=== PATIENT | female | born 1990 | race Hispanic/Latino ===

== ENCOUNTER 2019-03-29 19:03 | Inpatient (IN) | payer MEDICAID ==
[~2019-03-29 19:03] MED LIST: ADRENALIN ONE; CALCIUM CHLORIDE IV ONE; D50W (25GM) Syringe IV ONE; NALOXONE ONE
[2019-03-29] MEDS ORDERED: NACL 0.9% 1000 ML 1,000 ML IV ONE ×4 (19:15→20:34)
--- NOTE | 2019-03-29 19:19 | Emergency Department Report ---
ED CPR HPI - General Stated Complaint: CARDIAC ARREST Time Seen by Provider: 03/29/19 19:03 Source: EMS Mode of arrival: Stretcher Limitations: Altered Mental Status, Physical Limitation - History of Present Illness Initial Comments: Patient is a 28-year-old female that presents emergency room in cardiac arrest. Patient found unresponsive by EMS. Report received from EMS. EMS states the patient was traveling from [place] to [place] and at 10:30 this morning got Robaxin to take a nap and it was her last known well time. Patient's friend was in the car did not realize until he got to a gas station close to the hospital the patient was monologue. The friend then called EMS. EMS started chest compressions and intubated the patient. Patient received multiple rounds of epi. Complaint: found unresponsive, unknown -: unknown Place: other Bystander CPR Performed: No AED Applied by Bystander/Javascript Engineer: No Shock Advised: No (N Wu) Initial Findings in the Field: unresponsive, no respirations, no pulse ROSC in the Field: No Associated Injuries: No Treatments Prior to Arrival: intubation, BMV, chest compressions, epinephrine mgs # - Related Data Allergies Allergy/AdvReac Type Severity Reaction Status Date / Time Unable to Assess Allergy Unverified 03/29/19 19:21 ED Review of Systems ROS: Stated complaint: CARDIAC ARREST Other details as noted in HPI Comment: Unobtainable due to pts medical conditions ED Physical Exam - General Limitations: Altered Mental Status, Physical Limitation, Other General appearance: obtunded - Head Head exam: Present: atraumatic, normocephalic - Eye Eye exam: Present: other (pupils fixed and dilated) - ENT ENT exam: Present: mucous membranes dry - Neck Neck exam: Present: normal inspection - Respiratory Respiratory exam: Present: other (patient intubated. T tube placement verified with bilateral breath sounds). Absent: respiratory distress - Cardiovascular Cardiovascular Exam: Present: other (patient pulseless on arrival) - GI/Abdominal GI/Abdominal exam: Present: soft - Rectal Rectal exam: Present: deferred - Extremities Exam Extremities exam: Present: normal inspection (except for track beebe on left AC) - Back Exam Back exam: Present: normal inspection - Neurological Exam Neurological exam: Present: altered - Skin Skin exam: Present: warm, dry, normal color, other (track beebe noted on left AC). Absent: rash ED Course Vital Signs 03/29/19 03/29/19 03/29/19 19:35 20:52 23:50 Pulse Rate 80 84 131 H Blood Pressure 77/34 83/39 90/32 O2 Sat by Pulse 97 100 100 Oximetry - Reevaluation(s) Reevaluation #1: CPR and chest compressions being done by EMS. Patient received. Report received from EMS. Cardiac arrest and code continued. Patient given multiple medications. See code note. 03/29/19 18:57 Reevaluation #2: Code Ran in accordance with ACLS guidelines. Patient had spontaneous return of circulation after going into V. fib and patient was shocked. See code note. She received bicarbonate, atropine, calcium during code. 03/29/19 19:10 Reevaluation #3: Patient started on Epi drip. pt hypotense. 03/29/19 19:20 Reevaluation #4: Maxed on epi drip and will be placed on Levophed 03/29/19 20:06 Labs came back patient is in DKA. Patient was DK protocol and insulin drip. Patient will be given more fluids. Patient is are received 3 L of normal saline. Patient's significant acidotic given some more bicarbonate. 03/29/19 20:36 Patient is currently on 2 drips. Patient will have a central line placed 03/29/19 20:41 Central line placed. See procedure note. Patient is still hypotensive. 03/29/19 21:29 Patient still hypotensive. Dobutamine drip has been added. Patient was started on a bicarbonate drip 03/29/19 22:20 Reevaluation #5: Is currently on dobutamine, appendectomy and norepinephrine and patient is still hypotensive. 03/29/19 23:13 - Consultations Consultation #1: Hospitalist consult for admission. Hospitalist admit patient. 03/29/19 23:13 - Central Line Placement Right Femoral Consent Obtained: emergent situation Time Out Performed: Yes Patient Placed on Monitor/Pulse Ox: Yes MD Prep: mask, gown, gloves Central Line Prep: Chlorhexidine scrub, sterile drapes applied Ultrasound Used for Placement: Yes Central Line Lumen Inserted: triple Bloods Obtained for Lab: Yes Central Line Position: good blood return, all ports aspirated, flus, sutured in place with 2-0 Dressing Applied: Tegaderm Patient Tolerated Procedure: well, no complications Complications: none ED Medical Decision Making - Lab Data Result diagrams: 03/29/19 19:20 03/30/19 00:11 - EKG Data -: EKG Interpreted by Me EKG shows normal: sinus rhythm, axis, intervals, QRS complexes, ST-T waves Rate: normal - EKG Data Interpretation: [facility] - Radiology Data Radiology results: report reviewed, image reviewed interpreted by me: ET tube in good placement. Negative chest x-ray CT HEAD WITHOUT CONTRAST INDICATION / CLINICAL INFORMATION: ams. cardiac arrest. TECHNIQUE: All CT scans at this location are performed using CT dose reduction for ALARA by means of automated exposure control. COMPARISON: None available. FINDINGS: Exam islimited secondary to moderate motion artifact. HEMORRHAGE: None. EXTRA-AXIAL SPACES: Normal in size and morphology for the patient's age. VENTRICULAR SYSTEM: Normal in size and morphology for the patient's age. CEREBRAL PARENCHYMA: No significant abnormality. No acute territorial infarct. MIDLINE SHIFT OR HERNIATION: None. CEREBELLUM / BRAINSTEM: No significant abnormality. ORBITS: Normal as visualized. SOFT TISSUES of HEAD: No significant abnormality. CALVARIUM: No significant abnormality. PARANASAL SINUSES / MASTOID AIR CELLS: Normal as visualized. ADDITIONAL FINDINGS: None. IMPRESSION: 1. No acute intracranial abnormality. - Medical Decision Making Patient is a 28-year-old female that presents emergency room for cardiac arrest. code ran in accordance with ACLS guidelines. During code, patient had spontaneous return of circulation. Patient placed on pressors for hypotension. Patient had a central line placed. Patient's head CT negative. Patient's chest x-ray is negative except for ET tube in good place. Patient has multiple lab abnormalities and found to be in DKA and acidosis. Patient placed on insulin drip. Patient was given calcium during the code. Patient given multiple amps of bicarbonate and eventually placed on bicarbonate drip. She given empiric antibiotics in the ER. Patient given multiple normal saline boluses - Differential Diagnosis cardiac arrest. Critical Care Time: Yes Critical care attestation.: If time is entered above; I have spent that time in minutes in the direct care of this critically ill patient, excluding procedure time. Critical Care Time: 85 minutes ED Disposition Clinical Impression: Cardiac arrest, Hyperglycemia, Hyperkalemia, Hyperphosphatemia, Hypermagnesemia DKA, type 1 Qualifiers: Diabetes mellitus complication detail: with coma Qualified Code(s): E10.11 - Type 1 diabetes mellitus with ketoacidosis with coma Hypotension Qualifiers: Hypotension type: unspecified hypotension type Qualified Code(s): I95.9 - Hypotension, unspecified Renal failure Qualifiers: Renal failure chronicity: acute Acute renal failure type: unspecified Qualified Code(s): N17.9 - Acute kidney failure, unspecified Anemia Qualifiers: Anemia type: unspecified type Qualified Code(s): D64.9 - Anemia, unspecified Disposition: DC-09 OP ADMIT IP TO THIS HOSP Is pt being admited?: Yes Does the pt Need Aspirin: No Condition: Critical Time of Disposition: 23:22
[2019-03-29 19:28] LABS: Mean Corpuscular HGB Conc 22 % (30-34); Platelet Count 377 K/mm3 (140-440); Red Blood Count 2.52 M/mm3 (3.65-5.03); Red Cell Distribution Width 18.5 % (13.2-15.2)
[2019-03-29] MEDS ORDERED: ADRENALIN 8 MG in NACL 0.9% 250ML 242 ML IV ONE (19:30)
[2019-03-29 19:34] LABS: Hematocrit 37.3 % (30.3-42.9); Hemoglobin 8.1 gm/dl (10.1-14.3); Mean Corpuscular Volume 148 fl (79-97)
[2019-03-29 19:38] LABS: INR 1.95 (0.87-1.13)
[2019-03-29 19:46] LABS: Albumin 2.8 g/dL (3.9-5); BUN/Creatinine Ratio 25; Blood Urea Nitrogen 53 mg/dL (7-17); Hemolysis Index 15
[2019-03-29 19:47] LABS: Partial Thromboplastin Time 74.5 Sec. (24.2-36.6)
--- NOTE | 2019-03-29 20:02 | XRay Report ---
CHEST 1 VIEW INDICATION / CLINICAL INFORMATION: cardia arrest. s/p et. COMPARISON: None available. FINDINGS: SUPPORT DEVICES: Endotracheal tube is seen in good position above the melina. HEART / MEDIASTINUM: No significant abnormality. LUNGS / PLEURA: The right lung is clear. There is patchy density in the left lower lobe. No effusions are seen. No pneumothorax. ADDITIONAL FINDINGS: No significant additional findings. IMPRESSION: 1 Endotracheal tube in good position. Signer Name: Toni Ragsdale MD Signed: 03/29/2019 7:58 PM Workstation Name: [id number]
[2019-03-29] MEDS ORDERED: CEFEPIME/NS 2 GM/100 ML 2 GM/100 ML BAG IV ONE (20:08)
[2019-03-29] MEDS ORDERED: LEVOPHED DRIP 4 MG/NS 250 ML 4 MG/250 ML BAG IV ONE (20:09)
[2019-03-29 20:13] LABS: Alanine Aminotransferase 1034 units/L (7-56)
[2019-03-29] MEDS: LEVOPHED DRIP 4 MG/NS 250 ML 4 MG/250 ML BAG IV SCH (20:15)
[2019-03-29 20:17] LABS: Calcium 12.4 mg/dL (8.4-10.2)
[2019-03-29 20:25] LABS: Basophils % (Manual) 0 % (0.0-1.8); Eosinophils % (Manual) 0 % (0.0-4.3); Macrocytosis 2+; Myelocytes # (Manual) 0.3 K/mm3; Total Cells Counted 100
[2019-03-29 20:26] LABS: Large Platelets 1+; Platelet Clumps Few; Platelet Estimate Consistent w Auto; Poikilocytosis 1+
[2019-03-29] MEDS ORDERED: DOBUTREX DRIP 500MG/D5W 250ML 500 MG/250 ML BAG IV ONE (21:29)
[2019-03-29 21:42] LABS: Calcium 9.4 mg/dL (8.4-10.2)
[2019-03-29] MEDS: HumuLIN R 100 UNITS in NACL 0.9% 99 ML IV SCH (22:00)
[2019-03-29] MEDS ORDERED: KIONEX PO ONE (22:18)
[2019-03-29] MEDS ORDERED: SODIUM BICARBONATE 150 MEQ in D5W 1,000 ML IV ONE (22:20)
[2019-03-29] MEDS ORDERED: KIONEX ONE (23:28)
[2019-03-29 23:29] LABS: Calcium 8.4 mg/dL (8.4-10.2)
[2019-03-29] MEDS ORDERED: ZOFRAN IV PRN (23:34)
--- NOTE | 2019-03-29 23:43 | History and Physical Report ---
History of Present Illness Date of examination: 03/29/19 History of present illness: 28 year old woman with a history of diabetes was brought to the emergency room [facility]. Her last well-known time was 10:30 this morning, she was traveling with a friend, she was unresponsive in the back seat. EMS was called, CPR was s tarted and continued here in the emergency room. Patient was intubated in the ER, hypotensive started on dobutamine, epinephrine and Levophed drip, given IV fluids, found to be in DKA with several metabolic derangements. Review of system is unobtainable PAST MEDICAL HISTORY:diabetes PAST SURGICAL HISTORY:Unknown FAMILY HISTORY:Unknown SOCIAL HISTORY:Unknown Medications and Allergies Allergies Allergy/AdvReac Type Severity Reaction Status Date / Time quetiapine [From Seroquel] Allergy Rash Verified 03/30/19 11:28 Home Medications Medication Instructions Recorded Confirmed Last Taken Type ALPRAZolam [Xanax TAB] 0.25 mg PO QID 04/02/19 04/02/19 Unknown History HYDROcodone/APAP 7.5-325 7.5 - 325 mg PO Q6H PRN 04/02/19 04/02/19 Unknown History Insulin Aspart [NovoLOG 100 5 units SQ QAC 04/02/19 04/02/19 Unknown History UNITS/ML VIAL] Insulin Detemir [Levemir VIAL] 5 unit SQ BID 04/02/19 04/02/19 Unknown History Lurasidone HCl [Latuda] 80 mg PO QHS 04/02/19 04/02/19 Unknown History Ondansetron [Zofran TAB] 4 mg PO BID PRN 04/02/19 04/02/19 Unknown History Active Meds: Active Medications Acetaminophen (Tylenol) 650 mg PO Q4H PRN PRN Reason: Pain MILD(1-3)/Fever >100.5/WARE Dextrose (D50w (25gm) Syringe) 0 ml IV PRN PRN PRN Reason: Hypoglycemia Epinephrine 8 mg/ Sodium (Chloride) 250 mls @ 3.75 mls/hr IV TITR ONE; Protocol Stop: 04/01/19 14:09 Norepinephrine (Levophed Drip 4 Mg/Ns 250 Ml) 4 mg in 250 mls @ 7.5 mls/hr IV TITR ZAMZAM; Protocol Insulin Human Regular 100 (units/ Sodium Chloride) 100 mls @ 1 mls/hr IV TITR ZAMZAM; Protocol Sodium Bicarbonate 150 meq/ (Dextrose) 1,150 mls @ 75 mls/hr IV DIRECT ONE Stop: 03/30/19 13:39 Vasopressin 20 unit/ Sodium (Chloride) 101 mls @ 9.09 mls/hr IV TITR ZAMZAM; Protocol Vancomycin HCl (Vancomycin/Ns 1 Gm/250 Ml) 1 gm in 250 mls @ 167.007 mls/hr IV ONCE ONE; Protocol Stop: 03/30/19 01:02 Sodium Chloride (Nacl 0.9% 1000 Ml) 1,000 mls @ 150 mls/hr IV DIRECT ZAMZAM Dextrose/Sodium Chloride (D5/0.45ns) 1,000 mls @ 150 mls/hr IV DIRECT ZAMZAM Piperacillin Sod/Tazobactam Sod (Zosyn/Ns 2.25 Gm/50ml) 2.25 gm in 50 mls @ 100 mls/hr IV Q8HR ZAMZAM; Protocol Ondansetron HCl (Zofran) 4 mg IV Q8H PRN PRN Reason: Nausea And Vomiting Sodium Chloride (Sodium Chloride Flush Syringe 10 Ml) 10 ml IV BID ZAMZAM Sodium Chloride (Sodium Chloride Flush Syringe 10 Ml) 10 ml IV PRN PRN PRN Reason: LINE FLUSH Exam - Physical Exam Narrative exam: General Apperance: The patient lying in bed no acute distress, intubated HEENT: Normocephalic, atraumatic. Pupils equally round, pinpoint and reactive to light, unable to do extraocular movement intact, and no sclericterus or JVD or thyromegaly or nodule. Neck supple, no carotid bruit, mucous membranes dry, ET tube in place Heart: S1-S2, regular is rhythm Lungs: Clear to auscultation bilaterally, breathing comfortable Abdomen: Positive bowel sounds, soft, nondistended, no organomegaly Extremities: No edema cyanosis clubbing Skin: no rash, nodule, warm and dry Neuro: sedated - Constitutional Vitals: Temp Pulse Resp BP Pulse Ox 84 83/39 100 03/29/19 20:52 03/29/19 20:52 03/29/19 20:52 Results - Labs CBC & Chem 7: 04/09/19 05:35 04/09/19 05:35 Labs: Abnormal lab results 03/29/19 03/29/19 03/29/19 Range/Units 19:20 19:20 19:20 WBC 26.7 H (4.5-11.0) K/mm3 RBC 2.52 L (3.65-5.03) M/mm3 Hgb 8.1 L (10.1-14.3) gm/dl MCV 148 H (79-97) fl MCHC 22 L (30-34) % RDW 18.5 H (13.2-15.2) % Seg Neuts % (Manual) 82.0 H (40.0-70.0) % Lymphocytes % (Manual) 7.0 L (13.4-35.0) % Seg Neutrophils # Man 21.9 H (1.8-7.7) K/mm3 Monocytes # (Manual) 1.9 H (0.0-0.8) K/mm3 PT 21.8 H (12.2-14.9) Sec. INR 1.95 H (0.87-1.13) APTT 74.5 H* (24.2-36.6) Sec. POC ABG pH (7.35-7.45) POC ABG pO2 (80-105) VBG pH (7.320-7.420) Sodium 118 L* (137-145) mmol/L Potassium 9.0 H* (3.6-5.0) mmol/L Chloride 64.5 L (98-107) mmol/L Carbon Dioxide 7 L* (22-30) mmol/L BUN 53 H (7-17) mg/dL Creatinine 2.1 H (0.7-1.2) mg/dL Glucose 2196 H* (65-100) mg/dL Calcium 12.4 H* (8.4-10.2) mg/dL Phosphorus (2.5-4.5) mg/dL Magnesium (1.7-2.3) mg/dL AST 3900 H (5-40) units/L ALT 1034 H (7-56) units/L Alkaline Phosphatase 316 H (35-129) units/L Total Protein 5.1 L (6.3-8.2) g/dL Albumin 2.8 L (3.9-5) g/dL 03/29/19 03/29/19 03/29/19 Range/Units 19:47 20:59 22:45 WBC (4.5-11.0) K/mm3 RBC (3.65-5.03) M/mm3 Hgb (10.1-14.3) gm/dl MCV (79-97) fl MCHC (30-34) % RDW (13.2-15.2) % Seg Neuts % (Manual) (40.0-70.0) % Lymphocytes % (Manual) (13.4-35.0) % Seg Neutrophils # Man (1.8-7.7) K/mm3 Monocytes # (Manual) (0.0-0.8) K/mm3 PT (12.2-14.9) Sec. INR (0.87-1.13) APTT (24.2-36.6) Sec. POC ABG pH 6.892 L (7.35-7.45) POC ABG pO2 236 H (80-105) VBG pH 6.800 L* (7.320-7.420) Sodium (137-145) mmol/L Potassium (3.6-5.0) mmol/L Chloride 84.3 L (98-107) mmol/L Carbon Dioxide (22-30) mmol/L BUN 48 H (7-17) mg/dL Creatinine 1.8 H (0.7-1.2) mg/dL Glucose (65-100) mg/dL Calcium (8.4-10.2) mg/dL Phosphorus (2.5-4.5) mg/dL Magnesium (1.7-2.3) mg/dL AST (5-40) units/L ALT (7-56) units/L Alkaline Phosphatase (35-129) units/L Total Protein (6.3-8.2) g/dL Albumin (3.9-5) g/dL 03/29/19 03/29/19 Range/Units Unknown Unknown WBC (4.5-11.0) K/mm3 RBC (3.65-5.03) M/mm3 Hgb (10.1-14.3) gm/dl MCV (79-97) fl MCHC (30-34) % RDW (13.2-15.2) % Seg Neuts % (Manual) (40.0-70.0) % Lymphocytes % (Manual) (13.4-35.0) % Seg Neutrophils # Man (1.8-7.7) K/mm3 Monocytes # (Manual) (0.0-0.8) K/mm3 PT (12.2-14.9) Sec. INR (0.87-1.13) APTT (24.2-36.6) Sec. POC ABG pH (7.35-7.45) POC ABG pO2 (80-105) VBG pH (7.320-7.420) Sodium 122 L (137-145) mmol/L Potassium 7.9 H* (3.6-5.0) mmol/L Chloride 75.3 L (98-107) mmol/L Carbon Dioxide 3 L* (22-30) mmol/L BUN 52 H (7-17) mg/dL Creatinine 2.0 H (0.7-1.2) mg/dL Glucose 2043 H* (65-100) mg/dL Calcium (8.4-10.2) mg/dL Phosphorus 19.30 H (2.5-4.5) mg/dL Magnesium 3.90 H (1.7-2.3) mg/dL AST (5-40) units/L ALT (7-56) units/L Alkaline Phosphatase (35-129) units/L Total Protein (6.3-8.2) g/dL Albumin (3.9-5) g/dL - Imaging and Cardiology EKG: image reviewed Chest x-ray: report reviewed Assessment and Plan Assessment Acute respiratory failure Cardiac arrest DKA, severe Hypotension, rule out sepsis Acute renal failure Hyperkalemia Shock liver Coagulopathy Hypermagnesemia Hyperphosphatemia Metabolic acidosis Plan Admit to medicine Discontinue dobutamine, epinephrine drip, patient with severe tachycardia Start vasopressin, continue Levophed drip, start IV fluid Initiate DKA protocol with insulin drip, fluids, status post cocktail for hyperkalemia Check cardiac enzymes, echo, monitor serial electrolytes Consult critical care, cardiology Start Vancomycin, Zosyn, follow cultures CT head pending Addendum Patient still tachycardic 140s, lopressor 2.5 given with good results Charge nurse spoke with mother, states patient is non-compliant, history of drug use she was just discharged from the hospital on Tuesday for DKA Addendum Patient had few episodes of seizure, aborted with IV Ativan Start Versed drip Addendum DC bicarbonate drip, repeat potassium Monitor sodium
[2019-03-29] MEDS ORDERED: D5/0.45NS 1,000 ML IV SCH (23:45)
[2019-03-29] MEDS ORDERED: NACL 0.9% 1000 ML 1,000 ML IV SCH (23:45)
[2019-03-29 23:55] LABS: Bilirubin,Urine NEG (Negative); Blood,Urine LG (Negative); Color,Urine Yellow (Yellow); Mucus,Urine FEW /HPF; Urobilinogen,Urine < 2.0 mg/dL (<2.0)
[2019-03-29 23:58] LABS: Amphetamine Screen,Urine PRESUMPTIVE NEGATIVE; Benzodiazepines Screen,Urine PRESUMPTIVE NEGATIVE; Cannabinoid Screen,Urine PRESUMPTIVE NEGATIVE; Cocaine Screen,Urine PRESUMPTIVE NEGATIVE; Methadone Screen,Urine PRESUMPTIVE NEGATIVE; Opiate Screen,Urine PRESUMPTIVE NEGATIVE
[2019-03-30 00:04] LABS: Creatine Kinase MB 3.1 ng/mL (0.0-4.0)
[2019-03-30 00:33] LABS: Calcium 7.8 mg/dL (8.4-10.2)
[2019-03-30] MEDS ORDERED: VANCOMYCIN/NS 1 GM/250 ML 1 GM/250 ML BAG IV ONE (01:00)
[2019-03-30] MEDS ORDERED: LEVOPHED DRIP 4 MG/NS 250 ML 4 MG/250 ML BAG IV ONE ×4 (01:21→08:55)
--- NOTE | 2019-03-30 02:08 | Cat Scan Report ---
CT HEAD WITHOUT CONTRAST INDICATION / CLINICAL INFORMATION: ams. cardiac arrest. TECHNIQUE: All CT scans at this location are performed using CT dose reduction for ALARA by means of automated e xposure control. COMPARISON: None available. FINDINGS: Exam islimited secondary to moderate motion artifact. HEMORRHAGE: None. EXTRA-AXIAL SPACES: Normal in size and morphology for the patient's age. VENTRICULAR SYSTEM: Normal in size and morphology for the patient's age. CEREBRAL PARENCHYMA: No significant abnormality. No acute territorial infarct. MIDLINE SHIFT OR HERNIATION: None. CEREBELLUM / BRAINSTEM: No significant abnormality. ORBITS: Normal as visualized. SOFT TISSUES of HEAD: No significant abnormality. CALVARIUM: No significant abnormality. PARANASAL SINUSES / MASTOID AIR CELLS: Normal as visualized. ADDITIONAL FINDINGS: None. IMPRESSION: 1. No acute intracranial abnormality. Signer Name: Unruly Hurtado MD Signed: 03/30/2019 2:04 AM Workstation Name: [id number]
[2019-03-30] MEDS ORDERED: METOPROLOL IV ONE ×2 (02:36→02:45)
[2019-03-30] MEDS: Vasostrict 20 UNIT in NACL 0.9% 100 ML IV SCH ×2 (02:40→17:18)
[2019-03-30 02:49] LABS: Calcium 7.9 mg/dL (8.4-10.2)
[2019-03-30] MEDS ORDERED: TYLENOL PR ONE ×2 (04:14→04:15)
[2019-03-30] MEDS ORDERED: NACL 0.9% 1000 ML 2,000 ML IV ONE (04:20)
[2019-03-30] MEDS: PHENYLEPHRINE IV SCH ×2 (04:20→11:00)
[2019-03-30] MEDS: NACL 0.9% IV SCH ×2 (04:20→11:00)
[2019-03-30] MEDS ORDERED: NACL 0.9% 1000 ML 1,000 ML IV ONE (04:21)
[2019-03-30] MEDS ORDERED: NACL 0.9% 1000 ML 2,000 ML ONE (04:22)
[2019-03-30] MEDS ORDERED: ATIVAN IV ONE ×2 (04:35→13:00)
[2019-03-30] MEDS ORDERED: ATIVAN ONE ×2 (04:38→11:24)
[2019-03-30] MEDS ORDERED: MIDAZOLAM 100 MG in NACL 0.9% 80 ML IV SCH ×2 (05:00→14:00)
[2019-03-30] MEDS ORDERED: NACL 0.9% 1000 ML 1,000 ML IV SCH (05:00)
[2019-03-30 05:21] LABS: Hematocrit 23.8 % (30.3-42.9); Hemoglobin 7.3 gm/dl (10.1-14.3); Mean Corpuscular HGB Conc 31 % (30-34); Mean Corpuscular Volume 103 fl (79-97); Platelet Count 375 K/mm3 (140-440); Red Blood Count 2.31 M/mm3 (3.65-5.03); Red Cell Distribution Width 17.1 % (13.2-15.2)
[2019-03-30 05:58] LABS: Creatine Kinase MB 52.7 ng/mL (0.0-4.0)
[2019-03-30] MEDS ORDERED: ZOSYN/NS 2.25 GM/50ML 2.25 GM/50 ML BAG IV SCH ×2 (06:00→12:00)
[2019-03-30 06:13] LABS: Anisocytosis 1+; Band Neutrophils # (Manual) 0.7 K/mm3; Basophils % (Manual) 0 % (0.0-1.8); Eosinophils % (Manual) 0 % (0.0-4.3); Macrocytosis 1+; Total Cells Counted 100
[2019-03-30 06:14] LABS: Platelet Estimate Consistent w Auto
[2019-03-30 06:15] LABS: Albumin 2.4 g/dL (3.9-5); Calcium 7.3 mg/dL (8.4-10.2)
[2019-03-30] MEDS ORDERED: KCL 20MEQ/100ML 20 MEQ/100 ML BAG IV ONE (06:34)
[2019-03-30] MEDS ORDERED: KCL 10MEQ/100ML 20 MEQ/200 ML BAG IV ONE (06:39)
[2019-03-30] MEDS: KCL 10MEQ/100ML 10 MEQ/100 ML BAG IV SCH ×2 (06:40→11:36)
[2019-03-30] MEDS ORDERED: NACL 0.45% 1000 ML 1,000 ML IV SCH (08:00)
[2019-03-30] MEDS ORDERED: NACL 0.45% 1000 ML 1,000 ML IV ONE (08:54)
--- NOTE | 2019-03-30 11:18 | Consultation ---
History of Present Illness Consult date: 03/30/19 Requesting physician: PEGGY XIONG Reason for consult: other (DKA; Pneumonia; Acute Hyopoxemic Resp Failure) History of present illness: PULMONARY/CCM CONSULT NOTE (Full dictation # [id number]) Please see dictated notes for full details Medications and Allergies Allergies Allergy/AdvReac Type Severity Reaction Status Date / Time quetiapine [From Seroquel] Allergy Rash Verified 03/30/19 11:28 Active Meds: Active Medications Acetaminophen (Tylenol) 650 mg PO Q4H PRN PRN Reason: Pain MILD(1-3)/Fever >100.5/WARE Dextrose (D50w (25gm) Syringe) 0 ml IV PRN PRN PRN Reason: Hypoglycemia Famotidine (Pepcid) 20 mg IV BID ZAMZAM Norepinephrine (Levophed Drip 4 Mg/Ns 250 Ml) 4 mg in 250 mls @ 7.5 mls/hr IV TITR ZAMZAM; Protocol Last Titration: 03/30/19 10:45 Dose: Infused Documented by: Insulin Human Regular 100 (units/ Sodium Chloride) 100 mls @ 1 mls/hr IV TITR ZAMZAM; Protocol Last Titration: 03/30/19 11:05 Dose: Infused Documented by: Vasopressin 20 unit/ Sodium (Chloride) 101 mls @ 9.09 mls/hr IV TITR ZAMZAM; Protocol Last Titration: 03/30/19 04:53 Dose: 0.1 units/min, 30.3 mls/hr Documented by: Phenylephrine HCl 100 mg/ (Sodium Chloride) 100 mls @ 3 mls/hr IV TITR ZAMZAM; Protocol Last Titration: 03/30/19 04:50 Dose: 200 mcg/min, 12 mls/hr Documented by: Midazolam HCl 100 mg/ Sodium (Chloride) 100 mls @ 2 mls/hr IV TITR ZAMZAM; Protocol Sodium Chloride (Nacl 0.45% 1000 Ml) 1,000 mls @ 125 mls/hr IV DIRECT ZAMZAM Piperacillin Sod/Tazobactam Sod (Zosyn/Ns 2.25 Gm/50ml) 2.25 gm in 50 mls @ 100 mls/hr IV Q6HR ZAMZAM; Protocol Ondansetron HCl (Zofran) 4 mg IV Q8H PRN PRN Reason: Nausea And Vomiting Sodium Chloride (Sodium Chloride Flush Syringe 10 Ml) 10 ml IV BID ZAMZAM Sodium Chloride (Sodium Chloride Flush Syringe 10 Ml) 10 ml IV PRN PRN PRN Reason: LINE FLUSH Physical Examination Vital signs: Vital Signs Pulse Resp BP 96 H 16 69/33 03/29/19 19:15 03/29/19 19:15 03/29/19 19:15 Results - Laboratory Findings CBC and BMP: 03/30/19 04:23 03/30/19 05:26 ABG POC ABG pH 7.251 (7.35-7.45) L 03/30/19 03:15 POC ABG pO2 156 (80-105) H 03/30/19 03:15 POC ABG HCO3 9.4 (22-26 mml/L) 03/30/19 03:15 POC ABG Total CO2 10 (23-27mmol/L) 03/30/19 03:15 POC ABG O2 Sat 99 03/30/19 03:15 PT/INR, D-dimer PT 21.8 Sec. (12.2-14.9) H 03/29/19 19:20 INR 1.95 (0.87-1.13) H 03/29/19 19:20 Abnormal lab findings: Abnormal Labs 03/29/19 03/29/19 03/29/19 19:20 19:20 19:20 WBC 26.7 H RBC 2.52 L Hgb 8.1 L Hct MCV 148 H MCHC 22 L RDW 18.5 H Seg Neuts % (Manual) 82.0 H Lymphocytes % (Manual) 7.0 L Seg Neutrophils # Man 21.9 H Monocytes # (Manual) 1.9 H PT 21.8 H INR 1.95 H APTT 74.5 H* POC ABG pH POC ABG pO2 VBG pH Sodium 118 L* Potassium 9.0 H* Chloride 64.5 L Carbon Dioxide 7 L* BUN 53 H Creatinine 2.1 H Glucose 2196 H* Calcium 12.4 H* Phosphorus Magnesium AST 3900 H ALT 1034 H Alkaline Phosphatase 316 H Total Creatine Kinase CK-MB (CK-2) Total Protein 5.1 L Albumin 2.8 L 03/29/19 03/29/19 03/29/19 19:47 20:59 22:45 WBC RBC Hgb Hct MCV MCHC RDW Seg Neuts % (Manual) Lymphocytes % (Manual) Seg Neutrophils # Man Monocytes # (Manual) PT INR APTT POC ABG pH 6.892 L POC ABG pO2 236 H VBG pH 6.800 L* Sodium 132 L D Potassium 7.0 H* Chloride 84.3 L Carbon Dioxide 3 L* BUN 48 H Creatinine 1.8 H Glucose 1779 H* Calcium Phosphorus Magnesium AST ALT Alkaline Phosphatase Total Creatine Kinase CK-MB (CK-2) Total Protein Albumin 03/29/19 03/29/19 03/29/19 22:45 22:45 Unknown WBC RBC Hgb Hct MCV MCHC RDW Seg Neuts % (Manual) Lymphocytes % (Manual) Seg Neutrophils # Man Monocytes # (Manual) PT INR APTT POC ABG pH POC ABG pO2 VBG pH Sodium Potassium Chloride Carbon Dioxide BUN Creatinine Glucose Calcium Phosphorus 21.70 H 19.30 H Magnesium 4.70 H 3.90 H AST ALT Alkaline Phosphatase Total Creatine Kinase 363 H CK-MB (CK-2) Total Protein Albumin 03/29/19 03/30/19 03/30/19 Unknown 00:11 00:11 WBC RBC Hgb Hct MCV MCHC RDW Seg Neuts % (Manual) Lymphocytes % (Manual) Seg Neutrophils # Man Monocytes # (Manual) PT INR APTT POC ABG pH POC ABG pO2 VBG pH Sodium 122 L Potassium 7.9 H* 6.4 H* Chloride 75.3 L 89.7 L Carbon Dioxide 3 L* 12 L D BUN 52 H 46 H Creatinine 2.0 H 1.7 H Glucose 2043 H* 1591 H* Calcium 7.8 L Phosphorus 10.90 H D Magnesium 3.10 H AST ALT Alkaline Phosphatase Total Creatine Kinase CK-MB (CK-2) Total Protein Albumin 03/30/19 03/30/19 03/30/19 02:14 02:14 03:15 WBC RBC Hgb Hct MCV MCHC RDW Seg Neuts % (Manual) Lymphocytes % (Manual) Seg Neutrophils # Man Monocytes # (Manual) PT INR APTT POC ABG pH 7.251 L POC ABG pO2 156 H VBG pH Sodium Potassium Chloride Carbon Dioxide 9 L* BUN 45 H Creatinine 1.7 H Glucose 1155 H* Calcium 7.9 L Phosphorus 5.30 H D Magnesium 2.90 H AST ALT Alkaline Phosphatase Total Creatine Kinase CK-MB (CK-2) Total Protein Albumin 03/30/19 03/30/19 03/30/19 04:23 05:26 05:26 WBC 18.0 H RBC 2.31 L Hgb 7.3 L Hct 23.8 L D MCV 103 H MCHC RDW 17.1 H Seg Neuts % (Manual) 79.0 H Lymphocytes % (Manual) Seg Neutrophils # Man 14.2 H Monocytes # (Manual) PT INR APTT POC ABG pH POC ABG pO2 VBG pH Sodium 158 H D Potassium 3.5 L Chloride 109.3 H Carbon Dioxide 19 L D BUN 40 H Creatinine 1.5 H Glucose 760 H* Calcium 7.3 L Phosphorus Magnesium 2.60 H AST 02468 H ALT 2156 H Alkaline Phosphatase 271 H Total Creatine Kinase 2465 H CK-MB (CK-2) 52.7 H Total Protein 4.5 L Albumin 2.4 L
[2019-03-30] MEDS ORDERED: SUBLIMAZE IV PRN (11:24)
[2019-03-30] MEDS: LEVOPHED DRIP 4 MG/NS 250 ML 4 MG/250 ML BAG IV SCH ×2 (11:28→17:22)
[2019-03-30] MEDS: PEPCID IV SCH ×2 (11:29→22:00)
[2019-03-30] MEDS: HumuLIN R 100 UNITS in NACL 0.9% 99 ML IV SCH (12:00)
[2019-03-30] MEDS ORDERED: KCL 10MEQ/100ML 10 MEQ/100 ML BAG IV SCH (12:00)
[2019-03-30 13:11] LABS: ABG Base Excess -5.4 mmol/L (-2.0-3.0); ABG HCO3 18.8 mmol/L (20.0-26.0); ABG Methemoglobin 0.7 % (0.0-1.5); ABG Oxygen Saturation 83.8 % (95.0-99.0); ABG PCO2 30.8 mm Hg; ABG PH 7.402 pH Units (7.350-7.450); ABG PO2 47.8 mm Hg (80.0-90.0)
[2019-03-30] MEDS ORDERED: VERSED IV PRN (13:14)
[2019-03-30 13:45] LABS: INR 1.86 (0.87-1.13)
[2019-03-30 13:49] LABS: Calcium 7.2 mg/dL (8.4-10.2)
[2019-03-30] MEDS ORDERED: ZITHROMAX 500 MG in NACL 0.9% 250ML 250 ML IV SCH (14:00)
[2019-03-30] MEDS: D5W/0.45% NACL/KCL 20 MEQ 20 MEQ/1,000 ML BAG IV SCH (14:02)
[2019-03-30] MEDS: KEPPRA 500 MG in D5W 100 ML IV SCH ×2 (14:06→23:00)
[2019-03-30] MEDS: FLAGYL 500 MG/100 ML 500 MG/100 ML BAG IV SCH ×2 (14:11→23:00)
--- NOTE | 2019-03-30 14:12 | Event Note ---
Date: 03/30/19 Patient seen and examined Intubated on Vent, on pressor support, insulin drip, iv fluid Presented with cardiac arrest, respiratory failure, BG of 1779, K 7.0, Cr 2.1 cont current Mx and plan, monitor BMP, cont insulin drip, wean off vent and pressure support as tolerated
[2019-03-30 14:24] LABS: Calcium 7.2 mg/dL (8.4-10.2)
--- NOTE | 2019-03-30 14:33 | Consultation ---
History of Present Illness - Reason for Consult Consult date: 03/30/19 - History of Present Illness 28 yo F PMHx T1DM admitted to the hospital after being found unresponsive in DKA. She was travelling from [place] to [place] with a friend and was sleeping in the backseat of the car. It was wasn't noticed that she was unresponsive until they were at a gas station near here and EMS was called who performed chest compressions and intubated the patient. She was last known to be well at 10:30 this morning. On admission she was found to be in DKA with numerous metabolic derangements and acute liver injury. Febrile on admission to 101.2 with an improving leukocytosis to 18 from 26. She is currently receiving azithromycin, cefepime, metronidazole. 03/29 blood and sputum cultures are pending. Images personally reviewed: 03/[address] - without abnormality 03/29 CXR: LL patchy density. Past History Past Medical History: diabetes Past Surgical History: Other (Unable to obtain) Social history: other (Unable to obtain) Family history: other (Unable to obtain) Medications and Allergies Allergies Allergy/AdvReac Type Severity Reaction Status Date / Time quetiapine [From Seroquel] Allergy Rash Verified 03/30/19 11:28 Active Meds: Active Medications Acetaminophen (Tylenol) 650 mg PO Q4H PRN PRN Reason: Pain MILD(1-3)/Fever >100.5/WARE Dextrose (D50w (25gm) Syringe) 0 ml IV PRN PRN PRN Reason: Hypoglycemia Famotidine (Pepcid) 20 mg IV BID ZAMZAM Last Admin: 03/30/19 11:29 Dose: 20 mg Documented by: Fentanyl (Sublimaze) 50 mcg IV Q10MIN PRN PRN Reason: ANALGESIA Heparin Sodium (Porcine) (Heparin) 5,000 unit SUB-Q Q12HR ZAMZAM Hydrophilic Ointment (Vaseline Lip Therapy) 1 applic TP Q2HR PRN PRN Reason: Dry Lips Norepinephrine (Levophed Drip 4 Mg/Ns 250 Ml) 4 mg in 250 mls @ 7.5 mls/hr IV TITR ZAMZAM; Protocol Last Admin: 03/30/19 11:28 Dose: 18 mcg/min, 67.5 mls/hr Documented by: Insulin Human Regular 100 (units/ Sodium Chloride) 100 mls @ 1 mls/hr IV TITR ZAMZAM; Protocol Last Titration: 03/30/19 13:05 Dose: 2.5 units/hr, 2.5 mls/hr Documented by: Vasopressin 20 unit/ Sodium (Chloride) 101 mls @ 9.09 mls/hr IV TITR ZAMZAM; Protocol Last Titration: 03/30/19 04:53 Dose: 0.1 units/min, 30.3 mls/hr Documented by: Phenylephrine HCl 100 mg/ (Sodium Chloride) 100 mls @ 3 mls/hr IV TITR ZAMZAM; Protocol Last Admin: 03/30/19 11:00 Dose: 200 mcg/min, 12 mls/hr Documented by: Sodium Chloride (Nacl 0.45% 1000 Ml) 1,000 mls @ 125 mls/hr IV DIRECT ZAMZAM Fentanyl Citrate (Fentanyl Drip Premix) 2,000 mcg in 100 mls @ 2.2 mls/hr IV TITR ZAMZAM; Protocol Potassium Chloride/Dextrose/Sod Cl (D5w/0.45% Nacl/Kcl 20 Meq) 20 meq in 1,000 mls @ 125 mls/hr IV DIRECT ZAMZAM Last Admin: 03/30/19 14:02 Dose: 125 mls/hr Documented by: Levetiracetam 500 mg/ Dextrose 105 mls @ 400 mls/hr IV Q12HR ZAMZAM Last Admin: 03/30/19 14:06 Dose: 400 mls/hr Documented by: Metronidazole (Flagyl 500 Mg/100 Ml) 500 mg in 100 mls @ 100 mls/hr IV Q8HR ZAMZAM Last Admin: 03/30/19 14:11 Dose: 100 mls/hr Documented by: Cefepime HCl (Maxipime/Ns 2 Gm/100 Ml) 2 gm in 100 mls @ 200 mls/hr IV Q12HR ZAMZAM Azithromycin 500 mg/ Sodium (Chloride) 250 mls @ 250 mls/hr IV Q24HR ZAMZAM Last Admin: 03/30/19 13:53 Dose: 250 mls/hr Documented by: Midazolam HCl 100 mg/ Sodium (Chloride) 100 mls @ 2 mls/hr IV TITR ZAMZAM; Protocol Midazolam HCl (Versed) 2 mg IV Q10MIN PRN PRN Reason: Sedation Multi-Ingred Cream/Lotion/Oil/Oint (Artificial Tears Ophth Oint) 1 applic OU Q4HR PRN PRN Reason: Dry Eye(s) Ondansetron HCl (Zofran) 4 mg IV Q8H PRN PRN Reason: Nausea And Vomiting Sodium Chloride (Sodium Chloride Flush Syringe 10 Ml) 10 ml IV BID ZAMZAM Sodium Chloride (Sodium Chloride Flush Syringe 10 Ml) 10 ml IV PRN PRN PRN Reason: LINE FLUSH Review of Systems ROS unobtainable: due to endotracheal tube, due to mental status Physical Examination - Physical Exam Narrative exam: Physical Exam: Constitutional: Intubated, sedated Head, Ears, Nose: Normocephalic, atraumatic. External ears, nose normal Eyes: Conjunctivae/corneas clear. No icterus. No ptosis. Neck: Supple, no meningeal signs. Intubated Oral: dentition fair, no thrush Cardiovascular: S1, S2 normal. Respiratory: Good air entry, clear to auscultation bilaterally GI: Soft, non-tender; bowel sounds normal. No peritoneal signs. Musculoskeletal: No pedal edema, no cyanosis. Skin: No rash or abscess Hem/Lymphatic: No palpable cervical or supraclavicular nodes. No lymphangitis Neurological: Intubated, sedated - Constitutional Vitals: Vital Signs Temp Pulse Resp BP Pulse Ox 101.2 F H 120 H 32 H 125/73 95 03/30/19 04:00 03/30/19 11:08 03/30/19 07:45 03/30/19 07:45 03/30/19 11:08 Temperature -Last 24 Hours Temperature 101.2 F Temperature 97.9 F Temperature 90.2 F Results - Labs CBC & Chem 7: 03/30/19 04:23 03/30/19 Unknown Labs: Abnormal lab results 03/29/19 03/29/19 03/29/19 Range/Units 19:20 19:20 19:20 WBC 26.7 H (4.5-11.0) K/mm3 RBC 2.52 L (3.65-5.03) M/mm3 Hgb 8.1 L (10.1-14.3) gm/dl Hct (30.3-42.9) % MCV 148 H (79-97) fl MCHC 22 L (30-34) % RDW 18.5 H (13.2-15.2) % Seg Neuts % (Manual) 82.0 H (40.0-70.0) % Lymphocytes % (Manual) 7.0 L (13.4-35.0) % Seg Neutrophils # Man 21.9 H (1.8-7.7) K/mm3 Monocytes # (Manual) 1.9 H (0.0-0.8) K/mm3 PT 21.8 H (12.2-14.9) Sec. INR 1.95 H (0.87-1.13) APTT 74.5 H* (24.2-36.6) Sec. POC ABG pH (7.35-7.45) POC ABG pO2 (80-105) ABG pO2 (80.0-90.0) mm Hg ABG HCO3 (20.0-26.0) mmol/L ABG O2 Saturation (95.0-99.0) % ABG Base Excess (-2.0-3.0) mmol/L ABG Hemoglobin (12.0-16.0) gm/dl VBG pH (7.320-7.420) Oxyhemoglobin (95.0-99.0) % Sodium 118 L* (137-145) mmol/L Potassium 9.0 H* (3.6-5.0) mmol/L Chloride 64.5 L (98-107) mmol/L Carbon Dioxide 7 L* (22-30) mmol/L BUN 53 H (7-17) mg/dL Creatinine 2.1 H (0.7-1.2) mg/dL Glucose 2196 H* (65-100) mg/dL Lactic Acid (0.7-2.0) mmol/L Calcium 12.4 H* (8.4-10.2) mg/dL Phosphorus (2.5-4.5) mg/dL Magnesium (1.7-2.3) mg/dL AST 3900 H (5-40) units/L ALT 1034 H (7-56) units/L Alkaline Phosphatase 316 H (35-129) units/L Total Creatine Kinase (30-135) units/L CK-MB (CK-2) (0.0-4.0) ng/mL C-Reactive Protein (0.00-1.30) mg/dL Total Protein 5.1 L (6.3-8.2) g/dL Albumin 2.8 L (3.9-5) g/dL 09/05/19 09/05/19 09/05/19 Range/Units 19:47 20:59 22:45 WBC (4.5-11.0) K/mm3 RBC (3.65-5.03) M/mm3 Hgb (10.1-14.3) gm/dl Hct (30.3-42.9) % MCV (79-97) fl MCHC (30-34) % RDW (13.2-15.2) % Seg Neuts % (Manual) (40.0-70.0) % Lymphocytes % (Manual) (13.4-35.0) % Seg Neutrophils # Man (1.8-7.7) K/mm3 Monocytes # (Manual) (0.0-0.8) K/mm3 PT (12.2-14.9) Sec. INR (0.87-1.13) APTT (24.2-36.6) Sec. POC ABG pH 6.892 L (7.35-7.45) POC ABG pO2 236 H (80-105) ABG pO2 (80.0-90.0) mm Hg ABG HCO3 (20.0-26.0) mmol/L ABG O2 Saturation (95.0-99.0) % ABG Base Excess (-2.0-3.0) mmol/L ABG Hemoglobin (12.0-16.0) gm/dl VBG pH 6.800 L* (7.320-7.420) Oxyhemoglobin (95.0-99.0) % Sodium 132 L D (137-145) mmol/L Potassium 7.0 H* (3.6-5.0) mmol/L Chloride 84.3 L (98-107) mmol/L Carbon Dioxide 3 L* (22-30) mmol/L BUN 48 H (7-17) mg/dL Creatinine 1.8 H (0.7-1.2) mg/dL Glucose 1779 H* (65-100) mg/dL Lactic Acid (0.7-2.0) mmol/L Calcium (8.4-10.2) mg/dL Phosphorus (2.5-4.5) mg/dL Magnesium (1.7-2.3) mg/dL AST (5-40) units/L ALT (7-56) units/L Alkaline Phosphatase (35-129) units/L Total Creatine Kinase (30-135) units/L CK-MB (CK-2) (0.0-4.0) ng/mL C-Reactive Protein (0.00-1.30) mg/dL Total Protein (6.3-8.2) g/dL Albumin (3.9-5) g/dL 03/29/19 03/29/19 03/29/19 Range/Units 22:45 22:45 Unknown WBC (4.5-11.0) K/mm3 RBC (3.65-5.03) M/mm3 Hgb (10.1-14.3) gm/dl Hct (30.3-42.9) % MCV (79-97) fl MCHC (30-34) % RDW (13.2-15.2) % Seg Neuts % (Manual) (40.0-70.0) % Lymphocytes % (Manual) (13.4-35.0) % Seg Neutrophils # Man (1.8-7.7) K/mm3 Monocytes # (Manual) (0.0-0.8) K/mm3 PT (12.2-14.9) Sec. INR (0.87-1.13) APTT (24.2-36.6) Sec. POC ABG pH (7.35-7.45) POC ABG pO2 (80-105) ABG pO2 (80.0-90.0) mm Hg ABG HCO3 (20.0-26.0) mmol/L ABG O2 Saturation (95.0-99.0) % ABG Base Excess (-2.0-3.0) mmol/L ABG Hemoglobin (12.0-16.0) gm/dl VBG pH (7.320-7.420) Oxyhemoglobin (95.0-99.0) % Sodium (137-145) mmol/L Potassium (3.6-5.0) mmol/L Chloride (98-107) mmol/L Carbon Dioxide (22-30) mmol/L BUN (7-17) mg/dL Creatinine (0.7-1.2) mg/dL Glucose (65-100) mg/dL Lactic Acid (0.7-2.0) mmol/L Calcium (8.4-10.2) mg/dL Phosphorus 21.70 H 19.30 H (2.5-4.5) mg/dL Magnesium 4.70 H 3.90 H (1.7-2.3) mg/dL AST (5-40) units/L ALT (7-56) units/L Alkaline Phosphatase (35-129) units/L Total Creatine Kinase 363 H (30-135) units/L CK-MB (CK-2) (0.0-4.0) ng/mL C-Reactive Protein (0.00-1.30) mg/dL Total Protein (6.3-8.2) g/dL Albumin (3.9-5) g/dL 03/29/19 03/30/19 03/30/19 Range/Units Unknown 00:11 00:11 WBC (4.5-11.0) K/mm3 RBC (3.65-5.03) M/mm3 Hgb (10.1-14.3) gm/dl Hct (30.3-42.9) % MCV (79-97) fl MCHC (30-34) % RDW (13.2-15.2) % Seg Neuts % (Manual) (40.0-70.0) % Lymphocytes % (Manual) (13.4-35.0) % Seg Neutrophils # Man (1.8-7.7) K/mm3 Monocytes # (Manual) (0.0-0.8) K/mm3 PT (12.2-14.9) Sec. INR (0.87-1.13) APTT (24.2-36.6) Sec. POC ABG pH (7.35-7.45) POC ABG pO2 (80-105) ABG pO2 (80.0-90.0) mm Hg ABG HCO3 (20.0-26.0) mmol/L ABG O2 Saturation (95.0-99.0) % ABG Base Excess (-2.0-3.0) mmol/L ABG Hemoglobin (12.0-16.0) gm/dl VBG pH (7.320-7.420) Oxyhemoglobin (95.0-99.0) % Sodium 122 L (137-145) mmol/L Potassium 7.9 H* 6.4 H* (3.6-5.0) mmol/L Chloride 75.3 L 89.7 L (98-107) mmol/L Carbon Dioxide 3 L* 12 L D (22-30) mmol/L BUN 52 H 46 H (7-17) mg/dL Creatinine 2.0 H 1.7 H (0.7-1.2) mg/dL Glucose 2043 H* 1591 H* (65-100) mg/dL Lactic Acid (0.7-2.0) mmol/L Calcium 7.8 L (8.4-10.2) mg/dL Phosphorus 10.90 H D (2.5-4.5) mg/dL Magnesium 3.10 H (1.7-2.3) mg/dL AST (5-40) units/L ALT (7-56) units/L Alkaline Phosphatase (35-129) units/L Total Creatine Kinase (30-135) units/L CK-MB (CK-2) (0.0-4.0) ng/mL C-Reactive Protein (0.00-1.30) mg/dL Total Protein (6.3-8.2) g/dL Albumin (3.9-5) g/dL 03/30/19 03/30/19 03/30/19 Range/Units 02:14 02:14 03:15 WBC (4.5-11.0) K/mm3 RBC (3.65-5.03) M/mm3 Hgb (10.1-14.3) gm/dl Hct (30.3-42.9) % MCV (79-97) fl MCHC (30-34) % RDW (13.2-15.2) % Seg Neuts % (Manual) (40.0-70.0) % Lymphocytes % (Manual) (13.4-35.0) % Seg Neutrophils # Man (1.8-7.7) K/mm3 Monocytes # (Manual) (0.0-0.8) K/mm3 PT (12.2-14.9) Sec. INR (0.87-1.13) APTT (24.2-36.6) Sec. POC ABG pH 7.251 L (7.35-7.45) POC ABG pO2 156 H (80-105) ABG pO2 (80.0-90.0) mm Hg ABG HCO3 (20.0-26.0) mmol/L ABG O2 Saturation (95.0-99.0) % ABG Base Excess (-2.0-3.0) mmol/L ABG Hemoglobin (12.0-16.0) gm/dl VBG pH (7.320-7.420) Oxyhemoglobin (95.0-99.0) % Sodium (137-145) mmol/L Potassium (3.6-5.0) mmol/L Chloride (98-107) mmol/L Carbon Dioxide 9 L* (22-30) mmol/L BUN 45 H (7-17) mg/dL Creatinine 1.7 H (0.7-1.2) mg/dL Glucose 1155 H* (65-100) mg/dL Lactic Acid (0.7-2.0) mmol/L Calcium 7.9 L (8.4-10.2) mg/dL Phosphorus 5.30 H D (2.5-4.5) mg/dL Magnesium 2.90 H (1.7-2.3) mg/dL AST (5-40) units/L ALT (7-56) units/L Alkaline Phosphatase (35-129) units/L Total Creatine Kinase (30-135) units/L CK-MB (CK-2) (0.0-4.0) ng/mL C-Reactive Protein (0.00-1.30) mg/dL Total Protein (6.3-8.2) g/dL Albumin (3.9-5) g/dL 03/30/19 03/30/19 03/30/19 Range/Units 04:23 05:26 05:26 WBC 18.0 H (4.5-11.0) K/mm3 RBC 2.31 L (3.65-5.03) M/mm3 Hgb 7.3 L (10.1-14.3) gm/dl Hct 23.8 L D (30.3-42.9) % MCV 103 H (79-97) fl MCHC (30-34) % RDW 17.1 H (13.2-15.2) % Seg Neuts % (Manual) 79.0 H (40.0-70.0) % Lymphocytes % (Manual) (13.4-35.0) % Seg Neutrophils # Man 14.2 H (1.8-7.7) K/mm3 Monocytes # (Manual) (0.0-0.8) K/mm3 PT (12.2-14.9) Sec. INR (0.87-1.13) APTT (24.2-36.6) Sec. POC ABG pH (7.35-7.45) POC ABG pO2 (80-105) ABG pO2 (80.0-90.0) mm Hg ABG HCO3 (20.0-26.0) mmol/L ABG O2 Saturation (95.0-99.0) % ABG Base Excess (-2.0-3.0) mmol/L ABG Hemoglobin (12.0-16.0) gm/dl VBG pH (7.320-7.420) Oxyhemoglobin (95.0-99.0) % Sodium 158 H D (137-145) mmol/L Potassium 3.5 L (3.6-5.0) mmol/L Chloride 109.3 H (98-107) mmol/L Carbon Dioxide 19 L D (22-30) mmol/L BUN 40 H (7-17) mg/dL Creatinine 1.5 H (0.7-1.2) mg/dL Glucose 760 H* (65-100) mg/dL Lactic Acid (0.7-2.0) mmol/L Calcium 7.3 L (8.4-10.2) mg/dL Phosphorus (2.5-4.5) mg/dL Magnesium 2.60 H (1.7-2.3) mg/dL AST 27978 H (5-40) units/L ALT 2156 H (7-56) units/L Alkaline Phosphatase 271 H (35-129) units/L Total Creatine Kinase 2465 H (30-135) units/L CK-MB (CK-2) 52.7 H (0.0-4.0) ng/mL C-Reactive Protein (0.00-1.30) mg/dL Total Protein 4.5 L (6.3-8.2) g/dL Albumin 2.4 L (3.9-5) g/dL 03/30/19 03/30/1919 Range/Units 12:57 12:57 12:57 WBC (4.5-11.0) K/mm3 RBC (3.65-5.03) M/mm3 Hgb (10.1-14.3) gm/dl Hct (30.3-42.9) % MCV (79-97) fl MCHC (30-34) % RDW (13.2-15.2) % Seg Neuts % (Manual) (40.0-70.0) % Lymphocytes % (Manual) (13.4-35.0) % Seg Neutrophils # Man (1.8-7.7) K/mm3 Monocytes # (Manual) (0.0-0.8) K/mm3 PT 21.0 H (12.2-14.9) Sec. INR 1.86 H (0.87-1.13) APTT (24.2-36.6) Sec. POC ABG pH (7.35-7.45) POC ABG pO2 (80-105) ABG pO2 (80.0-90.0) mm Hg ABG HCO3 (20.0-26.0) mmol/L ABG O2 Saturation (95.0-99.0) % ABG Base Excess (-2.0-3.0) mmol/L ABG Hemoglobin (12.0-16.0) gm/dl VBG pH (7.320-7.420) Oxyhemoglobin (95.0-99.0) % Sodium 156 H (137-145) mmol/L Potassium 3.2 L (3.6-5.0) mmol/L Chloride 116.4 H (98-107) mmol/L Carbon Dioxide 21 L (22-30) mmol/L BUN 37 H (7-17) mg/dL Creatinine (0.7-1.2) mg/dL Glucose 162 H (65-100) mg/dL Lactic Acid (0.7-2.0) mmol/L Calcium 7.2 L (8.4-10.2) mg/dL Phosphorus (2.5-4.5) mg/dL Magnesium (1.7-2.3) mg/dL AST (5-40) units/L ALT (7-56) units/L Alkaline Phosphatase (35-129) units/L Total Creatine Kinase (30-135) units/L CK-MB (CK-2) (0.0-4.0) ng/mL C-Reactive Protein 2.40 H (0.00-1.30) mg/dL Total Protein (6.3-8.2) g/dL Albumin (3.9-5) g/dL 03/30/19 03/30/19 03/30/19 Range/Units 12:57 Unknown Unknown WBC (4.5-11.0) K/mm3 RBC (3.65-5.03) M/mm3 Hgb (10.1-14.3) gm/dl Hct (30.3-42.9) % MCV (79-97) fl MCHC (30-34) % RDW (13.2-15.2) % Seg Neuts % (Manual) (40.0-70.0) % Lymphocytes % (Manual) (13.4-35.0) % Seg Neutrophils # Man (1.8-7.7) K/mm3 Monocytes # (Manual) (0.0-0.8) K/mm3 PT (12.2-14.9) Sec. INR (0.87-1.13) APTT (24.2-36.6) Sec. POC ABG pH (7.35-7.45) POC ABG pO2 (80-105) ABG pO2 47.8 L (80.0-90.0) mm Hg ABG HCO3 18.8 L (20.0-26.0) mmol/L ABG O2 Saturation 83.8 L (95.0-99.0) % ABG Base Excess -5.4 L (-2.0-3.0) mmol/L ABG Hemoglobin 6.8 L (12.0-16.0) gm/dl VBG pH (7.320-7.420) Oxyhemoglobin 81.8 L (95.0-99.0) % Sodium 157 H (137-145) mmol/L Potassium 3.3 L (3.6-5.0) mmol/L Chloride 117.9 H (98-107) mmol/L Carbon Dioxide 20 L (22-30) mmol/L BUN 36 H (7-17) mg/dL Creatinine (0.7-1.2) mg/dL Glucose 150 H (65-100) mg/dL Lactic Acid 9.00 H* (0.7-2.0) mmol/L Calcium 7.2 L (8.4-10.2) mg/dL Phosphorus (2.5-4.5) mg/dL Magnesium (1.7-2.3) mg/dL AST (5-40) units/L ALT (7-56) units/L Alkaline Phosphatase (35-129) units/L Total Creatine Kinase (30-135) units/L CK-MB (CK-2) (0.0-4.0) ng/mL C-Reactive Protein (0.00-1.30) mg/dL Total Protein (6.3-8.2) g/dL Albumin (3.9-5) g/dL - Imaging and Cardiology Chest x-ray: image reviewed CT Scan - head: image reviewed Assessment and Plan Cultures: 03/29 BCx: pend 03/29 sputum Cx: pend A/P: 28 yo F PMHx T1DM admitted after receiving intubation and compressions due to non-responsiveness likely secondary to DKA 1. SIRS - likely secondary to DKA/resuscitation, possible infective component of aspiration PNA vs penumonitis. Leukocytosis improving. Pressor requirements imp roving 2. Aspiration pneumonia vs pneumonitis - unclear etiology so far. Recommend stopping azithromycin for now, continue cefepime and metronidazole. If continued improvement would recommend short course of 5 days. 3. Acute liver failure - Possibly secondary to DKA, but liver enzymes vastly and quickly increased. Will check acute hepatitis panel to rule out infectious etiology. 4. DKA - numerous metabolic derangements, per primary/ICU team 5. T1DM Recs: - stop azithromycin - continue cefepime renally dosed at 2g q12h, but kidney function improving so may need to increase to q8h shortly. - continue metronidazole 500mg q8h - check acute hepatitis panel (ordered by me) - follow liver function Thank you for the consult, we will continue to follow. MD Zofia Banuelos [facility] M: [phone] O: [phone] F: [phone]
[2019-03-30] MEDS: HEPARIN SUB-Q SCH ×2 (14:47→22:00)
[2019-03-30 15:23] LABS: Hepatitis B Surface Antigen Non-Reactive (Negative); Hepatitis C Virus Antibody Non-Reactive (NonReactive)
[2019-03-30] MEDS: SODIUM CHLORIDE FLUSH SYRINGE 10 ML IV SCH ×2 (17:56→22:00)
[2019-03-30] MEDS ORDERED: CEFEPIME/NS 2 GM/100 ML 2 GM/100 ML BAG IV SCH (22:00)
[2019-03-31] MEDS: LEVOPHED DRIP 4 MG/NS 250 ML 4 MG/250 ML BAG IV SCH ×2 (00:08→06:04)
[2019-03-31] MEDS: D50W (25GM) Syringe IV PRN (02:15)
--- NOTE | 2019-03-31 03:03 | Consultation ---
PULMONARY CRITICAL CARE CONSULTATION CONSULTING PHYSICIAN: Dr. Sandra Swanson. REASON FOR CONSULTATION: Acute hypoxemic respiratory failure, status post cardiac arrest. CHIEF COMPLAINT AND HISTORY OF PRESENT ILLNESS: As follows: The patient is a 28-year-old female with past medical history significant amongst other things for a diagnosis of brittle diabetes as well as some mild developmental delay, who was apparently traveling in a car with a friend through the [facility], I believe they say from [place]. The friend stopped at a gas station to buy gas and she was found unresponsive in the back seat. EMS was called. CPR was started. She was intubated en route. In the Emergency Room, she was intubated, hypotensive. She required vasopressor support. She was given IV fluids. She was found to be in severe diabetic ketoacidosis with multiple electrolyte derangements. Post-stabilization, she was brought up to the Intensive Care Unit where I stopped by to see her. When I stopped by to see her, she was resting in the bed. She was having some upper body jerks/movements. Her mother said that she does have a history of seizures and those sometimes manifested as the current movements. As far as I know, there was no vomiting or overt aspiration, although that is quite likely considering the history. Mother describes a history of polysubstance abuse. With regards to tobacco use/abuse, she has a 5+ pack year tobacco smoking history and about half a pack to one pack per day according to the mother. This really is as much of the history of presentation as I have. PAST MEDICAL HISTORY: Diabetes, chronic back pain, polysubstance abuse, seizure disorder, and medication noncompliance. PAST SURGICAL HISTORY: Unknown. MEDICATIONS: She was on at the time I stopped by to see her were reviewed. Pertinent medications included the following: Tylenol 650 mg p.o. q. 4 hours p.r.n. mild pain, Pepcid 20 mg IV b.i.d. Insulin drip was going at about 5 units per hour, Levophed drip was going at about 25 mcg per minute and I believe Mathew-Synephrine drip was going about 200 mcg per minute. She had also been on vasopressin at 0.03 units per minute. ALLERGIES: She has an allergy to SEROQUEL. Nature of this allergy is unknown. DIET: Well-built lady, acute weight loss or gain history is unknown. FAMILY AND SOCIAL HISTORY: Lives in the community. She does have a 5+ pack year tobacco smoking history as well as a history of polysubstance abuse. Family history is otherwise unknown. I do know she is twin. REVIEW OF SYSTEMS: Unobtainable secondary to the patient's medical and mental condition since she has been here, no gross hematochezia or melena, no gross hematuria, no bloody tracheal secretions. She is having an apparent seizure type activity. REVIEW OF SYSTEMS: Otherwise unobtainable or as in the body of history above. PHYSICAL EXAMINATION: VITAL SIGNS: On examination at presentation here, temperature rectally was 90.2 degrees Fahrenheit with a pulse of 85, respiratory rate of 21, blood pressure was as low as 77/34, O2 sats were 97%, inspired oxygen concentration at that time was not recorded. When I stopped by to see her, her sats were 98%. She was on the assist control mode of ventilation, tidal volume 350, rate of 30, 6 of PEEP and 40%. GENERAL: She is a somewhat chronically ill looking petite female, normocephalic. Appeared atraumatic with increased respiratory effort on the mechanical ventilator. HEAD, EYES, EARS, NOSE AND THROAT: She is anicteric. No conjunctival erythema. Endotracheal tube is taped at the lips around 20-23 cm. No thyromegaly, no gross jugular venous distention. Oropharynx is moist. NECK: Grossly, there were no palpable lymph nodes in the supraclavicular or submandibular lymph node chains. LUNGS: Auscultation of both lung ahumada, scant rhonchi in particularly on the left lung. No wheezing. HEART: Heart sounds 1 and 2 are heard. They were regular in rate and rhythm at the time of my evaluation without overt rubs or murmurs. ABDOMEN: Soft, full, bowel sounds are positive, nontender. There was no palpable hepatosplenomegaly. EXTREMITIES: Without overt digital clubbing or cyanosis. There was no pedal edema. She had spontaneous movements to all 4 extremities and withdrew to tactile stimuli. She had mild mental retardation features/fascies. NEUROLOGIC: Pupils were equal, round, about 3 mm, sluggishly reactive to light. Extraocular muscle movements could not be assessed. Again, she has spontaneous movements to all 4 extremities. She had contacted to the left upper extremity that was present on arrival. SKIN: Normal turgor without overt cellulitis or rash. LABORATORY DATA: From my review are as follows: White cell count at presentation 26,700 with a hemoglobin of 8.1, hematocrit of 37.3 and platelet count of 377. No band forms on the manual differential. INR 1.95. Initial ABG showed a pH of 6.89 with a pO2 of 236, pCO2 was not reported. This was on 100% FiO2. Most recent gas showed a pH of 7.25, pCO2 was not reported with a pO2 of 156 on 50% FiO2 and the above-mentioned ventilator settings. Serum sodium at presentation was 118, potassium 9.0, chloride 65, bicarbonate 7, BUN 53, creatinine 2.1, glucose was 2196, calcium 12.5. AST 3900. ALT 1034. Albumin 2.8. Urinalysis showed large blood, negative for leukocyte esterase and nitrites. Urine drug screen was presumptive negative. Drugs of abuse panel otherwise was negative. Blood cultures 2 sets, tracheal aspirate, no growth to date. A CT scan of the head was done. I have reviewed the radiologist's interpretation. It shows no acute intracranial abnormality. A chest x-ray has been reviewed. Endotracheal tube tip is at the lower level of the clavicular heads. There is an infiltrate in the left lung that may be consistent with an aspiration pneumonia/pneumonitis. Otherwise, no overt cardiomegaly or pneumothorax. ASSESSMENT: 1. Acute toxic metabolic encephalopathy. 2. Diabetic ketoacidosis. 3. Severe sepsis with shock. 4. Possible aspiration pneumonia. 5. History of polysubstance abuse. 6. Leukocytosis. 7. Elevated serum transaminases, possible shock liver. 8. Hyponatremia related to her severe hyperglycemia. 9. Anemia that is macrocytic. 10. History of seizure disorder. 11. Severe metabolic acidosis. 12. Acute kidney injury, possibly on chronic. PLAN: We will continue to hyperventilate her at the current ventilator settings. We will get another arterial blood gas. I will be sending her down to the lab to see if we can get a pCO2 on this particular gas. Ventilator adjustments will be done as necessary. We will continue to wean vasopressors keeping the mean arterial pressure greater than or equal to about 65 mmHg. She will continue on the DKA protocol. Continue on IV insulin therapy at this point in time until her anion gap closes, it is down for 56 to about 33 at this point. I have given her a dose of Ativan and it seems to have stopped the movements we were noticing, could well be seizures. We will car changer to a Versed drip. I will also do a fentanyl drip with baseline history of chronic back pain in the short term. We will get a PICC line and pull the right femoral line that is currently in place. I will schedule bronchodilator treatments. I will begin her on Keppra 500 mg IV b.i.d. and correct it as necessary for her renal function, which is beginning to improve. Free water flushes will be done via the feeding tube for hyponatremia that is 158 at this point. I will do 300 mL q. 4 hours. She is currently on, I believe, Zosyn. We will broaden the antibiotics empirically. I will put her on Flagyl. I will give her Zithromax and also cefepime, but we will also get an ID consult. I will get a CRP and procalcitonin level and along with lactic acid levels use to aid clinical decision making/antibiotic de-escalation. She is appropriately on GI prophylaxis. She will be placed on DVT prophylaxis. Nephrology evaluation will be at the behest of the attending physician. We will continue to trend the cardiac enzymes and in particular we will order a stat Tylenol level as well as aspirin levels just to make sure that we are not dealing with a drug overdose here. Flu and pneumonia vaccination will be addressed per protocol. I have taken the time to explain the care plan to her mom. We will follow along. Thank you very much for the consult, Dr. Swanson. We will follow along and make further recommendations as the picture progresses/becomes clearer. She is critically ill on life-sustaining interventions including the ventilator as well as vasopressors at very high risk of . At this time, I spent about 40-45 minutes of critical care time without overlap and excluding any procedural time that may be necessary. We will follow her serially during the day and make adjustments in her care as necessary. JOB# [id number] [facility]
[2019-03-31 04:10] LABS: Hemoglobin 6.1 gm/dl (10.1-14.3); Red Blood Count 1.89 M/mm3 (3.65-5.03)
[2019-03-31 04:12] LABS: Hematocrit 18.2 % (30.3-42.9); Mean Corpuscular Volume 96 fl (79-97)
[2019-03-31 04:13] LABS: Mean Corpuscular HGB Conc 34 % (30-34); Platelet Count 89 K/mm3 (140-440); Red Cell Distribution Width 17.7 % (13.2-15.2)
[2019-03-31] MEDS: Vasostrict 20 UNIT in NACL 0.9% 100 ML IV SCH ×2 (04:24→17:10)
[2019-03-31 04:27] LABS: ABG Base Excess -3.1 mmol/L (-2.0-3.0); ABG HCO3 19.5 mmol/L (20.0-26.0); ABG Methemoglobin 0.6 % (0.0-1.5); ABG Oxygen Saturation 99.2 % (95.0-99.0); ABG PCO2 24.1 mm Hg; ABG PH 7.525 pH Units (7.350-7.450)
[2019-03-31] MEDS: ARTIFICIAL TEARS OPHTH OINT OU PRN (04:28)
[2019-03-31 04:34] LABS: BUN/Creatinine Ratio 50; Blood Urea Nitrogen 35 mg/dL (7-17); Calcium 7.1 mg/dL (8.4-10.2); Hemolysis Index 6
--- NOTE | 2019-03-31 04:48 | XRay Report ---
CHEST 1 VIEW 0207 INDICATION / CLINICAL INFORMATION: follow up respiratory failure. COMPARISON: 03/29/2019 FINDINGS: SUPPORT DEVICES: Endotracheal tube appears unchanged. Nasogastric tube now extends well into the stom ach. HEART / MEDIASTINUM: Stable LUNGS / PLEURA: Infiltrate and atelectasis in the left base have noticeably improved. No pneumothorax . ADDITIONAL FINDINGS: No significant additional findings. IMPRESSION: Improvement on the left Signer Name: Jair Woo MD Signed: 03/31/2019 4:44 AM Workstation Name: [id number]
[2019-03-31 04:56] LABS: Band Neutrophils # (Manual) 0.1 K/mm3; Monocytes % (Manual) 0 % (0.0-7.3); Total Cells Counted 100
[2019-03-31 04:57] LABS: Anisocytosis 1+; Platelet Estimate Consistent w Auto
[2019-03-31] MEDS ORDERED: NACL 0.9% 500 ML 500 ML IV ONE (05:12)
[2019-03-31] MEDS ORDERED: LASIX IV ONE ×2 (05:13→14:00)
[2019-03-31] MEDS: FLAGYL 500 MG/100 ML 500 MG/100 ML BAG IV SCH ×3 (06:03→21:13)
[2019-03-31 09:04] LABS: Iron 26 ug/dL (37-170); Total Iron Binding Capacity 193 mcg/dL (250-450)
[2019-03-31] MEDS: HEPARIN SUB-Q SCH (10:47)
[2019-03-31] MEDS: PEPCID IV SCH ×2 (10:47→21:13)
[2019-03-31] MEDS: SODIUM CHLORIDE FLUSH SYRINGE 10 ML IV SCH ×2 (10:48→21:13)
[2019-03-31] MEDS: KEPPRA 500 MG in D5W 100 ML IV SCH ×2 (11:07→21:26)
[2019-03-31 11:37] LABS: BUN/Creatinine Ratio 53; Blood Urea Nitrogen 37 mg/dL (7-17); Calcium 7.1 mg/dL (8.4-10.2); Hemolysis Index 17
[2019-03-31] MEDS: TYLENOL PO PRN (11:50)
[2019-03-31] MEDS ORDERED: NACL 0.9% 500 ML 500 ML ONE (12:40)
--- NOTE | 2019-03-31 13:25 | Progress Note ---
Assessment and Plan Acute respiratory failure - on vent, cont nebs, CC consulted Cardiac arrest s/p resuscitation - likely 2/2 severe hyperglycemia - order 2d echo DKA, severe - BG was >2200 on admission - cont insulin drip. cont iv fluid - monitor BG q1H Shock hypotensive vs sepsis - cont iv fluid, pressor support - follow Cx result, cont Vancomycin, Zosyn, - wean off pressor as tolerated Acute renal failure, likely vasomotor nephropathy - cont iv fluid, monitor BMP Hyperkalemia, resolved with fluid and insulin hypokalemia, replete as needed, monitor BMP Shock liver with elevated LFT and Coagulopathy - due to cardiac arrest and hypotension - cont to monitor Hypermagnesemia Hyperphosphatemia - cont to monitor, improved DVT Px, heparin The high probability of a clinically significant, sudden or life threatening deterioration of the [multiple] system(s) required my full and direct attention, intervention and personal management. The aggregate critical care time was [35] minutes. This time is in addition to time spent performing reported procedures but includes the following: [x] Data Review and interpretation [x] Patient assessment and monitoring of vital signs [x] Documentation [x] Medication orders and management Subjective Date of service: 03/31/19 Interval history: Patient seen and examined Patient remained intubated, on pressor no family members around discussed with RN at bedside with plan of care Objective - Constitutional Vitals: Vital Signs - 12hr 03/31/19 03/31/19 03/31/19 03:10 03:20 03:30 Temperature Pulse Rate 123 H 122 H 121 H Respiratory 30 H 30 H 30 H Rate Blood Pressure 120/74 124/76 124/79 O2 Sat by Pulse 100 100 100 Oximetry 03/31/19 03/31/19 03/31/19 03:40 03:45 03:50 Temperature 98.6 F Pulse Rate 121 H 122 H Respiratory 30 H 30 H Rate Blood Pressure 124/79 129/81 O2 Sat by Pulse 100 100 Oximetry 03/31/19 03/31/19 03/31/19 04:00 04:10 04:20 Temperature Pulse Rate 123 H 125 H 124 H Respiratory 30 H 30 H 30 H Rate Blood Pressure 129/79 129/79 129/79 O2 Sat by Pulse 100 100 100 Oximetry 03/31/19 03/31/19 03/31/19 04:23 04:30 04:40 Temperature Pulse Rate 124 H 123 H 122 H Respiratory 30 H 30 H Rate Blood Pressure 129/79 135/88 135/88 O2 Sat by Pulse 100 100 100 Oximetry 03/31/19 03/31/19 03/31/19 04:50 05:00 05:10 Temperature Pulse Rate 119 H 120 H 121 H Respiratory 30 H 30 H 30 H Rate Blood Pressure 124/78 136/84 136/84 O2 Sat by Pulse 100 100 100 Oximetry 03/31/19 03/31/19 03/31/19 05:20 05:30 05:40 Temperature Pulse Rate 121 H 122 H 130 H Respiratory 30 H 30 H 30 H Rate Blood Pressure 127/82 131/83 121/79 O2 Sat by Pulse 100 100 100 Oximetry 03/31/19 03/31/19 03/31/19 05:50 06:00 06:10 Temperature Pulse Rate 125 H 128 H 126 H Respiratory 30 H 30 H 30 H Rate Blood Pressure 120/79 119/83 119/83 O2 Sat by Pulse 100 100 100 Oximetry 03/31/19 03/31/19 03/31/19 06:20 06:30 06:40 Temperature Pulse Rate 127 H 127 H 130 H Respiratory 30 H 30 H 24 Rate Blood Pressure 118/74 123/80 123/80 O2 Sat by Pulse 100 100 100 Oximetry 03/31/19 03/31/19 03/31/19 06:50 07:00 07:10 Temperature Pulse Rate 130 H 132 H 135 H Respiratory 24 25 H 24 Rate Blood Pressure 115/70 121/77 121/77 O2 Sat by Pulse 100 100 100 Oximetry 03/31/19 03/31/19 03/31/19 07:20 07:30 07:40 Temperature Pulse Rate 135 H 142 H 137 H Respiratory 24 24 24 Rate Blood Pressure 123/77 130/80 130/80 O2 Sat by Pulse 100 100 100 Oximetry 03/31/19 03/31/19 03/31/19 07:46 07:50 08:00 Temperature 101.6 F H Pulse Rate 135 H 137 H 139 H Respiratory 24 24 Rate Blood Pressure 137/81 137/81 119/75 O2 Sat by Pulse 100 100 100 Oximetry 03/31/19 03/31/19 03/31/19 08:10 08:20 08:30 Temperature Pulse Rate 133 H 134 H 131 H Respiratory 25 H 23 24 Rate Blood Pressure 119/75 117/74 113/66 O2 Sat by Pulse 100 100 100 Oximetry 03/31/19 03/31/19 03/31/19 08:40 08:50 09:00 Temperature Pulse Rate 134 H 136 H 132 H Respiratory 22 24 24 Rate Blood Pressure 113/66 121/79 116/74 O2 Sat by Pulse 100 100 100 Oximetry 03/31/19 03/31/19 03/31/19 09:10 09:20 09:30 Temperature Pulse Rate 131 H 136 H 135 H Respiratory 16 24 25 H Rate Blood Pressure 116/74 118/72 120/73 O2 Sat by Pulse 100 100 100 Oximetry 03/31/19 03/31/19 03/31/19 09:40 09:50 10:00 Temperature Pulse Rate 133 H 133 H 134 H Respiratory 24 24 24 Rate Blood Pressure 120/73 115/68 121/78 O2 Sat by Pulse 100 100 100 Oximetry 03/31/19 03/31/19 03/31/19 10:10 10:20 10:30 Temperature Pulse Rate 131 H 135 H 133 H Respiratory 24 24 24 Rate Blood Pressure 121/78 119/71 120/76 O2 Sat by Pulse 100 100 100 Oximetry 03/31/19 03/31/19 03/31/19 10:40 10:50 11:00 Temperature Pulse Rate 134 H 138 H 140 H Respiratory 24 23 18 Rate Blood Pressure 119/71 127/79 128/83 O2 Sat by Pulse 100 100 100 Oximetry 03/31/19 03/31/19 03/31/19 11:10 11:20 11:30 Temperature Pulse Rate 147 H 139 H 133 H Respiratory 24 24 24 Rate Blood Pressure 120/76 125/78 118/74 O2 Sat by Pulse 100 100 100 Oximetry 03/31/19 03/31/19 03/31/19 11:40 11:50 12:00 Temperature Pulse Rate 140 H 132 H 131 H Respiratory 17 24 24 Rate Blood Pressure 128/83 120/76 114/69 O2 Sat by Pulse 100 100 100 Oximetry 03/31/19 03/31/19 03/31/19 12:10 12:20 12:30 Temperature Pulse Rate 145 H 136 H 140 H Respiratory 24 23 24 Rate Blood Pressure 114/69 123/76 132/81 O2 Sat by Pulse 100 100 100 Oximetry 03/31/19 03/31/19 03/31/19 12:40 12:55 13:00 Temperature 100.2 F H 100.7 F H Pulse Rate 130 H 128 H 127 H Respiratory 24 24 24 Rate Blood Pressure 132/81 113/72 115/71 O2 Sat by Pulse 100 100 100 Oximetry General appearance: Present: disheveled, other (intubated, sedated) - EENT Eyes: PERRL, EOM intact ENT: hearing intact, clear oral mucosa Ears: bilateral: normal - Neck Neck: no masses or JVD, no carotid bruits - Respiratory Respiratory effort: other (on mechanical ventilation) Respiratory: bilateral: CTA - Cardiovascular Rhythm: other (tachycardic) Heart Sounds: Present: S1 & S2. Absent: gallop, rub Extremities: pulses intact, No edema, normal color - Gastrointestinal General gastrointestinal: Present: soft, non-distended, normal bowel sounds - Integumentary Integumentary: clear, warm, dry - Musculoskeletal Musculoskeletal: other (no joint swelling) - Neurologic Neurologic: other (unable to assess) - Psychiatric Psychiatric: other (unable to assess) - Labs CBC & Chem 7: 04/01/19 09:50 04/01/19 10:10 Labs: Abnormal lab results 03/30/19 03/30/19 03/30/19 Range/Units 03:30 10:38 11:08 RBC (3.65-5.03) M/mm3 Hgb (10.1-14.3) gm/dl Hct (30.3-42.9) % RDW (13.2-15.2) % Plt Count (140-440) K/mm3 Seg Neuts % (Manual) (40.0-70.0) % Lymphocytes % (Manual) (13.4-35.0) % Nucleated RBC % (0.0-0.9) % Lymphocytes # (Manual) (1.2-5.4) K/mm3 PT (12.2-14.9) Sec. INR (0.87-1.13) ABG pH (7.350-7.450) pH Units ABG pO2 (80.0-90.0) mm Hg ABG HCO3 (20.0-26.0) mmol/L ABG O2 Saturation (95.0-99.0) % ABG Base Excess (-2.0-3.0) mmol/L ABG Hemoglobin (12.0-16.0) gm/dl Sodium (137-145) mmol/L Potassium (3.6-5.0) mmol/L Chloride (98-107) mmol/L Carbon Dioxide (22-30) mmol/L BUN (7-17) mg/dL Glucose (65-100) mg/dL POC Glucose 380 H 263 H (70-105) Lactic Acid (0.7-2.0) mmol/L Calcium (8.4-10.2) mg/dL Iron (37-170) ug/dL TIBC (250-450) mcg/dL C-Reactive Protein (0.00-1.30) mg/dL Vitamin B12 (211-911) pg/mL Salicylates (2.8-20.0) mg/dL Acetaminophen (10.0-30.0) ug/mL Crossmatch See Detail 03/30/19 03/30/19 03/30/19 Range/Units 12:25 12:57 12:57 RBC (3.65-5.03) M/mm3 Hgb (10.1-14.3) gm/dl Hct (30.3-42.9) % RDW (13.2-15.2) % Plt Count (140-440) K/mm3 Seg Neuts % (Manual) (40.0-70.0) % Lymphocytes % (Manual) (13.4-35.0) % Nucleated RBC % (0.0-0.9) % Lymphocytes # (Manual) (1.2-5.4) K/mm3 PT 21.0 H (12.2-14.9) Sec. INR 1.86 H (0.87-1.13) ABG pH (7.350-7.450) pH Units ABG pO2 (80.0-90.0) mm Hg ABG HCO3 (20.0-26.0) mmol/L ABG O2 Saturation (95.0-99.0) % ABG Base Excess (-2.0-3.0) mmol/L ABG Hemoglobin (12.0-16.0) gm/dl Sodium 156 H (137-145) mmol/L Potassium 3.2 L (3.6-5.0) mmol/L Chloride 116.4 H (98-107) mmol/L Carbon Dioxide 21 L (22-30) mmol/L BUN 37 H (7-17) mg/dL Glucose 162 H (65-100) mg/dL POC Glucose 196 H (70-105) Lactic Acid (0.7-2.0) mmol/L Calcium 7.2 L (8.4-10.2) mg/dL Iron (37-170) ug/dL TIBC (250-450) mcg/dL C-Reactive Protein (0.00-1.30) mg/dL Vitamin B12 (211-911) pg/mL Salicylates (2.8-20.0) mg/dL Acetaminophen (10.0-30.0) ug/mL Crossmatch 03/30/19 03/30/19 03/30/19 Range/Units 12:57 12:57 13:23 RBC (3.65-5.03) M/mm3 Hgb (10.1-14.3) gm/dl Hct (30.3-42.9) % RDW (13.2-15.2) % Plt Count (140-440) K/mm3 Seg Neuts % (Manual) (40.0-70.0) % Lymphocytes % (Manual) (13.4-35.0) % Nucleated RBC % (0.0-0.9) % Lymphocytes # (Manual) (1.2-5.4) K/mm3 PT (12.2-14.9) Sec. INR (0.87-1.13) ABG pH (7.350-7.450) pH Units ABG pO2 (80.0-90.0) mm Hg ABG HCO3 (20.0-26.0) mmol/L ABG O2 Saturation (95.0-99.0) % ABG Base Excess (-2.0-3.0) mmol/L ABG Hemoglobin (12.0-16.0) gm/dl Sodium (137-145) mmol/L Potassium (3.6-5.0) mmol/L Chloride (98-107) mmol/L Carbon Dioxide (22-30) mmol/L BUN (7-17) mg/dL Glucose (65-100) mg/dL POC Glucose 176 H (70-105) Lactic Acid 9.00 H* (0.7-2.0) mmol/L Calcium (8.4-10.2) mg/dL Iron (37-170) ug/dL TIBC (250-450) mcg/dL C-Reactive Protein 2.40 H (0.00-1.30) mg/dL Vitamin B12 (211-911) pg/mL Salicylates (2.8-20.0) mg/dL Acetaminophen (10.0-30.0) ug/mL Crossmatch 03/30/19 03/30/19 03/30/19 Range/Units 14:47 16:11 17:11 RBC (3.65-5.03) M/mm3 Hgb (10.1-14.3) gm/dl Hct (30.3-42.9) % RDW (13.2-15.2) % Plt Count (140-440) K/mm3 Seg Neuts % (Manual) (40.0-70.0) % Lymphocytes % (Manual) (13.4-35.0) % Nucleated RBC % (0.0-0.9) % Lymphocytes # (Manual) (1.2-5.4) K/mm3 PT (12.2-14.9) Sec. INR (0.87-1.13) ABG pH (7.350-7.450) pH Units ABG pO2 (80.0-90.0) mm Hg ABG HCO3 (20.0-26.0) mmol/L ABG O2 Saturation (95.0-99.0) % ABG Base Excess (-2.0-3.0) mmol/L ABG Hemoglobin (12.0-16.0) gm/dl Sodium (137-145) mmol/L Potassium (3.6-5.0) mmol/L Chloride (98-107) mmol/L Carbon Dioxide (22-30) mmol/L BUN (7-17) mg/dL Glucose (65-100) mg/dL POC Glucose 245 H 181 H 167 H (70-105) Lactic Acid (0.7-2.0) mmol/L Calcium (8.4-10.2) mg/dL Iron (37-170) ug/dL TIBC (250-450) mcg/dL C-Reactive Protein (0.00-1.30) mg/dL Vitamin B12 (211-911) pg/mL Salicylates (2.8-20.0) mg/dL Acetaminophen (10.0-30.0) ug/mL Crossmatch 03/30/19 03/30/19 03/30/19 Range/Units 17:46 18:59 21:31 RBC (3.65-5.03) M/mm3 Hgb (10.1-14.3) gm/dl Hct (30.3-42.9) % RDW (13.2-15.2) % Plt Count (140-440) K/mm3 Seg Neuts % (Manual) (40.0-70.0) % Lymphocytes % (Manual) (13.4-35.0) % Nucleated RBC % (0.0-0.9) % Lymphocytes # (Manual) (1.2-5.4) K/mm3 PT (12.2-14.9) Sec. INR (0.87-1.13) ABG pH (7.350-7.450) pH Units ABG pO2 (80.0-90.0) mm Hg ABG HCO3 (20.0-26.0) mmol/L ABG O2 Saturation (95.0-99.0) % ABG Base Excess (-2.0-3.0) mmol/L ABG Hemoglobin (12.0-16.0) gm/dl Sodium (137-145) mmol/L Potassium (3.6-5.0) mmol/L Chloride (98-107) mmol/L Carbon Dioxide (22-30) mmol/L BUN (7-17) mg/dL Glucose (65-100) mg/dL POC Glucose 125 H 140 H 166 H (70-105) Lactic Acid (0.7-2.0) mmol/L Calcium (8.4-10.2) mg/dL Iron (37-170) ug/dL TIBC (250-450) mcg/dL C-Reactive Protein (0.00-1.30) mg/dL Vitamin B12 (211-911) pg/mL Salicylates (2.8-20.0) mg/dL Acetaminophen (10.0-30.0) ug/mL Crossmatch 03/30/19 03/30/19 03/30/19 Range/Units 22:19 23:13 Unknown RBC (3.65-5.03) M/mm3 Hgb (10.1-14.3) gm/dl Hct (30.3-42.9) % RDW (13.2-15.2) % Plt Count (140-440) K/mm3 Seg Neuts % (Manual) (40.0-70.0) % Lymphocytes % (Manual) (13.4-35.0) % Nucleated RBC % (0.0-0.9) % Lymphocytes # (Manual) (1.2-5.4) K/mm3 PT (12.2-14.9) Sec. INR (0.87-1.13) ABG pH (7.350-7.450) pH Units ABG pO2 (80.0-90.0) mm Hg ABG HCO3 (20.0-26.0) mmol/L ABG O2 Saturation (95.0-99.0) % ABG Base Excess (-2.0-3.0) mmol/L ABG Hemoglobin (12.0-16.0) gm/dl Sodium 157 H (137-145) mmol/L Potassium 3.3 L (3.6-5.0) mmol/L Chloride 117.9 H (98-107) mmol/L Carbon Dioxide 20 L (22-30) mmol/L BUN 36 H (7-17) mg/dL Glucose 150 H (65-100) mg/dL POC Glucose 115 H 112 H (70-105) Lactic Acid (0.7-2.0) mmol/L Calcium 7.2 L (8.4-10.2) mg/dL Iron (37-170) ug/dL TIBC (250-450) mcg/dL C-Reactive Protein (0.00-1.30) mg/dL Vitamin B12 (211-911) pg/mL Salicylates (2.8-20.0) mg/dL Acetaminophen (10.0-30.0) ug/mL Crossmatch 03/30/19 03/30/19 03/31/19 Range/Units Unknown Unknown 00:03 RBC (3.65-5.03) M/mm3 Hgb (10.1-14.3) gm/dl Hct (30.3-42.9) % RDW (13.2-15.2) % Plt Count (140-440) K/mm3 Seg Neuts % (Manual) (40.0-70.0) % Lymphocytes % (Manual) (13.4-35.0) % Nucleated RBC % (0.0-0.9) % Lymphocytes # (Manual) (1.2-5.4) K/mm3 PT (12.2-14.9) Sec. INR (0.87-1.13) ABG pH (7.350-7.450) pH Units ABG pO2 (80.0-90.0) mm Hg ABG HCO3 (20.0-26.0) mmol/L ABG O2 Saturation (95.0-99.0) % ABG Base Excess (-2.0-3.0) mmol/L ABG Hemoglobin (12.0-16.0) gm/dl Sodium (137-145) mmol/L Potassium (3.6-5.0) mmol/L Chloride (98-107) mmol/L Carbon Dioxide (22-30) mmol/L BUN (7-17) mg/dL Glucose (65-100) mg/dL POC Glucose 188 H (70-105) Lactic Acid (0.7-2.0) mmol/L Calcium (8.4-10.2) mg/dL Iron (37-170) ug/dL TIBC (250-450) mcg/dL C-Reactive Protein (0.00-1.30) mg/dL Vitamin B12 (211-911) pg/mL Salicylates 0.8 L (2.8-20.0) mg/dL Acetaminophen < 5.0 L (10.0-30.0) ug/mL Crossmatch 03/31/19 03/31/19 03/31/19 Range/Units 01:18 03:07 03:50 RBC (3.65-5.03) M/mm3 Hgb (10.1-14.3) gm/dl Hct (30.3-42.9) % RDW (13.2-15.2) % Plt Count (140-440) K/mm3 Seg Neuts % (Manual) (40.0-70.0) % Lymphocytes % (Manual) (13.4-35.0) % Nucleated RBC % (0.0-0.9) % Lymphocytes # (Manual) (1.2-5.4) K/mm3 PT (12.2-14.9) Sec. INR (0.87-1.13) ABG pH 7.525 H (7.350-7.450) pH Units ABG pO2 178.0 H (80.0-90.0) mm Hg ABG HCO3 19.5 L (20.0-26.0) mmol/L ABG O2 Saturation 99.2 H (95.0-99.0) % ABG Base Excess -3.1 L (-2.0-3.0) mmol/L ABG Hemoglobin 5.8 L (12.0-16.0) gm/dl Sodium (137-145) mmol/L Potassium (3.6-5.0) mmol/L Chloride (98-107) mmol/L Carbon Dioxide (22-30) mmol/L BUN (7-17) mg/dL Glucose (65-100) mg/dL POC Glucose 114 H 107 H (70-105) Lactic Acid (0.7-2.0) mmol/L Calcium (8.4-10.2) mg/dL Iron (37-170) ug/dL TIBC (250-450) mcg/dL C-Reactive Protein (0.00-1.30) mg/dL Vitamin B12 (211-911) pg/mL Salicylates (2.8-20.0) mg/dL Acetaminophen (10.0-30.0) ug/mL Crossmatch 03/31/19 03/31/19 03/31/19 Range/Units 03:51 03:51 04:05 RBC 1.89 L (3.65-5.03) M/mm3 Hgb 6.1 L (10.1-14.3) gm/dl Hct 18.2 L* (30.3-42.9) % RDW 17.7 H (13.2-15.2) % Plt Count 89 L (140-440) K/mm3 Seg Neuts % (Manual) 86.0 H (40.0-70.0) % Lymphocytes % (Manual) 10.0 L (13.4-35.0) % Nucleated RBC % 1.0 H (0.0-0.9) % Lymphocytes # (Manual) 0.7 L (1.2-5.4) K/mm3 PT (12.2-14.9) Sec. INR (0.87-1.13) ABG pH (7.350-7.450) pH Units ABG pO2 (80.0-90.0) mm Hg ABG HCO3 (20.0-26.0) mmol/L ABG O2 Saturation (95.0-99.0) % ABG Base Excess (-2.0-3.0) mmol/L ABG Hemoglobin (12.0-16.0) gm/dl Sodium 151 H (137-145) mmol/L Potassium 3.2 L (3.6-5.0) mmol/L Chloride 119.4 H (98-107) mmol/L Carbon Dioxide 17 L (22-30) mmol/L BUN 35 H (7-17) mg/dL Glucose 139 H (65-100) mg/dL POC Glucose 153 H (70-105) Lactic Acid (0.7-2.0) mmol/L Calcium 7.1 L (8.4-10.2) mg/dL Iron (37-170) ug/dL TIBC (250-450) mcg/dL C-Reactive Protein (0.00-1.30) mg/dL Vitamin B12 (211-911) pg/mL Salicylates (2.8-20.0) mg/dL Acetaminophen (10.0-30.0) ug/mL Crossmatch 03/31/19 03/31/19 03/31/19 Range/Units 05:05 05:35 06:23 RBC (3.65-5.03) M/mm3 Hgb (10.1-14.3) gm/dl Hct (30.3-42.9) % RDW (13.2-15.2) % Plt Count (140-440) K/mm3 Seg Neuts % (Manual) (40.0-70.0) % Lymphocytes % (Manual) (13.4-35.0) % Nucleated RBC % (0.0-0.9) % Lymphocytes # (Manual) (1.2-5.4) K/mm3 PT (12.2-14.9) Sec. INR (0.87-1.13) ABG pH (7.350-7.450) pH Units ABG pO2 (80.0-90.0) mm Hg ABG HCO3 (20.0-26.0) mmol/L ABG O2 Saturation (95.0-99.0) % ABG Base Excess (-2.0-3.0) mmol/L ABG Hemoglobin (12.0-16.0) gm/dl Sodium (137-145) mmol/L Potassium (3.6-5.0) mmol/L Chloride (98-107) mmol/L Carbon Dioxide (22-30) mmol/L BUN (7-17) mg/dL Glucose (65-100) mg/dL POC Glucose 176 H 133 H (70-105) Lactic Acid 3.20 H* (0.7-2.0) mmol/L Calcium (8.4-10.2) mg/dL Iron (37-170) ug/dL TIBC (250-450) mcg/dL C-Reactive Protein (0.00-1.30) mg/dL Vitamin B12 (211-911) pg/mL Salicylates (2.8-20.0) mg/dL Acetaminophen (10.0-30.0) ug/mL Crossmatch 03/31/19 03/31/19 03/31/19 Range/Units 07:50 07:51 08:20 RBC (3.65-5.03) M/mm3 Hgb (10.1-14.3) gm/dl Hct (30.3-42.9) % RDW (13.2-15.2) % Plt Count (140-440) K/mm3 Seg Neuts % (Manual) (40.0-70.0) % Lymphocytes % (Manual) (13.4-35.0) % Nucleated RBC % (0.0-0.9) % Lymphocytes # (Manual) (1.2-5.4) K/mm3 PT (12.2-14.9) Sec. INR (0.87-1.13) ABG pH (7.350-7.450) pH Units ABG pO2 (80.0-90.0) mm Hg ABG HCO3 (20.0-26.0) mmol/L ABG O2 Saturation (95.0-99.0) % ABG Base Excess (-2.0-3.0) mmol/L ABG Hemoglobin (12.0-16.0) gm/dl Sodium (137-145) mmol/L Potassium (3.6-5.0) mmol/L Chloride (98-107) mmol/L Carbon Dioxide (22-30) mmol/L BUN (7-17) mg/dL Glucose (65-100) mg/dL POC Glucose 135 H (70-105) Lactic Acid 3.30 H* (0.7-2.0) mmol/L Calcium (8.4-10.2) mg/dL Iron 26 L (37-170) ug/dL TIBC 193 L (250-450) mcg/dL C-Reactive Protein (0.00-1.30) mg/dL Vitamin B12 (211-911) pg/mL Salicylates (2.8-20.0) mg/dL Acetaminophen (10.0-30.0) ug/mL Crossmatch 03/31/19 03/31/19 03/31/19 Range/Units 08:20 08:20 09:06 RBC (3.65-5.03) M/mm3 Hgb (10.1-14.3) gm/dl Hct (30.3-42.9) % RDW (13.2-15.2) % Plt Count (140-440) K/mm3 Seg Neuts % (Manual) (40.0-70.0) % Lymphocytes % (Manual) (13.4-35.0) % Nucleated RBC % (0.0-0.9) % Lymphocytes # (Manual) (1.2-5.4) K/mm3 PT (12.2-14.9) Sec. INR (0.87-1.13) ABG pH (7.350-7.450) pH Units ABG pO2 (80.0-90.0) mm Hg ABG HCO3 (20.0-26.0) mmol/L ABG O2 Saturation (95.0-99.0) % ABG Base Excess (-2.0-3.0) mmol/L ABG Hemoglobin (12.0-16.0) gm/dl Sodium 153 H (137-145) mmol/L Potassium 3.0 L (3.6-5.0) mmol/L Chloride 118.9 H (98-107) mmol/L Carbon Dioxide 18 L (22-30) mmol/L BUN 37 H (7-17) mg/dL Glucose 132 H (65-100) mg/dL POC Glucose 145 H (70-105) Lactic Acid (0.7-2.0) mmol/L Calcium 7.1 L (8.4-10.2) mg/dL Iron (37-170) ug/dL TIBC (250-450) mcg/dL C-Reactive Protein (0.00-1.30) mg/dL Vitamin B12 > 2000 H (211-911) pg/mL Salicylates (2.8-20.0) mg/dL Acetaminophen (10.0-30.0) ug/mL Crossmatch 03/31/19 03/31/19 03/31/19 Range/Units 10:47 11:49 13:04 RBC (3.65-5.03) M/mm3 Hgb (10.1-14.3) gm/dl Hct (30.3-42.9) % RDW (13.2-15.2) % Plt Count (140-440) K/mm3 Seg Neuts % (Manual) (40.0-70.0) % Lymphocytes % (Manual) (13.4-35.0) % Nucleated RBC % (0.0-0.9) % Lymphocytes # (Manual) (1.2-5.4) K/mm3 PT (12.2-14.9) Sec. INR (0.87-1.13) ABG pH (7.350-7.450) pH Units ABG pO2 (80.0-90.0) mm Hg ABG HCO3 (20.0-26.0) mmol/L ABG O2 Saturation (95.0-99.0) % ABG Base Excess (-2.0-3.0) mmol/L ABG Hemoglobin (12.0-16.0) gm/dl Sodium (137-145) mmol/L Potassium (3.6-5.0) mmol/L Chloride (98-107) mmol/L Carbon Dioxide (22-30) mmol/L BUN (7-17) mg/dL Glucose (65-100) mg/dL POC Glucose 153 H 174 H 214 H (70-105) Lactic Acid (0.7-2.0) mmol/L Calcium (8.4-10.2) mg/dL Iron (37-170) ug/dL TIBC (250-450) mcg/dL C-Reactive Protein (0.00-1.30) mg/dL Vitamin B12 (211-911) pg/mL Salicylates (2.8-20.0) mg/dL Acetaminophen (10.0-30.0) ug/mL Crossmatch - Imaging and cardiology Chest x-ray: report reviewed CT Scan - head: report reviewed
[2019-03-31] MEDS: CEFEPIME/NS 2 GM/100 ML 2 GM/100 ML BAG IV SCH ×2 (13:47→21:13)
--- NOTE | 2019-03-31 14:35 | Progress Note ---
Assessment and Plan Acute toxic metabolic encephalopathy. Diabetic ketoacidosis. Severe sepsis with shock. Possible aspiration pneumonia. History of polysubstance abuse. Leukocytosis. Elevated serum transaminases, possible shock liver. Hyponatremia related to her severe hyperglycemia. Anemia that is macrocytic. History of seizure disorder. Severe metabolic acidosis. Acute kidney injury, possibly on chronic - transfuse 1 unit PRBC (consent obtained from mother) - stop heparin re: thrombocytopenia - send HIT assay - follow mental status closely and repeat CT brain tomorrow if no improvement / if clinical exam deteriorates - continue and de-escalate antiinfective's per ID recommendations - follow prn CRP & lactate levels to aid clinical decision making - continue daily SAT and SBT assessments as tolerated - continue IV insulin therapy per DKA protocol - begin enteral nutrition once off IV insulin - discontinue lew catheter - continue bronchodilators with pulmonary hygiene per RT - VAP bundle addressed - continue to wean supplemental O2 to keep O2 sats > 90% - VTE prophylaxis - Stress ulcer prophylaxis - continue accuchecks with glycemic control per SSI for target blood glucose 140-180 mg/dL - continue empiric antibiotics; de-escalate per ID rec's and based on clinical and microbiologic data - sedation target of RASS 0 to -1 - continue Keppra for seizures - continue mobility protocols / off loading for pressure ulcer prevention - Critical care bundles addressed - continue Seizure precautions - fall precautions - neuro-checks per RN - continue other care per attending / other consultants CONDITION: CRITICAL PROGNOSIS: GUARDED TO GRAVE CODE STATUS: FULL CODE The high probability of a clinically significant, sudden or life threatening deterioration of the [Neurology Respiratory, Cardiovascular] system(s) required my full and direct attention, intervention and personal management. The aggregate critical care time was [35] minutes. This time is in addition to time spent performing reported procedures but includes the following: [x] Data Review and interpretation [x] Patient assessment and monitoring of vital signs [x] Documentation [x] Medication orders and management Subjective Date of service: 03/31/19 Principal diagnosis: Ac Hypoxemic Resp Failure; DKA; Severe sepsis with shock; ANGELICA Interval history: Patient is seen today for: Acute Hypoxemic Resp Failure; Ac toxic metabolic encephalopathy; DKA; Severe sepsis with shock; Possible aspiration pneumonia; History of polysubstance abuse; History of seizure disorder; Acute kidney injury, possibly on chronic Seen and examined at bedside; 24hour events reviewed; nursing and respiratory care staff consulted; no adverse overnight events reported to me; resting peacefully in bed; sedated; remains on Vasopressors but weaning; remains on IV insulin therapy; serum Hb down to 6.1 but no gross bleeding; no new issues otherwise Objective Vital Signs - 12hr 03/31/19 03/31/19 03/31/19 03:10 03:20 03:30 Temperature Pulse Rate 123 H 122 H 121 H Respiratory 30 H 30 H 30 H Rate Blood Pressure 120/74 124/76 124/79 O2 Sat by Pulse 100 100 100 Oximetry 03/31/19 03/31/19 03/31/19 03:40 03:45 03:50 Temperature 98.6 F Pulse Rate 121 H 122 H Respiratory 30 H 30 H Rate Blood Pressure 124/79 129/81 O2 Sat by Pulse 100 100 Oximetry 03/31/19 03/31/19 03/31/19 04:00 04:10 04:20 Temperature Pulse Rate 123 H 125 H 124 H Respiratory 30 H 30 H 30 H Rate Blood Pressure 129/79 129/79 129/79 O2 Sat by Pulse 100 100 100 Oximetry 03/31/19 03/31/19 03/31/19 04:23 04:30 04:40 Temperature Pulse Rate 124 H 123 H 122 H Respiratory 30 H 30 H Rate Blood Pressure 129/79 135/88 135/88 O2 Sat by Pulse 100 100 100 Oximetry 03/31/19 03/31/19 03/31/19 04:50 05:00 05:10 Temperature Pulse Rate 119 H 120 H 121 H Respiratory 30 H 30 H 30 H Rate Blood Pressure 124/78 136/84 136/84 O2 Sat by Pulse 100 100 100 Oximetry 03/31/19 03/31/19 03/31/19 05:20 05:30 05:40 Temperature Pulse Rate 121 H 122 H 130 H Respiratory 30 H 30 H 30 H Rate Blood Pressure 127/82 131/83 121/79 O2 Sat by Pulse 100 100 100 Oximetry 03/31/19 03/31/19 03/31/19 05:50 06:00 06:10 Temperature Pulse Rate 125 H 128 H 126 H Respiratory 30 H 30 H 30 H Rate Blood Pressure 120/79 119/83 119/83 O2 Sat by Pulse 100 100 100 Oximetry 03/31/19 03/31/19 03/31/19 06:20 06:30 06:40 Temperature Pulse Rate 127 H 127 H 130 H Respiratory 30 H 30 H 24 Rate Blood Pressure 118/74 123/80 123/80 O2 Sat by Pulse 100 100 100 Oximetry 03/31/19 03/31/19 03/31/19 06:50 07:00 07:10 Temperature Pulse Rate 130 H 132 H 135 H Respiratory 24 25 H 24 Rate Blood Pressure 115/70 121/77 121/77 O2 Sat by Pulse 100 100 100 Oximetry 03/31/19 03/31/19 03/31/19 07:20 07:30 07:40 Temperature Pulse Rate 135 H 142 H 137 H Respiratory 24 24 24 Rate Blood Pressure 123/77 130/80 130/80 O2 Sat by Pulse 100 100 100 Oximetry 03/31/19 03/31/19 03/31/19 07:46 07:50 08:00 Temperature 101.6 F H Pulse Rate 135 H 137 H 139 H Respiratory 24 24 Rate Blood Pressure 137/81 137/81 119/75 O2 Sat by Pulse 100 100 100 Oximetry 03/31/19 03/31/19 03/31/19 08:10 08:20 08:30 Temperature Pulse Rate 133 H 134 H 131 H Respiratory 25 H 23 24 Rate Blood Pressure 119/75 117/74 113/66 O2 Sat by Pulse 100 100 100 Oximetry 03/31/19 03/31/19 03/31/19 08:40 08:50 09:00 Temperature Pulse Rate 134 H 136 H 132 H Respiratory 22 24 24 Rate Blood Pressure 113/66 121/79 116/74 O2 Sat by Pulse 100 100 100 Oximetry 03/31/19 03/31/19 03/31/19 09:10 09:20 09:30 Temperature Pulse Rate 131 H 136 H 135 H Respiratory 16 24 25 H Rate Blood Pressure 116/74 118/72 120/73 O2 Sat by Pulse 100 100 100 Oximetry 03/31/19 03/31/19 03/31/19 09:40 09:50 10:00 Temperature Pulse Rate 133 H 133 H 134 H Respiratory 24 24 24 Rate Blood Pressure 120/73 115/68 121/78 O2 Sat by Pulse 100 100 100 Oximetry 03/31/19 03/31/19 03/31/19 10:10 10:20 10:30 Temperature Pulse Rate 131 H 135 H 133 H Respiratory 24 24 24 Rate Blood Pressure 121/78 119/71 120/76 O2 Sat by Pulse 100 100 100 Oximetry 03/31/19 03/31/19 03/31/19 10:40 10:50 11:00 Temperature Pulse Rate 134 H 138 H 140 H Respiratory 24 23 18 Rate Blood Pressure 119/71 127/79 128/83 O2 Sat by Pulse 100 100 100 Oximetry 03/31/19 03/31/19 03/31/19 11:10 11:20 11:30 Temperature Pulse Rate 147 H 139 H 133 H Respiratory 24 24 24 Rate Blood Pressure 120/76 125/78 118/74 O2 Sat by Pulse 100 100 100 Oximetry 03/31/19 03/31/19 03/31/19 11:40 11:50 12:00 Temperature Pulse Rate 140 H 132 H 131 H Respiratory 17 24 24 Rate Blood Pressure 128/83 120/76 114/69 O2 Sat by Pulse 100 100 100 Oximetry 03/31/19 03/31/19 03/31/19 12:10 12:20 12:30 Temperature Pulse Rate 145 H 136 H 140 H Respiratory 24 23 24 Rate Blood Pressure 114/69 123/76 132/81 O2 Sat by Pulse 100 100 100 Oximetry 03/31/19 03/31/19 03/31/19 12:40 12:55 13:00 Temperature 100.2 F H 100.7 F H Pulse Rate 130 H 128 H 127 H Respiratory 24 24 24 Rate Blood Pressure 132/81 113/72 115/71 O2 Sat by Pulse 100 100 100 Oximetry 03/31/19 13:39 Temperature 101.5 F H Pulse Rate 125 H Respiratory 24 Rate Blood Pressure 111/75 O2 Sat by Pulse 100 Oximetry Constitutional: appears uncomfortable, other (young CF normocephalic and atraumatic on MVS) Eyes: non-icteric ENT: oropharynx moist, other (ETT 22-23 cm Jessi) Neck: supple, no lymphadenopathy, no JVD Effort: mildly labored Ascultation: Bilateral: rhonchi Percussion: Bilateral: not dull Cardiovascular: regular rate and rhythm, other (sinus tachycardia) Gastrointestinal: normoactive bowel sounds, soft, non-tender, non-distended Integumentary: normal Extremities: no cyanosis, pink and warm, pulses normal, no ischemia or petechiae, edema (trace to 1+) Neurologic: non-focal exam (grossly), other (Sedated) Psychiatric: other (unable to assess) CBC and BMP: 04/01/19 09:50 04/01/19 10:10 ABG, PT/INR, D-dimer: ABG POC ABG pH 7.251 (7.35-7.45) L 03/30/19 03:15 ABG pH 7.525 pH Units (7.350-7.450) H 03/31/19 03:50 ABG pCO2 24.1 mm Hg 03/31/19 03:50 POC ABG pO2 156 (80-105) H 03/30/19 03:15 ABG pO2 178.0 mm Hg (80.0-90.0) H 03/31/19 03:50 POC ABG HCO3 9.4 (22-26 mml/L) 03/30/19 03:15 POC ABG Total CO2 10 (23-27mmol/L) 03/30/19 03:15 POC ABG O2 Sat 99 03/30/19 03:15 ABG O2 Saturation 99.2 % (95.0-99.0) H 03/31/19 03:50 PT/INR, D-dimer PT 21.0 Sec. (12.2-14.9) H 03/30/19 12:57 INR 1.86 (0.87-1.13) H 03/30/19 12:57 Abnormal lab findings: Abnormal Labs 03/29/19 03/29/19 03/29/19 19:20 19:20 19:20 WBC 26.7 H RBC 2.52 L Hgb 8.1 L Hct MCV 148 H MCHC 22 L RDW 18.5 H Plt Count Seg Neuts % (Manual) 82.0 H Lymphocytes % (Manual) 7.0 L Nucleated RBC % Seg Neutrophils # Man 21.9 H Lymphocytes # (Manual) Monocytes # (Manual) 1.9 H PT 21.8 H INR 1.95 H APTT 74.5 H* POC ABG pH ABG pH POC ABG pO2 ABG pO2 ABG HCO3 ABG O2 Saturation ABG Base Excess ABG Hemoglobin VBG pH Oxyhemoglobin Sodium 118 L* Potassium 9.0 H* Chloride 64.5 L Carbon Dioxide 7 L* BUN 53 H Creatinine 2.1 H Glucose 2196 H* POC Glucose Lactic Acid Calcium 12.4 H* Phosphorus Magnesium Iron TIBC AST 3900 H ALT 1034 H Alkaline Phosphatase 316 H Total Creatine Kinase CK-MB (CK-2) C-Reactive Protein Total Protein 5.1 L Albumin 2.8 L Vitamin B12 Salicylates Acetaminophen Crossmatch 03/29/19 03/29/19 03/29/19 19:47 20:59 22:45 WBC RBC Hgb Hct MCV MCHC RDW Plt Count Seg Neuts % (Manual) Lymphocytes % (Manual) Nucleated RBC % Seg Neutrophils # Man Lymphocytes # (Manual) Monocytes # (Manual) PT INR APTT POC ABG pH 6.892 L ABG pH POC ABG pO2 236 H ABG pO2 ABG HCO3 ABG O2 Saturation ABG Base Excess ABG Hemoglobin VBG pH 6.800 L* Oxyhemoglobin Sodium 132 L D Potassium 7.0 H* Chloride 84.3 L Carbon Dioxide 3 L* BUN 48 H Creatinine 1.8 H Glucose 1779 H* POC Glucose Lactic Acid Calcium Phosphorus Magnesium Iron TIBC AST ALT Alkaline Phosphatase Total Creatine Kinase CK-MB (CK-2) C-Reactive Protein Total Protein Albumin Vitamin B12 Salicylates Acetaminophen Crossmatch 03/29/19 03/29/19 03/29/19 22:45 22:45 Unknown WBC RBC Hgb Hct MCV MCHC RDW Plt Count Seg Neuts % (Manual) Lymphocytes % (Manual) Nucleated RBC % Seg Neutrophils # Man Lymphocytes # (Manual) Monocytes # (Manual) PT INR APTT POC ABG pH ABG pH POC ABG pO2 ABG pO2 ABG HCO3 ABG O2 Saturation ABG Base Excess ABG Hemoglobin VBG pH Oxyhemoglobin Sodium Potassium Chloride Carbon Dioxide BUN Creatinine Glucose POC Glucose Lactic Acid Calcium Phosphorus 21.70 H 19.30 H Magnesium 4.70 H 3.90 H Iron TIBC AST ALT Alkaline Phosphatase Total Creatine Kinase 363 H CK-MB (CK-2) C-Reactive Protein Total Protein Albumin Vitamin B12 Salicylates Acetaminophen Crossmatch 03/29/19 03/30/19 03/30/19 Unknown 00:11 00:11 WBC RBC Hgb Hct MCV MCHC RDW Plt Count Seg Neuts % (Manual) Lymphocytes % (Manual) Nucleated RBC % Seg Neutrophils # Man Lymphocytes # (Manual) Monocytes # (Manual) PT INR APTT POC ABG pH ABG pH POC ABG pO2 ABG pO2 ABG HCO3 ABG O2 Saturation ABG Base Excess ABG Hemoglobin VBG pH Oxyhemoglobin Sodium 122 L Potassium 7.9 H* 6.4 H* Chloride 75.3 L 89.7 L Carbon Dioxide 3 L* 12 L D BUN 52 H 46 H Creatinine 2.0 H 1.7 H Glucose 2043 H* 1591 H* POC Glucose Lactic Acid Calcium 7.8 L Phosphorus 10.90 H D Magnesium 3.10 H Iron TIBC AST ALT Alkaline Phosphatase Total Creatine Kinase CK-MB (CK-2) C-Reactive Protein Total Protein Albumin Vitamin B12 Salicylates Acetaminophen Crossmatch 03/30/19 03/30/19 03/30/19 02:14 02:14 03:15 WBC RBC Hgb Hct MCV MCHC RDW Plt Count Seg Neuts % (Manual) Lymphocytes % (Manual) Nucleated RBC % Seg Neutrophils # Man Lymphocytes # (Manual) Monocytes # (Manual) PT INR APTT POC ABG pH 7.251 L ABG pH POC ABG pO2 156 H ABG pO2 ABG HCO3 ABG O2 Saturation ABG Base Excess ABG Hemoglobin VBG pH Oxyhemoglobin Sodium Potassium Chloride Carbon Dioxide 9 L* BUN 45 H Creatinine 1.7 H Glucose 1155 H* POC Glucose Lactic Acid Calcium 7.9 L Phosphorus 5.30 H D Magnesium 2.90 H Iron TIBC AST ALT Alkaline Phosphatase Total Creatine Kinase CK-MB (CK-2) C-Reactive Protein Total Protein Albumin Vitamin B12 Salicylates Acetaminophen Crossmatch 03/30/19 03/30/19 03/30/19 03:30 04:23 05:26 WBC 18.0 H RBC 2.31 L Hgb 7.3 L Hct 23.8 L D MCV 103 H MCHC RDW 17.1 H Plt Count Seg Neuts % (Manual) 79.0 H Lymphocytes % (Manual) Nucleated RBC % Seg Neutrophils # Man 14.2 H Lymphocytes # (Manual) Monocytes # (Manual) PT INR APTT POC ABG pH ABG pH POC ABG pO2 ABG pO2 ABG HCO3 ABG O2 Saturation ABG Base Excess ABG Hemoglobin VBG pH Oxyhemoglobin Sodium Potassium Chloride Carbon Dioxide BUN Creatinine Glucose POC Glucose Lactic Acid Calcium Phosphorus Magnesium 2.60 H Iron TIBC AST ALT Alkaline Phosphatase Total Creatine Kinase 2465 H CK-MB (CK-2) 52.7 H C-Reactive Protein Total Protein Albumin Vitamin B12 Salicylates Acetaminophen Crossmatch See Detail 03/30/19 03/30/19 03/30/19 05:26 10:38 11:08 WBC RBC Hgb Hct MCV MCHC RDW Plt Count Seg Neuts % (Manual) Lymphocytes % (Manual) Nucleated RBC % Seg Neutrophils # Man Lymphocytes # (Manual) Monocytes # (Manual) PT INR APTT POC ABG pH ABG pH POC ABG pO2 ABG pO2 ABG HCO3 ABG O2 Saturation ABG Base Excess ABG Hemoglobin VBG pH Oxyhemoglobin Sodium 158 H D Potassium 3.5 L Chloride 109.3 H Carbon Dioxide 19 L D BUN 40 H Creatinine 1.5 H Glucose 760 H* POC Glucose 380 H 263 H Lactic Acid Calcium 7.3 L Phosphorus Magnesium Iron TIBC AST 17347 H ALT 2156 H Alkaline Phosphatase 271 H Total Creatine Kinase CK-MB (CK-2) C-Reactive Protein Total Protein 4.5 L Albumin 2.4 L Vitamin B12 Salicylates Acetaminophen Crossmatch 03/30/19 03/30/19 03/30/19 12:25 12:57 12:57 WBC RBC Hgb Hct MCV MCHC RDW Plt Count Seg Neuts % (Manual) Lymphocytes % (Manual) Nucleated RBC % Seg Neutrophils # Man Lymphocytes # (Manual) Monocytes # (Manual) PT 21.0 H INR 1.86 H APTT POC ABG pH ABG pH POC ABG pO2 ABG pO2 ABG HCO3 ABG O2 Saturation ABG Base Excess ABG Hemoglobin VBG pH Oxyhemoglobin Sodium 156 H Potassium 3.2 L Chloride 116.4 H Carbon Dioxide 21 L BUN 37 H Creatinine Glucose 162 H POC Glucose 196 H Lactic Acid Calcium 7.2 L Phosphorus Magnesium Iron TIBC AST ALT Alkaline Phosphatase Total Creatine Kinase CK-MB (CK-2) C-Reactive Protein Total Protein Albumin Vitamin B12 Salicylates Acetaminophen Crossmatch 03/30/19 03/30/19 03/30/19 12:57 12:57 13:23 WBC RBC Hgb Hct MCV MCHC RDW Plt Count Seg Neuts % (Manual) Lymphocytes % (Manual) Nucleated RBC % Seg Neutrophils # Man Lymphocytes # (Manual) Monocytes # (Manual) PT INR APTT POC ABG pH ABG pH POC ABG pO2 ABG pO2 ABG HCO3 ABG O2 Saturation ABG Base Excess ABG Hemoglobin VBG pH Oxyhemoglobin Sodium Potassium Chloride Carbon Dioxide BUN Creatinine Glucose POC Glucose 176 H Lactic Acid 9.00 H* Calcium Phosphorus Magnesium Iron TIBC AST ALT Alkaline Phosphatase Total Creatine Kinase CK-MB (CK-2) C-Reactive Protein 2.40 H Total Protein Albumin Vitamin B12 Salicylates Acetaminophen Crossmatch 03/30/19 03/30/19 03/30/19 14:47 16:11 17:11 WBC RBC Hgb Hct MCV MCHC RDW Plt Count Seg Neuts % (Manual) Lymphocytes % (Manual) Nucleated RBC % Seg Neutrophils # Man Lymphocytes # (Manual) Monocytes # (Manual) PT INR APTT POC ABG pH ABG pH POC ABG pO2 ABG pO2 ABG HCO3 ABG O2 Saturation ABG Base Excess ABG Hemoglobin VBG pH Oxyhemoglobin Sodium Potassium Chloride Carbon Dioxide BUN Creatinine Glucose POC Glucose 245 H 181 H 167 H Lactic Acid Calcium Phosphorus Magnesium Iron TIBC AST ALT Alkaline Phosphatase Total Creatine Kinase CK-MB (CK-2) C-Reactive Protein Total Protein Albumin Vitamin B12 Salicylates Acetaminophen Crossmatch 03/30/19 03/30/19 03/30/19 17:46 18:59 21:31 WBC RBC Hgb Hct MCV MCHC RDW Plt Count Seg Neuts % (Manual) Lymphocytes % (Manual) Nucleated RBC % Seg Neutrophils # Man Lymphocytes # (Manual) Monocytes # (Manual) PT INR APTT POC ABG pH ABG pH POC ABG pO2 ABG pO2 ABG HCO3 ABG O2 Saturation ABG Base Excess ABG Hemoglobin VBG pH Oxyhemoglobin Sodium Potassium Chloride Carbon Dioxide BUN Creatinine Glucose POC Glucose 125 H 140 H 166 H Lactic Acid Calcium Phosphorus Magnesium Iron TIBC AST ALT Alkaline Phosphatase Total Creatine Kinase CK-MB (CK-2) C-Reactive Protein Total Protein Albumin Vitamin B12 Salicylates Acetaminophen Crossmatch 03/30/19 03/30/19 03/30/19 22:19 23:13 Unknown WBC RBC Hgb Hct MCV MCHC RDW Plt Count Seg Neuts % (Manual) Lymphocytes % (Manual) Nucleated RBC % Seg Neutrophils # Man Lymphocytes # (Manual) Monocytes # (Manual) PT INR APTT POC ABG pH ABG pH POC ABG pO2 ABG pO2 ABG HCO3 ABG O2 Saturation ABG Base Excess ABG Hemoglobin VBG pH Oxyhemoglobin Sodium 157 H Potassium 3.3 L Chloride 117.9 H Carbon Dioxide 20 L BUN 36 H Creatinine Glucose 150 H POC Glucose 115 H 112 H Lactic Acid Calcium 7.2 L Phosphorus Magnesium Iron TIBC AST ALT Alkaline Phosphatase Total Creatine Kinase CK-MB (CK-2) C-Reactive Protein Total Protein Albumin Vitamin B12 Salicylates Acetaminophen Crossmatch 03/30/19 03/30/19 03/30/19 Unknown Unknown Unknown WBC RBC Hgb Hct MCV MCHC RDW Plt Count Seg Neuts % (Manual) Lymphocytes % (Manual) Nucleated RBC % Seg Neutrophils # Man Lymphocytes # (Manual) Monocytes # (Manual) PT INR APTT POC ABG pH ABG pH POC ABG pO2 ABG pO2 47.8 L ABG HCO3 18.8 L ABG O2 Saturation 83.8 L ABG Base Excess -5.4 L ABG Hemoglobin 6.8 L VBG pH Oxyhemoglobin 81.8 L Sodium Potassium Chloride Carbon Dioxide BUN Creatinine Glucose POC Glucose Lactic Acid Calcium Phosphorus Magnesium Iron TIBC AST ALT Alkaline Phosphatase Total Creatine Kinase CK-MB (CK-2) C-Reactive Protein Total Protein Albumin Vitamin B12 Salicylates 0.8 L Acetaminophen < 5.0 L Crossmatch 03/31/19 03/31/19 03/31/19 00:03 01:18 03:07 WBC RBC Hgb Hct MCV MCHC RDW Plt Count Seg Neuts % (Manual) Lymphocytes % (Manual) Nucleated RBC % Seg Neutrophils # Man Lymphocytes # (Manual) Monocytes # (Manual) PT INR APTT POC ABG pH ABG pH POC ABG pO2 ABG pO2 ABG HCO3 ABG O2 Saturation ABG Base Excess ABG Hemoglobin VBG pH Oxyhemoglobin Sodium Potassium Chloride Carbon Dioxide BUN Creatinine Glucose POC Glucose 188 H 114 H 107 H Lactic Acid Calcium Phosphorus Magnesium Iron TIBC AST ALT Alkaline Phosphatase Total Creatine Kinase CK-MB (CK-2) C-Reactive Protein Total Protein Albumin Vitamin B12 Salicylates Acetaminophen Crossmatch 03/31/19 03/31/19 03/31/19 03:50 03:51 03:51 WBC RBC 1.89 L Hgb 6.1 L Hct 18.2 L* MCV MCHC RDW 17.7 H Plt Count 89 L Seg Neuts % (Manual) 86.0 H Lymphocytes % (Manual) 10.0 L Nucleated RBC % 1.0 H Seg Neutrophils # Man Lymphocytes # (Manual) 0.7 L Monocytes # (Manual) PT INR APTT POC ABG pH ABG pH 7.525 H POC ABG pO2 ABG pO2 178.0 H ABG HCO3 19.5 L ABG O2 Saturation 99.2 H ABG Base Excess -3.1 L ABG Hemoglobin 5.8 L VBG pH Oxyhemoglobin Sodium 151 H Potassium 3.2 L Chloride 119.4 H Carbon Dioxide 17 L BUN 35 H Creatinine Glucose 139 H POC Glucose Lactic Acid Calcium 7.1 L Phosphorus Magnesium Iron TIBC AST ALT Alkaline Phosphatase Total Creatine Kinase CK-MB (CK-2) C-Reactive Protein Total Protein Albumin Vitamin B12 Salicylates Acetaminophen Crossmatch 03/31/19 03/31/19 03/31/19 04:05 05:05 05:35 WBC RBC Hgb Hct MCV MCHC RDW Plt Count Seg Neuts % (Manual) Lymphocytes % (Manual) Nucleated RBC % Seg Neutrophils # Man Lymphocytes # (Manual) Monocytes # (Manual) PT INR APTT POC ABG pH ABG pH POC ABG pO2 ABG pO2 ABG HCO3 ABG O2 Saturation ABG Base Excess ABG Hemoglobin VBG pH Oxyhemoglobin Sodium Potassium Chloride Carbon Dioxide BUN Creatinine Glucose POC Glucose 153 H 176 H Lactic Acid 3.20 H* Calcium Phosphorus Magnesium Iron TIBC AST ALT Alkaline Phosphatase Total Creatine Kinase CK-MB (CK-2) C-Reactive Protein Total Protein Albumin Vitamin B12 Salicylates Acetaminophen Crossmatch 03/31/19 03/31/19 03/31/19 06:23 07:50 07:51 WBC RBC Hgb Hct MCV MCHC RDW Plt Count Seg Neuts % (Manual) Lymphocytes % (Manual) Nucleated RBC % Seg Neutrophils # Man Lymphocytes # (Manual) Monocytes # (Manual) PT INR APTT POC ABG pH ABG pH POC ABG pO2 ABG pO2 ABG HCO3 ABG O2 Saturation ABG Base Excess ABG Hemoglobin VBG pH Oxyhemoglobin Sodium Potassium Chloride Carbon Dioxide BUN Creatinine Glucose POC Glucose 133 H 135 H Lactic Acid 3.30 H* Calcium Phosphorus Magnesium Iron TIBC AST ALT Alkaline Phosphatase Total Creatine Kinase CK-MB (CK-2) C-Reactive Protein Total Protein Albumin Vitamin B12 Salicylates Acetaminophen Crossmatch 03/31/19 03/31/19 03/31/19 08:20 08:20 08:20 WBC RBC Hgb Hct MCV MCHC RDW Plt Count Seg Neuts % (Manual) Lymphocytes % (Manual) Nucleated RBC % Seg Neutrophils # Man Lymphocytes # (Manual) Monocytes # (Manual) PT INR APTT POC ABG pH ABG pH POC ABG pO2 ABG pO2 ABG HCO3 ABG O2 Saturation ABG Base Excess ABG Hemoglobin VBG pH Oxyhemoglobin Sodium 153 H Potassium 3.0 L Chloride 118.9 H Carbon Dioxide 18 L BUN 37 H Creatinine Glucose 132 H POC Glucose Lactic Acid Calcium 7.1 L Phosphorus Magnesium Iron 26 L TIBC 193 L AST ALT Alkaline Phosphatase Total Creatine Kinase CK-MB (CK-2) C-Reactive Protein Total Protein Albumin Vitamin B12 > 2000 H Salicylates Acetaminophen Crossmatch 03/31/19 03/31/19 03/31/19 09:06 10:47 11:49 WBC RBC Hgb Hct MCV MCHC RDW Plt Count Seg Neuts % (Manual) Lymphocytes % (Manual) Nucleated RBC % Seg Neutrophils # Man Lymphocytes # (Manual) Monocytes # (Manual) PT INR APTT POC ABG pH ABG pH POC ABG pO2 ABG pO2 ABG HCO3 ABG O2 Saturation ABG Base Excess ABG Hemoglobin VBG pH Oxyhemoglobin Sodium Potassium Chloride Carbon Dioxide BUN Creatinine Glucose POC Glucose 145 H 153 H 174 H Lactic Acid Calcium Phosphorus Magnesium Iron TIBC AST ALT Alkaline Phosphatase Total Creatine Kinase CK-MB (CK-2) C-Reactive Protein Total Protein Albumin Vitamin B12 Salicylates Acetaminophen Crossmatch 03/31/19 03/31/19 13:04 13:42 WBC RBC Hgb Hct MCV MCHC RDW Plt Count Seg Neuts % (Manual) Lymphocytes % (Manual) Nucleated RBC % Seg Neutrophils # Man Lymphocytes # (Manual) Monocytes # (Manual) PT INR APTT POC ABG pH ABG pH POC ABG pO2 ABG pO2 ABG HCO3 ABG O2 Saturation ABG Base Excess ABG Hemoglobin VBG pH Oxyhemoglobin Sodium Potassium Chloride Carbon Dioxide BUN Creatinine Glucose POC Glucose 214 H 186 H Lactic Acid Calcium Phosphorus Magnesium Iron TIBC AST ALT Alkaline Phosphatase Total Creatine Kinase CK-MB (CK-2) C-Reactive Protein Total Protein Albumin Vitamin B12 Salicylates Acetaminophen Crossmatch
[2019-03-31] MEDS: fentaNYL DRIP Premix 2,000 MCG/100 ML BAG IV SCH (15:33)
[2019-03-31] MEDS: HumuLIN R 100 UNITS in NACL 0.9% 99 ML IV SCH (15:58)
--- NOTE | 2019-03-31 16:30 | Progress Note ---
Assessment and Plan Cultures: 03/29 BCx: pend 03/29 sputum Cx: pend A/P: 28 yo F PMHx T1DM admitted after receiving intubation and compressions due to non-responsiveness likely secondary to DKA 1. SIRS - likely secondary to DKA/resuscitation, possible infective component of aspiration PNA vs penumonitis. Leukocytosis improving. Pressor requirements improving 2. Aspiration pneumonia vs pneumonitis - unclear etiology so far. Recommend stopping azithromycin for now, continue cefepime and metronidazole. If continued improvement would recommend short course of 5 days. 3. Acute liver failure - Possibly secondary to DKA, but liver enzymes vastly and quickly increased. Viral etiologies negative 4. DKA - numerous metabolic derangements, per primary/ICU team 5. T1DM Recs: - continue cefepime renally dosed at 2g q8h - continue metronidazole 500mg q8h - follow liver function Thank you for the consult, we will continue to follow. Vlad Carson MD [facility] ([facility] ([facility]) M: [phone] O: [phone] F: [phone] Subjective Date of service: 03/31/19 Interval history: No change Objective - Exam Narrative Exam: Physical Exam: Constitutional: Intubated, sedated Head, Ears, Nose: Normocephalic, atraumatic. External ears, nose normal Eyes: Conjunctivae/corneas clear. No icterus. No ptosis. Neck: Supple, no meningeal signs. Intubated Oral: dentition fair, no thrush Cardiovascular: S1, S2 normal. Respiratory: Good air entry, clear to auscultation bilaterally GI: Soft, non-tender; bowel sounds normal. No peritoneal signs. Musculoskeletal: No pedal edema, no cyanosis. Skin: No rash or abscess Hem/Lymphatic: No palpable cervical or supraclavicular nodes. No lymphangitis Neurological: Intubated, sedated - Constitutional Vitals: Vital Signs Temp Pulse Resp BP Pulse Ox 101.5 F H 125 H 24 111/75 100 03/31/19 13:39 03/31/19 13:39 03/31/19 13:39 03/31/19 13:39 03/31/19 13:39 Temperature -Last 24 Hours Temperature 101.5 F Temperature 100.7 F Temperature 100.2 F Temperature 101.6 F Temperature 98.6 F Temperature 98.5 F Temperature 98.2 F - Labs CBC & Chem 7: 03/31/19 03:51 03/31/19 08:20 Labs: Abnormal lab results 03/30/19 03/30/19 03/30/19 Range/Units 03:30 10:38 11:08 RBC (3.65-5.03) M/mm3 Hgb (10.1-14.3) gm/dl Hct (30.3-42.9) % RDW (13.2-15.2) % Plt Count (140-440) K/mm3 Seg Neuts % (Manual) (40.0-70.0) % Lymphocytes % (Manual) (13.4-35.0) % Nucleated RBC % (0.0-0.9) % Lymphocytes # (Manual) (1.2-5.4) K/mm3 ABG pH (7.350-7.450) pH Units ABG pO2 (80.0-90.0) mm Hg ABG HCO3 (20.0-26.0) mmol/L ABG O2 Saturation (95.0-99.0) % ABG Base Excess (-2.0-3.0) mmol/L ABG Hemoglobin (12.0-16.0) gm/dl Sodium (137-145) mmol/L Potassium (3.6-5.0) mmol/L Chloride (98-107) mmol/L Carbon Dioxide (22-30) mmol/L BUN (7-17) mg/dL Glucose (65-100) mg/dL POC Glucose 380 H 263 H (70-105) Lactic Acid (0.7-2.0) mmol/L Calcium (8.4-10.2) mg/dL Iron (37-170) ug/dL TIBC (250-450) mcg/dL Vitamin B12 (211-911) pg/mL Crossmatch See Detail 03/30/19 03/30/19 03/30/19 Range/Units 12:25 13:23 14:47 RBC (3.65-5.03) M/mm3 Hgb (10.1-14.3) gm/dl Hct (30.3-42.9) % RDW (13.2-15.2) % Plt Count (140-440) K/mm3 Seg Neuts % (Manual) (40.0-70.0) % Lymphocytes % (Manual) (13.4-35.0) % Nucleated RBC % (0.0-0.9) % Lymphocytes # (Manual) (1.2-5.4) K/mm3 ABG pH (7.350-7.450) pH Units ABG pO2 (80.0-90.0) mm Hg ABG HCO3 (20.0-26.0) mmol/L ABG O2 Saturation (95.0-99.0) % ABG Base Excess (-2.0-3.0) mmol/L ABG Hemoglobin (12.0-16.0) gm/dl Sodium (137-145) mmol/L Potassium (3.6-5.0) mmol/L Chloride (98-107) mmol/L Carbon Dioxide (22-30) mmol/L BUN (7-17) mg/dL Glucose (65-100) mg/dL POC Glucose 196 H 176 H 245 H (70-105) Lactic Acid (0.7-2.0) mmol/L Calcium (8.4-10.2) mg/dL Iron (37-170) ug/dL TIBC (250-450) mcg/dL Vitamin B12 (211-911) pg/mL Crossmatch 03/30/19 03/30/19 03/30/19 Range/Units 16:11 17:11 17:46 RBC (3.65-5.03) M/mm3 Hgb (10.1-14.3) gm/dl Hct (30.3-42.9) % RDW (13.2-15.2) % Plt Count (140-440) K/mm3 Seg Neuts % (Manual) (40.0-70.0) % Lymphocytes % (Manual) (13.4-35.0) % Nucleated RBC % (0.0-0.9) % Lymphocytes # (Manual) (1.2-5.4) K/mm3 ABG pH (7.350-7.450) pH Units ABG pO2 (80.0-90.0) mm Hg ABG HCO3 (20.0-26.0) mmol/L ABG O2 Saturation (95.0-99.0) % ABG Base Excess (-2.0-3.0) mmol/L ABG Hemoglobin (12.0-16.0) gm/dl Sodium (137-145) mmol/L Potassium (3.6-5.0) mmol/L Chloride (98-107) mmol/L Carbon Dioxide (22-30) mmol/L BUN (7-17) mg/dL Glucose (65-100) mg/dL POC Glucose 181 H 167 H 125 H (70-105) Lactic Acid (0.7-2.0) mmol/L Calcium (8.4-10.2) mg/dL Iron (37-170) ug/dL TIBC (250-450) mcg/dL Vitamin B12 (211-911) pg/mL Crossmatch 03/30/19 03/30/19 03/30/19 Range/Units 18:59 21:31 22:19 RBC (3.65-5.03) M/mm3 Hgb (10.1-14.3) gm/dl Hct (30.3-42.9) % RDW (13.2-15.2) % Plt Count (140-440) K/mm3 Seg Neuts % (Manual) (40.0-70.0) % Lymphocytes % (Manual) (13.4-35.0) % Nucleated RBC % (0.0-0.9) % Lymphocytes # (Manual) (1.2-5.4) K/mm3 ABG pH (7.350-7.450) pH Units ABG pO2 (80.0-90.0) mm Hg ABG HCO3 (20.0-26.0) mmol/L ABG O2 Saturation (95.0-99.0) % ABG Base Excess (-2.0-3.0) mmol/L ABG Hemoglobin (12.0-16.0) gm/dl Sodium (137-145) mmol/L Potassium (3.6-5.0) mmol/L Chloride (98-107) mmol/L Carbon Dioxide (22-30) mmol/L BUN (7-17) mg/dL Glucose (65-100) mg/dL POC Glucose 140 H 166 H 115 H (70-105) Lactic Acid (0.7-2.0) mmol/L Calcium (8.4-10.2) mg/dL Iron (37-170) ug/dL TIBC (250-450) mcg/dL Vitamin B12 (211-911) pg/mL Crossmatch 03/30/19 03/31/19 03/31/19 Range/Units 23:13 00:03 01:18 RBC (3.65-5.03) M/mm3 Hgb (10.1-14.3) gm/dl Hct (30.3-42.9) % RDW (13.2-15.2) % Plt Count (140-440) K/mm3 Seg Neuts % (Manual) (40.0-70.0) % Lymphocytes % (Manual) (13.4-35.0) % Nucleated RBC % (0.0-0.9) % Lymphocytes # (Manual) (1.2-5.4) K/mm3 ABG pH (7.350-7.450) pH Units ABG pO2 (80.0-90.0) mm Hg ABG HCO3 (20.0-26.0) mmol/L ABG O2 Saturation (95.0-99.0) % ABG Base Excess (-2.0-3.0) mmol/L ABG Hemoglobin (12.0-16.0) gm/dl Sodium (137-145) mmol/L Potassium (3.6-5.0) mmol/L Chloride (98-107) mmol/L Carbon Dioxide (22-30) mmol/L BUN (7-17) mg/dL Glucose (65-100) mg/dL POC Glucose 112 H 188 H 114 H (70-105) Lactic Acid (0.7-2.0) mmol/L Calcium (8.4-10.2) mg/dL Iron (37-170) ug/dL TIBC (250-450) mcg/dL Vitamin B12 (211-911) pg/mL Crossmatch 03/31/19 03/31/19 03/31/19 Range/Units 03:07 03:50 03:51 RBC 1.89 L (3.65-5.03) M/mm3 Hgb 6.1 L (10.1-14.3) gm/dl Hct 18.2 L* (30.3-42.9) % RDW 17.7 H (13.2-15.2) % Plt Count 89 L (140-440) K/mm3 Seg Neuts % (Manual) 86.0 H (40.0-70.0) % Lymphocytes % (Manual) 10.0 L (13.4-35.0) % Nucleated RBC % 1.0 H (0.0-0.9) % Lymphocytes # (Manual) 0.7 L (1.2-5.4) K/mm3 ABG pH 7.525 H (7.350-7.450) pH Units ABG pO2 178.0 H (80.0-90.0) mm Hg ABG HCO3 19.5 L (20.0-26.0) mmol/L ABG O2 Saturation 99.2 H (95.0-99.0) % ABG Base Excess -3.1 L (-2.0-3.0) mmol/L ABG Hemoglobin 5.8 L (12.0-16.0) gm/dl Sodium (137-145) mmol/L Potassium (3.6-5.0) mmol/L Chloride (98-107) mmol/L Carbon Dioxide (22-30) mmol/L BUN (7-17) mg/dL Glucose (65-100) mg/dL POC Glucose 107 H (70-105) Lactic Acid (0.7-2.0) mmol/L Calcium (8.4-10.2) mg/dL Iron (37-170) ug/dL TIBC (250-450) mcg/dL Vitamin B12 (211-911) pg/mL Crossmatch 03/31/19 03/31/19 03/31/19 Range/Units 03:51 04:05 05:05 RBC (3.65-5.03) M/mm3 Hgb (10.1-14.3) gm/dl Hct (30.3-42.9) % RDW (13.2-15.2) % Plt Count (140-440) K/mm3 Seg Neuts % (Manual) (40.0-70.0) % Lymphocytes % (Manual) (13.4-35.0) % Nucleated RBC % (0.0-0.9) % Lymphocytes # (Manual) (1.2-5.4) K/mm3 ABG pH (7.350-7.450) pH Units ABG pO2 (80.0-90.0) mm Hg ABG HCO3 (20.0-26.0) mmol/L ABG O2 Saturation (95.0-99.0) % ABG Base Excess (-2.0-3.0) mmol/L ABG Hemoglobin (12.0-16.0) gm/dl Sodium 151 H (137-145) mmol/L Potassium 3.2 L (3.6-5.0) mmol/L Chloride 119.4 H (98-107) mmol/L Carbon Dioxide 17 L (22-30) mmol/L BUN 35 H (7-17) mg/dL Glucose 139 H (65-100) mg/dL POC Glucose 153 H 176 H (70-105) Lactic Acid (0.7-2.0) mmol/L Calcium 7.1 L (8.4-10.2) mg/dL Iron (37-170) ug/dL TIBC (250-450) mcg/dL Vitamin B12 (211-911) pg/mL Crossmatch 03/31/19 03/31/19 03/31/19 Range/Units 05:35 06:23 07:50 RBC (3.65-5.03) M/mm3 Hgb (10.1-14.3) gm/dl Hct (30.3-42.9) % RDW (13.2-15.2) % Plt Count (140-440) K/mm3 Seg Neuts % (Manual) (40.0-70.0) % Lymphocytes % (Manual) (13.4-35.0) % Nucleated RBC % (0.0-0.9) % Lymphocytes # (Manual) (1.2-5.4) K/mm3 ABG pH (7.350-7.450) pH Units ABG pO2 (80.0-90.0) mm Hg ABG HCO3 (20.0-26.0) mmol/L ABG O2 Saturation (95.0-99.0) % ABG Base Excess (-2.0-3.0) mmol/L ABG Hemoglobin (12.0-16.0) gm/dl Sodium (137-145) mmol/L Potassium (3.6-5.0) mmol/L Chloride (98-107) mmol/L Carbon Dioxide (22-30) mmol/L BUN (7-17) mg/dL Glucose (65-100) mg/dL POC Glucose 133 H (70-105) Lactic Acid 3.20 H* 3.30 H* (0.7-2.0) mmol/L Calcium (8.4-10.2) mg/dL Iron (37-170) ug/dL TIBC (250-450) mcg/dL Vitamin B12 (211-911) pg/mL Crossmatch 03/31/19 03/31/19 03/31/19 Range/Units 07:51 08:20 08:20 RBC (3.65-5.03) M/mm3 Hgb (10.1-14.3) gm/dl Hct (30.3-42.9) % RDW (13.2-15.2) % Plt Count (140-440) K/mm3 Seg Neuts % (Manual) (40.0-70.0) % Lymphocytes % (Manual) (13.4-35.0) % Nucleated RBC % (0.0-0.9) % Lymphocytes # (Manual) (1.2-5.4) K/mm3 ABG pH (7.350-7.450) pH Units ABG pO2 (80.0-90.0) mm Hg ABG HCO3 (20.0-26.0) mmol/L ABG O2 Saturation (95.0-99.0) % ABG Base Excess (-2.0-3.0) mmol/L ABG Hemoglobin (12.0-16.0) gm/dl Sodium (137-145) mmol/L Potassium (3.6-5.0) mmol/L Chloride (98-107) mmol/L Carbon Dioxide (22-30) mmol/L BUN (7-17) mg/dL Glucose (65-100) mg/dL POC Glucose 135 H (70-105) Lactic Acid (0.7-2.0) mmol/L Calcium (8.4-10.2) mg/dL Iron 26 L (37-170) ug/dL TIBC 193 L (250-450) mcg/dL Vitamin B12 > 2000 H (211-911) pg/mL Crossmatch 03/31/19 03/31/19 03/31/19 Range/Units 08:20 09:06 10:47 RBC (3.65-5.03) M/mm3 Hgb (10.1-14.3) gm/dl Hct (30.3-42.9) % RDW (13.2-15.2) % Plt Count (140-440) K/mm3 Seg Neuts % (Manual) (40.0-70.0) % Lymphocytes % (Manual) (13.4-35.0) % Nucleated RBC % (0.0-0.9) % Lymphocytes # (Manual) (1.2-5.4) K/mm3 ABG pH (7.350-7.450) pH Units ABG pO2 (80.0-90.0) mm Hg ABG HCO3 (20.0-26.0) mmol/L ABG O2 Saturation (95.0-99.0) % ABG Base Excess (-2.0-3.0) mmol/L ABG Hemoglobin (12.0-16.0) gm/dl Sodium 153 H (137-145) mmol/L Potassium 3.0 L (3.6-5.0) mmol/L Chloride 118.9 H (98-107) mmol/L Carbon Dioxide 18 L (22-30) mmol/L BUN 37 H (7-17) mg/dL Glucose 132 H (65-100) mg/dL POC Glucose 145 H 153 H (70-105) Lactic Acid (0.7-2.0) mmol/L Calcium 7.1 L (8.4-10.2) mg/dL Iron (37-170) ug/dL TIBC (250-450) mcg/dL Vitamin B12 (211-911) pg/mL Crossmatch 03/31/19 03/31/19 03/31/19 Range/Units 11:49 13:04 13:42 RBC (3.65-5.03) M/mm3 Hgb (10.1-14.3) gm/dl Hct (30.3-42.9) % RDW (13.2-15.2) % Plt Count (140-440) K/mm3 Seg Neuts % (Manual) (40.0-70.0) % Lymphocytes % (Manual) (13.4-35.0) % Nucleated RBC % (0.0-0.9) % Lymphocytes # (Manual) (1.2-5.4) K/mm3 ABG pH (7.350-7.450) pH Units ABG pO2 (80.0-90.0) mm Hg ABG HCO3 (20.0-26.0) mmol/L ABG O2 Saturation (95.0-99.0) % ABG Base Excess (-2.0-3.0) mmol/L ABG Hemoglobin (12.0-16.0) gm/dl Sodium (137-145) mmol/L Potassium (3.6-5.0) mmol/L Chloride (98-107) mmol/L Carbon Dioxide (22-30) mmol/L BUN (7-17) mg/dL Glucose (65-100) mg/dL POC Glucose 174 H 214 H 186 H (70-105) Lactic Acid (0.7-2.0) mmol/L Calcium (8.4-10.2) mg/dL Iron (37-170) ug/dL TIBC (250-450) mcg/dL Vitamin B12 (211-911) pg/mL Crossmatch 03/31/19 Range/Units 15:08 RBC (3.65-5.03) M/mm3 Hgb (10.1-14.3) gm/dl Hct (30.3-42.9) % RDW (13.2-15.2) % Plt Count (140-440) K/mm3 Seg Neuts % (Manual) (40.0-70.0) % Lymphocytes % (Manual) (13.4-35.0) % Nucleated RBC % (0.0-0.9) % Lymphocytes # (Manual) (1.2-5.4) K/mm3 ABG pH (7.350-7.450) pH Units ABG pO2 (80.0-90.0) mm Hg ABG HCO3 (20.0-26.0) mmol/L ABG O2 Saturation (95.0-99.0) % ABG Base Excess (-2.0-3.0) mmol/L ABG Hemoglobin (12.0-16.0) gm/dl Sodium (137-145) mmol/L Potassium (3.6-5.0) mmol/L Chloride (98-107) mmol/L Carbon Dioxide (22-30) mmol/L BUN (7-17) mg/dL Glucose (65-100) mg/dL POC Glucose 136 H (70-105) Lactic Acid (0.7-2.0) mmol/L Calcium (8.4-10.2) mg/dL Iron (37-170) ug/dL TIBC (250-450) mcg/dL Vitamin B12 (211-911) pg/mL Crossmatch
[2019-03-31 17:40] LABS: Hemoglobin 7.7 gm/dl (10.1-14.3)
[2019-03-31] MEDS: D5W/0.45% NACL/KCL 20 MEQ 20 MEQ/1,000 ML BAG IV SCH (17:50)
[2019-03-31 17:58] LABS: BUN/Creatinine Ratio 43; Blood Urea Nitrogen 34 mg/dL (7-17); Calcium 7.6 mg/dL (8.4-10.2); Hemolysis Index 21
[2019-04-01] MEDS: D5W/0.45% NACL/KCL 20 MEQ 20 MEQ/1,000 ML BAG IV SCH ×2 (02:43→11:03)
[2019-04-01] MEDS: Vasostrict 20 UNIT in NACL 0.9% 100 ML IV SCH ×2 (03:08→14:21)
--- NOTE | 2019-04-01 03:56 | XRay Report ---
CHEST 1 VIEW [id number] INDICATION / CLINICAL INFORMATION: follow up respiratory failure. COMPARISON: 03/31/2019 FINDINGS: SUPPORT DEVICES: Stable HEART / MEDIASTINUM: Stable LUNGS / PLEURA: Right lung field remains clear. Increasing pneumonic type infiltrate is seen in the l eft mid to lower lung field. No pneumothorax. ADDITIONAL FINDINGS: No significant additional findings. IMPRESSION: Worsening infiltrate in the left Signer Name: Jair Woo MD Signed: 04/01/2019 3:52 AM Workstation Name: [facility] [place]
[2019-04-01] MEDS: CEFEPIME/NS 2 GM/100 ML 2 GM/100 ML BAG IV SCH ×3 (05:23→21:13)
[2019-04-01] MEDS: FLAGYL 500 MG/100 ML 500 MG/100 ML BAG IV SCH ×3 (05:23→21:58)
[2019-04-01 05:27] LABS: Hematocrit 20.5 % (30.3-42.9); Hemoglobin 6.8 gm/dl (10.1-14.3); Mean Corpuscular HGB Conc 33 % (30-34); Mean Corpuscular Volume 100 fl (79-97); Red Blood Count 2.05 M/mm3 (3.65-5.03); Red Cell Distribution Width 17.7 % (13.2-15.2)
[2019-04-01 05:34] LABS: Platelet Count 53 K/mm3 (140-440)
[2019-04-01 05:36] LABS: ABG Base Excess -3.5 mmol/L (-2.0-3.0); ABG HCO3 20.6 mmol/L (20.0-26.0); ABG Methemoglobin 0.5 % (0.0-1.5); ABG PCO2 32.4 mm Hg; ABG PH 7.421 pH Units (7.350-7.450); ABG PO2 78.3 mm Hg (80.0-90.0)
[2019-04-01 06:00] LABS: Albumin 1.6 g/dL (3.9-5); Bilirubin,Direct 0.3 mg/dL (0-0.2)
[2019-04-01 06:43] LABS: Basophils % (Manual) 0 % (0.0-1.8); RBC Morphology Normal; Total Cells Counted 100
[2019-04-01] MEDS: PEPCID IV SCH ×2 (09:22→21:12)
[2019-04-01] MEDS: SODIUM CHLORIDE FLUSH SYRINGE 10 ML IV SCH ×2 (09:25→21:12)
[2019-04-01] MEDS: KEPPRA 500 MG in D5W 100 ML IV SCH ×2 (10:15→21:58)
[2019-04-01 10:18] LABS: Hemoglobin 6.5 gm/dl (10.1-14.3)
[2019-04-01 10:23] LABS: Hematocrit 19.2 % (30.3-42.9)
[2019-04-01 10:48] LABS: Albumin 1.8 g/dL (3.9-5); BUN/Creatinine Ratio 66; Blood Urea Nitrogen 33 mg/dL (7-17); Calcium 7.3 mg/dL (8.4-10.2); Hemolysis Index 3
[2019-04-01 11:15] LABS: Alanine Aminotransferase 1440 units/L (7-56)
[2019-04-01] MEDS ORDERED: NACL 0.9% 500 ML 500 ML IV ONE (12:00)
--- NOTE | 2019-04-01 12:53 | Progress Note ---
Assessment and Plan Acute respiratory failure - on vent, cont nebs, CC consulted Acute encephalopathy, POA Cardiac arrest s/p resuscitation - likely 2/2 severe hyperglycemia - preserved EF onb2d echo DKA, severe - BG was >2200 on admission - on insulin drip since admission. 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 - no sign of blood loss - dropped to 6.1 transfused 1 unit yesterday, Hb 6.5 this am - will order DIc panel and transfuse another unit of PRBC Hyperkalemia, resolved with fluid and insulin hypokalemia, replete as needed, monitor BMP Shock liver with elevated LFT and Coagulopathy - due to cardiac arrest and hypotension - cont to monitor Hypermagnesemia Hyperphosphatemia - cont to monitor, improved DVT Px, heparin The high probability of a clinically significant, sudden or life threatening deterioration of the [multiple] system(s) required my full and direct attention, intervention and personal management. The aggregate critical care time was [35] minutes. This time is in addition to time spent performing reported procedures but includes the following: [x] Data Review and interpretation [x] Patient assessment and monitoring of vital signs [x] Documentation [x] Medication orders and management Subjective Date of service: 04/01/19 Interval history: Patient seen and examined Patient remained intubated, on pressor with vesopressin no family members around, off sedation discussed with RN at bedside with plan of care Objective - Exam Narrative Exam: General appearance: Present: disheveled, other (intubated, sedated) - EENT Eyes: PERRL, EOM intact ENT: hearing intact, clear oral mucosa Ears: bilateral: normal - Neck Neck: no masses or JVD, no carotid bruits - Respiratory Respiratory effort: other (on mechanical ventilation) Respiratory: bilateral: CTA - Cardiovascular Rhythm: other (tachycardic) Heart Sounds: Present: S1 & S2. Absent: gallop, rub Extremities: pulses intact, No edema, normal color - Gastrointestinal General gastrointestinal: Present: soft, non-distended, normal bowel sounds - Integumentary Integumentary: clear, warm, dry - Musculoskeletal Musculoskeletal: other (no joint swelling) - Neurologic Neurologic: other (unable to assess) - Psychiatric Psychiatric: other (unable to assess) - Constitutional Vitals: Vital Signs - 12hr 04/01/19 04/01/19 04/01/19 01:00 01:10 01:20 Temperature Pulse Rate 105 H 107 H 107 H Respiratory 20 20 19 Rate Blood Pressure 90/59 90/59 92/60 O2 Sat by Pulse 100 100 100 Oximetry 04/01/19 04/01/19 04/01/19 01:30 01:40 01:50 Temperature Pulse Rate 106 H 105 H 103 H Respiratory 19 20 20 Rate Blood Pressure 90/59 90/59 90/58 O2 Sat by Pulse 100 99 100 Oximetry 04/01/19 04/01/19 04/01/19 02:00 02:10 02:20 Temperature Pulse Rate 103 H 110 H 107 H Respiratory 19 20 20 Rate Blood Pressure 88/58 108/68 99/68 O2 Sat by Pulse 100 100 100 Oximetry 04/01/19 04/01/19 04/01/19 02:30 02:40 02:50 Temperature Pulse Rate 105 H 107 H 105 H Respiratory 19 20 20 Rate Blood Pressure 98/66 98/66 96/64 O2 Sat by Pulse 100 100 100 Oximetry 04/01/19 04/01/19 04/01/19 03:00 03:10 03:20 Temperature Pulse Rate 105 H 105 H 105 H Respiratory 19 20 19 Rate Blood Pressure 95/62 95/62 97/66 O2 Sat by Pulse 100 100 99 Oximetry 04/01/19 04/01/19 04/01/19 03:30 03:40 03:50 Temperature Pulse Rate 105 H 105 H 109 H Respiratory 20 20 20 Rate Blood Pressure 94/60 94/60 O2 Sat by Pulse 100 100 100 Oximetry 04/01/19 04/01/19 04/01/19 04:00 04:10 04:20 Temperature 98.9 F Pulse Rate 104 H 104 H 104 H Respiratory 20 20 20 Rate Blood Pressure 94/62 94/62 96/65 O2 Sat by Pulse 99 99 99 Oximetry 04/01/19 04/01/19 04/01/19 04:30 04:40 04:50 Temperature Pulse Rate 104 H 104 H 104 H Respiratory 21 20 20 Rate Blood Pressure 96/63 96/63 95/64 O2 Sat by Pulse 99 99 100 Oximetry 04/01/19 04/01/19 04/01/19 05:00 05:07 05:10 Temperature Pulse Rate 108 H 104 H 104 H Respiratory 13 20 Rate Blood Pressure 104/68 104/68 104/68 O2 Sat by Pulse 100 100 99 Oximetry 04/01/19 04/01/19 04/01/19 05:20 05:30 05:40 Temperature Pulse Rate 105 H 106 H Respiratory 20 20 Rate Blood Pressure 95/60 95/66 95/60 O2 Sat by Pulse 100 100 100 Oximetry 04/01/19 04/01/19 04/01/19 05:50 06:00 06:10 Temperature Pulse Rate 105 H 107 H 105 H Respiratory 20 20 20 Rate Blood Pressure 95/63 95/60 95/66 O2 Sat by Pulse 100 100 100 Oximetry 04/01/19 04/01/19 04/01/19 06:20 06:30 06:40 Temperature Pulse Rate 106 H 104 H 105 H Respiratory 20 20 20 Rate Blood Pressure 92/59 89/55 95/63 O2 Sat by Pulse 99 100 100 Oximetry 04/01/19 04/01/19 04/01/19 06:50 07:00 07:10 Temperature Pulse Rate 104 H 102 H 107 H Respiratory 21 20 20 Rate Blood Pressure 87/54 86/58 86/58 O2 Sat by Pulse 100 99 100 Oximetry 04/01/19 04/01/19 04/01/19 07:20 07:24 07:30 Temperature Pulse Rate 104 H 104 H 106 H Respiratory 20 20 Rate Blood Pressure 94/58 94/58 90/58 O2 Sat by Pulse 100 100 100 Oximetry 04/01/19 04/01/19 04/01/19 07:40 07:50 08:00 Temperature 99.0 F Pulse Rate 104 H 106 H 107 H Respiratory 19 21 19 Rate Blood Pressure 90/58 91/59 94/60 O2 Sat by Pulse 100 100 100 Oximetry 04/01/19 04/01/19 04/01/19 08:10 08:20 08:30 Temperature Pulse Rate 108 H 107 H 104 H Respiratory 20 20 20 Rate Blood Pressure 94/60 91/57 89/57 O2 Sat by Pulse 100 100 99 Oximetry 04/01/19 04/01/19 04/01/19 08:40 08:50 09:00 Temperature Pulse Rate 104 H 103 H 104 H Respiratory 20 19 20 Rate Blood Pressure 94/60 88/57 88/58 O2 Sat by Pulse 99 99 100 Oximetry 04/01/19 04/01/19 04/01/19 09:02 09:10 09:20 Temperature Pulse Rate 108 H 102 H 103 H Respiratory 20 21 Rate Blood Pressure 88/58 89/60 O2 Sat by Pulse 99 99 Oximetry 04/01/19 04/01/19 04/01/19 09:30 09:40 09:50 Temperature Pulse Rate 104 H 105 H 105 H Respiratory 20 20 19 Rate Blood Pressure 92/58 88/57 94/64 O2 Sat by Pulse 99 99 100 Oximetry 04/01/19 04/01/19 04/01/19 10:00 10:10 10:20 Temperature Pulse Rate 105 H 104 H 105 H Respiratory 20 20 20 Rate Blood Pressure 94/64 94/64 95/65 O2 Sat by Pulse 99 99 Oximetry 04/01/19 04/01/19 04/01/19 10:30 10:40 10:50 Temperature Pulse Rate 102 H 105 H 104 H Respiratory 21 20 20 Rate Blood Pressure 93/62 93/62 93/62 O2 Sat by Pulse 99 98 Oximetry 04/01/19 04/01/19 04/01/19 11:00 11:10 11:20 Temperature Pulse Rate 102 H 103 H 106 H Respiratory 21 21 19 Rate Blood Pressure 93/62 97/65 96/62 O2 Sat by Pulse 99 99 98 Oximetry 04/01/19 04/01/19 04/01/19 11:30 11:40 11:50 Temperature Pulse Rate 115 H 105 H 108 H Respiratory 13 20 19 Rate Blood Pressure 105/77 105/77 97/61 O2 Sat by Pulse 95 99 100 Oximetry 04/01/19 04/01/19 11:57 12:00 Temperature 98.5 F Pulse Rate 107 H 106 H Respiratory 19 Rate Blood Pressure 97/61 101/67 O2 Sat by Pulse 100 100 Oximetry - Labs CBC & Chem 7: 04/02/19 07:48 04/02/19 07:48 Labs: Abnormal lab results 03/30/19 03/31/19 03/31/19 Range/Units 03:30 13:04 13:42 RBC (3.65-5.03) M/mm3 Hgb (10.1-14.3) gm/dl Hct (30.3-42.9) % MCV (79-97) fl MCH (28-32) pg RDW (13.2-15.2) % Plt Count (140-440) K/mm3 Seg Neuts % (Manual) (40.0-70.0) % ABG pO2 (80.0-90.0) mm Hg ABG Base Excess (-2.0-3.0) mmol/L ABG Hemoglobin (12.0-16.0) gm/dl Oxyhemoglobin (95.0-99.0) % Sodium (137-145) mmol/L Potassium (3.6-5.0) mmol/L Chloride (98-107) mmol/L Carbon Dioxide (22-30) mmol/L BUN (7-17) mg/dL Creatinine (0.7-1.2) mg/dL Glucose (65-100) mg/dL POC Glucose 214 H 186 H (70-105) Calcium (8.4-10.2) mg/dL Direct Bilirubin (0-0.2) mg/dL AST (5-40) units/L ALT (7-56) units/L Alkaline Phosphatase (35-129) units/L Total Protein (6.3-8.2) g/dL Albumin (3.9-5) g/dL Crossmatch See Detail 03/31/19 03/31/19 03/31/19 Range/Units 15:08 16:08 17:11 RBC (3.65-5.03) M/mm3 Hgb (10.1-14.3) gm/dl Hct (30.3-42.9) % MCV (79-97) fl MCH (28-32) pg RDW (13.2-15.2) % Plt Count (140-440) K/mm3 Seg Neuts % (Manual) (40.0-70.0) % ABG pO2 (80.0-90.0) mm Hg ABG Base Excess (-2.0-3.0) mmol/L ABG Hemoglobin (12.0-16.0) gm/dl Oxyhemoglobin (95.0-99.0) % Sodium (137-145) mmol/L Potassium (3.6-5.0) mmol/L Chloride (98-107) mmol/L Carbon Dioxide (22-30) mmol/L BUN (7-17) mg/dL Creatinine (0.7-1.2) mg/dL Glucose (65-100) mg/dL POC Glucose 136 H 150 H 140 H (70-105) Calcium (8.4-10.2) mg/dL Direct Bilirubin (0-0.2) mg/dL AST (5-40) units/L ALT (7-56) units/L Alkaline Phosphatase (35-129) units/L Total Protein (6.3-8.2) g/dL Albumin (3.9-5) g/dL Crossmatch 03/31/19 03/31/19 03/31/19 Range/Units 17:30 17:30 17:59 RBC (3.65-5.03) M/mm3 Hgb 7.7 L (10.1-14.3) gm/dl Hct 23.0 L (30.3-42.9) % MCV (79-97) fl MCH (28-32) pg RDW (13.2-15.2) % Plt Count (140-440) K/mm3 Seg Neuts % (Manual) (40.0-70.0) % ABG pO2 (80.0-90.0) mm Hg ABG Base Excess (-2.0-3.0) mmol/L ABG Hemoglobin (12.0-16.0) gm/dl Oxyhemoglobin (95.0-99.0) % Sodium 153 H (137-145) mmol/L Potassium 3.5 L (3.6-5.0) mmol/L Chloride 119.3 H (98-107) mmol/L Carbon Dioxide 20 L (22-30) mmol/L BUN 34 H (7-17) mg/dL Creatinine (0.7-1.2) mg/dL Glucose 162 H (65-100) mg/dL POC Glucose 156 H (70-105) Calcium 7.6 L (8.4-10.2) mg/dL Direct Bilirubin (0-0.2) mg/dL AST (5-40) units/L ALT (7-56) units/L Alkaline Phosphatase (35-129) units/L Total Protein (6.3-8.2) g/dL Albumin (3.9-5) g/dL Crossmatch 03/31/19 03/31/19 03/31/19 Range/Units 18:58 20:28 21:09 RBC (3.65-5.03) M/mm3 Hgb (10.1-14.3) gm/dl Hct (30.3-42.9) % MCV (79-97) fl MCH (28-32) pg RDW (13.2-15.2) % Plt Count (140-440) K/mm3 Seg Neuts % (Manual) (40.0-70.0) % ABG pO2 (80.0-90.0) mm Hg ABG Base Excess (-2.0-3.0) mmol/L ABG Hemoglobin (12.0-16.0) gm/dl Oxyhemoglobin (95.0-99.0) % Sodium (137-145) mmol/L Potassium (3.6-5.0) mmol/L Chloride (98-107) mmol/L Carbon Dioxide (22-30) mmol/L BUN (7-17) mg/dL Creatinine (0.7-1.2) mg/dL Glucose (65-100) mg/dL POC Glucose 152 H 138 H 136 H (70-105) Calcium (8.4-10.2) mg/dL Direct Bilirubin (0-0.2) mg/dL AST (5-40) units/L ALT (7-56) units/L Alkaline Phosphatase (35-129) units/L Total Protein (6.3-8.2) g/dL Albumin (3.9-5) g/dL Crossmatch 03/31/19 03/31/19 04/01/19 Range/Units 22:15 23:10 00:05 RBC (3.65-5.03) M/mm3 Hgb (10.1-14.3) gm/dl Hct (30.3-42.9) % MCV (79-97) fl MCH (28-32) pg RDW (13.2-15.2) % Plt Count (140-440) K/mm3 Seg Neuts % (Manual) (40.0-70.0) % ABG pO2 (80.0-90.0) mm Hg ABG Base Excess (-2.0-3.0) mmol/L ABG Hemoglobin (12.0-16.0) gm/dl Oxyhemoglobin (95.0-99.0) % Sodium (137-145) mmol/L Potassium (3.6-5.0) mmol/L Chloride (98-107) mmol/L Carbon Dioxide (22-30) mmol/L BUN (7-17) mg/dL Creatinine (0.7-1.2) mg/dL Glucose (65-100) mg/dL POC Glucose 137 H 148 H 143 H (70-105) Calcium (8.4-10.2) mg/dL Direct Bilirubin (0-0.2) mg/dL AST (5-40) units/L ALT (7-56) units/L Alkaline Phosphatase (35-129) units/L Total Protein (6.3-8.2) g/dL Albumin (3.9-5) g/dL Crossmatch 04/01/19 04/01/19 04/01/19 Range/Units 01:17 02:11 03:12 RBC (3.65-5.03) M/mm3 Hgb (10.1-14.3) gm/dl Hct (30.3-42.9) % MCV (79-97) fl MCH (28-32) pg RDW (13.2-15.2) % Plt Count (140-440) K/mm3 Seg Neuts % (Manual) (40.0-70.0) % ABG pO2 (80.0-90.0) mm Hg ABG Base Excess (-2.0-3.0) mmol/L ABG Hemoglobin (12.0-16.0) gm/dl Oxyhemoglobin (95.0-99.0) % Sodium (137-145) mmol/L Potassium (3.6-5.0) mmol/L Chloride (98-107) mmol/L Carbon Dioxide (22-30) mmol/L BUN (7-17) mg/dL Creatinine (0.7-1.2) mg/dL Glucose (65-100) mg/dL POC Glucose 151 H 155 H 140 H (70-105) Calcium (8.4-10.2) mg/dL Direct Bilirubin (0-0.2) mg/dL AST (5-40) units/L ALT (7-56) units/L Alkaline Phosphatase (35-129) units/L Total Protein (6.3-8.2) g/dL Albumin (3.9-5) g/dL Crossmatch 04/01/19 04/01/19 04/01/19 Range/Units 04:03 04:16 05:01 RBC 2.05 L (3.65-5.03) M/mm3 Hgb 6.8 L (10.1-14.3) gm/dl Hct 20.5 L (30.3-42.9) % MCV 100 H (79-97) fl MCH 33 H (28-32) pg RDW 17.7 H (13.2-15.2) % Plt Count 53 L (140-440) K/mm3 Seg Neuts % (Manual) 71.0 H (40.0-70.0) % ABG pO2 (80.0-90.0) mm Hg ABG Base Excess (-2.0-3.0) mmol/L ABG Hemoglobin (12.0-16.0) gm/dl Oxyhemoglobin (95.0-99.0) % Sodium (137-145) mmol/L Potassium (3.6-5.0) mmol/L Chloride (98-107) mmol/L Carbon Dioxide (22-30) mmol/L BUN (7-17) mg/dL Creatinine (0.7-1.2) mg/dL Glucose (65-100) mg/dL POC Glucose 143 H 142 H (70-105) Calcium (8.4-10.2) mg/dL Direct Bilirubin (0-0.2) mg/dL AST (5-40) units/L ALT (7-56) units/L Alkaline Phosphatase (35-129) units/L Total Protein (6.3-8.2) g/dL Albumin (3.9-5) g/dL Crossmatch 04/01/19 04/01/19 04/01/19 Range/Units 05:01 05:08 05:23 RBC (3.65-5.03) M/mm3 Hgb (10.1-14.3) gm/dl Hct (30.3-42.9) % MCV (79-97) fl MCH (28-32) pg RDW (13.2-15.2) % Plt Count (140-440) K/mm3 Seg Neuts % (Manual) (40.0-70.0) % ABG pO2 (80.0-90.0) mm Hg ABG Base Excess (-2.0-3.0) mmol/L ABG Hemoglobin (12.0-16.0) gm/dl Oxyhemoglobin (95.0-99.0) % Sodium (137-145) mmol/L Potassium (3.6-5.0) mmol/L Chloride (98-107) mmol/L Carbon Dioxide (22-30) mmol/L BUN (7-17) mg/dL Creatinine (0.7-1.2) mg/dL Glucose (65-100) mg/dL POC Glucose 119 H 115 H (70-105) Calcium (8.4-10.2) mg/dL Direct Bilirubin 0.3 H (0-0.2) mg/dL AST 4601 H (5-40) units/L ALT 1542 H (7-56) units/L Alkaline Phosphatase 185 H (35-129) units/L Total Protein 3.8 L (6.3-8.2) g/dL Albumin 1.6 L (3.9-5) g/dL Crossmatch 04/01/19 04/01/19 04/01/19 Range/Units 06:37 08:15 09:50 RBC (3.65-5.03) M/mm3 Hgb 6.5 L (10.1-14.3) gm/dl Hct 19.2 L* (30.3-42.9) % MCV (79-97) fl MCH (28-32) pg RDW (13.2-15.2) % Plt Count (140-440) K/mm3 Seg Neuts % (Manual) (40.0-70.0) % ABG pO2 (80.0-90.0) mm Hg ABG Base Excess (-2.0-3.0) mmol/L ABG Hemoglobin (12.0-16.0) gm/dl Oxyhemoglobin (95.0-99.0) % Sodium (137-145) mmol/L Potassium (3.6-5.0) mmol/L Chloride (98-107) mmol/L Carbon Dioxide (22-30) mmol/L BUN (7-17) mg/dL Creatinine (0.7-1.2) mg/dL Glucose (65-100) mg/dL POC Glucose 124 H 138 H (70-105) Calcium (8.4-10.2) mg/dL Direct Bilirubin (0-0.2) mg/dL AST (5-40) units/L ALT (7-56) units/L Alkaline Phosphatase (35-129) units/L Total Protein (6.3-8.2) g/dL Albumin (3.9-5) g/dL Crossmatch 04/01/19 04/01/19 04/01/19 Range/Units 10:10 10:31 11:35 RBC (3.65-5.03) M/mm3 Hgb (10.1-14.3) gm/dl Hct (30.3-42.9) % MCV (79-97) fl MCH (28-32) pg RDW (13.2-15.2) % Plt Count (140-440) K/mm3 Seg Neuts % (Manual) (40.0-70.0) % ABG pO2 (80.0-90.0) mm Hg ABG Base Excess (-2.0-3.0) mmol/L ABG Hemoglobin (12.0-16.0) gm/dl Oxyhemoglobin (95.0-99.0) % Sodium 149 H (137-145) mmol/L Potassium 3.5 L (3.6-5.0) mmol/L Chloride 119.9 H (98-107) mmol/L Carbon Dioxide 21 L (22-30) mmol/L BUN 33 H (7-17) mg/dL Creatinine 0.5 L (0.7-1.2) mg/dL Glucose 142 H (65-100) mg/dL POC Glucose 185 H 201 H (70-105) Calcium 7.3 L (8.4-10.2) mg/dL Direct Bilirubin (0-0.2) mg/dL AST 3686 H (5-40) units/L ALT 1440 H (7-56) units/L Alkaline Phosphatase 185 H (35-129) units/L Total Protein 3.7 L (6.3-8.2) g/dL Albumin 1.8 L (3.9-5) g/dL Crossmatch 04/01/19 Range/Units Unknown RBC (3.65-5.03) M/mm3 Hgb (10.1-14.3) gm/dl Hct (30.3-42.9) % MCV (79-97) fl MCH (28-32) pg RDW (13.2-15.2) % Plt Count (140-440) K/mm3 Seg Neuts % (Manual) (40.0-70.0) % ABG pO2 78.3 L (80.0-90.0) mm Hg ABG Base Excess -3.5 L (-2.0-3.0) mmol/L ABG Hemoglobin 6.8 L (12.0-16.0) gm/dl Oxyhemoglobin 94.3 L (95.0-99.0) % Sodium (137-145) mmol/L Potassium (3.6-5.0) mmol/L Chloride (98-107) mmol/L Carbon Dioxide (22-30) mmol/L BUN (7-17) mg/dL Creatinine (0.7-1.2) mg/dL Glucose (65-100) mg/dL POC Glucose (70-105) Calcium (8.4-10.2) mg/dL Direct Bilirubin (0-0.2) mg/dL AST (5-40) units/L ALT (7-56) units/L Alkaline Phosphatase (35-129) units/L Total Protein (6.3-8.2) g/dL Albumin (3.9-5) g/dL Crossmatch
--- NOTE | 2019-04-01 13:16 | Progress Note ---
Assessment and Plan Acute toxic metabolic encephalopathy. Diabetic ketoacidosis. Severe sepsis with shock. Possible aspiration pneumonia. History of polysubstance abuse. Leukocytosis. Elevated serum transaminases, possible shock liver. Hyponatremia related to her severe hyperglycemia. Anemia that is macrocytic. History of seizure disorder. Severe metabolic acidosis. Acute kidney injury, possibly on chronic - transfuse PRBC's to keep Hb >/= 7.- g/dl - contact isolation instituted and RN asked to inform ID physycian - follow HIT assay (No heparinoids) - continue to follow mental status closely - continue and de-escalate antiinfective's per ID recommendations - follow prn CRP & lactate levels to aid clinical decision making - continue daily SAT and SBT assessments as tolerated - stop IV insulin (Gap closed) - begin enteral nutrition with glucerna and adjust rate per recycling specialist - discontinued lew catheter - continue bronchodilators with pulmonary hygiene per RT - VAP bundle addressed - continue to wean supplemental O2 to keep O2 sats > 90% - VTE prophylaxis - Stress ulcer prophylaxis - continue accuchecks with glycemic control per SSI for target blood glucose 140-180 mg/dL - continue empiric antibiotics; de-escalate per ID rec's and based on clinical and microbiologic data - sedation target of RASS 0 to -1 - continue Keppra for seizures - continue mobility protocols / off loading for pressure ulcer prevention - Critical care bundles addressed - continue Seizure precautions - fall precautions - neuro-checks per RN - continue other care per attending / other consultants CONDITION: CRITICAL PROGNOSIS: GUARDED TO GRAVE CODE STATUS: FULL CODE The high probability of a clinically significant, sudden or life threatening deterioration of the [Neurology Respiratory, Cardiovascular] system(s) required my full and direct attention, intervention and personal management. The aggregate critical care time was [34] minutes. This time is in addition to time spent performing reported procedures but includes the following: [x] Data Review and interpretation [x] Patient assessment and monitoring of vital signs [x] Documentation [x] Medication orders and management Subjective Date of service: 04/01/19 Principal diagnosis: Ac Hypoxemic Resp Failure; DKA; Severe sepsis with shock; ANGELICA Interval history: Patient is seen today for: Acute Hypoxemic Resp Failure; Ac toxic metabolic encephalopathy; DKA; Severe sepsis with shock; Possible aspiration pneumonia; History of polysubstance abuse; History of seizure disorder; Acute kidney injury, possibly on chronic Seen and examined at bedside; 24hour events reviewed; nursing and respiratory care staff consulted; no adverse overnight events reported to me; resting peacefully in bed; a little more responsive and moving all extremities; H&H still dropping but no gross bleeding; attending to order DIC panel; no seizures; lice reported in patients hair and contact isolation instituted Objective Vital Signs - 12hr 04/01/19 04/01/19 04/01/19 01:20 01:30 01:40 Temperature Pulse Rate 107 H 106 H 105 H Respiratory 19 19 20 Rate Blood Pressure 92/60 90/59 90/59 O2 Sat by Pulse 100 100 99 Oximetry 04/01/19 04/01/19 04/01/19 01:50 02:00 02:10 Temperature Pulse Rate 103 H 103 H 110 H Respiratory 20 19 20 Rate Blood Pressure 90/58 88/58 108/68 O2 Sat by Pulse 100 100 100 Oximetry 04/01/19 04/01/19 04/01/19 02:20 02:30 02:40 Temperature Pulse Rate 107 H 105 H 107 H Respiratory 20 19 20 Rate Blood Pressure 99/68 98/66 98/66 O2 Sat by Pulse 100 100 100 Oximetry 04/01/19 04/01/19 04/01/19 02:50 03:00 03:10 Temperature Pulse Rate 105 H 105 H 105 H Respiratory 20 19 20 Rate Blood Pressure 96/64 95/62 95/62 O2 Sat by Pulse 100 100 100 Oximetry 04/01/19 04/01/19 04/01/19 03:20 03:30 03:40 Temperature Pulse Rate 105 H 105 H 105 H Respiratory 19 20 20 Rate Blood Pressure 97/66 94/60 O2 Sat by Pulse 99 100 100 Oximetry 04/01/19 04/01/19 04/01/19 03:50 04:00 04:10 Temperature 98.9 F Pulse Rate 109 H 104 H 104 H Respiratory 20 20 20 Rate Blood Pressure 94/60 94/62 94/62 O2 Sat by Pulse 100 99 99 Oximetry 04/01/19 04/01/19 04/01/19 04:20 04:30 04:40 Temperature Pulse Rate 104 H 104 H 104 H Respiratory 20 21 20 Rate Blood Pressure 96/65 96/63 96/63 O2 Sat by Pulse 99 99 99 Oximetry 04/01/19 04/01/19 04/01/19 04:50 05:00 05:07 Temperature Pulse Rate 104 H 108 H 104 H Respiratory 20 13 Rate Blood Pressure 95/64 104/68 104/68 O2 Sat by Pulse 100 100 100 Oximetry 04/01/19 04/01/19 04/01/19 05:10 05:20 05:30 Temperature Pulse Rate 104 H 105 H Respiratory 20 20 Rate Blood Pressure 104/68 95/60 95/66 O2 Sat by Pulse 99 100 100 Oximetry 04/01/19 04/01/19 04/01/19 05:40 05:50 06:00 Temperature Pulse Rate 106 H 105 H 107 H Respiratory 20 20 20 Rate Blood Pressure 95/60 95/63 95/60 O2 Sat by Pulse 100 100 100 Oximetry 04/01/19 04/01/19 04/01/19 06:10 06:20 06:30 Temperature Pulse Rate 105 H 106 H 104 H Respiratory 20 20 20 Rate Blood Pressure 95/66 92/59 89/55 O2 Sat by Pulse 100 99 100 Oximetry 04/01/19 04/01/19 04/01/19 06:40 06:50 07:00 Temperature Pulse Rate 105 H 104 H 102 H Respiratory 20 21 20 Rate Blood Pressure 95/63 87/54 86/58 O2 Sat by Pulse 100 100 99 Oximetry 04/01/19 04/01/19 04/01/19 07:10 07:20 07:24 Temperature Pulse Rate 107 H 104 H 104 H Respiratory 20 20 Rate Blood Pressure 86/58 94/58 94/58 O2 Sat by Pulse 100 100 100 Oximetry 04/01/19 04/01/19 04/01/19 07:30 07:40 07:50 Temperature Pulse Rate 106 H 104 H 106 H Respiratory 20 19 21 Rate Blood Pressure 90/58 90/58 91/59 O2 Sat by Pulse 100 100 100 Oximetry 04/01/19 04/01/19 04/01/19 08:00 08:10 08:20 Temperature 99.0 F Pulse Rate 107 H 108 H 107 H Respiratory 19 20 20 Rate Blood Pressure 94/60 94/60 91/57 O2 Sat by Pulse 100 100 100 Oximetry 04/01/19 04/01/19 04/01/19 08:30 08:40 08:50 Temperature Pulse Rate 104 H 104 H 103 H Respiratory 20 20 19 Rate Blood Pressure 89/57 94/60 88/57 O2 Sat by Pulse 99 99 99 Oximetry 04/01/19 04/01/19 04/01/19 09:00 09:02 09:10 Temperature Pulse Rate 104 H 108 H 102 H Respiratory 20 20 Rate Blood Pressure 88/58 88/58 O2 Sat by Pulse 100 99 Oximetry 04/01/19 04/01/19 04/01/19 09:20 09:30 09:40 Temperature Pulse Rate 103 H 104 H 105 H Respiratory 21 20 20 Rate Blood Pressure 89/60 92/58 88/57 O2 Sat by Pulse 99 99 99 Oximetry 04/01/19 04/01/19 04/01/19 09:50 10:00 10:10 Temperature Pulse Rate 105 H 105 H 104 H Respiratory 19 20 20 Rate Blood Pressure 94/64 94/64 94/64 O2 Sat by Pulse 100 99 Oximetry 04/01/19 04/01/19 04/01/19 10:20 10:30 10:40 Temperature Pulse Rate 105 H 102 H 105 H Respiratory 20 21 20 Rate Blood Pressure 95/65 93/62 93/62 O2 Sat by Pulse 99 99 Oximetry 04/01/19 04/01/19 04/01/19 10:50 11:00 11:10 Temperature Pulse Rate 104 H 102 H 103 H Respiratory 20 21 21 Rate Blood Pressure 93/62 93/62 97/65 O2 Sat by Pulse 98 99 99 Oximetry 04/01/19 04/01/19 04/01/19 11:20 11:30 11:40 Temperature Pulse Rate 106 H 115 H 105 H Respiratory 19 13 20 Rate Blood Pressure 96/62 105/77 105/77 O2 Sat by Pulse 98 95 99 Oximetry 04/01/19 04/01/19 04/01/19 11:50 11:57 12:00 Temperature 98.5 F Pulse Rate 108 H 107 H 106 H Respiratory 19 19 Rate Blood Pressure 97/61 97/61 101/67 O2 Sat by Pulse 100 100 100 Oximetry 04/01/19 04/01/19 04/01/19 12:10 12:20 12:30 Temperature Pulse Rate 107 H 107 H 106 H Respiratory 20 20 20 Rate Blood Pressure 101/67 99/65 102/66 O2 Sat by Pulse 100 100 99 Oximetry 04/01/19 04/01/19 04/01/19 12:40 12:50 13:00 Temperature Pulse Rate 108 H 107 H 113 H Respiratory 20 20 21 Rate Blood Pressure 102/66 99/66 101/67 O2 Sat by Pulse 99 100 Oximetry 04/01/19 13:10 Temperature Pulse Rate 109 H Respiratory 20 Rate Blood Pressure 101/67 O2 Sat by Pulse 100 Oximetry Constitutional: appears uncomfortable, other (young CF normocephalic and atr aumatic on MVS) Eyes: non-icteric ENT: oropharynx moist, other (ETT 22-23 cm Jessi) Neck: supple, no lymphadenopathy, no JVD Effort: mildly labored Ascultation: Bilateral: rhonchi Percussion: Bilateral: not dull Cardiovascular: regular rate and rhythm, other (sinus tachycardia) Gastrointestinal: normoactive bowel sounds, soft, non-tender, non-distended Integumentary: normal Extremities: no cyanosis, pink and warm, pulses normal, no ischemia or ruddy chiae, edema (trace to 1+) Neurologic: non-focal exam (grossly), other (Sedated) Psychiatric: other (unable to assess) CBC and BMP: 04/02/19 07:48 04/02/19 07:48 ABG, PT/INR, D-dimer: ABG POC ABG pH 7.251 (7.35-7.45) L 03/30/19 03:15 ABG pH 7.421 pH Units (7.350-7.450) 04/01/19 Unknown ABG pCO2 32.4 mm Hg 04/01/19 Unknown POC ABG pO2 156 (80-105) H 03/30/19 03:15 ABG pO2 78.3 mm Hg (80.0-90.0) L 04/01/19 Unknown POC ABG HCO3 9.4 (22-26 mml/L) 03/30/19 03:15 POC ABG Total CO2 10 (23-27mmol/L) 03/30/19 03:15 POC ABG O2 Sat 99 03/30/19 03:15 ABG O2 Saturation 97.0 % (95.0-99.0) 04/01/19 Unknown PT/INR, D-dimer PT 21.0 Sec. (12.2-14.9) H 03/30/19 12:57 INR 1.86 (0.87-1.13) H 03/30/19 12:57 Abnormal lab findings: Abnormal Labs 03/29/19 03/29/19 03/29/19 19:20 19:20 19:20 WBC 26.7 H RBC 2.52 L Hgb 8.1 L Hct MCV 148 H MCH MCHC 22 L RDW 18.5 H Plt Count Seg Neuts % (Manual) 82.0 H Lymphocytes % (Manual) 7.0 L Nucleated RBC % Seg Neutrophils # Man 21.9 H Lymphocytes # (Manual) Monocytes # (Manual) 1.9 H PT 21.8 H INR 1.95 H APTT 74.5 H* POC ABG pH ABG pH POC ABG pO2 ABG pO2 ABG HCO3 ABG O2 Saturation ABG Base Excess ABG Hemoglobin VBG pH Oxyhemoglobin Sodium 118 L* Potassium 9.0 H* Chloride 64.5 L Carbon Dioxide 7 L* BUN 53 H Creatinine 2.1 H Glucose 2196 H* POC Glucose Lactic Acid Calcium 12.4 H* Phosphorus Magnesium Iron TIBC Direct Bilirubin AST 3900 H ALT 1034 H Alkaline Phosphatase 316 H Total Creatine Kinase CK-MB (CK-2) C-Reactive Protein Total Protein 5.1 L Albumin 2.8 L Vitamin B12 Salicylates Acetaminophen Crossmatch 03/29/19 03/29/19 03/29/19 19:47 20:59 22:45 WBC RBC Hgb Hct MCV MCH MCHC RDW Plt Count Seg Neuts % (Manual) Lymphocytes % (Manual) Nucleated RBC % Seg Neutrophils # Man Lymphocytes # (Manual) Monocytes # (Manual) PT INR APTT POC ABG pH 6.892 L ABG pH POC ABG pO2 236 H ABG pO2 ABG HCO3 ABG O2 Saturation ABG Base Excess ABG Hemoglobin VBG pH 6.800 L* Oxyhemoglobin Sodium 132 L D Potassium 7.0 H* Chloride 84.3 L Carbon Dioxide 3 L* BUN 48 H Creatinine 1.8 H Glucose 1779 H* POC Glucose Lactic Acid Calcium Phosphorus Magnesium Iron TIBC Direct Bilirubin AST ALT Alkaline Phosphatase Total Creatine Kinase CK-MB (CK-2) C-Reactive Protein Total Protein Albumin Vitamin B12 Salicylates Acetaminophen Crossmatch 03/29/19 03/29/19 03/29/19 22:45 22:45 Unknown WBC RBC Hgb Hct MCV MCH MCHC RDW Plt Count Seg Neuts % (Manual) Lymphocytes % (Manual) Nucleated RBC % Seg Neutrophils # Man Lymphocytes # (Manual) Monocytes # (Manual) PT INR APTT POC ABG pH ABG pH POC ABG pO2 ABG pO2 ABG HCO3 ABG O2 Saturation ABG Base Excess ABG Hemoglobin VBG pH Oxyhemoglobin Sodium Potassium Chloride Carbon Dioxide BUN Creatinine Glucose POC Glucose Lactic Acid Calcium Phosphorus 21.70 H 19.30 H Magnesium 4.70 H 3.90 H Iron TIBC Direct Bilirubin AST ALT Alkaline Phosphatase Total Creatine Kinase 363 H CK-MB (CK-2) C-Reactive Protein Total Protein Albumin Vitamin B12 Salicylates Acetaminophen Crossmatch 03/29/19 03/30/19 03/30/19 Unknown 00:11 00:11 WBC RBC Hgb Hct MCV MCH MCHC RDW Plt Count Seg Neuts % (Manual) Lymphocytes % (Manual) Nucleated RBC % Seg Neutrophils # Man Lymphocytes # (Manual) Monocytes # (Manual) PT INR APTT POC ABG pH ABG pH POC ABG pO2 ABG pO2 ABG HCO3 ABG O2 Saturation ABG Base Excess ABG Hemoglobin VBG pH Oxyhemoglobin Sodium 122 L Potassium 7.9 H* 6.4 H* Chloride 75.3 L 89.7 L Carbon Dioxide 3 L* 12 L D BUN 52 H 46 H Creatinine 2.0 H 1.7 H Glucose 2043 H* 1591 H* POC Glucose Lactic Acid Calcium 7.8 L Phosphorus 10.90 H D Magnesium 3.10 H Iron TIBC Direct Bilirubin AST ALT Alkaline Phosphatase Total Creatine Kinase CK-MB (CK-2) C-Reactive Protein Total Protein Albumin Vitamin B12 Salicylates Acetaminophen Crossmatch 03/30/19 03/30/19 03/30/19 02:14 02:14 03:15 WBC RBC Hgb Hct MCV MCH MCHC RDW Plt Count Seg Neuts % (Manual) Lymphocytes % (Manual) Nucleated RBC % Seg Neutrophils # Man Lymphocytes # (Manual) Monocytes # (Manual) PT INR APTT POC ABG pH 7.251 L ABG pH POC ABG pO2 156 H ABG pO2 ABG HCO3 ABG O2 Saturation ABG Base Excess ABG Hemoglobin VBG pH Oxyhemoglobin Sodium Potassium Chloride Carbon Dioxide 9 L* BUN 45 H Creatinine 1.7 H Glucose 1155 H* POC Glucose Lactic Acid Calcium 7.9 L Phosphorus 5.30 H D Magnesium 2.90 H Iron TIBC Direct Bilirubin AST ALT Alkaline Phosphatase Total Creatine Kinase CK-MB (CK-2) C-Reactive Protein Total Protein Albumin Vitamin B12 Salicylates Acetaminophen Crossmatch 03/30/19 03/30/19 03/30/19 03:30 04:23 05:26 WBC 18.0 H RBC 2.31 L Hgb 7.3 L Hct 23.8 L D MCV 103 H MCH MCHC RDW 17.1 H Plt Count Seg Neuts % (Manual) 79.0 H Lymphocytes % (Manual) Nucleated RBC % Seg Neutrophils # Man 14.2 H Lymphocytes # (Manual) Monocytes # (Manual) PT INR APTT POC ABG pH ABG pH POC ABG pO2 ABG pO2 ABG HCO3 ABG O2 Saturation ABG Base Excess ABG Hemoglobin VBG pH Oxyhemoglobin Sodium Potassium Chloride Carbon Dioxide BUN Creatinine Glucose POC Glucose Lactic Acid Calcium Phosphorus Magnesium 2.60 H Iron TIBC Direct Bilirubin AST ALT Alkaline Phosphatase Total Creatine Kinase 2465 H CK-MB (CK-2) 52.7 H C-Reactive Protein Total Protein Albumin Vitamin B12 Salicylates Acetaminophen Crossmatch See Detail 03/30/19 03/30/19 03/30/19 05:26 10:38 11:08 WBC RBC Hgb Hct MCV MCH MCHC RDW Plt Count Seg Neuts % (Manual) Lymphocytes % (Manual) Nucleated RBC % Seg Neutrophils # Man Lymphocytes # (Manual) Monocytes # (Manual) PT INR APTT POC ABG pH ABG pH POC ABG pO2 ABG pO2 ABG HCO3 ABG O2 Saturation ABG Base Excess ABG Hemoglobin VBG pH Oxyhemoglobin Sodium 158 H D Potassium 3.5 L Chloride 109.3 H Carbon Dioxide 19 L D BUN 40 H Creatinine 1.5 H Glucose 760 H* POC Glucose 380 H 263 H Lactic Acid Calcium 7.3 L Phosphorus Magnesium Iron TIBC Direct Bilirubin AST 01533 H ALT 2156 H Alkaline Phosphatase 271 H Total Creatine Kinase CK-MB (CK-2) C-Reactive Protein Total Protein 4.5 L Albumin 2.4 L Vitamin B12 Salicylates Acetaminophen Crossmatch 03/30/19 03/30/19 03/30/19 12:25 12:57 12:57 WBC RBC Hgb Hct MCV MCH MCHC RDW Plt Count Seg Neuts % (Manual) Lymphocytes % (Manual) Nucleated RBC % Seg Neutrophils # Man Lymphocytes # (Manual) Monocytes # (Manual) PT 21.0 H INR 1.86 H APTT POC ABG pH ABG pH POC ABG pO2 ABG pO2 ABG HCO3 ABG O2 Saturation ABG Base Excess ABG Hemoglobin VBG pH Oxyhemoglobin Sodium 156 H Potassium 3.2 L Chloride 116.4 H Carbon Dioxide 21 L BUN 37 H Creatinine Glucose 162 H POC Glucose 196 H Lactic Acid Calcium 7.2 L Phosphorus Magnesium Iron TIBC Direct Bilirubin AST ALT Alkaline Phosphatase Total Creatine Kinase CK-MB (CK-2) C-Reactive Protein Total Protein Albumin Vitamin B12 Salicylates Acetaminophen Crossmatch 03/30/19 03/30/19 03/30/19 12:57 12:57 13:23 WBC RBC Hgb Hct MCV MCH MCHC RDW Plt Count Seg Neuts % (Manual) Lymphocytes % (Manual) Nucleated RBC % Seg Neutrophils # Man Lymphocytes # (Manual) Monocytes # (Manual) PT INR APTT POC ABG pH ABG pH POC ABG pO2 ABG pO2 ABG HCO3 ABG O2 Saturation ABG Base Excess ABG Hemoglobin VBG pH Oxyhemoglobin Sodium Potassium Chloride Carbon Dioxide BUN Creatinine Glucose POC Glucose 176 H Lactic Acid 9.00 H* Calcium Phosphorus Magnesium Iron TIBC Direct Bilirubin AST ALT Alkaline Phosphatase Total Creatine Kinase CK-MB (CK-2) C-Reactive Protein 2.40 H Total Protein Albumin Vitamin B12 Salicylates Acetaminophen Crossmatch 03/30/19 03/30/19 03/30/19 14:47 16:11 17:11 WBC RBC Hgb Hct MCV MCH MCHC RDW Plt Count Seg Neuts % (Manual) Lymphocytes % (Manual) Nucleated RBC % Seg Neutrophils # Man Lymphocytes # (Manual) Monocytes # (Manual) PT INR APTT POC ABG pH ABG pH POC ABG pO2 ABG pO2 ABG HCO3 ABG O2 Saturation ABG Base Excess ABG Hemoglobin VBG pH Oxyhemoglobin Sodium Potassium Chloride Carbon Dioxide BUN Creatinine Glucose POC Glucose 245 H 181 H 167 H Lactic Acid Calcium Phosphorus Magnesium Iron TIBC Direct Bilirubin AST ALT Alkaline Phosphatase Total Creatine Kinase CK-MB (CK-2) C-Reactive Protein Total Protein Albumin Vitamin B12 Salicylates Acetaminophen Crossmatch 03/30/19 03/30/19 03/30/19 17:46 18:59 21:31 WBC RBC Hgb Hct MCV MCH MCHC RDW Plt Count Seg Neuts % (Manual) Lymphocytes % (Manual) Nucleated RBC % Seg Neutrophils # Man Lymphocytes # (Manual) Monocytes # (Manual) PT INR APTT POC ABG pH ABG pH POC ABG pO2 ABG pO2 ABG HCO3 ABG O2 Saturation ABG Base Excess ABG Hemoglobin VBG pH Oxyhemoglobin Sodium Potassium Chloride Carbon Dioxide BUN Creatinine Glucose POC Glucose 125 H 140 H 166 H Lactic Acid Calcium Phosphorus Magnesium Iron TIBC Direct Bilirubin AST ALT Alkaline Phosphatase Total Creatine Kinase CK-MB (CK-2) C-Reactive Protein Total Protein Albumin Vitamin B12 Salicylates Acetaminophen Crossmatch 03/30/19 03/30/19 03/30/19 22:19 23:13 Unknown WBC RBC Hgb Hct MCV MCH MCHC RDW Plt Count Seg Neuts % (Manual) Lymphocytes % (Manual) Nucleated RBC % Seg Neutrophils # Man Lymphocytes # (Manual) Monocytes # (Manual) PT INR APTT POC ABG pH ABG pH POC ABG pO2 ABG pO2 ABG HCO3 ABG O2 Saturation ABG Base Excess ABG Hemoglobin VBG pH Oxyhemoglobin Sodium 157 H Potassium 3.3 L Chloride 117.9 H Carbon Dioxide 20 L BUN 36 H Creatinine Glucose 150 H POC Glucose 115 H 112 H Lactic Acid Calcium 7.2 L Phosphorus Magnesium Iron TIBC Direct Bilirubin AST ALT Alkaline Phosphatase Total Creatine Kinase CK-MB (CK-2) C-Reactive Protein Total Protein Albumin Vitamin B12 Salicylates Acetaminophen Crossmatch 03/30/19 03/30/19 03/30/19 Unknown Unknown Unknown WBC RBC Hgb Hct MCV MCH MCHC RDW Plt Count Seg Neuts % (Manual) Lymphocytes % (Manual) Nucleated RBC % Seg Neutrophils # Man Lymphocytes # (Manual) Monocytes # (Manual) PT INR APTT POC ABG pH ABG pH POC ABG pO2 ABG pO2 47.8 L ABG HCO3 18.8 L ABG O2 Saturation 83.8 L ABG Base Excess -5.4 L ABG Hemoglobin 6.8 L VBG pH Oxyhemoglobin 81.8 L Sodium Potassium Chloride Carbon Dioxide BUN Creatinine Glucose POC Glucose Lactic Acid Calcium Phosphorus Magnesium Iron TIBC Direct Bilirubin AST ALT Alkaline Phosphatase Total Creatine Kinase CK-MB (CK-2) C-Reactive Protein Total Protein Albumin Vitamin B12 Salicylates 0.8 L Acetaminophen < 5.0 L Crossmatch 03/31/19 03/31/19 03/31/19 00:03 01:18 03:07 WBC RBC Hgb Hct MCV MCH MCHC RDW Plt Count Seg Neuts % (Manual) Lymphocytes % (Manual) Nucleated RBC % Seg Neutrophils # Man Lymphocytes # (Manual) Monocytes # (Manual) PT INR APTT POC ABG pH ABG pH POC ABG pO2 ABG pO2 ABG HCO3 ABG O2 Saturation ABG Base Excess ABG Hemoglobin VBG pH Oxyhemoglobin Sodium Potassium Chloride Carbon Dioxide BUN Creatinine Glucose POC Glucose 188 H 114 H 107 H Lactic Acid Calcium Phosphorus Magnesium Iron TIBC Direct Bilirubin AST ALT Alkaline Phosphatase Total Creatine Kinase CK-MB (CK-2) C-Reactive Protein Total Protein Albumin Vitamin B12 Salicylates Acetaminophen Crossmatch 03/31/19 03/31/19 03/31/19 03:50 03:51 03:51 WBC RBC 1.89 L Hgb 6.1 L Hct 18.2 L* MCV MCH MCHC RDW 17.7 H Plt Count 89 L Seg Neuts % (Manual) 86.0 H Lymphocytes % (Manual) 10.0 L Nucleated RBC % 1.0 H Seg Neutrophils # Man Lymphocytes # (Manual) 0.7 L Monocytes # (Manual) PT INR APTT POC ABG pH ABG pH 7.525 H POC ABG pO2 ABG pO2 178.0 H ABG HCO3 19.5 L ABG O2 Saturation 99.2 H ABG Base Excess -3.1 L ABG Hemoglobin 5.8 L VBG pH Oxyhemoglobin Sodium 151 H Potassium 3.2 L Chloride 119.4 H Carbon Dioxide 17 L BUN 35 H Creatinine Glucose 139 H POC Glucose Lactic Acid Calcium 7.1 L Phosphorus Magnesium Iron TIBC Direct Bilirubin AST ALT Alkaline Phosphatase Total Creatine Kinase CK-MB (CK-2) C-Reactive Protein Total Protein Albumin Vitamin B12 Salicylates Acetaminophen Crossmatch 03/31/19 03/31/19 03/31/19 04:05 05:05 05:35 WBC RBC Hgb Hct MCV MCH MCHC RDW Plt Count Seg Neuts % (Manual) Lymphocytes % (Manual) Nucleated RBC % Seg Neutrophils # Man Lymphocytes # (Manual) Monocytes # (Manual) PT INR APTT POC ABG pH ABG pH POC ABG pO2 ABG pO2 ABG HCO3 ABG O2 Saturation ABG Base Excess ABG Hemoglobin VBG pH Oxyhemoglobin Sodium Potassium Chloride Carbon Dioxide BUN Creatinine Glucose POC Glucose 153 H 176 H Lactic Acid 3.20 H* Calcium Phosphorus Magnesium Iron TIBC Direct Bilirubin AST ALT Alkaline Phosphatase Total Creatine Kinase CK-MB (CK-2) C-Reactive Protein Total Protein Albumin Vitamin B12 Salicylates Acetaminophen Crossmatch 03/31/19 03/31/19 03/31/19 06:23 07:50 07:51 WBC RBC Hgb Hct MCV MCH MCHC RDW Plt Count Seg Neuts % (Manual) Lymphocytes % (Manual) Nucleated RBC % Seg Neutrophils # Man Lymphocytes # (Manual) Monocytes # (Manual) PT INR APTT POC ABG pH ABG pH POC ABG pO2 ABG pO2 ABG HCO3 ABG O2 Saturation ABG Base Excess ABG Hemoglobin VBG pH Oxyhemoglobin Sodium Potassium Chloride Carbon Dioxide BUN Creatinine Glucose POC Glucose 133 H 135 H Lactic Acid 3.30 H* Calcium Phosphorus Magnesium Iron TIBC Direct Bilirubin AST ALT Alkaline Phosphatase Total Creatine Kinase CK-MB (CK-2) C-Reactive Protein Total Protein Albumin Vitamin B12 Salicylates Acetaminophen Crossmatch 03/31/19 03/31/19 03/31/19 08:20 08:20 08:20 WBC RBC Hgb Hct MCV MCH MCHC RDW Plt Count Seg Neuts % (Manual) Lymphocytes % (Manual) Nucleated RBC % Seg Neutrophils # Man Lymphocytes # (Manual) Monocytes # (Manual) PT INR APTT POC ABG pH ABG pH POC ABG pO2 ABG pO2 ABG HCO3 ABG O2 Saturation ABG Base Excess ABG Hemoglobin VBG pH Oxyhemoglobin Sodium 153 H Potassium 3.0 L Chloride 118.9 H Carbon Dioxide 18 L BUN 37 H Creatinine Glucose 132 H POC Glucose Lactic Acid Calcium 7.1 L Phosphorus Magnesium Iron 26 L TIBC 193 L Direct Bilirubin AST ALT Alkaline Phosphatase Total Creatine Kinase CK-MB (CK-2) C-Reactive Protein Total Protein Albumin Vitamin B12 > 2000 H Salicylates Acetaminophen Crossmatch 03/31/19 03/31/19 03/31/19 09:06 10:47 11:49 WBC RBC Hgb Hct MCV MCH MCHC RDW Plt Count Seg Neuts % (Manual) Lymphocytes % (Manual) Nucleated RBC % Seg Neutrophils # Man Lymphocytes # (Manual) Monocytes # (Manual) PT INR APTT POC ABG pH ABG pH POC ABG pO2 ABG pO2 ABG HCO3 ABG O2 Saturation ABG Base Excess ABG Hemoglobin VBG pH Oxyhemoglobin Sodium Potassium Chloride Carbon Dioxide BUN Creatinine Glucose POC Glucose 145 H 153 H 174 H Lactic Acid Calcium Phosphorus Magnesium Iron TIBC Direct Bilirubin AST ALT Alkaline Phosphatase Total Creatine Kinase CK-MB (CK-2) C-Reactive Protein Total Protein Albumin Vitamin B12 Salicylates Acetaminophen Crossmatch 03/31/19 03/31/19 03/31/19 13:04 13:42 15:08 WBC RBC Hgb Hct MCV MCH MCHC RDW Plt Count Seg Neuts % (Manual) Lymphocytes % (Manual) Nucleated RBC % Seg Neutrophils # Man Lymphocytes # (Manual) Monocytes # (Manual) PT INR APTT POC ABG pH ABG pH POC ABG pO2 ABG pO2 ABG HCO3 ABG O2 Saturation ABG Base Excess ABG Hemoglobin VBG pH Oxyhemoglobin Sodium Potassium Chloride Carbon Dioxide BUN Creatinine Glucose POC Glucose 214 H 186 H 136 H Lactic Acid Calcium Phosphorus Magnesium Iron TIBC Direct Bilirubin AST ALT Alkaline Phosphatase Total Creatine Kinase CK-MB (CK-2) C-Reactive Protein Total Protein Albumin Vitamin B12 Salicylates Acetaminophen Crossmatch 03/31/19 03/31/19 03/31/19 16:08 17:11 17:30 WBC RBC Hgb Hct MCV MCH MCHC RDW Plt Count Seg Neuts % (Manual) Lymphocytes % (Manual) Nucleated RBC % Seg Neutrophils # Man Lymphocytes # (Manual) Monocytes # (Manual) PT INR APTT POC ABG pH ABG pH POC ABG pO2 ABG pO2 ABG HCO3 ABG O2 Saturation ABG Base Excess ABG Hemoglobin VBG pH Oxyhemoglobin Sodium 153 H Potassium 3.5 L Chloride 119.3 H Carbon Dioxide 20 L BUN 34 H Creatinine Glucose 162 H POC Glucose 150 H 140 H Lactic Acid Calcium 7.6 L Phosphorus Magnesium Iron TIBC Direct Bilirubin AST ALT Alkaline Phosphatase Total Creatine Kinase CK-MB (CK-2) C-Reactive Protein Total Protein Albumin Vitamin B12 Salicylates Acetaminophen Crossmatch 03/31/19 03/31/19 03/31/19 17:30 17:59 18:58 WBC RBC Hgb 7.7 L Hct 23.0 L MCV MCH MCHC RDW Plt Count Seg Neuts % (Manual) Lymphocytes % (Manual) Nucleated RBC % Seg Neutrophils # Man Lymphocytes # (Manual) Monocytes # (Manual) PT INR APTT POC ABG pH ABG pH POC ABG pO2 ABG pO2 ABG HCO3 ABG O2 Saturation ABG Base Excess ABG Hemoglobin VBG pH Oxyhemoglobin Sodium Potassium Chloride Carbon Dioxide BUN Creatinine Glucose POC Glucose 156 H 152 H Lactic Acid Calcium Phosphorus Magnesium Iron TIBC Direct Bilirubin AST ALT Alkaline Phosphatase Total Creatine Kinase CK-MB (CK-2) C-Reactive Protein Total Protein Albumin Vitamin B12 Salicylates Acetaminophen Crossmatch 03/31/19 03/31/19 03/31/19 20:28 21:09 22:15 WBC RBC Hgb Hct MCV MCH MCHC RDW Plt Count Seg Neuts % (Manual) Lymphocytes % (Manual) Nucleated RBC % Seg Neutrophils # Man Lymphocytes # (Manual) Monocytes # (Manual) PT INR APTT POC ABG pH ABG pH POC ABG pO2 ABG pO2 ABG HCO3 ABG O2 Saturation ABG Base Excess ABG Hemoglobin VBG pH Oxyhemoglobin Sodium Potassium Chloride Carbon Dioxide BUN Creatinine Glucose POC Glucose 138 H 136 H 137 H Lactic Acid Calcium Phosphorus Magnesium Iron TIBC Direct Bilirubin AST ALT Alkaline Phosphatase Total Creatine Kinase CK-MB (CK-2) C-Reactive Protein Total Protein Albumin Vitamin B12 Salicylates Acetaminophen Crossmatch 03/31/19 04/01/19 04/01/19 23:10 00:05 01:17 WBC RBC Hgb Hct MCV MCH MCHC RDW Plt Count Seg Neuts % (Manual) Lymphocytes % (Manual) Nucleated RBC % Seg Neutrophils # Man Lymphocytes # (Manual) Monocytes # (Manual) PT INR APTT POC ABG pH ABG pH POC ABG pO2 ABG pO2 ABG HCO3 ABG O2 Saturation ABG Base Excess ABG Hemoglobin VBG pH Oxyhemoglobin Sodium Potassium Chloride Carbon Dioxide BUN Creatinine Glucose POC Glucose 148 H 143 H 151 H Lactic Acid Calcium Phosphorus Magnesium Iron TIBC Direct Bilirubin AST ALT Alkaline Phosphatase Total Creatine Kinase CK-MB (CK-2) C-Reactive Protein Total Protein Albumin Vitamin B12 Salicylates Acetaminophen Crossmatch 04/01/19 04/01/19 04/01/19 02:11 03:12 04:03 WBC RBC Hgb Hct MCV MCH MCHC RDW Plt Count Seg Neuts % (Manual) Lymphocytes % (Manual) Nucleated RBC % Seg Neutrophils # Man Lymphocytes # (Manual) Monocytes # (Manual) PT INR APTT POC ABG pH ABG pH POC ABG pO2 ABG pO2 ABG HCO3 ABG O2 Saturation ABG Base Excess ABG Hemoglobin VBG pH Oxyhemoglobin Sodium Potassium Chloride Carbon Dioxide BUN Creatinine Glucose POC Glucose 155 H 140 H 143 H Lactic Acid Calcium Phosphorus Magnesium Iron TIBC Direct Bilirubin AST ALT Alkaline Phosphatase Total Creatine Kinase CK-MB (CK-2) C-Reactive Protein Total Protein Albumin Vitamin B12 Salicylates Acetaminophen Crossmatch 04/01/19 04/01/19 04/01/19 04:16 05:01 05:01 WBC RBC 2.05 L Hgb 6.8 L Hct 20.5 L MCV 100 H MCH 33 H MCHC RDW 17.7 H Plt Count 53 L Seg Neuts % (Manual) 71.0 H Lymphocytes % (Manual) Nucleated RBC % Seg Neutrophils # Man Lymphocytes # (Manual) Monocytes # (Manual) PT INR APTT POC ABG pH ABG pH POC ABG pO2 ABG pO2 ABG HCO3 ABG O2 Saturation ABG Base Excess ABG Hemoglobin VBG pH Oxyhemoglobin Sodium Potassium Chloride Carbon Dioxide BUN Creatinine Glucose POC Glucose 142 H Lactic Acid Calcium Phosphorus Magnesium Iron TIBC Direct Bilirubin 0.3 H AST 4601 H ALT 1542 H Alkaline Phosphatase 185 H Total Creatine Kinase CK-MB (CK-2) C-Reactive Protein Total Protein 3.8 L Albumin 1.6 L Vitamin B12 Salicylates Acetaminophen Crossmatch 04/01/19 04/01/19 04/01/19 05:08 05:23 06:37 WBC RBC Hgb Hct MCV MCH MCHC RDW Plt Count Seg Neuts % (Manual) Lymphocytes % (Manual) Nucleated RBC % Seg Neutrophils # Man Lymphocytes # (Manual) Monocytes # (Manual) PT INR APTT POC ABG pH ABG pH POC ABG pO2 ABG pO2 ABG HCO3 ABG O2 Saturation ABG Base Excess ABG Hemoglobin VBG pH Oxyhemoglobin Sodium Potassium Chloride Carbon Dioxide BUN Creatinine Glucose POC Glucose 119 H 115 H 124 H Lactic Acid Calcium Phosphorus Magnesium Iron TIBC Direct Bilirubin AST ALT Alkaline Phosphatase Total Creatine Kinase CK-MB (CK-2) C-Reactive Protein Total Protein Albumin Vitamin B12 Salicylates Acetaminophen Crossmatch 04/01/19 04/01/19 04/01/19 08:15 09:50 10:10 WBC RBC Hgb 6.5 L Hct 19.2 L* MCV MCH MCHC RDW Plt Count Seg Neuts % (Manual) Lymphocytes % (Manual) Nucleated RBC % Seg Neutrophils # Man Lymphocytes # (Manual) Monocytes # (Manual) PT INR APTT POC ABG pH ABG pH POC ABG pO2 ABG pO2 ABG HCO3 ABG O2 Saturation ABG Base Excess ABG Hemoglobin VBG pH Oxyhemoglobin Sodium 149 H Potassium 3.5 L Chloride 119.9 H Carbon Dioxide 21 L BUN 33 H Creatinine 0.5 L Glucose 142 H POC Glucose 138 H Lactic Acid Calcium 7.3 L Phosphorus Magnesium Iron TIBC Direct Bilirubin AST 3686 H ALT 1440 H Alkaline Phosphatase 185 H Total Creatine Kinase CK-MB (CK-2) C-Reactive Protein Total Protein 3.7 L Albumin 1.8 L Vitamin B12 Salicylates Acetaminophen Crossmatch 04/01/19 04/01/19 04/01/19 10:31 11:35 13:05 WBC RBC Hgb Hct MCV MCH MCHC RDW Plt Count Seg Neuts % (Manual) Lymphocytes % (Manual) Nucleated RBC % Seg Neutrophils # Man Lymphocytes # (Manual) Monocytes # (Manual) PT INR APTT POC ABG pH ABG pH POC ABG pO2 ABG pO2 ABG HCO3 ABG O2 Saturation ABG Base Excess ABG Hemoglobin VBG pH Oxyhemoglobin Sodium Potassium Chloride Carbon Dioxide BUN Creatinine Glucose POC Glucose 185 H 201 H 169 H Lactic Acid Calcium Phosphorus Magnesium Iron TIBC Direct Bilirubin AST ALT Alkaline Phosphatase Total Creatine Kinase CK-MB (CK-2) C-Reactive Protein Total Protein Albumin Vitamin B12 Salicylates Acetaminophen Crossmatch 04/01/19 Unknown WBC RBC Hgb Hct MCV MCH MCHC RDW Plt Count Seg Neuts % (Manual) Lymphocytes % (Manual) Nucleated RBC % Seg Neutrophils # Man Lymphocytes # (Manual) Monocytes # (Manual) PT INR APTT POC ABG pH ABG pH POC ABG pO2 ABG pO2 78.3 L ABG HCO3 ABG O2 Saturation ABG Base Excess -3.5 L ABG Hemoglobin 6.8 L VBG pH Oxyhemoglobin 94.3 L Sodium Potassium Chloride Carbon Dioxide BUN Creatinine Glucose POC Glucose Lactic Acid Calcium Phosphorus Magnesium Iron TIBC Direct Bilirubin AST ALT Alkaline Phosphatase Total Creatine Kinase CK-MB (CK-2) C-Reactive Protein Total Protein Albumin Vitamin B12 Salicylates Acetaminophen Crossmatch Chest x-ray: image reviewed (left mid-lung infiltrate) Allied health notes reviewed: nursing
[2019-04-01] MEDS ORDERED: PERMETHRIN 5% TP ONE (13:53)
[2019-04-01 17:32] LABS: INR 1.1 (0.87-1.13)
[2019-04-01] MEDS ORDERED: SIMPLE SYRUP FEEDTUBE PRN ×2 (18:09)
[2019-04-01] MEDS ORDERED: SODIUM BICARBONATE FEEDTUBE PRN (18:09)
[2019-04-01] MEDS ORDERED: PANCREAZE DR 10,500 UNIT FEEDTUBE PRN (18:09)
[2019-04-01] MEDS: NACL 0.45% 1000 ML 1,000 ML IV SCH (19:30)
[2019-04-01] MEDS: HumuLIN R SUB-Q SCH ×2 (19:41→23:19)
[2019-04-01] MEDS: TYLENOL PO PRN (23:38)
[2019-04-02] MEDS: HumuLIN R SUB-Q SCH ×6 (03:48→23:19)
--- NOTE | 2019-04-02 04:02 | XRay Report ---
CHEST 1 VIEW [id number] INDICATION / CLINICAL INFORMATION: follow up respiratory failure. COMPARISON: 04/01/2019 FINDINGS: SUPPORT DEVICES: Stable HEART / MEDIASTINUM: Stable LUNGS / PLEURA: Patchy infiltrate in the left lung is again seen with mild improvement. No pneumothor ax. ADDITIONAL FINDINGS: No significant additional findings. IMPRESSION: Mild improvement Signer Name: Jair Woo MD Signed: 04/02/2019 3:58 AM Workstation Name: [id number]
[2019-04-02] MEDS: Vasostrict 20 UNIT in NACL 0.9% 100 ML IV SCH (04:32)
[2019-04-02] MEDS: NACL 0.45% 1000 ML 1,000 ML IV SCH (04:33)
[2019-04-02 04:45] LABS: ABG Base Excess -8.2 mmol/L (-2.0-3.0); ABG HCO3 15.5 mmol/L (20.0-26.0); ABG Methemoglobin 0.6 % (0.0-1.5); ABG Oxygen Saturation 98.8 % (95.0-99.0); ABG PCO2 25.1 mm Hg; ABG PH 7.407 pH Units (7.350-7.450); ABG PO2 142.8 mm Hg (80.0-90.0)
[2019-04-02] MEDS: FLAGYL 500 MG/100 ML 500 MG/100 ML BAG IV SCH ×3 (05:39→21:36)
[2019-04-02] MEDS: CEFEPIME/NS 2 GM/100 ML 2 GM/100 ML BAG IV SCH ×3 (05:39→21:27)
[2019-04-02 08:20] LABS: Hematocrit 25.1 % (30.3-42.9); Hemoglobin 8.6 gm/dl (10.1-14.3); Mean Corpuscular HGB Conc 34 % (30-34); Mean Corpuscular Volume 95 fl (79-97); Red Blood Count 2.65 M/mm3 (3.65-5.03); Red Cell Distribution Width 17.6 % (13.2-15.2)
[2019-04-02 08:24] LABS: Platelet Count 48 K/mm3 (140-440)
[2019-04-02 08:42] LABS: BUN/Creatinine Ratio 58; Blood Urea Nitrogen 29 mg/dL (7-17); Calcium 7.5 mg/dL (8.4-10.2); Hemolysis Index 8
[2019-04-02 08:54] LABS: Albumin 2.1 g/dL (3.9-5); Bilirubin,Direct 0.2 mg/dL (0-0.2)
[2019-04-02] MEDS ORDERED: POTASSIUM CHLORIDE FEEDTUBE ONE (09:00)
[2019-04-02 09:21] LABS: Alanine Aminotransferase 1134 units/L (7-56)
[2019-04-02] MEDS: KEPPRA 500 MG in D5W 100 ML IV SCH ×2 (10:06→22:30)
[2019-04-02] MEDS: PEPCID PO SCH ×2 (10:06→21:27)
--- NOTE | 2019-04-02 11:43 | Progress Note ---
Assessment and Plan Acute respiratory failure - on vent, cont nebs, CC consulted Acute encephalopathy, POA - CT head negative - likely from cardiac arrest - consulted neurology Cardiac arrest s/p resuscitation - likely 2/2 severe hyperglycemia - preserved EF onb2d echo DKA, severe - BG was >2200 on admission - s/p insulin drip. cont iv fluid - monitor BG q4h, on TF and on subqu insulin - adjust dose as needed Shock hypotensive vs sepsis - cont iv fluid, s/p pressor support - follow Cx result, cont abx - weaned off pressor as tolerated Sepsis with possible aspiration PNA - evident on CXR on admission with left sided infiltrates - cont abx per ID Acute renal failure, likely vasomotor nephropathy - resolved - cont iv fluid, monitor BMP Anemia, acute on chronic - no sign of blood loss - dropped upto 6.1 transfused total 2 units Hyperkalemia, resolved with fluid and insulin hypokalemia, replete as needed, monitor BMP Shock liver with elevated LFT and Coagulopathy - due to cardiac arrest and hypotension - cont to monitor Hypermagnesemia Hyperphosphatemia - cont to monitor, improved DVT Px, heparin The high probability of a clinically significant, sudden or life threatening deterioration of the [multiple] system(s) required my full and direct attention, intervention and personal management. The aggregate critical care time was [35] minutes. This time is in addition to time spent performing reported procedures but includes the following: [x] Data Review and interpretation [x] Patient assessment and monitoring of vital signs [x] Documentation [x] Medication orders and management Brief History: 28 year old woman with a history of diabetes was brought to the emergency room following a cardiac arrest on spot. Her last well-known time was 10:30 in the morning, she was traveling with a friend, she was unresponsive in the back seat. EMS was called, CPR was started and continued here in the emergency room. Patient was intubated in the ER, noted hypotensive started on dobutamine, epinephrine and Levophed drip, given IV fluids, found to be in DKA with BG ~2200, several metabolic derangements - placed on insulin drip and admitted to ICU. Subjective Date of service: 04/02/19 Principal diagnosis: Ac Hypoxemic Resp Failure; DKA; Severe sepsis with shock; ANGELICA Interval history: Patient seen and examined Patient remained intubated, off pressors no family members around, off sedation discussed with RN at bedside with plan of care Objective - Exam Narrative Exam: General appearance: Present: disheveled, other (intubated, sedated) - EENT Eyes: no congestion ENT: hearing intact, clear oral mucosa Ears: bilateral: normal - Neck Neck: no masses or JVD, no carotid bruits - Respiratory Respiratory effort: other (on mechanical ventilation) Respiratory: bilateral: CTA - Cardiovascular Rhythm: other (tachycardic) Heart Sounds: Present: S1 & S2. Absent: gallop, rub Extremities: pulses intact, No edema, normal color - Gastrointestinal General gastrointestinal: Present: soft, non-distended, normal bowel sounds - Integumentary Integumentary: clear, warm, dry - Musculoskeletal Musculoskeletal: other (no joint swelling) - Neurologic Neurologic: other (unable to assess), does not follow commend - Psychiatric Psychiatric: other (unable to assess) - Constitutional Vitals: Vital Signs - 12hr 04/01/19 04/02/19 04/02/19 23:45 00:00 00:15 Temperature Pulse Rate 108 H 102 H 102 H Pulse Rate [ 104 H From Monitor] Respiratory 26 H 25 H 24 Rate Blood Pressure 119/80 109/74 112/73 O2 Sat by Pulse 98 98 98 Oximetry 04/02/19 04/02/19 04/02/19 00:30 00:45 00:47 Temperature Pulse Rate 103 H 102 H 100 H Pulse Rate [ From Monitor] Respiratory 24 25 H Rate Blood Pressure 107/72 112/74 112/74 O2 Sat by Pulse 97 98 99 Oximetry 04/02/19 04/02/19 04/02/19 01:00 01:15 01:30 Temperature Pulse Rate 102 H 109 H 95 H Pulse Rate [ From Monitor] Respiratory 30 H 32 H 24 Rate Blood Pressure 118/77 117/81 112/76 O2 Sat by Pulse 98 99 98 Oximetry 04/02/19 04/02/19 04/02/19 01:45 02:01 02:15 Temperature Pulse Rate 98 H 109 H 114 H Pulse Rate [ From Monitor] Respiratory 25 H 37 H 25 H Rate Blood Pressure 114/74 136/88 110/81 O2 Sat by Pulse 97 96 98 Oximetry 04/02/19 04/02/19 04/02/19 02:30 02:45 03:00 Temperature Pulse Rate 90 89 88 Pulse Rate [ From Monitor] Respiratory 20 14 23 Rate Blood Pressure 104/63 99/62 97/68 O2 Sat by Pulse 97 98 98 Oximetry 04/02/19 04/02/19 04/02/19 03:15 03:30 03:45 Temperature Pulse Rate 87 86 85 Pulse Rate [ From Monitor] Respiratory 22 21 21 Rate Blood Pressure 101/66 97/70 101/69 O2 Sat by Pulse Oximetry 04/02/19 04/02/19 04/02/19 03:51 04:00 04:15 Temperature 99.1 F Pulse Rate 85 86 93 H Pulse Rate [ 85 From Monitor] Respiratory 20 20 Rate Blood Pressure 101/69 98/68 96/66 O2 Sat by Pulse 100 100 Oximetry 04/02/19 04/02/19 04/02/19 04:30 04:45 05:00 Temperature Pulse Rate 93 H 90 90 Pulse Rate [ From Monitor] Respiratory 22 17 23 Rate Blood Pressure 96/64 98/67 101/69 O2 Sat by Pulse Oximetry 04/02/19 04/02/19 04/02/19 05:15 05:30 05:45 Temperature Pulse Rate 94 H 90 100 H Pulse Rate [ From Monitor] Respiratory 25 H 21 30 H Rate Blood Pressure 100/73 101/70 107/78 O2 Sat by Pulse 99 99 Oximetry 04/02/19 04/02/19 04/02/19 06:00 06:15 06:30 Temperature Pulse Rate 88 86 88 Pulse Rate [ From Monitor] Respiratory 20 19 20 Rate Blood Pressure 99/70 99/66 99/70 O2 Sat by Pulse 98 Oximetry 04/02/19 04/02/19 04/02/19 06:45 07:00 07:15 Temperature Pulse Rate 85 95 H 84 Pulse Rate [ From Monitor] Respiratory 20 25 H 21 Rate Blood Pressure 97/68 103/76 99/67 O2 Sat by Pulse 100 Oximetry 04/02/19 04/02/19 04/02/19 07:30 07:36 07:45 Temperature Pulse Rate 91 H 107 H 84 Pulse Rate [ From Monitor] Respiratory 25 H 21 Rate Blood Pressure 105/74 105/74 103/74 O2 Sat by Pulse 100 Oximetry 04/02/19 04/02/19 04/02/19 08:00 08:15 08:30 Temperature Pulse Rate 95 H 102 H 99 H Pulse Rate [ From Monitor] Respiratory 22 25 H 22 Rate Blood Pressure 103/68 105/66 99/57 O2 Sat by Pulse 100 Oximetry 04/02/19 04/02/19 04/02/19 08:45 09:00 09:15 Temperature Pulse Rate 99 H 99 H 106 H Pulse Rate [ From Monitor] Respiratory 16 23 28 H Rate Blood Pressure 98/59 99/59 103/63 O2 Sat by Pulse Oximetry 04/02/19 04/02/19 04/02/19 09:30 09:45 10:00 Temperature Pulse Rate 99 H 100 H 102 H Pulse Rate [ From Monitor] Respiratory 21 22 25 H Rate Blood Pressure 99/56 102/61 108/64 O2 Sat by Pulse 100 Oximetry 04/02/19 04/02/19 04/02/19 10:15 10:30 10:45 Temperature Pulse Rate 122 H 102 H 110 H Pulse Rate [ From Monitor] Respiratory 38 H 22 28 H Rate Blood Pressure 118/78 112/54 119/68 O2 Sat by Pulse 100 Oximetry 04/02/19 11:01 Temperature Pulse Rate 130 H Pulse Rate [ From Monitor] Respiratory 39 H Rate Blood Pressure 134/89 O2 Sat by Pulse 100 Oximetry - Labs CBC & Chem 7: 04/02/19 07:48 04/02/19 07:48 Labs: Abnormal lab results 03/30/19 03/30/19 04/01/19 Range/Units 03:30 14:00 11:35 RBC (3.65-5.03) M/mm3 Hgb (10.1-14.3) gm/dl Hct (30.3-42.9) % RDW (13.2-15.2) % Plt Count (140-440) K/mm3 D-Dimer (0-234) ng/mlDDU ABG pO2 (80.0-90.0) mm Hg ABG HCO3 (20.0-26.0) mmol/L ABG Base Excess (-2.0-3.0) mmol/L ABG Hemoglobin (12.0-16.0) gm/dl Potassium (3.6-5.0) mmol/L Chloride (98-107) mmol/L Carbon Dioxide (22-30) mmol/L BUN (7-17) mg/dL Creatinine (0.7-1.2) mg/dL Glucose (65-100) mg/dL POC Glucose 201 H (70-105) Calcium (8.4-10.2) mg/dL AST (5-40) units/L ALT (7-56) units/L Alkaline Phosphatase (35-129) units/L Total Protein (6.3-8.2) g/dL Albumin (3.9-5) g/dL Miscellaneous Test Flexitest 1 H Crossmatch See Detail 04/01/19 04/01/19 04/01/19 Range/Units 13:05 14:35 17:13 RBC (3.65-5.03) M/mm3 Hgb (10.1-14.3) gm/dl Hct (30.3-42.9) % RDW (13.2-15.2) % Plt Count (140-440) K/mm3 D-Dimer (0-234) ng/mlDDU ABG pO2 (80.0-90.0) mm Hg ABG HCO3 (20.0-26.0) mmol/L ABG Base Excess (-2.0-3.0) mmol/L ABG Hemoglobin (12.0-16.0) gm/dl Potassium (3.6-5.0) mmol/L Chloride (98-107) mmol/L Carbon Dioxide (22-30) mmol/L BUN (7-17) mg/dL Creatinine (0.7-1.2) mg/dL Glucose (65-100) mg/dL POC Glucose 169 H 134 H 69 L (70-105) Calcium (8.4-10.2) mg/dL AST (5-40) units/L ALT (7-56) units/L Alkaline Phosphatase (35-129) units/L Total Protein (6.3-8.2) g/dL Albumin (3.9-5) g/dL Miscellaneous Test Crossmatch 04/01/19 04/01/19 04/01/19 Range/Units 17:14 18:30 22:50 RBC (3.65-5.03) M/mm3 Hgb (10.1-14.3) gm/dl Hct (30.3-42.9) % RDW (13.2-15.2) % Plt Count (140-440) K/mm3 D-Dimer 5203.68 H (0-234) ng/mlDDU ABG pO2 (80.0-90.0) mm Hg ABG HCO3 (20.0-26.0) mmol/L ABG Base Excess (-2.0-3.0) mmol/L ABG Hemoglobin (12.0-16.0) gm/dl Potassium (3.6-5.0) mmol/L Chloride (98-107) mmol/L Carbon Dioxide (22-30) mmol/L BUN (7-17) mg/dL Creatinine (0.7-1.2) mg/dL Glucose (65-100) mg/dL POC Glucose 128 H 342 H (70-105) Calcium (8.4-10.2) mg/dL AST (5-40) units/L ALT (7-56) units/L Alkaline Phosphatase (35-129) units/L Total Protein (6.3-8.2) g/dL Albumin (3.9-5) g/dL Miscellaneous Test Crossmatch 04/02/19 04/02/19 04/02/19 Range/Units 03:40 03:49 06:50 RBC (3.65-5.03) M/mm3 Hgb (10.1-14.3) gm/dl Hct (30.3-42.9) % RDW (13.2-15.2) % Plt Count (140-440) K/mm3 D-Dimer (0-234) ng/mlDDU ABG pO2 142.8 H (80.0-90.0) mm Hg ABG HCO3 15.5 L (20.0-26.0) mmol/L ABG Base Excess -8.2 L (-2.0-3.0) mmol/L ABG Hemoglobin 8.2 L (12.0-16.0) gm/dl Potassium (3.6-5.0) mmol/L Chloride (98-107) mmol/L Carbon Dioxide (22-30) mmol/L BUN (7-17) mg/dL Creatinine (0.7-1.2) mg/dL Glucose (65-100) mg/dL POC Glucose 247 H 200 H (70-105) Calcium (8.4-10.2) mg/dL AST (5-40) units/L ALT (7-56) units/L Alkaline Phosphatase (35-129) units/L Total Protein (6.3-8.2) g/dL Albumin (3.9-5) g/dL Miscellaneous Test Crossmatch 04/02/19 04/02/19 Range/Units 07:48 07:48 RBC 2.65 L (3.65-5.03) M/mm3 Hgb 8.6 L (10.1-14.3) gm/dl Hct 25.1 L (30.3-42.9) % RDW 17.6 H (13.2-15.2) % Plt Count 48 L (140-440) K/mm3 D-Dimer (0-234) ng/mlDDU ABG pO2 (80.0-90.0) mm Hg ABG HCO3 (20.0-26.0) mmol/L ABG Base Excess (-2.0-3.0) mmol/L ABG Hemoglobin (12.0-16.0) gm/dl Potassium 3.5 L (3.6-5.0) mmol/L Chloride 115.7 H (98-107) mmol/L Carbon Dioxide 19 L (22-30) mmol/L BUN 29 H (7-17) mg/dL Creatinine 0.5 L (0.7-1.2) mg/dL Glucose 159 H (65-100) mg/dL POC Glucose (70-105) Calcium 7.5 L (8.4-10.2) mg/dL AST 1418 H (5-40) units/L ALT 1134 H (7-56) units/L Alkaline Phosphatase 242 H (35-129) units/L Total Protein 4.2 L (6.3-8.2) g/dL Albumin 2.1 L (3.9-5) g/dL Miscellaneous Test Crossmatch
[2019-04-02] MEDS ORDERED: SODIUM BICARBONATE FEEDTUBE PRN (11:44)
[2019-04-02] MEDS ORDERED: SIMPLE SYRUP FEEDTUBE PRN (11:44)
[2019-04-02] MEDS ORDERED: PANCREAZE DR 10,500 UNIT FEEDTUBE PRN (11:44)
--- NOTE | 2019-04-02 12:16 | Progress Note ---
Assessment and Plan Acute toxic metabolic encephalopathy. Diabetic ketoacidosis. Severe sepsis with shock. Possible aspiration pneumonia. History of polysubstance abuse. Leukocytosis. Elevated serum transaminases, possible shock liver. Hyponatremia related to her severe hyperglycemia. Anemia that is macrocytic. History of seizure disorder. Severe metabolic acidosis. Acute kidney injury, possibly on chronic - inform infection control of lice - get neurology evaluation - EEG ordered - discontinue femoral CVL - reduce set rate to 12/min - stop IVF after current bag is done - transfuse PRBC's prn to keep Hb >/= 7.0 g/dl - continue contact isolation - follow HIT assay (No heparinoids) - continue to follow mental status closely - continue and de-escalate antiinfective's per ID recommendations - follow prn CRP & lactate levels to aid clinical decision making - continue daily SAT and SBT assessments as tolerated - off IV insulin - continue enteral nutrition with glucerna and adjust rate per front end manager - discontinued lew catheter - continue bronchodilators with pulmonary hygiene per RT - VAP bundle addressed - continue to wean supplemental O2 to keep O2 sats > 90% - VTE prophylaxis - Stress ulcer prophylaxis - continue accuchecks with glycemic control per SSI for target blood glucose 140-180 mg/dL - continue empiric antibiotics; de-escalate per ID rec's and based on clinical and microbiologic data - sedation target of RASS 0 to -1 - continue Keppra for seizures - continue mobility protocols / off loading for pressure ulcer prevention - Critical care bundles addressed - continue Seizure precautions - fall precautions - neuro-checks per RN - continue other care per attending / other consultants CONDITION: CRITICAL PROGNOSIS: GUARDED TO GRAVE CODE STATUS: FULL CODE The high probability of a clinically significant, sudden or life threatening deterioration of the [Neurology Respiratory, Cardiovascular] system(s) required my full and direct attention, intervention and personal management. The aggregate critical care time was [32] minutes. This time is in addition to time spent performing reported procedures but includes the following: [x] Data Review and interpretation [x] Patient assessment and monitoring of vital signs [x] Documentation [x] Medication orders and management Subjective Date of service: 04/02/19 Principal diagnosis: Ac Hypoxemic Resp Failure; DKA; Severe sepsis with shock; ANGELICA Interval history: Patient is seen today for: Acute Hypoxemic Resp Failure; Ac toxic metabolic encephalopathy; DKA; Severe sepsis with shock; Possible aspiration pneumonia; History of polysubstance abuse; History of seizure disorder; Acute kidney injury, possibly on chronic Seen and examined at bedside; 24hour events reviewed; nursing and respiratory care staff consulted; no adverse overnight events reported to me; resting peacefully in bed; AMS is persistent; tenuously tolerating SBT; no emesis or overt aspiration Objective Vital Signs - 12hr 04/02/19 04/02/19 04/02/19 00:30 00:45 00:47 Temperature Pulse Rate 103 H 102 H 100 H Pulse Rate [ From Monitor] Respiratory 24 25 H Rate Blood Pressure 107/72 112/74 112/74 O2 Sat by Pulse 97 98 99 Oximetry 04/02/19 04/02/19 04/02/19 01:00 01:15 01:30 Temperature Pulse Rate 102 H 109 H 95 H Pulse Rate [ From Monitor] Respiratory 30 H 32 H 24 Rate Blood Pressure 118/77 117/81 112/76 O2 Sat by Pulse 98 99 98 Oximetry 04/02/19 04/02/19 04/02/19 01:45 02:01 02:15 Temperature Pulse Rate 98 H 109 H 114 H Pulse Rate [ From Monitor] Respiratory 25 H 37 H 25 H Rate Blood Pressure 114/74 136/88 110/81 O2 Sat by Pulse 97 96 98 Oximetry 04/02/19 04/02/19 04/02/19 02:30 02:45 03:00 Temperature Pulse Rate 90 89 88 Pulse Rate [ From Monitor] Respiratory 20 14 23 Rate Blood Pressure 104/63 99/62 97/68 O2 Sat by Pulse 97 98 98 Oximetry 04/02/19 04/02/19 04/02/19 03:15 03:30 03:45 Temperature Pulse Rate 87 86 85 Pulse Rate [ From Monitor] Respiratory 22 21 21 Rate Blood Pressure 101/66 97/70 101/69 O2 Sat by Pulse Oximetry 04/02/19 04/02/19 04/02/19 03:51 04:00 04:15 Temperature 99.1 F Pulse Rate 85 86 93 H Pulse Rate [ 85 From Monitor] Respiratory 20 20 Rate Blood Pressure 101/69 98/68 96/66 O2 Sat by Pulse 100 100 Oximetry 04/02/19 04/02/19 04/02/19 04:30 04:45 05:00 Temperature Pulse Rate 93 H 90 90 Pulse Rate [ From Monitor] Respiratory 22 17 23 Rate Blood Pressure 96/64 98/67 101/69 O2 Sat by Pulse Oximetry 04/02/19 04/02/19 04/02/19 05:15 05:30 05:45 Temperature Pulse Rate 94 H 90 100 H Pulse Rate [ From Monitor] Respiratory 25 H 21 30 H Rate Blood Pressure 100/73 101/70 107/78 O2 Sat by Pulse 99 99 Oximetry 04/02/19 04/02/19 04/02/19 06:00 06:15 06:30 Temperature Pulse Rate 88 86 88 Pulse Rate [ From Monitor] Respiratory 20 19 20 Rate Blood Pressure 99/70 99/66 99/70 O2 Sat by Pulse 98 Oximetry 04/02/19 04/02/19 04/02/19 06:45 07:00 07:15 Temperature Pulse Rate 85 95 H 84 Pulse Rate [ From Monitor] Respiratory 20 25 H 21 Rate Blood Pressure 97/68 103/76 99/67 O2 Sat by Pulse 100 Oximetry 04/02/19 04/02/19 04/02/19 07:30 07:36 07:45 Temperature Pulse Rate 91 H 107 H 84 Pulse Rate [ From Monitor] Respiratory 25 H 21 Rate Blood Pressure 105/74 105/74 103/74 O2 Sat by Pulse 100 Oximetry 04/02/19 04/02/19 04/02/19 08:00 08:15 08:30 Temperature Pulse Rate 95 H 102 H 99 H Pulse Rate [ From Monitor] Respiratory 22 25 H 22 Rate Blood Pressure 103/68 105/66 99/57 O2 Sat by Pulse 100 Oximetry 04/02/19 04/02/19 04/02/19 08:45 09:00 09:15 Temperature Pulse Rate 99 H 99 H 106 H Pulse Rate [ From Monitor] Respiratory 16 23 28 H Rate Blood Pressure 98/59 99/59 103/63 O2 Sat by Pulse Oximetry 04/02/19 04/02/19 04/02/19 09:30 09:45 10:00 Temperature Pulse Rate 99 H 100 H 102 H Pulse Rate [ From Monitor] Respiratory 21 22 25 H Rate Blood Pressure 99/56 102/61 108/64 O2 Sat by Pulse 100 Oximetry 04/02/19 04/02/19 04/02/19 10:15 10:30 10:45 Temperature Pulse Rate 122 H 102 H 110 H Pulse Rate [ From Monitor] Respiratory 38 H 22 28 H Rate Blood Pressure 118/78 112/54 119/68 O2 Sat by Pulse 100 Oximetry 04/02/19 04/02/19 11:01 11:56 Temperature Pulse Rate 130 H 131 H Pulse Rate [ From Monitor] Respiratory 39 H Rate Blood Pressure 134/89 108/43 O2 Sat by Pulse 100 100 Oximetry Constitutional: appears uncomfortable, other (young CF normocephalic and atraumatic on MVS) Eyes: non-icteric ENT: oropharynx moist, other (ETT 22-23 cm Jessi) Neck: supple, no lymphadenopathy, no JVD Effort: mildly labored Ascultation: Bilateral: rhonchi Percussion: Bilateral: not dull Cardiovascular: regular rate and rhythm, other (sinus tachycardia) Gastrointestinal: normoactive bowel sounds, soft, non-tender, non-distended Integumentary: normal Extremities: no cyanosis, pink and warm, pulses normal, no ischemia or petechiae, edema (trace to 1+) Neurologic: non-focal exam (grossly), other (Sedated) Psychiatric: other (unable to assess) CBC and BMP: 04/03/19 03:40 04/03/19 03:40 ABG, PT/INR, D-dimer: ABG POC ABG pH 7.251 (7.35-7.45) L 03/30/19 03:15 ABG pH 7.407 pH Units (7.350-7.450) 04/02/19 03:40 ABG pCO2 25.1 mm Hg 04/02/19 03:40 POC ABG pO2 156 (80-105) H 03/30/19 03:15 ABG pO2 142.8 mm Hg (80.0-90.0) H 04/02/19 03:40 POC ABG HCO3 9.4 (22-26 mml/L) 03/30/19 03:15 POC ABG Total CO2 10 (23-27mmol/L) 03/30/19 03:15 POC ABG O2 Sat 99 03/30/19 03:15 ABG O2 Saturation 98.8 % (95.0-99.0) 04/02/19 03:40 PT/INR, D-dimer PT 13.9 Sec. (12.2-14.9) 04/01/19 17:14 INR 1.10 (0.87-1.13) 04/01/19 17:14 5203.68 ng/mlDDU (0-234) H 04/01/19 17:14 Abnormal lab findings: Abnormal Labs 03/29/19 03/29/19 03/29/19 19:20 19:20 19:20 WBC 26.7 H RBC 2.52 L Hgb 8.1 L Hct MCV 148 H MCH MCHC 22 L RDW 18.5 H Plt Count Seg Neuts % (Manual) 82.0 H Lymphocytes % (Manual) 7.0 L Nucleated RBC % Seg Neutrophils # Man 21.9 H Lymphocytes # (Manual) Monocytes # (Manual) 1.9 H PT 21.8 H INR 1.95 H APTT 74.5 H* D-Dimer POC ABG pH ABG pH POC ABG pO2 ABG pO2 ABG HCO3 ABG O2 Saturation ABG Base Excess ABG Hemoglobin VBG pH Oxyhemoglobin Sodium 118 L* Potassium 9.0 H* Chloride 64.5 L Carbon Dioxide 7 L* BUN 53 H Creatinine 2.1 H Glucose 2196 H* POC Glucose Lactic Acid Calcium 12.4 H* Phosphorus Magnesium Iron TIBC Direct Bilirubin AST 3900 H ALT 1034 H Alkaline Phosphatase 316 H Total Creatine Kinase CK-MB (CK-2) C-Reactive Protein Total Protein 5.1 L Albumin 2.8 L Vitamin B12 Salicylates Acetaminophen Miscellaneous Test Crossmatch 03/29/19 03/29/19 03/29/19 19:47 20:59 22:45 WBC RBC Hgb Hct MCV MCH MCHC RDW Plt Count Seg Neuts % (Manual) Lymphocytes % (Manual) Nucleated RBC % Seg Neutrophils # Man Lymphocytes # (Manual) Monocytes # (Manual) PT INR APTT D-Dimer POC ABG pH 6.892 L ABG pH POC ABG pO2 236 H ABG pO2 ABG HCO3 ABG O2 Saturation ABG Base Excess ABG Hemoglobin VBG pH 6.800 L* Oxyhemoglobin Sodium 132 L D Potassium 7.0 H* Chloride 84.3 L Carbon Dioxide 3 L* BUN 48 H Creatinine 1.8 H Glucose 1779 H* POC Glucose Lactic Acid Calcium Phosphorus Magnesium Iron TIBC Direct Bilirubin AST ALT Alkaline Phosphatase Total Creatine Kinase CK-MB (CK-2) C-Reactive Protein Total Protein Albumin Vitamin B12 Salicylates Acetaminophen Miscellaneous Test Crossmatch 03/29/19 03/29/19 03/29/19 22:45 22:45 Unknown WBC RBC Hgb Hct MCV MCH MCHC RDW Plt Count Seg Neuts % (Manual) Lymphocytes % (Manual) Nucleated RBC % Seg Neutrophils # Man Lymphocytes # (Manual) Monocytes # (Manual) PT INR APTT D-Dimer POC ABG pH ABG pH POC ABG pO2 ABG pO2 ABG HCO3 ABG O2 Saturation ABG Base Excess ABG Hemoglobin VBG pH Oxyhemoglobin Sodium Potassium Chloride Carbon Dioxide BUN Creatinine Glucose POC Glucose Lactic Acid Calcium Phosphorus 21.70 H 19.30 H Magnesium 4.70 H 3.90 H Iron TIBC Direct Bilirubin AST ALT Alkaline Phosphatase Total Creatine Kinase 363 H CK-MB (CK-2) C-Reactive Protein Total Protein Albumin Vitamin B12 Salicylates Acetaminophen Miscellaneous Test Crossmatch 03/29/19 03/30/19 03/30/19 Unknown 00:11 00:11 WBC RBC Hgb Hct MCV MCH MCHC RDW Plt Count Seg Neuts % (Manual) Lymphocytes % (Manual) Nucleated RBC % Seg Neutrophils # Man Lymphocytes # (Manual) Monocytes # (Manual) PT INR APTT D-Dimer POC ABG pH ABG pH POC ABG pO2 ABG pO2 ABG HCO3 ABG O2 Saturation ABG Base Excess ABG Hemoglobin VBG pH Oxyhemoglobin Sodium 122 L Potassium 7.9 H* 6.4 H* Chloride 75.3 L 89.7 L Carbon Dioxide 3 L* 12 L D BUN 52 H 46 H Creatinine 2.0 H 1.7 H Glucose 2043 H* 1591 H* POC Glucose Lactic Acid Calcium 7.8 L Phosphorus 10.90 H D Magnesium 3.10 H Iron TIBC Direct Bilirubin AST ALT Alkaline Phosphatase Total Creatine Kinase CK-MB (CK-2) C-Reactive Protein Total Protein Albumin Vitamin B12 Salicylates Acetaminophen Miscellaneous Test Crossmatch 03/30/19 03/30/19 03/30/19 02:14 02:14 03:15 WBC RBC Hgb Hct MCV MCH MCHC RDW Plt Count Seg Neuts % (Manual) Lymphocytes % (Manual) Nucleated RBC % Seg Neutrophils # Man Lymphocytes # (Manual) Monocytes # (Manual) PT INR APTT D-Dimer POC ABG pH 7.251 L ABG pH POC ABG pO2 156 H ABG pO2 ABG HCO3 ABG O2 Saturation ABG Base Excess ABG Hemoglobin VBG pH Oxyhemoglobin Sodium Potassium Chloride Carbon Dioxide 9 L* BUN 45 H Creatinine 1.7 H Glucose 1155 H* POC Glucose Lactic Acid Calcium 7.9 L Phosphorus 5.30 H D Magnesium 2.90 H Iron TIBC Direct Bilirubin AST ALT Alkaline Phosphatase Total Creatine Kinase CK-MB (CK-2) C-Reactive Protein Total Protein Albumin Vitamin B12 Salicylates Acetaminophen Miscellaneous Test Crossmatch 03/30/19 03/30/19 03/30/19 03:30 04:23 05:26 WBC 18.0 H RBC 2.31 L Hgb 7.3 L Hct 23.8 L D MCV 103 H MCH MCHC RDW 17.1 H Plt Count Seg Neuts % (Manual) 79.0 H Lymphocytes % (Manual) Nucleated RBC % Seg Neutrophils # Man 14.2 H Lymphocytes # (Manual) Monocytes # (Manual) PT INR APTT D-Dimer POC ABG pH ABG pH POC ABG pO2 ABG pO2 ABG HCO3 ABG O2 Saturation ABG Base Excess ABG Hemoglobin VBG pH Oxyhemoglobin Sodium Potassium Chloride Carbon Dioxide BUN Creatinine Glucose POC Glucose Lactic Acid Calcium Phosphorus Magnesium 2.60 H Iron TIBC Direct Bilirubin AST ALT Alkaline Phosphatase Total Creatine Kinase 2465 H CK-MB (CK-2) 52.7 H C-Reactive Protein Total Protein Albumin Vitamin B12 Salicylates Acetaminophen Miscellaneous Test Crossmatch See Detail 03/30/19 03/30/19 03/30/19 05:26 10:38 11:08 WBC RBC Hgb Hct MCV MCH MCHC RDW Plt Count Seg Neuts % (Manual) Lymphocytes % (Manual) Nucleated RBC % Seg Neutrophils # Man Lymphocytes # (Manual) Monocytes # (Manual) PT INR APTT D-Dimer POC ABG pH ABG pH POC ABG pO2 ABG pO2 ABG HCO3 ABG O2 Saturation ABG Base Excess ABG Hemoglobin VBG pH Oxyhemoglobin Sodium 158 H D Potassium 3.5 L Chloride 109.3 H Carbon Dioxide 19 L D BUN 40 H Creatinine 1.5 H Glucose 760 H* POC Glucose 380 H 263 H Lactic Acid Calcium 7.3 L Phosphorus Magnesium Iron TIBC Direct Bilirubin AST 16912 H ALT 2156 H Alkaline Phosphatase 271 H Total Creatine Kinase CK-MB (CK-2) C-Reactive Protein Total Protein 4.5 L Albumin 2.4 L Vitamin B12 Salicylates Acetaminophen Miscellaneous Test Crossmatch 03/30/19 03/30/19 03/30/19 12:25 12:57 12:57 WBC RBC Hgb Hct MCV MCH MCHC RDW Plt Count Seg Neuts % (Manual) Lymphocytes % (Manual) Nucleated RBC % Seg Neutrophils # Man Lymphocytes # (Manual) Monocytes # (Manual) PT 21.0 H INR 1.86 H APTT D-Dimer POC ABG pH ABG pH POC ABG pO2 ABG pO2 ABG HCO3 ABG O2 Saturation ABG Base Excess ABG Hemoglobin VBG pH Oxyhemoglobin Sodium 156 H Potassium 3.2 L Chloride 116.4 H Carbon Dioxide 21 L BUN 37 H Creatinine Glucose 162 H POC Glucose 196 H Lactic Acid Calcium 7.2 L Phosphorus Magnesium Iron TIBC Direct Bilirubin AST ALT Alkaline Phosphatase Total Creatine Kinase CK-MB (CK-2) C-Reactive Protein Total Protein Albumin Vitamin B12 Salicylates Acetaminophen Miscellaneous Test Crossmatch 03/30/19 03/30/19 03/30/19 12:57 12:57 13:23 WBC RBC Hgb Hct MCV MCH MCHC RDW Plt Count Seg Neuts % (Manual) Lymphocytes % (Manual) Nucleated RBC % Seg Neutrophils # Man Lymphocytes # (Manual) Monocytes # (Manual) PT INR APTT D-Dimer POC ABG pH ABG pH POC ABG pO2 ABG pO2 ABG HCO3 ABG O2 Saturation ABG Base Excess ABG Hemoglobin VBG pH Oxyhemoglobin Sodium Potassium Chloride Carbon Dioxide BUN Creatinine Glucose POC Glucose 176 H Lactic Acid 9.00 H* Calcium Phosphorus Magnesium Iron TIBC Direct Bilirubin AST ALT Alkaline Phosphatase Total Creatine Kinase CK-MB (CK-2) C-Reactive Protein 2.40 H Total Protein Albumin Vitamin B12 Salicylates Acetaminophen Miscellaneous Test Crossmatch 03/30/19 03/30/19 03/30/19 14:00 14:47 16:11 WBC RBC Hgb Hct MCV MCH MCHC RDW Plt Count Seg Neuts % (Manual) Lymphocytes % (Manual) Nucleated RBC % Seg Neutrophils # Man Lymphocytes # (Manual) Monocytes # (Manual) PT INR APTT D-Dimer POC ABG pH ABG pH POC ABG pO2 ABG pO2 ABG HCO3 ABG O2 Saturation ABG Base Excess ABG Hemoglobin VBG pH Oxyhemoglobin Sodium Potassium Chloride Carbon Dioxide BUN Creatinine Glucose POC Glucose 245 H 181 H Lactic Acid Calcium Phosphorus Magnesium Iron TIBC Direct Bilirubin AST ALT Alkaline Phosphatase Total Creatine Kinase CK-MB (CK-2) C-Reactive Protein Total Protein Albumin Vitamin B12 Salicylates Acetaminophen Miscellaneous Test Flexitest 1 H Crossmatch 03/30/19 03/30/19 03/30/19 17:11 17:46 18:59 WBC RBC Hgb Hct MCV MCH MCHC RDW Plt Count Seg Neuts % (Manual) Lymphocytes % (Manual) Nucleated RBC % Seg Neutrophils # Man Lymphocytes # (Manual) Monocytes # (Manual) PT INR APTT D-Dimer POC ABG pH ABG pH POC ABG pO2 ABG pO2 ABG HCO3 ABG O2 Saturation ABG Base Excess ABG Hemoglobin VBG pH Oxyhemoglobin Sodium Potassium Chloride Carbon Dioxide BUN Creatinine Glucose POC Glucose 167 H 125 H 140 H Lactic Acid Calcium Phosphorus Magnesium Iron TIBC Direct Bilirubin AST ALT Alkaline Phosphatase Total Creatine Kinase CK-MB (CK-2) C-Reactive Protein Total Protein Albumin Vitamin B12 Salicylates Acetaminophen Miscellaneous Test Crossmatch 03/30/19 03/30/19 03/30/19 21:31 22:19 23:13 WBC RBC Hgb Hct MCV MCH MCHC RDW Plt Count Seg Neuts % (Manual) Lymphocytes % (Manual) Nucleated RBC % Seg Neutrophils # Man Lymphocytes # (Manual) Monocytes # (Manual) PT INR APTT D-Dimer POC ABG pH ABG pH POC ABG pO2 ABG pO2 ABG HCO3 ABG O2 Saturation ABG Base Excess ABG Hemoglobin VBG pH Oxyhemoglobin Sodium Potassium Chloride Carbon Dioxide BUN Creatinine Glucose POC Glucose 166 H 115 H 112 H Lactic Acid Calcium Phosphorus Magnesium Iron TIBC Direct Bilirubin AST ALT Alkaline Phosphatase Total Creatine Kinase CK-MB (CK-2) C-Reactive Protein Total Protein Albumin Vitamin B12 Salicylates Acetaminophen Miscellaneous Test Crossmatch 03/30/19 03/30/19 03/30/19 Unknown Unknown Unknown WBC RBC Hgb Hct MCV MCH MCHC RDW Plt Count Seg Neuts % (Manual) Lymphocytes % (Manual) Nucleated RBC % Seg Neutrophils # Man Lymphocytes # (Manual) Monocytes # (Manual) PT INR APTT D-Dimer POC ABG pH ABG pH POC ABG pO2 ABG pO2 47.8 L ABG HCO3 18.8 L ABG O2 Saturation 83.8 L ABG Base Excess -5.4 L ABG Hemoglobin 6.8 L VBG pH Oxyhemoglobin 81.8 L Sodium 157 H Potassium 3.3 L Chloride 117.9 H Carbon Dioxide 20 L BUN 36 H Creatinine Glucose 150 H POC Glucose Lactic Acid Calcium 7.2 L Phosphorus Magnesium Iron TIBC Direct Bilirubin AST ALT Alkaline Phosphatase Total Creatine Kinase CK-MB (CK-2) C-Reactive Protein Total Protein Albumin Vitamin B12 Salicylates 0.8 L Acetaminophen Miscellaneous Test Crossmatch 03/30/19 03/31/19 03/31/19 Unknown 00:03 01:18 WBC RBC Hgb Hct MCV MCH MCHC RDW Plt Count Seg Neuts % (Manual) Lymphocytes % (Manual) Nucleated RBC % Seg Neutrophils # Man Lymphocytes # (Manual) Monocytes # (Manual) PT INR APTT D-Dimer POC ABG pH ABG pH POC ABG pO2 ABG pO2 ABG HCO3 ABG O2 Saturation ABG Base Excess ABG Hemoglobin VBG pH Oxyhemoglobin Sodium Potassium Chloride Carbon Dioxide BUN Creatinine Glucose POC Glucose 188 H 114 H Lactic Acid Calcium Phosphorus Magnesium Iron TIBC Direct Bilirubin AST ALT Alkaline Phosphatase Total Creatine Kinase CK-MB (CK-2) C-Reactive Protein Total Protein Albumin Vitamin B12 Salicylates Acetaminophen < 5.0 L Miscellaneous Test Crossmatch 03/31/19 03/31/19 03/31/19 03:07 03:50 03:51 WBC RBC 1.89 L Hgb 6.1 L Hct 18.2 L* MCV MCH MCHC RDW 17.7 H Plt Count 89 L Seg Neuts % (Manual) 86.0 H Lymphocytes % (Manual) 10.0 L Nucleated RBC % 1.0 H Seg Neutrophils # Man Lymphocytes # (Manual) 0.7 L Monocytes # (Manual) PT INR APTT D-Dimer POC ABG pH ABG pH 7.525 H POC ABG pO2 ABG pO2 178.0 H ABG HCO3 19.5 L ABG O2 Saturation 99.2 H ABG Base Excess -3.1 L ABG Hemoglobin 5.8 L VBG pH Oxyhemoglobin Sodium Potassium Chloride Carbon Dioxide BUN Creatinine Glucose POC Glucose 107 H Lactic Acid Calcium Phosphorus Magnesium Iron TIBC Direct Bilirubin AST ALT Alkaline Phosphatase Total Creatine Kinase CK-MB (CK-2) C-Reactive Protein Total Protein Albumin Vitamin B12 Salicylates Acetaminophen Miscellaneous Test Crossmatch 03/31/19 03/31/19 03/31/19 03:51 04:05 05:05 WBC RBC Hgb Hct MCV MCH MCHC RDW Plt Count Seg Neuts % (Manual) Lymphocytes % (Manual) Nucleated RBC % Seg Neutrophils # Man Lymphocytes # (Manual) Monocytes # (Manual) PT INR APTT D-Dimer POC ABG pH ABG pH POC ABG pO2 ABG pO2 ABG HCO3 ABG O2 Saturation ABG Base Excess ABG Hemoglobin VBG pH Oxyhemoglobin Sodium 151 H Potassium 3.2 L Chloride 119.4 H Carbon Dioxide 17 L BUN 35 H Creatinine Glucose 139 H POC Glucose 153 H 176 H Lactic Acid Calcium 7.1 L Phosphorus Magnesium Iron TIBC Direct Bilirubin AST ALT Alkaline Phosphatase Total Creatine Kinase CK-MB (CK-2) C-Reactive Protein Total Protein Albumin Vitamin B12 Salicylates Acetaminophen Miscellaneous Test Crossmatch 03/31/19 03/31/19 03/31/19 05:35 06:23 07:50 WBC RBC Hgb Hct MCV MCH MCHC RDW Plt Count Seg Neuts % (Manual) Lymphocytes % (Manual) Nucleated RBC % Seg Neutrophils # Man Lymphocytes # (Manual) Monocytes # (Manual) PT INR APTT D-Dimer POC ABG pH ABG pH POC ABG pO2 ABG pO2 ABG HCO3 ABG O2 Saturation ABG Base Excess ABG Hemoglobin VBG pH Oxyhemoglobin Sodium Potassium Chloride Carbon Dioxide BUN Creatinine Glucose POC Glucose 133 H Lactic Acid 3.20 H* 3.30 H* Calcium Phosphorus Magnesium Iron TIBC Direct Bilirubin AST ALT Alkaline Phosphatase Total Creatine Kinase CK-MB (CK-2) C-Reactive Protein Total Protein Albumin Vitamin B12 Salicylates Acetaminophen Miscellaneous Test Crossmatch 03/31/19 03/31/19 03/31/19 07:51 08:20 08:20 WBC RBC Hgb Hct MCV MCH MCHC RDW Plt Count Seg Neuts % (Manual) Lymphocytes % (Manual) Nucleated RBC % Seg Neutrophils # Man Lymphocytes # (Manual) Monocytes # (Manual) PT INR APTT D-Dimer POC ABG pH ABG pH POC ABG pO2 ABG pO2 ABG HCO3 ABG O2 Saturation ABG Base Excess ABG Hemoglobin VBG pH Oxyhemoglobin Sodium Potassium Chloride Carbon Dioxide BUN Creatinine Glucose POC Glucose 135 H Lactic Acid Calcium Phosphorus Magnesium Iron 26 L TIBC 193 L Direct Bilirubin AST ALT Alkaline Phosphatase Total Creatine Kinase CK-MB (CK-2) C-Reactive Protein Total Protein Albumin Vitamin B12 > 2000 H Salicylates Acetaminophen Miscellaneous Test Crossmatch 03/31/19 03/31/19 03/31/19 08:20 09:06 10:47 WBC RBC Hgb Hct MCV MCH MCHC RDW Plt Count Seg Neuts % (Manual) Lymphocytes % (Manual) Nucleated RBC % Seg Neutrophils # Man Lymphocytes # (Manual) Monocytes # (Manual) PT INR APTT D-Dimer POC ABG pH ABG pH POC ABG pO2 ABG pO2 ABG HCO3 ABG O2 Saturation ABG Base Excess ABG Hemoglobin VBG pH Oxyhemoglobin Sodium 153 H Potassium 3.0 L Chloride 118.9 H Carbon Dioxide 18 L BUN 37 H Creatinine Glucose 132 H POC Glucose 145 H 153 H Lactic Acid Calcium 7.1 L Phosphorus Magnesium Iron TIBC Direct Bilirubin AST ALT Alkaline Phosphatase Total Creatine Kinase CK-MB (CK-2) C-Reactive Protein Total Protein Albumin Vitamin B12 Salicylates Acetaminophen Miscellaneous Test Crossmatch 03/31/19 03/31/19 03/31/19 11:49 13:04 13:42 WBC RBC Hgb Hct MCV MCH MCHC RDW Plt Count Seg Neuts % (Manual) Lymphocytes % (Manual) Nucleated RBC % Seg Neutrophils # Man Lymphocytes # (Manual) Monocytes # (Manual) PT INR APTT D-Dimer POC ABG pH ABG pH POC ABG pO2 ABG pO2 ABG HCO3 ABG O2 Saturation ABG Base Excess ABG Hemoglobin VBG pH Oxyhemoglobin Sodium Potassium Chloride Carbon Dioxide BUN Creatinine Glucose POC Glucose 174 H 214 H 186 H Lactic Acid Calcium Phosphorus Magnesium Iron TIBC Direct Bilirubin AST ALT Alkaline Phosphatase Total Creatine Kinase CK-MB (CK-2) C-Reactive Protein Total Protein Albumin Vitamin B12 Salicylates Acetaminophen Miscellaneous Test Crossmatch 03/31/19 03/31/19 03/31/19 15:08 16:08 17:11 WBC RBC Hgb Hct MCV MCH MCHC RDW Plt Count Seg Neuts % (Manual) Lymphocytes % (Manual) Nucleated RBC % Seg Neutrophils # Man Lymphocytes # (Manual) Monocytes # (Manual) PT INR APTT D-Dimer POC ABG pH ABG pH POC ABG pO2 ABG pO2 ABG HCO3 ABG O2 Saturation ABG Base Excess ABG Hemoglobin VBG pH Oxyhemoglobin Sodium Potassium Chloride Carbon Dioxide BUN Creatinine Glucose POC Glucose 136 H 150 H 140 H Lactic Acid Calcium Phosphorus Magnesium Iron TIBC Direct Bilirubin AST ALT Alkaline Phosphatase Total Creatine Kinase CK-MB (CK-2) C-Reactive Protein Total Protein Albumin Vitamin B12 Salicylates Acetaminophen Miscellaneous Test Crossmatch 03/31/19 03/31/19 03/31/19 17:30 17:30 17:59 WBC RBC Hgb 7.7 L Hct 23.0 L MCV MCH MCHC RDW Plt Count Seg Neuts % (Manual) Lymphocytes % (Manual) Nucleated RBC % Seg Neutrophils # Man Lymphocytes # (Manual) Monocytes # (Manual) PT INR APTT D-Dimer POC ABG pH ABG pH POC ABG pO2 ABG pO2 ABG HCO3 ABG O2 Saturation ABG Base Excess ABG Hemoglobin VBG pH Oxyhemoglobin Sodium 153 H Potassium 3.5 L Chloride 119.3 H Carbon Dioxide 20 L BUN 34 H Creatinine Glucose 162 H POC Glucose 156 H Lactic Acid Calcium 7.6 L Phosphorus Magnesium Iron TIBC Direct Bilirubin AST ALT Alkaline Phosphatase Total Creatine Kinase CK-MB (CK-2) C-Reactive Protein Total Protein Albumin Vitamin B12 Salicylates Acetaminophen Miscellaneous Test Crossmatch 03/31/19 03/31/19 03/31/19 18:58 20:28 21:09 WBC RBC Hgb Hct MCV MCH MCHC RDW Plt Count Seg Neuts % (Manual) Lymphocytes % (Manual) Nucleated RBC % Seg Neutrophils # Man Lymphocytes # (Manual) Monocytes # (Manual) PT INR APTT D-Dimer POC ABG pH ABG pH POC ABG pO2 ABG pO2 ABG HCO3 ABG O2 Saturation ABG Base Excess ABG Hemoglobin VBG pH Oxyhemoglobin Sodium Potassium Chloride Carbon Dioxide BUN Creatinine Glucose POC Glucose 152 H 138 H 136 H Lactic Acid Calcium Phosphorus Magnesium Iron TIBC Direct Bilirubin AST ALT Alkaline Phosphatase Total Creatine Kinase CK-MB (CK-2) C-Reactive Protein Total Protein Albumin Vitamin B12 Salicylates Acetaminophen Miscellaneous Test Crossmatch 03/31/19 03/31/19 04/01/19 22:15 23:10 00:05 WBC RBC Hgb Hct MCV MCH MCHC RDW Plt Count Seg Neuts % (Manual) Lymphocytes % (Manual) Nucleated RBC % Seg Neutrophils # Man Lymphocytes # (Manual) Monocytes # (Manual) PT INR APTT D-Dimer POC ABG pH ABG pH POC ABG pO2 ABG pO2 ABG HCO3 ABG O2 Saturation ABG Base Excess ABG Hemoglobin VBG pH Oxyhemoglobin Sodium Potassium Chloride Carbon Dioxide BUN Creatinine Glucose POC Glucose 137 H 148 H 143 H Lactic Acid Calcium Phosphorus Magnesium Iron TIBC Direct Bilirubin AST ALT Alkaline Phosphatase Total Creatine Kinase CK-MB (CK-2) C-Reactive Protein Total Protein Albumin Vitamin B12 Salicylates Acetaminophen Miscellaneous Test Crossmatch 04/01/19 04/01/19 04/01/19 01:17 02:11 03:12 WBC RBC Hgb Hct MCV MCH MCHC RDW Plt Count Seg Neuts % (Manual) Lymphocytes % (Manual) Nucleated RBC % Seg Neutrophils # Man Lymphocytes # (Manual) Monocytes # (Manual) PT INR APTT D-Dimer POC ABG pH ABG pH POC ABG pO2 ABG pO2 ABG HCO3 ABG O2 Saturation ABG Base Excess ABG Hemoglobin VBG pH Oxyhemoglobin Sodium Potassium Chloride Carbon Dioxide BUN Creatinine Glucose POC Glucose 151 H 155 H 140 H Lactic Acid Calcium Phosphorus Magnesium Iron TIBC Direct Bilirubin AST ALT Alkaline Phosphatase Total Creatine Kinase CK-MB (CK-2) C-Reactive Protein Total Protein Albumin Vitamin B12 Salicylates Acetaminophen Miscellaneous Test Crossmatch 04/01/19 04/01/19 04/01/19 04:03 04:16 05:01 WBC RBC 2.05 L Hgb 6.8 L Hct 20.5 L MCV 100 H MCH 33 H MCHC RDW 17.7 H Plt Count 53 L Seg Neuts % (Manual) 71.0 H Lymphocytes % (Manual) Nucleated RBC % Seg Neutrophils # Man Lymphocytes # (Manual) Monocytes # (Manual) PT INR APTT D-Dimer POC ABG pH ABG pH POC ABG pO2 ABG pO2 ABG HCO3 ABG O2 Saturation ABG Base Excess ABG Hemoglobin VBG pH Oxyhemoglobin Sodium Potassium Chloride Carbon Dioxide BUN Creatinine Glucose POC Glucose 143 H 142 H Lactic Acid Calcium Phosphorus Magnesium Iron TIBC Direct Bilirubin AST ALT Alkaline Phosphatase Total Creatine Kinase CK-MB (CK-2) C-Reactive Protein Total Protein Albumin Vitamin B12 Salicylates Acetaminophen Miscellaneous Test Crossmatch 04/01/19 04/01/19 04/01/19 05:01 05:08 05:23 WBC RBC Hgb Hct MCV MCH MCHC RDW Plt Count Seg Neuts % (Manual) Lymphocytes % (Manual) Nucleated RBC % Seg Neutrophils # Man Lymphocytes # (Manual) Monocytes # (Manual) PT INR APTT D-Dimer POC ABG pH ABG pH POC ABG pO2 ABG pO2 ABG HCO3 ABG O2 Saturation ABG Base Excess ABG Hemoglobin VBG pH Oxyhemoglobin Sodium Potassium Chloride Carbon Dioxide BUN Creatinine Glucose POC Glucose 119 H 115 H Lactic Acid Calcium Phosphorus Magnesium Iron TIBC Direct Bilirubin 0.3 H AST 4601 H ALT 1542 H Alkaline Phosphatase 185 H Total Creatine Kinase CK-MB (CK-2) C-Reactive Protein Total Protein 3.8 L Albumin 1.6 L Vitamin B12 Salicylates Acetaminophen Miscellaneous Test Crossmatch 04/01/19 04/01/19 04/01/19 06:37 08:15 09:50 WBC RBC Hgb 6.5 L Hct 19.2 L* MCV MCH MCHC RDW Plt Count Seg Neuts % (Manual) Lymphocytes % (Manual) Nucleated RBC % Seg Neutrophils # Man Lymphocytes # (Manual) Monocytes # (Manual) PT INR APTT D-Dimer POC ABG pH ABG pH POC ABG pO2 ABG pO2 ABG HCO3 ABG O2 Saturation ABG Base Excess ABG Hemoglobin VBG pH Oxyhemoglobin Sodium Potassium Chloride Carbon Dioxide BUN Creatinine Glucose POC Glucose 124 H 138 H Lactic Acid Calcium Phosphorus Magnesium Iron TIBC Direct Bilirubin AST ALT Alkaline Phosphatase Total Creatine Kinase CK-MB (CK-2) C-Reactive Protein Total Protein Albumin Vitamin B12 Salicylates Acetaminophen Miscellaneous Test Crossmatch 04/01/19 04/01/19 04/01/19 10:10 10:31 11:35 WBC RBC Hgb Hct MCV MCH MCHC RDW Plt Count Seg Neuts % (Manual) Lymphocytes % (Manual) Nucleated RBC % Seg Neutrophils # Man Lymphocytes # (Manual) Monocytes # (Manual) PT INR APTT D-Dimer POC ABG pH ABG pH POC ABG pO2 ABG pO2 ABG HCO3 ABG O2 Saturation ABG Base Excess ABG Hemoglobin VBG pH Oxyhemoglobin Sodium 149 H Potassium 3.5 L Chloride 119.9 H Carbon Dioxide 21 L BUN 33 H Creatinine 0.5 L Glucose 142 H POC Glucose 185 H 201 H Lactic Acid Calcium 7.3 L Phosphorus Magnesium Iron TIBC Direct Bilirubin AST 3686 H ALT 1440 H Alkaline Phosphatase 185 H Total Creatine Kinase CK-MB (CK-2) C-Reactive Protein Total Protein 3.7 L Albumin 1.8 L Vitamin B12 Salicylates Acetaminophen Miscellaneous Test Crossmatch 04/01/19 04/01/19 04/01/19 13:05 14:35 17:13 WBC RBC Hgb Hct MCV MCH MCHC RDW Plt Count Seg Neuts % (Manual) Lymphocytes % (Manual) Nucleated RBC % Seg Neutrophils # Man Lymphocytes # (Manual) Monocytes # (Manual) PT INR APTT D-Dimer POC ABG pH ABG pH POC ABG pO2 ABG pO2 ABG HCO3 ABG O2 Saturation ABG Base Excess ABG Hemoglobin VBG pH Oxyhemoglobin Sodium Potassium Chloride Carbon Dioxide BUN Creatinine Glucose POC Glucose 169 H 134 H 69 L Lactic Acid Calcium Phosphorus Magnesium Iron TIBC Direct Bilirubin AST ALT Alkaline Phosphatase Total Creatine Kinase CK-MB (CK-2) C-Reactive Protein Total Protein Albumin Vitamin B12 Salicylates Acetaminophen Miscellaneous Test Crossmatch 04/01/19 04/01/19 04/01/19 17:14 18:30 22:50 WBC RBC Hgb Hct MCV MCH MCHC RDW Plt Count Seg Neuts % (Manual) Lymphocytes % (Manual) Nucleated RBC % Seg Neutrophils # Man Lymphocytes # (Manual) Monocytes # (Manual) PT INR APTT D-Dimer 5203.68 H POC ABG pH ABG pH POC ABG pO2 ABG pO2 ABG HCO3 ABG O2 Saturation ABG Base Excess ABG Hemoglobin VBG pH Oxyhemoglobin Sodium Potassium Chloride Carbon Dioxide BUN Creatinine Glucose POC Glucose 128 H 342 H Lactic Acid Calcium Phosphorus Magnesium Iron TIBC Direct Bilirubin AST ALT Alkaline Phosphatase Total Creatine Kinase CK-MB (CK-2) C-Reactive Protein Total Protein Albumin Vitamin B12 Salicylates Acetaminophen Miscellaneous Test Crossmatch 04/01/19 04/02/19 04/02/19 Unknown 03:40 03:49 WBC RBC Hgb Hct MCV MCH MCHC RDW Plt Count Seg Neuts % (Manual) Lymphocytes % (Manual) Nucleated RBC % Seg Neutrophils # Man Lymphocytes # (Manual) Monocytes # (Manual) PT INR APTT D-Dimer POC ABG pH ABG pH POC ABG pO2 ABG pO2 78.3 L 142.8 H ABG HCO3 15.5 L ABG O2 Saturation ABG Base Excess -3.5 L -8.2 L ABG Hemoglobin 6.8 L 8.2 L VBG pH Oxyhemoglobin 94.3 L Sodium Potassium Chloride Carbon Dioxide BUN Creatinine Glucose POC Glucose 247 H Lactic Acid Calcium Phosphorus Magnesium Iron TIBC Direct Bilirubin AST ALT Alkaline Phosphatase Total Creatine Kinase CK-MB (CK-2) C-Reactive Protein Total Protein Albumin Vitamin B12 Salicylates Acetaminophen Miscellaneous Test Crossmatch 04/02/19 04/02/19 04/02/19 06:50 07:48 07:48 WBC RBC 2.65 L Hgb 8.6 L Hct 25.1 L MCV MCH MCHC RDW 17.6 H Plt Count 48 L Seg Neuts % (Manual) Lymphocytes % (Manual) Nucleated RBC % Seg Neutrophils # Man Lymphocytes # (Manual) Monocytes # (Manual) PT INR APTT D-Dimer POC ABG pH ABG pH POC ABG pO2 ABG pO2 ABG HCO3 ABG O2 Saturation ABG Base Excess ABG Hemoglobin VBG pH Oxyhemoglobin Sodium Potassium 3.5 L Chloride 115.7 H Carbon Dioxide 19 L BUN 29 H Creatinine 0.5 L Glucose 159 H POC Glucose 200 H Lactic Acid Calcium 7.5 L Phosphorus Magnesium Iron TIBC Direct Bilirubin AST 1418 H ALT 1134 H Alkaline Phosphatase 242 H Total Creatine Kinase CK-MB (CK-2) C-Reactive Protein Total Protein 4.2 L Albumin 2.1 L Vitamin B12 Salicylates Acetaminophen Miscellaneous Test Crossmatch Chest x-ray: image reviewed (improving but persistent left lung infiltrate) Allied health notes reviewed: nursing
[2019-04-02] MEDS: fentaNYL DRIP Premix 2,000 MCG/100 ML BAG IV SCH (13:25)
--- NOTE | 2019-04-02 14:34 | Progress Note ---
Assessment and Plan Cultures: 03/29 BCx: pend 03/29 sputum Cx: C albicans A/P: 28 yo F PMHx T1DM admitted after receiving intubation and compressions due to non-responsiveness likely secondary to DKA 1. SIRS - likely secondary to DKA/resuscitation, possible infective component of aspiration PNA vs penumonitis. Leukocytosis improving. Pressor requirements impr oving. CXR improving. 2. Aspiration pneumonia vs pneumonitis - Procal greatly elevated. Continue antibiotics. Can treat for 7 days. Jenn in sputum culture not a pathogen of the respiratory tract. 3. Acute liver failure - Possibly secondary to DKA, but liver enzymes vastly and quickly increased. Viral etiologies negative 4. DKA - numerous metabolic derangements, per primary/ICU team 5. T1DM Recs: - continue cefepime renally dosed at 2g q8h - continue metronidazole 500mg q8h - follow liver function - stop date: 04/06 Thank you for the consult, we will continue to follow. Vlad Carson MD [facility] M: [phone] O: [phone] F: [phone] Subjective Date of service: 04/02/19 Principal diagnosis: Ac Hypoxemic Resp Failure; DKA; Severe sepsis with shock; ANGELICA Interval history: No change. Mother at bedside today, notes she is bipolar and often non-compliant with her psych meds and her insulin. She was just discharged from the hospital on the Tuesday prior to admission. She has aspirated numerous times. Objective - Exam Narrative Exam: Physical Exam: Constitutional: Intubated, sedated Head, Ears, Nose: Normocephalic, atraumatic. External ears, nose normal Eyes: Conjunctivae/corneas clear. No icterus. No ptosis. Neck: Supple, no meningeal signs. Intubated Oral: dentition fair, no thrush Cardiovascular: S1, S2 normal. Respiratory: Good air entry, clear to auscultation bilaterally GI: Soft, non-tender; bowel sounds normal. No peritoneal signs. Musculoskeletal: No pedal edema, no cyanosis. Skin: No rash or abscess Hem/Lymphatic: No palpable cervical or supraclavicular nodes. No lymphangitis Neurological: Intubated, sedated - Constitutional Vitals: Vital Signs Temp Pulse Resp BP Pulse Ox 98.3 F 131 H 39 H 108/43 100 04/02/19 12:00 04/02/19 11:56 04/02/19 11:01 04/02/19 11:56 04/02/19 11:56 Temperature -Last 24 Hours Temperature 98.3 F Temperature 98.2 F Temperature 99.1 F Temperature 100.6 F Temperature 99.5 F Temperature 97.7 F - Labs CBC & Chem 7: 04/02/19 07:48 04/02/19 07:48 Labs: Abnormal lab results 03/30/19 03/30/19 04/01/19 Range/Units 03:30 14:00 14:35 RBC (3.65-5.03) M/mm3 Hgb (10.1-14.3) gm/dl Hct (30.3-42.9) % RDW (13.2-15.2) % Plt Count (140-440) K/mm3 D-Dimer (0-234) ng/mlDDU ABG pO2 (80.0-90.0) mm Hg ABG HCO3 (20.0-26.0) mmol/L ABG Base Excess (-2.0-3.0) mmol/L ABG Hemoglobin (12.0-16.0) gm/dl Potassium (3.6-5.0) mmol/L Chloride (98-107) mmol/L Carbon Dioxide (22-30) mmol/L BUN (7-17) mg/dL Creatinine (0.7-1.2) mg/dL Glucose (65-100) mg/dL POC Glucose 134 H (70-105) Calcium (8.4-10.2) mg/dL AST (5-40) units/L ALT (7-56) units/L Alkaline Phosphatase (35-129) units/L Total Protein (6.3-8.2) g/dL Albumin (3.9-5) g/dL Miscellaneous Test Flexitest 1 H Crossmatch See Detail 04/01/19 04/01/19 04/01/19 Range/Units 17:13 17:14 18:30 RBC (3.65-5.03) M/mm3 Hgb (10.1-14.3) gm/dl Hct (30.3-42.9) % RDW (13.2-15.2) % Plt Count (140-440) K/mm3 D-Dimer 5203.68 H (0-234) ng/mlDDU ABG pO2 (80.0-90.0) mm Hg ABG HCO3 (20.0-26.0) mmol/L ABG Base Excess (-2.0-3.0) mmol/L ABG Hemoglobin (12.0-16.0) gm/dl Potassium (3.6-5.0) mmol/L Chloride (98-107) mmol/L Carbon Dioxide (22-30) mmol/L BUN (7-17) mg/dL Creatinine (0.7-1.2) mg/dL Glucose (65-100) mg/dL POC Glucose 69 L 128 H (70-105) Calcium (8.4-10.2) mg/dL AST (5-40) units/L ALT (7-56) units/L Alkaline Phosphatase (35-129) units/L Total Protein (6.3-8.2) g/dL Albumin (3.9-5) g/dL Miscellaneous Test Crossmatch 04/01/19 04/02/19 04/02/19 Range/Units 22:50 03:40 03:49 RBC (3.65-5.03) M/mm3 Hgb (10.1-14.3) gm/dl Hct (30.3-42.9) % RDW (13.2-15.2) % Plt Count (140-440) K/mm3 D-Dimer (0-234) ng/mlDDU ABG pO2 142.8 H (80.0-90.0) mm Hg ABG HCO3 15.5 L (20.0-26.0) mmol/L ABG Base Excess -8.2 L (-2.0-3.0) mmol/L ABG Hemoglobin 8.2 L (12.0-16.0) gm/dl Potassium (3.6-5.0) mmol/L Chloride (98-107) mmol/L Carbon Dioxide (22-30) mmol/L BUN (7-17) mg/dL Creatinine (0.7-1.2) mg/dL Glucose (65-100) mg/dL POC Glucose 342 H 247 H (70-105) Calcium (8.4-10.2) mg/dL AST (5-40) units/L ALT (7-56) units/L Alkaline Phosphatase (35-129) units/L Total Protein (6.3-8.2) g/dL Albumin (3.9-5) g/dL Miscellaneous Test Crossmatch 04/02/19 04/02/19 04/02/19 Range/Units 06:50 07:48 07:48 RBC 2.65 L (3.65-5.03) M/mm3 Hgb 8.6 L (10.1-14.3) gm/dl Hct 25.1 L (30.3-42.9) % RDW 17.6 H (13.2-15.2) % Plt Count 48 L (140-440) K/mm3 D-Dimer (0-234) ng/mlDDU ABG pO2 (80.0-90.0) mm Hg ABG HCO3 (20.0-26.0) mmol/L ABG Base Excess (-2.0-3.0) mmol/L ABG Hemoglobin (12.0-16.0) gm/dl Potassium 3.5 L (3.6-5.0) mmol/L Chloride 115.7 H (98-107) mmol/L Carbon Dioxide 19 L (22-30) mmol/L BUN 29 H (7-17) mg/dL Creatinine 0.5 L (0.7-1.2) mg/dL Glucose 159 H (65-100) mg/dL POC Glucose 200 H (70-105) Calcium 7.5 L (8.4-10.2) mg/dL AST 1418 H (5-40) units/L ALT 1134 H (7-56) units/L Alkaline Phosphatase 242 H (35-129) units/L Total Protein 4.2 L (6.3-8.2) g/dL Albumin 2.1 L (3.9-5) g/dL Miscellaneous Test Crossmatch 04/02/19 Range/Units 11:18 RBC (3.65-5.03) M/mm3 Hgb (10.1-14.3) gm/dl Hct (30.3-42.9) % RDW (13.2-15.2) % Plt Count (140-440) K/mm3 D-Dimer (0-234) ng/mlDDU ABG pO2 (80.0-90.0) mm Hg ABG HCO3 (20.0-26.0) mmol/L ABG Base Excess (-2.0-3.0) mmol/L ABG Hemoglobin (12.0-16.0) gm/dl Potassium (3.6-5.0) mmol/L Chloride (98-107) mmol/L Carbon Dioxide (22-30) mmol/L BUN (7-17) mg/dL Creatinine (0.7-1.2) mg/dL Glucose (65-100) mg/dL POC Glucose 154 H (70-105) Calcium (8.4-10.2) mg/dL AST (5-40) units/L ALT (7-56) units/L Alkaline Phosphatase (35-129) units/L Total Protein (6.3-8.2) g/dL Albumin (3.9-5) g/dL Miscellaneous Test Crossmatch
--- NOTE | 2019-04-02 15:27 | Progress Note ---
Assessment and Plan Acute respiratory failure - on vent, cont nebs, CC consulted Cardiac arrest s/p resuscitation - likely 2/2 severe hyperglycemia - order 2d echo DKA, severe - BG was >2200 on admission - cont insulin drip. cont iv fluid - monitor BG q1H Shock hypotensive vs sepsis - cont iv fluid, pressor support - follow Cx result, cont Vancomycin, Zosyn, - wean off pressor as tolerated Possible anoxic brain injury - downtime is unknown from cardiac arrest - need to reevl when off sedation - CT head unremarkable Acute renal failure, likely vasomotor nephropathy - cont iv fluid, monitor BMP Hyperkalemia, resolved with fluid and insulin hypokalemia, replete as needed, monitor BMP Shock liver with elevated LFT and Coagulopathy - due to cardiac arrest and hypotension - cont to monitor Hypermagnesemia Hyperphosphatemia - cont to monitor, improved DVT Px, heparin The high probability of a clinically significant, sudden or life threatening deterioration of the [multiple] system(s) required my full and direct attention, intervention and personal management. The aggregate critical care time was [35] minutes. This time is in addition to time spent performing reported procedures but includes the following: [x] Data Review and interpretation [x] Patient assessment and monitoring of vital signs [x] Documentation [x] Medication orders and management Brief History: 28 year old woman with a history of diabetes was brought to the emergency room following a cardiac arrest on spot. Her last well-known time was 10:30 in the morning, she was traveling with a friend, she was unresponsive in the back seat. EMS was called, CPR was started and continued here in the emergency room. Patient was intubated in the ER, noted hypotensive started on dobutamine, epinephrine and Levophed drip, given IV fluids, found to be in DKA with BG ~2200, several metabolic derangements - placed on insulin drip and admitted to ICU. Subjective Date of service: 03/30/19 Principal diagnosis: Ac Hypoxemic Resp Failure; DKA; Severe sepsis with shock; ANGELICA Interval history: Patient seen and examined Patient remained intubated, on multiple pressors no family members around, on sedation discussed with RN at bedside with plan of care Objective - Exam Narrative Exam: General appearance: Present: disheveled, other (intubated, sedated) - EENT Eyes: no congestion ENT: hearing intact, clear oral mucosa Ears: bilateral: normal - Neck Neck: no masses or JVD, no carotid bruits - Respiratory Respiratory effort: other (on mechanical ventilation) Respiratory: bilateral: CTA - Cardiovascular Rhythm: other (tachycardic) Heart Sounds: Present: S1 & S2. Absent: gallop, rub Extremities: pulses intact, No edema, normal color - Gastrointestinal General gastrointestinal: Present: soft, non-distended, normal bowel sounds - Integumentary Integumentary: clear, warm, dry - Musculoskeletal Musculoskeletal: other (no joint swelling) - Neurologic Neurologic: other (unable to assess), does not follow commend - Psychiatric Psychiatric: other (unable to assess) - Constitutional Vitals: Vital Signs - 12hr 04/02/19 04/02/19 04/02/19 03:30 03:45 03:51 Temperature Pulse Rate 86 85 85 Pulse Rate [ From Monitor] Respiratory 21 21 Rate Blood Pressure 97/70 101/69 101/69 O2 Sat by Pulse 100 Oximetry 04/02/19 04/02/19 04/02/19 04:00 04:15 04:30 Temperature 99.1 F Pulse Rate 86 93 H 93 H Pulse Rate [ 85 From Monitor] Respiratory 20 20 22 Rate Blood Pressure 98/68 96/66 96/64 O2 Sat by Pulse 100 Oximetry 04/02/19 04/02/19 04/02/19 04:45 05:00 05:15 Temperature Pulse Rate 90 90 94 H Pulse Rate [ From Monitor] Respiratory 17 23 25 H Rate Blood Pressure 98/67 101/69 100/73 O2 Sat by Pulse 99 Oximetry 04/02/19 04/02/19 04/02/19 05:30 05:45 06:00 Temperature Pulse Rate 90 100 H 88 Pulse Rate [ From Monitor] Respiratory 21 30 H 20 Rate Blood Pressure 101/70 107/78 99/70 O2 Sat by Pulse 99 Oximetry 04/02/19 04/02/19 04/02/19 06:15 06:30 06:45 Temperature Pulse Rate 86 88 85 Pulse Rate [ From Monitor] Respiratory 19 20 20 Rate Blood Pressure 99/66 99/70 97/68 O2 Sat by Pulse 98 Oximetry 04/02/19 04/02/19 04/02/19 07:00 07:15 07:30 Temperature Pulse Rate 95 H 84 91 H Pulse Rate [ From Monitor] Respiratory 25 H 21 25 H Rate Blood Pressure 103/76 99/67 105/74 O2 Sat by Pulse 100 Oximetry 04/02/19 04/02/19 04/02/19 07:36 07:45 08:00 Temperature 98.2 F Pulse Rate 107 H 84 95 H Pulse Rate [ From Monitor] Respiratory 21 22 Rate Blood Pressure 105/74 103/74 103/68 O2 Sat by Pulse 100 Oximetry 04/02/19 04/02/19 04/02/19 08:15 08:30 08:45 Temperature Pulse Rate 102 H 99 H 99 H Pulse Rate [ From Monitor] Respiratory 25 H 22 16 Rate Blood Pressure 105/66 99/57 98/59 O2 Sat by Pulse 100 Oximetry 04/02/19 04/02/19 04/02/19 09:00 09:15 09:30 Temperature Pulse Rate 99 H 106 H 99 H Pulse Rate [ From Monitor] Respiratory 23 28 H 21 Rate Blood Pressure 99/59 103/63 99/56 O2 Sat by Pulse Oximetry 04/02/19 04/02/19 04/02/19 09:45 10:00 10:15 Temperature Pulse Rate 100 H 102 H 122 H Pulse Rate [ From Monitor] Respiratory 22 25 H 38 H Rate Blood Pressure 102/61 108/64 118/78 O2 Sat by Pulse 100 100 Oximetry 04/02/19 04/02/19 04/02/19 10:30 10:45 11:01 Temperature Pulse Rate 102 H 110 H 130 H Pulse Rate [ From Monitor] Respiratory 22 28 H 39 H Rate Blood Pressure 112/54 119/68 134/89 O2 Sat by Pulse 100 Oximetry 04/02/19 04/02/19 11:56 12:00 Temperature 98.3 F Pulse Rate 131 H Pulse Rate [ From Monitor] Respiratory Rate Blood Pressure 108/43 O2 Sat by Pulse 100 Oximetry - Labs CBC & Chem 7: 04/03/19 03:40 04/03/19 03:40 Labs: Abnormal lab results 03/30/19 03/30/19 04/01/19 Range/Units 03:30 14:00 17:13 RBC (3.65-5.03) M/mm3 Hgb (10.1-14.3) gm/dl Hct (30.3-42.9) % RDW (13.2-15.2) % Plt Count (140-440) K/mm3 D-Dimer (0-234) ng/mlDDU ABG pO2 (80.0-90.0) mm Hg ABG HCO3 (20.0-26.0) mmol/L ABG Base Excess (-2.0-3.0) mmol/L ABG Hemoglobin (12.0-16.0) gm/dl Potassium (3.6-5.0) mmol/L Chloride (98-107) mmol/L Carbon Dioxide (22-30) mmol/L BUN (7-17) mg/dL Creatinine (0.7-1.2) mg/dL Glucose (65-100) mg/dL POC Glucose 69 L (70-105) Calcium (8.4-10.2) mg/dL AST (5-40) units/L ALT (7-56) units/L Alkaline Phosphatase (35-129) units/L Total Protein (6.3-8.2) g/dL Albumin (3.9-5) g/dL Miscellaneous Test Flexitest 1 H Crossmatch See Detail 04/01/19 04/01/19 04/01/19 Range/Units 17:14 18:30 22:50 RBC (3.65-5.03) M/mm3 Hgb (10.1-14.3) gm/dl Hct (30.3-42.9) % RDW (13.2-15.2) % Plt Count (140-440) K/mm3 D-Dimer 5203.68 H (0-234) ng/mlDDU ABG pO2 (80.0-90.0) mm Hg ABG HCO3 (20.0-26.0) mmol/L ABG Base Excess (-2.0-3.0) mmol/L ABG Hemoglobin (12.0-16.0) gm/dl Potassium (3.6-5.0) mmol/L Chloride (98-107) mmol/L Carbon Dioxide (22-30) mmol/L BUN (7-17) mg/dL Creatinine (0.7-1.2) mg/dL Glucose (65-100) mg/dL POC Glucose 128 H 342 H (70-105) Calcium (8.4-10.2) mg/dL AST (5-40) units/L ALT (7-56) units/L Alkaline Phosphatase (35-129) units/L Total Protein (6.3-8.2) g/dL Albumin (3.9-5) g/dL Miscellaneous Test Crossmatch 04/02/19 04/02/19 04/02/19 Range/Units 03:40 03:49 06:50 RBC (3.65-5.03) M/mm3 Hgb (10.1-14.3) gm/dl Hct (30.3-42.9) % RDW (13.2-15.2) % Plt Count (140-440) K/mm3 D-Dimer (0-234) ng/mlDDU ABG pO2 142.8 H (80.0-90.0) mm Hg ABG HCO3 15.5 L (20.0-26.0) mmol/L ABG Base Excess -8.2 L (-2.0-3.0) mmol/L ABG Hemoglobin 8.2 L (12.0-16.0) gm/dl Potassium (3.6-5.0) mmol/L Chloride (98-107) mmol/L Carbon Dioxide (22-30) mmol/L BUN (7-17) mg/dL Creatinine (0.7-1.2) mg/dL Glucose (65-100) mg/dL POC Glucose 247 H 200 H (70-105) Calcium (8.4-10.2) mg/dL AST (5-40) units/L ALT (7-56) units/L Alkaline Phosphatase (35-129) units/L Total Protein (6.3-8.2) g/dL Albumin (3.9-5) g/dL Miscellaneous Test Crossmatch 04/02/19 04/02/19 04/02/19 Range/Units 07:48 07:48 11:18 RBC 2.65 L (3.65-5.03) M/mm3 Hgb 8.6 L (10.1-14.3) gm/dl Hct 25.1 L (30.3-42.9) % RDW 17.6 H (13.2-15.2) % Plt Count 48 L (140-440) K/mm3 D-Dimer (0-234) ng/mlDDU ABG pO2 (80.0-90.0) mm Hg ABG HCO3 (20.0-26.0) mmol/L ABG Base Excess (-2.0-3.0) mmol/L ABG Hemoglobin (12.0-16.0) gm/dl Potassium 3.5 L (3.6-5.0) mmol/L Chloride 115.7 H (98-107) mmol/L Carbon Dioxide 19 L (22-30) mmol/L BUN 29 H (7-17) mg/dL Creatinine 0.5 L (0.7-1.2) mg/dL Glucose 159 H (65-100) mg/dL POC Glucose 154 H (70-105) Calcium 7.5 L (8.4-10.2) mg/dL AST 1418 H (5-40) units/L ALT 1134 H (7-56) units/L Alkaline Phosphatase 242 H (35-129) units/L Total Protein 4.2 L (6.3-8.2) g/dL Albumin 2.1 L (3.9-5) g/dL Miscellaneous Test Crossmatch 04/02/19 Range/Units 14:07 RBC (3.65-5.03) M/mm3 Hgb (10.1-14.3) gm/dl Hct (30.3-42.9) % RDW (13.2-15.2) % Plt Count (140-440) K/mm3 D-Dimer (0-234) ng/mlDDU ABG pO2 (80.0-90.0) mm Hg ABG HCO3 (20.0-26.0) mmol/L ABG Base Excess (-2.0-3.0) mmol/L ABG Hemoglobin (12.0-16.0) gm/dl Potassium (3.6-5.0) mmol/L Chloride (98-107) mmol/L Carbon Dioxide (22-30) mmol/L BUN (7-17) mg/dL Creatinine (0.7-1.2) mg/dL Glucose (65-100) mg/dL POC Glucose 149 H (70-105) Calcium (8.4-10.2) mg/dL AST (5-40) units/L ALT (7-56) units/L Alkaline Phosphatase (35-129) units/L Total Protein (6.3-8.2) g/dL Albumin (3.9-5) g/dL Miscellaneous Test Crossmatch
--- NOTE | 2019-04-02 18:28 | Consultation ---
History of Present Illness Consult date: 04/02/19 Reason for Consult: Altered mental status Chief complaint: Altered mental status History of present illness: Patient is a 28-year-old woman with history of diabetes, polysubstance abuse, history of seizures. She presented on 03/29/2019 after having a cardiac arrest. The patient was given CPR and return to spontaneous circulation. The patient reportedly was driving with a friend from [place] through the [facility], and the friend that was writing with the patient noticed that she was unresponsive in the backseat and stopped at a gas station. EMS was called, and the patient was given CPR. In discussion with the patient's mother, it was noted that the patient has had a previous episode of polysubstance abuse, after which she was reported to have several seizures. Her mother states that after that episode, her baseline of mental status had regressed, and she was having notable cognitive dysfunction at baseline. She is also had several episodes of DKA in the past, and was found to be in DKA on this admission. Patient is reportedly noncompliant with her medications, which causes for her multiple admissions for DKA. Patient was also found to have aspiration pneumonia, sepsis, shock, and acute liver failure during this admission. The patient reportedly was previously on Keppra for seizures, however she was noncompliant with this medication. Patient was noted to have a seizure-like event. This admission as well, for which she was given Ativan and was started on Keppra. Past History Past Medical History: diabetes, other (polysubstance abuse, history of seizures) Past Surgical History: Other (Unable to obtain) Social history: lives with family, IV drug use Family history: other (Unable to obtain) Medications and Allergies Allergies Allergy/AdvReac Type Severity Reaction Status Date / Time quetiapine [From Seroquel] Allergy Rash Verified 03/30/19 11:28 Home Medications Medication Instructions Recorded Confirmed Last Taken Type ALPRAZolam [Xanax TAB] 0.25 mg PO QID 04/02/19 04/02/19 Unknown History HYDROcodone/APAP 7.5-325 7.5 - 325 mg PO Q6H PRN 04/02/19 04/02/19 Unknown Hi story Insulin Aspart [NovoLOG 100 5 units SQ QAC 04/02/19 04/02/19 Unknown History UNITS/ML VIAL] Insulin Detemir [Levemir VIAL] 5 unit SQ BID 04/02/19 04/02/19 Unknown History Lurasidone HCl [Latuda] 80 mg PO QHS 04/02/19 04/02/19 Unknown History Ondansetron [Zofran TAB] 4 mg PO BID PRN 04/02/19 04/02/19 Unknown History Active Meds: Active Medications Acetaminophen (Tylenol) 650 mg PO Q4H PRN PRN Reason: Pain MILD(1-3)/Fever >100.5/WARE Last Admin: 04/01/19 23:38 Dose: 650 mg Documented by: Lipase/Protease/Amylase (Pancrerfanco Dr 10,500 Unit) 1 each FEEDTUBE PRN PRN PRN Reason: For Clogged Feeding Tube Dextrose (D50w (25gm) Syringe) 0 ml IV PRN PRN PRN Reason: Hypoglycemia Last Admin: 03/31/19 02:15 Dose: 10 ml Documented by: Famotidine (Pepcid) 20 mg PO BID ZAMZAM Last Admin: 04/02/19 10:06 Dose: 20 mg Documented by: Fentanyl (Sublimaze) 50 mcg IV Q10MIN PRN PRN Reason: ANALGESIA Hydrophilic Ointment (Vaseline Lip Therapy) 1 applic TP Q2HR PRN PRN Reason: Dry Lips Norepinephrine (Levophed Drip 4 Mg/Ns 250 Ml) 4 mg in 250 mls @ 7.5 mls/hr IV TITR ZAMZAM; Protocol Last Titration: 04/01/19 19:00 Dose: 0 mcg/min, 0 mls/hr Documented by: Vasopressin 20 unit/ Sodium (Chloride) 101 mls @ 9.09 mls/hr IV TITR ZAMZAM; Protocol Last Titration: 04/02/19 07:45 Dose: 0 units/min, 0 mls/hr Documented by: Phenylephrine HCl 100 mg/ (Sodium Chloride) 100 mls @ 3 mls/hr IV TITR ZAMZAM; Protocol Last Titration: 03/30/19 15:15 Dose: 0 mcg/min, 0 mls/hr Documented by: Fentanyl Citrate (Fentanyl Drip Premix) 2,000 mcg in 100 mls @ 2.2 mls/hr IV TITR ZAMZAM; Protocol Last Admin: 04/02/19 13:25 Dose: 1 mcg/kg/hr, 2.2 mls/hr Documented by: Levetiracetam 500 mg/ Dextrose 105 mls @ 400 mls/hr IV Q12HR [facility] Stop: 04/02/19 23:59 Last Admin: 04/02/19 10:06 Dose: 400 mls/hr Documented by: Metronidazole (Flagyl 500 Mg/100 Ml) 500 mg in 100 mls @ 100 mls/hr IV Q8HR ZAMZAM Last Admin: 04/02/19 13:35 Dose: 100 mls/hr Documented by: Midazolam HCl 100 mg/ Sodium (Chloride) 100 mls @ 2 mls/hr IV TITR ZAMZAM; Protocol Cefepime HCl (Maxipime/Ns 2 Gm/100 Ml) 2 gm in 100 mls @ 200 mls/hr IV Q8HR ZAMZAM Last Admin: 04/02/19 13:35 Dose: 200 mls/hr Documented by: Insulin Glargine (Lantus) 5 units SUB-Q QHS ZAMZAM Insulin Human Regular (Humulin R) 0 units SUB-Q Q4H ZAMZAM; Protocol Last Admin: 04/02/19 18:17 Dose: 2 units Documented by: Levetiracetam (Keppra) 500 mg PO BID [facility] Midazolam HCl (Versed) 2 mg IV Q10MIN PRN PRN Reason: Sedation Multi-Ingred Cream/Lotion/Oil/Oint (Artificial Tears Ophth Oint) 1 applic OU Q4HR PRN PRN Reason: Dry Eye(s) Last Admin: 03/31/19 04:28 Dose: 1 applic Documented by: Ondansetron HCl (Zofran) 4 mg IV Q8H PRN PRN Reason: Nausea And Vomiting Simple Syrup (Simple Syrup) 15 ml FEEDTUBE PRN PRN PRN Reason: Hypoglycemia Simple Syrup (Simple Syrup) 30 ml FEEDTUBE PRN PRN PRN Reason: Hypoglycemia Sodium Bicarbonate (Sodium Bicarbonate) 325 mg FEEDTUBE PRN PRN PRN Reason: For Clogged Feeding Tube Sodium Chloride (Sodium Chloride Flush Syringe 10 Ml) 10 ml IV BID [facility] Last Admin: 04/01/19 21:12 Dose: 10 ml Documented by: Sodium Chloride (Sodium Chloride Flush Syringe 10 Ml) 10 ml IV PRN PRN PRN Reason: LINE FLUSH Review of Systems ROS unobtainable: due to mental status Physical Examination - Vital Signs Vital Signs: Vital Signs Pulse Resp BP 96 H 16 69/33 03/29/19 19:15 03/29/19 19:15 03/29/19 19:15 - Physical Exam Narrative exam: Patient is intubated, comatose. Pupils are equal, round, sluggishly reactive to light. Corneal reflexes are intact. Cough reflex is intact. Patient withdraws to pain in all extremities. - Constitutional General appearance: acutely ill - EENT EENT: Present: ATNC, PERRL, mucous membranes moist - Respiratory Respiratory: Present: decreased breath sounds - Cardiovascular Cardiovascular: Present: regular rate, normal S1, normal S2 Extremities: Present: no clubbing, cyanosis - Gastrointestinal Gastrointestinal: Present: normoactive bowel sounds, soft, non-tender - Integumentary Integumentary: Present: normal - Neurologic Cranial nerve examination: PERRL Reflexes: 3+: ankle, bicep, knee, tricep Results - Laboratory Findings CBC and BMP: 04/02/19 07:48 04/02/19 07:48 Abnormal Lab Findings: Abnormal Labs 03/29/19 03/29/19 03/29/19 19:20 19:20 19:20 WBC 26.7 H RBC 2.52 L Hgb 8.1 L Hct MCV 148 H MCH MCHC 22 L RDW 18.5 H Plt Count Seg Neuts % (Manual) 82.0 H Lymphocytes % (Manual) 7.0 L Nucleated RBC % Seg Neutrophils # Man 21.9 H Lymphocytes # (Manual) Monocytes # (Manual) 1.9 H PT 21.8 H INR 1.95 H APTT 74.5 H* D-Dimer POC ABG pH ABG pH POC ABG pO2 ABG pO2 ABG HCO3 ABG O2 Saturation ABG Base Excess ABG Hemoglobin VBG pH Oxyhemoglobin Sodium 118 L* Potassium 9.0 H* Chloride 64.5 L Carbon Dioxide 7 L* BUN 53 H Creatinine 2.1 H Glucose 2196 H* POC Glucose Lactic Acid Calcium 12.4 H* Phosphorus Magnesium Iron TIBC Direct Bilirubin AST 3900 H ALT 1034 H Alkaline Phosphatase 316 H Total Creatine Kinase CK-MB (CK-2) C-Reactive Protein Total Protein 5.1 L Albumin 2.8 L Vitamin B12 Salicylates Acetaminophen Miscellaneous Test Crossmatch 03/29/19 03/29/19 03/29/19 19:47 20:59 22:45 WBC RBC Hgb Hct MCV MCH MCHC RDW Plt Count Seg Neuts % (Manual) Lymphocytes % (Manual) Nucleated RBC % Seg Neutrophils # Man Lymphocytes # (Manual) Monocytes # (Manual) PT INR APTT D-Dimer POC ABG pH 6.892 L ABG pH POC ABG pO2 236 H ABG pO2 ABG HCO3 ABG O2 Saturation ABG Base Excess ABG Hemoglobin VBG pH 6.800 L* Oxyhemoglobin Sodium 132 L D Potassium 7.0 H* Chloride 84.3 L Carbon Dioxide 3 L* BUN 48 H Creatinine 1.8 H Glucose 1779 H* POC Glucose Lactic Acid Calcium Phosphorus Magnesium Iron TIBC Direct Bilirubin AST ALT Alkaline Phosphatase Total Creatine Kinase CK-MB (CK-2) C-Reactive Protein Total Protein Albumin Vitamin B12 Salicylates Acetaminophen Miscellaneous Test Crossmatch 03/29/19 03/29/19 03/29/19 22:45 22:45 Unknown WBC RBC Hgb Hct MCV MCH MCHC RDW Plt Count Seg Neuts % (Manual) Lymphocytes % (Manual) Nucleated RBC % Seg Neutrophils # Man Lymphocytes # (Manual) Monocytes # (Manual) PT INR APTT D-Dimer POC ABG pH ABG pH POC ABG pO2 ABG pO2 ABG HCO3 ABG O2 Saturation ABG Base Excess ABG Hemoglobin VBG pH Oxyhemoglobin Sodium Potassium Chloride Carbon Dioxide BUN Creatinine Glucose POC Glucose Lactic Acid Calcium Phosphorus 21.70 H 19.30 H Magnesium 4.70 H 3.90 H Iron TIBC Direct Bilirubin AST ALT Alkaline Phosphatase Total Creatine Kinase 363 H CK-MB (CK-2) C-Reactive Protein Total Protein Albumin Vitamin B12 Salicylates Acetaminophen Miscellaneous Test Crossmatch 03/29/19 03/30/19 03/30/19 Unknown 00:11 00:11 WBC RBC Hgb Hct MCV MCH MCHC RDW Plt Count Seg Neuts % (Manual) Lymphocytes % (Manual) Nucleated RBC % Seg Neutrophils # Man Lymphocytes # (Manual) Monocytes # (Manual) PT INR APTT D-Dimer POC ABG pH ABG pH POC ABG pO2 ABG pO2 ABG HCO3 ABG O2 Saturation ABG Base Excess ABG Hemoglobin VBG pH Oxyhemoglobin Sodium 122 L Potassium 7.9 H* 6.4 H* Chloride 75.3 L 89.7 L Carbon Dioxide 3 L* 12 L D BUN 52 H 46 H Creatinine 2.0 H 1.7 H Glucose 2043 H* 1591 H* POC Glucose Lactic Acid Calcium 7.8 L Phosphorus 10.90 H D Magnesium 3.10 H Iron TIBC Direct Bilirubin AST ALT Alkaline Phosphatase Total Creatine Kinase CK-MB (CK-2) C-Reactive Protein Total Protein Albumin Vitamin B12 Salicylates Acetaminophen Miscellaneous Test Crossmatch 03/30/19 03/30/19 03/30/19 02:14 02:14 03:15 WBC RBC Hgb Hct MCV MCH MCHC RDW Plt Count Seg Neuts % (Manual) Lymphocytes % (Manual) Nucleated RBC % Seg Neutrophils # Man Lymphocytes # (Manual) Monocytes # (Manual) PT INR APTT D-Dimer POC ABG pH 7.251 L ABG pH POC ABG pO2 156 H ABG pO2 ABG HCO3 ABG O2 Saturation ABG Base Excess ABG Hemoglobin VBG pH Oxyhemoglobin Sodium Potassium Chloride Carbon Dioxide 9 L* BUN 45 H Creatinine 1.7 H Glucose 1155 H* POC Glucose Lactic Acid Calcium 7.9 L Phosphorus 5.30 H D Magnesium 2.90 H Iron TIBC Direct Bilirubin AST ALT Alkaline Phosphatase Total Creatine Kinase CK-MB (CK-2) C-Reactive Protein Total Protein Albumin Vitamin B12 Salicylates Acetaminophen Miscellaneous Test Crossmatch 03/30/19 03/30/19 03/30/19 03:30 04:23 05:26 WBC 18.0 H RBC 2.31 L Hgb 7.3 L Hct 23.8 L D MCV 103 H MCH MCHC RDW 17.1 H Plt Count Seg Neuts % (Manual) 79.0 H Lymphocytes % (Manual) Nucleated RBC % Seg Neutrophils # Man 14.2 H Lymphocytes # (Manual) Monocytes # (Manual) PT INR APTT D-Dimer POC ABG pH ABG pH POC ABG pO2 ABG pO2 ABG HCO3 ABG O2 Saturation ABG Base Excess ABG Hemoglobin VBG pH Oxyhemoglobin Sodium Potassium Chloride Carbon Dioxide BUN Creatinine Glucose POC Glucose Lactic Acid Calcium Phosphorus Magnesium 2.60 H Iron TIBC Direct Bilirubin AST ALT Alkaline Phosphatase Total Creatine Kinase 2465 H CK-MB (CK-2) 52.7 H C-Reactive Protein Total Protein Albumin Vitamin B12 Salicylates Acetaminophen Miscellaneous Test Crossmatch See Detail 03/30/19 03/30/19 03/30/19 05:26 10:38 11:08 WBC RBC Hgb Hct MCV MCH MCHC RDW Plt Count Seg Neuts % (Manual) Lymphocytes % (Manual) Nucleated RBC % Seg Neutrophils # Man Lymphocytes # (Manual) Monocytes # (Manual) PT INR APTT D-Dimer POC ABG pH ABG pH POC ABG pO2 ABG pO2 ABG HCO3 ABG O2 Saturation ABG Base Excess ABG Hemoglobin VBG pH Oxyhemoglobin Sodium 158 H D Potassium 3.5 L Chloride 109.3 H Carbon Dioxide 19 L D BUN 40 H Creatinine 1.5 H Glucose 760 H* POC Glucose 380 H 263 H Lactic Acid Calcium 7.3 L Phosphorus Magnesium Iron TIBC Direct Bilirubin AST 63574 H ALT 2156 H Alkaline Phosphatase 271 H Total Creatine Kinase CK-MB (CK-2) C-Reactive Protein Total Protein 4.5 L Albumin 2.4 L Vitamin B12 Salicylates Acetaminophen Miscellaneous Test Crossmatch 03/30/19 03/30/19 03/30/19 12:25 12:57 12:57 WBC RBC Hgb Hct MCV MCH MCHC RDW Plt Count Seg Neuts % (Manual) Lymphocytes % (Manual) Nucleated RBC % Seg Neutrophils # Man Lymphocytes # (Manual) Monocytes # (Manual) PT 21.0 H INR 1.86 H APTT D-Dimer POC ABG pH ABG pH POC ABG pO2 ABG pO2 ABG HCO3 ABG O2 Saturation ABG Base Excess ABG Hemoglobin VBG pH Oxyhemoglobin Sodium 156 H Potassium 3.2 L Chloride 116.4 H Carbon Dioxide 21 L BUN 37 H Creatinine Glucose 162 H POC Glucose 196 H Lactic Acid Calcium 7.2 L Phosphorus Magnesium Iron TIBC Direct Bilirubin AST ALT Alkaline Phosphatase Total Creatine Kinase CK-MB (CK-2) C-Reactive Protein Total Protein Albumin Vitamin B12 Salicylates Acetaminophen Miscellaneous Test Crossmatch 03/30/19 03/30/19 03/30/19 12:57 12:57 13:23 WBC RBC Hgb Hct MCV MCH MCHC RDW Plt Count Seg Neuts % (Manual) Lymphocytes % (Manual) Nucleated RBC % Seg Neutrophils # Man Lymphocytes # (Manual) Monocytes # (Manual) PT INR APTT D-Dimer POC ABG pH ABG pH POC ABG pO2 ABG pO2 ABG HCO3 ABG O2 Saturation ABG Base Excess ABG Hemoglobin VBG pH Oxyhemoglobin Sodium Potassium Chloride Carbon Dioxide BUN Creatinine Glucose POC Glucose 176 H Lactic Acid 9.00 H* Calcium Phosphorus Magnesium Iron TIBC Direct Bilirubin AST ALT Alkaline Phosphatase Total Creatine Kinase CK-MB (CK-2) C-Reactive Protein 2.40 H Total Protein Albumin Vitamin B12 Salicylates Acetaminophen Miscellaneous Test Crossmatch 03/30/19 03/30/19 03/30/19 14:00 14:47 16:11 WBC RBC Hgb Hct MCV MCH MCHC RDW Plt Count Seg Neuts % (Manual) Lymphocytes % (Manual) Nucleated RBC % Seg Neutrophils # Man Lymphocytes # (Manual) Monocytes # (Manual) PT INR APTT D-Dimer POC ABG pH ABG pH POC ABG pO2 ABG pO2 ABG HCO3 ABG O2 Saturation ABG Base Excess ABG Hemoglobin VBG pH Oxyhemoglobin Sodium Potassium Chloride Carbon Dioxide BUN Creatinine Glucose POC Glucose 245 H 181 H Lactic Acid Calcium Phosphorus Magnesium Iron TIBC Direct Bilirubin AST ALT Alkaline Phosphatase Total Creatine Kinase CK-MB (CK-2) C-Reactive Protein Total Protein Albumin Vitamin B12 Salicylates Acetaminophen Miscellaneous Test Flexitest 1 H Crossmatch 03/30/19 03/30/19 03/30/19 17:11 17:46 18:59 WBC RBC Hgb Hct MCV MCH MCHC RDW Plt Count Seg Neuts % (Manual) Lymphocytes % (Manual) Nucleated RBC % Seg Neutrophils # Man Lymphocytes # (Manual) Monocytes # (Manual) PT INR APTT D-Dimer POC ABG pH ABG pH POC ABG pO2 ABG pO2 ABG HCO3 ABG O2 Saturation ABG Base Excess ABG Hemoglobin VBG pH Oxyhemoglobin Sodium Potassium Chloride Carbon Dioxide BUN Creatinine Glucose POC Glucose 167 H 125 H 140 H Lactic Acid Calcium Phosphorus Magnesium Iron TIBC Direct Bilirubin AST ALT Alkaline Phosphatase Total Creatine Kinase CK-MB (CK-2) C-Reactive Protein Total Protein Albumin Vitamin B12 Salicylates Acetaminophen Miscellaneous Test Crossmatch 03/30/19 03/30/19 03/30/19 21:31 22:19 23:13 WBC RBC Hgb Hct MCV MCH MCHC RDW Plt Count Seg Neuts % (Manual) Lymphocytes % (Manual) Nucleated RBC % Seg Neutrophils # Man Lymphocytes # (Manual) Monocytes # (Manual) PT INR APTT D-Dimer POC ABG pH ABG pH POC ABG pO2 ABG pO2 ABG HCO3 ABG O2 Saturation ABG Base Excess ABG Hemoglobin VBG pH Oxyhemoglobin Sodium Potassium Chloride Carbon Dioxide BUN Creatinine Glucose POC Glucose 166 H 115 H 112 H Lactic Acid Calcium Phosphorus Magnesium Iron TIBC Direct Bilirubin AST ALT Alkaline Phosphatase Total Creatine Kinase CK-MB (CK-2) C-Reactive Protein Total Protein Albumin Vitamin B12 Salicylates Acetaminophen Miscellaneous Test Crossmatch 03/30/19 03/30/19 03/30/19 Unknown Unknown Unknown WBC RBC Hgb Hct MCV MCH MCHC RDW Plt Count Seg Neuts % (Manual) Lymphocytes % (Manual) Nucleated RBC % Seg Neutrophils # Man Lymphocytes # (Manual) Monocytes # (Manual) PT INR APTT D-Dimer POC ABG pH ABG pH POC ABG pO2 ABG pO2 47.8 L ABG HCO3 18.8 L ABG O2 Saturation 83.8 L ABG Base Excess -5.4 L ABG Hemoglobin 6.8 L VBG pH Oxyhemoglobin 81.8 L Sodium 157 H Potassium 3.3 L Chloride 117.9 H Carbon Dioxide 20 L BUN 36 H Creatinine Glucose 150 H POC Glucose Lactic Acid Calcium 7.2 L Phosphorus Magnesium Iron TIBC Direct Bilirubin AST ALT Alkaline Phosphatase Total Creatine Kinase CK-MB (CK-2) C-Reactive Protein Total Protein Albumin Vitamin B12 Salicylates 0.8 L Acetaminophen Miscellaneous Test Crossmatch 03/30/19 03/31/19 03/31/19 Unknown 00:03 01:18 WBC RBC Hgb Hct MCV MCH MCHC RDW Plt Count Seg Neuts % (Manual) Lymphocytes % (Manual) Nucleated RBC % Seg Neutrophils # Man Lymphocytes # (Manual) Monocytes # (Manual) PT INR APTT D-Dimer POC ABG pH ABG pH POC ABG pO2 ABG pO2 ABG HCO3 ABG O2 Saturation ABG Base Excess ABG Hemoglobin VBG pH Oxyhemoglobin Sodium Potassium Chloride Carbon Dioxide BUN Creatinine Glucose POC Glucose 188 H 114 H Lactic Acid Calcium Phosphorus Magnesium Iron TIBC Direct Bilirubin AST ALT Alkaline Phosphatase Total Creatine Kinase CK-MB (CK-2) C-Reactive Protein Total Protein Albumin Vitamin B12 Salicylates Acetaminophen < 5.0 L Miscellaneous Test Crossmatch 03/31/19 03/31/19 03/31/19 03:07 03:50 03:51 WBC RBC 1.89 L Hgb 6.1 L Hct 18.2 L* MCV MCH MCHC RDW 17.7 H Plt Count 89 L Seg Neuts % (Manual) 86.0 H Lymphocytes % (Manual) 10.0 L Nucleated RBC % 1.0 H Seg Neutrophils # Man Lymphocytes # (Manual) 0.7 L Monocytes # (Manual) PT INR APTT D-Dimer POC ABG pH ABG pH 7.525 H POC ABG pO2 ABG pO2 178.0 H ABG HCO3 19.5 L ABG O2 Saturation 99.2 H ABG Base Excess -3.1 L ABG Hemoglobin 5.8 L VBG pH Oxyhemoglobin Sodium Potassium Chloride Carbon Dioxide BUN Creatinine Glucose POC Glucose 107 H Lactic Acid Calcium Phosphorus Magnesium Iron TIBC Direct Bilirubin AST ALT Alkaline Phosphatase Total Creatine Kinase CK-MB (CK-2) C-Reactive Protein Total Protein Albumin Vitamin B12 Salicylates Acetaminophen Miscellaneous Test Crossmatch 03/31/19 03/31/19 03/31/19 03:51 04:05 05:05 WBC RBC Hgb Hct MCV MCH MCHC RDW Plt Count Seg Neuts % (Manual) Lymphocytes % (Manual) Nucleated RBC % Seg Neutrophils # Man Lymphocytes # (Manual) Monocytes # (Manual) PT INR APTT D-Dimer POC ABG pH ABG pH POC ABG pO2 ABG pO2 ABG HCO3 ABG O2 Saturation ABG Base Excess ABG Hemoglobin VBG pH Oxyhemoglobin Sodium 151 H Potassium 3.2 L Chloride 119.4 H Carbon Dioxide 17 L BUN 35 H Creatinine Glucose 139 H POC Glucose 153 H 176 H Lactic Acid Calcium 7.1 L Phosphorus Magnesium Iron TIBC Direct Bilirubin AST ALT Alkaline Phosphatase Total Creatine Kinase CK-MB (CK-2) C-Reactive Protein Total Protein Albumin Vitamin B12 Salicylates Acetaminophen Miscellaneous Test Crossmatch 03/31/19 03/31/19 03/31/19 05:35 06:23 07:50 WBC RBC Hgb Hct MCV MCH MCHC RDW Plt Count Seg Neuts % (Manual) Lymphocytes % (Manual) Nucleated RBC % Seg Neutrophils # Man Lymphocytes # (Manual) Monocytes # (Manual) PT INR APTT D-Dimer POC ABG pH ABG pH POC ABG pO2 ABG pO2 ABG HCO3 ABG O2 Saturation ABG Base Excess ABG Hemoglobin VBG pH Oxyhemoglobin Sodium Potassium Chloride Carbon Dioxide BUN Creatinine Glucose POC Glucose 133 H Lactic Acid 3.20 H* 3.30 H* Calcium Phosphorus Magnesium Iron TIBC Direct Bilirubin AST ALT Alkaline Phosphatase Total Creatine Kinase CK-MB (CK-2) C-Reactive Protein Total Protein Albumin Vitamin B12 Salicylates Acetaminophen Miscellaneous Test Crossmatch 03/31/19 03/31/19 03/31/19 07:51 08:20 08:20 WBC RBC Hgb Hct MCV MCH MCHC RDW Plt Count Seg Neuts % (Manual) Lymphocytes % (Manual) Nucleated RBC % Seg Neutrophils # Man Lymphocytes # (Manual) Monocytes # (Manual) PT INR APTT D-Dimer POC ABG pH ABG pH POC ABG pO2 ABG pO2 ABG HCO3 ABG O2 Saturation ABG Base Excess ABG Hemoglobin VBG pH Oxyhemoglobin Sodium Potassium Chloride Carbon Dioxide BUN Creatinine Glucose POC Glucose 135 H Lactic Acid Calcium Phosphorus Magnesium Iron 26 L TIBC 193 L Direct Bilirubin AST ALT Alkaline Phosphatase Total Creatine Kinase CK-MB (CK-2) C-Reactive Protein Total Protein Albumin Vitamin B12 > 2000 H Salicylates Acetaminophen Miscellaneous Test Crossmatch 03/31/19 03/31/19 03/31/19 08:20 09:06 10:47 WBC RBC Hgb Hct MCV MCH MCHC RDW Plt Count Seg Neuts % (Manual) Lymphocytes % (Manual) Nucleated RBC % Seg Neutrophils # Man Lymphocytes # (Manual) Monocytes # (Manual) PT INR APTT D-Dimer POC ABG pH ABG pH POC ABG pO2 ABG pO2 ABG HCO3 ABG O2 Saturation ABG Base Excess ABG Hemoglobin VBG pH Oxyhemoglobin Sodium 153 H Potassium 3.0 L Chloride 118.9 H Carbon Dioxide 18 L BUN 37 H Creatinine Glucose 132 H POC Glucose 145 H 153 H Lactic Acid Calcium 7.1 L Phosphorus Magnesium Iron TIBC Direct Bilirubin AST ALT Alkaline Phosphatase Total Creatine Kinase CK-MB (CK-2) C-Reactive Protein Total Protein Albumin Vitamin B12 Salicylates Acetaminophen Miscellaneous Test Crossmatch 03/31/19 03/31/19 03/31/19 11:49 13:04 13:42 WBC RBC Hgb Hct MCV MCH MCHC RDW Plt Count Seg Neuts % (Manual) Lymphocytes % (Manual) Nucleated RBC % Seg Neutrophils # Man Lymphocytes # (Manual) Monocytes # (Manual) PT INR APTT D-Dimer POC ABG pH ABG pH POC ABG pO2 ABG pO2 ABG HCO3 ABG O2 Saturation ABG Base Excess ABG Hemoglobin VBG pH Oxyhemoglobin Sodium Potassium Chloride Carbon Dioxide BUN Creatinine Glucose POC Glucose 174 H 214 H 186 H Lactic Acid Calcium Phosphorus Magnesium Iron TIBC Direct Bilirubin AST ALT Alkaline Phosphatase Total Creatine Kinase CK-MB (CK-2) C-Reactive Protein Total Protein Albumin Vitamin B12 Salicylates Acetaminophen Miscellaneous Test Crossmatch 03/31/19 03/31/19 03/31/19 15:08 16:08 17:11 WBC RBC Hgb Hct MCV MCH MCHC RDW Plt Count Seg Neuts % (Manual) Lymphocytes % (Manual) Nucleated RBC % Seg Neutrophils # Man Lymphocytes # (Manual) Monocytes # (Manual) PT INR APTT D-Dimer POC ABG pH ABG pH POC ABG pO2 ABG pO2 ABG HCO3 ABG O2 Saturation ABG Base Excess ABG Hemoglobin VBG pH Oxyhemoglobin Sodium Potassium Chloride Carbon Dioxide BUN Creatinine Glucose POC Glucose 136 H 150 H 140 H Lactic Acid Calcium Phosphorus Magnesium Iron TIBC Direct Bilirubin AST ALT Alkaline Phosphatase Total Creatine Kinase CK-MB (CK-2) C-Reactive Protein Total Protein Albumin Vitamin B12 Salicylates Acetaminophen Miscellaneous Test Crossmatch 03/31/19 03/31/19 03/31/19 17:30 17:30 17:59 WBC RBC Hgb 7.7 L Hct 23.0 L MCV MCH MCHC RDW Plt Count Seg Neuts % (Manual) Lymphocytes % (Manual) Nucleated RBC % Seg Neutrophils # Man Lymphocytes # (Manual) Monocytes # (Manual) PT INR APTT D-Dimer POC ABG pH ABG pH POC ABG pO2 ABG pO2 ABG HCO3 ABG O2 Saturation ABG Base Excess ABG Hemoglobin VBG pH Oxyhemoglobin Sodium 153 H Potassium 3.5 L Chloride 119.3 H Carbon Dioxide 20 L BUN 34 H Creatinine Glucose 162 H POC Glucose 156 H Lactic Acid Calcium 7.6 L Phosphorus Magnesium Iron TIBC Direct Bilirubin AST ALT Alkaline Phosphatase Total Creatine Kinase CK-MB (CK-2) C-Reactive Protein Total Protein Albumin Vitamin B12 Salicylates Acetaminophen Miscellaneous Test Crossmatch 03/31/19 03/31/19 03/31/19 18:58 20:28 21:09 WBC RBC Hgb Hct MCV MCH MCHC RDW Plt Count Seg Neuts % (Manual) Lymphocytes % (Manual) Nucleated RBC % Seg Neutrophils # Man Lymphocytes # (Manual) Monocytes # (Manual) PT INR APTT D-Dimer POC ABG pH ABG pH POC ABG pO2 ABG pO2 ABG HCO3 ABG O2 Saturation ABG Base Excess ABG Hemoglobin VBG pH Oxyhemoglobin Sodium Potassium Chloride Carbon Dioxide BUN Creatinine Glucose POC Glucose 152 H 138 H 136 H Lactic Acid Calcium Phosphorus Magnesium Iron TIBC Direct Bilirubin AST ALT Alkaline Phosphatase Total Creatine Kinase CK-MB (CK-2) C-Reactive Protein Total Protein Albumin Vitamin B12 Salicylates Acetaminophen Miscellaneous Test Crossmatch 03/31/19 03/31/19 04/01/19 22:15 23:10 00:05 WBC RBC Hgb Hct MCV MCH MCHC RDW Plt Count Seg Neuts % (Manual) Lymphocytes % (Manual) Nucleated RBC % Seg Neutrophils # Man Lymphocytes # (Manual) Monocytes # (Manual) PT INR APTT D-Dimer POC ABG pH ABG pH POC ABG pO2 ABG pO2 ABG HCO3 ABG O2 Saturation ABG Base Excess ABG Hemoglobin VBG pH Oxyhemoglobin Sodium Potassium Chloride Carbon Dioxide BUN Creatinine Glucose POC Glucose 137 H 148 H 143 H Lactic Acid Calcium Phosphorus Magnesium Iron TIBC Direct Bilirubin AST ALT Alkaline Phosphatase Total Creatine Kinase CK-MB (CK-2) C-Reactive Protein Total Protein Albumin Vitamin B12 Salicylates Acetaminophen Miscellaneous Test Crossmatch 04/01/19 04/01/19 04/01/19 01:17 02:11 03:12 WBC RBC Hgb Hct MCV MCH MCHC RDW Plt Count Seg Neuts % (Manual) Lymphocytes % (Manual) Nucleated RBC % Seg Neutrophils # Man Lymphocytes # (Manual) Monocytes # (Manual) PT INR APTT D-Dimer POC ABG pH ABG pH POC ABG pO2 ABG pO2 ABG HCO3 ABG O2 Saturation ABG Base Excess ABG Hemoglobin VBG pH Oxyhemoglobin Sodium Potassium Chloride Carbon Dioxide BUN Creatinine Glucose POC Glucose 151 H 155 H 140 H Lactic Acid Calcium Phosphorus Magnesium Iron TIBC Direct Bilirubin AST ALT Alkaline Phosphatase Total Creatine Kinase CK-MB (CK-2) C-Reactive Protein Total Protein Albumin Vitamin B12 Salicylates Acetaminophen Miscellaneous Test Crossmatch 04/01/19 04/01/19 04/01/19 04:03 04:16 05:01 WBC RBC 2.05 L Hgb 6.8 L Hct 20.5 L MCV 100 H MCH 33 H MCHC RDW 17.7 H Plt Count 53 L Seg Neuts % (Manual) 71.0 H Lymphocytes % (Manual) Nucleated RBC % Seg Neutrophils # Man Lymphocytes # (Manual) Monocytes # (Manual) PT INR APTT D-Dimer POC ABG pH ABG pH POC ABG pO2 ABG pO2 ABG HCO3 ABG O2 Saturation ABG Base Excess ABG Hemoglobin VBG pH Oxyhemoglobin Sodium Potassium Chloride Carbon Dioxide BUN Creatinine Glucose POC Glucose 143 H 142 H Lactic Acid Calcium Phosphorus Magnesium Iron TIBC Direct Bilirubin AST ALT Alkaline Phosphatase Total Creatine Kinase CK-MB (CK-2) C-Reactive Protein Total Protein Albumin Vitamin B12 Salicylates Acetaminophen Miscellaneous Test Crossmatch 04/01/19 04/01/19 04/01/19 05:01 05:08 05:23 WBC RBC Hgb Hct MCV MCH MCHC RDW Plt Count Seg Neuts % (Manual) Lymphocytes % (Manual) Nucleated RBC % Seg Neutrophils # Man Lymphocytes # (Manual) Monocytes # (Manual) PT INR APTT D-Dimer POC ABG pH ABG pH POC ABG pO2 ABG pO2 ABG HCO3 ABG O2 Saturation ABG Base Excess ABG Hemoglobin VBG pH Oxyhemoglobin Sodium Potassium Chloride Carbon Dioxide BUN Creatinine Glucose POC Glucose 119 H 115 H Lactic Acid Calcium Phosphorus Magnesium Iron TIBC Direct Bilirubin 0.3 H AST 4601 H ALT 1542 H Alkaline Phosphatase 185 H Total Creatine Kinase CK-MB (CK-2) C-Reactive Protein Total Protein 3.8 L Albumin 1.6 L Vitamin B12 Salicylates Acetaminophen Miscellaneous Test Crossmatch 04/01/19 04/01/19 04/01/19 06:37 08:15 09:50 WBC RBC Hgb 6.5 L Hct 19.2 L* MCV MCH MCHC RDW Plt Count Seg Neuts % (Manual) Lymphocytes % (Manual) Nucleated RBC % Seg Neutrophils # Man Lymphocytes # (Manual) Monocytes # (Manual) PT INR APTT D-Dimer POC ABG pH ABG pH POC ABG pO2 ABG pO2 ABG HCO3 ABG O2 Saturation ABG Base Excess ABG Hemoglobin VBG pH Oxyhemoglobin Sodium Potassium Chloride Carbon Dioxide BUN Creatinine Glucose POC Glucose 124 H 138 H Lactic Acid Calcium Phosphorus Magnesium Iron TIBC Direct Bilirubin AST ALT Alkaline Phosphatase Total Creatine Kinase CK-MB (CK-2) C-Reactive Protein Total Protein Albumin Vitamin B12 Salicylates Acetaminophen Miscellaneous Test Crossmatch 04/01/19 04/01/19 04/01/19 10:10 10:31 11:35 WBC RBC Hgb Hct MCV MCH MCHC RDW Plt Count Seg Neuts % (Manual) Lymphocytes % (Manual) Nucleated RBC % Seg Neutrophils # Man Lymphocytes # (Manual) Monocytes # (Manual) PT INR APTT D-Dimer POC ABG pH ABG pH POC ABG pO2 ABG pO2 ABG HCO3 ABG O2 Saturation ABG Base Excess ABG Hemoglobin VBG pH Oxyhemoglobin Sodium 149 H Potassium 3.5 L Chloride 119.9 H Carbon Dioxide 21 L BUN 33 H Creatinine 0.5 L Glucose 142 H POC Glucose 185 H 201 H Lactic Acid Calcium 7.3 L Phosphorus Magnesium Iron TIBC Direct Bilirubin AST 3686 H ALT 1440 H Alkaline Phosphatase 185 H Total Creatine Kinase CK-MB (CK-2) C-Reactive Protein Total Protein 3.7 L Albumin 1.8 L Vitamin B12 Salicylates Acetaminophen Miscellaneous Test Crossmatch 04/01/19 04/01/19 04/01/19 13:05 14:35 17:13 WBC RBC Hgb Hct MCV MCH MCHC RDW Plt Count Seg Neuts % (Manual) Lymphocytes % (Manual) Nucleated RBC % Seg Neutrophils # Man Lymphocytes # (Manual) Monocytes # (Manual) PT INR APTT D-Dimer POC ABG pH ABG pH POC ABG pO2 ABG pO2 ABG HCO3 ABG O2 Saturation ABG Base Excess ABG Hemoglobin VBG pH Oxyhemoglobin Sodium Potassium Chloride Carbon Dioxide BUN Creatinine Glucose POC Glucose 169 H 134 H 69 L Lactic Acid Calcium Phosphorus Magnesium Iron TIBC Direct Bilirubin AST ALT Alkaline Phosphatase Total Creatine Kinase CK-MB (CK-2) C-Reactive Protein Total Protein Albumin Vitamin B12 Salicylates Acetaminophen Miscellaneous Test Crossmatch 04/01/19 04/01/19 04/01/19 17:14 18:30 22:50 WBC RBC Hgb Hct MCV MCH MCHC RDW Plt Count Seg Neuts % (Manual) Lymphocytes % (Manual) Nucleated RBC % Seg Neutrophils # Man Lymphocytes # (Manual) Monocytes # (Manual) PT INR APTT D-Dimer 5203.68 H POC ABG pH ABG pH POC ABG pO2 ABG pO2 ABG HCO3 ABG O2 Saturation ABG Base Excess ABG Hemoglobin VBG pH Oxyhemoglobin Sodium Potassium Chloride Carbon Dioxide BUN Creatinine Glucose POC Glucose 128 H 342 H Lactic Acid Calcium Phosphorus Magnesium Iron TIBC Direct Bilirubin AST ALT Alkaline Phosphatase Total Creatine Kinase CK-MB (CK-2) C-Reactive Protein Total Protein Albumin Vitamin B12 Salicylates Acetaminophen Miscellaneous Test Crossmatch 04/01/19 04/02/19 04/02/19 Unknown 03:40 03:49 WBC RBC Hgb Hct MCV MCH MCHC RDW Plt Count Seg Neuts % (Manual) Lymphocytes % (Manual) Nucleated RBC % Seg Neutrophils # Man Lymphocytes # (Manual) Monocytes # (Manual) PT INR APTT D-Dimer POC ABG pH ABG pH POC ABG pO2 ABG pO2 78.3 L 142.8 H ABG HCO3 15.5 L ABG O2 Saturation ABG Base Excess -3.5 L -8.2 L ABG Hemoglobin 6.8 L 8.2 L VBG pH Oxyhemoglobin 94.3 L Sodium Potassium Chloride Carbon Dioxide BUN Creatinine Glucose POC Glucose 247 H Lactic Acid Calcium Phosphorus Magnesium Iron TIBC Direct Bilirubin AST ALT Alkaline Phosphatase Total Creatine Kinase CK-MB (CK-2) C-Reactive Protein Total Protein Albumin Vitamin B12 Salicylates Acetaminophen Miscellaneous Test Crossmatch 04/02/19 04/02/19 04/02/19 06:50 07:48 07:48 WBC RBC 2.65 L Hgb 8.6 L Hct 25.1 L MCV MCH MCHC RDW 17.6 H Plt Count 48 L Seg Neuts % (Manual) Lymphocytes % (Manual) Nucleated RBC % Seg Neutrophils # Man Lymphocytes # (Manual) Monocytes # (Manual) PT INR APTT D-Dimer POC ABG pH ABG pH POC ABG pO2 ABG pO2 ABG HCO3 ABG O2 Saturation ABG Base Excess ABG Hemoglobin VBG pH Oxyhemoglobin Sodium Potassium 3.5 L Chloride 115.7 H Carbon Dioxide 19 L BUN 29 H Creatinine 0.5 L Glucose 159 H POC Glucose 200 H Lactic Acid Calcium 7.5 L Phosphorus Magnesium Iron TIBC Direct Bilirubin AST 1418 H ALT 1134 H Alkaline Phosphatase 242 H Total Creatine Kinase CK-MB (CK-2) C-Reactive Protein Total Protein 4.2 L Albumin 2.1 L Vitamin B12 Salicylates Acetaminophen Miscellaneous Test Crossmatch 04/02/19 04/02/19 11:18 14:07 WBC RBC Hgb Hct MCV MCH MCHC RDW Plt Count Seg Neuts % (Manual) Lymphocytes % (Manual) Nucleated RBC % Seg Neutrophils # Man Lymphocytes # (Manual) Monocytes # (Manual) PT INR APTT D-Dimer POC ABG pH ABG pH POC ABG pO2 ABG pO2 ABG HCO3 ABG O2 Saturation ABG Base Excess ABG Hemoglobin VBG pH Oxyhemoglobin Sodium Potassium Chloride Carbon Dioxide BUN Creatinine Glucose POC Glucose 154 H 149 H Lactic Acid Calcium Phosphorus Magnesium Iron TIBC Direct Bilirubin AST ALT Alkaline Phosphatase Total Creatine Kinase CK-MB (CK-2) C-Reactive Protein Total Protein Albumin Vitamin B12 Salicylates Acetaminophen Miscellaneous Test Crossmatch Assessment and Plan Patient is a 28-year-old woman with history of diabetes, polysubstance abuse, h istory of seizures. She presented on 03/29/2019 after having a cardiac arrest. The patient was given CPR and return to spontaneous circulation. According the patient's clinical findings, it is likely that she's had anoxic brain injury. Additionally, the patient has a history of seizures, and was noted to have a seizure-like event during this admission. Plan: 1. Anoxic brain injury: - CT head unremarkable - Check MRI brain for evidence of anoxic injury - Continue supportive care per ICU and primary teams - I discussed at length the patient's mother regarding her prognosis and plan of care. The patient's mother stated that the patient had made clear in the past that she did not want to have a tracheostomy or a PEG tube placed in the future if her chance of recovery was minimal, she has had this in the past with previous illnesses. I discussed with the mother regarding prognosis, and that at this time it is uncertain as to the extent of neurologic recovery she will have, and the timeline that that recovery will occur within. I further discussed that the patient currently displays evidence of brainstem reflexes which are intact, and that the patient is therefore not brain . 2. History of seizures: - Check EEG - Continue keppra 3. Aspiration PNA/Acute liver failure/Sepsis/Shock: - Continue supportive care per ICU/ID/primary teams - Will continue to follow patient. - Thank you for allowing me to take part in the care of this patient. Lorenzo Farley MD Neurology
[2019-04-02] MEDS: SODIUM CHLORIDE FLUSH SYRINGE 10 ML IV SCH ×2 (19:20→21:35)
[2019-04-02] MEDS: LANTUS SUB-Q SCH (21:28)
[2019-04-03] MEDS: HumuLIN R SUB-Q SCH ×6 (03:01→23:03)
[2019-04-03] MEDS: CEFEPIME/NS 2 GM/100 ML 2 GM/100 ML BAG IV SCH ×3 (05:01→21:25)
[2019-04-03] MEDS: FLAGYL 500 MG/100 ML 500 MG/100 ML BAG IV SCH ×3 (05:06→21:25)
[2019-04-03 05:07] LABS: Basophils % (Auto) 0.4 % (0.0-1.8); Eosinophils # (Auto) 0.2 K/mm3 (0.0-0.4); Eosinophils % (Auto) 3.2 % (0.0-4.3); Hemoglobin 9.3 gm/dl (10.1-14.3); Lymphocytes # (Auto) 1.1 K/mm3 (1.2-5.4); Lymphocytes % (Auto) 16.9 % (13.4-35.0); Mean Corpuscular HGB Conc 34 % (30-34); Mean Corpuscular Volume 94 fl (79-97); Monocytes # (Auto) 0.6 K/mm3 (0.0-0.8); Monocytes % (Auto) 9.8 % (0.0-7.3); Red Blood Count 2.87 M/mm3 (3.65-5.03); Red Cell Distribution Width 17.2 % (13.2-15.2)
--- NOTE | 2019-04-03 05:28 | XRay Report ---
CHEST 1 VIEW [id number] INDICATION / CLINICAL INFORMATION: follow up respiratory failure. COMPARISON: 04/02/2019 FINDINGS: SUPPORT DEVICES: Stable HEART / MEDIASTINUM: Stable LUNGS / PLEURA: Left sided infiltrate continues in appears slightly more prominent. Mild atelectasis is seen in the right base. No pneumothorax. ADDITIONAL FINDINGS: No significant additional findings. IMPRESSION: Slight worsening Signer Name: Jair Woo MD Signed: 04/03/2019 5:24 AM Workstation Name: [email or web address]
[2019-04-03 05:45] LABS: Albumin 2.1 g/dL (3.9-5); BUN/Creatinine Ratio 38; Blood Urea Nitrogen 15 mg/dL (7-17); Calcium 8.1 mg/dL (8.4-10.2); Hemolysis Index 11
[2019-04-03 05:57] LABS: ABG HCO3 19.3 mmol/L (20.0-26.0); ABG Methemoglobin 0.5 % (0.0-1.5); ABG Oxygen Saturation 97.6 % (95.0-99.0); ABG PCO2 32.2 mm Hg; ABG PH 7.396 pH Units (7.350-7.450); ABG PO2 97.7 mm Hg (80.0-90.0)
[2019-04-03 06:16] LABS: Alanine Aminotransferase 861 units/L (7-56); Platelet Count 65 K/mm3 (140-440)
--- NOTE | 2019-04-03 08:36 | Progress Note ---
Assessment and Plan Assessment and plan: 28 year old woman with a history of diabetes was brought to the emergency room following a cardiac arrest. Her last well-known time was 10:30 in the morning, she was traveling with a friend, she was unresponsive in the back seat. EMS was called, CPR was started and continued here in the emergency room. Patient was intubated in the ER, noted hypotensive started on dobutamine, epinephrine and Levophed drip, given IV fluids, found to be in DKA with BG ~2200, several metabolic derangements - placed on insulin drip and admitted to ICU. Still intubated on vent, minimal response. Acute respiratory failure - on vent, cont nebs, CC consulted Acute encephalopathy, POA - CT head negative - likely from cardiac arrest - consulted neurology Cardiac arrest s/p resuscitation - likely 2/2 severe hyperglycemia - preserved EF onb2d echo DKA, severe - BG was >2200 on admission - s/p insulin drip. cont iv fluid - monitor BG q4h, on TF and on subqu insulin - adjust dose as needed Shock hypotensive vs sepsis - cont iv fluid, s/p pressor support - follow Cx result, cont abx - weaned off pressor as tolerated Sepsis with possible aspiration PNA - evident on CXR on admission with left sided infiltrates - cont abx per ID Acute renal failure, likely vasomotor nephropathy - resolved - cont iv fluid, monitor BMP Anemia, acute on chronic - no sign of blood loss s/p 2 Units PRBC transfused Hyperkalemia, resolved with fluid and insulin Hypernatremia Repeat in am hypokalemia, replete as needed, monitor BMP Shock liver with elevated LFT and Coagulopathy - due to cardiac arrest and hypotension - cont to monitor Hypermagnesemia Hyperphosphatemia - cont to monitor, improved DVT Px, heparin Poor prognosis discussed with mother at bedside. Mother waiting The high probability of a clinically significant, sudden or life threatening deterioration of the [multiple] system(s) required my full and direct attention, intervention and personal management. The aggregate critical care time was [32] minutes. This time is in addition to time spent performing reported procedures but includes the following: [x] Data Review and interpretation [x] Patient assessment and monitoring of vital signs [x] Documentation [x] Medication orders and management History Interval history: Mother at bedside Minimal responsive still intubated Hospitalist Physical - Physical exam Narrative exam: Gen: Not in acute distress, intubated, on vent HEENT: Normocephalic, atraumatic Neck: supple, no JVD Heart: S1 and S2 reg, no murmurs, rubs or gallop Lungs: Clear to auscultation, no rhonchi, no wheeze Abd: soft, non tender, non distended, normal BS, Ext: No edema, no clubbing, no cyanosis Neuro: Minimal responsive, does not follow commands, - Constitutional Vitals: Temp Pulse Resp BP Pulse Ox 99 F 106 H 12 111/80 99 04/03/19 03:02 04/03/19 08:00 04/03/19 08:00 04/03/19 08:00 04/03/19 08:00 General appearance: Present: disheveled, other (intubated, sedated) Results - Labs CBC & Chem 7: 04/03/19 03:40 04/03/19 03:40 Labs: Laboratory Last Values WBC 6.3 K/mm3 (4.5-11.0) 04/03/19 03:40 RBC 2.87 M/mm3 (3.65-5.03) L 04/03/19 03:40 Hgb 9.3 gm/dl (10.1-14.3) L 04/03/19 03:40 Hct 27.0 % (30.3-42.9) L 04/03/19 03:40 MCV 94 fl (79-97) 04/03/19 03:40 MCH 32 pg (28-32) 04/03/19 03:40 MCHC 34 % (30-34) 04/03/19 03:40 RDW 17.2 % (13.2-15.2) H 04/03/19 03:40 Plt Count 65 K/mm3 (140-440) L 04/03/19 03:40 Lymph % (Auto) 16.9 % (13.4-35.0) 04/03/19 03:40 [place] % (Auto) 9.8 % (0.0-7.3) H 04/03/19 03:40 Eos % (Auto) 3.2 % (0.0-4.3) 04/03/19 03:40 Baso % (Auto) 0.4 % (0.0-1.8) 04/03/19 03:40 Lymph # 1.1 K/mm3 (1.2-5.4) L 04/03/19 03:40 [place] # 0.6 K/mm3 (0.0-0.8) 04/03/19 03:40 Eos # 0.2 K/mm3 (0.0-0.4) 04/03/19 03:40 Baso # 0.0 K/mm3 (0.0-0.1) 04/03/19 03:40 Add Manual Diff Complete 04/01/19 05:01 Total Counted 100 04/01/19 05:01 Seg Neutrophils % 69.7 % (40.0-70.0) 04/03/19 03:40 Seg Neuts % (Manual) 71.0 % (40.0-70.0) H 04/01/19 05:01 0 % 04/01/19 05:01 20.0 % (13.4-35.0) 04/01/19 05:01 Reactive Lymphs % (Man) 0 % 04/01/19 05:01 7.0 % (0.0-7.3) 04/01/19 05:01 2.0 % (0.0-4.3) 04/01/19 05:01 0 % (0.0-1.8) 04/01/19 05:01 0 % 04/01/19 05:01 0 % 04/01/19 05:01 0 % 04/01/19 05:01 0 % 04/01/19 05:01 Nucleated RBC % Not Reportable 04/01/19 05:01 Seg Neutrophils # 4.4 K/mm3 (1.8-7.7) 04/03/19 03:40 Seg Neutrophils # Man 4.8 K/mm3 (1.8-7.7) 04/01/19 05:01 Band Neutrophils # 0.0 K/mm3 04/01/19 05:01 1.4 K/mm3 (1.2-5.4) 04/01/19 05:01 Abs React Lymphs (Man) 0.0 K/mm3 04/01/19 05:01 0.5 K/mm3 (0.0-0.8) 04/01/19 05:01 0.1 K/mm3 (0.0-0.4) 04/01/19 05:01 0.0 K/mm3 (0.0-0.1) 04/01/19 05:01 0.0 K/mm3 04/01/19 05:01 0.0 K/mm3 04/01/19 05:01 0.0 K/mm3 04/01/19 05:01 Blast Cells # 0.0 K/mm3 04/01/19 05:01 WBC Morphology Not Reportable 04/01/19 05:01 Hypersegmented Neuts Not Reportable 04/01/19 05:01 Hyposegmented Neuts Not Reportable 04/01/19 05:01 Hypogranular Neuts Not Reportable 04/01/19 05:01 Not Reportable 04/01/19 05:01 Not Reportable 04/01/19 05:01 Not Reportable 04/01/19 05:01 Not Reportable 04/01/19 05:01 Not Reportable 04/01/19 05:01 Not Reportable 04/01/19 05:01 Not Reportable 04/01/19 05:01 Not Reportable 04/01/19 05:01 Plt Clumps, EDTA Not Reportable 04/01/19 05:01 Not Reportable 04/01/19 05:01 Not Reportable 04/01/19 05:01 Not Reportable 04/01/19 05:01 Plt Morphology Comment Not Reportable 04/01/19 05:01 RBC Morphology Normal 04/01/19 05:01 Dimorphic RBCs Not Reportable 04/01/19 05:01 Not Reportable 04/01/19 05:01 Not Reportable 04/01/19 05:01 Not Reportable 04/01/19 05:01 Not Reportable 04/01/19 05:01 Not Reportable 04/01/19 05:01 Not Reportable 04/01/19 05:01 Not Reportable 04/01/19 05:01 Not Reportable 04/01/19 05:01 Not Reportable 04/01/19 05:01 Not Reportable 04/01/19 05:01 Not Reportable 04/01/19 05:01 Not Reportable 04/01/19 05:01 Not Reportable 04/01/19 05:01 Not Reportable 04/01/19 05:01 Not Reportable 04/01/19 05:01 Not Reportable 04/01/19 05:01 Not Reportable 04/01/19 05:01 Not Reportable 04/01/19 05:01 Not Reportable 04/01/19 05:01 Acanthocytes (Spur) Not Reportable 04/01/19 05:01 Rouleaux Not Reportable 04/01/19 05:01 Not Reportable 04/01/19 05:01 Not Reportable 04/01/19 05:01 Not Reportable 04/01/19 05:01 Not Reportable 04/01/19 05:01 Hem Pathologist Commnt No 04/01/19 05:01 PT 13.9 Sec. (12.2-14.9) 04/01/19 17:14 INR 1.10 (0.87-1.13) 04/01/19 17:14 APTT 74.5 Sec. (24.2-36.6) H* 03/29/19 19:20 313 mg/dl (211-480) 04/01/19 17:14 5203.68 ng/mlDDU (0-234) H 04/01/19 17:14 POC ABG pH 7.251 (7.35-7.45) L 03/30/19 03:15 ABG pH 7.396 pH Units (7.350-7.450) 04/03/19 05:35 ABG pCO2 32.2 mm Hg 04/03/19 05:35 POC ABG pO2 156 (80-105) H 03/30/19 03:15 ABG pO2 97.7 mm Hg (80.0-90.0) H 04/03/19 05:35 POC ABG HCO3 9.4 (22-26 mml/L) 03/30/19 03:15 ABG HCO3 19.3 mmol/L (20.0-26.0) L 04/03/19 05:35 POC ABG Total CO2 10 (23-27mmol/L) 03/30/19 03:15 POC ABG O2 Sat 99 03/30/19 03:15 ABG O2 Saturation 97.6 % (95.0-99.0) 04/03/19 05:35 ABG O2 Content 10.9 (0.0-44) 04/03/19 05:35 POC ABG Base Excess -18 ((-2) - (+3)mmol/L) 03/30/19 03:15 ABG Base Excess -5.0 mmol/L (-2.0-3.0) L 04/03/19 05:35 ABG Hemoglobin 8.0 gm/dl (12.0-16.0) L 04/03/19 05:35 ABG Carboxyhemoglobin 2.1 % (0.0-5.0) 04/03/19 05:35 ABG Methemoglobin 0.5 % (0.0-1.5) 04/03/19 05:35 VBG pH 6.800 (7.320-7.420) L* 03/29/19 19:47 95.1 % (95.0-99.0) 04/03/19 05:35 25 % 04/03/19 05:35 Sodium 147 mmol/L (137-145) H 04/03/19 03:40 Potassium 3.5 mmol/L (3.6-5.0) L 04/03/19 03:40 Chloride 116.7 mmol/L (98-107) H 04/03/19 03:40 Carbon Dioxide 18 mmol/L (22-30) L 04/03/19 03:40 16 mmol/L 04/03/19 03:40 BUN 15 mg/dL (7-17) 04/03/19 03:40 0.4 mg/dL (0.7-1.2) L 04/03/19 03:40 Estimated GFR > 60 ml/min 04/03/19 03:40 38 % 04/03/19 03:40 Glucose 150 mg/dL (65-100) H 04/03/19 03:40 POC Glucose 135 (70-105) H 04/03/19 07:02 Lactic Acid 3.30 mmol/L (0.7-2.0) H* 03/31/19 07:50 Calcium 8.1 mg/dL (8.4-10.2) L 04/03/19 03:40 Phosphorus 2.20 mg/dL (2.5-4.5) L 04/03/19 03:40 Magnesium 2.60 mg/dL (1.7-2.3) H 03/30/19 05:26 Iron 26 ug/dL (37-170) L 03/31/19 08:20 TIBC 193 mcg/dL (250-450) L 03/31/19 08:20 0.60 mg/dL (0.1-1.2) 04/03/19 03:40 0.2 mg/dL (0-0.2) 04/02/19 07:48 0.5 mg/dL 04/02/19 07:48 AST 594 units/L (5-40) H 04/03/19 03:40 ALT 861 units/L (7-56) H 04/03/19 03:40 299 units/L (35-129) H 04/03/19 03:40 2465 units/L (30-135) H 03/30/19 05:26 CK-MB (CK-2) 52.7 ng/mL (0.0-4.0) H 03/30/19 05:26 CK-MB (CK-2) Rel Index 2.1 (0-4) 03/30/19 05:26 0.014 ng/mL (0.00-0.029) 03/30/19 05:26 2.40 mg/dL (0.00-1.30) H 03/30/19 12:57 4.4 g/dL (6.3-8.2) L 04/03/19 03:40 2.1 g/dL (3.9-5) L 04/03/19 03:40 0.9 % 04/03/19 03:40 Vitamin B12 > 2000 pg/mL (211-911) H 03/31/19 08:20 > 20 ng/mL (7.3-26.0) 03/31/19 08:20 HCG, Qual Negative (Negative) 03/29/19 19:20 Yellow (Yellow) 03/29/19 23:10 Slightly-cloudy (Clear) 03/29/19 23:10 6.0 (5.0-7.0) 03/29/19 23:10 Ur Specific [place] 1.021 (1.003-1.030) 03/29/19 23:10 100 mg/dl mg/dL (Negative) 03/29/19 23:10 >=500 mg/dL (Negative) 03/29/19 23:10 20 mg/dL (Negative) 03/29/19 23:10 Lg (Negative) 03/29/19 23:10 Neg (Negative) 03/29/19 23:10 Neg (Negative) 03/29/19 23:10 < 2.0 mg/dL (<2.0) 03/29/19 23:10 Ur Leukocyte Esterase Neg (Negative) 03/29/19 23:10 1.0 /HPF (0.0-6.0) 03/29/19 23:10 1.0 /HPF (0.0-6.0) 03/29/19 23:10 Few /HPF 03/29/19 23:10 Salicylates 0.8 mg/dL (2.8-20.0) L 03/30/19 Unknown Presumptive negative 03/29/19 23:10 Presumptive negative 03/29/19 23:10 Acetaminophen < 5.0 ug/mL (10.0-30.0) L 03/30/19 Unknown Ur Barbiturates Screen Presumptive negative 03/29/19 23:10 Ur Phencyclidine Scrn Presumptive negative 03/29/19 23:10 Ur Amphetamines Screen Presumptive negative 03/29/19 23:10 U Benzodiazepines Scrn Presumptive negative 03/29/19 23:10 Presumptive negative 03/29/19 23:10 U Marijuana (THC) Screen Presumptive negative 03/29/19 23:10 Disclamer 03/29/19 23:10 Hepatitis A IgM Ab Non-reactive (NonReactive) 03/30/19 Unknown Hep Bs Antigen Non-reactive (Negative) 03/30/19 Unknown Hep B Core IgM Ab Non-reactive (NonReactive) 03/30/19 Unknown Non-reactive (NonReactive) 03/30/19 Unknown Flexitest 1 H 03/30/19 14:00 Blood Type O POSITIVE 03/30/19 03:30 Antibody Screen Negative 03/30/19 03:30 Crossmatch See Detail 03/30/19 03:30 Active Medications - Current Medications Current Medications: Generic Name Dose Route Start Last Admin Trade Name Freq PRN Reason Stop Dose Admin Acetaminophen 650 mg 03/29/19 23:34 04/01/19 23:38 Tylenol PO 650 mg Q4H PRN Administration Pain MILD(1-3)/Fever >100.5/WARE Lipase/Protease/Amylase 1 each 04/02/19 11:[address] 10,500 Unit FEEDTUBE PRN PRN For Clogged Feeding Tube Dextrose 0 ml 03/29/19 20:33 03/31/19 02:15 D50w (25gm) Syringe IV 10 ml PRN PRN Administration Hypoglycemia Famotidine 20 mg 04/02/19 10:00 04/02/19 21:27 Pepcid PO 20 mg BID ZAMZAM Administration Fentanyl 50 mcg 03/30/19 11:24 Sublimaze IV Q10MIN PRN ANALGESIA Hydrophilic Ointment 1 applic 03/30/19 11:24 Vaseline Lip Therapy TP Q2HR PRN Dry Lips Norepinephrine 4 mg in 250 mls @ 7.5 mls/hr 03/29/19 21:00 04/01/19 19:00 Levophed Drip 4 Mg/Ns 250 Ml IV 0 mcg/min TITR ZAMZAM 0 mls/hr Titration Protocol 2 MCG/MIN Vasopressin 20 unit/ Sodium 101 mls @ 9.09 mls/hr 03/29/19 23:45 04/02/19 07:45 Chloride IV 0 units/min TITR ZAMZAM 0 mls/hr Titration Protocol 0.03 UNITS/MIN Phenylephrine HCl 100 mg/ 100 mls @ 3 mls/hr 03/30/19 01:15 03/30/19 15:15 Sodium Chloride IV 0 mcg/min TITR ZAMZAM 0 mls/hr Titration Protocol 50 MCG/MIN Fentanyl Citrate 2,000 mcg in 100 mls @ 2.2 mls/hr 03/30/19 12:00 04/02/19 13:25 Fentanyl Drip Premix IV 1 mcg/kg/hr TITR ZAMZAM 2.2 mls/hr Administration Protocol 1 MCG/KG/HR Metronidazole 500 mg in 100 mls @ 100 mls/hr 03/30/19 14:00 04/03/19 05:06 Flagyl 500 Mg/100 Ml IV 100 mls/hr Q8HR ZAMZAM Administration Midazolam HCl 100 mg/ Sodium 100 mls @ 2 mls/hr 03/30/19 14:00 Chloride IV TITR ZAMZAM Protocol 2 MG/HR Cefepime HCl 2 gm in 100 mls @ 200 mls/hr 03/31/19 14:00 04/03/19 05:01 Maxipime/Ns 2 Gm/100 Ml IV 200 mls/hr Q8HR ZAMZAM Administration Insulin Glargine 5 units 04/02/19 22:00 04/02/19 21:28 Lantus SUB-Q 5 units QHS ZAMZAM Administration Insulin Human Regular 0 units 04/01/19 19:00 04/03/19 06:55 Humulin R SUB-Q Not Given Q4H [facility] Protocol Levetiracetam 500 mg 04/03/19 10:00 Keppra PO BID ZAMZAM Midazolam HCl 2 mg 03/30/19 13:14 Versed IV Q10MIN PRN Sedation Multi-Ingred Cream/Lotion/Oil/Oint 1 applic 03/30/19 11:24 03/31/19 04:28 Artificial Tears Ophth Oint OU 1 applic Q4HR PRN Administration Dry Eye(s) Ondansetron HCl 4 mg 03/29/19 23:34 Zofran IV Q8H PRN Nausea And Vomiting Simple Syrup 15 ml 04/02/19 11:44 Simple Syrup FEEDTUBE PRN PRN Hypoglycemia Simple Syrup 30 ml 04/02/19 11:44 Simple Syrup FEEDTUBE PRN PRN Hypoglycemia Sodium Bicarbonate 325 mg 04/02/19 11:44 Sodium Bicarbonate FEEDTUBE PRN PRN For Clogged Feeding Tube Sodium Chloride 10 ml 03/30/19 10:00 04/02/19 21:35 Sodium Chloride Flush Syringe 10 Ml IV 10 ml BID ZAMZAM Administration Sodium Chloride 10 ml 03/29/19 23:34 Sodium Chloride Flush Syringe 10 Ml IV PRN PRN LINE FLUSH Nutrition/Malnutrition Assess - Dietary Evaluation Nutrition/Malnutrition Findings: Nutrition Notes Start: 03/30/19 13:14 Freq: Status: Active Protocol: Document 04/02/19 11:37 FERNANDA (Rec: 04/02/19 11:44 FERNANDA [email or web address]) Nutrition Notes Need for Assessment generated from: MD Order Initial or Follow up Reassessment Current Diagnosis Diabetes,Sepsis,Respiratory Failure Other Pertinent Diagnosis s/p cardiac arrest, DKA, ARF, Shock liver Current Diet NPO Labs/Tests K 3.5 BUN 29 BG 159 Elevated LFTs Pertinent Medications Reviewed Height 5 ft Weight 52.2 kg [place] Body Weight (kg) 45.45 BMI 22.4 Subjective/Other Information RD consulted for TF. Pt remains on vent support. Burn Absent Trauma Absent #1 Nutrition Diagnosis Inadequate oral intake Diagnosis Progress(for reassessment Continues documentation) Is patient on ventilator? Yes Is Patient Ambulatory and/or Out of Bed No REE-([place]-confined to bed) 1398.456 Calculation Used for Recommendations [facility] Additional Notes Pro needs 1.2-2g/k-104g/ day Fluid needs 1ml/kcal Nutrition Intervention Nutrition Support: Glucerna 1.2 at 50ml/hr with 80ml water flush q4h. Kcal 1,440 Protein (gm) 72 Fluid (mL) 966 Goal #1 TF tolerance Goal #2 TF to meet at least 75% energy and pro needs Follow-Up By: 04/04/19 Additional Comments F/U: new TF, vent status
[2019-04-03] MEDS: PEPCID PO SCH ×2 (09:38→21:24)
[2019-04-03] MEDS: KEPPRA PO SCH ×2 (09:38→21:24)
[2019-04-03] MEDS: SODIUM CHLORIDE FLUSH SYRINGE 10 ML IV SCH ×2 (09:38→21:24)
[2019-04-03] MEDS ORDERED: KPHOS 30 MMOL in NACL 0.9% 500 ML 500 ML IV ONE (13:00)
--- NOTE | 2019-04-03 14:45 | Progress Note ---
Assessment and Plan Acute toxic metabolic encephalopathy. Diabetic ketoacidosis. Severe sepsis with shock. Possible aspiration pneumonia. History of polysubstance abuse. Leukocytosis. Elevated serum transaminases, possible shock liver. Hyponatremia related to her severe hyperglycemia. Anemia that is macrocytic. History of seizure disorder. Severe metabolic acidosis. Acute kidney injury, possibly on chronic - MRI consistent with diffuse anoxic injury - AMS may end up rate limiting factor to safe extubation - neurology evaluation ongoing - follow EEG report - discontinued femoral CVL - continue set rate at 12/min while resting - transfuse PRBC's prn to keep Hb >/= 7.0 g/dl - continue contact isolation - follow HIT assay (No heparinoids) - continue to follow mental status closely - continue and de-escalate antiinfective's per ID recommendations - follow prn CRP & lactate levels to aid clinical decision making - continue daily SAT and SBT assessments as tolerated - off IV insulin - continue enteral nutrition with glucerna and adjust rate per cultural centre manager - discontinued lew catheter - continue bronchodilators with pulmonary hygiene per RT - VAP bundle addressed - continue to wean supplemental O2 to keep O2 sats > 90% - VTE prophylaxis - Stress ulcer prophylaxis - continue accuchecks with glycemic control per SSI for target blood glucose 140-180 mg/dL - continue empiric antibiotics; de-escalate per ID rec's and based on clinical and microbiologic data - sedation target of RASS 0 to -1 - continue Keppra for seizures - continue mobility protocols / off loading for pressure ulcer prevention - Critical care bundles addressed - continue Seizure precautions - fall precautions - neuro-checks per RN - continue other care per attending / other consultants CONDITION: CRITICAL PROGNOSIS: GUARDED TO GRAVE CODE STATUS: FULL CODE The high probability of a clinically significant, sudden or life threatening deterioration of the [Neurology Respiratory, Cardiovascular] system(s) required my full and direct attention, intervention and personal management. The aggregate critical care time was [35] minutes. This time is in addition to time spent performing reported procedures but includes the following: [x] Data Review and interpretation [x] Patient assessment and monitoring of vital signs [x] Documentation [x] Medication orders and management Subjective Date of service: 04/03/19 Principal diagnosis: Ac Hypoxemic Resp Failure; DKA; Severe sepsis with shock; ANGELICA Interval history: Patient is seen today for: Acute Hypoxemic Resp Failure; Ac toxic metabolic encephalopathy; DKA; Severe sepsis with shock; Possible aspiration pneumonia; History of polysubstance abuse; History of seizure disorder; Acute kidney injury, possibly on chronic Seen and examined at bedside; 24hour events reviewed; nursing and respiratory care staff consulted; no adverse overnight events reported to me; resting peacefully in bed; AMS is persistent; mother is visiting; serum phosphorus still low; tenuously tolerating PSV at Psupp of 16 cm H2O Objective Vital Signs - 12hr 04/03/19 04/03/19 04/03/19 02:45 03:00 03:02 Temperature 99 F Pulse Rate 122 H 106 H Pulse Rate [ From Monitor] Respiratory 26 H 15 Rate Blood Pressure 119/74 108/68 O2 Sat by Pulse 100 98 Oximetry 04/03/19 04/03/19 04/03/19 03:15 03:31 03:45 Temperature Pulse Rate 112 H 114 H 109 H Pulse Rate [ From Monitor] Respiratory 15 18 16 Rate Blood Pressure 108/68 108/68 108/68 O2 Sat by Pulse 98 99 98 Oximetry 04/03/19 04/03/19 04/03/19 04:00 04:15 04:31 Temperature Pulse Rate 109 H 108 H 108 H Pulse Rate [ 108 H From Monitor] Respiratory 15 14 13 Rate Blood Pressure 114/71 114/71 114/71 O2 Sat by Pulse 97 98 98 Oximetry 04/03/19 04/03/19 04/03/19 04:45 05:00 05:15 Temperature Pulse Rate 109 H 107 H 109 H Pulse Rate [ From Monitor] Respiratory 14 14 14 Rate Blood Pressure 114/71 109/70 109/70 O2 Sat by Pulse 98 97 98 Oximetry 04/03/19 04/03/19 04/03/19 05:31 05:45 06:00 Temperature Pulse Rate 109 H 110 H 107 H Pulse Rate [ From Monitor] Respiratory 13 14 13 Rate Blood Pressure 109/70 109/70 109/67 O2 Sat by Pulse 98 98 98 Oximetry 04/03/19 04/03/19 04/03/19 07:00 07:05 08:00 Temperature 98.0 F Pulse Rate 108 H 107 H Pulse Rate [ 106 H From Monitor] Respiratory 14 12 Rate Blood Pressure 113/75 111/80 O2 Sat by Pulse 99 98 Oximetry 04/03/19 04/03/19 04/03/19 09:00 10:00 11:05 Temperature 98.7 F Pulse Rate 105 H 105 H Pulse Rate [ From Monitor] Respiratory 14 13 Rate Blood Pressure 113/74 111/76 O2 Sat by Pulse 98 Oximetry 04/03/19 04/03/19 04/03/19 11:37 11:40 11:46 Temperature Pulse Rate 112 H 110 H 117 H Pulse Rate [ From Monitor] Respiratory Rate Blood Pressure 111/76 132/84 132/54 O2 Sat by Pulse 100 100 100 Oximetry 04/03/19 04/03/19 04/03/19 12:00 13:00 14:00 Temperature Pulse Rate 108 H 103 H 106 H Pulse Rate [ From Monitor] Respiratory 12 13 12 Rate Blood Pressure 115/79 115/82 119/83 O2 Sat by Pulse 98 97 Oximetry Constitutional: no acute distress, other (young CF normocephalic and atraumatic on MVS) Eyes: non-icteric ENT: oropharynx moist, other (ETT 22-23 cm Jessi) Neck: supple, no lymphadenopathy, no JVD Effort: mildly labored Ascultation: Bilateral: rhonchi Percussion: Bilateral: not dull Cardiovascular: regular rate and rhythm, other (sinus tachycardia) Gastrointestinal: normoactive bowel sounds, soft, non-tender, non-distended Integumentary: normal Extremities: no cyanosis, pink and warm, pulses normal, no ischemia or petechiae, edema (trace to 1+) Neurologic: non-focal exam (grossly), other (Sedated) Psychiatric: other (unable to assess) CBC and BMP: 04/03/19 03:40 04/03/19 03:40 ABG, PT/INR, D-dimer: ABG POC ABG pH 7.251 (7.35-7.45) L 03/30/19 03:15 ABG pH 7.396 pH Units (7.350-7.450) 04/03/19 05:35 ABG pCO2 32.2 mm Hg 04/03/19 05:35 POC ABG pO2 156 (80-105) H 03/30/19 03:15 ABG pO2 97.7 mm Hg (80.0-90.0) H 04/03/19 05:35 POC ABG HCO3 9.4 (22-26 mml/L) 03/30/19 03:15 POC ABG Total CO2 10 (23-27mmol/L) 03/30/19 03:15 POC ABG O2 Sat 99 03/30/19 03:15 ABG O2 Saturation 97.6 % (95.0-99.0) 04/03/19 05:35 PT/INR, D-dimer PT 13.9 Sec. (12.2-14.9) 04/01/19 17:14 INR 1.10 (0.87-1.13) 04/01/19 17:14 5203.68 ng/mlDDU (0-234) H 04/01/19 17:14 Abnormal lab findings: Abnormal Labs 03/29/19 03/29/19 03/29/19 19:20 19:20 19:20 WBC 26.7 H RBC 2.52 L Hgb 8.1 L Hct MCV 148 H MCH MCHC 22 L RDW 18.5 H Plt Count [place] % (Auto) Lymph # Seg Neuts % (Manual) 82.0 H Lymphocytes % (Manual) 7.0 L Nucleated RBC % Seg Neutrophils # Man 21.9 H Lymphocytes # (Manual) Monocytes # (Manual) 1.9 H PT 21.8 H INR 1.95 H APTT 74.5 H* D-Dimer POC ABG pH ABG pH POC ABG pO2 ABG pO2 ABG HCO3 ABG O2 Saturation ABG Base Excess ABG Hemoglobin VBG pH Oxyhemoglobin Sodium 118 L* Potassium 9.0 H* Chloride 64.5 L Carbon Dioxide 7 L* BUN 53 H Creatinine 2.1 H Glucose 2196 H* POC Glucose Lactic Acid Calcium 12.4 H* Phosphorus Magnesium Iron TIBC Direct Bilirubin AST 3900 H ALT 1034 H Alkaline Phosphatase 316 H Total Creatine Kinase CK-MB (CK-2) C-Reactive Protein Total Protein 5.1 L Albumin 2.8 L Vitamin B12 Salicylates Acetaminophen Miscellaneous Test Crossmatch 03/29/19 03/29/19 03/29/19 19:47 20:59 22:45 WBC RBC Hgb Hct MCV MCH MCHC RDW Plt Count [place] % (Auto) Lymph # Seg Neuts % (Manual) Lymphocytes % (Manual) Nucleated RBC % Seg Neutrophils # Man Lymphocytes # (Manual) Monocytes # (Manual) PT INR APTT D-Dimer POC ABG pH 6.892 L ABG pH POC ABG pO2 236 H ABG pO2 ABG HCO3 ABG O2 Saturation ABG Base Excess ABG Hemoglobin VBG pH 6.800 L* Oxyhemoglobin Sodium 132 L D Potassium 7.0 H* Chloride 84.3 L Carbon Dioxide 3 L* BUN 48 H Creatinine 1.8 H Glucose 1779 H* POC Glucose Lactic Acid Calcium Phosphorus Magnesium Iron TIBC Direct Bilirubin AST ALT Alkaline Phosphatase Total Creatine Kinase CK-MB (CK-2) C-Reactive Protein Total Protein Albumin Vitamin B12 Salicylates Acetaminophen Miscellaneous Test Crossmatch 03/29/19 03/29/19 03/29/19 22:45 22:45 Unknown WBC RBC Hgb Hct MCV MCH MCHC RDW Plt Count [place] % (Auto) Lymph # Seg Neuts % (Manual) Lymphocytes % (Manual) Nucleated RBC % Seg Neutrophils # Man Lymphocytes # (Manual) Monocytes # (Manual) PT INR APTT D-Dimer POC ABG pH ABG pH POC ABG pO2 ABG pO2 ABG HCO3 ABG O2 Saturation ABG Base Excess ABG Hemoglobin VBG pH Oxyhemoglobin Sodium Potassium Chloride Carbon Dioxide BUN Creatinine Glucose POC Glucose Lactic Acid Calcium Phosphorus 21.70 H 19.30 H Magnesium 4.70 H 3.90 H Iron TIBC Direct Bilirubin AST ALT Alkaline Phosphatase Total Creatine Kinase 363 H CK-MB (CK-2) C-Reactive Protein Total Protein Albumin Vitamin B12 Salicylates Acetaminophen Miscellaneous Test Crossmatch 03/29/19 03/30/19 03/30/19 Unknown 00:11 00:11 WBC RBC Hgb Hct MCV MCH MCHC RDW Plt Count [place] % (Auto) Lymph # Seg Neuts % (Manual) Lymphocytes % (Manual) Nucleated RBC % Seg Neutrophils # Man Lymphocytes # (Manual) Monocytes # (Manual) PT INR APTT D-Dimer POC ABG pH ABG pH POC ABG pO2 ABG pO2 ABG HCO3 ABG O2 Saturation ABG Base Excess ABG Hemoglobin VBG pH Oxyhemoglobin Sodium 122 L Potassium 7.9 H* 6.4 H* Chloride 75.3 L 89.7 L Carbon Dioxide 3 L* 12 L D BUN 52 H 46 H Creatinine 2.0 H 1.7 H Glucose 2043 H* 1591 H* POC Glucose Lactic Acid Calcium 7.8 L Phosphorus 10.90 H D Magnesium 3.10 H Iron TIBC Direct Bilirubin AST ALT Alkaline Phosphatase Total Creatine Kinase CK-MB (CK-2) C-Reactive Protein Total Protein Albumin Vitamin B12 Salicylates Acetaminophen Miscellaneous Test Crossmatch 03/30/19 03/30/19 03/30/19 02:14 02:14 03:15 WBC RBC Hgb Hct MCV MCH MCHC RDW Plt Count [place] % (Auto) Lymph # Seg Neuts % (Manual) Lymphocytes % (Manual) Nucleated RBC % Seg Neutrophils # Man Lymphocytes # (Manual) Monocytes # (Manual) PT INR APTT D-Dimer POC ABG pH 7.251 L ABG pH POC ABG pO2 156 H ABG pO2 ABG HCO3 ABG O2 Saturation ABG Base Excess ABG Hemoglobin VBG pH Oxyhemoglobin Sodium Potassium Chloride Carbon Dioxide 9 L* BUN 45 H Creatinine 1.7 H Glucose 1155 H* POC Glucose Lactic Acid Calcium 7.9 L Phosphorus 5.30 H D Magnesium 2.90 H Iron TIBC Direct Bilirubin AST ALT Alkaline Phosphatase Total Creatine Kinase CK-MB (CK-2) C-Reactive Protein Total Protein Albumin Vitamin B12 Salicylates Acetaminophen Miscellaneous Test Crossmatch 03/30/19 03/30/19 03/30/19 03:30 04:23 05:26 WBC 18.0 H RBC 2.31 L Hgb 7.3 L Hct 23.8 L D MCV 103 H MCH MCHC RDW 17.1 H Plt Count [place] % (Auto) Lymph # Seg Neuts % (Manual) 79.0 H Lymphocytes % (Manual) Nucleated RBC % Seg Neutrophils # Man 14.2 H Lymphocytes # (Manual) Monocytes # (Manual) PT INR APTT D-Dimer POC ABG pH ABG pH POC ABG pO2 ABG pO2 ABG HCO3 ABG O2 Saturation ABG Base Excess ABG Hemoglobin VBG pH Oxyhemoglobin Sodium Potassium Chloride Carbon Dioxide BUN Creatinine Glucose POC Glucose Lactic Acid Calcium Phosphorus Magnesium 2.60 H Iron TIBC Direct Bilirubin AST ALT Alkaline Phosphatase Total Creatine Kinase 2465 H CK-MB (CK-2) 52.7 H C-Reactive Protein Total Protein Albumin Vitamin B12 Salicylates Acetaminophen Miscellaneous Test Crossmatch See Detail 03/30/19 03/30/19 03/30/19 05:26 10:38 11:08 WBC RBC Hgb Hct MCV MCH MCHC RDW Plt Count [place] % (Auto) Lymph # Seg Neuts % (Manual) Lymphocytes % (Manual) Nucleated RBC % Seg Neutrophils # Man Lymphocytes # (Manual) Monocytes # (Manual) PT INR APTT D-Dimer POC ABG pH ABG pH POC ABG pO2 ABG pO2 ABG HCO3 ABG O2 Saturation ABG Base Excess ABG Hemoglobin VBG pH Oxyhemoglobin Sodium 158 H D Potassium 3.5 L Chloride 109.3 H Carbon Dioxide 19 L D BUN 40 H Creatinine 1.5 H Glucose 760 H* POC Glucose 380 H 263 H Lactic Acid Calcium 7.3 L Phosphorus Magnesium Iron TIBC Direct Bilirubin AST 32208 H ALT 2156 H Alkaline Phosphatase 271 H Total Creatine Kinase CK-MB (CK-2) C-Reactive Protein Total Protein 4.5 L Albumin 2.4 L Vitamin B12 Salicylates Acetaminophen Miscellaneous Test Crossmatch 03/30/19 03/30/19 03/30/19 12:25 12:57 12:57 WBC RBC Hgb Hct MCV MCH MCHC RDW Plt Count [place] % (Auto) Lymph # Seg Neuts % (Manual) Lymphocytes % (Manual) Nucleated RBC % Seg Neutrophils # Man Lymphocytes # (Manual) Monocytes # (Manual) PT 21.0 H INR 1.86 H APTT D-Dimer POC ABG pH ABG pH POC ABG pO2 ABG pO2 ABG HCO3 ABG O2 Saturation ABG Base Excess ABG Hemoglobin VBG pH Oxyhemoglobin Sodium 156 H Potassium 3.2 L Chloride 116.4 H Carbon Dioxide 21 L BUN 37 H Creatinine Glucose 162 H POC Glucose 196 H Lactic Acid Calcium 7.2 L Phosphorus Magnesium Iron TIBC Direct Bilirubin AST ALT Alkaline Phosphatase Total Creatine Kinase CK-MB (CK-2) C-Reactive Protein Total Protein Albumin Vitamin B12 Salicylates Acetaminophen Miscellaneous Test Crossmatch 03/30/19 03/30/19 03/30/19 12:57 12:57 13:23 WBC RBC Hgb Hct MCV MCH MCHC RDW Plt Count [place] % (Auto) Lymph # Seg Neuts % (Manual) Lymphocytes % (Manual) Nucleated RBC % Seg Neutrophils # Man Lymphocytes # (Manual) Monocytes # (Manual) PT INR APTT D-Dimer POC ABG pH ABG pH POC ABG pO2 ABG pO2 ABG HCO3 ABG O2 Saturation ABG Base Excess ABG Hemoglobin VBG pH Oxyhemoglobin Sodium Potassium Chloride Carbon Dioxide BUN Creatinine Glucose POC Glucose 176 H Lactic Acid 9.00 H* Calcium Phosphorus Magnesium Iron TIBC Direct Bilirubin AST ALT Alkaline Phosphatase Total Creatine Kinase CK-MB (CK-2) C-Reactive Protein 2.40 H Total Protein Albumin Vitamin B12 Salicylates Acetaminophen Miscellaneous Test Crossmatch 03/30/19 03/30/19 03/30/19 14:00 14:47 16:11 WBC RBC Hgb Hct MCV MCH MCHC RDW Plt Count [place] % (Auto) Lymph # Seg Neuts % (Manual) Lymphocytes % (Manual) Nucleated RBC % Seg Neutrophils # Man Lymphocytes # (Manual) Monocytes # (Manual) PT INR APTT D-Dimer POC ABG pH ABG pH POC ABG pO2 ABG pO2 ABG HCO3 ABG O2 Saturation ABG Base Excess ABG Hemoglobin VBG pH Oxyhemoglobin Sodium Potassium Chloride Carbon Dioxide BUN Creatinine Glucose POC Glucose 245 H 181 H Lactic Acid Calcium Phosphorus Magnesium Iron TIBC Direct Bilirubin AST ALT Alkaline Phosphatase Total Creatine Kinase CK-MB (CK-2) C-Reactive Protein Total Protein Albumin Vitamin B12 Salicylates Acetaminophen Miscellaneous Test Flexitest 1 H Crossmatch 03/30/19 03/30/19 03/30/19 17:11 17:46 18:59 WBC RBC Hgb Hct MCV MCH MCHC RDW Plt Count [place] % (Auto) Lymph # Seg Neuts % (Manual) Lymphocytes % (Manual) Nucleated RBC % Seg Neutrophils # Man Lymphocytes # (Manual) Monocytes # (Manual) PT INR APTT D-Dimer POC ABG pH ABG pH POC ABG pO2 ABG pO2 ABG HCO3 ABG O2 Saturation ABG Base Excess ABG Hemoglobin VBG pH Oxyhemoglobin Sodium Potassium Chloride Carbon Dioxide BUN Creatinine Glucose POC Glucose 167 H 125 H 140 H Lactic Acid Calcium Phosphorus Magnesium Iron TIBC Direct Bilirubin AST ALT Alkaline Phosphatase Total Creatine Kinase CK-MB (CK-2) C-Reactive Protein Total Protein Albumin Vitamin B12 Salicylates Acetaminophen Miscellaneous Test Crossmatch 03/30/19 03/30/19 03/30/19 21:31 22:19 23:13 WBC RBC Hgb Hct MCV MCH MCHC RDW Plt Count [place] % (Auto) Lymph # Seg Neuts % (Manual) Lymphocytes % (Manual) Nucleated RBC % Seg Neutrophils # Man Lymphocytes # (Manual) Monocytes # (Manual) PT INR APTT D-Dimer POC ABG pH ABG pH POC ABG pO2 ABG pO2 ABG HCO3 ABG O2 Saturation ABG Base Excess ABG Hemoglobin VBG pH Oxyhemoglobin Sodium Potassium Chloride Carbon Dioxide BUN Creatinine Glucose POC Glucose 166 H 115 H 112 H Lactic Acid Calcium Phosphorus Magnesium Iron TIBC Direct Bilirubin AST ALT Alkaline Phosphatase Total Creatine Kinase CK-MB (CK-2) C-Reactive Protein Total Protein Albumin Vitamin B12 Salicylates Acetaminophen Miscellaneous Test Crossmatch 03/30/19 03/30/19 03/30/19 Unknown Unknown Unknown WBC RBC Hgb Hct MCV MCH MCHC RDW Plt Count [place] % (Auto) Lymph # Seg Neuts % (Manual) Lymphocytes % (Manual) Nucleated RBC % Seg Neutrophils # Man Lymphocytes # (Manual) Monocytes # (Manual) PT INR APTT D-Dimer POC ABG pH ABG pH POC ABG pO2 ABG pO2 47.8 L ABG HCO3 18.8 L ABG O2 Saturation 83.8 L ABG Base Excess -5.4 L ABG Hemoglobin 6.8 L VBG pH Oxyhemoglobin 81.8 L Sodium 157 H Potassium 3.3 L Chloride 117.9 H Carbon Dioxide 20 L BUN 36 H Creatinine Glucose 150 H POC Glucose Lactic Acid Calcium 7.2 L Phosphorus Magnesium Iron TIBC Direct Bilirubin AST ALT Alkaline Phosphatase Total Creatine Kinase CK-MB (CK-2) C-Reactive Protein Total Protein Albumin Vitamin B12 Salicylates 0.8 L Acetaminophen Miscellaneous Test Crossmatch 03/30/19 03/31/19 03/31/19 Unknown 00:03 01:18 WBC RBC Hgb Hct MCV MCH MCHC RDW Plt Count [place] % (Auto) Lymph # Seg Neuts % (Manual) Lymphocytes % (Manual) Nucleated RBC % Seg Neutrophils # Man Lymphocytes # (Manual) Monocytes # (Manual) PT INR APTT D-Dimer POC ABG pH ABG pH POC ABG pO2 ABG pO2 ABG HCO3 ABG O2 Saturation ABG Base Excess ABG Hemoglobin VBG pH Oxyhemoglobin Sodium Potassium Chloride Carbon Dioxide BUN Creatinine Glucose POC Glucose 188 H 114 H Lactic Acid Calcium Phosphorus Magnesium Iron TIBC Direct Bilirubin AST ALT Alkaline Phosphatase Total Creatine Kinase CK-MB (CK-2) C-Reactive Protein Total Protein Albumin Vitamin B12 Salicylates Acetaminophen < 5.0 L Miscellaneous Test Crossmatch 03/31/19 03/31/19 03/31/19 03:07 03:50 03:51 WBC RBC 1.89 L Hgb 6.1 L Hct 18.2 L* MCV MCH MCHC RDW 17.7 H Plt Count 89 L [place] % (Auto) Lymph # Seg Neuts % (Manual) 86.0 H Lymphocytes % (Manual) 10.0 L Nucleated RBC % 1.0 H Seg Neutrophils # Man Lymphocytes # (Manual) 0.7 L Monocytes # (Manual) PT INR APTT D-Dimer POC ABG pH ABG pH 7.525 H POC ABG pO2 ABG pO2 178.0 H ABG HCO3 19.5 L ABG O2 Saturation 99.2 H ABG Base Excess -3.1 L ABG Hemoglobin 5.8 L VBG pH Oxyhemoglobin Sodium Potassium Chloride Carbon Dioxide BUN Creatinine Glucose POC Glucose 107 H Lactic Acid Calcium Phosphorus Magnesium Iron TIBC Direct Bilirubin AST ALT Alkaline Phosphatase Total Creatine Kinase CK-MB (CK-2) C-Reactive Protein Total Protein Albumin Vitamin B12 Salicylates Acetaminophen Miscellaneous Test Crossmatch 03/31/19 03/31/19 03/31/19 03:51 04:05 05:05 WBC RBC Hgb Hct MCV MCH MCHC RDW Plt Count [place] % (Auto) Lymph # Seg Neuts % (Manual) Lymphocytes % (Manual) Nucleated RBC % Seg Neutrophils # Man Lymphocytes # (Manual) Monocytes # (Manual) PT INR APTT D-Dimer POC ABG pH ABG pH POC ABG pO2 ABG pO2 ABG HCO3 ABG O2 Saturation ABG Base Excess ABG Hemoglobin VBG pH Oxyhemoglobin Sodium 151 H Potassium 3.2 L Chloride 119.4 H Carbon Dioxide 17 L BUN 35 H Creatinine Glucose 139 H POC Glucose 153 H 176 H Lactic Acid Calcium 7.1 L Phosphorus Magnesium Iron TIBC Direct Bilirubin AST ALT Alkaline Phosphatase Total Creatine Kinase CK-MB (CK-2) C-Reactive Protein Total Protein Albumin Vitamin B12 Salicylates Acetaminophen Miscellaneous Test Crossmatch 03/31/19 03/31/19 03/31/19 05:35 06:23 07:50 WBC RBC Hgb Hct MCV MCH MCHC RDW Plt Count [place] % (Auto) Lymph # Seg Neuts % (Manual) Lymphocytes % (Manual) Nucleated RBC % Seg Neutrophils # Man Lymphocytes # (Manual) Monocytes # (Manual) PT INR APTT D-Dimer POC ABG pH ABG pH POC ABG pO2 ABG pO2 ABG HCO3 ABG O2 Saturation ABG Base Excess ABG Hemoglobin VBG pH Oxyhemoglobin Sodium Potassium Chloride Carbon Dioxide BUN Creatinine Glucose POC Glucose 133 H Lactic Acid 3.20 H* 3.30 H* Calcium Phosphorus Magnesium Iron TIBC Direct Bilirubin AST ALT Alkaline Phosphatase Total Creatine Kinase CK-MB (CK-2) C-Reactive Protein Total Protein Albumin Vitamin B12 Salicylates Acetaminophen Miscellaneous Test Crossmatch 03/31/19 03/31/19 03/31/19 07:51 08:20 08:20 WBC RBC Hgb Hct MCV MCH MCHC RDW Plt Count [place] % (Auto) Lymph # Seg Neuts % (Manual) Lymphocytes % (Manual) Nucleated RBC % Seg Neutrophils # Man Lymphocytes # (Manual) Monocytes # (Manual) PT INR APTT D-Dimer POC ABG pH ABG pH POC ABG pO2 ABG pO2 ABG HCO3 ABG O2 Saturation ABG Base Excess ABG Hemoglobin VBG pH Oxyhemoglobin Sodium Potassium Chloride Carbon Dioxide BUN Creatinine Glucose POC Glucose 135 H Lactic Acid Calcium Phosphorus Magnesium Iron 26 L TIBC 193 L Direct Bilirubin AST ALT Alkaline Phosphatase Total Creatine Kinase CK-MB (CK-2) C-Reactive Protein Total Protein Albumin Vitamin B12 > 2000 H Salicylates Acetaminophen Miscellaneous Test Crossmatch 03/31/19 03/31/19 03/31/19 08:20 09:06 10:47 WBC RBC Hgb Hct MCV MCH MCHC RDW Plt Count [place] % (Auto) Lymph # Seg Neuts % (Manual) Lymphocytes % (Manual) Nucleated RBC % Seg Neutrophils # Man Lymphocytes # (Manual) Monocytes # (Manual) PT INR APTT D-Dimer POC ABG pH ABG pH POC ABG pO2 ABG pO2 ABG HCO3 ABG O2 Saturation ABG Base Excess ABG Hemoglobin VBG pH Oxyhemoglobin Sodium 153 H Potassium 3.0 L Chloride 118.9 H Carbon Dioxide 18 L BUN 37 H Creatinine Glucose 132 H POC Glucose 145 H 153 H Lactic Acid Calcium 7.1 L Phosphorus Magnesium Iron TIBC Direct Bilirubin AST ALT Alkaline Phosphatase Total Creatine Kinase CK-MB (CK-2) C-Reactive Protein Total Protein Albumin Vitamin B12 Salicylates Acetaminophen Miscellaneous Test Crossmatch 03/31/19 03/31/19 03/31/19 11:49 13:04 13:42 WBC RBC Hgb Hct MCV MCH MCHC RDW Plt Count [place] % (Auto) Lymph # Seg Neuts % (Manual) Lymphocytes % (Manual) Nucleated RBC % Seg Neutrophils # Man Lymphocytes # (Manual) Monocytes # (Manual) PT INR APTT D-Dimer POC ABG pH ABG pH POC ABG pO2 ABG pO2 ABG HCO3 ABG O2 Saturation ABG Base Excess ABG Hemoglobin VBG pH Oxyhemoglobin Sodium Potassium Chloride Carbon Dioxide BUN Creatinine Glucose POC Glucose 174 H 214 H 186 H Lactic Acid Calcium Phosphorus Magnesium Iron TIBC Direct Bilirubin AST ALT Alkaline Phosphatase Total Creatine Kinase CK-MB (CK-2) C-Reactive Protein Total Protein Albumin Vitamin B12 Salicylates Acetaminophen Miscellaneous Test Crossmatch 03/31/19 03/31/19 03/31/19 15:08 16:08 17:11 WBC RBC Hgb Hct MCV MCH MCHC RDW Plt Count [place] % (Auto) Lymph # Seg Neuts % (Manual) Lymphocytes % (Manual) Nucleated RBC % Seg Neutrophils # Man Lymphocytes # (Manual) Monocytes # (Manual) PT INR APTT D-Dimer POC ABG pH ABG pH POC ABG pO2 ABG pO2 ABG HCO3 ABG O2 Saturation ABG Base Excess ABG Hemoglobin VBG pH Oxyhemoglobin Sodium Potassium Chloride Carbon Dioxide BUN Creatinine Glucose POC Glucose 136 H 150 H 140 H Lactic Acid Calcium Phosphorus Magnesium Iron TIBC Direct Bilirubin AST ALT Alkaline Phosphatase Total Creatine Kinase CK-MB (CK-2) C-Reactive Protein Total Protein Albumin Vitamin B12 Salicylates Acetaminophen Miscellaneous Test Crossmatch 03/31/19 03/31/19 03/31/19 17:30 17:30 17:59 WBC RBC Hgb 7.7 L Hct 23.0 L MCV MCH MCHC RDW Plt Count [place] % (Auto) Lymph # Seg Neuts % (Manual) Lymphocytes % (Manual) Nucleated RBC % Seg Neutrophils # Man Lymphocytes # (Manual) Monocytes # (Manual) PT INR APTT D-Dimer POC ABG pH ABG pH POC ABG pO2 ABG pO2 ABG HCO3 ABG O2 Saturation ABG Base Excess ABG Hemoglobin VBG pH Oxyhemoglobin Sodium 153 H Potassium 3.5 L Chloride 119.3 H Carbon Dioxide 20 L BUN 34 H Creatinine Glucose 162 H POC Glucose 156 H Lactic Acid Calcium 7.6 L Phosphorus Magnesium Iron TIBC Direct Bilirubin AST ALT Alkaline Phosphatase Total Creatine Kinase CK-MB (CK-2) C-Reactive Protein Total Protein Albumin Vitamin B12 Salicylates Acetaminophen Miscellaneous Test Crossmatch 03/31/19 03/31/19 03/31/19 18:58 20:28 21:09 WBC RBC Hgb Hct MCV MCH MCHC RDW Plt Count [place] % (Auto) Lymph # Seg Neuts % (Manual) Lymphocytes % (Manual) Nucleated RBC % Seg Neutrophils # Man Lymphocytes # (Manual) Monocytes # (Manual) PT INR APTT D-Dimer POC ABG pH ABG pH POC ABG pO2 ABG pO2 ABG HCO3 ABG O2 Saturation ABG Base Excess ABG Hemoglobin VBG pH Oxyhemoglobin Sodium Potassium Chloride Carbon Dioxide BUN Creatinine Glucose POC Glucose 152 H 138 H 136 H Lactic Acid Calcium Phosphorus Magnesium Iron TIBC Direct Bilirubin AST ALT Alkaline Phosphatase Total Creatine Kinase CK-MB (CK-2) C-Reactive Protein Total Protein Albumin Vitamin B12 Salicylates Acetaminophen Miscellaneous Test Crossmatch 03/31/19 03/31/19 04/01/19 22:15 23:10 00:05 WBC RBC Hgb Hct MCV MCH MCHC RDW Plt Count [place] % (Auto) Lymph # Seg Neuts % (Manual) Lymphocytes % (Manual) Nucleated RBC % Seg Neutrophils # Man Lymphocytes # (Manual) Monocytes # (Manual) PT INR APTT D-Dimer POC ABG pH ABG pH POC ABG pO2 ABG pO2 ABG HCO3 ABG O2 Saturation ABG Base Excess ABG Hemoglobin VBG pH Oxyhemoglobin Sodium Potassium Chloride Carbon Dioxide BUN Creatinine Glucose POC Glucose 137 H 148 H 143 H Lactic Acid Calcium Phosphorus Magnesium Iron TIBC Direct Bilirubin AST ALT Alkaline Phosphatase Total Creatine Kinase CK-MB (CK-2) C-Reactive Protein Total Protein Albumin Vitamin B12 Salicylates Acetaminophen Miscellaneous Test Crossmatch 04/01/19 04/01/19 04/01/19 01:17 02:11 03:12 WBC RBC Hgb Hct MCV MCH MCHC RDW Plt Count [place] % (Auto) Lymph # Seg Neuts % (Manual) Lymphocytes % (Manual) Nucleated RBC % Seg Neutrophils # Man Lymphocytes # (Manual) Monocytes # (Manual) PT INR APTT D-Dimer POC ABG pH ABG pH POC ABG pO2 ABG pO2 ABG HCO3 ABG O2 Saturation ABG Base Excess ABG Hemoglobin VBG pH Oxyhemoglobin Sodium Potassium Chloride Carbon Dioxide BUN Creatinine Glucose POC Glucose 151 H 155 H 140 H Lactic Acid Calcium Phosphorus Magnesium Iron TIBC Direct Bilirubin AST ALT Alkaline Phosphatase Total Creatine Kinase CK-MB (CK-2) C-Reactive Protein Total Protein Albumin Vitamin B12 Salicylates Acetaminophen Miscellaneous Test Crossmatch 09/03/1204/01/19 04/01/19 04:03 04:16 05:01 WBC RBC 2.05 L Hgb 6.8 L Hct 20.5 L MCV 100 H MCH 33 H MCHC RDW 17.7 H Plt Count 53 L [place] % (Auto) Lymph # Seg Neuts % (Manual) 71.0 H Lymphocytes % (Manual) Nucleated RBC % Seg Neutrophils # Man Lymphocytes # (Manual) Monocytes # (Manual) PT INR APTT D-Dimer POC ABG pH ABG pH POC ABG pO2 ABG pO2 ABG HCO3 ABG O2 Saturation ABG Base Excess ABG Hemoglobin VBG pH Oxyhemoglobin Sodium Potassium Chloride Carbon Dioxide BUN Creatinine Glucose POC Glucose 143 H 142 H Lactic Acid Calcium Phosphorus Magnesium Iron TIBC Direct Bilirubin AST ALT Alkaline Phosphatase Total Creatine Kinase CK-MB (CK-2) C-Reactive Protein Total Protein Albumin Vitamin B12 Salicylates Acetaminophen Miscellaneous Test Crossmatch 04/01/19 04/01/19 04/01/19 05:01 05:08 05:23 WBC RBC Hgb Hct MCV MCH MCHC RDW Plt Count [place] % (Auto) Lymph # Seg Neuts % (Manual) Lymphocytes % (Manual) Nucleated RBC % Seg Neutrophils # Man Lymphocytes # (Manual) Monocytes # (Manual) PT INR APTT D-Dimer POC ABG pH ABG pH POC ABG pO2 ABG pO2 ABG HCO3 ABG O2 Saturation ABG Base Excess ABG Hemoglobin VBG pH Oxyhemoglobin Sodium Potassium Chloride Carbon Dioxide BUN Creatinine Glucose POC Glucose 119 H 115 H Lactic Acid Calcium Phosphorus Magnesium Iron TIBC Direct Bilirubin 0.3 H AST 4601 H ALT 1542 H Alkaline Phosphatase 185 H Total Creatine Kinase CK-MB (CK-2) C-Reactive Protein Total Protein 3.8 L Albumin 1.6 L Vitamin B12 Salicylates Acetaminophen Miscellaneous Test Crossmatch 04/01/19 04/01/19 04/01/19 06:37 08:15 09:50 WBC RBC Hgb 6.5 L Hct 19.2 L* MCV MCH MCHC RDW Plt Count [place] % (Auto) Lymph # Seg Neuts % (Manual) Lymphocytes % (Manual) Nucleated RBC % Seg Neutrophils # Man Lymphocytes # (Manual) Monocytes # (Manual) PT INR APTT D-Dimer POC ABG pH ABG pH POC ABG pO2 ABG pO2 ABG HCO3 ABG O2 Saturation ABG Base Excess ABG Hemoglobin VBG pH Oxyhemoglobin Sodium Potassium Chloride Carbon Dioxide BUN Creatinine Glucose POC Glucose 124 H 138 H Lactic Acid Calcium Phosphorus Magnesium Iron TIBC Direct Bilirubin AST ALT Alkaline Phosphatase Total Creatine Kinase CK-MB (CK-2) C-Reactive Protein Total Protein Albumin Vitamin B12 Salicylates Acetaminophen Miscellaneous Test Crossmatch 04/01/19 04/01/19 04/01/19 10:10 10:31 11:35 WBC RBC Hgb Hct MCV MCH MCHC RDW Plt Count [place] % (Auto) Lymph # Seg Neuts % (Manual) Lymphocytes % (Manual) Nucleated RBC % Seg Neutrophils # Man Lymphocytes # (Manual) Monocytes # (Manual) PT INR APTT D-Dimer POC ABG pH ABG pH POC ABG pO2 ABG pO2 ABG HCO3 ABG O2 Saturation ABG Base Excess ABG Hemoglobin VBG pH Oxyhemoglobin Sodium 149 H Potassium 3.5 L Chloride 119.9 H Carbon Dioxide 21 L BUN 33 H Creatinine 0.5 L Glucose 142 H POC Glucose 185 H 201 H Lactic Acid Calcium 7.3 L Phosphorus Magnesium Iron TIBC Direct Bilirubin AST 3686 H ALT 1440 H Alkaline Phosphatase 185 H Total Creatine Kinase CK-MB (CK-2) C-Reactive Protein Total Protein 3.7 L Albumin 1.8 L Vitamin B12 Salicylates Acetaminophen Miscellaneous Test Crossmatch 04/01/19 04/01/19 04/01/19 13:05 14:35 17:13 WBC RBC Hgb Hct MCV MCH MCHC RDW Plt Count [place] % (Auto) Lymph # Seg Neuts % (Manual) Lymphocytes % (Manual) Nucleated RBC % Seg Neutrophils # Man Lymphocytes # (Manual) Monocytes # (Manual) PT INR APTT D-Dimer POC ABG pH ABG pH POC ABG pO2 ABG pO2 ABG HCO3 ABG O2 Saturation ABG Base Excess ABG Hemoglobin VBG pH Oxyhemoglobin Sodium Potassium Chloride Carbon Dioxide BUN Creatinine Glucose POC Glucose 169 H 134 H 69 L Lactic Acid Calcium Phosphorus Magnesium Iron TIBC Direct Bilirubin AST ALT Alkaline Phosphatase Total Creatine Kinase CK-MB (CK-2) C-Reactive Protein Total Protein Albumin Vitamin B12 Salicylates Acetaminophen Miscellaneous Test Crossmatch 04/01/19 04/01/19 04/01/19 17:14 18:30 22:50 WBC RBC Hgb Hct MCV MCH MCHC RDW Plt Count [place] % (Auto) Lymph # Seg Neuts % (Manual) Lymphocytes % (Manual) Nucleated RBC % Seg Neutrophils # Man Lymphocytes # (Manual) Monocytes # (Manual) PT INR APTT D-Dimer 5203.68 H POC ABG pH ABG pH POC ABG pO2 ABG pO2 ABG HCO3 ABG O2 Saturation ABG Base Excess ABG Hemoglobin VBG pH Oxyhemoglobin Sodium Potassium Chloride Carbon Dioxide BUN Creatinine Glucose POC Glucose 128 H 342 H Lactic Acid Calcium Phosphorus Magnesium Iron TIBC Direct Bilirubin AST ALT Alkaline Phosphatase Total Creatine Kinase CK-MB (CK-2) C-Reactive Protein Total Protein Albumin Vitamin B12 Salicylates Acetaminophen Miscellaneous Test Crossmatch 04/01/19 04/02/19 04/02/19 Unknown 03:40 03:49 WBC RBC Hgb Hct MCV MCH MCHC RDW Plt Count [place] % (Auto) Lymph # Seg Neuts % (Manual) Lymphocytes % (Manual) Nucleated RBC % Seg Neutrophils # Man Lymphocytes # (Manual) Monocytes # (Manual) PT INR APTT D-Dimer POC ABG pH ABG pH POC ABG pO2 ABG pO2 78.3 L 142.8 H ABG HCO3 15.5 L ABG O2 Saturation ABG Base Excess -3.5 L -8.2 L ABG Hemoglobin 6.8 L 8.2 L VBG pH Oxyhemoglobin 94.3 L Sodium Potassium Chloride Carbon Dioxide BUN Creatinine Glucose POC Glucose 247 H Lactic Acid Calcium Phosphorus Magnesium Iron TIBC Direct Bilirubin AST ALT Alkaline Phosphatase Total Creatine Kinase CK-MB (CK-2) C-Reactive Protein Total Protein Albumin Vitamin B12 Salicylates Acetaminophen Miscellaneous Test Crossmatch 04/02/19 04/02/19 04/02/19 06:50 07:48 07:48 WBC RBC 2.65 L Hgb 8.6 L Hct 25.1 L MCV MCH MCHC RDW 17.6 H Plt Count 48 L [place] % (Auto) Lymph # Seg Neuts % (Manual) Lymphocytes % (Manual) Nucleated RBC % Seg Neutrophils # Man Lymphocytes # (Manual) Monocytes # (Manual) PT INR APTT D-Dimer POC ABG pH ABG pH POC ABG pO2 ABG pO2 ABG HCO3 ABG O2 Saturation ABG Base Excess ABG Hemoglobin VBG pH Oxyhemoglobin Sodium Potassium 3.5 L Chloride 115.7 H Carbon Dioxide 19 L BUN 29 H Creatinine 0.5 L Glucose 159 H POC Glucose 200 H Lactic Acid Calcium 7.5 L Phosphorus Magnesium Iron TIBC Direct Bilirubin AST 1418 H ALT 1134 H Alkaline Phosphatase 242 H Total Creatine Kinase CK-MB (CK-2) C-Reactive Protein Total Protein 4.2 L Albumin 2.1 L Vitamin B12 Salicylates Acetaminophen Miscellaneous Test Crossmatch 04/02/19 04/02/19 04/02/19 11:18 14:07 18:09 WBC RBC Hgb Hct MCV MCH MCHC RDW Plt Count [place] % (Auto) Lymph # Seg Neuts % (Manual) Lymphocytes % (Manual) Nucleated RBC % Seg Neutrophils # Man Lymphocytes # (Manual) Monocytes # (Manual) PT INR APTT D-Dimer POC ABG pH ABG pH POC ABG pO2 ABG pO2 ABG HCO3 ABG O2 Saturation ABG Base Excess ABG Hemoglobin VBG pH Oxyhemoglobin Sodium Potassium Chloride Carbon Dioxide BUN Creatinine Glucose POC Glucose 154 H 149 H 188 H Lactic Acid Calcium Phosphorus Magnesium Iron TIBC Direct Bilirubin AST ALT Alkaline Phosphatase Total Creatine Kinase CK-MB (CK-2) C-Reactive Protein Total Protein Albumin Vitamin B12 Salicylates Acetaminophen Miscellaneous Test Crossmatch 04/02/19 04/02/19 04/03/19 19:46 23:05 02:58 WBC RBC Hgb Hct MCV MCH MCHC RDW Plt Count [place] % (Auto) Lymph # Seg Neuts % (Manual) Lymphocytes % (Manual) Nucleated RBC % Seg Neutrophils # Man Lymphocytes # (Manual) Monocytes # (Manual) PT INR APTT D-Dimer POC ABG pH ABG pH POC ABG pO2 ABG pO2 ABG HCO3 ABG O2 Saturation ABG Base Excess ABG Hemoglobin VBG pH Oxyhemoglobin Sodium Potassium Chloride Carbon Dioxide BUN Creatinine Glucose POC Glucose 209 H 247 H 166 H Lactic Acid Calcium Phosphorus Magnesium Iron TIBC Direct Bilirubin AST ALT Alkaline Phosphatase Total Creatine Kinase CK-MB (CK-2) C-Reactive Protein Total Protein Albumin Vitamin B12 Salicylates Acetaminophen Miscellaneous Test Crossmatch 04/03/19 04/03/19 04/03/19 03:40 03:40 05:35 WBC RBC 2.87 L Hgb 9.3 L Hct 27.0 L MCV MCH MCHC RDW 17.2 H Plt Count 65 L [place] % (Auto) 9.8 H Lymph # 1.1 L Seg Neuts % (Manual) Lymphocytes % (Manual) Nucleated RBC % Seg Neutrophils # Man Lymphocytes # (Manual) Monocytes # (Manual) PT INR APTT D-Dimer POC ABG pH ABG pH POC ABG pO2 ABG pO2 97.7 H ABG HCO3 19.3 L ABG O2 Saturation ABG Base Excess -5.0 L ABG Hemoglobin 8.0 L VBG pH Oxyhemoglobin Sodium 147 H Potassium 3.5 L Chloride 116.7 H Carbon Dioxide 18 L BUN Creatinine 0.4 L Glucose 150 H POC Glucose Lactic Acid Calcium 8.1 L Phosphorus 2.20 L Magnesium Iron TIBC Direct Bilirubin AST 594 H ALT 861 H Alkaline Phosphatase 299 H Total Creatine Kinase CK-MB (CK-2) C-Reactive Protein Total Protein 4.4 L Albumin 2.1 L Vitamin B12 Salicylates Acetaminophen Miscellaneous Test Crossmatch 04/03/19 04/03/19 04/03/19 07:02 08:23 11:58 WBC RBC Hgb Hct MCV MCH MCHC RDW Plt Count [place] % (Auto) Lymph # Seg Neuts % (Manual) Lymphocytes % (Manual) Nucleated RBC % Seg Neutrophils # Man Lymphocytes # (Manual) Monocytes # (Manual) PT INR APTT D-Dimer POC ABG pH ABG pH POC ABG pO2 ABG pO2 ABG HCO3 ABG O2 Saturation ABG Base Excess ABG Hemoglobin VBG pH Oxyhemoglobin Sodium Potassium Chloride Carbon Dioxide BUN Creatinine Glucose POC Glucose 135 H 132 H 179 H Lactic Acid Calcium Phosphorus Magnesium Iron TIBC Direct Bilirubin AST ALT Alkaline Phosphatase Total Creatine Kinase CK-MB (CK-2) C-Reactive Protein Total Protein Albumin Vitamin B12 Salicylates Acetaminophen Miscellaneous Test Crossmatch Chest x-ray: image reviewed (left perihilar / midzone infiltrates) Allied health notes reviewed: nursing
--- NOTE | 2019-04-03 14:47 | Progress Note ---
Assessment and Plan Cultures: 03/29 BCx: pend 03/29 sputum Cx: C albicans A/P: 28 yo F PMHx T1DM admitted after receiving intubation and compressions due to non-responsiveness likely secondary to DKA 1. SIRS - likely secondary to DKA/resuscitation, possible infective component of aspiration PNA vs penumonitis. Leukocytosis improving. Pressor requirements impr oving. CXR improving. 2. Aspiration pneumonia vs pneumonitis - Procal greatly elevated. Continue antibiotics. Can treat for 7 days. Jenn in sputum culture not a pathogen of the respiratory tract. 3. Acute liver failure - Possibly secondary to DKA, but liver enzymes vastly and quickly increased. Viral etiologies negative 4. DKA - numerous metabolic derangements, per primary/ICU team 5. T1DM Recs: - continue cefepime renally dosed at 2g q8h - continue metronidazole 500mg q8h - follow liver function - stop date: 04/06 Thank you for the consult, we will continue to follow. Vlad Carson MD [facility] ([facility]) M: [phone] O: [phone] F: [phone] Subjective Date of service: 04/03/19 Principal diagnosis: Ac Hypoxemic Resp Failure; DKA; Severe sepsis with shock; ANGELICA Interval history: No change today. CXR with slight worsening. Objective - Exam Narrative Exam: Physical Exam: Constitutional: Intubated, sedated Head, Ears, Nose: Normocephalic, atraumatic. External ears, nose normal Eyes: Conjunctivae/corneas clear. No icterus. No ptosis. Neck: Supple, no meningeal signs. Intubated Oral: dentition fair, no thrush Cardiovascular: S1, S2 normal. Respiratory: Good air entry, clear to auscultation bilaterally GI: Soft, non-tender; bowel sounds normal. No peritoneal signs. Musculoskeletal: No pedal edema, no cyanosis. Skin: No rash or abscess Hem/Lymphatic: No palpable cervical or supraclavicular nodes. No lymphangitis Neurological: Intubated, sedated - Constitutional Vitals: Vital Signs Temp Pulse Resp BP Pulse Ox 98.7 F 106 H 12 119/83 97 04/03/19 11:05 04/03/19 14:00 04/03/19 14:00 04/03/19 14:00 04/03/19 13:00 Temperature -Last 24 Hours Temperature 98.7 F Temperature 98.0 F Temperature 99 F Temperature 99.7 F Temperature 98.5 F Temperature 99.1 F - Labs CBC & Chem 7: 04/03/19 03:40 04/03/19 03:40 Labs: Abnormal lab results 04/02/19 04/02/19 04/02/19 Range/Units 18:09 19:46 23:05 RBC (3.65-5.03) M/mm3 Hgb (10.1-14.3) gm/dl Hct (30.3-42.9) % RDW (13.2-15.2) % Plt Count (140-440) K/mm3 [place] % (Auto) (0.0-7.3) % Lymph # (1.2-5.4) K/mm3 ABG pO2 (80.0-90.0) mm Hg ABG HCO3 (20.0-26.0) mmol/L ABG Base Excess (-2.0-3.0) mmol/L ABG Hemoglobin (12.0-16.0) gm/dl Sodium (137-145) mmol/L Potassium (3.6-5.0) mmol/L Chloride (98-107) mmol/L Carbon Dioxide (22-30) mmol/L Creatinine (0.7-1.2) mg/dL Glucose (65-100) mg/dL POC Glucose 188 H 209 H 247 H (70-105) Calcium (8.4-10.2) mg/dL Phosphorus (2.5-4.5) mg/dL AST (5-40) units/L ALT (7-56) units/L Alkaline Phosphatase (35-129) units/L Total Protein (6.3-8.2) g/dL Albumin (3.9-5) g/dL 04/03/19 04/03/19 04/03/19 Range/Units 02:58 03:40 03:40 RBC 2.87 L (3.65-5.03) M/mm3 Hgb 9.3 L (10.1-14.3) gm/dl Hct 27.0 L (30.3-42.9) % RDW 17.2 H (13.2-15.2) % Plt Count 65 L (140-440) K/mm3 [place] % (Auto) 9.8 H (0.0-7.3) % Lymph # 1.1 L (1.2-5.4) K/mm3 ABG pO2 (80.0-90.0) mm Hg ABG HCO3 (20.0-26.0) mmol/L ABG Base Excess (-2.0-3.0) mmol/L ABG Hemoglobin (12.0-16.0) gm/dl Sodium 147 H (137-145) mmol/L Potassium 3.5 L (3.6-5.0) mmol/L Chloride 116.7 H (98-107) mmol/L Carbon Dioxide 18 L (22-30) mmol/L Creatinine 0.4 L (0.7-1.2) mg/dL Glucose 150 H (65-100) mg/dL POC Glucose 166 H (70-105) Calcium 8.1 L (8.4-10.2) mg/dL Phosphorus 2.20 L (2.5-4.5) mg/dL AST 594 H (5-40) units/L ALT 861 H (7-56) units/L Alkaline Phosphatase 299 H (35-129) units/L Total Protein 4.4 L (6.3-8.2) g/dL Albumin 2.1 L (3.9-5) g/dL 04/03/19 04/03/19 04/03/19 Range/Units 05:35 07:02 08:23 RBC (3.65-5.03) M/mm3 Hgb (10.1-14.3) gm/dl Hct (30.3-42.9) % RDW (13.2-15.2) % Plt Count (140-440) K/mm3 [place] % (Auto) (0.0-7.3) % Lymph # (1.2-5.4) K/mm3 ABG pO2 97.7 H (80.0-90.0) mm Hg ABG HCO3 19.3 L (20.0-26.0) mmol/L ABG Base Excess -5.0 L (-2.0-3.0) mmol/L ABG Hemoglobin 8.0 L (12.0-16.0) gm/dl Sodium (137-145) mmol/L Potassium (3.6-5.0) mmol/L Chloride (98-107) mmol/L Carbon Dioxide (22-30) mmol/L Creatinine (0.7-1.2) mg/dL Glucose (65-100) mg/dL POC Glucose 135 H 132 H (70-105) Calcium (8.4-10.2) mg/dL Phosphorus (2.5-4.5) mg/dL AST (5-40) units/L ALT (7-56) units/L Alkaline Phosphatase (35-129) units/L Total Protein (6.3-8.2) g/dL Albumin (3.9-5) g/dL 04/03/19 Range/Units 11:58 RBC (3.65-5.03) M/mm3 Hgb (10.1-14.3) gm/dl Hct (30.3-42.9) % RDW (13.2-15.2) % Plt Count (140-440) K/mm3 [place] % (Auto) (0.0-7.3) % Lymph # (1.2-5.4) K/mm3 ABG pO2 (80.0-90.0) mm Hg ABG HCO3 (20.0-26.0) mmol/L ABG Base Excess (-2.0-3.0) mmol/L ABG Hemoglobin (12.0-16.0) gm/dl Sodium (137-145) mmol/L Potassium (3.6-5.0) mmol/L Chloride (98-107) mmol/L Carbon Dioxide (22-30) mmol/L Creatinine (0.7-1.2) mg/dL Glucose (65-100) mg/dL POC Glucose 179 H (70-105) Calcium (8.4-10.2) mg/dL Phosphorus (2.5-4.5) mg/dL AST (5-40) units/L ALT (7-56) units/L Alkaline Phosphatase (35-129) units/L Total Protein (6.3-8.2) g/dL Albumin (3.9-5) g/dL
--- NOTE | 2019-04-03 16:14 | Progress Note ---
Assessment and Plan Patient is a 28-year-old woman with history of diabetes, polysubstance abuse, history of seizures. She presented on 03/29/2019 after having a cardiac arrest. The patient was given CPR and return to spontaneous circulation. According the patient's clinical findings, it is likely that she's had anoxic brain injury. Additionally, the patient has a history of seizures, and was noted to have a seizure-like event during this admission. Plan: 1. Anoxic brain injury: - CT head unremarkable - Check MRI brain for evidence of anoxic injury- pending - Continue supportive care per ICU and primary teams - I discussed at length the patient's mother regarding her prognosis and plan of care. The patient's mother stated that the patient had made clear in the past that she did not want to have a tracheostomy or a PEG tube placed in the future if her chance of recovery was minimal, she has had this in the past with previous illnesses. I discussed with the mother regarding prognosis, and that at this time it is uncertain as to the extent of neurologic recovery she will have, and the timeline that that recovery will occur within. I further discussed that the patient currently displays evidence of brainstem reflexes which are intact, and that the patient is therefore not brain . - Recommend risk management/ethics team consult for review of plans of care with family, given patient's previous stated directives. 2. History of seizures: - Check EEG- final report pending, however initial review did not reveal any seizures. - Continue keppra 3. Aspiration PNA/Acute liver failure/Sepsis/Shock: - Continue supportive care per ICU/ID/primary teams - Will continue to follow patient. - Thank you for allowing me to take part in the care of this patient. Lorenzo Farley MD Neurology Subjective Date of service: 04/03/19 Principal diagnosis: Ac Hypoxemic Resp Failure; DKA; Severe sepsis with shock; ANGELICA Interval history: No acute events overnight. Objective - Exam Narrative Exam: Patient is intubated, comatose. Pupils are equal, round, sluggishly reactive to light. Corneal reflexes are intact. Cough reflex is intact. Patient withdraws to pain in all extremities. Reflexes 3+ throughout. - Vital Sign Vital Signs - 12hr 04/03/19 04/03/19 04/03/19 04:15 04:31 04:45 Temperature Pulse Rate 108 H 108 H 109 H Pulse Rate [ From Monitor] Respiratory 14 13 14 Rate Blood Pressure 114/71 114/71 114/71 O2 Sat by Pulse 98 98 98 Oximetry 04/03/19 04/03/19 04/03/19 05:00 05:15 05:31 Temperature Pulse Rate 107 H 109 H 109 H Pulse Rate [ From Monitor] Respiratory 14 14 13 Rate Blood Pressure 109/70 109/70 109/70 O2 Sat by Pulse 97 98 98 Oximetry 04/03/19 04/03/19 04/03/19 05:45 06:00 07:00 Temperature Pulse Rate 110 H 107 H 108 H Pulse Rate [ From Monitor] Respiratory 14 13 14 Rate Blood Pressure 109/70 109/67 113/75 O2 Sat by Pulse 98 98 99 Oximetry 04/03/19 04/03/19 04/03/19 07:05 08:00 09:00 Temperature 98.0 F Pulse Rate 107 H 105 H Pulse Rate [ 106 H From Monitor] Respiratory 12 14 Rate Blood Pressure 111/80 113/74 O2 Sat by Pulse 98 98 Oximetry 04/03/19 04/03/19 04/03/19 10:00 11:05 11:37 Temperature 98.7 F Pulse Rate 105 H 112 H Pulse Rate [ From Monitor] Respiratory 13 Rate Blood Pressure 111/76 111/76 O2 Sat by Pulse 100 Oximetry 04/03/19 04/03/19 04/03/19 11:40 11:46 12:00 Temperature Pulse Rate 110 H 117 H 108 H Pulse Rate [ From Monitor] Respiratory 12 Rate Blood Pressure 132/84 132/54 115/79 O2 Sat by Pulse 100 100 98 Oximetry 04/03/19 04/03/19 13:00 14:00 Temperature Pulse Rate 103 H 106 H Pulse Rate [ From Monitor] Respiratory 13 12 Rate Blood Pressure 115/82 119/83 O2 Sat by Pulse 97 Oximetry - General Apperance Constitutional: acutely ill - EENT EENT: ATNC, PERRL, mucous membranes moist - Respiratory Respiratory: decreased breath sounds - Cardiovascular Cardiovascular: regular rate, normal S1, normal S2 Extremities: no peripheral edema bilat, no clubbing, cyanosis - Gastrointestinal Gastrointestinal: normoactive bowel sounds, soft, non-tender - Integumentary Integumentary: normal - Laboratory Findings CBC and BMP: 04/03/19 03:40 04/03/19 03:40 Abnormal Lab Findings: Abnormal Labs 03/29/19 03/29/19 03/29/19 19:20 19:20 19:20 WBC 26.7 H RBC 2.52 L Hgb 8.1 L Hct MCV 148 H MCH MCHC 22 L RDW 18.5 H Plt Count [place] % (Auto) Lymph # Seg Neuts % (Manual) 82.0 H Lymphocytes % (Manual) 7.0 L Nucleated RBC % Seg Neutrophils # Man 21.9 H Lymphocytes # (Manual) Monocytes # (Manual) 1.9 H PT 21.8 H INR 1.95 H APTT 74.5 H* D-Dimer POC ABG pH ABG pH POC ABG pO2 ABG pO2 ABG HCO3 ABG O2 Saturation ABG Base Excess ABG Hemoglobin VBG pH Oxyhemoglobin Sodium 118 L* Potassium 9.0 H* Chloride 64.5 L Carbon Dioxide 7 L* BUN 53 H Creatinine 2.1 H Glucose 2196 H* POC Glucose Lactic Acid Calcium 12.4 H* Phosphorus Magnesium Iron TIBC Direct Bilirubin AST 3900 H ALT 1034 H Alkaline Phosphatase 316 H Total Creatine Kinase CK-MB (CK-2) C-Reactive Protein Total Protein 5.1 L Albumin 2.8 L Vitamin B12 Salicylates Acetaminophen Miscellaneous Test Crossmatch 03/29/19 03/29/19 03/29/19 19:47 20:59 22:45 WBC RBC Hgb Hct MCV MCH MCHC RDW Plt Count [place] % (Auto) Lymph # Seg Neuts % (Manual) Lymphocytes % (Manual) Nucleated RBC % Seg Neutrophils # Man Lymphocytes # (Manual) Monocytes # (Manual) PT INR APTT D-Dimer POC ABG pH 6.892 L ABG pH POC ABG pO2 236 H ABG pO2 ABG HCO3 ABG O2 Saturation ABG Base Excess ABG Hemoglobin VBG pH 6.800 L* Oxyhemoglobin Sodium 132 L D Potassium 7.0 H* Chloride 84.3 L Carbon Dioxide 3 L* BUN 48 H Creatinine 1.8 H Glucose 1779 H* POC Glucose Lactic Acid Calcium Phosphorus Magnesium Iron TIBC Direct Bilirubin AST ALT Alkaline Phosphatase Total Creatine Kinase CK-MB (CK-2) C-Reactive Protein Total Protein Albumin Vitamin B12 Salicylates Acetaminophen Miscellaneous Test Crossmatch 03/29/19 03/29/19 03/29/19 22:45 22:45 Unknown WBC RBC Hgb Hct MCV MCH MCHC RDW Plt Count [place] % (Auto) Lymph # Seg Neuts % (Manual) Lymphocytes % (Manual) Nucleated RBC % Seg Neutrophils # Man Lymphocytes # (Manual) Monocytes # (Manual) PT INR APTT D-Dimer POC ABG pH ABG pH POC ABG pO2 ABG pO2 ABG HCO3 ABG O2 Saturation ABG Base Excess ABG Hemoglobin VBG pH Oxyhemoglobin Sodium Potassium Chloride Carbon Dioxide BUN Creatinine Glucose POC Glucose Lactic Acid Calcium Phosphorus 21.70 H 19.30 H Magnesium 4.70 H 3.90 H Iron TIBC Direct Bilirubin AST ALT Alkaline Phosphatase Total Creatine Kinase 363 H CK-MB (CK-2) C-Reactive Protein Total Protein Albumin Vitamin B12 Salicylates Acetaminophen Miscellaneous Test Crossmatch 03/29/19 03/30/19 03/30/19 Unknown 00:11 00:11 WBC RBC Hgb Hct MCV MCH MCHC RDW Plt Count [place] % (Auto) Lymph # Seg Neuts % (Manual) Lymphocytes % (Manual) Nucleated RBC % Seg Neutrophils # Man Lymphocytes # (Manual) Monocytes # (Manual) PT INR APTT D-Dimer POC ABG pH ABG pH POC ABG pO2 ABG pO2 ABG HCO3 ABG O2 Saturation ABG Base Excess ABG Hemoglobin VBG pH Oxyhemoglobin Sodium 122 L Potassium 7.9 H* 6.4 H* Chloride 75.3 L 89.7 L Carbon Dioxide 3 L* 12 L D BUN 52 H 46 H Creatinine 2.0 H 1.7 H Glucose 2043 H* 1591 H* POC Glucose Lactic Acid Calcium 7.8 L Phosphorus 10.90 H D Magnesium 3.10 H Iron TIBC Direct Bilirubin AST ALT Alkaline Phosphatase Total Creatine Kinase CK-MB (CK-2) C-Reactive Protein Total Protein Albumin Vitamin B12 Salicylates Acetaminophen Miscellaneous Test Crossmatch 03/30/19 03/30/19 03/30/19 02:14 02:14 03:15 WBC RBC Hgb Hct MCV MCH MCHC RDW Plt Count [place] % (Auto) Lymph # Seg Neuts % (Manual) Lymphocytes % (Manual) Nucleated RBC % Seg Neutrophils # Man Lymphocytes # (Manual) Monocytes # (Manual) PT INR APTT D-Dimer POC ABG pH 7.251 L ABG pH POC ABG pO2 156 H ABG pO2 ABG HCO3 ABG O2 Saturation ABG Base Excess ABG Hemoglobin VBG pH Oxyhemoglobin Sodium Potassium Chloride Carbon Dioxide 9 L* BUN 45 H Creatinine 1.7 H Glucose 1155 H* POC Glucose Lactic Acid Calcium 7.9 L Phosphorus 5.30 H D Magnesium 2.90 H Iron TIBC Direct Bilirubin AST ALT Alkaline Phosphatase Total Creatine Kinase CK-MB (CK-2) C-Reactive Protein Total Protein Albumin Vitamin B12 Salicylates Acetaminophen Miscellaneous Test Crossmatch 03/30/19 03/30/19 03/30/19 03:30 04:23 05:26 WBC 18.0 H RBC 2.31 L Hgb 7.3 L Hct 23.8 L D MCV 103 H MCH MCHC RDW 17.1 H Plt Count [place] % (Auto) Lymph # Seg Neuts % (Manual) 79.0 H Lymphocytes % (Manual) Nucleated RBC % Seg Neutrophils # Man 14.2 H Lymphocytes # (Manual) Monocytes # (Manual) PT INR APTT D-Dimer POC ABG pH ABG pH POC ABG pO2 ABG pO2 ABG HCO3 ABG O2 Saturation ABG Base Excess ABG Hemoglobin VBG pH Oxyhemoglobin Sodium Potassium Chloride Carbon Dioxide BUN Creatinine Glucose POC Glucose Lactic Acid Calcium Phosphorus Magnesium 2.60 H Iron TIBC Direct Bilirubin AST ALT Alkaline Phosphatase Total Creatine Kinase 2465 H CK-MB (CK-2) 52.7 H C-Reactive Protein Total Protein Albumin Vitamin B12 Salicylates Acetaminophen Miscellaneous Test Crossmatch See Detail 03/30/19 03/30/19 03/30/19 05:26 10:38 11:08 WBC RBC Hgb Hct MCV MCH MCHC RDW Plt Count [place] % (Auto) Lymph # Seg Neuts % (Manual) Lymphocytes % (Manual) Nucleated RBC % Seg Neutrophils # Man Lymphocytes # (Manual) Monocytes # (Manual) PT INR APTT D-Dimer POC ABG pH ABG pH POC ABG pO2 ABG pO2 ABG HCO3 ABG O2 Saturation ABG Base Excess ABG Hemoglobin VBG pH Oxyhemoglobin Sodium 158 H D Potassium 3.5 L Chloride 109.3 H Carbon Dioxide 19 L D BUN 40 H Creatinine 1.5 H Glucose 760 H* POC Glucose 380 H 263 H Lactic Acid Calcium 7.3 L Phosphorus Magnesium Iron TIBC Direct Bilirubin AST 14731 H ALT 2156 H Alkaline Phosphatase 271 H Total Creatine Kinase CK-MB (CK-2) C-Reactive Protein Total Protein 4.5 L Albumin 2.4 L Vitamin B12 Salicylates Acetaminophen Miscellaneous Test Crossmatch 03/30/19 03/30/19 03/30/19 12:25 12:57 12:57 WBC RBC Hgb Hct MCV MCH MCHC RDW Plt Count [place] % (Auto) Lymph # Seg Neuts % (Manual) Lymphocytes % (Manual) Nucleated RBC % Seg Neutrophils # Man Lymphocytes # (Manual) Monocytes # (Manual) PT 21.0 H INR 1.86 H APTT D-Dimer POC ABG pH ABG pH POC ABG pO2 ABG pO2 ABG HCO3 ABG O2 Saturation ABG Base Excess ABG Hemoglobin VBG pH Oxyhemoglobin Sodium 156 H Potassium 3.2 L Chloride 116.4 H Carbon Dioxide 21 L BUN 37 H Creatinine Glucose 162 H POC Glucose 196 H Lactic Acid Calcium 7.2 L Phosphorus Magnesium Iron TIBC Direct Bilirubin AST ALT Alkaline Phosphatase Total Creatine Kinase CK-MB (CK-2) C-Reactive Protein Total Protein Albumin Vitamin B12 Salicylates Acetaminophen Miscellaneous Test Crossmatch 03/30/19 03/30/19 03/30/19 12:57 12:57 13:23 WBC RBC Hgb Hct MCV MCH MCHC RDW Plt Count [place] % (Auto) Lymph # Seg Neuts % (Manual) Lymphocytes % (Manual) Nucleated RBC % Seg Neutrophils # Man Lymphocytes # (Manual) Monocytes # (Manual) PT INR APTT D-Dimer POC ABG pH ABG pH POC ABG pO2 ABG pO2 ABG HCO3 ABG O2 Saturation ABG Base Excess ABG Hemoglobin VBG pH Oxyhemoglobin Sodium Potassium Chloride Carbon Dioxide BUN Creatinine Glucose POC Glucose 176 H Lactic Acid 9.00 H* Calcium Phosphorus Magnesium Iron TIBC Direct Bilirubin AST ALT Alkaline Phosphatase Total Creatine Kinase CK-MB (CK-2) C-Reactive Protein 2.40 H Total Protein Albumin Vitamin B12 Salicylates Acetaminophen Miscellaneous Test Crossmatch 03/30/19 03/30/19 03/30/19 14:00 14:47 16:11 WBC RBC Hgb Hct MCV MCH MCHC RDW Plt Count [place] % (Auto) Lymph # Seg Neuts % (Manual) Lymphocytes % (Manual) Nucleated RBC % Seg Neutrophils # Man Lymphocytes # (Manual) Monocytes # (Manual) PT INR APTT D-Dimer POC ABG pH ABG pH POC ABG pO2 ABG pO2 ABG HCO3 ABG O2 Saturation ABG Base Excess ABG Hemoglobin VBG pH Oxyhemoglobin Sodium Potassium Chloride Carbon Dioxide BUN Creatinine Glucose POC Glucose 245 H 181 H Lactic Acid Calcium Phosphorus Magnesium Iron TIBC Direct Bilirubin AST ALT Alkaline Phosphatase Total Creatine Kinase CK-MB (CK-2) C-Reactive Protein Total Protein Albumin Vitamin B12 Salicylates Acetaminophen Miscellaneous Test Flexitest 1 H Crossmatch 03/30/19 03/30/19 03/30/19 17:11 17:46 18:59 WBC RBC Hgb Hct MCV MCH MCHC RDW Plt Count [place] % (Auto) Lymph # Seg Neuts % (Manual) Lymphocytes % (Manual) Nucleated RBC % Seg Neutrophils # Man Lymphocytes # (Manual) Monocytes # (Manual) PT INR APTT D-Dimer POC ABG pH ABG pH POC ABG pO2 ABG pO2 ABG HCO3 ABG O2 Saturation ABG Base Excess ABG Hemoglobin VBG pH Oxyhemoglobin Sodium Potassium Chloride Carbon Dioxide BUN Creatinine Glucose POC Glucose 167 H 125 H 140 H Lactic Acid Calcium Phosphorus Magnesium Iron TIBC Direct Bilirubin AST ALT Alkaline Phosphatase Total Creatine Kinase CK-MB (CK-2) C-Reactive Protein Total Protein Albumin Vitamin B12 Salicylates Acetaminophen Miscellaneous Test Crossmatch 03/30/19 03/30/19 03/30/19 21:31 22:19 23:13 WBC RBC Hgb Hct MCV MCH MCHC RDW Plt Count [place] % (Auto) Lymph # Seg Neuts % (Manual) Lymphocytes % (Manual) Nucleated RBC % Seg Neutrophils # Man Lymphocytes # (Manual) Monocytes # (Manual) PT INR APTT D-Dimer POC ABG pH ABG pH POC ABG pO2 ABG pO2 ABG HCO3 ABG O2 Saturation ABG Base Excess ABG Hemoglobin VBG pH Oxyhemoglobin Sodium Potassium Chloride Carbon Dioxide BUN Creatinine Glucose POC Glucose 166 H 115 H 112 H Lactic Acid Calcium Phosphorus Magnesium Iron TIBC Direct Bilirubin AST ALT Alkaline Phosphatase Total Creatine Kinase CK-MB (CK-2) C-Reactive Protein Total Protein Albumin Vitamin B12 Salicylates Acetaminophen Miscellaneous Test Crossmatch 03/30/19 03/30/19 03/30/19 Unknown Unknown Unknown WBC RBC Hgb Hct MCV MCH MCHC RDW Plt Count [place] % (Auto) Lymph # Seg Neuts % (Manual) Lymphocytes % (Manual) Nucleated RBC % Seg Neutrophils # Man Lymphocytes # (Manual) Monocytes # (Manual) PT INR APTT D-Dimer POC ABG pH ABG pH POC ABG pO2 ABG pO2 47.8 L ABG HCO3 18.8 L ABG O2 Saturation 83.8 L ABG Base Excess -5.4 L ABG Hemoglobin 6.8 L VBG pH Oxyhemoglobin 81.8 L Sodium 157 H Potassium 3.3 L Chloride 117.9 H Carbon Dioxide 20 L BUN 36 H Creatinine Glucose 150 H POC Glucose Lactic Acid Calcium 7.2 L Phosphorus Magnesium Iron TIBC Direct Bilirubin AST ALT Alkaline Phosphatase Total Creatine Kinase CK-MB (CK-2) C-Reactive Protein Total Protein Albumin Vitamin B12 Salicylates 0.8 L Acetaminophen Miscellaneous Test Crossmatch 03/30/19 03/31/19 03/31/19 Unknown 00:03 01:18 WBC RBC Hgb Hct MCV MCH MCHC RDW Plt Count [place] % (Auto) Lymph # Seg Neuts % (Manual) Lymphocytes % (Manual) Nucleated RBC % Seg Neutrophils # Man Lymphocytes # (Manual) Monocytes # (Manual) PT INR APTT D-Dimer POC ABG pH ABG pH POC ABG pO2 ABG pO2 ABG HCO3 ABG O2 Saturation ABG Base Excess ABG Hemoglobin VBG pH Oxyhemoglobin Sodium Potassium Chloride Carbon Dioxide BUN Creatinine Glucose POC Glucose 188 H 114 H Lactic Acid Calcium Phosphorus Magnesium Iron TIBC Direct Bilirubin AST ALT Alkaline Phosphatase Total Creatine Kinase CK-MB (CK-2) C-Reactive Protein Total Protein Albumin Vitamin B12 Salicylates Acetaminophen < 5.0 L Miscellaneous Test Crossmatch 03/31/19 03/31/19 03/31/19 03:07 03:50 03:51 WBC RBC 1.89 L Hgb 6.1 L Hct 18.2 L* MCV MCH MCHC RDW 17.7 H Plt Count 89 L [place] % (Auto) Lymph # Seg Neuts % (Manual) 86.0 H Lymphocytes % (Manual) 10.0 L Nucleated RBC % 1.0 H Seg Neutrophils # Man Lymphocytes # (Manual) 0.7 L Monocytes # (Manual) PT INR APTT D-Dimer POC ABG pH ABG pH 7.525 H POC ABG pO2 ABG pO2 178.0 H ABG HCO3 19.5 L ABG O2 Saturation 99.2 H ABG Base Excess -3.1 L ABG Hemoglobin 5.8 L VBG pH Oxyhemoglobin Sodium Potassium Chloride Carbon Dioxide BUN Creatinine Glucose POC Glucose 107 H Lactic Acid Calcium Phosphorus Magnesium Iron TIBC Direct Bilirubin AST ALT Alkaline Phosphatase Total Creatine Kinase CK-MB (CK-2) C-Reactive Protein Total Protein Albumin Vitamin B12 Salicylates Acetaminophen Miscellaneous Test Crossmatch 03/31/19 03/31/19 03/31/19 03:51 04:05 05:05 WBC RBC Hgb Hct MCV MCH MCHC RDW Plt Count [place] % (Auto) Lymph # Seg Neuts % (Manual) Lymphocytes % (Manual) Nucleated RBC % Seg Neutrophils # Man Lymphocytes # (Manual) Monocytes # (Manual) PT INR APTT D-Dimer POC ABG pH ABG pH POC ABG pO2 ABG pO2 ABG HCO3 ABG O2 Saturation ABG Base Excess ABG Hemoglobin VBG pH Oxyhemoglobin Sodium 151 H Potassium 3.2 L Chloride 119.4 H Carbon Dioxide 17 L BUN 35 H Creatinine Glucose 139 H POC Glucose 153 H 176 H Lactic Acid Calcium 7.1 L Phosphorus Magnesium Iron TIBC Direct Bilirubin AST ALT Alkaline Phosphatase Total Creatine Kinase CK-MB (CK-2) C-Reactive Protein Total Protein Albumin Vitamin B12 Salicylates Acetaminophen Miscellaneous Test Crossmatch 03/31/19 03/31/19 03/31/19 05:35 06:23 07:50 WBC RBC Hgb Hct MCV MCH MCHC RDW Plt Count [place] % (Auto) Lymph # Seg Neuts % (Manual) Lymphocytes % (Manual) Nucleated RBC % Seg Neutrophils # Man Lymphocytes # (Manual) Monocytes # (Manual) PT INR APTT D-Dimer POC ABG pH ABG pH POC ABG pO2 ABG pO2 ABG HCO3 ABG O2 Saturation ABG Base Excess ABG Hemoglobin VBG pH Oxyhemoglobin Sodium Potassium Chloride Carbon Dioxide BUN Creatinine Glucose POC Glucose 133 H Lactic Acid 3.20 H* 3.30 H* Calcium Phosphorus Magnesium Iron TIBC Direct Bilirubin AST ALT Alkaline Phosphatase Total Creatine Kinase CK-MB (CK-2) C-Reactive Protein Total Protein Albumin Vitamin B12 Salicylates Acetaminophen Miscellaneous Test Crossmatch 03/31/19 03/31/19 03/31/19 07:51 08:20 08:20 WBC RBC Hgb Hct MCV MCH MCHC RDW Plt Count [place] % (Auto) Lymph # Seg Neuts % (Manual) Lymphocytes % (Manual) Nucleated RBC % Seg Neutrophils # Man Lymphocytes # (Manual) Monocytes # (Manual) PT INR APTT D-Dimer POC ABG pH ABG pH POC ABG pO2 ABG pO2 ABG HCO3 ABG O2 Saturation ABG Base Excess ABG Hemoglobin VBG pH Oxyhemoglobin Sodium Potassium Chloride Carbon Dioxide BUN Creatinine Glucose POC Glucose 135 H Lactic Acid Calcium Phosphorus Magnesium Iron 26 L TIBC 193 L Direct Bilirubin AST ALT Alkaline Phosphatase Total Creatine Kinase CK-MB (CK-2) C-Reactive Protein Total Protein Albumin Vitamin B12 > 2000 H Salicylates Acetaminophen Miscellaneous Test Crossmatch 03/31/19 03/31/19 03/31/19 08:20 09:06 10:47 WBC RBC Hgb Hct MCV MCH MCHC RDW Plt Count [place] % (Auto) Lymph # Seg Neuts % (Manual) Lymphocytes % (Manual) Nucleated RBC % Seg Neutrophils # Man Lymphocytes # (Manual) Monocytes # (Manual) PT INR APTT D-Dimer POC ABG pH ABG pH POC ABG pO2 ABG pO2 ABG HCO3 ABG O2 Saturation ABG Base Excess ABG Hemoglobin VBG pH Oxyhemoglobin Sodium 153 H Potassium 3.0 L Chloride 118.9 H Carbon Dioxide 18 L BUN 37 H Creatinine Glucose 132 H POC Glucose 145 H 153 H Lactic Acid Calcium 7.1 L Phosphorus Magnesium Iron TIBC Direct Bilirubin AST ALT Alkaline Phosphatase Total Creatine Kinase CK-MB (CK-2) C-Reactive Protein Total Protein Albumin Vitamin B12 Salicylates Acetaminophen Miscellaneous Test Crossmatch 03/31/19 03/31/19 03/31/19 11:49 13:04 13:42 WBC RBC Hgb Hct MCV MCH MCHC RDW Plt Count [place] % (Auto) Lymph # Seg Neuts % (Manual) Lymphocytes % (Manual) Nucleated RBC % Seg Neutrophils # Man Lymphocytes # (Manual) Monocytes # (Manual) PT INR APTT D-Dimer POC ABG pH ABG pH POC ABG pO2 ABG pO2 ABG HCO3 ABG O2 Saturation ABG Base Excess ABG Hemoglobin VBG pH Oxyhemoglobin Sodium Potassium Chloride Carbon Dioxide BUN Creatinine Glucose POC Glucose 174 H 214 H 186 H Lactic Acid Calcium Phosphorus Magnesium Iron TIBC Direct Bilirubin AST ALT Alkaline Phosphatase Total Creatine Kinase CK-MB (CK-2) C-Reactive Protein Total Protein Albumin Vitamin B12 Salicylates Acetaminophen Miscellaneous Test Crossmatch 03/31/19 03/31/19 03/31/19 15:08 16:08 17:11 WBC RBC Hgb Hct MCV MCH MCHC RDW Plt Count [place] % (Auto) Lymph # Seg Neuts % (Manual) Lymphocytes % (Manual) Nucleated RBC % Seg Neutrophils # Man Lymphocytes # (Manual) Monocytes # (Manual) PT INR APTT D-Dimer POC ABG pH ABG pH POC ABG pO2 ABG pO2 ABG HCO3 ABG O2 Saturation ABG Base Excess ABG Hemoglobin VBG pH Oxyhemoglobin Sodium Potassium Chloride Carbon Dioxide BUN Creatinine Glucose POC Glucose 136 H 150 H 140 H Lactic Acid Calcium Phosphorus Magnesium Iron TIBC Direct Bilirubin AST ALT Alkaline Phosphatase Total Creatine Kinase CK-MB (CK-2) C-Reactive Protein Total Protein Albumin Vitamin B12 Salicylates Acetaminophen Miscellaneous Test Crossmatch 03/31/19 03/31/19 03/31/19 17:30 17:30 17:59 WBC RBC Hgb 7.7 L Hct 23.0 L MCV MCH MCHC RDW Plt Count [place] % (Auto) Lymph # Seg Neuts % (Manual) Lymphocytes % (Manual) Nucleated RBC % Seg Neutrophils # Man Lymphocytes # (Manual) Monocytes # (Manual) PT INR APTT D-Dimer POC ABG pH ABG pH POC ABG pO2 ABG pO2 ABG HCO3 ABG O2 Saturation ABG Base Excess ABG Hemoglobin VBG pH Oxyhemoglobin Sodium 153 H Potassium 3.5 L Chloride 119.3 H Carbon Dioxide 20 L BUN 34 H Creatinine Glucose 162 H POC Glucose 156 H Lactic Acid Calcium 7.6 L Phosphorus Magnesium Iron TIBC Direct Bilirubin AST ALT Alkaline Phosphatase Total Creatine Kinase CK-MB (CK-2) C-Reactive Protein Total Protein Albumin Vitamin B12 Salicylates Acetaminophen Miscellaneous Test Crossmatch 03/31/19 03/31/19 03/31/19 18:58 20:28 21:09 WBC RBC Hgb Hct MCV MCH MCHC RDW Plt Count [place] % (Auto) Lymph # Seg Neuts % (Manual) Lymphocytes % (Manual) Nucleated RBC % Seg Neutrophils # Man Lymphocytes # (Manual) Monocytes # (Manual) PT INR APTT D-Dimer POC ABG pH ABG pH POC ABG pO2 ABG pO2 ABG HCO3 ABG O2 Saturation ABG Base Excess ABG Hemoglobin VBG pH Oxyhemoglobin Sodium Potassium Chloride Carbon Dioxide BUN Creatinine Glucose POC Glucose 152 H 138 H 136 H Lactic Acid Calcium Phosphorus Magnesium Iron TIBC Direct Bilirubin AST ALT Alkaline Phosphatase Total Creatine Kinase CK-MB (CK-2) C-Reactive Protein Total Protein Albumin Vitamin B12 Salicylates Acetaminophen Miscellaneous Test Crossmatch 03/31/19 03/31/19 04/01/19 22:15 23:10 00:05 WBC RBC Hgb Hct MCV MCH MCHC RDW Plt Count [place] % (Auto) Lymph # Seg Neuts % (Manual) Lymphocytes % (Manual) Nucleated RBC % Seg Neutrophils # Man Lymphocytes # (Manual) Monocytes # (Manual) PT INR APTT D-Dimer POC ABG pH ABG pH POC ABG pO2 ABG pO2 ABG HCO3 ABG O2 Saturation ABG Base Excess ABG Hemoglobin VBG pH Oxyhemoglobin Sodium Potassium Chloride Carbon Dioxide BUN Creatinine Glucose POC Glucose 137 H 148 H 143 H Lactic Acid Calcium Phosphorus Magnesium Iron TIBC Direct Bilirubin AST ALT Alkaline Phosphatase Total Creatine Kinase CK-MB (CK-2) C-Reactive Protein Total Protein Albumin Vitamin B12 Salicylates Acetaminophen Miscellaneous Test Crossmatch 04/01/19 04/01/19 04/01/19 01:17 02:11 03:12 WBC RBC Hgb Hct MCV MCH MCHC RDW Plt Count [place] % (Auto) Lymph # Seg Neuts % (Manual) Lymphocytes % (Manual) Nucleated RBC % Seg Neutrophils # Man Lymphocytes # (Manual) Monocytes # (Manual) PT INR APTT D-Dimer POC ABG pH ABG pH POC ABG pO2 ABG pO2 ABG HCO3 ABG O2 Saturation ABG Base Excess ABG Hemoglobin VBG pH Oxyhemoglobin Sodium Potassium Chloride Carbon Dioxide BUN Creatinine Glucose POC Glucose 151 H 155 H 140 H Lactic Acid Calcium Phosphorus Magnesium Iron TIBC Direct Bilirubin AST ALT Alkaline Phosphatase Total Creatine Kinase CK-MB (CK-2) C-Reactive Protein Total Protein Albumin Vitamin B12 Salicylates Acetaminophen Miscellaneous Test Crossmatch 04/01/19 04/01/19 04/01/19 04:03 04:16 05:01 WBC RBC 2.05 L Hgb 6.8 L Hct 20.5 L MCV 100 H MCH 33 H MCHC RDW 17.7 H Plt Count 53 L [place] % (Auto) Lymph # Seg Neuts % (Manual) 71.0 H Lymphocytes % (Manual) Nucleated RBC % Seg Neutrophils # Man Lymphocytes # (Manual) Monocytes # (Manual) PT INR APTT D-Dimer POC ABG pH ABG pH POC ABG pO2 ABG pO2 ABG HCO3 ABG O2 Saturation ABG Base Excess ABG Hemoglobin VBG pH Oxyhemoglobin Sodium Potassium Chloride Carbon Dioxide BUN Creatinine Glucose POC Glucose 143 H 142 H Lactic Acid Calcium Phosphorus Magnesium Iron TIBC Direct Bilirubin AST ALT Alkaline Phosphatase Total Creatine Kinase CK-MB (CK-2) C-Reactive Protein Total Protein Albumin Vitamin B12 Salicylates Acetaminophen Miscellaneous Test Crossmatch 04/01/19 04/01/19 04/01/19 05:01 05:08 05:23 WBC RBC Hgb Hct MCV MCH MCHC RDW Plt Count [place] % (Auto) Lymph # Seg Neuts % (Manual) Lymphocytes % (Manual) Nucleated RBC % Seg Neutrophils # Man Lymphocytes # (Manual) Monocytes # (Manual) PT INR APTT D-Dimer POC ABG pH ABG pH POC ABG pO2 ABG pO2 ABG HCO3 ABG O2 Saturation ABG Base Excess ABG Hemoglobin VBG pH Oxyhemoglobin Sodium Potassium Chloride Carbon Dioxide BUN Creatinine Glucose POC Glucose 119 H 115 H Lactic Acid Calcium Phosphorus Magnesium Iron TIBC Direct Bilirubin 0.3 H AST 4601 H ALT 1542 H Alkaline Phosphatase 185 H Total Creatine Kinase CK-MB (CK-2) C-Reactive Protein Total Protein 3.8 L Albumin 1.6 L Vitamin B12 Salicylates Acetaminophen Miscellaneous Test Crossmatch 04/01/19 04/01/19 04/01/19 06:37 08:15 09:50 WBC RBC Hgb 6.5 L Hct 19.2 L* MCV MCH MCHC RDW Plt Count [place] % (Auto) Lymph # Seg Neuts % (Manual) Lymphocytes % (Manual) Nucleated RBC % Seg Neutrophils # Man Lymphocytes # (Manual) Monocytes # (Manual) PT INR APTT D-Dimer POC ABG pH ABG pH POC ABG pO2 ABG pO2 ABG HCO3 ABG O2 Saturation ABG Base Excess ABG Hemoglobin VBG pH Oxyhemoglobin Sodium Potassium Chloride Carbon Dioxide BUN Creatinine Glucose POC Glucose 124 H 138 H Lactic Acid Calcium Phosphorus Magnesium Iron TIBC Direct Bilirubin AST ALT Alkaline Phosphatase Total Creatine Kinase CK-MB (CK-2) C-Reactive Protein Total Protein Albumin Vitamin B12 Salicylates Acetaminophen Miscellaneous Test Crossmatch 04/01/19 04/01/19 04/01/19 10:10 10:31 11:35 WBC RBC Hgb Hct MCV MCH MCHC RDW Plt Count [place] % (Auto) Lymph # Seg Neuts % (Manual) Lymphocytes % (Manual) Nucleated RBC % Seg Neutrophils # Man Lymphocytes # (Manual) Monocytes # (Manual) PT INR APTT D-Dimer POC ABG pH ABG pH POC ABG pO2 ABG pO2 ABG HCO3 ABG O2 Saturation ABG Base Excess ABG Hemoglobin VBG pH Oxyhemoglobin Sodium 149 H Potassium 3.5 L Chloride 119.9 H Carbon Dioxide 21 L BUN 33 H Creatinine 0.5 L Glucose 142 H POC Glucose 185 H 201 H Lactic Acid Calcium 7.3 L Phosphorus Magnesium Iron TIBC Direct Bilirubin AST 3686 H ALT 1440 H Alkaline Phosphatase 185 H Total Creatine Kinase CK-MB (CK-2) C-Reactive Protein Total Protein 3.7 L Albumin 1.8 L Vitamin B12 Salicylates Acetaminophen Miscellaneous Test Crossmatch 04/01/19 04/01/19 04/01/19 13:05 14:35 17:13 WBC RBC Hgb Hct MCV MCH MCHC RDW Plt Count [place] % (Auto) Lymph # Seg Neuts % (Manual) Lymphocytes % (Manual) Nucleated RBC % Seg Neutrophils # Man Lymphocytes # (Manual) Monocytes # (Manual) PT INR APTT D-Dimer POC ABG pH ABG pH POC ABG pO2 ABG pO2 ABG HCO3 ABG O2 Saturation ABG Base Excess ABG Hemoglobin VBG pH Oxyhemoglobin Sodium Potassium Chloride Carbon Dioxide BUN Creatinine Glucose POC Glucose 169 H 134 H 69 L Lactic Acid Calcium Phosphorus Magnesium Iron TIBC Direct Bilirubin AST ALT Alkaline Phosphatase Total Creatine Kinase CK-MB (CK-2) C-Reactive Protein Total Protein Albumin Vitamin B12 Salicylates Acetaminophen Miscellaneous Test Crossmatch 04/01/19 04/01/19 04/01/19 17:14 18:30 22:50 WBC RBC Hgb Hct MCV MCH MCHC RDW Plt Count [place] % (Auto) Lymph # Seg Neuts % (Manual) Lymphocytes % (Manual) Nucleated RBC % Seg Neutrophils # Man Lymphocytes # (Manual) Monocytes # (Manual) PT INR APTT D-Dimer 5203.68 H POC ABG pH ABG pH POC ABG pO2 ABG pO2 ABG HCO3 ABG O2 Saturation ABG Base Excess ABG Hemoglobin VBG pH Oxyhemoglobin Sodium Potassium Chloride Carbon Dioxide BUN Creatinine Glucose POC Glucose 128 H 342 H Lactic Acid Calcium Phosphorus Magnesium Iron TIBC Direct Bilirubin AST ALT Alkaline Phosphatase Total Creatine Kinase CK-MB (CK-2) C-Reactive Protein Total Protein Albumin Vitamin B12 Salicylates Acetaminophen Miscellaneous Test Crossmatch 04/01/19 04/02/19 04/02/19 Unknown 03:40 03:49 WBC RBC Hgb Hct MCV MCH MCHC RDW Plt Count [place] % (Auto) Lymph # Seg Neuts % (Manual) Lymphocytes % (Manual) Nucleated RBC % Seg Neutrophils # Man Lymphocytes # (Manual) Monocytes # (Manual) PT INR APTT D-Dimer POC ABG pH ABG pH POC ABG pO2 ABG pO2 78.3 L 142.8 H ABG HCO3 15.5 L ABG O2 Saturation ABG Base Excess -3.5 L -8.2 L ABG Hemoglobin 6.8 L 8.2 L VBG pH Oxyhemoglobin 94.3 L Sodium Potassium Chloride Carbon Dioxide BUN Creatinine Glucose POC Glucose 247 H Lactic Acid Calcium Phosphorus Magnesium Iron TIBC Direct Bilirubin AST ALT Alkaline Phosphatase Total Creatine Kinase CK-MB (CK-2) C-Reactive Protein Total Protein Albumin Vitamin B12 Salicylates Acetaminophen Miscellaneous Test Crossmatch 04/02/19 04/02/19 04/02/19 06:50 07:48 07:48 WBC RBC 2.65 L Hgb 8.6 L Hct 25.1 L MCV MCH MCHC RDW 17.6 H Plt Count 48 L [place] % (Auto) Lymph # Seg Neuts % (Manual) Lymphocytes % (Manual) Nucleated RBC % Seg Neutrophils # Man Lymphocytes # (Manual) Monocytes # (Manual) PT INR APTT D-Dimer POC ABG pH ABG pH POC ABG pO2 ABG pO2 ABG HCO3 ABG O2 Saturation ABG Base Excess ABG Hemoglobin VBG pH Oxyhemoglobin Sodium Potassium 3.5 L Chloride 115.7 H Carbon Dioxide 19 L BUN 29 H Creatinine 0.5 L Glucose 159 H POC Glucose 200 H Lactic Acid Calcium 7.5 L Phosphorus Magnesium Iron TIBC Direct Bilirubin AST 1418 H ALT 1134 H Alkaline Phosphatase 242 H Total Creatine Kinase CK-MB (CK-2) C-Reactive Protein Total Protein 4.2 L Albumin 2.1 L Vitamin B12 Salicylates Acetaminophen Miscellaneous Test Crossmatch 04/02/19 04/02/19 04/02/19 11:18 14:07 18:09 WBC RBC Hgb Hct MCV MCH MCHC RDW Plt Count [place] % (Auto) Lymph # Seg Neuts % (Manual) Lymphocytes % (Manual) Nucleated RBC % Seg Neutrophils # Man Lymphocytes # (Manual) Monocytes # (Manual) PT INR APTT D-Dimer POC ABG pH ABG pH POC ABG pO2 ABG pO2 ABG HCO3 ABG O2 Saturation ABG Base Excess ABG Hemoglobin VBG pH Oxyhemoglobin Sodium Potassium Chloride Carbon Dioxide BUN Creatinine Glucose POC Glucose 154 H 149 H 188 H Lactic Acid Calcium Phosphorus Magnesium Iron TIBC Direct Bilirubin AST ALT Alkaline Phosphatase Total Creatine Kinase CK-MB (CK-2) C-Reactive Protein Total Protein Albumin Vitamin B12 Salicylates Acetaminophen Miscellaneous Test Crossmatch 04/02/19 04/02/19 04/03/19 19:46 23:05 02:58 WBC RBC Hgb Hct MCV MCH MCHC RDW Plt Count [place] % (Auto) Lymph # Seg Neuts % (Manual) Lymphocytes % (Manual) Nucleated RBC % Seg Neutrophils # Man Lymphocytes # (Manual) Monocytes # (Manual) PT INR APTT D-Dimer POC ABG pH ABG pH POC ABG pO2 ABG pO2 ABG HCO3 ABG O2 Saturation ABG Base Excess ABG Hemoglobin VBG pH Oxyhemoglobin Sodium Potassium Chloride Carbon Dioxide BUN Creatinine Glucose POC Glucose 209 H 247 H 166 H Lactic Acid Calcium Phosphorus Magnesium Iron TIBC Direct Bilirubin AST ALT Alkaline Phosphatase Total Creatine Kinase CK-MB (CK-2) C-Reactive Protein Total Protein Albumin Vitamin B12 Salicylates Acetaminophen Miscellaneous Test Crossmatch 04/03/19 04/03/19 04/03/19 03:40 03:40 05:35 WBC RBC 2.87 L Hgb 9.3 L Hct 27.0 L MCV MCH MCHC RDW 17.2 H Plt Count 65 L [place] % (Auto) 9.8 H Lymph # 1.1 L Seg Neuts % (Manual) Lymphocytes % (Manual) Nucleated RBC % Seg Neutrophils # Man Lymphocytes # (Manual) Monocytes # (Manual) PT INR APTT D-Dimer POC ABG pH ABG pH POC ABG pO2 ABG pO2 97.7 H ABG HCO3 19.3 L ABG O2 Saturation ABG Base Excess -5.0 L ABG Hemoglobin 8.0 L VBG pH Oxyhemoglobin Sodium 147 H Potassium 3.5 L Chloride 116.7 H Carbon Dioxide 18 L BUN Creatinine 0.4 L Glucose 150 H POC Glucose Lactic Acid Calcium 8.1 L Phosphorus 2.20 L Magnesium Iron TIBC Direct Bilirubin AST 594 H ALT 861 H Alkaline Phosphatase 299 H Total Creatine Kinase CK-MB (CK-2) C-Reactive Protein Total Protein 4.4 L Albumin 2.1 L Vitamin B12 Salicylates Acetaminophen Miscellaneous Test Crossmatch 04/03/19 04/03/19 04/03/19 07:02 08:23 11:58 WBC RBC Hgb Hct MCV MCH MCHC RDW Plt Count [place] % (Auto) Lymph # Seg Neuts % (Manual) Lymphocytes % (Manual) Nucleated RBC % Seg Neutrophils # Man Lymphocytes # (Manual) Monocytes # (Manual) PT INR APTT D-Dimer POC ABG pH ABG pH POC ABG pO2 ABG pO2 ABG HCO3 ABG O2 Saturation ABG Base Excess ABG Hemoglobin VBG pH Oxyhemoglobin Sodium Potassium Chloride Carbon Dioxide BUN Creatinine Glucose POC Glucose 135 H 132 H 179 H Lactic Acid Calcium Phosphorus Magnesium Iron TIBC Direct Bilirubin AST ALT Alkaline Phosphatase Total Creatine Kinase CK-MB (CK-2) C-Reactive Protein Total Protein Albumin Vitamin B12 Salicylates Acetaminophen Miscellaneous Test Crossmatch 04/03/19 15:11 WBC RBC Hgb Hct MCV MCH MCHC RDW Plt Count [place] % (Auto) Lymph # Seg Neuts % (Manual) Lymphocytes % (Manual) Nucleated RBC % Seg Neutrophils # Man Lymphocytes # (Manual) Monocytes # (Manual) PT INR APTT D-Dimer POC ABG pH ABG pH POC ABG pO2 ABG pO2 ABG HCO3 ABG O2 Saturation ABG Base Excess ABG Hemoglobin VBG pH Oxyhemoglobin Sodium Potassium Chloride Carbon Dioxide BUN Creatinine Glucose POC Glucose 213 H Lactic Acid Calcium Phosphorus Magnesium Iron TIBC Direct Bilirubin AST ALT Alkaline Phosphatase Total Creatine Kinase CK-MB (CK-2) C-Reactive Protein Total Protein Albumin Vitamin B12 Salicylates Acetaminophen Miscellaneous Test Crossmatch
[2019-04-03] MEDS: LANTUS SUB-Q SCH (21:25)
--- NOTE | 2019-04-03 21:46 | Electroencephalogram Report ---
Electroencephalogram EEG Date of exam: 04/03/19 History: Patient is a 28-year-old woman with history of diabetes, polysubstance abuse, history of seizures. She presented on 03/29/2019 after having a cardiac arrest. The patient was given CPR and returned to spontaneous circulation. Description: DESCRIPTION OF THE PROCEDURE: Electrodes were applied using Paste technique in positions dictated by International 10-20 system of placement. In addition to EEG data EKG and eye movements were recorded. DESCRIPTION OF ACTIVITY: At the onset of this recording, the patient is lying supine. In the background we note a 2-4 Hz delta activity that has notably low amplitude. There are no asymmetries in amplitude or frequency between hemispheres. Absent posterior dominant rhythm noted, with background rhythm consisting of generalized slowing in delta range with admixed faster activity in beta range. No obvious reactivity noted. Significant muscle artifact noted during recording. There was also a period of tachycardia and tachypnea noted during recording of EEG. Intermittent photic stimulation was not performed. Hyperventilation was not performed. EEG Impression: 1) Generalized slowing. 2) No seizures or epileptiform discharges CLINICAL INTERPRETATION: This routine video EEG, performed is abnormal secondary to above findings and is consistent with bi-hemispheric dysfunction and encephalopathy. The above described finding of diffuse slowing is etiologically non-specific and similar findings have been reported in cases of toxic, metabolic, hypoxic ischemic, infectious, medication, sleep deprivation, dementia,post-ictal state, and other causes of diffuse and multifocal encephalopathy.
[2019-04-04] MEDS: fentaNYL DRIP Premix 2,000 MCG/100 ML BAG IV SCH (01:10)
[2019-04-04] MEDS: HumuLIN R SUB-Q SCH ×5 (03:20→18:19)
[2019-04-04] MEDS: CEFEPIME/NS 2 GM/100 ML 2 GM/100 ML BAG IV SCH ×3 (05:36→21:14)
[2019-04-04] MEDS: FLAGYL 500 MG/100 ML 500 MG/100 ML BAG IV SCH ×3 (05:36→21:08)
--- NOTE | 2019-04-04 07:22 | XRay Report ---
CHEST 1 VIEW 0224 INDICATION / CLINICAL INFORMATION: follow up respiratory failure. COMPARISON: 04/03/2019 FINDINGS: SUPPORT DEVICES: Stable HEART / MEDIASTINUM: Stable LUNGS / PLEURA: Infiltrate in the left lung appears mildly improved. Right lung field is clear. No pn eumothorax. ADDITIONAL FINDINGS: No significant additional findings. IMPRESSION: Improvement Signer Name: Jair Woo MD Signed: 04/04/2019 7:17 AM Workstation Name: [id number]
--- NOTE | 2019-04-04 09:10 | Progress Note ---
Assessment and Plan Assessment and plan: 28 year old woman with a history of diabetes was brought to the emergency room following a cardiac arrest. Her last well-known time was 10:30 in the morning, she was traveling with a friend, she was unresponsive in the back seat. EMS was called, CPR was started and continued here in the emergency room. Patient was intubated in the ER, noted hypotensive started on dobutamine, epinephrine and Levophed drip, given IV fluids, found to be in DKA with BG ~2200, several metabolic derangements - placed on insulin drip and admitted to ICU. Still intubated on vent, minimal response. Acute respiratory failure - on vent, cont nebs, CC consulted Acute encephalopathy, POA - CT head negative - likely from cardiac arrest - consulted neurology Cardiac arrest s/p resuscitation - likely 2/2 severe hyperglycemia - preserved EF onb2d echo DKA, severe - BG was >2200 on admission - s/p insulin drip. cont iv fluid - monitor BG q4h, on TF and on subqu insulin - adjust dose as needed Shock hypotensive vs sepsis - cont iv fluid, s/p pressor support - follow Cx result, cont abx - weaned off pressor as tolerated Sepsis with possible aspiration PNA - evident on CXR on admission with left sided infiltrates - cont abx per ID Head lice Permethin given Acute renal failure, likely vasomotor nephropathy - resolved - cont iv fluid, monitor BMP Anemia, acute on chronic - no sign of blood loss s/p 2 Units PRBC transfused Hyperkalemia, resolved with fluid and insulin Hypernatremia Repeat in am hypokalemia, replete as needed, monitor BMP Shock liver with elevated LFT and Coagulopathy - due to cardiac arrest and hypotension - cont to monitor Hypermagnesemia Hyperphosphatemia - cont to monitor, improved DVT Px, heparin Poor prognosis discussed with mother at bedside on 04/03/19 Mother was waiting on EEG and MRI report to decide level of care. The high probability of a clinically significant, sudden or life threatening deterioration of the [multiple] system(s) required my full and direct attention, intervention and personal management. The aggregate critical care time was [34] minutes. This time is in addition to time spent performing reported procedures but includes the following: [x] Data Review and interpretation [x] Patient assessment and monitoring of vital signs [x] Documentation [x] Medication orders and management History Interval history: Minimal responsive still intubated Hospitalist Physical - Physical exam Narrative exam: Gen: Not in acute distress, intubated, on vent HEENT: Normocephalic, atraumatic Neck: supple, no JVD Heart: S1 and S2 reg, no murmurs, rubs or gallop Lungs: Clear to auscultation, no rhonchi, no wheeze Abd: soft, non tender, non distended, normal BS, Ext: No edema, no clubbing, no cyanosis Neuro: Minimal responsive, does not follow commands, - Constitutional Vitals: Temp Pulse Resp BP Pulse Ox 97 F L 104 H 14 118/75 100 04/04/19 04:00 04/04/19 09:00 04/04/19 09:00 04/04/19 09:00 04/04/19 08:15 General appearance: Present: disheveled, other (intubated, sedated) Results - Labs CBC & Chem 7: 04/03/19 03:40 04/03/19 03:40 Labs: Laboratory Last Values WBC 6.3 K/mm3 (4.5-11.0) 04/03/19 03:40 RBC 2.87 M/mm3 (3.65-5.03) L 04/03/19 03:40 Hgb 9.3 gm/dl (10.1-14.3) L 04/03/19 03:40 Hct 27.0 % (30.3-42.9) L 04/03/19 03:40 MCV 94 fl (79-97) 04/03/19 03:40 MCH 32 pg (28-32) 04/03/19 03:40 MCHC 34 % (30-34) 04/03/19 03:40 RDW 17.2 % (13.2-15.2) H 04/03/19 03:40 Plt Count 65 K/mm3 (140-440) L 04/03/19 03:40 Lymph % (Auto) 16.9 % (13.4-35.0) 04/03/19 03:40 [place] % (Auto) 9.8 % (0.0-7.3) H 04/03/19 03:40 Eos % (Auto) 3.2 % (0.0-4.3) 04/03/19 03:40 Baso % (Auto) 0.4 % (0.0-1.8) 04/03/19 03:40 Lymph # 1.1 K/mm3 (1.2-5.4) L 04/03/19 03:40 [place] # 0.6 K/mm3 (0.0-0.8) 04/03/19 03:40 Eos # 0.2 K/mm3 (0.0-0.4) 04/03/19 03:40 Baso # 0.0 K/mm3 (0.0-0.1) 04/03/19 03:40 Add Manual Diff Complete 04/01/19 05:01 Total Counted 100 04/01/19 05:01 Seg Neutrophils % 69.7 % (40.0-70.0) 04/03/19 03:40 Seg Neuts % (Manual) 71.0 % (40.0-70.0) H 04/01/19 05:01 0 % 04/01/19 05:01 20.0 % (13.4-35.0) 04/01/19 05:01 Reactive Lymphs % (Man) 0 % 04/01/19 05:01 7.0 % (0.0-7.3) 04/01/19 05:01 2.0 % (0.0-4.3) 04/01/19 05:01 0 % (0.0-1.8) 04/01/19 05:01 0 % 04/01/19 05:01 0 % 04/01/19 05:01 0 % 04/01/19 05:01 0 % 04/01/19 05:01 Nucleated RBC % Not Reportable 04/01/19 05:01 Seg Neutrophils # 4.4 K/mm3 (1.8-7.7) 04/03/19 03:40 Seg Neutrophils # Man 4.8 K/mm3 (1.8-7.7) 04/01/19 05:01 Band Neutrophils # 0.0 K/mm3 04/01/19 05:01 1.4 K/mm3 (1.2-5.4) 04/01/19 05:01 Abs React Lymphs (Man) 0.0 K/mm3 04/01/19 05:01 0.5 K/mm3 (0.0-0.8) 04/01/19 05:01 0.1 K/mm3 (0.0-0.4) 04/01/19 05:01 0.0 K/mm3 (0.0-0.1) 04/01/19 05:01 0.0 K/mm3 04/01/19 05:01 0.0 K/mm3 04/01/19 05:01 0.0 K/mm3 04/01/19 05:01 Blast Cells # 0.0 K/mm3 04/01/19 05:01 WBC Morphology Not Reportable 04/01/19 05:01 Hypersegmented Neuts Not Reportable 04/01/19 05:01 Hyposegmented Neuts Not Reportable 04/01/19 05:01 Hypogranular Neuts Not Reportable 04/01/19 05:01 Not Reportable 04/01/19 05:01 Not Reportable 04/01/19 05:01 Not Reportable 04/01/19 05:01 Not Reportable 04/01/19 05:01 Not Reportable 04/01/19 05:01 Not Reportable 04/01/19 05:01 Not Reportable 04/01/19 05:01 Not Reportable 04/01/19 05:01 Plt Clumps, EDTA Not Reportable 04/01/19 05:01 Not Reportable 04/01/19 05:01 Not Reportable 04/01/19 05:01 Not Reportable 04/01/19 05:01 Plt Morphology Comment Not Reportable 04/01/19 05:01 RBC Morphology Normal 04/01/19 05:01 Dimorphic RBCs Not Reportable 04/01/19 05:01 Not Reportable 04/01/19 05:01 Not Reportable 04/01/19 05:01 Not Reportable 04/01/19 05:01 Not Reportable 04/01/19 05:01 Not Reportable 04/01/19 05:01 Not Reportable 04/01/19 05:01 Not Reportable 04/01/19 05:01 Not Reportable 04/01/19 05:01 Not Reportable 04/01/19 05:01 Not Reportable 04/01/19 05:01 Not Reportable 04/01/19 05:01 Not Reportable 04/01/19 05:01 Not Reportable 04/01/19 05:01 Not Reportable 04/01/19 05:01 Not Reportable 04/01/19 05:01 Not Reportable 04/01/19 05:01 Not Reportable 04/01/19 05:01 Not Reportable 04/01/19 05:01 Not Reportable 04/01/19 05:01 Acanthocytes (Spur) Not Reportable 04/01/19 05:01 Rouleaux Not Reportable 04/01/19 05:01 Not Reportable 04/01/19 05:01 Not Reportable 04/01/19 05:01 Not Reportable 04/01/19 05:01 Not Reportable 04/01/19 05:01 Hem Pathologist Commnt No 04/01/19 05:01 PT 13.9 Sec. (12.2-14.9) 04/01/19 17:14 INR 1.10 (0.87-1.13) 04/01/19 17:14 APTT 74.5 Sec. (24.2-36.6) H* 03/29/19 19:20 313 mg/dl (211-480) 04/01/19 17:14 5203.68 ng/mlDDU (0-234) H 04/01/19 17:14 POC ABG pH 7.374 (7.35-7.45) 04/04/19 03:46 ABG pH 7.396 pH Units (7.350-7.450) 04/03/19 05:35 POC ABG pCO2 36.2 (35-45) 04/04/19 03:46 ABG pCO2 32.2 mm Hg 04/03/19 05:35 POC ABG pO2 96 (80-105) 04/04/19 03:46 ABG pO2 97.7 mm Hg (80.0-90.0) H 04/03/19 05:35 POC ABG HCO3 21.2 (22-26 mml/L) 04/04/19 03:46 ABG HCO3 19.3 mmol/L (20.0-26.0) L 04/03/19 05:35 POC ABG Total CO2 22 (23-27mmol/L) 04/04/19 03:46 POC ABG O2 Sat 97 04/04/19 03:46 ABG O2 Saturation 97.6 % (95.0-99.0) 04/03/19 05:35 ABG O2 Content 10.9 (0.0-44) 04/03/19 05:35 POC ABG Base Excess -4 ((-2) - (+3)mmol/L) 04/04/19 03:46 ABG Base Excess -5.0 mmol/L (-2.0-3.0) L 04/03/19 05:35 ABG Hemoglobin 8.0 gm/dl (12.0-16.0) L 04/03/19 05:35 ABG Carboxyhemoglobin 2.1 % (0.0-5.0) 04/03/19 05:35 ABG Methemoglobin 0.5 % (0.0-1.5) 04/03/19 05:35 VBG pH 6.800 (7.320-7.420) L* 03/29/19 19:47 95.1 % (95.0-99.0) 04/03/19 05:35 25 % 04/04/19 03:46 Sodium 147 mmol/L (137-145) H 04/03/19 03:40 Potassium 3.5 mmol/L (3.6-5.0) L 04/03/19 03:40 Chloride 116.7 mmol/L (98-107) H 04/03/19 03:40 Carbon Dioxide 18 mmol/L (22-30) L 04/03/19 03:40 16 mmol/L 04/03/19 03:40 BUN 15 mg/dL (7-17) 04/03/19 03:40 0.4 mg/dL (0.7-1.2) L 04/03/19 03:40 Estimated GFR > 60 ml/min 04/03/19 03:40 38 % 04/03/19 03:40 Glucose 150 mg/dL (65-100) H 04/03/19 03:40 POC Glucose 131 (70-105) H 04/04/19 06:41 Lactic Acid 3.30 mmol/L (0.7-2.0) H* 03/31/19 07:50 Calcium 8.1 mg/dL (8.4-10.2) L 04/03/19 03:40 Phosphorus 2.20 mg/dL (2.5-4.5) L 04/03/19 03:40 Magnesium 2.60 mg/dL (1.7-2.3) H 03/30/19 05:26 Iron 26 ug/dL (37-170) L 03/31/19 08:20 TIBC 193 mcg/dL (250-450) L 03/31/19 08:20 0.60 mg/dL (0.1-1.2) 04/03/19 03:40 0.2 mg/dL (0-0.2) 04/02/19 07:48 0.5 mg/dL 04/02/19 07:48 AST 594 units/L (5-40) H 04/03/19 03:40 ALT 861 units/L (7-56) H 04/03/19 03:40 299 units/L (35-129) H 04/03/19 03:40 2465 units/L (30-135) H 03/30/19 05:26 CK-MB (CK-2) 52.7 ng/mL (0.0-4.0) H 03/30/19 05:26 CK-MB (CK-2) Rel Index 2.1 (0-4) 03/30/19 05:26 0.014 ng/mL (0.00-0.029) 03/30/19 05:26 2.40 mg/dL (0.00-1.30) H 03/30/19 12:57 4.4 g/dL (6.3-8.2) L 04/03/19 03:40 2.1 g/dL (3.9-5) L 04/03/19 03:40 0.9 % 04/03/19 03:40 Vitamin B12 > 2000 pg/mL (211-911) H 03/31/19 08:20 > 20 ng/mL (7.3-26.0) 03/31/19 08:20 HCG, Qual Negative (Negative) 03/29/19 19:20 Yellow (Yellow) 03/29/19 23:10 Slightly-cloudy (Clear) 03/29/19 23:10 6.0 (5.0-7.0) 03/29/19 23:10 Ur Specific [place] 1.021 (1.003-1.030) 03/29/19 23:10 100 mg/dl mg/dL (Negative) 03/29/19 23:10 >=500 mg/dL (Negative) 03/29/19 23:10 20 mg/dL (Negative) 03/29/19 23:10 Lg (Negative) 03/29/19 23:10 Neg (Negative) 03/29/19 23:10 Neg (Negative) 03/29/19 23:10 < 2.0 mg/dL (<2.0) 03/29/19 23:10 Ur Leukocyte Esterase Neg (Negative) 03/29/19 23:10 1.0 /HPF (0.0-6.0) 03/29/19 23:10 1.0 /HPF (0.0-6.0) 03/29/19 23:10 Few /HPF 03/29/19 23:10 Salicylates 0.8 mg/dL (2.8-20.0) L 03/30/19 Unknown Presumptive negative 03/29/19 23:10 Presumptive negative 03/29/19 23:10 Acetaminophen < 5.0 ug/mL (10.0-30.0) L 03/30/19 Unknown Ur Barbiturates Screen Presumptive negative 03/29/19 23:10 Ur Phencyclidine Scrn Presumptive negative 03/29/19 23:10 Ur Amphetamines Screen Presumptive negative 03/29/19 23:10 U Benzodiazepines Scrn Presumptive negative 03/29/19 23:10 Presumptive negative 03/29/19 23:10 U Marijuana (THC) Screen Presumptive negative 03/29/19 23:10 Disclamer 03/29/19 23:10 Hepatitis A IgM Ab Non-reactive (NonReactive) 03/30/19 Unknown Hep Bs Antigen Non-reactive (Negative) 03/30/19 Unknown Hep B Core IgM Ab Non-reactive (NonReactive) 03/30/19 Unknown Non-reactive (NonReactive) 03/30/19 Unknown Flexitest 1 H 03/30/19 14:00 Blood Type O POSITIVE 03/30/19 03:30 Antibody Screen Negative 03/30/19 03:30 Crossmatch See Detail 03/30/19 03:30 Active Medications - Current Medications Current Medications: Generic Name Dose Route Start Last Admin Trade Name Freq PRN Reason Stop Dose Admin Acetaminophen 650 mg 03/29/19 23:34 04/01/19 23:38 Tylenol PO 650 mg Q4H PRN Administration Pain MILD(1-3)/Fever >100.5/WARE Lipase/Protease/Amylase 1 each 04/02/19 11:[address] 10,500 Unit FEEDTUBE PRN PRN For Clogged Feeding Tube Dextrose 0 ml 03/29/19 20:33 03/31/19 02:15 D50w (25gm) Syringe IV 10 ml PRN PRN Administration Hypoglycemia Famotidine 20 mg 04/02/19 10:00 04/03/19 21:24 Pepcid PO 20 mg BID ZAMZAM Administration Fentanyl 50 mcg 03/30/19 11:24 Sublimaze IV Q10MIN PRN ANALGESIA Hydrophilic Ointment 1 applic 03/30/19 11:24 Vaseline Lip Therapy TP Q2HR PRN Dry Lips Norepinephrine 4 mg in 250 mls @ 7.5 mls/hr 03/29/19 21:00 04/01/19 19:00 Levophed Drip 4 Mg/Ns 250 Ml IV 0 mcg/min TITR ZAMZAM 0 mls/hr Titration Protocol 2 MCG/MIN Vasopressin 20 unit/ Sodium 101 mls @ 9.09 mls/hr 03/29/19 23:45 04/02/19 07:45 Chloride IV 0 units/min TITR ZAMZAM 0 mls/hr Titration Protocol 0.03 UNITS/MIN Phenylephrine HCl 100 mg/ 100 mls @ 3 mls/hr 03/30/19 01:15 03/30/19 15:15 Sodium Chloride IV 0 mcg/min TITR ZAMZAM 0 mls/hr Titration Protocol 50 MCG/MIN Fentanyl Citrate 2,000 mcg in 100 mls @ 2.2 mls/hr 03/30/19 12:00 04/04/19 08:59 Fentanyl Drip Premix IV 0 mcg/kg/hr TITR ZAMZAM 0 mls/hr Titration Protocol 1 MCG/KG/HR Metronidazole 500 mg in 100 mls @ 100 mls/hr 03/30/19 14:00 04/04/19 05:36 Flagyl 500 Mg/100 Ml IV 04/06/19 23:59 100 mls/hr Q8HR ZAMZAM Administration Midazolam HCl 100 mg/ Sodium 100 mls @ 2 mls/hr 03/30/19 14:00 Chloride IV TITR ZAMZAM Protocol 2 MG/HR Cefepime HCl 2 gm in 100 mls @ 200 mls/hr 03/31/19 14:00 04/04/19 05:36 Maxipime/Ns 2 Gm/100 Ml IV 04/06/19 23:59 200 mls/hr Q8HR ZAMZAM Administration Insulin Glargine 5 units 04/02/19 22:00 04/03/19 21:25 Lantus SUB-Q 5 units QHS ZAMZAM Administration Insulin Human Regular 0 units 04/01/19 19:00 04/04/19 06:36 Humulin R SUB-Q Not Given Q4H [facility] Protocol Levetiracetam 500 mg 04/03/19 10:00 04/03/19 21:24 Keppra PO 500 mg BID ZAMZAM Administration Midazolam HCl 2 mg 03/30/19 13:14 Versed IV Q10MIN PRN Sedation Multi-Ingred Cream/Lotion/Oil/Oint 1 applic 03/30/19 11:24 03/31/19 04:28 Artificial Tears Ophth Oint OU 1 applic Q4HR PRN Administration Dry Eye(s) Ondansetron HCl 4 mg 03/29/19 23:34 Zofran IV Q8H PRN Nausea And Vomiting Simple Syrup 15 ml 04/02/19 11:44 Simple Syrup FEEDTUBE PRN PRN Hypoglycemia Simple Syrup 30 ml 04/02/19 11:44 Simple Syrup FEEDTUBE PRN PRN Hypoglycemia Sodium Bicarbonate 325 mg 04/02/19 11:44 Sodium Bicarbonate FEEDTUBE PRN PRN For Clogged Feeding Tube Sodium Chloride 10 ml 03/30/19 10:00 04/03/19 21:24 Sodium Chloride Flush Syringe 10 Ml IV 10 ml BID ZAMZAM Administration Sodium Chloride 10 ml 03/29/19 23:34 Sodium Chloride Flush Syringe 10 Ml IV PRN PRN LINE FLUSH Nutrition/Malnutrition Assess - Dietary Evaluation Nutrition/Malnutrition Findings: Nutrition Notes Start: 03/30/19 13:14 Freq: Status: Active Protocol: Document 04/02/19 11:37 FERNANDA (Rec: 04/02/19 11:44 FERNANDA [email or web address]) Nutrition Notes Need for Assessment generated from: MD Order Initial or Follow up Reassessment Current Diagnosis Diabetes,Sepsis,Respiratory Failure Other Pertinent Diagnosis s/p cardiac arrest, DKA, ARF, Shock liver Current Diet NPO Labs/Tests K 3.5 BUN 29 BG 159 Elevated LFTs Pertinent Medications Reviewed Height 5 ft Weight 52.2 kg [place] Body Weight (kg) 45.45 BMI 22.4 Subjective/Other Information RD consulted for TF. Pt remains on vent support. Burn Absent Trauma Absent #1 Nutrition Diagnosis Inadequate oral intake Diagnosis Progress(for reassessment Continues documentation) Is patient on ventilator? Yes Is Patient Ambulatory and/or Out of Bed No REE-([facility]-confined to bed) 1398.456 Calculation Used for Recommendations [facility] Additional Notes Pro needs 1.2-2g/k-104g/ day Fluid needs 1ml/kcal Nutrition Intervention Nutrition Support: Glucerna 1.2 at 50ml/hr with 80ml water flush q4h. Kcal 1,440 Protein (gm) 72 Fluid (mL) 966 Goal #1 TF tolerance Goal #2 TF to meet at least 75% energy and pro needs Follow-Up By: 04/04/19 Additional Comments F/U: new TF, vent status
--- NOTE | 2019-04-04 10:31 | Magnetic Resonance Report ---
MRI BRAIN WITHOUT CONTRAST INDICATION / CLINICAL INFORMATION: Anoxic brain injury. TECHNIQUE: Multisequence, multiplanar images were obtained. COMPARISON: CT head dated 03/29/2019 FINDINGS: CEREBRAL and CEREBELLAR HEMISPHERES: There is moderate diffuse cortical diffusion restriction through out both cerebral hemispheres and peripheral cerebellum. These areas are decreased signal on the ADC map. These findings are highly consistent with diffuse anoxic injury. No midline shift. No acute he morrhage. No chronic infarct. No extra-axial fluid collection. VENTRICLES: Normal in size and configuration for age. VISUALIZED ORBITS: No significant abnormality. VISUALIZED PARANASAL SINUSES: Moderate to severe diffuse mucosal thickening throughout the paranasal sinuses. The mastoid air cells are partially opacified with fluid. ADDITIONAL FINDINGS: None. IMPRESSION: Findings consistent with diffuse anoxic injury. No hemorrhage or significant mass effect. Signer Name: Checo Bravo Jr, MD Signed: 04/04/2019 10:26 AM Workstation Name: [id number]
[2019-04-04] MEDS: PEPCID PO SCH ×2 (10:45→21:34)
[2019-04-04] MEDS: SODIUM CHLORIDE FLUSH SYRINGE 10 ML IV SCH (10:45)
[2019-04-04] MEDS: KEPPRA PO SCH ×2 (10:45→21:34)
--- NOTE | 2019-04-04 10:54 | Progress Note ---
Assessment and Plan Acute toxic metabolic encephalopathy. Diabetic ketoacidosis. Severe sepsis with shock. Possible aspiration pneumonia. History of polysubstance abuse. Leukocytosis. Elevated serum transaminases, possible shock liver. Hyponatremia related to her severe hyperglycemia. Anemia that is macrocytic. History of seizure disorder. Severe metabolic acidosis. Acute kidney injury, possibly on chronic - weaning tenuously but Psupp down to 14 cm H2O - AMS may end up rate limiting factor to safe extubation - neurology evaluation ongoing - MRI consistent with diffuse anoxic injury - follow EEG report - continue set rate at 12/min while resting - H&H holding - continue contact isolation - follow HIT assay (No heparinoids) - continue to follow mental status closely - continue and de-escalate antiinfective's per ID recommendations - follow prn CRP & lactate levels to aid clinical decision making - continue daily SAT and SBT assessments as tolerated - off IV insulin - continue enteral nutrition with glucerna and adjust rate per scheduler conveyor - discontinued lew catheter - continue bronchodilators with pulmonary hygiene per RT - VAP bundle addressed - continue to wean supplemental O2 to keep O2 sats > 90% - VTE prophylaxis - Stress ulcer prophylaxis - continue accuchecks with glycemic control per SSI for target blood glucose 140-180 mg/dL - continue empiric antibiotics; de-escalate per ID rec's and based on clinical and microbiologic data - sedation target of RASS 0 to -1 - continue Keppra for seizures - continue mobility protocols / off loading for pressure ulcer prevention - Critical care bundles addressed - continue Seizure precautions - fall precautions - neuro-checks per RN - continue other care per attending / other consultants CONDITION: CRITICAL PROGNOSIS: GUARDED TO GRAVE CODE STATUS: FULL CODE The high probability of a clinically significant, sudden or life threatening deterioration of the [Neurology Respiratory, Cardiovascular] system(s) required my full and direct attention, intervention and personal management. The aggregate critical care time was [32] minutes. This time is in addition to time spent performing reported procedures but includes the following: [x] Data Review and interpretation [x] Patient assessment and monitoring of vital signs [x] Documentation [x] Medication orders and management Subjective Date of service: 04/04/19 Principal diagnosis: Ac Hypoxemic Resp Failure; DKA; Severe sepsis with shock; ANGELICA Interval history: Patient is seen today for: Acute Hypoxemic Resp Failure; Ac toxic metabolic encephalopathy; DKA; Severe sepsis with shock; Possible aspiration pneumonia; History of polysubstance abuse; History of seizure disorder; Acute kidney injury, possibly on chronic Seen and examined at bedside; 24hour events reviewed; nursing and respiratory care staff consulted; no adverse overnight events reported to me; resting peacefully in bed; AMS is persistent; remains off vasopressors but on MVS; no emesis or overt aspiration and no high grade fevers Objective Vital Signs - 12hr 04/03/19 04/03/19 04/03/19 23:00 23:15 23:36 Temperature 98.0 F Pulse Rate 102 H 101 H Pulse Rate [ From Monitor] Respiratory 12 Rate Blood Pressure 109/70 109/70 O2 Sat by Pulse 99 99 Oximetry 04/04/19 04/04/19 04/04/19 00:00 01:00 02:00 Temperature 98 F Pulse Rate 100 H 101 H 96 H Pulse Rate [ 100 H From Monitor] Respiratory 12 12 11 L Rate Blood Pressure 101/66 103/74 104/71 O2 Sat by Pulse 84 95 97 Oximetry 04/04/19 04/04/19 04/04/19 03:00 03:36 03:52 Temperature 97.0 F L Pulse Rate 96 H 102 H Pulse Rate [ From Monitor] Respiratory 12 Rate Blood Pressure 104/71 104/71 O2 Sat by Pulse 99 100 Oximetry 04/04/19 04/04/19 04/04/19 04:00 05:00 06:00 Temperature 97 F L Pulse Rate 97 H 99 H 103 H Pulse Rate [ 94 H From Monitor] Respiratory 11 L 13 11 L Rate Blood Pressure 109/74 108/74 122/77 O2 Sat by Pulse 99 99 100 Oximetry 04/04/19 04/04/19 04/04/19 07:00 08:00 08:15 Temperature 97.1 F L Pulse Rate 106 H 104 H 107 H Pulse Rate [ From Monitor] Respiratory 11 L 12 Rate Blood Pressure 113/73 120/75 120/75 O2 Sat by Pulse 100 100 Oximetry 04/04/19 09:00 Temperature Pulse Rate 104 H Pulse Rate [ From Monitor] Respiratory 14 Rate Blood Pressure 118/75 O2 Sat by Pulse Oximetry Constitutional: no acute distress, other (young CF normocephalic and atraumatic on MVS) Eyes: non-icteric ENT: oropharynx moist, other (ETT 22-23 cm Jessi) Neck: supple, no lymphadenopathy, no JVD Effort: mildly labored Ascultation: Bilateral: rhonchi Percussion: Bilateral: not dull Cardiovascular: regular rate and rhythm, other (sinus tachycardia) Gastrointestinal: normoactive bowel sounds, soft, non-tender, non-distended Integumentary: normal Extremities: no cyanosis, pink and warm, pulses normal, no ischemia or petechiae, edema (trace to 1+) Neurologic: non-focal exam (grossly), other (Sedated) Psychiatric: other (unable to assess) CBC and BMP: 04/07/19 04:30 04/07/19 04:30 ABG, PT/INR, D-dimer: ABG POC ABG pH 7.374 (7.35-7.45) 04/04/19 03:46 ABG pH 7.396 pH Units (7.350-7.450) 04/03/19 05:35 POC ABG pCO2 36.2 (35-45) 04/04/19 03:46 ABG pCO2 32.2 mm Hg 04/03/19 05:35 POC ABG pO2 96 (80-105) 04/04/19 03:46 ABG pO2 97.7 mm Hg (80.0-90.0) H 04/03/19 05:35 POC ABG HCO3 21.2 (22-26 mml/L) 04/04/19 03:46 POC ABG Total CO2 22 (23-27mmol/L) 04/04/19 03:46 POC ABG O2 Sat 97 04/04/19 03:46 ABG O2 Saturation 97.6 % (95.0-99.0) 04/03/19 05:35 PT/INR, D-dimer PT 13.9 Sec. (12.2-14.9) 04/01/19 17:14 INR 1.10 (0.87-1.13) 04/01/19 17:14 5203.68 ng/mlDDU (0-234) H 04/01/19 17:14 Abnormal lab findings: Abnormal Labs 03/29/19 03/29/19 03/29/19 19:11 19:20 19:20 WBC 26.7 H RBC 2.52 L Hgb 8.1 L Hct MCV 148 H MCH MCHC 22 L RDW 18.5 H Plt Count [place] % (Auto) Lymph # Seg Neuts % (Manual) 82.0 H Lymphocytes % (Manual) 7.0 L Nucleated RBC % Seg Neutrophils # Man 21.9 H Lymphocytes # (Manual) Monocytes # (Manual) 1.9 H PT 21.8 H INR 1.95 H APTT 74.5 H* D-Dimer POC ABG pH ABG pH POC ABG pO2 ABG pO2 ABG HCO3 ABG O2 Saturation ABG Base Excess ABG Hemoglobin VBG pH Oxyhemoglobin Sodium Potassium Chloride Carbon Dioxide BUN Creatinine Glucose POC Glucose > 500 H Lactic Acid Calcium Phosphorus Magnesium Iron TIBC Direct Bilirubin AST ALT Alkaline Phosphatase Total Creatine Kinase CK-MB (CK-2) C-Reactive Protein Total Protein Albumin Vitamin B12 Salicylates Acetaminophen Miscellaneous Test Crossmatch 03/29/19 03/29/19 03/29/19 19:20 19:47 20:59 WBC RBC Hgb Hct MCV MCH MCHC RDW Plt Count [place] % (Auto) Lymph # Seg Neuts % (Manual) Lymphocytes % (Manual) Nucleated RBC % Seg Neutrophils # Man Lymphocytes # (Manual) Monocytes # (Manual) PT INR APTT D-Dimer POC ABG pH 6.892 L ABG pH POC ABG pO2 236 H ABG pO2 ABG HCO3 ABG O2 Saturation ABG Base Excess ABG Hemoglobin VBG pH 6.800 L* Oxyhemoglobin Sodium 118 L* Potassium 9.0 H* Chloride 64.5 L Carbon Dioxide 7 L* BUN 53 H Creatinine 2.1 H Glucose 2196 H* POC Glucose Lactic Acid Calcium 12.4 H* Phosphorus Magnesium Iron TIBC Direct Bilirubin AST 3900 H ALT 1034 H Alkaline Phosphatase 316 H Total Creatine Kinase CK-MB (CK-2) C-Reactive Protein Total Protein 5.1 L Albumin 2.8 L Vitamin B12 Salicylates Acetaminophen Miscellaneous Test Crossmatch 03/29/19 03/29/19 03/29/19 22:45 22:45 22:45 WBC RBC Hgb Hct MCV MCH MCHC RDW Plt Count [place] % (Auto) Lymph # Seg Neuts % (Manual) Lymphocytes % (Manual) Nucleated RBC % Seg Neutrophils # Man Lymphocytes # (Manual) Monocytes # (Manual) PT INR APTT D-Dimer POC ABG pH ABG pH POC ABG pO2 ABG pO2 ABG HCO3 ABG O2 Saturation ABG Base Excess ABG Hemoglobin VBG pH Oxyhemoglobin Sodium 132 L D Potassium 7.0 H* Chloride 84.3 L Carbon Dioxide 3 L* BUN 48 H Creatinine 1.8 H Glucose 1779 H* POC Glucose Lactic Acid Calcium Phosphorus 21.70 H Magnesium 4.70 H Iron TIBC Direct Bilirubin AST ALT Alkaline Phosphatase Total Creatine Kinase 363 H CK-MB (CK-2) C-Reactive Protein Total Protein Albumin Vitamin B12 Salicylates Acetaminophen Miscellaneous Test Crossmatch 03/29/19 03/29/19 03/30/19 Unknown Unknown 00:11 WBC RBC Hgb Hct MCV MCH MCHC RDW Plt Count [place] % (Auto) Lymph # Seg Neuts % (Manual) Lymphocytes % (Manual) Nucleated RBC % Seg Neutrophils # Man Lymphocytes # (Manual) Monocytes # (Manual) PT INR APTT D-Dimer POC ABG pH ABG pH POC ABG pO2 ABG pO2 ABG HCO3 ABG O2 Saturation ABG Base Excess ABG Hemoglobin VBG pH Oxyhemoglobin Sodium 122 L Potassium 7.9 H* 6.4 H* Chloride 75.3 L 89.7 L Carbon Dioxide 3 L* 12 L D BUN 52 H 46 H Creatinine 2.0 H 1.7 H Glucose 2043 H* 1591 H* POC Glucose Lactic Acid Calcium 7.8 L Phosphorus 19.30 H Magnesium 3.90 H Iron TIBC Direct Bilirubin AST ALT Alkaline Phosphatase Total Creatine Kinase CK-MB (CK-2) C-Reactive Protein Total Protein Albumin Vitamin B12 Salicylates Acetaminophen Miscellaneous Test Crossmatch 03/30/19 03/30/19 03/30/19 00:11 02:14 02:14 WBC RBC Hgb Hct MCV MCH MCHC RDW Plt Count [place] % (Auto) Lymph # Seg Neuts % (Manual) Lymphocytes % (Manual) Nucleated RBC % Seg Neutrophils # Man Lymphocytes # (Manual) Monocytes # (Manual) PT INR APTT D-Dimer POC ABG pH ABG pH POC ABG pO2 ABG pO2 ABG HCO3 ABG O2 Saturation ABG Base Excess ABG Hemoglobin VBG pH Oxyhemoglobin Sodium Potassium Chloride Carbon Dioxide 9 L* BUN 45 H Creatinine 1.7 H Glucose 1155 H* POC Glucose Lactic Acid Calcium 7.9 L Phosphorus 10.90 H D 5.30 H D Magnesium 3.10 H 2.90 H Iron TIBC Direct Bilirubin AST ALT Alkaline Phosphatase Total Creatine Kinase CK-MB (CK-2) C-Reactive Protein Total Protein Albumin Vitamin B12 Salicylates Acetaminophen Miscellaneous Test Crossmatch 03/30/19 03/30/19 03/30/19 03:15 03:30 04:23 WBC 18.0 H RBC 2.31 L Hgb 7.3 L Hct 23.8 L D MCV 103 H MCH MCHC RDW 17.1 H Plt Count [place] % (Auto) Lymph # Seg Neuts % (Manual) 79.0 H Lymphocytes % (Manual) Nucleated RBC % Seg Neutrophils # Man 14.2 H Lymphocytes # (Manual) Monocytes # (Manual) PT INR APTT D-Dimer POC ABG pH 7.251 L ABG pH POC ABG pO2 156 H ABG pO2 ABG HCO3 ABG O2 Saturation ABG Base Excess ABG Hemoglobin VBG pH Oxyhemoglobin Sodium Potassium Chloride Carbon Dioxide BUN Creatinine Glucose POC Glucose Lactic Acid Calcium Phosphorus Magnesium Iron TIBC Direct Bilirubin AST ALT Alkaline Phosphatase Total Creatine Kinase CK-MB (CK-2) C-Reactive Protein Total Protein Albumin Vitamin B12 Salicylates Acetaminophen Miscellaneous Test Crossmatch See Detail 03/30/19 03/30/19 03/30/19 05:26 05:26 10:38 WBC RBC Hgb Hct MCV MCH MCHC RDW Plt Count [place] % (Auto) Lymph # Seg Neuts % (Manual) Lymphocytes % (Manual) Nucleated RBC % Seg Neutrophils # Man Lymphocytes # (Manual) Monocytes # (Manual) PT INR APTT D-Dimer POC ABG pH ABG pH POC ABG pO2 ABG pO2 ABG HCO3 ABG O2 Saturation ABG Base Excess ABG Hemoglobin VBG pH Oxyhemoglobin Sodium 158 H D Potassium 3.5 L Chloride 109.3 H Carbon Dioxide 19 L D BUN 40 H Creatinine 1.5 H Glucose 760 H* POC Glucose 380 H Lactic Acid Calcium 7.3 L Phosphorus Magnesium 2.60 H Iron TIBC Direct Bilirubin AST 12341 H ALT 2156 H Alkaline Phosphatase 271 H Total Creatine Kinase 2465 H CK-MB (CK-2) 52.7 H C-Reactive Protein Total Protein 4.5 L Albumin 2.4 L Vitamin B12 Salicylates Acetaminophen Miscellaneous Test Crossmatch 03/30/19 03/30/19 03/30/19 11:08 12:25 12:57 WBC RBC Hgb Hct MCV MCH MCHC RDW Plt Count [place] % (Auto) Lymph # Seg Neuts % (Manual) Lymphocytes % (Manual) Nucleated RBC % Seg Neutrophils # Man Lymphocytes # (Manual) Monocytes # (Manual) PT INR APTT D-Dimer POC ABG pH ABG pH POC ABG pO2 ABG pO2 ABG HCO3 ABG O2 Saturation ABG Base Excess ABG Hemoglobin VBG pH Oxyhemoglobin Sodium 156 H Potassium 3.2 L Chloride 116.4 H Carbon Dioxide 21 L BUN 37 H Creatinine Glucose 162 H POC Glucose 263 H 196 H Lactic Acid Calcium 7.2 L Phosphorus Magnesium Iron TIBC Direct Bilirubin AST ALT Alkaline Phosphatase Total Creatine Kinase CK-MB (CK-2) C-Reactive Protein Total Protein Albumin Vitamin B12 Salicylates Acetaminophen Miscellaneous Test Crossmatch 03/30/19 03/30/19 03/30/19 12:57 12:57 12:57 WBC RBC Hgb Hct MCV MCH MCHC RDW Plt Count [place] % (Auto) Lymph # Seg Neuts % (Manual) Lymphocytes % (Manual) Nucleated RBC % Seg Neutrophils # Man Lymphocytes # (Manual) Monocytes # (Manual) PT 21.0 H INR 1.86 H APTT D-Dimer POC ABG pH ABG pH POC ABG pO2 ABG pO2 ABG HCO3 ABG O2 Saturation ABG Base Excess ABG Hemoglobin VBG pH Oxyhemoglobin Sodium Potassium Chloride Carbon Dioxide BUN Creatinine Glucose POC Glucose Lactic Acid 9.00 H* Calcium Phosphorus Magnesium Iron TIBC Direct Bilirubin AST ALT Alkaline Phosphatase Total Creatine Kinase CK-MB (CK-2) C-Reactive Protein 2.40 H Total Protein Albumin Vitamin B12 Salicylates Acetaminophen Miscellaneous Test Crossmatch 03/30/19 03/30/19 03/30/19 13:23 14:00 14:47 WBC RBC Hgb Hct MCV MCH MCHC RDW Plt Count [place] % (Auto) Lymph # Seg Neuts % (Manual) Lymphocytes % (Manual) Nucleated RBC % Seg Neutrophils # Man Lymphocytes # (Manual) Monocytes # (Manual) PT INR APTT D-Dimer POC ABG pH ABG pH POC ABG pO2 ABG pO2 ABG HCO3 ABG O2 Saturation ABG Base Excess ABG Hemoglobin VBG pH Oxyhemoglobin Sodium Potassium Chloride Carbon Dioxide BUN Creatinine Glucose POC Glucose 176 H 245 H Lactic Acid Calcium Phosphorus Magnesium Iron TIBC Direct Bilirubin AST ALT Alkaline Phosphatase Total Creatine Kinase CK-MB (CK-2) C-Reactive Protein Total Protein Albumin Vitamin B12 Salicylates Acetaminophen Miscellaneous Test Flexitest 1 H Crossmatch 03/30/19 03/30/19 03/30/19 16:11 17:11 17:46 WBC RBC Hgb Hct MCV MCH MCHC RDW Plt Count [place] % (Auto) Lymph # Seg Neuts % (Manual) Lymphocytes % (Manual) Nucleated RBC % Seg Neutrophils # Man Lymphocytes # (Manual) Monocytes # (Manual) PT INR APTT D-Dimer POC ABG pH ABG pH POC ABG pO2 ABG pO2 ABG HCO3 ABG O2 Saturation ABG Base Excess ABG Hemoglobin VBG pH Oxyhemoglobin Sodium Potassium Chloride Carbon Dioxide BUN Creatinine Glucose POC Glucose 181 H 167 H 125 H Lactic Acid Calcium Phosphorus Magnesium Iron TIBC Direct Bilirubin AST ALT Alkaline Phosphatase Total Creatine Kinase CK-MB (CK-2) C-Reactive Protein Total Protein Albumin Vitamin B12 Salicylates Acetaminophen Miscellaneous Test Crossmatch 03/30/19 03/30/19 03/30/19 18:59 21:31 22:19 WBC RBC Hgb Hct MCV MCH MCHC RDW Plt Count [place] % (Auto) Lymph # Seg Neuts % (Manual) Lymphocytes % (Manual) Nucleated RBC % Seg Neutrophils # Man Lymphocytes # (Manual) Monocytes # (Manual) PT INR APTT D-Dimer POC ABG pH ABG pH POC ABG pO2 ABG pO2 ABG HCO3 ABG O2 Saturation ABG Base Excess ABG Hemoglobin VBG pH Oxyhemoglobin Sodium Potassium Chloride Carbon Dioxide BUN Creatinine Glucose POC Glucose 140 H 166 H 115 H Lactic Acid Calcium Phosphorus Magnesium Iron TIBC Direct Bilirubin AST ALT Alkaline Phosphatase Total Creatine Kinase CK-MB (CK-2) C-Reactive Protein Total Protein Albumin Vitamin B12 Salicylates Acetaminophen Miscellaneous Test Crossmatch 03/30/19 03/30/19 03/30/19 23:13 Unknown Unknown WBC RBC Hgb Hct MCV MCH MCHC RDW Plt Count [place] % (Auto) Lymph # Seg Neuts % (Manual) Lymphocytes % (Manual) Nucleated RBC % Seg Neutrophils # Man Lymphocytes # (Manual) Monocytes # (Manual) PT INR APTT D-Dimer POC ABG pH ABG pH POC ABG pO2 ABG pO2 47.8 L ABG HCO3 18.8 L ABG O2 Saturation 83.8 L ABG Base Excess -5.4 L ABG Hemoglobin 6.8 L VBG pH Oxyhemoglobin 81.8 L Sodium 157 H Potassium 3.3 L Chloride 117.9 H Carbon Dioxide 20 L BUN 36 H Creatinine Glucose 150 H POC Glucose 112 H Lactic Acid Calcium 7.2 L Phosphorus Magnesium Iron TIBC Direct Bilirubin AST ALT Alkaline Phosphatase Total Creatine Kinase CK-MB (CK-2) C-Reactive Protein Total Protein Albumin Vitamin B12 Salicylates Acetaminophen Miscellaneous Test Crossmatch 03/30/19 03/30/19 03/31/19 Unknown Unknown 00:03 WBC RBC Hgb Hct MCV MCH MCHC RDW Plt Count [place] % (Auto) Lymph # Seg Neuts % (Manual) Lymphocytes % (Manual) Nucleated RBC % Seg Neutrophils # Man Lymphocytes # (Manual) Monocytes # (Manual) PT INR APTT D-Dimer POC ABG pH ABG pH POC ABG pO2 ABG pO2 ABG HCO3 ABG O2 Saturation ABG Base Excess ABG Hemoglobin VBG pH Oxyhemoglobin Sodium Potassium Chloride Carbon Dioxide BUN Creatinine Glucose POC Glucose 188 H Lactic Acid Calcium Phosphorus Magnesium Iron TIBC Direct Bilirubin AST ALT Alkaline Phosphatase Total Creatine Kinase CK-MB (CK-2) C-Reactive Protein Total Protein Albumin Vitamin B12 Salicylates 0.8 L Acetaminophen < 5.0 L Miscellaneous Test Crossmatch 03/31/19 03/31/19 03/31/19 01:18 03:07 03:50 WBC RBC Hgb Hct MCV MCH MCHC RDW Plt Count [place] % (Auto) Lymph # Seg Neuts % (Manual) Lymphocytes % (Manual) Nucleated RBC % Seg Neutrophils # Man Lymphocytes # (Manual) Monocytes # (Manual) PT INR APTT D-Dimer POC ABG pH ABG pH 7.525 H POC ABG pO2 ABG pO2 178.0 H ABG HCO3 19.5 L ABG O2 Saturation 99.2 H ABG Base Excess -3.1 L ABG Hemoglobin 5.8 L VBG pH Oxyhemoglobin Sodium Potassium Chloride Carbon Dioxide BUN Creatinine Glucose POC Glucose 114 H 107 H Lactic Acid Calcium Phosphorus Magnesium Iron TIBC Direct Bilirubin AST ALT Alkaline Phosphatase Total Creatine Kinase CK-MB (CK-2) C-Reactive Protein Total Protein Albumin Vitamin B12 Salicylates Acetaminophen Miscellaneous Test Crossmatch 03/31/19 03/31/19 03/31/19 03:51 03:51 04:05 WBC RBC 1.89 L Hgb 6.1 L Hct 18.2 L* MCV MCH MCHC RDW 17.7 H Plt Count 89 L [place] % (Auto) Lymph # Seg Neuts % (Manual) 86.0 H Lymphocytes % (Manual) 10.0 L Nucleated RBC % 1.0 H Seg Neutrophils # Man Lymphocytes # (Manual) 0.7 L Monocytes # (Manual) PT INR APTT D-Dimer POC ABG pH ABG pH POC ABG pO2 ABG pO2 ABG HCO3 ABG O2 Saturation ABG Base Excess ABG Hemoglobin VBG pH Oxyhemoglobin Sodium 151 H Potassium 3.2 L Chloride 119.4 H Carbon Dioxide 17 L BUN 35 H Creatinine Glucose 139 H POC Glucose 153 H Lactic Acid Calcium 7.1 L Phosphorus Magnesium Iron TIBC Direct Bilirubin AST ALT Alkaline Phosphatase Total Creatine Kinase CK-MB (CK-2) C-Reactive Protein Total Protein Albumin Vitamin B12 Salicylates Acetaminophen Miscellaneous Test Crossmatch 03/31/19 03/31/19 03/31/19 05:05 05:35 06:23 WBC RBC Hgb Hct MCV MCH MCHC RDW Plt Count [place] % (Auto) Lymph # Seg Neuts % (Manual) Lymphocytes % (Manual) Nucleated RBC % Seg Neutrophils # Man Lymphocytes # (Manual) Monocytes # (Manual) PT INR APTT D-Dimer POC ABG pH ABG pH POC ABG pO2 ABG pO2 ABG HCO3 ABG O2 Saturation ABG Base Excess ABG Hemoglobin VBG pH Oxyhemoglobin Sodium Potassium Chloride Carbon Dioxide BUN Creatinine Glucose POC Glucose 176 H 133 H Lactic Acid 3.20 H* Calcium Phosphorus Magnesium Iron TIBC Direct Bilirubin AST ALT Alkaline Phosphatase Total Creatine Kinase CK-MB (CK-2) C-Reactive Protein Total Protein Albumin Vitamin B12 Salicylates Acetaminophen Miscellaneous Test Crossmatch 03/31/19 03/31/19 03/31/19 07:50 07:51 08:20 WBC RBC Hgb Hct MCV MCH MCHC RDW Plt Count [place] % (Auto) Lymph # Seg Neuts % (Manual) Lymphocytes % (Manual) Nucleated RBC % Seg Neutrophils # Man Lymphocytes # (Manual) Monocytes # (Manual) PT INR APTT D-Dimer POC ABG pH ABG pH POC ABG pO2 ABG pO2 ABG HCO3 ABG O2 Saturation ABG Base Excess ABG Hemoglobin VBG pH Oxyhemoglobin Sodium Potassium Chloride Carbon Dioxide BUN Creatinine Glucose POC Glucose 135 H Lactic Acid 3.30 H* Calcium Phosphorus Magnesium Iron 26 L TIBC 193 L Direct Bilirubin AST ALT Alkaline Phosphatase Total Creatine Kinase CK-MB (CK-2) C-Reactive Protein Total Protein Albumin Vitamin B12 Salicylates Acetaminophen Miscellaneous Test Crossmatch 03/31/19 03/31/19 03/31/19 08:20 08:20 09:06 WBC RBC Hgb Hct MCV MCH MCHC RDW Plt Count [place] % (Auto) Lymph # Seg Neuts % (Manual) Lymphocytes % (Manual) Nucleated RBC % Seg Neutrophils # Man Lymphocytes # (Manual) Monocytes # (Manual) PT INR APTT D-Dimer POC ABG pH ABG pH POC ABG pO2 ABG pO2 ABG HCO3 ABG O2 Saturation ABG Base Excess ABG Hemoglobin VBG pH Oxyhemoglobin Sodium 153 H Potassium 3.0 L Chloride 118.9 H Carbon Dioxide 18 L BUN 37 H Creatinine Glucose 132 H POC Glucose 145 H Lactic Acid Calcium 7.1 L Phosphorus Magnesium Iron TIBC Direct Bilirubin AST ALT Alkaline Phosphatase Total Creatine Kinase CK-MB (CK-2) C-Reactive Protein Total Protein Albumin Vitamin B12 > 2000 H Salicylates Acetaminophen Miscellaneous Test Crossmatch 03/31/19 03/31/19 03/31/19 10:47 11:49 13:04 WBC RBC Hgb Hct MCV MCH MCHC RDW Plt Count [place] % (Auto) Lymph # Seg Neuts % (Manual) Lymphocytes % (Manual) Nucleated RBC % Seg Neutrophils # Man Lymphocytes # (Manual) Monocytes # (Manual) PT INR APTT D-Dimer POC ABG pH ABG pH POC ABG pO2 ABG pO2 ABG HCO3 ABG O2 Saturation ABG Base Excess ABG Hemoglobin VBG pH Oxyhemoglobin Sodium Potassium Chloride Carbon Dioxide BUN Creatinine Glucose POC Glucose 153 H 174 H 214 H Lactic Acid Calcium Phosphorus Magnesium Iron TIBC Direct Bilirubin AST ALT Alkaline Phosphatase Total Creatine Kinase CK-MB (CK-2) C-Reactive Protein Total Protein Albumin Vitamin B12 Salicylates Acetaminophen Miscellaneous Test Crossmatch 03/31/19 03/31/19 03/31/19 13:42 15:08 16:08 WBC RBC Hgb Hct MCV MCH MCHC RDW Plt Count [place] % (Auto) Lymph # Seg Neuts % (Manual) Lymphocytes % (Manual) Nucleated RBC % Seg Neutrophils # Man Lymphocytes # (Manual) Monocytes # (Manual) PT INR APTT D-Dimer POC ABG pH ABG pH POC ABG pO2 ABG pO2 ABG HCO3 ABG O2 Saturation ABG Base Excess ABG Hemoglobin VBG pH Oxyhemoglobin Sodium Potassium Chloride Carbon Dioxide BUN Creatinine Glucose POC Glucose 186 H 136 H 150 H Lactic Acid Calcium Phosphorus Magnesium Iron TIBC Direct Bilirubin AST ALT Alkaline Phosphatase Total Creatine Kinase CK-MB (CK-2) C-Reactive Protein Total Protein Albumin Vitamin B12 Salicylates Acetaminophen Miscellaneous Test Crossmatch 03/31/19 03/31/19 03/31/19 17:11 17:30 17:30 WBC RBC Hgb 7.7 L Hct 23.0 L MCV MCH MCHC RDW Plt Count [place] % (Auto) Lymph # Seg Neuts % (Manual) Lymphocytes % (Manual) Nucleated RBC % Seg Neutrophils # Man Lymphocytes # (Manual) Monocytes # (Manual) PT INR APTT D-Dimer POC ABG pH ABG pH POC ABG pO2 ABG pO2 ABG HCO3 ABG O2 Saturation ABG Base Excess ABG Hemoglobin VBG pH Oxyhemoglobin Sodium 153 H Potassium 3.5 L Chloride 119.3 H Carbon Dioxide 20 L BUN 34 H Creatinine Glucose 162 H POC Glucose 140 H Lactic Acid Calcium 7.6 L Phosphorus Magnesium Iron TIBC Direct Bilirubin AST ALT Alkaline Phosphatase Total Creatine Kinase CK-MB (CK-2) C-Reactive Protein Total Protein Albumin Vitamin B12 Salicylates Acetaminophen Miscellaneous Test Crossmatch 03/31/19 03/31/19 03/31/19 17:59 18:58 20:28 WBC RBC Hgb Hct MCV MCH MCHC RDW Plt Count [place] % (Auto) Lymph # Seg Neuts % (Manual) Lymphocytes % (Manual) Nucleated RBC % Seg Neutrophils # Man Lymphocytes # (Manual) Monocytes # (Manual) PT INR APTT D-Dimer POC ABG pH ABG pH POC ABG pO2 ABG pO2 ABG HCO3 ABG O2 Saturation ABG Base Excess ABG Hemoglobin VBG pH Oxyhemoglobin Sodium Potassium Chloride Carbon Dioxide BUN Creatinine Glucose POC Glucose 156 H 152 H 138 H Lactic Acid Calcium Phosphorus Magnesium Iron TIBC Direct Bilirubin AST ALT Alkaline Phosphatase Total Creatine Kinase CK-MB (CK-2) C-Reactive Protein Total Protein Albumin Vitamin B12 Salicylates Acetaminophen Miscellaneous Test Crossmatch 03/31/19 03/31/19 03/31/19 21:09 22:15 23:10 WBC RBC Hgb Hct MCV MCH MCHC RDW Plt Count [place] % (Auto) Lymph # Seg Neuts % (Manual) Lymphocytes % (Manual) Nucleated RBC % Seg Neutrophils # Man Lymphocytes # (Manual) Monocytes # (Manual) PT INR APTT D-Dimer POC ABG pH ABG pH POC ABG pO2 ABG pO2 ABG HCO3 ABG O2 Saturation ABG Base Excess ABG Hemoglobin VBG pH Oxyhemoglobin Sodium Potassium Chloride Carbon Dioxide BUN Creatinine Glucose POC Glucose 136 H 137 H 148 H Lactic Acid Calcium Phosphorus Magnesium Iron TIBC Direct Bilirubin AST ALT Alkaline Phosphatase Total Creatine Kinase CK-MB (CK-2) C-Reactive Protein Total Protein Albumin Vitamin B12 Salicylates Acetaminophen Miscellaneous Test Crossmatch 04/01/19 04/01/19 04/01/19 00:05 01:17 02:11 WBC RBC Hgb Hct MCV MCH MCHC RDW Plt Count [place] % (Auto) Lymph # Seg Neuts % (Manual) Lymphocytes % (Manual) Nucleated RBC % Seg Neutrophils # Man Lymphocytes # (Manual) Monocytes # (Manual) PT INR APTT D-Dimer POC ABG pH ABG pH POC ABG pO2 ABG pO2 ABG HCO3 ABG O2 Saturation ABG Base Excess ABG Hemoglobin VBG pH Oxyhemoglobin Sodium Potassium Chloride Carbon Dioxide BUN Creatinine Glucose POC Glucose 143 H 151 H 155 H Lactic Acid Calcium Phosphorus Magnesium Iron TIBC Direct Bilirubin AST ALT Alkaline Phosphatase Total Creatine Kinase CK-MB (CK-2) C-Reactive Protein Total Protein Albumin Vitamin B12 Salicylates Acetaminophen Miscellaneous Test Crossmatch 04/01/19 04/01/19 04/01/19 03:12 04:03 04:16 WBC RBC Hgb Hct MCV MCH MCHC RDW Plt Count [place] % (Auto) Lymph # Seg Neuts % (Manual) Lymphocytes % (Manual) Nucleated RBC % Seg Neutrophils # Man Lymphocytes # (Manual) Monocytes # (Manual) PT INR APTT D-Dimer POC ABG pH ABG pH POC ABG pO2 ABG pO2 ABG HCO3 ABG O2 Saturation ABG Base Excess ABG Hemoglobin VBG pH Oxyhemoglobin Sodium Potassium Chloride Carbon Dioxide BUN Creatinine Glucose POC Glucose 140 H 143 H 142 H Lactic Acid Calcium Phosphorus Magnesium Iron TIBC Direct Bilirubin AST ALT Alkaline Phosphatase Total Creatine Kinase CK-MB (CK-2) C-Reactive Protein Total Protein Albumin Vitamin B12 Salicylates Acetaminophen Miscellaneous Test Crossmatch 04/01/19 04/01/19 04/01/19 05:01 05:01 05:08 WBC RBC 2.05 L Hgb 6.8 L Hct 20.5 L MCV 100 H MCH 33 H MCHC RDW 17.7 H Plt Count 53 L [place] % (Auto) Lymph # Seg Neuts % (Manual) 71.0 H Lymphocytes % (Manual) Nucleated RBC % Seg Neutrophils # Man Lymphocytes # (Manual) Monocytes # (Manual) PT INR APTT D-Dimer POC ABG pH ABG pH POC ABG pO2 ABG pO2 ABG HCO3 ABG O2 Saturation ABG Base Excess ABG Hemoglobin VBG pH Oxyhemoglobin Sodium Potassium Chloride Carbon Dioxide BUN Creatinine Glucose POC Glucose 119 H Lactic Acid Calcium Phosphorus Magnesium Iron TIBC Direct Bilirubin 0.3 H AST 4601 H ALT 1542 H Alkaline Phosphatase 185 H Total Creatine Kinase CK-MB (CK-2) C-Reactive Protein Total Protein 3.8 L Albumin 1.6 L Vitamin B12 Salicylates Acetaminophen Miscellaneous Test Crossmatch 04/01/19 04/01/19 04/01/19 05:23 06:37 08:15 WBC RBC Hgb Hct MCV MCH MCHC RDW Plt Count [place] % (Auto) Lymph # Seg Neuts % (Manual) Lymphocytes % (Manual) Nucleated RBC % Seg Neutrophils # Man Lymphocytes # (Manual) Monocytes # (Manual) PT INR APTT D-Dimer POC ABG pH ABG pH POC ABG pO2 ABG pO2 ABG HCO3 ABG O2 Saturation ABG Base Excess ABG Hemoglobin VBG pH Oxyhemoglobin Sodium Potassium Chloride Carbon Dioxide BUN Creatinine Glucose POC Glucose 115 H 124 H 138 H Lactic Acid Calcium Phosphorus Magnesium Iron TIBC Direct Bilirubin AST ALT Alkaline Phosphatase Total Creatine Kinase CK-MB (CK-2) C-Reactive Protein Total Protein Albumin Vitamin B12 Salicylates Acetaminophen Miscellaneous Test Crossmatch 04/01/19 04/01/19 04/01/19 09:50 10:10 10:31 WBC RBC Hgb 6.5 L Hct 19.2 L* MCV MCH MCHC RDW Plt Count [place] % (Auto) Lymph # Seg Neuts % (Manual) Lymphocytes % (Manual) Nucleated RBC % Seg Neutrophils # Man Lymphocytes # (Manual) Monocytes # (Manual) PT INR APTT D-Dimer POC ABG pH ABG pH POC ABG pO2 ABG pO2 ABG HCO3 ABG O2 Saturation ABG Base Excess ABG Hemoglobin VBG pH Oxyhemoglobin Sodium 149 H Potassium 3.5 L Chloride 119.9 H Carbon Dioxide 21 L BUN 33 H Creatinine 0.5 L Glucose 142 H POC Glucose 185 H Lactic Acid Calcium 7.3 L Phosphorus Magnesium Iron TIBC Direct Bilirubin AST 3686 H ALT 1440 H Alkaline Phosphatase 185 H Total Creatine Kinase CK-MB (CK-2) C-Reactive Protein Total Protein 3.7 L Albumin 1.8 L Vitamin B12 Salicylates Acetaminophen Miscellaneous Test Crossmatch 04/01/19 04/01/19 04/01/19 11:35 13:05 14:35 WBC RBC Hgb Hct MCV MCH MCHC RDW Plt Count [place] % (Auto) Lymph # Seg Neuts % (Manual) Lymphocytes % (Manual) Nucleated RBC % Seg Neutrophils # Man Lymphocytes # (Manual) Monocytes # (Manual) PT INR APTT D-Dimer POC ABG pH ABG pH POC ABG pO2 ABG pO2 ABG HCO3 ABG O2 Saturation ABG Base Excess ABG Hemoglobin VBG pH Oxyhemoglobin Sodium Potassium Chloride Carbon Dioxide BUN Creatinine Glucose POC Glucose 201 H 169 H 134 H Lactic Acid Calcium Phosphorus Magnesium Iron TIBC Direct Bilirubin AST ALT Alkaline Phosphatase Total Creatine Kinase CK-MB (CK-2) C-Reactive Protein Total Protein Albumin Vitamin B12 Salicylates Acetaminophen Miscellaneous Test Crossmatch 04/01/19 04/01/19 04/01/19 17:13 17:14 18:30 WBC RBC Hgb Hct MCV MCH MCHC RDW Plt Count [place] % (Auto) Lymph # Seg Neuts % (Manual) Lymphocytes % (Manual) Nucleated RBC % Seg Neutrophils # Man Lymphocytes # (Manual) Monocytes # (Manual) PT INR APTT D-Dimer 5203.68 H POC ABG pH ABG pH POC ABG pO2 ABG pO2 ABG HCO3 ABG O2 Saturation ABG Base Excess ABG Hemoglobin VBG pH Oxyhemoglobin Sodium Potassium Chloride Carbon Dioxide BUN Creatinine Glucose POC Glucose 69 L 128 H Lactic Acid Calcium Phosphorus Magnesium Iron TIBC Direct Bilirubin AST ALT Alkaline Phosphatase Total Creatine Kinase CK-MB (CK-2) C-Reactive Protein Total Protein Albumin Vitamin B12 Salicylates Acetaminophen Miscellaneous Test Crossmatch 04/01/19 04/01/19 04/02/19 22:50 Unknown 03:40 WBC RBC Hgb Hct MCV MCH MCHC RDW Plt Count [place] % (Auto) Lymph # Seg Neuts % (Manual) Lymphocytes % (Manual) Nucleated RBC % Seg Neutrophils # Man Lymphocytes # (Manual) Monocytes # (Manual) PT INR APTT D-Dimer POC ABG pH ABG pH POC ABG pO2 ABG pO2 78.3 L 142.8 H ABG HCO3 15.5 L ABG O2 Saturation ABG Base Excess -3.5 L -8.2 L ABG Hemoglobin 6.8 L 8.2 L VBG pH Oxyhemoglobin 94.3 L Sodium Potassium Chloride Carbon Dioxide BUN Creatinine Glucose POC Glucose 342 H Lactic Acid Calcium Phosphorus Magnesium Iron TIBC Direct Bilirubin AST ALT Alkaline Phosphatase Total Creatine Kinase CK-MB (CK-2) C-Reactive Protein Total Protein Albumin Vitamin B12 Salicylates Acetaminophen Miscellaneous Test Crossmatch 04/02/19 04/02/19 04/02/19 03:49 06:50 07:48 WBC RBC 2.65 L Hgb 8.6 L Hct 25.1 L MCV MCH MCHC RDW 17.6 H Plt Count 48 L [place] % (Auto) Lymph # Seg Neuts % (Manual) Lymphocytes % (Manual) Nucleated RBC % Seg Neutrophils # Man Lymphocytes # (Manual) Monocytes # (Manual) PT INR APTT D-Dimer POC ABG pH ABG pH POC ABG pO2 ABG pO2 ABG HCO3 ABG O2 Saturation ABG Base Excess ABG Hemoglobin VBG pH Oxyhemoglobin Sodium Potassium Chloride Carbon Dioxide BUN Creatinine Glucose POC Glucose 247 H 200 H Lactic Acid Calcium Phosphorus Magnesium Iron TIBC Direct Bilirubin AST ALT Alkaline Phosphatase Total Creatine Kinase CK-MB (CK-2) C-Reactive Protein Total Protein Albumin Vitamin B12 Salicylates Acetaminophen Miscellaneous Test Crossmatch 04/02/19 04/02/19 04/02/19 07:48 11:18 14:07 WBC RBC Hgb Hct MCV MCH MCHC RDW Plt Count [place] % (Auto) Lymph # Seg Neuts % (Manual) Lymphocytes % (Manual) Nucleated RBC % Seg Neutrophils # Man Lymphocytes # (Manual) Monocytes # (Manual) PT INR APTT D-Dimer POC ABG pH ABG pH POC ABG pO2 ABG pO2 ABG HCO3 ABG O2 Saturation ABG Base Excess ABG Hemoglobin VBG pH Oxyhemoglobin Sodium Potassium 3.5 L Chloride 115.7 H Carbon Dioxide 19 L BUN 29 H Creatinine 0.5 L Glucose 159 H POC Glucose 154 H 149 H Lactic Acid Calcium 7.5 L Phosphorus Magnesium Iron TIBC Direct Bilirubin AST 1418 H ALT 1134 H Alkaline Phosphatase 242 H Total Creatine Kinase CK-MB (CK-2) C-Reactive Protein Total Protein 4.2 L Albumin 2.1 L Vitamin B12 Salicylates Acetaminophen Miscellaneous Test Crossmatch 04/02/19 04/02/19 04/02/19 18:09 19:46 23:05 WBC RBC Hgb Hct MCV MCH MCHC RDW Plt Count [place] % (Auto) Lymph # Seg Neuts % (Manual) Lymphocytes % (Manual) Nucleated RBC % Seg Neutrophils # Man Lymphocytes # (Manual) Monocytes # (Manual) PT INR APTT D-Dimer POC ABG pH ABG pH POC ABG pO2 ABG pO2 ABG HCO3 ABG O2 Saturation ABG Base Excess ABG Hemoglobin VBG pH Oxyhemoglobin Sodium Potassium Chloride Carbon Dioxide BUN Creatinine Glucose POC Glucose 188 H 209 H 247 H Lactic Acid Calcium Phosphorus Magnesium Iron TIBC Direct Bilirubin AST ALT Alkaline Phosphatase Total Creatine Kinase CK-MB (CK-2) C-Reactive Protein Total Protein Albumin Vitamin B12 Salicylates Acetaminophen Miscellaneous Test Crossmatch 04/03/19 04/03/19 04/03/19 02:58 03:40 03:40 WBC RBC 2.87 L Hgb 9.3 L Hct 27.0 L MCV MCH MCHC RDW 17.2 H Plt Count 65 L [place] % (Auto) 9.8 H Lymph # 1.1 L Seg Neuts % (Manual) Lymphocytes % (Manual) Nucleated RBC % Seg Neutrophils # Man Lymphocytes # (Manual) Monocytes # (Manual) PT INR APTT D-Dimer POC ABG pH ABG pH POC ABG pO2 ABG pO2 ABG HCO3 ABG O2 Saturation ABG Base Excess ABG Hemoglobin VBG pH Oxyhemoglobin Sodium 147 H Potassium 3.5 L Chloride 116.7 H Carbon Dioxide 18 L BUN Creatinine 0.4 L Glucose 150 H POC Glucose 166 H Lactic Acid Calcium 8.1 L Phosphorus 2.20 L Magnesium Iron TIBC Direct Bilirubin AST 594 H ALT 861 H Alkaline Phosphatase 299 H Total Creatine Kinase CK-MB (CK-2) C-Reactive Protein Total Protein 4.4 L Albumin 2.1 L Vitamin B12 Salicylates Acetaminophen Miscellaneous Test Crossmatch 04/03/19 04/03/19 04/03/19 05:35 07:02 08:23 WBC RBC Hgb Hct MCV MCH MCHC RDW Plt Count [place] % (Auto) Lymph # Seg Neuts % (Manual) Lymphocytes % (Manual) Nucleated RBC % Seg Neutrophils # Man Lymphocytes # (Manual) Monocytes # (Manual) PT INR APTT D-Dimer POC ABG pH ABG pH POC ABG pO2 ABG pO2 97.7 H ABG HCO3 19.3 L ABG O2 Saturation ABG Base Excess -5.0 L ABG Hemoglobin 8.0 L VBG pH Oxyhemoglobin Sodium Potassium Chloride Carbon Dioxide BUN Creatinine Glucose POC Glucose 135 H 132 H Lactic Acid Calcium Phosphorus Magnesium Iron TIBC Direct Bilirubin AST ALT Alkaline Phosphatase Total Creatine Kinase CK-MB (CK-2) C-Reactive Protein Total Protein Albumin Vitamin B12 Salicylates Acetaminophen Miscellaneous Test Crossmatch 04/03/19 04/03/19 04/03/19 11:58 15:11 17:53 WBC RBC Hgb Hct MCV MCH MCHC RDW Plt Count [place] % (Auto) Lymph # Seg Neuts % (Manual) Lymphocytes % (Manual) Nucleated RBC % Seg Neutrophils # Man Lymphocytes # (Manual) Monocytes # (Manual) PT INR APTT D-Dimer POC ABG pH ABG pH POC ABG pO2 ABG pO2 ABG HCO3 ABG O2 Saturation ABG Base Excess ABG Hemoglobin VBG pH Oxyhemoglobin Sodium Potassium Chloride Carbon Dioxide BUN Creatinine Glucose POC Glucose 179 H 213 H 223 H Lactic Acid Calcium Phosphorus Magnesium Iron TIBC Direct Bilirubin AST ALT Alkaline Phosphatase Total Creatine Kinase CK-MB (CK-2) C-Reactive Protein Total Protein Albumin Vitamin B12 Salicylates Acetaminophen Miscellaneous Test Crossmatch 04/03/19 04/04/19 04/04/19 23:06 02:36 06:41 WBC RBC Hgb Hct MCV MCH MCHC RDW Plt Count [place] % (Auto) Lymph # Seg Neuts % (Manual) Lymphocytes % (Manual) Nucleated RBC % Seg Neutrophils # Man Lymphocytes # (Manual) Monocytes # (Manual) PT INR APTT D-Dimer POC ABG pH ABG pH POC ABG pO2 ABG pO2 ABG HCO3 ABG O2 Saturation ABG Base Excess ABG Hemoglobin VBG pH Oxyhemoglobin Sodium Potassium Chloride Carbon Dioxide BUN Creatinine Glucose POC Glucose 189 H 157 H 131 H Lactic Acid Calcium Phosphorus Magnesium Iron TIBC Direct Bilirubin AST ALT Alkaline Phosphatase Total Creatine Kinase CK-MB (CK-2) C-Reactive Protein Total Protein Albumin Vitamin B12 Salicylates Acetaminophen Miscellaneous Test Crossmatch Chest x-ray: image reviewed Allied health notes reviewed: nursing
[2019-04-04] MEDS ORDERED: PERMETHRIN 5% TP ONE (15:00)
--- NOTE | 2019-04-04 15:30 | Progress Note ---
Assessment and Plan Cultures: 03/29 BCx: pend 03/29 sputum Cx: C albicans A/P: 28 yo F PMHx T1DM admitted after receiving intubation and compressions due to non-responsiveness likely secondary to DKA 1. SIRS - likely secondary to DKA/resuscitation, possible infective component of aspiration PNA vs penumonitis. Leukocytosis improving. Pressor requirements impr oving. CXR improving. 2. Aspiration pneumonia vs pneumonitis - Procal greatly elevated. Continue antibiotics. Can treat for 7 days. Jenn in sputum culture not a pathogen of the respiratory tract. 3. Acute liver failure - Possibly secondary to DKA, but liver enzymes vastly and quickly increased. Viral etiologies negative 4. DKA - numerous metabolic derangements, per primary/ICU team 5. T1DM Recs: - continue cefepime renally dosed at 2g q8h - continue metronidazole 500mg q8h - follow liver function - stop date: 04/06 Thank you for the consult, we will continue to follow. Vlad Carson MD [facility] ([facility]) M: [phone] O: [phone] F: [phone] Subjective Date of service: 04/04/19 Principal diagnosis: Ac Hypoxemic Resp Failure; DKA; Severe sepsis with shock; ANGELICA Interval history: No change today. CXR with improvement Objective - Exam Narrative Exam: Physical Exam: Constitutional: Intubated, sedated Head, Ears, Nose: Normocephalic, atraumatic. External ears, nose normal Eyes: Conjunctivae/corneas clear. No icterus. No ptosis. Neck: Supple, no meningeal signs. Intubated Oral: dentition fair, no thrush Cardiovascular: S1, S2 normal. Respiratory: Good air entry, clear to auscultation bilaterally GI: Soft, non-tender; bowel sounds normal. No peritoneal signs. Musculoskeletal: No pedal edema, no cyanosis. Skin: No rash or abscess Hem/Lymphatic: No palpable cervical or supraclavicular nodes. No lymphangitis Neurological: Intubated, sedated - Constitutional Vitals: Vital Signs Temp Pulse Resp BP Pulse Ox 98.0 F 131 H 15 131/91 98 04/04/19 12:00 04/04/19 14:00 04/04/19 14:00 04/04/19 14:00 04/04/19 13:00 Temperature -Last 24 Hours Temperature 98.0 F Temperature 97.1 F Temperature 97 F Temperature 97.0 F Temperature 98 F Temperature 98.0 F Temperature 98.9 F Temperature 97.9 F - Labs CBC & Chem 7: 04/03/19 03:40 04/03/19 03:40 Labs: Abnormal lab results 03/29/19 04/03/19 04/03/19 Range/Units 19:11 17:53 23:06 POC Glucose > 500 H 223 H 189 H (70-105) 04/04/19 04/04/19 04/04/19 Range/Units 02:36 06:41 11:42 POC Glucose 157 H 131 H 233 H (70-105)
[2019-04-04 15:59] LABS: Heparin-Induced Platelet Antib Negative (Negative); Unfractionated Heparin Negative (Negative)
--- NOTE | 2019-04-04 16:23 | Progress Note ---
Assessment and Plan Patient is a 28-year-old woman with history of diabetes, polysubstance abuse, history of seizures. She presented on 03/29/2019 after having a cardiac arrest. The patient was given CPR and return to spontaneous circulation. According the patient's clinical findings, it is likely that she's had anoxic brain injury. Additionally, the patient has a history of seizures, and was noted to have a seizure-like event during this admission. Plan: 1. Anoxic brain injury: - CT head unremarkable - MRI brain showed cortical ribboning, and evidence of diffuse anoxic brain injury. - Continue supportive care per ICU and primary teams - I discussed at length the patient's mother regarding her prognosis and plan of care. The patient's mother stated that the patient had made clear in the past that she did not want to have a tracheostomy or a PEG tube placed in the future if her chance of recovery was minimal, she has had a PEG tube in the past with previous illnesses. I discussed with the mother regarding prognosis, and that at this time it is uncertain as to the extent of neurologic recovery she will have, and the timeline that that recovery will occur within. I further discussed that the patient currently displays evidence of brainstem reflexes which are intact, and that the patient is therefore not brain . Mother is currently out of state, as she lives in [place], and stated that she would like to explore options of transferring patient back to [facility] to be closer to family. - Recommend risk management/ethics team consult for review of plans of care with family, given patient's previous stated directives. 2. History of seizures: - EEG: generalized slowing with low amplitude. No seizures or epileptiform activity. - Continue keppra 3. Aspiration PNA/Acute liver failure/Sepsis/Shock: - Continue supportive care per ICU/ID/primary teams - Will continue to follow patient. - Thank you for allowing me to take part in the care of this patient. Lorenzo Farley MD Neurology Subjective Date of service: 04/04/19 Principal diagnosis: Ac Hypoxemic Resp Failure; DKA; Severe sepsis with shock; ANGELICA Interval history: No acute events overnight. Objective - Exam Narrative Exam: Patient is intubated, comatose. Pupils are equal, round, sluggishly reactive to light. Corneal reflexes are intact. Cough reflex is intact. Patient withdraws to pain in all extremities. Reflexes 3+ throughout. - Vital Sign Vital Signs - 12hr 04/04/19 04/04/19 04/04/19 05:00 06:00 07:00 Temperature Pulse Rate 99 H 103 H 106 H Respiratory 13 11 L 11 L Rate Blood Pressure 108/74 122/77 113/73 O2 Sat by Pulse 99 100 100 Oximetry 04/04/19 04/04/19 04/04/19 08:00 08:15 09:00 Temperature 97.1 F L Pulse Rate 104 H 107 H 104 H Respiratory 12 14 Rate Blood Pressure 120/75 120/75 118/75 O2 Sat by Pulse 100 Oximetry 04/04/19 04/04/19 04/04/19 10:00 11:00 11:57 Temperature Pulse Rate 121 H 120 H 117 H Respiratory 16 17 13 Rate Blood Pressure 132/91 138/91 138/91 O2 Sat by Pulse 100 99 100 Oximetry 04/04/19 04/04/19 04/04/19 12:00 13:00 14:00 Temperature 98.0 F Pulse Rate 126 H 132 H 131 H Respiratory 14 18 15 Rate Blood Pressure 143/96 140/94 131/91 O2 Sat by Pulse 99 98 Oximetry 04/04/19 04/04/19 04/04/19 15:00 15:27 16:00 Temperature 98.2 F Pulse Rate 137 H 128 H Respiratory 18 15 Rate Blood Pressure 146/82 142/86 O2 Sat by Pulse 98 99 Oximetry - General Apperance Constitutional: uncomfortable - EENT EENT: ATNC, PERRL, mucous membranes moist - Respiratory Respiratory: decreased breath sounds - Cardiovascular Cardiovascular: regular rate, normal S1, normal S2 Extremities: no peripheral edema bilat, no clubbing, cyanosis - Gastrointestinal Gastrointestinal: normoactive bowel sounds, soft, non-tender - Integumentary Integumentary: erythema (noted on upper extremity) - Laboratory Findings CBC and BMP: 04/03/19 03:40 04/03/19 03:40 Abnormal Lab Findings: Abnormal Labs 03/29/19 03/29/19 03/29/19 19:11 19:20 19:20 WBC 26.7 H RBC 2.52 L Hgb 8.1 L Hct MCV 148 H MCH MCHC 22 L RDW 18.5 H Plt Count [place] % (Auto) Lymph # Seg Neuts % (Manual) 82.0 H Lymphocytes % (Manual) 7.0 L Nucleated RBC % Seg Neutrophils # Man 21.9 H Lymphocytes # (Manual) Monocytes # (Manual) 1.9 H PT 21.8 H INR 1.95 H APTT 74.5 H* D-Dimer POC ABG pH ABG pH POC ABG pO2 ABG pO2 ABG HCO3 ABG O2 Saturation ABG Base Excess ABG Hemoglobin VBG pH Oxyhemoglobin Sodium Potassium Chloride Carbon Dioxide BUN Creatinine Glucose POC Glucose > 500 H Lactic Acid Calcium Phosphorus Magnesium Iron TIBC Direct Bilirubin AST ALT Alkaline Phosphatase Total Creatine Kinase CK-MB (CK-2) C-Reactive Protein Total Protein Albumin Vitamin B12 Salicylates Acetaminophen Miscellaneous Test Crossmatch 03/29/19 03/29/19 03/29/19 19:20 19:47 20:59 WBC RBC Hgb Hct MCV MCH MCHC RDW Plt Count [place] % (Auto) Lymph # Seg Neuts % (Manual) Lymphocytes % (Manual) Nucleated RBC % Seg Neutrophils # Man Lymphocytes # (Manual) Monocytes # (Manual) PT INR APTT D-Dimer POC ABG pH 6.892 L ABG pH POC ABG pO2 236 H ABG pO2 ABG HCO3 ABG O2 Saturation ABG Base Excess ABG Hemoglobin VBG pH 6.800 L* Oxyhemoglobin Sodium 118 L* Potassium 9.0 H* Chloride 64.5 L Carbon Dioxide 7 L* BUN 53 H Creatinine 2.1 H Glucose 2196 H* POC Glucose Lactic Acid Calcium 12.4 H* Phosphorus Magnesium Iron TIBC Direct Bilirubin AST 3900 H ALT 1034 H Alkaline Phosphatase 316 H Total Creatine Kinase CK-MB (CK-2) C-Reactive Protein Total Protein 5.1 L Albumin 2.8 L Vitamin B12 Salicylates Acetaminophen Miscellaneous Test Crossmatch 03/29/19 03/29/19 03/29/19 22:45 22:45 22:45 WBC RBC Hgb Hct MCV MCH MCHC RDW Plt Count [place] % (Auto) Lymph # Seg Neuts % (Manual) Lymphocytes % (Manual) Nucleated RBC % Seg Neutrophils # Man Lymphocytes # (Manual) Monocytes # (Manual) PT INR APTT D-Dimer POC ABG pH ABG pH POC ABG pO2 ABG pO2 ABG HCO3 ABG O2 Saturation ABG Base Excess ABG Hemoglobin VBG pH Oxyhemoglobin Sodium 132 L D Potassium 7.0 H* Chloride 84.3 L Carbon Dioxide 3 L* BUN 48 H Creatinine 1.8 H Glucose 1779 H* POC Glucose Lactic Acid Calcium Phosphorus 21.70 H Magnesium 4.70 H Iron TIBC Direct Bilirubin AST ALT Alkaline Phosphatase Total Creatine Kinase 363 H CK-MB (CK-2) C-Reactive Protein Total Protein Albumin Vitamin B12 Salicylates Acetaminophen Miscellaneous Test Crossmatch 03/29/19 03/29/19 03/30/19 Unknown Unknown 00:11 WBC RBC Hgb Hct MCV MCH MCHC RDW Plt Count [place] % (Auto) Lymph # Seg Neuts % (Manual) Lymphocytes % (Manual) Nucleated RBC % Seg Neutrophils # Man Lymphocytes # (Manual) Monocytes # (Manual) PT INR APTT D-Dimer POC ABG pH ABG pH POC ABG pO2 ABG pO2 ABG HCO3 ABG O2 Saturation ABG Base Excess ABG Hemoglobin VBG pH Oxyhemoglobin Sodium 122 L Potassium 7.9 H* 6.4 H* Chloride 75.3 L 89.7 L Carbon Dioxide 3 L* 12 L D BUN 52 H 46 H Creatinine 2.0 H 1.7 H Glucose 2043 H* 1591 H* POC Glucose Lactic Acid Calcium 7.8 L Phosphorus 19.30 H Magnesium 3.90 H Iron TIBC Direct Bilirubin AST ALT Alkaline Phosphatase Total Creatine Kinase CK-MB (CK-2) C-Reactive Protein Total Protein Albumin Vitamin B12 Salicylates Acetaminophen Miscellaneous Test Crossmatch 03/30/19 03/30/19 03/30/19 00:11 02:14 02:14 WBC RBC Hgb Hct MCV MCH MCHC RDW Plt Count [place] % (Auto) Lymph # Seg Neuts % (Manual) Lymphocytes % (Manual) Nucleated RBC % Seg Neutrophils # Man Lymphocytes # (Manual) Monocytes # (Manual) PT INR APTT D-Dimer POC ABG pH ABG pH POC ABG pO2 ABG pO2 ABG HCO3 ABG O2 Saturation ABG Base Excess ABG Hemoglobin VBG pH Oxyhemoglobin Sodium Potassium Chloride Carbon Dioxide 9 L* BUN 45 H Creatinine 1.7 H Glucose 1155 H* POC Glucose Lactic Acid Calcium 7.9 L Phosphorus 10.90 H D 5.30 H D Magnesium 3.10 H 2.90 H Iron TIBC Direct Bilirubin AST ALT Alkaline Phosphatase Total Creatine Kinase CK-MB (CK-2) C-Reactive Protein Total Protein Albumin Vitamin B12 Salicylates Acetaminophen Miscellaneous Test Crossmatch 03/30/19 03/30/19 03/30/19 03:15 03:30 04:23 WBC 18.0 H RBC 2.31 L Hgb 7.3 L Hct 23.8 L D MCV 103 H MCH MCHC RDW 17.1 H Plt Count [place] % (Auto) Lymph # Seg Neuts % (Manual) 79.0 H Lymphocytes % (Manual) Nucleated RBC % Seg Neutrophils # Man 14.2 H Lymphocytes # (Manual) Monocytes # (Manual) PT INR APTT D-Dimer POC ABG pH 7.251 L ABG pH POC ABG pO2 156 H ABG pO2 ABG HCO3 ABG O2 Saturation ABG Base Excess ABG Hemoglobin VBG pH Oxyhemoglobin Sodium Potassium Chloride Carbon Dioxide BUN Creatinine Glucose POC Glucose Lactic Acid Calcium Phosphorus Magnesium Iron TIBC Direct Bilirubin AST ALT Alkaline Phosphatase Total Creatine Kinase CK-MB (CK-2) C-Reactive Protein Total Protein Albumin Vitamin B12 Salicylates Acetaminophen Miscellaneous Test Crossmatch See Detail 03/30/19 03/30/19 03/30/19 05:26 05:26 10:38 WBC RBC Hgb Hct MCV MCH MCHC RDW Plt Count [place] % (Auto) Lymph # Seg Neuts % (Manual) Lymphocytes % (Manual) Nucleated RBC % Seg Neutrophils # Man Lymphocytes # (Manual) Monocytes # (Manual) PT INR APTT D-Dimer POC ABG pH ABG pH POC ABG pO2 ABG pO2 ABG HCO3 ABG O2 Saturation ABG Base Excess ABG Hemoglobin VBG pH Oxyhemoglobin Sodium 158 H D Potassium 3.5 L Chloride 109.3 H Carbon Dioxide 19 L D BUN 40 H Creatinine 1.5 H Glucose 760 H* POC Glucose 380 H Lactic Acid Calcium 7.3 L Phosphorus Magnesium 2.60 H Iron TIBC Direct [place] 29407 H ALT 2156 H Alkaline Phosphatase 271 H Total Creatine Kinase 2465 H CK-MB (CK-2) 52.7 H C-Reactive Protein Total Protein 4.5 L Albumin 2.4 L Vitamin B12 Salicylates Acetaminophen Miscellaneous Test Crossmatch 03/30/19 03/30/19 03/30/19 11:08 12:25 12:57 WBC RBC Hgb Hct MCV MCH MCHC RDW Plt Count [place] % (Auto) Lymph # Seg Neuts % (Manual) Lymphocytes % (Manual) Nucleated RBC % Seg Neutrophils # Man Lymphocytes # (Manual) Monocytes # (Manual) PT INR APTT D-Dimer POC ABG pH ABG pH POC ABG pO2 ABG pO2 ABG HCO3 ABG O2 Saturation ABG Base Excess ABG Hemoglobin VBG pH Oxyhemoglobin Sodium 156 H Potassium 3.2 L Chloride 116.4 H Carbon Dioxide 21 L BUN 37 H Creatinine Glucose 162 H POC Glucose 263 H 196 H Lactic Acid Calcium 7.2 L Phosphorus Magnesium Iron TIBC Direct Bilirubin AST ALT Alkaline Phosphatase Total Creatine Kinase CK-MB (CK-2) C-Reactive Protein Total Protein Albumin Vitamin B12 Salicylates Acetaminophen Miscellaneous Test Crossmatch 03/30/19 03/30/19 03/30/19 12:57 12:57 12:57 WBC RBC Hgb Hct MCV MCH MCHC RDW Plt Count [place] % (Auto) Lymph # Seg Neuts % (Manual) Lymphocytes % (Manual) Nucleated RBC % Seg Neutrophils # Man Lymphocytes # (Manual) Monocytes # (Manual) PT 21.0 H INR 1.86 H APTT D-Dimer POC ABG pH ABG pH POC ABG pO2 ABG pO2 ABG HCO3 ABG O2 Saturation ABG Base Excess ABG Hemoglobin VBG pH Oxyhemoglobin Sodium Potassium Chloride Carbon Dioxide BUN Creatinine Glucose POC Glucose Lactic Acid 9.00 H* Calcium Phosphorus Magnesium Iron TIBC Direct Bilirubin AST ALT Alkaline Phosphatase Total Creatine Kinase CK-MB (CK-2) C-Reactive Protein 2.40 H Total Protein Albumin Vitamin B12 Salicylates Acetaminophen Miscellaneous Test Crossmatch 03/30/19 03/30/19 03/30/19 13:23 14:00 14:47 WBC RBC Hgb Hct MCV MCH MCHC RDW Plt Count [place] % (Auto) Lymph # Seg Neuts % (Manual) Lymphocytes % (Manual) Nucleated RBC % Seg Neutrophils # Man Lymphocytes # (Manual) Monocytes # (Manual) PT INR APTT D-Dimer POC ABG pH ABG pH POC ABG pO2 ABG pO2 ABG HCO3 ABG O2 Saturation ABG Base Excess ABG Hemoglobin VBG pH Oxyhemoglobin Sodium Potassium Chloride Carbon Dioxide BUN Creatinine Glucose POC Glucose 176 H 245 H Lactic Acid Calcium Phosphorus Magnesium Iron TIBC Direct Bilirubin AST ALT Alkaline Phosphatase Total Creatine Kinase CK-MB (CK-2) C-Reactive Protein Total Protein Albumin Vitamin B12 Salicylates Acetaminophen Miscellaneous Test Flexitest 1 H Crossmatch 09/01/1003/30/19 03/30/19 16:11 17:11 17:46 WBC RBC Hgb Hct MCV MCH MCHC RDW Plt Count [place] % (Auto) Lymph # Seg Neuts % (Manual) Lymphocytes % (Manual) Nucleated RBC % Seg Neutrophils # Man Lymphocytes # (Manual) Monocytes # (Manual) PT INR APTT D-Dimer POC ABG pH ABG pH POC ABG pO2 ABG pO2 ABG HCO3 ABG O2 Saturation ABG Base Excess ABG Hemoglobin VBG pH Oxyhemoglobin Sodium Potassium Chloride Carbon Dioxide BUN Creatinine Glucose POC Glucose 181 H 167 H 125 H Lactic Acid Calcium Phosphorus Magnesium Iron TIBC Direct Bilirubin AST ALT Alkaline Phosphatase Total Creatine Kinase CK-MB (CK-2) C-Reactive Protein Total Protein Albumin Vitamin B12 Salicylates Acetaminophen Miscellaneous Test Crossmatch 03/30/19 03/30/19 03/30/19 18:59 21:31 22:19 WBC RBC Hgb Hct MCV MCH MCHC RDW Plt Count [place] % (Auto) Lymph # Seg Neuts % (Manual) Lymphocytes % (Manual) Nucleated RBC % Seg Neutrophils # Man Lymphocytes # (Manual) Monocytes # (Manual) PT INR APTT D-Dimer POC ABG pH ABG pH POC ABG pO2 ABG pO2 ABG HCO3 ABG O2 Saturation ABG Base Excess ABG Hemoglobin VBG pH Oxyhemoglobin Sodium Potassium Chloride Carbon Dioxide BUN Creatinine Glucose POC Glucose 140 H 166 H 115 H Lactic Acid Calcium Phosphorus Magnesium Iron TIBC Direct Bilirubin AST ALT Alkaline Phosphatase Total Creatine Kinase CK-MB (CK-2) C-Reactive Protein Total Protein Albumin Vitamin B12 Salicylates Acetaminophen Miscellaneous Test Crossmatch 03/30/19 03/30/19 03/30/19 23:13 Unknown Unknown WBC RBC Hgb Hct MCV MCH MCHC RDW Plt Count [place] % (Auto) Lymph # Seg Neuts % (Manual) Lymphocytes % (Manual) Nucleated RBC % Seg Neutrophils # Man Lymphocytes # (Manual) Monocytes # (Manual) PT INR APTT D-Dimer POC ABG pH ABG pH POC ABG pO2 ABG pO2 47.8 L ABG HCO3 18.8 L ABG O2 Saturation 83.8 L ABG Base Excess -5.4 L ABG Hemoglobin 6.8 L VBG pH Oxyhemoglobin 81.8 L Sodium 157 H Potassium 3.3 L Chloride 117.9 H Carbon Dioxide 20 L BUN 36 H Creatinine Glucose 150 H POC Glucose 112 H Lactic Acid Calcium 7.2 L Phosphorus Magnesium Iron TIBC Direct Bilirubin AST ALT Alkaline Phosphatase Total Creatine Kinase CK-MB (CK-2) C-Reactive Protein Total Protein Albumin Vitamin B12 Salicylates Acetaminophen Miscellaneous Test Crossmatch 03/30/19 03/30/19 03/31/19 Unknown Unknown 00:03 WBC RBC Hgb Hct MCV MCH MCHC RDW Plt Count [place] % (Auto) Lymph # Seg Neuts % (Manual) Lymphocytes % (Manual) Nucleated RBC % Seg Neutrophils # Man Lymphocytes # (Manual) Monocytes # (Manual) PT INR APTT D-Dimer POC ABG pH ABG pH POC ABG pO2 ABG pO2 ABG HCO3 ABG O2 Saturation ABG Base Excess ABG Hemoglobin VBG pH Oxyhemoglobin Sodium Potassium Chloride Carbon Dioxide BUN Creatinine Glucose POC Glucose 188 H Lactic Acid Calcium Phosphorus Magnesium Iron TIBC Direct Bilirubin AST ALT Alkaline Phosphatase Total Creatine Kinase CK-MB (CK-2) C-Reactive Protein Total Protein Albumin Vitamin B12 Salicylates 0.8 L Acetaminophen < 5.0 L Miscellaneous Test Crossmatch 03/31/19 03/31/19 03/31/19 01:18 03:07 03:50 WBC RBC Hgb Hct MCV MCH MCHC RDW Plt Count [place] % (Auto) Lymph # Seg Neuts % (Manual) Lymphocytes % (Manual) Nucleated RBC % Seg Neutrophils # Man Lymphocytes # (Manual) Monocytes # (Manual) PT INR APTT D-Dimer POC ABG pH ABG pH 7.525 H POC ABG pO2 ABG pO2 178.0 H ABG HCO3 19.5 L ABG O2 Saturation 99.2 H ABG Base Excess -3.1 L ABG Hemoglobin 5.8 L VBG pH Oxyhemoglobin Sodium Potassium Chloride Carbon Dioxide BUN Creatinine Glucose POC Glucose 114 H 107 H Lactic Acid Calcium Phosphorus Magnesium Iron TIBC Direct Bilirubin AST ALT Alkaline Phosphatase Total Creatine Kinase CK-MB (CK-2) C-Reactive Protein Total Protein Albumin Vitamin B12 Salicylates Acetaminophen Miscellaneous Test Crossmatch 03/31/19 03/31/19 03/31/19 03:51 03:51 04:05 WBC RBC 1.89 L Hgb 6.1 L Hct 18.2 L* MCV MCH MCHC RDW 17.7 H Plt Count 89 L [place] % (Auto) Lymph # Seg Neuts % (Manual) 86.0 H Lymphocytes % (Manual) 10.0 L Nucleated RBC % 1.0 H Seg Neutrophils # Man Lymphocytes # (Manual) 0.7 L Monocytes # (Manual) PT INR APTT D-Dimer POC ABG pH ABG pH POC ABG pO2 ABG pO2 ABG HCO3 ABG O2 Saturation ABG Base Excess ABG Hemoglobin VBG pH Oxyhemoglobin Sodium 151 H Potassium 3.2 L Chloride 119.4 H Carbon Dioxide 17 L BUN 35 H Creatinine Glucose 139 H POC Glucose 153 H Lactic Acid Calcium 7.1 L Phosphorus Magnesium Iron TIBC Direct Bilirubin AST ALT Alkaline Phosphatase Total Creatine Kinase CK-MB (CK-2) C-Reactive Protein Total Protein Albumin Vitamin B12 Salicylates Acetaminophen Miscellaneous Test Crossmatch 03/31/19 03/31/19 03/31/19 05:05 05:35 06:23 WBC RBC Hgb Hct MCV MCH MCHC RDW Plt Count [place] % (Auto) Lymph # Seg Neuts % (Manual) Lymphocytes % (Manual) Nucleated RBC % Seg Neutrophils # Man Lymphocytes # (Manual) Monocytes # (Manual) PT INR APTT D-Dimer POC ABG pH ABG pH POC ABG pO2 ABG pO2 ABG HCO3 ABG O2 Saturation ABG Base Excess ABG Hemoglobin VBG pH Oxyhemoglobin Sodium Potassium Chloride Carbon Dioxide BUN Creatinine Glucose POC Glucose 176 H 133 H Lactic Acid 3.20 H* Calcium Phosphorus Magnesium Iron TIBC Direct Bilirubin AST ALT Alkaline Phosphatase Total Creatine Kinase CK-MB (CK-2) C-Reactive Protein Total Protein Albumin Vitamin B12 Salicylates Acetaminophen Miscellaneous Test Crossmatch 03/31/19 03/31/19 03/31/19 07:50 07:51 08:20 WBC RBC Hgb Hct MCV MCH MCHC RDW Plt Count [place] % (Auto) Lymph # Seg Neuts % (Manual) Lymphocytes % (Manual) Nucleated RBC % Seg Neutrophils # Man Lymphocytes # (Manual) Monocytes # (Manual) PT INR APTT D-Dimer POC ABG pH ABG pH POC ABG pO2 ABG pO2 ABG HCO3 ABG O2 Saturation ABG Base Excess ABG Hemoglobin VBG pH Oxyhemoglobin Sodium Potassium Chloride Carbon Dioxide BUN Creatinine Glucose POC Glucose 135 H Lactic Acid 3.30 H* Calcium Phosphorus Magnesium Iron 26 L TIBC 193 L Direct Bilirubin AST ALT Alkaline Phosphatase Total Creatine Kinase CK-MB (CK-2) C-Reactive Protein Total Protein Albumin Vitamin B12 Salicylates Acetaminophen Miscellaneous Test Crossmatch 03/31/19 03/31/19 03/31/19 08:20 08:20 09:06 WBC RBC Hgb Hct MCV MCH MCHC RDW Plt Count [place] % (Auto) Lymph # Seg Neuts % (Manual) Lymphocytes % (Manual) Nucleated RBC % Seg Neutrophils # Man Lymphocytes # (Manual) Monocytes # (Manual) PT INR APTT D-Dimer POC ABG pH ABG pH POC ABG pO2 ABG pO2 ABG HCO3 ABG O2 Saturation ABG Base Excess ABG Hemoglobin VBG pH Oxyhemoglobin Sodium 153 H Potassium 3.0 L Chloride 118.9 H Carbon Dioxide 18 L BUN 37 H Creatinine Glucose 132 H POC Glucose 145 H Lactic Acid Calcium 7.1 L Phosphorus Magnesium Iron TIBC Direct Bilirubin AST ALT Alkaline Phosphatase Total Creatine Kinase CK-MB (CK-2) C-Reactive Protein Total Protein Albumin Vitamin B12 > 2000 H Salicylates Acetaminophen Miscellaneous Test Crossmatch 03/31/19 03/31/19 03/31/19 10:47 11:49 13:04 WBC RBC Hgb Hct MCV MCH MCHC RDW Plt Count [place] % (Auto) Lymph # Seg Neuts % (Manual) Lymphocytes % (Manual) Nucleated RBC % Seg Neutrophils # Man Lymphocytes # (Manual) Monocytes # (Manual) PT INR APTT D-Dimer POC ABG pH ABG pH POC ABG pO2 ABG pO2 ABG HCO3 ABG O2 Saturation ABG Base Excess ABG Hemoglobin VBG pH Oxyhemoglobin Sodium Potassium Chloride Carbon Dioxide BUN Creatinine Glucose POC Glucose 153 H 174 H 214 H Lactic Acid Calcium Phosphorus Magnesium Iron TIBC Direct Bilirubin AST ALT Alkaline Phosphatase Total Creatine Kinase CK-MB (CK-2) C-Reactive Protein Total Protein Albumin Vitamin B12 Salicylates Acetaminophen Miscellaneous Test Crossmatch 03/31/19 03/31/19 03/31/19 13:42 15:08 16:08 WBC RBC Hgb Hct MCV MCH MCHC RDW Plt Count [place] % (Auto) Lymph # Seg Neuts % (Manual) Lymphocytes % (Manual) Nucleated RBC % Seg Neutrophils # Man Lymphocytes # (Manual) Monocytes # (Manual) PT INR APTT D-Dimer POC ABG pH ABG pH POC ABG pO2 ABG pO2 ABG HCO3 ABG O2 Saturation ABG Base Excess ABG Hemoglobin VBG pH Oxyhemoglobin Sodium Potassium Chloride Carbon Dioxide BUN Creatinine Glucose POC Glucose 186 H 136 H 150 H Lactic Acid Calcium Phosphorus Magnesium Iron TIBC Direct Bilirubin AST ALT Alkaline Phosphatase Total Creatine Kinase CK-MB (CK-2) C-Reactive Protein Total Protein Albumin Vitamin B12 Salicylates Acetaminophen Miscellaneous Test Crossmatch 03/31/19 03/31/19 03/31/19 17:11 17:30 17:30 WBC RBC Hgb 7.7 L Hct 23.0 L MCV MCH MCHC RDW Plt Count [place] % (Auto) Lymph # Seg Neuts % (Manual) Lymphocytes % (Manual) Nucleated RBC % Seg Neutrophils # Man Lymphocytes # (Manual) Monocytes # (Manual) PT INR APTT D-Dimer POC ABG pH ABG pH POC ABG pO2 ABG pO2 ABG HCO3 ABG O2 Saturation ABG Base Excess ABG Hemoglobin VBG pH Oxyhemoglobin Sodium 153 H Potassium 3.5 L Chloride 119.3 H Carbon Dioxide 20 L BUN 34 H Creatinine Glucose 162 H POC Glucose 140 H Lactic Acid Calcium 7.6 L Phosphorus Magnesium Iron TIBC Direct Bilirubin AST ALT Alkaline Phosphatase Total Creatine Kinase CK-MB (CK-2) C-Reactive Protein Total Protein Albumin Vitamin B12 Salicylates Acetaminophen Miscellaneous Test Crossmatch 03/31/19 03/31/19 03/31/19 17:59 18:58 20:28 WBC RBC Hgb Hct MCV MCH MCHC RDW Plt Count [place] % (Auto) Lymph # Seg Neuts % (Manual) Lymphocytes % (Manual) Nucleated RBC % Seg Neutrophils # Man Lymphocytes # (Manual) Monocytes # (Manual) PT INR APTT D-Dimer POC ABG pH ABG pH POC ABG pO2 ABG pO2 ABG HCO3 ABG O2 Saturation ABG Base Excess ABG Hemoglobin VBG pH Oxyhemoglobin Sodium Potassium Chloride Carbon Dioxide BUN Creatinine Glucose POC Glucose 156 H 152 H 138 H Lactic Acid Calcium Phosphorus Magnesium Iron TIBC Direct Bilirubin AST ALT Alkaline Phosphatase Total Creatine Kinase CK-MB (CK-2) C-Reactive Protein Total Protein Albumin Vitamin B12 Salicylates Acetaminophen Miscellaneous Test Crossmatch 03/31/19 03/31/19 03/31/19 21:09 22:15 23:10 WBC RBC Hgb Hct MCV MCH MCHC RDW Plt Count [place] % (Auto) Lymph # Seg Neuts % (Manual) Lymphocytes % (Manual) Nucleated RBC % Seg Neutrophils # Man Lymphocytes # (Manual) Monocytes # (Manual) PT INR APTT D-Dimer POC ABG pH ABG pH POC ABG pO2 ABG pO2 ABG HCO3 ABG O2 Saturation ABG Base Excess ABG Hemoglobin VBG pH Oxyhemoglobin Sodium Potassium Chloride Carbon Dioxide BUN Creatinine Glucose POC Glucose 136 H 137 H 148 H Lactic Acid Calcium Phosphorus Magnesium Iron TIBC Direct Bilirubin AST ALT Alkaline Phosphatase Total Creatine Kinase CK-MB (CK-2) C-Reactive Protein Total Protein Albumin Vitamin B12 Salicylates Acetaminophen Miscellaneous Test Crossmatch 04/01/19 04/01/19 04/01/19 00:05 01:17 02:11 WBC RBC Hgb Hct MCV MCH MCHC RDW Plt Count [place] % (Auto) Lymph # Seg Neuts % (Manual) Lymphocytes % (Manual) Nucleated RBC % Seg Neutrophils # Man Lymphocytes # (Manual) Monocytes # (Manual) PT INR APTT D-Dimer POC ABG pH ABG pH POC ABG pO2 ABG pO2 ABG HCO3 ABG O2 Saturation ABG Base Excess ABG Hemoglobin VBG pH Oxyhemoglobin Sodium Potassium Chloride Carbon Dioxide BUN Creatinine Glucose POC Glucose 143 H 151 H 155 H Lactic Acid Calcium Phosphorus Magnesium Iron TIBC Direct Bilirubin AST ALT Alkaline Phosphatase Total Creatine Kinase CK-MB (CK-2) C-Reactive Protein Total Protein Albumin Vitamin B12 Salicylates Acetaminophen Miscellaneous Test Crossmatch 04/01/19 04/01/19 04/01/19 03:12 04:03 04:16 WBC RBC Hgb Hct MCV MCH MCHC RDW Plt Count [place] % (Auto) Lymph # Seg Neuts % (Manual) Lymphocytes % (Manual) Nucleated RBC % Seg Neutrophils # Man Lymphocytes # (Manual) Monocytes # (Manual) PT INR APTT D-Dimer POC ABG pH ABG pH POC ABG pO2 ABG pO2 ABG HCO3 ABG O2 Saturation ABG Base Excess ABG Hemoglobin VBG pH Oxyhemoglobin Sodium Potassium Chloride Carbon Dioxide BUN Creatinine Glucose POC Glucose 140 H 143 H 142 H Lactic Acid Calcium Phosphorus Magnesium Iron TIBC Direct Bilirubin AST ALT Alkaline Phosphatase Total Creatine Kinase CK-MB (CK-2) C-Reactive Protein Total Protein Albumin Vitamin B12 Salicylates Acetaminophen Miscellaneous Test Crossmatch 04/01/19 04/01/19 04/01/19 05:01 05:01 05:08 WBC RBC 2.05 L Hgb 6.8 L Hct 20.5 L MCV 100 H MCH 33 H MCHC RDW 17.7 H Plt Count 53 L [place] % (Auto) Lymph # Seg Neuts % (Manual) 71.0 H Lymphocytes % (Manual) Nucleated RBC % Seg Neutrophils # Man Lymphocytes # (Manual) Monocytes # (Manual) PT INR APTT D-Dimer POC ABG pH ABG pH POC ABG pO2 ABG pO2 ABG HCO3 ABG O2 Saturation ABG Base Excess ABG Hemoglobin VBG pH Oxyhemoglobin Sodium Potassium Chloride Carbon Dioxide BUN Creatinine Glucose POC Glucose 119 H Lactic Acid Calcium Phosphorus Magnesium Iron TIBC Direct Bilirubin 0.3 H AST 4601 H ALT 1542 H Alkaline Phosphatase 185 H Total Creatine Kinase CK-MB (CK-2) C-Reactive Protein Total Protein 3.8 L Albumin 1.6 L Vitamin B12 Salicylates Acetaminophen Miscellaneous Test Crossmatch 04/01/19 04/01/19 04/01/19 05:23 06:37 08:15 WBC RBC Hgb Hct MCV MCH MCHC RDW Plt Count [place] % (Auto) Lymph # Seg Neuts % (Manual) Lymphocytes % (Manual) Nucleated RBC % Seg Neutrophils # Man Lymphocytes # (Manual) Monocytes # (Manual) PT INR APTT D-Dimer POC ABG pH ABG pH POC ABG pO2 ABG pO2 ABG HCO3 ABG O2 Saturation ABG Base Excess ABG Hemoglobin VBG pH Oxyhemoglobin Sodium Potassium Chloride Carbon Dioxide BUN Creatinine Glucose POC Glucose 115 H 124 H 138 H Lactic Acid Calcium Phosphorus Magnesium Iron TIBC Direct Bilirubin AST ALT Alkaline Phosphatase Total Creatine Kinase CK-MB (CK-2) C-Reactive Protein Total Protein Albumin Vitamin B12 Salicylates Acetaminophen Miscellaneous Test Crossmatch 04/01/19 04/01/19 04/01/19 09:50 10:10 10:31 WBC RBC Hgb 6.5 L Hct 19.2 L* MCV MCH MCHC RDW Plt Count [place] % (Auto) Lymph # Seg Neuts % (Manual) Lymphocytes % (Manual) Nucleated RBC % Seg Neutrophils # Man Lymphocytes # (Manual) Monocytes # (Manual) PT INR APTT D-Dimer POC ABG pH ABG pH POC ABG pO2 ABG pO2 ABG HCO3 ABG O2 Saturation ABG Base Excess ABG Hemoglobin VBG pH Oxyhemoglobin Sodium 149 H Potassium 3.5 L Chloride 119.9 H Carbon Dioxide 21 L BUN 33 H Creatinine 0.5 L Glucose 142 H POC Glucose 185 H Lactic Acid Calcium 7.3 L Phosphorus Magnesium Iron TIBC Direct Bilirubin AST 3686 H ALT 1440 H Alkaline Phosphatase 185 H Total Creatine Kinase CK-MB (CK-2) C-Reactive Protein Total Protein 3.7 L Albumin 1.8 L Vitamin B12 Salicylates Acetaminophen Miscellaneous Test Crossmatch 04/01/19 04/01/19 04/01/19 11:35 13:05 14:35 WBC RBC Hgb Hct MCV MCH MCHC RDW Plt Count [place] % (Auto) Lymph # Seg Neuts % (Manual) Lymphocytes % (Manual) Nucleated RBC % Seg Neutrophils # Man Lymphocytes # (Manual) Monocytes # (Manual) PT INR APTT D-Dimer POC ABG pH ABG pH POC ABG pO2 ABG pO2 ABG HCO3 ABG O2 Saturation ABG Base Excess ABG Hemoglobin VBG pH Oxyhemoglobin Sodium Potassium Chloride Carbon Dioxide BUN Creatinine Glucose POC Glucose 201 H 169 H 134 H Lactic Acid Calcium Phosphorus Magnesium Iron TIBC Direct Bilirubin AST ALT Alkaline Phosphatase Total Creatine Kinase CK-MB (CK-2) C-Reactive Protein Total Protein Albumin Vitamin B12 Salicylates Acetaminophen Miscellaneous Test Crossmatch 04/01/19 04/01/19 04/01/19 17:13 17:14 18:30 WBC RBC Hgb Hct MCV MCH MCHC RDW Plt Count [place] % (Auto) Lymph # Seg Neuts % (Manual) Lymphocytes % (Manual) Nucleated RBC % Seg Neutrophils # Man Lymphocytes # (Manual) Monocytes # (Manual) PT INR APTT D-Dimer 5203.68 H POC ABG pH ABG pH POC ABG pO2 ABG pO2 ABG HCO3 ABG O2 Saturation ABG Base Excess ABG Hemoglobin VBG pH Oxyhemoglobin Sodium Potassium Chloride Carbon Dioxide BUN Creatinine Glucose POC Glucose 69 L 128 H Lactic Acid Calcium Phosphorus Magnesium Iron TIBC Direct Bilirubin AST ALT Alkaline Phosphatase Total Creatine Kinase CK-MB (CK-2) C-Reactive Protein Total Protein Albumin Vitamin B12 Salicylates Acetaminophen Miscellaneous Test Crossmatch 04/01/19 04/01/19 04/02/19 22:50 Unknown 03:40 WBC RBC Hgb Hct MCV MCH MCHC RDW Plt Count [place] % (Auto) Lymph # Seg Neuts % (Manual) Lymphocytes % (Manual) Nucleated RBC % Seg Neutrophils # Man Lymphocytes # (Manual) Monocytes # (Manual) PT INR APTT D-Dimer POC ABG pH ABG pH POC ABG pO2 ABG pO2 78.3 L 142.8 H ABG HCO3 15.5 L ABG O2 Saturation ABG Base Excess -3.5 L -8.2 L ABG Hemoglobin 6.8 L 8.2 L VBG pH Oxyhemoglobin 94.3 L Sodium Potassium Chloride Carbon Dioxide BUN Creatinine Glucose POC Glucose 342 H Lactic Acid Calcium Phosphorus Magnesium Iron TIBC Direct Bilirubin AST ALT Alkaline Phosphatase Total Creatine Kinase CK-MB (CK-2) C-Reactive Protein Total Protein Albumin Vitamin B12 Salicylates Acetaminophen Miscellaneous Test Crossmatch 04/02/19 04/02/19 04/02/19 03:49 06:50 07:48 WBC RBC 2.65 L Hgb 8.6 L Hct 25.1 L MCV MCH MCHC RDW 17.6 H Plt Count 48 L [place] % (Auto) Lymph # Seg Neuts % (Manual) Lymphocytes % (Manual) Nucleated RBC % Seg Neutrophils # Man Lymphocytes # (Manual) Monocytes # (Manual) PT INR APTT D-Dimer POC ABG pH ABG pH POC ABG pO2 ABG pO2 ABG HCO3 ABG O2 Saturation ABG Base Excess ABG Hemoglobin VBG pH Oxyhemoglobin Sodium Potassium Chloride Carbon Dioxide BUN Creatinine Glucose POC Glucose 247 H 200 H Lactic Acid Calcium Phosphorus Magnesium Iron TIBC Direct Bilirubin AST ALT Alkaline Phosphatase Total Creatine Kinase CK-MB (CK-2) C-Reactive Protein Total Protein Albumin Vitamin B12 Salicylates Acetaminophen Miscellaneous Test Crossmatch 04/02/19 04/02/19 04/02/19 07:48 11:18 14:07 WBC RBC Hgb Hct MCV MCH MCHC RDW Plt Count [place] % (Auto) Lymph # Seg Neuts % (Manual) Lymphocytes % (Manual) Nucleated RBC % Seg Neutrophils # Man Lymphocytes # (Manual) Monocytes # (Manual) PT INR APTT D-Dimer POC ABG pH ABG pH POC ABG pO2 ABG pO2 ABG HCO3 ABG O2 Saturation ABG Base Excess ABG Hemoglobin VBG pH Oxyhemoglobin Sodium Potassium 3.5 L Chloride 115.7 H Carbon Dioxide 19 L BUN 29 H Creatinine 0.5 L Glucose 159 H POC Glucose 154 H 149 H Lactic Acid Calcium 7.5 L Phosphorus Magnesium Iron TIBC Direct Bilirubin AST 1418 H ALT 1134 H Alkaline Phosphatase 242 H Total Creatine Kinase CK-MB (CK-2) C-Reactive Protein Total Protein 4.2 L Albumin 2.1 L Vitamin B12 Salicylates Acetaminophen Miscellaneous Test Crossmatch 04/02/19 04/02/19 04/02/19 18:09 19:46 23:05 WBC RBC Hgb Hct MCV MCH MCHC RDW Plt Count [place] % (Auto) Lymph # Seg Neuts % (Manual) Lymphocytes % (Manual) Nucleated RBC % Seg Neutrophils # Man Lymphocytes # (Manual) Monocytes # (Manual) PT INR APTT D-Dimer POC ABG pH ABG pH POC ABG pO2 ABG pO2 ABG HCO3 ABG O2 Saturation ABG Base Excess ABG Hemoglobin VBG pH Oxyhemoglobin Sodium Potassium Chloride Carbon Dioxide BUN Creatinine Glucose POC Glucose 188 H 209 H 247 H Lactic Acid Calcium Phosphorus Magnesium Iron TIBC Direct Bilirubin AST ALT Alkaline Phosphatase Total Creatine Kinase CK-MB (CK-2) C-Reactive Protein Total Protein Albumin Vitamin B12 Salicylates Acetaminophen Miscellaneous Test Crossmatch 04/03/19 04/03/19 04/03/19 02:58 03:40 03:40 WBC RBC 2.87 L Hgb 9.3 L Hct 27.0 L MCV MCH MCHC RDW 17.2 H Plt Count 65 L [place] % (Auto) 9.8 H Lymph # 1.1 L Seg Neuts % (Manual) Lymphocytes % (Manual) Nucleated RBC % Seg Neutrophils # Man Lymphocytes # (Manual) Monocytes # (Manual) PT INR APTT D-Dimer POC ABG pH ABG pH POC ABG pO2 ABG pO2 ABG HCO3 ABG O2 Saturation ABG Base Excess ABG Hemoglobin VBG pH Oxyhemoglobin Sodium 147 H Potassium 3.5 L Chloride 116.7 H Carbon Dioxide 18 L BUN Creatinine 0.4 L Glucose 150 H POC Glucose 166 H Lactic Acid Calcium 8.1 L Phosphorus 2.20 L Magnesium Iron TIBC Direct Bilirubin AST 594 H ALT 861 H Alkaline Phosphatase 299 H Total Creatine Kinase CK-MB (CK-2) C-Reactive Protein Total Protein 4.4 L Albumin 2.1 L Vitamin B12 Salicylates Acetaminophen Miscellaneous Test Crossmatch 04/03/19 04/03/19 04/03/19 05:35 07:02 08:23 WBC RBC Hgb Hct MCV MCH MCHC RDW Plt Count [place] % (Auto) Lymph # Seg Neuts % (Manual) Lymphocytes % (Manual) Nucleated RBC % Seg Neutrophils # Man Lymphocytes # (Manual) Monocytes # (Manual) PT INR APTT D-Dimer POC ABG pH ABG pH POC ABG pO2 ABG pO2 97.7 H ABG HCO3 19.3 L ABG O2 Saturation ABG Base Excess -5.0 L ABG Hemoglobin 8.0 L VBG pH Oxyhemoglobin Sodium Potassium Chloride Carbon Dioxide BUN Creatinine Glucose POC Glucose 135 H 132 H Lactic Acid Calcium Phosphorus Magnesium Iron TIBC Direct Bilirubin AST ALT Alkaline Phosphatase Total Creatine Kinase CK-MB (CK-2) C-Reactive Protein Total Protein Albumin Vitamin B12 Salicylates Acetaminophen Miscellaneous Test Crossmatch 04/03/19 04/03/19 04/03/19 11:58 15:11 17:53 WBC RBC Hgb Hct MCV MCH MCHC RDW Plt Count [place] % (Auto) Lymph # Seg Neuts % (Manual) Lymphocytes % (Manual) Nucleated RBC % Seg Neutrophils # Man Lymphocytes # (Manual) Monocytes # (Manual) PT INR APTT D-Dimer POC ABG pH ABG pH POC ABG pO2 ABG pO2 ABG HCO3 ABG O2 Saturation ABG Base Excess ABG Hemoglobin VBG pH Oxyhemoglobin Sodium Potassium Chloride Carbon Dioxide BUN Creatinine Glucose POC Glucose 179 H 213 H 223 H Lactic Acid Calcium Phosphorus Magnesium Iron TIBC Direct Bilirubin AST ALT Alkaline Phosphatase Total Creatine Kinase CK-MB (CK-2) C-Reactive Protein Total Protein Albumin Vitamin B12 Salicylates Acetaminophen Miscellaneous Test Crossmatch 04/03/19 04/04/19 04/04/19 23:06 02:36 06:41 WBC RBC Hgb Hct MCV MCH MCHC RDW Plt Count [place] % (Auto) Lymph # Seg Neuts % (Manual) Lymphocytes % (Manual) Nucleated RBC % Seg Neutrophils # Man Lymphocytes # (Manual) Monocytes # (Manual) PT INR APTT D-Dimer POC ABG pH ABG pH POC ABG pO2 ABG pO2 ABG HCO3 ABG O2 Saturation ABG Base Excess ABG Hemoglobin VBG pH Oxyhemoglobin Sodium Potassium Chloride Carbon Dioxide BUN Creatinine Glucose POC Glucose 189 H 157 H 131 H Lactic Acid Calcium Phosphorus Magnesium Iron TIBC Direct Bilirubin AST ALT Alkaline Phosphatase Total Creatine Kinase CK-MB (CK-2) C-Reactive Protein Total Protein Albumin Vitamin B12 Salicylates Acetaminophen Miscellaneous Test Crossmatch 04/04/19 11:42 WBC RBC Hgb Hct MCV MCH MCHC RDW Plt Count [place] % (Auto) Lymph # Seg Neuts % (Manual) Lymphocytes % (Manual) Nucleated RBC % Seg Neutrophils # Man Lymphocytes # (Manual) Monocytes # (Manual) PT INR APTT D-Dimer POC ABG pH ABG pH POC ABG pO2 ABG pO2 ABG HCO3 ABG O2 Saturation ABG Base Excess ABG Hemoglobin VBG pH Oxyhemoglobin Sodium Potassium Chloride Carbon Dioxide BUN Creatinine Glucose POC Glucose 233 H Lactic Acid Calcium Phosphorus Magnesium Iron TIBC Direct Bilirubin AST ALT Alkaline Phosphatase Total Creatine Kinase CK-MB (CK-2) C-Reactive Protein Total Protein Albumin Vitamin B12 Salicylates Acetaminophen Miscellaneous Test Crossmatch
[2019-04-04] MEDS: LANTUS SUB-Q SCH (21:34)
--- NOTE | 2019-04-05 04:16 | XRay Report ---
CHEST 1 VIEW [id number] INDICATION / CLINICAL INFORMATION: follow up respiratory failure. COMPARISON: 04/04/2019 FINDINGS: SUPPORT DEVICES: Stable HEART / MEDIASTINUM: Stable LUNGS / PLEURA: Bilateral areas of atelectasis and mild patchy infiltrate appears slightly more promi nent than on the left base is stable. No pneumothorax. ADDITIONAL FINDINGS: No significant additional findings. IMPRESSION: Slight worsening of infiltrates and atelectasis Signer Name: Jair Woo MD Signed: 04/05/2019 4:12 AM Workstation Name: [id number]
[2019-04-05] MEDS: CEFEPIME/NS 2 GM/100 ML 2 GM/100 ML BAG IV SCH ×3 (05:32→23:18)
[2019-04-05] MEDS: FLAGYL 500 MG/100 ML 500 MG/100 ML BAG IV SCH ×3 (05:32→23:18)
[2019-04-05] MEDS: HumuLIN R SUB-Q SCH ×6 (05:33→18:17)
[2019-04-05] MEDS: fentaNYL DRIP Premix 2,000 MCG/100 ML BAG IV SCH (06:01)
[2019-04-05 06:10] LABS: Hematocrit 26.3 % (30.3-42.9); Hemoglobin 8.5 gm/dl (10.1-14.3); Mean Corpuscular HGB Conc 32 % (30-34); Mean Corpuscular Volume 98 fl (79-97); Platelet Count 142 K/mm3 (140-440); Red Blood Count 2.68 M/mm3 (3.65-5.03); Red Cell Distribution Width 17.4 % (13.2-15.2)
[2019-04-05 06:31] LABS: BUN/Creatinine Ratio 60; Blood Urea Nitrogen 12 mg/dL (7-17); Calcium 7.9 mg/dL (8.4-10.2); Hemolysis Index 136
[2019-04-05] MEDS: SODIUM CHLORIDE FLUSH SYRINGE 10 ML IV SCH ×3 (07:56→23:30)
--- NOTE | 2019-04-05 08:54 | Progress Note ---
Assessment and Plan Assessment and plan: 28 year old woman with a history of diabetes was brought to the emergency room following a cardiac arrest. Her last well-known time was 10:30 in the morning, she was traveling with a friend, she was unresponsive in the back seat. EMS was called, CPR was started and continued here in the emergency room. Patient was intubated in the ER, noted hypotensive started on dobutamine, epinephrine and Levophed drip, given IV fluids, found to be in DKA with BG ~2200, several metabolic derangements - placed on insulin drip and admitted to ICU. Still intubated on vent, minimal response. Acute respiratory failure - on vent, cont nebs, CC consulted Acute encephalopathy, POA - CT head negative - likely from cardiac arrest - consulted neurology Cardiac arrest s/p resuscitation - likely 2/2 severe hyperglycemia - preserved EF onb2d echo DKA, severe - BG was >2200 on admission - s/p insulin drip. cont iv fluid - monitor BG q4h, on TF and on subqu insulin - adjust dose as needed Shock hypotensive vs sepsis - cont iv fluid, s/p pressor support - follow Cx result, cont abx - weaned off pressor as tolerated Sepsis with possible aspiration PNA - evident on CXR on admission with left sided infiltrates - cont abx per ID Head lice Permethin given Acute renal failure, likely vasomotor nephropathy - resolved - cont iv fluid, monitor BMP Anemia, acute on chronic - no sign of blood loss s/p 2 Units PRBC transfused Hyperkalemia, resolved with fluid and insulin Hypernatremia Repeat in am hypokalemia, replete as needed, monitor BMP Shock liver with elevated LFT and Coagulopathy - due to cardiac arrest and hypotension - cont to monitor Hypermagnesemia Hyperphosphatemia - cont to monitor, improved DVT Px, heparin Poor prognosis discussed with mother at bedside on 04/03/19 The high probability of a clinically significant, sudden or life threatening deterioration of the [multiple] system(s) required my full and direct attention, intervention and personal management. The aggregate critical care time was [33] minutes. This time is in addition to time spent performing reported procedures but includes the following: [x] Data Review and interpretation [x] Patient assessment and monitoring of vital signs [x] Documentation [x] Medication orders and management History Interval history: Minimal responsive still intubated Hospitalist Physical - Physical exam Narrative exam: Gen: Not in acute distress, intubated, on vent HEENT: Normocephalic, atraumatic Neck: supple, no JVD Heart: S1 and S2 reg, no murmurs, rubs or gallop Lungs: Clear to auscultation, no rhonchi, no wheeze Abd: soft, non tender, non distended, normal BS, Ext: No edema, no clubbing, no cyanosis Neuro: Minimal responsive, does not follow commands, - Constitutional Vitals: Temp Pulse Resp BP Pulse Ox 99.1 F 104 H 11 L 99/63 100 04/05/19 08:00 04/05/19 08:00 04/05/19 08:00 04/05/19 08:00 04/05/19 08:00 General appearance: Present: disheveled, other (intubated, sedated) Results - Labs CBC & Chem 7: 04/05/19 06:05 04/05/19 06:05 Labs: Laboratory Last Values WBC 8.6 K/mm3 (4.5-11.0) 04/05/19 06:05 RBC 2.68 M/mm3 (3.65-5.03) L 04/05/19 06:05 Hgb 8.5 gm/dl (10.1-14.3) L 04/05/19 06:05 Hct 26.3 % (30.3-42.9) L 04/05/19 06:05 MCV 98 fl (79-97) H 04/05/19 06:05 MCH 32 pg (28-32) 04/05/19 06:05 MCHC 32 % (30-34) 04/05/19 06:05 RDW 17.4 % (13.2-15.2) H 04/05/19 06:05 Plt Count 142 K/mm3 (140-440) D 04/05/19 06:05 Lymph % (Auto) 16.9 % (13.4-35.0) 04/03/19 03:40 [place] % (Auto) 9.8 % (0.0-7.3) H 04/03/19 03:40 Eos % (Auto) 3.2 % (0.0-4.3) 04/03/19 03:40 Baso % (Auto) 0.4 % (0.0-1.8) 04/03/19 03:40 Lymph # 1.1 K/mm3 (1.2-5.4) L 04/03/19 03:40 [place] # 0.6 K/mm3 (0.0-0.8) 04/03/19 03:40 Eos # 0.2 K/mm3 (0.0-0.4) 04/03/19 03:40 Baso # 0.0 K/mm3 (0.0-0.1) 04/03/19 03:40 Add Manual Diff Complete 04/01/19 05:01 Total Counted 100 04/01/19 05:01 Seg Neutrophils % 69.7 % (40.0-70.0) 04/03/19 03:40 Seg Neuts % (Manual) 71.0 % (40.0-70.0) H 04/01/19 05:01 0 % 04/01/19 05:01 20.0 % (13.4-35.0) 04/01/19 05:01 Reactive Lymphs % (Man) 0 % 04/01/19 05:01 7.0 % (0.0-7.3) 04/01/19 05:01 2.0 % (0.0-4.3) 04/01/19 05:01 0 % (0.0-1.8) 04/01/19 05:01 0 % 04/01/19 05:01 0 % 04/01/19 05:01 0 % 04/01/19 05:01 0 % 04/01/19 05:01 Nucleated RBC % Not Reportable 04/01/19 05:01 Seg Neutrophils # 4.4 K/mm3 (1.8-7.7) 04/03/19 03:40 Seg Neutrophils # Man 4.8 K/mm3 (1.8-7.7) 04/01/19 05:01 Band Neutrophils # 0.0 K/mm3 04/01/19 05:01 1.4 K/mm3 (1.2-5.4) 04/01/19 05:01 Abs React Lymphs (Man) 0.0 K/mm3 04/01/19 05:01 0.5 K/mm3 (0.0-0.8) 04/01/19 05:01 0.1 K/mm3 (0.0-0.4) 04/01/19 05:01 0.0 K/mm3 (0.0-0.1) 04/01/19 05:01 0.0 K/mm3 04/01/19 05:01 0.0 K/mm3 04/01/19 05:01 0.0 K/mm3 04/01/19 05:01 Blast Cells # 0.0 K/mm3 04/01/19 05:01 WBC Morphology Not Reportable 04/01/19 05:01 Hypersegmented Neuts Not Reportable 04/01/19 05:01 Hyposegmented Neuts Not Reportable 04/01/19 05:01 Hypogranular Neuts Not Reportable 04/01/19 05:01 Not Reportable 04/01/19 05:01 Not Reportable 04/01/19 05:01 Not Reportable 04/01/19 05:01 Not Reportable 04/01/19 05:01 Not Reportable 04/01/19 05:01 Not Reportable 04/01/19 05:01 Not Reportable 04/01/19 05:01 Not Reportable 04/01/19 05:01 Plt Clumps, EDTA Not Reportable 04/01/19 05:01 Not Reportable 04/01/19 05:01 Not Reportable 04/01/19 05:01 Not Reportable 04/01/19 05:01 Plt Morphology Comment Not Reportable 04/01/19 05:01 RBC Morphology Normal 04/01/19 05:01 Dimorphic RBCs Not Reportable 04/01/19 05:01 Not Reportable 04/01/19 05:01 Not Reportable 04/01/19 05:01 Not Reportable 04/01/19 05:01 Not Reportable 04/01/19 05:01 Not Reportable 04/01/19 05:01 Not Reportable 04/01/19 05:01 Not Reportable 04/01/19 05:01 Not Reportable 04/01/19 05:01 Not Reportable 04/01/19 05:01 Not Reportable 04/01/19 05:01 Not Reportable 04/01/19 05:01 Not Reportable 04/01/19 05:01 Not Reportable 04/01/19 05:01 Not Reportable 04/01/19 05:01 Not Reportable 04/01/19 05:01 Not Reportable 04/01/19 05:01 Not Reportable 04/01/19 05:01 Not Reportable 04/01/19 05:01 Not Reportable 04/01/19 05:01 Acanthocytes (Spur) Not Reportable 04/01/19 05:01 Rouleaux Not Reportable 04/01/19 05:01 Not Reportable 04/01/19 05:01 Not Reportable 04/01/19 05:01 Not Reportable 04/01/19 05:01 Not Reportable 04/01/19 05:01 Hem Pathologist Commnt No 04/01/19 05:01 PT 13.9 Sec. (12.2-14.9) 04/01/19 17:14 INR 1.10 (0.87-1.13) 04/01/19 17:14 APTT 74.5 Sec. (24.2-36.6) H* 03/29/19 19:20 313 mg/dl (211-480) 04/01/19 17:14 5203.68 ng/mlDDU (0-234) H 04/01/19 17:14 Heparin Anti-Xa, Unfract Negative (Negative) 03/31/19 15:00 POC ABG pH 7.374 (7.35-7.45) 04/04/19 03:46 ABG pH 7.396 pH Units (7.350-7.450) 04/03/19 05:35 POC ABG pCO2 36.2 (35-45) 04/04/19 03:46 ABG pCO2 32.2 mm Hg 04/03/19 05:35 POC ABG pO2 96 (80-105) 04/04/19 03:46 ABG pO2 97.7 mm Hg (80.0-90.0) H 04/03/19 05:35 POC ABG HCO3 21.2 (22-26 mml/L) 04/04/19 03:46 ABG HCO3 19.3 mmol/L (20.0-26.0) L 04/03/19 05:35 POC ABG Total CO2 22 (23-27mmol/L) 04/04/19 03:46 POC ABG O2 Sat 97 04/04/19 03:46 ABG O2 Saturation 97.6 % (95.0-99.0) 04/03/19 05:35 ABG O2 Content 10.9 (0.0-44) 04/03/19 05:35 POC ABG Base Excess -4 ((-2) - (+3)mmol/L) 04/04/19 03:46 ABG Base Excess -5.0 mmol/L (-2.0-3.0) L 04/03/19 05:35 ABG Hemoglobin 8.0 gm/dl (12.0-16.0) L 04/03/19 05:35 ABG Carboxyhemoglobin 2.1 % (0.0-5.0) 04/03/19 05:35 ABG Methemoglobin 0.5 % (0.0-1.5) 04/03/19 05:35 VBG pH 6.800 (7.320-7.420) L* 03/29/19 19:47 95.1 % (95.0-99.0) 04/03/19 05:35 25 % 04/04/19 03:46 Sodium 144 mmol/L (137-145) 04/05/19 06:05 Potassium 4.6 mmol/L (3.6-5.0) D 04/05/19 06:05 Chloride 112.5 mmol/L (98-107) H 04/05/19 06:05 Carbon Dioxide 23 mmol/L (22-30) 04/05/19 06:05 13 mmol/L 04/05/19 06:05 BUN 12 mg/dL (7-17) 04/05/19 06:05 0.2 mg/dL (0.7-1.2) L 04/05/19 06:05 Estimated GFR > 60 ml/min 04/05/19 06:05 60 % 04/05/19 06:05 Glucose 237 mg/dL (65-100) H 04/05/19 06:05 POC Glucose 283 (70-105) H 04/05/19 06:49 Lactic Acid 3.30 mmol/L (0.7-2.0) H* 03/31/19 07:50 Calcium 7.9 mg/dL (8.4-10.2) L 04/05/19 06:05 Phosphorus 2.20 mg/dL (2.5-4.5) L 04/03/19 03:40 Magnesium 2.60 mg/dL (1.7-2.3) H 03/30/19 05:26 Iron 26 ug/dL (37-170) L 03/31/19 08:20 TIBC 193 mcg/dL (250-450) L 03/31/19 08:20 0.60 mg/dL (0.1-1.2) 04/03/19 03:40 0.2 mg/dL (0-0.2) 04/02/19 07:48 0.5 mg/dL 04/02/19 07:48 AST 594 units/L (5-40) H 04/03/19 03:40 ALT 861 units/L (7-56) H 04/03/19 03:40 299 units/L (35-129) H 04/03/19 03:40 2465 units/L (30-135) H 03/30/19 05:26 CK-MB (CK-2) 52.7 ng/mL (0.0-4.0) H 03/30/19 05:26 CK-MB (CK-2) Rel Index 2.1 (0-4) 03/30/19 05:26 0.014 ng/mL (0.00-0.029) 03/30/19 05:26 2.40 mg/dL (0.00-1.30) H 03/30/19 12:57 4.4 g/dL (6.3-8.2) L 04/03/19 03:40 2.1 g/dL (3.9-5) L 04/03/19 03:40 0.9 % 04/03/19 03:40 See scanned result 03/31/19 15:00 Vitamin B12 > 2000 pg/mL (211-911) H 03/31/19 08:20 > 20 ng/mL (7.3-26.0) 03/31/19 08:20 HCG, Qual Negative (Negative) 03/29/19 19:20 Yellow (Yellow) 03/29/19 23:10 Slightly-cloudy (Clear) 03/29/19 23:10 6.0 (5.0-7.0) 03/29/19 23:10 Ur Specific [place] 1.021 (1.003-1.030) 03/29/19 23:10 100 mg/dl mg/dL (Negative) 03/29/19 23:10 >=500 mg/dL (Negative) 03/29/19 23:10 20 mg/dL (Negative) 03/29/19 23:10 Lg (Negative) 03/29/19 23:10 Neg (Negative) 03/29/19 23:10 Neg (Negative) 03/29/19 23:10 < 2.0 mg/dL (<2.0) 03/29/19 23:10 Ur Leukocyte Esterase Neg (Negative) 03/29/19 23:10 1.0 /HPF (0.0-6.0) 03/29/19 23:10 1.0 /HPF (0.0-6.0) 03/29/19 23:10 Few /HPF 03/29/19 23:10 Salicylates 0.8 mg/dL (2.8-20.0) L 03/30/19 Unknown Presumptive negative 03/29/19 23:10 Presumptive negative 03/29/19 23:10 Acetaminophen < 5.0 ug/mL (10.0-30.0) L 03/30/19 Unknown Ur Barbiturates Screen Presumptive negative 03/29/19 23:10 Ur Phencyclidine Scrn Presumptive negative 03/29/19 23:10 Ur Amphetamines Screen Presumptive negative 03/29/19 23:10 U Benzodiazepines Scrn Presumptive negative 03/29/19 23:10 Presumptive negative 03/29/19 23:10 U Marijuana (THC) Screen Presumptive negative 03/29/19 23:10 Disclamer 03/29/19 23:10 Heparin-induced Plt Ab Negative (Negative) 03/31/19 15:00 UF Heparin High Dose 0 % Release 03/31/19 15:00 FABIAN UFH Low Dose 0.1 0 % Release 03/31/19 15:00 FABIAN UFH Low Dose 0.5 0 % Release 03/31/19 15:00 Hepatitis A IgM Ab Non-reactive (NonReactive) 03/30/19 Unknown Hep Bs Antigen Non-reactive (Negative) 03/30/19 Unknown Hep B Core IgM Ab Non-reactive (NonReactive) 03/30/19 Unknown Non-reactive (NonReactive) 03/30/19 Unknown Flexitest 1 H 03/30/19 14:00 Blood Type O POSITIVE 03/30/19 03:30 Antibody Screen Negative 03/30/19 03:30 Crossmatch See Detail 03/30/19 03:30 Active Medications - Current Medications Current Medications: Generic Name Dose Route Start Last Admin Trade Name Goyo PRN Reason Stop Dose Admin Acetaminophen 650 mg 03/29/19 23:34 04/01/19 23:38 Tylenol PO 650 mg Q4H PRN Administration Pain MILD(1-3)/Fever >100.5/WARE Lipase/Protease/Amylase 1 each 04/02/19 11:[address] 10,500 Unit FEEDTUBE PRN PRN For Clogged Feeding Tube Dextrose 0 ml 03/29/19 20:33 03/31/19 02:15 D50w (25gm) Syringe IV 10 ml PRN PRN Administration Hypoglycemia Famotidine 20 mg 04/02/19 10:00 04/04/19 21:34 Pepcid PO 20 mg BID ZAMZAM Administration Fentanyl 50 mcg 03/30/19 11:24 Sublimaze IV Q10MIN PRN ANALGESIA Hydrophilic Ointment 1 applic 03/30/19 11:24 Vaseline Lip Therapy TP Q2HR PRN Dry Lips Norepinephrine 4 mg in 250 mls @ 7.5 mls/hr 03/29/19 21:00 04/01/19 19:00 Levophed Drip 4 Mg/Ns 250 Ml IV 0 mcg/min TITR ZAMZAM 0 mls/hr Titration Protocol 2 MCG/MIN Vasopressin 20 unit/ Sodium 101 mls @ 9.09 mls/hr 03/29/19 23:45 04/02/19 07:45 Chloride IV 0 units/min TITR ZAMZAM 0 mls/hr Titration Protocol 0.03 UNITS/MIN Phenylephrine HCl 100 mg/ 100 mls @ 3 mls/hr 03/30/19 01:15 03/30/19 15:15 Sodium Chloride IV 0 mcg/min TITR ZAMZAM 0 mls/hr Titration Protocol 50 MCG/MIN Fentanyl Citrate 2,000 mcg in 100 mls @ 2.2 mls/hr 03/30/19 12:00 04/05/19 06:01 Fentanyl Drip Premix IV 2 mcg/kg/hr TITR ZAMZAM 4.4 mls/hr Administration Protocol 1 MCG/KG/HR Metronidazole 500 mg in 100 mls @ 100 mls/hr 03/30/19 14:00 04/05/19 05:32 Flagyl 500 Mg/100 Ml IV 04/06/19 23:59 100 mls/hr Q8HR ZAMZAM Administration Midazolam HCl 100 mg/ Sodium 100 mls @ 2 mls/hr 03/30/19 14:00 Chloride IV TITR ZAMZAM Protocol 2 MG/HR Cefepime HCl 2 gm in 100 mls @ 200 mls/hr 03/31/19 14:00 04/05/19 05:32 Maxipime/Ns 2 Gm/100 Ml IV 04/06/19 23:59 200 mls/hr Q8HR ZAMZAM Administration Insulin Glargine 5 units 04/02/19 22:00 04/04/19 21:34 Lantus SUB-Q 5 units QHS ZAMZAM Administration Insulin Human Regular 0 units 04/01/19 19:00 04/05/19 06:52 Humulin R SUB-Q 4 units Q4H ZAMZAM Administration Protocol Levetiracetam 500 mg 04/03/19 10:00 04/04/19 21:34 Keppra PO 500 mg BID ZAMZAM Administration Midazolam HCl 2 mg 03/30/19 13:14 Versed IV Q10MIN PRN Sedation Multi-Ingred Cream/Lotion/Oil/Oint 1 applic 03/30/19 11:24 03/31/19 04:28 Artificial Tears Ophth Oint OU 1 applic Q4HR PRN Administration Dry Eye(s) Ondansetron HCl 4 mg 03/29/19 23:34 Zofran IV Q8H PRN Nausea And Vomiting Simple Syrup 15 ml 04/02/19 11:44 Simple Syrup FEEDTUBE PRN PRN Hypoglycemia Simple Syrup 30 ml 04/02/19 11:44 Simple Syrup FEEDTUBE PRN PRN Hypoglycemia Sodium Bicarbonate 325 mg 04/02/19 11:44 Sodium Bicarbonate FEEDTUBE PRN PRN For Clogged Feeding Tube Sodium Chloride 10 ml 03/30/19 10:00 04/05/19 07:56 Sodium Chloride Flush Syringe 10 Ml IV Not Given BID ZAMZAM Sodium Chloride 10 ml 03/29/19 23:34 Sodium Chloride Flush Syringe 10 Ml IV PRN PRN LINE FLUSH Nutrition/Malnutrition Assess - Dietary Evaluation Nutrition/Malnutrition Findings: Nutrition Notes Start: 03/30/19 13:14 Freq: Status: Active Protocol: Document 04/04/19 10:13 LM (Rec: 04/04/19 10:17 [facility]-[id number]) Nutrition Notes Initial or Follow up Reassessment Current Diagnosis Diabetes,Sepsis,Respiratory Failure Other Pertinent Diagnosis s/p cardiac arrest, DKA, ARF, Shock liver Current Diet NPO Labs/Tests POC glu 131 Pertinent Medications Reviewed Height 5 ft Weight 52.2 kg Notus Body Weight (kg) 45.45 BMI 22.4 Weight change and time frame Wt change possibly due to edema in both arms. Subjective/Other Information Glucerna running at 50 ml/hr. Pt on vent and tolerating TF. Burn Absent Trauma Absent #1 Nutrition Diagnosis Inadequate oral intake Diagnosis Progress(for reassessment Continues documentation) Is patient on ventilator? Yes Is Patient Ambulatory and/or Out of Bed No REE-([facility]-confined to bed) 1392.552 Calculation Used for Recommendations [facility] Additional Notes Pro needs 1.2-2g/k-104g/ day Fluid needs 1ml/kcal Nutrition Intervention Change Diet Order: Continue TF Nutrition Support: Glucerna 1.2 at 50ml/hr with 80ml water flush q4h. Kcal 1,440 Protein (gm) 72 Fluid (mL) 966 Goal #1 Meet at least 75% of energy and protein needs Follow-Up By: 04/11/19 Additional Comments F/U for TF tolerance/rate
[2019-04-05] MEDS: KEPPRA PO SCH ×2 (10:17→23:19)
[2019-04-05] MEDS: PEPCID PO SCH ×2 (10:17→23:30)
--- NOTE | 2019-04-05 10:54 | Progress Note ---
Assessment and Plan Acute hypoxemic respiratory failure, on MVS Acute toxic metabolic encephalopathy; MRI consistent with diffuse anoxic injury Diabetic ketoacidosis. Severe sepsis with shock. Possible aspiration pneumonia. History of polysubstance abuse. Leukocytosis. Elevated serum transaminases, possible shock liver. Hyponatremia related to her severe hyperglycemia. Anemia that is macrocytic. History of seizure disorder. Severe metabolic acidosis. Acute kidney injury, possibly on chronic - transfuse PRBC's prn to keep Hb >/= 7.0 g/dl - continue daily SBT assessments as tolerated - continue enteral nutrition with glucerna and adjust rate per local driver - continue bronchodilators with pulmonary hygiene per RT - VAP bundle addressed - continue to wean supplemental O2 to keep O2 sats > 90% - VTE prophylaxis-SCDs - Stress ulcer prophylaxis - continue accuchecks with glycemic control per SSI for target blood glucose 140-180 mg/dL - continue empiric antibiotics; de-escalate per ID rec's and based on clinical and microbiologic data - continue Keppra for seizures - continue mobility protocols / off loading for pressure ulcer prevention - Critical care bundles addressed - continue other care per attending / other consultants CONDITION: CRITICAL PROGNOSIS: GUARDED TO GRAVE CODE STATUS: FULL CODE The high probability of a clinically significant, sudden or life threatening deterioration of the [Neurology Respiratory, Cardiovascular] system(s) required my full and direct attention, intervention and personal management. The aggregate critical care time was [31] minutes. This time is in addition to time spent performing reported procedures but includes the following: [x] Data Review and interpretation [x] Patient assessment and monitoring of vital signs [x] Documentation [x] Medication orders and management Subjective Date of service: 04/05/19 Principal diagnosis: Ac Hypoxemic Resp Failure; DKA; Severe sepsis with shock; ANGELICA Interval history: Patient is seen today for: Acute Hypoxemic Resp Failure; Ac toxic metabolic encephalopathy; DKA; Severe sepsis with shock; Possible aspiration pneumonia; History of polysubstance abuse; History of seizure disorder; Acute kidney injury, possibly on chronic Seen and examined at bedside; 24hour events reviewed; nursing and respiratory care staff consulted; no adverse overnight events reported to me; resting peacefully in bed; AMS is persistent; remains off vasopressor but on MVS; no em esis or overt aspiration and no high grade fevers Vitals, labs,medications, chart reviewed. Discussed in ICU-IDT Objective Vital Signs - 12hr 04/04/19 04/04/19 04/04/19 23:00 23:08 23:45 Temperature Pulse Rate 109 H 109 H 112 H Pulse Rate [ From Monitor] Respiratory 20 11 L Rate Blood Pressure 104/61 104/61 104/61 O2 Sat by Pulse 98 98 Oximetry 04/05/19 04/05/19 04/05/19 00:00 01:00 02:00 Temperature 97.7 F Pulse Rate 114 H 111 H 116 H Pulse Rate [ 113 H From Monitor] Respiratory 11 L 11 L 14 Rate Blood Pressure 102/59 108/62 104/55 O2 Sat by Pulse 96 97 95 Oximetry 04/05/19 04/05/19 04/05/19 03:00 03:30 04:00 Temperature 98.0 F Pulse Rate 109 H 107 H 105 H Pulse Rate [ 105 H From Monitor] Respiratory 15 13 Rate Blood Pressure 98/55 98/55 105/63 O2 Sat by Pulse 99 99 Oximetry 04/05/19 04/05/19 04/05/19 05:00 06:00 07:00 Temperature Pulse Rate 106 H 107 H 105 H Pulse Rate [ From Monitor] Respiratory 14 13 13 Rate Blood Pressure 104/62 101/59 94/59 O2 Sat by Pulse 97 Oximetry 04/05/19 04/05/19 08:00 10:15 Temperature 99.1 F Pulse Rate 104 H 108 H Pulse Rate [ 104 H From Monitor] Respiratory 11 L Rate Blood Pressure 99/63 95/62 O2 Sat by Pulse 100 98 Oximetry Constitutional: no acute distress, other (young CF normocephalic and atraumatic on MVS) Eyes: non-icteric ENT: oropharynx moist, other (ETT 22-23 cm Jessi) Neck: supple, no lymphadenopathy, no JVD Effort: mildly labored Ascultation: Bilateral: rhonchi Percussion: Bilateral: not dull Cardiovascular: regular rate and rhythm, other (sinus tachycardia) Gastrointestinal: normoactive bowel sounds, soft, non-tender Integumentary: erythema (noted on upper extremity) Extremities: no cyanosis, pink and warm, pulses normal, no ischemia or petechiae, edema (trace to 1+) Neurologic: unable to assess (remains unresponsive, opens eyes on suctioning, not obeying commands) Psychiatric: other (unable to assess) CBC and BMP: 04/09/19 05:35 04/09/19 05:35 ABG, PT/INR, D-dimer: ABG POC ABG pH 7.374 (7.35-7.45) 04/04/19 03:46 ABG pH 7.396 pH Units (7.350-7.450) 04/03/19 05:35 POC ABG pCO2 36.2 (35-45) 04/04/19 03:46 ABG pCO2 32.2 mm Hg 04/03/19 05:35 POC ABG pO2 96 (80-105) 04/04/19 03:46 ABG pO2 97.7 mm Hg (80.0-90.0) H 04/03/19 05:35 POC ABG HCO3 21.2 (22-26 mml/L) 04/04/19 03:46 POC ABG Total CO2 22 (23-27mmol/L) 04/04/19 03:46 POC ABG O2 Sat 97 04/04/19 03:46 ABG O2 Saturation 97.6 % (95.0-99.0) 04/03/19 05:35 PT/INR, D-dimer PT 13.9 Sec. (12.2-14.9) 04/01/19 17:14 INR 1.10 (0.87-1.13) 04/01/19 17:14 5203.68 ng/mlDDU (0-234) H 04/01/19 17:14 Abnormal lab findings: Abnormal Labs 03/29/19 03/29/19 03/29/19 19:11 19:20 19:20 WBC 26.7 H RBC 2.52 L Hgb 8.1 L Hct MCV 148 H MCH MCHC 22 L RDW 18.5 H Plt Count Smith % (Auto) Lymph # Seg Neuts % (Manual) 82.0 H Lymphocytes % (Manual) 7.0 L Nucleated RBC % Seg Neutrophils # Man 21.9 H Lymphocytes # (Manual) Monocytes # (Manual) 1.9 H PT 21.8 H INR 1.95 H APTT 74.5 H* D-Dimer POC ABG pH ABG pH POC ABG pO2 ABG pO2 ABG HCO3 ABG O2 Saturation ABG Base Excess ABG Hemoglobin VBG pH Oxyhemoglobin Sodium Potassium Chloride Carbon Dioxide BUN Creatinine Glucose POC Glucose > 500 H Lactic Acid Calcium Phosphorus Magnesium Iron TIBC Direct Bilirubin AST ALT Alkaline Phosphatase Total Creatine Kinase CK-MB (CK-2) C-Reactive Protein Total Protein Albumin Vitamin B12 Salicylates Acetaminophen Miscellaneous Test Crossmatch 03/29/19 03/29/19 03/29/19 19:20 19:47 20:59 WBC RBC Hgb Hct MCV MCH MCHC RDW Plt Count Smith % (Auto) Lymph # Seg Neuts % (Manual) Lymphocytes % (Manual) Nucleated RBC % Seg Neutrophils # Man Lymphocytes # (Manual) Monocytes # (Manual) PT INR APTT D-Dimer POC ABG pH 6.892 L ABG pH POC ABG pO2 236 H ABG pO2 ABG HCO3 ABG O2 Saturation ABG Base Excess ABG Hemoglobin VBG pH 6.800 L* Oxyhemoglobin Sodium 118 L* Potassium 9.0 H* Chloride 64.5 L Carbon Dioxide 7 L* BUN 53 H Creatinine 2.1 H Glucose 2196 H* POC Glucose Lactic Acid Calcium 12.4 H* Phosphorus Magnesium Iron TIBC Direct Bilirubin AST 3900 H ALT 1034 H Alkaline Phosphatase 316 H Total Creatine Kinase CK-MB (CK-2) C-Reactive Protein Total Protein 5.1 L Albumin 2.8 L Vitamin B12 Salicylates Acetaminophen Miscellaneous Test Crossmatch 03/29/19 03/29/19 03/29/19 22:45 22:45 22:45 WBC RBC Hgb Hct MCV MCH MCHC RDW Plt Count Smith % (Auto) Lymph # Seg Neuts % (Manual) Lymphocytes % (Manual) Nucleated RBC % Seg Neutrophils # Man Lymphocytes # (Manual) Monocytes # (Manual) PT INR APTT D-Dimer POC ABG pH ABG pH POC ABG pO2 ABG pO2 ABG HCO3 ABG O2 Saturation ABG Base Excess ABG Hemoglobin VBG pH Oxyhemoglobin Sodium 132 L D Potassium 7.0 H* Chloride 84.3 L Carbon Dioxide 3 L* BUN 48 H Creatinine 1.8 H Glucose 1779 H* POC Glucose Lactic Acid Calcium Phosphorus 21.70 H Magnesium 4.70 H Iron TIBC Direct Bilirubin AST ALT Alkaline Phosphatase Total Creatine Kinase 363 H CK-MB (CK-2) C-Reactive Protein Total Protein Albumin Vitamin B12 Salicylates Acetaminophen Miscellaneous Test Crossmatch 03/29/19 03/29/19 03/30/19 Unknown Unknown 00:11 WBC RBC Hgb Hct MCV MCH MCHC RDW Plt Count [place] % (Auto) Lymph # Seg Neuts % (Manual) Lymphocytes % (Manual) Nucleated RBC % Seg Neutrophils # Man Lymphocytes # (Manual) Monocytes # (Manual) PT INR APTT D-Dimer POC ABG pH ABG pH POC ABG pO2 ABG pO2 ABG HCO3 ABG O2 Saturation ABG Base Excess ABG Hemoglobin VBG pH Oxyhemoglobin Sodium 122 L Potassium 7.9 H* 6.4 H* Chloride 75.3 L 89.7 L Carbon Dioxide 3 L* 12 L D BUN 52 H 46 H Creatinine 2.0 H 1.7 H Glucose 2043 H* 1591 H* POC Glucose Lactic Acid Calcium 7.8 L Phosphorus 19.30 H Magnesium 3.90 H Iron TIBC Direct Bilirubin AST ALT Alkaline Phosphatase Total Creatine Kinase CK-MB (CK-2) C-Reactive Protein Total Protein Albumin Vitamin B12 Salicylates Acetaminophen Miscellaneous Test Crossmatch 03/30/19 03/30/19 03/30/19 00:11 02:14 02:14 WBC RBC Hgb Hct MCV MCH MCHC RDW Plt Count [place] % (Auto) Lymph # Seg Neuts % (Manual) Lymphocytes % (Manual) Nucleated RBC % Seg Neutrophils # Man Lymphocytes # (Manual) Monocytes # (Manual) PT INR APTT D-Dimer POC ABG pH ABG pH POC ABG pO2 ABG pO2 ABG HCO3 ABG O2 Saturation ABG Base Excess ABG Hemoglobin VBG pH Oxyhemoglobin Sodium Potassium Chloride Carbon Dioxide 9 L* BUN 45 H Creatinine 1.7 H Glucose 1155 H* POC Glucose Lactic Acid Calcium 7.9 L Phosphorus 10.90 H D 5.30 H D Magnesium 3.10 H 2.90 H Iron TIBC Direct Bilirubin AST ALT Alkaline Phosphatase Total Creatine Kinase CK-MB (CK-2) C-Reactive Protein Total Protein Albumin Vitamin B12 Salicylates Acetaminophen Miscellaneous Test Crossmatch 03/30/19 03/30/19 03/30/19 03:15 03:30 04:23 WBC 18.0 H RBC 2.31 L Hgb 7.3 L Hct 23.8 L D MCV 103 H MCH MCHC RDW 17.1 H Plt Count Smith % (Auto) Lymph # Seg Neuts % (Manual) 79.0 H Lymphocytes % (Manual) Nucleated RBC % Seg Neutrophils # Man 14.2 H Lymphocytes # (Manual) Monocytes # (Manual) PT INR APTT D-Dimer POC ABG pH 7.251 L ABG pH POC ABG pO2 156 H ABG pO2 ABG HCO3 ABG O2 Saturation ABG Base Excess ABG Hemoglobin VBG pH Oxyhemoglobin Sodium Potassium Chloride Carbon Dioxide BUN Creatinine Glucose POC Glucose Lactic Acid Calcium Phosphorus Magnesium Iron TIBC Direct Bilirubin AST ALT Alkaline Phosphatase Total Creatine Kinase CK-MB (CK-2) C-Reactive Protein Total Protein Albumin Vitamin B12 Salicylates Acetaminophen Miscellaneous Test Crossmatch See Detail 03/30/19 03/30/19 03/30/19 05:26 05:26 10:38 WBC RBC Hgb Hct MCV MCH MCHC RDW Plt Count [place] % (Auto) Lymph # Seg Neuts % (Manual) Lymphocytes % (Manual) Nucleated RBC % Seg Neutrophils # Man Lymphocytes # (Manual) Monocytes # (Manual) PT INR APTT D-Dimer POC ABG pH ABG pH POC ABG pO2 ABG pO2 ABG HCO3 ABG O2 Saturation ABG Base Excess ABG Hemoglobin VBG pH Oxyhemoglobin Sodium 158 H D Potassium 3.5 L Chloride 109.3 H Carbon Dioxide 19 L D BUN 40 H Creatinine 1.5 H Glucose 760 H* POC Glucose 380 H Lactic Acid Calcium 7.3 L Phosphorus Magnesium 2.60 H Iron TIBC Direct [place] 40588 H ALT 2156 H Alkaline Phosphatase 271 H Total Creatine Kinase 2465 H CK-MB (CK-2) 52.7 H C-Reactive Protein Total Protein 4.5 L Albumin 2.4 L Vitamin B12 Salicylates Acetaminophen Miscellaneous Test Crossmatch 03/30/19 03/30/19 03/30/19 11:08 12:25 12:57 WBC RBC Hgb Hct MCV MCH MCHC RDW Plt Count [place] % (Auto) Lymph # Seg Neuts % (Manual) Lymphocytes % (Manual) Nucleated RBC % Seg Neutrophils # Man Lymphocytes # (Manual) Monocytes # (Manual) PT INR APTT D-Dimer POC ABG pH ABG pH POC ABG pO2 ABG pO2 ABG HCO3 ABG O2 Saturation ABG Base Excess ABG Hemoglobin VBG pH Oxyhemoglobin Sodium 156 H Potassium 3.2 L Chloride 116.4 H Carbon Dioxide 21 L BUN 37 H Creatinine Glucose 162 H POC Glucose 263 H 196 H Lactic Acid Calcium 7.2 L Phosphorus Magnesium Iron TIBC Direct Bilirubin AST ALT Alkaline Phosphatase Total Creatine Kinase CK-MB (CK-2) C-Reactive Protein Total Protein Albumin Vitamin B12 Salicylates Acetaminophen Miscellaneous Test Crossmatch 03/30/19 03/30/19 03/30/19 12:57 12:57 12:57 WBC RBC Hgb Hct MCV MCH MCHC RDW Plt Count [place] % (Auto) Lymph # Seg Neuts % (Manual) Lymphocytes % (Manual) Nucleated RBC % Seg Neutrophils # Man Lymphocytes # (Manual) Monocytes # (Manual) PT 21.0 H INR 1.86 H APTT D-Dimer POC ABG pH ABG pH POC ABG pO2 ABG pO2 ABG HCO3 ABG O2 Saturation ABG Base Excess ABG Hemoglobin VBG pH Oxyhemoglobin Sodium Potassium Chloride Carbon Dioxide BUN Creatinine Glucose POC Glucose Lactic Acid 9.00 H* Calcium Phosphorus Magnesium Iron TIBC Direct Bilirubin AST ALT Alkaline Phosphatase Total Creatine Kinase CK-MB (CK-2) C-Reactive Protein 2.40 H Total Protein Albumin Vitamin B12 Salicylates Acetaminophen Miscellaneous Test Crossmatch 03/30/19 03/30/19 03/30/19 13:23 14:00 14:47 WBC RBC Hgb Hct MCV MCH MCHC RDW Plt Count [place] % (Auto) Lymph # Seg Neuts % (Manual) Lymphocytes % (Manual) Nucleated RBC % Seg Neutrophils # Man Lymphocytes # (Manual) Monocytes # (Manual) PT INR APTT D-Dimer POC ABG pH ABG pH POC ABG pO2 ABG pO2 ABG HCO3 ABG O2 Saturation ABG Base Excess ABG Hemoglobin VBG pH Oxyhemoglobin Sodium Potassium Chloride Carbon Dioxide BUN Creatinine Glucose POC Glucose 176 H 245 H Lactic Acid Calcium Phosphorus Magnesium Iron TIBC Direct Bilirubin AST ALT Alkaline Phosphatase Total Creatine Kinase CK-MB (CK-2) C-Reactive Protein Total Protein Albumin Vitamin B12 Salicylates Acetaminophen Miscellaneous Test Flexitest 1 H Crossmatch 03/30/19 03/30/19 03/30/19 16:11 17:11 17:46 WBC RBC Hgb Hct MCV MCH MCHC RDW Plt Count [place] % (Auto) Lymph # Seg Neuts % (Manual) Lymphocytes % (Manual) Nucleated RBC % Seg Neutrophils # Man Lymphocytes # (Manual) Monocytes # (Manual) PT INR APTT D-Dimer POC ABG pH ABG pH POC ABG pO2 ABG pO2 ABG HCO3 ABG O2 Saturation ABG Base Excess ABG Hemoglobin VBG pH Oxyhemoglobin Sodium Potassium Chloride Carbon Dioxide BUN Creatinine Glucose POC Glucose 181 H 167 H 125 H Lactic Acid Calcium Phosphorus Magnesium Iron TIBC Direct Bilirubin AST ALT Alkaline Phosphatase Total Creatine Kinase CK-MB (CK-2) C-Reactive Protein Total Protein Albumin Vitamin B12 Salicylates Acetaminophen Miscellaneous Test Crossmatch 03/30/19 03/30/19 03/30/19 18:59 21:31 22:19 WBC RBC Hgb Hct MCV MCH MCHC RDW Plt Count [place] % (Auto) Lymph # Seg Neuts % (Manual) Lymphocytes % (Manual) Nucleated RBC % Seg Neutrophils # Man Lymphocytes # (Manual) Monocytes # (Manual) PT INR APTT D-Dimer POC ABG pH ABG pH POC ABG pO2 ABG pO2 ABG HCO3 ABG O2 Saturation ABG Base Excess ABG Hemoglobin VBG pH Oxyhemoglobin Sodium Potassium Chloride Carbon Dioxide BUN Creatinine Glucose POC Glucose 140 H 166 H 115 H Lactic Acid Calcium Phosphorus Magnesium Iron TIBC Direct Bilirubin AST ALT Alkaline Phosphatase Total Creatine Kinase CK-MB (CK-2) C-Reactive Protein Total Protein Albumin Vitamin B12 Salicylates Acetaminophen Miscellaneous Test Crossmatch 03/30/19 03/30/19 03/30/19 23:13 Unknown Unknown WBC RBC Hgb Hct MCV MCH MCHC RDW Plt Count [place] % (Auto) Lymph # Seg Neuts % (Manual) Lymphocytes % (Manual) Nucleated RBC % Seg Neutrophils # Man Lymphocytes # (Manual) Monocytes # (Manual) PT INR APTT D-Dimer POC ABG pH ABG pH POC ABG pO2 ABG pO2 47.8 L ABG HCO3 18.8 L ABG O2 Saturation 83.8 L ABG Base Excess -5.4 L ABG Hemoglobin 6.8 L VBG pH Oxyhemoglobin 81.8 L Sodium 157 H Potassium 3.3 L Chloride 117.9 H Carbon Dioxide 20 L BUN 36 H Creatinine Glucose 150 H POC Glucose 112 H Lactic Acid Calcium 7.2 L Phosphorus Magnesium Iron TIBC Direct Bilirubin AST ALT Alkaline Phosphatase Total Creatine Kinase CK-MB (CK-2) C-Reactive Protein Total Protein Albumin Vitamin B12 Salicylates Acetaminophen Miscellaneous Test Crossmatch 03/30/19 03/30/19 03/31/19 Unknown Unknown 00:03 WBC RBC Hgb Hct MCV MCH MCHC RDW Plt Count [place] % (Auto) Lymph # Seg Neuts % (Manual) Lymphocytes % (Manual) Nucleated RBC % Seg Neutrophils # Man Lymphocytes # (Manual) Monocytes # (Manual) PT INR APTT D-Dimer POC ABG pH ABG pH POC ABG pO2 ABG pO2 ABG HCO3 ABG O2 Saturation ABG Base Excess ABG Hemoglobin VBG pH Oxyhemoglobin Sodium Potassium Chloride Carbon Dioxide BUN Creatinine Glucose POC Glucose 188 H Lactic Acid Calcium Phosphorus Magnesium Iron TIBC Direct Bilirubin AST ALT Alkaline Phosphatase Total Creatine Kinase CK-MB (CK-2) C-Reactive Protein Total Protein Albumin Vitamin B12 Salicylates 0.8 L Acetaminophen < 5.0 L Miscellaneous Test Crossmatch 03/31/19 03/31/19 03/31/19 01:18 03:07 03:50 WBC RBC Hgb Hct MCV MCH MCHC RDW Plt Count Smith % (Auto) Lymph # Seg Neuts % (Manual) Lymphocytes % (Manual) Nucleated RBC % Seg Neutrophils # Man Lymphocytes # (Manual) Monocytes # (Manual) PT INR APTT D-Dimer POC ABG pH ABG pH 7.525 H POC ABG pO2 ABG pO2 178.0 H ABG HCO3 19.5 L ABG O2 Saturation 99.2 H ABG Base Excess -3.1 L ABG Hemoglobin 5.8 L VBG pH Oxyhemoglobin Sodium Potassium Chloride Carbon Dioxide BUN Creatinine Glucose POC Glucose 114 H 107 H Lactic Acid Calcium Phosphorus Magnesium Iron TIBC Direct Bilirubin AST ALT Alkaline Phosphatase Total Creatine Kinase CK-MB (CK-2) C-Reactive Protein Total Protein Albumin Vitamin B12 Salicylates Acetaminophen Miscellaneous Test Crossmatch 03/31/19 03/31/19 03/31/19 03:51 03:51 04:05 WBC RBC 1.89 L Hgb 6.1 L Hct 18.2 L* MCV MCH MCHC RDW 17.7 H Plt Count 89 L Smith % (Auto) Lymph # Seg Neuts % (Manual) 86.0 H Lymphocytes % (Manual) 10.0 L Nucleated RBC % 1.0 H Seg Neutrophils # Man Lymphocytes # (Manual) 0.7 L Monocytes # (Manual) PT INR APTT D-Dimer POC ABG pH ABG pH POC ABG pO2 ABG pO2 ABG HCO3 ABG O2 Saturation ABG Base Excess ABG Hemoglobin VBG pH Oxyhemoglobin Sodium 151 H Potassium 3.2 L Chloride 119.4 H Carbon Dioxide 17 L BUN 35 H Creatinine Glucose 139 H POC Glucose 153 H Lactic Acid Calcium 7.1 L Phosphorus Magnesium Iron TIBC Direct Bilirubin AST ALT Alkaline Phosphatase Total Creatine Kinase CK-MB (CK-2) C-Reactive Protein Total Protein Albumin Vitamin B12 Salicylates Acetaminophen Miscellaneous Test Crossmatch 03/31/19 03/31/19 03/31/19 05:05 05:35 06:23 WBC RBC Hgb Hct MCV MCH MCHC RDW Plt Count [place] % (Auto) Lymph # Seg Neuts % (Manual) Lymphocytes % (Manual) Nucleated RBC % Seg Neutrophils # Man Lymphocytes # (Manual) Monocytes # (Manual) PT INR APTT D-Dimer POC ABG pH ABG pH POC ABG pO2 ABG pO2 ABG HCO3 ABG O2 Saturation ABG Base Excess ABG Hemoglobin VBG pH Oxyhemoglobin Sodium Potassium Chloride Carbon Dioxide BUN Creatinine Glucose POC Glucose 176 H 133 H Lactic Acid 3.20 H* Calcium Phosphorus Magnesium Iron TIBC Direct Bilirubin AST ALT Alkaline Phosphatase Total Creatine Kinase CK-MB (CK-2) C-Reactive Protein Total Protein Albumin Vitamin B12 Salicylates Acetaminophen Miscellaneous Test Crossmatch 03/31/19 03/31/19 03/31/19 07:50 07:51 08:20 WBC RBC Hgb Hct MCV MCH MCHC RDW Plt Count [place] % (Auto) Lymph # Seg Neuts % (Manual) Lymphocytes % (Manual) Nucleated RBC % Seg Neutrophils # Man Lymphocytes # (Manual) Monocytes # (Manual) PT INR APTT D-Dimer POC ABG pH ABG pH POC ABG pO2 ABG pO2 ABG HCO3 ABG O2 Saturation ABG Base Excess ABG Hemoglobin VBG pH Oxyhemoglobin Sodium Potassium Chloride Carbon Dioxide BUN Creatinine Glucose POC Glucose 135 H Lactic Acid 3.30 H* Calcium Phosphorus Magnesium Iron 26 L TIBC 193 L Direct Bilirubin AST ALT Alkaline Phosphatase Total Creatine Kinase CK-MB (CK-2) C-Reactive Protein Total Protein Albumin Vitamin B12 Salicylates Acetaminophen Miscellaneous Test Crossmatch 03/31/19 03/31/19 03/31/19 08:20 08:20 09:06 WBC RBC Hgb Hct MCV MCH MCHC RDW Plt Count [place] % (Auto) Lymph # Seg Neuts % (Manual) Lymphocytes % (Manual) Nucleated RBC % Seg Neutrophils # Man Lymphocytes # (Manual) Monocytes # (Manual) PT INR APTT D-Dimer POC ABG pH ABG pH POC ABG pO2 ABG pO2 ABG HCO3 ABG O2 Saturation ABG Base Excess ABG Hemoglobin VBG pH Oxyhemoglobin Sodium 153 H Potassium 3.0 L Chloride 118.9 H Carbon Dioxide 18 L BUN 37 H Creatinine Glucose 132 H POC Glucose 145 H Lactic Acid Calcium 7.1 L Phosphorus Magnesium Iron TIBC Direct Bilirubin AST ALT Alkaline Phosphatase Total Creatine Kinase CK-MB (CK-2) C-Reactive Protein Total Protein Albumin Vitamin B12 > 2000 H Salicylates Acetaminophen Miscellaneous Test Crossmatch 03/31/19 03/31/19 03/31/19 10:47 11:49 13:04 WBC RBC Hgb Hct MCV MCH MCHC RDW Plt Count [place] % (Auto) Lymph # Seg Neuts % (Manual) Lymphocytes % (Manual) Nucleated RBC % Seg Neutrophils # Man Lymphocytes # (Manual) Monocytes # (Manual) PT INR APTT D-Dimer POC ABG pH ABG pH POC ABG pO2 ABG pO2 ABG HCO3 ABG O2 Saturation ABG Base Excess ABG Hemoglobin VBG pH Oxyhemoglobin Sodium Potassium Chloride Carbon Dioxide BUN Creatinine Glucose POC Glucose 153 H 174 H 214 H Lactic Acid Calcium Phosphorus Magnesium Iron TIBC Direct Bilirubin AST ALT Alkaline Phosphatase Total Creatine Kinase CK-MB (CK-2) C-Reactive Protein Total Protein Albumin Vitamin B12 Salicylates Acetaminophen Miscellaneous Test Crossmatch 03/31/19 03/31/19 03/31/19 13:42 15:08 16:08 WBC RBC Hgb Hct MCV MCH MCHC RDW Plt Count [place] % (Auto) Lymph # Seg Neuts % (Manual) Lymphocytes % (Manual) Nucleated RBC % Seg Neutrophils # Man Lymphocytes # (Manual) Monocytes # (Manual) PT INR APTT D-Dimer POC ABG pH ABG pH POC ABG pO2 ABG pO2 ABG HCO3 ABG O2 Saturation ABG Base Excess ABG Hemoglobin VBG pH Oxyhemoglobin Sodium Potassium Chloride Carbon Dioxide BUN Creatinine Glucose POC Glucose 186 H 136 H 150 H Lactic Acid Calcium Phosphorus Magnesium Iron TIBC Direct Bilirubin AST ALT Alkaline Phosphatase Total Creatine Kinase CK-MB (CK-2) C-Reactive Protein Total Protein Albumin Vitamin B12 Salicylates Acetaminophen Miscellaneous Test Crossmatch 03/31/19 03/31/19 03/31/19 17:11 17:30 17:30 WBC RBC Hgb 7.7 L Hct 23.0 L MCV MCH MCHC RDW Plt Count [place] % (Auto) Lymph # Seg Neuts % (Manual) Lymphocytes % (Manual) Nucleated RBC % Seg Neutrophils # Man Lymphocytes # (Manual) Monocytes # (Manual) PT INR APTT D-Dimer POC ABG pH ABG pH POC ABG pO2 ABG pO2 ABG HCO3 ABG O2 Saturation ABG Base Excess ABG Hemoglobin VBG pH Oxyhemoglobin Sodium 153 H Potassium 3.5 L Chloride 119.3 H Carbon Dioxide 20 L BUN 34 H Creatinine Glucose 162 H POC Glucose 140 H Lactic Acid Calcium 7.6 L Phosphorus Magnesium Iron TIBC Direct Bilirubin AST ALT Alkaline Phosphatase Total Creatine Kinase CK-MB (CK-2) C-Reactive Protein Total Protein Albumin Vitamin B12 Salicylates Acetaminophen Miscellaneous Test Crossmatch 03/31/19 03/31/19 03/31/19 17:59 18:58 20:28 WBC RBC Hgb Hct MCV MCH MCHC RDW Plt Count [place] % (Auto) Lymph # Seg Neuts % (Manual) Lymphocytes % (Manual) Nucleated RBC % Seg Neutrophils # Man Lymphocytes # (Manual) Monocytes # (Manual) PT INR APTT D-Dimer POC ABG pH ABG pH POC ABG pO2 ABG pO2 ABG HCO3 ABG O2 Saturation ABG Base Excess ABG Hemoglobin VBG pH Oxyhemoglobin Sodium Potassium Chloride Carbon Dioxide BUN Creatinine Glucose POC Glucose 156 H 152 H 138 H Lactic Acid Calcium Phosphorus Magnesium Iron TIBC Direct Bilirubin AST ALT Alkaline Phosphatase Total Creatine Kinase CK-MB (CK-2) C-Reactive Protein Total Protein Albumin Vitamin B12 Salicylates Acetaminophen Miscellaneous Test Crossmatch 03/31/19 03/31/19 03/31/19 21:09 22:15 23:10 WBC RBC Hgb Hct MCV MCH MCHC RDW Plt Count [place] % (Auto) Lymph # Seg Neuts % (Manual) Lymphocytes % (Manual) Nucleated RBC % Seg Neutrophils # Man Lymphocytes # (Manual) Monocytes # (Manual) PT INR APTT D-Dimer POC ABG pH ABG pH POC ABG pO2 ABG pO2 ABG HCO3 ABG O2 Saturation ABG Base Excess ABG Hemoglobin VBG pH Oxyhemoglobin Sodium Potassium Chloride Carbon Dioxide BUN Creatinine Glucose POC Glucose 136 H 137 H 148 H Lactic Acid Calcium Phosphorus Magnesium Iron TIBC Direct Bilirubin AST ALT Alkaline Phosphatase Total Creatine Kinase CK-MB (CK-2) C-Reactive Protein Total Protein Albumin Vitamin B12 Salicylates Acetaminophen Miscellaneous Test Crossmatch 04/01/19 04/01/19 04/01/19 00:05 01:17 02:11 WBC RBC Hgb Hct MCV MCH MCHC RDW Plt Count [place] % (Auto) Lymph # Seg Neuts % (Manual) Lymphocytes % (Manual) Nucleated RBC % Seg Neutrophils # Man Lymphocytes # (Manual) Monocytes # (Manual) PT INR APTT D-Dimer POC ABG pH ABG pH POC ABG pO2 ABG pO2 ABG HCO3 ABG O2 Saturation ABG Base Excess ABG Hemoglobin VBG pH Oxyhemoglobin Sodium Potassium Chloride Carbon Dioxide BUN Creatinine Glucose POC Glucose 143 H 151 H 155 H Lactic Acid Calcium Phosphorus Magnesium Iron TIBC Direct Bilirubin AST ALT Alkaline Phosphatase Total Creatine Kinase CK-MB (CK-2) C-Reactive Protein Total Protein Albumin Vitamin B12 Salicylates Acetaminophen Miscellaneous Test Crossmatch 04/01/19 04/01/19 04/01/19 03:12 04:03 04:16 WBC RBC Hgb Hct MCV MCH MCHC RDW Plt Count [place] % (Auto) Lymph # Seg Neuts % (Manual) Lymphocytes % (Manual) Nucleated RBC % Seg Neutrophils # Man Lymphocytes # (Manual) Monocytes # (Manual) PT INR APTT D-Dimer POC ABG pH ABG pH POC ABG pO2 ABG pO2 ABG HCO3 ABG O2 Saturation ABG Base Excess ABG Hemoglobin VBG pH Oxyhemoglobin Sodium Potassium Chloride Carbon Dioxide BUN Creatinine Glucose POC Glucose 140 H 143 H 142 H Lactic Acid Calcium Phosphorus Magnesium Iron TIBC Direct Bilirubin AST ALT Alkaline Phosphatase Total Creatine Kinase CK-MB (CK-2) C-Reactive Protein Total Protein Albumin Vitamin B12 Salicylates Acetaminophen Miscellaneous Test Crossmatch 04/01/19 04/01/19 04/01/19 05:01 05:01 05:08 WBC RBC 2.05 L Hgb 6.8 L Hct 20.5 L MCV 100 H MCH 33 H MCHC RDW 17.7 H Plt Count 53 L [place] % (Auto) Lymph # Seg Neuts % (Manual) 71.0 H Lymphocytes % (Manual) Nucleated RBC % Seg Neutrophils # Man Lymphocytes # (Manual) Monocytes # (Manual) PT INR APTT D-Dimer POC ABG pH ABG pH POC ABG pO2 ABG pO2 ABG HCO3 ABG O2 Saturation ABG Base Excess ABG Hemoglobin VBG pH Oxyhemoglobin Sodium Potassium Chloride Carbon Dioxide BUN Creatinine Glucose POC Glucose 119 H Lactic Acid Calcium Phosphorus Magnesium Iron TIBC Direct Bilirubin 0.3 H AST 4601 H ALT 1542 H Alkaline Phosphatase 185 H Total Creatine Kinase CK-MB (CK-2) C-Reactive Protein Total Protein 3.8 L Albumin 1.6 L Vitamin B12 Salicylates Acetaminophen Miscellaneous Test Crossmatch 04/01/19 04/01/19 04/01/19 05:23 06:37 08:15 WBC RBC Hgb Hct MCV MCH MCHC RDW Plt Count [place] % (Auto) Lymph # Seg Neuts % (Manual) Lymphocytes % (Manual) Nucleated RBC % Seg Neutrophils # Man Lymphocytes # (Manual) Monocytes # (Manual) PT INR APTT D-Dimer POC ABG pH ABG pH POC ABG pO2 ABG pO2 ABG HCO3 ABG O2 Saturation ABG Base Excess ABG Hemoglobin VBG pH Oxyhemoglobin Sodium Potassium Chloride Carbon Dioxide BUN Creatinine Glucose POC Glucose 115 H 124 H 138 H Lactic Acid Calcium Phosphorus Magnesium Iron TIBC Direct Bilirubin AST ALT Alkaline Phosphatase Total Creatine Kinase CK-MB (CK-2) C-Reactive Protein Total Protein Albumin Vitamin B12 Salicylates Acetaminophen Miscellaneous Test Crossmatch 04/01/19 04/01/19 04/01/19 09:50 10:10 10:31 WBC RBC Hgb 6.5 L Hct 19.2 L* MCV MCH MCHC RDW Plt Count [place] % (Auto) Lymph # Seg Neuts % (Manual) Lymphocytes % (Manual) Nucleated RBC % Seg Neutrophils # Man Lymphocytes # (Manual) Monocytes # (Manual) PT INR APTT D-Dimer POC ABG pH ABG pH POC ABG pO2 ABG pO2 ABG HCO3 ABG O2 Saturation ABG Base Excess ABG Hemoglobin VBG pH Oxyhemoglobin Sodium 149 H Potassium 3.5 L Chloride 119.9 H Carbon Dioxide 21 L BUN 33 H Creatinine 0.5 L Glucose 142 H POC Glucose 185 H Lactic Acid Calcium 7.3 L Phosphorus Magnesium Iron TIBC Direct Bilirubin AST 3686 H ALT 1440 H Alkaline Phosphatase 185 H Total Creatine Kinase CK-MB (CK-2) C-Reactive Protein Total Protein 3.7 L Albumin 1.8 L Vitamin B12 Salicylates Acetaminophen Miscellaneous Test Crossmatch 04/01/19 04/01/19 04/01/19 11:35 13:05 14:35 WBC RBC Hgb Hct MCV MCH MCHC RDW Plt Count [place] % (Auto) Lymph # Seg Neuts % (Manual) Lymphocytes % (Manual) Nucleated RBC % Seg Neutrophils # Man Lymphocytes # (Manual) Monocytes # (Manual) PT INR APTT D-Dimer POC ABG pH ABG pH POC ABG pO2 ABG pO2 ABG HCO3 ABG O2 Saturation ABG Base Excess ABG Hemoglobin VBG pH Oxyhemoglobin Sodium Potassium Chloride Carbon Dioxide BUN Creatinine Glucose POC Glucose 201 H 169 H 134 H Lactic Acid Calcium Phosphorus Magnesium Iron TIBC Direct Bilirubin AST ALT Alkaline Phosphatase Total Creatine Kinase CK-MB (CK-2) C-Reactive Protein Total Protein Albumin Vitamin B12 Salicylates Acetaminophen Miscellaneous Test Crossmatch 04/01/19 04/01/19 04/01/19 17:13 17:14 18:30 WBC RBC Hgb Hct MCV MCH MCHC RDW Plt Count [place] % (Auto) Lymph # Seg Neuts % (Manual) Lymphocytes % (Manual) Nucleated RBC % Seg Neutrophils # Man Lymphocytes # (Manual) Monocytes # (Manual) PT INR APTT D-Dimer 5203.68 H POC ABG pH ABG pH POC ABG pO2 ABG pO2 ABG HCO3 ABG O2 Saturation ABG Base Excess ABG Hemoglobin VBG pH Oxyhemoglobin Sodium Potassium Chloride Carbon Dioxide BUN Creatinine Glucose POC Glucose 69 L 128 H Lactic Acid Calcium Phosphorus Magnesium Iron TIBC Direct Bilirubin AST ALT Alkaline Phosphatase Total Creatine Kinase CK-MB (CK-2) C-Reactive Protein Total Protein Albumin Vitamin B12 Salicylates Acetaminophen Miscellaneous Test Crossmatch 04/01/19 04/01/19 04/02/19 22:50 Unknown 03:40 WBC RBC Hgb Hct MCV MCH MCHC RDW Plt Count [place] % (Auto) Lymph # Seg Neuts % (Manual) Lymphocytes % (Manual) Nucleated RBC % Seg Neutrophils # Man Lymphocytes # (Manual) Monocytes # (Manual) PT INR APTT D-Dimer POC ABG pH ABG pH POC ABG pO2 ABG pO2 78.3 L 142.8 H ABG HCO3 15.5 L ABG O2 Saturation ABG Base Excess -3.5 L -8.2 L ABG Hemoglobin 6.8 L 8.2 L VBG pH Oxyhemoglobin 94.3 L Sodium Potassium Chloride Carbon Dioxide BUN Creatinine Glucose POC Glucose 342 H Lactic Acid Calcium Phosphorus Magnesium Iron TIBC Direct Bilirubin AST ALT Alkaline Phosphatase Total Creatine Kinase CK-MB (CK-2) C-Reactive Protein Total Protein Albumin Vitamin B12 Salicylates Acetaminophen Miscellaneous Test Crossmatch 04/02/19 04/02/19 04/02/19 03:49 06:50 07:48 WBC RBC 2.65 L Hgb 8.6 L Hct 25.1 L MCV MCH MCHC RDW 17.6 H Plt Count 48 L [place] % (Auto) Lymph # Seg Neuts % (Manual) Lymphocytes % (Manual) Nucleated RBC % Seg Neutrophils # Man Lymphocytes # (Manual) Monocytes # (Manual) PT INR APTT D-Dimer POC ABG pH ABG pH POC ABG pO2 ABG pO2 ABG HCO3 ABG O2 Saturation ABG Base Excess ABG Hemoglobin VBG pH Oxyhemoglobin Sodium Potassium Chloride Carbon Dioxide BUN Creatinine Glucose POC Glucose 247 H 200 H Lactic Acid Calcium Phosphorus Magnesium Iron TIBC Direct Bilirubin AST ALT Alkaline Phosphatase Total Creatine Kinase CK-MB (CK-2) C-Reactive Protein Total Protein Albumin Vitamin B12 Salicylates Acetaminophen Miscellaneous Test Crossmatch 04/02/19 04/02/19 04/02/19 07:48 11:18 14:07 WBC RBC Hgb Hct MCV MCH MCHC RDW Plt Count [place] % (Auto) Lymph # Seg Neuts % (Manual) Lymphocytes % (Manual) Nucleated RBC % Seg Neutrophils # Man Lymphocytes # (Manual) Monocytes # (Manual) PT INR APTT D-Dimer POC ABG pH ABG pH POC ABG pO2 ABG pO2 ABG HCO3 ABG O2 Saturation ABG Base Excess ABG Hemoglobin VBG pH Oxyhemoglobin Sodium Potassium 3.5 L Chloride 115.7 H Carbon Dioxide 19 L BUN 29 H Creatinine 0.5 L Glucose 159 H POC Glucose 154 H 149 H Lactic Acid Calcium 7.5 L Phosphorus Magnesium Iron TIBC Direct Bilirubin AST 1418 H ALT 1134 H Alkaline Phosphatase 242 H Total Creatine Kinase CK-MB (CK-2) C-Reactive Protein Total Protein 4.2 L Albumin 2.1 L Vitamin B12 Salicylates Acetaminophen Miscellaneous Test Crossmatch 04/02/19 04/02/19 04/02/19 18:09 19:46 23:05 WBC RBC Hgb Hct MCV MCH MCHC RDW Plt Count [place] % (Auto) Lymph # Seg Neuts % (Manual) Lymphocytes % (Manual) Nucleated RBC % Seg Neutrophils # Man Lymphocytes # (Manual) Monocytes # (Manual) PT INR APTT D-Dimer POC ABG pH ABG pH POC ABG pO2 ABG pO2 ABG HCO3 ABG O2 Saturation ABG Base Excess ABG Hemoglobin VBG pH Oxyhemoglobin Sodium Potassium Chloride Carbon Dioxide BUN Creatinine Glucose POC Glucose 188 H 209 H 247 H Lactic Acid Calcium Phosphorus Magnesium Iron TIBC Direct Bilirubin AST ALT Alkaline Phosphatase Total Creatine Kinase CK-MB (CK-2) C-Reactive Protein Total Protein Albumin Vitamin B12 Salicylates Acetaminophen Miscellaneous Test Crossmatch 04/03/19 04/03/19 04/03/19 02:58 03:40 03:40 WBC RBC 2.87 L Hgb 9.3 L Hct 27.0 L MCV MCH MCHC RDW 17.2 H Plt Count 65 L [place] % (Auto) 9.8 H Lymph # 1.1 L Seg Neuts % (Manual) Lymphocytes % (Manual) Nucleated RBC % Seg Neutrophils # Man Lymphocytes # (Manual) Monocytes # (Manual) PT INR APTT D-Dimer POC ABG pH ABG pH POC ABG pO2 ABG pO2 ABG HCO3 ABG O2 Saturation ABG Base Excess ABG Hemoglobin VBG pH Oxyhemoglobin Sodium 147 H Potassium 3.5 L Chloride 116.7 H Carbon Dioxide 18 L BUN Creatinine 0.4 L Glucose 150 H POC Glucose 166 H Lactic Acid Calcium 8.1 L Phosphorus 2.20 L Magnesium Iron TIBC Direct Bilirubin AST 594 H ALT 861 H Alkaline Phosphatase 299 H Total Creatine Kinase CK-MB (CK-2) C-Reactive Protein Total Protein 4.4 L Albumin 2.1 L Vitamin B12 Salicylates Acetaminophen Miscellaneous Test Crossmatch 04/03/19 04/03/19 04/03/19 05:35 07:02 08:23 WBC RBC Hgb Hct MCV MCH MCHC RDW Plt Count [place] % (Auto) Lymph # Seg Neuts % (Manual) Lymphocytes % (Manual) Nucleated RBC % Seg Neutrophils # Man Lymphocytes # (Manual) Monocytes # (Manual) PT INR APTT D-Dimer POC ABG pH ABG pH POC ABG pO2 ABG pO2 97.7 H ABG HCO3 19.3 L ABG O2 Saturation ABG Base Excess -5.0 L ABG Hemoglobin 8.0 L VBG pH Oxyhemoglobin Sodium Potassium Chloride Carbon Dioxide BUN Creatinine Glucose POC Glucose 135 H 132 H Lactic Acid Calcium Phosphorus Magnesium Iron TIBC Direct Bilirubin AST ALT Alkaline Phosphatase Total Creatine Kinase CK-MB (CK-2) C-Reactive Protein Total Protein Albumin Vitamin B12 Salicylates Acetaminophen Miscellaneous Test Crossmatch 04/03/19 04/03/19 04/03/19 11:58 15:11 17:53 WBC RBC Hgb Hct MCV MCH MCHC RDW Plt Count [place] % (Auto) Lymph # Seg Neuts % (Manual) Lymphocytes % (Manual) Nucleated RBC % Seg Neutrophils # Man Lymphocytes # (Manual) Monocytes # (Manual) PT INR APTT D-Dimer POC ABG pH ABG pH POC ABG pO2 ABG pO2 ABG HCO3 ABG O2 Saturation ABG Base Excess ABG Hemoglobin VBG pH Oxyhemoglobin Sodium Potassium Chloride Carbon Dioxide BUN Creatinine Glucose POC Glucose 179 H 213 H 223 H Lactic Acid Calcium Phosphorus Magnesium Iron TIBC Direct Bilirubin AST ALT Alkaline Phosphatase Total Creatine Kinase CK-MB (CK-2) C-Reactive Protein Total Protein Albumin Vitamin B12 Salicylates Acetaminophen Miscellaneous Test Crossmatch 04/03/19 04/04/19 04/04/19 23:06 02:36 06:41 WBC RBC Hgb Hct MCV MCH MCHC RDW Plt Count [place] % (Auto) Lymph # Seg Neuts % (Manual) Lymphocytes % (Manual) Nucleated RBC % Seg Neutrophils # Man Lymphocytes # (Manual) Monocytes # (Manual) PT INR APTT D-Dimer POC ABG pH ABG pH POC ABG pO2 ABG pO2 ABG HCO3 ABG O2 Saturation ABG Base Excess ABG Hemoglobin VBG pH Oxyhemoglobin Sodium Potassium Chloride Carbon Dioxide BUN Creatinine Glucose POC Glucose 189 H 157 H 131 H Lactic Acid Calcium Phosphorus Magnesium Iron TIBC Direct Bilirubin AST ALT Alkaline Phosphatase Total Creatine Kinase CK-MB (CK-2) C-Reactive Protein Total Protein Albumin Vitamin B12 Salicylates Acetaminophen Miscellaneous Test Crossmatch 04/04/19 04/04/19 04/04/19 11:42 15:45 18:21 WBC RBC Hgb Hct MCV MCH MCHC RDW Plt Count [place] % (Auto) Lymph # Seg Neuts % (Manual) Lymphocytes % (Manual) Nucleated RBC % Seg Neutrophils # Man Lymphocytes # (Manual) Monocytes # (Manual) PT INR APTT D-Dimer POC ABG pH ABG pH POC ABG pO2 ABG pO2 ABG HCO3 ABG O2 Saturation ABG Base Excess ABG Hemoglobin VBG pH Oxyhemoglobin Sodium Potassium Chloride Carbon Dioxide BUN Creatinine Glucose POC Glucose 233 H 236 H 255 H Lactic Acid Calcium Phosphorus Magnesium Iron TIBC Direct Bilirubin AST ALT Alkaline Phosphatase Total Creatine Kinase CK-MB (CK-2) C-Reactive Protein Total Protein Albumin Vitamin B12 Salicylates Acetaminophen Miscellaneous Test Crossmatch 04/04/19 04/05/19 04/05/19 21:21 03:06 06:05 WBC RBC 2.68 L Hgb 8.5 L Hct 26.3 L MCV 98 H MCH MCHC RDW 17.4 H Plt Count [place] % (Auto) Lymph # Seg Neuts % (Manual) Lymphocytes % (Manual) Nucleated RBC % Seg Neutrophils # Man Lymphocytes # (Manual) Monocytes # (Manual) PT INR APTT D-Dimer POC ABG pH ABG pH POC ABG pO2 ABG pO2 ABG HCO3 ABG O2 Saturation ABG Base Excess ABG Hemoglobin VBG pH Oxyhemoglobin Sodium Potassium Chloride Carbon Dioxide BUN Creatinine Glucose POC Glucose 132 H 161 H Lactic Acid Calcium Phosphorus Magnesium Iron TIBC Direct Bilirubin AST ALT Alkaline Phosphatase Total Creatine Kinase CK-MB (CK-2) C-Reactive Protein Total Protein Albumin Vitamin B12 Salicylates Acetaminophen Miscellaneous Test Crossmatch 04/05/19 04/05/19 04/05/19 06:05 06:49 10:23 WBC RBC Hgb Hct MCV MCH MCHC RDW Plt Count [place] % (Auto) Lymph # Seg Neuts % (Manual) Lymphocytes % (Manual) Nucleated RBC % Seg Neutrophils # Man Lymphocytes # (Manual) Monocytes # (Manual) PT INR APTT D-Dimer POC ABG pH ABG pH POC ABG pO2 ABG pO2 ABG HCO3 ABG O2 Saturation ABG Base Excess ABG Hemoglobin VBG pH Oxyhemoglobin Sodium Potassium Chloride 112.5 H Carbon Dioxide BUN Creatinine 0.2 L Glucose 237 H POC Glucose 283 H 296 H Lactic Acid Calcium 7.9 L Phosphorus Magnesium Iron TIBC Direct Bilirubin AST ALT Alkaline Phosphatase Total Creatine Kinase CK-MB (CK-2) C-Reactive Protein Total Protein Albumin Vitamin B12 Salicylates Acetaminophen Miscellaneous Test Crossmatch Allied health notes reviewed: RT
--- NOTE | 2019-04-05 11:38 | Progress Note ---
Assessment and Plan Patient is a 28-year-old woman with history of diabetes, polysubstance abuse, history of seizures. She presented on 03/29/2019 after having a cardiac arrest. The patient was given CPR and return to spontaneous circulation. According the patient's clinical findings, it is likely that she's had anoxic brain injury. Additionally, the patient has a history of seizures, and was noted to have a seizure-like event during this admission. Plan: 1. Anoxic brain injury: - CT head unremarkable - MRI brain showed cortical ribboning, and evidence of diffuse anoxic brain injury. - Continue supportive care per ICU and primary teams - I discussed at length the patient's mother regarding her prognosis and plan of care. The patient's mother stated that the patient had made clear in the past that she did not want to have a tracheostomy or a PEG tube placed in the future if her chance of recovery was minimal, she has had a PEG tube in the past with previous illnesses. I discussed with the mother regarding prognosis, and that at this time it is uncertain as to the extent of neurologic recovery she will have, and the timeline that that recovery will occur within. I further discussed that the patient currently displays evidence of brainstem reflexes which are intact, and that the patient is therefore not brain . Mother is currently out of state, as she lives in [place], and stated that she would like to explore options of transferring patient back to [facility] to be closer to family. - Recommend risk management/ethics team consult for review of plans of care with family, given patient's previous stated directives. 2. History of seizures: - EEG: generalized slowing with low amplitude. No seizures or epileptiform activity. - Continue keppra 3. Aspiration PNA/Acute liver failure/Sepsis/Shock: - Continue supportive care per ICU/ID/primary teams - Will continue to follow patient. - Thank you for allowing me to take part in the care of this patient. Lorenzo Farley MD Neurology Subjective Date of service: 04/05/19 Principal diagnosis: Ac Hypoxemic Resp Failure; DKA; Severe sepsis with shock; ANGELICA Interval history: No acute events overnight. Objective - Exam Narrative Exam: Patient is intubated, comatose. Pupils are equal, round, sluggishly reactive to light. Corneal reflexes are intact. Cough/gag reflexes intact. Patient withdraws to pain in all extremities. Reflexes 3+ throughout. - Vital Sign Vital Signs - 12hr 04/04/19 04/05/19 04/05/19 23:45 00:00 01:00 Temperature 97.7 F Pulse Rate 112 H 114 H 111 H Pulse Rate [ 113 H From Monitor] Respiratory 11 L 11 L 11 L Rate Blood Pressure 104/61 102/59 108/62 O2 Sat by Pulse 98 96 97 Oximetry 04/05/19 04/05/19 04/05/19 02:00 03:00 03:30 Temperature Pulse Rate 116 H 109 H 107 H Pulse Rate [ From Monitor] Respiratory 14 15 Rate Blood Pressure 104/55 98/55 98/55 O2 Sat by Pulse 95 99 Oximetry 04/05/19 04/05/19 04/05/19 04:00 05:00 06:00 Temperature 98.0 F Pulse Rate 105 H 106 H 107 H Pulse Rate [ 105 H From Monitor] Respiratory 13 14 13 Rate Blood Pressure 105/63 104/62 101/59 O2 Sat by Pulse 99 Oximetry 04/05/19 04/05/19 04/05/19 07:00 08:00 09:00 Temperature 99.1 F Pulse Rate 105 H 104 H 108 H Pulse Rate [ 104 H From Monitor] Respiratory 13 11 L 19 Rate Blood Pressure 94/59 99/63 107/66 O2 Sat by Pulse 97 100 Oximetry 04/05/19 04/05/19 04/05/19 10:00 10:15 11:00 Temperature Pulse Rate 108 H 108 H 112 H Pulse Rate [ From Monitor] Respiratory 11 L 14 Rate Blood Pressure 95/62 95/62 103/66 O2 Sat by Pulse 98 Oximetry 04/05/19 11:21 Temperature Pulse Rate 112 H Pulse Rate [ From Monitor] Respiratory Rate Blood Pressure 103/66 O2 Sat by Pulse 97 Oximetry - General Apperance Constitutional: uncomfortable - EENT EENT: ATNC, PERRL, mucous membranes moist - Respiratory Respiratory: decreased breath sounds - Cardiovascular Cardiovascular: regular rate, normal S1, normal S2 Extremities: no clubbing, cyanosis, no inflammation - Gastrointestinal Gastrointestinal: normoactive bowel sounds, soft, non-tender - Integumentary Integumentary: other (wound noted on Upper extremity) - Laboratory Findings CBC and BMP: 04/05/19 06:05 04/05/19 06:05 Abnormal Lab Findings: Abnormal Labs 03/29/19 03/29/19 03/29/19 19:11 19:20 19:20 WBC 26.7 H RBC 2.52 L Hgb 8.1 L Hct MCV 148 H MCH MCHC 22 L RDW 18.5 H Plt Count [place] % (Auto) Lymph # Seg Neuts % (Manual) 82.0 H Lymphocytes % (Manual) 7.0 L Nucleated RBC % Seg Neutrophils # Man 21.9 H Lymphocytes # (Manual) Monocytes # (Manual) 1.9 H PT 21.8 H INR 1.95 H APTT 74.5 H* D-Dimer POC ABG pH ABG pH POC ABG pO2 ABG pO2 ABG HCO3 ABG O2 Saturation ABG Base Excess ABG Hemoglobin VBG pH Oxyhemoglobin Sodium Potassium Chloride Carbon Dioxide BUN Creatinine Glucose POC Glucose > 500 H Lactic Acid Calcium Phosphorus Magnesium Iron TIBC Direct Bilirubin AST ALT Alkaline Phosphatase Total Creatine Kinase CK-MB (CK-2) C-Reactive Protein Total Protein Albumin Vitamin B12 Salicylates Acetaminophen Miscellaneous Test Crossmatch 03/29/19 03/29/19 03/29/19 19:20 19:47 20:59 WBC RBC Hgb Hct MCV MCH MCHC RDW Plt Count [place] % (Auto) Lymph # Seg Neuts % (Manual) Lymphocytes % (Manual) Nucleated RBC % Seg Neutrophils # Man Lymphocytes # (Manual) Monocytes # (Manual) PT INR APTT D-Dimer POC ABG pH 6.892 L ABG pH POC ABG pO2 236 H ABG pO2 ABG HCO3 ABG O2 Saturation ABG Base Excess ABG Hemoglobin VBG pH 6.800 L* Oxyhemoglobin Sodium 118 L* Potassium 9.0 H* Chloride 64.5 L Carbon Dioxide 7 L* BUN 53 H Creatinine 2.1 H Glucose 2196 H* POC Glucose Lactic Acid Calcium 12.4 H* Phosphorus Magnesium Iron TIBC Direct Bilirubin AST 3900 H ALT 1034 H Alkaline Phosphatase 316 H Total Creatine Kinase CK-MB (CK-2) C-Reactive Protein Total Protein 5.1 L Albumin 2.8 L Vitamin B12 Salicylates Acetaminophen Miscellaneous Test Crossmatch 03/29/19 03/29/19 03/29/19 22:45 22:45 22:45 WBC RBC Hgb Hct MCV MCH MCHC RDW Plt Count [place] % (Auto) Lymph # Seg Neuts % (Manual) Lymphocytes % (Manual) Nucleated RBC % Seg Neutrophils # Man Lymphocytes # (Manual) Monocytes # (Manual) PT INR APTT D-Dimer POC ABG pH ABG pH POC ABG pO2 ABG pO2 ABG HCO3 ABG O2 Saturation ABG Base Excess ABG Hemoglobin VBG pH Oxyhemoglobin Sodium 132 L D Potassium 7.0 H* Chloride 84.3 L Carbon Dioxide 3 L* BUN 48 H Creatinine 1.8 H Glucose 1779 H* POC Glucose Lactic Acid Calcium Phosphorus 21.70 H Magnesium 4.70 H Iron TIBC Direct Bilirubin AST ALT Alkaline Phosphatase Total Creatine Kinase 363 H CK-MB (CK-2) C-Reactive Protein Total Protein Albumin Vitamin B12 Salicylates Acetaminophen Miscellaneous Test Crossmatch 03/29/19 03/29/19 03/30/19 Unknown Unknown 00:11 WBC RBC Hgb Hct MCV MCH MCHC RDW Plt Count [place] % (Auto) Lymph # Seg Neuts % (Manual) Lymphocytes % (Manual) Nucleated RBC % Seg Neutrophils # Man Lymphocytes # (Manual) Monocytes # (Manual) PT INR APTT D-Dimer POC ABG pH ABG pH POC ABG pO2 ABG pO2 ABG HCO3 ABG O2 Saturation ABG Base Excess ABG Hemoglobin VBG pH Oxyhemoglobin Sodium 122 L Potassium 7.9 H* 6.4 H* Chloride 75.3 L 89.7 L Carbon Dioxide 3 L* 12 L D BUN 52 H 46 H Creatinine 2.0 H 1.7 H Glucose 2043 H* 1591 H* POC Glucose Lactic Acid Calcium 7.8 L Phosphorus 19.30 H Magnesium 3.90 H Iron TIBC Direct Bilirubin AST ALT Alkaline Phosphatase Total Creatine Kinase CK-MB (CK-2) C-Reactive Protein Total Protein Albumin Vitamin B12 Salicylates Acetaminophen Miscellaneous Test Crossmatch 03/30/19 03/30/19 03/30/19 00:11 02:14 02:14 WBC RBC Hgb Hct MCV MCH MCHC RDW Plt Count [place] % (Auto) Lymph # Seg Neuts % (Manual) Lymphocytes % (Manual) Nucleated RBC % Seg Neutrophils # Man Lymphocytes # (Manual) Monocytes # (Manual) PT INR APTT D-Dimer POC ABG pH ABG pH POC ABG pO2 ABG pO2 ABG HCO3 ABG O2 Saturation ABG Base Excess ABG Hemoglobin VBG pH Oxyhemoglobin Sodium Potassium Chloride Carbon Dioxide 9 L* BUN 45 H Creatinine 1.7 H Glucose 1155 H* POC Glucose Lactic Acid Calcium 7.9 L Phosphorus 10.90 H D 5.30 H D Magnesium 3.10 H 2.90 H Iron TIBC Direct Bilirubin AST ALT Alkaline Phosphatase Total Creatine Kinase CK-MB (CK-2) C-Reactive Protein Total Protein Albumin Vitamin B12 Salicylates Acetaminophen Miscellaneous Test Crossmatch 03/30/19 03/30/19 03/30/19 03:15 03:30 04:23 WBC 18.0 H RBC 2.31 L Hgb 7.3 L Hct 23.8 L D MCV 103 H MCH MCHC RDW 17.1 H Plt Count [place] % (Auto) Lymph # Seg Neuts % (Manual) 79.0 H Lymphocytes % (Manual) Nucleated RBC % Seg Neutrophils # Man 14.2 H Lymphocytes # (Manual) Monocytes # (Manual) PT INR APTT D-Dimer POC ABG pH 7.251 L ABG pH POC ABG pO2 156 H ABG pO2 ABG HCO3 ABG O2 Saturation ABG Base Excess ABG Hemoglobin VBG pH Oxyhemoglobin Sodium Potassium Chloride Carbon Dioxide BUN Creatinine Glucose POC Glucose Lactic Acid Calcium Phosphorus Magnesium Iron TIBC Direct Bilirubin AST ALT Alkaline Phosphatase Total Creatine Kinase CK-MB (CK-2) C-Reactive Protein Total Protein Albumin Vitamin B12 Salicylates Acetaminophen Miscellaneous Test Crossmatch See Detail 03/30/19 03/30/19 03/30/19 05:26 05:26 10:38 WBC RBC Hgb Hct MCV MCH MCHC RDW Plt Count [place] % (Auto) Lymph # Seg Neuts % (Manual) Lymphocytes % (Manual) Nucleated RBC % Seg Neutrophils # Man Lymphocytes # (Manual) Monocytes # (Manual) PT INR APTT D-Dimer POC ABG pH ABG pH POC ABG pO2 ABG pO2 ABG HCO3 ABG O2 Saturation ABG Base Excess ABG Hemoglobin VBG pH Oxyhemoglobin Sodium 158 H D Potassium 3.5 L Chloride 109.3 H Carbon Dioxide 19 L D BUN 40 H Creatinine 1.5 H Glucose 760 H* POC Glucose 380 H Lactic Acid Calcium 7.3 L Phosphorus Magnesium 2.60 H Iron TIBC Direct Bilirubin AST 99585 H ALT 2156 H Alkaline Phosphatase 271 H Total Creatine Kinase 2465 H CK-MB (CK-2) 52.7 H C-Reactive Protein Total Protein 4.5 L Albumin 2.4 L Vitamin B12 Salicylates Acetaminophen Miscellaneous Test Crossmatch 03/30/19 03/30/19 03/30/19 11:08 12:25 12:57 WBC RBC Hgb Hct MCV MCH MCHC RDW Plt Count [place] % (Auto) Lymph # Seg Neuts % (Manual) Lymphocytes % (Manual) Nucleated RBC % Seg Neutrophils # Man Lymphocytes # (Manual) Monocytes # (Manual) PT INR APTT D-Dimer POC ABG pH ABG pH POC ABG pO2 ABG pO2 ABG HCO3 ABG O2 Saturation ABG Base Excess ABG Hemoglobin VBG pH Oxyhemoglobin Sodium 156 H Potassium 3.2 L Chloride 116.4 H Carbon Dioxide 21 L BUN 37 H Creatinine Glucose 162 H POC Glucose 263 H 196 H Lactic Acid Calcium 7.2 L Phosphorus Magnesium Iron TIBC Direct Bilirubin AST ALT Alkaline Phosphatase Total Creatine Kinase CK-MB (CK-2) C-Reactive Protein Total Protein Albumin Vitamin B12 Salicylates Acetaminophen Miscellaneous Test Crossmatch 03/30/19 03/30/19 03/30/19 12:57 12:57 12:57 WBC RBC Hgb Hct MCV MCH MCHC RDW Plt Count [place] % (Auto) Lymph # Seg Neuts % (Manual) Lymphocytes % (Manual) Nucleated RBC % Seg Neutrophils # Man Lymphocytes # (Manual) Monocytes # (Manual) PT 21.0 H INR 1.86 H APTT D-Dimer POC ABG pH ABG pH POC ABG pO2 ABG pO2 ABG HCO3 ABG O2 Saturation ABG Base Excess ABG Hemoglobin VBG pH Oxyhemoglobin Sodium Potassium Chloride Carbon Dioxide BUN Creatinine Glucose POC Glucose Lactic Acid 9.00 H* Calcium Phosphorus Magnesium Iron TIBC Direct Bilirubin AST ALT Alkaline Phosphatase Total Creatine Kinase CK-MB (CK-2) C-Reactive Protein 2.40 H Total Protein Albumin Vitamin B12 Salicylates Acetaminophen Miscellaneous Test Crossmatch 03/30/19 03/30/19 03/30/19 13:23 14:00 14:47 WBC RBC Hgb Hct MCV MCH MCHC RDW Plt Count [place] % (Auto) Lymph # Seg Neuts % (Manual) Lymphocytes % (Manual) Nucleated RBC % Seg Neutrophils # Man Lymphocytes # (Manual) Monocytes # (Manual) PT INR APTT D-Dimer POC ABG pH ABG pH POC ABG pO2 ABG pO2 ABG HCO3 ABG O2 Saturation ABG Base Excess ABG Hemoglobin VBG pH Oxyhemoglobin Sodium Potassium Chloride Carbon Dioxide BUN Creatinine Glucose POC Glucose 176 H 245 H Lactic Acid Calcium Phosphorus Magnesium Iron TIBC Direct Bilirubin AST ALT Alkaline Phosphatase Total Creatine Kinase CK-MB (CK-2) C-Reactive Protein Total Protein Albumin Vitamin B12 Salicylates Acetaminophen Miscellaneous Test Flexitest 1 H Crossmatch 03/30/19 03/30/19 03/30/19 16:11 17:11 17:46 WBC RBC Hgb Hct MCV MCH MCHC RDW Plt Count [place] % (Auto) Lymph # Seg Neuts % (Manual) Lymphocytes % (Manual) Nucleated RBC % Seg Neutrophils # Man Lymphocytes # (Manual) Monocytes # (Manual) PT INR APTT D-Dimer POC ABG pH ABG pH POC ABG pO2 ABG pO2 ABG HCO3 ABG O2 Saturation ABG Base Excess ABG Hemoglobin VBG pH Oxyhemoglobin Sodium Potassium Chloride Carbon Dioxide BUN Creatinine Glucose POC Glucose 181 H 167 H 125 H Lactic Acid Calcium Phosphorus Magnesium Iron TIBC Direct Bilirubin AST ALT Alkaline Phosphatase Total Creatine Kinase CK-MB (CK-2) C-Reactive Protein Total Protein Albumin Vitamin B12 Salicylates Acetaminophen Miscellaneous Test Crossmatch 03/30/19 03/30/19 03/30/19 18:59 21:31 22:19 WBC RBC Hgb Hct MCV MCH MCHC RDW Plt Count [place] % (Auto) Lymph # Seg Neuts % (Manual) Lymphocytes % (Manual) Nucleated RBC % Seg Neutrophils # Man Lymphocytes # (Manual) Monocytes # (Manual) PT INR APTT D-Dimer POC ABG pH ABG pH POC ABG pO2 ABG pO2 ABG HCO3 ABG O2 Saturation ABG Base Excess ABG Hemoglobin VBG pH Oxyhemoglobin Sodium Potassium Chloride Carbon Dioxide BUN Creatinine Glucose POC Glucose 140 H 166 H 115 H Lactic Acid Calcium Phosphorus Magnesium Iron TIBC Direct Bilirubin AST ALT Alkaline Phosphatase Total Creatine Kinase CK-MB (CK-2) C-Reactive Protein Total Protein Albumin Vitamin B12 Salicylates Acetaminophen Miscellaneous Test Crossmatch 03/30/19 03/30/19 03/30/19 23:13 Unknown Unknown WBC RBC Hgb Hct MCV MCH MCHC RDW Plt Count [place] % (Auto) Lymph # Seg Neuts % (Manual) Lymphocytes % (Manual) Nucleated RBC % Seg Neutrophils # Man Lymphocytes # (Manual) Monocytes # (Manual) PT INR APTT D-Dimer POC ABG pH ABG pH POC ABG pO2 ABG pO2 47.8 L ABG HCO3 18.8 L ABG O2 Saturation 83.8 L ABG Base Excess -5.4 L ABG Hemoglobin 6.8 L VBG pH Oxyhemoglobin 81.8 L Sodium 157 H Potassium 3.3 L Chloride 117.9 H Carbon Dioxide 20 L BUN 36 H Creatinine Glucose 150 H POC Glucose 112 H Lactic Acid Calcium 7.2 L Phosphorus Magnesium Iron TIBC Direct Bilirubin AST ALT Alkaline Phosphatase Total Creatine Kinase CK-MB (CK-2) C-Reactive Protein Total Protein Albumin Vitamin B12 Salicylates Acetaminophen Miscellaneous Test Crossmatch 03/30/19 03/30/19 03/31/19 Unknown Unknown 00:03 WBC RBC Hgb Hct MCV MCH MCHC RDW Plt Count [place] % (Auto) Lymph # Seg Neuts % (Manual) Lymphocytes % (Manual) Nucleated RBC % Seg Neutrophils # Man Lymphocytes # (Manual) Monocytes # (Manual) PT INR APTT D-Dimer POC ABG pH ABG pH POC ABG pO2 ABG pO2 ABG HCO3 ABG O2 Saturation ABG Base Excess ABG Hemoglobin VBG pH Oxyhemoglobin Sodium Potassium Chloride Carbon Dioxide BUN Creatinine Glucose POC Glucose 188 H Lactic Acid Calcium Phosphorus Magnesium Iron TIBC Direct Bilirubin AST ALT Alkaline Phosphatase Total Creatine Kinase CK-MB (CK-2) C-Reactive Protein Total Protein Albumin Vitamin B12 Salicylates 0.8 L Acetaminophen < 5.0 L Miscellaneous Test Crossmatch 03/31/19 03/31/19 03/31/19 01:18 03:07 03:50 WBC RBC Hgb Hct MCV MCH MCHC RDW Plt Count [place] % (Auto) Lymph # Seg Neuts % (Manual) Lymphocytes % (Manual) Nucleated RBC % Seg Neutrophils # Man Lymphocytes # (Manual) Monocytes # (Manual) PT INR APTT D-Dimer POC ABG pH ABG pH 7.525 H POC ABG pO2 ABG pO2 178.0 H ABG HCO3 19.5 L ABG O2 Saturation 99.2 H ABG Base Excess -3.1 L ABG Hemoglobin 5.8 L VBG pH Oxyhemoglobin Sodium Potassium Chloride Carbon Dioxide BUN Creatinine Glucose POC Glucose 114 H 107 H Lactic Acid Calcium Phosphorus Magnesium Iron TIBC Direct Bilirubin AST ALT Alkaline Phosphatase Total Creatine Kinase CK-MB (CK-2) C-Reactive Protein Total Protein Albumin Vitamin B12 Salicylates Acetaminophen Miscellaneous Test Crossmatch 03/31/19 03/31/19 03/31/19 03:51 03:51 04:05 WBC RBC 1.89 L Hgb 6.1 L Hct 18.2 L* MCV MCH MCHC RDW 17.7 H Plt Count 89 L [place] % (Auto) Lymph # Seg Neuts % (Manual) 86.0 H Lymphocytes % (Manual) 10.0 L Nucleated RBC % 1.0 H Seg Neutrophils # Man Lymphocytes # (Manual) 0.7 L Monocytes # (Manual) PT INR APTT D-Dimer POC ABG pH ABG pH POC ABG pO2 ABG pO2 ABG HCO3 ABG O2 Saturation ABG Base Excess ABG Hemoglobin VBG pH Oxyhemoglobin Sodium 151 H Potassium 3.2 L Chloride 119.4 H Carbon Dioxide 17 L BUN 35 H Creatinine Glucose 139 H POC Glucose 153 H Lactic Acid Calcium 7.1 L Phosphorus Magnesium Iron TIBC Direct Bilirubin AST ALT Alkaline Phosphatase Total Creatine Kinase CK-MB (CK-2) C-Reactive Protein Total Protein Albumin Vitamin B12 Salicylates Acetaminophen Miscellaneous Test Crossmatch 03/31/19 03/31/19 03/31/19 05:05 05:35 06:23 WBC RBC Hgb Hct MCV MCH MCHC RDW Plt Count [place] % (Auto) Lymph # Seg Neuts % (Manual) Lymphocytes % (Manual) Nucleated RBC % Seg Neutrophils # Man Lymphocytes # (Manual) Monocytes # (Manual) PT INR APTT D-Dimer POC ABG pH ABG pH POC ABG pO2 ABG pO2 ABG HCO3 ABG O2 Saturation ABG Base Excess ABG Hemoglobin VBG pH Oxyhemoglobin Sodium Potassium Chloride Carbon Dioxide BUN Creatinine Glucose POC Glucose 176 H 133 H Lactic Acid 3.20 H* Calcium Phosphorus Magnesium Iron TIBC Direct Bilirubin AST ALT Alkaline Phosphatase Total Creatine Kinase CK-MB (CK-2) C-Reactive Protein Total Protein Albumin Vitamin B12 Salicylates Acetaminophen Miscellaneous Test Crossmatch 03/31/19 03/31/19 03/31/19 07:50 07:51 08:20 WBC RBC Hgb Hct MCV MCH MCHC RDW Plt Count [place] % (Auto) Lymph # Seg Neuts % (Manual) Lymphocytes % (Manual) Nucleated RBC % Seg Neutrophils # Man Lymphocytes # (Manual) Monocytes # (Manual) PT INR APTT D-Dimer POC ABG pH ABG pH POC ABG pO2 ABG pO2 ABG HCO3 ABG O2 Saturation ABG Base Excess ABG Hemoglobin VBG pH Oxyhemoglobin Sodium Potassium Chloride Carbon Dioxide BUN Creatinine Glucose POC Glucose 135 H Lactic Acid 3.30 H* Calcium Phosphorus Magnesium Iron 26 L TIBC 193 L Direct Bilirubin AST ALT Alkaline Phosphatase Total Creatine Kinase CK-MB (CK-2) C-Reactive Protein Total Protein Albumin Vitamin B12 Salicylates Acetaminophen Miscellaneous Test Crossmatch 03/31/19 03/31/19 03/31/19 08:20 08:20 09:06 WBC RBC Hgb Hct MCV MCH MCHC RDW Plt Count [place] % (Auto) Lymph # Seg Neuts % (Manual) Lymphocytes % (Manual) Nucleated RBC % Seg Neutrophils # Man Lymphocytes # (Manual) Monocytes # (Manual) PT INR APTT D-Dimer POC ABG pH ABG pH POC ABG pO2 ABG pO2 ABG HCO3 ABG O2 Saturation ABG Base Excess ABG Hemoglobin VBG pH Oxyhemoglobin Sodium 153 H Potassium 3.0 L Chloride 118.9 H Carbon Dioxide 18 L BUN 37 H Creatinine Glucose 132 H POC Glucose 145 H Lactic Acid Calcium 7.1 L Phosphorus Magnesium Iron TIBC Direct Bilirubin AST ALT Alkaline Phosphatase Total Creatine Kinase CK-MB (CK-2) C-Reactive Protein Total Protein Albumin Vitamin B12 > 2000 H Salicylates Acetaminophen Miscellaneous Test Crossmatch 03/31/19 03/31/19 03/31/19 10:47 11:49 13:04 WBC RBC Hgb Hct MCV MCH MCHC RDW Plt Count [place] % (Auto) Lymph # Seg Neuts % (Manual) Lymphocytes % (Manual) Nucleated RBC % Seg Neutrophils # Man Lymphocytes # (Manual) Monocytes # (Manual) PT INR APTT D-Dimer POC ABG pH ABG pH POC ABG pO2 ABG pO2 ABG HCO3 ABG O2 Saturation ABG Base Excess ABG Hemoglobin VBG pH Oxyhemoglobin Sodium Potassium Chloride Carbon Dioxide BUN Creatinine Glucose POC Glucose 153 H 174 H 214 H Lactic Acid Calcium Phosphorus Magnesium Iron TIBC Direct Bilirubin AST ALT Alkaline Phosphatase Total Creatine Kinase CK-MB (CK-2) C-Reactive Protein Total Protein Albumin Vitamin B12 Salicylates Acetaminophen Miscellaneous Test Crossmatch 03/31/19 03/31/19 03/31/19 13:42 15:08 16:08 WBC RBC Hgb Hct MCV MCH MCHC RDW Plt Count [place] % (Auto) Lymph # Seg Neuts % (Manual) Lymphocytes % (Manual) Nucleated RBC % Seg Neutrophils # Man Lymphocytes # (Manual) Monocytes # (Manual) PT INR APTT D-Dimer POC ABG pH ABG pH POC ABG pO2 ABG pO2 ABG HCO3 ABG O2 Saturation ABG Base Excess ABG Hemoglobin VBG pH Oxyhemoglobin Sodium Potassium Chloride Carbon Dioxide BUN Creatinine Glucose POC Glucose 186 H 136 H 150 H Lactic Acid Calcium Phosphorus Magnesium Iron TIBC Direct Bilirubin AST ALT Alkaline Phosphatase Total Creatine Kinase CK-MB (CK-2) C-Reactive Protein Total Protein Albumin Vitamin B12 Salicylates Acetaminophen Miscellaneous Test Crossmatch 03/31/19 03/31/19 03/31/19 17:11 17:30 17:30 WBC RBC Hgb 7.7 L Hct 23.0 L MCV MCH MCHC RDW Plt Count [place] % (Auto) Lymph # Seg Neuts % (Manual) Lymphocytes % (Manual) Nucleated RBC % Seg Neutrophils # Man Lymphocytes # (Manual) Monocytes # (Manual) PT INR APTT D-Dimer POC ABG pH ABG pH POC ABG pO2 ABG pO2 ABG HCO3 ABG O2 Saturation ABG Base Excess ABG Hemoglobin VBG pH Oxyhemoglobin Sodium 153 H Potassium 3.5 L Chloride 119.3 H Carbon Dioxide 20 L BUN 34 H Creatinine Glucose 162 H POC Glucose 140 H Lactic Acid Calcium 7.6 L Phosphorus Magnesium Iron TIBC Direct Bilirubin AST ALT Alkaline Phosphatase Total Creatine Kinase CK-MB (CK-2) C-Reactive Protein Total Protein Albumin Vitamin B12 Salicylates Acetaminophen Miscellaneous Test Crossmatch 03/31/19 03/31/19 03/31/19 17:59 18:58 20:28 WBC RBC Hgb Hct MCV MCH MCHC RDW Plt Count [place] % (Auto) Lymph # Seg Neuts % (Manual) Lymphocytes % (Manual) Nucleated RBC % Seg Neutrophils # Man Lymphocytes # (Manual) Monocytes # (Manual) PT INR APTT D-Dimer POC ABG pH ABG pH POC ABG pO2 ABG pO2 ABG HCO3 ABG O2 Saturation ABG Base Excess ABG Hemoglobin VBG pH Oxyhemoglobin Sodium Potassium Chloride Carbon Dioxide BUN Creatinine Glucose POC Glucose 156 H 152 H 138 H Lactic Acid Calcium Phosphorus Magnesium Iron TIBC Direct Bilirubin AST ALT Alkaline Phosphatase Total Creatine Kinase CK-MB (CK-2) C-Reactive Protein Total Protein Albumin Vitamin B12 Salicylates Acetaminophen Miscellaneous Test Crossmatch 03/31/19 03/31/19 03/31/19 21:09 22:15 23:10 WBC RBC Hgb Hct MCV MCH MCHC RDW Plt Count [place] % (Auto) Lymph # Seg Neuts % (Manual) Lymphocytes % (Manual) Nucleated RBC % Seg Neutrophils # Man Lymphocytes # (Manual) Monocytes # (Manual) PT INR APTT D-Dimer POC ABG pH ABG pH POC ABG pO2 ABG pO2 ABG HCO3 ABG O2 Saturation ABG Base Excess ABG Hemoglobin VBG pH Oxyhemoglobin Sodium Potassium Chloride Carbon Dioxide BUN Creatinine Glucose POC Glucose 136 H 137 H 148 H Lactic Acid Calcium Phosphorus Magnesium Iron TIBC Direct Bilirubin AST ALT Alkaline Phosphatase Total Creatine Kinase CK-MB (CK-2) C-Reactive Protein Total Protein Albumin Vitamin B12 Salicylates Acetaminophen Miscellaneous Test Crossmatch 04/01/19 04/01/19 04/01/19 00:05 01:17 02:11 WBC RBC Hgb Hct MCV MCH MCHC RDW Plt Count [place] % (Auto) Lymph # Seg Neuts % (Manual) Lymphocytes % (Manual) Nucleated RBC % Seg Neutrophils # Man Lymphocytes # (Manual) Monocytes # (Manual) PT INR APTT D-Dimer POC ABG pH ABG pH POC ABG pO2 ABG pO2 ABG HCO3 ABG O2 Saturation ABG Base Excess ABG Hemoglobin VBG pH Oxyhemoglobin Sodium Potassium Chloride Carbon Dioxide BUN Creatinine Glucose POC Glucose 143 H 151 H 155 H Lactic Acid Calcium Phosphorus Magnesium Iron TIBC Direct Bilirubin AST ALT Alkaline Phosphatase Total Creatine Kinase CK-MB (CK-2) C-Reactive Protein Total Protein Albumin Vitamin B12 Salicylates Acetaminophen Miscellaneous Test Crossmatch 04/01/19 04/01/19 04/01/19 03:12 04:03 04:16 WBC RBC Hgb Hct MCV MCH MCHC RDW Plt Count [place] % (Auto) Lymph # Seg Neuts % (Manual) Lymphocytes % (Manual) Nucleated RBC % Seg Neutrophils # Man Lymphocytes # (Manual) Monocytes # (Manual) PT INR APTT D-Dimer POC ABG pH ABG pH POC ABG pO2 ABG pO2 ABG HCO3 ABG O2 Saturation ABG Base Excess ABG Hemoglobin VBG pH Oxyhemoglobin Sodium Potassium Chloride Carbon Dioxide BUN Creatinine Glucose POC Glucose 140 H 143 H 142 H Lactic Acid Calcium Phosphorus Magnesium Iron TIBC Direct Bilirubin AST ALT Alkaline Phosphatase Total Creatine Kinase CK-MB (CK-2) C-Reactive Protein Total Protein Albumin Vitamin B12 Salicylates Acetaminophen Miscellaneous Test Crossmatch 04/01/19 04/01/19 04/01/19 05:01 05:01 05:08 WBC RBC 2.05 L Hgb 6.8 L Hct 20.5 L MCV 100 H MCH 33 H MCHC RDW 17.7 H Plt Count 53 L [place] % (Auto) Lymph # Seg Neuts % (Manual) 71.0 H Lymphocytes % (Manual) Nucleated RBC % Seg Neutrophils # Man Lymphocytes # (Manual) Monocytes # (Manual) PT INR APTT D-Dimer POC ABG pH ABG pH POC ABG pO2 ABG pO2 ABG HCO3 ABG O2 Saturation ABG Base Excess ABG Hemoglobin VBG pH Oxyhemoglobin Sodium Potassium Chloride Carbon Dioxide BUN Creatinine Glucose POC Glucose 119 H Lactic Acid Calcium Phosphorus Magnesium Iron TIBC Direct Bilirubin 0.3 H AST 4601 H ALT 1542 H Alkaline Phosphatase 185 H Total Creatine Kinase CK-MB (CK-2) C-Reactive Protein Total Protein 3.8 L Albumin 1.6 L Vitamin B12 Salicylates Acetaminophen Miscellaneous Test Crossmatch 04/01/19 04/01/19 04/01/19 05:23 06:37 08:15 WBC RBC Hgb Hct MCV MCH MCHC RDW Plt Count [place] % (Auto) Lymph # Seg Neuts % (Manual) Lymphocytes % (Manual) Nucleated RBC % Seg Neutrophils # Man Lymphocytes # (Manual) Monocytes # (Manual) PT INR APTT D-Dimer POC ABG pH ABG pH POC ABG pO2 ABG pO2 ABG HCO3 ABG O2 Saturation ABG Base Excess ABG Hemoglobin VBG pH Oxyhemoglobin Sodium Potassium Chloride Carbon Dioxide BUN Creatinine Glucose POC Glucose 115 H 124 H 138 H Lactic Acid Calcium Phosphorus Magnesium Iron TIBC Direct Bilirubin AST ALT Alkaline Phosphatase Total Creatine Kinase CK-MB (CK-2) C-Reactive Protein Total Protein Albumin Vitamin B12 Salicylates Acetaminophen Miscellaneous Test Crossmatch 04/01/19 04/01/19 04/01/19 09:50 10:10 10:31 WBC RBC Hgb 6.5 L Hct 19.2 L* MCV MCH MCHC RDW Plt Count Whit[place] % (Auto) Lymph # Seg Neuts % (Manual) Lymphocytes % (Manual) Nucleated RBC % Seg Neutrophils # Man Lymphocytes # (Manual) Monocytes # (Manual) PT INR APTT D-Dimer POC ABG pH ABG pH POC ABG pO2 ABG pO2 ABG HCO3 ABG O2 Saturation ABG Base Excess ABG Hemoglobin VBG pH Oxyhemoglobin Sodium 149 H Potassium 3.5 L Chloride 119.9 H Carbon Dioxide 21 L BUN 33 H Creatinine 0.5 L Glucose 142 H POC Glucose 185 H Lactic Acid Calcium 7.3 L Phosphorus Magnesium Iron TIBC Direct Bilirubin AST 3686 H ALT 1440 H Alkaline Phosphatase 185 H Total Creatine Kinase CK-MB (CK-2) C-Reactive Protein Total Protein 3.7 L Albumin 1.8 L Vitamin B12 Salicylates Acetaminophen Miscellaneous Test Crossmatch 04/01/19 04/01/19 04/01/19 11:35 13:05 14:35 WBC RBC Hgb Hct MCV MCH MCHC RDW Plt Count [place] % (Auto) Lymph # Seg Neuts % (Manual) Lymphocytes % (Manual) Nucleated RBC % Seg Neutrophils # Man Lymphocytes # (Manual) Monocytes # (Manual) PT INR APTT D-Dimer POC ABG pH ABG pH POC ABG pO2 ABG pO2 ABG HCO3 ABG O2 Saturation ABG Base Excess ABG Hemoglobin VBG pH Oxyhemoglobin Sodium Potassium Chloride Carbon Dioxide BUN Creatinine Glucose POC Glucose 201 H 169 H 134 H Lactic Acid Calcium Phosphorus Magnesium Iron TIBC Direct Bilirubin AST ALT Alkaline Phosphatase Total Creatine Kinase CK-MB (CK-2) C-Reactive Protein Total Protein Albumin Vitamin B12 Salicylates Acetaminophen Miscellaneous Test Crossmatch 04/01/19 04/01/19 04/01/19 17:13 17:14 18:30 WBC RBC Hgb Hct MCV MCH MCHC RDW Plt Count [place] % (Auto) Lymph # Seg Neuts % (Manual) Lymphocytes % (Manual) Nucleated RBC % Seg Neutrophils # Man Lymphocytes # (Manual) Monocytes # (Manual) PT INR APTT D-Dimer 5203.68 H POC ABG pH ABG pH POC ABG pO2 ABG pO2 ABG HCO3 ABG O2 Saturation ABG Base Excess ABG Hemoglobin VBG pH Oxyhemoglobin Sodium Potassium Chloride Carbon Dioxide BUN Creatinine Glucose POC Glucose 69 L 128 H Lactic Acid Calcium Phosphorus Magnesium Iron TIBC Direct Bilirubin AST ALT Alkaline Phosphatase Total Creatine Kinase CK-MB (CK-2) C-Reactive Protein Total Protein Albumin Vitamin B12 Salicylates Acetaminophen Miscellaneous Test Crossmatch 0904/01/19 04/02/19 22:50 Unknown 03:40 WBC RBC Hgb Hct MCV MCH MCHC RDW Plt Count Whit[place] % (Auto) Lymph # Seg Neuts % (Manual) Lymphocytes % (Manual) Nucleated RBC % Seg Neutrophils # Man Lymphocytes # (Manual) Monocytes # (Manual) PT INR APTT D-Dimer POC ABG pH ABG pH POC ABG pO2 ABG pO2 78.3 L 142.8 H ABG HCO3 15.5 L ABG O2 Saturation ABG Base Excess -3.5 L -8.2 L ABG Hemoglobin 6.8 L 8.2 L VBG pH Oxyhemoglobin 94.3 L Sodium Potassium Chloride Carbon Dioxide BUN Creatinine Glucose POC Glucose 342 H Lactic Acid Calcium Phosphorus Magnesium Iron TIBC Direct Bilirubin AST ALT Alkaline Phosphatase Total Creatine Kinase CK-MB (CK-2) C-Reactive Protein Total Protein Albumin Vitamin B12 Salicylates Acetaminophen Miscellaneous Test Crossmatch 04/02/19 04/02/19 04/02/19 03:49 06:50 07:48 WBC RBC 2.65 L Hgb 8.6 L Hct 25.1 L MCV MCH MCHC RDW 17.6 H Plt Count 48 L Whitley % (Auto) Lymph # Seg Neuts % (Manual) Lymphocytes % (Manual) Nucleated RBC % Seg Neutrophils # Man Lymphocytes # (Manual) Monocytes # (Manual) PT INR APTT D-Dimer POC ABG pH ABG pH POC ABG pO2 ABG pO2 ABG HCO3 ABG O2 Saturation ABG Base Excess ABG Hemoglobin VBG pH Oxyhemoglobin Sodium Potassium Chloride Carbon Dioxide BUN Creatinine Glucose POC Glucose 247 H 200 H Lactic Acid Calcium Phosphorus Magnesium Iron TIBC Direct Bilirubin AST ALT Alkaline Phosphatase Total Creatine Kinase CK-MB (CK-2) C-Reactive Protein Total Protein Albumin Vitamin B12 Salicylates Acetaminophen Miscellaneous Test Crossmatch 04/02/19 04/02/19 04/02/19 07:48 11:18 14:07 WBC RBC Hgb Hct MCV MCH MCHC RDW Plt Count [place] % (Auto) Lymph # Seg Neuts % (Manual) Lymphocytes % (Manual) Nucleated RBC % Seg Neutrophils # Man Lymphocytes # (Manual) Monocytes # (Manual) PT INR APTT D-Dimer POC ABG pH ABG pH POC ABG pO2 ABG pO2 ABG HCO3 ABG O2 Saturation ABG Base Excess ABG Hemoglobin VBG pH Oxyhemoglobin Sodium Potassium 3.5 L Chloride 115.7 H Carbon Dioxide 19 L BUN 29 H Creatinine 0.5 L Glucose 159 H POC Glucose 154 H 149 H Lactic Acid Calcium 7.5 L Phosphorus Magnesium Iron TIBC Direct Bilirubin AST 1418 H ALT 1134 H Alkaline Phosphatase 242 H Total Creatine Kinase CK-MB (CK-2) C-Reactive Protein Total Protein 4.2 L Albumin 2.1 L Vitamin B12 Salicylates Acetaminophen Miscellaneous Test Crossmatch 04/02/19 04/02/19 04/02/19 18:09 19:46 23:05 WBC RBC Hgb Hct MCV MCH MCHC RDW Plt Count [place] % (Auto) Lymph # Seg Neuts % (Manual) Lymphocytes % (Manual) Nucleated RBC % Seg Neutrophils # Man Lymphocytes # (Manual) Monocytes # (Manual) PT INR APTT D-Dimer POC ABG pH ABG pH POC ABG pO2 ABG pO2 ABG HCO3 ABG O2 Saturation ABG Base Excess ABG Hemoglobin VBG pH Oxyhemoglobin Sodium Potassium Chloride Carbon Dioxide BUN Creatinine Glucose POC Glucose 188 H 209 H 247 H Lactic Acid Calcium Phosphorus Magnesium Iron TIBC Direct Bilirubin AST ALT Alkaline Phosphatase Total Creatine Kinase CK-MB (CK-2) C-Reactive Protein Total Protein Albumin Vitamin B12 Salicylates Acetaminophen Miscellaneous Test Crossmatch 04/03/19 04/03/19 04/03/19 02:58 03:40 03:40 WBC RBC 2.87 L Hgb 9.3 L Hct 27.0 L MCV MCH MCHC RDW 17.2 H Plt Count 65 L Whitley % (Auto) 9.8 H Lymph # 1.1 L Seg Neuts % (Manual) Lymphocytes % (Manual) Nucleated RBC % Seg Neutrophils # Man Lymphocytes # (Manual) Monocytes # (Manual) PT INR APTT D-Dimer POC ABG pH ABG pH POC ABG pO2 ABG pO2 ABG HCO3 ABG O2 Saturation ABG Base Excess ABG Hemoglobin VBG pH Oxyhemoglobin Sodium 147 H Potassium 3.5 L Chloride 116.7 H Carbon Dioxide 18 L BUN Creatinine 0.4 L Glucose 150 H POC Glucose 166 H Lactic Acid Calcium 8.1 L Phosphorus 2.20 L Magnesium Iron TIBC Direct Bilirubin AST 594 H ALT 861 H Alkaline Phosphatase 299 H Total Creatine Kinase CK-MB (CK-2) C-Reactive Protein Total Protein 4.4 L Albumin 2.1 L Vitamin B12 Salicylates Acetaminophen Miscellaneous Test Crossmatch 04/03/19 04/03/19 04/03/19 05:35 07:02 08:23 WBC RBC Hgb Hct MCV MCH MCHC RDW Plt Count [place] % (Auto) Lymph # Seg Neuts % (Manual) Lymphocytes % (Manual) Nucleated RBC % Seg Neutrophils # Man Lymphocytes # (Manual) Monocytes # (Manual) PT INR APTT D-Dimer POC ABG pH ABG pH POC ABG pO2 ABG pO2 97.7 H ABG HCO3 19.3 L ABG O2 Saturation ABG Base Excess -5.0 L ABG Hemoglobin 8.0 L VBG pH Oxyhemoglobin Sodium Potassium Chloride Carbon Dioxide BUN Creatinine Glucose POC Glucose 135 H 132 H Lactic Acid Calcium Phosphorus Magnesium Iron TIBC Direct Bilirubin AST ALT Alkaline Phosphatase Total Creatine Kinase CK-MB (CK-2) C-Reactive Protein Total Protein Albumin Vitamin B12 Salicylates Acetaminophen Miscellaneous Test Crossmatch 04/03/19 04/03/19 04/03/19 11:58 15:11 17:53 WBC RBC Hgb Hct MCV MCH MCHC RDW Plt Count [place] % (Auto) Lymph # Seg Neuts % (Manual) Lymphocytes % (Manual) Nucleated RBC % Seg Neutrophils # Man Lymphocytes # (Manual) Monocytes # (Manual) PT INR APTT D-Dimer POC ABG pH ABG pH POC ABG pO2 ABG pO2 ABG HCO3 ABG O2 Saturation ABG Base Excess ABG Hemoglobin VBG pH Oxyhemoglobin Sodium Potassium Chloride Carbon Dioxide BUN Creatinine Glucose POC Glucose 179 H 213 H 223 H Lactic Acid Calcium Phosphorus Magnesium Iron TIBC Direct Bilirubin AST ALT Alkaline Phosphatase Total Creatine Kinase CK-MB (CK-2) C-Reactive Protein Total Protein Albumin Vitamin B12 Salicylates Acetaminophen Miscellaneous Test Crossmatch 04/03/19 04/04/19 04/04/19 23:06 02:36 06:41 WBC RBC Hgb Hct MCV MCH MCHC RDW Plt Count [place] % (Auto) Lymph # Seg Neuts % (Manual) Lymphocytes % (Manual) Nucleated RBC % Seg Neutrophils # Man Lymphocytes # (Manual) Monocytes # (Manual) PT INR APTT D-Dimer POC ABG pH ABG pH POC ABG pO2 ABG pO2 ABG HCO3 ABG O2 Saturation ABG Base Excess ABG Hemoglobin VBG pH Oxyhemoglobin Sodium Potassium Chloride Carbon Dioxide BUN Creatinine Glucose POC Glucose 189 H 157 H 131 H Lactic Acid Calcium Phosphorus Magnesium Iron TIBC Direct Bilirubin AST ALT Alkaline Phosphatase Total Creatine Kinase CK-MB (CK-2) C-Reactive Protein Total Protein Albumin Vitamin B12 Salicylates Acetaminophen Miscellaneous Test Crossmatch 04/04/19 04/04/19 04/04/19 11:42 15:45 18:21 WBC RBC Hgb Hct MCV MCH MCHC RDW Plt Count [place] % (Auto) Lymph # Seg Neuts % (Manual) Lymphocytes % (Manual) Nucleated RBC % Seg Neutrophils # Man Lymphocytes # (Manual) Monocytes # (Manual) PT INR APTT D-Dimer POC ABG pH ABG pH POC ABG pO2 ABG pO2 ABG HCO3 ABG O2 Saturation ABG Base Excess ABG Hemoglobin VBG pH Oxyhemoglobin Sodium Potassium Chloride Carbon Dioxide BUN Creatinine Glucose POC Glucose 233 H 236 H 255 H Lactic Acid Calcium Phosphorus Magnesium Iron TIBC Direct Bilirubin AST ALT Alkaline Phosphatase Total Creatine Kinase CK-MB (CK-2) C-Reactive Protein Total Protein Albumin Vitamin B12 Salicylates Acetaminophen Miscellaneous Test Crossmatch 04/04/19 04/05/19 04/05/19 21:21 03:06 06:05 WBC RBC 2.68 L Hgb 8.5 L Hct 26.3 L MCV 98 H MCH MCHC RDW 17.4 H Plt Count [place] % (Auto) Lymph # Seg Neuts % (Manual) Lymphocytes % (Manual) Nucleated RBC % Seg Neutrophils # Man Lymphocytes # (Manual) Monocytes # (Manual) PT INR APTT D-Dimer POC ABG pH ABG pH POC ABG pO2 ABG pO2 ABG HCO3 ABG O2 Saturation ABG Base Excess ABG Hemoglobin VBG pH Oxyhemoglobin Sodium Potassium Chloride Carbon Dioxide BUN Creatinine Glucose POC Glucose 132 H 161 H Lactic Acid Calcium Phosphorus Magnesium Iron TIBC Direct Bilirubin AST ALT Alkaline Phosphatase Total Creatine Kinase CK-MB (CK-2) C-Reactive Protein Total Protein Albumin Vitamin B12 Salicylates Acetaminophen Miscellaneous Test Crossmatch 04/05/19 04/05/19 04/05/19 06:05 06:49 10:23 WBC RBC Hgb Hct MCV MCH MCHC RDW Plt Count [place] % (Auto) Lymph # Seg Neuts % (Manual) Lymphocytes % (Manual) Nucleated RBC % Seg Neutrophils # Man Lymphocytes # (Manual) Monocytes # (Manual) PT INR APTT D-Dimer POC ABG pH ABG pH POC ABG pO2 ABG pO2 ABG HCO3 ABG O2 Saturation ABG Base Excess ABG Hemoglobin VBG pH Oxyhemoglobin Sodium Potassium Chloride 112.5 H Carbon Dioxide BUN Creatinine 0.2 L Glucose 237 H POC Glucose 283 H 296 H Lactic Acid Calcium 7.9 L Phosphorus Magnesium Iron TIBC Direct Bilirubin AST ALT Alkaline Phosphatase Total Creatine Kinase CK-MB (CK-2) C-Reactive Protein Total Protein Albumin Vitamin B12 Salicylates Acetaminophen Miscellaneous Test Crossmatch
--- NOTE | 2019-04-05 16:20 | Progress Note ---
Assessment and Plan Cultures: 03/29 BCx: pend 03/29 sputum Cx: C albicans A/P: 28 yo F PMHx T1DM admitted after receiving intubation and compressions due to non-responsiveness likely secondary to DKA 1. SIRS - likely secondary to DKA/resuscitation, possible infective component of aspiration PNA vs penumonitis. Leukocytosis improving. Pressor requirements impr oving. CXR improving. 2. Aspiration pneumonia - Procal greatly elevated. Continue antibiotics. Can treat for 7 days. Jenn in sputum culture not a pathogen of the respiratory tract. 3. Acute liver failure - Possibly secondary to DKA, but liver enzymes vastly and quickly increased. Viral etiologies negative. improved 4. DKA - numerous metabolic derangements, per primary/ICU team 5. T1DM 6. Head lice - s/p treatment. Recs: - continue cefepime renally dosed at 2g q8h - continue metronidazole 500mg q8h - follow liver function - stop date: 04/06 Thank you for the consult, we will continue to follow. Vlad Carson MD [facility] M: [phone] O: [phone] F: [phone] Subjective Date of service: 04/05/19 Principal diagnosis: Ac Hypoxemic Resp Failure; DKA; Severe sepsis with shock; ANGELICA Interval history: No change today. Afebrile, normal white count. Objective - Exam Narrative Exam: Physical Exam: Constitutional: Intubated, sedated Head, Ears, Nose: Normocephalic, atraumatic. External ears, nose normal Eyes: Conjunctivae/corneas clear. No icterus. No ptosis. Neck: Supple, no meningeal signs. Intubated Oral: dentition fair, no thrush Cardiovascular: S1, S2 normal. Respiratory: Good air entry, clear to auscultation bilaterally GI: Soft, non-tender; bowel sounds normal. No peritoneal signs. Musculoskeletal: No pedal edema, no cyanosis. Skin: No rash or abscess Hem/Lymphatic: No palpable cervical or supraclavicular nodes. No lymphangitis Neurological: Intubated, sedated - Constitutional Vitals: Vital Signs Temp Pulse Resp BP Pulse Ox 99 F 126 H 15 116/81 96 04/05/19 12:00 04/05/19 16:00 04/05/19 15:00 04/05/19 16:00 04/05/19 16:00 Temperature -Last 24 Hours Temperature 99 F Temperature 99.1 F Temperature 98.0 F Temperature 97.7 F Temperature 97.9 F - Labs CBC & Chem 7: 04/05/19 06:05 04/05/19 06:05 Labs: Abnormal lab results 04/04/19 04/04/19 04/04/19 Range/Units 15:45 18:21 21:21 RBC (3.65-5.03) M/mm3 Hgb (10.1-14.3) gm/dl Hct (30.3-42.9) % MCV (79-97) fl RDW (13.2-15.2) % Chloride (98-107) mmol/L Creatinine (0.7-1.2) mg/dL Glucose (65-100) mg/dL POC Glucose 236 H 255 H 132 H (70-105) Calcium (8.4-10.2) mg/dL 04/05/19 04/05/19 04/05/19 Range/Units 03:06 06:05 06:05 RBC 2.68 L (3.65-5.03) M/mm3 Hgb 8.5 L (10.1-14.3) gm/dl Hct 26.3 L (30.3-42.9) % MCV 98 H (79-97) fl RDW 17.4 H (13.2-15.2) % Chloride 112.5 H (98-107) mmol/L Creatinine 0.2 L (0.7-1.2) mg/dL Glucose 237 H (65-100) mg/dL POC Glucose 161 H (70-105) Calcium 7.9 L (8.4-10.2) mg/dL 04/05/19 04/05/19 Range/Units 06:49 10:23 RBC (3.65-5.03) M/mm3 Hgb (10.1-14.3) gm/dl Hct (30.3-42.9) % MCV (79-97) fl RDW (13.2-15.2) % Chloride (98-107) mmol/L Creatinine (0.7-1.2) mg/dL Glucose (65-100) mg/dL POC Glucose 283 H 296 H (70-105) Calcium (8.4-10.2) mg/dL
[2019-04-05] MEDS: SUBLIMAZE IV PRN ×2 (16:29→20:16)
[2019-04-05] MEDS: LANTUS SUB-Q SCH (23:18)
[2019-04-05] MEDS: ENOXAPARIN SUB-Q SCH (23:27)
[2019-04-05] MEDS ORDERED: METOPROLOL IV ONE (23:39)
[2019-04-06] MEDS: HumuLIN R SUB-Q SCH ×7 (01:56→23:09)
[2019-04-06] MEDS: SUBLIMAZE IV PRN ×7 (02:02→22:10)
--- NOTE | 2019-04-06 03:12 | Event Note ---
Date: 04/06/19 Kwame had elevated heart rate in the 150s unrelieved by pain meds and BP. EKG unrevealing for acute ischemic abnormalities showing sinus tachycardia at 152 bpm. troponin negative 1, we'll repeat at 6 AM. D-dimer elevated at 4526. CT angiogram chest pending. Follow results of CT angiogram chest
--- NOTE | 2019-04-06 04:53 | Cat Scan Report ---
CTA CHEST WITH IV CONTRAST INDICATION: Ventilator patient, tachycardia, elevated d-dimer CONTRAST: 100 cc Omnipaque 350 IV COMPARISON: Chest x-ray tonight Three-plane MIP reconstructions were produced. All CT scans at this location are performed using CT d ose reduction for ALARA by means of automated exposure control. FINDINGS: Diffuse subcutaneous edema is prominent. No focal axillary lesions are seen. Endotracheal t ube appears to be in satisfactory position. Nasogastric tube extends well into the stomach. No medias tinal or hilar masses are seen. Small bilateral pleural effusions are seen with associated atelectati c changes. Mild diffuse increase in interstitial markings could represent interstitial edema. This is mildly more prominent on the left than right. No discrete pulmonary nodules or masses are seen. No p neumothorax or pneumomediastinum are noted. Views of the upper abdomen show a prominently abnormal appearance of the liver. A large hypodensity i s seen in the extreme upper portion of the right lobe adjacent to the right hemidiaphragm. This has a mixed internal density measuring 31 Hounsfield units, above the water range. Dimensions of this hypo density are 11.8 x 8.4 x 5.1 cm. The appearance most suggests a large subcapsular collection rather t burden a parenchymal mass. More inferiorly along the right lateral aspect of the right lobe percent tic fluid type density is seen which may also be subcapsular though appears to penetrate somewhat into th e parenchyma. No gas is seen within these hypodensities. In the medial segment of the left lobe of th e junction with the right lobe a large area of hypodensity is seen in a band extending anteriorly to posteriorly measuring 8 cm in length and 4 cm in width. This also appears to involve the caudate lobe . No ascites is obvious. No other upper abdominal abnormalities are seen. Aorta shows no aneurysmal dilatation or evidence of dissection. Moderate opacification of the pulmonary arterial system was achieved. Artifact on this study makes ev aluation of some areas difficult. No large central PTE is identified. Some smaller arteries in both l ower lobes in the right upper lobe show a question of small filling defects but I believe at least mo st of this is artifactual. I would have difficulty excluding very small PTE but I do not see evidence of large PTE. IMPRESSION: 1. No definite evidence of pulmonary thromboembolism is seen. Artifact in the study makes evaluation of smaller arteries difficult as discussed however. 2. Probable mild interstitial pulmonary edema. 3. Evidence of anasarca with diffuse subcutaneous edema and small bilateral pleural effusions. 4. Very unusual appearance to the liver as discussed. A large hypodensity under the dome of the diaph ragm in the upper portion of the right lobe probably is a subcapsular collection which I believe is m ore likely than a study subdiaphragmatic abscess. Small amount of more crescentic fluid density is se en along the right lateral margin of the liver which may also represent subcapsular fluid. These coul d represent subcapsular abscesses extending into the parenchyma. There is also a large more vague hyp odensity within the parenchyma of the liver in the medial segment of the left lobe as discussed which could represent developing abscess though a neoplastic mass is not excluded. Signer Name: Jair Woo MD Signed: 04/06/2019 4:49 AM Workstation Name: [id number]
[2019-04-06] MEDS: FLAGYL 500 MG/100 ML 500 MG/100 ML BAG IV SCH ×3 (06:03→22:11)
[2019-04-06] MEDS: CEFEPIME/NS 2 GM/100 ML 2 GM/100 ML BAG IV SCH ×3 (06:03→22:11)
[2019-04-06 06:21] LABS: Hemoglobin 9.1 gm/dl (10.1-14.3); Mean Corpuscular HGB Conc 33 % (30-34); Mean Corpuscular Volume 97 fl (79-97); Platelet Count 245 K/mm3 (140-440); Red Cell Distribution Width 17.3 % (13.2-15.2)
--- NOTE | 2019-04-06 06:30 | XRay Report ---
CHEST 1 VIEW 0157 INDICATION / CLINICAL INFORMATION: follow up respiratory failure. COMPARISON: 04/05/2019 FINDINGS: SUPPORT DEVICES: Stable HEART / MEDIASTINUM: Stable LUNGS / PLEURA: Infiltrate and atelectasis in the left lung appear mildly improved. No pneumothorax. ADDITIONAL FINDINGS: No significant additional findings. IMPRESSION: Mild improvement Signer Name: Jair Woo MD Signed: 04/06/2019 6:26 AM Workstation Name: [id number]
[2019-04-06 06:47] LABS: BUN/Creatinine Ratio 40; Blood Urea Nitrogen 8 mg/dL (7-17); Hemolysis Index 23
--- NOTE | 2019-04-06 08:58 | Progress Note ---
Assessment and Plan Assessment and plan: 28 year old woman with a history of diabetes was brought to the emergency room following a cardiac arrest. Her last well-known time was 10:30 in the morning, she was traveling with a friend, she was unresponsive in the back seat. EMS was called, CPR was started and continued here in the emergency room. Patient was intubated in the ER, noted hypotensive started on dobutamine, epinephrine and Levophed drip, given IV fluids, found to be in DKA with BG ~2200, several metabolic derangements - placed on insulin drip and admitted to ICU. Still intubated on vent, minimal response. Acute respiratory failure - on vent, cont nebs, CC consulted Acute encephalopathy, POA - CT head negative - likely from cardiac arrest - consulted neurology Cardiac arrest s/p resuscitation - likely 2/2 severe hyperglycemia - preserved EF onb2d echo DKA, severe - BG was >2200 on admission - s/p insulin drip. cont iv fluid - monitor BG q4h, on TF and on subqu insulin - adjust dose as needed Shock hypotensive vs sepsis - cont iv fluid, s/p pressor support - follow Cx result, cont abx - weaned off pressor as tolerated Sepsis with possible aspiration PNA - evident on CXR on admission with left sided infiltrates - cont abx per ID Head lice Permethin given Acute renal failure, likely vasomotor nephropathy - resolved - cont iv fluid, monitor BMP Anemia, acute on chronic - no sign of blood loss s/p 2 Units PRBC transfused Hyperkalemia, resolved with fluid and insulin Hypernatremia Resolved hypokalemia, resolved Shock liver with elevated LFT and Coagulopathy - due to cardiac arrest and hypotension - cont to monitor Hypermagnesemia Hyperphosphatemia - cont to monitor, improved DVT Px, heparin Poor prognosis discussed with mother at bedside on 04/03/19 The high probability of a clinically significant, sudden or life threatening deterioration of the [multiple] system(s) required my full and direct attention, intervention and personal management. The aggregate critical care time was [36] minutes. This time is in addition to time spent performing reported procedures but includes the following: [x] Data Review and interpretation [x] Patient assessment and monitoring of vital signs [x] Documentation [x] Medication orders and management History Interval history: Minimal responsive still intubated Fever of 100.1 Hospitalist Physical - Physical exam Narrative exam: Gen: Not in acute distress, intubated, on vent HEENT: Normocephalic, atraumatic Neck: supple, no JVD Heart: S1 and S2 reg, no murmurs, rubs or gallop Lungs: Clear to auscultation, no rhonchi, no wheeze Abd: soft, non tender, non distended, normal BS, Ext: No edema, no clubbing, no cyanosis Neuro: Minimal responsive, does not follow commands, - Constitutional Vitals: Temp Pulse Resp BP Pulse Ox 100.0 F H 148 H 23 144/78 95 04/06/19 08:00 04/06/19 06:00 04/06/19 06:00 04/06/19 06:00 04/06/19 06:00 General appearance: Present: other (intubated) Results - Labs CBC & Chem 7: 04/06/19 05:20 04/06/19 05:20 Labs: Laboratory Last Values WBC 15.1 K/mm3 (4.5-11.0) H 04/06/19 05:20 RBC 2.90 M/mm3 (3.65-5.03) L 04/06/19 05:20 Hgb 9.1 gm/dl (10.1-14.3) L 04/06/19 05:20 Hct 28.0 % (30.3-42.9) L 04/06/19 05:20 MCV 97 fl (79-97) 04/06/19 05:20 MCH 31 pg (28-32) 04/06/19 05:20 MCHC 33 % (30-34) 04/06/19 05:20 RDW 17.3 % (13.2-15.2) H 04/06/19 05:20 Plt Count 245 K/mm3 (140-440) 04/06/19 05:20 Lymph % (Auto) 16.9 % (13.4-35.0) 04/03/19 03:40 [place] % (Auto) 9.8 % (0.0-7.3) H 04/03/19 03:40 Eos % (Auto) 3.2 % (0.0-4.3) 04/03/19 03:40 Baso % (Auto) 0.4 % (0.0-1.8) 04/03/19 03:40 Lymph # 1.1 K/mm3 (1.2-5.4) L 04/03/19 03:40 [place] # 0.6 K/mm3 (0.0-0.8) 04/03/19 03:40 Eos # 0.2 K/mm3 (0.0-0.4) 04/03/19 03:40 Baso # 0.0 K/mm3 (0.0-0.1) 04/03/19 03:40 Add Manual Diff Complete 04/01/19 05:01 Total Counted 100 04/01/19 05:01 Seg Neutrophils % 69.7 % (40.0-70.0) 04/03/19 03:40 Seg Neuts % (Manual) 71.0 % (40.0-70.0) H 04/01/19 05:01 0 % 04/01/19 05:01 20.0 % (13.4-35.0) 04/01/19 05:01 Reactive Lymphs % (Man) 0 % 04/01/19 05:01 7.0 % (0.0-7.3) 04/01/19 05:01 2.0 % (0.0-4.3) 04/01/19 05:01 0 % (0.0-1.8) 04/01/19 05:01 0 % 04/01/19 05:01 0 % 04/01/19 05:01 0 % 04/01/19 05:01 0 % 04/01/19 05:01 Nucleated RBC % Not Reportable 04/01/19 05:01 Seg Neutrophils # 4.4 K/mm3 (1.8-7.7) 04/03/19 03:40 Seg Neutrophils # Man 4.8 K/mm3 (1.8-7.7) 04/01/19 05:01 Band Neutrophils # 0.0 K/mm3 04/01/19 05:01 1.4 K/mm3 (1.2-5.4) 04/01/19 05:01 Abs React Lymphs (Man) 0.0 K/mm3 04/01/19 05:01 0.5 K/mm3 (0.0-0.8) 04/01/19 05:01 0.1 K/mm3 (0.0-0.4) 04/01/19 05:01 0.0 K/mm3 (0.0-0.1) 04/01/19 05:01 0.0 K/mm3 04/01/19 05:01 0.0 K/mm3 04/01/19 05:01 0.0 K/mm3 04/01/19 05:01 Blast Cells # 0.0 K/mm3 04/01/19 05:01 WBC Morphology Not Reportable 04/01/19 05:01 Hypersegmented Neuts Not Reportable 04/01/19 05:01 Hyposegmented Neuts Not Reportable 04/01/19 05:01 Hypogranular Neuts Not Reportable 04/01/19 05:01 Not Reportable 04/01/19 05:01 Not Reportable 04/01/19 05:01 Not Reportable 04/01/19 05:01 Not Reportable 04/01/19 05:01 Not Reportable 04/01/19 05:01 Not Reportable 04/01/19 05:01 Not Reportable 04/01/19 05:01 Not Reportable 04/01/19 05:01 Plt Clumps, EDTA Not Reportable 04/01/19 05:01 Not Reportable 04/01/19 05:01 Not Reportable 04/01/19 05:01 Not Reportable 04/01/19 05:01 Plt Morphology Comment Not Reportable 04/01/19 05:01 RBC Morphology Normal 04/01/19 05:01 Dimorphic RBCs Not Reportable 04/01/19 05:01 Not Reportable 04/01/19 05:01 Not Reportable 04/01/19 05:01 Not Reportable 04/01/19 05:01 Not Reportable 04/01/19 05:01 Not Reportable 04/01/19 05:01 Not Reportable 04/01/19 05:01 Not Reportable 04/01/19 05:01 Not Reportable 04/01/19 05:01 Not Reportable 04/01/19 05:01 Not Reportable 04/01/19 05:01 Not Reportable 04/01/19 05:01 Not Reportable 04/01/19 05:01 Not Reportable 04/01/19 05:01 Not Reportable 04/01/19 05:01 Not Reportable 04/01/19 05:01 Not Reportable 04/01/19 05:01 Not Reportable 04/01/19 05:01 Not Reportable 04/01/19 05:01 Not Reportable 04/01/19 05:01 Acanthocytes (Spur) Not Reportable 04/01/19 05:01 Rouleaux Not Reportable 04/01/19 05:01 Not Reportable 04/01/19 05:01 Not Reportable 04/01/19 05:01 Not Reportable 04/01/19 05:01 Not Reportable 04/01/19 05:01 Hem Pathologist Commnt No 04/01/19 05:01 PT 13.9 Sec. (12.2-14.9) 04/01/19 17:14 INR 1.10 (0.87-1.13) 04/01/19 17:14 APTT 74.5 Sec. (24.2-36.6) H* 03/29/19 19:20 313 mg/dl (211-480) 04/01/19 17:14 4526.86 ng/mlDDU (0-234) H 04/06/19 00:06 Heparin Anti-Xa, Unfract Negative (Negative) 03/31/19 15:00 POC ABG pH 7.374 (7.35-7.45) 04/04/19 03:46 ABG pH 7.396 pH Units (7.350-7.450) 04/03/19 05:35 POC ABG pCO2 36.2 (35-45) 04/04/19 03:46 ABG pCO2 32.2 mm Hg 04/03/19 05:35 POC ABG pO2 96 (80-105) 04/04/19 03:46 ABG pO2 97.7 mm Hg (80.0-90.0) H 04/03/19 05:35 POC ABG HCO3 21.2 (22-26 mml/L) 04/04/19 03:46 ABG HCO3 19.3 mmol/L (20.0-26.0) L 04/03/19 05:35 POC ABG Total CO2 22 (23-27mmol/L) 04/04/19 03:46 POC ABG O2 Sat 97 04/04/19 03:46 ABG O2 Saturation 97.6 % (95.0-99.0) 04/03/19 05:35 ABG O2 Content 10.9 (0.0-44) 04/03/19 05:35 POC ABG Base Excess -4 ((-2) - (+3)mmol/L) 04/04/19 03:46 ABG Base Excess -5.0 mmol/L (-2.0-3.0) L 04/03/19 05:35 ABG Hemoglobin 8.0 gm/dl (12.0-16.0) L 04/03/19 05:35 ABG Carboxyhemoglobin 2.1 % (0.0-5.0) 04/03/19 05:35 ABG Methemoglobin 0.5 % (0.0-1.5) 04/03/19 05:35 VBG pH 6.800 (7.320-7.420) L* 03/29/19 19:47 95.1 % (95.0-99.0) 04/03/19 05:35 25 % 04/04/19 03:46 Sodium 145 mmol/L (137-145) 04/06/19 05:20 Potassium 3.6 mmol/L (3.6-5.0) D 04/06/19 05:20 Chloride 106.5 mmol/L (98-107) 04/06/19 05:20 Carbon Dioxide 25 mmol/L (22-30) 04/06/19 05:20 17 mmol/L 04/06/19 05:20 BUN 8 mg/dL (7-17) 04/06/19 05:20 0.2 mg/dL (0.7-1.2) L 04/06/19 05:20 Estimated GFR > 60 ml/min 04/06/19 05:20 40 % 04/06/19 05:20 Glucose 161 mg/dL (65-100) H 04/06/19 05:20 POC Glucose 191 (70-105) H 04/06/19 07:57 Lactic Acid 3.30 mmol/L (0.7-2.0) H* 03/31/19 07:50 Calcium 8.0 mg/dL (8.4-10.2) L 04/06/19 05:20 Phosphorus 2.20 mg/dL (2.5-4.5) L 04/03/19 03:40 Magnesium 2.60 mg/dL (1.7-2.3) H 03/30/19 05:26 Iron 26 ug/dL (37-170) L 03/31/19 08:20 TIBC 193 mcg/dL (250-450) L 03/31/19 08:20 0.60 mg/dL (0.1-1.2) 04/03/19 03:40 0.2 mg/dL (0-0.2) 04/02/19 07:48 0.5 mg/dL 04/02/19 07:48 AST 594 units/L (5-40) H 04/03/19 03:40 ALT 861 units/L (7-56) H 04/03/19 03:40 299 units/L (35-129) H 04/03/19 03:40 2465 units/L (30-135) H 03/30/19 05:26 CK-MB (CK-2) 52.7 ng/mL (0.0-4.0) H 03/30/19 05:26 CK-MB (CK-2) Rel Index 2.1 (0-4) 03/30/19 05:26 < 0.010 ng/mL (0.00-0.029) 04/06/19 05:20 2.40 mg/dL (0.00-1.30) H 03/30/19 12:57 4.4 g/dL (6.3-8.2) L 04/03/19 03:40 2.1 g/dL (3.9-5) L 04/03/19 03:40 0.9 % 04/03/19 03:40 See scanned result 03/31/19 15:00 Vitamin B12 > 2000 pg/mL (211-911) H 03/31/19 08:20 > 20 ng/mL (7.3-26.0) 03/31/19 08:20 HCG, Qual Negative (Negative) 03/29/19 19:20 Yellow (Yellow) 03/29/19 23:10 Slightly-cloudy (Clear) 03/29/19 23:10 6.0 (5.0-7.0) 03/29/19 23:10 Ur Specific [place] 1.021 (1.003-1.030) 03/29/19 23:10 100 mg/dl mg/dL (Negative) 03/29/19 23:10 >=500 mg/dL (Negative) 03/29/19 23:10 20 mg/dL (Negative) 03/29/19 23:10 Lg (Negative) 03/29/19 23:10 Neg (Negative) 03/29/19 23:10 Neg (Negative) 03/29/19 23:10 < 2.0 mg/dL (<2.0) 03/29/19 23:10 Ur Leukocyte Esterase Neg (Negative) 03/29/19 23:10 1.0 /HPF (0.0-6.0) 03/29/19 23:10 1.0 /HPF (0.0-6.0) 03/29/19 23:10 Few /HPF 03/29/19 23:10 Salicylates 0.8 mg/dL (2.8-20.0) L 03/30/19 Unknown Presumptive negative 03/29/19 23:10 Presumptive negative 03/29/19 23:10 Acetaminophen < 5.0 ug/mL (10.0-30.0) L 03/30/19 Unknown Ur Barbiturates Screen Presumptive negative 03/29/19 23:10 Ur Phencyclidine Scrn Presumptive negative 03/29/19 23:10 Ur Amphetamines Screen Presumptive negative 03/29/19 23:10 U Benzodiazepines Scrn Presumptive negative 03/29/19 23:10 Presumptive negative 03/29/19 23:10 U Marijuana (THC) Screen Presumptive negative 03/29/19 23:10 Disclamer 03/29/19 23:10 Heparin-induced Plt Ab Negative (Negative) 03/31/19 15:00 UF Heparin High Dose 0 % Release 03/31/19 15:00 FABIAN UFH Low Dose 0.1 0 % Release 03/31/19 15:00 FABIAN UFH Low Dose 0.5 0 % Release 03/31/19 15:00 Hepatitis A IgM Ab Non-reactive (NonReactive) 03/30/19 Unknown Hep Bs Antigen Non-reactive (Negative) 03/30/19 Unknown Hep B Core IgM Ab Non-reactive (NonReactive) 03/30/19 Unknown Non-reactive (NonReactive) 03/30/19 Unknown Flexitest 1 H 03/30/19 14:00 Blood Type O POSITIVE 03/30/19 03:30 Antibody Screen Negative 03/30/19 03:30 Crossmatch See Detail 03/30/19 03:30 Active Medications - Current Medications Current Medications: Generic Name Dose Route Start Last Admin Trade Name Freq PRN Reason Stop Dose Admin Acetaminophen 650 mg 03/29/19 23:34 04/01/19 23:38 Tylenol PO 650 mg Q4H PRN Administration Pain MILD(1-3)/Fever >100.5/WARE Lipase/Protease/Amylase 1 each 04/02/19 11:[address] 10,500 Unit FEEDTUBE PRN PRN For Clogged Feeding Tube Dextrose 0 ml 03/29/19 20:33 03/31/19 02:15 D50w (25gm) Syringe IV 10 ml PRN PRN Administration Hypoglycemia Enoxaparin Sodium 40 mg 04/05/19 22:00 04/05/19 23:27 Lovenox SUB-Q 40 mg QDAY@2200 ZAMZAM Administration Famotidine 20 mg 04/02/19 10:00 04/05/19 23:30 Pepcid PO 20 mg BID ZAMZAM Administration Fentanyl 50 mcg 04/05/19 11:00 04/06/19 08:33 Sublimaze IV 50 mcg Q2H PRN Administration Pain , Severe (7-10)/AGITATION Hydrophilic Ointment 1 applic 03/30/19 11:24 Vaseline Lip Therapy TP Q2HR PRN Dry Lips Norepinephrine 4 mg in 250 mls @ 7.5 mls/hr 03/29/19 21:00 04/01/19 19:00 Levophed Drip 4 Mg/Ns 250 Ml IV 0 mcg/min TITR ZAMZAM 0 mls/hr Titration Protocol 2 MCG/MIN Vasopressin 20 unit/ Sodium 101 mls @ 9.09 mls/hr 03/29/19 23:45 04/02/19 07:45 Chloride IV 0 units/min TITR ZAMZAM 0 mls/hr Titration Protocol 0.03 UNITS/MIN Phenylephrine HCl 100 mg/ 100 mls @ 3 mls/hr 03/30/19 01:15 03/30/19 15:15 Sodium Chloride IV 0 mcg/min TITR ZAMZAM 0 mls/hr Titration Protocol 50 MCG/MIN Metronidazole 500 mg in 100 mls @ 100 mls/hr 03/30/19 14:00 04/06/19 06:03 Flagyl 500 Mg/100 Ml IV 04/06/19 23:59 100 mls/hr Q8HR ZAMZAM Administration Cefepime HCl 2 gm in 100 mls @ 200 mls/hr 03/31/19 14:00 04/06/19 06:03 Maxipime/Ns 2 Gm/100 Ml IV 04/06/19 23:59 200 mls/hr Q8HR ZAMZAM Administration Insulin Glargine 10 units 04/05/19 22:00 04/05/19 23:18 Lantus SUB-Q 10 units QHS ZAMZAM Administration Insulin Human Regular 0 units 04/01/19 19:00 04/06/19 08:34 Humulin R SUB-Q 2 units Q4H ZAMZAM Administration Protocol Levetiracetam 500 mg 04/03/19 10:00 04/05/19 23:19 Keppra PO 500 mg BID ZAMZAM Administration Multi-Ingred Cream/Lotion/Oil/Oint 1 applic 03/30/19 11:24 03/31/19 04:28 Artificial Tears Ophth Oint OU 1 applic Q4HR PRN Administration Dry Eye(s) Ondansetron HCl 4 mg 03/29/19 23:34 Zofran IV Q8H PRN Nausea And Vomiting Simple Syrup 15 ml 04/02/19 11:44 Simple Syrup FEEDTUBE PRN PRN Hypoglycemia Simple Syrup 30 ml 04/02/19 11:44 Simple Syrup FEEDTUBE PRN PRN Hypoglycemia Sodium Bicarbonate 325 mg 04/02/19 11:44 Sodium Bicarbonate FEEDTUBE PRN PRN For Clogged Feeding Tube Sodium Chloride 10 ml 03/30/19 10:00 04/05/19 23:30 Sodium Chloride Flush Syringe 10 Ml IV 10 ml BID ZAMZAM Administration Sodium Chloride 10 ml 03/29/19 23:34 Sodium Chloride Flush Syringe 10 Ml IV PRN PRN LINE FLUSH Nutrition/Malnutrition Assess - Dietary Evaluation Nutrition/Malnutrition Findings: Nutrition Notes Start: 03/30/19 13:14 Freq: Status: Active Protocol: Document 04/04/19 10:13 LM (Rec: 04/04/19 10:17 LM [facility][id number]) Nutrition Notes Initial or Follow up Reassessment Current Diagnosis Diabetes,Sepsis,Respiratory Failure Other Pertinent Diagnosis s/p cardiac arrest, DKA, ARF, Shock liver Current Diet NPO Labs/Tests POC glu 131 Pertinent Medications Reviewed Height 5 ft Weight 52.2 kg [place] Body Weight (kg) 45.45 BMI 22.4 Weight change and time frame Wt change possibly due to edema in both arms. Subjective/Other Information Glucerna running at 50 ml/hr. Pt on vent and tolerating TF. Burn Absent Trauma Absent #1 Nutrition Diagnosis Inadequate oral intake Diagnosis Progress(for reassessment Continues documentation) Is patient on ventilator? Yes Is Patient Ambulatory and/or Out of Bed No REE-([facility]-confined to bed) 1392.552 Calculation Used for Recommendations [facility] Additional Notes Pro needs 1.2-2g/k-104g/ day Fluid needs 1ml/kcal Nutrition Intervention Change Diet Order: Continue TF Nutrition Support: Glucerna 1.2 at 50ml/hr with 80ml water flush q4h. Kcal 1,440 Protein (gm) 72 Fluid (mL) 966 Goal #1 Meet at least 75% of energy and protein needs Follow-Up By: 04/11/19 Additional Comments F/U for TF tolerance/rate
[2019-04-06] MEDS: PEPCID PO SCH ×2 (11:39→22:08)
[2019-04-06] MEDS: ARTIFICIAL TEARS OPHTH OINT OU PRN (11:39)
[2019-04-06] MEDS: KEPPRA PO SCH ×2 (11:39→22:08)
[2019-04-06] MEDS: SODIUM CHLORIDE FLUSH SYRINGE 10 ML IV SCH ×2 (11:40→22:35)
--- NOTE | 2019-04-06 13:14 | XRay Report ---
ABDOMEN 1 VIEW HISTORY: OG placement. COMPARISON: None. IMPRESSION: A nasogastric tube tip is in good position in the distal stomach. Lung bases are clear. Nonobstructive bowel gas pattern. Surgical clips in the midline mid abdomen. No radiopaque urinary st one disease. Signer Name: Antwon Haley MD Signed: 04/06/2019 1:09 PM Workstation Name: [id number]
--- NOTE | 2019-04-06 15:05 | Consultation ---
History of Present Illness Consult date: 04/06/19 Reason for consult: other Requesting physician: SEAN HARRELL Chief complaint: Abnormal liver on CT - History of present illness History of present illness: Patient is a 28-year-old female that presents emergency room in cardiac arrest. Patient found unresponsive by EMS. Report received from EMS. EMS states the patient was traveling from [place] to [place] and at 10:30 this morning got Robaxin to take a nap and it was her last known well time. EMS started chest compressions and intubated the patient. Chest CT scan was recently done due to concerns about a possible pulmonary embolism. On that CT, it was noted that she had an abnormal appearance of the liver. Radiology reported concern for an abscess. Gen. surgery was asked to consult for this issue. Patient is intubated and unable to give any history. There is no family in the room. Past History Past Medical History: diabetes, other (polysubstance abuse, history of seizures) Past Surgical History: Other (Unable to obtain) Social history: lives with family, IV drug use Family history: other (Unable to obtain) Medications and Allergies Allergies Allergy/AdvReac Type Severity Reaction Status Date / Time quetiapine [From Seroquel] Allergy Rash Verified 03/30/19 11:28 Home Medications Medication Instructions Recorded Confirmed Last Taken Type ALPRAZolam [Xanax TAB] 0.25 mg PO QID 04/02/19 04/02/19 Unknown History HYDROcodone/APAP 7.5-325 7.5 - 325 mg PO Q6H PRN 04/02/19 04/02/19 Unknown His tory Insulin Aspart [NovoLOG 100 5 units SQ QAC 04/02/19 04/02/19 Unknown History UNITS/ML VIAL] Insulin Detemir [Levemir VIAL] 5 unit SQ BID 04/02/19 04/02/19 Unknown History Lurasidone HCl [Latuda] 80 mg PO QHS 04/02/19 04/02/19 Unknown History Ondansetron [Zofran TAB] 4 mg PO BID PRN 04/02/19 04/02/19 Unknown History Active Meds: Active Medications Acetaminophen (Tylenol) 650 mg PO Q4H PRN PRN Reason: Pain MILD(1-3)/Fever >100.5/WARE Last Admin: 04/01/19 23:38 Dose: 650 mg Documented by: Lipase/Protease/Amylase (Pancreaze Dr 10,500 Unit) 1 each FEEDTUBE PRN PRN PRN Reason: For Clogged Feeding Tube Dextrose (D50w (25gm) Syringe) 0 ml IV PRN PRN PRN Reason: Hypoglycemia Last Admin: 03/31/19 02:15 Dose: 10 ml Documented by: Enoxaparin Sodium (Lovenox) 40 mg SUB-Q QDAY@2200 ZAMZAM Last Admin: 04/05/19 23:27 Dose: 40 mg Documented by: Famotidine (Pepcid) 20 mg PO BID ZAMZAM Last Admin: 04/06/19 11:39 Dose: 20 mg Documented by: Fentanyl (Sublimaze) 50 mcg IV Q2H PRN PRN Reason: Pain , Severe (7-10)/AGITATION Last Admin: 04/06/19 14:44 Dose: 50 mcg Documented by: Hydrophilic Ointment (Vaseline Lip Therapy) 1 applic TP Q2HR PRN PRN Reason: Dry Lips Norepinephrine (Levophed Drip 4 Mg/Ns 250 Ml) 4 mg in 250 mls @ 7.5 mls/hr IV TITR ZAMZAM; Protocol Last Titration: 04/01/19 19:00 Dose: 0 mcg/min, 0 mls/hr Documented by: Vasopressin 20 unit/ Sodium (Chloride) 101 mls @ 9.09 mls/hr IV TITR ZAMZAM; Protocol Last Titration: 04/02/19 07:45 Dose: 0 units/min, 0 mls/hr Documented by: Phenylephrine HCl 100 mg/ (Sodium Chloride) 100 mls @ 3 mls/hr IV TITR ZAMZAM; Protocol Last Titration: 03/30/19 15:15 Dose: 0 mcg/min, 0 mls/hr Documented by: Metronidazole (Flagyl 500 Mg/100 Ml) 500 mg in 100 mls @ 100 mls/hr IV Q8HR ZAMZAM Stop: 04/06/19 23:59 Last Admin: 04/06/19 14:45 Dose: 100 mls/hr Documented by: Cefepime HCl (Maxipime/Ns 2 Gm/100 Ml) 2 gm in 100 mls @ 200 mls/hr IV Q8HR ZAMZAM Stop: 04/06/19 23:59 Last Admin: 04/06/19 14:45 Dose: 200 mls/hr Documented by: Insulin Glargine (Lantus) 10 units SUB-Q QHS [facility] Last Admin: 04/05/19 23:18 Dose: 10 units Documented by: Insulin Human Regular (Humulin R) 0 units SUB-Q Q4H [facility]; Protocol Last Admin: 04/06/19 12:25 Dose: Not Given Documented by: Levetiracetam (Keppra) 500 mg PO BID [facility] Last Admin: 04/06/19 11:39 Dose: 500 mg Documented by: Multi-Ingred Cream/Lotion/Oil/Oint (Artificial Tears Ophth Oint) 1 applic OU Q4HR PRN PRN Reason: Dry Eye(s) Last Admin: 04/06/19 11:39 Dose: 1 applic Documented by: Ondansetron HCl (Zofran) 4 mg IV Q8H PRN PRN Reason: Nausea And Vomiting Simple Syrup (Simple Syrup) 15 ml FEEDTUBE PRN PRN PRN Reason: Hypoglycemia Simple Syrup (Simple Syrup) 30 ml FEEDTUBE PRN PRN PRN Reason: Hypoglycemia Sodium Bicarbonate (Sodium Bicarbonate) 325 mg FEEDTUBE PRN PRN PRN Reason: For Clogged Feeding Tube Sodium Chloride (Sodium Chloride Flush Syringe 10 Ml) 10 ml IV BID [facility] Last Admin: 04/06/19 11:40 Dose: 10 ml Documented by: Sodium Chloride (Sodium Chloride Flush Syringe 10 Ml) 10 ml IV PRN PRN PRN Reason: LINE FLUSH Review of Systems ROS unobtainable: due to endotracheal tube Exam Vital Signs Pulse Resp BP 96 H 16 69/33 03/29/19 19:15 03/29/19 19:15 03/29/19 19:15 - General physical appearance Positive: no distress, no pain, other (unresponsive) - ENT Positive: other (ETT in place) - Respiratory Positive: normal expansion, normal respiratory effort - Cardiovascular Rhythm: regular (tachycardia) - Breasts Breasts: skin changes (bruising noted on lateral aspect of right breast) - Abdomen Abdomen: Present: soft. Absent: masses, guarding, rigid - Integumentary other (bruising noted on right breast and a minimal amount in the right flank) Results - Labs 04/06/19 05:20 04/06/19 05:20 Abnormal lab results 04/05/19 04/05/19 04/05/19 Range/Units 14:46 18:19 20:35 WBC (4.5-11.0) K/mm3 RBC (3.65-5.03) M/mm3 Hgb (10.1-14.3) gm/dl Hct (30.3-42.9) % RDW (13.2-15.2) % D-Dimer (0-234) ng/mlDDU Creatinine (0.7-1.2) mg/dL Glucose (65-100) mg/dL POC Glucose 225 H 259 H 236 H (70-105) Calcium (8.4-10.2) mg/dL 04/05/19 04/06/19 04/06/19 Range/Units 23:11 00:06 03:14 WBC (4.5-11.0) K/mm3 RBC (3.65-5.03) M/mm3 Hgb (10.1-14.3) gm/dl Hct (30.3-42.9) % RDW (13.2-15.2) % D-Dimer 4526.86 H (0-234) ng/mlDDU Creatinine (0.7-1.2) mg/dL Glucose (65-100) mg/dL POC Glucose 205 H 228 H (70-105) Calcium (8.4-10.2) mg/dL 04/06/19 04/06/19 04/06/19 Range/Units 05:20 05:20 07:57 WBC 15.1 H (4.5-11.0) K/mm3 RBC 2.90 L (3.65-5.03) M/mm3 Hgb 9.1 L (10.1-14.3) gm/dl Hct 28.0 L (30.3-42.9) % RDW 17.3 H (13.2-15.2) % D-Dimer (0-234) ng/mlDDU Creatinine 0.2 L (0.7-1.2) mg/dL Glucose 161 H (65-100) mg/dL POC Glucose 191 H (70-105) Calcium 8.0 L (8.4-10.2) mg/dL 04/06/19 Range/Units 12:09 WBC (4.5-11.0) K/mm3 RBC (3.65-5.03) M/mm3 Hgb (10.1-14.3) gm/dl Hct (30.3-42.9) % RDW (13.2-15.2) % D-Dimer (0-234) ng/mlDDU Creatinine (0.7-1.2) mg/dL Glucose (65-100) mg/dL POC Glucose 143 H (70-105) Calcium (8.4-10.2) mg/dL Diabetes panel 04/06/19 Range/Units 05:20 Sodium 145 (137-145) mmol/L Potassium 3.6 D (3.6-5.0) mmol/L Chloride 106.5 (98-107) mmol/L Carbon Dioxide 25 (22-30) mmol/L BUN 8 (7-17) mg/dL Creatinine 0.2 L (0.7-1.2) mg/dL Glucose 161 H (65-100) mg/dL Calcium 8.0 L (8.4-10.2) mg/dL Calcium panel 04/06/19 Range/Units 05:20 Calcium 8.0 L (8.4-10.2) mg/dL Pituitary panel 04/06/19 Range/Units 05:20 Sodium 145 (137-145) mmol/L Potassium 3.6 D (3.6-5.0) mmol/L Chloride 106.5 (98-107) mmol/L Carbon Dioxide 25 (22-30) mmol/L BUN 8 (7-17) mg/dL Creatinine 0.2 L (0.7-1.2) mg/dL Glucose 161 H (65-100) mg/dL Calcium 8.0 L (8.4-10.2) mg/dL Adrenal panel 04/06/19 Range/Units 05:20 Sodium 145 (137-145) mmol/L Potassium 3.6 D (3.6-5.0) mmol/L Chloride 106.5 (98-107) mmol/L Carbon Dioxide 25 (22-30) mmol/L BUN 8 (7-17) mg/dL Creatinine 0.2 L (0.7-1.2) mg/dL Glucose 161 H (65-100) mg/dL Calcium 8.0 L (8.4-10.2) mg/dL - Imaging CT scan - chest: report reviewed, image reviewed Assessment and Plan - Patient Problems (1) Abnormal CT of liver Current Visit: Yes Status: Acute Plan to address problem: Patient with a very large fluid collection in the liver on CT scan. Based on her history and exam, I am more concerned that this is secondary to trauma from cardiac compressions. There is clearly evidence of chest wall trauma in the area of the right lobe of the liver where we see a majority of the fluid. I would expect for an abscess that her liver enzymes should be rising as opposed to getting better. Her white count had been going down up until his last check. I favor hematoma over abscess. Having said that, if the team is concerned that she has evidence of a new infection and wants to pursue the liver as the source, I would begin by getting a dedicated CT of the abdomen with contrast using a liver protocol. A triple phase CT scan may be helpful here. It may be useful to consult with radiology beforehand to optimize the CT order. If that study has concerning findings, then would ask interventional radiology to aspirate the fluid collection and possibly leave a drain depending on what comes out. If there is infection and the IR drain is not adequately managing it, then surgical intervention would be appropriate to consider. Please call with questions Time=35min
--- NOTE | 2019-04-06 15:53 | Consultation ---
History of Present Illness Consult date: 04/06/19 Consult reason: tachycardia History of present illness: This is a 29-year-old woman with history of diabetes, polysubstance abuse, history of seizures. She was admitted 03/29/2019 with cardiac arrest and DKA. It's reported the patient traveling with a friend from [place]. In their travels the friend noticed that she was unresponsive in the backseat. EMS was called, and the patient was brought in. Initial labs shows multiple severe metabolic abnormalities including a blood glucose of 2196, hyponatremia at 118, elevated liver transaminase, leukocytosis, acute renal failure and severe hyperkalemia, potassium of 9. Patient is also on contract precaution for head lice. Further evaluation with an MRI brain showed cortical ribboning and ev idence of diffuse anoxic brain injury. A cardiac consultation has been requested for tachycardia. Noted febrile today. Her presenting ECG is sinus rhythm with peaked Twave, secondary to hyperkalemia. An echocardiogram this admission showed a normal left ventricular systolic function, EF 50%. Past History Past Medical History: diabetes, other (polysubstance abuse, history of seizures) Past Surgical History: Other (Unable to obtain) Social history: lives with family, IV drug use Family history: other (Unable to obtain) Medications and Allergies Allergies Allergy/AdvReac Type Severity Reaction Status Date / Time quetiapine [From Seroquel] Allergy Rash Verified 03/30/19 11:28 Home Medications Medication Instructions Recorded Confirmed Last Taken Type ALPRAZolam [Xanax TAB] 0.25 mg PO QID 04/02/19 04/02/19 Unknown History HYDROcodone/APAP 7.5-325 7.5 - 325 mg PO Q6H PRN 04/02/19 04/02/19 Unknown History Insulin Aspart [NovoLOG 100 5 units SQ QAC 04/02/19 04/02/19 Unknown History UNITS/ML VIAL] Insulin Detemir [Levemir VIAL] 5 unit SQ BID 04/02/19 04/02/19 Unknown History Lurasidone HCl [Latuda] 80 mg PO QHS 04/02/19 04/02/19 Unknown History Ondansetron [Zofran TAB] 4 mg PO BID PRN 04/02/19 04/02/19 Unknown History Active Meds: Active Medications Acetaminophen (Tylenol) 650 mg PO Q4H PRN PRN Reason: Pain MILD(1-3)/Fever >100.5/WARE Last Admin: 04/01/19 23:38 Dose: 650 mg Documented by: Lipase/Protease/Amylase (Pancreaze Dr 10,500 Unit) 1 each FEEDTUBE PRN PRN PRN Reason: For Clogged Feeding Tube Dextrose (D50w (25gm) Syringe) 0 ml IV PRN PRN PRN Reason: Hypoglycemia Last Admin: 03/31/19 02:15 Dose: 10 ml Documented by: Enoxaparin Sodium (Lovenox) 40 mg SUB-Q QDAY@2200 [facility] Last Admin: 04/05/19 23:27 Dose: 40 mg Documented by: Famotidine (Pepcid) 20 mg PO BID [facility] Last Admin: 04/06/19 11:39 Dose: 20 mg Documented by: Fentanyl (Sublimaze) 50 mcg IV Q2H PRN PRN Reason: Pain , Severe (7-10)/AGITATION Last Admin: 04/06/19 14:44 Dose: 50 mcg Documented by: Hydrophilic Ointment (Vaseline Lip Therapy) 1 applic TP Q2HR PRN PRN Reason: Dry Lips Norepinephrine (Levophed Drip 4 Mg/Ns 250 Ml) 4 mg in 250 mls @ 7.5 mls/hr IV TITR [facility]; Protocol Last Titration: 04/01/19 19:00 Dose: 0 mcg/min, 0 mls/hr Documented by: Vasopressin 20 unit/ Sodium (Chloride) 101 mls @ 9.09 mls/hr IV TITR [facility]; Protocol Last Titration: 04/02/19 07:45 Dose: 0 units/min, 0 mls/hr Documented by: Phenylephrine HCl 100 mg/ (Sodium Chloride) 100 mls @ 3 mls/hr IV TITR [facility]; Protocol Last Titration: 03/30/19 15:15 Dose: 0 mcg/min, 0 mls/hr Documented by: Metronidazole (Flagyl 500 Mg/100 Ml) 500 mg in 100 mls @ 100 mls/hr IV Q8HR [facility] Stop: 04/06/19 23:59 Last Admin: 04/06/19 14:45 Dose: 100 mls/hr Documented by: Cefepime HCl (Maxipime/Ns 2 Gm/100 Ml) 2 gm in 100 mls @ 200 mls/hr IV Q8HR [facility] Stop: 04/06/19 23:59 Last Admin: 04/06/19 14:45 Dose: 200 mls/hr Documented by: Insulin Glargine (Lantus) 10 units SUB-Q QHS [facility] Last Admin: 04/05/19 23:18 Dose: 10 units Documented by: Insulin Human Regular (Humulin R) 0 units SUB-Q Q4H [facility]; Protocol Last Admin: 04/06/19 12:25 Dose: Not Given Documented by: Levetiracetam (Keppra) 500 mg PO BID [facility] Last Admin: 04/06/19 11:39 Dose: 500 mg Documented by: Multi-Ingred Cream/Lotion/Oil/Oint (Artificial Tears Ophth Oint) 1 applic OU Q4HR PRN PRN Reason: Dry Eye(s) Last Admin: 04/06/19 11:39 Dose: 1 applic Documented by: Ondansetron HCl (Zofran) 4 mg IV Q8H PRN PRN Reason: Nausea And Vomiting Simple Syrup (Simple Syrup) 15 ml FEEDTUBE PRN PRN PRN Reason: Hypoglycemia Simple Syrup (Simple Syrup) 30 ml FEEDTUBE PRN PRN PRN Reason: Hypoglycemia Sodium Bicarbonate (Sodium Bicarbonate) 325 mg FEEDTUBE PRN PRN PRN Reason: For Clogged Feeding Tube Sodium Chloride (Sodium Chloride Flush Syringe 10 Ml) 10 ml IV BID [facility] Last Admin: 04/06/19 11:40 Dose: 10 ml Documented by: Sodium Chloride (Sodium Chloride Flush Syringe 10 Ml) 10 ml IV PRN PRN PRN Reason: LINE FLUSH Physical Examination Vital Signs Pulse Resp BP 96 H 16 69/33 03/29/19 19:15 03/29/19 19:15 03/29/19 19:15 General appearance: other (unresponsive on the vent) Cardiac: Positive: Tachycardia Results 04/06/19 05:20 04/06/19 05:20 CBC 04/06/19 Range/Units 05:20 WBC 15.1 H (4.5-11.0) K/mm3 RBC 2.90 L (3.65-5.03) M/mm3 Hgb 9.1 L (10.1-14.3) gm/dl Hct 28.0 L (30.3-42.9) % Plt Count 245 (140-440) K/mm3 Comprehensive Metabolic Panel 04/06/19 Range/Units 05:20 Sodium 145 (137-145) mmol/L Potassium 3.6 D (3.6-5.0) mmol/L Chloride 106.5 (98-107) mmol/L Carbon Dioxide 25 (22-30) mmol/L BUN 8 (7-17) mg/dL Creatinine 0.2 L (0.7-1.2) mg/dL Glucose 161 H (65-100) mg/dL Calcium 8.0 L (8.4-10.2) mg/dL Assessment and Plan Anoxic brain injury Severe DKA Severe Anemia s/p blood transfusion Head lice Multiple metabolic abnormalities Reflex sinus tachycardia Hx of Seizure An echocardiogram this admission showed a normal left ventricular systolic function, EF 50%.
--- NOTE | 2019-04-06 20:01 | Progress Note ---
Assessment and Plan Patient is a 28-year-old woman with history of diabetes, polysubstance abuse, history of seizures. She presented on 03/29/2019 after having a cardiac arrest. The patient was given CPR and return to spontaneous circulation. According the patient's clinical findings, it is likely that she's had anoxic brain injury. Additionally, the patient has a history of seizures, and was noted to have a seizure-like event during this admission. Plan: 1. Anoxic brain injury: - CT head unremarkable - MRI brain showed cortical ribboning, and evidence of diffuse anoxic brain injury. - Continue supportive care per ICU and primary teams - I discussed at length the patient's mother regarding her prognosis and plan of care. The patient's mother stated that the patient had made clear in the past that she did not want to have a tracheostomy or a PEG tube placed in the future if her chance of recovery was minimal, she has had a PEG tube in the past with previous illnesses. I discussed with the mother regarding prognosis, and that at this time it is uncertain as to the extent of neurologic recovery she will have, and the timeline that that recovery will occur within. I further discussed that the patient currently displays evidence of brainstem reflexes which are intact, and that the patient is therefore not brain . Mother is currently out of state, as she lives in [place], and stated that she would like to explore options of transferring patient back to [facility], [place] to be closer to family. - Recommend risk management/ethics team consult for review of plans of care with family, given patient's previous stated directives. 2. History of seizures: - EEG: generalized slowing with low amplitude. No seizures or epileptiform activity. - Continue keppra 3. Aspiration PNA/Acute liver failure/Sepsis/Shock: - Continue supportive care per ICU/ID/primary teams - Will sign off as I am not covering the neurology service over the weekend. Recommend for neurologist covering weekend to be consulted for further neurologic monitoring and management. - Thank you for allowing me to take part in the care of this patient. Lorenzo Farley MD Neurology Subjective Date of service: 04/06/19 Principal diagnosis: Ac Hypoxemic Resp Failure; DKA; Severe sepsis with shock; ANGELICA Interval history: No acute events overnight. Objective - Exam Narrative Exam: Patient is intubated, comatose. Pupils are equal, round, sluggishly reactive to light. Corneal reflexes are intact. Cough/gag reflexes intact. Patient withdraws to pain in all extremities. Reflexes 3+ throughout. - Vital Sign Vital Signs - 12hr 04/06/19 04/06/19 04/06/19 08:01 08:59 09:00 Temperature Pulse Rate 150 H 128 H 126 H Respiratory 29 H 16 Rate Blood Pressure 166/89 98/51 102/46 O2 Sat by Pulse 97 97 Oximetry 04/06/19 04/06/19 04/06/19 10:00 11:00 12:00 Temperature 99.6 F Pulse Rate 120 H 131 H 112 H Respiratory 15 21 12 Rate Blood Pressure 101/53 110/77 95/49 O2 Sat by Pulse 97 97 Oximetry 04/06/19 04/06/19 04/06/19 12:20 13:01 14:00 Temperature Pulse Rate 112 H 132 H 135 H Respiratory 16 27 H 21 Rate Blood Pressure 95/49 95/49 127/79 O2 Sat by Pulse 98 96 97 Oximetry 04/06/19 04/06/19 04/06/19 15:00 16:00 17:00 Temperature 100.1 F H Pulse Rate 121 H 129 H 132 H Respiratory 16 15 19 Rate Blood Pressure 98/53 116/71 104/61 O2 Sat by Pulse 97 97 96 Oximetry 04/06/19 04/06/19 04/06/19 17:05 18:01 19:00 Temperature Pulse Rate 138 H 144 H 116 H Respiratory 23 27 H 16 Rate Blood Pressure 104/61 119/71 95/48 O2 Sat by Pulse 96 97 97 Oximetry 04/06/19 19:56 Temperature 99.6 F Pulse Rate Respiratory Rate Blood Pressure O2 Sat by Pulse Oximetry - General Apperance Constitutional: acutely ill - EENT EENT: ATNC, PERRL, mucous membranes moist - Respiratory Respiratory: decreased breath sounds - Cardiovascular Cardiovascular: regular rate, normal S1, normal S2 Extremities: no clubbing, cyanosis, no inflammation - Gastrointestinal Gastrointestinal: normoactive bowel sounds, soft, non-tender - Laboratory Findings CBC and BMP: 04/06/19 05:20 04/06/19 05:20 Abnormal Lab Findings: Abnormal Labs 03/29/19 03/29/19 03/29/19 19:11 19:20 19:20 WBC 26.7 H RBC 2.52 L Hgb 8.1 L Hct MCV 148 H MCH MCHC 22 L RDW 18.5 H Plt Count [place] % (Auto) Lymph # Seg Neuts % (Manual) 82.0 H Lymphocytes % (Manual) 7.0 L Nucleated RBC % Seg Neutrophils # Man 21.9 H Lymphocytes # (Manual) Monocytes # (Manual) 1.9 H PT 21.8 H INR 1.95 H APTT 74.5 H* D-Dimer POC ABG pH ABG pH POC ABG pO2 ABG pO2 ABG HCO3 ABG O2 Saturation ABG Base Excess ABG Hemoglobin VBG pH Oxyhemoglobin Sodium Potassium Chloride Carbon Dioxide BUN Creatinine Glucose POC Glucose > 500 H Lactic Acid Calcium Phosphorus Magnesium Iron TIBC Direct Bilirubin AST ALT Alkaline Phosphatase Total Creatine Kinase CK-MB (CK-2) C-Reactive Protein Total Protein Albumin Vitamin B12 Salicylates Acetaminophen Miscellaneous Test Crossmatch 03/29/19 03/29/19 03/29/19 19:20 19:47 20:59 WBC RBC Hgb Hct MCV MCH MCHC RDW Plt Count [place] % (Auto) Lymph # Seg Neuts % (Manual) Lymphocytes % (Manual) Nucleated RBC % Seg Neutrophils # Man Lymphocytes # (Manual) Monocytes # (Manual) PT INR APTT D-Dimer POC ABG pH 6.892 L ABG pH POC ABG pO2 236 H ABG pO2 ABG HCO3 ABG O2 Saturation ABG Base Excess ABG Hemoglobin VBG pH 6.800 L* Oxyhemoglobin Sodium 118 L* Potassium 9.0 H* Chloride 64.5 L Carbon Dioxide 7 L* BUN 53 H Creatinine 2.1 H Glucose 2196 H* POC Glucose Lactic Acid Calcium 12.4 H* Phosphorus Magnesium Iron TIBC Direct Bilirubin AST 3900 H ALT 1034 H Alkaline Phosphatase 316 H Total Creatine Kinase CK-MB (CK-2) C-Reactive Protein Total Protein 5.1 L Albumin 2.8 L Vitamin B12 Salicylates Acetaminophen Miscellaneous Test Crossmatch 03/29/19 03/29/19 03/29/19 22:45 22:45 22:45 WBC RBC Hgb Hct MCV MCH MCHC RDW Plt Count [place] % (Auto) Lymph # Seg Neuts % (Manual) Lymphocytes % (Manual) Nucleated RBC % Seg Neutrophils # Man Lymphocytes # (Manual) Monocytes # (Manual) PT INR APTT D-Dimer POC ABG pH ABG pH POC ABG pO2 ABG pO2 ABG HCO3 ABG O2 Saturation ABG Base Excess ABG Hemoglobin VBG pH Oxyhemoglobin Sodium 132 L D Potassium 7.0 H* Chloride 84.3 L Carbon Dioxide 3 L* BUN 48 H Creatinine 1.8 H Glucose 1779 H* POC Glucose Lactic Acid Calcium Phosphorus 21.70 H Magnesium 4.70 H Iron TIBC Direct Bilirubin AST ALT Alkaline Phosphatase Total Creatine Kinase 363 H CK-MB (CK-2) C-Reactive Protein Total Protein Albumin Vitamin B12 Salicylates Acetaminophen Miscellaneous Test Crossmatch 03/29/19 03/29/19 03/30/19 Unknown Unknown 00:11 WBC RBC Hgb Hct MCV MCH MCHC RDW Plt Count [place] % (Auto) Lymph # Seg Neuts % (Manual) Lymphocytes % (Manual) Nucleated RBC % Seg Neutrophils # Man Lymphocytes # (Manual) Monocytes # (Manual) PT INR APTT D-Dimer POC ABG pH ABG pH POC ABG pO2 ABG pO2 ABG HCO3 ABG O2 Saturation ABG Base Excess ABG Hemoglobin VBG pH Oxyhemoglobin Sodium 122 L Potassium 7.9 H* 6.4 H* Chloride 75.3 L 89.7 L Carbon Dioxide 3 L* 12 L D BUN 52 H 46 H Creatinine 2.0 H 1.7 H Glucose 2043 H* 1591 H* POC Glucose Lactic Acid Calcium 7.8 L Phosphorus 19.30 H Magnesium 3.90 H Iron TIBC Direct Bilirubin AST ALT Alkaline Phosphatase Total Creatine Kinase CK-MB (CK-2) C-Reactive Protein Total Protein Albumin Vitamin B12 Salicylates Acetaminophen Miscellaneous Test Crossmatch 03/30/19 03/30/19 03/30/19 00:11 02:14 02:14 WBC RBC Hgb Hct MCV MCH MCHC RDW Plt Count [place] % (Auto) Lymph # Seg Neuts % (Manual) Lymphocytes % (Manual) Nucleated RBC % Seg Neutrophils # Man Lymphocytes # (Manual) Monocytes # (Manual) PT INR APTT D-Dimer POC ABG pH ABG pH POC ABG pO2 ABG pO2 ABG HCO3 ABG O2 Saturation ABG Base Excess ABG Hemoglobin VBG pH Oxyhemoglobin Sodium Potassium Chloride Carbon Dioxide 9 L* BUN 45 H Creatinine 1.7 H Glucose 1155 H* POC Glucose Lactic Acid Calcium 7.9 L Phosphorus 10.90 H D 5.30 H D Magnesium 3.10 H 2.90 H Iron TIBC Direct Bilirubin AST ALT Alkaline Phosphatase Total Creatine Kinase CK-MB (CK-2) C-Reactive Protein Total Protein Albumin Vitamin B12 Salicylates Acetaminophen Miscellaneous Test Crossmatch 03/30/19 03/30/19 03/30/19 03:15 03:30 04:23 WBC 18.0 H RBC 2.31 L Hgb 7.3 L Hct 23.8 L D MCV 103 H MCH MCHC RDW 17.1 H Plt Count [place] % (Auto) Lymph # Seg Neuts % (Manual) 79.0 H Lymphocytes % (Manual) Nucleated RBC % Seg Neutrophils # Man 14.2 H Lymphocytes # (Manual) Monocytes # (Manual) PT INR APTT D-Dimer POC ABG pH 7.251 L ABG pH POC ABG pO2 156 H ABG pO2 ABG HCO3 ABG O2 Saturation ABG Base Excess ABG Hemoglobin VBG pH Oxyhemoglobin Sodium Potassium Chloride Carbon Dioxide BUN Creatinine Glucose POC Glucose Lactic Acid Calcium Phosphorus Magnesium Iron TIBC Direct Bilirubin AST ALT Alkaline Phosphatase Total Creatine Kinase CK-MB (CK-2) C-Reactive Protein Total Protein Albumin Vitamin B12 Salicylates Acetaminophen Miscellaneous Test Crossmatch See Detail 03/30/19 03/30/19 03/30/19 05:26 05:26 10:38 WBC RBC Hgb Hct MCV MCH MCHC RDW Plt Count [place] % (Auto) Lymph # Seg Neuts % (Manual) Lymphocytes % (Manual) Nucleated RBC % Seg Neutrophils # Man Lymphocytes # (Manual) Monocytes # (Manual) PT INR APTT D-Dimer POC ABG pH ABG pH POC ABG pO2 ABG pO2 ABG HCO3 ABG O2 Saturation ABG Base Excess ABG Hemoglobin VBG pH Oxyhemoglobin Sodium 158 H D Potassium 3.5 L Chloride 109.3 H Carbon Dioxide 19 L D BUN 40 H Creatinine 1.5 H Glucose 760 H* POC Glucose 380 H Lactic Acid Calcium 7.3 L Phosphorus Magnesium 2.60 H Iron TIBC Direct Bilirubin AST 59209 H ALT 2156 H Alkaline Phosphatase 271 H Total Creatine Kinase 2465 H CK-MB (CK-2) 52.7 H C-Reactive Protein Total Protein 4.5 L Albumin 2.4 L Vitamin B12 Salicylates Acetaminophen Miscellaneous Test Crossmatch 03/30/19 03/30/19 03/30/19 11:08 12:25 12:57 WBC RBC Hgb Hct MCV MCH MCHC RDW Plt Count [place] % (Auto) Lymph # Seg Neuts % (Manual) Lymphocytes % (Manual) Nucleated RBC % Seg Neutrophils # Man Lymphocytes # (Manual) Monocytes # (Manual) PT INR APTT D-Dimer POC ABG pH ABG pH POC ABG pO2 ABG pO2 ABG HCO3 ABG O2 Saturation ABG Base Excess ABG Hemoglobin VBG pH Oxyhemoglobin Sodium 156 H Potassium 3.2 L Chloride 116.4 H Carbon Dioxide 21 L BUN 37 H Creatinine Glucose 162 H POC Glucose 263 H 196 H Lactic Acid Calcium 7.2 L Phosphorus Magnesium Iron TIBC Direct Bilirubin AST ALT Alkaline Phosphatase Total Creatine Kinase CK-MB (CK-2) C-Reactive Protein Total Protein Albumin Vitamin B12 Salicylates Acetaminophen Miscellaneous Test Crossmatch 03/30/19 03/30/19 03/30/19 12:57 12:57 12:57 WBC RBC Hgb Hct MCV MCH MCHC RDW Plt Count [place] % (Auto) Lymph # Seg Neuts % (Manual) Lymphocytes % (Manual) Nucleated RBC % Seg Neutrophils # Man Lymphocytes # (Manual) Monocytes # (Manual) PT 21.0 H INR 1.86 H APTT D-Dimer POC ABG pH ABG pH POC ABG pO2 ABG pO2 ABG HCO3 ABG O2 Saturation ABG Base Excess ABG Hemoglobin VBG pH Oxyhemoglobin Sodium Potassium Chloride Carbon Dioxide BUN Creatinine Glucose POC Glucose Lactic Acid 9.00 H* Calcium Phosphorus Magnesium Iron TIBC Direct Bilirubin AST ALT Alkaline Phosphatase Total Creatine Kinase CK-MB (CK-2) C-Reactive Protein 2.40 H Total Protein Albumin Vitamin B12 Salicylates Acetaminophen Miscellaneous Test Crossmatch 03/30/19 03/30/19 03/30/19 13:23 14:00 14:47 WBC RBC Hgb Hct MCV MCH MCHC RDW Plt Count [place] % (Auto) Lymph # Seg Neuts % (Manual) Lymphocytes % (Manual) Nucleated RBC % Seg Neutrophils # Man Lymphocytes # (Manual) Monocytes # (Manual) PT INR APTT D-Dimer POC ABG pH ABG pH POC ABG pO2 ABG pO2 ABG HCO3 ABG O2 Saturation ABG Base Excess ABG Hemoglobin VBG pH Oxyhemoglobin Sodium Potassium Chloride Carbon Dioxide BUN Creatinine Glucose POC Glucose 176 H 245 H Lactic Acid Calcium Phosphorus Magnesium Iron TIBC Direct Bilirubin AST ALT Alkaline Phosphatase Total Creatine Kinase CK-MB (CK-2) C-Reactive Protein Total Protein Albumin Vitamin B12 Salicylates Acetaminophen Miscellaneous Test Flexitest 1 H Crossmatch 03/30/19 03/30/19 03/30/19 16:11 17:11 17:46 WBC RBC Hgb Hct MCV MCH MCHC RDW Plt Count [place] % (Auto) Lymph # Seg Neuts % (Manual) Lymphocytes % (Manual) Nucleated RBC % Seg Neutrophils # Man Lymphocytes # (Manual) Monocytes # (Manual) PT INR APTT D-Dimer POC ABG pH ABG pH POC ABG pO2 ABG pO2 ABG HCO3 ABG O2 Saturation ABG Base Excess ABG Hemoglobin VBG pH Oxyhemoglobin Sodium Potassium Chloride Carbon Dioxide BUN Creatinine Glucose POC Glucose 181 H 167 H 125 H Lactic Acid Calcium Phosphorus Magnesium Iron TIBC Direct Bilirubin AST ALT Alkaline Phosphatase Total Creatine Kinase CK-MB (CK-2) C-Reactive Protein Total Protein Albumin Vitamin B12 Salicylates Acetaminophen Miscellaneous Test Crossmatch 03/30/19 03/30/19 03/30/19 18:59 21:31 22:19 WBC RBC Hgb Hct MCV MCH MCHC RDW Plt Count [place] % (Auto) Lymph # Seg Neuts % (Manual) Lymphocytes % (Manual) Nucleated RBC % Seg Neutrophils # Man Lymphocytes # (Manual) Monocytes # (Manual) PT INR APTT D-Dimer POC ABG pH ABG pH POC ABG pO2 ABG pO2 ABG HCO3 ABG O2 Saturation ABG Base Excess ABG Hemoglobin VBG pH Oxyhemoglobin Sodium Potassium Chloride Carbon Dioxide BUN Creatinine Glucose POC Glucose 140 H 166 H 115 H Lactic Acid Calcium Phosphorus Magnesium Iron TIBC Direct Bilirubin AST ALT Alkaline Phosphatase Total Creatine Kinase CK-MB (CK-2) C-Reactive Protein Total Protein Albumin Vitamin B12 Salicylates Acetaminophen Miscellaneous Test Crossmatch 03/30/19 03/30/19 03/30/19 23:13 Unknown Unknown WBC RBC Hgb Hct MCV MCH MCHC RDW Plt Count [place] % (Auto) Lymph # Seg Neuts % (Manual) Lymphocytes % (Manual) Nucleated RBC % Seg Neutrophils # Man Lymphocytes # (Manual) Monocytes # (Manual) PT INR APTT D-Dimer POC ABG pH ABG pH POC ABG pO2 ABG pO2 47.8 L ABG HCO3 18.8 L ABG O2 Saturation 83.8 L ABG Base Excess -5.4 L ABG Hemoglobin 6.8 L VBG pH Oxyhemoglobin 81.8 L Sodium 157 H Potassium 3.3 L Chloride 117.9 H Carbon Dioxide 20 L BUN 36 H Creatinine Glucose 150 H POC Glucose 112 H Lactic Acid Calcium 7.2 L Phosphorus Magnesium Iron TIBC Direct Bilirubin AST ALT Alkaline Phosphatase Total Creatine Kinase CK-MB (CK-2) C-Reactive Protein Total Protein Albumin Vitamin B12 Salicylates Acetaminophen Miscellaneous Test Crossmatch 03/30/19 03/30/19 03/31/19 Unknown Unknown 00:03 WBC RBC Hgb Hct MCV MCH MCHC RDW Plt Count [place] % (Auto) Lymph # Seg Neuts % (Manual) Lymphocytes % (Manual) Nucleated RBC % Seg Neutrophils # Man Lymphocytes # (Manual) Monocytes # (Manual) PT INR APTT D-Dimer POC ABG pH ABG pH POC ABG pO2 ABG pO2 ABG HCO3 ABG O2 Saturation ABG Base Excess ABG Hemoglobin VBG pH Oxyhemoglobin Sodium Potassium Chloride Carbon Dioxide BUN Creatinine Glucose POC Glucose 188 H Lactic Acid Calcium Phosphorus Magnesium Iron TIBC Direct Bilirubin AST ALT Alkaline Phosphatase Total Creatine Kinase CK-MB (CK-2) C-Reactive Protein Total Protein Albumin Vitamin B12 Salicylates 0.8 L Acetaminophen < 5.0 L Miscellaneous Test Crossmatch 03/31/19 03/31/19 03/31/19 01:18 03:07 03:50 WBC RBC Hgb Hct MCV MCH MCHC RDW Plt Count [place] % (Auto) Lymph # Seg Neuts % (Manual) Lymphocytes % (Manual) Nucleated RBC % Seg Neutrophils # Man Lymphocytes # (Manual) Monocytes # (Manual) PT INR APTT D-Dimer POC ABG pH ABG pH 7.525 H POC ABG pO2 ABG pO2 178.0 H ABG HCO3 19.5 L ABG O2 Saturation 99.2 H ABG Base Excess -3.1 L ABG Hemoglobin 5.8 L VBG pH Oxyhemoglobin Sodium Potassium Chloride Carbon Dioxide BUN Creatinine Glucose POC Glucose 114 H 107 H Lactic Acid Calcium Phosphorus Magnesium Iron TIBC Direct Bilirubin AST ALT Alkaline Phosphatase Total Creatine Kinase CK-MB (CK-2) C-Reactive Protein Total Protein Albumin Vitamin B12 Salicylates Acetaminophen Miscellaneous Test Crossmatch 03/31/19 03/31/19 03/31/19 03:51 03:51 04:05 WBC RBC 1.89 L Hgb 6.1 L Hct 18.2 L* MCV MCH MCHC RDW 17.7 H Plt Count 89 L [place] % (Auto) Lymph # Seg Neuts % (Manual) 86.0 H Lymphocytes % (Manual) 10.0 L Nucleated RBC % 1.0 H Seg Neutrophils # Man Lymphocytes # (Manual) 0.7 L Monocytes # (Manual) PT INR APTT D-Dimer POC ABG pH ABG pH POC ABG pO2 ABG pO2 ABG HCO3 ABG O2 Saturation ABG Base Excess ABG Hemoglobin VBG pH Oxyhemoglobin Sodium 151 H Potassium 3.2 L Chloride 119.4 H Carbon Dioxide 17 L BUN 35 H Creatinine Glucose 139 H POC Glucose 153 H Lactic Acid Calcium 7.1 L Phosphorus Magnesium Iron TIBC Direct Bilirubin AST ALT Alkaline Phosphatase Total Creatine Kinase CK-MB (CK-2) C-Reactive Protein Total Protein Albumin Vitamin B12 Salicylates Acetaminophen Miscellaneous Test Crossmatch 03/31/19 03/31/19 03/31/19 05:05 05:35 06:23 WBC RBC Hgb Hct MCV MCH MCHC RDW Plt Count [place] % (Auto) Lymph # Seg Neuts % (Manual) Lymphocytes % (Manual) Nucleated RBC % Seg Neutrophils # Man Lymphocytes # (Manual) Monocytes # (Manual) PT INR APTT D-Dimer POC ABG pH ABG pH POC ABG pO2 ABG pO2 ABG HCO3 ABG O2 Saturation ABG Base Excess ABG Hemoglobin VBG pH Oxyhemoglobin Sodium Potassium Chloride Carbon Dioxide BUN Creatinine Glucose POC Glucose 176 H 133 H Lactic Acid 3.20 H* Calcium Phosphorus Magnesium Iron TIBC Direct Bilirubin AST ALT Alkaline Phosphatase Total Creatine Kinase CK-MB (CK-2) C-Reactive Protein Total Protein Albumin Vitamin B12 Salicylates Acetaminophen Miscellaneous Test Crossmatch 03/31/19 03/31/19 03/31/19 07:50 07:51 08:20 WBC RBC Hgb Hct MCV MCH MCHC RDW Plt Count [place] % (Auto) Lymph # Seg Neuts % (Manual) Lymphocytes % (Manual) Nucleated RBC % Seg Neutrophils # Man Lymphocytes # (Manual) Monocytes # (Manual) PT INR APTT D-Dimer POC ABG pH ABG pH POC ABG pO2 ABG pO2 ABG HCO3 ABG O2 Saturation ABG Base Excess ABG Hemoglobin VBG pH Oxyhemoglobin Sodium Potassium Chloride Carbon Dioxide BUN Creatinine Glucose POC Glucose 135 H Lactic Acid 3.30 H* Calcium Phosphorus Magnesium Iron 26 L TIBC 193 L Direct Bilirubin AST ALT Alkaline Phosphatase Total Creatine Kinase CK-MB (CK-2) C-Reactive Protein Total Protein Albumin Vitamin B12 Salicylates Acetaminophen Miscellaneous Test Crossmatch 03/31/19 03/31/19 03/31/19 08:20 08:20 09:06 WBC RBC Hgb Hct MCV MCH MCHC RDW Plt Count [place] % (Auto) Lymph # Seg Neuts % (Manual) Lymphocytes % (Manual) Nucleated RBC % Seg Neutrophils # Man Lymphocytes # (Manual) Monocytes # (Manual) PT INR APTT D-Dimer POC ABG pH ABG pH POC ABG pO2 ABG pO2 ABG HCO3 ABG O2 Saturation ABG Base Excess ABG Hemoglobin VBG pH Oxyhemoglobin Sodium 153 H Potassium 3.0 L Chloride 118.9 H Carbon Dioxide 18 L BUN 37 H Creatinine Glucose 132 H POC Glucose 145 H Lactic Acid Calcium 7.1 L Phosphorus Magnesium Iron TIBC Direct Bilirubin AST ALT Alkaline Phosphatase Total Creatine Kinase CK-MB (CK-2) C-Reactive Protein Total Protein Albumin Vitamin B12 > 2000 H Salicylates Acetaminophen Miscellaneous Test Crossmatch 03/31/19 03/31/19 03/31/19 10:47 11:49 13:04 WBC RBC Hgb Hct MCV MCH MCHC RDW Plt Count [place] % (Auto) Lymph # Seg Neuts % (Manual) Lymphocytes % (Manual) Nucleated RBC % Seg Neutrophils # Man Lymphocytes # (Manual) Monocytes # (Manual) PT INR APTT D-Dimer POC ABG pH ABG pH POC ABG pO2 ABG pO2 ABG HCO3 ABG O2 Saturation ABG Base Excess ABG Hemoglobin VBG pH Oxyhemoglobin Sodium Potassium Chloride Carbon Dioxide BUN Creatinine Glucose POC Glucose 153 H 174 H 214 H Lactic Acid Calcium Phosphorus Magnesium Iron TIBC Direct Bilirubin AST ALT Alkaline Phosphatase Total Creatine Kinase CK-MB (CK-2) C-Reactive Protein Total Protein Albumin Vitamin B12 Salicylates Acetaminophen Miscellaneous Test Crossmatch 03/31/19 03/31/19 03/31/19 13:42 15:08 16:08 WBC RBC Hgb Hct MCV MCH MCHC RDW Plt Count [place] % (Auto) Lymph # Seg Neuts % (Manual) Lymphocytes % (Manual) Nucleated RBC % Seg Neutrophils # Man Lymphocytes # (Manual) Monocytes # (Manual) PT INR APTT D-Dimer POC ABG pH ABG pH POC ABG pO2 ABG pO2 ABG HCO3 ABG O2 Saturation ABG Base Excess ABG Hemoglobin VBG pH Oxyhemoglobin Sodium Potassium Chloride Carbon Dioxide BUN Creatinine Glucose POC Glucose 186 H 136 H 150 H Lactic Acid Calcium Phosphorus Magnesium Iron TIBC Direct Bilirubin AST ALT Alkaline Phosphatase Total Creatine Kinase CK-MB (CK-2) C-Reactive Protein Total Protein Albumin Vitamin B12 Salicylates Acetaminophen Miscellaneous Test Crossmatch 03/31/19 03/31/19 03/31/19 17:11 17:30 17:30 WBC RBC Hgb 7.7 L Hct 23.0 L MCV MCH MCHC RDW Plt Count [place] % (Auto) Lymph # Seg Neuts % (Manual) Lymphocytes % (Manual) Nucleated RBC % Seg Neutrophils # Man Lymphocytes # (Manual) Monocytes # (Manual) PT INR APTT D-Dimer POC ABG pH ABG pH POC ABG pO2 ABG pO2 ABG HCO3 ABG O2 Saturation ABG Base Excess ABG Hemoglobin VBG pH Oxyhemoglobin Sodium 153 H Potassium 3.5 L Chloride 119.3 H Carbon Dioxide 20 L BUN 34 H Creatinine Glucose 162 H POC Glucose 140 H Lactic Acid Calcium 7.6 L Phosphorus Magnesium Iron TIBC Direct Bilirubin AST ALT Alkaline Phosphatase Total Creatine Kinase CK-MB (CK-2) C-Reactive Protein Total Protein Albumin Vitamin B12 Salicylates Acetaminophen Miscellaneous Test Crossmatch 03/31/19 03/31/19 03/31/19 17:59 18:58 20:28 WBC RBC Hgb Hct MCV MCH MCHC RDW Plt Count [place] % (Auto) Lymph # Seg Neuts % (Manual) Lymphocytes % (Manual) Nucleated RBC % Seg Neutrophils # Man Lymphocytes # (Manual) Monocytes # (Manual) PT INR APTT D-Dimer POC ABG pH ABG pH POC ABG pO2 ABG pO2 ABG HCO3 ABG O2 Saturation ABG Base Excess ABG Hemoglobin VBG pH Oxyhemoglobin Sodium Potassium Chloride Carbon Dioxide BUN Creatinine Glucose POC Glucose 156 H 152 H 138 H Lactic Acid Calcium Phosphorus Magnesium Iron TIBC Direct Bilirubin AST ALT Alkaline Phosphatase Total Creatine Kinase CK-MB (CK-2) C-Reactive Protein Total Protein Albumin Vitamin B12 Salicylates Acetaminophen Miscellaneous Test Crossmatch 03/31/19 03/31/19 03/31/19 21:09 22:15 23:10 WBC RBC Hgb Hct MCV MCH MCHC RDW Plt Count [place] % (Auto) Lymph # Seg Neuts % (Manual) Lymphocytes % (Manual) Nucleated RBC % Seg Neutrophils # Man Lymphocytes # (Manual) Monocytes # (Manual) PT INR APTT D-Dimer POC ABG pH ABG pH POC ABG pO2 ABG pO2 ABG HCO3 ABG O2 Saturation ABG Base Excess ABG Hemoglobin VBG pH Oxyhemoglobin Sodium Potassium Chloride Carbon Dioxide BUN Creatinine Glucose POC Glucose 136 H 137 H 148 H Lactic Acid Calcium Phosphorus Magnesium Iron TIBC Direct Bilirubin AST ALT Alkaline Phosphatase Total Creatine Kinase CK-MB (CK-2) C-Reactive Protein Total Protein Albumin Vitamin B12 Salicylates Acetaminophen Miscellaneous Test Crossmatch 04/01/19 04/01/19 04/01/19 00:05 01:17 02:11 WBC RBC Hgb Hct MCV MCH MCHC RDW Plt Count [place] % (Auto) Lymph # Seg Neuts % (Manual) Lymphocytes % (Manual) Nucleated RBC % Seg Neutrophils # Man Lymphocytes # (Manual) Monocytes # (Manual) PT INR APTT D-Dimer POC ABG pH ABG pH POC ABG pO2 ABG pO2 ABG HCO3 ABG O2 Saturation ABG Base Excess ABG Hemoglobin VBG pH Oxyhemoglobin Sodium Potassium Chloride Carbon Dioxide BUN Creatinine Glucose POC Glucose 143 H 151 H 155 H Lactic Acid Calcium Phosphorus Magnesium Iron TIBC Direct Bilirubin AST ALT Alkaline Phosphatase Total Creatine Kinase CK-MB (CK-2) C-Reactive Protein Total Protein Albumin Vitamin B12 Salicylates Acetaminophen Miscellaneous Test Crossmatch 04/01/19 04/01/19 04/01/19 03:12 04:03 04:16 WBC RBC Hgb Hct MCV MCH MCHC RDW Plt Count [place] % (Auto) Lymph # Seg Neuts % (Manual) Lymphocytes % (Manual) Nucleated RBC % Seg Neutrophils # Man Lymphocytes # (Manual) Monocytes # (Manual) PT INR APTT D-Dimer POC ABG pH ABG pH POC ABG pO2 ABG pO2 ABG HCO3 ABG O2 Saturation ABG Base Excess ABG Hemoglobin VBG pH Oxyhemoglobin Sodium Potassium Chloride Carbon Dioxide BUN Creatinine Glucose POC Glucose 140 H 143 H 142 H Lactic Acid Calcium Phosphorus Magnesium Iron TIBC Direct Bilirubin AST ALT Alkaline Phosphatase Total Creatine Kinase CK-MB (CK-2) C-Reactive Protein Total Protein Albumin Vitamin B12 Salicylates Acetaminophen Miscellaneous Test Crossmatch 04/01/19 04/01/1919 05:01 05:01 05:08 WBC RBC 2.05 L Hgb 6.8 L Hct 20.5 L MCV 100 H MCH 33 H MCHC RDW 17.7 H Plt Count 53 L [place] % (Auto) Lymph # Seg Neuts % (Manual) 71.0 H Lymphocytes % (Manual) Nucleated RBC % Seg Neutrophils # Man Lymphocytes # (Manual) Monocytes # (Manual) PT INR APTT D-Dimer POC ABG pH ABG pH POC ABG pO2 ABG pO2 ABG HCO3 ABG O2 Saturation ABG Base Excess ABG Hemoglobin VBG pH Oxyhemoglobin Sodium Potassium Chloride Carbon Dioxide BUN Creatinine Glucose POC Glucose 119 H Lactic Acid Calcium Phosphorus Magnesium Iron TIBC Direct Bilirubin 0.3 H AST 4601 H ALT 1542 H Alkaline Phosphatase 185 H Total Creatine Kinase CK-MB (CK-2) C-Reactive Protein Total Protein 3.8 L Albumin 1.6 L Vitamin B12 Salicylates Acetaminophen Miscellaneous Test Crossmatch 04/01/19 04/01/19 04/01/19 05:23 06:37 08:15 WBC RBC Hgb Hct MCV MCH MCHC RDW Plt Count [place] % (Auto) Lymph # Seg Neuts % (Manual) Lymphocytes % (Manual) Nucleated RBC % Seg Neutrophils # Man Lymphocytes # (Manual) Monocytes # (Manual) PT INR APTT D-Dimer POC ABG pH ABG pH POC ABG pO2 ABG pO2 ABG HCO3 ABG O2 Saturation ABG Base Excess ABG Hemoglobin VBG pH Oxyhemoglobin Sodium Potassium Chloride Carbon Dioxide BUN Creatinine Glucose POC Glucose 115 H 124 H 138 H Lactic Acid Calcium Phosphorus Magnesium Iron TIBC Direct Bilirubin AST ALT Alkaline Phosphatase Total Creatine Kinase CK-MB (CK-2) C-Reactive Protein Total Protein Albumin Vitamin B12 Salicylates Acetaminophen Miscellaneous Test Crossmatch 04/01/19 04/01/19 04/01/19 09:50 10:10 10:31 WBC RBC Hgb 6.5 L Hct 19.2 L* MCV MCH MCHC RDW Plt Count [place] % (Auto) Lymph # Seg Neuts % (Manual) Lymphocytes % (Manual) Nucleated RBC % Seg Neutrophils # Man Lymphocytes # (Manual) Monocytes # (Manual) PT INR APTT D-Dimer POC ABG pH ABG pH POC ABG pO2 ABG pO2 ABG HCO3 ABG O2 Saturation ABG Base Excess ABG Hemoglobin VBG pH Oxyhemoglobin Sodium 149 H Potassium 3.5 L Chloride 119.9 H Carbon Dioxide 21 L BUN 33 H Creatinine 0.5 L Glucose 142 H POC Glucose 185 H Lactic Acid Calcium 7.3 L Phosphorus Magnesium Iron TIBC Direct Bilirubin AST 3686 H ALT 1440 H Alkaline Phosphatase 185 H Total Creatine Kinase CK-MB (CK-2) C-Reactive Protein Total Protein 3.7 L Albumin 1.8 L Vitamin B12 Salicylates Acetaminophen Miscellaneous Test Crossmatch 04/01/19 04/01/19 04/01/19 11:35 13:05 14:35 WBC RBC Hgb Hct MCV MCH MCHC RDW Plt Count [place] % (Auto) Lymph # Seg Neuts % (Manual) Lymphocytes % (Manual) Nucleated RBC % Seg Neutrophils # Man Lymphocytes # (Manual) Monocytes # (Manual) PT INR APTT D-Dimer POC ABG pH ABG pH POC ABG pO2 ABG pO2 ABG HCO3 ABG O2 Saturation ABG Base Excess ABG Hemoglobin VBG pH Oxyhemoglobin Sodium Potassium Chloride Carbon Dioxide BUN Creatinine Glucose POC Glucose 201 H 169 H 134 H Lactic Acid Calcium Phosphorus Magnesium Iron TIBC Direct Bilirubin AST ALT Alkaline Phosphatase Total Creatine Kinase CK-MB (CK-2) C-Reactive Protein Total Protein Albumin Vitamin B12 Salicylates Acetaminophen Miscellaneous Test Crossmatch 04/01/19 04/01/19 04/01/19 17:13 17:14 18:30 WBC RBC Hgb Hct MCV MCH MCHC RDW Plt Count [place] % (Auto) Lymph # Seg Neuts % (Manual) Lymphocytes % (Manual) Nucleated RBC % Seg Neutrophils # Man Lymphocytes # (Manual) Monocytes # (Manual) PT INR APTT D-Dimer 5203.68 H POC ABG pH ABG pH POC ABG pO2 ABG pO2 ABG HCO3 ABG O2 Saturation ABG Base Excess ABG Hemoglobin VBG pH Oxyhemoglobin Sodium Potassium Chloride Carbon Dioxide BUN Creatinine Glucose POC Glucose 69 L 128 H Lactic Acid Calcium Phosphorus Magnesium Iron TIBC Direct Bilirubin AST ALT Alkaline Phosphatase Total Creatine Kinase CK-MB (CK-2) C-Reactive Protein Total Protein Albumin Vitamin B12 Salicylates Acetaminophen Miscellaneous Test Crossmatch 04/01/19 04/01/19 04/02/19 22:50 Unknown 03:40 WBC RBC Hgb Hct MCV MCH MCHC RDW Plt Count [place] % (Auto) Lymph # Seg Neuts % (Manual) Lymphocytes % (Manual) Nucleated RBC % Seg Neutrophils # Man Lymphocytes # (Manual) Monocytes # (Manual) PT INR APTT D-Dimer POC ABG pH ABG pH POC ABG pO2 ABG pO2 78.3 L 142.8 H ABG HCO3 15.5 L ABG O2 Saturation ABG Base Excess -3.5 L -8.2 L ABG Hemoglobin 6.8 L 8.2 L VBG pH Oxyhemoglobin 94.3 L Sodium Potassium Chloride Carbon Dioxide BUN Creatinine Glucose POC Glucose 342 H Lactic Acid Calcium Phosphorus Magnesium Iron TIBC Direct Bilirubin AST ALT Alkaline Phosphatase Total Creatine Kinase CK-MB (CK-2) C-Reactive Protein Total Protein Albumin Vitamin B12 Salicylates Acetaminophen Miscellaneous Test Crossmatch 04/02/19 04/02/19 04/02/19 03:49 06:50 07:48 WBC RBC 2.65 L Hgb 8.6 L Hct 25.1 L MCV MCH MCHC RDW 17.6 H Plt Count 48 L [place] % (Auto) Lymph # Seg Neuts % (Manual) Lymphocytes % (Manual) Nucleated RBC % Seg Neutrophils # Man Lymphocytes # (Manual) Monocytes # (Manual) PT INR APTT D-Dimer POC ABG pH ABG pH POC ABG pO2 ABG pO2 ABG HCO3 ABG O2 Saturation ABG Base Excess ABG Hemoglobin VBG pH Oxyhemoglobin Sodium Potassium Chloride Carbon Dioxide BUN Creatinine Glucose POC Glucose 247 H 200 H Lactic Acid Calcium Phosphorus Magnesium Iron TIBC Direct Bilirubin AST ALT Alkaline Phosphatase Total Creatine Kinase CK-MB (CK-2) C-Reactive Protein Total Protein Albumin Vitamin B12 Salicylates Acetaminophen Miscellaneous Test Crossmatch 04/02/19 04/02/19 04/02/19 07:48 11:18 14:07 WBC RBC Hgb Hct MCV MCH MCHC RDW Plt Count [place] % (Auto) Lymph # Seg Neuts % (Manual) Lymphocytes % (Manual) Nucleated RBC % Seg Neutrophils # Man Lymphocytes # (Manual) Monocytes # (Manual) PT INR APTT D-Dimer POC ABG pH ABG pH POC ABG pO2 ABG pO2 ABG HCO3 ABG O2 Saturation ABG Base Excess ABG Hemoglobin VBG pH Oxyhemoglobin Sodium Potassium 3.5 L Chloride 115.7 H Carbon Dioxide 19 L BUN 29 H Creatinine 0.5 L Glucose 159 H POC Glucose 154 H 149 H Lactic Acid Calcium 7.5 L Phosphorus Magnesium Iron TIBC Direct Bilirubin AST 1418 H ALT 1134 H Alkaline Phosphatase 242 H Total Creatine Kinase CK-MB (CK-2) C-Reactive Protein Total Protein 4.2 L Albumin 2.1 L Vitamin B12 Salicylates Acetaminophen Miscellaneous Test Crossmatch 04/02/19 04/02/19 04/02/19 18:09 19:46 23:05 WBC RBC Hgb Hct MCV MCH MCHC RDW Plt Count [place] % (Auto) Lymph # Seg Neuts % (Manual) Lymphocytes % (Manual) Nucleated RBC % Seg Neutrophils # Man Lymphocytes # (Manual) Monocytes # (Manual) PT INR APTT D-Dimer POC ABG pH ABG pH POC ABG pO2 ABG pO2 ABG HCO3 ABG O2 Saturation ABG Base Excess ABG Hemoglobin VBG pH Oxyhemoglobin Sodium Potassium Chloride Carbon Dioxide BUN Creatinine Glucose POC Glucose 188 H 209 H 247 H Lactic Acid Calcium Phosphorus Magnesium Iron TIBC Direct Bilirubin AST ALT Alkaline Phosphatase Total Creatine Kinase CK-MB (CK-2) C-Reactive Protein Total Protein Albumin Vitamin B12 Salicylates Acetaminophen Miscellaneous Test Crossmatch 04/03/19 04/03/19 04/03/19 02:58 03:40 03:40 WBC RBC 2.87 L Hgb 9.3 L Hct 27.0 L MCV MCH MCHC RDW 17.2 H Plt Count 65 L [place] % (Auto) 9.8 H Lymph # 1.1 L Seg Neuts % (Manual) Lymphocytes % (Manual) Nucleated RBC % Seg Neutrophils # Man Lymphocytes # (Manual) Monocytes # (Manual) PT INR APTT D-Dimer POC ABG pH ABG pH POC ABG pO2 ABG pO2 ABG HCO3 ABG O2 Saturation ABG Base Excess ABG Hemoglobin VBG pH Oxyhemoglobin Sodium 147 H Potassium 3.5 L Chloride 116.7 H Carbon Dioxide 18 L BUN Creatinine 0.4 L Glucose 150 H POC Glucose 166 H Lactic Acid Calcium 8.1 L Phosphorus 2.20 L Magnesium Iron TIBC Direct Bilirubin AST 594 H ALT 861 H Alkaline Phosphatase 299 H Total Creatine Kinase CK-MB (CK-2) C-Reactive Protein Total Protein 4.4 L Albumin 2.1 L Vitamin B12 Salicylates Acetaminophen Miscellaneous Test Crossmatch 04/03/19 04/03/19 04/03/19 05:35 07:02 08:23 WBC RBC Hgb Hct MCV MCH MCHC RDW Plt Count [place] % (Auto) Lymph # Seg Neuts % (Manual) Lymphocytes % (Manual) Nucleated RBC % Seg Neutrophils # Man Lymphocytes # (Manual) Monocytes # (Manual) PT INR APTT D-Dimer POC ABG pH ABG pH POC ABG pO2 ABG pO2 97.7 H ABG HCO3 19.3 L ABG O2 Saturation ABG Base Excess -5.0 L ABG Hemoglobin 8.0 L VBG pH Oxyhemoglobin Sodium Potassium Chloride Carbon Dioxide BUN Creatinine Glucose POC Glucose 135 H 132 H Lactic Acid Calcium Phosphorus Magnesium Iron TIBC Direct Bilirubin AST ALT Alkaline Phosphatase Total Creatine Kinase CK-MB (CK-2) C-Reactive Protein Total Protein Albumin Vitamin B12 Salicylates Acetaminophen Miscellaneous Test Crossmatch 04/03/19 04/03/19 04/03/19 11:58 15:11 17:53 WBC RBC Hgb Hct MCV MCH MCHC RDW Plt Count [place] % (Auto) Lymph # Seg Neuts % (Manual) Lymphocytes % (Manual) Nucleated RBC % Seg Neutrophils # Man Lymphocytes # (Manual) Monocytes # (Manual) PT INR APTT D-Dimer POC ABG pH ABG pH POC ABG pO2 ABG pO2 ABG HCO3 ABG O2 Saturation ABG Base Excess ABG Hemoglobin VBG pH Oxyhemoglobin Sodium Potassium Chloride Carbon Dioxide BUN Creatinine Glucose POC Glucose 179 H 213 H 223 H Lactic Acid Calcium Phosphorus Magnesium Iron TIBC Direct Bilirubin AST ALT Alkaline Phosphatase Total Creatine Kinase CK-MB (CK-2) C-Reactive Protein Total Protein Albumin Vitamin B12 Salicylates Acetaminophen Miscellaneous Test Crossmatch 04/03/19 04/04/19 04/04/19 23:06 02:36 06:41 WBC RBC Hgb Hct MCV MCH MCHC RDW Plt Count [place] % (Auto) Lymph # Seg Neuts % (Manual) Lymphocytes % (Manual) Nucleated RBC % Seg Neutrophils # Man Lymphocytes # (Manual) Monocytes # (Manual) PT INR APTT D-Dimer POC ABG pH ABG pH POC ABG pO2 ABG pO2 ABG HCO3 ABG O2 Saturation ABG Base Excess ABG Hemoglobin VBG pH Oxyhemoglobin Sodium Potassium Chloride Carbon Dioxide BUN Creatinine Glucose POC Glucose 189 H 157 H 131 H Lactic Acid Calcium Phosphorus Magnesium Iron TIBC Direct Bilirubin AST ALT Alkaline Phosphatase Total Creatine Kinase CK-MB (CK-2) C-Reactive Protein Total Protein Albumin Vitamin B12 Salicylates Acetaminophen Miscellaneous Test Crossmatch 04/04/19 04/04/19 04/04/19 11:42 15:45 18:21 WBC RBC Hgb Hct MCV MCH MCHC RDW Plt Count [place] % (Auto) Lymph # Seg Neuts % (Manual) Lymphocytes % (Manual) Nucleated RBC % Seg Neutrophils # Man Lymphocytes # (Manual) Monocytes # (Manual) PT INR APTT D-Dimer POC ABG pH ABG pH POC ABG pO2 ABG pO2 ABG HCO3 ABG O2 Saturation ABG Base Excess ABG Hemoglobin VBG pH Oxyhemoglobin Sodium Potassium Chloride Carbon Dioxide BUN Creatinine Glucose POC Glucose 233 H 236 H 255 H Lactic Acid Calcium Phosphorus Magnesium Iron TIBC Direct Bilirubin AST ALT Alkaline Phosphatase Total Creatine Kinase CK-MB (CK-2) C-Reactive Protein Total Protein Albumin Vitamin B12 Salicylates Acetaminophen Miscellaneous Test Crossmatch 04/04/19 04/05/19 04/05/19 21:21 03:06 06:05 WBC RBC 2.68 L Hgb 8.5 L Hct 26.3 L MCV 98 H MCH MCHC RDW 17.4 H Plt Count [place] % (Auto) Lymph # Seg Neuts % (Manual) Lymphocytes % (Manual) Nucleated RBC % Seg Neutrophils # Man Lymphocytes # (Manual) Monocytes # (Manual) PT INR APTT D-Dimer POC ABG pH ABG pH POC ABG pO2 ABG pO2 ABG HCO3 ABG O2 Saturation ABG Base Excess ABG Hemoglobin VBG pH Oxyhemoglobin Sodium Potassium Chloride Carbon Dioxide BUN Creatinine Glucose POC Glucose 132 H 161 H Lactic Acid Calcium Phosphorus Magnesium Iron TIBC Direct Bilirubin AST ALT Alkaline Phosphatase Total Creatine Kinase CK-MB (CK-2) C-Reactive Protein Total Protein Albumin Vitamin B12 Salicylates Acetaminophen Miscellaneous Test Crossmatch 04/05/19 04/05/19 04/05/19 06:05 06:49 10:23 WBC RBC Hgb Hct MCV MCH MCHC RDW Plt Count [place] % (Auto) Lymph # Seg Neuts % (Manual) Lymphocytes % (Manual) Nucleated RBC % Seg Neutrophils # Man Lymphocytes # (Manual) Monocytes # (Manual) PT INR APTT D-Dimer POC ABG pH ABG pH POC ABG pO2 ABG pO2 ABG HCO3 ABG O2 Saturation ABG Base Excess ABG Hemoglobin VBG pH Oxyhemoglobin Sodium Potassium Chloride 112.5 H Carbon Dioxide BUN Creatinine 0.2 L Glucose 237 H POC Glucose 283 H 296 H Lactic Acid Calcium 7.9 L Phosphorus Magnesium Iron TIBC Direct Bilirubin AST ALT Alkaline Phosphatase Total Creatine Kinase CK-MB (CK-2) C-Reactive Protein Total Protein Albumin Vitamin B12 Salicylates Acetaminophen Miscellaneous Test Crossmatch 04/05/19 04/05/19 04/05/19 14:46 18:19 20:35 WBC RBC Hgb Hct MCV MCH MCHC RDW Plt Count [place] % (Auto) Lymph # Seg Neuts % (Manual) Lymphocytes % (Manual) Nucleated RBC % Seg Neutrophils # Man Lymphocytes # (Manual) Monocytes # (Manual) PT INR APTT D-Dimer POC ABG pH ABG pH POC ABG pO2 ABG pO2 ABG HCO3 ABG O2 Saturation ABG Base Excess ABG Hemoglobin VBG pH Oxyhemoglobin Sodium Potassium Chloride Carbon Dioxide BUN Creatinine Glucose POC Glucose 225 H 259 H 236 H Lactic Acid Calcium Phosphorus Magnesium Iron TIBC Direct Bilirubin AST ALT Alkaline Phosphatase Total Creatine Kinase CK-MB (CK-2) C-Reactive Protein Total Protein Albumin Vitamin B12 Salicylates Acetaminophen Miscellaneous Test Crossmatch 04/05/19 04/06/19 04/06/19 23:11 00:06 03:14 WBC RBC Hgb Hct MCV MCH MCHC RDW Plt Count [place] % (Auto) Lymph # Seg Neuts % (Manual) Lymphocytes % (Manual) Nucleated RBC % Seg Neutrophils # Man Lymphocytes # (Manual) Monocytes # (Manual) PT INR APTT D-Dimer 4526.86 H POC ABG pH ABG pH POC ABG pO2 ABG pO2 ABG HCO3 ABG O2 Saturation ABG Base Excess ABG Hemoglobin VBG pH Oxyhemoglobin Sodium Potassium Chloride Carbon Dioxide BUN Creatinine Glucose POC Glucose 205 H 228 H Lactic Acid Calcium Phosphorus Magnesium Iron TIBC Direct Bilirubin AST ALT Alkaline Phosphatase Total Creatine Kinase CK-MB (CK-2) C-Reactive Protein Total Protein Albumin Vitamin B12 Salicylates Acetaminophen Miscellaneous Test Crossmatch 04/06/19 04/06/19 04/06/19 05:20 05:20 07:57 WBC 15.1 H RBC 2.90 L Hgb 9.1 L Hct 28.0 L MCV MCH MCHC RDW 17.3 H Plt Count [place] % (Auto) Lymph # Seg Neuts % (Manual) Lymphocytes % (Manual) Nucleated RBC % Seg Neutrophils # Man Lymphocytes # (Manual) Monocytes # (Manual) PT INR APTT D-Dimer POC ABG pH ABG pH POC ABG pO2 ABG pO2 ABG HCO3 ABG O2 Saturation ABG Base Excess ABG Hemoglobin VBG pH Oxyhemoglobin Sodium Potassium Chloride Carbon Dioxide BUN Creatinine 0.2 L Glucose 161 H POC Glucose 191 H Lactic Acid Calcium 8.0 L Phosphorus Magnesium Iron TIBC Direct Bilirubin AST ALT Alkaline Phosphatase Total Creatine Kinase CK-MB (CK-2) C-Reactive Protein Total Protein Albumin Vitamin B12 Salicylates Acetaminophen Miscellaneous Test Crossmatch 04/06/19 12:09 WBC RBC Hgb Hct MCV MCH MCHC RDW Plt Count [place] % (Auto) Lymph # Seg Neuts % (Manual) Lymphocytes % (Manual) Nucleated RBC % Seg Neutrophils # Man Lymphocytes # (Manual) Monocytes # (Manual) PT INR APTT D-Dimer POC ABG pH ABG pH POC ABG pO2 ABG pO2 ABG HCO3 ABG O2 Saturation ABG Base Excess ABG Hemoglobin VBG pH Oxyhemoglobin Sodium Potassium Chloride Carbon Dioxide BUN Creatinine Glucose POC Glucose 143 H Lactic Acid Calcium Phosphorus Magnesium Iron TIBC Direct Bilirubin AST ALT Alkaline Phosphatase Total Creatine Kinase CK-MB (CK-2) C-Reactive Protein Total Protein Albumin Vitamin B12 Salicylates Acetaminophen Miscellaneous Test Crossmatch
--- NOTE | 2019-04-06 20:01 | Progress Note ---
Assessment and Plan Cultures: 03/29 BCx: pend 03/29 sputum Cx: C albicans A/P: 28 yo F PMHx T1DM admitted after receiving intubation and compressions due to non-responsiveness likely secondary to DKA 1. Sepsis - liNow with potential liver abscess.Leukocytosis, tachycardia. 2. Aspiration pneumonia - Procal greatly elevated. Continue antibiotics. Can treat for 7 days. Jenn in sputum culture not a pathogen of the respiratory tract. 3. Liver abscess - For dedicated CT of the liver per gen surg. Whatever the modality of drainage be it IR or surgery, please send for cultures when drained. Her MRSA swab is negative, as such I do not see a need for vancomycin at this time and would continue to treat with Cefepime as her problem is most likely source control. 4. DKA - numerous metabolic derangements, per primary/ICU team 5. T1DM 6. Head lice - s/p treatment. Recs: - continue cefepime renally dosed at 2g q8h - continue metronidazole 500mg q8h - Continue antibiotics indefintiely pending drainage of liver abscesses - PLease send liver abscess for aerobic and anaerobic cultures. Thank you for the consult, we will continue to follow. Vlad Carson MD [facility] ([facility]) M: [phone] O: [phone] F: [phone] Subjective Date of service: 04/06/19 Principal diagnosis: Ac Hypoxemic Resp Failure; DKA; Severe sepsis with shock; ANGELICA Interval history: No acute change. Noted findings of CT with possible liver abscess. Objective - Exam Narrative Exam: Physical Exam: Constitutional: Intubated, sedated Head, Ears, Nose: Normocephalic, atraumatic. External ears, nose normal Eyes: Conjunctivae/corneas clear. No icterus. No ptosis. Neck: Supple, no meningeal signs. Intubated Oral: dentition fair, no thrush Cardiovascular: S1, S2 normal. Respiratory: Good air entry, clear to auscultation bilaterally GI: Soft, non-tender; bowel sounds normal. No peritoneal signs. Musculoskeletal: No pedal edema, no cyanosis. Skin: No rash or abscess Hem/Lymphatic: No palpable cervical or supraclavicular nodes. No lymphangitis Neurological: Intubated, sedated - Constitutional Vitals: Vital Signs Temp Pulse Resp BP Pulse Ox 99.6 F 116 H 16 95/48 97 04/06/19 19:56 04/06/19 19:00 04/06/19 19:00 04/06/19 19:00 04/06/19 19:00 Temperature -Last 24 Hours Temperature 99.6 F Temperature 100.1 F Temperature 99.6 F Temperature 100.0 F Temperature 98.8 F Temperature 99.7 F Temperature 98.9 F Temperature 98.9 F - Labs CBC & Chem 7: 04/06/19 05:20 04/06/19 05:20 Labs: Abnormal lab results 04/05/19 04/05/19 04/05/19 Range/Units 18:19 20:35 23:11 WBC (4.5-11.0) K/mm3 RBC (3.65-5.03) M/mm3 Hgb (10.1-14.3) gm/dl Hct (30.3-42.9) % RDW (13.2-15.2) % D-Dimer (0-234) ng/mlDDU Creatinine (0.7-1.2) mg/dL Glucose (65-100) mg/dL POC Glucose 259 H 236 H 205 H (70-105) Calcium (8.4-10.2) mg/dL 04/06/19 04/06/19 04/06/19 Range/Units 00:06 03:14 05:20 WBC 15.1 H (4.5-11.0) K/mm3 RBC 2.90 L (3.65-5.03) M/mm3 Hgb 9.1 L (10.1-14.3) gm/dl Hct 28.0 L (30.3-42.9) % RDW 17.3 H (13.2-15.2) % D-Dimer 4526.86 H (0-234) ng/mlDDU Creatinine (0.7-1.2) mg/dL Glucose (65-100) mg/dL POC Glucose 228 H (70-105) Calcium (8.4-10.2) mg/dL 04/06/19 04/06/19 04/06/19 Range/Units 05:20 07:57 12:09 WBC (4.5-11.0) K/mm3 RBC (3.65-5.03) M/mm3 Hgb (10.1-14.3) gm/dl Hct (30.3-42.9) % RDW (13.2-15.2) % D-Dimer (0-234) ng/mlDDU Creatinine 0.2 L (0.7-1.2) mg/dL Glucose 161 H (65-100) mg/dL POC Glucose 191 H 143 H (70-105) Calcium 8.0 L (8.4-10.2) mg/dL
[2019-04-06] MEDS: ENOXAPARIN SUB-Q SCH (22:08)
[2019-04-06] MEDS: LANTUS SUB-Q SCH (22:08)
[2019-04-07] MEDS: HumuLIN R SUB-Q SCH ×6 (02:59→22:58)
[2019-04-07] MEDS: SUBLIMAZE IV PRN ×2 (03:34→14:19)
[2019-04-07 05:37] LABS: Hematocrit 25.5 % (30.3-42.9); Hemoglobin 8.3 gm/dl (10.1-14.3); Mean Corpuscular HGB Conc 32 % (30-34); Mean Corpuscular Volume 96 fl (79-97); Platelet Count 286 K/mm3 (140-440); Red Blood Count 2.65 M/mm3 (3.65-5.03)
[2019-04-07 05:50] LABS: BUN/Creatinine Ratio 50; Blood Urea Nitrogen 10 mg/dL (7-17); Calcium 7.7 mg/dL (8.4-10.2); Hemolysis Index 9
--- NOTE | 2019-04-07 08:31 | Progress Note ---
Assessment and Plan Acute toxic metabolic encephalopathy. Diabetic ketoacidosis. Severe sepsis with shock. Possible aspiration pneumonia. History of polysubstance abuse. Leukocytosis. Elevated serum transaminases, possible shock liver. Hyponatremia related to her severe hyperglycemia. Anemia that is macrocytic. History of seizure disorder. Severe metabolic acidosis. Acute kidney injury, possibly on chronic - MRI consistent with diffuse anoxic injury - AMS may end up rate limiting factor to safe extubation - neurology evaluation ongoing - continue to follow mental status closely - continue and de-escalate antiinfective's per ID recommendations - continue daily SAT and SBT assessments as tolerated - continue enteral nutrition with glucerna , aspiration precautions, HOB >40 - continue bronchodilators with pulmonary hygiene per RT - VAP bundle addressed - continue to wean supplemental O2 to keep O2 sats > 90% - VTE prophylaxis- SCDs - Stress ulcer prophylaxis - continue accuchecks with glycemic control per SSI for target blood glucose 140-180 mg/dL - continue Keppra for seizures - continue mobility protocols / off loading for pressure ulcer prevention - Critical care bundles addressed - continue Seizure precautions - continue other care per attending / other consultants CONDITION: CRITICAL PROGNOSIS: GUARDED TO GRAVE CODE STATUS: DNAR The high probability of a clinically significant, sudden or life threatening deterioration of the [Neurology Respiratory, Cardiovascular] system(s) required my full and direct attention, intervention and personal management. The aggregate critical care time was [30] minutes. This time is in addition to time spent performing reported procedures but includes the following: [x] Data Review and interpretation [x] Patient assessment and monitoring of vital signs [x] Documentation [x] Medication orders and management Subjective Date of service: 04/07/19 Principal diagnosis: Ac Hypoxemic Resp Failure; DKA; Severe sepsis with shock; ANGELICA Interval history: Patient is seen today for: Acute Hypoxemic Resp Failure; Ac toxic metabolic encephalopathy; DKA; Severe sepsis with shock; Possible aspiration pneumonia; History of polysubstance abuse; History of seizure disorder; Acute kidney injury, possibly on chronic Seen and examined at bedside; 24hour events reviewed; nursing and respiratory care staff consulted; no adverse overnight events reported to me; resting peacefully in bed; AMS is persistent; remains off vasopressors but on MVS; no emesis or overt aspiration and no high grade fevers Vitals, labs,medications, chart reviewed. Objective Vital Signs - 12hr 04/06/19 04/06/1919 21:00 22:00 22:52 Temperature Pulse Rate 137 H 133 H 129 H Respiratory 23 21 21 Rate Blood Pressure 120/69 115/61 115/61 O2 Sat by Pulse 96 96 98 Oximetry 04/06/19 04/06/19 04/06/19 23:00 23:07 23:23 Temperature 99.4 F Pulse Rate 131 H 130 H Respiratory 22 23 Rate Blood Pressure 117/61 117/61 O2 Sat by Pulse 97 99 Oximetry 04/07/19 04/07/19 04/07/19 00:00 00:36 01:00 Temperature Pulse Rate 136 H 127 H 140 H Respiratory 24 25 H Rate Blood Pressure 118/69 118/69 126/77 O2 Sat by Pulse 96 97 96 Oximetry 04/07/19 04/07/19 04/07/19 02:00 03:00 03:28 Temperature 100 F H Pulse Rate 119 H 132 H Respiratory 18 23 Rate Blood Pressure 107/57 129/84 O2 Sat by Pulse 97 96 Oximetry 04/07/19 04/07/19 04/07/19 04:00 05:00 05:05 Temperature Pulse Rate 118 H 128 H 126 H Respiratory 14 23 Rate Blood Pressure 105/60 122/79 122/79 O2 Sat by Pulse 97 99 Oximetry 04/07/19 04/07/19 06:00 07:37 Temperature Pulse Rate 128 H 140 H Respiratory 18 20 Rate Blood Pressure 120/83 104/64 O2 Sat by Pulse 97 99 Oximetry Constitutional: no acute distress, other (young CF normocephalic and atraumatic on MVS) Eyes: non-icteric ENT: oropharynx moist, other (ETT 22-23 cm Jessi) Neck: supple, no lymphadenopathy, no JVD Effort: mildly labored Ascultation: Bilateral: rhonchi Percussion: Bilateral: not dull Cardiovascular: regular rate and rhythm, other (sinus tachycardia) Gastrointestinal: normoactive bowel sounds, soft, non-tender Integumentary: erythema (noted on upper extremity) Extremities: no cyanosis, pink and warm, pulses normal, no ischemia or petechiae, edema (trace to 1+) Neurologic: other (encephalaopthy, not obeying commands, spontanesous eye opening) Psychiatric: other (unable to assess) CBC and BMP: 04/07/19 04:30 04/07/19 04:30 ABG, PT/INR, D-dimer: ABG POC ABG pH 7.374 (7.35-7.45) 04/04/19 03:46 ABG pH 7.396 pH Units (7.350-7.450) 04/03/19 05:35 POC ABG pCO2 36.2 (35-45) 04/04/19 03:46 ABG pCO2 32.2 mm Hg 04/03/19 05:35 POC ABG pO2 96 (80-105) 04/04/19 03:46 ABG pO2 97.7 mm Hg (80.0-90.0) H 04/03/19 05:35 POC ABG HCO3 21.2 (22-26 mml/L) 04/04/19 03:46 POC ABG Total CO2 22 (23-27mmol/L) 04/04/19 03:46 POC ABG O2 Sat 97 04/04/19 03:46 ABG O2 Saturation 97.6 % (95.0-99.0) 04/03/19 05:35 PT/INR, D-dimer PT 13.9 Sec. (12.2-14.9) 04/01/19 17:14 INR 1.10 (0.87-1.13) 04/01/19 17:14 4526.86 ng/mlDDU (0-234) H 04/06/19 00:06 Abnormal lab findings: Abnormal Labs 03/29/19 03/29/19 03/29/19 19:11 19:20 19:20 WBC 26.7 H RBC 2.52 L Hgb 8.1 L Hct MCV 148 H MCH MCHC 22 L RDW 18.5 H Plt Count [place] % (Auto) Lymph # Seg Neuts % (Manual) 82.0 H Lymphocytes % (Manual) 7.0 L Nucleated RBC % Seg Neutrophils # Man 21.9 H Lymphocytes # (Manual) Monocytes # (Manual) 1.9 H PT 21.8 H INR 1.95 H APTT 74.5 H* D-Dimer POC ABG pH ABG pH POC ABG pO2 ABG pO2 ABG HCO3 ABG O2 Saturation ABG Base Excess ABG Hemoglobin VBG pH Oxyhemoglobin Sodium Potassium Chloride Carbon Dioxide BUN Creatinine Glucose POC Glucose > 500 H Lactic Acid Calcium Phosphorus Magnesium Iron TIBC Direct Bilirubin AST ALT Alkaline Phosphatase Total Creatine Kinase CK-MB (CK-2) C-Reactive Protein Total Protein Albumin Vitamin B12 Salicylates Acetaminophen Miscellaneous Test Crossmatch 03/29/19 03/29/19 03/29/19 19:20 19:47 20:59 WBC RBC Hgb Hct MCV MCH MCHC RDW Plt Count [place] % (Auto) Lymph # Seg Neuts % (Manual) Lymphocytes % (Manual) Nucleated RBC % Seg Neutrophils # Man Lymphocytes # (Manual) Monocytes # (Manual) PT INR APTT D-Dimer POC ABG pH 6.892 L ABG pH POC ABG pO2 236 H ABG pO2 ABG HCO3 ABG O2 Saturation ABG Base Excess ABG Hemoglobin VBG pH 6.800 L* Oxyhemoglobin Sodium 118 L* Potassium 9.0 H* Chloride 64.5 L Carbon Dioxide 7 L* BUN 53 H Creatinine 2.1 H Glucose 2196 H* POC Glucose Lactic Acid Calcium 12.4 H* Phosphorus Magnesium Iron TIBC Direct Bilirubin AST 3900 H ALT 1034 H Alkaline Phosphatase 316 H Total Creatine Kinase CK-MB (CK-2) C-Reactive Protein Total Protein 5.1 L Albumin 2.8 L Vitamin B12 Salicylates Acetaminophen Miscellaneous Test Crossmatch 03/29/19 03/29/19 03/29/19 22:45 22:45 22:45 WBC RBC Hgb Hct MCV MCH MCHC RDW Plt Count [place] % (Auto) Lymph # Seg Neuts % (Manual) Lymphocytes % (Manual) Nucleated RBC % Seg Neutrophils # Man Lymphocytes # (Manual) Monocytes # (Manual) PT INR APTT D-Dimer POC ABG pH ABG pH POC ABG pO2 ABG pO2 ABG HCO3 ABG O2 Saturation ABG Base Excess ABG Hemoglobin VBG pH Oxyhemoglobin Sodium 132 L D Potassium 7.0 H* Chloride 84.3 L Carbon Dioxide 3 L* BUN 48 H Creatinine 1.8 H Glucose 1779 H* POC Glucose Lactic Acid Calcium Phosphorus 21.70 H Magnesium 4.70 H Iron TIBC Direct Bilirubin AST ALT Alkaline Phosphatase Total Creatine Kinase 363 H CK-MB (CK-2) C-Reactive Protein Total Protein Albumin Vitamin B12 Salicylates Acetaminophen Miscellaneous Test Crossmatch 03/29/19 03/29/19 03/30/19 Unknown Unknown 00:11 WBC RBC Hgb Hct MCV MCH MCHC RDW Plt Count [place] % (Auto) Lymph # Seg Neuts % (Manual) Lymphocytes % (Manual) Nucleated RBC % Seg Neutrophils # Man Lymphocytes # (Manual) Monocytes # (Manual) PT INR APTT D-Dimer POC ABG pH ABG pH POC ABG pO2 ABG pO2 ABG HCO3 ABG O2 Saturation ABG Base Excess ABG Hemoglobin VBG pH Oxyhemoglobin Sodium 122 L Potassium 7.9 H* 6.4 H* Chloride 75.3 L 89.7 L Carbon Dioxide 3 L* 12 L D BUN 52 H 46 H Creatinine 2.0 H 1.7 H Glucose 2043 H* 1591 H* POC Glucose Lactic Acid Calcium 7.8 L Phosphorus 19.30 H Magnesium 3.90 H Iron TIBC Direct Bilirubin AST ALT Alkaline Phosphatase Total Creatine Kinase CK-MB (CK-2) C-Reactive Protein Total Protein Albumin Vitamin B12 Salicylates Acetaminophen Miscellaneous Test Crossmatch 03/30/19 03/30/19 03/30/19 00:11 02:14 02:14 WBC RBC Hgb Hct MCV MCH MCHC RDW Plt Count [place] % (Auto) Lymph # Seg Neuts % (Manual) Lymphocytes % (Manual) Nucleated RBC % Seg Neutrophils # Man Lymphocytes # (Manual) Monocytes # (Manual) PT INR APTT D-Dimer POC ABG pH ABG pH POC ABG pO2 ABG pO2 ABG HCO3 ABG O2 Saturation ABG Base Excess ABG Hemoglobin VBG pH Oxyhemoglobin Sodium Potassium Chloride Carbon Dioxide 9 L* BUN 45 H Creatinine 1.7 H Glucose 1155 H* POC Glucose Lactic Acid Calcium 7.9 L Phosphorus 10.90 H D 5.30 H D Magnesium 3.10 H 2.90 H Iron TIBC Direct Bilirubin AST ALT Alkaline Phosphatase Total Creatine Kinase CK-MB (CK-2) C-Reactive Protein Total Protein Albumin Vitamin B12 Salicylates Acetaminophen Miscellaneous Test Crossmatch 03/30/19 03/30/19 03/30/19 03:15 03:30 04:23 WBC 18.0 H RBC 2.31 L Hgb 7.3 L Hct 23.8 L D MCV 103 H MCH MCHC RDW 17.1 H Plt Count [place] % (Auto) Lymph # Seg Neuts % (Manual) 79.0 H Lymphocytes % (Manual) Nucleated RBC % Seg Neutrophils # Man 14.2 H Lymphocytes # (Manual) Monocytes # (Manual) PT INR APTT D-Dimer POC ABG pH 7.251 L ABG pH POC ABG pO2 156 H ABG pO2 ABG HCO3 ABG O2 Saturation ABG Base Excess ABG Hemoglobin VBG pH Oxyhemoglobin Sodium Potassium Chloride Carbon Dioxide BUN Creatinine Glucose POC Glucose Lactic Acid Calcium Phosphorus Magnesium Iron TIBC Direct Bilirubin AST ALT Alkaline Phosphatase Total Creatine Kinase CK-MB (CK-2) C-Reactive Protein Total Protein Albumin Vitamin B12 Salicylates Acetaminophen Miscellaneous Test Crossmatch See Detail 03/30/19 03/30/19 03/30/19 05:26 05:26 10:38 WBC RBC Hgb Hct MCV MCH MCHC RDW Plt Count [place] % (Auto) Lymph # Seg Neuts % (Manual) Lymphocytes % (Manual) Nucleated RBC % Seg Neutrophils # Man Lymphocytes # (Manual) Monocytes # (Manual) PT INR APTT D-Dimer POC ABG pH ABG pH POC ABG pO2 ABG pO2 ABG HCO3 ABG O2 Saturation ABG Base Excess ABG Hemoglobin VBG pH Oxyhemoglobin Sodium 158 H D Potassium 3.5 L Chloride 109.3 H Carbon Dioxide 19 L D BUN 40 H Creatinine 1.5 H Glucose 760 H* POC Glucose 380 H Lactic Acid Calcium 7.3 L Phosphorus Magnesium 2.60 H Iron TIBC Direct Bilirubin AST 31321 H ALT 2156 H Alkaline Phosphatase 271 H Total Creatine Kinase 2465 H CK-MB (CK-2) 52.7 H C-Reactive Protein Total Protein 4.5 L Albumin 2.4 L Vitamin B12 Salicylates Acetaminophen Miscellaneous Test Crossmatch 03/30/19 03/30/19 03/30/19 11:08 12:25 12:57 WBC RBC Hgb Hct MCV MCH MCHC RDW Plt Count [place] % (Auto) Lymph # Seg Neuts % (Manual) Lymphocytes % (Manual) Nucleated RBC % Seg Neutrophils # Man Lymphocytes # (Manual) Monocytes # (Manual) PT INR APTT D-Dimer POC ABG pH ABG pH POC ABG pO2 ABG pO2 ABG HCO3 ABG O2 Saturation ABG Base Excess ABG Hemoglobin VBG pH Oxyhemoglobin Sodium 156 H Potassium 3.2 L Chloride 116.4 H Carbon Dioxide 21 L BUN 37 H Creatinine Glucose 162 H POC Glucose 263 H 196 H Lactic Acid Calcium 7.2 L Phosphorus Magnesium Iron TIBC Direct Bilirubin AST ALT Alkaline Phosphatase Total Creatine Kinase CK-MB (CK-2) C-Reactive Protein Total Protein Albumin Vitamin B12 Salicylates Acetaminophen Miscellaneous Test Crossmatch 03/30/19 03/30/19 03/30/19 12:57 12:57 12:57 WBC RBC Hgb Hct MCV MCH MCHC RDW Plt Count [place] % (Auto) Lymph # Seg Neuts % (Manual) Lymphocytes % (Manual) Nucleated RBC % Seg Neutrophils # Man Lymphocytes # (Manual) Monocytes # (Manual) PT 21.0 H INR 1.86 H APTT D-Dimer POC ABG pH ABG pH POC ABG pO2 ABG pO2 ABG HCO3 ABG O2 Saturation ABG Base Excess ABG Hemoglobin VBG pH Oxyhemoglobin Sodium Potassium Chloride Carbon Dioxide BUN Creatinine Glucose POC Glucose Lactic Acid 9.00 H* Calcium Phosphorus Magnesium Iron TIBC Direct Bilirubin AST ALT Alkaline Phosphatase Total Creatine Kinase CK-MB (CK-2) C-Reactive Protein 2.40 H Total Protein Albumin Vitamin B12 Salicylates Acetaminophen Miscellaneous Test Crossmatch 03/30/19 03/30/19 03/30/19 13:23 14:00 14:47 WBC RBC Hgb Hct MCV MCH MCHC RDW Plt Count [place] % (Auto) Lymph # Seg Neuts % (Manual) Lymphocytes % (Manual) Nucleated RBC % Seg Neutrophils # Man Lymphocytes # (Manual) Monocytes # (Manual) PT INR APTT D-Dimer POC ABG pH ABG pH POC ABG pO2 ABG pO2 ABG HCO3 ABG O2 Saturation ABG Base Excess ABG Hemoglobin VBG pH Oxyhemoglobin Sodium Potassium Chloride Carbon Dioxide BUN Creatinine Glucose POC Glucose 176 H 245 H Lactic Acid Calcium Phosphorus Magnesium Iron TIBC Direct Bilirubin AST ALT Alkaline Phosphatase Total Creatine Kinase CK-MB (CK-2) C-Reactive Protein Total Protein Albumin Vitamin B12 Salicylates Acetaminophen Miscellaneous Test Flexitest 1 H Crossmatch 03/30/19 03/30/19 03/30/19 16:11 17:11 17:46 WBC RBC Hgb Hct MCV MCH MCHC RDW Plt Count [place] % (Auto) Lymph # Seg Neuts % (Manual) Lymphocytes % (Manual) Nucleated RBC % Seg Neutrophils # Man Lymphocytes # (Manual) Monocytes # (Manual) PT INR APTT D-Dimer POC ABG pH ABG pH POC ABG pO2 ABG pO2 ABG HCO3 ABG O2 Saturation ABG Base Excess ABG Hemoglobin VBG pH Oxyhemoglobin Sodium Potassium Chloride Carbon Dioxide BUN Creatinine Glucose POC Glucose 181 H 167 H 125 H Lactic Acid Calcium Phosphorus Magnesium Iron TIBC Direct Bilirubin AST ALT Alkaline Phosphatase Total Creatine Kinase CK-MB (CK-2) C-Reactive Protein Total Protein Albumin Vitamin B12 Salicylates Acetaminophen Miscellaneous Test Crossmatch 03/30/19 03/30/19 03/30/19 18:59 21:31 22:19 WBC RBC Hgb Hct MCV MCH MCHC RDW Plt Count [place] % (Auto) Lymph # Seg Neuts % (Manual) Lymphocytes % (Manual) Nucleated RBC % Seg Neutrophils # Man Lymphocytes # (Manual) Monocytes # (Manual) PT INR APTT D-Dimer POC ABG pH ABG pH POC ABG pO2 ABG pO2 ABG HCO3 ABG O2 Saturation ABG Base Excess ABG Hemoglobin VBG pH Oxyhemoglobin Sodium Potassium Chloride Carbon Dioxide BUN Creatinine Glucose POC Glucose 140 H 166 H 115 H Lactic Acid Calcium Phosphorus Magnesium Iron TIBC Direct Bilirubin AST ALT Alkaline Phosphatase Total Creatine Kinase CK-MB (CK-2) C-Reactive Protein Total Protein Albumin Vitamin B12 Salicylates Acetaminophen Miscellaneous Test Crossmatch 03/30/19 03/30/19 03/30/19 23:13 Unknown Unknown WBC RBC Hgb Hct MCV MCH MCHC RDW Plt Count [place] % (Auto) Lymph # Seg Neuts % (Manual) Lymphocytes % (Manual) Nucleated RBC % Seg Neutrophils # Man Lymphocytes # (Manual) Monocytes # (Manual) PT INR APTT D-Dimer POC ABG pH ABG pH POC ABG pO2 ABG pO2 47.8 L ABG HCO3 18.8 L ABG O2 Saturation 83.8 L ABG Base Excess -5.4 L ABG Hemoglobin 6.8 L VBG pH Oxyhemoglobin 81.8 L Sodium 157 H Potassium 3.3 L Chloride 117.9 H Carbon Dioxide 20 L BUN 36 H Creatinine Glucose 150 H POC Glucose 112 H Lactic Acid Calcium 7.2 L Phosphorus Magnesium Iron TIBC Direct Bilirubin AST ALT Alkaline Phosphatase Total Creatine Kinase CK-MB (CK-2) C-Reactive Protein Total Protein Albumin Vitamin B12 Salicylates Acetaminophen Miscellaneous Test Crossmatch 03/30/19 03/30/19 03/31/19 Unknown Unknown 00:03 WBC RBC Hgb Hct MCV MCH MCHC RDW Plt Count [place] % (Auto) Lymph # Seg Neuts % (Manual) Lymphocytes % (Manual) Nucleated RBC % Seg Neutrophils # Man Lymphocytes # (Manual) Monocytes # (Manual) PT INR APTT D-Dimer POC ABG pH ABG pH POC ABG pO2 ABG pO2 ABG HCO3 ABG O2 Saturation ABG Base Excess ABG Hemoglobin VBG pH Oxyhemoglobin Sodium Potassium Chloride Carbon Dioxide BUN Creatinine Glucose POC Glucose 188 H Lactic Acid Calcium Phosphorus Magnesium Iron TIBC Direct Bilirubin AST ALT Alkaline Phosphatase Total Creatine Kinase CK-MB (CK-2) C-Reactive Protein Total Protein Albumin Vitamin B12 Salicylates 0.8 L Acetaminophen < 5.0 L Miscellaneous Test Crossmatch 03/31/19 03/31/19 03/31/19 01:18 03:07 03:50 WBC RBC Hgb Hct MCV MCH MCHC RDW Plt Count [place] % (Auto) Lymph # Seg Neuts % (Manual) Lymphocytes % (Manual) Nucleated RBC % Seg Neutrophils # Man Lymphocytes # (Manual) Monocytes # (Manual) PT INR APTT D-Dimer POC ABG pH ABG pH 7.525 H POC ABG pO2 ABG pO2 178.0 H ABG HCO3 19.5 L ABG O2 Saturation 99.2 H ABG Base Excess -3.1 L ABG Hemoglobin 5.8 L VBG pH Oxyhemoglobin Sodium Potassium Chloride Carbon Dioxide BUN Creatinine Glucose POC Glucose 114 H 107 H Lactic Acid Calcium Phosphorus Magnesium Iron TIBC Direct Bilirubin AST ALT Alkaline Phosphatase Total Creatine Kinase CK-MB (CK-2) C-Reactive Protein Total Protein Albumin Vitamin B12 Salicylates Acetaminophen Miscellaneous Test Crossmatch 03/31/19 03/31/19 03/31/19 03:51 03:51 04:05 WBC RBC 1.89 L Hgb 6.1 L Hct 18.2 L* MCV MCH MCHC RDW 17.7 H Plt Count 89 L [place] % (Auto) Lymph # Seg Neuts % (Manual) 86.0 H Lymphocytes % (Manual) 10.0 L Nucleated RBC % 1.0 H Seg Neutrophils # Man Lymphocytes # (Manual) 0.7 L Monocytes # (Manual) PT INR APTT D-Dimer POC ABG pH ABG pH POC ABG pO2 ABG pO2 ABG HCO3 ABG O2 Saturation ABG Base Excess ABG Hemoglobin VBG pH Oxyhemoglobin Sodium 151 H Potassium 3.2 L Chloride 119.4 H Carbon Dioxide 17 L BUN 35 H Creatinine Glucose 139 H POC Glucose 153 H Lactic Acid Calcium 7.1 L Phosphorus Magnesium Iron TIBC Direct Bilirubin AST ALT Alkaline Phosphatase Total Creatine Kinase CK-MB (CK-2) C-Reactive Protein Total Protein Albumin Vitamin B12 Salicylates Acetaminophen Miscellaneous Test Crossmatch 03/31/19 03/31/19 03/31/19 05:05 05:35 06:23 WBC RBC Hgb Hct MCV MCH MCHC RDW Plt Count [place] % (Auto) Lymph # Seg Neuts % (Manual) Lymphocytes % (Manual) Nucleated RBC % Seg Neutrophils # Man Lymphocytes # (Manual) Monocytes # (Manual) PT INR APTT D-Dimer POC ABG pH ABG pH POC ABG pO2 ABG pO2 ABG HCO3 ABG O2 Saturation ABG Base Excess ABG Hemoglobin VBG pH Oxyhemoglobin Sodium Potassium Chloride Carbon Dioxide BUN Creatinine Glucose POC Glucose 176 H 133 H Lactic Acid 3.20 H* Calcium Phosphorus Magnesium Iron TIBC Direct Bilirubin AST ALT Alkaline Phosphatase Total Creatine Kinase CK-MB (CK-2) C-Reactive Protein Total Protein Albumin Vitamin B12 Salicylates Acetaminophen Miscellaneous Test Crossmatch 03/31/19 03/31/19 03/31/19 07:50 07:51 08:20 WBC RBC Hgb Hct MCV MCH MCHC RDW Plt Count [place] % (Auto) Lymph # Seg Neuts % (Manual) Lymphocytes % (Manual) Nucleated RBC % Seg Neutrophils # Man Lymphocytes # (Manual) Monocytes # (Manual) PT INR APTT D-Dimer POC ABG pH ABG pH POC ABG pO2 ABG pO2 ABG HCO3 ABG O2 Saturation ABG Base Excess ABG Hemoglobin VBG pH Oxyhemoglobin Sodium Potassium Chloride Carbon Dioxide BUN Creatinine Glucose POC Glucose 135 H Lactic Acid 3.30 H* Calcium Phosphorus Magnesium Iron 26 L TIBC 193 L Direct Bilirubin AST ALT Alkaline Phosphatase Total Creatine Kinase CK-MB (CK-2) C-Reactive Protein Total Protein Albumin Vitamin B12 Salicylates Acetaminophen Miscellaneous Test Crossmatch 03/31/19 03/31/19 03/31/19 08:20 08:20 09:06 WBC RBC Hgb Hct MCV MCH MCHC RDW Plt Count [place] % (Auto) Lymph # Seg Neuts % (Manual) Lymphocytes % (Manual) Nucleated RBC % Seg Neutrophils # Man Lymphocytes # (Manual) Monocytes # (Manual) PT INR APTT D-Dimer POC ABG pH ABG pH POC ABG pO2 ABG pO2 ABG HCO3 ABG O2 Saturation ABG Base Excess ABG Hemoglobin VBG pH Oxyhemoglobin Sodium 153 H Potassium 3.0 L Chloride 118.9 H Carbon Dioxide 18 L BUN 37 H Creatinine Glucose 132 H POC Glucose 145 H Lactic Acid Calcium 7.1 L Phosphorus Magnesium Iron TIBC Direct Bilirubin AST ALT Alkaline Phosphatase Total Creatine Kinase CK-MB (CK-2) C-Reactive Protein Total Protein Albumin Vitamin B12 > 2000 H Salicylates Acetaminophen Miscellaneous Test Crossmatch 03/31/19 03/31/19 03/31/19 10:47 11:49 13:04 WBC RBC Hgb Hct MCV MCH MCHC RDW Plt Count [place] % (Auto) Lymph # Seg Neuts % (Manual) Lymphocytes % (Manual) Nucleated RBC % Seg Neutrophils # Man Lymphocytes # (Manual) Monocytes # (Manual) PT INR APTT D-Dimer POC ABG pH ABG pH POC ABG pO2 ABG pO2 ABG HCO3 ABG O2 Saturation ABG Base Excess ABG Hemoglobin VBG pH Oxyhemoglobin Sodium Potassium Chloride Carbon Dioxide BUN Creatinine Glucose POC Glucose 153 H 174 H 214 H Lactic Acid Calcium Phosphorus Magnesium Iron TIBC Direct Bilirubin AST ALT Alkaline Phosphatase Total Creatine Kinase CK-MB (CK-2) C-Reactive Protein Total Protein Albumin Vitamin B12 Salicylates Acetaminophen Miscellaneous Test Crossmatch 03/31/19 03/31/19 03/31/19 13:42 15:08 16:08 WBC RBC Hgb Hct MCV MCH MCHC RDW Plt Count [place] % (Auto) Lymph # Seg Neuts % (Manual) Lymphocytes % (Manual) Nucleated RBC % Seg Neutrophils # Man Lymphocytes # (Manual) Monocytes # (Manual) PT INR APTT D-Dimer POC ABG pH ABG pH POC ABG pO2 ABG pO2 ABG HCO3 ABG O2 Saturation ABG Base Excess ABG Hemoglobin VBG pH Oxyhemoglobin Sodium Potassium Chloride Carbon Dioxide BUN Creatinine Glucose POC Glucose 186 H 136 H 150 H Lactic Acid Calcium Phosphorus Magnesium Iron TIBC Direct Bilirubin AST ALT Alkaline Phosphatase Total Creatine Kinase CK-MB (CK-2) C-Reactive Protein Total Protein Albumin Vitamin B12 Salicylates Acetaminophen Miscellaneous Test Crossmatch 03/31/19 03/31/19 03/31/19 17:11 17:30 17:30 WBC RBC Hgb 7.7 L Hct 23.0 L MCV MCH MCHC RDW Plt Count [place] % (Auto) Lymph # Seg Neuts % (Manual) Lymphocytes % (Manual) Nucleated RBC % Seg Neutrophils # Man Lymphocytes # (Manual) Monocytes # (Manual) PT INR APTT D-Dimer POC ABG pH ABG pH POC ABG pO2 ABG pO2 ABG HCO3 ABG O2 Saturation ABG Base Excess ABG Hemoglobin VBG pH Oxyhemoglobin Sodium 153 H Potassium 3.5 L Chloride 119.3 H Carbon Dioxide 20 L BUN 34 H Creatinine Glucose 162 H POC Glucose 140 H Lactic Acid Calcium 7.6 L Phosphorus Magnesium Iron TIBC Direct Bilirubin AST ALT Alkaline Phosphatase Total Creatine Kinase CK-MB (CK-2) C-Reactive Protein Total Protein Albumin Vitamin B12 Salicylates Acetaminophen Miscellaneous Test Crossmatch 03/31/19 03/31/19 03/31/19 17:59 18:58 20:28 WBC RBC Hgb Hct MCV MCH MCHC RDW Plt Count [place] % (Auto) Lymph # Seg Neuts % (Manual) Lymphocytes % (Manual) Nucleated RBC % Seg Neutrophils # Man Lymphocytes # (Manual) Monocytes # (Manual) PT INR APTT D-Dimer POC ABG pH ABG pH POC ABG pO2 ABG pO2 ABG HCO3 ABG O2 Saturation ABG Base Excess ABG Hemoglobin VBG pH Oxyhemoglobin Sodium Potassium Chloride Carbon Dioxide BUN Creatinine Glucose POC Glucose 156 H 152 H 138 H Lactic Acid Calcium Phosphorus Magnesium Iron TIBC Direct Bilirubin AST ALT Alkaline Phosphatase Total Creatine Kinase CK-MB (CK-2) C-Reactive Protein Total Protein Albumin Vitamin B12 Salicylates Acetaminophen Miscellaneous Test Crossmatch 03/31/19 03/31/19 03/31/19 21:09 22:15 23:10 WBC RBC Hgb Hct MCV MCH MCHC RDW Plt Count [place] % (Auto) Lymph # Seg Neuts % (Manual) Lymphocytes % (Manual) Nucleated RBC % Seg Neutrophils # Man Lymphocytes # (Manual) Monocytes # (Manual) PT INR APTT D-Dimer POC ABG pH ABG pH POC ABG pO2 ABG pO2 ABG HCO3 ABG O2 Saturation ABG Base Excess ABG Hemoglobin VBG pH Oxyhemoglobin Sodium Potassium Chloride Carbon Dioxide BUN Creatinine Glucose POC Glucose 136 H 137 H 148 H Lactic Acid Calcium Phosphorus Magnesium Iron TIBC Direct Bilirubin AST ALT Alkaline Phosphatase Total Creatine Kinase CK-MB (CK-2) C-Reactive Protein Total Protein Albumin Vitamin B12 Salicylates Acetaminophen Miscellaneous Test Crossmatch 04/01/19 04/01/19 04/01/19 00:05 01:17 02:11 WBC RBC Hgb Hct MCV MCH MCHC RDW Plt Count [place] % (Auto) Lymph # Seg Neuts % (Manual) Lymphocytes % (Manual) Nucleated RBC % Seg Neutrophils # Man Lymphocytes # (Manual) Monocytes # (Manual) PT INR APTT D-Dimer POC ABG pH ABG pH POC ABG pO2 ABG pO2 ABG HCO3 ABG O2 Saturation ABG Base Excess ABG Hemoglobin VBG pH Oxyhemoglobin Sodium Potassium Chloride Carbon Dioxide BUN Creatinine Glucose POC Glucose 143 H 151 H 155 H Lactic Acid Calcium Phosphorus Magnesium Iron TIBC Direct Bilirubin AST ALT Alkaline Phosphatase Total Creatine Kinase CK-MB (CK-2) C-Reactive Protein Total Protein Albumin Vitamin B12 Salicylates Acetaminophen Miscellaneous Test Crossmatch 04/01/19 04/01/19 04/01/19 03:12 04:03 04:16 WBC RBC Hgb Hct MCV MCH MCHC RDW Plt Count [place] % (Auto) Lymph # Seg Neuts % (Manual) Lymphocytes % (Manual) Nucleated RBC % Seg Neutrophils # Man Lymphocytes # (Manual) Monocytes # (Manual) PT INR APTT D-Dimer POC ABG pH ABG pH POC ABG pO2 ABG pO2 ABG HCO3 ABG O2 Saturation ABG Base Excess ABG Hemoglobin VBG pH Oxyhemoglobin Sodium Potassium Chloride Carbon Dioxide BUN Creatinine Glucose POC Glucose 140 H 143 H 142 H Lactic Acid Calcium Phosphorus Magnesium Iron TIBC Direct Bilirubin AST ALT Alkaline Phosphatase Total Creatine Kinase CK-MB (CK-2) C-Reactive Protein Total Protein Albumin Vitamin B12 Salicylates Acetaminophen Miscellaneous Test Crossmatch 04/01/19 04/01/19 04/01/19 05:01 05:01 05:08 WBC RBC 2.05 L Hgb 6.8 L Hct 20.5 L MCV 100 H MCH 33 H MCHC RDW 17.7 H Plt Count 53 L [place] % (Auto) Lymph # Seg Neuts % (Manual) 71.0 H Lymphocytes % (Manual) Nucleated RBC % Seg Neutrophils # Man Lymphocytes # (Manual) Monocytes # (Manual) PT INR APTT D-Dimer POC ABG pH ABG pH POC ABG pO2 ABG pO2 ABG HCO3 ABG O2 Saturation ABG Base Excess ABG Hemoglobin VBG pH Oxyhemoglobin Sodium Potassium Chloride Carbon Dioxide BUN Creatinine Glucose POC Glucose 119 H Lactic Acid Calcium Phosphorus Magnesium Iron TIBC Direct Bilirubin 0.3 H AST 4601 H ALT 1542 H Alkaline Phosphatase 185 H Total Creatine Kinase CK-MB (CK-2) C-Reactive Protein Total Protein 3.8 L Albumin 1.6 L Vitamin B12 Salicylates Acetaminophen Miscellaneous Test Crossmatch 04/01/19 04/01/19 04/01/19 05:23 06:37 08:15 WBC RBC Hgb Hct MCV MCH MCHC RDW Plt Count [place] % (Auto) Lymph # Seg Neuts % (Manual) Lymphocytes % (Manual) Nucleated RBC % Seg Neutrophils # Man Lymphocytes # (Manual) Monocytes # (Manual) PT INR APTT D-Dimer POC ABG pH ABG pH POC ABG pO2 ABG pO2 ABG HCO3 ABG O2 Saturation ABG Base Excess ABG Hemoglobin VBG pH Oxyhemoglobin Sodium Potassium Chloride Carbon Dioxide BUN Creatinine Glucose POC Glucose 115 H 124 H 138 H Lactic Acid Calcium Phosphorus Magnesium Iron TIBC Direct Bilirubin AST ALT Alkaline Phosphatase Total Creatine Kinase CK-MB (CK-2) C-Reactive Protein Total Protein Albumin Vitamin B12 Salicylates Acetaminophen Miscellaneous Test Crossmatch 04/01/19 04/01/19 04/01/19 09:50 10:10 10:31 WBC RBC Hgb 6.5 L Hct 19.2 L* MCV MCH MCHC RDW Plt Count [place] % (Auto) Lymph # Seg Neuts % (Manual) Lymphocytes % (Manual) Nucleated RBC % Seg Neutrophils # Man Lymphocytes # (Manual) Monocytes # (Manual) PT INR APTT D-Dimer POC ABG pH ABG pH POC ABG pO2 ABG pO2 ABG HCO3 ABG O2 Saturation ABG Base Excess ABG Hemoglobin VBG pH Oxyhemoglobin Sodium 149 H Potassium 3.5 L Chloride 119.9 H Carbon Dioxide 21 L BUN 33 H Creatinine 0.5 L Glucose 142 H POC Glucose 185 H Lactic Acid Calcium 7.3 L Phosphorus Magnesium Iron TIBC Direct Bilirubin AST 3686 H ALT 1440 H Alkaline Phosphatase 185 H Total Creatine Kinase CK-MB (CK-2) C-Reactive Protein Total Protein 3.7 L Albumin 1.8 L Vitamin B12 Salicylates Acetaminophen Miscellaneous Test Crossmatch 04/01/19 04/01/19 04/01/19 11:35 13:05 14:35 WBC RBC Hgb Hct MCV MCH MCHC RDW Plt Count [place] % (Auto) Lymph # Seg Neuts % (Manual) Lymphocytes % (Manual) Nucleated RBC % Seg Neutrophils # Man Lymphocytes # (Manual) Monocytes # (Manual) PT INR APTT D-Dimer POC ABG pH ABG pH POC ABG pO2 ABG pO2 ABG HCO3 ABG O2 Saturation ABG Base Excess ABG Hemoglobin VBG pH Oxyhemoglobin Sodium Potassium Chloride Carbon Dioxide BUN Creatinine Glucose POC Glucose 201 H 169 H 134 H Lactic Acid Calcium Phosphorus Magnesium Iron TIBC Direct Bilirubin AST ALT Alkaline Phosphatase Total Creatine Kinase CK-MB (CK-2) C-Reactive Protein Total Protein Albumin Vitamin B12 Salicylates Acetaminophen Miscellaneous Test Crossmatch 04/01/19 04/01/19 04/01/19 17:13 17:14 18:30 WBC RBC Hgb Hct MCV MCH MCHC RDW Plt Count [place] % (Auto) Lymph # Seg Neuts % (Manual) Lymphocytes % (Manual) Nucleated RBC % Seg Neutrophils # Man Lymphocytes # (Manual) Monocytes # (Manual) PT INR APTT D-Dimer 5203.68 H POC ABG pH ABG pH POC ABG pO2 ABG pO2 ABG HCO3 ABG O2 Saturation ABG Base Excess ABG Hemoglobin VBG pH Oxyhemoglobin Sodium Potassium Chloride Carbon Dioxide BUN Creatinine Glucose POC Glucose 69 L 128 H Lactic Acid Calcium Phosphorus Magnesium Iron TIBC Direct Bilirubin AST ALT Alkaline Phosphatase Total Creatine Kinase CK-MB (CK-2) C-Reactive Protein Total Protein Albumin Vitamin B12 Salicylates Acetaminophen Miscellaneous Test Crossmatch 04/01/19 04/01/19 04/02/19 22:50 Unknown 03:40 WBC RBC Hgb Hct MCV MCH MCHC RDW Plt Count [place] % (Auto) Lymph # Seg Neuts % (Manual) Lymphocytes % (Manual) Nucleated RBC % Seg Neutrophils # Man Lymphocytes # (Manual) Monocytes # (Manual) PT INR APTT D-Dimer POC ABG pH ABG pH POC ABG pO2 ABG pO2 78.3 L 142.8 H ABG HCO3 15.5 L ABG O2 Saturation ABG Base Excess -3.5 L -8.2 L ABG Hemoglobin 6.8 L 8.2 L VBG pH Oxyhemoglobin 94.3 L Sodium Potassium Chloride Carbon Dioxide BUN Creatinine Glucose POC Glucose 342 H Lactic Acid Calcium Phosphorus Magnesium Iron TIBC Direct Bilirubin AST ALT Alkaline Phosphatase Total Creatine Kinase CK-MB (CK-2) C-Reactive Protein Total Protein Albumin Vitamin B12 Salicylates Acetaminophen Miscellaneous Test Crossmatch 04/02/19 04/02/19 04/02/19 03:49 06:50 07:48 WBC RBC 2.65 L Hgb 8.6 L Hct 25.1 L MCV MCH MCHC RDW 17.6 H Plt Count 48 L [place] % (Auto) Lymph # Seg Neuts % (Manual) Lymphocytes % (Manual) Nucleated RBC % Seg Neutrophils # Man Lymphocytes # (Manual) Monocytes # (Manual) PT INR APTT D-Dimer POC ABG pH ABG pH POC ABG pO2 ABG pO2 ABG HCO3 ABG O2 Saturation ABG Base Excess ABG Hemoglobin VBG pH Oxyhemoglobin Sodium Potassium Chloride Carbon Dioxide BUN Creatinine Glucose POC Glucose 247 H 200 H Lactic Acid Calcium Phosphorus Magnesium Iron TIBC Direct Bilirubin AST ALT Alkaline Phosphatase Total Creatine Kinase CK-MB (CK-2) C-Reactive Protein Total Protein Albumin Vitamin B12 Salicylates Acetaminophen Miscellaneous Test Crossmatch 04/02/19 04/02/19 04/02/19 07:48 11:18 14:07 WBC RBC Hgb Hct MCV MCH MCHC RDW Plt Count [place] % (Auto) Lymph # Seg Neuts % (Manual) Lymphocytes % (Manual) Nucleated RBC % Seg Neutrophils # Man Lymphocytes # (Manual) Monocytes # (Manual) PT INR APTT D-Dimer POC ABG pH ABG pH POC ABG pO2 ABG pO2 ABG HCO3 ABG O2 Saturation ABG Base Excess ABG Hemoglobin VBG pH Oxyhemoglobin Sodium Potassium 3.5 L Chloride 115.7 H Carbon Dioxide 19 L BUN 29 H Creatinine 0.5 L Glucose 159 H POC Glucose 154 H 149 H Lactic Acid Calcium 7.5 L Phosphorus Magnesium Iron TIBC Direct Bilirubin AST 1418 H ALT 1134 H Alkaline Phosphatase 242 H Total Creatine Kinase CK-MB (CK-2) C-Reactive Protein Total Protein 4.2 L Albumin 2.1 L Vitamin B12 Salicylates Acetaminophen Miscellaneous Test Crossmatch 04/02/19 04/02/19 04/02/19 18:09 19:46 23:05 WBC RBC Hgb Hct MCV MCH MCHC RDW Plt Count [place] % (Auto) Lymph # Seg Neuts % (Manual) Lymphocytes % (Manual) Nucleated RBC % Seg Neutrophils # Man Lymphocytes # (Manual) Monocytes # (Manual) PT INR APTT D-Dimer POC ABG pH ABG pH POC ABG pO2 ABG pO2 ABG HCO3 ABG O2 Saturation ABG Base Excess ABG Hemoglobin VBG pH Oxyhemoglobin Sodium Potassium Chloride Carbon Dioxide BUN Creatinine Glucose POC Glucose 188 H 209 H 247 H Lactic Acid Calcium Phosphorus Magnesium Iron TIBC Direct Bilirubin AST ALT Alkaline Phosphatase Total Creatine Kinase CK-MB (CK-2) C-Reactive Protein Total Protein Albumin Vitamin B12 Salicylates Acetaminophen Miscellaneous Test Crossmatch 04/03/19 04/03/19 04/03/19 02:58 03:40 03:40 WBC RBC 2.87 L Hgb 9.3 L Hct 27.0 L MCV MCH MCHC RDW 17.2 H Plt Count 65 L [place] % (Auto) 9.8 H Lymph # 1.1 L Seg Neuts % (Manual) Lymphocytes % (Manual) Nucleated RBC % Seg Neutrophils # Man Lymphocytes # (Manual) Monocytes # (Manual) PT INR APTT D-Dimer POC ABG pH ABG pH POC ABG pO2 ABG pO2 ABG HCO3 ABG O2 Saturation ABG Base Excess ABG Hemoglobin VBG pH Oxyhemoglobin Sodium 147 H Potassium 3.5 L Chloride 116.7 H Carbon Dioxide 18 L BUN Creatinine 0.4 L Glucose 150 H POC Glucose 166 H Lactic Acid Calcium 8.1 L Phosphorus 2.20 L Magnesium Iron TIBC Direct Bilirubin AST 594 H ALT 861 H Alkaline Phosphatase 299 H Total Creatine Kinase CK-MB (CK-2) C-Reactive Protein Total Protein 4.4 L Albumin 2.1 L Vitamin B12 Salicylates Acetaminophen Miscellaneous Test Crossmatch 04/03/19 04/03/19 04/03/19 05:35 07:02 08:23 WBC RBC Hgb Hct MCV MCH MCHC RDW Plt Count [place] % (Auto) Lymph # Seg Neuts % (Manual) Lymphocytes % (Manual) Nucleated RBC % Seg Neutrophils # Man Lymphocytes # (Manual) Monocytes # (Manual) PT INR APTT D-Dimer POC ABG pH ABG pH POC ABG pO2 ABG pO2 97.7 H ABG HCO3 19.3 L ABG O2 Saturation ABG Base Excess -5.0 L ABG Hemoglobin 8.0 L VBG pH Oxyhemoglobin Sodium Potassium Chloride Carbon Dioxide BUN Creatinine Glucose POC Glucose 135 H 132 H Lactic Acid Calcium Phosphorus Magnesium Iron TIBC Direct Bilirubin AST ALT Alkaline Phosphatase Total Creatine Kinase CK-MB (CK-2) C-Reactive Protein Total Protein Albumin Vitamin B12 Salicylates Acetaminophen Miscellaneous Test Crossmatch 04/03/19 04/03/19 04/03/19 11:58 15:11 17:53 WBC RBC Hgb Hct MCV MCH MCHC RDW Plt Count [place] % (Auto) Lymph # Seg Neuts % (Manual) Lymphocytes % (Manual) Nucleated RBC % Seg Neutrophils # Man Lymphocytes # (Manual) Monocytes # (Manual) PT INR APTT D-Dimer POC ABG pH ABG pH POC ABG pO2 ABG pO2 ABG HCO3 ABG O2 Saturation ABG Base Excess ABG Hemoglobin VBG pH Oxyhemoglobin Sodium Potassium Chloride Carbon Dioxide BUN Creatinine Glucose POC Glucose 179 H 213 H 223 H Lactic Acid Calcium Phosphorus Magnesium Iron TIBC Direct Bilirubin AST ALT Alkaline Phosphatase Total Creatine Kinase CK-MB (CK-2) C-Reactive Protein Total Protein Albumin Vitamin B12 Salicylates Acetaminophen Miscellaneous Test Crossmatch 04/03/19 04/04/19 04/04/19 23:06 02:36 06:41 WBC RBC Hgb Hct MCV MCH MCHC RDW Plt Count [place] % (Auto) Lymph # Seg Neuts % (Manual) Lymphocytes % (Manual) Nucleated RBC % Seg Neutrophils # Man Lymphocytes # (Manual) Monocytes # (Manual) PT INR APTT D-Dimer POC ABG pH ABG pH POC ABG pO2 ABG pO2 ABG HCO3 ABG O2 Saturation ABG Base Excess ABG Hemoglobin VBG pH Oxyhemoglobin Sodium Potassium Chloride Carbon Dioxide BUN Creatinine Glucose POC Glucose 189 H 157 H 131 H Lactic Acid Calcium Phosphorus Magnesium Iron TIBC Direct Bilirubin AST ALT Alkaline Phosphatase Total Creatine Kinase CK-MB (CK-2) C-Reactive Protein Total Protein Albumin Vitamin B12 Salicylates Acetaminophen Miscellaneous Test Crossmatch 04/04/19 04/04/19 04/04/19 11:42 15:45 18:21 WBC RBC Hgb Hct MCV MCH MCHC RDW Plt Count [place] % (Auto) Lymph # Seg Neuts % (Manual) Lymphocytes % (Manual) Nucleated RBC % Seg Neutrophils # Man Lymphocytes # (Manual) Monocytes # (Manual) PT INR APTT D-Dimer POC ABG pH ABG pH POC ABG pO2 ABG pO2 ABG HCO3 ABG O2 Saturation ABG Base Excess ABG Hemoglobin VBG pH Oxyhemoglobin Sodium Potassium Chloride Carbon Dioxide BUN Creatinine Glucose POC Glucose 233 H 236 H 255 H Lactic Acid Calcium Phosphorus Magnesium Iron TIBC Direct Bilirubin AST ALT Alkaline Phosphatase Total Creatine Kinase CK-MB (CK-2) C-Reactive Protein Total Protein Albumin Vitamin B12 Salicylates Acetaminophen Miscellaneous Test Crossmatch 04/04/19 04/05/19 04/05/19 21:21 03:06 06:05 WBC RBC 2.68 L Hgb 8.5 L Hct 26.3 L MCV 98 H MCH MCHC RDW 17.4 H Plt Count [place] % (Auto) Lymph # Seg Neuts % (Manual) Lymphocytes % (Manual) Nucleated RBC % Seg Neutrophils # Man Lymphocytes # (Manual) Monocytes # (Manual) PT INR APTT D-Dimer POC ABG pH ABG pH POC ABG pO2 ABG pO2 ABG HCO3 ABG O2 Saturation ABG Base Excess ABG Hemoglobin VBG pH Oxyhemoglobin Sodium Potassium Chloride Carbon Dioxide BUN Creatinine Glucose POC Glucose 132 H 161 H Lactic Acid Calcium Phosphorus Magnesium Iron TIBC Direct Bilirubin AST ALT Alkaline Phosphatase Total Creatine Kinase CK-MB (CK-2) C-Reactive Protein Total Protein Albumin Vitamin B12 Salicylates Acetaminophen Miscellaneous Test Crossmatch 04/05/19 04/05/19 04/05/19 06:05 06:49 10:23 WBC RBC Hgb Hct MCV MCH MCHC RDW Plt Count [place] % (Auto) Lymph # Seg Neuts % (Manual) Lymphocytes % (Manual) Nucleated RBC % Seg Neutrophils # Man Lymphocytes # (Manual) Monocytes # (Manual) PT INR APTT D-Dimer POC ABG pH ABG pH POC ABG pO2 ABG pO2 ABG HCO3 ABG O2 Saturation ABG Base Excess ABG Hemoglobin VBG pH Oxyhemoglobin Sodium Potassium Chloride 112.5 H Carbon Dioxide BUN Creatinine 0.2 L Glucose 237 H POC Glucose 283 H 296 H Lactic Acid Calcium 7.9 L Phosphorus Magnesium Iron TIBC Direct Bilirubin AST ALT Alkaline Phosphatase Total Creatine Kinase CK-MB (CK-2) C-Reactive Protein Total Protein Albumin Vitamin B12 Salicylates Acetaminophen Miscellaneous Test Crossmatch 04/05/19 04/05/19 04/05/19 14:46 18:19 20:35 WBC RBC Hgb Hct MCV MCH MCHC RDW Plt Count [place] % (Auto) Lymph # Seg Neuts % (Manual) Lymphocytes % (Manual) Nucleated RBC % Seg Neutrophils # Man Lymphocytes # (Manual) Monocytes # (Manual) PT INR APTT D-Dimer POC ABG pH ABG pH POC ABG pO2 ABG pO2 ABG HCO3 ABG O2 Saturation ABG Base Excess ABG Hemoglobin VBG pH Oxyhemoglobin Sodium Potassium Chloride Carbon Dioxide BUN Creatinine Glucose POC Glucose 225 H 259 H 236 H Lactic Acid Calcium Phosphorus Magnesium Iron TIBC Direct Bilirubin AST ALT Alkaline Phosphatase Total Creatine Kinase CK-MB (CK-2) C-Reactive Protein Total Protein Albumin Vitamin B12 Salicylates Acetaminophen Miscellaneous Test Crossmatch 04/05/19 04/06/19 04/06/19 23:11 00:06 03:14 WBC RBC Hgb Hct MCV MCH MCHC RDW Plt Count [place] % (Auto) Lymph # Seg Neuts % (Manual) Lymphocytes % (Manual) Nucleated RBC % Seg Neutrophils # Man Lymphocytes # (Manual) Monocytes # (Manual) PT INR APTT D-Dimer 4526.86 H POC ABG pH ABG pH POC ABG pO2 ABG pO2 ABG HCO3 ABG O2 Saturation ABG Base Excess ABG Hemoglobin VBG pH Oxyhemoglobin Sodium Potassium Chloride Carbon Dioxide BUN Creatinine Glucose POC Glucose 205 H 228 H Lactic Acid Calcium Phosphorus Magnesium Iron TIBC Direct Bilirubin AST ALT Alkaline Phosphatase Total Creatine Kinase CK-MB (CK-2) C-Reactive Protein Total Protein Albumin Vitamin B12 Salicylates Acetaminophen Miscellaneous Test Crossmatch 04/06/19 04/06/19 04/06/19 05:20 05:20 07:57 WBC 15.1 H RBC 2.90 L Hgb 9.1 L Hct 28.0 L MCV MCH MCHC RDW 17.3 H Plt Count [place] % (Auto) Lymph # Seg Neuts % (Manual) Lymphocytes % (Manual) Nucleated RBC % Seg Neutrophils # Man Lymphocytes # (Manual) Monocytes # (Manual) PT INR APTT D-Dimer POC ABG pH ABG pH POC ABG pO2 ABG pO2 ABG HCO3 ABG O2 Saturation ABG Base Excess ABG Hemoglobin VBG pH Oxyhemoglobin Sodium Potassium Chloride Carbon Dioxide BUN Creatinine 0.2 L Glucose 161 H POC Glucose 191 H Lactic Acid Calcium 8.0 L Phosphorus Magnesium Iron TIBC Direct Bilirubin AST ALT Alkaline Phosphatase Total Creatine Kinase CK-MB (CK-2) C-Reactive Protein Total Protein Albumin Vitamin B12 Salicylates Acetaminophen Miscellaneous Test Crossmatch 04/06/19 04/06/19 04/06/19 12:09 18:24 22:07 WBC RBC Hgb Hct MCV MCH MCHC RDW Plt Count [place] % (Auto) Lymph # Seg Neuts % (Manual) Lymphocytes % (Manual) Nucleated RBC % Seg Neutrophils # Man Lymphocytes # (Manual) Monocytes # (Manual) PT INR APTT D-Dimer POC ABG pH ABG pH POC ABG pO2 ABG pO2 ABG HCO3 ABG O2 Saturation ABG Base Excess ABG Hemoglobin VBG pH Oxyhemoglobin Sodium Potassium Chloride Carbon Dioxide BUN Creatinine Glucose POC Glucose 143 H 161 H 140 H Lactic Acid Calcium Phosphorus Magnesium Iron TIBC Direct Bilirubin AST ALT Alkaline Phosphatase Total Creatine Kinase CK-MB (CK-2) C-Reactive Protein Total Protein Albumin Vitamin B12 Salicylates Acetaminophen Miscellaneous Test Crossmatch 04/07/19 04/07/19 04/07/19 03:00 04:30 04:30 WBC 13.0 H RBC 2.65 L Hgb 8.3 L Hct 25.5 L MCV MCH MCHC RDW 17.0 H Plt Count [place] % (Auto) Lymph # Seg Neuts % (Manual) Lymphocytes % (Manual) Nucleated RBC % Seg Neutrophils # Man Lymphocytes # (Manual) Monocytes # (Manual) PT INR APTT D-Dimer POC ABG pH ABG pH POC ABG pO2 ABG pO2 ABG HCO3 ABG O2 Saturation ABG Base Excess ABG Hemoglobin VBG pH Oxyhemoglobin Sodium Potassium Chloride Carbon Dioxide BUN Creatinine 0.2 L Glucose 208 H POC Glucose 224 H Lactic Acid Calcium 7.7 L Phosphorus Magnesium Iron TIBC Direct Bilirubin AST ALT Alkaline Phosphatase Total Creatine Kinase CK-MB (CK-2) C-Reactive Protein Total Protein Albumin Vitamin B12 Salicylates Acetaminophen Miscellaneous Test Crossmatch 04/07/19 05:47 WBC RBC Hgb Hct MCV MCH MCHC RDW Plt Count [place] % (Auto) Lymph # Seg Neuts % (Manual) Lymphocytes % (Manual) Nucleated RBC % Seg Neutrophils # Man Lymphocytes # (Manual) Monocytes # (Manual) PT INR APTT D-Dimer POC ABG pH ABG pH POC ABG pO2 ABG pO2 ABG HCO3 ABG O2 Saturation ABG Base Excess ABG Hemoglobin VBG pH Oxyhemoglobin Sodium Potassium Chloride Carbon Dioxide BUN Creatinine Glucose POC Glucose 225 H Lactic Acid Calcium Phosphorus Magnesium Iron TIBC Direct Bilirubin AST ALT Alkaline Phosphatase Total Creatine Kinase CK-MB (CK-2) C-Reactive Protein Total Protein Albumin Vitamin B12 Salicylates Acetaminophen Miscellaneous Test Crossmatch Chest x-ray: image reviewed Allied health notes reviewed: nursing
--- NOTE | 2019-04-07 09:27 | Progress Note ---
Assessment and Plan Assessment and plan: 28 year old woman with a history of diabetes was brought to the emergency room following a cardiac arrest. Her last well-known time was 10:30 in the morning, she was traveling with a friend, she was unresponsive in the back seat. EMS was called, CPR was started and continued here in the emergency room. Patient was intubated in the ER, noted hypotensive started on dobutamine, epinephrine and Levophed drip, given IV fluids, found to be in DKA with BG ~2200, several metabolic derangements - placed on insulin drip and admitted to ICU. Still intubated on vent, minimal response. Acute respiratory failure - on vent, cont nebs, CC consulted Acute encephalopathy, POA - CT head negative - likely from cardiac arrest - consulted neurology Cardiac arrest s/p resuscitation - likely 2/2 severe hyperglycemia - preserved EF onb2d echo DKA, severe - BG was >2200 on admission - s/p insulin drip. cont iv fluid - monitor BG q4h, on TF and on subqu insulin - adjust dose as needed Shock hypotensive vs sepsis - cont iv fluid, s/p pressor support - follow Cx result, cont abx - weaned off pressor as tolerated Sepsis with possible aspiration PNA - evident on CXR on admission with left sided infiltrates - cont abx per ID Fever due to Sepsis Head lice Permethin given Acute renal failure, likely vasomotor nephropathy - resolved - cont iv fluid, monitor BMP Anemia, acute on chronic - no sign of blood loss s/p 2 Units PRBC transfused Hyperkalemia, resolved with fluid and insulin Hypernatremia Resolved hypokalemia, resolved Shock liver with elevated LFT and Coagulopathy - due to cardiac arrest and hypotension - cont to monitor Hypermagnesemia Hyperphosphatemia - cont to monitor, improved DVT Px, heparin Poor prognosis discussed with mother at bedside on 04/03/19 The high probability of a clinically significant, sudden or life threatening deterioration of the [multiple] system(s) required my full and direct attention, intervention and personal management. The aggregate critical care time was [37] minutes. This time is in addition to time spent performing reported procedures but includes the following: [x] Data Review and interpretation [x] Patient assessment and monitoring of vital signs [x] Documentation [x] Medication orders and management History Interval history: Minimal responsive still intubated Fever Hospitalist Physical - Physical exam Narrative exam: Gen: Not in acute distress, intubated, on vent HEENT: Normocephalic, atraumatic Neck: supple, no JVD Heart: S1 and S2 reg, no murmurs, rubs or gallop Lungs: Clear to auscultation, no rhonchi, no wheeze Abd: soft, non tender, non distended, normal BS, Ext: No edema, no clubbing, no cyanosis Neuro: Minimal responsive, does not follow commands, - Constitutional Vitals: Temp Pulse Resp BP Pulse Ox 100 F H 140 H 20 104/64 99 04/07/19 03:28 04/07/19 07:37 04/07/19 07:37 04/07/19 07:37 04/07/19 07:37 General appearance: Present: other (intubated) Results - Labs CBC & Chem 7: 04/07/19 04:30 04/07/19 04:30 Labs: Laboratory Last Values WBC 13.0 K/mm3 (4.5-11.0) H 04/07/19 04:30 RBC 2.65 M/mm3 (3.65-5.03) L 04/07/19 04:30 Hgb 8.3 gm/dl (10.1-14.3) L 04/07/19 04:30 Hct 25.5 % (30.3-42.9) L 04/07/19 04:30 MCV 96 fl (79-97) 04/07/19 04:30 MCH 31 pg (28-32) 04/07/19 04:30 MCHC 32 % (30-34) 04/07/19 04:30 RDW 17.0 % (13.2-15.2) H 04/07/19 04:30 Plt Count 286 K/mm3 (140-440) 04/07/19 04:30 Lymph % (Auto) 16.9 % (13.4-35.0) 04/03/19 03:40 [place] % (Auto) 9.8 % (0.0-7.3) H 04/03/19 03:40 Eos % (Auto) 3.2 % (0.0-4.3) 04/03/19 03:40 Baso % (Auto) 0.4 % (0.0-1.8) 04/03/19 03:40 Lymph # 1.1 K/mm3 (1.2-5.4) L 04/03/19 03:40 [place] # 0.6 K/mm3 (0.0-0.8) 04/03/19 03:40 Eos # 0.2 K/mm3 (0.0-0.4) 04/03/19 03:40 Baso # 0.0 K/mm3 (0.0-0.1) 04/03/19 03:40 Add Manual Diff Complete 04/01/19 05:01 Total Counted 100 04/01/19 05:01 Seg Neutrophils % 69.7 % (40.0-70.0) 04/03/19 03:40 Seg Neuts % (Manual) 71.0 % (40.0-70.0) H 04/01/19 05:01 0 % 04/01/19 05:01 20.0 % (13.4-35.0) 04/01/19 05:01 Reactive Lymphs % (Man) 0 % 04/01/19 05:01 7.0 % (0.0-7.3) 04/01/19 05:01 2.0 % (0.0-4.3) 04/01/19 05:01 0 % (0.0-1.8) 04/01/19 05:01 0 % 04/01/19 05:01 0 % 04/01/19 05:01 0 % 04/01/19 05:01 0 % 04/01/19 05:01 Nucleated RBC % Not Reportable 04/01/19 05:01 Seg Neutrophils # 4.4 K/mm3 (1.8-7.7) 04/03/19 03:40 Seg Neutrophils # Man 4.8 K/mm3 (1.8-7.7) 04/01/19 05:01 Band Neutrophils # 0.0 K/mm3 04/01/19 05:01 1.4 K/mm3 (1.2-5.4) 04/01/19 05:01 Abs React Lymphs (Man) 0.0 K/mm3 04/01/19 05:01 0.5 K/mm3 (0.0-0.8) 04/01/19 05:01 0.1 K/mm3 (0.0-0.4) 04/01/19 05:01 0.0 K/mm3 (0.0-0.1) 04/01/19 05:01 0.0 K/mm3 04/01/19 05:01 0.0 K/mm3 04/01/19 05:01 0.0 K/mm3 04/01/19 05:01 Blast Cells # 0.0 K/mm3 04/01/19 05:01 WBC Morphology Not Reportable 04/01/19 05:01 Hypersegmented Neuts Not Reportable 04/01/19 05:01 Hyposegmented Neuts Not Reportable 04/01/19 05:01 Hypogranular Neuts Not Reportable 04/01/19 05:01 Not Reportable 04/01/19 05:01 Not Reportable 04/01/19 05:01 Not Reportable 04/01/19 05:01 Not Reportable 04/01/19 05:01 Not Reportable 04/01/19 05:01 Not Reportable 04/01/19 05:01 Not Reportable 04/01/19 05:01 Not Reportable 04/01/19 05:01 Plt Clumps, EDTA Not Reportable 04/01/19 05:01 Not Reportable 04/01/19 05:01 Not Reportable 04/01/19 05:01 Not Reportable 04/01/19 05:01 Plt Morphology Comment Not Reportable 04/01/19 05:01 RBC Morphology Normal 04/01/19 05:01 Dimorphic RBCs Not Reportable 04/01/19 05:01 Not Reportable 04/01/19 05:01 Not Reportable 04/01/19 05:01 Not Reportable 04/01/19 05:01 Not Reportable 04/01/19 05:01 Not Reportable 04/01/19 05:01 Not Reportable 04/01/19 05:01 Not Reportable 04/01/19 05:01 Not Reportable 04/01/19 05:01 Not Reportable 04/01/19 05:01 Not Reportable 04/01/19 05:01 Not Reportable 04/01/19 05:01 Not Reportable 04/01/19 05:01 Not Reportable 04/01/19 05:01 Not Reportable 04/01/19 05:01 Not Reportable 04/01/19 05:01 Not Reportable 04/01/19 05:01 Not Reportable 04/01/19 05:01 Not Reportable 04/01/19 05:01 Not Reportable 04/01/19 05:01 Acanthocytes (Spur) Not Reportable 04/01/19 05:01 Rouleaux Not Reportable 04/01/19 05:01 Not Reportable 04/01/19 05:01 Not Reportable 04/01/19 05:01 Not Reportable 04/01/19 05:01 Not Reportable 04/01/19 05:01 Hem Pathologist Commnt No 04/01/19 05:01 PT 13.9 Sec. (12.2-14.9) 04/01/19 17:14 INR 1.10 (0.87-1.13) 04/01/19 17:14 APTT 74.5 Sec. (24.2-36.6) H* 03/29/19 19:20 313 mg/dl (211-480) 04/01/19 17:14 4526.86 ng/mlDDU (0-234) H 04/06/19 00:06 Heparin Anti-Xa, Unfract Negative (Negative) 03/31/19 15:00 POC ABG pH 7.374 (7.35-7.45) 04/04/19 03:46 ABG pH 7.396 pH Units (7.350-7.450) 04/03/19 05:35 POC ABG pCO2 36.2 (35-45) 04/04/19 03:46 ABG pCO2 32.2 mm Hg 04/03/19 05:35 POC ABG pO2 96 (80-105) 04/04/19 03:46 ABG pO2 97.7 mm Hg (80.0-90.0) H 04/03/19 05:35 POC ABG HCO3 21.2 (22-26 mml/L) 04/04/19 03:46 ABG HCO3 19.3 mmol/L (20.0-26.0) L 04/03/19 05:35 POC ABG Total CO2 22 (23-27mmol/L) 04/04/19 03:46 POC ABG O2 Sat 97 04/04/19 03:46 ABG O2 Saturation 97.6 % (95.0-99.0) 04/03/19 05:35 ABG O2 Content 10.9 (0.0-44) 04/03/19 05:35 POC ABG Base Excess -4 ((-2) - (+3)mmol/L) 04/04/19 03:46 ABG Base Excess -5.0 mmol/L (-2.0-3.0) L 04/03/19 05:35 ABG Hemoglobin 8.0 gm/dl (12.0-16.0) L 04/03/19 05:35 ABG Carboxyhemoglobin 2.1 % (0.0-5.0) 04/03/19 05:35 ABG Methemoglobin 0.5 % (0.0-1.5) 04/03/19 05:35 VBG pH 6.800 (7.320-7.420) L* 03/29/19 19:47 95.1 % (95.0-99.0) 04/03/19 05:35 25 % 04/04/19 03:46 Sodium 143 mmol/L (137-145) 04/07/19 04:30 Potassium 4.3 mmol/L (3.6-5.0) 04/07/19 04:30 Chloride 106.0 mmol/L (98-107) 04/07/19 04:30 Carbon Dioxide 27 mmol/L (22-30) 04/07/19 04:30 14 mmol/L 04/07/19 04:30 BUN 10 mg/dL (7-17) 04/07/19 04:30 0.2 mg/dL (0.7-1.2) L 04/07/19 04:30 Estimated GFR > 60 ml/min 04/07/19 04:30 50 % 04/07/19 04:30 Glucose 208 mg/dL (65-100) H 04/07/19 04:30 POC Glucose 176 (70-105) H 04/07/19 08:27 Lactic Acid 3.30 mmol/L (0.7-2.0) H* 03/31/19 07:50 Calcium 7.7 mg/dL (8.4-10.2) L 04/07/19 04:30 Phosphorus 2.20 mg/dL (2.5-4.5) L 04/03/19 03:40 Magnesium 2.60 mg/dL (1.7-2.3) H 03/30/19 05:26 Iron 26 ug/dL (37-170) L 03/31/19 08:20 TIBC 193 mcg/dL (250-450) L 03/31/19 08:20 0.60 mg/dL (0.1-1.2) 04/03/19 03:40 0.2 mg/dL (0-0.2) 04/02/19 07:48 0.5 mg/dL 04/02/19 07:48 AST 594 units/L (5-40) H 04/03/19 03:40 ALT 861 units/L (7-56) H 04/03/19 03:40 299 units/L (35-129) H 04/03/19 03:40 2465 units/L (30-135) H 03/30/19 05:26 CK-MB (CK-2) 52.7 ng/mL (0.0-4.0) H 03/30/19 05:26 CK-MB (CK-2) Rel Index 2.1 (0-4) 03/30/19 05:26 < 0.010 ng/mL (0.00-0.029) 04/06/19 05:20 2.40 mg/dL (0.00-1.30) H 03/30/19 12:57 4.4 g/dL (6.3-8.2) L 04/03/19 03:40 2.1 g/dL (3.9-5) L 04/03/19 03:40 0.9 % 04/03/19 03:40 See scanned result 03/31/19 15:00 Vitamin B12 > 2000 pg/mL (211-911) H 03/31/19 08:20 > 20 ng/mL (7.3-26.0) 03/31/19 08:20 HCG, Qual Negative (Negative) 03/29/19 19:20 Yellow (Yellow) 03/29/19 23:10 Slightly-cloudy (Clear) 03/29/19 23:10 6.0 (5.0-7.0) 03/29/19 23:10 Ur Specific [place] 1.021 (1.003-1.030) 03/29/19 23:10 100 mg/dl mg/dL (Negative) 03/29/19 23:10 >=500 mg/dL (Negative) 03/29/19 23:10 20 mg/dL (Negative) 03/29/19 23:10 Lg (Negative) 03/29/19 23:10 Neg (Negative) 03/29/19 23:10 Neg (Negative) 03/29/19 23:10 < 2.0 mg/dL (<2.0) 03/29/19 23:10 Ur Leukocyte Esterase Neg (Negative) 03/29/19 23:10 1.0 /HPF (0.0-6.0) 03/29/19 23:10 1.0 /HPF (0.0-6.0) 03/29/19 23:10 Few /HPF 03/29/19 23:10 Salicylates 0.8 mg/dL (2.8-20.0) L 03/30/19 Unknown Presumptive negative 03/29/19 23:10 Presumptive negative 03/29/19 23:10 Acetaminophen < 5.0 ug/mL (10.0-30.0) L 03/30/19 Unknown Ur Barbiturates Screen Presumptive negative 03/29/19 23:10 Ur Phencyclidine Scrn Presumptive negative 03/29/19 23:10 Ur Amphetamines Screen Presumptive negative 03/29/19 23:10 U Benzodiazepines Scrn Presumptive negative 03/29/19 23:10 Presumptive negative 03/29/19 23:10 U Marijuana (THC) Screen Presumptive negative 03/29/19 23:10 Disclamer 03/29/19 23:10 Heparin-induced Plt Ab Negative (Negative) 03/31/19 15:00 UF Heparin High Dose 0 % Release 03/31/19 15:00 FABIAN UFH Low Dose 0.1 0 % Release 03/31/19 15:00 FABIAN UFH Low Dose 0.5 0 % Release 03/31/19 15:00 Hepatitis A IgM Ab Non-reactive (NonReactive) 03/30/19 Unknown Hep Bs Antigen Non-reactive (Negative) 03/30/19 Unknown Hep B Core IgM Ab Non-reactive (NonReactive) 03/30/19 Unknown Non-reactive (NonReactive) 03/30/19 Unknown Flexitest 1 H 03/30/19 14:00 Blood Type O POSITIVE 03/30/19 03:30 Antibody Screen Negative 03/30/19 03:30 Crossmatch See Detail 03/30/19 03:30 Active Medications - Current Medications Current Medications: Generic Name Dose Route Start Last Admin Trade Name Freq PRN Reason Stop Dose Admin Acetaminophen 650 mg 03/29/19 23:34 04/01/19 23:38 Tylenol PO 650 mg Q4H PRN Administration Pain MILD(1-3)/Fever >100.5/WARE Lipase/Protease/Amylase 1 each 04/02/19 11:[address] 10,500 Unit FEEDTUBE PRN PRN For Clogged Feeding Tube Dextrose 0 ml 03/29/19 20:33 03/31/19 02:15 D50w (25gm) Syringe IV 10 ml PRN PRN Administration Hypoglycemia Enoxaparin Sodium 40 mg 04/05/19 22:00 04/06/19 22:08 Lovenox SUB-Q 40 mg QDAY@2200 ZAMZAM Administration Famotidine 20 mg 04/02/19 10:00 04/06/19 22:08 Pepcid PO 20 mg BID ZAMZAM Administration Fentanyl 50 mcg 04/05/19 11:00 04/07/19 03:34 Sublimaze IV 50 mcg Q2H PRN Administration Pain , Severe (7-10)/AGITATION Hydrophilic Ointment 1 applic 03/30/19 11:24 Vaseline Lip Therapy TP Q2HR PRN Dry Lips Norepinephrine 4 mg in 250 mls @ 7.5 mls/hr 03/29/19 21:00 04/01/19 19:00 Levophed Drip 4 Mg/Ns 250 Ml IV 0 mcg/min TITR ZAMZAM 0 mls/hr Titration Protocol 2 MCG/MIN Vasopressin 20 unit/ Sodium 101 mls @ 9.09 mls/hr 03/29/19 23:45 04/02/19 07:45 Chloride IV 0 units/min TITR ZAMZAM 0 mls/hr Titration Protocol 0.03 UNITS/MIN Phenylephrine HCl 100 mg/ 100 mls @ 3 mls/hr 03/30/19 01:15 03/30/19 15:15 Sodium Chloride IV 0 mcg/min TITR ZAMZAM 0 mls/hr Titration Protocol 50 MCG/MIN Cefepime HCl 2 gm in 100 mls @ 200 mls/hr 04/07/19 10:00 Maxipime/Ns 2 Gm/100 Ml IV Q8H ZAMZAM Metronidazole 500 mg in 100 mls @ 100 mls/hr 04/07/19 14:00 Flagyl 500 Mg/100 Ml IV Q8HR [facility] Insulin Glargine 10 units 04/05/19 22:00 04/06/19 22:08 Lantus SUB-Q 10 units QHS ZAMZAM Administration Insulin Human Regular 0 units 04/01/19 19:00 04/07/19 06:23 Humulin R SUB-Q 3 units Q4H ZAMZAM Administration Protocol Levetiracetam 500 mg 04/03/19 10:00 04/06/19 22:08 Keppra PO 500 mg BID ZAMZAM Administration Multi-Ingred Cream/Lotion/Oil/Oint 1 applic 03/30/19 11:24 04/06/19 11:39 Artificial Tears Ophth Oint OU 1 applic Q4HR PRN Administration Dry Eye(s) Ondansetron HCl 4 mg 03/29/19 23:34 Zofran IV Q8H PRN Nausea And Vomiting Simple Syrup 15 ml 04/02/19 11:44 Simple Syrup FEEDTUBE PRN PRN Hypoglycemia Simple Syrup 30 ml 04/02/19 11:44 Simple Syrup FEEDTUBE PRN PRN Hypoglycemia Sodium Bicarbonate 325 mg 04/02/19 11:44 Sodium Bicarbonate FEEDTUBE PRN PRN For Clogged Feeding Tube Sodium Chloride 10 ml 03/30/19 10:00 04/06/19 22:35 Sodium Chloride Flush Syringe 10 Ml IV 10 ml BID ZAMZAM Administration Sodium Chloride 10 ml 03/29/19 23:34 Sodium Chloride Flush Syringe 10 Ml IV PRN PRN LINE FLUSH Nutrition/Malnutrition Assess - Dietary Evaluation Nutrition/Malnutrition Findings: Nutrition Notes Start: 03/30/19 13:14 Freq: Status: Active Protocol: Document 04/04/19 10:13 LM (Rec: 04/04/19 10:17 LM [id number]) Nutrition Notes Initial or Follow up Reassessment Current Diagnosis Diabetes,Sepsis,Respiratory Failure Other Pertinent Diagnosis s/p cardiac arrest, DKA, ARF, Shock liver Current Diet NPO Labs/Tests POC glu 131 Pertinent Medications Reviewed Height 5 ft Weight 52.2 kg [place] Body Weight (kg) 45.45 BMI 22.4 Weight change and time frame Wt change possibly due to edema in both arms. Subjective/Other Information Glucerna running at 50 ml/hr. Pt on vent and tolerating TF. Burn Absent Trauma Absent #1 Nutrition Diagnosis Inadequate oral intake Diagnosis Progress(for reassessment Continues documentation) Is patient on ventilator? Yes Is Patient Ambulatory and/or Out of Bed No REE-([facility]-confined to bed) 1392.552 Calculation Used for Recommendations [facility] Additional Notes Pro needs 1.2-2g/k-104g/ day Fluid needs 1ml/kcal Nutrition Intervention Change Diet Order: Continue TF Nutrition Support: Glucerna 1.2 at 50ml/hr with 80ml water flush q4h. Kcal 1,440 Protein (gm) 72 Fluid (mL) 966 Goal #1 Meet at least 75% of energy and protein needs Follow-Up By: 04/11/19 Additional Comments F/U for TF tolerance/rate - Attestation Statement I have reviewed and agreed w/ Malnutrition eval & tx plan: Yes
[2019-04-07] MEDS: KEPPRA PO SCH ×2 (10:22→22:07)
[2019-04-07] MEDS: PEPCID PO SCH ×2 (10:22→22:08)
[2019-04-07] MEDS: CEFEPIME/NS 2 GM/100 ML 2 GM/100 ML BAG IV SCH ×2 (10:22→18:36)
--- NOTE | 2019-04-07 10:22 | Event Note ---
Date: 04/07/19 Please see cardiology consult from yesterday - we have signed off. Please call with questions.
[2019-04-07] MEDS: SODIUM CHLORIDE FLUSH SYRINGE 10 ML IV SCH ×2 (10:29→22:09)
--- NOTE | 2019-04-07 13:15 | Progress Note ---
Subjective Date of service: 04/07/19 Principal diagnosis: Ac Hypoxemic Resp Failure; DKA; Severe sepsis with shock; ANGELICA Interval history: see the notes on thios patient concur with mother to get DNR based on prior will of patient and confirmed also do not want trach long hx of diabetic ketoacid odsis and seizures Objective - Vital Sign Vital Signs - 12hr 04/07/19 04/07/19 04/07/19 02:00 03:00 03:28 Temperature 100 F H Pulse Rate 119 H 132 H Respiratory 18 23 Rate Blood Pressure 107/57 129/84 O2 Sat by Pulse 97 96 Oximetry 04/07/19 04/07/19 04/07/19 04:00 05:00 05:05 Temperature Pulse Rate 118 H 128 H 126 H Respiratory 14 23 Rate Blood Pressure 105/60 122/79 122/79 O2 Sat by Pulse 97 99 Oximetry 04/07/19 04/07/19 04/07/19 06:00 07:00 07:37 Temperature Pulse Rate 128 H 114 H 140 H Respiratory 18 14 20 Rate Blood Pressure 120/83 104/64 104/64 O2 Sat by Pulse 97 97 99 Oximetry 04/07/19 04/07/19 04/07/19 08:00 09:00 10:00 Temperature 98.2 F Pulse Rate 109 H 131 H 134 H Respiratory 18 24 27 H Rate Blood Pressure 108/63 123/74 124/78 O2 Sat by Pulse 97 95 96 Oximetry 04/07/19 04/07/19 11:00 12:00 Temperature 97.9 F Pulse Rate 133 H 128 H Respiratory 29 H 32 H Rate Blood Pressure 124/79 112/80 O2 Sat by Pulse 95 98 Oximetry - Laboratory Findings CBC and BMP: 04/07/19 04:30 04/07/19 04:30 Abnormal Lab Findings: Abnormal Labs 03/29/19 03/29/19 03/29/19 19:11 19:20 19:20 WBC 26.7 H RBC 2.52 L Hgb 8.1 L Hct MCV 148 H MCH MCHC 22 L RDW 18.5 H Plt Count [place] % (Auto) Lymph # Seg Neuts % (Manual) 82.0 H Lymphocytes % (Manual) 7.0 L Nucleated RBC % Seg Neutrophils # Man 21.9 H Lymphocytes # (Manual) Monocytes # (Manual) 1.9 H PT 21.8 H INR 1.95 H APTT 74.5 H* D-Dimer POC ABG pH ABG pH POC ABG pO2 ABG pO2 ABG HCO3 ABG O2 Saturation ABG Base Excess ABG Hemoglobin VBG pH Oxyhemoglobin Sodium Potassium Chloride Carbon Dioxide BUN Creatinine Glucose POC Glucose > 500 H Lactic Acid Calcium Phosphorus Magnesium Iron TIBC Direct Bilirubin AST ALT Alkaline Phosphatase Total Creatine Kinase CK-MB (CK-2) C-Reactive Protein Total Protein Albumin Vitamin B12 Salicylates Acetaminophen Miscellaneous Test Crossmatch 03/29/19 03/29/19 03/29/19 19:20 19:47 20:59 WBC RBC Hgb Hct MCV MCH MCHC RDW Plt Count [place] % (Auto) Lymph # Seg Neuts % (Manual) Lymphocytes % (Manual) Nucleated RBC % Seg Neutrophils # Man Lymphocytes # (Manual) Monocytes # (Manual) PT INR APTT D-Dimer POC ABG pH 6.892 L ABG pH POC ABG pO2 236 H ABG pO2 ABG HCO3 ABG O2 Saturation ABG Base Excess ABG Hemoglobin VBG pH 6.800 L* Oxyhemoglobin Sodium 118 L* Potassium 9.0 H* Chloride 64.5 L Carbon Dioxide 7 L* BUN 53 H Creatinine 2.1 H Glucose 2196 H* POC Glucose Lactic Acid Calcium 12.4 H* Phosphorus Magnesium Iron TIBC Direct Bilirubin AST 3900 H ALT 1034 H Alkaline Phosphatase 316 H Total Creatine Kinase CK-MB (CK-2) C-Reactive Protein Total Protein 5.1 L Albumin 2.8 L Vitamin B12 Salicylates Acetaminophen Miscellaneous Test Crossmatch 03/29/19 03/29/19 03/29/19 22:45 22:45 22:45 WBC RBC Hgb Hct MCV MCH MCHC RDW Plt Count [place] % (Auto) Lymph # Seg Neuts % (Manual) Lymphocytes % (Manual) Nucleated RBC % Seg Neutrophils # Man Lymphocytes # (Manual) Monocytes # (Manual) PT INR APTT D-Dimer POC ABG pH ABG pH POC ABG pO2 ABG pO2 ABG HCO3 ABG O2 Saturation ABG Base Excess ABG Hemoglobin VBG pH Oxyhemoglobin Sodium 132 L D Potassium 7.0 H* Chloride 84.3 L Carbon Dioxide 3 L* BUN 48 H Creatinine 1.8 H Glucose 1779 H* POC Glucose Lactic Acid Calcium Phosphorus 21.70 H Magnesium 4.70 H Iron TIBC Direct Bilirubin AST ALT Alkaline Phosphatase Total Creatine Kinase 363 H CK-MB (CK-2) C-Reactive Protein Total Protein Albumin Vitamin B12 Salicylates Acetaminophen Miscellaneous Test Crossmatch 03/29/19 03/29/19 03/30/19 Unknown Unknown 00:11 WBC RBC Hgb Hct MCV MCH MCHC RDW Plt Count [place] % (Auto) Lymph # Seg Neuts % (Manual) Lymphocytes % (Manual) Nucleated RBC % Seg Neutrophils # Man Lymphocytes # (Manual) Monocytes # (Manual) PT INR APTT D-Dimer POC ABG pH ABG pH POC ABG pO2 ABG pO2 ABG HCO3 ABG O2 Saturation ABG Base Excess ABG Hemoglobin VBG pH Oxyhemoglobin Sodium 122 L Potassium 7.9 H* 6.4 H* Chloride 75.3 L 89.7 L Carbon Dioxide 3 L* 12 L D BUN 52 H 46 H Creatinine 2.0 H 1.7 H Glucose 2043 H* 1591 H* POC Glucose Lactic Acid Calcium 7.8 L Phosphorus 19.30 H Magnesium 3.90 H Iron TIBC Direct Bilirubin AST ALT Alkaline Phosphatase Total Creatine Kinase CK-MB (CK-2) C-Reactive Protein Total Protein Albumin Vitamin B12 Salicylates Acetaminophen Miscellaneous Test Crossmatch 03/30/19 03/30/19 03/30/19 00:11 02:14 02:14 WBC RBC Hgb Hct MCV MCH MCHC RDW Plt Count [place] % (Auto) Lymph # Seg Neuts % (Manual) Lymphocytes % (Manual) Nucleated RBC % Seg Neutrophils # Man Lymphocytes # (Manual) Monocytes # (Manual) PT INR APTT D-Dimer POC ABG pH ABG pH POC ABG pO2 ABG pO2 ABG HCO3 ABG O2 Saturation ABG Base Excess ABG Hemoglobin VBG pH Oxyhemoglobin Sodium Potassium Chloride Carbon Dioxide 9 L* BUN 45 H Creatinine 1.7 H Glucose 1155 H* POC Glucose Lactic Acid Calcium 7.9 L Phosphorus 10.90 H D 5.30 H D Magnesium 3.10 H 2.90 H Iron TIBC Direct Bilirubin AST ALT Alkaline Phosphatase Total Creatine Kinase CK-MB (CK-2) C-Reactive Protein Total Protein Albumin Vitamin B12 Salicylates Acetaminophen Miscellaneous Test Crossmatch 03/30/19 03/30/19 03/30/19 03:15 03:30 04:23 WBC 18.0 H RBC 2.31 L Hgb 7.3 L Hct 23.8 L D MCV 103 H MCH MCHC RDW 17.1 H Plt Count [place] % (Auto) Lymph # Seg Neuts % (Manual) 79.0 H Lymphocytes % (Manual) Nucleated RBC % Seg Neutrophils # Man 14.2 H Lymphocytes # (Manual) Monocytes # (Manual) PT INR APTT D-Dimer POC ABG pH 7.251 L ABG pH POC ABG pO2 156 H ABG pO2 ABG HCO3 ABG O2 Saturation ABG Base Excess ABG Hemoglobin VBG pH Oxyhemoglobin Sodium Potassium Chloride Carbon Dioxide BUN Creatinine Glucose POC Glucose Lactic Acid Calcium Phosphorus Magnesium Iron TIBC Direct Bilirubin AST ALT Alkaline Phosphatase Total Creatine Kinase CK-MB (CK-2) C-Reactive Protein Total Protein Albumin Vitamin B12 Salicylates Acetaminophen Miscellaneous Test Crossmatch See Detail 03/30/19 03/30/19 03/30/19 05:26 05:26 10:38 WBC RBC Hgb Hct MCV MCH MCHC RDW Plt Count [place] % (Auto) Lymph # Seg Neuts % (Manual) Lymphocytes % (Manual) Nucleated RBC % Seg Neutrophils # Man Lymphocytes # (Manual) Monocytes # (Manual) PT INR APTT D-Dimer POC ABG pH ABG pH POC ABG pO2 ABG pO2 ABG HCO3 ABG O2 Saturation ABG Base Excess ABG Hemoglobin VBG pH Oxyhemoglobin Sodium 158 H D Potassium 3.5 L Chloride 109.3 H Carbon Dioxide 19 L D BUN 40 H Creatinine 1.5 H Glucose 760 H* POC Glucose 380 H Lactic Acid Calcium 7.3 L Phosphorus Magnesium 2.60 H Iron TIBC Direct Bilirubin AST 98438 H ALT 2156 H Alkaline Phosphatase 271 H Total Creatine Kinase 2465 H CK-MB (CK-2) 52.7 H C-Reactive Protein Total Protein 4.5 L Albumin 2.4 L Vitamin B12 Salicylates Acetaminophen Miscellaneous Test Crossmatch 03/30/19 03/30/19 03/30/19 11:08 12:25 12:57 WBC RBC Hgb Hct MCV MCH MCHC RDW Plt Count [place] % (Auto) Lymph # Seg Neuts % (Manual) Lymphocytes % (Manual) Nucleated RBC % Seg Neutrophils # Man Lymphocytes # (Manual) Monocytes # (Manual) PT INR APTT D-Dimer POC ABG pH ABG pH POC ABG pO2 ABG pO2 ABG HCO3 ABG O2 Saturation ABG Base Excess ABG Hemoglobin VBG pH Oxyhemoglobin Sodium 156 H Potassium 3.2 L Chloride 116.4 H Carbon Dioxide 21 L BUN 37 H Creatinine Glucose 162 H POC Glucose 263 H 196 H Lactic Acid Calcium 7.2 L Phosphorus Magnesium Iron TIBC Direct Bilirubin AST ALT Alkaline Phosphatase Total Creatine Kinase CK-MB (CK-2) C-Reactive Protein Total Protein Albumin Vitamin B12 Salicylates Acetaminophen Miscellaneous Test Crossmatch 03/30/19 03/30/19 03/30/19 12:57 12:57 12:57 WBC RBC Hgb Hct MCV MCH MCHC RDW Plt Count [place] % (Auto) Lymph # Seg Neuts % (Manual) Lymphocytes % (Manual) Nucleated RBC % Seg Neutrophils # Man Lymphocytes # (Manual) Monocytes # (Manual) PT 21.0 H INR 1.86 H APTT D-Dimer POC ABG pH ABG pH POC ABG pO2 ABG pO2 ABG HCO3 ABG O2 Saturation ABG Base Excess ABG Hemoglobin VBG pH Oxyhemoglobin Sodium Potassium Chloride Carbon Dioxide BUN Creatinine Glucose POC Glucose Lactic Acid 9.00 H* Calcium Phosphorus Magnesium Iron TIBC Direct Bilirubin AST ALT Alkaline Phosphatase Total Creatine Kinase CK-MB (CK-2) C-Reactive Protein 2.40 H Total Protein Albumin Vitamin B12 Salicylates Acetaminophen Miscellaneous Test Crossmatch 03/30/19 03/30/19 03/30/19 13:23 14:00 14:47 WBC RBC Hgb Hct MCV MCH MCHC RDW Plt Count [place] % (Auto) Lymph # Seg Neuts % (Manual) Lymphocytes % (Manual) Nucleated RBC % Seg Neutrophils # Man Lymphocytes # (Manual) Monocytes # (Manual) PT INR APTT D-Dimer POC ABG pH ABG pH POC ABG pO2 ABG pO2 ABG HCO3 ABG O2 Saturation ABG Base Excess ABG Hemoglobin VBG pH Oxyhemoglobin Sodium Potassium Chloride Carbon Dioxide BUN Creatinine Glucose POC Glucose 176 H 245 H Lactic Acid Calcium Phosphorus Magnesium Iron TIBC Direct Bilirubin AST ALT Alkaline Phosphatase Total Creatine Kinase CK-MB (CK-2) C-Reactive Protein Total Protein Albumin Vitamin B12 Salicylates Acetaminophen Miscellaneous Test Flexitest 1 H Crossmatch 03/30/19 03/30/19 03/30/19 16:11 17:11 17:46 WBC RBC Hgb Hct MCV MCH MCHC RDW Plt Count [place] % (Auto) Lymph # Seg Neuts % (Manual) Lymphocytes % (Manual) Nucleated RBC % Seg Neutrophils # Man Lymphocytes # (Manual) Monocytes # (Manual) PT INR APTT D-Dimer POC ABG pH ABG pH POC ABG pO2 ABG pO2 ABG HCO3 ABG O2 Saturation ABG Base Excess ABG Hemoglobin VBG pH Oxyhemoglobin Sodium Potassium Chloride Carbon Dioxide BUN Creatinine Glucose POC Glucose 181 H 167 H 125 H Lactic Acid Calcium Phosphorus Magnesium Iron TIBC Direct Bilirubin AST ALT Alkaline Phosphatase Total Creatine Kinase CK-MB (CK-2) C-Reactive Protein Total Protein Albumin Vitamin B12 Salicylates Acetaminophen Miscellaneous Test Crossmatch 03/30/19 03/30/19 03/30/19 18:59 21:31 22:19 WBC RBC Hgb Hct MCV MCH MCHC RDW Plt Count [place] % (Auto) Lymph # Seg Neuts % (Manual) Lymphocytes % (Manual) Nucleated RBC % Seg Neutrophils # Man Lymphocytes # (Manual) Monocytes # (Manual) PT INR APTT D-Dimer POC ABG pH ABG pH POC ABG pO2 ABG pO2 ABG HCO3 ABG O2 Saturation ABG Base Excess ABG Hemoglobin VBG pH Oxyhemoglobin Sodium Potassium Chloride Carbon Dioxide BUN Creatinine Glucose POC Glucose 140 H 166 H 115 H Lactic Acid Calcium Phosphorus Magnesium Iron TIBC Direct Bilirubin AST ALT Alkaline Phosphatase Total Creatine Kinase CK-MB (CK-2) C-Reactive Protein Total Protein Albumin Vitamin B12 Salicylates Acetaminophen Miscellaneous Test Crossmatch 03/30/19 03/30/19 03/30/19 23:13 Unknown Unknown WBC RBC Hgb Hct MCV MCH MCHC RDW Plt Count [place] % (Auto) Lymph # Seg Neuts % (Manual) Lymphocytes % (Manual) Nucleated RBC % Seg Neutrophils # Man Lymphocytes # (Manual) Monocytes # (Manual) PT INR APTT D-Dimer POC ABG pH ABG pH POC ABG pO2 ABG pO2 47.8 L ABG HCO3 18.8 L ABG O2 Saturation 83.8 L ABG Base Excess -5.4 L ABG Hemoglobin 6.8 L VBG pH Oxyhemoglobin 81.8 L Sodium 157 H Potassium 3.3 L Chloride 117.9 H Carbon Dioxide 20 L BUN 36 H Creatinine Glucose 150 H POC Glucose 112 H Lactic Acid Calcium 7.2 L Phosphorus Magnesium Iron TIBC Direct Bilirubin AST ALT Alkaline Phosphatase Total Creatine Kinase CK-MB (CK-2) C-Reactive Protein Total Protein Albumin Vitamin B12 Salicylates Acetaminophen Miscellaneous Test Crossmatch 03/30/19 03/30/19 03/31/19 Unknown Unknown 00:03 WBC RBC Hgb Hct MCV MCH MCHC RDW Plt Count [place] % (Auto) Lymph # Seg Neuts % (Manual) Lymphocytes % (Manual) Nucleated RBC % Seg Neutrophils # Man Lymphocytes # (Manual) Monocytes # (Manual) PT INR APTT D-Dimer POC ABG pH ABG pH POC ABG pO2 ABG pO2 ABG HCO3 ABG O2 Saturation ABG Base Excess ABG Hemoglobin VBG pH Oxyhemoglobin Sodium Potassium Chloride Carbon Dioxide BUN Creatinine Glucose POC Glucose 188 H Lactic Acid Calcium Phosphorus Magnesium Iron TIBC Direct Bilirubin AST ALT Alkaline Phosphatase Total Creatine Kinase CK-MB (CK-2) C-Reactive Protein Total Protein Albumin Vitamin B12 Salicylates 0.8 L Acetaminophen < 5.0 L Miscellaneous Test Crossmatch 03/31/19 03/31/19 03/31/19 01:18 03:07 03:50 WBC RBC Hgb Hct MCV MCH MCHC RDW Plt Count [place] % (Auto) Lymph # Seg Neuts % (Manual) Lymphocytes % (Manual) Nucleated RBC % Seg Neutrophils # Man Lymphocytes # (Manual) Monocytes # (Manual) PT INR APTT D-Dimer POC ABG pH ABG pH 7.525 H POC ABG pO2 ABG pO2 178.0 H ABG HCO3 19.5 L ABG O2 Saturation 99.2 H ABG Base Excess -3.1 L ABG Hemoglobin 5.8 L VBG pH Oxyhemoglobin Sodium Potassium Chloride Carbon Dioxide BUN Creatinine Glucose POC Glucose 114 H 107 H Lactic Acid Calcium Phosphorus Magnesium Iron TIBC Direct Bilirubin AST ALT Alkaline Phosphatase Total Creatine Kinase CK-MB (CK-2) C-Reactive Protein Total Protein Albumin Vitamin B12 Salicylates Acetaminophen Miscellaneous Test Crossmatch 03/31/19 03/31/19 03/31/19 03:51 03:51 04:05 WBC RBC 1.89 L Hgb 6.1 L Hct 18.2 L* MCV MCH MCHC RDW 17.7 H Plt Count 89 L [place] % (Auto) Lymph # Seg Neuts % (Manual) 86.0 H Lymphocytes % (Manual) 10.0 L Nucleated RBC % 1.0 H Seg Neutrophils # Man Lymphocytes # (Manual) 0.7 L Monocytes # (Manual) PT INR APTT D-Dimer POC ABG pH ABG pH POC ABG pO2 ABG pO2 ABG HCO3 ABG O2 Saturation ABG Base Excess ABG Hemoglobin VBG pH Oxyhemoglobin Sodium 151 H Potassium 3.2 L Chloride 119.4 H Carbon Dioxide 17 L BUN 35 H Creatinine Glucose 139 H POC Glucose 153 H Lactic Acid Calcium 7.1 L Phosphorus Magnesium Iron TIBC Direct Bilirubin AST ALT Alkaline Phosphatase Total Creatine Kinase CK-MB (CK-2) C-Reactive Protein Total Protein Albumin Vitamin B12 Salicylates Acetaminophen Miscellaneous Test Crossmatch 03/31/19 03/31/19 03/31/19 05:05 05:35 06:23 WBC RBC Hgb Hct MCV MCH MCHC RDW Plt Count [place] % (Auto) Lymph # Seg Neuts % (Manual) Lymphocytes % (Manual) Nucleated RBC % Seg Neutrophils # Man Lymphocytes # (Manual) Monocytes # (Manual) PT INR APTT D-Dimer POC ABG pH ABG pH POC ABG pO2 ABG pO2 ABG HCO3 ABG O2 Saturation ABG Base Excess ABG Hemoglobin VBG pH Oxyhemoglobin Sodium Potassium Chloride Carbon Dioxide BUN Creatinine Glucose POC Glucose 176 H 133 H Lactic Acid 3.20 H* Calcium Phosphorus Magnesium Iron TIBC Direct Bilirubin AST ALT Alkaline Phosphatase Total Creatine Kinase CK-MB (CK-2) C-Reactive Protein Total Protein Albumin Vitamin B12 Salicylates Acetaminophen Miscellaneous Test Crossmatch 03/31/19 03/31/19 03/31/19 07:50 07:51 08:20 WBC RBC Hgb Hct MCV MCH MCHC RDW Plt Count [place] % (Auto) Lymph # Seg Neuts % (Manual) Lymphocytes % (Manual) Nucleated RBC % Seg Neutrophils # Man Lymphocytes # (Manual) Monocytes # (Manual) PT INR APTT D-Dimer POC ABG pH ABG pH POC ABG pO2 ABG pO2 ABG HCO3 ABG O2 Saturation ABG Base Excess ABG Hemoglobin VBG pH Oxyhemoglobin Sodium Potassium Chloride Carbon Dioxide BUN Creatinine Glucose POC Glucose 135 H Lactic Acid 3.30 H* Calcium Phosphorus Magnesium Iron 26 L TIBC 193 L Direct Bilirubin AST ALT Alkaline Phosphatase Total Creatine Kinase CK-MB (CK-2) C-Reactive Protein Total Protein Albumin Vitamin B12 Salicylates Acetaminophen Miscellaneous Test Crossmatch 03/31/19 03/31/19 03/31/19 08:20 08:20 09:06 WBC RBC Hgb Hct MCV MCH MCHC RDW Plt Count [place] % (Auto) Lymph # Seg Neuts % (Manual) Lymphocytes % (Manual) Nucleated RBC % Seg Neutrophils # Man Lymphocytes # (Manual) Monocytes # (Manual) PT INR APTT D-Dimer POC ABG pH ABG pH POC ABG pO2 ABG pO2 ABG HCO3 ABG O2 Saturation ABG Base Excess ABG Hemoglobin VBG pH Oxyhemoglobin Sodium 153 H Potassium 3.0 L Chloride 118.9 H Carbon Dioxide 18 L BUN 37 H Creatinine Glucose 132 H POC Glucose 145 H Lactic Acid Calcium 7.1 L Phosphorus Magnesium Iron TIBC Direct Bilirubin AST ALT Alkaline Phosphatase Total Creatine Kinase CK-MB (CK-2) C-Reactive Protein Total Protein Albumin Vitamin B12 > 2000 H Salicylates Acetaminophen Miscellaneous Test Crossmatch 03/31/19 03/31/19 03/31/19 10:47 11:49 13:04 WBC RBC Hgb Hct MCV MCH MCHC RDW Plt Count [place] % (Auto) Lymph # Seg Neuts % (Manual) Lymphocytes % (Manual) Nucleated RBC % Seg Neutrophils # Man Lymphocytes # (Manual) Monocytes # (Manual) PT INR APTT D-Dimer POC ABG pH ABG pH POC ABG pO2 ABG pO2 ABG HCO3 ABG O2 Saturation ABG Base Excess ABG Hemoglobin VBG pH Oxyhemoglobin Sodium Potassium Chloride Carbon Dioxide BUN Creatinine Glucose POC Glucose 153 H 174 H 214 H Lactic Acid Calcium Phosphorus Magnesium Iron TIBC Direct Bilirubin AST ALT Alkaline Phosphatase Total Creatine Kinase CK-MB (CK-2) C-Reactive Protein Total Protein Albumin Vitamin B12 Salicylates Acetaminophen Miscellaneous Test Crossmatch 03/31/19 03/31/19 03/31/19 13:42 15:08 16:08 WBC RBC Hgb Hct MCV MCH MCHC RDW Plt Count [place] % (Auto) Lymph # Seg Neuts % (Manual) Lymphocytes % (Manual) Nucleated RBC % Seg Neutrophils # Man Lymphocytes # (Manual) Monocytes # (Manual) PT INR APTT D-Dimer POC ABG pH ABG pH POC ABG pO2 ABG pO2 ABG HCO3 ABG O2 Saturation ABG Base Excess ABG Hemoglobin VBG pH Oxyhemoglobin Sodium Potassium Chloride Carbon Dioxide BUN Creatinine Glucose POC Glucose 186 H 136 H 150 H Lactic Acid Calcium Phosphorus Magnesium Iron TIBC Direct Bilirubin AST ALT Alkaline Phosphatase Total Creatine Kinase CK-MB (CK-2) C-Reactive Protein Total Protein Albumin Vitamin B12 Salicylates Acetaminophen Miscellaneous Test Crossmatch 03/31/19 03/31/19 03/31/19 17:11 17:30 17:30 WBC RBC Hgb 7.7 L Hct 23.0 L MCV MCH MCHC RDW Plt Count [place] % (Auto) Lymph # Seg Neuts % (Manual) Lymphocytes % (Manual) Nucleated RBC % Seg Neutrophils # Man Lymphocytes # (Manual) Monocytes # (Manual) PT INR APTT D-Dimer POC ABG pH ABG pH POC ABG pO2 ABG pO2 ABG HCO3 ABG O2 Saturation ABG Base Excess ABG Hemoglobin VBG pH Oxyhemoglobin Sodium 153 H Potassium 3.5 L Chloride 119.3 H Carbon Dioxide 20 L BUN 34 H Creatinine Glucose 162 H POC Glucose 140 H Lactic Acid Calcium 7.6 L Phosphorus Magnesium Iron TIBC Direct Bilirubin AST ALT Alkaline Phosphatase Total Creatine Kinase CK-MB (CK-2) C-Reactive Protein Total Protein Albumin Vitamin B12 Salicylates Acetaminophen Miscellaneous Test Crossmatch 03/31/19 03/31/19 03/31/19 17:59 18:58 20:28 WBC RBC Hgb Hct MCV MCH MCHC RDW Plt Count [place] % (Auto) Lymph # Seg Neuts % (Manual) Lymphocytes % (Manual) Nucleated RBC % Seg Neutrophils # Man Lymphocytes # (Manual) Monocytes # (Manual) PT INR APTT D-Dimer POC ABG pH ABG pH POC ABG pO2 ABG pO2 ABG HCO3 ABG O2 Saturation ABG Base Excess ABG Hemoglobin VBG pH Oxyhemoglobin Sodium Potassium Chloride Carbon Dioxide BUN Creatinine Glucose POC Glucose 156 H 152 H 138 H Lactic Acid Calcium Phosphorus Magnesium Iron TIBC Direct Bilirubin AST ALT Alkaline Phosphatase Total Creatine Kinase CK-MB (CK-2) C-Reactive Protein Total Protein Albumin Vitamin B12 Salicylates Acetaminophen Miscellaneous Test Crossmatch 03/31/19 03/31/19 03/31/19 21:09 22:15 23:10 WBC RBC Hgb Hct MCV MCH MCHC RDW Plt Count [place] % (Auto) Lymph # Seg Neuts % (Manual) Lymphocytes % (Manual) Nucleated RBC % Seg Neutrophils # Man Lymphocytes # (Manual) Monocytes # (Manual) PT INR APTT D-Dimer POC ABG pH ABG pH POC ABG pO2 ABG pO2 ABG HCO3 ABG O2 Saturation ABG Base Excess ABG Hemoglobin VBG pH Oxyhemoglobin Sodium Potassium Chloride Carbon Dioxide BUN Creatinine Glucose POC Glucose 136 H 137 H 148 H Lactic Acid Calcium Phosphorus Magnesium Iron TIBC Direct Bilirubin AST ALT Alkaline Phosphatase Total Creatine Kinase CK-MB (CK-2) C-Reactive Protein Total Protein Albumin Vitamin B12 Salicylates Acetaminophen Miscellaneous Test Crossmatch 04/01/19 04/01/19 04/01/19 00:05 01:17 02:11 WBC RBC Hgb Hct MCV MCH MCHC RDW Plt Count [place] % (Auto) Lymph # Seg Neuts % (Manual) Lymphocytes % (Manual) Nucleated RBC % Seg Neutrophils # Man Lymphocytes # (Manual) Monocytes # (Manual) PT INR APTT D-Dimer POC ABG pH ABG pH POC ABG pO2 ABG pO2 ABG HCO3 ABG O2 Saturation ABG Base Excess ABG Hemoglobin VBG pH Oxyhemoglobin Sodium Potassium Chloride Carbon Dioxide BUN Creatinine Glucose POC Glucose 143 H 151 H 155 H Lactic Acid Calcium Phosphorus Magnesium Iron TIBC Direct Bilirubin AST ALT Alkaline Phosphatase Total Creatine Kinase CK-MB (CK-2) C-Reactive Protein Total Protein Albumin Vitamin B12 Salicylates Acetaminophen Miscellaneous Test Crossmatch 04/01/19 04/01/19 04/01/19 03:12 04:03 04:16 WBC RBC Hgb Hct MCV MCH MCHC RDW Plt Count [place] % (Auto) Lymph # Seg Neuts % (Manual) Lymphocytes % (Manual) Nucleated RBC % Seg Neutrophils # Man Lymphocytes # (Manual) Monocytes # (Manual) PT INR APTT D-Dimer POC ABG pH ABG pH POC ABG pO2 ABG pO2 ABG HCO3 ABG O2 Saturation ABG Base Excess ABG Hemoglobin VBG pH Oxyhemoglobin Sodium Potassium Chloride Carbon Dioxide BUN Creatinine Glucose POC Glucose 140 H 143 H 142 H Lactic Acid Calcium Phosphorus Magnesium Iron TIBC Direct Bilirubin AST ALT Alkaline Phosphatase Total Creatine Kinase CK-MB (CK-2) C-Reactive Protein Total Protein Albumin Vitamin B12 Salicylates Acetaminophen Miscellaneous Test Crossmatch 04/01/19 04/01/19 04/01/19 05:01 05:01 05:08 WBC RBC 2.05 L Hgb 6.8 L Hct 20.5 L MCV 100 H MCH 33 H MCHC RDW 17.7 H Plt Count 53 L [place] % (Auto) Lymph # Seg Neuts % (Manual) 71.0 H Lymphocytes % (Manual) Nucleated RBC % Seg Neutrophils # Man Lymphocytes # (Manual) Monocytes # (Manual) PT INR APTT D-Dimer POC ABG pH ABG pH POC ABG pO2 ABG pO2 ABG HCO3 ABG O2 Saturation ABG Base Excess ABG Hemoglobin VBG pH Oxyhemoglobin Sodium Potassium Chloride Carbon Dioxide BUN Creatinine Glucose POC Glucose 119 H Lactic Acid Calcium Phosphorus Magnesium Iron TIBC Direct Bilirubin 0.3 H AST 4601 H ALT 1542 H Alkaline Phosphatase 185 H Total Creatine Kinase CK-MB (CK-2) C-Reactive Protein Total Protein 3.8 L Albumin 1.6 L Vitamin B12 Salicylates Acetaminophen Miscellaneous Test Crossmatch 04/01/19 04/01/19 04/01/19 05:23 06:37 08:15 WBC RBC Hgb Hct MCV MCH MCHC RDW Plt Count [place] % (Auto) Lymph # Seg Neuts % (Manual) Lymphocytes % (Manual) Nucleated RBC % Seg Neutrophils # Man Lymphocytes # (Manual) Monocytes # (Manual) PT INR APTT D-Dimer POC ABG pH ABG pH POC ABG pO2 ABG pO2 ABG HCO3 ABG O2 Saturation ABG Base Excess ABG Hemoglobin VBG pH Oxyhemoglobin Sodium Potassium Chloride Carbon Dioxide BUN Creatinine Glucose POC Glucose 115 H 124 H 138 H Lactic Acid Calcium Phosphorus Magnesium Iron TIBC Direct Bilirubin AST ALT Alkaline Phosphatase Total Creatine Kinase CK-MB (CK-2) C-Reactive Protein Total Protein Albumin Vitamin B12 Salicylates Acetaminophen Miscellaneous Test Crossmatch 04/01/19 04/01/19 04/01/19 09:50 10:10 10:31 WBC RBC Hgb 6.5 L Hct 19.2 L* MCV MCH MCHC RDW Plt Count [place] % (Auto) Lymph # Seg Neuts % (Manual) Lymphocytes % (Manual) Nucleated RBC % Seg Neutrophils # Man Lymphocytes # (Manual) Monocytes # (Manual) PT INR APTT D-Dimer POC ABG pH ABG pH POC ABG pO2 ABG pO2 ABG HCO3 ABG O2 Saturation ABG Base Excess ABG Hemoglobin VBG pH Oxyhemoglobin Sodium 149 H Potassium 3.5 L Chloride 119.9 H Carbon Dioxide 21 L BUN 33 H Creatinine 0.5 L Glucose 142 H POC Glucose 185 H Lactic Acid Calcium 7.3 L Phosphorus Magnesium Iron TIBC Direct Bilirubin AST 3686 H ALT 1440 H Alkaline Phosphatase 185 H Total Creatine Kinase CK-MB (CK-2) C-Reactive Protein Total Protein 3.7 L Albumin 1.8 L Vitamin B12 Salicylates Acetaminophen Miscellaneous Test Crossmatch 04/01/19 04/01/19 04/01/19 11:35 13:05 14:35 WBC RBC Hgb Hct MCV MCH MCHC RDW Plt Count [place] % (Auto) Lymph # Seg Neuts % (Manual) Lymphocytes % (Manual) Nucleated RBC % Seg Neutrophils # Man Lymphocytes # (Manual) Monocytes # (Manual) PT INR APTT D-Dimer POC ABG pH ABG pH POC ABG pO2 ABG pO2 ABG HCO3 ABG O2 Saturation ABG Base Excess ABG Hemoglobin VBG pH Oxyhemoglobin Sodium Potassium Chloride Carbon Dioxide BUN Creatinine Glucose POC Glucose 201 H 169 H 134 H Lactic Acid Calcium Phosphorus Magnesium Iron TIBC Direct Bilirubin AST ALT Alkaline Phosphatase Total Creatine Kinase CK-MB (CK-2) C-Reactive Protein Total Protein Albumin Vitamin B12 Salicylates Acetaminophen Miscellaneous Test Crossmatch 04/01/19 04/01/19 04/01/19 17:13 17:14 18:30 WBC RBC Hgb Hct MCV MCH MCHC RDW Plt Count [place] % (Auto) Lymph # Seg Neuts % (Manual) Lymphocytes % (Manual) Nucleated RBC % Seg Neutrophils # Man Lymphocytes # (Manual) Monocytes # (Manual) PT INR APTT D-Dimer 5203.68 H POC ABG pH ABG pH POC ABG pO2 ABG pO2 ABG HCO3 ABG O2 Saturation ABG Base Excess ABG Hemoglobin VBG pH Oxyhemoglobin Sodium Potassium Chloride Carbon Dioxide BUN Creatinine Glucose POC Glucose 69 L 128 H Lactic Acid Calcium Phosphorus Magnesium Iron TIBC Direct Bilirubin AST ALT Alkaline Phosphatase Total Creatine Kinase CK-MB (CK-2) C-Reactive Protein Total Protein Albumin Vitamin B12 Salicylates Acetaminophen Miscellaneous Test Crossmatch 04/01/19 04/01/19 04/02/19 22:50 Unknown 03:40 WBC RBC Hgb Hct MCV MCH MCHC RDW Plt Count [place] % (Auto) Lymph # Seg Neuts % (Manual) Lymphocytes % (Manual) Nucleated RBC % Seg Neutrophils # Man Lymphocytes # (Manual) Monocytes # (Manual) PT INR APTT D-Dimer POC ABG pH ABG pH POC ABG pO2 ABG pO2 78.3 L 142.8 H ABG HCO3 15.5 L ABG O2 Saturation ABG Base Excess -3.5 L -8.2 L ABG Hemoglobin 6.8 L 8.2 L VBG pH Oxyhemoglobin 94.3 L Sodium Potassium Chloride Carbon Dioxide BUN Creatinine Glucose POC Glucose 342 H Lactic Acid Calcium Phosphorus Magnesium Iron TIBC Direct Bilirubin AST ALT Alkaline Phosphatase Total Creatine Kinase CK-MB (CK-2) C-Reactive Protein Total Protein Albumin Vitamin B12 Salicylates Acetaminophen Miscellaneous Test Crossmatch 04/02/19 04/02/19 04/02/19 03:49 06:50 07:48 WBC RBC 2.65 L Hgb 8.6 L Hct 25.1 L MCV MCH MCHC RDW 17.6 H Plt Count 48 L [place] % (Auto) Lymph # Seg Neuts % (Manual) Lymphocytes % (Manual) Nucleated RBC % Seg Neutrophils # Man Lymphocytes # (Manual) Monocytes # (Manual) PT INR APTT D-Dimer POC ABG pH ABG pH POC ABG pO2 ABG pO2 ABG HCO3 ABG O2 Saturation ABG Base Excess ABG Hemoglobin VBG pH Oxyhemoglobin Sodium Potassium Chloride Carbon Dioxide BUN Creatinine Glucose POC Glucose 247 H 200 H Lactic Acid Calcium Phosphorus Magnesium Iron TIBC Direct Bilirubin AST ALT Alkaline Phosphatase Total Creatine Kinase CK-MB (CK-2) C-Reactive Protein Total Protein Albumin Vitamin B12 Salicylates Acetaminophen Miscellaneous Test Crossmatch 04/02/19 04/02/19 04/02/19 07:48 11:18 14:07 WBC RBC Hgb Hct MCV MCH MCHC RDW Plt Count [place] % (Auto) Lymph # Seg Neuts % (Manual) Lymphocytes % (Manual) Nucleated RBC % Seg Neutrophils # Man Lymphocytes # (Manual) Monocytes # (Manual) PT INR APTT D-Dimer POC ABG pH ABG pH POC ABG pO2 ABG pO2 ABG HCO3 ABG O2 Saturation ABG Base Excess ABG Hemoglobin VBG pH Oxyhemoglobin Sodium Potassium 3.5 L Chloride 115.7 H Carbon Dioxide 19 L BUN 29 H Creatinine 0.5 L Glucose 159 H POC Glucose 154 H 149 H Lactic Acid Calcium 7.5 L Phosphorus Magnesium Iron TIBC Direct Bilirubin AST 1418 H ALT 1134 H Alkaline Phosphatase 242 H Total Creatine Kinase CK-MB (CK-2) C-Reactive Protein Total Protein 4.2 L Albumin 2.1 L Vitamin B12 Salicylates Acetaminophen Miscellaneous Test Crossmatch 04/02/19 04/02/19 04/02/19 18:09 19:46 23:05 WBC RBC Hgb Hct MCV MCH MCHC RDW Plt Count [place] % (Auto) Lymph # Seg Neuts % (Manual) Lymphocytes % (Manual) Nucleated RBC % Seg Neutrophils # Man Lymphocytes # (Manual) Monocytes # (Manual) PT INR APTT D-Dimer POC ABG pH ABG pH POC ABG pO2 ABG pO2 ABG HCO3 ABG O2 Saturation ABG Base Excess ABG Hemoglobin VBG pH Oxyhemoglobin Sodium Potassium Chloride Carbon Dioxide BUN Creatinine Glucose POC Glucose 188 H 209 H 247 H Lactic Acid Calcium Phosphorus Magnesium Iron TIBC Direct Bilirubin AST ALT Alkaline Phosphatase Total Creatine Kinase CK-MB (CK-2) C-Reactive Protein Total Protein Albumin Vitamin B12 Salicylates Acetaminophen Miscellaneous Test Crossmatch 04/03/19 04/03/19 04/03/19 02:58 03:40 03:40 WBC RBC 2.87 L Hgb 9.3 L Hct 27.0 L MCV MCH MCHC RDW 17.2 H Plt Count 65 L [place] % (Auto) 9.8 H Lymph # 1.1 L Seg Neuts % (Manual) Lymphocytes % (Manual) Nucleated RBC % Seg Neutrophils # Man Lymphocytes # (Manual) Monocytes # (Manual) PT INR APTT D-Dimer POC ABG pH ABG pH POC ABG pO2 ABG pO2 ABG HCO3 ABG O2 Saturation ABG Base Excess ABG Hemoglobin VBG pH Oxyhemoglobin Sodium 147 H Potassium 3.5 L Chloride 116.7 H Carbon Dioxide 18 L BUN Creatinine 0.4 L Glucose 150 H POC Glucose 166 H Lactic Acid Calcium 8.1 L Phosphorus 2.20 L Magnesium Iron TIBC Direct Bilirubin AST 594 H ALT 861 H Alkaline Phosphatase 299 H Total Creatine Kinase CK-MB (CK-2) C-Reactive Protein Total Protein 4.4 L Albumin 2.1 L Vitamin B12 Salicylates Acetaminophen Miscellaneous Test Crossmatch 04/03/19 04/03/19 04/03/19 05:35 07:02 08:23 WBC RBC Hgb Hct MCV MCH MCHC RDW Plt Count [place] % (Auto) Lymph # Seg Neuts % (Manual) Lymphocytes % (Manual) Nucleated RBC % Seg Neutrophils # Man Lymphocytes # (Manual) Monocytes # (Manual) PT INR APTT D-Dimer POC ABG pH ABG pH POC ABG pO2 ABG pO2 97.7 H ABG HCO3 19.3 L ABG O2 Saturation ABG Base Excess -5.0 L ABG Hemoglobin 8.0 L VBG pH Oxyhemoglobin Sodium Potassium Chloride Carbon Dioxide BUN Creatinine Glucose POC Glucose 135 H 132 H Lactic Acid Calcium Phosphorus Magnesium Iron TIBC Direct Bilirubin AST ALT Alkaline Phosphatase Total Creatine Kinase CK-MB (CK-2) C-Reactive Protein Total Protein Albumin Vitamin B12 Salicylates Acetaminophen Miscellaneous Test Crossmatch 04/03/19 04/03/19 04/03/19 11:58 15:11 17:53 WBC RBC Hgb Hct MCV MCH MCHC RDW Plt Count [place] % (Auto) Lymph # Seg Neuts % (Manual) Lymphocytes % (Manual) Nucleated RBC % Seg Neutrophils # Man Lymphocytes # (Manual) Monocytes # (Manual) PT INR APTT D-Dimer POC ABG pH ABG pH POC ABG pO2 ABG pO2 ABG HCO3 ABG O2 Saturation ABG Base Excess ABG Hemoglobin VBG pH Oxyhemoglobin Sodium Potassium Chloride Carbon Dioxide BUN Creatinine Glucose POC Glucose 179 H 213 H 223 H Lactic Acid Calcium Phosphorus Magnesium Iron TIBC Direct Bilirubin AST ALT Alkaline Phosphatase Total Creatine Kinase CK-MB (CK-2) C-Reactive Protein Total Protein Albumin Vitamin B12 Salicylates Acetaminophen Miscellaneous Test Crossmatch 04/03/19 04/04/19 04/04/19 23:06 02:36 06:41 WBC RBC Hgb Hct MCV MCH MCHC RDW Plt Count [place] % (Auto) Lymph # Seg Neuts % (Manual) Lymphocytes % (Manual) Nucleated RBC % Seg Neutrophils # Man Lymphocytes # (Manual) Monocytes # (Manual) PT INR APTT D-Dimer POC ABG pH ABG pH POC ABG pO2 ABG pO2 ABG HCO3 ABG O2 Saturation ABG Base Excess ABG Hemoglobin VBG pH Oxyhemoglobin Sodium Potassium Chloride Carbon Dioxide BUN Creatinine Glucose POC Glucose 189 H 157 H 131 H Lactic Acid Calcium Phosphorus Magnesium Iron TIBC Direct Bilirubin AST ALT Alkaline Phosphatase Total Creatine Kinase CK-MB (CK-2) C-Reactive Protein Total Protein Albumin Vitamin B12 Salicylates Acetaminophen Miscellaneous Test Crossmatch 04/04/19 04/04/19 04/04/19 11:42 15:45 18:21 WBC RBC Hgb Hct MCV MCH MCHC RDW Plt Count [place] % (Auto) Lymph # Seg Neuts % (Manual) Lymphocytes % (Manual) Nucleated RBC % Seg Neutrophils # Man Lymphocytes # (Manual) Monocytes # (Manual) PT INR APTT D-Dimer POC ABG pH ABG pH POC ABG pO2 ABG pO2 ABG HCO3 ABG O2 Saturation ABG Base Excess ABG Hemoglobin VBG pH Oxyhemoglobin Sodium Potassium Chloride Carbon Dioxide BUN Creatinine Glucose POC Glucose 233 H 236 H 255 H Lactic Acid Calcium Phosphorus Magnesium Iron TIBC Direct Bilirubin AST ALT Alkaline Phosphatase Total Creatine Kinase CK-MB (CK-2) C-Reactive Protein Total Protein Albumin Vitamin B12 Salicylates Acetaminophen Miscellaneous Test Crossmatch 04/04/19 04/05/19 04/05/19 21:21 03:06 06:05 WBC RBC 2.68 L Hgb 8.5 L Hct 26.3 L MCV 98 H MCH MCHC RDW 17.4 H Plt Count [place] % (Auto) Lymph # Seg Neuts % (Manual) Lymphocytes % (Manual) Nucleated RBC % Seg Neutrophils # Man Lymphocytes # (Manual) Monocytes # (Manual) PT INR APTT D-Dimer POC ABG pH ABG pH POC ABG pO2 ABG pO2 ABG HCO3 ABG O2 Saturation ABG Base Excess ABG Hemoglobin VBG pH Oxyhemoglobin Sodium Potassium Chloride Carbon Dioxide BUN Creatinine Glucose POC Glucose 132 H 161 H Lactic Acid Calcium Phosphorus Magnesium Iron TIBC Direct Bilirubin AST ALT Alkaline Phosphatase Total Creatine Kinase CK-MB (CK-2) C-Reactive Protein Total Protein Albumin Vitamin B12 Salicylates Acetaminophen Miscellaneous Test Crossmatch 04/05/19 04/05/19 04/05/19 06:05 06:49 10:23 WBC RBC Hgb Hct MCV MCH MCHC RDW Plt Count [place] % (Auto) Lymph # Seg Neuts % (Manual) Lymphocytes % (Manual) Nucleated RBC % Seg Neutrophils # Man Lymphocytes # (Manual) Monocytes # (Manual) PT INR APTT D-Dimer POC ABG pH ABG pH POC ABG pO2 ABG pO2 ABG HCO3 ABG O2 Saturation ABG Base Excess ABG Hemoglobin VBG pH Oxyhemoglobin Sodium Potassium Chloride 112.5 H Carbon Dioxide BUN Creatinine 0.2 L Glucose 237 H POC Glucose 283 H 296 H Lactic Acid Calcium 7.9 L Phosphorus Magnesium Iron TIBC Direct Bilirubin AST ALT Alkaline Phosphatase Total Creatine Kinase CK-MB (CK-2) C-Reactive Protein Total Protein Albumin Vitamin B12 Salicylates Acetaminophen Miscellaneous Test Crossmatch 04/05/19 04/05/19 04/05/19 14:46 18:19 20:35 WBC RBC Hgb Hct MCV MCH MCHC RDW Plt Count [place] % (Auto) Lymph # Seg Neuts % (Manual) Lymphocytes % (Manual) Nucleated RBC % Seg Neutrophils # Man Lymphocytes # (Manual) Monocytes # (Manual) PT INR APTT D-Dimer POC ABG pH ABG pH POC ABG pO2 ABG pO2 ABG HCO3 ABG O2 Saturation ABG Base Excess ABG Hemoglobin VBG pH Oxyhemoglobin Sodium Potassium Chloride Carbon Dioxide BUN Creatinine Glucose POC Glucose 225 H 259 H 236 H Lactic Acid Calcium Phosphorus Magnesium Iron TIBC Direct Bilirubin AST ALT Alkaline Phosphatase Total Creatine Kinase CK-MB (CK-2) C-Reactive Protein Total Protein Albumin Vitamin B12 Salicylates Acetaminophen Miscellaneous Test Crossmatch 04/05/19 04/06/19 04/06/19 23:11 00:06 03:14 WBC RBC Hgb Hct MCV MCH MCHC RDW Plt Count [place] % (Auto) Lymph # Seg Neuts % (Manual) Lymphocytes % (Manual) Nucleated RBC % Seg Neutrophils # Man Lymphocytes # (Manual) Monocytes # (Manual) PT INR APTT D-Dimer 4526.86 H POC ABG pH ABG pH POC ABG pO2 ABG pO2 ABG HCO3 ABG O2 Saturation ABG Base Excess ABG Hemoglobin VBG pH Oxyhemoglobin Sodium Potassium Chloride Carbon Dioxide BUN Creatinine Glucose POC Glucose 205 H 228 H Lactic Acid Calcium Phosphorus Magnesium Iron TIBC Direct Bilirubin AST ALT Alkaline Phosphatase Total Creatine Kinase CK-MB (CK-2) C-Reactive Protein Total Protein Albumin Vitamin B12 Salicylates Acetaminophen Miscellaneous Test Crossmatch 04/06/19 04/06/19 04/06/19 05:20 05:20 07:57 WBC 15.1 H RBC 2.90 L Hgb 9.1 L Hct 28.0 L MCV MCH MCHC RDW 17.3 H Plt Count [place] % (Auto) Lymph # Seg Neuts % (Manual) Lymphocytes % (Manual) Nucleated RBC % Seg Neutrophils # Man Lymphocytes # (Manual) Monocytes # (Manual) PT INR APTT D-Dimer POC ABG pH ABG pH POC ABG pO2 ABG pO2 ABG HCO3 ABG O2 Saturation ABG Base Excess ABG Hemoglobin VBG pH Oxyhemoglobin Sodium Potassium Chloride Carbon Dioxide BUN Creatinine 0.2 L Glucose 161 H POC Glucose 191 H Lactic Acid Calcium 8.0 L Phosphorus Magnesium Iron TIBC Direct Bilirubin AST ALT Alkaline Phosphatase Total Creatine Kinase CK-MB (CK-2) C-Reactive Protein Total Protein Albumin Vitamin B12 Salicylates Acetaminophen Miscellaneous Test Crossmatch 04/06/19 04/06/19 04/06/19 12:09 18:24 22:07 WBC RBC Hgb Hct MCV MCH MCHC RDW Plt Count [place] % (Auto) Lymph # Seg Neuts % (Manual) Lymphocytes % (Manual) Nucleated RBC % Seg Neutrophils # Man Lymphocytes # (Manual) Monocytes # (Manual) PT INR APTT D-Dimer POC ABG pH ABG pH POC ABG pO2 ABG pO2 ABG HCO3 ABG O2 Saturation ABG Base Excess ABG Hemoglobin VBG pH Oxyhemoglobin Sodium Potassium Chloride Carbon Dioxide BUN Creatinine Glucose POC Glucose 143 H 161 H 140 H Lactic Acid Calcium Phosphorus Magnesium Iron TIBC Direct Bilirubin AST ALT Alkaline Phosphatase Total Creatine Kinase CK-MB (CK-2) C-Reactive Protein Total Protein Albumin Vitamin B12 Salicylates Acetaminophen Miscellaneous Test Crossmatch 04/07/19 04/07/19 04/07/19 03:00 04:30 04:30 WBC 13.0 H RBC 2.65 L Hgb 8.3 L Hct 25.5 L MCV MCH MCHC RDW 17.0 H Plt Count [place] % (Auto) Lymph # Seg Neuts % (Manual) Lymphocytes % (Manual) Nucleated RBC % Seg Neutrophils # Man Lymphocytes # (Manual) Monocytes # (Manual) PT INR APTT D-Dimer POC ABG pH ABG pH POC ABG pO2 ABG pO2 ABG HCO3 ABG O2 Saturation ABG Base Excess ABG Hemoglobin VBG pH Oxyhemoglobin Sodium Potassium Chloride Carbon Dioxide BUN Creatinine 0.2 L Glucose 208 H POC Glucose 224 H Lactic Acid Calcium 7.7 L Phosphorus Magnesium Iron TIBC Direct Bilirubin AST ALT Alkaline Phosphatase Total Creatine Kinase CK-MB (CK-2) C-Reactive Protein Total Protein Albumin Vitamin B12 Salicylates Acetaminophen Miscellaneous Test Crossmatch 04/07/19 04/07/19 04/07/19 05:47 08:27 10:33 WBC RBC Hgb Hct MCV MCH MCHC RDW Plt Count [place] % (Auto) Lymph # Seg Neuts % (Manual) Lymphocytes % (Manual) Nucleated RBC % Seg Neutrophils # Man Lymphocytes # (Manual) Monocytes # (Manual) PT INR APTT D-Dimer POC ABG pH ABG pH POC ABG pO2 ABG pO2 ABG HCO3 ABG O2 Saturation ABG Base Excess ABG Hemoglobin VBG pH Oxyhemoglobin Sodium Potassium Chloride Carbon Dioxide BUN Creatinine Glucose POC Glucose 225 H 176 H 207 H Lactic Acid Calcium Phosphorus Magnesium Iron TIBC Direct Bilirubin AST ALT Alkaline Phosphatase Total Creatine Kinase CK-MB (CK-2) C-Reactive Protein Total Protein Albumin Vitamin B12 Salicylates Acetaminophen Miscellaneous Test Crossmatch
[2019-04-07] MEDS: FLAGYL 500 MG/100 ML 500 MG/100 ML BAG IV SCH ×2 (14:18→22:08)
[2019-04-07] MEDS: LANTUS SUB-Q SCH (22:07)
[2019-04-07] MEDS: ENOXAPARIN SUB-Q SCH (22:08)
[2019-04-08] MEDS: CEFEPIME/NS 2 GM/100 ML 2 GM/100 ML BAG IV SCH ×3 (01:40→18:14)
[2019-04-08] MEDS: HumuLIN R SUB-Q SCH ×5 (03:20→18:13)
[2019-04-08] MEDS: FLAGYL 500 MG/100 ML 500 MG/100 ML BAG IV SCH ×3 (06:06→21:59)
--- NOTE | 2019-04-08 08:43 | Progress Note ---
Assessment and Plan Assessment and plan: 28 year old woman with a history of diabetes was brought to the emergency room following a cardiac arrest. Her last well-known time was 10:30 in the morning, she was traveling with a friend, she was unresponsive in the back seat. EMS was called, CPR was started and continued here in the emergency room. Patient was intubated in the ER, noted hypotensive started on dobutamine, epinephrine and Levophed drip, given IV fluids, found to be in DKA with BG ~2200, several metabolic derangements - placed on insulin drip and admitted to ICU. Still intubated on vent, minimal response. Acute respiratory failure - on vent, cont nebs, CC consulted Acute encephalopathy, POA - CT head negative - likely from cardiac arrest - Neurology following Cardiac arrest s/p resuscitation - likely 2/2 severe hyperglycemia - preserved EF onb2d echo DKA, severe - BG was >2200 on admission - s/p insulin drip. cont iv fluid - monitor BG q4h, on TF and on subqu insulin - adjust dose as needed Shock hypotensive vs sepsis - cont iv fluid, s/p pressor support - follow Cx result, cont abx - weaned off pressor as tolerated Sepsis with possible aspiration PNA - evident on CXR on admission with left sided infiltrates - cont abx per ID Fever due to Sepsis Head lice Permethin given Acute renal failure, likely vasomotor nephropathy - resolved - cont iv fluid, monitor BMP Anemia, acute on chronic - no sign of blood loss s/p 2 Units PRBC transfused Hyperkalemia, resolved with fluid and insulin Hypernatremia Resolved hypokalemia, resolved Shock liver with elevated LFT and Coagulopathy - due to cardiac arrest and hypotension - cont to monitor Hypermagnesemia Hyperphosphatemia - cont to monitor, improved DVT Px, heparin Poor prognosis discussed with mother at bedside on 04/03/19 DNR status Mother has decided on DNR status The high probability of a clinically significant, sudden or life threatening d eterioration of the [multiple] system(s) required my full and direct attention, intervention and personal management. The aggregate critical care time was [32] minutes. This time is in addition to time spent performing reported procedures but includes the following: [x] Data Review and interpretation [x] Patient assessment and monitoring of vital signs [x] Documentation [x] Medication orders and management History Interval history: Minimal responsive still intubated Fever Hospitalist Physical - Physical exam Narrative exam: Gen: Not in acute distress, intubated, on vent HEENT: Normocephalic, atraumatic Neck: supple, no JVD Heart: S1 and S2 reg, no murmurs, rubs or gallop Lungs: Clear to auscultation, no rhonchi, no wheeze Abd: soft, non tender, non distended, normal BS, Ext: No edema, no clubbing, no cyanosis Neuro: Minimal responsive, does not follow commands, - Constitutional Vitals: Temp Pulse Resp BP Pulse Ox 98.3 F 127 H 17 135/75 97 04/08/19 03:29 04/08/19 06:00 04/08/19 06:00 04/08/19 06:00 04/08/19 06:00 General appearance: Present: other (intubated) Results - Labs CBC & Chem 7: 04/07/19 04:30 04/07/19 04:30 Labs: Laboratory Last Values WBC 13.0 K/mm3 (4.5-11.0) H 04/07/19 04:30 RBC 2.65 M/mm3 (3.65-5.03) L 04/07/19 04:30 Hgb 8.3 gm/dl (10.1-14.3) L 04/07/19 04:30 Hct 25.5 % (30.3-42.9) L 04/07/19 04:30 MCV 96 fl (79-97) 04/07/19 04:30 MCH 31 pg (28-32) 04/07/19 04:30 MCHC 32 % (30-34) 04/07/19 04:30 RDW 17.0 % (13.2-15.2) H 04/07/19 04:30 Plt Count 286 K/mm3 (140-440) 04/07/19 04:30 Lymph % (Auto) 16.9 % (13.4-35.0) 04/03/19 03:40 [place] % (Auto) 9.8 % (0.0-7.3) H 04/03/19 03:40 Eos % (Auto) 3.2 % (0.0-4.3) 04/03/19 03:40 Baso % (Auto) 0.4 % (0.0-1.8) 04/03/19 03:40 Lymph # 1.1 K/mm3 (1.2-5.4) L 04/03/19 03:40 [place] # 0.6 K/mm3 (0.0-0.8) 04/03/19 03:40 Eos # 0.2 K/mm3 (0.0-0.4) 04/03/19 03:40 Baso # 0.0 K/mm3 (0.0-0.1) 04/03/19 03:40 Add Manual Diff Complete 04/01/19 05:01 Total Counted 100 04/01/19 05:01 Seg Neutrophils % 69.7 % (40.0-70.0) 04/03/19 03:40 Seg Neuts % (Manual) 71.0 % (40.0-70.0) H 04/01/19 05:01 0 % 04/01/19 05:01 20.0 % (13.4-35.0) 04/01/19 05:01 Reactive Lymphs % (Man) 0 % 04/01/19 05:01 7.0 % (0.0-7.3) 04/01/19 05:01 2.0 % (0.0-4.3) 04/01/19 05:01 0 % (0.0-1.8) 04/01/19 05:01 0 % 04/01/19 05:01 0 % 04/01/19 05:01 0 % 04/01/19 05:01 0 % 04/01/19 05:01 Nucleated RBC % Not Reportable 04/01/19 05:01 Seg Neutrophils # 4.4 K/mm3 (1.8-7.7) 04/03/19 03:40 Seg Neutrophils # Man 4.8 K/mm3 (1.8-7.7) 04/01/19 05:01 Band Neutrophils # 0.0 K/mm3 04/01/19 05:01 1.4 K/mm3 (1.2-5.4) 04/01/19 05:01 Abs React Lymphs (Man) 0.0 K/mm3 04/01/19 05:01 0.5 K/mm3 (0.0-0.8) 04/01/19 05:01 0.1 K/mm3 (0.0-0.4) 04/01/19 05:01 0.0 K/mm3 (0.0-0.1) 04/01/19 05:01 0.0 K/mm3 04/01/19 05:01 0.0 K/mm3 04/01/19 05:01 0.0 K/mm3 04/01/19 05:01 Blast Cells # 0.0 K/mm3 04/01/19 05:01 WBC Morphology Not Reportable 04/01/19 05:01 Hypersegmented Neuts Not Reportable 04/01/19 05:01 Hyposegmented Neuts Not Reportable 04/01/19 05:01 Hypogranular Neuts Not Reportable 04/01/19 05:01 Not Reportable 04/01/19 05:01 Not Reportable 04/01/19 05:01 Not Reportable 04/01/19 05:01 Not Reportable 04/01/19 05:01 Not Reportable 04/01/19 05:01 Not Reportable 04/01/19 05:01 Not Reportable 04/01/19 05:01 Not Reportable 04/01/19 05:01 Plt Clumps, EDTA Not Reportable 04/01/19 05:01 Not Reportable 04/01/19 05:01 Not Reportable 04/01/19 05:01 Not Reportable 04/01/19 05:01 Plt Morphology Comment Not Reportable 04/01/19 05:01 RBC Morphology Normal 04/01/19 05:01 Dimorphic RBCs Not Reportable 04/01/19 05:01 Not Reportable 04/01/19 05:01 Not Reportable 04/01/19 05:01 Not Reportable 04/01/19 05:01 Not Reportable 04/01/19 05:01 Not Reportable 04/01/19 05:01 Not Reportable 04/01/19 05:01 Not Reportable 04/01/19 05:01 Not Reportable 04/01/19 05:01 Not Reportable 04/01/19 05:01 Not Reportable 04/01/19 05:01 Not Reportable 04/01/19 05:01 Not Reportable 04/01/19 05:01 Not Reportable 04/01/19 05:01 Not Reportable 04/01/19 05:01 Not Reportable 04/01/19 05:01 Not Reportable 04/01/19 05:01 Not Reportable 04/01/19 05:01 Not Reportable 04/01/19 05:01 Not Reportable 04/01/19 05:01 Acanthocytes (Spur) Not Reportable 04/01/19 05:01 Rouleaux Not Reportable 04/01/19 05:01 Not Reportable 04/01/19 05:01 Not Reportable 04/01/19 05:01 Not Reportable 04/01/19 05:01 Not Reportable 04/01/19 05:01 Hem Pathologist Commnt No 04/01/19 05:01 PT 13.9 Sec. (12.2-14.9) 04/01/19 17:14 INR 1.10 (0.87-1.13) 04/01/19 17:14 APTT 74.5 Sec. (24.2-36.6) H* 03/29/19 19:20 313 mg/dl (211-480) 04/01/19 17:14 4526.86 ng/mlDDU (0-234) H 04/06/19 00:06 Heparin Anti-Xa, Unfract Negative (Negative) 03/31/19 15:00 POC ABG pH 7.374 (7.35-7.45) 04/04/19 03:46 ABG pH 7.396 pH Units (7.350-7.450) 04/03/19 05:35 POC ABG pCO2 36.2 (35-45) 04/04/19 03:46 ABG pCO2 32.2 mm Hg 04/03/19 05:35 POC ABG pO2 96 (80-105) 04/04/19 03:46 ABG pO2 97.7 mm Hg (80.0-90.0) H 04/03/19 05:35 POC ABG HCO3 21.2 (22-26 mml/L) 04/04/19 03:46 ABG HCO3 19.3 mmol/L (20.0-26.0) L 04/03/19 05:35 POC ABG Total CO2 22 (23-27mmol/L) 04/04/19 03:46 POC ABG O2 Sat 97 04/04/19 03:46 ABG O2 Saturation 97.6 % (95.0-99.0) 04/03/19 05:35 ABG O2 Content 10.9 (0.0-44) 04/03/19 05:35 POC ABG Base Excess -4 ((-2) - (+3)mmol/L) 04/04/19 03:46 ABG Base Excess -5.0 mmol/L (-2.0-3.0) L 04/03/19 05:35 ABG Hemoglobin 8.0 gm/dl (12.0-16.0) L 04/03/19 05:35 ABG Carboxyhemoglobin 2.1 % (0.0-5.0) 04/03/19 05:35 ABG Methemoglobin 0.5 % (0.0-1.5) 04/03/19 05:35 VBG pH 6.800 (7.320-7.420) L* 03/29/19 19:47 95.1 % (95.0-99.0) 04/03/19 05:35 25 % 04/04/19 03:46 Sodium 143 mmol/L (137-145) 04/07/19 04:30 Potassium 4.3 mmol/L (3.6-5.0) 04/07/19 04:30 Chloride 106.0 mmol/L (98-107) 04/07/19 04:30 Carbon Dioxide 27 mmol/L (22-30) 04/07/19 04:30 14 mmol/L 04/07/19 04:30 BUN 10 mg/dL (7-17) 04/07/19 04:30 0.2 mg/dL (0.7-1.2) L 04/07/19 04:30 Estimated GFR > 60 ml/min 04/07/19 04:30 50 % 04/07/19 04:30 Glucose 208 mg/dL (65-100) H 04/07/19 04:30 POC Glucose 194 (70-105) H 04/08/19 05:37 Lactic Acid 3.30 mmol/L (0.7-2.0) H* 03/31/19 07:50 Calcium 7.7 mg/dL (8.4-10.2) L 04/07/19 04:30 Phosphorus 2.20 mg/dL (2.5-4.5) L 04/03/19 03:40 Magnesium 2.60 mg/dL (1.7-2.3) H 03/30/19 05:26 Iron 26 ug/dL (37-170) L 03/31/19 08:20 TIBC 193 mcg/dL (250-450) L 03/31/19 08:20 0.60 mg/dL (0.1-1.2) 04/03/19 03:40 0.2 mg/dL (0-0.2) 04/02/19 07:48 0.5 mg/dL 04/02/19 07:48 AST 594 units/L (5-40) H 04/03/19 03:40 ALT 861 units/L (7-56) H 04/03/19 03:40 299 units/L (35-129) H 04/03/19 03:40 2465 units/L (30-135) H 03/30/19 05:26 CK-MB (CK-2) 52.7 ng/mL (0.0-4.0) H 03/30/19 05:26 CK-MB (CK-2) Rel Index 2.1 (0-4) 03/30/19 05:26 < 0.010 ng/mL (0.00-0.029) 04/06/19 05:20 2.40 mg/dL (0.00-1.30) H 03/30/19 12:57 4.4 g/dL (6.3-8.2) L 04/03/19 03:40 2.1 g/dL (3.9-5) L 04/03/19 03:40 0.9 % 04/03/19 03:40 See scanned result 03/31/19 15:00 Vitamin B12 > 2000 pg/mL (211-911) H 03/31/19 08:20 > 20 ng/mL (7.3-26.0) 03/31/19 08:20 HCG, Qual Negative (Negative) 03/29/19 19:20 Yellow (Yellow) 03/29/19 23:10 Slightly-cloudy (Clear) 03/29/19 23:10 6.0 (5.0-7.0) 03/29/19 23:10 Ur Specific [place] 1.021 (1.003-1.030) 03/29/19 23:10 100 mg/dl mg/dL (Negative) 03/29/19 23:10 >=500 mg/dL (Negative) 03/29/19 23:10 20 mg/dL (Negative) 03/29/19 23:10 Lg (Negative) 03/29/19 23:10 Neg (Negative) 03/29/19 23:10 Neg (Negative) 03/29/19 23:10 < 2.0 mg/dL (<2.0) 03/29/19 23:10 Ur Leukocyte Esterase Neg (Negative) 03/29/19 23:10 1.0 /HPF (0.0-6.0) 03/29/19 23:10 1.0 /HPF (0.0-6.0) 03/29/19 23:10 Few /HPF 03/29/19 23:10 Salicylates 0.8 mg/dL (2.8-20.0) L 03/30/19 Unknown Presumptive negative 03/29/19 23:10 Presumptive negative 03/29/19 23:10 Acetaminophen < 5.0 ug/mL (10.0-30.0) L 03/30/19 Unknown Ur Barbiturates Screen Presumptive negative 03/29/19 23:10 Ur Phencyclidine Scrn Presumptive negative 03/29/19 23:10 Ur Amphetamines Screen Presumptive negative 03/29/19 23:10 U Benzodiazepines Scrn Presumptive negative 03/29/19 23:10 Presumptive negative 03/29/19 23:10 U Marijuana (THC) Screen Presumptive negative 03/29/19 23:10 Disclamer 03/29/19 23:10 Heparin-induced Plt Ab Negative (Negative) 03/31/19 15:00 UF Heparin High Dose 0 % Release 03/31/19 15:00 FABIAN UFH Low Dose 0.1 0 % Release 03/31/19 15:00 FABIAN UFH Low Dose 0.5 0 % Release 03/31/19 15:00 Hepatitis A IgM Ab Non-reactive (NonReactive) 03/30/19 Unknown Hep Bs Antigen Non-reactive (Negative) 03/30/19 Unknown Hep B Core IgM Ab Non-reactive (NonReactive) 03/30/19 Unknown Non-reactive (NonReactive) 03/30/19 Unknown Flexitest 1 H 03/30/19 14:00 Blood Type O POSITIVE 03/30/19 03:30 Antibody Screen Negative 03/30/19 03:30 Crossmatch See Detail 03/30/19 03:30 Active Medications - Current Medications Current Medications: Generic Name Dose Route Start Last Admin Trade Name Freyaneth PRN Reason Stop Dose Admin Acetaminophen 650 mg 03/29/19 23:34 04/01/19 23:38 Tylenol PO 650 mg Q4H PRN Administration Pain MILD(1-3)/Fever >100.5/WARE Lipase/Protease/Amylase 1 each 04/02/19 11:[address] 10,500 Unit FEEDTUBE PRN PRN For Clogged Feeding Tube Dextrose 0 ml 03/29/19 20:33 03/31/19 02:15 D50w (25gm) Syringe IV 10 ml PRN PRN Administration Hypoglycemia Enoxaparin Sodium 40 mg 04/05/19 22:00 04/07/19 22:08 Lovenox SUB-Q 40 mg QDAY@2200 ZAMZAM Administration Famotidine 20 mg 04/02/19 10:00 04/07/19 22:08 Pepcid PO 20 mg BID ZAMZAM Administration Fentanyl 50 mcg 04/05/19 11:00 04/07/19 14:19 Sublimaze IV 50 mcg Q2H PRN Administration Pain , Severe (7-10)/AGITATION Hydrophilic Ointment 1 applic 03/30/19 11:24 Vaseline Lip Therapy TP Q2HR PRN Dry Lips Norepinephrine 4 mg in 250 mls @ 7.5 mls/hr 03/29/19 21:00 04/01/19 19:00 Levophed Drip 4 Mg/Ns 250 Ml IV 0 mcg/min TITR ZAMZAM 0 mls/hr Titration Protocol 2 MCG/MIN Vasopressin 20 unit/ Sodium 101 mls @ 9.09 mls/hr 03/29/19 23:45 04/02/19 07:45 Chloride IV 0 units/min TITR ZAMZAM 0 mls/hr Titration Protocol 0.03 UNITS/MIN Phenylephrine HCl 100 mg/ 100 mls @ 3 mls/hr 03/30/19 01:15 03/30/19 15:15 Sodium Chloride IV 0 mcg/min TITR ZAMZAM 0 mls/hr Titration Protocol 50 MCG/MIN Cefepime HCl 2 gm in 100 mls @ 200 mls/hr 04/07/19 10:00 04/08/19 01:40 Maxipime/Ns 2 Gm/100 Ml IV 200 mls/hr Q8H ZAMZAM Administration Metronidazole 500 mg in 100 mls @ 100 mls/hr 04/07/19 14:00 04/08/19 06:06 Flagyl 500 Mg/100 Ml IV 100 mls/hr Q8HR ZAMZAM Administration Insulin Glargine 10 units 04/05/19 22:00 04/07/19 22:07 Lantus SUB-Q 10 units QHS ZAMZAM Administration Insulin Human Regular 0 units 04/01/19 19:00 04/08/19 06:07 Humulin R SUB-Q 2 units Q4H ZAMZAM Administration Protocol Levetiracetam 500 mg 04/03/19 10:00 04/07/19 22:07 Keppra PO 500 mg BID ZAMZAM Administration Multi-Ingred Cream/Lotion/Oil/Oint 1 applic 03/30/19 11:24 04/06/19 11:39 Artificial Tears Ophth Oint OU 1 applic Q4HR PRN Administration Dry Eye(s) Ondansetron HCl 4 mg 03/29/19 23:34 Zofran IV Q8H PRN Nausea And Vomiting Simple Syrup 15 ml 04/02/19 11:44 Simple Syrup FEEDTUBE PRN PRN Hypoglycemia Simple Syrup 30 ml 04/02/19 11:44 Simple Syrup FEEDTUBE PRN PRN Hypoglycemia Sodium Bicarbonate 325 mg 04/02/19 11:44 Sodium Bicarbonate FEEDTUBE PRN PRN For Clogged Feeding Tube Sodium Chloride 10 ml 03/30/19 10:00 04/07/19 22:09 Sodium Chloride Flush Syringe 10 Ml IV 10 ml BID ZAMZAM Administration Sodium Chloride 10 ml 03/29/19 23:34 Sodium Chloride Flush Syringe 10 Ml IV PRN PRN LINE FLUSH Nutrition/Malnutrition Assess - Dietary Evaluation Nutrition/Malnutrition Findings: Nutrition Notes Start: 03/30/19 13:14 Freq: Status: Active Protocol: Document 04/04/19 10:13 LM (Rec: 04/04/19 10:17 LM [id number]) Nutrition Notes Initial or Follow up Reassessment Current Diagnosis Diabetes,Sepsis,Respiratory Failure Other Pertinent Diagnosis s/p cardiac arrest, DKA, ARF, Shock liver Current Diet NPO Labs/Tests POC glu 131 Pertinent Medications Reviewed Height 5 ft Weight 52.2 kg [place] Body Weight (kg) 45.45 BMI 22.4 Weight change and time frame Wt change possibly due to edema in both arms. Subjective/Other Information Glucerna running at 50 ml/hr. Pt on vent and tolerating TF. Burn Absent Trauma Absent #1 Nutrition Diagnosis Inadequate oral intake Diagnosis Progress(for reassessment Continues documentation) Is patient on ventilator? Yes Is Patient Ambulatory and/or Out of Bed No REE-([facility]-confined to bed) 1392.552 Calculation Used for Recommendations [facility] Additional Notes Pro needs 1.2-2g/k-104g/ day Fluid needs 1ml/kcal Nutrition Intervention Change Diet Order: Continue TF Nutrition Support: Glucerna 1.2 at 50ml/hr with 80ml water flush q4h. Kcal 1,440 Protein (gm) 72 Fluid (mL) 966 Goal #1 Meet at least 75% of energy and protein needs Follow-Up By: 04/11/19 Additional Comments F/U for TF tolerance/rate
--- NOTE | 2019-04-08 10:22 | Progress Note ---
Subjective Date of service: 04/08/19 Principal diagnosis: Ac Hypoxemic Resp Failure; DKA; Severe sepsis with shock; ANGELICA Interval history: I went over the history with mother who is nurse this patient has incredible hx of encehaolpathy signed DNR Objective - Vital Sign Vital Signs - 12hr 04/07/19 04/07/19 04/08/19 23:00 23:08 00:00 Temperature 98.2 F Pulse Rate 144 H 126 H 131 H Respiratory 15 32 H 31 H Rate Blood Pressure 122/77 132/81 121/82 O2 Sat by Pulse 98 99 94 Oximetry 04/08/19 04/08/19 04/08/19 00:12 01:00 02:00 Temperature Pulse Rate 130 H 132 H 130 H Respiratory 30 H 25 H 31 H Rate Blood Pressure 121/82 125/78 126/77 O2 Sat by Pulse 99 95 94 Oximetry 04/08/19 04/08/19 04/08/19 03:00 03:29 04:00 Temperature 98.3 F Pulse Rate 137 H 126 H Respiratory 26 H 31 H Rate Blood Pressure 126/77 126/85 O2 Sat by Pulse 96 95 Oximetry 04/08/19 04/08/19 04/08/19 04:30 05:00 06:00 Temperature Pulse Rate 124 H 138 H 127 H Respiratory 25 H 17 Rate Blood Pressure 133/86 133/86 135/75 O2 Sat by Pulse 98 96 97 Oximetry 04/08/19 04/08/19 04/08/19 07:00 08:00 09:00 Temperature 99.6 F Pulse Rate 126 H 116 H 128 H Respiratory 21 21 20 Rate Blood Pressure 125/78 131/91 129/87 O2 Sat by Pulse 95 99 99 Oximetry - Laboratory Findings CBC and BMP: 04/07/19 04:30 04/07/19 04:30 Abnormal Lab Findings: Abnormal Labs 03/29/19 03/29/19 03/29/19 19:11 19:20 19:20 WBC 26.7 H RBC 2.52 L Hgb 8.1 L Hct MCV 148 H MCH MCHC 22 L RDW 18.5 H Plt Count [place] % (Auto) Lymph # Seg Neuts % (Manual) 82.0 H Lymphocytes % (Manual) 7.0 L Nucleated RBC % Seg Neutrophils # Man 21.9 H Lymphocytes # (Manual) Monocytes # (Manual) 1.9 H PT 21.8 H INR 1.95 H APTT 74.5 H* D-Dimer POC ABG pH ABG pH POC ABG pO2 ABG pO2 ABG HCO3 ABG O2 Saturation ABG Base Excess ABG Hemoglobin VBG pH Oxyhemoglobin Sodium Potassium Chloride Carbon Dioxide BUN Creatinine Glucose POC Glucose > 500 H Lactic Acid Calcium Phosphorus Magnesium Iron TIBC Direct Bilirubin AST ALT Alkaline Phosphatase Total Creatine Kinase CK-MB (CK-2) C-Reactive Protein Total Protein Albumin Vitamin B12 Salicylates Acetaminophen Miscellaneous Test Crossmatch 03/29/19 03/29/19 03/29/19 19:20 19:47 20:59 WBC RBC Hgb Hct MCV MCH MCHC RDW Plt Count [place] % (Auto) Lymph # Seg Neuts % (Manual) Lymphocytes % (Manual) Nucleated RBC % Seg Neutrophils # Man Lymphocytes # (Manual) Monocytes # (Manual) PT INR APTT D-Dimer POC ABG pH 6.892 L ABG pH POC ABG pO2 236 H ABG pO2 ABG HCO3 ABG O2 Saturation ABG Base Excess ABG Hemoglobin VBG pH 6.800 L* Oxyhemoglobin Sodium 118 L* Potassium 9.0 H* Chloride 64.5 L Carbon Dioxide 7 L* BUN 53 H Creatinine 2.1 H Glucose 2196 H* POC Glucose Lactic Acid Calcium 12.4 H* Phosphorus Magnesium Iron TIBC Direct Bilirubin AST 3900 H ALT 1034 H Alkaline Phosphatase 316 H Total Creatine Kinase CK-MB (CK-2) C-Reactive Protein Total Protein 5.1 L Albumin 2.8 L Vitamin B12 Salicylates Acetaminophen Miscellaneous Test Crossmatch 03/29/19 03/29/19 03/29/19 22:45 22:45 22:45 WBC RBC Hgb Hct MCV MCH MCHC RDW Plt Count [place] % (Auto) Lymph # Seg Neuts % (Manual) Lymphocytes % (Manual) Nucleated RBC % Seg Neutrophils # Man Lymphocytes # (Manual) Monocytes # (Manual) PT INR APTT D-Dimer POC ABG pH ABG pH POC ABG pO2 ABG pO2 ABG HCO3 ABG O2 Saturation ABG Base Excess ABG Hemoglobin VBG pH Oxyhemoglobin Sodium 132 L D Potassium 7.0 H* Chloride 84.3 L Carbon Dioxide 3 L* BUN 48 H Creatinine 1.8 H Glucose 1779 H* POC Glucose Lactic Acid Calcium Phosphorus 21.70 H Magnesium 4.70 H Iron TIBC Direct Bilirubin AST ALT Alkaline Phosphatase Total Creatine Kinase 363 H CK-MB (CK-2) C-Reactive Protein Total Protein Albumin Vitamin B12 Salicylates Acetaminophen Miscellaneous Test Crossmatch 03/29/19 03/29/19 03/30/19 Unknown Unknown 00:11 WBC RBC Hgb Hct MCV MCH MCHC RDW Plt Count [place] % (Auto) Lymph # Seg Neuts % (Manual) Lymphocytes % (Manual) Nucleated RBC % Seg Neutrophils # Man Lymphocytes # (Manual) Monocytes # (Manual) PT INR APTT D-Dimer POC ABG pH ABG pH POC ABG pO2 ABG pO2 ABG HCO3 ABG O2 Saturation ABG Base Excess ABG Hemoglobin VBG pH Oxyhemoglobin Sodium 122 L Potassium 7.9 H* 6.4 H* Chloride 75.3 L 89.7 L Carbon Dioxide 3 L* 12 L D BUN 52 H 46 H Creatinine 2.0 H 1.7 H Glucose 2043 H* 1591 H* POC Glucose Lactic Acid Calcium 7.8 L Phosphorus 19.30 H Magnesium 3.90 H Iron TIBC Direct Bilirubin AST ALT Alkaline Phosphatase Total Creatine Kinase CK-MB (CK-2) C-Reactive Protein Total Protein Albumin Vitamin B12 Salicylates Acetaminophen Miscellaneous Test Crossmatch 03/30/19 03/30/19 03/30/19 00:11 02:14 02:14 WBC RBC Hgb Hct MCV MCH MCHC RDW Plt Count [place] % (Auto) Lymph # Seg Neuts % (Manual) Lymphocytes % (Manual) Nucleated RBC % Seg Neutrophils # Man Lymphocytes # (Manual) Monocytes # (Manual) PT INR APTT D-Dimer POC ABG pH ABG pH POC ABG pO2 ABG pO2 ABG HCO3 ABG O2 Saturation ABG Base Excess ABG Hemoglobin VBG pH Oxyhemoglobin Sodium Potassium Chloride Carbon Dioxide 9 L* BUN 45 H Creatinine 1.7 H Glucose 1155 H* POC Glucose Lactic Acid Calcium 7.9 L Phosphorus 10.90 H D 5.30 H D Magnesium 3.10 H 2.90 H Iron TIBC Direct Bilirubin AST ALT Alkaline Phosphatase Total Creatine Kinase CK-MB (CK-2) C-Reactive Protein Total Protein Albumin Vitamin B12 Salicylates Acetaminophen Miscellaneous Test Crossmatch 03/30/19 03/30/19 03/30/19 03:15 03:30 04:23 WBC 18.0 H RBC 2.31 L Hgb 7.3 L Hct 23.8 L D MCV 103 H MCH MCHC RDW 17.1 H Plt Count [place] % (Auto) Lymph # Seg Neuts % (Manual) 79.0 H Lymphocytes % (Manual) Nucleated RBC % Seg Neutrophils # Man 14.2 H Lymphocytes # (Manual) Monocytes # (Manual) PT INR APTT D-Dimer POC ABG pH 7.251 L ABG pH POC ABG pO2 156 H ABG pO2 ABG HCO3 ABG O2 Saturation ABG Base Excess ABG Hemoglobin VBG pH Oxyhemoglobin Sodium Potassium Chloride Carbon Dioxide BUN Creatinine Glucose POC Glucose Lactic Acid Calcium Phosphorus Magnesium Iron TIBC Direct Bilirubin AST ALT Alkaline Phosphatase Total Creatine Kinase CK-MB (CK-2) C-Reactive Protein Total Protein Albumin Vitamin B12 Salicylates Acetaminophen Miscellaneous Test Crossmatch See Detail 03/30/19 03/30/19 03/30/19 05:26 05:26 10:38 WBC RBC Hgb Hct MCV MCH MCHC RDW Plt Count [place] % (Auto) Lymph # Seg Neuts % (Manual) Lymphocytes % (Manual) Nucleated RBC % Seg Neutrophils # Man Lymphocytes # (Manual) Monocytes # (Manual) PT INR APTT D-Dimer POC ABG pH ABG pH POC ABG pO2 ABG pO2 ABG HCO3 ABG O2 Saturation ABG Base Excess ABG Hemoglobin VBG pH Oxyhemoglobin Sodium 158 H D Potassium 3.5 L Chloride 109.3 H Carbon Dioxide 19 L D BUN 40 H Creatinine 1.5 H Glucose 760 H* POC Glucose 380 H Lactic Acid Calcium 7.3 L Phosphorus Magnesium 2.60 H Iron TIBC Direct Bilirubin AST 23738 H ALT 2156 H Alkaline Phosphatase 271 H Total Creatine Kinase 2465 H CK-MB (CK-2) 52.7 H C-Reactive Protein Total Protein 4.5 L Albumin 2.4 L Vitamin B12 Salicylates Acetaminophen Miscellaneous Test Crossmatch 03/30/19 03/30/19 03/30/19 11:08 12:25 12:57 WBC RBC Hgb Hct MCV MCH MCHC RDW Plt Count [place] % (Auto) Lymph # Seg Neuts % (Manual) Lymphocytes % (Manual) Nucleated RBC % Seg Neutrophils # Man Lymphocytes # (Manual) Monocytes # (Manual) PT INR APTT D-Dimer POC ABG pH ABG pH POC ABG pO2 ABG pO2 ABG HCO3 ABG O2 Saturation ABG Base Excess ABG Hemoglobin VBG pH Oxyhemoglobin Sodium 156 H Potassium 3.2 L Chloride 116.4 H Carbon Dioxide 21 L BUN 37 H Creatinine Glucose 162 H POC Glucose 263 H 196 H Lactic Acid Calcium 7.2 L Phosphorus Magnesium Iron TIBC Direct Bilirubin AST ALT Alkaline Phosphatase Total Creatine Kinase CK-MB (CK-2) C-Reactive Protein Total Protein Albumin Vitamin B12 Salicylates Acetaminophen Miscellaneous Test Crossmatch 03/30/19 03/30/19 03/30/19 12:57 12:57 12:57 WBC RBC Hgb Hct MCV MCH MCHC RDW Plt Count [place] % (Auto) Lymph # Seg Neuts % (Manual) Lymphocytes % (Manual) Nucleated RBC % Seg Neutrophils # Man Lymphocytes # (Manual) Monocytes # (Manual) PT 21.0 H INR 1.86 H APTT D-Dimer POC ABG pH ABG pH POC ABG pO2 ABG pO2 ABG HCO3 ABG O2 Saturation ABG Base Excess ABG Hemoglobin VBG pH Oxyhemoglobin Sodium Potassium Chloride Carbon Dioxide BUN Creatinine Glucose POC Glucose Lactic Acid 9.00 H* Calcium Phosphorus Magnesium Iron TIBC Direct Bilirubin AST ALT Alkaline Phosphatase Total Creatine Kinase CK-MB (CK-2) C-Reactive Protein 2.40 H Total Protein Albumin Vitamin B12 Salicylates Acetaminophen Miscellaneous Test Crossmatch 03/30/19 03/30/19 03/30/19 13:23 14:00 14:47 WBC RBC Hgb Hct MCV MCH MCHC RDW Plt Count [place] % (Auto) Lymph # Seg Neuts % (Manual) Lymphocytes % (Manual) Nucleated RBC % Seg Neutrophils # Man Lymphocytes # (Manual) Monocytes # (Manual) PT INR APTT D-Dimer POC ABG pH ABG pH POC ABG pO2 ABG pO2 ABG HCO3 ABG O2 Saturation ABG Base Excess ABG Hemoglobin VBG pH Oxyhemoglobin Sodium Potassium Chloride Carbon Dioxide BUN Creatinine Glucose POC Glucose 176 H 245 H Lactic Acid Calcium Phosphorus Magnesium Iron TIBC Direct Bilirubin AST ALT Alkaline Phosphatase Total Creatine Kinase CK-MB (CK-2) C-Reactive Protein Total Protein Albumin Vitamin B12 Salicylates Acetaminophen Miscellaneous Test Flexitest 1 H Crossmatch 03/30/19 03/30/19 03/30/19 16:11 17:11 17:46 WBC RBC Hgb Hct MCV MCH MCHC RDW Plt Count [place] % (Auto) Lymph # Seg Neuts % (Manual) Lymphocytes % (Manual) Nucleated RBC % Seg Neutrophils # Man Lymphocytes # (Manual) Monocytes # (Manual) PT INR APTT D-Dimer POC ABG pH ABG pH POC ABG pO2 ABG pO2 ABG HCO3 ABG O2 Saturation ABG Base Excess ABG Hemoglobin VBG pH Oxyhemoglobin Sodium Potassium Chloride Carbon Dioxide BUN Creatinine Glucose POC Glucose 181 H 167 H 125 H Lactic Acid Calcium Phosphorus Magnesium Iron TIBC Direct Bilirubin AST ALT Alkaline Phosphatase Total Creatine Kinase CK-MB (CK-2) C-Reactive Protein Total Protein Albumin Vitamin B12 Salicylates Acetaminophen Miscellaneous Test Crossmatch 03/30/19 03/30/19 03/30/19 18:59 21:31 22:19 WBC RBC Hgb Hct MCV MCH MCHC RDW Plt Count [place] % (Auto) Lymph # Seg Neuts % (Manual) Lymphocytes % (Manual) Nucleated RBC % Seg Neutrophils # Man Lymphocytes # (Manual) Monocytes # (Manual) PT INR APTT D-Dimer POC ABG pH ABG pH POC ABG pO2 ABG pO2 ABG HCO3 ABG O2 Saturation ABG Base Excess ABG Hemoglobin VBG pH Oxyhemoglobin Sodium Potassium Chloride Carbon Dioxide BUN Creatinine Glucose POC Glucose 140 H 166 H 115 H Lactic Acid Calcium Phosphorus Magnesium Iron TIBC Direct Bilirubin AST ALT Alkaline Phosphatase Total Creatine Kinase CK-MB (CK-2) C-Reactive Protein Total Protein Albumin Vitamin B12 Salicylates Acetaminophen Miscellaneous Test Crossmatch 03/30/19 03/30/19 03/30/19 23:13 Unknown Unknown WBC RBC Hgb Hct MCV MCH MCHC RDW Plt Count [place] % (Auto) Lymph # Seg Neuts % (Manual) Lymphocytes % (Manual) Nucleated RBC % Seg Neutrophils # Man Lymphocytes # (Manual) Monocytes # (Manual) PT INR APTT D-Dimer POC ABG pH ABG pH POC ABG pO2 ABG pO2 47.8 L ABG HCO3 18.8 L ABG O2 Saturation 83.8 L ABG Base Excess -5.4 L ABG Hemoglobin 6.8 L VBG pH Oxyhemoglobin 81.8 L Sodium 157 H Potassium 3.3 L Chloride 117.9 H Carbon Dioxide 20 L BUN 36 H Creatinine Glucose 150 H POC Glucose 112 H Lactic Acid Calcium 7.2 L Phosphorus Magnesium Iron TIBC Direct Bilirubin AST ALT Alkaline Phosphatase Total Creatine Kinase CK-MB (CK-2) C-Reactive Protein Total Protein Albumin Vitamin B12 Salicylates Acetaminophen Miscellaneous Test Crossmatch 03/30/19 03/30/19 03/31/19 Unknown Unknown 00:03 WBC RBC Hgb Hct MCV MCH MCHC RDW Plt Count [place] % (Auto) Lymph # Seg Neuts % (Manual) Lymphocytes % (Manual) Nucleated RBC % Seg Neutrophils # Man Lymphocytes # (Manual) Monocytes # (Manual) PT INR APTT D-Dimer POC ABG pH ABG pH POC ABG pO2 ABG pO2 ABG HCO3 ABG O2 Saturation ABG Base Excess ABG Hemoglobin VBG pH Oxyhemoglobin Sodium Potassium Chloride Carbon Dioxide BUN Creatinine Glucose POC Glucose 188 H Lactic Acid Calcium Phosphorus Magnesium Iron TIBC Direct Bilirubin AST ALT Alkaline Phosphatase Total Creatine Kinase CK-MB (CK-2) C-Reactive Protein Total Protein Albumin Vitamin B12 Salicylates 0.8 L Acetaminophen < 5.0 L Miscellaneous Test Crossmatch 03/31/19 03/31/19 03/31/19 01:18 03:07 03:50 WBC RBC Hgb Hct MCV MCH MCHC RDW Plt Count [place] % (Auto) Lymph # Seg Neuts % (Manual) Lymphocytes % (Manual) Nucleated RBC % Seg Neutrophils # Man Lymphocytes # (Manual) Monocytes # (Manual) PT INR APTT D-Dimer POC ABG pH ABG pH 7.525 H POC ABG pO2 ABG pO2 178.0 H ABG HCO3 19.5 L ABG O2 Saturation 99.2 H ABG Base Excess -3.1 L ABG Hemoglobin 5.8 L VBG pH Oxyhemoglobin Sodium Potassium Chloride Carbon Dioxide BUN Creatinine Glucose POC Glucose 114 H 107 H Lactic Acid Calcium Phosphorus Magnesium Iron TIBC Direct Bilirubin AST ALT Alkaline Phosphatase Total Creatine Kinase CK-MB (CK-2) C-Reactive Protein Total Protein Albumin Vitamin B12 Salicylates Acetaminophen Miscellaneous Test Crossmatch 03/31/19 03/31/19 03/31/19 03:51 03:51 04:05 WBC RBC 1.89 L Hgb 6.1 L Hct 18.2 L* MCV MCH MCHC RDW 17.7 H Plt Count 89 L [place] % (Auto) Lymph # Seg Neuts % (Manual) 86.0 H Lymphocytes % (Manual) 10.0 L Nucleated RBC % 1.0 H Seg Neutrophils # Man Lymphocytes # (Manual) 0.7 L Monocytes # (Manual) PT INR APTT D-Dimer POC ABG pH ABG pH POC ABG pO2 ABG pO2 ABG HCO3 ABG O2 Saturation ABG Base Excess ABG Hemoglobin VBG pH Oxyhemoglobin Sodium 151 H Potassium 3.2 L Chloride 119.4 H Carbon Dioxide 17 L BUN 35 H Creatinine Glucose 139 H POC Glucose 153 H Lactic Acid Calcium 7.1 L Phosphorus Magnesium Iron TIBC Direct Bilirubin AST ALT Alkaline Phosphatase Total Creatine Kinase CK-MB (CK-2) C-Reactive Protein Total Protein Albumin Vitamin B12 Salicylates Acetaminophen Miscellaneous Test Crossmatch 03/31/19 03/31/19 03/31/19 05:05 05:35 06:23 WBC RBC Hgb Hct MCV MCH MCHC RDW Plt Count [place] % (Auto) Lymph # Seg Neuts % (Manual) Lymphocytes % (Manual) Nucleated RBC % Seg Neutrophils # Man Lymphocytes # (Manual) Monocytes # (Manual) PT INR APTT D-Dimer POC ABG pH ABG pH POC ABG pO2 ABG pO2 ABG HCO3 ABG O2 Saturation ABG Base Excess ABG Hemoglobin VBG pH Oxyhemoglobin Sodium Potassium Chloride Carbon Dioxide BUN Creatinine Glucose POC Glucose 176 H 133 H Lactic Acid 3.20 H* Calcium Phosphorus Magnesium Iron TIBC Direct Bilirubin AST ALT Alkaline Phosphatase Total Creatine Kinase CK-MB (CK-2) C-Reactive Protein Total Protein Albumin Vitamin B12 Salicylates Acetaminophen Miscellaneous Test Crossmatch 03/31/19 03/31/19 03/31/19 07:50 07:51 08:20 WBC RBC Hgb Hct MCV MCH MCHC RDW Plt Count [place] % (Auto) Lymph # Seg Neuts % (Manual) Lymphocytes % (Manual) Nucleated RBC % Seg Neutrophils # Man Lymphocytes # (Manual) Monocytes # (Manual) PT INR APTT D-Dimer POC ABG pH ABG pH POC ABG pO2 ABG pO2 ABG HCO3 ABG O2 Saturation ABG Base Excess ABG Hemoglobin VBG pH Oxyhemoglobin Sodium Potassium Chloride Carbon Dioxide BUN Creatinine Glucose POC Glucose 135 H Lactic Acid 3.30 H* Calcium Phosphorus Magnesium Iron 26 L TIBC 193 L Direct Bilirubin AST ALT Alkaline Phosphatase Total Creatine Kinase CK-MB (CK-2) C-Reactive Protein Total Protein Albumin Vitamin B12 Salicylates Acetaminophen Miscellaneous Test Crossmatch 09/07/19 09/07/19 09/07/19 08:20 08:20 09:06 WBC RBC Hgb Hct MCV MCH MCHC RDW Plt Count [place] % (Auto) Lymph # Seg Neuts % (Manual) Lymphocytes % (Manual) Nucleated RBC % Seg Neutrophils # Man Lymphocytes # (Manual) Monocytes # (Manual) PT INR APTT D-Dimer POC ABG pH ABG pH POC ABG pO2 ABG pO2 ABG HCO3 ABG O2 Saturation ABG Base Excess ABG Hemoglobin VBG pH Oxyhemoglobin Sodium 153 H Potassium 3.0 L Chloride 118.9 H Carbon Dioxide 18 L BUN 37 H Creatinine Glucose 132 H POC Glucose 145 H Lactic Acid Calcium 7.1 L Phosphorus Magnesium Iron TIBC Direct Bilirubin AST ALT Alkaline Phosphatase Total Creatine Kinase CK-MB (CK-2) C-Reactive Protein Total Protein Albumin Vitamin B12 > 2000 H Salicylates Acetaminophen Miscellaneous Test Crossmatch 03/31/19 03/31/19 03/31/19 10:47 11:49 13:04 WBC RBC Hgb Hct MCV MCH MCHC RDW Plt Count [place] % (Auto) Lymph # Seg Neuts % (Manual) Lymphocytes % (Manual) Nucleated RBC % Seg Neutrophils # Man Lymphocytes # (Manual) Monocytes # (Manual) PT INR APTT D-Dimer POC ABG pH ABG pH POC ABG pO2 ABG pO2 ABG HCO3 ABG O2 Saturation ABG Base Excess ABG Hemoglobin VBG pH Oxyhemoglobin Sodium Potassium Chloride Carbon Dioxide BUN Creatinine Glucose POC Glucose 153 H 174 H 214 H Lactic Acid Calcium Phosphorus Magnesium Iron TIBC Direct Bilirubin AST ALT Alkaline Phosphatase Total Creatine Kinase CK-MB (CK-2) C-Reactive Protein Total Protein Albumin Vitamin B12 Salicylates Acetaminophen Miscellaneous Test Crossmatch 03/31/19 03/31/19 03/31/19 13:42 15:08 16:08 WBC RBC Hgb Hct MCV MCH MCHC RDW Plt Count [place] % (Auto) Lymph # Seg Neuts % (Manual) Lymphocytes % (Manual) Nucleated RBC % Seg Neutrophils # Man Lymphocytes # (Manual) Monocytes # (Manual) PT INR APTT D-Dimer POC ABG pH ABG pH POC ABG pO2 ABG pO2 ABG HCO3 ABG O2 Saturation ABG Base Excess ABG Hemoglobin VBG pH Oxyhemoglobin Sodium Potassium Chloride Carbon Dioxide BUN Creatinine Glucose POC Glucose 186 H 136 H 150 H Lactic Acid Calcium Phosphorus Magnesium Iron TIBC Direct Bilirubin AST ALT Alkaline Phosphatase Total Creatine Kinase CK-MB (CK-2) C-Reactive Protein Total Protein Albumin Vitamin B12 Salicylates Acetaminophen Miscellaneous Test Crossmatch 03/31/19 03/31/19 03/31/19 17:11 17:30 17:30 WBC RBC Hgb 7.7 L Hct 23.0 L MCV MCH MCHC RDW Plt Count [place] % (Auto) Lymph # Seg Neuts % (Manual) Lymphocytes % (Manual) Nucleated RBC % Seg Neutrophils # Man Lymphocytes # (Manual) Monocytes # (Manual) PT INR APTT D-Dimer POC ABG pH ABG pH POC ABG pO2 ABG pO2 ABG HCO3 ABG O2 Saturation ABG Base Excess ABG Hemoglobin VBG pH Oxyhemoglobin Sodium 153 H Potassium 3.5 L Chloride 119.3 H Carbon Dioxide 20 L BUN 34 H Creatinine Glucose 162 H POC Glucose 140 H Lactic Acid Calcium 7.6 L Phosphorus Magnesium Iron TIBC Direct Bilirubin AST ALT Alkaline Phosphatase Total Creatine Kinase CK-MB (CK-2) C-Reactive Protein Total Protein Albumin Vitamin B12 Salicylates Acetaminophen Miscellaneous Test Crossmatch 03/31/19 03/31/19 03/31/19 17:59 18:58 20:28 WBC RBC Hgb Hct MCV MCH MCHC RDW Plt Count [place] % (Auto) Lymph # Seg Neuts % (Manual) Lymphocytes % (Manual) Nucleated RBC % Seg Neutrophils # Man Lymphocytes # (Manual) Monocytes # (Manual) PT INR APTT D-Dimer POC ABG pH ABG pH POC ABG pO2 ABG pO2 ABG HCO3 ABG O2 Saturation ABG Base Excess ABG Hemoglobin VBG pH Oxyhemoglobin Sodium Potassium Chloride Carbon Dioxide BUN Creatinine Glucose POC Glucose 156 H 152 H 138 H Lactic Acid Calcium Phosphorus Magnesium Iron TIBC Direct Bilirubin AST ALT Alkaline Phosphatase Total Creatine Kinase CK-MB (CK-2) C-Reactive Protein Total Protein Albumin Vitamin B12 Salicylates Acetaminophen Miscellaneous Test Crossmatch 03/31/19 03/31/19 03/31/19 21:09 22:15 23:10 WBC RBC Hgb Hct MCV MCH MCHC RDW Plt Count [place] % (Auto) Lymph # Seg Neuts % (Manual) Lymphocytes % (Manual) Nucleated RBC % Seg Neutrophils # Man Lymphocytes # (Manual) Monocytes # (Manual) PT INR APTT D-Dimer POC ABG pH ABG pH POC ABG pO2 ABG pO2 ABG HCO3 ABG O2 Saturation ABG Base Excess ABG Hemoglobin VBG pH Oxyhemoglobin Sodium Potassium Chloride Carbon Dioxide BUN Creatinine Glucose POC Glucose 136 H 137 H 148 H Lactic Acid Calcium Phosphorus Magnesium Iron TIBC Direct Bilirubin AST ALT Alkaline Phosphatase Total Creatine Kinase CK-MB (CK-2) C-Reactive Protein Total Protein Albumin Vitamin B12 Salicylates Acetaminophen Miscellaneous Test Crossmatch 04/01/19 04/01/19 04/01/19 00:05 01:17 02:11 WBC RBC Hgb Hct MCV MCH MCHC RDW Plt Count [place] % (Auto) Lymph # Seg Neuts % (Manual) Lymphocytes % (Manual) Nucleated RBC % Seg Neutrophils # Man Lymphocytes # (Manual) Monocytes # (Manual) PT INR APTT D-Dimer POC ABG pH ABG pH POC ABG pO2 ABG pO2 ABG HCO3 ABG O2 Saturation ABG Base Excess ABG Hemoglobin VBG pH Oxyhemoglobin Sodium Potassium Chloride Carbon Dioxide BUN Creatinine Glucose POC Glucose 143 H 151 H 155 H Lactic Acid Calcium Phosphorus Magnesium Iron TIBC Direct Bilirubin AST ALT Alkaline Phosphatase Total Creatine Kinase CK-MB (CK-2) C-Reactive Protein Total Protein Albumin Vitamin B12 Salicylates Acetaminophen Miscellaneous Test Crossmatch 04/01/19 04/01/19 04/01/19 03:12 04:03 04:16 WBC RBC Hgb Hct MCV MCH MCHC RDW Plt Count [place] % (Auto) Lymph # Seg Neuts % (Manual) Lymphocytes % (Manual) Nucleated RBC % Seg Neutrophils # Man Lymphocytes # (Manual) Monocytes # (Manual) PT INR APTT D-Dimer POC ABG pH ABG pH POC ABG pO2 ABG pO2 ABG HCO3 ABG O2 Saturation ABG Base Excess ABG Hemoglobin VBG pH Oxyhemoglobin Sodium Potassium Chloride Carbon Dioxide BUN Creatinine Glucose POC Glucose 140 H 143 H 142 H Lactic Acid Calcium Phosphorus Magnesium Iron TIBC Direct Bilirubin AST ALT Alkaline Phosphatase Total Creatine Kinase CK-MB (CK-2) C-Reactive Protein Total Protein Albumin Vitamin B12 Salicylates Acetaminophen Miscellaneous Test Crossmatch 04/01/19 04/01/19 04/01/19 05:01 05:01 05:08 WBC RBC 2.05 L Hgb 6.8 L Hct 20.5 L MCV 100 H MCH 33 H MCHC RDW 17.7 H Plt Count 53 L [place] % (Auto) Lymph # Seg Neuts % (Manual) 71.0 H Lymphocytes % (Manual) Nucleated RBC % Seg Neutrophils # Man Lymphocytes # (Manual) Monocytes # (Manual) PT INR APTT D-Dimer POC ABG pH ABG pH POC ABG pO2 ABG pO2 ABG HCO3 ABG O2 Saturation ABG Base Excess ABG Hemoglobin VBG pH Oxyhemoglobin Sodium Potassium Chloride Carbon Dioxide BUN Creatinine Glucose POC Glucose 119 H Lactic Acid Calcium Phosphorus Magnesium Iron TIBC Direct Bilirubin 0.3 H AST 4601 H ALT 1542 H Alkaline Phosphatase 185 H Total Creatine Kinase CK-MB (CK-2) C-Reactive Protein Total Protein 3.8 L Albumin 1.6 L Vitamin B12 Salicylates Acetaminophen Miscellaneous Test Crossmatch 04/01/19 04/01/19 04/01/19 05:23 06:37 08:15 WBC RBC Hgb Hct MCV MCH MCHC RDW Plt Count [place] % (Auto) Lymph # Seg Neuts % (Manual) Lymphocytes % (Manual) Nucleated RBC % Seg Neutrophils # Man Lymphocytes # (Manual) Monocytes # (Manual) PT INR APTT D-Dimer POC ABG pH ABG pH POC ABG pO2 ABG pO2 ABG HCO3 ABG O2 Saturation ABG Base Excess ABG Hemoglobin VBG pH Oxyhemoglobin Sodium Potassium Chloride Carbon Dioxide BUN Creatinine Glucose POC Glucose 115 H 124 H 138 H Lactic Acid Calcium Phosphorus Magnesium Iron TIBC Direct Bilirubin AST ALT Alkaline Phosphatase Total Creatine Kinase CK-MB (CK-2) C-Reactive Protein Total Protein Albumin Vitamin B12 Salicylates Acetaminophen Miscellaneous Test Crossmatch 04/01/19 04/01/19 04/01/19 09:50 10:10 10:31 WBC RBC Hgb 6.5 L Hct 19.2 L* MCV MCH MCHC RDW Plt Count [place] % (Auto) Lymph # Seg Neuts % (Manual) Lymphocytes % (Manual) Nucleated RBC % Seg Neutrophils # Man Lymphocytes # (Manual) Monocytes # (Manual) PT INR APTT D-Dimer POC ABG pH ABG pH POC ABG pO2 ABG pO2 ABG HCO3 ABG O2 Saturation ABG Base Excess ABG Hemoglobin VBG pH Oxyhemoglobin Sodium 149 H Potassium 3.5 L Chloride 119.9 H Carbon Dioxide 21 L BUN 33 H Creatinine 0.5 L Glucose 142 H POC Glucose 185 H Lactic Acid Calcium 7.3 L Phosphorus Magnesium Iron TIBC Direct Bilirubin AST 3686 H ALT 1440 H Alkaline Phosphatase 185 H Total Creatine Kinase CK-MB (CK-2) C-Reactive Protein Total Protein 3.7 L Albumin 1.8 L Vitamin B12 Salicylates Acetaminophen Miscellaneous Test Crossmatch 04/01/19 04/01/19 04/01/19 11:35 13:05 14:35 WBC RBC Hgb Hct MCV MCH MCHC RDW Plt Count [place] % (Auto) Lymph # Seg Neuts % (Manual) Lymphocytes % (Manual) Nucleated RBC % Seg Neutrophils # Man Lymphocytes # (Manual) Monocytes # (Manual) PT INR APTT D-Dimer POC ABG pH ABG pH POC ABG pO2 ABG pO2 ABG HCO3 ABG O2 Saturation ABG Base Excess ABG Hemoglobin VBG pH Oxyhemoglobin Sodium Potassium Chloride Carbon Dioxide BUN Creatinine Glucose POC Glucose 201 H 169 H 134 H Lactic Acid Calcium Phosphorus Magnesium Iron TIBC Direct Bilirubin AST ALT Alkaline Phosphatase Total Creatine Kinase CK-MB (CK-2) C-Reactive Protein Total Protein Albumin Vitamin B12 Salicylates Acetaminophen Miscellaneous Test Crossmatch 04/01/19 04/01/19 04/01/19 17:13 17:14 18:30 WBC RBC Hgb Hct MCV MCH MCHC RDW Plt Count [place] % (Auto) Lymph # Seg Neuts % (Manual) Lymphocytes % (Manual) Nucleated RBC % Seg Neutrophils # Man Lymphocytes # (Manual) Monocytes # (Manual) PT INR APTT D-Dimer 5203.68 H POC ABG pH ABG pH POC ABG pO2 ABG pO2 ABG HCO3 ABG O2 Saturation ABG Base Excess ABG Hemoglobin VBG pH Oxyhemoglobin Sodium Potassium Chloride Carbon Dioxide BUN Creatinine Glucose POC Glucose 69 L 128 H Lactic Acid Calcium Phosphorus Magnesium Iron TIBC Direct Bilirubin AST ALT Alkaline Phosphatase Total Creatine Kinase CK-MB (CK-2) C-Reactive Protein Total Protein Albumin Vitamin B12 Salicylates Acetaminophen Miscellaneous Test Crossmatch 04/01/19 04/01/19 04/02/19 22:50 Unknown 03:40 WBC RBC Hgb Hct MCV MCH MCHC RDW Plt Count [place] % (Auto) Lymph # Seg Neuts % (Manual) Lymphocytes % (Manual) Nucleated RBC % Seg Neutrophils # Man Lymphocytes # (Manual) Monocytes # (Manual) PT INR APTT D-Dimer POC ABG pH ABG pH POC ABG pO2 ABG pO2 78.3 L 142.8 H ABG HCO3 15.5 L ABG O2 Saturation ABG Base Excess -3.5 L -8.2 L ABG Hemoglobin 6.8 L 8.2 L VBG pH Oxyhemoglobin 94.3 L Sodium Potassium Chloride Carbon Dioxide BUN Creatinine Glucose POC Glucose 342 H Lactic Acid Calcium Phosphorus Magnesium Iron TIBC Direct Bilirubin AST ALT Alkaline Phosphatase Total Creatine Kinase CK-MB (CK-2) C-Reactive Protein Total Protein Albumin Vitamin B12 Salicylates Acetaminophen Miscellaneous Test Crossmatch 04/02/19 04/02/19 04/02/19 03:49 06:50 07:48 WBC RBC 2.65 L Hgb 8.6 L Hct 25.1 L MCV MCH MCHC RDW 17.6 H Plt Count 48 L [place] % (Auto) Lymph # Seg Neuts % (Manual) Lymphocytes % (Manual) Nucleated RBC % Seg Neutrophils # Man Lymphocytes # (Manual) Monocytes # (Manual) PT INR APTT D-Dimer POC ABG pH ABG pH POC ABG pO2 ABG pO2 ABG HCO3 ABG O2 Saturation ABG Base Excess ABG Hemoglobin VBG pH Oxyhemoglobin Sodium Potassium Chloride Carbon Dioxide BUN Creatinine Glucose POC Glucose 247 H 200 H Lactic Acid Calcium Phosphorus Magnesium Iron TIBC Direct Bilirubin AST ALT Alkaline Phosphatase Total Creatine Kinase CK-MB (CK-2) C-Reactive Protein Total Protein Albumin Vitamin B12 Salicylates Acetaminophen Miscellaneous Test Crossmatch 04/02/19 04/02/19 04/02/19 07:48 11:18 14:07 WBC RBC Hgb Hct MCV MCH MCHC RDW Plt Count [place] % (Auto) Lymph # Seg Neuts % (Manual) Lymphocytes % (Manual) Nucleated RBC % Seg Neutrophils # Man Lymphocytes # (Manual) Monocytes # (Manual) PT INR APTT D-Dimer POC ABG pH ABG pH POC ABG pO2 ABG pO2 ABG HCO3 ABG O2 Saturation ABG Base Excess ABG Hemoglobin VBG pH Oxyhemoglobin Sodium Potassium 3.5 L Chloride 115.7 H Carbon Dioxide 19 L BUN 29 H Creatinine 0.5 L Glucose 159 H POC Glucose 154 H 149 H Lactic Acid Calcium 7.5 L Phosphorus Magnesium Iron TIBC Direct Bilirubin AST 1418 H ALT 1134 H Alkaline Phosphatase 242 H Total Creatine Kinase CK-MB (CK-2) C-Reactive Protein Total Protein 4.2 L Albumin 2.1 L Vitamin B12 Salicylates Acetaminophen Miscellaneous Test Crossmatch 0904/02/19 04/02/19 18:09 19:46 23:05 WBC RBC Hgb Hct MCV MCH MCHC RDW Plt Count [place] % (Auto) Lymph # Seg Neuts % (Manual) Lymphocytes % (Manual) Nucleated RBC % Seg Neutrophils # Man Lymphocytes # (Manual) Monocytes # (Manual) PT INR APTT D-Dimer POC ABG pH ABG pH POC ABG pO2 ABG pO2 ABG HCO3 ABG O2 Saturation ABG Base Excess ABG Hemoglobin VBG pH Oxyhemoglobin Sodium Potassium Chloride Carbon Dioxide BUN Creatinine Glucose POC Glucose 188 H 209 H 247 H Lactic Acid Calcium Phosphorus Magnesium Iron TIBC Direct Bilirubin AST ALT Alkaline Phosphatase Total Creatine Kinase CK-MB (CK-2) C-Reactive Protein Total Protein Albumin Vitamin B12 Salicylates Acetaminophen Miscellaneous Test Crossmatch 04/03/19 04/03/19 04/03/19 02:58 03:40 03:40 WBC RBC 2.87 L Hgb 9.3 L Hct 27.0 L MCV MCH MCHC RDW 17.2 H Plt Count 65 L [place] % (Auto) 9.8 H Lymph # 1.1 L Seg Neuts % (Manual) Lymphocytes % (Manual) Nucleated RBC % Seg Neutrophils # Man Lymphocytes # (Manual) Monocytes # (Manual) PT INR APTT D-Dimer POC ABG pH ABG pH POC ABG pO2 ABG pO2 ABG HCO3 ABG O2 Saturation ABG Base Excess ABG Hemoglobin VBG pH Oxyhemoglobin Sodium 147 H Potassium 3.5 L Chloride 116.7 H Carbon Dioxide 18 L BUN Creatinine 0.4 L Glucose 150 H POC Glucose 166 H Lactic Acid Calcium 8.1 L Phosphorus 2.20 L Magnesium Iron TIBC Direct Bilirubin AST 594 H ALT 861 H Alkaline Phosphatase 299 H Total Creatine Kinase CK-MB (CK-2) C-Reactive Protein Total Protein 4.4 L Albumin 2.1 L Vitamin B12 Salicylates Acetaminophen Miscellaneous Test Crossmatch 04/03/19 04/03/19 04/03/19 05:35 07:02 08:23 WBC RBC Hgb Hct MCV MCH MCHC RDW Plt Count [place] % (Auto) Lymph # Seg Neuts % (Manual) Lymphocytes % (Manual) Nucleated RBC % Seg Neutrophils # Man Lymphocytes # (Manual) Monocytes # (Manual) PT INR APTT D-Dimer POC ABG pH ABG pH POC ABG pO2 ABG pO2 97.7 H ABG HCO3 19.3 L ABG O2 Saturation ABG Base Excess -5.0 L ABG Hemoglobin 8.0 L VBG pH Oxyhemoglobin Sodium Potassium Chloride Carbon Dioxide BUN Creatinine Glucose POC Glucose 135 H 132 H Lactic Acid Calcium Phosphorus Magnesium Iron TIBC Direct Bilirubin AST ALT Alkaline Phosphatase Total Creatine Kinase CK-MB (CK-2) C-Reactive Protein Total Protein Albumin Vitamin B12 Salicylates Acetaminophen Miscellaneous Test Crossmatch 04/03/19 04/03/19 04/03/19 11:58 15:11 17:53 WBC RBC Hgb Hct MCV MCH MCHC RDW Plt Count [place] % (Auto) Lymph # Seg Neuts % (Manual) Lymphocytes % (Manual) Nucleated RBC % Seg Neutrophils # Man Lymphocytes # (Manual) Monocytes # (Manual) PT INR APTT D-Dimer POC ABG pH ABG pH POC ABG pO2 ABG pO2 ABG HCO3 ABG O2 Saturation ABG Base Excess ABG Hemoglobin VBG pH Oxyhemoglobin Sodium Potassium Chloride Carbon Dioxide BUN Creatinine Glucose POC Glucose 179 H 213 H 223 H Lactic Acid Calcium Phosphorus Magnesium Iron TIBC Direct Bilirubin AST ALT Alkaline Phosphatase Total Creatine Kinase CK-MB (CK-2) C-Reactive Protein Total Protein Albumin Vitamin B12 Salicylates Acetaminophen Miscellaneous Test Crossmatch 04/03/19 04/04/19 04/04/19 23:06 02:36 06:41 WBC RBC Hgb Hct MCV MCH MCHC RDW Plt Count [place] % (Auto) Lymph # Seg Neuts % (Manual) Lymphocytes % (Manual) Nucleated RBC % Seg Neutrophils # Man Lymphocytes # (Manual) Monocytes # (Manual) PT INR APTT D-Dimer POC ABG pH ABG pH POC ABG pO2 ABG pO2 ABG HCO3 ABG O2 Saturation ABG Base Excess ABG Hemoglobin VBG pH Oxyhemoglobin Sodium Potassium Chloride Carbon Dioxide BUN Creatinine Glucose POC Glucose 189 H 157 H 131 H Lactic Acid Calcium Phosphorus Magnesium Iron TIBC Direct Bilirubin AST ALT Alkaline Phosphatase Total Creatine Kinase CK-MB (CK-2) C-Reactive Protein Total Protein Albumin Vitamin B12 Salicylates Acetaminophen Miscellaneous Test Crossmatch 04/04/19 04/04/19 04/04/19 11:42 15:45 18:21 WBC RBC Hgb Hct MCV MCH MCHC RDW Plt Count [place] % (Auto) Lymph # Seg Neuts % (Manual) Lymphocytes % (Manual) Nucleated RBC % Seg Neutrophils # Man Lymphocytes # (Manual) Monocytes # (Manual) PT INR APTT D-Dimer POC ABG pH ABG pH POC ABG pO2 ABG pO2 ABG HCO3 ABG O2 Saturation ABG Base Excess ABG Hemoglobin VBG pH Oxyhemoglobin Sodium Potassium Chloride Carbon Dioxide BUN Creatinine Glucose POC Glucose 233 H 236 H 255 H Lactic Acid Calcium Phosphorus Magnesium Iron TIBC Direct Bilirubin AST ALT Alkaline Phosphatase Total Creatine Kinase CK-MB (CK-2) C-Reactive Protein Total Protein Albumin Vitamin B12 Salicylates Acetaminophen Miscellaneous Test Crossmatch 04/04/19 04/05/19 04/05/19 21:21 03:06 06:05 WBC RBC 2.68 L Hgb 8.5 L Hct 26.3 L MCV 98 H MCH MCHC RDW 17.4 H Plt Count [place] % (Auto) Lymph # Seg Neuts % (Manual) Lymphocytes % (Manual) Nucleated RBC % Seg Neutrophils # Man Lymphocytes # (Manual) Monocytes # (Manual) PT INR APTT D-Dimer POC ABG pH ABG pH POC ABG pO2 ABG pO2 ABG HCO3 ABG O2 Saturation ABG Base Excess ABG Hemoglobin VBG pH Oxyhemoglobin Sodium Potassium Chloride Carbon Dioxide BUN Creatinine Glucose POC Glucose 132 H 161 H Lactic Acid Calcium Phosphorus Magnesium Iron TIBC Direct Bilirubin AST ALT Alkaline Phosphatase Total Creatine Kinase CK-MB (CK-2) C-Reactive Protein Total Protein Albumin Vitamin B12 Salicylates Acetaminophen Miscellaneous Test Crossmatch 04/05/19 04/05/19 04/05/19 06:05 06:49 10:23 WBC RBC Hgb Hct MCV MCH MCHC RDW Plt Count [place] % (Auto) Lymph # Seg Neuts % (Manual) Lymphocytes % (Manual) Nucleated RBC % Seg Neutrophils # Man Lymphocytes # (Manual) Monocytes # (Manual) PT INR APTT D-Dimer POC ABG pH ABG pH POC ABG pO2 ABG pO2 ABG HCO3 ABG O2 Saturation ABG Base Excess ABG Hemoglobin VBG pH Oxyhemoglobin Sodium Potassium Chloride 112.5 H Carbon Dioxide BUN Creatinine 0.2 L Glucose 237 H POC Glucose 283 H 296 H Lactic Acid Calcium 7.9 L Phosphorus Magnesium Iron TIBC Direct Bilirubin AST ALT Alkaline Phosphatase Total Creatine Kinase CK-MB (CK-2) C-Reactive Protein Total Protein Albumin Vitamin B12 Salicylates Acetaminophen Miscellaneous Test Crossmatch 04/05/19 04/05/19 04/05/19 14:46 18:19 20:35 WBC RBC Hgb Hct MCV MCH MCHC RDW Plt Count [place] % (Auto) Lymph # Seg Neuts % (Manual) Lymphocytes % (Manual) Nucleated RBC % Seg Neutrophils # Man Lymphocytes # (Manual) Monocytes # (Manual) PT INR APTT D-Dimer POC ABG pH ABG pH POC ABG pO2 ABG pO2 ABG HCO3 ABG O2 Saturation ABG Base Excess ABG Hemoglobin VBG pH Oxyhemoglobin Sodium Potassium Chloride Carbon Dioxide BUN Creatinine Glucose POC Glucose 225 H 259 H 236 H Lactic Acid Calcium Phosphorus Magnesium Iron TIBC Direct Bilirubin AST ALT Alkaline Phosphatase Total Creatine Kinase CK-MB (CK-2) C-Reactive Protein Total Protein Albumin Vitamin B12 Salicylates Acetaminophen Miscellaneous Test Crossmatch 04/05/19 04/06/19 04/06/19 23:11 00:06 03:14 WBC RBC Hgb Hct MCV MCH MCHC RDW Plt Count [place] % (Auto) Lymph # Seg Neuts % (Manual) Lymphocytes % (Manual) Nucleated RBC % Seg Neutrophils # Man Lymphocytes # (Manual) Monocytes # (Manual) PT INR APTT D-Dimer 4526.86 H POC ABG pH ABG pH POC ABG pO2 ABG pO2 ABG HCO3 ABG O2 Saturation ABG Base Excess ABG Hemoglobin VBG pH Oxyhemoglobin Sodium Potassium Chloride Carbon Dioxide BUN Creatinine Glucose POC Glucose 205 H 228 H Lactic Acid Calcium Phosphorus Magnesium Iron TIBC Direct Bilirubin AST ALT Alkaline Phosphatase Total Creatine Kinase CK-MB (CK-2) C-Reactive Protein Total Protein Albumin Vitamin B12 Salicylates Acetaminophen Miscellaneous Test Crossmatch 04/06/19 04/06/19 04/06/19 05:20 05:20 07:57 WBC 15.1 H RBC 2.90 L Hgb 9.1 L Hct 28.0 L MCV MCH MCHC RDW 17.3 H Plt Count [place] % (Auto) Lymph # Seg Neuts % (Manual) Lymphocytes % (Manual) Nucleated RBC % Seg Neutrophils # Man Lymphocytes # (Manual) Monocytes # (Manual) PT INR APTT D-Dimer POC ABG pH ABG pH POC ABG pO2 ABG pO2 ABG HCO3 ABG O2 Saturation ABG Base Excess ABG Hemoglobin VBG pH Oxyhemoglobin Sodium Potassium Chloride Carbon Dioxide BUN Creatinine 0.2 L Glucose 161 H POC Glucose 191 H Lactic Acid Calcium 8.0 L Phosphorus Magnesium Iron TIBC Direct Bilirubin AST ALT Alkaline Phosphatase Total Creatine Kinase CK-MB (CK-2) C-Reactive Protein Total Protein Albumin Vitamin B12 Salicylates Acetaminophen Miscellaneous Test Crossmatch 04/06/19 04/06/19 04/06/19 12:09 18:24 22:07 WBC RBC Hgb Hct MCV MCH MCHC RDW Plt Count [place] % (Auto) Lymph # Seg Neuts % (Manual) Lymphocytes % (Manual) Nucleated RBC % Seg Neutrophils # Man Lymphocytes # (Manual) Monocytes # (Manual) PT INR APTT D-Dimer POC ABG pH ABG pH POC ABG pO2 ABG pO2 ABG HCO3 ABG O2 Saturation ABG Base Excess ABG Hemoglobin VBG pH Oxyhemoglobin Sodium Potassium Chloride Carbon Dioxide BUN Creatinine Glucose POC Glucose 143 H 161 H 140 H Lactic Acid Calcium Phosphorus Magnesium Iron TIBC Direct Bilirubin AST ALT Alkaline Phosphatase Total Creatine Kinase CK-MB (CK-2) C-Reactive Protein Total Protein Albumin Vitamin B12 Salicylates Acetaminophen Miscellaneous Test Crossmatch 04/07/19 04/07/19 04/07/19 03:00 04:30 04:30 WBC 13.0 H RBC 2.65 L Hgb 8.3 L Hct 25.5 L MCV MCH MCHC RDW 17.0 H Plt Count [place] % (Auto) Lymph # Seg Neuts % (Manual) Lymphocytes % (Manual) Nucleated RBC % Seg Neutrophils # Man Lymphocytes # (Manual) Monocytes # (Manual) PT INR APTT D-Dimer POC ABG pH ABG pH POC ABG pO2 ABG pO2 ABG HCO3 ABG O2 Saturation ABG Base Excess ABG Hemoglobin VBG pH Oxyhemoglobin Sodium Potassium Chloride Carbon Dioxide BUN Creatinine 0.2 L Glucose 208 H POC Glucose 224 H Lactic Acid Calcium 7.7 L Phosphorus Magnesium Iron TIBC Direct Bilirubin AST ALT Alkaline Phosphatase Total Creatine Kinase CK-MB (CK-2) C-Reactive Protein Total Protein Albumin Vitamin B12 Salicylates Acetaminophen Miscellaneous Test Crossmatch 04/07/19 04/07/19 04/07/19 05:47 08:27 10:33 WBC RBC Hgb Hct MCV MCH MCHC RDW Plt Count [place] % (Auto) Lymph # Seg Neuts % (Manual) Lymphocytes % (Manual) Nucleated RBC % Seg Neutrophils # Man Lymphocytes # (Manual) Monocytes # (Manual) PT INR APTT D-Dimer POC ABG pH ABG pH POC ABG pO2 ABG pO2 ABG HCO3 ABG O2 Saturation ABG Base Excess ABG Hemoglobin VBG pH Oxyhemoglobin Sodium Potassium Chloride Carbon Dioxide BUN Creatinine Glucose POC Glucose 225 H 176 H 207 H Lactic Acid Calcium Phosphorus Magnesium Iron TIBC Direct Bilirubin AST ALT Alkaline Phosphatase Total Creatine Kinase CK-MB (CK-2) C-Reactive Protein Total Protein Albumin Vitamin B12 Salicylates Acetaminophen Miscellaneous Test Crossmatch 04/07/19 04/07/19 04/07/19 14:13 18:32 22:42 WBC RBC Hgb Hct MCV MCH MCHC RDW Plt Count [place] % (Auto) Lymph # Seg Neuts % (Manual) Lymphocytes % (Manual) Nucleated RBC % Seg Neutrophils # Man Lymphocytes # (Manual) Monocytes # (Manual) PT INR APTT D-Dimer POC ABG pH ABG pH POC ABG pO2 ABG pO2 ABG HCO3 ABG O2 Saturation ABG Base Excess ABG Hemoglobin VBG pH Oxyhemoglobin Sodium Potassium Chloride Carbon Dioxide BUN Creatinine Glucose POC Glucose 219 H 227 H 238 H Lactic Acid Calcium Phosphorus Magnesium Iron TIBC Direct Bilirubin AST ALT Alkaline Phosphatase Total Creatine Kinase CK-MB (CK-2) C-Reactive Protein Total Protein Albumin Vitamin B12 Salicylates Acetaminophen Miscellaneous Test Crossmatch 04/08/19 04/08/19 02:31 05:37 WBC RBC Hgb Hct MCV MCH MCHC RDW Plt Count [place] % (Auto) Lymph # Seg Neuts % (Manual) Lymphocytes % (Manual) Nucleated RBC % Seg Neutrophils # Man Lymphocytes # (Manual) Monocytes # (Manual) PT INR APTT D-Dimer POC ABG pH ABG pH POC ABG pO2 ABG pO2 ABG HCO3 ABG O2 Saturation ABG Base Excess ABG Hemoglobin VBG pH Oxyhemoglobin Sodium Potassium Chloride Carbon Dioxide BUN Creatinine Glucose POC Glucose 194 H 194 H Lactic Acid Calcium Phosphorus Magnesium Iron TIBC Direct Bilirubin AST ALT Alkaline Phosphatase Total Creatine Kinase CK-MB (CK-2) C-Reactive Protein Total Protein Albumin Vitamin B12 Salicylates Acetaminophen Miscellaneous Test Crossmatch
[2019-04-08] MEDS: PEPCID PO SCH ×2 (10:56→22:00)
[2019-04-08] MEDS: KEPPRA PO SCH ×2 (10:56→22:00)
[2019-04-08] MEDS: SODIUM CHLORIDE FLUSH SYRINGE 10 ML IV SCH ×2 (10:57→22:00)
--- NOTE | 2019-04-08 11:25 | Progress Note ---
Assessment and Plan Cultures: 03/29 BCx: no growth 03/29 sputum Cx: C albicans 03/30/2019 MRSA nasal: negative A/P: 28 yo F PMHx T1DM admitted after receiving intubation and CPR due to non- responsiveness likely secondary to DKA 1. Sepsis - potential liver abscess v/s ischemia v/s trauma. Leukocytosis, tachycardia. 2. Aspiration pneumonia - Procal greatly elevated. Continue antibiotics. Can treat for 7 days. Jenn in sputum culture not a pathogen of the respiratory tract. 3. Liver lesion - ? abscess v/s other etiology. Awaiting additional imaging. 4. DKA - numerous metabolic derangements, per primary/ICU team 5. T1DM 6. Head lice - s/p treatment. 7. Acute encephalopathy: MRI showed anoxic brain injury. Guarded prognosis, now DNR. Recs: - continue cefepime renally dosed at 2g q8h - continue metronidazole 500mg q8h - overall guarded prognosis - ordered CBC, CMP for AM Linda Norman MD FACP [facility] ([facility] Subjective Date of service: 04/08/19 Principal diagnosis: Ac Hypoxemic Resp Failure; DKA; Severe sepsis with shock; ANGELICA Interval history: Remains unresponsive, intubated. No fever. Objective - Exam Narrative Exam: Physical Exam: Constitutional: Intubated, unresponsive Head, Ears, Nose: Normocephalic, atraumatic. External ears, nose normal Eyes: Conjunctivae/corneas clear. No icterus. No ptosis. Neck: Supple, no meningeal signs. Intubated Oral: intubated Cardiovascular: S1, S2 normal. Respiratory: Good air entry, clear to auscultation bilaterally GI: Soft, non-tender; bowel sounds normal. No peritoneal signs. Musculoskeletal: No pedal edema, no cyanosis. Skin: No rash or abscess Hem/Lymphatic: No palpable cervical or supraclavicular nodes. No lymphangitis Psych: no agitation Neurological: Intubated, unresponsive - Constitutional Vitals: Vital Signs Temp Pulse Resp BP Pulse Ox 99.6 F 128 H 20 129/87 99 04/08/19 08:00 04/08/19 09:00 04/08/19 09:00 04/08/19 09:00 04/08/19 09:00 Temperature -Last 24 Hours Temperature 99.6 F Temperature 98.3 F Temperature 98.2 F Temperature 98.4 F Temperature 98.5 F Temperature 97.9 F - Labs CBC & Chem 7: 04/07/19 04:30 04/07/19 04:30 Labs: Abnormal lab results 04/07/19 04/07/19 04/07/19 Range/Units 10:33 14:13 18:32 POC Glucose 207 H 219 H 227 H (70-105) 04/07/19 04/08/19 04/08/19 Range/Units 22:42 02:31 05:37 POC Glucose 238 H 194 H 194 H (70-105)
--- NOTE | 2019-04-08 17:45 | Progress Note ---
Assessment and Plan Acute hypoxemic respiratory failure on MVS Acute toxic metabolic encephalopathy. Diabetic ketoacidosis. Severe sepsis with shock. Possible aspiration pneumonia. History of polysubstance abuse. Leukocytosis. Elevated serum transaminases, possible shock liver. Hyponatremia related to her severe hyperglycemia. Anemia that is macrocytic. History of seizure disorder. Severe metabolic acidosis. Acute kidney injury, possibly on chronic -Continue with MVS, daily PSV trials- which she continues to tolerate. However, her mental status continues to limit safe liberation from MVS -VAP bundle addressed -Critical care bundles addressed - transfuse PRBC's prn to keep Hb >/= 7.0 g/dl - continue contact isolation - continue to follow mental status closely - continue and de-escalate anti infective's per ID recommendations( markedly elevate procalcitonin) -continue to avoid nephrotoxic agents, adjust all medications for renal function -Dose of furosemide today, patient has generalized edema Monitor renal function, hemodynamics and electrolytes with the administration of furosemide - continue daily SAT and SBT assessments as tolerated - continue enteral nutrition with glycemic control,target blood glucose 140-180 mg/dL - continue bronchodilators with pulmonary hygiene per RT - continue to wean supplemental O2 to keep O2 sats > 90% - VTE prophylaxis - Stress ulcer prophylaxis - continue empiric antibiotics; de-escalate per ID rec's and based on clinical and microbiologic data - sedation target of RASS 0 to -1 - continue Keppra for seizures - continue mobility protocols / off loading for pressure ulcer prevention - continue other care per attending / other consultants CONDITION: CRITICAL PROGNOSIS: GUARDED TO GRAVE CODE STATUS: DNAR The high probability of a clinically significant, sudden or life threatening deterioration of the [Neurology Respiratory, Cardiovascular] system(s) required my full and direct attention, intervention and personal management. The aggregate critical care time was [35] minutes. This time is in addition to time spent performing reported procedures but includes the following: [x] Data Review and interpretation [x] Patient assessment and monitoring of vital signs [x] Documentation [x] Medication orders and management Subjective Date of service: 04/08/19 Principal diagnosis: Ac Hypoxemic Resp Failure; DKA; Severe sepsis with shock; ANGELICA Interval history: Patient is seen today for: Acute Hypoxemic Resp Failure; Ac toxic metabolic encephalopathy; DKA; Severe sepsis with shock; Possible aspiration pneumonia; History of polysubstance abuse; History of seizure disorder; Acute kidney injury, possibly on chronic Seen and examined at bedside; 24hour events reviewed; nursing and respiratory care staff consulted; no adverse overnight events reported to me; resting peacefully in bed; AMS is persistent; remains off vasopressors but on MVS; no emesis or overt aspiration and no high grade fevers Objective Vital Signs - 12hr 04/08/19 04/08/19 04/08/19 06:00 07:00 08:00 Temperature 99.6 F Pulse Rate 127 H 126 H 107 H Respiratory 17 21 21 Rate Blood Pressure 135/75 125/78 131/91 O2 Sat by Pulse 97 95 99 Oximetry 04/08/19 04/08/19 04/08/19 09:00 09:20 10:00 Temperature Pulse Rate 128 H 120 H 120 H Respiratory 20 23 27 H Rate Blood Pressure 129/87 128/93 128/93 O2 Sat by Pulse 99 99 97 Oximetry 04/08/19 04/08/19 04/08/19 11:00 12:00 13:00 Temperature 98.6 F Pulse Rate 134 H 107 H 108 H Respiratory 15 25 H 19 Rate Blood Pressure 128/93 136/90 116/97 O2 Sat by Pulse 95 96 96 Oximetry 04/08/19 04/08/19 04/08/19 14:00 15:00 16:00 Temperature 98 F Pulse Rate 129 H 125 H 119 H Respiratory 22 21 27 H Rate Blood Pressure 114/90 136/90 126/84 O2 Sat by Pulse 96 95 98 Oximetry 04/08/19 17:00 Temperature Pulse Rate 119 H Respiratory 28 H Rate Blood Pressure 126/84 O2 Sat by Pulse 95 Oximetry Constitutional: no acute distress, other (young CF normocephalic and atraumatic on MVS) Eyes: non-icteric ENT: oropharynx moist, other (ETT 22-23 cm Jessi) Neck: supple, no lymphadenopathy, no JVD Effort: mildly labored Ascultation: Bilateral: rhonchi Percussion: Bilateral: not dull Cardiovascular: regular rate and rhythm, other (sinus tachycardia) Gastrointestinal: normoactive bowel sounds, soft, non-tender, non-distended Integumentary: normal Extremities: no cyanosis, pink and warm, pulses normal, no ischemia or petechiae, edema (bilateral UExt edema with skin breakdown) Neurologic: other (Obtunded, will open eyes to painful stimuli) Psychiatric: other (unable to assess) CBC and BMP: 04/07/19 04:30 04/07/19 04:30 ABG, PT/INR, D-dimer: ABG POC ABG pH 7.374 (7.35-7.45) 04/04/19 03:46 ABG pH 7.396 pH Units (7.350-7.450) 04/03/19 05:35 POC ABG pCO2 36.2 (35-45) 04/04/19 03:46 ABG pCO2 32.2 mm Hg 04/03/19 05:35 POC ABG pO2 96 (80-105) 04/04/19 03:46 ABG pO2 97.7 mm Hg (80.0-90.0) H 04/03/19 05:35 POC ABG HCO3 21.2 (22-26 mml/L) 04/04/19 03:46 POC ABG Total CO2 22 (23-27mmol/L) 04/04/19 03:46 POC ABG O2 Sat 97 04/04/19 03:46 ABG O2 Saturation 97.6 % (95.0-99.0) 04/03/19 05:35 PT/INR, D-dimer PT 13.9 Sec. (12.2-14.9) 04/01/19 17:14 INR 1.10 (0.87-1.13) 04/01/19 17:14 4526.86 ng/mlDDU (0-234) H 04/06/19 00:06 Abnormal lab findings: Abnormal Labs 03/29/19 03/29/19 03/29/19 19:11 19:20 19:20 WBC 26.7 H RBC 2.52 L Hgb 8.1 L Hct MCV 148 H MCH MCHC 22 L RDW 18.5 H Plt Count [place] % (Auto) Lymph # Seg Neuts % (Manual) 82.0 H Lymphocytes % (Manual) 7.0 L Nucleated RBC % Seg Neutrophils # Man 21.9 H Lymphocytes # (Manual) Monocytes # (Manual) 1.9 H PT 21.8 H INR 1.95 H APTT 74.5 H* D-Dimer POC ABG pH ABG pH POC ABG pO2 ABG pO2 ABG HCO3 ABG O2 Saturation ABG Base Excess ABG Hemoglobin VBG pH Oxyhemoglobin Sodium Potassium Chloride Carbon Dioxide BUN Creatinine Glucose POC Glucose > 500 H Lactic Acid Calcium Phosphorus Magnesium Iron TIBC Direct Bilirubin AST ALT Alkaline Phosphatase Total Creatine Kinase CK-MB (CK-2) C-Reactive Protein Total Protein Albumin Vitamin B12 Salicylates Acetaminophen Miscellaneous Test Crossmatch 03/29/19 03/29/19 03/29/19 19:20 19:47 20:59 WBC RBC Hgb Hct MCV MCH MCHC RDW Plt Count [place] % (Auto) Lymph # Seg Neuts % (Manual) Lymphocytes % (Manual) Nucleated RBC % Seg Neutrophils # Man Lymphocytes # (Manual) Monocytes # (Manual) PT INR APTT D-Dimer POC ABG pH 6.892 L ABG pH POC ABG pO2 236 H ABG pO2 ABG HCO3 ABG O2 Saturation ABG Base Excess ABG Hemoglobin VBG pH 6.800 L* Oxyhemoglobin Sodium 118 L* Potassium 9.0 H* Chloride 64.5 L Carbon Dioxide 7 L* BUN 53 H Creatinine 2.1 H Glucose 2196 H* POC Glucose Lactic Acid Calcium 12.4 H* Phosphorus Magnesium Iron TIBC Direct Bilirubin AST 3900 H ALT 1034 H Alkaline Phosphatase 316 H Total Creatine Kinase CK-MB (CK-2) C-Reactive Protein Total Protein 5.1 L Albumin 2.8 L Vitamin B12 Salicylates Acetaminophen Miscellaneous Test Crossmatch 03/29/19 03/29/19 03/29/19 22:45 22:45 22:45 WBC RBC Hgb Hct MCV MCH MCHC RDW Plt Count [place] % (Auto) Lymph # Seg Neuts % (Manual) Lymphocytes % (Manual) Nucleated RBC % Seg Neutrophils # Man Lymphocytes # (Manual) Monocytes # (Manual) PT INR APTT D-Dimer POC ABG pH ABG pH POC ABG pO2 ABG pO2 ABG HCO3 ABG O2 Saturation ABG Base Excess ABG Hemoglobin VBG pH Oxyhemoglobin Sodium 132 L D Potassium 7.0 H* Chloride 84.3 L Carbon Dioxide 3 L* BUN 48 H Creatinine 1.8 H Glucose 1779 H* POC Glucose Lactic Acid Calcium Phosphorus 21.70 H Magnesium 4.70 H Iron TIBC Direct Bilirubin AST ALT Alkaline Phosphatase Total Creatine Kinase 363 H CK-MB (CK-2) C-Reactive Protein Total Protein Albumin Vitamin B12 Salicylates Acetaminophen Miscellaneous Test Crossmatch 03/29/19 03/29/1903/30/19 Unknown Unknown 00:11 WBC RBC Hgb Hct MCV MCH MCHC RDW Plt Count [place] % (Auto) Lymph # Seg Neuts % (Manual) Lymphocytes % (Manual) Nucleated RBC % Seg Neutrophils # Man Lymphocytes # (Manual) Monocytes # (Manual) PT INR APTT D-Dimer POC ABG pH ABG pH POC ABG pO2 ABG pO2 ABG HCO3 ABG O2 Saturation ABG Base Excess ABG Hemoglobin VBG pH Oxyhemoglobin Sodium 122 L Potassium 7.9 H* 6.4 H* Chloride 75.3 L 89.7 L Carbon Dioxide 3 L* 12 L D BUN 52 H 46 H Creatinine 2.0 H 1.7 H Glucose 2043 H* 1591 H* POC Glucose Lactic Acid Calcium 7.8 L Phosphorus 19.30 H Magnesium 3.90 H Iron TIBC Direct Bilirubin AST ALT Alkaline Phosphatase Total Creatine Kinase CK-MB (CK-2) C-Reactive Protein Total Protein Albumin Vitamin B12 Salicylates Acetaminophen Miscellaneous Test Crossmatch 03/30/19 03/30/19 03/30/19 00:11 02:14 02:14 WBC RBC Hgb Hct MCV MCH MCHC RDW Plt Count [place] % (Auto) Lymph # Seg Neuts % (Manual) Lymphocytes % (Manual) Nucleated RBC % Seg Neutrophils # Man Lymphocytes # (Manual) Monocytes # (Manual) PT INR APTT D-Dimer POC ABG pH ABG pH POC ABG pO2 ABG pO2 ABG HCO3 ABG O2 Saturation ABG Base Excess ABG Hemoglobin VBG pH Oxyhemoglobin Sodium Potassium Chloride Carbon Dioxide 9 L* BUN 45 H Creatinine 1.7 H Glucose 1155 H* POC Glucose Lactic Acid Calcium 7.9 L Phosphorus 10.90 H D 5.30 H D Magnesium 3.10 H 2.90 H Iron TIBC Direct Bilirubin AST ALT Alkaline Phosphatase Total Creatine Kinase CK-MB (CK-2) C-Reactive Protein Total Protein Albumin Vitamin B12 Salicylates Acetaminophen Miscellaneous Test Crossmatch 03/30/19 03/30/19 03/30/19 03:15 03:30 04:23 WBC 18.0 H RBC 2.31 L Hgb 7.3 L Hct 23.8 L D MCV 103 H MCH MCHC RDW 17.1 H Plt Count [place] % (Auto) Lymph # Seg Neuts % (Manual) 79.0 H Lymphocytes % (Manual) Nucleated RBC % Seg Neutrophils # Man 14.2 H Lymphocytes # (Manual) Monocytes # (Manual) PT INR APTT D-Dimer POC ABG pH 7.251 L ABG pH POC ABG pO2 156 H ABG pO2 ABG HCO3 ABG O2 Saturation ABG Base Excess ABG Hemoglobin VBG pH Oxyhemoglobin Sodium Potassium Chloride Carbon Dioxide BUN Creatinine Glucose POC Glucose Lactic Acid Calcium Phosphorus Magnesium Iron TIBC Direct Bilirubin AST ALT Alkaline Phosphatase Total Creatine Kinase CK-MB (CK-2) C-Reactive Protein Total Protein Albumin Vitamin B12 Salicylates Acetaminophen Miscellaneous Test Crossmatch See Detail 03/30/19 03/30/19 03/30/19 05:26 05:26 10:38 WBC RBC Hgb Hct MCV MCH MCHC RDW Plt Count [place] % (Auto) Lymph # Seg Neuts % (Manual) Lymphocytes % (Manual) Nucleated RBC % Seg Neutrophils # Man Lymphocytes # (Manual) Monocytes # (Manual) PT INR APTT D-Dimer POC ABG pH ABG pH POC ABG pO2 ABG pO2 ABG HCO3 ABG O2 Saturation ABG Base Excess ABG Hemoglobin VBG pH Oxyhemoglobin Sodium 158 H D Potassium 3.5 L Chloride 109.3 H Carbon Dioxide 19 L D BUN 40 H Creatinine 1.5 H Glucose 760 H* POC Glucose 380 H Lactic Acid Calcium 7.3 L Phosphorus Magnesium 2.60 H Iron TIBC Direct Bilirubin AST 75520 H ALT 2156 H Alkaline Phosphatase 271 H Total Creatine Kinase 2465 H CK-MB (CK-2) 52.7 H C-Reactive Protein Total Protein 4.5 L Albumin 2.4 L Vitamin B12 Salicylates Acetaminophen Miscellaneous Test Crossmatch 03/30/19 03/30/19 03/30/19 11:08 12:25 12:57 WBC RBC Hgb Hct MCV MCH MCHC RDW Plt Count [place] % (Auto) Lymph # Seg Neuts % (Manual) Lymphocytes % (Manual) Nucleated RBC % Seg Neutrophils # Man Lymphocytes # (Manual) Monocytes # (Manual) PT INR APTT D-Dimer POC ABG pH ABG pH POC ABG pO2 ABG pO2 ABG HCO3 ABG O2 Saturation ABG Base Excess ABG Hemoglobin VBG pH Oxyhemoglobin Sodium 156 H Potassium 3.2 L Chloride 116.4 H Carbon Dioxide 21 L BUN 37 H Creatinine Glucose 162 H POC Glucose 263 H 196 H Lactic Acid Calcium 7.2 L Phosphorus Magnesium Iron TIBC Direct Bilirubin AST ALT Alkaline Phosphatase Total Creatine Kinase CK-MB (CK-2) C-Reactive Protein Total Protein Albumin Vitamin B12 Salicylates Acetaminophen Miscellaneous Test Crossmatch 03/30/19 03/30/19 03/30/19 12:57 12:57 12:57 WBC RBC Hgb Hct MCV MCH MCHC RDW Plt Count [place] % (Auto) Lymph # Seg Neuts % (Manual) Lymphocytes % (Manual) Nucleated RBC % Seg Neutrophils # Man Lymphocytes # (Manual) Monocytes # (Manual) PT 21.0 H INR 1.86 H APTT D-Dimer POC ABG pH ABG pH POC ABG pO2 ABG pO2 ABG HCO3 ABG O2 Saturation ABG Base Excess ABG Hemoglobin VBG pH Oxyhemoglobin Sodium Potassium Chloride Carbon Dioxide BUN Creatinine Glucose POC Glucose Lactic Acid 9.00 H* Calcium Phosphorus Magnesium Iron TIBC Direct Bilirubin AST ALT Alkaline Phosphatase Total Creatine Kinase CK-MB (CK-2) C-Reactive Protein 2.40 H Total Protein Albumin Vitamin B12 Salicylates Acetaminophen Miscellaneous Test Crossmatch 03/30/19 03/30/19 03/30/19 13:23 14:00 14:47 WBC RBC Hgb Hct MCV MCH MCHC RDW Plt Count [place] % (Auto) Lymph # Seg Neuts % (Manual) Lymphocytes % (Manual) Nucleated RBC % Seg Neutrophils # Man Lymphocytes # (Manual) Monocytes # (Manual) PT INR APTT D-Dimer POC ABG pH ABG pH POC ABG pO2 ABG pO2 ABG HCO3 ABG O2 Saturation ABG Base Excess ABG Hemoglobin VBG pH Oxyhemoglobin Sodium Potassium Chloride Carbon Dioxide BUN Creatinine Glucose POC Glucose 176 H 245 H Lactic Acid Calcium Phosphorus Magnesium Iron TIBC Direct Bilirubin AST ALT Alkaline Phosphatase Total Creatine Kinase CK-MB (CK-2) C-Reactive Protein Total Protein Albumin Vitamin B12 Salicylates Acetaminophen Miscellaneous Test Flexitest 1 H Crossmatch 03/30/19 03/30/19 03/30/19 16:11 17:11 17:46 WBC RBC Hgb Hct MCV MCH MCHC RDW Plt Count [place] % (Auto) Lymph # Seg Neuts % (Manual) Lymphocytes % (Manual) Nucleated RBC % Seg Neutrophils # Man Lymphocytes # (Manual) Monocytes # (Manual) PT INR APTT D-Dimer POC ABG pH ABG pH POC ABG pO2 ABG pO2 ABG HCO3 ABG O2 Saturation ABG Base Excess ABG Hemoglobin VBG pH Oxyhemoglobin Sodium Potassium Chloride Carbon Dioxide BUN Creatinine Glucose POC Glucose 181 H 167 H 125 H Lactic Acid Calcium Phosphorus Magnesium Iron TIBC Direct Bilirubin AST ALT Alkaline Phosphatase Total Creatine Kinase CK-MB (CK-2) C-Reactive Protein Total Protein Albumin Vitamin B12 Salicylates Acetaminophen Miscellaneous Test Crossmatch 03/30/19 03/30/19 03/30/19 18:59 21:31 22:19 WBC RBC Hgb Hct MCV MCH MCHC RDW Plt Count [place] % (Auto) Lymph # Seg Neuts % (Manual) Lymphocytes % (Manual) Nucleated RBC % Seg Neutrophils # Man Lymphocytes # (Manual) Monocytes # (Manual) PT INR APTT D-Dimer POC ABG pH ABG pH POC ABG pO2 ABG pO2 ABG HCO3 ABG O2 Saturation ABG Base Excess ABG Hemoglobin VBG pH Oxyhemoglobin Sodium Potassium Chloride Carbon Dioxide BUN Creatinine Glucose POC Glucose 140 H 166 H 115 H Lactic Acid Calcium Phosphorus Magnesium Iron TIBC Direct Bilirubin AST ALT Alkaline Phosphatase Total Creatine Kinase CK-MB (CK-2) C-Reactive Protein Total Protein Albumin Vitamin B12 Salicylates Acetaminophen Miscellaneous Test Crossmatch 03/30/19 03/30/19 03/30/19 23:13 Unknown Unknown WBC RBC Hgb Hct MCV MCH MCHC RDW Plt Count [place] % (Auto) Lymph # Seg Neuts % (Manual) Lymphocytes % (Manual) Nucleated RBC % Seg Neutrophils # Man Lymphocytes # (Manual) Monocytes # (Manual) PT INR APTT D-Dimer POC ABG pH ABG pH POC ABG pO2 ABG pO2 47.8 L ABG HCO3 18.8 L ABG O2 Saturation 83.8 L ABG Base Excess -5.4 L ABG Hemoglobin 6.8 L VBG pH Oxyhemoglobin 81.8 L Sodium 157 H Potassium 3.3 L Chloride 117.9 H Carbon Dioxide 20 L BUN 36 H Creatinine Glucose 150 H POC Glucose 112 H Lactic Acid Calcium 7.2 L Phosphorus Magnesium Iron TIBC Direct Bilirubin AST ALT Alkaline Phosphatase Total Creatine Kinase CK-MB (CK-2) C-Reactive Protein Total Protein Albumin Vitamin B12 Salicylates Acetaminophen Miscellaneous Test Crossmatch 03/30/19 03/30/19 03/31/19 Unknown Unknown 00:03 WBC RBC Hgb Hct MCV MCH MCHC RDW Plt Count [place] % (Auto) Lymph # Seg Neuts % (Manual) Lymphocytes % (Manual) Nucleated RBC % Seg Neutrophils # Man Lymphocytes # (Manual) Monocytes # (Manual) PT INR APTT D-Dimer POC ABG pH ABG pH POC ABG pO2 ABG pO2 ABG HCO3 ABG O2 Saturation ABG Base Excess ABG Hemoglobin VBG pH Oxyhemoglobin Sodium Potassium Chloride Carbon Dioxide BUN Creatinine Glucose POC Glucose 188 H Lactic Acid Calcium Phosphorus Magnesium Iron TIBC Direct Bilirubin AST ALT Alkaline Phosphatase Total Creatine Kinase CK-MB (CK-2) C-Reactive Protein Total Protein Albumin Vitamin B12 Salicylates 0.8 L Acetaminophen < 5.0 L Miscellaneous Test Crossmatch 03/31/19 03/31/19 03/31/19 01:18 03:07 03:50 WBC RBC Hgb Hct MCV MCH MCHC RDW Plt Count [place] % (Auto) Lymph # Seg Neuts % (Manual) Lymphocytes % (Manual) Nucleated RBC % Seg Neutrophils # Man Lymphocytes # (Manual) Monocytes # (Manual) PT INR APTT D-Dimer POC ABG pH ABG pH 7.525 H POC ABG pO2 ABG pO2 178.0 H ABG HCO3 19.5 L ABG O2 Saturation 99.2 H ABG Base Excess -3.1 L ABG Hemoglobin 5.8 L VBG pH Oxyhemoglobin Sodium Potassium Chloride Carbon Dioxide BUN Creatinine Glucose POC Glucose 114 H 107 H Lactic Acid Calcium Phosphorus Magnesium Iron TIBC Direct Bilirubin AST ALT Alkaline Phosphatase Total Creatine Kinase CK-MB (CK-2) C-Reactive Protein Total Protein Albumin Vitamin B12 Salicylates Acetaminophen Miscellaneous Test Crossmatch 03/31/19 03/31/19 03/31/19 03:51 03:51 04:05 WBC RBC 1.89 L Hgb 6.1 L Hct 18.2 L* MCV MCH MCHC RDW 17.7 H Plt Count 89 L [place] % (Auto) Lymph # Seg Neuts % (Manual) 86.0 H Lymphocytes % (Manual) 10.0 L Nucleated RBC % 1.0 H Seg Neutrophils # Man Lymphocytes # (Manual) 0.7 L Monocytes # (Manual) PT INR APTT D-Dimer POC ABG pH ABG pH POC ABG pO2 ABG pO2 ABG HCO3 ABG O2 Saturation ABG Base Excess ABG Hemoglobin VBG pH Oxyhemoglobin Sodium 151 H Potassium 3.2 L Chloride 119.4 H Carbon Dioxide 17 L BUN 35 H Creatinine Glucose 139 H POC Glucose 153 H Lactic Acid Calcium 7.1 L Phosphorus Magnesium Iron TIBC Direct Bilirubin AST ALT Alkaline Phosphatase Total Creatine Kinase CK-MB (CK-2) C-Reactive Protein Total Protein Albumin Vitamin B12 Salicylates Acetaminophen Miscellaneous Test Crossmatch 03/31/19 03/31/19 03/31/19 05:05 05:35 06:23 WBC RBC Hgb Hct MCV MCH MCHC RDW Plt Count [place] % (Auto) Lymph # Seg Neuts % (Manual) Lymphocytes % (Manual) Nucleated RBC % Seg Neutrophils # Man Lymphocytes # (Manual) Monocytes # (Manual) PT INR APTT D-Dimer POC ABG pH ABG pH POC ABG pO2 ABG pO2 ABG HCO3 ABG O2 Saturation ABG Base Excess ABG Hemoglobin VBG pH Oxyhemoglobin Sodium Potassium Chloride Carbon Dioxide BUN Creatinine Glucose POC Glucose 176 H 133 H Lactic Acid 3.20 H* Calcium Phosphorus Magnesium Iron TIBC Direct Bilirubin AST ALT Alkaline Phosphatase Total Creatine Kinase CK-MB (CK-2) C-Reactive Protein Total Protein Albumin Vitamin B12 Salicylates Acetaminophen Miscellaneous Test Crossmatch 03/31/19 03/31/19 03/31/19 07:50 07:51 08:20 WBC RBC Hgb Hct MCV MCH MCHC RDW Plt Count [place] % (Auto) Lymph # Seg Neuts % (Manual) Lymphocytes % (Manual) Nucleated RBC % Seg Neutrophils # Man Lymphocytes # (Manual) Monocytes # (Manual) PT INR APTT D-Dimer POC ABG pH ABG pH POC ABG pO2 ABG pO2 ABG HCO3 ABG O2 Saturation ABG Base Excess ABG Hemoglobin VBG pH Oxyhemoglobin Sodium Potassium Chloride Carbon Dioxide BUN Creatinine Glucose POC Glucose 135 H Lactic Acid 3.30 H* Calcium Phosphorus Magnesium Iron 26 L TIBC 193 L Direct Bilirubin AST ALT Alkaline Phosphatase Total Creatine Kinase CK-MB (CK-2) C-Reactive Protein Total Protein Albumin Vitamin B12 Salicylates Acetaminophen Miscellaneous Test Crossmatch 03/31/19 03/31/19 03/31/19 08:20 08:20 09:06 WBC RBC Hgb Hct MCV MCH MCHC RDW Plt Count [place] % (Auto) Lymph # Seg Neuts % (Manual) Lymphocytes % (Manual) Nucleated RBC % Seg Neutrophils # Man Lymphocytes # (Manual) Monocytes # (Manual) PT INR APTT D-Dimer POC ABG pH ABG pH POC ABG pO2 ABG pO2 ABG HCO3 ABG O2 Saturation ABG Base Excess ABG Hemoglobin VBG pH Oxyhemoglobin Sodium 153 H Potassium 3.0 L Chloride 118.9 H Carbon Dioxide 18 L BUN 37 H Creatinine Glucose 132 H POC Glucose 145 H Lactic Acid Calcium 7.1 L Phosphorus Magnesium Iron TIBC Direct Bilirubin AST ALT Alkaline Phosphatase Total Creatine Kinase CK-MB (CK-2) C-Reactive Protein Total Protein Albumin Vitamin B12 > 2000 H Salicylates Acetaminophen Miscellaneous Test Crossmatch 03/31/19 03/31/19 03/31/19 10:47 11:49 13:04 WBC RBC Hgb Hct MCV MCH MCHC RDW Plt Count [place] % (Auto) Lymph # Seg Neuts % (Manual) Lymphocytes % (Manual) Nucleated RBC % Seg Neutrophils # Man Lymphocytes # (Manual) Monocytes # (Manual) PT INR APTT D-Dimer POC ABG pH ABG pH POC ABG pO2 ABG pO2 ABG HCO3 ABG O2 Saturation ABG Base Excess ABG Hemoglobin VBG pH Oxyhemoglobin Sodium Potassium Chloride Carbon Dioxide BUN Creatinine Glucose POC Glucose 153 H 174 H 214 H Lactic Acid Calcium Phosphorus Magnesium Iron TIBC Direct Bilirubin AST ALT Alkaline Phosphatase Total Creatine Kinase CK-MB (CK-2) C-Reactive Protein Total Protein Albumin Vitamin B12 Salicylates Acetaminophen Miscellaneous Test Crossmatch 03/31/19 03/31/19 03/31/19 13:42 15:08 16:08 WBC RBC Hgb Hct MCV MCH MCHC RDW Plt Count [place] % (Auto) Lymph # Seg Neuts % (Manual) Lymphocytes % (Manual) Nucleated RBC % Seg Neutrophils # Man Lymphocytes # (Manual) Monocytes # (Manual) PT INR APTT D-Dimer POC ABG pH ABG pH POC ABG pO2 ABG pO2 ABG HCO3 ABG O2 Saturation ABG Base Excess ABG Hemoglobin VBG pH Oxyhemoglobin Sodium Potassium Chloride Carbon Dioxide BUN Creatinine Glucose POC Glucose 186 H 136 H 150 H Lactic Acid Calcium Phosphorus Magnesium Iron TIBC Direct Bilirubin AST ALT Alkaline Phosphatase Total Creatine Kinase CK-MB (CK-2) C-Reactive Protein Total Protein Albumin Vitamin B12 Salicylates Acetaminophen Miscellaneous Test Crossmatch 03/31/19 03/31/19 03/31/19 17:11 17:30 17:30 WBC RBC Hgb 7.7 L Hct 23.0 L MCV MCH MCHC RDW Plt Count [place] % (Auto) Lymph # Seg Neuts % (Manual) Lymphocytes % (Manual) Nucleated RBC % Seg Neutrophils # Man Lymphocytes # (Manual) Monocytes # (Manual) PT INR APTT D-Dimer POC ABG pH ABG pH POC ABG pO2 ABG pO2 ABG HCO3 ABG O2 Saturation ABG Base Excess ABG Hemoglobin VBG pH Oxyhemoglobin Sodium 153 H Potassium 3.5 L Chloride 119.3 H Carbon Dioxide 20 L BUN 34 H Creatinine Glucose 162 H POC Glucose 140 H Lactic Acid Calcium 7.6 L Phosphorus Magnesium Iron TIBC Direct Bilirubin AST ALT Alkaline Phosphatase Total Creatine Kinase CK-MB (CK-2) C-Reactive Protein Total Protein Albumin Vitamin B12 Salicylates Acetaminophen Miscellaneous Test Crossmatch 03/31/19 03/31/19 03/31/19 17:59 18:58 20:28 WBC RBC Hgb Hct MCV MCH MCHC RDW Plt Count [place] % (Auto) Lymph # Seg Neuts % (Manual) Lymphocytes % (Manual) Nucleated RBC % Seg Neutrophils # Man Lymphocytes # (Manual) Monocytes # (Manual) PT INR APTT D-Dimer POC ABG pH ABG pH POC ABG pO2 ABG pO2 ABG HCO3 ABG O2 Saturation ABG Base Excess ABG Hemoglobin VBG pH Oxyhemoglobin Sodium Potassium Chloride Carbon Dioxide BUN Creatinine Glucose POC Glucose 156 H 152 H 138 H Lactic Acid Calcium Phosphorus Magnesium Iron TIBC Direct Bilirubin AST ALT Alkaline Phosphatase Total Creatine Kinase CK-MB (CK-2) C-Reactive Protein Total Protein Albumin Vitamin B12 Salicylates Acetaminophen Miscellaneous Test Crossmatch 03/31/19 03/31/19 03/31/19 21:09 22:15 23:10 WBC RBC Hgb Hct MCV MCH MCHC RDW Plt Count [place] % (Auto) Lymph # Seg Neuts % (Manual) Lymphocytes % (Manual) Nucleated RBC % Seg Neutrophils # Man Lymphocytes # (Manual) Monocytes # (Manual) PT INR APTT D-Dimer POC ABG pH ABG pH POC ABG pO2 ABG pO2 ABG HCO3 ABG O2 Saturation ABG Base Excess ABG Hemoglobin VBG pH Oxyhemoglobin Sodium Potassium Chloride Carbon Dioxide BUN Creatinine Glucose POC Glucose 136 H 137 H 148 H Lactic Acid Calcium Phosphorus Magnesium Iron TIBC Direct Bilirubin AST ALT Alkaline Phosphatase Total Creatine Kinase CK-MB (CK-2) C-Reactive Protein Total Protein Albumin Vitamin B12 Salicylates Acetaminophen Miscellaneous Test Crossmatch 04/01/19 04/01/19 04/01/19 00:05 01:17 02:11 WBC RBC Hgb Hct MCV MCH MCHC RDW Plt Count [place] % (Auto) Lymph # Seg Neuts % (Manual) Lymphocytes % (Manual) Nucleated RBC % Seg Neutrophils # Man Lymphocytes # (Manual) Monocytes # (Manual) PT INR APTT D-Dimer POC ABG pH ABG pH POC ABG pO2 ABG pO2 ABG HCO3 ABG O2 Saturation ABG Base Excess ABG Hemoglobin VBG pH Oxyhemoglobin Sodium Potassium Chloride Carbon Dioxide BUN Creatinine Glucose POC Glucose 143 H 151 H 155 H Lactic Acid Calcium Phosphorus Magnesium Iron TIBC Direct Bilirubin AST ALT Alkaline Phosphatase Total Creatine Kinase CK-MB (CK-2) C-Reactive Protein Total Protein Albumin Vitamin B12 Salicylates Acetaminophen Miscellaneous Test Crossmatch 04/01/19 04/01/19 04/01/19 03:12 04:03 04:16 WBC RBC Hgb Hct MCV MCH MCHC RDW Plt Count [place] % (Auto) Lymph # Seg Neuts % (Manual) Lymphocytes % (Manual) Nucleated RBC % Seg Neutrophils # Man Lymphocytes # (Manual) Monocytes # (Manual) PT INR APTT D-Dimer POC ABG pH ABG pH POC ABG pO2 ABG pO2 ABG HCO3 ABG O2 Saturation ABG Base Excess ABG Hemoglobin VBG pH Oxyhemoglobin Sodium Potassium Chloride Carbon Dioxide BUN Creatinine Glucose POC Glucose 140 H 143 H 142 H Lactic Acid Calcium Phosphorus Magnesium Iron TIBC Direct Bilirubin AST ALT Alkaline Phosphatase Total Creatine Kinase CK-MB (CK-2) C-Reactive Protein Total Protein Albumin Vitamin B12 Salicylates Acetaminophen Miscellaneous Test Crossmatch 04/01/19 04/01/19 04/01/19 05:01 05:01 05:08 WBC RBC 2.05 L Hgb 6.8 L Hct 20.5 L MCV 100 H MCH 33 H MCHC RDW 17.7 H Plt Count 53 L [place] % (Auto) Lymph # Seg Neuts % (Manual) 71.0 H Lymphocytes % (Manual) Nucleated RBC % Seg Neutrophils # Man Lymphocytes # (Manual) Monocytes # (Manual) PT INR APTT D-Dimer POC ABG pH ABG pH POC ABG pO2 ABG pO2 ABG HCO3 ABG O2 Saturation ABG Base Excess ABG Hemoglobin VBG pH Oxyhemoglobin Sodium Potassium Chloride Carbon Dioxide BUN Creatinine Glucose POC Glucose 119 H Lactic Acid Calcium Phosphorus Magnesium Iron TIBC Direct Bilirubin 0.3 H AST 4601 H ALT 1542 H Alkaline Phosphatase 185 H Total Creatine Kinase CK-MB (CK-2) C-Reactive Protein Total Protein 3.8 L Albumin 1.6 L Vitamin B12 Salicylates Acetaminophen Miscellaneous Test Crossmatch 04/01/19 04/01/19 04/01/19 05:23 06:37 08:15 WBC RBC Hgb Hct MCV MCH MCHC RDW Plt Count [place] % (Auto) Lymph # Seg Neuts % (Manual) Lymphocytes % (Manual) Nucleated RBC % Seg Neutrophils # Man Lymphocytes # (Manual) Monocytes # (Manual) PT INR APTT D-Dimer POC ABG pH ABG pH POC ABG pO2 ABG pO2 ABG HCO3 ABG O2 Saturation ABG Base Excess ABG Hemoglobin VBG pH Oxyhemoglobin Sodium Potassium Chloride Carbon Dioxide BUN Creatinine Glucose POC Glucose 115 H 124 H 138 H Lactic Acid Calcium Phosphorus Magnesium Iron TIBC Direct Bilirubin AST ALT Alkaline Phosphatase Total Creatine Kinase CK-MB (CK-2) C-Reactive Protein Total Protein Albumin Vitamin B12 Salicylates Acetaminophen Miscellaneous Test Crossmatch 04/01/19 04/01/19 04/01/19 09:50 10:10 10:31 WBC RBC Hgb 6.5 L Hct 19.2 L* MCV MCH MCHC RDW Plt Count [place] % (Auto) Lymph # Seg Neuts % (Manual) Lymphocytes % (Manual) Nucleated RBC % Seg Neutrophils # Man Lymphocytes # (Manual) Monocytes # (Manual) PT INR APTT D-Dimer POC ABG pH ABG pH POC ABG pO2 ABG pO2 ABG HCO3 ABG O2 Saturation ABG Base Excess ABG Hemoglobin VBG pH Oxyhemoglobin Sodium 149 H Potassium 3.5 L Chloride 119.9 H Carbon Dioxide 21 L BUN 33 H Creatinine 0.5 L Glucose 142 H POC Glucose 185 H Lactic Acid Calcium 7.3 L Phosphorus Magnesium Iron TIBC Direct Bilirubin AST 3686 H ALT 1440 H Alkaline Phosphatase 185 H Total Creatine Kinase CK-MB (CK-2) C-Reactive Protein Total Protein 3.7 L Albumin 1.8 L Vitamin B12 Salicylates Acetaminophen Miscellaneous Test Crossmatch 04/01/19 04/01/19 04/01/19 11:35 13:05 14:35 WBC RBC Hgb Hct MCV MCH MCHC RDW Plt Count [place] % (Auto) Lymph # Seg Neuts % (Manual) Lymphocytes % (Manual) Nucleated RBC % Seg Neutrophils # Man Lymphocytes # (Manual) Monocytes # (Manual) PT INR APTT D-Dimer POC ABG pH ABG pH POC ABG pO2 ABG pO2 ABG HCO3 ABG O2 Saturation ABG Base Excess ABG Hemoglobin VBG pH Oxyhemoglobin Sodium Potassium Chloride Carbon Dioxide BUN Creatinine Glucose POC Glucose 201 H 169 H 134 H Lactic Acid Calcium Phosphorus Magnesium Iron TIBC Direct Bilirubin AST ALT Alkaline Phosphatase Total Creatine Kinase CK-MB (CK-2) C-Reactive Protein Total Protein Albumin Vitamin B12 Salicylates Acetaminophen Miscellaneous Test Crossmatch 04/01/19 04/01/19 04/01/19 17:13 17:14 18:30 WBC RBC Hgb Hct MCV MCH MCHC RDW Plt Count [place] % (Auto) Lymph # Seg Neuts % (Manual) Lymphocytes % (Manual) Nucleated RBC % Seg Neutrophils # Man Lymphocytes # (Manual) Monocytes # (Manual) PT INR APTT D-Dimer 5203.68 H POC ABG pH ABG pH POC ABG pO2 ABG pO2 ABG HCO3 ABG O2 Saturation ABG Base Excess ABG Hemoglobin VBG pH Oxyhemoglobin Sodium Potassium Chloride Carbon Dioxide BUN Creatinine Glucose POC Glucose 69 L 128 H Lactic Acid Calcium Phosphorus Magnesium Iron TIBC Direct Bilirubin AST ALT Alkaline Phosphatase Total Creatine Kinase CK-MB (CK-2) C-Reactive Protein Total Protein Albumin Vitamin B12 Salicylates Acetaminophen Miscellaneous Test Crossmatch 04/01/19 04/01/19 04/02/19 22:50 Unknown 03:40 WBC RBC Hgb Hct MCV MCH MCHC RDW Plt Count [place] % (Auto) Lymph # Seg Neuts % (Manual) Lymphocytes % (Manual) Nucleated RBC % Seg Neutrophils # Man Lymphocytes # (Manual) Monocytes # (Manual) PT INR APTT D-Dimer POC ABG pH ABG pH POC ABG pO2 ABG pO2 78.3 L 142.8 H ABG HCO3 15.5 L ABG O2 Saturation ABG Base Excess -3.5 L -8.2 L ABG Hemoglobin 6.8 L 8.2 L VBG pH Oxyhemoglobin 94.3 L Sodium Potassium Chloride Carbon Dioxide BUN Creatinine Glucose POC Glucose 342 H Lactic Acid Calcium Phosphorus Magnesium Iron TIBC Direct Bilirubin AST ALT Alkaline Phosphatase Total Creatine Kinase CK-MB (CK-2) C-Reactive Protein Total Protein Albumin Vitamin B12 Salicylates Acetaminophen Miscellaneous Test Crossmatch 04/02/19 04/02/19 04/02/19 03:49 06:50 07:48 WBC RBC 2.65 L Hgb 8.6 L Hct 25.1 L MCV MCH MCHC RDW 17.6 H Plt Count 48 L [place] % (Auto) Lymph # Seg Neuts % (Manual) Lymphocytes % (Manual) Nucleated RBC % Seg Neutrophils # Man Lymphocytes # (Manual) Monocytes # (Manual) PT INR APTT D-Dimer POC ABG pH ABG pH POC ABG pO2 ABG pO2 ABG HCO3 ABG O2 Saturation ABG Base Excess ABG Hemoglobin VBG pH Oxyhemoglobin Sodium Potassium Chloride Carbon Dioxide BUN Creatinine Glucose POC Glucose 247 H 200 H Lactic Acid Calcium Phosphorus Magnesium Iron TIBC Direct Bilirubin AST ALT Alkaline Phosphatase Total Creatine Kinase CK-MB (CK-2) C-Reactive Protein Total Protein Albumin Vitamin B12 Salicylates Acetaminophen Miscellaneous Test Crossmatch 04/02/19 04/02/19 04/02/19 07:48 11:18 14:07 WBC RBC Hgb Hct MCV MCH MCHC RDW Plt Count [place] % (Auto) Lymph # Seg Neuts % (Manual) Lymphocytes % (Manual) Nucleated RBC % Seg Neutrophils # Man Lymphocytes # (Manual) Monocytes # (Manual) PT INR APTT D-Dimer POC ABG pH ABG pH POC ABG pO2 ABG pO2 ABG HCO3 ABG O2 Saturation ABG Base Excess ABG Hemoglobin VBG pH Oxyhemoglobin Sodium Potassium 3.5 L Chloride 115.7 H Carbon Dioxide 19 L BUN 29 H Creatinine 0.5 L Glucose 159 H POC Glucose 154 H 149 H Lactic Acid Calcium 7.5 L Phosphorus Magnesium Iron TIBC Direct Bilirubin AST 1418 H ALT 1134 H Alkaline Phosphatase 242 H Total Creatine Kinase CK-MB (CK-2) C-Reactive Protein Total Protein 4.2 L Albumin 2.1 L Vitamin B12 Salicylates Acetaminophen Miscellaneous Test Crossmatch 04/02/19 04/02/19 04/02/19 18:09 19:46 23:05 WBC RBC Hgb Hct MCV MCH MCHC RDW Plt Count [place] % (Auto) Lymph # Seg Neuts % (Manual) Lymphocytes % (Manual) Nucleated RBC % Seg Neutrophils # Man Lymphocytes # (Manual) Monocytes # (Manual) PT INR APTT D-Dimer POC ABG pH ABG pH POC ABG pO2 ABG pO2 ABG HCO3 ABG O2 Saturation ABG Base Excess ABG Hemoglobin VBG pH Oxyhemoglobin Sodium Potassium Chloride Carbon Dioxide BUN Creatinine Glucose POC Glucose 188 H 209 H 247 H Lactic Acid Calcium Phosphorus Magnesium Iron TIBC Direct Bilirubin AST ALT Alkaline Phosphatase Total Creatine Kinase CK-MB (CK-2) C-Reactive Protein Total Protein Albumin Vitamin B12 Salicylates Acetaminophen Miscellaneous Test Crossmatch 04/03/19 04/03/19 04/03/19 02:58 03:40 03:40 WBC RBC 2.87 L Hgb 9.3 L Hct 27.0 L MCV MCH MCHC RDW 17.2 H Plt Count 65 L [place] % (Auto) 9.8 H Lymph # 1.1 L Seg Neuts % (Manual) Lymphocytes % (Manual) Nucleated RBC % Seg Neutrophils # Man Lymphocytes # (Manual) Monocytes # (Manual) PT INR APTT D-Dimer POC ABG pH ABG pH POC ABG pO2 ABG pO2 ABG HCO3 ABG O2 Saturation ABG Base Excess ABG Hemoglobin VBG pH Oxyhemoglobin Sodium 147 H Potassium 3.5 L Chloride 116.7 H Carbon Dioxide 18 L BUN Creatinine 0.4 L Glucose 150 H POC Glucose 166 H Lactic Acid Calcium 8.1 L Phosphorus 2.20 L Magnesium Iron TIBC Direct Bilirubin AST 594 H ALT 861 H Alkaline Phosphatase 299 H Total Creatine Kinase CK-MB (CK-2) C-Reactive Protein Total Protein 4.4 L Albumin 2.1 L Vitamin B12 Salicylates Acetaminophen Miscellaneous Test Crossmatch 04/03/19 04/03/19 04/03/19 05:35 07:02 08:23 WBC RBC Hgb Hct MCV MCH MCHC RDW Plt Count [place] % (Auto) Lymph # Seg Neuts % (Manual) Lymphocytes % (Manual) Nucleated RBC % Seg Neutrophils # Man Lymphocytes # (Manual) Monocytes # (Manual) PT INR APTT D-Dimer POC ABG pH ABG pH POC ABG pO2 ABG pO2 97.7 H ABG HCO3 19.3 L ABG O2 Saturation ABG Base Excess -5.0 L ABG Hemoglobin 8.0 L VBG pH Oxyhemoglobin Sodium Potassium Chloride Carbon Dioxide BUN Creatinine Glucose POC Glucose 135 H 132 H Lactic Acid Calcium Phosphorus Magnesium Iron TIBC Direct Bilirubin AST ALT Alkaline Phosphatase Total Creatine Kinase CK-MB (CK-2) C-Reactive Protein Total Protein Albumin Vitamin B12 Salicylates Acetaminophen Miscellaneous Test Crossmatch 04/03/19 04/03/19 04/03/19 11:58 15:11 17:53 WBC RBC Hgb Hct MCV MCH MCHC RDW Plt Count [place] % (Auto) Lymph # Seg Neuts % (Manual) Lymphocytes % (Manual) Nucleated RBC % Seg Neutrophils # Man Lymphocytes # (Manual) Monocytes # (Manual) PT INR APTT D-Dimer POC ABG pH ABG pH POC ABG pO2 ABG pO2 ABG HCO3 ABG O2 Saturation ABG Base Excess ABG Hemoglobin VBG pH Oxyhemoglobin Sodium Potassium Chloride Carbon Dioxide BUN Creatinine Glucose POC Glucose 179 H 213 H 223 H Lactic Acid Calcium Phosphorus Magnesium Iron TIBC Direct Bilirubin AST ALT Alkaline Phosphatase Total Creatine Kinase CK-MB (CK-2) C-Reactive Protein Total Protein Albumin Vitamin B12 Salicylates Acetaminophen Miscellaneous Test Crossmatch 04/03/19 04/04/19 04/04/19 23:06 02:36 06:41 WBC RBC Hgb Hct MCV MCH MCHC RDW Plt Count [place] % (Auto) Lymph # Seg Neuts % (Manual) Lymphocytes % (Manual) Nucleated RBC % Seg Neutrophils # Man Lymphocytes # (Manual) Monocytes # (Manual) PT INR APTT D-Dimer POC ABG pH ABG pH POC ABG pO2 ABG pO2 ABG HCO3 ABG O2 Saturation ABG Base Excess ABG Hemoglobin VBG pH Oxyhemoglobin Sodium Potassium Chloride Carbon Dioxide BUN Creatinine Glucose POC Glucose 189 H 157 H 131 H Lactic Acid Calcium Phosphorus Magnesium Iron TIBC Direct Bilirubin AST ALT Alkaline Phosphatase Total Creatine Kinase CK-MB (CK-2) C-Reactive Protein Total Protein Albumin Vitamin B12 Salicylates Acetaminophen Miscellaneous Test Crossmatch 04/04/19 04/04/19 04/04/19 11:42 15:45 18:21 WBC RBC Hgb Hct MCV MCH MCHC RDW Plt Count [place] % (Auto) Lymph # Seg Neuts % (Manual) Lymphocytes % (Manual) Nucleated RBC % Seg Neutrophils # Man Lymphocytes # (Manual) Monocytes # (Manual) PT INR APTT D-Dimer POC ABG pH ABG pH POC ABG pO2 ABG pO2 ABG HCO3 ABG O2 Saturation ABG Base Excess ABG Hemoglobin VBG pH Oxyhemoglobin Sodium Potassium Chloride Carbon Dioxide BUN Creatinine Glucose POC Glucose 233 H 236 H 255 H Lactic Acid Calcium Phosphorus Magnesium Iron TIBC Direct Bilirubin AST ALT Alkaline Phosphatase Total Creatine Kinase CK-MB (CK-2) C-Reactive Protein Total Protein Albumin Vitamin B12 Salicylates Acetaminophen Miscellaneous Test Crossmatch 04/04/19 04/05/19 04/05/19 21:21 03:06 06:05 WBC RBC 2.68 L Hgb 8.5 L Hct 26.3 L MCV 98 H MCH MCHC RDW 17.4 H Plt Count [place] % (Auto) Lymph # Seg Neuts % (Manual) Lymphocytes % (Manual) Nucleated RBC % Seg Neutrophils # Man Lymphocytes # (Manual) Monocytes # (Manual) PT INR APTT D-Dimer POC ABG pH ABG pH POC ABG pO2 ABG pO2 ABG HCO3 ABG O2 Saturation ABG Base Excess ABG Hemoglobin VBG pH Oxyhemoglobin Sodium Potassium Chloride Carbon Dioxide BUN Creatinine Glucose POC Glucose 132 H 161 H Lactic Acid Calcium Phosphorus Magnesium Iron TIBC Direct Bilirubin AST ALT Alkaline Phosphatase Total Creatine Kinase CK-MB (CK-2) C-Reactive Protein Total Protein Albumin Vitamin B12 Salicylates Acetaminophen Miscellaneous Test Crossmatch 04/05/19 04/05/19 04/05/19 06:05 06:49 10:23 WBC RBC Hgb Hct MCV MCH MCHC RDW Plt Count [place] % (Auto) Lymph # Seg Neuts % (Manual) Lymphocytes % (Manual) Nucleated RBC % Seg Neutrophils # Man Lymphocytes # (Manual) Monocytes # (Manual) PT INR APTT D-Dimer POC ABG pH ABG pH POC ABG pO2 ABG pO2 ABG HCO3 ABG O2 Saturation ABG Base Excess ABG Hemoglobin VBG pH Oxyhemoglobin Sodium Potassium Chloride 112.5 H Carbon Dioxide BUN Creatinine 0.2 L Glucose 237 H POC Glucose 283 H 296 H Lactic Acid Calcium 7.9 L Phosphorus Magnesium Iron TIBC Direct Bilirubin AST ALT Alkaline Phosphatase Total Creatine Kinase CK-MB (CK-2) C-Reactive Protein Total Protein Albumin Vitamin B12 Salicylates Acetaminophen Miscellaneous Test Crossmatch 04/05/19 04/05/19 04/05/19 14:46 18:19 20:35 WBC RBC Hgb Hct MCV MCH MCHC RDW Plt Count [place] % (Auto) Lymph # Seg Neuts % (Manual) Lymphocytes % (Manual) Nucleated RBC % Seg Neutrophils # Man Lymphocytes # (Manual) Monocytes # (Manual) PT INR APTT D-Dimer POC ABG pH ABG pH POC ABG pO2 ABG pO2 ABG HCO3 ABG O2 Saturation ABG Base Excess ABG Hemoglobin VBG pH Oxyhemoglobin Sodium Potassium Chloride Carbon Dioxide BUN Creatinine Glucose POC Glucose 225 H 259 H 236 H Lactic Acid Calcium Phosphorus Magnesium Iron TIBC Direct Bilirubin AST ALT Alkaline Phosphatase Total Creatine Kinase CK-MB (CK-2) C-Reactive Protein Total Protein Albumin Vitamin B12 Salicylates Acetaminophen Miscellaneous Test Crossmatch 04/05/19 04/06/19 04/06/19 23:11 00:06 03:14 WBC RBC Hgb Hct MCV MCH MCHC RDW Plt Count [place] % (Auto) Lymph # Seg Neuts % (Manual) Lymphocytes % (Manual) Nucleated RBC % Seg Neutrophils # Man Lymphocytes # (Manual) Monocytes # (Manual) PT INR APTT D-Dimer 4526.86 H POC ABG pH ABG pH POC ABG pO2 ABG pO2 ABG HCO3 ABG O2 Saturation ABG Base Excess ABG Hemoglobin VBG pH Oxyhemoglobin Sodium Potassium Chloride Carbon Dioxide BUN Creatinine Glucose POC Glucose 205 H 228 H Lactic Acid Calcium Phosphorus Magnesium Iron TIBC Direct Bilirubin AST ALT Alkaline Phosphatase Total Creatine Kinase CK-MB (CK-2) C-Reactive Protein Total Protein Albumin Vitamin B12 Salicylates Acetaminophen Miscellaneous Test Crossmatch 04/06/19 04/06/19 04/06/19 05:20 05:20 07:57 WBC 15.1 H RBC 2.90 L Hgb 9.1 L Hct 28.0 L MCV MCH MCHC RDW 17.3 H Plt Count [place] % (Auto) Lymph # Seg Neuts % (Manual) Lymphocytes % (Manual) Nucleated RBC % Seg Neutrophils # Man Lymphocytes # (Manual) Monocytes # (Manual) PT INR APTT D-Dimer POC ABG pH ABG pH POC ABG pO2 ABG pO2 ABG HCO3 ABG O2 Saturation ABG Base Excess ABG Hemoglobin VBG pH Oxyhemoglobin Sodium Potassium Chloride Carbon Dioxide BUN Creatinine 0.2 L Glucose 161 H POC Glucose 191 H Lactic Acid Calcium 8.0 L Phosphorus Magnesium Iron TIBC Direct Bilirubin AST ALT Alkaline Phosphatase Total Creatine Kinase CK-MB (CK-2) C-Reactive Protein Total Protein Albumin Vitamin B12 Salicylates Acetaminophen Miscellaneous Test Crossmatch 04/06/19 04/06/19 04/06/19 12:09 18:24 22:07 WBC RBC Hgb Hct MCV MCH MCHC RDW Plt Count [place] % (Auto) Lymph # Seg Neuts % (Manual) Lymphocytes % (Manual) Nucleated RBC % Seg Neutrophils # Man Lymphocytes # (Manual) Monocytes # (Manual) PT INR APTT D-Dimer POC ABG pH ABG pH POC ABG pO2 ABG pO2 ABG HCO3 ABG O2 Saturation ABG Base Excess ABG Hemoglobin VBG pH Oxyhemoglobin Sodium Potassium Chloride Carbon Dioxide BUN Creatinine Glucose POC Glucose 143 H 161 H 140 H Lactic Acid Calcium Phosphorus Magnesium Iron TIBC Direct Bilirubin AST ALT Alkaline Phosphatase Total Creatine Kinase CK-MB (CK-2) C-Reactive Protein Total Protein Albumin Vitamin B12 Salicylates Acetaminophen Miscellaneous Test Crossmatch 04/07/19 04/07/19 04/07/19 03:00 04:30 04:30 WBC 13.0 H RBC 2.65 L Hgb 8.3 L Hct 25.5 L MCV MCH MCHC RDW 17.0 H Plt Count [place] % (Auto) Lymph # Seg Neuts % (Manual) Lymphocytes % (Manual) Nucleated RBC % Seg Neutrophils # Man Lymphocytes # (Manual) Monocytes # (Manual) PT INR APTT D-Dimer POC ABG pH ABG pH POC ABG pO2 ABG pO2 ABG HCO3 ABG O2 Saturation ABG Base Excess ABG Hemoglobin VBG pH Oxyhemoglobin Sodium Potassium Chloride Carbon Dioxide BUN Creatinine 0.2 L Glucose 208 H POC Glucose 224 H Lactic Acid Calcium 7.7 L Phosphorus Magnesium Iron TIBC Direct Bilirubin AST ALT Alkaline Phosphatase Total Creatine Kinase CK-MB (CK-2) C-Reactive Protein Total Protein Albumin Vitamin B12 Salicylates Acetaminophen Miscellaneous Test Crossmatch 04/07/19 04/07/19 04/07/19 05:47 08:27 10:33 WBC RBC Hgb Hct MCV MCH MCHC RDW Plt Count [place] % (Auto) Lymph # Seg Neuts % (Manual) Lymphocytes % (Manual) Nucleated RBC % Seg Neutrophils # Man Lymphocytes # (Manual) Monocytes # (Manual) PT INR APTT D-Dimer POC ABG pH ABG pH POC ABG pO2 ABG pO2 ABG HCO3 ABG O2 Saturation ABG Base Excess ABG Hemoglobin VBG pH Oxyhemoglobin Sodium Potassium Chloride Carbon Dioxide BUN Creatinine Glucose POC Glucose 225 H 176 H 207 H Lactic Acid Calcium Phosphorus Magnesium Iron TIBC Direct Bilirubin AST ALT Alkaline Phosphatase Total Creatine Kinase CK-MB (CK-2) C-Reactive Protein Total Protein Albumin Vitamin B12 Salicylates Acetaminophen Miscellaneous Test Crossmatch 04/07/19 04/07/19 04/07/19 14:13 18:32 22:42 WBC RBC Hgb Hct MCV MCH MCHC RDW Plt Count [place] % (Auto) Lymph # Seg Neuts % (Manual) Lymphocytes % (Manual) Nucleated RBC % Seg Neutrophils # Man Lymphocytes # (Manual) Monocytes # (Manual) PT INR APTT D-Dimer POC ABG pH ABG pH POC ABG pO2 ABG pO2 ABG HCO3 ABG O2 Saturation ABG Base Excess ABG Hemoglobin VBG pH Oxyhemoglobin Sodium Potassium Chloride Carbon Dioxide BUN Creatinine Glucose POC Glucose 219 H 227 H 238 H Lactic Acid Calcium Phosphorus Magnesium Iron TIBC Direct Bilirubin AST ALT Alkaline Phosphatase Total Creatine Kinase CK-MB (CK-2) C-Reactive Protein Total Protein Albumin Vitamin B12 Salicylates Acetaminophen Miscellaneous Test Crossmatch 04/08/19 04/08/19 04/08/19 02:31 05:37 14:10 WBC RBC Hgb Hct MCV MCH MCHC RDW Plt Count [place] % (Auto) Lymph # Seg Neuts % (Manual) Lymphocytes % (Manual) Nucleated RBC % Seg Neutrophils # Man Lymphocytes # (Manual) Monocytes # (Manual) PT INR APTT D-Dimer POC ABG pH ABG pH POC ABG pO2 ABG pO2 ABG HCO3 ABG O2 Saturation ABG Base Excess ABG Hemoglobin VBG pH Oxyhemoglobin Sodium Potassium Chloride Carbon Dioxide BUN Creatinine Glucose POC Glucose 194 H 194 H 139 H Lactic Acid Calcium Phosphorus Magnesium Iron TIBC Direct Bilirubin AST ALT Alkaline Phosphatase Total Creatine Kinase CK-MB (CK-2) C-Reactive Protein Total Protein Albumin Vitamin B12 Salicylates Acetaminophen Miscellaneous Test Crossmatch 04/08/19 17:43 WBC RBC Hgb Hct MCV MCH MCHC RDW Plt Count [place] % (Auto) Lymph # Seg Neuts % (Manual) Lymphocytes % (Manual) Nucleated RBC % Seg Neutrophils # Man Lymphocytes # (Manual) Monocytes # (Manual) PT INR APTT D-Dimer POC ABG pH ABG pH POC ABG pO2 ABG pO2 ABG HCO3 ABG O2 Saturation ABG Base Excess ABG Hemoglobin VBG pH Oxyhemoglobin Sodium Potassium Chloride Carbon Dioxide BUN Creatinine Glucose POC Glucose 261 H Lactic Acid Calcium Phosphorus Magnesium Iron TIBC Direct Bilirubin AST ALT Alkaline Phosphatase Total Creatine Kinase CK-MB (CK-2) C-Reactive Protein Total Protein Albumin Vitamin B12 Salicylates Acetaminophen Miscellaneous Test Crossmatch Allied health notes reviewed: nursing
[2019-04-08] MEDS: LASIX IV SCH (18:16)
[2019-04-08] MEDS: ENOXAPARIN SUB-Q SCH (21:59)
[2019-04-08] MEDS: LANTUS SUB-Q SCH (21:59)
[2019-04-09] MEDS: SUBLIMAZE IV PRN ×2 (01:08→14:49)
[2019-04-09] MEDS: CEFEPIME/NS 2 GM/100 ML 2 GM/100 ML BAG IV SCH ×2 (02:07→10:33)
[2019-04-09] MEDS: HumuLIN R SUB-Q SCH ×6 (03:28→23:21)
[2019-04-09 06:17] LABS: Hematocrit 26.7 % (30.3-42.9); Mean Corpuscular HGB Conc 34 % (30-34); Mean Corpuscular Volume 96 fl (79-97); Platelet Count 407 K/mm3 (140-440); Red Blood Count 2.78 M/mm3 (3.65-5.03)
[2019-04-09 06:30] LABS: BUN/Creatinine Ratio 50; Blood Urea Nitrogen 10 mg/dL (7-17); Calcium 8.4 mg/dL (8.4-10.2); Hemolysis Index 4
[2019-04-09] MEDS: FLAGYL 500 MG/100 ML 500 MG/100 ML BAG IV SCH ×3 (06:36→21:18)
[2019-04-09] MEDS ORDERED: LANTUS SUB-Q ONE (10:00)
--- NOTE | 2019-04-09 10:03 | Progress Note ---
Assessment and Plan Assessment and plan: Patient is 28 year old woman with a history of diabetes was brought to the emergency room following a cardiac arrest. Her last well-known time was 10:30 in the morning, she was traveling with a friend, she was unresponsive in the back seat. EMS was called, CPR was started and continued here in the emergency room. Patient was intubated in the ER, noted hypotensive started on dobutamine, epinephrine and Levophed drip, given IV fluids, found to be in DKA with BG ~2200, several metabolic derangements - placed on insulin drip and admitted to ICU. BP improved and she was weaned off pressors. Still intubated on vent, minimal response. patient has been in coma for several days, no improvement. She has a DNR status order. Acute respiratory failure s/p intubated, on vent - on vent, cont nebs, - Pulm following Acute anoxic encephalopathy, POA - from cardiac arrest - Neurology following Cardiac arrest s/p resuscitation - likely 2/2 severe hyperglycemia - preserved EF on 2D echo DKA, severe - BG was >2200 on admission - s/p insulin drip. cont iv fluid - monitor BG q4h, on TF and on subqu insulin - adjust dose as needed Shock hypotensive vs sepsis - Now off pressors. Was on vasopressin, Levophed, Phenylephrine Sepsis with possible aspiration PNA - evident on CXR on admission with left sided infiltrates - cont abx per ID -Now on Ceftriaxone, Flagyl Fever due to Sepsis Head lice Permethin given isolation Acute renal failure, likely vasomotor nephropathy - resolved - cont iv fluid, monitor BMP Anemia, acute on chronic - no sign of blood loss s/p 2 Units PRBC transfused Hyperkalemia, resolved with fluid and insulin Hypernatremia Resolved hypokalemia, resolved Shock liver with elevated LFT and Coagulopathy - due to cardiac arrest and hypotension - cont to monitor Liver lesion ? abscess ID Physician following On Ceftriaxone, Flagyl Hypermagnesemia Hyperphosphatemia - cont to monitor, improved DVT Prophylaxis with Lovenox Poor prognosis discussed with mother at bedside. DNR status Mother has decided on DNR status The high probability of a clinically significant, sudden or life threatening deterioration of the [multiple] system(s) required my full and direct attention, intervention and personal management. The aggregate critical care time was [33] minutes. This time is in addition to time spent performing reported procedures but includes the following: [x] Data Review and interpretation [x] Patient assessment and monitoring of vital signs [x] Documentation [x] Medication orders and management History Interval history: Minimal responsive still intubated No Fever X 2 days Hospitalist Physical - Physical exam Narrative exam: Gen: Not in acute distress, intubated, on vent HEENT: facial edema, atraumatic Neck: supple, no JVD Heart: S1 and S2 reg, no murmurs, rubs or gallop Lungs: Clear to auscultation, no rhonchi, no wheeze Abd: soft, non tender, non distended, normal BS, Ext: anasarca, leg edema, no cyanosis Neuro: Minimal responsive, does not follow commands, - Constitutional Vitals: Temp Pulse Resp BP Pulse Ox 97.8 F 127 H 36 H 119/77 90 04/09/19 08:00 04/09/19 09:00 04/09/19 09:00 04/09/19 09:00 04/09/19 09:00 General appearance: Present: other (intubated) Results - Labs CBC & Chem 7: 04/09/19 05:35 04/09/19 05:35 Labs: Laboratory Last Values WBC 8.1 K/mm3 (4.5-11.0) 04/09/19 05:35 RBC 2.78 M/mm3 (3.65-5.03) L 04/09/19 05:35 Hgb 9.0 gm/dl (10.1-14.3) L 04/09/19 05:35 Hct 26.7 % (30.3-42.9) L 04/09/19 05:35 MCV 96 fl (79-97) 04/09/19 05:35 MCH 32 pg (28-32) 04/09/19 05:35 MCHC 34 % (30-34) 04/09/19 05:35 RDW 17.0 % (13.2-15.2) H 04/09/19 05:35 Plt Count 407 K/mm3 (140-440) 04/09/19 05:35 Lymph % (Auto) 16.9 % (13.4-35.0) 04/03/19 03:40 [place] % (Auto) 9.8 % (0.0-7.3) H 04/03/19 03:40 Eos % (Auto) 3.2 % (0.0-4.3) 04/03/19 03:40 Baso % (Auto) 0.4 % (0.0-1.8) 04/03/19 03:40 Lymph # 1.1 K/mm3 (1.2-5.4) L 04/03/19 03:40 [place] # 0.6 K/mm3 (0.0-0.8) 04/03/19 03:40 Eos # 0.2 K/mm3 (0.0-0.4) 04/03/19 03:40 Baso # 0.0 K/mm3 (0.0-0.1) 04/03/19 03:40 Add Manual Diff Complete 04/01/19 05:01 Total Counted 100 04/01/19 05:01 Seg Neutrophils % 69.7 % (40.0-70.0) 04/03/19 03:40 Seg Neuts % (Manual) 71.0 % (40.0-70.0) H 04/01/19 05:01 0 % 04/01/19 05:01 20.0 % (13.4-35.0) 04/01/19 05:01 Reactive Lymphs % (Man) 0 % 04/01/19 05:01 7.0 % (0.0-7.3) 04/01/19 05:01 2.0 % (0.0-4.3) 04/01/19 05:01 0 % (0.0-1.8) 04/01/19 05:01 0 % 04/01/19 05:01 0 % 04/01/19 05:01 0 % 04/01/19 05:01 0 % 04/01/19 05:01 Nucleated RBC % Not Reportable 04/01/19 05:01 Seg Neutrophils # 4.4 K/mm3 (1.8-7.7) 04/03/19 03:40 Seg Neutrophils # Man 4.8 K/mm3 (1.8-7.7) 04/01/19 05:01 Band Neutrophils # 0.0 K/mm3 04/01/19 05:01 1.4 K/mm3 (1.2-5.4) 04/01/19 05:01 Abs React Lymphs (Man) 0.0 K/mm3 04/01/19 05:01 0.5 K/mm3 (0.0-0.8) 04/01/19 05:01 0.1 K/mm3 (0.0-0.4) 04/01/19 05:01 0.0 K/mm3 (0.0-0.1) 04/01/19 05:01 0.0 K/mm3 04/01/19 05:01 0.0 K/mm3 04/01/19 05:01 0.0 K/mm3 04/01/19 05:01 Blast Cells # 0.0 K/mm3 04/01/19 05:01 WBC Morphology Not Reportable 04/01/19 05:01 Hypersegmented Neuts Not Reportable 04/01/19 05:01 Hyposegmented Neuts Not Reportable 04/01/19 05:01 Hypogranular Neuts Not Reportable 04/01/19 05:01 Not Reportable 04/01/19 05:01 Not Reportable 04/01/19 05:01 Not Reportable 04/01/19 05:01 Not Reportable 04/01/19 05:01 Not Reportable 04/01/19 05:01 Not Reportable 04/01/19 05:01 Not Reportable 04/01/19 05:01 Not Reportable 04/01/19 05:01 Plt Clumps, EDTA Not Reportable 04/01/19 05:01 Not Reportable 04/01/19 05:01 Not Reportable 04/01/19 05:01 Not Reportable 04/01/19 05:01 Plt Morphology Comment Not Reportable 04/01/19 05:01 RBC Morphology Normal 04/01/19 05:01 Dimorphic RBCs Not Reportable 04/01/19 05:01 Not Reportable 04/01/19 05:01 Not Reportable 04/01/19 05:01 Not Reportable 04/01/19 05:01 Not Reportable 04/01/19 05:01 Not Reportable 04/01/19 05:01 Not Reportable 04/01/19 05:01 Not Reportable 04/01/19 05:01 Not Reportable 04/01/19 05:01 Not Reportable 04/01/19 05:01 Not Reportable 04/01/19 05:01 Not Reportable 04/01/19 05:01 Not Reportable 04/01/19 05:01 Not Reportable 04/01/19 05:01 Not Reportable 04/01/19 05:01 Not Reportable 04/01/19 05:01 Not Reportable 04/01/19 05:01 Not Reportable 04/01/19 05:01 Not Reportable 04/01/19 05:01 Not Reportable 04/01/19 05:01 Acanthocytes (Spur) Not Reportable 04/01/19 05:01 [place]leaux Not Reportable 04/01/19 05:01 Not Reportable 04/01/19 05:01 Not Reportable 04/01/19 05:01 Not Reportable 04/01/19 05:01 Not Reportable 04/01/19 05:01 Hem Pathologist Commnt No 04/01/19 05:01 PT 13.9 Sec. (12.2-14.9) 04/01/19 17:14 INR 1.10 (0.87-1.13) 04/01/19 17:14 APTT 74.5 Sec. (24.2-36.6) H* 03/29/19 19:20 313 mg/dl (211-480) 04/01/19 17:14 4526.86 ng/mlDDU (0-234) H 04/06/19 00:06 Heparin Anti-Xa, Unfract Negative (Negative) 03/31/19 15:00 POC ABG pH 7.374 (7.35-7.45) 04/04/19 03:46 ABG pH 7.396 pH Units (7.350-7.450) 04/03/19 05:35 POC ABG pCO2 36.2 (35-45) 04/04/19 03:46 ABG pCO2 32.2 mm Hg 04/03/19 05:35 POC ABG pO2 96 (80-105) 04/04/19 03:46 ABG pO2 97.7 mm Hg (80.0-90.0) H 04/03/19 05:35 POC ABG HCO3 21.2 (22-26 mml/L) 04/04/19 03:46 ABG HCO3 19.3 mmol/L (20.0-26.0) L 04/03/19 05:35 POC ABG Total CO2 22 (23-27mmol/L) 04/04/19 03:46 POC ABG O2 Sat 97 04/04/19 03:46 ABG O2 Saturation 97.6 % (95.0-99.0) 04/03/19 05:35 ABG O2 Content 10.9 (0.0-44) 04/03/19 05:35 POC ABG Base Excess -4 ((-2) - (+3)mmol/L) 04/04/19 03:46 ABG Base Excess -5.0 mmol/L (-2.0-3.0) L 04/03/19 05:35 ABG Hemoglobin 8.0 gm/dl (12.0-16.0) L 04/03/19 05:35 ABG Carboxyhemoglobin 2.1 % (0.0-5.0) 04/03/19 05:35 ABG Methemoglobin 0.5 % (0.0-1.5) 04/03/19 05:35 VBG pH 6.800 (7.320-7.420) L* 03/29/19 19:47 95.1 % (95.0-99.0) 04/03/19 05:35 25 % 04/04/19 03:46 Sodium 143 mmol/L (137-145) 04/09/19 05:35 Potassium 4.0 mmol/L (3.6-5.0) 04/09/19 05:35 Chloride 104.0 mmol/L (98-107) 04/09/19 05:35 Carbon Dioxide 31 mmol/L (22-30) H 04/09/19 05:35 12 mmol/L 04/09/19 05:35 BUN 10 mg/dL (7-17) 04/09/19 05:35 0.2 mg/dL (0.7-1.2) L 04/09/19 05:35 Estimated GFR > 60 ml/min 04/09/19 05:35 50 % 04/09/19 05:35 Glucose 218 mg/dL (65-100) H 04/09/19 05:35 POC Glucose 240 (70-105) H 04/09/19 05:35 Lactic Acid 3.30 mmol/L (0.7-2.0) H* 03/31/19 07:50 Calcium 8.4 mg/dL (8.4-10.2) 04/09/19 05:35 Phosphorus 2.20 mg/dL (2.5-4.5) L 04/03/19 03:40 Magnesium 2.60 mg/dL (1.7-2.3) H 03/30/19 05:26 Iron 26 ug/dL (37-170) L 03/31/19 08:20 TIBC 193 mcg/dL (250-450) L 03/31/19 08:20 0.60 mg/dL (0.1-1.2) 04/03/19 03:40 0.2 mg/dL (0-0.2) 04/02/19 07:48 0.5 mg/dL 04/02/19 07:48 AST 594 units/L (5-40) H 04/03/19 03:40 ALT 861 units/L (7-56) H 04/03/19 03:40 299 units/L (35-129) H 04/03/19 03:40 2465 units/L (30-135) H 03/30/19 05:26 CK-MB (CK-2) 52.7 ng/mL (0.0-4.0) H 03/30/19 05:26 CK-MB (CK-2) Rel Index 2.1 (0-4) 03/30/19 05:26 < 0.010 ng/mL (0.00-0.029) 04/06/19 05:20 2.40 mg/dL (0.00-1.30) H 03/30/19 12:57 4.4 g/dL (6.3-8.2) L 04/03/19 03:40 2.1 g/dL (3.9-5) L 04/03/19 03:40 0.9 % 04/03/19 03:40 See scanned result 03/31/19 15:00 Vitamin B12 > 2000 pg/mL (211-911) H 03/31/19 08:20 > 20 ng/mL (7.3-26.0) 03/31/19 08:20 HCG, Qual Negative (Negative) 03/29/19 19:20 Yellow (Yellow) 03/29/19 23:10 Slightly-cloudy (Clear) 03/29/19 23:10 6.0 (5.0-7.0) 03/29/19 23:10 Ur Specific [place] 1.021 (1.003-1.030) 03/29/19 23:10 100 mg/dl mg/dL (Negative) 03/29/19 23:10 >=500 mg/dL (Negative) 03/29/19 23:10 20 mg/dL (Negative) 03/29/19 23:10 Lg (Negative) 03/29/19 23:10 Neg (Negative) 03/29/19 23:10 Neg (Negative) 03/29/19 23:10 < 2.0 mg/dL (<2.0) 03/29/19 23:10 Ur Leukocyte Esterase Neg (Negative) 03/29/19 23:10 1.0 /HPF (0.0-6.0) 03/29/19 23:10 1.0 /HPF (0.0-6.0) 03/29/19 23:10 Few /HPF 03/29/19 23:10 Salicylates 0.8 mg/dL (2.8-20.0) L 03/30/19 Unknown Presumptive negative 03/29/19 23:10 Presumptive negative 03/29/19 23:10 Acetaminophen < 5.0 ug/mL (10.0-30.0) L 03/30/19 Unknown Ur Barbiturates Screen Presumptive negative 03/29/19 23:10 Ur Phencyclidine Scrn Presumptive negative 03/29/19 23:10 Ur Amphetamines Screen Presumptive negative 03/29/19 23:10 U Benzodiazepines Scrn Presumptive negative 03/29/19 23:10 Presumptive negative 03/29/19 23:10 U Marijuana (THC) Screen Presumptive negative 03/29/19 23:10 Disclamer 03/29/19 23:10 Heparin-induced Plt Ab Negative (Negative) 03/31/19 15:00 UF Heparin High Dose 0 % Release 03/31/19 15:00 FABIAN UFH Low Dose 0.1 0 % Release 03/31/19 15:00 FABIAN UFH Low Dose 0.5 0 % Release 03/31/19 15:00 Hepatitis A IgM Ab Non-reactive (NonReactive) 03/30/19 Unknown Hep Bs Antigen Non-reactive (Negative) 03/30/19 Unknown Hep B Core IgM Ab Non-reactive (NonReactive) 03/30/19 Unknown Non-reactive (NonReactive) 03/30/19 Unknown Flexitest 1 H 03/30/19 14:00 Blood Type O POSITIVE 03/30/19 03:30 Antibody Screen Negative 03/30/19 03:30 Crossmatch See Detail 03/30/19 03:30 Active Medications - Current Medications Current Medications: Generic Name Dose Route Start Last Admin Trade Name Freq PRN Reason Stop Dose Admin Acetaminophen 650 mg 03/29/19 23:34 04/01/19 23:38 Tylenol PO 650 mg Q4H PRN Administration Pain MILD(1-3)/Fever >100.5/WARE Lipase/Protease/Amylase 1 each 04/02/19 11:[address] 10,500 Unit FEEDTUBE PRN PRN For Clogged Feeding Tube Dextrose 0 ml 03/29/19 20:33 03/31/19 02:15 D50w (25gm) Syringe IV 10 ml PRN PRN Administration Hypoglycemia Enoxaparin Sodium 40 mg 04/05/19 22:00 04/08/19 21:59 Lovenox SUB-Q 40 mg QDAY@2200 ZAMZAM Administration Famotidine 20 mg 04/02/19 10:00 04/08/19 22:00 Pepcid PO 20 mg BID ZAMZAM Administration Fentanyl 50 mcg 04/05/19 11:00 04/09/19 01:08 Sublimaze IV 50 mcg Q2H PRN Administration Pain , Severe (7-10)/AGITATION Hydrophilic Ointment 1 applic 03/30/19 11:24 Vaseline Lip Therapy TP Q2HR PRN Dry Lips Norepinephrine 4 mg in 250 mls @ 7.5 mls/hr 03/29/19 21:00 04/01/19 19:00 Levophed Drip 4 Mg/Ns 250 Ml IV 0 mcg/min TITR ZAMZAM 0 mls/hr Titration Protocol 2 MCG/MIN Vasopressin 20 unit/ Sodium 101 mls @ 9.09 mls/hr 03/29/19 23:45 04/02/19 07:45 Chloride IV 0 units/min TITR ZAMZAM 0 mls/hr Titration Protocol 0.03 UNITS/MIN Phenylephrine HCl 100 mg/ 100 mls @ 3 mls/hr 03/30/19 01:15 03/30/19 15:15 Sodium Chloride IV 0 mcg/min TITR ZAMZAM 0 mls/hr Titration Protocol 50 MCG/MIN Cefepime HCl 2 gm in 100 mls @ 200 mls/hr 04/07/19 10:00 04/09/19 02:07 Maxipime/Ns 2 Gm/100 Ml IV 200 mls/hr Q8H ZAMZAM Administration Metronidazole 500 mg in 100 mls @ 100 mls/hr 04/07/19 14:00 04/09/19 06:36 Flagyl 500 Mg/100 Ml IV 100 mls/hr Q8HR ZAMZAM Administration Insulin Glargine 20 units 04/09/19 22:00 Lantus SUB-Q QHS ZAMZAM Insulin Human Regular 0 units 04/09/19 12:00 Humulin R SUB-Q Q6HR ZAMZAM Protocol Levetiracetam 500 mg 04/03/19 10:00 04/08/19 22:00 Keppra PO 500 mg BID ZAMZAM Administration Multi-Ingred Cream/Lotion/Oil/Oint 1 applic 03/30/19 11:24 04/06/19 11:39 Artificial Tears Ophth Oint OU 1 applic Q4HR PRN Administration Dry Eye(s) Ondansetron HCl 4 mg 03/29/19 23:34 Zofran IV Q8H PRN Nausea And Vomiting Simple Syrup 15 ml 04/02/19 11:44 Simple Syrup FEEDTUBE PRN PRN Hypoglycemia Simple Syrup 30 ml 04/02/19 11:44 Simple Syrup FEEDTUBE PRN PRN Hypoglycemia Sodium Bicarbonate 325 mg 04/02/19 11:44 Sodium Bicarbonate FEEDTUBE PRN PRN For Clogged Feeding Tube Sodium Chloride 10 ml 03/30/19 10:00 04/08/19 22:00 Sodium Chloride Flush Syringe 10 Ml IV 10 ml BID ZAMZAM Administration Sodium Chloride 10 ml 03/29/19 23:34 Sodium Chloride Flush Syringe 10 Ml IV PRN PRN LINE FLUSH Nutrition/Malnutrition Assess - Dietary Evaluation Nutrition/Malnutrition Findings: Nutrition Notes Start: 03/30/19 13:14 Freq: Status: Active Protocol: Document 04/04/19 10:13 LM (Rec: 04/04/19 10:17 LM [id number]) Nutrition Notes Initial or Follow up Reassessment Current Diagnosis Diabetes,Sepsis,Respiratory Failure Other Pertinent Diagnosis s/p cardiac arrest, DKA, ARF, Shock liver Current Diet NPO Labs/Tests POC glu 131 Pertinent Medications Reviewed Height 5 ft Weight 52.2 kg [place] Body Weight (kg) 45.45 BMI 22.4 Weight change and time frame Wt change possibly due to edema in both arms. Subjective/Other Information Glucerna running at 50 ml/hr. Pt on vent and tolerating TF. Burn Absent Trauma Absent #1 Nutrition Diagnosis Inadequate oral intake Diagnosis Progress(for reassessment Continues documentation) Is patient on ventilator? Yes Is Patient Ambulatory and/or Out of Bed No REE-([facility]-confined to bed) 1392.552 Calculation Used for Recommendations [facility] Additional Notes Pro needs 1.2-2g/k-104g/ day Fluid needs 1ml/kcal Nutrition Intervention Change Diet Order: Continue TF Nutrition Support: Glucerna 1.2 at 50ml/hr with 80ml water flush q4h. Kcal 1,440 Protein (gm) 72 Fluid (mL) 966 Goal #1 Meet at least 75% of energy and protein needs Follow-Up By: 04/11/19 Additional Comments F/U for TF tolerance/rate
[2019-04-09] MEDS: PEPCID PO SCH ×2 (10:31→21:18)
[2019-04-09] MEDS: LASIX IV SCH (10:32)
[2019-04-09] MEDS: KEPPRA PO SCH ×2 (10:32→21:19)
[2019-04-09] MEDS: SODIUM CHLORIDE FLUSH SYRINGE 10 ML IV SCH ×2 (10:33→21:19)
[2019-04-09] MEDS ORDERED: PERMETHRIN 5% TP ONE (11:00)
--- NOTE | 2019-04-09 11:05 | Progress Note ---
Assessment and Plan Acute hypoxemic respiratory failure, on MVS Acute toxic metabolic encephalopathy; MRI consistent with diffuse anoxic injury Diabetic ketoacidosis. Severe sepsis with shock. Possible aspiration pneumonia. History of polysubstance abuse. Leukocytosis. Elevated serum transaminases, possible shock liver. Hyponatremia related to her severe hyperglycemia. Anemia that is macrocytic. History of seizure disorder. Severe metabolic acidosis. 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 - continue bronchodilators with pulmonary hygiene per RT - VAP bundle addressed - continue to wean supplemental O2 to keep O2 sats > 90% - VTE prophylaxis-SCDs - Stress ulcer prophylaxis - continue accuchecks with glycemic control per SSI for target blood glucose 140-180 mg/dL - continue empiric antibiotics; de-escalate per ID rec's and based on clinical and microbiologic data - continue Keppra for seizures - continue mobility protocols / off loading for pressure ulcer prevention - Critical care bundles addressed - continue other care per attending / other consultants CONDITION: CRITICAL PROGNOSIS: GUARDED TO GRAVE CODE STATUS: FULL CODE The high probability of a clinically significant, sudden or life threatening deterioration of the [Neurology Respiratory, Cardiovascular] system(s) required my full and direct attention, intervention and personal management. The aggregate critical care time was [31] minutes. This time is in addition to time spent performing reported procedures but includes the following: [x] Data Review and interpretation [x] Patient assessment and monitoring of vital signs [x] Documentation [x] Medication orders and management Subjective Date of service: 04/09/19 Principal diagnosis: Ac Hypoxemic Resp Failure; DKA; Severe sepsis with shock; ANGELICA Interval history: Patient is seen today for: Acute Hypoxemic Resp Failure; Ac toxic metabolic encephalopathy; DKA; Severe sepsis with shock; Possible aspiration pneumonia; History of polysubstance abuse; History of seizure disorder; Acute kidney injury, possibly on chronic Seen and examined at bedside; 24hour events reviewed; nursing and respiratory care staff consulted; no adverse overnight events reported to me; resting peacefully in bed; AMS is persistent; remains off vasopressor but on MVS; no em esis or overt aspiration and no high grade fevers Vitals, labs,medications, chart reviewed. Encephalopathy persists. Discussed in ICU-IDT Objective Vital Signs - 12hr 04/08/19 04/09/19 04/09/19 23:31 00:00 00:01 Temperature 99 F Pulse Rate 113 H 126 H Respiratory 17 Rate Blood Pressure 115/74 O2 Sat by Pulse 93 Oximetry 04/09/19 04/09/19 04/09/19 00:10 01:00 02:00 Temperature Pulse Rate 105 H 114 H 112 H Respiratory 15 18 Rate Blood Pressure 108/70 123/84 101/62 O2 Sat by Pulse 97 93 98 Oximetry 04/09/19 04/09/19 04/09/19 03:00 03:41 03:48 Temperature 98.5 F Pulse Rate 112 H 107 H Respiratory 17 Rate Blood Pressure 108/70 108/70 O2 Sat by Pulse 97 Oximetry 04/09/19 04/09/19 04/09/19 04:00 05:00 06:00 Temperature Pulse Rate 106 H 114 H 122 H Respiratory 15 17 16 Rate Blood Pressure 106/69 109/78 119/72 O2 Sat by Pulse 94 96 94 Oximetry 04/09/19 04/09/19 04/09/19 07:00 08:00 08:03 Temperature 97.8 F Pulse Rate 116 H 115 H 110 H Respiratory 14 16 Rate Blood Pressure 125/90 133/86 133/86 O2 Sat by Pulse 96 93 97 Oximetry 04/09/19 04/09/19 04/09/19 08:15 09:00 10:00 Temperature Pulse Rate 126 H 127 H 124 H Respiratory 33 H 36 H 35 H Rate Blood Pressure 133/86 119/77 126/85 O2 Sat by Pulse 93 90 91 Oximetry Constitutional: no acute distress, other (young CF normocephalic and atraumatic on MVS) Eyes: non-icteric ENT: oropharynx moist, other (ETT 22-23 cm Jessi) Neck: supple, no lymphadenopathy, no JVD Effort: mildly labored Ascultation: Bilateral: rhonchi Percussion: Bilateral: not dull Cardiovascular: regular rate and rhythm, other (sinus tachycardia) Gastrointestinal: normoactive bowel sounds, soft, non-tender Integumentary: erythema (noted on upper extremity) Extremities: no cyanosis, pink and warm, pulses normal, no ischemia or petechiae, edema (trace to 1+) Neurologic: unable to assess (remains unresponsive, opens eyes on suctioning, not obeying commands) Psychiatric: other (unable to assess) CBC and BMP: 04/10/19 04:15 04/10/19 04:15 ABG, PT/INR, D-dimer: ABG POC ABG pH 7.374 (7.35-7.45) 04/04/19 03:46 ABG pH 7.396 pH Units (7.350-7.450) 04/03/19 05:35 POC ABG pCO2 36.2 (35-45) 04/04/19 03:46 ABG pCO2 32.2 mm Hg 04/03/19 05:35 POC ABG pO2 96 (80-105) 04/04/19 03:46 ABG pO2 97.7 mm Hg (80.0-90.0) H 04/03/19 05:35 POC ABG HCO3 21.2 (22-26 mml/L) 04/04/19 03:46 POC ABG Total CO2 22 (23-27mmol/L) 04/04/19 03:46 POC ABG O2 Sat 97 04/04/19 03:46 ABG O2 Saturation 97.6 % (95.0-99.0) 04/03/19 05:35 PT/INR, D-dimer PT 13.9 Sec. (12.2-14.9) 04/01/19 17:14 INR 1.10 (0.87-1.13) 04/01/19 17:14 4526.86 ng/mlDDU (0-234) H 04/06/19 00:06 Abnormal lab findings: Abnormal Labs 03/29/19 03/29/19 03/29/19 19:11 19:20 19:20 WBC 26.7 H RBC 2.52 L Hgb 8.1 L Hct MCV 148 H MCH MCHC 22 L RDW 18.5 H Plt Count [place] % (Auto) Lymph # Seg Neuts % (Manual) 82.0 H Lymphocytes % (Manual) 7.0 L Nucleated RBC % Seg Neutrophils # Man 21.9 H Lymphocytes # (Manual) Monocytes # (Manual) 1.9 H PT 21.8 H INR 1.95 H APTT 74.5 H* D-Dimer POC ABG pH ABG pH POC ABG pO2 ABG pO2 ABG HCO3 ABG O2 Saturation ABG Base Excess ABG Hemoglobin VBG pH Oxyhemoglobin Sodium Potassium Chloride Carbon Dioxide BUN Creatinine Glucose POC Glucose > 500 H Lactic Acid Calcium Phosphorus Magnesium Iron TIBC Direct Bilirubin AST ALT Alkaline Phosphatase Total Creatine Kinase CK-MB (CK-2) C-Reactive Protein Total Protein Albumin Vitamin B12 Salicylates Acetaminophen Miscellaneous Test Crossmatch 03/29/19 03/29/19 03/29/19 19:20 19:47 20:59 WBC RBC Hgb Hct MCV MCH MCHC RDW Plt Count [place] % (Auto) Lymph # Seg Neuts % (Manual) Lymphocytes % (Manual) Nucleated RBC % Seg Neutrophils # Man Lymphocytes # (Manual) Monocytes # (Manual) PT INR APTT D-Dimer POC ABG pH 6.892 L ABG pH POC ABG pO2 236 H ABG pO2 ABG HCO3 ABG O2 Saturation ABG Base Excess ABG Hemoglobin VBG pH 6.800 L* Oxyhemoglobin Sodium 118 L* Potassium 9.0 H* Chloride 64.5 L Carbon Dioxide 7 L* BUN 53 H Creatinine 2.1 H Glucose 2196 H* POC Glucose Lactic Acid Calcium 12.4 H* Phosphorus Magnesium Iron TIBC Direct Bilirubin AST 3900 H ALT 1034 H Alkaline Phosphatase 316 H Total Creatine Kinase CK-MB (CK-2) C-Reactive Protein Total Protein 5.1 L Albumin 2.8 L Vitamin B12 Salicylates Acetaminophen Miscellaneous Test Crossmatch 03/29/19 03/29/19 03/29/19 22:45 22:45 22:45 WBC RBC Hgb Hct MCV MCH MCHC RDW Plt Count [place] % (Auto) Lymph # Seg Neuts % (Manual) Lymphocytes % (Manual) Nucleated RBC % Seg Neutrophils # Man Lymphocytes # (Manual) Monocytes # (Manual) PT INR APTT D-Dimer POC ABG pH ABG pH POC ABG pO2 ABG pO2 ABG HCO3 ABG O2 Saturation ABG Base Excess ABG Hemoglobin VBG pH Oxyhemoglobin Sodium 132 L D Potassium 7.0 H* Chloride 84.3 L Carbon Dioxide 3 L* BUN 48 H Creatinine 1.8 H Glucose 1779 H* POC Glucose Lactic Acid Calcium Phosphorus 21.70 H Magnesium 4.70 H Iron TIBC Direct Bilirubin AST ALT Alkaline Phosphatase Total Creatine Kinase 363 H CK-MB (CK-2) C-Reactive Protein Total Protein Albumin Vitamin B12 Salicylates Acetaminophen Miscellaneous Test Crossmatch 03/29/19 03/29/19 03/30/19 Unknown Unknown 00:11 WBC RBC Hgb Hct MCV MCH MCHC RDW Plt Count [place] % (Auto) Lymph # Seg Neuts % (Manual) Lymphocytes % (Manual) Nucleated RBC % Seg Neutrophils # Man Lymphocytes # (Manual) Monocytes # (Manual) PT INR APTT D-Dimer POC ABG pH ABG pH POC ABG pO2 ABG pO2 ABG HCO3 ABG O2 Saturation ABG Base Excess ABG Hemoglobin VBG pH Oxyhemoglobin Sodium 122 L Potassium 7.9 H* 6.4 H* Chloride 75.3 L 89.7 L Carbon Dioxide 3 L* 12 L D BUN 52 H 46 H Creatinine 2.0 H 1.7 H Glucose 2043 H* 1591 H* POC Glucose Lactic Acid Calcium 7.8 L Phosphorus 19.30 H Magnesium 3.90 H Iron TIBC Direct Bilirubin AST ALT Alkaline Phosphatase Total Creatine Kinase CK-MB (CK-2) C-Reactive Protein Total Protein Albumin Vitamin B12 Salicylates Acetaminophen Miscellaneous Test Crossmatch 03/30/19 03/30/19 03/30/19 00:11 02:14 02:14 WBC RBC Hgb Hct MCV MCH MCHC RDW Plt Count [place] % (Auto) Lymph # Seg Neuts % (Manual) Lymphocytes % (Manual) Nucleated RBC % Seg Neutrophils # Man Lymphocytes # (Manual) Monocytes # (Manual) PT INR APTT D-Dimer POC ABG pH ABG pH POC ABG pO2 ABG pO2 ABG HCO3 ABG O2 Saturation ABG Base Excess ABG Hemoglobin VBG pH Oxyhemoglobin Sodium Potassium Chloride Carbon Dioxide 9 L* BUN 45 H Creatinine 1.7 H Glucose 1155 H* POC Glucose Lactic Acid Calcium 7.9 L Phosphorus 10.90 H D 5.30 H D Magnesium 3.10 H 2.90 H Iron TIBC Direct Bilirubin AST ALT Alkaline Phosphatase Total Creatine Kinase CK-MB (CK-2) C-Reactive Protein Total Protein Albumin Vitamin B12 Salicylates Acetaminophen Miscellaneous Test Crossmatch 03/30/19 03/30/19 03/30/19 03:15 03:30 04:23 WBC 18.0 H RBC 2.31 L Hgb 7.3 L Hct 23.8 L D MCV 103 H MCH MCHC RDW 17.1 H Plt Count [place] % (Auto) Lymph # Seg Neuts % (Manual) 79.0 H Lymphocytes % (Manual) Nucleated RBC % Seg Neutrophils # Man 14.2 H Lymphocytes # (Manual) Monocytes # (Manual) PT INR APTT D-Dimer POC ABG pH 7.251 L ABG pH POC ABG pO2 156 H ABG pO2 ABG HCO3 ABG O2 Saturation ABG Base Excess ABG Hemoglobin VBG pH Oxyhemoglobin Sodium Potassium Chloride Carbon Dioxide BUN Creatinine Glucose POC Glucose Lactic Acid Calcium Phosphorus Magnesium Iron TIBC Direct Bilirubin AST ALT Alkaline Phosphatase Total Creatine Kinase CK-MB (CK-2) C-Reactive Protein Total Protein Albumin Vitamin B12 Salicylates Acetaminophen Miscellaneous Test Crossmatch See Detail 03/30/19 03/30/19 03/30/19 05:26 05:26 10:38 WBC RBC Hgb Hct MCV MCH MCHC RDW Plt Count [place] % (Auto) Lymph # Seg Neuts % (Manual) Lymphocytes % (Manual) Nucleated RBC % Seg Neutrophils # Man Lymphocytes # (Manual) Monocytes # (Manual) PT INR APTT D-Dimer POC ABG pH ABG pH POC ABG pO2 ABG pO2 ABG HCO3 ABG O2 Saturation ABG Base Excess ABG Hemoglobin VBG pH Oxyhemoglobin Sodium 158 H D Potassium 3.5 L Chloride 109.3 H Carbon Dioxide 19 L D BUN 40 H Creatinine 1.5 H Glucose 760 H* POC Glucose 380 H Lactic Acid Calcium 7.3 L Phosphorus Magnesium 2.60 H Iron TIBC Direct Bilirubin AST 41653 H ALT 2156 H Alkaline Phosphatase 271 H Total Creatine Kinase 2465 H CK-MB (CK-2) 52.7 H C-Reactive Protein Total Protein 4.5 L Albumin 2.4 L Vitamin B12 Salicylates Acetaminophen Miscellaneous Test Crossmatch 03/30/19 03/30/19 03/30/19 11:08 12:25 12:57 WBC RBC Hgb Hct MCV MCH MCHC RDW Plt Count [place] % (Auto) Lymph # Seg Neuts % (Manual) Lymphocytes % (Manual) Nucleated RBC % Seg Neutrophils # Man Lymphocytes # (Manual) Monocytes # (Manual) PT INR APTT D-Dimer POC ABG pH ABG pH POC ABG pO2 ABG pO2 ABG HCO3 ABG O2 Saturation ABG Base Excess ABG Hemoglobin VBG pH Oxyhemoglobin Sodium 156 H Potassium 3.2 L Chloride 116.4 H Carbon Dioxide 21 L BUN 37 H Creatinine Glucose 162 H POC Glucose 263 H 196 H Lactic Acid Calcium 7.2 L Phosphorus Magnesium Iron TIBC Direct Bilirubin AST ALT Alkaline Phosphatase Total Creatine Kinase CK-MB (CK-2) C-Reactive Protein Total Protein Albumin Vitamin B12 Salicylates Acetaminophen Miscellaneous Test Crossmatch 03/30/19 03/30/19 03/30/19 12:57 12:57 12:57 WBC RBC Hgb Hct MCV MCH MCHC RDW Plt Count [place] % (Auto) Lymph # Seg Neuts % (Manual) Lymphocytes % (Manual) Nucleated RBC % Seg Neutrophils # Man Lymphocytes # (Manual) Monocytes # (Manual) PT 21.0 H INR 1.86 H APTT D-Dimer POC ABG pH ABG pH POC ABG pO2 ABG pO2 ABG HCO3 ABG O2 Saturation ABG Base Excess ABG Hemoglobin VBG pH Oxyhemoglobin Sodium Potassium Chloride Carbon Dioxide BUN Creatinine Glucose POC Glucose Lactic Acid 9.00 H* Calcium Phosphorus Magnesium Iron TIBC Direct Bilirubin AST ALT Alkaline Phosphatase Total Creatine Kinase CK-MB (CK-2) C-Reactive Protein 2.40 H Total Protein Albumin Vitamin B12 Salicylates Acetaminophen Miscellaneous Test Crossmatch 03/30/19 03/30/19 03/30/19 13:23 14:00 14:47 WBC RBC Hgb Hct MCV MCH MCHC RDW Plt Count [place] % (Auto) Lymph # Seg Neuts % (Manual) Lymphocytes % (Manual) Nucleated RBC % Seg Neutrophils # Man Lymphocytes # (Manual) Monocytes # (Manual) PT INR APTT D-Dimer POC ABG pH ABG pH POC ABG pO2 ABG pO2 ABG HCO3 ABG O2 Saturation ABG Base Excess ABG Hemoglobin VBG pH Oxyhemoglobin Sodium Potassium Chloride Carbon Dioxide BUN Creatinine Glucose POC Glucose 176 H 245 H Lactic Acid Calcium Phosphorus Magnesium Iron TIBC Direct Bilirubin AST ALT Alkaline Phosphatase Total Creatine Kinase CK-MB (CK-2) C-Reactive Protein Total Protein Albumin Vitamin B12 Salicylates Acetaminophen Miscellaneous Test Flexitest 1 H Crossmatch 03/30/19 03/30/19 03/30/19 16:11 17:11 17:46 WBC RBC Hgb Hct MCV MCH MCHC RDW Plt Count [place] % (Auto) Lymph # Seg Neuts % (Manual) Lymphocytes % (Manual) Nucleated RBC % Seg Neutrophils # Man Lymphocytes # (Manual) Monocytes # (Manual) PT INR APTT D-Dimer POC ABG pH ABG pH POC ABG pO2 ABG pO2 ABG HCO3 ABG O2 Saturation ABG Base Excess ABG Hemoglobin VBG pH Oxyhemoglobin Sodium Potassium Chloride Carbon Dioxide BUN Creatinine Glucose POC Glucose 181 H 167 H 125 H Lactic Acid Calcium Phosphorus Magnesium Iron TIBC Direct Bilirubin AST ALT Alkaline Phosphatase Total Creatine Kinase CK-MB (CK-2) C-Reactive Protein Total Protein Albumin Vitamin B12 Salicylates Acetaminophen Miscellaneous Test Crossmatch 03/30/19 03/30/19 03/30/19 18:59 21:31 22:19 WBC RBC Hgb Hct MCV MCH MCHC RDW Plt Count [place] % (Auto) Lymph # Seg Neuts % (Manual) Lymphocytes % (Manual) Nucleated RBC % Seg Neutrophils # Man Lymphocytes # (Manual) Monocytes # (Manual) PT INR APTT D-Dimer POC ABG pH ABG pH POC ABG pO2 ABG pO2 ABG HCO3 ABG O2 Saturation ABG Base Excess ABG Hemoglobin VBG pH Oxyhemoglobin Sodium Potassium Chloride Carbon Dioxide BUN Creatinine Glucose POC Glucose 140 H 166 H 115 H Lactic Acid Calcium Phosphorus Magnesium Iron TIBC Direct Bilirubin AST ALT Alkaline Phosphatase Total Creatine Kinase CK-MB (CK-2) C-Reactive Protein Total Protein Albumin Vitamin B12 Salicylates Acetaminophen Miscellaneous Test Crossmatch 03/30/19 03/30/19 03/30/19 23:13 Unknown Unknown WBC RBC Hgb Hct MCV MCH MCHC RDW Plt Count [place] % (Auto) Lymph # Seg Neuts % (Manual) Lymphocytes % (Manual) Nucleated RBC % Seg Neutrophils # Man Lymphocytes # (Manual) Monocytes # (Manual) PT INR APTT D-Dimer POC ABG pH ABG pH POC ABG pO2 ABG pO2 47.8 L ABG HCO3 18.8 L ABG O2 Saturation 83.8 L ABG Base Excess -5.4 L ABG Hemoglobin 6.8 L VBG pH Oxyhemoglobin 81.8 L Sodium 157 H Potassium 3.3 L Chloride 117.9 H Carbon Dioxide 20 L BUN 36 H Creatinine Glucose 150 H POC Glucose 112 H Lactic Acid Calcium 7.2 L Phosphorus Magnesium Iron TIBC Direct Bilirubin AST ALT Alkaline Phosphatase Total Creatine Kinase CK-MB (CK-2) C-Reactive Protein Total Protein Albumin Vitamin B12 Salicylates Acetaminophen Miscellaneous Test Crossmatch 03/30/19 03/30/19 03/31/19 Unknown Unknown 00:03 WBC RBC Hgb Hct MCV MCH MCHC RDW Plt Count [place] % (Auto) Lymph # Seg Neuts % (Manual) Lymphocytes % (Manual) Nucleated RBC % Seg Neutrophils # Man Lymphocytes # (Manual) Monocytes # (Manual) PT INR APTT D-Dimer POC ABG pH ABG pH POC ABG pO2 ABG pO2 ABG HCO3 ABG O2 Saturation ABG Base Excess ABG Hemoglobin VBG pH Oxyhemoglobin Sodium Potassium Chloride Carbon Dioxide BUN Creatinine Glucose POC Glucose 188 H Lactic Acid Calcium Phosphorus Magnesium Iron TIBC Direct Bilirubin AST ALT Alkaline Phosphatase Total Creatine Kinase CK-MB (CK-2) C-Reactive Protein Total Protein Albumin Vitamin B12 Salicylates 0.8 L Acetaminophen < 5.0 L Miscellaneous Test Crossmatch 03/31/19 03/31/19 03/31/19 01:18 03:07 03:50 WBC RBC Hgb Hct MCV MCH MCHC RDW Plt Count [place] % (Auto) Lymph # Seg Neuts % (Manual) Lymphocytes % (Manual) Nucleated RBC % Seg Neutrophils # Man Lymphocytes # (Manual) Monocytes # (Manual) PT INR APTT D-Dimer POC ABG pH ABG pH 7.525 H POC ABG pO2 ABG pO2 178.0 H ABG HCO3 19.5 L ABG O2 Saturation 99.2 H ABG Base Excess -3.1 L ABG Hemoglobin 5.8 L VBG pH Oxyhemoglobin Sodium Potassium Chloride Carbon Dioxide BUN Creatinine Glucose POC Glucose 114 H 107 H Lactic Acid Calcium Phosphorus Magnesium Iron TIBC Direct Bilirubin AST ALT Alkaline Phosphatase Total Creatine Kinase CK-MB (CK-2) C-Reactive Protein Total Protein Albumin Vitamin B12 Salicylates Acetaminophen Miscellaneous Test Crossmatch 03/31/19 03/31/19 03/31/19 03:51 03:51 04:05 WBC RBC 1.89 L Hgb 6.1 L Hct 18.2 L* MCV MCH MCHC RDW 17.7 H Plt Count 89 L [place] % (Auto) Lymph # Seg Neuts % (Manual) 86.0 H Lymphocytes % (Manual) 10.0 L Nucleated RBC % 1.0 H Seg Neutrophils # Man Lymphocytes # (Manual) 0.7 L Monocytes # (Manual) PT INR APTT D-Dimer POC ABG pH ABG pH POC ABG pO2 ABG pO2 ABG HCO3 ABG O2 Saturation ABG Base Excess ABG Hemoglobin VBG pH Oxyhemoglobin Sodium 151 H Potassium 3.2 L Chloride 119.4 H Carbon Dioxide 17 L BUN 35 H Creatinine Glucose 139 H POC Glucose 153 H Lactic Acid Calcium 7.1 L Phosphorus Magnesium Iron TIBC Direct Bilirubin AST ALT Alkaline Phosphatase Total Creatine Kinase CK-MB (CK-2) C-Reactive Protein Total Protein Albumin Vitamin B12 Salicylates Acetaminophen Miscellaneous Test Crossmatch 03/31/19 03/31/19 03/31/19 05:05 05:35 06:23 WBC RBC Hgb Hct MCV MCH MCHC RDW Plt Count [place] % (Auto) Lymph # Seg Neuts % (Manual) Lymphocytes % (Manual) Nucleated RBC % Seg Neutrophils # Man Lymphocytes # (Manual) Monocytes # (Manual) PT INR APTT D-Dimer POC ABG pH ABG pH POC ABG pO2 ABG pO2 ABG HCO3 ABG O2 Saturation ABG Base Excess ABG Hemoglobin VBG pH Oxyhemoglobin Sodium Potassium Chloride Carbon Dioxide BUN Creatinine Glucose POC Glucose 176 H 133 H Lactic Acid 3.20 H* Calcium Phosphorus Magnesium Iron TIBC Direct Bilirubin AST ALT Alkaline Phosphatase Total Creatine Kinase CK-MB (CK-2) C-Reactive Protein Total Protein Albumin Vitamin B12 Salicylates Acetaminophen Miscellaneous Test Crossmatch 03/31/19 03/31/19 03/31/19 07:50 07:51 08:20 WBC RBC Hgb Hct MCV MCH MCHC RDW Plt Count [place] % (Auto) Lymph # Seg Neuts % (Manual) Lymphocytes % (Manual) Nucleated RBC % Seg Neutrophils # Man Lymphocytes # (Manual) Monocytes # (Manual) PT INR APTT D-Dimer POC ABG pH ABG pH POC ABG pO2 ABG pO2 ABG HCO3 ABG O2 Saturation ABG Base Excess ABG Hemoglobin VBG pH Oxyhemoglobin Sodium Potassium Chloride Carbon Dioxide BUN Creatinine Glucose POC Glucose 135 H Lactic Acid 3.30 H* Calcium Phosphorus Magnesium Iron 26 L TIBC 193 L Direct Bilirubin AST ALT Alkaline Phosphatase Total Creatine Kinase CK-MB (CK-2) C-Reactive Protein Total Protein Albumin Vitamin B12 Salicylates Acetaminophen Miscellaneous Test Crossmatch 03/31/19 03/31/19 03/31/19 08:20 08:20 09:06 WBC RBC Hgb Hct MCV MCH MCHC RDW Plt Count [place] % (Auto) Lymph # Seg Neuts % (Manual) Lymphocytes % (Manual) Nucleated RBC % Seg Neutrophils # Man Lymphocytes # (Manual) Monocytes # (Manual) PT INR APTT D-Dimer POC ABG pH ABG pH POC ABG pO2 ABG pO2 ABG HCO3 ABG O2 Saturation ABG Base Excess ABG Hemoglobin VBG pH Oxyhemoglobin Sodium 153 H Potassium 3.0 L Chloride 118.9 H Carbon Dioxide 18 L BUN 37 H Creatinine Glucose 132 H POC Glucose 145 H Lactic Acid Calcium 7.1 L Phosphorus Magnesium Iron TIBC Direct Bilirubin AST ALT Alkaline Phosphatase Total Creatine Kinase CK-MB (CK-2) C-Reactive Protein Total Protein Albumin Vitamin B12 > 2000 H Salicylates Acetaminophen Miscellaneous Test Crossmatch 03/31/19 03/31/19 03/31/19 10:47 11:49 13:04 WBC RBC Hgb Hct MCV MCH MCHC RDW Plt Count [place] % (Auto) Lymph # Seg Neuts % (Manual) Lymphocytes % (Manual) Nucleated RBC % Seg Neutrophils # Man Lymphocytes # (Manual) Monocytes # (Manual) PT INR APTT D-Dimer POC ABG pH ABG pH POC ABG pO2 ABG pO2 ABG HCO3 ABG O2 Saturation ABG Base Excess ABG Hemoglobin VBG pH Oxyhemoglobin Sodium Potassium Chloride Carbon Dioxide BUN Creatinine Glucose POC Glucose 153 H 174 H 214 H Lactic Acid Calcium Phosphorus Magnesium Iron TIBC Direct Bilirubin AST ALT Alkaline Phosphatase Total Creatine Kinase CK-MB (CK-2) C-Reactive Protein Total Protein Albumin Vitamin B12 Salicylates Acetaminophen Miscellaneous Test Crossmatch 03/31/19 03/31/19 03/31/19 13:42 15:08 16:08 WBC RBC Hgb Hct MCV MCH MCHC RDW Plt Count [place] % (Auto) Lymph # Seg Neuts % (Manual) Lymphocytes % (Manual) Nucleated RBC % Seg Neutrophils # Man Lymphocytes # (Manual) Monocytes # (Manual) PT INR APTT D-Dimer POC ABG pH ABG pH POC ABG pO2 ABG pO2 ABG HCO3 ABG O2 Saturation ABG Base Excess ABG Hemoglobin VBG pH Oxyhemoglobin Sodium Potassium Chloride Carbon Dioxide BUN Creatinine Glucose POC Glucose 186 H 136 H 150 H Lactic Acid Calcium Phosphorus Magnesium Iron TIBC Direct Bilirubin AST ALT Alkaline Phosphatase Total Creatine Kinase CK-MB (CK-2) C-Reactive Protein Total Protein Albumin Vitamin B12 Salicylates Acetaminophen Miscellaneous Test Crossmatch 03/31/19 03/31/19 03/31/19 17:11 17:30 17:30 WBC RBC Hgb 7.7 L Hct 23.0 L MCV MCH MCHC RDW Plt Count [place] % (Auto) Lymph # Seg Neuts % (Manual) Lymphocytes % (Manual) Nucleated RBC % Seg Neutrophils # Man Lymphocytes # (Manual) Monocytes # (Manual) PT INR APTT D-Dimer POC ABG pH ABG pH POC ABG pO2 ABG pO2 ABG HCO3 ABG O2 Saturation ABG Base Excess ABG Hemoglobin VBG pH Oxyhemoglobin Sodium 153 H Potassium 3.5 L Chloride 119.3 H Carbon Dioxide 20 L BUN 34 H Creatinine Glucose 162 H POC Glucose 140 H Lactic Acid Calcium 7.6 L Phosphorus Magnesium Iron TIBC Direct Bilirubin AST ALT Alkaline Phosphatase Total Creatine Kinase CK-MB (CK-2) C-Reactive Protein Total Protein Albumin Vitamin B12 Salicylates Acetaminophen Miscellaneous Test Crossmatch 03/31/19 03/31/19 03/31/19 17:59 18:58 20:28 WBC RBC Hgb Hct MCV MCH MCHC RDW Plt Count [place] % (Auto) Lymph # Seg Neuts % (Manual) Lymphocytes % (Manual) Nucleated RBC % Seg Neutrophils # Man Lymphocytes # (Manual) Monocytes # (Manual) PT INR APTT D-Dimer POC ABG pH ABG pH POC ABG pO2 ABG pO2 ABG HCO3 ABG O2 Saturation ABG Base Excess ABG Hemoglobin VBG pH Oxyhemoglobin Sodium Potassium Chloride Carbon Dioxide BUN Creatinine Glucose POC Glucose 156 H 152 H 138 H Lactic Acid Calcium Phosphorus Magnesium Iron TIBC Direct Bilirubin AST ALT Alkaline Phosphatase Total Creatine Kinase CK-MB (CK-2) C-Reactive Protein Total Protein Albumin Vitamin B12 Salicylates Acetaminophen Miscellaneous Test Crossmatch 03/31/19 03/31/19 03/31/19 21:09 22:15 23:10 WBC RBC Hgb Hct MCV MCH MCHC RDW Plt Count [place] % (Auto) Lymph # Seg Neuts % (Manual) Lymphocytes % (Manual) Nucleated RBC % Seg Neutrophils # Man Lymphocytes # (Manual) Monocytes # (Manual) PT INR APTT D-Dimer POC ABG pH ABG pH POC ABG pO2 ABG pO2 ABG HCO3 ABG O2 Saturation ABG Base Excess ABG Hemoglobin VBG pH Oxyhemoglobin Sodium Potassium Chloride Carbon Dioxide BUN Creatinine Glucose POC Glucose 136 H 137 H 148 H Lactic Acid Calcium Phosphorus Magnesium Iron TIBC Direct Bilirubin AST ALT Alkaline Phosphatase Total Creatine Kinase CK-MB (CK-2) C-Reactive Protein Total Protein Albumin Vitamin B12 Salicylates Acetaminophen Miscellaneous Test Crossmatch 04/01/19 04/01/19 04/01/19 00:05 01:17 02:11 WBC RBC Hgb Hct MCV MCH MCHC RDW Plt Count [place] % (Auto) Lymph # Seg Neuts % (Manual) Lymphocytes % (Manual) Nucleated RBC % Seg Neutrophils # Man Lymphocytes # (Manual) Monocytes # (Manual) PT INR APTT D-Dimer POC ABG pH ABG pH POC ABG pO2 ABG pO2 ABG HCO3 ABG O2 Saturation ABG Base Excess ABG Hemoglobin VBG pH Oxyhemoglobin Sodium Potassium Chloride Carbon Dioxide BUN Creatinine Glucose POC Glucose 143 H 151 H 155 H Lactic Acid Calcium Phosphorus Magnesium Iron TIBC Direct Bilirubin AST ALT Alkaline Phosphatase Total Creatine Kinase CK-MB (CK-2) C-Reactive Protein Total Protein Albumin Vitamin B12 Salicylates Acetaminophen Miscellaneous Test Crossmatch 04/01/19 04/01/19 04/01/19 03:12 04:03 04:16 WBC RBC Hgb Hct MCV MCH MCHC RDW Plt Count [place] % (Auto) Lymph # Seg Neuts % (Manual) Lymphocytes % (Manual) Nucleated RBC % Seg Neutrophils # Man Lymphocytes # (Manual) Monocytes # (Manual) PT INR APTT D-Dimer POC ABG pH ABG pH POC ABG pO2 ABG pO2 ABG HCO3 ABG O2 Saturation ABG Base Excess ABG Hemoglobin VBG pH Oxyhemoglobin Sodium Potassium Chloride Carbon Dioxide BUN Creatinine Glucose POC Glucose 140 H 143 H 142 H Lactic Acid Calcium Phosphorus Magnesium Iron TIBC Direct Bilirubin AST ALT Alkaline Phosphatase Total Creatine Kinase CK-MB (CK-2) C-Reactive Protein Total Protein Albumin Vitamin B12 Salicylates Acetaminophen Miscellaneous Test Crossmatch 04/01/19 04/01/19 04/01/19 05:01 05:01 05:08 WBC RBC 2.05 L Hgb 6.8 L Hct 20.5 L MCV 100 H MCH 33 H MCHC RDW 17.7 H Plt Count 53 L [place] % (Auto) Lymph # Seg Neuts % (Manual) 71.0 H Lymphocytes % (Manual) Nucleated RBC % Seg Neutrophils # Man Lymphocytes # (Manual) Monocytes # (Manual) PT INR APTT D-Dimer POC ABG pH ABG pH POC ABG pO2 ABG pO2 ABG HCO3 ABG O2 Saturation ABG Base Excess ABG Hemoglobin VBG pH Oxyhemoglobin Sodium Potassium Chloride Carbon Dioxide BUN Creatinine Glucose POC Glucose 119 H Lactic Acid Calcium Phosphorus Magnesium Iron TIBC Direct Bilirubin 0.3 H AST 4601 H ALT 1542 H Alkaline Phosphatase 185 H Total Creatine Kinase CK-MB (CK-2) C-Reactive Protein Total Protein 3.8 L Albumin 1.6 L Vitamin B12 Salicylates Acetaminophen Miscellaneous Test Crossmatch 04/01/19 04/01/19 04/01/19 05:23 06:37 08:15 WBC RBC Hgb Hct MCV MCH MCHC RDW Plt Count [place] % (Auto) Lymph # Seg Neuts % (Manual) Lymphocytes % (Manual) Nucleated RBC % Seg Neutrophils # Man Lymphocytes # (Manual) Monocytes # (Manual) PT INR APTT D-Dimer POC ABG pH ABG pH POC ABG pO2 ABG pO2 ABG HCO3 ABG O2 Saturation ABG Base Excess ABG Hemoglobin VBG pH Oxyhemoglobin Sodium Potassium Chloride Carbon Dioxide BUN Creatinine Glucose POC Glucose 115 H 124 H 138 H Lactic Acid Calcium Phosphorus Magnesium Iron TIBC Direct Bilirubin AST ALT Alkaline Phosphatase Total Creatine Kinase CK-MB (CK-2) C-Reactive Protein Total Protein Albumin Vitamin B12 Salicylates Acetaminophen Miscellaneous Test Crossmatch 04/01/19 04/01/19 04/01/19 09:50 10:10 10:31 WBC RBC Hgb 6.5 L Hct 19.2 L* MCV MCH MCHC RDW Plt Count [place] % (Auto) Lymph # Seg Neuts % (Manual) Lymphocytes % (Manual) Nucleated RBC % Seg Neutrophils # Man Lymphocytes # (Manual) Monocytes # (Manual) PT INR APTT D-Dimer POC ABG pH ABG pH POC ABG pO2 ABG pO2 ABG HCO3 ABG O2 Saturation ABG Base Excess ABG Hemoglobin VBG pH Oxyhemoglobin Sodium 149 H Potassium 3.5 L Chloride 119.9 H Carbon Dioxide 21 L BUN 33 H Creatinine 0.5 L Glucose 142 H POC Glucose 185 H Lactic Acid Calcium 7.3 L Phosphorus Magnesium Iron TIBC Direct Bilirubin AST 3686 H ALT 1440 H Alkaline Phosphatase 185 H Total Creatine Kinase CK-MB (CK-2) C-Reactive Protein Total Protein 3.7 L Albumin 1.8 L Vitamin B12 Salicylates Acetaminophen Miscellaneous Test Crossmatch 04/01/19 04/01/19 04/01/19 11:35 13:05 14:35 WBC RBC Hgb Hct MCV MCH MCHC RDW Plt Count [place] % (Auto) Lymph # Seg Neuts % (Manual) Lymphocytes % (Manual) Nucleated RBC % Seg Neutrophils # Man Lymphocytes # (Manual) Monocytes # (Manual) PT INR APTT D-Dimer POC ABG pH ABG pH POC ABG pO2 ABG pO2 ABG HCO3 ABG O2 Saturation ABG Base Excess ABG Hemoglobin VBG pH Oxyhemoglobin Sodium Potassium Chloride Carbon Dioxide BUN Creatinine Glucose POC Glucose 201 H 169 H 134 H Lactic Acid Calcium Phosphorus Magnesium Iron TIBC Direct Bilirubin AST ALT Alkaline Phosphatase Total Creatine Kinase CK-MB (CK-2) C-Reactive Protein Total Protein Albumin Vitamin B12 Salicylates Acetaminophen Miscellaneous Test Crossmatch 04/01/19 04/01/19 04/01/19 17:13 17:14 18:30 WBC RBC Hgb Hct MCV MCH MCHC RDW Plt Count [place] % (Auto) Lymph # Seg Neuts % (Manual) Lymphocytes % (Manual) Nucleated RBC % Seg Neutrophils # Man Lymphocytes # (Manual) Monocytes # (Manual) PT INR APTT D-Dimer 5203.68 H POC ABG pH ABG pH POC ABG pO2 ABG pO2 ABG HCO3 ABG O2 Saturation ABG Base Excess ABG Hemoglobin VBG pH Oxyhemoglobin Sodium Potassium Chloride Carbon Dioxide BUN Creatinine Glucose POC Glucose 69 L 128 H Lactic Acid Calcium Phosphorus Magnesium Iron TIBC Direct Bilirubin AST ALT Alkaline Phosphatase Total Creatine Kinase CK-MB (CK-2) C-Reactive Protein Total Protein Albumin Vitamin B12 Salicylates Acetaminophen Miscellaneous Test Crossmatch 04/01/19 04/01/19 04/02/19 22:50 Unknown 03:40 WBC RBC Hgb Hct MCV MCH MCHC RDW Plt Count [place] % (Auto) Lymph # Seg Neuts % (Manual) Lymphocytes % (Manual) Nucleated RBC % Seg Neutrophils # Man Lymphocytes # (Manual) Monocytes # (Manual) PT INR APTT D-Dimer POC ABG pH ABG pH POC ABG pO2 ABG pO2 78.3 L 142.8 H ABG HCO3 15.5 L ABG O2 Saturation ABG Base Excess -3.5 L -8.2 L ABG Hemoglobin 6.8 L 8.2 L VBG pH Oxyhemoglobin 94.3 L Sodium Potassium Chloride Carbon Dioxide BUN Creatinine Glucose POC Glucose 342 H Lactic Acid Calcium Phosphorus Magnesium Iron TIBC Direct Bilirubin AST ALT Alkaline Phosphatase Total Creatine Kinase CK-MB (CK-2) C-Reactive Protein Total Protein Albumin Vitamin B12 Salicylates Acetaminophen Miscellaneous Test Crossmatch 04/02/19 04/02/19 04/02/19 03:49 06:50 07:48 WBC RBC 2.65 L Hgb 8.6 L Hct 25.1 L MCV MCH MCHC RDW 17.6 H Plt Count 48 L [place] % (Auto) Lymph # Seg Neuts % (Manual) Lymphocytes % (Manual) Nucleated RBC % Seg Neutrophils # Man Lymphocytes # (Manual) Monocytes # (Manual) PT INR APTT D-Dimer POC ABG pH ABG pH POC ABG pO2 ABG pO2 ABG HCO3 ABG O2 Saturation ABG Base Excess ABG Hemoglobin VBG pH Oxyhemoglobin Sodium Potassium Chloride Carbon Dioxide BUN Creatinine Glucose POC Glucose 247 H 200 H Lactic Acid Calcium Phosphorus Magnesium Iron TIBC Direct Bilirubin AST ALT Alkaline Phosphatase Total Creatine Kinase CK-MB (CK-2) C-Reactive Protein Total Protein Albumin Vitamin B12 Salicylates Acetaminophen Miscellaneous Test Crossmatch 04/02/19 04/02/19 04/02/19 07:48 11:18 14:07 WBC RBC Hgb Hct MCV MCH MCHC RDW Plt Count [place] % (Auto) Lymph # Seg Neuts % (Manual) Lymphocytes % (Manual) Nucleated RBC % Seg Neutrophils # Man Lymphocytes # (Manual) Monocytes # (Manual) PT INR APTT D-Dimer POC ABG pH ABG pH POC ABG pO2 ABG pO2 ABG HCO3 ABG O2 Saturation ABG Base Excess ABG Hemoglobin VBG pH Oxyhemoglobin Sodium Potassium 3.5 L Chloride 115.7 H Carbon Dioxide 19 L BUN 29 H Creatinine 0.5 L Glucose 159 H POC Glucose 154 H 149 H Lactic Acid Calcium 7.5 L Phosphorus Magnesium Iron TIBC Direct Bilirubin AST 1418 H ALT 1134 H Alkaline Phosphatase 242 H Total Creatine Kinase CK-MB (CK-2) C-Reactive Protein Total Protein 4.2 L Albumin 2.1 L Vitamin B12 Salicylates Acetaminophen Miscellaneous Test Crossmatch 04/02/19 04/02/19 04/02/19 18:09 19:46 23:05 WBC RBC Hgb Hct MCV MCH MCHC RDW Plt Count [place] % (Auto) Lymph # Seg Neuts % (Manual) Lymphocytes % (Manual) Nucleated RBC % Seg Neutrophils # Man Lymphocytes # (Manual) Monocytes # (Manual) PT INR APTT D-Dimer POC ABG pH ABG pH POC ABG pO2 ABG pO2 ABG HCO3 ABG O2 Saturation ABG Base Excess ABG Hemoglobin VBG pH Oxyhemoglobin Sodium Potassium Chloride Carbon Dioxide BUN Creatinine Glucose POC Glucose 188 H 209 H 247 H Lactic Acid Calcium Phosphorus Magnesium Iron TIBC Direct Bilirubin AST ALT Alkaline Phosphatase Total Creatine Kinase CK-MB (CK-2) C-Reactive Protein Total Protein Albumin Vitamin B12 Salicylates Acetaminophen Miscellaneous Test Crossmatch 04/03/19 04/03/19 04/03/19 02:58 03:40 03:40 WBC RBC 2.87 L Hgb 9.3 L Hct 27.0 L MCV MCH MCHC RDW 17.2 H Plt Count 65 L [place] % (Auto) 9.8 H Lymph # 1.1 L Seg Neuts % (Manual) Lymphocytes % (Manual) Nucleated RBC % Seg Neutrophils # Man Lymphocytes # (Manual) Monocytes # (Manual) PT INR APTT D-Dimer POC ABG pH ABG pH POC ABG pO2 ABG pO2 ABG HCO3 ABG O2 Saturation ABG Base Excess ABG Hemoglobin VBG pH Oxyhemoglobin Sodium 147 H Potassium 3.5 L Chloride 116.7 H Carbon Dioxide 18 L BUN Creatinine 0.4 L Glucose 150 H POC Glucose 166 H Lactic Acid Calcium 8.1 L Phosphorus 2.20 L Magnesium Iron TIBC Direct Bilirubin AST 594 H ALT 861 H Alkaline Phosphatase 299 H Total Creatine Kinase CK-MB (CK-2) C-Reactive Protein Total Protein 4.4 L Albumin 2.1 L Vitamin B12 Salicylates Acetaminophen Miscellaneous Test Crossmatch 04/03/19 04/03/19 04/03/19 05:35 07:02 08:23 WBC RBC Hgb Hct MCV MCH MCHC RDW Plt Count [place] % (Auto) Lymph # Seg Neuts % (Manual) Lymphocytes % (Manual) Nucleated RBC % Seg Neutrophils # Man Lymphocytes # (Manual) Monocytes # (Manual) PT INR APTT D-Dimer POC ABG pH ABG pH POC ABG pO2 ABG pO2 97.7 H ABG HCO3 19.3 L ABG O2 Saturation ABG Base Excess -5.0 L ABG Hemoglobin 8.0 L VBG pH Oxyhemoglobin Sodium Potassium Chloride Carbon Dioxide BUN Creatinine Glucose POC Glucose 135 H 132 H Lactic Acid Calcium Phosphorus Magnesium Iron TIBC Direct Bilirubin AST ALT Alkaline Phosphatase Total Creatine Kinase CK-MB (CK-2) C-Reactive Protein Total Protein Albumin Vitamin B12 Salicylates Acetaminophen Miscellaneous Test Crossmatch 04/03/19 04/03/19 04/03/19 11:58 15:11 17:53 WBC RBC Hgb Hct MCV MCH MCHC RDW Plt Count [place] % (Auto) Lymph # Seg Neuts % (Manual) Lymphocytes % (Manual) Nucleated RBC % Seg Neutrophils # Man Lymphocytes # (Manual) Monocytes # (Manual) PT INR APTT D-Dimer POC ABG pH ABG pH POC ABG pO2 ABG pO2 ABG HCO3 ABG O2 Saturation ABG Base Excess ABG Hemoglobin VBG pH Oxyhemoglobin Sodium Potassium Chloride Carbon Dioxide BUN Creatinine Glucose POC Glucose 179 H 213 H 223 H Lactic Acid Calcium Phosphorus Magnesium Iron TIBC Direct Bilirubin AST ALT Alkaline Phosphatase Total Creatine Kinase CK-MB (CK-2) C-Reactive Protein Total Protein Albumin Vitamin B12 Salicylates Acetaminophen Miscellaneous Test Crossmatch 04/03/19 04/04/19 04/04/19 23:06 02:36 06:41 WBC RBC Hgb Hct MCV MCH MCHC RDW Plt Count [place] % (Auto) Lymph # Seg Neuts % (Manual) Lymphocytes % (Manual) Nucleated RBC % Seg Neutrophils # Man Lymphocytes # (Manual) Monocytes # (Manual) PT INR APTT D-Dimer POC ABG pH ABG pH POC ABG pO2 ABG pO2 ABG HCO3 ABG O2 Saturation ABG Base Excess ABG Hemoglobin VBG pH Oxyhemoglobin Sodium Potassium Chloride Carbon Dioxide BUN Creatinine Glucose POC Glucose 189 H 157 H 131 H Lactic Acid Calcium Phosphorus Magnesium Iron TIBC Direct Bilirubin AST ALT Alkaline Phosphatase Total Creatine Kinase CK-MB (CK-2) C-Reactive Protein Total Protein Albumin Vitamin B12 Salicylates Acetaminophen Miscellaneous Test Crossmatch 04/04/19 04/04/19 04/04/19 11:42 15:45 18:21 WBC RBC Hgb Hct MCV MCH MCHC RDW Plt Count [place] % (Auto) Lymph # Seg Neuts % (Manual) Lymphocytes % (Manual) Nucleated RBC % Seg Neutrophils # Man Lymphocytes # (Manual) Monocytes # (Manual) PT INR APTT D-Dimer POC ABG pH ABG pH POC ABG pO2 ABG pO2 ABG HCO3 ABG O2 Saturation ABG Base Excess ABG Hemoglobin VBG pH Oxyhemoglobin Sodium Potassium Chloride Carbon Dioxide BUN Creatinine Glucose POC Glucose 233 H 236 H 255 H Lactic Acid Calcium Phosphorus Magnesium Iron TIBC Direct Bilirubin AST ALT Alkaline Phosphatase Total Creatine Kinase CK-MB (CK-2) C-Reactive Protein Total Protein Albumin Vitamin B12 Salicylates Acetaminophen Miscellaneous Test Crossmatch 04/04/19 04/05/19 04/05/19 21:21 03:06 06:05 WBC RBC 2.68 L Hgb 8.5 L Hct 26.3 L MCV 98 H MCH MCHC RDW 17.4 H Plt Count [place] % (Auto) Lymph # Seg Neuts % (Manual) Lymphocytes % (Manual) Nucleated RBC % Seg Neutrophils # Man Lymphocytes # (Manual) Monocytes # (Manual) PT INR APTT D-Dimer POC ABG pH ABG pH POC ABG pO2 ABG pO2 ABG HCO3 ABG O2 Saturation ABG Base Excess ABG Hemoglobin VBG pH Oxyhemoglobin Sodium Potassium Chloride Carbon Dioxide BUN Creatinine Glucose POC Glucose 132 H 161 H Lactic Acid Calcium Phosphorus Magnesium Iron TIBC Direct Bilirubin AST ALT Alkaline Phosphatase Total Creatine Kinase CK-MB (CK-2) C-Reactive Protein Total Protein Albumin Vitamin B12 Salicylates Acetaminophen Miscellaneous Test Crossmatch 04/05/19 04/05/19 04/05/19 06:05 06:49 10:23 WBC RBC Hgb Hct MCV MCH MCHC RDW Plt Count [place] % (Auto) Lymph # Seg Neuts % (Manual) Lymphocytes % (Manual) Nucleated RBC % Seg Neutrophils # Man Lymphocytes # (Manual) Monocytes # (Manual) PT INR APTT D-Dimer POC ABG pH ABG pH POC ABG pO2 ABG pO2 ABG HCO3 ABG O2 Saturation ABG Base Excess ABG Hemoglobin VBG pH Oxyhemoglobin Sodium Potassium Chloride 112.5 H Carbon Dioxide BUN Creatinine 0.2 L Glucose 237 H POC Glucose 283 H 296 H Lactic Acid Calcium 7.9 L Phosphorus Magnesium Iron TIBC Direct Bilirubin AST ALT Alkaline Phosphatase Total Creatine Kinase CK-MB (CK-2) C-Reactive Protein Total Protein Albumin Vitamin B12 Salicylates Acetaminophen Miscellaneous Test Crossmatch 04/05/19 04/05/19 04/05/19 14:46 18:19 20:35 WBC RBC Hgb Hct MCV MCH MCHC RDW Plt Count [place] % (Auto) Lymph # Seg Neuts % (Manual) Lymphocytes % (Manual) Nucleated RBC % Seg Neutrophils # Man Lymphocytes # (Manual) Monocytes # (Manual) PT INR APTT D-Dimer POC ABG pH ABG pH POC ABG pO2 ABG pO2 ABG HCO3 ABG O2 Saturation ABG Base Excess ABG Hemoglobin VBG pH Oxyhemoglobin Sodium Potassium Chloride Carbon Dioxide BUN Creatinine Glucose POC Glucose 225 H 259 H 236 H Lactic Acid Calcium Phosphorus Magnesium Iron TIBC Direct Bilirubin AST ALT Alkaline Phosphatase Total Creatine Kinase CK-MB (CK-2) C-Reactive Protein Total Protein Albumin Vitamin B12 Salicylates Acetaminophen Miscellaneous Test Crossmatch 04/05/19 04/06/19 04/06/19 23:11 00:06 03:14 WBC RBC Hgb Hct MCV MCH MCHC RDW Plt Count [place] % (Auto) Lymph # Seg Neuts % (Manual) Lymphocytes % (Manual) Nucleated RBC % Seg Neutrophils # Man Lymphocytes # (Manual) Monocytes # (Manual) PT INR APTT D-Dimer 4526.86 H POC ABG pH ABG pH POC ABG pO2 ABG pO2 ABG HCO3 ABG O2 Saturation ABG Base Excess ABG Hemoglobin VBG pH Oxyhemoglobin Sodium Potassium Chloride Carbon Dioxide BUN Creatinine Glucose POC Glucose 205 H 228 H Lactic Acid Calcium Phosphorus Magnesium Iron TIBC Direct Bilirubin AST ALT Alkaline Phosphatase Total Creatine Kinase CK-MB (CK-2) C-Reactive Protein Total Protein Albumin Vitamin B12 Salicylates Acetaminophen Miscellaneous Test Crossmatch 04/06/19 04/06/19 04/06/19 05:20 05:20 07:57 WBC 15.1 H RBC 2.90 L Hgb 9.1 L Hct 28.0 L MCV MCH MCHC RDW 17.3 H Plt Count [place] % (Auto) Lymph # Seg Neuts % (Manual) Lymphocytes % (Manual) Nucleated RBC % Seg Neutrophils # Man Lymphocytes # (Manual) Monocytes # (Manual) PT INR APTT D-Dimer POC ABG pH ABG pH POC ABG pO2 ABG pO2 ABG HCO3 ABG O2 Saturation ABG Base Excess ABG Hemoglobin VBG pH Oxyhemoglobin Sodium Potassium Chloride Carbon Dioxide BUN Creatinine 0.2 L Glucose 161 H POC Glucose 191 H Lactic Acid Calcium 8.0 L Phosphorus Magnesium Iron TIBC Direct Bilirubin AST ALT Alkaline Phosphatase Total Creatine Kinase CK-MB (CK-2) C-Reactive Protein Total Protein Albumin Vitamin B12 Salicylates Acetaminophen Miscellaneous Test Crossmatch 04/06/19 04/06/19 04/06/19 12:09 18:24 22:07 WBC RBC Hgb Hct MCV MCH MCHC RDW Plt Count [place] % (Auto) Lymph # Seg Neuts % (Manual) Lymphocytes % (Manual) Nucleated RBC % Seg Neutrophils # Man Lymphocytes # (Manual) Monocytes # (Manual) PT INR APTT D-Dimer POC ABG pH ABG pH POC ABG pO2 ABG pO2 ABG HCO3 ABG O2 Saturation ABG Base Excess ABG Hemoglobin VBG pH Oxyhemoglobin Sodium Potassium Chloride Carbon Dioxide BUN Creatinine Glucose POC Glucose 143 H 161 H 140 H Lactic Acid Calcium Phosphorus Magnesium Iron TIBC Direct Bilirubin AST ALT Alkaline Phosphatase Total Creatine Kinase CK-MB (CK-2) C-Reactive Protein Total Protein Albumin Vitamin B12 Salicylates Acetaminophen Miscellaneous Test Crossmatch 04/07/19 04/07/19 04/07/19 03:00 04:30 04:30 WBC 13.0 H RBC 2.65 L Hgb 8.3 L Hct 25.5 L MCV MCH MCHC RDW 17.0 H Plt Count [place] % (Auto) Lymph # Seg Neuts % (Manual) Lymphocytes % (Manual) Nucleated RBC % Seg Neutrophils # Man Lymphocytes # (Manual) Monocytes # (Manual) PT INR APTT D-Dimer POC ABG pH ABG pH POC ABG pO2 ABG pO2 ABG HCO3 ABG O2 Saturation ABG Base Excess ABG Hemoglobin VBG pH Oxyhemoglobin Sodium Potassium Chloride Carbon Dioxide BUN Creatinine 0.2 L Glucose 208 H POC Glucose 224 H Lactic Acid Calcium 7.7 L Phosphorus Magnesium Iron TIBC Direct Bilirubin AST ALT Alkaline Phosphatase Total Creatine Kinase CK-MB (CK-2) C-Reactive Protein Total Protein Albumin Vitamin B12 Salicylates Acetaminophen Miscellaneous Test Crossmatch 04/07/19 04/07/19 04/07/19 05:47 08:27 10:33 WBC RBC Hgb Hct MCV MCH MCHC RDW Plt Count [place] % (Auto) Lymph # Seg Neuts % (Manual) Lymphocytes % (Manual) Nucleated RBC % Seg Neutrophils # Man Lymphocytes # (Manual) Monocytes # (Manual) PT INR APTT D-Dimer POC ABG pH ABG pH POC ABG pO2 ABG pO2 ABG HCO3 ABG O2 Saturation ABG Base Excess ABG Hemoglobin VBG pH Oxyhemoglobin Sodium Potassium Chloride Carbon Dioxide BUN Creatinine Glucose POC Glucose 225 H 176 H 207 H Lactic Acid Calcium Phosphorus Magnesium Iron TIBC Direct Bilirubin AST ALT Alkaline Phosphatase Total Creatine Kinase CK-MB (CK-2) C-Reactive Protein Total Protein Albumin Vitamin B12 Salicylates Acetaminophen Miscellaneous Test Crossmatch 04/07/19 04/07/19 04/07/19 14:13 18:32 22:42 WBC RBC Hgb Hct MCV MCH MCHC RDW Plt Count [place] % (Auto) Lymph # Seg Neuts % (Manual) Lymphocytes % (Manual) Nucleated RBC % Seg Neutrophils # Man Lymphocytes # (Manual) Monocytes # (Manual) PT INR APTT D-Dimer POC ABG pH ABG pH POC ABG pO2 ABG pO2 ABG HCO3 ABG O2 Saturation ABG Base Excess ABG Hemoglobin VBG pH Oxyhemoglobin Sodium Potassium Chloride Carbon Dioxide BUN Creatinine Glucose POC Glucose 219 H 227 H 238 H Lactic Acid Calcium Phosphorus Magnesium Iron TIBC Direct Bilirubin AST ALT Alkaline Phosphatase Total Creatine Kinase CK-MB (CK-2) C-Reactive Protein Total Protein Albumin Vitamin B12 Salicylates Acetaminophen Miscellaneous Test Crossmatch 04/08/19 04/08/19 04/08/19 02:31 05:37 14:10 WBC RBC Hgb Hct MCV MCH MCHC RDW Plt Count [place] % (Auto) Lymph # Seg Neuts % (Manual) Lymphocytes % (Manual) Nucleated RBC % Seg Neutrophils # Man Lymphocytes # (Manual) Monocytes # (Manual) PT INR APTT D-Dimer POC ABG pH ABG pH POC ABG pO2 ABG pO2 ABG HCO3 ABG O2 Saturation ABG Base Excess ABG Hemoglobin VBG pH Oxyhemoglobin Sodium Potassium Chloride Carbon Dioxide BUN Creatinine Glucose POC Glucose 194 H 194 H 139 H Lactic Acid Calcium Phosphorus Magnesium Iron TIBC Direct Bilirubin AST ALT Alkaline Phosphatase Total Creatine Kinase CK-MB (CK-2) C-Reactive Protein Total Protein Albumin Vitamin B12 Salicylates Acetaminophen Miscellaneous Test Crossmatch 04/08/19 04/08/19 04/09/19 17:43 23:20 03:28 WBC RBC Hgb Hct MCV MCH MCHC RDW Plt Count [place] % (Auto) Lymph # Seg Neuts % (Manual) Lymphocytes % (Manual) Nucleated RBC % Seg Neutrophils # Man Lymphocytes # (Manual) Monocytes # (Manual) PT INR APTT D-Dimer POC ABG pH ABG pH POC ABG pO2 ABG pO2 ABG HCO3 ABG O2 Saturation ABG Base Excess ABG Hemoglobin VBG pH Oxyhemoglobin Sodium Potassium Chloride Carbon Dioxide BUN Creatinine Glucose POC Glucose 261 H 277 H 301 H Lactic Acid Calcium Phosphorus Magnesium Iron TIBC Direct Bilirubin AST ALT Alkaline Phosphatase Total Creatine Kinase CK-MB (CK-2) C-Reactive Protein Total Protein Albumin Vitamin B12 Salicylates Acetaminophen Miscellaneous Test Crossmatch 04/09/19 04/09/19 04/09/19 05:35 05:35 05:35 WBC RBC 2.78 L Hgb 9.0 L Hct 26.7 L MCV MCH MCHC RDW 17.0 H Plt Count [place] % (Auto) Lymph # Seg Neuts % (Manual) Lymphocytes % (Manual) Nucleated RBC % Seg Neutrophils # Man Lymphocytes # (Manual) Monocytes # (Manual) PT INR APTT D-Dimer POC ABG pH ABG pH POC ABG pO2 ABG pO2 ABG HCO3 ABG O2 Saturation ABG Base Excess ABG Hemoglobin VBG pH Oxyhemoglobin Sodium Potassium Chloride Carbon Dioxide 31 H BUN Creatinine 0.2 L Glucose 218 H POC Glucose 240 H Lactic Acid Calcium Phosphorus Magnesium Iron TIBC Direct Bilirubin AST ALT Alkaline Phosphatase Total Creatine Kinase CK-MB (CK-2) C-Reactive Protein Total Protein Albumin Vitamin B12 Salicylates Acetaminophen Miscellaneous Test Crossmatch 04/09/19 09:01 WBC RBC Hgb Hct MCV MCH MCHC RDW Plt Count [place] % (Auto) Lymph # Seg Neuts % (Manual) Lymphocytes % (Manual) Nucleated RBC % Seg Neutrophils # Man Lymphocytes # (Manual) Monocytes # (Manual) PT INR APTT D-Dimer POC ABG pH ABG pH POC ABG pO2 ABG pO2 ABG HCO3 ABG O2 Saturation ABG Base Excess ABG Hemoglobin VBG pH Oxyhemoglobin Sodium Potassium Chloride Carbon Dioxide BUN Creatinine Glucose POC Glucose 160 H Lactic Acid Calcium Phosphorus Magnesium Iron TIBC Direct Bilirubin AST ALT Alkaline Phosphatase Total Creatine Kinase CK-MB (CK-2) C-Reactive Protein Total Protein Albumin Vitamin B12 Salicylates Acetaminophen Miscellaneous Test Crossmatch Allied health notes reviewed: RT
--- NOTE | 2019-04-09 11:44 | Progress Note ---
Assessment and Plan Cultures: 03/29 BCx: no growth 03/29 sputum Cx: C albicans 03/30/2019 MRSA nasal: negative A/P: 28 yo F PMHx T1DM admitted after receiving intubation and CPR due to non- responsiveness likely secondary to DKA 1. Sepsis - potential liver abscess v/s ischemia v/s trauma. Leukocytosis, tachycardia. 2. Aspiration pneumonia - Procal greatly elevated. Continue antibiotics. Can treat for 7 days. Jenn in sputum culture not a pathogen of the respiratory tract. 3. Liver lesion - ? abscess v/s other etiology. Would need additional imaging. 4. DKA - numerous metabolic derangements, per primary/ICU team 5. T1DM 6. Head lice - s/p treatment. 7. Acute encephalopathy: MRI showed anoxic brain injury. Guarded prognosis, now DNR. Recs: - d/[place] Cefepime and switched to Ceftriaxone - continue metronidazole 500mg q8h - overall guarded prognosis, now DNR and ?palliative care Linda Norman MD FACP [facility] ([facility] Subjective Date of service: 04/09/19 Principal diagnosis: Ac Hypoxemic Resp Failure; DKA; Severe sepsis with shock; ANGELICA Interval history: Remains unresponsive. No fever. Discussed with RN. Patient is now DNR. Objective - Exam Narrative Exam: Physical Exam: Constitutional: Intubated, unresponsive Head, Ears, Nose: Normocephalic, atraumatic. External ears, nose normal Eyes: Conjunctivae/corneas clear. No icterus. No ptosis. Neck: Supple, no meningeal signs. Intubated Oral: intubated Cardiovascular: S1, S2 normal. Respiratory: Good air entry, clear to auscultation bilaterally GI: Soft, non-tender; bowel sounds normal. No peritoneal signs. Musculoskeletal: No pedal edema, no cyanosis. Skin: No rash or abscess Hem/Lymphatic: No palpable cervical or supraclavicular nodes. No lymphangitis Psych: unresponsive Neurological: Intubated, unresponsive - Constitutional Vitals: Vital Signs Temp Pulse Resp BP Pulse Ox 97.8 F 109 H 14 111/74 99 04/09/19 08:00 04/09/19 11:32 04/09/19 11:32 04/09/19 11:32 04/09/19 11:32 Temperature -Last 24 Hours Temperature 97.8 F Temperature 98.5 F Temperature 99 F Temperature 98.8 F Temperature 98 F Temperature 98.6 F - Labs CBC & Chem 7: 04/09/19 05:35 04/09/19 05:35 Labs: Abnormal lab results 04/08/19 04/08/19 04/08/19 Range/Units 14:10 17:43 23:20 RBC (3.65-5.03) M/mm3 Hgb (10.1-14.3) gm/dl Hct (30.3-42.9) % RDW (13.2-15.2) % Carbon Dioxide (22-30) mmol/L Creatinine (0.7-1.2) mg/dL Glucose (65-100) mg/dL POC Glucose 139 H 261 H 277 H (70-105) 04/09/19 04/09/19 04/09/19 Range/Units 03:28 05:35 05:35 RBC 2.78 L (3.65-5.03) M/mm3 Hgb 9.0 L (10.1-14.3) gm/dl Hct 26.7 L (30.3-42.9) % RDW 17.0 H (13.2-15.2) % Carbon Dioxide 31 H (22-30) mmol/L Creatinine 0.2 L (0.7-1.2) mg/dL Glucose 218 H (65-100) mg/dL POC Glucose 301 H (70-105) 04/09/19 04/09/19 Range/Units 05:35 09:01 RBC (3.65-5.03) M/mm3 Hgb (10.1-14.3) gm/dl Hct (30.3-42.9) % RDW (13.2-15.2) % Carbon Dioxide (22-30) mmol/L Creatinine (0.7-1.2) mg/dL Glucose (65-100) mg/dL POC Glucose 240 H 160 H (70-105)
[2019-04-09] MEDS: ROCEPHIN/NS 1 GM/50 ML 1 GM/50 ML BAG IV SCH (14:07)
[2019-04-09] MEDS: ENOXAPARIN SUB-Q SCH (21:19)
[2019-04-09] MEDS: LANTUS SUB-Q SCH (21:24)
[2019-04-10] MEDS: FLAGYL 500 MG/100 ML 500 MG/100 ML BAG IV SCH ×3 (05:06→22:09)
[2019-04-10] MEDS: HumuLIN R SUB-Q SCH ×2 (05:22→13:31)
[2019-04-10 05:52] LABS: Hematocrit 27.9 % (30.3-42.9); Hemoglobin 9.2 gm/dl (10.1-14.3); Mean Corpuscular HGB Conc 33 % (30-34); Mean Corpuscular Volume 97 fl (79-97); Platelet Count 454 K/mm3 (140-440); Red Blood Count 2.88 M/mm3 (3.65-5.03)
[2019-04-10 06:09] LABS: BUN/Creatinine Ratio 45; Blood Urea Nitrogen 9 mg/dL (7-17); Calcium 8.4 mg/dL (8.4-10.2); Hemolysis Index 4
[2019-04-10] MEDS: ROCEPHIN/NS 1 GM/50 ML 1 GM/50 ML BAG IV SCH (09:50)
[2019-04-10] MEDS: SODIUM CHLORIDE FLUSH SYRINGE 10 ML IV SCH ×2 (09:50→22:09)
[2019-04-10] MEDS: KEPPRA PO SCH ×2 (09:50→22:08)
[2019-04-10] MEDS: PEPCID PO SCH ×2 (09:50→22:08)
--- NOTE | 2019-04-10 10:24 | Progress Note ---
Assessment and Plan Acute hypoxemic respiratory failure, on MVS Acute toxic metabolic encephalopathy; MRI consistent with diffuse anoxic injury Diabetic ketoacidosis. Severe sepsis with shock. Possible aspiration pneumonia. History of polysubstance abuse. Leukocytosis. Elevated serum transaminases, possible shock liver. Hyponatremia related to her severe hyperglycemia. Anemia that is macrocytic. History of seizure disorder. Severe metabolic acidosis. Acute kidney injury, possibly on chronic - transfuse PRBC's prn to keep Hb >/= 7.0 g/dl - continue daily SBT assessments as tolerated - continue enteral nutrition with glucerna and adjust rate per agency manager - continue bronchodilators with pulmonary hygiene per RT - VAP bundle addressed - continue to wean supplemental O2 to keep O2 sats > 90% - VTE prophylaxis-SCDs - Stress ulcer prophylaxis - continue accuchecks with glycemic control per SSI for target blood glucose 140-180 mg/dL - continue empiric antibiotics; de-escalate per ID rec's and based on clinical and microbiologic data - continue Keppra for seizures - continue mobility protocols / off loading for pressure ulcer prevention - Critical care bundles addressed - continue other care per attending / other consultants CONDITION: CRITICAL PROGNOSIS: GUARDED TO GRAVE CODE STATUS: FULL CODE The high probability of a clinically significant, sudden or life threatening deterioration of the [Neurology Respiratory, Cardiovascular] system(s) required my full and direct attention, intervention and personal management. The aggregate critical care time was [31] minutes. This time is in addition to time spent performing reported procedures but includes the following: [x] Data Review and interpretation [x] Patient assessment and monitoring of vital signs [x] Documentation [x] Medication orders and management Subjective Date of service: 04/10/19 Principal diagnosis: Ac Hypoxemic Resp Failure; DKA; Severe sepsis with shock; ANGELICA Interval history: Patient is seen today for: Acute Hypoxemic Resp Failure; Ac toxic metabolic encephalopathy; DKA; Severe sepsis with shock; Possible aspiration pneumonia; History of polysubstance abuse; History of seizure disorder; Acute kidney injury, possibly on chronic Seen and examined at bedside; 24hour events reviewed; nursing and respiratory care staff consulted; no adverse overnight events reported to me; resting peacefully in bed; AMS is persistent; remains off vasopressor but on MVS; no em esis or overt aspiration and no high grade fevers Vitals, labs,medications, chart reviewed. Discussed in ICU-IDT Objective Vital Signs - 12hr 04/09/19 04/09/19 04/09/19 23:00 23:07 23:52 Temperature 98.8 F Pulse Rate 114 H 112 H Pulse Rate [ From Monitor] Respiratory 22 21 Rate Blood Pressure 130/82 130/82 O2 Sat by Pulse 97 99 Oximetry 04/10/19 04/10/19 04/10/19 00:00 00:15 00:33 Temperature Pulse Rate 112 H 98 H Pulse Rate [ 111 H 111 H From Monitor] Respiratory 21 17 17 Rate Blood Pressure 122/79 O2 Sat by Pulse 97 99 99 Oximetry 04/10/19 04/10/19 04/10/19 00:35 01:00 02:00 Temperature Pulse Rate 114 H 115 H 116 H Pulse Rate [ From Monitor] Respiratory 24 19 19 Rate Blood Pressure 122/79 122/77 123/78 O2 Sat by Pulse 99 97 97 Oximetry 04/10/19 04/10/19 04/10/19 02:10 03:00 03:08 Temperature Pulse Rate 116 H 116 H Pulse Rate [ 111 H From Monitor] Respiratory 17 Rate Blood Pressure 123/78 O2 Sat by Pulse 99 100 Oximetry 04/10/19 04/10/19 04/10/19 03:23 04:00 04:10 Temperature 98.4 F Pulse Rate 108 H 109 H Pulse Rate [ From Monitor] Respiratory 18 Rate Blood Pressure 131/86 131/86 O2 Sat by Pulse 97 99 Oximetry 04/10/19 04/10/19 04/10/19 05:00 05:05 06:00 Temperature Pulse Rate 113 H 113 H 110 H Pulse Rate [ From Monitor] Respiratory 17 17 16 Rate Blood Pressure 127/84 124/79 O2 Sat by Pulse 94 99 95 Oximetry 04/10/19 04/10/19 04/10/19 07:00 07:42 07:59 Temperature 97.7 F Pulse Rate 117 H 115 H Pulse Rate [ From Monitor] Respiratory 18 13 Rate Blood Pressure 111/88 111/88 O2 Sat by Pulse 95 99 Oximetry 04/10/19 04/10/19 08:00 09:00 Temperature 97.7 F Pulse Rate 126 H 98 H Pulse Rate [ 114 H From Monitor] Respiratory 19 17 Rate Blood Pressure 129/87 118/69 O2 Sat by Pulse 95 97 Oximetry Constitutional: no acute distress, other (young CF normocephalic and atraumatic on MVS) Eyes: non-icteric ENT: oropharynx moist, other (ETT 22-23 cm Jessi) Neck: supple, no lymphadenopathy, no JVD Effort: mildly labored Ascultation: Bilateral: rhonchi Percussion: Bilateral: not dull Cardiovascular: regular rate and rhythm, other (sinus tachycardia) Gastrointestinal: normoactive bowel sounds, soft, non-tender Integumentary: erythema (noted on upper extremity) Extremities: no cyanosis, pink and warm, pulses normal, no ischemia or petechiae, edema (trace to 1+) Neurologic: unable to assess (remains unresponsive, opens eyes on suctioning, not obeying commands) Psychiatric: other (unable to assess) CBC and BMP: 04/10/19 04:15 04/10/19 04:15 ABG, PT/INR, D-dimer: ABG POC ABG pH 7.374 (7.35-7.45) 04/04/19 03:46 ABG pH 7.396 pH Units (7.350-7.450) 04/03/19 05:35 POC ABG pCO2 36.2 (35-45) 04/04/19 03:46 ABG pCO2 32.2 mm Hg 04/03/19 05:35 POC ABG pO2 96 (80-105) 04/04/19 03:46 ABG pO2 97.7 mm Hg (80.0-90.0) H 04/03/19 05:35 POC ABG HCO3 21.2 (22-26 mml/L) 04/04/19 03:46 POC ABG Total CO2 22 (23-27mmol/L) 04/04/19 03:46 POC ABG O2 Sat 97 04/04/19 03:46 ABG O2 Saturation 97.6 % (95.0-99.0) 04/03/19 05:35 PT/INR, D-dimer PT 13.9 Sec. (12.2-14.9) 04/01/19 17:14 INR 1.10 (0.87-1.13) 04/01/19 17:14 4526.86 ng/mlDDU (0-234) H 04/06/19 00:06 Abnormal lab findings: Abnormal Labs 03/29/19 03/29/19 03/29/19 19:11 19:20 19:20 WBC 26.7 H RBC 2.52 L Hgb 8.1 L Hct MCV 148 H MCH MCHC 22 L RDW 18.5 H Plt Count [place] % (Auto) Lymph # Seg Neuts % (Manual) 82.0 H Lymphocytes % (Manual) 7.0 L Nucleated RBC % Seg Neutrophils # Man 21.9 H Lymphocytes # (Manual) Monocytes # (Manual) 1.9 H PT 21.8 H INR 1.95 H APTT 74.5 H* D-Dimer POC ABG pH ABG pH POC ABG pO2 ABG pO2 ABG HCO3 ABG O2 Saturation ABG Base Excess ABG Hemoglobin VBG pH Oxyhemoglobin Sodium Potassium Chloride Carbon Dioxide BUN Creatinine Glucose POC Glucose > 500 H Lactic Acid Calcium Phosphorus Magnesium Iron TIBC Direct Bilirubin AST ALT Alkaline Phosphatase Total Creatine Kinase CK-MB (CK-2) C-Reactive Protein Total Protein Albumin Vitamin B12 Salicylates Acetaminophen Miscellaneous Test Crossmatch 03/29/19 03/29/19 03/29/19 19:20 19:47 20:59 WBC RBC Hgb Hct MCV MCH MCHC RDW Plt Count [place] % (Auto) Lymph # Seg Neuts % (Manual) Lymphocytes % (Manual) Nucleated RBC % Seg Neutrophils # Man Lymphocytes # (Manual) Monocytes # (Manual) PT INR APTT D-Dimer POC ABG pH 6.892 L ABG pH POC ABG pO2 236 H ABG pO2 ABG HCO3 ABG O2 Saturation ABG Base Excess ABG Hemoglobin VBG pH 6.800 L* Oxyhemoglobin Sodium 118 L* Potassium 9.0 H* Chloride 64.5 L Carbon Dioxide 7 L* BUN 53 H Creatinine 2.1 H Glucose 2196 H* POC Glucose Lactic Acid Calcium 12.4 H* Phosphorus Magnesium Iron TIBC Direct Bilirubin AST 3900 H ALT 1034 H Alkaline Phosphatase 316 H Total Creatine Kinase CK-MB (CK-2) C-Reactive Protein Total Protein 5.1 L Albumin 2.8 L Vitamin B12 Salicylates Acetaminophen Miscellaneous Test Crossmatch 03/29/19 03/29/19 03/29/19 22:45 22:45 22:45 WBC RBC Hgb Hct MCV MCH MCHC RDW Plt Count [place] % (Auto) Lymph # Seg Neuts % (Manual) Lymphocytes % (Manual) Nucleated RBC % Seg Neutrophils # Man Lymphocytes # (Manual) Monocytes # (Manual) PT INR APTT D-Dimer POC ABG pH ABG pH POC ABG pO2 ABG pO2 ABG HCO3 ABG O2 Saturation ABG Base Excess ABG Hemoglobin VBG pH Oxyhemoglobin Sodium 132 L D Potassium 7.0 H* Chloride 84.3 L Carbon Dioxide 3 L* BUN 48 H Creatinine 1.8 H Glucose 1779 H* POC Glucose Lactic Acid Calcium Phosphorus 21.70 H Magnesium 4.70 H Iron TIBC Direct Bilirubin AST ALT Alkaline Phosphatase Total Creatine Kinase 363 H CK-MB (CK-2) C-Reactive Protein Total Protein Albumin Vitamin B12 Salicylates Acetaminophen Miscellaneous Test Crossmatch 03/29/19 03/29/19 03/30/19 Unknown Unknown 00:11 WBC RBC Hgb Hct MCV MCH MCHC RDW Plt Count [place] % (Auto) Lymph # Seg Neuts % (Manual) Lymphocytes % (Manual) Nucleated RBC % Seg Neutrophils # Man Lymphocytes # (Manual) Monocytes # (Manual) PT INR APTT D-Dimer POC ABG pH ABG pH POC ABG pO2 ABG pO2 ABG HCO3 ABG O2 Saturation ABG Base Excess ABG Hemoglobin VBG pH Oxyhemoglobin Sodium 122 L Potassium 7.9 H* 6.4 H* Chloride 75.3 L 89.7 L Carbon Dioxide 3 L* 12 L D BUN 52 H 46 H Creatinine 2.0 H 1.7 H Glucose 2043 H* 1591 H* POC Glucose Lactic Acid Calcium 7.8 L Phosphorus 19.30 H Magnesium 3.90 H Iron TIBC Direct Bilirubin AST ALT Alkaline Phosphatase Total Creatine Kinase CK-MB (CK-2) C-Reactive Protein Total Protein Albumin Vitamin B12 Salicylates Acetaminophen Miscellaneous Test Crossmatch 03/30/19 03/30/19 03/30/19 00:11 02:14 02:14 WBC RBC Hgb Hct MCV MCH MCHC RDW Plt Count [place] % (Auto) Lymph # Seg Neuts % (Manual) Lymphocytes % (Manual) Nucleated RBC % Seg Neutrophils # Man Lymphocytes # (Manual) Monocytes # (Manual) PT INR APTT D-Dimer POC ABG pH ABG pH POC ABG pO2 ABG pO2 ABG HCO3 ABG O2 Saturation ABG Base Excess ABG Hemoglobin VBG pH Oxyhemoglobin Sodium Potassium Chloride Carbon Dioxide 9 L* BUN 45 H Creatinine 1.7 H Glucose 1155 H* POC Glucose Lactic Acid Calcium 7.9 L Phosphorus 10.90 H D 5.30 H D Magnesium 3.10 H 2.90 H Iron TIBC Direct Bilirubin AST ALT Alkaline Phosphatase Total Creatine Kinase CK-MB (CK-2) C-Reactive Protein Total Protein Albumin Vitamin B12 Salicylates Acetaminophen Miscellaneous Test Crossmatch 03/30/19 03/30/19 03/30/19 03:15 03:30 04:23 WBC 18.0 H RBC 2.31 L Hgb 7.3 L Hct 23.8 L D MCV 103 H MCH MCHC RDW 17.1 H Plt Count [place] % (Auto) Lymph # Seg Neuts % (Manual) 79.0 H Lymphocytes % (Manual) Nucleated RBC % Seg Neutrophils # Man 14.2 H Lymphocytes # (Manual) Monocytes # (Manual) PT INR APTT D-Dimer POC ABG pH 7.251 L ABG pH POC ABG pO2 156 H ABG pO2 ABG HCO3 ABG O2 Saturation ABG Base Excess ABG Hemoglobin VBG pH Oxyhemoglobin Sodium Potassium Chloride Carbon Dioxide BUN Creatinine Glucose POC Glucose Lactic Acid Calcium Phosphorus Magnesium Iron TIBC Direct Bilirubin AST ALT Alkaline Phosphatase Total Creatine Kinase CK-MB (CK-2) C-Reactive Protein Total Protein Albumin Vitamin B12 Salicylates Acetaminophen Miscellaneous Test Crossmatch See Detail 03/30/19 03/30/19 03/30/19 05:26 05:26 10:38 WBC RBC Hgb Hct MCV MCH MCHC RDW Plt Count [place] % (Auto) Lymph # Seg Neuts % (Manual) Lymphocytes % (Manual) Nucleated RBC % Seg Neutrophils # Man Lymphocytes # (Manual) Monocytes # (Manual) PT INR APTT D-Dimer POC ABG pH ABG pH POC ABG pO2 ABG pO2 ABG HCO3 ABG O2 Saturation ABG Base Excess ABG Hemoglobin VBG pH Oxyhemoglobin Sodium 158 H D Potassium 3.5 L Chloride 109.3 H Carbon Dioxide 19 L D BUN 40 H Creatinine 1.5 H Glucose 760 H* POC Glucose 380 H Lactic Acid Calcium 7.3 L Phosphorus Magnesium 2.60 H Iron TIBC Direct Bilirubin AST 47145 H ALT 2156 H Alkaline Phosphatase 271 H Total Creatine Kinase 2465 H CK-MB (CK-2) 52.7 H C-Reactive Protein Total Protein 4.5 L Albumin 2.4 L Vitamin B12 Salicylates Acetaminophen Miscellaneous Test Crossmatch 0903/30/19 03/30/19 11:08 12:25 12:57 WBC RBC Hgb Hct MCV MCH MCHC RDW Plt Count [place] % (Auto) Lymph # Seg Neuts % (Manual) Lymphocytes % (Manual) Nucleated RBC % Seg Neutrophils # Man Lymphocytes # (Manual) Monocytes # (Manual) PT INR APTT D-Dimer POC ABG pH ABG pH POC ABG pO2 ABG pO2 ABG HCO3 ABG O2 Saturation ABG Base Excess ABG Hemoglobin VBG pH Oxyhemoglobin Sodium 156 H Potassium 3.2 L Chloride 116.4 H Carbon Dioxide 21 L BUN 37 H Creatinine Glucose 162 H POC Glucose 263 H 196 H Lactic Acid Calcium 7.2 L Phosphorus Magnesium Iron TIBC Direct Bilirubin AST ALT Alkaline Phosphatase Total Creatine Kinase CK-MB (CK-2) C-Reactive Protein Total Protein Albumin Vitamin B12 Salicylates Acetaminophen Miscellaneous Test Crossmatch 03/30/19 03/30/19 03/30/19 12:57 12:57 12:57 WBC RBC Hgb Hct MCV MCH MCHC RDW Plt Count [place] % (Auto) Lymph # Seg Neuts % (Manual) Lymphocytes % (Manual) Nucleated RBC % Seg Neutrophils # Man Lymphocytes # (Manual) Monocytes # (Manual) PT 21.0 H INR 1.86 H APTT D-Dimer POC ABG pH ABG pH POC ABG pO2 ABG pO2 ABG HCO3 ABG O2 Saturation ABG Base Excess ABG Hemoglobin VBG pH Oxyhemoglobin Sodium Potassium Chloride Carbon Dioxide BUN Creatinine Glucose POC Glucose Lactic Acid 9.00 H* Calcium Phosphorus Magnesium Iron TIBC Direct Bilirubin AST ALT Alkaline Phosphatase Total Creatine Kinase CK-MB (CK-2) C-Reactive Protein 2.40 H Total Protein Albumin Vitamin B12 Salicylates Acetaminophen Miscellaneous Test Crossmatch 03/30/19 03/30/19 03/30/19 13:23 14:00 14:47 WBC RBC Hgb Hct MCV MCH MCHC RDW Plt Count [place] % (Auto) Lymph # Seg Neuts % (Manual) Lymphocytes % (Manual) Nucleated RBC % Seg Neutrophils # Man Lymphocytes # (Manual) Monocytes # (Manual) PT INR APTT D-Dimer POC ABG pH ABG pH POC ABG pO2 ABG pO2 ABG HCO3 ABG O2 Saturation ABG Base Excess ABG Hemoglobin VBG pH Oxyhemoglobin Sodium Potassium Chloride Carbon Dioxide BUN Creatinine Glucose POC Glucose 176 H 245 H Lactic Acid Calcium Phosphorus Magnesium Iron TIBC Direct Bilirubin AST ALT Alkaline Phosphatase Total Creatine Kinase CK-MB (CK-2) C-Reactive Protein Total Protein Albumin Vitamin B12 Salicylates Acetaminophen Miscellaneous Test Flexitest 1 H Crossmatch 03/30/19 03/30/19 03/30/19 16:11 17:11 17:46 WBC RBC Hgb Hct MCV MCH MCHC RDW Plt Count [place] % (Auto) Lymph # Seg Neuts % (Manual) Lymphocytes % (Manual) Nucleated RBC % Seg Neutrophils # Man Lymphocytes # (Manual) Monocytes # (Manual) PT INR APTT D-Dimer POC ABG pH ABG pH POC ABG pO2 ABG pO2 ABG HCO3 ABG O2 Saturation ABG Base Excess ABG Hemoglobin VBG pH Oxyhemoglobin Sodium Potassium Chloride Carbon Dioxide BUN Creatinine Glucose POC Glucose 181 H 167 H 125 H Lactic Acid Calcium Phosphorus Magnesium Iron TIBC Direct Bilirubin AST ALT Alkaline Phosphatase Total Creatine Kinase CK-MB (CK-2) C-Reactive Protein Total Protein Albumin Vitamin B12 Salicylates Acetaminophen Miscellaneous Test Crossmatch 03/30/19 03/30/19 03/30/19 18:59 21:31 22:19 WBC RBC Hgb Hct MCV MCH MCHC RDW Plt Count [place] % (Auto) Lymph # Seg Neuts % (Manual) Lymphocytes % (Manual) Nucleated RBC % Seg Neutrophils # Man Lymphocytes # (Manual) Monocytes # (Manual) PT INR APTT D-Dimer POC ABG pH ABG pH POC ABG pO2 ABG pO2 ABG HCO3 ABG O2 Saturation ABG Base Excess ABG Hemoglobin VBG pH Oxyhemoglobin Sodium Potassium Chloride Carbon Dioxide BUN Creatinine Glucose POC Glucose 140 H 166 H 115 H Lactic Acid Calcium Phosphorus Magnesium Iron TIBC Direct Bilirubin AST ALT Alkaline Phosphatase Total Creatine Kinase CK-MB (CK-2) C-Reactive Protein Total Protein Albumin Vitamin B12 Salicylates Acetaminophen Miscellaneous Test Crossmatch 03/30/19 03/30/19 03/30/19 23:13 Unknown Unknown WBC RBC Hgb Hct MCV MCH MCHC RDW Plt Count [place] % (Auto) Lymph # Seg Neuts % (Manual) Lymphocytes % (Manual) Nucleated RBC % Seg Neutrophils # Man Lymphocytes # (Manual) Monocytes # (Manual) PT INR APTT D-Dimer POC ABG pH ABG pH POC ABG pO2 ABG pO2 47.8 L ABG HCO3 18.8 L ABG O2 Saturation 83.8 L ABG Base Excess -5.4 L ABG Hemoglobin 6.8 L VBG pH Oxyhemoglobin 81.8 L Sodium 157 H Potassium 3.3 L Chloride 117.9 H Carbon Dioxide 20 L BUN 36 H Creatinine Glucose 150 H POC Glucose 112 H Lactic Acid Calcium 7.2 L Phosphorus Magnesium Iron TIBC Direct Bilirubin AST ALT Alkaline Phosphatase Total Creatine Kinase CK-MB (CK-2) C-Reactive Protein Total Protein Albumin Vitamin B12 Salicylates Acetaminophen Miscellaneous Test Crossmatch 03/30/19 03/30/19 03/31/19 Unknown Unknown 00:03 WBC RBC Hgb Hct MCV MCH MCHC RDW Plt Count [place] % (Auto) Lymph # Seg Neuts % (Manual) Lymphocytes % (Manual) Nucleated RBC % Seg Neutrophils # Man Lymphocytes # (Manual) Monocytes # (Manual) PT INR APTT D-Dimer POC ABG pH ABG pH POC ABG pO2 ABG pO2 ABG HCO3 ABG O2 Saturation ABG Base Excess ABG Hemoglobin VBG pH Oxyhemoglobin Sodium Potassium Chloride Carbon Dioxide BUN Creatinine Glucose POC Glucose 188 H Lactic Acid Calcium Phosphorus Magnesium Iron TIBC Direct Bilirubin AST ALT Alkaline Phosphatase Total Creatine Kinase CK-MB (CK-2) C-Reactive Protein Total Protein Albumin Vitamin B12 Salicylates 0.8 L Acetaminophen < 5.0 L Miscellaneous Test Crossmatch 03/31/19 03/31/19 03/31/19 01:18 03:07 03:50 WBC RBC Hgb Hct MCV MCH MCHC RDW Plt Count [place] % (Auto) Lymph # Seg Neuts % (Manual) Lymphocytes % (Manual) Nucleated RBC % Seg Neutrophils # Man Lymphocytes # (Manual) Monocytes # (Manual) PT INR APTT D-Dimer POC ABG pH ABG pH 7.525 H POC ABG pO2 ABG pO2 178.0 H ABG HCO3 19.5 L ABG O2 Saturation 99.2 H ABG Base Excess -3.1 L ABG Hemoglobin 5.8 L VBG pH Oxyhemoglobin Sodium Potassium Chloride Carbon Dioxide BUN Creatinine Glucose POC Glucose 114 H 107 H Lactic Acid Calcium Phosphorus Magnesium Iron TIBC Direct Bilirubin AST ALT Alkaline Phosphatase Total Creatine Kinase CK-MB (CK-2) C-Reactive Protein Total Protein Albumin Vitamin B12 Salicylates Acetaminophen Miscellaneous Test Crossmatch 03/31/19 03/31/19 03/31/19 03:51 03:51 04:05 WBC RBC 1.89 L Hgb 6.1 L Hct 18.2 L* MCV MCH MCHC RDW 17.7 H Plt Count 89 L [place] % (Auto) Lymph # Seg Neuts % (Manual) 86.0 H Lymphocytes % (Manual) 10.0 L Nucleated RBC % 1.0 H Seg Neutrophils # Man Lymphocytes # (Manual) 0.7 L Monocytes # (Manual) PT INR APTT D-Dimer POC ABG pH ABG pH POC ABG pO2 ABG pO2 ABG HCO3 ABG O2 Saturation ABG Base Excess ABG Hemoglobin VBG pH Oxyhemoglobin Sodium 151 H Potassium 3.2 L Chloride 119.4 H Carbon Dioxide 17 L BUN 35 H Creatinine Glucose 139 H POC Glucose 153 H Lactic Acid Calcium 7.1 L Phosphorus Magnesium Iron TIBC Direct Bilirubin AST ALT Alkaline Phosphatase Total Creatine Kinase CK-MB (CK-2) C-Reactive Protein Total Protein Albumin Vitamin B12 Salicylates Acetaminophen Miscellaneous Test Crossmatch 03/31/19 03/31/19 03/31/19 05:05 05:35 06:23 WBC RBC Hgb Hct MCV MCH MCHC RDW Plt Count [place] % (Auto) Lymph # Seg Neuts % (Manual) Lymphocytes % (Manual) Nucleated RBC % Seg Neutrophils # Man Lymphocytes # (Manual) Monocytes # (Manual) PT INR APTT D-Dimer POC ABG pH ABG pH POC ABG pO2 ABG pO2 ABG HCO3 ABG O2 Saturation ABG Base Excess ABG Hemoglobin VBG pH Oxyhemoglobin Sodium Potassium Chloride Carbon Dioxide BUN Creatinine Glucose POC Glucose 176 H 133 H Lactic Acid 3.20 H* Calcium Phosphorus Magnesium Iron TIBC Direct Bilirubin AST ALT Alkaline Phosphatase Total Creatine Kinase CK-MB (CK-2) C-Reactive Protein Total Protein Albumin Vitamin B12 Salicylates Acetaminophen Miscellaneous Test Crossmatch 03/31/19 03/31/19 03/31/19 07:50 07:51 08:20 WBC RBC Hgb Hct MCV MCH MCHC RDW Plt Count [place] % (Auto) Lymph # Seg Neuts % (Manual) Lymphocytes % (Manual) Nucleated RBC % Seg Neutrophils # Man Lymphocytes # (Manual) Monocytes # (Manual) PT INR APTT D-Dimer POC ABG pH ABG pH POC ABG pO2 ABG pO2 ABG HCO3 ABG O2 Saturation ABG Base Excess ABG Hemoglobin VBG pH Oxyhemoglobin Sodium Potassium Chloride Carbon Dioxide BUN Creatinine Glucose POC Glucose 135 H Lactic Acid 3.30 H* Calcium Phosphorus Magnesium Iron 26 L TIBC 193 L Direct Bilirubin AST ALT Alkaline Phosphatase Total Creatine Kinase CK-MB (CK-2) C-Reactive Protein Total Protein Albumin Vitamin B12 Salicylates Acetaminophen Miscellaneous Test Crossmatch 03/31/19 03/31/19 03/31/19 08:20 08:20 09:06 WBC RBC Hgb Hct MCV MCH MCHC RDW Plt Count [place] % (Auto) Lymph # Seg Neuts % (Manual) Lymphocytes % (Manual) Nucleated RBC % Seg Neutrophils # Man Lymphocytes # (Manual) Monocytes # (Manual) PT INR APTT D-Dimer POC ABG pH ABG pH POC ABG pO2 ABG pO2 ABG HCO3 ABG O2 Saturation ABG Base Excess ABG Hemoglobin VBG pH Oxyhemoglobin Sodium 153 H Potassium 3.0 L Chloride 118.9 H Carbon Dioxide 18 L BUN 37 H Creatinine Glucose 132 H POC Glucose 145 H Lactic Acid Calcium 7.1 L Phosphorus Magnesium Iron TIBC Direct Bilirubin AST ALT Alkaline Phosphatase Total Creatine Kinase CK-MB (CK-2) C-Reactive Protein Total Protein Albumin Vitamin B12 > 2000 H Salicylates Acetaminophen Miscellaneous Test Crossmatch 03/31/19 03/31/19 03/31/19 10:47 11:49 13:04 WBC RBC Hgb Hct MCV MCH MCHC RDW Plt Count [place] % (Auto) Lymph # Seg Neuts % (Manual) Lymphocytes % (Manual) Nucleated RBC % Seg Neutrophils # Man Lymphocytes # (Manual) Monocytes # (Manual) PT INR APTT D-Dimer POC ABG pH ABG pH POC ABG pO2 ABG pO2 ABG HCO3 ABG O2 Saturation ABG Base Excess ABG Hemoglobin VBG pH Oxyhemoglobin Sodium Potassium Chloride Carbon Dioxide BUN Creatinine Glucose POC Glucose 153 H 174 H 214 H Lactic Acid Calcium Phosphorus Magnesium Iron TIBC Direct Bilirubin AST ALT Alkaline Phosphatase Total Creatine Kinase CK-MB (CK-2) C-Reactive Protein Total Protein Albumin Vitamin B12 Salicylates Acetaminophen Miscellaneous Test Crossmatch 03/31/19 03/31/19 03/31/19 13:42 15:08 16:08 WBC RBC Hgb Hct MCV MCH MCHC RDW Plt Count [place] % (Auto) Lymph # Seg Neuts % (Manual) Lymphocytes % (Manual) Nucleated RBC % Seg Neutrophils # Man Lymphocytes # (Manual) Monocytes # (Manual) PT INR APTT D-Dimer POC ABG pH ABG pH POC ABG pO2 ABG pO2 ABG HCO3 ABG O2 Saturation ABG Base Excess ABG Hemoglobin VBG pH Oxyhemoglobin Sodium Potassium Chloride Carbon Dioxide BUN Creatinine Glucose POC Glucose 186 H 136 H 150 H Lactic Acid Calcium Phosphorus Magnesium Iron TIBC Direct Bilirubin AST ALT Alkaline Phosphatase Total Creatine Kinase CK-MB (CK-2) C-Reactive Protein Total Protein Albumin Vitamin B12 Salicylates Acetaminophen Miscellaneous Test Crossmatch 03/31/19 03/31/19 03/31/19 17:11 17:30 17:30 WBC RBC Hgb 7.7 L Hct 23.0 L MCV MCH MCHC RDW Plt Count [place] % (Auto) Lymph # Seg Neuts % (Manual) Lymphocytes % (Manual) Nucleated RBC % Seg Neutrophils # Man Lymphocytes # (Manual) Monocytes # (Manual) PT INR APTT D-Dimer POC ABG pH ABG pH POC ABG pO2 ABG pO2 ABG HCO3 ABG O2 Saturation ABG Base Excess ABG Hemoglobin VBG pH Oxyhemoglobin Sodium 153 H Potassium 3.5 L Chloride 119.3 H Carbon Dioxide 20 L BUN 34 H Creatinine Glucose 162 H POC Glucose 140 H Lactic Acid Calcium 7.6 L Phosphorus Magnesium Iron TIBC Direct Bilirubin AST ALT Alkaline Phosphatase Total Creatine Kinase CK-MB (CK-2) C-Reactive Protein Total Protein Albumin Vitamin B12 Salicylates Acetaminophen Miscellaneous Test Crossmatch 03/31/19 03/31/19 03/31/19 17:59 18:58 20:28 WBC RBC Hgb Hct MCV MCH MCHC RDW Plt Count [place] % (Auto) Lymph # Seg Neuts % (Manual) Lymphocytes % (Manual) Nucleated RBC % Seg Neutrophils # Man Lymphocytes # (Manual) Monocytes # (Manual) PT INR APTT D-Dimer POC ABG pH ABG pH POC ABG pO2 ABG pO2 ABG HCO3 ABG O2 Saturation ABG Base Excess ABG Hemoglobin VBG pH Oxyhemoglobin Sodium Potassium Chloride Carbon Dioxide BUN Creatinine Glucose POC Glucose 156 H 152 H 138 H Lactic Acid Calcium Phosphorus Magnesium Iron TIBC Direct Bilirubin AST ALT Alkaline Phosphatase Total Creatine Kinase CK-MB (CK-2) C-Reactive Protein Total Protein Albumin Vitamin B12 Salicylates Acetaminophen Miscellaneous Test Crossmatch 03/31/19 03/31/19 03/31/19 21:09 22:15 23:10 WBC RBC Hgb Hct MCV MCH MCHC RDW Plt Count [place] % (Auto) Lymph # Seg Neuts % (Manual) Lymphocytes % (Manual) Nucleated RBC % Seg Neutrophils # Man Lymphocytes # (Manual) Monocytes # (Manual) PT INR APTT D-Dimer POC ABG pH ABG pH POC ABG pO2 ABG pO2 ABG HCO3 ABG O2 Saturation ABG Base Excess ABG Hemoglobin VBG pH Oxyhemoglobin Sodium Potassium Chloride Carbon Dioxide BUN Creatinine Glucose POC Glucose 136 H 137 H 148 H Lactic Acid Calcium Phosphorus Magnesium Iron TIBC Direct Bilirubin AST ALT Alkaline Phosphatase Total Creatine Kinase CK-MB (CK-2) C-Reactive Protein Total Protein Albumin Vitamin B12 Salicylates Acetaminophen Miscellaneous Test Crossmatch 04/01/19 04/01/19 04/01/19 00:05 01:17 02:11 WBC RBC Hgb Hct MCV MCH MCHC RDW Plt Count [place] % (Auto) Lymph # Seg Neuts % (Manual) Lymphocytes % (Manual) Nucleated RBC % Seg Neutrophils # Man Lymphocytes # (Manual) Monocytes # (Manual) PT INR APTT D-Dimer POC ABG pH ABG pH POC ABG pO2 ABG pO2 ABG HCO3 ABG O2 Saturation ABG Base Excess ABG Hemoglobin VBG pH Oxyhemoglobin Sodium Potassium Chloride Carbon Dioxide BUN Creatinine Glucose POC Glucose 143 H 151 H 155 H Lactic Acid Calcium Phosphorus Magnesium Iron TIBC Direct Bilirubin AST ALT Alkaline Phosphatase Total Creatine Kinase CK-MB (CK-2) C-Reactive Protein Total Protein Albumin Vitamin B12 Salicylates Acetaminophen Miscellaneous Test Crossmatch 04/01/19 04/01/19 04/01/19 03:12 04:03 04:16 WBC RBC Hgb Hct MCV MCH MCHC RDW Plt Count [place] % (Auto) Lymph # Seg Neuts % (Manual) Lymphocytes % (Manual) Nucleated RBC % Seg Neutrophils # Man Lymphocytes # (Manual) Monocytes # (Manual) PT INR APTT D-Dimer POC ABG pH ABG pH POC ABG pO2 ABG pO2 ABG HCO3 ABG O2 Saturation ABG Base Excess ABG Hemoglobin VBG pH Oxyhemoglobin Sodium Potassium Chloride Carbon Dioxide BUN Creatinine Glucose POC Glucose 140 H 143 H 142 H Lactic Acid Calcium Phosphorus Magnesium Iron TIBC Direct Bilirubin AST ALT Alkaline Phosphatase Total Creatine Kinase CK-MB (CK-2) C-Reactive Protein Total Protein Albumin Vitamin B12 Salicylates Acetaminophen Miscellaneous Test Crossmatch 04/01/19 04/01/19 04/01/19 05:01 05:01 05:08 WBC RBC 2.05 L Hgb 6.8 L Hct 20.5 L MCV 100 H MCH 33 H MCHC RDW 17.7 H Plt Count 53 L [place] % (Auto) Lymph # Seg Neuts % (Manual) 71.0 H Lymphocytes % (Manual) Nucleated RBC % Seg Neutrophils # Man Lymphocytes # (Manual) Monocytes # (Manual) PT INR APTT D-Dimer POC ABG pH ABG pH POC ABG pO2 ABG pO2 ABG HCO3 ABG O2 Saturation ABG Base Excess ABG Hemoglobin VBG pH Oxyhemoglobin Sodium Potassium Chloride Carbon Dioxide BUN Creatinine Glucose POC Glucose 119 H Lactic Acid Calcium Phosphorus Magnesium Iron TIBC Direct Bilirubin 0.3 H AST 4601 H ALT 1542 H Alkaline Phosphatase 185 H Total Creatine Kinase CK-MB (CK-2) C-Reactive Protein Total Protein 3.8 L Albumin 1.6 L Vitamin B12 Salicylates Acetaminophen Miscellaneous Test Crossmatch 04/01/19 04/01/19 04/01/19 05:23 06:37 08:15 WBC RBC Hgb Hct MCV MCH MCHC RDW Plt Count [place] % (Auto) Lymph # Seg Neuts % (Manual) Lymphocytes % (Manual) Nucleated RBC % Seg Neutrophils # Man Lymphocytes # (Manual) Monocytes # (Manual) PT INR APTT D-Dimer POC ABG pH ABG pH POC ABG pO2 ABG pO2 ABG HCO3 ABG O2 Saturation ABG Base Excess ABG Hemoglobin VBG pH Oxyhemoglobin Sodium Potassium Chloride Carbon Dioxide BUN Creatinine Glucose POC Glucose 115 H 124 H 138 H Lactic Acid Calcium Phosphorus Magnesium Iron TIBC Direct Bilirubin AST ALT Alkaline Phosphatase Total Creatine Kinase CK-MB (CK-2) C-Reactive Protein Total Protein Albumin Vitamin B12 Salicylates Acetaminophen Miscellaneous Test Crossmatch 04/01/19 04/01/19 04/01/19 09:50 10:10 10:31 WBC RBC Hgb 6.5 L Hct 19.2 L* MCV MCH MCHC RDW Plt Count [place] % (Auto) Lymph # Seg Neuts % (Manual) Lymphocytes % (Manual) Nucleated RBC % Seg Neutrophils # Man Lymphocytes # (Manual) Monocytes # (Manual) PT INR APTT D-Dimer POC ABG pH ABG pH POC ABG pO2 ABG pO2 ABG HCO3 ABG O2 Saturation ABG Base Excess ABG Hemoglobin VBG pH Oxyhemoglobin Sodium 149 H Potassium 3.5 L Chloride 119.9 H Carbon Dioxide 21 L BUN 33 H Creatinine 0.5 L Glucose 142 H POC Glucose 185 H Lactic Acid Calcium 7.3 L Phosphorus Magnesium Iron TIBC Direct Bilirubin AST 3686 H ALT 1440 H Alkaline Phosphatase 185 H Total Creatine Kinase CK-MB (CK-2) C-Reactive Protein Total Protein 3.7 L Albumin 1.8 L Vitamin B12 Salicylates Acetaminophen Miscellaneous Test Crossmatch 04/01/19 04/01/19 04/01/19 11:35 13:05 14:35 WBC RBC Hgb Hct MCV MCH MCHC RDW Plt Count [place] % (Auto) Lymph # Seg Neuts % (Manual) Lymphocytes % (Manual) Nucleated RBC % Seg Neutrophils # Man Lymphocytes # (Manual) Monocytes # (Manual) PT INR APTT D-Dimer POC ABG pH ABG pH POC ABG pO2 ABG pO2 ABG HCO3 ABG O2 Saturation ABG Base Excess ABG Hemoglobin VBG pH Oxyhemoglobin Sodium Potassium Chloride Carbon Dioxide BUN Creatinine Glucose POC Glucose 201 H 169 H 134 H Lactic Acid Calcium Phosphorus Magnesium Iron TIBC Direct Bilirubin AST ALT Alkaline Phosphatase Total Creatine Kinase CK-MB (CK-2) C-Reactive Protein Total Protein Albumin Vitamin B12 Salicylates Acetaminophen Miscellaneous Test Crossmatch 04/01/19 04/01/19 04/01/19 17:13 17:14 18:30 WBC RBC Hgb Hct MCV MCH MCHC RDW Plt Count [place] % (Auto) Lymph # Seg Neuts % (Manual) Lymphocytes % (Manual) Nucleated RBC % Seg Neutrophils # Man Lymphocytes # (Manual) Monocytes # (Manual) PT INR APTT D-Dimer 5203.68 H POC ABG pH ABG pH POC ABG pO2 ABG pO2 ABG HCO3 ABG O2 Saturation ABG Base Excess ABG Hemoglobin VBG pH Oxyhemoglobin Sodium Potassium Chloride Carbon Dioxide BUN Creatinine Glucose POC Glucose 69 L 128 H Lactic Acid Calcium Phosphorus Magnesium Iron TIBC Direct Bilirubin AST ALT Alkaline Phosphatase Total Creatine Kinase CK-MB (CK-2) C-Reactive Protein Total Protein Albumin Vitamin B12 Salicylates Acetaminophen Miscellaneous Test Crossmatch 04/01/19 04/01/19 04/02/19 22:50 Unknown 03:40 WBC RBC Hgb Hct MCV MCH MCHC RDW Plt Count [place] % (Auto) Lymph # Seg Neuts % (Manual) Lymphocytes % (Manual) Nucleated RBC % Seg Neutrophils # Man Lymphocytes # (Manual) Monocytes # (Manual) PT INR APTT D-Dimer POC ABG pH ABG pH POC ABG pO2 ABG pO2 78.3 L 142.8 H ABG HCO3 15.5 L ABG O2 Saturation ABG Base Excess -3.5 L -8.2 L ABG Hemoglobin 6.8 L 8.2 L VBG pH Oxyhemoglobin 94.3 L Sodium Potassium Chloride Carbon Dioxide BUN Creatinine Glucose POC Glucose 342 H Lactic Acid Calcium Phosphorus Magnesium Iron TIBC Direct Bilirubin AST ALT Alkaline Phosphatase Total Creatine Kinase CK-MB (CK-2) C-Reactive Protein Total Protein Albumin Vitamin B12 Salicylates Acetaminophen Miscellaneous Test Crossmatch 04/02/19 04/02/19 04/02/19 03:49 06:50 07:48 WBC RBC 2.65 L Hgb 8.6 L Hct 25.1 L MCV MCH MCHC RDW 17.6 H Plt Count 48 L [place] % (Auto) Lymph # Seg Neuts % (Manual) Lymphocytes % (Manual) Nucleated RBC % Seg Neutrophils # Man Lymphocytes # (Manual) Monocytes # (Manual) PT INR APTT D-Dimer POC ABG pH ABG pH POC ABG pO2 ABG pO2 ABG HCO3 ABG O2 Saturation ABG Base Excess ABG Hemoglobin VBG pH Oxyhemoglobin Sodium Potassium Chloride Carbon Dioxide BUN Creatinine Glucose POC Glucose 247 H 200 H Lactic Acid Calcium Phosphorus Magnesium Iron TIBC Direct Bilirubin AST ALT Alkaline Phosphatase Total Creatine Kinase CK-MB (CK-2) C-Reactive Protein Total Protein Albumin Vitamin B12 Salicylates Acetaminophen Miscellaneous Test Crossmatch 04/02/19 04/02/19 04/02/19 07:48 11:18 14:07 WBC RBC Hgb Hct MCV MCH MCHC RDW Plt Count [place] % (Auto) Lymph # Seg Neuts % (Manual) Lymphocytes % (Manual) Nucleated RBC % Seg Neutrophils # Man Lymphocytes # (Manual) Monocytes # (Manual) PT INR APTT D-Dimer POC ABG pH ABG pH POC ABG pO2 ABG pO2 ABG HCO3 ABG O2 Saturation ABG Base Excess ABG Hemoglobin VBG pH Oxyhemoglobin Sodium Potassium 3.5 L Chloride 115.7 H Carbon Dioxide 19 L BUN 29 H Creatinine 0.5 L Glucose 159 H POC Glucose 154 H 149 H Lactic Acid Calcium 7.5 L Phosphorus Magnesium Iron TIBC Direct Bilirubin AST 1418 H ALT 1134 H Alkaline Phosphatase 242 H Total Creatine Kinase CK-MB (CK-2) C-Reactive Protein Total Protein 4.2 L Albumin 2.1 L Vitamin B12 Salicylates Acetaminophen Miscellaneous Test Crossmatch 04/02/19 04/02/19 04/02/19 18:09 19:46 23:05 WBC RBC Hgb Hct MCV MCH MCHC RDW Plt Count [place] % (Auto) Lymph # Seg Neuts % (Manual) Lymphocytes % (Manual) Nucleated RBC % Seg Neutrophils # Man Lymphocytes # (Manual) Monocytes # (Manual) PT INR APTT D-Dimer POC ABG pH ABG pH POC ABG pO2 ABG pO2 ABG HCO3 ABG O2 Saturation ABG Base Excess ABG Hemoglobin VBG pH Oxyhemoglobin Sodium Potassium Chloride Carbon Dioxide BUN Creatinine Glucose POC Glucose 188 H 209 H 247 H Lactic Acid Calcium Phosphorus Magnesium Iron TIBC Direct Bilirubin AST ALT Alkaline Phosphatase Total Creatine Kinase CK-MB (CK-2) C-Reactive Protein Total Protein Albumin Vitamin B12 Salicylates Acetaminophen Miscellaneous Test Crossmatch 04/03/19 04/03/19 04/03/19 02:58 03:40 03:40 WBC RBC 2.87 L Hgb 9.3 L Hct 27.0 L MCV MCH MCHC RDW 17.2 H Plt Count 65 L [place] % (Auto) 9.8 H Lymph # 1.1 L Seg Neuts % (Manual) Lymphocytes % (Manual) Nucleated RBC % Seg Neutrophils # Man Lymphocytes # (Manual) Monocytes # (Manual) PT INR APTT D-Dimer POC ABG pH ABG pH POC ABG pO2 ABG pO2 ABG HCO3 ABG O2 Saturation ABG Base Excess ABG Hemoglobin VBG pH Oxyhemoglobin Sodium 147 H Potassium 3.5 L Chloride 116.7 H Carbon Dioxide 18 L BUN Creatinine 0.4 L Glucose 150 H POC Glucose 166 H Lactic Acid Calcium 8.1 L Phosphorus 2.20 L Magnesium Iron TIBC Direct Bilirubin AST 594 H ALT 861 H Alkaline Phosphatase 299 H Total Creatine Kinase CK-MB (CK-2) C-Reactive Protein Total Protein 4.4 L Albumin 2.1 L Vitamin B12 Salicylates Acetaminophen Miscellaneous Test Crossmatch 04/03/19 04/03/19 04/03/19 05:35 07:02 08:23 WBC RBC Hgb Hct MCV MCH MCHC RDW Plt Count [place] % (Auto) Lymph # Seg Neuts % (Manual) Lymphocytes % (Manual) Nucleated RBC % Seg Neutrophils # Man Lymphocytes # (Manual) Monocytes # (Manual) PT INR APTT D-Dimer POC ABG pH ABG pH POC ABG pO2 ABG pO2 97.7 H ABG HCO3 19.3 L ABG O2 Saturation ABG Base Excess -5.0 L ABG Hemoglobin 8.0 L VBG pH Oxyhemoglobin Sodium Potassium Chloride Carbon Dioxide BUN Creatinine Glucose POC Glucose 135 H 132 H Lactic Acid Calcium Phosphorus Magnesium Iron TIBC Direct Bilirubin AST ALT Alkaline Phosphatase Total Creatine Kinase CK-MB (CK-2) C-Reactive Protein Total Protein Albumin Vitamin B12 Salicylates Acetaminophen Miscellaneous Test Crossmatch 04/03/19 04/03/19 04/03/19 11:58 15:11 17:53 WBC RBC Hgb Hct MCV MCH MCHC RDW Plt Count [place] % (Auto) Lymph # Seg Neuts % (Manual) Lymphocytes % (Manual) Nucleated RBC % Seg Neutrophils # Man Lymphocytes # (Manual) Monocytes # (Manual) PT INR APTT D-Dimer POC ABG pH ABG pH POC ABG pO2 ABG pO2 ABG HCO3 ABG O2 Saturation ABG Base Excess ABG Hemoglobin VBG pH Oxyhemoglobin Sodium Potassium Chloride Carbon Dioxide BUN Creatinine Glucose POC Glucose 179 H 213 H 223 H Lactic Acid Calcium Phosphorus Magnesium Iron TIBC Direct Bilirubin AST ALT Alkaline Phosphatase Total Creatine Kinase CK-MB (CK-2) C-Reactive Protein Total Protein Albumin Vitamin B12 Salicylates Acetaminophen Miscellaneous Test Crossmatch 04/03/19 04/04/19 04/04/19 23:06 02:36 06:41 WBC RBC Hgb Hct MCV MCH MCHC RDW Plt Count [place] % (Auto) Lymph # Seg Neuts % (Manual) Lymphocytes % (Manual) Nucleated RBC % Seg Neutrophils # Man Lymphocytes # (Manual) Monocytes # (Manual) PT INR APTT D-Dimer POC ABG pH ABG pH POC ABG pO2 ABG pO2 ABG HCO3 ABG O2 Saturation ABG Base Excess ABG Hemoglobin VBG pH Oxyhemoglobin Sodium Potassium Chloride Carbon Dioxide BUN Creatinine Glucose POC Glucose 189 H 157 H 131 H Lactic Acid Calcium Phosphorus Magnesium Iron TIBC Direct Bilirubin AST ALT Alkaline Phosphatase Total Creatine Kinase CK-MB (CK-2) C-Reactive Protein Total Protein Albumin Vitamin B12 Salicylates Acetaminophen Miscellaneous Test Crossmatch 04/04/19 04/04/19 04/04/19 11:42 15:45 18:21 WBC RBC Hgb Hct MCV MCH MCHC RDW Plt Count [place] % (Auto) Lymph # Seg Neuts % (Manual) Lymphocytes % (Manual) Nucleated RBC % Seg Neutrophils # Man Lymphocytes # (Manual) Monocytes # (Manual) PT INR APTT D-Dimer POC ABG pH ABG pH POC ABG pO2 ABG pO2 ABG HCO3 ABG O2 Saturation ABG Base Excess ABG Hemoglobin VBG pH Oxyhemoglobin Sodium Potassium Chloride Carbon Dioxide BUN Creatinine Glucose POC Glucose 233 H 236 H 255 H Lactic Acid Calcium Phosphorus Magnesium Iron TIBC Direct Bilirubin AST ALT Alkaline Phosphatase Total Creatine Kinase CK-MB (CK-2) C-Reactive Protein Total Protein Albumin Vitamin B12 Salicylates Acetaminophen Miscellaneous Test Crossmatch 04/04/19 04/05/19 04/05/19 21:21 03:06 06:05 WBC RBC 2.68 L Hgb 8.5 L Hct 26.3 L MCV 98 H MCH MCHC RDW 17.4 H Plt Count [place] % (Auto) Lymph # Seg Neuts % (Manual) Lymphocytes % (Manual) Nucleated RBC % Seg Neutrophils # Man Lymphocytes # (Manual) Monocytes # (Manual) PT INR APTT D-Dimer POC ABG pH ABG pH POC ABG pO2 ABG pO2 ABG HCO3 ABG O2 Saturation ABG Base Excess ABG Hemoglobin VBG pH Oxyhemoglobin Sodium Potassium Chloride Carbon Dioxide BUN Creatinine Glucose POC Glucose 132 H 161 H Lactic Acid Calcium Phosphorus Magnesium Iron TIBC Direct Bilirubin AST ALT Alkaline Phosphatase Total Creatine Kinase CK-MB (CK-2) C-Reactive Protein Total Protein Albumin Vitamin B12 Salicylates Acetaminophen Miscellaneous Test Crossmatch 04/05/19 04/05/19 04/05/19 06:05 06:49 10:23 WBC RBC Hgb Hct MCV MCH MCHC RDW Plt Count [place] % (Auto) Lymph # Seg Neuts % (Manual) Lymphocytes % (Manual) Nucleated RBC % Seg Neutrophils # Man Lymphocytes # (Manual) Monocytes # (Manual) PT INR APTT D-Dimer POC ABG pH ABG pH POC ABG pO2 ABG pO2 ABG HCO3 ABG O2 Saturation ABG Base Excess ABG Hemoglobin VBG pH Oxyhemoglobin Sodium Potassium Chloride 112.5 H Carbon Dioxide BUN Creatinine 0.2 L Glucose 237 H POC Glucose 283 H 296 H Lactic Acid Calcium 7.9 L Phosphorus Magnesium Iron TIBC Direct Bilirubin AST ALT Alkaline Phosphatase Total Creatine Kinase CK-MB (CK-2) C-Reactive Protein Total Protein Albumin Vitamin B12 Salicylates Acetaminophen Miscellaneous Test Crossmatch 04/05/19 04/05/19 04/05/19 14:46 18:19 20:35 WBC RBC Hgb Hct MCV MCH MCHC RDW Plt Count [place] % (Auto) Lymph # Seg Neuts % (Manual) Lymphocytes % (Manual) Nucleated RBC % Seg Neutrophils # Man Lymphocytes # (Manual) Monocytes # (Manual) PT INR APTT D-Dimer POC ABG pH ABG pH POC ABG pO2 ABG pO2 ABG HCO3 ABG O2 Saturation ABG Base Excess ABG Hemoglobin VBG pH Oxyhemoglobin Sodium Potassium Chloride Carbon Dioxide BUN Creatinine Glucose POC Glucose 225 H 259 H 236 H Lactic Acid Calcium Phosphorus Magnesium Iron TIBC Direct Bilirubin AST ALT Alkaline Phosphatase Total Creatine Kinase CK-MB (CK-2) C-Reactive Protein Total Protein Albumin Vitamin B12 Salicylates Acetaminophen Miscellaneous Test Crossmatch 04/05/19 04/06/19 04/06/19 23:11 00:06 03:14 WBC RBC Hgb Hct MCV MCH MCHC RDW Plt Count [place] % (Auto) Lymph # Seg Neuts % (Manual) Lymphocytes % (Manual) Nucleated RBC % Seg Neutrophils # Man Lymphocytes # (Manual) Monocytes # (Manual) PT INR APTT D-Dimer 4526.86 H POC ABG pH ABG pH POC ABG pO2 ABG pO2 ABG HCO3 ABG O2 Saturation ABG Base Excess ABG Hemoglobin VBG pH Oxyhemoglobin Sodium Potassium Chloride Carbon Dioxide BUN Creatinine Glucose POC Glucose 205 H 228 H Lactic Acid Calcium Phosphorus Magnesium Iron TIBC Direct Bilirubin AST ALT Alkaline Phosphatase Total Creatine Kinase CK-MB (CK-2) C-Reactive Protein Total Protein Albumin Vitamin B12 Salicylates Acetaminophen Miscellaneous Test Crossmatch 04/06/19 04/06/19 04/06/19 05:20 05:20 07:57 WBC 15.1 H RBC 2.90 L Hgb 9.1 L Hct 28.0 L MCV MCH MCHC RDW 17.3 H Plt Count [place] % (Auto) Lymph # Seg Neuts % (Manual) Lymphocytes % (Manual) Nucleated RBC % Seg Neutrophils # Man Lymphocytes # (Manual) Monocytes # (Manual) PT INR APTT D-Dimer POC ABG pH ABG pH POC ABG pO2 ABG pO2 ABG HCO3 ABG O2 Saturation ABG Base Excess ABG Hemoglobin VBG pH Oxyhemoglobin Sodium Potassium Chloride Carbon Dioxide BUN Creatinine 0.2 L Glucose 161 H POC Glucose 191 H Lactic Acid Calcium 8.0 L Phosphorus Magnesium Iron TIBC Direct Bilirubin AST ALT Alkaline Phosphatase Total Creatine Kinase CK-MB (CK-2) C-Reactive Protein Total Protein Albumin Vitamin B12 Salicylates Acetaminophen Miscellaneous Test Crossmatch 04/06/19 04/06/19 04/06/19 12:09 18:24 22:07 WBC RBC Hgb Hct MCV MCH MCHC RDW Plt Count [place] % (Auto) Lymph # Seg Neuts % (Manual) Lymphocytes % (Manual) Nucleated RBC % Seg Neutrophils # Man Lymphocytes # (Manual) Monocytes # (Manual) PT INR APTT D-Dimer POC ABG pH ABG pH POC ABG pO2 ABG pO2 ABG HCO3 ABG O2 Saturation ABG Base Excess ABG Hemoglobin VBG pH Oxyhemoglobin Sodium Potassium Chloride Carbon Dioxide BUN Creatinine Glucose POC Glucose 143 H 161 H 140 H Lactic Acid Calcium Phosphorus Magnesium Iron TIBC Direct Bilirubin AST ALT Alkaline Phosphatase Total Creatine Kinase CK-MB (CK-2) C-Reactive Protein Total Protein Albumin Vitamin B12 Salicylates Acetaminophen Miscellaneous Test Crossmatch 04/07/19 04/07/19 04/07/19 03:00 04:30 04:30 WBC 13.0 H RBC 2.65 L Hgb 8.3 L Hct 25.5 L MCV MCH MCHC RDW 17.0 H Plt Count [place] % (Auto) Lymph # Seg Neuts % (Manual) Lymphocytes % (Manual) Nucleated RBC % Seg Neutrophils # Man Lymphocytes # (Manual) Monocytes # (Manual) PT INR APTT D-Dimer POC ABG pH ABG pH POC ABG pO2 ABG pO2 ABG HCO3 ABG O2 Saturation ABG Base Excess ABG Hemoglobin VBG pH Oxyhemoglobin Sodium Potassium Chloride Carbon Dioxide BUN Creatinine 0.2 L Glucose 208 H POC Glucose 224 H Lactic Acid Calcium 7.7 L Phosphorus Magnesium Iron TIBC Direct Bilirubin AST ALT Alkaline Phosphatase Total Creatine Kinase CK-MB (CK-2) C-Reactive Protein Total Protein Albumin Vitamin B12 Salicylates Acetaminophen Miscellaneous Test Crossmatch 04/07/19 04/07/19 04/07/19 05:47 08:27 10:33 WBC RBC Hgb Hct MCV MCH MCHC RDW Plt Count [place] % (Auto) Lymph # Seg Neuts % (Manual) Lymphocytes % (Manual) Nucleated RBC % Seg Neutrophils # Man Lymphocytes # (Manual) Monocytes # (Manual) PT INR APTT D-Dimer POC ABG pH ABG pH POC ABG pO2 ABG pO2 ABG HCO3 ABG O2 Saturation ABG Base Excess ABG Hemoglobin VBG pH Oxyhemoglobin Sodium Potassium Chloride Carbon Dioxide BUN Creatinine Glucose POC Glucose 225 H 176 H 207 H Lactic Acid Calcium Phosphorus Magnesium Iron TIBC Direct Bilirubin AST ALT Alkaline Phosphatase Total Creatine Kinase CK-MB (CK-2) C-Reactive Protein Total Protein Albumin Vitamin B12 Salicylates Acetaminophen Miscellaneous Test Crossmatch 04/07/19 04/07/19 04/07/19 14:13 18:32 22:42 WBC RBC Hgb Hct MCV MCH MCHC RDW Plt Count [place] % (Auto) Lymph # Seg Neuts % (Manual) Lymphocytes % (Manual) Nucleated RBC % Seg Neutrophils # Man Lymphocytes # (Manual) Monocytes # (Manual) PT INR APTT D-Dimer POC ABG pH ABG pH POC ABG pO2 ABG pO2 ABG HCO3 ABG O2 Saturation ABG Base Excess ABG Hemoglobin VBG pH Oxyhemoglobin Sodium Potassium Chloride Carbon Dioxide BUN Creatinine Glucose POC Glucose 219 H 227 H 238 H Lactic Acid Calcium Phosphorus Magnesium Iron TIBC Direct Bilirubin AST ALT Alkaline Phosphatase Total Creatine Kinase CK-MB (CK-2) C-Reactive Protein Total Protein Albumin Vitamin B12 Salicylates Acetaminophen Miscellaneous Test Crossmatch 04/08/19 04/08/19 04/08/19 02:31 05:37 14:10 WBC RBC Hgb Hct MCV MCH MCHC RDW Plt Count [place] % (Auto) Lymph # Seg Neuts % (Manual) Lymphocytes % (Manual) Nucleated RBC % Seg Neutrophils # Man Lymphocytes # (Manual) Monocytes # (Manual) PT INR APTT D-Dimer POC ABG pH ABG pH POC ABG pO2 ABG pO2 ABG HCO3 ABG O2 Saturation ABG Base Excess ABG Hemoglobin VBG pH Oxyhemoglobin Sodium Potassium Chloride Carbon Dioxide BUN Creatinine Glucose POC Glucose 194 H 194 H 139 H Lactic Acid Calcium Phosphorus Magnesium Iron TIBC Direct Bilirubin AST ALT Alkaline Phosphatase Total Creatine Kinase CK-MB (CK-2) C-Reactive Protein Total Protein Albumin Vitamin B12 Salicylates Acetaminophen Miscellaneous Test Crossmatch 04/08/19 04/08/19 04/09/19 17:43 23:20 03:28 WBC RBC Hgb Hct MCV MCH MCHC RDW Plt Count [place] % (Auto) Lymph # Seg Neuts % (Manual) Lymphocytes % (Manual) Nucleated RBC % Seg Neutrophils # Man Lymphocytes # (Manual) Monocytes # (Manual) PT INR APTT D-Dimer POC ABG pH ABG pH POC ABG pO2 ABG pO2 ABG HCO3 ABG O2 Saturation ABG Base Excess ABG Hemoglobin VBG pH Oxyhemoglobin Sodium Potassium Chloride Carbon Dioxide BUN Creatinine Glucose POC Glucose 261 H 277 H 301 H Lactic Acid Calcium Phosphorus Magnesium Iron TIBC Direct Bilirubin AST ALT Alkaline Phosphatase Total Creatine Kinase CK-MB (CK-2) C-Reactive Protein Total Protein Albumin Vitamin B12 Salicylates Acetaminophen Miscellaneous Test Crossmatch 04/09/19 04/09/19 04/09/19 05:35 05:35 05:35 WBC RBC 2.78 L Hgb 9.0 L Hct 26.7 L MCV MCH MCHC RDW 17.0 H Plt Count [place] % (Auto) Lymph # Seg Neuts % (Manual) Lymphocytes % (Manual) Nucleated RBC % Seg Neutrophils # Man Lymphocytes # (Manual) Monocytes # (Manual) PT INR APTT D-Dimer POC ABG pH ABG pH POC ABG pO2 ABG pO2 ABG HCO3 ABG O2 Saturation ABG Base Excess ABG Hemoglobin VBG pH Oxyhemoglobin Sodium Potassium Chloride Carbon Dioxide 31 H BUN Creatinine 0.2 L Glucose 218 H POC Glucose 240 H Lactic Acid Calcium Phosphorus Magnesium Iron TIBC Direct Bilirubin AST ALT Alkaline Phosphatase Total Creatine Kinase CK-MB (CK-2) C-Reactive Protein Total Protein Albumin Vitamin B12 Salicylates Acetaminophen Miscellaneous Test Crossmatch 04/09/19 04/09/19 04/09/19 09:01 12:23 17:33 WBC RBC Hgb Hct MCV MCH MCHC RDW Plt Count [place] % (Auto) Lymph # Seg Neuts % (Manual) Lymphocytes % (Manual) Nucleated RBC % Seg Neutrophils # Man Lymphocytes # (Manual) Monocytes # (Manual) PT INR APTT D-Dimer POC ABG pH ABG pH POC ABG pO2 ABG pO2 ABG HCO3 ABG O2 Saturation ABG Base Excess ABG Hemoglobin VBG pH Oxyhemoglobin Sodium Potassium Chloride Carbon Dioxide BUN Creatinine Glucose POC Glucose 160 H 162 H 149 H Lactic Acid Calcium Phosphorus Magnesium Iron TIBC Direct Bilirubin AST ALT Alkaline Phosphatase Total Creatine Kinase CK-MB (CK-2) C-Reactive Protein Total Protein Albumin Vitamin B12 Salicylates Acetaminophen Miscellaneous Test Crossmatch 04/09/19 04/09/19 04/10/19 21:26 22:28 03:16 WBC RBC Hgb Hct MCV MCH MCHC RDW Plt Count [place] % (Auto) Lymph # Seg Neuts % (Manual) Lymphocytes % (Manual) Nucleated RBC % Seg Neutrophils # Man Lymphocytes # (Manual) Monocytes # (Manual) PT INR APTT D-Dimer POC ABG pH ABG pH POC ABG pO2 ABG pO2 ABG HCO3 ABG O2 Saturation ABG Base Excess ABG Hemoglobin VBG pH Oxyhemoglobin Sodium Potassium Chloride Carbon Dioxide BUN Creatinine Glucose POC Glucose 196 H 224 H 163 H Lactic Acid Calcium Phosphorus Magnesium Iron TIBC Direct Bilirubin AST ALT Alkaline Phosphatase Total Creatine Kinase CK-MB (CK-2) C-Reactive Protein Total Protein Albumin Vitamin B12 Salicylates Acetaminophen Miscellaneous Test Crossmatch 04/10/19 04/10/19 04/10/19 04:15 04:15 05:30 WBC RBC 2.88 L Hgb 9.2 L Hct 27.9 L MCV MCH MCHC RDW 17.0 H Plt Count 454 H [place] % (Auto) Lymph # Seg Neuts % (Manual) Lymphocytes % (Manual) Nucleated RBC % Seg Neutrophils # Man Lymphocytes # (Manual) Monocytes # (Manual) PT INR APTT D-Dimer POC ABG pH ABG pH POC ABG pO2 ABG pO2 ABG HCO3 ABG O2 Saturation ABG Base Excess ABG Hemoglobin VBG pH Oxyhemoglobin Sodium Potassium Chloride Carbon Dioxide 32 H BUN Creatinine 0.2 L Glucose 126 H POC Glucose 135 H Lactic Acid Calcium Phosphorus Magnesium Iron TIBC Direct Bilirubin AST ALT Alkaline Phosphatase Total Creatine Kinase CK-MB (CK-2) C-Reactive Protein Total Protein Albumin Vitamin B12 Salicylates Acetaminophen Miscellaneous Test Crossmatch Allied health notes reviewed: RT
--- NOTE | 2019-04-10 12:54 | Progress Note ---
Assessment and Plan Cultures: 03/29 BCx: no growth 03/29 sputum Cx: C albicans 03/30/2019 MRSA nasal: negative A/P: 28 yo F PMHx T1DM admitted after receiving intubation and CPR due to non- responsiveness likely secondary to DKA 1. Sepsis - potential liver abscess v/s ischemia v/s trauma. Leukocytosis, tachycardia. 2. Aspiration pneumonia - Procal greatly elevated. Continue antibiotics. Can treat for 7 days. Jenn in sputum culture not a pathogen of the respiratory tract. 3. Liver lesion - ? abscess v/s other etiology. Would need additional imaging. 4. DKA - numerous metabolic derangements, per primary/ICU team 5. T1DM 6. Head lice - s/p treatment x 3. 7. Acute encephalopathy: MRI showed anoxic brain injury. Guarded prognosis, now DNR. Recs: - Continue IV Ceftriaxone, continue metronidazole 500mg q8h - will need repeat imaging of her liver ([address] v/s MRI to evaluate possibility of liver ischemia v/s trauma v/s abscess) to help decide duration of therapy - overall guarded prognosis, now DNR Linda Norman MD FACP [facility] ([facility]) Subjective Date of service: 04/10/19 Principal diagnosis: Ac Hypoxemic Resp Failure; DKA; Severe sepsis with shock; ANGELICA Interval history: No fever. Remains unresponsive, on the vent. Opens eyes sometimes per RN but does not track or obey any commands. Objective - Exam Narrative Exam: Physical Exam: Constitutional: Intubated, unresponsive Head, Ears, Nose: Normocephalic, atraumatic. External ears, nose normal Eyes: Conjunctivae/corneas clear. No icterus. No ptosis. Neck: Supple, no meningeal signs. Intubated Oral: intubated Cardiovascular: S1, S2 normal. Respiratory: Good air entry, clear to auscultation bilaterally GI: Soft, non-tender; bowel sounds normal. No peritoneal signs. Musculoskeletal: No pedal edema, no cyanosis. Skin: No rash or abscess Hem/Lymphatic: No palpable cervical or supraclavicular nodes. No lymphangitis Psych: unresponsive Neurological: Intubated, unresponsive - Constitutional Vitals: Vital Signs Temp Pulse Resp BP Pulse Ox 97.9 F 115 H 31 H 127/82 92 04/10/19 12:00 04/10/19 11:57 04/10/19 11:57 04/10/19 11:57 04/10/19 11:57 Temperature -Last 24 Hours Temperature 97.9 F Temperature 97.7 F Temperature 97.7 F Temperature 98.4 F Temperature 98.8 F Temperature 97.6 F Temperature 98.3 F Temperature 98.3 F - Labs CBC & Chem 7: 04/10/19 04:15 04/10/19 04:15 Labs: Abnormal lab results 04/09/19 04/09/19 04/09/19 Range/Units 12:23 17:33 21:26 RBC (3.65-5.03) M/mm3 Hgb (10.1-14.3) gm/dl Hct (30.3-42.9) % RDW (13.2-15.2) % Plt Count (140-440) K/mm3 Carbon Dioxide (22-30) mmol/L Creatinine (0.7-1.2) mg/dL Glucose (65-100) mg/dL POC Glucose 162 H 149 H 196 H (70-105) 04/09/19 04/10/19 04/10/19 Range/Units 22:28 03:16 04:15 RBC 2.88 L (3.65-5.03) M/mm3 Hgb 9.2 L (10.1-14.3) gm/dl Hct 27.9 L (30.3-42.9) % RDW 17.0 H (13.2-15.2) % Plt Count 454 H (140-440) K/mm3 Carbon Dioxide (22-30) mmol/L Creatinine (0.7-1.2) mg/dL Glucose (65-100) mg/dL POC Glucose 224 H 163 H (70-105) 04/10/19 04/10/19 04/10/19 Range/Units 04:15 05:30 12:14 RBC (3.65-5.03) M/mm3 Hgb (10.1-14.3) gm/dl Hct (30.3-42.9) % RDW (13.2-15.2) % Plt Count (140-440) K/mm3 Carbon Dioxide 32 H (22-30) mmol/L Creatinine 0.2 L (0.7-1.2) mg/dL Glucose 126 H (65-100) mg/dL POC Glucose 135 H 109 H (70-105)
--- NOTE | 2019-04-10 15:14 | Progress Note ---
Assessment and Plan Assessment and plan: Patient is 28 year old woman with a history of diabetes was brought to the emergency room following a cardiac arrest. Her last well-known time was 10:30 in the morning, she was traveling with a friend, she was unresponsive in the back seat. EMS was called, CPR was started and continued here in the emergency room. Patient was intubated in the ER, noted hypotensive started on dobutamine, epinephrine and Levophed drip, given IV fluids, found to be in DKA with BG ~2200, several metabolic derangements - placed on insulin drip and admitted to ICU. BP improved and she was weaned off pressors. Still intubated on vent, minimal response. patient has been in coma for several days, no improvement. She has a DNR status order. Acute respiratory failure s/p intubated, on vent - on vent, cont nebs, - Pulm following Acute anoxic encephalopathy, POA - from cardiac arrest - Neurology following Cardiac arrest s/p resuscitation - likely 2/2 severe hyperglycemia - preserved EF on 2D echo DKA, severe - BG was >2200 on admission - s/p insulin drip. cont iv fluid - monitor BG q4h, on TF and on subqu insulin - adjust dose as needed Shock hypotensive vs sepsis - Now off pressors. Was on vasopressin, Levophed, Phenylephrine Sepsis with possible aspiration PNA - evident on CXR on admission with left sided infiltrates - cont abx per ID -Now on Ceftriaxone, Flagyl Fever due to Sepsis Head lice Permethin given isolation Acute renal failure, likely vasomotor nephropathy - resolved - cont iv fluid, monitor BMP Anemia, acute on chronic - no sign of blood loss s/p 2 Units PRBC transfused Hyperkalemia, resolved with fluid and insulin Hypernatremia Resolved hypokalemia, resolved Shock liver with elevated LFT and Coagulopathy - due to cardiac arrest and hypotension - cont to monitor Liver lesion ? abscess ID Physician following On Ceftriaxone, Flagyl Hypermagnesemia Hyperphosphatemia - cont to monitor, improved DVT Prophylaxis with Lovenox Poor prognosis discussed with mother at bedside. DNR status Mother has decided on DNR status The high probability of a clinically significant, sudden or life threatening deterioration of the [multiple] system(s) required my full and direct attention, intervention and personal management. The aggregate critical care time was [33] minutes. This time is in addition to time spent performing reported procedures but includes the following: [x] Data Review and interpretation [x] Patient assessment and monitoring of vital signs [x] Documentation [x] Medication orders and management History Interval history: remains unresponsive, on the vent Still intubated No Fever Hospitalist Physical - Physical exam Narrative exam: Gen: Not in acute distress, intubated, on vent HEENT: facial edema, atraumatic Neck: supple, no JVD Heart: S1 and S2 reg, no murmurs, rubs or gallop Lungs: Clear to auscultation, no rhonchi, no wheeze Abd: soft, non tender, non distended, normal BS, Ext: anasarca, leg edema, no cyanosis Neuro: Minimal responsive, does not follow commands, - Constitutional Vitals: Temp Pulse Resp BP Pulse Ox 97.9 F 120 H 28 H 134/97 98 04/10/19 12:00 04/10/19 13:00 04/10/19 13:00 04/10/19 13:00 04/10/19 12:00 General appearance: Present: other (intubated) Results - Labs CBC & Chem 7: 04/10/19 04:15 04/10/19 04:15 Labs: Laboratory Last Values WBC 7.8 K/mm3 (4.5-11.0) 04/10/19 04:15 RBC 2.88 M/mm3 (3.65-5.03) L 04/10/19 04:15 Hgb 9.2 gm/dl (10.1-14.3) L 04/10/19 04:15 Hct 27.9 % (30.3-42.9) L 04/10/19 04:15 MCV 97 fl (79-97) 04/10/19 04:15 MCH 32 pg (28-32) 04/10/19 04:15 MCHC 33 % (30-34) 04/10/19 04:15 RDW 17.0 % (13.2-15.2) H 04/10/19 04:15 Plt Count 454 K/mm3 (140-440) H 04/10/19 04:15 Lymph % (Auto) 16.9 % (13.4-35.0) 04/03/19 03:40 [place] % (Auto) 9.8 % (0.0-7.3) H 04/03/19 03:40 Eos % (Auto) 3.2 % (0.0-4.3) 04/03/19 03:40 Baso % (Auto) 0.4 % (0.0-1.8) 04/03/19 03:40 Lymph # 1.1 K/mm3 (1.2-5.4) L 04/03/19 03:40 [place] # 0.6 K/mm3 (0.0-0.8) 04/03/19 03:40 Eos # 0.2 K/mm3 (0.0-0.4) 04/03/19 03:40 Baso # 0.0 K/mm3 (0.0-0.1) 04/03/19 03:40 Add Manual Diff Complete 04/01/19 05:01 Total Counted 100 04/01/19 05:01 Seg Neutrophils % 69.7 % (40.0-70.0) 04/03/19 03:40 Seg Neuts % (Manual) 71.0 % (40.0-70.0) H 04/01/19 05:01 0 % 04/01/19 05:01 20.0 % (13.4-35.0) 04/01/19 05:01 Reactive Lymphs % (Man) 0 % 04/01/19 05:01 7.0 % (0.0-7.3) 04/01/19 05:01 2.0 % (0.0-4.3) 04/01/19 05:01 0 % (0.0-1.8) 04/01/19 05:01 0 % 04/01/19 05:01 0 % 04/01/19 05:01 0 % 04/01/19 05:01 0 % 04/01/19 05:01 Nucleated RBC % Not Reportable 04/01/19 05:01 Seg Neutrophils # 4.4 K/mm3 (1.8-7.7) 04/03/19 03:40 Seg Neutrophils # Man 4.8 K/mm3 (1.8-7.7) 04/01/19 05:01 Band Neutrophils # 0.0 K/mm3 04/01/19 05:01 1.4 K/mm3 (1.2-5.4) 04/01/19 05:01 Abs React Lymphs (Man) 0.0 K/mm3 04/01/19 05:01 0.5 K/mm3 (0.0-0.8) 04/01/19 05:01 0.1 K/mm3 (0.0-0.4) 04/01/19 05:01 0.0 K/mm3 (0.0-0.1) 04/01/19 05:01 0.0 K/mm3 04/01/19 05:01 0.0 K/mm3 04/01/19 05:01 0.0 K/mm3 04/01/19 05:01 Blast Cells # 0.0 K/mm3 04/01/19 05:01 WBC Morphology Not Reportable 04/01/19 05:01 Hypersegmented Neuts Not Reportable 04/01/19 05:01 Hyposegmented Neuts Not Reportable 04/01/19 05:01 Hypogranular Neuts Not Reportable 04/01/19 05:01 Not Reportable 04/01/19 05:01 Not Reportable 04/01/19 05:01 Not Reportable 04/01/19 05:01 Not Reportable 04/01/19 05:01 Not Reportable 04/01/19 05:01 Not Reportable 04/01/19 05:01 Not Reportable 04/01/19 05:01 Not Reportable 04/01/19 05:01 Plt Clumps, EDTA Not Reportable 04/01/19 05:01 Not Reportable 04/01/19 05:01 Not Reportable 04/01/19 05:01 Not Reportable 04/01/19 05:01 Plt Morphology Comment Not Reportable 04/01/19 05:01 RBC Morphology Normal 04/01/19 05:01 Dimorphic RBCs Not Reportable 04/01/19 05:01 Not Reportable 04/01/19 05:01 Not Reportable 04/01/19 05:01 Not Reportable 04/01/19 05:01 Not Reportable 04/01/19 05:01 Not Reportable 04/01/19 05:01 Not Reportable 04/01/19 05:01 Not Reportable 04/01/19 05:01 Not Reportable 04/01/19 05:01 Not Reportable 04/01/19 05:01 Not Reportable 04/01/19 05:01 Not Reportable 04/01/19 05:01 Not Reportable 04/01/19 05:01 Not Reportable 04/01/19 05:01 Not Reportable 04/01/19 05:01 Not Reportable 04/01/19 05:01 Not Reportable 04/01/19 05:01 Not Reportable 04/01/19 05:01 Not Reportable 04/01/19 05:01 Not Reportable 04/01/19 05:01 Acanthocytes (Spur) Not Reportable 04/01/19 05:01 Rouleaux Not Reportable 04/01/19 05:01 Not Reportable 04/01/19 05:01 Not Reportable 04/01/19 05:01 Not Reportable 04/01/19 05:01 Not Reportable 04/01/19 05:01 Hem Pathologist Commnt No 04/01/19 05:01 PT 13.9 Sec. (12.2-14.9) 04/01/19 17:14 INR 1.10 (0.87-1.13) 04/01/19 17:14 APTT 74.5 Sec. (24.2-36.6) H* 03/29/19 19:20 313 mg/dl (211-480) 04/01/19 17:14 4526.86 ng/mlDDU (0-234) H 04/06/19 00:06 Heparin Anti-Xa, Unfract Negative (Negative) 03/31/19 15:00 POC ABG pH 7.374 (7.35-7.45) 04/04/19 03:46 ABG pH 7.396 pH Units (7.350-7.450) 04/03/19 05:35 POC ABG pCO2 36.2 (35-45) 04/04/19 03:46 ABG pCO2 32.2 mm Hg 04/03/19 05:35 POC ABG pO2 96 (80-105) 04/04/19 03:46 ABG pO2 97.7 mm Hg (80.0-90.0) H 04/03/19 05:35 POC ABG HCO3 21.2 (22-26 mml/L) 04/04/19 03:46 ABG HCO3 19.3 mmol/L (20.0-26.0) L 04/03/19 05:35 POC ABG Total CO2 22 (23-27mmol/L) 04/04/19 03:46 POC ABG O2 Sat 97 04/04/19 03:46 ABG O2 Saturation 97.6 % (95.0-99.0) 04/03/19 05:35 ABG O2 Content 10.9 (0.0-44) 04/03/19 05:35 POC ABG Base Excess -4 ((-2) - (+3)mmol/L) 04/04/19 03:46 ABG Base Excess -5.0 mmol/L (-2.0-3.0) L 04/03/19 05:35 ABG Hemoglobin 8.0 gm/dl (12.0-16.0) L 04/03/19 05:35 ABG Carboxyhemoglobin 2.1 % (0.0-5.0) 04/03/19 05:35 ABG Methemoglobin 0.5 % (0.0-1.5) 04/03/19 05:35 VBG pH 6.800 (7.320-7.420) L* 03/29/19 19:47 95.1 % (95.0-99.0) 04/03/19 05:35 25 % 04/04/19 03:46 Sodium 144 mmol/L (137-145) 04/10/19 04:15 Potassium 3.8 mmol/L (3.6-5.0) 04/10/19 04:15 Chloride 104.0 mmol/L (98-107) 04/10/19 04:15 Carbon Dioxide 32 mmol/L (22-30) H 04/10/19 04:15 12 mmol/L 04/10/19 04:15 BUN 9 mg/dL (7-17) 04/10/19 04:15 0.2 mg/dL (0.7-1.2) L 04/10/19 04:15 Estimated GFR > 60 ml/min 04/10/19 04:15 45 % 04/10/19 04:15 Glucose 126 mg/dL (65-100) H 04/10/19 04:15 POC Glucose 109 (70-105) H 04/10/19 12:14 Lactic Acid 3.30 mmol/L (0.7-2.0) H* 03/31/19 07:50 Calcium 8.4 mg/dL (8.4-10.2) 04/10/19 04:15 Phosphorus 4.10 mg/dL (2.5-4.5) 04/09/19 16:25 Magnesium 1.80 mg/dL (1.7-2.3) 04/09/19 16:25 Iron 26 ug/dL (37-170) L 03/31/19 08:20 TIBC 193 mcg/dL (250-450) L 03/31/19 08:20 0.60 mg/dL (0.1-1.2) 04/03/19 03:40 0.2 mg/dL (0-0.2) 04/02/19 07:48 0.5 mg/dL 04/02/19 07:48 AST 594 units/L (5-40) H 04/03/19 03:40 ALT 861 units/L (7-56) H 04/03/19 03:40 299 units/L (35-129) H 04/03/19 03:40 2465 units/L (30-135) H 03/30/19 05:26 CK-MB (CK-2) 52.7 ng/mL (0.0-4.0) H 03/30/19 05:26 CK-MB (CK-2) Rel Index 2.1 (0-4) 03/30/19 05:26 < 0.010 ng/mL (0.00-0.029) 04/06/19 05:20 2.40 mg/dL (0.00-1.30) H 03/30/19 12:57 4.4 g/dL (6.3-8.2) L 04/03/19 03:40 2.1 g/dL (3.9-5) L 04/03/19 03:40 0.9 % 04/03/19 03:40 See scanned result 03/31/19 15:00 Vitamin B12 > 2000 pg/mL (211-911) H 03/31/19 08:20 > 20 ng/mL (7.3-26.0) 03/31/19 08:20 HCG, Qual Negative (Negative) 03/29/19 19:20 Yellow (Yellow) 03/29/19 23:10 Slightly-cloudy (Clear) 03/29/19 23:10 6.0 (5.0-7.0) 03/29/19 23:10 Ur Specific [place] 1.021 (1.003-1.030) 03/29/19 23:10 100 mg/dl mg/dL (Negative) 03/29/19 23:10 >=500 mg/dL (Negative) 03/29/19 23:10 20 mg/dL (Negative) 03/29/19 23:10 Lg (Negative) 03/29/19 23:10 Neg (Negative) 03/29/19 23:10 Neg (Negative) 03/29/19 23:10 < 2.0 mg/dL (<2.0) 03/29/19 23:10 Ur Leukocyte Esterase Neg (Negative) 03/29/19 23:10 1.0 /HPF (0.0-6.0) 03/29/19 23:10 1.0 /HPF (0.0-6.0) 03/29/19 23:10 Few /HPF 03/29/19 23:10 Salicylates 0.8 mg/dL (2.8-20.0) L 03/30/19 Unknown Presumptive negative 03/29/19 23:10 Presumptive negative 03/29/19 23:10 Acetaminophen < 5.0 ug/mL (10.0-30.0) L 03/30/19 Unknown Ur Barbiturates Screen Presumptive negative 03/29/19 23:10 Ur Phencyclidine Scrn Presumptive negative 03/29/19 23:10 Ur Amphetamines Screen Presumptive negative 03/29/19 23:10 U Benzodiazepines Scrn Presumptive negative 03/29/19 23:10 Presumptive negative 03/29/19 23:10 U Marijuana (THC) Screen Presumptive negative 03/29/19 23:10 Disclamer 03/29/19 23:10 Heparin-induced Plt Ab Negative (Negative) 03/31/19 15:00 UF Heparin High Dose 0 % Release 03/31/19 15:00 FABIAN UFH Low Dose 0.1 0 % Release 03/31/19 15:00 FABIAN UFH Low Dose 0.5 0 % Release 03/31/19 15:00 Hepatitis A IgM Ab Non-reactive (NonReactive) 03/30/19 Unknown Hep Bs Antigen Non-reactive (Negative) 03/30/19 Unknown Hep B Core IgM Ab Non-reactive (NonReactive) 03/30/19 Unknown Non-reactive (NonReactive) 03/30/19 Unknown Flexitest 1 H 03/30/19 14:00 Blood Type O POSITIVE 03/30/19 03:30 Antibody Screen Negative 03/30/19 03:30 Crossmatch See Detail 03/30/19 03:30 Active Medications - Current Medications Current Medications: Generic Name Dose Route Start Last Admin Trade Name Freq PRN Reason Stop Dose Admin Acetaminophen 650 mg 03/29/19 23:34 04/01/19 23:38 Tylenol PO 650 mg Q4H PRN Administration Pain MILD(1-3)/Fever >100.5/WARE Lipase/Protease/Amylase 1 each 04/02/19 11:[address] 10,500 Unit FEEDTUBE PRN PRN For Clogged Feeding Tube Dextrose 0 ml 03/29/19 20:33 03/31/19 02:15 D50w (25gm) Syringe IV 10 ml PRN PRN Administration Hypoglycemia Enoxaparin Sodium 40 mg 04/05/19 22:00 04/09/19 21:19 Lovenox SUB-Q 40 mg QDAY@2200 ZAMZAM Administration Famotidine 20 mg 04/02/19 10:00 04/10/19 09:50 Pepcid PO 20 mg BID ZAMZAM Administration Fentanyl 50 mcg 04/05/19 11:00 04/09/19 14:49 Sublimaze IV 50 mcg Q2H PRN Administration Pain , Severe (7-10)/AGITATION Hydrophilic Ointment 1 applic 03/30/19 11:24 Vaseline Lip Therapy TP Q2HR PRN Dry Lips Norepinephrine 4 mg in 250 mls @ 7.5 mls/hr 03/29/19 21:00 04/01/19 19:00 Levophed Drip 4 Mg/Ns 250 Ml IV 0 mcg/min TITR ZAMZAM 0 mls/hr Titration Protocol 2 MCG/MIN Vasopressin 20 unit/ Sodium 101 mls @ 9.09 mls/hr 03/29/19 23:45 04/02/19 07:45 Chloride IV 0 units/min TITR ZAMZAM 0 mls/hr Titration Protocol 0.03 UNITS/MIN Phenylephrine HCl 100 mg/ 100 mls @ 3 mls/hr 03/30/19 01:15 03/30/19 15:15 Sodium Chloride IV 0 mcg/min TITR ZAMZAM 0 mls/hr Titration Protocol 50 MCG/MIN Metronidazole 500 mg in 100 mls @ 100 mls/hr 04/07/19 14:00 04/10/19 13:41 Flagyl 500 Mg/100 Ml IV 100 mls/hr Q8HR ZAMZAM Administration Ceftriaxone Sodium 1 gm in 50 mls @ 100 mls/hr 04/09/19 13:00 04/10/19 09:50 Rocephin/Ns 1 Gm/50 Ml IV 100 mls/hr Q24HR ZAMZAM Administration Protocol Insulin Glargine 20 units 04/09/19 22:00 04/09/19 21:24 Lantus SUB-Q 20 units QHS ZAMZAM Administration Insulin Human Regular 0 units 04/09/19 12:00 04/10/19 13:31 Humulin R SUB-Q Not Given Q6HR [facility] Protocol Levetiracetam 500 mg 04/03/19 10:00 04/10/19 09:50 Keppra PO 500 mg BID ZAMZAM Administration Multi-Ingred Cream/Lotion/Oil/Oint 1 applic 03/30/19 11:24 04/06/19 11:39 Artificial Tears Ophth Oint OU 1 applic Q4HR PRN Administration Dry Eye(s) Ondansetron HCl 4 mg 03/29/19 23:34 Zofran IV Q8H PRN Nausea And Vomiting Simple Syrup 15 ml 04/02/19 11:44 Simple Syrup FEEDTUBE PRN PRN Hypoglycemia Simple Syrup 30 ml 04/02/19 11:44 Simple Syrup FEEDTUBE PRN PRN Hypoglycemia Sodium Bicarbonate 325 mg 04/02/19 11:44 Sodium Bicarbonate FEEDTUBE PRN PRN For Clogged Feeding Tube Sodium Chloride 10 ml 03/30/19 10:00 04/10/19 09:50 Sodium Chloride Flush Syringe 10 Ml IV 10 ml BID ZAMZAM Administration Sodium Chloride 10 ml 03/29/19 23:34 Sodium Chloride Flush Syringe 10 Ml IV PRN PRN LINE FLUSH Nutrition/Malnutrition Assess - Dietary Evaluation Nutrition/Malnutrition Findings: Nutrition Notes Start: 03/30/19 13:14 Freq: Status: Active Protocol: Document 04/04/19 10:13 LM (Rec: 04/04/19 10:17 LM [id number]) Nutrition Notes Initial or Follow up Reassessment Current Diagnosis Diabetes,Sepsis,Respiratory Failure Other Pertinent Diagnosis s/p cardiac arrest, DKA, ARF, Shock liver Current Diet NPO Labs/Tests POC glu 131 Pertinent Medications Reviewed Height 5 ft Weight 52.2 kg Adams Body Weight (kg) 45.45 BMI 22.4 Weight change and time frame Wt change possibly due to edema in both arms. Subjective/Other Information Glucerna running at 50 ml/hr. Pt on vent and tolerating TF. Burn Absent Trauma Absent #1 Nutrition Diagnosis Inadequate oral intake Diagnosis Progress(for reassessment Continues documentation) Is patient on ventilator? Yes Is Patient Ambulatory and/or Out of Bed No REE-([place]-confined to bed) 1392.552 [facility]culation [facility] Additional Notes Pro needs 1.2-2g/k-104g/ day Fluid needs 1ml/kcal Nutrition Intervention Change Diet Order: Continue TF Nutrition Support: Glucerna 1.2 at 50ml/hr with 80ml water flush q4h. Kcal 1,440 Protein (gm) 72 Fluid (mL) 966 Goal #1 Meet at least 75% of energy and protein needs Follow-Up By: 04/11/19 Additional Comments F/U for TF tolerance/rate
[2019-04-10] MEDS: ENOXAPARIN SUB-Q SCH (22:08)
[2019-04-10] MEDS: LANTUS SUB-Q SCH (22:09)
[2019-04-11] MEDS: HumuLIN R SUB-Q SCH ×5 (00:51→18:16)
[2019-04-11] MEDS: FLAGYL 500 MG/100 ML 500 MG/100 ML BAG IV SCH ×3 (07:02→21:36)
--- NOTE | 2019-04-11 07:47 | Progress Note ---
Assessment and Plan Assessment and plan: Patient is 29 year old woman with a history of diabetes was brought to the emergency room following a cardiac arrest. Her last well-known time was 10:30 in the morning, she was traveling with a friend, she was unresponsive in the back seat. EMS was called, CPR was started and continued here in the emergency room. Patient was intubated in the ER, noted hypotensive started on dobutamine, epinephrine and Levophed drip, given IV fluids, found to be in DKA with BG ~2200, several metabolic derangements - placed on insulin drip and admitted to ICU. BP improved and she was weaned off pressors. Still intubated on vent, minimal response. patient has been in coma for several days, no improvement. She has a DNR status order. Acute respiratory failure s/p intubated, on vent - on vent, cont nebs, - Pulm following surgery consulted for trach and peg Acute anoxic encephalopathy, POA - from cardiac arrest - Neurology following Cardiac arrest s/p resuscitation - likely 2/2 severe hyperglycemia - preserved EF on 2D echo DKA, severe - BG was >2200 on admission - s/p insulin drip. cont iv fluid - monitor BG q4h, on TF and on subqu insulin - adjust dose as needed Shock hypotensive vs sepsis - Now off pressors. Was on vasopressin, Levophed, Phenylephrine Sepsis with possible aspiration PNA - evident on CXR on admission with left sided infiltrates - cont abx per ID -Now on Ceftriaxone, Flagyl Fever due to Sepsis Head lice Permethin given isolation Acute renal failure, likely vasomotor nephropathy - resolved - cont iv fluid, monitor BMP Anemia, acute on chronic - no sign of blood loss s/p 2 Units PRBC transfused Hyperkalemia, resolved with fluid and insulin Hypernatremia Resolved hypokalemia, resolved Shock liver with elevated LFT and Coagulopathy - due to cardiac arrest and hypotension - cont to monitor Liver lesion ? abscess ID Physician following On Ceftriaxone, Flagyl pER ID ;d/w Dr. Bravo regarding this patient's liver imaging findings and optimal imaging choice. Ideally, a multiphase MRI would be helpful, however patient would require a breath hold which would be difficult considering she is on the vent, next best option would be a [address] Overall, the appearance is atypical for an abscess - if CT negative for liver abscess, will d/c abX Hypermagnesemia Hyperphosphatemia - cont to monitor, improved DVT Prophylaxis with Lovenox Poor prognosis discussed with mother at bedside. DNR status Mother has decided on DNR status The high probability of a clinically significant, sudden or life threatening deterioration of the [multiple] system(s) required my full and direct attention, intervention and personal management. The aggregate critical care time was [35] minutes. This time is in addition to time spent performing reported procedures but includes the following: [x] Data Review and interpretation [x] Patient assessment and monitoring of vital signs [x] Documentation [x] Medication orders and management History Interval history: remains unresponsive, on the vent Still intubated No Fever Hospitalist Physical - Physical exam Narrative exam: Gen: Not in acute distress, intubated, on vent HEENT: facial edema, atraumatic Neck: supple, no JVD Heart: S1 and S2 reg, no murmurs, rubs or gallop Lungs: Clear to auscultation, no rhonchi, no wheeze Abd: soft, non tender, non distended, normal BS, Ext: anasarca, leg edema, no cyanosis Neuro: Minimal responsive, does not follow commands, - Constitutional Vitals: Temp Pulse Resp BP Pulse Ox 98.8 F 104 H 18 120/83 99 04/11/19 03:42 04/11/19 07:12 04/11/19 06:00 04/11/19 07:12 04/11/19 07:12 General appearance: Present: other (intubated) Results - Labs CBC & Chem 7: 04/10/19 04:15 04/10/19 04:15 Labs: Laboratory Last Values WBC 7.8 K/mm3 (4.5-11.0) 04/10/19 04:15 RBC 2.88 M/mm3 (3.65-5.03) L 04/10/19 04:15 Hgb 9.2 gm/dl (10.1-14.3) L 04/10/19 04:15 Hct 27.9 % (30.3-42.9) L 04/10/19 04:15 MCV 97 fl (79-97) 04/10/19 04:15 MCH 32 pg (28-32) 04/10/19 04:15 MCHC 33 % (30-34) 04/10/19 04:15 RDW 17.0 % (13.2-15.2) H 04/10/19 04:15 Plt Count 454 K/mm3 (140-440) H 04/10/19 04:15 Lymph % (Auto) 16.9 % (13.4-35.0) 04/03/19 03:40 [place] % (Auto) 9.8 % (0.0-7.3) H 04/03/19 03:40 Eos % (Auto) 3.2 % (0.0-4.3) 04/03/19 03:40 Baso % (Auto) 0.4 % (0.0-1.8) 04/03/19 03:40 Lymph # 1.1 K/mm3 (1.2-5.4) L 04/03/19 03:40 [place] # 0.6 K/mm3 (0.0-0.8) 04/03/19 03:40 Eos # 0.2 K/mm3 (0.0-0.4) 04/03/19 03:40 Baso # 0.0 K/mm3 (0.0-0.1) 04/03/19 03:40 Add Manual Diff Complete 04/01/19 05:01 Total Counted 100 04/01/19 05:01 Seg Neutrophils % 69.7 % (40.0-70.0) 04/03/19 03:40 Seg Neuts % (Manual) 71.0 % (40.0-70.0) H 04/01/19 05:01 0 % 04/01/19 05:01 20.0 % (13.4-35.0) 04/01/19 05:01 Reactive Lymphs % (Man) 0 % 04/01/19 05:01 7.0 % (0.0-7.3) 04/01/19 05:01 2.0 % (0.0-4.3) 04/01/19 05:01 0 % (0.0-1.8) 04/01/19 05:01 0 % 04/01/19 05:01 0 % 04/01/19 05:01 0 % 04/01/19 05:01 0 % 04/01/19 05:01 Nucleated RBC % Not Reportable 04/01/19 05:01 Seg Neutrophils # 4.4 K/mm3 (1.8-7.7) 04/03/19 03:40 Seg Neutrophils # Man 4.8 K/mm3 (1.8-7.7) 04/01/19 05:01 Band Neutrophils # 0.0 K/mm3 04/01/19 05:01 1.4 K/mm3 (1.2-5.4) 04/01/19 05:01 Abs React Lymphs (Man) 0.0 K/mm3 04/01/19 05:01 0.5 K/mm3 (0.0-0.8) 04/01/19 05:01 0.1 K/mm3 (0.0-0.4) 04/01/19 05:01 0.0 K/mm3 (0.0-0.1) 04/01/19 05:01 0.0 K/mm3 04/01/19 05:01 0.0 K/mm3 04/01/19 05:01 0.0 K/mm3 04/01/19 05:01 Blast Cells # 0.0 K/mm3 04/01/19 05:01 WBC Morphology Not Reportable 04/01/19 05:01 Hypersegmented Neuts Not Reportable 04/01/19 05:01 Hyposegmented Neuts Not Reportable 04/01/19 05:01 Hypogranular Neuts Not Reportable 04/01/19 05:01 Not Reportable 04/01/19 05:01 Not Reportable 04/01/19 05:01 Not Reportable 04/01/19 05:01 Not Reportable 04/01/19 05:01 Not Reportable 04/01/19 05:01 Not Reportable 04/01/19 05:01 Not Reportable 04/01/19 05:01 Not Reportable 04/01/19 05:01 Plt Clumps, EDTA Not Reportable 04/01/19 05:01 Not Reportable 04/01/19 05:01 Not Reportable 04/01/19 05:01 Not Reportable 04/01/19 05:01 Plt Morphology Comment Not Reportable 04/01/19 05:01 RBC Morphology Normal 04/01/19 05:01 Dimorphic RBCs Not Reportable 04/01/19 05:01 Not Reportable 04/01/19 05:01 Not Reportable 04/01/19 05:01 Not Reportable 04/01/19 05:01 Not Reportable 04/01/19 05:01 Not Reportable 04/01/19 05:01 Not Reportable 04/01/19 05:01 Not Reportable 04/01/19 05:01 Not Reportable 04/01/19 05:01 Not Reportable 04/01/19 05:01 Not Reportable 04/01/19 05:01 Not Reportable 04/01/19 05:01 Not Reportable 04/01/19 05:01 Not Reportable 04/01/19 05:01 Not Reportable 04/01/19 05:01 Not Reportable 04/01/19 05:01 Not Reportable 04/01/19 05:01 Not Reportable 04/01/19 05:01 Not Reportable 04/01/19 05:01 Not Reportable 04/01/19 05:01 Acanthocytes (Spur) Not Reportable 04/01/19 05:01 Rouleaux Not Reportable 04/01/19 05:01 Not Reportable 04/01/19 05:01 Not Reportable 04/01/19 05:01 Not Reportable 04/01/19 05:01 Not Reportable 04/01/19 05:01 Hem Pathologist Commnt No 04/01/19 05:01 PT 13.9 Sec. (12.2-14.9) 04/01/19 17:14 INR 1.10 (0.87-1.13) 04/01/19 17:14 APTT 74.5 Sec. (24.2-36.6) H* 03/29/19 19:20 313 mg/dl (211-480) 04/01/19 17:14 4526.86 ng/mlDDU (0-234) H 04/06/19 00:06 Heparin Anti-Xa, Unfract Negative (Negative) 03/31/19 15:00 POC ABG pH 7.374 (7.35-7.45) 04/04/19 03:46 ABG pH 7.396 pH Units (7.350-7.450) 04/03/19 05:35 POC ABG pCO2 36.2 (35-45) 04/04/19 03:46 ABG pCO2 32.2 mm Hg 04/03/19 05:35 POC ABG pO2 96 (80-105) 04/04/19 03:46 ABG pO2 97.7 mm Hg (80.0-90.0) H 04/03/19 05:35 POC ABG HCO3 21.2 (22-26 mml/L) 04/04/19 03:46 ABG HCO3 19.3 mmol/L (20.0-26.0) L 04/03/19 05:35 POC ABG Total CO2 22 (23-27mmol/L) 04/04/19 03:46 POC ABG O2 Sat 97 04/04/19 03:46 ABG O2 Saturation 97.6 % (95.0-99.0) 04/03/19 05:35 ABG O2 Content 10.9 (0.0-44) 04/03/19 05:35 POC ABG Base Excess -4 ((-2) - (+3)mmol/L) 04/04/19 03:46 ABG Base Excess -5.0 mmol/L (-2.0-3.0) L 04/03/19 05:35 ABG Hemoglobin 8.0 gm/dl (12.0-16.0) L 04/03/19 05:35 ABG Carboxyhemoglobin 2.1 % (0.0-5.0) 04/03/19 05:35 ABG Methemoglobin 0.5 % (0.0-1.5) 04/03/19 05:35 VBG pH 6.800 (7.320-7.420) L* 03/29/19 19:47 95.1 % (95.0-99.0) 04/03/19 05:35 25 % 04/04/19 03:46 Sodium 144 mmol/L (137-145) 04/10/19 04:15 Potassium 3.8 mmol/L (3.6-5.0) 04/10/19 04:15 Chloride 104.0 mmol/L (98-107) 04/10/19 04:15 Carbon Dioxide 32 mmol/L (22-30) H 04/10/19 04:15 12 mmol/L 04/10/19 04:15 BUN 9 mg/dL (7-17) 04/10/19 04:15 0.2 mg/dL (0.7-1.2) L 04/10/19 04:15 Estimated GFR > 60 ml/min 04/10/19 04:15 45 % 04/10/19 04:15 Glucose 126 mg/dL (65-100) H 04/10/19 04:15 POC Glucose 109 (70-105) H 04/11/19 05:27 Lactic Acid 3.30 mmol/L (0.7-2.0) H* 03/31/19 07:50 Calcium 8.4 mg/dL (8.4-10.2) 04/10/19 04:15 Phosphorus 4.10 mg/dL (2.5-4.5) 04/09/19 16:25 Magnesium 1.80 mg/dL (1.7-2.3) 04/09/19 16:25 Iron 26 ug/dL (37-170) L 03/31/19 08:20 TIBC 193 mcg/dL (250-450) L 03/31/19 08:20 0.60 mg/dL (0.1-1.2) 04/03/19 03:40 0.2 mg/dL (0-0.2) 04/02/19 07:48 0.5 mg/dL 04/02/19 07:48 AST 594 units/L (5-40) H 04/03/19 03:40 ALT 861 units/L (7-56) H 04/03/19 03:40 299 units/L (35-129) H 04/03/19 03:40 2465 units/L (30-135) H 03/30/19 05:26 CK-MB (CK-2) 52.7 ng/mL (0.0-4.0) H 03/30/19 05:26 CK-MB (CK-2) Rel Index 2.1 (0-4) 03/30/19 05:26 < 0.010 ng/mL (0.00-0.029) 04/06/19 05:20 2.40 mg/dL (0.00-1.30) H 03/30/19 12:57 4.4 g/dL (6.3-8.2) L 04/03/19 03:40 2.1 g/dL (3.9-5) L 04/03/19 03:40 0.9 % 04/03/19 03:40 See scanned result 03/31/19 15:00 Vitamin B12 > 2000 pg/mL (211-911) H 03/31/19 08:20 > 20 ng/mL (7.3-26.0) 03/31/19 08:20 HCG, Qual Negative (Negative) 03/29/19 19:20 Yellow (Yellow) 03/29/19 23:10 Slightly-cloudy (Clear) 03/29/19 23:10 6.0 (5.0-7.0) 03/29/19 23:10 Ur Specific [place] 1.021 (1.003-1.030) 03/29/19 23:10 100 mg/dl mg/dL (Negative) 03/29/19 23:10 >=500 mg/dL (Negative) 03/29/19 23:10 20 mg/dL (Negative) 03/29/19 23:10 Lg (Negative) 03/29/19 23:10 Neg (Negative) 03/29/19 23:10 Neg (Negative) 03/29/19 23:10 < 2.0 mg/dL (<2.0) 03/29/19 23:10 Ur Leukocyte Esterase Neg (Negative) 03/29/19 23:10 1.0 /HPF (0.0-6.0) 03/29/19 23:10 1.0 /HPF (0.0-6.0) 03/29/19 23:10 Few /HPF 03/29/19 23:10 Salicylates 0.8 mg/dL (2.8-20.0) L 03/30/19 Unknown Presumptive negative 03/29/19 23:10 Presumptive negative 03/29/19 23:10 Acetaminophen < 5.0 ug/mL (10.0-30.0) L 03/30/19 Unknown Ur Barbiturates Screen Presumptive negative 03/29/19 23:10 Ur Phencyclidine Scrn Presumptive negative 03/29/19 23:10 Ur Amphetamines Screen Presumptive negative 03/29/19 23:10 U Benzodiazepines Scrn Presumptive negative 03/29/19 23:10 Presumptive negative 03/29/19 23:10 U Marijuana (THC) Screen Presumptive negative 03/29/19 23:10 Disclamer 03/29/19 23:10 Heparin-induced Plt Ab Negative (Negative) 03/31/19 15:00 UF Heparin High Dose 0 % Release 03/31/19 15:00 FABIAN UFH Low Dose 0.1 0 % Release 03/31/19 15:00 FABIAN UFH Low Dose 0.5 0 % Release 03/31/19 15:00 Hepatitis A IgM Ab Non-reactive (NonReactive) 03/30/19 Unknown Hep Bs Antigen Non-reactive (Negative) 03/30/19 Unknown Hep B Core IgM Ab Non-reactive (NonReactive) 03/30/19 Unknown Non-reactive (NonReactive) 03/30/19 Unknown Flexitest 1 H 03/30/19 14:00 Blood Type O POSITIVE 03/30/19 03:30 Antibody Screen Negative 03/30/19 03:30 Crossmatch See Detail 03/30/19 03:30 Active Medications - Current Medications Current Medications: Generic Name Dose Route Start Last Admin Trade Name Freq PRN Reason Stop Dose Admin Acetaminophen 650 mg 03/29/19 23:34 04/01/19 23:38 Tylenol PO 650 mg Q4H PRN Administration Pain MILD(1-3)/Fever >100.5/WARE Lipase/Protease/Amylase 1 each 04/02/19 11:[address] 10,500 Unit FEEDTUBE PRN PRN For Clogged Feeding Tube Dextrose 0 ml 03/29/19 20:33 03/31/19 02:15 D50w (25gm) Syringe IV 10 ml PRN PRN Administration Hypoglycemia Enoxaparin Sodium 40 mg 04/05/19 22:00 04/10/19 22:08 Lovenox SUB-Q 40 mg QDAY@2200 ZAMZAM Administration Famotidine 20 mg 04/02/19 10:00 04/10/19 22:08 Pepcid PO 20 mg BID ZAMZAM Administration Fentanyl 50 mcg 04/05/19 11:00 04/09/19 14:49 Sublimaze IV 50 mcg Q2H PRN Administration Pain , Severe (7-10)/AGITATION Hydrophilic Ointment 1 applic 03/30/19 11:24 Vaseline Lip Therapy TP Q2HR PRN Dry Lips Norepinephrine 4 mg in 250 mls @ 7.5 mls/hr 03/29/19 21:00 04/01/19 19:00 Levophed Drip 4 Mg/Ns 250 Ml IV 0 mcg/min TITR ZAMZAM 0 mls/hr Titration Protocol 2 MCG/MIN Vasopressin 20 unit/ Sodium 101 mls @ 9.09 mls/hr 03/29/19 23:45 04/02/19 07:45 Chloride IV 0 units/min TITR ZAMZAM 0 mls/hr Titration Protocol 0.03 UNITS/MIN Phenylephrine HCl 100 mg/ 100 mls @ 3 mls/hr 03/30/19 01:15 03/30/19 15:15 Sodium Chloride IV 0 mcg/min TITR ZAMZAM 0 mls/hr Titration Protocol 50 MCG/MIN Metronidazole 500 mg in 100 mls @ 100 mls/hr 04/07/19 14:00 04/11/19 07:02 Flagyl 500 Mg/100 Ml IV 100 mls/hr Q8HR ZAMZAM Administration Ceftriaxone Sodium 1 gm in 50 mls @ 100 mls/hr 04/09/19 13:00 04/10/19 09:50 Rocephin/Ns 1 Gm/50 Ml IV 100 mls/hr Q24HR ZAMZAM Administration Protocol Insulin Glargine 20 units 04/09/19 22:00 04/10/19 22:09 Lantus SUB-Q 20 units QHS ZAMZAM Administration Insulin Human Regular 0 units 04/09/19 12:00 04/11/19 05:40 Humulin R SUB-Q Not Given Q6HR [facility] Protocol Levetiracetam 500 mg 04/03/19 10:00 04/10/19 22:08 Keppra PO 500 mg BID ZAMZAM Administration Multi-Ingred Cream/Lotion/Oil/Oint 1 applic 03/30/19 11:24 04/06/19 11:39 Artificial Tears Ophth Oint OU 1 applic Q4HR PRN Administration Dry Eye(s) Ondansetron HCl 4 mg 03/29/19 23:34 Zofran IV Q8H PRN Nausea And Vomiting Simple Syrup 15 ml 04/02/19 11:44 Simple Syrup FEEDTUBE PRN PRN Hypoglycemia Simple Syrup 30 ml 04/02/19 11:44 Simple Syrup FEEDTUBE PRN PRN Hypoglycemia Sodium Bicarbonate 325 mg 04/02/19 11:44 Sodium Bicarbonate FEEDTUBE PRN PRN For Clogged Feeding Tube Sodium Chloride 10 ml 03/30/19 10:00 04/10/19 22:09 Sodium Chloride Flush Syringe 10 Ml IV 10 ml BID ZAMZAM Administration Sodium Chloride 10 ml 03/29/19 23:34 Sodium Chloride Flush Syringe 10 Ml IV PRN PRN LINE FLUSH Nutrition/Malnutrition Assess - Dietary Evaluation Nutrition/Malnutrition Findings: Nutrition Notes Start: 03/30/19 13:14 Freq: Status: Active Protocol: Document 04/04/19 10:13 LM (Rec: 04/04/19 10:17 LM [id number]) Nutrition Notes Initial or Follow up Reassessment Current Diagnosis Diabetes,Sepsis,Respiratory Failure Other Pertinent Diagnosis s/p cardiac arrest, DKA, ARF, Shock liver Current Diet NPO Labs/Tests POC glu 131 Pertinent Medications Reviewed Height 5 ft Weight 52.2 kg [place] Body Weight (kg) 45.45 BMI 22.4 Weight change and time frame Wt change possibly due to edema in both arms. Subjective/Other Information Glucerna running at 50 ml/hr. Pt on vent and tolerating TF. Burn Absent Trauma Absent #1 Nutrition Diagnosis Inadequate oral intake Diagnosis Progress(for reassessment Continues documentation) Is patient on ventilator? Yes Is Patient Ambulatory and/or Out of Bed No REE-([facility]-confined to bed) 1392.552 Calculation Used for Recommendations [facility] Additional Notes Pro needs 1.2-2g/k-104g/ day Fluid needs 1ml/kcal Nutrition Intervention Change Diet Order: Continue TF Nutrition Support: Glucerna 1.2 at 50ml/hr with 80ml water flush q4h. Kcal 1,440 Protein (gm) 72 Fluid (mL) 966 Goal #1 Meet at least 75% of energy and protein needs Follow-Up By: 04/11/19 Additional Comments F/U for TF tolerance/rate
[2019-04-11] MEDS: ROCEPHIN/NS 1 GM/50 ML 1 GM/50 ML BAG IV SCH (10:03)
[2019-04-11] MEDS: KEPPRA PO SCH ×2 (10:03→21:37)
[2019-04-11] MEDS: PEPCID PO SCH ×2 (10:04→21:37)
--- NOTE | 2019-04-11 10:43 | Progress Note ---
Assessment and Plan Acute hypoxemic respiratory failure, on MVS Acute toxic metabolic encephalopathy; MRI consistent with diffuse anoxic injury Diabetic ketoacidosis. Severe sepsis with shock. Possible aspiration pneumonia. History of polysubstance abuse. Leukocytosis. Elevated serum transaminases, possible shock liver. Hyponatremia related to her severe hyperglycemia. Anemia that is macrocytic. History of seizure disorder. Severe metabolic acidosis. Acute kidney injury, possibly on chronic - transfuse PRBC's prn to keep Hb >/= 7.0 g/dl - continue daily SBT assessments as tolerated - continue enteral nutrition with glucerna -accuchecks with glycemic control - continue bronchodilators with pulmonary hygiene per RT - VAP bundle addressed - continue to wean supplemental O2 to keep O2 sats > 90% - VTE prophylaxis-SCDs - Stress ulcer prophylaxis - continue accuchecks with glycemic control per SSI for target blood glucose 140-180 mg/dL - continue empiric antibiotics; de-escalate per ID rec's and based on clinical and microbiologic data - continue Keppra for seizures - continue mobility protocols / off loading for pressure ulcer prevention - Critical care bundles addressed - continue other care per attending / other consultants Had discussions with her mother this morning, re goals of care. She states that she is agreeable to a tracheostomy and Pg to give her daughter a little more time, to see if she will recover neurologic function. She has also expressed a desire that she be discharged to a vent facility that closer to her home in [place]. She states that if she does not improve, then at that tme she re-consider goals of care. Discussed with general surgery, consult placed for trach and PEG Discussed with case management CONDITION: FAIR PROGNOSIS: GUARDED TO GRAVE CODE STATUS: DNAR The high probability of a clinically significant, sudden or life threatening d eterioration of the [Neurology Respiratory, Cardiovascular] system(s) required my full and direct attention, intervention and personal management. The aggregate critical care time was [31] minutes. This time is in addition to time spent performing reported procedures but includes the following: [x] Data Review and interpretation [x] Patient assessment and monitoring of vital signs [x] Documentation [x] Medication orders and management Subjective Date of service: 04/11/19 Principal diagnosis: Ac Hypoxemic Resp Failure; DKA; Severe sepsis with shock; ANGELICA Interval history: Patient is seen today for: Acute Hypoxemic Resp Failure; Ac toxic metabolic encephalopathy; DKA; Severe sepsis with shock; Possible aspiration pneumonia; History of polysubstance abuse; History of seizure disorder; Acute kidney injury, possibly on chronic Seen and examined at bedside; 24hour events reviewed; nursing and respiratory care staff consulted; no adverse overnight events reported to me; resting peacefully in bed; AMS is persistent; remains off vasopressor but on MVS; no emesis or overt aspiration and no high grade fevers Vitals, labs,medications, chart reviewed. Discussed in ICU-IDT Objective Vital Signs - 12hr 04/10/19 04/10/19 04/10/19 23:00 23:41 23:43 Temperature 98.4 F 98.4 F Pulse Rate 111 H Pulse Rate [ Right Radial] Respiratory 16 Rate Blood Pressure 118/83 O2 Sat by Pulse 94 Oximetry 04/11/19 04/11/19 04/11/19 00:00 00:28 00:56 Temperature Pulse Rate 112 H 101 H 106 H Pulse Rate [ Right Radial] Respiratory 13 Rate Blood Pressure 116/86 116/86 O2 Sat by Pulse 96 98 Oximetry 04/11/19 04/11/19 04/11/19 01:00 02:00 03:00 Temperature Pulse Rate 111 H 113 H 111 H Pulse Rate [ Right Radial] Respiratory 14 23 15 Rate Blood Pressure 126/83 132/89 121/81 O2 Sat by Pulse 95 97 97 Oximetry 04/11/19 04/11/19 04/11/19 03:42 04:00 04:53 Temperature 98.8 F Pulse Rate 115 H 109 H Pulse Rate [ Right Radial] Respiratory 14 Rate Blood Pressure 120/80 120/80 O2 Sat by Pulse 98 99 Oximetry 04/11/19 04/11/19 04/11/19 05:00 06:00 07:00 Temperature Pulse Rate 117 H 113 H 108 H Pulse Rate [ Right Radial] Respiratory 16 18 15 Rate Blood Pressure 120/80 122/80 120/83 O2 Sat by Pulse 97 94 96 Oximetry 04/11/19 04/11/19 04/11/19 07:12 08:00 09:00 Temperature 98.1 F Pulse Rate 104 H 114 H 114 H Pulse Rate [ 114 H Right Radial] Respiratory 16 16 Rate Blood Pressure 120/83 133/75 126/82 O2 Sat by Pulse 99 95 94 Oximetry 04/11/19 09:06 Temperature Pulse Rate 110 H Pulse Rate [ Right Radial] Respiratory 14 Rate Blood Pressure 126/82 O2 Sat by Pulse 98 Oximetry Constitutional: no acute distress, other (young CF normocephalic and atraumatic on MVS) Eyes: non-icteric ENT: oropharynx moist, other (ETT 22-23 cm Jessi) Neck: supple, no lymphadenopathy, no JVD Effort: normal Ascultation: Bilateral: rhonchi Percussion: Bilateral: not dull Cardiovascular: regular rate and rhythm, other (sinus tachycardia, S1,S2, no murmurs, gallops or rubs) Gastrointestinal: normoactive bowel sounds, soft, non-tender Integumentary: erythema (noted on upper extremity) Extremities: no cyanosis, pink and warm, pulses normal, no ischemia or petechiae, edema (trace to 1+) Neurologic: unable to assess (remains unresponsive, opens eyes on suctioning, not obeying commands) Psychiatric: other (unable to assess) CBC and BMP: 04/10/19 04:15 04/10/19 04:15 ABG, PT/INR, D-dimer: ABG POC ABG pH 7.374 (7.35-7.45) 04/04/19 03:46 ABG pH 7.396 pH Units (7.350-7.450) 04/03/19 05:35 POC ABG pCO2 36.2 (35-45) 04/04/19 03:46 ABG pCO2 32.2 mm Hg 04/03/19 05:35 POC ABG pO2 96 (80-105) 04/04/19 03:46 ABG pO2 97.7 mm Hg (80.0-90.0) H 04/03/19 05:35 POC ABG HCO3 21.2 (22-26 mml/L) 04/04/19 03:46 POC ABG Total CO2 22 (23-27mmol/L) 04/04/19 03:46 POC ABG O2 Sat 97 04/04/19 03:46 ABG O2 Saturation 97.6 % (95.0-99.0) 04/03/19 05:35 PT/INR, D-dimer PT 13.9 Sec. (12.2-14.9) 04/01/19 17:14 INR 1.10 (0.87-1.13) 04/01/19 17:14 4526.86 ng/mlDDU (0-234) H 04/06/19 00:06 Abnormal lab findings: Abnormal Labs 03/29/19 03/29/19 03/29/19 19:11 19:20 19:20 WBC 26.7 H RBC 2.52 L Hgb 8.1 L Hct MCV 148 H MCH MCHC 22 L RDW 18.5 H Plt Count [place] % (Auto) Lymph # Seg Neuts % (Manual) 82.0 H Lymphocytes % (Manual) 7.0 L Nucleated RBC % Seg Neutrophils # Man 21.9 H Lymphocytes # (Manual) Monocytes # (Manual) 1.9 H PT 21.8 H INR 1.95 H APTT 74.5 H* D-Dimer POC ABG pH ABG pH POC ABG pO2 ABG pO2 ABG HCO3 ABG O2 Saturation ABG Base Excess ABG Hemoglobin VBG pH Oxyhemoglobin Sodium Potassium Chloride Carbon Dioxide BUN Creatinine Glucose POC Glucose > 500 H Lactic Acid Calcium Phosphorus Magnesium Iron TIBC Direct Bilirubin AST ALT Alkaline Phosphatase Total Creatine Kinase CK-MB (CK-2) C-Reactive Protein Total Protein Albumin Vitamin B12 Salicylates Acetaminophen Miscellaneous Test Crossmatch 03/29/19 03/29/19 03/29/19 19:20 19:47 20:59 WBC RBC Hgb Hct MCV MCH MCHC RDW Plt Count [place] % (Auto) Lymph # Seg Neuts % (Manual) Lymphocytes % (Manual) Nucleated RBC % Seg Neutrophils # Man Lymphocytes # (Manual) Monocytes # (Manual) PT INR APTT D-Dimer POC ABG pH 6.892 L ABG pH POC ABG pO2 236 H ABG pO2 ABG HCO3 ABG O2 Saturation ABG Base Excess ABG Hemoglobin VBG pH 6.800 L* Oxyhemoglobin Sodium 118 L* Potassium 9.0 H* Chloride 64.5 L Carbon Dioxide 7 L* BUN 53 H Creatinine 2.1 H Glucose 2196 H* POC Glucose Lactic Acid Calcium 12.4 H* Phosphorus Magnesium Iron TIBC Direct Bilirubin AST 3900 H ALT 1034 H Alkaline Phosphatase 316 H Total Creatine Kinase CK-MB (CK-2) C-Reactive Protein Total Protein 5.1 L Albumin 2.8 L Vitamin B12 Salicylates Acetaminophen Miscellaneous Test Crossmatch 03/29/19 03/29/19 03/29/19 22:45 22:45 22:45 WBC RBC Hgb Hct MCV MCH MCHC RDW Plt Count [place] % (Auto) Lymph # Seg Neuts % (Manual) Lymphocytes % (Manual) Nucleated RBC % Seg Neutrophils # Man Lymphocytes # (Manual) Monocytes # (Manual) PT INR APTT D-Dimer POC ABG pH ABG pH POC ABG pO2 ABG pO2 ABG HCO3 ABG O2 Saturation ABG Base Excess ABG Hemoglobin VBG pH Oxyhemoglobin Sodium 132 L D Potassium 7.0 H* Chloride 84.3 L Carbon Dioxide 3 L* BUN 48 H Creatinine 1.8 H Glucose 1779 H* POC Glucose Lactic Acid Calcium Phosphorus 21.70 H Magnesium 4.70 H Iron TIBC Direct Bilirubin AST ALT Alkaline Phosphatase Total Creatine Kinase 363 H CK-MB (CK-2) C-Reactive Protein Total Protein Albumin Vitamin B12 Salicylates Acetaminophen Miscellaneous Test Crossmatch 03/29/19 03/29/19 03/30/19 Unknown Unknown 00:11 WBC RBC Hgb Hct MCV MCH MCHC RDW Plt Count [place] % (Auto) Lymph # Seg Neuts % (Manual) Lymphocytes % (Manual) Nucleated RBC % Seg Neutrophils # Man Lymphocytes # (Manual) Monocytes # (Manual) PT INR APTT D-Dimer POC ABG pH ABG pH POC ABG pO2 ABG pO2 ABG HCO3 ABG O2 Saturation ABG Base Excess ABG Hemoglobin VBG pH Oxyhemoglobin Sodium 122 L Potassium 7.9 H* 6.4 H* Chloride 75.3 L 89.7 L Carbon Dioxide 3 L* 12 L D BUN 52 H 46 H Creatinine 2.0 H 1.7 H Glucose 2043 H* 1591 H* POC Glucose Lactic Acid Calcium 7.8 L Phosphorus 19.30 H Magnesium 3.90 H Iron TIBC Direct Bilirubin AST ALT Alkaline Phosphatase Total Creatine Kinase CK-MB (CK-2) C-Reactive Protein Total Protein Albumin Vitamin B12 Salicylates Acetaminophen Miscellaneous Test Crossmatch 03/30/19 03/30/19 03/30/19 00:11 02:14 02:14 WBC RBC Hgb Hct MCV MCH MCHC RDW Plt Count [place] % (Auto) Lymph # Seg Neuts % (Manual) Lymphocytes % (Manual) Nucleated RBC % Seg Neutrophils # Man Lymphocytes # (Manual) Monocytes # (Manual) PT INR APTT D-Dimer POC ABG pH ABG pH POC ABG pO2 ABG pO2 ABG HCO3 ABG O2 Saturation ABG Base Excess ABG Hemoglobin VBG pH Oxyhemoglobin Sodium Potassium Chloride Carbon Dioxide 9 L* BUN 45 H Creatinine 1.7 H Glucose 1155 H* POC Glucose Lactic Acid Calcium 7.9 L Phosphorus 10.90 H D 5.30 H D Magnesium 3.10 H 2.90 H Iron TIBC Direct Bilirubin AST ALT Alkaline Phosphatase Total Creatine Kinase CK-MB (CK-2) C-Reactive Protein Total Protein Albumin Vitamin B12 Salicylates Acetaminophen Miscellaneous Test Crossmatch 03/30/19 03/30/19 03/30/19 03:15 03:30 04:23 WBC 18.0 H RBC 2.31 L Hgb 7.3 L Hct 23.8 L D MCV 103 H MCH MCHC RDW 17.1 H Plt Count [place] % (Auto) Lymph # Seg Neuts % (Manual) 79.0 H Lymphocytes % (Manual) Nucleated RBC % Seg Neutrophils # Man 14.2 H Lymphocytes # (Manual) Monocytes # (Manual) PT INR APTT D-Dimer POC ABG pH 7.251 L ABG pH POC ABG pO2 156 H ABG pO2 ABG HCO3 ABG O2 Saturation ABG Base Excess ABG Hemoglobin VBG pH Oxyhemoglobin Sodium Potassium Chloride Carbon Dioxide BUN Creatinine Glucose POC Glucose Lactic Acid Calcium Phosphorus Magnesium Iron TIBC Direct Bilirubin AST ALT Alkaline Phosphatase Total Creatine Kinase CK-MB (CK-2) C-Reactive Protein Total Protein Albumin Vitamin B12 Salicylates Acetaminophen Miscellaneous Test Crossmatch See Detail 03/30/19 03/30/19 03/30/19 05:26 05:26 10:38 WBC RBC Hgb Hct MCV MCH MCHC RDW Plt Count [place] % (Auto) Lymph # Seg Neuts % (Manual) Lymphocytes % (Manual) Nucleated RBC % Seg Neutrophils # Man Lymphocytes # (Manual) Monocytes # (Manual) PT INR APTT D-Dimer POC ABG pH ABG pH POC ABG pO2 ABG pO2 ABG HCO3 ABG O2 Saturation ABG Base Excess ABG Hemoglobin VBG pH Oxyhemoglobin Sodium 158 H D Potassium 3.5 L Chloride 109.3 H Carbon Dioxide 19 L D BUN 40 H Creatinine 1.5 H Glucose 760 H* POC Glucose 380 H Lactic Acid Calcium 7.3 L Phosphorus Magnesium 2.60 H Iron TIBC Direct Bilirubin AST 49279 H ALT 2156 H Alkaline Phosphatase 271 H Total Creatine Kinase 2465 H CK-MB (CK-2) 52.7 H C-Reactive Protein Total Protein 4.5 L Albumin 2.4 L Vitamin B12 Salicylates Acetaminophen Miscellaneous Test Crossmatch 03/30/19 03/30/19 03/30/19 11:08 12:25 12:57 WBC RBC Hgb Hct MCV MCH MCHC RDW Plt Count [place] % (Auto) Lymph # Seg Neuts % (Manual) Lymphocytes % (Manual) Nucleated RBC % Seg Neutrophils # Man Lymphocytes # (Manual) Monocytes # (Manual) PT INR APTT D-Dimer POC ABG pH ABG pH POC ABG pO2 ABG pO2 ABG HCO3 ABG O2 Saturation ABG Base Excess ABG Hemoglobin VBG pH Oxyhemoglobin Sodium 156 H Potassium 3.2 L Chloride 116.4 H Carbon Dioxide 21 L BUN 37 H Creatinine Glucose 162 H POC Glucose 263 H 196 H Lactic Acid Calcium 7.2 L Phosphorus Magnesium Iron TIBC Direct Bilirubin AST ALT Alkaline Phosphatase Total Creatine Kinase CK-MB (CK-2) C-Reactive Protein Total Protein Albumin Vitamin B12 Salicylates Acetaminophen Miscellaneous Test Crossmatch 03/30/19 03/30/19 03/30/19 12:57 12:57 12:57 WBC RBC Hgb Hct MCV MCH MCHC RDW Plt Count [place] % (Auto) Lymph # Seg Neuts % (Manual) Lymphocytes % (Manual) Nucleated RBC % Seg Neutrophils # Man Lymphocytes # (Manual) Monocytes # (Manual) PT 21.0 H INR 1.86 H APTT D-Dimer POC ABG pH ABG pH POC ABG pO2 ABG pO2 ABG HCO3 ABG O2 Saturation ABG Base Excess ABG Hemoglobin VBG pH Oxyhemoglobin Sodium Potassium Chloride Carbon Dioxide BUN Creatinine Glucose POC Glucose Lactic Acid 9.00 H* Calcium Phosphorus Magnesium Iron TIBC Direct Bilirubin AST ALT Alkaline Phosphatase Total Creatine Kinase CK-MB (CK-2) C-Reactive Protein 2.40 H Total Protein Albumin Vitamin B12 Salicylates Acetaminophen Miscellaneous Test Crossmatch 03/30/19 03/30/19 03/30/19 13:23 14:00 14:47 WBC RBC Hgb Hct MCV MCH MCHC RDW Plt Count [place] % (Auto) Lymph # Seg Neuts % (Manual) Lymphocytes % (Manual) Nucleated RBC % Seg Neutrophils # Man Lymphocytes # (Manual) Monocytes # (Manual) PT INR APTT D-Dimer POC ABG pH ABG pH POC ABG pO2 ABG pO2 ABG HCO3 ABG O2 Saturation ABG Base Excess ABG Hemoglobin VBG pH Oxyhemoglobin Sodium Potassium Chloride Carbon Dioxide BUN Creatinine Glucose POC Glucose 176 H 245 H Lactic Acid Calcium Phosphorus Magnesium Iron TIBC Direct Bilirubin AST ALT Alkaline Phosphatase Total Creatine Kinase CK-MB (CK-2) C-Reactive Protein Total Protein Albumin Vitamin B12 Salicylates Acetaminophen Miscellaneous Test Flexitest 1 H Crossmatch 03/30/19 03/30/19 03/30/19 16:11 17:11 17:46 WBC RBC Hgb Hct MCV MCH MCHC RDW Plt Count [place] % (Auto) Lymph # Seg Neuts % (Manual) Lymphocytes % (Manual) Nucleated RBC % Seg Neutrophils # Man Lymphocytes # (Manual) Monocytes # (Manual) PT INR APTT D-Dimer POC ABG pH ABG pH POC ABG pO2 ABG pO2 ABG HCO3 ABG O2 Saturation ABG Base Excess ABG Hemoglobin VBG pH Oxyhemoglobin Sodium Potassium Chloride Carbon Dioxide BUN Creatinine Glucose POC Glucose 181 H 167 H 125 H Lactic Acid Calcium Phosphorus Magnesium Iron TIBC Direct Bilirubin AST ALT Alkaline Phosphatase Total Creatine Kinase CK-MB (CK-2) C-Reactive Protein Total Protein Albumin Vitamin B12 Salicylates Acetaminophen Miscellaneous Test Crossmatch 03/30/19 03/30/19 03/30/19 18:59 21:31 22:19 WBC RBC Hgb Hct MCV MCH MCHC RDW Plt Count [place] % (Auto) Lymph # Seg Neuts % (Manual) Lymphocytes % (Manual) Nucleated RBC % Seg Neutrophils # Man Lymphocytes # (Manual) Monocytes # (Manual) PT INR APTT D-Dimer POC ABG pH ABG pH POC ABG pO2 ABG pO2 ABG HCO3 ABG O2 Saturation ABG Base Excess ABG Hemoglobin VBG pH Oxyhemoglobin Sodium Potassium Chloride Carbon Dioxide BUN Creatinine Glucose POC Glucose 140 H 166 H 115 H Lactic Acid Calcium Phosphorus Magnesium Iron TIBC Direct Bilirubin AST ALT Alkaline Phosphatase Total Creatine Kinase CK-MB (CK-2) C-Reactive Protein Total Protein Albumin Vitamin B12 Salicylates Acetaminophen Miscellaneous Test Crossmatch 03/30/19 03/30/19 03/30/19 23:13 Unknown Unknown WBC RBC Hgb Hct MCV MCH MCHC RDW Plt Count [place] % (Auto) Lymph # Seg Neuts % (Manual) Lymphocytes % (Manual) Nucleated RBC % Seg Neutrophils # Man Lymphocytes # (Manual) Monocytes # (Manual) PT INR APTT D-Dimer POC ABG pH ABG pH POC ABG pO2 ABG pO2 47.8 L ABG HCO3 18.8 L ABG O2 Saturation 83.8 L ABG Base Excess -5.4 L ABG Hemoglobin 6.8 L VBG pH Oxyhemoglobin 81.8 L Sodium 157 H Potassium 3.3 L Chloride 117.9 H Carbon Dioxide 20 L BUN 36 H Creatinine Glucose 150 H POC Glucose 112 H Lactic Acid Calcium 7.2 L Phosphorus Magnesium Iron TIBC Direct Bilirubin AST ALT Alkaline Phosphatase Total Creatine Kinase CK-MB (CK-2) C-Reactive Protein Total Protein Albumin Vitamin B12 Salicylates Acetaminophen Miscellaneous Test Crossmatch 03/30/19 03/30/19 03/31/19 Unknown Unknown 00:03 WBC RBC Hgb Hct MCV MCH MCHC RDW Plt Count [place] % (Auto) Lymph # Seg Neuts % (Manual) Lymphocytes % (Manual) Nucleated RBC % Seg Neutrophils # Man Lymphocytes # (Manual) Monocytes # (Manual) PT INR APTT D-Dimer POC ABG pH ABG pH POC ABG pO2 ABG pO2 ABG HCO3 ABG O2 Saturation ABG Base Excess ABG Hemoglobin VBG pH Oxyhemoglobin Sodium Potassium Chloride Carbon Dioxide BUN Creatinine Glucose POC Glucose 188 H Lactic Acid Calcium Phosphorus Magnesium Iron TIBC Direct Bilirubin AST ALT Alkaline Phosphatase Total Creatine Kinase CK-MB (CK-2) C-Reactive Protein Total Protein Albumin Vitamin B12 Salicylates 0.8 L Acetaminophen < 5.0 L Miscellaneous Test Crossmatch 03/31/19 03/31/19 03/31/19 01:18 03:07 03:50 WBC RBC Hgb Hct MCV MCH MCHC RDW Plt Count [place] % (Auto) Lymph # Seg Neuts % (Manual) Lymphocytes % (Manual) Nucleated RBC % Seg Neutrophils # Man Lymphocytes # (Manual) Monocytes # (Manual) PT INR APTT D-Dimer POC ABG pH ABG pH 7.525 H POC ABG pO2 ABG pO2 178.0 H ABG HCO3 19.5 L ABG O2 Saturation 99.2 H ABG Base Excess -3.1 L ABG Hemoglobin 5.8 L VBG pH Oxyhemoglobin Sodium Potassium Chloride Carbon Dioxide BUN Creatinine Glucose POC Glucose 114 H 107 H Lactic Acid Calcium Phosphorus Magnesium Iron TIBC Direct Bilirubin AST ALT Alkaline Phosphatase Total Creatine Kinase CK-MB (CK-2) C-Reactive Protein Total Protein Albumin Vitamin B12 Salicylates Acetaminophen Miscellaneous Test Crossmatch 03/31/19 03/31/19 03/31/19 03:51 03:51 04:05 WBC RBC 1.89 L Hgb 6.1 L Hct 18.2 L* MCV MCH MCHC RDW 17.7 H Plt Count 89 L [place] % (Auto) Lymph # Seg Neuts % (Manual) 86.0 H Lymphocytes % (Manual) 10.0 L Nucleated RBC % 1.0 H Seg Neutrophils # Man Lymphocytes # (Manual) 0.7 L Monocytes # (Manual) PT INR APTT D-Dimer POC ABG pH ABG pH POC ABG pO2 ABG pO2 ABG HCO3 ABG O2 Saturation ABG Base Excess ABG Hemoglobin VBG pH Oxyhemoglobin Sodium 151 H Potassium 3.2 L Chloride 119.4 H Carbon Dioxide 17 L BUN 35 H Creatinine Glucose 139 H POC Glucose 153 H Lactic Acid Calcium 7.1 L Phosphorus Magnesium Iron TIBC Direct Bilirubin AST ALT Alkaline Phosphatase Total Creatine Kinase CK-MB (CK-2) C-Reactive Protein Total Protein Albumin Vitamin B12 Salicylates Acetaminophen Miscellaneous Test Crossmatch 03/31/19 03/31/19 03/31/19 05:05 05:35 06:23 WBC RBC Hgb Hct MCV MCH MCHC RDW Plt Count [place] % (Auto) Lymph # Seg Neuts % (Manual) Lymphocytes % (Manual) Nucleated RBC % Seg Neutrophils # Man Lymphocytes # (Manual) Monocytes # (Manual) PT INR APTT D-Dimer POC ABG pH ABG pH POC ABG pO2 ABG pO2 ABG HCO3 ABG O2 Saturation ABG Base Excess ABG Hemoglobin VBG pH Oxyhemoglobin Sodium Potassium Chloride Carbon Dioxide BUN Creatinine Glucose POC Glucose 176 H 133 H Lactic Acid 3.20 H* Calcium Phosphorus Magnesium Iron TIBC Direct Bilirubin AST ALT Alkaline Phosphatase Total Creatine Kinase CK-MB (CK-2) C-Reactive Protein Total Protein Albumin Vitamin B12 Salicylates Acetaminophen Miscellaneous Test Crossmatch 03/31/19 03/31/19 03/31/19 07:50 07:51 08:20 WBC RBC Hgb Hct MCV MCH MCHC RDW Plt Count [place] % (Auto) Lymph # Seg Neuts % (Manual) Lymphocytes % (Manual) Nucleated RBC % Seg Neutrophils # Man Lymphocytes # (Manual) Monocytes # (Manual) PT INR APTT D-Dimer POC ABG pH ABG pH POC ABG pO2 ABG pO2 ABG HCO3 ABG O2 Saturation ABG Base Excess ABG Hemoglobin VBG pH Oxyhemoglobin Sodium Potassium Chloride Carbon Dioxide BUN Creatinine Glucose POC Glucose 135 H Lactic Acid 3.30 H* Calcium Phosphorus Magnesium Iron 26 L TIBC 193 L Direct Bilirubin AST ALT Alkaline Phosphatase Total Creatine Kinase CK-MB (CK-2) C-Reactive Protein Total Protein Albumin Vitamin B12 Salicylates Acetaminophen Miscellaneous Test Crossmatch 03/31/19 03/31/19 03/31/19 08:20 08:20 09:06 WBC RBC Hgb Hct MCV MCH MCHC RDW Plt Count [place] % (Auto) Lymph # Seg Neuts % (Manual) Lymphocytes % (Manual) Nucleated RBC % Seg Neutrophils # Man Lymphocytes # (Manual) Monocytes # (Manual) PT INR APTT D-Dimer POC ABG pH ABG pH POC ABG pO2 ABG pO2 ABG HCO3 ABG O2 Saturation ABG Base Excess ABG Hemoglobin VBG pH Oxyhemoglobin Sodium 153 H Potassium 3.0 L Chloride 118.9 H Carbon Dioxide 18 L BUN 37 H Creatinine Glucose 132 H POC Glucose 145 H Lactic Acid Calcium 7.1 L Phosphorus Magnesium Iron TIBC Direct Bilirubin AST ALT Alkaline Phosphatase Total Creatine Kinase CK-MB (CK-2) C-Reactive Protein Total Protein Albumin Vitamin B12 > 2000 H Salicylates Acetaminophen Miscellaneous Test Crossmatch 03/31/19 03/31/19 03/31/19 10:47 11:49 13:04 WBC RBC Hgb Hct MCV MCH MCHC RDW Plt Count [place] % (Auto) Lymph # Seg Neuts % (Manual) Lymphocytes % (Manual) Nucleated RBC % Seg Neutrophils # Man Lymphocytes # (Manual) Monocytes # (Manual) PT INR APTT D-Dimer POC ABG pH ABG pH POC ABG pO2 ABG pO2 ABG HCO3 ABG O2 Saturation ABG Base Excess ABG Hemoglobin VBG pH Oxyhemoglobin Sodium Potassium Chloride Carbon Dioxide BUN Creatinine Glucose POC Glucose 153 H 174 H 214 H Lactic Acid Calcium Phosphorus Magnesium Iron TIBC Direct Bilirubin AST ALT Alkaline Phosphatase Total Creatine Kinase CK-MB (CK-2) C-Reactive Protein Total Protein Albumin Vitamin B12 Salicylates Acetaminophen Miscellaneous Test Crossmatch 03/31/19 03/31/19 03/31/19 13:42 15:08 16:08 WBC RBC Hgb Hct MCV MCH MCHC RDW Plt Count [place] % (Auto) Lymph # Seg Neuts % (Manual) Lymphocytes % (Manual) Nucleated RBC % Seg Neutrophils # Man Lymphocytes # (Manual) Monocytes # (Manual) PT INR APTT D-Dimer POC ABG pH ABG pH POC ABG pO2 ABG pO2 ABG HCO3 ABG O2 Saturation ABG Base Excess ABG Hemoglobin VBG pH Oxyhemoglobin Sodium Potassium Chloride Carbon Dioxide BUN Creatinine Glucose POC Glucose 186 H 136 H 150 H Lactic Acid Calcium Phosphorus Magnesium Iron TIBC Direct Bilirubin AST ALT Alkaline Phosphatase Total Creatine Kinase CK-MB (CK-2) C-Reactive Protein Total Protein Albumin Vitamin B12 Salicylates Acetaminophen Miscellaneous Test Crossmatch 03/31/19 03/31/19 03/31/19 17:11 17:30 17:30 WBC RBC Hgb 7.7 L Hct 23.0 L MCV MCH MCHC RDW Plt Count [place] % (Auto) Lymph # Seg Neuts % (Manual) Lymphocytes % (Manual) Nucleated RBC % Seg Neutrophils # Man Lymphocytes # (Manual) Monocytes # (Manual) PT INR APTT D-Dimer POC ABG pH ABG pH POC ABG pO2 ABG pO2 ABG HCO3 ABG O2 Saturation ABG Base Excess ABG Hemoglobin VBG pH Oxyhemoglobin Sodium 153 H Potassium 3.5 L Chloride 119.3 H Carbon Dioxide 20 L BUN 34 H Creatinine Glucose 162 H POC Glucose 140 H Lactic Acid Calcium 7.6 L Phosphorus Magnesium Iron TIBC Direct Bilirubin AST ALT Alkaline Phosphatase Total Creatine Kinase CK-MB (CK-2) C-Reactive Protein Total Protein Albumin Vitamin B12 Salicylates Acetaminophen Miscellaneous Test Crossmatch 03/31/19 03/31/19 03/31/19 17:59 18:58 20:28 WBC RBC Hgb Hct MCV MCH MCHC RDW Plt Count [place] % (Auto) Lymph # Seg Neuts % (Manual) Lymphocytes % (Manual) Nucleated RBC % Seg Neutrophils # Man Lymphocytes # (Manual) Monocytes # (Manual) PT INR APTT D-Dimer POC ABG pH ABG pH POC ABG pO2 ABG pO2 ABG HCO3 ABG O2 Saturation ABG Base Excess ABG Hemoglobin VBG pH Oxyhemoglobin Sodium Potassium Chloride Carbon Dioxide BUN Creatinine Glucose POC Glucose 156 H 152 H 138 H Lactic Acid Calcium Phosphorus Magnesium Iron TIBC Direct Bilirubin AST ALT Alkaline Phosphatase Total Creatine Kinase CK-MB (CK-2) C-Reactive Protein Total Protein Albumin Vitamin B12 Salicylates Acetaminophen Miscellaneous Test Crossmatch 03/31/19 03/31/19 03/31/19 21:09 22:15 23:10 WBC RBC Hgb Hct MCV MCH MCHC RDW Plt Count [place] % (Auto) Lymph # Seg Neuts % (Manual) Lymphocytes % (Manual) Nucleated RBC % Seg Neutrophils # Man Lymphocytes # (Manual) Monocytes # (Manual) PT INR APTT D-Dimer POC ABG pH ABG pH POC ABG pO2 ABG pO2 ABG HCO3 ABG O2 Saturation ABG Base Excess ABG Hemoglobin VBG pH Oxyhemoglobin Sodium Potassium Chloride Carbon Dioxide BUN Creatinine Glucose POC Glucose 136 H 137 H 148 H Lactic Acid Calcium Phosphorus Magnesium Iron TIBC Direct Bilirubin AST ALT Alkaline Phosphatase Total Creatine Kinase CK-MB (CK-2) C-Reactive Protein Total Protein Albumin Vitamin B12 Salicylates Acetaminophen Miscellaneous Test Crossmatch 04/01/19 04/01/19 04/01/19 00:05 01:17 02:11 WBC RBC Hgb Hct MCV MCH MCHC RDW Plt Count [place] % (Auto) Lymph # Seg Neuts % (Manual) Lymphocytes % (Manual) Nucleated RBC % Seg Neutrophils # Man Lymphocytes # (Manual) Monocytes # (Manual) PT INR APTT D-Dimer POC ABG pH ABG pH POC ABG pO2 ABG pO2 ABG HCO3 ABG O2 Saturation ABG Base Excess ABG Hemoglobin VBG pH Oxyhemoglobin Sodium Potassium Chloride Carbon Dioxide BUN Creatinine Glucose POC Glucose 143 H 151 H 155 H Lactic Acid Calcium Phosphorus Magnesium Iron TIBC Direct Bilirubin AST ALT Alkaline Phosphatase Total Creatine Kinase CK-MB (CK-2) C-Reactive Protein Total Protein Albumin Vitamin B12 Salicylates Acetaminophen Miscellaneous Test Crossmatch 04/01/19 04/01/19 04/01/19 03:12 04:03 04:16 WBC RBC Hgb Hct MCV MCH MCHC RDW Plt Count [place] % (Auto) Lymph # Seg Neuts % (Manual) Lymphocytes % (Manual) Nucleated RBC % Seg Neutrophils # Man Lymphocytes # (Manual) Monocytes # (Manual) PT INR APTT D-Dimer POC ABG pH ABG pH POC ABG pO2 ABG pO2 ABG HCO3 ABG O2 Saturation ABG Base Excess ABG Hemoglobin VBG pH Oxyhemoglobin Sodium Potassium Chloride Carbon Dioxide BUN Creatinine Glucose POC Glucose 140 H 143 H 142 H Lactic Acid Calcium Phosphorus Magnesium Iron TIBC Direct Bilirubin AST ALT Alkaline Phosphatase Total Creatine Kinase CK-MB (CK-2) C-Reactive Protein Total Protein Albumin Vitamin B12 Salicylates Acetaminophen Miscellaneous Test Crossmatch 04/01/19 04/01/19 04/01/19 05:01 05:01 05:08 WBC RBC 2.05 L Hgb 6.8 L Hct 20.5 L MCV 100 H MCH 33 H MCHC RDW 17.7 H Plt Count 53 L [place] % (Auto) Lymph # Seg Neuts % (Manual) 71.0 H Lymphocytes % (Manual) Nucleated RBC % Seg Neutrophils # Man Lymphocytes # (Manual) Monocytes # (Manual) PT INR APTT D-Dimer POC ABG pH ABG pH POC ABG pO2 ABG pO2 ABG HCO3 ABG O2 Saturation ABG Base Excess ABG Hemoglobin VBG pH Oxyhemoglobin Sodium Potassium Chloride Carbon Dioxide BUN Creatinine Glucose POC Glucose 119 H Lactic Acid Calcium Phosphorus Magnesium Iron TIBC Direct Bilirubin 0.3 H AST 4601 H ALT 1542 H Alkaline Phosphatase 185 H Total Creatine Kinase CK-MB (CK-2) C-Reactive Protein Total Protein 3.8 L Albumin 1.6 L Vitamin B12 Salicylates Acetaminophen Miscellaneous Test Crossmatch 04/01/19 04/01/19 04/01/19 05:23 06:37 08:15 WBC RBC Hgb Hct MCV MCH MCHC RDW Plt Count [place] % (Auto) Lymph # Seg Neuts % (Manual) Lymphocytes % (Manual) Nucleated RBC % Seg Neutrophils # Man Lymphocytes # (Manual) Monocytes # (Manual) PT INR APTT D-Dimer POC ABG pH ABG pH POC ABG pO2 ABG pO2 ABG HCO3 ABG O2 Saturation ABG Base Excess ABG Hemoglobin VBG pH Oxyhemoglobin Sodium Potassium Chloride Carbon Dioxide BUN Creatinine Glucose POC Glucose 115 H 124 H 138 H Lactic Acid Calcium Phosphorus Magnesium Iron TIBC Direct Bilirubin AST ALT Alkaline Phosphatase Total Creatine Kinase CK-MB (CK-2) C-Reactive Protein Total Protein Albumin Vitamin B12 Salicylates Acetaminophen Miscellaneous Test Crossmatch 04/01/19 04/01/19 04/01/19 09:50 10:10 10:31 WBC RBC Hgb 6.5 L Hct 19.2 L* MCV MCH MCHC RDW Plt Count [place] % (Auto) Lymph # Seg Neuts % (Manual) Lymphocytes % (Manual) Nucleated RBC % Seg Neutrophils # Man Lymphocytes # (Manual) Monocytes # (Manual) PT INR APTT D-Dimer POC ABG pH ABG pH POC ABG pO2 ABG pO2 ABG HCO3 ABG O2 Saturation ABG Base Excess ABG Hemoglobin VBG pH Oxyhemoglobin Sodium 149 H Potassium 3.5 L Chloride 119.9 H Carbon Dioxide 21 L BUN 33 H Creatinine 0.5 L Glucose 142 H POC Glucose 185 H Lactic Acid Calcium 7.3 L Phosphorus Magnesium Iron TIBC Direct Bilirubin AST 3686 H ALT 1440 H Alkaline Phosphatase 185 H Total Creatine Kinase CK-MB (CK-2) C-Reactive Protein Total Protein 3.7 L Albumin 1.8 L Vitamin B12 Salicylates Acetaminophen Miscellaneous Test Crossmatch 04/01/19 04/01/19 04/01/19 11:35 13:05 14:35 WBC RBC Hgb Hct MCV MCH MCHC RDW Plt Count [place] % (Auto) Lymph # Seg Neuts % (Manual) Lymphocytes % (Manual) Nucleated RBC % Seg Neutrophils # Man Lymphocytes # (Manual) Monocytes # (Manual) PT INR APTT D-Dimer POC ABG pH ABG pH POC ABG pO2 ABG pO2 ABG HCO3 ABG O2 Saturation ABG Base Excess ABG Hemoglobin VBG pH Oxyhemoglobin Sodium Potassium Chloride Carbon Dioxide BUN Creatinine Glucose POC Glucose 201 H 169 H 134 H Lactic Acid Calcium Phosphorus Magnesium Iron TIBC Direct Bilirubin AST ALT Alkaline Phosphatase Total Creatine Kinase CK-MB (CK-2) C-Reactive Protein Total Protein Albumin Vitamin B12 Salicylates Acetaminophen Miscellaneous Test Crossmatch 04/01/19 04/01/19 04/01/19 17:13 17:14 18:30 WBC RBC Hgb Hct MCV MCH MCHC RDW Plt Count [place] % (Auto) Lymph # Seg Neuts % (Manual) Lymphocytes % (Manual) Nucleated RBC % Seg Neutrophils # Man Lymphocytes # (Manual) Monocytes # (Manual) PT INR APTT D-Dimer 5203.68 H POC ABG pH ABG pH POC ABG pO2 ABG pO2 ABG HCO3 ABG O2 Saturation ABG Base Excess ABG Hemoglobin VBG pH Oxyhemoglobin Sodium Potassium Chloride Carbon Dioxide BUN Creatinine Glucose POC Glucose 69 L 128 H Lactic Acid Calcium Phosphorus Magnesium Iron TIBC Direct Bilirubin AST ALT Alkaline Phosphatase Total Creatine Kinase CK-MB (CK-2) C-Reactive Protein Total Protein Albumin Vitamin B12 Salicylates Acetaminophen Miscellaneous Test Crossmatch 04/01/19 04/01/19 04/02/19 22:50 Unknown 03:40 WBC RBC Hgb Hct MCV MCH MCHC RDW Plt Count [place] % (Auto) Lymph # Seg Neuts % (Manual) Lymphocytes % (Manual) Nucleated RBC % Seg Neutrophils # Man Lymphocytes # (Manual) Monocytes # (Manual) PT INR APTT D-Dimer POC ABG pH ABG pH POC ABG pO2 ABG pO2 78.3 L 142.8 H ABG HCO3 15.5 L ABG O2 Saturation ABG Base Excess -3.5 L -8.2 L ABG Hemoglobin 6.8 L 8.2 L VBG pH Oxyhemoglobin 94.3 L Sodium Potassium Chloride Carbon Dioxide BUN Creatinine Glucose POC Glucose 342 H Lactic Acid Calcium Phosphorus Magnesium Iron TIBC Direct Bilirubin AST ALT Alkaline Phosphatase Total Creatine Kinase CK-MB (CK-2) C-Reactive Protein Total Protein Albumin Vitamin B12 Salicylates Acetaminophen Miscellaneous Test Crossmatch 04/02/19 04/02/19 04/02/19 03:49 06:50 07:48 WBC RBC 2.65 L Hgb 8.6 L Hct 25.1 L MCV MCH MCHC RDW 17.6 H Plt Count 48 L [place] % (Auto) Lymph # Seg Neuts % (Manual) Lymphocytes % (Manual) Nucleated RBC % Seg Neutrophils # Man Lymphocytes # (Manual) Monocytes # (Manual) PT INR APTT D-Dimer POC ABG pH ABG pH POC ABG pO2 ABG pO2 ABG HCO3 ABG O2 Saturation ABG Base Excess ABG Hemoglobin VBG pH Oxyhemoglobin Sodium Potassium Chloride Carbon Dioxide BUN Creatinine Glucose POC Glucose 247 H 200 H Lactic Acid Calcium Phosphorus Magnesium Iron TIBC Direct Bilirubin AST ALT Alkaline Phosphatase Total Creatine Kinase CK-MB (CK-2) C-Reactive Protein Total Protein Albumin Vitamin B12 Salicylates Acetaminophen Miscellaneous Test Crossmatch 04/02/19 04/02/19 04/02/19 07:48 11:18 14:07 WBC RBC Hgb Hct MCV MCH MCHC RDW Plt Count [place] % (Auto) Lymph # Seg Neuts % (Manual) Lymphocytes % (Manual) Nucleated RBC % Seg Neutrophils # Man Lymphocytes # (Manual) Monocytes # (Manual) PT INR APTT D-Dimer POC ABG pH ABG pH POC ABG pO2 ABG pO2 ABG HCO3 ABG O2 Saturation ABG Base Excess ABG Hemoglobin VBG pH Oxyhemoglobin Sodium Potassium 3.5 L Chloride 115.7 H Carbon Dioxide 19 L BUN 29 H Creatinine 0.5 L Glucose 159 H POC Glucose 154 H 149 H Lactic Acid Calcium 7.5 L Phosphorus Magnesium Iron TIBC Direct Bilirubin AST 1418 H ALT 1134 H Alkaline Phosphatase 242 H Total Creatine Kinase CK-MB (CK-2) C-Reactive Protein Total Protein 4.2 L Albumin 2.1 L Vitamin B12 Salicylates Acetaminophen Miscellaneous Test Crossmatch 04/02/19 04/02/19 04/02/19 18:09 19:46 23:05 WBC RBC Hgb Hct MCV MCH MCHC RDW Plt Count [place] % (Auto) Lymph # Seg Neuts % (Manual) Lymphocytes % (Manual) Nucleated RBC % Seg Neutrophils # Man Lymphocytes # (Manual) Monocytes # (Manual) PT INR APTT D-Dimer POC ABG pH ABG pH POC ABG pO2 ABG pO2 ABG HCO3 ABG O2 Saturation ABG Base Excess ABG Hemoglobin VBG pH Oxyhemoglobin Sodium Potassium Chloride Carbon Dioxide BUN Creatinine Glucose POC Glucose 188 H 209 H 247 H Lactic Acid Calcium Phosphorus Magnesium Iron TIBC Direct Bilirubin AST ALT Alkaline Phosphatase Total Creatine Kinase CK-MB (CK-2) C-Reactive Protein Total Protein Albumin Vitamin B12 Salicylates Acetaminophen Miscellaneous Test Crossmatch 04/03/19 04/03/19 04/03/19 02:58 03:40 03:40 WBC RBC 2.87 L Hgb 9.3 L Hct 27.0 L MCV MCH MCHC RDW 17.2 H Plt Count 65 L [place] % (Auto) 9.8 H Lymph # 1.1 L Seg Neuts % (Manual) Lymphocytes % (Manual) Nucleated RBC % Seg Neutrophils # Man Lymphocytes # (Manual) Monocytes # (Manual) PT INR APTT D-Dimer POC ABG pH ABG pH POC ABG pO2 ABG pO2 ABG HCO3 ABG O2 Saturation ABG Base Excess ABG Hemoglobin VBG pH Oxyhemoglobin Sodium 147 H Potassium 3.5 L Chloride 116.7 H Carbon Dioxide 18 L BUN Creatinine 0.4 L Glucose 150 H POC Glucose 166 H Lactic Acid Calcium 8.1 L Phosphorus 2.20 L Magnesium Iron TIBC Direct Bilirubin AST 594 H ALT 861 H Alkaline Phosphatase 299 H Total Creatine Kinase CK-MB (CK-2) C-Reactive Protein Total Protein 4.4 L Albumin 2.1 L Vitamin B12 Salicylates Acetaminophen Miscellaneous Test Crossmatch 04/03/19 04/03/19 04/03/19 05:35 07:02 08:23 WBC RBC Hgb Hct MCV MCH MCHC RDW Plt Count [place] % (Auto) Lymph # Seg Neuts % (Manual) Lymphocytes % (Manual) Nucleated RBC % Seg Neutrophils # Man Lymphocytes # (Manual) Monocytes # (Manual) PT INR APTT D-Dimer POC ABG pH ABG pH POC ABG pO2 ABG pO2 97.7 H ABG HCO3 19.3 L ABG O2 Saturation ABG Base Excess -5.0 L ABG Hemoglobin 8.0 L VBG pH Oxyhemoglobin Sodium Potassium Chloride Carbon Dioxide BUN Creatinine Glucose POC Glucose 135 H 132 H Lactic Acid Calcium Phosphorus Magnesium Iron TIBC Direct Bilirubin AST ALT Alkaline Phosphatase Total Creatine Kinase CK-MB (CK-2) C-Reactive Protein Total Protein Albumin Vitamin B12 Salicylates Acetaminophen Miscellaneous Test Crossmatch 04/03/19 04/03/19 04/03/19 11:58 15:11 17:53 WBC RBC Hgb Hct MCV MCH MCHC RDW Plt Count [place] % (Auto) Lymph # Seg Neuts % (Manual) Lymphocytes % (Manual) Nucleated RBC % Seg Neutrophils # Man Lymphocytes # (Manual) Monocytes # (Manual) PT INR APTT D-Dimer POC ABG pH ABG pH POC ABG pO2 ABG pO2 ABG HCO3 ABG O2 Saturation ABG Base Excess ABG Hemoglobin VBG pH Oxyhemoglobin Sodium Potassium Chloride Carbon Dioxide BUN Creatinine Glucose POC Glucose 179 H 213 H 223 H Lactic Acid Calcium Phosphorus Magnesium Iron TIBC Direct Bilirubin AST ALT Alkaline Phosphatase Total Creatine Kinase CK-MB (CK-2) C-Reactive Protein Total Protein Albumin Vitamin B12 Salicylates Acetaminophen Miscellaneous Test Crossmatch 04/03/19 04/04/19 04/04/19 23:06 02:36 06:41 WBC RBC Hgb Hct MCV MCH MCHC RDW Plt Count [place] % (Auto) Lymph # Seg Neuts % (Manual) Lymphocytes % (Manual) Nucleated RBC % Seg Neutrophils # Man Lymphocytes # (Manual) Monocytes # (Manual) PT INR APTT D-Dimer POC ABG pH ABG pH POC ABG pO2 ABG pO2 ABG HCO3 ABG O2 Saturation ABG Base Excess ABG Hemoglobin VBG pH Oxyhemoglobin Sodium Potassium Chloride Carbon Dioxide BUN Creatinine Glucose POC Glucose 189 H 157 H 131 H Lactic Acid Calcium Phosphorus Magnesium Iron TIBC Direct Bilirubin AST ALT Alkaline Phosphatase Total Creatine Kinase CK-MB (CK-2) C-Reactive Protein Total Protein Albumin Vitamin B12 Salicylates Acetaminophen Miscellaneous Test Crossmatch 04/04/19 04/04/19 04/04/19 11:42 15:45 18:21 WBC RBC Hgb Hct MCV MCH MCHC RDW Plt Count [place] % (Auto) Lymph # Seg Neuts % (Manual) Lymphocytes % (Manual) Nucleated RBC % Seg Neutrophils # Man Lymphocytes # (Manual) Monocytes # (Manual) PT INR APTT D-Dimer POC ABG pH ABG pH POC ABG pO2 ABG pO2 ABG HCO3 ABG O2 Saturation ABG Base Excess ABG Hemoglobin VBG pH Oxyhemoglobin Sodium Potassium Chloride Carbon Dioxide BUN Creatinine Glucose POC Glucose 233 H 236 H 255 H Lactic Acid Calcium Phosphorus Magnesium Iron TIBC Direct Bilirubin AST ALT Alkaline Phosphatase Total Creatine Kinase CK-MB (CK-2) C-Reactive Protein Total Protein Albumin Vitamin B12 Salicylates Acetaminophen Miscellaneous Test Crossmatch 04/04/19 04/05/19 04/05/19 21:21 03:06 06:05 WBC RBC 2.68 L Hgb 8.5 L Hct 26.3 L MCV 98 H MCH MCHC RDW 17.4 H Plt Count [place] % (Auto) Lymph # Seg Neuts % (Manual) Lymphocytes % (Manual) Nucleated RBC % Seg Neutrophils # Man Lymphocytes # (Manual) Monocytes # (Manual) PT INR APTT D-Dimer POC ABG pH ABG pH POC ABG pO2 ABG pO2 ABG HCO3 ABG O2 Saturation ABG Base Excess ABG Hemoglobin VBG pH Oxyhemoglobin Sodium Potassium Chloride Carbon Dioxide BUN Creatinine Glucose POC Glucose 132 H 161 H Lactic Acid Calcium Phosphorus Magnesium Iron TIBC Direct Bilirubin AST ALT Alkaline Phosphatase Total Creatine Kinase CK-MB (CK-2) C-Reactive Protein Total Protein Albumin Vitamin B12 Salicylates Acetaminophen Miscellaneous Test Crossmatch 04/05/19 04/05/19 04/05/19 06:05 06:49 10:23 WBC RBC Hgb Hct MCV MCH MCHC RDW Plt Count [place] % (Auto) Lymph # Seg Neuts % (Manual) Lymphocytes % (Manual) Nucleated RBC % Seg Neutrophils # Man Lymphocytes # (Manual) Monocytes # (Manual) PT INR APTT D-Dimer POC ABG pH ABG pH POC ABG pO2 ABG pO2 ABG HCO3 ABG O2 Saturation ABG Base Excess ABG Hemoglobin VBG pH Oxyhemoglobin Sodium Potassium Chloride 112.5 H Carbon Dioxide BUN Creatinine 0.2 L Glucose 237 H POC Glucose 283 H 296 H Lactic Acid Calcium 7.9 L Phosphorus Magnesium Iron TIBC Direct Bilirubin AST ALT Alkaline Phosphatase Total Creatine Kinase CK-MB (CK-2) C-Reactive Protein Total Protein Albumin Vitamin B12 Salicylates Acetaminophen Miscellaneous Test Crossmatch 04/05/19 04/05/19 04/05/19 14:46 18:19 20:35 WBC RBC Hgb Hct MCV MCH MCHC RDW Plt Count [place] % (Auto) Lymph # Seg Neuts % (Manual) Lymphocytes % (Manual) Nucleated RBC % Seg Neutrophils # Man Lymphocytes # (Manual) Monocytes # (Manual) PT INR APTT D-Dimer POC ABG pH ABG pH POC ABG pO2 ABG pO2 ABG HCO3 ABG O2 Saturation ABG Base Excess ABG Hemoglobin VBG pH Oxyhemoglobin Sodium Potassium Chloride Carbon Dioxide BUN Creatinine Glucose POC Glucose 225 H 259 H 236 H Lactic Acid Calcium Phosphorus Magnesium Iron TIBC Direct Bilirubin AST ALT Alkaline Phosphatase Total Creatine Kinase CK-MB (CK-2) C-Reactive Protein Total Protein Albumin Vitamin B12 Salicylates Acetaminophen Miscellaneous Test Crossmatch 04/05/19 04/06/19 04/06/19 23:11 00:06 03:14 WBC RBC Hgb Hct MCV MCH MCHC RDW Plt Count [place] % (Auto) Lymph # Seg Neuts % (Manual) Lymphocytes % (Manual) Nucleated RBC % Seg Neutrophils # Man Lymphocytes # (Manual) Monocytes # (Manual) PT INR APTT D-Dimer 4526.86 H POC ABG pH ABG pH POC ABG pO2 ABG pO2 ABG HCO3 ABG O2 Saturation ABG Base Excess ABG Hemoglobin VBG pH Oxyhemoglobin Sodium Potassium Chloride Carbon Dioxide BUN Creatinine Glucose POC Glucose 205 H 228 H Lactic Acid Calcium Phosphorus Magnesium Iron TIBC Direct Bilirubin AST ALT Alkaline Phosphatase Total Creatine Kinase CK-MB (CK-2) C-Reactive Protein Total Protein Albumin Vitamin B12 Salicylates Acetaminophen Miscellaneous Test Crossmatch 04/06/19 04/06/1904/06/19 05:20 05:20 07:57 WBC 15.1 H RBC 2.90 L Hgb 9.1 L Hct 28.0 L MCV MCH MCHC RDW 17.3 H Plt Count [place] % (Auto) Lymph # Seg Neuts % (Manual) Lymphocytes % (Manual) Nucleated RBC % Seg Neutrophils # Man Lymphocytes # (Manual) Monocytes # (Manual) PT INR APTT D-Dimer POC ABG pH ABG pH POC ABG pO2 ABG pO2 ABG HCO3 ABG O2 Saturation ABG Base Excess ABG Hemoglobin VBG pH Oxyhemoglobin Sodium Potassium Chloride Carbon Dioxide BUN Creatinine 0.2 L Glucose 161 H POC Glucose 191 H Lactic Acid Calcium 8.0 L Phosphorus Magnesium Iron TIBC Direct Bilirubin AST ALT Alkaline Phosphatase Total Creatine Kinase CK-MB (CK-2) C-Reactive Protein Total Protein Albumin Vitamin B12 Salicylates Acetaminophen Miscellaneous Test Crossmatch 04/06/19 04/06/19 04/06/19 12:09 18:24 22:07 WBC RBC Hgb Hct MCV MCH MCHC RDW Plt Count [place] % (Auto) Lymph # Seg Neuts % (Manual) Lymphocytes % (Manual) Nucleated RBC % Seg Neutrophils # Man Lymphocytes # (Manual) Monocytes # (Manual) PT INR APTT D-Dimer POC ABG pH ABG pH POC ABG pO2 ABG pO2 ABG HCO3 ABG O2 Saturation ABG Base Excess ABG Hemoglobin VBG pH Oxyhemoglobin Sodium Potassium Chloride Carbon Dioxide BUN Creatinine Glucose POC Glucose 143 H 161 H 140 H Lactic Acid Calcium Phosphorus Magnesium Iron TIBC Direct Bilirubin AST ALT Alkaline Phosphatase Total Creatine Kinase CK-MB (CK-2) C-Reactive Protein Total Protein Albumin Vitamin B12 Salicylates Acetaminophen Miscellaneous Test Crossmatch 04/07/19 04/07/19 04/07/19 03:00 04:30 04:30 WBC 13.0 H RBC 2.65 L Hgb 8.3 L Hct 25.5 L MCV MCH MCHC RDW 17.0 H Plt Count [place] % (Auto) Lymph # Seg Neuts % (Manual) Lymphocytes % (Manual) Nucleated RBC % Seg Neutrophils # Man Lymphocytes # (Manual) Monocytes # (Manual) PT INR APTT D-Dimer POC ABG pH ABG pH POC ABG pO2 ABG pO2 ABG HCO3 ABG O2 Saturation ABG Base Excess ABG Hemoglobin VBG pH Oxyhemoglobin Sodium Potassium Chloride Carbon Dioxide BUN Creatinine 0.2 L Glucose 208 H POC Glucose 224 H Lactic Acid Calcium 7.7 L Phosphorus Magnesium Iron TIBC Direct Bilirubin AST ALT Alkaline Phosphatase Total Creatine Kinase CK-MB (CK-2) C-Reactive Protein Total Protein Albumin Vitamin B12 Salicylates Acetaminophen Miscellaneous Test Crossmatch 04/07/19 04/07/19 04/07/19 05:47 08:27 10:33 WBC RBC Hgb Hct MCV MCH MCHC RDW Plt Count [place] % (Auto) Lymph # Seg Neuts % (Manual) Lymphocytes % (Manual) Nucleated RBC % Seg Neutrophils # Man Lymphocytes # (Manual) Monocytes # (Manual) PT INR APTT D-Dimer POC ABG pH ABG pH POC ABG pO2 ABG pO2 ABG HCO3 ABG O2 Saturation ABG Base Excess ABG Hemoglobin VBG pH Oxyhemoglobin Sodium Potassium Chloride Carbon Dioxide BUN Creatinine Glucose POC Glucose 225 H 176 H 207 H Lactic Acid Calcium Phosphorus Magnesium Iron TIBC Direct Bilirubin AST ALT Alkaline Phosphatase Total Creatine Kinase CK-MB (CK-2) C-Reactive Protein Total Protein Albumin Vitamin B12 Salicylates Acetaminophen Miscellaneous Test Crossmatch 04/07/19 04/07/19 04/07/19 14:13 18:32 22:42 WBC RBC Hgb Hct MCV MCH MCHC RDW Plt Count [place] % (Auto) Lymph # Seg Neuts % (Manual) Lymphocytes % (Manual) Nucleated RBC % Seg Neutrophils # Man Lymphocytes # (Manual) Monocytes # (Manual) PT INR APTT D-Dimer POC ABG pH ABG pH POC ABG pO2 ABG pO2 ABG HCO3 ABG O2 Saturation ABG Base Excess ABG Hemoglobin VBG pH Oxyhemoglobin Sodium Potassium Chloride Carbon Dioxide BUN Creatinine Glucose POC Glucose 219 H 227 H 238 H Lactic Acid Calcium Phosphorus Magnesium Iron TIBC Direct Bilirubin AST ALT Alkaline Phosphatase Total Creatine Kinase CK-MB (CK-2) C-Reactive Protein Total Protein Albumin Vitamin B12 Salicylates Acetaminophen Miscellaneous Test Crossmatch 04/08/19 04/08/19 04/08/19 02:31 05:37 14:10 WBC RBC Hgb Hct MCV MCH MCHC RDW Plt Count [place] % (Auto) Lymph # Seg Neuts % (Manual) Lymphocytes % (Manual) Nucleated RBC % Seg Neutrophils # Man Lymphocytes # (Manual) Monocytes # (Manual) PT INR APTT D-Dimer POC ABG pH ABG pH POC ABG pO2 ABG pO2 ABG HCO3 ABG O2 Saturation ABG Base Excess ABG Hemoglobin VBG pH Oxyhemoglobin Sodium Potassium Chloride Carbon Dioxide BUN Creatinine Glucose POC Glucose 194 H 194 H 139 H Lactic Acid Calcium Phosphorus Magnesium Iron TIBC Direct Bilirubin AST ALT Alkaline Phosphatase Total Creatine Kinase CK-MB (CK-2) C-Reactive Protein Total Protein Albumin Vitamin B12 Salicylates Acetaminophen Miscellaneous Test Crossmatch 04/08/19 04/08/19 04/09/19 17:43 23:20 03:28 WBC RBC Hgb Hct MCV MCH MCHC RDW Plt Count [place] % (Auto) Lymph # Seg Neuts % (Manual) Lymphocytes % (Manual) Nucleated RBC % Seg Neutrophils # Man Lymphocytes # (Manual) Monocytes # (Manual) PT INR APTT D-Dimer POC ABG pH ABG pH POC ABG pO2 ABG pO2 ABG HCO3 ABG O2 Saturation ABG Base Excess ABG Hemoglobin VBG pH Oxyhemoglobin Sodium Potassium Chloride Carbon Dioxide BUN Creatinine Glucose POC Glucose 261 H 277 H 301 H Lactic Acid Calcium Phosphorus Magnesium Iron TIBC Direct Bilirubin AST ALT Alkaline Phosphatase Total Creatine Kinase CK-MB (CK-2) C-Reactive Protein Total Protein Albumin Vitamin B12 Salicylates Acetaminophen Miscellaneous Test Crossmatch 04/09/19 04/09/19 04/09/19 05:35 05:35 05:35 WBC RBC 2.78 L Hgb 9.0 L Hct 26.7 L MCV MCH MCHC RDW 17.0 H Plt Count [place] % (Auto) Lymph # Seg Neuts % (Manual) Lymphocytes % (Manual) Nucleated RBC % Seg Neutrophils # Man Lymphocytes # (Manual) Monocytes # (Manual) PT INR APTT D-Dimer POC ABG pH ABG pH POC ABG pO2 ABG pO2 ABG HCO3 ABG O2 Saturation ABG Base Excess ABG Hemoglobin VBG pH Oxyhemoglobin Sodium Potassium Chloride Carbon Dioxide 31 H BUN Creatinine 0.2 L Glucose 218 H POC Glucose 240 H Lactic Acid Calcium Phosphorus Magnesium Iron TIBC Direct Bilirubin AST ALT Alkaline Phosphatase Total Creatine Kinase CK-MB (CK-2) C-Reactive Protein Total Protein Albumin Vitamin B12 Salicylates Acetaminophen Miscellaneous Test Crossmatch 04/09/19 04/09/19 04/09/19 09:01 12:23 17:33 WBC RBC Hgb Hct MCV MCH MCHC RDW Plt Count [place] % (Auto) Lymph # Seg Neuts % (Manual) Lymphocytes % (Manual) Nucleated RBC % Seg Neutrophils # Man Lymphocytes # (Manual) Monocytes # (Manual) PT INR APTT D-Dimer POC ABG pH ABG pH POC ABG pO2 ABG pO2 ABG HCO3 ABG O2 Saturation ABG Base Excess ABG Hemoglobin VBG pH Oxyhemoglobin Sodium Potassium Chloride Carbon Dioxide BUN Creatinine Glucose POC Glucose 160 H 162 H 149 H Lactic Acid Calcium Phosphorus Magnesium Iron TIBC Direct Bilirubin AST ALT Alkaline Phosphatase Total Creatine Kinase CK-MB (CK-2) C-Reactive Protein Total Protein Albumin Vitamin B12 Salicylates Acetaminophen Miscellaneous Test Crossmatch 04/09/19 04/09/19 04/10/19 21:26 22:28 03:16 WBC RBC Hgb Hct MCV MCH MCHC RDW Plt Count [place] % (Auto) Lymph # Seg Neuts % (Manual) Lymphocytes % (Manual) Nucleated RBC % Seg Neutrophils # Man Lymphocytes # (Manual) Monocytes # (Manual) PT INR APTT D-Dimer POC ABG pH ABG pH POC ABG pO2 ABG pO2 ABG HCO3 ABG O2 Saturation ABG Base Excess ABG Hemoglobin VBG pH Oxyhemoglobin Sodium Potassium Chloride Carbon Dioxide BUN Creatinine Glucose POC Glucose 196 H 224 H 163 H Lactic Acid Calcium Phosphorus Magnesium Iron TIBC Direct Bilirubin AST ALT Alkaline Phosphatase Total Creatine Kinase CK-MB (CK-2) C-Reactive Protein Total Protein Albumin Vitamin B12 Salicylates Acetaminophen Miscellaneous Test Crossmatch 04/10/19 04/10/19 04/10/19 04:15 04:15 05:30 WBC RBC 2.88 L Hgb 9.2 L Hct 27.9 L MCV MCH MCHC RDW 17.0 H Plt Count 454 H [place] % (Auto) Lymph # Seg Neuts % (Manual) Lymphocytes % (Manual) Nucleated RBC % Seg Neutrophils # Man Lymphocytes # (Manual) Monocytes # (Manual) PT INR APTT D-Dimer POC ABG pH ABG pH POC ABG pO2 ABG pO2 ABG HCO3 ABG O2 Saturation ABG Base Excess ABG Hemoglobin VBG pH Oxyhemoglobin Sodium Potassium Chloride Carbon Dioxide 32 H BUN Creatinine 0.2 L Glucose 126 H POC Glucose 135 H Lactic Acid Calcium Phosphorus Magnesium Iron TIBC Direct Bilirubin AST ALT Alkaline Phosphatase Total Creatine Kinase CK-MB (CK-2) C-Reactive Protein Total Protein Albumin Vitamin B12 Salicylates Acetaminophen Miscellaneous Test Crossmatch 04/10/19 04/10/19 04/10/19 12:14 15:29 23:38 WBC RBC Hgb Hct MCV MCH MCHC RDW Plt Count [place] % (Auto) Lymph # Seg Neuts % (Manual) Lymphocytes % (Manual) Nucleated RBC % Seg Neutrophils # Man Lymphocytes # (Manual) Monocytes # (Manual) PT INR APTT D-Dimer POC ABG pH ABG pH POC ABG pO2 ABG pO2 ABG HCO3 ABG O2 Saturation ABG Base Excess ABG Hemoglobin VBG pH Oxyhemoglobin Sodium Potassium Chloride Carbon Dioxide BUN Creatinine Glucose POC Glucose 109 H 149 H 268 H Lactic Acid Calcium Phosphorus Magnesium Iron TIBC Direct Bilirubin AST ALT Alkaline Phosphatase Total Creatine Kinase CK-MB (CK-2) C-Reactive Protein Total Protein Albumin Vitamin B12 Salicylates Acetaminophen Miscellaneous Test Crossmatch 04/11/19 05:27 WBC RBC Hgb Hct MCV MCH MCHC RDW Plt Count [place] % (Auto) Lymph # Seg Neuts % (Manual) Lymphocytes % (Manual) Nucleated RBC % Seg Neutrophils # Man Lymphocytes # (Manual) Monocytes # (Manual) PT INR APTT D-Dimer POC ABG pH ABG pH POC ABG pO2 ABG pO2 ABG HCO3 ABG O2 Saturation ABG Base Excess ABG Hemoglobin VBG pH Oxyhemoglobin Sodium Potassium Chloride Carbon Dioxide BUN Creatinine Glucose POC Glucose 109 H Lactic Acid Calcium Phosphorus Magnesium Iron TIBC Direct Bilirubin AST ALT Alkaline Phosphatase Total Creatine Kinase CK-MB (CK-2) C-Reactive Protein Total Protein Albumin Vitamin B12 Salicylates Acetaminophen Miscellaneous Test Crossmatch Allied health notes reviewed: RT
--- NOTE | 2019-04-11 10:56 | Progress Note ---
Assessment and Plan Cultures: 03/29 BCx: no growth 03/29 sputum Cx: C albicans 03/30/2019 MRSA nasal: negative A/P: 28 yo F PMHx T1DM admitted after receiving intubation and CPR due to non- responsiveness likely secondary to DKA 1. Sepsis - potential liver abscess v/s ischemia v/s trauma. Leukocytosis, tachycardia. 2. Aspiration pneumonia - Procal greatly elevated. Continue antibiotics. Can treat for 7 days. Jenn in sputum culture not a pathogen of the respiratory tract. 3. Liver lesion - ? abscess v/s other etiology. Would need additional imaging. 4. DKA - numerous metabolic derangements, per primary/ICU team 5. T1DM 6. Head lice - s/p treatment x 3. 7. Acute encephalopathy: MRI showed anoxic brain injury. Guarded prognosis, now DNR. Recs: - Continue IV Ceftriaxone, continue metronidazole 500mg q8h - d/w Dr. Bravo regarding this patient's liver imaging findings and optimal imaging choice. Ideally, a multiphase MRI would be helpful, however patient would require a breath hold which would be difficult considering she is on the vent, next best option would be a [address]. Overall, the appearance is atypical for an abscess - if CT negative for liver abscess, will d/c abx - overall guarded prognosis Linda Norman MD [facility] Subjective Date of service: 04/11/19 Principal diagnosis: Ac Hypoxemic Resp Failure; DKA; Severe sepsis with shock; ANGELICA Interval history: Remains afebrile, unresponsive on the vent. Objective - Exam Narrative Exam: Physical Exam: Constitutional: Intubated, unresponsive Head, Ears, Nose: Normocephalic, atraumatic. External ears, nose normal Eyes: Conjunctivae/corneas clear. No icterus. No ptosis. Neck: Supple, no meningeal signs. Intubated Oral: intubated Cardiovascular: S1, S2 normal. Respiratory: Good air entry, clear to auscultation bilaterally GI: Soft, non-tender; bowel sounds normal. Musculoskeletal: No pedal edema, no cyanosis. Skin: No rash or abscess Hem/Lymphatic: No palpable cervical or supraclavicular nodes. No lymphangitis Psych: unresponsive Neurological: Intubated, unresponsive - Constitutional Vitals: Vital Signs Temp Pulse Resp BP Pulse Ox 98.1 F 110 H 14 126/82 98 04/11/19 08:00 04/11/19 09:06 04/11/19 09:06 04/11/19 09:06 04/11/19 09:06 Temperature -Last 24 Hours Temperature 98.1 F Temperature 98.8 F Temperature 98.4 F Temperature 98.4 F Temperature 98.3 F Temperature 97.4 F Temperature 97.9 F - Labs CBC & Chem 7: 04/10/19 04:15 04/10/19 04:15 Labs: Abnormal lab results 04/10/19 04/10/19 04/10/19 Range/Units 12:14 15:29 23:38 POC Glucose 109 H 149 H 268 H (70-105) 04/11/19 Range/Units 05:27 POC Glucose 109 H (70-105)
--- NOTE | 2019-04-11 11:30 | Event Note ---
Date: 04/11/19 Discussed trach/PEG request with Dr. Sanderson. I contacted the mother today and obtained consent. Will work on scheduling.
[2019-04-11] MEDS: SODIUM CHLORIDE FLUSH SYRINGE 10 ML IV SCH ×2 (13:02→21:37)
[2019-04-11] MEDS: SUBLIMAZE IV PRN (20:10)
[2019-04-11] MEDS: ENOXAPARIN SUB-Q SCH (21:37)
[2019-04-11] MEDS: LANTUS SUB-Q SCH (21:38)
--- NOTE | 2019-04-11 23:55 | Cat Scan Report ---
CT abdomen pelvis wo/w con INDICATION: Eval liver lesion - 4 phase liver protocol. TECHNIQUE: All CT scans at this location are performed using the following dose modulation technique: Automated exposure control. Helical slices were obtained through the abdomen and pelvis prior to and following the administration of intravenous contrast. 100 cc of Omnipaque 300 is administered. COMPARISON: CTA of the chest dated 04/06/2019 FINDINGS: Abdomen: There is a large low-density lesion in the dome of the liver. This measures 14 Hounsfield un its on precontrast images and 20 Hounsfield units on postcontrast images. This measures 11.4 x 6.4 x 5 cm. There is some increased density in this abnormality along the periphery superiorly and inferior ly and posteriorly. Is not a simple cyst. Does not show significant peripheral enhancement and does not fill in delayed images. There is a line ar component of decreased density in the left lobe the liver that extends from the medial aspect of t he larger collection into the left lobe to the level of nita hepatis. This is also somewhat complex appearing density. The liver is enlarged. There is a small right pleural effusion with mild dependent atelectasis. Spleen, adrenal glands, and kidneys are unremarkable. There is a large amount of stool noted in the c olon raising possibility of constipation. There is no inflammatory change. Pelvis: There is no inflammation or free air. There are no abnormal fluid collections and pelvis. IMPRESSION: 1. There is a large low-density lesion in the dome of the liver subcapsular and complex some varying density within it. There is a linear component that extends from the large lesion in the dome of the left lobe of the liver to the nita hepatis. I suspect that this represents subacute or chronic liver injury with subcapsular hematoma and laceration in the liver. Correlation with any possible trauma history is suggested. The possibility of infectious etiology or neoplastic etiology is considered in the differential diagn osis but felt to be less likely. There is possible constipation. Signer Name: Isaac Raymond MD Signed: 04/11/2019 11:51 PM Workstation Name: [id number]
[2019-04-12] MEDS: HumuLIN R SUB-Q SCH ×4 (00:40→19:49)
[2019-04-12] MEDS: FLAGYL 500 MG/100 ML 500 MG/100 ML BAG IV SCH (06:00)
[2019-04-12] MEDS: KEPPRA PO SCH ×2 (09:34→21:54)
[2019-04-12] MEDS: PEPCID PO SCH ×2 (09:34→21:54)
[2019-04-12] MEDS: ROCEPHIN/NS 1 GM/50 ML 1 GM/50 ML BAG IV SCH (09:34)
[2019-04-12] MEDS: SODIUM CHLORIDE FLUSH SYRINGE 10 ML IV SCH ×2 (09:35→21:48)
--- NOTE | 2019-04-12 09:39 | Progress Note ---
Assessment and Plan Acute hypoxemic respiratory failure, on MVS Acute toxic metabolic encephalopathy; MRI consistent with diffuse anoxic injury Diabetic ketoacidosis. Severe sepsis with shock. Possible aspiration pneumonia. History of polysubstance abuse. Leukocytosis. Elevated serum transaminases, possible shock liver. Hyponatremia related to her severe hyperglycemia. Anemia that is macrocytic. History of seizure disorder. Severe metabolic acidosis. Acute kidney injury, possibly on chronic - transfuse PRBC's prn to keep Hb >/= 7.0 g/dl - continue daily SBT assessments as tolerated - continue enteral nutrition with glucerna and adjust rate per gis scientist - continue bronchodilators with pulmonary hygiene per RT - VAP bundle addressed - continue to wean supplemental O2 to keep O2 sats > 90% - VTE prophylaxis-SCDs - Stress ulcer prophylaxis - continue accuchecks with glycemic control per SSI for target blood glucose 140-180 mg/dL - continue empiric antibiotics; de-escalate per ID rec's and based on clinical and microbiologic data - continue Keppra for seizures - continue mobility protocols / off loading for pressure ulcer prevention - Critical care bundles addressed - continue other care per attending / other consultants CONDITION: CRITICAL PROGNOSIS: GUARDED TO GRAVE CODE STATUS: FULL CODE The high probability of a clinically significant, sudden or life threatening deterioration of the [Neurology Respiratory, Cardiovascular] system(s) required my full and direct attention, intervention and personal management. The aggregate critical care time was [31] minutes. This time is in addition to time spent performing reported procedures but includes the following: [x] Data Review and interpretation [x] Patient assessment and monitoring of vital signs [x] Documentation [x] Medication orders and management Subjective Date of service: 04/12/19 Principal diagnosis: Ac Hypoxemic Resp Failure; DKA; Severe sepsis with shock; ANGELICA Interval history: Patient is seen today for: Acute Hypoxemic Resp Failure; Ac toxic metabolic encephalopathy; DKA; Severe sepsis with shock; Possible aspiration pneumonia; History of polysubstance abuse; History of seizure disorder; Acute kidney injury, possibly on chronic Seen and examined at bedside; 24hour events reviewed; nursing and respiratory care staff consulted; no adverse overnight events reported to me; resting peacefully in bed; AMS is persistent; remains off vasopressor but on MVS; no em esis or overt aspiration and no high grade fevers Vitals, labs,medications, chart reviewed. Discussed in ICU-IDT Objective Vital Signs - 12hr 04/11/19 04/11/19 04/12/19 22:00 23:00 00:00 Temperature 98.7 F Pulse Rate 97 H 102 H 121 H Pulse Rate [ 121 H From Monitor] Respiratory 12 13 17 Rate Blood Pressure 119/77 122/79 122/79 O2 Sat by Pulse 98 98 98 Oximetry 04/12/19 04/12/19 04/12/19 01:00 01:23 02:00 Temperature Pulse Rate 120 H 123 H 120 H Pulse Rate [ From Monitor] Respiratory 14 14 Rate Blood Pressure 118/72 118/72 113/71 O2 Sat by Pulse 95 94 92 Oximetry 04/12/19 04/12/19 04/12/19 03:00 04:00 04:26 Temperature 98.5 F Pulse Rate 119 H 102 H 105 H Pulse Rate [ 102 H From Monitor] Respiratory 13 14 Rate Blood Pressure 104/64 111/71 111/71 O2 Sat by Pulse 90 95 99 Oximetry 04/12/19 04/12/19 04/12/19 05:00 06:00 07:00 Temperature Pulse Rate 114 H 111 H 115 H Pulse Rate [ From Monitor] Respiratory 18 13 13 Rate Blood Pressure 111/71 128/89 138/95 O2 Sat by Pulse 100 93 98 Oximetry 04/12/19 04/12/19 04/12/19 07:22 07:36 08:00 Temperature 97.8 F Pulse Rate 112 H 119 H 111 H Pulse Rate [ 106 H From Monitor] Respiratory 20 14 Rate Blood Pressure 138/95 108/69 115/82 O2 Sat by Pulse 99 97 99 Oximetry 04/12/19 09:00 Temperature Pulse Rate 102 H Pulse Rate [ From Monitor] Respiratory 18 Rate Blood Pressure 108/69 O2 Sat by Pulse 94 Oximetry Constitutional: no acute distress, other (young CF normocephalic and atraumatic on MVS) Eyes: non-icteric ENT: oropharynx moist, other (ETT 22-23 cm Jessi) Neck: supple, no lymphadenopathy, no JVD Effort: mildly labored Ascultation: Bilateral: rhonchi Percussion: Bilateral: not dull Cardiovascular: regular rate and rhythm, other (sinus tachycardia) Gastrointestinal: normoactive bowel sounds, soft, non-tender Integumentary: erythema (noted on upper extremity) Extremities: no cyanosis, pink and warm, pulses normal, no ischemia or petechiae, edema (trace to 1+) Neurologic: unable to assess (remains unresponsive, opens eyes on suctioning, not obeying commands) Psychiatric: other (unable to assess) CBC and BMP: 04/10/19 04:15 04/10/19 04:15 ABG, PT/INR, D-dimer: ABG POC ABG pH 7.374 (7.35-7.45) 04/04/19 03:46 ABG pH 7.396 pH Units (7.350-7.450) 04/03/19 05:35 POC ABG pCO2 36.2 (35-45) 04/04/19 03:46 ABG pCO2 32.2 mm Hg 04/03/19 05:35 POC ABG pO2 96 (80-105) 04/04/19 03:46 ABG pO2 97.7 mm Hg (80.0-90.0) H 04/03/19 05:35 POC ABG HCO3 21.2 (22-26 mml/L) 04/04/19 03:46 POC ABG Total CO2 22 (23-27mmol/L) 04/04/19 03:46 POC ABG O2 Sat 97 04/04/19 03:46 ABG O2 Saturation 97.6 % (95.0-99.0) 04/03/19 05:35 PT/INR, D-dimer PT 13.9 Sec. (12.2-14.9) 04/01/19 17:14 INR 1.10 (0.87-1.13) 04/01/19 17:14 4526.86 ng/mlDDU (0-234) H 04/06/19 00:06 Abnormal lab findings: Abnormal Labs 03/29/19 03/29/19 03/29/19 19:11 19:20 19:20 WBC 26.7 H RBC 2.52 L Hgb 8.1 L Hct MCV 148 H MCH MCHC 22 L RDW 18.5 H Plt Count [place] % (Auto) Lymph # Seg Neuts % (Manual) 82.0 H Lymphocytes % (Manual) 7.0 L Nucleated RBC % Seg Neutrophils # Man 21.9 H Lymphocytes # (Manual) Monocytes # (Manual) 1.9 H PT 21.8 H INR 1.95 H APTT 74.5 H* D-Dimer POC ABG pH ABG pH POC ABG pO2 ABG pO2 ABG HCO3 ABG O2 Saturation ABG Base Excess ABG Hemoglobin VBG pH Oxyhemoglobin Sodium Potassium Chloride Carbon Dioxide BUN Creatinine Glucose POC Glucose > 500 H Lactic Acid Calcium Phosphorus Magnesium Iron TIBC Direct Bilirubin AST ALT Alkaline Phosphatase Total Creatine Kinase CK-MB (CK-2) C-Reactive Protein Total Protein Albumin Vitamin B12 Salicylates Acetaminophen Miscellaneous Test Crossmatch 03/29/19 03/29/19 03/29/19 19:20 19:47 20:59 WBC RBC Hgb Hct MCV MCH MCHC RDW Plt Count [place] % (Auto) Lymph # Seg Neuts % (Manual) Lymphocytes % (Manual) Nucleated RBC % Seg Neutrophils # Man Lymphocytes # (Manual) Monocytes # (Manual) PT INR APTT D-Dimer POC ABG pH 6.892 L ABG pH POC ABG pO2 236 H ABG pO2 ABG HCO3 ABG O2 Saturation ABG Base Excess ABG Hemoglobin VBG pH 6.800 L* Oxyhemoglobin Sodium 118 L* Potassium 9.0 H* Chloride 64.5 L Carbon Dioxide 7 L* BUN 53 H Creatinine 2.1 H Glucose 2196 H* POC Glucose Lactic Acid Calcium 12.4 H* Phosphorus Magnesium Iron TIBC Direct Bilirubin AST 3900 H ALT 1034 H Alkaline Phosphatase 316 H Total Creatine Kinase CK-MB (CK-2) C-Reactive Protein Total Protein 5.1 L Albumin 2.8 L Vitamin B12 Salicylates Acetaminophen Miscellaneous Test Crossmatch 03/29/19 03/29/19 03/29/19 22:45 22:45 22:45 WBC RBC Hgb Hct MCV MCH MCHC RDW Plt Count [place] % (Auto) Lymph # Seg Neuts % (Manual) Lymphocytes % (Manual) Nucleated RBC % Seg Neutrophils # Man Lymphocytes # (Manual) Monocytes # (Manual) PT INR APTT D-Dimer POC ABG pH ABG pH POC ABG pO2 ABG pO2 ABG HCO3 ABG O2 Saturation ABG Base Excess ABG Hemoglobin VBG pH Oxyhemoglobin Sodium 132 L D Potassium 7.0 H* Chloride 84.3 L Carbon Dioxide 3 L* BUN 48 H Creatinine 1.8 H Glucose 1779 H* POC Glucose Lactic Acid Calcium Phosphorus 21.70 H Magnesium 4.70 H Iron TIBC Direct Bilirubin AST ALT Alkaline Phosphatase Total Creatine Kinase 363 H CK-MB (CK-2) C-Reactive Protein Total Protein Albumin Vitamin B12 Salicylates Acetaminophen Miscellaneous Test Crossmatch 03/29/19 03/29/19 03/30/19 Unknown Unknown 00:11 WBC RBC Hgb Hct MCV MCH MCHC RDW Plt Count [place] % (Auto) Lymph # Seg Neuts % (Manual) Lymphocytes % (Manual) Nucleated RBC % Seg Neutrophils # Man Lymphocytes # (Manual) Monocytes # (Manual) PT INR APTT D-Dimer POC ABG pH ABG pH POC ABG pO2 ABG pO2 ABG HCO3 ABG O2 Saturation ABG Base Excess ABG Hemoglobin VBG pH Oxyhemoglobin Sodium 122 L Potassium 7.9 H* 6.4 H* Chloride 75.3 L 89.7 L Carbon Dioxide 3 L* 12 L D BUN 52 H 46 H Creatinine 2.0 H 1.7 H Glucose 2043 H* 1591 H* POC Glucose Lactic Acid Calcium 7.8 L Phosphorus 19.30 H Magnesium 3.90 H Iron TIBC Direct Bilirubin AST ALT Alkaline Phosphatase Total Creatine Kinase CK-MB (CK-2) C-Reactive Protein Total Protein Albumin Vitamin B12 Salicylates Acetaminophen Miscellaneous Test Crossmatch 03/30/19 03/30/19 03/30/19 00:11 02:14 02:14 WBC RBC Hgb Hct MCV MCH MCHC RDW Plt Count [place] % (Auto) Lymph # Seg Neuts % (Manual) Lymphocytes % (Manual) Nucleated RBC % Seg Neutrophils # Man Lymphocytes # (Manual) Monocytes # (Manual) PT INR APTT D-Dimer POC ABG pH ABG pH POC ABG pO2 ABG pO2 ABG HCO3 ABG O2 Saturation ABG Base Excess ABG Hemoglobin VBG pH Oxyhemoglobin Sodium Potassium Chloride Carbon Dioxide 9 L* BUN 45 H Creatinine 1.7 H Glucose 1155 H* POC Glucose Lactic Acid Calcium 7.9 L Phosphorus 10.90 H D 5.30 H D Magnesium 3.10 H 2.90 H Iron TIBC Direct Bilirubin AST ALT Alkaline Phosphatase Total Creatine Kinase CK-MB (CK-2) C-Reactive Protein Total Protein Albumin Vitamin B12 Salicylates Acetaminophen Miscellaneous Test Crossmatch 03/30/19 03/30/19 03/30/19 03:15 03:30 04:23 WBC 18.0 H RBC 2.31 L Hgb 7.3 L Hct 23.8 L D MCV 103 H MCH MCHC RDW 17.1 H Plt Count [place] % (Auto) Lymph # Seg Neuts % (Manual) 79.0 H Lymphocytes % (Manual) Nucleated RBC % Seg Neutrophils # Man 14.2 H Lymphocytes # (Manual) Monocytes # (Manual) PT INR APTT D-Dimer POC ABG pH 7.251 L ABG pH POC ABG pO2 156 H ABG pO2 ABG HCO3 ABG O2 Saturation ABG Base Excess ABG Hemoglobin VBG pH Oxyhemoglobin Sodium Potassium Chloride Carbon Dioxide BUN Creatinine Glucose POC Glucose Lactic Acid Calcium Phosphorus Magnesium Iron TIBC Direct Bilirubin AST ALT Alkaline Phosphatase Total Creatine Kinase CK-MB (CK-2) C-Reactive Protein Total Protein Albumin Vitamin B12 Salicylates Acetaminophen Miscellaneous Test Crossmatch See Detail 03/30/19 03/30/19 03/30/19 05:26 05:26 10:38 WBC RBC Hgb Hct MCV MCH MCHC RDW Plt Count [place] % (Auto) Lymph # Seg Neuts % (Manual) Lymphocytes % (Manual) Nucleated RBC % Seg Neutrophils # Man Lymphocytes # (Manual) Monocytes # (Manual) PT INR APTT D-Dimer POC ABG pH ABG pH POC ABG pO2 ABG pO2 ABG HCO3 ABG O2 Saturation ABG Base Excess ABG Hemoglobin VBG pH Oxyhemoglobin Sodium 158 H D Potassium 3.5 L Chloride 109.3 H Carbon Dioxide 19 L D BUN 40 H Creatinine 1.5 H Glucose 760 H* POC Glucose 380 H Lactic Acid Calcium 7.3 L Phosphorus Magnesium 2.60 H Iron TIBC Direct Bilirubin AST 92984 H ALT 2156 H Alkaline Phosphatase 271 H Total Creatine Kinase 2465 H CK-MB (CK-2) 52.7 H C-Reactive Protein Total Protein 4.5 L Albumin 2.4 L Vitamin B12 Salicylates Acetaminophen Miscellaneous Test Crossmatch 03/30/19 03/30/19 03/30/19 11:08 12:25 12:57 WBC RBC Hgb Hct MCV MCH MCHC RDW Plt Count [place] % (Auto) Lymph # Seg Neuts % (Manual) Lymphocytes % (Manual) Nucleated RBC % Seg Neutrophils # Man Lymphocytes # (Manual) Monocytes # (Manual) PT INR APTT D-Dimer POC ABG pH ABG pH POC ABG pO2 ABG pO2 ABG HCO3 ABG O2 Saturation ABG Base Excess ABG Hemoglobin VBG pH Oxyhemoglobin Sodium 156 H Potassium 3.2 L Chloride 116.4 H Carbon Dioxide 21 L BUN 37 H Creatinine Glucose 162 H POC Glucose 263 H 196 H Lactic Acid Calcium 7.2 L Phosphorus Magnesium Iron TIBC Direct Bilirubin AST ALT Alkaline Phosphatase Total Creatine Kinase CK-MB (CK-2) C-Reactive Protein Total Protein Albumin Vitamin B12 Salicylates Acetaminophen Miscellaneous Test Crossmatch 03/30/19 03/30/19 03/30/19 12:57 12:57 12:57 WBC RBC Hgb Hct MCV MCH MCHC RDW Plt Count [place] % (Auto) Lymph # Seg Neuts % (Manual) Lymphocytes % (Manual) Nucleated RBC % Seg Neutrophils # Man Lymphocytes # (Manual) Monocytes # (Manual) PT 21.0 H INR 1.86 H APTT D-Dimer POC ABG pH ABG pH POC ABG pO2 ABG pO2 ABG HCO3 ABG O2 Saturation ABG Base Excess ABG Hemoglobin VBG pH Oxyhemoglobin Sodium Potassium Chloride Carbon Dioxide BUN Creatinine Glucose POC Glucose Lactic Acid 9.00 H* Calcium Phosphorus Magnesium Iron TIBC Direct Bilirubin AST ALT Alkaline Phosphatase Total Creatine Kinase CK-MB (CK-2) C-Reactive Protein 2.40 H Total Protein Albumin Vitamin B12 Salicylates Acetaminophen Miscellaneous Test Crossmatch 03/30/19 03/30/19 03/30/19 13:23 14:00 14:47 WBC RBC Hgb Hct MCV MCH MCHC RDW Plt Count [place] % (Auto) Lymph # Seg Neuts % (Manual) Lymphocytes % (Manual) Nucleated RBC % Seg Neutrophils # Man Lymphocytes # (Manual) Monocytes # (Manual) PT INR APTT D-Dimer POC ABG pH ABG pH POC ABG pO2 ABG pO2 ABG HCO3 ABG O2 Saturation ABG Base Excess ABG Hemoglobin VBG pH Oxyhemoglobin Sodium Potassium Chloride Carbon Dioxide BUN Creatinine Glucose POC Glucose 176 H 245 H Lactic Acid Calcium Phosphorus Magnesium Iron TIBC Direct Bilirubin AST ALT Alkaline Phosphatase Total Creatine Kinase CK-MB (CK-2) C-Reactive Protein Total Protein Albumin Vitamin B12 Salicylates Acetaminophen Miscellaneous Test Flexitest 1 H Crossmatch 03/30/19 03/30/19 03/30/19 16:11 17:11 17:46 WBC RBC Hgb Hct MCV MCH MCHC RDW Plt Count [place] % (Auto) Lymph # Seg Neuts % (Manual) Lymphocytes % (Manual) Nucleated RBC % Seg Neutrophils # Man Lymphocytes # (Manual) Monocytes # (Manual) PT INR APTT D-Dimer POC ABG pH ABG pH POC ABG pO2 ABG pO2 ABG HCO3 ABG O2 Saturation ABG Base Excess ABG Hemoglobin VBG pH Oxyhemoglobin Sodium Potassium Chloride Carbon Dioxide BUN Creatinine Glucose POC Glucose 181 H 167 H 125 H Lactic Acid Calcium Phosphorus Magnesium Iron TIBC Direct Bilirubin AST ALT Alkaline Phosphatase Total Creatine Kinase CK-MB (CK-2) C-Reactive Protein Total Protein Albumin Vitamin B12 Salicylates Acetaminophen Miscellaneous Test Crossmatch 03/30/19 03/30/19 03/30/19 18:59 21:31 22:19 WBC RBC Hgb Hct MCV MCH MCHC RDW Plt Count [place] % (Auto) Lymph # Seg Neuts % (Manual) Lymphocytes % (Manual) Nucleated RBC % Seg Neutrophils # Man Lymphocytes # (Manual) Monocytes # (Manual) PT INR APTT D-Dimer POC ABG pH ABG pH POC ABG pO2 ABG pO2 ABG HCO3 ABG O2 Saturation ABG Base Excess ABG Hemoglobin VBG pH Oxyhemoglobin Sodium Potassium Chloride Carbon Dioxide BUN Creatinine Glucose POC Glucose 140 H 166 H 115 H Lactic Acid Calcium Phosphorus Magnesium Iron TIBC Direct Bilirubin AST ALT Alkaline Phosphatase Total Creatine Kinase CK-MB (CK-2) C-Reactive Protein Total Protein Albumin Vitamin B12 Salicylates Acetaminophen Miscellaneous Test Crossmatch 03/30/19 03/30/19 03/30/19 23:13 Unknown Unknown WBC RBC Hgb Hct MCV MCH MCHC RDW Plt Count [place] % (Auto) Lymph # Seg Neuts % (Manual) Lymphocytes % (Manual) Nucleated RBC % Seg Neutrophils # Man Lymphocytes # (Manual) Monocytes # (Manual) PT INR APTT D-Dimer POC ABG pH ABG pH POC ABG pO2 ABG pO2 47.8 L ABG HCO3 18.8 L ABG O2 Saturation 83.8 L ABG Base Excess -5.4 L ABG Hemoglobin 6.8 L VBG pH Oxyhemoglobin 81.8 L Sodium 157 H Potassium 3.3 L Chloride 117.9 H Carbon Dioxide 20 L BUN 36 H Creatinine Glucose 150 H POC Glucose 112 H Lactic Acid Calcium 7.2 L Phosphorus Magnesium Iron TIBC Direct Bilirubin AST ALT Alkaline Phosphatase Total Creatine Kinase CK-MB (CK-2) C-Reactive Protein Total Protein Albumin Vitamin B12 Salicylates Acetaminophen Miscellaneous Test Crossmatch 03/30/19 03/30/19 03/31/19 Unknown Unknown 00:03 WBC RBC Hgb Hct MCV MCH MCHC RDW Plt Count [place] % (Auto) Lymph # Seg Neuts % (Manual) Lymphocytes % (Manual) Nucleated RBC % Seg Neutrophils # Man Lymphocytes # (Manual) Monocytes # (Manual) PT INR APTT D-Dimer POC ABG pH ABG pH POC ABG pO2 ABG pO2 ABG HCO3 ABG O2 Saturation ABG Base Excess ABG Hemoglobin VBG pH Oxyhemoglobin Sodium Potassium Chloride Carbon Dioxide BUN Creatinine Glucose POC Glucose 188 H Lactic Acid Calcium Phosphorus Magnesium Iron TIBC Direct Bilirubin AST ALT Alkaline Phosphatase Total Creatine Kinase CK-MB (CK-2) C-Reactive Protein Total Protein Albumin Vitamin B12 Salicylates 0.8 L Acetaminophen < 5.0 L Miscellaneous Test Crossmatch 03/31/19 03/31/19 03/31/19 01:18 03:07 03:50 WBC RBC Hgb Hct MCV MCH MCHC RDW Plt Count [place] % (Auto) Lymph # Seg Neuts % (Manual) Lymphocytes % (Manual) Nucleated RBC % Seg Neutrophils # Man Lymphocytes # (Manual) Monocytes # (Manual) PT INR APTT D-Dimer POC ABG pH ABG pH 7.525 H POC ABG pO2 ABG pO2 178.0 H ABG HCO3 19.5 L ABG O2 Saturation 99.2 H ABG Base Excess -3.1 L ABG Hemoglobin 5.8 L VBG pH Oxyhemoglobin Sodium Potassium Chloride Carbon Dioxide BUN Creatinine Glucose POC Glucose 114 H 107 H Lactic Acid Calcium Phosphorus Magnesium Iron TIBC Direct Bilirubin AST ALT Alkaline Phosphatase Total Creatine Kinase CK-MB (CK-2) C-Reactive Protein Total Protein Albumin Vitamin B12 Salicylates Acetaminophen Miscellaneous Test Crossmatch 03/31/19 03/31/19 03/31/19 03:51 03:51 04:05 WBC RBC 1.89 L Hgb 6.1 L Hct 18.2 L* MCV MCH MCHC RDW 17.7 H Plt Count 89 L [place] % (Auto) Lymph # Seg Neuts % (Manual) 86.0 H Lymphocytes % (Manual) 10.0 L Nucleated RBC % 1.0 H Seg Neutrophils # Man Lymphocytes # (Manual) 0.7 L Monocytes # (Manual) PT INR APTT D-Dimer POC ABG pH ABG pH POC ABG pO2 ABG pO2 ABG HCO3 ABG O2 Saturation ABG Base Excess ABG Hemoglobin VBG pH Oxyhemoglobin Sodium 151 H Potassium 3.2 L Chloride 119.4 H Carbon Dioxide 17 L BUN 35 H Creatinine Glucose 139 H POC Glucose 153 H Lactic Acid Calcium 7.1 L Phosphorus Magnesium Iron TIBC Direct Bilirubin AST ALT Alkaline Phosphatase Total Creatine Kinase CK-MB (CK-2) C-Reactive Protein Total Protein Albumin Vitamin B12 Salicylates Acetaminophen Miscellaneous Test Crossmatch 03/31/19 03/31/19 03/31/19 05:05 05:35 06:23 WBC RBC Hgb Hct MCV MCH MCHC RDW Plt Count [place] % (Auto) Lymph # Seg Neuts % (Manual) Lymphocytes % (Manual) Nucleated RBC % Seg Neutrophils # Man Lymphocytes # (Manual) Monocytes # (Manual) PT INR APTT D-Dimer POC ABG pH ABG pH POC ABG pO2 ABG pO2 ABG HCO3 ABG O2 Saturation ABG Base Excess ABG Hemoglobin VBG pH Oxyhemoglobin Sodium Potassium Chloride Carbon Dioxide BUN Creatinine Glucose POC Glucose 176 H 133 H Lactic Acid 3.20 H* Calcium Phosphorus Magnesium Iron TIBC Direct Bilirubin AST ALT Alkaline Phosphatase Total Creatine Kinase CK-MB (CK-2) C-Reactive Protein Total Protein Albumin Vitamin B12 Salicylates Acetaminophen Miscellaneous Test Crossmatch 03/31/19 03/31/19 03/31/19 07:50 07:51 08:20 WBC RBC Hgb Hct MCV MCH MCHC RDW Plt Count [place] % (Auto) Lymph # Seg Neuts % (Manual) Lymphocytes % (Manual) Nucleated RBC % Seg Neutrophils # Man Lymphocytes # (Manual) Monocytes # (Manual) PT INR APTT D-Dimer POC ABG pH ABG pH POC ABG pO2 ABG pO2 ABG HCO3 ABG O2 Saturation ABG Base Excess ABG Hemoglobin VBG pH Oxyhemoglobin Sodium Potassium Chloride Carbon Dioxide BUN Creatinine Glucose POC Glucose 135 H Lactic Acid 3.30 H* Calcium Phosphorus Magnesium Iron 26 L TIBC 193 L Direct Bilirubin AST ALT Alkaline Phosphatase Total Creatine Kinase CK-MB (CK-2) C-Reactive Protein Total Protein Albumin Vitamin B12 Salicylates Acetaminophen Miscellaneous Test Crossmatch 03/31/19 03/31/19 03/31/19 08:20 08:20 09:06 WBC RBC Hgb Hct MCV MCH MCHC RDW Plt Count [place] % (Auto) Lymph # Seg Neuts % (Manual) Lymphocytes % (Manual) Nucleated RBC % Seg Neutrophils # Man Lymphocytes # (Manual) Monocytes # (Manual) PT INR APTT D-Dimer POC ABG pH ABG pH POC ABG pO2 ABG pO2 ABG HCO3 ABG O2 Saturation ABG Base Excess ABG Hemoglobin VBG pH Oxyhemoglobin Sodium 153 H Potassium 3.0 L Chloride 118.9 H Carbon Dioxide 18 L BUN 37 H Creatinine Glucose 132 H POC Glucose 145 H Lactic Acid Calcium 7.1 L Phosphorus Magnesium Iron TIBC Direct Bilirubin AST ALT Alkaline Phosphatase Total Creatine Kinase CK-MB (CK-2) C-Reactive Protein Total Protein Albumin Vitamin B12 > 2000 H Salicylates Acetaminophen Miscellaneous Test Crossmatch 03/31/19 03/31/19 03/31/19 10:47 11:49 13:04 WBC RBC Hgb Hct MCV MCH MCHC RDW Plt Count [place] % (Auto) Lymph # Seg Neuts % (Manual) Lymphocytes % (Manual) Nucleated RBC % Seg Neutrophils # Man Lymphocytes # (Manual) Monocytes # (Manual) PT INR APTT D-Dimer POC ABG pH ABG pH POC ABG pO2 ABG pO2 ABG HCO3 ABG O2 Saturation ABG Base Excess ABG Hemoglobin VBG pH Oxyhemoglobin Sodium Potassium Chloride Carbon Dioxide BUN Creatinine Glucose POC Glucose 153 H 174 H 214 H Lactic Acid Calcium Phosphorus Magnesium Iron TIBC Direct Bilirubin AST ALT Alkaline Phosphatase Total Creatine Kinase CK-MB (CK-2) C-Reactive Protein Total Protein Albumin Vitamin B12 Salicylates Acetaminophen Miscellaneous Test Crossmatch 03/31/19 03/31/19 03/31/19 13:42 15:08 16:08 WBC RBC Hgb Hct MCV MCH MCHC RDW Plt Count [place] % (Auto) Lymph # Seg Neuts % (Manual) Lymphocytes % (Manual) Nucleated RBC % Seg Neutrophils # Man Lymphocytes # (Manual) Monocytes # (Manual) PT INR APTT D-Dimer POC ABG pH ABG pH POC ABG pO2 ABG pO2 ABG HCO3 ABG O2 Saturation ABG Base Excess ABG Hemoglobin VBG pH Oxyhemoglobin Sodium Potassium Chloride Carbon Dioxide BUN Creatinine Glucose POC Glucose 186 H 136 H 150 H Lactic Acid Calcium Phosphorus Magnesium Iron TIBC Direct Bilirubin AST ALT Alkaline Phosphatase Total Creatine Kinase CK-MB (CK-2) C-Reactive Protein Total Protein Albumin Vitamin B12 Salicylates Acetaminophen Miscellaneous Test Crossmatch 03/31/19 03/31/19 03/31/19 17:11 17:30 17:30 WBC RBC Hgb 7.7 L Hct 23.0 L MCV MCH MCHC RDW Plt Count [place] % (Auto) Lymph # Seg Neuts % (Manual) Lymphocytes % (Manual) Nucleated RBC % Seg Neutrophils # Man Lymphocytes # (Manual) Monocytes # (Manual) PT INR APTT D-Dimer POC ABG pH ABG pH POC ABG pO2 ABG pO2 ABG HCO3 ABG O2 Saturation ABG Base Excess ABG Hemoglobin VBG pH Oxyhemoglobin Sodium 153 H Potassium 3.5 L Chloride 119.3 H Carbon Dioxide 20 L BUN 34 H Creatinine Glucose 162 H POC Glucose 140 H Lactic Acid Calcium 7.6 L Phosphorus Magnesium Iron TIBC Direct Bilirubin AST ALT Alkaline Phosphatase Total Creatine Kinase CK-MB (CK-2) C-Reactive Protein Total Protein Albumin Vitamin B12 Salicylates Acetaminophen Miscellaneous Test Crossmatch 03/31/19 03/31/19 03/31/19 17:59 18:58 20:28 WBC RBC Hgb Hct MCV MCH MCHC RDW Plt Count [place] % (Auto) Lymph # Seg Neuts % (Manual) Lymphocytes % (Manual) Nucleated RBC % Seg Neutrophils # Man Lymphocytes # (Manual) Monocytes # (Manual) PT INR APTT D-Dimer POC ABG pH ABG pH POC ABG pO2 ABG pO2 ABG HCO3 ABG O2 Saturation ABG Base Excess ABG Hemoglobin VBG pH Oxyhemoglobin Sodium Potassium Chloride Carbon Dioxide BUN Creatinine Glucose POC Glucose 156 H 152 H 138 H Lactic Acid Calcium Phosphorus Magnesium Iron TIBC Direct Bilirubin AST ALT Alkaline Phosphatase Total Creatine Kinase CK-MB (CK-2) C-Reactive Protein Total Protein Albumin Vitamin B12 Salicylates Acetaminophen Miscellaneous Test Crossmatch 03/31/19 03/31/19 03/31/19 21:09 22:15 23:10 WBC RBC Hgb Hct MCV MCH MCHC RDW Plt Count [place] % (Auto) Lymph # Seg Neuts % (Manual) Lymphocytes % (Manual) Nucleated RBC % Seg Neutrophils # Man Lymphocytes # (Manual) Monocytes # (Manual) PT INR APTT D-Dimer POC ABG pH ABG pH POC ABG pO2 ABG pO2 ABG HCO3 ABG O2 Saturation ABG Base Excess ABG Hemoglobin VBG pH Oxyhemoglobin Sodium Potassium Chloride Carbon Dioxide BUN Creatinine Glucose POC Glucose 136 H 137 H 148 H Lactic Acid Calcium Phosphorus Magnesium Iron TIBC Direct Bilirubin AST ALT Alkaline Phosphatase Total Creatine Kinase CK-MB (CK-2) C-Reactive Protein Total Protein Albumin Vitamin B12 Salicylates Acetaminophen Miscellaneous Test Crossmatch 04/01/19 04/01/19 04/01/19 00:05 01:17 02:11 WBC RBC Hgb Hct MCV MCH MCHC RDW Plt Count [place] % (Auto) Lymph # Seg Neuts % (Manual) Lymphocytes % (Manual) Nucleated RBC % Seg Neutrophils # Man Lymphocytes # (Manual) Monocytes # (Manual) PT INR APTT D-Dimer POC ABG pH ABG pH POC ABG pO2 ABG pO2 ABG HCO3 ABG O2 Saturation ABG Base Excess ABG Hemoglobin VBG pH Oxyhemoglobin Sodium Potassium Chloride Carbon Dioxide BUN Creatinine Glucose POC Glucose 143 H 151 H 155 H Lactic Acid Calcium Phosphorus Magnesium Iron TIBC Direct Bilirubin AST ALT Alkaline Phosphatase Total Creatine Kinase CK-MB (CK-2) C-Reactive Protein Total Protein Albumin Vitamin B12 Salicylates Acetaminophen Miscellaneous Test Crossmatch 04/01/19 04/01/19 04/01/19 03:12 04:03 04:16 WBC RBC Hgb Hct MCV MCH MCHC RDW Plt Count [place] % (Auto) Lymph # Seg Neuts % (Manual) Lymphocytes % (Manual) Nucleated RBC % Seg Neutrophils # Man Lymphocytes # (Manual) Monocytes # (Manual) PT INR APTT D-Dimer POC ABG pH ABG pH POC ABG pO2 ABG pO2 ABG HCO3 ABG O2 Saturation ABG Base Excess ABG Hemoglobin VBG pH Oxyhemoglobin Sodium Potassium Chloride Carbon Dioxide BUN Creatinine Glucose POC Glucose 140 H 143 H 142 H Lactic Acid Calcium Phosphorus Magnesium Iron TIBC Direct Bilirubin AST ALT Alkaline Phosphatase Total Creatine Kinase CK-MB (CK-2) C-Reactive Protein Total Protein Albumin Vitamin B12 Salicylates Acetaminophen Miscellaneous Test Crossmatch 04/01/19 04/01/19 04/01/19 05:01 05:01 05:08 WBC RBC 2.05 L Hgb 6.8 L Hct 20.5 L MCV 100 H MCH 33 H MCHC RDW 17.7 H Plt Count 53 L [place] % (Auto) Lymph # Seg Neuts % (Manual) 71.0 H Lymphocytes % (Manual) Nucleated RBC % Seg Neutrophils # Man Lymphocytes # (Manual) Monocytes # (Manual) PT INR APTT D-Dimer POC ABG pH ABG pH POC ABG pO2 ABG pO2 ABG HCO3 ABG O2 Saturation ABG Base Excess ABG Hemoglobin VBG pH Oxyhemoglobin Sodium Potassium Chloride Carbon Dioxide BUN Creatinine Glucose POC Glucose 119 H Lactic Acid Calcium Phosphorus Magnesium Iron TIBC Direct Bilirubin 0.3 H AST 4601 H ALT 1542 H Alkaline Phosphatase 185 H Total Creatine Kinase CK-MB (CK-2) C-Reactive Protein Total Protein 3.8 L Albumin 1.6 L Vitamin B12 Salicylates Acetaminophen Miscellaneous Test Crossmatch 04/01/19 04/01/19 04/01/19 05:23 06:37 08:15 WBC RBC Hgb Hct MCV MCH MCHC RDW Plt Count [place] % (Auto) Lymph # Seg Neuts % (Manual) Lymphocytes % (Manual) Nucleated RBC % Seg Neutrophils # Man Lymphocytes # (Manual) Monocytes # (Manual) PT INR APTT D-Dimer POC ABG pH ABG pH POC ABG pO2 ABG pO2 ABG HCO3 ABG O2 Saturation ABG Base Excess ABG Hemoglobin VBG pH Oxyhemoglobin Sodium Potassium Chloride Carbon Dioxide BUN Creatinine Glucose POC Glucose 115 H 124 H 138 H Lactic Acid Calcium Phosphorus Magnesium Iron TIBC Direct Bilirubin AST ALT Alkaline Phosphatase Total Creatine Kinase CK-MB (CK-2) C-Reactive Protein Total Protein Albumin Vitamin B12 Salicylates Acetaminophen Miscellaneous Test Crossmatch 04/01/19 04/01/19 04/01/19 09:50 10:10 10:31 WBC RBC Hgb 6.5 L Hct 19.2 L* MCV MCH MCHC RDW Plt Count [place] % (Auto) Lymph # Seg Neuts % (Manual) Lymphocytes % (Manual) Nucleated RBC % Seg Neutrophils # Man Lymphocytes # (Manual) Monocytes # (Manual) PT INR APTT D-Dimer POC ABG pH ABG pH POC ABG pO2 ABG pO2 ABG HCO3 ABG O2 Saturation ABG Base Excess ABG Hemoglobin VBG pH Oxyhemoglobin Sodium 149 H Potassium 3.5 L Chloride 119.9 H Carbon Dioxide 21 L BUN 33 H Creatinine 0.5 L Glucose 142 H POC Glucose 185 H Lactic Acid Calcium 7.3 L Phosphorus Magnesium Iron TIBC Direct Bilirubin AST 3686 H ALT 1440 H Alkaline Phosphatase 185 H Total Creatine Kinase CK-MB (CK-2) C-Reactive Protein Total Protein 3.7 L Albumin 1.8 L Vitamin B12 Salicylates Acetaminophen Miscellaneous Test Crossmatch 04/01/19 04/01/19 04/01/19 11:35 13:05 14:35 WBC RBC Hgb Hct MCV MCH MCHC RDW Plt Count [place] % (Auto) Lymph # Seg Neuts % (Manual) Lymphocytes % (Manual) Nucleated RBC % Seg Neutrophils # Man Lymphocytes # (Manual) Monocytes # (Manual) PT INR APTT D-Dimer POC ABG pH ABG pH POC ABG pO2 ABG pO2 ABG HCO3 ABG O2 Saturation ABG Base Excess ABG Hemoglobin VBG pH Oxyhemoglobin Sodium Potassium Chloride Carbon Dioxide BUN Creatinine Glucose POC Glucose 201 H 169 H 134 H Lactic Acid Calcium Phosphorus Magnesium Iron TIBC Direct Bilirubin AST ALT Alkaline Phosphatase Total Creatine Kinase CK-MB (CK-2) C-Reactive Protein Total Protein Albumin Vitamin B12 Salicylates Acetaminophen Miscellaneous Test Crossmatch 04/01/19 04/01/19 04/01/19 17:13 17:14 18:30 WBC RBC Hgb Hct MCV MCH MCHC RDW Plt Count [place] % (Auto) Lymph # Seg Neuts % (Manual) Lymphocytes % (Manual) Nucleated RBC % Seg Neutrophils # Man Lymphocytes # (Manual) Monocytes # (Manual) PT INR APTT D-Dimer 5203.68 H POC ABG pH ABG pH POC ABG pO2 ABG pO2 ABG HCO3 ABG O2 Saturation ABG Base Excess ABG Hemoglobin VBG pH Oxyhemoglobin Sodium Potassium Chloride Carbon Dioxide BUN Creatinine Glucose POC Glucose 69 L 128 H Lactic Acid Calcium Phosphorus Magnesium Iron TIBC Direct Bilirubin AST ALT Alkaline Phosphatase Total Creatine Kinase CK-MB (CK-2) C-Reactive Protein Total Protein Albumin Vitamin B12 Salicylates Acetaminophen Miscellaneous Test Crossmatch 04/01/19 04/01/19 04/02/19 22:50 Unknown 03:40 WBC RBC Hgb Hct MCV MCH MCHC RDW Plt Count [place] % (Auto) Lymph # Seg Neuts % (Manual) Lymphocytes % (Manual) Nucleated RBC % Seg Neutrophils # Man Lymphocytes # (Manual) Monocytes # (Manual) PT INR APTT D-Dimer POC ABG pH ABG pH POC ABG pO2 ABG pO2 78.3 L 142.8 H ABG HCO3 15.5 L ABG O2 Saturation ABG Base Excess -3.5 L -8.2 L ABG Hemoglobin 6.8 L 8.2 L VBG pH Oxyhemoglobin 94.3 L Sodium Potassium Chloride Carbon Dioxide BUN Creatinine Glucose POC Glucose 342 H Lactic Acid Calcium Phosphorus Magnesium Iron TIBC Direct Bilirubin AST ALT Alkaline Phosphatase Total Creatine Kinase CK-MB (CK-2) C-Reactive Protein Total Protein Albumin Vitamin B12 Salicylates Acetaminophen Miscellaneous Test Crossmatch 04/02/19 04/02/19 04/02/19 03:49 06:50 07:48 WBC RBC 2.65 L Hgb 8.6 L Hct 25.1 L MCV MCH MCHC RDW 17.6 H Plt Count 48 L [place] % (Auto) Lymph # Seg Neuts % (Manual) Lymphocytes % (Manual) Nucleated RBC % Seg Neutrophils # Man Lymphocytes # (Manual) Monocytes # (Manual) PT INR APTT D-Dimer POC ABG pH ABG pH POC ABG pO2 ABG pO2 ABG HCO3 ABG O2 Saturation ABG Base Excess ABG Hemoglobin VBG pH Oxyhemoglobin Sodium Potassium Chloride Carbon Dioxide BUN Creatinine Glucose POC Glucose 247 H 200 H Lactic Acid Calcium Phosphorus Magnesium Iron TIBC Direct Bilirubin AST ALT Alkaline Phosphatase Total Creatine Kinase CK-MB (CK-2) C-Reactive Protein Total Protein Albumin Vitamin B12 Salicylates Acetaminophen Miscellaneous Test Crossmatch 04/02/19 04/02/19 04/02/19 07:48 11:18 14:07 WBC RBC Hgb Hct MCV MCH MCHC RDW Plt Count [place] % (Auto) Lymph # Seg Neuts % (Manual) Lymphocytes % (Manual) Nucleated RBC % Seg Neutrophils # Man Lymphocytes # (Manual) Monocytes # (Manual) PT INR APTT D-Dimer POC ABG pH ABG pH POC ABG pO2 ABG pO2 ABG HCO3 ABG O2 Saturation ABG Base Excess ABG Hemoglobin VBG pH Oxyhemoglobin Sodium Potassium 3.5 L Chloride 115.7 H Carbon Dioxide 19 L BUN 29 H Creatinine 0.5 L Glucose 159 H POC Glucose 154 H 149 H Lactic Acid Calcium 7.5 L Phosphorus Magnesium Iron TIBC Direct Bilirubin AST 1418 H ALT 1134 H Alkaline Phosphatase 242 H Total Creatine Kinase CK-MB (CK-2) C-Reactive Protein Total Protein 4.2 L Albumin 2.1 L Vitamin B12 Salicylates Acetaminophen Miscellaneous Test Crossmatch 04/02/19 04/02/19 04/02/19 18:09 19:46 23:05 WBC RBC Hgb Hct MCV MCH MCHC RDW Plt Count [place] % (Auto) Lymph # Seg Neuts % (Manual) Lymphocytes % (Manual) Nucleated RBC % Seg Neutrophils # Man Lymphocytes # (Manual) Monocytes # (Manual) PT INR APTT D-Dimer POC ABG pH ABG pH POC ABG pO2 ABG pO2 ABG HCO3 ABG O2 Saturation ABG Base Excess ABG Hemoglobin VBG pH Oxyhemoglobin Sodium Potassium Chloride Carbon Dioxide BUN Creatinine Glucose POC Glucose 188 H 209 H 247 H Lactic Acid Calcium Phosphorus Magnesium Iron TIBC Direct Bilirubin AST ALT Alkaline Phosphatase Total Creatine Kinase CK-MB (CK-2) C-Reactive Protein Total Protein Albumin Vitamin B12 Salicylates Acetaminophen Miscellaneous Test Crossmatch 04/03/19 04/03/19 04/03/19 02:58 03:40 03:40 WBC RBC 2.87 L Hgb 9.3 L Hct 27.0 L MCV MCH MCHC RDW 17.2 H Plt Count 65 L [place] % (Auto) 9.8 H Lymph # 1.1 L Seg Neuts % (Manual) Lymphocytes % (Manual) Nucleated RBC % Seg Neutrophils # Man Lymphocytes # (Manual) Monocytes # (Manual) PT INR APTT D-Dimer POC ABG pH ABG pH POC ABG pO2 ABG pO2 ABG HCO3 ABG O2 Saturation ABG Base Excess ABG Hemoglobin VBG pH Oxyhemoglobin Sodium 147 H Potassium 3.5 L Chloride 116.7 H Carbon Dioxide 18 L BUN Creatinine 0.4 L Glucose 150 H POC Glucose 166 H Lactic Acid Calcium 8.1 L Phosphorus 2.20 L Magnesium Iron TIBC Direct Bilirubin AST 594 H ALT 861 H Alkaline Phosphatase 299 H Total Creatine Kinase CK-MB (CK-2) C-Reactive Protein Total Protein 4.4 L Albumin 2.1 L Vitamin B12 Salicylates Acetaminophen Miscellaneous Test Crossmatch 04/03/19 04/03/19 04/03/19 05:35 07:02 08:23 WBC RBC Hgb Hct MCV MCH MCHC RDW Plt Count [place] % (Auto) Lymph # Seg Neuts % (Manual) Lymphocytes % (Manual) Nucleated RBC % Seg Neutrophils # Man Lymphocytes # (Manual) Monocytes # (Manual) PT INR APTT D-Dimer POC ABG pH ABG pH POC ABG pO2 ABG pO2 97.7 H ABG HCO3 19.3 L ABG O2 Saturation ABG Base Excess -5.0 L ABG Hemoglobin 8.0 L VBG pH Oxyhemoglobin Sodium Potassium Chloride Carbon Dioxide BUN Creatinine Glucose POC Glucose 135 H 132 H Lactic Acid Calcium Phosphorus Magnesium Iron TIBC Direct Bilirubin AST ALT Alkaline Phosphatase Total Creatine Kinase CK-MB (CK-2) C-Reactive Protein Total Protein Albumin Vitamin B12 Salicylates Acetaminophen Miscellaneous Test Crossmatch 04/03/19 04/03/19 04/03/19 11:58 15:11 17:53 WBC RBC Hgb Hct MCV MCH MCHC RDW Plt Count [place] % (Auto) Lymph # Seg Neuts % (Manual) Lymphocytes % (Manual) Nucleated RBC % Seg Neutrophils # Man Lymphocytes # (Manual) Monocytes # (Manual) PT INR APTT D-Dimer POC ABG pH ABG pH POC ABG pO2 ABG pO2 ABG HCO3 ABG O2 Saturation ABG Base Excess ABG Hemoglobin VBG pH Oxyhemoglobin Sodium Potassium Chloride Carbon Dioxide BUN Creatinine Glucose POC Glucose 179 H 213 H 223 H Lactic Acid Calcium Phosphorus Magnesium Iron TIBC Direct Bilirubin AST ALT Alkaline Phosphatase Total Creatine Kinase CK-MB (CK-2) C-Reactive Protein Total Protein Albumin Vitamin B12 Salicylates Acetaminophen Miscellaneous Test Crossmatch 04/03/19 04/04/19 04/04/19 23:06 02:36 06:41 WBC RBC Hgb Hct MCV MCH MCHC RDW Plt Count [place] % (Auto) Lymph # Seg Neuts % (Manual) Lymphocytes % (Manual) Nucleated RBC % Seg Neutrophils # Man Lymphocytes # (Manual) Monocytes # (Manual) PT INR APTT D-Dimer POC ABG pH ABG pH POC ABG pO2 ABG pO2 ABG HCO3 ABG O2 Saturation ABG Base Excess ABG Hemoglobin VBG pH Oxyhemoglobin Sodium Potassium Chloride Carbon Dioxide BUN Creatinine Glucose POC Glucose 189 H 157 H 131 H Lactic Acid Calcium Phosphorus Magnesium Iron TIBC Direct Bilirubin AST ALT Alkaline Phosphatase Total Creatine Kinase CK-MB (CK-2) C-Reactive Protein Total Protein Albumin Vitamin B12 Salicylates Acetaminophen Miscellaneous Test Crossmatch 04/04/19 04/04/19 04/04/19 11:42 15:45 18:21 WBC RBC Hgb Hct MCV MCH MCHC RDW Plt Count [place] % (Auto) Lymph # Seg Neuts % (Manual) Lymphocytes % (Manual) Nucleated RBC % Seg Neutrophils # Man Lymphocytes # (Manual) Monocytes # (Manual) PT INR APTT D-Dimer POC ABG pH ABG pH POC ABG pO2 ABG pO2 ABG HCO3 ABG O2 Saturation ABG Base Excess ABG Hemoglobin VBG pH Oxyhemoglobin Sodium Potassium Chloride Carbon Dioxide BUN Creatinine Glucose POC Glucose 233 H 236 H 255 H Lactic Acid Calcium Phosphorus Magnesium Iron TIBC Direct Bilirubin AST ALT Alkaline Phosphatase Total Creatine Kinase CK-MB (CK-2) C-Reactive Protein Total Protein Albumin Vitamin B12 Salicylates Acetaminophen Miscellaneous Test Crossmatch 04/04/19 04/05/19 04/05/19 21:21 03:06 06:05 WBC RBC 2.68 L Hgb 8.5 L Hct 26.3 L MCV 98 H MCH MCHC RDW 17.4 H Plt Count [place] % (Auto) Lymph # Seg Neuts % (Manual) Lymphocytes % (Manual) Nucleated RBC % Seg Neutrophils # Man Lymphocytes # (Manual) Monocytes # (Manual) PT INR APTT D-Dimer POC ABG pH ABG pH POC ABG pO2 ABG pO2 ABG HCO3 ABG O2 Saturation ABG Base Excess ABG Hemoglobin VBG pH Oxyhemoglobin Sodium Potassium Chloride Carbon Dioxide BUN Creatinine Glucose POC Glucose 132 H 161 H Lactic Acid Calcium Phosphorus Magnesium Iron TIBC Direct Bilirubin AST ALT Alkaline Phosphatase Total Creatine Kinase CK-MB (CK-2) C-Reactive Protein Total Protein Albumin Vitamin B12 Salicylates Acetaminophen Miscellaneous Test Crossmatch 04/05/19 04/05/19 04/05/19 06:05 06:49 10:23 WBC RBC Hgb Hct MCV MCH MCHC RDW Plt Count [place] % (Auto) Lymph # Seg Neuts % (Manual) Lymphocytes % (Manual) Nucleated RBC % Seg Neutrophils # Man Lymphocytes # (Manual) Monocytes # (Manual) PT INR APTT D-Dimer POC ABG pH ABG pH POC ABG pO2 ABG pO2 ABG HCO3 ABG O2 Saturation ABG Base Excess ABG Hemoglobin VBG pH Oxyhemoglobin Sodium Potassium Chloride 112.5 H Carbon Dioxide BUN Creatinine 0.2 L Glucose 237 H POC Glucose 283 H 296 H Lactic Acid Calcium 7.9 L Phosphorus Magnesium Iron TIBC Direct Bilirubin AST ALT Alkaline Phosphatase Total Creatine Kinase CK-MB (CK-2) C-Reactive Protein Total Protein Albumin Vitamin B12 Salicylates Acetaminophen Miscellaneous Test Crossmatch 04/05/19 04/05/19 04/05/19 14:46 18:19 20:35 WBC RBC Hgb Hct MCV MCH MCHC RDW Plt Count [place] % (Auto) Lymph # Seg Neuts % (Manual) Lymphocytes % (Manual) Nucleated RBC % Seg Neutrophils # Man Lymphocytes # (Manual) Monocytes # (Manual) PT INR APTT D-Dimer POC ABG pH ABG pH POC ABG pO2 ABG pO2 ABG HCO3 ABG O2 Saturation ABG Base Excess ABG Hemoglobin VBG pH Oxyhemoglobin Sodium Potassium Chloride Carbon Dioxide BUN Creatinine Glucose POC Glucose 225 H 259 H 236 H Lactic Acid Calcium Phosphorus Magnesium Iron TIBC Direct Bilirubin AST ALT Alkaline Phosphatase Total Creatine Kinase CK-MB (CK-2) C-Reactive Protein Total Protein Albumin Vitamin B12 Salicylates Acetaminophen Miscellaneous Test Crossmatch 04/05/19 04/06/19 04/06/19 23:11 00:06 03:14 WBC RBC Hgb Hct MCV MCH MCHC RDW Plt Count [place] % (Auto) Lymph # Seg Neuts % (Manual) Lymphocytes % (Manual) Nucleated RBC % Seg Neutrophils # Man Lymphocytes # (Manual) Monocytes # (Manual) PT INR APTT D-Dimer 4526.86 H POC ABG pH ABG pH POC ABG pO2 ABG pO2 ABG HCO3 ABG O2 Saturation ABG Base Excess ABG Hemoglobin VBG pH Oxyhemoglobin Sodium Potassium Chloride Carbon Dioxide BUN Creatinine Glucose POC Glucose 205 H 228 H Lactic Acid Calcium Phosphorus Magnesium Iron TIBC Direct Bilirubin AST ALT Alkaline Phosphatase Total Creatine Kinase CK-MB (CK-2) C-Reactive Protein Total Protein Albumin Vitamin B12 Salicylates Acetaminophen Miscellaneous Test Crossmatch 04/06/19 04/06/19 04/06/19 05:20 05:20 07:57 WBC 15.1 H RBC 2.90 L Hgb 9.1 L Hct 28.0 L MCV MCH MCHC RDW 17.3 H Plt Count [place] % (Auto) Lymph # Seg Neuts % (Manual) Lymphocytes % (Manual) Nucleated RBC % Seg Neutrophils # Man Lymphocytes # (Manual) Monocytes # (Manual) PT INR APTT D-Dimer POC ABG pH ABG pH POC ABG pO2 ABG pO2 ABG HCO3 ABG O2 Saturation ABG Base Excess ABG Hemoglobin VBG pH Oxyhemoglobin Sodium Potassium Chloride Carbon Dioxide BUN Creatinine 0.2 L Glucose 161 H POC Glucose 191 H Lactic Acid Calcium 8.0 L Phosphorus Magnesium Iron TIBC Direct Bilirubin AST ALT Alkaline Phosphatase Total Creatine Kinase CK-MB (CK-2) C-Reactive Protein Total Protein Albumin Vitamin B12 Salicylates Acetaminophen Miscellaneous Test Crossmatch 04/06/19 04/06/19 04/06/19 12:09 18:24 22:07 WBC RBC Hgb Hct MCV MCH MCHC RDW Plt Count [place] % (Auto) Lymph # Seg Neuts % (Manual) Lymphocytes % (Manual) Nucleated RBC % Seg Neutrophils # Man Lymphocytes # (Manual) Monocytes # (Manual) PT INR APTT D-Dimer POC ABG pH ABG pH POC ABG pO2 ABG pO2 ABG HCO3 ABG O2 Saturation ABG Base Excess ABG Hemoglobin VBG pH Oxyhemoglobin Sodium Potassium Chloride Carbon Dioxide BUN Creatinine Glucose POC Glucose 143 H 161 H 140 H Lactic Acid Calcium Phosphorus Magnesium Iron TIBC Direct Bilirubin AST ALT Alkaline Phosphatase Total Creatine Kinase CK-MB (CK-2) C-Reactive Protein Total Protein Albumin Vitamin B12 Salicylates Acetaminophen Miscellaneous Test Crossmatch 04/07/19 04/07/19 04/07/19 03:00 04:30 04:30 WBC 13.0 H RBC 2.65 L Hgb 8.3 L Hct 25.5 L MCV MCH MCHC RDW 17.0 H Plt Count [place] % (Auto) Lymph # Seg Neuts % (Manual) Lymphocytes % (Manual) Nucleated RBC % Seg Neutrophils # Man Lymphocytes # (Manual) Monocytes # (Manual) PT INR APTT D-Dimer POC ABG pH ABG pH POC ABG pO2 ABG pO2 ABG HCO3 ABG O2 Saturation ABG Base Excess ABG Hemoglobin VBG pH Oxyhemoglobin Sodium Potassium Chloride Carbon Dioxide BUN Creatinine 0.2 L Glucose 208 H POC Glucose 224 H Lactic Acid Calcium 7.7 L Phosphorus Magnesium Iron TIBC Direct Bilirubin AST ALT Alkaline Phosphatase Total Creatine Kinase CK-MB (CK-2) C-Reactive Protein Total Protein Albumin Vitamin B12 Salicylates Acetaminophen Miscellaneous Test Crossmatch 04/07/19 04/07/19 04/07/19 05:47 08:27 10:33 WBC RBC Hgb Hct MCV MCH MCHC RDW Plt Count [place] % (Auto) Lymph # Seg Neuts % (Manual) Lymphocytes % (Manual) Nucleated RBC % Seg Neutrophils # Man Lymphocytes # (Manual) Monocytes # (Manual) PT INR APTT D-Dimer POC ABG pH ABG pH POC ABG pO2 ABG pO2 ABG HCO3 ABG O2 Saturation ABG Base Excess ABG Hemoglobin VBG pH Oxyhemoglobin Sodium Potassium Chloride Carbon Dioxide BUN Creatinine Glucose POC Glucose 225 H 176 H 207 H Lactic Acid Calcium Phosphorus Magnesium Iron TIBC Direct Bilirubin AST ALT Alkaline Phosphatase Total Creatine Kinase CK-MB (CK-2) C-Reactive Protein Total Protein Albumin Vitamin B12 Salicylates Acetaminophen Miscellaneous Test Crossmatch 04/07/19 04/07/19 04/07/19 14:13 18:32 22:42 WBC RBC Hgb Hct MCV MCH MCHC RDW Plt Count [place] % (Auto) Lymph # Seg Neuts % (Manual) Lymphocytes % (Manual) Nucleated RBC % Seg Neutrophils # Man Lymphocytes # (Manual) Monocytes # (Manual) PT INR APTT D-Dimer POC ABG pH ABG pH POC ABG pO2 ABG pO2 ABG HCO3 ABG O2 Saturation ABG Base Excess ABG Hemoglobin VBG pH Oxyhemoglobin Sodium Potassium Chloride Carbon Dioxide BUN Creatinine Glucose POC Glucose 219 H 227 H 238 H Lactic Acid Calcium Phosphorus Magnesium Iron TIBC Direct Bilirubin AST ALT Alkaline Phosphatase Total Creatine Kinase CK-MB (CK-2) C-Reactive Protein Total Protein Albumin Vitamin B12 Salicylates Acetaminophen Miscellaneous Test Crossmatch 04/08/19 04/08/19 04/08/19 02:31 05:37 14:10 WBC RBC Hgb Hct MCV MCH MCHC RDW Plt Count [place] % (Auto) Lymph # Seg Neuts % (Manual) Lymphocytes % (Manual) Nucleated RBC % Seg Neutrophils # Man Lymphocytes # (Manual) Monocytes # (Manual) PT INR APTT D-Dimer POC ABG pH ABG pH POC ABG pO2 ABG pO2 ABG HCO3 ABG O2 Saturation ABG Base Excess ABG Hemoglobin VBG pH Oxyhemoglobin Sodium Potassium Chloride Carbon Dioxide BUN Creatinine Glucose POC Glucose 194 H 194 H 139 H Lactic Acid Calcium Phosphorus Magnesium Iron TIBC Direct Bilirubin AST ALT Alkaline Phosphatase Total Creatine Kinase CK-MB (CK-2) C-Reactive Protein Total Protein Albumin Vitamin B12 Salicylates Acetaminophen Miscellaneous Test Crossmatch 04/08/19 04/08/19 04/09/19 17:43 23:20 03:28 WBC RBC Hgb Hct MCV MCH MCHC RDW Plt Count [place] % (Auto) Lymph # Seg Neuts % (Manual) Lymphocytes % (Manual) Nucleated RBC % Seg Neutrophils # Man Lymphocytes # (Manual) Monocytes # (Manual) PT INR APTT D-Dimer POC ABG pH ABG pH POC ABG pO2 ABG pO2 ABG HCO3 ABG O2 Saturation ABG Base Excess ABG Hemoglobin VBG pH Oxyhemoglobin Sodium Potassium Chloride Carbon Dioxide BUN Creatinine Glucose POC Glucose 261 H 277 H 301 H Lactic Acid Calcium Phosphorus Magnesium Iron TIBC Direct Bilirubin AST ALT Alkaline Phosphatase Total Creatine Kinase CK-MB (CK-2) C-Reactive Protein Total Protein Albumin Vitamin B12 Salicylates Acetaminophen Miscellaneous Test Crossmatch 04/09/19 04/09/19 04/09/19 05:35 05:35 05:35 WBC RBC 2.78 L Hgb 9.0 L Hct 26.7 L MCV MCH MCHC RDW 17.0 H Plt Count [place] % (Auto) Lymph # Seg Neuts % (Manual) Lymphocytes % (Manual) Nucleated RBC % Seg Neutrophils # Man Lymphocytes # (Manual) Monocytes # (Manual) PT INR APTT D-Dimer POC ABG pH ABG pH POC ABG pO2 ABG pO2 ABG HCO3 ABG O2 Saturation ABG Base Excess ABG Hemoglobin VBG pH Oxyhemoglobin Sodium Potassium Chloride Carbon Dioxide 31 H BUN Creatinine 0.2 L Glucose 218 H POC Glucose 240 H Lactic Acid Calcium Phosphorus Magnesium Iron TIBC Direct Bilirubin AST ALT Alkaline Phosphatase Total Creatine Kinase CK-MB (CK-2) C-Reactive Protein Total Protein Albumin Vitamin B12 Salicylates Acetaminophen Miscellaneous Test Crossmatch 04/09/19 04/09/19 04/09/19 09:01 12:23 17:33 WBC RBC Hgb Hct MCV MCH MCHC RDW Plt Count [place] % (Auto) Lymph # Seg Neuts % (Manual) Lymphocytes % (Manual) Nucleated RBC % Seg Neutrophils # Man Lymphocytes # (Manual) Monocytes # (Manual) PT INR APTT D-Dimer POC ABG pH ABG pH POC ABG pO2 ABG pO2 ABG HCO3 ABG O2 Saturation ABG Base Excess ABG Hemoglobin VBG pH Oxyhemoglobin Sodium Potassium Chloride Carbon Dioxide BUN Creatinine Glucose POC Glucose 160 H 162 H 149 H Lactic Acid Calcium Phosphorus Magnesium Iron TIBC Direct Bilirubin AST ALT Alkaline Phosphatase Total Creatine Kinase CK-MB (CK-2) C-Reactive Protein Total Protein Albumin Vitamin B12 Salicylates Acetaminophen Miscellaneous Test Crossmatch 04/09/19 04/09/19 04/10/19 21:26 22:28 03:16 WBC RBC Hgb Hct MCV MCH MCHC RDW Plt Count [place] % (Auto) Lymph # Seg Neuts % (Manual) Lymphocytes % (Manual) Nucleated RBC % Seg Neutrophils # Man Lymphocytes # (Manual) Monocytes # (Manual) PT INR APTT D-Dimer POC ABG pH ABG pH POC ABG pO2 ABG pO2 ABG HCO3 ABG O2 Saturation ABG Base Excess ABG Hemoglobin VBG pH Oxyhemoglobin Sodium Potassium Chloride Carbon Dioxide BUN Creatinine Glucose POC Glucose 196 H 224 H 163 H Lactic Acid Calcium Phosphorus Magnesium Iron TIBC Direct Bilirubin AST ALT Alkaline Phosphatase Total Creatine Kinase CK-MB (CK-2) C-Reactive Protein Total Protein Albumin Vitamin B12 Salicylates Acetaminophen Miscellaneous Test Crossmatch 04/10/19 04/10/19 04/10/19 04:15 04:15 05:30 WBC RBC 2.88 L Hgb 9.2 L Hct 27.9 L MCV MCH MCHC RDW 17.0 H Plt Count 454 H [place] % (Auto) Lymph # Seg Neuts % (Manual) Lymphocytes % (Manual) Nucleated RBC % Seg Neutrophils # Man Lymphocytes # (Manual) Monocytes # (Manual) PT INR APTT D-Dimer POC ABG pH ABG pH POC ABG pO2 ABG pO2 ABG HCO3 ABG O2 Saturation ABG Base Excess ABG Hemoglobin VBG pH Oxyhemoglobin Sodium Potassium Chloride Carbon Dioxide 32 H BUN Creatinine 0.2 L Glucose 126 H POC Glucose 135 H Lactic Acid Calcium Phosphorus Magnesium Iron TIBC Direct Bilirubin AST ALT Alkaline Phosphatase Total Creatine Kinase CK-MB (CK-2) C-Reactive Protein Total Protein Albumin Vitamin B12 Salicylates Acetaminophen Miscellaneous Test Crossmatch 04/10/19 04/10/19 04/10/19 12:14 15:29 23:38 WBC RBC Hgb Hct MCV MCH MCHC RDW Plt Count [place] % (Auto) Lymph # Seg Neuts % (Manual) Lymphocytes % (Manual) Nucleated RBC % Seg Neutrophils # Man Lymphocytes # (Manual) Monocytes # (Manual) PT INR APTT D-Dimer POC ABG pH ABG pH POC ABG pO2 ABG pO2 ABG HCO3 ABG O2 Saturation ABG Base Excess ABG Hemoglobin VBG pH Oxyhemoglobin Sodium Potassium Chloride Carbon Dioxide BUN Creatinine Glucose POC Glucose 109 H 149 H 268 H Lactic Acid Calcium Phosphorus Magnesium Iron TIBC Direct Bilirubin AST ALT Alkaline Phosphatase Total Creatine Kinase CK-MB (CK-2) C-Reactive Protein Total Protein Albumin Vitamin B12 Salicylates Acetaminophen Miscellaneous Test Crossmatch 04/11/19 04/11/19 04/11/19 05:27 12:08 18:08 WBC RBC Hgb Hct MCV MCH MCHC RDW Plt Count [place] % (Auto) Lymph # Seg Neuts % (Manual) Lymphocytes % (Manual) Nucleated RBC % Seg Neutrophils # Man Lymphocytes # (Manual) Monocytes # (Manual) PT INR APTT D-Dimer POC ABG pH ABG pH POC ABG pO2 ABG pO2 ABG HCO3 ABG O2 Saturation ABG Base Excess ABG Hemoglobin VBG pH Oxyhemoglobin Sodium Potassium Chloride Carbon Dioxide BUN Creatinine Glucose POC Glucose 109 H 185 H 190 H Lactic Acid Calcium Phosphorus Magnesium Iron TIBC Direct Bilirubin AST ALT Alkaline Phosphatase Total Creatine Kinase CK-MB (CK-2) C-Reactive Protein Total Protein Albumin Vitamin B12 Salicylates Acetaminophen Miscellaneous Test Crossmatch 04/11/19 04/12/19 23:23 06:00 WBC RBC Hgb Hct MCV MCH MCHC RDW Plt Count [place] % (Auto) Lymph # Seg Neuts % (Manual) Lymphocytes % (Manual) Nucleated RBC % Seg Neutrophils # Man Lymphocytes # (Manual) Monocytes # (Manual) PT INR APTT D-Dimer POC ABG pH ABG pH POC ABG pO2 ABG pO2 ABG HCO3 ABG O2 Saturation ABG Base Excess ABG Hemoglobin VBG pH Oxyhemoglobin Sodium Potassium Chloride Carbon Dioxide BUN Creatinine Glucose POC Glucose 127 H 201 H Lactic Acid Calcium Phosphorus Magnesium Iron TIBC Direct Bilirubin AST ALT Alkaline Phosphatase Total Creatine Kinase CK-MB (CK-2) C-Reactive Protein Total Protein Albumin Vitamin B12 Salicylates Acetaminophen Miscellaneous Test Crossmatch Allied health notes reviewed: RT
--- NOTE | 2019-04-12 10:45 | Progress Note ---
Assessment and Plan - Patient Problems (1) Abnormal CT of liver Current Visit: Yes Status: Acute Plan to address problem: Pt stable. Scheduled for trach/PEG tomorrow around noon. Updated mother today. Please call with questions Time=10min Subjective Date of service: 04/12/19 Patient Reports: Positive: no new complaints Objective Vital Signs - 12hr 04/11/19 04/12/19 04/12/19 23:00 00:00 01:00 Temperature 98.7 F Pulse Rate 102 H 121 H 120 H Pulse Rate [ 121 H From Monitor] Respiratory 13 17 14 Rate Blood Pressure 122/79 122/79 118/72 O2 Sat by Pulse 98 98 95 Oximetry 04/12/19 04/12/19 04/12/19 01:23 02:00 03:00 Temperature Pulse Rate 123 H 120 H 119 H Pulse Rate [ From Monitor] Respiratory 14 13 Rate Blood Pressure 118/72 113/71 104/64 O2 Sat by Pulse 94 92 90 Oximetry 04/12/19 04/12/19 04/12/19 04:00 04:26 05:00 Temperature 98.5 F Pulse Rate 102 H 105 H 114 H Pulse Rate [ 102 H From Monitor] Respiratory 14 18 Rate Blood Pressure 111/71 111/71 111/71 O2 Sat by Pulse 95 99 100 Oximetry 04/12/19 04/12/19 04/12/19 06:00 07:00 07:22 Temperature Pulse Rate 111 H 115 H 112 H Pulse Rate [ From Monitor] Respiratory 13 13 Rate Blood Pressure 128/89 138/95 138/95 O2 Sat by Pulse 93 98 99 Oximetry 04/12/19 04/12/19 04/12/19 07:36 08:00 09:00 Temperature 97.8 F Pulse Rate 119 H 111 H 102 H Pulse Rate [ 106 H From Monitor] Respiratory 20 14 18 Rate Blood Pressure 108/69 115/82 108/69 O2 Sat by Pulse 97 99 94 Oximetry 04/12/19 10:00 Temperature Pulse Rate 116 H Pulse Rate [ From Monitor] Respiratory 16 Rate Blood Pressure 122/84 O2 Sat by Pulse Oximetry - General physical appearance no distress, no pain, other (unresponsive) - ENT other (ETT in place) - Neck no masses, no bruits, trachea midline, no lymphadectomy, no venous distension - Respiratory normal expansion, normal respiratory effort - Abdomen soft, not tender, not distended - Integumentary no rash, no growths, no abnormal pigmentation - Labs 04/10/19 04:15 04/10/19 04:15
--- NOTE | 2019-04-12 10:53 | Progress Note ---
Assessment and Plan Cultures: 03/29 BCx: no growth 03/29 sputum Cx: C albicans 03/30/2019 MRSA nasal: negative A/P: 28 yo F PMHx T1DM admitted after receiving intubation and CPR due to non- responsiveness likely secondary to DKA 1. Sepsis - potential liver abscess v/s ischemia v/s trauma. Leukocytosis, tachycardia. 2. Aspiration pneumonia - Procal greatly elevated. Completed abx. Jenn in sputum culture not a pathogen of the respiratory tract. 3. Liver lesion - Unlikely abscess. Likely trauma based on follow up CT imaging and discussion with radiology. Appreciate Gen. Surg eval as well. 4. DKA - numerous metabolic derangements, per primary/ICU team 5. T1DM 6. Head lice - s/p treatment x 3. 7. Acute encephalopathy: MRI showed anoxic brain injury. Guarded prognosis, now DNR. Recs: - discontinued Ceftriaxone and Flagyl. Liver lesion not consistent with infection. - overall guarded prognosis Linda Norman MD FACP [facility] ([facility]) Subjective Date of service: 04/12/19 Principal diagnosis: Ac Hypoxemic Resp Failure; DKA; Severe sepsis with shock; ANGELICA Interval history: Remains intubated. no fever. Mental status unchanged. Had CT done yesterday. Objective - Exam Narrative Exam: Physical Exam: Constitutional: Intubated, unresponsive Head, Ears, Nose: Normocephalic, atraumatic. External ears, nose normal Eyes: Conjunctivae/corneas clear. No icterus. No ptosis. Neck: Supple, no meningeal signs. Intubated Oral: intubated Cardiovascular: S1, S2 normal. Respiratory: Good air entry, clear to auscultation bilaterally GI: Soft, non-tender; bowel sounds normal. Musculoskeletal: No pedal edema, no cyanosis. Skin: No rash or abscess Hem/Lymphatic: No palpable cervical or supraclavicular nodes. No lymphangitis Psych: unresponsive Neurological: Intubated, unresponsive. - Constitutional Vitals: Vital Signs Temp Pulse Resp BP Pulse Ox 97.8 F 116 H 16 122/84 94 04/12/19 08:00 04/12/19 10:00 04/12/19 10:00 04/12/19 10:00 04/12/19 09:00 Temperature -Last 24 Hours Temperature 97.8 F Temperature 98.5 F Temperature 98.7 F Temperature 98.9 F Temperature 98.2 F Temperature 98.3 F - Labs CBC & Chem 7: 04/10/19 04:15 04/10/19 04:15 Labs: Abnormal lab results 04/11/19 04/11/19 04/11/19 Range/Units 12:08 18:08 23:23 POC Glucose 185 H 190 H 127 H (70-105) 04/12/19 Range/Units 06:00 POC Glucose 201 H (70-105) - Imaging and cardiology CT scan - abdomen: report reviewed, image reviewed (liver lesion, likely subcapsular hematoma and trauma related, less likely infection)
--- NOTE | 2019-04-12 18:57 | Progress Note ---
Assessment and Plan Assessment and plan: Patient is 29 year old woman with a history of diabetes was brought to the emergency room following a cardiac arrest. Her last well-known time was 10:30 in the morning, she was traveling with a friend, she was unresponsive in the back seat. EMS was called, CPR was started and continued here in the emergency room. Patient was intubated in the ER, noted hypotensive started on dobutamine, epinephrine and Levophed drip, given IV fluids, found to be in DKA with BG ~2200, several metabolic derangements - placed on insulin drip and admitted to ICU. BP improved and she was weaned off pressors. Still intubated on vent, minimal response. patient has been in coma for several days, no improvement. She has a DNR status order. Acute respiratory failure s/p intubated, on vent - on vent, cont nebs, - Pulm following -surgery consulted for trach and peg -Aspiration precautions -VAP bundle Acute anoxic encephalopathy, POA - from cardiac arrest - Neurology following -MR concerning for anoxic Brain injury Cardiac arrest s/p resuscitation - likely 2/2 severe hyperglycemia - preserved EF on 2D echo DKA, severe - BG was >2200 on admission - s/p insulin drip. cont iv fluid - monitor BG q4h, on TF and on subqu insulin - adjust dose as needed Shock hypotensive vs sepsis - Now off pressors. Was on vasopressin, Levophed, Phenylephrine Sepsis with possible aspiration PNA - evident on CXR on admission with left sided infiltrates - cont abx per ID - Competed abx - Abx discontnued following notatioon that no evidence of liver lesion not consistent with infection per ID Head lice Permethin given isolation Acute renal failure, likely vasomotor nephropathy - resolved - cont iv fluid, monitor BMP Anemia, acute on chronic - no sign of blood loss s/p 2 Units PRBC transfused Hyperkalemia, resolved with fluid and insulin Hypernatremia Resolved hypokalemia, resolved Shock liver with elevated LFT and Coagulopathy - due to cardiac arrest and hypotension - cont to monitor Liver lesion ? abscess ID Physician following Discontinued abx, not consistent with infection as noted above Hypermagnesemia Hyperphosphatemia - cont to monitor, improved DVT Prophylaxis with Lovenox Poor prognosis discussed with mother at bedside. DNR status Mother has decided on DNR status The high probability of a clinically significant, sudden or life threatening deterioration of the [multiple] system(s) required my full and direct attention, intervention and personal management. The aggregate critical care time was [35] minutes. This time is in addition to time spent performing reported procedures but includes the following: [x] Data Review and interpretation [x] Patient assessment and monitoring of vital signs [x] Documentation [x] Medication orders and management History Interval history: Patient seen and examined, opens eyes spontaneously but remains unresponsive, on the vent Still intubated No Fever Hospitalist Physical - Physical exam Narrative exam: Gen: On full MVS and tolerating, intubated, HEENT: facial edema, atraumatic Neck: supple, no JVD Heart: S1 and S2 reg, no murmurs, rubs or gallop Lungs: Clear to auscultation, no rhonchi, no wheeze Abd: soft, non tender, non distended, normal BS, Ext: anasarca, leg edema, no cyanosis Neuro: Minimal responsive, does not follow commands, - Constitutional Vitals: Temp Pulse Resp BP Pulse Ox 98 F 107 H 14 122/86 99 04/12/19 16:00 04/12/19 18:01 04/12/19 18:01 04/12/19 18:01 04/12/19 18:01 General appearance: Present: other (intubated) Results - Labs CBC & Chem 7: 04/10/19 04:15 04/13/19 04:33 Labs: Laboratory Last Values WBC 7.8 K/mm3 (4.5-11.0) 04/10/19 04:15 RBC 2.88 M/mm3 (3.65-5.03) L 04/10/19 04:15 Hgb 9.2 gm/dl (10.1-14.3) L 04/10/19 04:15 Hct 27.9 % (30.3-42.9) L 04/10/19 04:15 MCV 97 fl (79-97) 04/10/19 04:15 MCH 32 pg (28-32) 04/10/19 04:15 MCHC 33 % (30-34) 04/10/19 04:15 RDW 17.0 % (13.2-15.2) H 04/10/19 04:15 Plt Count 454 K/mm3 (140-440) H 04/10/19 04:15 Lymph % (Auto) 16.9 % (13.4-35.0) 04/03/19 03:40 [place]lin % (Auto) 9.8 % (0.0-7.3) H 04/03/19 03:40 Eos % (Auto) 3.2 % (0.0-4.3) 04/03/19 03:40 Baso % (Auto) 0.4 % (0.0-1.8) 04/03/19 03:40 Lymph # 1.1 K/mm3 (1.2-5.4) L 04/03/19 03:40 [place]lin # 0.6 K/mm3 (0.0-0.8) 04/03/19 03:40 Eos # 0.2 K/mm3 (0.0-0.4) 04/03/19 03:40 Baso # 0.0 K/mm3 (0.0-0.1) 04/03/19 03:40 Add Manual Diff Complete 04/01/19 05:01 Total Counted 100 04/01/19 05:01 Seg Neutrophils % 69.7 % (40.0-70.0) 04/03/19 03:40 Seg Neuts % (Manual) 71.0 % (40.0-70.0) H 04/01/19 05:01 0 % 04/01/19 05:01 20.0 % (13.4-35.0) 04/01/19 05:01 Reactive Lymphs % (Man) 0 % 04/01/19 05:01 7.0 % (0.0-7.3) 04/01/19 05:01 2.0 % (0.0-4.3) 04/01/19 05:01 0 % (0.0-1.8) 04/01/19 05:01 0 % 04/01/19 05:01 0 % 04/01/19 05:01 0 % 04/01/19 05:01 0 % 04/01/19 05:01 Nucleated RBC % Not Reportable 04/01/19 05:01 Seg Neutrophils # 4.4 K/mm3 (1.8-7.7) 04/03/19 03:40 Seg Neutrophils # Man 4.8 K/mm3 (1.8-7.7) 04/01/19 05:01 Band Neutrophils # 0.0 K/mm3 04/01/19 05:01 1.4 K/mm3 (1.2-5.4) 04/01/19 05:01 Abs React Lymphs (Man) 0.0 K/mm3 04/01/19 05:01 0.5 K/mm3 (0.0-0.8) 04/01/19 05:01 0.1 K/mm3 (0.0-0.4) 04/01/19 05:01 0.0 K/mm3 (0.0-0.1) 04/01/19 05:01 0.0 K/mm3 04/01/19 05:01 0.0 K/mm3 04/01/19 05:01 0.0 K/mm3 04/01/19 05:01 Blast Cells # 0.0 K/mm3 04/01/19 05:01 WBC Morphology Not Reportable 04/01/19 05:01 Hypersegmented Neuts Not Reportable 04/01/19 05:01 Hyposegmented Neuts Not Reportable 04/01/19 05:01 Hypogranular Neuts Not Reportable 04/01/19 05:01 Not Reportable 04/01/19 05:01 Not Reportable 04/01/19 05:01 Not Reportable 04/01/19 05:01 Not Reportable 04/01/19 05:01 Not Reportable 04/01/19 05:01 Not Reportable 04/01/19 05:01 Not Reportable 04/01/19 05:01 Not Reportable 04/01/19 05:01 Plt Clumps, EDTA Not Reportable 04/01/19 05:01 Not Reportable 04/01/19 05:01 Not Reportable 04/01/19 05:01 Not Reportable 04/01/19 05:01 Plt Morphology Comment Not Reportable 04/01/19 05:01 RBC Morphology Normal 04/01/19 05:01 Dimorphic RBCs Not Reportable 04/01/19 05:01 Not Reportable 04/01/19 05:01 Not Reportable 04/01/19 05:01 Not Reportable 04/01/19 05:01 Not Reportable 04/01/19 05:01 Not Reportable 04/01/19 05:01 Not Reportable 04/01/19 05:01 Not Reportable 04/01/19 05:01 Not Reportable 04/01/19 05:01 Not Reportable 04/01/19 05:01 Not Reportable 04/01/19 05:01 Not Reportable 04/01/19 05:01 Not Reportable 04/01/19 05:01 Not Reportable 04/01/19 05:01 Not Reportable 04/01/19 05:01 Not Reportable 04/01/19 05:01 Not Reportable 04/01/19 05:01 Not Reportable 04/01/19 05:01 Not Reportable 04/01/19 05:01 Not Reportable 04/01/19 05:01 Acanthocytes (Spur) Not Reportable 04/01/19 05:01 Rouleaux Not Reportable 04/01/19 05:01 Not Reportable 04/01/19 05:01 Not Reportable 04/01/19 05:01 Not Reportable 04/01/19 05:01 Not Reportable 04/01/19 05:01 Hem Pathologist Commnt No 04/01/19 05:01 PT 13.9 Sec. (12.2-14.9) 04/01/19 17:14 INR 1.10 (0.87-1.13) 04/01/19 17:14 APTT 74.5 Sec. (24.2-36.6) H* 03/29/19 19:20 313 mg/dl (211-480) 04/01/19 17:14 4526.86 ng/mlDDU (0-234) H 04/06/19 00:06 Heparin Anti-Xa, Unfract Negative (Negative) 03/31/19 15:00 POC ABG pH 7.374 (7.35-7.45) 04/04/19 03:46 ABG pH 7.396 pH Units (7.350-7.450) 04/03/19 05:35 POC ABG pCO2 36.2 (35-45) 04/04/19 03:46 ABG pCO2 32.2 mm Hg 04/03/19 05:35 POC ABG pO2 96 (80-105) 04/04/19 03:46 ABG pO2 97.7 mm Hg (80.0-90.0) H 04/03/19 05:35 POC ABG HCO3 21.2 (22-26 mml/L) 04/04/19 03:46 ABG HCO3 19.3 mmol/L (20.0-26.0) L 04/03/19 05:35 POC ABG Total CO2 22 (23-27mmol/L) 04/04/19 03:46 POC ABG O2 Sat 97 04/04/19 03:46 ABG O2 Saturation 97.6 % (95.0-99.0) 04/03/19 05:35 ABG O2 Content 10.9 (0.0-44) 04/03/19 05:35 POC ABG Base Excess -4 ((-2) - (+3)mmol/L) 04/04/19 03:46 ABG Base Excess -5.0 mmol/L (-2.0-3.0) L 04/03/19 05:35 ABG Hemoglobin 8.0 gm/dl (12.0-16.0) L 04/03/19 05:35 ABG Carboxyhemoglobin 2.1 % (0.0-5.0) 04/03/19 05:35 ABG Methemoglobin 0.5 % (0.0-1.5) 04/03/19 05:35 VBG pH 6.800 (7.320-7.420) L* 03/29/19 19:47 95.1 % (95.0-99.0) 04/03/19 05:35 25 % 04/04/19 03:46 Sodium 144 mmol/L (137-145) 04/10/19 04:15 Potassium 3.8 mmol/L (3.6-5.0) 04/10/19 04:15 Chloride 104.0 mmol/L (98-107) 04/10/19 04:15 Carbon Dioxide 32 mmol/L (22-30) H 04/10/19 04:15 12 mmol/L 04/10/19 04:15 BUN 9 mg/dL (7-17) 04/10/19 04:15 0.2 mg/dL (0.7-1.2) L 04/10/19 04:15 Estimated GFR > 60 ml/min 04/10/19 04:15 45 % 04/10/19 04:15 Glucose 126 mg/dL (65-100) H 04/10/19 04:15 POC Glucose 145 (70-105) H 04/12/19 17:56 Lactic Acid 3.30 mmol/L (0.7-2.0) H* 03/31/19 07:50 Calcium 8.4 mg/dL (8.4-10.2) 04/10/19 04:15 Phosphorus 4.10 mg/dL (2.5-4.5) 04/09/19 16:25 Magnesium 1.80 mg/dL (1.7-2.3) 04/09/19 16:25 Iron 26 ug/dL (37-170) L 03/31/19 08:20 TIBC 193 mcg/dL (250-450) L 03/31/19 08:20 0.60 mg/dL (0.1-1.2) 04/03/19 03:40 0.2 mg/dL (0-0.2) 04/02/19 07:48 0.5 mg/dL 04/02/19 07:48 AST 594 units/L (5-40) H 04/03/19 03:40 ALT 861 units/L (7-56) H 04/03/19 03:40 299 units/L (35-129) H 04/03/19 03:40 2465 units/L (30-135) H 03/30/19 05:26 CK-MB (CK-2) 52.7 ng/mL (0.0-4.0) H 03/30/19 05:26 CK-MB (CK-2) Rel Index 2.1 (0-4) 03/30/19 05:26 < 0.010 ng/mL (0.00-0.029) 04/06/19 05:20 2.40 mg/dL (0.00-1.30) H 03/30/19 12:57 4.4 g/dL (6.3-8.2) L 04/03/19 03:40 2.1 g/dL (3.9-5) L 04/03/19 03:40 0.9 % 04/03/19 03:40 See scanned result 03/31/19 15:00 Vitamin B12 > 2000 pg/mL (211-911) H 03/31/19 08:20 > 20 ng/mL (7.3-26.0) 03/31/19 08:20 HCG, Qual Negative (Negative) 03/29/19 19:20 Yellow (Yellow) 03/29/19 23:10 Slightly-cloudy (Clear) 03/29/19 23:10 6.0 (5.0-7.0) 03/29/19 23:10 Ur Specific [place] 1.021 (1.003-1.030) 03/29/19 23:10 100 mg/dl mg/dL (Negative) 03/29/19 23:10 >=500 mg/dL (Negative) 03/29/19 23:10 20 mg/dL (Negative) 03/29/19 23:10 Lg (Negative) 03/29/19 23:10 Neg (Negative) 03/29/19 23:10 Neg (Negative) 03/29/19 23:10 < 2.0 mg/dL (<2.0) 03/29/19 23:10 Ur Leukocyte Esterase Neg (Negative) 03/29/19 23:10 1.0 /HPF (0.0-6.0) 03/29/19 23:10 1.0 /HPF (0.0-6.0) 03/29/19 23:10 Few /HPF 03/29/19 23:10 Salicylates 0.8 mg/dL (2.8-20.0) L 03/30/19 Unknown Presumptive negative 03/29/19 23:10 Presumptive negative 03/29/19 23:10 Acetaminophen < 5.0 ug/mL (10.0-30.0) L 03/30/19 Unknown Ur Barbiturates Screen Presumptive negative 03/29/19 23:10 Ur Phencyclidine Scrn Presumptive negative 03/29/19 23:10 Ur Amphetamines Screen Presumptive negative 03/29/19 23:10 U Benzodiazepines Scrn Presumptive negative 03/29/19 23:10 Presumptive negative 03/29/19 23:10 U Marijuana (THC) Screen Presumptive negative 03/29/19 23:10 Disclamer 03/29/19 23:10 Heparin-induced Plt Ab Negative (Negative) 03/31/19 15:00 UF Heparin High Dose 0 % Release 03/31/19 15:00 FABIAN UFH Low Dose 0.1 0 % Release 03/31/19 15:00 FABIAN UFH Low Dose 0.5 0 % Release 03/31/19 15:00 Hepatitis A IgM Ab Non-reactive (NonReactive) 03/30/19 Unknown Hep Bs Antigen Non-reactive (Negative) 03/30/19 Unknown Hep B Core IgM Ab Non-reactive (NonReactive) 03/30/19 Unknown Non-reactive (NonReactive) 03/30/19 Unknown Flexitest 1 H 03/30/19 14:00 Blood Type O POSITIVE 03/30/19 03:30 Antibody Screen Negative 03/30/19 03:30 Crossmatch See Detail 03/30/19 03:30 Active Medications - Current Medications Current Medications: Generic Name Dose Route Start Last Admin Trade Name Freq PRN Reason Stop Dose Admin Acetaminophen 650 mg 03/29/19 23:34 04/01/19 23:38 Tylenol PO 650 mg Q4H PRN Administration Pain MILD(1-3)/Fever >100.5/WARE Lipase/Protease/Amylase 1 each 04/02/19 11:[address] 10,500 Unit FEEDTUBE PRN PRN For Clogged Feeding Tube Dextrose 0 ml 03/29/19 20:33 03/31/19 02:15 D50w (25gm) Syringe IV 10 ml PRN PRN Administration Hypoglycemia Famotidine 20 mg 04/02/19 10:00 04/12/19 09:34 Pepcid PO 20 mg BID ZAMZAM Administration Fentanyl 50 mcg 04/05/19 11:00 04/11/19 20:10 Sublimaze IV 50 mcg Q2H PRN Administration Pain , Severe (7-10)/AGITATION Hydrophilic Ointment 1 applic 03/30/19 11:24 Vaseline Lip Therapy TP Q2HR PRN Dry Lips Norepinephrine 4 mg in 250 mls @ 7.5 mls/hr 03/29/19 21:00 04/01/19 19:00 Levophed Drip 4 Mg/Ns 250 Ml IV 0 mcg/min TITR ZAMZAM 0 mls/hr Titration Protocol 2 MCG/MIN Insulin Glargine 20 units 04/09/19 22:00 04/11/19 21:38 Lantus SUB-Q 20 units QHS ZAMZAM Administration Insulin Human Regular 0 units 04/09/19 12:00 04/12/19 12:29 Humulin R SUB-Q Not Given Q6HR [facility] Protocol Levetiracetam 500 mg 04/03/19 10:00 04/12/19 09:34 Keppra PO 500 mg BID ZAMZAM Administration Multi-Ingred Cream/Lotion/Oil/Oint 1 applic 03/30/19 11:24 04/06/19 11:39 Artificial Tears Ophth Oint OU 1 applic Q4HR PRN Administration Dry Eye(s) Ondansetron HCl 4 mg 03/29/19 23:34 Zofran IV Q8H PRN Nausea And Vomiting Simple Syrup 15 ml 04/02/19 11:44 Simple Syrup FEEDTUBE PRN PRN Hypoglycemia Simple Syrup 30 ml 04/02/19 11:44 Simple Syrup FEEDTUBE PRN PRN Hypoglycemia Sodium Bicarbonate 325 mg 04/02/19 11:44 Sodium Bicarbonate FEEDTUBE PRN PRN For Clogged Feeding Tube Sodium Chloride 10 ml 03/30/19 10:00 04/12/19 09:35 Sodium Chloride Flush Syringe 10 Ml IV 10 ml BID ZAMZAM Administration Sodium Chloride 10 ml 03/29/19 23:34 Sodium Chloride Flush Syringe 10 Ml IV PRN PRN LINE FLUSH Nutrition/Malnutrition Assess - Dietary Evaluation Nutrition/Malnutrition Findings: Nutrition Notes Start: 03/30/19 13:14 Freq: Status: Active Protocol: Document 04/11/19 10:44 LM (Rec: 04/11/19 10:54 LM [email or web address]) Nutrition Notes Initial or Follow up Reassessment Current Diagnosis Diabetes,Sepsis,Respiratory Failure Other Pertinent Diagnosis s/p cardiac arrest, DKA, ARF, Shock liver Current Diet Glucerna 1.2 at 50 ml/hr Labs/Tests POC glu 109 Pertinent Medications Reviewed Height 5 ft Weight 42.8 kg [place] Body Weight (kg) 45.45 BMI 18.4 Weight change and time frame Wt change noted Subjective/Other Information Glucerna running at 50 ml/hr. Pt is tolerateing TF. Per MD pt will be getting trach and PEG. Pt remains on vent. Burn Absent Trauma Absent #1 Nutrition Diagnosis Inadequate oral intake Diagnosis Progress(for reassessment Continues documentation) Is patient on ventilator? Yes Is Patient Ambulatory and/or Out of Bed No REE-([place]-confined to bed) 1279.860 Kcal/Kg value to use for calculation 40 Approximate Energy Requirements Using 1712 kcal/Kg Additional Notes Protein: 1.2-2g/k-86g/day Fluids: 1ml/kcal Nutrition Intervention Change Diet Order: Continue TF Nutrition Support: Glucerna 1.2 at 50ml/hr with 80ml water flush q4h. Kcal 1,440 Protein (gm) 72 Fluid (mL) 966 Goal #1 Meet at least 75% of energy and protein needs Follow-Up By: 04/18/19 Additional Comments F/U for TF tolerance/rate
--- NOTE | 2019-04-12 21:41 | Ultrasound Report ---
ULTRASOUND ABDOMEN, COMPLETE INDICATION: R/O liver abscess COMPARISON: CT abdomen 04/11/2019. FINDINGS: Pancreas: Normal. Abdominal Aorta: Normal. IVC: Normal. Liver: There is a complex cystic lesion along the periphery of the right hepatic lobe dome superiorly which measures approximately 12 x 8 x 5 cm. This is very heterogeneous but no flow is seen within it . Gallbladder: Normal. Bile ducts: Normal. Common Bile Duct measures 2-3 mm. Right Kidney: Normal. Left Kidney: Normal. Spleen: Normal. Free fluid: None. Additional Findings: None. IMPRESSION: 1. As seen on the CT from one day prior, there is a large complex fluid collection along the right he patic lobe dome. This appears to be subcapsular. Primary differential considerations include subcapsu lar abscess or hematoma. 2. No other significant findings. Signer Name: Danish Goddard MD Signed: 04/12/2019 9:37 PM Workstation Name: [id number]
[2019-04-12] MEDS: LANTUS SUB-Q SCH (21:53)
[2019-04-13] MEDS: HumuLIN R SUB-Q SCH ×3 (01:00→18:16)
[2019-04-13 06:19] LABS: BUN/Creatinine Ratio TNR; Blood Urea Nitrogen TNR mg/dL (7-17)
[2019-04-13 06:20] LABS: Calcium TNR mg/dL (8.4-10.2); Hemolysis Index TNR
[2019-04-13 09:14] LABS: Hematocrit 30.2 % (30.3-42.9); Hemoglobin 10.1 gm/dl (10.1-14.3); Mean Corpuscular HGB Conc 34 % (30-34); Mean Corpuscular Volume 97 fl (79-97); Platelet Count 678 K/mm3 (140-440); Red Blood Count 3.12 M/mm3 (3.65-5.03)
[2019-04-13 09:25] LABS: BUN/Creatinine Ratio 40; Blood Urea Nitrogen 8 mg/dL (7-17); Calcium 8.9 mg/dL (8.4-10.2); Hemolysis Index 5
[2019-04-13] MEDS: SODIUM CHLORIDE FLUSH SYRINGE 10 ML IV SCH ×2 (10:00→21:44)
[2019-04-13] MEDS: PEPCID PO SCH ×2 (11:06→21:44)
[2019-04-13] MEDS: KEPPRA PO SCH ×2 (11:06→21:44)
--- NOTE | 2019-04-13 11:11 | Progress Note ---
Assessment and Plan Acute toxic metabolic encephalopathy. Diabetic ketoacidosis. Severe sepsis with shock. Possible aspiration pneumonia. History of polysubstance abuse. Leukocytosis. Elevated serum transaminases, possible shock liver. Hyponatremia related to her severe hyperglycemia. Anemia that is macrocytic. History of seizure disorder. Severe metabolic acidosis. Acute kidney injury, possibly on chronic - resume weaning post tracheostomy - continue set rate at 12/min while resting - continue contact isolation - HIT assay negative; will resume lovenox in am - continue to follow mental status closely - follow clinically off AB's at this point - continue daily SAT and SBT assessments as tolerated - continue enteral nutrition with glucerna and adjust rate per surface grinder tender - continue bronchodilators with pulmonary hygiene per RT - VAP bundle addressed - continue to wean supplemental O2 to keep O2 sats > 90% - VTE prophylaxis - Stress ulcer prophylaxis - continue accuchecks with glycemic control per SSI for target blood glucose 140-180 mg/dL - continue empiric antibiotics; de-escalate per ID rec's and based on clinical and microbiologic data - sedation target of RASS 0 to -1 - continue Keppra for seizures - continue mobility protocols / off loading for pressure ulcer prevention - Critical care bundles addressed - continue Seizure precautions - fall precautions - neuro-checks per RN - continue other care per attending / other consultants CONDITION: CRITICAL PROGNOSIS: GUARDED TO GRAVE CODE STATUS: FULL CODE The high probability of a clinically significant, sudden or life threatening deterioration of the [Neurology Respiratory, Cardiovascular] system(s) required my full and direct attention, intervention and personal management. The aggregate critical care time was [33] minutes. This time is in addition to time spent performing reported procedures but includes the following: [x] Data Review and interpretation [x] Patient assessment and monitoring of vital signs [x] Documentation [x] Medication orders and management Subjective Date of service: 04/13/19 Principal diagnosis: Ac Hypoxemic Resp Failure; DKA; Severe sepsis with shock; ANGELICA Interval history: Patient is seen today for: Acute Hypoxemic Resp Failure; Ac toxic metabolic encephalopathy; DKA; Severe sepsis with shock; Possible aspiration pneumonia; History of polysubstance abuse; History of seizure disorder; Acute kidney injury, possibly on chronic Seen and examined at bedside; 24hour events reviewed; nursing and respiratory care staff consulted; no adverse overnight events reported to me; resting peacefully in bed; tentatively for tracheostomy today; No emesis or overt aspiration; AMS is persistent Objective Vital Signs - 12hr 04/12/19 04/13/19 04/13/19 23:33 00:00 00:08 Temperature 97.4 F L Pulse Rate 104 H 119 H Pulse Rate [ 113 H From Monitor] Respiratory 18 Rate Blood Pressure 128/93 127/100 O2 Sat by Pulse 100 100 Oximetry 04/13/19 04/13/19 04/13/19 01:00 02:00 03:00 Temperature Pulse Rate 106 H 108 H 111 H Pulse Rate [ From Monitor] Respiratory 13 17 16 Rate Blood Pressure 125/89 133/89 133/97 O2 Sat by Pulse 100 99 99 Oximetry 04/13/19 04/13/19 04/13/19 04:00 05:00 05:46 Temperature 97.9 F Pulse Rate 105 H 106 H 109 H Pulse Rate [ 110 H From Monitor] Respiratory 13 13 Rate Blood Pressure 125/95 129/95 129/95 O2 Sat by Pulse 100 100 100 Oximetry 04/13/19 04/13/19 04/13/19 06:01 07:01 07:13 Temperature Pulse Rate 117 H 96 H 91 H Pulse Rate [ From Monitor] Respiratory 16 16 Rate Blood Pressure 129/95 129/95 129/95 O2 Sat by Pulse 96 94 94 Oximetry 04/13/19 04/13/19 04/13/19 08:00 08:11 09:01 Temperature 97 F L Pulse Rate 92 H 87 93 H Pulse Rate [ 84 From Monitor] Respiratory 17 18 20 Rate Blood Pressure 108/73 108/73 108/73 O2 Sat by Pulse 95 96 97 Oximetry 04/13/19 04/13/19 10:00 11:00 Temperature Pulse Rate 84 85 Pulse Rate [ From Monitor] Respiratory 19 20 Rate Blood Pressure 117/77 118/79 O2 Sat by Pulse 97 99 Oximetry Constitutional: no acute distress, other (young CF normocephalic and atraumatic on MVS) Eyes: non-icteric ENT: oropharynx moist, other (ETT 22-23 cm Jessi) Neck: supple, no lymphadenopathy, no JVD Effort: mildly labored Ascultation: Bilateral: diminished breath sounds, rhonchi Percussion: Bilateral: not dull Cardiovascular: regular rate and rhythm, other (sinus tachycardia) Gastrointestinal: hypoactive bowel sounds, soft, non-tender, non-distended Integumentary: erythema (noted on upper extremity) Extremities: no cyanosis, pink and warm, pulses normal, no ischemia or petechiae, edema (trace to 1+) Neurologic: unable to assess (remains unresponsive, opens eyes on suctioning, not obeying commands) Psychiatric: other (unable to assess) CBC and BMP: 04/13/19 08:50 04/13/19 08:50 ABG, PT/INR, D-dimer: ABG POC ABG pH 7.374 (7.35-7.45) 04/04/19 03:46 ABG pH 7.396 pH Units (7.350-7.450) 04/03/19 05:35 POC ABG pCO2 36.2 (35-45) 04/04/19 03:46 ABG pCO2 32.2 mm Hg 04/03/19 05:35 POC ABG pO2 96 (80-105) 04/04/19 03:46 ABG pO2 97.7 mm Hg (80.0-90.0) H 04/03/19 05:35 POC ABG HCO3 21.2 (22-26 mml/L) 04/04/19 03:46 POC ABG Total CO2 22 (23-27mmol/L) 04/04/19 03:46 POC ABG O2 Sat 97 04/04/19 03:46 ABG O2 Saturation 97.6 % (95.0-99.0) 04/03/19 05:35 PT/INR, D-dimer PT 13.9 Sec. (12.2-14.9) 04/01/19 17:14 INR 1.10 (0.87-1.13) 04/01/19 17:14 4526.86 ng/mlDDU (0-234) H 04/06/19 00:06 Abnormal lab findings: Abnormal Labs 03/29/19 03/29/19 03/29/19 19:11 19:20 19:20 WBC 26.7 H RBC 2.52 L Hgb 8.1 L Hct MCV 148 H MCH MCHC 22 L RDW 18.5 H Plt Count [place] % (Auto) Lymph # Seg Neuts % (Manual) 82.0 H Lymphocytes % (Manual) 7.0 L Nucleated RBC % Seg Neutrophils # Man 21.9 H Lymphocytes # (Manual) Monocytes # (Manual) 1.9 H PT 21.8 H INR 1.95 H APTT 74.5 H* D-Dimer POC ABG pH ABG pH POC ABG pO2 ABG pO2 ABG HCO3 ABG O2 Saturation ABG Base Excess ABG Hemoglobin VBG pH Oxyhemoglobin Sodium Potassium Chloride Carbon Dioxide BUN Creatinine Glucose POC Glucose > 500 H Lactic Acid Calcium Phosphorus Magnesium Iron TIBC Direct Bilirubin AST ALT Alkaline Phosphatase Total Creatine Kinase CK-MB (CK-2) C-Reactive Protein Total Protein Albumin Vitamin B12 Salicylates Acetaminophen Miscellaneous Test Crossmatch 03/29/19 03/29/19 03/29/19 19:20 19:47 20:59 WBC RBC Hgb Hct MCV MCH MCHC RDW Plt Count [place] % (Auto) Lymph # Seg Neuts % (Manual) Lymphocytes % (Manual) Nucleated RBC % Seg Neutrophils # Man Lymphocytes # (Manual) Monocytes # (Manual) PT INR APTT D-Dimer POC ABG pH 6.892 L ABG pH POC ABG pO2 236 H ABG pO2 ABG HCO3 ABG O2 Saturation ABG Base Excess ABG Hemoglobin VBG pH 6.800 L* Oxyhemoglobin Sodium 118 L* Potassium 9.0 H* Chloride 64.5 L Carbon Dioxide 7 L* BUN 53 H Creatinine 2.1 H Glucose 2196 H* POC Glucose Lactic Acid Calcium 12.4 H* Phosphorus Magnesium Iron TIBC Direct Bilirubin AST 3900 H ALT 1034 H Alkaline Phosphatase 316 H Total Creatine Kinase CK-MB (CK-2) C-Reactive Protein Total Protein 5.1 L Albumin 2.8 L Vitamin B12 Salicylates Acetaminophen Miscellaneous Test Crossmatch 03/29/19 03/29/19 03/29/19 22:45 22:45 22:45 WBC RBC Hgb Hct MCV MCH MCHC RDW Plt Count [place] % (Auto) Lymph # Seg Neuts % (Manual) Lymphocytes % (Manual) Nucleated RBC % Seg Neutrophils # Man Lymphocytes # (Manual) Monocytes # (Manual) PT INR APTT D-Dimer POC ABG pH ABG pH POC ABG pO2 ABG pO2 ABG HCO3 ABG O2 Saturation ABG Base Excess ABG Hemoglobin VBG pH Oxyhemoglobin Sodium 132 L D Potassium 7.0 H* Chloride 84.3 L Carbon Dioxide 3 L* BUN 48 H Creatinine 1.8 H Glucose 1779 H* POC Glucose Lactic Acid Calcium Phosphorus 21.70 H Magnesium 4.70 H Iron TIBC Direct Bilirubin AST ALT Alkaline Phosphatase Total Creatine Kinase 363 H CK-MB (CK-2) C-Reactive Protein Total Protein Albumin Vitamin B12 Salicylates Acetaminophen Miscellaneous Test Crossmatch 03/29/19 03/29/19 03/30/19 Unknown Unknown 00:11 WBC RBC Hgb Hct MCV MCH MCHC RDW Plt Count [place] % (Auto) Lymph # Seg Neuts % (Manual) Lymphocytes % (Manual) Nucleated RBC % Seg Neutrophils # Man Lymphocytes # (Manual) Monocytes # (Manual) PT INR APTT D-Dimer POC ABG pH ABG pH POC ABG pO2 ABG pO2 ABG HCO3 ABG O2 Saturation ABG Base Excess ABG Hemoglobin VBG pH Oxyhemoglobin Sodium 122 L Potassium 7.9 H* 6.4 H* Chloride 75.3 L 89.7 L Carbon Dioxide 3 L* 12 L D BUN 52 H 46 H Creatinine 2.0 H 1.7 H Glucose 2043 H* 1591 H* POC Glucose Lactic Acid Calcium 7.8 L Phosphorus 19.30 H Magnesium 3.90 H Iron TIBC Direct Bilirubin AST ALT Alkaline Phosphatase Total Creatine Kinase CK-MB (CK-2) C-Reactive Protein Total Protein Albumin Vitamin B12 Salicylates Acetaminophen Miscellaneous Test Crossmatch 03/30/19 03/30/19 03/30/19 00:11 02:14 02:14 WBC RBC Hgb Hct MCV MCH MCHC RDW Plt Count [place] % (Auto) Lymph # Seg Neuts % (Manual) Lymphocytes % (Manual) Nucleated RBC % Seg Neutrophils # Man Lymphocytes # (Manual) Monocytes # (Manual) PT INR APTT D-Dimer POC ABG pH ABG pH POC ABG pO2 ABG pO2 ABG HCO3 ABG O2 Saturation ABG Base Excess ABG Hemoglobin VBG pH Oxyhemoglobin Sodium Potassium Chloride Carbon Dioxide 9 L* BUN 45 H Creatinine 1.7 H Glucose 1155 H* POC Glucose Lactic Acid Calcium 7.9 L Phosphorus 10.90 H D 5.30 H D Magnesium 3.10 H 2.90 H Iron TIBC Direct Bilirubin AST ALT Alkaline Phosphatase Total Creatine Kinase CK-MB (CK-2) C-Reactive Protein Total Protein Albumin Vitamin B12 Salicylates Acetaminophen Miscellaneous Test Crossmatch 03/30/19 03/30/19 03/30/19 03:15 03:30 04:23 WBC 18.0 H RBC 2.31 L Hgb 7.3 L Hct 23.8 L D MCV 103 H MCH MCHC RDW 17.1 H Plt Count [place] % (Auto) Lymph # Seg Neuts % (Manual) 79.0 H Lymphocytes % (Manual) Nucleated RBC % Seg Neutrophils # Man 14.2 H Lymphocytes # (Manual) Monocytes # (Manual) PT INR APTT D-Dimer POC ABG pH 7.251 L ABG pH POC ABG pO2 156 H ABG pO2 ABG HCO3 ABG O2 Saturation ABG Base Excess ABG Hemoglobin VBG pH Oxyhemoglobin Sodium Potassium Chloride Carbon Dioxide BUN Creatinine Glucose POC Glucose Lactic Acid Calcium Phosphorus Magnesium Iron TIBC Direct Bilirubin AST ALT Alkaline Phosphatase Total Creatine Kinase CK-MB (CK-2) C-Reactive Protein Total Protein Albumin Vitamin B12 Salicylates Acetaminophen Miscellaneous Test Crossmatch See Detail 03/30/19 03/30/19 03/30/19 05:26 05:26 10:38 WBC RBC Hgb Hct MCV MCH MCHC RDW Plt Count [place] % (Auto) Lymph # Seg Neuts % (Manual) Lymphocytes % (Manual) Nucleated RBC % Seg Neutrophils # Man Lymphocytes # (Manual) Monocytes # (Manual) PT INR APTT D-Dimer POC ABG pH ABG pH POC ABG pO2 ABG pO2 ABG HCO3 ABG O2 Saturation ABG Base Excess ABG Hemoglobin VBG pH Oxyhemoglobin Sodium 158 H D Potassium 3.5 L Chloride 109.3 H Carbon Dioxide 19 L D BUN 40 H Creatinine 1.5 H Glucose 760 H* POC Glucose 380 H Lactic Acid Calcium 7.3 L Phosphorus Magnesium 2.60 H Iron TIBC Direct Bilirubin AST 73991 H ALT 2156 H Alkaline Phosphatase 271 H Total Creatine Kinase 2465 H CK-MB (CK-2) 52.7 H C-Reactive Protein Total Protein 4.5 L Albumin 2.4 L Vitamin B12 Salicylates Acetaminophen Miscellaneous Test Crossmatch 03/30/19 03/30/19 03/30/19 11:08 12:25 12:57 WBC RBC Hgb Hct MCV MCH MCHC RDW Plt Count [place] % (Auto) Lymph # Seg Neuts % (Manual) Lymphocytes % (Manual) Nucleated RBC % Seg Neutrophils # Man Lymphocytes # (Manual) Monocytes # (Manual) PT INR APTT D-Dimer POC ABG pH ABG pH POC ABG pO2 ABG pO2 ABG HCO3 ABG O2 Saturation ABG Base Excess ABG Hemoglobin VBG pH Oxyhemoglobin Sodium 156 H Potassium 3.2 L Chloride 116.4 H Carbon Dioxide 21 L BUN 37 H Creatinine Glucose 162 H POC Glucose 263 H 196 H Lactic Acid Calcium 7.2 L Phosphorus Magnesium Iron TIBC Direct Bilirubin AST ALT Alkaline Phosphatase Total Creatine Kinase CK-MB (CK-2) C-Reactive Protein Total Protein Albumin Vitamin B12 Salicylates Acetaminophen Miscellaneous Test Crossmatch 03/30/19 03/30/19 03/30/19 12:57 12:57 12:57 WBC RBC Hgb Hct MCV MCH MCHC RDW Plt Count [place] % (Auto) Lymph # Seg Neuts % (Manual) Lymphocytes % (Manual) Nucleated RBC % Seg Neutrophils # Man Lymphocytes # (Manual) Monocytes # (Manual) PT 21.0 H INR 1.86 H APTT D-Dimer POC ABG pH ABG pH POC ABG pO2 ABG pO2 ABG HCO3 ABG O2 Saturation ABG Base Excess ABG Hemoglobin VBG pH Oxyhemoglobin Sodium Potassium Chloride Carbon Dioxide BUN Creatinine Glucose POC Glucose Lactic Acid 9.00 H* Calcium Phosphorus Magnesium Iron TIBC Direct Bilirubin AST ALT Alkaline Phosphatase Total Creatine Kinase CK-MB (CK-2) C-Reactive Protein 2.40 H Total Protein Albumin Vitamin B12 Salicylates Acetaminophen Miscellaneous Test Crossmatch 03/30/19 03/30/19 03/30/19 13:23 14:00 14:47 WBC RBC Hgb Hct MCV MCH MCHC RDW Plt Count [place] % (Auto) Lymph # Seg Neuts % (Manual) Lymphocytes % (Manual) Nucleated RBC % Seg Neutrophils # Man Lymphocytes # (Manual) Monocytes # (Manual) PT INR APTT D-Dimer POC ABG pH ABG pH POC ABG pO2 ABG pO2 ABG HCO3 ABG O2 Saturation ABG Base Excess ABG Hemoglobin VBG pH Oxyhemoglobin Sodium Potassium Chloride Carbon Dioxide BUN Creatinine Glucose POC Glucose 176 H 245 H Lactic Acid Calcium Phosphorus Magnesium Iron TIBC Direct Bilirubin AST ALT Alkaline Phosphatase Total Creatine Kinase CK-MB (CK-2) C-Reactive Protein Total Protein Albumin Vitamin B12 Salicylates Acetaminophen Miscellaneous Test Flexitest 1 H Crossmatch 03/30/19 03/30/19 03/30/19 16:11 17:11 17:46 WBC RBC Hgb Hct MCV MCH MCHC RDW Plt Count [place] % (Auto) Lymph # Seg Neuts % (Manual) Lymphocytes % (Manual) Nucleated RBC % Seg Neutrophils # Man Lymphocytes # (Manual) Monocytes # (Manual) PT INR APTT D-Dimer POC ABG pH ABG pH POC ABG pO2 ABG pO2 ABG HCO3 ABG O2 Saturation ABG Base Excess ABG Hemoglobin VBG pH Oxyhemoglobin Sodium Potassium Chloride Carbon Dioxide BUN Creatinine Glucose POC Glucose 181 H 167 H 125 H Lactic Acid Calcium Phosphorus Magnesium Iron TIBC Direct Bilirubin AST ALT Alkaline Phosphatase Total Creatine Kinase CK-MB (CK-2) C-Reactive Protein Total Protein Albumin Vitamin B12 Salicylates Acetaminophen Miscellaneous Test Crossmatch 03/30/19 03/30/19 03/30/19 18:59 21:31 22:19 WBC RBC Hgb Hct MCV MCH MCHC RDW Plt Count [place] % (Auto) Lymph # Seg Neuts % (Manual) Lymphocytes % (Manual) Nucleated RBC % Seg Neutrophils # Man Lymphocytes # (Manual) Monocytes # (Manual) PT INR APTT D-Dimer POC ABG pH ABG pH POC ABG pO2 ABG pO2 ABG HCO3 ABG O2 Saturation ABG Base Excess ABG Hemoglobin VBG pH Oxyhemoglobin Sodium Potassium Chloride Carbon Dioxide BUN Creatinine Glucose POC Glucose 140 H 166 H 115 H Lactic Acid Calcium Phosphorus Magnesium Iron TIBC Direct Bilirubin AST ALT Alkaline Phosphatase Total Creatine Kinase CK-MB (CK-2) C-Reactive Protein Total Protein Albumin Vitamin B12 Salicylates Acetaminophen Miscellaneous Test Crossmatch 03/30/19 03/30/19 03/30/19 23:13 Unknown Unknown WBC RBC Hgb Hct MCV MCH MCHC RDW Plt Count [place] % (Auto) Lymph # Seg Neuts % (Manual) Lymphocytes % (Manual) Nucleated RBC % Seg Neutrophils # Man Lymphocytes # (Manual) Monocytes # (Manual) PT INR APTT D-Dimer POC ABG pH ABG pH POC ABG pO2 ABG pO2 47.8 L ABG HCO3 18.8 L ABG O2 Saturation 83.8 L ABG Base Excess -5.4 L ABG Hemoglobin 6.8 L VBG pH Oxyhemoglobin 81.8 L Sodium 157 H Potassium 3.3 L Chloride 117.9 H Carbon Dioxide 20 L BUN 36 H Creatinine Glucose 150 H POC Glucose 112 H Lactic Acid Calcium 7.2 L Phosphorus Magnesium Iron TIBC Direct Bilirubin AST ALT Alkaline Phosphatase Total Creatine Kinase CK-MB (CK-2) C-Reactive Protein Total Protein Albumin Vitamin B12 Salicylates Acetaminophen Miscellaneous Test Crossmatch 03/30/19 03/30/19 03/31/19 Unknown Unknown 00:03 WBC RBC Hgb Hct MCV MCH MCHC RDW Plt Count [place] % (Auto) Lymph # Seg Neuts % (Manual) Lymphocytes % (Manual) Nucleated RBC % Seg Neutrophils # Man Lymphocytes # (Manual) Monocytes # (Manual) PT INR APTT D-Dimer POC ABG pH ABG pH POC ABG pO2 ABG pO2 ABG HCO3 ABG O2 Saturation ABG Base Excess ABG Hemoglobin VBG pH Oxyhemoglobin Sodium Potassium Chloride Carbon Dioxide BUN Creatinine Glucose POC Glucose 188 H Lactic Acid Calcium Phosphorus Magnesium Iron TIBC Direct Bilirubin AST ALT Alkaline Phosphatase Total Creatine Kinase CK-MB (CK-2) C-Reactive Protein Total Protein Albumin Vitamin B12 Salicylates 0.8 L Acetaminophen < 5.0 L Miscellaneous Test Crossmatch 03/31/19 03/31/19 03/31/19 01:18 03:07 03:50 WBC RBC Hgb Hct MCV MCH MCHC RDW Plt Count [place] % (Auto) Lymph # Seg Neuts % (Manual) Lymphocytes % (Manual) Nucleated RBC % Seg Neutrophils # Man Lymphocytes # (Manual) Monocytes # (Manual) PT INR APTT D-Dimer POC ABG pH ABG pH 7.525 H POC ABG pO2 ABG pO2 178.0 H ABG HCO3 19.5 L ABG O2 Saturation 99.2 H ABG Base Excess -3.1 L ABG Hemoglobin 5.8 L VBG pH Oxyhemoglobin Sodium Potassium Chloride Carbon Dioxide BUN Creatinine Glucose POC Glucose 114 H 107 H Lactic Acid Calcium Phosphorus Magnesium Iron TIBC Direct Bilirubin AST ALT Alkaline Phosphatase Total Creatine Kinase CK-MB (CK-2) C-Reactive Protein Total Protein Albumin Vitamin B12 Salicylates Acetaminophen Miscellaneous Test Crossmatch 03/31/19 03/31/19 03/31/19 03:51 03:51 04:05 WBC RBC 1.89 L Hgb 6.1 L Hct 18.2 L* MCV MCH MCHC RDW 17.7 H Plt Count 89 L [place] % (Auto) Lymph # Seg Neuts % (Manual) 86.0 H Lymphocytes % (Manual) 10.0 L Nucleated RBC % 1.0 H Seg Neutrophils # Man Lymphocytes # (Manual) 0.7 L Monocytes # (Manual) PT INR APTT D-Dimer POC ABG pH ABG pH POC ABG pO2 ABG pO2 ABG HCO3 ABG O2 Saturation ABG Base Excess ABG Hemoglobin VBG pH Oxyhemoglobin Sodium 151 H Potassium 3.2 L Chloride 119.4 H Carbon Dioxide 17 L BUN 35 H Creatinine Glucose 139 H POC Glucose 153 H Lactic Acid Calcium 7.1 L Phosphorus Magnesium Iron TIBC Direct Bilirubin AST ALT Alkaline Phosphatase Total Creatine Kinase CK-MB (CK-2) C-Reactive Protein Total Protein Albumin Vitamin B12 Salicylates Acetaminophen Miscellaneous Test Crossmatch 03/31/19 03/31/19 03/31/19 05:05 05:35 06:23 WBC RBC Hgb Hct MCV MCH MCHC RDW Plt Count [place] % (Auto) Lymph # Seg Neuts % (Manual) Lymphocytes % (Manual) Nucleated RBC % Seg Neutrophils # Man Lymphocytes # (Manual) Monocytes # (Manual) PT INR APTT D-Dimer POC ABG pH ABG pH POC ABG pO2 ABG pO2 ABG HCO3 ABG O2 Saturation ABG Base Excess ABG Hemoglobin VBG pH Oxyhemoglobin Sodium Potassium Chloride Carbon Dioxide BUN Creatinine Glucose POC Glucose 176 H 133 H Lactic Acid 3.20 H* Calcium Phosphorus Magnesium Iron TIBC Direct Bilirubin AST ALT Alkaline Phosphatase Total Creatine Kinase CK-MB (CK-2) C-Reactive Protein Total Protein Albumin Vitamin B12 Salicylates Acetaminophen Miscellaneous Test Crossmatch 03/31/19 03/31/19 03/31/19 07:50 07:51 08:20 WBC RBC Hgb Hct MCV MCH MCHC RDW Plt Count [place] % (Auto) Lymph # Seg Neuts % (Manual) Lymphocytes % (Manual) Nucleated RBC % Seg Neutrophils # Man Lymphocytes # (Manual) Monocytes # (Manual) PT INR APTT D-Dimer POC ABG pH ABG pH POC ABG pO2 ABG pO2 ABG HCO3 ABG O2 Saturation ABG Base Excess ABG Hemoglobin VBG pH Oxyhemoglobin Sodium Potassium Chloride Carbon Dioxide BUN Creatinine Glucose POC Glucose 135 H Lactic Acid 3.30 H* Calcium Phosphorus Magnesium Iron 26 L TIBC 193 L Direct Bilirubin AST ALT Alkaline Phosphatase Total Creatine Kinase CK-MB (CK-2) C-Reactive Protein Total Protein Albumin Vitamin B12 Salicylates Acetaminophen Miscellaneous Test Crossmatch 03/31/19 03/31/19 03/31/19 08:20 08:20 09:06 WBC RBC Hgb Hct MCV MCH MCHC RDW Plt Count [place] % (Auto) Lymph # Seg Neuts % (Manual) Lymphocytes % (Manual) Nucleated RBC % Seg Neutrophils # Man Lymphocytes # (Manual) Monocytes # (Manual) PT INR APTT D-Dimer POC ABG pH ABG pH POC ABG pO2 ABG pO2 ABG HCO3 ABG O2 Saturation ABG Base Excess ABG Hemoglobin VBG pH Oxyhemoglobin Sodium 153 H Potassium 3.0 L Chloride 118.9 H Carbon Dioxide 18 L BUN 37 H Creatinine Glucose 132 H POC Glucose 145 H Lactic Acid Calcium 7.1 L Phosphorus Magnesium Iron TIBC Direct Bilirubin AST ALT Alkaline Phosphatase Total Creatine Kinase CK-MB (CK-2) C-Reactive Protein Total Protein Albumin Vitamin B12 > 2000 H Salicylates Acetaminophen Miscellaneous Test Crossmatch 03/31/19 03/31/19 03/31/19 10:47 11:49 13:04 WBC RBC Hgb Hct MCV MCH MCHC RDW Plt Count [place] % (Auto) Lymph # Seg Neuts % (Manual) Lymphocytes % (Manual) Nucleated RBC % Seg Neutrophils # Man Lymphocytes # (Manual) Monocytes # (Manual) PT INR APTT D-Dimer POC ABG pH ABG pH POC ABG pO2 ABG pO2 ABG HCO3 ABG O2 Saturation ABG Base Excess ABG Hemoglobin VBG pH Oxyhemoglobin Sodium Potassium Chloride Carbon Dioxide BUN Creatinine Glucose POC Glucose 153 H 174 H 214 H Lactic Acid Calcium Phosphorus Magnesium Iron TIBC Direct Bilirubin AST ALT Alkaline Phosphatase Total Creatine Kinase CK-MB (CK-2) C-Reactive Protein Total Protein Albumin Vitamin B12 Salicylates Acetaminophen Miscellaneous Test Crossmatch 03/31/19 03/31/19 03/31/19 13:42 15:08 16:08 WBC RBC Hgb Hct MCV MCH MCHC RDW Plt Count [place] % (Auto) Lymph # Seg Neuts % (Manual) Lymphocytes % (Manual) Nucleated RBC % Seg Neutrophils # Man Lymphocytes # (Manual) Monocytes # (Manual) PT INR APTT D-Dimer POC ABG pH ABG pH POC ABG pO2 ABG pO2 ABG HCO3 ABG O2 Saturation ABG Base Excess ABG Hemoglobin VBG pH Oxyhemoglobin Sodium Potassium Chloride Carbon Dioxide BUN Creatinine Glucose POC Glucose 186 H 136 H 150 H Lactic Acid Calcium Phosphorus Magnesium Iron TIBC Direct Bilirubin AST ALT Alkaline Phosphatase Total Creatine Kinase CK-MB (CK-2) C-Reactive Protein Total Protein Albumin Vitamin B12 Salicylates Acetaminophen Miscellaneous Test Crossmatch 03/31/19 03/31/19 03/31/19 17:11 17:30 17:30 WBC RBC Hgb 7.7 L Hct 23.0 L MCV MCH MCHC RDW Plt Count [place] % (Auto) Lymph # Seg Neuts % (Manual) Lymphocytes % (Manual) Nucleated RBC % Seg Neutrophils # Man Lymphocytes # (Manual) Monocytes # (Manual) PT INR APTT D-Dimer POC ABG pH ABG pH POC ABG pO2 ABG pO2 ABG HCO3 ABG O2 Saturation ABG Base Excess ABG Hemoglobin VBG pH Oxyhemoglobin Sodium 153 H Potassium 3.5 L Chloride 119.3 H Carbon Dioxide 20 L BUN 34 H Creatinine Glucose 162 H POC Glucose 140 H Lactic Acid Calcium 7.6 L Phosphorus Magnesium Iron TIBC Direct Bilirubin AST ALT Alkaline Phosphatase Total Creatine Kinase CK-MB (CK-2) C-Reactive Protein Total Protein Albumin Vitamin B12 Salicylates Acetaminophen Miscellaneous Test Crossmatch 03/31/19 03/31/19 03/31/19 17:59 18:58 20:28 WBC RBC Hgb Hct MCV MCH MCHC RDW Plt Count [place] % (Auto) Lymph # Seg Neuts % (Manual) Lymphocytes % (Manual) Nucleated RBC % Seg Neutrophils # Man Lymphocytes # (Manual) Monocytes # (Manual) PT INR APTT D-Dimer POC ABG pH ABG pH POC ABG pO2 ABG pO2 ABG HCO3 ABG O2 Saturation ABG Base Excess ABG Hemoglobin VBG pH Oxyhemoglobin Sodium Potassium Chloride Carbon Dioxide BUN Creatinine Glucose POC Glucose 156 H 152 H 138 H Lactic Acid Calcium Phosphorus Magnesium Iron TIBC Direct Bilirubin AST ALT Alkaline Phosphatase Total Creatine Kinase CK-MB (CK-2) C-Reactive Protein Total Protein Albumin Vitamin B12 Salicylates Acetaminophen Miscellaneous Test Crossmatch 03/31/19 03/31/19 03/31/19 21:09 22:15 23:10 WBC RBC Hgb Hct MCV MCH MCHC RDW Plt Count [place] % (Auto) Lymph # Seg Neuts % (Manual) Lymphocytes % (Manual) Nucleated RBC % Seg Neutrophils # Man Lymphocytes # (Manual) Monocytes # (Manual) PT INR APTT D-Dimer POC ABG pH ABG pH POC ABG pO2 ABG pO2 ABG HCO3 ABG O2 Saturation ABG Base Excess ABG Hemoglobin VBG pH Oxyhemoglobin Sodium Potassium Chloride Carbon Dioxide BUN Creatinine Glucose POC Glucose 136 H 137 H 148 H Lactic Acid Calcium Phosphorus Magnesium Iron TIBC Direct Bilirubin AST ALT Alkaline Phosphatase Total Creatine Kinase CK-MB (CK-2) C-Reactive Protein Total Protein Albumin Vitamin B12 Salicylates Acetaminophen Miscellaneous Test Crossmatch 04/01/19 04/01/19 04/01/19 00:05 01:17 02:11 WBC RBC Hgb Hct MCV MCH MCHC RDW Plt Count [place] % (Auto) Lymph # Seg Neuts % (Manual) Lymphocytes % (Manual) Nucleated RBC % Seg Neutrophils # Man Lymphocytes # (Manual) Monocytes # (Manual) PT INR APTT D-Dimer POC ABG pH ABG pH POC ABG pO2 ABG pO2 ABG HCO3 ABG O2 Saturation ABG Base Excess ABG Hemoglobin VBG pH Oxyhemoglobin Sodium Potassium Chloride Carbon Dioxide BUN Creatinine Glucose POC Glucose 143 H 151 H 155 H Lactic Acid Calcium Phosphorus Magnesium Iron TIBC Direct Bilirubin AST ALT Alkaline Phosphatase Total Creatine Kinase CK-MB (CK-2) C-Reactive Protein Total Protein Albumin Vitamin B12 Salicylates Acetaminophen Miscellaneous Test Crossmatch 04/01/19 04/01/19 04/01/19 03:12 04:03 04:16 WBC RBC Hgb Hct MCV MCH MCHC RDW Plt Count [place] % (Auto) Lymph # Seg Neuts % (Manual) Lymphocytes % (Manual) Nucleated RBC % Seg Neutrophils # Man Lymphocytes # (Manual) Monocytes # (Manual) PT INR APTT D-Dimer POC ABG pH ABG pH POC ABG pO2 ABG pO2 ABG HCO3 ABG O2 Saturation ABG Base Excess ABG Hemoglobin VBG pH Oxyhemoglobin Sodium Potassium Chloride Carbon Dioxide BUN Creatinine Glucose POC Glucose 140 H 143 H 142 H Lactic Acid Calcium Phosphorus Magnesium Iron TIBC Direct Bilirubin AST ALT Alkaline Phosphatase Total Creatine Kinase CK-MB (CK-2) C-Reactive Protein Total Protein Albumin Vitamin B12 Salicylates Acetaminophen Miscellaneous Test Crossmatch 04/01/19 04/01/19 04/01/19 05:01 05:01 05:08 WBC RBC 2.05 L Hgb 6.8 L Hct 20.5 L MCV 100 H MCH 33 H MCHC RDW 17.7 H Plt Count 53 L [place] % (Auto) Lymph # Seg Neuts % (Manual) 71.0 H Lymphocytes % (Manual) Nucleated RBC % Seg Neutrophils # Man Lymphocytes # (Manual) Monocytes # (Manual) PT INR APTT D-Dimer POC ABG pH ABG pH POC ABG pO2 ABG pO2 ABG HCO3 ABG O2 Saturation ABG Base Excess ABG Hemoglobin VBG pH Oxyhemoglobin Sodium Potassium Chloride Carbon Dioxide BUN Creatinine Glucose POC Glucose 119 H Lactic Acid Calcium Phosphorus Magnesium Iron TIBC Direct Bilirubin 0.3 H AST 4601 H ALT 1542 H Alkaline Phosphatase 185 H Total Creatine Kinase CK-MB (CK-2) C-Reactive Protein Total Protein 3.8 L Albumin 1.6 L Vitamin B12 Salicylates Acetaminophen Miscellaneous Test Crossmatch 04/01/19 04/01/19 04/01/19 05:23 06:37 08:15 WBC RBC Hgb Hct MCV MCH MCHC RDW Plt Count [place] % (Auto) Lymph # Seg Neuts % (Manual) Lymphocytes % (Manual) Nucleated RBC % Seg Neutrophils # Man Lymphocytes # (Manual) Monocytes # (Manual) PT INR APTT D-Dimer POC ABG pH ABG pH POC ABG pO2 ABG pO2 ABG HCO3 ABG O2 Saturation ABG Base Excess ABG Hemoglobin VBG pH Oxyhemoglobin Sodium Potassium Chloride Carbon Dioxide BUN Creatinine Glucose POC Glucose 115 H 124 H 138 H Lactic Acid Calcium Phosphorus Magnesium Iron TIBC Direct Bilirubin AST ALT Alkaline Phosphatase Total Creatine Kinase CK-MB (CK-2) C-Reactive Protein Total Protein Albumin Vitamin B12 Salicylates Acetaminophen Miscellaneous Test Crossmatch 04/01/19 04/01/19 04/01/19 09:50 10:10 10:31 WBC RBC Hgb 6.5 L Hct 19.2 L* MCV MCH MCHC RDW Plt Count [place] % (Auto) Lymph # Seg Neuts % (Manual) Lymphocytes % (Manual) Nucleated RBC % Seg Neutrophils # Man Lymphocytes # (Manual) Monocytes # (Manual) PT INR APTT D-Dimer POC ABG pH ABG pH POC ABG pO2 ABG pO2 ABG HCO3 ABG O2 Saturation ABG Base Excess ABG Hemoglobin VBG pH Oxyhemoglobin Sodium 149 H Potassium 3.5 L Chloride 119.9 H Carbon Dioxide 21 L BUN 33 H Creatinine 0.5 L Glucose 142 H POC Glucose 185 H Lactic Acid Calcium 7.3 L Phosphorus Magnesium Iron TIBC Direct Bilirubin AST 3686 H ALT 1440 H Alkaline Phosphatase 185 H Total Creatine Kinase CK-MB (CK-2) C-Reactive Protein Total Protein 3.7 L Albumin 1.8 L Vitamin B12 Salicylates Acetaminophen Miscellaneous Test Crossmatch 04/01/19 04/01/19 04/01/19 11:35 13:05 14:35 WBC RBC Hgb Hct MCV MCH MCHC RDW Plt Count [place] % (Auto) Lymph # Seg Neuts % (Manual) Lymphocytes % (Manual) Nucleated RBC % Seg Neutrophils # Man Lymphocytes # (Manual) Monocytes # (Manual) PT INR APTT D-Dimer POC ABG pH ABG pH POC ABG pO2 ABG pO2 ABG HCO3 ABG O2 Saturation ABG Base Excess ABG Hemoglobin VBG pH Oxyhemoglobin Sodium Potassium Chloride Carbon Dioxide BUN Creatinine Glucose POC Glucose 201 H 169 H 134 H Lactic Acid Calcium Phosphorus Magnesium Iron TIBC Direct Bilirubin AST ALT Alkaline Phosphatase Total Creatine Kinase CK-MB (CK-2) C-Reactive Protein Total Protein Albumin Vitamin B12 Salicylates Acetaminophen Miscellaneous Test Crossmatch 04/01/19 04/01/19 04/01/19 17:13 17:14 18:30 WBC RBC Hgb Hct MCV MCH MCHC RDW Plt Count [place] % (Auto) Lymph # Seg Neuts % (Manual) Lymphocytes % (Manual) Nucleated RBC % Seg Neutrophils # Man Lymphocytes # (Manual) Monocytes # (Manual) PT INR APTT D-Dimer 5203.68 H POC ABG pH ABG pH POC ABG pO2 ABG pO2 ABG HCO3 ABG O2 Saturation ABG Base Excess ABG Hemoglobin VBG pH Oxyhemoglobin Sodium Potassium Chloride Carbon Dioxide BUN Creatinine Glucose POC Glucose 69 L 128 H Lactic Acid Calcium Phosphorus Magnesium Iron TIBC Direct Bilirubin AST ALT Alkaline Phosphatase Total Creatine Kinase CK-MB (CK-2) C-Reactive Protein Total Protein Albumin Vitamin B12 Salicylates Acetaminophen Miscellaneous Test Crossmatch 04/01/19 04/01/19 04/02/19 22:50 Unknown 03:40 WBC RBC Hgb Hct MCV MCH MCHC RDW Plt Count [place] % (Auto) Lymph # Seg Neuts % (Manual) Lymphocytes % (Manual) Nucleated RBC % Seg Neutrophils # Man Lymphocytes # (Manual) Monocytes # (Manual) PT INR APTT D-Dimer POC ABG pH ABG pH POC ABG pO2 ABG pO2 78.3 L 142.8 H ABG HCO3 15.5 L ABG O2 Saturation ABG Base Excess -3.5 L -8.2 L ABG Hemoglobin 6.8 L 8.2 L VBG pH Oxyhemoglobin 94.3 L Sodium Potassium Chloride Carbon Dioxide BUN Creatinine Glucose POC Glucose 342 H Lactic Acid Calcium Phosphorus Magnesium Iron TIBC Direct Bilirubin AST ALT Alkaline Phosphatase Total Creatine Kinase CK-MB (CK-2) C-Reactive Protein Total Protein Albumin Vitamin B12 Salicylates Acetaminophen Miscellaneous Test Crossmatch 04/02/19 04/02/19 04/02/19 03:49 06:50 07:48 WBC RBC 2.65 L Hgb 8.6 L Hct 25.1 L MCV MCH MCHC RDW 17.6 H Plt Count 48 L [place] % (Auto) Lymph # Seg Neuts % (Manual) Lymphocytes % (Manual) Nucleated RBC % Seg Neutrophils # Man Lymphocytes # (Manual) Monocytes # (Manual) PT INR APTT D-Dimer POC ABG pH ABG pH POC ABG pO2 ABG pO2 ABG HCO3 ABG O2 Saturation ABG Base Excess ABG Hemoglobin VBG pH Oxyhemoglobin Sodium Potassium Chloride Carbon Dioxide BUN Creatinine Glucose POC Glucose 247 H 200 H Lactic Acid Calcium Phosphorus Magnesium Iron TIBC Direct Bilirubin AST ALT Alkaline Phosphatase Total Creatine Kinase CK-MB (CK-2) C-Reactive Protein Total Protein Albumin Vitamin B12 Salicylates Acetaminophen Miscellaneous Test Crossmatch 04/02/19 04/02/19 04/02/19 07:48 11:18 14:07 WBC RBC Hgb Hct MCV MCH MCHC RDW Plt Count [place] % (Auto) Lymph # Seg Neuts % (Manual) Lymphocytes % (Manual) Nucleated RBC % Seg Neutrophils # Man Lymphocytes # (Manual) Monocytes # (Manual) PT INR APTT D-Dimer POC ABG pH ABG pH POC ABG pO2 ABG pO2 ABG HCO3 ABG O2 Saturation ABG Base Excess ABG Hemoglobin VBG pH Oxyhemoglobin Sodium Potassium 3.5 L Chloride 115.7 H Carbon Dioxide 19 L BUN 29 H Creatinine 0.5 L Glucose 159 H POC Glucose 154 H 149 H Lactic Acid Calcium 7.5 L Phosphorus Magnesium Iron TIBC Direct Bilirubin AST 1418 H ALT 1134 H Alkaline Phosphatase 242 H Total Creatine Kinase CK-MB (CK-2) C-Reactive Protein Total Protein 4.2 L Albumin 2.1 L Vitamin B12 Salicylates Acetaminophen Miscellaneous Test Crossmatch 04/02/19 04/02/19 04/02/19 18:09 19:46 23:05 WBC RBC Hgb Hct MCV MCH MCHC RDW Plt Count [place] % (Auto) Lymph # Seg Neuts % (Manual) Lymphocytes % (Manual) Nucleated RBC % Seg Neutrophils # Man Lymphocytes # (Manual) Monocytes # (Manual) PT INR APTT D-Dimer POC ABG pH ABG pH POC ABG pO2 ABG pO2 ABG HCO3 ABG O2 Saturation ABG Base Excess ABG Hemoglobin VBG pH Oxyhemoglobin Sodium Potassium Chloride Carbon Dioxide BUN Creatinine Glucose POC Glucose 188 H 209 H 247 H Lactic Acid Calcium Phosphorus Magnesium Iron TIBC Direct Bilirubin AST ALT Alkaline Phosphatase Total Creatine Kinase CK-MB (CK-2) C-Reactive Protein Total Protein Albumin Vitamin B12 Salicylates Acetaminophen Miscellaneous Test Crossmatch 04/03/19 04/03/19 04/03/19 02:58 03:40 03:40 WBC RBC 2.87 L Hgb 9.3 L Hct 27.0 L MCV MCH MCHC RDW 17.2 H Plt Count 65 L [place] % (Auto) 9.8 H Lymph # 1.1 L Seg Neuts % (Manual) Lymphocytes % (Manual) Nucleated RBC % Seg Neutrophils # Man Lymphocytes # (Manual) Monocytes # (Manual) PT INR APTT D-Dimer POC ABG pH ABG pH POC ABG pO2 ABG pO2 ABG HCO3 ABG O2 Saturation ABG Base Excess ABG Hemoglobin VBG pH Oxyhemoglobin Sodium 147 H Potassium 3.5 L Chloride 116.7 H Carbon Dioxide 18 L BUN Creatinine 0.4 L Glucose 150 H POC Glucose 166 H Lactic Acid Calcium 8.1 L Phosphorus 2.20 L Magnesium Iron TIBC Direct Bilirubin AST 594 H ALT 861 H Alkaline Phosphatase 299 H Total Creatine Kinase CK-MB (CK-2) C-Reactive Protein Total Protein 4.4 L Albumin 2.1 L Vitamin B12 Salicylates Acetaminophen Miscellaneous Test Crossmatch 04/03/19 04/03/19 04/03/19 05:35 07:02 08:23 WBC RBC Hgb Hct MCV MCH MCHC RDW Plt Count [place] % (Auto) Lymph # Seg Neuts % (Manual) Lymphocytes % (Manual) Nucleated RBC % Seg Neutrophils # Man Lymphocytes # (Manual) Monocytes # (Manual) PT INR APTT D-Dimer POC ABG pH ABG pH POC ABG pO2 ABG pO2 97.7 H ABG HCO3 19.3 L ABG O2 Saturation ABG Base Excess -5.0 L ABG Hemoglobin 8.0 L VBG pH Oxyhemoglobin Sodium Potassium Chloride Carbon Dioxide BUN Creatinine Glucose POC Glucose 135 H 132 H Lactic Acid Calcium Phosphorus Magnesium Iron TIBC Direct Bilirubin AST ALT Alkaline Phosphatase Total Creatine Kinase CK-MB (CK-2) C-Reactive Protein Total Protein Albumin Vitamin B12 Salicylates Acetaminophen Miscellaneous Test Crossmatch 04/03/19 04/03/19 04/03/19 11:58 15:11 17:53 WBC RBC Hgb Hct MCV MCH MCHC RDW Plt Count [place] % (Auto) Lymph # Seg Neuts % (Manual) Lymphocytes % (Manual) Nucleated RBC % Seg Neutrophils # Man Lymphocytes # (Manual) Monocytes # (Manual) PT INR APTT D-Dimer POC ABG pH ABG pH POC ABG pO2 ABG pO2 ABG HCO3 ABG O2 Saturation ABG Base Excess ABG Hemoglobin VBG pH Oxyhemoglobin Sodium Potassium Chloride Carbon Dioxide BUN Creatinine Glucose POC Glucose 179 H 213 H 223 H Lactic Acid Calcium Phosphorus Magnesium Iron TIBC Direct Bilirubin AST ALT Alkaline Phosphatase Total Creatine Kinase CK-MB (CK-2) C-Reactive Protein Total Protein Albumin Vitamin B12 Salicylates Acetaminophen Miscellaneous Test Crossmatch 04/03/19 04/04/19 04/04/19 23:06 02:36 06:41 WBC RBC Hgb Hct MCV MCH MCHC RDW Plt Count [place] % (Auto) Lymph # Seg Neuts % (Manual) Lymphocytes % (Manual) Nucleated RBC % Seg Neutrophils # Man Lymphocytes # (Manual) Monocytes # (Manual) PT INR APTT D-Dimer POC ABG pH ABG pH POC ABG pO2 ABG pO2 ABG HCO3 ABG O2 Saturation ABG Base Excess ABG Hemoglobin VBG pH Oxyhemoglobin Sodium Potassium Chloride Carbon Dioxide BUN Creatinine Glucose POC Glucose 189 H 157 H 131 H Lactic Acid Calcium Phosphorus Magnesium Iron TIBC Direct Bilirubin AST ALT Alkaline Phosphatase Total Creatine Kinase CK-MB (CK-2) C-Reactive Protein Total Protein Albumin Vitamin B12 Salicylates Acetaminophen Miscellaneous Test Crossmatch 04/04/19 04/04/19 04/04/19 11:42 15:45 18:21 WBC RBC Hgb Hct MCV MCH MCHC RDW Plt Count [place] % (Auto) Lymph # Seg Neuts % (Manual) Lymphocytes % (Manual) Nucleated RBC % Seg Neutrophils # Man Lymphocytes # (Manual) Monocytes # (Manual) PT INR APTT D-Dimer POC ABG pH ABG pH POC ABG pO2 ABG pO2 ABG HCO3 ABG O2 Saturation ABG Base Excess ABG Hemoglobin VBG pH Oxyhemoglobin Sodium Potassium Chloride Carbon Dioxide BUN Creatinine Glucose POC Glucose 233 H 236 H 255 H Lactic Acid Calcium Phosphorus Magnesium Iron TIBC Direct Bilirubin AST ALT Alkaline Phosphatase Total Creatine Kinase CK-MB (CK-2) C-Reactive Protein Total Protein Albumin Vitamin B12 Salicylates Acetaminophen Miscellaneous Test Crossmatch 04/04/19 04/05/19 04/05/19 21:21 03:06 06:05 WBC RBC 2.68 L Hgb 8.5 L Hct 26.3 L MCV 98 H MCH MCHC RDW 17.4 H Plt Count [place] % (Auto) Lymph # Seg Neuts % (Manual) Lymphocytes % (Manual) Nucleated RBC % Seg Neutrophils # Man Lymphocytes # (Manual) Monocytes # (Manual) PT INR APTT D-Dimer POC ABG pH ABG pH POC ABG pO2 ABG pO2 ABG HCO3 ABG O2 Saturation ABG Base Excess ABG Hemoglobin VBG pH Oxyhemoglobin Sodium Potassium Chloride Carbon Dioxide BUN Creatinine Glucose POC Glucose 132 H 161 H Lactic Acid Calcium Phosphorus Magnesium Iron TIBC Direct Bilirubin AST ALT Alkaline Phosphatase Total Creatine Kinase CK-MB (CK-2) C-Reactive Protein Total Protein Albumin Vitamin B12 Salicylates Acetaminophen Miscellaneous Test Crossmatch 04/05/19 04/05/19 04/05/19 06:05 06:49 10:23 WBC RBC Hgb Hct MCV MCH MCHC RDW Plt Count [place] % (Auto) Lymph # Seg Neuts % (Manual) Lymphocytes % (Manual) Nucleated RBC % Seg Neutrophils # Man Lymphocytes # (Manual) Monocytes # (Manual) PT INR APTT D-Dimer POC ABG pH ABG pH POC ABG pO2 ABG pO2 ABG HCO3 ABG O2 Saturation ABG Base Excess ABG Hemoglobin VBG pH Oxyhemoglobin Sodium Potassium Chloride 112.5 H Carbon Dioxide BUN Creatinine 0.2 L Glucose 237 H POC Glucose 283 H 296 H Lactic Acid Calcium 7.9 L Phosphorus Magnesium Iron TIBC Direct Bilirubin AST ALT Alkaline Phosphatase Total Creatine Kinase CK-MB (CK-2) C-Reactive Protein Total Protein Albumin Vitamin B12 Salicylates Acetaminophen Miscellaneous Test Crossmatch 04/05/19 04/05/19 04/05/19 14:46 18:19 20:35 WBC RBC Hgb Hct MCV MCH MCHC RDW Plt Count [place] % (Auto) Lymph # Seg Neuts % (Manual) Lymphocytes % (Manual) Nucleated RBC % Seg Neutrophils # Man Lymphocytes # (Manual) Monocytes # (Manual) PT INR APTT D-Dimer POC ABG pH ABG pH POC ABG pO2 ABG pO2 ABG HCO3 ABG O2 Saturation ABG Base Excess ABG Hemoglobin VBG pH Oxyhemoglobin Sodium Potassium Chloride Carbon Dioxide BUN Creatinine Glucose POC Glucose 225 H 259 H 236 H Lactic Acid Calcium Phosphorus Magnesium Iron TIBC Direct Bilirubin AST ALT Alkaline Phosphatase Total Creatine Kinase CK-MB (CK-2) C-Reactive Protein Total Protein Albumin Vitamin B12 Salicylates Acetaminophen Miscellaneous Test Crossmatch 04/05/19 04/06/19 04/06/19 23:11 00:06 03:14 WBC RBC Hgb Hct MCV MCH MCHC RDW Plt Count [place] % (Auto) Lymph # Seg Neuts % (Manual) Lymphocytes % (Manual) Nucleated RBC % Seg Neutrophils # Man Lymphocytes # (Manual) Monocytes # (Manual) PT INR APTT D-Dimer 4526.86 H POC ABG pH ABG pH POC ABG pO2 ABG pO2 ABG HCO3 ABG O2 Saturation ABG Base Excess ABG Hemoglobin VBG pH Oxyhemoglobin Sodium Potassium Chloride Carbon Dioxide BUN Creatinine Glucose POC Glucose 205 H 228 H Lactic Acid Calcium Phosphorus Magnesium Iron TIBC Direct Bilirubin AST ALT Alkaline Phosphatase Total Creatine Kinase CK-MB (CK-2) C-Reactive Protein Total Protein Albumin Vitamin B12 Salicylates Acetaminophen Miscellaneous Test Crossmatch 04/06/19 04/06/19 04/06/19 05:20 05:20 07:57 WBC 15.1 H RBC 2.90 L Hgb 9.1 L Hct 28.0 L MCV MCH MCHC RDW 17.3 H Plt Count [place] % (Auto) Lymph # Seg Neuts % (Manual) Lymphocytes % (Manual) Nucleated RBC % Seg Neutrophils # Man Lymphocytes # (Manual) Monocytes # (Manual) PT INR APTT D-Dimer POC ABG pH ABG pH POC ABG pO2 ABG pO2 ABG HCO3 ABG O2 Saturation ABG Base Excess ABG Hemoglobin VBG pH Oxyhemoglobin Sodium Potassium Chloride Carbon Dioxide BUN Creatinine 0.2 L Glucose 161 H POC Glucose 191 H Lactic Acid Calcium 8.0 L Phosphorus Magnesium Iron TIBC Direct Bilirubin AST ALT Alkaline Phosphatase Total Creatine Kinase CK-MB (CK-2) C-Reactive Protein Total Protein Albumin Vitamin B12 Salicylates Acetaminophen Miscellaneous Test Crossmatch 04/06/19 04/06/19 04/06/19 12:09 18:24 22:07 WBC RBC Hgb Hct MCV MCH MCHC RDW Plt Count [place] % (Auto) Lymph # Seg Neuts % (Manual) Lymphocytes % (Manual) Nucleated RBC % Seg Neutrophils # Man Lymphocytes # (Manual) Monocytes # (Manual) PT INR APTT D-Dimer POC ABG pH ABG pH POC ABG pO2 ABG pO2 ABG HCO3 ABG O2 Saturation ABG Base Excess ABG Hemoglobin VBG pH Oxyhemoglobin Sodium Potassium Chloride Carbon Dioxide BUN Creatinine Glucose POC Glucose 143 H 161 H 140 H Lactic Acid Calcium Phosphorus Magnesium Iron TIBC Direct Bilirubin AST ALT Alkaline Phosphatase Total Creatine Kinase CK-MB (CK-2) C-Reactive Protein Total Protein Albumin Vitamin B12 Salicylates Acetaminophen Miscellaneous Test Crossmatch 04/07/19 04/07/19 04/07/19 03:00 04:30 04:30 WBC 13.0 H RBC 2.65 L Hgb 8.3 L Hct 25.5 L MCV MCH MCHC RDW 17.0 H Plt Count [place] % (Auto) Lymph # Seg Neuts % (Manual) Lymphocytes % (Manual) Nucleated RBC % Seg Neutrophils # Man Lymphocytes # (Manual) Monocytes # (Manual) PT INR APTT D-Dimer POC ABG pH ABG pH POC ABG pO2 ABG pO2 ABG HCO3 ABG O2 Saturation ABG Base Excess ABG Hemoglobin VBG pH Oxyhemoglobin Sodium Potassium Chloride Carbon Dioxide BUN Creatinine 0.2 L Glucose 208 H POC Glucose 224 H Lactic Acid Calcium 7.7 L Phosphorus Magnesium Iron TIBC Direct Bilirubin AST ALT Alkaline Phosphatase Total Creatine Kinase CK-MB (CK-2) C-Reactive Protein Total Protein Albumin Vitamin B12 Salicylates Acetaminophen Miscellaneous Test Crossmatch 04/07/19 04/07/19 04/07/19 05:47 08:27 10:33 WBC RBC Hgb Hct MCV MCH MCHC RDW Plt Count [place] % (Auto) Lymph # Seg Neuts % (Manual) Lymphocytes % (Manual) Nucleated RBC % Seg Neutrophils # Man Lymphocytes # (Manual) Monocytes # (Manual) PT INR APTT D-Dimer POC ABG pH ABG pH POC ABG pO2 ABG pO2 ABG HCO3 ABG O2 Saturation ABG Base Excess ABG Hemoglobin VBG pH Oxyhemoglobin Sodium Potassium Chloride Carbon Dioxide BUN Creatinine Glucose POC Glucose 225 H 176 H 207 H Lactic Acid Calcium Phosphorus Magnesium Iron TIBC Direct Bilirubin AST ALT Alkaline Phosphatase Total Creatine Kinase CK-MB (CK-2) C-Reactive Protein Total Protein Albumin Vitamin B12 Salicylates Acetaminophen Miscellaneous Test Crossmatch 04/07/19 04/07/19 04/07/19 14:13 18:32 22:42 WBC RBC Hgb Hct MCV MCH MCHC RDW Plt Count [place] % (Auto) Lymph # Seg Neuts % (Manual) Lymphocytes % (Manual) Nucleated RBC % Seg Neutrophils # Man Lymphocytes # (Manual) Monocytes # (Manual) PT INR APTT D-Dimer POC ABG pH ABG pH POC ABG pO2 ABG pO2 ABG HCO3 ABG O2 Saturation ABG Base Excess ABG Hemoglobin VBG pH Oxyhemoglobin Sodium Potassium Chloride Carbon Dioxide BUN Creatinine Glucose POC Glucose 219 H 227 H 238 H Lactic Acid Calcium Phosphorus Magnesium Iron TIBC Direct Bilirubin AST ALT Alkaline Phosphatase Total Creatine Kinase CK-MB (CK-2) C-Reactive Protein Total Protein Albumin Vitamin B12 Salicylates Acetaminophen Miscellaneous Test Crossmatch 04/08/19 04/08/19 04/08/19 02:31 05:37 14:10 WBC RBC Hgb Hct MCV MCH MCHC RDW Plt Count [place] % (Auto) Lymph # Seg Neuts % (Manual) Lymphocytes % (Manual) Nucleated RBC % Seg Neutrophils # Man Lymphocytes # (Manual) Monocytes # (Manual) PT INR APTT D-Dimer POC ABG pH ABG pH POC ABG pO2 ABG pO2 ABG HCO3 ABG O2 Saturation ABG Base Excess ABG Hemoglobin VBG pH Oxyhemoglobin Sodium Potassium Chloride Carbon Dioxide BUN Creatinine Glucose POC Glucose 194 H 194 H 139 H Lactic Acid Calcium Phosphorus Magnesium Iron TIBC Direct Bilirubin AST ALT Alkaline Phosphatase Total Creatine Kinase CK-MB (CK-2) C-Reactive Protein Total Protein Albumin Vitamin B12 Salicylates Acetaminophen Miscellaneous Test Crossmatch 04/08/19 04/08/19 04/09/19 17:43 23:20 03:28 WBC RBC Hgb Hct MCV MCH MCHC RDW Plt Count [place] % (Auto) Lymph # Seg Neuts % (Manual) Lymphocytes % (Manual) Nucleated RBC % Seg Neutrophils # Man Lymphocytes # (Manual) Monocytes # (Manual) PT INR APTT D-Dimer POC ABG pH ABG pH POC ABG pO2 ABG pO2 ABG HCO3 ABG O2 Saturation ABG Base Excess ABG Hemoglobin VBG pH Oxyhemoglobin Sodium Potassium Chloride Carbon Dioxide BUN Creatinine Glucose POC Glucose 261 H 277 H 301 H Lactic Acid Calcium Phosphorus Magnesium Iron TIBC Direct Bilirubin AST ALT Alkaline Phosphatase Total Creatine Kinase CK-MB (CK-2) C-Reactive Protein Total Protein Albumin Vitamin B12 Salicylates Acetaminophen Miscellaneous Test Crossmatch 04/09/19 04/09/19 04/09/19 05:35 05:35 05:35 WBC RBC 2.78 L Hgb 9.0 L Hct 26.7 L MCV MCH MCHC RDW 17.0 H Plt Count [place] % (Auto) Lymph # Seg Neuts % (Manual) Lymphocytes % (Manual) Nucleated RBC % Seg Neutrophils # Man Lymphocytes # (Manual) Monocytes # (Manual) PT INR APTT D-Dimer POC ABG pH ABG pH POC ABG pO2 ABG pO2 ABG HCO3 ABG O2 Saturation ABG Base Excess ABG Hemoglobin VBG pH Oxyhemoglobin Sodium Potassium Chloride Carbon Dioxide 31 H BUN Creatinine 0.2 L Glucose 218 H POC Glucose 240 H Lactic Acid Calcium Phosphorus Magnesium Iron TIBC Direct Bilirubin AST ALT Alkaline Phosphatase Total Creatine Kinase CK-MB (CK-2) C-Reactive Protein Total Protein Albumin Vitamin B12 Salicylates Acetaminophen Miscellaneous Test Crossmatch 04/09/19 04/09/19 04/09/19 09:01 12:23 17:33 WBC RBC Hgb Hct MCV MCH MCHC RDW Plt Count [place] % (Auto) Lymph # Seg Neuts % (Manual) Lymphocytes % (Manual) Nucleated RBC % Seg Neutrophils # Man Lymphocytes # (Manual) Monocytes # (Manual) PT INR APTT D-Dimer POC ABG pH ABG pH POC ABG pO2 ABG pO2 ABG HCO3 ABG O2 Saturation ABG Base Excess ABG Hemoglobin VBG pH Oxyhemoglobin Sodium Potassium Chloride Carbon Dioxide BUN Creatinine Glucose POC Glucose 160 H 162 H 149 H Lactic Acid Calcium Phosphorus Magnesium Iron TIBC Direct Bilirubin AST ALT Alkaline Phosphatase Total Creatine Kinase CK-MB (CK-2) C-Reactive Protein Total Protein Albumin Vitamin B12 Salicylates Acetaminophen Miscellaneous Test Crossmatch 04/09/19 04/09/19 04/10/19 21:26 22:28 03:16 WBC RBC Hgb Hct MCV MCH MCHC RDW Plt Count [place] % (Auto) Lymph # Seg Neuts % (Manual) Lymphocytes % (Manual) Nucleated RBC % Seg Neutrophils # Man Lymphocytes # (Manual) Monocytes # (Manual) PT INR APTT D-Dimer POC ABG pH ABG pH POC ABG pO2 ABG pO2 ABG HCO3 ABG O2 Saturation ABG Base Excess ABG Hemoglobin VBG pH Oxyhemoglobin Sodium Potassium Chloride Carbon Dioxide BUN Creatinine Glucose POC Glucose 196 H 224 H 163 H Lactic Acid Calcium Phosphorus Magnesium Iron TIBC Direct Bilirubin AST ALT Alkaline Phosphatase Total Creatine Kinase CK-MB (CK-2) C-Reactive Protein Total Protein Albumin Vitamin B12 Salicylates Acetaminophen Miscellaneous Test Crossmatch 04/10/19 04/10/19 04/10/19 04:15 04:15 05:30 WBC RBC 2.88 L Hgb 9.2 L Hct 27.9 L MCV MCH MCHC RDW 17.0 H Plt Count 454 H [place] % (Auto) Lymph # Seg Neuts % (Manual) Lymphocytes % (Manual) Nucleated RBC % Seg Neutrophils # Man Lymphocytes # (Manual) Monocytes # (Manual) PT INR APTT D-Dimer POC ABG pH ABG pH POC ABG pO2 ABG pO2 ABG HCO3 ABG O2 Saturation ABG Base Excess ABG Hemoglobin VBG pH Oxyhemoglobin Sodium Potassium Chloride Carbon Dioxide 32 H BUN Creatinine 0.2 L Glucose 126 H POC Glucose 135 H Lactic Acid Calcium Phosphorus Magnesium Iron TIBC Direct Bilirubin AST ALT Alkaline Phosphatase Total Creatine Kinase CK-MB (CK-2) C-Reactive Protein Total Protein Albumin Vitamin B12 Salicylates Acetaminophen Miscellaneous Test Crossmatch 04/10/19 04/10/19 04/10/19 12:14 15:29 23:38 WBC RBC Hgb Hct MCV MCH MCHC RDW Plt Count [place] % (Auto) Lymph # Seg Neuts % (Manual) Lymphocytes % (Manual) Nucleated RBC % Seg Neutrophils # Man Lymphocytes # (Manual) Monocytes # (Manual) PT INR APTT D-Dimer POC ABG pH ABG pH POC ABG pO2 ABG pO2 ABG HCO3 ABG O2 Saturation ABG Base Excess ABG Hemoglobin VBG pH Oxyhemoglobin Sodium Potassium Chloride Carbon Dioxide BUN Creatinine Glucose POC Glucose 109 H 149 H 268 H Lactic Acid Calcium Phosphorus Magnesium Iron TIBC Direct Bilirubin AST ALT Alkaline Phosphatase Total Creatine Kinase CK-MB (CK-2) C-Reactive Protein Total Protein Albumin Vitamin B12 Salicylates Acetaminophen Miscellaneous Test Crossmatch 04/11/19 04/11/19 04/11/19 05:27 12:08 18:08 WBC RBC Hgb Hct MCV MCH MCHC RDW Plt Count [place] % (Auto) Lymph # Seg Neuts % (Manual) Lymphocytes % (Manual) Nucleated RBC % Seg Neutrophils # Man Lymphocytes # (Manual) Monocytes # (Manual) PT INR APTT D-Dimer POC ABG pH ABG pH POC ABG pO2 ABG pO2 ABG HCO3 ABG O2 Saturation ABG Base Excess ABG Hemoglobin VBG pH Oxyhemoglobin Sodium Potassium Chloride Carbon Dioxide BUN Creatinine Glucose POC Glucose 109 H 185 H 190 H Lactic Acid Calcium Phosphorus Magnesium Iron TIBC Direct Bilirubin AST ALT Alkaline Phosphatase Total Creatine Kinase CK-MB (CK-2) C-Reactive Protein Total Protein Albumin Vitamin B12 Salicylates Acetaminophen Miscellaneous Test Crossmatch 04/11/19 04/12/19 04/12/19 23:23 06:00 11:42 WBC RBC Hgb Hct MCV MCH MCHC RDW Plt Count [place] % (Auto) Lymph # Seg Neuts % (Manual) Lymphocytes % (Manual) Nucleated RBC % Seg Neutrophils # Man Lymphocytes # (Manual) Monocytes # (Manual) PT INR APTT D-Dimer POC ABG pH ABG pH POC ABG pO2 ABG pO2 ABG HCO3 ABG O2 Saturation ABG Base Excess ABG Hemoglobin VBG pH Oxyhemoglobin Sodium Potassium Chloride Carbon Dioxide BUN Creatinine Glucose POC Glucose 127 H 201 H 161 H Lactic Acid Calcium Phosphorus Magnesium Iron TIBC Direct Bilirubin AST ALT Alkaline Phosphatase Total Creatine Kinase CK-MB (CK-2) C-Reactive Protein Total Protein Albumin Vitamin B12 Salicylates Acetaminophen Miscellaneous Test Crossmatch 04/12/19 04/12/19 04/12/19 17:56 20:07 21:59 WBC RBC Hgb Hct MCV MCH MCHC RDW Plt Count [place] % (Auto) Lymph # Seg Neuts % (Manual) Lymphocytes % (Manual) Nucleated RBC % Seg Neutrophils # Man Lymphocytes # (Manual) Monocytes # (Manual) PT INR APTT D-Dimer POC ABG pH ABG pH POC ABG pO2 ABG pO2 ABG HCO3 ABG O2 Saturation ABG Base Excess ABG Hemoglobin VBG pH Oxyhemoglobin Sodium Potassium Chloride Carbon Dioxide BUN Creatinine Glucose POC Glucose 145 H 158 H 203 H Lactic Acid Calcium Phosphorus Magnesium Iron TIBC Direct Bilirubin AST ALT Alkaline Phosphatase Total Creatine Kinase CK-MB (CK-2) C-Reactive Protein Total Protein Albumin Vitamin B12 Salicylates Acetaminophen Miscellaneous Test Crossmatch 04/12/19 04/13/19 04/13/19 23:37 08:50 08:50 WBC 15.7 H RBC 3.12 L Hgb Hct 30.2 L MCV MCH 33 H MCHC RDW 18.0 H Plt Count 678 H [place] % (Auto) Lymph # Seg Neuts % (Manual) Lymphocytes % (Manual) Nucleated RBC % Seg Neutrophils # Man Lymphocytes # (Manual) Monocytes # (Manual) PT INR APTT D-Dimer POC ABG pH ABG pH POC ABG pO2 ABG pO2 ABG HCO3 ABG O2 Saturation ABG Base Excess ABG Hemoglobin VBG pH Oxyhemoglobin Sodium Potassium Chloride Carbon Dioxide BUN Creatinine < 0.2 L Glucose 46 L POC Glucose 238 H Lactic Acid Calcium Phosphorus Magnesium Iron TIBC Direct Bilirubin AST ALT Alkaline Phosphatase Total Creatine Kinase CK-MB (CK-2) C-Reactive Protein Total Protein Albumin Vitamin B12 Salicylates Acetaminophen Miscellaneous Test Crossmatch Chest x-ray: other (none today) Allied health notes reviewed: nursing
--- NOTE | 2019-04-13 11:24 | Progress Note ---
Assessment and Plan Cultures: 03/29 BCx: no growth 03/29 sputum Cx: C albicans 03/30/2019 MRSA nasal: negative A/P: 28 yo F PMHx T1DM admitted after receiving intubation and CPR due to non- responsiveness likely secondary to DKA 1. Sepsis - resolved. 2. Aspiration pneumonia - Procal elevated. Completed abx. Jenn in sputum culture not a pathogen of the respiratory tract. 3. Liver lesion - Unlikely abscess. Likely trauma related subcapsular hematoma on follow up CT imaging and discussion with radiology. Appreciate Gen. Surg eval as well. 4. DM-type 1, admitted with DKA 5. Head lice - s/p treatment x 3. 6. Acute encephalopathy: MRI showed anoxic brain injury. Guarded prognosis, now DNR. Recs: - continue off antibiotics - Leucocytosis and thrombocytosis are likely reactive from hepatic subcapsular hematoma - overall guarded prognosis Linda Norman MD FACP [facility] ([facility]) Subjective Date of service: 04/13/19 Principal diagnosis: Ac Hypoxemic Resp Failure; DKA; Severe sepsis with shock; ANGELICA Interval history: No fever. Remains intubated. Mental status is unchanged. Objective - Exam Narrative Exam: Physical Exam: Constitutional: Intubated, unresponsive Head, Ears, Nose: Normocephalic, atraumatic. External ears, nose normal Eyes: Conjunctivae/corneas clear. No icterus. No ptosis. Neck: Supple, no meningeal signs. Intubated Oral: intubated Cardiovascular: S1, S2 normal. Respiratory: Good air entry, clear to auscultation bilaterally GI: Soft, non-tender; bowel sounds normal. Musculoskeletal: No pedal edema, no cyanosis. Skin: No rash or abscess Hem/Lymphatic: No palpable cervical or supraclavicular nodes. No lymphangitis Psych: unresponsive Neurological: Intubated, unresponsive. - Constitutional Vitals: Vital Signs Temp Pulse Resp BP Pulse Ox 97 F L 85 20 118/79 99 04/13/19 08:00 04/13/19 11:00 04/13/19 11:00 04/13/19 11:00 04/13/19 11:00 Temperature -Last 24 Hours Temperature 97 F Temperature 97.9 F Temperature 97.4 F Temperature 96.9 F Temperature 98 F Temperature 98.1 F Temperature 98.1 F - Labs CBC & Chem 7: 04/13/19 08:50 04/13/19 08:50 Labs: Abnormal lab results 04/12/19 04/12/19 04/12/19 Range/Units 11:42 17:56 20:07 WBC (4.5-11.0) K/mm3 RBC (3.65-5.03) M/mm3 Hct (30.3-42.9) % MCH (28-32) pg RDW (13.2-15.2) % Plt Count (140-440) K/mm3 Creatinine (0.7-1.2) mg/dL Glucose (65-100) mg/dL POC Glucose 161 H 145 H 158 H (70-105) 04/12/19 04/12/19 04/13/19 Range/Units 21:59 23:37 08:50 WBC 15.7 H (4.5-11.0) K/mm3 RBC 3.12 L (3.65-5.03) M/mm3 Hct 30.2 L (30.3-42.9) % MCH 33 H (28-32) pg RDW 18.0 H (13.2-15.2) % Plt Count 678 H (140-440) K/mm3 Creatinine (0.7-1.2) mg/dL Glucose (65-100) mg/dL POC Glucose 203 H 238 H (70-105) 04/13/19 Range/Units 08:50 WBC (4.5-11.0) K/mm3 RBC (3.65-5.03) M/mm3 Hct (30.3-42.9) % MCH (28-32) pg RDW (13.2-15.2) % Plt Count (140-440) K/mm3 Creatinine < 0.2 L (0.7-1.2) mg/dL Glucose 46 L (65-100) mg/dL POC Glucose (70-105)
[2019-04-13] MEDS: D50W (25GM) Syringe IV PRN ×2 (12:00→18:27)
[2019-04-13] MEDS ORDERED: DIPRIVAN 10 MG/ML IV ONE ×5 (12:36→20:28)
[2019-04-13] MEDS ORDERED: NACL 0.9% 1000 ML 1,000 ML ONE (12:43)
[2019-04-13] MEDS ORDERED: DIPRIVAN 10 MG/ML 1,000 MG/100 ML BOTTLE IV SCH (14:00)
--- NOTE | 2019-04-13 14:13 | Procedure Note ---
Date of procedure: 04/13/19 Pre-op diagnosis: respiratory failure Post-op diagnosis: same Procedure: Perc trach - Consent was on the chart. Time out was performed. Sterile prep and drape was done. Anesthesia was managed by anesthesia provider. Lidocaine was used to anesthetize an area about two finger breadths above the sternal notch. Transverse incision was made. Blunt dissection was carried down to trachea. Under bronchoscopic guidance, a finder needle was used to enter the trachea. Thereafter, the introducer needle was inserted. It was approximately at the second tracheal ring. Tract was dilated and tracheostomy tube was easily inserted. Balloon was inflated. Position was rechecked via bronchoscopy through the tracheostomy tube. We thought we were at least 3 cm above the melina. We had good inspiratory and expiratory volumes. CXR shows the tube to be going into the right mainstem. I confirmed this concern with Dr. Bravo (Radiology). We did not have any shorter tubes, but I was able to find a Bivona. I reassembled the team and we changed the Shiley 8 trach to a Bivona 7 XL. We did not have any other sizes. Timeout was called again. Dr. Pérez checked the position of the trach with bronchoscopy. The tip was indeed just into the right mainstem. Pt was positioned properly and meds were given by anesthesia provider. Vent tubing was disconnected and guidewire with white guide was inserted. The balloon was deflated and the trach was removed. The bovina was passed easily over the wire. Position was confirmed with bronchoscopy by Dr. Pérez. Patient now had equal breath sounds. The follow-up CXR showed the tube had advanced again down the right mainstem. I went back up to the bedside and found that her sats were in the low 90s/upper 80s. I called X-ray back and with multiple x-rays, I gradually kept pulling the tube back until we were clearly above the melina and we were beginning to re- insufflate the lung. Position was checked again with bronchoscopy. The sats were now steady at 100 and she had good air movement on exam. The flange was measured at 5cm above the skin level. It was sutured in place at that level. RT and nurse were advised to check this distance in case she desats again. As a courtesy, I phoned the mother at [phone] to update her on the day's events. She was appreciative. There were no apparent complications at the end of the case. Findings: normal anatomy Implants: 8 Shiley trach tube Anesthesia: MAC Surgeon: KAVITA GAFFNEY ([facility]) Estimated blood loss: minimal Pathology: none Condition: stable Disposition: ICU
--- NOTE | 2019-04-13 14:15 | Procedure Note ---
Date of procedure: 04/13/19 Pre-op diagnosis: VDRF Post-op diagnosis: same Procedure: Fiberoptic bronchoscopy Findings: Time out performed. Anesthesia administered. Fiberoptic bronchoscope passed through adaptor and into endotracheal tube and advanced into trachea. Trachea unremarkable. Endotracheal tube pulled back from 19cm to [address] Moore performed tracheostomy procedure. The procedure was performed under bronchoscopic guidance. The tracheostomy tube was seen entering the trachea and balloon inflated. Bronchoscope was withdrawn from ETT and passed into tracheostomy. No bleeding or secretions seen. Tracheostomy tube approx 3 cm from melina. Tracheostomy connected to vent and expiratory and inspiratory tidal volumes were satisfactory. Patient tolerated procedure well. Anesthesia: GETA Surgeon: RODOLFO AGUILERA Estimated blood loss: none Pathology: none Condition: stable Disposition: no change
--- NOTE | 2019-04-13 14:16 | Procedure Note ---
Date of procedure: 04/13/19 Pre-op diagnosis: VDRF Post-op diagnosis: same Procedure: PEG tube Findings: Time out performed at start of procedure. Bite block placed. Endoscope passed through mouth and into the esophagus. It was then advanced into the stomach. The stomach was insufflated and a site chosen for PEG placement. There was transillumination at the site which was several cm below costal margin. Skin was anesthetized and a 1 cm incision made in the skin using 11 blade. Needle was passed through skin and directly into stomach under direct visualization. Wire was passed into stomach and grasped with snare via endoscope. Endoscope was then withdrawn via mouth. The PEG was assembled and pulled through the mouth and into the stomach. The endoscope was once again passed into stomach and inner bumper seen to lay flush against stomach wall. The outer bumper was at 2cm at the skin. The remainder of the stomach was examined and unremarkable. The pylorus could not be entered despite multiple attempts. The stomach was desufflated and the scope withdrawn into esophagus. The esophagus was unremarkable. The scope was withdrawn. The PEG was assembled in the usual fashion and secured. The patient tolerated the procedure well. All sharps were disposed of appropriately. Anesthesia: MICHELINEA Surgeon: RODOLFO AGUILERA Ict Sales Assistant: KAVITA GAFFNEY (cosurgeon) Estimated blood loss: none Pathology: none Condition: stable Disposition: no change
[2019-04-13] MEDS ORDERED: PHENYLEPHRINE/NS Syringe 1,000 MCG/10 ML IV ONE (14:19)
--- NOTE | 2019-04-13 14:35 | Progress Note ---
Assessment and Plan Assessment and plan: Patient is 29 year old woman with a history of diabetes was brought to the emergency room following a cardiac arrest. Her last well-known time was 10:30 in the morning, she was traveling with a friend, she was unresponsive in the back seat. EMS was called, CPR was started and continued here in the emergency room. Patient was intubated in the ER, noted hypotensive started on dobutamine, epinephrine and Levophed drip, given IV fluids, found to be in DKA with BG ~2200, several metabolic derangements - placed on insulin drip and admitted to ICU. BP improved and she was weaned off pressors. Still intubated on vent, minimal response. patient has been in coma for several days, no improvement. She has a DNR status order. Acute respiratory failure s/p intubated, on vent - on vent, cont nebs, - Pulm following -surgery consulted for trach and peg TO BE DONE TODAY -Aspiration precautions -VAP bundle Acute anoxic encephalopathy, POA - from cardiac arrest - Neurology following -MR concerning for anoxic Brain injury Cardiac arrest s/p resuscitation - likely 2/2 severe hyperglycemia - preserved EF on 2D echo DKA, severe - BG was >2200 on admission - s/p insulin drip. cont iv fluid - monitor BG q4h, on TF and on subqu insulin - adjust dose as needed Shock hypotensive vs sepsis - Now off pressors. Was on vasopressin, Levophed, Phenylephrine Sepsis with possible aspiration PNA - evident on CXR on admission with left sided infiltrates - cont abx per ID - Competed abx - Abx discontnued following notatioon that no evidence of liver lesion not consistent with infection per ID -- Leucocytosis and thrombocytosis are likely reactive from hepatic subcapsular hematoma Head lice Permethin given isolation Acute renal failure, likely vasomotor nephropathy - resolved - cont iv fluid, monitor BMP Anemia, acute on chronic - no sign of blood loss s/p 2 Units PRBC transfused Hyperkalemia, resolved with fluid and insulin Hypernatremia Resolved hypokalemia, resolved Shock liver with elevated LFT and Coagulopathy - due to cardiac arrest and hypotension - cont to monitor Liver lesion ? abscess ID Physician following Discontinued abx, not consistent with infection as noted above Hypermagnesemia Hyperphosphatemia - cont to monitor, improved DVT Prophylaxis with Lovenox Poor prognosis discussed with mother at bedside. DNR status Mother has decided on DNR status The high probability of a clinically significant, sudden or life threatening deterioration of the [multiple] system(s) required my full and direct attention, intervention and personal management. The aggregate critical care time was [35] minutes. This time is in addition to time spent performing reported procedures but includes the following: [x] Data Review and interpretation [x] Patient assessment and monitoring of vital signs [x] Documentation [x] Medication orders and management History Interval history: Patient seen and examined, opens eyes spontaneously but remains unresponsive, on the vent Still intubated. No Fever. Patient is for Trach and peg today Hospitalist Physical - Physical exam Narrative exam: Gen: On full MVS and tolerating, intubated, HEENT: facial edema, atraumatic Neck: supple, no JVD Heart: S1 and S2 reg, no murmurs, rubs or gallop Lungs: Clear to auscultation, no rhonchi, no wheeze Abd: soft, non tender, non distended, normal BS, Ext: anasarca, leg edema, no cyanosis Neuro: Minimal responsive, does not follow commands, - Constitutional Vitals: Temp Pulse Resp BP Pulse Ox 97.4 F L 113 H 18 141/100 96 04/13/19 13:34 04/13/19 13:34 04/13/19 13:34 04/13/19 13:34 04/13/19 13:34 General appearance: Present: other (intubated) Results - Labs CBC & Chem 7: 04/13/19 08:50 04/13/19 08:50 Labs: Laboratory Last Values WBC 15.7 K/mm3 (4.5-11.0) H 04/13/19 08:50 RBC 3.12 M/mm3 (3.65-5.03) L 04/13/19 08:50 Hgb 10.1 gm/dl (10.1-14.3) 04/13/19 08:50 Hct 30.2 % (30.3-42.9) L 04/13/19 08:50 MCV 97 fl (79-97) 04/13/19 08:50 MCH 33 pg (28-32) H 04/13/19 08:50 MCHC 34 % (30-34) 04/13/19 08:50 RDW 18.0 % (13.2-15.2) H 04/13/19 08:50 Plt Count 678 K/mm3 (140-440) H 04/13/19 08:50 Lymph % (Auto) 16.9 % (13.4-35.0) 04/03/19 03:40 [place] % (Auto) 9.8 % (0.0-7.3) H 04/03/19 03:40 Eos % (Auto) 3.2 % (0.0-4.3) 04/03/19 03:40 Baso % (Auto) 0.4 % (0.0-1.8) 04/03/19 03:40 Lymph # 1.1 K/mm3 (1.2-5.4) L 04/03/19 03:40 [place] # 0.6 K/mm3 (0.0-0.8) 04/03/19 03:40 Eos # 0.2 K/mm3 (0.0-0.4) 04/03/19 03:40 Baso # 0.0 K/mm3 (0.0-0.1) 04/03/19 03:40 Add Manual Diff Complete 04/01/19 05:01 Total Counted 100 04/01/19 05:01 Seg Neutrophils % 69.7 % (40.0-70.0) 04/03/19 03:40 Seg Neuts % (Manual) 71.0 % (40.0-70.0) H 04/01/19 05:01 0 % 04/01/19 05:01 20.0 % (13.4-35.0) 04/01/19 05:01 Reactive Lymphs % (Man) 0 % 04/01/19 05:01 7.0 % (0.0-7.3) 04/01/19 05:01 2.0 % (0.0-4.3) 04/01/19 05:01 0 % (0.0-1.8) 04/01/19 05:01 0 % 04/01/19 05:01 0 % 04/01/19 05:01 0 % 04/01/19 05:01 0 % 04/01/19 05:01 Nucleated RBC % Not Reportable 04/01/19 05:01 Seg Neutrophils # 4.4 K/mm3 (1.8-7.7) 04/03/19 03:40 Seg Neutrophils # Man 4.8 K/mm3 (1.8-7.7) 04/01/19 05:01 Band Neutrophils # 0.0 K/mm3 04/01/19 05:01 1.4 K/mm3 (1.2-5.4) 04/01/19 05:01 Abs React Lymphs (Man) 0.0 K/mm3 04/01/19 05:01 0.5 K/mm3 (0.0-0.8) 04/01/19 05:01 0.1 K/mm3 (0.0-0.4) 04/01/19 05:01 0.0 K/mm3 (0.0-0.1) 04/01/19 05:01 0.0 K/mm3 04/01/19 05:01 0.0 K/mm3 04/01/19 05:01 0.0 K/mm3 04/01/19 05:01 Blast Cells # 0.0 K/mm3 04/01/19 05:01 WBC Morphology Not Reportable 04/01/19 05:01 Hypersegmented Neuts Not Reportable 04/01/19 05:01 Hyposegmented Neuts Not Reportable 04/01/19 05:01 Hypogranular Neuts Not Reportable 04/01/19 05:01 Not Reportable 04/01/19 05:01 Not Reportable 04/01/19 05:01 Not Reportable 04/01/19 05:01 Not Reportable 04/01/19 05:01 Not Reportable 04/01/19 05:01 Not Reportable 04/01/19 05:01 Not Reportable 04/01/19 05:01 Not Reportable 04/01/19 05:01 Plt Clumps, EDTA Not Reportable 04/01/19 05:01 Not Reportable 04/01/19 05:01 Not Reportable 04/01/19 05:01 Not Reportable 04/01/19 05:01 Plt Morphology Comment Not Reportable 04/01/19 05:01 RBC Morphology Normal 04/01/19 05:01 Dimorphic RBCs Not Reportable 04/01/19 05:01 Not Reportable 04/01/19 05:01 Not Reportable 04/01/19 05:01 Not Reportable 04/01/19 05:01 Not Reportable 04/01/19 05:01 Not Reportable 04/01/19 05:01 Not Reportable 04/01/19 05:01 Not Reportable 04/01/19 05:01 Not Reportable 04/01/19 05:01 Not Reportable 04/01/19 05:01 Not Reportable 04/01/19 05:01 Not Reportable 04/01/19 05:01 Not Reportable 04/01/19 05:01 Not Reportable 04/01/19 05:01 Not Reportable 04/01/19 05:01 Not Reportable 04/01/19 05:01 Not Reportable 04/01/19 05:01 Not Reportable 04/01/19 05:01 Not Reportable 04/01/19 05:01 Not Reportable 04/01/19 05:01 Acanthocytes (Spur) Not Reportable 04/01/19 05:01 Rouleaux Not Reportable 04/01/19 05:01 Not Reportable 04/01/19 05:01 Not Reportable 04/01/19 05:01 Not Reportable 04/01/19 05:01 Not Reportable 04/01/19 05:01 Hem Pathologist Commnt No 04/01/19 05:01 PT 13.9 Sec. (12.2-14.9) 04/01/19 17:14 INR 1.10 (0.87-1.13) 04/01/19 17:14 APTT 74.5 Sec. (24.2-36.6) H* 03/29/19 19:20 313 mg/dl (211-480) 04/01/19 17:14 4526.86 ng/mlDDU (0-234) H 04/06/19 00:06 Heparin Anti-Xa, Unfract Negative (Negative) 03/31/19 15:00 POC ABG pH 7.374 (7.35-7.45) 04/04/19 03:46 ABG pH 7.396 pH Units (7.350-7.450) 04/03/19 05:35 POC ABG pCO2 36.2 (35-45) 04/04/19 03:46 ABG pCO2 32.2 mm Hg 04/03/19 05:35 POC ABG pO2 96 (80-105) 04/04/19 03:46 ABG pO2 97.7 mm Hg (80.0-90.0) H 04/03/19 05:35 POC ABG HCO3 21.2 (22-26 mml/L) 04/04/19 03:46 ABG HCO3 19.3 mmol/L (20.0-26.0) L 04/03/19 05:35 POC ABG Total CO2 22 (23-27mmol/L) 04/04/19 03:46 POC ABG O2 Sat 97 04/04/19 03:46 ABG O2 Saturation 97.6 % (95.0-99.0) 04/03/19 05:35 ABG O2 Content 10.9 (0.0-44) 04/03/19 05:35 POC ABG Base Excess -4 ((-2) - (+3)mmol/L) 04/04/19 03:46 ABG Base Excess -5.0 mmol/L (-2.0-3.0) L 04/03/19 05:35 ABG Hemoglobin 8.0 gm/dl (12.0-16.0) L 04/03/19 05:35 ABG Carboxyhemoglobin 2.1 % (0.0-5.0) 04/03/19 05:35 ABG Methemoglobin 0.5 % (0.0-1.5) 04/03/19 05:35 VBG pH 6.800 (7.320-7.420) L* 03/29/19 19:47 95.1 % (95.0-99.0) 04/03/19 05:35 25 % 04/04/19 03:46 Sodium 141 mmol/L (137-145) 04/13/19 08:50 Potassium 3.8 mmol/L (3.6-5.0) 04/13/19 08:50 Chloride 105.6 mmol/L (98-107) 04/13/19 08:50 Carbon Dioxide 27 mmol/L (22-30) 04/13/19 08:50 12 mmol/L 04/13/19 08:50 BUN 8 mg/dL (7-17) 04/13/19 08:50 < 0.2 mg/dL (0.7-1.2) L 04/13/19 08:50 Estimated GFR > 60 ml/min 04/13/19 08:50 40 % 04/13/19 08:50 Glucose 46 mg/dL (65-100) L 04/13/19 08:50 POC Glucose 102 (70-105) 04/13/19 05:21 Lactic Acid 3.30 mmol/L (0.7-2.0) H* 03/31/19 07:50 Calcium 8.9 mg/dL (8.4-10.2) 04/13/19 08:50 Phosphorus 4.10 mg/dL (2.5-4.5) 04/09/19 16:25 Magnesium 1.80 mg/dL (1.7-2.3) 04/09/19 16:25 Iron 26 ug/dL (37-170) L 03/31/19 08:20 TIBC 193 mcg/dL (250-450) L 03/31/19 08:20 0.60 mg/dL (0.1-1.2) 04/03/19 03:40 0.2 mg/dL (0-0.2) 04/02/19 07:48 0.5 mg/dL 04/02/19 07:48 AST 594 units/L (5-40) H 04/03/19 03:40 ALT 861 units/L (7-56) H 04/03/19 03:40 299 units/L (35-129) H 04/03/19 03:40 2465 units/L (30-135) H 03/30/19 05:26 CK-MB (CK-2) 52.7 ng/mL (0.0-4.0) H 03/30/19 05:26 CK-MB (CK-2) Rel Index 2.1 (0-4) 03/30/19 05:26 < 0.010 ng/mL (0.00-0.029) 04/06/19 05:20 2.40 mg/dL (0.00-1.30) H 03/30/19 12:57 4.4 g/dL (6.3-8.2) L 04/03/19 03:40 2.1 g/dL (3.9-5) L 04/03/19 03:40 0.9 % 04/03/19 03:40 See scanned result 03/31/19 15:00 Vitamin B12 > 2000 pg/mL (211-911) H 03/31/19 08:20 > 20 ng/mL (7.3-26.0) 03/31/19 08:20 HCG, Qual Negative (Negative) 03/29/19 19:20 Yellow (Yellow) 03/29/19 23:10 Slightly-cloudy (Clear) 03/29/19 23:10 6.0 (5.0-7.0) 03/29/19 23:10 Ur Specific [place] 1.021 (1.003-1.030) 03/29/19 23:10 100 mg/dl mg/dL (Negative) 03/29/19 23:10 >=500 mg/dL (Negative) 03/29/19 23:10 20 mg/dL (Negative) 03/29/19 23:10 Lg (Negative) 03/29/19 23:10 Neg (Negative) 03/29/19 23:10 Neg (Negative) 03/29/19 23:10 < 2.0 mg/dL (<2.0) 03/29/19 23:10 Ur Leukocyte Esterase Neg (Negative) 03/29/19 23:10 1.0 /HPF (0.0-6.0) 03/29/19 23:10 1.0 /HPF (0.0-6.0) 03/29/19 23:10 Few /HPF 03/29/19 23:10 Salicylates 0.8 mg/dL (2.8-20.0) L 03/30/19 Unknown Presumptive negative 03/29/19 23:10 Presumptive negative 03/29/19 23:10 Acetaminophen < 5.0 ug/mL (10.0-30.0) L 03/30/19 Unknown Ur Barbiturates Screen Presumptive negative 03/29/19 23:10 Ur Phencyclidine Scrn Presumptive negative 03/29/19 23:10 Ur Amphetamines Screen Presumptive negative 03/29/19 23:10 U Benzodiazepines Scrn Presumptive negative 03/29/19 23:10 Presumptive negative 03/29/19 23:10 U Marijuana (THC) Screen Presumptive negative 03/29/19 23:10 Disclamer 03/29/19 23:10 Heparin-induced Plt Ab Negative (Negative) 03/31/19 15:00 UF Heparin High Dose 0 % Release 03/31/19 15:00 FABIAN UFH Low Dose 0.1 0 % Release 03/31/19 15:00 FABIAN UFH Low Dose 0.5 0 % Release 03/31/19 15:00 Hepatitis A IgM Ab Non-reactive (NonReactive) 03/30/19 Unknown Hep Bs Antigen Non-reactive (Negative) 03/30/19 Unknown Hep B Core IgM Ab Non-reactive (NonReactive) 03/30/19 Unknown Non-reactive (NonReactive) 03/30/19 Unknown Flexitest 1 H 03/30/19 14:00 Blood Type O POSITIVE 03/30/19 03:30 Antibody Screen Negative 03/30/19 03:30 Crossmatch See Detail 03/30/19 03:30 Active Medications - Current Medications Current Medications: Generic Name Dose Route Start Last Admin Trade Name Freq PRN Reason Stop Dose Admin Acetaminophen 650 mg 03/29/19 23:34 04/01/19 23:38 Tylenol PO 650 mg Q4H PRN Administration Pain MILD(1-3)/Fever >100.5/WARE Lipase/Protease/Amylase 1 each 04/02/19 11:[address] 10,500 Unit FEEDTUBE PRN PRN For Clogged Feeding Tube Dextrose 0 ml 03/29/19 20:33 04/13/19 12:00 D50w (25gm) Syringe IV 30 ml PRN PRN Administration Hypoglycemia Enoxaparin Sodium 40 mg 04/14/19 10:00 Lovenox SUB-Q QDAY@1000 ZAMZAM Famotidine 20 mg 04/02/19 10:00 04/13/19 11:06 Pepcid PO Not Given BID ZAMZAM Fentanyl 50 mcg 04/05/19 11:00 04/11/19 20:10 Sublimaze IV 50 mcg Q2H PRN Administration Pain , Severe (7-10)/AGITATION Hydrophilic Ointment 1 applic 03/30/19 11:24 Vaseline Lip Therapy TP Q2HR PRN Dry Lips Norepinephrine 4 mg in 250 mls @ 7.5 mls/hr 03/29/19 21:00 04/01/19 19:00 Levophed Drip 4 Mg/Ns 250 Ml IV 0 mcg/min TITR ZAMZAM 0 mls/hr Titration Protocol 2 MCG/MIN Propofol 1,000 mg in 100 mls @ 1.284 mls/hr 04/13/19 14:00 04/13/19 13:35 Diprivan 10 Mg/Ml IV 04/13/19 23:59 5 mcg/kg/min TITR ZAMZAM 1.284 mls/hr Administration Protocol 5 MCG/KG/MIN Insulin Glargine 20 units 04/09/19 22:00 04/12/19 21:53 Lantus SUB-Q 20 units QHS ZAMZAM Administration Insulin Human Regular 0 units 04/09/19 12:00 04/13/19 01:00 Humulin R SUB-Q 3 units Q6HR ZAMZAM Administration Protocol Levetiracetam 500 mg 04/03/19 10:00 04/13/19 11:06 Keppra PO Not Given BID ZAMZAM Multi-Ingred Cream/Lotion/Oil/Oint 1 applic 03/30/19 11:24 04/06/19 11:39 Artificial Tears Ophth Oint OU 1 applic Q4HR PRN Administration Dry Eye(s) Ondansetron HCl 4 mg 03/29/19 23:34 Zofran IV Q8H PRN Nausea And Vomiting Simple Syrup 15 ml 04/02/19 11:44 Simple Syrup FEEDTUBE PRN PRN Hypoglycemia Simple Syrup 30 ml 04/02/19 11:44 Simple Syrup FEEDTUBE PRN PRN Hypoglycemia Sodium Bicarbonate 325 mg 04/02/19 11:44 Sodium Bicarbonate FEEDTUBE PRN PRN For Clogged Feeding Tube Sodium Chloride 10 ml 03/30/19 10:00 04/12/19 21:48 Sodium Chloride Flush Syringe 10 Ml IV 10 ml BID ZAMZAM Administration Sodium Chloride 10 ml 03/29/19 23:34 Sodium Chloride Flush Syringe 10 Ml IV PRN PRN LINE FLUSH Nutrition/Malnutrition Assess - Dietary Evaluation Nutrition/Malnutrition Findings: Nutrition Notes Start: 03/30/19 13:14 Freq: Status: Active Protocol: Document 04/11/19 10:44 LM (Rec: 04/11/19 10:54 LM -[email or web address]) Nutrition Notes Initial or Follow up Reassessment Current Diagnosis Diabetes,Sepsis,Respiratory Failure Other Pertinent Diagnosis s/p cardiac arrest, DKA, ARF, Shock liver Current Diet Glucerna 1.2 at 50 ml/hr Labs/Tests POC glu 109 Pertinent Medications Reviewed Height 5 ft Weight 42.8 kg [place] Body Weight (kg) 45.45 BMI 18.4 Weight change and time frame Wt change noted Subjective/Other Information Glucerna running at 50 ml/hr. Pt is tolerateing TF. Per MD pt will be getting trach and PEG. Pt remains on vent. Burn Absent Trauma Absent #1 Nutrition Diagnosis Inadequate oral intake Diagnosis Progress(for reassessment Continues documentation) Is patient on ventilator? Yes Is Patient Ambulatory and/or Out of Bed No REE-([place]-confined to bed) 1279.860 Kcal/Kg value to use for calculation 40 Approximate Energy Requirements Using 1712 kcal/Kg Additional Notes Protein: 1.2-2g/k-86g/day Fluids: 1ml/kcal Nutrition Intervention Change Diet Order: Continue TF Nutrition Support: Glucerna 1.2 at 50ml/hr with 80ml water flush q4h. Kcal 1,440 Protein (gm) 72 Fluid (mL) 966 Goal #1 Meet at least 75% of energy and protein needs Follow-Up By: 04/18/19 Additional Comments F/U for TF tolerance/rate
--- NOTE | 2019-04-13 15:11 | XRay Report ---
CHEST 1 VIEW INDICATION: Tracheostomy placement. COMPARISON: 04/06/2019 FINDINGS: Support devices: Tracheostomy appears in good position at the level of the clavicles. Heart: Within normal limits. Lungs/Pleura: No acute air space or interstitial disease. Additional findings: None. IMPRESSION: No acute findings. Signer Name: Checo Bravo Jr, MD Signed: 04/13/2019 3:07 PM Workstation Name: [id number]
[2019-04-13] MEDS ORDERED: NACL 0.9% IR ONE (21:15)
--- NOTE | 2019-04-13 21:34 | XRay Report ---
CHEST 1 VIEW INDICATION / CLINICAL INFORMATION: ET tube verification. COMPARISON: 04/13/2019 at 1426 hours FINDINGS: SUPPORT DEVICES: The tracheostomy tube is directed into the right main bronchus. HEART / MEDIASTINUM: Mediastinal shift to the left LUNGS / PLEURA: Focal atelectasis in the left lung resulting in complete opacification. No pneumothor ax. ADDITIONAL FINDINGS: No significant additional findings. IMPRESSION: 1. Malpositioned tracheostomy tube resulting in obstructive atelectasis in the left lung. Signer Name: Neymar Roque MD Signed: 04/13/2019 9:29 PM Workstation Name: [id number]
[2019-04-13] MEDS: LANTUS SUB-Q SCH (21:55)
--- NOTE | 2019-04-13 23:04 | XRay Report ---
CHEST 1 VIEW INDICATION / CLINICAL INFORMATION: re-eval trach tube. COMPARISON: 01/11/2019 at 2111 hours FINDINGS: SUPPORT DEVICES: The tracheostomy tube has been pulled back. The tip is now located 2 cm above the ca josue. HEART / MEDIASTINUM: No significant abnormality. LUNGS / PLEURA: Resolving obstructive atelectasis in the left lung. No pneumothorax. ADDITIONAL FINDINGS: No significant additional findings. IMPRESSION: 1. Improving obstructive atelectasis of the left lung. Signer Name: Neymar Roque MD Signed: 04/13/2019 11:00 PM Workstation Name: [id number]
[2019-04-14] MEDS: SIMPLE SYRUP FEEDTUBE PRN (01:53)
[2019-04-14] MEDS: HumuLIN R SUB-Q SCH ×4 (06:40→17:55)
[2019-04-14 08:53] LABS: Hemoglobin 10.5 gm/dl (10.1-14.3); Mean Corpuscular HGB Conc 33 % (30-34); Mean Corpuscular Volume 98 fl (79-97); Platelet Count 622 K/mm3 (140-440); Red Blood Count 3.26 M/mm3 (3.65-5.03); Red Cell Distribution Width 18.3 % (13.2-15.2)
[2019-04-14 09:16] LABS: BUN/Creatinine Ratio 30; Blood Urea Nitrogen 6 mg/dL (7-17); Calcium 8.7 mg/dL (8.4-10.2); Hemolysis Index 72
--- NOTE | 2019-04-14 09:17 | Progress Note ---
Assessment and Plan Cultures: 03/29 BCx: no growth 03/29 sputum Cx: C albicans 03/30/2019 MRSA nasal: negative A/P: 28 yo F PMHx T1DM admitted after receiving intubation and CPR due to non- responsiveness likely secondary to DKA 1. Sepsis - resolved. 2. Aspiration pneumonia - Procal elevated. Completed abx. Jenn in sputum culture not a pathogen of the respiratory tract. 3. Liver lesion - Unlikely abscess. Likely trauma related subcapsular hematoma on follow up CT imaging and discussion with radiology. 4. DM-type 1, admitted with DKA 5. Head lice - s/p treatment x 3. 6. Acute encephalopathy: MRI showed anoxic brain injury. Guarded prognosis, now DNR. Recs: - continue off antibiotics Dr Ester evangelista on Tuesday Berenice Salgado MD Infectious Diseases [facility] [employer], [place], [facility] ([facility]) M [phone] O [phone] Subjective Date of service: 04/14/19 Principal diagnosis: Ac Hypoxemic Resp Failure; DKA; Severe sepsis with shock; ANGELICA Interval history: Remains unresponsive on the vent, no fever, no need for pressors. Objective - Exam Narrative Exam: General appearance: unresponsive in NAD Eyes: anicteric sclerae HENT: Atraumatic; oropharynx +ETT Neck: +trach with dressings Lungs: delisa coarse BS CV: RRR Abdomen: Soft, non-tender; +PEG Extremities: no edema Skin: No rash. Psych: no agitated Neuro: unresponsive - Constitutional Vitals: Vital Signs Temp Pulse Resp BP Pulse Ox 98.0 F 136 H 22 124/86 96 04/14/19 07:52 04/14/19 09:00 04/14/19 09:00 04/14/19 09:00 04/14/19 09:00 Temperature -Last 24 Hours Temperature 98.0 F Temperature 98.8 F Temperature 97.4 F Temperature 98.9 F Temperature 97.9 F Temperature 97.9 F Temperature 97.4 F Temperature 97.4 F Temperature 97.4 F - Labs CBC & Chem 7: 04/14/19 08:20 04/14/19 08:20 Labs: Abnormal lab results 04/13/19 04/13/19 04/13/19 Range/Units 08:50 11:56 17:27 WBC (4.5-11.0) K/mm3 RBC (3.65-5.03) M/mm3 MCV (79-97) fl RDW (13.2-15.2) % Plt Count (140-440) K/mm3 BUN (7-17) mg/dL Creatinine < 0.2 L (0.7-1.2) mg/dL Glucose 46 L (65-100) mg/dL POC Glucose 40 L 66 L (70-105) 04/13/19 04/14/19 04/14/19 Range/Units 23:57 05:28 08:20 WBC 17.8 H (4.5-11.0) K/mm3 RBC 3.26 L (3.65-5.03) M/mm3 MCV 98 H (79-97) fl RDW 18.3 H (13.2-15.2) % Plt Count 622 H (140-440) K/mm3 BUN (7-17) mg/dL Creatinine (0.7-1.2) mg/dL Glucose (65-100) mg/dL POC Glucose 65 L 149 H (70-105) 04/14/19 Range/Units 08:20 WBC (4.5-11.0) K/mm3 RBC (3.65-5.03) M/mm3 MCV (79-97) fl RDW (13.2-15.2) % Plt Count (140-440) K/mm3 BUN 6 L (7-17) mg/dL Creatinine < 0.2 L (0.7-1.2) mg/dL Glucose 154 H (65-100) mg/dL POC Glucose (70-105)
--- NOTE | 2019-04-14 09:28 | Progress Note ---
Assessment and Plan Assessment and plan: Patient is 29 year old woman with a history of diabetes was brought to the emergency room following a cardiac arrest. Her last well-known time was 10:30 in the morning, she was traveling with a friend, she was unresponsive in the back seat. EMS was called, CPR was started and continued here in the emergency room. Patient was intubated in the ER, noted hypotensive started on dobutamine, epinephrine and Levophed drip, given IV fluids, found to be in DKA with BG ~2200, several metabolic derangements - placed on insulin drip and admitted to ICU. BP improved and she was weaned off pressors. Still intubated on vent, minimal response. patient has been in coma for several days, no improvement. She has a DNR status order. Acute respiratory failure s/p intubated, on vent - on vent, cont nebs, - Worsening atalectasis, on chest xray, will discuss with pulmonary. Repeat xray in am. Monitor Leukoctosis - s/p Trach POD 1 - Pulm following - Aspiration precautions - VAP bundle Acute anoxic encephalopathy, POA - from cardiac arrest - Neurology following -MR concerning for anoxic Brain injury Cardiac arrest s/p resuscitation - likely 2/2 severe hyperglycemia - preserved EF on 2D echo DKA, severe - BG was >2200 on admission - s/p insulin drip. cont iv fluid - monitor BG q4h, on TF and on subqu insulin - adjust dose as needed Shock hypotensive vs sepsis - Now off pressors. Was on vasopressin, Levophed, Phenylephrine Sepsis with possible aspiration PNA - evident on CXR on admission with left sided infiltrates - cont abx per ID - Competed abx - Abx discontinued following notation that no evidence of liver lesion not consistent with infection per ID -Leucocytosis and thrombocytosis are likely reactive from hepatic subcapsular hematoma Head lice Permethin given isolation Acute renal failure, likely vasomotor nephropathy - resolved - cont iv fluid, monitor BMP Anemia, acute on chronic - no sign of blood loss s/p 2 Units PRBC transfused Hyperkalemia, resolved with fluid and insulin Hypernatremia Resolved hypokalemia, resolved Shock liver with elevated LFT and Coagulopathy - due to cardiac arrest and hypotension - cont to monitor Liver lesion ? abscess ID Physician following Discontinued abx, not consistent with infection as noted above Hypermagnesemia Hyperphosphatemia -cont to monitor, improved DVT Prophylaxis with Lovenox Poor prognosis discussed with mother at bedside. DNR status Mother has decided on DNR status The high probability of a clinically significant, sudden or life threatening deterioration of the [multiple] system(s) required my full and direct attention, intervention and personal management. The aggregate critical care time was [35] minutes. This time is in addition to time spent performing reported procedures but includes the following: [x] Data Review and interpretation [x] Patient assessment and monitoring of vital signs [x] Documentation [x] Medication orders and management History Interval history: Patient seen and examined, opens eyes spontaneously but remains unresponsive, on the vent Still intubated. No Fever. Patient is for Trach and peg today Hospitalist Physical - Physical exam Narrative exam: Gen: On full MVS and tolerating HEENT: facial edema, atraumatic. Trach Neck: supple, no JVD Heart: S1 and S2 reg, Tachycardia, no murmurs, rubs or gallop Lungs: Clear to auscultation, no rhonchi, no wheeze Abd: soft, non tender, non distended, normal BS, Ext: anasarca, leg edema, no cyanosis Neuro: Minimal responsive, does not follow commands, - Constitutional Vitals: Temp Pulse Resp BP Pulse Ox 98.0 F 136 H 22 124/86 96 04/14/19 07:52 04/14/19 09:00 04/14/19 09:00 04/14/19 09:00 04/14/19 09:00 General appearance: Present: other (intubated) Results - Labs CBC & Chem 7: 04/14/19 08:20 04/14/19 08:20 Labs: Laboratory Last Values WBC 17.8 K/mm3 (4.5-11.0) H 04/14/19 08:20 RBC 3.26 M/mm3 (3.65-5.03) L 04/14/19 08:20 Hgb 10.5 gm/dl (10.1-14.3) 04/14/19 08:20 Hct 32.0 % (30.3-42.9) 04/14/19 08:20 MCV 98 fl (79-97) H 04/14/19 08:20 MCH 32 pg (28-32) 04/14/19 08:20 MCHC 33 % (30-34) 04/14/19 08:20 RDW 18.3 % (13.2-15.2) H 04/14/19 08:20 Plt Count 622 K/mm3 (140-440) H 04/14/19 08:20 Lymph % (Auto) 16.9 % (13.4-35.0) 04/03/19 03:40 [place] % (Auto) 9.8 % (0.0-7.3) H 04/03/19 03:40 Eos % (Auto) 3.2 % (0.0-4.3) 04/03/19 03:40 Baso % (Auto) 0.4 % (0.0-1.8) 04/03/19 03:40 Lymph # 1.1 K/mm3 (1.2-5.4) L 04/03/19 03:40 [place] # 0.6 K/mm3 (0.0-0.8) 04/03/19 03:40 Eos # 0.2 K/mm3 (0.0-0.4) 04/03/19 03:40 Baso # 0.0 K/mm3 (0.0-0.1) 04/03/19 03:40 Add Manual Diff Complete 04/01/19 05:01 Total Counted 100 04/01/19 05:01 Seg Neutrophils % 69.7 % (40.0-70.0) 04/03/19 03:40 Seg Neuts % (Manual) 71.0 % (40.0-70.0) H 04/01/19 05:01 0 % 04/01/19 05:01 20.0 % (13.4-35.0) 04/01/19 05:01 Reactive Lymphs % (Man) 0 % 04/01/19 05:01 7.0 % (0.0-7.3) 04/01/19 05:01 2.0 % (0.0-4.3) 04/01/19 05:01 0 % (0.0-1.8) 04/01/19 05:01 0 % 04/01/19 05:01 0 % 04/01/19 05:01 0 % 04/01/19 05:01 0 % 04/01/19 05:01 Nucleated RBC % Not Reportable 04/01/19 05:01 Seg Neutrophils # 4.4 K/mm3 (1.8-7.7) 04/03/19 03:40 Seg Neutrophils # Man 4.8 K/mm3 (1.8-7.7) 04/01/19 05:01 Band Neutrophils # 0.0 K/mm3 04/01/19 05:01 1.4 K/mm3 (1.2-5.4) 04/01/19 05:01 Abs React Lymphs (Man) 0.0 K/mm3 04/01/19 05:01 0.5 K/mm3 (0.0-0.8) 04/01/19 05:01 0.1 K/mm3 (0.0-0.4) 04/01/19 05:01 0.0 K/mm3 (0.0-0.1) 04/01/19 05:01 0.0 K/mm3 04/01/19 05:01 0.0 K/mm3 04/01/19 05:01 0.0 K/mm3 04/01/19 05:01 Blast Cells # 0.0 K/mm3 04/01/19 05:01 WBC Morphology Not Reportable 04/01/19 05:01 Hypersegmented Neuts Not Reportable 04/01/19 05:01 Hyposegmented Neuts Not Reportable 04/01/19 05:01 Hypogranular Neuts Not Reportable 04/01/19 05:01 Not Reportable 04/01/19 05:01 Not Reportable 04/01/19 05:01 Not Reportable 04/01/19 05:01 Not Reportable 04/01/19 05:01 Not Reportable 04/01/19 05:01 Not Reportable 04/01/19 05:01 Not Reportable 04/01/19 05:01 Not Reportable 04/01/19 05:01 Plt Clumps, EDTA Not Reportable 04/01/19 05:01 Not Reportable 04/01/19 05:01 Not Reportable 04/01/19 05:01 Not Reportable 04/01/19 05:01 Plt Morphology Comment Not Reportable 04/01/19 05:01 RBC Morphology Normal 04/01/19 05:01 Dimorphic RBCs Not Reportable 04/01/19 05:01 Not Reportable 04/01/19 05:01 Not Reportable 04/01/19 05:01 Not Reportable 04/01/19 05:01 Not Reportable 04/01/19 05:01 Not Reportable 04/01/19 05:01 Not Reportable 04/01/19 05:01 Not Reportable 04/01/19 05:01 Not Reportable 04/01/19 05:01 Not Reportable 04/01/19 05:01 Not Reportable 04/01/19 05:01 Not Reportable 04/01/19 05:01 Not Reportable 04/01/19 05:01 Not Reportable 04/01/19 05:01 Not Reportable 04/01/19 05:01 Not Reportable 04/01/19 05:01 Not Reportable 04/01/19 05:01 Not Reportable 04/01/19 05:01 Not Reportable 04/01/19 05:01 Not Reportable 04/01/19 05:01 Acanthocytes (Spur) Not Reportable 04/01/19 05:01 Rouleaux Not Reportable 04/01/19 05:01 Not Reportable 04/01/19 05:01 Not Reportable 04/01/19 05:01 Not Reportable 04/01/19 05:01 Not Reportable 04/01/19 05:01 Hem Pathologist Commnt No 04/01/19 05:01 PT 13.9 Sec. (12.2-14.9) 04/01/19 17:14 INR 1.10 (0.87-1.13) 04/01/19 17:14 APTT 74.5 Sec. (24.2-36.6) H* 03/29/19 19:20 313 mg/dl (211-480) 04/01/19 17:14 4526.86 ng/mlDDU (0-234) H 04/06/19 00:06 Heparin Anti-Xa, Unfract Negative (Negative) 03/31/19 15:00 POC ABG pH 7.374 (7.35-7.45) 04/04/19 03:46 ABG pH 7.396 pH Units (7.350-7.450) 04/03/19 05:35 POC ABG pCO2 36.2 (35-45) 04/04/19 03:46 ABG pCO2 32.2 mm Hg 04/03/19 05:35 POC ABG pO2 96 (80-105) 04/04/19 03:46 ABG pO2 97.7 mm Hg (80.0-90.0) H 04/03/19 05:35 POC ABG HCO3 21.2 (22-26 mml/L) 04/04/19 03:46 ABG HCO3 19.3 mmol/L (20.0-26.0) L 04/03/19 05:35 POC ABG Total CO2 22 (23-27mmol/L) 04/04/19 03:46 POC ABG O2 Sat 97 04/04/19 03:46 ABG O2 Saturation 97.6 % (95.0-99.0) 04/03/19 05:35 ABG O2 Content 10.9 (0.0-44) 04/03/19 05:35 POC ABG Base Excess -4 ((-2) - (+3)mmol/L) 04/04/19 03:46 ABG Base Excess -5.0 mmol/L (-2.0-3.0) L 04/03/19 05:35 ABG Hemoglobin 8.0 gm/dl (12.0-16.0) L 04/03/19 05:35 ABG Carboxyhemoglobin 2.1 % (0.0-5.0) 04/03/19 05:35 ABG Methemoglobin 0.5 % (0.0-1.5) 04/03/19 05:35 VBG pH 6.800 (7.320-7.420) L* 03/29/19 19:47 95.1 % (95.0-99.0) 04/03/19 05:35 25 % 04/04/19 03:46 Sodium 138 mmol/L (137-145) 04/14/19 08:20 Potassium 4.3 mmol/L (3.6-5.0) 04/14/19 08:20 Chloride 104.4 mmol/L (98-107) 04/14/19 08:20 Carbon Dioxide 25 mmol/L (22-30) 04/14/19 08:20 13 mmol/L 04/14/19 08:20 BUN 6 mg/dL (7-17) L 04/14/19 08:20 < 0.2 mg/dL (0.7-1.2) L 04/14/19 08:20 Estimated GFR > 60 ml/min 04/14/19 08:20 30 % 04/14/19 08:20 Glucose 154 mg/dL (65-100) H 04/14/19 08:20 POC Glucose 149 (70-105) H 04/14/19 05:28 Lactic Acid 3.30 mmol/L (0.7-2.0) H* 03/31/19 07:50 Calcium 8.7 mg/dL (8.4-10.2) 04/14/19 08:20 Phosphorus 4.10 mg/dL (2.5-4.5) 04/09/19 16:25 Magnesium 1.80 mg/dL (1.7-2.3) 04/09/19 16:25 Iron 26 ug/dL (37-170) L 03/31/19 08:20 TIBC 193 mcg/dL (250-450) L 03/31/19 08:20 0.60 mg/dL (0.1-1.2) 04/03/19 03:40 0.2 mg/dL (0-0.2) 04/02/19 07:48 0.5 mg/dL 04/02/19 07:48 AST 594 units/L (5-40) H 04/03/19 03:40 ALT 861 units/L (7-56) H 04/03/19 03:40 299 units/L (35-129) H 04/03/19 03:40 2465 units/L (30-135) H 03/30/19 05:26 CK-MB (CK-2) 52.7 ng/mL (0.0-4.0) H 03/30/19 05:26 CK-MB (CK-2) Rel Index 2.1 (0-4) 03/30/19 05:26 < 0.010 ng/mL (0.00-0.029) 04/06/19 05:20 2.40 mg/dL (0.00-1.30) H 03/30/19 12:57 4.4 g/dL (6.3-8.2) L 04/03/19 03:40 2.1 g/dL (3.9-5) L 04/03/19 03:40 0.9 % 04/03/19 03:40 See scanned result 03/31/19 15:00 Vitamin B12 > 2000 pg/mL (211-911) H 03/31/19 08:20 > 20 ng/mL (7.3-26.0) 03/31/19 08:20 HCG, Qual Negative (Negative) 03/29/19 19:20 Yellow (Yellow) 03/29/19 23:10 Slightly-cloudy (Clear) 03/29/19 23:10 6.0 (5.0-7.0) 03/29/19 23:10 Ur Specific [place] 1.021 (1.003-1.030) 03/29/19 23:10 100 mg/dl mg/dL (Negative) 03/29/19 23:10 >=500 mg/dL (Negative) 03/29/19 23:10 20 mg/dL (Negative) 03/29/19 23:10 Lg (Negative) 03/29/19 23:10 Neg (Negative) 03/29/19 23:10 Neg (Negative) 03/29/19 23:10 < 2.0 mg/dL (<2.0) 03/29/19 23:10 Ur Leukocyte Esterase Neg (Negative) 03/29/19 23:10 1.0 /HPF (0.0-6.0) 03/29/19 23:10 1.0 /HPF (0.0-6.0) 03/29/19 23:10 Few /HPF 03/29/19 23:10 Salicylates 0.8 mg/dL (2.8-20.0) L 03/30/19 Unknown Presumptive negative 03/29/19 23:10 Presumptive negative 03/29/19 23:10 Acetaminophen < 5.0 ug/mL (10.0-30.0) L 03/30/19 Unknown Ur Barbiturates Screen Presumptive negative 03/29/19 23:10 Ur Phencyclidine Scrn Presumptive negative 03/29/19 23:10 Ur Amphetamines Screen Presumptive negative 03/29/19 23:10 U Benzodiazepines Scrn Presumptive negative 03/29/19 23:10 Presumptive negative 03/29/19 23:10 U Marijuana (THC) Screen Presumptive negative 03/29/19 23:10 Disclamer 03/29/19 23:10 Heparin-induced Plt Ab Negative (Negative) 03/31/19 15:00 UF Heparin High Dose 0 % Release 03/31/19 15:00 FABIAN UFH Low Dose 0.1 0 % Release 03/31/19 15:00 FABIAN UFH Low Dose 0.5 0 % Release 03/31/19 15:00 Hepatitis A IgM Ab Non-reactive (NonReactive) 03/30/19 Unknown Hep Bs Antigen Non-reactive (Negative) 03/30/19 Unknown Hep B Core IgM Ab Non-reactive (NonReactive) 03/30/19 Unknown Non-reactive (NonReactive) 03/30/19 Unknown Flexitest 1 H 03/30/19 14:00 Blood Type O POSITIVE 03/30/19 03:30 Antibody Screen Negative 03/30/19 03:30 Crossmatch See Detail 03/30/19 03:30 Active Medications - Current Medications Current Medications: Generic Name Dose Route Start Last Admin Trade Name Freq PRN Reason Stop Dose Admin Acetaminophen 650 mg 03/29/19 23:34 04/01/19 23:38 Tylenol PO 650 mg Q4H PRN Administration Pain MILD(1-3)/Fever >100.5/WARE Lipase/Protease/Amylase 1 each 04/02/19 11:[address] 10,500 Unit FEEDTUBE PRN PRN For Clogged Feeding Tube Dextrose 0 ml 03/29/19 20:33 04/13/19 18:27 D50w (25gm) Syringe IV 15 ml PRN PRN Administration Hypoglycemia Enoxaparin Sodium 40 mg 04/14/19 10:00 Lovenox SUB-Q QDAY@1000 ZAMZAM Famotidine 20 mg 04/02/19 10:00 04/13/19 21:44 Pepcid PO 20 mg BID ZAMZAM Administration Fentanyl 50 mcg 04/05/19 11:00 04/11/19 20:10 Sublimaze IV 50 mcg Q2H PRN Administration Pain , Severe (7-10)/AGITATION Hydrophilic Ointment 1 applic 03/30/19 11:24 Vaseline Lip Therapy TP Q2HR PRN Dry Lips Norepinephrine 4 mg in 250 mls @ 7.5 mls/hr 03/29/19 21:00 04/01/19 19:00 Levophed Drip 4 Mg/Ns 250 Ml IV 0 mcg/min TITR ZAMZAM 0 mls/hr Titration Protocol 2 MCG/MIN Insulin Glargine 20 units 04/09/19 22:00 04/13/19 21:55 Lantus SUB-Q 20 units QHS ZAMZAM Administration Insulin Human Regular 0 units 04/09/19 12:00 04/13/19 18:16 Humulin R SUB-Q Not Given Q6HR [facility] Protocol Levetiracetam 500 mg 04/03/19 10:00 04/13/19 21:44 Keppra PO 500 mg BID ZAMZAM Administration Multi-Ingred Cream/Lotion/Oil/Oint 1 applic 03/30/19 11:24 04/06/19 11:39 Artificial Tears Ophth Oint OU 1 applic Q4HR PRN Administration Dry Eye(s) Ondansetron HCl 4 mg 03/29/19 23:34 Zofran IV Q8H PRN Nausea And Vomiting Simple Syrup 15 ml 04/02/19 11:44 04/14/19 01:53 Simple Syrup FEEDTUBE 15 ml PRN PRN Administration Hypoglycemia Simple Syrup 30 ml 04/02/19 11:44 Simple Syrup FEEDTUBE PRN PRN Hypoglycemia Sodium Bicarbonate 325 mg 04/02/19 11:44 Sodium Bicarbonate FEEDTUBE PRN PRN For Clogged Feeding Tube Sodium Chloride 10 ml 03/30/19 10:00 04/13/19 21:44 Sodium Chloride Flush Syringe 10 Ml IV 10 ml BID ZAMZAM Administration Sodium Chloride 10 ml 03/29/19 23:34 Sodium Chloride Flush Syringe 10 Ml IV PRN PRN LINE FLUSH Nutrition/Malnutrition Assess - Dietary Evaluation Nutrition/Malnutrition Findings: Nutrition Notes Start: 03/30/19 13:14 Freq: Status: Active Protocol: Document 04/11/19 10:44 LM (Rec: 04/11/19 10:54 LM [email or web address]) Nutrition Notes Initial or Follow up Reassessment Current Diagnosis Diabetes,Sepsis,Respiratory Failure Other Pertinent Diagnosis s/p cardiac arrest, DKA, ARF, Shock liver Current Diet Glucerna 1.2 at 50 ml/hr Labs/Tests POC glu 109 Pertinent Medications Reviewed Height 5 ft Weight 42.8 kg [place] Body Weight (kg) 45.45 BMI 18.4 Weight change and time frame Wt change noted Subjective/Other Information Glucerna running at 50 ml/hr. Pt is tolerateing TF. Per MD pt will be getting trach and PEG. Pt remains on vent. Burn Absent Trauma Absent #1 Nutrition Diagnosis Inadequate oral intake Diagnosis Progress(for reassessment Continues documentation) Is patient on ventilator? Yes Is Patient Ambulatory and/or Out of Bed No REE-([facility]-confined to bed) 1279.860 Kcal/Kg value to use for calculation 40 Approximate Energy Requirements Using 1712 kcal/Kg Additional Notes Protein: 1.2-2g/k-86g/day Fluids: 1ml/kcal Nutrition Intervention Change Diet Order: Continue TF Nutrition Support: Glucerna 1.2 at 50ml/hr with 80ml water flush q4h. Kcal 1,440 Protein (gm) 72 Fluid (mL) 966 Goal #1 Meet at least 75% of energy and protein needs Follow-Up By: 04/18/19 Additional Comments F/U for TF tolerance/rate
[2019-04-14] MEDS ORDERED: NACL 0.9% 1000 ML 1,000 ML IV ONE (09:37)
[2019-04-14] MEDS: KEPPRA PO SCH ×2 (09:40→21:54)
[2019-04-14] MEDS: ENOXAPARIN SUB-Q SCH (09:40)
[2019-04-14] MEDS: PEPCID PO SCH ×2 (09:40→21:54)
--- NOTE | 2019-04-14 10:25 | XRay Report ---
CHEST 1 VIEW INDICATION / CLINICAL INFORMATION: shortness of breath. COMPARISON: 04/13/2019 FINDINGS: SUPPORT DEVICES: Tracheostomy tube HEART / MEDIASTINUM: No significant abnormality. LUNGS / PLEURA: Left lower lobe atelectasis has worsened since yesterday No pneumothorax. ADDITIONAL FINDINGS: No significant additional findings. IMPRESSION: Worsening left lower lobe atelectasis since yesterday Signer Name: Quan Cochran MD FACR Signed: 04/14/2019 10:20 AM Workstation Name: [id number]
--- NOTE | 2019-04-14 11:35 | Progress Note ---
Assessment and Plan Acute toxic metabolic encephalopathy. Diabetic ketoacidosis. Severe sepsis with shock. Possible aspiration pneumonia. History of polysubstance abuse. Leukocytosis. Elevated serum transaminases, possible shock liver. Hyponatremia related to her severe hyperglycemia. Anemia that is macrocytic. History of seizure disorder. Severe metabolic acidosis. 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 - continue bronchodilators with pulmonary hygiene per RT - VAP bundle addressed - continue to wean supplemental O2 to keep O2 sats > 90% - VTE prophylaxis with lovenox - Stress ulcer prophylaxis - continue accuchecks with glycemic control per SSI for target blood glucose 140-180 mg/dL - continue empiric antibiotics; de-escalate per ID rec's and based on clinical and microbiologic data - sedation target of RASS 0 to -1 - continue Keppra for seizures - continue mobility protocols / off loading for pressure ulcer prevention - Critical care bundles addressed - continue Seizure precautions - fall precautions - neuro-checks per RN - continue other care per attending / other consultants CONDITION: CRITICAL PROGNOSIS: GUARDED TO GRAVE CODE STATUS: FULL CODE The high probability of a clinically significant, sudden or life threatening deterioration of the [Neurology Respiratory, Cardiovascular] system(s) required my full and direct attention, intervention and personal management. The aggregate critical care time was [31] minutes. This time is in addition to time spent performing reported procedures but includes the following: [x] Data Review and interpretation [x] Patient assessment and monitoring of vital signs [x] Documentation [x] Medication orders and management Subjective Date of service: 04/14/19 Principal diagnosis: Ac Hypoxemic Resp Failure; DKA; Severe sepsis with shock; ANGELICA Interval history: Patient is seen today for: Acute Hypoxemic Resp Failure; Ac toxic metabolic encephalopathy; DKA; Severe sepsis with shock; Possible aspiration pneumonia; History of polysubstance abuse; History of seizure disorder; Acute kidney injury, possibly on chronic Seen and examined at bedside; 24hour events reviewed; nursing and respiratory care staff consulted; no adverse overnight events reported to me; resting peacefully in bed; s/p tracheostomy; trach changed to bovina and repositioned to avoid right main-stemming; AMS is persistent; currently on SBT Objective Vital Signs - 12hr 04/14/19 04/14/19 04/14/19 00:00 00:05 01:00 Temperature 97.4 F L Pulse Rate 118 H 115 H 109 H Pulse Rate [ 118 H From Monitor] Pulse Rate [ Right Radial] Respiratory 19 19 Rate Blood Pressure 129/90 140/93 132/86 O2 Sat by Pulse 100 100 100 Oximetry 04/14/19 04/14/19 04/14/19 02:00 03:00 03:39 Temperature 98.8 F Pulse Rate 116 H 116 H Pulse Rate [ 116 H From Monitor] Pulse Rate [ Right Radial] Respiratory 23 22 Rate Blood Pressure 124/92 136/95 O2 Sat by Pulse 100 100 Oximetry 04/14/19 04/14/19 04/14/19 04:00 04:15 05:00 Temperature Pulse Rate 117 H 116 H 118 H Pulse Rate [ 116 H From Monitor] Pulse Rate [ Right Radial] Respiratory 20 19 Rate Blood Pressure 140/93 127/97 124/89 O2 Sat by Pulse 100 100 98 Oximetry 04/14/19 04/14/19 04/14/19 06:00 07:00 07:52 Temperature 98.0 F Pulse Rate 122 H 139 H Pulse Rate [ From Monitor] Pulse Rate [ Right Radial] Respiratory 18 17 Rate Blood Pressure 131/93 129/92 O2 Sat by Pulse 100 99 Oximetry 04/14/19 04/14/19 04/14/19 08:00 08:50 09:00 Temperature Pulse Rate 126 H 133 H 136 H Pulse Rate [ From Monitor] Pulse Rate [ 132 H Right Radial] Respiratory 17 19 22 Rate Blood Pressure 126/90 127/79 124/86 O2 Sat by Pulse 100 100 96 Oximetry 04/14/19 04/14/19 10:00 11:00 Temperature Pulse Rate 136 H 126 H Pulse Rate [ From Monitor] Pulse Rate [ Right Radial] Respiratory 18 21 Rate Blood Pressure 135/92 142/90 O2 Sat by Pulse 99 100 Oximetry Constitutional: no acute distress, other (young CF normocephalic and atraumatic on MVS) Eyes: non-icteric ENT: oropharynx moist, other (s/p tracheostomy) Neck: supple, no lymphadenopathy, no JVD Effort: mildly labored Ascultation: Bilateral: diminished breath sounds, rhonchi (scant) Percussion: Bilateral: not dull Cardiovascular: regular rate and rhythm, other (sinus tachycardia) Gastrointestinal: hypoactive bowel sounds, soft, non-tender, non-distended Integumentary: erythema (noted on upper extremity) Extremities: no cyanosis, pink and warm, pulses normal, no ischemia or petechiae, edema (trace to 1+) Neurologic: unable to assess (remains unresponsive, opens eyes on suctioning, not obeying commands) Psychiatric: other (unable to assess) CBC and BMP: 04/14/19 08:20 04/14/19 08:20 ABG, PT/INR, D-dimer: ABG POC ABG pH 7.374 (7.35-7.45) 04/04/19 03:46 ABG pH 7.396 pH Units (7.350-7.450) 04/03/19 05:35 POC ABG pCO2 36.2 (35-45) 04/04/19 03:46 ABG pCO2 32.2 mm Hg 04/03/19 05:35 POC ABG pO2 96 (80-105) 04/04/19 03:46 ABG pO2 97.7 mm Hg (80.0-90.0) H 04/03/19 05:35 POC ABG HCO3 21.2 (22-26 mml/L) 04/04/19 03:46 POC ABG Total CO2 22 (23-27mmol/L) 04/04/19 03:46 POC ABG O2 Sat 97 04/04/19 03:46 ABG O2 Saturation 97.6 % (95.0-99.0) 04/03/19 05:35 PT/INR, D-dimer PT 13.9 Sec. (12.2-14.9) 04/01/19 17:14 INR 1.10 (0.87-1.13) 04/01/19 17:14 4526.86 ng/mlDDU (0-234) H 04/06/19 00:06 Abnormal lab findings: Abnormal Labs 03/29/19 03/29/19 03/29/19 19:11 19:20 19:20 WBC 26.7 H RBC 2.52 L Hgb 8.1 L Hct MCV 148 H MCH MCHC 22 L RDW 18.5 H Plt Count [place] % (Auto) Lymph # Seg Neuts % (Manual) 82.0 H Lymphocytes % (Manual) 7.0 L Nucleated RBC % Seg Neutrophils # Man 21.9 H Lymphocytes # (Manual) Monocytes # (Manual) 1.9 H PT 21.8 H INR 1.95 H APTT 74.5 H* D-Dimer POC ABG pH ABG pH POC ABG pO2 ABG pO2 ABG HCO3 ABG O2 Saturation ABG Base Excess ABG Hemoglobin VBG pH Oxyhemoglobin Sodium Potassium Chloride Carbon Dioxide BUN Creatinine Glucose POC Glucose > 500 H Lactic Acid Calcium Phosphorus Magnesium Iron TIBC Direct Bilirubin AST ALT Alkaline Phosphatase Total Creatine Kinase CK-MB (CK-2) C-Reactive Protein Total Protein Albumin Vitamin B12 Salicylates Acetaminophen Miscellaneous Test Crossmatch 03/29/19 03/29/19 03/29/19 19:20 19:47 20:59 WBC RBC Hgb Hct MCV MCH MCHC RDW Plt Count [place] % (Auto) Lymph # Seg Neuts % (Manual) Lymphocytes % (Manual) Nucleated RBC % Seg Neutrophils # Man Lymphocytes # (Manual) Monocytes # (Manual) PT INR APTT D-Dimer POC ABG pH 6.892 L ABG pH POC ABG pO2 236 H ABG pO2 ABG HCO3 ABG O2 Saturation ABG Base Excess ABG Hemoglobin VBG pH 6.800 L* Oxyhemoglobin Sodium 118 L* Potassium 9.0 H* Chloride 64.5 L Carbon Dioxide 7 L* BUN 53 H Creatinine 2.1 H Glucose 2196 H* POC Glucose Lactic Acid Calcium 12.4 H* Phosphorus Magnesium Iron TIBC Direct Bilirubin AST 3900 H ALT 1034 H Alkaline Phosphatase 316 H Total Creatine Kinase CK-MB (CK-2) C-Reactive Protein Total Protein 5.1 L Albumin 2.8 L Vitamin B12 Salicylates Acetaminophen Miscellaneous Test Crossmatch 03/29/19 03/29/19 03/29/19 22:45 22:45 22:45 WBC RBC Hgb Hct MCV MCH MCHC RDW Plt Count [place] % (Auto) Lymph # Seg Neuts % (Manual) Lymphocytes % (Manual) Nucleated RBC % Seg Neutrophils # Man Lymphocytes # (Manual) Monocytes # (Manual) PT INR APTT D-Dimer POC ABG pH ABG pH POC ABG pO2 ABG pO2 ABG HCO3 ABG O2 Saturation ABG Base Excess ABG Hemoglobin VBG pH Oxyhemoglobin Sodium 132 L D Potassium 7.0 H* Chloride 84.3 L Carbon Dioxide 3 L* BUN 48 H Creatinine 1.8 H Glucose 1779 H* POC Glucose Lactic Acid Calcium Phosphorus 21.70 H Magnesium 4.70 H Iron TIBC Direct Bilirubin AST ALT Alkaline Phosphatase Total Creatine Kinase 363 H CK-MB (CK-2) C-Reactive Protein Total Protein Albumin Vitamin B12 Salicylates Acetaminophen Miscellaneous Test Crossmatch 03/29/19 03/29/19 03/30/19 Unknown Unknown 00:11 WBC RBC Hgb Hct MCV MCH MCHC RDW Plt Count [place] % (Auto) Lymph # Seg Neuts % (Manual) Lymphocytes % (Manual) Nucleated RBC % Seg Neutrophils # Man Lymphocytes # (Manual) Monocytes # (Manual) PT INR APTT D-Dimer POC ABG pH ABG pH POC ABG pO2 ABG pO2 ABG HCO3 ABG O2 Saturation ABG Base Excess ABG Hemoglobin VBG pH Oxyhemoglobin Sodium 122 L Potassium 7.9 H* 6.4 H* Chloride 75.3 L 89.7 L Carbon Dioxide 3 L* 12 L D BUN 52 H 46 H Creatinine 2.0 H 1.7 H Glucose 2043 H* 1591 H* POC Glucose Lactic Acid Calcium 7.8 L Phosphorus 19.30 H Magnesium 3.90 H Iron TIBC Direct Bilirubin AST ALT Alkaline Phosphatase Total Creatine Kinase CK-MB (CK-2) C-Reactive Protein Total Protein Albumin Vitamin B12 Salicylates Acetaminophen Miscellaneous Test Crossmatch 03/30/19 03/30/19 03/30/19 00:11 02:14 02:14 WBC RBC Hgb Hct MCV MCH MCHC RDW Plt Count [place] % (Auto) Lymph # Seg Neuts % (Manual) Lymphocytes % (Manual) Nucleated RBC % Seg Neutrophils # Man Lymphocytes # (Manual) Monocytes # (Manual) PT INR APTT D-Dimer POC ABG pH ABG pH POC ABG pO2 ABG pO2 ABG HCO3 ABG O2 Saturation ABG Base Excess ABG Hemoglobin VBG pH Oxyhemoglobin Sodium Potassium Chloride Carbon Dioxide 9 L* BUN 45 H Creatinine 1.7 H Glucose 1155 H* POC Glucose Lactic Acid Calcium 7.9 L Phosphorus 10.90 H D 5.30 H D Magnesium 3.10 H 2.90 H Iron TIBC Direct Bilirubin AST ALT Alkaline Phosphatase Total Creatine Kinase CK-MB (CK-2) C-Reactive Protein Total Protein Albumin Vitamin B12 Salicylates Acetaminophen Miscellaneous Test Crossmatch 03/30/19 03/30/19 03/30/19 03:15 03:30 04:23 WBC 18.0 H RBC 2.31 L Hgb 7.3 L Hct 23.8 L D MCV 103 H MCH MCHC RDW 17.1 H Plt Count [place] % (Auto) Lymph # Seg Neuts % (Manual) 79.0 H Lymphocytes % (Manual) Nucleated RBC % Seg Neutrophils # Man 14.2 H Lymphocytes # (Manual) Monocytes # (Manual) PT INR APTT D-Dimer POC ABG pH 7.251 L ABG pH POC ABG pO2 156 H ABG pO2 ABG HCO3 ABG O2 Saturation ABG Base Excess ABG Hemoglobin VBG pH Oxyhemoglobin Sodium Potassium Chloride Carbon Dioxide BUN Creatinine Glucose POC Glucose Lactic Acid Calcium Phosphorus Magnesium Iron TIBC Direct Bilirubin AST ALT Alkaline Phosphatase Total Creatine Kinase CK-MB (CK-2) C-Reactive Protein Total Protein Albumin Vitamin B12 Salicylates Acetaminophen Miscellaneous Test Crossmatch See Detail 03/30/19 03/30/19 03/30/19 05:26 05:26 10:38 WBC RBC Hgb Hct MCV MCH MCHC RDW Plt Count [place] % (Auto) Lymph # Seg Neuts % (Manual) Lymphocytes % (Manual) Nucleated RBC % Seg Neutrophils # Man Lymphocytes # (Manual) Monocytes # (Manual) PT INR APTT D-Dimer POC ABG pH ABG pH POC ABG pO2 ABG pO2 ABG HCO3 ABG O2 Saturation ABG Base Excess ABG Hemoglobin VBG pH Oxyhemoglobin Sodium 158 H D Potassium 3.5 L Chloride 109.3 H Carbon Dioxide 19 L D BUN 40 H Creatinine 1.5 H Glucose 760 H* POC Glucose 380 H Lactic Acid Calcium 7.3 L Phosphorus Magnesium 2.60 H Iron TIBC Direct [place] 96252 H ALT 2156 H Alkaline Phosphatase 271 H Total Creatine Kinase 2465 H CK-MB (CK-2) 52.7 H C-Reactive Protein Total Protein 4.5 L Albumin 2.4 L Vitamin B12 Salicylates Acetaminophen Miscellaneous Test Crossmatch 03/30/19 03/30/19 03/30/19 11:08 12:25 12:57 WBC RBC Hgb Hct MCV MCH MCHC RDW Plt Count [place] % (Auto) Lymph # Seg Neuts % (Manual) Lymphocytes % (Manual) Nucleated RBC % Seg Neutrophils # Man Lymphocytes # (Manual) Monocytes # (Manual) PT INR APTT D-Dimer POC ABG pH ABG pH POC ABG pO2 ABG pO2 ABG HCO3 ABG O2 Saturation ABG Base Excess ABG Hemoglobin VBG pH Oxyhemoglobin Sodium 156 H Potassium 3.2 L Chloride 116.4 H Carbon Dioxide 21 L BUN 37 H Creatinine Glucose 162 H POC Glucose 263 H 196 H Lactic Acid Calcium 7.2 L Phosphorus Magnesium Iron TIBC Direct Bilirubin AST ALT Alkaline Phosphatase Total Creatine Kinase CK-MB (CK-2) C-Reactive Protein Total Protein Albumin Vitamin B12 Salicylates Acetaminophen Miscellaneous Test Crossmatch 03/30/19 03/30/19 03/30/19 12:57 12:57 12:57 WBC RBC Hgb Hct MCV MCH MCHC RDW Plt Count [place] % (Auto) Lymph # Seg Neuts % (Manual) Lymphocytes % (Manual) Nucleated RBC % Seg Neutrophils # Man Lymphocytes # (Manual) Monocytes # (Manual) PT 21.0 H INR 1.86 H APTT D-Dimer POC ABG pH ABG pH POC ABG pO2 ABG pO2 ABG HCO3 ABG O2 Saturation ABG Base Excess ABG Hemoglobin VBG pH Oxyhemoglobin Sodium Potassium Chloride Carbon Dioxide BUN Creatinine Glucose POC Glucose Lactic Acid 9.00 H* Calcium Phosphorus Magnesium Iron TIBC Direct Bilirubin AST ALT Alkaline Phosphatase Total Creatine Kinase CK-MB (CK-2) C-Reactive Protein 2.40 H Total Protein Albumin Vitamin B12 Salicylates Acetaminophen Miscellaneous Test Crossmatch 03/30/19 03/30/19 03/30/19 13:23 14:00 14:47 WBC RBC Hgb Hct MCV MCH MCHC RDW Plt Count [place] % (Auto) Lymph # Seg Neuts % (Manual) Lymphocytes % (Manual) Nucleated RBC % Seg Neutrophils # Man Lymphocytes # (Manual) Monocytes # (Manual) PT INR APTT D-Dimer POC ABG pH ABG pH POC ABG pO2 ABG pO2 ABG HCO3 ABG O2 Saturation ABG Base Excess ABG Hemoglobin VBG pH Oxyhemoglobin Sodium Potassium Chloride Carbon Dioxide BUN Creatinine Glucose POC Glucose 176 H 245 H Lactic Acid Calcium Phosphorus Magnesium Iron TIBC Direct Bilirubin AST ALT Alkaline Phosphatase Total Creatine Kinase CK-MB (CK-2) C-Reactive Protein Total Protein Albumin Vitamin B12 Salicylates Acetaminophen Miscellaneous Test Flexitest 1 H Crossmatch 03/30/19 03/30/19 03/30/19 16:11 17:11 17:46 WBC RBC Hgb Hct MCV MCH MCHC RDW Plt Count [place] % (Auto) Lymph # Seg Neuts % (Manual) Lymphocytes % (Manual) Nucleated RBC % Seg Neutrophils # Man Lymphocytes # (Manual) Monocytes # (Manual) PT INR APTT D-Dimer POC ABG pH ABG pH POC ABG pO2 ABG pO2 ABG HCO3 ABG O2 Saturation ABG Base Excess ABG Hemoglobin VBG pH Oxyhemoglobin Sodium Potassium Chloride Carbon Dioxide BUN Creatinine Glucose POC Glucose 181 H 167 H 125 H Lactic Acid Calcium Phosphorus Magnesium Iron TIBC Direct Bilirubin AST ALT Alkaline Phosphatase Total Creatine Kinase CK-MB (CK-2) C-Reactive Protein Total Protein Albumin Vitamin B12 Salicylates Acetaminophen Miscellaneous Test Crossmatch 03/30/19 03/30/19 03/30/19 18:59 21:31 22:19 WBC RBC Hgb Hct MCV MCH MCHC RDW Plt Count [place] % (Auto) Lymph # Seg Neuts % (Manual) Lymphocytes % (Manual) Nucleated RBC % Seg Neutrophils # Man Lymphocytes # (Manual) Monocytes # (Manual) PT INR APTT D-Dimer POC ABG pH ABG pH POC ABG pO2 ABG pO2 ABG HCO3 ABG O2 Saturation ABG Base Excess ABG Hemoglobin VBG pH Oxyhemoglobin Sodium Potassium Chloride Carbon Dioxide BUN Creatinine Glucose POC Glucose 140 H 166 H 115 H Lactic Acid Calcium Phosphorus Magnesium Iron TIBC Direct Bilirubin AST ALT Alkaline Phosphatase Total Creatine Kinase CK-MB (CK-2) C-Reactive Protein Total Protein Albumin Vitamin B12 Salicylates Acetaminophen Miscellaneous Test Crossmatch 03/30/19 03/30/19 03/30/19 23:13 Unknown Unknown WBC RBC Hgb Hct MCV MCH MCHC RDW Plt Count [place] % (Auto) Lymph # Seg Neuts % (Manual) Lymphocytes % (Manual) Nucleated RBC % Seg Neutrophils # Man Lymphocytes # (Manual) Monocytes # (Manual) PT INR APTT D-Dimer POC ABG pH ABG pH POC ABG pO2 ABG pO2 47.8 L ABG HCO3 18.8 L ABG O2 Saturation 83.8 L ABG Base Excess -5.4 L ABG Hemoglobin 6.8 L VBG pH Oxyhemoglobin 81.8 L Sodium 157 H Potassium 3.3 L Chloride 117.9 H Carbon Dioxide 20 L BUN 36 H Creatinine Glucose 150 H POC Glucose 112 H Lactic Acid Calcium 7.2 L Phosphorus Magnesium Iron TIBC Direct Bilirubin AST ALT Alkaline Phosphatase Total Creatine Kinase CK-MB (CK-2) C-Reactive Protein Total Protein Albumin Vitamin B12 Salicylates Acetaminophen Miscellaneous Test Crossmatch 03/30/19 03/30/19 03/31/19 Unknown Unknown 00:03 WBC RBC Hgb Hct MCV MCH MCHC RDW Plt Count [place] % (Auto) Lymph # Seg Neuts % (Manual) Lymphocytes % (Manual) Nucleated RBC % Seg Neutrophils # Man Lymphocytes # (Manual) Monocytes # (Manual) PT INR APTT D-Dimer POC ABG pH ABG pH POC ABG pO2 ABG pO2 ABG HCO3 ABG O2 Saturation ABG Base Excess ABG Hemoglobin VBG pH Oxyhemoglobin Sodium Potassium Chloride Carbon Dioxide BUN Creatinine Glucose POC Glucose 188 H Lactic Acid Calcium Phosphorus Magnesium Iron TIBC Direct Bilirubin AST ALT Alkaline Phosphatase Total Creatine Kinase CK-MB (CK-2) C-Reactive Protein Total Protein Albumin Vitamin B12 Salicylates 0.8 L Acetaminophen < 5.0 L Miscellaneous Test Crossmatch 03/31/19 03/31/19 03/31/19 01:18 03:07 03:50 WBC RBC Hgb Hct MCV MCH MCHC RDW Plt Count [place] % (Auto) Lymph # Seg Neuts % (Manual) Lymphocytes % (Manual) Nucleated RBC % Seg Neutrophils # Man Lymphocytes # (Manual) Monocytes # (Manual) PT INR APTT D-Dimer POC ABG pH ABG pH 7.525 H POC ABG pO2 ABG pO2 178.0 H ABG HCO3 19.5 L ABG O2 Saturation 99.2 H ABG Base Excess -3.1 L ABG Hemoglobin 5.8 L VBG pH Oxyhemoglobin Sodium Potassium Chloride Carbon Dioxide BUN Creatinine Glucose POC Glucose 114 H 107 H Lactic Acid Calcium Phosphorus Magnesium Iron TIBC Direct Bilirubin AST ALT Alkaline Phosphatase Total Creatine Kinase CK-MB (CK-2) C-Reactive Protein Total Protein Albumin Vitamin B12 Salicylates Acetaminophen Miscellaneous Test Crossmatch 03/31/19 03/31/19 03/31/19 03:51 03:51 04:05 WBC RBC 1.89 L Hgb 6.1 L Hct 18.2 L* MCV MCH MCHC RDW 17.7 H Plt Count 89 L [place] % (Auto) Lymph # Seg Neuts % (Manual) 86.0 H Lymphocytes % (Manual) 10.0 L Nucleated RBC % 1.0 H Seg Neutrophils # Man Lymphocytes # (Manual) 0.7 L Monocytes # (Manual) PT INR APTT D-Dimer POC ABG pH ABG pH POC ABG pO2 ABG pO2 ABG HCO3 ABG O2 Saturation ABG Base Excess ABG Hemoglobin VBG pH Oxyhemoglobin Sodium 151 H Potassium 3.2 L Chloride 119.4 H Carbon Dioxide 17 L BUN 35 H Creatinine Glucose 139 H POC Glucose 153 H Lactic Acid Calcium 7.1 L Phosphorus Magnesium Iron TIBC Direct Bilirubin AST ALT Alkaline Phosphatase Total Creatine Kinase CK-MB (CK-2) C-Reactive Protein Total Protein Albumin Vitamin B12 Salicylates Acetaminophen Miscellaneous Test Crossmatch 03/31/19 03/31/19 03/31/19 05:05 05:35 06:23 WBC RBC Hgb Hct MCV MCH MCHC RDW Plt Count [place] % (Auto) Lymph # Seg Neuts % (Manual) Lymphocytes % (Manual) Nucleated RBC % Seg Neutrophils # Man Lymphocytes # (Manual) Monocytes # (Manual) PT INR APTT D-Dimer POC ABG pH ABG pH POC ABG pO2 ABG pO2 ABG HCO3 ABG O2 Saturation ABG Base Excess ABG Hemoglobin VBG pH Oxyhemoglobin Sodium Potassium Chloride Carbon Dioxide BUN Creatinine Glucose POC Glucose 176 H 133 H Lactic Acid 3.20 H* Calcium Phosphorus Magnesium Iron TIBC Direct Bilirubin AST ALT Alkaline Phosphatase Total Creatine Kinase CK-MB (CK-2) C-Reactive Protein Total Protein Albumin Vitamin B12 Salicylates Acetaminophen Miscellaneous Test Crossmatch 03/31/19 03/31/19 03/31/19 07:50 07:51 08:20 WBC RBC Hgb Hct MCV MCH MCHC RDW Plt Count [place] % (Auto) Lymph # Seg Neuts % (Manual) Lymphocytes % (Manual) Nucleated RBC % Seg Neutrophils # Man Lymphocytes # (Manual) Monocytes # (Manual) PT INR APTT D-Dimer POC ABG pH ABG pH POC ABG pO2 ABG pO2 ABG HCO3 ABG O2 Saturation ABG Base Excess ABG Hemoglobin VBG pH Oxyhemoglobin Sodium Potassium Chloride Carbon Dioxide BUN Creatinine Glucose POC Glucose 135 H Lactic Acid 3.30 H* Calcium Phosphorus Magnesium Iron 26 L TIBC 193 L Direct Bilirubin AST ALT Alkaline Phosphatase Total Creatine Kinase CK-MB (CK-2) C-Reactive Protein Total Protein Albumin Vitamin B12 Salicylates Acetaminophen Miscellaneous Test Crossmatch 03/31/19 03/31/19 03/31/19 08:20 08:20 09:06 WBC RBC Hgb Hct MCV MCH MCHC RDW Plt Count [place] % (Auto) Lymph # Seg Neuts % (Manual) Lymphocytes % (Manual) Nucleated RBC % Seg Neutrophils # Man Lymphocytes # (Manual) Monocytes # (Manual) PT INR APTT D-Dimer POC ABG pH ABG pH POC ABG pO2 ABG pO2 ABG HCO3 ABG O2 Saturation ABG Base Excess ABG Hemoglobin VBG pH Oxyhemoglobin Sodium 153 H Potassium 3.0 L Chloride 118.9 H Carbon Dioxide 18 L BUN 37 H Creatinine Glucose 132 H POC Glucose 145 H Lactic Acid Calcium 7.1 L Phosphorus Magnesium Iron TIBC Direct Bilirubin AST ALT Alkaline Phosphatase Total Creatine Kinase CK-MB (CK-2) C-Reactive Protein Total Protein Albumin Vitamin B12 > 2000 H Salicylates Acetaminophen Miscellaneous Test Crossmatch 03/31/19 03/31/19 03/31/19 10:47 11:49 13:04 WBC RBC Hgb Hct MCV MCH MCHC RDW Plt Count [place] % (Auto) Lymph # Seg Neuts % (Manual) Lymphocytes % (Manual) Nucleated RBC % Seg Neutrophils # Man Lymphocytes # (Manual) Monocytes # (Manual) PT INR APTT D-Dimer POC ABG pH ABG pH POC ABG pO2 ABG pO2 ABG HCO3 ABG O2 Saturation ABG Base Excess ABG Hemoglobin VBG pH Oxyhemoglobin Sodium Potassium Chloride Carbon Dioxide BUN Creatinine Glucose POC Glucose 153 H 174 H 214 H Lactic Acid Calcium Phosphorus Magnesium Iron TIBC Direct Bilirubin AST ALT Alkaline Phosphatase Total Creatine Kinase CK-MB (CK-2) C-Reactive Protein Total Protein Albumin Vitamin B12 Salicylates Acetaminophen Miscellaneous Test Crossmatch 03/31/19 03/31/19 03/31/19 13:42 15:08 16:08 WBC RBC Hgb Hct MCV MCH MCHC RDW Plt Count [place] % (Auto) Lymph # Seg Neuts % (Manual) Lymphocytes % (Manual) Nucleated RBC % Seg Neutrophils # Man Lymphocytes # (Manual) Monocytes # (Manual) PT INR APTT D-Dimer POC ABG pH ABG pH POC ABG pO2 ABG pO2 ABG HCO3 ABG O2 Saturation ABG Base Excess ABG Hemoglobin VBG pH Oxyhemoglobin Sodium Potassium Chloride Carbon Dioxide BUN Creatinine Glucose POC Glucose 186 H 136 H 150 H Lactic Acid Calcium Phosphorus Magnesium Iron TIBC Direct Bilirubin AST ALT Alkaline Phosphatase Total Creatine Kinase CK-MB (CK-2) C-Reactive Protein Total Protein Albumin Vitamin B12 Salicylates Acetaminophen Miscellaneous Test Crossmatch 03/31/19 03/31/19 03/31/19 17:11 17:30 17:30 WBC RBC Hgb 7.7 L Hct 23.0 L MCV MCH MCHC RDW Plt Count [place] % (Auto) Lymph # Seg Neuts % (Manual) Lymphocytes % (Manual) Nucleated RBC % Seg Neutrophils # Man Lymphocytes # (Manual) Monocytes # (Manual) PT INR APTT D-Dimer POC ABG pH ABG pH POC ABG pO2 ABG pO2 ABG HCO3 ABG O2 Saturation ABG Base Excess ABG Hemoglobin VBG pH Oxyhemoglobin Sodium 153 H Potassium 3.5 L Chloride 119.3 H Carbon Dioxide 20 L BUN 34 H Creatinine Glucose 162 H POC Glucose 140 H Lactic Acid Calcium 7.6 L Phosphorus Magnesium Iron TIBC Direct Bilirubin AST ALT Alkaline Phosphatase Total Creatine Kinase CK-MB (CK-2) C-Reactive Protein Total Protein Albumin Vitamin B12 Salicylates Acetaminophen Miscellaneous Test Crossmatch 03/31/19 03/31/19 03/31/19 17:59 18:58 20:28 WBC RBC Hgb Hct MCV MCH MCHC RDW Plt Count [place] % (Auto) Lymph # Seg Neuts % (Manual) Lymphocytes % (Manual) Nucleated RBC % Seg Neutrophils # Man Lymphocytes # (Manual) Monocytes # (Manual) PT INR APTT D-Dimer POC ABG pH ABG pH POC ABG pO2 ABG pO2 ABG HCO3 ABG O2 Saturation ABG Base Excess ABG Hemoglobin VBG pH Oxyhemoglobin Sodium Potassium Chloride Carbon Dioxide BUN Creatinine Glucose POC Glucose 156 H 152 H 138 H Lactic Acid Calcium Phosphorus Magnesium Iron TIBC Direct Bilirubin AST ALT Alkaline Phosphatase Total Creatine Kinase CK-MB (CK-2) C-Reactive Protein Total Protein Albumin Vitamin B12 Salicylates Acetaminophen Miscellaneous Test Crossmatch 09/07/19 09/07/19 09/07/19 21:09 22:15 23:10 WBC RBC Hgb Hct MCV MCH MCHC RDW Plt Count [place] % (Auto) Lymph # Seg Neuts % (Manual) Lymphocytes % (Manual) Nucleated RBC % Seg Neutrophils # Man Lymphocytes # (Manual) Monocytes # (Manual) PT INR APTT D-Dimer POC ABG pH ABG pH POC ABG pO2 ABG pO2 ABG HCO3 ABG O2 Saturation ABG Base Excess ABG Hemoglobin VBG pH Oxyhemoglobin Sodium Potassium Chloride Carbon Dioxide BUN Creatinine Glucose POC Glucose 136 H 137 H 148 H Lactic Acid Calcium Phosphorus Magnesium Iron TIBC Direct Bilirubin AST ALT Alkaline Phosphatase Total Creatine Kinase CK-MB (CK-2) C-Reactive Protein Total Protein Albumin Vitamin B12 Salicylates Acetaminophen Miscellaneous Test Crossmatch 04/01/19 04/01/19 04/01/19 00:05 01:17 02:11 WBC RBC Hgb Hct MCV MCH MCHC RDW Plt Count [place] % (Auto) Lymph # Seg Neuts % (Manual) Lymphocytes % (Manual) Nucleated RBC % Seg Neutrophils # Man Lymphocytes # (Manual) Monocytes # (Manual) PT INR APTT D-Dimer POC ABG pH ABG pH POC ABG pO2 ABG pO2 ABG HCO3 ABG O2 Saturation ABG Base Excess ABG Hemoglobin VBG pH Oxyhemoglobin Sodium Potassium Chloride Carbon Dioxide BUN Creatinine Glucose POC Glucose 143 H 151 H 155 H Lactic Acid Calcium Phosphorus Magnesium Iron TIBC Direct Bilirubin AST ALT Alkaline Phosphatase Total Creatine Kinase CK-MB (CK-2) C-Reactive Protein Total Protein Albumin Vitamin B12 Salicylates Acetaminophen Miscellaneous Test Crossmatch 04/01/19 04/01/19 04/01/19 03:12 04:03 04:16 WBC RBC Hgb Hct MCV MCH MCHC RDW Plt Count [place] % (Auto) Lymph # Seg Neuts % (Manual) Lymphocytes % (Manual) Nucleated RBC % Seg Neutrophils # Man Lymphocytes # (Manual) Monocytes # (Manual) PT INR APTT D-Dimer POC ABG pH ABG pH POC ABG pO2 ABG pO2 ABG HCO3 ABG O2 Saturation ABG Base Excess ABG Hemoglobin VBG pH Oxyhemoglobin Sodium Potassium Chloride Carbon Dioxide BUN Creatinine Glucose POC Glucose 140 H 143 H 142 H Lactic Acid Calcium Phosphorus Magnesium Iron TIBC Direct Bilirubin AST ALT Alkaline Phosphatase Total Creatine Kinase CK-MB (CK-2) C-Reactive Protein Total Protein Albumin Vitamin B12 Salicylates Acetaminophen Miscellaneous Test Crossmatch 04/01/19 04/01/19 04/01/19 05:01 05:01 05:08 WBC RBC 2.05 L Hgb 6.8 L Hct 20.5 L MCV 100 H MCH 33 H MCHC RDW 17.7 H Plt Count 53 L [place] % (Auto) Lymph # Seg Neuts % (Manual) 71.0 H Lymphocytes % (Manual) Nucleated RBC % Seg Neutrophils # Man Lymphocytes # (Manual) Monocytes # (Manual) PT INR APTT D-Dimer POC ABG pH ABG pH POC ABG pO2 ABG pO2 ABG HCO3 ABG O2 Saturation ABG Base Excess ABG Hemoglobin VBG pH Oxyhemoglobin Sodium Potassium Chloride Carbon Dioxide BUN Creatinine Glucose POC Glucose 119 H Lactic Acid Calcium Phosphorus Magnesium Iron TIBC Direct Bilirubin 0.3 H AST 4601 H ALT 1542 H Alkaline Phosphatase 185 H Total Creatine Kinase CK-MB (CK-2) C-Reactive Protein Total Protein 3.8 L Albumin 1.6 L Vitamin B12 Salicylates Acetaminophen Miscellaneous Test Crossmatch 04/01/19 04/01/19 04/01/19 05:23 06:37 08:15 WBC RBC Hgb Hct MCV MCH MCHC RDW Plt Count [place] % (Auto) Lymph # Seg Neuts % (Manual) Lymphocytes % (Manual) Nucleated RBC % Seg Neutrophils # Man Lymphocytes # (Manual) Monocytes # (Manual) PT INR APTT D-Dimer POC ABG pH ABG pH POC ABG pO2 ABG pO2 ABG HCO3 ABG O2 Saturation ABG Base Excess ABG Hemoglobin VBG pH Oxyhemoglobin Sodium Potassium Chloride Carbon Dioxide BUN Creatinine Glucose POC Glucose 115 H 124 H 138 H Lactic Acid Calcium Phosphorus Magnesium Iron TIBC Direct Bilirubin AST ALT Alkaline Phosphatase Total Creatine Kinase CK-MB (CK-2) C-Reactive Protein Total Protein Albumin Vitamin B12 Salicylates Acetaminophen Miscellaneous Test Crossmatch 04/01/19 04/01/19 04/01/19 09:50 10:10 10:31 WBC RBC Hgb 6.5 L Hct 19.2 L* MCV MCH MCHC RDW Plt Count [place] % (Auto) Lymph # Seg Neuts % (Manual) Lymphocytes % (Manual) Nucleated RBC % Seg Neutrophils # Man Lymphocytes # (Manual) Monocytes # (Manual) PT INR APTT D-Dimer POC ABG pH ABG pH POC ABG pO2 ABG pO2 ABG HCO3 ABG O2 Saturation ABG Base Excess ABG Hemoglobin VBG pH Oxyhemoglobin Sodium 149 H Potassium 3.5 L Chloride 119.9 H Carbon Dioxide 21 L BUN 33 H Creatinine 0.5 L Glucose 142 H POC Glucose 185 H Lactic Acid Calcium 7.3 L Phosphorus Magnesium Iron TIBC Direct Bilirubin AST 3686 H ALT 1440 H Alkaline Phosphatase 185 H Total Creatine Kinase CK-MB (CK-2) C-Reactive Protein Total Protein 3.7 L Albumin 1.8 L Vitamin B12 Salicylates Acetaminophen Miscellaneous Test Crossmatch 04/01/19 04/01/19 04/01/19 11:35 13:05 14:35 WBC RBC Hgb Hct MCV MCH MCHC RDW Plt Count [place] % (Auto) Lymph # Seg Neuts % (Manual) Lymphocytes % (Manual) Nucleated RBC % Seg Neutrophils # Man Lymphocytes # (Manual) Monocytes # (Manual) PT INR APTT D-Dimer POC ABG pH ABG pH POC ABG pO2 ABG pO2 ABG HCO3 ABG O2 Saturation ABG Base Excess ABG Hemoglobin VBG pH Oxyhemoglobin Sodium Potassium Chloride Carbon Dioxide BUN Creatinine Glucose POC Glucose 201 H 169 H 134 H Lactic Acid Calcium Phosphorus Magnesium Iron TIBC Direct Bilirubin AST ALT Alkaline Phosphatase Total Creatine Kinase CK-MB (CK-2) C-Reactive Protein Total Protein Albumin Vitamin B12 Salicylates Acetaminophen Miscellaneous Test Crossmatch 04/01/19 04/01/19 04/01/19 17:13 17:14 18:30 WBC RBC Hgb Hct MCV MCH MCHC RDW Plt Count [place] % (Auto) Lymph # Seg Neuts % (Manual) Lymphocytes % (Manual) Nucleated RBC % Seg Neutrophils # Man Lymphocytes # (Manual) Monocytes # (Manual) PT INR APTT D-Dimer 5203.68 H POC ABG pH ABG pH POC ABG pO2 ABG pO2 ABG HCO3 ABG O2 Saturation ABG Base Excess ABG Hemoglobin VBG pH Oxyhemoglobin Sodium Potassium Chloride Carbon Dioxide BUN Creatinine Glucose POC Glucose 69 L 128 H Lactic Acid Calcium Phosphorus Magnesium Iron TIBC Direct Bilirubin AST ALT Alkaline Phosphatase Total Creatine Kinase CK-MB (CK-2) C-Reactive Protein Total Protein Albumin Vitamin B12 Salicylates Acetaminophen Miscellaneous Test Crossmatch 04/01/19 04/01/19 04/02/19 22:50 Unknown 03:40 WBC RBC Hgb Hct MCV MCH MCHC RDW Plt Count [place] % (Auto) Lymph # Seg Neuts % (Manual) Lymphocytes % (Manual) Nucleated RBC % Seg Neutrophils # Man Lymphocytes # (Manual) Monocytes # (Manual) PT INR APTT D-Dimer POC ABG pH ABG pH POC ABG pO2 ABG pO2 78.3 L 142.8 H ABG HCO3 15.5 L ABG O2 Saturation ABG Base Excess -3.5 L -8.2 L ABG Hemoglobin 6.8 L 8.2 L VBG pH Oxyhemoglobin 94.3 L Sodium Potassium Chloride Carbon Dioxide BUN Creatinine Glucose POC Glucose 342 H Lactic Acid Calcium Phosphorus Magnesium Iron TIBC Direct Bilirubin AST ALT Alkaline Phosphatase Total Creatine Kinase CK-MB (CK-2) C-Reactive Protein Total Protein Albumin Vitamin B12 Salicylates Acetaminophen Miscellaneous Test Crossmatch 04/02/19 04/02/19 04/02/19 03:49 06:50 07:48 WBC RBC 2.65 L Hgb 8.6 L Hct 25.1 L MCV MCH MCHC RDW 17.6 H Plt Count 48 L [place] % (Auto) Lymph # Seg Neuts % (Manual) Lymphocytes % (Manual) Nucleated RBC % Seg Neutrophils # Man Lymphocytes # (Manual) Monocytes # (Manual) PT INR APTT D-Dimer POC ABG pH ABG pH POC ABG pO2 ABG pO2 ABG HCO3 ABG O2 Saturation ABG Base Excess ABG Hemoglobin VBG pH Oxyhemoglobin Sodium Potassium Chloride Carbon Dioxide BUN Creatinine Glucose POC Glucose 247 H 200 H Lactic Acid Calcium Phosphorus Magnesium Iron TIBC Direct Bilirubin AST ALT Alkaline Phosphatase Total Creatine Kinase CK-MB (CK-2) C-Reactive Protein Total Protein Albumin Vitamin B12 Salicylates Acetaminophen Miscellaneous Test Crossmatch 04/02/19 04/02/19 04/02/19 07:48 11:18 14:07 WBC RBC Hgb Hct MCV MCH MCHC RDW Plt Count [place] % (Auto) Lymph # Seg Neuts % (Manual) Lymphocytes % (Manual) Nucleated RBC % Seg Neutrophils # Man Lymphocytes # (Manual) Monocytes # (Manual) PT INR APTT D-Dimer POC ABG pH ABG pH POC ABG pO2 ABG pO2 ABG HCO3 ABG O2 Saturation ABG Base Excess ABG Hemoglobin VBG pH Oxyhemoglobin Sodium Potassium 3.5 L Chloride 115.7 H Carbon Dioxide 19 L BUN 29 H Creatinine 0.5 L Glucose 159 H POC Glucose 154 H 149 H Lactic Acid Calcium 7.5 L Phosphorus Magnesium Iron TIBC Direct Bilirubin AST 1418 H ALT 1134 H Alkaline Phosphatase 242 H Total Creatine Kinase CK-MB (CK-2) C-Reactive Protein Total Protein 4.2 L Albumin 2.1 L Vitamin B12 Salicylates Acetaminophen Miscellaneous Test Crossmatch 04/02/19 04/02/19 04/02/19 18:09 19:46 23:05 WBC RBC Hgb Hct MCV MCH MCHC RDW Plt Count [place] % (Auto) Lymph # Seg Neuts % (Manual) Lymphocytes % (Manual) Nucleated RBC % Seg Neutrophils # Man Lymphocytes # (Manual) Monocytes # (Manual) PT INR APTT D-Dimer POC ABG pH ABG pH POC ABG pO2 ABG pO2 ABG HCO3 ABG O2 Saturation ABG Base Excess ABG Hemoglobin VBG pH Oxyhemoglobin Sodium Potassium Chloride Carbon Dioxide BUN Creatinine Glucose POC Glucose 188 H 209 H 247 H Lactic Acid Calcium Phosphorus Magnesium Iron TIBC Direct Bilirubin AST ALT Alkaline Phosphatase Total Creatine Kinase CK-MB (CK-2) C-Reactive Protein Total Protein Albumin Vitamin B12 Salicylates Acetaminophen Miscellaneous Test Crossmatch 04/03/19 04/03/19 04/03/19 02:58 03:40 03:40 WBC RBC 2.87 L Hgb 9.3 L Hct 27.0 L MCV MCH MCHC RDW 17.2 H Plt Count 65 L [place] % (Auto) 9.8 H Lymph # 1.1 L Seg Neuts % (Manual) Lymphocytes % (Manual) Nucleated RBC % Seg Neutrophils # Man Lymphocytes # (Manual) Monocytes # (Manual) PT INR APTT D-Dimer POC ABG pH ABG pH POC ABG pO2 ABG pO2 ABG HCO3 ABG O2 Saturation ABG Base Excess ABG Hemoglobin VBG pH Oxyhemoglobin Sodium 147 H Potassium 3.5 L Chloride 116.7 H Carbon Dioxide 18 L BUN Creatinine 0.4 L Glucose 150 H POC Glucose 166 H Lactic Acid Calcium 8.1 L Phosphorus 2.20 L Magnesium Iron TIBC Direct Bilirubin AST 594 H ALT 861 H Alkaline Phosphatase 299 H Total Creatine Kinase CK-MB (CK-2) C-Reactive Protein Total Protein 4.4 L Albumin 2.1 L Vitamin B12 Salicylates Acetaminophen Miscellaneous Test Crossmatch 04/03/19 04/03/19 04/03/19 05:35 07:02 08:23 WBC RBC Hgb Hct MCV MCH MCHC RDW Plt Count [place] % (Auto) Lymph # Seg Neuts % (Manual) Lymphocytes % (Manual) Nucleated RBC % Seg Neutrophils # Man Lymphocytes # (Manual) Monocytes # (Manual) PT INR APTT D-Dimer POC ABG pH ABG pH POC ABG pO2 ABG pO2 97.7 H ABG HCO3 19.3 L ABG O2 Saturation ABG Base Excess -5.0 L ABG Hemoglobin 8.0 L VBG pH Oxyhemoglobin Sodium Potassium Chloride Carbon Dioxide BUN Creatinine Glucose POC Glucose 135 H 132 H Lactic Acid Calcium Phosphorus Magnesium Iron TIBC Direct Bilirubin AST ALT Alkaline Phosphatase Total Creatine Kinase CK-MB (CK-2) C-Reactive Protein Total Protein Albumin Vitamin B12 Salicylates Acetaminophen Miscellaneous Test Crossmatch 04/03/19 04/03/19 04/03/19 11:58 15:11 17:53 WBC RBC Hgb Hct MCV MCH MCHC RDW Plt Count [place] % (Auto) Lymph # Seg Neuts % (Manual) Lymphocytes % (Manual) Nucleated RBC % Seg Neutrophils # Man Lymphocytes # (Manual) Monocytes # (Manual) PT INR APTT D-Dimer POC ABG pH ABG pH POC ABG pO2 ABG pO2 ABG HCO3 ABG O2 Saturation ABG Base Excess ABG Hemoglobin VBG pH Oxyhemoglobin Sodium Potassium Chloride Carbon Dioxide BUN Creatinine Glucose POC Glucose 179 H 213 H 223 H Lactic Acid Calcium Phosphorus Magnesium Iron TIBC Direct Bilirubin AST ALT Alkaline Phosphatase Total Creatine Kinase CK-MB (CK-2) C-Reactive Protein Total Protein Albumin Vitamin B12 Salicylates Acetaminophen Miscellaneous Test Crossmatch 04/03/19 04/04/19 04/04/19 23:06 02:36 06:41 WBC RBC Hgb Hct MCV MCH MCHC RDW Plt Count [place] % (Auto) Lymph # Seg Neuts % (Manual) Lymphocytes % (Manual) Nucleated RBC % Seg Neutrophils # Man Lymphocytes # (Manual) Monocytes # (Manual) PT INR APTT D-Dimer POC ABG pH ABG pH POC ABG pO2 ABG pO2 ABG HCO3 ABG O2 Saturation ABG Base Excess ABG Hemoglobin VBG pH Oxyhemoglobin Sodium Potassium Chloride Carbon Dioxide BUN Creatinine Glucose POC Glucose 189 H 157 H 131 H Lactic Acid Calcium Phosphorus Magnesium Iron TIBC Direct Bilirubin AST ALT Alkaline Phosphatase Total Creatine Kinase CK-MB (CK-2) C-Reactive Protein Total Protein Albumin Vitamin B12 Salicylates Acetaminophen Miscellaneous Test Crossmatch 04/04/19 04/04/19 04/04/19 11:42 15:45 18:21 WBC RBC Hgb Hct MCV MCH MCHC RDW Plt Count [place] % (Auto) Lymph # Seg Neuts % (Manual) Lymphocytes % (Manual) Nucleated RBC % Seg Neutrophils # Man Lymphocytes # (Manual) Monocytes # (Manual) PT INR APTT D-Dimer POC ABG pH ABG pH POC ABG pO2 ABG pO2 ABG HCO3 ABG O2 Saturation ABG Base Excess ABG Hemoglobin VBG pH Oxyhemoglobin Sodium Potassium Chloride Carbon Dioxide BUN Creatinine Glucose POC Glucose 233 H 236 H 255 H Lactic Acid Calcium Phosphorus Magnesium Iron TIBC Direct Bilirubin AST ALT Alkaline Phosphatase Total Creatine Kinase CK-MB (CK-2) C-Reactive Protein Total Protein Albumin Vitamin B12 Salicylates Acetaminophen Miscellaneous Test Crossmatch 04/04/19 04/05/19 04/05/19 21:21 03:06 06:05 WBC RBC 2.68 L Hgb 8.5 L Hct 26.3 L MCV 98 H MCH MCHC RDW 17.4 H Plt Count [place] % (Auto) Lymph # Seg Neuts % (Manual) Lymphocytes % (Manual) Nucleated RBC % Seg Neutrophils # Man Lymphocytes # (Manual) Monocytes # (Manual) PT INR APTT D-Dimer POC ABG pH ABG pH POC ABG pO2 ABG pO2 ABG HCO3 ABG O2 Saturation ABG Base Excess ABG Hemoglobin VBG pH Oxyhemoglobin Sodium Potassium Chloride Carbon Dioxide BUN Creatinine Glucose POC Glucose 132 H 161 H Lactic Acid Calcium Phosphorus Magnesium Iron TIBC Direct Bilirubin AST ALT Alkaline Phosphatase Total Creatine Kinase CK-MB (CK-2) C-Reactive Protein Total Protein Albumin Vitamin B12 Salicylates Acetaminophen Miscellaneous Test Crossmatch 04/05/19 04/05/19 04/05/19 06:05 06:49 10:23 WBC RBC Hgb Hct MCV MCH MCHC RDW Plt Count [place] % (Auto) Lymph # Seg Neuts % (Manual) Lymphocytes % (Manual) Nucleated RBC % Seg Neutrophils # Man Lymphocytes # (Manual) Monocytes # (Manual) PT INR APTT D-Dimer POC ABG pH ABG pH POC ABG pO2 ABG pO2 ABG HCO3 ABG O2 Saturation ABG Base Excess ABG Hemoglobin VBG pH Oxyhemoglobin Sodium Potassium Chloride 112.5 H Carbon Dioxide BUN Creatinine 0.2 L Glucose 237 H POC Glucose 283 H 296 H Lactic Acid Calcium 7.9 L Phosphorus Magnesium Iron TIBC Direct Bilirubin AST ALT Alkaline Phosphatase Total Creatine Kinase CK-MB (CK-2) C-Reactive Protein Total Protein Albumin Vitamin B12 Salicylates Acetaminophen Miscellaneous Test Crossmatch 04/05/19 04/05/19 04/05/19 14:46 18:19 20:35 WBC RBC Hgb Hct MCV MCH MCHC RDW Plt Count [place] % (Auto) Lymph # Seg Neuts % (Manual) Lymphocytes % (Manual) Nucleated RBC % Seg Neutrophils # Man Lymphocytes # (Manual) Monocytes # (Manual) PT INR APTT D-Dimer POC ABG pH ABG pH POC ABG pO2 ABG pO2 ABG HCO3 ABG O2 Saturation ABG Base Excess ABG Hemoglobin VBG pH Oxyhemoglobin Sodium Potassium Chloride Carbon Dioxide BUN Creatinine Glucose POC Glucose 225 H 259 H 236 H Lactic Acid Calcium Phosphorus Magnesium Iron TIBC Direct Bilirubin AST ALT Alkaline Phosphatase Total Creatine Kinase CK-MB (CK-2) C-Reactive Protein Total Protein Albumin Vitamin B12 Salicylates Acetaminophen Miscellaneous Test Crossmatch 04/05/19 04/06/19 04/06/19 23:11 00:06 03:14 WBC RBC Hgb Hct MCV MCH MCHC RDW Plt Count [place] % (Auto) Lymph # Seg Neuts % (Manual) Lymphocytes % (Manual) Nucleated RBC % Seg Neutrophils # Man Lymphocytes # (Manual) Monocytes # (Manual) PT INR APTT D-Dimer 4526.86 H POC ABG pH ABG pH POC ABG pO2 ABG pO2 ABG HCO3 ABG O2 Saturation ABG Base Excess ABG Hemoglobin VBG pH Oxyhemoglobin Sodium Potassium Chloride Carbon Dioxide BUN Creatinine Glucose POC Glucose 205 H 228 H Lactic Acid Calcium Phosphorus Magnesium Iron TIBC Direct Bilirubin AST ALT Alkaline Phosphatase Total Creatine Kinase CK-MB (CK-2) C-Reactive Protein Total Protein Albumin Vitamin B12 Salicylates Acetaminophen Miscellaneous Test Crossmatch 04/06/19 04/06/19 04/06/19 05:20 05:20 07:57 WBC 15.1 H RBC 2.90 L Hgb 9.1 L Hct 28.0 L MCV MCH MCHC RDW 17.3 H Plt Count [place] % (Auto) Lymph # Seg Neuts % (Manual) Lymphocytes % (Manual) Nucleated RBC % Seg Neutrophils # Man Lymphocytes # (Manual) Monocytes # (Manual) PT INR APTT D-Dimer POC ABG pH ABG pH POC ABG pO2 ABG pO2 ABG HCO3 ABG O2 Saturation ABG Base Excess ABG Hemoglobin VBG pH Oxyhemoglobin Sodium Potassium Chloride Carbon Dioxide BUN Creatinine 0.2 L Glucose 161 H POC Glucose 191 H Lactic Acid Calcium 8.0 L Phosphorus Magnesium Iron TIBC Direct Bilirubin AST ALT Alkaline Phosphatase Total Creatine Kinase CK-MB (CK-2) C-Reactive Protein Total Protein Albumin Vitamin B12 Salicylates Acetaminophen Miscellaneous Test Crossmatch 04/06/19 04/06/19 04/06/19 12:09 18:24 22:07 WBC RBC Hgb Hct MCV MCH MCHC RDW Plt Count [place] % (Auto) Lymph # Seg Neuts % (Manual) Lymphocytes % (Manual) Nucleated RBC % Seg Neutrophils # Man Lymphocytes # (Manual) Monocytes # (Manual) PT INR APTT D-Dimer POC ABG pH ABG pH POC ABG pO2 ABG pO2 ABG HCO3 ABG O2 Saturation ABG Base Excess ABG Hemoglobin VBG pH Oxyhemoglobin Sodium Potassium Chloride Carbon Dioxide BUN Creatinine Glucose POC Glucose 143 H 161 H 140 H Lactic Acid Calcium Phosphorus Magnesium Iron TIBC Direct Bilirubin AST ALT Alkaline Phosphatase Total Creatine Kinase CK-MB (CK-2) C-Reactive Protein Total Protein Albumin Vitamin B12 Salicylates Acetaminophen Miscellaneous Test Crossmatch 04/07/19 04/07/19 04/07/19 03:00 04:30 04:30 WBC 13.0 H RBC 2.65 L Hgb 8.3 L Hct 25.5 L MCV MCH MCHC RDW 17.0 H Plt Count [place] % (Auto) Lymph # Seg Neuts % (Manual) Lymphocytes % (Manual) Nucleated RBC % Seg Neutrophils # Man Lymphocytes # (Manual) Monocytes # (Manual) PT INR APTT D-Dimer POC ABG pH ABG pH POC ABG pO2 ABG pO2 ABG HCO3 ABG O2 Saturation ABG Base Excess ABG Hemoglobin VBG pH Oxyhemoglobin Sodium Potassium Chloride Carbon Dioxide BUN Creatinine 0.2 L Glucose 208 H POC Glucose 224 H Lactic Acid Calcium 7.7 L Phosphorus Magnesium Iron TIBC Direct Bilirubin AST ALT Alkaline Phosphatase Total Creatine Kinase CK-MB (CK-2) C-Reactive Protein Total Protein Albumin Vitamin B12 Salicylates Acetaminophen Miscellaneous Test Crossmatch 04/07/19 04/07/19 04/07/19 05:47 08:27 10:33 WBC RBC Hgb Hct MCV MCH MCHC RDW Plt Count [place] % (Auto) Lymph # Seg Neuts % (Manual) Lymphocytes % (Manual) Nucleated RBC % Seg Neutrophils # Man Lymphocytes # (Manual) Monocytes # (Manual) PT INR APTT D-Dimer POC ABG pH ABG pH POC ABG pO2 ABG pO2 ABG HCO3 ABG O2 Saturation ABG Base Excess ABG Hemoglobin VBG pH Oxyhemoglobin Sodium Potassium Chloride Carbon Dioxide BUN Creatinine Glucose POC Glucose 225 H 176 H 207 H Lactic Acid Calcium Phosphorus Magnesium Iron TIBC Direct Bilirubin AST ALT Alkaline Phosphatase Total Creatine Kinase CK-MB (CK-2) C-Reactive Protein Total Protein Albumin Vitamin B12 Salicylates Acetaminophen Miscellaneous Test Crossmatch 04/07/19 04/07/19 04/07/19 14:13 18:32 22:42 WBC RBC Hgb Hct MCV MCH MCHC RDW Plt Count [place] % (Auto) Lymph # Seg Neuts % (Manual) Lymphocytes % (Manual) Nucleated RBC % Seg Neutrophils # Man Lymphocytes # (Manual) Monocytes # (Manual) PT INR APTT D-Dimer POC ABG pH ABG pH POC ABG pO2 ABG pO2 ABG HCO3 ABG O2 Saturation ABG Base Excess ABG Hemoglobin VBG pH Oxyhemoglobin Sodium Potassium Chloride Carbon Dioxide BUN Creatinine Glucose POC Glucose 219 H 227 H 238 H Lactic Acid Calcium Phosphorus Magnesium Iron TIBC Direct Bilirubin AST ALT Alkaline Phosphatase Total Creatine Kinase CK-MB (CK-2) C-Reactive Protein Total Protein Albumin Vitamin B12 Salicylates Acetaminophen Miscellaneous Test Crossmatch 04/08/19 04/08/19 04/08/19 02:31 05:37 14:10 WBC RBC Hgb Hct MCV MCH MCHC RDW Plt Count [place] % (Auto) Lymph # Seg Neuts % (Manual) Lymphocytes % (Manual) Nucleated RBC % Seg Neutrophils # Man Lymphocytes # (Manual) Monocytes # (Manual) PT INR APTT D-Dimer POC ABG pH ABG pH POC ABG pO2 ABG pO2 ABG HCO3 ABG O2 Saturation ABG Base Excess ABG Hemoglobin VBG pH Oxyhemoglobin Sodium Potassium Chloride Carbon Dioxide BUN Creatinine Glucose POC Glucose 194 H 194 H 139 H Lactic Acid Calcium Phosphorus Magnesium Iron TIBC Direct Bilirubin AST ALT Alkaline Phosphatase Total Creatine Kinase CK-MB (CK-2) C-Reactive Protein Total Protein Albumin Vitamin B12 Salicylates Acetaminophen Miscellaneous Test Crossmatch 04/08/19 04/08/19 04/09/19 17:43 23:20 03:28 WBC RBC Hgb Hct MCV MCH MCHC RDW Plt Count [place] % (Auto) Lymph # Seg Neuts % (Manual) Lymphocytes % (Manual) Nucleated RBC % Seg Neutrophils # Man Lymphocytes # (Manual) Monocytes # (Manual) PT INR APTT D-Dimer POC ABG pH ABG pH POC ABG pO2 ABG pO2 ABG HCO3 ABG O2 Saturation ABG Base Excess ABG Hemoglobin VBG pH Oxyhemoglobin Sodium Potassium Chloride Carbon Dioxide BUN Creatinine Glucose POC Glucose 261 H 277 H 301 H Lactic Acid Calcium Phosphorus Magnesium Iron TIBC Direct Bilirubin AST ALT Alkaline Phosphatase Total Creatine Kinase CK-MB (CK-2) C-Reactive Protein Total Protein Albumin Vitamin B12 Salicylates Acetaminophen Miscellaneous Test Crossmatch 04/09/19 04/09/19 04/09/19 05:35 05:35 05:35 WBC RBC 2.78 L Hgb 9.0 L Hct 26.7 L MCV MCH MCHC RDW 17.0 H Plt Count [place] % (Auto) Lymph # Seg Neuts % (Manual) Lymphocytes % (Manual) Nucleated RBC % Seg Neutrophils # Man Lymphocytes # (Manual) Monocytes # (Manual) PT INR APTT D-Dimer POC ABG pH ABG pH POC ABG pO2 ABG pO2 ABG HCO3 ABG O2 Saturation ABG Base Excess ABG Hemoglobin VBG pH Oxyhemoglobin Sodium Potassium Chloride Carbon Dioxide 31 H BUN Creatinine 0.2 L Glucose 218 H POC Glucose 240 H Lactic Acid Calcium Phosphorus Magnesium Iron TIBC Direct Bilirubin AST ALT Alkaline Phosphatase Total Creatine Kinase CK-MB (CK-2) C-Reactive Protein Total Protein Albumin Vitamin B12 Salicylates Acetaminophen Miscellaneous Test Crossmatch 04/09/19 04/09/19 04/09/19 09:01 12:23 17:33 WBC RBC Hgb Hct MCV MCH MCHC RDW Plt Count [place] % (Auto) Lymph # Seg Neuts % (Manual) Lymphocytes % (Manual) Nucleated RBC % Seg Neutrophils # Man Lymphocytes # (Manual) Monocytes # (Manual) PT INR APTT D-Dimer POC ABG pH ABG pH POC ABG pO2 ABG pO2 ABG HCO3 ABG O2 Saturation ABG Base Excess ABG Hemoglobin VBG pH Oxyhemoglobin Sodium Potassium Chloride Carbon Dioxide BUN Creatinine Glucose POC Glucose 160 H 162 H 149 H Lactic Acid Calcium Phosphorus Magnesium Iron TIBC Direct Bilirubin AST ALT Alkaline Phosphatase Total Creatine Kinase CK-MB (CK-2) C-Reactive Protein Total Protein Albumin Vitamin B12 Salicylates Acetaminophen Miscellaneous Test Crossmatch 04/09/19 04/09/19 04/10/19 21:26 22:28 03:16 WBC RBC Hgb Hct MCV MCH MCHC RDW Plt Count [place] % (Auto) Lymph # Seg Neuts % (Manual) Lymphocytes % (Manual) Nucleated RBC % Seg Neutrophils # Man Lymphocytes # (Manual) Monocytes # (Manual) PT INR APTT D-Dimer POC ABG pH ABG pH POC ABG pO2 ABG pO2 ABG HCO3 ABG O2 Saturation ABG Base Excess ABG Hemoglobin VBG pH Oxyhemoglobin Sodium Potassium Chloride Carbon Dioxide BUN Creatinine Glucose POC Glucose 196 H 224 H 163 H Lactic Acid Calcium Phosphorus Magnesium Iron TIBC Direct Bilirubin AST ALT Alkaline Phosphatase Total Creatine Kinase CK-MB (CK-2) C-Reactive Protein Total Protein Albumin Vitamin B12 Salicylates Acetaminophen Miscellaneous Test Crossmatch 04/10/19 04/10/19 04/10/19 04:15 04:15 05:30 WBC RBC 2.88 L Hgb 9.2 L Hct 27.9 L MCV MCH MCHC RDW 17.0 H Plt Count 454 H [place] % (Auto) Lymph # Seg Neuts % (Manual) Lymphocytes % (Manual) Nucleated RBC % Seg Neutrophils # Man Lymphocytes # (Manual) Monocytes # (Manual) PT INR APTT D-Dimer POC ABG pH ABG pH POC ABG pO2 ABG pO2 ABG HCO3 ABG O2 Saturation ABG Base Excess ABG Hemoglobin VBG pH Oxyhemoglobin Sodium Potassium Chloride Carbon Dioxide 32 H BUN Creatinine 0.2 L Glucose 126 H POC Glucose 135 H Lactic Acid Calcium Phosphorus Magnesium Iron TIBC Direct Bilirubin AST ALT Alkaline Phosphatase Total Creatine Kinase CK-MB (CK-2) C-Reactive Protein Total Protein Albumin Vitamin B12 Salicylates Acetaminophen Miscellaneous Test Crossmatch 04/10/19 04/10/19 04/10/19 12:14 15:29 23:38 WBC RBC Hgb Hct MCV MCH MCHC RDW Plt Count [place] % (Auto) Lymph # Seg Neuts % (Manual) Lymphocytes % (Manual) Nucleated RBC % Seg Neutrophils # Man Lymphocytes # (Manual) Monocytes # (Manual) PT INR APTT D-Dimer POC ABG pH ABG pH POC ABG pO2 ABG pO2 ABG HCO3 ABG O2 Saturation ABG Base Excess ABG Hemoglobin VBG pH Oxyhemoglobin Sodium Potassium Chloride Carbon Dioxide BUN Creatinine Glucose POC Glucose 109 H 149 H 268 H Lactic Acid Calcium Phosphorus Magnesium Iron TIBC Direct Bilirubin AST ALT Alkaline Phosphatase Total Creatine Kinase CK-MB (CK-2) C-Reactive Protein Total Protein Albumin Vitamin B12 Salicylates Acetaminophen Miscellaneous Test Crossmatch 04/11/19 04/11/19 04/11/19 05:27 12:08 18:08 WBC RBC Hgb Hct MCV MCH MCHC RDW Plt Count [place] % (Auto) Lymph # Seg Neuts % (Manual) Lymphocytes % (Manual) Nucleated RBC % Seg Neutrophils # Man Lymphocytes # (Manual) Monocytes # (Manual) PT INR APTT D-Dimer POC ABG pH ABG pH POC ABG pO2 ABG pO2 ABG HCO3 ABG O2 Saturation ABG Base Excess ABG Hemoglobin VBG pH Oxyhemoglobin Sodium Potassium Chloride Carbon Dioxide BUN Creatinine Glucose POC Glucose 109 H 185 H 190 H Lactic Acid Calcium Phosphorus Magnesium Iron TIBC Direct Bilirubin AST ALT Alkaline Phosphatase Total Creatine Kinase CK-MB (CK-2) C-Reactive Protein Total Protein Albumin Vitamin B12 Salicylates Acetaminophen Miscellaneous Test Crossmatch 04/11/19 04/12/19 04/12/19 23:23 06:00 11:42 WBC RBC Hgb Hct MCV MCH MCHC RDW Plt Count [place] % (Auto) Lymph # Seg Neuts % (Manual) Lymphocytes % (Manual) Nucleated RBC % Seg Neutrophils # Man Lymphocytes # (Manual) Monocytes # (Manual) PT INR APTT D-Dimer POC ABG pH ABG pH POC ABG pO2 ABG pO2 ABG HCO3 ABG O2 Saturation ABG Base Excess ABG Hemoglobin VBG pH Oxyhemoglobin Sodium Potassium Chloride Carbon Dioxide BUN Creatinine Glucose POC Glucose 127 H 201 H 161 H Lactic Acid Calcium Phosphorus Magnesium Iron TIBC Direct Bilirubin AST ALT Alkaline Phosphatase Total Creatine Kinase CK-MB (CK-2) C-Reactive Protein Total Protein Albumin Vitamin B12 Salicylates Acetaminophen Miscellaneous Test Crossmatch 04/12/19 04/12/19 04/12/19 17:56 20:07 21:59 WBC RBC Hgb Hct MCV MCH MCHC RDW Plt Count [place] % (Auto) Lymph # Seg Neuts % (Manual) Lymphocytes % (Manual) Nucleated RBC % Seg Neutrophils # Man Lymphocytes # (Manual) Monocytes # (Manual) PT INR APTT D-Dimer POC ABG pH ABG pH POC ABG pO2 ABG pO2 ABG HCO3 ABG O2 Saturation ABG Base Excess ABG Hemoglobin VBG pH Oxyhemoglobin Sodium Potassium Chloride Carbon Dioxide BUN Creatinine Glucose POC Glucose 145 H 158 H 203 H Lactic Acid Calcium Phosphorus Magnesium Iron TIBC Direct Bilirubin AST ALT Alkaline Phosphatase Total Creatine Kinase CK-MB (CK-2) C-Reactive Protein Total Protein Albumin Vitamin B12 Salicylates Acetaminophen Miscellaneous Test Crossmatch 04/12/19 04/13/19 04/13/19 23:37 08:50 08:50 WBC 15.7 H RBC 3.12 L Hgb Hct 30.2 L MCV MCH 33 H MCHC RDW 18.0 H Plt Count 678 H [place] % (Auto) Lymph # Seg Neuts % (Manual) Lymphocytes % (Manual) Nucleated RBC % Seg Neutrophils # Man Lymphocytes # (Manual) Monocytes # (Manual) PT INR APTT D-Dimer POC ABG pH ABG pH POC ABG pO2 ABG pO2 ABG HCO3 ABG O2 Saturation ABG Base Excess ABG Hemoglobin VBG pH Oxyhemoglobin Sodium Potassium Chloride Carbon Dioxide BUN Creatinine < 0.2 L Glucose 46 L POC Glucose 238 H Lactic Acid Calcium Phosphorus Magnesium Iron TIBC Direct Bilirubin AST ALT Alkaline Phosphatase Total Creatine Kinase CK-MB (CK-2) C-Reactive Protein Total Protein Albumin Vitamin B12 Salicylates Acetaminophen Miscellaneous Test Crossmatch 04/13/19 04/13/19 04/13/19 11:56 17:27 23:57 WBC RBC Hgb Hct MCV MCH MCHC RDW Plt Count [place] % (Auto) Lymph # Seg Neuts % (Manual) Lymphocytes % (Manual) Nucleated RBC % Seg Neutrophils # Man Lymphocytes # (Manual) Monocytes # (Manual) PT INR APTT D-Dimer POC ABG pH ABG pH POC ABG pO2 ABG pO2 ABG HCO3 ABG O2 Saturation ABG Base Excess ABG Hemoglobin VBG pH Oxyhemoglobin Sodium Potassium Chloride Carbon Dioxide BUN Creatinine Glucose POC Glucose 40 L 66 L 65 L Lactic Acid Calcium Phosphorus Magnesium Iron TIBC Direct Bilirubin AST ALT Alkaline Phosphatase Total Creatine Kinase CK-MB (CK-2) C-Reactive Protein Total Protein Albumin Vitamin B12 Salicylates Acetaminophen Miscellaneous Test Crossmatch 04/14/19 04/14/19 04/14/19 05:28 08:20 08:20 WBC 17.8 H RBC 3.26 L Hgb Hct MCV 98 H MCH MCHC RDW 18.3 H Plt Count 622 H [place] % (Auto) Lymph # Seg Neuts % (Manual) Lymphocytes % (Manual) Nucleated RBC % Seg Neutrophils # Man Lymphocytes # (Manual) Monocytes # (Manual) PT INR APTT D-Dimer POC ABG pH ABG pH POC ABG pO2 ABG pO2 ABG HCO3 ABG O2 Saturation ABG Base Excess ABG Hemoglobin VBG pH Oxyhemoglobin Sodium Potassium Chloride Carbon Dioxide BUN 6 L Creatinine < 0.2 L Glucose 154 H POC Glucose 149 H Lactic Acid Calcium Phosphorus Magnesium Iron TIBC Direct Bilirubin AST ALT Alkaline Phosphatase Total Creatine Kinase CK-MB (CK-2) C-Reactive Protein Total Protein Albumin Vitamin B12 Salicylates Acetaminophen Miscellaneous Test Crossmatch Chest x-ray: image reviewed (trach in good position now) Allied health notes reviewed: nursing
[2019-04-14] MEDS: SUBLIMAZE IV PRN (13:17)
--- NOTE | 2019-04-14 15:58 | Progress Note ---
Assessment and Plan 29 yo F s/p percutaneous tracheostomy, fiberoptic bronchoscopy and PEG tube placement, POD 1 Plan: 1. adv TF as tolerated 2. vent management per ICU 3. will s/o Thank you, please call with questions. Subjective Date of service: 04/14/19 Narrative: Pt seen and examined. No overnight events. On CPAP on vent Objective Vital Signs - 12hr 04/14/19 04/14/19 04/14/19 04:00 04:15 05:00 Temperature Pulse Rate 117 H 116 H 118 H Pulse Rate [ 116 H From Monitor] Pulse Rate [ Right Radial] Respiratory 20 19 Rate Blood Pressure 140/93 127/97 124/89 O2 Sat by Pulse 100 100 98 Oximetry 04/14/19 04/14/19 04/14/19 06:00 07:00 07:52 Temperature 98.0 F Pulse Rate 122 H 139 H Pulse Rate [ From Monitor] Pulse Rate [ Right Radial] Respiratory 18 17 Rate Blood Pressure 131/93 129/92 O2 Sat by Pulse 100 99 Oximetry 04/14/19 04/14/19 04/14/19 08:00 08:50 09:00 Temperature Pulse Rate 126 H 133 H 136 H Pulse Rate [ From Monitor] Pulse Rate [ 132 H Right Radial] Respiratory 17 19 22 Rate Blood Pressure 126/90 127/79 124/86 O2 Sat by Pulse 100 100 96 Oximetry 04/14/19 04/14/19 04/14/19 10:00 11:00 12:00 Temperature 98.8 F Pulse Rate 136 H 126 H Pulse Rate [ From Monitor] Pulse Rate [ Right Radial] Respiratory 18 21 Rate Blood Pressure 135/92 142/90 O2 Sat by Pulse 99 100 Oximetry 04/14/19 12:10 Temperature Pulse Rate 115 H Pulse Rate [ From Monitor] Pulse Rate [ Right Radial] Respiratory 16 Rate Blood Pressure 122/89 O2 Sat by Pulse 100 Oximetry - General physical appearance Narrative Exam: Gen: On vent. NAD ENT: trach in place, no bleeding or swelling CV: s1, S2+ Resp: on vent Abd: soft, NT, ND. PEG tube in place and site is c/d/i Ext: contracted - Labs 04/14/19 08:20 04/14/19 08:20 Diabetes panel 04/14/19 Range/Units 08:20 Sodium 138 (137-145) mmol/L Potassium 4.3 (3.6-5.0) mmol/L Chloride 104.4 (98-107) mmol/L Carbon Dioxide 25 (22-30) mmol/L BUN 6 L (7-17) mg/dL Creatinine < 0.2 L (0.7-1.2) mg/dL Glucose 154 H (65-100) mg/dL Calcium 8.7 (8.4-10.2) mg/dL Calcium panel 04/14/19 Range/Units 08:20 Calcium 8.7 (8.4-10.2) mg/dL Pituitary panel 04/14/19 Range/Units 08:20 Sodium 138 (137-145) mmol/L Potassium 4.3 (3.6-5.0) mmol/L Chloride 104.4 (98-107) mmol/L Carbon Dioxide 25 (22-30) mmol/L BUN 6 L (7-17) mg/dL Creatinine < 0.2 L (0.7-1.2) mg/dL Glucose 154 H (65-100) mg/dL Calcium 8.7 (8.4-10.2) mg/dL Adrenal panel 04/14/19 Range/Units 08:20 Sodium 138 (137-145) mmol/L Potassium 4.3 (3.6-5.0) mmol/L Chloride 104.4 (98-107) mmol/L Carbon Dioxide 25 (22-30) mmol/L BUN 6 L (7-17) mg/dL Creatinine < 0.2 L (0.7-1.2) mg/dL Glucose 154 H (65-100) mg/dL Calcium 8.7 (8.4-10.2) mg/dL
[2019-04-14] MEDS: DURAGESIC TD SCH (17:23)
[2019-04-14] MEDS: SODIUM CHLORIDE FLUSH SYRINGE 10 ML IV SCH ×2 (17:24→21:55)
[2019-04-14] MEDS: METOPROLOL PO SCH (21:54)
[2019-04-14] MEDS: LANTUS SUB-Q SCH (21:55)
[2019-04-15] MEDS: HumuLIN R SUB-Q SCH ×5 (01:00→18:11)
--- NOTE | 2019-04-15 02:52 | XRay Report ---
CHEST 1 VIEW 04/15/2019 2:06 AM INDICATION / CLINICAL INFORMATION: atelectasis. COMPARISON: 04/14/2019 FINDINGS: SUPPORT DEVICES: Stable satisfactory device positioning. HEART / MEDIASTINUM: No significant abnormality. LUNGS / PLEURA: Stable left lower lobe atelectasis. No pneumothorax. ADDITIONAL FINDINGS: No significant additional findings. IMPRESSION: 1. Stable left lower lobe atelectasis. No adverse change from prior. Signer Name: Pantera Hernandez MD Signed: 04/15/2019 2:48 AM Workstation Name: [employer]
[2019-04-15] MEDS ORDERED: BUMEX IV ONE (09:30)
--- NOTE | 2019-04-15 09:36 | Progress Note ---
Assessment and Plan Assessment and plan: Patient is 29 year old woman with a history of diabetes was brought to the emergency room following a cardiac arrest. Her last well-known time was 10:30 in the morning, she was traveling with a friend, she was unresponsive in the back seat. EMS was called, CPR was started and continued here in the emergency room. Patient was intubated in the ER, noted hypotensive started on dobutamine, epinephrine and Levophed drip, given IV fluids, found to be in DKA with BG ~2200, several metabolic derangements - placed on insulin drip and admitted to ICU. BP improved and she was weaned off pressors. Still intubated on vent, minimal response. patient has been in coma for several days, no improvement. She has a DNR status order. Acute respiratory failure s/p intubated, on vent - on vent, cont nebs, - Worsening atalectasis, on chest xray, will discuss with pulmonary. Repeat xray in am. Monitor Leukoctosis - s/p Trach POD 2 - Pulm following - Aspiration precautions - VAP bundle Acute anoxic encephalopathy, POA - from cardiac arrest - Neurology following -MR concerning for anoxic Brain injury Cardiac arrest s/p resuscitation - likely 2/2 severe hyperglycemia - preserved EF on 2D echo Generalized Anasacar -Give a dose of Bumex DKA, severe - BG was >2200 on admission - s/p insulin drip. cont iv fluid - monitor BG q4h, on TF and on subqu insulin - adjust dose as needed Shock hypotensive vs sepsis - Now off pressors. Was on vasopressin, Levophed, Phenylephrine Sepsis with possible aspiration PNA - evident on CXR on admission with left sided infiltrates - cont abx per ID - Competed abx - Abx discontinued following notation that no evidence of liver lesion not consistent with infection per ID -Leucocytosis and thrombocytosis are likely reactive from hepatic subcapsular hematoma Head lice Permethin given isolation Acute renal failure, likely vasomotor nephropathy - resolved - cont iv fluid, monitor BMP Anemia, acute on chronic - no sign of blood loss s/p 2 Units PRBC transfused Hyperkalemia, resolved with fluid and insulin Hypernatremia Resolved hypokalemia, resolved Shock liver with elevated LFT and Coagulopathy - due to cardiac arrest and hypotension - cont to monitor Liver lesion ? abscess ID Physician following Discontinued abx, not consistent with infection as noted above Hypermagnesemia Hyperphosphatemia -cont to monitor, improved Stage 1 sacral ulcer upper ext blisters pressure ulcer prevention strategies VT Prophylaxis with Lovenox Poor prognosis discussed with mother at bedside. DNR status Mother has decided on DNR status The high probability of a clinically significant, sudden or life threatening deterioration of the [multiple] system(s) required my full and direct attention, intervention and personal management. The aggregate critical care time was [33] minutes. This time is in addition to time spent performing reported procedures but includes the following: [x] Data Review and interpretation [x] Patient assessment and monitoring of vital signs [x] Documentation [x] Medication orders and management History Interval history: Patient seen and examined, opens eyes spontaneously but remains unresponsive, on the vent Still intubated, still not following commands, No Fever. Patient is for Trach and peg today Hospitalist Physical - Physical exam Narrative exam: Gen: On full MVS and tolerating HEENT: facial edema, atraumatic. Trach bed clean with no drainage, opens eyes spontanously Neck: supple, no JVD Heart: S1 and S2 reg, Tachycardia, no murmurs, rubs or gallop Lungs: Clear to auscultation, no rhonchi, no wheeze Abd: soft, non tender, non distended, normal BS, Ext: anasarca, leg edema, no cyanosis Neuro: Minimal responsive, does not follow commands, Skin: see full skin assessment. Stage 1 sacral ulcer - Constitutional Vitals: Temp Pulse Resp BP Pulse Ox 98.4 F 110 H 15 124/70 100 04/15/19 07:59 04/15/19 09:18 04/15/19 07:00 04/15/19 07:00 04/15/19 09:18 General appearance: Present: other (intubated) Results - Labs CBC & Chem 7: 04/14/19 08:20 04/14/19 08:20 Labs: Laboratory Last Values WBC 17.8 K/mm3 (4.5-11.0) H 04/14/19 08:20 RBC 3.26 M/mm3 (3.65-5.03) L 04/14/19 08:20 Hgb 10.5 gm/dl (10.1-14.3) 04/14/19 08:20 Hct 32.0 % (30.3-42.9) 04/14/19 08:20 MCV 98 fl (79-97) H 04/14/19 08:20 MCH 32 pg (28-32) 04/14/19 08:20 MCHC 33 % (30-34) 04/14/19 08:20 RDW 18.3 % (13.2-15.2) H 04/14/19 08:20 Plt Count 622 K/mm3 (140-440) H 04/14/19 08:20 Lymph % (Auto) 16.9 % (13.4-35.0) 04/03/19 03:40 [place] % (Auto) 9.8 % (0.0-7.3) H 04/03/19 03:40 Eos % (Auto) 3.2 % (0.0-4.3) 04/03/19 03:40 Baso % (Auto) 0.4 % (0.0-1.8) 04/03/19 03:40 Lymph # 1.1 K/mm3 (1.2-5.4) L 04/03/19 03:40 [place] # 0.6 K/mm3 (0.0-0.8) 04/03/19 03:40 Eos # 0.2 K/mm3 (0.0-0.4) 04/03/19 03:40 Baso # 0.0 K/mm3 (0.0-0.1) 04/03/19 03:40 Add Manual Diff Complete 04/01/19 05:01 Total Counted 100 04/01/19 05:01 Seg Neutrophils % 69.7 % (40.0-70.0) 04/03/19 03:40 Seg Neuts % (Manual) 71.0 % (40.0-70.0) H 04/01/19 05:01 0 % 04/01/19 05:01 20.0 % (13.4-35.0) 04/01/19 05:01 Reactive Lymphs % (Man) 0 % 04/01/19 05:01 7.0 % (0.0-7.3) 04/01/19 05:01 2.0 % (0.0-4.3) 04/01/19 05:01 0 % (0.0-1.8) 04/01/19 05:01 0 % 04/01/19 05:01 0 % 04/01/19 05:01 0 % 04/01/19 05:01 0 % 04/01/19 05:01 Nucleated RBC % Not Reportable 04/01/19 05:01 Seg Neutrophils # 4.4 K/mm3 (1.8-7.7) 04/03/19 03:40 Seg Neutrophils # Man 4.8 K/mm3 (1.8-7.7) 04/01/19 05:01 Band Neutrophils # 0.0 K/mm3 04/01/19 05:01 1.4 K/mm3 (1.2-5.4) 04/01/19 05:01 Abs React Lymphs (Man) 0.0 K/mm3 04/01/19 05:01 0.5 K/mm3 (0.0-0.8) 04/01/19 05:01 0.1 K/mm3 (0.0-0.4) 04/01/19 05:01 0.0 K/mm3 (0.0-0.1) 04/01/19 05:01 0.0 K/mm3 04/01/19 05:01 0.0 K/mm3 04/01/19 05:01 0.0 K/mm3 04/01/19 05:01 Blast Cells # 0.0 K/mm3 04/01/19 05:01 WBC Morphology Not Reportable 04/01/19 05:01 Hypersegmented Neuts Not Reportable 04/01/19 05:01 Hyposegmented Neuts Not Reportable 04/01/19 05:01 Hypogranular Neuts Not Reportable 04/01/19 05:01 Not Reportable 04/01/19 05:01 Not Reportable 04/01/19 05:01 Not Reportable 04/01/19 05:01 Not Reportable 04/01/19 05:01 Not Reportable 04/01/19 05:01 Not Reportable 04/01/19 05:01 Not Reportable 04/01/19 05:01 Not Reportable 04/01/19 05:01 Plt Clumps, EDTA Not Reportable 04/01/19 05:01 Not Reportable 04/01/19 05:01 Not Reportable 04/01/19 05:01 Not Reportable 04/01/19 05:01 Plt Morphology Comment Not Reportable 04/01/19 05:01 RBC Morphology Normal 04/01/19 05:01 Dimorphic RBCs Not Reportable 04/01/19 05:01 Not Reportable 04/01/19 05:01 Not Reportable 04/01/19 05:01 Not Reportable 04/01/19 05:01 Not Reportable 04/01/19 05:01 Not Reportable 04/01/19 05:01 Not Reportable 04/01/19 05:01 Not Reportable 04/01/19 05:01 Not Reportable 04/01/19 05:01 Not Reportable 04/01/19 05:01 Not Reportable 04/01/19 05:01 Not Reportable 04/01/19 05:01 Not Reportable 04/01/19 05:01 Not Reportable 04/01/19 05:01 Not Reportable 04/01/19 05:01 Not Reportable 04/01/19 05:01 Not Reportable 04/01/19 05:01 Not Reportable 04/01/19 05:01 Not Reportable 04/01/19 05:01 Not Reportable 04/01/19 05:01 Acanthocytes (Spur) Not Reportable 04/01/19 05:01 Rouleaux Not Reportable 04/01/19 05:01 Not Reportable 04/01/19 05:01 Not Reportable 04/01/19 05:01 Not Reportable 04/01/19 05:01 Not Reportable 04/01/19 05:01 Hem Pathologist Commnt No 04/01/19 05:01 PT 13.9 Sec. (12.2-14.9) 04/01/19 17:14 INR 1.10 (0.87-1.13) 04/01/19 17:14 APTT 74.5 Sec. (24.2-36.6) H* 03/29/19 19:20 313 mg/dl (211-480) 04/01/19 17:14 4526.86 ng/mlDDU (0-234) H 04/06/19 00:06 Heparin Anti-Xa, Unfract Negative (Negative) 03/31/19 15:00 POC ABG pH 7.374 (7.35-7.45) 04/04/19 03:46 ABG pH 7.396 pH Units (7.350-7.450) 04/03/19 05:35 POC ABG pCO2 36.2 (35-45) 04/04/19 03:46 ABG pCO2 32.2 mm Hg 04/03/19 05:35 POC ABG pO2 96 (80-105) 04/04/19 03:46 ABG pO2 97.7 mm Hg (80.0-90.0) H 04/03/19 05:35 POC ABG HCO3 21.2 (22-26 mml/L) 04/04/19 03:46 ABG HCO3 19.3 mmol/L (20.0-26.0) L 04/03/19 05:35 POC ABG Total CO2 22 (23-27mmol/L) 04/04/19 03:46 POC ABG O2 Sat 97 04/04/19 03:46 ABG O2 Saturation 97.6 % (95.0-99.0) 04/03/19 05:35 ABG O2 Content 10.9 (0.0-44) 04/03/19 05:35 POC ABG Base Excess -4 ((-2) - (+3)mmol/L) 04/04/19 03:46 ABG Base Excess -5.0 mmol/L (-2.0-3.0) L 04/03/19 05:35 ABG Hemoglobin 8.0 gm/dl (12.0-16.0) L 04/03/19 05:35 ABG Carboxyhemoglobin 2.1 % (0.0-5.0) 04/03/19 05:35 ABG Methemoglobin 0.5 % (0.0-1.5) 04/03/19 05:35 VBG pH 6.800 (7.320-7.420) L* 03/29/19 19:47 95.1 % (95.0-99.0) 04/03/19 05:35 25 % 04/04/19 03:46 Sodium 138 mmol/L (137-145) 04/14/19 08:20 Potassium 4.3 mmol/L (3.6-5.0) 04/14/19 08:20 Chloride 104.4 mmol/L (98-107) 04/14/19 08:20 Carbon Dioxide 25 mmol/L (22-30) 04/14/19 08:20 13 mmol/L 04/14/19 08:20 BUN 6 mg/dL (7-17) L 04/14/19 08:20 < 0.2 mg/dL (0.7-1.2) L 04/14/19 08:20 Estimated GFR > 60 ml/min 04/14/19 08:20 30 % 04/14/19 08:20 Glucose 154 mg/dL (65-100) H 04/14/19 08:20 POC Glucose 255 (70-105) H 04/15/19 05:44 Lactic Acid 3.30 mmol/L (0.7-2.0) H* 03/31/19 07:50 Calcium 8.7 mg/dL (8.4-10.2) 04/14/19 08:20 Phosphorus 4.10 mg/dL (2.5-4.5) 04/09/19 16:25 Magnesium 1.80 mg/dL (1.7-2.3) 04/09/19 16:25 Iron 26 ug/dL (37-170) L 03/31/19 08:20 TIBC 193 mcg/dL (250-450) L 03/31/19 08:20 0.60 mg/dL (0.1-1.2) 04/03/19 03:40 0.2 mg/dL (0-0.2) 04/02/19 07:48 0.5 mg/dL 04/02/19 07:48 AST 594 units/L (5-40) H 04/03/19 03:40 ALT 861 units/L (7-56) H 04/03/19 03:40 299 units/L (35-129) H 04/03/19 03:40 2465 units/L (30-135) H 03/30/19 05:26 CK-MB (CK-2) 52.7 ng/mL (0.0-4.0) H 03/30/19 05:26 CK-MB (CK-2) Rel Index 2.1 (0-4) 03/30/19 05:26 < 0.010 ng/mL (0.00-0.029) 04/06/19 05:20 2.40 mg/dL (0.00-1.30) H 03/30/19 12:57 4.4 g/dL (6.3-8.2) L 04/03/19 03:40 2.1 g/dL (3.9-5) L 04/03/19 03:40 0.9 % 04/03/19 03:40 See scanned result 03/31/19 15:00 Vitamin B12 > 2000 pg/mL (211-911) H 03/31/19 08:20 > 20 ng/mL (7.3-26.0) 03/31/19 08:20 HCG, Qual Negative (Negative) 03/29/19 19:20 Yellow (Yellow) 03/29/19 23:10 Slightly-cloudy (Clear) 03/29/19 23:10 6.0 (5.0-7.0) 03/29/19 23:10 Ur Specific [place] 1.021 (1.003-1.030) 03/29/19 23:10 100 mg/dl mg/dL (Negative) 03/29/19 23:10 >=500 mg/dL (Negative) 03/29/19 23:10 20 mg/dL (Negative) 03/29/19 23:10 Lg (Negative) 03/29/19 23:10 Neg (Negative) 03/29/19 23:10 Neg (Negative) 03/29/19 23:10 < 2.0 mg/dL (<2.0) 03/29/19 23:10 Ur Leukocyte Esterase Neg (Negative) 03/29/19 23:10 1.0 /HPF (0.0-6.0) 03/29/19 23:10 1.0 /HPF (0.0-6.0) 03/29/19 23:10 Few /HPF 03/29/19 23:10 Salicylates 0.8 mg/dL (2.8-20.0) L 03/30/19 Unknown Presumptive negative 03/29/19 23:10 Presumptive negative 03/29/19 23:10 Acetaminophen < 5.0 ug/mL (10.0-30.0) L 03/30/19 Unknown Ur Barbiturates Screen Presumptive negative 03/29/19 23:10 Ur Phencyclidine Scrn Presumptive negative 03/29/19 23:10 Ur Amphetamines Screen Presumptive negative 03/29/19 23:10 U Benzodiazepines Scrn Presumptive negative 03/29/19 23:10 Presumptive negative 03/29/19 23:10 U Marijuana (THC) Screen Presumptive negative 03/29/19 23:10 Disclamer 03/29/19 23:10 Heparin-induced Plt Ab Negative (Negative) 03/31/19 15:00 UF Heparin High Dose 0 % Release 03/31/19 15:00 FABIAN UFH Low Dose 0.1 0 % Release 03/31/19 15:00 FABIAN UFH Low Dose 0.5 0 % Release 03/31/19 15:00 Hepatitis A IgM Ab Non-reactive (NonReactive) 03/30/19 Unknown Hep Bs Antigen Non-reactive (Negative) 03/30/19 Unknown Hep B Core IgM Ab Non-reactive (NonReactive) 03/30/19 Unknown Non-reactive (NonReactive) 03/30/19 Unknown Flexitest 1 H 03/30/19 14:00 Blood Type O POSITIVE 03/30/19 03:30 Antibody Screen Negative 03/30/19 03:30 Crossmatch See Detail 03/30/19 03:30 Active Medications - Current Medications Current Medications: Generic Name Dose Route Start Last Admin Trade Name Freq PRN Reason Stop Dose Admin Acetaminophen 650 mg 03/29/19 23:34 04/01/19 23:38 Tylenol PO 650 mg Q4H PRN Administration Pain MILD(1-3)/Fever >100.5/WARE Lipase/Protease/Amylase 1 each 04/02/19 11:[address] 10,500 Unit FEEDTUBE PRN PRN For Clogged Feeding Tube Bumetanide 1 mg 04/15/19 09:30 Bumex IV 04/15/19 09:31 ONCE ONE Dextrose 0 ml 03/29/19 20:33 04/13/19 18:27 D50w (25gm) Syringe IV 15 ml PRN PRN Administration Hypoglycemia Enoxaparin Sodium 40 mg 04/14/19 10:00 04/14/19 09:40 Lovenox SUB-Q 40 mg QDAY@1000 ZAMZAM Administration Famotidine 20 mg 04/02/19 10:00 04/14/19 21:54 Pepcid PO 20 mg BID ZAMZAM Administration Fentanyl 50 mcg 04/05/19 11:00 04/14/19 13:17 Sublimaze IV 50 mcg Q2H PRN Administration Pain , Severe (7-10)/AGITATION Fentanyl 25 mcg 04/14/19 14:00 04/14/19 17:23 Duragesic TD 25 mcg Q3D ZAMZAM Administration Hydrophilic Ointment 1 applic 03/30/19 11:24 Vaseline Lip Therapy TP Q2HR PRN Dry Lips Norepinephrine 4 mg in 250 mls @ 7.5 mls/hr 03/29/19 21:00 04/01/19 19:00 Levophed Drip 4 Mg/Ns 250 Ml IV 0 mcg/min TITR ZAMZAM 0 mls/hr Titration Protocol 2 MCG/MIN Insulin Glargine 20 units 04/09/19 22:00 04/14/19 21:55 Lantus SUB-Q 20 units QHS ZAMZAM Administration Insulin Human Regular 0 units 04/09/19 12:00 04/15/19 05:46 Humulin R SUB-Q 4 units Q6HR ZAMZAM Administration Protocol Levetiracetam 500 mg 04/03/19 10:00 04/14/19 21:54 Keppra PO 500 mg BID ZAMZAM Administration Metoprolol Tartrate 12.5 mg 04/14/19 22:00 04/14/19 21:54 Lopressor PO 12.5 mg BID ZAMZAM Administration Metoprolol Tartrate 5 mg 04/14/19 13:06 Lopressor IV Q6HR PRN Tachyarrhythmias Multi-Ingred Cream/Lotion/Oil/Oint 1 applic 03/30/19 11:24 04/06/19 11:39 Artificial Tears Ophth Oint OU 1 applic Q4HR PRN Administration Dry Eye(s) Ondansetron HCl 4 mg 03/29/19 23:34 Zofran IV Q8H PRN Nausea And Vomiting Simple Syrup 15 ml 04/02/19 11:44 04/14/19 01:53 Simple Syrup FEEDTUBE 15 ml PRN PRN Administration Hypoglycemia Simple Syrup 30 ml 04/02/19 11:44 Simple Syrup FEEDTUBE PRN PRN Hypoglycemia Sodium Bicarbonate 325 mg 04/02/19 11:44 Sodium Bicarbonate FEEDTUBE PRN PRN For Clogged Feeding Tube Sodium Chloride 10 ml 03/30/19 10:00 04/14/19 21:55 Sodium Chloride Flush Syringe 10 Ml IV 10 ml BID ZAMZAM Administration Sodium Chloride 10 ml 03/29/19 23:34 Sodium Chloride Flush Syringe 10 Ml IV PRN PRN LINE FLUSH Nutrition/Malnutrition Assess - Dietary Evaluation Nutrition/Malnutrition Findings: Nutrition Notes Start: 03/30/19 13:14 Freq: Status: Active Protocol: Document 04/11/19 10:44 LM (Rec: 04/11/19 10:54 LM [email or web address]) Nutrition Notes Initial or Follow up Reassessment Current Diagnosis Diabetes,Sepsis,Respiratory Failure Other Pertinent Diagnosis s/p cardiac arrest, DKA, ARF, Shock liver Current Diet Glucerna 1.2 at 50 ml/hr Labs/Tests POC glu 109 Pertinent Medications Reviewed Height 5 ft Weight 42.8 kg [place] Body Weight (kg) 45.45 BMI 18.4 Weight change and time frame Wt change noted Subjective/Other Information Glucerna running at 50 ml/hr. Pt is tolerateing TF. Per MD pt will be getting trach and PEG. Pt remains on vent. Burn Absent Trauma Absent #1 Nutrition Diagnosis Inadequate oral intake Diagnosis Progress(for reassessment Continues documentation) Is patient on ventilator? Yes Is Patient Ambulatory and/or Out of Bed No REE-([facility]-confined to bed) 1279.860 Kcal/Kg value to use for calculation 40 Approximate Energy Requirements Using 1712 kcal/Kg Additional Notes Protein: 1.2-2g/k-86g/day Fluids: 1ml/kcal Nutrition Intervention Change Diet Order: Continue TF Nutrition Support: Glucerna 1.2 at 50ml/hr with 80ml water flush q4h. Kcal 1,440 Protein (gm) 72 Fluid (mL) 966 Goal #1 Meet at least 75% of energy and protein needs Follow-Up By: 04/18/19 Additional Comments F/U for TF tolerance/rate
[2019-04-15] MEDS: KEPPRA PO SCH ×2 (10:12→22:08)
[2019-04-15] MEDS: PEPCID PO SCH ×2 (10:12→22:08)
[2019-04-15] MEDS: ENOXAPARIN SUB-Q SCH (10:13)
[2019-04-15] MEDS: SODIUM CHLORIDE FLUSH SYRINGE 10 ML IV SCH ×2 (10:13→22:11)
[2019-04-15] MEDS: METOPROLOL PO SCH ×2 (10:16→22:08)
--- NOTE | 2019-04-15 12:35 | Progress Note ---
Assessment and Plan Acute toxic metabolic encephalopathy. Diabetic ketoacidosis. Severe sepsis with shock. Possible aspiration pneumonia. History of polysubstance abuse. Leukocytosis. Elevated serum transaminases, possible shock liver. Hyponatremia related to her severe hyperglycemia. Anemia that is macrocytic. History of seizure disorder. Severe metabolic acidosis. Acute kidney injury, possibly on chronic - continue daily SAT and SBT assessments as tolerated (repeat SBT later today) - increase metoprolol to 25 mg po bid scheduled - metoprolol 5mg IV q6h prn pulse > 130/min - continue fentanyl 25 mics/hr patch re: chronic back pain - continue set rate at 12/min while resting - continue contact isolation - continue to follow mental status closely - follow clinically off AB's at this point - continue enteral nutrition with glucerna and adjust rate per client services specialist - continue bronchodilators with pulmonary hygiene per RT - VAP bundle addressed - continue to wean supplemental O2 to keep O2 sats > 90% - VTE prophylaxis with lovenox - Stress ulcer prophylaxis - continue accuchecks with glycemic control per SSI for target blood glucose 140-180 mg/dL - continue empiric antibiotics; de-escalate per ID rec's and based on clinical and microbiologic data - sedation target of RASS 0 to -1 - continue Keppra for seizures - continue mobility protocols / off loading for pressure ulcer prevention - Critical care bundles addressed - continue Seizure precautions - fall precautions - neuro-checks per RN - continue other care per attending / other consultants CONDITION: CRITICAL PROGNOSIS: GUARDED TO GRAVE CODE STATUS: FULL CODE The high probability of a clinically significant, sudden or life threatening det erioration of the [Neurology Respiratory, Cardiovascular] system(s) required my full and direct attention, intervention and personal management. The aggregate critical care time was [34] minutes. This time is in addition to time spent performing reported procedures but includes the following: [x] Data Review and interpretation [x] Patient assessment and monitoring of vital signs [x] Documentation [x] Medication orders and management Subjective Date of service: 04/15/19 Principal diagnosis: Ac Hypoxemic Resp Failure; DKA; Severe sepsis with shock; ANGELICA Interval history: Patient is seen today for: Acute Hypoxemic Resp Failure; Ac toxic metabolic encephalopathy; DKA; Severe sepsis with shock; Possible aspiration pneumonia; History of polysubstance abuse; History of seizure disorder; Acute kidney injury, possibly on chronic Seen and examined at bedside; 24hour events reviewed; nursing and respiratory care staff consulted; no adverse overnight events reported to me; resting peacefully in bed; AMS is persistent; failed SBT today; No N/V/F/C; tolerating tube feeds; trach functioning very well Objective Vital Signs - 12hr 04/15/19 04/15/19 04/15/19 01:00 02:00 03:00 Temperature Pulse Rate 115 H 115 H 114 H Pulse Rate [ 115 H Right Radial] Respiratory 13 21 24 Rate Blood Pressure 118/78 130/84 126/106 O2 Sat by Pulse 100 100 100 Oximetry O2 Sat by Pulse Oximetry [ Assessment] 04/15/19 04/15/19 04/15/19 03:55 04:00 04:27 Temperature 98.3 F Pulse Rate 118 H 116 H Pulse Rate [ 116 H Right Radial] Respiratory 21 Rate Blood Pressure 117/73 120/77 O2 Sat by Pulse 99 99 Oximetry O2 Sat by Pulse Oximetry [ Assessment] 04/15/19 04/15/19 04/15/19 04:41 05:00 06:00 Temperature Pulse Rate 105 H 108 H Pulse Rate [ 136 H Right Radial] Respiratory 15 13 Rate Blood Pressure 121/70 123/73 O2 Sat by Pulse 100 100 Oximetry O2 Sat by Pulse 100 Oximetry [ Assessment] 04/15/19 04/15/19 04/15/19 07:00 07:59 08:00 Temperature 98.4 F Pulse Rate 110 H 110 H Pulse Rate [ Right Radial] Respiratory 15 13 Rate Blood Pressure 124/70 117/71 O2 Sat by Pulse 100 100 Oximetry O2 Sat by Pulse Oximetry [ Assessment] 04/15/19 04/15/19 04/15/19 09:00 09:18 10:00 Temperature Pulse Rate 111 H 110 H 115 H Pulse Rate [ Right Radial] Respiratory 13 14 Rate Blood Pressure 124/78 121/78 O2 Sat by Pulse 100 100 100 Oximetry O2 Sat by Pulse Oximetry [ Assessment] 04/15/19 10:16 Temperature Pulse Rate 114 H Pulse Rate [ Right Radial] Respiratory Rate Blood Pressure 119/78 O2 Sat by Pulse Oximetry O2 Sat by Pulse Oximetry [ Assessment] Constitutional: no acute distress, other (young CF normocephalic and atraumatic on MVS) Eyes: non-icteric ENT: oropharynx moist, other (s/p tracheostomy) Neck: supple, no lymphadenopathy, no JVD Effort: mildly labored Ascultation: Bilateral: rhonchi (scant) Percussion: Bilateral: not dull Cardiovascular: regular rate and rhythm, other (sinus tachycardia) Gastrointestinal: hypoactive bowel sounds, soft, non-tender, non-distended Integumentary: erythema (noted on upper extremity) Extremities: no cyanosis, pink and warm, pulses normal, no ischemia or petechiae, edema (trace to 1+) Neurologic: unable to assess (remains unresponsive, opens eyes on suctioning, not obeying commands) Psychiatric: other (unable to assess) CBC and BMP: 04/14/19 08:20 04/14/19 08:20 ABG, PT/INR, D-dimer: ABG POC ABG pH 7.374 (7.35-7.45) 04/04/19 03:46 ABG pH 7.396 pH Units (7.350-7.450) 04/03/19 05:35 POC ABG pCO2 36.2 (35-45) 04/04/19 03:46 ABG pCO2 32.2 mm Hg 04/03/19 05:35 POC ABG pO2 96 (80-105) 04/04/19 03:46 ABG pO2 97.7 mm Hg (80.0-90.0) H 04/03/19 05:35 POC ABG HCO3 21.2 (22-26 mml/L) 04/04/19 03:46 POC ABG Total CO2 22 (23-27mmol/L) 04/04/19 03:46 POC ABG O2 Sat 97 04/04/19 03:46 ABG O2 Saturation 97.6 % (95.0-99.0) 04/03/19 05:35 PT/INR, D-dimer PT 13.9 Sec. (12.2-14.9) 04/01/19 17:14 INR 1.10 (0.87-1.13) 04/01/19 17:14 4526.86 ng/mlDDU (0-234) H 04/06/19 00:06 Abnormal lab findings: Abnormal Labs 03/29/19 03/29/19 03/29/19 19:11 19:20 19:20 WBC 26.7 H RBC 2.52 L Hgb 8.1 L Hct MCV 148 H MCH MCHC 22 L RDW 18.5 H Plt Count [place] % (Auto) Lymph # Seg Neuts % (Manual) 82.0 H Lymphocytes % (Manual) 7.0 L Nucleated RBC % Seg Neutrophils # Man 21.9 H Lymphocytes # (Manual) Monocytes # (Manual) 1.9 H PT 21.8 H INR 1.95 H APTT 74.5 H* D-Dimer POC ABG pH ABG pH POC ABG pO2 ABG pO2 ABG HCO3 ABG O2 Saturation ABG Base Excess ABG Hemoglobin VBG pH Oxyhemoglobin Sodium Potassium Chloride Carbon Dioxide BUN Creatinine Glucose POC Glucose > 500 H Lactic Acid Calcium Phosphorus Magnesium Iron TIBC Direct Bilirubin AST ALT Alkaline Phosphatase Total Creatine Kinase CK-MB (CK-2) C-Reactive Protein Total Protein Albumin Vitamin B12 Salicylates Acetaminophen Miscellaneous Test Crossmatch 03/29/19 03/29/19 03/29/19 19:20 19:47 20:59 WBC RBC Hgb Hct MCV MCH MCHC RDW Plt Count [place] % (Auto) Lymph # Seg Neuts % (Manual) Lymphocytes % (Manual) Nucleated RBC % Seg Neutrophils # Man Lymphocytes # (Manual) Monocytes # (Manual) PT INR APTT D-Dimer POC ABG pH 6.892 L ABG pH POC ABG pO2 236 H ABG pO2 ABG HCO3 ABG O2 Saturation ABG Base Excess ABG Hemoglobin VBG pH 6.800 L* Oxyhemoglobin Sodium 118 L* Potassium 9.0 H* Chloride 64.5 L Carbon Dioxide 7 L* BUN 53 H Creatinine 2.1 H Glucose 2196 H* POC Glucose Lactic Acid Calcium 12.4 H* Phosphorus Magnesium Iron TIBC Direct Bilirubin AST 3900 H ALT 1034 H Alkaline Phosphatase 316 H Total Creatine Kinase CK-MB (CK-2) C-Reactive Protein Total Protein 5.1 L Albumin 2.8 L Vitamin B12 Salicylates Acetaminophen Miscellaneous Test Crossmatch 03/29/19 03/29/19 03/29/19 22:45 22:45 22:45 WBC RBC Hgb Hct MCV MCH MCHC RDW Plt Count [place] % (Auto) Lymph # Seg Neuts % (Manual) Lymphocytes % (Manual) Nucleated RBC % Seg Neutrophils # Man Lymphocytes # (Manual) Monocytes # (Manual) PT INR APTT D-Dimer POC ABG pH ABG pH POC ABG pO2 ABG pO2 ABG HCO3 ABG O2 Saturation ABG Base Excess ABG Hemoglobin VBG pH Oxyhemoglobin Sodium 132 L D Potassium 7.0 H* Chloride 84.3 L Carbon Dioxide 3 L* BUN 48 H Creatinine 1.8 H Glucose 1779 H* POC Glucose Lactic Acid Calcium Phosphorus 21.70 H Magnesium 4.70 H Iron TIBC Direct Bilirubin AST ALT Alkaline Phosphatase Total Creatine Kinase 363 H CK-MB (CK-2) C-Reactive Protein Total Protein Albumin Vitamin B12 Salicylates Acetaminophen Miscellaneous Test Crossmatch 03/29/19 03/29/19 03/30/19 Unknown Unknown 00:11 WBC RBC Hgb Hct MCV MCH MCHC RDW Plt Count [place] % (Auto) Lymph # Seg Neuts % (Manual) Lymphocytes % (Manual) Nucleated RBC % Seg Neutrophils # Man Lymphocytes # (Manual) Monocytes # (Manual) PT INR APTT D-Dimer POC ABG pH ABG pH POC ABG pO2 ABG pO2 ABG HCO3 ABG O2 Saturation ABG Base Excess ABG Hemoglobin VBG pH Oxyhemoglobin Sodium 122 L Potassium 7.9 H* 6.4 H* Chloride 75.3 L 89.7 L Carbon Dioxide 3 L* 12 L D BUN 52 H 46 H Creatinine 2.0 H 1.7 H Glucose 2043 H* 1591 H* POC Glucose Lactic Acid Calcium 7.8 L Phosphorus 19.30 H Magnesium 3.90 H Iron TIBC Direct Bilirubin AST ALT Alkaline Phosphatase Total Creatine Kinase CK-MB (CK-2) C-Reactive Protein Total Protein Albumin Vitamin B12 Salicylates Acetaminophen Miscellaneous Test Crossmatch 03/30/19 03/30/19 03/30/19 00:11 02:14 02:14 WBC RBC Hgb Hct MCV MCH MCHC RDW Plt Count [place] % (Auto) Lymph # Seg Neuts % (Manual) Lymphocytes % (Manual) Nucleated RBC % Seg Neutrophils # Man Lymphocytes # (Manual) Monocytes # (Manual) PT INR APTT D-Dimer POC ABG pH ABG pH POC ABG pO2 ABG pO2 ABG HCO3 ABG O2 Saturation ABG Base Excess ABG Hemoglobin VBG pH Oxyhemoglobin Sodium Potassium Chloride Carbon Dioxide 9 L* BUN 45 H Creatinine 1.7 H Glucose 1155 H* POC Glucose Lactic Acid Calcium 7.9 L Phosphorus 10.90 H D 5.30 H D Magnesium 3.10 H 2.90 H Iron TIBC Direct Bilirubin AST ALT Alkaline Phosphatase Total Creatine Kinase CK-MB (CK-2) C-Reactive Protein Total Protein Albumin Vitamin B12 Salicylates Acetaminophen Miscellaneous Test Crossmatch 03/30/19 03/30/19 03/30/19 03:15 03:30 04:23 WBC 18.0 H RBC 2.31 L Hgb 7.3 L Hct 23.8 L D MCV 103 H MCH MCHC RDW 17.1 H Plt Count [place] % (Auto) Lymph # Seg Neuts % (Manual) 79.0 H Lymphocytes % (Manual) Nucleated RBC % Seg Neutrophils # Man 14.2 H Lymphocytes # (Manual) Monocytes # (Manual) PT INR APTT D-Dimer POC ABG pH 7.251 L ABG pH POC ABG pO2 156 H ABG pO2 ABG HCO3 ABG O2 Saturation ABG Base Excess ABG Hemoglobin VBG pH Oxyhemoglobin Sodium Potassium Chloride Carbon Dioxide BUN Creatinine Glucose POC Glucose Lactic Acid Calcium Phosphorus Magnesium Iron TIBC Direct Bilirubin AST ALT Alkaline Phosphatase Total Creatine Kinase CK-MB (CK-2) C-Reactive Protein Total Protein Albumin Vitamin B12 Salicylates Acetaminophen Miscellaneous Test Crossmatch See Detail 03/30/19 03/30/19 03/30/19 05:26 05:26 10:38 WBC RBC Hgb Hct MCV MCH MCHC RDW Plt Count [place] % (Auto) Lymph # Seg Neuts % (Manual) Lymphocytes % (Manual) Nucleated RBC % Seg Neutrophils # Man Lymphocytes # (Manual) Monocytes # (Manual) PT INR APTT D-Dimer POC ABG pH ABG pH POC ABG pO2 ABG pO2 ABG HCO3 ABG O2 Saturation ABG Base Excess ABG Hemoglobin VBG pH Oxyhemoglobin Sodium 158 H D Potassium 3.5 L Chloride 109.3 H Carbon Dioxide 19 L D BUN 40 H Creatinine 1.5 H Glucose 760 H* POC Glucose 380 H Lactic Acid Calcium 7.3 L Phosphorus Magnesium 2.60 H Iron TIBC Direct Bilirubin AST 69175 H ALT 2156 H Alkaline Phosphatase 271 H Total Creatine Kinase 2465 H CK-MB (CK-2) 52.7 H C-Reactive Protein Total Protein 4.5 L Albumin 2.4 L Vitamin B12 Salicylates Acetaminophen Miscellaneous Test Crossmatch 03/30/19 03/30/19 03/30/19 11:08 12:25 12:57 WBC RBC Hgb Hct MCV MCH MCHC RDW Plt Count [place] % (Auto) Lymph # Seg Neuts % (Manual) Lymphocytes % (Manual) Nucleated RBC % Seg Neutrophils # Man Lymphocytes # (Manual) Monocytes # (Manual) PT INR APTT D-Dimer POC ABG pH ABG pH POC ABG pO2 ABG pO2 ABG HCO3 ABG O2 Saturation ABG Base Excess ABG Hemoglobin VBG pH Oxyhemoglobin Sodium 156 H Potassium 3.2 L Chloride 116.4 H Carbon Dioxide 21 L BUN 37 H Creatinine Glucose 162 H POC Glucose 263 H 196 H Lactic Acid Calcium 7.2 L Phosphorus Magnesium Iron TIBC Direct Bilirubin AST ALT Alkaline Phosphatase Total Creatine Kinase CK-MB (CK-2) C-Reactive Protein Total Protein Albumin Vitamin B12 Salicylates Acetaminophen Miscellaneous Test Crossmatch 03/30/19 03/30/19 03/30/19 12:57 12:57 12:57 WBC RBC Hgb Hct MCV MCH MCHC RDW Plt Count [place] % (Auto) Lymph # Seg Neuts % (Manual) Lymphocytes % (Manual) Nucleated RBC % Seg Neutrophils # Man Lymphocytes # (Manual) Monocytes # (Manual) PT 21.0 H INR 1.86 H APTT D-Dimer POC ABG pH ABG pH POC ABG pO2 ABG pO2 ABG HCO3 ABG O2 Saturation ABG Base Excess ABG Hemoglobin VBG pH Oxyhemoglobin Sodium Potassium Chloride Carbon Dioxide BUN Creatinine Glucose POC Glucose Lactic Acid 9.00 H* Calcium Phosphorus Magnesium Iron TIBC Direct Bilirubin AST ALT Alkaline Phosphatase Total Creatine Kinase CK-MB (CK-2) C-Reactive Protein 2.40 H Total Protein Albumin Vitamin B12 Salicylates Acetaminophen Miscellaneous Test Crossmatch 03/30/19 03/30/19 03/30/19 13:23 14:00 14:47 WBC RBC Hgb Hct MCV MCH MCHC RDW Plt Count [place] % (Auto) Lymph # Seg Neuts % (Manual) Lymphocytes % (Manual) Nucleated RBC % Seg Neutrophils # Man Lymphocytes # (Manual) Monocytes # (Manual) PT INR APTT D-Dimer POC ABG pH ABG pH POC ABG pO2 ABG pO2 ABG HCO3 ABG O2 Saturation ABG Base Excess ABG Hemoglobin VBG pH Oxyhemoglobin Sodium Potassium Chloride Carbon Dioxide BUN Creatinine Glucose POC Glucose 176 H 245 H Lactic Acid Calcium Phosphorus Magnesium Iron TIBC Direct Bilirubin AST ALT Alkaline Phosphatase Total Creatine Kinase CK-MB (CK-2) C-Reactive Protein Total Protein Albumin Vitamin B12 Salicylates Acetaminophen Miscellaneous Test Flexitest 1 H Crossmatch 03/30/19 03/30/19 03/30/19 16:11 17:11 17:46 WBC RBC Hgb Hct MCV MCH MCHC RDW Plt Count [place] % (Auto) Lymph # Seg Neuts % (Manual) Lymphocytes % (Manual) Nucleated RBC % Seg Neutrophils # Man Lymphocytes # (Manual) Monocytes # (Manual) PT INR APTT D-Dimer POC ABG pH ABG pH POC ABG pO2 ABG pO2 ABG HCO3 ABG O2 Saturation ABG Base Excess ABG Hemoglobin VBG pH Oxyhemoglobin Sodium Potassium Chloride Carbon Dioxide BUN Creatinine Glucose POC Glucose 181 H 167 H 125 H Lactic Acid Calcium Phosphorus Magnesium Iron TIBC Direct Bilirubin AST ALT Alkaline Phosphatase Total Creatine Kinase CK-MB (CK-2) C-Reactive Protein Total Protein Albumin Vitamin B12 Salicylates Acetaminophen Miscellaneous Test Crossmatch 03/30/19 03/30/19 03/30/19 18:59 21:31 22:19 WBC RBC Hgb Hct MCV MCH MCHC RDW Plt Count [place] % (Auto) Lymph # Seg Neuts % (Manual) Lymphocytes % (Manual) Nucleated RBC % Seg Neutrophils # Man Lymphocytes # (Manual) Monocytes # (Manual) PT INR APTT D-Dimer POC ABG pH ABG pH POC ABG pO2 ABG pO2 ABG HCO3 ABG O2 Saturation ABG Base Excess ABG Hemoglobin VBG pH Oxyhemoglobin Sodium Potassium Chloride Carbon Dioxide BUN Creatinine Glucose POC Glucose 140 H 166 H 115 H Lactic Acid Calcium Phosphorus Magnesium Iron TIBC Direct Bilirubin AST ALT Alkaline Phosphatase Total Creatine Kinase CK-MB (CK-2) C-Reactive Protein Total Protein Albumin Vitamin B12 Salicylates Acetaminophen Miscellaneous Test Crossmatch 03/30/19 03/30/19 03/30/19 23:13 Unknown Unknown WBC RBC Hgb Hct MCV MCH MCHC RDW Plt Count [place] % (Auto) Lymph # Seg Neuts % (Manual) Lymphocytes % (Manual) Nucleated RBC % Seg Neutrophils # Man Lymphocytes # (Manual) Monocytes # (Manual) PT INR APTT D-Dimer POC ABG pH ABG pH POC ABG pO2 ABG pO2 47.8 L ABG HCO3 18.8 L ABG O2 Saturation 83.8 L ABG Base Excess -5.4 L ABG Hemoglobin 6.8 L VBG pH Oxyhemoglobin 81.8 L Sodium 157 H Potassium 3.3 L Chloride 117.9 H Carbon Dioxide 20 L BUN 36 H Creatinine Glucose 150 H POC Glucose 112 H Lactic Acid Calcium 7.2 L Phosphorus Magnesium Iron TIBC Direct Bilirubin AST ALT Alkaline Phosphatase Total Creatine Kinase CK-MB (CK-2) C-Reactive Protein Total Protein Albumin Vitamin B12 Salicylates Acetaminophen Miscellaneous Test Crossmatch 03/30/19 03/30/19 03/31/19 Unknown Unknown 00:03 WBC RBC Hgb Hct MCV MCH MCHC RDW Plt Count [place] % (Auto) Lymph # Seg Neuts % (Manual) Lymphocytes % (Manual) Nucleated RBC % Seg Neutrophils # Man Lymphocytes # (Manual) Monocytes # (Manual) PT INR APTT D-Dimer POC ABG pH ABG pH POC ABG pO2 ABG pO2 ABG HCO3 ABG O2 Saturation ABG Base Excess ABG Hemoglobin VBG pH Oxyhemoglobin Sodium Potassium Chloride Carbon Dioxide BUN Creatinine Glucose POC Glucose 188 H Lactic Acid Calcium Phosphorus Magnesium Iron TIBC Direct Bilirubin AST ALT Alkaline Phosphatase Total Creatine Kinase CK-MB (CK-2) C-Reactive Protein Total Protein Albumin Vitamin B12 Salicylates 0.8 L Acetaminophen < 5.0 L Miscellaneous Test Crossmatch 03/31/19 03/31/19 03/31/19 01:18 03:07 03:50 WBC RBC Hgb Hct MCV MCH MCHC RDW Plt Count [place] % (Auto) Lymph # Seg Neuts % (Manual) Lymphocytes % (Manual) Nucleated RBC % Seg Neutrophils # Man Lymphocytes # (Manual) Monocytes # (Manual) PT INR APTT D-Dimer POC ABG pH ABG pH 7.525 H POC ABG pO2 ABG pO2 178.0 H ABG HCO3 19.5 L ABG O2 Saturation 99.2 H ABG Base Excess -3.1 L ABG Hemoglobin 5.8 L VBG pH Oxyhemoglobin Sodium Potassium Chloride Carbon Dioxide BUN Creatinine Glucose POC Glucose 114 H 107 H Lactic Acid Calcium Phosphorus Magnesium Iron TIBC Direct Bilirubin AST ALT Alkaline Phosphatase Total Creatine Kinase CK-MB (CK-2) C-Reactive Protein Total Protein Albumin Vitamin B12 Salicylates Acetaminophen Miscellaneous Test Crossmatch 03/31/19 03/31/19 03/31/19 03:51 03:51 04:05 WBC RBC 1.89 L Hgb 6.1 L Hct 18.2 L* MCV MCH MCHC RDW 17.7 H Plt Count 89 L [place] % (Auto) Lymph # Seg Neuts % (Manual) 86.0 H Lymphocytes % (Manual) 10.0 L Nucleated RBC % 1.0 H Seg Neutrophils # Man Lymphocytes # (Manual) 0.7 L Monocytes # (Manual) PT INR APTT D-Dimer POC ABG pH ABG pH POC ABG pO2 ABG pO2 ABG HCO3 ABG O2 Saturation ABG Base Excess ABG Hemoglobin VBG pH Oxyhemoglobin Sodium 151 H Potassium 3.2 L Chloride 119.4 H Carbon Dioxide 17 L BUN 35 H Creatinine Glucose 139 H POC Glucose 153 H Lactic Acid Calcium 7.1 L Phosphorus Magnesium Iron TIBC Direct Bilirubin AST ALT Alkaline Phosphatase Total Creatine Kinase CK-MB (CK-2) C-Reactive Protein Total Protein Albumin Vitamin B12 Salicylates Acetaminophen Miscellaneous Test Crossmatch 03/31/19 03/31/19 03/31/19 05:05 05:35 06:23 WBC RBC Hgb Hct MCV MCH MCHC RDW Plt Count [place] % (Auto) Lymph # Seg Neuts % (Manual) Lymphocytes % (Manual) Nucleated RBC % Seg Neutrophils # Man Lymphocytes # (Manual) Monocytes # (Manual) PT INR APTT D-Dimer POC ABG pH ABG pH POC ABG pO2 ABG pO2 ABG HCO3 ABG O2 Saturation ABG Base Excess ABG Hemoglobin VBG pH Oxyhemoglobin Sodium Potassium Chloride Carbon Dioxide BUN Creatinine Glucose POC Glucose 176 H 133 H Lactic Acid 3.20 H* Calcium Phosphorus Magnesium Iron TIBC Direct Bilirubin AST ALT Alkaline Phosphatase Total Creatine Kinase CK-MB (CK-2) C-Reactive Protein Total Protein Albumin Vitamin B12 Salicylates Acetaminophen Miscellaneous Test Crossmatch 03/31/19 03/31/19 03/31/19 07:50 07:51 08:20 WBC RBC Hgb Hct MCV MCH MCHC RDW Plt Count [place] % (Auto) Lymph # Seg Neuts % (Manual) Lymphocytes % (Manual) Nucleated RBC % Seg Neutrophils # Man Lymphocytes # (Manual) Monocytes # (Manual) PT INR APTT D-Dimer POC ABG pH ABG pH POC ABG pO2 ABG pO2 ABG HCO3 ABG O2 Saturation ABG Base Excess ABG Hemoglobin VBG pH Oxyhemoglobin Sodium Potassium Chloride Carbon Dioxide BUN Creatinine Glucose POC Glucose 135 H Lactic Acid 3.30 H* Calcium Phosphorus Magnesium Iron 26 L TIBC 193 L Direct Bilirubin AST ALT Alkaline Phosphatase Total Creatine Kinase CK-MB (CK-2) C-Reactive Protein Total Protein Albumin Vitamin B12 Salicylates Acetaminophen Miscellaneous Test Crossmatch 03/31/19 03/31/19 03/31/19 08:20 08:20 09:06 WBC RBC Hgb Hct MCV MCH MCHC RDW Plt Count [place] % (Auto) Lymph # Seg Neuts % (Manual) Lymphocytes % (Manual) Nucleated RBC % Seg Neutrophils # Man Lymphocytes # (Manual) Monocytes # (Manual) PT INR APTT D-Dimer POC ABG pH ABG pH POC ABG pO2 ABG pO2 ABG HCO3 ABG O2 Saturation ABG Base Excess ABG Hemoglobin VBG pH Oxyhemoglobin Sodium 153 H Potassium 3.0 L Chloride 118.9 H Carbon Dioxide 18 L BUN 37 H Creatinine Glucose 132 H POC Glucose 145 H Lactic Acid Calcium 7.1 L Phosphorus Magnesium Iron TIBC Direct Bilirubin AST ALT Alkaline Phosphatase Total Creatine Kinase CK-MB (CK-2) C-Reactive Protein Total Protein Albumin Vitamin B12 > 2000 H Salicylates Acetaminophen Miscellaneous Test Crossmatch 03/31/19 03/31/19 03/31/19 10:47 11:49 13:04 WBC RBC Hgb Hct MCV MCH MCHC RDW Plt Count [place] % (Auto) Lymph # Seg Neuts % (Manual) Lymphocytes % (Manual) Nucleated RBC % Seg Neutrophils # Man Lymphocytes # (Manual) Monocytes # (Manual) PT INR APTT D-Dimer POC ABG pH ABG pH POC ABG pO2 ABG pO2 ABG HCO3 ABG O2 Saturation ABG Base Excess ABG Hemoglobin VBG pH Oxyhemoglobin Sodium Potassium Chloride Carbon Dioxide BUN Creatinine Glucose POC Glucose 153 H 174 H 214 H Lactic Acid Calcium Phosphorus Magnesium Iron TIBC Direct Bilirubin AST ALT Alkaline Phosphatase Total Creatine Kinase CK-MB (CK-2) C-Reactive Protein Total Protein Albumin Vitamin B12 Salicylates Acetaminophen Miscellaneous Test Crossmatch 03/31/19 03/31/19 03/31/19 13:42 15:08 16:08 WBC RBC Hgb Hct MCV MCH MCHC RDW Plt Count [place] % (Auto) Lymph # Seg Neuts % (Manual) Lymphocytes % (Manual) Nucleated RBC % Seg Neutrophils # Man Lymphocytes # (Manual) Monocytes # (Manual) PT INR APTT D-Dimer POC ABG pH ABG pH POC ABG pO2 ABG pO2 ABG HCO3 ABG O2 Saturation ABG Base Excess ABG Hemoglobin VBG pH Oxyhemoglobin Sodium Potassium Chloride Carbon Dioxide BUN Creatinine Glucose POC Glucose 186 H 136 H 150 H Lactic Acid Calcium Phosphorus Magnesium Iron TIBC Direct Bilirubin AST ALT Alkaline Phosphatase Total Creatine Kinase CK-MB (CK-2) C-Reactive Protein Total Protein Albumin Vitamin B12 Salicylates Acetaminophen Miscellaneous Test Crossmatch 03/31/19 03/31/19 03/31/19 17:11 17:30 17:30 WBC RBC Hgb 7.7 L Hct 23.0 L MCV MCH MCHC RDW Plt Count [place] % (Auto) Lymph # Seg Neuts % (Manual) Lymphocytes % (Manual) Nucleated RBC % Seg Neutrophils # Man Lymphocytes # (Manual) Monocytes # (Manual) PT INR APTT D-Dimer POC ABG pH ABG pH POC ABG pO2 ABG pO2 ABG HCO3 ABG O2 Saturation ABG Base Excess ABG Hemoglobin VBG pH Oxyhemoglobin Sodium 153 H Potassium 3.5 L Chloride 119.3 H Carbon Dioxide 20 L BUN 34 H Creatinine Glucose 162 H POC Glucose 140 H Lactic Acid Calcium 7.6 L Phosphorus Magnesium Iron TIBC Direct Bilirubin AST ALT Alkaline Phosphatase Total Creatine Kinase CK-MB (CK-2) C-Reactive Protein Total Protein Albumin Vitamin B12 Salicylates Acetaminophen Miscellaneous Test Crossmatch 03/31/19 03/31/19 03/31/19 17:59 18:58 20:28 WBC RBC Hgb Hct MCV MCH MCHC RDW Plt Count [place] % (Auto) Lymph # Seg Neuts % (Manual) Lymphocytes % (Manual) Nucleated RBC % Seg Neutrophils # Man Lymphocytes # (Manual) Monocytes # (Manual) PT INR APTT D-Dimer POC ABG pH ABG pH POC ABG pO2 ABG pO2 ABG HCO3 ABG O2 Saturation ABG Base Excess ABG Hemoglobin VBG pH Oxyhemoglobin Sodium Potassium Chloride Carbon Dioxide BUN Creatinine Glucose POC Glucose 156 H 152 H 138 H Lactic Acid Calcium Phosphorus Magnesium Iron TIBC Direct Bilirubin AST ALT Alkaline Phosphatase Total Creatine Kinase CK-MB (CK-2) C-Reactive Protein Total Protein Albumin Vitamin B12 Salicylates Acetaminophen Miscellaneous Test Crossmatch 03/31/19 03/31/19 03/31/19 21:09 22:15 23:10 WBC RBC Hgb Hct MCV MCH MCHC RDW Plt Count [place] % (Auto) Lymph # Seg Neuts % (Manual) Lymphocytes % (Manual) Nucleated RBC % Seg Neutrophils # Man Lymphocytes # (Manual) Monocytes # (Manual) PT INR APTT D-Dimer POC ABG pH ABG pH POC ABG pO2 ABG pO2 ABG HCO3 ABG O2 Saturation ABG Base Excess ABG Hemoglobin VBG pH Oxyhemoglobin Sodium Potassium Chloride Carbon Dioxide BUN Creatinine Glucose POC Glucose 136 H 137 H 148 H Lactic Acid Calcium Phosphorus Magnesium Iron TIBC Direct Bilirubin AST ALT Alkaline Phosphatase Total Creatine Kinase CK-MB (CK-2) C-Reactive Protein Total Protein Albumin Vitamin B12 Salicylates Acetaminophen Miscellaneous Test Crossmatch 04/01/19 04/01/19 04/01/19 00:05 01:17 02:11 WBC RBC Hgb Hct MCV MCH MCHC RDW Plt Count [place] % (Auto) Lymph # Seg Neuts % (Manual) Lymphocytes % (Manual) Nucleated RBC % Seg Neutrophils # Man Lymphocytes # (Manual) Monocytes # (Manual) PT INR APTT D-Dimer POC ABG pH ABG pH POC ABG pO2 ABG pO2 ABG HCO3 ABG O2 Saturation ABG Base Excess ABG Hemoglobin VBG pH Oxyhemoglobin Sodium Potassium Chloride Carbon Dioxide BUN Creatinine Glucose POC Glucose 143 H 151 H 155 H Lactic Acid Calcium Phosphorus Magnesium Iron TIBC Direct Bilirubin AST ALT Alkaline Phosphatase Total Creatine Kinase CK-MB (CK-2) C-Reactive Protein Total Protein Albumin Vitamin B12 Salicylates Acetaminophen Miscellaneous Test Crossmatch 04/01/19 04/01/19 04/01/19 03:12 04:03 04:16 WBC RBC Hgb Hct MCV MCH MCHC RDW Plt Count [place] % (Auto) Lymph # Seg Neuts % (Manual) Lymphocytes % (Manual) Nucleated RBC % Seg Neutrophils # Man Lymphocytes # (Manual) Monocytes # (Manual) PT INR APTT D-Dimer POC ABG pH ABG pH POC ABG pO2 ABG pO2 ABG HCO3 ABG O2 Saturation ABG Base Excess ABG Hemoglobin VBG pH Oxyhemoglobin Sodium Potassium Chloride Carbon Dioxide BUN Creatinine Glucose POC Glucose 140 H 143 H 142 H Lactic Acid Calcium Phosphorus Magnesium Iron TIBC Direct Bilirubin AST ALT Alkaline Phosphatase Total Creatine Kinase CK-MB (CK-2) C-Reactive Protein Total Protein Albumin Vitamin B12 Salicylates Acetaminophen Miscellaneous Test Crossmatch 04/01/19 04/01/19 04/01/19 05:01 05:01 05:08 WBC RBC 2.05 L Hgb 6.8 L Hct 20.5 L MCV 100 H MCH 33 H MCHC RDW 17.7 H Plt Count 53 L [place] % (Auto) Lymph # Seg Neuts % (Manual) 71.0 H Lymphocytes % (Manual) Nucleated RBC % Seg Neutrophils # Man Lymphocytes # (Manual) Monocytes # (Manual) PT INR APTT D-Dimer POC ABG pH ABG pH POC ABG pO2 ABG pO2 ABG HCO3 ABG O2 Saturation ABG Base Excess ABG Hemoglobin VBG pH Oxyhemoglobin Sodium Potassium Chloride Carbon Dioxide BUN Creatinine Glucose POC Glucose 119 H Lactic Acid Calcium Phosphorus Magnesium Iron TIBC Direct Bilirubin 0.3 H AST 4601 H ALT 1542 H Alkaline Phosphatase 185 H Total Creatine Kinase CK-MB (CK-2) C-Reactive Protein Total Protein 3.8 L Albumin 1.6 L Vitamin B12 Salicylates Acetaminophen Miscellaneous Test Crossmatch 04/01/19 04/01/19 04/01/19 05:23 06:37 08:15 WBC RBC Hgb Hct MCV MCH MCHC RDW Plt Count [place] % (Auto) Lymph # Seg Neuts % (Manual) Lymphocytes % (Manual) Nucleated RBC % Seg Neutrophils # Man Lymphocytes # (Manual) Monocytes # (Manual) PT INR APTT D-Dimer POC ABG pH ABG pH POC ABG pO2 ABG pO2 ABG HCO3 ABG O2 Saturation ABG Base Excess ABG Hemoglobin VBG pH Oxyhemoglobin Sodium Potassium Chloride Carbon Dioxide BUN Creatinine Glucose POC Glucose 115 H 124 H 138 H Lactic Acid Calcium Phosphorus Magnesium Iron TIBC Direct Bilirubin AST ALT Alkaline Phosphatase Total Creatine Kinase CK-MB (CK-2) C-Reactive Protein Total Protein Albumin Vitamin B12 Salicylates Acetaminophen Miscellaneous Test Crossmatch 04/01/19 04/01/19 04/01/19 09:50 10:10 10:31 WBC RBC Hgb 6.5 L Hct 19.2 L* MCV MCH MCHC RDW Plt Count [place] % (Auto) Lymph # Seg Neuts % (Manual) Lymphocytes % (Manual) Nucleated RBC % Seg Neutrophils # Man Lymphocytes # (Manual) Monocytes # (Manual) PT INR APTT D-Dimer POC ABG pH ABG pH POC ABG pO2 ABG pO2 ABG HCO3 ABG O2 Saturation ABG Base Excess ABG Hemoglobin VBG pH Oxyhemoglobin Sodium 149 H Potassium 3.5 L Chloride 119.9 H Carbon Dioxide 21 L BUN 33 H Creatinine 0.5 L Glucose 142 H POC Glucose 185 H Lactic Acid Calcium 7.3 L Phosphorus Magnesium Iron TIBC Direct Bilirubin AST 3686 H ALT 1440 H Alkaline Phosphatase 185 H Total Creatine Kinase CK-MB (CK-2) C-Reactive Protein Total Protein 3.7 L Albumin 1.8 L Vitamin B12 Salicylates Acetaminophen Miscellaneous Test Crossmatch 04/01/19 04/01/19 04/01/19 11:35 13:05 14:35 WBC RBC Hgb Hct MCV MCH MCHC RDW Plt Count [place] % (Auto) Lymph # Seg Neuts % (Manual) Lymphocytes % (Manual) Nucleated RBC % Seg Neutrophils # Man Lymphocytes # (Manual) Monocytes # (Manual) PT INR APTT D-Dimer POC ABG pH ABG pH POC ABG pO2 ABG pO2 ABG HCO3 ABG O2 Saturation ABG Base Excess ABG Hemoglobin VBG pH Oxyhemoglobin Sodium Potassium Chloride Carbon Dioxide BUN Creatinine Glucose POC Glucose 201 H 169 H 134 H Lactic Acid Calcium Phosphorus Magnesium Iron TIBC Direct Bilirubin AST ALT Alkaline Phosphatase Total Creatine Kinase CK-MB (CK-2) C-Reactive Protein Total Protein Albumin Vitamin B12 Salicylates Acetaminophen Miscellaneous Test Crossmatch 04/01/19 04/01/19 04/01/19 17:13 17:14 18:30 WBC RBC Hgb Hct MCV MCH MCHC RDW Plt Count [place] % (Auto) Lymph # Seg Neuts % (Manual) Lymphocytes % (Manual) Nucleated RBC % Seg Neutrophils # Man Lymphocytes # (Manual) Monocytes # (Manual) PT INR APTT D-Dimer 5203.68 H POC ABG pH ABG pH POC ABG pO2 ABG pO2 ABG HCO3 ABG O2 Saturation ABG Base Excess ABG Hemoglobin VBG pH Oxyhemoglobin Sodium Potassium Chloride Carbon Dioxide BUN Creatinine Glucose POC Glucose 69 L 128 H Lactic Acid Calcium Phosphorus Magnesium Iron TIBC Direct Bilirubin AST ALT Alkaline Phosphatase Total Creatine Kinase CK-MB (CK-2) C-Reactive Protein Total Protein Albumin Vitamin B12 Salicylates Acetaminophen Miscellaneous Test Crossmatch 04/01/19 04/01/19 04/02/19 22:50 Unknown 03:40 WBC RBC Hgb Hct MCV MCH MCHC RDW Plt Count [place] % (Auto) Lymph # Seg Neuts % (Manual) Lymphocytes % (Manual) Nucleated RBC % Seg Neutrophils # Man Lymphocytes # (Manual) Monocytes # (Manual) PT INR APTT D-Dimer POC ABG pH ABG pH POC ABG pO2 ABG pO2 78.3 L 142.8 H ABG HCO3 15.5 L ABG O2 Saturation ABG Base Excess -3.5 L -8.2 L ABG Hemoglobin 6.8 L 8.2 L VBG pH Oxyhemoglobin 94.3 L Sodium Potassium Chloride Carbon Dioxide BUN Creatinine Glucose POC Glucose 342 H Lactic Acid Calcium Phosphorus Magnesium Iron TIBC Direct Bilirubin AST ALT Alkaline Phosphatase Total Creatine Kinase CK-MB (CK-2) C-Reactive Protein Total Protein Albumin Vitamin B12 Salicylates Acetaminophen Miscellaneous Test Crossmatch 04/02/19 04/02/19 04/02/19 03:49 06:50 07:48 WBC RBC 2.65 L Hgb 8.6 L Hct 25.1 L MCV MCH MCHC RDW 17.6 H Plt Count 48 L [place] % (Auto) Lymph # Seg Neuts % (Manual) Lymphocytes % (Manual) Nucleated RBC % Seg Neutrophils # Man Lymphocytes # (Manual) Monocytes # (Manual) PT INR APTT D-Dimer POC ABG pH ABG pH POC ABG pO2 ABG pO2 ABG HCO3 ABG O2 Saturation ABG Base Excess ABG Hemoglobin VBG pH Oxyhemoglobin Sodium Potassium Chloride Carbon Dioxide BUN Creatinine Glucose POC Glucose 247 H 200 H Lactic Acid Calcium Phosphorus Magnesium Iron TIBC Direct Bilirubin AST ALT Alkaline Phosphatase Total Creatine Kinase CK-MB (CK-2) C-Reactive Protein Total Protein Albumin Vitamin B12 Salicylates Acetaminophen Miscellaneous Test Crossmatch 04/02/19 04/02/19 04/02/19 07:48 11:18 14:07 WBC RBC Hgb Hct MCV MCH MCHC RDW Plt Count [place] % (Auto) Lymph # Seg Neuts % (Manual) Lymphocytes % (Manual) Nucleated RBC % Seg Neutrophils # Man Lymphocytes # (Manual) Monocytes # (Manual) PT INR APTT D-Dimer POC ABG pH ABG pH POC ABG pO2 ABG pO2 ABG HCO3 ABG O2 Saturation ABG Base Excess ABG Hemoglobin VBG pH Oxyhemoglobin Sodium Potassium 3.5 L Chloride 115.7 H Carbon Dioxide 19 L BUN 29 H Creatinine 0.5 L Glucose 159 H POC Glucose 154 H 149 H Lactic Acid Calcium 7.5 L Phosphorus Magnesium Iron TIBC Direct Bilirubin AST 1418 H ALT 1134 H Alkaline Phosphatase 242 H Total Creatine Kinase CK-MB (CK-2) C-Reactive Protein Total Protein 4.2 L Albumin 2.1 L Vitamin B12 Salicylates Acetaminophen Miscellaneous Test Crossmatch 04/02/19 04/02/19 04/02/19 18:09 19:46 23:05 WBC RBC Hgb Hct MCV MCH MCHC RDW Plt Count [place] % (Auto) Lymph # Seg Neuts % (Manual) Lymphocytes % (Manual) Nucleated RBC % Seg Neutrophils # Man Lymphocytes # (Manual) Monocytes # (Manual) PT INR APTT D-Dimer POC ABG pH ABG pH POC ABG pO2 ABG pO2 ABG HCO3 ABG O2 Saturation ABG Base Excess ABG Hemoglobin VBG pH Oxyhemoglobin Sodium Potassium Chloride Carbon Dioxide BUN Creatinine Glucose POC Glucose 188 H 209 H 247 H Lactic Acid Calcium Phosphorus Magnesium Iron TIBC Direct Bilirubin AST ALT Alkaline Phosphatase Total Creatine Kinase CK-MB (CK-2) C-Reactive Protein Total Protein Albumin Vitamin B12 Salicylates Acetaminophen Miscellaneous Test Crossmatch 04/03/19 04/03/19 04/03/19 02:58 03:40 03:40 WBC RBC 2.87 L Hgb 9.3 L Hct 27.0 L MCV MCH MCHC RDW 17.2 H Plt Count 65 L [place] % (Auto) 9.8 H Lymph # 1.1 L Seg Neuts % (Manual) Lymphocytes % (Manual) Nucleated RBC % Seg Neutrophils # Man Lymphocytes # (Manual) Monocytes # (Manual) PT INR APTT D-Dimer POC ABG pH ABG pH POC ABG pO2 ABG pO2 ABG HCO3 ABG O2 Saturation ABG Base Excess ABG Hemoglobin VBG pH Oxyhemoglobin Sodium 147 H Potassium 3.5 L Chloride 116.7 H Carbon Dioxide 18 L BUN Creatinine 0.4 L Glucose 150 H POC Glucose 166 H Lactic Acid Calcium 8.1 L Phosphorus 2.20 L Magnesium Iron TIBC Direct Bilirubin AST 594 H ALT 861 H Alkaline Phosphatase 299 H Total Creatine Kinase CK-MB (CK-2) C-Reactive Protein Total Protein 4.4 L Albumin 2.1 L Vitamin B12 Salicylates Acetaminophen Miscellaneous Test Crossmatch 04/03/19 04/03/19 04/03/19 05:35 07:02 08:23 WBC RBC Hgb Hct MCV MCH MCHC RDW Plt Count [place] % (Auto) Lymph # Seg Neuts % (Manual) Lymphocytes % (Manual) Nucleated RBC % Seg Neutrophils # Man Lymphocytes # (Manual) Monocytes # (Manual) PT INR APTT D-Dimer POC ABG pH ABG pH POC ABG pO2 ABG pO2 97.7 H ABG HCO3 19.3 L ABG O2 Saturation ABG Base Excess -5.0 L ABG Hemoglobin 8.0 L VBG pH Oxyhemoglobin Sodium Potassium Chloride Carbon Dioxide BUN Creatinine Glucose POC Glucose 135 H 132 H Lactic Acid Calcium Phosphorus Magnesium Iron TIBC Direct Bilirubin AST ALT Alkaline Phosphatase Total Creatine Kinase CK-MB (CK-2) C-Reactive Protein Total Protein Albumin Vitamin B12 Salicylates Acetaminophen Miscellaneous Test Crossmatch 04/03/19 04/03/19 04/03/19 11:58 15:11 17:53 WBC RBC Hgb Hct MCV MCH MCHC RDW Plt Count [place] % (Auto) Lymph # Seg Neuts % (Manual) Lymphocytes % (Manual) Nucleated RBC % Seg Neutrophils # Man Lymphocytes # (Manual) Monocytes # (Manual) PT INR APTT D-Dimer POC ABG pH ABG pH POC ABG pO2 ABG pO2 ABG HCO3 ABG O2 Saturation ABG Base Excess ABG Hemoglobin VBG pH Oxyhemoglobin Sodium Potassium Chloride Carbon Dioxide BUN Creatinine Glucose POC Glucose 179 H 213 H 223 H Lactic Acid Calcium Phosphorus Magnesium Iron TIBC Direct Bilirubin AST ALT Alkaline Phosphatase Total Creatine Kinase CK-MB (CK-2) C-Reactive Protein Total Protein Albumin Vitamin B12 Salicylates Acetaminophen Miscellaneous Test Crossmatch 04/03/19 04/04/19 04/04/19 23:06 02:36 06:41 WBC RBC Hgb Hct MCV MCH MCHC RDW Plt Count [place] % (Auto) Lymph # Seg Neuts % (Manual) Lymphocytes % (Manual) Nucleated RBC % Seg Neutrophils # Man Lymphocytes # (Manual) Monocytes # (Manual) PT INR APTT D-Dimer POC ABG pH ABG pH POC ABG pO2 ABG pO2 ABG HCO3 ABG O2 Saturation ABG Base Excess ABG Hemoglobin VBG pH Oxyhemoglobin Sodium Potassium Chloride Carbon Dioxide BUN Creatinine Glucose POC Glucose 189 H 157 H 131 H Lactic Acid Calcium Phosphorus Magnesium Iron TIBC Direct Bilirubin AST ALT Alkaline Phosphatase Total Creatine Kinase CK-MB (CK-2) C-Reactive Protein Total Protein Albumin Vitamin B12 Salicylates Acetaminophen Miscellaneous Test Crossmatch 04/04/19 04/04/19 04/04/19 11:42 15:45 18:21 WBC RBC Hgb Hct MCV MCH MCHC RDW Plt Count [place] % (Auto) Lymph # Seg Neuts % (Manual) Lymphocytes % (Manual) Nucleated RBC % Seg Neutrophils # Man Lymphocytes # (Manual) Monocytes # (Manual) PT INR APTT D-Dimer POC ABG pH ABG pH POC ABG pO2 ABG pO2 ABG HCO3 ABG O2 Saturation ABG Base Excess ABG Hemoglobin VBG pH Oxyhemoglobin Sodium Potassium Chloride Carbon Dioxide BUN Creatinine Glucose POC Glucose 233 H 236 H 255 H Lactic Acid Calcium Phosphorus Magnesium Iron TIBC Direct Bilirubin AST ALT Alkaline Phosphatase Total Creatine Kinase CK-MB (CK-2) C-Reactive Protein Total Protein Albumin Vitamin B12 Salicylates Acetaminophen Miscellaneous Test Crossmatch 04/04/19 04/05/19 04/05/19 21:21 03:06 06:05 WBC RBC 2.68 L Hgb 8.5 L Hct 26.3 L MCV 98 H MCH MCHC RDW 17.4 H Plt Count [place] % (Auto) Lymph # Seg Neuts % (Manual) Lymphocytes % (Manual) Nucleated RBC % Seg Neutrophils # Man Lymphocytes # (Manual) Monocytes # (Manual) PT INR APTT D-Dimer POC ABG pH ABG pH POC ABG pO2 ABG pO2 ABG HCO3 ABG O2 Saturation ABG Base Excess ABG Hemoglobin VBG pH Oxyhemoglobin Sodium Potassium Chloride Carbon Dioxide BUN Creatinine Glucose POC Glucose 132 H 161 H Lactic Acid Calcium Phosphorus Magnesium Iron TIBC Direct Bilirubin AST ALT Alkaline Phosphatase Total Creatine Kinase CK-MB (CK-2) C-Reactive Protein Total Protein Albumin Vitamin B12 Salicylates Acetaminophen Miscellaneous Test Crossmatch 04/05/19 04/05/19 04/05/19 06:05 06:49 10:23 WBC RBC Hgb Hct MCV MCH MCHC RDW Plt Count [place] % (Auto) Lymph # Seg Neuts % (Manual) Lymphocytes % (Manual) Nucleated RBC % Seg Neutrophils # Man Lymphocytes # (Manual) Monocytes # (Manual) PT INR APTT D-Dimer POC ABG pH ABG pH POC ABG pO2 ABG pO2 ABG HCO3 ABG O2 Saturation ABG Base Excess ABG Hemoglobin VBG pH Oxyhemoglobin Sodium Potassium Chloride 112.5 H Carbon Dioxide BUN Creatinine 0.2 L Glucose 237 H POC Glucose 283 H 296 H Lactic Acid Calcium 7.9 L Phosphorus Magnesium Iron TIBC Direct Bilirubin AST ALT Alkaline Phosphatase Total Creatine Kinase CK-MB (CK-2) C-Reactive Protein Total Protein Albumin Vitamin B12 Salicylates Acetaminophen Miscellaneous Test Crossmatch 04/05/19 04/05/19 04/05/19 14:46 18:19 20:35 WBC RBC Hgb Hct MCV MCH MCHC RDW Plt Count [place] % (Auto) Lymph # Seg Neuts % (Manual) Lymphocytes % (Manual) Nucleated RBC % Seg Neutrophils # Man Lymphocytes # (Manual) Monocytes # (Manual) PT INR APTT D-Dimer POC ABG pH ABG pH POC ABG pO2 ABG pO2 ABG HCO3 ABG O2 Saturation ABG Base Excess ABG Hemoglobin VBG pH Oxyhemoglobin Sodium Potassium Chloride Carbon Dioxide BUN Creatinine Glucose POC Glucose 225 H 259 H 236 H Lactic Acid Calcium Phosphorus Magnesium Iron TIBC Direct Bilirubin AST ALT Alkaline Phosphatase Total Creatine Kinase CK-MB (CK-2) C-Reactive Protein Total Protein Albumin Vitamin B12 Salicylates Acetaminophen Miscellaneous Test Crossmatch 04/05/19 04/06/19 04/06/19 23:11 00:06 03:14 WBC RBC Hgb Hct MCV MCH MCHC RDW Plt Count [place] % (Auto) Lymph # Seg Neuts % (Manual) Lymphocytes % (Manual) Nucleated RBC % Seg Neutrophils # Man Lymphocytes # (Manual) Monocytes # (Manual) PT INR APTT D-Dimer 4526.86 H POC ABG pH ABG pH POC ABG pO2 ABG pO2 ABG HCO3 ABG O2 Saturation ABG Base Excess ABG Hemoglobin VBG pH Oxyhemoglobin Sodium Potassium Chloride Carbon Dioxide BUN Creatinine Glucose POC Glucose 205 H 228 H Lactic Acid Calcium Phosphorus Magnesium Iron TIBC Direct Bilirubin AST ALT Alkaline Phosphatase Total Creatine Kinase CK-MB (CK-2) C-Reactive Protein Total Protein Albumin Vitamin B12 Salicylates Acetaminophen Miscellaneous Test Crossmatch 04/06/19 04/06/19 04/06/19 05:20 05:20 07:57 WBC 15.1 H RBC 2.90 L Hgb 9.1 L Hct 28.0 L MCV MCH MCHC RDW 17.3 H Plt Count [place] % (Auto) Lymph # Seg Neuts % (Manual) Lymphocytes % (Manual) Nucleated RBC % Seg Neutrophils # Man Lymphocytes # (Manual) Monocytes # (Manual) PT INR APTT D-Dimer POC ABG pH ABG pH POC ABG pO2 ABG pO2 ABG HCO3 ABG O2 Saturation ABG Base Excess ABG Hemoglobin VBG pH Oxyhemoglobin Sodium Potassium Chloride Carbon Dioxide BUN Creatinine 0.2 L Glucose 161 H POC Glucose 191 H Lactic Acid Calcium 8.0 L Phosphorus Magnesium Iron TIBC Direct Bilirubin AST ALT Alkaline Phosphatase Total Creatine Kinase CK-MB (CK-2) C-Reactive Protein Total Protein Albumin Vitamin B12 Salicylates Acetaminophen Miscellaneous Test Crossmatch 04/06/19 04/06/19 04/06/19 12:09 18:24 22:07 WBC RBC Hgb Hct MCV MCH MCHC RDW Plt Count [place] % (Auto) Lymph # Seg Neuts % (Manual) Lymphocytes % (Manual) Nucleated RBC % Seg Neutrophils # Man Lymphocytes # (Manual) Monocytes # (Manual) PT INR APTT D-Dimer POC ABG pH ABG pH POC ABG pO2 ABG pO2 ABG HCO3 ABG O2 Saturation ABG Base Excess ABG Hemoglobin VBG pH Oxyhemoglobin Sodium Potassium Chloride Carbon Dioxide BUN Creatinine Glucose POC Glucose 143 H 161 H 140 H Lactic Acid Calcium Phosphorus Magnesium Iron TIBC Direct Bilirubin AST ALT Alkaline Phosphatase Total Creatine Kinase CK-MB (CK-2) C-Reactive Protein Total Protein Albumin Vitamin B12 Salicylates Acetaminophen Miscellaneous Test Crossmatch 04/07/19 04/07/19 04/07/19 03:00 04:30 04:30 WBC 13.0 H RBC 2.65 L Hgb 8.3 L Hct 25.5 L MCV MCH MCHC RDW 17.0 H Plt Count [place] % (Auto) Lymph # Seg Neuts % (Manual) Lymphocytes % (Manual) Nucleated RBC % Seg Neutrophils # Man Lymphocytes # (Manual) Monocytes # (Manual) PT INR APTT D-Dimer POC ABG pH ABG pH POC ABG pO2 ABG pO2 ABG HCO3 ABG O2 Saturation ABG Base Excess ABG Hemoglobin VBG pH Oxyhemoglobin Sodium Potassium Chloride Carbon Dioxide BUN Creatinine 0.2 L Glucose 208 H POC Glucose 224 H Lactic Acid Calcium 7.7 L Phosphorus Magnesium Iron TIBC Direct Bilirubin AST ALT Alkaline Phosphatase Total Creatine Kinase CK-MB (CK-2) C-Reactive Protein Total Protein Albumin Vitamin B12 Salicylates Acetaminophen Miscellaneous Test Crossmatch 04/07/19 04/07/19 04/07/19 05:47 08:27 10:33 WBC RBC Hgb Hct MCV MCH MCHC RDW Plt Count [place] % (Auto) Lymph # Seg Neuts % (Manual) Lymphocytes % (Manual) Nucleated RBC % Seg Neutrophils # Man Lymphocytes # (Manual) Monocytes # (Manual) PT INR APTT D-Dimer POC ABG pH ABG pH POC ABG pO2 ABG pO2 ABG HCO3 ABG O2 Saturation ABG Base Excess ABG Hemoglobin VBG pH Oxyhemoglobin Sodium Potassium Chloride Carbon Dioxide BUN Creatinine Glucose POC Glucose 225 H 176 H 207 H Lactic Acid Calcium Phosphorus Magnesium Iron TIBC Direct Bilirubin AST ALT Alkaline Phosphatase Total Creatine Kinase CK-MB (CK-2) C-Reactive Protein Total Protein Albumin Vitamin B12 Salicylates Acetaminophen Miscellaneous Test Crossmatch 04/07/19 04/07/19 04/07/19 14:13 18:32 22:42 WBC RBC Hgb Hct MCV MCH MCHC RDW Plt Count [place] % (Auto) Lymph # Seg Neuts % (Manual) Lymphocytes % (Manual) Nucleated RBC % Seg Neutrophils # Man Lymphocytes # (Manual) Monocytes # (Manual) PT INR APTT D-Dimer POC ABG pH ABG pH POC ABG pO2 ABG pO2 ABG HCO3 ABG O2 Saturation ABG Base Excess ABG Hemoglobin VBG pH Oxyhemoglobin Sodium Potassium Chloride Carbon Dioxide BUN Creatinine Glucose POC Glucose 219 H 227 H 238 H Lactic Acid Calcium Phosphorus Magnesium Iron TIBC Direct Bilirubin AST ALT Alkaline Phosphatase Total Creatine Kinase CK-MB (CK-2) C-Reactive Protein Total Protein Albumin Vitamin B12 Salicylates Acetaminophen Miscellaneous Test Crossmatch 04/08/19 04/08/19 04/08/19 02:31 05:37 14:10 WBC RBC Hgb Hct MCV MCH MCHC RDW Plt Count [place] % (Auto) Lymph # Seg Neuts % (Manual) Lymphocytes % (Manual) Nucleated RBC % Seg Neutrophils # Man Lymphocytes # (Manual) Monocytes # (Manual) PT INR APTT D-Dimer POC ABG pH ABG pH POC ABG pO2 ABG pO2 ABG HCO3 ABG O2 Saturation ABG Base Excess ABG Hemoglobin VBG pH Oxyhemoglobin Sodium Potassium Chloride Carbon Dioxide BUN Creatinine Glucose POC Glucose 194 H 194 H 139 H Lactic Acid Calcium Phosphorus Magnesium Iron TIBC Direct Bilirubin AST ALT Alkaline Phosphatase Total Creatine Kinase CK-MB (CK-2) C-Reactive Protein Total Protein Albumin Vitamin B12 Salicylates Acetaminophen Miscellaneous Test Crossmatch 04/08/19 04/08/19 04/09/19 17:43 23:20 03:28 WBC RBC Hgb Hct MCV MCH MCHC RDW Plt Count [place] % (Auto) Lymph # Seg Neuts % (Manual) Lymphocytes % (Manual) Nucleated RBC % Seg Neutrophils # Man Lymphocytes # (Manual) Monocytes # (Manual) PT INR APTT D-Dimer POC ABG pH ABG pH POC ABG pO2 ABG pO2 ABG HCO3 ABG O2 Saturation ABG Base Excess ABG Hemoglobin VBG pH Oxyhemoglobin Sodium Potassium Chloride Carbon Dioxide BUN Creatinine Glucose POC Glucose 261 H 277 H 301 H Lactic Acid Calcium Phosphorus Magnesium Iron TIBC Direct Bilirubin AST ALT Alkaline Phosphatase Total Creatine Kinase CK-MB (CK-2) C-Reactive Protein Total Protein Albumin Vitamin B12 Salicylates Acetaminophen Miscellaneous Test Crossmatch 04/09/19 04/09/19 04/09/19 05:35 05:35 05:35 WBC RBC 2.78 L Hgb 9.0 L Hct 26.7 L MCV MCH MCHC RDW 17.0 H Plt Count [place] % (Auto) Lymph # Seg Neuts % (Manual) Lymphocytes % (Manual) Nucleated RBC % Seg Neutrophils # Man Lymphocytes # (Manual) Monocytes # (Manual) PT INR APTT D-Dimer POC ABG pH ABG pH POC ABG pO2 ABG pO2 ABG HCO3 ABG O2 Saturation ABG Base Excess ABG Hemoglobin VBG pH Oxyhemoglobin Sodium Potassium Chloride Carbon Dioxide 31 H BUN Creatinine 0.2 L Glucose 218 H POC Glucose 240 H Lactic Acid Calcium Phosphorus Magnesium Iron TIBC Direct Bilirubin AST ALT Alkaline Phosphatase Total Creatine Kinase CK-MB (CK-2) C-Reactive Protein Total Protein Albumin Vitamin B12 Salicylates Acetaminophen Miscellaneous Test Crossmatch 04/09/19 04/09/19 04/09/19 09:01 12:23 17:33 WBC RBC Hgb Hct MCV MCH MCHC RDW Plt Count [place] % (Auto) Lymph # Seg Neuts % (Manual) Lymphocytes % (Manual) Nucleated RBC % Seg Neutrophils # Man Lymphocytes # (Manual) Monocytes # (Manual) PT INR APTT D-Dimer POC ABG pH ABG pH POC ABG pO2 ABG pO2 ABG HCO3 ABG O2 Saturation ABG Base Excess ABG Hemoglobin VBG pH Oxyhemoglobin Sodium Potassium Chloride Carbon Dioxide BUN Creatinine Glucose POC Glucose 160 H 162 H 149 H Lactic Acid Calcium Phosphorus Magnesium Iron TIBC Direct Bilirubin AST ALT Alkaline Phosphatase Total Creatine Kinase CK-MB (CK-2) C-Reactive Protein Total Protein Albumin Vitamin B12 Salicylates Acetaminophen Miscellaneous Test Crossmatch 04/09/19 04/09/19 04/10/19 21:26 22:28 03:16 WBC RBC Hgb Hct MCV MCH MCHC RDW Plt Count [place] % (Auto) Lymph # Seg Neuts % (Manual) Lymphocytes % (Manual) Nucleated RBC % Seg Neutrophils # Man Lymphocytes # (Manual) Monocytes # (Manual) PT INR APTT D-Dimer POC ABG pH ABG pH POC ABG pO2 ABG pO2 ABG HCO3 ABG O2 Saturation ABG Base Excess ABG Hemoglobin VBG pH Oxyhemoglobin Sodium Potassium Chloride Carbon Dioxide BUN Creatinine Glucose POC Glucose 196 H 224 H 163 H Lactic Acid Calcium Phosphorus Magnesium Iron TIBC Direct Bilirubin AST ALT Alkaline Phosphatase Total Creatine Kinase CK-MB (CK-2) C-Reactive Protein Total Protein Albumin Vitamin B12 Salicylates Acetaminophen Miscellaneous Test Crossmatch 04/10/19 04/10/19 04/10/19 04:15 04:15 05:30 WBC RBC 2.88 L Hgb 9.2 L Hct 27.9 L MCV MCH MCHC RDW 17.0 H Plt Count 454 H [place] % (Auto) Lymph # Seg Neuts % (Manual) Lymphocytes % (Manual) Nucleated RBC % Seg Neutrophils # Man Lymphocytes # (Manual) Monocytes # (Manual) PT INR APTT D-Dimer POC ABG pH ABG pH POC ABG pO2 ABG pO2 ABG HCO3 ABG O2 Saturation ABG Base Excess ABG Hemoglobin VBG pH Oxyhemoglobin Sodium Potassium Chloride Carbon Dioxide 32 H BUN Creatinine 0.2 L Glucose 126 H POC Glucose 135 H Lactic Acid Calcium Phosphorus Magnesium Iron TIBC Direct Bilirubin AST ALT Alkaline Phosphatase Total Creatine Kinase CK-MB (CK-2) C-Reactive Protein Total Protein Albumin Vitamin B12 Salicylates Acetaminophen Miscellaneous Test Crossmatch 04/10/19 04/10/19 04/10/19 12:14 15:29 23:38 WBC RBC Hgb Hct MCV MCH MCHC RDW Plt Count [place] % (Auto) Lymph # Seg Neuts % (Manual) Lymphocytes % (Manual) Nucleated RBC % Seg Neutrophils # Man Lymphocytes # (Manual) Monocytes # (Manual) PT INR APTT D-Dimer POC ABG pH ABG pH POC ABG pO2 ABG pO2 ABG HCO3 ABG O2 Saturation ABG Base Excess ABG Hemoglobin VBG pH Oxyhemoglobin Sodium Potassium Chloride Carbon Dioxide BUN Creatinine Glucose POC Glucose 109 H 149 H 268 H Lactic Acid Calcium Phosphorus Magnesium Iron TIBC Direct Bilirubin AST ALT Alkaline Phosphatase Total Creatine Kinase CK-MB (CK-2) C-Reactive Protein Total Protein Albumin Vitamin B12 Salicylates Acetaminophen Miscellaneous Test Crossmatch 04/11/19 04/11/19 04/11/19 05:27 12:08 18:08 WBC RBC Hgb Hct MCV MCH MCHC RDW Plt Count [place] % (Auto) Lymph # Seg Neuts % (Manual) Lymphocytes % (Manual) Nucleated RBC % Seg Neutrophils # Man Lymphocytes # (Manual) Monocytes # (Manual) PT INR APTT D-Dimer POC ABG pH ABG pH POC ABG pO2 ABG pO2 ABG HCO3 ABG O2 Saturation ABG Base Excess ABG Hemoglobin VBG pH Oxyhemoglobin Sodium Potassium Chloride Carbon Dioxide BUN Creatinine Glucose POC Glucose 109 H 185 H 190 H Lactic Acid Calcium Phosphorus Magnesium Iron TIBC Direct Bilirubin AST ALT Alkaline Phosphatase Total Creatine Kinase CK-MB (CK-2) C-Reactive Protein Total Protein Albumin Vitamin B12 Salicylates Acetaminophen Miscellaneous Test Crossmatch 04/11/19 04/12/19 04/12/19 23:23 06:00 11:42 WBC RBC Hgb Hct MCV MCH MCHC RDW Plt Count [place] % (Auto) Lymph # Seg Neuts % (Manual) Lymphocytes % (Manual) Nucleated RBC % Seg Neutrophils # Man Lymphocytes # (Manual) Monocytes # (Manual) PT INR APTT D-Dimer POC ABG pH ABG pH POC ABG pO2 ABG pO2 ABG HCO3 ABG O2 Saturation ABG Base Excess ABG Hemoglobin VBG pH Oxyhemoglobin Sodium Potassium Chloride Carbon Dioxide BUN Creatinine Glucose POC Glucose 127 H 201 H 161 H Lactic Acid Calcium Phosphorus Magnesium Iron TIBC Direct Bilirubin AST ALT Alkaline Phosphatase Total Creatine Kinase CK-MB (CK-2) C-Reactive Protein Total Protein Albumin Vitamin B12 Salicylates Acetaminophen Miscellaneous Test Crossmatch 04/12/19 04/12/19 04/12/19 17:56 20:07 21:59 WBC RBC Hgb Hct MCV MCH MCHC RDW Plt Count [place] % (Auto) Lymph # Seg Neuts % (Manual) Lymphocytes % (Manual) Nucleated RBC % Seg Neutrophils # Man Lymphocytes # (Manual) Monocytes # (Manual) PT INR APTT D-Dimer POC ABG pH ABG pH POC ABG pO2 ABG pO2 ABG HCO3 ABG O2 Saturation ABG Base Excess ABG Hemoglobin VBG pH Oxyhemoglobin Sodium Potassium Chloride Carbon Dioxide BUN Creatinine Glucose POC Glucose 145 H 158 H 203 H Lactic Acid Calcium Phosphorus Magnesium Iron TIBC Direct Bilirubin AST ALT Alkaline Phosphatase Total Creatine Kinase CK-MB (CK-2) C-Reactive Protein Total Protein Albumin Vitamin B12 Salicylates Acetaminophen Miscellaneous Test Crossmatch 04/12/19 04/13/19 04/13/19 23:37 08:50 08:50 WBC 15.7 H RBC 3.12 L Hgb Hct 30.2 L MCV MCH 33 H MCHC RDW 18.0 H Plt Count 678 H [place] % (Auto) Lymph # Seg Neuts % (Manual) Lymphocytes % (Manual) Nucleated RBC % Seg Neutrophils # Man Lymphocytes # (Manual) Monocytes # (Manual) PT INR APTT D-Dimer POC ABG pH ABG pH POC ABG pO2 ABG pO2 ABG HCO3 ABG O2 Saturation ABG Base Excess ABG Hemoglobin VBG pH Oxyhemoglobin Sodium Potassium Chloride Carbon Dioxide BUN Creatinine < 0.2 L Glucose 46 L POC Glucose 238 H Lactic Acid Calcium Phosphorus Magnesium Iron TIBC Direct Bilirubin AST ALT Alkaline Phosphatase Total Creatine Kinase CK-MB (CK-2) C-Reactive Protein Total Protein Albumin Vitamin B12 Salicylates Acetaminophen Miscellaneous Test Crossmatch 04/13/19 04/13/19 04/13/19 11:56 17:27 23:57 WBC RBC Hgb Hct MCV MCH MCHC RDW Plt Count [place] % (Auto) Lymph # Seg Neuts % (Manual) Lymphocytes % (Manual) Nucleated RBC % Seg Neutrophils # Man Lymphocytes # (Manual) Monocytes # (Manual) PT INR APTT D-Dimer POC ABG pH ABG pH POC ABG pO2 ABG pO2 ABG HCO3 ABG O2 Saturation ABG Base Excess ABG Hemoglobin VBG pH Oxyhemoglobin Sodium Potassium Chloride Carbon Dioxide BUN Creatinine Glucose POC Glucose 40 L 66 L 65 L Lactic Acid Calcium Phosphorus Magnesium Iron TIBC Direct Bilirubin AST ALT Alkaline Phosphatase Total Creatine Kinase CK-MB (CK-2) C-Reactive Protein Total Protein Albumin Vitamin B12 Salicylates Acetaminophen Miscellaneous Test Crossmatch 04/14/19 04/14/19 04/14/19 05:28 08:20 08:20 WBC 17.8 H RBC 3.26 L Hgb Hct MCV 98 H MCH MCHC RDW 18.3 H Plt Count 622 H [place] % (Auto) Lymph # Seg Neuts % (Manual) Lymphocytes % (Manual) Nucleated RBC % Seg Neutrophils # Man Lymphocytes # (Manual) Monocytes # (Manual) PT INR APTT D-Dimer POC ABG pH ABG pH POC ABG pO2 ABG pO2 ABG HCO3 ABG O2 Saturation ABG Base Excess ABG Hemoglobin VBG pH Oxyhemoglobin Sodium Potassium Chloride Carbon Dioxide BUN 6 L Creatinine < 0.2 L Glucose 154 H POC Glucose 149 H Lactic Acid Calcium Phosphorus Magnesium Iron TIBC Direct Bilirubin AST ALT Alkaline Phosphatase Total Creatine Kinase CK-MB (CK-2) C-Reactive Protein Total Protein Albumin Vitamin B12 Salicylates Acetaminophen Miscellaneous Test Crossmatch 04/14/19 04/14/19 04/14/19 12:16 17:54 23:35 WBC RBC Hgb Hct MCV MCH MCHC RDW Plt Count [place] % (Auto) Lymph # Seg Neuts % (Manual) Lymphocytes % (Manual) Nucleated RBC % Seg Neutrophils # Man Lymphocytes # (Manual) Monocytes # (Manual) PT INR APTT D-Dimer POC ABG pH ABG pH POC ABG pO2 ABG pO2 ABG HCO3 ABG O2 Saturation ABG Base Excess ABG Hemoglobin VBG pH Oxyhemoglobin Sodium Potassium Chloride Carbon Dioxide BUN Creatinine Glucose POC Glucose 176 H 224 H 173 H Lactic Acid Calcium Phosphorus Magnesium Iron TIBC Direct Bilirubin AST ALT Alkaline Phosphatase Total Creatine Kinase CK-MB (CK-2) C-Reactive Protein Total Protein Albumin Vitamin B12 Salicylates Acetaminophen Miscellaneous Test Crossmatch 04/15/19 05:44 WBC RBC Hgb Hct MCV MCH MCHC RDW Plt Count [place] % (Auto) Lymph # Seg Neuts % (Manual) Lymphocytes % (Manual) Nucleated RBC % Seg Neutrophils # Man Lymphocytes # (Manual) Monocytes # (Manual) PT INR APTT D-Dimer POC ABG pH ABG pH POC ABG pO2 ABG pO2 ABG HCO3 ABG O2 Saturation ABG Base Excess ABG Hemoglobin VBG pH Oxyhemoglobin Sodium Potassium Chloride Carbon Dioxide BUN Creatinine Glucose POC Glucose 255 H Lactic Acid Calcium Phosphorus Magnesium Iron TIBC Direct Bilirubin AST ALT Alkaline Phosphatase Total Creatine Kinase CK-MB (CK-2) C-Reactive Protein Total Protein Albumin Vitamin B12 Salicylates Acetaminophen Miscellaneous Test Crossmatch Chest x-ray: image reviewed (possible LLL volume loss vs rotation) Allied health notes reviewed: nursing
[2019-04-15] MEDS: LANTUS SUB-Q SCH (22:09)
[2019-04-15] MEDS: D50W (25GM) Syringe IV PRN (23:36)
[2019-04-16] MEDS: HumuLIN R SUB-Q SCH ×5 (00:20→23:08)
--- NOTE | 2019-04-16 08:31 | Progress Note ---
Assessment and Plan Acute toxic metabolic encephalopathy. Diabetic ketoacidosis. Severe sepsis with shock. Possible aspiration pneumonia. History of polysubstance abuse. Leukocytosis. Elevated serum transaminases, possible shock liver. Hyponatremia related to her severe hyperglycemia. Anemia that is macrocytic. History of seizure disorder. Severe metabolic acidosis. Acute kidney injury, possibly on chronic - place on T-piece as tolerated - get ABG at 9pm tonight and if acceptable keep on RTC - continue daily SAT and SBT assessments as tolerated - continue metoprolol at 25 mg po bid scheduled - continue prn IV metoprolol 5mg q6h for pulse > 130/min - continue fentanyl 25 mics/hr patch re: chronic back pain - continue set rate at 12/min while resting - continue contact isolation - continue to follow mental status closely - follow clinically off AB's at this point - continue enteral nutrition with glucerna and adjust rate per chief librarian circulation department - continue bronchodilators with pulmonary hygiene per RT - VAP bundle addressed - continue to wean supplemental O2 to keep O2 sats > 90% - VTE prophylaxis with lovenox - Stress ulcer prophylaxis - continue accuchecks with glycemic control per SSI for target blood glucose 140-180 mg/dL - continue empiric antibiotics; de-escalate per ID rec's and based on clinical and microbiologic data - sedation target of RASS 0 to -1 - continue Keppra for seizures - continue mobility protocols / off loading for pressure ulcer prevention - Critical care bundles addressed - continue Seizure precautions - fall precautions - neuro-checks per RN - continue other care per attending / other consultants CONDITION: CRITICAL PROGNOSIS: GUARDED TO GRAVE CODE STATUS: FULL CODE The high probability of a clinically significant, sudden or life threatening deterioration of the [Neurology Respiratory, Cardiovascular] system(s) required my full and direct attention, intervention and personal management. The aggregate critical care time was [32] minutes. This time is in addition to time spent performing reported procedures but includes the following: [x] Data Review and interpretation [x] Patient assessment and monitoring of vital signs [x] Documentation [x] Medication orders and management Subjective Date of service: 04/16/19 Principal diagnosis: Ac Hypoxemic Resp Failure; DKA; Severe sepsis with shock; ANGELICA Interval history: Patient is seen today for: Acute Hypoxemic Resp Failure; Ac toxic metabolic encephalopathy; DKA; Severe sepsis with shock; Possible aspiration pneumonia; History of polysubstance abuse; History of seizure disorder; Acute kidney injury, possibly on chronic Seen and examined at bedside; 24hour events reviewed; nursing and respiratory care staff consulted; no adverse overnight events reported to me; resting peacefully in bed; AMS is persistent; remains on MVS; no emesis or overt aspiration; heart rate better controlled Objective Vital Signs - 12hr 04/15/19 04/15/19 04/15/19 21:00 22:00 22:08 Temperature Pulse Rate 138 H 106 H 106 H Pulse Rate [ From Monitor] Respiratory 19 13 Rate Blood Pressure 113/74 107/70 107/70 O2 Sat by Pulse 93 96 Oximetry O2 Sat by Pulse Oximetry [ Assessment] 04/15/19 04/15/19 04/16/19 22:15 23:00 00:00 Temperature 99.0 F Pulse Rate 103 H 109 H 112 H Pulse Rate [ 112 H From Monitor] Respiratory 12 13 14 Rate Blood Pressure 106/68 104/66 108/68 O2 Sat by Pulse 97 97 97 Oximetry O2 Sat by Pulse Oximetry [ Assessment] 04/16/19 04/16/19 04/16/19 01:00 02:00 03:01 Temperature Pulse Rate 107 H 116 H 122 H Pulse Rate [ From Monitor] Respiratory 13 14 22 Rate Blood Pressure 105/69 106/68 108/64 O2 Sat by Pulse 99 94 Oximetry O2 Sat by Pulse Oximetry [ Assessment] 04/16/19 04/16/19 04/16/19 04:00 04:15 05:00 Temperature 98.7 F Pulse Rate 120 H 116 H 111 H Pulse Rate [ 116 H From Monitor] Respiratory 13 13 Rate Blood Pressure 116/80 116/80 117/75 O2 Sat by Pulse 97 95 95 Oximetry O2 Sat by Pulse Oximetry [ Assessment] 04/16/19 04/16/19 04/16/19 06:00 07:00 07:58 Temperature Pulse Rate 111 H 107 H 110 H Pulse Rate [ From Monitor] Respiratory 13 13 12 Rate Blood Pressure 121/83 124/83 121/83 O2 Sat by Pulse 98 99 96 Oximetry O2 Sat by Pulse Oximetry [ Assessment] 04/16/19 08:00 Temperature Pulse Rate Pulse Rate [ From Monitor] Respiratory Rate Blood Pressure O2 Sat by Pulse Oximetry O2 Sat by Pulse 98 Oximetry [ Assessment] Constitutional: no acute distress, other (young CF normocephalic and atraumatic on MVS) Eyes: non-icteric ENT: oropharynx moist, other (s/p tracheostomy) Neck: supple, no lymphadenopathy, no JVD Effort: mildly labored Ascultation: Bilateral: rhonchi (bases) Percussion: Bilateral: not dull Cardiovascular: regular rate and rhythm, other (sinus tachycardia) Gastrointestinal: hypoactive bowel sounds, soft, non-tender, non-distended Integumentary: erythema (noted on upper extremity) Extremities: no cyanosis, pink and warm, pulses normal, no ischemia or petechiae, edema (trace to 1+) Neurologic: unable to assess (remains unresponsive, opens eyes on suctioning, not obeying commands) Psychiatric: other (unable to assess) CBC and BMP: 04/16/19 09:06 04/16/19 09:06 ABG, PT/INR, D-dimer: ABG POC ABG pH 7.461 (7.35-7.45) H 04/15/19 18:06 ABG pH 7.396 pH Units (7.350-7.450) 04/03/19 05:35 POC ABG pCO2 45.5 (35-45) H 04/15/19 18:06 ABG pCO2 32.2 mm Hg 04/03/19 05:35 POC ABG pO2 87 (80-105) 04/15/19 18:06 ABG pO2 97.7 mm Hg (80.0-90.0) H 04/03/19 05:35 POC ABG HCO3 32.5 (22-26 mml/L) 04/15/19 18:06 POC ABG Total CO2 34 (23-27mmol/L) 04/15/19 18:06 POC ABG O2 Sat 97 04/15/19 18:06 ABG O2 Saturation 97.6 % (95.0-99.0) 04/03/19 05:35 PT/INR, D-dimer PT 13.9 Sec. (12.2-14.9) 04/01/19 17:14 INR 1.10 (0.87-1.13) 04/01/19 17:14 4526.86 ng/mlDDU (0-234) H 04/06/19 00:06 Abnormal lab findings: Abnormal Labs 09/05/19 09/05/19 09/05/19 19:11 19:20 19:20 WBC 26.7 H RBC 2.52 L Hgb 8.1 L Hct MCV 148 H MCH MCHC 22 L RDW 18.5 H Plt Count [place] % (Auto) Lymph # Seg Neuts % (Manual) 82.0 H Lymphocytes % (Manual) 7.0 L Nucleated RBC % Seg Neutrophils # Man 21.9 H Lymphocytes # (Manual) Monocytes # (Manual) 1.9 H PT 21.8 H INR 1.95 H APTT 74.5 H* D-Dimer POC ABG pH ABG pH POC ABG pCO2 POC ABG pO2 ABG pO2 ABG HCO3 ABG O2 Saturation ABG Base Excess ABG Hemoglobin VBG pH Oxyhemoglobin Sodium Potassium Chloride Carbon Dioxide BUN Creatinine Glucose POC Glucose > 500 H Lactic Acid Calcium Phosphorus Magnesium Iron TIBC Direct Bilirubin AST ALT Alkaline Phosphatase Total Creatine Kinase CK-MB (CK-2) C-Reactive Protein Total Protein Albumin Vitamin B12 Salicylates Acetaminophen Miscellaneous Test Crossmatch 03/29/19 03/29/19 03/29/19 19:20 19:47 20:59 WBC RBC Hgb Hct MCV MCH MCHC RDW Plt Count [place] % (Auto) Lymph # Seg Neuts % (Manual) Lymphocytes % (Manual) Nucleated RBC % Seg Neutrophils # Man Lymphocytes # (Manual) Monocytes # (Manual) PT INR APTT D-Dimer POC ABG pH 6.892 L ABG pH POC ABG pCO2 POC ABG pO2 236 H ABG pO2 ABG HCO3 ABG O2 Saturation ABG Base Excess ABG Hemoglobin VBG pH 6.800 L* Oxyhemoglobin Sodium 118 L* Potassium 9.0 H* Chloride 64.5 L Carbon Dioxide 7 L* BUN 53 H Creatinine 2.1 H Glucose 2196 H* POC Glucose Lactic Acid Calcium 12.4 H* Phosphorus Magnesium Iron TIBC Direct Bilirubin AST 3900 H ALT 1034 H Alkaline Phosphatase 316 H Total Creatine Kinase CK-MB (CK-2) C-Reactive Protein Total Protein 5.1 L Albumin 2.8 L Vitamin B12 Salicylates Acetaminophen Miscellaneous Test Crossmatch 03/29/19 03/29/19 03/29/19 22:45 22:45 22:45 WBC RBC Hgb Hct MCV MCH MCHC RDW Plt Count [place] % (Auto) Lymph # Seg Neuts % (Manual) Lymphocytes % (Manual) Nucleated RBC % Seg Neutrophils # Man Lymphocytes # (Manual) Monocytes # (Manual) PT INR APTT D-Dimer POC ABG pH ABG pH POC ABG pCO2 POC ABG pO2 ABG pO2 ABG HCO3 ABG O2 Saturation ABG Base Excess ABG Hemoglobin VBG pH Oxyhemoglobin Sodium 132 L D Potassium 7.0 H* Chloride 84.3 L Carbon Dioxide 3 L* BUN 48 H Creatinine 1.8 H Glucose 1779 H* POC Glucose Lactic Acid Calcium Phosphorus 21.70 H Magnesium 4.70 H Iron TIBC Direct Bilirubin AST ALT Alkaline Phosphatase Total Creatine Kinase 363 H CK-MB (CK-2) C-Reactive Protein Total Protein Albumin Vitamin B12 Salicylates Acetaminophen Miscellaneous Test Crossmatch 03/29/19 03/29/19 03/30/19 Unknown Unknown 00:11 WBC RBC Hgb Hct MCV MCH MCHC RDW Plt Count [place] % (Auto) Lymph # Seg Neuts % (Manual) Lymphocytes % (Manual) Nucleated RBC % Seg Neutrophils # Man Lymphocytes # (Manual) Monocytes # (Manual) PT INR APTT D-Dimer POC ABG pH ABG pH POC ABG pCO2 POC ABG pO2 ABG pO2 ABG HCO3 ABG O2 Saturation ABG Base Excess ABG Hemoglobin VBG pH Oxyhemoglobin Sodium 122 L Potassium 7.9 H* 6.4 H* Chloride 75.3 L 89.7 L Carbon Dioxide 3 L* 12 L D BUN 52 H 46 H Creatinine 2.0 H 1.7 H Glucose 2043 H* 1591 H* POC Glucose Lactic Acid Calcium 7.8 L Phosphorus 19.30 H Magnesium 3.90 H Iron TIBC Direct Bilirubin AST ALT Alkaline Phosphatase Total Creatine Kinase CK-MB (CK-2) C-Reactive Protein Total Protein Albumin Vitamin B12 Salicylates Acetaminophen Miscellaneous Test Crossmatch 03/30/19 03/30/19 03/30/19 00:11 02:14 02:14 WBC RBC Hgb Hct MCV MCH MCHC RDW Plt Count [place] % (Auto) Lymph # Seg Neuts % (Manual) Lymphocytes % (Manual) Nucleated RBC % Seg Neutrophils # Man Lymphocytes # (Manual) Monocytes # (Manual) PT INR APTT D-Dimer POC ABG pH ABG pH POC ABG pCO2 POC ABG pO2 ABG pO2 ABG HCO3 ABG O2 Saturation ABG Base Excess ABG Hemoglobin VBG pH Oxyhemoglobin Sodium Potassium Chloride Carbon Dioxide 9 L* BUN 45 H Creatinine 1.7 H Glucose 1155 H* POC Glucose Lactic Acid Calcium 7.9 L Phosphorus 10.90 H D 5.30 H D Magnesium 3.10 H 2.90 H Iron TIBC Direct Bilirubin AST ALT Alkaline Phosphatase Total Creatine Kinase CK-MB (CK-2) C-Reactive Protein Total Protein Albumin Vitamin B12 Salicylates Acetaminophen Miscellaneous Test Crossmatch 03/30/19 03/30/19 03/30/19 03:15 03:30 04:23 WBC 18.0 H RBC 2.31 L Hgb 7.3 L Hct 23.8 L D MCV 103 H MCH MCHC RDW 17.1 H Plt Count [place] % (Auto) Lymph # Seg Neuts % (Manual) 79.0 H Lymphocytes % (Manual) Nucleated RBC % Seg Neutrophils # Man 14.2 H Lymphocytes # (Manual) Monocytes # (Manual) PT INR APTT D-Dimer POC ABG pH 7.251 L ABG pH POC ABG pCO2 POC ABG pO2 156 H ABG pO2 ABG HCO3 ABG O2 Saturation ABG Base Excess ABG Hemoglobin VBG pH Oxyhemoglobin Sodium Potassium Chloride Carbon Dioxide BUN Creatinine Glucose POC Glucose Lactic Acid Calcium Phosphorus Magnesium Iron TIBC Direct Bilirubin AST ALT Alkaline Phosphatase Total Creatine Kinase CK-MB (CK-2) C-Reactive Protein Total Protein Albumin Vitamin B12 Salicylates Acetaminophen Miscellaneous Test Crossmatch See Detail 03/30/19 03/30/19 03/30/19 05:26 05:26 10:38 WBC RBC Hgb Hct MCV MCH MCHC RDW Plt Count [place] % (Auto) Lymph # Seg Neuts % (Manual) Lymphocytes % (Manual) Nucleated RBC % Seg Neutrophils # Man Lymphocytes # (Manual) Monocytes # (Manual) PT INR APTT D-Dimer POC ABG pH ABG pH POC ABG pCO2 POC ABG pO2 ABG pO2 ABG HCO3 ABG O2 Saturation ABG Base Excess ABG Hemoglobin VBG pH Oxyhemoglobin Sodium 158 H D Potassium 3.5 L Chloride 109.3 H Carbon Dioxide 19 L D BUN 40 H Creatinine 1.5 H Glucose 760 H* POC Glucose 380 H Lactic Acid Calcium 7.3 L Phosphorus Magnesium 2.60 H Iron TIBC Direct Bilirubin AST 25253 H ALT 2156 H Alkaline Phosphatase 271 H Total Creatine Kinase 2465 H CK-MB (CK-2) 52.7 H C-Reactive Protein Total Protein 4.5 L Albumin 2.4 L Vitamin B12 Salicylates Acetaminophen Miscellaneous Test Crossmatch 03/30/19 03/30/19 03/30/19 11:08 12:25 12:57 WBC RBC Hgb Hct MCV MCH MCHC RDW Plt Count [place] % (Auto) Lymph # Seg Neuts % (Manual) Lymphocytes % (Manual) Nucleated RBC % Seg Neutrophils # Man Lymphocytes # (Manual) Monocytes # (Manual) PT INR APTT D-Dimer POC ABG pH ABG pH POC ABG pCO2 POC ABG pO2 ABG pO2 ABG HCO3 ABG O2 Saturation ABG Base Excess ABG Hemoglobin VBG pH Oxyhemoglobin Sodium 156 H Potassium 3.2 L Chloride 116.4 H Carbon Dioxide 21 L BUN 37 H Creatinine Glucose 162 H POC Glucose 263 H 196 H Lactic Acid Calcium 7.2 L Phosphorus Magnesium Iron TIBC Direct Bilirubin AST ALT Alkaline Phosphatase Total Creatine Kinase CK-MB (CK-2) C-Reactive Protein Total Protein Albumin Vitamin B12 Salicylates Acetaminophen Miscellaneous Test Crossmatch 03/30/19 03/30/19 03/30/19 12:57 12:57 12:57 WBC RBC Hgb Hct MCV MCH MCHC RDW Plt Count [place] % (Auto) Lymph # Seg Neuts % (Manual) Lymphocytes % (Manual) Nucleated RBC % Seg Neutrophils # Man Lymphocytes # (Manual) Monocytes # (Manual) PT 21.0 H INR 1.86 H APTT D-Dimer POC ABG pH ABG pH POC ABG pCO2 POC ABG pO2 ABG pO2 ABG HCO3 ABG O2 Saturation ABG Base Excess ABG Hemoglobin VBG pH Oxyhemoglobin Sodium Potassium Chloride Carbon Dioxide BUN Creatinine Glucose POC Glucose Lactic Acid 9.00 H* Calcium Phosphorus Magnesium Iron TIBC Direct Bilirubin AST ALT Alkaline Phosphatase Total Creatine Kinase CK-MB (CK-2) C-Reactive Protein 2.40 H Total Protein Albumin Vitamin B12 Salicylates Acetaminophen Miscellaneous Test Crossmatch 03/30/19 03/30/19 03/30/19 13:23 14:00 14:47 WBC RBC Hgb Hct MCV MCH MCHC RDW Plt Count [place] % (Auto) Lymph # Seg Neuts % (Manual) Lymphocytes % (Manual) Nucleated RBC % Seg Neutrophils # Man Lymphocytes # (Manual) Monocytes # (Manual) PT INR APTT D-Dimer POC ABG pH ABG pH POC ABG pCO2 POC ABG pO2 ABG pO2 ABG HCO3 ABG O2 Saturation ABG Base Excess ABG Hemoglobin VBG pH Oxyhemoglobin Sodium Potassium Chloride Carbon Dioxide BUN Creatinine Glucose POC Glucose 176 H 245 H Lactic Acid Calcium Phosphorus Magnesium Iron TIBC Direct Bilirubin AST ALT Alkaline Phosphatase Total Creatine Kinase CK-MB (CK-2) C-Reactive Protein Total Protein Albumin Vitamin B12 Salicylates Acetaminophen Miscellaneous Test Flexitest 1 H Crossmatch 03/30/19 03/30/19 03/30/19 16:11 17:11 17:46 WBC RBC Hgb Hct MCV MCH MCHC RDW Plt Count [place] % (Auto) Lymph # Seg Neuts % (Manual) Lymphocytes % (Manual) Nucleated RBC % Seg Neutrophils # Man Lymphocytes # (Manual) Monocytes # (Manual) PT INR APTT D-Dimer POC ABG pH ABG pH POC ABG pCO2 POC ABG pO2 ABG pO2 ABG HCO3 ABG O2 Saturation ABG Base Excess ABG Hemoglobin VBG pH Oxyhemoglobin Sodium Potassium Chloride Carbon Dioxide BUN Creatinine Glucose POC Glucose 181 H 167 H 125 H Lactic Acid Calcium Phosphorus Magnesium Iron TIBC Direct Bilirubin AST ALT Alkaline Phosphatase Total Creatine Kinase CK-MB (CK-2) C-Reactive Protein Total Protein Albumin Vitamin B12 Salicylates Acetaminophen Miscellaneous Test Crossmatch 03/30/19 03/30/19 03/30/19 18:59 21:31 22:19 WBC RBC Hgb Hct MCV MCH MCHC RDW Plt Count [place] % (Auto) Lymph # Seg Neuts % (Manual) Lymphocytes % (Manual) Nucleated RBC % Seg Neutrophils # Man Lymphocytes # (Manual) Monocytes # (Manual) PT INR APTT D-Dimer POC ABG pH ABG pH POC ABG pCO2 POC ABG pO2 ABG pO2 ABG HCO3 ABG O2 Saturation ABG Base Excess ABG Hemoglobin VBG pH Oxyhemoglobin Sodium Potassium Chloride Carbon Dioxide BUN Creatinine Glucose POC Glucose 140 H 166 H 115 H Lactic Acid Calcium Phosphorus Magnesium Iron TIBC Direct Bilirubin AST ALT Alkaline Phosphatase Total Creatine Kinase CK-MB (CK-2) C-Reactive Protein Total Protein Albumin Vitamin B12 Salicylates Acetaminophen Miscellaneous Test Crossmatch 03/30/19 03/30/19 03/30/19 23:13 Unknown Unknown WBC RBC Hgb Hct MCV MCH MCHC RDW Plt Count [place] % (Auto) Lymph # Seg Neuts % (Manual) Lymphocytes % (Manual) Nucleated RBC % Seg Neutrophils # Man Lymphocytes # (Manual) Monocytes # (Manual) PT INR APTT D-Dimer POC ABG pH ABG pH POC ABG pCO2 POC ABG pO2 ABG pO2 47.8 L ABG HCO3 18.8 L ABG O2 Saturation 83.8 L ABG Base Excess -5.4 L ABG Hemoglobin 6.8 L VBG pH Oxyhemoglobin 81.8 L Sodium 157 H Potassium 3.3 L Chloride 117.9 H Carbon Dioxide 20 L BUN 36 H Creatinine Glucose 150 H POC Glucose 112 H Lactic Acid Calcium 7.2 L Phosphorus Magnesium Iron TIBC Direct Bilirubin AST ALT Alkaline Phosphatase Total Creatine Kinase CK-MB (CK-2) C-Reactive Protein Total Protein Albumin Vitamin B12 Salicylates Acetaminophen Miscellaneous Test Crossmatch 03/30/19 03/30/19 03/31/19 Unknown Unknown 00:03 WBC RBC Hgb Hct MCV MCH MCHC RDW Plt Count [place] % (Auto) Lymph # Seg Neuts % (Manual) Lymphocytes % (Manual) Nucleated RBC % Seg Neutrophils # Man Lymphocytes # (Manual) Monocytes # (Manual) PT INR APTT D-Dimer POC ABG pH ABG pH POC ABG pCO2 POC ABG pO2 ABG pO2 ABG HCO3 ABG O2 Saturation ABG Base Excess ABG Hemoglobin VBG pH Oxyhemoglobin Sodium Potassium Chloride Carbon Dioxide BUN Creatinine Glucose POC Glucose 188 H Lactic Acid Calcium Phosphorus Magnesium Iron TIBC Direct Bilirubin AST ALT Alkaline Phosphatase Total Creatine Kinase CK-MB (CK-2) C-Reactive Protein Total Protein Albumin Vitamin B12 Salicylates 0.8 L Acetaminophen < 5.0 L Miscellaneous Test Crossmatch 03/31/19 03/31/19 03/31/19 01:18 03:07 03:50 WBC RBC Hgb Hct MCV MCH MCHC RDW Plt Count [place] % (Auto) Lymph # Seg Neuts % (Manual) Lymphocytes % (Manual) Nucleated RBC % Seg Neutrophils # Man Lymphocytes # (Manual) Monocytes # (Manual) PT INR APTT D-Dimer POC ABG pH ABG pH 7.525 H POC ABG pCO2 POC ABG pO2 ABG pO2 178.0 H ABG HCO3 19.5 L ABG O2 Saturation 99.2 H ABG Base Excess -3.1 L ABG Hemoglobin 5.8 L VBG pH Oxyhemoglobin Sodium Potassium Chloride Carbon Dioxide BUN Creatinine Glucose POC Glucose 114 H 107 H Lactic Acid Calcium Phosphorus Magnesium Iron TIBC Direct Bilirubin AST ALT Alkaline Phosphatase Total Creatine Kinase CK-MB (CK-2) C-Reactive Protein Total Protein Albumin Vitamin B12 Salicylates Acetaminophen Miscellaneous Test Crossmatch 03/31/19 03/31/19 03/31/19 03:51 03:51 04:05 WBC RBC 1.89 L Hgb 6.1 L Hct 18.2 L* MCV MCH MCHC RDW 17.7 H Plt Count 89 L [place] % (Auto) Lymph # Seg Neuts % (Manual) 86.0 H Lymphocytes % (Manual) 10.0 L Nucleated RBC % 1.0 H Seg Neutrophils # Man Lymphocytes # (Manual) 0.7 L Monocytes # (Manual) PT INR APTT D-Dimer POC ABG pH ABG pH POC ABG pCO2 POC ABG pO2 ABG pO2 ABG HCO3 ABG O2 Saturation ABG Base Excess ABG Hemoglobin VBG pH Oxyhemoglobin Sodium 151 H Potassium 3.2 L Chloride 119.4 H Carbon Dioxide 17 L BUN 35 H Creatinine Glucose 139 H POC Glucose 153 H Lactic Acid Calcium 7.1 L Phosphorus Magnesium Iron TIBC Direct Bilirubin AST ALT Alkaline Phosphatase Total Creatine Kinase CK-MB (CK-2) C-Reactive Protein Total Protein Albumin Vitamin B12 Salicylates Acetaminophen Miscellaneous Test Crossmatch 03/31/19 03/31/19 03/31/19 05:05 05:35 06:23 WBC RBC Hgb Hct MCV MCH MCHC RDW Plt Count [place] % (Auto) Lymph # Seg Neuts % (Manual) Lymphocytes % (Manual) Nucleated RBC % Seg Neutrophils # Man Lymphocytes # (Manual) Monocytes # (Manual) PT INR APTT D-Dimer POC ABG pH ABG pH POC ABG pCO2 POC ABG pO2 ABG pO2 ABG HCO3 ABG O2 Saturation ABG Base Excess ABG Hemoglobin VBG pH Oxyhemoglobin Sodium Potassium Chloride Carbon Dioxide BUN Creatinine Glucose POC Glucose 176 H 133 H Lactic Acid 3.20 H* Calcium Phosphorus Magnesium Iron TIBC Direct Bilirubin AST ALT Alkaline Phosphatase Total Creatine Kinase CK-MB (CK-2) C-Reactive Protein Total Protein Albumin Vitamin B12 Salicylates Acetaminophen Miscellaneous Test Crossmatch 03/31/19 03/31/19 03/31/19 07:50 07:51 08:20 WBC RBC Hgb Hct MCV MCH MCHC RDW Plt Count [place] % (Auto) Lymph # Seg Neuts % (Manual) Lymphocytes % (Manual) Nucleated RBC % Seg Neutrophils # Man Lymphocytes # (Manual) Monocytes # (Manual) PT INR APTT D-Dimer POC ABG pH ABG pH POC ABG pCO2 POC ABG pO2 ABG pO2 ABG HCO3 ABG O2 Saturation ABG Base Excess ABG Hemoglobin VBG pH Oxyhemoglobin Sodium Potassium Chloride Carbon Dioxide BUN Creatinine Glucose POC Glucose 135 H Lactic Acid 3.30 H* Calcium Phosphorus Magnesium Iron 26 L TIBC 193 L Direct Bilirubin AST ALT Alkaline Phosphatase Total Creatine Kinase CK-MB (CK-2) C-Reactive Protein Total Protein Albumin Vitamin B12 Salicylates Acetaminophen Miscellaneous Test Crossmatch 03/31/19 03/31/19 03/31/19 08:20 08:20 09:06 WBC RBC Hgb Hct MCV MCH MCHC RDW Plt Count [place] % (Auto) Lymph # Seg Neuts % (Manual) Lymphocytes % (Manual) Nucleated RBC % Seg Neutrophils # Man Lymphocytes # (Manual) Monocytes # (Manual) PT INR APTT D-Dimer POC ABG pH ABG pH POC ABG pCO2 POC ABG pO2 ABG pO2 ABG HCO3 ABG O2 Saturation ABG Base Excess ABG Hemoglobin VBG pH Oxyhemoglobin Sodium 153 H Potassium 3.0 L Chloride 118.9 H Carbon Dioxide 18 L BUN 37 H Creatinine Glucose 132 H POC Glucose 145 H Lactic Acid Calcium 7.1 L Phosphorus Magnesium Iron TIBC Direct Bilirubin AST ALT Alkaline Phosphatase Total Creatine Kinase CK-MB (CK-2) C-Reactive Protein Total Protein Albumin Vitamin B12 > 2000 H Salicylates Acetaminophen Miscellaneous Test Crossmatch 03/31/19 03/31/19 03/31/19 10:47 11:49 13:04 WBC RBC Hgb Hct MCV MCH MCHC RDW Plt Count [place] % (Auto) Lymph # Seg Neuts % (Manual) Lymphocytes % (Manual) Nucleated RBC % Seg Neutrophils # Man Lymphocytes # (Manual) Monocytes # (Manual) PT INR APTT D-Dimer POC ABG pH ABG pH POC ABG pCO2 POC ABG pO2 ABG pO2 ABG HCO3 ABG O2 Saturation ABG Base Excess ABG Hemoglobin VBG pH Oxyhemoglobin Sodium Potassium Chloride Carbon Dioxide BUN Creatinine Glucose POC Glucose 153 H 174 H 214 H Lactic Acid Calcium Phosphorus Magnesium Iron TIBC Direct Bilirubin AST ALT Alkaline Phosphatase Total Creatine Kinase CK-MB (CK-2) C-Reactive Protein Total Protein Albumin Vitamin B12 Salicylates Acetaminophen Miscellaneous Test Crossmatch 03/31/19 03/31/19 03/31/19 13:42 15:08 16:08 WBC RBC Hgb Hct MCV MCH MCHC RDW Plt Count [place] % (Auto) Lymph # Seg Neuts % (Manual) Lymphocytes % (Manual) Nucleated RBC % Seg Neutrophils # Man Lymphocytes # (Manual) Monocytes # (Manual) PT INR APTT D-Dimer POC ABG pH ABG pH POC ABG pCO2 POC ABG pO2 ABG pO2 ABG HCO3 ABG O2 Saturation ABG Base Excess ABG Hemoglobin VBG pH Oxyhemoglobin Sodium Potassium Chloride Carbon Dioxide BUN Creatinine Glucose POC Glucose 186 H 136 H 150 H Lactic Acid Calcium Phosphorus Magnesium Iron TIBC Direct Bilirubin AST ALT Alkaline Phosphatase Total Creatine Kinase CK-MB (CK-2) C-Reactive Protein Total Protein Albumin Vitamin B12 Salicylates Acetaminophen Miscellaneous Test Crossmatch 03/31/19 03/31/19 03/31/19 17:11 17:30 17:30 WBC RBC Hgb 7.7 L Hct 23.0 L MCV MCH MCHC RDW Plt Count [place] % (Auto) Lymph # Seg Neuts % (Manual) Lymphocytes % (Manual) Nucleated RBC % Seg Neutrophils # Man Lymphocytes # (Manual) Monocytes # (Manual) PT INR APTT D-Dimer POC ABG pH ABG pH POC ABG pCO2 POC ABG pO2 ABG pO2 ABG HCO3 ABG O2 Saturation ABG Base Excess ABG Hemoglobin VBG pH Oxyhemoglobin Sodium 153 H Potassium 3.5 L Chloride 119.3 H Carbon Dioxide 20 L BUN 34 H Creatinine Glucose 162 H POC Glucose 140 H Lactic Acid Calcium 7.6 L Phosphorus Magnesium Iron TIBC Direct Bilirubin AST ALT Alkaline Phosphatase Total Creatine Kinase CK-MB (CK-2) C-Reactive Protein Total Protein Albumin Vitamin B12 Salicylates Acetaminophen Miscellaneous Test Crossmatch 03/31/19 03/31/19 03/31/19 17:59 18:58 20:28 WBC RBC Hgb Hct MCV MCH MCHC RDW Plt Count [place] % (Auto) Lymph # Seg Neuts % (Manual) Lymphocytes % (Manual) Nucleated RBC % Seg Neutrophils # Man Lymphocytes # (Manual) Monocytes # (Manual) PT INR APTT D-Dimer POC ABG pH ABG pH POC ABG pCO2 POC ABG pO2 ABG pO2 ABG HCO3 ABG O2 Saturation ABG Base Excess ABG Hemoglobin VBG pH Oxyhemoglobin Sodium Potassium Chloride Carbon Dioxide BUN Creatinine Glucose POC Glucose 156 H 152 H 138 H Lactic Acid Calcium Phosphorus Magnesium Iron TIBC Direct Bilirubin AST ALT Alkaline Phosphatase Total Creatine Kinase CK-MB (CK-2) C-Reactive Protein Total Protein Albumin Vitamin B12 Salicylates Acetaminophen Miscellaneous Test Crossmatch 03/31/19 03/31/19 03/31/19 21:09 22:15 23:10 WBC RBC Hgb Hct MCV MCH MCHC RDW Plt Count [place] % (Auto) Lymph # Seg Neuts % (Manual) Lymphocytes % (Manual) Nucleated RBC % Seg Neutrophils # Man Lymphocytes # (Manual) Monocytes # (Manual) PT INR APTT D-Dimer POC ABG pH ABG pH POC ABG pCO2 POC ABG pO2 ABG pO2 ABG HCO3 ABG O2 Saturation ABG Base Excess ABG Hemoglobin VBG pH Oxyhemoglobin Sodium Potassium Chloride Carbon Dioxide BUN Creatinine Glucose POC Glucose 136 H 137 H 148 H Lactic Acid Calcium Phosphorus Magnesium Iron TIBC Direct Bilirubin AST ALT Alkaline Phosphatase Total Creatine Kinase CK-MB (CK-2) C-Reactive Protein Total Protein Albumin Vitamin B12 Salicylates Acetaminophen Miscellaneous Test Crossmatch 04/01/19 04/01/19 04/01/19 00:05 01:17 02:11 WBC RBC Hgb Hct MCV MCH MCHC RDW Plt Count [place] % (Auto) Lymph # Seg Neuts % (Manual) Lymphocytes % (Manual) Nucleated RBC % Seg Neutrophils # Man Lymphocytes # (Manual) Monocytes # (Manual) PT INR APTT D-Dimer POC ABG pH ABG pH POC ABG pCO2 POC ABG pO2 ABG pO2 ABG HCO3 ABG O2 Saturation ABG Base Excess ABG Hemoglobin VBG pH Oxyhemoglobin Sodium Potassium Chloride Carbon Dioxide BUN Creatinine Glucose POC Glucose 143 H 151 H 155 H Lactic Acid Calcium Phosphorus Magnesium Iron TIBC Direct Bilirubin AST ALT Alkaline Phosphatase Total Creatine Kinase CK-MB (CK-2) C-Reactive Protein Total Protein Albumin Vitamin B12 Salicylates Acetaminophen Miscellaneous Test Crossmatch 04/01/19 04/01/19 04/01/19 03:12 04:03 04:16 WBC RBC Hgb Hct MCV MCH MCHC RDW Plt Count [place] % (Auto) Lymph # Seg Neuts % (Manual) Lymphocytes % (Manual) Nucleated RBC % Seg Neutrophils # Man Lymphocytes # (Manual) Monocytes # (Manual) PT INR APTT D-Dimer POC ABG pH ABG pH POC ABG pCO2 POC ABG pO2 ABG pO2 ABG HCO3 ABG O2 Saturation ABG Base Excess ABG Hemoglobin VBG pH Oxyhemoglobin Sodium Potassium Chloride Carbon Dioxide BUN Creatinine Glucose POC Glucose 140 H 143 H 142 H Lactic Acid Calcium Phosphorus Magnesium Iron TIBC Direct Bilirubin AST ALT Alkaline Phosphatase Total Creatine Kinase CK-MB (CK-2) C-Reactive Protein Total Protein Albumin Vitamin B12 Salicylates Acetaminophen Miscellaneous Test Crossmatch 04/01/19 04/01/19 04/01/19 05:01 05:01 05:08 WBC RBC 2.05 L Hgb 6.8 L Hct 20.5 L MCV 100 H MCH 33 H MCHC RDW 17.7 H Plt Count 53 L [place] % (Auto) Lymph # Seg Neuts % (Manual) 71.0 H Lymphocytes % (Manual) Nucleated RBC % Seg Neutrophils # Man Lymphocytes # (Manual) Monocytes # (Manual) PT INR APTT D-Dimer POC ABG pH ABG pH POC ABG pCO2 POC ABG pO2 ABG pO2 ABG HCO3 ABG O2 Saturation ABG Base Excess ABG Hemoglobin VBG pH Oxyhemoglobin Sodium Potassium Chloride Carbon Dioxide BUN Creatinine Glucose POC Glucose 119 H Lactic Acid Calcium Phosphorus Magnesium Iron TIBC Direct Bilirubin 0.3 H AST 4601 H ALT 1542 H Alkaline Phosphatase 185 H Total Creatine Kinase CK-MB (CK-2) C-Reactive Protein Total Protein 3.8 L Albumin 1.6 L Vitamin B12 Salicylates Acetaminophen Miscellaneous Test Crossmatch 04/01/19 04/01/19 04/01/19 05:23 06:37 08:15 WBC RBC Hgb Hct MCV MCH MCHC RDW Plt Count [place] % (Auto) Lymph # Seg Neuts % (Manual) Lymphocytes % (Manual) Nucleated RBC % Seg Neutrophils # Man Lymphocytes # (Manual) Monocytes # (Manual) PT INR APTT D-Dimer POC ABG pH ABG pH POC ABG pCO2 POC ABG pO2 ABG pO2 ABG HCO3 ABG O2 Saturation ABG Base Excess ABG Hemoglobin VBG pH Oxyhemoglobin Sodium Potassium Chloride Carbon Dioxide BUN Creatinine Glucose POC Glucose 115 H 124 H 138 H Lactic Acid Calcium Phosphorus Magnesium Iron TIBC Direct Bilirubin AST ALT Alkaline Phosphatase Total Creatine Kinase CK-MB (CK-2) C-Reactive Protein Total Protein Albumin Vitamin B12 Salicylates Acetaminophen Miscellaneous Test Crossmatch 04/01/19 04/01/19 04/01/19 09:50 10:10 10:31 WBC RBC Hgb 6.5 L Hct 19.2 L* MCV MCH MCHC RDW Plt Count [place] % (Auto) Lymph # Seg Neuts % (Manual) Lymphocytes % (Manual) Nucleated RBC % Seg Neutrophils # Man Lymphocytes # (Manual) Monocytes # (Manual) PT INR APTT D-Dimer POC ABG pH ABG pH POC ABG pCO2 POC ABG pO2 ABG pO2 ABG HCO3 ABG O2 Saturation ABG Base Excess ABG Hemoglobin VBG pH Oxyhemoglobin Sodium 149 H Potassium 3.5 L Chloride 119.9 H Carbon Dioxide 21 L BUN 33 H Creatinine 0.5 L Glucose 142 H POC Glucose 185 H Lactic Acid Calcium 7.3 L Phosphorus Magnesium Iron TIBC Direct Bilirubin AST 3686 H ALT 1440 H Alkaline Phosphatase 185 H Total Creatine Kinase CK-MB (CK-2) C-Reactive Protein Total Protein 3.7 L Albumin 1.8 L Vitamin B12 Salicylates Acetaminophen Miscellaneous Test Crossmatch 04/01/19 04/01/19 04/01/19 11:35 13:05 14:35 WBC RBC Hgb Hct MCV MCH MCHC RDW Plt Count [place] % (Auto) Lymph # Seg Neuts % (Manual) Lymphocytes % (Manual) Nucleated RBC % Seg Neutrophils # Man Lymphocytes # (Manual) Monocytes # (Manual) PT INR APTT D-Dimer POC ABG pH ABG pH POC ABG pCO2 POC ABG pO2 ABG pO2 ABG HCO3 ABG O2 Saturation ABG Base Excess ABG Hemoglobin VBG pH Oxyhemoglobin Sodium Potassium Chloride Carbon Dioxide BUN Creatinine Glucose POC Glucose 201 H 169 H 134 H Lactic Acid Calcium Phosphorus Magnesium Iron TIBC Direct Bilirubin AST ALT Alkaline Phosphatase Total Creatine Kinase CK-MB (CK-2) C-Reactive Protein Total Protein Albumin Vitamin B12 Salicylates Acetaminophen Miscellaneous Test Crossmatch 04/01/19 04/01/19 04/01/19 17:13 17:14 18:30 WBC RBC Hgb Hct MCV MCH MCHC RDW Plt Count [place] % (Auto) Lymph # Seg Neuts % (Manual) Lymphocytes % (Manual) Nucleated RBC % Seg Neutrophils # Man Lymphocytes # (Manual) Monocytes # (Manual) PT INR APTT D-Dimer 5203.68 H POC ABG pH ABG pH POC ABG pCO2 POC ABG pO2 ABG pO2 ABG HCO3 ABG O2 Saturation ABG Base Excess ABG Hemoglobin VBG pH Oxyhemoglobin Sodium Potassium Chloride Carbon Dioxide BUN Creatinine Glucose POC Glucose 69 L 128 H Lactic Acid Calcium Phosphorus Magnesium Iron TIBC Direct Bilirubin AST ALT Alkaline Phosphatase Total Creatine Kinase CK-MB (CK-2) C-Reactive Protein Total Protein Albumin Vitamin B12 Salicylates Acetaminophen Miscellaneous Test Crossmatch 04/01/19 04/01/19 04/02/19 22:50 Unknown 03:40 WBC RBC Hgb Hct MCV MCH MCHC RDW Plt Count [place] % (Auto) Lymph # Seg Neuts % (Manual) Lymphocytes % (Manual) Nucleated RBC % Seg Neutrophils # Man Lymphocytes # (Manual) Monocytes # (Manual) PT INR APTT D-Dimer POC ABG pH ABG pH POC ABG pCO2 POC ABG pO2 ABG pO2 78.3 L 142.8 H ABG HCO3 15.5 L ABG O2 Saturation ABG Base Excess -3.5 L -8.2 L ABG Hemoglobin 6.8 L 8.2 L VBG pH Oxyhemoglobin 94.3 L Sodium Potassium Chloride Carbon Dioxide BUN Creatinine Glucose POC Glucose 342 H Lactic Acid Calcium Phosphorus Magnesium Iron TIBC Direct Bilirubin AST ALT Alkaline Phosphatase Total Creatine Kinase CK-MB (CK-2) C-Reactive Protein Total Protein Albumin Vitamin B12 Salicylates Acetaminophen Miscellaneous Test Crossmatch 04/02/19 04/02/19 04/02/19 03:49 06:50 07:48 WBC RBC 2.65 L Hgb 8.6 L Hct 25.1 L MCV MCH MCHC RDW 17.6 H Plt Count 48 L [place] % (Auto) Lymph # Seg Neuts % (Manual) Lymphocytes % (Manual) Nucleated RBC % Seg Neutrophils # Man Lymphocytes # (Manual) Monocytes # (Manual) PT INR APTT D-Dimer POC ABG pH ABG pH POC ABG pCO2 POC ABG pO2 ABG pO2 ABG HCO3 ABG O2 Saturation ABG Base Excess ABG Hemoglobin VBG pH Oxyhemoglobin Sodium Potassium Chloride Carbon Dioxide BUN Creatinine Glucose POC Glucose 247 H 200 H Lactic Acid Calcium Phosphorus Magnesium Iron TIBC Direct Bilirubin AST ALT Alkaline Phosphatase Total Creatine Kinase CK-MB (CK-2) C-Reactive Protein Total Protein Albumin Vitamin B12 Salicylates Acetaminophen Miscellaneous Test Crossmatch 04/02/19 04/02/19 04/02/19 07:48 11:18 14:07 WBC RBC Hgb Hct MCV MCH MCHC RDW Plt Count [place] % (Auto) Lymph # Seg Neuts % (Manual) Lymphocytes % (Manual) Nucleated RBC % Seg Neutrophils # Man Lymphocytes # (Manual) Monocytes # (Manual) PT INR APTT D-Dimer POC ABG pH ABG pH POC ABG pCO2 POC ABG pO2 ABG pO2 ABG HCO3 ABG O2 Saturation ABG Base Excess ABG Hemoglobin VBG pH Oxyhemoglobin Sodium Potassium 3.5 L Chloride 115.7 H Carbon Dioxide 19 L BUN 29 H Creatinine 0.5 L Glucose 159 H POC Glucose 154 H 149 H Lactic Acid Calcium 7.5 L Phosphorus Magnesium Iron TIBC Direct Bilirubin AST 1418 H ALT 1134 H Alkaline Phosphatase 242 H Total Creatine Kinase CK-MB (CK-2) C-Reactive Protein Total Protein 4.2 L Albumin 2.1 L Vitamin B12 Salicylates Acetaminophen Miscellaneous Test Crossmatch 04/02/19 04/02/19 04/02/19 18:09 19:46 23:05 WBC RBC Hgb Hct MCV MCH MCHC RDW Plt Count [place] % (Auto) Lymph # Seg Neuts % (Manual) Lymphocytes % (Manual) Nucleated RBC % Seg Neutrophils # Man Lymphocytes # (Manual) Monocytes # (Manual) PT INR APTT D-Dimer POC ABG pH ABG pH POC ABG pCO2 POC ABG pO2 ABG pO2 ABG HCO3 ABG O2 Saturation ABG Base Excess ABG Hemoglobin VBG pH Oxyhemoglobin Sodium Potassium Chloride Carbon Dioxide BUN Creatinine Glucose POC Glucose 188 H 209 H 247 H Lactic Acid Calcium Phosphorus Magnesium Iron TIBC Direct Bilirubin AST ALT Alkaline Phosphatase Total Creatine Kinase CK-MB (CK-2) C-Reactive Protein Total Protein Albumin Vitamin B12 Salicylates Acetaminophen Miscellaneous Test Crossmatch 04/03/19 04/03/19 04/03/19 02:58 03:40 03:40 WBC RBC 2.87 L Hgb 9.3 L Hct 27.0 L MCV MCH MCHC RDW 17.2 H Plt Count 65 L [place] % (Auto) 9.8 H Lymph # 1.1 L Seg Neuts % (Manual) Lymphocytes % (Manual) Nucleated RBC % Seg Neutrophils # Man Lymphocytes # (Manual) Monocytes # (Manual) PT INR APTT D-Dimer POC ABG pH ABG pH POC ABG pCO2 POC ABG pO2 ABG pO2 ABG HCO3 ABG O2 Saturation ABG Base Excess ABG Hemoglobin VBG pH Oxyhemoglobin Sodium 147 H Potassium 3.5 L Chloride 116.7 H Carbon Dioxide 18 L BUN Creatinine 0.4 L Glucose 150 H POC Glucose 166 H Lactic Acid Calcium 8.1 L Phosphorus 2.20 L Magnesium Iron TIBC Direct Bilirubin AST 594 H ALT 861 H Alkaline Phosphatase 299 H Total Creatine Kinase CK-MB (CK-2) C-Reactive Protein Total Protein 4.4 L Albumin 2.1 L Vitamin B12 Salicylates Acetaminophen Miscellaneous Test Crossmatch 04/03/19 04/03/19 04/03/19 05:35 07:02 08:23 WBC RBC Hgb Hct MCV MCH MCHC RDW Plt Count [place] % (Auto) Lymph # Seg Neuts % (Manual) Lymphocytes % (Manual) Nucleated RBC % Seg Neutrophils # Man Lymphocytes # (Manual) Monocytes # (Manual) PT INR APTT D-Dimer POC ABG pH ABG pH POC ABG pCO2 POC ABG pO2 ABG pO2 97.7 H ABG HCO3 19.3 L ABG O2 Saturation ABG Base Excess -5.0 L ABG Hemoglobin 8.0 L VBG pH Oxyhemoglobin Sodium Potassium Chloride Carbon Dioxide BUN Creatinine Glucose POC Glucose 135 H 132 H Lactic Acid Calcium Phosphorus Magnesium Iron TIBC Direct Bilirubin AST ALT Alkaline Phosphatase Total Creatine Kinase CK-MB (CK-2) C-Reactive Protein Total Protein Albumin Vitamin B12 Salicylates Acetaminophen Miscellaneous Test Crossmatch 04/03/19 04/03/19 04/03/19 11:58 15:11 17:53 WBC RBC Hgb Hct MCV MCH MCHC RDW Plt Count [place] % (Auto) Lymph # Seg Neuts % (Manual) Lymphocytes % (Manual) Nucleated RBC % Seg Neutrophils # Man Lymphocytes # (Manual) Monocytes # (Manual) PT INR APTT D-Dimer POC ABG pH ABG pH POC ABG pCO2 POC ABG pO2 ABG pO2 ABG HCO3 ABG O2 Saturation ABG Base Excess ABG Hemoglobin VBG pH Oxyhemoglobin Sodium Potassium Chloride Carbon Dioxide BUN Creatinine Glucose POC Glucose 179 H 213 H 223 H Lactic Acid Calcium Phosphorus Magnesium Iron TIBC Direct Bilirubin AST ALT Alkaline Phosphatase Total Creatine Kinase CK-MB (CK-2) C-Reactive Protein Total Protein Albumin Vitamin B12 Salicylates Acetaminophen Miscellaneous Test Crossmatch 04/03/19 04/04/19 04/04/19 23:06 02:36 06:41 WBC RBC Hgb Hct MCV MCH MCHC RDW Plt Count [place] % (Auto) Lymph # Seg Neuts % (Manual) Lymphocytes % (Manual) Nucleated RBC % Seg Neutrophils # Man Lymphocytes # (Manual) Monocytes # (Manual) PT INR APTT D-Dimer POC ABG pH ABG pH POC ABG pCO2 POC ABG pO2 ABG pO2 ABG HCO3 ABG O2 Saturation ABG Base Excess ABG Hemoglobin VBG pH Oxyhemoglobin Sodium Potassium Chloride Carbon Dioxide BUN Creatinine Glucose POC Glucose 189 H 157 H 131 H Lactic Acid Calcium Phosphorus Magnesium Iron TIBC Direct Bilirubin AST ALT Alkaline Phosphatase Total Creatine Kinase CK-MB (CK-2) C-Reactive Protein Total Protein Albumin Vitamin B12 Salicylates Acetaminophen Miscellaneous Test Crossmatch 04/04/19 04/04/19 04/04/19 11:42 15:45 18:21 WBC RBC Hgb Hct MCV MCH MCHC RDW Plt Count [place] % (Auto) Lymph # Seg Neuts % (Manual) Lymphocytes % (Manual) Nucleated RBC % Seg Neutrophils # Man Lymphocytes # (Manual) Monocytes # (Manual) PT INR APTT D-Dimer POC ABG pH ABG pH POC ABG pCO2 POC ABG pO2 ABG pO2 ABG HCO3 ABG O2 Saturation ABG Base Excess ABG Hemoglobin VBG pH Oxyhemoglobin Sodium Potassium Chloride Carbon Dioxide BUN Creatinine Glucose POC Glucose 233 H 236 H 255 H Lactic Acid Calcium Phosphorus Magnesium Iron TIBC Direct Bilirubin AST ALT Alkaline Phosphatase Total Creatine Kinase CK-MB (CK-2) C-Reactive Protein Total Protein Albumin Vitamin B12 Salicylates Acetaminophen Miscellaneous Test Crossmatch 04/04/19 04/05/19 04/05/19 21:21 03:06 06:05 WBC RBC 2.68 L Hgb 8.5 L Hct 26.3 L MCV 98 H MCH MCHC RDW 17.4 H Plt Count [place] % (Auto) Lymph # Seg Neuts % (Manual) Lymphocytes % (Manual) Nucleated RBC % Seg Neutrophils # Man Lymphocytes # (Manual) Monocytes # (Manual) PT INR APTT D-Dimer POC ABG pH ABG pH POC ABG pCO2 POC ABG pO2 ABG pO2 ABG HCO3 ABG O2 Saturation ABG Base Excess ABG Hemoglobin VBG pH Oxyhemoglobin Sodium Potassium Chloride Carbon Dioxide BUN Creatinine Glucose POC Glucose 132 H 161 H Lactic Acid Calcium Phosphorus Magnesium Iron TIBC Direct Bilirubin AST ALT Alkaline Phosphatase Total Creatine Kinase CK-MB (CK-2) C-Reactive Protein Total Protein Albumin Vitamin B12 Salicylates Acetaminophen Miscellaneous Test Crossmatch 04/05/19 04/05/19 04/05/19 06:05 06:49 10:23 WBC RBC Hgb Hct MCV MCH MCHC RDW Plt Count [place] % (Auto) Lymph # Seg Neuts % (Manual) Lymphocytes % (Manual) Nucleated RBC % Seg Neutrophils # Man Lymphocytes # (Manual) Monocytes # (Manual) PT INR APTT D-Dimer POC ABG pH ABG pH POC ABG pCO2 POC ABG pO2 ABG pO2 ABG HCO3 ABG O2 Saturation ABG Base Excess ABG Hemoglobin VBG pH Oxyhemoglobin Sodium Potassium Chloride 112.5 H Carbon Dioxide BUN Creatinine 0.2 L Glucose 237 H POC Glucose 283 H 296 H Lactic Acid Calcium 7.9 L Phosphorus Magnesium Iron TIBC Direct Bilirubin AST ALT Alkaline Phosphatase Total Creatine Kinase CK-MB (CK-2) C-Reactive Protein Total Protein Albumin Vitamin B12 Salicylates Acetaminophen Miscellaneous Test Crossmatch 04/05/19 04/05/19 04/05/19 14:46 18:19 20:35 WBC RBC Hgb Hct MCV MCH MCHC RDW Plt Count [place] % (Auto) Lymph # Seg Neuts % (Manual) Lymphocytes % (Manual) Nucleated RBC % Seg Neutrophils # Man Lymphocytes # (Manual) Monocytes # (Manual) PT INR APTT D-Dimer POC ABG pH ABG pH POC ABG pCO2 POC ABG pO2 ABG pO2 ABG HCO3 ABG O2 Saturation ABG Base Excess ABG Hemoglobin VBG pH Oxyhemoglobin Sodium Potassium Chloride Carbon Dioxide BUN Creatinine Glucose POC Glucose 225 H 259 H 236 H Lactic Acid Calcium Phosphorus Magnesium Iron TIBC Direct Bilirubin AST ALT Alkaline Phosphatase Total Creatine Kinase CK-MB (CK-2) C-Reactive Protein Total Protein Albumin Vitamin B12 Salicylates Acetaminophen Miscellaneous Test Crossmatch 04/05/19 04/06/19 04/06/19 23:11 00:06 03:14 WBC RBC Hgb Hct MCV MCH MCHC RDW Plt Count [place] % (Auto) Lymph # Seg Neuts % (Manual) Lymphocytes % (Manual) Nucleated RBC % Seg Neutrophils # Man Lymphocytes # (Manual) Monocytes # (Manual) PT INR APTT D-Dimer 4526.86 H POC ABG pH ABG pH POC ABG pCO2 POC ABG pO2 ABG pO2 ABG HCO3 ABG O2 Saturation ABG Base Excess ABG Hemoglobin VBG pH Oxyhemoglobin Sodium Potassium Chloride Carbon Dioxide BUN Creatinine Glucose POC Glucose 205 H 228 H Lactic Acid Calcium Phosphorus Magnesium Iron TIBC Direct Bilirubin AST ALT Alkaline Phosphatase Total Creatine Kinase CK-MB (CK-2) C-Reactive Protein Total Protein Albumin Vitamin B12 Salicylates Acetaminophen Miscellaneous Test Crossmatch 04/06/19 04/06/19 04/06/19 05:20 05:20 07:57 WBC 15.1 H RBC 2.90 L Hgb 9.1 L Hct 28.0 L MCV MCH MCHC RDW 17.3 H Plt Count [place] % (Auto) Lymph # Seg Neuts % (Manual) Lymphocytes % (Manual) Nucleated RBC % Seg Neutrophils # Man Lymphocytes # (Manual) Monocytes # (Manual) PT INR APTT D-Dimer POC ABG pH ABG pH POC ABG pCO2 POC ABG pO2 ABG pO2 ABG HCO3 ABG O2 Saturation ABG Base Excess ABG Hemoglobin VBG pH Oxyhemoglobin Sodium Potassium Chloride Carbon Dioxide BUN Creatinine 0.2 L Glucose 161 H POC Glucose 191 H Lactic Acid Calcium 8.0 L Phosphorus Magnesium Iron TIBC Direct Bilirubin AST ALT Alkaline Phosphatase Total Creatine Kinase CK-MB (CK-2) C-Reactive Protein Total Protein Albumin Vitamin B12 Salicylates Acetaminophen Miscellaneous Test Crossmatch 04/06/19 04/06/19 04/06/19 12:09 18:24 22:07 WBC RBC Hgb Hct MCV MCH MCHC RDW Plt Count [place] % (Auto) Lymph # Seg Neuts % (Manual) Lymphocytes % (Manual) Nucleated RBC % Seg Neutrophils # Man Lymphocytes # (Manual) Monocytes # (Manual) PT INR APTT D-Dimer POC ABG pH ABG pH POC ABG pCO2 POC ABG pO2 ABG pO2 ABG HCO3 ABG O2 Saturation ABG Base Excess ABG Hemoglobin VBG pH Oxyhemoglobin Sodium Potassium Chloride Carbon Dioxide BUN Creatinine Glucose POC Glucose 143 H 161 H 140 H Lactic Acid Calcium Phosphorus Magnesium Iron TIBC Direct Bilirubin AST ALT Alkaline Phosphatase Total Creatine Kinase CK-MB (CK-2) C-Reactive Protein Total Protein Albumin Vitamin B12 Salicylates Acetaminophen Miscellaneous Test Crossmatch 04/07/19 04/07/19 04/07/19 03:00 04:30 04:30 WBC 13.0 H RBC 2.65 L Hgb 8.3 L Hct 25.5 L MCV MCH MCHC RDW 17.0 H Plt Count [place] % (Auto) Lymph # Seg Neuts % (Manual) Lymphocytes % (Manual) Nucleated RBC % Seg Neutrophils # Man Lymphocytes # (Manual) Monocytes # (Manual) PT INR APTT D-Dimer POC ABG pH ABG pH POC ABG pCO2 POC ABG pO2 ABG pO2 ABG HCO3 ABG O2 Saturation ABG Base Excess ABG Hemoglobin VBG pH Oxyhemoglobin Sodium Potassium Chloride Carbon Dioxide BUN Creatinine 0.2 L Glucose 208 H POC Glucose 224 H Lactic Acid Calcium 7.7 L Phosphorus Magnesium Iron TIBC Direct Bilirubin AST ALT Alkaline Phosphatase Total Creatine Kinase CK-MB (CK-2) C-Reactive Protein Total Protein Albumin Vitamin B12 Salicylates Acetaminophen Miscellaneous Test Crossmatch 04/07/19 04/07/19 04/07/19 05:47 08:27 10:33 WBC RBC Hgb Hct MCV MCH MCHC RDW Plt Count [place] % (Auto) Lymph # Seg Neuts % (Manual) Lymphocytes % (Manual) Nucleated RBC % Seg Neutrophils # Man Lymphocytes # (Manual) Monocytes # (Manual) PT INR APTT D-Dimer POC ABG pH ABG pH POC ABG pCO2 POC ABG pO2 ABG pO2 ABG HCO3 ABG O2 Saturation ABG Base Excess ABG Hemoglobin VBG pH Oxyhemoglobin Sodium Potassium Chloride Carbon Dioxide BUN Creatinine Glucose POC Glucose 225 H 176 H 207 H Lactic Acid Calcium Phosphorus Magnesium Iron TIBC Direct Bilirubin AST ALT Alkaline Phosphatase Total Creatine Kinase CK-MB (CK-2) C-Reactive Protein Total Protein Albumin Vitamin B12 Salicylates Acetaminophen Miscellaneous Test Crossmatch 04/07/19 04/07/19 04/07/19 14:13 18:32 22:42 WBC RBC Hgb Hct MCV MCH MCHC RDW Plt Count [place] % (Auto) Lymph # Seg Neuts % (Manual) Lymphocytes % (Manual) Nucleated RBC % Seg Neutrophils # Man Lymphocytes # (Manual) Monocytes # (Manual) PT INR APTT D-Dimer POC ABG pH ABG pH POC ABG pCO2 POC ABG pO2 ABG pO2 ABG HCO3 ABG O2 Saturation ABG Base Excess ABG Hemoglobin VBG pH Oxyhemoglobin Sodium Potassium Chloride Carbon Dioxide BUN Creatinine Glucose POC Glucose 219 H 227 H 238 H Lactic Acid Calcium Phosphorus Magnesium Iron TIBC Direct Bilirubin AST ALT Alkaline Phosphatase Total Creatine Kinase CK-MB (CK-2) C-Reactive Protein Total Protein Albumin Vitamin B12 Salicylates Acetaminophen Miscellaneous Test Crossmatch 04/08/19 04/08/19 04/08/19 02:31 05:37 14:10 WBC RBC Hgb Hct MCV MCH MCHC RDW Plt Count [place] % (Auto) Lymph # Seg Neuts % (Manual) Lymphocytes % (Manual) Nucleated RBC % Seg Neutrophils # Man Lymphocytes # (Manual) Monocytes # (Manual) PT INR APTT D-Dimer POC ABG pH ABG pH POC ABG pCO2 POC ABG pO2 ABG pO2 ABG HCO3 ABG O2 Saturation ABG Base Excess ABG Hemoglobin VBG pH Oxyhemoglobin Sodium Potassium Chloride Carbon Dioxide BUN Creatinine Glucose POC Glucose 194 H 194 H 139 H Lactic Acid Calcium Phosphorus Magnesium Iron TIBC Direct Bilirubin AST ALT Alkaline Phosphatase Total Creatine Kinase CK-MB (CK-2) C-Reactive Protein Total Protein Albumin Vitamin B12 Salicylates Acetaminophen Miscellaneous Test Crossmatch 04/08/19 04/08/19 04/09/19 17:43 23:20 03:28 WBC RBC Hgb Hct MCV MCH MCHC RDW Plt Count [place] % (Auto) Lymph # Seg Neuts % (Manual) Lymphocytes % (Manual) Nucleated RBC % Seg Neutrophils # Man Lymphocytes # (Manual) Monocytes # (Manual) PT INR APTT D-Dimer POC ABG pH ABG pH POC ABG pCO2 POC ABG pO2 ABG pO2 ABG HCO3 ABG O2 Saturation ABG Base Excess ABG Hemoglobin VBG pH Oxyhemoglobin Sodium Potassium Chloride Carbon Dioxide BUN Creatinine Glucose POC Glucose 261 H 277 H 301 H Lactic Acid Calcium Phosphorus Magnesium Iron TIBC Direct Bilirubin AST ALT Alkaline Phosphatase Total Creatine Kinase CK-MB (CK-2) C-Reactive Protein Total Protein Albumin Vitamin B12 Salicylates Acetaminophen Miscellaneous Test Crossmatch 04/09/19 04/09/19 04/09/19 05:35 05:35 05:35 WBC RBC 2.78 L Hgb 9.0 L Hct 26.7 L MCV MCH MCHC RDW 17.0 H Plt Count [place] % (Auto) Lymph # Seg Neuts % (Manual) Lymphocytes % (Manual) Nucleated RBC % Seg Neutrophils # Man Lymphocytes # (Manual) Monocytes # (Manual) PT INR APTT D-Dimer POC ABG pH ABG pH POC ABG pCO2 POC ABG pO2 ABG pO2 ABG HCO3 ABG O2 Saturation ABG Base Excess ABG Hemoglobin VBG pH Oxyhemoglobin Sodium Potassium Chloride Carbon Dioxide 31 H BUN Creatinine 0.2 L Glucose 218 H POC Glucose 240 H Lactic Acid Calcium Phosphorus Magnesium Iron TIBC Direct Bilirubin AST ALT Alkaline Phosphatase Total Creatine Kinase CK-MB (CK-2) C-Reactive Protein Total Protein Albumin Vitamin B12 Salicylates Acetaminophen Miscellaneous Test Crossmatch 04/09/19 04/09/19 04/09/19 09:01 12:23 17:33 WBC RBC Hgb Hct MCV MCH MCHC RDW Plt Count [place] % (Auto) Lymph # Seg Neuts % (Manual) Lymphocytes % (Manual) Nucleated RBC % Seg Neutrophils # Man Lymphocytes # (Manual) Monocytes # (Manual) PT INR APTT D-Dimer POC ABG pH ABG pH POC ABG pCO2 POC ABG pO2 ABG pO2 ABG HCO3 ABG O2 Saturation ABG Base Excess ABG Hemoglobin VBG pH Oxyhemoglobin Sodium Potassium Chloride Carbon Dioxide BUN Creatinine Glucose POC Glucose 160 H 162 H 149 H Lactic Acid Calcium Phosphorus Magnesium Iron TIBC Direct Bilirubin AST ALT Alkaline Phosphatase Total Creatine Kinase CK-MB (CK-2) C-Reactive Protein Total Protein Albumin Vitamin B12 Salicylates Acetaminophen Miscellaneous Test Crossmatch 04/09/19 04/09/19 04/10/19 21:26 22:28 03:16 WBC RBC Hgb Hct MCV MCH MCHC RDW Plt Count [place] % (Auto) Lymph # Seg Neuts % (Manual) Lymphocytes % (Manual) Nucleated RBC % Seg Neutrophils # Man Lymphocytes # (Manual) Monocytes # (Manual) PT INR APTT D-Dimer POC ABG pH ABG pH POC ABG pCO2 POC ABG pO2 ABG pO2 ABG HCO3 ABG O2 Saturation ABG Base Excess ABG Hemoglobin VBG pH Oxyhemoglobin Sodium Potassium Chloride Carbon Dioxide BUN Creatinine Glucose POC Glucose 196 H 224 H 163 H Lactic Acid Calcium Phosphorus Magnesium Iron TIBC Direct Bilirubin AST ALT Alkaline Phosphatase Total Creatine Kinase CK-MB (CK-2) C-Reactive Protein Total Protein Albumin Vitamin B12 Salicylates Acetaminophen Miscellaneous Test Crossmatch 04/10/19 04/10/19 04/10/19 04:15 04:15 05:30 WBC RBC 2.88 L Hgb 9.2 L Hct 27.9 L MCV MCH MCHC RDW 17.0 H Plt Count 454 H [place] % (Auto) Lymph # Seg Neuts % (Manual) Lymphocytes % (Manual) Nucleated RBC % Seg Neutrophils # Man Lymphocytes # (Manual) Monocytes # (Manual) PT INR APTT D-Dimer POC ABG pH ABG pH POC ABG pCO2 POC ABG pO2 ABG pO2 ABG HCO3 ABG O2 Saturation ABG Base Excess ABG Hemoglobin VBG pH Oxyhemoglobin Sodium Potassium Chloride Carbon Dioxide 32 H BUN Creatinine 0.2 L Glucose 126 H POC Glucose 135 H Lactic Acid Calcium Phosphorus Magnesium Iron TIBC Direct Bilirubin AST ALT Alkaline Phosphatase Total Creatine Kinase CK-MB (CK-2) C-Reactive Protein Total Protein Albumin Vitamin B12 Salicylates Acetaminophen Miscellaneous Test Crossmatch 04/10/19 04/10/19 04/10/19 12:14 15:29 23:38 WBC RBC Hgb Hct MCV MCH MCHC RDW Plt Count [place] % (Auto) Lymph # Seg Neuts % (Manual) Lymphocytes % (Manual) Nucleated RBC % Seg Neutrophils # Man Lymphocytes # (Manual) Monocytes # (Manual) PT INR APTT D-Dimer POC ABG pH ABG pH POC ABG pCO2 POC ABG pO2 ABG pO2 ABG HCO3 ABG O2 Saturation ABG Base Excess ABG Hemoglobin VBG pH Oxyhemoglobin Sodium Potassium Chloride Carbon Dioxide BUN Creatinine Glucose POC Glucose 109 H 149 H 268 H Lactic Acid Calcium Phosphorus Magnesium Iron TIBC Direct Bilirubin AST ALT Alkaline Phosphatase Total Creatine Kinase CK-MB (CK-2) C-Reactive Protein Total Protein Albumin Vitamin B12 Salicylates Acetaminophen Miscellaneous Test Crossmatch 04/11/19 04/11/19 04/11/19 05:27 12:08 18:08 WBC RBC Hgb Hct MCV MCH MCHC RDW Plt Count [place] % (Auto) Lymph # Seg Neuts % (Manual) Lymphocytes % (Manual) Nucleated RBC % Seg Neutrophils # Man Lymphocytes # (Manual) Monocytes # (Manual) PT INR APTT D-Dimer POC ABG pH ABG pH POC ABG pCO2 POC ABG pO2 ABG pO2 ABG HCO3 ABG O2 Saturation ABG Base Excess ABG Hemoglobin VBG pH Oxyhemoglobin Sodium Potassium Chloride Carbon Dioxide BUN Creatinine Glucose POC Glucose 109 H 185 H 190 H Lactic Acid Calcium Phosphorus Magnesium Iron TIBC Direct Bilirubin AST ALT Alkaline Phosphatase Total Creatine Kinase CK-MB (CK-2) C-Reactive Protein Total Protein Albumin Vitamin B12 Salicylates Acetaminophen Miscellaneous Test Crossmatch 04/11/19 04/12/19 04/12/19 23:23 06:00 11:42 WBC RBC Hgb Hct MCV MCH MCHC RDW Plt Count [place] % (Auto) Lymph # Seg Neuts % (Manual) Lymphocytes % (Manual) Nucleated RBC % Seg Neutrophils # Man Lymphocytes # (Manual) Monocytes # (Manual) PT INR APTT D-Dimer POC ABG pH ABG pH POC ABG pCO2 POC ABG pO2 ABG pO2 ABG HCO3 ABG O2 Saturation ABG Base Excess ABG Hemoglobin VBG pH Oxyhemoglobin Sodium Potassium Chloride Carbon Dioxide BUN Creatinine Glucose POC Glucose 127 H 201 H 161 H Lactic Acid Calcium Phosphorus Magnesium Iron TIBC Direct Bilirubin AST ALT Alkaline Phosphatase Total Creatine Kinase CK-MB (CK-2) C-Reactive Protein Total Protein Albumin Vitamin B12 Salicylates Acetaminophen Miscellaneous Test Crossmatch 04/12/19 04/12/19 04/12/19 17:56 20:07 21:59 WBC RBC Hgb Hct MCV MCH MCHC RDW Plt Count [place] % (Auto) Lymph # Seg Neuts % (Manual) Lymphocytes % (Manual) Nucleated RBC % Seg Neutrophils # Man Lymphocytes # (Manual) Monocytes # (Manual) PT INR APTT D-Dimer POC ABG pH ABG pH POC ABG pCO2 POC ABG pO2 ABG pO2 ABG HCO3 ABG O2 Saturation ABG Base Excess ABG Hemoglobin VBG pH Oxyhemoglobin Sodium Potassium Chloride Carbon Dioxide BUN Creatinine Glucose POC Glucose 145 H 158 H 203 H Lactic Acid Calcium Phosphorus Magnesium Iron TIBC Direct Bilirubin AST ALT Alkaline Phosphatase Total Creatine Kinase CK-MB (CK-2) C-Reactive Protein Total Protein Albumin Vitamin B12 Salicylates Acetaminophen Miscellaneous Test Crossmatch 04/12/19 04/13/19 04/13/19 23:37 08:50 08:50 WBC 15.7 H RBC 3.12 L Hgb Hct 30.2 L MCV MCH 33 H MCHC RDW 18.0 H Plt Count 678 H [place] % (Auto) Lymph # Seg Neuts % (Manual) Lymphocytes % (Manual) Nucleated RBC % Seg Neutrophils # Man Lymphocytes # (Manual) Monocytes # (Manual) PT INR APTT D-Dimer POC ABG pH ABG pH POC ABG pCO2 POC ABG pO2 ABG pO2 ABG HCO3 ABG O2 Saturation ABG Base Excess ABG Hemoglobin VBG pH Oxyhemoglobin Sodium Potassium Chloride Carbon Dioxide BUN Creatinine < 0.2 L Glucose 46 L POC Glucose 238 H Lactic Acid Calcium Phosphorus Magnesium Iron TIBC Direct Bilirubin AST ALT Alkaline Phosphatase Total Creatine Kinase CK-MB (CK-2) C-Reactive Protein Total Protein Albumin Vitamin B12 Salicylates Acetaminophen Miscellaneous Test Crossmatch 04/13/19 04/13/19 04/13/19 11:56 17:27 23:57 WBC RBC Hgb Hct MCV MCH MCHC RDW Plt Count [place] % (Auto) Lymph # Seg Neuts % (Manual) Lymphocytes % (Manual) Nucleated RBC % Seg Neutrophils # Man Lymphocytes # (Manual) Monocytes # (Manual) PT INR APTT D-Dimer POC ABG pH ABG pH POC ABG pCO2 POC ABG pO2 ABG pO2 ABG HCO3 ABG O2 Saturation ABG Base Excess ABG Hemoglobin VBG pH Oxyhemoglobin Sodium Potassium Chloride Carbon Dioxide BUN Creatinine Glucose POC Glucose 40 L 66 L 65 L Lactic Acid Calcium Phosphorus Magnesium Iron TIBC Direct Bilirubin AST ALT Alkaline Phosphatase Total Creatine Kinase CK-MB (CK-2) C-Reactive Protein Total Protein Albumin Vitamin B12 Salicylates Acetaminophen Miscellaneous Test Crossmatch 04/14/19 04/14/19 04/14/19 05:28 08:20 08:20 WBC 17.8 H RBC 3.26 L Hgb Hct MCV 98 H MCH MCHC RDW 18.3 H Plt Count 622 H [place] % (Auto) Lymph # Seg Neuts % (Manual) Lymphocytes % (Manual) Nucleated RBC % Seg Neutrophils # Man Lymphocytes # (Manual) Monocytes # (Manual) PT INR APTT D-Dimer POC ABG pH ABG pH POC ABG pCO2 POC ABG pO2 ABG pO2 ABG HCO3 ABG O2 Saturation ABG Base Excess ABG Hemoglobin VBG pH Oxyhemoglobin Sodium Potassium Chloride Carbon Dioxide BUN 6 L Creatinine < 0.2 L Glucose 154 H POC Glucose 149 H Lactic Acid Calcium Phosphorus Magnesium Iron TIBC Direct Bilirubin AST ALT Alkaline Phosphatase Total Creatine Kinase CK-MB (CK-2) C-Reactive Protein Total Protein Albumin Vitamin B12 Salicylates Acetaminophen Miscellaneous Test Crossmatch 04/14/19 04/14/19 04/14/19 12:16 17:54 23:35 WBC RBC Hgb Hct MCV MCH MCHC RDW Plt Count [place] % (Auto) Lymph # Seg Neuts % (Manual) Lymphocytes % (Manual) Nucleated RBC % Seg Neutrophils # Man Lymphocytes # (Manual) Monocytes # (Manual) PT INR APTT D-Dimer POC ABG pH ABG pH POC ABG pCO2 POC ABG pO2 ABG pO2 ABG HCO3 ABG O2 Saturation ABG Base Excess ABG Hemoglobin VBG pH Oxyhemoglobin Sodium Potassium Chloride Carbon Dioxide BUN Creatinine Glucose POC Glucose 176 H 224 H 173 H Lactic Acid Calcium Phosphorus Magnesium Iron TIBC Direct Bilirubin AST ALT Alkaline Phosphatase Total Creatine Kinase CK-MB (CK-2) C-Reactive Protein Total Protein Albumin Vitamin B12 Salicylates Acetaminophen Miscellaneous Test Crossmatch 04/15/19 04/15/19 04/15/19 05:44 12:44 18:06 WBC RBC Hgb Hct MCV MCH MCHC RDW Plt Count [place] % (Auto) Lymph # Seg Neuts % (Manual) Lymphocytes % (Manual) Nucleated RBC % Seg Neutrophils # Man Lymphocytes # (Manual) Monocytes # (Manual) PT INR APTT D-Dimer POC ABG pH 7.461 H ABG pH POC ABG pCO2 45.5 H POC ABG pO2 ABG pO2 ABG HCO3 ABG O2 Saturation ABG Base Excess ABG Hemoglobin VBG pH Oxyhemoglobin Sodium Potassium Chloride Carbon Dioxide BUN Creatinine Glucose POC Glucose 255 H 365 H Lactic Acid Calcium Phosphorus Magnesium Iron TIBC Direct Bilirubin AST ALT Alkaline Phosphatase Total Creatine Kinase CK-MB (CK-2) C-Reactive Protein Total Protein Albumin Vitamin B12 Salicylates Acetaminophen Miscellaneous Test Crossmatch 04/15/19 04/15/19 04/16/19 18:06 23:34 00:40 WBC RBC Hgb Hct MCV MCH MCHC RDW Plt Count [place] % (Auto) Lymph # Seg Neuts % (Manual) Lymphocytes % (Manual) Nucleated RBC % Seg Neutrophils # Man Lymphocytes # (Manual) Monocytes # (Manual) PT INR APTT D-Dimer POC ABG pH ABG pH POC ABG pCO2 POC ABG pO2 ABG pO2 ABG HCO3 ABG O2 Saturation ABG Base Excess ABG Hemoglobin VBG pH Oxyhemoglobin Sodium Potassium Chloride Carbon Dioxide BUN Creatinine Glucose POC Glucose 157 H 56 L 107 H Lactic Acid Calcium Phosphorus Magnesium Iron TIBC Direct Bilirubin AST ALT Alkaline Phosphatase Total Creatine Kinase CK-MB (CK-2) C-Reactive Protein Total Protein Albumin Vitamin B12 Salicylates Acetaminophen Miscellaneous Test Crossmatch Allied health notes reviewed: nursing
[2019-04-16 09:29] LABS: Hematocrit 28.9 % (30.3-42.9); Hemoglobin 9.7 gm/dl (10.1-14.3); Mean Corpuscular HGB Conc 33 % (30-34); Mean Corpuscular Volume 98 fl (79-97); Platelet Count 581 K/mm3 (140-440); Red Blood Count 2.95 M/mm3 (3.65-5.03); Red Cell Distribution Width 17.7 % (13.2-15.2)
[2019-04-16 09:43] LABS: BUN/Creatinine Ratio 50; Blood Urea Nitrogen 10 mg/dL (7-17); Calcium 8.9 mg/dL (8.4-10.2); Hemolysis Index 0
[2019-04-16] MEDS: KEPPRA PO SCH ×2 (09:53→22:09)
[2019-04-16] MEDS: METOPROLOL PO SCH ×2 (09:53→22:10)
[2019-04-16] MEDS: PEPCID PO SCH ×2 (09:53→22:09)
[2019-04-16] MEDS: SODIUM CHLORIDE FLUSH SYRINGE 10 ML IV SCH ×2 (09:54→22:11)
[2019-04-16] MEDS: ENOXAPARIN SUB-Q SCH (09:54)
--- NOTE | 2019-04-16 10:53 | Progress Note ---
Assessment and Plan Cultures: 03/29 BCx: no growth 03/29 sputum Cx: C albicans 03/30/2019 MRSA nasal: negative A/P: 28 yo F PMHx T1DM admitted after receiving intubation and CPR due to non- responsiveness likely secondary to DKA 1. Sepsis - resolved. 2. Aspiration pneumonia - Procal elevated. Completed abx. Jenn in sputum culture not a pathogen of the respiratory tract. 3. Liver lesion - Unlikely abscess. Likely trauma related subcapsular hematoma on follow up CT imaging and discussion with radiology. Appreciate Gen. Surg eval as well. 4. DM-type 1, admitted with DKA 5. Head lice - s/p treatment x 3. 6. Acute encephalopathy: MRI showed anoxic brain injury. Guarded prognosis, now DNR. Recs: - remains off antibiotics - Leucocytosis and thrombocytosis are likely reactive and stable to improving - overall guarded prognosis ID will sign off. Please call back with new issues. Linda Norman MD FACP [facility], [place], [facility] ([facility] Subjective Date of service: 04/16/19 Principal diagnosis: Ac Hypoxemic Resp Failure; DKA; Severe sepsis with shock; ANGELICA Interval history: No fever. Remains on the vent, now s/p trach and PEG. Family at bedside. Objective - Exam Narrative Exam: Physical Exam: Constitutional: opens eyes at times, remains on the vent via trach. Head, Ears, Nose: Normocephalic, atraumatic. External ears, nose normal Eyes: Conjunctivae/corneas clear. No icterus. No ptosis. Neck: trach + Oral: unable to examine Cardiovascular: S1, S2 normal. Respiratory: Good air entry, clear to auscultation bilaterally GI: Soft, non-tender; bowel sounds normal. Musculoskeletal: No pedal edema, no cyanosis. Skin: No rash or abscess Hem/Lymphatic: No palpable cervical or supraclavicular nodes. No lymphangitis Psych: no agitation Neurological: opens eyes at times, remains on the vent via trach - Constitutional Vitals: Vital Signs Temp Pulse Resp BP Pulse Ox 98.5 F 120 H 13 111/78 96 04/16/19 08:00 04/16/19 09:53 04/16/19 09:00 04/16/19 09:53 04/16/19 09:00 Temperature -Last 24 Hours Temperature 98.5 F Temperature 98.7 F Temperature 99.0 F Temperature 98.9 F Temperature 98.2 F Temperature 98.2 F - Labs CBC & Chem 7: 04/16/19 09:06 04/16/19 09:06 Labs: Abnormal lab results 04/15/19 04/15/19 04/15/19 Range/Units 12:44 18:06 18:06 WBC (4.5-11.0) K/mm3 RBC (3.65-5.03) M/mm3 Hgb (10.1-14.3) gm/dl Hct (30.3-42.9) % MCV (79-97) fl MCH (28-32) pg RDW (13.2-15.2) % Plt Count (140-440) K/mm3 POC ABG pH 7.461 H (7.35-7.45) POC ABG pCO2 45.5 H (35-45) Carbon Dioxide (22-30) mmol/L Creatinine (0.7-1.2) mg/dL Glucose (65-100) mg/dL POC Glucose 365 H 157 H (70-105) 04/15/19 04/16/19 04/16/19 Range/Units 23:34 00:40 09:06 WBC 12.9 H (4.5-11.0) K/mm3 RBC 2.95 L (3.65-5.03) M/mm3 Hgb 9.7 L (10.1-14.3) gm/dl Hct 28.9 L (30.3-42.9) % MCV 98 H (79-97) fl MCH 33 H (28-32) pg RDW 17.7 H (13.2-15.2) % Plt Count 581 H (140-440) K/mm3 POC ABG pH (7.35-7.45) POC ABG pCO2 (35-45) Carbon Dioxide (22-30) mmol/L Creatinine (0.7-1.2) mg/dL Glucose (65-100) mg/dL POC Glucose 56 L 107 H (70-105) 04/16/19 Range/Units 09:06 WBC (4.5-11.0) K/mm3 RBC (3.65-5.03) M/mm3 Hgb (10.1-14.3) gm/dl Hct (30.3-42.9) % MCV (79-97) fl MCH (28-32) pg RDW (13.2-15.2) % Plt Count (140-440) K/mm3 POC ABG pH (7.35-7.45) POC ABG pCO2 (35-45) Carbon Dioxide 31 H (22-30) mmol/L Creatinine 0.2 L (0.7-1.2) mg/dL Glucose 155 H (65-100) mg/dL POC Glucose (70-105) - Imaging and cardiology Chest x-ray: report reviewed, image reviewed (likely LLL atelectasis.)
--- NOTE | 2019-04-16 19:04 | Progress Note ---
Assessment and Plan Assessment and plan: Patient is 29 year old woman with a history of diabetes was brought to the emergency room following a cardiac arrest. Her last well-known time was 10:30 in the morning, she was traveling with a friend, she was unresponsive in the back seat. EMS was called, CPR was started and continued here in the emergency room. Patient was intubated in the ER, noted hypotensive started on dobutamine, epinephrine and Levophed drip, given IV fluids, found to be in DKA with BG ~2200, several metabolic derangements - placed on insulin drip and admitted to ICU. BP improved and she was weaned off pressors. Still intubated on vent, minimal response. patient has been in coma for several days, no improvement. She has a DNR status order. Acute respiratory failure s/p intubated, on vent - s/p trach and peg - on vent, cont nebs, - s/p Trach POD 3 - Pulm following - Aspiration precautions - VAP bundle Acute anoxic encephalopathy, POA - from cardiac arrest - Neurology following -MR concerning for anoxic Brain injury Cardiac arrest s/p resuscitation - likely 2/2 severe hyperglycemia - preserved EF on 2D echo Generalized Anasacar -Give a dose of Bumex DKA, severe - BG was >2200 on admission - s/p insulin drip. cont iv fluid - monitor BG q4h, on TF and on subqu insulin - adjust dose as needed Shock hypotensive vs sepsis - Now off pressors. Was on vasopressin, Levophed, Phenylephrine Sepsis with possible aspiration PNA - evident on CXR on admission with left sided infiltrates - cont abx per ID - Competed abx - Abx discontinued following notation that no evidence of liver lesion not consistent with infection per ID -Leucocytosis and thrombocytosis are likely reactive from hepatic subcapsular hematoma Head lice Permethin given isolation Acute renal failure, likely vasomotor nephropathy - resolved - cont iv fluid, monitor BMP Anemia, acute on chronic - no sign of blood loss s/p 2 Units PRBC transfused Hyperkalemia, resolved with fluid and insulin Hypernatremia Resolved hypokalemia, resolved Shock liver with elevated LFT and Coagulopathy - due to cardiac arrest and hypotension - cont to monitor Liver lesion ? abscess ID Physician following Discontinued abx, not consistent with infection as noted above Hypermagnesemia Hyperphosphatemia -cont to monitor, improved Stage 1 sacral ulcer upper ext blisters pressure ulcer prevention strategies VT Prophylaxis with Lovenox Poor prognosis discussed with mother at bedside. DNR status Mother has decided on DNR status The high probability of a clinically significant, sudden or life threatening deterioration of the [multiple] system(s) required my full and direct attention, intervention and personal management. The aggregate critical care time was [35] minutes. This time is in addition to time spent performing reported procedures but includes the following: [x] Data Review and interpretation [x] Patient assessment and monitoring of vital signs [x] Documentation [x] Medication orders and management History Interval history: Patient seen and examined, opens eyes spontaneously but remains unresponsive, on the vent Still intubated, still not following commands, No Fever. Hospitalist Physical - Physical exam Narrative exam: Gen: On full MVS and tolerating HEENT: facial edema, atraumatic. Trach bed clean with no drainage, opens eyes spontanously Neck: supple, no JVD Heart: S1 and S2 reg, Tachycardia, no murmurs, rubs or gallop Lungs: Clear to auscultation, no rhonchi, no wheeze Abd: soft, non tender, non distended, normal BS, Ext: anasarca, leg edema, no cyanosis Neuro: Minimal responsive, does not follow commands, Skin: see full skin assessment. Stage 1 sacral ulcer - Constitutional Vitals: Temp Pulse Resp BP Pulse Ox 98.5 F 117 H 22 111/67 99 04/16/19 16:00 04/16/19 18:00 04/16/19 18:00 04/16/19 18:00 04/16/19 18:00 General appearance: Present: other (intubated) Results - Labs CBC & Chem 7: 04/16/19 09:06 04/16/19 09:06 Labs: Laboratory Last Values WBC 12.9 K/mm3 (4.5-11.0) H 04/16/19 09:06 RBC 2.95 M/mm3 (3.65-5.03) L 04/16/19 09:06 Hgb 9.7 gm/dl (10.1-14.3) L 04/16/19 09:06 Hct 28.9 % (30.3-42.9) L 04/16/19 09:06 MCV 98 fl (79-97) H 04/16/19 09:06 MCH 33 pg (28-32) H 04/16/19 09:06 MCHC 33 % (30-34) 04/16/19 09:06 RDW 17.7 % (13.2-15.2) H 04/16/19 09:06 Plt Count 581 K/mm3 (140-440) H 04/16/19 09:06 Lymph % (Auto) 16.9 % (13.4-35.0) 04/03/19 03:40 [place] % (Auto) 9.8 % (0.0-7.3) H 04/03/19 03:40 Eos % (Auto) 3.2 % (0.0-4.3) 04/03/19 03:40 Baso % (Auto) 0.4 % (0.0-1.8) 04/03/19 03:40 Lymph # 1.1 K/mm3 (1.2-5.4) L 04/03/19 03:40 [place] # 0.6 K/mm3 (0.0-0.8) 04/03/19 03:40 Eos # 0.2 K/mm3 (0.0-0.4) 04/03/19 03:40 Baso # 0.0 K/mm3 (0.0-0.1) 04/03/19 03:40 Add Manual Diff Complete 04/01/19 05:01 Total Counted 100 04/01/19 05:01 Seg Neutrophils % 69.7 % (40.0-70.0) 04/03/19 03:40 Seg Neuts % (Manual) 71.0 % (40.0-70.0) H 04/01/19 05:01 0 % 04/01/19 05:01 20.0 % (13.4-35.0) 04/01/19 05:01 Reactive Lymphs % (Man) 0 % 04/01/19 05:01 7.0 % (0.0-7.3) 04/01/19 05:01 2.0 % (0.0-4.3) 04/01/19 05:01 0 % (0.0-1.8) 04/01/19 05:01 0 % 04/01/19 05:01 0 % 04/01/19 05:01 0 % 04/01/19 05:01 0 % 04/01/19 05:01 Nucleated RBC % Not Reportable 04/01/19 05:01 Seg Neutrophils # 4.4 K/mm3 (1.8-7.7) 04/03/19 03:40 Seg Neutrophils # Man 4.8 K/mm3 (1.8-7.7) 04/01/19 05:01 Band Neutrophils # 0.0 K/mm3 04/01/19 05:01 1.4 K/mm3 (1.2-5.4) 04/01/19 05:01 Abs React Lymphs (Man) 0.0 K/mm3 04/01/19 05:01 0.5 K/mm3 (0.0-0.8) 04/01/19 05:01 0.1 K/mm3 (0.0-0.4) 04/01/19 05:01 0.0 K/mm3 (0.0-0.1) 04/01/19 05:01 0.0 K/mm3 04/01/19 05:01 0.0 K/mm3 04/01/19 05:01 0.0 K/mm3 04/01/19 05:01 Blast Cells # 0.0 K/mm3 04/01/19 05:01 WBC Morphology Not Reportable 04/01/19 05:01 Hypersegmented Neuts Not Reportable 04/01/19 05:01 Hyposegmented Neuts Not Reportable 04/01/19 05:01 Hypogranular Neuts Not Reportable 04/01/19 05:01 Not Reportable 04/01/19 05:01 Not Reportable 04/01/19 05:01 Not Reportable 04/01/19 05:01 Not Reportable 04/01/19 05:01 Not Reportable 04/01/19 05:01 Not Reportable 04/01/19 05:01 Not Reportable 04/01/19 05:01 Not Reportable 04/01/19 05:01 Plt Clumps, EDTA Not Reportable 04/01/19 05:01 Not Reportable 04/01/19 05:01 Not Reportable 04/01/19 05:01 Not Reportable 04/01/19 05:01 Plt Morphology Comment Not Reportable 04/01/19 05:01 RBC Morphology Normal 04/01/19 05:01 Dimorphic RBCs Not Reportable 04/01/19 05:01 Not Reportable 04/01/19 05:01 Not Reportable 04/01/19 05:01 Not Reportable 04/01/19 05:01 Not Reportable 04/01/19 05:01 Not Reportable 04/01/19 05:01 Not Reportable 04/01/19 05:01 Not Reportable 04/01/19 05:01 Not Reportable 04/01/19 05:01 Not Reportable 04/01/19 05:01 Not Reportable 04/01/19 05:01 Not Reportable 04/01/19 05:01 Not Reportable 04/01/19 05:01 Not Reportable 04/01/19 05:01 Not Reportable 04/01/19 05:01 Not Reportable 04/01/19 05:01 Not Reportable 04/01/19 05:01 Not Reportable 04/01/19 05:01 Not Reportable 04/01/19 05:01 Not Reportable 04/01/19 05:01 Acanthocytes (Spur) Not Reportable 04/01/19 05:01 Rouleaux Not Reportable 04/01/19 05:01 Not Reportable 04/01/19 05:01 Not Reportable 04/01/19 05:01 Not Reportable 04/01/19 05:01 Not Reportable 04/01/19 05:01 Hem Pathologist Commnt No 04/01/19 05:01 PT 13.9 Sec. (12.2-14.9) 04/01/19 17:14 INR 1.10 (0.87-1.13) 04/01/19 17:14 APTT 74.5 Sec. (24.2-36.6) H* 03/29/19 19:20 313 mg/dl (211-480) 04/01/19 17:14 4526.86 ng/mlDDU (0-234) H 04/06/19 00:06 Heparin Anti-Xa, Unfract Negative (Negative) 03/31/19 15:00 POC ABG pH 7.461 (7.35-7.45) H 04/15/19 18:06 ABG pH 7.396 pH Units (7.350-7.450) 04/03/19 05:35 POC ABG pCO2 45.5 (35-45) H 04/15/19 18:06 ABG pCO2 32.2 mm Hg 04/03/19 05:35 POC ABG pO2 87 (80-105) 04/15/19 18:06 ABG pO2 97.7 mm Hg (80.0-90.0) H 04/03/19 05:35 POC ABG HCO3 32.5 (22-26 mml/L) 04/15/19 18:06 ABG HCO3 19.3 mmol/L (20.0-26.0) L 04/03/19 05:35 POC ABG Total CO2 34 (23-27mmol/L) 04/15/19 18:06 POC ABG O2 Sat 97 04/15/19 18:06 ABG O2 Saturation 97.6 % (95.0-99.0) 04/03/19 05:35 ABG O2 Content 10.9 (0.0-44) 04/03/19 05:35 POC ABG Base Excess 9 ((-2) - (+3)mmol/L) 04/15/19 18:06 ABG Base Excess -5.0 mmol/L (-2.0-3.0) L 04/03/19 05:35 ABG Hemoglobin 8.0 gm/dl (12.0-16.0) L 04/03/19 05:35 ABG Carboxyhemoglobin 2.1 % (0.0-5.0) 04/03/19 05:35 ABG Methemoglobin 0.5 % (0.0-1.5) 04/03/19 05:35 VBG pH 6.800 (7.320-7.420) L* 03/29/19 19:47 95.1 % (95.0-99.0) 04/03/19 05:35 25 % 04/15/19 18:06 Sodium 137 mmol/L (137-145) 04/16/19 09:06 Potassium 4.7 mmol/L (3.6-5.0) 04/16/19 09:06 Chloride 98.1 mmol/L (98-107) 04/16/19 09:06 Carbon Dioxide 31 mmol/L (22-30) H 04/16/19 09:06 13 mmol/L 04/16/19 09:06 BUN 10 mg/dL (7-17) 04/16/19 09:06 0.2 mg/dL (0.7-1.2) L 04/16/19 09:06 Estimated GFR > 60 ml/min 04/16/19 09:06 50 % 04/16/19 09:06 Glucose 155 mg/dL (65-100) H 04/16/19 09:06 POC Glucose 173 (70-105) H 04/16/19 17:28 Lactic Acid 3.30 mmol/L (0.7-2.0) H* 03/31/19 07:50 Calcium 8.9 mg/dL (8.4-10.2) 04/16/19 09:06 Phosphorus 4.10 mg/dL (2.5-4.5) 04/09/19 16:25 Magnesium 1.80 mg/dL (1.7-2.3) 04/09/19 16:25 Iron 26 ug/dL (37-170) L 03/31/19 08:20 TIBC 193 mcg/dL (250-450) L 03/31/19 08:20 0.60 mg/dL (0.1-1.2) 04/03/19 03:40 0.2 mg/dL (0-0.2) 04/02/19 07:48 0.5 mg/dL 04/02/19 07:48 AST 594 units/L (5-40) H 04/03/19 03:40 ALT 861 units/L (7-56) H 04/03/19 03:40 299 units/L (35-129) H 04/03/19 03:40 2465 units/L (30-135) H 03/30/19 05:26 CK-MB (CK-2) 52.7 ng/mL (0.0-4.0) H 03/30/19 05:26 CK-MB (CK-2) Rel Index 2.1 (0-4) 03/30/19 05:26 < 0.010 ng/mL (0.00-0.029) 04/06/19 05:20 2.40 mg/dL (0.00-1.30) H 03/30/19 12:57 4.4 g/dL (6.3-8.2) L 04/03/19 03:40 2.1 g/dL (3.9-5) L 04/03/19 03:40 0.9 % 04/03/19 03:40 See scanned result 03/31/19 15:00 Vitamin B12 > 2000 pg/mL (211-911) H 03/31/19 08:20 > 20 ng/mL (7.3-26.0) 03/31/19 08:20 HCG, Qual Negative (Negative) 03/29/19 19:20 Yellow (Yellow) 03/29/19 23:10 Slightly-cloudy (Clear) 03/29/19 23:10 6.0 (5.0-7.0) 03/29/19 23:10 Ur Specific [place] 1.021 (1.003-1.030) 03/29/19 23:10 100 mg/dl mg/dL (Negative) 03/29/19 23:10 >=500 mg/dL (Negative) 03/29/19 23:10 20 mg/dL (Negative) 03/29/19 23:10 Lg (Negative) 03/29/19 23:10 Neg (Negative) 03/29/19 23:10 Neg (Negative) 03/29/19 23:10 < 2.0 mg/dL (<2.0) 03/29/19 23:10 Ur Leukocyte Esterase Neg (Negative) 03/29/19 23:10 1.0 /HPF (0.0-6.0) 03/29/19 23:10 1.0 /HPF (0.0-6.0) 03/29/19 23:10 Few /HPF 03/29/19 23:10 Salicylates 0.8 mg/dL (2.8-20.0) L 03/30/19 Unknown Presumptive negative 03/29/19 23:10 Presumptive negative 03/29/19 23:10 Acetaminophen < 5.0 ug/mL (10.0-30.0) L 03/30/19 Unknown Ur Barbiturates Screen Presumptive negative 03/29/19 23:10 Ur Phencyclidine Scrn Presumptive negative 03/29/19 23:10 Ur Amphetamines Screen Presumptive negative 03/29/19 23:10 U Benzodiazepines Scrn Presumptive negative 03/29/19 23:10 Presumptive negative 03/29/19 23:10 U Marijuana (THC) Screen Presumptive negative 03/29/19 23:10 Disclamer 03/29/19 23:10 Heparin-induced Plt Ab Negative (Negative) 03/31/19 15:00 UF Heparin High Dose 0 % Release 03/31/19 15:00 FABIAN UFH Low Dose 0.1 0 % Release 03/31/19 15:00 FABIAN UFH Low Dose 0.5 0 % Release 03/31/19 15:00 Hepatitis A IgM Ab Non-reactive (NonReactive) 03/30/19 Unknown Hep Bs Antigen Non-reactive (Negative) 03/30/19 Unknown Hep B Core IgM Ab Non-reactive (NonReactive) 03/30/19 Unknown Non-reactive (NonReactive) 03/30/19 Unknown Flexitest 1 H 03/30/19 14:00 Blood Type O POSITIVE 03/30/19 03:30 Antibody Screen Negative 03/30/19 03:30 Crossmatch See Detail 03/30/19 03:30 Active Medications - Current Medications Current Medications: Generic Name Dose Route Start Last Admin Trade Name Freq PRN Reason Stop Dose Admin Acetaminophen 650 mg 03/29/19 23:34 04/01/19 23:38 Tylenol PO 650 mg Q4H PRN Administration Pain MILD(1-3)/Fever >100.5/WARE Lipase/Protease/Amylase 1 each 04/02/19 11:44 Pancreazaaliyah Daniels 10,500 Unit FEEDTUBE PRN PRN For Clogged Feeding Tube Dextrose 0 ml 03/29/19 20:33 04/15/19 23:36 D50w (25gm) Syringe IV 20 ml PRN PRN Administration Hypoglycemia Enoxaparin Sodium 40 mg 04/14/19 10:00 04/16/19 09:54 Lovenox SUB-Q 40 mg QDAY@1000 ZAMZAM Administration Famotidine 20 mg 04/02/19 10:00 04/16/19 09:53 Pepcid PO 20 mg BID ZAMZAM Administration Fentanyl 50 mcg 04/05/19 11:00 04/14/19 13:17 Sublimaze IV 50 mcg Q2H PRN Administration Pain , Severe (7-10)/AGITATION Fentanyl 25 mcg 04/14/19 14:00 04/14/19 17:23 Duragesic TD 25 mcg Q3D ZAMZAM Administration Hydrophilic Ointment 1 applic 03/30/19 11:24 Vaseline Lip Therapy TP Q2HR PRN Dry Lips Insulin Glargine 20 units 04/09/19 22:00 04/15/19 22:09 Lantus SUB-Q 20 units QHS ZAMZAM Administration Insulin Human Regular 0 units 04/09/19 12:00 04/16/19 17:46 Humulin R SUB-Q 2 units Q6HR ZAMZAM Administration Protocol Levetiracetam 500 mg 04/03/19 10:00 04/16/19 09:53 Keppra PO 500 mg BID ZAMZAM Administration Metoprolol Tartrate 5 mg 04/14/19 13:06 Lopressor IV Q6HR PRN Tachyarrhythmias Metoprolol Tartrate 25 mg 04/16/19 10:00 04/16/19 09:53 Lopressor PO 25 mg BID ZAMZAM Administration Multi-Ingred Cream/Lotion/Oil/Oint 1 applic 03/30/19 11:24 04/06/19 11:39 Artificial Tears Ophth Oint OU 1 applic Q4HR PRN Administration Dry Eye(s) Ondansetron HCl 4 mg 03/29/19 23:34 Zofran IV Q8H PRN Nausea And Vomiting Simple Syrup 15 ml 04/02/19 11:44 04/14/19 01:53 Simple Syrup FEEDTUBE 15 ml PRN PRN Administration Hypoglycemia Simple Syrup 30 ml 04/02/19 11:44 Simple Syrup FEEDTUBE PRN PRN Hypoglycemia Sodium Bicarbonate 325 mg 04/02/19 11:44 Sodium Bicarbonate FEEDTUBE PRN PRN For Clogged Feeding Tube Sodium Chloride 10 ml 03/30/19 10:00 04/16/19 09:54 Sodium Chloride Flush Syringe 10 Ml IV 10 ml BID ZAMZAM Administration Sodium Chloride 10 ml 03/29/19 23:34 Sodium Chloride Flush Syringe 10 Ml IV PRN PRN LINE FLUSH Nutrition/Malnutrition Assess - Dietary Evaluation Nutrition/Malnutrition Findings: Nutrition Notes Start: 03/30/19 13:14 Freq: Status: Active Protocol: Document 04/11/19 10:44 LM (Rec: 04/11/19 10:54 LM [email or web address]) Nutrition Notes Initial or Follow up Reassessment Current Diagnosis Diabetes,Sepsis,Respiratory Failure Other Pertinent Diagnosis s/p cardiac arrest, DKA, ARF, Shock liver Current Diet Glucerna 1.2 at 50 ml/hr Labs/Tests POC glu 109 Pertinent Medications Reviewed Height 5 ft Weight 42.8 kg [place] Body Weight (kg) 45.45 BMI 18.4 Weight change and time frame Wt change noted Subjective/Other Information Glucerna running at 50 ml/hr. Pt is tolerateing TF. Per MD pt will be getting trach and PEG. Pt remains on vent. Burn Absent Trauma Absent #1 Nutrition Diagnosis Inadequate oral intake Diagnosis Progress(for reassessment Continues documentation) Is patient on ventilator? Yes Is Patient Ambulatory and/or Out of Bed No REE-([facility]-confined to bed) 1279.860 Kcal/Kg value to use for calculation 40 Approximate Energy Requirements Using 1712 kcal/Kg Additional Notes Protein: 1.2-2g/k-86g/day Fluids: 1ml/kcal Nutrition Intervention Change Diet Order: Continue TF Nutrition Support: Glucerna 1.2 at 50ml/hr with 80ml water flush q4h. Kcal 1,440 Protein (gm) 72 Fluid (mL) 966 Goal #1 Meet at least 75% of energy and protein needs Follow-Up By: 04/18/19 Additional Comments F/U for TF tolerance/rate
[2019-04-16] MEDS: SUBLIMAZE IV PRN (20:42)
[2019-04-16] MEDS: LANTUS SUB-Q SCH (22:11)
[2019-04-17] MEDS: SUBLIMAZE IV PRN (05:18)
[2019-04-17] MEDS: HumuLIN R SUB-Q SCH ×3 (05:19→18:09)
[2019-04-17] MEDS: METOPROLOL IV PRN ×2 (08:30→19:44)
[2019-04-17] MEDS: KEPPRA PO SCH ×2 (09:45→21:43)
[2019-04-17] MEDS: PEPCID PO SCH ×2 (09:45→21:43)
[2019-04-17] MEDS: ENOXAPARIN SUB-Q SCH (09:45)
[2019-04-17] MEDS: METOPROLOL PO SCH ×2 (10:05→21:43)
[2019-04-17] MEDS: SODIUM CHLORIDE FLUSH SYRINGE 10 ML IV SCH ×2 (12:48→21:56)
[2019-04-17] MEDS: TRANSDERM-SCOP TD SCH (12:48)
--- NOTE | 2019-04-17 13:02 | XRay Report ---
CHEST 1 VIEW INDICATION: aspiration. COMPARISON: 04/15/2019 FINDINGS: Support devices: The tracheostomy tube has slipped into the right mainstem bronchus since the last ex am. Heart: Normal size and shifted to the left. Lungs/Pleura: Near complete opacification of the left hemithorax has occurred since the last exam. Th e right lung is normally expanded and clear. No pneumothorax. Additional findings: None. IMPRESSION: Tracheostomy tube in the right mainstem bronchus and complete atelectasis of the left lung. Signer Name: Antwon Haley MD Signed: 04/17/2019 12:57 PM Workstation Name: [id number]
--- NOTE | 2019-04-17 14:08 | Progress Note ---
Assessment and Plan Acute toxic metabolic encephalopathy. Diabetic ketoacidosis. Severe sepsis with shock. Possible aspiration pneumonia. History of polysubstance abuse. Leukocytosis. Elevated serum transaminases, possible shock liver. Hyponatremia related to her severe hyperglycemia. Anemia that is macrocytic. History of seizure disorder. Severe metabolic acidosis. Acute kidney injury, possibly on chronic - trach rube repositioned and packed in place - repeat CXR to confirm - resume t-piece trials as tolerated - repeat ABG at 9pm tonight and if acceptable keep on RTC - add scopolamine patch for secretion control - continue daily SAT and SBT assessments as tolerated otherwise - continue metoprolol at 25 mg po bid scheduled - continue prn IV metoprolol 5mg q6h for pulse > 130/min - continue fentanyl 25 mics/hr patch re: chronic back pain - continue set rate at 12/min while resting - continue contact isolation - continue to follow mental status closely - follow clinically off AB's at this point - continue enteral nutrition with glucerna and adjust rate per manager simulation - continue bronchodilators with pulmonary hygiene per RT - VAP bundle addressed - continue to wean supplemental O2 to keep O2 sats > 90% - VTE prophylaxis with lovenox - Stress ulcer prophylaxis - continue accuchecks with glycemic control per SSI for target blood glucose 140-180 mg/dL - continue empiric antibiotics; de-escalate per ID rec's and based on clinical and microbiologic data - sedation target of RASS 0 to -1 - continue Keppra for seizures - continue mobility protocols / off loading for pressure ulcer prevention - Critical care bundles addressed - continue Seizure precautions - fall precautions - neuro-checks per RN - continue other care per attending / other consultants CONDITION: CRITICAL PROGNOSIS: GUARDED TO GRAVE CODE STATUS: FULL CODE The high probability of a clinically significant, sudden or life threatening deterioration of the [Neurology Respiratory, Cardiovascular] system(s) required my full and direct attention, intervention and personal management. The aggregate critical care time was [35] minutes. This time is in addition to time spent performing reported procedures but includes the following: [x] Data Review and interpretation [x] Patient assessment and monitoring of vital signs [x] Documentation [x] Medication orders and management Subjective Date of service: 04/17/19 Principal diagnosis: Ac Hypoxemic Resp Failure; DKA; Severe sepsis with shock; ANGELICA Interval history: Patient is seen today for: Acute Hypoxemic Resp Failure; Ac toxic metabolic encephalopathy; DKA; Severe sepsis with shock; Possible aspiration pneumonia; History of polysubstance abuse; History of seizure disorder; Acute kidney injury, possibly on chronic Seen and examined at bedside; 24hour events reviewed; nursing and respiratory care staff consulted; no adverse overnight events reported to me; resting peacefully in bed; decompensated earlier this morning on t-piece and placed back on MVS; CXR revealed right mainstem intubation with trach tube; AMS is p ersistent Objective Vital Signs - 12hr 04/17/19 04/17/19 04/17/19 03:00 03:05 04:00 Temperature 99.4 F Pulse Rate 127 H 128 H Pulse Rate [ 127 H From Monitor] Respiratory 33 H 34 H Rate Blood Pressure 108/65 115/76 O2 Sat by Pulse 91 96 Oximetry O2 Sat by Pulse Oximetry [ Assessment] 04/17/19 04/17/19 04/17/19 04:55 05:01 06:00 Temperature Pulse Rate 131 H 143 H 125 H Pulse Rate [ From Monitor] Respiratory 28 H 40 H 24 Rate Blood Pressure 115/76 113/77 O2 Sat by Pulse 94 91 95 Oximetry O2 Sat by Pulse 94 Oximetry [ Assessment] 04/17/19 04/17/19 04/17/19 07:00 08:00 08:30 Temperature 99.1 F Pulse Rate 125 H 128 H 140 H Pulse Rate [ 127 H From Monitor] Respiratory 25 H 27 H Rate Blood Pressure 117/83 120/81 120/81 O2 Sat by Pulse 95 94 Oximetry O2 Sat by Pulse Oximetry [ Assessment] 04/17/19 04/17/19 04/17/19 09:00 10:00 10:11 Temperature Pulse Rate 118 H 126 H Pulse Rate [ From Monitor] Respiratory 26 H 35 H Rate Blood Pressure 108/71 119/77 O2 Sat by Pulse 97 83 L 84 Oximetry O2 Sat by Pulse Oximetry [ Assessment] 04/17/19 04/17/19 04/17/19 10:30 11:00 12:00 Temperature 100.0 F H Pulse Rate 135 H 123 H 116 H Pulse Rate [ 127 H From Monitor] Respiratory 13 12 Rate Blood Pressure 119/77 108/75 110/79 O2 Sat by Pulse 70 L 99 100 Oximetry O2 Sat by Pulse Oximetry [ Assessment] 04/17/19 04/17/19 12:50 13:00 Temperature Pulse Rate 119 H 121 H Pulse Rate [ From Monitor] Respiratory 1 L 10 L Rate Blood Pressure 110/79 109/75 O2 Sat by Pulse 100 97 Oximetry O2 Sat by Pulse Oximetry [ Assessment] Constitutional: no acute distress, other (young CF normocephalic and atraumatic on MVS) Eyes: non-icteric ENT: oropharynx moist, other (s/p tracheostomy) Neck: supple, no lymphadenopathy, no JVD Effort: mildly labored Ascultation: Bilateral: diminished breath sounds, rhonchi (bases) Percussion: Bilateral: not dull Cardiovascular: regular rate and rhythm, other (sinus tachycardia) Gastrointestinal: hypoactive bowel sounds, soft, non-tender, non-distended Integumentary: erythema (noted on upper extremity) Extremities: no cyanosis, pink and warm, pulses normal, no ischemia or petechiae, edema (trace to 1+) Neurologic: unable to assess (remains unresponsive, opens eyes on suctioning, not obeying commands) Psychiatric: other (unable to assess) CBC and BMP: 04/16/19 09:06 04/16/19 09:06 ABG, PT/INR, D-dimer: ABG POC ABG pH 7.479 (7.35-7.45) H 04/16/19 20:17 ABG pH 7.396 pH Units (7.350-7.450) 04/03/19 05:35 POC ABG pCO2 42.3 (35-45) 04/16/19 20:17 ABG pCO2 32.2 mm Hg 04/03/19 05:35 POC ABG pO2 71 (80-105) L 04/16/19 20:17 ABG pO2 97.7 mm Hg (80.0-90.0) H 04/03/19 05:35 POC ABG HCO3 31.4 (22-26 mml/L) 04/16/19 20:17 POC ABG Total CO2 33 (23-27mmol/L) 04/16/19 20:17 POC ABG O2 Sat 95 04/16/19 20:17 ABG O2 Saturation 97.6 % (95.0-99.0) 04/03/19 05:35 PT/INR, D-dimer PT 13.9 Sec. (12.2-14.9) 04/01/19 17:14 INR 1.10 (0.87-1.13) 04/01/19 17:14 4526.86 ng/mlDDU (0-234) H 04/06/19 00:06 Abnormal lab findings: Abnormal Labs 03/29/19 03/29/19 03/29/19 19:11 19:20 19:20 WBC 26.7 H RBC 2.52 L Hgb 8.1 L Hct MCV 148 H MCH MCHC 22 L RDW 18.5 H Plt Count [place] % (Auto) Lymph # Seg Neuts % (Manual) 82.0 H Lymphocytes % (Manual) 7.0 L Nucleated RBC % Seg Neutrophils # Man 21.9 H Lymphocytes # (Manual) Monocytes # (Manual) 1.9 H PT 21.8 H INR 1.95 H APTT 74.5 H* D-Dimer POC ABG pH ABG pH POC ABG pCO2 POC ABG pO2 ABG pO2 ABG HCO3 ABG O2 Saturation ABG Base Excess ABG Hemoglobin VBG pH Oxyhemoglobin Sodium Potassium Chloride Carbon Dioxide BUN Creatinine Glucose POC Glucose > 500 H Lactic Acid Calcium Phosphorus Magnesium Iron TIBC Direct Bilirubin AST ALT Alkaline Phosphatase Total Creatine Kinase CK-MB (CK-2) C-Reactive Protein Total Protein Albumin Vitamin B12 Salicylates Acetaminophen Miscellaneous Test Crossmatch 03/29/19 03/29/19 03/29/19 19:20 19:47 20:59 WBC RBC Hgb Hct MCV MCH MCHC RDW Plt Count [place] % (Auto) Lymph # Seg Neuts % (Manual) Lymphocytes % (Manual) Nucleated RBC % Seg Neutrophils # Man Lymphocytes # (Manual) Monocytes # (Manual) PT INR APTT D-Dimer POC ABG pH 6.892 L ABG pH POC ABG pCO2 POC ABG pO2 236 H ABG pO2 ABG HCO3 ABG O2 Saturation ABG Base Excess ABG Hemoglobin VBG pH 6.800 L* Oxyhemoglobin Sodium 118 L* Potassium 9.0 H* Chloride 64.5 L Carbon Dioxide 7 L* BUN 53 H Creatinine 2.1 H Glucose 2196 H* POC Glucose Lactic Acid Calcium 12.4 H* Phosphorus Magnesium Iron TIBC Direct Bilirubin AST 3900 H ALT 1034 H Alkaline Phosphatase 316 H Total Creatine Kinase CK-MB (CK-2) C-Reactive Protein Total Protein 5.1 L Albumin 2.8 L Vitamin B12 Salicylates Acetaminophen Miscellaneous Test Crossmatch 03/29/19 03/29/19 03/29/19 22:45 22:45 22:45 WBC RBC Hgb Hct MCV MCH MCHC RDW Plt Count [place] % (Auto) Lymph # Seg Neuts % (Manual) Lymphocytes % (Manual) Nucleated RBC % Seg Neutrophils # Man Lymphocytes # (Manual) Monocytes # (Manual) PT INR APTT D-Dimer POC ABG pH ABG pH POC ABG pCO2 POC ABG pO2 ABG pO2 ABG HCO3 ABG O2 Saturation ABG Base Excess ABG Hemoglobin VBG pH Oxyhemoglobin Sodium 132 L D Potassium 7.0 H* Chloride 84.3 L Carbon Dioxide 3 L* BUN 48 H Creatinine 1.8 H Glucose 1779 H* POC Glucose Lactic Acid Calcium Phosphorus 21.70 H Magnesium 4.70 H Iron TIBC Direct Bilirubin AST ALT Alkaline Phosphatase Total Creatine Kinase 363 H CK-MB (CK-2) C-Reactive Protein Total Protein Albumin Vitamin B12 Salicylates Acetaminophen Miscellaneous Test Crossmatch 03/29/19 03/29/19 03/30/19 Unknown Unknown 00:11 WBC RBC Hgb Hct MCV MCH MCHC RDW Plt Count [place] % (Auto) Lymph # Seg Neuts % (Manual) Lymphocytes % (Manual) Nucleated RBC % Seg Neutrophils # Man Lymphocytes # (Manual) Monocytes # (Manual) PT INR APTT D-Dimer POC ABG pH ABG pH POC ABG pCO2 POC ABG pO2 ABG pO2 ABG HCO3 ABG O2 Saturation ABG Base Excess ABG Hemoglobin VBG pH Oxyhemoglobin Sodium 122 L Potassium 7.9 H* 6.4 H* Chloride 75.3 L 89.7 L Carbon Dioxide 3 L* 12 L D BUN 52 H 46 H Creatinine 2.0 H 1.7 H Glucose 2043 H* 1591 H* POC Glucose Lactic Acid Calcium 7.8 L Phosphorus 19.30 H Magnesium 3.90 H Iron TIBC Direct Bilirubin AST ALT Alkaline Phosphatase Total Creatine Kinase CK-MB (CK-2) C-Reactive Protein Total Protein Albumin Vitamin B12 Salicylates Acetaminophen Miscellaneous Test Crossmatch 03/30/19 03/30/19 03/30/19 00:11 02:14 02:14 WBC RBC Hgb Hct MCV MCH MCHC RDW Plt Count [place] % (Auto) Lymph # Seg Neuts % (Manual) Lymphocytes % (Manual) Nucleated RBC % Seg Neutrophils # Man Lymphocytes # (Manual) Monocytes # (Manual) PT INR APTT D-Dimer POC ABG pH ABG pH POC ABG pCO2 POC ABG pO2 ABG pO2 ABG HCO3 ABG O2 Saturation ABG Base Excess ABG Hemoglobin VBG pH Oxyhemoglobin Sodium Potassium Chloride Carbon Dioxide 9 L* BUN 45 H Creatinine 1.7 H Glucose 1155 H* POC Glucose Lactic Acid Calcium 7.9 L Phosphorus 10.90 H D 5.30 H D Magnesium 3.10 H 2.90 H Iron TIBC Direct Bilirubin AST ALT Alkaline Phosphatase Total Creatine Kinase CK-MB (CK-2) C-Reactive Protein Total Protein Albumin Vitamin B12 Salicylates Acetaminophen Miscellaneous Test Crossmatch 03/30/19 03/30/19 03/30/19 03:15 03:30 04:23 WBC 18.0 H RBC 2.31 L Hgb 7.3 L Hct 23.8 L D MCV 103 H MCH MCHC RDW 17.1 H Plt Count [place] % (Auto) Lymph # Seg Neuts % (Manual) 79.0 H Lymphocytes % (Manual) Nucleated RBC % Seg Neutrophils # Man 14.2 H Lymphocytes # (Manual) Monocytes # (Manual) PT INR APTT D-Dimer POC ABG pH 7.251 L ABG pH POC ABG pCO2 POC ABG pO2 156 H ABG pO2 ABG HCO3 ABG O2 Saturation ABG Base Excess ABG Hemoglobin VBG pH Oxyhemoglobin Sodium Potassium Chloride Carbon Dioxide BUN Creatinine Glucose POC Glucose Lactic Acid Calcium Phosphorus Magnesium Iron TIBC Direct Bilirubin AST ALT Alkaline Phosphatase Total Creatine Kinase CK-MB (CK-2) C-Reactive Protein Total Protein Albumin Vitamin B12 Salicylates Acetaminophen Miscellaneous Test Crossmatch See Detail 03/30/19 03/30/19 03/30/19 05:26 05:26 10:38 WBC RBC Hgb Hct MCV MCH MCHC RDW Plt Count [place] % (Auto) Lymph # Seg Neuts % (Manual) Lymphocytes % (Manual) Nucleated RBC % Seg Neutrophils # Man Lymphocytes # (Manual) Monocytes # (Manual) PT INR APTT D-Dimer POC ABG pH ABG pH POC ABG pCO2 POC ABG pO2 ABG pO2 ABG HCO3 ABG O2 Saturation ABG Base Excess ABG Hemoglobin VBG pH Oxyhemoglobin Sodium 158 H D Potassium 3.5 L Chloride 109.3 H Carbon Dioxide 19 L D BUN 40 H Creatinine 1.5 H Glucose 760 H* POC Glucose 380 H Lactic Acid Calcium 7.3 L Phosphorus Magnesium 2.60 H Iron TIBC Direct Bilirubin AST 90841 H ALT 2156 H Alkaline Phosphatase 271 H Total Creatine Kinase 2465 H CK-MB (CK-2) 52.7 H C-Reactive Protein Total Protein 4.5 L Albumin 2.4 L Vitamin B12 Salicylates Acetaminophen Miscellaneous Test Crossmatch 03/30/19 03/30/19 03/30/19 11:08 12:25 12:57 WBC RBC Hgb Hct MCV MCH MCHC RDW Plt Count [place] % (Auto) Lymph # Seg Neuts % (Manual) Lymphocytes % (Manual) Nucleated RBC % Seg Neutrophils # Man Lymphocytes # (Manual) Monocytes # (Manual) PT INR APTT D-Dimer POC ABG pH ABG pH POC ABG pCO2 POC ABG pO2 ABG pO2 ABG HCO3 ABG O2 Saturation ABG Base Excess ABG Hemoglobin VBG pH Oxyhemoglobin Sodium 156 H Potassium 3.2 L Chloride 116.4 H Carbon Dioxide 21 L BUN 37 H Creatinine Glucose 162 H POC Glucose 263 H 196 H Lactic Acid Calcium 7.2 L Phosphorus Magnesium Iron TIBC Direct Bilirubin AST ALT Alkaline Phosphatase Total Creatine Kinase CK-MB (CK-2) C-Reactive Protein Total Protein Albumin Vitamin B12 Salicylates Acetaminophen Miscellaneous Test Crossmatch 03/30/19 03/30/19 03/30/19 12:57 12:57 12:57 WBC RBC Hgb Hct MCV MCH MCHC RDW Plt Count [place] % (Auto) Lymph # Seg Neuts % (Manual) Lymphocytes % (Manual) Nucleated RBC % Seg Neutrophils # Man Lymphocytes # (Manual) Monocytes # (Manual) PT 21.0 H INR 1.86 H APTT D-Dimer POC ABG pH ABG pH POC ABG pCO2 POC ABG pO2 ABG pO2 ABG HCO3 ABG O2 Saturation ABG Base Excess ABG Hemoglobin VBG pH Oxyhemoglobin Sodium Potassium Chloride Carbon Dioxide BUN Creatinine Glucose POC Glucose Lactic Acid 9.00 H* Calcium Phosphorus Magnesium Iron TIBC Direct Bilirubin AST ALT Alkaline Phosphatase Total Creatine Kinase CK-MB (CK-2) C-Reactive Protein 2.40 H Total Protein Albumin Vitamin B12 Salicylates Acetaminophen Miscellaneous Test Crossmatch 03/30/19 03/30/19 03/30/19 13:23 14:00 14:47 WBC RBC Hgb Hct MCV MCH MCHC RDW Plt Count [place] % (Auto) Lymph # Seg Neuts % (Manual) Lymphocytes % (Manual) Nucleated RBC % Seg Neutrophils # Man Lymphocytes # (Manual) Monocytes # (Manual) PT INR APTT D-Dimer POC ABG pH ABG pH POC ABG pCO2 POC ABG pO2 ABG pO2 ABG HCO3 ABG O2 Saturation ABG Base Excess ABG Hemoglobin VBG pH Oxyhemoglobin Sodium Potassium Chloride Carbon Dioxide BUN Creatinine Glucose POC Glucose 176 H 245 H Lactic Acid Calcium Phosphorus Magnesium Iron TIBC Direct Bilirubin AST ALT Alkaline Phosphatase Total Creatine Kinase CK-MB (CK-2) C-Reactive Protein Total Protein Albumin Vitamin B12 Salicylates Acetaminophen Miscellaneous Test Flexitest 1 H Crossmatch 03/30/19 03/30/19 03/30/19 16:11 17:11 17:46 WBC RBC Hgb Hct MCV MCH MCHC RDW Plt Count [place] % (Auto) Lymph # Seg Neuts % (Manual) Lymphocytes % (Manual) Nucleated RBC % Seg Neutrophils # Man Lymphocytes # (Manual) Monocytes # (Manual) PT INR APTT D-Dimer POC ABG pH ABG pH POC ABG pCO2 POC ABG pO2 ABG pO2 ABG HCO3 ABG O2 Saturation ABG Base Excess ABG Hemoglobin VBG pH Oxyhemoglobin Sodium Potassium Chloride Carbon Dioxide BUN Creatinine Glucose POC Glucose 181 H 167 H 125 H Lactic Acid Calcium Phosphorus Magnesium Iron TIBC Direct Bilirubin AST ALT Alkaline Phosphatase Total Creatine Kinase CK-MB (CK-2) C-Reactive Protein Total Protein Albumin Vitamin B12 Salicylates Acetaminophen Miscellaneous Test Crossmatch 03/30/19 03/30/19 03/30/19 18:59 21:31 22:19 WBC RBC Hgb Hct MCV MCH MCHC RDW Plt Count [place] % (Auto) Lymph # Seg Neuts % (Manual) Lymphocytes % (Manual) Nucleated RBC % Seg Neutrophils # Man Lymphocytes # (Manual) Monocytes # (Manual) PT INR APTT D-Dimer POC ABG pH ABG pH POC ABG pCO2 POC ABG pO2 ABG pO2 ABG HCO3 ABG O2 Saturation ABG Base Excess ABG Hemoglobin VBG pH Oxyhemoglobin Sodium Potassium Chloride Carbon Dioxide BUN Creatinine Glucose POC Glucose 140 H 166 H 115 H Lactic Acid Calcium Phosphorus Magnesium Iron TIBC Direct Bilirubin AST ALT Alkaline Phosphatase Total Creatine Kinase CK-MB (CK-2) C-Reactive Protein Total Protein Albumin Vitamin B12 Salicylates Acetaminophen Miscellaneous Test Crossmatch 03/30/19 03/30/19 03/30/19 23:13 Unknown Unknown WBC RBC Hgb Hct MCV MCH MCHC RDW Plt Count [place] % (Auto) Lymph # Seg Neuts % (Manual) Lymphocytes % (Manual) Nucleated RBC % Seg Neutrophils # Man Lymphocytes # (Manual) Monocytes # (Manual) PT INR APTT D-Dimer POC ABG pH ABG pH POC ABG pCO2 POC ABG pO2 ABG pO2 47.8 L ABG HCO3 18.8 L ABG O2 Saturation 83.8 L ABG Base Excess -5.4 L ABG Hemoglobin 6.8 L VBG pH Oxyhemoglobin 81.8 L Sodium 157 H Potassium 3.3 L Chloride 117.9 H Carbon Dioxide 20 L BUN 36 H Creatinine Glucose 150 H POC Glucose 112 H Lactic Acid Calcium 7.2 L Phosphorus Magnesium Iron TIBC Direct Bilirubin AST ALT Alkaline Phosphatase Total Creatine Kinase CK-MB (CK-2) C-Reactive Protein Total Protein Albumin Vitamin B12 Salicylates Acetaminophen Miscellaneous Test Crossmatch 03/30/19 03/30/19 03/31/19 Unknown Unknown 00:03 WBC RBC Hgb Hct MCV MCH MCHC RDW Plt Count [place] % (Auto) Lymph # Seg Neuts % (Manual) Lymphocytes % (Manual) Nucleated RBC % Seg Neutrophils # Man Lymphocytes # (Manual) Monocytes # (Manual) PT INR APTT D-Dimer POC ABG pH ABG pH POC ABG pCO2 POC ABG pO2 ABG pO2 ABG HCO3 ABG O2 Saturation ABG Base Excess ABG Hemoglobin VBG pH Oxyhemoglobin Sodium Potassium Chloride Carbon Dioxide BUN Creatinine Glucose POC Glucose 188 H Lactic Acid Calcium Phosphorus Magnesium Iron TIBC Direct Bilirubin AST ALT Alkaline Phosphatase Total Creatine Kinase CK-MB (CK-2) C-Reactive Protein Total Protein Albumin Vitamin B12 Salicylates 0.8 L Acetaminophen < 5.0 L Miscellaneous Test Crossmatch 03/31/19 03/31/19 03/31/19 01:18 03:07 03:50 WBC RBC Hgb Hct MCV MCH MCHC RDW Plt Count [place] % (Auto) Lymph # Seg Neuts % (Manual) Lymphocytes % (Manual) Nucleated RBC % Seg Neutrophils # Man Lymphocytes # (Manual) Monocytes # (Manual) PT INR APTT D-Dimer POC ABG pH ABG pH 7.525 H POC ABG pCO2 POC ABG pO2 ABG pO2 178.0 H ABG HCO3 19.5 L ABG O2 Saturation 99.2 H ABG Base Excess -3.1 L ABG Hemoglobin 5.8 L VBG pH Oxyhemoglobin Sodium Potassium Chloride Carbon Dioxide BUN Creatinine Glucose POC Glucose 114 H 107 H Lactic Acid Calcium Phosphorus Magnesium Iron TIBC Direct Bilirubin AST ALT Alkaline Phosphatase Total Creatine Kinase CK-MB (CK-2) C-Reactive Protein Total Protein Albumin Vitamin B12 Salicylates Acetaminophen Miscellaneous Test Crossmatch 03/31/19 03/31/19 03/31/19 03:51 03:51 04:05 WBC RBC 1.89 L Hgb 6.1 L Hct 18.2 L* MCV MCH MCHC RDW 17.7 H Plt Count 89 L [place] % (Auto) Lymph # Seg Neuts % (Manual) 86.0 H Lymphocytes % (Manual) 10.0 L Nucleated RBC % 1.0 H Seg Neutrophils # Man Lymphocytes # (Manual) 0.7 L Monocytes # (Manual) PT INR APTT D-Dimer POC ABG pH ABG pH POC ABG pCO2 POC ABG pO2 ABG pO2 ABG HCO3 ABG O2 Saturation ABG Base Excess ABG Hemoglobin VBG pH Oxyhemoglobin Sodium 151 H Potassium 3.2 L Chloride 119.4 H Carbon Dioxide 17 L BUN 35 H Creatinine Glucose 139 H POC Glucose 153 H Lactic Acid Calcium 7.1 L Phosphorus Magnesium Iron TIBC Direct Bilirubin AST ALT Alkaline Phosphatase Total Creatine Kinase CK-MB (CK-2) C-Reactive Protein Total Protein Albumin Vitamin B12 Salicylates Acetaminophen Miscellaneous Test Crossmatch 03/31/19 03/31/19 03/31/19 05:05 05:35 06:23 WBC RBC Hgb Hct MCV MCH MCHC RDW Plt Count [place] % (Auto) Lymph # Seg Neuts % (Manual) Lymphocytes % (Manual) Nucleated RBC % Seg Neutrophils # Man Lymphocytes # (Manual) Monocytes # (Manual) PT INR APTT D-Dimer POC ABG pH ABG pH POC ABG pCO2 POC ABG pO2 ABG pO2 ABG HCO3 ABG O2 Saturation ABG Base Excess ABG Hemoglobin VBG pH Oxyhemoglobin Sodium Potassium Chloride Carbon Dioxide BUN Creatinine Glucose POC Glucose 176 H 133 H Lactic Acid 3.20 H* Calcium Phosphorus Magnesium Iron TIBC Direct Bilirubin AST ALT Alkaline Phosphatase Total Creatine Kinase CK-MB (CK-2) C-Reactive Protein Total Protein Albumin Vitamin B12 Salicylates Acetaminophen Miscellaneous Test Crossmatch 03/31/19 03/31/19 03/31/19 07:50 07:51 08:20 WBC RBC Hgb Hct MCV MCH MCHC RDW Plt Count [place] % (Auto) Lymph # Seg Neuts % (Manual) Lymphocytes % (Manual) Nucleated RBC % Seg Neutrophils # Man Lymphocytes # (Manual) Monocytes # (Manual) PT INR APTT D-Dimer POC ABG pH ABG pH POC ABG pCO2 POC ABG pO2 ABG pO2 ABG HCO3 ABG O2 Saturation ABG Base Excess ABG Hemoglobin VBG pH Oxyhemoglobin Sodium Potassium Chloride Carbon Dioxide BUN Creatinine Glucose POC Glucose 135 H Lactic Acid 3.30 H* Calcium Phosphorus Magnesium Iron 26 L TIBC 193 L Direct Bilirubin AST ALT Alkaline Phosphatase Total Creatine Kinase CK-MB (CK-2) C-Reactive Protein Total Protein Albumin Vitamin B12 Salicylates Acetaminophen Miscellaneous Test Crossmatch 03/31/19 03/31/19 03/31/19 08:20 08:20 09:06 WBC RBC Hgb Hct MCV MCH MCHC RDW Plt Count [place] % (Auto) Lymph # Seg Neuts % (Manual) Lymphocytes % (Manual) Nucleated RBC % Seg Neutrophils # Man Lymphocytes # (Manual) Monocytes # (Manual) PT INR APTT D-Dimer POC ABG pH ABG pH POC ABG pCO2 POC ABG pO2 ABG pO2 ABG HCO3 ABG O2 Saturation ABG Base Excess ABG Hemoglobin VBG pH Oxyhemoglobin Sodium 153 H Potassium 3.0 L Chloride 118.9 H Carbon Dioxide 18 L BUN 37 H Creatinine Glucose 132 H POC Glucose 145 H Lactic Acid Calcium 7.1 L Phosphorus Magnesium Iron TIBC Direct Bilirubin AST ALT Alkaline Phosphatase Total Creatine Kinase CK-MB (CK-2) C-Reactive Protein Total Protein Albumin Vitamin B12 > 2000 H Salicylates Acetaminophen Miscellaneous Test Crossmatch 03/31/19 03/31/19 03/31/19 10:47 11:49 13:04 WBC RBC Hgb Hct MCV MCH MCHC RDW Plt Count [place] % (Auto) Lymph # Seg Neuts % (Manual) Lymphocytes % (Manual) Nucleated RBC % Seg Neutrophils # Man Lymphocytes # (Manual) Monocytes # (Manual) PT INR APTT D-Dimer POC ABG pH ABG pH POC ABG pCO2 POC ABG pO2 ABG pO2 ABG HCO3 ABG O2 Saturation ABG Base Excess ABG Hemoglobin VBG pH Oxyhemoglobin Sodium Potassium Chloride Carbon Dioxide BUN Creatinine Glucose POC Glucose 153 H 174 H 214 H Lactic Acid Calcium Phosphorus Magnesium Iron TIBC Direct Bilirubin AST ALT Alkaline Phosphatase Total Creatine Kinase CK-MB (CK-2) C-Reactive Protein Total Protein Albumin Vitamin B12 Salicylates Acetaminophen Miscellaneous Test Crossmatch 03/31/19 03/31/19 03/31/19 13:42 15:08 16:08 WBC RBC Hgb Hct MCV MCH MCHC RDW Plt Count [place] % (Auto) Lymph # Seg Neuts % (Manual) Lymphocytes % (Manual) Nucleated RBC % Seg Neutrophils # Man Lymphocytes # (Manual) Monocytes # (Manual) PT INR APTT D-Dimer POC ABG pH ABG pH POC ABG pCO2 POC ABG pO2 ABG pO2 ABG HCO3 ABG O2 Saturation ABG Base Excess ABG Hemoglobin VBG pH Oxyhemoglobin Sodium Potassium Chloride Carbon Dioxide BUN Creatinine Glucose POC Glucose 186 H 136 H 150 H Lactic Acid Calcium Phosphorus Magnesium Iron TIBC Direct Bilirubin AST ALT Alkaline Phosphatase Total Creatine Kinase CK-MB (CK-2) C-Reactive Protein Total Protein Albumin Vitamin B12 Salicylates Acetaminophen Miscellaneous Test Crossmatch 03/31/19 03/31/19 03/31/19 17:11 17:30 17:30 WBC RBC Hgb 7.7 L Hct 23.0 L MCV MCH MCHC RDW Plt Count [place] % (Auto) Lymph # Seg Neuts % (Manual) Lymphocytes % (Manual) Nucleated RBC % Seg Neutrophils # Man Lymphocytes # (Manual) Monocytes # (Manual) PT INR APTT D-Dimer POC ABG pH ABG pH POC ABG pCO2 POC ABG pO2 ABG pO2 ABG HCO3 ABG O2 Saturation ABG Base Excess ABG Hemoglobin VBG pH Oxyhemoglobin Sodium 153 H Potassium 3.5 L Chloride 119.3 H Carbon Dioxide 20 L BUN 34 H Creatinine Glucose 162 H POC Glucose 140 H Lactic Acid Calcium 7.6 L Phosphorus Magnesium Iron TIBC Direct Bilirubin AST ALT Alkaline Phosphatase Total Creatine Kinase CK-MB (CK-2) C-Reactive Protein Total Protein Albumin Vitamin B12 Salicylates Acetaminophen Miscellaneous Test Crossmatch 03/31/19 03/31/19 03/31/19 17:59 18:58 20:28 WBC RBC Hgb Hct MCV MCH MCHC RDW Plt Count [place] % (Auto) Lymph # Seg Neuts % (Manual) Lymphocytes % (Manual) Nucleated RBC % Seg Neutrophils # Man Lymphocytes # (Manual) Monocytes # (Manual) PT INR APTT D-Dimer POC ABG pH ABG pH POC ABG pCO2 POC ABG pO2 ABG pO2 ABG HCO3 ABG O2 Saturation ABG Base Excess ABG Hemoglobin VBG pH Oxyhemoglobin Sodium Potassium Chloride Carbon Dioxide BUN Creatinine Glucose POC Glucose 156 H 152 H 138 H Lactic Acid Calcium Phosphorus Magnesium Iron TIBC Direct Bilirubin AST ALT Alkaline Phosphatase Total Creatine Kinase CK-MB (CK-2) C-Reactive Protein Total Protein Albumin Vitamin B12 Salicylates Acetaminophen Miscellaneous Test Crossmatch 03/31/19 03/31/19 03/31/19 21:09 22:15 23:10 WBC RBC Hgb Hct MCV MCH MCHC RDW Plt Count [place] % (Auto) Lymph # Seg Neuts % (Manual) Lymphocytes % (Manual) Nucleated RBC % Seg Neutrophils # Man Lymphocytes # (Manual) Monocytes # (Manual) PT INR APTT D-Dimer POC ABG pH ABG pH POC ABG pCO2 POC ABG pO2 ABG pO2 ABG HCO3 ABG O2 Saturation ABG Base Excess ABG Hemoglobin VBG pH Oxyhemoglobin Sodium Potassium Chloride Carbon Dioxide BUN Creatinine Glucose POC Glucose 136 H 137 H 148 H Lactic Acid Calcium Phosphorus Magnesium Iron TIBC Direct Bilirubin AST ALT Alkaline Phosphatase Total Creatine Kinase CK-MB (CK-2) C-Reactive Protein Total Protein Albumin Vitamin B12 Salicylates Acetaminophen Miscellaneous Test Crossmatch 04/01/19 04/01/19 04/01/19 00:05 01:17 02:11 WBC RBC Hgb Hct MCV MCH MCHC RDW Plt Count [place] % (Auto) Lymph # Seg Neuts % (Manual) Lymphocytes % (Manual) Nucleated RBC % Seg Neutrophils # Man Lymphocytes # (Manual) Monocytes # (Manual) PT INR APTT D-Dimer POC ABG pH ABG pH POC ABG pCO2 POC ABG pO2 ABG pO2 ABG HCO3 ABG O2 Saturation ABG Base Excess ABG Hemoglobin VBG pH Oxyhemoglobin Sodium Potassium Chloride Carbon Dioxide BUN Creatinine Glucose POC Glucose 143 H 151 H 155 H Lactic Acid Calcium Phosphorus Magnesium Iron TIBC Direct Bilirubin AST ALT Alkaline Phosphatase Total Creatine Kinase CK-MB (CK-2) C-Reactive Protein Total Protein Albumin Vitamin B12 Salicylates Acetaminophen Miscellaneous Test Crossmatch 04/01/19 04/01/19 04/01/19 03:12 04:03 04:16 WBC RBC Hgb Hct MCV MCH MCHC RDW Plt Count [place] % (Auto) Lymph # Seg Neuts % (Manual) Lymphocytes % (Manual) Nucleated RBC % Seg Neutrophils # Man Lymphocytes # (Manual) Monocytes # (Manual) PT INR APTT D-Dimer POC ABG pH ABG pH POC ABG pCO2 POC ABG pO2 ABG pO2 ABG HCO3 ABG O2 Saturation ABG Base Excess ABG Hemoglobin VBG pH Oxyhemoglobin Sodium Potassium Chloride Carbon Dioxide BUN Creatinine Glucose POC Glucose 140 H 143 H 142 H Lactic Acid Calcium Phosphorus Magnesium Iron TIBC Direct Bilirubin AST ALT Alkaline Phosphatase Total Creatine Kinase CK-MB (CK-2) C-Reactive Protein Total Protein Albumin Vitamin B12 Salicylates Acetaminophen Miscellaneous Test Crossmatch 04/01/19 04/01/19 04/01/19 05:01 05:01 05:08 WBC RBC 2.05 L Hgb 6.8 L Hct 20.5 L MCV 100 H MCH 33 H MCHC RDW 17.7 H Plt Count 53 L [place] % (Auto) Lymph # Seg Neuts % (Manual) 71.0 H Lymphocytes % (Manual) Nucleated RBC % Seg Neutrophils # Man Lymphocytes # (Manual) Monocytes # (Manual) PT INR APTT D-Dimer POC ABG pH ABG pH POC ABG pCO2 POC ABG pO2 ABG pO2 ABG HCO3 ABG O2 Saturation ABG Base Excess ABG Hemoglobin VBG pH Oxyhemoglobin Sodium Potassium Chloride Carbon Dioxide BUN Creatinine Glucose POC Glucose 119 H Lactic Acid Calcium Phosphorus Magnesium Iron TIBC Direct Bilirubin 0.3 H AST 4601 H ALT 1542 H Alkaline Phosphatase 185 H Total Creatine Kinase CK-MB (CK-2) C-Reactive Protein Total Protein 3.8 L Albumin 1.6 L Vitamin B12 Salicylates Acetaminophen Miscellaneous Test Crossmatch 04/01/19 04/01/19 04/01/19 05:23 06:37 08:15 WBC RBC Hgb Hct MCV MCH MCHC RDW Plt Count [place] % (Auto) Lymph # Seg Neuts % (Manual) Lymphocytes % (Manual) Nucleated RBC % Seg Neutrophils # Man Lymphocytes # (Manual) Monocytes # (Manual) PT INR APTT D-Dimer POC ABG pH ABG pH POC ABG pCO2 POC ABG pO2 ABG pO2 ABG HCO3 ABG O2 Saturation ABG Base Excess ABG Hemoglobin VBG pH Oxyhemoglobin Sodium Potassium Chloride Carbon Dioxide BUN Creatinine Glucose POC Glucose 115 H 124 H 138 H Lactic Acid Calcium Phosphorus Magnesium Iron TIBC Direct Bilirubin AST ALT Alkaline Phosphatase Total Creatine Kinase CK-MB (CK-2) C-Reactive Protein Total Protein Albumin Vitamin B12 Salicylates Acetaminophen Miscellaneous Test Crossmatch 04/01/19 04/01/19 04/01/19 09:50 10:10 10:31 WBC RBC Hgb 6.5 L Hct 19.2 L* MCV MCH MCHC RDW Plt Count [place] % (Auto) Lymph # Seg Neuts % (Manual) Lymphocytes % (Manual) Nucleated RBC % Seg Neutrophils # Man Lymphocytes # (Manual) Monocytes # (Manual) PT INR APTT D-Dimer POC ABG pH ABG pH POC ABG pCO2 POC ABG pO2 ABG pO2 ABG HCO3 ABG O2 Saturation ABG Base Excess ABG Hemoglobin VBG pH Oxyhemoglobin Sodium 149 H Potassium 3.5 L Chloride 119.9 H Carbon Dioxide 21 L BUN 33 H Creatinine 0.5 L Glucose 142 H POC Glucose 185 H Lactic Acid Calcium 7.3 L Phosphorus Magnesium Iron TIBC Direct Bilirubin AST 3686 H ALT 1440 H Alkaline Phosphatase 185 H Total Creatine Kinase CK-MB (CK-2) C-Reactive Protein Total Protein 3.7 L Albumin 1.8 L Vitamin B12 Salicylates Acetaminophen Miscellaneous Test Crossmatch 04/01/19 04/01/19 04/01/19 11:35 13:05 14:35 WBC RBC Hgb Hct MCV MCH MCHC RDW Plt Count [place] % (Auto) Lymph # Seg Neuts % (Manual) Lymphocytes % (Manual) Nucleated RBC % Seg Neutrophils # Man Lymphocytes # (Manual) Monocytes # (Manual) PT INR APTT D-Dimer POC ABG pH ABG pH POC ABG pCO2 POC ABG pO2 ABG pO2 ABG HCO3 ABG O2 Saturation ABG Base Excess ABG Hemoglobin VBG pH Oxyhemoglobin Sodium Potassium Chloride Carbon Dioxide BUN Creatinine Glucose POC Glucose 201 H 169 H 134 H Lactic Acid Calcium Phosphorus Magnesium Iron TIBC Direct Bilirubin AST ALT Alkaline Phosphatase Total Creatine Kinase CK-MB (CK-2) C-Reactive Protein Total Protein Albumin Vitamin B12 Salicylates Acetaminophen Miscellaneous Test Crossmatch 04/01/19 04/01/19 04/01/19 17:13 17:14 18:30 WBC RBC Hgb Hct MCV MCH MCHC RDW Plt Count [place] % (Auto) Lymph # Seg Neuts % (Manual) Lymphocytes % (Manual) Nucleated RBC % Seg Neutrophils # Man Lymphocytes # (Manual) Monocytes # (Manual) PT INR APTT D-Dimer 5203.68 H POC ABG pH ABG pH POC ABG pCO2 POC ABG pO2 ABG pO2 ABG HCO3 ABG O2 Saturation ABG Base Excess ABG Hemoglobin VBG pH Oxyhemoglobin Sodium Potassium Chloride Carbon Dioxide BUN Creatinine Glucose POC Glucose 69 L 128 H Lactic Acid Calcium Phosphorus Magnesium Iron TIBC Direct Bilirubin AST ALT Alkaline Phosphatase Total Creatine Kinase CK-MB (CK-2) C-Reactive Protein Total Protein Albumin Vitamin B12 Salicylates Acetaminophen Miscellaneous Test Crossmatch 04/01/19 04/01/19 04/02/19 22:50 Unknown 03:40 WBC RBC Hgb Hct MCV MCH MCHC RDW Plt Count [place] % (Auto) Lymph # Seg Neuts % (Manual) Lymphocytes % (Manual) Nucleated RBC % Seg Neutrophils # Man Lymphocytes # (Manual) Monocytes # (Manual) PT INR APTT D-Dimer POC ABG pH ABG pH POC ABG pCO2 POC ABG pO2 ABG pO2 78.3 L 142.8 H ABG HCO3 15.5 L ABG O2 Saturation ABG Base Excess -3.5 L -8.2 L ABG Hemoglobin 6.8 L 8.2 L VBG pH Oxyhemoglobin 94.3 L Sodium Potassium Chloride Carbon Dioxide BUN Creatinine Glucose POC Glucose 342 H Lactic Acid Calcium Phosphorus Magnesium Iron TIBC Direct Bilirubin AST ALT Alkaline Phosphatase Total Creatine Kinase CK-MB (CK-2) C-Reactive Protein Total Protein Albumin Vitamin B12 Salicylates Acetaminophen Miscellaneous Test Crossmatch 04/02/19 04/02/19 04/02/19 03:49 06:50 07:48 WBC RBC 2.65 L Hgb 8.6 L Hct 25.1 L MCV MCH MCHC RDW 17.6 H Plt Count 48 L [place] % (Auto) Lymph # Seg Neuts % (Manual) Lymphocytes % (Manual) Nucleated RBC % Seg Neutrophils # Man Lymphocytes # (Manual) Monocytes # (Manual) PT INR APTT D-Dimer POC ABG pH ABG pH POC ABG pCO2 POC ABG pO2 ABG pO2 ABG HCO3 ABG O2 Saturation ABG Base Excess ABG Hemoglobin VBG pH Oxyhemoglobin Sodium Potassium Chloride Carbon Dioxide BUN Creatinine Glucose POC Glucose 247 H 200 H Lactic Acid Calcium Phosphorus Magnesium Iron TIBC Direct Bilirubin AST ALT Alkaline Phosphatase Total Creatine Kinase CK-MB (CK-2) C-Reactive Protein Total Protein Albumin Vitamin B12 Salicylates Acetaminophen Miscellaneous Test Crossmatch 04/02/19 04/02/19 04/02/19 07:48 11:18 14:07 WBC RBC Hgb Hct MCV MCH MCHC RDW Plt Count [place] % (Auto) Lymph # Seg Neuts % (Manual) Lymphocytes % (Manual) Nucleated RBC % Seg Neutrophils # Man Lymphocytes # (Manual) Monocytes # (Manual) PT INR APTT D-Dimer POC ABG pH ABG pH POC ABG pCO2 POC ABG pO2 ABG pO2 ABG HCO3 ABG O2 Saturation ABG Base Excess ABG Hemoglobin VBG pH Oxyhemoglobin Sodium Potassium 3.5 L Chloride 115.7 H Carbon Dioxide 19 L BUN 29 H Creatinine 0.5 L Glucose 159 H POC Glucose 154 H 149 H Lactic Acid Calcium 7.5 L Phosphorus Magnesium Iron TIBC Direct Bilirubin AST 1418 H ALT 1134 H Alkaline Phosphatase 242 H Total Creatine Kinase CK-MB (CK-2) C-Reactive Protein Total Protein 4.2 L Albumin 2.1 L Vitamin B12 Salicylates Acetaminophen Miscellaneous Test Crossmatch 04/02/19 04/02/19 04/02/19 18:09 19:46 23:05 WBC RBC Hgb Hct MCV MCH MCHC RDW Plt Count [place] % (Auto) Lymph # Seg Neuts % (Manual) Lymphocytes % (Manual) Nucleated RBC % Seg Neutrophils # Man Lymphocytes # (Manual) Monocytes # (Manual) PT INR APTT D-Dimer POC ABG pH ABG pH POC ABG pCO2 POC ABG pO2 ABG pO2 ABG HCO3 ABG O2 Saturation ABG Base Excess ABG Hemoglobin VBG pH Oxyhemoglobin Sodium Potassium Chloride Carbon Dioxide BUN Creatinine Glucose POC Glucose 188 H 209 H 247 H Lactic Acid Calcium Phosphorus Magnesium Iron TIBC Direct Bilirubin AST ALT Alkaline Phosphatase Total Creatine Kinase CK-MB (CK-2) C-Reactive Protein Total Protein Albumin Vitamin B12 Salicylates Acetaminophen Miscellaneous Test Crossmatch 04/03/19 04/03/19 04/03/19 02:58 03:40 03:40 WBC RBC 2.87 L Hgb 9.3 L Hct 27.0 L MCV MCH MCHC RDW 17.2 H Plt Count 65 L [place] % (Auto) 9.8 H Lymph # 1.1 L Seg Neuts % (Manual) Lymphocytes % (Manual) Nucleated RBC % Seg Neutrophils # Man Lymphocytes # (Manual) Monocytes # (Manual) PT INR APTT D-Dimer POC ABG pH ABG pH POC ABG pCO2 POC ABG pO2 ABG pO2 ABG HCO3 ABG O2 Saturation ABG Base Excess ABG Hemoglobin VBG pH Oxyhemoglobin Sodium 147 H Potassium 3.5 L Chloride 116.7 H Carbon Dioxide 18 L BUN Creatinine 0.4 L Glucose 150 H POC Glucose 166 H Lactic Acid Calcium 8.1 L Phosphorus 2.20 L Magnesium Iron TIBC Direct Bilirubin AST 594 H ALT 861 H Alkaline Phosphatase 299 H Total Creatine Kinase CK-MB (CK-2) C-Reactive Protein Total Protein 4.4 L Albumin 2.1 L Vitamin B12 Salicylates Acetaminophen Miscellaneous Test Crossmatch 04/03/19 04/03/19 04/03/19 05:35 07:02 08:23 WBC RBC Hgb Hct MCV MCH MCHC RDW Plt Count [place] % (Auto) Lymph # Seg Neuts % (Manual) Lymphocytes % (Manual) Nucleated RBC % Seg Neutrophils # Man Lymphocytes # (Manual) Monocytes # (Manual) PT INR APTT D-Dimer POC ABG pH ABG pH POC ABG pCO2 POC ABG pO2 ABG pO2 97.7 H ABG HCO3 19.3 L ABG O2 Saturation ABG Base Excess -5.0 L ABG Hemoglobin 8.0 L VBG pH Oxyhemoglobin Sodium Potassium Chloride Carbon Dioxide BUN Creatinine Glucose POC Glucose 135 H 132 H Lactic Acid Calcium Phosphorus Magnesium Iron TIBC Direct Bilirubin AST ALT Alkaline Phosphatase Total Creatine Kinase CK-MB (CK-2) C-Reactive Protein Total Protein Albumin Vitamin B12 Salicylates Acetaminophen Miscellaneous Test Crossmatch 04/03/19 04/03/19 04/03/19 11:58 15:11 17:53 WBC RBC Hgb Hct MCV MCH MCHC RDW Plt Count [place] % (Auto) Lymph # Seg Neuts % (Manual) Lymphocytes % (Manual) Nucleated RBC % Seg Neutrophils # Man Lymphocytes # (Manual) Monocytes # (Manual) PT INR APTT D-Dimer POC ABG pH ABG pH POC ABG pCO2 POC ABG pO2 ABG pO2 ABG HCO3 ABG O2 Saturation ABG Base Excess ABG Hemoglobin VBG pH Oxyhemoglobin Sodium Potassium Chloride Carbon Dioxide BUN Creatinine Glucose POC Glucose 179 H 213 H 223 H Lactic Acid Calcium Phosphorus Magnesium Iron TIBC Direct Bilirubin AST ALT Alkaline Phosphatase Total Creatine Kinase CK-MB (CK-2) C-Reactive Protein Total Protein Albumin Vitamin B12 Salicylates Acetaminophen Miscellaneous Test Crossmatch 04/03/19 04/04/19 04/04/19 23:06 02:36 06:41 WBC RBC Hgb Hct MCV MCH MCHC RDW Plt Count [place] % (Auto) Lymph # Seg Neuts % (Manual) Lymphocytes % (Manual) Nucleated RBC % Seg Neutrophils # Man Lymphocytes # (Manual) Monocytes # (Manual) PT INR APTT D-Dimer POC ABG pH ABG pH POC ABG pCO2 POC ABG pO2 ABG pO2 ABG HCO3 ABG O2 Saturation ABG Base Excess ABG Hemoglobin VBG pH Oxyhemoglobin Sodium Potassium Chloride Carbon Dioxide BUN Creatinine Glucose POC Glucose 189 H 157 H 131 H Lactic Acid Calcium Phosphorus Magnesium Iron TIBC Direct Bilirubin AST ALT Alkaline Phosphatase Total Creatine Kinase CK-MB (CK-2) C-Reactive Protein Total Protein Albumin Vitamin B12 Salicylates Acetaminophen Miscellaneous Test Crossmatch 04/04/19 04/04/19 04/04/19 11:42 15:45 18:21 WBC RBC Hgb Hct MCV MCH MCHC RDW Plt Count [place] % (Auto) Lymph # Seg Neuts % (Manual) Lymphocytes % (Manual) Nucleated RBC % Seg Neutrophils # Man Lymphocytes # (Manual) Monocytes # (Manual) PT INR APTT D-Dimer POC ABG pH ABG pH POC ABG pCO2 POC ABG pO2 ABG pO2 ABG HCO3 ABG O2 Saturation ABG Base Excess ABG Hemoglobin VBG pH Oxyhemoglobin Sodium Potassium Chloride Carbon Dioxide BUN Creatinine Glucose POC Glucose 233 H 236 H 255 H Lactic Acid Calcium Phosphorus Magnesium Iron TIBC Direct Bilirubin AST ALT Alkaline Phosphatase Total Creatine Kinase CK-MB (CK-2) C-Reactive Protein Total Protein Albumin Vitamin B12 Salicylates Acetaminophen Miscellaneous Test Crossmatch 04/04/19 04/05/19 04/05/19 21:21 03:06 06:05 WBC RBC 2.68 L Hgb 8.5 L Hct 26.3 L MCV 98 H MCH MCHC RDW 17.4 H Plt Count [place] % (Auto) Lymph # Seg Neuts % (Manual) Lymphocytes % (Manual) Nucleated RBC % Seg Neutrophils # Man Lymphocytes # (Manual) Monocytes # (Manual) PT INR APTT D-Dimer POC ABG pH ABG pH POC ABG pCO2 POC ABG pO2 ABG pO2 ABG HCO3 ABG O2 Saturation ABG Base Excess ABG Hemoglobin VBG pH Oxyhemoglobin Sodium Potassium Chloride Carbon Dioxide BUN Creatinine Glucose POC Glucose 132 H 161 H Lactic Acid Calcium Phosphorus Magnesium Iron TIBC Direct Bilirubin AST ALT Alkaline Phosphatase Total Creatine Kinase CK-MB (CK-2) C-Reactive Protein Total Protein Albumin Vitamin B12 Salicylates Acetaminophen Miscellaneous Test Crossmatch 04/05/19 04/05/19 04/05/19 06:05 06:49 10:23 WBC RBC Hgb Hct MCV MCH MCHC RDW Plt Count [place] % (Auto) Lymph # Seg Neuts % (Manual) Lymphocytes % (Manual) Nucleated RBC % Seg Neutrophils # Man Lymphocytes # (Manual) Monocytes # (Manual) PT INR APTT D-Dimer POC ABG pH ABG pH POC ABG pCO2 POC ABG pO2 ABG pO2 ABG HCO3 ABG O2 Saturation ABG Base Excess ABG Hemoglobin VBG pH Oxyhemoglobin Sodium Potassium Chloride 112.5 H Carbon Dioxide BUN Creatinine 0.2 L Glucose 237 H POC Glucose 283 H 296 H Lactic Acid Calcium 7.9 L Phosphorus Magnesium Iron TIBC Direct Bilirubin AST ALT Alkaline Phosphatase Total Creatine Kinase CK-MB (CK-2) C-Reactive Protein Total Protein Albumin Vitamin B12 Salicylates Acetaminophen Miscellaneous Test Crossmatch 04/05/19 04/05/19 04/05/19 14:46 18:19 20:35 WBC RBC Hgb Hct MCV MCH MCHC RDW Plt Count [place] % (Auto) Lymph # Seg Neuts % (Manual) Lymphocytes % (Manual) Nucleated RBC % Seg Neutrophils # Man Lymphocytes # (Manual) Monocytes # (Manual) PT INR APTT D-Dimer POC ABG pH ABG pH POC ABG pCO2 POC ABG pO2 ABG pO2 ABG HCO3 ABG O2 Saturation ABG Base Excess ABG Hemoglobin VBG pH Oxyhemoglobin Sodium Potassium Chloride Carbon Dioxide BUN Creatinine Glucose POC Glucose 225 H 259 H 236 H Lactic Acid Calcium Phosphorus Magnesium Iron TIBC Direct Bilirubin AST ALT Alkaline Phosphatase Total Creatine Kinase CK-MB (CK-2) C-Reactive Protein Total Protein Albumin Vitamin B12 Salicylates Acetaminophen Miscellaneous Test Crossmatch 04/05/19 04/06/19 04/06/19 23:11 00:06 03:14 WBC RBC Hgb Hct MCV MCH MCHC RDW Plt Count [place] % (Auto) Lymph # Seg Neuts % (Manual) Lymphocytes % (Manual) Nucleated RBC % Seg Neutrophils # Man Lymphocytes # (Manual) Monocytes # (Manual) PT INR APTT D-Dimer 4526.86 H POC ABG pH ABG pH POC ABG pCO2 POC ABG pO2 ABG pO2 ABG HCO3 ABG O2 Saturation ABG Base Excess ABG Hemoglobin VBG pH Oxyhemoglobin Sodium Potassium Chloride Carbon Dioxide BUN Creatinine Glucose POC Glucose 205 H 228 H Lactic Acid Calcium Phosphorus Magnesium Iron TIBC Direct Bilirubin AST ALT Alkaline Phosphatase Total Creatine Kinase CK-MB (CK-2) C-Reactive Protein Total Protein Albumin Vitamin B12 Salicylates Acetaminophen Miscellaneous Test Crossmatch 04/06/19 04/06/19 04/06/19 05:20 05:20 07:57 WBC 15.1 H RBC 2.90 L Hgb 9.1 L Hct 28.0 L MCV MCH MCHC RDW 17.3 H Plt Count [place] % (Auto) Lymph # Seg Neuts % (Manual) Lymphocytes % (Manual) Nucleated RBC % Seg Neutrophils # Man Lymphocytes # (Manual) Monocytes # (Manual) PT INR APTT D-Dimer POC ABG pH ABG pH POC ABG pCO2 POC ABG pO2 ABG pO2 ABG HCO3 ABG O2 Saturation ABG Base Excess ABG Hemoglobin VBG pH Oxyhemoglobin Sodium Potassium Chloride Carbon Dioxide BUN Creatinine 0.2 L Glucose 161 H POC Glucose 191 H Lactic Acid Calcium 8.0 L Phosphorus Magnesium Iron TIBC Direct Bilirubin AST ALT Alkaline Phosphatase Total Creatine Kinase CK-MB (CK-2) C-Reactive Protein Total Protein Albumin Vitamin B12 Salicylates Acetaminophen Miscellaneous Test Crossmatch 04/06/19 04/06/19 04/06/19 12:09 18:24 22:07 WBC RBC Hgb Hct MCV MCH MCHC RDW Plt Count [place] % (Auto) Lymph # Seg Neuts % (Manual) Lymphocytes % (Manual) Nucleated RBC % Seg Neutrophils # Man Lymphocytes # (Manual) Monocytes # (Manual) PT INR APTT D-Dimer POC ABG pH ABG pH POC ABG pCO2 POC ABG pO2 ABG pO2 ABG HCO3 ABG O2 Saturation ABG Base Excess ABG Hemoglobin VBG pH Oxyhemoglobin Sodium Potassium Chloride Carbon Dioxide BUN Creatinine Glucose POC Glucose 143 H 161 H 140 H Lactic Acid Calcium Phosphorus Magnesium Iron TIBC Direct Bilirubin AST ALT Alkaline Phosphatase Total Creatine Kinase CK-MB (CK-2) C-Reactive Protein Total Protein Albumin Vitamin B12 Salicylates Acetaminophen Miscellaneous Test Crossmatch 04/07/19 04/07/19 04/07/19 03:00 04:30 04:30 WBC 13.0 H RBC 2.65 L Hgb 8.3 L Hct 25.5 L MCV MCH MCHC RDW 17.0 H Plt Count [place] % (Auto) Lymph # Seg Neuts % (Manual) Lymphocytes % (Manual) Nucleated RBC % Seg Neutrophils # Man Lymphocytes # (Manual) Monocytes # (Manual) PT INR APTT D-Dimer POC ABG pH ABG pH POC ABG pCO2 POC ABG pO2 ABG pO2 ABG HCO3 ABG O2 Saturation ABG Base Excess ABG Hemoglobin VBG pH Oxyhemoglobin Sodium Potassium Chloride Carbon Dioxide BUN Creatinine 0.2 L Glucose 208 H POC Glucose 224 H Lactic Acid Calcium 7.7 L Phosphorus Magnesium Iron TIBC Direct Bilirubin AST ALT Alkaline Phosphatase Total Creatine Kinase CK-MB (CK-2) C-Reactive Protein Total Protein Albumin Vitamin B12 Salicylates Acetaminophen Miscellaneous Test Crossmatch 04/07/19 04/07/19 04/07/19 05:47 08:27 10:33 WBC RBC Hgb Hct MCV MCH MCHC RDW Plt Count [place] % (Auto) Lymph # Seg Neuts % (Manual) Lymphocytes % (Manual) Nucleated RBC % Seg Neutrophils # Man Lymphocytes # (Manual) Monocytes # (Manual) PT INR APTT D-Dimer POC ABG pH ABG pH POC ABG pCO2 POC ABG pO2 ABG pO2 ABG HCO3 ABG O2 Saturation ABG Base Excess ABG Hemoglobin VBG pH Oxyhemoglobin Sodium Potassium Chloride Carbon Dioxide BUN Creatinine Glucose POC Glucose 225 H 176 H 207 H Lactic Acid Calcium Phosphorus Magnesium Iron TIBC Direct Bilirubin AST ALT Alkaline Phosphatase Total Creatine Kinase CK-MB (CK-2) C-Reactive Protein Total Protein Albumin Vitamin B12 Salicylates Acetaminophen Miscellaneous Test Crossmatch 04/07/19 04/07/19 04/07/19 14:13 18:32 22:42 WBC RBC Hgb Hct MCV MCH MCHC RDW Plt Count [place] % (Auto) Lymph # Seg Neuts % (Manual) Lymphocytes % (Manual) Nucleated RBC % Seg Neutrophils # Man Lymphocytes # (Manual) Monocytes # (Manual) PT INR APTT D-Dimer POC ABG pH ABG pH POC ABG pCO2 POC ABG pO2 ABG pO2 ABG HCO3 ABG O2 Saturation ABG Base Excess ABG Hemoglobin VBG pH Oxyhemoglobin Sodium Potassium Chloride Carbon Dioxide BUN Creatinine Glucose POC Glucose 219 H 227 H 238 H Lactic Acid Calcium Phosphorus Magnesium Iron TIBC Direct Bilirubin AST ALT Alkaline Phosphatase Total Creatine Kinase CK-MB (CK-2) C-Reactive Protein Total Protein Albumin Vitamin B12 Salicylates Acetaminophen Miscellaneous Test Crossmatch 04/08/19 04/08/19 04/08/19 02:31 05:37 14:10 WBC RBC Hgb Hct MCV MCH MCHC RDW Plt Count [place] % (Auto) Lymph # Seg Neuts % (Manual) Lymphocytes % (Manual) Nucleated RBC % Seg Neutrophils # Man Lymphocytes # (Manual) Monocytes # (Manual) PT INR APTT D-Dimer POC ABG pH ABG pH POC ABG pCO2 POC ABG pO2 ABG pO2 ABG HCO3 ABG O2 Saturation ABG Base Excess ABG Hemoglobin VBG pH Oxyhemoglobin Sodium Potassium Chloride Carbon Dioxide BUN Creatinine Glucose POC Glucose 194 H 194 H 139 H Lactic Acid Calcium Phosphorus Magnesium Iron TIBC Direct Bilirubin AST ALT Alkaline Phosphatase Total Creatine Kinase CK-MB (CK-2) C-Reactive Protein Total Protein Albumin Vitamin B12 Salicylates Acetaminophen Miscellaneous Test Crossmatch 04/08/19 04/08/19 04/09/19 17:43 23:20 03:28 WBC RBC Hgb Hct MCV MCH MCHC RDW Plt Count [place] % (Auto) Lymph # Seg Neuts % (Manual) Lymphocytes % (Manual) Nucleated RBC % Seg Neutrophils # Man Lymphocytes # (Manual) Monocytes # (Manual) PT INR APTT D-Dimer POC ABG pH ABG pH POC ABG pCO2 POC ABG pO2 ABG pO2 ABG HCO3 ABG O2 Saturation ABG Base Excess ABG Hemoglobin VBG pH Oxyhemoglobin Sodium Potassium Chloride Carbon Dioxide BUN Creatinine Glucose POC Glucose 261 H 277 H 301 H Lactic Acid Calcium Phosphorus Magnesium Iron TIBC Direct Bilirubin AST ALT Alkaline Phosphatase Total Creatine Kinase CK-MB (CK-2) C-Reactive Protein Total Protein Albumin Vitamin B12 Salicylates Acetaminophen Miscellaneous Test Crossmatch 04/09/19 04/09/19 04/09/19 05:35 05:35 05:35 WBC RBC 2.78 L Hgb 9.0 L Hct 26.7 L MCV MCH MCHC RDW 17.0 H Plt Count [place] % (Auto) Lymph # Seg Neuts % (Manual) Lymphocytes % (Manual) Nucleated RBC % Seg Neutrophils # Man Lymphocytes # (Manual) Monocytes # (Manual) PT INR APTT D-Dimer POC ABG pH ABG pH POC ABG pCO2 POC ABG pO2 ABG pO2 ABG HCO3 ABG O2 Saturation ABG Base Excess ABG Hemoglobin VBG pH Oxyhemoglobin Sodium Potassium Chloride Carbon Dioxide 31 H BUN Creatinine 0.2 L Glucose 218 H POC Glucose 240 H Lactic Acid Calcium Phosphorus Magnesium Iron TIBC Direct Bilirubin AST ALT Alkaline Phosphatase Total Creatine Kinase CK-MB (CK-2) C-Reactive Protein Total Protein Albumin Vitamin B12 Salicylates Acetaminophen Miscellaneous Test Crossmatch 04/09/19 04/09/19 04/09/19 09:01 12:23 17:33 WBC RBC Hgb Hct MCV MCH MCHC RDW Plt Count [place] % (Auto) Lymph # Seg Neuts % (Manual) Lymphocytes % (Manual) Nucleated RBC % Seg Neutrophils # Man Lymphocytes # (Manual) Monocytes # (Manual) PT INR APTT D-Dimer POC ABG pH ABG pH POC ABG pCO2 POC ABG pO2 ABG pO2 ABG HCO3 ABG O2 Saturation ABG Base Excess ABG Hemoglobin VBG pH Oxyhemoglobin Sodium Potassium Chloride Carbon Dioxide BUN Creatinine Glucose POC Glucose 160 H 162 H 149 H Lactic Acid Calcium Phosphorus Magnesium Iron TIBC Direct Bilirubin AST ALT Alkaline Phosphatase Total Creatine Kinase CK-MB (CK-2) C-Reactive Protein Total Protein Albumin Vitamin B12 Salicylates Acetaminophen Miscellaneous Test Crossmatch 04/09/19 04/09/19 04/10/19 21:26 22:28 03:16 WBC RBC Hgb Hct MCV MCH MCHC RDW Plt Count [place] % (Auto) Lymph # Seg Neuts % (Manual) Lymphocytes % (Manual) Nucleated RBC % Seg Neutrophils # Man Lymphocytes # (Manual) Monocytes # (Manual) PT INR APTT D-Dimer POC ABG pH ABG pH POC ABG pCO2 POC ABG pO2 ABG pO2 ABG HCO3 ABG O2 Saturation ABG Base Excess ABG Hemoglobin VBG pH Oxyhemoglobin Sodium Potassium Chloride Carbon Dioxide BUN Creatinine Glucose POC Glucose 196 H 224 H 163 H Lactic Acid Calcium Phosphorus Magnesium Iron TIBC Direct Bilirubin AST ALT Alkaline Phosphatase Total Creatine Kinase CK-MB (CK-2) C-Reactive Protein Total Protein Albumin Vitamin B12 Salicylates Acetaminophen Miscellaneous Test Crossmatch 04/10/19 04/10/19 04/10/19 04:15 04:15 05:30 WBC RBC 2.88 L Hgb 9.2 L Hct 27.9 L MCV MCH MCHC RDW 17.0 H Plt Count 454 H [place] % (Auto) Lymph # Seg Neuts % (Manual) Lymphocytes % (Manual) Nucleated RBC % Seg Neutrophils # Man Lymphocytes # (Manual) Monocytes # (Manual) PT INR APTT D-Dimer POC ABG pH ABG pH POC ABG pCO2 POC ABG pO2 ABG pO2 ABG HCO3 ABG O2 Saturation ABG Base Excess ABG Hemoglobin VBG pH Oxyhemoglobin Sodium Potassium Chloride Carbon Dioxide 32 H BUN Creatinine 0.2 L Glucose 126 H POC Glucose 135 H Lactic Acid Calcium Phosphorus Magnesium Iron TIBC Direct Bilirubin AST ALT Alkaline Phosphatase Total Creatine Kinase CK-MB (CK-2) C-Reactive Protein Total Protein Albumin Vitamin B12 Salicylates Acetaminophen Miscellaneous Test Crossmatch 04/10/19 04/10/19 04/10/19 12:14 15:29 23:38 WBC RBC Hgb Hct MCV MCH MCHC RDW Plt Count [place] % (Auto) Lymph # Seg Neuts % (Manual) Lymphocytes % (Manual) Nucleated RBC % Seg Neutrophils # Man Lymphocytes # (Manual) Monocytes # (Manual) PT INR APTT D-Dimer POC ABG pH ABG pH POC ABG pCO2 POC ABG pO2 ABG pO2 ABG HCO3 ABG O2 Saturation ABG Base Excess ABG Hemoglobin VBG pH Oxyhemoglobin Sodium Potassium Chloride Carbon Dioxide BUN Creatinine Glucose POC Glucose 109 H 149 H 268 H Lactic Acid Calcium Phosphorus Magnesium Iron TIBC Direct Bilirubin AST ALT Alkaline Phosphatase Total Creatine Kinase CK-MB (CK-2) C-Reactive Protein Total Protein Albumin Vitamin B12 Salicylates Acetaminophen Miscellaneous Test Crossmatch 04/11/19 04/11/19 04/11/19 05:27 12:08 18:08 WBC RBC Hgb Hct MCV MCH MCHC RDW Plt Count [place] % (Auto) Lymph # Seg Neuts % (Manual) Lymphocytes % (Manual) Nucleated RBC % Seg Neutrophils # Man Lymphocytes # (Manual) Monocytes # (Manual) PT INR APTT D-Dimer POC ABG pH ABG pH POC ABG pCO2 POC ABG pO2 ABG pO2 ABG HCO3 ABG O2 Saturation ABG Base Excess ABG Hemoglobin VBG pH Oxyhemoglobin Sodium Potassium Chloride Carbon Dioxide BUN Creatinine Glucose POC Glucose 109 H 185 H 190 H Lactic Acid Calcium Phosphorus Magnesium Iron TIBC Direct Bilirubin AST ALT Alkaline Phosphatase Total Creatine Kinase CK-MB (CK-2) C-Reactive Protein Total Protein Albumin Vitamin B12 Salicylates Acetaminophen Miscellaneous Test Crossmatch 04/11/19 04/12/19 04/12/19 23:23 06:00 11:42 WBC RBC Hgb Hct MCV MCH MCHC RDW Plt Count [place] % (Auto) Lymph # Seg Neuts % (Manual) Lymphocytes % (Manual) Nucleated RBC % Seg Neutrophils # Man Lymphocytes # (Manual) Monocytes # (Manual) PT INR APTT D-Dimer POC ABG pH ABG pH POC ABG pCO2 POC ABG pO2 ABG pO2 ABG HCO3 ABG O2 Saturation ABG Base Excess ABG Hemoglobin VBG pH Oxyhemoglobin Sodium Potassium Chloride Carbon Dioxide BUN Creatinine Glucose POC Glucose 127 H 201 H 161 H Lactic Acid Calcium Phosphorus Magnesium Iron TIBC Direct Bilirubin AST ALT Alkaline Phosphatase Total Creatine Kinase CK-MB (CK-2) C-Reactive Protein Total Protein Albumin Vitamin B12 Salicylates Acetaminophen Miscellaneous Test Crossmatch 04/12/19 04/12/19 04/12/19 17:56 20:07 21:59 WBC RBC Hgb Hct MCV MCH MCHC RDW Plt Count [place] % (Auto) Lymph # Seg Neuts % (Manual) Lymphocytes % (Manual) Nucleated RBC % Seg Neutrophils # Man Lymphocytes # (Manual) Monocytes # (Manual) PT INR APTT D-Dimer POC ABG pH ABG pH POC ABG pCO2 POC ABG pO2 ABG pO2 ABG HCO3 ABG O2 Saturation ABG Base Excess ABG Hemoglobin VBG pH Oxyhemoglobin Sodium Potassium Chloride Carbon Dioxide BUN Creatinine Glucose POC Glucose 145 H 158 H 203 H Lactic Acid Calcium Phosphorus Magnesium Iron TIBC Direct Bilirubin AST ALT Alkaline Phosphatase Total Creatine Kinase CK-MB (CK-2) C-Reactive Protein Total Protein Albumin Vitamin B12 Salicylates Acetaminophen Miscellaneous Test Crossmatch 04/12/19 04/13/19 04/13/19 23:37 08:50 08:50 WBC 15.7 H RBC 3.12 L Hgb Hct 30.2 L MCV MCH 33 H MCHC RDW 18.0 H Plt Count 678 H [place] % (Auto) Lymph # Seg Neuts % (Manual) Lymphocytes % (Manual) Nucleated RBC % Seg Neutrophils # Man Lymphocytes # (Manual) Monocytes # (Manual) PT INR APTT D-Dimer POC ABG pH ABG pH POC ABG pCO2 POC ABG pO2 ABG pO2 ABG HCO3 ABG O2 Saturation ABG Base Excess ABG Hemoglobin VBG pH Oxyhemoglobin Sodium Potassium Chloride Carbon Dioxide BUN Creatinine < 0.2 L Glucose 46 L POC Glucose 238 H Lactic Acid Calcium Phosphorus Magnesium Iron TIBC Direct Bilirubin AST ALT Alkaline Phosphatase Total Creatine Kinase CK-MB (CK-2) C-Reactive Protein Total Protein Albumin Vitamin B12 Salicylates Acetaminophen Miscellaneous Test Crossmatch 04/13/19 04/13/19 04/13/19 11:56 17:27 23:57 WBC RBC Hgb Hct MCV MCH MCHC RDW Plt Count [place] % (Auto) Lymph # Seg Neuts % (Manual) Lymphocytes % (Manual) Nucleated RBC % Seg Neutrophils # Man Lymphocytes # (Manual) Monocytes # (Manual) PT INR APTT D-Dimer POC ABG pH ABG pH POC ABG pCO2 POC ABG pO2 ABG pO2 ABG HCO3 ABG O2 Saturation ABG Base Excess ABG Hemoglobin VBG pH Oxyhemoglobin Sodium Potassium Chloride Carbon Dioxide BUN Creatinine Glucose POC Glucose 40 L 66 L 65 L Lactic Acid Calcium Phosphorus Magnesium Iron TIBC Direct Bilirubin AST ALT Alkaline Phosphatase Total Creatine Kinase CK-MB (CK-2) C-Reactive Protein Total Protein Albumin Vitamin B12 Salicylates Acetaminophen Miscellaneous Test Crossmatch 04/14/19 04/14/19 04/14/19 05:28 08:20 08:20 WBC 17.8 H RBC 3.26 L Hgb Hct MCV 98 H MCH MCHC RDW 18.3 H Plt Count 622 H [place] % (Auto) Lymph # Seg Neuts % (Manual) Lymphocytes % (Manual) Nucleated RBC % Seg Neutrophils # Man Lymphocytes # (Manual) Monocytes # (Manual) PT INR APTT D-Dimer POC ABG pH ABG pH POC ABG pCO2 POC ABG pO2 ABG pO2 ABG HCO3 ABG O2 Saturation ABG Base Excess ABG Hemoglobin VBG pH Oxyhemoglobin Sodium Potassium Chloride Carbon Dioxide BUN 6 L Creatinine < 0.2 L Glucose 154 H POC Glucose 149 H Lactic Acid Calcium Phosphorus Magnesium Iron TIBC Direct Bilirubin AST ALT Alkaline Phosphatase Total Creatine Kinase CK-MB (CK-2) C-Reactive Protein Total Protein Albumin Vitamin B12 Salicylates Acetaminophen Miscellaneous Test Crossmatch 04/14/19 04/14/19 04/14/19 12:16 17:54 23:35 WBC RBC Hgb Hct MCV MCH MCHC RDW Plt Count [place] % (Auto) Lymph # Seg Neuts % (Manual) Lymphocytes % (Manual) Nucleated RBC % Seg Neutrophils # Man Lymphocytes # (Manual) Monocytes # (Manual) PT INR APTT D-Dimer POC ABG pH ABG pH POC ABG pCO2 POC ABG pO2 ABG pO2 ABG HCO3 ABG O2 Saturation ABG Base Excess ABG Hemoglobin VBG pH Oxyhemoglobin Sodium Potassium Chloride Carbon Dioxide BUN Creatinine Glucose POC Glucose 176 H 224 H 173 H Lactic Acid Calcium Phosphorus Magnesium Iron TIBC Direct Bilirubin AST ALT Alkaline Phosphatase Total Creatine Kinase CK-MB (CK-2) C-Reactive Protein Total Protein Albumin Vitamin B12 Salicylates Acetaminophen Miscellaneous Test Crossmatch 04/15/19 04/15/19 04/15/19 05:44 12:44 18:06 WBC RBC Hgb Hct MCV MCH MCHC RDW Plt Count [place] % (Auto) Lymph # Seg Neuts % (Manual) Lymphocytes % (Manual) Nucleated RBC % Seg Neutrophils # Man Lymphocytes # (Manual) Monocytes # (Manual) PT INR APTT D-Dimer POC ABG pH 7.461 H ABG pH POC ABG pCO2 45.5 H POC ABG pO2 ABG pO2 ABG HCO3 ABG O2 Saturation ABG Base Excess ABG Hemoglobin VBG pH Oxyhemoglobin Sodium Potassium Chloride Carbon Dioxide BUN Creatinine Glucose POC Glucose 255 H 365 H Lactic Acid Calcium Phosphorus Magnesium Iron TIBC Direct Bilirubin AST ALT Alkaline Phosphatase Total Creatine Kinase CK-MB (CK-2) C-Reactive Protein Total Protein Albumin Vitamin B12 Salicylates Acetaminophen Miscellaneous Test Crossmatch 04/15/19 04/15/19 04/16/19 18:06 23:34 00:40 WBC RBC Hgb Hct MCV MCH MCHC RDW Plt Count [place] % (Auto) Lymph # Seg Neuts % (Manual) Lymphocytes % (Manual) Nucleated RBC % Seg Neutrophils # Man Lymphocytes # (Manual) Monocytes # (Manual) PT INR APTT D-Dimer POC ABG pH ABG pH POC ABG pCO2 POC ABG pO2 ABG pO2 ABG HCO3 ABG O2 Saturation ABG Base Excess ABG Hemoglobin VBG pH Oxyhemoglobin Sodium Potassium Chloride Carbon Dioxide BUN Creatinine Glucose POC Glucose 157 H 56 L 107 H Lactic Acid Calcium Phosphorus Magnesium Iron TIBC Direct Bilirubin AST ALT Alkaline Phosphatase Total Creatine Kinase CK-MB (CK-2) C-Reactive Protein Total Protein Albumin Vitamin B12 Salicylates Acetaminophen Miscellaneous Test Crossmatch 04/16/19 04/16/19 04/16/19 09:06 09:06 11:21 WBC 12.9 H RBC 2.95 L Hgb 9.7 L Hct 28.9 L MCV 98 H MCH 33 H MCHC RDW 17.7 H Plt Count 581 H [place] % (Auto) Lymph # Seg Neuts % (Manual) Lymphocytes % (Manual) Nucleated RBC % Seg Neutrophils # Man Lymphocytes # (Manual) Monocytes # (Manual) PT INR APTT D-Dimer POC ABG pH ABG pH POC ABG pCO2 POC ABG pO2 ABG pO2 ABG HCO3 ABG O2 Saturation ABG Base Excess ABG Hemoglobin VBG pH Oxyhemoglobin Sodium Potassium Chloride Carbon Dioxide 31 H BUN Creatinine 0.2 L Glucose 155 H POC Glucose 184 H Lactic Acid Calcium Phosphorus Magnesium Iron TIBC Direct Bilirubin AST ALT Alkaline Phosphatase Total Creatine Kinase CK-MB (CK-2) C-Reactive Protein Total Protein Albumin Vitamin B12 Salicylates Acetaminophen Miscellaneous Test Crossmatch 04/16/19 04/16/19 04/16/19 17:28 20:17 23:09 WBC RBC Hgb Hct MCV MCH MCHC RDW Plt Count [place] % (Auto) Lymph # Seg Neuts % (Manual) Lymphocytes % (Manual) Nucleated RBC % Seg Neutrophils # Man Lymphocytes # (Manual) Monocytes # (Manual) PT INR APTT D-Dimer POC ABG pH 7.479 H ABG pH POC ABG pCO2 POC ABG pO2 71 L ABG pO2 ABG HCO3 ABG O2 Saturation ABG Base Excess ABG Hemoglobin VBG pH Oxyhemoglobin Sodium Potassium Chloride Carbon Dioxide BUN Creatinine Glucose POC Glucose 173 H 178 H Lactic Acid Calcium Phosphorus Magnesium Iron TIBC Direct Bilirubin AST ALT Alkaline Phosphatase Total Creatine Kinase CK-MB (CK-2) C-Reactive Protein Total Protein Albumin Vitamin B12 Salicylates Acetaminophen Miscellaneous Test Crossmatch 04/17/19 04/17/19 05:02 11:39 WBC RBC Hgb Hct MCV MCH MCHC RDW Plt Count [place] % (Auto) Lymph # Seg Neuts % (Manual) Lymphocytes % (Manual) Nucleated RBC % Seg Neutrophils # Man Lymphocytes # (Manual) Monocytes # (Manual) PT INR APTT D-Dimer POC ABG pH ABG pH POC ABG pCO2 POC ABG pO2 ABG pO2 ABG HCO3 ABG O2 Saturation ABG Base Excess ABG Hemoglobin VBG pH Oxyhemoglobin Sodium Potassium Chloride Carbon Dioxide BUN Creatinine Glucose POC Glucose 252 H 124 H Lactic Acid Calcium Phosphorus Magnesium Iron TIBC Direct Bilirubin AST ALT Alkaline Phosphatase Total Creatine Kinase CK-MB (CK-2) C-Reactive Protein Total Protein Albumin Vitamin B12 Salicylates Acetaminophen Miscellaneous Test Crossmatch Chest x-ray: image reviewed (left lung whiteout from right mainstem intubation) Allied health notes reviewed: nursing
[2019-04-17] MEDS: DURAGESIC TD SCH (14:10)
--- NOTE | 2019-04-17 14:42 | Event Note ---
Date: 04/17/[address] Lainez that tracheostomy is in the right mainstem bronchus with atelectasis of left lung. CXR reviewed. Pt examined and bolstering gauze between tracheostomy and skin had been removed and replaced with single drain sponge causing tracheostomy to be advanced into trachea. Tracheostomy retracted to the point of suture around tracheostomy tube and bolstered in place using multiple drain sponges and gauze to prevent advancement of tracheostomy into trachea. Patient remained stable throughout. Education performed with RT in room.
--- NOTE | 2019-04-17 14:53 | Progress Note ---
Assessment and Plan Assessment and plan: Patient is a 29 year old woman with a history of diabetes was brought to the emergency room following a cardiac arrest. Her last well-known time was 10:30 in the morning, she was traveling with a friend, she was unresponsive in the back seat. EMS was called, CPR was started and continued here in the emergency room. Patient was intubated in the ER, noted hypotensive started on dobutamine, epinephrine and Levophed drip, given IV fluids, found to be in DKA with BG ~2200, several metabolic derangements - placed on insulin drip and admitted to ICU. BP improved and she was weaned off pressors. Still intubated on vent, minimal response. patient has been in coma for several days, no improvement. She has a DNR status order. Acute respiratory failure s/p intubated, on vent - s/p trach and peg - Tracheostomy re-adjusted on 04/17/19 - on vent, cont nebs, - s/p Trach POD 3 - Pulm following - Aspiration precautions - VAP bundle Acute anoxic encephalopathy, POA - from cardiac arrest for DM - Neurology following -MR concerning for anoxic Brain injury Cardiac arrest s/p resuscitation - likely 2/2 severe hyperglycemia - preserved EF on 2D echo Generalized Anasacara -Given a dose of Bumex DKA, severe - BG was >2200 on admission - s/p insulin drip. cont iv fluid - monitor BG q4h, on TF and on subqu insulin - adjust dose as needed Shock hypotensive +/- sepsis - resolved Now off pressors. Was on vasopressin, Levophed, Phenylephrine Sepsis with possible aspiration PNA - evident on CXR on admission with left sided infiltrates - cont abx per ID - Competed abx - Abx discontinued following notation that no evidence of liver lesion not consistent with infection per ID - Leucocytosis and thrombocytosis are likely reactive from hepatic subcapsular hematoma Head lice - multiple dosing of Permethin given - continue isolation Acute renal failure, likely vasomotor nephropathy - resolved - cont iv fluid, monitor BMP Anemia, acute on chronic - no sign of blood loss s/p 2 Units PRBC transfused Hyperkalemia, resolved with fluid and insulin Hypernatremia Resolved hypokalemia, resolved Shock liver with elevated LFT and Coagulopathy - due to cardiac arrest and hypotension - cont to monitor Liver lesion ID Physician following Discontinued abx, not consistent with infection as noted above Hypermagnesemia - monitor levels as needed Hyperphosphatemia -cont to monitor, improved Stage 1 sacral ulcer, poa - upper ext blisters - pressure ulcer prevention strategies VT Prophylaxis with Lovenox Poor prognosis DNR status Disposition: continue inpatient care, await placement CCT 32 minutes History Interval history: Patient was seen and examined. Follow-up on current diagnosis respiratory kellie lure. No overnight events reported to me.. Imaging, nursing note, chart, labs and old chart reviewed. Hospitalist Physical - Physical exam Narrative exam: Gen: On full MVS and tolerating HEENT: facial edema, atraumatic. Trach bed clean with no drainage, opens eyes spontanously Neck: supple, no JVD Heart: S1 and S2 reg, Tachycardia, no murmurs, rubs or gallop Lungs: Clear to auscultation, no rhonchi, no wheeze Abd: soft, non tender, non distended, normal BS, Ext: anasarca, leg edema, no cyanosis Neuro: Minimal responsive, does not follow commands, Skin: see full skin assessment. Stage 1 sacral ulcer - Constitutional Vitals: Temp Pulse Resp BP Pulse Ox 100.0 F H 120 H 12 108/69 97 04/17/19 12:00 04/17/19 14:00 04/17/19 14:00 04/17/19 14:00 04/17/19 14:25 General appearance: Present: other (intubated) Results - Labs CBC & Chem 7: 04/16/19 09:06 04/16/19 09:06 Labs: Laboratory Last Values WBC 12.9 K/mm3 (4.5-11.0) H 04/16/19 09:06 RBC 2.95 M/mm3 (3.65-5.03) L 04/16/19 09:06 Hgb 9.7 gm/dl (10.1-14.3) L 04/16/19 09:06 Hct 28.9 % (30.3-42.9) L 04/16/19 09:06 MCV 98 fl (79-97) H 04/16/19 09:06 MCH 33 pg (28-32) H 04/16/19 09:06 MCHC 33 % (30-34) 04/16/19 09:06 RDW 17.7 % (13.2-15.2) H 04/16/19 09:06 Plt Count 581 K/mm3 (140-440) H 04/16/19 09:06 Lymph % (Auto) 16.9 % (13.4-35.0) 04/03/19 03:40 [place] % (Auto) 9.8 % (0.0-7.3) H 04/03/19 03:40 Eos % (Auto) 3.2 % (0.0-4.3) 04/03/19 03:40 Baso % (Auto) 0.4 % (0.0-1.8) 04/03/19 03:40 Lymph # 1.1 K/mm3 (1.2-5.4) L 04/03/19 03:40 [place] # 0.6 K/mm3 (0.0-0.8) 04/03/19 03:40 Eos # 0.2 K/mm3 (0.0-0.4) 04/03/19 03:40 Baso # 0.0 K/mm3 (0.0-0.1) 04/03/19 03:40 Add Manual Diff Complete 04/01/19 05:01 Total Counted 100 04/01/19 05:01 Seg Neutrophils % 69.7 % (40.0-70.0) 04/03/19 03:40 Seg Neuts % (Manual) 71.0 % (40.0-70.0) H 04/01/19 05:01 0 % 04/01/19 05:01 20.0 % (13.4-35.0) 04/01/19 05:01 Reactive Lymphs % (Man) 0 % 04/01/19 05:01 7.0 % (0.0-7.3) 04/01/19 05:01 2.0 % (0.0-4.3) 04/01/19 05:01 0 % (0.0-1.8) 04/01/19 05:01 0 % 04/01/19 05:01 0 % 04/01/19 05:01 0 % 04/01/19 05:01 0 % 04/01/19 05:01 Nucleated RBC % Not Reportable 04/01/19 05:01 Seg Neutrophils # 4.4 K/mm3 (1.8-7.7) 04/03/19 03:40 Seg Neutrophils # Man 4.8 K/mm3 (1.8-7.7) 04/01/19 05:01 Band Neutrophils # 0.0 K/mm3 04/01/19 05:01 1.4 K/mm3 (1.2-5.4) 04/01/19 05:01 Abs React Lymphs (Man) 0.0 K/mm3 04/01/19 05:01 0.5 K/mm3 (0.0-0.8) 04/01/19 05:01 0.1 K/mm3 (0.0-0.4) 04/01/19 05:01 0.0 K/mm3 (0.0-0.1) 04/01/19 05:01 0.0 K/mm3 04/01/19 05:01 0.0 K/mm3 04/01/19 05:01 0.0 K/mm3 04/01/19 05:01 Blast Cells # 0.0 K/mm3 04/01/19 05:01 WBC Morphology Not Reportable 04/01/19 05:01 Hypersegmented Neuts Not Reportable 04/01/19 05:01 Hyposegmented Neuts Not Reportable 04/01/19 05:01 Hypogranular Neuts Not Reportable 04/01/19 05:01 Not Reportable 04/01/19 05:01 Not Reportable 04/01/19 05:01 Not Reportable 04/01/19 05:01 Not Reportable 04/01/19 05:01 Not Reportable 04/01/19 05:01 Not Reportable 04/01/19 05:01 Not Reportable 04/01/19 05:01 Not Reportable 04/01/19 05:01 Plt Clumps, EDTA Not Reportable 04/01/19 05:01 Not Reportable 04/01/19 05:01 Not Reportable 04/01/19 05:01 Not Reportable 04/01/19 05:01 Plt Morphology Comment Not Reportable 04/01/19 05:01 RBC Morphology Normal 04/01/19 05:01 Dimorphic RBCs Not Reportable 04/01/19 05:01 Not Reportable 04/01/19 05:01 Not Reportable 04/01/19 05:01 Not Reportable 04/01/19 05:01 Not Reportable 04/01/19 05:01 Not Reportable 04/01/19 05:01 Not Reportable 04/01/19 05:01 Not Reportable 04/01/19 05:01 Not Reportable 04/01/19 05:01 Not Reportable 04/01/19 05:01 Not Reportable 04/01/19 05:01 Not Reportable 04/01/19 05:01 Not Reportable 04/01/19 05:01 Not Reportable 04/01/19 05:01 Not Reportable 04/01/19 05:01 Not Reportable 04/01/19 05:01 Not Reportable 04/01/19 05:01 Not Reportable 04/01/19 05:01 Not Reportable 04/01/19 05:01 Not Reportable 04/01/19 05:01 Acanthocytes (Spur) Not Reportable 04/01/19 05:01 Rouleaux Not Reportable 04/01/19 05:01 Not Reportable 04/01/19 05:01 Not Reportable 04/01/19 05:01 Not Reportable 04/01/19 05:01 Not Reportable 04/01/19 05:01 Hem Pathologist Commnt No 04/01/19 05:01 PT 13.9 Sec. (12.2-14.9) 04/01/19 17:14 INR 1.10 (0.87-1.13) 04/01/19 17:14 APTT 74.5 Sec. (24.2-36.6) H* 03/29/19 19:20 313 mg/dl (211-480) 04/01/19 17:14 4526.86 ng/mlDDU (0-234) H 04/06/19 00:06 Heparin Anti-Xa, Unfract Negative (Negative) 03/31/19 15:00 POC ABG pH 7.557 (7.35-7.45) H 04/17/19 12:48 ABG pH 7.396 pH Units (7.350-7.450) 04/03/19 05:35 POC ABG pCO2 32.8 (35-45) L 04/17/19 12:48 ABG pCO2 32.2 mm Hg 04/03/19 05:35 POC ABG pO2 149 (80-105) H 04/17/19 12:48 ABG pO2 97.7 mm Hg (80.0-90.0) H 04/03/19 05:35 POC ABG HCO3 29.1 (22-26 mml/L) 04/17/19 12:48 ABG HCO3 19.3 mmol/L (20.0-26.0) L 04/03/19 05:35 POC ABG Total CO2 30 (23-27mmol/L) 04/17/19 12:48 POC ABG O2 Sat 100 04/17/19 12:48 ABG O2 Saturation 97.6 % (95.0-99.0) 04/03/19 05:35 ABG O2 Content 10.9 (0.0-44) 04/03/19 05:35 POC ABG Base Excess 7 ((-2) - (+3)mmol/L) 04/17/19 12:48 ABG Base Excess -5.0 mmol/L (-2.0-3.0) L 04/03/19 05:35 ABG Hemoglobin 8.0 gm/dl (12.0-16.0) L 04/03/19 05:35 ABG Carboxyhemoglobin 2.1 % (0.0-5.0) 04/03/19 05:35 ABG Methemoglobin 0.5 % (0.0-1.5) 04/03/19 05:35 VBG pH 6.800 (7.320-7.420) L* 03/29/19 19:47 95.1 % (95.0-99.0) 04/03/19 05:35 100 % 04/17/19 12:48 Sodium 137 mmol/L (137-145) 04/16/19 09:06 Potassium 4.7 mmol/L (3.6-5.0) 04/16/19 09:06 Chloride 98.1 mmol/L (98-107) 04/16/19 09:06 Carbon Dioxide 31 mmol/L (22-30) H 04/16/19 09:06 13 mmol/L 04/16/19 09:06 BUN 10 mg/dL (7-17) 04/16/19 09:06 0.2 mg/dL (0.7-1.2) L 04/16/19 09:06 Estimated GFR > 60 ml/min 04/16/19 09:06 50 % 04/16/19 09:06 Glucose 155 mg/dL (65-100) H 04/16/19 09:06 POC Glucose 124 (70-105) H 04/17/19 11:39 Lactic Acid 3.30 mmol/L (0.7-2.0) H* 03/31/19 07:50 Calcium 8.9 mg/dL (8.4-10.2) 04/16/19 09:06 Phosphorus 4.10 mg/dL (2.5-4.5) 04/09/19 16:25 Magnesium 1.80 mg/dL (1.7-2.3) 04/09/19 16:25 Iron 26 ug/dL (37-170) L 03/31/19 08:20 TIBC 193 mcg/dL (250-450) L 03/31/19 08:20 0.60 mg/dL (0.1-1.2) 04/03/19 03:40 0.2 mg/dL (0-0.2) 04/02/19 07:48 0.5 mg/dL 04/02/19 07:48 AST 594 units/L (5-40) H 04/03/19 03:40 ALT 861 units/L (7-56) H 04/03/19 03:40 299 units/L (35-129) H 04/03/19 03:40 2465 units/L (30-135) H 03/30/19 05:26 CK-MB (CK-2) 52.7 ng/mL (0.0-4.0) H 03/30/19 05:26 CK-MB (CK-2) Rel Index 2.1 (0-4) 03/30/19 05:26 < 0.010 ng/mL (0.00-0.029) 04/06/19 05:20 2.40 mg/dL (0.00-1.30) H 03/30/19 12:57 4.4 g/dL (6.3-8.2) L 04/03/19 03:40 2.1 g/dL (3.9-5) L 04/03/19 03:40 0.9 % 04/03/19 03:40 See scanned result 03/31/19 15:00 Vitamin B12 > 2000 pg/mL (211-911) H 03/31/19 08:20 > 20 ng/mL (7.3-26.0) 03/31/19 08:20 HCG, Qual Negative (Negative) 03/29/19 19:20 Yellow (Yellow) 03/29/19 23:10 Slightly-cloudy (Clear) 03/29/19 23:10 6.0 (5.0-7.0) 03/29/19 23:10 Ur Specific Central 1.021 (1.003-1.030) 03/29/19 23:10 100 mg/dl mg/dL (Negative) 03/29/19 23:10 >=500 mg/dL (Negative) 03/29/19 23:10 20 mg/dL (Negative) 03/29/19 23:10 Lg (Negative) 03/29/19 23:10 Neg (Negative) 03/29/19 23:10 Neg (Negative) 03/29/19 23:10 < 2.0 mg/dL (<2.0) 03/29/19 23:10 Ur Leukocyte Esterase Neg (Negative) 03/29/19 23:10 1.0 /HPF (0.0-6.0) 03/29/19 23:10 1.0 /HPF (0.0-6.0) 03/29/19 23:10 Few /HPF 03/29/19 23:10 Salicylates 0.8 mg/dL (2.8-20.0) L 03/30/19 Unknown Presumptive negative 03/29/19 23:10 Presumptive negative 03/29/19 23:10 Acetaminophen < 5.0 ug/mL (10.0-30.0) L 03/30/19 Unknown Ur Barbiturates Screen Presumptive negative 03/29/19 23:10 Ur Phencyclidine Scrn Presumptive negative 03/29/19 23:10 Ur Amphetamines Screen Presumptive negative 03/29/19 23:10 U Benzodiazepines Scrn Presumptive negative 03/29/19 23:10 Presumptive negative 03/29/19 23:10 U Marijuana (THC) Screen Presumptive negative 03/29/19 23:10 Disclamer 03/29/19 23:10 Heparin-induced Plt Ab Negative (Negative) 03/31/19 15:00 UF Heparin High Dose 0 % Release 03/31/19 15:00 FABIAN UFH Low Dose 0.1 0 % Release 03/31/19 15:00 FABIAN UFH Low Dose 0.5 0 % Release 03/31/19 15:00 Hepatitis A IgM Ab Non-reactive (NonReactive) 03/30/19 Unknown Hep Bs Antigen Non-reactive (Negative) 03/30/19 Unknown Hep B Core IgM Ab Non-reactive (NonReactive) 03/30/19 Unknown Non-reactive (NonReactive) 03/30/19 Unknown Flexitest 1 H 03/30/19 14:00 Blood Type O POSITIVE 03/30/19 03:30 Antibody Screen Negative 03/30/19 03:30 Crossmatch See Detail 03/30/19 03:30 Active Medications - Current Medications Current Medications: Generic Name Dose Route Start Last Admin Trade Name Freq PRN Reason Stop Dose Admin Acetaminophen 650 mg 03/29/19 23:34 04/01/19 23:38 Tylenol PO 650 mg Q4H PRN Administration Pain MILD(1-3)/Fever >100.5/WARE Lipase/Protease/Amylase 1 each 04/02/19 11:[address] 10,500 Unit FEEDTUBE PRN PRN For Clogged Feeding Tube Dextrose 0 ml 03/29/19 20:33 04/15/19 23:36 D50w (25gm) Syringe IV 20 ml PRN PRN Administration Hypoglycemia Enoxaparin Sodium 40 mg 04/14/19 10:00 04/17/19 09:45 Lovenox SUB-Q 40 mg QDAY@1000 ZAMZAM Administration Famotidine 20 mg 04/02/19 10:00 04/17/19 09:45 Pepcid PO 20 mg BID ZAMZAM Administration Fentanyl 50 mcg 04/05/19 11:00 04/17/19 05:18 Sublimaze IV 50 mcg Q2H PRN Administration Pain , Severe (7-10)/AGITATION Fentanyl 25 mcg 04/14/19 14:00 04/17/19 14:10 Duragesic TD 25 mcg Q3D ZAMZAM Administration Hydrophilic Ointment 1 applic 03/30/19 11:24 Vaseline Lip Therapy TP Q2HR PRN Dry Lips Insulin Glargine 20 units 04/09/19 22:00 04/16/19 22:11 Lantus SUB-Q 20 units QHS ZAMZAM Administration Insulin Human Regular 0 units 04/09/19 12:00 04/17/19 13:11 Humulin R SUB-Q Not Given Q6HR [facility] Protocol Levetiracetam 500 mg 04/03/19 10:00 04/17/19 09:45 Keppra PO 500 mg BID ZAMZAM Administration Metoprolol Tartrate 5 mg 04/14/19 13:06 04/17/19 08:30 Lopressor IV 5 mg Q6HR PRN Administration Tachyarrhythmias Metoprolol Tartrate 25 mg 04/16/19 10:00 04/17/19 10:05 Lopressor PO 25 mg BID ZAMZAM Administration Multi-Ingred Cream/Lotion/Oil/Oint 1 applic 03/30/19 11:24 04/06/19 11:39 Artificial Tears Ophth Oint OU 1 applic Q4HR PRN Administration Dry Eye(s) Ondansetron HCl 4 mg 03/29/19 23:34 Zofran IV Q8H PRN Nausea And Vomiting Scopolamine 1 each 04/17/19 12:00 04/17/19 12:48 Transderm-Scop TD 1 each Q3D ZAMZAM Administration Simple Syrup 15 ml 04/02/19 11:44 04/14/19 01:53 Simple Syrup FEEDTUBE 15 ml PRN PRN Administration Hypoglycemia Simple Syrup 30 ml 04/02/19 11:44 Simple Syrup FEEDTUBE PRN PRN Hypoglycemia Sodium Bicarbonate 325 mg 04/02/19 11:44 Sodium Bicarbonate FEEDTUBE PRN PRN For Clogged Feeding Tube Sodium Chloride 10 ml 03/30/19 10:00 04/17/19 12:48 Sodium Chloride Flush Syringe 10 Ml IV 10 ml BID ZAMZAM Administration Sodium Chloride 10 ml 03/29/19 23:34 Sodium Chloride Flush Syringe 10 Ml IV PRN PRN LINE FLUSH Nutrition/Malnutrition Assess - Dietary Evaluation Nutrition/Malnutrition Findings: Nutrition Notes Start: 03/30/19 13:14 Freq: Status: Active Protocol: Document 04/11/19 10:44 LM (Rec: 04/11/19 10:54 LM [facility][email or web address]) Nutrition Notes Initial or Follow up Reassessment Current Diagnosis Diabetes,Sepsis,Respiratory Failure Other Pertinent Diagnosis s/p cardiac arrest, DKA, ARF, Shock liver Current Diet Glucerna 1.2 at 50 ml/hr Labs/Tests POC glu 109 Pertinent Medications Reviewed Height 5 ft Weight 42.8 kg [place] Body Weight (kg) 45.45 BMI 18.4 Weight change and time frame Wt change noted Subjective/Other Information Glucerna running at 50 ml/hr. Pt is tolerateing TF. Per MD pt will be getting trach and PEG. Pt remains on vent. Burn Absent Trauma Absent #1 Nutrition Diagnosis Inadequate oral intake Diagnosis Progress(for reassessment Continues documentation) Is patient on ventilator? Yes Is Patient Ambulatory and/or Out of Bed No REE-([facility]-confined to bed) 1279.860 Kcal/Kg value to use for calculation 40 Approximate Energy Requirements Using 1712 kcal/Kg Additional Notes Protein: 1.2-2g/k-86g/day Fluids: 1ml/kcal Nutrition Intervention Change Diet Order: Continue TF Nutrition Support: Glucerna 1.2 at 50ml/hr with 80ml water flush q4h. Kcal 1,440 Protein (gm) 72 Fluid (mL) 966 Goal #1 Meet at least 75% of energy and protein needs Follow-Up By: 04/18/19 Additional Comments F/U for TF tolerance/rate
--- NOTE | 2019-04-17 15:48 | XRay Report ---
CHEST 1 VIEW INDICATION / CLINICAL INFORMATION: Right mainstem intubation post repositioning. COMPARISON: 04/17/2019 at 1214 hours FINDINGS: SUPPORT DEVICES: Tracheostomy tube HEART / MEDIASTINUM: No significant abnormality. LUNGS / PLEURA: Left-sided airspace disease No pneumothorax. ADDITIONAL FINDINGS: No significant additional findings. IMPRESSION: Tracheostomy tube has been repositioned and appears to be in good position. There is been improvement in the aeration of the left lung from earlier today. No other interval change. Signer Name: Quan Cochran MD FACR Signed: 04/17/2019 3:44 PM Workstation Name: [id number]
[2019-04-17] MEDS: LANTUS SUB-Q SCH (21:44)
[2019-04-18] MEDS: HumuLIN R SUB-Q SCH ×5 (00:03→23:55)
[2019-04-18] MEDS: ENOXAPARIN SUB-Q SCH (11:27)
[2019-04-18] MEDS: PEPCID PO SCH ×2 (11:27→21:10)
[2019-04-18] MEDS: KEPPRA PO SCH ×2 (11:27→21:10)
[2019-04-18] MEDS: SODIUM CHLORIDE FLUSH SYRINGE 10 ML IV SCH ×2 (11:28→21:12)
[2019-04-18] MEDS: METOPROLOL PO SCH ×2 (11:28→22:02)
--- NOTE | 2019-04-18 11:42 | Progress Note ---
Assessment and Plan Acute toxic metabolic encephalopathy. Diabetic ketoacidosis. Severe sepsis with shock. Possible aspiration pneumonia. History of polysubstance abuse. Leukocytosis. Elevated serum transaminases, possible shock liver. Hyponatremia related to her severe hyperglycemia. Anemia that is macrocytic. History of seizure disorder. Severe metabolic acidosis. Acute kidney injury, possibly on chronic (FiO2 was at 100% overnight but quickly weaned down to 40 % this am) - get CXR to confirm good trach positioning - resume t-piece trials as tolerated - ABG after 2 hours if tolerates - if does not tolerate t-piece will resume PSV trials - continue scopolamine patch for secretion control - continue daily SAT and SBT assessments as tolerated otherwise - continue metoprolol at 25 mg po bid scheduled - continue prn IV metoprolol 5mg q6h for pulse > 130/min - continue fentanyl 25 mics/hr patch re: chronic back pain - continue set rate at 12/min while resting - continue contact isolation - continue to follow mental status closely - follow clinically off AB's at this point - continue enteral nutrition with glucerna and adjust rate per clinical molecular geneticist - continue bronchodilators with pulmonary hygiene per RT - VAP bundle addressed - continue to wean supplemental O2 to keep O2 sats > 90% - VTE prophylaxis with lovenox - Stress ulcer prophylaxis - continue accuchecks with glycemic control per SSI for target blood glucose 140-180 mg/dL - continue empiric antibiotics; de-escalate per ID rec's and based on clinical and microbiologic data - sedation target of RASS 0 to -1 - continue Keppra for seizures - continue mobility protocols / off loading for pressure ulcer prevention - Critical care bundles addressed - continue Seizure precautions - fall precautions - neuro-checks per RN - continue other care per attending / other consultants CONDITION: CRITICAL PROGNOSIS: GUARDED TO GRAVE CODE STATUS: FULL CODE The high probability of a clinically significant, sudden or life threatening deterioration of the [Neurology Respiratory, Cardiovascular] system(s) required my full and direct attention, intervention and personal management. The aggregate critical care time was [32] minutes. This time is in addition to time spent performing reported procedures but includes the following: [x] Data Review and interpretation [x] Patient assessment and monitoring of vital signs [x] Documentation [x] Medication orders and management Subjective Date of service: 04/18/19 Principal diagnosis: Ac Hypoxemic Resp Failure; DKA; Severe sepsis with shock; ANGELICA Interval history: Patient is seen today for: Acute Hypoxemic Resp Failure; Ac toxic metabolic encephalopathy; DKA; Severe sepsis with shock; Possible aspiration pneumonia; History of polysubstance abuse; History of seizure disorder; Acute kidney injury, possibly on chronic Seen and examined at bedside; 24hour events reviewed; nursing and respiratory care staff consulted; no adverse overnight events reported to me; resting peacefully in bed; looks more comfortable; AMS is persistent; NO emesis or overt aspiration and no reported seizures Objective Vital Signs - 12hr 04/17/19 04/18/19 04/18/19 23:45 00:00 00:51 Temperature 99.8 F H Pulse Rate 107 H 108 H Pulse Rate [ 108 H From Monitor] Respiratory 10 L Rate Blood Pressure 108/73 108/73 O2 Sat by Pulse 99 99 Oximetry O2 Sat by Pulse Oximetry [ Assessment] 04/18/19 04/18/19 04/18/19 01:34 02:00 03:00 Temperature Pulse Rate 108 H 105 H 107 H Pulse Rate [ From Monitor] Respiratory 10 L 10 L 10 L Rate Blood Pressure 108/73 105/72 108/69 O2 Sat by Pulse 99 99 99 Oximetry O2 Sat by Pulse Oximetry [ Assessment] 04/18/19 04/18/19 04/18/19 04:00 04:01 04:29 Temperature 98.2 F Pulse Rate 101 H 103 H 104 H Pulse Rate [ 101 H From Monitor] Respiratory 12 10 L Rate Blood Pressure 108/69 109/77 O2 Sat by Pulse 100 100 Oximetry O2 Sat by Pulse Oximetry [ Assessment] 04/18/19 04/18/19 04/18/19 05:00 06:00 07:00 Temperature Pulse Rate 107 H 97 H 106 H Pulse Rate [ From Monitor] Respiratory 12 11 L 10 L Rate Blood Pressure 109/77 112/74 112/82 O2 Sat by Pulse 100 100 100 Oximetry O2 Sat by Pulse Oximetry [ Assessment] 04/18/19 04/18/19 04/18/19 07:56 08:00 08:20 Temperature 97.8 F Pulse Rate 97 H 105 H Pulse Rate [ 102 H From Monitor] Respiratory 11 L Rate Blood Pressure 108/77 108/77 O2 Sat by Pulse 100 90 Oximetry O2 Sat by Pulse 98 Oximetry [ Assessment] 04/18/19 04/18/19 04/18/19 08:48 09:00 11:28 Temperature Pulse Rate 111 H 110 H 112 H Pulse Rate [ From Monitor] Respiratory 12 Rate Blood Pressure 104/71 106/77 O2 Sat by Pulse 99 98 Oximetry O2 Sat by Pulse Oximetry [ Assessment] Constitutional: no acute distress, other (young CF normocephalic and atraumatic on MVS) Eyes: non-icteric ENT: oropharynx moist, other (s/p tracheostomy) Neck: supple, no lymphadenopathy, no JVD Effort: mildly labored Ascultation: Bilateral: clear Percussion: Bilateral: not dull Cardiovascular: regular rate and rhythm, other (sinus tachycardia) Gastrointestinal: hypoactive bowel sounds, soft, non-tender, non-distended Integumentary: erythema (noted on upper extremity) Extremities: no cyanosis, pink and warm, pulses normal, no ischemia or petechiae, edema (trace to 1+) Neurologic: unable to assess (remains unresponsive, opens eyes on suctioning, not obeying commands) Psychiatric: other (unable to assess) CBC and BMP: 04/16/19 09:06 04/16/19 09:06 ABG, PT/INR, D-dimer: ABG POC ABG pH 7.557 (7.35-7.45) H 04/17/19 12:48 ABG pH 7.396 pH Units (7.350-7.450) 04/03/19 05:35 POC ABG pCO2 32.8 (35-45) L 04/17/19 12:48 ABG pCO2 32.2 mm Hg 04/03/19 05:35 POC ABG pO2 149 (80-105) H 04/17/19 12:48 ABG pO2 97.7 mm Hg (80.0-90.0) H 04/03/19 05:35 POC ABG HCO3 29.1 (22-26 mml/L) 04/17/19 12:48 POC ABG Total CO2 30 (23-27mmol/L) 04/17/19 12:48 POC ABG O2 Sat 100 04/17/19 12:48 ABG O2 Saturation 97.6 % (95.0-99.0) 04/03/19 05:35 PT/INR, D-dimer PT 13.9 Sec. (12.2-14.9) 04/01/19 17:14 INR 1.10 (0.87-1.13) 04/01/19 17:14 4526.86 ng/mlDDU (0-234) H 04/06/19 00:06 Abnormal lab findings: Abnormal Labs 03/29/19 03/29/19 03/29/19 19:11 19:20 19:20 WBC 26.7 H RBC 2.52 L Hgb 8.1 L Hct MCV 148 H MCH MCHC 22 L RDW 18.5 H Plt Count [place] % (Auto) Lymph # Seg Neuts % (Manual) 82.0 H Lymphocytes % (Manual) 7.0 L Nucleated RBC % Seg Neutrophils # Man 21.9 H Lymphocytes # (Manual) Monocytes # (Manual) 1.9 H PT 21.8 H INR 1.95 H APTT 74.5 H* D-Dimer POC ABG pH ABG pH POC ABG pCO2 POC ABG pO2 ABG pO2 ABG HCO3 ABG O2 Saturation ABG Base Excess ABG Hemoglobin VBG pH Oxyhemoglobin Sodium Potassium Chloride Carbon Dioxide BUN Creatinine Glucose POC Glucose > 500 H Lactic Acid Calcium Phosphorus Magnesium Iron TIBC Direct Bilirubin AST ALT Alkaline Phosphatase Total Creatine Kinase CK-MB (CK-2) C-Reactive Protein Total Protein Albumin Vitamin B12 Salicylates Acetaminophen Miscellaneous Test Crossmatch 03/29/19 03/29/19 03/29/19 19:20 19:47 20:59 WBC RBC Hgb Hct MCV MCH MCHC RDW Plt Count [place] % (Auto) Lymph # Seg Neuts % (Manual) Lymphocytes % (Manual) Nucleated RBC % Seg Neutrophils # Man Lymphocytes # (Manual) Monocytes # (Manual) PT INR APTT D-Dimer POC ABG pH 6.892 L ABG pH POC ABG pCO2 POC ABG pO2 236 H ABG pO2 ABG HCO3 ABG O2 Saturation ABG Base Excess ABG Hemoglobin VBG pH 6.800 L* Oxyhemoglobin Sodium 118 L* Potassium 9.0 H* Chloride 64.5 L Carbon Dioxide 7 L* BUN 53 H Creatinine 2.1 H Glucose 2196 H* POC Glucose Lactic Acid Calcium 12.4 H* Phosphorus Magnesium Iron TIBC Direct Bilirubin AST 3900 H ALT 1034 H Alkaline Phosphatase 316 H Total Creatine Kinase CK-MB (CK-2) C-Reactive Protein Total Protein 5.1 L Albumin 2.8 L Vitamin B12 Salicylates Acetaminophen Miscellaneous Test Crossmatch 03/29/19 03/29/19 03/29/19 22:45 22:45 22:45 WBC RBC Hgb Hct MCV MCH MCHC RDW Plt Count [place] % (Auto) Lymph # Seg Neuts % (Manual) Lymphocytes % (Manual) Nucleated RBC % Seg Neutrophils # Man Lymphocytes # (Manual) Monocytes # (Manual) PT INR APTT D-Dimer POC ABG pH ABG pH POC ABG pCO2 POC ABG pO2 ABG pO2 ABG HCO3 ABG O2 Saturation ABG Base Excess ABG Hemoglobin VBG pH Oxyhemoglobin Sodium 132 L D Potassium 7.0 H* Chloride 84.3 L Carbon Dioxide 3 L* BUN 48 H Creatinine 1.8 H Glucose 1779 H* POC Glucose Lactic Acid Calcium Phosphorus 21.70 H Magnesium 4.70 H Iron TIBC Direct Bilirubin AST ALT Alkaline Phosphatase Total Creatine Kinase 363 H CK-MB (CK-2) C-Reactive Protein Total Protein Albumin Vitamin B12 Salicylates Acetaminophen Miscellaneous Test Crossmatch 03/29/19 03/29/19 03/30/19 Unknown Unknown 00:11 WBC RBC Hgb Hct MCV MCH MCHC RDW Plt Count [place] % (Auto) Lymph # Seg Neuts % (Manual) Lymphocytes % (Manual) Nucleated RBC % Seg Neutrophils # Man Lymphocytes # (Manual) Monocytes # (Manual) PT INR APTT D-Dimer POC ABG pH ABG pH POC ABG pCO2 POC ABG pO2 ABG pO2 ABG HCO3 ABG O2 Saturation ABG Base Excess ABG Hemoglobin VBG pH Oxyhemoglobin Sodium 122 L Potassium 7.9 H* 6.4 H* Chloride 75.3 L 89.7 L Carbon Dioxide 3 L* 12 L D BUN 52 H 46 H Creatinine 2.0 H 1.7 H Glucose 2043 H* 1591 H* POC Glucose Lactic Acid Calcium 7.8 L Phosphorus 19.30 H Magnesium 3.90 H Iron TIBC Direct Bilirubin AST ALT Alkaline Phosphatase Total Creatine Kinase CK-MB (CK-2) C-Reactive Protein Total Protein Albumin Vitamin B12 Salicylates Acetaminophen Miscellaneous Test Crossmatch 03/30/19 03/30/19 03/30/19 00:11 02:14 02:14 WBC RBC Hgb Hct MCV MCH MCHC RDW Plt Count [place] % (Auto) Lymph # Seg Neuts % (Manual) Lymphocytes % (Manual) Nucleated RBC % Seg Neutrophils # Man Lymphocytes # (Manual) Monocytes # (Manual) PT INR APTT D-Dimer POC ABG pH ABG pH POC ABG pCO2 POC ABG pO2 ABG pO2 ABG HCO3 ABG O2 Saturation ABG Base Excess ABG Hemoglobin VBG pH Oxyhemoglobin Sodium Potassium Chloride Carbon Dioxide 9 L* BUN 45 H Creatinine 1.7 H Glucose 1155 H* POC Glucose Lactic Acid Calcium 7.9 L Phosphorus 10.90 H D 5.30 H D Magnesium 3.10 H 2.90 H Iron TIBC Direct Bilirubin AST ALT Alkaline Phosphatase Total Creatine Kinase CK-MB (CK-2) C-Reactive Protein Total Protein Albumin Vitamin B12 Salicylates Acetaminophen Miscellaneous Test Crossmatch 03/30/19 03/30/19 03/30/19 03:15 03:30 04:23 WBC 18.0 H RBC 2.31 L Hgb 7.3 L Hct 23.8 L D MCV 103 H MCH MCHC RDW 17.1 H Plt Count [place] % (Auto) Lymph # Seg Neuts % (Manual) 79.0 H Lymphocytes % (Manual) Nucleated RBC % Seg Neutrophils # Man 14.2 H Lymphocytes # (Manual) Monocytes # (Manual) PT INR APTT D-Dimer POC ABG pH 7.251 L ABG pH POC ABG pCO2 POC ABG pO2 156 H ABG pO2 ABG HCO3 ABG O2 Saturation ABG Base Excess ABG Hemoglobin VBG pH Oxyhemoglobin Sodium Potassium Chloride Carbon Dioxide BUN Creatinine Glucose POC Glucose Lactic Acid Calcium Phosphorus Magnesium Iron TIBC Direct Bilirubin AST ALT Alkaline Phosphatase Total Creatine Kinase CK-MB (CK-2) C-Reactive Protein Total Protein Albumin Vitamin B12 Salicylates Acetaminophen Miscellaneous Test Crossmatch See Detail 03/30/19 03/30/19 03/30/19 05:26 05:26 10:38 WBC RBC Hgb Hct MCV MCH MCHC RDW Plt Count [place] % (Auto) Lymph # Seg Neuts % (Manual) Lymphocytes % (Manual) Nucleated RBC % Seg Neutrophils # Man Lymphocytes # (Manual) Monocytes # (Manual) PT INR APTT D-Dimer POC ABG pH ABG pH POC ABG pCO2 POC ABG pO2 ABG pO2 ABG HCO3 ABG O2 Saturation ABG Base Excess ABG Hemoglobin VBG pH Oxyhemoglobin Sodium 158 H D Potassium 3.5 L Chloride 109.3 H Carbon Dioxide 19 L D BUN 40 H Creatinine 1.5 H Glucose 760 H* POC Glucose 380 H Lactic Acid Calcium 7.3 L Phosphorus Magnesium 2.60 H Iron TIBC Direct Bilirubin AST 05326 H ALT 2156 H Alkaline Phosphatase 271 H Total Creatine Kinase 2465 H CK-MB (CK-2) 52.7 H C-Reactive Protein Total Protein 4.5 L Albumin 2.4 L Vitamin B12 Salicylates Acetaminophen Miscellaneous Test Crossmatch 03/30/19 03/30/19 03/30/19 11:08 12:25 12:57 WBC RBC Hgb Hct MCV MCH MCHC RDW Plt Count [place] % (Auto) Lymph # Seg Neuts % (Manual) Lymphocytes % (Manual) Nucleated RBC % Seg Neutrophils # Man Lymphocytes # (Manual) Monocytes # (Manual) PT INR APTT D-Dimer POC ABG pH ABG pH POC ABG pCO2 POC ABG pO2 ABG pO2 ABG HCO3 ABG O2 Saturation ABG Base Excess ABG Hemoglobin VBG pH Oxyhemoglobin Sodium 156 H Potassium 3.2 L Chloride 116.4 H Carbon Dioxide 21 L BUN 37 H Creatinine Glucose 162 H POC Glucose 263 H 196 H Lactic Acid Calcium 7.2 L Phosphorus Magnesium Iron TIBC Direct Bilirubin AST ALT Alkaline Phosphatase Total Creatine Kinase CK-MB (CK-2) C-Reactive Protein Total Protein Albumin Vitamin B12 Salicylates Acetaminophen Miscellaneous Test Crossmatch 03/30/19 03/30/19 03/30/19 12:57 12:57 12:57 WBC RBC Hgb Hct MCV MCH MCHC RDW Plt Count [place] % (Auto) Lymph # Seg Neuts % (Manual) Lymphocytes % (Manual) Nucleated RBC % Seg Neutrophils # Man Lymphocytes # (Manual) Monocytes # (Manual) PT 21.0 H INR 1.86 H APTT D-Dimer POC ABG pH ABG pH POC ABG pCO2 POC ABG pO2 ABG pO2 ABG HCO3 ABG O2 Saturation ABG Base Excess ABG Hemoglobin VBG pH Oxyhemoglobin Sodium Potassium Chloride Carbon Dioxide BUN Creatinine Glucose POC Glucose Lactic Acid 9.00 H* Calcium Phosphorus Magnesium Iron TIBC Direct Bilirubin AST ALT Alkaline Phosphatase Total Creatine Kinase CK-MB (CK-2) C-Reactive Protein 2.40 H Total Protein Albumin Vitamin B12 Salicylates Acetaminophen Miscellaneous Test Crossmatch 03/30/19 03/30/19 03/30/19 13:23 14:00 14:47 WBC RBC Hgb Hct MCV MCH MCHC RDW Plt Count [place] % (Auto) Lymph # Seg Neuts % (Manual) Lymphocytes % (Manual) Nucleated RBC % Seg Neutrophils # Man Lymphocytes # (Manual) Monocytes # (Manual) PT INR APTT D-Dimer POC ABG pH ABG pH POC ABG pCO2 POC ABG pO2 ABG pO2 ABG HCO3 ABG O2 Saturation ABG Base Excess ABG Hemoglobin VBG pH Oxyhemoglobin Sodium Potassium Chloride Carbon Dioxide BUN Creatinine Glucose POC Glucose 176 H 245 H Lactic Acid Calcium Phosphorus Magnesium Iron TIBC Direct Bilirubin AST ALT Alkaline Phosphatase Total Creatine Kinase CK-MB (CK-2) C-Reactive Protein Total Protein Albumin Vitamin B12 Salicylates Acetaminophen Miscellaneous Test Flexitest 1 H Crossmatch 03/30/19 03/30/19 03/30/19 16:11 17:11 17:46 WBC RBC Hgb Hct MCV MCH MCHC RDW Plt Count [place] % (Auto) Lymph # Seg Neuts % (Manual) Lymphocytes % (Manual) Nucleated RBC % Seg Neutrophils # Man Lymphocytes # (Manual) Monocytes # (Manual) PT INR APTT D-Dimer POC ABG pH ABG pH POC ABG pCO2 POC ABG pO2 ABG pO2 ABG HCO3 ABG O2 Saturation ABG Base Excess ABG Hemoglobin VBG pH Oxyhemoglobin Sodium Potassium Chloride Carbon Dioxide BUN Creatinine Glucose POC Glucose 181 H 167 H 125 H Lactic Acid Calcium Phosphorus Magnesium Iron TIBC Direct Bilirubin AST ALT Alkaline Phosphatase Total Creatine Kinase CK-MB (CK-2) C-Reactive Protein Total Protein Albumin Vitamin B12 Salicylates Acetaminophen Miscellaneous Test Crossmatch 03/30/19 03/30/19 03/30/19 18:59 21:31 22:19 WBC RBC Hgb Hct MCV MCH MCHC RDW Plt Count [place] % (Auto) Lymph # Seg Neuts % (Manual) Lymphocytes % (Manual) Nucleated RBC % Seg Neutrophils # Man Lymphocytes # (Manual) Monocytes # (Manual) PT INR APTT D-Dimer POC ABG pH ABG pH POC ABG pCO2 POC ABG pO2 ABG pO2 ABG HCO3 ABG O2 Saturation ABG Base Excess ABG Hemoglobin VBG pH Oxyhemoglobin Sodium Potassium Chloride Carbon Dioxide BUN Creatinine Glucose POC Glucose 140 H 166 H 115 H Lactic Acid Calcium Phosphorus Magnesium Iron TIBC Direct Bilirubin AST ALT Alkaline Phosphatase Total Creatine Kinase CK-MB (CK-2) C-Reactive Protein Total Protein Albumin Vitamin B12 Salicylates Acetaminophen Miscellaneous Test Crossmatch 03/30/19 03/30/19 03/30/19 23:13 Unknown Unknown WBC RBC Hgb Hct MCV MCH MCHC RDW Plt Count [place] % (Auto) Lymph # Seg Neuts % (Manual) Lymphocytes % (Manual) Nucleated RBC % Seg Neutrophils # Man Lymphocytes # (Manual) Monocytes # (Manual) PT INR APTT D-Dimer POC ABG pH ABG pH POC ABG pCO2 POC ABG pO2 ABG pO2 47.8 L ABG HCO3 18.8 L ABG O2 Saturation 83.8 L ABG Base Excess -5.4 L ABG Hemoglobin 6.8 L VBG pH Oxyhemoglobin 81.8 L Sodium 157 H Potassium 3.3 L Chloride 117.9 H Carbon Dioxide 20 L BUN 36 H Creatinine Glucose 150 H POC Glucose 112 H Lactic Acid Calcium 7.2 L Phosphorus Magnesium Iron TIBC Direct Bilirubin AST ALT Alkaline Phosphatase Total Creatine Kinase CK-MB (CK-2) C-Reactive Protein Total Protein Albumin Vitamin B12 Salicylates Acetaminophen Miscellaneous Test Crossmatch 03/30/19 03/30/19 03/31/19 Unknown Unknown 00:03 WBC RBC Hgb Hct MCV MCH MCHC RDW Plt Count [place] % (Auto) Lymph # Seg Neuts % (Manual) Lymphocytes % (Manual) Nucleated RBC % Seg Neutrophils # Man Lymphocytes # (Manual) Monocytes # (Manual) PT INR APTT D-Dimer POC ABG pH ABG pH POC ABG pCO2 POC ABG pO2 ABG pO2 ABG HCO3 ABG O2 Saturation ABG Base Excess ABG Hemoglobin VBG pH Oxyhemoglobin Sodium Potassium Chloride Carbon Dioxide BUN Creatinine Glucose POC Glucose 188 H Lactic Acid Calcium Phosphorus Magnesium Iron TIBC Direct Bilirubin AST ALT Alkaline Phosphatase Total Creatine Kinase CK-MB (CK-2) C-Reactive Protein Total Protein Albumin Vitamin B12 Salicylates 0.8 L Acetaminophen < 5.0 L Miscellaneous Test Crossmatch 03/31/19 03/31/19 03/31/19 01:18 03:07 03:50 WBC RBC Hgb Hct MCV MCH MCHC RDW Plt Count [place] % (Auto) Lymph # Seg Neuts % (Manual) Lymphocytes % (Manual) Nucleated RBC % Seg Neutrophils # Man Lymphocytes # (Manual) Monocytes # (Manual) PT INR APTT D-Dimer POC ABG pH ABG pH 7.525 H POC ABG pCO2 POC ABG pO2 ABG pO2 178.0 H ABG HCO3 19.5 L ABG O2 Saturation 99.2 H ABG Base Excess -3.1 L ABG Hemoglobin 5.8 L VBG pH Oxyhemoglobin Sodium Potassium Chloride Carbon Dioxide BUN Creatinine Glucose POC Glucose 114 H 107 H Lactic Acid Calcium Phosphorus Magnesium Iron TIBC Direct Bilirubin AST ALT Alkaline Phosphatase Total Creatine Kinase CK-MB (CK-2) C-Reactive Protein Total Protein Albumin Vitamin B12 Salicylates Acetaminophen Miscellaneous Test Crossmatch 03/31/19 03/31/19 03/31/19 03:51 03:51 04:05 WBC RBC 1.89 L Hgb 6.1 L Hct 18.2 L* MCV MCH MCHC RDW 17.7 H Plt Count 89 L [place] % (Auto) Lymph # Seg Neuts % (Manual) 86.0 H Lymphocytes % (Manual) 10.0 L Nucleated RBC % 1.0 H Seg Neutrophils # Man Lymphocytes # (Manual) 0.7 L Monocytes # (Manual) PT INR APTT D-Dimer POC ABG pH ABG pH POC ABG pCO2 POC ABG pO2 ABG pO2 ABG HCO3 ABG O2 Saturation ABG Base Excess ABG Hemoglobin VBG pH Oxyhemoglobin Sodium 151 H Potassium 3.2 L Chloride 119.4 H Carbon Dioxide 17 L BUN 35 H Creatinine Glucose 139 H POC Glucose 153 H Lactic Acid Calcium 7.1 L Phosphorus Magnesium Iron TIBC Direct Bilirubin AST ALT Alkaline Phosphatase Total Creatine Kinase CK-MB (CK-2) C-Reactive Protein Total Protein Albumin Vitamin B12 Salicylates Acetaminophen Miscellaneous Test Crossmatch 03/31/19 03/31/19 03/31/19 05:05 05:35 06:23 WBC RBC Hgb Hct MCV MCH MCHC RDW Plt Count [place] % (Auto) Lymph # Seg Neuts % (Manual) Lymphocytes % (Manual) Nucleated RBC % Seg Neutrophils # Man Lymphocytes # (Manual) Monocytes # (Manual) PT INR APTT D-Dimer POC ABG pH ABG pH POC ABG pCO2 POC ABG pO2 ABG pO2 ABG HCO3 ABG O2 Saturation ABG Base Excess ABG Hemoglobin VBG pH Oxyhemoglobin Sodium Potassium Chloride Carbon Dioxide BUN Creatinine Glucose POC Glucose 176 H 133 H Lactic Acid 3.20 H* Calcium Phosphorus Magnesium Iron TIBC Direct Bilirubin AST ALT Alkaline Phosphatase Total Creatine Kinase CK-MB (CK-2) C-Reactive Protein Total Protein Albumin Vitamin B12 Salicylates Acetaminophen Miscellaneous Test Crossmatch 03/31/19 03/31/19 03/31/19 07:50 07:51 08:20 WBC RBC Hgb Hct MCV MCH MCHC RDW Plt Count [place] % (Auto) Lymph # Seg Neuts % (Manual) Lymphocytes % (Manual) Nucleated RBC % Seg Neutrophils # Man Lymphocytes # (Manual) Monocytes # (Manual) PT INR APTT D-Dimer POC ABG pH ABG pH POC ABG pCO2 POC ABG pO2 ABG pO2 ABG HCO3 ABG O2 Saturation ABG Base Excess ABG Hemoglobin VBG pH Oxyhemoglobin Sodium Potassium Chloride Carbon Dioxide BUN Creatinine Glucose POC Glucose 135 H Lactic Acid 3.30 H* Calcium Phosphorus Magnesium Iron 26 L TIBC 193 L Direct Bilirubin AST ALT Alkaline Phosphatase Total Creatine Kinase CK-MB (CK-2) C-Reactive Protein Total Protein Albumin Vitamin B12 Salicylates Acetaminophen Miscellaneous Test Crossmatch 03/31/19 03/31/19 03/31/19 08:20 08:20 09:06 WBC RBC Hgb Hct MCV MCH MCHC RDW Plt Count [place] % (Auto) Lymph # Seg Neuts % (Manual) Lymphocytes % (Manual) Nucleated RBC % Seg Neutrophils # Man Lymphocytes # (Manual) Monocytes # (Manual) PT INR APTT D-Dimer POC ABG pH ABG pH POC ABG pCO2 POC ABG pO2 ABG pO2 ABG HCO3 ABG O2 Saturation ABG Base Excess ABG Hemoglobin VBG pH Oxyhemoglobin Sodium 153 H Potassium 3.0 L Chloride 118.9 H Carbon Dioxide 18 L BUN 37 H Creatinine Glucose 132 H POC Glucose 145 H Lactic Acid Calcium 7.1 L Phosphorus Magnesium Iron TIBC Direct Bilirubin AST ALT Alkaline Phosphatase Total Creatine Kinase CK-MB (CK-2) C-Reactive Protein Total Protein Albumin Vitamin B12 > 2000 H Salicylates Acetaminophen Miscellaneous Test Crossmatch 03/31/19 03/31/19 03/31/19 10:47 11:49 13:04 WBC RBC Hgb Hct MCV MCH MCHC RDW Plt Count [place] % (Auto) Lymph # Seg Neuts % (Manual) Lymphocytes % (Manual) Nucleated RBC % Seg Neutrophils # Man Lymphocytes # (Manual) Monocytes # (Manual) PT INR APTT D-Dimer POC ABG pH ABG pH POC ABG pCO2 POC ABG pO2 ABG pO2 ABG HCO3 ABG O2 Saturation ABG Base Excess ABG Hemoglobin VBG pH Oxyhemoglobin Sodium Potassium Chloride Carbon Dioxide BUN Creatinine Glucose POC Glucose 153 H 174 H 214 H Lactic Acid Calcium Phosphorus Magnesium Iron TIBC Direct Bilirubin AST ALT Alkaline Phosphatase Total Creatine Kinase CK-MB (CK-2) C-Reactive Protein Total Protein Albumin Vitamin B12 Salicylates Acetaminophen Miscellaneous Test Crossmatch 03/31/19 03/31/19 03/31/19 13:42 15:08 16:08 WBC RBC Hgb Hct MCV MCH MCHC RDW Plt Count [place] % (Auto) Lymph # Seg Neuts % (Manual) Lymphocytes % (Manual) Nucleated RBC % Seg Neutrophils # Man Lymphocytes # (Manual) Monocytes # (Manual) PT INR APTT D-Dimer POC ABG pH ABG pH POC ABG pCO2 POC ABG pO2 ABG pO2 ABG HCO3 ABG O2 Saturation ABG Base Excess ABG Hemoglobin VBG pH Oxyhemoglobin Sodium Potassium Chloride Carbon Dioxide BUN Creatinine Glucose POC Glucose 186 H 136 H 150 H Lactic Acid Calcium Phosphorus Magnesium Iron TIBC Direct Bilirubin AST ALT Alkaline Phosphatase Total Creatine Kinase CK-MB (CK-2) C-Reactive Protein Total Protein Albumin Vitamin B12 Salicylates Acetaminophen Miscellaneous Test Crossmatch 03/31/19 03/31/19 03/31/19 17:11 17:30 17:30 WBC RBC Hgb 7.7 L Hct 23.0 L MCV MCH MCHC RDW Plt Count [place] % (Auto) Lymph # Seg Neuts % (Manual) Lymphocytes % (Manual) Nucleated RBC % Seg Neutrophils # Man Lymphocytes # (Manual) Monocytes # (Manual) PT INR APTT D-Dimer POC ABG pH ABG pH POC ABG pCO2 POC ABG pO2 ABG pO2 ABG HCO3 ABG O2 Saturation ABG Base Excess ABG Hemoglobin VBG pH Oxyhemoglobin Sodium 153 H Potassium 3.5 L Chloride 119.3 H Carbon Dioxide 20 L BUN 34 H Creatinine Glucose 162 H POC Glucose 140 H Lactic Acid Calcium 7.6 L Phosphorus Magnesium Iron TIBC Direct Bilirubin AST ALT Alkaline Phosphatase Total Creatine Kinase CK-MB (CK-2) C-Reactive Protein Total Protein Albumin Vitamin B12 Salicylates Acetaminophen Miscellaneous Test Crossmatch 03/31/19 03/31/19 03/31/19 17:59 18:58 20:28 WBC RBC Hgb Hct MCV MCH MCHC RDW Plt Count [place] % (Auto) Lymph # Seg Neuts % (Manual) Lymphocytes % (Manual) Nucleated RBC % Seg Neutrophils # Man Lymphocytes # (Manual) Monocytes # (Manual) PT INR APTT D-Dimer POC ABG pH ABG pH POC ABG pCO2 POC ABG pO2 ABG pO2 ABG HCO3 ABG O2 Saturation ABG Base Excess ABG Hemoglobin VBG pH Oxyhemoglobin Sodium Potassium Chloride Carbon Dioxide BUN Creatinine Glucose POC Glucose 156 H 152 H 138 H Lactic Acid Calcium Phosphorus Magnesium Iron TIBC Direct Bilirubin AST ALT Alkaline Phosphatase Total Creatine Kinase CK-MB (CK-2) C-Reactive Protein Total Protein Albumin Vitamin B12 Salicylates Acetaminophen Miscellaneous Test Crossmatch 03/31/19 03/31/19 03/31/19 21:09 22:15 23:10 WBC RBC Hgb Hct MCV MCH MCHC RDW Plt Count [place] % (Auto) Lymph # Seg Neuts % (Manual) Lymphocytes % (Manual) Nucleated RBC % Seg Neutrophils # Man Lymphocytes # (Manual) Monocytes # (Manual) PT INR APTT D-Dimer POC ABG pH ABG pH POC ABG pCO2 POC ABG pO2 ABG pO2 ABG HCO3 ABG O2 Saturation ABG Base Excess ABG Hemoglobin VBG pH Oxyhemoglobin Sodium Potassium Chloride Carbon Dioxide BUN Creatinine Glucose POC Glucose 136 H 137 H 148 H Lactic Acid Calcium Phosphorus Magnesium Iron TIBC Direct Bilirubin AST ALT Alkaline Phosphatase Total Creatine Kinase CK-MB (CK-2) C-Reactive Protein Total Protein Albumin Vitamin B12 Salicylates Acetaminophen Miscellaneous Test Crossmatch 04/01/19 04/01/19 04/01/19 00:05 01:17 02:11 WBC RBC Hgb Hct MCV MCH MCHC RDW Plt Count [place] % (Auto) Lymph # Seg Neuts % (Manual) Lymphocytes % (Manual) Nucleated RBC % Seg Neutrophils # Man Lymphocytes # (Manual) Monocytes # (Manual) PT INR APTT D-Dimer POC ABG pH ABG pH POC ABG pCO2 POC ABG pO2 ABG pO2 ABG HCO3 ABG O2 Saturation ABG Base Excess ABG Hemoglobin VBG pH Oxyhemoglobin Sodium Potassium Chloride Carbon Dioxide BUN Creatinine Glucose POC Glucose 143 H 151 H 155 H Lactic Acid Calcium Phosphorus Magnesium Iron TIBC Direct Bilirubin AST ALT Alkaline Phosphatase Total Creatine Kinase CK-MB (CK-2) C-Reactive Protein Total Protein Albumin Vitamin B12 Salicylates Acetaminophen Miscellaneous Test Crossmatch 04/01/19 04/01/19 04/01/19 03:12 04:03 04:16 WBC RBC Hgb Hct MCV MCH MCHC RDW Plt Count [place] % (Auto) Lymph # Seg Neuts % (Manual) Lymphocytes % (Manual) Nucleated RBC % Seg Neutrophils # Man Lymphocytes # (Manual) Monocytes # (Manual) PT INR APTT D-Dimer POC ABG pH ABG pH POC ABG pCO2 POC ABG pO2 ABG pO2 ABG HCO3 ABG O2 Saturation ABG Base Excess ABG Hemoglobin VBG pH Oxyhemoglobin Sodium Potassium Chloride Carbon Dioxide BUN Creatinine Glucose POC Glucose 140 H 143 H 142 H Lactic Acid Calcium Phosphorus Magnesium Iron TIBC Direct Bilirubin AST ALT Alkaline Phosphatase Total Creatine Kinase CK-MB (CK-2) C-Reactive Protein Total Protein Albumin Vitamin B12 Salicylates Acetaminophen Miscellaneous Test Crossmatch 04/01/19 04/01/19 04/01/19 05:01 05:01 05:08 WBC RBC 2.05 L Hgb 6.8 L Hct 20.5 L MCV 100 H MCH 33 H MCHC RDW 17.7 H Plt Count 53 L [place] % (Auto) Lymph # Seg Neuts % (Manual) 71.0 H Lymphocytes % (Manual) Nucleated RBC % Seg Neutrophils # Man Lymphocytes # (Manual) Monocytes # (Manual) PT INR APTT D-Dimer POC ABG pH ABG pH POC ABG pCO2 POC ABG pO2 ABG pO2 ABG HCO3 ABG O2 Saturation ABG Base Excess ABG Hemoglobin VBG pH Oxyhemoglobin Sodium Potassium Chloride Carbon Dioxide BUN Creatinine Glucose POC Glucose 119 H Lactic Acid Calcium Phosphorus Magnesium Iron TIBC Direct Bilirubin 0.3 H AST 4601 H ALT 1542 H Alkaline Phosphatase 185 H Total Creatine Kinase CK-MB (CK-2) C-Reactive Protein Total Protein 3.8 L Albumin 1.6 L Vitamin B12 Salicylates Acetaminophen Miscellaneous Test Crossmatch 04/01/19 04/01/19 04/01/19 05:23 06:37 08:15 WBC RBC Hgb Hct MCV MCH MCHC RDW Plt Count [place] % (Auto) Lymph # Seg Neuts % (Manual) Lymphocytes % (Manual) Nucleated RBC % Seg Neutrophils # Man Lymphocytes # (Manual) Monocytes # (Manual) PT INR APTT D-Dimer POC ABG pH ABG pH POC ABG pCO2 POC ABG pO2 ABG pO2 ABG HCO3 ABG O2 Saturation ABG Base Excess ABG Hemoglobin VBG pH Oxyhemoglobin Sodium Potassium Chloride Carbon Dioxide BUN Creatinine Glucose POC Glucose 115 H 124 H 138 H Lactic Acid Calcium Phosphorus Magnesium Iron TIBC Direct Bilirubin AST ALT Alkaline Phosphatase Total Creatine Kinase CK-MB (CK-2) C-Reactive Protein Total Protein Albumin Vitamin B12 Salicylates Acetaminophen Miscellaneous Test Crossmatch 04/01/19 04/01/19 04/01/19 09:50 10:10 10:31 WBC RBC Hgb 6.5 L Hct 19.2 L* MCV MCH MCHC RDW Plt Count [place] % (Auto) Lymph # Seg Neuts % (Manual) Lymphocytes % (Manual) Nucleated RBC % Seg Neutrophils # Man Lymphocytes # (Manual) Monocytes # (Manual) PT INR APTT D-Dimer POC ABG pH ABG pH POC ABG pCO2 POC ABG pO2 ABG pO2 ABG HCO3 ABG O2 Saturation ABG Base Excess ABG Hemoglobin VBG pH Oxyhemoglobin Sodium 149 H Potassium 3.5 L Chloride 119.9 H Carbon Dioxide 21 L BUN 33 H Creatinine 0.5 L Glucose 142 H POC Glucose 185 H Lactic Acid Calcium 7.3 L Phosphorus Magnesium Iron TIBC Direct Bilirubin AST 3686 H ALT 1440 H Alkaline Phosphatase 185 H Total Creatine Kinase CK-MB (CK-2) C-Reactive Protein Total Protein 3.7 L Albumin 1.8 L Vitamin B12 Salicylates Acetaminophen Miscellaneous Test Crossmatch 04/01/19 04/01/19 04/01/19 11:35 13:05 14:35 WBC RBC Hgb Hct MCV MCH MCHC RDW Plt Count [place] % (Auto) Lymph # Seg Neuts % (Manual) Lymphocytes % (Manual) Nucleated RBC % Seg Neutrophils # Man Lymphocytes # (Manual) Monocytes # (Manual) PT INR APTT D-Dimer POC ABG pH ABG pH POC ABG pCO2 POC ABG pO2 ABG pO2 ABG HCO3 ABG O2 Saturation ABG Base Excess ABG Hemoglobin VBG pH Oxyhemoglobin Sodium Potassium Chloride Carbon Dioxide BUN Creatinine Glucose POC Glucose 201 H 169 H 134 H Lactic Acid Calcium Phosphorus Magnesium Iron TIBC Direct Bilirubin AST ALT Alkaline Phosphatase Total Creatine Kinase CK-MB (CK-2) C-Reactive Protein Total Protein Albumin Vitamin B12 Salicylates Acetaminophen Miscellaneous Test Crossmatch 04/01/19 04/01/19 04/01/19 17:13 17:14 18:30 WBC RBC Hgb Hct MCV MCH MCHC RDW Plt Count [place] % (Auto) Lymph # Seg Neuts % (Manual) Lymphocytes % (Manual) Nucleated RBC % Seg Neutrophils # Man Lymphocytes # (Manual) Monocytes # (Manual) PT INR APTT D-Dimer 5203.68 H POC ABG pH ABG pH POC ABG pCO2 POC ABG pO2 ABG pO2 ABG HCO3 ABG O2 Saturation ABG Base Excess ABG Hemoglobin VBG pH Oxyhemoglobin Sodium Potassium Chloride Carbon Dioxide BUN Creatinine Glucose POC Glucose 69 L 128 H Lactic Acid Calcium Phosphorus Magnesium Iron TIBC Direct Bilirubin AST ALT Alkaline Phosphatase Total Creatine Kinase CK-MB (CK-2) C-Reactive Protein Total Protein Albumin Vitamin B12 Salicylates Acetaminophen Miscellaneous Test Crossmatch 04/01/19 04/01/19 04/02/19 22:50 Unknown 03:40 WBC RBC Hgb Hct MCV MCH MCHC RDW Plt Count [place] % (Auto) Lymph # Seg Neuts % (Manual) Lymphocytes % (Manual) Nucleated RBC % Seg Neutrophils # Man Lymphocytes # (Manual) Monocytes # (Manual) PT INR APTT D-Dimer POC ABG pH ABG pH POC ABG pCO2 POC ABG pO2 ABG pO2 78.3 L 142.8 H ABG HCO3 15.5 L ABG O2 Saturation ABG Base Excess -3.5 L -8.2 L ABG Hemoglobin 6.8 L 8.2 L VBG pH Oxyhemoglobin 94.3 L Sodium Potassium Chloride Carbon Dioxide BUN Creatinine Glucose POC Glucose 342 H Lactic Acid Calcium Phosphorus Magnesium Iron TIBC Direct Bilirubin AST ALT Alkaline Phosphatase Total Creatine Kinase CK-MB (CK-2) C-Reactive Protein Total Protein Albumin Vitamin B12 Salicylates Acetaminophen Miscellaneous Test Crossmatch 04/02/19 04/02/19 04/02/19 03:49 06:50 07:48 WBC RBC 2.65 L Hgb 8.6 L Hct 25.1 L MCV MCH MCHC RDW 17.6 H Plt Count 48 L [place] % (Auto) Lymph # Seg Neuts % (Manual) Lymphocytes % (Manual) Nucleated RBC % Seg Neutrophils # Man Lymphocytes # (Manual) Monocytes # (Manual) PT INR APTT D-Dimer POC ABG pH ABG pH POC ABG pCO2 POC ABG pO2 ABG pO2 ABG HCO3 ABG O2 Saturation ABG Base Excess ABG Hemoglobin VBG pH Oxyhemoglobin Sodium Potassium Chloride Carbon Dioxide BUN Creatinine Glucose POC Glucose 247 H 200 H Lactic Acid Calcium Phosphorus Magnesium Iron TIBC Direct Bilirubin AST ALT Alkaline Phosphatase Total Creatine Kinase CK-MB (CK-2) C-Reactive Protein Total Protein Albumin Vitamin B12 Salicylates Acetaminophen Miscellaneous Test Crossmatch 04/02/19 04/02/19 04/02/19 07:48 11:18 14:07 WBC RBC Hgb Hct MCV MCH MCHC RDW Plt Count [place] % (Auto) Lymph # Seg Neuts % (Manual) Lymphocytes % (Manual) Nucleated RBC % Seg Neutrophils # Man Lymphocytes # (Manual) Monocytes # (Manual) PT INR APTT D-Dimer POC ABG pH ABG pH POC ABG pCO2 POC ABG pO2 ABG pO2 ABG HCO3 ABG O2 Saturation ABG Base Excess ABG Hemoglobin VBG pH Oxyhemoglobin Sodium Potassium 3.5 L Chloride 115.7 H Carbon Dioxide 19 L BUN 29 H Creatinine 0.5 L Glucose 159 H POC Glucose 154 H 149 H Lactic Acid Calcium 7.5 L Phosphorus Magnesium Iron TIBC Direct Bilirubin AST 1418 H ALT 1134 H Alkaline Phosphatase 242 H Total Creatine Kinase CK-MB (CK-2) C-Reactive Protein Total Protein 4.2 L Albumin 2.1 L Vitamin B12 Salicylates Acetaminophen Miscellaneous Test Crossmatch 04/02/19 04/02/19 04/02/19 18:09 19:46 23:05 WBC RBC Hgb Hct MCV MCH MCHC RDW Plt Count [place] % (Auto) Lymph # Seg Neuts % (Manual) Lymphocytes % (Manual) Nucleated RBC % Seg Neutrophils # Man Lymphocytes # (Manual) Monocytes # (Manual) PT INR APTT D-Dimer POC ABG pH ABG pH POC ABG pCO2 POC ABG pO2 ABG pO2 ABG HCO3 ABG O2 Saturation ABG Base Excess ABG Hemoglobin VBG pH Oxyhemoglobin Sodium Potassium Chloride Carbon Dioxide BUN Creatinine Glucose POC Glucose 188 H 209 H 247 H Lactic Acid Calcium Phosphorus Magnesium Iron TIBC Direct Bilirubin AST ALT Alkaline Phosphatase Total Creatine Kinase CK-MB (CK-2) C-Reactive Protein Total Protein Albumin Vitamin B12 Salicylates Acetaminophen Miscellaneous Test Crossmatch 04/03/19 04/03/19 04/03/19 02:58 03:40 03:40 WBC RBC 2.87 L Hgb 9.3 L Hct 27.0 L MCV MCH MCHC RDW 17.2 H Plt Count 65 L [place] % (Auto) 9.8 H Lymph # 1.1 L Seg Neuts % (Manual) Lymphocytes % (Manual) Nucleated RBC % Seg Neutrophils # Man Lymphocytes # (Manual) Monocytes # (Manual) PT INR APTT D-Dimer POC ABG pH ABG pH POC ABG pCO2 POC ABG pO2 ABG pO2 ABG HCO3 ABG O2 Saturation ABG Base Excess ABG Hemoglobin VBG pH Oxyhemoglobin Sodium 147 H Potassium 3.5 L Chloride 116.7 H Carbon Dioxide 18 L BUN Creatinine 0.4 L Glucose 150 H POC Glucose 166 H Lactic Acid Calcium 8.1 L Phosphorus 2.20 L Magnesium Iron TIBC Direct Bilirubin AST 594 H ALT 861 H Alkaline Phosphatase 299 H Total Creatine Kinase CK-MB (CK-2) C-Reactive Protein Total Protein 4.4 L Albumin 2.1 L Vitamin B12 Salicylates Acetaminophen Miscellaneous Test Crossmatch 04/03/19 04/03/19 04/03/19 05:35 07:02 08:23 WBC RBC Hgb Hct MCV MCH MCHC RDW Plt Count [place] % (Auto) Lymph # Seg Neuts % (Manual) Lymphocytes % (Manual) Nucleated RBC % Seg Neutrophils # Man Lymphocytes # (Manual) Monocytes # (Manual) PT INR APTT D-Dimer POC ABG pH ABG pH POC ABG pCO2 POC ABG pO2 ABG pO2 97.7 H ABG HCO3 19.3 L ABG O2 Saturation ABG Base Excess -5.0 L ABG Hemoglobin 8.0 L VBG pH Oxyhemoglobin Sodium Potassium Chloride Carbon Dioxide BUN Creatinine Glucose POC Glucose 135 H 132 H Lactic Acid Calcium Phosphorus Magnesium Iron TIBC Direct Bilirubin AST ALT Alkaline Phosphatase Total Creatine Kinase CK-MB (CK-2) C-Reactive Protein Total Protein Albumin Vitamin B12 Salicylates Acetaminophen Miscellaneous Test Crossmatch 04/03/19 04/03/19 04/03/19 11:58 15:11 17:53 WBC RBC Hgb Hct MCV MCH MCHC RDW Plt Count [place] % (Auto) Lymph # Seg Neuts % (Manual) Lymphocytes % (Manual) Nucleated RBC % Seg Neutrophils # Man Lymphocytes # (Manual) Monocytes # (Manual) PT INR APTT D-Dimer POC ABG pH ABG pH POC ABG pCO2 POC ABG pO2 ABG pO2 ABG HCO3 ABG O2 Saturation ABG Base Excess ABG Hemoglobin VBG pH Oxyhemoglobin Sodium Potassium Chloride Carbon Dioxide BUN Creatinine Glucose POC Glucose 179 H 213 H 223 H Lactic Acid Calcium Phosphorus Magnesium Iron TIBC Direct Bilirubin AST ALT Alkaline Phosphatase Total Creatine Kinase CK-MB (CK-2) C-Reactive Protein Total Protein Albumin Vitamin B12 Salicylates Acetaminophen Miscellaneous Test Crossmatch 04/03/19 04/04/19 04/04/19 23:06 02:36 06:41 WBC RBC Hgb Hct MCV MCH MCHC RDW Plt Count [place] % (Auto) Lymph # Seg Neuts % (Manual) Lymphocytes % (Manual) Nucleated RBC % Seg Neutrophils # Man Lymphocytes # (Manual) Monocytes # (Manual) PT INR APTT D-Dimer POC ABG pH ABG pH POC ABG pCO2 POC ABG pO2 ABG pO2 ABG HCO3 ABG O2 Saturation ABG Base Excess ABG Hemoglobin VBG pH Oxyhemoglobin Sodium Potassium Chloride Carbon Dioxide BUN Creatinine Glucose POC Glucose 189 H 157 H 131 H Lactic Acid Calcium Phosphorus Magnesium Iron TIBC Direct Bilirubin AST ALT Alkaline Phosphatase Total Creatine Kinase CK-MB (CK-2) C-Reactive Protein Total Protein Albumin Vitamin B12 Salicylates Acetaminophen Miscellaneous Test Crossmatch 04/04/19 04/04/19 04/04/19 11:42 15:45 18:21 WBC RBC Hgb Hct MCV MCH MCHC RDW Plt Count [place] % (Auto) Lymph # Seg Neuts % (Manual) Lymphocytes % (Manual) Nucleated RBC % Seg Neutrophils # Man Lymphocytes # (Manual) Monocytes # (Manual) PT INR APTT D-Dimer POC ABG pH ABG pH POC ABG pCO2 POC ABG pO2 ABG pO2 ABG HCO3 ABG O2 Saturation ABG Base Excess ABG Hemoglobin VBG pH Oxyhemoglobin Sodium Potassium Chloride Carbon Dioxide BUN Creatinine Glucose POC Glucose 233 H 236 H 255 H Lactic Acid Calcium Phosphorus Magnesium Iron TIBC Direct Bilirubin AST ALT Alkaline Phosphatase Total Creatine Kinase CK-MB (CK-2) C-Reactive Protein Total Protein Albumin Vitamin B12 Salicylates Acetaminophen Miscellaneous Test Crossmatch 04/04/19 04/05/19 04/05/19 21:21 03:06 06:05 WBC RBC 2.68 L Hgb 8.5 L Hct 26.3 L MCV 98 H MCH MCHC RDW 17.4 H Plt Count [place] % (Auto) Lymph # Seg Neuts % (Manual) Lymphocytes % (Manual) Nucleated RBC % Seg Neutrophils # Man Lymphocytes # (Manual) Monocytes # (Manual) PT INR APTT D-Dimer POC ABG pH ABG pH POC ABG pCO2 POC ABG pO2 ABG pO2 ABG HCO3 ABG O2 Saturation ABG Base Excess ABG Hemoglobin VBG pH Oxyhemoglobin Sodium Potassium Chloride Carbon Dioxide BUN Creatinine Glucose POC Glucose 132 H 161 H Lactic Acid Calcium Phosphorus Magnesium Iron TIBC Direct Bilirubin AST ALT Alkaline Phosphatase Total Creatine Kinase CK-MB (CK-2) C-Reactive Protein Total Protein Albumin Vitamin B12 Salicylates Acetaminophen Miscellaneous Test Crossmatch 04/05/19 04/05/19 04/05/19 06:05 06:49 10:23 WBC RBC Hgb Hct MCV MCH MCHC RDW Plt Count [place] % (Auto) Lymph # Seg Neuts % (Manual) Lymphocytes % (Manual) Nucleated RBC % Seg Neutrophils # Man Lymphocytes # (Manual) Monocytes # (Manual) PT INR APTT D-Dimer POC ABG pH ABG pH POC ABG pCO2 POC ABG pO2 ABG pO2 ABG HCO3 ABG O2 Saturation ABG Base Excess ABG Hemoglobin VBG pH Oxyhemoglobin Sodium Potassium Chloride 112.5 H Carbon Dioxide BUN Creatinine 0.2 L Glucose 237 H POC Glucose 283 H 296 H Lactic Acid Calcium 7.9 L Phosphorus Magnesium Iron TIBC Direct Bilirubin AST ALT Alkaline Phosphatase Total Creatine Kinase CK-MB (CK-2) C-Reactive Protein Total Protein Albumin Vitamin B12 Salicylates Acetaminophen Miscellaneous Test Crossmatch 04/05/19 04/05/19 04/05/19 14:46 18:19 20:35 WBC RBC Hgb Hct MCV MCH MCHC RDW Plt Count [place] % (Auto) Lymph # Seg Neuts % (Manual) Lymphocytes % (Manual) Nucleated RBC % Seg Neutrophils # Man Lymphocytes # (Manual) Monocytes # (Manual) PT INR APTT D-Dimer POC ABG pH ABG pH POC ABG pCO2 POC ABG pO2 ABG pO2 ABG HCO3 ABG O2 Saturation ABG Base Excess ABG Hemoglobin VBG pH Oxyhemoglobin Sodium Potassium Chloride Carbon Dioxide BUN Creatinine Glucose POC Glucose 225 H 259 H 236 H Lactic Acid Calcium Phosphorus Magnesium Iron TIBC Direct Bilirubin AST ALT Alkaline Phosphatase Total Creatine Kinase CK-MB (CK-2) C-Reactive Protein Total Protein Albumin Vitamin B12 Salicylates Acetaminophen Miscellaneous Test Crossmatch 04/05/19 04/06/19 04/06/19 23:11 00:06 03:14 WBC RBC Hgb Hct MCV MCH MCHC RDW Plt Count [place] % (Auto) Lymph # Seg Neuts % (Manual) Lymphocytes % (Manual) Nucleated RBC % Seg Neutrophils # Man Lymphocytes # (Manual) Monocytes # (Manual) PT INR APTT D-Dimer 4526.86 H POC ABG pH ABG pH POC ABG pCO2 POC ABG pO2 ABG pO2 ABG HCO3 ABG O2 Saturation ABG Base Excess ABG Hemoglobin VBG pH Oxyhemoglobin Sodium Potassium Chloride Carbon Dioxide BUN Creatinine Glucose POC Glucose 205 H 228 H Lactic Acid Calcium Phosphorus Magnesium Iron TIBC Direct Bilirubin AST ALT Alkaline Phosphatase Total Creatine Kinase CK-MB (CK-2) C-Reactive Protein Total Protein Albumin Vitamin B12 Salicylates Acetaminophen Miscellaneous Test Crossmatch 04/06/19 04/06/19 04/06/19 05:20 05:20 07:57 WBC 15.1 H RBC 2.90 L Hgb 9.1 L Hct 28.0 L MCV MCH MCHC RDW 17.3 H Plt Count [place] % (Auto) Lymph # Seg Neuts % (Manual) Lymphocytes % (Manual) Nucleated RBC % Seg Neutrophils # Man Lymphocytes # (Manual) Monocytes # (Manual) PT INR APTT D-Dimer POC ABG pH ABG pH POC ABG pCO2 POC ABG pO2 ABG pO2 ABG HCO3 ABG O2 Saturation ABG Base Excess ABG Hemoglobin VBG pH Oxyhemoglobin Sodium Potassium Chloride Carbon Dioxide BUN Creatinine 0.2 L Glucose 161 H POC Glucose 191 H Lactic Acid Calcium 8.0 L Phosphorus Magnesium Iron TIBC Direct Bilirubin AST ALT Alkaline Phosphatase Total Creatine Kinase CK-MB (CK-2) C-Reactive Protein Total Protein Albumin Vitamin B12 Salicylates Acetaminophen Miscellaneous Test Crossmatch 04/06/19 04/06/19 04/06/19 12:09 18:24 22:07 WBC RBC Hgb Hct MCV MCH MCHC RDW Plt Count [place] % (Auto) Lymph # Seg Neuts % (Manual) Lymphocytes % (Manual) Nucleated RBC % Seg Neutrophils # Man Lymphocytes # (Manual) Monocytes # (Manual) PT INR APTT D-Dimer POC ABG pH ABG pH POC ABG pCO2 POC ABG pO2 ABG pO2 ABG HCO3 ABG O2 Saturation ABG Base Excess ABG Hemoglobin VBG pH Oxyhemoglobin Sodium Potassium Chloride Carbon Dioxide BUN Creatinine Glucose POC Glucose 143 H 161 H 140 H Lactic Acid Calcium Phosphorus Magnesium Iron TIBC Direct Bilirubin AST ALT Alkaline Phosphatase Total Creatine Kinase CK-MB (CK-2) C-Reactive Protein Total Protein Albumin Vitamin B12 Salicylates Acetaminophen Miscellaneous Test Crossmatch 04/07/19 04/07/19 04/07/19 03:00 04:30 04:30 WBC 13.0 H RBC 2.65 L Hgb 8.3 L Hct 25.5 L MCV MCH MCHC RDW 17.0 H Plt Count [place] % (Auto) Lymph # Seg Neuts % (Manual) Lymphocytes % (Manual) Nucleated RBC % Seg Neutrophils # Man Lymphocytes # (Manual) Monocytes # (Manual) PT INR APTT D-Dimer POC ABG pH ABG pH POC ABG pCO2 POC ABG pO2 ABG pO2 ABG HCO3 ABG O2 Saturation ABG Base Excess ABG Hemoglobin VBG pH Oxyhemoglobin Sodium Potassium Chloride Carbon Dioxide BUN Creatinine 0.2 L Glucose 208 H POC Glucose 224 H Lactic Acid Calcium 7.7 L Phosphorus Magnesium Iron TIBC Direct Bilirubin AST ALT Alkaline Phosphatase Total Creatine Kinase CK-MB (CK-2) C-Reactive Protein Total Protein Albumin Vitamin B12 Salicylates Acetaminophen Miscellaneous Test Crossmatch 04/07/19 04/07/19 04/07/19 05:47 08:27 10:33 WBC RBC Hgb Hct MCV MCH MCHC RDW Plt Count [place] % (Auto) Lymph # Seg Neuts % (Manual) Lymphocytes % (Manual) Nucleated RBC % Seg Neutrophils # Man Lymphocytes # (Manual) Monocytes # (Manual) PT INR APTT D-Dimer POC ABG pH ABG pH POC ABG pCO2 POC ABG pO2 ABG pO2 ABG HCO3 ABG O2 Saturation ABG Base Excess ABG Hemoglobin VBG pH Oxyhemoglobin Sodium Potassium Chloride Carbon Dioxide BUN Creatinine Glucose POC Glucose 225 H 176 H 207 H Lactic Acid Calcium Phosphorus Magnesium Iron TIBC Direct Bilirubin AST ALT Alkaline Phosphatase Total Creatine Kinase CK-MB (CK-2) C-Reactive Protein Total Protein Albumin Vitamin B12 Salicylates Acetaminophen Miscellaneous Test Crossmatch 04/07/19 04/07/19 04/07/19 14:13 18:32 22:42 WBC RBC Hgb Hct MCV MCH MCHC RDW Plt Count [place] % (Auto) Lymph # Seg Neuts % (Manual) Lymphocytes % (Manual) Nucleated RBC % Seg Neutrophils # Man Lymphocytes # (Manual) Monocytes # (Manual) PT INR APTT D-Dimer POC ABG pH ABG pH POC ABG pCO2 POC ABG pO2 ABG pO2 ABG HCO3 ABG O2 Saturation ABG Base Excess ABG Hemoglobin VBG pH Oxyhemoglobin Sodium Potassium Chloride Carbon Dioxide BUN Creatinine Glucose POC Glucose 219 H 227 H 238 H Lactic Acid Calcium Phosphorus Magnesium Iron TIBC Direct Bilirubin AST ALT Alkaline Phosphatase Total Creatine Kinase CK-MB (CK-2) C-Reactive Protein Total Protein Albumin Vitamin B12 Salicylates Acetaminophen Miscellaneous Test Crossmatch 04/08/19 04/08/19 04/08/19 02:31 05:37 14:10 WBC RBC Hgb Hct MCV MCH MCHC RDW Plt Count [place] % (Auto) Lymph # Seg Neuts % (Manual) Lymphocytes % (Manual) Nucleated RBC % Seg Neutrophils # Man Lymphocytes # (Manual) Monocytes # (Manual) PT INR APTT D-Dimer POC ABG pH ABG pH POC ABG pCO2 POC ABG pO2 ABG pO2 ABG HCO3 ABG O2 Saturation ABG Base Excess ABG Hemoglobin VBG pH Oxyhemoglobin Sodium Potassium Chloride Carbon Dioxide BUN Creatinine Glucose POC Glucose 194 H 194 H 139 H Lactic Acid Calcium Phosphorus Magnesium Iron TIBC Direct Bilirubin AST ALT Alkaline Phosphatase Total Creatine Kinase CK-MB (CK-2) C-Reactive Protein Total Protein Albumin Vitamin B12 Salicylates Acetaminophen Miscellaneous Test Crossmatch 04/08/19 04/08/19 04/09/19 17:43 23:20 03:28 WBC RBC Hgb Hct MCV MCH MCHC RDW Plt Count [place] % (Auto) Lymph # Seg Neuts % (Manual) Lymphocytes % (Manual) Nucleated RBC % Seg Neutrophils # Man Lymphocytes # (Manual) Monocytes # (Manual) PT INR APTT D-Dimer POC ABG pH ABG pH POC ABG pCO2 POC ABG pO2 ABG pO2 ABG HCO3 ABG O2 Saturation ABG Base Excess ABG Hemoglobin VBG pH Oxyhemoglobin Sodium Potassium Chloride Carbon Dioxide BUN Creatinine Glucose POC Glucose 261 H 277 H 301 H Lactic Acid Calcium Phosphorus Magnesium Iron TIBC Direct Bilirubin AST ALT Alkaline Phosphatase Total Creatine Kinase CK-MB (CK-2) C-Reactive Protein Total Protein Albumin Vitamin B12 Salicylates Acetaminophen Miscellaneous Test Crossmatch 04/09/19 04/09/19 04/09/19 05:35 05:35 05:35 WBC RBC 2.78 L Hgb 9.0 L Hct 26.7 L MCV MCH MCHC RDW 17.0 H Plt Count [place] % (Auto) Lymph # Seg Neuts % (Manual) Lymphocytes % (Manual) Nucleated RBC % Seg Neutrophils # Man Lymphocytes # (Manual) Monocytes # (Manual) PT INR APTT D-Dimer POC ABG pH ABG pH POC ABG pCO2 POC ABG pO2 ABG pO2 ABG HCO3 ABG O2 Saturation ABG Base Excess ABG Hemoglobin VBG pH Oxyhemoglobin Sodium Potassium Chloride Carbon Dioxide 31 H BUN Creatinine 0.2 L Glucose 218 H POC Glucose 240 H Lactic Acid Calcium Phosphorus Magnesium Iron TIBC Direct Bilirubin AST ALT Alkaline Phosphatase Total Creatine Kinase CK-MB (CK-2) C-Reactive Protein Total Protein Albumin Vitamin B12 Salicylates Acetaminophen Miscellaneous Test Crossmatch 04/09/19 04/09/19 04/09/19 09:01 12:23 17:33 WBC RBC Hgb Hct MCV MCH MCHC RDW Plt Count [place] % (Auto) Lymph # Seg Neuts % (Manual) Lymphocytes % (Manual) Nucleated RBC % Seg Neutrophils # Man Lymphocytes # (Manual) Monocytes # (Manual) PT INR APTT D-Dimer POC ABG pH ABG pH POC ABG pCO2 POC ABG pO2 ABG pO2 ABG HCO3 ABG O2 Saturation ABG Base Excess ABG Hemoglobin VBG pH Oxyhemoglobin Sodium Potassium Chloride Carbon Dioxide BUN Creatinine Glucose POC Glucose 160 H 162 H 149 H Lactic Acid Calcium Phosphorus Magnesium Iron TIBC Direct Bilirubin AST ALT Alkaline Phosphatase Total Creatine Kinase CK-MB (CK-2) C-Reactive Protein Total Protein Albumin Vitamin B12 Salicylates Acetaminophen Miscellaneous Test Crossmatch 04/09/19 04/09/19 04/10/19 21:26 22:28 03:16 WBC RBC Hgb Hct MCV MCH MCHC RDW Plt Count [place] % (Auto) Lymph # Seg Neuts % (Manual) Lymphocytes % (Manual) Nucleated RBC % Seg Neutrophils # Man Lymphocytes # (Manual) Monocytes # (Manual) PT INR APTT D-Dimer POC ABG pH ABG pH POC ABG pCO2 POC ABG pO2 ABG pO2 ABG HCO3 ABG O2 Saturation ABG Base Excess ABG Hemoglobin VBG pH Oxyhemoglobin Sodium Potassium Chloride Carbon Dioxide BUN Creatinine Glucose POC Glucose 196 H 224 H 163 H Lactic Acid Calcium Phosphorus Magnesium Iron TIBC Direct Bilirubin AST ALT Alkaline Phosphatase Total Creatine Kinase CK-MB (CK-2) C-Reactive Protein Total Protein Albumin Vitamin B12 Salicylates Acetaminophen Miscellaneous Test Crossmatch 04/10/19 04/10/19 04/10/19 04:15 04:15 05:30 WBC RBC 2.88 L Hgb 9.2 L Hct 27.9 L MCV MCH MCHC RDW 17.0 H Plt Count 454 H [place] % (Auto) Lymph # Seg Neuts % (Manual) Lymphocytes % (Manual) Nucleated RBC % Seg Neutrophils # Man Lymphocytes # (Manual) Monocytes # (Manual) PT INR APTT D-Dimer POC ABG pH ABG pH POC ABG pCO2 POC ABG pO2 ABG pO2 ABG HCO3 ABG O2 Saturation ABG Base Excess ABG Hemoglobin VBG pH Oxyhemoglobin Sodium Potassium Chloride Carbon Dioxide 32 H BUN Creatinine 0.2 L Glucose 126 H POC Glucose 135 H Lactic Acid Calcium Phosphorus Magnesium Iron TIBC Direct Bilirubin AST ALT Alkaline Phosphatase Total Creatine Kinase CK-MB (CK-2) C-Reactive Protein Total Protein Albumin Vitamin B12 Salicylates Acetaminophen Miscellaneous Test Crossmatch 04/10/19 04/10/19 04/10/19 12:14 15:29 23:38 WBC RBC Hgb Hct MCV MCH MCHC RDW Plt Count [place] % (Auto) Lymph # Seg Neuts % (Manual) Lymphocytes % (Manual) Nucleated RBC % Seg Neutrophils # Man Lymphocytes # (Manual) Monocytes # (Manual) PT INR APTT D-Dimer POC ABG pH ABG pH POC ABG pCO2 POC ABG pO2 ABG pO2 ABG HCO3 ABG O2 Saturation ABG Base Excess ABG Hemoglobin VBG pH Oxyhemoglobin Sodium Potassium Chloride Carbon Dioxide BUN Creatinine Glucose POC Glucose 109 H 149 H 268 H Lactic Acid Calcium Phosphorus Magnesium Iron TIBC Direct Bilirubin AST ALT Alkaline Phosphatase Total Creatine Kinase CK-MB (CK-2) C-Reactive Protein Total Protein Albumin Vitamin B12 Salicylates Acetaminophen Miscellaneous Test Crossmatch 04/11/19 04/11/19 04/11/19 05:27 12:08 18:08 WBC RBC Hgb Hct MCV MCH MCHC RDW Plt Count [place] % (Auto) Lymph # Seg Neuts % (Manual) Lymphocytes % (Manual) Nucleated RBC % Seg Neutrophils # Man Lymphocytes # (Manual) Monocytes # (Manual) PT INR APTT D-Dimer POC ABG pH ABG pH POC ABG pCO2 POC ABG pO2 ABG pO2 ABG HCO3 ABG O2 Saturation ABG Base Excess ABG Hemoglobin VBG pH Oxyhemoglobin Sodium Potassium Chloride Carbon Dioxide BUN Creatinine Glucose POC Glucose 109 H 185 H 190 H Lactic Acid Calcium Phosphorus Magnesium Iron TIBC Direct Bilirubin AST ALT Alkaline Phosphatase Total Creatine Kinase CK-MB (CK-2) C-Reactive Protein Total Protein Albumin Vitamin B12 Salicylates Acetaminophen Miscellaneous Test Crossmatch 04/11/19 04/12/19 04/12/19 23:23 06:00 11:42 WBC RBC Hgb Hct MCV MCH MCHC RDW Plt Count [place] % (Auto) Lymph # Seg Neuts % (Manual) Lymphocytes % (Manual) Nucleated RBC % Seg Neutrophils # Man Lymphocytes # (Manual) Monocytes # (Manual) PT INR APTT D-Dimer POC ABG pH ABG pH POC ABG pCO2 POC ABG pO2 ABG pO2 ABG HCO3 ABG O2 Saturation ABG Base Excess ABG Hemoglobin VBG pH Oxyhemoglobin Sodium Potassium Chloride Carbon Dioxide BUN Creatinine Glucose POC Glucose 127 H 201 H 161 H Lactic Acid Calcium Phosphorus Magnesium Iron TIBC Direct Bilirubin AST ALT Alkaline Phosphatase Total Creatine Kinase CK-MB (CK-2) C-Reactive Protein Total Protein Albumin Vitamin B12 Salicylates Acetaminophen Miscellaneous Test Crossmatch 04/12/19 04/12/19 04/12/19 17:56 20:07 21:59 WBC RBC Hgb Hct MCV MCH MCHC RDW Plt Count [place] % (Auto) Lymph # Seg Neuts % (Manual) Lymphocytes % (Manual) Nucleated RBC % Seg Neutrophils # Man Lymphocytes # (Manual) Monocytes # (Manual) PT INR APTT D-Dimer POC ABG pH ABG pH POC ABG pCO2 POC ABG pO2 ABG pO2 ABG HCO3 ABG O2 Saturation ABG Base Excess ABG Hemoglobin VBG pH Oxyhemoglobin Sodium Potassium Chloride Carbon Dioxide BUN Creatinine Glucose POC Glucose 145 H 158 H 203 H Lactic Acid Calcium Phosphorus Magnesium Iron TIBC Direct Bilirubin AST ALT Alkaline Phosphatase Total Creatine Kinase CK-MB (CK-2) C-Reactive Protein Total Protein Albumin Vitamin B12 Salicylates Acetaminophen Miscellaneous Test Crossmatch 04/12/19 04/13/19 04/13/19 23:37 08:50 08:50 WBC 15.7 H RBC 3.12 L Hgb Hct 30.2 L MCV MCH 33 H MCHC RDW 18.0 H Plt Count 678 H [place] % (Auto) Lymph # Seg Neuts % (Manual) Lymphocytes % (Manual) Nucleated RBC % Seg Neutrophils # Man Lymphocytes # (Manual) Monocytes # (Manual) PT INR APTT D-Dimer POC ABG pH ABG pH POC ABG pCO2 POC ABG pO2 ABG pO2 ABG HCO3 ABG O2 Saturation ABG Base Excess ABG Hemoglobin VBG pH Oxyhemoglobin Sodium Potassium Chloride Carbon Dioxide BUN Creatinine < 0.2 L Glucose 46 L POC Glucose 238 H Lactic Acid Calcium Phosphorus Magnesium Iron TIBC Direct Bilirubin AST ALT Alkaline Phosphatase Total Creatine Kinase CK-MB (CK-2) C-Reactive Protein Total Protein Albumin Vitamin B12 Salicylates Acetaminophen Miscellaneous Test Crossmatch 04/13/19 04/13/19 04/13/19 11:56 17:27 23:57 WBC RBC Hgb Hct MCV MCH MCHC RDW Plt Count [place] % (Auto) Lymph # Seg Neuts % (Manual) Lymphocytes % (Manual) Nucleated RBC % Seg Neutrophils # Man Lymphocytes # (Manual) Monocytes # (Manual) PT INR APTT D-Dimer POC ABG pH ABG pH POC ABG pCO2 POC ABG pO2 ABG pO2 ABG HCO3 ABG O2 Saturation ABG Base Excess ABG Hemoglobin VBG pH Oxyhemoglobin Sodium Potassium Chloride Carbon Dioxide BUN Creatinine Glucose POC Glucose 40 L 66 L 65 L Lactic Acid Calcium Phosphorus Magnesium Iron TIBC Direct Bilirubin AST ALT Alkaline Phosphatase Total Creatine Kinase CK-MB (CK-2) C-Reactive Protein Total Protein Albumin Vitamin B12 Salicylates Acetaminophen Miscellaneous Test Crossmatch 04/14/19 04/14/19 04/14/19 05:28 08:20 08:20 WBC 17.8 H RBC 3.26 L Hgb Hct MCV 98 H MCH MCHC RDW 18.3 H Plt Count 622 H [place] % (Auto) Lymph # Seg Neuts % (Manual) Lymphocytes % (Manual) Nucleated RBC % Seg Neutrophils # Man Lymphocytes # (Manual) Monocytes # (Manual) PT INR APTT D-Dimer POC ABG pH ABG pH POC ABG pCO2 POC ABG pO2 ABG pO2 ABG HCO3 ABG O2 Saturation ABG Base Excess ABG Hemoglobin VBG pH Oxyhemoglobin Sodium Potassium Chloride Carbon Dioxide BUN 6 L Creatinine < 0.2 L Glucose 154 H POC Glucose 149 H Lactic Acid Calcium Phosphorus Magnesium Iron TIBC Direct Bilirubin AST ALT Alkaline Phosphatase Total Creatine Kinase CK-MB (CK-2) C-Reactive Protein Total Protein Albumin Vitamin B12 Salicylates Acetaminophen Miscellaneous Test Crossmatch 04/14/19 04/14/19 04/14/19 12:16 17:54 23:35 WBC RBC Hgb Hct MCV MCH MCHC RDW Plt Count [place] % (Auto) Lymph # Seg Neuts % (Manual) Lymphocytes % (Manual) Nucleated RBC % Seg Neutrophils # Man Lymphocytes # (Manual) Monocytes # (Manual) PT INR APTT D-Dimer POC ABG pH ABG pH POC ABG pCO2 POC ABG pO2 ABG pO2 ABG HCO3 ABG O2 Saturation ABG Base Excess ABG Hemoglobin VBG pH Oxyhemoglobin Sodium Potassium Chloride Carbon Dioxide BUN Creatinine Glucose POC Glucose 176 H 224 H 173 H Lactic Acid Calcium Phosphorus Magnesium Iron TIBC Direct Bilirubin AST ALT Alkaline Phosphatase Total Creatine Kinase CK-MB (CK-2) C-Reactive Protein Total Protein Albumin Vitamin B12 Salicylates Acetaminophen Miscellaneous Test Crossmatch 04/15/19 04/15/19 04/15/19 05:44 12:44 18:06 WBC RBC Hgb Hct MCV MCH MCHC RDW Plt Count [place] % (Auto) Lymph # Seg Neuts % (Manual) Lymphocytes % (Manual) Nucleated RBC % Seg Neutrophils # Man Lymphocytes # (Manual) Monocytes # (Manual) PT INR APTT D-Dimer POC ABG pH 7.461 H ABG pH POC ABG pCO2 45.5 H POC ABG pO2 ABG pO2 ABG HCO3 ABG O2 Saturation ABG Base Excess ABG Hemoglobin VBG pH Oxyhemoglobin Sodium Potassium Chloride Carbon Dioxide BUN Creatinine Glucose POC Glucose 255 H 365 H Lactic Acid Calcium Phosphorus Magnesium Iron TIBC Direct Bilirubin AST ALT Alkaline Phosphatase Total Creatine Kinase CK-MB (CK-2) C-Reactive Protein Total Protein Albumin Vitamin B12 Salicylates Acetaminophen Miscellaneous Test Crossmatch 04/15/19 04/15/19 04/16/19 18:06 23:34 00:40 WBC RBC Hgb Hct MCV MCH MCHC RDW Plt Count [place] % (Auto) Lymph # Seg Neuts % (Manual) Lymphocytes % (Manual) Nucleated RBC % Seg Neutrophils # Man Lymphocytes # (Manual) Monocytes # (Manual) PT INR APTT D-Dimer POC ABG pH ABG pH POC ABG pCO2 POC ABG pO2 ABG pO2 ABG HCO3 ABG O2 Saturation ABG Base Excess ABG Hemoglobin VBG pH Oxyhemoglobin Sodium Potassium Chloride Carbon Dioxide BUN Creatinine Glucose POC Glucose 157 H 56 L 107 H Lactic Acid Calcium Phosphorus Magnesium Iron TIBC Direct Bilirubin AST ALT Alkaline Phosphatase Total Creatine Kinase CK-MB (CK-2) C-Reactive Protein Total Protein Albumin Vitamin B12 Salicylates Acetaminophen Miscellaneous Test Crossmatch 04/16/19 04/16/19 04/16/19 09:06 09:06 11:21 WBC 12.9 H RBC 2.95 L Hgb 9.7 L Hct 28.9 L MCV 98 H MCH 33 H MCHC RDW 17.7 H Plt Count 581 H [place] % (Auto) Lymph # Seg Neuts % (Manual) Lymphocytes % (Manual) Nucleated RBC % Seg Neutrophils # Man Lymphocytes # (Manual) Monocytes # (Manual) PT INR APTT D-Dimer POC ABG pH ABG pH POC ABG pCO2 POC ABG pO2 ABG pO2 ABG HCO3 ABG O2 Saturation ABG Base Excess ABG Hemoglobin VBG pH Oxyhemoglobin Sodium Potassium Chloride Carbon Dioxide 31 H BUN Creatinine 0.2 L Glucose 155 H POC Glucose 184 H Lactic Acid Calcium Phosphorus Magnesium Iron TIBC Direct Bilirubin AST ALT Alkaline Phosphatase Total Creatine Kinase CK-MB (CK-2) C-Reactive Protein Total Protein Albumin Vitamin B12 Salicylates Acetaminophen Miscellaneous Test Crossmatch 04/16/19 04/16/19 04/16/19 17:28 20:17 23:09 WBC RBC Hgb Hct MCV MCH MCHC RDW Plt Count [place] % (Auto) Lymph # Seg Neuts % (Manual) Lymphocytes % (Manual) Nucleated RBC % Seg Neutrophils # Man Lymphocytes # (Manual) Monocytes # (Manual) PT INR APTT D-Dimer POC ABG pH 7.479 H ABG pH POC ABG pCO2 POC ABG pO2 71 L ABG pO2 ABG HCO3 ABG O2 Saturation ABG Base Excess ABG Hemoglobin VBG pH Oxyhemoglobin Sodium Potassium Chloride Carbon Dioxide BUN Creatinine Glucose POC Glucose 173 H 178 H Lactic Acid Calcium Phosphorus Magnesium Iron TIBC Direct Bilirubin AST ALT Alkaline Phosphatase Total Creatine Kinase CK-MB (CK-2) C-Reactive Protein Total Protein Albumin Vitamin B12 Salicylates Acetaminophen Miscellaneous Test Crossmatch 0904/17/19 04/17/19 05:02 11:39 12:48 WBC RBC Hgb Hct MCV MCH MCHC RDW Plt Count [place] % (Auto) Lymph # Seg Neuts % (Manual) Lymphocytes % (Manual) Nucleated RBC % Seg Neutrophils # Man Lymphocytes # (Manual) Monocytes # (Manual) PT INR APTT D-Dimer POC ABG pH 7.557 H ABG pH POC ABG pCO2 32.8 L POC ABG pO2 149 H ABG pO2 ABG HCO3 ABG O2 Saturation ABG Base Excess ABG Hemoglobin VBG pH Oxyhemoglobin Sodium Potassium Chloride Carbon Dioxide BUN Creatinine Glucose POC Glucose 252 H 124 H Lactic Acid Calcium Phosphorus Magnesium Iron TIBC Direct Bilirubin AST ALT Alkaline Phosphatase Total Creatine Kinase CK-MB (CK-2) C-Reactive Protein Total Protein Albumin Vitamin B12 Salicylates Acetaminophen Miscellaneous Test Crossmatch 04/17/19 23:31 WBC RBC Hgb Hct MCV MCH MCHC RDW Plt Count [place] % (Auto) Lymph # Seg Neuts % (Manual) Lymphocytes % (Manual) Nucleated RBC % Seg Neutrophils # Man Lymphocytes # (Manual) Monocytes # (Manual) PT INR APTT D-Dimer POC ABG pH ABG pH POC ABG pCO2 POC ABG pO2 ABG pO2 ABG HCO3 ABG O2 Saturation ABG Base Excess ABG Hemoglobin VBG pH Oxyhemoglobin Sodium Potassium Chloride Carbon Dioxide BUN Creatinine Glucose POC Glucose 149 H Lactic Acid Calcium Phosphorus Magnesium Iron TIBC Direct Bilirubin AST ALT Alkaline Phosphatase Total Creatine Kinase CK-MB (CK-2) C-Reactive Protein Total Protein Albumin Vitamin B12 Salicylates Acetaminophen Miscellaneous Test Crossmatch Chest x-ray: pending Allied health notes reviewed: nursing
--- NOTE | 2019-04-18 12:55 | Consultation ---
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 really I am not very optimistic Past History Past Medical History: diabetes, other (polysubstance abuse, history of seizures) Past Surgical History: Other (Unable to obtain) Social history: lives with family, IV drug use Family history: other (Unable to obtain) Medications and Allergies Allergies Allergy/AdvReac Type Severity Reaction Status Date / Time quetiapine [From Seroquel] Allergy Rash Verified 03/30/19 11:28 Home Medications Medication Instructions Recorded Confirmed Last Taken Type ALPRAZolam [Xanax TAB] 0.25 mg PO QID 04/02/19 04/02/19 Unknown History HYDROcodone/APAP 7.5-325 7.5 - 325 mg PO Q6H PRN 04/02/19 04/02/19 Unknown History Insulin Aspart [NovoLOG 100 5 units SQ QAC 04/02/19 04/02/19 Unknown History UNITS/ML VIAL] Insulin Detemir [Levemir VIAL] 5 unit SQ BID 04/02/19 04/02/19 Unknown History Lurasidone HCl [Latuda] 80 mg PO QHS 04/02/19 04/02/19 Unknown History Ondansetron [Zofran TAB] 4 mg PO BID PRN 04/02/19 04/02/19 Unknown History Active Meds: Active Medications Acetaminophen (Tylenol) 650 mg PO Q4H PRN PRN Reason: Pain MILD(1-3)/Fever >100.5/WARE Last Admin: 04/01/19 23:38 Dose: 650 mg Documented by: Lipase/Protease/Amylase (Cindy Daniels 10,500 Unit) 1 each FEEDTUBE PRN PRN PRN Reason: For Clogged Feeding Tube Dextrose (D50w (25gm) Syringe) 0 ml IV PRN PRN PRN Reason: Hypoglycemia Last Admin: 04/15/19 23:36 Dose: 20 ml Documented by: Enoxaparin Sodium (Lovenox) 40 mg SUB-Q QDAY@1000 ZAM[facility]AM Last Admin: 04/18/19 11:27 Dose: 40 mg Documented by: Famotidine (Pepcid) 20 mg PO BID [facility] Last Admin: 04/18/19 11:27 Dose: 20 mg Documented by: Fentanyl (Sublimaze) 50 mcg IV Q2H PRN PRN Reason: Pain , Severe (7-10)/AGITATION Last Admin: 04/17/19 05:18 Dose: 50 mcg Documented by: Fentanyl (Duragesic) 25 mcg TD Q3D [facility] Last Admin: 04/17/19 14:10 Dose: 25 mcg Documented by: Hydrophilic Ointment (Vaseline Lip Therapy) 1 applic TP Q2HR PRN PRN Reason: Dry Lips Insulin Glargine (Lantus) 20 units SUB-Q QHS [facility] Last Admin: 04/17/19 21:44 Dose: 20 units Documented by: Insulin Human Regular (Humulin R) 0 units SUB-Q Q6HR [facility]; Protocol Last Admin: 04/18/19 11:40 Dose: 6 units Documented by: Levetiracetam (Keppra) 500 mg PO BID [facility] Last Admin: 04/18/19 11:27 Dose: 500 mg Documented by: Metoprolol Tartrate (Lopressor) 5 mg IV Q6HR PRN PRN Reason: Tachyarrhythmias Last Admin: 04/17/19 19:44 Dose: 5 mg Documented by: Metoprolol Tartrate (Lopressor) 25 mg PO BID [facility] Last Admin: 04/18/19 11:28 Dose: 25 mg Documented by: Multi-Ingred Cream/Lotion/Oil/Oint (Artificial Tears Ophth Oint) 1 applic OU Q4HR PRN PRN Reason: Dry Eye(s) Last Admin: 04/06/19 11:39 Dose: 1 applic Documented by: Ondansetron HCl (Zofran) 4 mg IV Q8H PRN PRN Reason: Nausea And Vomiting Scopolamine (Transderm-Scop) 1 each TD Q3D [facility] Last Admin: 04/17/19 12:48 Dose: 1 each Documented by: Simple Syrup (Simple Syrup) 15 ml FEEDTUBE PRN PRN PRN Reason: Hypoglycemia Last Admin: 04/14/19 01:53 Dose: 15 ml Documented by: Simple Syrup (Simple Syrup) 30 ml FEEDTUBE PRN PRN PRN Reason: Hypoglycemia Sodium Bicarbonate (Sodium Bicarbonate) 325 mg FEEDTUBE PRN PRN PRN Reason: For Clogged Feeding Tube Sodium Chloride (Sodium Chloride Flush Syringe 10 Ml) 10 ml IV BID [facility] Last Admin: 04/18/19 11:28 Dose: 10 ml Documented by: Sodium Chloride (Sodium Chloride Flush Syringe 10 Ml) 10 ml IV PRN PRN PRN Reason: LINE FLUSH Physical Examination - Vital Signs Vital Signs: Vital Signs Pulse Resp BP 96 H 16 69/33 03/29/19 19:15 03/29/19 19:15 03/29/19 19:15 Results - Laboratory Findings CBC and BMP: 04/16/19 09:06 04/16/19 09:06 Abnormal Lab Findings: Abnormal Labs 03/29/19 03/29/19 03/29/19 19:11 19:20 19:20 WBC 26.7 H RBC 2.52 L Hgb 8.1 L Hct MCV 148 H MCH MCHC 22 L RDW 18.5 H Plt Count Roberts % (Auto) Lymph # Seg Neuts % (Manual) 82.0 H Lymphocytes % (Manual) 7.0 L Nucleated RBC % Seg Neutrophils # Man 21.9 H Lymphocytes # (Manual) Monocytes # (Manual) 1.9 H PT 21.8 H INR 1.95 H APTT 74.5 H* D-Dimer POC ABG pH ABG pH POC ABG pCO2 POC ABG pO2 ABG pO2 ABG HCO3 ABG O2 Saturation ABG Base Excess ABG Hemoglobin VBG pH Oxyhemoglobin Sodium Potassium Chloride Carbon Dioxide BUN Creatinine Glucose POC Glucose > 500 H Lactic Acid Calcium Phosphorus Magnesium Iron TIBC Direct Bilirubin AST ALT Alkaline Phosphatase Total Creatine Kinase CK-MB (CK-2) C-Reactive Protein Total Protein Albumin Vitamin B12 Salicylates Acetaminophen Miscellaneous Test Crossmatch 03/29/19 03/29/19 03/29/19 19:20 19:47 20:59 WBC RBC Hgb Hct MCV MCH MCHC RDW Plt Count Roberts % (Auto) Lymph # Seg Neuts % (Manual) Lymphocytes % (Manual) Nucleated RBC % Seg Neutrophils # Man Lymphocytes # (Manual) Monocytes # (Manual) PT INR APTT D-Dimer POC ABG pH 6.892 L ABG pH POC ABG pCO2 POC ABG pO2 236 H ABG pO2 ABG HCO3 ABG O2 Saturation ABG Base Excess ABG Hemoglobin VBG pH 6.800 L* Oxyhemoglobin Sodium 118 L* Potassium 9.0 H* Chloride 64.5 L Carbon Dioxide 7 L* BUN 53 H Creatinine 2.1 H Glucose 2196 H* POC Glucose Lactic Acid Calcium 12.4 H* Phosphorus Magnesium Iron TIBC Direct Bilirubin AST 3900 H ALT 1034 H Alkaline Phosphatase 316 H Total Creatine Kinase CK-MB (CK-2) C-Reactive Protein Total Protein 5.1 L Albumin 2.8 L Vitamin B12 Salicylates Acetaminophen Miscellaneous Test Crossmatch 03/29/19 03/29/19 03/29/19 22:45 22:45 22:45 WBC RBC Hgb Hct MCV MCH MCHC RDW Plt Count Roberts % (Auto) Lymph # Seg Neuts % (Manual) Lymphocytes % (Manual) Nucleated RBC % Seg Neutrophils # Man Lymphocytes # (Manual) Monocytes # (Manual) PT INR APTT D-Dimer POC ABG pH ABG pH POC ABG pCO2 POC ABG pO2 ABG pO2 ABG HCO3 ABG O2 Saturation ABG Base Excess ABG Hemoglobin VBG pH Oxyhemoglobin Sodium 132 L D Potassium 7.0 H* Chloride 84.3 L Carbon Dioxide 3 L* BUN 48 H Creatinine 1.8 H Glucose 1779 H* POC Glucose Lactic Acid Calcium Phosphorus 21.70 H Magnesium 4.70 H Iron TIBC Direct Bilirubin AST ALT Alkaline Phosphatase Total Creatine Kinase 363 H CK-MB (CK-2) C-Reactive Protein Total Protein Albumin Vitamin B12 Salicylates Acetaminophen Miscellaneous Test Crossmatch 03/29/19 03/29/19 03/30/19 Unknown Unknown 00:11 WBC RBC Hgb Hct MCV MCH MCHC RDW Plt Count Roberts % (Auto) Lymph # Seg Neuts % (Manual) Lymphocytes % (Manual) Nucleated RBC % Seg Neutrophils # Man Lymphocytes # (Manual) Monocytes # (Manual) PT INR APTT D-Dimer POC ABG pH ABG pH POC ABG pCO2 POC ABG pO2 ABG pO2 ABG HCO3 ABG O2 Saturation ABG Base Excess ABG Hemoglobin VBG pH Oxyhemoglobin Sodium 122 L Potassium 7.9 H* 6.4 H* Chloride 75.3 L 89.7 L Carbon Dioxide 3 L* 12 L D BUN 52 H 46 H Creatinine 2.0 H 1.7 H Glucose 2043 H* 1591 H* POC Glucose Lactic Acid Calcium 7.8 L Phosphorus 19.30 H Magnesium 3.90 H Iron TIBC Direct Bilirubin AST ALT Alkaline Phosphatase Total Creatine Kinase CK-MB (CK-2) C-Reactive Protein Total Protein Albumin Vitamin B12 Salicylates Acetaminophen Miscellaneous Test Crossmatch 03/30/19 03/30/19 03/30/19 00:11 02:14 02:14 WBC RBC Hgb Hct MCV MCH MCHC RDW Plt Count Roberts % (Auto) Lymph # Seg Neuts % (Manual) Lymphocytes % (Manual) Nucleated RBC % Seg Neutrophils # Man Lymphocytes # (Manual) Monocytes # (Manual) PT INR APTT D-Dimer POC ABG pH ABG pH POC ABG pCO2 POC ABG pO2 ABG pO2 ABG HCO3 ABG O2 Saturation ABG Base Excess ABG Hemoglobin VBG pH Oxyhemoglobin Sodium Potassium Chloride Carbon Dioxide 9 L* BUN 45 H Creatinine 1.7 H Glucose 1155 H* POC Glucose Lactic Acid Calcium 7.9 L Phosphorus 10.90 H D 5.30 H D Magnesium 3.10 H 2.90 H Iron TIBC Direct Bilirubin AST ALT Alkaline Phosphatase Total Creatine Kinase CK-MB (CK-2) C-Reactive Protein Total Protein Albumin Vitamin B12 Salicylates Acetaminophen Miscellaneous Test Crossmatch 03/30/19 03/30/19 03/30/19 03:15 03:30 04:23 WBC 18.0 H RBC 2.31 L Hgb 7.3 L Hct 23.8 L D MCV 103 H MCH MCHC RDW 17.1 H Plt Count Roberts % (Auto) Lymph # Seg Neuts % (Manual) 79.0 H Lymphocytes % (Manual) Nucleated RBC % Seg Neutrophils # Man 14.2 H Lymphocytes # (Manual) Monocytes # (Manual) PT INR APTT D-Dimer POC ABG pH 7.251 L ABG pH POC ABG pCO2 POC ABG pO2 156 H ABG pO2 ABG HCO3 ABG O2 Saturation ABG Base Excess ABG Hemoglobin VBG pH Oxyhemoglobin Sodium Potassium Chloride Carbon Dioxide BUN Creatinine Glucose POC Glucose Lactic Acid Calcium Phosphorus Magnesium Iron TIBC Direct Bilirubin AST ALT Alkaline Phosphatase Total Creatine Kinase CK-MB (CK-2) C-Reactive Protein Total Protein Albumin Vitamin B12 Salicylates Acetaminophen Miscellaneous Test Crossmatch See Detail 03/30/19 03/30/19 03/30/19 05:26 05:26 10:38 WBC RBC Hgb Hct MCV MCH MCHC RDW Plt Count Roberts % (Auto) Lymph # Seg Neuts % (Manual) Lymphocytes % (Manual) Nucleated RBC % Seg Neutrophils # Man Lymphocytes # (Manual) Monocytes # (Manual) PT INR APTT D-Dimer POC ABG pH ABG pH POC ABG pCO2 POC ABG pO2 ABG pO2 ABG HCO3 ABG O2 Saturation ABG Base Excess ABG Hemoglobin VBG pH Oxyhemoglobin Sodium 158 H D Potassium 3.5 L Chloride 109.3 H Carbon Dioxide 19 L D BUN 40 H Creatinine 1.5 H Glucose 760 H* POC Glucose 380 H Lactic Acid Calcium 7.3 L Phosphorus Magnesium 2.60 H Iron TIBC Direct Bilirubin AST 85801 H ALT 2156 H Alkaline Phosphatase 271 H Total Creatine Kinase 2465 H CK-MB (CK-2) 52.7 H C-Reactive Protein Total Protein 4.5 L Albumin 2.4 L Vitamin B12 Salicylates Acetaminophen Miscellaneous Test Crossmatch 03/30/19 03/30/19 03/30/19 11:08 12:25 12:57 WBC RBC Hgb Hct MCV MCH MCHC RDW Plt Count Roberts % (Auto) Lymph # Seg Neuts % (Manual) Lymphocytes % (Manual) Nucleated RBC % Seg Neutrophils # Man Lymphocytes # (Manual) Monocytes # (Manual) PT INR APTT D-Dimer POC ABG pH ABG pH POC ABG pCO2 POC ABG pO2 ABG pO2 ABG HCO3 ABG O2 Saturation ABG Base Excess ABG Hemoglobin VBG pH Oxyhemoglobin Sodium 156 H Potassium 3.2 L Chloride 116.4 H Carbon Dioxide 21 L BUN 37 H Creatinine Glucose 162 H POC Glucose 263 H 196 H Lactic Acid Calcium 7.2 L Phosphorus Magnesium Iron TIBC Direct Bilirubin AST ALT Alkaline Phosphatase Total Creatine Kinase CK-MB (CK-2) C-Reactive Protein Total Protein Albumin Vitamin B12 Salicylates Acetaminophen Miscellaneous Test Crossmatch 03/30/19 03/30/19 03/30/19 12:57 12:57 12:57 WBC RBC Hgb Hct MCV MCH MCHC RDW Plt Count Roberts % (Auto) Lymph # Seg Neuts % (Manual) Lymphocytes % (Manual) Nucleated RBC % Seg Neutrophils # Man Lymphocytes # (Manual) Monocytes # (Manual) PT 21.0 H INR 1.86 H APTT D-Dimer POC ABG pH ABG pH POC ABG pCO2 POC ABG pO2 ABG pO2 ABG HCO3 ABG O2 Saturation ABG Base Excess ABG Hemoglobin VBG pH Oxyhemoglobin Sodium Potassium Chloride Carbon Dioxide BUN Creatinine Glucose POC Glucose Lactic Acid 9.00 H* Calcium Phosphorus Magnesium Iron TIBC Direct Bilirubin AST ALT Alkaline Phosphatase Total Creatine Kinase CK-MB (CK-2) C-Reactive Protein 2.40 H Total Protein Albumin Vitamin B12 Salicylates Acetaminophen Miscellaneous Test Crossmatch 03/30/19 03/30/19 03/30/19 13:23 14:00 14:47 WBC RBC Hgb Hct MCV MCH MCHC RDW Plt Count Roberts % (Auto) Lymph # Seg Neuts % (Manual) Lymphocytes % (Manual) Nucleated RBC % Seg Neutrophils # Man Lymphocytes # (Manual) Monocytes # (Manual) PT INR APTT D-Dimer POC ABG pH ABG pH POC ABG pCO2 POC ABG pO2 ABG pO2 ABG HCO3 ABG O2 Saturation ABG Base Excess ABG Hemoglobin VBG pH Oxyhemoglobin Sodium Potassium Chloride Carbon Dioxide BUN Creatinine Glucose POC Glucose 176 H 245 H Lactic Acid Calcium Phosphorus Magnesium Iron TIBC Direct Bilirubin AST ALT Alkaline Phosphatase Total Creatine Kinase CK-MB (CK-2) C-Reactive Protein Total Protein Albumin Vitamin B12 Salicylates Acetaminophen Miscellaneous Test Flexitest 1 H Crossmatch 03/30/19 03/30/19 03/30/19 16:11 17:11 17:46 WBC RBC Hgb Hct MCV MCH MCHC RDW Plt Count Roberts % (Auto) Lymph # Seg Neuts % (Manual) Lymphocytes % (Manual) Nucleated RBC % Seg Neutrophils # Man Lymphocytes # (Manual) Monocytes # (Manual) PT INR APTT D-Dimer POC ABG pH ABG pH POC ABG pCO2 POC ABG pO2 ABG pO2 ABG HCO3 ABG O2 Saturation ABG Base Excess ABG Hemoglobin VBG pH Oxyhemoglobin Sodium Potassium Chloride Carbon Dioxide BUN Creatinine Glucose POC Glucose 181 H 167 H 125 H Lactic Acid Calcium Phosphorus Magnesium Iron TIBC Direct Bilirubin AST ALT Alkaline Phosphatase Total Creatine Kinase CK-MB (CK-2) C-Reactive Protein Total Protein Albumin Vitamin B12 Salicylates Acetaminophen Miscellaneous Test Crossmatch 03/30/19 03/30/19 03/30/19 18:59 21:31 22:19 WBC RBC Hgb Hct MCV MCH MCHC RDW Plt Count Roberts % (Auto) Lymph # Seg Neuts % (Manual) Lymphocytes % (Manual) Nucleated RBC % Seg Neutrophils # Man Lymphocytes # (Manual) Monocytes # (Manual) PT INR APTT D-Dimer POC ABG pH ABG pH POC ABG pCO2 POC ABG pO2 ABG pO2 ABG HCO3 ABG O2 Saturation ABG Base Excess ABG Hemoglobin VBG pH Oxyhemoglobin Sodium Potassium Chloride Carbon Dioxide BUN Creatinine Glucose POC Glucose 140 H 166 H 115 H Lactic Acid Calcium Phosphorus Magnesium Iron TIBC Direct Bilirubin AST ALT Alkaline Phosphatase Total Creatine Kinase CK-MB (CK-2) C-Reactive Protein Total Protein Albumin Vitamin B12 Salicylates Acetaminophen Miscellaneous Test Crossmatch 03/30/19 03/30/19 03/30/19 23:13 Unknown Unknown WBC RBC Hgb Hct MCV MCH MCHC RDW Plt Count Roberts % (Auto) Lymph # Seg Neuts % (Manual) Lymphocytes % (Manual) Nucleated RBC % Seg Neutrophils # Man Lymphocytes # (Manual) Monocytes # (Manual) PT INR APTT D-Dimer POC ABG pH ABG pH POC ABG pCO2 POC ABG pO2 ABG pO2 47.8 L ABG HCO3 18.8 L ABG O2 Saturation 83.8 L ABG Base Excess -5.4 L ABG Hemoglobin 6.8 L VBG pH Oxyhemoglobin 81.8 L Sodium 157 H Potassium 3.3 L Chloride 117.9 H Carbon Dioxide 20 L BUN 36 H Creatinine Glucose 150 H POC Glucose 112 H Lactic Acid Calcium 7.2 L Phosphorus Magnesium Iron TIBC Direct Bilirubin AST ALT Alkaline Phosphatase Total Creatine Kinase CK-MB (CK-2) C-Reactive Protein Total Protein Albumin Vitamin B12 Salicylates Acetaminophen Miscellaneous Test Crossmatch 03/30/19 03/30/19 03/31/19 Unknown Unknown 00:03 WBC RBC Hgb Hct MCV MCH MCHC RDW Plt Count Roberts % (Auto) Lymph # Seg Neuts % (Manual) Lymphocytes % (Manual) Nucleated RBC % Seg Neutrophils # Man Lymphocytes # (Manual) Monocytes # (Manual) PT INR APTT D-Dimer POC ABG pH ABG pH POC ABG pCO2 POC ABG pO2 ABG pO2 ABG HCO3 ABG O2 Saturation ABG Base Excess ABG Hemoglobin VBG pH Oxyhemoglobin Sodium Potassium Chloride Carbon Dioxide BUN Creatinine Glucose POC Glucose 188 H Lactic Acid Calcium Phosphorus Magnesium Iron TIBC Direct Bilirubin AST ALT Alkaline Phosphatase Total Creatine Kinase CK-MB (CK-2) C-Reactive Protein Total Protein Albumin Vitamin B12 Salicylates 0.8 L Acetaminophen < 5.0 L Miscellaneous Test Crossmatch 03/31/19 03/31/19 03/31/19 01:18 03:07 03:50 WBC RBC Hgb Hct MCV MCH MCHC RDW Plt Count Roberts % (Auto) Lymph # Seg Neuts % (Manual) Lymphocytes % (Manual) Nucleated RBC % Seg Neutrophils # Man Lymphocytes # (Manual) Monocytes # (Manual) PT INR APTT D-Dimer POC ABG pH ABG pH 7.525 H POC ABG pCO2 POC ABG pO2 ABG pO2 178.0 H ABG HCO3 19.5 L ABG O2 Saturation 99.2 H ABG Base Excess -3.1 L ABG Hemoglobin 5.8 L VBG pH Oxyhemoglobin Sodium Potassium Chloride Carbon Dioxide BUN Creatinine Glucose POC Glucose 114 H 107 H Lactic Acid Calcium Phosphorus Magnesium Iron TIBC Direct Bilirubin AST ALT Alkaline Phosphatase Total Creatine Kinase CK-MB (CK-2) C-Reactive Protein Total Protein Albumin Vitamin B12 Salicylates Acetaminophen Miscellaneous Test Crossmatch 03/31/19 03/31/19 03/31/19 03:51 03:51 04:05 WBC RBC 1.89 L Hgb 6.1 L Hct 18.2 L* MCV MCH MCHC RDW 17.7 H Plt Count 89 L Roberts % (Auto) Lymph # Seg Neuts % (Manual) 86.0 H Lymphocytes % (Manual) 10.0 L Nucleated RBC % 1.0 H Seg Neutrophils # Man Lymphocytes # (Manual) 0.7 L Monocytes # (Manual) PT INR APTT D-Dimer POC ABG pH ABG pH POC ABG pCO2 POC ABG pO2 ABG pO2 ABG HCO3 ABG O2 Saturation ABG Base Excess ABG Hemoglobin VBG pH Oxyhemoglobin Sodium 151 H Potassium 3.2 L Chloride 119.4 H Carbon Dioxide 17 L BUN 35 H Creatinine Glucose 139 H POC Glucose 153 H Lactic Acid Calcium 7.1 L Phosphorus Magnesium Iron TIBC Direct Bilirubin AST ALT Alkaline Phosphatase Total Creatine Kinase CK-MB (CK-2) C-Reactive Protein Total Protein Albumin Vitamin B12 Salicylates Acetaminophen Miscellaneous Test Crossmatch 03/31/19 03/31/19 03/31/19 05:05 05:35 06:23 WBC RBC Hgb Hct MCV MCH MCHC RDW Plt Count Roberts % (Auto) Lymph # Seg Neuts % (Manual) Lymphocytes % (Manual) Nucleated RBC % Seg Neutrophils # Man Lymphocytes # (Manual) Monocytes # (Manual) PT INR APTT D-Dimer POC ABG pH ABG pH POC ABG pCO2 POC ABG pO2 ABG pO2 ABG HCO3 ABG O2 Saturation ABG Base Excess ABG Hemoglobin VBG pH Oxyhemoglobin Sodium Potassium Chloride Carbon Dioxide BUN Creatinine Glucose POC Glucose 176 H 133 H Lactic Acid 3.20 H* Calcium Phosphorus Magnesium Iron TIBC Direct Bilirubin AST ALT Alkaline Phosphatase Total Creatine Kinase CK-MB (CK-2) C-Reactive Protein Total Protein Albumin Vitamin B12 Salicylates Acetaminophen Miscellaneous Test Crossmatch 03/31/19 03/31/19 03/31/19 07:50 07:51 08:20 WBC RBC Hgb Hct MCV MCH MCHC RDW Plt Count Roberts % (Auto) Lymph # Seg Neuts % (Manual) Lymphocytes % (Manual) Nucleated RBC % Seg Neutrophils # Man Lymphocytes # (Manual) Monocytes # (Manual) PT INR APTT D-Dimer POC ABG pH ABG pH POC ABG pCO2 POC ABG pO2 ABG pO2 ABG HCO3 ABG O2 Saturation ABG Base Excess ABG Hemoglobin VBG pH Oxyhemoglobin Sodium Potassium Chloride Carbon Dioxide BUN Creatinine Glucose POC Glucose 135 H Lactic Acid 3.30 H* Calcium Phosphorus Magnesium Iron 26 L TIBC 193 L Direct Bilirubin AST ALT Alkaline Phosphatase Total Creatine Kinase CK-MB (CK-2) C-Reactive Protein Total Protein Albumin Vitamin B12 Salicylates Acetaminophen Miscellaneous Test Crossmatch 03/31/19 03/31/19 03/31/19 08:20 08:20 09:06 WBC RBC Hgb Hct MCV MCH MCHC RDW Plt Count Roberts % (Auto) Lymph # Seg Neuts % (Manual) Lymphocytes % (Manual) Nucleated RBC % Seg Neutrophils # Man Lymphocytes # (Manual) Monocytes # (Manual) PT INR APTT D-Dimer POC ABG pH ABG pH POC ABG pCO2 POC ABG pO2 ABG pO2 ABG HCO3 ABG O2 Saturation ABG Base Excess ABG Hemoglobin VBG pH Oxyhemoglobin Sodium 153 H Potassium 3.0 L Chloride 118.9 H Carbon Dioxide 18 L BUN 37 H Creatinine Glucose 132 H POC Glucose 145 H Lactic Acid Calcium 7.1 L Phosphorus Magnesium Iron TIBC Direct Bilirubin AST ALT Alkaline Phosphatase Total Creatine Kinase CK-MB (CK-2) C-Reactive Protein Total Protein Albumin Vitamin B12 > 2000 H Salicylates Acetaminophen Miscellaneous Test Crossmatch 03/31/19 03/31/19 03/31/19 10:47 11:49 13:04 WBC RBC Hgb Hct MCV MCH MCHC RDW Plt Count Roberts % (Auto) Lymph # Seg Neuts % (Manual) Lymphocytes % (Manual) Nucleated RBC % Seg Neutrophils # Man Lymphocytes # (Manual) Monocytes # (Manual) PT INR APTT D-Dimer POC ABG pH ABG pH POC ABG pCO2 POC ABG pO2 ABG pO2 ABG HCO3 ABG O2 Saturation ABG Base Excess ABG Hemoglobin VBG pH Oxyhemoglobin Sodium Potassium Chloride Carbon Dioxide BUN Creatinine Glucose POC Glucose 153 H 174 H 214 H Lactic Acid Calcium Phosphorus Magnesium Iron TIBC Direct Bilirubin AST ALT Alkaline Phosphatase Total Creatine Kinase CK-MB (CK-2) C-Reactive Protein Total Protein Albumin Vitamin B12 Salicylates Acetaminophen Miscellaneous Test Crossmatch 03/31/19 03/31/19 03/31/19 13:42 15:08 16:08 WBC RBC Hgb Hct MCV MCH MCHC RDW Plt Count Roberts % (Auto) Lymph # Seg Neuts % (Manual) Lymphocytes % (Manual) Nucleated RBC % Seg Neutrophils # Man Lymphocytes # (Manual) Monocytes # (Manual) PT INR APTT D-Dimer POC ABG pH ABG pH POC ABG pCO2 POC ABG pO2 ABG pO2 ABG HCO3 ABG O2 Saturation ABG Base Excess ABG Hemoglobin VBG pH Oxyhemoglobin Sodium Potassium Chloride Carbon Dioxide BUN Creatinine Glucose POC Glucose 186 H 136 H 150 H Lactic Acid Calcium Phosphorus Magnesium Iron TIBC Direct Bilirubin AST ALT Alkaline Phosphatase Total Creatine Kinase CK-MB (CK-2) C-Reactive Protein Total Protein Albumin Vitamin B12 Salicylates Acetaminophen Miscellaneous Test Crossmatch 03/31/19 03/31/19 03/31/19 17:11 17:30 17:30 WBC RBC Hgb 7.7 L Hct 23.0 L MCV MCH MCHC RDW Plt Count Roberts % (Auto) Lymph # Seg Neuts % (Manual) Lymphocytes % (Manual) Nucleated RBC % Seg Neutrophils # Man Lymphocytes # (Manual) Monocytes # (Manual) PT INR APTT D-Dimer POC ABG pH ABG pH POC ABG pCO2 POC ABG pO2 ABG pO2 ABG HCO3 ABG O2 Saturation ABG Base Excess ABG Hemoglobin VBG pH Oxyhemoglobin Sodium 153 H Potassium 3.5 L Chloride 119.3 H Carbon Dioxide 20 L BUN 34 H Creatinine Glucose 162 H POC Glucose 140 H Lactic Acid Calcium 7.6 L Phosphorus Magnesium Iron TIBC Direct Bilirubin AST ALT Alkaline Phosphatase Total Creatine Kinase CK-MB (CK-2) C-Reactive Protein Total Protein Albumin Vitamin B12 Salicylates Acetaminophen Miscellaneous Test Crossmatch 03/31/19 03/31/19 03/31/19 17:59 18:58 20:28 WBC RBC Hgb Hct MCV MCH MCHC RDW Plt Count Roberts % (Auto) Lymph # Seg Neuts % (Manual) Lymphocytes % (Manual) Nucleated RBC % Seg Neutrophils # Man Lymphocytes # (Manual) Monocytes # (Manual) PT INR APTT D-Dimer POC ABG pH ABG pH POC ABG pCO2 POC ABG pO2 ABG pO2 ABG HCO3 ABG O2 Saturation ABG Base Excess ABG Hemoglobin VBG pH Oxyhemoglobin Sodium Potassium Chloride Carbon Dioxide BUN Creatinine Glucose POC Glucose 156 H 152 H 138 H Lactic Acid Calcium Phosphorus Magnesium Iron TIBC Direct Bilirubin AST ALT Alkaline Phosphatase Total Creatine Kinase CK-MB (CK-2) C-Reactive Protein Total Protein Albumin Vitamin B12 Salicylates Acetaminophen Miscellaneous Test Crossmatch 03/31/19 03/31/19 03/31/19 21:09 22:15 23:10 WBC RBC Hgb Hct MCV MCH MCHC RDW Plt Count Roberts % (Auto) Lymph # Seg Neuts % (Manual) Lymphocytes % (Manual) Nucleated RBC % Seg Neutrophils # Man Lymphocytes # (Manual) Monocytes # (Manual) PT INR APTT D-Dimer POC ABG pH ABG pH POC ABG pCO2 POC ABG pO2 ABG pO2 ABG HCO3 ABG O2 Saturation ABG Base Excess ABG Hemoglobin VBG pH Oxyhemoglobin Sodium Potassium Chloride Carbon Dioxide BUN Creatinine Glucose POC Glucose 136 H 137 H 148 H Lactic Acid Calcium Phosphorus Magnesium Iron TIBC Direct Bilirubin AST ALT Alkaline Phosphatase Total Creatine Kinase CK-MB (CK-2) C-Reactive Protein Total Protein Albumin Vitamin B12 Salicylates Acetaminophen Miscellaneous Test Crossmatch 04/01/19 04/01/19 04/01/19 00:05 01:17 02:11 WBC RBC Hgb Hct MCV MCH MCHC RDW Plt Count Roberts % (Auto) Lymph # Seg Neuts % (Manual) Lymphocytes % (Manual) Nucleated RBC % Seg Neutrophils # Man Lymphocytes # (Manual) Monocytes # (Manual) PT INR APTT D-Dimer POC ABG pH ABG pH POC ABG pCO2 POC ABG pO2 ABG pO2 ABG HCO3 ABG O2 Saturation ABG Base Excess ABG Hemoglobin VBG pH Oxyhemoglobin Sodium Potassium Chloride Carbon Dioxide BUN Creatinine Glucose POC Glucose 143 H 151 H 155 H Lactic Acid Calcium Phosphorus Magnesium Iron TIBC Direct Bilirubin AST ALT Alkaline Phosphatase Total Creatine Kinase CK-MB (CK-2) C-Reactive Protein Total Protein Albumin Vitamin B12 Salicylates Acetaminophen Miscellaneous Test Crossmatch 04/01/19 04/01/19 04/01/19 03:12 04:03 04:16 WBC RBC Hgb Hct MCV MCH MCHC RDW Plt Count Roberts % (Auto) Lymph # Seg Neuts % (Manual) Lymphocytes % (Manual) Nucleated RBC % Seg Neutrophils # Man Lymphocytes # (Manual) Monocytes # (Manual) PT INR APTT D-Dimer POC ABG pH ABG pH POC ABG pCO2 POC ABG pO2 ABG pO2 ABG HCO3 ABG O2 Saturation ABG Base Excess ABG Hemoglobin VBG pH Oxyhemoglobin Sodium Potassium Chloride Carbon Dioxide BUN Creatinine Glucose POC Glucose 140 H 143 H 142 H Lactic Acid Calcium Phosphorus Magnesium Iron TIBC Direct Bilirubin AST ALT Alkaline Phosphatase Total Creatine Kinase CK-MB (CK-2) C-Reactive Protein Total Protein Albumin Vitamin B12 Salicylates Acetaminophen Miscellaneous Test Crossmatch 04/01/19 04/01/19 04/01/19 05:01 05:01 05:08 WBC RBC 2.05 L Hgb 6.8 L Hct 20.5 L MCV 100 H MCH 33 H MCHC RDW 17.7 H Plt Count 53 L Roberts % (Auto) Lymph # Seg Neuts % (Manual) 71.0 H Lymphocytes % (Manual) Nucleated RBC % Seg Neutrophils # Man Lymphocytes # (Manual) Monocytes # (Manual) PT INR APTT D-Dimer POC ABG pH ABG pH POC ABG pCO2 POC ABG pO2 ABG pO2 ABG HCO3 ABG O2 Saturation ABG Base Excess ABG Hemoglobin VBG pH Oxyhemoglobin Sodium Potassium Chloride Carbon Dioxide BUN Creatinine Glucose POC Glucose 119 H Lactic Acid Calcium Phosphorus Magnesium Iron TIBC Direct Bilirubin 0.3 H AST 4601 H ALT 1542 H Alkaline Phosphatase 185 H Total Creatine Kinase CK-MB (CK-2) C-Reactive Protein Total Protein 3.8 L Albumin 1.6 L Vitamin B12 Salicylates Acetaminophen Miscellaneous Test Crossmatch 04/01/19 04/01/19 04/01/19 05:23 06:37 08:15 WBC RBC Hgb Hct MCV MCH MCHC RDW Plt Count [place] % (Auto) Lymph # Seg Neuts % (Manual) Lymphocytes % (Manual) Nucleated RBC % Seg Neutrophils # Man Lymphocytes # (Manual) Monocytes # (Manual) PT INR APTT D-Dimer POC ABG pH ABG pH POC ABG pCO2 POC ABG pO2 ABG pO2 ABG HCO3 ABG O2 Saturation ABG Base Excess ABG Hemoglobin VBG pH Oxyhemoglobin Sodium Potassium Chloride Carbon Dioxide BUN Creatinine Glucose POC Glucose 115 H 124 H 138 H Lactic Acid Calcium Phosphorus Magnesium Iron TIBC Direct Bilirubin AST ALT Alkaline Phosphatase Total Creatine Kinase CK-MB (CK-2) C-Reactive Protein Total Protein Albumin Vitamin B12 Salicylates Acetaminophen Miscellaneous Test Crossmatch 04/01/19 04/01/19 04/01/19 09:50 10:10 10:31 WBC RBC Hgb 6.5 L Hct 19.2 L* MCV MCH MCHC RDW Plt Count [place] % (Auto) Lymph # Seg Neuts % (Manual) Lymphocytes % (Manual) Nucleated RBC % Seg Neutrophils # Man Lymphocytes # (Manual) Monocytes # (Manual) PT INR APTT D-Dimer POC ABG pH ABG pH POC ABG pCO2 POC ABG pO2 ABG pO2 ABG HCO3 ABG O2 Saturation ABG Base Excess ABG Hemoglobin VBG pH Oxyhemoglobin Sodium 149 H Potassium 3.5 L Chloride 119.9 H Carbon Dioxide 21 L BUN 33 H Creatinine 0.5 L Glucose 142 H POC Glucose 185 H Lactic Acid Calcium 7.3 L Phosphorus Magnesium Iron TIBC Direct Bilirubin AST 3686 H ALT 1440 H Alkaline Phosphatase 185 H Total Creatine Kinase CK-MB (CK-2) C-Reactive Protein Total Protein 3.7 L Albumin 1.8 L Vitamin B12 Salicylates Acetaminophen Miscellaneous Test Crossmatch 04/01/19 04/01/19 04/01/19 11:35 13:05 14:35 WBC RBC Hgb Hct MCV MCH MCHC RDW Plt Count [place] % (Auto) Lymph # Seg Neuts % (Manual) Lymphocytes % (Manual) Nucleated RBC % Seg Neutrophils # Man Lymphocytes # (Manual) Monocytes # (Manual) PT INR APTT D-Dimer POC ABG pH ABG pH POC ABG pCO2 POC ABG pO2 ABG pO2 ABG HCO3 ABG O2 Saturation ABG Base Excess ABG Hemoglobin VBG pH Oxyhemoglobin Sodium Potassium Chloride Carbon Dioxide BUN Creatinine Glucose POC Glucose 201 H 169 H 134 H Lactic Acid Calcium Phosphorus Magnesium Iron TIBC Direct Bilirubin AST ALT Alkaline Phosphatase Total Creatine Kinase CK-MB (CK-2) C-Reactive Protein Total Protein Albumin Vitamin B12 Salicylates Acetaminophen Miscellaneous Test Crossmatch 04/01/19 04/01/19 04/01/19 17:13 17:14 18:30 WBC RBC Hgb Hct MCV MCH MCHC RDW Plt Count [place] % (Auto) Lymph # Seg Neuts % (Manual) Lymphocytes % (Manual) Nucleated RBC % Seg Neutrophils # Man Lymphocytes # (Manual) Monocytes # (Manual) PT INR APTT D-Dimer 5203.68 H POC ABG pH ABG pH POC ABG pCO2 POC ABG pO2 ABG pO2 ABG HCO3 ABG O2 Saturation ABG Base Excess ABG Hemoglobin VBG pH Oxyhemoglobin Sodium Potassium Chloride Carbon Dioxide BUN Creatinine Glucose POC Glucose 69 L 128 H Lactic Acid Calcium Phosphorus Magnesium Iron TIBC Direct Bilirubin AST ALT Alkaline Phosphatase Total Creatine Kinase CK-MB (CK-2) C-Reactive Protein Total Protein Albumin Vitamin B12 Salicylates Acetaminophen Miscellaneous Test Crossmatch 04/01/19 04/01/19 04/02/19 22:50 Unknown 03:40 WBC RBC Hgb Hct MCV MCH MCHC RDW Plt Count [place] % (Auto) Lymph # Seg Neuts % (Manual) Lymphocytes % (Manual) Nucleated RBC % Seg Neutrophils # Man Lymphocytes # (Manual) Monocytes # (Manual) PT INR APTT D-Dimer POC ABG pH ABG pH POC ABG pCO2 POC ABG pO2 ABG pO2 78.3 L 142.8 H ABG HCO3 15.5 L ABG O2 Saturation ABG Base Excess -3.5 L -8.2 L ABG Hemoglobin 6.8 L 8.2 L VBG pH Oxyhemoglobin 94.3 L Sodium Potassium Chloride Carbon Dioxide BUN Creatinine Glucose POC Glucose 342 H Lactic Acid Calcium Phosphorus Magnesium Iron TIBC Direct Bilirubin AST ALT Alkaline Phosphatase Total Creatine Kinase CK-MB (CK-2) C-Reactive Protein Total Protein Albumin Vitamin B12 Salicylates Acetaminophen Miscellaneous Test Crossmatch 04/02/19 04/02/19 04/02/19 03:49 06:50 07:48 WBC RBC 2.65 L Hgb 8.6 L Hct 25.1 L MCV MCH MCHC RDW 17.6 H Plt Count 48 L Roberts % (Auto) Lymph # Seg Neuts % (Manual) Lymphocytes % (Manual) Nucleated RBC % Seg Neutrophils # Man Lymphocytes # (Manual) Monocytes # (Manual) PT INR APTT D-Dimer POC ABG pH ABG pH POC ABG pCO2 POC ABG pO2 ABG pO2 ABG HCO3 ABG O2 Saturation ABG Base Excess ABG Hemoglobin VBG pH Oxyhemoglobin Sodium Potassium Chloride Carbon Dioxide BUN Creatinine Glucose POC Glucose 247 H 200 H Lactic Acid Calcium Phosphorus Magnesium Iron TIBC Direct Bilirubin AST ALT Alkaline Phosphatase Total Creatine Kinase CK-MB (CK-2) C-Reactive Protein Total Protein Albumin Vitamin B12 Salicylates Acetaminophen Miscellaneous Test Crossmatch 04/02/19 04/02/19 04/02/19 07:48 11:18 14:07 WBC RBC Hgb Hct MCV MCH MCHC RDW Plt Count [place] % (Auto) Lymph # Seg Neuts % (Manual) Lymphocytes % (Manual) Nucleated RBC % Seg Neutrophils # Man Lymphocytes # (Manual) Monocytes # (Manual) PT INR APTT D-Dimer POC ABG pH ABG pH POC ABG pCO2 POC ABG pO2 ABG pO2 ABG HCO3 ABG O2 Saturation ABG Base Excess ABG Hemoglobin VBG pH Oxyhemoglobin Sodium Potassium 3.5 L Chloride 115.7 H Carbon Dioxide 19 L BUN 29 H Creatinine 0.5 L Glucose 159 H POC Glucose 154 H 149 H Lactic Acid Calcium 7.5 L Phosphorus Magnesium Iron TIBC Direct Bilirubin AST 1418 H ALT 1134 H Alkaline Phosphatase 242 H Total Creatine Kinase CK-MB (CK-2) C-Reactive Protein Total Protein 4.2 L Albumin 2.1 L Vitamin B12 Salicylates Acetaminophen Miscellaneous Test Crossmatch 04/02/19 04/02/19 04/02/19 18:09 19:46 23:05 WBC RBC Hgb Hct MCV MCH MCHC RDW Plt Count [place] % (Auto) Lymph # Seg Neuts % (Manual) Lymphocytes % (Manual) Nucleated RBC % Seg Neutrophils # Man Lymphocytes # (Manual) Monocytes # (Manual) PT INR APTT D-Dimer POC ABG pH ABG pH POC ABG pCO2 POC ABG pO2 ABG pO2 ABG HCO3 ABG O2 Saturation ABG Base Excess ABG Hemoglobin VBG pH Oxyhemoglobin Sodium Potassium Chloride Carbon Dioxide BUN Creatinine Glucose POC Glucose 188 H 209 H 247 H Lactic Acid Calcium Phosphorus Magnesium Iron TIBC Direct Bilirubin AST ALT Alkaline Phosphatase Total Creatine Kinase CK-MB (CK-2) C-Reactive Protein Total Protein Albumin Vitamin B12 Salicylates Acetaminophen Miscellaneous Test Crossmatch 04/03/19 04/03/19 04/03/19 02:58 03:40 03:40 WBC RBC 2.87 L Hgb 9.3 L Hct 27.0 L MCV MCH MCHC RDW 17.2 H Plt Count 65 L Roberts % (Auto) 9.8 H Lymph # 1.1 L Seg Neuts % (Manual) Lymphocytes % (Manual) Nucleated RBC % Seg Neutrophils # Man Lymphocytes # (Manual) Monocytes # (Manual) PT INR APTT D-Dimer POC ABG pH ABG pH POC ABG pCO2 POC ABG pO2 ABG pO2 ABG HCO3 ABG O2 Saturation ABG Base Excess ABG Hemoglobin VBG pH Oxyhemoglobin Sodium 147 H Potassium 3.5 L Chloride 116.7 H Carbon Dioxide 18 L BUN Creatinine 0.4 L Glucose 150 H POC Glucose 166 H Lactic Acid Calcium 8.1 L Phosphorus 2.20 L Magnesium Iron TIBC Direct Bilirubin AST 594 H ALT 861 H Alkaline Phosphatase 299 H Total Creatine Kinase CK-MB (CK-2) C-Reactive Protein Total Protein 4.4 L Albumin 2.1 L Vitamin B12 Salicylates Acetaminophen Miscellaneous Test Crossmatch 04/03/19 04/03/19 04/03/19 05:35 07:02 08:23 WBC RBC Hgb Hct MCV MCH MCHC RDW Plt Count [place] % (Auto) Lymph # Seg Neuts % (Manual) Lymphocytes % (Manual) Nucleated RBC % Seg Neutrophils # Man Lymphocytes # (Manual) Monocytes # (Manual) PT INR APTT D-Dimer POC ABG pH ABG pH POC ABG pCO2 POC ABG pO2 ABG pO2 97.7 H ABG HCO3 19.3 L ABG O2 Saturation ABG Base Excess -5.0 L ABG Hemoglobin 8.0 L VBG pH Oxyhemoglobin Sodium Potassium Chloride Carbon Dioxide BUN Creatinine Glucose POC Glucose 135 H 132 H Lactic Acid Calcium Phosphorus Magnesium Iron TIBC Direct Bilirubin AST ALT Alkaline Phosphatase Total Creatine Kinase CK-MB (CK-2) C-Reactive Protein Total Protein Albumin Vitamin B12 Salicylates Acetaminophen Miscellaneous Test Crossmatch 04/03/19 04/03/19 04/03/19 11:58 15:11 17:53 WBC RBC Hgb Hct MCV MCH MCHC RDW Plt Count [place] % (Auto) Lymph # Seg Neuts % (Manual) Lymphocytes % (Manual) Nucleated RBC % Seg Neutrophils # Man Lymphocytes # (Manual) Monocytes # (Manual) PT INR APTT D-Dimer POC ABG pH ABG pH POC ABG pCO2 POC ABG pO2 ABG pO2 ABG HCO3 ABG O2 Saturation ABG Base Excess ABG Hemoglobin VBG pH Oxyhemoglobin Sodium Potassium Chloride Carbon Dioxide BUN Creatinine Glucose POC Glucose 179 H 213 H 223 H Lactic Acid Calcium Phosphorus Magnesium Iron TIBC Direct Bilirubin AST ALT Alkaline Phosphatase Total Creatine Kinase CK-MB (CK-2) C-Reactive Protein Total Protein Albumin Vitamin B12 Salicylates Acetaminophen Miscellaneous Test Crossmatch 04/03/19 04/04/19 04/04/19 23:06 02:36 06:41 WBC RBC Hgb Hct MCV MCH MCHC RDW Plt Count [place] % (Auto) Lymph # Seg Neuts % (Manual) Lymphocytes % (Manual) Nucleated RBC % Seg Neutrophils # Man Lymphocytes # (Manual) Monocytes # (Manual) PT INR APTT D-Dimer POC ABG pH ABG pH POC ABG pCO2 POC ABG pO2 ABG pO2 ABG HCO3 ABG O2 Saturation ABG Base Excess ABG Hemoglobin VBG pH Oxyhemoglobin Sodium Potassium Chloride Carbon Dioxide BUN Creatinine Glucose POC Glucose 189 H 157 H 131 H Lactic Acid Calcium Phosphorus Magnesium Iron TIBC Direct Bilirubin AST ALT Alkaline Phosphatase Total Creatine Kinase CK-MB (CK-2) C-Reactive Protein Total Protein Albumin Vitamin B12 Salicylates Acetaminophen Miscellaneous Test Crossmatch 04/04/19 04/04/19 04/04/19 11:42 15:45 18:21 WBC RBC Hgb Hct MCV MCH MCHC RDW Plt Count [place] % (Auto) Lymph # Seg Neuts % (Manual) Lymphocytes % (Manual) Nucleated RBC % Seg Neutrophils # Man Lymphocytes # (Manual) Monocytes # (Manual) PT INR APTT D-Dimer POC ABG pH ABG pH POC ABG pCO2 POC ABG pO2 ABG pO2 ABG HCO3 ABG O2 Saturation ABG Base Excess ABG Hemoglobin VBG pH Oxyhemoglobin Sodium Potassium Chloride Carbon Dioxide BUN Creatinine Glucose POC Glucose 233 H 236 H 255 H Lactic Acid Calcium Phosphorus Magnesium Iron TIBC Direct Bilirubin AST ALT Alkaline Phosphatase Total Creatine Kinase CK-MB (CK-2) C-Reactive Protein Total Protein Albumin Vitamin B12 Salicylates Acetaminophen Miscellaneous Test Crossmatch 04/04/19 04/05/19 04/05/19 21:21 03:06 06:05 WBC RBC 2.68 L Hgb 8.5 L Hct 26.3 L MCV 98 H MCH MCHC RDW 17.4 H Plt Count [place] % (Auto) Lymph # Seg Neuts % (Manual) Lymphocytes % (Manual) Nucleated RBC % Seg Neutrophils # Man Lymphocytes # (Manual) Monocytes # (Manual) PT INR APTT D-Dimer POC ABG pH ABG pH POC ABG pCO2 POC ABG pO2 ABG pO2 ABG HCO3 ABG O2 Saturation ABG Base Excess ABG Hemoglobin VBG pH Oxyhemoglobin Sodium Potassium Chloride Carbon Dioxide BUN Creatinine Glucose POC Glucose 132 H 161 H Lactic Acid Calcium Phosphorus Magnesium Iron TIBC Direct Bilirubin AST ALT Alkaline Phosphatase Total Creatine Kinase CK-MB (CK-2) C-Reactive Protein Total Protein Albumin Vitamin B12 Salicylates Acetaminophen Miscellaneous Test Crossmatch 04/05/19 04/05/19 04/05/19 06:05 06:49 10:23 WBC RBC Hgb Hct MCV MCH MCHC RDW Plt Count [place] % (Auto) Lymph # Seg Neuts % (Manual) Lymphocytes % (Manual) Nucleated RBC % Seg Neutrophils # Man Lymphocytes # (Manual) Monocytes # (Manual) PT INR APTT D-Dimer POC ABG pH ABG pH POC ABG pCO2 POC ABG pO2 ABG pO2 ABG HCO3 ABG O2 Saturation ABG Base Excess ABG Hemoglobin VBG pH Oxyhemoglobin Sodium Potassium Chloride 112.5 H Carbon Dioxide BUN Creatinine 0.2 L Glucose 237 H POC Glucose 283 H 296 H Lactic Acid Calcium 7.9 L Phosphorus Magnesium Iron TIBC Direct Bilirubin AST ALT Alkaline Phosphatase Total Creatine Kinase CK-MB (CK-2) C-Reactive Protein Total Protein Albumin Vitamin B12 Salicylates Acetaminophen Miscellaneous Test Crossmatch 04/05/19 04/05/19 04/05/19 14:46 18:19 20:35 WBC RBC Hgb Hct MCV MCH MCHC RDW Plt Count [place] % (Auto) Lymph # Seg Neuts % (Manual) Lymphocytes % (Manual) Nucleated RBC % Seg Neutrophils # Man Lymphocytes # (Manual) Monocytes # (Manual) PT INR APTT D-Dimer POC ABG pH ABG pH POC ABG pCO2 POC ABG pO2 ABG pO2 ABG HCO3 ABG O2 Saturation ABG Base Excess ABG Hemoglobin VBG pH Oxyhemoglobin Sodium Potassium Chloride Carbon Dioxide BUN Creatinine Glucose POC Glucose 225 H 259 H 236 H Lactic Acid Calcium Phosphorus Magnesium Iron TIBC Direct Bilirubin AST ALT Alkaline Phosphatase Total Creatine Kinase CK-MB (CK-2) C-Reactive Protein Total Protein Albumin Vitamin B12 Salicylates Acetaminophen Miscellaneous Test Crossmatch 04/05/19 04/06/19 04/06/19 23:11 00:06 03:14 WBC RBC Hgb Hct MCV MCH MCHC RDW Plt Count [place] % (Auto) Lymph # Seg Neuts % (Manual) Lymphocytes % (Manual) Nucleated RBC % Seg Neutrophils # Man Lymphocytes # (Manual) Monocytes # (Manual) PT INR APTT D-Dimer 4526.86 H POC ABG pH ABG pH POC ABG pCO2 POC ABG pO2 ABG pO2 ABG HCO3 ABG O2 Saturation ABG Base Excess ABG Hemoglobin VBG pH Oxyhemoglobin Sodium Potassium Chloride Carbon Dioxide BUN Creatinine Glucose POC Glucose 205 H 228 H Lactic Acid Calcium Phosphorus Magnesium Iron TIBC Direct Bilirubin AST ALT Alkaline Phosphatase Total Creatine Kinase CK-MB (CK-2) C-Reactive Protein Total Protein Albumin Vitamin B12 Salicylates Acetaminophen Miscellaneous Test Crossmatch 04/06/19 04/06/19 04/06/19 05:20 05:20 07:57 WBC 15.1 H RBC 2.90 L Hgb 9.1 L Hct 28.0 L MCV MCH MCHC RDW 17.3 H Plt Count [place] % (Auto) Lymph # Seg Neuts % (Manual) Lymphocytes % (Manual) Nucleated RBC % Seg Neutrophils # Man Lymphocytes # (Manual) Monocytes # (Manual) PT INR APTT D-Dimer POC ABG pH ABG pH POC ABG pCO2 POC ABG pO2 ABG pO2 ABG HCO3 ABG O2 Saturation ABG Base Excess ABG Hemoglobin VBG pH Oxyhemoglobin Sodium Potassium Chloride Carbon Dioxide BUN Creatinine 0.2 L Glucose 161 H POC Glucose 191 H Lactic Acid Calcium 8.0 L Phosphorus Magnesium Iron TIBC Direct Bilirubin AST ALT Alkaline Phosphatase Total Creatine Kinase CK-MB (CK-2) C-Reactive Protein Total Protein Albumin Vitamin B12 Salicylates Acetaminophen Miscellaneous Test Crossmatch 04/06/19 04/06/19 04/06/19 12:09 18:24 22:07 WBC RBC Hgb Hct MCV MCH MCHC RDW Plt Count [place] % (Auto) Lymph # Seg Neuts % (Manual) Lymphocytes % (Manual) Nucleated RBC % Seg Neutrophils # Man Lymphocytes # (Manual) Monocytes # (Manual) PT INR APTT D-Dimer POC ABG pH ABG pH POC ABG pCO2 POC ABG pO2 ABG pO2 ABG HCO3 ABG O2 Saturation ABG Base Excess ABG Hemoglobin VBG pH Oxyhemoglobin Sodium Potassium Chloride Carbon Dioxide BUN Creatinine Glucose POC Glucose 143 H 161 H 140 H Lactic Acid Calcium Phosphorus Magnesium Iron TIBC Direct Bilirubin AST ALT Alkaline Phosphatase Total Creatine Kinase CK-MB (CK-2) C-Reactive Protein Total Protein Albumin Vitamin B12 Salicylates Acetaminophen Miscellaneous Test Crossmatch 04/07/19 04/07/19 04/07/19 03:00 04:30 04:30 WBC 13.0 H RBC 2.65 L Hgb 8.3 L Hct 25.5 L MCV MCH MCHC RDW 17.0 H Plt Count [place] % (Auto) Lymph # Seg Neuts % (Manual) Lymphocytes % (Manual) Nucleated RBC % Seg Neutrophils # Man Lymphocytes # (Manual) Monocytes # (Manual) PT INR APTT D-Dimer POC ABG pH ABG pH POC ABG pCO2 POC ABG pO2 ABG pO2 ABG HCO3 ABG O2 Saturation ABG Base Excess ABG Hemoglobin VBG pH Oxyhemoglobin Sodium Potassium Chloride Carbon Dioxide BUN Creatinine 0.2 L Glucose 208 H POC Glucose 224 H Lactic Acid Calcium 7.7 L Phosphorus Magnesium Iron TIBC Direct Bilirubin AST ALT Alkaline Phosphatase Total Creatine Kinase CK-MB (CK-2) C-Reactive Protein Total Protein Albumin Vitamin B12 Salicylates Acetaminophen Miscellaneous Test Crossmatch 04/07/19 04/07/19 04/07/19 05:47 08:27 10:33 WBC RBC Hgb Hct MCV MCH MCHC RDW Plt Count [place] % (Auto) Lymph # Seg Neuts % (Manual) Lymphocytes % (Manual) Nucleated RBC % Seg Neutrophils # Man Lymphocytes # (Manual) Monocytes # (Manual) PT INR APTT D-Dimer POC ABG pH ABG pH POC ABG pCO2 POC ABG pO2 ABG pO2 ABG HCO3 ABG O2 Saturation ABG Base Excess ABG Hemoglobin VBG pH Oxyhemoglobin Sodium Potassium Chloride Carbon Dioxide BUN Creatinine Glucose POC Glucose 225 H 176 H 207 H Lactic Acid Calcium Phosphorus Magnesium Iron TIBC Direct Bilirubin AST ALT Alkaline Phosphatase Total Creatine Kinase CK-MB (CK-2) C-Reactive Protein Total Protein Albumin Vitamin B12 Salicylates Acetaminophen Miscellaneous Test Crossmatch 04/07/19 04/07/19 04/07/19 14:13 18:32 22:42 WBC RBC Hgb Hct MCV MCH MCHC RDW Plt Count [place] % (Auto) Lymph # Seg Neuts % (Manual) Lymphocytes % (Manual) Nucleated RBC % Seg Neutrophils # Man Lymphocytes # (Manual) Monocytes # (Manual) PT INR APTT D-Dimer POC ABG pH ABG pH POC ABG pCO2 POC ABG pO2 ABG pO2 ABG HCO3 ABG O2 Saturation ABG Base Excess ABG Hemoglobin VBG pH Oxyhemoglobin Sodium Potassium Chloride Carbon Dioxide BUN Creatinine Glucose POC Glucose 219 H 227 H 238 H Lactic Acid Calcium Phosphorus Magnesium Iron TIBC Direct Bilirubin AST ALT Alkaline Phosphatase Total Creatine Kinase CK-MB (CK-2) C-Reactive Protein Total Protein Albumin Vitamin B12 Salicylates Acetaminophen Miscellaneous Test Crossmatch 04/08/19 04/08/19 04/08/19 02:31 05:37 14:10 WBC RBC Hgb Hct MCV MCH MCHC RDW Plt Count [place] % (Auto) Lymph # Seg Neuts % (Manual) Lymphocytes % (Manual) Nucleated RBC % Seg Neutrophils # Man Lymphocytes # (Manual) Monocytes # (Manual) PT INR APTT D-Dimer POC ABG pH ABG pH POC ABG pCO2 POC ABG pO2 ABG pO2 ABG HCO3 ABG O2 Saturation ABG Base Excess ABG Hemoglobin VBG pH Oxyhemoglobin Sodium Potassium Chloride Carbon Dioxide BUN Creatinine Glucose POC Glucose 194 H 194 H 139 H Lactic Acid Calcium Phosphorus Magnesium Iron TIBC Direct Bilirubin AST ALT Alkaline Phosphatase Total Creatine Kinase CK-MB (CK-2) C-Reactive Protein Total Protein Albumin Vitamin B12 Salicylates Acetaminophen Miscellaneous Test Crossmatch 04/08/19 04/08/19 04/09/19 17:43 23:20 03:28 WBC RBC Hgb Hct MCV MCH MCHC RDW Plt Count [place] % (Auto) Lymph # Seg Neuts % (Manual) Lymphocytes % (Manual) Nucleated RBC % Seg Neutrophils # Man Lymphocytes # (Manual) Monocytes # (Manual) PT INR APTT D-Dimer POC ABG pH ABG pH POC ABG pCO2 POC ABG pO2 ABG pO2 ABG HCO3 ABG O2 Saturation ABG Base Excess ABG Hemoglobin VBG pH Oxyhemoglobin Sodium Potassium Chloride Carbon Dioxide BUN Creatinine Glucose POC Glucose 261 H 277 H 301 H Lactic Acid Calcium Phosphorus Magnesium Iron TIBC Direct Bilirubin AST ALT Alkaline Phosphatase Total Creatine Kinase CK-MB (CK-2) C-Reactive Protein Total Protein Albumin Vitamin B12 Salicylates Acetaminophen Miscellaneous Test Crossmatch 04/09/19 04/09/19 04/09/19 05:35 05:35 05:35 WBC RBC 2.78 L Hgb 9.0 L Hct 26.7 L MCV MCH MCHC RDW 17.0 H Plt Count [place] % (Auto) Lymph # Seg Neuts % (Manual) Lymphocytes % (Manual) Nucleated RBC % Seg Neutrophils # Man Lymphocytes # (Manual) Monocytes # (Manual) PT INR APTT D-Dimer POC ABG pH ABG pH POC ABG pCO2 POC ABG pO2 ABG pO2 ABG HCO3 ABG O2 Saturation ABG Base Excess ABG Hemoglobin VBG pH Oxyhemoglobin Sodium Potassium Chloride Carbon Dioxide 31 H BUN Creatinine 0.2 L Glucose 218 H POC Glucose 240 H Lactic Acid Calcium Phosphorus Magnesium Iron TIBC Direct Bilirubin AST ALT Alkaline Phosphatase Total Creatine Kinase CK-MB (CK-2) C-Reactive Protein Total Protein Albumin Vitamin B12 Salicylates Acetaminophen Miscellaneous Test Crossmatch 04/09/19 04/09/19 04/09/19 09:01 12:23 17:33 WBC RBC Hgb Hct MCV MCH MCHC RDW Plt Count [place] % (Auto) Lymph # Seg Neuts % (Manual) Lymphocytes % (Manual) Nucleated RBC % Seg Neutrophils # Man Lymphocytes # (Manual) Monocytes # (Manual) PT INR APTT D-Dimer POC ABG pH ABG pH POC ABG pCO2 POC ABG pO2 ABG pO2 ABG HCO3 ABG O2 Saturation ABG Base Excess ABG Hemoglobin VBG pH Oxyhemoglobin Sodium Potassium Chloride Carbon Dioxide BUN Creatinine Glucose POC Glucose 160 H 162 H 149 H Lactic Acid Calcium Phosphorus Magnesium Iron TIBC Direct Bilirubin AST ALT Alkaline Phosphatase Total Creatine Kinase CK-MB (CK-2) C-Reactive Protein Total Protein Albumin Vitamin B12 Salicylates Acetaminophen Miscellaneous Test Crossmatch 04/09/19 04/09/19 04/10/19 21:26 22:28 03:16 WBC RBC Hgb Hct MCV MCH MCHC RDW Plt Count [place] % (Auto) Lymph # Seg Neuts % (Manual) Lymphocytes % (Manual) Nucleated RBC % Seg Neutrophils # Man Lymphocytes # (Manual) Monocytes # (Manual) PT INR APTT D-Dimer POC ABG pH ABG pH POC ABG pCO2 POC ABG pO2 ABG pO2 ABG HCO3 ABG O2 Saturation ABG Base Excess ABG Hemoglobin VBG pH Oxyhemoglobin Sodium Potassium Chloride Carbon Dioxide BUN Creatinine Glucose POC Glucose 196 H 224 H 163 H Lactic Acid Calcium Phosphorus Magnesium Iron TIBC Direct Bilirubin AST ALT Alkaline Phosphatase Total Creatine Kinase CK-MB (CK-2) C-Reactive Protein Total Protein Albumin Vitamin B12 Salicylates Acetaminophen Miscellaneous Test Crossmatch 04/10/19 04/10/19 04/10/19 04:15 04:15 05:30 WBC RBC 2.88 L Hgb 9.2 L Hct 27.9 L MCV MCH MCHC RDW 17.0 H Plt Count 454 H Roberts % (Auto) Lymph # Seg Neuts % (Manual) Lymphocytes % (Manual) Nucleated RBC % Seg Neutrophils # Man Lymphocytes # (Manual) Monocytes # (Manual) PT INR APTT D-Dimer POC ABG pH ABG pH POC ABG pCO2 POC ABG pO2 ABG pO2 ABG HCO3 ABG O2 Saturation ABG Base Excess ABG Hemoglobin VBG pH Oxyhemoglobin Sodium Potassium Chloride Carbon Dioxide 32 H BUN Creatinine 0.2 L Glucose 126 H POC Glucose 135 H Lactic Acid Calcium Phosphorus Magnesium Iron TIBC Direct Bilirubin AST ALT Alkaline Phosphatase Total Creatine Kinase CK-MB (CK-2) C-Reactive Protein Total Protein Albumin Vitamin B12 Salicylates Acetaminophen Miscellaneous Test Crossmatch 04/10/19 04/10/19 04/10/19 12:14 15:29 23:38 WBC RBC Hgb Hct MCV MCH MCHC RDW Plt Count [place] % (Auto) Lymph # Seg Neuts % (Manual) Lymphocytes % (Manual) Nucleated RBC % Seg Neutrophils # Man Lymphocytes # (Manual) Monocytes # (Manual) PT INR APTT D-Dimer POC ABG pH ABG pH POC ABG pCO2 POC ABG pO2 ABG pO2 ABG HCO3 ABG O2 Saturation ABG Base Excess ABG Hemoglobin VBG pH Oxyhemoglobin Sodium Potassium Chloride Carbon Dioxide BUN Creatinine Glucose POC Glucose 109 H 149 H 268 H Lactic Acid Calcium Phosphorus Magnesium Iron TIBC Direct Bilirubin AST ALT Alkaline Phosphatase Total Creatine Kinase CK-MB (CK-2) C-Reactive Protein Total Protein Albumin Vitamin B12 Salicylates Acetaminophen Miscellaneous Test Crossmatch 04/11/19 04/11/19 04/11/19 05:27 12:08 18:08 WBC RBC Hgb Hct MCV MCH MCHC RDW Plt Count [place] % (Auto) Lymph # Seg Neuts % (Manual) Lymphocytes % (Manual) Nucleated RBC % Seg Neutrophils # Man Lymphocytes # (Manual) Monocytes # (Manual) PT INR APTT D-Dimer POC ABG pH ABG pH POC ABG pCO2 POC ABG pO2 ABG pO2 ABG HCO3 ABG O2 Saturation ABG Base Excess ABG Hemoglobin VBG pH Oxyhemoglobin Sodium Potassium Chloride Carbon Dioxide BUN Creatinine Glucose POC Glucose 109 H 185 H 190 H Lactic Acid Calcium Phosphorus Magnesium Iron TIBC Direct Bilirubin AST ALT Alkaline Phosphatase Total Creatine Kinase CK-MB (CK-2) C-Reactive Protein Total Protein Albumin Vitamin B12 Salicylates Acetaminophen Miscellaneous Test Crossmatch 04/11/19 04/12/19 04/12/19 23:23 06:00 11:42 WBC RBC Hgb Hct MCV MCH MCHC RDW Plt Count [place] % (Auto) Lymph # Seg Neuts % (Manual) Lymphocytes % (Manual) Nucleated RBC % Seg Neutrophils # Man Lymphocytes # (Manual) Monocytes # (Manual) PT INR APTT D-Dimer POC ABG pH ABG pH POC ABG pCO2 POC ABG pO2 ABG pO2 ABG HCO3 ABG O2 Saturation ABG Base Excess ABG Hemoglobin VBG pH Oxyhemoglobin Sodium Potassium Chloride Carbon Dioxide BUN Creatinine Glucose POC Glucose 127 H 201 H 161 H Lactic Acid Calcium Phosphorus Magnesium Iron TIBC Direct Bilirubin AST ALT Alkaline Phosphatase Total Creatine Kinase CK-MB (CK-2) C-Reactive Protein Total Protein Albumin Vitamin B12 Salicylates Acetaminophen Miscellaneous Test Crossmatch 04/12/19 04/12/19 04/12/19 17:56 20:07 21:59 WBC RBC Hgb Hct MCV MCH MCHC RDW Plt Count [place] % (Auto) Lymph # Seg Neuts % (Manual) Lymphocytes % (Manual) Nucleated RBC % Seg Neutrophils # Man Lymphocytes # (Manual) Monocytes # (Manual) PT INR APTT D-Dimer POC ABG pH ABG pH POC ABG pCO2 POC ABG pO2 ABG pO2 ABG HCO3 ABG O2 Saturation ABG Base Excess ABG Hemoglobin VBG pH Oxyhemoglobin Sodium Potassium Chloride Carbon Dioxide BUN Creatinine Glucose POC Glucose 145 H 158 H 203 H Lactic Acid Calcium Phosphorus Magnesium Iron TIBC Direct Bilirubin AST ALT Alkaline Phosphatase Total Creatine Kinase CK-MB (CK-2) C-Reactive Protein Total Protein Albumin Vitamin B12 Salicylates Acetaminophen Miscellaneous Test Crossmatch 04/12/19 04/13/19 04/13/19 23:37 08:50 08:50 WBC 15.7 H RBC 3.12 L Hgb Hct 30.2 L MCV MCH 33 H MCHC RDW 18.0 H Plt Count 678 H Roberts % (Auto) Lymph # Seg Neuts % (Manual) Lymphocytes % (Manual) Nucleated RBC % Seg Neutrophils # Man Lymphocytes # (Manual) Monocytes # (Manual) PT INR APTT D-Dimer POC ABG pH ABG pH POC ABG pCO2 POC ABG pO2 ABG pO2 ABG HCO3 ABG O2 Saturation ABG Base Excess ABG Hemoglobin VBG pH Oxyhemoglobin Sodium Potassium Chloride Carbon Dioxide BUN Creatinine < 0.2 L Glucose 46 L POC Glucose 238 H Lactic Acid Calcium Phosphorus Magnesium Iron TIBC Direct Bilirubin AST ALT Alkaline Phosphatase Total Creatine Kinase CK-MB (CK-2) C-Reactive Protein Total Protein Albumin Vitamin B12 Salicylates Acetaminophen Miscellaneous Test Crossmatch 04/13/19 04/13/19 04/13/19 11:56 17:27 23:57 WBC RBC Hgb Hct MCV MCH MCHC RDW Plt Count Roberts % (Auto) Lymph # Seg Neuts % (Manual) Lymphocytes % (Manual) Nucleated RBC % Seg Neutrophils # Man Lymphocytes # (Manual) Monocytes # (Manual) PT INR APTT D-Dimer POC ABG pH ABG pH POC ABG pCO2 POC ABG pO2 ABG pO2 ABG HCO3 ABG O2 Saturation ABG Base Excess ABG Hemoglobin VBG pH Oxyhemoglobin Sodium Potassium Chloride Carbon Dioxide BUN Creatinine Glucose POC Glucose 40 L 66 L 65 L Lactic Acid Calcium Phosphorus Magnesium Iron TIBC Direct Bilirubin AST ALT Alkaline Phosphatase Total Creatine Kinase CK-MB (CK-2) C-Reactive Protein Total Protein Albumin Vitamin B12 Salicylates Acetaminophen Miscellaneous Test Crossmatch 04/14/19 04/14/19 04/14/19 05:28 08:20 08:20 WBC 17.8 H RBC 3.26 L Hgb Hct MCV 98 H MCH MCHC RDW 18.3 H Plt Count 622 H Roberts % (Auto) Lymph # Seg Neuts % (Manual) Lymphocytes % (Manual) Nucleated RBC % Seg Neutrophils # Man Lymphocytes # (Manual) Monocytes # (Manual) PT INR APTT D-Dimer POC ABG pH ABG pH POC ABG pCO2 POC ABG pO2 ABG pO2 ABG HCO3 ABG O2 Saturation ABG Base Excess ABG Hemoglobin VBG pH Oxyhemoglobin Sodium Potassium Chloride Carbon Dioxide BUN 6 L Creatinine < 0.2 L Glucose 154 H POC Glucose 149 H Lactic Acid Calcium Phosphorus Magnesium Iron TIBC Direct Bilirubin AST ALT Alkaline Phosphatase Total Creatine Kinase CK-MB (CK-2) C-Reactive Protein Total Protein Albumin Vitamin B12 Salicylates Acetaminophen Miscellaneous Test Crossmatch 04/14/19 04/14/19 04/14/19 12:16 17:54 23:35 WBC RBC Hgb Hct MCV MCH MCHC RDW Plt Count Roberts % (Auto) Lymph # Seg Neuts % (Manual) Lymphocytes % (Manual) Nucleated RBC % Seg Neutrophils # Man Lymphocytes # (Manual) Monocytes # (Manual) PT INR APTT D-Dimer POC ABG pH ABG pH POC ABG pCO2 POC ABG pO2 ABG pO2 ABG HCO3 ABG O2 Saturation ABG Base Excess ABG Hemoglobin VBG pH Oxyhemoglobin Sodium Potassium Chloride Carbon Dioxide BUN Creatinine Glucose POC Glucose 176 H 224 H 173 H Lactic Acid Calcium Phosphorus Magnesium Iron TIBC Direct Bilirubin AST ALT Alkaline Phosphatase Total Creatine Kinase CK-MB (CK-2) C-Reactive Protein Total Protein Albumin Vitamin B12 Salicylates Acetaminophen Miscellaneous Test Crossmatch 04/15/19 04/15/19 04/15/19 05:44 12:44 18:06 WBC RBC Hgb Hct MCV MCH MCHC RDW Plt Count [place] % (Auto) Lymph # Seg Neuts % (Manual) Lymphocytes % (Manual) Nucleated RBC % Seg Neutrophils # Man Lymphocytes # (Manual) Monocytes # (Manual) PT INR APTT D-Dimer POC ABG pH 7.461 H ABG pH POC ABG pCO2 45.5 H POC ABG pO2 ABG pO2 ABG HCO3 ABG O2 Saturation ABG Base Excess ABG Hemoglobin VBG pH Oxyhemoglobin Sodium Potassium Chloride Carbon Dioxide BUN Creatinine Glucose POC Glucose 255 H 365 H Lactic Acid Calcium Phosphorus Magnesium Iron TIBC Direct Bilirubin AST ALT Alkaline Phosphatase Total Creatine Kinase CK-MB (CK-2) C-Reactive Protein Total Protein Albumin Vitamin B12 Salicylates Acetaminophen Miscellaneous Test Crossmatch 04/15/19 04/15/19 04/16/19 18:06 23:34 00:40 WBC RBC Hgb Hct MCV MCH MCHC RDW Plt Count Roberts % (Auto) Lymph # Seg Neuts % (Manual) Lymphocytes % (Manual) Nucleated RBC % Seg Neutrophils # Man Lymphocytes # (Manual) Monocytes # (Manual) PT INR APTT D-Dimer POC ABG pH ABG pH POC ABG pCO2 POC ABG pO2 ABG pO2 ABG HCO3 ABG O2 Saturation ABG Base Excess ABG Hemoglobin VBG pH Oxyhemoglobin Sodium Potassium Chloride Carbon Dioxide BUN Creatinine Glucose POC Glucose 157 H 56 L 107 H Lactic Acid Calcium Phosphorus Magnesium Iron TIBC Direct Bilirubin AST ALT Alkaline Phosphatase Total Creatine Kinase CK-MB (CK-2) C-Reactive Protein Total Protein Albumin Vitamin B12 Salicylates Acetaminophen Miscellaneous Test Crossmatch 04/16/19 04/16/19 04/16/19 09:06 09:06 11:21 WBC 12.9 H RBC 2.95 L Hgb 9.7 L Hct 28.9 L MCV 98 H MCH 33 H MCHC RDW 17.7 H Plt Count 581 H Roberts % (Auto) Lymph # Seg Neuts % (Manual) Lymphocytes % (Manual) Nucleated RBC % Seg Neutrophils # Man Lymphocytes # (Manual) Monocytes # (Manual) PT INR APTT D-Dimer POC ABG pH ABG pH POC ABG pCO2 POC ABG pO2 ABG pO2 ABG HCO3 ABG O2 Saturation ABG Base Excess ABG Hemoglobin VBG pH Oxyhemoglobin Sodium Potassium Chloride Carbon Dioxide 31 H BUN Creatinine 0.2 L Glucose 155 H POC Glucose 184 H Lactic Acid Calcium Phosphorus Magnesium Iron TIBC Direct Bilirubin AST ALT Alkaline Phosphatase Total Creatine Kinase CK-MB (CK-2) C-Reactive Protein Total Protein Albumin Vitamin B12 Salicylates Acetaminophen Miscellaneous Test Crossmatch 04/16/19 04/16/19 04/16/19 17:28 20:17 23:09 WBC RBC Hgb Hct MCV MCH MCHC RDW Plt Count Roberts % (Auto) Lymph # Seg Neuts % (Manual) Lymphocytes % (Manual) Nucleated RBC % Seg Neutrophils # Man Lymphocytes # (Manual) Monocytes # (Manual) PT INR APTT D-Dimer POC ABG pH 7.479 H ABG pH POC ABG pCO2 POC ABG pO2 71 L ABG pO2 ABG HCO3 ABG O2 Saturation ABG Base Excess ABG Hemoglobin VBG pH Oxyhemoglobin Sodium Potassium Chloride Carbon Dioxide BUN Creatinine Glucose POC Glucose 173 H 178 H Lactic Acid Calcium Phosphorus Magnesium Iron TIBC Direct Bilirubin AST ALT Alkaline Phosphatase Total Creatine Kinase CK-MB (CK-2) C-Reactive Protein Total Protein Albumin Vitamin B12 Salicylates Acetaminophen Miscellaneous Test Crossmatch 04/17/19 04/17/19 04/17/19 05:02 11:39 12:48 WBC RBC Hgb Hct MCV MCH MCHC RDW Plt Count Roberts % (Auto) Lymph # Seg Neuts % (Manual) Lymphocytes % (Manual) Nucleated RBC % Seg Neutrophils # Man Lymphocytes # (Manual) Monocytes # (Manual) PT INR APTT D-Dimer POC ABG pH 7.557 H ABG pH POC ABG pCO2 32.8 L POC ABG pO2 149 H ABG pO2 ABG HCO3 ABG O2 Saturation ABG Base Excess ABG Hemoglobin VBG pH Oxyhemoglobin Sodium Potassium Chloride Carbon Dioxide BUN Creatinine Glucose POC Glucose 252 H 124 H Lactic Acid Calcium Phosphorus Magnesium Iron TIBC Direct Bilirubin AST ALT Alkaline Phosphatase Total Creatine Kinase CK-MB (CK-2) C-Reactive Protein Total Protein Albumin Vitamin B12 Salicylates Acetaminophen Miscellaneous Test Crossmatch 04/17/19 04/18/19 23:31 11:34 WBC RBC Hgb Hct MCV MCH MCHC RDW Plt Count [place] % (Auto) Lymph # Seg Neuts % (Manual) Lymphocytes % (Manual) Nucleated RBC % Seg Neutrophils # Man Lymphocytes # (Manual) Monocytes # (Manual) PT INR APTT D-Dimer POC ABG pH ABG pH POC ABG pCO2 POC ABG pO2 ABG pO2 ABG HCO3 ABG O2 Saturation ABG Base Excess ABG Hemoglobin VBG pH Oxyhemoglobin Sodium Potassium Chloride Carbon Dioxide BUN Creatinine Glucose POC Glucose 149 H 344 H Lactic Acid Calcium Phosphorus Magnesium Iron TIBC Direct Bilirubin AST ALT Alkaline Phosphatase Total Creatine Kinase CK-MB (CK-2) C-Reactive Protein Total Protein Albumin Vitamin B12 Salicylates Acetaminophen Miscellaneous Test Crossmatch
--- NOTE | 2019-04-18 13:35 | XRay Report ---
CHEST 1 VIEW INDICATION: trach tube position. COMPARISON: 04/17/2019 at 2:38 PM FINDINGS: Support devices: Tracheostomy tube is in satisfactory position. Heart: Within normal limits. The heart is now midline. Pulmonary vasculature: Normal. Lungs/Pleura: The left lung has reexpanded and is clear. The right lung is clear. Additional findings: None. IMPRESSION: 1. Resolution of left lung collapse. 2. No CHF or pneumonia. Signer Name: Antwon Haley MD Signed: 04/18/2019 1:31 PM Workstation Name: [id number]
--- NOTE | 2019-04-18 14:21 | Progress Note ---
Assessment and Plan Assessment and plan: Patient is a 29 year old woman with a history of diabetes was brought to the emergency room following a cardiac arrest. Her last well-known time was 10:30 in the morning, she was traveling with a friend, she was unresponsive in the back seat. EMS was called, CPR was started and continued here in the emergency room. Patient was intubated in the ER, noted hypotensive started on dobutamine, epinephrine and Levophed drip, given IV fluids, found to be in DKA with BG ~2200, several metabolic derangements - placed on insulin drip and admitted to ICU. BP improved and she was weaned off pressors. Still intubated on vent, minimal response. patient has been in coma for several days, no improvement. She has a DNR status order. Acute respiratory failure s/p intubated, on vent - s/p trach and peg - Tracheostomy re-adjusted on 04/17/19 - on vent, cont nebs, - s/p Trach POD 3 - Pulm following - Aspiration precautions - VAP bundle Acute anoxic encephalopathy, POA - from cardiac arrest for DM - Neurology following -MR concerning for anoxic Brain injury Cardiac arrest s/p resuscitation - likely 2/2 severe hyperglycemia - preserved EF on 2D echo Generalized Anasacara -Given a dose of Bumex DKA, severe - BG was >2200 on admission - s/p insulin drip. cont iv fluid - monitor BG q4h, on TF and on subqu insulin - adjust dose as needed Shock hypotensive +/- sepsis - resolved Now off pressors. Was on vasopressin, Levophed, Phenylephrine Sepsis with possible aspiration PNA - evident on CXR on admission with left sided infiltrates - cont abx per ID - Competed abx - Abx discontinued following notation that no evidence of liver lesion not consistent with infection per ID - Leucocytosis and thrombocytosis are likely reactive from hepatic subcapsular hematoma Head lice - multiple dosing of Permethin given - continue isolation Acute renal failure, likely vasomotor nephropathy - resolved - cont iv fluid, monitor BMP Anemia, acute on chronic - no sign of blood loss s/p 2 Units PRBC transfused Hyperkalemia, resolved with fluid and insulin Hypernatremia Resolved hypokalemia, resolved Shock liver with elevated LFT and Coagulopathy - due to cardiac arrest and hypotension - cont to monitor Liver lesion ID Physician following Discontinued abx, not consistent with infection as noted above Hypermagnesemia - monitor levels as needed Hyperphosphatemia -cont to monitor, improved Stage 1 sacral ulcer, poa - upper ext blisters - pressure ulcer prevention strategies VT Prophylaxis with Lovenox Poor prognosis DNR status Disposition: continue inpatient care, await placement CCT 33 minutes: The high probability of a clinically significant, sudden or life threatening deterioration of the [multiple] system(s) required my full and d irect attention, intervention and personal management. The aggregate critical care time was [31] minutes. This time is in addition to time spent performing reported procedures but includes the following: [x] Data Review and interpretation [x] Patient assessment and monitoring of vital signs [x] Docu mentation [x] Medication orders and management History Interval history: Patient was seen and examined. Follow-up on current diagnosis respiratory failure. No overnight events reported to me.. Imaging, nursing note, chart, labs and old chart reviewed. Hospitalist Physical - Physical exam Narrative exam: Gen: On full MVS and tolerating HEENT: facial edema, atraumatic. Trach bed clean with no drainage, opens eyes spontanously Neck: supple, no JVD Heart: S1 and S2 reg, Tachycardia, no murmurs, rubs or gallop Lungs: Clear to auscultation, no rhonchi, no wheeze Abd: soft, non tender, non distended, normal BS, Ext: anasarca, leg edema, no cyanosis Neuro: Minimal responsive, does not follow commands, Skin: see full skin assessment. Stage 1 sacral ulcer - Constitutional Vitals: Temp Pulse Resp BP Pulse Ox 97.7 F 103 H 10 L 103/70 99 04/18/19 12:00 04/18/19 13:00 04/18/19 13:00 04/18/19 13:00 04/18/19 13:00 General appearance: Present: other (intubated) Results - Labs CBC & Chem 7: 04/16/19 09:06 04/16/19 09:06 Labs: Laboratory Last Values WBC 12.9 K/mm3 (4.5-11.0) H 04/16/19 09:06 RBC 2.95 M/mm3 (3.65-5.03) L 04/16/19 09:06 Hgb 9.7 gm/dl (10.1-14.3) L 04/16/19 09:06 Hct 28.9 % (30.3-42.9) L 04/16/19 09:06 MCV 98 fl (79-97) H 04/16/19 09:06 MCH 33 pg (28-32) H 04/16/19 09:06 MCHC 33 % (30-34) 04/16/19 09:06 RDW 17.7 % (13.2-15.2) H 04/16/19 09:06 Plt Count 581 K/mm3 (140-440) H 04/16/19 09:06 Lymph % (Auto) 16.9 % (13.4-35.0) 04/03/19 03:40 Gibson % (Auto) 9.8 % (0.0-7.3) H 04/03/19 03:40 Eos % (Auto) 3.2 % (0.0-4.3) 04/03/19 03:40 Baso % (Auto) 0.4 % (0.0-1.8) 04/03/19 03:40 Lymph # 1.1 K/mm3 (1.2-5.4) L 04/03/19 03:40 Gibson # 0.6 K/mm3 (0.0-0.8) 04/03/19 03:40 Eos # 0.2 K/mm3 (0.0-0.4) 04/03/19 03:40 Baso # 0.0 K/mm3 (0.0-0.1) 04/03/19 03:40 Add Manual Diff Complete 04/01/19 05:01 Total Counted 100 04/01/19 05:01 Seg Neutrophils % 69.7 % (40.0-70.0) 04/03/19 03:40 Seg Neuts % (Manual) 71.0 % (40.0-70.0) H 04/01/19 05:01 0 % 04/01/19 05:01 20.0 % (13.4-35.0) 04/01/19 05:01 Reactive Lymphs % (Man) 0 % 04/01/19 05:01 7.0 % (0.0-7.3) 04/01/19 05:01 2.0 % (0.0-4.3) 04/01/19 05:01 0 % (0.0-1.8) 04/01/19 05:01 0 % 04/01/19 05:01 0 % 04/01/19 05:01 0 % 04/01/19 05:01 0 % 04/01/19 05:01 Nucleated RBC % Not Reportable 04/01/19 05:01 Seg Neutrophils # 4.4 K/mm3 (1.8-7.7) 04/03/19 03:40 Seg Neutrophils # Man 4.8 K/mm3 (1.8-7.7) 04/01/19 05:01 Band Neutrophils # 0.0 K/mm3 04/01/19 05:01 1.4 K/mm3 (1.2-5.4) 04/01/19 05:01 Abs React Lymphs (Man) 0.0 K/mm3 04/01/19 05:01 0.5 K/mm3 (0.0-0.8) 04/01/19 05:01 0.1 K/mm3 (0.0-0.4) 04/01/19 05:01 0.0 K/mm3 (0.0-0.1) 04/01/19 05:01 0.0 K/mm3 04/01/19 05:01 0.0 K/mm3 04/01/19 05:01 0.0 K/mm3 04/01/19 05:01 Blast Cells # 0.0 K/mm3 04/01/19 05:01 WBC Morphology Not Reportable 04/01/19 05:01 Hypersegmented Neuts Not Reportable 04/01/19 05:01 Hyposegmented Neuts Not Reportable 04/01/19 05:01 Hypogranular Neuts Not Reportable 04/01/19 05:01 Not Reportable 04/01/19 05:01 Not Reportable 04/01/19 05:01 Not Reportable 04/01/19 05:01 Not Reportable 04/01/19 05:01 Not Reportable 04/01/19 05:01 Not Reportable 04/01/19 05:01 Not Reportable 04/01/19 05:01 Not Reportable 04/01/19 05:01 Plt Clumps, EDTA Not Reportable 04/01/19 05:01 Not Reportable 04/01/19 05:01 Not Reportable 04/01/19 05:01 Not Reportable 04/01/19 05:01 Plt Morphology Comment Not Reportable 04/01/19 05:01 RBC Morphology Normal 04/01/19 05:01 Dimorphic RBCs Not Reportable 04/01/19 05:01 Not Reportable 04/01/19 05:01 Not Reportable 04/01/19 05:01 Not Reportable 04/01/19 05:01 Not Reportable 04/01/19 05:01 Not Reportable 04/01/19 05:01 Not Reportable 04/01/19 05:01 Not Reportable 04/01/19 05:01 Not Reportable 04/01/19 05:01 Not Reportable 04/01/19 05:01 Not Reportable 04/01/19 05:01 Not Reportable 04/01/19 05:01 Not Reportable 04/01/19 05:01 Not Reportable 04/01/19 05:01 Not Reportable 04/01/19 05:01 Not Reportable 04/01/19 05:01 Not Reportable 04/01/19 05:01 Not Reportable 04/01/19 05:01 Not Reportable 04/01/19 05:01 Not Reportable 04/01/19 05:01 Acanthocytes (Spur) Not Reportable 04/01/19 05:01 Rouleaux Not Reportable 04/01/19 05:01 Not Reportable 04/01/19 05:01 Not Reportable 04/01/19 05:01 Not Reportable 04/01/19 05:01 Not Reportable 04/01/19 05:01 Hem Pathologist Commnt No 04/01/19 05:01 PT 13.9 Sec. (12.2-14.9) 04/01/19 17:14 INR 1.10 (0.87-1.13) 04/01/19 17:14 APTT 74.5 Sec. (24.2-36.6) H* 03/29/19 19:20 313 mg/dl (211-480) 04/01/19 17:14 4526.86 ng/mlDDU (0-234) H 04/06/19 00:06 Heparin Anti-Xa, Unfract Negative (Negative) 03/31/19 15:00 POC ABG pH 7.557 (7.35-7.45) H 04/17/19 12:48 ABG pH 7.396 pH Units (7.350-7.450) 04/03/19 05:35 POC ABG pCO2 32.8 (35-45) L 04/17/19 12:48 ABG pCO2 32.2 mm Hg 04/03/19 05:35 POC ABG pO2 149 (80-105) H 04/17/19 12:48 ABG pO2 97.7 mm Hg (80.0-90.0) H 04/03/19 05:35 POC ABG HCO3 29.1 (22-26 mml/L) 04/17/19 12:48 ABG HCO3 19.3 mmol/L (20.0-26.0) L 04/03/19 05:35 POC ABG Total CO2 30 (23-27mmol/L) 04/17/19 12:48 POC ABG O2 Sat 100 04/17/19 12:48 ABG O2 Saturation 97.6 % (95.0-99.0) 04/03/19 05:35 ABG O2 Content 10.9 (0.0-44) 04/03/19 05:35 POC ABG Base Excess 7 ((-2) - (+3)mmol/L) 04/17/19 12:48 ABG Base Excess -5.0 mmol/L (-2.0-3.0) L 04/03/19 05:35 ABG Hemoglobin 8.0 gm/dl (12.0-16.0) L 04/03/19 05:35 ABG Carboxyhemoglobin 2.1 % (0.0-5.0) 04/03/19 05:35 ABG Methemoglobin 0.5 % (0.0-1.5) 04/03/19 05:35 VBG pH 6.800 (7.320-7.420) L* 03/29/19 19:47 95.1 % (95.0-99.0) 04/03/19 05:35 100 % 04/17/19 12:48 Sodium 137 mmol/L (137-145) 04/16/19 09:06 Potassium 4.7 mmol/L (3.6-5.0) 04/16/19 09:06 Chloride 98.1 mmol/L (98-107) 04/16/19 09:06 Carbon Dioxide 31 mmol/L (22-30) H 04/16/19 09:06 13 mmol/L 04/16/19 09:06 BUN 10 mg/dL (7-17) 04/16/19 09:06 0.2 mg/dL (0.7-1.2) L 04/16/19 09:06 Estimated GFR > 60 ml/min 04/16/19 09:06 50 % 04/16/19 09:06 Glucose 155 mg/dL (65-100) H 04/16/19 09:06 POC Glucose 344 (70-105) H 04/18/19 11:34 Lactic Acid 3.30 mmol/L (0.7-2.0) H* 03/31/19 07:50 Calcium 8.9 mg/dL (8.4-10.2) 04/16/19 09:06 Phosphorus 4.10 mg/dL (2.5-4.5) 04/09/19 16:25 Magnesium 1.80 mg/dL (1.7-2.3) 04/09/19 16:25 Iron 26 ug/dL (37-170) L 03/31/19 08:20 TIBC 193 mcg/dL (250-450) L 03/31/19 08:20 0.60 mg/dL (0.1-1.2) 04/03/19 03:40 0.2 mg/dL (0-0.2) 04/02/19 07:48 0.5 mg/dL 04/02/19 07:48 AST 594 units/L (5-40) H 04/03/19 03:40 ALT 861 units/L (7-56) H 04/03/19 03:40 299 units/L (35-129) H 04/03/19 03:40 2465 units/L (30-135) H 03/30/19 05:26 CK-MB (CK-2) 52.7 ng/mL (0.0-4.0) H 03/30/19 05:26 CK-MB (CK-2) Rel Index 2.1 (0-4) 03/30/19 05:26 < 0.010 ng/mL (0.00-0.029) 04/06/19 05:20 2.40 mg/dL (0.00-1.30) H 03/30/19 12:57 4.4 g/dL (6.3-8.2) L 04/03/19 03:40 2.1 g/dL (3.9-5) L 04/03/19 03:40 0.9 % 04/03/19 03:40 See scanned result 03/31/19 15:00 Vitamin B12 > 2000 pg/mL (211-911) H 03/31/19 08:20 > 20 ng/mL (7.3-26.0) 03/31/19 08:20 HCG, Qual Negative (Negative) 03/29/19 19:20 Yellow (Yellow) 03/29/19 23:10 Slightly-cloudy (Clear) 03/29/19 23:10 6.0 (5.0-7.0) 03/29/19 23:10 Ur Specific [place] 1.021 (1.003-1.030) 03/29/19 23:10 100 mg/dl mg/dL (Negative) 03/29/19 23:10 >=500 mg/dL (Negative) 03/29/19 23:10 20 mg/dL (Negative) 03/29/19 23:10 Lg (Negative) 03/29/19 23:10 Neg (Negative) 03/29/19 23:10 Neg (Negative) 03/29/19 23:10 < 2.0 mg/dL (<2.0) 03/29/19 23:10 Ur Leukocyte Esterase Neg (Negative) 03/29/19 23:10 1.0 /HPF (0.0-6.0) 03/29/19 23:10 1.0 /HPF (0.0-6.0) 03/29/19 23:10 Few /HPF 03/29/19 23:10 Salicylates 0.8 mg/dL (2.8-20.0) L 03/30/19 Unknown Presumptive negative 03/29/19 23:10 Presumptive negative 03/29/19 23:10 Acetaminophen < 5.0 ug/mL (10.0-30.0) L 03/30/19 Unknown Ur Barbiturates Screen Presumptive negative 03/29/19 23:10 Ur Phencyclidine Scrn Presumptive negative 03/29/19 23:10 Ur Amphetamines Screen Presumptive negative 03/29/19 23:10 U Benzodiazepines Scrn Presumptive negative 03/29/19 23:10 Presumptive negative 03/29/19 23:10 U Marijuana (THC) Screen Presumptive negative 03/29/19 23:10 Disclamer 03/29/19 23:10 Heparin-induced Plt Ab Negative (Negative) 03/31/19 15:00 UF Heparin High Dose 0 % Release 03/31/19 15:00 FABIAN UFH Low Dose 0.1 0 % Release 03/31/19 15:00 FABIAN UFH Low Dose 0.5 0 % Release 03/31/19 15:00 Hepatitis A IgM Ab Non-reactive (NonReactive) 03/30/19 Unknown Hep Bs Antigen Non-reactive (Negative) 03/30/19 Unknown Hep B Core IgM Ab Non-reactive (NonReactive) 03/30/19 Unknown Non-reactive (NonReactive) 03/30/19 Unknown Flexitest 1 H 03/30/19 14:00 Blood Type O POSITIVE 03/30/19 03:30 Antibody Screen Negative 03/30/19 03:30 Crossmatch See Detail 03/30/19 03:30 Active Medications - Current Medications Current Medications: Generic Name Dose Route Start Last Admin Trade Name Freq PRN Reason Stop Dose Admin Acetaminophen 650 mg 03/29/19 23:34 04/01/19 23:38 Tylenol PO 650 mg Q4H PRN Administration Pain MILD(1-3)/Fever >100.5/WARE Lipase/Protease/Amylase 1 each 04/02/19 11:44 Pancreaze 10,500 Unit FEEDTUBE PRN PRN For Clogged Feeding Tube Dextrose 0 ml 03/29/19 20:33 04/15/19 23:36 D50w (25gm) Syringe IV 20 ml PRN PRN Administration Hypoglycemia Enoxaparin Sodium 40 mg 04/14/19 10:00 04/18/19 11:27 Lovenox SUB-Q 40 mg QDAY@1000 ZAMZAM Administration Famotidine 20 mg 04/02/19 10:00 04/18/19 11:27 Pepcid PO 20 mg BID ZAMZAM Administration Fentanyl 50 mcg 04/05/19 11:00 04/17/19 05:18 Sublimaze IV 50 mcg Q2H PRN Administration Pain , Severe (7-10)/AGITATION Fentanyl 25 mcg 04/14/19 14:00 04/17/19 14:10 Duragesic TD 25 mcg Q3D ZAMZAM Administration Hydrophilic Ointment 1 applic 03/30/19 11:24 Vaseline Lip Therapy TP Q2HR PRN Dry Lips Insulin Glargine 20 units 04/09/19 22:00 04/17/19 21:44 Lantus SUB-Q 20 units QHS ZAMZAM Administration Insulin Human Regular 0 units 04/09/19 12:00 04/18/19 11:40 Humulin R SUB-Q 6 units Q6HR ZAMZAM Administration Protocol Levetiracetam 500 mg 04/03/19 10:00 04/18/19 11:27 Keppra PO 500 mg BID ZAMZAM Administration Metoprolol Tartrate 5 mg 04/14/19 13:06 04/17/19 19:44 Lopressor IV 5 mg Q6HR PRN Administration Tachyarrhythmias Metoprolol Tartrate 25 mg 04/16/19 10:00 04/18/19 11:28 Lopressor PO 25 mg BID ZAMZAM Administration Multi-Ingred Cream/Lotion/Oil/Oint 1 applic 03/30/19 11:24 04/06/19 11:39 Artificial Tears Ophth Oint OU 1 applic Q4HR PRN Administration Dry Eye(s) Ondansetron HCl 4 mg 03/29/19 23:34 Zofran IV Q8H PRN Nausea And Vomiting Scopolamine 1 each 04/17/19 12:00 04/17/19 12:48 Transderm-Scop TD 1 each Q3D ZAMZAM Administration Simple Syrup 15 ml 04/02/19 11:44 04/14/19 01:53 Simple Syrup FEEDTUBE 15 ml PRN PRN Administration Hypoglycemia Simple Syrup 30 ml 04/02/19 11:44 Simple Syrup FEEDTUBE PRN PRN Hypoglycemia Sodium Bicarbonate 325 mg 04/02/19 11:44 Sodium Bicarbonate FEEDTUBE PRN PRN For Clogged Feeding Tube Sodium Chloride 10 ml 03/30/19 10:00 04/18/19 11:28 Sodium Chloride Flush Syringe 10 Ml IV 10 ml BID ZAMZAM Administration Sodium Chloride 10 ml 03/29/19 23:34 Sodium Chloride Flush Syringe 10 Ml IV PRN PRN LINE FLUSH Nutrition/Malnutrition Assess - Dietary Evaluation Nutrition/Malnutrition Findings: Nutrition Notes Start: 03/30/19 13:14 Freq: Status: Active Protocol: Document 04/18/19 10:55 LM (Rec: 04/18/19 11:07 LM [id number]) Nutrition Notes Initial or Follow up Reassessment Current Diagnosis Acute Kidney Injury,Diabetes, Sepsis,Respiratory Failure Other Pertinent Diagnosis s/p trach & PEG, s/p cardiac arrest, DKA, ARF, Shock liver Current Diet Glucerna 1.2 at 50 ml/hr Labs/Tests POC glu 149 Pertinent Medications Reviewed Height 5 ft Weight 42.5 kg [place] Body Weight (kg) 45.45 BMI 18.3 Subjective/Other Information Glucerna running at 50 ml/hr via PEG. Per RN pt is tolerating TF. Percent of energy/protein needs met: 97%/100% Burn Absent Trauma Absent #1 Nutrition Diagnosis Inadequate oral intake Diagnosis Progress(for reassessment Continues documentation) Is patient on ventilator? Yes Is Patient Ambulatory and/or Out of Bed No [facility] 1276.272 Kcal/Kg value to use for calculation 35 Approximate Energy Requirements Using 1488 kcal/Kg Calculation [facility] Additional Notes Protein: 1.2-2g/k-86g/day Fluids: 1ml/kcal Nutrition Intervention Change Diet Order: Continue TF Nutrition Support: Glucerna 1.2 at 50ml/hr with 80ml water flush q4h. Kcal 1,440 Protein (gm) 72 Fluid (mL) 966 Goal #1 Meet at least 75% of energy and protein needs Follow-Up By: 04/25/19 Additional Comments F/U for TF tolerance/rate
[2019-04-18] MEDS: METOPROLOL IV PRN (18:42)
[2019-04-18] MEDS: LANTUS SUB-Q SCH (21:14)
[2019-04-19] MEDS: SUBLIMAZE IV PRN (02:13)
[2019-04-19] MEDS: HumuLIN R SUB-Q SCH ×3 (06:25→18:11)
[2019-04-19] MEDS: PEPCID PO SCH ×2 (10:05→21:02)
[2019-04-19] MEDS: METOPROLOL PO SCH ×2 (10:05→21:02)
[2019-04-19] MEDS: KEPPRA PO SCH ×2 (10:05→21:02)
[2019-04-19] MEDS: SODIUM CHLORIDE FLUSH SYRINGE 10 ML IV SCH ×2 (10:07→21:03)
[2019-04-19] MEDS: ENOXAPARIN SUB-Q SCH (10:07)
--- NOTE | 2019-04-19 11:33 | Progress Note ---
Assessment and Plan Acute toxic metabolic encephalopathy. Diabetic ketoacidosis. Severe sepsis with shock. Possible aspiration pneumonia. History of polysubstance abuse. Leukocytosis. Elevated serum transaminases, possible shock liver. Hyponatremia related to her severe hyperglycemia. Anemia that is macrocytic. History of seizure disorder. Severe metabolic acidosis. 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 - continue bronchodilators with pulmonary hygiene per RT - VAP bundle addressed - continue to wean supplemental O2 to keep O2 sats > 90% - VTE prophylaxis with lovenox - Stress ulcer prophylaxis - continue accuchecks with glycemic control per SSI for target blood glucose 140-180 mg/dL - continue empiric antibiotics; de-escalate per ID rec's and based on clinical and microbiologic data - sedation target of RASS 0 to -1 - continue Keppra for seizures - continue mobility protocols / off loading for pressure ulcer prevention - Critical care bundles addressed - continue Seizure precautions - fall precautions - neuro-checks per RN - continue other care per attending / other consultants CONDITION: CRITICAL PROGNOSIS: GUARDED TO GRAVE CODE STATUS: FULL CODE The high probability of a clinically significant, sudden or life threatening deterioration of the [Neurology Respiratory, Cardiovascular] system(s) required my full and direct attention, intervention and personal management. The aggregate critical care time was [31] minutes. This time is in addition to time spent performing reported procedures but includes the following: [x] Data Review and interpretation [x] Patient assessment and monitoring of vital signs [x] Documentation [x] Medication orders and management Subjective Date of service: 04/19/19 Principal diagnosis: Ac Hypoxemic Resp Failure; DKA; Severe sepsis with shock; ANGELICA Interval history: Patient is seen today for: Acute Hypoxemic Resp Failure; Ac toxic metabolic encephalopathy; DKA; Severe sepsis with shock; Possible aspiration pneumonia; History of polysubstance abuse; History of seizure disorder; Acute kidney injury, possibly on chronic Seen and examined at bedside; 24hour events reviewed; nursing and respiratory care staff consulted; no adverse overnight events reported to me; resting peacefully in bed; on T-piece and tolerating well so far; rested on MVS overnight; AMS is persistent Objective Vital Signs - 12hr 04/19/19 04/19/19 04/19/19 00:00 01:00 02:00 Temperature 99.6 F Pulse Rate 112 H 115 H 122 H Pulse Rate [ 110 H From Monitor] Respiratory 26 H 10 L 12 Rate Blood Pressure 106/76 111/78 114/80 O2 Sat by Pulse 98 98 95 Oximetry O2 Sat by Pulse Oximetry [ Assessment] 04/19/19 04/19/19 04/19/19 02:13 03:01 04:00 Temperature 98.9 F Pulse Rate 103 H 112 H Pulse Rate [ 112 H From Monitor] Respiratory 16 20 22 Rate Blood Pressure 114/80 114/77 O2 Sat by Pulse 93 95 Oximetry O2 Sat by Pulse Oximetry [ Assessment] 04/19/19 04/19/19 04/19/19 04:18 04:32 05:00 Temperature Pulse Rate 110 H 109 H Pulse Rate [ From Monitor] Respiratory 10 L Rate Blood Pressure 114/77 106/73 O2 Sat by Pulse 96 98 Oximetry O2 Sat by Pulse 97 Oximetry [ Assessment] 04/19/19 04/19/19 04/19/19 06:00 07:00 07:22 Temperature Pulse Rate 109 H 113 H 112 H Pulse Rate [ From Monitor] Respiratory 10 L 10 L Rate Blood Pressure 109/75 112/75 112/75 O2 Sat by Pulse 96 97 94 Oximetry O2 Sat by Pulse Oximetry [ Assessment] 04/19/19 04/19/19 04/19/19 07:33 08:00 10:05 Temperature Pulse Rate 121 H 120 H Pulse Rate [ 121 H From Monitor] Respiratory 26 H Rate Blood Pressure 112/69 107/68 O2 Sat by Pulse 95 93 Oximetry O2 Sat by Pulse 98 Oximetry [ Assessment] Constitutional: no acute distress, other (young CF normocephalic and atraumatic on MVS) Eyes: non-icteric ENT: oropharynx moist, other (s/p tracheostomy) Neck: supple, no lymphadenopathy, no JVD Effort: mildly labored Ascultation: Bilateral: diminished breath sounds, rhonchi Percussion: Bilateral: not dull Cardiovascular: regular rate and rhythm, other (sinus tachycardia) Gastrointestinal: hypoactive bowel sounds, soft, non-tender, non-distended Integumentary: erythema (noted on upper extremity) Extremities: no cyanosis, pink and warm, pulses normal, no ischemia or petechiae, edema (trace to 1+) Neurologic: unable to assess (remains unresponsive, opens eyes on suctioning, not obeying commands) Psychiatric: other (unable to assess) CBC and BMP: 04/16/19 09:06 04/16/19 09:06 ABG, PT/INR, D-dimer: ABG POC ABG pH 7.565 (7.35-7.45) H 04/19/19 04:35 ABG pH 7.396 pH Units (7.350-7.450) 04/03/19 05:35 POC ABG pCO2 36.2 (35-45) 04/19/19 04:35 ABG pCO2 32.2 mm Hg 04/03/19 05:35 POC ABG pO2 88 (80-105) 04/19/19 04:35 ABG pO2 97.7 mm Hg (80.0-90.0) H 04/03/19 05:35 POC ABG HCO3 32.8 (22-26 mml/L) 04/19/19 04:35 POC ABG Total CO2 34 (23-27mmol/L) 04/19/19 04:35 POC ABG O2 Sat 98 04/19/19 04:35 ABG O2 Saturation 97.6 % (95.0-99.0) 04/03/19 05:35 PT/INR, D-dimer PT 13.9 Sec. (12.2-14.9) 04/01/19 17:14 INR 1.10 (0.87-1.13) 04/01/19 17:14 4526.86 ng/mlDDU (0-234) H 04/06/19 00:06 Abnormal lab findings: Abnormal Labs 03/29/19 03/29/19 03/29/19 19:11 19:20 19:20 WBC 26.7 H RBC 2.52 L Hgb 8.1 L Hct MCV 148 H MCH MCHC 22 L RDW 18.5 H Plt Count [place] % (Auto) Lymph # Seg Neuts % (Manual) 82.0 H Lymphocytes % (Manual) 7.0 L Nucleated RBC % Seg Neutrophils # Man 21.9 H Lymphocytes # (Manual) Monocytes # (Manual) 1.9 H PT 21.8 H INR 1.95 H APTT 74.5 H* D-Dimer POC ABG pH ABG pH POC ABG pCO2 POC ABG pO2 ABG pO2 ABG HCO3 ABG O2 Saturation ABG Base Excess ABG Hemoglobin VBG pH Oxyhemoglobin Sodium Potassium Chloride Carbon Dioxide BUN Creatinine Glucose POC Glucose > 500 H Lactic Acid Calcium Phosphorus Magnesium Iron TIBC Direct Bilirubin AST ALT Alkaline Phosphatase Total Creatine Kinase CK-MB (CK-2) C-Reactive Protein Total Protein Albumin Vitamin B12 Salicylates Acetaminophen Miscellaneous Test Crossmatch 03/29/19 03/29/19 03/29/19 19:20 19:47 20:59 WBC RBC Hgb Hct MCV MCH MCHC RDW Plt Count [place] % (Auto) Lymph # Seg Neuts % (Manual) Lymphocytes % (Manual) Nucleated RBC % Seg Neutrophils # Man Lymphocytes # (Manual) Monocytes # (Manual) PT INR APTT D-Dimer POC ABG pH 6.892 L ABG pH POC ABG pCO2 POC ABG pO2 236 H ABG pO2 ABG HCO3 ABG O2 Saturation ABG Base Excess ABG Hemoglobin VBG pH 6.800 L* Oxyhemoglobin Sodium 118 L* Potassium 9.0 H* Chloride 64.5 L Carbon Dioxide 7 L* BUN 53 H Creatinine 2.1 H Glucose 2196 H* POC Glucose Lactic Acid Calcium 12.4 H* Phosphorus Magnesium Iron TIBC Direct Bilirubin AST 3900 H ALT 1034 H Alkaline Phosphatase 316 H Total Creatine Kinase CK-MB (CK-2) C-Reactive Protein Total Protein 5.1 L Albumin 2.8 L Vitamin B12 Salicylates Acetaminophen Miscellaneous Test Crossmatch 03/29/19 03/29/19 03/29/19 22:45 22:45 22:45 WBC RBC Hgb Hct MCV MCH MCHC RDW Plt Count [place] % (Auto) Lymph # Seg Neuts % (Manual) Lymphocytes % (Manual) Nucleated RBC % Seg Neutrophils # Man Lymphocytes # (Manual) Monocytes # (Manual) PT INR APTT D-Dimer POC ABG pH ABG pH POC ABG pCO2 POC ABG pO2 ABG pO2 ABG HCO3 ABG O2 Saturation ABG Base Excess ABG Hemoglobin VBG pH Oxyhemoglobin Sodium 132 L D Potassium 7.0 H* Chloride 84.3 L Carbon Dioxide 3 L* BUN 48 H Creatinine 1.8 H Glucose 1779 H* POC Glucose Lactic Acid Calcium Phosphorus 21.70 H Magnesium 4.70 H Iron TIBC Direct Bilirubin AST ALT Alkaline Phosphatase Total Creatine Kinase 363 H CK-MB (CK-2) C-Reactive Protein Total Protein Albumin Vitamin B12 Salicylates Acetaminophen Miscellaneous Test Crossmatch 03/29/19 03/29/19 03/30/19 Unknown Unknown 00:11 WBC RBC Hgb Hct MCV MCH MCHC RDW Plt Count [place] % (Auto) Lymph # Seg Neuts % (Manual) Lymphocytes % (Manual) Nucleated RBC % Seg Neutrophils # Man Lymphocytes # (Manual) Monocytes # (Manual) PT INR APTT D-Dimer POC ABG pH ABG pH POC ABG pCO2 POC ABG pO2 ABG pO2 ABG HCO3 ABG O2 Saturation ABG Base Excess ABG Hemoglobin VBG pH Oxyhemoglobin Sodium 122 L Potassium 7.9 H* 6.4 H* Chloride 75.3 L 89.7 L Carbon Dioxide 3 L* 12 L D BUN 52 H 46 H Creatinine 2.0 H 1.7 H Glucose 2043 H* 1591 H* POC Glucose Lactic Acid Calcium 7.8 L Phosphorus 19.30 H Magnesium 3.90 H Iron TIBC Direct Bilirubin AST ALT Alkaline Phosphatase Total Creatine Kinase CK-MB (CK-2) C-Reactive Protein Total Protein Albumin Vitamin B12 Salicylates Acetaminophen Miscellaneous Test Crossmatch 03/30/19 03/30/19 03/30/19 00:11 02:14 02:14 WBC RBC Hgb Hct MCV MCH MCHC RDW Plt Count [place] % (Auto) Lymph # Seg Neuts % (Manual) Lymphocytes % (Manual) Nucleated RBC % Seg Neutrophils # Man Lymphocytes # (Manual) Monocytes # (Manual) PT INR APTT D-Dimer POC ABG pH ABG pH POC ABG pCO2 POC ABG pO2 ABG pO2 ABG HCO3 ABG O2 Saturation ABG Base Excess ABG Hemoglobin VBG pH Oxyhemoglobin Sodium Potassium Chloride Carbon Dioxide 9 L* BUN 45 H Creatinine 1.7 H Glucose 1155 H* POC Glucose Lactic Acid Calcium 7.9 L Phosphorus 10.90 H D 5.30 H D Magnesium 3.10 H 2.90 H Iron TIBC Direct Bilirubin AST ALT Alkaline Phosphatase Total Creatine Kinase CK-MB (CK-2) C-Reactive Protein Total Protein Albumin Vitamin B12 Salicylates Acetaminophen Miscellaneous Test Crossmatch 03/30/19 03/30/19 03/30/19 03:15 03:30 04:23 WBC 18.0 H RBC 2.31 L Hgb 7.3 L Hct 23.8 L D MCV 103 H MCH MCHC RDW 17.1 H Plt Count [place] % (Auto) Lymph # Seg Neuts % (Manual) 79.0 H Lymphocytes % (Manual) Nucleated RBC % Seg Neutrophils # Man 14.2 H Lymphocytes # (Manual) Monocytes # (Manual) PT INR APTT D-Dimer POC ABG pH 7.251 L ABG pH POC ABG pCO2 POC ABG pO2 156 H ABG pO2 ABG HCO3 ABG O2 Saturation ABG Base Excess ABG Hemoglobin VBG pH Oxyhemoglobin Sodium Potassium Chloride Carbon Dioxide BUN Creatinine Glucose POC Glucose Lactic Acid Calcium Phosphorus Magnesium Iron TIBC Direct Bilirubin AST ALT Alkaline Phosphatase Total Creatine Kinase CK-MB (CK-2) C-Reactive Protein Total Protein Albumin Vitamin B12 Salicylates Acetaminophen Miscellaneous Test Crossmatch See Detail 03/30/19 03/30/19 03/30/19 05:26 05:26 10:38 WBC RBC Hgb Hct MCV MCH MCHC RDW Plt Count [place] % (Auto) Lymph # Seg Neuts % (Manual) Lymphocytes % (Manual) Nucleated RBC % Seg Neutrophils # Man Lymphocytes # (Manual) Monocytes # (Manual) PT INR APTT D-Dimer POC ABG pH ABG pH POC ABG pCO2 POC ABG pO2 ABG pO2 ABG HCO3 ABG O2 Saturation ABG Base Excess ABG Hemoglobin VBG pH Oxyhemoglobin Sodium 158 H D Potassium 3.5 L Chloride 109.3 H Carbon Dioxide 19 L D BUN 40 H Creatinine 1.5 H Glucose 760 H* POC Glucose 380 H Lactic Acid Calcium 7.3 L Phosphorus Magnesium 2.60 H Iron TIBC Direct Bilirubin AST 90132 H ALT 2156 H Alkaline Phosphatase 271 H Total Creatine Kinase 2465 H CK-MB (CK-2) 52.7 H C-Reactive Protein Total Protein 4.5 L Albumin 2.4 L Vitamin B12 Salicylates Acetaminophen Miscellaneous Test Crossmatch 03/30/19 03/30/19 03/30/19 11:08 12:25 12:57 WBC RBC Hgb Hct MCV MCH MCHC RDW Plt Count [place] % (Auto) Lymph # Seg Neuts % (Manual) Lymphocytes % (Manual) Nucleated RBC % Seg Neutrophils # Man Lymphocytes # (Manual) Monocytes # (Manual) PT INR APTT D-Dimer POC ABG pH ABG pH POC ABG pCO2 POC ABG pO2 ABG pO2 ABG HCO3 ABG O2 Saturation ABG Base Excess ABG Hemoglobin VBG pH Oxyhemoglobin Sodium 156 H Potassium 3.2 L Chloride 116.4 H Carbon Dioxide 21 L BUN 37 H Creatinine Glucose 162 H POC Glucose 263 H 196 H Lactic Acid Calcium 7.2 L Phosphorus Magnesium Iron TIBC Direct Bilirubin AST ALT Alkaline Phosphatase Total Creatine Kinase CK-MB (CK-2) C-Reactive Protein Total Protein Albumin Vitamin B12 Salicylates Acetaminophen Miscellaneous Test Crossmatch 03/30/19 03/30/19 03/30/19 12:57 12:57 12:57 WBC RBC Hgb Hct MCV MCH MCHC RDW Plt Count [place] % (Auto) Lymph # Seg Neuts % (Manual) Lymphocytes % (Manual) Nucleated RBC % Seg Neutrophils # Man Lymphocytes # (Manual) Monocytes # (Manual) PT 21.0 H INR 1.86 H APTT D-Dimer POC ABG pH ABG pH POC ABG pCO2 POC ABG pO2 ABG pO2 ABG HCO3 ABG O2 Saturation ABG Base Excess ABG Hemoglobin VBG pH Oxyhemoglobin Sodium Potassium Chloride Carbon Dioxide BUN Creatinine Glucose POC Glucose Lactic Acid 9.00 H* Calcium Phosphorus Magnesium Iron TIBC Direct Bilirubin AST ALT Alkaline Phosphatase Total Creatine Kinase CK-MB (CK-2) C-Reactive Protein 2.40 H Total Protein Albumin Vitamin B12 Salicylates Acetaminophen Miscellaneous Test Crossmatch 03/30/19 03/30/19 03/30/19 13:23 14:00 14:47 WBC RBC Hgb Hct MCV MCH MCHC RDW Plt Count [place] % (Auto) Lymph # Seg Neuts % (Manual) Lymphocytes % (Manual) Nucleated RBC % Seg Neutrophils # Man Lymphocytes # (Manual) Monocytes # (Manual) PT INR APTT D-Dimer POC ABG pH ABG pH POC ABG pCO2 POC ABG pO2 ABG pO2 ABG HCO3 ABG O2 Saturation ABG Base Excess ABG Hemoglobin VBG pH Oxyhemoglobin Sodium Potassium Chloride Carbon Dioxide BUN Creatinine Glucose POC Glucose 176 H 245 H Lactic Acid Calcium Phosphorus Magnesium Iron TIBC Direct Bilirubin AST ALT Alkaline Phosphatase Total Creatine Kinase CK-MB (CK-2) C-Reactive Protein Total Protein Albumin Vitamin B12 Salicylates Acetaminophen Miscellaneous Test Flexitest 1 H Crossmatch 03/30/19 03/30/19 03/30/19 16:11 17:11 17:46 WBC RBC Hgb Hct MCV MCH MCHC RDW Plt Count [place] % (Auto) Lymph # Seg Neuts % (Manual) Lymphocytes % (Manual) Nucleated RBC % Seg Neutrophils # Man Lymphocytes # (Manual) Monocytes # (Manual) PT INR APTT D-Dimer POC ABG pH ABG pH POC ABG pCO2 POC ABG pO2 ABG pO2 ABG HCO3 ABG O2 Saturation ABG Base Excess ABG Hemoglobin VBG pH Oxyhemoglobin Sodium Potassium Chloride Carbon Dioxide BUN Creatinine Glucose POC Glucose 181 H 167 H 125 H Lactic Acid Calcium Phosphorus Magnesium Iron TIBC Direct Bilirubin AST ALT Alkaline Phosphatase Total Creatine Kinase CK-MB (CK-2) C-Reactive Protein Total Protein Albumin Vitamin B12 Salicylates Acetaminophen Miscellaneous Test Crossmatch 03/30/19 03/30/19 03/30/19 18:59 21:31 22:19 WBC RBC Hgb Hct MCV MCH MCHC RDW Plt Count [place] % (Auto) Lymph # Seg Neuts % (Manual) Lymphocytes % (Manual) Nucleated RBC % Seg Neutrophils # Man Lymphocytes # (Manual) Monocytes # (Manual) PT INR APTT D-Dimer POC ABG pH ABG pH POC ABG pCO2 POC ABG pO2 ABG pO2 ABG HCO3 ABG O2 Saturation ABG Base Excess ABG Hemoglobin VBG pH Oxyhemoglobin Sodium Potassium Chloride Carbon Dioxide BUN Creatinine Glucose POC Glucose 140 H 166 H 115 H Lactic Acid Calcium Phosphorus Magnesium Iron TIBC Direct Bilirubin AST ALT Alkaline Phosphatase Total Creatine Kinase CK-MB (CK-2) C-Reactive Protein Total Protein Albumin Vitamin B12 Salicylates Acetaminophen Miscellaneous Test Crossmatch 03/30/19 03/30/19 03/30/19 23:13 Unknown Unknown WBC RBC Hgb Hct MCV MCH MCHC RDW Plt Count [place] % (Auto) Lymph # Seg Neuts % (Manual) Lymphocytes % (Manual) Nucleated RBC % Seg Neutrophils # Man Lymphocytes # (Manual) Monocytes # (Manual) PT INR APTT D-Dimer POC ABG pH ABG pH POC ABG pCO2 POC ABG pO2 ABG pO2 47.8 L ABG HCO3 18.8 L ABG O2 Saturation 83.8 L ABG Base Excess -5.4 L ABG Hemoglobin 6.8 L VBG pH Oxyhemoglobin 81.8 L Sodium 157 H Potassium 3.3 L Chloride 117.9 H Carbon Dioxide 20 L BUN 36 H Creatinine Glucose 150 H POC Glucose 112 H Lactic Acid Calcium 7.2 L Phosphorus Magnesium Iron TIBC Direct Bilirubin AST ALT Alkaline Phosphatase Total Creatine Kinase CK-MB (CK-2) C-Reactive Protein Total Protein Albumin Vitamin B12 Salicylates Acetaminophen Miscellaneous Test Crossmatch 03/30/19 03/30/19 03/31/19 Unknown Unknown 00:03 WBC RBC Hgb Hct MCV MCH MCHC RDW Plt Count [place] % (Auto) Lymph # Seg Neuts % (Manual) Lymphocytes % (Manual) Nucleated RBC % Seg Neutrophils # Man Lymphocytes # (Manual) Monocytes # (Manual) PT INR APTT D-Dimer POC ABG pH ABG pH POC ABG pCO2 POC ABG pO2 ABG pO2 ABG HCO3 ABG O2 Saturation ABG Base Excess ABG Hemoglobin VBG pH Oxyhemoglobin Sodium Potassium Chloride Carbon Dioxide BUN Creatinine Glucose POC Glucose 188 H Lactic Acid Calcium Phosphorus Magnesium Iron TIBC Direct Bilirubin AST ALT Alkaline Phosphatase Total Creatine Kinase CK-MB (CK-2) C-Reactive Protein Total Protein Albumin Vitamin B12 Salicylates 0.8 L Acetaminophen < 5.0 L Miscellaneous Test Crossmatch 03/31/19 03/31/19 03/31/19 01:18 03:07 03:50 WBC RBC Hgb Hct MCV MCH MCHC RDW Plt Count [place] % (Auto) Lymph # Seg Neuts % (Manual) Lymphocytes % (Manual) Nucleated RBC % Seg Neutrophils # Man Lymphocytes # (Manual) Monocytes # (Manual) PT INR APTT D-Dimer POC ABG pH ABG pH 7.525 H POC ABG pCO2 POC ABG pO2 ABG pO2 178.0 H ABG HCO3 19.5 L ABG O2 Saturation 99.2 H ABG Base Excess -3.1 L ABG Hemoglobin 5.8 L VBG pH Oxyhemoglobin Sodium Potassium Chloride Carbon Dioxide BUN Creatinine Glucose POC Glucose 114 H 107 H Lactic Acid Calcium Phosphorus Magnesium Iron TIBC Direct Bilirubin AST ALT Alkaline Phosphatase Total Creatine Kinase CK-MB (CK-2) C-Reactive Protein Total Protein Albumin Vitamin B12 Salicylates Acetaminophen Miscellaneous Test Crossmatch 03/31/19 03/31/19 03/31/19 03:51 03:51 04:05 WBC RBC 1.89 L Hgb 6.1 L Hct 18.2 L* MCV MCH MCHC RDW 17.7 H Plt Count 89 L [place] % (Auto) Lymph # Seg Neuts % (Manual) 86.0 H Lymphocytes % (Manual) 10.0 L Nucleated RBC % 1.0 H Seg Neutrophils # Man Lymphocytes # (Manual) 0.7 L Monocytes # (Manual) PT INR APTT D-Dimer POC ABG pH ABG pH POC ABG pCO2 POC ABG pO2 ABG pO2 ABG HCO3 ABG O2 Saturation ABG Base Excess ABG Hemoglobin VBG pH Oxyhemoglobin Sodium 151 H Potassium 3.2 L Chloride 119.4 H Carbon Dioxide 17 L BUN 35 H Creatinine Glucose 139 H POC Glucose 153 H Lactic Acid Calcium 7.1 L Phosphorus Magnesium Iron TIBC Direct Bilirubin AST ALT Alkaline Phosphatase Total Creatine Kinase CK-MB (CK-2) C-Reactive Protein Total Protein Albumin Vitamin B12 Salicylates Acetaminophen Miscellaneous Test Crossmatch 03/31/19 03/31/19 03/31/19 05:05 05:35 06:23 WBC RBC Hgb Hct MCV MCH MCHC RDW Plt Count [place] % (Auto) Lymph # Seg Neuts % (Manual) Lymphocytes % (Manual) Nucleated RBC % Seg Neutrophils # Man Lymphocytes # (Manual) Monocytes # (Manual) PT INR APTT D-Dimer POC ABG pH ABG pH POC ABG pCO2 POC ABG pO2 ABG pO2 ABG HCO3 ABG O2 Saturation ABG Base Excess ABG Hemoglobin VBG pH Oxyhemoglobin Sodium Potassium Chloride Carbon Dioxide BUN Creatinine Glucose POC Glucose 176 H 133 H Lactic Acid 3.20 H* Calcium Phosphorus Magnesium Iron TIBC Direct Bilirubin AST ALT Alkaline Phosphatase Total Creatine Kinase CK-MB (CK-2) C-Reactive Protein Total Protein Albumin Vitamin B12 Salicylates Acetaminophen Miscellaneous Test Crossmatch 03/31/19 03/31/19 03/31/19 07:50 07:51 08:20 WBC RBC Hgb Hct MCV MCH MCHC RDW Plt Count [place] % (Auto) Lymph # Seg Neuts % (Manual) Lymphocytes % (Manual) Nucleated RBC % Seg Neutrophils # Man Lymphocytes # (Manual) Monocytes # (Manual) PT INR APTT D-Dimer POC ABG pH ABG pH POC ABG pCO2 POC ABG pO2 ABG pO2 ABG HCO3 ABG O2 Saturation ABG Base Excess ABG Hemoglobin VBG pH Oxyhemoglobin Sodium Potassium Chloride Carbon Dioxide BUN Creatinine Glucose POC Glucose 135 H Lactic Acid 3.30 H* Calcium Phosphorus Magnesium Iron 26 L TIBC 193 L Direct Bilirubin AST ALT Alkaline Phosphatase Total Creatine Kinase CK-MB (CK-2) C-Reactive Protein Total Protein Albumin Vitamin B12 Salicylates Acetaminophen Miscellaneous Test Crossmatch 03/31/19 03/31/19 03/31/19 08:20 08:20 09:06 WBC RBC Hgb Hct MCV MCH MCHC RDW Plt Count [place] % (Auto) Lymph # Seg Neuts % (Manual) Lymphocytes % (Manual) Nucleated RBC % Seg Neutrophils # Man Lymphocytes # (Manual) Monocytes # (Manual) PT INR APTT D-Dimer POC ABG pH ABG pH POC ABG pCO2 POC ABG pO2 ABG pO2 ABG HCO3 ABG O2 Saturation ABG Base Excess ABG Hemoglobin VBG pH Oxyhemoglobin Sodium 153 H Potassium 3.0 L Chloride 118.9 H Carbon Dioxide 18 L BUN 37 H Creatinine Glucose 132 H POC Glucose 145 H Lactic Acid Calcium 7.1 L Phosphorus Magnesium Iron TIBC Direct Bilirubin AST ALT Alkaline Phosphatase Total Creatine Kinase CK-MB (CK-2) C-Reactive Protein Total Protein Albumin Vitamin B12 > 2000 H Salicylates Acetaminophen Miscellaneous Test Crossmatch 03/31/19 03/31/19 03/31/19 10:47 11:49 13:04 WBC RBC Hgb Hct MCV MCH MCHC RDW Plt Count [place] % (Auto) Lymph # Seg Neuts % (Manual) Lymphocytes % (Manual) Nucleated RBC % Seg Neutrophils # Man Lymphocytes # (Manual) Monocytes # (Manual) PT INR APTT D-Dimer POC ABG pH ABG pH POC ABG pCO2 POC ABG pO2 ABG pO2 ABG HCO3 ABG O2 Saturation ABG Base Excess ABG Hemoglobin VBG pH Oxyhemoglobin Sodium Potassium Chloride Carbon Dioxide BUN Creatinine Glucose POC Glucose 153 H 174 H 214 H Lactic Acid Calcium Phosphorus Magnesium Iron TIBC Direct Bilirubin AST ALT Alkaline Phosphatase Total Creatine Kinase CK-MB (CK-2) C-Reactive Protein Total Protein Albumin Vitamin B12 Salicylates Acetaminophen Miscellaneous Test Crossmatch 03/31/19 03/31/19 03/31/19 13:42 15:08 16:08 WBC RBC Hgb Hct MCV MCH MCHC RDW Plt Count [place] % (Auto) Lymph # Seg Neuts % (Manual) Lymphocytes % (Manual) Nucleated RBC % Seg Neutrophils # Man Lymphocytes # (Manual) Monocytes # (Manual) PT INR APTT D-Dimer POC ABG pH ABG pH POC ABG pCO2 POC ABG pO2 ABG pO2 ABG HCO3 ABG O2 Saturation ABG Base Excess ABG Hemoglobin VBG pH Oxyhemoglobin Sodium Potassium Chloride Carbon Dioxide BUN Creatinine Glucose POC Glucose 186 H 136 H 150 H Lactic Acid Calcium Phosphorus Magnesium Iron TIBC Direct Bilirubin AST ALT Alkaline Phosphatase Total Creatine Kinase CK-MB (CK-2) C-Reactive Protein Total Protein Albumin Vitamin B12 Salicylates Acetaminophen Miscellaneous Test Crossmatch 03/31/19 03/31/19 03/31/19 17:11 17:30 17:30 WBC RBC Hgb 7.7 L Hct 23.0 L MCV MCH MCHC RDW Plt Count [place] % (Auto) Lymph # Seg Neuts % (Manual) Lymphocytes % (Manual) Nucleated RBC % Seg Neutrophils # Man Lymphocytes # (Manual) Monocytes # (Manual) PT INR APTT D-Dimer POC ABG pH ABG pH POC ABG pCO2 POC ABG pO2 ABG pO2 ABG HCO3 ABG O2 Saturation ABG Base Excess ABG Hemoglobin VBG pH Oxyhemoglobin Sodium 153 H Potassium 3.5 L Chloride 119.3 H Carbon Dioxide 20 L BUN 34 H Creatinine Glucose 162 H POC Glucose 140 H Lactic Acid Calcium 7.6 L Phosphorus Magnesium Iron TIBC Direct Bilirubin AST ALT Alkaline Phosphatase Total Creatine Kinase CK-MB (CK-2) C-Reactive Protein Total Protein Albumin Vitamin B12 Salicylates Acetaminophen Miscellaneous Test Crossmatch 03/31/19 03/31/19 03/31/19 17:59 18:58 20:28 WBC RBC Hgb Hct MCV MCH MCHC RDW Plt Count [place] % (Auto) Lymph # Seg Neuts % (Manual) Lymphocytes % (Manual) Nucleated RBC % Seg Neutrophils # Man Lymphocytes # (Manual) Monocytes # (Manual) PT INR APTT D-Dimer POC ABG pH ABG pH POC ABG pCO2 POC ABG pO2 ABG pO2 ABG HCO3 ABG O2 Saturation ABG Base Excess ABG Hemoglobin VBG pH Oxyhemoglobin Sodium Potassium Chloride Carbon Dioxide BUN Creatinine Glucose POC Glucose 156 H 152 H 138 H Lactic Acid Calcium Phosphorus Magnesium Iron TIBC Direct Bilirubin AST ALT Alkaline Phosphatase Total Creatine Kinase CK-MB (CK-2) C-Reactive Protein Total Protein Albumin Vitamin B12 Salicylates Acetaminophen Miscellaneous Test Crossmatch 03/31/19 03/31/19 03/31/19 21:09 22:15 23:10 WBC RBC Hgb Hct MCV MCH MCHC RDW Plt Count [place] % (Auto) Lymph # Seg Neuts % (Manual) Lymphocytes % (Manual) Nucleated RBC % Seg Neutrophils # Man Lymphocytes # (Manual) Monocytes # (Manual) PT INR APTT D-Dimer POC ABG pH ABG pH POC ABG pCO2 POC ABG pO2 ABG pO2 ABG HCO3 ABG O2 Saturation ABG Base Excess ABG Hemoglobin VBG pH Oxyhemoglobin Sodium Potassium Chloride Carbon Dioxide BUN Creatinine Glucose POC Glucose 136 H 137 H 148 H Lactic Acid Calcium Phosphorus Magnesium Iron TIBC Direct Bilirubin AST ALT Alkaline Phosphatase Total Creatine Kinase CK-MB (CK-2) C-Reactive Protein Total Protein Albumin Vitamin B12 Salicylates Acetaminophen Miscellaneous Test Crossmatch 04/01/19 04/01/19 04/01/19 00:05 01:17 02:11 WBC RBC Hgb Hct MCV MCH MCHC RDW Plt Count [place] % (Auto) Lymph # Seg Neuts % (Manual) Lymphocytes % (Manual) Nucleated RBC % Seg Neutrophils # Man Lymphocytes # (Manual) Monocytes # (Manual) PT INR APTT D-Dimer POC ABG pH ABG pH POC ABG pCO2 POC ABG pO2 ABG pO2 ABG HCO3 ABG O2 Saturation ABG Base Excess ABG Hemoglobin VBG pH Oxyhemoglobin Sodium Potassium Chloride Carbon Dioxide BUN Creatinine Glucose POC Glucose 143 H 151 H 155 H Lactic Acid Calcium Phosphorus Magnesium Iron TIBC Direct Bilirubin AST ALT Alkaline Phosphatase Total Creatine Kinase CK-MB (CK-2) C-Reactive Protein Total Protein Albumin Vitamin B12 Salicylates Acetaminophen Miscellaneous Test Crossmatch 04/01/19 04/01/19 04/01/19 03:12 04:03 04:16 WBC RBC Hgb Hct MCV MCH MCHC RDW Plt Count [place] % (Auto) Lymph # Seg Neuts % (Manual) Lymphocytes % (Manual) Nucleated RBC % Seg Neutrophils # Man Lymphocytes # (Manual) Monocytes # (Manual) PT INR APTT D-Dimer POC ABG pH ABG pH POC ABG pCO2 POC ABG pO2 ABG pO2 ABG HCO3 ABG O2 Saturation ABG Base Excess ABG Hemoglobin VBG pH Oxyhemoglobin Sodium Potassium Chloride Carbon Dioxide BUN Creatinine Glucose POC Glucose 140 H 143 H 142 H Lactic Acid Calcium Phosphorus Magnesium Iron TIBC Direct Bilirubin AST ALT Alkaline Phosphatase Total Creatine Kinase CK-MB (CK-2) C-Reactive Protein Total Protein Albumin Vitamin B12 Salicylates Acetaminophen Miscellaneous Test Crossmatch 04/01/19 04/01/19 04/01/19 05:01 05:01 05:08 WBC RBC 2.05 L Hgb 6.8 L Hct 20.5 L MCV 100 H MCH 33 H MCHC RDW 17.7 H Plt Count 53 L [place] % (Auto) Lymph # Seg Neuts % (Manual) 71.0 H Lymphocytes % (Manual) Nucleated RBC % Seg Neutrophils # Man Lymphocytes # (Manual) Monocytes # (Manual) PT INR APTT D-Dimer POC ABG pH ABG pH POC ABG pCO2 POC ABG pO2 ABG pO2 ABG HCO3 ABG O2 Saturation ABG Base Excess ABG Hemoglobin VBG pH Oxyhemoglobin Sodium Potassium Chloride Carbon Dioxide BUN Creatinine Glucose POC Glucose 119 H Lactic Acid Calcium Phosphorus Magnesium Iron TIBC Direct Bilirubin 0.3 H AST 4601 H ALT 1542 H Alkaline Phosphatase 185 H Total Creatine Kinase CK-MB (CK-2) C-Reactive Protein Total Protein 3.8 L Albumin 1.6 L Vitamin B12 Salicylates Acetaminophen Miscellaneous Test Crossmatch 04/01/19 04/01/19 04/01/19 05:23 06:37 08:15 WBC RBC Hgb Hct MCV MCH MCHC RDW Plt Count [place] % (Auto) Lymph # Seg Neuts % (Manual) Lymphocytes % (Manual) Nucleated RBC % Seg Neutrophils # Man Lymphocytes # (Manual) Monocytes # (Manual) PT INR APTT D-Dimer POC ABG pH ABG pH POC ABG pCO2 POC ABG pO2 ABG pO2 ABG HCO3 ABG O2 Saturation ABG Base Excess ABG Hemoglobin VBG pH Oxyhemoglobin Sodium Potassium Chloride Carbon Dioxide BUN Creatinine Glucose POC Glucose 115 H 124 H 138 H Lactic Acid Calcium Phosphorus Magnesium Iron TIBC Direct Bilirubin AST ALT Alkaline Phosphatase Total Creatine Kinase CK-MB (CK-2) C-Reactive Protein Total Protein Albumin Vitamin B12 Salicylates Acetaminophen Miscellaneous Test Crossmatch 09/08/19 09/08/19 09/08/19 09:50 10:10 10:31 WBC RBC Hgb 6.5 L Hct 19.2 L* MCV MCH MCHC RDW Plt Count [place] % (Auto) Lymph # Seg Neuts % (Manual) Lymphocytes % (Manual) Nucleated RBC % Seg Neutrophils # Man Lymphocytes # (Manual) Monocytes # (Manual) PT INR APTT D-Dimer POC ABG pH ABG pH POC ABG pCO2 POC ABG pO2 ABG pO2 ABG HCO3 ABG O2 Saturation ABG Base Excess ABG Hemoglobin VBG pH Oxyhemoglobin Sodium 149 H Potassium 3.5 L Chloride 119.9 H Carbon Dioxide 21 L BUN 33 H Creatinine 0.5 L Glucose 142 H POC Glucose 185 H Lactic Acid Calcium 7.3 L Phosphorus Magnesium Iron TIBC Direct Bilirubin AST 3686 H ALT 1440 H Alkaline Phosphatase 185 H Total Creatine Kinase CK-MB (CK-2) C-Reactive Protein Total Protein 3.7 L Albumin 1.8 L Vitamin B12 Salicylates Acetaminophen Miscellaneous Test Crossmatch 04/01/19 04/01/19 04/01/19 11:35 13:05 14:35 WBC RBC Hgb Hct MCV MCH MCHC RDW Plt Count [place] % (Auto) Lymph # Seg Neuts % (Manual) Lymphocytes % (Manual) Nucleated RBC % Seg Neutrophils # Man Lymphocytes # (Manual) Monocytes # (Manual) PT INR APTT D-Dimer POC ABG pH ABG pH POC ABG pCO2 POC ABG pO2 ABG pO2 ABG HCO3 ABG O2 Saturation ABG Base Excess ABG Hemoglobin VBG pH Oxyhemoglobin Sodium Potassium Chloride Carbon Dioxide BUN Creatinine Glucose POC Glucose 201 H 169 H 134 H Lactic Acid Calcium Phosphorus Magnesium Iron TIBC Direct Bilirubin AST ALT Alkaline Phosphatase Total Creatine Kinase CK-MB (CK-2) C-Reactive Protein Total Protein Albumin Vitamin B12 Salicylates Acetaminophen Miscellaneous Test Crossmatch 04/01/19 04/01/19 04/01/19 17:13 17:14 18:30 WBC RBC Hgb Hct MCV MCH MCHC RDW Plt Count [place] % (Auto) Lymph # Seg Neuts % (Manual) Lymphocytes % (Manual) Nucleated RBC % Seg Neutrophils # Man Lymphocytes # (Manual) Monocytes # (Manual) PT INR APTT D-Dimer 5203.68 H POC ABG pH ABG pH POC ABG pCO2 POC ABG pO2 ABG pO2 ABG HCO3 ABG O2 Saturation ABG Base Excess ABG Hemoglobin VBG pH Oxyhemoglobin Sodium Potassium Chloride Carbon Dioxide BUN Creatinine Glucose POC Glucose 69 L 128 H Lactic Acid Calcium Phosphorus Magnesium Iron TIBC Direct Bilirubin AST ALT Alkaline Phosphatase Total Creatine Kinase CK-MB (CK-2) C-Reactive Protein Total Protein Albumin Vitamin B12 Salicylates Acetaminophen Miscellaneous Test Crossmatch 04/01/19 04/01/19 04/02/19 22:50 Unknown 03:40 WBC RBC Hgb Hct MCV MCH MCHC RDW Plt Count [place] % (Auto) Lymph # Seg Neuts % (Manual) Lymphocytes % (Manual) Nucleated RBC % Seg Neutrophils # Man Lymphocytes # (Manual) Monocytes # (Manual) PT INR APTT D-Dimer POC ABG pH ABG pH POC ABG pCO2 POC ABG pO2 ABG pO2 78.3 L 142.8 H ABG HCO3 15.5 L ABG O2 Saturation ABG Base Excess -3.5 L -8.2 L ABG Hemoglobin 6.8 L 8.2 L VBG pH Oxyhemoglobin 94.3 L Sodium Potassium Chloride Carbon Dioxide BUN Creatinine Glucose POC Glucose 342 H Lactic Acid Calcium Phosphorus Magnesium Iron TIBC Direct Bilirubin AST ALT Alkaline Phosphatase Total Creatine Kinase CK-MB (CK-2) C-Reactive Protein Total Protein Albumin Vitamin B12 Salicylates Acetaminophen Miscellaneous Test Crossmatch 04/02/19 04/02/19 04/02/19 03:49 06:50 07:48 WBC RBC 2.65 L Hgb 8.6 L Hct 25.1 L MCV MCH MCHC RDW 17.6 H Plt Count 48 L [place] % (Auto) Lymph # Seg Neuts % (Manual) Lymphocytes % (Manual) Nucleated RBC % Seg Neutrophils # Man Lymphocytes # (Manual) Monocytes # (Manual) PT INR APTT D-Dimer POC ABG pH ABG pH POC ABG pCO2 POC ABG pO2 ABG pO2 ABG HCO3 ABG O2 Saturation ABG Base Excess ABG Hemoglobin VBG pH Oxyhemoglobin Sodium Potassium Chloride Carbon Dioxide BUN Creatinine Glucose POC Glucose 247 H 200 H Lactic Acid Calcium Phosphorus Magnesium Iron TIBC Direct Bilirubin AST ALT Alkaline Phosphatase Total Creatine Kinase CK-MB (CK-2) C-Reactive Protein Total Protein Albumin Vitamin B12 Salicylates Acetaminophen Miscellaneous Test Crossmatch 04/02/19 04/02/19 04/02/19 07:48 11:18 14:07 WBC RBC Hgb Hct MCV MCH MCHC RDW Plt Count [place] % (Auto) Lymph # Seg Neuts % (Manual) Lymphocytes % (Manual) Nucleated RBC % Seg Neutrophils # Man Lymphocytes # (Manual) Monocytes # (Manual) PT INR APTT D-Dimer POC ABG pH ABG pH POC ABG pCO2 POC ABG pO2 ABG pO2 ABG HCO3 ABG O2 Saturation ABG Base Excess ABG Hemoglobin VBG pH Oxyhemoglobin Sodium Potassium 3.5 L Chloride 115.7 H Carbon Dioxide 19 L BUN 29 H Creatinine 0.5 L Glucose 159 H POC Glucose 154 H 149 H Lactic Acid Calcium 7.5 L Phosphorus Magnesium Iron TIBC Direct Bilirubin AST 1418 H ALT 1134 H Alkaline Phosphatase 242 H Total Creatine Kinase CK-MB (CK-2) C-Reactive Protein Total Protein 4.2 L Albumin 2.1 L Vitamin B12 Salicylates Acetaminophen Miscellaneous Test Crossmatch 04/02/19 04/02/19 04/02/19 18:09 19:46 23:05 WBC RBC Hgb Hct MCV MCH MCHC RDW Plt Count [place] % (Auto) Lymph # Seg Neuts % (Manual) Lymphocytes % (Manual) Nucleated RBC % Seg Neutrophils # Man Lymphocytes # (Manual) Monocytes # (Manual) PT INR APTT D-Dimer POC ABG pH ABG pH POC ABG pCO2 POC ABG pO2 ABG pO2 ABG HCO3 ABG O2 Saturation ABG Base Excess ABG Hemoglobin VBG pH Oxyhemoglobin Sodium Potassium Chloride Carbon Dioxide BUN Creatinine Glucose POC Glucose 188 H 209 H 247 H Lactic Acid Calcium Phosphorus Magnesium Iron TIBC Direct Bilirubin AST ALT Alkaline Phosphatase Total Creatine Kinase CK-MB (CK-2) C-Reactive Protein Total Protein Albumin Vitamin B12 Salicylates Acetaminophen Miscellaneous Test Crossmatch 04/03/19 04/03/19 04/03/19 02:58 03:40 03:40 WBC RBC 2.87 L Hgb 9.3 L Hct 27.0 L MCV MCH MCHC RDW 17.2 H Plt Count 65 L [place] % (Auto) 9.8 H Lymph # 1.1 L Seg Neuts % (Manual) Lymphocytes % (Manual) Nucleated RBC % Seg Neutrophils # Man Lymphocytes # (Manual) Monocytes # (Manual) PT INR APTT D-Dimer POC ABG pH ABG pH POC ABG pCO2 POC ABG pO2 ABG pO2 ABG HCO3 ABG O2 Saturation ABG Base Excess ABG Hemoglobin VBG pH Oxyhemoglobin Sodium 147 H Potassium 3.5 L Chloride 116.7 H Carbon Dioxide 18 L BUN Creatinine 0.4 L Glucose 150 H POC Glucose 166 H Lactic Acid Calcium 8.1 L Phosphorus 2.20 L Magnesium Iron TIBC Direct Bilirubin AST 594 H ALT 861 H Alkaline Phosphatase 299 H Total Creatine Kinase CK-MB (CK-2) C-Reactive Protein Total Protein 4.4 L Albumin 2.1 L Vitamin B12 Salicylates Acetaminophen Miscellaneous Test Crossmatch 04/03/19 04/03/19 04/03/19 05:35 07:02 08:23 WBC RBC Hgb Hct MCV MCH MCHC RDW Plt Count [place] % (Auto) Lymph # Seg Neuts % (Manual) Lymphocytes % (Manual) Nucleated RBC % Seg Neutrophils # Man Lymphocytes # (Manual) Monocytes # (Manual) PT INR APTT D-Dimer POC ABG pH ABG pH POC ABG pCO2 POC ABG pO2 ABG pO2 97.7 H ABG HCO3 19.3 L ABG O2 Saturation ABG Base Excess -5.0 L ABG Hemoglobin 8.0 L VBG pH Oxyhemoglobin Sodium Potassium Chloride Carbon Dioxide BUN Creatinine Glucose POC Glucose 135 H 132 H Lactic Acid Calcium Phosphorus Magnesium Iron TIBC Direct Bilirubin AST ALT Alkaline Phosphatase Total Creatine Kinase CK-MB (CK-2) C-Reactive Protein Total Protein Albumin Vitamin B12 Salicylates Acetaminophen Miscellaneous Test Crossmatch 04/03/19 04/03/19 04/03/19 11:58 15:11 17:53 WBC RBC Hgb Hct MCV MCH MCHC RDW Plt Count [place] % (Auto) Lymph # Seg Neuts % (Manual) Lymphocytes % (Manual) Nucleated RBC % Seg Neutrophils # Man Lymphocytes # (Manual) Monocytes # (Manual) PT INR APTT D-Dimer POC ABG pH ABG pH POC ABG pCO2 POC ABG pO2 ABG pO2 ABG HCO3 ABG O2 Saturation ABG Base Excess ABG Hemoglobin VBG pH Oxyhemoglobin Sodium Potassium Chloride Carbon Dioxide BUN Creatinine Glucose POC Glucose 179 H 213 H 223 H Lactic Acid Calcium Phosphorus Magnesium Iron TIBC Direct Bilirubin AST ALT Alkaline Phosphatase Total Creatine Kinase CK-MB (CK-2) C-Reactive Protein Total Protein Albumin Vitamin B12 Salicylates Acetaminophen Miscellaneous Test Crossmatch 04/03/19 04/04/19 04/04/19 23:06 02:36 06:41 WBC RBC Hgb Hct MCV MCH MCHC RDW Plt Count [place] % (Auto) Lymph # Seg Neuts % (Manual) Lymphocytes % (Manual) Nucleated RBC % Seg Neutrophils # Man Lymphocytes # (Manual) Monocytes # (Manual) PT INR APTT D-Dimer POC ABG pH ABG pH POC ABG pCO2 POC ABG pO2 ABG pO2 ABG HCO3 ABG O2 Saturation ABG Base Excess ABG Hemoglobin VBG pH Oxyhemoglobin Sodium Potassium Chloride Carbon Dioxide BUN Creatinine Glucose POC Glucose 189 H 157 H 131 H Lactic Acid Calcium Phosphorus Magnesium Iron TIBC Direct Bilirubin AST ALT Alkaline Phosphatase Total Creatine Kinase CK-MB (CK-2) C-Reactive Protein Total Protein Albumin Vitamin B12 Salicylates Acetaminophen Miscellaneous Test Crossmatch 04/04/19 04/04/19 04/04/19 11:42 15:45 18:21 WBC RBC Hgb Hct MCV MCH MCHC RDW Plt Count [place] % (Auto) Lymph # Seg Neuts % (Manual) Lymphocytes % (Manual) Nucleated RBC % Seg Neutrophils # Man Lymphocytes # (Manual) Monocytes # (Manual) PT INR APTT D-Dimer POC ABG pH ABG pH POC ABG pCO2 POC ABG pO2 ABG pO2 ABG HCO3 ABG O2 Saturation ABG Base Excess ABG Hemoglobin VBG pH Oxyhemoglobin Sodium Potassium Chloride Carbon Dioxide BUN Creatinine Glucose POC Glucose 233 H 236 H 255 H Lactic Acid Calcium Phosphorus Magnesium Iron TIBC Direct Bilirubin AST ALT Alkaline Phosphatase Total Creatine Kinase CK-MB (CK-2) C-Reactive Protein Total Protein Albumin Vitamin B12 Salicylates Acetaminophen Miscellaneous Test Crossmatch 04/04/19 04/05/19 04/05/19 21:21 03:06 06:05 WBC RBC 2.68 L Hgb 8.5 L Hct 26.3 L MCV 98 H MCH MCHC RDW 17.4 H Plt Count [place] % (Auto) Lymph # Seg Neuts % (Manual) Lymphocytes % (Manual) Nucleated RBC % Seg Neutrophils # Man Lymphocytes # (Manual) Monocytes # (Manual) PT INR APTT D-Dimer POC ABG pH ABG pH POC ABG pCO2 POC ABG pO2 ABG pO2 ABG HCO3 ABG O2 Saturation ABG Base Excess ABG Hemoglobin VBG pH Oxyhemoglobin Sodium Potassium Chloride Carbon Dioxide BUN Creatinine Glucose POC Glucose 132 H 161 H Lactic Acid Calcium Phosphorus Magnesium Iron TIBC Direct Bilirubin AST ALT Alkaline Phosphatase Total Creatine Kinase CK-MB (CK-2) C-Reactive Protein Total Protein Albumin Vitamin B12 Salicylates Acetaminophen Miscellaneous Test Crossmatch 04/05/19 04/05/19 04/05/19 06:05 06:49 10:23 WBC RBC Hgb Hct MCV MCH MCHC RDW Plt Count [place] % (Auto) Lymph # Seg Neuts % (Manual) Lymphocytes % (Manual) Nucleated RBC % Seg Neutrophils # Man Lymphocytes # (Manual) Monocytes # (Manual) PT INR APTT D-Dimer POC ABG pH ABG pH POC ABG pCO2 POC ABG pO2 ABG pO2 ABG HCO3 ABG O2 Saturation ABG Base Excess ABG Hemoglobin VBG pH Oxyhemoglobin Sodium Potassium Chloride 112.5 H Carbon Dioxide BUN Creatinine 0.2 L Glucose 237 H POC Glucose 283 H 296 H Lactic Acid Calcium 7.9 L Phosphorus Magnesium Iron TIBC Direct Bilirubin AST ALT Alkaline Phosphatase Total Creatine Kinase CK-MB (CK-2) C-Reactive Protein Total Protein Albumin Vitamin B12 Salicylates Acetaminophen Miscellaneous Test Crossmatch 04/05/19 04/05/19 04/05/19 14:46 18:19 20:35 WBC RBC Hgb Hct MCV MCH MCHC RDW Plt Count [place] % (Auto) Lymph # Seg Neuts % (Manual) Lymphocytes % (Manual) Nucleated RBC % Seg Neutrophils # Man Lymphocytes # (Manual) Monocytes # (Manual) PT INR APTT D-Dimer POC ABG pH ABG pH POC ABG pCO2 POC ABG pO2 ABG pO2 ABG HCO3 ABG O2 Saturation ABG Base Excess ABG Hemoglobin VBG pH Oxyhemoglobin Sodium Potassium Chloride Carbon Dioxide BUN Creatinine Glucose POC Glucose 225 H 259 H 236 H Lactic Acid Calcium Phosphorus Magnesium Iron TIBC Direct Bilirubin AST ALT Alkaline Phosphatase Total Creatine Kinase CK-MB (CK-2) C-Reactive Protein Total Protein Albumin Vitamin B12 Salicylates Acetaminophen Miscellaneous Test Crossmatch 04/05/19 04/06/19 04/06/19 23:11 00:06 03:14 WBC RBC Hgb Hct MCV MCH MCHC RDW Plt Count [place] % (Auto) Lymph # Seg Neuts % (Manual) Lymphocytes % (Manual) Nucleated RBC % Seg Neutrophils # Man Lymphocytes # (Manual) Monocytes # (Manual) PT INR APTT D-Dimer 4526.86 H POC ABG pH ABG pH POC ABG pCO2 POC ABG pO2 ABG pO2 ABG HCO3 ABG O2 Saturation ABG Base Excess ABG Hemoglobin VBG pH Oxyhemoglobin Sodium Potassium Chloride Carbon Dioxide BUN Creatinine Glucose POC Glucose 205 H 228 H Lactic Acid Calcium Phosphorus Magnesium Iron TIBC Direct Bilirubin AST ALT Alkaline Phosphatase Total Creatine Kinase CK-MB (CK-2) C-Reactive Protein Total Protein Albumin Vitamin B12 Salicylates Acetaminophen Miscellaneous Test Crossmatch 04/06/19 04/06/19 04/06/19 05:20 05:20 07:57 WBC 15.1 H RBC 2.90 L Hgb 9.1 L Hct 28.0 L MCV MCH MCHC RDW 17.3 H Plt Count [place] % (Auto) Lymph # Seg Neuts % (Manual) Lymphocytes % (Manual) Nucleated RBC % Seg Neutrophils # Man Lymphocytes # (Manual) Monocytes # (Manual) PT INR APTT D-Dimer POC ABG pH ABG pH POC ABG pCO2 POC ABG pO2 ABG pO2 ABG HCO3 ABG O2 Saturation ABG Base Excess ABG Hemoglobin VBG pH Oxyhemoglobin Sodium Potassium Chloride Carbon Dioxide BUN Creatinine 0.2 L Glucose 161 H POC Glucose 191 H Lactic Acid Calcium 8.0 L Phosphorus Magnesium Iron TIBC Direct Bilirubin AST ALT Alkaline Phosphatase Total Creatine Kinase CK-MB (CK-2) C-Reactive Protein Total Protein Albumin Vitamin B12 Salicylates Acetaminophen Miscellaneous Test Crossmatch 04/06/19 04/06/19 04/06/19 12:09 18:24 22:07 WBC RBC Hgb Hct MCV MCH MCHC RDW Plt Count [place] % (Auto) Lymph # Seg Neuts % (Manual) Lymphocytes % (Manual) Nucleated RBC % Seg Neutrophils # Man Lymphocytes # (Manual) Monocytes # (Manual) PT INR APTT D-Dimer POC ABG pH ABG pH POC ABG pCO2 POC ABG pO2 ABG pO2 ABG HCO3 ABG O2 Saturation ABG Base Excess ABG Hemoglobin VBG pH Oxyhemoglobin Sodium Potassium Chloride Carbon Dioxide BUN Creatinine Glucose POC Glucose 143 H 161 H 140 H Lactic Acid Calcium Phosphorus Magnesium Iron TIBC Direct Bilirubin AST ALT Alkaline Phosphatase Total Creatine Kinase CK-MB (CK-2) C-Reactive Protein Total Protein Albumin Vitamin B12 Salicylates Acetaminophen Miscellaneous Test Crossmatch 04/07/19 04/07/19 04/07/19 03:00 04:30 04:30 WBC 13.0 H RBC 2.65 L Hgb 8.3 L Hct 25.5 L MCV MCH MCHC RDW 17.0 H Plt Count [place] % (Auto) Lymph # Seg Neuts % (Manual) Lymphocytes % (Manual) Nucleated RBC % Seg Neutrophils # Man Lymphocytes # (Manual) Monocytes # (Manual) PT INR APTT D-Dimer POC ABG pH ABG pH POC ABG pCO2 POC ABG pO2 ABG pO2 ABG HCO3 ABG O2 Saturation ABG Base Excess ABG Hemoglobin VBG pH Oxyhemoglobin Sodium Potassium Chloride Carbon Dioxide BUN Creatinine 0.2 L Glucose 208 H POC Glucose 224 H Lactic Acid Calcium 7.7 L Phosphorus Magnesium Iron TIBC Direct Bilirubin AST ALT Alkaline Phosphatase Total Creatine Kinase CK-MB (CK-2) C-Reactive Protein Total Protein Albumin Vitamin B12 Salicylates Acetaminophen Miscellaneous Test Crossmatch 04/07/19 04/07/19 04/07/19 05:47 08:27 10:33 WBC RBC Hgb Hct MCV MCH MCHC RDW Plt Count [place] % (Auto) Lymph # Seg Neuts % (Manual) Lymphocytes % (Manual) Nucleated RBC % Seg Neutrophils # Man Lymphocytes # (Manual) Monocytes # (Manual) PT INR APTT D-Dimer POC ABG pH ABG pH POC ABG pCO2 POC ABG pO2 ABG pO2 ABG HCO3 ABG O2 Saturation ABG Base Excess ABG Hemoglobin VBG pH Oxyhemoglobin Sodium Potassium Chloride Carbon Dioxide BUN Creatinine Glucose POC Glucose 225 H 176 H 207 H Lactic Acid Calcium Phosphorus Magnesium Iron TIBC Direct Bilirubin AST ALT Alkaline Phosphatase Total Creatine Kinase CK-MB (CK-2) C-Reactive Protein Total Protein Albumin Vitamin B12 Salicylates Acetaminophen Miscellaneous Test Crossmatch 04/07/19 04/07/19 04/07/19 14:13 18:32 22:42 WBC RBC Hgb Hct MCV MCH MCHC RDW Plt Count [place] % (Auto) Lymph # Seg Neuts % (Manual) Lymphocytes % (Manual) Nucleated RBC % Seg Neutrophils # Man Lymphocytes # (Manual) Monocytes # (Manual) PT INR APTT D-Dimer POC ABG pH ABG pH POC ABG pCO2 POC ABG pO2 ABG pO2 ABG HCO3 ABG O2 Saturation ABG Base Excess ABG Hemoglobin VBG pH Oxyhemoglobin Sodium Potassium Chloride Carbon Dioxide BUN Creatinine Glucose POC Glucose 219 H 227 H 238 H Lactic Acid Calcium Phosphorus Magnesium Iron TIBC Direct Bilirubin AST ALT Alkaline Phosphatase Total Creatine Kinase CK-MB (CK-2) C-Reactive Protein Total Protein Albumin Vitamin B12 Salicylates Acetaminophen Miscellaneous Test Crossmatch 04/08/19 04/08/19 04/08/19 02:31 05:37 14:10 WBC RBC Hgb Hct MCV MCH MCHC RDW Plt Count [place] % (Auto) Lymph # Seg Neuts % (Manual) Lymphocytes % (Manual) Nucleated RBC % Seg Neutrophils # Man Lymphocytes # (Manual) Monocytes # (Manual) PT INR APTT D-Dimer POC ABG pH ABG pH POC ABG pCO2 POC ABG pO2 ABG pO2 ABG HCO3 ABG O2 Saturation ABG Base Excess ABG Hemoglobin VBG pH Oxyhemoglobin Sodium Potassium Chloride Carbon Dioxide BUN Creatinine Glucose POC Glucose 194 H 194 H 139 H Lactic Acid Calcium Phosphorus Magnesium Iron TIBC Direct Bilirubin AST ALT Alkaline Phosphatase Total Creatine Kinase CK-MB (CK-2) C-Reactive Protein Total Protein Albumin Vitamin B12 Salicylates Acetaminophen Miscellaneous Test Crossmatch 04/08/19 04/08/19 04/09/19 17:43 23:20 03:28 WBC RBC Hgb Hct MCV MCH MCHC RDW Plt Count [place] % (Auto) Lymph # Seg Neuts % (Manual) Lymphocytes % (Manual) Nucleated RBC % Seg Neutrophils # Man Lymphocytes # (Manual) Monocytes # (Manual) PT INR APTT D-Dimer POC ABG pH ABG pH POC ABG pCO2 POC ABG pO2 ABG pO2 ABG HCO3 ABG O2 Saturation ABG Base Excess ABG Hemoglobin VBG pH Oxyhemoglobin Sodium Potassium Chloride Carbon Dioxide BUN Creatinine Glucose POC Glucose 261 H 277 H 301 H Lactic Acid Calcium Phosphorus Magnesium Iron TIBC Direct Bilirubin AST ALT Alkaline Phosphatase Total Creatine Kinase CK-MB (CK-2) C-Reactive Protein Total Protein Albumin Vitamin B12 Salicylates Acetaminophen Miscellaneous Test Crossmatch 04/09/19 04/09/19 04/09/19 05:35 05:35 05:35 WBC RBC 2.78 L Hgb 9.0 L Hct 26.7 L MCV MCH MCHC RDW 17.0 H Plt Count [place] % (Auto) Lymph # Seg Neuts % (Manual) Lymphocytes % (Manual) Nucleated RBC % Seg Neutrophils # Man Lymphocytes # (Manual) Monocytes # (Manual) PT INR APTT D-Dimer POC ABG pH ABG pH POC ABG pCO2 POC ABG pO2 ABG pO2 ABG HCO3 ABG O2 Saturation ABG Base Excess ABG Hemoglobin VBG pH Oxyhemoglobin Sodium Potassium Chloride Carbon Dioxide 31 H BUN Creatinine 0.2 L Glucose 218 H POC Glucose 240 H Lactic Acid Calcium Phosphorus Magnesium Iron TIBC Direct Bilirubin AST ALT Alkaline Phosphatase Total Creatine Kinase CK-MB (CK-2) C-Reactive Protein Total Protein Albumin Vitamin B12 Salicylates Acetaminophen Miscellaneous Test Crossmatch 04/09/19 04/09/19 04/09/19 09:01 12:23 17:33 WBC RBC Hgb Hct MCV MCH MCHC RDW Plt Count [place] % (Auto) Lymph # Seg Neuts % (Manual) Lymphocytes % (Manual) Nucleated RBC % Seg Neutrophils # Man Lymphocytes # (Manual) Monocytes # (Manual) PT INR APTT D-Dimer POC ABG pH ABG pH POC ABG pCO2 POC ABG pO2 ABG pO2 ABG HCO3 ABG O2 Saturation ABG Base Excess ABG Hemoglobin VBG pH Oxyhemoglobin Sodium Potassium Chloride Carbon Dioxide BUN Creatinine Glucose POC Glucose 160 H 162 H 149 H Lactic Acid Calcium Phosphorus Magnesium Iron TIBC Direct Bilirubin AST ALT Alkaline Phosphatase Total Creatine Kinase CK-MB (CK-2) C-Reactive Protein Total Protein Albumin Vitamin B12 Salicylates Acetaminophen Miscellaneous Test Crossmatch 04/09/19 04/09/19 04/10/19 21:26 22:28 03:16 WBC RBC Hgb Hct MCV MCH MCHC RDW Plt Count [place] % (Auto) Lymph # Seg Neuts % (Manual) Lymphocytes % (Manual) Nucleated RBC % Seg Neutrophils # Man Lymphocytes # (Manual) Monocytes # (Manual) PT INR APTT D-Dimer POC ABG pH ABG pH POC ABG pCO2 POC ABG pO2 ABG pO2 ABG HCO3 ABG O2 Saturation ABG Base Excess ABG Hemoglobin VBG pH Oxyhemoglobin Sodium Potassium Chloride Carbon Dioxide BUN Creatinine Glucose POC Glucose 196 H 224 H 163 H Lactic Acid Calcium Phosphorus Magnesium Iron TIBC Direct Bilirubin AST ALT Alkaline Phosphatase Total Creatine Kinase CK-MB (CK-2) C-Reactive Protein Total Protein Albumin Vitamin B12 Salicylates Acetaminophen Miscellaneous Test Crossmatch 04/10/19 04/10/19 04/10/19 04:15 04:15 05:30 WBC RBC 2.88 L Hgb 9.2 L Hct 27.9 L MCV MCH MCHC RDW 17.0 H Plt Count 454 H [place] % (Auto) Lymph # Seg Neuts % (Manual) Lymphocytes % (Manual) Nucleated RBC % Seg Neutrophils # Man Lymphocytes # (Manual) Monocytes # (Manual) PT INR APTT D-Dimer POC ABG pH ABG pH POC ABG pCO2 POC ABG pO2 ABG pO2 ABG HCO3 ABG O2 Saturation ABG Base Excess ABG Hemoglobin VBG pH Oxyhemoglobin Sodium Potassium Chloride Carbon Dioxide 32 H BUN Creatinine 0.2 L Glucose 126 H POC Glucose 135 H Lactic Acid Calcium Phosphorus Magnesium Iron TIBC Direct Bilirubin AST ALT Alkaline Phosphatase Total Creatine Kinase CK-MB (CK-2) C-Reactive Protein Total Protein Albumin Vitamin B12 Salicylates Acetaminophen Miscellaneous Test Crossmatch 04/10/19 04/10/19 04/10/19 12:14 15:29 23:38 WBC RBC Hgb Hct MCV MCH MCHC RDW Plt Count [place] % (Auto) Lymph # Seg Neuts % (Manual) Lymphocytes % (Manual) Nucleated RBC % Seg Neutrophils # Man Lymphocytes # (Manual) Monocytes # (Manual) PT INR APTT D-Dimer POC ABG pH ABG pH POC ABG pCO2 POC ABG pO2 ABG pO2 ABG HCO3 ABG O2 Saturation ABG Base Excess ABG Hemoglobin VBG pH Oxyhemoglobin Sodium Potassium Chloride Carbon Dioxide BUN Creatinine Glucose POC Glucose 109 H 149 H 268 H Lactic Acid Calcium Phosphorus Magnesium Iron TIBC Direct Bilirubin AST ALT Alkaline Phosphatase Total Creatine Kinase CK-MB (CK-2) C-Reactive Protein Total Protein Albumin Vitamin B12 Salicylates Acetaminophen Miscellaneous Test Crossmatch 04/11/19 04/11/19 04/11/19 05:27 12:08 18:08 WBC RBC Hgb Hct MCV MCH MCHC RDW Plt Count [place] % (Auto) Lymph # Seg Neuts % (Manual) Lymphocytes % (Manual) Nucleated RBC % Seg Neutrophils # Man Lymphocytes # (Manual) Monocytes # (Manual) PT INR APTT D-Dimer POC ABG pH ABG pH POC ABG pCO2 POC ABG pO2 ABG pO2 ABG HCO3 ABG O2 Saturation ABG Base Excess ABG Hemoglobin VBG pH Oxyhemoglobin Sodium Potassium Chloride Carbon Dioxide BUN Creatinine Glucose POC Glucose 109 H 185 H 190 H Lactic Acid Calcium Phosphorus Magnesium Iron TIBC Direct Bilirubin AST ALT Alkaline Phosphatase Total Creatine Kinase CK-MB (CK-2) C-Reactive Protein Total Protein Albumin Vitamin B12 Salicylates Acetaminophen Miscellaneous Test Crossmatch 04/11/19 04/12/19 04/12/19 23:23 06:00 11:42 WBC RBC Hgb Hct MCV MCH MCHC RDW Plt Count [place] % (Auto) Lymph # Seg Neuts % (Manual) Lymphocytes % (Manual) Nucleated RBC % Seg Neutrophils # Man Lymphocytes # (Manual) Monocytes # (Manual) PT INR APTT D-Dimer POC ABG pH ABG pH POC ABG pCO2 POC ABG pO2 ABG pO2 ABG HCO3 ABG O2 Saturation ABG Base Excess ABG Hemoglobin VBG pH Oxyhemoglobin Sodium Potassium Chloride Carbon Dioxide BUN Creatinine Glucose POC Glucose 127 H 201 H 161 H Lactic Acid Calcium Phosphorus Magnesium Iron TIBC Direct Bilirubin AST ALT Alkaline Phosphatase Total Creatine Kinase CK-MB (CK-2) C-Reactive Protein Total Protein Albumin Vitamin B12 Salicylates Acetaminophen Miscellaneous Test Crossmatch 04/12/19 04/12/19 04/12/19 17:56 20:07 21:59 WBC RBC Hgb Hct MCV MCH MCHC RDW Plt Count [place] % (Auto) Lymph # Seg Neuts % (Manual) Lymphocytes % (Manual) Nucleated RBC % Seg Neutrophils # Man Lymphocytes # (Manual) Monocytes # (Manual) PT INR APTT D-Dimer POC ABG pH ABG pH POC ABG pCO2 POC ABG pO2 ABG pO2 ABG HCO3 ABG O2 Saturation ABG Base Excess ABG Hemoglobin VBG pH Oxyhemoglobin Sodium Potassium Chloride Carbon Dioxide BUN Creatinine Glucose POC Glucose 145 H 158 H 203 H Lactic Acid Calcium Phosphorus Magnesium Iron TIBC Direct Bilirubin AST ALT Alkaline Phosphatase Total Creatine Kinase CK-MB (CK-2) C-Reactive Protein Total Protein Albumin Vitamin B12 Salicylates Acetaminophen Miscellaneous Test Crossmatch 04/12/19 04/13/19 04/13/19 23:37 08:50 08:50 WBC 15.7 H RBC 3.12 L Hgb Hct 30.2 L MCV MCH 33 H MCHC RDW 18.0 H Plt Count 678 H [place] % (Auto) Lymph # Seg Neuts % (Manual) Lymphocytes % (Manual) Nucleated RBC % Seg Neutrophils # Man Lymphocytes # (Manual) Monocytes # (Manual) PT INR APTT D-Dimer POC ABG pH ABG pH POC ABG pCO2 POC ABG pO2 ABG pO2 ABG HCO3 ABG O2 Saturation ABG Base Excess ABG Hemoglobin VBG pH Oxyhemoglobin Sodium Potassium Chloride Carbon Dioxide BUN Creatinine < 0.2 L Glucose 46 L POC Glucose 238 H Lactic Acid Calcium Phosphorus Magnesium Iron TIBC Direct Bilirubin AST ALT Alkaline Phosphatase Total Creatine Kinase CK-MB (CK-2) C-Reactive Protein Total Protein Albumin Vitamin B12 Salicylates Acetaminophen Miscellaneous Test Crossmatch 04/13/19 04/13/19 04/13/19 11:56 17:27 23:57 WBC RBC Hgb Hct MCV MCH MCHC RDW Plt Count [place] % (Auto) Lymph # Seg Neuts % (Manual) Lymphocytes % (Manual) Nucleated RBC % Seg Neutrophils # Man Lymphocytes # (Manual) Monocytes # (Manual) PT INR APTT D-Dimer POC ABG pH ABG pH POC ABG pCO2 POC ABG pO2 ABG pO2 ABG HCO3 ABG O2 Saturation ABG Base Excess ABG Hemoglobin VBG pH Oxyhemoglobin Sodium Potassium Chloride Carbon Dioxide BUN Creatinine Glucose POC Glucose 40 L 66 L 65 L Lactic Acid Calcium Phosphorus Magnesium Iron TIBC Direct Bilirubin AST ALT Alkaline Phosphatase Total Creatine Kinase CK-MB (CK-2) C-Reactive Protein Total Protein Albumin Vitamin B12 Salicylates Acetaminophen Miscellaneous Test Crossmatch 04/14/19 04/14/19 04/14/19 05:28 08:20 08:20 WBC 17.8 H RBC 3.26 L Hgb Hct MCV 98 H MCH MCHC RDW 18.3 H Plt Count 622 H [place] % (Auto) Lymph # Seg Neuts % (Manual) Lymphocytes % (Manual) Nucleated RBC % Seg Neutrophils # Man Lymphocytes # (Manual) Monocytes # (Manual) PT INR APTT D-Dimer POC ABG pH ABG pH POC ABG pCO2 POC ABG pO2 ABG pO2 ABG HCO3 ABG O2 Saturation ABG Base Excess ABG Hemoglobin VBG pH Oxyhemoglobin Sodium Potassium Chloride Carbon Dioxide BUN 6 L Creatinine < 0.2 L Glucose 154 H POC Glucose 149 H Lactic Acid Calcium Phosphorus Magnesium Iron TIBC Direct Bilirubin AST ALT Alkaline Phosphatase Total Creatine Kinase CK-MB (CK-2) C-Reactive Protein Total Protein Albumin Vitamin B12 Salicylates Acetaminophen Miscellaneous Test Crossmatch 04/14/19 04/14/19 04/14/19 12:16 17:54 23:35 WBC RBC Hgb Hct MCV MCH MCHC RDW Plt Count [place] % (Auto) Lymph # Seg Neuts % (Manual) Lymphocytes % (Manual) Nucleated RBC % Seg Neutrophils # Man Lymphocytes # (Manual) Monocytes # (Manual) PT INR APTT D-Dimer POC ABG pH ABG pH POC ABG pCO2 POC ABG pO2 ABG pO2 ABG HCO3 ABG O2 Saturation ABG Base Excess ABG Hemoglobin VBG pH Oxyhemoglobin Sodium Potassium Chloride Carbon Dioxide BUN Creatinine Glucose POC Glucose 176 H 224 H 173 H Lactic Acid Calcium Phosphorus Magnesium Iron TIBC Direct Bilirubin AST ALT Alkaline Phosphatase Total Creatine Kinase CK-MB (CK-2) C-Reactive Protein Total Protein Albumin Vitamin B12 Salicylates Acetaminophen Miscellaneous Test Crossmatch 04/15/19 04/15/19 04/15/19 05:44 12:44 18:06 WBC RBC Hgb Hct MCV MCH MCHC RDW Plt Count [place] % (Auto) Lymph # Seg Neuts % (Manual) Lymphocytes % (Manual) Nucleated RBC % Seg Neutrophils # Man Lymphocytes # (Manual) Monocytes # (Manual) PT INR APTT D-Dimer POC ABG pH 7.461 H ABG pH POC ABG pCO2 45.5 H POC ABG pO2 ABG pO2 ABG HCO3 ABG O2 Saturation ABG Base Excess ABG Hemoglobin VBG pH Oxyhemoglobin Sodium Potassium Chloride Carbon Dioxide BUN Creatinine Glucose POC Glucose 255 H 365 H Lactic Acid Calcium Phosphorus Magnesium Iron TIBC Direct Bilirubin AST ALT Alkaline Phosphatase Total Creatine Kinase CK-MB (CK-2) C-Reactive Protein Total Protein Albumin Vitamin B12 Salicylates Acetaminophen Miscellaneous Test Crossmatch 04/15/19 04/15/19 04/16/19 18:06 23:34 00:40 WBC RBC Hgb Hct MCV MCH MCHC RDW Plt Count [place] % (Auto) Lymph # Seg Neuts % (Manual) Lymphocytes % (Manual) Nucleated RBC % Seg Neutrophils # Man Lymphocytes # (Manual) Monocytes # (Manual) PT INR APTT D-Dimer POC ABG pH ABG pH POC ABG pCO2 POC ABG pO2 ABG pO2 ABG HCO3 ABG O2 Saturation ABG Base Excess ABG Hemoglobin VBG pH Oxyhemoglobin Sodium Potassium Chloride Carbon Dioxide BUN Creatinine Glucose POC Glucose 157 H 56 L 107 H Lactic Acid Calcium Phosphorus Magnesium Iron TIBC Direct Bilirubin AST ALT Alkaline Phosphatase Total Creatine Kinase CK-MB (CK-2) C-Reactive Protein Total Protein Albumin Vitamin B12 Salicylates Acetaminophen Miscellaneous Test Crossmatch 04/16/19 04/16/19 04/16/19 09:06 09:06 11:21 WBC 12.9 H RBC 2.95 L Hgb 9.7 L Hct 28.9 L MCV 98 H MCH 33 H MCHC RDW 17.7 H Plt Count 581 H [place] % (Auto) Lymph # Seg Neuts % (Manual) Lymphocytes % (Manual) Nucleated RBC % Seg Neutrophils # Man Lymphocytes # (Manual) Monocytes # (Manual) PT INR APTT D-Dimer POC ABG pH ABG pH POC ABG pCO2 POC ABG pO2 ABG pO2 ABG HCO3 ABG O2 Saturation ABG Base Excess ABG Hemoglobin VBG pH Oxyhemoglobin Sodium Potassium Chloride Carbon Dioxide 31 H BUN Creatinine 0.2 L Glucose 155 H POC Glucose 184 H Lactic Acid Calcium Phosphorus Magnesium Iron TIBC Direct Bilirubin AST ALT Alkaline Phosphatase Total Creatine Kinase CK-MB (CK-2) C-Reactive Protein Total Protein Albumin Vitamin B12 Salicylates Acetaminophen Miscellaneous Test Crossmatch 04/16/19 04/16/19 04/16/19 17:28 20:17 23:09 WBC RBC Hgb Hct MCV MCH MCHC RDW Plt Count [place] % (Auto) Lymph # Seg Neuts % (Manual) Lymphocytes % (Manual) Nucleated RBC % Seg Neutrophils # Man Lymphocytes # (Manual) Monocytes # (Manual) PT INR APTT D-Dimer POC ABG pH 7.479 H ABG pH POC ABG pCO2 POC ABG pO2 71 L ABG pO2 ABG HCO3 ABG O2 Saturation ABG Base Excess ABG Hemoglobin VBG pH Oxyhemoglobin Sodium Potassium Chloride Carbon Dioxide BUN Creatinine Glucose POC Glucose 173 H 178 H Lactic Acid Calcium Phosphorus Magnesium Iron TIBC Direct Bilirubin AST ALT Alkaline Phosphatase Total Creatine Kinase CK-MB (CK-2) C-Reactive Protein Total Protein Albumin Vitamin B12 Salicylates Acetaminophen Miscellaneous Test Crossmatch 04/17/19 04/17/19 04/17/19 05:02 11:39 12:48 WBC RBC Hgb Hct MCV MCH MCHC RDW Plt Count [place] % (Auto) Lymph # Seg Neuts % (Manual) Lymphocytes % (Manual) Nucleated RBC % Seg Neutrophils # Man Lymphocytes # (Manual) Monocytes # (Manual) PT INR APTT D-Dimer POC ABG pH 7.557 H ABG pH POC ABG pCO2 32.8 L POC ABG pO2 149 H ABG pO2 ABG HCO3 ABG O2 Saturation ABG Base Excess ABG Hemoglobin VBG pH Oxyhemoglobin Sodium Potassium Chloride Carbon Dioxide BUN Creatinine Glucose POC Glucose 252 H 124 H Lactic Acid Calcium Phosphorus Magnesium Iron TIBC Direct Bilirubin AST ALT Alkaline Phosphatase Total Creatine Kinase CK-MB (CK-2) C-Reactive Protein Total Protein Albumin Vitamin B12 Salicylates Acetaminophen Miscellaneous Test Crossmatch 04/17/19 04/18/19 04/18/19 23:31 05:32 11:34 WBC RBC Hgb Hct MCV MCH MCHC RDW Plt Count [place] % (Auto) Lymph # Seg Neuts % (Manual) Lymphocytes % (Manual) Nucleated RBC % Seg Neutrophils # Man Lymphocytes # (Manual) Monocytes # (Manual) PT INR APTT D-Dimer POC ABG pH ABG pH POC ABG pCO2 POC ABG pO2 ABG pO2 ABG HCO3 ABG O2 Saturation ABG Base Excess ABG Hemoglobin VBG pH Oxyhemoglobin Sodium Potassium Chloride Carbon Dioxide BUN Creatinine Glucose POC Glucose 149 H 334 H 344 H Lactic Acid Calcium Phosphorus Magnesium Iron TIBC Direct Bilirubin AST ALT Alkaline Phosphatase Total Creatine Kinase CK-MB (CK-2) C-Reactive Protein Total Protein Albumin Vitamin B12 Salicylates Acetaminophen Miscellaneous Test Crossmatch 04/18/19 04/18/19 04/18/19 17:43 18:14 23:35 WBC RBC Hgb Hct MCV MCH MCHC RDW Plt Count [place] % (Auto) Lymph # Seg Neuts % (Manual) Lymphocytes % (Manual) Nucleated RBC % Seg Neutrophils # Man Lymphocytes # (Manual) Monocytes # (Manual) PT INR APTT D-Dimer POC ABG pH ABG pH POC ABG pCO2 49.2 H POC ABG pO2 ABG pO2 ABG HCO3 ABG O2 Saturation ABG Base Excess ABG Hemoglobin VBG pH Oxyhemoglobin Sodium Potassium Chloride Carbon Dioxide BUN Creatinine Glucose POC Glucose 289 H 312 H Lactic Acid Calcium Phosphorus Magnesium Iron TIBC Direct Bilirubin AST ALT Alkaline Phosphatase Total Creatine Kinase CK-MB (CK-2) C-Reactive Protein Total Protein Albumin Vitamin B12 Salicylates Acetaminophen Miscellaneous Test Crossmatch 04/19/19 04/19/19 04:35 05:55 WBC RBC Hgb Hct MCV MCH MCHC RDW Plt Count [place] % (Auto) Lymph # Seg Neuts % (Manual) Lymphocytes % (Manual) Nucleated RBC % Seg Neutrophils # Man Lymphocytes # (Manual) Monocytes # (Manual) PT INR APTT D-Dimer POC ABG pH 7.565 H ABG pH POC ABG pCO2 POC ABG pO2 ABG pO2 ABG HCO3 ABG O2 Saturation ABG Base Excess ABG Hemoglobin VBG pH Oxyhemoglobin Sodium Potassium Chloride Carbon Dioxide BUN Creatinine Glucose POC Glucose 172 H Lactic Acid Calcium Phosphorus Magnesium Iron TIBC Direct Bilirubin AST ALT Alkaline Phosphatase Total Creatine Kinase CK-MB (CK-2) C-Reactive Protein Total Protein Albumin Vitamin B12 Salicylates Acetaminophen Miscellaneous Test Crossmatch Chest x-ray: image reviewed (No right mainstem intubation; re-expansion of left lung) Allied health notes reviewed: nursing
--- NOTE | 2019-04-19 14:36 | Progress Note ---
Assessment and Plan Assessment and plan: Patient is a 29 year old woman with a history of diabetes was brought to the emergency room following a cardiac arrest. Her last well-known time was 10:30 in the morning, she was traveling with a friend, she was unresponsive in the back seat. EMS was called, CPR was started and continued here in the emergency room. Patient was intubated in the ER, noted hypotensive started on dobutamine, epinephrine and Levophed drip, given IV fluids, found to be in DKA with BG ~2200, several metabolic derangements - placed on insulin drip and admitted to ICU. BP improved and she was weaned off pressors. Still intubated on vent, minimal response. patient has been in coma for several days, no improvement. She has a DNR status order. Acute respiratory failure s/p intubated, on vent - s/p trach and peg - Tracheostomy re-adjusted on 04/17/19 - on vent, cont nebs, - s/p Trach POD 3 - Pulm following - Aspiration precautions - VAP bundle Acute anoxic encephalopathy, POA - from cardiac arrest for DM - Neurology following -MR concerning for anoxic Brain injury Cardiac arrest s/p resuscitation - likely 2/2 severe hyperglycemia - preserved EF on 2D echo Generalized Anasacara -Given a dose of Bumex DKA, severe - BG was >2200 on admission - s/p insulin drip. cont iv fluid - monitor BG q4h, on TF and on subqu insulin - adjust dose as needed Shock hypotensive +/- sepsis - resolved Now off pressors. Was on vasopressin, Levophed, Phenylephrine Sepsis with possible aspiration PNA - evident on CXR on admission with left sided infiltrates - cont abx per ID - Competed abx - Abx discontinued following notation that no evidence of liver lesion not consistent with infection per ID - Leucocytosis and thrombocytosis are likely reactive from hepatic subcapsular hematoma Head lice - multiple dosing of Permethin given - continue isolation Acute renal failure, likely vasomotor nephropathy - resolved - cont iv fluid, monitor BMP Anemia, acute on chronic - no sign of blood loss s/p 2 Units PRBC transfused Hyperkalemia, resolved with fluid and insulin Hypernatremia Resolved hypokalemia, resolved Shock liver with elevated LFT and Coagulopathy - due to cardiac arrest and hypotension - cont to monitor Liver lesion ID Physician following Discontinued abx, not consistent with infection as noted above Hypermagnesemia - monitor levels as needed Hyperphosphatemia -cont to monitor, improved Stage 1 sacral ulcer, poa - upper ext blisters - pressure ulcer prevention strategies VT Prophylaxis with Lovenox Poor prognosis DNR status Disposition: continue inpatient care, await placement CCT 31 minutes History Interval history: Patient was seen and examined. Follow-up on current diagnosis respiratory kellie lure. No overnight events reported to me.. Imaging, nursing note, chart, labs and old chart reviewed. Hospitalist Physical - Physical exam Narrative exam: Gen: On full MVS and tolerating HEENT: facial edema, atraumatic. Trach bed clean with no drainage, opens eyes spontanously Neck: supple, no JVD Heart: S1 and S2 reg, Tachycardia, no murmurs, rubs or gallop Lungs: Clear to auscultation, no rhonchi, no wheeze Abd: soft, non tender, non distended, normal BS, Ext: anasarca, leg edema, no cyanosis Neuro: Minimal responsive, does not follow commands, Skin: see full skin assessment. Stage 1 sacral ulcer - Constitutional Vitals: Temp Pulse Resp BP Pulse Ox 98.9 F 120 H 26 H 107/68 98 04/19/19 12:00 04/19/19 10:05 04/19/19 08:00 04/19/19 10:05 04/19/19 08:00 General appearance: Present: other (intubated) Results - Labs CBC & Chem 7: 04/16/19 09:06 04/16/19 09:06 Labs: Laboratory Last Values WBC 12.9 K/mm3 (4.5-11.0) H 04/16/19 09:06 RBC 2.95 M/mm3 (3.65-5.03) L 04/16/19 09:06 Hgb 9.7 gm/dl (10.1-14.3) L 04/16/19 09:06 Hct 28.9 % (30.3-42.9) L 04/16/19 09:06 MCV 98 fl (79-97) H 04/16/19 09:06 MCH 33 pg (28-32) H 04/16/19 09:06 MCHC 33 % (30-34) 04/16/19 09:06 RDW 17.7 % (13.2-15.2) H 04/16/19 09:06 Plt Count 581 K/mm3 (140-440) H 04/16/19 09:06 Lymph % (Auto) 16.9 % (13.4-35.0) 04/03/19 03:40 Bates % (Auto) 9.8 % (0.0-7.3) H 04/03/19 03:40 Eos % (Auto) 3.2 % (0.0-4.3) 04/03/19 03:40 Baso % (Auto) 0.4 % (0.0-1.8) 04/03/19 03:40 Lymph # 1.1 K/mm3 (1.2-5.4) L 04/03/19 03:40 Bates # 0.6 K/mm3 (0.0-0.8) 04/03/19 03:40 Eos # 0.2 K/mm3 (0.0-0.4) 04/03/19 03:40 Baso # 0.0 K/mm3 (0.0-0.1) 04/03/19 03:40 Add Manual Diff Complete 04/01/19 05:01 Total Counted 100 04/01/19 05:01 Seg Neutrophils % 69.7 % (40.0-70.0) 04/03/19 03:40 Seg Neuts % (Manual) 71.0 % (40.0-70.0) H 04/01/19 05:01 0 % 04/01/19 05:01 20.0 % (13.4-35.0) 04/01/19 05:01 Reactive Lymphs % (Man) 0 % 04/01/19 05:01 7.0 % (0.0-7.3) 04/01/19 05:01 2.0 % (0.0-4.3) 04/01/19 05:01 0 % (0.0-1.8) 04/01/19 05:01 0 % 04/01/19 05:01 0 % 04/01/19 05:01 0 % 04/01/19 05:01 0 % 04/01/19 05:01 Nucleated RBC % Not Reportable 04/01/19 05:01 Seg Neutrophils # 4.4 K/mm3 (1.8-7.7) 04/03/19 03:40 Seg Neutrophils # Man 4.8 K/mm3 (1.8-7.7) 04/01/19 05:01 Band Neutrophils # 0.0 K/mm3 04/01/19 05:01 1.4 K/mm3 (1.2-5.4) 04/01/19 05:01 Abs React Lymphs (Man) 0.0 K/mm3 04/01/19 05:01 0.5 K/mm3 (0.0-0.8) 04/01/19 05:01 0.1 K/mm3 (0.0-0.4) 04/01/19 05:01 0.0 K/mm3 (0.0-0.1) 04/01/19 05:01 0.0 K/mm3 04/01/19 05:01 0.0 K/mm3 04/01/19 05:01 0.0 K/mm3 04/01/19 05:01 Blast Cells # 0.0 K/mm3 04/01/19 05:01 WBC Morphology Not Reportable 04/01/19 05:01 Hypersegmented Neuts Not Reportable 04/01/19 05:01 Hyposegmented Neuts Not Reportable 04/01/19 05:01 Hypogranular Neuts Not Reportable 04/01/19 05:01 Not Reportable 04/01/19 05:01 Not Reportable 04/01/19 05:01 Not Reportable 04/01/19 05:01 Not Reportable 04/01/19 05:01 Not Reportable 04/01/19 05:01 Not Reportable 04/01/19 05:01 Not Reportable 04/01/19 05:01 Not Reportable 04/01/19 05:01 Plt Clumps, EDTA Not Reportable 04/01/19 05:01 Not Reportable 04/01/19 05:01 Not Reportable 04/01/19 05:01 Not Reportable 04/01/19 05:01 Plt Morphology Comment Not Reportable 04/01/19 05:01 RBC Morphology Normal 04/01/19 05:01 Dimorphic RBCs Not Reportable 04/01/19 05:01 Not Reportable 04/01/19 05:01 Not Reportable 04/01/19 05:01 Not Reportable 04/01/19 05:01 Not Reportable 04/01/19 05:01 Not Reportable 04/01/19 05:01 Not Reportable 04/01/19 05:01 Not Reportable 04/01/19 05:01 Not Reportable 04/01/19 05:01 Not Reportable 04/01/19 05:01 Not Reportable 04/01/19 05:01 Not Reportable 04/01/19 05:01 Not Reportable 04/01/19 05:01 Not Reportable 04/01/19 05:01 Not Reportable 04/01/19 05:01 Not Reportable 04/01/19 05:01 Not Reportable 04/01/19 05:01 Not Reportable 04/01/19 05:01 Not Reportable 04/01/19 05:01 Not Reportable 04/01/19 05:01 Acanthocytes (Spur) Not Reportable 04/01/19 05:01 Rouleaux Not Reportable 04/01/19 05:01 Not Reportable 04/01/19 05:01 Not Reportable 04/01/19 05:01 Not Reportable 04/01/19 05:01 Not Reportable 04/01/19 05:01 Hem Pathologist Commnt No 04/01/19 05:01 PT 13.9 Sec. (12.2-14.9) 04/01/19 17:14 INR 1.10 (0.87-1.13) 04/01/19 17:14 APTT 74.5 Sec. (24.2-36.6) H* 03/29/19 19:20 313 mg/dl (211-480) 04/01/19 17:14 4526.86 ng/mlDDU (0-234) H 04/06/19 00:06 Heparin Anti-Xa, Unfract Negative (Negative) 03/31/19 15:00 POC ABG pH 7.565 (7.35-7.45) H 04/19/19 04:35 ABG pH 7.396 pH Units (7.350-7.450) 04/03/19 05:35 POC ABG pCO2 36.2 (35-45) 04/19/19 04:35 ABG pCO2 32.2 mm Hg 04/03/19 05:35 POC ABG pO2 88 (80-105) 04/19/19 04:35 ABG pO2 97.7 mm Hg (80.0-90.0) H 04/03/19 05:35 POC ABG HCO3 32.8 (22-26 mml/L) 04/19/19 04:35 ABG HCO3 19.3 mmol/L (20.0-26.0) L 04/03/19 05:35 POC ABG Total CO2 34 (23-27mmol/L) 04/19/19 04:35 POC ABG O2 Sat 98 04/19/19 04:35 ABG O2 Saturation 97.6 % (95.0-99.0) 04/03/19 05:35 ABG O2 Content 10.9 (0.0-44) 04/03/19 05:35 POC ABG Base Excess 11 ((-2) - (+3)mmol/L) 04/19/19 04:35 ABG Base Excess -5.0 mmol/L (-2.0-3.0) L 04/03/19 05:35 ABG Hemoglobin 8.0 gm/dl (12.0-16.0) L 04/03/19 05:35 ABG Carboxyhemoglobin 2.1 % (0.0-5.0) 04/03/19 05:35 ABG Methemoglobin 0.5 % (0.0-1.5) 04/03/19 05:35 VBG pH 6.800 (7.320-7.420) L* 03/29/19 19:47 95.1 % (95.0-99.0) 04/03/19 05:35 40 % 04/19/19 04:35 Sodium 137 mmol/L (137-145) 04/16/19 09:06 Potassium 4.7 mmol/L (3.6-5.0) 04/16/19 09:06 Chloride 98.1 mmol/L (98-107) 04/16/19 09:06 Carbon Dioxide 31 mmol/L (22-30) H 04/16/19 09:06 13 mmol/L 04/16/19 09:06 BUN 10 mg/dL (7-17) 04/16/19 09:06 0.2 mg/dL (0.7-1.2) L 04/16/19 09:06 Estimated GFR > 60 ml/min 04/16/19 09:06 50 % 04/16/19 09:06 Glucose 155 mg/dL (65-100) H 04/16/19 09:06 POC Glucose 271 (70-105) H 04/19/19 12:26 Lactic Acid 3.30 mmol/L (0.7-2.0) H* 03/31/19 07:50 Calcium 8.9 mg/dL (8.4-10.2) 04/16/19 09:06 Phosphorus 4.10 mg/dL (2.5-4.5) 04/09/19 16:25 Magnesium 1.80 mg/dL (1.7-2.3) 04/09/19 16:25 Iron 26 ug/dL (37-170) L 03/31/19 08:20 TIBC 193 mcg/dL (250-450) L 03/31/19 08:20 0.60 mg/dL (0.1-1.2) 04/03/19 03:40 0.2 mg/dL (0-0.2) 04/02/19 07:48 0.5 mg/dL 04/02/19 07:48 AST 594 units/L (5-40) H 04/03/19 03:40 ALT 861 units/L (7-56) H 04/03/19 03:40 299 units/L (35-129) H 04/03/19 03:40 2465 units/L (30-135) H 03/30/19 05:26 CK-MB (CK-2) 52.7 ng/mL (0.0-4.0) H 03/30/19 05:26 CK-MB (CK-2) Rel Index 2.1 (0-4) 03/30/19 05:26 < 0.010 ng/mL (0.00-0.029) 04/06/19 05:20 2.40 mg/dL (0.00-1.30) H 03/30/19 12:57 4.4 g/dL (6.3-8.2) L 04/03/19 03:40 2.1 g/dL (3.9-5) L 04/03/19 03:40 0.9 % 04/03/19 03:40 See scanned result 03/31/19 15:00 Vitamin B12 > 2000 pg/mL (211-911) H 03/31/19 08:20 > 20 ng/mL (7.3-26.0) 03/31/19 08:20 HCG, Qual Negative (Negative) 03/29/19 19:20 Yellow (Yellow) 03/29/19 23:10 Slightly-cloudy (Clear) 03/29/19 23:10 6.0 (5.0-7.0) 03/29/19 23:10 Ur Specific [place] 1.021 (1.003-1.030) 03/29/19 23:10 100 mg/dl mg/dL (Negative) 03/29/19 23:10 >=500 mg/dL (Negative) 03/29/19 23:10 20 mg/dL (Negative) 03/29/19 23:10 Lg (Negative) 03/29/19 23:10 Neg (Negative) 03/29/19 23:10 Neg (Negative) 03/29/19 23:10 < 2.0 mg/dL (<2.0) 03/29/19 23:10 Ur Leukocyte Esterase Neg (Negative) 03/29/19 23:10 1.0 /HPF (0.0-6.0) 03/29/19 23:10 1.0 /HPF (0.0-6.0) 03/29/19 23:10 Few /HPF 03/29/19 23:10 Salicylates 0.8 mg/dL (2.8-20.0) L 03/30/19 Unknown Presumptive negative 03/29/19 23:10 Presumptive negative 03/29/19 23:10 Acetaminophen < 5.0 ug/mL (10.0-30.0) L 03/30/19 Unknown Ur Barbiturates Screen Presumptive negative 03/29/19 23:10 Ur Phencyclidine Scrn Presumptive negative 03/29/19 23:10 Ur Amphetamines Screen Presumptive negative 03/29/19 23:10 U Benzodiazepines Scrn Presumptive negative 03/29/19 23:10 Presumptive negative 03/29/19 23:10 U Marijuana (THC) Screen Presumptive negative 03/29/19 23:10 Disclamer 03/29/19 23:10 Heparin-induced Plt Ab Negative (Negative) 03/31/19 15:00 UF Heparin High Dose 0 % Release 03/31/19 15:00 FABIAN UFH Low Dose 0.1 0 % Release 03/31/19 15:00 FABIAN UFH Low Dose 0.5 0 % Release 03/31/19 15:00 Hepatitis A IgM Ab Non-reactive (NonReactive) 03/30/19 Unknown Hep Bs Antigen Non-reactive (Negative) 03/30/19 Unknown Hep B Core IgM Ab Non-reactive (NonReactive) 03/30/19 Unknown Non-reactive (NonReactive) 03/30/19 Unknown Flexitest 1 H 03/30/19 14:00 Blood Type O POSITIVE 03/30/19 03:30 Antibody Screen Negative 03/30/19 03:30 Crossmatch See Detail 03/30/19 03:30 Active Medications - Current Medications Current Medications: Generic Name Dose Route Start Last Admin Trade Name Freq PRN Reason Stop Dose Admin Acetaminophen 650 mg 03/29/19 23:34 04/01/19 23:38 Tylenol PO 650 mg Q4H PRN Administration Pain MILD(1-3)/Fever >100.5/WARE Lipase/Protease/Amylase 1 each 04/02/19 11:[address] 10,500 Unit FEEDTUBE PRN PRN For Clogged Feeding Tube Dextrose 0 ml 03/29/19 20:33 04/15/19 23:36 D50w (25gm) Syringe IV 20 ml PRN PRN Administration Hypoglycemia Enoxaparin Sodium 40 mg 04/14/19 10:00 04/19/19 10:07 Lovenox SUB-Q 40 mg QDAY@1000 ZAMZAM Administration Famotidine 20 mg 04/02/19 10:00 04/19/19 10:05 Pepcid PO 20 mg BID ZAMZAM Administration Fentanyl 50 mcg 04/05/19 11:00 04/19/19 02:13 Sublimaze IV 50 mcg Q2H PRN Administration Pain , Severe (7-10)/AGITATION Fentanyl 25 mcg 04/14/19 14:00 04/17/19 14:10 Duragesic TD 25 mcg Q3D ZAMZAM Administration Hydrophilic Ointment 1 applic 03/30/19 11:24 Vaseline Lip Therapy TP Q2HR PRN Dry Lips Insulin Glargine 20 units 04/09/19 22:00 04/18/19 21:14 Lantus SUB-Q 20 units QHS ZAMZAM Administration Insulin Human Regular 0 units 04/09/19 12:00 04/19/19 12:30 Humulin R SUB-Q 4 units Q6HR ZAMZAM Administration Protocol Levetiracetam 500 mg 04/03/19 10:00 04/19/19 10:05 Keppra PO 500 mg BID ZAMZAM Administration Metoprolol Tartrate 5 mg 04/14/19 13:06 04/18/19 18:42 Lopressor IV 5 mg Q6HR PRN Administration Tachyarrhythmias Metoprolol Tartrate 25 mg 04/16/19 10:00 04/19/19 10:05 Lopressor PO 25 mg BID ZAMZAM Administration Multi-Ingred Cream/Lotion/Oil/Oint 1 applic 03/30/19 11:24 04/06/19 11:39 Artificial Tears Ophth Oint OU 1 applic Q4HR PRN Administration Dry Eye(s) Ondansetron HCl 4 mg 03/29/19 23:34 Zofran IV Q8H PRN Nausea And Vomiting Scopolamine 1 each 04/17/19 12:00 04/17/19 12:48 Transderm-Scop TD 1 each Q3D ZAMZAM Administration Simple Syrup 15 ml 04/02/19 11:44 04/14/19 01:53 Simple Syrup FEEDTUBE 15 ml PRN PRN Administration Hypoglycemia Simple Syrup 30 ml 04/02/19 11:44 Simple Syrup FEEDTUBE PRN PRN Hypoglycemia Sodium Bicarbonate 325 mg 04/02/19 11:44 Sodium Bicarbonate FEEDTUBE PRN PRN For Clogged Feeding Tube Sodium Chloride 10 ml 03/30/19 10:00 04/19/19 10:07 Sodium Chloride Flush Syringe 10 Ml IV 10 ml BID ZAMZAM Administration Sodium Chloride 10 ml 03/29/19 23:34 Sodium Chloride Flush Syringe 10 Ml IV PRN PRN LINE FLUSH Nutrition/Malnutrition Assess - Dietary Evaluation Nutrition/Malnutrition Findings: Nutrition Notes Start: 03/30/19 13:14 Freq: Status: Active Protocol: Document 04/18/19 10:55 LM (Rec: 04/18/19 11:07 LM [id number]) Nutrition Notes Initial or Follow up Reassessment Current Diagnosis Acute Kidney Injury,Diabetes, Sepsis,Respiratory Failure Other Pertinent Diagnosis s/p trach & PEG, s/p cardiac arrest, DKA, ARF, Shock liver Current Diet Glucerna 1.2 at 50 ml/hr Labs/Tests POC glu 149 Pertinent Medications Reviewed Height 5 ft Weight 42.5 kg [place] Body Weight (kg) 45.45 BMI 18.3 Subjective/Other Information Glucerna running at 50 ml/hr via PEG. Per RN pt is tolerating TF. Percent of energy/protein needs met: 97%/100% Burn Absent Trauma Absent #1 Nutrition Diagnosis Inadequate oral intake Diagnosis Progress(for reassessment Continues documentation) Is patient on ventilator? Yes Is Patient Ambulatory and/or Out of Bed No REE-([facility]-confined to bed) 1276.272 Kcal/Kg value to use for calculation 35 Approximate Energy Requirements Using 1488 kcal/Kg Calculation Used for Recommendations [facility] Additional Notes Protein: 1.2-2g/k-86g/day Fluids: 1ml/kcal Nutrition Intervention Change Diet Order: Continue TF Nutrition Support: Glucerna 1.2 at 50ml/hr with 80ml water flush q4h. Kcal 1,440 Protein (gm) 72 Fluid (mL) 966 Goal #1 Meet at least 75% of energy and protein needs Follow-Up By: 04/25/19 Additional Comments F/U for TF tolerance/rate
[2019-04-19] MEDS: LANTUS SUB-Q SCH (21:03)
[2019-04-20] MEDS: HumuLIN R SUB-Q SCH ×4 (00:38→17:44)
--- NOTE | 2019-04-20 08:35 | Progress Note ---
Assessment and Plan Assessment and plan: Patient is a 29 year old woman with a history of diabetes was brought to the emergency room following a cardiac arrest. Her last well-known time was 10:30 in the morning, she was traveling with a friend, she was unresponsive in the back seat. EMS was called, CPR was started and continued here in the emergency room. Patient was intubated in the ER, noted hypotensive started on dobutamine, epinephrine and Levophed drip, given IV fluids, found to be in DKA with BG ~2200, several metabolic derangements - placed on insulin drip and admitted to ICU. BP improved and she was weaned off pressors. Still intubated on vent, minimal response. patient has been in coma for several days, no improvement. She has a DNR status order. Acute respiratory failure s/p intubated, off vent - s/p trach and peg - Tracheostomy re-adjusted on 04/17/19 - on vent, cont nebs, - s/p Trach POD 3 - Pulm following - Aspiration precautions - VAP bundle Acute anoxic encephalopathy, POA - from cardiac arrest for DM - Neurology following -MR concerning for anoxic Brain injury Cardiac arrest s/p resuscitation - likely 2/2 severe hyperglycemia - preserved EF on 2D echo Generalized Anasacara -Given a dose of Bumex DKA, severe - BG was >2200 on admission - s/p insulin drip. cont iv fluid - monitor BG q4h, on TF and on subqu insulin - adjust dose as needed Shock hypotensive +/- sepsis - resolved Now off pressors. Was on vasopressin, Levophed, Phenylephrine Sepsis with possible aspiration PNA - evident on CXR on admission with left sided infiltrates - cont abx per ID - Competed abx - Abx discontinued following notation that no evidence of liver lesion not consistent with infection per ID - Leucocytosis and thrombocytosis are likely reactive from hepatic subcapsular hematoma Head lice - multiple dosing of Permethin given - continue isolation Acute renal failure, likely vasomotor nephropathy - resolved - cont iv fluid, monitor BMP Anemia, acute on chronic - no sign of blood loss s/p 2 Units PRBC transfused Hyperkalemia, resolved with fluid and insulin Hypernatremia Resolved hypokalemia, resolved Shock liver with elevated LFT and Coagulopathy - due to cardiac arrest and hypotension - cont to monitor Liver lesion ID Physician following Discontinued abx, not consistent with infection as noted above Hypermagnesemia - monitor levels as needed Hyperphosphatemia -cont to monitor, improved Stage 1 sacral ulcer, poa - upper ext blisters - pressure ulcer prevention strategies VT Prophylaxis with Lovenox Poor prognosis DNR status Disposition: continue inpatient care, await placement History Interval history: Patient was seen and examined. Follow-up on current diagnosis respiratory failure. No overnight events reported to me.. Imaging, nursing note, chart, labs and old chart reviewed. Hospitalist Physical - Physical exam Narrative exam: Gen: On full MVS and tolerating HEENT: facial edema, atraumatic. Trach bed clean with no drainage, opens eyes spontanously Neck: supple, no JVD Heart: S1 and S2 reg, Tachycardia, no murmurs, rubs or gallop Lungs: Clear to auscultation, no rhonchi, no wheeze Abd: soft, non tender, non distended, normal BS, Ext: anasarca, leg edema, no cyanosis Neuro: Minimal responsive, does not follow commands, Skin: see full skin assessment. Stage 1 sacral ulcer - Constitutional Vitals: Temp Pulse Resp BP Pulse Ox 99.8 F H 118 H 39 H 116/79 96 04/20/19 03:56 04/20/19 07:00 04/20/19 07:00 04/20/19 07:00 04/20/19 07:00 General appearance: Present: other (intubated) Results - Labs CBC & Chem 7: 04/16/19 09:06 04/16/19 09:06 Labs: Laboratory Last Values WBC 12.9 K/mm3 (4.5-11.0) H 04/16/19 09:06 RBC 2.95 M/mm3 (3.65-5.03) L 04/16/19 09:06 Hgb 9.7 gm/dl (10.1-14.3) L 04/16/19 09:06 Hct 28.9 % (30.3-42.9) L 04/16/19 09:06 MCV 98 fl (79-97) H 04/16/19 09:06 MCH 33 pg (28-32) H 04/16/19 09:06 MCHC 33 % (30-34) 04/16/19 09:06 RDW 17.7 % (13.2-15.2) H 04/16/19 09:06 Plt Count 581 K/mm3 (140-440) H 04/16/19 09:06 Lymph % (Auto) 16.9 % (13.4-35.0) 04/03/19 03:40 [place] % (Auto) 9.8 % (0.0-7.3) H 04/03/19 03:40 Eos % (Auto) 3.2 % (0.0-4.3) 04/03/19 03:40 Baso % (Auto) 0.4 % (0.0-1.8) 04/03/19 03:40 Lymph # 1.1 K/mm3 (1.2-5.4) L 04/03/19 03:40 [place] # 0.6 K/mm3 (0.0-0.8) 04/03/19 03:40 Eos # 0.2 K/mm3 (0.0-0.4) 04/03/19 03:40 Baso # 0.0 K/mm3 (0.0-0.1) 04/03/19 03:40 Add Manual Diff Complete 04/01/19 05:01 Total Counted 100 04/01/19 05:01 Seg Neutrophils % 69.7 % (40.0-70.0) 04/03/19 03:40 Seg Neuts % (Manual) 71.0 % (40.0-70.0) H 04/01/19 05:01 0 % 04/01/19 05:01 20.0 % (13.4-35.0) 04/01/19 05:01 Reactive Lymphs % (Man) 0 % 04/01/19 05:01 7.0 % (0.0-7.3) 04/01/19 05:01 2.0 % (0.0-4.3) 04/01/19 05:01 0 % (0.0-1.8) 04/01/19 05:01 0 % 04/01/19 05:01 0 % 04/01/19 05:01 0 % 04/01/19 05:01 0 % 04/01/19 05:01 Nucleated RBC % Not Reportable 04/01/19 05:01 Seg Neutrophils # 4.4 K/mm3 (1.8-7.7) 04/03/19 03:40 Seg Neutrophils # Man 4.8 K/mm3 (1.8-7.7) 04/01/19 05:01 Band Neutrophils # 0.0 K/mm3 04/01/19 05:01 1.4 K/mm3 (1.2-5.4) 04/01/19 05:01 Abs React Lymphs (Man) 0.0 K/mm3 04/01/19 05:01 0.5 K/mm3 (0.0-0.8) 04/01/19 05:01 0.1 K/mm3 (0.0-0.4) 04/01/19 05:01 0.0 K/mm3 (0.0-0.1) 04/01/19 05:01 0.0 K/mm3 04/01/19 05:01 0.0 K/mm3 04/01/19 05:01 0.0 K/mm3 04/01/19 05:01 Blast Cells # 0.0 K/mm3 04/01/19 05:01 WBC Morphology Not Reportable 04/01/19 05:01 Hypersegmented Neuts Not Reportable 04/01/19 05:01 Hyposegmented Neuts Not Reportable 04/01/19 05:01 Hypogranular Neuts Not Reportable 04/01/19 05:01 Not Reportable 04/01/19 05:01 Not Reportable 04/01/19 05:01 Not Reportable 04/01/19 05:01 Not Reportable 04/01/19 05:01 Not Reportable 04/01/19 05:01 Not Reportable 04/01/19 05:01 Not Reportable 04/01/19 05:01 Not Reportable 04/01/19 05:01 Plt Clumps, EDTA Not Reportable 04/01/19 05:01 Not Reportable 04/01/19 05:01 Not Reportable 04/01/19 05:01 Not Reportable 04/01/19 05:01 Plt Morphology Comment Not Reportable 04/01/19 05:01 RBC Morphology Normal 04/01/19 05:01 Dimorphic RBCs Not Reportable 04/01/19 05:01 Not Reportable 04/01/19 05:01 Not Reportable 04/01/19 05:01 Not Reportable 04/01/19 05:01 Not Reportable 04/01/19 05:01 Not Reportable 04/01/19 05:01 Not Reportable 04/01/19 05:01 Not Reportable 04/01/19 05:01 Not Reportable 04/01/19 05:01 Not Reportable 04/01/19 05:01 Not Reportable 04/01/19 05:01 Not Reportable 04/01/19 05:01 Not Reportable 04/01/19 05:01 Not Reportable 04/01/19 05:01 Not Reportable 04/01/19 05:01 Not Reportable 04/01/19 05:01 Not Reportable 04/01/19 05:01 Not Reportable 04/01/19 05:01 Not Reportable 04/01/19 05:01 Not Reportable 04/01/19 05:01 Acanthocytes (Spur) Not Reportable 04/01/19 05:01 Rouleaux Not Reportable 04/01/19 05:01 Not Reportable 04/01/19 05:01 Not Reportable 04/01/19 05:01 Not Reportable 04/01/19 05:01 Not Reportable 04/01/19 05:01 Hem Pathologist Commnt No 04/01/19 05:01 PT 13.9 Sec. (12.2-14.9) 04/01/19 17:14 INR 1.10 (0.87-1.13) 04/01/19 17:14 APTT 74.5 Sec. (24.2-36.6) H* 03/29/19 19:20 313 mg/dl (211-480) 04/01/19 17:14 4526.86 ng/mlDDU (0-234) H 04/06/19 00:06 Heparin Anti-Xa, Unfract Negative (Negative) 03/31/19 15:00 POC ABG pH 7.565 (7.35-7.45) H 04/19/19 04:35 ABG pH 7.396 pH Units (7.350-7.450) 04/03/19 05:35 POC ABG pCO2 36.2 (35-45) 04/19/19 04:35 ABG pCO2 32.2 mm Hg 04/03/19 05:35 POC ABG pO2 88 (80-105) 04/19/19 04:35 ABG pO2 97.7 mm Hg (80.0-90.0) H 04/03/19 05:35 POC ABG HCO3 32.8 (22-26 mml/L) 04/19/19 04:35 ABG HCO3 19.3 mmol/L (20.0-26.0) L 04/03/19 05:35 POC ABG Total CO2 34 (23-27mmol/L) 04/19/19 04:35 POC ABG O2 Sat 98 04/19/19 04:35 ABG O2 Saturation 97.6 % (95.0-99.0) 04/03/19 05:35 ABG O2 Content 10.9 (0.0-44) 04/03/19 05:35 POC ABG Base Excess 11 ((-2) - (+3)mmol/L) 04/19/19 04:35 ABG Base Excess -5.0 mmol/L (-2.0-3.0) L 04/03/19 05:35 ABG Hemoglobin 8.0 gm/dl (12.0-16.0) L 04/03/19 05:35 ABG Carboxyhemoglobin 2.1 % (0.0-5.0) 04/03/19 05:35 ABG Methemoglobin 0.5 % (0.0-1.5) 04/03/19 05:35 VBG pH 6.800 (7.320-7.420) L* 03/29/19 19:47 95.1 % (95.0-99.0) 04/03/19 05:35 40 % 04/19/19 04:35 Sodium 137 mmol/L (137-145) 04/16/19 09:06 Potassium 4.7 mmol/L (3.6-5.0) 04/16/19 09:06 Chloride 98.1 mmol/L (98-107) 04/16/19 09:06 Carbon Dioxide 31 mmol/L (22-30) H 04/16/19 09:06 13 mmol/L 04/16/19 09:06 BUN 10 mg/dL (7-17) 04/16/19 09:06 0.2 mg/dL (0.7-1.2) L 04/16/19 09:06 Estimated GFR > 60 ml/min 04/16/19 09:06 50 % 04/16/19 09:06 Glucose 155 mg/dL (65-100) H 04/16/19 09:06 POC Glucose 289 (70-105) H 04/20/19 05:42 Lactic Acid 3.30 mmol/L (0.7-2.0) H* 03/31/19 07:50 Calcium 8.9 mg/dL (8.4-10.2) 04/16/19 09:06 Phosphorus 4.10 mg/dL (2.5-4.5) 04/09/19 16:25 Magnesium 1.80 mg/dL (1.7-2.3) 04/09/19 16:25 Iron 26 ug/dL (37-170) L 03/31/19 08:20 TIBC 193 mcg/dL (250-450) L 03/31/19 08:20 0.60 mg/dL (0.1-1.2) 04/03/19 03:40 0.2 mg/dL (0-0.2) 04/02/19 07:48 0.5 mg/dL 04/02/19 07:48 AST 594 units/L (5-40) H 04/03/19 03:40 ALT 861 units/L (7-56) H 04/03/19 03:40 299 units/L (35-129) H 04/03/19 03:40 2465 units/L (30-135) H 03/30/19 05:26 CK-MB (CK-2) 52.7 ng/mL (0.0-4.0) H 03/30/19 05:26 CK-MB (CK-2) Rel Index 2.1 (0-4) 03/30/19 05:26 < 0.010 ng/mL (0.00-0.029) 04/06/19 05:20 2.40 mg/dL (0.00-1.30) H 03/30/19 12:57 4.4 g/dL (6.3-8.2) L 04/03/19 03:40 2.1 g/dL (3.9-5) L 04/03/19 03:40 0.9 % 04/03/19 03:40 See scanned result 03/31/19 15:00 Vitamin B12 > 2000 pg/mL (211-911) H 03/31/19 08:20 > 20 ng/mL (7.3-26.0) 03/31/19 08:20 HCG, Qual Negative (Negative) 03/29/19 19:20 Yellow (Yellow) 03/29/19 23:10 Slightly-cloudy (Clear) 03/29/19 23:10 6.0 (5.0-7.0) 03/29/19 23:10 Ur Specific Candor 1.021 (1.003-1.030) 03/29/19 23:10 100 mg/dl mg/dL (Negative) 03/29/19 23:10 >=500 mg/dL (Negative) 03/29/19 23:10 20 mg/dL (Negative) 03/29/19 23:10 Lg (Negative) 03/29/19 23:10 Neg (Negative) 03/29/19 23:10 Neg (Negative) 03/29/19 23:10 < 2.0 mg/dL (<2.0) 03/29/19 23:10 Ur Leukocyte Esterase Neg (Negative) 03/29/19 23:10 1.0 /HPF (0.0-6.0) 03/29/19 23:10 1.0 /HPF (0.0-6.0) 03/29/19 23:10 Few /HPF 03/29/19 23:10 Salicylates 0.8 mg/dL (2.8-20.0) L 03/30/19 Unknown Presumptive negative 03/29/19 23:10 Presumptive negative 03/29/19 23:10 Acetaminophen < 5.0 ug/mL (10.0-30.0) L 03/30/19 Unknown Ur Barbiturates Screen Presumptive negative 03/29/19 23:10 Ur Phencyclidine Scrn Presumptive negative 03/29/19 23:10 Ur Amphetamines Screen Presumptive negative 03/29/19 23:10 U Benzodiazepines Scrn Presumptive negative 03/29/19 23:10 Presumptive negative 03/29/19 23:10 U Marijuana (THC) Screen Presumptive negative 03/29/19 23:10 Disclamer 03/29/19 23:10 Heparin-induced Plt Ab Negative (Negative) 03/31/19 15:00 UF Heparin High Dose 0 % Release 03/31/19 15:00 FABIAN UFH Low Dose 0.1 0 % Release 03/31/19 15:00 FABIAN UFH Low Dose 0.5 0 % Release 03/31/19 15:00 Hepatitis A IgM Ab Non-reactive (NonReactive) 03/30/19 Unknown Hep Bs Antigen Non-reactive (Negative) 03/30/19 Unknown Hep B Core IgM Ab Non-reactive (NonReactive) 03/30/19 Unknown Non-reactive (NonReactive) 03/30/19 Unknown Flexitest 1 H 03/30/19 14:00 Blood Type O POSITIVE 03/30/19 03:30 Antibody Screen Negative 03/30/19 03:30 Crossmatch See Detail 03/30/19 03:30 Active Medications - Current Medications Current Medications: Generic Name Dose Route Start Last Admin Trade Name Freq PRN Reason Stop Dose Admin Acetaminophen 650 mg 03/29/19 23:34 04/01/19 23:38 Tylenol PO 650 mg Q4H PRN Administration Pain MILD(1-3)/Fever >100.5/WARE Lipase/Protease/Amylase 1 each 04/02/19 11:[address] 10,500 Unit FEEDTUBE PRN PRN For Clogged Feeding Tube Dextrose 0 ml 03/29/19 20:33 04/15/19 23:36 D50w (25gm) Syringe IV 20 ml PRN PRN Administration Hypoglycemia Enoxaparin Sodium 40 mg 04/14/19 10:00 04/19/19 10:07 Lovenox SUB-Q 40 mg QDAY@1000 ZAMZAM Administration Famotidine 20 mg 04/02/19 10:00 04/19/19 21:02 Pepcid PO 20 mg BID ZAMZAM Administration Fentanyl 50 mcg 04/05/19 11:00 04/19/19 02:13 Sublimaze IV 50 mcg Q2H PRN Administration Pain , Severe (7-10)/AGITATION Fentanyl 25 mcg 04/14/19 14:00 04/17/19 14:10 Duragesic TD 25 mcg Q3D ZAMZAM Administration Hydrophilic Ointment 1 applic 03/30/19 11:24 Vaseline Lip Therapy TP Q2HR PRN Dry Lips Insulin Glargine 20 units 04/09/19 22:00 04/19/19 21:03 Lantus SUB-Q 20 units QHS ZAMZAM Administration Insulin Human Regular 0 units 04/09/19 12:00 04/20/19 07:09 Humulin R SUB-Q 4 units Q6HR ZAMZAM Administration Protocol Levetiracetam 500 mg 04/03/19 10:00 04/19/19 21:02 Keppra PO 500 mg BID ZAMZAM Administration Metoprolol Tartrate 5 mg 04/14/19 13:06 04/18/19 18:42 Lopressor IV 5 mg Q6HR PRN Administration Tachyarrhythmias Metoprolol Tartrate 25 mg 04/16/19 10:00 04/19/19 21:02 Lopressor PO 25 mg BID ZAMZAM Administration Multi-Ingred Cream/Lotion/Oil/Oint 1 applic 03/30/19 11:24 04/06/19 11:39 Artificial Tears Ophth Oint OU 1 applic Q4HR PRN Administration Dry Eye(s) Ondansetron HCl 4 mg 03/29/19 23:34 Zofran IV Q8H PRN Nausea And Vomiting Scopolamine 1 each 04/17/19 12:00 04/17/19 12:48 Transderm-Scop TD 1 each Q3D ZAMZAM Administration Simple Syrup 15 ml 04/02/19 11:44 04/14/19 01:53 Simple Syrup FEEDTUBE 15 ml PRN PRN Administration Hypoglycemia Simple Syrup 30 ml 04/02/19 11:44 Simple Syrup FEEDTUBE PRN PRN Hypoglycemia Sodium Bicarbonate 325 mg 04/02/19 11:44 Sodium Bicarbonate FEEDTUBE PRN PRN For Clogged Feeding Tube Sodium Chloride 10 ml 03/30/19 10:00 04/19/19 21:03 Sodium Chloride Flush Syringe 10 Ml IV 10 ml BID ZAMZAM Administration Sodium Chloride 10 ml 03/29/19 23:34 Sodium Chloride Flush Syringe 10 Ml IV PRN PRN LINE FLUSH Nutrition/Malnutrition Assess - Dietary Evaluation Nutrition/Malnutrition Findings: Nutrition Notes Start: 03/30/19 13:14 Freq: Status: Active Protocol: Document 04/18/19 10:55 LM (Rec: 04/18/19 11:07 LM [id number]) Nutrition Notes Initial or Follow up Reassessment Current Diagnosis Acute Kidney Injury,Diabetes, Sepsis,Respiratory Failure Other Pertinent Diagnosis s/p trach & PEG, s/p cardiac arrest, DKA, ARF, Shock liver Current Diet Glucerna 1.2 at 50 ml/hr Labs/Tests POC glu 149 Pertinent Medications Reviewed Height 5 ft Weight 42.5 kg [place] Body Weight (kg) 45.45 BMI 18.3 Subjective/Other Information Glucerna running at 50 ml/hr via PEG. Per RN pt is tolerating TF. Percent of energy/protein needs met: 97%/100% Burn Absent Trauma Absent #1 Nutrition Diagnosis Inadequate oral intake Diagnosis Progress(for reassessment Continues documentation) Is patient on ventilator? Yes Is Patient Ambulatory and/or Out of Bed No REE-([place]-confined to bed) 1276.272 Kcal/Kg value to use for calculation 35 Approximate Energy Requirements Using 1488 kcal/Kg Calculation Used for Recommendations [facility] Additional Notes Protein: 1.2-2g/k-86g/day Fluids: 1ml/kcal Nutrition Intervention Change Diet Order: Continue TF Nutrition Support: Glucerna 1.2 at 50ml/hr with 80ml water flush q4h. Kcal 1,440 Protein (gm) 72 Fluid (mL) 966 Goal #1 Meet at least 75% of energy and protein needs Follow-Up By: 04/25/19 Additional Comments F/U for TF tolerance/rate
[2019-04-20] MEDS: PEPCID PO SCH ×2 (09:20→21:59)
[2019-04-20] MEDS: ENOXAPARIN SUB-Q SCH (09:20)
[2019-04-20] MEDS: METOPROLOL PO SCH ×2 (09:20→21:58)
[2019-04-20] MEDS: KEPPRA PO SCH ×2 (09:20→21:56)
[2019-04-20] MEDS: SODIUM CHLORIDE FLUSH SYRINGE 10 ML IV SCH ×2 (09:21→22:01)
--- NOTE | 2019-04-20 09:25 | Progress Note ---
Assessment and Plan Acute hypoxemic respiratory failure, s/p trach to ATP Acute toxic metabolic encephalopathy; MRI consistent with diffuse anoxic injury Diabetic ketoacidosis, resolved. Severe sepsis with shock, resolved Possible aspiration pneumonia. History of polysubstance abuse. Leukocytosis. Elevated serum transaminases, possible shock liver. Hyponatremia related to her severe hyperglycemia. Anemia that is macrocytic. History of seizure disorder. Severe metabolic acidosis-resolved Acute kidney injury, possibly on chronic -trach care, airway clearance techniques- add scopolamine patch -start bronchodilators with pulmonary hygiene per RT - continue to wean supplemental O2 to keep O2 sats > 90% - VTE prophylaxis-enoxaparin - Stress ulcer prophylaxis - continue accuchecks with glycemic control per SSI for target blood glucose 140-180 mg/dL - continue Keppra for seizures - continue mobility protocols / off loading for pressure ulcer prevention - continue other care per attending / other consultants -discharge planning CONDITION: FAIR PROGNOSIS: POOR CODE STATUS:DNAR Subjective Date of service: 04/20/19 Principal diagnosis: Ac Hypoxemic Resp Failure; DKA; Severe sepsis with shock; ANGELICA Interval history: Patient is seen today for: Acute Hypoxemic Resp Failure; Ac toxic metabolic encephalopathy; DKA; Severe sepsis with shock; Possible aspiration pneumonia; History of polysubstance abuse; History of seizure disorder; Acute kidney injury, possibly on chronic Seen and examined at bedside; 24hour events reviewed; nursing and respiratory care staff consulted; no adverse overnight events reported to me; resting peacefully in bed; AMS is persistent; s/p trachesotomy to ATP no emesis or overt aspiration and no high grade fevers. Copious white secretions, strong cough Vitals, labs,medications, chart reviewed. Objective Vital Signs - 12hr 04/19/19 04/19/19 04/19/19 22:00 23:00 23:15 Temperature 99.4 F Pulse Rate 103 H 105 H Pulse Rate [ From Monitor] Respiratory 32 H 31 H Rate Blood Pressure 112/81 105/77 O2 Sat by Pulse 94 94 Oximetry O2 Sat by Pulse Oximetry [ Assessment] 04/19/19 04/20/19 04/20/19 23:46 00:00 00:31 Temperature Pulse Rate 104 H 115 H Pulse Rate [ 108 H From Monitor] Respiratory 27 H 22 Rate Blood Pressure 93/63 107/71 O2 Sat by Pulse 97 96 Oximetry O2 Sat by Pulse 97 Oximetry [ Assessment] 04/20/19 04/20/19 04/20/19 01:00 02:00 03:00 Temperature Pulse Rate 116 H 114 H 117 H Pulse Rate [ From Monitor] Respiratory 35 H 30 H 31 H Rate Blood Pressure 97/61 96/63 99/66 O2 Sat by Pulse 92 92 95 Oximetry O2 Sat by Pulse Oximetry [ Assessment] 04/20/19 04/20/19 04/20/19 03:56 04:00 04:15 Temperature 99.8 F H Pulse Rate 120 H Pulse Rate [ 100 H From Monitor] Respiratory 33 H Rate Blood Pressure 102/64 O2 Sat by Pulse 95 96 Oximetry O2 Sat by Pulse 96 Oximetry [ Assessment] 04/20/19 04/20/19 04/20/19 05:00 06:00 07:00 Temperature Pulse Rate 120 H 116 H 118 H Pulse Rate [ From Monitor] Respiratory 40 H 28 H 39 H Rate Blood Pressure 118/85 108/80 116/79 O2 Sat by Pulse 96 96 Oximetry O2 Sat by Pulse Oximetry [ Assessment] 04/20/19 04/20/19 09:14 09:20 Temperature Pulse Rate 114 H Pulse Rate [ From Monitor] Respiratory Rate Blood Pressure 111/79 O2 Sat by Pulse 96 Oximetry O2 Sat by Pulse 97 Oximetry [ Assessment] Constitutional: no acute distress, other (young CF normocephalic and atraumatic s/p tracheostomy to ATP) Eyes: non-icteric ENT: oropharynx moist, other Neck: supple, no lymphadenopathy, no JVD Effort: mildly labored Ascultation: Bilateral: clear, diminished breath sounds, rhonchi Percussion: Bilateral: not dull Cardiovascular: regular rate and rhythm, other (sinus tachycardia) Gastrointestinal: normoactive bowel sounds, soft, non-tender, non-distended, other (PEG tube) Integumentary: erythema (noted on upper extremity) Extremities: no cyanosis, pink and warm, pulses normal, no ischemia or petechiae, edema (trace to 1+) Neurologic: unable to assess (awake, alert, not obeying commands) Psychiatric: other (unable to assess) CBC and BMP: 04/16/19 09:06 04/16/19 09:06 ABG, PT/INR, D-dimer: ABG POC ABG pH 7.565 (7.35-7.45) H 04/19/19 04:35 ABG pH 7.396 pH Units (7.350-7.450) 04/03/19 05:35 POC ABG pCO2 36.2 (35-45) 04/19/19 04:35 ABG pCO2 32.2 mm Hg 04/03/19 05:35 POC ABG pO2 88 (80-105) 04/19/19 04:35 ABG pO2 97.7 mm Hg (80.0-90.0) H 04/03/19 05:35 POC ABG HCO3 32.8 (22-26 mml/L) 04/19/19 04:35 POC ABG Total CO2 34 (23-27mmol/L) 04/19/19 04:35 POC ABG O2 Sat 98 04/19/19 04:35 ABG O2 Saturation 97.6 % (95.0-99.0) 04/03/19 05:35 PT/INR, D-dimer PT 13.9 Sec. (12.2-14.9) 04/01/19 17:14 INR 1.10 (0.87-1.13) 04/01/19 17:14 4526.86 ng/mlDDU (0-234) H 04/06/19 00:06 Abnormal lab findings: Abnormal Labs 03/29/19 03/29/19 03/29/19 19:11 19:20 19:20 WBC 26.7 H RBC 2.52 L Hgb 8.1 L Hct MCV 148 H MCH MCHC 22 L RDW 18.5 H Plt Count [place] % (Auto) Lymph # Seg Neuts % (Manual) 82.0 H Lymphocytes % (Manual) 7.0 L Nucleated RBC % Seg Neutrophils # Man 21.9 H Lymphocytes # (Manual) Monocytes # (Manual) 1.9 H PT 21.8 H INR 1.95 H APTT 74.5 H* D-Dimer POC ABG pH ABG pH POC ABG pCO2 POC ABG pO2 ABG pO2 ABG HCO3 ABG O2 Saturation ABG Base Excess ABG Hemoglobin VBG pH Oxyhemoglobin Sodium Potassium Chloride Carbon Dioxide BUN Creatinine Glucose POC Glucose > 500 H Lactic Acid Calcium Phosphorus Magnesium Iron TIBC Direct Bilirubin AST ALT Alkaline Phosphatase Total Creatine Kinase CK-MB (CK-2) C-Reactive Protein Total Protein Albumin Vitamin B12 Salicylates Acetaminophen Miscellaneous Test Crossmatch 03/29/19 03/29/19 03/29/19 19:20 19:47 20:59 WBC RBC Hgb Hct MCV MCH MCHC RDW Plt Count [place] % (Auto) Lymph # Seg Neuts % (Manual) Lymphocytes % (Manual) Nucleated RBC % Seg Neutrophils # Man Lymphocytes # (Manual) Monocytes # (Manual) PT INR APTT D-Dimer POC ABG pH 6.892 L ABG pH POC ABG pCO2 POC ABG pO2 236 H ABG pO2 ABG HCO3 ABG O2 Saturation ABG Base Excess ABG Hemoglobin VBG pH 6.800 L* Oxyhemoglobin Sodium 118 L* Potassium 9.0 H* Chloride 64.5 L Carbon Dioxide 7 L* BUN 53 H Creatinine 2.1 H Glucose 2196 H* POC Glucose Lactic Acid Calcium 12.4 H* Phosphorus Magnesium Iron TIBC Direct Bilirubin AST 3900 H ALT 1034 H Alkaline Phosphatase 316 H Total Creatine Kinase CK-MB (CK-2) C-Reactive Protein Total Protein 5.1 L Albumin 2.8 L Vitamin B12 Salicylates Acetaminophen Miscellaneous Test Crossmatch 03/29/19 03/29/19 03/29/19 22:45 22:45 22:45 WBC RBC Hgb Hct MCV MCH MCHC RDW Plt Count [place] % (Auto) Lymph # Seg Neuts % (Manual) Lymphocytes % (Manual) Nucleated RBC % Seg Neutrophils # Man Lymphocytes # (Manual) Monocytes # (Manual) PT INR APTT D-Dimer POC ABG pH ABG pH POC ABG pCO2 POC ABG pO2 ABG pO2 ABG HCO3 ABG O2 Saturation ABG Base Excess ABG Hemoglobin VBG pH Oxyhemoglobin Sodium 132 L D Potassium 7.0 H* Chloride 84.3 L Carbon Dioxide 3 L* BUN 48 H Creatinine 1.8 H Glucose 1779 H* POC Glucose Lactic Acid Calcium Phosphorus 21.70 H Magnesium 4.70 H Iron TIBC Direct Bilirubin AST ALT Alkaline Phosphatase Total Creatine Kinase 363 H CK-MB (CK-2) C-Reactive Protein Total Protein Albumin Vitamin B12 Salicylates Acetaminophen Miscellaneous Test Crossmatch 03/29/19 03/29/19 03/30/19 Unknown Unknown 00:11 WBC RBC Hgb Hct MCV MCH MCHC RDW Plt Count [place] % (Auto) Lymph # Seg Neuts % (Manual) Lymphocytes % (Manual) Nucleated RBC % Seg Neutrophils # Man Lymphocytes # (Manual) Monocytes # (Manual) PT INR APTT D-Dimer POC ABG pH ABG pH POC ABG pCO2 POC ABG pO2 ABG pO2 ABG HCO3 ABG O2 Saturation ABG Base Excess ABG Hemoglobin VBG pH Oxyhemoglobin Sodium 122 L Potassium 7.9 H* 6.4 H* Chloride 75.3 L 89.7 L Carbon Dioxide 3 L* 12 L D BUN 52 H 46 H Creatinine 2.0 H 1.7 H Glucose 2043 H* 1591 H* POC Glucose Lactic Acid Calcium 7.8 L Phosphorus 19.30 H Magnesium 3.90 H Iron TIBC Direct Bilirubin AST ALT Alkaline Phosphatase Total Creatine Kinase CK-MB (CK-2) C-Reactive Protein Total Protein Albumin Vitamin B12 Salicylates Acetaminophen Miscellaneous Test Crossmatch 03/30/19 03/30/19 03/30/19 00:11 02:14 02:14 WBC RBC Hgb Hct MCV MCH MCHC RDW Plt Count [place] % (Auto) Lymph # Seg Neuts % (Manual) Lymphocytes % (Manual) Nucleated RBC % Seg Neutrophils # Man Lymphocytes # (Manual) Monocytes # (Manual) PT INR APTT D-Dimer POC ABG pH ABG pH POC ABG pCO2 POC ABG pO2 ABG pO2 ABG HCO3 ABG O2 Saturation ABG Base Excess ABG Hemoglobin VBG pH Oxyhemoglobin Sodium Potassium Chloride Carbon Dioxide 9 L* BUN 45 H Creatinine 1.7 H Glucose 1155 H* POC Glucose Lactic Acid Calcium 7.9 L Phosphorus 10.90 H D 5.30 H D Magnesium 3.10 H 2.90 H Iron TIBC Direct Bilirubin AST ALT Alkaline Phosphatase Total Creatine Kinase CK-MB (CK-2) C-Reactive Protein Total Protein Albumin Vitamin B12 Salicylates Acetaminophen Miscellaneous Test Crossmatch 03/30/19 03/30/19 03/30/19 03:15 03:30 04:23 WBC 18.0 H RBC 2.31 L Hgb 7.3 L Hct 23.8 L D MCV 103 H MCH MCHC RDW 17.1 H Plt Count [place] % (Auto) Lymph # Seg Neuts % (Manual) 79.0 H Lymphocytes % (Manual) Nucleated RBC % Seg Neutrophils # Man 14.2 H Lymphocytes # (Manual) Monocytes # (Manual) PT INR APTT D-Dimer POC ABG pH 7.251 L ABG pH POC ABG pCO2 POC ABG pO2 156 H ABG pO2 ABG HCO3 ABG O2 Saturation ABG Base Excess ABG Hemoglobin VBG pH Oxyhemoglobin Sodium Potassium Chloride Carbon Dioxide BUN Creatinine Glucose POC Glucose Lactic Acid Calcium Phosphorus Magnesium Iron TIBC Direct Bilirubin AST ALT Alkaline Phosphatase Total Creatine Kinase CK-MB (CK-2) C-Reactive Protein Total Protein Albumin Vitamin B12 Salicylates Acetaminophen Miscellaneous Test Crossmatch See Detail 03/30/19 03/30/19 03/30/19 05:26 05:26 10:38 WBC RBC Hgb Hct MCV MCH MCHC RDW Plt Count [place] % (Auto) Lymph # Seg Neuts % (Manual) Lymphocytes % (Manual) Nucleated RBC % Seg Neutrophils # Man Lymphocytes # (Manual) Monocytes # (Manual) PT INR APTT D-Dimer POC ABG pH ABG pH POC ABG pCO2 POC ABG pO2 ABG pO2 ABG HCO3 ABG O2 Saturation ABG Base Excess ABG Hemoglobin VBG pH Oxyhemoglobin Sodium 158 H D Potassium 3.5 L Chloride 109.3 H Carbon Dioxide 19 L D BUN 40 H Creatinine 1.5 H Glucose 760 H* POC Glucose 380 H Lactic Acid Calcium 7.3 L Phosphorus Magnesium 2.60 H Iron TIBC Direct Bilirubin AST 12403 H ALT 2156 H Alkaline Phosphatase 271 H Total Creatine Kinase 2465 H CK-MB (CK-2) 52.7 H C-Reactive Protein Total Protein 4.5 L Albumin 2.4 L Vitamin B12 Salicylates Acetaminophen Miscellaneous Test Crossmatch 03/30/19 03/30/19 03/30/19 11:08 12:25 12:57 WBC RBC Hgb Hct MCV MCH MCHC RDW Plt Count [place] % (Auto) Lymph # Seg Neuts % (Manual) Lymphocytes % (Manual) Nucleated RBC % Seg Neutrophils # Man Lymphocytes # (Manual) Monocytes # (Manual) PT INR APTT D-Dimer POC ABG pH ABG pH POC ABG pCO2 POC ABG pO2 ABG pO2 ABG HCO3 ABG O2 Saturation ABG Base Excess ABG Hemoglobin VBG pH Oxyhemoglobin Sodium 156 H Potassium 3.2 L Chloride 116.4 H Carbon Dioxide 21 L BUN 37 H Creatinine Glucose 162 H POC Glucose 263 H 196 H Lactic Acid Calcium 7.2 L Phosphorus Magnesium Iron TIBC Direct Bilirubin AST ALT Alkaline Phosphatase Total Creatine Kinase CK-MB (CK-2) C-Reactive Protein Total Protein Albumin Vitamin B12 Salicylates Acetaminophen Miscellaneous Test Crossmatch 03/30/19 03/30/19 03/30/19 12:57 12:57 12:57 WBC RBC Hgb Hct MCV MCH MCHC RDW Plt Count [place] % (Auto) Lymph # Seg Neuts % (Manual) Lymphocytes % (Manual) Nucleated RBC % Seg Neutrophils # Man Lymphocytes # (Manual) Monocytes # (Manual) PT 21.0 H INR 1.86 H APTT D-Dimer POC ABG pH ABG pH POC ABG pCO2 POC ABG pO2 ABG pO2 ABG HCO3 ABG O2 Saturation ABG Base Excess ABG Hemoglobin VBG pH Oxyhemoglobin Sodium Potassium Chloride Carbon Dioxide BUN Creatinine Glucose POC Glucose Lactic Acid 9.00 H* Calcium Phosphorus Magnesium Iron TIBC Direct Bilirubin AST ALT Alkaline Phosphatase Total Creatine Kinase CK-MB (CK-2) C-Reactive Protein 2.40 H Total Protein Albumin Vitamin B12 Salicylates Acetaminophen Miscellaneous Test Crossmatch 03/30/19 03/30/19 03/30/19 13:23 14:00 14:47 WBC RBC Hgb Hct MCV MCH MCHC RDW Plt Count [place] % (Auto) Lymph # Seg Neuts % (Manual) Lymphocytes % (Manual) Nucleated RBC % Seg Neutrophils # Man Lymphocytes # (Manual) Monocytes # (Manual) PT INR APTT D-Dimer POC ABG pH ABG pH POC ABG pCO2 POC ABG pO2 ABG pO2 ABG HCO3 ABG O2 Saturation ABG Base Excess ABG Hemoglobin VBG pH Oxyhemoglobin Sodium Potassium Chloride Carbon Dioxide BUN Creatinine Glucose POC Glucose 176 H 245 H Lactic Acid Calcium Phosphorus Magnesium Iron TIBC Direct Bilirubin AST ALT Alkaline Phosphatase Total Creatine Kinase CK-MB (CK-2) C-Reactive Protein Total Protein Albumin Vitamin B12 Salicylates Acetaminophen Miscellaneous Test Flexitest 1 H Crossmatch 03/30/19 03/30/19 03/30/19 16:11 17:11 17:46 WBC RBC Hgb Hct MCV MCH MCHC RDW Plt Count [place] % (Auto) Lymph # Seg Neuts % (Manual) Lymphocytes % (Manual) Nucleated RBC % Seg Neutrophils # Man Lymphocytes # (Manual) Monocytes # (Manual) PT INR APTT D-Dimer POC ABG pH ABG pH POC ABG pCO2 POC ABG pO2 ABG pO2 ABG HCO3 ABG O2 Saturation ABG Base Excess ABG Hemoglobin VBG pH Oxyhemoglobin Sodium Potassium Chloride Carbon Dioxide BUN Creatinine Glucose POC Glucose 181 H 167 H 125 H Lactic Acid Calcium Phosphorus Magnesium Iron TIBC Direct Bilirubin AST ALT Alkaline Phosphatase Total Creatine Kinase CK-MB (CK-2) C-Reactive Protein Total Protein Albumin Vitamin B12 Salicylates Acetaminophen Miscellaneous Test Crossmatch 03/30/19 03/30/19 03/30/19 18:59 21:31 22:19 WBC RBC Hgb Hct MCV MCH MCHC RDW Plt Count [place] % (Auto) Lymph # Seg Neuts % (Manual) Lymphocytes % (Manual) Nucleated RBC % Seg Neutrophils # Man Lymphocytes # (Manual) Monocytes # (Manual) PT INR APTT D-Dimer POC ABG pH ABG pH POC ABG pCO2 POC ABG pO2 ABG pO2 ABG HCO3 ABG O2 Saturation ABG Base Excess ABG Hemoglobin VBG pH Oxyhemoglobin Sodium Potassium Chloride Carbon Dioxide BUN Creatinine Glucose POC Glucose 140 H 166 H 115 H Lactic Acid Calcium Phosphorus Magnesium Iron TIBC Direct Bilirubin AST ALT Alkaline Phosphatase Total Creatine Kinase CK-MB (CK-2) C-Reactive Protein Total Protein Albumin Vitamin B12 Salicylates Acetaminophen Miscellaneous Test Crossmatch 03/30/19 03/30/19 03/30/19 23:13 Unknown Unknown WBC RBC Hgb Hct MCV MCH MCHC RDW Plt Count [place] % (Auto) Lymph # Seg Neuts % (Manual) Lymphocytes % (Manual) Nucleated RBC % Seg Neutrophils # Man Lymphocytes # (Manual) Monocytes # (Manual) PT INR APTT D-Dimer POC ABG pH ABG pH POC ABG pCO2 POC ABG pO2 ABG pO2 47.8 L ABG HCO3 18.8 L ABG O2 Saturation 83.8 L ABG Base Excess -5.4 L ABG Hemoglobin 6.8 L VBG pH Oxyhemoglobin 81.8 L Sodium 157 H Potassium 3.3 L Chloride 117.9 H Carbon Dioxide 20 L BUN 36 H Creatinine Glucose 150 H POC Glucose 112 H Lactic Acid Calcium 7.2 L Phosphorus Magnesium Iron TIBC Direct Bilirubin AST ALT Alkaline Phosphatase Total Creatine Kinase CK-MB (CK-2) C-Reactive Protein Total Protein Albumin Vitamin B12 Salicylates Acetaminophen Miscellaneous Test Crossmatch 03/30/19 03/30/19 03/31/19 Unknown Unknown 00:03 WBC RBC Hgb Hct MCV MCH MCHC RDW Plt Count [place] % (Auto) Lymph # Seg Neuts % (Manual) Lymphocytes % (Manual) Nucleated RBC % Seg Neutrophils # Man Lymphocytes # (Manual) Monocytes # (Manual) PT INR APTT D-Dimer POC ABG pH ABG pH POC ABG pCO2 POC ABG pO2 ABG pO2 ABG HCO3 ABG O2 Saturation ABG Base Excess ABG Hemoglobin VBG pH Oxyhemoglobin Sodium Potassium Chloride Carbon Dioxide BUN Creatinine Glucose POC Glucose 188 H Lactic Acid Calcium Phosphorus Magnesium Iron TIBC Direct Bilirubin AST ALT Alkaline Phosphatase Total Creatine Kinase CK-MB (CK-2) C-Reactive Protein Total Protein Albumin Vitamin B12 Salicylates 0.8 L Acetaminophen < 5.0 L Miscellaneous Test Crossmatch 03/31/19 03/31/19 03/31/19 01:18 03:07 03:50 WBC RBC Hgb Hct MCV MCH MCHC RDW Plt Count [place] % (Auto) Lymph # Seg Neuts % (Manual) Lymphocytes % (Manual) Nucleated RBC % Seg Neutrophils # Man Lymphocytes # (Manual) Monocytes # (Manual) PT INR APTT D-Dimer POC ABG pH ABG pH 7.525 H POC ABG pCO2 POC ABG pO2 ABG pO2 178.0 H ABG HCO3 19.5 L ABG O2 Saturation 99.2 H ABG Base Excess -3.1 L ABG Hemoglobin 5.8 L VBG pH Oxyhemoglobin Sodium Potassium Chloride Carbon Dioxide BUN Creatinine Glucose POC Glucose 114 H 107 H Lactic Acid Calcium Phosphorus Magnesium Iron TIBC Direct Bilirubin AST ALT Alkaline Phosphatase Total Creatine Kinase CK-MB (CK-2) C-Reactive Protein Total Protein Albumin Vitamin B12 Salicylates Acetaminophen Miscellaneous Test Crossmatch 03/31/19 03/31/19 03/31/19 03:51 03:51 04:05 WBC RBC 1.89 L Hgb 6.1 L Hct 18.2 L* MCV MCH MCHC RDW 17.7 H Plt Count 89 L [place] % (Auto) Lymph # Seg Neuts % (Manual) 86.0 H Lymphocytes % (Manual) 10.0 L Nucleated RBC % 1.0 H Seg Neutrophils # Man Lymphocytes # (Manual) 0.7 L Monocytes # (Manual) PT INR APTT D-Dimer POC ABG pH ABG pH POC ABG pCO2 POC ABG pO2 ABG pO2 ABG HCO3 ABG O2 Saturation ABG Base Excess ABG Hemoglobin VBG pH Oxyhemoglobin Sodium 151 H Potassium 3.2 L Chloride 119.4 H Carbon Dioxide 17 L BUN 35 H Creatinine Glucose 139 H POC Glucose 153 H Lactic Acid Calcium 7.1 L Phosphorus Magnesium Iron TIBC Direct Bilirubin AST ALT Alkaline Phosphatase Total Creatine Kinase CK-MB (CK-2) C-Reactive Protein Total Protein Albumin Vitamin B12 Salicylates Acetaminophen Miscellaneous Test Crossmatch 03/31/19 03/31/19 03/31/19 05:05 05:35 06:23 WBC RBC Hgb Hct MCV MCH MCHC RDW Plt Count [place] % (Auto) Lymph # Seg Neuts % (Manual) Lymphocytes % (Manual) Nucleated RBC % Seg Neutrophils # Man Lymphocytes # (Manual) Monocytes # (Manual) PT INR APTT D-Dimer POC ABG pH ABG pH POC ABG pCO2 POC ABG pO2 ABG pO2 ABG HCO3 ABG O2 Saturation ABG Base Excess ABG Hemoglobin VBG pH Oxyhemoglobin Sodium Potassium Chloride Carbon Dioxide BUN Creatinine Glucose POC Glucose 176 H 133 H Lactic Acid 3.20 H* Calcium Phosphorus Magnesium Iron TIBC Direct Bilirubin AST ALT Alkaline Phosphatase Total Creatine Kinase CK-MB (CK-2) C-Reactive Protein Total Protein Albumin Vitamin B12 Salicylates Acetaminophen Miscellaneous Test Crossmatch 03/31/19 03/31/19 03/31/19 07:50 07:51 08:20 WBC RBC Hgb Hct MCV MCH MCHC RDW Plt Count [place] % (Auto) Lymph # Seg Neuts % (Manual) Lymphocytes % (Manual) Nucleated RBC % Seg Neutrophils # Man Lymphocytes # (Manual) Monocytes # (Manual) PT INR APTT D-Dimer POC ABG pH ABG pH POC ABG pCO2 POC ABG pO2 ABG pO2 ABG HCO3 ABG O2 Saturation ABG Base Excess ABG Hemoglobin VBG pH Oxyhemoglobin Sodium Potassium Chloride Carbon Dioxide BUN Creatinine Glucose POC Glucose 135 H Lactic Acid 3.30 H* Calcium Phosphorus Magnesium Iron 26 L TIBC 193 L Direct Bilirubin AST ALT Alkaline Phosphatase Total Creatine Kinase CK-MB (CK-2) C-Reactive Protein Total Protein Albumin Vitamin B12 Salicylates Acetaminophen Miscellaneous Test Crossmatch 03/31/19 03/31/19 03/31/19 08:20 08:20 09:06 WBC RBC Hgb Hct MCV MCH MCHC RDW Plt Count [place] % (Auto) Lymph # Seg Neuts % (Manual) Lymphocytes % (Manual) Nucleated RBC % Seg Neutrophils # Man Lymphocytes # (Manual) Monocytes # (Manual) PT INR APTT D-Dimer POC ABG pH ABG pH POC ABG pCO2 POC ABG pO2 ABG pO2 ABG HCO3 ABG O2 Saturation ABG Base Excess ABG Hemoglobin VBG pH Oxyhemoglobin Sodium 153 H Potassium 3.0 L Chloride 118.9 H Carbon Dioxide 18 L BUN 37 H Creatinine Glucose 132 H POC Glucose 145 H Lactic Acid Calcium 7.1 L Phosphorus Magnesium Iron TIBC Direct Bilirubin AST ALT Alkaline Phosphatase Total Creatine Kinase CK-MB (CK-2) C-Reactive Protein Total Protein Albumin Vitamin B12 > 2000 H Salicylates Acetaminophen Miscellaneous Test Crossmatch 03/31/19 03/31/19 03/31/19 10:47 11:49 13:04 WBC RBC Hgb Hct MCV MCH MCHC RDW Plt Count [place] % (Auto) Lymph # Seg Neuts % (Manual) Lymphocytes % (Manual) Nucleated RBC % Seg Neutrophils # Man Lymphocytes # (Manual) Monocytes # (Manual) PT INR APTT D-Dimer POC ABG pH ABG pH POC ABG pCO2 POC ABG pO2 ABG pO2 ABG HCO3 ABG O2 Saturation ABG Base Excess ABG Hemoglobin VBG pH Oxyhemoglobin Sodium Potassium Chloride Carbon Dioxide BUN Creatinine Glucose POC Glucose 153 H 174 H 214 H Lactic Acid Calcium Phosphorus Magnesium Iron TIBC Direct Bilirubin AST ALT Alkaline Phosphatase Total Creatine Kinase CK-MB (CK-2) C-Reactive Protein Total Protein Albumin Vitamin B12 Salicylates Acetaminophen Miscellaneous Test Crossmatch 03/31/19 03/31/19 03/31/19 13:42 15:08 16:08 WBC RBC Hgb Hct MCV MCH MCHC RDW Plt Count [place] % (Auto) Lymph # Seg Neuts % (Manual) Lymphocytes % (Manual) Nucleated RBC % Seg Neutrophils # Man Lymphocytes # (Manual) Monocytes # (Manual) PT INR APTT D-Dimer POC ABG pH ABG pH POC ABG pCO2 POC ABG pO2 ABG pO2 ABG HCO3 ABG O2 Saturation ABG Base Excess ABG Hemoglobin VBG pH Oxyhemoglobin Sodium Potassium Chloride Carbon Dioxide BUN Creatinine Glucose POC Glucose 186 H 136 H 150 H Lactic Acid Calcium Phosphorus Magnesium Iron TIBC Direct Bilirubin AST ALT Alkaline Phosphatase Total Creatine Kinase CK-MB (CK-2) C-Reactive Protein Total Protein Albumin Vitamin B12 Salicylates Acetaminophen Miscellaneous Test Crossmatch 03/31/19 03/31/19 03/31/19 17:11 17:30 17:30 WBC RBC Hgb 7.7 L Hct 23.0 L MCV MCH MCHC RDW Plt Count [place] % (Auto) Lymph # Seg Neuts % (Manual) Lymphocytes % (Manual) Nucleated RBC % Seg Neutrophils # Man Lymphocytes # (Manual) Monocytes # (Manual) PT INR APTT D-Dimer POC ABG pH ABG pH POC ABG pCO2 POC ABG pO2 ABG pO2 ABG HCO3 ABG O2 Saturation ABG Base Excess ABG Hemoglobin VBG pH Oxyhemoglobin Sodium 153 H Potassium 3.5 L Chloride 119.3 H Carbon Dioxide 20 L BUN 34 H Creatinine Glucose 162 H POC Glucose 140 H Lactic Acid Calcium 7.6 L Phosphorus Magnesium Iron TIBC Direct Bilirubin AST ALT Alkaline Phosphatase Total Creatine Kinase CK-MB (CK-2) C-Reactive Protein Total Protein Albumin Vitamin B12 Salicylates Acetaminophen Miscellaneous Test Crossmatch 03/31/19 03/31/19 03/31/19 17:59 18:58 20:28 WBC RBC Hgb Hct MCV MCH MCHC RDW Plt Count [place] % (Auto) Lymph # Seg Neuts % (Manual) Lymphocytes % (Manual) Nucleated RBC % Seg Neutrophils # Man Lymphocytes # (Manual) Monocytes # (Manual) PT INR APTT D-Dimer POC ABG pH ABG pH POC ABG pCO2 POC ABG pO2 ABG pO2 ABG HCO3 ABG O2 Saturation ABG Base Excess ABG Hemoglobin VBG pH Oxyhemoglobin Sodium Potassium Chloride Carbon Dioxide BUN Creatinine Glucose POC Glucose 156 H 152 H 138 H Lactic Acid Calcium Phosphorus Magnesium Iron TIBC Direct Bilirubin AST ALT Alkaline Phosphatase Total Creatine Kinase CK-MB (CK-2) C-Reactive Protein Total Protein Albumin Vitamin B12 Salicylates Acetaminophen Miscellaneous Test Crossmatch 03/31/19 03/31/19 03/31/19 21:09 22:15 23:10 WBC RBC Hgb Hct MCV MCH MCHC RDW Plt Count [place] % (Auto) Lymph # Seg Neuts % (Manual) Lymphocytes % (Manual) Nucleated RBC % Seg Neutrophils # Man Lymphocytes # (Manual) Monocytes # (Manual) PT INR APTT D-Dimer POC ABG pH ABG pH POC ABG pCO2 POC ABG pO2 ABG pO2 ABG HCO3 ABG O2 Saturation ABG Base Excess ABG Hemoglobin VBG pH Oxyhemoglobin Sodium Potassium Chloride Carbon Dioxide BUN Creatinine Glucose POC Glucose 136 H 137 H 148 H Lactic Acid Calcium Phosphorus Magnesium Iron TIBC Direct Bilirubin AST ALT Alkaline Phosphatase Total Creatine Kinase CK-MB (CK-2) C-Reactive Protein Total Protein Albumin Vitamin B12 Salicylates Acetaminophen Miscellaneous Test Crossmatch 04/01/19 04/01/19 04/01/19 00:05 01:17 02:11 WBC RBC Hgb Hct MCV MCH MCHC RDW Plt Count [place] % (Auto) Lymph # Seg Neuts % (Manual) Lymphocytes % (Manual) Nucleated RBC % Seg Neutrophils # Man Lymphocytes # (Manual) Monocytes # (Manual) PT INR APTT D-Dimer POC ABG pH ABG pH POC ABG pCO2 POC ABG pO2 ABG pO2 ABG HCO3 ABG O2 Saturation ABG Base Excess ABG Hemoglobin VBG pH Oxyhemoglobin Sodium Potassium Chloride Carbon Dioxide BUN Creatinine Glucose POC Glucose 143 H 151 H 155 H Lactic Acid Calcium Phosphorus Magnesium Iron TIBC Direct Bilirubin AST ALT Alkaline Phosphatase Total Creatine Kinase CK-MB (CK-2) C-Reactive Protein Total Protein Albumin Vitamin B12 Salicylates Acetaminophen Miscellaneous Test Crossmatch 04/01/19 04/01/19 04/01/19 03:12 04:03 04:16 WBC RBC Hgb Hct MCV MCH MCHC RDW Plt Count [place] % (Auto) Lymph # Seg Neuts % (Manual) Lymphocytes % (Manual) Nucleated RBC % Seg Neutrophils # Man Lymphocytes # (Manual) Monocytes # (Manual) PT INR APTT D-Dimer POC ABG pH ABG pH POC ABG pCO2 POC ABG pO2 ABG pO2 ABG HCO3 ABG O2 Saturation ABG Base Excess ABG Hemoglobin VBG pH Oxyhemoglobin Sodium Potassium Chloride Carbon Dioxide BUN Creatinine Glucose POC Glucose 140 H 143 H 142 H Lactic Acid Calcium Phosphorus Magnesium Iron TIBC Direct Bilirubin AST ALT Alkaline Phosphatase Total Creatine Kinase CK-MB (CK-2) C-Reactive Protein Total Protein Albumin Vitamin B12 Salicylates Acetaminophen Miscellaneous Test Crossmatch 04/01/19 04/01/19 04/01/19 05:01 05:01 05:08 WBC RBC 2.05 L Hgb 6.8 L Hct 20.5 L MCV 100 H MCH 33 H MCHC RDW 17.7 H Plt Count 53 L [place] % (Auto) Lymph # Seg Neuts % (Manual) 71.0 H Lymphocytes % (Manual) Nucleated RBC % Seg Neutrophils # Man Lymphocytes # (Manual) Monocytes # (Manual) PT INR APTT D-Dimer POC ABG pH ABG pH POC ABG pCO2 POC ABG pO2 ABG pO2 ABG HCO3 ABG O2 Saturation ABG Base Excess ABG Hemoglobin VBG pH Oxyhemoglobin Sodium Potassium Chloride Carbon Dioxide BUN Creatinine Glucose POC Glucose 119 H Lactic Acid Calcium Phosphorus Magnesium Iron TIBC Direct Bilirubin 0.3 H AST 4601 H ALT 1542 H Alkaline Phosphatase 185 H Total Creatine Kinase CK-MB (CK-2) C-Reactive Protein Total Protein 3.8 L Albumin 1.6 L Vitamin B12 Salicylates Acetaminophen Miscellaneous Test Crossmatch 04/01/19 04/01/19 04/01/19 05:23 06:37 08:15 WBC RBC Hgb Hct MCV MCH MCHC RDW Plt Count [place] % (Auto) Lymph # Seg Neuts % (Manual) Lymphocytes % (Manual) Nucleated RBC % Seg Neutrophils # Man Lymphocytes # (Manual) Monocytes # (Manual) PT INR APTT D-Dimer POC ABG pH ABG pH POC ABG pCO2 POC ABG pO2 ABG pO2 ABG HCO3 ABG O2 Saturation ABG Base Excess ABG Hemoglobin VBG pH Oxyhemoglobin Sodium Potassium Chloride Carbon Dioxide BUN Creatinine Glucose POC Glucose 115 H 124 H 138 H Lactic Acid Calcium Phosphorus Magnesium Iron TIBC Direct Bilirubin AST ALT Alkaline Phosphatase Total Creatine Kinase CK-MB (CK-2) C-Reactive Protein Total Protein Albumin Vitamin B12 Salicylates Acetaminophen Miscellaneous Test Crossmatch 04/01/19 04/01/19 04/01/19 09:50 10:10 10:31 WBC RBC Hgb 6.5 L Hct 19.2 L* MCV MCH MCHC RDW Plt Count [place] % (Auto) Lymph # Seg Neuts % (Manual) Lymphocytes % (Manual) Nucleated RBC % Seg Neutrophils # Man Lymphocytes # (Manual) Monocytes # (Manual) PT INR APTT D-Dimer POC ABG pH ABG pH POC ABG pCO2 POC ABG pO2 ABG pO2 ABG HCO3 ABG O2 Saturation ABG Base Excess ABG Hemoglobin VBG pH Oxyhemoglobin Sodium 149 H Potassium 3.5 L Chloride 119.9 H Carbon Dioxide 21 L BUN 33 H Creatinine 0.5 L Glucose 142 H POC Glucose 185 H Lactic Acid Calcium 7.3 L Phosphorus Magnesium Iron TIBC Direct Bilirubin AST 3686 H ALT 1440 H Alkaline Phosphatase 185 H Total Creatine Kinase CK-MB (CK-2) C-Reactive Protein Total Protein 3.7 L Albumin 1.8 L Vitamin B12 Salicylates Acetaminophen Miscellaneous Test Crossmatch 04/01/19 04/01/19 04/01/19 11:35 13:05 14:35 WBC RBC Hgb Hct MCV MCH MCHC RDW Plt Count [place] % (Auto) Lymph # Seg Neuts % (Manual) Lymphocytes % (Manual) Nucleated RBC % Seg Neutrophils # Man Lymphocytes # (Manual) Monocytes # (Manual) PT INR APTT D-Dimer POC ABG pH ABG pH POC ABG pCO2 POC ABG pO2 ABG pO2 ABG HCO3 ABG O2 Saturation ABG Base Excess ABG Hemoglobin VBG pH Oxyhemoglobin Sodium Potassium Chloride Carbon Dioxide BUN Creatinine Glucose POC Glucose 201 H 169 H 134 H Lactic Acid Calcium Phosphorus Magnesium Iron TIBC Direct Bilirubin AST ALT Alkaline Phosphatase Total Creatine Kinase CK-MB (CK-2) C-Reactive Protein Total Protein Albumin Vitamin B12 Salicylates Acetaminophen Miscellaneous Test Crossmatch 04/01/19 04/01/19 04/01/19 17:13 17:14 18:30 WBC RBC Hgb Hct MCV MCH MCHC RDW Plt Count [place] % (Auto) Lymph # Seg Neuts % (Manual) Lymphocytes % (Manual) Nucleated RBC % Seg Neutrophils # Man Lymphocytes # (Manual) Monocytes # (Manual) PT INR APTT D-Dimer 5203.68 H POC ABG pH ABG pH POC ABG pCO2 POC ABG pO2 ABG pO2 ABG HCO3 ABG O2 Saturation ABG Base Excess ABG Hemoglobin VBG pH Oxyhemoglobin Sodium Potassium Chloride Carbon Dioxide BUN Creatinine Glucose POC Glucose 69 L 128 H Lactic Acid Calcium Phosphorus Magnesium Iron TIBC Direct Bilirubin AST ALT Alkaline Phosphatase Total Creatine Kinase CK-MB (CK-2) C-Reactive Protein Total Protein Albumin Vitamin B12 Salicylates Acetaminophen Miscellaneous Test Crossmatch 04/01/19 04/01/19 04/02/19 22:50 Unknown 03:40 WBC RBC Hgb Hct MCV MCH MCHC RDW Plt Count [place] % (Auto) Lymph # Seg Neuts % (Manual) Lymphocytes % (Manual) Nucleated RBC % Seg Neutrophils # Man Lymphocytes # (Manual) Monocytes # (Manual) PT INR APTT D-Dimer POC ABG pH ABG pH POC ABG pCO2 POC ABG pO2 ABG pO2 78.3 L 142.8 H ABG HCO3 15.5 L ABG O2 Saturation ABG Base Excess -3.5 L -8.2 L ABG Hemoglobin 6.8 L 8.2 L VBG pH Oxyhemoglobin 94.3 L Sodium Potassium Chloride Carbon Dioxide BUN Creatinine Glucose POC Glucose 342 H Lactic Acid Calcium Phosphorus Magnesium Iron TIBC Direct Bilirubin AST ALT Alkaline Phosphatase Total Creatine Kinase CK-MB (CK-2) C-Reactive Protein Total Protein Albumin Vitamin B12 Salicylates Acetaminophen Miscellaneous Test Crossmatch 04/02/19 04/02/19 04/02/19 03:49 06:50 07:48 WBC RBC 2.65 L Hgb 8.6 L Hct 25.1 L MCV MCH MCHC RDW 17.6 H Plt Count 48 L [place] % (Auto) Lymph # Seg Neuts % (Manual) Lymphocytes % (Manual) Nucleated RBC % Seg Neutrophils # Man Lymphocytes # (Manual) Monocytes # (Manual) PT INR APTT D-Dimer POC ABG pH ABG pH POC ABG pCO2 POC ABG pO2 ABG pO2 ABG HCO3 ABG O2 Saturation ABG Base Excess ABG Hemoglobin VBG pH Oxyhemoglobin Sodium Potassium Chloride Carbon Dioxide BUN Creatinine Glucose POC Glucose 247 H 200 H Lactic Acid Calcium Phosphorus Magnesium Iron TIBC Direct Bilirubin AST ALT Alkaline Phosphatase Total Creatine Kinase CK-MB (CK-2) C-Reactive Protein Total Protein Albumin Vitamin B12 Salicylates Acetaminophen Miscellaneous Test Crossmatch 04/02/19 04/02/19 04/02/19 07:48 11:18 14:07 WBC RBC Hgb Hct MCV MCH MCHC RDW Plt Count [place] % (Auto) Lymph # Seg Neuts % (Manual) Lymphocytes % (Manual) Nucleated RBC % Seg Neutrophils # Man Lymphocytes # (Manual) Monocytes # (Manual) PT INR APTT D-Dimer POC ABG pH ABG pH POC ABG pCO2 POC ABG pO2 ABG pO2 ABG HCO3 ABG O2 Saturation ABG Base Excess ABG Hemoglobin VBG pH Oxyhemoglobin Sodium Potassium 3.5 L Chloride 115.7 H Carbon Dioxide 19 L BUN 29 H Creatinine 0.5 L Glucose 159 H POC Glucose 154 H 149 H Lactic Acid Calcium 7.5 L Phosphorus Magnesium Iron TIBC Direct Bilirubin AST 1418 H ALT 1134 H Alkaline Phosphatase 242 H Total Creatine Kinase CK-MB (CK-2) C-Reactive Protein Total Protein 4.2 L Albumin 2.1 L Vitamin B12 Salicylates Acetaminophen Miscellaneous Test Crossmatch 04/02/19 04/02/19 04/02/19 18:09 19:46 23:05 WBC RBC Hgb Hct MCV MCH MCHC RDW Plt Count [place] % (Auto) Lymph # Seg Neuts % (Manual) Lymphocytes % (Manual) Nucleated RBC % Seg Neutrophils # Man Lymphocytes # (Manual) Monocytes # (Manual) PT INR APTT D-Dimer POC ABG pH ABG pH POC ABG pCO2 POC ABG pO2 ABG pO2 ABG HCO3 ABG O2 Saturation ABG Base Excess ABG Hemoglobin VBG pH Oxyhemoglobin Sodium Potassium Chloride Carbon Dioxide BUN Creatinine Glucose POC Glucose 188 H 209 H 247 H Lactic Acid Calcium Phosphorus Magnesium Iron TIBC Direct Bilirubin AST ALT Alkaline Phosphatase Total Creatine Kinase CK-MB (CK-2) C-Reactive Protein Total Protein Albumin Vitamin B12 Salicylates Acetaminophen Miscellaneous Test Crossmatch 04/03/19 04/03/19 04/03/19 02:58 03:40 03:40 WBC RBC 2.87 L Hgb 9.3 L Hct 27.0 L MCV MCH MCHC RDW 17.2 H Plt Count 65 L [place] % (Auto) 9.8 H Lymph # 1.1 L Seg Neuts % (Manual) Lymphocytes % (Manual) Nucleated RBC % Seg Neutrophils # Man Lymphocytes # (Manual) Monocytes # (Manual) PT INR APTT D-Dimer POC ABG pH ABG pH POC ABG pCO2 POC ABG pO2 ABG pO2 ABG HCO3 ABG O2 Saturation ABG Base Excess ABG Hemoglobin VBG pH Oxyhemoglobin Sodium 147 H Potassium 3.5 L Chloride 116.7 H Carbon Dioxide 18 L BUN Creatinine 0.4 L Glucose 150 H POC Glucose 166 H Lactic Acid Calcium 8.1 L Phosphorus 2.20 L Magnesium Iron TIBC Direct Bilirubin AST 594 H ALT 861 H Alkaline Phosphatase 299 H Total Creatine Kinase CK-MB (CK-2) C-Reactive Protein Total Protein 4.4 L Albumin 2.1 L Vitamin B12 Salicylates Acetaminophen Miscellaneous Test Crossmatch 04/03/19 04/03/19 04/03/19 05:35 07:02 08:23 WBC RBC Hgb Hct MCV MCH MCHC RDW Plt Count [place] % (Auto) Lymph # Seg Neuts % (Manual) Lymphocytes % (Manual) Nucleated RBC % Seg Neutrophils # Man Lymphocytes # (Manual) Monocytes # (Manual) PT INR APTT D-Dimer POC ABG pH ABG pH POC ABG pCO2 POC ABG pO2 ABG pO2 97.7 H ABG HCO3 19.3 L ABG O2 Saturation ABG Base Excess -5.0 L ABG Hemoglobin 8.0 L VBG pH Oxyhemoglobin Sodium Potassium Chloride Carbon Dioxide BUN Creatinine Glucose POC Glucose 135 H 132 H Lactic Acid Calcium Phosphorus Magnesium Iron TIBC Direct Bilirubin AST ALT Alkaline Phosphatase Total Creatine Kinase CK-MB (CK-2) C-Reactive Protein Total Protein Albumin Vitamin B12 Salicylates Acetaminophen Miscellaneous Test Crossmatch 04/03/19 04/03/19 04/03/19 11:58 15:11 17:53 WBC RBC Hgb Hct MCV MCH MCHC RDW Plt Count [place] % (Auto) Lymph # Seg Neuts % (Manual) Lymphocytes % (Manual) Nucleated RBC % Seg Neutrophils # Man Lymphocytes # (Manual) Monocytes # (Manual) PT INR APTT D-Dimer POC ABG pH ABG pH POC ABG pCO2 POC ABG pO2 ABG pO2 ABG HCO3 ABG O2 Saturation ABG Base Excess ABG Hemoglobin VBG pH Oxyhemoglobin Sodium Potassium Chloride Carbon Dioxide BUN Creatinine Glucose POC Glucose 179 H 213 H 223 H Lactic Acid Calcium Phosphorus Magnesium Iron TIBC Direct Bilirubin AST ALT Alkaline Phosphatase Total Creatine Kinase CK-MB (CK-2) C-Reactive Protein Total Protein Albumin Vitamin B12 Salicylates Acetaminophen Miscellaneous Test Crossmatch 04/03/19 04/04/19 04/04/19 23:06 02:36 06:41 WBC RBC Hgb Hct MCV MCH MCHC RDW Plt Count [place] % (Auto) Lymph # Seg Neuts % (Manual) Lymphocytes % (Manual) Nucleated RBC % Seg Neutrophils # Man Lymphocytes # (Manual) Monocytes # (Manual) PT INR APTT D-Dimer POC ABG pH ABG pH POC ABG pCO2 POC ABG pO2 ABG pO2 ABG HCO3 ABG O2 Saturation ABG Base Excess ABG Hemoglobin VBG pH Oxyhemoglobin Sodium Potassium Chloride Carbon Dioxide BUN Creatinine Glucose POC Glucose 189 H 157 H 131 H Lactic Acid Calcium Phosphorus Magnesium Iron TIBC Direct Bilirubin AST ALT Alkaline Phosphatase Total Creatine Kinase CK-MB (CK-2) C-Reactive Protein Total Protein Albumin Vitamin B12 Salicylates Acetaminophen Miscellaneous Test Crossmatch 04/04/19 04/04/19 04/04/19 11:42 15:45 18:21 WBC RBC Hgb Hct MCV MCH MCHC RDW Plt Count [place] % (Auto) Lymph # Seg Neuts % (Manual) Lymphocytes % (Manual) Nucleated RBC % Seg Neutrophils # Man Lymphocytes # (Manual) Monocytes # (Manual) PT INR APTT D-Dimer POC ABG pH ABG pH POC ABG pCO2 POC ABG pO2 ABG pO2 ABG HCO3 ABG O2 Saturation ABG Base Excess ABG Hemoglobin VBG pH Oxyhemoglobin Sodium Potassium Chloride Carbon Dioxide BUN Creatinine Glucose POC Glucose 233 H 236 H 255 H Lactic Acid Calcium Phosphorus Magnesium Iron TIBC Direct Bilirubin AST ALT Alkaline Phosphatase Total Creatine Kinase CK-MB (CK-2) C-Reactive Protein Total Protein Albumin Vitamin B12 Salicylates Acetaminophen Miscellaneous Test Crossmatch 04/04/19 04/05/19 04/05/19 21:21 03:06 06:05 WBC RBC 2.68 L Hgb 8.5 L Hct 26.3 L MCV 98 H MCH MCHC RDW 17.4 H Plt Count [place] % (Auto) Lymph # Seg Neuts % (Manual) Lymphocytes % (Manual) Nucleated RBC % Seg Neutrophils # Man Lymphocytes # (Manual) Monocytes # (Manual) PT INR APTT D-Dimer POC ABG pH ABG pH POC ABG pCO2 POC ABG pO2 ABG pO2 ABG HCO3 ABG O2 Saturation ABG Base Excess ABG Hemoglobin VBG pH Oxyhemoglobin Sodium Potassium Chloride Carbon Dioxide BUN Creatinine Glucose POC Glucose 132 H 161 H Lactic Acid Calcium Phosphorus Magnesium Iron TIBC Direct Bilirubin AST ALT Alkaline Phosphatase Total Creatine Kinase CK-MB (CK-2) C-Reactive Protein Total Protein Albumin Vitamin B12 Salicylates Acetaminophen Miscellaneous Test Crossmatch 04/05/19 04/05/19 04/05/19 06:05 06:49 10:23 WBC RBC Hgb Hct MCV MCH MCHC RDW Plt Count [place] % (Auto) Lymph # Seg Neuts % (Manual) Lymphocytes % (Manual) Nucleated RBC % Seg Neutrophils # Man Lymphocytes # (Manual) Monocytes # (Manual) PT INR APTT D-Dimer POC ABG pH ABG pH POC ABG pCO2 POC ABG pO2 ABG pO2 ABG HCO3 ABG O2 Saturation ABG Base Excess ABG Hemoglobin VBG pH Oxyhemoglobin Sodium Potassium Chloride 112.5 H Carbon Dioxide BUN Creatinine 0.2 L Glucose 237 H POC Glucose 283 H 296 H Lactic Acid Calcium 7.9 L Phosphorus Magnesium Iron TIBC Direct Bilirubin AST ALT Alkaline Phosphatase Total Creatine Kinase CK-MB (CK-2) C-Reactive Protein Total Protein Albumin Vitamin B12 Salicylates Acetaminophen Miscellaneous Test Crossmatch 04/05/19 04/05/19 04/05/19 14:46 18:19 20:35 WBC RBC Hgb Hct MCV MCH MCHC RDW Plt Count [place] % (Auto) Lymph # Seg Neuts % (Manual) Lymphocytes % (Manual) Nucleated RBC % Seg Neutrophils # Man Lymphocytes # (Manual) Monocytes # (Manual) PT INR APTT D-Dimer POC ABG pH ABG pH POC ABG pCO2 POC ABG pO2 ABG pO2 ABG HCO3 ABG O2 Saturation ABG Base Excess ABG Hemoglobin VBG pH Oxyhemoglobin Sodium Potassium Chloride Carbon Dioxide BUN Creatinine Glucose POC Glucose 225 H 259 H 236 H Lactic Acid Calcium Phosphorus Magnesium Iron TIBC Direct Bilirubin AST ALT Alkaline Phosphatase Total Creatine Kinase CK-MB (CK-2) C-Reactive Protein Total Protein Albumin Vitamin B12 Salicylates Acetaminophen Miscellaneous Test Crossmatch 04/05/19 04/06/19 04/06/19 23:11 00:06 03:14 WBC RBC Hgb Hct MCV MCH MCHC RDW Plt Count [place] % (Auto) Lymph # Seg Neuts % (Manual) Lymphocytes % (Manual) Nucleated RBC % Seg Neutrophils # Man Lymphocytes # (Manual) Monocytes # (Manual) PT INR APTT D-Dimer 4526.86 H POC ABG pH ABG pH POC ABG pCO2 POC ABG pO2 ABG pO2 ABG HCO3 ABG O2 Saturation ABG Base Excess ABG Hemoglobin VBG pH Oxyhemoglobin Sodium Potassium Chloride Carbon Dioxide BUN Creatinine Glucose POC Glucose 205 H 228 H Lactic Acid Calcium Phosphorus Magnesium Iron TIBC Direct Bilirubin AST ALT Alkaline Phosphatase Total Creatine Kinase CK-MB (CK-2) C-Reactive Protein Total Protein Albumin Vitamin B12 Salicylates Acetaminophen Miscellaneous Test Crossmatch 04/06/19 04/06/19 04/06/19 05:20 05:20 07:57 WBC 15.1 H RBC 2.90 L Hgb 9.1 L Hct 28.0 L MCV MCH MCHC RDW 17.3 H Plt Count [place] % (Auto) Lymph # Seg Neuts % (Manual) Lymphocytes % (Manual) Nucleated RBC % Seg Neutrophils # Man Lymphocytes # (Manual) Monocytes # (Manual) PT INR APTT D-Dimer POC ABG pH ABG pH POC ABG pCO2 POC ABG pO2 ABG pO2 ABG HCO3 ABG O2 Saturation ABG Base Excess ABG Hemoglobin VBG pH Oxyhemoglobin Sodium Potassium Chloride Carbon Dioxide BUN Creatinine 0.2 L Glucose 161 H POC Glucose 191 H Lactic Acid Calcium 8.0 L Phosphorus Magnesium Iron TIBC Direct Bilirubin AST ALT Alkaline Phosphatase Total Creatine Kinase CK-MB (CK-2) C-Reactive Protein Total Protein Albumin Vitamin B12 Salicylates Acetaminophen Miscellaneous Test Crossmatch 04/06/19 04/06/19 04/06/19 12:09 18:24 22:07 WBC RBC Hgb Hct MCV MCH MCHC RDW Plt Count [place] % (Auto) Lymph # Seg Neuts % (Manual) Lymphocytes % (Manual) Nucleated RBC % Seg Neutrophils # Man Lymphocytes # (Manual) Monocytes # (Manual) PT INR APTT D-Dimer POC ABG pH ABG pH POC ABG pCO2 POC ABG pO2 ABG pO2 ABG HCO3 ABG O2 Saturation ABG Base Excess ABG Hemoglobin VBG pH Oxyhemoglobin Sodium Potassium Chloride Carbon Dioxide BUN Creatinine Glucose POC Glucose 143 H 161 H 140 H Lactic Acid Calcium Phosphorus Magnesium Iron TIBC Direct Bilirubin AST ALT Alkaline Phosphatase Total Creatine Kinase CK-MB (CK-2) C-Reactive Protein Total Protein Albumin Vitamin B12 Salicylates Acetaminophen Miscellaneous Test Crossmatch 04/07/19 04/07/19 04/07/19 03:00 04:30 04:30 WBC 13.0 H RBC 2.65 L Hgb 8.3 L Hct 25.5 L MCV MCH MCHC RDW 17.0 H Plt Count [place] % (Auto) Lymph # Seg Neuts % (Manual) Lymphocytes % (Manual) Nucleated RBC % Seg Neutrophils # Man Lymphocytes # (Manual) Monocytes # (Manual) PT INR APTT D-Dimer POC ABG pH ABG pH POC ABG pCO2 POC ABG pO2 ABG pO2 ABG HCO3 ABG O2 Saturation ABG Base Excess ABG Hemoglobin VBG pH Oxyhemoglobin Sodium Potassium Chloride Carbon Dioxide BUN Creatinine 0.2 L Glucose 208 H POC Glucose 224 H Lactic Acid Calcium 7.7 L Phosphorus Magnesium Iron TIBC Direct Bilirubin AST ALT Alkaline Phosphatase Total Creatine Kinase CK-MB (CK-2) C-Reactive Protein Total Protein Albumin Vitamin B12 Salicylates Acetaminophen Miscellaneous Test Crossmatch 04/07/19 04/07/19 04/07/19 05:47 08:27 10:33 WBC RBC Hgb Hct MCV MCH MCHC RDW Plt Count [place] % (Auto) Lymph # Seg Neuts % (Manual) Lymphocytes % (Manual) Nucleated RBC % Seg Neutrophils # Man Lymphocytes # (Manual) Monocytes # (Manual) PT INR APTT D-Dimer POC ABG pH ABG pH POC ABG pCO2 POC ABG pO2 ABG pO2 ABG HCO3 ABG O2 Saturation ABG Base Excess ABG Hemoglobin VBG pH Oxyhemoglobin Sodium Potassium Chloride Carbon Dioxide BUN Creatinine Glucose POC Glucose 225 H 176 H 207 H Lactic Acid Calcium Phosphorus Magnesium Iron TIBC Direct Bilirubin AST ALT Alkaline Phosphatase Total Creatine Kinase CK-MB (CK-2) C-Reactive Protein Total Protein Albumin Vitamin B12 Salicylates Acetaminophen Miscellaneous Test Crossmatch 04/07/19 04/07/19 04/07/19 14:13 18:32 22:42 WBC RBC Hgb Hct MCV MCH MCHC RDW Plt Count [place] % (Auto) Lymph # Seg Neuts % (Manual) Lymphocytes % (Manual) Nucleated RBC % Seg Neutrophils # Man Lymphocytes # (Manual) Monocytes # (Manual) PT INR APTT D-Dimer POC ABG pH ABG pH POC ABG pCO2 POC ABG pO2 ABG pO2 ABG HCO3 ABG O2 Saturation ABG Base Excess ABG Hemoglobin VBG pH Oxyhemoglobin Sodium Potassium Chloride Carbon Dioxide BUN Creatinine Glucose POC Glucose 219 H 227 H 238 H Lactic Acid Calcium Phosphorus Magnesium Iron TIBC Direct Bilirubin AST ALT Alkaline Phosphatase Total Creatine Kinase CK-MB (CK-2) C-Reactive Protein Total Protein Albumin Vitamin B12 Salicylates Acetaminophen Miscellaneous Test Crossmatch 04/08/19 04/08/19 04/08/19 02:31 05:37 14:10 WBC RBC Hgb Hct MCV MCH MCHC RDW Plt Count [place] % (Auto) Lymph # Seg Neuts % (Manual) Lymphocytes % (Manual) Nucleated RBC % Seg Neutrophils # Man Lymphocytes # (Manual) Monocytes # (Manual) PT INR APTT D-Dimer POC ABG pH ABG pH POC ABG pCO2 POC ABG pO2 ABG pO2 ABG HCO3 ABG O2 Saturation ABG Base Excess ABG Hemoglobin VBG pH Oxyhemoglobin Sodium Potassium Chloride Carbon Dioxide BUN Creatinine Glucose POC Glucose 194 H 194 H 139 H Lactic Acid Calcium Phosphorus Magnesium Iron TIBC Direct Bilirubin AST ALT Alkaline Phosphatase Total Creatine Kinase CK-MB (CK-2) C-Reactive Protein Total Protein Albumin Vitamin B12 Salicylates Acetaminophen Miscellaneous Test Crossmatch 04/08/19 04/08/19 04/09/19 17:43 23:20 03:28 WBC RBC Hgb Hct MCV MCH MCHC RDW Plt Count [place] % (Auto) Lymph # Seg Neuts % (Manual) Lymphocytes % (Manual) Nucleated RBC % Seg Neutrophils # Man Lymphocytes # (Manual) Monocytes # (Manual) PT INR APTT D-Dimer POC ABG pH ABG pH POC ABG pCO2 POC ABG pO2 ABG pO2 ABG HCO3 ABG O2 Saturation ABG Base Excess ABG Hemoglobin VBG pH Oxyhemoglobin Sodium Potassium Chloride Carbon Dioxide BUN Creatinine Glucose POC Glucose 261 H 277 H 301 H Lactic Acid Calcium Phosphorus Magnesium Iron TIBC Direct Bilirubin AST ALT Alkaline Phosphatase Total Creatine Kinase CK-MB (CK-2) C-Reactive Protein Total Protein Albumin Vitamin B12 Salicylates Acetaminophen Miscellaneous Test Crossmatch 04/09/19 04/09/19 04/09/19 05:35 05:35 05:35 WBC RBC 2.78 L Hgb 9.0 L Hct 26.7 L MCV MCH MCHC RDW 17.0 H Plt Count [place] % (Auto) Lymph # Seg Neuts % (Manual) Lymphocytes % (Manual) Nucleated RBC % Seg Neutrophils # Man Lymphocytes # (Manual) Monocytes # (Manual) PT INR APTT D-Dimer POC ABG pH ABG pH POC ABG pCO2 POC ABG pO2 ABG pO2 ABG HCO3 ABG O2 Saturation ABG Base Excess ABG Hemoglobin VBG pH Oxyhemoglobin Sodium Potassium Chloride Carbon Dioxide 31 H BUN Creatinine 0.2 L Glucose 218 H POC Glucose 240 H Lactic Acid Calcium Phosphorus Magnesium Iron TIBC Direct Bilirubin AST ALT Alkaline Phosphatase Total Creatine Kinase CK-MB (CK-2) C-Reactive Protein Total Protein Albumin Vitamin B12 Salicylates Acetaminophen Miscellaneous Test Crossmatch 04/09/19 04/09/19 04/09/19 09:01 12:23 17:33 WBC RBC Hgb Hct MCV MCH MCHC RDW Plt Count [place] % (Auto) Lymph # Seg Neuts % (Manual) Lymphocytes % (Manual) Nucleated RBC % Seg Neutrophils # Man Lymphocytes # (Manual) Monocytes # (Manual) PT INR APTT D-Dimer POC ABG pH ABG pH POC ABG pCO2 POC ABG pO2 ABG pO2 ABG HCO3 ABG O2 Saturation ABG Base Excess ABG Hemoglobin VBG pH Oxyhemoglobin Sodium Potassium Chloride Carbon Dioxide BUN Creatinine Glucose POC Glucose 160 H 162 H 149 H Lactic Acid Calcium Phosphorus Magnesium Iron TIBC Direct Bilirubin AST ALT Alkaline Phosphatase Total Creatine Kinase CK-MB (CK-2) C-Reactive Protein Total Protein Albumin Vitamin B12 Salicylates Acetaminophen Miscellaneous Test Crossmatch 04/09/19 04/09/19 04/10/19 21:26 22:28 03:16 WBC RBC Hgb Hct MCV MCH MCHC RDW Plt Count [place] % (Auto) Lymph # Seg Neuts % (Manual) Lymphocytes % (Manual) Nucleated RBC % Seg Neutrophils # Man Lymphocytes # (Manual) Monocytes # (Manual) PT INR APTT D-Dimer POC ABG pH ABG pH POC ABG pCO2 POC ABG pO2 ABG pO2 ABG HCO3 ABG O2 Saturation ABG Base Excess ABG Hemoglobin VBG pH Oxyhemoglobin Sodium Potassium Chloride Carbon Dioxide BUN Creatinine Glucose POC Glucose 196 H 224 H 163 H Lactic Acid Calcium Phosphorus Magnesium Iron TIBC Direct Bilirubin AST ALT Alkaline Phosphatase Total Creatine Kinase CK-MB (CK-2) C-Reactive Protein Total Protein Albumin Vitamin B12 Salicylates Acetaminophen Miscellaneous Test Crossmatch 04/10/19 04/10/19 04/10/19 04:15 04:15 05:30 WBC RBC 2.88 L Hgb 9.2 L Hct 27.9 L MCV MCH MCHC RDW 17.0 H Plt Count 454 H [place] % (Auto) Lymph # Seg Neuts % (Manual) Lymphocytes % (Manual) Nucleated RBC % Seg Neutrophils # Man Lymphocytes # (Manual) Monocytes # (Manual) PT INR APTT D-Dimer POC ABG pH ABG pH POC ABG pCO2 POC ABG pO2 ABG pO2 ABG HCO3 ABG O2 Saturation ABG Base Excess ABG Hemoglobin VBG pH Oxyhemoglobin Sodium Potassium Chloride Carbon Dioxide 32 H BUN Creatinine 0.2 L Glucose 126 H POC Glucose 135 H Lactic Acid Calcium Phosphorus Magnesium Iron TIBC Direct Bilirubin AST ALT Alkaline Phosphatase Total Creatine Kinase CK-MB (CK-2) C-Reactive Protein Total Protein Albumin Vitamin B12 Salicylates Acetaminophen Miscellaneous Test Crossmatch 04/10/19 04/10/19 04/10/19 12:14 15:29 23:38 WBC RBC Hgb Hct MCV MCH MCHC RDW Plt Count [place] % (Auto) Lymph # Seg Neuts % (Manual) Lymphocytes % (Manual) Nucleated RBC % Seg Neutrophils # Man Lymphocytes # (Manual) Monocytes # (Manual) PT INR APTT D-Dimer POC ABG pH ABG pH POC ABG pCO2 POC ABG pO2 ABG pO2 ABG HCO3 ABG O2 Saturation ABG Base Excess ABG Hemoglobin VBG pH Oxyhemoglobin Sodium Potassium Chloride Carbon Dioxide BUN Creatinine Glucose POC Glucose 109 H 149 H 268 H Lactic Acid Calcium Phosphorus Magnesium Iron TIBC Direct Bilirubin AST ALT Alkaline Phosphatase Total Creatine Kinase CK-MB (CK-2) C-Reactive Protein Total Protein Albumin Vitamin B12 Salicylates Acetaminophen Miscellaneous Test Crossmatch 04/11/19 04/11/19 04/11/19 05:27 12:08 18:08 WBC RBC Hgb Hct MCV MCH MCHC RDW Plt Count [place] % (Auto) Lymph # Seg Neuts % (Manual) Lymphocytes % (Manual) Nucleated RBC % Seg Neutrophils # Man Lymphocytes # (Manual) Monocytes # (Manual) PT INR APTT D-Dimer POC ABG pH ABG pH POC ABG pCO2 POC ABG pO2 ABG pO2 ABG HCO3 ABG O2 Saturation ABG Base Excess ABG Hemoglobin VBG pH Oxyhemoglobin Sodium Potassium Chloride Carbon Dioxide BUN Creatinine Glucose POC Glucose 109 H 185 H 190 H Lactic Acid Calcium Phosphorus Magnesium Iron TIBC Direct Bilirubin AST ALT Alkaline Phosphatase Total Creatine Kinase CK-MB (CK-2) C-Reactive Protein Total Protein Albumin Vitamin B12 Salicylates Acetaminophen Miscellaneous Test Crossmatch 04/11/19 04/12/19 04/12/19 23:23 06:00 11:42 WBC RBC Hgb Hct MCV MCH MCHC RDW Plt Count [place] % (Auto) Lymph # Seg Neuts % (Manual) Lymphocytes % (Manual) Nucleated RBC % Seg Neutrophils # Man Lymphocytes # (Manual) Monocytes # (Manual) PT INR APTT D-Dimer POC ABG pH ABG pH POC ABG pCO2 POC ABG pO2 ABG pO2 ABG HCO3 ABG O2 Saturation ABG Base Excess ABG Hemoglobin VBG pH Oxyhemoglobin Sodium Potassium Chloride Carbon Dioxide BUN Creatinine Glucose POC Glucose 127 H 201 H 161 H Lactic Acid Calcium Phosphorus Magnesium Iron TIBC Direct Bilirubin AST ALT Alkaline Phosphatase Total Creatine Kinase CK-MB (CK-2) C-Reactive Protein Total Protein Albumin Vitamin B12 Salicylates Acetaminophen Miscellaneous Test Crossmatch 04/12/19 04/12/19 04/12/19 17:56 20:07 21:59 WBC RBC Hgb Hct MCV MCH MCHC RDW Plt Count [place] % (Auto) Lymph # Seg Neuts % (Manual) Lymphocytes % (Manual) Nucleated RBC % Seg Neutrophils # Man Lymphocytes # (Manual) Monocytes # (Manual) PT INR APTT D-Dimer POC ABG pH ABG pH POC ABG pCO2 POC ABG pO2 ABG pO2 ABG HCO3 ABG O2 Saturation ABG Base Excess ABG Hemoglobin VBG pH Oxyhemoglobin Sodium Potassium Chloride Carbon Dioxide BUN Creatinine Glucose POC Glucose 145 H 158 H 203 H Lactic Acid Calcium Phosphorus Magnesium Iron TIBC Direct Bilirubin AST ALT Alkaline Phosphatase Total Creatine Kinase CK-MB (CK-2) C-Reactive Protein Total Protein Albumin Vitamin B12 Salicylates Acetaminophen Miscellaneous Test Crossmatch 04/12/19 04/13/19 04/13/19 23:37 08:50 08:50 WBC 15.7 H RBC 3.12 L Hgb Hct 30.2 L MCV MCH 33 H MCHC RDW 18.0 H Plt Count 678 H [place] % (Auto) Lymph # Seg Neuts % (Manual) Lymphocytes % (Manual) Nucleated RBC % Seg Neutrophils # Man Lymphocytes # (Manual) Monocytes # (Manual) PT INR APTT D-Dimer POC ABG pH ABG pH POC ABG pCO2 POC ABG pO2 ABG pO2 ABG HCO3 ABG O2 Saturation ABG Base Excess ABG Hemoglobin VBG pH Oxyhemoglobin Sodium Potassium Chloride Carbon Dioxide BUN Creatinine < 0.2 L Glucose 46 L POC Glucose 238 H Lactic Acid Calcium Phosphorus Magnesium Iron TIBC Direct Bilirubin AST ALT Alkaline Phosphatase Total Creatine Kinase CK-MB (CK-2) C-Reactive Protein Total Protein Albumin Vitamin B12 Salicylates Acetaminophen Miscellaneous Test Crossmatch 04/13/19 04/13/19 04/13/19 11:56 17:27 23:57 WBC RBC Hgb Hct MCV MCH MCHC RDW Plt Count [place] % (Auto) Lymph # Seg Neuts % (Manual) Lymphocytes % (Manual) Nucleated RBC % Seg Neutrophils # Man Lymphocytes # (Manual) Monocytes # (Manual) PT INR APTT D-Dimer POC ABG pH ABG pH POC ABG pCO2 POC ABG pO2 ABG pO2 ABG HCO3 ABG O2 Saturation ABG Base Excess ABG Hemoglobin VBG pH Oxyhemoglobin Sodium Potassium Chloride Carbon Dioxide BUN Creatinine Glucose POC Glucose 40 L 66 L 65 L Lactic Acid Calcium Phosphorus Magnesium Iron TIBC Direct Bilirubin AST ALT Alkaline Phosphatase Total Creatine Kinase CK-MB (CK-2) C-Reactive Protein Total Protein Albumin Vitamin B12 Salicylates Acetaminophen Miscellaneous Test Crossmatch 04/14/19 04/14/19 04/14/19 05:28 08:20 08:20 WBC 17.8 H RBC 3.26 L Hgb Hct MCV 98 H MCH MCHC RDW 18.3 H Plt Count 622 H [place] % (Auto) Lymph # Seg Neuts % (Manual) Lymphocytes % (Manual) Nucleated RBC % Seg Neutrophils # Man Lymphocytes # (Manual) Monocytes # (Manual) PT INR APTT D-Dimer POC ABG pH ABG pH POC ABG pCO2 POC ABG pO2 ABG pO2 ABG HCO3 ABG O2 Saturation ABG Base Excess ABG Hemoglobin VBG pH Oxyhemoglobin Sodium Potassium Chloride Carbon Dioxide BUN 6 L Creatinine < 0.2 L Glucose 154 H POC Glucose 149 H Lactic Acid Calcium Phosphorus Magnesium Iron TIBC Direct Bilirubin AST ALT Alkaline Phosphatase Total Creatine Kinase CK-MB (CK-2) C-Reactive Protein Total Protein Albumin Vitamin B12 Salicylates Acetaminophen Miscellaneous Test Crossmatch 04/14/19 04/14/19 04/14/19 12:16 17:54 23:35 WBC RBC Hgb Hct MCV MCH MCHC RDW Plt Count [place] % (Auto) Lymph # Seg Neuts % (Manual) Lymphocytes % (Manual) Nucleated RBC % Seg Neutrophils # Man Lymphocytes # (Manual) Monocytes # (Manual) PT INR APTT D-Dimer POC ABG pH ABG pH POC ABG pCO2 POC ABG pO2 ABG pO2 ABG HCO3 ABG O2 Saturation ABG Base Excess ABG Hemoglobin VBG pH Oxyhemoglobin Sodium Potassium Chloride Carbon Dioxide BUN Creatinine Glucose POC Glucose 176 H 224 H 173 H Lactic Acid Calcium Phosphorus Magnesium Iron TIBC Direct Bilirubin AST ALT Alkaline Phosphatase Total Creatine Kinase CK-MB (CK-2) C-Reactive Protein Total Protein Albumin Vitamin B12 Salicylates Acetaminophen Miscellaneous Test Crossmatch 04/15/19 04/15/19 04/15/19 05:44 12:44 18:06 WBC RBC Hgb Hct MCV MCH MCHC RDW Plt Count [place] % (Auto) Lymph # Seg Neuts % (Manual) Lymphocytes % (Manual) Nucleated RBC % Seg Neutrophils # Man Lymphocytes # (Manual) Monocytes # (Manual) PT INR APTT D-Dimer POC ABG pH 7.461 H ABG pH POC ABG pCO2 45.5 H POC ABG pO2 ABG pO2 ABG HCO3 ABG O2 Saturation ABG Base Excess ABG Hemoglobin VBG pH Oxyhemoglobin Sodium Potassium Chloride Carbon Dioxide BUN Creatinine Glucose POC Glucose 255 H 365 H Lactic Acid Calcium Phosphorus Magnesium Iron TIBC Direct Bilirubin AST ALT Alkaline Phosphatase Total Creatine Kinase CK-MB (CK-2) C-Reactive Protein Total Protein Albumin Vitamin B12 Salicylates Acetaminophen Miscellaneous Test Crossmatch 04/15/19 04/15/19 04/16/19 18:06 23:34 00:40 WBC RBC Hgb Hct MCV MCH MCHC RDW Plt Count [place] % (Auto) Lymph # Seg Neuts % (Manual) Lymphocytes % (Manual) Nucleated RBC % Seg Neutrophils # Man Lymphocytes # (Manual) Monocytes # (Manual) PT INR APTT D-Dimer POC ABG pH ABG pH POC ABG pCO2 POC ABG pO2 ABG pO2 ABG HCO3 ABG O2 Saturation ABG Base Excess ABG Hemoglobin VBG pH Oxyhemoglobin Sodium Potassium Chloride Carbon Dioxide BUN Creatinine Glucose POC Glucose 157 H 56 L 107 H Lactic Acid Calcium Phosphorus Magnesium Iron TIBC Direct Bilirubin AST ALT Alkaline Phosphatase Total Creatine Kinase CK-MB (CK-2) C-Reactive Protein Total Protein Albumin Vitamin B12 Salicylates Acetaminophen Miscellaneous Test Crossmatch 04/16/19 04/16/19 04/16/19 09:06 09:06 11:21 WBC 12.9 H RBC 2.95 L Hgb 9.7 L Hct 28.9 L MCV 98 H MCH 33 H MCHC RDW 17.7 H Plt Count 581 H [place] % (Auto) Lymph # Seg Neuts % (Manual) Lymphocytes % (Manual) Nucleated RBC % Seg Neutrophils # Man Lymphocytes # (Manual) Monocytes # (Manual) PT INR APTT D-Dimer POC ABG pH ABG pH POC ABG pCO2 POC ABG pO2 ABG pO2 ABG HCO3 ABG O2 Saturation ABG Base Excess ABG Hemoglobin VBG pH Oxyhemoglobin Sodium Potassium Chloride Carbon Dioxide 31 H BUN Creatinine 0.2 L Glucose 155 H POC Glucose 184 H Lactic Acid Calcium Phosphorus Magnesium Iron TIBC Direct Bilirubin AST ALT Alkaline Phosphatase Total Creatine Kinase CK-MB (CK-2) C-Reactive Protein Total Protein Albumin Vitamin B12 Salicylates Acetaminophen Miscellaneous Test Crossmatch 04/16/19 04/16/19 04/16/19 17:28 20:17 23:09 WBC RBC Hgb Hct MCV MCH MCHC RDW Plt Count [place] % (Auto) Lymph # Seg Neuts % (Manual) Lymphocytes % (Manual) Nucleated RBC % Seg Neutrophils # Man Lymphocytes # (Manual) Monocytes # (Manual) PT INR APTT D-Dimer POC ABG pH 7.479 H ABG pH POC ABG pCO2 POC ABG pO2 71 L ABG pO2 ABG HCO3 ABG O2 Saturation ABG Base Excess ABG Hemoglobin VBG pH Oxyhemoglobin Sodium Potassium Chloride Carbon Dioxide BUN Creatinine Glucose POC Glucose 173 H 178 H Lactic Acid Calcium Phosphorus Magnesium Iron TIBC Direct Bilirubin AST ALT Alkaline Phosphatase Total Creatine Kinase CK-MB (CK-2) C-Reactive Protein Total Protein Albumin Vitamin B12 Salicylates Acetaminophen Miscellaneous Test Crossmatch 04/17/19 04/17/19 04/17/19 05:02 11:39 12:48 WBC RBC Hgb Hct MCV MCH MCHC RDW Plt Count [place] % (Auto) Lymph # Seg Neuts % (Manual) Lymphocytes % (Manual) Nucleated RBC % Seg Neutrophils # Man Lymphocytes # (Manual) Monocytes # (Manual) PT INR APTT D-Dimer POC ABG pH 7.557 H ABG pH POC ABG pCO2 32.8 L POC ABG pO2 149 H ABG pO2 ABG HCO3 ABG O2 Saturation ABG Base Excess ABG Hemoglobin VBG pH Oxyhemoglobin Sodium Potassium Chloride Carbon Dioxide BUN Creatinine Glucose POC Glucose 252 H 124 H Lactic Acid Calcium Phosphorus Magnesium Iron TIBC Direct Bilirubin AST ALT Alkaline Phosphatase Total Creatine Kinase CK-MB (CK-2) C-Reactive Protein Total Protein Albumin Vitamin B12 Salicylates Acetaminophen Miscellaneous Test Crossmatch 04/17/19 04/18/19 04/18/19 23:31 05:32 11:34 WBC RBC Hgb Hct MCV MCH MCHC RDW Plt Count [place] % (Auto) Lymph # Seg Neuts % (Manual) Lymphocytes % (Manual) Nucleated RBC % Seg Neutrophils # Man Lymphocytes # (Manual) Monocytes # (Manual) PT INR APTT D-Dimer POC ABG pH ABG pH POC ABG pCO2 POC ABG pO2 ABG pO2 ABG HCO3 ABG O2 Saturation ABG Base Excess ABG Hemoglobin VBG pH Oxyhemoglobin Sodium Potassium Chloride Carbon Dioxide BUN Creatinine Glucose POC Glucose 149 H 334 H 344 H Lactic Acid Calcium Phosphorus Magnesium Iron TIBC Direct Bilirubin AST ALT Alkaline Phosphatase Total Creatine Kinase CK-MB (CK-2) C-Reactive Protein Total Protein Albumin Vitamin B12 Salicylates Acetaminophen Miscellaneous Test Crossmatch 04/18/19 04/18/19 04/18/19 17:43 18:14 23:35 WBC RBC Hgb Hct MCV MCH MCHC RDW Plt Count [place] % (Auto) Lymph # Seg Neuts % (Manual) Lymphocytes % (Manual) Nucleated RBC % Seg Neutrophils # Man Lymphocytes # (Manual) Monocytes # (Manual) PT INR APTT D-Dimer POC ABG pH ABG pH POC ABG pCO2 49.2 H POC ABG pO2 ABG pO2 ABG HCO3 ABG O2 Saturation ABG Base Excess ABG Hemoglobin VBG pH Oxyhemoglobin Sodium Potassium Chloride Carbon Dioxide BUN Creatinine Glucose POC Glucose 289 H 312 H Lactic Acid Calcium Phosphorus Magnesium Iron TIBC Direct Bilirubin AST ALT Alkaline Phosphatase Total Creatine Kinase CK-MB (CK-2) C-Reactive Protein Total Protein Albumin Vitamin B12 Salicylates Acetaminophen Miscellaneous Test Crossmatch 04/19/19 04/19/19 04/19/19 04:35 05:55 12:26 WBC RBC Hgb Hct MCV MCH MCHC RDW Plt Count [place] % (Auto) Lymph # Seg Neuts % (Manual) Lymphocytes % (Manual) Nucleated RBC % Seg Neutrophils # Man Lymphocytes # (Manual) Monocytes # (Manual) PT INR APTT D-Dimer POC ABG pH 7.565 H ABG pH POC ABG pCO2 POC ABG pO2 ABG pO2 ABG HCO3 ABG O2 Saturation ABG Base Excess ABG Hemoglobin VBG pH Oxyhemoglobin Sodium Potassium Chloride Carbon Dioxide BUN Creatinine Glucose POC Glucose 172 H 271 H Lactic Acid Calcium Phosphorus Magnesium Iron TIBC Direct Bilirubin AST ALT Alkaline Phosphatase Total Creatine Kinase CK-MB (CK-2) C-Reactive Protein Total Protein Albumin Vitamin B12 Salicylates Acetaminophen Miscellaneous Test Crossmatch 04/19/19 04/19/19 04/19/19 17:54 21:10 23:35 WBC RBC Hgb Hct MCV MCH MCHC RDW Plt Count [place] % (Auto) Lymph # Seg Neuts % (Manual) Lymphocytes % (Manual) Nucleated RBC % Seg Neutrophils # Man Lymphocytes # (Manual) Monocytes # (Manual) PT INR APTT D-Dimer POC ABG pH ABG pH POC ABG pCO2 POC ABG pO2 ABG pO2 ABG HCO3 ABG O2 Saturation ABG Base Excess ABG Hemoglobin VBG pH Oxyhemoglobin Sodium Potassium Chloride Carbon Dioxide BUN Creatinine Glucose POC Glucose 229 H 189 H 131 H Lactic Acid Calcium Phosphorus Magnesium Iron TIBC Direct Bilirubin AST ALT Alkaline Phosphatase Total Creatine Kinase CK-MB (CK-2) C-Reactive Protein Total Protein Albumin Vitamin B12 Salicylates Acetaminophen Miscellaneous Test Crossmatch 04/20/19 05:42 WBC RBC Hgb Hct MCV MCH MCHC RDW Plt Count [place] % (Auto) Lymph # Seg Neuts % (Manual) Lymphocytes % (Manual) Nucleated RBC % Seg Neutrophils # Man Lymphocytes # (Manual) Monocytes # (Manual) PT INR APTT D-Dimer POC ABG pH ABG pH POC ABG pCO2 POC ABG pO2 ABG pO2 ABG HCO3 ABG O2 Saturation ABG Base Excess ABG Hemoglobin VBG pH Oxyhemoglobin Sodium Potassium Chloride Carbon Dioxide BUN Creatinine Glucose POC Glucose 289 H Lactic Acid Calcium Phosphorus Magnesium Iron TIBC Direct Bilirubin AST ALT Alkaline Phosphatase Total Creatine Kinase CK-MB (CK-2) C-Reactive Protein Total Protein Albumin Vitamin B12 Salicylates Acetaminophen Miscellaneous Test Crossmatch Allied health notes reviewed: nursing
[2019-04-20] MEDS: TRANSDERM-SCOP TD SCH (11:57)
[2019-04-20] MEDS: DURAGESIC TD SCH (14:08)
[2019-04-20] MEDS: DUONEB *Not for PRN Use IH SCH (20:52)
[2019-04-20] MEDS: LANTUS SUB-Q SCH (21:57)
[2019-04-20] MEDS: TYLENOL PO PRN (22:05)
[2019-04-21] MEDS: HumuLIN R SUB-Q SCH ×3 (06:03→06:10)
[2019-04-21] MEDS: DUONEB *Not for PRN Use IH SCH ×3 (08:35→20:46)
[2019-04-21] MEDS: ENOXAPARIN SUB-Q SCH (09:35)
[2019-04-21] MEDS: METOPROLOL PO SCH ×2 (09:35→21:02)
[2019-04-21] MEDS: PEPCID PO SCH ×2 (09:36→21:02)
[2019-04-21] MEDS: SODIUM CHLORIDE FLUSH SYRINGE 10 ML IV SCH ×2 (09:36→21:03)
[2019-04-21] MEDS: KEPPRA PO SCH ×2 (09:36→21:02)
[2019-04-21] MEDS: VASELINE LIP THERAPY TP PRN (09:53)
[2019-04-21] MEDS ORDERED: D50W (25GM) Syringe IV PRN (12:03)
--- NOTE | 2019-04-21 12:04 | Progress Note ---
Assessment and Plan Assessment and plan: Patient is a 29 year old woman with a history of diabetes was brought to the emergency room following a cardiac arrest. Her last well-known time was 10:30 in the morning, she was traveling with a friend, she was unresponsive in the back seat. EMS was called, CPR was started and continued here in the emergency room. Patient was intubated in the ER, noted hypotensive started on dobutamine, epinephrine and Levophed drip, given IV fluids, found to be in DKA with BG ~2200, several metabolic derangements - placed on insulin drip and admitted to ICU. BP improved and she was weaned off pressors. Still intubated on vent, minimal response. patient has been in coma for several days, no improvement. She has a DNR status order. Acute respiratory failure s/p intubated, off vent - s/p trach and peg - Tracheostomy re-adjusted on 04/17/19 - on vent, cont nebs, - s/p Trach POD 3 - Pulm following - Aspiration precautions - VAP bundle Acute anoxic encephalopathy, POA - from cardiac arrest for DM - Neurology following -MR concerning for anoxic Brain injury Cardiac arrest s/p resuscitation - likely 2/2 severe hyperglycemia - preserved EF on 2D echo Generalized Anasacara -Given a dose of Bumex DKA, severe - BG was >2200 on admission - s/p insulin drip. cont iv fluid - monitor BG q4h, on TF and on subqu insulin - adjust dose as needed Shock hypotensive +/- sepsis - resolved Now off pressors. Was on vasopressin, Levophed, Phenylephrine Sepsis with possible aspiration PNA - evident on CXR on admission with left sided infiltrates - cont abx per ID - Competed abx - Abx discontinued following notation that no evidence of liver lesion not consistent with infection per ID - Leucocytosis and thrombocytosis are likely reactive from hepatic subcapsular hematoma Head lice - multiple dosing of Permethin given - continue isolation Acute renal failure, likely vasomotor nephropathy - resolved - cont iv fluid, monitor BMP Anemia, acute on chronic - no sign of blood loss s/p 2 Units PRBC transfused Hyperkalemia, resolved with fluid and insulin Hypernatremia Resolved hypokalemia, resolved Shock liver with elevated LFT and Coagulopathy - due to cardiac arrest and hypotension - cont to monitor Liver lesion ID Physician following Discontinued abx, not consistent with infection as noted above Hypermagnesemia - monitor levels as needed Hyperphosphatemia -cont to monitor, improved Stage 1 sacral ulcer, poa - upper ext blisters - pressure ulcer prevention strategies VT Prophylaxis with Lovenox Poor prognosis DNR status Disposition: continue inpatient care, await placement History Interval history: Patient was seen and examined. Follow-up on current diagnosis respiratory failure. No overnight events reported to me.. Imaging, nursing note, chart, labs and old chart reviewed. Hospitalist Physical - Physical exam Narrative exam: Gen: On full MVS and tolerating HEENT: facial edema, atraumatic. Trach bed clean with no drainage, opens eyes spontanously Neck: supple, no JVD Heart: S1 and S2 reg, Tachycardia, no murmurs, rubs or gallop Lungs: Clear to auscultation, no rhonchi, no wheeze Abd: soft, non tender, non distended, normal BS, Ext: anasarca, leg edema, no cyanosis Neuro: Minimal responsive, does not follow commands, Skin: see full skin assessment. Stage 1 sacral ulcer - Constitutional Vitals: Temp Pulse Resp BP Pulse Ox 98.5 F 101 H 31 H 104/74 95 04/21/19 08:00 04/21/19 09:35 04/21/19 08:00 04/21/19 09:35 04/21/19 08:46 General appearance: Present: other (intubated) Results - Labs CBC & Chem 7: 04/16/19 09:06 04/16/19 09:06 Labs: Laboratory Last Values WBC 12.9 K/mm3 (4.5-11.0) H 04/16/19 09:06 RBC 2.95 M/mm3 (3.65-5.03) L 04/16/19 09:06 Hgb 9.7 gm/dl (10.1-14.3) L 04/16/19 09:06 Hct 28.9 % (30.3-42.9) L 04/16/19 09:06 MCV 98 fl (79-97) H 04/16/19 09:06 MCH 33 pg (28-32) H 04/16/19 09:06 MCHC 33 % (30-34) 04/16/19 09:06 RDW 17.7 % (13.2-15.2) H 04/16/19 09:06 Plt Count 581 K/mm3 (140-440) H 04/16/19 09:06 Lymph % (Auto) 16.9 % (13.4-35.0) 04/03/19 03:40 [place] % (Auto) 9.8 % (0.0-7.3) H 04/03/19 03:40 Eos % (Auto) 3.2 % (0.0-4.3) 04/03/19 03:40 Baso % (Auto) 0.4 % (0.0-1.8) 04/03/19 03:40 Lymph # 1.1 K/mm3 (1.2-5.4) L 04/03/19 03:40 [place] # 0.6 K/mm3 (0.0-0.8) 04/03/19 03:40 Eos # 0.2 K/mm3 (0.0-0.4) 04/03/19 03:40 Baso # 0.0 K/mm3 (0.0-0.1) 04/03/19 03:40 Add Manual Diff Complete 04/01/19 05:01 Total Counted 100 04/01/19 05:01 Seg Neutrophils % 69.7 % (40.0-70.0) 04/03/19 03:40 Seg Neuts % (Manual) 71.0 % (40.0-70.0) H 04/01/19 05:01 0 % 04/01/19 05:01 20.0 % (13.4-35.0) 04/01/19 05:01 Reactive Lymphs % (Man) 0 % 04/01/19 05:01 7.0 % (0.0-7.3) 04/01/19 05:01 2.0 % (0.0-4.3) 04/01/19 05:01 0 % (0.0-1.8) 04/01/19 05:01 0 % 04/01/19 05:01 0 % 04/01/19 05:01 0 % 04/01/19 05:01 0 % 04/01/19 05:01 Nucleated RBC % Not Reportable 04/01/19 05:01 Seg Neutrophils # 4.4 K/mm3 (1.8-7.7) 04/03/19 03:40 Seg Neutrophils # Man 4.8 K/mm3 (1.8-7.7) 04/01/19 05:01 Band Neutrophils # 0.0 K/mm3 04/01/19 05:01 1.4 K/mm3 (1.2-5.4) 04/01/19 05:01 Abs React Lymphs (Man) 0.0 K/mm3 04/01/19 05:01 0.5 K/mm3 (0.0-0.8) 04/01/19 05:01 0.1 K/mm3 (0.0-0.4) 04/01/19 05:01 0.0 K/mm3 (0.0-0.1) 04/01/19 05:01 0.0 K/mm3 04/01/19 05:01 0.0 K/mm3 04/01/19 05:01 0.0 K/mm3 04/01/19 05:01 Blast Cells # 0.0 K/mm3 04/01/19 05:01 WBC Morphology Not Reportable 04/01/19 05:01 Hypersegmented Neuts Not Reportable 04/01/19 05:01 Hyposegmented Neuts Not Reportable 04/01/19 05:01 Hypogranular Neuts Not Reportable 04/01/19 05:01 Not Reportable 04/01/19 05:01 Not Reportable 04/01/19 05:01 Not Reportable 04/01/19 05:01 Not Reportable 04/01/19 05:01 Not Reportable 04/01/19 05:01 Not Reportable 04/01/19 05:01 Not Reportable 04/01/19 05:01 Not Reportable 04/01/19 05:01 Plt Clumps, EDTA Not Reportable 04/01/19 05:01 Not Reportable 04/01/19 05:01 Not Reportable 04/01/19 05:01 Not Reportable 04/01/19 05:01 Plt Morphology Comment Not Reportable 04/01/19 05:01 RBC Morphology Normal 04/01/19 05:01 Dimorphic RBCs Not Reportable 04/01/19 05:01 Not Reportable 04/01/19 05:01 Not Reportable 04/01/19 05:01 Not Reportable 04/01/19 05:01 Not Reportable 04/01/19 05:01 Not Reportable 04/01/19 05:01 Not Reportable 04/01/19 05:01 Not Reportable 04/01/19 05:01 Not Reportable 04/01/19 05:01 Not Reportable 04/01/19 05:01 Not Reportable 04/01/19 05:01 Not Reportable 04/01/19 05:01 Not Reportable 04/01/19 05:01 Not Reportable 04/01/19 05:01 Not Reportable 04/01/19 05:01 Not Reportable 04/01/19 05:01 Not Reportable 04/01/19 05:01 Not Reportable 04/01/19 05:01 Not Reportable 04/01/19 05:01 Not Reportable 04/01/19 05:01 Acanthocytes (Spur) Not Reportable 04/01/19 05:01 Rouleaux Not Reportable 04/01/19 05:01 Not Reportable 04/01/19 05:01 Not Reportable 04/01/19 05:01 Not Reportable 04/01/19 05:01 Not Reportable 04/01/19 05:01 Hem Pathologist Commnt No 04/01/19 05:01 PT 13.9 Sec. (12.2-14.9) 04/01/19 17:14 INR 1.10 (0.87-1.13) 04/01/19 17:14 APTT 74.5 Sec. (24.2-36.6) H* 03/29/19 19:20 313 mg/dl (211-480) 04/01/19 17:14 4526.86 ng/mlDDU (0-234) H 04/06/19 00:06 Heparin Anti-Xa, Unfract Negative (Negative) 03/31/19 15:00 POC ABG pH 7.565 (7.35-7.45) H 04/19/19 04:35 ABG pH 7.396 pH Units (7.350-7.450) 04/03/19 05:35 POC ABG pCO2 36.2 (35-45) 04/19/19 04:35 ABG pCO2 32.2 mm Hg 04/03/19 05:35 POC ABG pO2 88 (80-105) 04/19/19 04:35 ABG pO2 97.7 mm Hg (80.0-90.0) H 04/03/19 05:35 POC ABG HCO3 32.8 (22-26 mml/L) 04/19/19 04:35 ABG HCO3 19.3 mmol/L (20.0-26.0) L 04/03/19 05:35 POC ABG Total CO2 34 (23-27mmol/L) 04/19/19 04:35 POC ABG O2 Sat 98 04/19/19 04:35 ABG O2 Saturation 97.6 % (95.0-99.0) 04/03/19 05:35 ABG O2 Content 10.9 (0.0-44) 04/03/19 05:35 POC ABG Base Excess 11 ((-2) - (+3)mmol/L) 04/19/19 04:35 ABG Base Excess -5.0 mmol/L (-2.0-3.0) L 04/03/19 05:35 ABG Hemoglobin 8.0 gm/dl (12.0-16.0) L 04/03/19 05:35 ABG Carboxyhemoglobin 2.1 % (0.0-5.0) 04/03/19 05:35 ABG Methemoglobin 0.5 % (0.0-1.5) 04/03/19 05:35 VBG pH 6.800 (7.320-7.420) L* 03/29/19 19:47 95.1 % (95.0-99.0) 04/03/19 05:35 40 % 04/19/19 04:35 Sodium 137 mmol/L (137-145) 04/16/19 09:06 Potassium 4.7 mmol/L (3.6-5.0) 04/16/19 09:06 Chloride 98.1 mmol/L (98-107) 04/16/19 09:06 Carbon Dioxide 31 mmol/L (22-30) H 04/16/19 09:06 13 mmol/L 04/16/19 09:06 BUN 10 mg/dL (7-17) 04/16/19 09:06 0.2 mg/dL (0.7-1.2) L 04/16/19 09:06 Estimated GFR > 60 ml/min 04/16/19 09:06 50 % 04/16/19 09:06 Glucose 155 mg/dL (65-100) H 04/16/19 09:06 POC Glucose 233 (70-105) H 04/21/19 05:13 Lactic Acid 3.30 mmol/L (0.7-2.0) H* 03/31/19 07:50 Calcium 8.9 mg/dL (8.4-10.2) 04/16/19 09:06 Phosphorus 4.10 mg/dL (2.5-4.5) 04/09/19 16:25 Magnesium 1.80 mg/dL (1.7-2.3) 04/09/19 16:25 Iron 26 ug/dL (37-170) L 03/31/19 08:20 TIBC 193 mcg/dL (250-450) L 03/31/19 08:20 0.60 mg/dL (0.1-1.2) 04/03/19 03:40 0.2 mg/dL (0-0.2) 04/02/19 07:48 0.5 mg/dL 04/02/19 07:48 AST 594 units/L (5-40) H 04/03/19 03:40 ALT 861 units/L (7-56) H 04/03/19 03:40 299 units/L (35-129) H 04/03/19 03:40 2465 units/L (30-135) H 03/30/19 05:26 CK-MB (CK-2) 52.7 ng/mL (0.0-4.0) H 03/30/19 05:26 CK-MB (CK-2) Rel Index 2.1 (0-4) 03/30/19 05:26 < 0.010 ng/mL (0.00-0.029) 04/06/19 05:20 2.40 mg/dL (0.00-1.30) H 03/30/19 12:57 4.4 g/dL (6.3-8.2) L 04/03/19 03:40 2.1 g/dL (3.9-5) L 04/03/19 03:40 0.9 % 04/03/19 03:40 See scanned result 03/31/19 15:00 Vitamin B12 > 2000 pg/mL (211-911) H 03/31/19 08:20 > 20 ng/mL (7.3-26.0) 03/31/19 08:20 HCG, Qual Negative (Negative) 03/29/19 19:20 Yellow (Yellow) 03/29/19 23:10 Slightly-cloudy (Clear) 03/29/19 23:10 6.0 (5.0-7.0) 03/29/19 23:10 Ur Specific [place] 1.021 (1.003-1.030) 03/29/19 23:10 100 mg/dl mg/dL (Negative) 03/29/19 23:10 >=500 mg/dL (Negative) 03/29/19 23:10 20 mg/dL (Negative) 03/29/19 23:10 Lg (Negative) 03/29/19 23:10 Neg (Negative) 03/29/19 23:10 Neg (Negative) 03/29/19 23:10 < 2.0 mg/dL (<2.0) 03/29/19 23:10 Ur Leukocyte Esterase Neg (Negative) 03/29/19 23:10 1.0 /HPF (0.0-6.0) 03/29/19 23:10 1.0 /HPF (0.0-6.0) 03/29/19 23:10 Few /HPF 03/29/19 23:10 Salicylates 0.8 mg/dL (2.8-20.0) L 03/30/19 Unknown Presumptive negative 03/29/19 23:10 Presumptive negative 03/29/19 23:10 Acetaminophen < 5.0 ug/mL (10.0-30.0) L 03/30/19 Unknown Ur Barbiturates Screen Presumptive negative 03/29/19 23:10 Ur Phencyclidine Scrn Presumptive negative 03/29/19 23:10 Ur Amphetamines Screen Presumptive negative 03/29/19 23:10 U Benzodiazepines Scrn Presumptive negative 03/29/19 23:10 Presumptive negative 03/29/19 23:10 U Marijuana (THC) Screen Presumptive negative 03/29/19 23:10 Disclamer 03/29/19 23:10 Heparin-induced Plt Ab Negative (Negative) 03/31/19 15:00 UF Heparin High Dose 0 % Release 03/31/19 15:00 FABIAN UFH Low Dose 0.1 0 % Release 03/31/19 15:00 FABIAN UFH Low Dose 0.5 0 % Release 03/31/19 15:00 Hepatitis A IgM Ab Non-reactive (NonReactive) 03/30/19 Unknown Hep Bs Antigen Non-reactive (Negative) 03/30/19 Unknown Hep B Core IgM Ab Non-reactive (NonReactive) 03/30/19 Unknown Non-reactive (NonReactive) 03/30/19 Unknown Flexitest 1 H 03/30/19 14:00 Blood Type O POSITIVE 03/30/19 03:30 Antibody Screen Negative 03/30/19 03:30 Crossmatch See Detail 03/30/19 03:30 Active Medications - Current Medications Current Medications: Generic Name Dose Route Start Last Admin Trade Name Freq PRN Reason Stop Dose Admin Acetaminophen 650 mg 03/29/19 23:34 04/20/19 22:05 Tylenol PO 650 mg Q4H PRN Administration Pain MILD(1-3)/Fever >100.5/WARE Albuterol/Ipratropium 1 ampul 04/20/19 20:00 04/21/19 08:35 Duoneb *Not For Prn Use* IH 04/23/19 23:59 1 ampul TIDRT ZAMZAM Administration Lipase/Protease/Amylase 1 each 04/02/19 11:44 Pancreazaaliyah Daniels 10,500 Unit FEEDTUBE PRN PRN For Clogged Feeding Tube Enoxaparin Sodium 40 mg 04/14/19 10:00 04/21/19 09:35 Lovenox SUB-Q 40 mg QDAY@1000 ZAMZAM Administration Famotidine 20 mg 04/02/19 10:00 04/21/19 09:36 Pepcid PO 20 mg BID ZAMZAM Administration Fentanyl 50 mcg 04/05/19 11:00 04/19/19 02:13 Sublimaze IV 50 mcg Q2H PRN Administration Pain , Severe (7-10)/AGITATION Fentanyl 25 mcg 04/14/19 14:00 04/20/19 14:08 Duragesic TD 25 mcg Q3D ZAMZAM Administration Hydrophilic Ointment 1 applic 03/30/19 11:24 04/21/19 09:53 Vaseline Lip Therapy TP 1 applic Q2HR PRN Administration Dry Lips Insulin Glargine 20 units 04/09/19 22:00 04/20/19 21:57 Lantus SUB-Q 20 units QHS ZAMZAM Administration Levetiracetam 500 mg 04/03/19 10:00 04/21/19 09:36 Keppra PO 500 mg BID ZAMZAM Administration Metoprolol Tartrate 5 mg 04/14/19 13:06 04/18/19 18:42 Lopressor IV 5 mg Q6HR PRN Administration Tachyarrhythmias Metoprolol Tartrate 25 mg 04/16/19 10:00 04/21/19 09:35 Lopressor PO 25 mg BID ZAMZAM Administration Multi-Ingred Cream/Lotion/Oil/Oint 1 applic 03/30/19 11:24 04/06/19 11:39 Artificial Tears Ophth Oint OU 1 applic Q4HR PRN Administration Dry Eye(s) Ondansetron HCl 4 mg 03/29/19 23:34 Zofran IV Q8H PRN Nausea And Vomiting Scopolamine 1 each 04/17/19 12:00 04/20/19 11:57 Transderm-Scop TD 1 each Q3D ZAMZAM Administration Simple Syrup 15 ml 04/02/19 11:44 04/14/19 01:53 Simple Syrup FEEDTUBE 15 ml PRN PRN Administration Hypoglycemia Simple Syrup 30 ml 04/02/19 11:44 Simple Syrup FEEDTUBE PRN PRN Hypoglycemia Sodium Bicarbonate 325 mg 04/02/19 11:44 Sodium Bicarbonate FEEDTUBE PRN PRN For Clogged Feeding Tube Sodium Chloride 10 ml 03/30/19 10:00 04/21/19 09:36 Sodium Chloride Flush Syringe 10 Ml IV 10 ml BID ZAMZAM Administration Sodium Chloride 10 ml 03/29/19 23:34 Sodium Chloride Flush Syringe 10 Ml IV PRN PRN LINE FLUSH Nutrition/Malnutrition Assess - Dietary Evaluation Nutrition/Malnutrition Findings: Nutrition Notes Start: 03/30/19 13:14 Freq: Status: Active Protocol: Document 04/18/19 10:55 LM (Rec: 04/18/19 11:07 LM [facility]-[id number]) Nutrition Notes Initial or Follow up Reassessment Current Diagnosis Acute Kidney Injury,Diabetes, Sepsis,Respiratory Failure Other Pertinent Diagnosis s/p trach & PEG, s/p cardiac arrest, DKA, ARF, Shock liver Current Diet Glucerna 1.2 at 50 ml/hr Labs/Tests POC glu 149 Pertinent Medications Reviewed Height 5 ft Weight 42.5 kg [place] Body Weight (kg) 45.45 BMI 18.3 Subjective/Other Information Glucerna running at 50 ml/hr via PEG. Per RN pt is tolerating TF. Percent of energy/protein needs met: 97%/100% Burn Absent Trauma Absent #1 Nutrition Diagnosis Inadequate oral intake Diagnosis Progress(for reassessment Continues documentation) Is patient on ventilator? Yes Is Patient Ambulatory and/or Out of Bed No REE-([facility]-confined to bed) 1276.272 Kcal/Kg value to use for calculation 35 Approximate Energy Requirements Using 1488 kcal/Kg Calculation Used for Recommendations [facility] Additional Notes Protein: 1.2-2g/k-86g/day Fluids: 1ml/kcal Nutrition Intervention Change Diet Order: Continue TF Nutrition Support: Glucerna 1.2 at 50ml/hr with 80ml water flush q4h. Kcal 1,440 Protein (gm) 72 Fluid (mL) 966 Goal #1 Meet at least 75% of energy and protein needs Follow-Up By: 04/25/19 Additional Comments F/U for TF tolerance/rate
[2019-04-21] MEDS: HumaLOG SUB-Q SCH ×2 (13:26→18:47)
--- NOTE | 2019-04-21 14:53 | Progress Note ---
Assessment and Plan Acute hypoxemic respiratory failure, s/p trach to ATP Acute toxic metabolic encephalopathy; MRI consistent with diffuse anoxic injury Diabetic ketoacidosis, resolved. Severe sepsis with shock, resolved Possible aspiration pneumonia. History of polysubstance abuse. Leukocytosis. Elevated serum transaminases,resolved Hyponatremia resolved Anemia that is macrocytic. History of seizure disorder. Severe metabolic acidosis-resolved Acute kidney injury, possibly on chronic -trach care, airway clearance techniques- add scopolamine patch -start bronchodilators with pulmonary hygiene per RT - continue to wean supplemental O2 to keep O2 sats > 90% - VTE prophylaxis-enoxaparin - Stress ulcer prophylaxis - continue accuchecks with glycemic control per SSI for target blood glucose 140-180 mg/dL - continue Keppra for seizures - continue mobility protocols / off loading for pressure ulcer prevention - continue other care per attending / other consultants -discharge planning CONDITION: FAIR PROGNOSIS: POOR CODE STATUS:DNAR Subjective Date of service: 04/21/19 Principal diagnosis: Ac Hypoxemic Resp Failure; DKA; Severe sepsis with shock; ANGELICA Interval history: Patient is seen today for: Acute Hypoxemic Resp Failure; Ac toxic metabolic encephalopathy; DKA; Severe sepsis with shock; Possible aspiration pneumonia; History of polysubstance abuse; History of seizure disorder; Acute kidney injury, possibly on chronic Seen and examined at bedside; 24hour events reviewed; nursing and respiratory care staff consulted; no adverse overnight events reported to me; resting peacefully in bed; AMS is persistent; s/p tracheostomy to ATP no emesis or overt aspiration and no high grade fevers. Copious white secretions, strong cough, no acute changes reported per RN and RT Vitals, labs,medications, chart reviewed. Objective Vital Signs - 12hr 04/21/19 04/21/19 04/21/19 03:00 04:00 04:27 Temperature 97.4 F L 98.4 F Pulse Rate 96 H 107 H Pulse Rate [ Anterior Bilateral] Pulse Rate [ 98 H From Monitor] Respiratory 20 18 Rate Respiratory Rate [Anterior Bilateral] Blood Pressure 109/75 114/81 O2 Sat by Pulse 98 97 Oximetry O2 Sat by Pulse Oximetry [ Assessment] 04/21/19 04/21/19 04/21/19 05:00 05:13 06:00 Temperature Pulse Rate 95 H 93 H Pulse Rate [ Anterior Bilateral] Pulse Rate [ From Monitor] Respiratory 30 H 18 Rate Respiratory Rate [Anterior Bilateral] Blood Pressure 99/67 108/75 O2 Sat by Pulse 95 97 Oximetry O2 Sat by Pulse 96 Oximetry [ Assessment] 04/21/19 04/21/19 04/21/19 07:00 08:00 08:36 Temperature 98.5 F Pulse Rate 90 95 H Pulse Rate [ 98 H Anterior Bilateral] Pulse Rate [ 99 H From Monitor] Respiratory 27 H 23 Rate Respiratory 31 H Rate [Anterior Bilateral] Blood Pressure 113/78 105/77 O2 Sat by Pulse 98 93 90 Oximetry O2 Sat by Pulse 92 Oximetry [ Assessment] 04/21/19 04/21/19 04/21/19 08:46 09:00 09:35 Temperature Pulse Rate 101 H 101 H Pulse Rate [ Anterior Bilateral] Pulse Rate [ From Monitor] Respiratory 27 H Rate Respiratory Rate [Anterior Bilateral] Blood Pressure 106/67 104/74 O2 Sat by Pulse 95 92 Oximetry O2 Sat by Pulse Oximetry [ Assessment] 04/21/19 04/21/19 04/21/19 10:00 11:00 12:00 Temperature 98.8 F Pulse Rate 96 H 96 H 97 H Pulse Rate [ Anterior Bilateral] Pulse Rate [ 103 H From Monitor] Respiratory 27 H 28 H 20 Rate Respiratory Rate [Anterior Bilateral] Blood Pressure 110/83 111/79 110/75 O2 Sat by Pulse 98 96 95 Oximetry O2 Sat by Pulse Oximetry [ Assessment] 04/21/19 13:00 Temperature Pulse Rate 97 H Pulse Rate [ Anterior Bilateral] Pulse Rate [ From Monitor] Respiratory 20 Rate Respiratory Rate [Anterior Bilateral] Blood Pressure 116/78 O2 Sat by Pulse 99 Oximetry O2 Sat by Pulse Oximetry [ Assessment] Constitutional: no acute distress, other (young CF normocephalic and atraumatic s/p tracheostomy to ATP) Eyes: non-icteric ENT: oropharynx moist, other Neck: supple, no lymphadenopathy, no JVD Effort: mildly labored Ascultation: Bilateral: clear, diminished breath sounds, rhonchi Percussion: Bilateral: not dull Cardiovascular: regular rate and rhythm, other (sinus tachycardia) Gastrointestinal: normoactive bowel sounds, soft, non-tender, non-distended, other (PEG tube) Integumentary: erythema (noted on upper extremity) Extremities: no cyanosis, pink and warm, pulses normal, no ischemia or pe techiae, edema (trace to 1+) Neurologic: unable to assess (awake, alert, not obeying commands) Psychiatric: other (unable to assess) CBC and BMP: 04/16/19 09:06 04/16/19 09:06 ABG, PT/INR, D-dimer: ABG POC ABG pH 7.565 (7.35-7.45) H 04/19/19 04:35 ABG pH 7.396 pH Units (7.350-7.450) 04/03/19 05:35 POC ABG pCO2 36.2 (35-45) 04/19/19 04:35 ABG pCO2 32.2 mm Hg 04/03/19 05:35 POC ABG pO2 88 (80-105) 04/19/19 04:35 ABG pO2 97.7 mm Hg (80.0-90.0) H 04/03/19 05:35 POC ABG HCO3 32.8 (22-26 mml/L) 04/19/19 04:35 POC ABG Total CO2 34 (23-27mmol/L) 04/19/19 04:35 POC ABG O2 Sat 98 04/19/19 04:35 ABG O2 Saturation 97.6 % (95.0-99.0) 04/03/19 05:35 PT/INR, D-dimer PT 13.9 Sec. (12.2-14.9) 04/01/19 17:14 INR 1.10 (0.87-1.13) 04/01/19 17:14 4526.86 ng/mlDDU (0-234) H 04/06/19 00:06 Abnormal lab findings: Abnormal Labs 03/29/19 03/29/19 03/29/19 19:11 19:20 19:20 WBC 26.7 H RBC 2.52 L Hgb 8.1 L Hct MCV 148 H MCH MCHC 22 L RDW 18.5 H Plt Count [place] % (Auto) Lymph # Seg Neuts % (Manual) 82.0 H Lymphocytes % (Manual) 7.0 L Nucleated RBC % Seg Neutrophils # Man 21.9 H Lymphocytes # (Manual) Monocytes # (Manual) 1.9 H PT 21.8 H INR 1.95 H APTT 74.5 H* D-Dimer POC ABG pH ABG pH POC ABG pCO2 POC ABG pO2 ABG pO2 ABG HCO3 ABG O2 Saturation ABG Base Excess ABG Hemoglobin VBG pH Oxyhemoglobin Sodium Potassium Chloride Carbon Dioxide BUN Creatinine Glucose POC Glucose > 500 H Lactic Acid Calcium Phosphorus Magnesium Iron TIBC Direct Bilirubin AST ALT Alkaline Phosphatase Total Creatine Kinase CK-MB (CK-2) C-Reactive Protein Total Protein Albumin Vitamin B12 Salicylates Acetaminophen Miscellaneous Test Crossmatch 03/29/19 03/29/19 03/29/19 19:20 19:47 20:59 WBC RBC Hgb Hct MCV MCH MCHC RDW Plt Count [place] % (Auto) Lymph # Seg Neuts % (Manual) Lymphocytes % (Manual) Nucleated RBC % Seg Neutrophils # Man Lymphocytes # (Manual) Monocytes # (Manual) PT INR APTT D-Dimer POC ABG pH 6.892 L ABG pH POC ABG pCO2 POC ABG pO2 236 H ABG pO2 ABG HCO3 ABG O2 Saturation ABG Base Excess ABG Hemoglobin VBG pH 6.800 L* Oxyhemoglobin Sodium 118 L* Potassium 9.0 H* Chloride 64.5 L Carbon Dioxide 7 L* BUN 53 H Creatinine 2.1 H Glucose 2196 H* POC Glucose Lactic Acid Calcium 12.4 H* Phosphorus Magnesium Iron TIBC Direct Bilirubin AST 3900 H ALT 1034 H Alkaline Phosphatase 316 H Total Creatine Kinase CK-MB (CK-2) C-Reactive Protein Total Protein 5.1 L Albumin 2.8 L Vitamin B12 Salicylates Acetaminophen Miscellaneous Test Crossmatch 03/29/19 03/29/19 03/29/19 22:45 22:45 22:45 WBC RBC Hgb Hct MCV MCH MCHC RDW Plt Count [place] % (Auto) Lymph # Seg Neuts % (Manual) Lymphocytes % (Manual) Nucleated RBC % Seg Neutrophils # Man Lymphocytes # (Manual) Monocytes # (Manual) PT INR APTT D-Dimer POC ABG pH ABG pH POC ABG pCO2 POC ABG pO2 ABG pO2 ABG HCO3 ABG O2 Saturation ABG Base Excess ABG Hemoglobin VBG pH Oxyhemoglobin Sodium 132 L D Potassium 7.0 H* Chloride 84.3 L Carbon Dioxide 3 L* BUN 48 H Creatinine 1.8 H Glucose 1779 H* POC Glucose Lactic Acid Calcium Phosphorus 21.70 H Magnesium 4.70 H Iron TIBC Direct Bilirubin AST ALT Alkaline Phosphatase Total Creatine Kinase 363 H CK-MB (CK-2) C-Reactive Protein Total Protein Albumin Vitamin B12 Salicylates Acetaminophen Miscellaneous Test Crossmatch 03/29/19 03/29/19 03/30/19 Unknown Unknown 00:11 WBC RBC Hgb Hct MCV MCH MCHC RDW Plt Count [place] % (Auto) Lymph # Seg Neuts % (Manual) Lymphocytes % (Manual) Nucleated RBC % Seg Neutrophils # Man Lymphocytes # (Manual) Monocytes # (Manual) PT INR APTT D-Dimer POC ABG pH ABG pH POC ABG pCO2 POC ABG pO2 ABG pO2 ABG HCO3 ABG O2 Saturation ABG Base Excess ABG Hemoglobin VBG pH Oxyhemoglobin Sodium 122 L Potassium 7.9 H* 6.4 H* Chloride 75.3 L 89.7 L Carbon Dioxide 3 L* 12 L D BUN 52 H 46 H Creatinine 2.0 H 1.7 H Glucose 2043 H* 1591 H* POC Glucose Lactic Acid Calcium 7.8 L Phosphorus 19.30 H Magnesium 3.90 H Iron TIBC Direct Bilirubin AST ALT Alkaline Phosphatase Total Creatine Kinase CK-MB (CK-2) C-Reactive Protein Total Protein Albumin Vitamin B12 Salicylates Acetaminophen Miscellaneous Test Crossmatch 03/30/19 03/30/19 03/30/19 00:11 02:14 02:14 WBC RBC Hgb Hct MCV MCH MCHC RDW Plt Count [place] % (Auto) Lymph # Seg Neuts % (Manual) Lymphocytes % (Manual) Nucleated RBC % Seg Neutrophils # Man Lymphocytes # (Manual) Monocytes # (Manual) PT INR APTT D-Dimer POC ABG pH ABG pH POC ABG pCO2 POC ABG pO2 ABG pO2 ABG HCO3 ABG O2 Saturation ABG Base Excess ABG Hemoglobin VBG pH Oxyhemoglobin Sodium Potassium Chloride Carbon Dioxide 9 L* BUN 45 H Creatinine 1.7 H Glucose 1155 H* POC Glucose Lactic Acid Calcium 7.9 L Phosphorus 10.90 H D 5.30 H D Magnesium 3.10 H 2.90 H Iron TIBC Direct Bilirubin AST ALT Alkaline Phosphatase Total Creatine Kinase CK-MB (CK-2) C-Reactive Protein Total Protein Albumin Vitamin B12 Salicylates Acetaminophen Miscellaneous Test Crossmatch 03/30/19 03/30/19 03/30/19 03:15 03:30 04:23 WBC 18.0 H RBC 2.31 L Hgb 7.3 L Hct 23.8 L D MCV 103 H MCH MCHC RDW 17.1 H Plt Count [place] % (Auto) Lymph # Seg Neuts % (Manual) 79.0 H Lymphocytes % (Manual) Nucleated RBC % Seg Neutrophils # Man 14.2 H Lymphocytes # (Manual) Monocytes # (Manual) PT INR APTT D-Dimer POC ABG pH 7.251 L ABG pH POC ABG pCO2 POC ABG pO2 156 H ABG pO2 ABG HCO3 ABG O2 Saturation ABG Base Excess ABG Hemoglobin VBG pH Oxyhemoglobin Sodium Potassium Chloride Carbon Dioxide BUN Creatinine Glucose POC Glucose Lactic Acid Calcium Phosphorus Magnesium Iron TIBC Direct Bilirubin AST ALT Alkaline Phosphatase Total Creatine Kinase CK-MB (CK-2) C-Reactive Protein Total Protein Albumin Vitamin B12 Salicylates Acetaminophen Miscellaneous Test Crossmatch See Detail 03/30/19 03/30/19 03/30/19 05:26 05:26 10:38 WBC RBC Hgb Hct MCV MCH MCHC RDW Plt Count [place] % (Auto) Lymph # Seg Neuts % (Manual) Lymphocytes % (Manual) Nucleated RBC % Seg Neutrophils # Man Lymphocytes # (Manual) Monocytes # (Manual) PT INR APTT D-Dimer POC ABG pH ABG pH POC ABG pCO2 POC ABG pO2 ABG pO2 ABG HCO3 ABG O2 Saturation ABG Base Excess ABG Hemoglobin VBG pH Oxyhemoglobin Sodium 158 H D Potassium 3.5 L Chloride 109.3 H Carbon Dioxide 19 L D BUN 40 H Creatinine 1.5 H Glucose 760 H* POC Glucose 380 H Lactic Acid Calcium 7.3 L Phosphorus Magnesium 2.60 H Iron TIBC Direct Bilirubin AST 00949 H ALT 2156 H Alkaline Phosphatase 271 H Total Creatine Kinase 2465 H CK-MB (CK-2) 52.7 H C-Reactive Protein Total Protein 4.5 L Albumin 2.4 L Vitamin B12 Salicylates Acetaminophen Miscellaneous Test Crossmatch 03/30/19 03/30/19 03/30/19 11:08 12:25 12:57 WBC RBC Hgb Hct MCV MCH MCHC RDW Plt Count [place] % (Auto) Lymph # Seg Neuts % (Manual) Lymphocytes % (Manual) Nucleated RBC % Seg Neutrophils # Man Lymphocytes # (Manual) Monocytes # (Manual) PT INR APTT D-Dimer POC ABG pH ABG pH POC ABG pCO2 POC ABG pO2 ABG pO2 ABG HCO3 ABG O2 Saturation ABG Base Excess ABG Hemoglobin VBG pH Oxyhemoglobin Sodium 156 H Potassium 3.2 L Chloride 116.4 H Carbon Dioxide 21 L BUN 37 H Creatinine Glucose 162 H POC Glucose 263 H 196 H Lactic Acid Calcium 7.2 L Phosphorus Magnesium Iron TIBC Direct Bilirubin AST ALT Alkaline Phosphatase Total Creatine Kinase CK-MB (CK-2) C-Reactive Protein Total Protein Albumin Vitamin B12 Salicylates Acetaminophen Miscellaneous Test Crossmatch 03/30/19 03/30/19 03/30/19 12:57 12:57 12:57 WBC RBC Hgb Hct MCV MCH MCHC RDW Plt Count [place] % (Auto) Lymph # Seg Neuts % (Manual) Lymphocytes % (Manual) Nucleated RBC % Seg Neutrophils # Man Lymphocytes # (Manual) Monocytes # (Manual) PT 21.0 H INR 1.86 H APTT D-Dimer POC ABG pH ABG pH POC ABG pCO2 POC ABG pO2 ABG pO2 ABG HCO3 ABG O2 Saturation ABG Base Excess ABG Hemoglobin VBG pH Oxyhemoglobin Sodium Potassium Chloride Carbon Dioxide BUN Creatinine Glucose POC Glucose Lactic Acid 9.00 H* Calcium Phosphorus Magnesium Iron TIBC Direct Bilirubin AST ALT Alkaline Phosphatase Total Creatine Kinase CK-MB (CK-2) C-Reactive Protein 2.40 H Total Protein Albumin Vitamin B12 Salicylates Acetaminophen Miscellaneous Test Crossmatch 03/30/19 03/30/19 03/30/19 13:23 14:00 14:47 WBC RBC Hgb Hct MCV MCH MCHC RDW Plt Count [place] % (Auto) Lymph # Seg Neuts % (Manual) Lymphocytes % (Manual) Nucleated RBC % Seg Neutrophils # Man Lymphocytes # (Manual) Monocytes # (Manual) PT INR APTT D-Dimer POC ABG pH ABG pH POC ABG pCO2 POC ABG pO2 ABG pO2 ABG HCO3 ABG O2 Saturation ABG Base Excess ABG Hemoglobin VBG pH Oxyhemoglobin Sodium Potassium Chloride Carbon Dioxide BUN Creatinine Glucose POC Glucose 176 H 245 H Lactic Acid Calcium Phosphorus Magnesium Iron TIBC Direct Bilirubin AST ALT Alkaline Phosphatase Total Creatine Kinase CK-MB (CK-2) C-Reactive Protein Total Protein Albumin Vitamin B12 Salicylates Acetaminophen Miscellaneous Test Flexitest 1 H Crossmatch 03/30/19 03/30/19 03/30/19 16:11 17:11 17:46 WBC RBC Hgb Hct MCV MCH MCHC RDW Plt Count [place] % (Auto) Lymph # Seg Neuts % (Manual) Lymphocytes % (Manual) Nucleated RBC % Seg Neutrophils # Man Lymphocytes # (Manual) Monocytes # (Manual) PT INR APTT D-Dimer POC ABG pH ABG pH POC ABG pCO2 POC ABG pO2 ABG pO2 ABG HCO3 ABG O2 Saturation ABG Base Excess ABG Hemoglobin VBG pH Oxyhemoglobin Sodium Potassium Chloride Carbon Dioxide BUN Creatinine Glucose POC Glucose 181 H 167 H 125 H Lactic Acid Calcium Phosphorus Magnesium Iron TIBC Direct Bilirubin AST ALT Alkaline Phosphatase Total Creatine Kinase CK-MB (CK-2) C-Reactive Protein Total Protein Albumin Vitamin B12 Salicylates Acetaminophen Miscellaneous Test Crossmatch 03/30/19 03/30/19 03/30/19 18:59 21:31 22:19 WBC RBC Hgb Hct MCV MCH MCHC RDW Plt Count [place] % (Auto) Lymph # Seg Neuts % (Manual) Lymphocytes % (Manual) Nucleated RBC % Seg Neutrophils # Man Lymphocytes # (Manual) Monocytes # (Manual) PT INR APTT D-Dimer POC ABG pH ABG pH POC ABG pCO2 POC ABG pO2 ABG pO2 ABG HCO3 ABG O2 Saturation ABG Base Excess ABG Hemoglobin VBG pH Oxyhemoglobin Sodium Potassium Chloride Carbon Dioxide BUN Creatinine Glucose POC Glucose 140 H 166 H 115 H Lactic Acid Calcium Phosphorus Magnesium Iron TIBC Direct Bilirubin AST ALT Alkaline Phosphatase Total Creatine Kinase CK-MB (CK-2) C-Reactive Protein Total Protein Albumin Vitamin B12 Salicylates Acetaminophen Miscellaneous Test Crossmatch 03/30/19 03/30/19 03/30/19 23:13 Unknown Unknown WBC RBC Hgb Hct MCV MCH MCHC RDW Plt Count [place] % (Auto) Lymph # Seg Neuts % (Manual) Lymphocytes % (Manual) Nucleated RBC % Seg Neutrophils # Man Lymphocytes # (Manual) Monocytes # (Manual) PT INR APTT D-Dimer POC ABG pH ABG pH POC ABG pCO2 POC ABG pO2 ABG pO2 47.8 L ABG HCO3 18.8 L ABG O2 Saturation 83.8 L ABG Base Excess -5.4 L ABG Hemoglobin 6.8 L VBG pH Oxyhemoglobin 81.8 L Sodium 157 H Potassium 3.3 L Chloride 117.9 H Carbon Dioxide 20 L BUN 36 H Creatinine Glucose 150 H POC Glucose 112 H Lactic Acid Calcium 7.2 L Phosphorus Magnesium Iron TIBC Direct Bilirubin AST ALT Alkaline Phosphatase Total Creatine Kinase CK-MB (CK-2) C-Reactive Protein Total Protein Albumin Vitamin B12 Salicylates Acetaminophen Miscellaneous Test Crossmatch 03/30/19 03/30/19 03/31/19 Unknown Unknown 00:03 WBC RBC Hgb Hct MCV MCH MCHC RDW Plt Count [place] % (Auto) Lymph # Seg Neuts % (Manual) Lymphocytes % (Manual) Nucleated RBC % Seg Neutrophils # Man Lymphocytes # (Manual) Monocytes # (Manual) PT INR APTT D-Dimer POC ABG pH ABG pH POC ABG pCO2 POC ABG pO2 ABG pO2 ABG HCO3 ABG O2 Saturation ABG Base Excess ABG Hemoglobin VBG pH Oxyhemoglobin Sodium Potassium Chloride Carbon Dioxide BUN Creatinine Glucose POC Glucose 188 H Lactic Acid Calcium Phosphorus Magnesium Iron TIBC Direct Bilirubin AST ALT Alkaline Phosphatase Total Creatine Kinase CK-MB (CK-2) C-Reactive Protein Total Protein Albumin Vitamin B12 Salicylates 0.8 L Acetaminophen < 5.0 L Miscellaneous Test Crossmatch 03/31/19 03/31/19 03/31/19 01:18 03:07 03:50 WBC RBC Hgb Hct MCV MCH MCHC RDW Plt Count [place] % (Auto) Lymph # Seg Neuts % (Manual) Lymphocytes % (Manual) Nucleated RBC % Seg Neutrophils # Man Lymphocytes # (Manual) Monocytes # (Manual) PT INR APTT D-Dimer POC ABG pH ABG pH 7.525 H POC ABG pCO2 POC ABG pO2 ABG pO2 178.0 H ABG HCO3 19.5 L ABG O2 Saturation 99.2 H ABG Base Excess -3.1 L ABG Hemoglobin 5.8 L VBG pH Oxyhemoglobin Sodium Potassium Chloride Carbon Dioxide BUN Creatinine Glucose POC Glucose 114 H 107 H Lactic Acid Calcium Phosphorus Magnesium Iron TIBC Direct Bilirubin AST ALT Alkaline Phosphatase Total Creatine Kinase CK-MB (CK-2) C-Reactive Protein Total Protein Albumin Vitamin B12 Salicylates Acetaminophen Miscellaneous Test Crossmatch 03/31/19 03/31/19 03/31/19 03:51 03:51 04:05 WBC RBC 1.89 L Hgb 6.1 L Hct 18.2 L* MCV MCH MCHC RDW 17.7 H Plt Count 89 L [place] % (Auto) Lymph # Seg Neuts % (Manual) 86.0 H Lymphocytes % (Manual) 10.0 L Nucleated RBC % 1.0 H Seg Neutrophils # Man Lymphocytes # (Manual) 0.7 L Monocytes # (Manual) PT INR APTT D-Dimer POC ABG pH ABG pH POC ABG pCO2 POC ABG pO2 ABG pO2 ABG HCO3 ABG O2 Saturation ABG Base Excess ABG Hemoglobin VBG pH Oxyhemoglobin Sodium 151 H Potassium 3.2 L Chloride 119.4 H Carbon Dioxide 17 L BUN 35 H Creatinine Glucose 139 H POC Glucose 153 H Lactic Acid Calcium 7.1 L Phosphorus Magnesium Iron TIBC Direct Bilirubin AST ALT Alkaline Phosphatase Total Creatine Kinase CK-MB (CK-2) C-Reactive Protein Total Protein Albumin Vitamin B12 Salicylates Acetaminophen Miscellaneous Test Crossmatch 03/31/19 03/31/19 03/31/19 05:05 05:35 06:23 WBC RBC Hgb Hct MCV MCH MCHC RDW Plt Count [place] % (Auto) Lymph # Seg Neuts % (Manual) Lymphocytes % (Manual) Nucleated RBC % Seg Neutrophils # Man Lymphocytes # (Manual) Monocytes # (Manual) PT INR APTT D-Dimer POC ABG pH ABG pH POC ABG pCO2 POC ABG pO2 ABG pO2 ABG HCO3 ABG O2 Saturation ABG Base Excess ABG Hemoglobin VBG pH Oxyhemoglobin Sodium Potassium Chloride Carbon Dioxide BUN Creatinine Glucose POC Glucose 176 H 133 H Lactic Acid 3.20 H* Calcium Phosphorus Magnesium Iron TIBC Direct Bilirubin AST ALT Alkaline Phosphatase Total Creatine Kinase CK-MB (CK-2) C-Reactive Protein Total Protein Albumin Vitamin B12 Salicylates Acetaminophen Miscellaneous Test Crossmatch 03/31/19 03/31/19 03/31/19 07:50 07:51 08:20 WBC RBC Hgb Hct MCV MCH MCHC RDW Plt Count [place] % (Auto) Lymph # Seg Neuts % (Manual) Lymphocytes % (Manual) Nucleated RBC % Seg Neutrophils # Man Lymphocytes # (Manual) Monocytes # (Manual) PT INR APTT D-Dimer POC ABG pH ABG pH POC ABG pCO2 POC ABG pO2 ABG pO2 ABG HCO3 ABG O2 Saturation ABG Base Excess ABG Hemoglobin VBG pH Oxyhemoglobin Sodium Potassium Chloride Carbon Dioxide BUN Creatinine Glucose POC Glucose 135 H Lactic Acid 3.30 H* Calcium Phosphorus Magnesium Iron 26 L TIBC 193 L Direct Bilirubin AST ALT Alkaline Phosphatase Total Creatine Kinase CK-MB (CK-2) C-Reactive Protein Total Protein Albumin Vitamin B12 Salicylates Acetaminophen Miscellaneous Test Crossmatch 03/31/19 03/31/19 03/31/19 08:20 08:20 09:06 WBC RBC Hgb Hct MCV MCH MCHC RDW Plt Count [place] % (Auto) Lymph # Seg Neuts % (Manual) Lymphocytes % (Manual) Nucleated RBC % Seg Neutrophils # Man Lymphocytes # (Manual) Monocytes # (Manual) PT INR APTT D-Dimer POC ABG pH ABG pH POC ABG pCO2 POC ABG pO2 ABG pO2 ABG HCO3 ABG O2 Saturation ABG Base Excess ABG Hemoglobin VBG pH Oxyhemoglobin Sodium 153 H Potassium 3.0 L Chloride 118.9 H Carbon Dioxide 18 L BUN 37 H Creatinine Glucose 132 H POC Glucose 145 H Lactic Acid Calcium 7.1 L Phosphorus Magnesium Iron TIBC Direct Bilirubin AST ALT Alkaline Phosphatase Total Creatine Kinase CK-MB (CK-2) C-Reactive Protein Total Protein Albumin Vitamin B12 > 2000 H Salicylates Acetaminophen Miscellaneous Test Crossmatch 03/31/19 03/31/19 03/31/19 10:47 11:49 13:04 WBC RBC Hgb Hct MCV MCH MCHC RDW Plt Count [place] % (Auto) Lymph # Seg Neuts % (Manual) Lymphocytes % (Manual) Nucleated RBC % Seg Neutrophils # Man Lymphocytes # (Manual) Monocytes # (Manual) PT INR APTT D-Dimer POC ABG pH ABG pH POC ABG pCO2 POC ABG pO2 ABG pO2 ABG HCO3 ABG O2 Saturation ABG Base Excess ABG Hemoglobin VBG pH Oxyhemoglobin Sodium Potassium Chloride Carbon Dioxide BUN Creatinine Glucose POC Glucose 153 H 174 H 214 H Lactic Acid Calcium Phosphorus Magnesium Iron TIBC Direct Bilirubin AST ALT Alkaline Phosphatase Total Creatine Kinase CK-MB (CK-2) C-Reactive Protein Total Protein Albumin Vitamin B12 Salicylates Acetaminophen Miscellaneous Test Crossmatch 03/31/19 03/31/19 03/31/19 13:42 15:08 16:08 WBC RBC Hgb Hct MCV MCH MCHC RDW Plt Count [place] % (Auto) Lymph # Seg Neuts % (Manual) Lymphocytes % (Manual) Nucleated RBC % Seg Neutrophils # Man Lymphocytes # (Manual) Monocytes # (Manual) PT INR APTT D-Dimer POC ABG pH ABG pH POC ABG pCO2 POC ABG pO2 ABG pO2 ABG HCO3 ABG O2 Saturation ABG Base Excess ABG Hemoglobin VBG pH Oxyhemoglobin Sodium Potassium Chloride Carbon Dioxide BUN Creatinine Glucose POC Glucose 186 H 136 H 150 H Lactic Acid Calcium Phosphorus Magnesium Iron TIBC Direct Bilirubin AST ALT Alkaline Phosphatase Total Creatine Kinase CK-MB (CK-2) C-Reactive Protein Total Protein Albumin Vitamin B12 Salicylates Acetaminophen Miscellaneous Test Crossmatch 03/31/19 03/31/19 03/31/19 17:11 17:30 17:30 WBC RBC Hgb 7.7 L Hct 23.0 L MCV MCH MCHC RDW Plt Count [place] % (Auto) Lymph # Seg Neuts % (Manual) Lymphocytes % (Manual) Nucleated RBC % Seg Neutrophils # Man Lymphocytes # (Manual) Monocytes # (Manual) PT INR APTT D-Dimer POC ABG pH ABG pH POC ABG pCO2 POC ABG pO2 ABG pO2 ABG HCO3 ABG O2 Saturation ABG Base Excess ABG Hemoglobin VBG pH Oxyhemoglobin Sodium 153 H Potassium 3.5 L Chloride 119.3 H Carbon Dioxide 20 L BUN 34 H Creatinine Glucose 162 H POC Glucose 140 H Lactic Acid Calcium 7.6 L Phosphorus Magnesium Iron TIBC Direct Bilirubin AST ALT Alkaline Phosphatase Total Creatine Kinase CK-MB (CK-2) C-Reactive Protein Total Protein Albumin Vitamin B12 Salicylates Acetaminophen Miscellaneous Test Crossmatch 03/31/19 03/31/19 03/31/19 17:59 18:58 20:28 WBC RBC Hgb Hct MCV MCH MCHC RDW Plt Count [place] % (Auto) Lymph # Seg Neuts % (Manual) Lymphocytes % (Manual) Nucleated RBC % Seg Neutrophils # Man Lymphocytes # (Manual) Monocytes # (Manual) PT INR APTT D-Dimer POC ABG pH ABG pH POC ABG pCO2 POC ABG pO2 ABG pO2 ABG HCO3 ABG O2 Saturation ABG Base Excess ABG Hemoglobin VBG pH Oxyhemoglobin Sodium Potassium Chloride Carbon Dioxide BUN Creatinine Glucose POC Glucose 156 H 152 H 138 H Lactic Acid Calcium Phosphorus Magnesium Iron TIBC Direct Bilirubin AST ALT Alkaline Phosphatase Total Creatine Kinase CK-MB (CK-2) C-Reactive Protein Total Protein Albumin Vitamin B12 Salicylates Acetaminophen Miscellaneous Test Crossmatch 03/31/19 03/31/19 03/31/19 21:09 22:15 23:10 WBC RBC Hgb Hct MCV MCH MCHC RDW Plt Count [place] % (Auto) Lymph # Seg Neuts % (Manual) Lymphocytes % (Manual) Nucleated RBC % Seg Neutrophils # Man Lymphocytes # (Manual) Monocytes # (Manual) PT INR APTT D-Dimer POC ABG pH ABG pH POC ABG pCO2 POC ABG pO2 ABG pO2 ABG HCO3 ABG O2 Saturation ABG Base Excess ABG Hemoglobin VBG pH Oxyhemoglobin Sodium Potassium Chloride Carbon Dioxide BUN Creatinine Glucose POC Glucose 136 H 137 H 148 H Lactic Acid Calcium Phosphorus Magnesium Iron TIBC Direct Bilirubin AST ALT Alkaline Phosphatase Total Creatine Kinase CK-MB (CK-2) C-Reactive Protein Total Protein Albumin Vitamin B12 Salicylates Acetaminophen Miscellaneous Test Crossmatch 04/01/19 04/01/19 04/01/19 00:05 01:17 02:11 WBC RBC Hgb Hct MCV MCH MCHC RDW Plt Count [place] % (Auto) Lymph # Seg Neuts % (Manual) Lymphocytes % (Manual) Nucleated RBC % Seg Neutrophils # Man Lymphocytes # (Manual) Monocytes # (Manual) PT INR APTT D-Dimer POC ABG pH ABG pH POC ABG pCO2 POC ABG pO2 ABG pO2 ABG HCO3 ABG O2 Saturation ABG Base Excess ABG Hemoglobin VBG pH Oxyhemoglobin Sodium Potassium Chloride Carbon Dioxide BUN Creatinine Glucose POC Glucose 143 H 151 H 155 H Lactic Acid Calcium Phosphorus Magnesium Iron TIBC Direct Bilirubin AST ALT Alkaline Phosphatase Total Creatine Kinase CK-MB (CK-2) C-Reactive Protein Total Protein Albumin Vitamin B12 Salicylates Acetaminophen Miscellaneous Test Crossmatch 04/01/19 04/01/19 04/01/19 03:12 04:03 04:16 WBC RBC Hgb Hct MCV MCH MCHC RDW Plt Count [place] % (Auto) Lymph # Seg Neuts % (Manual) Lymphocytes % (Manual) Nucleated RBC % Seg Neutrophils # Man Lymphocytes # (Manual) Monocytes # (Manual) PT INR APTT D-Dimer POC ABG pH ABG pH POC ABG pCO2 POC ABG pO2 ABG pO2 ABG HCO3 ABG O2 Saturation ABG Base Excess ABG Hemoglobin VBG pH Oxyhemoglobin Sodium Potassium Chloride Carbon Dioxide BUN Creatinine Glucose POC Glucose 140 H 143 H 142 H Lactic Acid Calcium Phosphorus Magnesium Iron TIBC Direct Bilirubin AST ALT Alkaline Phosphatase Total Creatine Kinase CK-MB (CK-2) C-Reactive Protein Total Protein Albumin Vitamin B12 Salicylates Acetaminophen Miscellaneous Test Crossmatch 04/01/19 04/01/1919 05:01 05:01 05:08 WBC RBC 2.05 L Hgb 6.8 L Hct 20.5 L MCV 100 H MCH 33 H MCHC RDW 17.7 H Plt Count 53 L [place] % (Auto) Lymph # Seg Neuts % (Manual) 71.0 H Lymphocytes % (Manual) Nucleated RBC % Seg Neutrophils # Man Lymphocytes # (Manual) Monocytes # (Manual) PT INR APTT D-Dimer POC ABG pH ABG pH POC ABG pCO2 POC ABG pO2 ABG pO2 ABG HCO3 ABG O2 Saturation ABG Base Excess ABG Hemoglobin VBG pH Oxyhemoglobin Sodium Potassium Chloride Carbon Dioxide BUN Creatinine Glucose POC Glucose 119 H Lactic Acid Calcium Phosphorus Magnesium Iron TIBC Direct Bilirubin 0.3 H AST 4601 H ALT 1542 H Alkaline Phosphatase 185 H Total Creatine Kinase CK-MB (CK-2) C-Reactive Protein Total Protein 3.8 L Albumin 1.6 L Vitamin B12 Salicylates Acetaminophen Miscellaneous Test Crossmatch 04/01/19 04/01/19 04/01/19 05:23 06:37 08:15 WBC RBC Hgb Hct MCV MCH MCHC RDW Plt Count [place] % (Auto) Lymph # Seg Neuts % (Manual) Lymphocytes % (Manual) Nucleated RBC % Seg Neutrophils # Man Lymphocytes # (Manual) Monocytes # (Manual) PT INR APTT D-Dimer POC ABG pH ABG pH POC ABG pCO2 POC ABG pO2 ABG pO2 ABG HCO3 ABG O2 Saturation ABG Base Excess ABG Hemoglobin VBG pH Oxyhemoglobin Sodium Potassium Chloride Carbon Dioxide BUN Creatinine Glucose POC Glucose 115 H 124 H 138 H Lactic Acid Calcium Phosphorus Magnesium Iron TIBC Direct Bilirubin AST ALT Alkaline Phosphatase Total Creatine Kinase CK-MB (CK-2) C-Reactive Protein Total Protein Albumin Vitamin B12 Salicylates Acetaminophen Miscellaneous Test Crossmatch 04/01/19 04/01/19 04/01/19 09:50 10:10 10:31 WBC RBC Hgb 6.5 L Hct 19.2 L* MCV MCH MCHC RDW Plt Count [place] % (Auto) Lymph # Seg Neuts % (Manual) Lymphocytes % (Manual) Nucleated RBC % Seg Neutrophils # Man Lymphocytes # (Manual) Monocytes # (Manual) PT INR APTT D-Dimer POC ABG pH ABG pH POC ABG pCO2 POC ABG pO2 ABG pO2 ABG HCO3 ABG O2 Saturation ABG Base Excess ABG Hemoglobin VBG pH Oxyhemoglobin Sodium 149 H Potassium 3.5 L Chloride 119.9 H Carbon Dioxide 21 L BUN 33 H Creatinine 0.5 L Glucose 142 H POC Glucose 185 H Lactic Acid Calcium 7.3 L Phosphorus Magnesium Iron TIBC Direct Bilirubin AST 3686 H ALT 1440 H Alkaline Phosphatase 185 H Total Creatine Kinase CK-MB (CK-2) C-Reactive Protein Total Protein 3.7 L Albumin 1.8 L Vitamin B12 Salicylates Acetaminophen Miscellaneous Test Crossmatch 04/01/19 04/01/19 04/01/19 11:35 13:05 14:35 WBC RBC Hgb Hct MCV MCH MCHC RDW Plt Count [place] % (Auto) Lymph # Seg Neuts % (Manual) Lymphocytes % (Manual) Nucleated RBC % Seg Neutrophils # Man Lymphocytes # (Manual) Monocytes # (Manual) PT INR APTT D-Dimer POC ABG pH ABG pH POC ABG pCO2 POC ABG pO2 ABG pO2 ABG HCO3 ABG O2 Saturation ABG Base Excess ABG Hemoglobin VBG pH Oxyhemoglobin Sodium Potassium Chloride Carbon Dioxide BUN Creatinine Glucose POC Glucose 201 H 169 H 134 H Lactic Acid Calcium Phosphorus Magnesium Iron TIBC Direct Bilirubin AST ALT Alkaline Phosphatase Total Creatine Kinase CK-MB (CK-2) C-Reactive Protein Total Protein Albumin Vitamin B12 Salicylates Acetaminophen Miscellaneous Test Crossmatch 04/01/19 04/01/19 04/01/19 17:13 17:14 18:30 WBC RBC Hgb Hct MCV MCH MCHC RDW Plt Count [place] % (Auto) Lymph # Seg Neuts % (Manual) Lymphocytes % (Manual) Nucleated RBC % Seg Neutrophils # Man Lymphocytes # (Manual) Monocytes # (Manual) PT INR APTT D-Dimer 5203.68 H POC ABG pH ABG pH POC ABG pCO2 POC ABG pO2 ABG pO2 ABG HCO3 ABG O2 Saturation ABG Base Excess ABG Hemoglobin VBG pH Oxyhemoglobin Sodium Potassium Chloride Carbon Dioxide BUN Creatinine Glucose POC Glucose 69 L 128 H Lactic Acid Calcium Phosphorus Magnesium Iron TIBC Direct Bilirubin AST ALT Alkaline Phosphatase Total Creatine Kinase CK-MB (CK-2) C-Reactive Protein Total Protein Albumin Vitamin B12 Salicylates Acetaminophen Miscellaneous Test Crossmatch 04/01/19 04/01/19 04/02/19 22:50 Unknown 03:40 WBC RBC Hgb Hct MCV MCH MCHC RDW Plt Count [place] % (Auto) Lymph # Seg Neuts % (Manual) Lymphocytes % (Manual) Nucleated RBC % Seg Neutrophils # Man Lymphocytes # (Manual) Monocytes # (Manual) PT INR APTT D-Dimer POC ABG pH ABG pH POC ABG pCO2 POC ABG pO2 ABG pO2 78.3 L 142.8 H ABG HCO3 15.5 L ABG O2 Saturation ABG Base Excess -3.5 L -8.2 L ABG Hemoglobin 6.8 L 8.2 L VBG pH Oxyhemoglobin 94.3 L Sodium Potassium Chloride Carbon Dioxide BUN Creatinine Glucose POC Glucose 342 H Lactic Acid Calcium Phosphorus Magnesium Iron TIBC Direct Bilirubin AST ALT Alkaline Phosphatase Total Creatine Kinase CK-MB (CK-2) C-Reactive Protein Total Protein Albumin Vitamin B12 Salicylates Acetaminophen Miscellaneous Test Crossmatch 04/02/19 04/02/19 04/02/19 03:49 06:50 07:48 WBC RBC 2.65 L Hgb 8.6 L Hct 25.1 L MCV MCH MCHC RDW 17.6 H Plt Count 48 L [place] % (Auto) Lymph # Seg Neuts % (Manual) Lymphocytes % (Manual) Nucleated RBC % Seg Neutrophils # Man Lymphocytes # (Manual) Monocytes # (Manual) PT INR APTT D-Dimer POC ABG pH ABG pH POC ABG pCO2 POC ABG pO2 ABG pO2 ABG HCO3 ABG O2 Saturation ABG Base Excess ABG Hemoglobin VBG pH Oxyhemoglobin Sodium Potassium Chloride Carbon Dioxide BUN Creatinine Glucose POC Glucose 247 H 200 H Lactic Acid Calcium Phosphorus Magnesium Iron TIBC Direct Bilirubin AST ALT Alkaline Phosphatase Total Creatine Kinase CK-MB (CK-2) C-Reactive Protein Total Protein Albumin Vitamin B12 Salicylates Acetaminophen Miscellaneous Test Crossmatch 04/02/19 04/02/19 04/02/19 07:48 11:18 14:07 WBC RBC Hgb Hct MCV MCH MCHC RDW Plt Count [place] % (Auto) Lymph # Seg Neuts % (Manual) Lymphocytes % (Manual) Nucleated RBC % Seg Neutrophils # Man Lymphocytes # (Manual) Monocytes # (Manual) PT INR APTT D-Dimer POC ABG pH ABG pH POC ABG pCO2 POC ABG pO2 ABG pO2 ABG HCO3 ABG O2 Saturation ABG Base Excess ABG Hemoglobin VBG pH Oxyhemoglobin Sodium Potassium 3.5 L Chloride 115.7 H Carbon Dioxide 19 L BUN 29 H Creatinine 0.5 L Glucose 159 H POC Glucose 154 H 149 H Lactic Acid Calcium 7.5 L Phosphorus Magnesium Iron TIBC Direct Bilirubin AST 1418 H ALT 1134 H Alkaline Phosphatase 242 H Total Creatine Kinase CK-MB (CK-2) C-Reactive Protein Total Protein 4.2 L Albumin 2.1 L Vitamin B12 Salicylates Acetaminophen Miscellaneous Test Crossmatch 04/02/19 04/02/19 04/02/19 18:09 19:46 23:05 WBC RBC Hgb Hct MCV MCH MCHC RDW Plt Count [place] % (Auto) Lymph # Seg Neuts % (Manual) Lymphocytes % (Manual) Nucleated RBC % Seg Neutrophils # Man Lymphocytes # (Manual) Monocytes # (Manual) PT INR APTT D-Dimer POC ABG pH ABG pH POC ABG pCO2 POC ABG pO2 ABG pO2 ABG HCO3 ABG O2 Saturation ABG Base Excess ABG Hemoglobin VBG pH Oxyhemoglobin Sodium Potassium Chloride Carbon Dioxide BUN Creatinine Glucose POC Glucose 188 H 209 H 247 H Lactic Acid Calcium Phosphorus Magnesium Iron TIBC Direct Bilirubin AST ALT Alkaline Phosphatase Total Creatine Kinase CK-MB (CK-2) C-Reactive Protein Total Protein Albumin Vitamin B12 Salicylates Acetaminophen Miscellaneous Test Crossmatch 04/03/19 04/03/19 04/03/19 02:58 03:40 03:40 WBC RBC 2.87 L Hgb 9.3 L Hct 27.0 L MCV MCH MCHC RDW 17.2 H Plt Count 65 L [place] % (Auto) 9.8 H Lymph # 1.1 L Seg Neuts % (Manual) Lymphocytes % (Manual) Nucleated RBC % Seg Neutrophils # Man Lymphocytes # (Manual) Monocytes # (Manual) PT INR APTT D-Dimer POC ABG pH ABG pH POC ABG pCO2 POC ABG pO2 ABG pO2 ABG HCO3 ABG O2 Saturation ABG Base Excess ABG Hemoglobin VBG pH Oxyhemoglobin Sodium 147 H Potassium 3.5 L Chloride 116.7 H Carbon Dioxide 18 L BUN Creatinine 0.4 L Glucose 150 H POC Glucose 166 H Lactic Acid Calcium 8.1 L Phosphorus 2.20 L Magnesium Iron TIBC Direct Bilirubin AST 594 H ALT 861 H Alkaline Phosphatase 299 H Total Creatine Kinase CK-MB (CK-2) C-Reactive Protein Total Protein 4.4 L Albumin 2.1 L Vitamin B12 Salicylates Acetaminophen Miscellaneous Test Crossmatch 04/03/19 04/03/19 04/03/19 05:35 07:02 08:23 WBC RBC Hgb Hct MCV MCH MCHC RDW Plt Count [place] % (Auto) Lymph # Seg Neuts % (Manual) Lymphocytes % (Manual) Nucleated RBC % Seg Neutrophils # Man Lymphocytes # (Manual) Monocytes # (Manual) PT INR APTT D-Dimer POC ABG pH ABG pH POC ABG pCO2 POC ABG pO2 ABG pO2 97.7 H ABG HCO3 19.3 L ABG O2 Saturation ABG Base Excess -5.0 L ABG Hemoglobin 8.0 L VBG pH Oxyhemoglobin Sodium Potassium Chloride Carbon Dioxide BUN Creatinine Glucose POC Glucose 135 H 132 H Lactic Acid Calcium Phosphorus Magnesium Iron TIBC Direct Bilirubin AST ALT Alkaline Phosphatase Total Creatine Kinase CK-MB (CK-2) C-Reactive Protein Total Protein Albumin Vitamin B12 Salicylates Acetaminophen Miscellaneous Test Crossmatch 04/03/19 04/03/19 04/03/19 11:58 15:11 17:53 WBC RBC Hgb Hct MCV MCH MCHC RDW Plt Count [place] % (Auto) Lymph # Seg Neuts % (Manual) Lymphocytes % (Manual) Nucleated RBC % Seg Neutrophils # Man Lymphocytes # (Manual) Monocytes # (Manual) PT INR APTT D-Dimer POC ABG pH ABG pH POC ABG pCO2 POC ABG pO2 ABG pO2 ABG HCO3 ABG O2 Saturation ABG Base Excess ABG Hemoglobin VBG pH Oxyhemoglobin Sodium Potassium Chloride Carbon Dioxide BUN Creatinine Glucose POC Glucose 179 H 213 H 223 H Lactic Acid Calcium Phosphorus Magnesium Iron TIBC Direct Bilirubin AST ALT Alkaline Phosphatase Total Creatine Kinase CK-MB (CK-2) C-Reactive Protein Total Protein Albumin Vitamin B12 Salicylates Acetaminophen Miscellaneous Test Crossmatch 04/03/19 04/04/19 04/04/19 23:06 02:36 06:41 WBC RBC Hgb Hct MCV MCH MCHC RDW Plt Count [place] % (Auto) Lymph # Seg Neuts % (Manual) Lymphocytes % (Manual) Nucleated RBC % Seg Neutrophils # Man Lymphocytes # (Manual) Monocytes # (Manual) PT INR APTT D-Dimer POC ABG pH ABG pH POC ABG pCO2 POC ABG pO2 ABG pO2 ABG HCO3 ABG O2 Saturation ABG Base Excess ABG Hemoglobin VBG pH Oxyhemoglobin Sodium Potassium Chloride Carbon Dioxide BUN Creatinine Glucose POC Glucose 189 H 157 H 131 H Lactic Acid Calcium Phosphorus Magnesium Iron TIBC Direct Bilirubin AST ALT Alkaline Phosphatase Total Creatine Kinase CK-MB (CK-2) C-Reactive Protein Total Protein Albumin Vitamin B12 Salicylates Acetaminophen Miscellaneous Test Crossmatch 04/04/19 04/04/19 04/04/19 11:42 15:45 18:21 WBC RBC Hgb Hct MCV MCH MCHC RDW Plt Count [place] % (Auto) Lymph # Seg Neuts % (Manual) Lymphocytes % (Manual) Nucleated RBC % Seg Neutrophils # Man Lymphocytes # (Manual) Monocytes # (Manual) PT INR APTT D-Dimer POC ABG pH ABG pH POC ABG pCO2 POC ABG pO2 ABG pO2 ABG HCO3 ABG O2 Saturation ABG Base Excess ABG Hemoglobin VBG pH Oxyhemoglobin Sodium Potassium Chloride Carbon Dioxide BUN Creatinine Glucose POC Glucose 233 H 236 H 255 H Lactic Acid Calcium Phosphorus Magnesium Iron TIBC Direct Bilirubin AST ALT Alkaline Phosphatase Total Creatine Kinase CK-MB (CK-2) C-Reactive Protein Total Protein Albumin Vitamin B12 Salicylates Acetaminophen Miscellaneous Test Crossmatch 04/04/19 04/05/19 04/05/19 21:21 03:06 06:05 WBC RBC 2.68 L Hgb 8.5 L Hct 26.3 L MCV 98 H MCH MCHC RDW 17.4 H Plt Count [place] % (Auto) Lymph # Seg Neuts % (Manual) Lymphocytes % (Manual) Nucleated RBC % Seg Neutrophils # Man Lymphocytes # (Manual) Monocytes # (Manual) PT INR APTT D-Dimer POC ABG pH ABG pH POC ABG pCO2 POC ABG pO2 ABG pO2 ABG HCO3 ABG O2 Saturation ABG Base Excess ABG Hemoglobin VBG pH Oxyhemoglobin Sodium Potassium Chloride Carbon Dioxide BUN Creatinine Glucose POC Glucose 132 H 161 H Lactic Acid Calcium Phosphorus Magnesium Iron TIBC Direct Bilirubin AST ALT Alkaline Phosphatase Total Creatine Kinase CK-MB (CK-2) C-Reactive Protein Total Protein Albumin Vitamin B12 Salicylates Acetaminophen Miscellaneous Test Crossmatch 04/05/19 04/05/19 04/05/19 06:05 06:49 10:23 WBC RBC Hgb Hct MCV MCH MCHC RDW Plt Count [place] % (Auto) Lymph # Seg Neuts % (Manual) Lymphocytes % (Manual) Nucleated RBC % Seg Neutrophils # Man Lymphocytes # (Manual) Monocytes # (Manual) PT INR APTT D-Dimer POC ABG pH ABG pH POC ABG pCO2 POC ABG pO2 ABG pO2 ABG HCO3 ABG O2 Saturation ABG Base Excess ABG Hemoglobin VBG pH Oxyhemoglobin Sodium Potassium Chloride 112.5 H Carbon Dioxide BUN Creatinine 0.2 L Glucose 237 H POC Glucose 283 H 296 H Lactic Acid Calcium 7.9 L Phosphorus Magnesium Iron TIBC Direct Bilirubin AST ALT Alkaline Phosphatase Total Creatine Kinase CK-MB (CK-2) C-Reactive Protein Total Protein Albumin Vitamin B12 Salicylates Acetaminophen Miscellaneous Test Crossmatch 04/05/19 04/05/19 04/05/19 14:46 18:19 20:35 WBC RBC Hgb Hct MCV MCH MCHC RDW Plt Count [place] % (Auto) Lymph # Seg Neuts % (Manual) Lymphocytes % (Manual) Nucleated RBC % Seg Neutrophils # Man Lymphocytes # (Manual) Monocytes # (Manual) PT INR APTT D-Dimer POC ABG pH ABG pH POC ABG pCO2 POC ABG pO2 ABG pO2 ABG HCO3 ABG O2 Saturation ABG Base Excess ABG Hemoglobin VBG pH Oxyhemoglobin Sodium Potassium Chloride Carbon Dioxide BUN Creatinine Glucose POC Glucose 225 H 259 H 236 H Lactic Acid Calcium Phosphorus Magnesium Iron TIBC Direct Bilirubin AST ALT Alkaline Phosphatase Total Creatine Kinase CK-MB (CK-2) C-Reactive Protein Total Protein Albumin Vitamin B12 Salicylates Acetaminophen Miscellaneous Test Crossmatch 04/05/19 04/06/19 04/06/19 23:11 00:06 03:14 WBC RBC Hgb Hct MCV MCH MCHC RDW Plt Count [place] % (Auto) Lymph # Seg Neuts % (Manual) Lymphocytes % (Manual) Nucleated RBC % Seg Neutrophils # Man Lymphocytes # (Manual) Monocytes # (Manual) PT INR APTT D-Dimer 4526.86 H POC ABG pH ABG pH POC ABG pCO2 POC ABG pO2 ABG pO2 ABG HCO3 ABG O2 Saturation ABG Base Excess ABG Hemoglobin VBG pH Oxyhemoglobin Sodium Potassium Chloride Carbon Dioxide BUN Creatinine Glucose POC Glucose 205 H 228 H Lactic Acid Calcium Phosphorus Magnesium Iron TIBC Direct Bilirubin AST ALT Alkaline Phosphatase Total Creatine Kinase CK-MB (CK-2) C-Reactive Protein Total Protein Albumin Vitamin B12 Salicylates Acetaminophen Miscellaneous Test Crossmatch 04/06/19 04/06/1904/06/19 05:20 05:20 07:57 WBC 15.1 H RBC 2.90 L Hgb 9.1 L Hct 28.0 L MCV MCH MCHC RDW 17.3 H Plt Count [place] % (Auto) Lymph # Seg Neuts % (Manual) Lymphocytes % (Manual) Nucleated RBC % Seg Neutrophils # Man Lymphocytes # (Manual) Monocytes # (Manual) PT INR APTT D-Dimer POC ABG pH ABG pH POC ABG pCO2 POC ABG pO2 ABG pO2 ABG HCO3 ABG O2 Saturation ABG Base Excess ABG Hemoglobin VBG pH Oxyhemoglobin Sodium Potassium Chloride Carbon Dioxide BUN Creatinine 0.2 L Glucose 161 H POC Glucose 191 H Lactic Acid Calcium 8.0 L Phosphorus Magnesium Iron TIBC Direct Bilirubin AST ALT Alkaline Phosphatase Total Creatine Kinase CK-MB (CK-2) C-Reactive Protein Total Protein Albumin Vitamin B12 Salicylates Acetaminophen Miscellaneous Test Crossmatch 04/06/19 04/06/19 04/06/19 12:09 18:24 22:07 WBC RBC Hgb Hct MCV MCH MCHC RDW Plt Count [place] % (Auto) Lymph # Seg Neuts % (Manual) Lymphocytes % (Manual) Nucleated RBC % Seg Neutrophils # Man Lymphocytes # (Manual) Monocytes # (Manual) PT INR APTT D-Dimer POC ABG pH ABG pH POC ABG pCO2 POC ABG pO2 ABG pO2 ABG HCO3 ABG O2 Saturation ABG Base Excess ABG Hemoglobin VBG pH Oxyhemoglobin Sodium Potassium Chloride Carbon Dioxide BUN Creatinine Glucose POC Glucose 143 H 161 H 140 H Lactic Acid Calcium Phosphorus Magnesium Iron TIBC Direct Bilirubin AST ALT Alkaline Phosphatase Total Creatine Kinase CK-MB (CK-2) C-Reactive Protein Total Protein Albumin Vitamin B12 Salicylates Acetaminophen Miscellaneous Test Crossmatch 04/07/19 04/07/19 04/07/19 03:00 04:30 04:30 WBC 13.0 H RBC 2.65 L Hgb 8.3 L Hct 25.5 L MCV MCH MCHC RDW 17.0 H Plt Count [place] % (Auto) Lymph # Seg Neuts % (Manual) Lymphocytes % (Manual) Nucleated RBC % Seg Neutrophils # Man Lymphocytes # (Manual) Monocytes # (Manual) PT INR APTT D-Dimer POC ABG pH ABG pH POC ABG pCO2 POC ABG pO2 ABG pO2 ABG HCO3 ABG O2 Saturation ABG Base Excess ABG Hemoglobin VBG pH Oxyhemoglobin Sodium Potassium Chloride Carbon Dioxide BUN Creatinine 0.2 L Glucose 208 H POC Glucose 224 H Lactic Acid Calcium 7.7 L Phosphorus Magnesium Iron TIBC Direct Bilirubin AST ALT Alkaline Phosphatase Total Creatine Kinase CK-MB (CK-2) C-Reactive Protein Total Protein Albumin Vitamin B12 Salicylates Acetaminophen Miscellaneous Test Crossmatch 04/07/19 04/07/19 04/07/19 05:47 08:27 10:33 WBC RBC Hgb Hct MCV MCH MCHC RDW Plt Count [place] % (Auto) Lymph # Seg Neuts % (Manual) Lymphocytes % (Manual) Nucleated RBC % Seg Neutrophils # Man Lymphocytes # (Manual) Monocytes # (Manual) PT INR APTT D-Dimer POC ABG pH ABG pH POC ABG pCO2 POC ABG pO2 ABG pO2 ABG HCO3 ABG O2 Saturation ABG Base Excess ABG Hemoglobin VBG pH Oxyhemoglobin Sodium Potassium Chloride Carbon Dioxide BUN Creatinine Glucose POC Glucose 225 H 176 H 207 H Lactic Acid Calcium Phosphorus Magnesium Iron TIBC Direct Bilirubin AST ALT Alkaline Phosphatase Total Creatine Kinase CK-MB (CK-2) C-Reactive Protein Total Protein Albumin Vitamin B12 Salicylates Acetaminophen Miscellaneous Test Crossmatch 04/07/19 04/07/19 04/07/19 14:13 18:32 22:42 WBC RBC Hgb Hct MCV MCH MCHC RDW Plt Count [place] % (Auto) Lymph # Seg Neuts % (Manual) Lymphocytes % (Manual) Nucleated RBC % Seg Neutrophils # Man Lymphocytes # (Manual) Monocytes # (Manual) PT INR APTT D-Dimer POC ABG pH ABG pH POC ABG pCO2 POC ABG pO2 ABG pO2 ABG HCO3 ABG O2 Saturation ABG Base Excess ABG Hemoglobin VBG pH Oxyhemoglobin Sodium Potassium Chloride Carbon Dioxide BUN Creatinine Glucose POC Glucose 219 H 227 H 238 H Lactic Acid Calcium Phosphorus Magnesium Iron TIBC Direct Bilirubin AST ALT Alkaline Phosphatase Total Creatine Kinase CK-MB (CK-2) C-Reactive Protein Total Protein Albumin Vitamin B12 Salicylates Acetaminophen Miscellaneous Test Crossmatch 04/08/19 04/08/19 04/08/19 02:31 05:37 14:10 WBC RBC Hgb Hct MCV MCH MCHC RDW Plt Count [place] % (Auto) Lymph # Seg Neuts % (Manual) Lymphocytes % (Manual) Nucleated RBC % Seg Neutrophils # Man Lymphocytes # (Manual) Monocytes # (Manual) PT INR APTT D-Dimer POC ABG pH ABG pH POC ABG pCO2 POC ABG pO2 ABG pO2 ABG HCO3 ABG O2 Saturation ABG Base Excess ABG Hemoglobin VBG pH Oxyhemoglobin Sodium Potassium Chloride Carbon Dioxide BUN Creatinine Glucose POC Glucose 194 H 194 H 139 H Lactic Acid Calcium Phosphorus Magnesium Iron TIBC Direct Bilirubin AST ALT Alkaline Phosphatase Total Creatine Kinase CK-MB (CK-2) C-Reactive Protein Total Protein Albumin Vitamin B12 Salicylates Acetaminophen Miscellaneous Test Crossmatch 04/08/19 04/08/19 04/09/19 17:43 23:20 03:28 WBC RBC Hgb Hct MCV MCH MCHC RDW Plt Count [place] % (Auto) Lymph # Seg Neuts % (Manual) Lymphocytes % (Manual) Nucleated RBC % Seg Neutrophils # Man Lymphocytes # (Manual) Monocytes # (Manual) PT INR APTT D-Dimer POC ABG pH ABG pH POC ABG pCO2 POC ABG pO2 ABG pO2 ABG HCO3 ABG O2 Saturation ABG Base Excess ABG Hemoglobin VBG pH Oxyhemoglobin Sodium Potassium Chloride Carbon Dioxide BUN Creatinine Glucose POC Glucose 261 H 277 H 301 H Lactic Acid Calcium Phosphorus Magnesium Iron TIBC Direct Bilirubin AST ALT Alkaline Phosphatase Total Creatine Kinase CK-MB (CK-2) C-Reactive Protein Total Protein Albumin Vitamin B12 Salicylates Acetaminophen Miscellaneous Test Crossmatch 04/09/19 04/09/19 04/09/19 05:35 05:35 05:35 WBC RBC 2.78 L Hgb 9.0 L Hct 26.7 L MCV MCH MCHC RDW 17.0 H Plt Count [place] % (Auto) Lymph # Seg Neuts % (Manual) Lymphocytes % (Manual) Nucleated RBC % Seg Neutrophils # Man Lymphocytes # (Manual) Monocytes # (Manual) PT INR APTT D-Dimer POC ABG pH ABG pH POC ABG pCO2 POC ABG pO2 ABG pO2 ABG HCO3 ABG O2 Saturation ABG Base Excess ABG Hemoglobin VBG pH Oxyhemoglobin Sodium Potassium Chloride Carbon Dioxide 31 H BUN Creatinine 0.2 L Glucose 218 H POC Glucose 240 H Lactic Acid Calcium Phosphorus Magnesium Iron TIBC Direct Bilirubin AST ALT Alkaline Phosphatase Total Creatine Kinase CK-MB (CK-2) C-Reactive Protein Total Protein Albumin Vitamin B12 Salicylates Acetaminophen Miscellaneous Test Crossmatch 04/09/19 04/09/19 04/09/19 09:01 12:23 17:33 WBC RBC Hgb Hct MCV MCH MCHC RDW Plt Count [place] % (Auto) Lymph # Seg Neuts % (Manual) Lymphocytes % (Manual) Nucleated RBC % Seg Neutrophils # Man Lymphocytes # (Manual) Monocytes # (Manual) PT INR APTT D-Dimer POC ABG pH ABG pH POC ABG pCO2 POC ABG pO2 ABG pO2 ABG HCO3 ABG O2 Saturation ABG Base Excess ABG Hemoglobin VBG pH Oxyhemoglobin Sodium Potassium Chloride Carbon Dioxide BUN Creatinine Glucose POC Glucose 160 H 162 H 149 H Lactic Acid Calcium Phosphorus Magnesium Iron TIBC Direct Bilirubin AST ALT Alkaline Phosphatase Total Creatine Kinase CK-MB (CK-2) C-Reactive Protein Total Protein Albumin Vitamin B12 Salicylates Acetaminophen Miscellaneous Test Crossmatch 04/09/19 04/09/19 04/10/19 21:26 22:28 03:16 WBC RBC Hgb Hct MCV MCH MCHC RDW Plt Count [place] % (Auto) Lymph # Seg Neuts % (Manual) Lymphocytes % (Manual) Nucleated RBC % Seg Neutrophils # Man Lymphocytes # (Manual) Monocytes # (Manual) PT INR APTT D-Dimer POC ABG pH ABG pH POC ABG pCO2 POC ABG pO2 ABG pO2 ABG HCO3 ABG O2 Saturation ABG Base Excess ABG Hemoglobin VBG pH Oxyhemoglobin Sodium Potassium Chloride Carbon Dioxide BUN Creatinine Glucose POC Glucose 196 H 224 H 163 H Lactic Acid Calcium Phosphorus Magnesium Iron TIBC Direct Bilirubin AST ALT Alkaline Phosphatase Total Creatine Kinase CK-MB (CK-2) C-Reactive Protein Total Protein Albumin Vitamin B12 Salicylates Acetaminophen Miscellaneous Test Crossmatch 04/10/19 04/10/19 04/10/19 04:15 04:15 05:30 WBC RBC 2.88 L Hgb 9.2 L Hct 27.9 L MCV MCH MCHC RDW 17.0 H Plt Count 454 H [place] % (Auto) Lymph # Seg Neuts % (Manual) Lymphocytes % (Manual) Nucleated RBC % Seg Neutrophils # Man Lymphocytes # (Manual) Monocytes # (Manual) PT INR APTT D-Dimer POC ABG pH ABG pH POC ABG pCO2 POC ABG pO2 ABG pO2 ABG HCO3 ABG O2 Saturation ABG Base Excess ABG Hemoglobin VBG pH Oxyhemoglobin Sodium Potassium Chloride Carbon Dioxide 32 H BUN Creatinine 0.2 L Glucose 126 H POC Glucose 135 H Lactic Acid Calcium Phosphorus Magnesium Iron TIBC Direct Bilirubin AST ALT Alkaline Phosphatase Total Creatine Kinase CK-MB (CK-2) C-Reactive Protein Total Protein Albumin Vitamin B12 Salicylates Acetaminophen Miscellaneous Test Crossmatch 04/10/19 04/10/19 04/10/19 12:14 15:29 23:38 WBC RBC Hgb Hct MCV MCH MCHC RDW Plt Count [place] % (Auto) Lymph # Seg Neuts % (Manual) Lymphocytes % (Manual) Nucleated RBC % Seg Neutrophils # Man Lymphocytes # (Manual) Monocytes # (Manual) PT INR APTT D-Dimer POC ABG pH ABG pH POC ABG pCO2 POC ABG pO2 ABG pO2 ABG HCO3 ABG O2 Saturation ABG Base Excess ABG Hemoglobin VBG pH Oxyhemoglobin Sodium Potassium Chloride Carbon Dioxide BUN Creatinine Glucose POC Glucose 109 H 149 H 268 H Lactic Acid Calcium Phosphorus Magnesium Iron TIBC Direct Bilirubin AST ALT Alkaline Phosphatase Total Creatine Kinase CK-MB (CK-2) C-Reactive Protein Total Protein Albumin Vitamin B12 Salicylates Acetaminophen Miscellaneous Test Crossmatch 04/11/19 04/11/19 04/11/19 05:27 12:08 18:08 WBC RBC Hgb Hct MCV MCH MCHC RDW Plt Count [place] % (Auto) Lymph # Seg Neuts % (Manual) Lymphocytes % (Manual) Nucleated RBC % Seg Neutrophils # Man Lymphocytes # (Manual) Monocytes # (Manual) PT INR APTT D-Dimer POC ABG pH ABG pH POC ABG pCO2 POC ABG pO2 ABG pO2 ABG HCO3 ABG O2 Saturation ABG Base Excess ABG Hemoglobin VBG pH Oxyhemoglobin Sodium Potassium Chloride Carbon Dioxide BUN Creatinine Glucose POC Glucose 109 H 185 H 190 H Lactic Acid Calcium Phosphorus Magnesium Iron TIBC Direct Bilirubin AST ALT Alkaline Phosphatase Total Creatine Kinase CK-MB (CK-2) C-Reactive Protein Total Protein Albumin Vitamin B12 Salicylates Acetaminophen Miscellaneous Test Crossmatch 04/11/19 04/12/19 04/12/19 23:23 06:00 11:42 WBC RBC Hgb Hct MCV MCH MCHC RDW Plt Count [place] % (Auto) Lymph # Seg Neuts % (Manual) Lymphocytes % (Manual) Nucleated RBC % Seg Neutrophils # Man Lymphocytes # (Manual) Monocytes # (Manual) PT INR APTT D-Dimer POC ABG pH ABG pH POC ABG pCO2 POC ABG pO2 ABG pO2 ABG HCO3 ABG O2 Saturation ABG Base Excess ABG Hemoglobin VBG pH Oxyhemoglobin Sodium Potassium Chloride Carbon Dioxide BUN Creatinine Glucose POC Glucose 127 H 201 H 161 H Lactic Acid Calcium Phosphorus Magnesium Iron TIBC Direct Bilirubin AST ALT Alkaline Phosphatase Total Creatine Kinase CK-MB (CK-2) C-Reactive Protein Total Protein Albumin Vitamin B12 Salicylates Acetaminophen Miscellaneous Test Crossmatch 04/12/19 04/12/19 04/12/19 17:56 20:07 21:59 WBC RBC Hgb Hct MCV MCH MCHC RDW Plt Count [place] % (Auto) Lymph # Seg Neuts % (Manual) Lymphocytes % (Manual) Nucleated RBC % Seg Neutrophils # Man Lymphocytes # (Manual) Monocytes # (Manual) PT INR APTT D-Dimer POC ABG pH ABG pH POC ABG pCO2 POC ABG pO2 ABG pO2 ABG HCO3 ABG O2 Saturation ABG Base Excess ABG Hemoglobin VBG pH Oxyhemoglobin Sodium Potassium Chloride Carbon Dioxide BUN Creatinine Glucose POC Glucose 145 H 158 H 203 H Lactic Acid Calcium Phosphorus Magnesium Iron TIBC Direct Bilirubin AST ALT Alkaline Phosphatase Total Creatine Kinase CK-MB (CK-2) C-Reactive Protein Total Protein Albumin Vitamin B12 Salicylates Acetaminophen Miscellaneous Test Crossmatch 04/12/19 04/13/19 04/13/19 23:37 08:50 08:50 WBC 15.7 H RBC 3.12 L Hgb Hct 30.2 L MCV MCH 33 H MCHC RDW 18.0 H Plt Count 678 H [place] % (Auto) Lymph # Seg Neuts % (Manual) Lymphocytes % (Manual) Nucleated RBC % Seg Neutrophils # Man Lymphocytes # (Manual) Monocytes # (Manual) PT INR APTT D-Dimer POC ABG pH ABG pH POC ABG pCO2 POC ABG pO2 ABG pO2 ABG HCO3 ABG O2 Saturation ABG Base Excess ABG Hemoglobin VBG pH Oxyhemoglobin Sodium Potassium Chloride Carbon Dioxide BUN Creatinine < 0.2 L Glucose 46 L POC Glucose 238 H Lactic Acid Calcium Phosphorus Magnesium Iron TIBC Direct Bilirubin AST ALT Alkaline Phosphatase Total Creatine Kinase CK-MB (CK-2) C-Reactive Protein Total Protein Albumin Vitamin B12 Salicylates Acetaminophen Miscellaneous Test Crossmatch 04/13/19 04/13/19 04/13/19 11:56 17:27 23:57 WBC RBC Hgb Hct MCV MCH MCHC RDW Plt Count [place] % (Auto) Lymph # Seg Neuts % (Manual) Lymphocytes % (Manual) Nucleated RBC % Seg Neutrophils # Man Lymphocytes # (Manual) Monocytes # (Manual) PT INR APTT D-Dimer POC ABG pH ABG pH POC ABG pCO2 POC ABG pO2 ABG pO2 ABG HCO3 ABG O2 Saturation ABG Base Excess ABG Hemoglobin VBG pH Oxyhemoglobin Sodium Potassium Chloride Carbon Dioxide BUN Creatinine Glucose POC Glucose 40 L 66 L 65 L Lactic Acid Calcium Phosphorus Magnesium Iron TIBC Direct Bilirubin AST ALT Alkaline Phosphatase Total Creatine Kinase CK-MB (CK-2) C-Reactive Protein Total Protein Albumin Vitamin B12 Salicylates Acetaminophen Miscellaneous Test Crossmatch 04/14/19 04/14/19 04/14/19 05:28 08:20 08:20 WBC 17.8 H RBC 3.26 L Hgb Hct MCV 98 H MCH MCHC RDW 18.3 H Plt Count 622 H [place] % (Auto) Lymph # Seg Neuts % (Manual) Lymphocytes % (Manual) Nucleated RBC % Seg Neutrophils # Man Lymphocytes # (Manual) Monocytes # (Manual) PT INR APTT D-Dimer POC ABG pH ABG pH POC ABG pCO2 POC ABG pO2 ABG pO2 ABG HCO3 ABG O2 Saturation ABG Base Excess ABG Hemoglobin VBG pH Oxyhemoglobin Sodium Potassium Chloride Carbon Dioxide BUN 6 L Creatinine < 0.2 L Glucose 154 H POC Glucose 149 H Lactic Acid Calcium Phosphorus Magnesium Iron TIBC Direct Bilirubin AST ALT Alkaline Phosphatase Total Creatine Kinase CK-MB (CK-2) C-Reactive Protein Total Protein Albumin Vitamin B12 Salicylates Acetaminophen Miscellaneous Test Crossmatch 04/14/19 04/14/19 04/14/19 12:16 17:54 23:35 WBC RBC Hgb Hct MCV MCH MCHC RDW Plt Count [place] % (Auto) Lymph # Seg Neuts % (Manual) Lymphocytes % (Manual) Nucleated RBC % Seg Neutrophils # Man Lymphocytes # (Manual) Monocytes # (Manual) PT INR APTT D-Dimer POC ABG pH ABG pH POC ABG pCO2 POC ABG pO2 ABG pO2 ABG HCO3 ABG O2 Saturation ABG Base Excess ABG Hemoglobin VBG pH Oxyhemoglobin Sodium Potassium Chloride Carbon Dioxide BUN Creatinine Glucose POC Glucose 176 H 224 H 173 H Lactic Acid Calcium Phosphorus Magnesium Iron TIBC Direct Bilirubin AST ALT Alkaline Phosphatase Total Creatine Kinase CK-MB (CK-2) C-Reactive Protein Total Protein Albumin Vitamin B12 Salicylates Acetaminophen Miscellaneous Test Crossmatch 04/15/19 04/15/19 04/15/19 05:44 12:44 18:06 WBC RBC Hgb Hct MCV MCH MCHC RDW Plt Count [place] % (Auto) Lymph # Seg Neuts % (Manual) Lymphocytes % (Manual) Nucleated RBC % Seg Neutrophils # Man Lymphocytes # (Manual) Monocytes # (Manual) PT INR APTT D-Dimer POC ABG pH 7.461 H ABG pH POC ABG pCO2 45.5 H POC ABG pO2 ABG pO2 ABG HCO3 ABG O2 Saturation ABG Base Excess ABG Hemoglobin VBG pH Oxyhemoglobin Sodium Potassium Chloride Carbon Dioxide BUN Creatinine Glucose POC Glucose 255 H 365 H Lactic Acid Calcium Phosphorus Magnesium Iron TIBC Direct Bilirubin AST ALT Alkaline Phosphatase Total Creatine Kinase CK-MB (CK-2) C-Reactive Protein Total Protein Albumin Vitamin B12 Salicylates Acetaminophen Miscellaneous Test Crossmatch 04/15/19 04/15/19 04/16/19 18:06 23:34 00:40 WBC RBC Hgb Hct MCV MCH MCHC RDW Plt Count [place] % (Auto) Lymph # Seg Neuts % (Manual) Lymphocytes % (Manual) Nucleated RBC % Seg Neutrophils # Man Lymphocytes # (Manual) Monocytes # (Manual) PT INR APTT D-Dimer POC ABG pH ABG pH POC ABG pCO2 POC ABG pO2 ABG pO2 ABG HCO3 ABG O2 Saturation ABG Base Excess ABG Hemoglobin VBG pH Oxyhemoglobin Sodium Potassium Chloride Carbon Dioxide BUN Creatinine Glucose POC Glucose 157 H 56 L 107 H Lactic Acid Calcium Phosphorus Magnesium Iron TIBC Direct Bilirubin AST ALT Alkaline Phosphatase Total Creatine Kinase CK-MB (CK-2) C-Reactive Protein Total Protein Albumin Vitamin B12 Salicylates Acetaminophen Miscellaneous Test Crossmatch 04/16/19 04/16/19 04/16/19 09:06 09:06 11:21 WBC 12.9 H RBC 2.95 L Hgb 9.7 L Hct 28.9 L MCV 98 H MCH 33 H MCHC RDW 17.7 H Plt Count 581 H [place] % (Auto) Lymph # Seg Neuts % (Manual) Lymphocytes % (Manual) Nucleated RBC % Seg Neutrophils # Man Lymphocytes # (Manual) Monocytes # (Manual) PT INR APTT D-Dimer POC ABG pH ABG pH POC ABG pCO2 POC ABG pO2 ABG pO2 ABG HCO3 ABG O2 Saturation ABG Base Excess ABG Hemoglobin VBG pH Oxyhemoglobin Sodium Potassium Chloride Carbon Dioxide 31 H BUN Creatinine 0.2 L Glucose 155 H POC Glucose 184 H Lactic Acid Calcium Phosphorus Magnesium Iron TIBC Direct Bilirubin AST ALT Alkaline Phosphatase Total Creatine Kinase CK-MB (CK-2) C-Reactive Protein Total Protein Albumin Vitamin B12 Salicylates Acetaminophen Miscellaneous Test Crossmatch 04/16/19 04/16/19 04/16/19 17:28 20:17 23:09 WBC RBC Hgb Hct MCV MCH MCHC RDW Plt Count [place] % (Auto) Lymph # Seg Neuts % (Manual) Lymphocytes % (Manual) Nucleated RBC % Seg Neutrophils # Man Lymphocytes # (Manual) Monocytes # (Manual) PT INR APTT D-Dimer POC ABG pH 7.479 H ABG pH POC ABG pCO2 POC ABG pO2 71 L ABG pO2 ABG HCO3 ABG O2 Saturation ABG Base Excess ABG Hemoglobin VBG pH Oxyhemoglobin Sodium Potassium Chloride Carbon Dioxide BUN Creatinine Glucose POC Glucose 173 H 178 H Lactic Acid Calcium Phosphorus Magnesium Iron TIBC Direct Bilirubin AST ALT Alkaline Phosphatase Total Creatine Kinase CK-MB (CK-2) C-Reactive Protein Total Protein Albumin Vitamin B12 Salicylates Acetaminophen Miscellaneous Test Crossmatch 04/17/19 04/17/19 04/17/19 05:02 11:39 12:48 WBC RBC Hgb Hct MCV MCH MCHC RDW Plt Count [place] % (Auto) Lymph # Seg Neuts % (Manual) Lymphocytes % (Manual) Nucleated RBC % Seg Neutrophils # Man Lymphocytes # (Manual) Monocytes # (Manual) PT INR APTT D-Dimer POC ABG pH 7.557 H ABG pH POC ABG pCO2 32.8 L POC ABG pO2 149 H ABG pO2 ABG HCO3 ABG O2 Saturation ABG Base Excess ABG Hemoglobin VBG pH Oxyhemoglobin Sodium Potassium Chloride Carbon Dioxide BUN Creatinine Glucose POC Glucose 252 H 124 H Lactic Acid Calcium Phosphorus Magnesium Iron TIBC Direct Bilirubin AST ALT Alkaline Phosphatase Total Creatine Kinase CK-MB (CK-2) C-Reactive Protein Total Protein Albumin Vitamin B12 Salicylates Acetaminophen Miscellaneous Test Crossmatch 04/17/19 04/18/19 04/18/19 23:31 05:32 11:34 WBC RBC Hgb Hct MCV MCH MCHC RDW Plt Count [place] % (Auto) Lymph # Seg Neuts % (Manual) Lymphocytes % (Manual) Nucleated RBC % Seg Neutrophils # Man Lymphocytes # (Manual) Monocytes # (Manual) PT INR APTT D-Dimer POC ABG pH ABG pH POC ABG pCO2 POC ABG pO2 ABG pO2 ABG HCO3 ABG O2 Saturation ABG Base Excess ABG Hemoglobin VBG pH Oxyhemoglobin Sodium Potassium Chloride Carbon Dioxide BUN Creatinine Glucose POC Glucose 149 H 334 H 344 H Lactic Acid Calcium Phosphorus Magnesium Iron TIBC Direct Bilirubin AST ALT Alkaline Phosphatase Total Creatine Kinase CK-MB (CK-2) C-Reactive Protein Total Protein Albumin Vitamin B12 Salicylates Acetaminophen Miscellaneous Test Crossmatch 04/18/19 04/18/19 04/18/19 17:43 18:14 23:35 WBC RBC Hgb Hct MCV MCH MCHC RDW Plt Count [place] % (Auto) Lymph # Seg Neuts % (Manual) Lymphocytes % (Manual) Nucleated RBC % Seg Neutrophils # Man Lymphocytes # (Manual) Monocytes # (Manual) PT INR APTT D-Dimer POC ABG pH ABG pH POC ABG pCO2 49.2 H POC ABG pO2 ABG pO2 ABG HCO3 ABG O2 Saturation ABG Base Excess ABG Hemoglobin VBG pH Oxyhemoglobin Sodium Potassium Chloride Carbon Dioxide BUN Creatinine Glucose POC Glucose 289 H 312 H Lactic Acid Calcium Phosphorus Magnesium Iron TIBC Direct Bilirubin AST ALT Alkaline Phosphatase Total Creatine Kinase CK-MB (CK-2) C-Reactive Protein Total Protein Albumin Vitamin B12 Salicylates Acetaminophen Miscellaneous Test Crossmatch 04/19/19 04/19/19 04/19/19 04:35 05:55 12:26 WBC RBC Hgb Hct MCV MCH MCHC RDW Plt Count [place] % (Auto) Lymph # Seg Neuts % (Manual) Lymphocytes % (Manual) Nucleated RBC % Seg Neutrophils # Man Lymphocytes # (Manual) Monocytes # (Manual) PT INR APTT D-Dimer POC ABG pH 7.565 H ABG pH POC ABG pCO2 POC ABG pO2 ABG pO2 ABG HCO3 ABG O2 Saturation ABG Base Excess ABG Hemoglobin VBG pH Oxyhemoglobin Sodium Potassium Chloride Carbon Dioxide BUN Creatinine Glucose POC Glucose 172 H 271 H Lactic Acid Calcium Phosphorus Magnesium Iron TIBC Direct Bilirubin AST ALT Alkaline Phosphatase Total Creatine Kinase CK-MB (CK-2) C-Reactive Protein Total Protein Albumin Vitamin B12 Salicylates Acetaminophen Miscellaneous Test Crossmatch 04/19/19 04/19/19 04/19/19 17:54 21:10 23:35 WBC RBC Hgb Hct MCV MCH MCHC RDW Plt Count [place] % (Auto) Lymph # Seg Neuts % (Manual) Lymphocytes % (Manual) Nucleated RBC % Seg Neutrophils # Man Lymphocytes # (Manual) Monocytes # (Manual) PT INR APTT D-Dimer POC ABG pH ABG pH POC ABG pCO2 POC ABG pO2 ABG pO2 ABG HCO3 ABG O2 Saturation ABG Base Excess ABG Hemoglobin VBG pH Oxyhemoglobin Sodium Potassium Chloride Carbon Dioxide BUN Creatinine Glucose POC Glucose 229 H 189 H 131 H Lactic Acid Calcium Phosphorus Magnesium Iron TIBC Direct Bilirubin AST ALT Alkaline Phosphatase Total Creatine Kinase CK-MB (CK-2) C-Reactive Protein Total Protein Albumin Vitamin B12 Salicylates Acetaminophen Miscellaneous Test Crossmatch 04/20/19 04/20/19 04/20/19 05:42 11:58 17:32 WBC RBC Hgb Hct MCV MCH MCHC RDW Plt Count [place] % (Auto) Lymph # Seg Neuts % (Manual) Lymphocytes % (Manual) Nucleated RBC % Seg Neutrophils # Man Lymphocytes # (Manual) Monocytes # (Manual) PT INR APTT D-Dimer POC ABG pH ABG pH POC ABG pCO2 POC ABG pO2 ABG pO2 ABG HCO3 ABG O2 Saturation ABG Base Excess ABG Hemoglobin VBG pH Oxyhemoglobin Sodium Potassium Chloride Carbon Dioxide BUN Creatinine Glucose POC Glucose 289 H 265 H 232 H Lactic Acid Calcium Phosphorus Magnesium Iron TIBC Direct Bilirubin AST ALT Alkaline Phosphatase Total Creatine Kinase CK-MB (CK-2) C-Reactive Protein Total Protein Albumin Vitamin B12 Salicylates Acetaminophen Miscellaneous Test Crossmatch 04/21/19 04/21/19 04/21/19 00:02 05:13 12:41 WBC RBC Hgb Hct MCV MCH MCHC RDW Plt Count [place] % (Auto) Lymph # Seg Neuts % (Manual) Lymphocytes % (Manual) Nucleated RBC % Seg Neutrophils # Man Lymphocytes # (Manual) Monocytes # (Manual) PT INR APTT D-Dimer POC ABG pH ABG pH POC ABG pCO2 POC ABG pO2 ABG pO2 ABG HCO3 ABG O2 Saturation ABG Base Excess ABG Hemoglobin VBG pH Oxyhemoglobin Sodium Potassium Chloride Carbon Dioxide BUN Creatinine Glucose POC Glucose 126 H 233 H 205 H Lactic Acid Calcium Phosphorus Magnesium Iron TIBC Direct Bilirubin AST ALT Alkaline Phosphatase Total Creatine Kinase CK-MB (CK-2) C-Reactive Protein Total Protein Albumin Vitamin B12 Salicylates Acetaminophen Miscellaneous Test Crossmatch Allied health notes reviewed: nursing
[2019-04-21] MEDS: TYLENOL PO PRN (21:02)
[2019-04-21] MEDS: LANTUS SUB-Q SCH (23:00)
[2019-04-22] MEDS: HumaLOG SUB-Q SCH ×4 (00:19→18:27)
[2019-04-22 04:18] LABS: Hematocrit 32.9 % (30.3-42.9); Hemoglobin 10.6 gm/dl (10.1-14.3); Mean Corpuscular HGB Conc 32 % (30-34); Mean Corpuscular Volume 96 fl (79-97); Platelet Count 510 K/mm3 (140-440); Red Blood Count 3.44 M/mm3 (3.65-5.03); Red Cell Distribution Width 16.3 % (13.2-15.2)
[2019-04-22 04:44] LABS: Alanine Aminotransferase 31 units/L (7-56); Albumin 3.1 g/dL (3.9-5); BUN/Creatinine Ratio 70; Blood Urea Nitrogen 14 mg/dL (7-17); Calcium 9.6 mg/dL (8.4-10.2); Hemolysis Index 11
[2019-04-22] MEDS ORDERED: LANTUS SUB-Q NR (06:50)
--- NOTE | 2019-04-22 06:52 | Progress Note ---
Assessment and Plan Assessment and plan: Patient is a 29 year old woman with a history of diabetes was brought to the emergency room following a cardiac arrest. Her last well-known time was 10:30 in the morning, she was traveling with a friend, she was unresponsive in the back seat. EMS was called, CPR was started and continued here in the emergency room. Patient was intubated in the ER, noted hypotensive started on dobutamine, epinephrine and Levophed drip, given IV fluids, found to be in DKA with BG ~2200, several metabolic derangements - placed on insulin drip and admitted to ICU. BP improved and she was weaned off pressors. Still intubated on vent, minimal response. patient has been in coma for several days, no improvement. She has a DNR status order. Uncontrolled DM type 1 with hyperglycemia - increase Lantus dose, give extra 10 units - increase SSI Acute respiratory failure s/p intubated, off vent - s/p trach and peg - Tracheostomy re-adjusted on 04/17/19 - on vent, cont nebs, - s/p Trach POD 3 - Pulm following - Aspiration precautions - VAP bundle Acute anoxic encephalopathy, POA - from cardiac arrest for DM - Neurology following -MR concerning for anoxic Brain injury Cardiac arrest s/p resuscitation - likely 2/2 severe hyperglycemia - preserved EF on 2D echo Generalized Anasacara -Given a dose of Bumex DKA, severe - BG was >2200 on admission - s/p insulin drip. cont iv fluid - monitor BG q4h, on TF and on subqu insulin - adjust dose as needed Shock hypotensive +/- sepsis - resolved Now off pressors. Was on vasopressin, Levophed, Phenylephrine Sepsis with possible aspiration PNA - evident on CXR on admission with left sided infiltrates - cont abx per ID - Competed abx - Abx discontinued following notation that no evidence of liver lesion not consistent with infection per ID - Leucocytosis and thrombocytosis are likely reactive from hepatic subcapsular hematoma Head lice - multiple dosing of Permethin given - continue isolation Acute renal failure, likely vasomotor nephropathy - resolved - cont iv fluid, monitor BMP Anemia, acute on chronic - no sign of blood loss s/p 2 Units PRBC transfused Hyperkalemia, resolved with fluid and insulin Hypernatremia Resolved hypokalemia, resolved Shock liver with elevated LFT and Coagulopathy - due to cardiac arrest and hypotension - cont to monitor Liver lesion ID Physician following Discontinued abx, not consistent with infection as noted above Hypermagnesemia - monitor levels as needed Hyperphosphatemia -cont to monitor, improved Stage 1 sacral ulcer, poa - upper ext blisters - pressure ulcer prevention strategies VT Prophylaxis with Lovenox Poor prognosis DNR status Disposition: continue inpatient care, await placement I called mother Amberly [phone], no answer. History Interval history: Patient was seen and examined. Follow-up on current diagnosis respiratory failure. No overnight events reported to me.. Imaging, nursing note, chart, labs and old chart reviewed. Hospitalist Physical - Physical exam Narrative exam: Gen: On full MVS and tolerating HEENT: facial edema, atraumatic. Trach bed clean with no drainage, opens eyes sp ontanously Neck: supple, no JVD Heart: S1 and S2 reg, Tachycardia, no murmurs, rubs or gallop Lungs: Clear to auscultation, no rhonchi, no wheeze Abd: soft, non tender, non distended, normal BS, Ext: anasarca, leg edema, no cyanosis Neuro: Minimal responsive, does not follow commands, Skin: see full skin assessment. Stage 1 sacral ulcer - Constitutional Vitals: Temp Pulse Resp BP Pulse Ox 98.5 F 109 H 30 H 107/75 99 04/22/19 04:00 04/22/19 06:01 04/22/19 06:01 04/22/19 06:01 04/22/19 06:01 General appearance: Present: other (intubated) Results - Labs CBC & Chem 7: 04/22/19 03:57 04/22/19 03:57 Labs: Laboratory Last Values WBC 11.5 K/mm3 (4.5-11.0) H 04/22/19 03:57 RBC 3.44 M/mm3 (3.65-5.03) L 04/22/19 03:57 Hgb 10.6 gm/dl (10.1-14.3) 04/22/19 03:57 Hct 32.9 % (30.3-42.9) 04/22/19 03:57 MCV 96 fl (79-97) 04/22/19 03:57 MCH 31 pg (28-32) 04/22/19 03:57 MCHC 32 % (30-34) 04/22/19 03:57 RDW 16.3 % (13.2-15.2) H 04/22/19 03:57 Plt Count 510 K/mm3 (140-440) H 04/22/19 03:57 Lymph % (Auto) 16.9 % (13.4-35.0) 04/03/19 03:40 [place] % (Auto) 9.8 % (0.0-7.3) H 04/03/19 03:40 Eos % (Auto) 3.2 % (0.0-4.3) 04/03/19 03:40 Baso % (Auto) 0.4 % (0.0-1.8) 04/03/19 03:40 Lymph # 1.1 K/mm3 (1.2-5.4) L 04/03/19 03:40 [place] # 0.6 K/mm3 (0.0-0.8) 04/03/19 03:40 Eos # 0.2 K/mm3 (0.0-0.4) 04/03/19 03:40 Baso # 0.0 K/mm3 (0.0-0.1) 04/03/19 03:40 Add Manual Diff Complete 04/01/19 05:01 Total Counted 100 04/01/19 05:01 Seg Neutrophils % 69.7 % (40.0-70.0) 04/03/19 03:40 Seg Neuts % (Manual) 71.0 % (40.0-70.0) H 04/01/19 05:01 0 % 04/01/19 05:01 20.0 % (13.4-35.0) 04/01/19 05:01 Reactive Lymphs % (Man) 0 % 04/01/19 05:01 7.0 % (0.0-7.3) 04/01/19 05:01 2.0 % (0.0-4.3) 04/01/19 05:01 0 % (0.0-1.8) 04/01/19 05:01 0 % 04/01/19 05:01 0 % 04/01/19 05:01 0 % 04/01/19 05:01 0 % 04/01/19 05:01 Nucleated RBC % Not Reportable 04/01/19 05:01 Seg Neutrophils # 4.4 K/mm3 (1.8-7.7) 04/03/19 03:40 Seg Neutrophils # Man 4.8 K/mm3 (1.8-7.7) 04/01/19 05:01 Band Neutrophils # 0.0 K/mm3 04/01/19 05:01 1.4 K/mm3 (1.2-5.4) 04/01/19 05:01 Abs React Lymphs (Man) 0.0 K/mm3 04/01/19 05:01 0.5 K/mm3 (0.0-0.8) 04/01/19 05:01 0.1 K/mm3 (0.0-0.4) 04/01/19 05:01 0.0 K/mm3 (0.0-0.1) 04/01/19 05:01 0.0 K/mm3 04/01/19 05:01 0.0 K/mm3 04/01/19 05:01 0.0 K/mm3 04/01/19 05:01 Blast Cells # 0.0 K/mm3 04/01/19 05:01 WBC Morphology Not Reportable 04/01/19 05:01 Hypersegmented Neuts Not Reportable 04/01/19 05:01 Hyposegmented Neuts Not Reportable 04/01/19 05:01 Hypogranular Neuts Not Reportable 04/01/19 05:01 Not Reportable 04/01/19 05:01 Not Reportable 04/01/19 05:01 Not Reportable 04/01/19 05:01 Not Reportable 04/01/19 05:01 Not Reportable 04/01/19 05:01 Not Reportable 04/01/19 05:01 Not Reportable 04/01/19 05:01 Not Reportable 04/01/19 05:01 Plt Clumps, EDTA Not Reportable 04/01/19 05:01 Not Reportable 04/01/19 05:01 Not Reportable 04/01/19 05:01 Not Reportable 04/01/19 05:01 Plt Morphology Comment Not Reportable 04/01/19 05:01 RBC Morphology Normal 04/01/19 05:01 Dimorphic RBCs Not Reportable 04/01/19 05:01 Not Reportable 04/01/19 05:01 Not Reportable 04/01/19 05:01 Not Reportable 04/01/19 05:01 Not Reportable 04/01/19 05:01 Not Reportable 04/01/19 05:01 Not Reportable 04/01/19 05:01 Not Reportable 04/01/19 05:01 Not Reportable 04/01/19 05:01 Not Reportable 04/01/19 05:01 Not Reportable 04/01/19 05:01 Not Reportable 04/01/19 05:01 Not Reportable 04/01/19 05:01 Not Reportable 04/01/19 05:01 Not Reportable 04/01/19 05:01 Not Reportable 04/01/19 05:01 Not Reportable 04/01/19 05:01 Not Reportable 04/01/19 05:01 Not Reportable 04/01/19 05:01 Not Reportable 04/01/19 05:01 Acanthocytes (Spur) Not Reportable 04/01/19 05:01 Rouleaux Not Reportable 04/01/19 05:01 Not Reportable 04/01/19 05:01 Not Reportable 04/01/19 05:01 Not Reportable 04/01/19 05:01 Not Reportable 04/01/19 05:01 Hem Pathologist Commnt No 04/01/19 05:01 PT 13.9 Sec. (12.2-14.9) 04/01/19 17:14 INR 1.10 (0.87-1.13) 04/01/19 17:14 APTT 74.5 Sec. (24.2-36.6) H* 03/29/19 19:20 313 mg/dl (211-480) 04/01/19 17:14 4526.86 ng/mlDDU (0-234) H 04/06/19 00:06 Heparin Anti-Xa, Unfract Negative (Negative) 03/31/19 15:00 POC ABG pH 7.565 (7.35-7.45) H 04/19/19 04:35 ABG pH 7.396 pH Units (7.350-7.450) 04/03/19 05:35 POC ABG pCO2 36.2 (35-45) 04/19/19 04:35 ABG pCO2 32.2 mm Hg 04/03/19 05:35 POC ABG pO2 88 (80-105) 04/19/19 04:35 ABG pO2 97.7 mm Hg (80.0-90.0) H 04/03/19 05:35 POC ABG HCO3 32.8 (22-26 mml/L) 04/19/19 04:35 ABG HCO3 19.3 mmol/L (20.0-26.0) L 04/03/19 05:35 POC ABG Total CO2 34 (23-27mmol/L) 04/19/19 04:35 POC ABG O2 Sat 98 04/19/19 04:35 ABG O2 Saturation 97.6 % (95.0-99.0) 04/03/19 05:35 ABG O2 Content 10.9 (0.0-44) 04/03/19 05:35 POC ABG Base Excess 11 ((-2) - (+3)mmol/L) 04/19/19 04:35 ABG Base Excess -5.0 mmol/L (-2.0-3.0) L 04/03/19 05:35 ABG Hemoglobin 8.0 gm/dl (12.0-16.0) L 04/03/19 05:35 ABG Carboxyhemoglobin 2.1 % (0.0-5.0) 04/03/19 05:35 ABG Methemoglobin 0.5 % (0.0-1.5) 04/03/19 05:35 VBG pH 6.800 (7.320-7.420) L* 03/29/19 19:47 95.1 % (95.0-99.0) 04/03/19 05:35 40 % 04/19/19 04:35 Sodium 138 mmol/L (137-145) 04/22/19 03:57 Potassium 4.6 mmol/L (3.6-5.0) 04/22/19 03:57 Chloride 96.3 mmol/L (98-107) L 04/22/19 03:57 Carbon Dioxide 28 mmol/L (22-30) 04/22/19 03:57 18 mmol/L 04/22/19 03:57 BUN 14 mg/dL (7-17) 04/22/19 03:57 0.2 mg/dL (0.7-1.2) L 04/22/19 03:57 Estimated GFR > 60 ml/min 04/22/19 03:57 70 % 04/22/19 03:57 Glucose 333 mg/dL (65-100) H 04/22/19 03:57 POC Glucose 345 (70-105) H 04/22/19 05:18 Lactic Acid 3.30 mmol/L (0.7-2.0) H* 03/31/19 07:50 Calcium 9.6 mg/dL (8.4-10.2) 04/22/19 03:57 Phosphorus 4.10 mg/dL (2.5-4.5) 04/09/19 16:25 Magnesium 1.70 mg/dL (1.7-2.3) 04/22/19 03:57 Iron 26 ug/dL (37-170) L 03/31/19 08:20 TIBC 193 mcg/dL (250-450) L 03/31/19 08:20 0.20 mg/dL (0.1-1.2) 04/22/19 03:57 0.2 mg/dL (0-0.2) 04/02/19 07:48 0.5 mg/dL 04/02/19 07:48 AST 60 units/L (5-40) H 04/22/19 03:57 ALT 31 units/L (7-56) 04/22/19 03:57 204 units/L (35-129) H 04/22/19 03:57 2465 units/L (30-135) H 03/30/19 05:26 CK-MB (CK-2) 52.7 ng/mL (0.0-4.0) H 03/30/19 05:26 CK-MB (CK-2) Rel Index 2.1 (0-4) 03/30/19 05:26 < 0.010 ng/mL (0.00-0.029) 04/06/19 05:20 2.40 mg/dL (0.00-1.30) H 03/30/19 12:57 7.6 g/dL (6.3-8.2) 04/22/19 03:57 3.1 g/dL (3.9-5) L 04/22/19 03:57 0.7 % 04/22/19 03:57 See scanned result 03/31/19 15:00 Vitamin B12 > 2000 pg/mL (211-911) H 03/31/19 08:20 > 20 ng/mL (7.3-26.0) 03/31/19 08:20 HCG, Qual Negative (Negative) 03/29/19 19:20 Yellow (Yellow) 03/29/19 23:10 Slightly-cloudy (Clear) 03/29/19 23:10 6.0 (5.0-7.0) 03/29/19 23:10 Ur Specific [place] 1.021 (1.003-1.030) 03/29/19 23:10 100 mg/dl mg/dL (Negative) 03/29/19 23:10 >=500 mg/dL (Negative) 03/29/19 23:10 20 mg/dL (Negative) 03/29/19 23:10 Lg (Negative) 03/29/19 23:10 Neg (Negative) 03/29/19 23:10 Neg (Negative) 03/29/19 23:10 < 2.0 mg/dL (<2.0) 03/29/19 23:10 Ur Leukocyte Esterase Neg (Negative) 03/29/19 23:10 1.0 /HPF (0.0-6.0) 03/29/19 23:10 1.0 /HPF (0.0-6.0) 03/29/19 23:10 Few /HPF 03/29/19 23:10 Salicylates 0.8 mg/dL (2.8-20.0) L 03/30/19 Unknown Presumptive negative 03/29/19 23:10 Presumptive negative 03/29/19 23:10 Acetaminophen < 5.0 ug/mL (10.0-30.0) L 03/30/19 Unknown Ur Barbiturates Screen Presumptive negative 03/29/19 23:10 Ur Phencyclidine Scrn Presumptive negative 03/29/19 23:10 Ur Amphetamines Screen Presumptive negative 03/29/19 23:10 U Benzodiazepines Scrn Presumptive negative 03/29/19 23:10 Presumptive negative 03/29/19 23:10 U Marijuana (THC) Screen Presumptive negative 03/29/19 23:10 Disclamer 03/29/19 23:10 Heparin-induced Plt Ab Negative (Negative) 03/31/19 15:00 UF Heparin High Dose 0 % Release 03/31/19 15:00 FABIAN UFH Low Dose 0.1 0 % Release 03/31/19 15:00 FABIAN UFH Low Dose 0.5 0 % Release 03/31/19 15:00 Hepatitis A IgM Ab Non-reactive (NonReactive) 03/30/19 Unknown Hep Bs Antigen Non-reactive (Negative) 03/30/19 Unknown Hep B Core IgM Ab Non-reactive (NonReactive) 03/30/19 Unknown Non-reactive (NonReactive) 03/30/19 Unknown Flexitest 1 H 03/30/19 14:00 Blood Type O POSITIVE 03/30/19 03:30 Antibody Screen Negative 03/30/19 03:30 Crossmatch See Detail 03/30/19 03:30 Active Medications - Current Medications Current Medications: Generic Name Dose Route Start Last Admin Trade Name Freq PRN Reason Stop Dose Admin Acetaminophen 650 mg 03/29/19 23:34 04/21/19 21:02 Tylenol PO 650 mg Q4H PRN Administration Pain MILD(1-3)/Fever >100.5/WARE Albuterol/Ipratropium 1 ampul 04/20/19 20:00 04/21/19 20:46 Duoneb *Not For Prn Use* IH 04/23/19 23:59 1 ampul TIDRT ZAMZAM Administration Lipase/Protease/Amylase 1 each 04/02/19 11:44 Pancreaze 10,500 Unit FEEDTUBE PRN PRN For Clogged Feeding Tube Dextrose 50 ml 04/21/19 12:03 D50w (25gm) Syringe IV PRN PRN Hypoglycemia Enoxaparin Sodium 40 mg 04/14/19 10:00 04/21/19 09:35 Lovenox SUB-Q 40 mg QDAY@1000 ZAMZAM Administration Famotidine 20 mg 04/02/19 10:00 04/21/19 21:02 Pepcid PO 20 mg BID ZAMZAM Administration Fentanyl 50 mcg 04/05/19 11:00 04/19/19 02:13 Sublimaze IV 50 mcg Q2H PRN Administration Pain , Severe (7-10)/AGITATION Fentanyl 25 mcg 04/14/19 14:00 04/20/19 14:08 Duragesic TD 25 mcg Q3D ZAMZAM Administration Hydrophilic Ointment 1 applic 03/30/19 11:24 04/21/19 09:53 Vaseline Lip Therapy TP 1 applic Q2HR PRN Administration Dry Lips Insulin Glargine 20 units 04/09/19 22:00 04/21/19 23:00 Lantus SUB-Q 20 units QHS ZAMZAM Administration Insulin Human Lispro 0 unit 04/21/19 13:00 04/22/19 05:23 Humalog SUB-Q 8 unit Q6HR ZAMZAM Administration Protocol Levetiracetam 500 mg 04/03/19 10:00 04/21/19 21:02 Keppra PO 500 mg BID ZAMZAM Administration Metoprolol Tartrate 5 mg 04/14/19 13:06 04/18/19 18:42 Lopressor IV 5 mg Q6HR PRN Administration Tachyarrhythmias Metoprolol Tartrate 25 mg 04/16/19 10:00 04/21/19 21:02 Lopressor PO 25 mg BID ZAMZAM Administration Multi-Ingred Cream/Lotion/Oil/Oint 1 applic 03/30/19 11:24 04/06/19 11:39 Artificial Tears Ophth Oint OU 1 applic Q4HR PRN Administration Dry Eye(s) Ondansetron HCl 4 mg 03/29/19 23:34 Zofran IV Q8H PRN Nausea And Vomiting Scopolamine 1 each 04/17/19 12:00 04/20/19 11:57 Transderm-Scop TD 1 each Q3D ZAMZAM Administration Simple Syrup 15 ml 04/02/19 11:44 04/14/19 01:53 Simple Syrup FEEDTUBE 15 ml PRN PRN Administration Hypoglycemia Simple Syrup 30 ml 04/02/19 11:44 Simple Syrup FEEDTUBE PRN PRN Hypoglycemia Sodium Bicarbonate 325 mg 04/02/19 11:44 Sodium Bicarbonate FEEDTUBE PRN PRN For Clogged Feeding Tube Sodium Chloride 10 ml 03/30/19 10:00 04/21/19 21:03 Sodium Chloride Flush Syringe 10 Ml IV 10 ml BID ZAMZAM Administration Sodium Chloride 10 ml 03/29/19 23:34 Sodium Chloride Flush Syringe 10 Ml IV PRN PRN LINE FLUSH Nutrition/Malnutrition Assess - Dietary Evaluation Nutrition/Malnutrition Findings: Nutrition Notes Start: 03/30/19 13:14 Freq: Status: Active Protocol: Document 09/25/19 10:55 LM (Rec: 04/18/19 11:07 LM [id number]) Nutrition Notes Initial or Follow up Reassessment Current Diagnosis Acute Kidney Injury,Diabetes, Sepsis,Respiratory Failure Other Pertinent Diagnosis s/p trach & PEG, s/p cardiac arrest, DKA, ARF, Shock liver Current Diet Glucerna 1.2 at 50 ml/hr Labs/Tests POC glu 149 Pertinent Medications Reviewed Height 5 ft Weight 42.5 kg [place] Body Weight (kg) 45.45 BMI 18.3 Subjective/Other Information Glucerna running at 50 ml/hr via PEG. Per RN pt is tolerating TF. Percent of energy/protein needs met: 97%/100% Burn Absent Trauma Absent #1 Nutrition Diagnosis Inadequate oral intake Diagnosis Progress(for reassessment Continues documentation) Is patient on ventilator? Yes Is Patient Ambulatory and/or Out of Bed No REE-([facility]-confined to bed) 1276.272 Kcal/Kg value to use for calculation 35 Approximate Energy Requirements Using 1488 kcal/Kg Calculation Used for Recommendations [facility] Additional Notes Protein: 1.2-2g/k-86g/day Fluids: 1ml/kcal Nutrition Intervention Change Diet Order: Continue TF Nutrition Support: Glucerna 1.2 at 50ml/hr with 80ml water flush q4h. Kcal 1,440 Protein (gm) 72 Fluid (mL) 966 Goal #1 Meet at least 75% of energy and protein needs Follow-Up By: 04/25/19 Additional Comments F/U for TF tolerance/rate
[2019-04-22] MEDS: DUONEB *Not for PRN Use IH SCH ×3 (07:44→20:54)
[2019-04-22] MEDS: METOPROLOL IV PRN (08:29)
[2019-04-22] MEDS: SODIUM CHLORIDE FLUSH SYRINGE 10 ML IV PRN (08:29)
[2019-04-22] MEDS: VASELINE LIP THERAPY TP PRN (08:37)
[2019-04-22] MEDS: KEPPRA PO SCH ×2 (09:50→21:11)
[2019-04-22] MEDS: METOPROLOL PO SCH ×2 (09:50→21:11)
[2019-04-22] MEDS: ENOXAPARIN SUB-Q SCH (09:50)
[2019-04-22] MEDS: SODIUM CHLORIDE FLUSH SYRINGE 10 ML IV SCH ×2 (09:50→21:11)
[2019-04-22] MEDS: PEPCID PO SCH ×2 (09:50→21:11)
--- NOTE | 2019-04-22 14:33 | Progress Note ---
Assessment and Plan Acute hypoxemic respiratory failure, s/p trach to ATP Acute toxic metabolic encephalopathy; MRI consistent with diffuse anoxic injury Diabetic ketoacidosis, resolved. Severe sepsis with shock, resolved Possible aspiration pneumonia. History of polysubstance abuse. Leukocytosis. Elevated serum transaminases,resolved Hyponatremia resolved Anemia that is macrocytic. History of seizure disorder. Severe metabolic acidosis-resolved Acute kidney injury, possibly on chronic -trach care, airway clearance techniques, - add robinul to scopolamine patch for secretion management -continue bronchodilators with pulmonary hygiene per RT - continue to wean supplemental O2 to keep O2 sats > 90% - VTE prophylaxis-enoxaparin - Stress ulcer prophylaxis - continue accuchecks with glycemic control per SSI for target blood glucose 140-180 mg/dL - continue Keppra for seizures - continue mobility protocols / off loading for pressure ulcer prevention - continue other care per attending / other consultants -discharge planning CONDITION: FAIR PROGNOSIS: POOR CODE STATUS:DNAR Subjective Date of service: 04/22/19 Principal diagnosis: Ac Hypoxemic Resp Failure; DKA; Severe sepsis with shock; ANGELICA Interval history: Patient is seen today for: Acute Hypoxemic Resp Failure; Ac toxic metabolic encephalopathy; DKA; Severe sepsis with shock; Possible aspiration pneumonia; History of polysubstance abuse; History of seizure disorder; Acute kidney injury, possibly on chronic Seen and examined at bedside; 24hour events reviewed; nursing and respiratory care staff consulted; no adverse overnight events reported to me; resting peacefully in bed; AMS is persistent; s/p tracheostomy to ATP no emesis or overt aspiration and no high grade fevers. Copious white secretions,on going strong cough, no acute changes reported per RN and RT Vitals, labs,medications, chart reviewed. Objective Vital Signs - 12hr 04/22/19 04/22/19 04/22/19 03:00 03:52 04:00 Temperature 98.5 F Pulse Rate 101 H Pulse Rate [ Anterior Bilateral] Pulse Rate [ 99 H From Monitor] Respiratory 30 H 22 Rate Respiratory Rate [Anterior Bilateral] Blood Pressure 113/79 O2 Sat by Pulse 95 98 99 Oximetry O2 Sat by Pulse Oximetry [ Assessment] 04/22/19 04/22/19 04/22/19 04:01 05:00 06:01 Temperature Pulse Rate 106 H 104 H 109 H Pulse Rate [ Anterior Bilateral] Pulse Rate [ From Monitor] Respiratory 36 H 26 H 30 H Rate Respiratory Rate [Anterior Bilateral] Blood Pressure 114/71 128/83 107/75 O2 Sat by Pulse 98 99 99 Oximetry O2 Sat by Pulse Oximetry [ Assessment] 04/22/19 04/22/19 04/22/19 07:00 07:01 07:43 Temperature Pulse Rate 131 H 124 H Pulse Rate [ Anterior Bilateral] Pulse Rate [ From Monitor] Respiratory 29 H Rate Respiratory Rate [Anterior Bilateral] Blood Pressure 107/75 O2 Sat by Pulse 99 97 Oximetry O2 Sat by Pulse Oximetry [ Assessment] 04/22/19 04/22/19 04/22/19 07:45 08:00 08:29 Temperature 98.9 F Pulse Rate 127 H 131 H Pulse Rate [ 119 H Anterior Bilateral] Pulse Rate [ 131 H From Monitor] Respiratory 32 H Rate Respiratory 20 Rate [Anterior Bilateral] Blood Pressure 115/78 115/78 O2 Sat by Pulse 94 Oximetry O2 Sat by Pulse Oximetry [ Assessment] 04/22/19 04/22/19 04/22/19 08:37 09:00 09:50 Temperature Pulse Rate 109 H 112 H Pulse Rate [ Anterior Bilateral] Pulse Rate [ From Monitor] Respiratory 32 H Rate Respiratory Rate [Anterior Bilateral] Blood Pressure 112/73 112/75 O2 Sat by Pulse 96 Oximetry O2 Sat by Pulse 97 Oximetry [ Assessment] 04/22/19 04/22/19 04/22/19 10:00 11:00 12:00 Temperature 97.8 F Pulse Rate 114 H 104 H 103 H Pulse Rate [ Anterior Bilateral] Pulse Rate [ 109 H From Monitor] Respiratory 32 H 21 36 H Rate Respiratory Rate [Anterior Bilateral] Blood Pressure 106/71 94/64 97/67 O2 Sat by Pulse 95 Oximetry O2 Sat by Pulse Oximetry [ Assessment] 04/22/19 13:00 Temperature Pulse Rate 114 H Pulse Rate [ Anterior Bilateral] Pulse Rate [ From Monitor] Respiratory 38 H Rate Respiratory Rate [Anterior Bilateral] Blood Pressure 103/70 O2 Sat by Pulse 92 Oximetry O2 Sat by Pulse Oximetry [ Assessment] Constitutional: no acute distress, other (young CF normocephalic and atraumatic s/p tracheostomy to ATP, copious secretions) Eyes: non-icteric ENT: oropharynx moist, other Neck: supple, no lymphadenopathy, no JVD Effort: mildly labored Ascultation: Bilateral: clear, diminished breath sounds, rhonchi Percussion: Bilateral: not dull Cardiovascular: regular rate and rhythm Gastrointestinal: normoactive bowel sounds, soft, non-tender, non-distended, other (PEG tube) Integumentary: erythema (noted on upper extremity) Extremities: no cyanosis, no edema, pink and warm, pulses normal, no ischemia or petechiae Neurologic: unable to assess (awake, alert, not obeying commands) Psychiatric: other (unable to assess) CBC and BMP: 04/22/19 03:57 04/22/19 03:57 ABG, PT/INR, D-dimer: ABG POC ABG pH 7.565 (7.35-7.45) H 04/19/19 04:35 ABG pH 7.396 pH Units (7.350-7.450) 04/03/19 05:35 POC ABG pCO2 36.2 (35-45) 04/19/19 04:35 ABG pCO2 32.2 mm Hg 04/03/19 05:35 POC ABG pO2 88 (80-105) 04/19/19 04:35 ABG pO2 97.7 mm Hg (80.0-90.0) H 04/03/19 05:35 POC ABG HCO3 32.8 (22-26 mml/L) 04/19/19 04:35 POC ABG Total CO2 34 (23-27mmol/L) 04/19/19 04:35 POC ABG O2 Sat 98 04/19/19 04:35 ABG O2 Saturation 97.6 % (95.0-99.0) 04/03/19 05:35 PT/INR, D-dimer PT 13.9 Sec. (12.2-14.9) 04/01/19 17:14 INR 1.10 (0.87-1.13) 04/01/19 17:14 4526.86 ng/mlDDU (0-234) H 04/06/19 00:06 Abnormal lab findings: Abnormal Labs 03/29/19 03/29/19 03/29/19 19:11 19:20 19:20 WBC 26.7 H RBC 2.52 L Hgb 8.1 L Hct MCV 148 H MCH MCHC 22 L RDW 18.5 H Plt Count [place] % (Auto) Lymph # Seg Neuts % (Manual) 82.0 H Lymphocytes % (Manual) 7.0 L Nucleated RBC % Seg Neutrophils # Man 21.9 H Lymphocytes # (Manual) Monocytes # (Manual) 1.9 H PT 21.8 H INR 1.95 H APTT 74.5 H* D-Dimer POC ABG pH ABG pH POC ABG pCO2 POC ABG pO2 ABG pO2 ABG HCO3 ABG O2 Saturation ABG Base Excess ABG Hemoglobin VBG pH Oxyhemoglobin Sodium Potassium Chloride Carbon Dioxide BUN Creatinine Glucose POC Glucose > 500 H Lactic Acid Calcium Phosphorus Magnesium Iron TIBC Direct Bilirubin AST ALT Alkaline Phosphatase Total Creatine Kinase CK-MB (CK-2) C-Reactive Protein Total Protein Albumin Vitamin B12 Salicylates Acetaminophen Miscellaneous Test Crossmatch 03/29/19 03/29/19 03/29/19 19:20 19:47 20:59 WBC RBC Hgb Hct MCV MCH MCHC RDW Plt Count [place] % (Auto) Lymph # Seg Neuts % (Manual) Lymphocytes % (Manual) Nucleated RBC % Seg Neutrophils # Man Lymphocytes # (Manual) Monocytes # (Manual) PT INR APTT D-Dimer POC ABG pH 6.892 L ABG pH POC ABG pCO2 POC ABG pO2 236 H ABG pO2 ABG HCO3 ABG O2 Saturation ABG Base Excess ABG Hemoglobin VBG pH 6.800 L* Oxyhemoglobin Sodium 118 L* Potassium 9.0 H* Chloride 64.5 L Carbon Dioxide 7 L* BUN 53 H Creatinine 2.1 H Glucose 2196 H* POC Glucose Lactic Acid Calcium 12.4 H* Phosphorus Magnesium Iron TIBC Direct Bilirubin AST 3900 H ALT 1034 H Alkaline Phosphatase 316 H Total Creatine Kinase CK-MB (CK-2) C-Reactive Protein Total Protein 5.1 L Albumin 2.8 L Vitamin B12 Salicylates Acetaminophen Miscellaneous Test Crossmatch 03/29/19 03/29/19 03/29/19 22:45 22:45 22:45 WBC RBC Hgb Hct MCV MCH MCHC RDW Plt Count [place] % (Auto) Lymph # Seg Neuts % (Manual) Lymphocytes % (Manual) Nucleated RBC % Seg Neutrophils # Man Lymphocytes # (Manual) Monocytes # (Manual) PT INR APTT D-Dimer POC ABG pH ABG pH POC ABG pCO2 POC ABG pO2 ABG pO2 ABG HCO3 ABG O2 Saturation ABG Base Excess ABG Hemoglobin VBG pH Oxyhemoglobin Sodium 132 L D Potassium 7.0 H* Chloride 84.3 L Carbon Dioxide 3 L* BUN 48 H Creatinine 1.8 H Glucose 1779 H* POC Glucose Lactic Acid Calcium Phosphorus 21.70 H Magnesium 4.70 H Iron TIBC Direct Bilirubin AST ALT Alkaline Phosphatase Total Creatine Kinase 363 H CK-MB (CK-2) C-Reactive Protein Total Protein Albumin Vitamin B12 Salicylates Acetaminophen Miscellaneous Test Crossmatch 03/29/19 03/29/19 03/30/19 Unknown Unknown 00:11 WBC RBC Hgb Hct MCV MCH MCHC RDW Plt Count [place] % (Auto) Lymph # Seg Neuts % (Manual) Lymphocytes % (Manual) Nucleated RBC % Seg Neutrophils # Man Lymphocytes # (Manual) Monocytes # (Manual) PT INR APTT D-Dimer POC ABG pH ABG pH POC ABG pCO2 POC ABG pO2 ABG pO2 ABG HCO3 ABG O2 Saturation ABG Base Excess ABG Hemoglobin VBG pH Oxyhemoglobin Sodium 122 L Potassium 7.9 H* 6.4 H* Chloride 75.3 L 89.7 L Carbon Dioxide 3 L* 12 L D BUN 52 H 46 H Creatinine 2.0 H 1.7 H Glucose 2043 H* 1591 H* POC Glucose Lactic Acid Calcium 7.8 L Phosphorus 19.30 H Magnesium 3.90 H Iron TIBC Direct Bilirubin AST ALT Alkaline Phosphatase Total Creatine Kinase CK-MB (CK-2) C-Reactive Protein Total Protein Albumin Vitamin B12 Salicylates Acetaminophen Miscellaneous Test Crossmatch 03/30/19 03/30/19 03/30/19 00:11 02:14 02:14 WBC RBC Hgb Hct MCV MCH MCHC RDW Plt Count [place] % (Auto) Lymph # Seg Neuts % (Manual) Lymphocytes % (Manual) Nucleated RBC % Seg Neutrophils # Man Lymphocytes # (Manual) Monocytes # (Manual) PT INR APTT D-Dimer POC ABG pH ABG pH POC ABG pCO2 POC ABG pO2 ABG pO2 ABG HCO3 ABG O2 Saturation ABG Base Excess ABG Hemoglobin VBG pH Oxyhemoglobin Sodium Potassium Chloride Carbon Dioxide 9 L* BUN 45 H Creatinine 1.7 H Glucose 1155 H* POC Glucose Lactic Acid Calcium 7.9 L Phosphorus 10.90 H D 5.30 H D Magnesium 3.10 H 2.90 H Iron TIBC Direct Bilirubin AST ALT Alkaline Phosphatase Total Creatine Kinase CK-MB (CK-2) C-Reactive Protein Total Protein Albumin Vitamin B12 Salicylates Acetaminophen Miscellaneous Test Crossmatch 03/30/19 03/30/19 03/30/19 03:15 03:30 04:23 WBC 18.0 H RBC 2.31 L Hgb 7.3 L Hct 23.8 L D MCV 103 H MCH MCHC RDW 17.1 H Plt Count [place] % (Auto) Lymph # Seg Neuts % (Manual) 79.0 H Lymphocytes % (Manual) Nucleated RBC % Seg Neutrophils # Man 14.2 H Lymphocytes # (Manual) Monocytes # (Manual) PT INR APTT D-Dimer POC ABG pH 7.251 L ABG pH POC ABG pCO2 POC ABG pO2 156 H ABG pO2 ABG HCO3 ABG O2 Saturation ABG Base Excess ABG Hemoglobin VBG pH Oxyhemoglobin Sodium Potassium Chloride Carbon Dioxide BUN Creatinine Glucose POC Glucose Lactic Acid Calcium Phosphorus Magnesium Iron TIBC Direct Bilirubin AST ALT Alkaline Phosphatase Total Creatine Kinase CK-MB (CK-2) C-Reactive Protein Total Protein Albumin Vitamin B12 Salicylates Acetaminophen Miscellaneous Test Crossmatch See Detail 03/30/19 03/30/19 03/30/19 05:26 05:26 10:38 WBC RBC Hgb Hct MCV MCH MCHC RDW Plt Count [place] % (Auto) Lymph # Seg Neuts % (Manual) Lymphocytes % (Manual) Nucleated RBC % Seg Neutrophils # Man Lymphocytes # (Manual) Monocytes # (Manual) PT INR APTT D-Dimer POC ABG pH ABG pH POC ABG pCO2 POC ABG pO2 ABG pO2 ABG HCO3 ABG O2 Saturation ABG Base Excess ABG Hemoglobin VBG pH Oxyhemoglobin Sodium 158 H D Potassium 3.5 L Chloride 109.3 H Carbon Dioxide 19 L D BUN 40 H Creatinine 1.5 H Glucose 760 H* POC Glucose 380 H Lactic Acid Calcium 7.3 L Phosphorus Magnesium 2.60 H Iron TIBC Direct Bilirubin AST 26846 H ALT 2156 H Alkaline Phosphatase 271 H Total Creatine Kinase 2465 H CK-MB (CK-2) 52.7 H C-Reactive Protein Total Protein 4.5 L Albumin 2.4 L Vitamin B12 Salicylates Acetaminophen Miscellaneous Test Crossmatch 03/30/19 03/30/19 03/30/19 11:08 12:25 12:57 WBC RBC Hgb Hct MCV MCH MCHC RDW Plt Count [place] % (Auto) Lymph # Seg Neuts % (Manual) Lymphocytes % (Manual) Nucleated RBC % Seg Neutrophils # Man Lymphocytes # (Manual) Monocytes # (Manual) PT INR APTT D-Dimer POC ABG pH ABG pH POC ABG pCO2 POC ABG pO2 ABG pO2 ABG HCO3 ABG O2 Saturation ABG Base Excess ABG Hemoglobin VBG pH Oxyhemoglobin Sodium 156 H Potassium 3.2 L Chloride 116.4 H Carbon Dioxide 21 L BUN 37 H Creatinine Glucose 162 H POC Glucose 263 H 196 H Lactic Acid Calcium 7.2 L Phosphorus Magnesium Iron TIBC Direct Bilirubin AST ALT Alkaline Phosphatase Total Creatine Kinase CK-MB (CK-2) C-Reactive Protein Total Protein Albumin Vitamin B12 Salicylates Acetaminophen Miscellaneous Test Crossmatch 03/30/19 03/30/19 03/30/19 12:57 12:57 12:57 WBC RBC Hgb Hct MCV MCH MCHC RDW Plt Count [place] % (Auto) Lymph # Seg Neuts % (Manual) Lymphocytes % (Manual) Nucleated RBC % Seg Neutrophils # Man Lymphocytes # (Manual) Monocytes # (Manual) PT 21.0 H INR 1.86 H APTT D-Dimer POC ABG pH ABG pH POC ABG pCO2 POC ABG pO2 ABG pO2 ABG HCO3 ABG O2 Saturation ABG Base Excess ABG Hemoglobin VBG pH Oxyhemoglobin Sodium Potassium Chloride Carbon Dioxide BUN Creatinine Glucose POC Glucose Lactic Acid 9.00 H* Calcium Phosphorus Magnesium Iron TIBC Direct Bilirubin AST ALT Alkaline Phosphatase Total Creatine Kinase CK-MB (CK-2) C-Reactive Protein 2.40 H Total Protein Albumin Vitamin B12 Salicylates Acetaminophen Miscellaneous Test Crossmatch 03/30/19 03/30/19 03/30/19 13:23 14:00 14:47 WBC RBC Hgb Hct MCV MCH MCHC RDW Plt Count [place] % (Auto) Lymph # Seg Neuts % (Manual) Lymphocytes % (Manual) Nucleated RBC % Seg Neutrophils # Man Lymphocytes # (Manual) Monocytes # (Manual) PT INR APTT D-Dimer POC ABG pH ABG pH POC ABG pCO2 POC ABG pO2 ABG pO2 ABG HCO3 ABG O2 Saturation ABG Base Excess ABG Hemoglobin VBG pH Oxyhemoglobin Sodium Potassium Chloride Carbon Dioxide BUN Creatinine Glucose POC Glucose 176 H 245 H Lactic Acid Calcium Phosphorus Magnesium Iron TIBC Direct Bilirubin AST ALT Alkaline Phosphatase Total Creatine Kinase CK-MB (CK-2) C-Reactive Protein Total Protein Albumin Vitamin B12 Salicylates Acetaminophen Miscellaneous Test Flexitest 1 H Crossmatch 03/30/19 03/30/19 03/30/19 16:11 17:11 17:46 WBC RBC Hgb Hct MCV MCH MCHC RDW Plt Count [place] % (Auto) Lymph # Seg Neuts % (Manual) Lymphocytes % (Manual) Nucleated RBC % Seg Neutrophils # Man Lymphocytes # (Manual) Monocytes # (Manual) PT INR APTT D-Dimer POC ABG pH ABG pH POC ABG pCO2 POC ABG pO2 ABG pO2 ABG HCO3 ABG O2 Saturation ABG Base Excess ABG Hemoglobin VBG pH Oxyhemoglobin Sodium Potassium Chloride Carbon Dioxide BUN Creatinine Glucose POC Glucose 181 H 167 H 125 H Lactic Acid Calcium Phosphorus Magnesium Iron TIBC Direct Bilirubin AST ALT Alkaline Phosphatase Total Creatine Kinase CK-MB (CK-2) C-Reactive Protein Total Protein Albumin Vitamin B12 Salicylates Acetaminophen Miscellaneous Test Crossmatch 03/30/19 03/30/19 03/30/19 18:59 21:31 22:19 WBC RBC Hgb Hct MCV MCH MCHC RDW Plt Count [place] % (Auto) Lymph # Seg Neuts % (Manual) Lymphocytes % (Manual) Nucleated RBC % Seg Neutrophils # Man Lymphocytes # (Manual) Monocytes # (Manual) PT INR APTT D-Dimer POC ABG pH ABG pH POC ABG pCO2 POC ABG pO2 ABG pO2 ABG HCO3 ABG O2 Saturation ABG Base Excess ABG Hemoglobin VBG pH Oxyhemoglobin Sodium Potassium Chloride Carbon Dioxide BUN Creatinine Glucose POC Glucose 140 H 166 H 115 H Lactic Acid Calcium Phosphorus Magnesium Iron TIBC Direct Bilirubin AST ALT Alkaline Phosphatase Total Creatine Kinase CK-MB (CK-2) C-Reactive Protein Total Protein Albumin Vitamin B12 Salicylates Acetaminophen Miscellaneous Test Crossmatch 03/30/19 03/30/19 03/30/19 23:13 Unknown Unknown WBC RBC Hgb Hct MCV MCH MCHC RDW Plt Count [place] % (Auto) Lymph # Seg Neuts % (Manual) Lymphocytes % (Manual) Nucleated RBC % Seg Neutrophils # Man Lymphocytes # (Manual) Monocytes # (Manual) PT INR APTT D-Dimer POC ABG pH ABG pH POC ABG pCO2 POC ABG pO2 ABG pO2 47.8 L ABG HCO3 18.8 L ABG O2 Saturation 83.8 L ABG Base Excess -5.4 L ABG Hemoglobin 6.8 L VBG pH Oxyhemoglobin 81.8 L Sodium 157 H Potassium 3.3 L Chloride 117.9 H Carbon Dioxide 20 L BUN 36 H Creatinine Glucose 150 H POC Glucose 112 H Lactic Acid Calcium 7.2 L Phosphorus Magnesium Iron TIBC Direct Bilirubin AST ALT Alkaline Phosphatase Total Creatine Kinase CK-MB (CK-2) C-Reactive Protein Total Protein Albumin Vitamin B12 Salicylates Acetaminophen Miscellaneous Test Crossmatch 03/30/19 03/30/19 03/31/19 Unknown Unknown 00:03 WBC RBC Hgb Hct MCV MCH MCHC RDW Plt Count [place] % (Auto) Lymph # Seg Neuts % (Manual) Lymphocytes % (Manual) Nucleated RBC % Seg Neutrophils # Man Lymphocytes # (Manual) Monocytes # (Manual) PT INR APTT D-Dimer POC ABG pH ABG pH POC ABG pCO2 POC ABG pO2 ABG pO2 ABG HCO3 ABG O2 Saturation ABG Base Excess ABG Hemoglobin VBG pH Oxyhemoglobin Sodium Potassium Chloride Carbon Dioxide BUN Creatinine Glucose POC Glucose 188 H Lactic Acid Calcium Phosphorus Magnesium Iron TIBC Direct Bilirubin AST ALT Alkaline Phosphatase Total Creatine Kinase CK-MB (CK-2) C-Reactive Protein Total Protein Albumin Vitamin B12 Salicylates 0.8 L Acetaminophen < 5.0 L Miscellaneous Test Crossmatch 03/31/19 03/31/19 03/31/19 01:18 03:07 03:50 WBC RBC Hgb Hct MCV MCH MCHC RDW Plt Count [place] % (Auto) Lymph # Seg Neuts % (Manual) Lymphocytes % (Manual) Nucleated RBC % Seg Neutrophils # Man Lymphocytes # (Manual) Monocytes # (Manual) PT INR APTT D-Dimer POC ABG pH ABG pH 7.525 H POC ABG pCO2 POC ABG pO2 ABG pO2 178.0 H ABG HCO3 19.5 L ABG O2 Saturation 99.2 H ABG Base Excess -3.1 L ABG Hemoglobin 5.8 L VBG pH Oxyhemoglobin Sodium Potassium Chloride Carbon Dioxide BUN Creatinine Glucose POC Glucose 114 H 107 H Lactic Acid Calcium Phosphorus Magnesium Iron TIBC Direct Bilirubin AST ALT Alkaline Phosphatase Total Creatine Kinase CK-MB (CK-2) C-Reactive Protein Total Protein Albumin Vitamin B12 Salicylates Acetaminophen Miscellaneous Test Crossmatch 09/02/0903/31/19 03/31/19 03:51 03:51 04:05 WBC RBC 1.89 L Hgb 6.1 L Hct 18.2 L* MCV MCH MCHC RDW 17.7 H Plt Count 89 L [place] % (Auto) Lymph # Seg Neuts % (Manual) 86.0 H Lymphocytes % (Manual) 10.0 L Nucleated RBC % 1.0 H Seg Neutrophils # Man Lymphocytes # (Manual) 0.7 L Monocytes # (Manual) PT INR APTT D-Dimer POC ABG pH ABG pH POC ABG pCO2 POC ABG pO2 ABG pO2 ABG HCO3 ABG O2 Saturation ABG Base Excess ABG Hemoglobin VBG pH Oxyhemoglobin Sodium 151 H Potassium 3.2 L Chloride 119.4 H Carbon Dioxide 17 L BUN 35 H Creatinine Glucose 139 H POC Glucose 153 H Lactic Acid Calcium 7.1 L Phosphorus Magnesium Iron TIBC Direct Bilirubin AST ALT Alkaline Phosphatase Total Creatine Kinase CK-MB (CK-2) C-Reactive Protein Total Protein Albumin Vitamin B12 Salicylates Acetaminophen Miscellaneous Test Crossmatch 03/31/19 03/31/19 03/31/19 05:05 05:35 06:23 WBC RBC Hgb Hct MCV MCH MCHC RDW Plt Count [place] % (Auto) Lymph # Seg Neuts % (Manual) Lymphocytes % (Manual) Nucleated RBC % Seg Neutrophils # Man Lymphocytes # (Manual) Monocytes # (Manual) PT INR APTT D-Dimer POC ABG pH ABG pH POC ABG pCO2 POC ABG pO2 ABG pO2 ABG HCO3 ABG O2 Saturation ABG Base Excess ABG Hemoglobin VBG pH Oxyhemoglobin Sodium Potassium Chloride Carbon Dioxide BUN Creatinine Glucose POC Glucose 176 H 133 H Lactic Acid 3.20 H* Calcium Phosphorus Magnesium Iron TIBC Direct Bilirubin AST ALT Alkaline Phosphatase Total Creatine Kinase CK-MB (CK-2) C-Reactive Protein Total Protein Albumin Vitamin B12 Salicylates Acetaminophen Miscellaneous Test Crossmatch 03/31/19 03/31/19 03/31/19 07:50 07:51 08:20 WBC RBC Hgb Hct MCV MCH MCHC RDW Plt Count [place] % (Auto) Lymph # Seg Neuts % (Manual) Lymphocytes % (Manual) Nucleated RBC % Seg Neutrophils # Man Lymphocytes # (Manual) Monocytes # (Manual) PT INR APTT D-Dimer POC ABG pH ABG pH POC ABG pCO2 POC ABG pO2 ABG pO2 ABG HCO3 ABG O2 Saturation ABG Base Excess ABG Hemoglobin VBG pH Oxyhemoglobin Sodium Potassium Chloride Carbon Dioxide BUN Creatinine Glucose POC Glucose 135 H Lactic Acid 3.30 H* Calcium Phosphorus Magnesium Iron 26 L TIBC 193 L Direct Bilirubin AST ALT Alkaline Phosphatase Total Creatine Kinase CK-MB (CK-2) C-Reactive Protein Total Protein Albumin Vitamin B12 Salicylates Acetaminophen Miscellaneous Test Crossmatch 03/31/19 03/31/19 03/31/19 08:20 08:20 09:06 WBC RBC Hgb Hct MCV MCH MCHC RDW Plt Count [place] % (Auto) Lymph # Seg Neuts % (Manual) Lymphocytes % (Manual) Nucleated RBC % Seg Neutrophils # Man Lymphocytes # (Manual) Monocytes # (Manual) PT INR APTT D-Dimer POC ABG pH ABG pH POC ABG pCO2 POC ABG pO2 ABG pO2 ABG HCO3 ABG O2 Saturation ABG Base Excess ABG Hemoglobin VBG pH Oxyhemoglobin Sodium 153 H Potassium 3.0 L Chloride 118.9 H Carbon Dioxide 18 L BUN 37 H Creatinine Glucose 132 H POC Glucose 145 H Lactic Acid Calcium 7.1 L Phosphorus Magnesium Iron TIBC Direct Bilirubin AST ALT Alkaline Phosphatase Total Creatine Kinase CK-MB (CK-2) C-Reactive Protein Total Protein Albumin Vitamin B12 > 2000 H Salicylates Acetaminophen Miscellaneous Test Crossmatch 03/31/19 03/31/19 03/31/19 10:47 11:49 13:04 WBC RBC Hgb Hct MCV MCH MCHC RDW Plt Count [place] % (Auto) Lymph # Seg Neuts % (Manual) Lymphocytes % (Manual) Nucleated RBC % Seg Neutrophils # Man Lymphocytes # (Manual) Monocytes # (Manual) PT INR APTT D-Dimer POC ABG pH ABG pH POC ABG pCO2 POC ABG pO2 ABG pO2 ABG HCO3 ABG O2 Saturation ABG Base Excess ABG Hemoglobin VBG pH Oxyhemoglobin Sodium Potassium Chloride Carbon Dioxide BUN Creatinine Glucose POC Glucose 153 H 174 H 214 H Lactic Acid Calcium Phosphorus Magnesium Iron TIBC Direct Bilirubin AST ALT Alkaline Phosphatase Total Creatine Kinase CK-MB (CK-2) C-Reactive Protein Total Protein Albumin Vitamin B12 Salicylates Acetaminophen Miscellaneous Test Crossmatch 03/31/19 03/31/19 03/31/19 13:42 15:08 16:08 WBC RBC Hgb Hct MCV MCH MCHC RDW Plt Count [place] % (Auto) Lymph # Seg Neuts % (Manual) Lymphocytes % (Manual) Nucleated RBC % Seg Neutrophils # Man Lymphocytes # (Manual) Monocytes # (Manual) PT INR APTT D-Dimer POC ABG pH ABG pH POC ABG pCO2 POC ABG pO2 ABG pO2 ABG HCO3 ABG O2 Saturation ABG Base Excess ABG Hemoglobin VBG pH Oxyhemoglobin Sodium Potassium Chloride Carbon Dioxide BUN Creatinine Glucose POC Glucose 186 H 136 H 150 H Lactic Acid Calcium Phosphorus Magnesium Iron TIBC Direct Bilirubin AST ALT Alkaline Phosphatase Total Creatine Kinase CK-MB (CK-2) C-Reactive Protein Total Protein Albumin Vitamin B12 Salicylates Acetaminophen Miscellaneous Test Crossmatch 03/31/19 03/31/19 03/31/19 17:11 17:30 17:30 WBC RBC Hgb 7.7 L Hct 23.0 L MCV MCH MCHC RDW Plt Count [place] % (Auto) Lymph # Seg Neuts % (Manual) Lymphocytes % (Manual) Nucleated RBC % Seg Neutrophils # Man Lymphocytes # (Manual) Monocytes # (Manual) PT INR APTT D-Dimer POC ABG pH ABG pH POC ABG pCO2 POC ABG pO2 ABG pO2 ABG HCO3 ABG O2 Saturation ABG Base Excess ABG Hemoglobin VBG pH Oxyhemoglobin Sodium 153 H Potassium 3.5 L Chloride 119.3 H Carbon Dioxide 20 L BUN 34 H Creatinine Glucose 162 H POC Glucose 140 H Lactic Acid Calcium 7.6 L Phosphorus Magnesium Iron TIBC Direct Bilirubin AST ALT Alkaline Phosphatase Total Creatine Kinase CK-MB (CK-2) C-Reactive Protein Total Protein Albumin Vitamin B12 Salicylates Acetaminophen Miscellaneous Test Crossmatch 03/31/19 03/31/19 03/31/19 17:59 18:58 20:28 WBC RBC Hgb Hct MCV MCH MCHC RDW Plt Count [place] % (Auto) Lymph # Seg Neuts % (Manual) Lymphocytes % (Manual) Nucleated RBC % Seg Neutrophils # Man Lymphocytes # (Manual) Monocytes # (Manual) PT INR APTT D-Dimer POC ABG pH ABG pH POC ABG pCO2 POC ABG pO2 ABG pO2 ABG HCO3 ABG O2 Saturation ABG Base Excess ABG Hemoglobin VBG pH Oxyhemoglobin Sodium Potassium Chloride Carbon Dioxide BUN Creatinine Glucose POC Glucose 156 H 152 H 138 H Lactic Acid Calcium Phosphorus Magnesium Iron TIBC Direct Bilirubin AST ALT Alkaline Phosphatase Total Creatine Kinase CK-MB (CK-2) C-Reactive Protein Total Protein Albumin Vitamin B12 Salicylates Acetaminophen Miscellaneous Test Crossmatch 03/31/19 03/31/19 03/31/19 21:09 22:15 23:10 WBC RBC Hgb Hct MCV MCH MCHC RDW Plt Count [place] % (Auto) Lymph # Seg Neuts % (Manual) Lymphocytes % (Manual) Nucleated RBC % Seg Neutrophils # Man Lymphocytes # (Manual) Monocytes # (Manual) PT INR APTT D-Dimer POC ABG pH ABG pH POC ABG pCO2 POC ABG pO2 ABG pO2 ABG HCO3 ABG O2 Saturation ABG Base Excess ABG Hemoglobin VBG pH Oxyhemoglobin Sodium Potassium Chloride Carbon Dioxide BUN Creatinine Glucose POC Glucose 136 H 137 H 148 H Lactic Acid Calcium Phosphorus Magnesium Iron TIBC Direct Bilirubin AST ALT Alkaline Phosphatase Total Creatine Kinase CK-MB (CK-2) C-Reactive Protein Total Protein Albumin Vitamin B12 Salicylates Acetaminophen Miscellaneous Test Crossmatch 04/01/19 04/01/19 04/01/19 00:05 01:17 02:11 WBC RBC Hgb Hct MCV MCH MCHC RDW Plt Count [place] % (Auto) Lymph # Seg Neuts % (Manual) Lymphocytes % (Manual) Nucleated RBC % Seg Neutrophils # Man Lymphocytes # (Manual) Monocytes # (Manual) PT INR APTT D-Dimer POC ABG pH ABG pH POC ABG pCO2 POC ABG pO2 ABG pO2 ABG HCO3 ABG O2 Saturation ABG Base Excess ABG Hemoglobin VBG pH Oxyhemoglobin Sodium Potassium Chloride Carbon Dioxide BUN Creatinine Glucose POC Glucose 143 H 151 H 155 H Lactic Acid Calcium Phosphorus Magnesium Iron TIBC Direct Bilirubin AST ALT Alkaline Phosphatase Total Creatine Kinase CK-MB (CK-2) C-Reactive Protein Total Protein Albumin Vitamin B12 Salicylates Acetaminophen Miscellaneous Test Crossmatch 04/01/19 04/01/19 04/01/19 03:12 04:03 04:16 WBC RBC Hgb Hct MCV MCH MCHC RDW Plt Count [place] % (Auto) Lymph # Seg Neuts % (Manual) Lymphocytes % (Manual) Nucleated RBC % Seg Neutrophils # Man Lymphocytes # (Manual) Monocytes # (Manual) PT INR APTT D-Dimer POC ABG pH ABG pH POC ABG pCO2 POC ABG pO2 ABG pO2 ABG HCO3 ABG O2 Saturation ABG Base Excess ABG Hemoglobin VBG pH Oxyhemoglobin Sodium Potassium Chloride Carbon Dioxide BUN Creatinine Glucose POC Glucose 140 H 143 H 142 H Lactic Acid Calcium Phosphorus Magnesium Iron TIBC Direct Bilirubin AST ALT Alkaline Phosphatase Total Creatine Kinase CK-MB (CK-2) C-Reactive Protein Total Protein Albumin Vitamin B12 Salicylates Acetaminophen Miscellaneous Test Crossmatch 04/01/19 04/01/19 04/01/19 05:01 05:01 05:08 WBC RBC 2.05 L Hgb 6.8 L Hct 20.5 L MCV 100 H MCH 33 H MCHC RDW 17.7 H Plt Count 53 L [place] % (Auto) Lymph # Seg Neuts % (Manual) 71.0 H Lymphocytes % (Manual) Nucleated RBC % Seg Neutrophils # Man Lymphocytes # (Manual) Monocytes # (Manual) PT INR APTT D-Dimer POC ABG pH ABG pH POC ABG pCO2 POC ABG pO2 ABG pO2 ABG HCO3 ABG O2 Saturation ABG Base Excess ABG Hemoglobin VBG pH Oxyhemoglobin Sodium Potassium Chloride Carbon Dioxide BUN Creatinine Glucose POC Glucose 119 H Lactic Acid Calcium Phosphorus Magnesium Iron TIBC Direct Bilirubin 0.3 H AST 4601 H ALT 1542 H Alkaline Phosphatase 185 H Total Creatine Kinase CK-MB (CK-2) C-Reactive Protein Total Protein 3.8 L Albumin 1.6 L Vitamin B12 Salicylates Acetaminophen Miscellaneous Test Crossmatch 04/01/19 04/01/19 04/01/19 05:23 06:37 08:15 WBC RBC Hgb Hct MCV MCH MCHC RDW Plt Count [place] % (Auto) Lymph # Seg Neuts % (Manual) Lymphocytes % (Manual) Nucleated RBC % Seg Neutrophils # Man Lymphocytes # (Manual) Monocytes # (Manual) PT INR APTT D-Dimer POC ABG pH ABG pH POC ABG pCO2 POC ABG pO2 ABG pO2 ABG HCO3 ABG O2 Saturation ABG Base Excess ABG Hemoglobin VBG pH Oxyhemoglobin Sodium Potassium Chloride Carbon Dioxide BUN Creatinine Glucose POC Glucose 115 H 124 H 138 H Lactic Acid Calcium Phosphorus Magnesium Iron TIBC Direct Bilirubin AST ALT Alkaline Phosphatase Total Creatine Kinase CK-MB (CK-2) C-Reactive Protein Total Protein Albumin Vitamin B12 Salicylates Acetaminophen Miscellaneous Test Crossmatch 04/01/19 04/01/19 04/01/19 09:50 10:10 10:31 WBC RBC Hgb 6.5 L Hct 19.2 L* MCV MCH MCHC RDW Plt Count [place] % (Auto) Lymph # Seg Neuts % (Manual) Lymphocytes % (Manual) Nucleated RBC % Seg Neutrophils # Man Lymphocytes # (Manual) Monocytes # (Manual) PT INR APTT D-Dimer POC ABG pH ABG pH POC ABG pCO2 POC ABG pO2 ABG pO2 ABG HCO3 ABG O2 Saturation ABG Base Excess ABG Hemoglobin VBG pH Oxyhemoglobin Sodium 149 H Potassium 3.5 L Chloride 119.9 H Carbon Dioxide 21 L BUN 33 H Creatinine 0.5 L Glucose 142 H POC Glucose 185 H Lactic Acid Calcium 7.3 L Phosphorus Magnesium Iron TIBC Direct Bilirubin AST 3686 H ALT 1440 H Alkaline Phosphatase 185 H Total Creatine Kinase CK-MB (CK-2) C-Reactive Protein Total Protein 3.7 L Albumin 1.8 L Vitamin B12 Salicylates Acetaminophen Miscellaneous Test Crossmatch 04/01/19 04/01/19 04/01/19 11:35 13:05 14:35 WBC RBC Hgb Hct MCV MCH MCHC RDW Plt Count [place] % (Auto) Lymph # Seg Neuts % (Manual) Lymphocytes % (Manual) Nucleated RBC % Seg Neutrophils # Man Lymphocytes # (Manual) Monocytes # (Manual) PT INR APTT D-Dimer POC ABG pH ABG pH POC ABG pCO2 POC ABG pO2 ABG pO2 ABG HCO3 ABG O2 Saturation ABG Base Excess ABG Hemoglobin VBG pH Oxyhemoglobin Sodium Potassium Chloride Carbon Dioxide BUN Creatinine Glucose POC Glucose 201 H 169 H 134 H Lactic Acid Calcium Phosphorus Magnesium Iron TIBC Direct Bilirubin AST ALT Alkaline Phosphatase Total Creatine Kinase CK-MB (CK-2) C-Reactive Protein Total Protein Albumin Vitamin B12 Salicylates Acetaminophen Miscellaneous Test Crossmatch 04/01/19 04/01/19 04/01/19 17:13 17:14 18:30 WBC RBC Hgb Hct MCV MCH MCHC RDW Plt Count [place] % (Auto) Lymph # Seg Neuts % (Manual) Lymphocytes % (Manual) Nucleated RBC % Seg Neutrophils # Man Lymphocytes # (Manual) Monocytes # (Manual) PT INR APTT D-Dimer 5203.68 H POC ABG pH ABG pH POC ABG pCO2 POC ABG pO2 ABG pO2 ABG HCO3 ABG O2 Saturation ABG Base Excess ABG Hemoglobin VBG pH Oxyhemoglobin Sodium Potassium Chloride Carbon Dioxide BUN Creatinine Glucose POC Glucose 69 L 128 H Lactic Acid Calcium Phosphorus Magnesium Iron TIBC Direct Bilirubin AST ALT Alkaline Phosphatase Total Creatine Kinase CK-MB (CK-2) C-Reactive Protein Total Protein Albumin Vitamin B12 Salicylates Acetaminophen Miscellaneous Test Crossmatch 04/01/19 04/01/19 04/02/19 22:50 Unknown 03:40 WBC RBC Hgb Hct MCV MCH MCHC RDW Plt Count [place] % (Auto) Lymph # Seg Neuts % (Manual) Lymphocytes % (Manual) Nucleated RBC % Seg Neutrophils # Man Lymphocytes # (Manual) Monocytes # (Manual) PT INR APTT D-Dimer POC ABG pH ABG pH POC ABG pCO2 POC ABG pO2 ABG pO2 78.3 L 142.8 H ABG HCO3 15.5 L ABG O2 Saturation ABG Base Excess -3.5 L -8.2 L ABG Hemoglobin 6.8 L 8.2 L VBG pH Oxyhemoglobin 94.3 L Sodium Potassium Chloride Carbon Dioxide BUN Creatinine Glucose POC Glucose 342 H Lactic Acid Calcium Phosphorus Magnesium Iron TIBC Direct Bilirubin AST ALT Alkaline Phosphatase Total Creatine Kinase CK-MB (CK-2) C-Reactive Protein Total Protein Albumin Vitamin B12 Salicylates Acetaminophen Miscellaneous Test Crossmatch 04/02/19 04/02/19 04/02/19 03:49 06:50 07:48 WBC RBC 2.65 L Hgb 8.6 L Hct 25.1 L MCV MCH MCHC RDW 17.6 H Plt Count 48 L [place] % (Auto) Lymph # Seg Neuts % (Manual) Lymphocytes % (Manual) Nucleated RBC % Seg Neutrophils # Man Lymphocytes # (Manual) Monocytes # (Manual) PT INR APTT D-Dimer POC ABG pH ABG pH POC ABG pCO2 POC ABG pO2 ABG pO2 ABG HCO3 ABG O2 Saturation ABG Base Excess ABG Hemoglobin VBG pH Oxyhemoglobin Sodium Potassium Chloride Carbon Dioxide BUN Creatinine Glucose POC Glucose 247 H 200 H Lactic Acid Calcium Phosphorus Magnesium Iron TIBC Direct Bilirubin AST ALT Alkaline Phosphatase Total Creatine Kinase CK-MB (CK-2) C-Reactive Protein Total Protein Albumin Vitamin B12 Salicylates Acetaminophen Miscellaneous Test Crossmatch 04/02/19 04/02/19 04/02/19 07:48 11:18 14:07 WBC RBC Hgb Hct MCV MCH MCHC RDW Plt Count [place] % (Auto) Lymph # Seg Neuts % (Manual) Lymphocytes % (Manual) Nucleated RBC % Seg Neutrophils # Man Lymphocytes # (Manual) Monocytes # (Manual) PT INR APTT D-Dimer POC ABG pH ABG pH POC ABG pCO2 POC ABG pO2 ABG pO2 ABG HCO3 ABG O2 Saturation ABG Base Excess ABG Hemoglobin VBG pH Oxyhemoglobin Sodium Potassium 3.5 L Chloride 115.7 H Carbon Dioxide 19 L BUN 29 H Creatinine 0.5 L Glucose 159 H POC Glucose 154 H 149 H Lactic Acid Calcium 7.5 L Phosphorus Magnesium Iron TIBC Direct Bilirubin AST 1418 H ALT 1134 H Alkaline Phosphatase 242 H Total Creatine Kinase CK-MB (CK-2) C-Reactive Protein Total Protein 4.2 L Albumin 2.1 L Vitamin B12 Salicylates Acetaminophen Miscellaneous Test Crossmatch 04/02/19 04/02/19 04/02/19 18:09 19:46 23:05 WBC RBC Hgb Hct MCV MCH MCHC RDW Plt Count [place] % (Auto) Lymph # Seg Neuts % (Manual) Lymphocytes % (Manual) Nucleated RBC % Seg Neutrophils # Man Lymphocytes # (Manual) Monocytes # (Manual) PT INR APTT D-Dimer POC ABG pH ABG pH POC ABG pCO2 POC ABG pO2 ABG pO2 ABG HCO3 ABG O2 Saturation ABG Base Excess ABG Hemoglobin VBG pH Oxyhemoglobin Sodium Potassium Chloride Carbon Dioxide BUN Creatinine Glucose POC Glucose 188 H 209 H 247 H Lactic Acid Calcium Phosphorus Magnesium Iron TIBC Direct Bilirubin AST ALT Alkaline Phosphatase Total Creatine Kinase CK-MB (CK-2) C-Reactive Protein Total Protein Albumin Vitamin B12 Salicylates Acetaminophen Miscellaneous Test Crossmatch 04/03/19 04/03/19 04/03/19 02:58 03:40 03:40 WBC RBC 2.87 L Hgb 9.3 L Hct 27.0 L MCV MCH MCHC RDW 17.2 H Plt Count 65 L [place] % (Auto) 9.8 H Lymph # 1.1 L Seg Neuts % (Manual) Lymphocytes % (Manual) Nucleated RBC % Seg Neutrophils # Man Lymphocytes # (Manual) Monocytes # (Manual) PT INR APTT D-Dimer POC ABG pH ABG pH POC ABG pCO2 POC ABG pO2 ABG pO2 ABG HCO3 ABG O2 Saturation ABG Base Excess ABG Hemoglobin VBG pH Oxyhemoglobin Sodium 147 H Potassium 3.5 L Chloride 116.7 H Carbon Dioxide 18 L BUN Creatinine 0.4 L Glucose 150 H POC Glucose 166 H Lactic Acid Calcium 8.1 L Phosphorus 2.20 L Magnesium Iron TIBC Direct Bilirubin AST 594 H ALT 861 H Alkaline Phosphatase 299 H Total Creatine Kinase CK-MB (CK-2) C-Reactive Protein Total Protein 4.4 L Albumin 2.1 L Vitamin B12 Salicylates Acetaminophen Miscellaneous Test Crossmatch 04/03/19 04/03/19 04/03/19 05:35 07:02 08:23 WBC RBC Hgb Hct MCV MCH MCHC RDW Plt Count [place] % (Auto) Lymph # Seg Neuts % (Manual) Lymphocytes % (Manual) Nucleated RBC % Seg Neutrophils # Man Lymphocytes # (Manual) Monocytes # (Manual) PT INR APTT D-Dimer POC ABG pH ABG pH POC ABG pCO2 POC ABG pO2 ABG pO2 97.7 H ABG HCO3 19.3 L ABG O2 Saturation ABG Base Excess -5.0 L ABG Hemoglobin 8.0 L VBG pH Oxyhemoglobin Sodium Potassium Chloride Carbon Dioxide BUN Creatinine Glucose POC Glucose 135 H 132 H Lactic Acid Calcium Phosphorus Magnesium Iron TIBC Direct Bilirubin AST ALT Alkaline Phosphatase Total Creatine Kinase CK-MB (CK-2) C-Reactive Protein Total Protein Albumin Vitamin B12 Salicylates Acetaminophen Miscellaneous Test Crossmatch 04/03/19 04/03/19 04/03/19 11:58 15:11 17:53 WBC RBC Hgb Hct MCV MCH MCHC RDW Plt Count [place] % (Auto) Lymph # Seg Neuts % (Manual) Lymphocytes % (Manual) Nucleated RBC % Seg Neutrophils # Man Lymphocytes # (Manual) Monocytes # (Manual) PT INR APTT D-Dimer POC ABG pH ABG pH POC ABG pCO2 POC ABG pO2 ABG pO2 ABG HCO3 ABG O2 Saturation ABG Base Excess ABG Hemoglobin VBG pH Oxyhemoglobin Sodium Potassium Chloride Carbon Dioxide BUN Creatinine Glucose POC Glucose 179 H 213 H 223 H Lactic Acid Calcium Phosphorus Magnesium Iron TIBC Direct Bilirubin AST ALT Alkaline Phosphatase Total Creatine Kinase CK-MB (CK-2) C-Reactive Protein Total Protein Albumin Vitamin B12 Salicylates Acetaminophen Miscellaneous Test Crossmatch 04/03/19 04/04/19 04/04/19 23:06 02:36 06:41 WBC RBC Hgb Hct MCV MCH MCHC RDW Plt Count [place] % (Auto) Lymph # Seg Neuts % (Manual) Lymphocytes % (Manual) Nucleated RBC % Seg Neutrophils # Man Lymphocytes # (Manual) Monocytes # (Manual) PT INR APTT D-Dimer POC ABG pH ABG pH POC ABG pCO2 POC ABG pO2 ABG pO2 ABG HCO3 ABG O2 Saturation ABG Base Excess ABG Hemoglobin VBG pH Oxyhemoglobin Sodium Potassium Chloride Carbon Dioxide BUN Creatinine Glucose POC Glucose 189 H 157 H 131 H Lactic Acid Calcium Phosphorus Magnesium Iron TIBC Direct Bilirubin AST ALT Alkaline Phosphatase Total Creatine Kinase CK-MB (CK-2) C-Reactive Protein Total Protein Albumin Vitamin B12 Salicylates Acetaminophen Miscellaneous Test Crossmatch 04/04/19 04/04/19 04/04/19 11:42 15:45 18:21 WBC RBC Hgb Hct MCV MCH MCHC RDW Plt Count [place] % (Auto) Lymph # Seg Neuts % (Manual) Lymphocytes % (Manual) Nucleated RBC % Seg Neutrophils # Man Lymphocytes # (Manual) Monocytes # (Manual) PT INR APTT D-Dimer POC ABG pH ABG pH POC ABG pCO2 POC ABG pO2 ABG pO2 ABG HCO3 ABG O2 Saturation ABG Base Excess ABG Hemoglobin VBG pH Oxyhemoglobin Sodium Potassium Chloride Carbon Dioxide BUN Creatinine Glucose POC Glucose 233 H 236 H 255 H Lactic Acid Calcium Phosphorus Magnesium Iron TIBC Direct Bilirubin AST ALT Alkaline Phosphatase Total Creatine Kinase CK-MB (CK-2) C-Reactive Protein Total Protein Albumin Vitamin B12 Salicylates Acetaminophen Miscellaneous Test Crossmatch 04/04/19 04/05/19 04/05/19 21:21 03:06 06:05 WBC RBC 2.68 L Hgb 8.5 L Hct 26.3 L MCV 98 H MCH MCHC RDW 17.4 H Plt Count [place] % (Auto) Lymph # Seg Neuts % (Manual) Lymphocytes % (Manual) Nucleated RBC % Seg Neutrophils # Man Lymphocytes # (Manual) Monocytes # (Manual) PT INR APTT D-Dimer POC ABG pH ABG pH POC ABG pCO2 POC ABG pO2 ABG pO2 ABG HCO3 ABG O2 Saturation ABG Base Excess ABG Hemoglobin VBG pH Oxyhemoglobin Sodium Potassium Chloride Carbon Dioxide BUN Creatinine Glucose POC Glucose 132 H 161 H Lactic Acid Calcium Phosphorus Magnesium Iron TIBC Direct Bilirubin AST ALT Alkaline Phosphatase Total Creatine Kinase CK-MB (CK-2) C-Reactive Protein Total Protein Albumin Vitamin B12 Salicylates Acetaminophen Miscellaneous Test Crossmatch 04/05/19 04/05/19 04/05/19 06:05 06:49 10:23 WBC RBC Hgb Hct MCV MCH MCHC RDW Plt Count [place] % (Auto) Lymph # Seg Neuts % (Manual) Lymphocytes % (Manual) Nucleated RBC % Seg Neutrophils # Man Lymphocytes # (Manual) Monocytes # (Manual) PT INR APTT D-Dimer POC ABG pH ABG pH POC ABG pCO2 POC ABG pO2 ABG pO2 ABG HCO3 ABG O2 Saturation ABG Base Excess ABG Hemoglobin VBG pH Oxyhemoglobin Sodium Potassium Chloride 112.5 H Carbon Dioxide BUN Creatinine 0.2 L Glucose 237 H POC Glucose 283 H 296 H Lactic Acid Calcium 7.9 L Phosphorus Magnesium Iron TIBC Direct Bilirubin AST ALT Alkaline Phosphatase Total Creatine Kinase CK-MB (CK-2) C-Reactive Protein Total Protein Albumin Vitamin B12 Salicylates Acetaminophen Miscellaneous Test Crossmatch 04/05/19 04/05/19 04/05/19 14:46 18:19 20:35 WBC RBC Hgb Hct MCV MCH MCHC RDW Plt Count [place] % (Auto) Lymph # Seg Neuts % (Manual) Lymphocytes % (Manual) Nucleated RBC % Seg Neutrophils # Man Lymphocytes # (Manual) Monocytes # (Manual) PT INR APTT D-Dimer POC ABG pH ABG pH POC ABG pCO2 POC ABG pO2 ABG pO2 ABG HCO3 ABG O2 Saturation ABG Base Excess ABG Hemoglobin VBG pH Oxyhemoglobin Sodium Potassium Chloride Carbon Dioxide BUN Creatinine Glucose POC Glucose 225 H 259 H 236 H Lactic Acid Calcium Phosphorus Magnesium Iron TIBC Direct Bilirubin AST ALT Alkaline Phosphatase Total Creatine Kinase CK-MB (CK-2) C-Reactive Protein Total Protein Albumin Vitamin B12 Salicylates Acetaminophen Miscellaneous Test Crossmatch 04/05/19 04/06/19 04/06/19 23:11 00:06 03:14 WBC RBC Hgb Hct MCV MCH MCHC RDW Plt Count [place] % (Auto) Lymph # Seg Neuts % (Manual) Lymphocytes % (Manual) Nucleated RBC % Seg Neutrophils # Man Lymphocytes # (Manual) Monocytes # (Manual) PT INR APTT D-Dimer 4526.86 H POC ABG pH ABG pH POC ABG pCO2 POC ABG pO2 ABG pO2 ABG HCO3 ABG O2 Saturation ABG Base Excess ABG Hemoglobin VBG pH Oxyhemoglobin Sodium Potassium Chloride Carbon Dioxide BUN Creatinine Glucose POC Glucose 205 H 228 H Lactic Acid Calcium Phosphorus Magnesium Iron TIBC Direct Bilirubin AST ALT Alkaline Phosphatase Total Creatine Kinase CK-MB (CK-2) C-Reactive Protein Total Protein Albumin Vitamin B12 Salicylates Acetaminophen Miscellaneous Test Crossmatch 04/06/19 04/06/19 04/06/19 05:20 05:20 07:57 WBC 15.1 H RBC 2.90 L Hgb 9.1 L Hct 28.0 L MCV MCH MCHC RDW 17.3 H Plt Count [place] % (Auto) Lymph # Seg Neuts % (Manual) Lymphocytes % (Manual) Nucleated RBC % Seg Neutrophils # Man Lymphocytes # (Manual) Monocytes # (Manual) PT INR APTT D-Dimer POC ABG pH ABG pH POC ABG pCO2 POC ABG pO2 ABG pO2 ABG HCO3 ABG O2 Saturation ABG Base Excess ABG Hemoglobin VBG pH Oxyhemoglobin Sodium Potassium Chloride Carbon Dioxide BUN Creatinine 0.2 L Glucose 161 H POC Glucose 191 H Lactic Acid Calcium 8.0 L Phosphorus Magnesium Iron TIBC Direct Bilirubin AST ALT Alkaline Phosphatase Total Creatine Kinase CK-MB (CK-2) C-Reactive Protein Total Protein Albumin Vitamin B12 Salicylates Acetaminophen Miscellaneous Test Crossmatch 04/06/19 04/06/19 04/06/19 12:09 18:24 22:07 WBC RBC Hgb Hct MCV MCH MCHC RDW Plt Count [place] % (Auto) Lymph # Seg Neuts % (Manual) Lymphocytes % (Manual) Nucleated RBC % Seg Neutrophils # Man Lymphocytes # (Manual) Monocytes # (Manual) PT INR APTT D-Dimer POC ABG pH ABG pH POC ABG pCO2 POC ABG pO2 ABG pO2 ABG HCO3 ABG O2 Saturation ABG Base Excess ABG Hemoglobin VBG pH Oxyhemoglobin Sodium Potassium Chloride Carbon Dioxide BUN Creatinine Glucose POC Glucose 143 H 161 H 140 H Lactic Acid Calcium Phosphorus Magnesium Iron TIBC Direct Bilirubin AST ALT Alkaline Phosphatase Total Creatine Kinase CK-MB (CK-2) C-Reactive Protein Total Protein Albumin Vitamin B12 Salicylates Acetaminophen Miscellaneous Test Crossmatch 04/07/19 04/07/19 04/07/19 03:00 04:30 04:30 WBC 13.0 H RBC 2.65 L Hgb 8.3 L Hct 25.5 L MCV MCH MCHC RDW 17.0 H Plt Count [place] % (Auto) Lymph # Seg Neuts % (Manual) Lymphocytes % (Manual) Nucleated RBC % Seg Neutrophils # Man Lymphocytes # (Manual) Monocytes # (Manual) PT INR APTT D-Dimer POC ABG pH ABG pH POC ABG pCO2 POC ABG pO2 ABG pO2 ABG HCO3 ABG O2 Saturation ABG Base Excess ABG Hemoglobin VBG pH Oxyhemoglobin Sodium Potassium Chloride Carbon Dioxide BUN Creatinine 0.2 L Glucose 208 H POC Glucose 224 H Lactic Acid Calcium 7.7 L Phosphorus Magnesium Iron TIBC Direct Bilirubin AST ALT Alkaline Phosphatase Total Creatine Kinase CK-MB (CK-2) C-Reactive Protein Total Protein Albumin Vitamin B12 Salicylates Acetaminophen Miscellaneous Test Crossmatch 04/07/19 04/07/19 04/07/19 05:47 08:27 10:33 WBC RBC Hgb Hct MCV MCH MCHC RDW Plt Count [place] % (Auto) Lymph # Seg Neuts % (Manual) Lymphocytes % (Manual) Nucleated RBC % Seg Neutrophils # Man Lymphocytes # (Manual) Monocytes # (Manual) PT INR APTT D-Dimer POC ABG pH ABG pH POC ABG pCO2 POC ABG pO2 ABG pO2 ABG HCO3 ABG O2 Saturation ABG Base Excess ABG Hemoglobin VBG pH Oxyhemoglobin Sodium Potassium Chloride Carbon Dioxide BUN Creatinine Glucose POC Glucose 225 H 176 H 207 H Lactic Acid Calcium Phosphorus Magnesium Iron TIBC Direct Bilirubin AST ALT Alkaline Phosphatase Total Creatine Kinase CK-MB (CK-2) C-Reactive Protein Total Protein Albumin Vitamin B12 Salicylates Acetaminophen Miscellaneous Test Crossmatch 04/07/19 04/07/19 04/07/19 14:13 18:32 22:42 WBC RBC Hgb Hct MCV MCH MCHC RDW Plt Count [place] % (Auto) Lymph # Seg Neuts % (Manual) Lymphocytes % (Manual) Nucleated RBC % Seg Neutrophils # Man Lymphocytes # (Manual) Monocytes # (Manual) PT INR APTT D-Dimer POC ABG pH ABG pH POC ABG pCO2 POC ABG pO2 ABG pO2 ABG HCO3 ABG O2 Saturation ABG Base Excess ABG Hemoglobin VBG pH Oxyhemoglobin Sodium Potassium Chloride Carbon Dioxide BUN Creatinine Glucose POC Glucose 219 H 227 H 238 H Lactic Acid Calcium Phosphorus Magnesium Iron TIBC Direct Bilirubin AST ALT Alkaline Phosphatase Total Creatine Kinase CK-MB (CK-2) C-Reactive Protein Total Protein Albumin Vitamin B12 Salicylates Acetaminophen Miscellaneous Test Crossmatch 04/08/19 04/08/19 04/08/19 02:31 05:37 14:10 WBC RBC Hgb Hct MCV MCH MCHC RDW Plt Count [place] % (Auto) Lymph # Seg Neuts % (Manual) Lymphocytes % (Manual) Nucleated RBC % Seg Neutrophils # Man Lymphocytes # (Manual) Monocytes # (Manual) PT INR APTT D-Dimer POC ABG pH ABG pH POC ABG pCO2 POC ABG pO2 ABG pO2 ABG HCO3 ABG O2 Saturation ABG Base Excess ABG Hemoglobin VBG pH Oxyhemoglobin Sodium Potassium Chloride Carbon Dioxide BUN Creatinine Glucose POC Glucose 194 H 194 H 139 H Lactic Acid Calcium Phosphorus Magnesium Iron TIBC Direct Bilirubin AST ALT Alkaline Phosphatase Total Creatine Kinase CK-MB (CK-2) C-Reactive Protein Total Protein Albumin Vitamin B12 Salicylates Acetaminophen Miscellaneous Test Crossmatch 04/08/19 04/08/19 04/09/19 17:43 23:20 03:28 WBC RBC Hgb Hct MCV MCH MCHC RDW Plt Count [place] % (Auto) Lymph # Seg Neuts % (Manual) Lymphocytes % (Manual) Nucleated RBC % Seg Neutrophils # Man Lymphocytes # (Manual) Monocytes # (Manual) PT INR APTT D-Dimer POC ABG pH ABG pH POC ABG pCO2 POC ABG pO2 ABG pO2 ABG HCO3 ABG O2 Saturation ABG Base Excess ABG Hemoglobin VBG pH Oxyhemoglobin Sodium Potassium Chloride Carbon Dioxide BUN Creatinine Glucose POC Glucose 261 H 277 H 301 H Lactic Acid Calcium Phosphorus Magnesium Iron TIBC Direct Bilirubin AST ALT Alkaline Phosphatase Total Creatine Kinase CK-MB (CK-2) C-Reactive Protein Total Protein Albumin Vitamin B12 Salicylates Acetaminophen Miscellaneous Test Crossmatch 04/09/19 04/09/19 04/09/19 05:35 05:35 05:35 WBC RBC 2.78 L Hgb 9.0 L Hct 26.7 L MCV MCH MCHC RDW 17.0 H Plt Count [place] % (Auto) Lymph # Seg Neuts % (Manual) Lymphocytes % (Manual) Nucleated RBC % Seg Neutrophils # Man Lymphocytes # (Manual) Monocytes # (Manual) PT INR APTT D-Dimer POC ABG pH ABG pH POC ABG pCO2 POC ABG pO2 ABG pO2 ABG HCO3 ABG O2 Saturation ABG Base Excess ABG Hemoglobin VBG pH Oxyhemoglobin Sodium Potassium Chloride Carbon Dioxide 31 H BUN Creatinine 0.2 L Glucose 218 H POC Glucose 240 H Lactic Acid Calcium Phosphorus Magnesium Iron TIBC Direct Bilirubin AST ALT Alkaline Phosphatase Total Creatine Kinase CK-MB (CK-2) C-Reactive Protein Total Protein Albumin Vitamin B12 Salicylates Acetaminophen Miscellaneous Test Crossmatch 04/09/19 04/09/19 04/09/19 09:01 12:23 17:33 WBC RBC Hgb Hct MCV MCH MCHC RDW Plt Count [place] % (Auto) Lymph # Seg Neuts % (Manual) Lymphocytes % (Manual) Nucleated RBC % Seg Neutrophils # Man Lymphocytes # (Manual) Monocytes # (Manual) PT INR APTT D-Dimer POC ABG pH ABG pH POC ABG pCO2 POC ABG pO2 ABG pO2 ABG HCO3 ABG O2 Saturation ABG Base Excess ABG Hemoglobin VBG pH Oxyhemoglobin Sodium Potassium Chloride Carbon Dioxide BUN Creatinine Glucose POC Glucose 160 H 162 H 149 H Lactic Acid Calcium Phosphorus Magnesium Iron TIBC Direct Bilirubin AST ALT Alkaline Phosphatase Total Creatine Kinase CK-MB (CK-2) C-Reactive Protein Total Protein Albumin Vitamin B12 Salicylates Acetaminophen Miscellaneous Test Crossmatch 04/09/19 04/09/19 04/10/19 21:26 22:28 03:16 WBC RBC Hgb Hct MCV MCH MCHC RDW Plt Count [place] % (Auto) Lymph # Seg Neuts % (Manual) Lymphocytes % (Manual) Nucleated RBC % Seg Neutrophils # Man Lymphocytes # (Manual) Monocytes # (Manual) PT INR APTT D-Dimer POC ABG pH ABG pH POC ABG pCO2 POC ABG pO2 ABG pO2 ABG HCO3 ABG O2 Saturation ABG Base Excess ABG Hemoglobin VBG pH Oxyhemoglobin Sodium Potassium Chloride Carbon Dioxide BUN Creatinine Glucose POC Glucose 196 H 224 H 163 H Lactic Acid Calcium Phosphorus Magnesium Iron TIBC Direct Bilirubin AST ALT Alkaline Phosphatase Total Creatine Kinase CK-MB (CK-2) C-Reactive Protein Total Protein Albumin Vitamin B12 Salicylates Acetaminophen Miscellaneous Test Crossmatch 04/10/19 04/10/19 04/10/19 04:15 04:15 05:30 WBC RBC 2.88 L Hgb 9.2 L Hct 27.9 L MCV MCH MCHC RDW 17.0 H Plt Count 454 H [place] % (Auto) Lymph # Seg Neuts % (Manual) Lymphocytes % (Manual) Nucleated RBC % Seg Neutrophils # Man Lymphocytes # (Manual) Monocytes # (Manual) PT INR APTT D-Dimer POC ABG pH ABG pH POC ABG pCO2 POC ABG pO2 ABG pO2 ABG HCO3 ABG O2 Saturation ABG Base Excess ABG Hemoglobin VBG pH Oxyhemoglobin Sodium Potassium Chloride Carbon Dioxide 32 H BUN Creatinine 0.2 L Glucose 126 H POC Glucose 135 H Lactic Acid Calcium Phosphorus Magnesium Iron TIBC Direct Bilirubin AST ALT Alkaline Phosphatase Total Creatine Kinase CK-MB (CK-2) C-Reactive Protein Total Protein Albumin Vitamin B12 Salicylates Acetaminophen Miscellaneous Test Crossmatch 04/10/19 04/10/19 04/10/19 12:14 15:29 23:38 WBC RBC Hgb Hct MCV MCH MCHC RDW Plt Count [place] % (Auto) Lymph # Seg Neuts % (Manual) Lymphocytes % (Manual) Nucleated RBC % Seg Neutrophils # Man Lymphocytes # (Manual) Monocytes # (Manual) PT INR APTT D-Dimer POC ABG pH ABG pH POC ABG pCO2 POC ABG pO2 ABG pO2 ABG HCO3 ABG O2 Saturation ABG Base Excess ABG Hemoglobin VBG pH Oxyhemoglobin Sodium Potassium Chloride Carbon Dioxide BUN Creatinine Glucose POC Glucose 109 H 149 H 268 H Lactic Acid Calcium Phosphorus Magnesium Iron TIBC Direct Bilirubin AST ALT Alkaline Phosphatase Total Creatine Kinase CK-MB (CK-2) C-Reactive Protein Total Protein Albumin Vitamin B12 Salicylates Acetaminophen Miscellaneous Test Crossmatch 04/11/19 04/11/19 04/11/19 05:27 12:08 18:08 WBC RBC Hgb Hct MCV MCH MCHC RDW Plt Count [place] % (Auto) Lymph # Seg Neuts % (Manual) Lymphocytes % (Manual) Nucleated RBC % Seg Neutrophils # Man Lymphocytes # (Manual) Monocytes # (Manual) PT INR APTT D-Dimer POC ABG pH ABG pH POC ABG pCO2 POC ABG pO2 ABG pO2 ABG HCO3 ABG O2 Saturation ABG Base Excess ABG Hemoglobin VBG pH Oxyhemoglobin Sodium Potassium Chloride Carbon Dioxide BUN Creatinine Glucose POC Glucose 109 H 185 H 190 H Lactic Acid Calcium Phosphorus Magnesium Iron TIBC Direct Bilirubin AST ALT Alkaline Phosphatase Total Creatine Kinase CK-MB (CK-2) C-Reactive Protein Total Protein Albumin Vitamin B12 Salicylates Acetaminophen Miscellaneous Test Crossmatch 04/11/19 04/12/19 04/12/19 23:23 06:00 11:42 WBC RBC Hgb Hct MCV MCH MCHC RDW Plt Count [place] % (Auto) Lymph # Seg Neuts % (Manual) Lymphocytes % (Manual) Nucleated RBC % Seg Neutrophils # Man Lymphocytes # (Manual) Monocytes # (Manual) PT INR APTT D-Dimer POC ABG pH ABG pH POC ABG pCO2 POC ABG pO2 ABG pO2 ABG HCO3 ABG O2 Saturation ABG Base Excess ABG Hemoglobin VBG pH Oxyhemoglobin Sodium Potassium Chloride Carbon Dioxide BUN Creatinine Glucose POC Glucose 127 H 201 H 161 H Lactic Acid Calcium Phosphorus Magnesium Iron TIBC Direct Bilirubin AST ALT Alkaline Phosphatase Total Creatine Kinase CK-MB (CK-2) C-Reactive Protein Total Protein Albumin Vitamin B12 Salicylates Acetaminophen Miscellaneous Test Crossmatch 04/12/19 04/12/19 04/12/19 17:56 20:07 21:59 WBC RBC Hgb Hct MCV MCH MCHC RDW Plt Count [place] % (Auto) Lymph # Seg Neuts % (Manual) Lymphocytes % (Manual) Nucleated RBC % Seg Neutrophils # Man Lymphocytes # (Manual) Monocytes # (Manual) PT INR APTT D-Dimer POC ABG pH ABG pH POC ABG pCO2 POC ABG pO2 ABG pO2 ABG HCO3 ABG O2 Saturation ABG Base Excess ABG Hemoglobin VBG pH Oxyhemoglobin Sodium Potassium Chloride Carbon Dioxide BUN Creatinine Glucose POC Glucose 145 H 158 H 203 H Lactic Acid Calcium Phosphorus Magnesium Iron TIBC Direct Bilirubin AST ALT Alkaline Phosphatase Total Creatine Kinase CK-MB (CK-2) C-Reactive Protein Total Protein Albumin Vitamin B12 Salicylates Acetaminophen Miscellaneous Test Crossmatch 04/12/19 04/13/19 04/13/19 23:37 08:50 08:50 WBC 15.7 H RBC 3.12 L Hgb Hct 30.2 L MCV MCH 33 H MCHC RDW 18.0 H Plt Count 678 H [place] % (Auto) Lymph # Seg Neuts % (Manual) Lymphocytes % (Manual) Nucleated RBC % Seg Neutrophils # Man Lymphocytes # (Manual) Monocytes # (Manual) PT INR APTT D-Dimer POC ABG pH ABG pH POC ABG pCO2 POC ABG pO2 ABG pO2 ABG HCO3 ABG O2 Saturation ABG Base Excess ABG Hemoglobin VBG pH Oxyhemoglobin Sodium Potassium Chloride Carbon Dioxide BUN Creatinine < 0.2 L Glucose 46 L POC Glucose 238 H Lactic Acid Calcium Phosphorus Magnesium Iron TIBC Direct Bilirubin AST ALT Alkaline Phosphatase Total Creatine Kinase CK-MB (CK-2) C-Reactive Protein Total Protein Albumin Vitamin B12 Salicylates Acetaminophen Miscellaneous Test Crossmatch 04/13/19 04/13/19 04/13/19 11:56 17:27 23:57 WBC RBC Hgb Hct MCV MCH MCHC RDW Plt Count [place] % (Auto) Lymph # Seg Neuts % (Manual) Lymphocytes % (Manual) Nucleated RBC % Seg Neutrophils # Man Lymphocytes # (Manual) Monocytes # (Manual) PT INR APTT D-Dimer POC ABG pH ABG pH POC ABG pCO2 POC ABG pO2 ABG pO2 ABG HCO3 ABG O2 Saturation ABG Base Excess ABG Hemoglobin VBG pH Oxyhemoglobin Sodium Potassium Chloride Carbon Dioxide BUN Creatinine Glucose POC Glucose 40 L 66 L 65 L Lactic Acid Calcium Phosphorus Magnesium Iron TIBC Direct Bilirubin AST ALT Alkaline Phosphatase Total Creatine Kinase CK-MB (CK-2) C-Reactive Protein Total Protein Albumin Vitamin B12 Salicylates Acetaminophen Miscellaneous Test Crossmatch 04/14/19 04/14/19 04/14/19 05:28 08:20 08:20 WBC 17.8 H RBC 3.26 L Hgb Hct MCV 98 H MCH MCHC RDW 18.3 H Plt Count 622 H [place] % (Auto) Lymph # Seg Neuts % (Manual) Lymphocytes % (Manual) Nucleated RBC % Seg Neutrophils # Man Lymphocytes # (Manual) Monocytes # (Manual) PT INR APTT D-Dimer POC ABG pH ABG pH POC ABG pCO2 POC ABG pO2 ABG pO2 ABG HCO3 ABG O2 Saturation ABG Base Excess ABG Hemoglobin VBG pH Oxyhemoglobin Sodium Potassium Chloride Carbon Dioxide BUN 6 L Creatinine < 0.2 L Glucose 154 H POC Glucose 149 H Lactic Acid Calcium Phosphorus Magnesium Iron TIBC Direct Bilirubin AST ALT Alkaline Phosphatase Total Creatine Kinase CK-MB (CK-2) C-Reactive Protein Total Protein Albumin Vitamin B12 Salicylates Acetaminophen Miscellaneous Test Crossmatch 04/14/19 04/14/19 04/14/19 12:16 17:54 23:35 WBC RBC Hgb Hct MCV MCH MCHC RDW Plt Count [place] % (Auto) Lymph # Seg Neuts % (Manual) Lymphocytes % (Manual) Nucleated RBC % Seg Neutrophils # Man Lymphocytes # (Manual) Monocytes # (Manual) PT INR APTT D-Dimer POC ABG pH ABG pH POC ABG pCO2 POC ABG pO2 ABG pO2 ABG HCO3 ABG O2 Saturation ABG Base Excess ABG Hemoglobin VBG pH Oxyhemoglobin Sodium Potassium Chloride Carbon Dioxide BUN Creatinine Glucose POC Glucose 176 H 224 H 173 H Lactic Acid Calcium Phosphorus Magnesium Iron TIBC Direct Bilirubin AST ALT Alkaline Phosphatase Total Creatine Kinase CK-MB (CK-2) C-Reactive Protein Total Protein Albumin Vitamin B12 Salicylates Acetaminophen Miscellaneous Test Crossmatch 04/15/19 04/15/19 04/15/19 05:44 12:44 18:06 WBC RBC Hgb Hct MCV MCH MCHC RDW Plt Count [place] % (Auto) Lymph # Seg Neuts % (Manual) Lymphocytes % (Manual) Nucleated RBC % Seg Neutrophils # Man Lymphocytes # (Manual) Monocytes # (Manual) PT INR APTT D-Dimer POC ABG pH 7.461 H ABG pH POC ABG pCO2 45.5 H POC ABG pO2 ABG pO2 ABG HCO3 ABG O2 Saturation ABG Base Excess ABG Hemoglobin VBG pH Oxyhemoglobin Sodium Potassium Chloride Carbon Dioxide BUN Creatinine Glucose POC Glucose 255 H 365 H Lactic Acid Calcium Phosphorus Magnesium Iron TIBC Direct Bilirubin AST ALT Alkaline Phosphatase Total Creatine Kinase CK-MB (CK-2) C-Reactive Protein Total Protein Albumin Vitamin B12 Salicylates Acetaminophen Miscellaneous Test Crossmatch 04/15/19 04/15/19 04/16/19 18:06 23:34 00:40 WBC RBC Hgb Hct MCV MCH MCHC RDW Plt Count [place] % (Auto) Lymph # Seg Neuts % (Manual) Lymphocytes % (Manual) Nucleated RBC % Seg Neutrophils # Man Lymphocytes # (Manual) Monocytes # (Manual) PT INR APTT D-Dimer POC ABG pH ABG pH POC ABG pCO2 POC ABG pO2 ABG pO2 ABG HCO3 ABG O2 Saturation ABG Base Excess ABG Hemoglobin VBG pH Oxyhemoglobin Sodium Potassium Chloride Carbon Dioxide BUN Creatinine Glucose POC Glucose 157 H 56 L 107 H Lactic Acid Calcium Phosphorus Magnesium Iron TIBC Direct Bilirubin AST ALT Alkaline Phosphatase Total Creatine Kinase CK-MB (CK-2) C-Reactive Protein Total Protein Albumin Vitamin B12 Salicylates Acetaminophen Miscellaneous Test Crossmatch 04/16/19 04/16/19 04/16/19 09:06 09:06 11:21 WBC 12.9 H RBC 2.95 L Hgb 9.7 L Hct 28.9 L MCV 98 H MCH 33 H MCHC RDW 17.7 H Plt Count 581 H [place] % (Auto) Lymph # Seg Neuts % (Manual) Lymphocytes % (Manual) Nucleated RBC % Seg Neutrophils # Man Lymphocytes # (Manual) Monocytes # (Manual) PT INR APTT D-Dimer POC ABG pH ABG pH POC ABG pCO2 POC ABG pO2 ABG pO2 ABG HCO3 ABG O2 Saturation ABG Base Excess ABG Hemoglobin VBG pH Oxyhemoglobin Sodium Potassium Chloride Carbon Dioxide 31 H BUN Creatinine 0.2 L Glucose 155 H POC Glucose 184 H Lactic Acid Calcium Phosphorus Magnesium Iron TIBC Direct Bilirubin AST ALT Alkaline Phosphatase Total Creatine Kinase CK-MB (CK-2) C-Reactive Protein Total Protein Albumin Vitamin B12 Salicylates Acetaminophen Miscellaneous Test Crossmatch 04/16/19 04/16/19 04/16/19 17:28 20:17 23:09 WBC RBC Hgb Hct MCV MCH MCHC RDW Plt Count [place] % (Auto) Lymph # Seg Neuts % (Manual) Lymphocytes % (Manual) Nucleated RBC % Seg Neutrophils # Man Lymphocytes # (Manual) Monocytes # (Manual) PT INR APTT D-Dimer POC ABG pH 7.479 H ABG pH POC ABG pCO2 POC ABG pO2 71 L ABG pO2 ABG HCO3 ABG O2 Saturation ABG Base Excess ABG Hemoglobin VBG pH Oxyhemoglobin Sodium Potassium Chloride Carbon Dioxide BUN Creatinine Glucose POC Glucose 173 H 178 H Lactic Acid Calcium Phosphorus Magnesium Iron TIBC Direct Bilirubin AST ALT Alkaline Phosphatase Total Creatine Kinase CK-MB (CK-2) C-Reactive Protein Total Protein Albumin Vitamin B12 Salicylates Acetaminophen Miscellaneous Test Crossmatch 04/17/19 04/17/19 04/17/19 05:02 11:39 12:48 WBC RBC Hgb Hct MCV MCH MCHC RDW Plt Count [place] % (Auto) Lymph # Seg Neuts % (Manual) Lymphocytes % (Manual) Nucleated RBC % Seg Neutrophils # Man Lymphocytes # (Manual) Monocytes # (Manual) PT INR APTT D-Dimer POC ABG pH 7.557 H ABG pH POC ABG pCO2 32.8 L POC ABG pO2 149 H ABG pO2 ABG HCO3 ABG O2 Saturation ABG Base Excess ABG Hemoglobin VBG pH Oxyhemoglobin Sodium Potassium Chloride Carbon Dioxide BUN Creatinine Glucose POC Glucose 252 H 124 H Lactic Acid Calcium Phosphorus Magnesium Iron TIBC Direct Bilirubin AST ALT Alkaline Phosphatase Total Creatine Kinase CK-MB (CK-2) C-Reactive Protein Total Protein Albumin Vitamin B12 Salicylates Acetaminophen Miscellaneous Test Crossmatch 04/17/19 04/18/19 04/18/19 23:31 05:32 11:34 WBC RBC Hgb Hct MCV MCH MCHC RDW Plt Count [place] % (Auto) Lymph # Seg Neuts % (Manual) Lymphocytes % (Manual) Nucleated RBC % Seg Neutrophils # Man Lymphocytes # (Manual) Monocytes # (Manual) PT INR APTT D-Dimer POC ABG pH ABG pH POC ABG pCO2 POC ABG pO2 ABG pO2 ABG HCO3 ABG O2 Saturation ABG Base Excess ABG Hemoglobin VBG pH Oxyhemoglobin Sodium Potassium Chloride Carbon Dioxide BUN Creatinine Glucose POC Glucose 149 H 334 H 344 H Lactic Acid Calcium Phosphorus Magnesium Iron TIBC Direct Bilirubin AST ALT Alkaline Phosphatase Total Creatine Kinase CK-MB (CK-2) C-Reactive Protein Total Protein Albumin Vitamin B12 Salicylates Acetaminophen Miscellaneous Test Crossmatch 04/18/19 04/18/19 04/18/19 17:43 18:14 23:35 WBC RBC Hgb Hct MCV MCH MCHC RDW Plt Count [place] % (Auto) Lymph # Seg Neuts % (Manual) Lymphocytes % (Manual) Nucleated RBC % Seg Neutrophils # Man Lymphocytes # (Manual) Monocytes # (Manual) PT INR APTT D-Dimer POC ABG pH ABG pH POC ABG pCO2 49.2 H POC ABG pO2 ABG pO2 ABG HCO3 ABG O2 Saturation ABG Base Excess ABG Hemoglobin VBG pH Oxyhemoglobin Sodium Potassium Chloride Carbon Dioxide BUN Creatinine Glucose POC Glucose 289 H 312 H Lactic Acid Calcium Phosphorus Magnesium Iron TIBC Direct Bilirubin AST ALT Alkaline Phosphatase Total Creatine Kinase CK-MB (CK-2) C-Reactive Protein Total Protein Albumin Vitamin B12 Salicylates Acetaminophen Miscellaneous Test Crossmatch 04/19/19 04/19/19 04/19/19 04:35 05:55 12:26 WBC RBC Hgb Hct MCV MCH MCHC RDW Plt Count [place] % (Auto) Lymph # Seg Neuts % (Manual) Lymphocytes % (Manual) Nucleated RBC % Seg Neutrophils # Man Lymphocytes # (Manual) Monocytes # (Manual) PT INR APTT D-Dimer POC ABG pH 7.565 H ABG pH POC ABG pCO2 POC ABG pO2 ABG pO2 ABG HCO3 ABG O2 Saturation ABG Base Excess ABG Hemoglobin VBG pH Oxyhemoglobin Sodium Potassium Chloride Carbon Dioxide BUN Creatinine Glucose POC Glucose 172 H 271 H Lactic Acid Calcium Phosphorus Magnesium Iron TIBC Direct Bilirubin AST ALT Alkaline Phosphatase Total Creatine Kinase CK-MB (CK-2) C-Reactive Protein Total Protein Albumin Vitamin B12 Salicylates Acetaminophen Miscellaneous Test Crossmatch 04/19/19 04/19/19 04/19/19 17:54 21:10 23:35 WBC RBC Hgb Hct MCV MCH MCHC RDW Plt Count [place] % (Auto) Lymph # Seg Neuts % (Manual) Lymphocytes % (Manual) Nucleated RBC % Seg Neutrophils # Man Lymphocytes # (Manual) Monocytes # (Manual) PT INR APTT D-Dimer POC ABG pH ABG pH POC ABG pCO2 POC ABG pO2 ABG pO2 ABG HCO3 ABG O2 Saturation ABG Base Excess ABG Hemoglobin VBG pH Oxyhemoglobin Sodium Potassium Chloride Carbon Dioxide BUN Creatinine Glucose POC Glucose 229 H 189 H 131 H Lactic Acid Calcium Phosphorus Magnesium Iron TIBC Direct Bilirubin AST ALT Alkaline Phosphatase Total Creatine Kinase CK-MB (CK-2) C-Reactive Protein Total Protein Albumin Vitamin B12 Salicylates Acetaminophen Miscellaneous Test Crossmatch 04/20/19 04/20/19 04/20/19 05:42 11:58 17:32 WBC RBC Hgb Hct MCV MCH MCHC RDW Plt Count [place] % (Auto) Lymph # Seg Neuts % (Manual) Lymphocytes % (Manual) Nucleated RBC % Seg Neutrophils # Man Lymphocytes # (Manual) Monocytes # (Manual) PT INR APTT D-Dimer POC ABG pH ABG pH POC ABG pCO2 POC ABG pO2 ABG pO2 ABG HCO3 ABG O2 Saturation ABG Base Excess ABG Hemoglobin VBG pH Oxyhemoglobin Sodium Potassium Chloride Carbon Dioxide BUN Creatinine Glucose POC Glucose 289 H 265 H 232 H Lactic Acid Calcium Phosphorus Magnesium Iron TIBC Direct Bilirubin AST ALT Alkaline Phosphatase Total Creatine Kinase CK-MB (CK-2) C-Reactive Protein Total Protein Albumin Vitamin B12 Salicylates Acetaminophen Miscellaneous Test Crossmatch 04/21/19 04/21/19 04/21/19 00:02 05:13 12:41 WBC RBC Hgb Hct MCV MCH MCHC RDW Plt Count [place] % (Auto) Lymph # Seg Neuts % (Manual) Lymphocytes % (Manual) Nucleated RBC % Seg Neutrophils # Man Lymphocytes # (Manual) Monocytes # (Manual) PT INR APTT D-Dimer POC ABG pH ABG pH POC ABG pCO2 POC ABG pO2 ABG pO2 ABG HCO3 ABG O2 Saturation ABG Base Excess ABG Hemoglobin VBG pH Oxyhemoglobin Sodium Potassium Chloride Carbon Dioxide BUN Creatinine Glucose POC Glucose 126 H 233 H 205 H Lactic Acid Calcium Phosphorus Magnesium Iron TIBC Direct Bilirubin AST ALT Alkaline Phosphatase Total Creatine Kinase CK-MB (CK-2) C-Reactive Protein Total Protein Albumin Vitamin B12 Salicylates Acetaminophen Miscellaneous Test Crossmatch 04/21/19 04/22/19 04/22/19 23:42 03:57 03:57 WBC 11.5 H RBC 3.44 L Hgb Hct MCV MCH MCHC RDW 16.3 H Plt Count 510 H [place] % (Auto) Lymph # Seg Neuts % (Manual) Lymphocytes % (Manual) Nucleated RBC % Seg Neutrophils # Man Lymphocytes # (Manual) Monocytes # (Manual) PT INR APTT D-Dimer POC ABG pH ABG pH POC ABG pCO2 POC ABG pO2 ABG pO2 ABG HCO3 ABG O2 Saturation ABG Base Excess ABG Hemoglobin VBG pH Oxyhemoglobin Sodium Potassium Chloride 96.3 L Carbon Dioxide BUN Creatinine 0.2 L Glucose 333 H POC Glucose 149 H Lactic Acid Calcium Phosphorus Magnesium Iron TIBC Direct Bilirubin AST 60 H ALT Alkaline Phosphatase 204 H Total Creatine Kinase CK-MB (CK-2) C-Reactive Protein Total Protein Albumin 3.1 L Vitamin B12 Salicylates Acetaminophen Miscellaneous Test Crossmatch 04/22/19 04/22/19 05:18 12:03 WBC RBC Hgb Hct MCV MCH MCHC RDW Plt Count [place] % (Auto) Lymph # Seg Neuts % (Manual) Lymphocytes % (Manual) Nucleated RBC % Seg Neutrophils # Man Lymphocytes # (Manual) Monocytes # (Manual) PT INR APTT D-Dimer POC ABG pH ABG pH POC ABG pCO2 POC ABG pO2 ABG pO2 ABG HCO3 ABG O2 Saturation ABG Base Excess ABG Hemoglobin VBG pH Oxyhemoglobin Sodium Potassium Chloride Carbon Dioxide BUN Creatinine Glucose POC Glucose 345 H 308 H Lactic Acid Calcium Phosphorus Magnesium Iron TIBC Direct Bilirubin AST ALT Alkaline Phosphatase Total Creatine Kinase CK-MB (CK-2) C-Reactive Protein Total Protein Albumin Vitamin B12 Salicylates Acetaminophen Miscellaneous Test Crossmatch Allied health notes reviewed: nursing
[2019-04-22] MEDS: ROBINUL FEEDTUBE SCH (19:37)
[2019-04-22] MEDS: LANTUS SUB-Q SCH (21:28)
[2019-04-23] MEDS: HumaLOG SUB-Q SCH ×4 (00:09→21:32)
[2019-04-23] MEDS: ROBINUL FEEDTUBE SCH ×3 (08:20→20:59)
[2019-04-23] MEDS: DUONEB *Not for PRN Use IH SCH ×3 (08:22→20:51)
[2019-04-23] MEDS: METOPROLOL PO SCH ×2 (10:04→21:25)
[2019-04-23] MEDS: PEPCID PO SCH ×2 (10:04→21:21)
[2019-04-23] MEDS: SODIUM CHLORIDE FLUSH SYRINGE 10 ML IV SCH ×2 (10:05→21:27)
[2019-04-23] MEDS: KEPPRA PO SCH ×2 (10:05→21:21)
[2019-04-23] MEDS: ENOXAPARIN SUB-Q SCH (10:05)
--- NOTE | 2019-04-23 11:07 | Progress Note ---
Assessment and Plan Assessment and plan: Patient is a 29 year old woman with a history of diabetes was brought to the emergency room following a cardiac arrest. Her last well-known time was 10:30 in the morning, she was traveling with a friend, she was unresponsive in the back seat. EMS was called, CPR was started and continued here in the emergency room. Patient was intubated in the ER, noted hypotensive started on dobutamine, epinephrine and Levophed drip, given IV fluids, found to be in DKA with BG ~2200, several metabolic derangements - placed on insulin drip and admitted to ICU. BP improved and she was weaned off pressors. Still intubated on vent, minimal response. patient has been in coma for several days, no improvement. She has a DNR status order. Uncontrolled DM type 1 with hyperglycemia - increase Lantus dose, give extra 10 units - increase SSI Acute respiratory failure s/p intubated, off vent - s/p trach and peg - Tracheostomy re-adjusted on 04/17/19 - on vent, cont nebs, - s/p Trach POD 3 - Pulm following - Aspiration precautions - VAP bundle Acute anoxic encephalopathy, POA - from cardiac arrest for DM - Neurology following -MR concerning for anoxic Brain injury Cardiac arrest s/p resuscitation - likely 2/2 severe hyperglycemia - preserved EF on 2D echo Generalized Anasacara -Given a dose of Bumex DKA, severe - BG was >2200 on admission - s/p insulin drip. cont iv fluid - monitor BG q4h, on TF and on subqu insulin - adjust dose as needed Shock hypotensive +/- sepsis - resolved Now off pressors. Was on vasopressin, Levophed, Phenylephrine Sepsis with possible aspiration PNA - evident on CXR on admission with left sided infiltrates - cont abx per ID - Competed abx - Abx discontinued following notation that no evidence of liver lesion not consistent with infection per ID - Leucocytosis and thrombocytosis are likely reactive from hepatic subcapsular hematoma Head lice - multiple dosing of Permethin given - continue isolation Acute renal failure, likely vasomotor nephropathy - resolved - cont iv fluid, monitor BMP Anemia, acute on chronic - no sign of blood loss s/p 2 Units PRBC transfused Hyperkalemia, resolved with fluid and insulin Hypernatremia Resolved hypokalemia, resolved Shock liver with elevated LFT and Coagulopathy - due to cardiac arrest and hypotension - cont to monitor Liver lesion ID Physician following Discontinued abx, not consistent with infection as noted above Hypermagnesemia - monitor levels as needed Hyperphosphatemia -cont to monitor, improved Stage 1 sacral ulcer, poa - upper ext blisters - pressure ulcer prevention strategies - wound care VTE Prophylaxis with Lovenox Poor prognosis DNR status Disposition: continue inpatient care, await placement in [place], [place] I called mother Amberly [phone] and spoke with her at 11:05am, she will be back next Tuesday. History Interval history: Patient was seen and examined. Follow-up on current diagnosis respiratory failure. No overnight events reported to me.. Imaging, nursing note, chart, labs and old chart reviewed. Hospitalist Physical - Physical exam Narrative exam: Gen: On full MVS and tolerating HEENT: facial edema, atraumatic. Trach bed clean with no drainage, opens eyes spontanously Neck: supple, no JVD Heart: S1 and S2 reg, Tachycardia, no murmurs, rubs or gallop Lungs: Clear to auscultation, no rhonchi, no wheeze Abd: soft, non tender, non distended, normal BS, Ext: anasarca, leg edema, no cyanosis Neuro: Minimal responsive, does not follow commands, Skin: see full skin assessment. Stage 1 sacral ulcer - Constitutional Vitals: Temp Pulse Resp BP Pulse Ox 97.1 F L 139 H 25 H 123/87 96 04/23/19 08:00 04/23/19 10:04 04/23/19 08:23 04/23/19 10:04 04/23/19 08:30 General appearance: Present: other (intubated) Results - Labs CBC & Chem 7: 04/22/19 03:57 04/22/19 03:57 Labs: Laboratory Last Values WBC 11.5 K/mm3 (4.5-11.0) H 04/22/19 03:57 RBC 3.44 M/mm3 (3.65-5.03) L 04/22/19 03:57 Hgb 10.6 gm/dl (10.1-14.3) 04/22/19 03:57 Hct 32.9 % (30.3-42.9) 04/22/19 03:57 MCV 96 fl (79-97) 04/22/19 03:57 MCH 31 pg (28-32) 04/22/19 03:57 MCHC 32 % (30-34) 04/22/19 03:57 RDW 16.3 % (13.2-15.2) H 04/22/19 03:57 Plt Count 510 K/mm3 (140-440) H 04/22/19 03:57 Lymph % (Auto) 16.9 % (13.4-35.0) 04/03/19 03:40 [place] % (Auto) 9.8 % (0.0-7.3) H 04/03/19 03:40 Eos % (Auto) 3.2 % (0.0-4.3) 04/03/19 03:40 Baso % (Auto) 0.4 % (0.0-1.8) 04/03/19 03:40 Lymph # 1.1 K/mm3 (1.2-5.4) L 04/03/19 03:40 [place]oard # 0.6 K/mm3 (0.0-0.8) 04/03/19 03:40 Eos # 0.2 K/mm3 (0.0-0.4) 04/03/19 03:40 Baso # 0.0 K/mm3 (0.0-0.1) 04/03/19 03:40 Add Manual Diff Complete 04/01/19 05:01 Total Counted 100 04/01/19 05:01 Seg Neutrophils % 69.7 % (40.0-70.0) 04/03/19 03:40 Seg Neuts % (Manual) 71.0 % (40.0-70.0) H 04/01/19 05:01 Band Neutrophils % 0 % 04/01/19 05:01 Lymphocytes % (Manual) 20.0 % (13.4-35.0) 04/01/19 05:01 Reactive Lymphs % (Man) 0 % 04/01/19 05:01 Monocytes % (Manual) 7.0 % (0.0-7.3) 04/01/19 05:01 Eosinophils % (Manual) 2.0 % (0.0-4.3) 04/01/19 05:01 Basophils % (Manual) 0 % (0.0-1.8) 04/01/19 05:01 Metamyelocytes % 0 % 04/01/19 05:01 Myelocytes % 0 % 04/01/19 05:01 Promyelocytes % 0 % 04/01/19 05:01 Blast Cells % 0 % 04/01/19 05:01 Nucleated RBC % Not Reportable 04/01/19 05:01 Seg Neutrophils # 4.4 K/mm3 (1.8-7.7) 04/03/19 03:40 Seg Neutrophils # Man 4.8 K/mm3 (1.8-7.7) 04/01/19 05:01 Band Neutrophils # 0.0 K/mm3 04/01/19 05:01 Lymphocytes # (Manual) 1.4 K/mm3 (1.2-5.4) 04/01/19 05:01 Abs React Lymphs (Man) 0.0 K/mm3 04/01/19 05:01 Monocytes # (Manual) 0.5 K/mm3 (0.0-0.8) 04/01/19 05:01 Eosinophils # (Manual) 0.1 K/mm3 (0.0-0.4) 04/01/19 05:01 Basophils # (Manual) 0.0 K/mm3 (0.0-0.1) 04/01/19 05:01 Metamyelocytes # 0.0 K/mm3 04/01/19 05:01 Myelocytes # 0.0 K/mm3 04/01/19 05:01 Promyelocytes # 0.0 K/mm3 04/01/19 05:01 Blast Cells # 0.0 K/mm3 04/01/19 05:01 WBC Morphology Not Reportable 04/01/19 05:01 Hypersegmented Neuts Not Reportable 04/01/19 05:01 Hyposegmented Neuts Not Reportable 04/01/19 05:01 Hypogranular Neuts Not Reportable 04/01/19 05:01 Smudge Cells Not Reportable 04/01/19 05:01 Toxic Granulation Not Reportable 04/01/19 05:01 Toxic Vacuolation Not Reportable 04/01/19 05:01 Dohle Bodies Not Reportable 04/01/19 05:01 Pelger-Huet Anomaly Not Reportable 04/01/19 05:01 Wong Rods Not Reportable 04/01/19 05:01 Platelet Estimate Not Reportable 04/01/19 05:01 Clumped Platelets Not Reportable 04/01/19 05:01 Plt Clumps, EDTA Not Reportable 04/01/19 05:01 Large Platelets Not Reportable 04/01/19 05:01 Giant Platelets Not Reportable 04/01/19 05:01 Platelet Satelliting Not Reportable 04/01/19 05:01 Plt Morphology Comment Not Reportable 04/01/19 05:01 RBC Morphology Normal 04/01/19 05:01 Dimorphic RBCs Not Reportable 04/01/19 05:01 Polychromasia Not Reportable 04/01/19 05:01 Hypochromasia Not Reportable 04/01/19 05:01 Poikilocytosis Not Reportable 04/01/19 05:01 Anisocytosis Not Reportable 04/01/19 05:01 Microcytosis Not Reportable 04/01/19 05:01 Macrocytosis Not Reportable 04/01/19 05:01 Spherocytes Not Reportable 04/01/19 05:01 Pappenheimer Bodies Not Reportable 04/01/19 05:01 Sickle Cells Not Reportable 04/01/19 05:01 Target Cells Not Reportable 04/01/19 05:01 Tear Drop Cells Not Reportable 04/01/19 05:01 Ovalocytes Not Reportable 04/01/19 05:01 Helmet Cells Not Reportable 04/01/19 05:01 Muñoz-[place] Bodies Not Reportable 04/01/19 05:01 [place] Rings Not Reportable 04/01/19 05:01 Griffith Cells Not Reportable 04/01/19 05:01 Bite Cells Not Reportable 04/01/19 05:01 Crenated Cell Not Reportable 04/01/19 05:01 Elliptocytes Not Reportable 04/01/19 05:01 Acanthocytes (Spur) Not Reportable 04/01/19 05:01 Rouleaux Not Reportable 04/01/19 05:01 Hemoglobin C Crystals Not Reportable 04/01/19 05:01 Schistocytes Not Reportable 04/01/19 05:01 Malaria parasites Not Reportable 04/01/19 05:01 Benja Bodies Not Reportable 04/01/19 05:01 Hem Pathologist Commnt No 04/01/19 05:01 PT 13.9 Sec. (12.2-14.9) 04/01/19 17:14 INR 1.10 (0.87-1.13) 04/01/19 17:14 APTT 74.5 Sec. (24.2-36.6) H* 03/29/19 19:20 Fibrinogen 313 mg/dl (211-480) 04/01/19 17:14 D-Dimer 4526.86 ng/mlDDU (0-234) H 04/06/19 00:06 Heparin Anti-Xa, Unfract Negative (Negative) 03/31/19 15:00 POC ABG pH 7.565 (7.35-7.45) H 04/19/19 04:35 ABG pH 7.396 pH Units (7.350-7.450) 04/03/19 05:35 POC ABG pCO2 36.2 (35-45) 04/19/19 04:35 ABG pCO2 32.2 mm Hg 04/03/19 05:35 POC ABG pO2 88 (80-105) 04/19/19 04:35 ABG pO2 97.7 mm Hg (80.0-90.0) H 04/03/19 05:35 POC ABG HCO3 32.8 (22-26 mml/L) 04/19/19 04:35 ABG HCO3 19.3 mmol/L (20.0-26.0) L 04/03/19 05:35 POC ABG Total CO2 34 (23-27mmol/L) 04/19/19 04:35 POC ABG O2 Sat 98 04/19/19 04:35 ABG O2 Saturation 97.6 % (95.0-99.0) 04/03/19 05:35 ABG O2 Content 10.9 (0.0-44) 04/03/19 05:35 POC ABG Base Excess 11 ((-2) - (+3)mmol/L) 04/19/19 04:35 ABG Base Excess -5.0 mmol/L (-2.0-3.0) L 04/03/19 05:35 ABG Hemoglobin 8.0 gm/dl (12.0-16.0) L 04/03/19 05:35 ABG Carboxyhemoglobin 2.1 % (0.0-5.0) 04/03/19 05:35 ABG Methemoglobin 0.5 % (0.0-1.5) 04/03/19 05:35 VBG pH 6.800 (7.320-7.420) L* 03/29/19 19:47 Oxyhemoglobin 95.1 % (95.0-99.0) 04/03/19 05:35 FiO2 40 % 04/19/19 04:35 Sodium 138 mmol/L (137-145) 04/22/19 03:57 Potassium 4.6 mmol/L (3.6-5.0) 04/22/19 03:57 Chloride 96.3 mmol/L (98-107) L 04/22/19 03:57 Carbon Dioxide 28 mmol/L (22-30) 04/22/19 03:57 Anion Gap 18 mmol/L 04/22/19 03:57 BUN 14 mg/dL (7-17) 04/22/19 03:57 Creatinine 0.2 mg/dL (0.7-1.2) L 04/22/19 03:57 Estimated GFR > 60 ml/min 04/22/19 03:57 BUN/Creatinine Ratio 70 % 04/22/19 03:57 Glucose 333 mg/dL (65-100) H 04/22/19 03:57 POC Glucose 260 (70-105) H 04/23/19 05:43 Lactic Acid 3.30 mmol/L (0.7-2.0) H* 03/31/19 07:50 Calcium 9.6 mg/dL (8.4-10.2) 04/22/19 03:57 Phosphorus 4.10 mg/dL (2.5-4.5) 04/09/19 16:25 Magnesium 1.70 mg/dL (1.7-2.3) 04/22/19 03:57 Iron 26 ug/dL (37-170) L 03/31/19 08:20 TIBC 193 mcg/dL (250-450) L 03/31/19 08:20 Total Bilirubin 0.20 mg/dL (0.1-1.2) 04/22/19 03:57 Direct Bilirubin 0.2 mg/dL (0-0.2) 04/02/19 07:48 Indirect Bilirubin 0.5 mg/dL 04/02/19 07:48 AST 60 units/L (5-40) H 04/22/19 03:57 ALT 31 units/L (7-56) 04/22/19 03:57 Alkaline Phosphatase 204 units/L (35-129) H 04/22/19 03:57 Total Creatine Kinase 2465 units/L (30-135) H 03/30/19 05:26 CK-MB (CK-2) 52.7 ng/mL (0.0-4.0) H 03/30/19 05:26 CK-MB (CK-2) Rel Index 2.1 (0-4) 03/30/19 05:26 Troponin T < 0.010 ng/mL (0.00-0.029) 04/06/19 05:20 C-Reactive Protein 2.40 mg/dL (0.00-1.30) H 03/30/19 12:57 Total Protein 7.6 g/dL (6.3-8.2) 04/22/19 03:57 Albumin 3.1 g/dL (3.9-5) L 04/22/19 03:57 Albumin/Globulin Ratio 0.7 % 04/22/19 03:57 Serotonin Release Assay See scanned result 03/31/19 15:00 Vitamin B12 > 2000 pg/mL (211-911) H 03/31/19 08:20 Folate > 20 ng/mL (7.3-26.0) 03/31/19 08:20 HCG, Qual Negative (Negative) 03/29/19 19:20 Urine Color Yellow (Yellow) 03/29/19 23:10 Urine Turbidity Slightly-cloudy (Clear) 03/29/19 23:10 Urine pH 6.0 (5.0-7.0) 03/29/19 23:10 Ur Specific [place] 1.021 (1.003-1.030) 03/29/19 23:10 Urine Protein 100 mg/dl mg/dL (Negative) 03/29/19 23:10 Urine Glucose (UA) >=500 mg/dL (Negative) 03/29/19 23:10 Urine Ketones 20 mg/dL (Negative) 03/29/19 23:10 Urine Blood Lg (Negative) 03/29/19 23:10 Urine Nitrite Neg (Negative) 03/29/19 23:10 Urine Bilirubin Neg (Negative) 03/29/19 23:10 Urine Urobilinogen < 2.0 mg/dL (<2.0) 03/29/19 23:10 Ur Leukocyte Esterase Neg (Negative) 03/29/19 23:10 Urine WBC (Auto) 1.0 /HPF (0.0-6.0) 03/29/19 23:10 Urine RBC (Auto) 1.0 /HPF (0.0-6.0) 03/29/19 23:10 Urine Mucus Few /HPF 03/29/19 23:10 Salicylates 0.8 mg/dL (2.8-20.0) L 03/30/19 Unknown Urine Opiates Screen Presumptive negative 03/29/19 23:10 Urine Methadone Screen Presumptive negative 03/29/19 23:10 Acetaminophen < 5.0 ug/mL (10.0-30.0) L 03/30/19 Unknown Ur Barbiturates Screen Presumptive negative 03/29/19 23:10 Ur Phencyclidine Scrn Presumptive negative 03/29/19 23:10 Ur Amphetamines Screen Presumptive negative 03/29/19 23:10 U Benzodiazepines Scrn Presumptive negative 03/29/19 23:10 Urine Cocaine Screen Presumptive negative 03/29/19 23:10 U Marijuana (THC) Screen Presumptive negative 03/29/19 23:10 Drugs of Abuse Note Disclamer 03/29/19 23:10 Heparin-induced Plt Ab Negative (Negative) 03/31/19 15:00 UF Heparin High Dose 0 % Release 03/31/19 15:00 FABIAN UFH Low Dose 0.1 0 % Release 03/31/19 15:00 FABIAN UFH Low Dose 0.5 0 % Release 03/31/19 15:00 Hepatitis A IgM Ab Non-reactive (NonReactive) 03/30/19 Unknown Hep Bs Antigen Non-reactive (Negative) 03/30/19 Unknown Hep B Core IgM Ab Non-reactive (NonReactive) 03/30/19 Unknown Hepatitis C Antibody Non-reactive (NonReactive) 03/30/19 Unknown Miscellaneous Test Flexitest 1 H 03/30/19 14:00 Blood Type O POSITIVE 03/30/19 03:30 Antibody Screen Negative 03/30/19 03:30 Crossmatch See Detail 03/30/19 03:30 Active Medications - Current Medications Current Medications: Generic Name Dose Route Start Last Admin Trade Name Freq PRN Reason Stop Dose Admin Acetaminophen 650 mg 03/29/19 23:34 04/21/19 21:02 Tylenol PO 650 mg Q4H PRN Administration Pain MILD(1-3)/Fever >100.5/WARE Albuterol/Ipratropium 1 ampul 04/20/19 20:00 04/23/19 08:22 Duoneb *Not For Prn Use* IH 04/23/19 23:59 1 ampul TIDRT ZAMZAM Administration Lipase/Protease/Amylase 1 each 04/02/19 11:44 Pancreaze 10,500 Unit FEEDTUBE PRN PRN For Clogged Feeding Tube Dextrose 50 ml 04/21/19 12:03 D50w (25gm) Syringe IV PRN PRN Hypoglycemia Enoxaparin Sodium 40 mg 04/14/19 10:00 04/23/19 10:05 Lovenox SUB-Q 40 mg QDAY@1000 ZAMZAM Administration Famotidine 20 mg 04/02/19 10:00 04/23/19 10:04 Pepcid PO 20 mg BID ZAMZAM Administration Fentanyl 50 mcg 04/05/19 11:00 04/19/19 02:13 Sublimaze IV 50 mcg Q2H PRN Administration Pain , Severe (7-10)/AGITATION Fentanyl 25 mcg 04/14/19 14:00 04/20/19 14:08 Duragesic TD 25 mcg Q3D ZAMZAM Administration Glycopyrrolate 1 mg 04/22/19 20:00 04/23/19 08:20 Robinul FEEDTUBE 1 mg TID ZAMZAM Administration Hydrophilic Ointment 1 applic 03/30/19 11:24 04/22/19 08:37 Vaseline Lip Therapy TP 1 applic Q2HR PRN Administration Dry Lips Insulin Glargine 20 units 04/09/19 22:00 04/22/19 21:28 Lantus SUB-Q 20 units QHS ZAMZAM Administration Insulin Human Lispro 0 unit 04/21/19 13:00 04/23/19 06:54 Humalog SUB-Q 6 unit Q6HR ZAMZAM Administration Protocol Levetiracetam 500 mg 04/03/19 10:00 04/23/19 10:05 Keppra PO 500 mg BID ZAMZAM Administration Metoprolol Tartrate 5 mg 04/14/19 13:06 04/22/19 08:29 Lopressor IV 5 mg Q6HR PRN Administration Tachyarrhythmias Metoprolol Tartrate 25 mg 04/16/19 10:00 04/23/19 10:04 Lopressor PO 25 mg BID ZAMZAM Administration Multi-Ingred Cream/Lotion/Oil/Oint 1 applic 03/30/19 11:24 04/06/19 11:39 Artificial Tears Ophth Oint OU 1 applic Q4HR PRN Administration Dry Eye(s) Ondansetron HCl 4 mg 03/29/19 23:34 Zofran IV Q8H PRN Nausea And Vomiting Scopolamine 1 each 04/17/19 12:00 04/20/19 11:57 Transderm-Scop TD 1 each Q3D ZAMZAM Administration Simple Syrup 15 ml 04/02/19 11:44 04/14/19 01:53 Simple Syrup FEEDTUBE 15 ml PRN PRN Administration Hypoglycemia Simple Syrup 30 ml 04/02/19 11:44 Simple Syrup FEEDTUBE PRN PRN Hypoglycemia Sodium Bicarbonate 325 mg 04/02/19 11:44 Sodium Bicarbonate FEEDTUBE PRN PRN For Clogged Feeding Tube Sodium Chloride 10 ml 03/30/19 10:00 04/23/19 10:05 Sodium Chloride Flush Syringe 10 Ml IV 10 ml BID ZAMZAM Administration Sodium Chloride 10 ml 03/29/19 23:34 04/22/19 08:29 Sodium Chloride Flush Syringe 10 Ml IV 10 ml PRN PRN Administration LINE FLUSH Nutrition/Malnutrition Assess - Dietary Evaluation Nutrition/Malnutrition Findings: Nutrition Notes Start: 03/30/19 13:14 Freq: Status: Active Protocol: Document 04/18/19 10:55 LM (Rec: 04/18/19 11:07 LM [id number]) Nutrition Notes Initial or Follow up Reassessment Current Diagnosis Acute Kidney Injury,Diabetes, Sepsis,Respiratory Failure Other Pertinent Diagnosis s/p trach & PEG, s/p cardiac arrest, DKA, ARF, Shock liver Current Diet Glucerna 1.2 at 50 ml/hr Labs/Tests POC glu 149 Pertinent Medications Reviewed Height 5 ft Weight 42.5 kg [place] Body Weight (kg) 45.45 BMI 18.3 Subjective/Other Information Glucerna running at 50 ml/hr via PEG. Per RN pt is tolerating TF. Percent of energy/protein needs met: 97%/100% Burn Absent Trauma Absent #1 Nutrition Diagnosis Inadequate oral intake Diagnosis Progress(for reassessment Continues documentation) Is patient on ventilator? Yes Is Patient Ambulatory and/or Out of Bed No REE-([facility]-confined to bed) 1276.272 Kcal/Kg value to use for calculation 35 Approximate Energy Requirements Using 1488 kcal/Kg Calculation Used for Recommendations [facility] Additional Notes Protein: 1.2-2g/k-86g/day Fluids: 1ml/kcal Nutrition Intervention Change Diet Order: Continue TF Nutrition Support: Glucerna 1.2 at 50ml/hr with 80ml water flush q4h. Kcal 1,440 Protein (gm) 72 Fluid (mL) 966 Goal #1 Meet at least 75% of energy and protein needs Follow-Up By: 04/25/19 Additional Comments F/U for TF tolerance/rate
[2019-04-23] MEDS: TRANSDERM-SCOP TD SCH (11:49)
--- NOTE | 2019-04-23 13:07 | Progress Note ---
Assessment and Plan atient resting on T tube. Patient awake. Not following any commands. Patient is on T tube, FIO2 35%. O2 saturation 97%.Patient afebrile and has mild leukocytosis - Patient Problems (1) Cardiac arrest Current Visit: Yes Status: Acute Plan to address problem: Patient resucitated. Presently resting on T tube. Patient awake. Not following any commands. (2) Status post tracheostomy Current Visit: Yes Status: Acute Plan to address problem: Respiratory suctioning. Recommend trach care as per respiratory therapy protocol. (3) DKA, type 1 Current Visit: Yes Status: Acute Qualifiers: Diabetes mellitus complication detail: with coma Qualified Code(s): E10.11 - Type 1 diabetes mellitus with ketoacidosis with coma Plan to address problem: Management as per primary care. (4) Hypotension Current Visit: Yes Status: Acute Qualifiers: Hypotension type: unspecified hypotension type Qualified Code(s): I95.9 - Hypotension, unspecified Plan to address problem: Improved. Recent blood pressure 105/75. (5) Renal failure Current Visit: Yes Status: Acute Qualifiers: Renal failure chronicity: acute Acute renal failure type: unspecified Qualified Code(s): N17.9 - Acute kidney failure, unspecified Plan to address problem: Improved. Management as per primary care and nephrology . Subjective Date of service: 04/23/19 Principal diagnosis: Ac Hypoxemic Resp Failure; DKA; Severe sepsis with shock; ANGELICA Interval history: Patient resting on T tube. Patient awake. Not following any commands. Patient is on T tube, FIO2 35%. O2 saturation 97%.Patient afebrile and has mild leukocytosis. Objective Vital Signs - 12hr 04/23/19 04/23/19 04/23/19 02:00 03:00 04:00 Temperature 97.8 F Pulse Rate 113 H 115 H 114 H Pulse Rate [ Anterior Bilateral] Pulse Rate [ 114 H From Monitor] Respiratory 23 24 24 Rate Respiratory Rate [Anterior Bilateral] Blood Pressure 116/79 117/79 119/83 O2 Sat by Pulse 94 95 94 Oximetry O2 Sat by Pulse Oximetry [ Assessment] 04/23/19 04/23/19 04/23/19 05:00 06:00 07:00 Temperature Pulse Rate 119 H 128 H 133 H Pulse Rate [ Anterior Bilateral] Pulse Rate [ From Monitor] Respiratory 20 29 H 30 H Rate Respiratory Rate [Anterior Bilateral] Blood Pressure 129/97 123/88 116/85 O2 Sat by Pulse 96 97 93 Oximetry O2 Sat by Pulse Oximetry [ Assessment] 04/23/19 04/23/19 04/23/19 08:00 08:22 08:23 Temperature 97.1 F L Pulse Rate 129 H Pulse Rate [ 124 H Anterior Bilateral] Pulse Rate [ 129 H From Monitor] Respiratory 38 H Rate Respiratory 25 H Rate [Anterior Bilateral] Blood Pressure 122/93 O2 Sat by Pulse 97 96 Oximetry O2 Sat by Pulse Oximetry [ Assessment] 04/23/19 04/23/19 04/23/19 08:30 09:00 10:00 Temperature Pulse Rate 133 H 139 H Pulse Rate [ Anterior Bilateral] Pulse Rate [ From Monitor] Respiratory 25 H 44 H Rate Respiratory Rate [Anterior Bilateral] Blood Pressure 129/90 125/88 O2 Sat by Pulse 93 96 Oximetry O2 Sat by Pulse 96 Oximetry [ Assessment] 04/23/19 04/23/19 04/23/19 10:04 11:00 12:00 Temperature 97.6 F Pulse Rate 139 H 119 H 106 H Pulse Rate [ Anterior Bilateral] Pulse Rate [ 106 H From Monitor] Respiratory 41 H 28 H Rate Respiratory Rate [Anterior Bilateral] Blood Pressure 123/87 110/78 105/75 O2 Sat by Pulse 92 97 Oximetry O2 Sat by Pulse Oximetry [ Assessment] Constitutional: no acute distress, other (young CF normocephalic and atraumatic s/p tracheostomy to ATP, copious secretions) Eyes: non-icteric ENT: oropharynx moist, other Neck: supple, no lymphadenopathy, no JVD Effort: mildly labored Ascultation: Bilateral: diminished breath sounds, rhonchi Percussion: Bilateral: not dull Cardiovascular: regular rate and rhythm Gastrointestinal: normoactive bowel sounds, soft, non-tender, non-distended, other (PEG tube) Integumentary: erythema (noted on upper extremity) Extremities: no cyanosis, no edema, pink and warm, pulses normal, no ischemia or petechiae Neurologic: unable to assess (awake, alert, not obeying commands) Psychiatric: other (unable to assess) CBC and BMP: 04/22/19 03:57 04/22/19 03:57 ABG, PT/INR, D-dimer: ABG POC ABG pH 7.565 (7.35-7.45) H 04/19/19 04:35 ABG pH 7.396 pH Units (7.350-7.450) 04/03/19 05:35 POC ABG pCO2 36.2 (35-45) 04/19/19 04:35 ABG pCO2 32.2 mm Hg 04/03/19 05:35 POC ABG pO2 88 (80-105) 04/19/19 04:35 ABG pO2 97.7 mm Hg (80.0-90.0) H 04/03/19 05:35 POC ABG HCO3 32.8 (22-26 mml/L) 04/19/19 04:35 POC ABG Total CO2 34 (23-27mmol/L) 04/19/19 04:35 POC ABG O2 Sat 98 04/19/19 04:35 ABG O2 Saturation 97.6 % (95.0-99.0) 04/03/19 05:35 PT/INR, D-dimer PT 13.9 Sec. (12.2-14.9) 04/01/19 17:14 INR 1.10 (0.87-1.13) 04/01/19 17:14 D-Dimer 4526.86 ng/mlDDU (0-234) H 04/06/19 00:06 Abnormal lab findings: Abnormal Labs 03/29/19 03/29/19 03/29/19 19:11 19:20 19:20 WBC 26.7 H RBC 2.52 L Hgb 8.1 L Hct MCV 148 H MCH MCHC 22 L RDW 18.5 H Plt Count Hall % (Auto) Lymph # Seg Neuts % (Manual) 82.0 H Lymphocytes % (Manual) 7.0 L Nucleated RBC % Seg Neutrophils # Man 21.9 H Lymphocytes # (Manual) Monocytes # (Manual) 1.9 H PT 21.8 H INR 1.95 H APTT 74.5 H* D-Dimer POC ABG pH ABG pH POC ABG pCO2 POC ABG pO2 ABG pO2 ABG HCO3 ABG O2 Saturation ABG Base Excess ABG Hemoglobin VBG pH Oxyhemoglobin Sodium Potassium Chloride Carbon Dioxide BUN Creatinine Glucose POC Glucose > 500 H Lactic Acid Calcium Phosphorus Magnesium Iron TIBC Direct Bilirubin AST ALT Alkaline Phosphatase Total Creatine Kinase CK-MB (CK-2) C-Reactive Protein Total Protein Albumin Vitamin B12 Salicylates Acetaminophen Miscellaneous Test Crossmatch 03/29/19 03/29/19 03/29/19 19:20 19:47 20:59 WBC RBC Hgb Hct MCV MCH MCHC RDW Plt Count [place] % (Auto) Lymph # Seg Neuts % (Manual) Lymphocytes % (Manual) Nucleated RBC % Seg Neutrophils # Man Lymphocytes # (Manual) Monocytes # (Manual) PT INR APTT D-Dimer POC ABG pH 6.892 L ABG pH POC ABG pCO2 POC ABG pO2 236 H ABG pO2 ABG HCO3 ABG O2 Saturation ABG Base Excess ABG Hemoglobin VBG pH 6.800 L* Oxyhemoglobin Sodium 118 L* Potassium 9.0 H* Chloride 64.5 L Carbon Dioxide 7 L* BUN 53 H Creatinine 2.1 H Glucose 2196 H* POC Glucose Lactic Acid Calcium 12.4 H* Phosphorus Magnesium Iron TIBC Direct Bilirubin AST 3900 H ALT 1034 H Alkaline Phosphatase 316 H Total Creatine Kinase CK-MB (CK-2) C-Reactive Protein Total Protein 5.1 L Albumin 2.8 L Vitamin B12 Salicylates Acetaminophen Miscellaneous Test Crossmatch 03/29/19 03/29/19 03/29/19 22:45 22:45 22:45 WBC RBC Hgb Hct MCV MCH MCHC RDW Plt Count [place] % (Auto) Lymph # Seg Neuts % (Manual) Lymphocytes % (Manual) Nucleated RBC % Seg Neutrophils # Man Lymphocytes # (Manual) Monocytes # (Manual) PT INR APTT D-Dimer POC ABG pH ABG pH POC ABG pCO2 POC ABG pO2 ABG pO2 ABG HCO3 ABG O2 Saturation ABG Base Excess ABG Hemoglobin VBG pH Oxyhemoglobin Sodium 132 L D Potassium 7.0 H* Chloride 84.3 L Carbon Dioxide 3 L* BUN 48 H Creatinine 1.8 H Glucose 1779 H* POC Glucose Lactic Acid Calcium Phosphorus 21.70 H Magnesium 4.70 H Iron TIBC Direct Bilirubin AST ALT Alkaline Phosphatase Total Creatine Kinase 363 H CK-MB (CK-2) C-Reactive Protein Total Protein Albumin Vitamin B12 Salicylates Acetaminophen Miscellaneous Test Crossmatch 03/29/19 03/29/19 03/30/19 Unknown Unknown 00:11 WBC RBC Hgb Hct MCV MCH MCHC RDW Plt Count [place] % (Auto) Lymph # Seg Neuts % (Manual) Lymphocytes % (Manual) Nucleated RBC % Seg Neutrophils # Man Lymphocytes # (Manual) Monocytes # (Manual) PT INR APTT D-Dimer POC ABG pH ABG pH POC ABG pCO2 POC ABG pO2 ABG pO2 ABG HCO3 ABG O2 Saturation ABG Base Excess ABG Hemoglobin VBG pH Oxyhemoglobin Sodium 122 L Potassium 7.9 H* 6.4 H* Chloride 75.3 L 89.7 L Carbon Dioxide 3 L* 12 L D BUN 52 H 46 H Creatinine 2.0 H 1.7 H Glucose 2043 H* 1591 H* POC Glucose Lactic Acid Calcium 7.8 L Phosphorus 19.30 H Magnesium 3.90 H Iron TIBC Direct Bilirubin AST ALT Alkaline Phosphatase Total Creatine Kinase CK-MB (CK-2) C-Reactive Protein Total Protein Albumin Vitamin B12 Salicylates Acetaminophen Miscellaneous Test Crossmatch 03/30/19 03/30/19 03/30/19 00:11 02:14 02:14 WBC RBC Hgb Hct MCV MCH MCHC RDW Plt Count [place] % (Auto) Lymph # Seg Neuts % (Manual) Lymphocytes % (Manual) Nucleated RBC % Seg Neutrophils # Man Lymphocytes # (Manual) Monocytes # (Manual) PT INR APTT D-Dimer POC ABG pH ABG pH POC ABG pCO2 POC ABG pO2 ABG pO2 ABG HCO3 ABG O2 Saturation ABG Base Excess ABG Hemoglobin VBG pH Oxyhemoglobin Sodium Potassium Chloride Carbon Dioxide 9 L* BUN 45 H Creatinine 1.7 H Glucose 1155 H* POC Glucose Lactic Acid Calcium 7.9 L Phosphorus 10.90 H D 5.30 H D Magnesium 3.10 H 2.90 H Iron TIBC Direct Bilirubin AST ALT Alkaline Phosphatase Total Creatine Kinase CK-MB (CK-2) C-Reactive Protein Total Protein Albumin Vitamin B12 Salicylates Acetaminophen Miscellaneous Test Crossmatch 03/30/19 03/30/19 03/30/19 03:15 03:30 04:23 WBC 18.0 H RBC 2.31 L Hgb 7.3 L Hct 23.8 L D MCV 103 H MCH MCHC RDW 17.1 H Plt Count [place] % (Auto) Lymph # Seg Neuts % (Manual) 79.0 H Lymphocytes % (Manual) Nucleated RBC % Seg Neutrophils # Man 14.2 H Lymphocytes # (Manual) Monocytes # (Manual) PT INR APTT D-Dimer POC ABG pH 7.251 L ABG pH POC ABG pCO2 POC ABG pO2 156 H ABG pO2 ABG HCO3 ABG O2 Saturation ABG Base Excess ABG Hemoglobin VBG pH Oxyhemoglobin Sodium Potassium Chloride Carbon Dioxide BUN Creatinine Glucose POC Glucose Lactic Acid Calcium Phosphorus Magnesium Iron TIBC Direct Bilirubin AST ALT Alkaline Phosphatase Total Creatine Kinase CK-MB (CK-2) C-Reactive Protein Total Protein Albumin Vitamin B12 Salicylates Acetaminophen Miscellaneous Test Crossmatch See Detail 03/30/19 03/30/19 03/30/19 05:26 05:26 10:38 WBC RBC Hgb Hct MCV MCH MCHC RDW Plt Count [place] % (Auto) Lymph # Seg Neuts % (Manual) Lymphocytes % (Manual) Nucleated RBC % Seg Neutrophils # Man Lymphocytes # (Manual) Monocytes # (Manual) PT INR APTT D-Dimer POC ABG pH ABG pH POC ABG pCO2 POC ABG pO2 ABG pO2 ABG HCO3 ABG O2 Saturation ABG Base Excess ABG Hemoglobin VBG pH Oxyhemoglobin Sodium 158 H D Potassium 3.5 L Chloride 109.3 H Carbon Dioxide 19 L D BUN 40 H Creatinine 1.5 H Glucose 760 H* POC Glucose 380 H Lactic Acid Calcium 7.3 L Phosphorus Magnesium 2.60 H Iron TIBC Direct Bilirubin AST 38678 H ALT 2156 H Alkaline Phosphatase 271 H Total Creatine Kinase 2465 H CK-MB (CK-2) 52.7 H C-Reactive Protein Total Protein 4.5 L Albumin 2.4 L Vitamin B12 Salicylates Acetaminophen Miscellaneous Test Crossmatch 03/30/19 03/30/19 03/30/19 11:08 12:25 12:57 WBC RBC Hgb Hct MCV MCH MCHC RDW Plt Count [place] % (Auto) Lymph # Seg Neuts % (Manual) Lymphocytes % (Manual) Nucleated RBC % Seg Neutrophils # Man Lymphocytes # (Manual) Monocytes # (Manual) PT INR APTT D-Dimer POC ABG pH ABG pH POC ABG pCO2 POC ABG pO2 ABG pO2 ABG HCO3 ABG O2 Saturation ABG Base Excess ABG Hemoglobin VBG pH Oxyhemoglobin Sodium 156 H Potassium 3.2 L Chloride 116.4 H Carbon Dioxide 21 L BUN 37 H Creatinine Glucose 162 H POC Glucose 263 H 196 H Lactic Acid Calcium 7.2 L Phosphorus Magnesium Iron TIBC Direct Bilirubin AST ALT Alkaline Phosphatase Total Creatine Kinase CK-MB (CK-2) C-Reactive Protein Total Protein Albumin Vitamin B12 Salicylates Acetaminophen Miscellaneous Test Crossmatch 03/30/19 03/30/19 03/30/19 12:57 12:57 12:57 WBC RBC Hgb Hct MCV MCH MCHC RDW Plt Count [place] % (Auto) Lymph # Seg Neuts % (Manual) Lymphocytes % (Manual) Nucleated RBC % Seg Neutrophils # Man Lymphocytes # (Manual) Monocytes # (Manual) PT 21.0 H INR 1.86 H APTT D-Dimer POC ABG pH ABG pH POC ABG pCO2 POC ABG pO2 ABG pO2 ABG HCO3 ABG O2 Saturation ABG Base Excess ABG Hemoglobin VBG pH Oxyhemoglobin Sodium Potassium Chloride Carbon Dioxide BUN Creatinine Glucose POC Glucose Lactic Acid 9.00 H* Calcium Phosphorus Magnesium Iron TIBC Direct Bilirubin AST ALT Alkaline Phosphatase Total Creatine Kinase CK-MB (CK-2) C-Reactive Protein 2.40 H Total Protein Albumin Vitamin B12 Salicylates Acetaminophen Miscellaneous Test Crossmatch 03/30/19 03/30/19 03/30/19 13:23 14:00 14:47 WBC RBC Hgb Hct MCV MCH MCHC RDW Plt Count [place] % (Auto) Lymph # Seg Neuts % (Manual) Lymphocytes % (Manual) Nucleated RBC % Seg Neutrophils # Man Lymphocytes # (Manual) Monocytes # (Manual) PT INR APTT D-Dimer POC ABG pH ABG pH POC ABG pCO2 POC ABG pO2 ABG pO2 ABG HCO3 ABG O2 Saturation ABG Base Excess ABG Hemoglobin VBG pH Oxyhemoglobin Sodium Potassium Chloride Carbon Dioxide BUN Creatinine Glucose POC Glucose 176 H 245 H Lactic Acid Calcium Phosphorus Magnesium Iron TIBC Direct Bilirubin AST ALT Alkaline Phosphatase Total Creatine Kinase CK-MB (CK-2) C-Reactive Protein Total Protein Albumin Vitamin B12 Salicylates Acetaminophen Miscellaneous Test Flexitest 1 H Crossmatch 03/30/19 03/30/19 03/30/19 16:11 17:11 17:46 WBC RBC Hgb Hct MCV MCH MCHC RDW Plt Count [place] % (Auto) Lymph # Seg Neuts % (Manual) Lymphocytes % (Manual) Nucleated RBC % Seg Neutrophils # Man Lymphocytes # (Manual) Monocytes # (Manual) PT INR APTT D-Dimer POC ABG pH ABG pH POC ABG pCO2 POC ABG pO2 ABG pO2 ABG HCO3 ABG O2 Saturation ABG Base Excess ABG Hemoglobin VBG pH Oxyhemoglobin Sodium Potassium Chloride Carbon Dioxide BUN Creatinine Glucose POC Glucose 181 H 167 H 125 H Lactic Acid Calcium Phosphorus Magnesium Iron TIBC Direct Bilirubin AST ALT Alkaline Phosphatase Total Creatine Kinase CK-MB (CK-2) C-Reactive Protein Total Protein Albumin Vitamin B12 Salicylates Acetaminophen Miscellaneous Test Crossmatch 03/30/19 03/30/19 03/30/19 18:59 21:31 22:19 WBC RBC Hgb Hct MCV MCH MCHC RDW Plt Count [place] % (Auto) Lymph # Seg Neuts % (Manual) Lymphocytes % (Manual) Nucleated RBC % Seg Neutrophils # Man Lymphocytes # (Manual) Monocytes # (Manual) PT INR APTT D-Dimer POC ABG pH ABG pH POC ABG pCO2 POC ABG pO2 ABG pO2 ABG HCO3 ABG O2 Saturation ABG Base Excess ABG Hemoglobin VBG pH Oxyhemoglobin Sodium Potassium Chloride Carbon Dioxide BUN Creatinine Glucose POC Glucose 140 H 166 H 115 H Lactic Acid Calcium Phosphorus Magnesium Iron TIBC Direct Bilirubin AST ALT Alkaline Phosphatase Total Creatine Kinase CK-MB (CK-2) C-Reactive Protein Total Protein Albumin Vitamin B12 Salicylates Acetaminophen Miscellaneous Test Crossmatch 03/30/19 03/30/19 03/30/19 23:13 Unknown Unknown WBC RBC Hgb Hct MCV MCH MCHC RDW Plt Count [place] % (Auto) Lymph # Seg Neuts % (Manual) Lymphocytes % (Manual) Nucleated RBC % Seg Neutrophils # Man Lymphocytes # (Manual) Monocytes # (Manual) PT INR APTT D-Dimer POC ABG pH ABG pH POC ABG pCO2 POC ABG pO2 ABG pO2 47.8 L ABG HCO3 18.8 L ABG O2 Saturation 83.8 L ABG Base Excess -5.4 L ABG Hemoglobin 6.8 L VBG pH Oxyhemoglobin 81.8 L Sodium 157 H Potassium 3.3 L Chloride 117.9 H Carbon Dioxide 20 L BUN 36 H Creatinine Glucose 150 H POC Glucose 112 H Lactic Acid Calcium 7.2 L Phosphorus Magnesium Iron TIBC Direct Bilirubin AST ALT Alkaline Phosphatase Total Creatine Kinase CK-MB (CK-2) C-Reactive Protein Total Protein Albumin Vitamin B12 Salicylates Acetaminophen Miscellaneous Test Crossmatch 03/30/19 03/30/19 03/31/19 Unknown Unknown 00:03 WBC RBC Hgb Hct MCV MCH MCHC RDW Plt Count [place] % (Auto) Lymph # Seg Neuts % (Manual) Lymphocytes % (Manual) Nucleated RBC % Seg Neutrophils # Man Lymphocytes # (Manual) Monocytes # (Manual) PT INR APTT D-Dimer POC ABG pH ABG pH POC ABG pCO2 POC ABG pO2 ABG pO2 ABG HCO3 ABG O2 Saturation ABG Base Excess ABG Hemoglobin VBG pH Oxyhemoglobin Sodium Potassium Chloride Carbon Dioxide BUN Creatinine Glucose POC Glucose 188 H Lactic Acid Calcium Phosphorus Magnesium Iron TIBC Direct Bilirubin AST ALT Alkaline Phosphatase Total Creatine Kinase CK-MB (CK-2) C-Reactive Protein Total Protein Albumin Vitamin B12 Salicylates 0.8 L Acetaminophen < 5.0 L Miscellaneous Test Crossmatch 03/31/19 03/31/19 03/31/19 01:18 03:07 03:50 WBC RBC Hgb Hct MCV MCH MCHC RDW Plt Count [place] % (Auto) Lymph # Seg Neuts % (Manual) Lymphocytes % (Manual) Nucleated RBC % Seg Neutrophils # Man Lymphocytes # (Manual) Monocytes # (Manual) PT INR APTT D-Dimer POC ABG pH ABG pH 7.525 H POC ABG pCO2 POC ABG pO2 ABG pO2 178.0 H ABG HCO3 19.5 L ABG O2 Saturation 99.2 H ABG Base Excess -3.1 L ABG Hemoglobin 5.8 L VBG pH Oxyhemoglobin Sodium Potassium Chloride Carbon Dioxide BUN Creatinine Glucose POC Glucose 114 H 107 H Lactic Acid Calcium Phosphorus Magnesium Iron TIBC Direct Bilirubin AST ALT Alkaline Phosphatase Total Creatine Kinase CK-MB (CK-2) C-Reactive Protein Total Protein Albumin Vitamin B12 Salicylates Acetaminophen Miscellaneous Test Crossmatch 03/31/19 03/31/19 03/31/19 03:51 03:51 04:05 WBC RBC 1.89 L Hgb 6.1 L Hct 18.2 L* MCV MCH MCHC RDW 17.7 H Plt Count 89 L Hall % (Auto) Lymph # Seg Neuts % (Manual) 86.0 H Lymphocytes % (Manual) 10.0 L Nucleated RBC % 1.0 H Seg Neutrophils # Man Lymphocytes # (Manual) 0.7 L Monocytes # (Manual) PT INR APTT D-Dimer POC ABG pH ABG pH POC ABG pCO2 POC ABG pO2 ABG pO2 ABG HCO3 ABG O2 Saturation ABG Base Excess ABG Hemoglobin VBG pH Oxyhemoglobin Sodium 151 H Potassium 3.2 L Chloride 119.4 H Carbon Dioxide 17 L BUN 35 H Creatinine Glucose 139 H POC Glucose 153 H Lactic Acid Calcium 7.1 L Phosphorus Magnesium Iron TIBC Direct Bilirubin AST ALT Alkaline Phosphatase Total Creatine Kinase CK-MB (CK-2) C-Reactive Protein Total Protein Albumin Vitamin B12 Salicylates Acetaminophen Miscellaneous Test Crossmatch 03/31/19 03/31/19 03/31/19 05:05 05:35 06:23 WBC RBC Hgb Hct MCV MCH MCHC RDW Plt Count [place] % (Auto) Lymph # Seg Neuts % (Manual) Lymphocytes % (Manual) Nucleated RBC % Seg Neutrophils # Man Lymphocytes # (Manual) Monocytes # (Manual) PT INR APTT D-Dimer POC ABG pH ABG pH POC ABG pCO2 POC ABG pO2 ABG pO2 ABG HCO3 ABG O2 Saturation ABG Base Excess ABG Hemoglobin VBG pH Oxyhemoglobin Sodium Potassium Chloride Carbon Dioxide BUN Creatinine Glucose POC Glucose 176 H 133 H Lactic Acid 3.20 H* Calcium Phosphorus Magnesium Iron TIBC Direct Bilirubin AST ALT Alkaline Phosphatase Total Creatine Kinase CK-MB (CK-2) C-Reactive Protein Total Protein Albumin Vitamin B12 Salicylates Acetaminophen Miscellaneous Test Crossmatch 03/31/19 03/31/19 03/31/19 07:50 07:51 08:20 WBC RBC Hgb Hct MCV MCH MCHC RDW Plt Count [place] % (Auto) Lymph # Seg Neuts % (Manual) Lymphocytes % (Manual) Nucleated RBC % Seg Neutrophils # Man Lymphocytes # (Manual) Monocytes # (Manual) PT INR APTT D-Dimer POC ABG pH ABG pH POC ABG pCO2 POC ABG pO2 ABG pO2 ABG HCO3 ABG O2 Saturation ABG Base Excess ABG Hemoglobin VBG pH Oxyhemoglobin Sodium Potassium Chloride Carbon Dioxide BUN Creatinine Glucose POC Glucose 135 H Lactic Acid 3.30 H* Calcium Phosphorus Magnesium Iron 26 L TIBC 193 L Direct Bilirubin AST ALT Alkaline Phosphatase Total Creatine Kinase CK-MB (CK-2) C-Reactive Protein Total Protein Albumin Vitamin B12 Salicylates Acetaminophen Miscellaneous Test Crossmatch 03/31/19 03/31/19 03/31/19 08:20 08:20 09:06 WBC RBC Hgb Hct MCV MCH MCHC RDW Plt Count [place] % (Auto) Lymph # Seg Neuts % (Manual) Lymphocytes % (Manual) Nucleated RBC % Seg Neutrophils # Man Lymphocytes # (Manual) Monocytes # (Manual) PT INR APTT D-Dimer POC ABG pH ABG pH POC ABG pCO2 POC ABG pO2 ABG pO2 ABG HCO3 ABG O2 Saturation ABG Base Excess ABG Hemoglobin VBG pH Oxyhemoglobin Sodium 153 H Potassium 3.0 L Chloride 118.9 H Carbon Dioxide 18 L BUN 37 H Creatinine Glucose 132 H POC Glucose 145 H Lactic Acid Calcium 7.1 L Phosphorus Magnesium Iron TIBC Direct Bilirubin AST ALT Alkaline Phosphatase Total Creatine Kinase CK-MB (CK-2) C-Reactive Protein Total Protein Albumin Vitamin B12 > 2000 H Salicylates Acetaminophen Miscellaneous Test Crossmatch 03/31/19 03/31/19 03/31/19 10:47 11:49 13:04 WBC RBC Hgb Hct MCV MCH MCHC RDW Plt Count [place] % (Auto) Lymph # Seg Neuts % (Manual) Lymphocytes % (Manual) Nucleated RBC % Seg Neutrophils # Man Lymphocytes # (Manual) Monocytes # (Manual) PT INR APTT D-Dimer POC ABG pH ABG pH POC ABG pCO2 POC ABG pO2 ABG pO2 ABG HCO3 ABG O2 Saturation ABG Base Excess ABG Hemoglobin VBG pH Oxyhemoglobin Sodium Potassium Chloride Carbon Dioxide BUN Creatinine Glucose POC Glucose 153 H 174 H 214 H Lactic Acid Calcium Phosphorus Magnesium Iron TIBC Direct Bilirubin AST ALT Alkaline Phosphatase Total Creatine Kinase CK-MB (CK-2) C-Reactive Protein Total Protein Albumin Vitamin B12 Salicylates Acetaminophen Miscellaneous Test Crossmatch 03/31/19 03/31/19 03/31/19 13:42 15:08 16:08 WBC RBC Hgb Hct MCV MCH MCHC RDW Plt Count [place] % (Auto) Lymph # Seg Neuts % (Manual) Lymphocytes % (Manual) Nucleated RBC % Seg Neutrophils # Man Lymphocytes # (Manual) Monocytes # (Manual) PT INR APTT D-Dimer POC ABG pH ABG pH POC ABG pCO2 POC ABG pO2 ABG pO2 ABG HCO3 ABG O2 Saturation ABG Base Excess ABG Hemoglobin VBG pH Oxyhemoglobin Sodium Potassium Chloride Carbon Dioxide BUN Creatinine Glucose POC Glucose 186 H 136 H 150 H Lactic Acid Calcium Phosphorus Magnesium Iron TIBC Direct Bilirubin AST ALT Alkaline Phosphatase Total Creatine Kinase CK-MB (CK-2) C-Reactive Protein Total Protein Albumin Vitamin B12 Salicylates Acetaminophen Miscellaneous Test Crossmatch 03/31/19 03/31/19 03/31/19 17:11 17:30 17:30 WBC RBC Hgb 7.7 L Hct 23.0 L MCV MCH MCHC RDW Plt Count [place] % (Auto) Lymph # Seg Neuts % (Manual) Lymphocytes % (Manual) Nucleated RBC % Seg Neutrophils # Man Lymphocytes # (Manual) Monocytes # (Manual) PT INR APTT D-Dimer POC ABG pH ABG pH POC ABG pCO2 POC ABG pO2 ABG pO2 ABG HCO3 ABG O2 Saturation ABG Base Excess ABG Hemoglobin VBG pH Oxyhemoglobin Sodium 153 H Potassium 3.5 L Chloride 119.3 H Carbon Dioxide 20 L BUN 34 H Creatinine Glucose 162 H POC Glucose 140 H Lactic Acid Calcium 7.6 L Phosphorus Magnesium Iron TIBC Direct Bilirubin AST ALT Alkaline Phosphatase Total Creatine Kinase CK-MB (CK-2) C-Reactive Protein Total Protein Albumin Vitamin B12 Salicylates Acetaminophen Miscellaneous Test Crossmatch 03/31/19 03/31/19 03/31/19 17:59 18:58 20:28 WBC RBC Hgb Hct MCV MCH MCHC RDW Plt Count [place] % (Auto) Lymph # Seg Neuts % (Manual) Lymphocytes % (Manual) Nucleated RBC % Seg Neutrophils # Man Lymphocytes # (Manual) Monocytes # (Manual) PT INR APTT D-Dimer POC ABG pH ABG pH POC ABG pCO2 POC ABG pO2 ABG pO2 ABG HCO3 ABG O2 Saturation ABG Base Excess ABG Hemoglobin VBG pH Oxyhemoglobin Sodium Potassium Chloride Carbon Dioxide BUN Creatinine Glucose POC Glucose 156 H 152 H 138 H Lactic Acid Calcium Phosphorus Magnesium Iron TIBC Direct Bilirubin AST ALT Alkaline Phosphatase Total Creatine Kinase CK-MB (CK-2) C-Reactive Protein Total Protein Albumin Vitamin B12 Salicylates Acetaminophen Miscellaneous Test Crossmatch 03/31/19 03/31/19 03/31/19 21:09 22:15 23:10 WBC RBC Hgb Hct MCV MCH MCHC RDW Plt Count [place] % (Auto) Lymph # Seg Neuts % (Manual) Lymphocytes % (Manual) Nucleated RBC % Seg Neutrophils # Man Lymphocytes # (Manual) Monocytes # (Manual) PT INR APTT D-Dimer POC ABG pH ABG pH POC ABG pCO2 POC ABG pO2 ABG pO2 ABG HCO3 ABG O2 Saturation ABG Base Excess ABG Hemoglobin VBG pH Oxyhemoglobin Sodium Potassium Chloride Carbon Dioxide BUN Creatinine Glucose POC Glucose 136 H 137 H 148 H Lactic Acid Calcium Phosphorus Magnesium Iron TIBC Direct Bilirubin AST ALT Alkaline Phosphatase Total Creatine Kinase CK-MB (CK-2) C-Reactive Protein Total Protein Albumin Vitamin B12 Salicylates Acetaminophen Miscellaneous Test Crossmatch 04/01/19 04/01/19 04/01/19 00:05 01:17 02:11 WBC RBC Hgb Hct MCV MCH MCHC RDW Plt Count [place] % (Auto) Lymph # Seg Neuts % (Manual) Lymphocytes % (Manual) Nucleated RBC % Seg Neutrophils # Man Lymphocytes # (Manual) Monocytes # (Manual) PT INR APTT D-Dimer POC ABG pH ABG pH POC ABG pCO2 POC ABG pO2 ABG pO2 ABG HCO3 ABG O2 Saturation ABG Base Excess ABG Hemoglobin VBG pH Oxyhemoglobin Sodium Potassium Chloride Carbon Dioxide BUN Creatinine Glucose POC Glucose 143 H 151 H 155 H Lactic Acid Calcium Phosphorus Magnesium Iron TIBC Direct Bilirubin AST ALT Alkaline Phosphatase Total Creatine Kinase CK-MB (CK-2) C-Reactive Protein Total Protein Albumin Vitamin B12 Salicylates Acetaminophen Miscellaneous Test Crossmatch 04/01/19 04/01/19 04/01/19 03:12 04:03 04:16 WBC RBC Hgb Hct MCV MCH MCHC RDW Plt Count [place] % (Auto) Lymph # Seg Neuts % (Manual) Lymphocytes % (Manual) Nucleated RBC % Seg Neutrophils # Man Lymphocytes # (Manual) Monocytes # (Manual) PT INR APTT D-Dimer POC ABG pH ABG pH POC ABG pCO2 POC ABG pO2 ABG pO2 ABG HCO3 ABG O2 Saturation ABG Base Excess ABG Hemoglobin VBG pH Oxyhemoglobin Sodium Potassium Chloride Carbon Dioxide BUN Creatinine Glucose POC Glucose 140 H 143 H 142 H Lactic Acid Calcium Phosphorus Magnesium Iron TIBC Direct Bilirubin AST ALT Alkaline Phosphatase Total Creatine Kinase CK-MB (CK-2) C-Reactive Protein Total Protein Albumin Vitamin B12 Salicylates Acetaminophen Miscellaneous Test Crossmatch 04/01/19 04/01/19 04/01/19 05:01 05:01 05:08 WBC RBC 2.05 L Hgb 6.8 L Hct 20.5 L MCV 100 H MCH 33 H MCHC RDW 17.7 H Plt Count 53 L [place] % (Auto) Lymph # Seg Neuts % (Manual) 71.0 H Lymphocytes % (Manual) Nucleated RBC % Seg Neutrophils # Man Lymphocytes # (Manual) Monocytes # (Manual) PT INR APTT D-Dimer POC ABG pH ABG pH POC ABG pCO2 POC ABG pO2 ABG pO2 ABG HCO3 ABG O2 Saturation ABG Base Excess ABG Hemoglobin VBG pH Oxyhemoglobin Sodium Potassium Chloride Carbon Dioxide BUN Creatinine Glucose POC Glucose 119 H Lactic Acid Calcium Phosphorus Magnesium Iron TIBC Direct Bilirubin 0.3 H AST 4601 H ALT 1542 H Alkaline Phosphatase 185 H Total Creatine Kinase CK-MB (CK-2) C-Reactive Protein Total Protein 3.8 L Albumin 1.6 L Vitamin B12 Salicylates Acetaminophen Miscellaneous Test Crossmatch 04/01/19 04/01/19 04/01/19 05:23 06:37 08:15 WBC RBC Hgb Hct MCV MCH MCHC RDW Plt Count [place] % (Auto) Lymph # Seg Neuts % (Manual) Lymphocytes % (Manual) Nucleated RBC % Seg Neutrophils # Man Lymphocytes # (Manual) Monocytes # (Manual) PT INR APTT D-Dimer POC ABG pH ABG pH POC ABG pCO2 POC ABG pO2 ABG pO2 ABG HCO3 ABG O2 Saturation ABG Base Excess ABG Hemoglobin VBG pH Oxyhemoglobin Sodium Potassium Chloride Carbon Dioxide BUN Creatinine Glucose POC Glucose 115 H 124 H 138 H Lactic Acid Calcium Phosphorus Magnesium Iron TIBC Direct Bilirubin AST ALT Alkaline Phosphatase Total Creatine Kinase CK-MB (CK-2) C-Reactive Protein Total Protein Albumin Vitamin B12 Salicylates Acetaminophen Miscellaneous Test Crossmatch 04/01/19 04/01/19 04/01/19 09:50 10:10 10:31 WBC RBC Hgb 6.5 L Hct 19.2 L* MCV MCH MCHC RDW Plt Count [place] % (Auto) Lymph # Seg Neuts % (Manual) Lymphocytes % (Manual) Nucleated RBC % Seg Neutrophils # Man Lymphocytes # (Manual) Monocytes # (Manual) PT INR APTT D-Dimer POC ABG pH ABG pH POC ABG pCO2 POC ABG pO2 ABG pO2 ABG HCO3 ABG O2 Saturation ABG Base Excess ABG Hemoglobin VBG pH Oxyhemoglobin Sodium 149 H Potassium 3.5 L Chloride 119.9 H Carbon Dioxide 21 L BUN 33 H Creatinine 0.5 L Glucose 142 H POC Glucose 185 H Lactic Acid Calcium 7.3 L Phosphorus Magnesium Iron TIBC Direct Bilirubin AST 3686 H ALT 1440 H Alkaline Phosphatase 185 H Total Creatine Kinase CK-MB (CK-2) C-Reactive Protein Total Protein 3.7 L Albumin 1.8 L Vitamin B12 Salicylates Acetaminophen Miscellaneous Test Crossmatch 04/01/19 04/01/19 04/01/19 11:35 13:05 14:35 WBC RBC Hgb Hct MCV MCH MCHC RDW Plt Count [place] % (Auto) Lymph # Seg Neuts % (Manual) Lymphocytes % (Manual) Nucleated RBC % Seg Neutrophils # Man Lymphocytes # (Manual) Monocytes # (Manual) PT INR APTT D-Dimer POC ABG pH ABG pH POC ABG pCO2 POC ABG pO2 ABG pO2 ABG HCO3 ABG O2 Saturation ABG Base Excess ABG Hemoglobin VBG pH Oxyhemoglobin Sodium Potassium Chloride Carbon Dioxide BUN Creatinine Glucose POC Glucose 201 H 169 H 134 H Lactic Acid Calcium Phosphorus Magnesium Iron TIBC Direct Bilirubin AST ALT Alkaline Phosphatase Total Creatine Kinase CK-MB (CK-2) C-Reactive Protein Total Protein Albumin Vitamin B12 Salicylates Acetaminophen Miscellaneous Test Crossmatch 04/01/19 04/01/19 04/01/19 17:13 17:14 18:30 WBC RBC Hgb Hct MCV MCH MCHC RDW Plt Count [place] % (Auto) Lymph # Seg Neuts % (Manual) Lymphocytes % (Manual) Nucleated RBC % Seg Neutrophils # Man Lymphocytes # (Manual) Monocytes # (Manual) PT INR APTT D-Dimer 5203.68 H POC ABG pH ABG pH POC ABG pCO2 POC ABG pO2 ABG pO2 ABG HCO3 ABG O2 Saturation ABG Base Excess ABG Hemoglobin VBG pH Oxyhemoglobin Sodium Potassium Chloride Carbon Dioxide BUN Creatinine Glucose POC Glucose 69 L 128 H Lactic Acid Calcium Phosphorus Magnesium Iron TIBC Direct Bilirubin AST ALT Alkaline Phosphatase Total Creatine Kinase CK-MB (CK-2) C-Reactive Protein Total Protein Albumin Vitamin B12 Salicylates Acetaminophen Miscellaneous Test Crossmatch 04/01/19 04/01/19 04/02/19 22:50 Unknown 03:40 WBC RBC Hgb Hct MCV MCH MCHC RDW Plt Count [place] % (Auto) Lymph # Seg Neuts % (Manual) Lymphocytes % (Manual) Nucleated RBC % Seg Neutrophils # Man Lymphocytes # (Manual) Monocytes # (Manual) PT INR APTT D-Dimer POC ABG pH ABG pH POC ABG pCO2 POC ABG pO2 ABG pO2 78.3 L 142.8 H ABG HCO3 15.5 L ABG O2 Saturation ABG Base Excess -3.5 L -8.2 L ABG Hemoglobin 6.8 L 8.2 L VBG pH Oxyhemoglobin 94.3 L Sodium Potassium Chloride Carbon Dioxide BUN Creatinine Glucose POC Glucose 342 H Lactic Acid Calcium Phosphorus Magnesium Iron TIBC Direct Bilirubin AST ALT Alkaline Phosphatase Total Creatine Kinase CK-MB (CK-2) C-Reactive Protein Total Protein Albumin Vitamin B12 Salicylates Acetaminophen Miscellaneous Test Crossmatch 04/02/19 04/02/19 04/02/19 03:49 06:50 07:48 WBC RBC 2.65 L Hgb 8.6 L Hct 25.1 L MCV MCH MCHC RDW 17.6 H Plt Count 48 L [place] % (Auto) Lymph # Seg Neuts % (Manual) Lymphocytes % (Manual) Nucleated RBC % Seg Neutrophils # Man Lymphocytes # (Manual) Monocytes # (Manual) PT INR APTT D-Dimer POC ABG pH ABG pH POC ABG pCO2 POC ABG pO2 ABG pO2 ABG HCO3 ABG O2 Saturation ABG Base Excess ABG Hemoglobin VBG pH Oxyhemoglobin Sodium Potassium Chloride Carbon Dioxide BUN Creatinine Glucose POC Glucose 247 H 200 H Lactic Acid Calcium Phosphorus Magnesium Iron TIBC Direct Bilirubin AST ALT Alkaline Phosphatase Total Creatine Kinase CK-MB (CK-2) C-Reactive Protein Total Protein Albumin Vitamin B12 Salicylates Acetaminophen Miscellaneous Test Crossmatch 04/02/19 04/02/19 04/02/19 07:48 11:18 14:07 WBC RBC Hgb Hct MCV MCH MCHC RDW Plt Count [place] % (Auto) Lymph # Seg Neuts % (Manual) Lymphocytes % (Manual) Nucleated RBC % Seg Neutrophils # Man Lymphocytes # (Manual) Monocytes # (Manual) PT INR APTT D-Dimer POC ABG pH ABG pH POC ABG pCO2 POC ABG pO2 ABG pO2 ABG HCO3 ABG O2 Saturation ABG Base Excess ABG Hemoglobin VBG pH Oxyhemoglobin Sodium Potassium 3.5 L Chloride 115.7 H Carbon Dioxide 19 L BUN 29 H Creatinine 0.5 L Glucose 159 H POC Glucose 154 H 149 H Lactic Acid Calcium 7.5 L Phosphorus Magnesium Iron TIBC Direct Bilirubin AST 1418 H ALT 1134 H Alkaline Phosphatase 242 H Total Creatine Kinase CK-MB (CK-2) C-Reactive Protein Total Protein 4.2 L Albumin 2.1 L Vitamin B12 Salicylates Acetaminophen Miscellaneous Test Crossmatch 04/02/19 04/02/19 04/02/19 18:09 19:46 23:05 WBC RBC Hgb Hct MCV MCH MCHC RDW Plt Count [place] % (Auto) Lymph # Seg Neuts % (Manual) Lymphocytes % (Manual) Nucleated RBC % Seg Neutrophils # Man Lymphocytes # (Manual) Monocytes # (Manual) PT INR APTT D-Dimer POC ABG pH ABG pH POC ABG pCO2 POC ABG pO2 ABG pO2 ABG HCO3 ABG O2 Saturation ABG Base Excess ABG Hemoglobin VBG pH Oxyhemoglobin Sodium Potassium Chloride Carbon Dioxide BUN Creatinine Glucose POC Glucose 188 H 209 H 247 H Lactic Acid Calcium Phosphorus Magnesium Iron TIBC Direct Bilirubin AST ALT Alkaline Phosphatase Total Creatine Kinase CK-MB (CK-2) C-Reactive Protein Total Protein Albumin Vitamin B12 Salicylates Acetaminophen Miscellaneous Test Crossmatch 04/03/19 04/03/19 04/03/19 02:58 03:40 03:40 WBC RBC 2.87 L Hgb 9.3 L Hct 27.0 L MCV MCH MCHC RDW 17.2 H Plt Count 65 L [place] % (Auto) 9.8 H Lymph # 1.1 L Seg Neuts % (Manual) Lymphocytes % (Manual) Nucleated RBC % Seg Neutrophils # Man Lymphocytes # (Manual) Monocytes # (Manual) PT INR APTT D-Dimer POC ABG pH ABG pH POC ABG pCO2 POC ABG pO2 ABG pO2 ABG HCO3 ABG O2 Saturation ABG Base Excess ABG Hemoglobin VBG pH Oxyhemoglobin Sodium 147 H Potassium 3.5 L Chloride 116.7 H Carbon Dioxide 18 L BUN Creatinine 0.4 L Glucose 150 H POC Glucose 166 H Lactic Acid Calcium 8.1 L Phosphorus 2.20 L Magnesium Iron TIBC Direct Bilirubin AST 594 H ALT 861 H Alkaline Phosphatase 299 H Total Creatine Kinase CK-MB (CK-2) C-Reactive Protein Total Protein 4.4 L Albumin 2.1 L Vitamin B12 Salicylates Acetaminophen Miscellaneous Test Crossmatch 04/03/19 04/03/19 04/03/19 05:35 07:02 08:23 WBC RBC Hgb Hct MCV MCH MCHC RDW Plt Count [place] % (Auto) Lymph # Seg Neuts % (Manual) Lymphocytes % (Manual) Nucleated RBC % Seg Neutrophils # Man Lymphocytes # (Manual) Monocytes # (Manual) PT INR APTT D-Dimer POC ABG pH ABG pH POC ABG pCO2 POC ABG pO2 ABG pO2 97.7 H ABG HCO3 19.3 L ABG O2 Saturation ABG Base Excess -5.0 L ABG Hemoglobin 8.0 L VBG pH Oxyhemoglobin Sodium Potassium Chloride Carbon Dioxide BUN Creatinine Glucose POC Glucose 135 H 132 H Lactic Acid Calcium Phosphorus Magnesium Iron TIBC Direct Bilirubin AST ALT Alkaline Phosphatase Total Creatine Kinase CK-MB (CK-2) C-Reactive Protein Total Protein Albumin Vitamin B12 Salicylates Acetaminophen Miscellaneous Test Crossmatch 04/03/19 04/03/19 04/03/19 11:58 15:11 17:53 WBC RBC Hgb Hct MCV MCH MCHC RDW Plt Count [place] % (Auto) Lymph # Seg Neuts % (Manual) Lymphocytes % (Manual) Nucleated RBC % Seg Neutrophils # Man Lymphocytes # (Manual) Monocytes # (Manual) PT INR APTT D-Dimer POC ABG pH ABG pH POC ABG pCO2 POC ABG pO2 ABG pO2 ABG HCO3 ABG O2 Saturation ABG Base Excess ABG Hemoglobin VBG pH Oxyhemoglobin Sodium Potassium Chloride Carbon Dioxide BUN Creatinine Glucose POC Glucose 179 H 213 H 223 H Lactic Acid Calcium Phosphorus Magnesium Iron TIBC Direct Bilirubin AST ALT Alkaline Phosphatase Total Creatine Kinase CK-MB (CK-2) C-Reactive Protein Total Protein Albumin Vitamin B12 Salicylates Acetaminophen Miscellaneous Test Crossmatch 04/03/19 04/04/19 04/04/19 23:06 02:36 06:41 WBC RBC Hgb Hct MCV MCH MCHC RDW Plt Count [place] % (Auto) Lymph # Seg Neuts % (Manual) Lymphocytes % (Manual) Nucleated RBC % Seg Neutrophils # Man Lymphocytes # (Manual) Monocytes # (Manual) PT INR APTT D-Dimer POC ABG pH ABG pH POC ABG pCO2 POC ABG pO2 ABG pO2 ABG HCO3 ABG O2 Saturation ABG Base Excess ABG Hemoglobin VBG pH Oxyhemoglobin Sodium Potassium Chloride Carbon Dioxide BUN Creatinine Glucose POC Glucose 189 H 157 H 131 H Lactic Acid Calcium Phosphorus Magnesium Iron TIBC Direct Bilirubin AST ALT Alkaline Phosphatase Total Creatine Kinase CK-MB (CK-2) C-Reactive Protein Total Protein Albumin Vitamin B12 Salicylates Acetaminophen Miscellaneous Test Crossmatch 04/04/19 04/04/19 04/04/19 11:42 15:45 18:21 WBC RBC Hgb Hct MCV MCH MCHC RDW Plt Count [place] % (Auto) Lymph # Seg Neuts % (Manual) Lymphocytes % (Manual) Nucleated RBC % Seg Neutrophils # Man Lymphocytes # (Manual) Monocytes # (Manual) PT INR APTT D-Dimer POC ABG pH ABG pH POC ABG pCO2 POC ABG pO2 ABG pO2 ABG HCO3 ABG O2 Saturation ABG Base Excess ABG Hemoglobin VBG pH Oxyhemoglobin Sodium Potassium Chloride Carbon Dioxide BUN Creatinine Glucose POC Glucose 233 H 236 H 255 H Lactic Acid Calcium Phosphorus Magnesium Iron TIBC Direct Bilirubin AST ALT Alkaline Phosphatase Total Creatine Kinase CK-MB (CK-2) C-Reactive Protein Total Protein Albumin Vitamin B12 Salicylates Acetaminophen Miscellaneous Test Crossmatch 04/04/19 04/05/19 04/05/19 21:21 03:06 06:05 WBC RBC 2.68 L Hgb 8.5 L Hct 26.3 L MCV 98 H MCH MCHC RDW 17.4 H Plt Count [place] % (Auto) Lymph # Seg Neuts % (Manual) Lymphocytes % (Manual) Nucleated RBC % Seg Neutrophils # Man Lymphocytes # (Manual) Monocytes # (Manual) PT INR APTT D-Dimer POC ABG pH ABG pH POC ABG pCO2 POC ABG pO2 ABG pO2 ABG HCO3 ABG O2 Saturation ABG Base Excess ABG Hemoglobin VBG pH Oxyhemoglobin Sodium Potassium Chloride Carbon Dioxide BUN Creatinine Glucose POC Glucose 132 H 161 H Lactic Acid Calcium Phosphorus Magnesium Iron TIBC Direct Bilirubin AST ALT Alkaline Phosphatase Total Creatine Kinase CK-MB (CK-2) C-Reactive Protein Total Protein Albumin Vitamin B12 Salicylates Acetaminophen Miscellaneous Test Crossmatch 04/05/19 04/05/19 04/05/19 06:05 06:49 10:23 WBC RBC Hgb Hct MCV MCH MCHC RDW Plt Count [place] % (Auto) Lymph # Seg Neuts % (Manual) Lymphocytes % (Manual) Nucleated RBC % Seg Neutrophils # Man Lymphocytes # (Manual) Monocytes # (Manual) PT INR APTT D-Dimer POC ABG pH ABG pH POC ABG pCO2 POC ABG pO2 ABG pO2 ABG HCO3 ABG O2 Saturation ABG Base Excess ABG Hemoglobin VBG pH Oxyhemoglobin Sodium Potassium Chloride 112.5 H Carbon Dioxide BUN Creatinine 0.2 L Glucose 237 H POC Glucose 283 H 296 H Lactic Acid Calcium 7.9 L Phosphorus Magnesium Iron TIBC Direct Bilirubin AST ALT Alkaline Phosphatase Total Creatine Kinase CK-MB (CK-2) C-Reactive Protein Total Protein Albumin Vitamin B12 Salicylates Acetaminophen Miscellaneous Test Crossmatch 04/05/19 04/05/19 04/05/19 14:46 18:19 20:35 WBC RBC Hgb Hct MCV MCH MCHC RDW Plt Count [place] % (Auto) Lymph # Seg Neuts % (Manual) Lymphocytes % (Manual) Nucleated RBC % Seg Neutrophils # Man Lymphocytes # (Manual) Monocytes # (Manual) PT INR APTT D-Dimer POC ABG pH ABG pH POC ABG pCO2 POC ABG pO2 ABG pO2 ABG HCO3 ABG O2 Saturation ABG Base Excess ABG Hemoglobin VBG pH Oxyhemoglobin Sodium Potassium Chloride Carbon Dioxide BUN Creatinine Glucose POC Glucose 225 H 259 H 236 H Lactic Acid Calcium Phosphorus Magnesium Iron TIBC Direct Bilirubin AST ALT Alkaline Phosphatase Total Creatine Kinase CK-MB (CK-2) C-Reactive Protein Total Protein Albumin Vitamin B12 Salicylates Acetaminophen Miscellaneous Test Crossmatch 04/05/19 04/06/19 04/06/19 23:11 00:06 03:14 WBC RBC Hgb Hct MCV MCH MCHC RDW Plt Count [place] % (Auto) Lymph # Seg Neuts % (Manual) Lymphocytes % (Manual) Nucleated RBC % Seg Neutrophils # Man Lymphocytes # (Manual) Monocytes # (Manual) PT INR APTT D-Dimer 4526.86 H POC ABG pH ABG pH POC ABG pCO2 POC ABG pO2 ABG pO2 ABG HCO3 ABG O2 Saturation ABG Base Excess ABG Hemoglobin VBG pH Oxyhemoglobin Sodium Potassium Chloride Carbon Dioxide BUN Creatinine Glucose POC Glucose 205 H 228 H Lactic Acid Calcium Phosphorus Magnesium Iron TIBC Direct Bilirubin AST ALT Alkaline Phosphatase Total Creatine Kinase CK-MB (CK-2) C-Reactive Protein Total Protein Albumin Vitamin B12 Salicylates Acetaminophen Miscellaneous Test Crossmatch 04/06/19 04/06/19 04/06/19 05:20 05:20 07:57 WBC 15.1 H RBC 2.90 L Hgb 9.1 L Hct 28.0 L MCV MCH MCHC RDW 17.3 H Plt Count [place] % (Auto) Lymph # Seg Neuts % (Manual) Lymphocytes % (Manual) Nucleated RBC % Seg Neutrophils # Man Lymphocytes # (Manual) Monocytes # (Manual) PT INR APTT D-Dimer POC ABG pH ABG pH POC ABG pCO2 POC ABG pO2 ABG pO2 ABG HCO3 ABG O2 Saturation ABG Base Excess ABG Hemoglobin VBG pH Oxyhemoglobin Sodium Potassium Chloride Carbon Dioxide BUN Creatinine 0.2 L Glucose 161 H POC Glucose 191 H Lactic Acid Calcium 8.0 L Phosphorus Magnesium Iron TIBC Direct Bilirubin AST ALT Alkaline Phosphatase Total Creatine Kinase CK-MB (CK-2) C-Reactive Protein Total Protein Albumin Vitamin B12 Salicylates Acetaminophen Miscellaneous Test Crossmatch 04/06/19 04/06/19 04/06/19 12:09 18:24 22:07 WBC RBC Hgb Hct MCV MCH MCHC RDW Plt Count [place] % (Auto) Lymph # Seg Neuts % (Manual) Lymphocytes % (Manual) Nucleated RBC % Seg Neutrophils # Man Lymphocytes # (Manual) Monocytes # (Manual) PT INR APTT D-Dimer POC ABG pH ABG pH POC ABG pCO2 POC ABG pO2 ABG pO2 ABG HCO3 ABG O2 Saturation ABG Base Excess ABG Hemoglobin VBG pH Oxyhemoglobin Sodium Potassium Chloride Carbon Dioxide BUN Creatinine Glucose POC Glucose 143 H 161 H 140 H Lactic Acid Calcium Phosphorus Magnesium Iron TIBC Direct Bilirubin AST ALT Alkaline Phosphatase Total Creatine Kinase CK-MB (CK-2) C-Reactive Protein Total Protein Albumin Vitamin B12 Salicylates Acetaminophen Miscellaneous Test Crossmatch 04/07/19 04/07/19 04/07/19 03:00 04:30 04:30 WBC 13.0 H RBC 2.65 L Hgb 8.3 L Hct 25.5 L MCV MCH MCHC RDW 17.0 H Plt Count [place] % (Auto) Lymph # Seg Neuts % (Manual) Lymphocytes % (Manual) Nucleated RBC % Seg Neutrophils # Man Lymphocytes # (Manual) Monocytes # (Manual) PT INR APTT D-Dimer POC ABG pH ABG pH POC ABG pCO2 POC ABG pO2 ABG pO2 ABG HCO3 ABG O2 Saturation ABG Base Excess ABG Hemoglobin VBG pH Oxyhemoglobin Sodium Potassium Chloride Carbon Dioxide BUN Creatinine 0.2 L Glucose 208 H POC Glucose 224 H Lactic Acid Calcium 7.7 L Phosphorus Magnesium Iron TIBC Direct Bilirubin AST ALT Alkaline Phosphatase Total Creatine Kinase CK-MB (CK-2) C-Reactive Protein Total Protein Albumin Vitamin B12 Salicylates Acetaminophen Miscellaneous Test Crossmatch 04/07/19 04/07/19 04/07/19 05:47 08:27 10:33 WBC RBC Hgb Hct MCV MCH MCHC RDW Plt Count [place] % (Auto) Lymph # Seg Neuts % (Manual) Lymphocytes % (Manual) Nucleated RBC % Seg Neutrophils # Man Lymphocytes # (Manual) Monocytes # (Manual) PT INR APTT D-Dimer POC ABG pH ABG pH POC ABG pCO2 POC ABG pO2 ABG pO2 ABG HCO3 ABG O2 Saturation ABG Base Excess ABG Hemoglobin VBG pH Oxyhemoglobin Sodium Potassium Chloride Carbon Dioxide BUN Creatinine Glucose POC Glucose 225 H 176 H 207 H Lactic Acid Calcium Phosphorus Magnesium Iron TIBC Direct Bilirubin AST ALT Alkaline Phosphatase Total Creatine Kinase CK-MB (CK-2) C-Reactive Protein Total Protein Albumin Vitamin B12 Salicylates Acetaminophen Miscellaneous Test Crossmatch 04/07/19 04/07/19 04/07/19 14:13 18:32 22:42 WBC RBC Hgb Hct MCV MCH MCHC RDW Plt Count [place] % (Auto) Lymph # Seg Neuts % (Manual) Lymphocytes % (Manual) Nucleated RBC % Seg Neutrophils # Man Lymphocytes # (Manual) Monocytes # (Manual) PT INR APTT D-Dimer POC ABG pH ABG pH POC ABG pCO2 POC ABG pO2 ABG pO2 ABG HCO3 ABG O2 Saturation ABG Base Excess ABG Hemoglobin VBG pH Oxyhemoglobin Sodium Potassium Chloride Carbon Dioxide BUN Creatinine Glucose POC Glucose 219 H 227 H 238 H Lactic Acid Calcium Phosphorus Magnesium Iron TIBC Direct Bilirubin AST ALT Alkaline Phosphatase Total Creatine Kinase CK-MB (CK-2) C-Reactive Protein Total Protein Albumin Vitamin B12 Salicylates Acetaminophen Miscellaneous Test Crossmatch 04/08/19 04/08/19 04/08/19 02:31 05:37 14:10 WBC RBC Hgb Hct MCV MCH MCHC RDW Plt Count [place] % (Auto) Lymph # Seg Neuts % (Manual) Lymphocytes % (Manual) Nucleated RBC % Seg Neutrophils # Man Lymphocytes # (Manual) Monocytes # (Manual) PT INR APTT D-Dimer POC ABG pH ABG pH POC ABG pCO2 POC ABG pO2 ABG pO2 ABG HCO3 ABG O2 Saturation ABG Base Excess ABG Hemoglobin VBG pH Oxyhemoglobin Sodium Potassium Chloride Carbon Dioxide BUN Creatinine Glucose POC Glucose 194 H 194 H 139 H Lactic Acid Calcium Phosphorus Magnesium Iron TIBC Direct Bilirubin AST ALT Alkaline Phosphatase Total Creatine Kinase CK-MB (CK-2) C-Reactive Protein Total Protein Albumin Vitamin B12 Salicylates Acetaminophen Miscellaneous Test Crossmatch 04/08/19 04/08/19 04/09/19 17:43 23:20 03:28 WBC RBC Hgb Hct MCV MCH MCHC RDW Plt Count [place] % (Auto) Lymph # Seg Neuts % (Manual) Lymphocytes % (Manual) Nucleated RBC % Seg Neutrophils # Man Lymphocytes # (Manual) Monocytes # (Manual) PT INR APTT D-Dimer POC ABG pH ABG pH POC ABG pCO2 POC ABG pO2 ABG pO2 ABG HCO3 ABG O2 Saturation ABG Base Excess ABG Hemoglobin VBG pH Oxyhemoglobin Sodium Potassium Chloride Carbon Dioxide BUN Creatinine Glucose POC Glucose 261 H 277 H 301 H Lactic Acid Calcium Phosphorus Magnesium Iron TIBC Direct Bilirubin AST ALT Alkaline Phosphatase Total Creatine Kinase CK-MB (CK-2) C-Reactive Protein Total Protein Albumin Vitamin B12 Salicylates Acetaminophen Miscellaneous Test Crossmatch 04/09/19 04/09/19 04/09/19 05:35 05:35 05:35 WBC RBC 2.78 L Hgb 9.0 L Hct 26.7 L MCV MCH MCHC RDW 17.0 H Plt Count [place] % (Auto) Lymph # Seg Neuts % (Manual) Lymphocytes % (Manual) Nucleated RBC % Seg Neutrophils # Man Lymphocytes # (Manual) Monocytes # (Manual) PT INR APTT D-Dimer POC ABG pH ABG pH POC ABG pCO2 POC ABG pO2 ABG pO2 ABG HCO3 ABG O2 Saturation ABG Base Excess ABG Hemoglobin VBG pH Oxyhemoglobin Sodium Potassium Chloride Carbon Dioxide 31 H BUN Creatinine 0.2 L Glucose 218 H POC Glucose 240 H Lactic Acid Calcium Phosphorus Magnesium Iron TIBC Direct Bilirubin AST ALT Alkaline Phosphatase Total Creatine Kinase CK-MB (CK-2) C-Reactive Protein Total Protein Albumin Vitamin B12 Salicylates Acetaminophen Miscellaneous Test Crossmatch 04/09/19 04/09/19 04/09/19 09:01 12:23 17:33 WBC RBC Hgb Hct MCV MCH MCHC RDW Plt Count [place] % (Auto) Lymph # Seg Neuts % (Manual) Lymphocytes % (Manual) Nucleated RBC % Seg Neutrophils # Man Lymphocytes # (Manual) Monocytes # (Manual) PT INR APTT D-Dimer POC ABG pH ABG pH POC ABG pCO2 POC ABG pO2 ABG pO2 ABG HCO3 ABG O2 Saturation ABG Base Excess ABG Hemoglobin VBG pH Oxyhemoglobin Sodium Potassium Chloride Carbon Dioxide BUN Creatinine Glucose POC Glucose 160 H 162 H 149 H Lactic Acid Calcium Phosphorus Magnesium Iron TIBC Direct Bilirubin AST ALT Alkaline Phosphatase Total Creatine Kinase CK-MB (CK-2) C-Reactive Protein Total Protein Albumin Vitamin B12 Salicylates Acetaminophen Miscellaneous Test Crossmatch 04/09/19 04/09/19 04/10/19 21:26 22:28 03:16 WBC RBC Hgb Hct MCV MCH MCHC RDW Plt Count [place] % (Auto) Lymph # Seg Neuts % (Manual) Lymphocytes % (Manual) Nucleated RBC % Seg Neutrophils # Man Lymphocytes # (Manual) Monocytes # (Manual) PT INR APTT D-Dimer POC ABG pH ABG pH POC ABG pCO2 POC ABG pO2 ABG pO2 ABG HCO3 ABG O2 Saturation ABG Base Excess ABG Hemoglobin VBG pH Oxyhemoglobin Sodium Potassium Chloride Carbon Dioxide BUN Creatinine Glucose POC Glucose 196 H 224 H 163 H Lactic Acid Calcium Phosphorus Magnesium Iron TIBC Direct Bilirubin AST ALT Alkaline Phosphatase Total Creatine Kinase CK-MB (CK-2) C-Reactive Protein Total Protein Albumin Vitamin B12 Salicylates Acetaminophen Miscellaneous Test Crossmatch 04/10/19 04/10/19 04/10/19 04:15 04:15 05:30 WBC RBC 2.88 L Hgb 9.2 L Hct 27.9 L MCV MCH MCHC RDW 17.0 H Plt Count 454 H [place] % (Auto) Lymph # Seg Neuts % (Manual) Lymphocytes % (Manual) Nucleated RBC % Seg Neutrophils # Man Lymphocytes # (Manual) Monocytes # (Manual) PT INR APTT D-Dimer POC ABG pH ABG pH POC ABG pCO2 POC ABG pO2 ABG pO2 ABG HCO3 ABG O2 Saturation ABG Base Excess ABG Hemoglobin VBG pH Oxyhemoglobin Sodium Potassium Chloride Carbon Dioxide 32 H BUN Creatinine 0.2 L Glucose 126 H POC Glucose 135 H Lactic Acid Calcium Phosphorus Magnesium Iron TIBC Direct Bilirubin AST ALT Alkaline Phosphatase Total Creatine Kinase CK-MB (CK-2) C-Reactive Protein Total Protein Albumin Vitamin B12 Salicylates Acetaminophen Miscellaneous Test Crossmatch 04/10/19 04/10/19 04/10/19 12:14 15:29 23:38 WBC RBC Hgb Hct MCV MCH MCHC RDW Plt Count [place] % (Auto) Lymph # Seg Neuts % (Manual) Lymphocytes % (Manual) Nucleated RBC % Seg Neutrophils # Man Lymphocytes # (Manual) Monocytes # (Manual) PT INR APTT D-Dimer POC ABG pH ABG pH POC ABG pCO2 POC ABG pO2 ABG pO2 ABG HCO3 ABG O2 Saturation ABG Base Excess ABG Hemoglobin VBG pH Oxyhemoglobin Sodium Potassium Chloride Carbon Dioxide BUN Creatinine Glucose POC Glucose 109 H 149 H 268 H Lactic Acid Calcium Phosphorus Magnesium Iron TIBC Direct Bilirubin AST ALT Alkaline Phosphatase Total Creatine Kinase CK-MB (CK-2) C-Reactive Protein Total Protein Albumin Vitamin B12 Salicylates Acetaminophen Miscellaneous Test Crossmatch 04/11/19 04/11/19 04/11/19 05:27 12:08 18:08 WBC RBC Hgb Hct MCV MCH MCHC RDW Plt Count [place] % (Auto) Lymph # Seg Neuts % (Manual) Lymphocytes % (Manual) Nucleated RBC % Seg Neutrophils # Man Lymphocytes # (Manual) Monocytes # (Manual) PT INR APTT D-Dimer POC ABG pH ABG pH POC ABG pCO2 POC ABG pO2 ABG pO2 ABG HCO3 ABG O2 Saturation ABG Base Excess ABG Hemoglobin VBG pH Oxyhemoglobin Sodium Potassium Chloride Carbon Dioxide BUN Creatinine Glucose POC Glucose 109 H 185 H 190 H Lactic Acid Calcium Phosphorus Magnesium Iron TIBC Direct Bilirubin AST ALT Alkaline Phosphatase Total Creatine Kinase CK-MB (CK-2) C-Reactive Protein Total Protein Albumin Vitamin B12 Salicylates Acetaminophen Miscellaneous Test Crossmatch 04/11/19 04/12/19 04/12/19 23:23 06:00 11:42 WBC RBC Hgb Hct MCV MCH MCHC RDW Plt Count [place] % (Auto) Lymph # Seg Neuts % (Manual) Lymphocytes % (Manual) Nucleated RBC % Seg Neutrophils # Man Lymphocytes # (Manual) Monocytes # (Manual) PT INR APTT D-Dimer POC ABG pH ABG pH POC ABG pCO2 POC ABG pO2 ABG pO2 ABG HCO3 ABG O2 Saturation ABG Base Excess ABG Hemoglobin VBG pH Oxyhemoglobin Sodium Potassium Chloride Carbon Dioxide BUN Creatinine Glucose POC Glucose 127 H 201 H 161 H Lactic Acid Calcium Phosphorus Magnesium Iron TIBC Direct Bilirubin AST ALT Alkaline Phosphatase Total Creatine Kinase CK-MB (CK-2) C-Reactive Protein Total Protein Albumin Vitamin B12 Salicylates Acetaminophen Miscellaneous Test Crossmatch 04/12/19 04/12/19 04/12/19 17:56 20:07 21:59 WBC RBC Hgb Hct MCV MCH MCHC RDW Plt Count [place] % (Auto) Lymph # Seg Neuts % (Manual) Lymphocytes % (Manual) Nucleated RBC % Seg Neutrophils # Man Lymphocytes # (Manual) Monocytes # (Manual) PT INR APTT D-Dimer POC ABG pH ABG pH POC ABG pCO2 POC ABG pO2 ABG pO2 ABG HCO3 ABG O2 Saturation ABG Base Excess ABG Hemoglobin VBG pH Oxyhemoglobin Sodium Potassium Chloride Carbon Dioxide BUN Creatinine Glucose POC Glucose 145 H 158 H 203 H Lactic Acid Calcium Phosphorus Magnesium Iron TIBC Direct Bilirubin AST ALT Alkaline Phosphatase Total Creatine Kinase CK-MB (CK-2) C-Reactive Protein Total Protein Albumin Vitamin B12 Salicylates Acetaminophen Miscellaneous Test Crossmatch 04/12/19 04/13/19 04/13/19 23:37 08:50 08:50 WBC 15.7 H RBC 3.12 L Hgb Hct 30.2 L MCV MCH 33 H MCHC RDW 18.0 H Plt Count 678 H [place] % (Auto) Lymph # Seg Neuts % (Manual) Lymphocytes % (Manual) Nucleated RBC % Seg Neutrophils # Man Lymphocytes # (Manual) Monocytes # (Manual) PT INR APTT D-Dimer POC ABG pH ABG pH POC ABG pCO2 POC ABG pO2 ABG pO2 ABG HCO3 ABG O2 Saturation ABG Base Excess ABG Hemoglobin VBG pH Oxyhemoglobin Sodium Potassium Chloride Carbon Dioxide BUN Creatinine < 0.2 L Glucose 46 L POC Glucose 238 H Lactic Acid Calcium Phosphorus Magnesium Iron TIBC Direct Bilirubin AST ALT Alkaline Phosphatase Total Creatine Kinase CK-MB (CK-2) C-Reactive Protein Total Protein Albumin Vitamin B12 Salicylates Acetaminophen Miscellaneous Test Crossmatch 04/13/19 04/13/19 04/13/19 11:56 17:27 23:57 WBC RBC Hgb Hct MCV MCH MCHC RDW Plt Count [place] % (Auto) Lymph # Seg Neuts % (Manual) Lymphocytes % (Manual) Nucleated RBC % Seg Neutrophils # Man Lymphocytes # (Manual) Monocytes # (Manual) PT INR APTT D-Dimer POC ABG pH ABG pH POC ABG pCO2 POC ABG pO2 ABG pO2 ABG HCO3 ABG O2 Saturation ABG Base Excess ABG Hemoglobin VBG pH Oxyhemoglobin Sodium Potassium Chloride Carbon Dioxide BUN Creatinine Glucose POC Glucose 40 L 66 L 65 L Lactic Acid Calcium Phosphorus Magnesium Iron TIBC Direct Bilirubin AST ALT Alkaline Phosphatase Total Creatine Kinase CK-MB (CK-2) C-Reactive Protein Total Protein Albumin Vitamin B12 Salicylates Acetaminophen Miscellaneous Test Crossmatch 04/14/19 04/14/19 04/14/19 05:28 08:20 08:20 WBC 17.8 H RBC 3.26 L Hgb Hct MCV 98 H MCH MCHC RDW 18.3 H Plt Count 622 H [place] % (Auto) Lymph # Seg Neuts % (Manual) Lymphocytes % (Manual) Nucleated RBC % Seg Neutrophils # Man Lymphocytes # (Manual) Monocytes # (Manual) PT INR APTT D-Dimer POC ABG pH ABG pH POC ABG pCO2 POC ABG pO2 ABG pO2 ABG HCO3 ABG O2 Saturation ABG Base Excess ABG Hemoglobin VBG pH Oxyhemoglobin Sodium Potassium Chloride Carbon Dioxide BUN 6 L Creatinine < 0.2 L Glucose 154 H POC Glucose 149 H Lactic Acid Calcium Phosphorus Magnesium Iron TIBC Direct Bilirubin AST ALT Alkaline Phosphatase Total Creatine Kinase CK-MB (CK-2) C-Reactive Protein Total Protein Albumin Vitamin B12 Salicylates Acetaminophen Miscellaneous Test Crossmatch 04/14/19 04/14/19 04/14/19 12:16 17:54 23:35 WBC RBC Hgb Hct MCV MCH MCHC RDW Plt Count [place] % (Auto) Lymph # Seg Neuts % (Manual) Lymphocytes % (Manual) Nucleated RBC % Seg Neutrophils # Man Lymphocytes # (Manual) Monocytes # (Manual) PT INR APTT D-Dimer POC ABG pH ABG pH POC ABG pCO2 POC ABG pO2 ABG pO2 ABG HCO3 ABG O2 Saturation ABG Base Excess ABG Hemoglobin VBG pH Oxyhemoglobin Sodium Potassium Chloride Carbon Dioxide BUN Creatinine Glucose POC Glucose 176 H 224 H 173 H Lactic Acid Calcium Phosphorus Magnesium Iron TIBC Direct Bilirubin AST ALT Alkaline Phosphatase Total Creatine Kinase CK-MB (CK-2) C-Reactive Protein Total Protein Albumin Vitamin B12 Salicylates Acetaminophen Miscellaneous Test Crossmatch 04/15/19 04/15/19 04/15/19 05:44 12:44 18:06 WBC RBC Hgb Hct MCV MCH MCHC RDW Plt Count [place] % (Auto) Lymph # Seg Neuts % (Manual) Lymphocytes % (Manual) Nucleated RBC % Seg Neutrophils # Man Lymphocytes # (Manual) Monocytes # (Manual) PT INR APTT D-Dimer POC ABG pH 7.461 H ABG pH POC ABG pCO2 45.5 H POC ABG pO2 ABG pO2 ABG HCO3 ABG O2 Saturation ABG Base Excess ABG Hemoglobin VBG pH Oxyhemoglobin Sodium Potassium Chloride Carbon Dioxide BUN Creatinine Glucose POC Glucose 255 H 365 H Lactic Acid Calcium Phosphorus Magnesium Iron TIBC Direct Bilirubin AST ALT Alkaline Phosphatase Total Creatine Kinase CK-MB (CK-2) C-Reactive Protein Total Protein Albumin Vitamin B12 Salicylates Acetaminophen Miscellaneous Test Crossmatch 04/15/19 04/15/19 04/16/19 18:06 23:34 00:40 WBC RBC Hgb Hct MCV MCH MCHC RDW Plt Count [place] % (Auto) Lymph # Seg Neuts % (Manual) Lymphocytes % (Manual) Nucleated RBC % Seg Neutrophils # Man Lymphocytes # (Manual) Monocytes # (Manual) PT INR APTT D-Dimer POC ABG pH ABG pH POC ABG pCO2 POC ABG pO2 ABG pO2 ABG HCO3 ABG O2 Saturation ABG Base Excess ABG Hemoglobin VBG pH Oxyhemoglobin Sodium Potassium Chloride Carbon Dioxide BUN Creatinine Glucose POC Glucose 157 H 56 L 107 H Lactic Acid Calcium Phosphorus Magnesium Iron TIBC Direct Bilirubin AST ALT Alkaline Phosphatase Total Creatine Kinase CK-MB (CK-2) C-Reactive Protein Total Protein Albumin Vitamin B12 Salicylates Acetaminophen Miscellaneous Test Crossmatch 04/16/19 04/16/19 04/16/19 09:06 09:06 11:21 WBC 12.9 H RBC 2.95 L Hgb 9.7 L Hct 28.9 L MCV 98 H MCH 33 H MCHC RDW 17.7 H Plt Count 581 H [place] % (Auto) Lymph # Seg Neuts % (Manual) Lymphocytes % (Manual) Nucleated RBC % Seg Neutrophils # Man Lymphocytes # (Manual) Monocytes # (Manual) PT INR APTT D-Dimer POC ABG pH ABG pH POC ABG pCO2 POC ABG pO2 ABG pO2 ABG HCO3 ABG O2 Saturation ABG Base Excess ABG Hemoglobin VBG pH Oxyhemoglobin Sodium Potassium Chloride Carbon Dioxide 31 H BUN Creatinine 0.2 L Glucose 155 H POC Glucose 184 H Lactic Acid Calcium Phosphorus Magnesium Iron TIBC Direct Bilirubin AST ALT Alkaline Phosphatase Total Creatine Kinase CK-MB (CK-2) C-Reactive Protein Total Protein Albumin Vitamin B12 Salicylates Acetaminophen Miscellaneous Test Crossmatch 04/16/19 04/16/19 04/16/19 17:28 20:17 23:09 WBC RBC Hgb Hct MCV MCH MCHC RDW Plt Count [place] % (Auto) Lymph # Seg Neuts % (Manual) Lymphocytes % (Manual) Nucleated RBC % Seg Neutrophils # Man Lymphocytes # (Manual) Monocytes # (Manual) PT INR APTT D-Dimer POC ABG pH 7.479 H ABG pH POC ABG pCO2 POC ABG pO2 71 L ABG pO2 ABG HCO3 ABG O2 Saturation ABG Base Excess ABG Hemoglobin VBG pH Oxyhemoglobin Sodium Potassium Chloride Carbon Dioxide BUN Creatinine Glucose POC Glucose 173 H 178 H Lactic Acid Calcium Phosphorus Magnesium Iron TIBC Direct Bilirubin AST ALT Alkaline Phosphatase Total Creatine Kinase CK-MB (CK-2) C-Reactive Protein Total Protein Albumin Vitamin B12 Salicylates Acetaminophen Miscellaneous Test Crossmatch 04/17/19 04/17/19 04/17/19 05:02 11:39 12:48 WBC RBC Hgb Hct MCV MCH MCHC RDW Plt Count [place] % (Auto) Lymph # Seg Neuts % (Manual) Lymphocytes % (Manual) Nucleated RBC % Seg Neutrophils # Man Lymphocytes # (Manual) Monocytes # (Manual) PT INR APTT D-Dimer POC ABG pH 7.557 H ABG pH POC ABG pCO2 32.8 L POC ABG pO2 149 H ABG pO2 ABG HCO3 ABG O2 Saturation ABG Base Excess ABG Hemoglobin VBG pH Oxyhemoglobin Sodium Potassium Chloride Carbon Dioxide BUN Creatinine Glucose POC Glucose 252 H 124 H Lactic Acid Calcium Phosphorus Magnesium Iron TIBC Direct Bilirubin AST ALT Alkaline Phosphatase Total Creatine Kinase CK-MB (CK-2) C-Reactive Protein Total Protein Albumin Vitamin B12 Salicylates Acetaminophen Miscellaneous Test Crossmatch 04/17/19 04/18/19 04/18/19 23:31 05:32 11:34 WBC RBC Hgb Hct MCV MCH MCHC RDW Plt Count [place] % (Auto) Lymph # Seg Neuts % (Manual) Lymphocytes % (Manual) Nucleated RBC % Seg Neutrophils # Man Lymphocytes # (Manual) Monocytes # (Manual) PT INR APTT D-Dimer POC ABG pH ABG pH POC ABG pCO2 POC ABG pO2 ABG pO2 ABG HCO3 ABG O2 Saturation ABG Base Excess ABG Hemoglobin VBG pH Oxyhemoglobin Sodium Potassium Chloride Carbon Dioxide BUN Creatinine Glucose POC Glucose 149 H 334 H 344 H Lactic Acid Calcium Phosphorus Magnesium Iron TIBC Direct Bilirubin AST ALT Alkaline Phosphatase Total Creatine Kinase CK-MB (CK-2) C-Reactive Protein Total Protein Albumin Vitamin B12 Salicylates Acetaminophen Miscellaneous Test Crossmatch 04/18/19 04/18/19 04/18/19 17:43 18:14 23:35 WBC RBC Hgb Hct MCV MCH MCHC RDW Plt Count [place] % (Auto) Lymph # Seg Neuts % (Manual) Lymphocytes % (Manual) Nucleated RBC % Seg Neutrophils # Man Lymphocytes # (Manual) Monocytes # (Manual) PT INR APTT D-Dimer POC ABG pH ABG pH POC ABG pCO2 49.2 H POC ABG pO2 ABG pO2 ABG HCO3 ABG O2 Saturation ABG Base Excess ABG Hemoglobin VBG pH Oxyhemoglobin Sodium Potassium Chloride Carbon Dioxide BUN Creatinine Glucose POC Glucose 289 H 312 H Lactic Acid Calcium Phosphorus Magnesium Iron TIBC Direct Bilirubin AST ALT Alkaline Phosphatase Total Creatine Kinase CK-MB (CK-2) C-Reactive Protein Total Protein Albumin Vitamin B12 Salicylates Acetaminophen Miscellaneous Test Crossmatch 04/19/19 04/19/19 04/19/19 04:35 05:55 12:26 WBC RBC Hgb Hct MCV MCH MCHC RDW Plt Count [place] % (Auto) Lymph # Seg Neuts % (Manual) Lymphocytes % (Manual) Nucleated RBC % Seg Neutrophils # Man Lymphocytes # (Manual) Monocytes # (Manual) PT INR APTT D-Dimer POC ABG pH 7.565 H ABG pH POC ABG pCO2 POC ABG pO2 ABG pO2 ABG HCO3 ABG O2 Saturation ABG Base Excess ABG Hemoglobin VBG pH Oxyhemoglobin Sodium Potassium Chloride Carbon Dioxide BUN Creatinine Glucose POC Glucose 172 H 271 H Lactic Acid Calcium Phosphorus Magnesium Iron TIBC Direct Bilirubin AST ALT Alkaline Phosphatase Total Creatine Kinase CK-MB (CK-2) C-Reactive Protein Total Protein Albumin Vitamin B12 Salicylates Acetaminophen Miscellaneous Test Crossmatch 04/19/19 04/19/19 04/19/19 17:54 21:10 23:35 WBC RBC Hgb Hct MCV MCH MCHC RDW Plt Count [place] % (Auto) Lymph # Seg Neuts % (Manual) Lymphocytes % (Manual) Nucleated RBC % Seg Neutrophils # Man Lymphocytes # (Manual) Monocytes # (Manual) PT INR APTT D-Dimer POC ABG pH ABG pH POC ABG pCO2 POC ABG pO2 ABG pO2 ABG HCO3 ABG O2 Saturation ABG Base Excess ABG Hemoglobin VBG pH Oxyhemoglobin Sodium Potassium Chloride Carbon Dioxide BUN Creatinine Glucose POC Glucose 229 H 189 H 131 H Lactic Acid Calcium Phosphorus Magnesium Iron TIBC Direct Bilirubin AST ALT Alkaline Phosphatase Total Creatine Kinase CK-MB (CK-2) C-Reactive Protein Total Protein Albumin Vitamin B12 Salicylates Acetaminophen Miscellaneous Test Crossmatch 04/20/19 04/20/19 04/20/19 05:42 11:58 17:32 WBC RBC Hgb Hct MCV MCH MCHC RDW Plt Count [place] % (Auto) Lymph # Seg Neuts % (Manual) Lymphocytes % (Manual) Nucleated RBC % Seg Neutrophils # Man Lymphocytes # (Manual) Monocytes # (Manual) PT INR APTT D-Dimer POC ABG pH ABG pH POC ABG pCO2 POC ABG pO2 ABG pO2 ABG HCO3 ABG O2 Saturation ABG Base Excess ABG Hemoglobin VBG pH Oxyhemoglobin Sodium Potassium Chloride Carbon Dioxide BUN Creatinine Glucose POC Glucose 289 H 265 H 232 H Lactic Acid Calcium Phosphorus Magnesium Iron TIBC Direct Bilirubin AST ALT Alkaline Phosphatase Total Creatine Kinase CK-MB (CK-2) C-Reactive Protein Total Protein Albumin Vitamin B12 Salicylates Acetaminophen Miscellaneous Test Crossmatch 04/21/19 04/21/19 04/21/19 00:02 05:13 12:41 WBC RBC Hgb Hct MCV MCH MCHC RDW Plt Count [place] % (Auto) Lymph # Seg Neuts % (Manual) Lymphocytes % (Manual) Nucleated RBC % Seg Neutrophils # Man Lymphocytes # (Manual) Monocytes # (Manual) PT INR APTT D-Dimer POC ABG pH ABG pH POC ABG pCO2 POC ABG pO2 ABG pO2 ABG HCO3 ABG O2 Saturation ABG Base Excess ABG Hemoglobin VBG pH Oxyhemoglobin Sodium Potassium Chloride Carbon Dioxide BUN Creatinine Glucose POC Glucose 126 H 233 H 205 H Lactic Acid Calcium Phosphorus Magnesium Iron TIBC Direct Bilirubin AST ALT Alkaline Phosphatase Total Creatine Kinase CK-MB (CK-2) C-Reactive Protein Total Protein Albumin Vitamin B12 Salicylates Acetaminophen Miscellaneous Test Crossmatch 0904/22/19 04/22/19 23:42 03:57 03:57 WBC 11.5 H RBC 3.44 L Hgb Hct MCV MCH MCHC RDW 16.3 H Plt Count 510 H [place] % (Auto) Lymph # Seg Neuts % (Manual) Lymphocytes % (Manual) Nucleated RBC % Seg Neutrophils # Man Lymphocytes # (Manual) Monocytes # (Manual) PT INR APTT D-Dimer POC ABG pH ABG pH POC ABG pCO2 POC ABG pO2 ABG pO2 ABG HCO3 ABG O2 Saturation ABG Base Excess ABG Hemoglobin VBG pH Oxyhemoglobin Sodium Potassium Chloride 96.3 L Carbon Dioxide BUN Creatinine 0.2 L Glucose 333 H POC Glucose 149 H Lactic Acid Calcium Phosphorus Magnesium Iron TIBC Direct Bilirubin AST 60 H ALT Alkaline Phosphatase 204 H Total Creatine Kinase CK-MB (CK-2) C-Reactive Protein Total Protein Albumin 3.1 L Vitamin B12 Salicylates Acetaminophen Miscellaneous Test Crossmatch 04/22/19 04/22/19 04/22/19 05:18 12:03 18:17 WBC RBC Hgb Hct MCV MCH MCHC RDW Plt Count [place] % (Auto) Lymph # Seg Neuts % (Manual) Lymphocytes % (Manual) Nucleated RBC % Seg Neutrophils # Man Lymphocytes # (Manual) Monocytes # (Manual) PT INR APTT D-Dimer POC ABG pH ABG pH POC ABG pCO2 POC ABG pO2 ABG pO2 ABG HCO3 ABG O2 Saturation ABG Base Excess ABG Hemoglobin VBG pH Oxyhemoglobin Sodium Potassium Chloride Carbon Dioxide BUN Creatinine Glucose POC Glucose 345 H 308 H 169 H Lactic Acid Calcium Phosphorus Magnesium Iron TIBC Direct Bilirubin AST ALT Alkaline Phosphatase Total Creatine Kinase CK-MB (CK-2) C-Reactive Protein Total Protein Albumin Vitamin B12 Salicylates Acetaminophen Miscellaneous Test Crossmatch 04/23/19 04/23/19 04/23/19 00:14 05:43 11:15 WBC RBC Hgb Hct MCV MCH MCHC RDW Plt Count [place] % (Auto) Lymph # Seg Neuts % (Manual) Lymphocytes % (Manual) Nucleated RBC % Seg Neutrophils # Man Lymphocytes # (Manual) Monocytes # (Manual) PT INR APTT D-Dimer POC ABG pH ABG pH POC ABG pCO2 POC ABG pO2 ABG pO2 ABG HCO3 ABG O2 Saturation ABG Base Excess ABG Hemoglobin VBG pH Oxyhemoglobin Sodium Potassium Chloride Carbon Dioxide BUN Creatinine Glucose POC Glucose 192 H 260 H 186 H Lactic Acid Calcium Phosphorus Magnesium Iron TIBC Direct Bilirubin AST ALT Alkaline Phosphatase Total Creatine Kinase CK-MB (CK-2) C-Reactive Protein Total Protein Albumin Vitamin B12 Salicylates Acetaminophen Miscellaneous Test Crossmatch Chest x-ray: report reviewed (Resolution of left lung collapse. No CHF or pneumonia.), image reviewed Allied health notes reviewed: nursing
[2019-04-23] MEDS: DURAGESIC TD SCH (15:23)
[2019-04-23] MEDS: LANTUS SUB-Q SCH (21:22)
[2019-04-24] MEDS: HumaLOG SUB-Q SCH ×4 (00:45→18:30)
[2019-04-24] MEDS: SIMPLE SYRUP FEEDTUBE PRN (06:02)
--- NOTE | 2019-04-24 08:24 | Progress Note ---
Assessment and Plan Patient resting on T tube. Patient sleeping at this time. No acute respiratory distress.. Patient is on T tube, FIO2 28%. O2 saturation 94%.Patient running low grade temp at times and has mild leukocytosis. - Patient Problems (1) Cardiac arrest Current Visit: Yes Status: Acute Plan to address problem: Patient resucitated. Presently sleeping on T tube. No acute respiratory distress.; (2) Status post tracheostomy Current Visit: Yes Status: Acute Plan to address problem: Respiratory suctioning. Recommend trach care as per respiratory therapy protocol. (3) DKA, type 1 Current Visit: Yes Status: Acute Qualifiers: Diabetes mellitus complication detail: with coma Qualified Code(s): E10.11 - Type 1 diabetes mellitus with ketoacidosis with coma Plan to address problem: Management as per primary care. (4) Hypotension Current Visit: Yes Status: Acute Qualifiers: Hypotension type: unspecified hypotension type Qualified Code(s): I95.9 - Hypotension, unspecified Plan to address problem: Improved. Recent blood pressure 105/75. (5) Renal failure Current Visit: Yes Status: Acute Qualifiers: Renal failure chronicity: acute Acute renal failure type: unspecified Qualified Code(s): N17.9 - Acute kidney failure, unspecified Plan to address problem: Improved. Management as per primary care and nephrology . Subjective Date of service: 04/24/19 Principal diagnosis: Ac Hypoxemic Resp Failure; DKA; Severe sepsis with shock; ANGELICA Interval history: Patient resting on T tube. Patient sleeping at this time. No acute respiratory distress.. Patient is on T tube, FIO2 28%. O2 saturation 94%.Patient running low grade temp at times and has mild leukocytosis. Objective Vital Signs - 12hr 04/23/19 04/23/19 04/23/19 21:07 21:09 21:25 Temperature Pulse Rate 120 H Pulse Rate [ 120 H Anterior Bilateral] Respiratory Rate Respiratory 25 H Rate [Anterior Bilateral] Blood Pressure 107/72 O2 Sat by Pulse 94 Oximetry O2 Sat by Pulse 94 Oximetry [ Assessment] 04/23/19 04/23/19 04/24/19 23:05 23:14 04:54 Temperature 99.1 F 98.3 F Pulse Rate 57 L 116 H 111 H Pulse Rate [ Anterior Bilateral] Respiratory 28 H 24 Rate Respiratory Rate [Anterior Bilateral] Blood Pressure 111/73 129/84 O2 Sat by Pulse 100 94 Oximetry O2 Sat by Pulse Oximetry [ Assessment] Constitutional: no acute distress, other (young CF normocephalic and atraumatic s/p tracheostomy to ATP, copious secretions) Eyes: non-icteric ENT: oropharynx moist, other Neck: supple, no lymphadenopathy, no JVD Effort: mildly labored Ascultation: Bilateral: diminished breath sounds, rhonchi Percussion: Bilateral: not dull Cardiovascular: regular rate and rhythm Gastrointestinal: normoactive bowel sounds, soft, non-tender, non-distended, other (PEG tube) Integumentary: erythema (noted on upper extremity) Extremities: no cyanosis, no edema, pink and warm, pulses normal, no ischemia or petechiae Neurologic: unable to assess (awake, alert, not obeying commands) Psychiatric: other (unable to assess) CBC and BMP: 04/22/19 03:57 04/22/19 03:57 ABG, PT/INR, D-dimer: ABG POC ABG pH 7.565 (7.35-7.45) H 04/19/19 04:35 ABG pH 7.396 pH Units (7.350-7.450) 04/03/19 05:35 POC ABG pCO2 36.2 (35-45) 04/19/19 04:35 ABG pCO2 32.2 mm Hg 04/03/19 05:35 POC ABG pO2 88 (80-105) 04/19/19 04:35 ABG pO2 97.7 mm Hg (80.0-90.0) H 04/03/19 05:35 POC ABG HCO3 32.8 (22-26 mml/L) 04/19/19 04:35 POC ABG Total CO2 34 (23-27mmol/L) 04/19/19 04:35 POC ABG O2 Sat 98 04/19/19 04:35 ABG O2 Saturation 97.6 % (95.0-99.0) 04/03/19 05:35 PT/INR, D-dimer PT 13.9 Sec. (12.2-14.9) 04/01/19 17:14 INR 1.10 (0.87-1.13) 04/01/19 17:14 D-Dimer 4526.86 ng/mlDDU (0-234) H 04/06/19 00:06 Abnormal lab findings: Abnormal Labs 03/29/19 03/29/19 03/29/19 19:11 19:20 19:20 WBC 26.7 H RBC 2.52 L Hgb 8.1 L Hct MCV 148 H MCH MCHC 22 L RDW 18.5 H Plt Count [place] % (Auto) Lymph # Seg Neuts % (Manual) 82.0 H Lymphocytes % (Manual) 7.0 L Nucleated RBC % Seg Neutrophils # Man 21.9 H Lymphocytes # (Manual) Monocytes # (Manual) 1.9 H PT 21.8 H INR 1.95 H APTT 74.5 H* D-Dimer POC ABG pH ABG pH POC ABG pCO2 POC ABG pO2 ABG pO2 ABG HCO3 ABG O2 Saturation ABG Base Excess ABG Hemoglobin VBG pH Oxyhemoglobin Sodium Potassium Chloride Carbon Dioxide BUN Creatinine Glucose POC Glucose > 500 H Lactic Acid Calcium Phosphorus Magnesium Iron TIBC Direct Bilirubin AST ALT Alkaline Phosphatase Total Creatine Kinase CK-MB (CK-2) C-Reactive Protein Total Protein Albumin Vitamin B12 Salicylates Acetaminophen Miscellaneous Test Crossmatch 03/29/19 03/29/19 03/29/19 19:20 19:47 20:59 WBC RBC Hgb Hct MCV MCH MCHC RDW Plt Count [place] % (Auto) Lymph # Seg Neuts % (Manual) Lymphocytes % (Manual) Nucleated RBC % Seg Neutrophils # Man Lymphocytes # (Manual) Monocytes # (Manual) PT INR APTT D-Dimer POC ABG pH 6.892 L ABG pH POC ABG pCO2 POC ABG pO2 236 H ABG pO2 ABG HCO3 ABG O2 Saturation ABG Base Excess ABG Hemoglobin VBG pH 6.800 L* Oxyhemoglobin Sodium 118 L* Potassium 9.0 H* Chloride 64.5 L Carbon Dioxide 7 L* BUN 53 H Creatinine 2.1 H Glucose 2196 H* POC Glucose Lactic Acid Calcium 12.4 H* Phosphorus Magnesium Iron TIBC Direct Bilirubin AST 3900 H ALT 1034 H Alkaline Phosphatase 316 H Total Creatine Kinase CK-MB (CK-2) C-Reactive Protein Total Protein 5.1 L Albumin 2.8 L Vitamin B12 Salicylates Acetaminophen Miscellaneous Test Crossmatch 03/29/19 03/29/19 03/29/19 22:45 22:45 22:45 WBC RBC Hgb Hct MCV MCH MCHC RDW Plt Count [place] % (Auto) Lymph # Seg Neuts % (Manual) Lymphocytes % (Manual) Nucleated RBC % Seg Neutrophils # Man Lymphocytes # (Manual) Monocytes # (Manual) PT INR APTT D-Dimer POC ABG pH ABG pH POC ABG pCO2 POC ABG pO2 ABG pO2 ABG HCO3 ABG O2 Saturation ABG Base Excess ABG Hemoglobin VBG pH Oxyhemoglobin Sodium 132 L D Potassium 7.0 H* Chloride 84.3 L Carbon Dioxide 3 L* BUN 48 H Creatinine 1.8 H Glucose 1779 H* POC Glucose Lactic Acid Calcium Phosphorus 21.70 H Magnesium 4.70 H Iron TIBC Direct Bilirubin AST ALT Alkaline Phosphatase Total Creatine Kinase 363 H CK-MB (CK-2) C-Reactive Protein Total Protein Albumin Vitamin B12 Salicylates Acetaminophen Miscellaneous Test Crossmatch 03/29/19 03/29/19 03/30/19 Unknown Unknown 00:11 WBC RBC Hgb Hct MCV MCH MCHC RDW Plt Count [place] % (Auto) Lymph # Seg Neuts % (Manual) Lymphocytes % (Manual) Nucleated RBC % Seg Neutrophils # Man Lymphocytes # (Manual) Monocytes # (Manual) PT INR APTT D-Dimer POC ABG pH ABG pH POC ABG pCO2 POC ABG pO2 ABG pO2 ABG HCO3 ABG O2 Saturation ABG Base Excess ABG Hemoglobin VBG pH Oxyhemoglobin Sodium 122 L Potassium 7.9 H* 6.4 H* Chloride 75.3 L 89.7 L Carbon Dioxide 3 L* 12 L D BUN 52 H 46 H Creatinine 2.0 H 1.7 H Glucose 2043 H* 1591 H* POC Glucose Lactic Acid Calcium 7.8 L Phosphorus 19.30 H Magnesium 3.90 H Iron TIBC Direct Bilirubin AST ALT Alkaline Phosphatase Total Creatine Kinase CK-MB (CK-2) C-Reactive Protein Total Protein Albumin Vitamin B12 Salicylates Acetaminophen Miscellaneous Test Crossmatch 03/30/19 03/30/19 03/30/19 00:11 02:14 02:14 WBC RBC Hgb Hct MCV MCH MCHC RDW Plt Count [place] % (Auto) Lymph # Seg Neuts % (Manual) Lymphocytes % (Manual) Nucleated RBC % Seg Neutrophils # Man Lymphocytes # (Manual) Monocytes # (Manual) PT INR APTT D-Dimer POC ABG pH ABG pH POC ABG pCO2 POC ABG pO2 ABG pO2 ABG HCO3 ABG O2 Saturation ABG Base Excess ABG Hemoglobin VBG pH Oxyhemoglobin Sodium Potassium Chloride Carbon Dioxide 9 L* BUN 45 H Creatinine 1.7 H Glucose 1155 H* POC Glucose Lactic Acid Calcium 7.9 L Phosphorus 10.90 H D 5.30 H D Magnesium 3.10 H 2.90 H Iron TIBC Direct Bilirubin AST ALT Alkaline Phosphatase Total Creatine Kinase CK-MB (CK-2) C-Reactive Protein Total Protein Albumin Vitamin B12 Salicylates Acetaminophen Miscellaneous Test Crossmatch 03/30/19 03/30/19 03/30/19 03:15 03:30 04:23 WBC 18.0 H RBC 2.31 L Hgb 7.3 L Hct 23.8 L D MCV 103 H MCH MCHC RDW 17.1 H Plt Count [place] % (Auto) Lymph # Seg Neuts % (Manual) 79.0 H Lymphocytes % (Manual) Nucleated RBC % Seg Neutrophils # Man 14.2 H Lymphocytes # (Manual) Monocytes # (Manual) PT INR APTT D-Dimer POC ABG pH 7.251 L ABG pH POC ABG pCO2 POC ABG pO2 156 H ABG pO2 ABG HCO3 ABG O2 Saturation ABG Base Excess ABG Hemoglobin VBG pH Oxyhemoglobin Sodium Potassium Chloride Carbon Dioxide BUN Creatinine Glucose POC Glucose Lactic Acid Calcium Phosphorus Magnesium Iron TIBC Direct Bilirubin AST ALT Alkaline Phosphatase Total Creatine Kinase CK-MB (CK-2) C-Reactive Protein Total Protein Albumin Vitamin B12 Salicylates Acetaminophen Miscellaneous Test Crossmatch See Detail 03/30/19 03/30/19 03/30/19 05:26 05:26 10:38 WBC RBC Hgb Hct MCV MCH MCHC RDW Plt Count [place] % (Auto) Lymph # Seg Neuts % (Manual) Lymphocytes % (Manual) Nucleated RBC % Seg Neutrophils # Man Lymphocytes # (Manual) Monocytes # (Manual) PT INR APTT D-Dimer POC ABG pH ABG pH POC ABG pCO2 POC ABG pO2 ABG pO2 ABG HCO3 ABG O2 Saturation ABG Base Excess ABG Hemoglobin VBG pH Oxyhemoglobin Sodium 158 H D Potassium 3.5 L Chloride 109.3 H Carbon Dioxide 19 L D BUN 40 H Creatinine 1.5 H Glucose 760 H* POC Glucose 380 H Lactic Acid Calcium 7.3 L Phosphorus Magnesium 2.60 H Iron TIBC Direct [place] AST 25739 H ALT 2156 H Alkaline Phosphatase 271 H Total Creatine Kinase 2465 H CK-MB (CK-2) 52.7 H C-Reactive Protein Total Protein 4.5 L Albumin 2.4 L Vitamin B12 Salicylates Acetaminophen Miscellaneous Test Crossmatch 03/30/19 03/30/19 03/30/19 11:08 12:25 12:57 WBC RBC Hgb Hct MCV MCH MCHC RDW Plt Count [place] % (Auto) Lymph # Seg Neuts % (Manual) Lymphocytes % (Manual) Nucleated RBC % Seg Neutrophils # Man Lymphocytes # (Manual) Monocytes # (Manual) PT INR APTT D-Dimer POC ABG pH ABG pH POC ABG pCO2 POC ABG pO2 ABG pO2 ABG HCO3 ABG O2 Saturation ABG Base Excess ABG Hemoglobin VBG pH Oxyhemoglobin Sodium 156 H Potassium 3.2 L Chloride 116.4 H Carbon Dioxide 21 L BUN 37 H Creatinine Glucose 162 H POC Glucose 263 H 196 H Lactic Acid Calcium 7.2 L Phosphorus Magnesium Iron TIBC Direct Bilirubin AST ALT Alkaline Phosphatase Total Creatine Kinase CK-MB (CK-2) C-Reactive Protein Total Protein Albumin Vitamin B12 Salicylates Acetaminophen Miscellaneous Test Crossmatch 03/30/19 03/30/19 03/30/19 12:57 12:57 12:57 WBC RBC Hgb Hct MCV MCH MCHC RDW Plt Count [place] % (Auto) Lymph # Seg Neuts % (Manual) Lymphocytes % (Manual) Nucleated RBC % Seg Neutrophils # Man Lymphocytes # (Manual) Monocytes # (Manual) PT 21.0 H INR 1.86 H APTT D-Dimer POC ABG pH ABG pH POC ABG pCO2 POC ABG pO2 ABG pO2 ABG HCO3 ABG O2 Saturation ABG Base Excess ABG Hemoglobin VBG pH Oxyhemoglobin Sodium Potassium Chloride Carbon Dioxide BUN Creatinine Glucose POC Glucose Lactic Acid 9.00 H* Calcium Phosphorus Magnesium Iron TIBC Direct Bilirubin AST ALT Alkaline Phosphatase Total Creatine Kinase CK-MB (CK-2) C-Reactive Protein 2.40 H Total Protein Albumin Vitamin B12 Salicylates Acetaminophen Miscellaneous Test Crossmatch 03/30/19 03/30/19 03/30/19 13:23 14:00 14:47 WBC RBC Hgb Hct MCV MCH MCHC RDW Plt Count [place] % (Auto) Lymph # Seg Neuts % (Manual) Lymphocytes % (Manual) Nucleated RBC % Seg Neutrophils # Man Lymphocytes # (Manual) Monocytes # (Manual) PT INR APTT D-Dimer POC ABG pH ABG pH POC ABG pCO2 POC ABG pO2 ABG pO2 ABG HCO3 ABG O2 Saturation ABG Base Excess ABG Hemoglobin VBG pH Oxyhemoglobin Sodium Potassium Chloride Carbon Dioxide BUN Creatinine Glucose POC Glucose 176 H 245 H Lactic Acid Calcium Phosphorus Magnesium Iron TIBC Direct Bilirubin AST ALT Alkaline Phosphatase Total Creatine Kinase CK-MB (CK-2) C-Reactive Protein Total Protein Albumin Vitamin B12 Salicylates Acetaminophen Miscellaneous Test Flexitest 1 H Crossmatch 03/30/19 03/30/19 03/30/19 16:11 17:11 17:46 WBC RBC Hgb Hct MCV MCH MCHC RDW Plt Count [place] % (Auto) Lymph # Seg Neuts % (Manual) Lymphocytes % (Manual) Nucleated RBC % Seg Neutrophils # Man Lymphocytes # (Manual) Monocytes # (Manual) PT INR APTT D-Dimer POC ABG pH ABG pH POC ABG pCO2 POC ABG pO2 ABG pO2 ABG HCO3 ABG O2 Saturation ABG Base Excess ABG Hemoglobin VBG pH Oxyhemoglobin Sodium Potassium Chloride Carbon Dioxide BUN Creatinine Glucose POC Glucose 181 H 167 H 125 H Lactic Acid Calcium Phosphorus Magnesium Iron TIBC Direct Bilirubin AST ALT Alkaline Phosphatase Total Creatine Kinase CK-MB (CK-2) C-Reactive Protein Total Protein Albumin Vitamin B12 Salicylates Acetaminophen Miscellaneous Test Crossmatch 03/30/19 03/30/19 03/30/19 18:59 21:31 22:19 WBC RBC Hgb Hct MCV MCH MCHC RDW Plt Count [place] % (Auto) Lymph # Seg Neuts % (Manual) Lymphocytes % (Manual) Nucleated RBC % Seg Neutrophils # Man Lymphocytes # (Manual) Monocytes # (Manual) PT INR APTT D-Dimer POC ABG pH ABG pH POC ABG pCO2 POC ABG pO2 ABG pO2 ABG HCO3 ABG O2 Saturation ABG Base Excess ABG Hemoglobin VBG pH Oxyhemoglobin Sodium Potassium Chloride Carbon Dioxide BUN Creatinine Glucose POC Glucose 140 H 166 H 115 H Lactic Acid Calcium Phosphorus Magnesium Iron TIBC Direct Bilirubin AST ALT Alkaline Phosphatase Total Creatine Kinase CK-MB (CK-2) C-Reactive Protein Total Protein Albumin Vitamin B12 Salicylates Acetaminophen Miscellaneous Test Crossmatch 03/30/19 03/30/19 03/30/19 23:13 Unknown Unknown WBC RBC Hgb Hct MCV MCH MCHC RDW Plt Count [place] % (Auto) Lymph # Seg Neuts % (Manual) Lymphocytes % (Manual) Nucleated RBC % Seg Neutrophils # Man Lymphocytes # (Manual) Monocytes # (Manual) PT INR APTT D-Dimer POC ABG pH ABG pH POC ABG pCO2 POC ABG pO2 ABG pO2 47.8 L ABG HCO3 18.8 L ABG O2 Saturation 83.8 L ABG Base Excess -5.4 L ABG Hemoglobin 6.8 L VBG pH Oxyhemoglobin 81.8 L Sodium 157 H Potassium 3.3 L Chloride 117.9 H Carbon Dioxide 20 L BUN 36 H Creatinine Glucose 150 H POC Glucose 112 H Lactic Acid Calcium 7.2 L Phosphorus Magnesium Iron TIBC Direct Bilirubin AST ALT Alkaline Phosphatase Total Creatine Kinase CK-MB (CK-2) C-Reactive Protein Total Protein Albumin Vitamin B12 Salicylates Acetaminophen Miscellaneous Test Crossmatch 03/30/19 03/30/19 03/31/19 Unknown Unknown 00:03 WBC RBC Hgb Hct MCV MCH MCHC RDW Plt Count [place] % (Auto) Lymph # Seg Neuts % (Manual) Lymphocytes % (Manual) Nucleated RBC % Seg Neutrophils # Man Lymphocytes # (Manual) Monocytes # (Manual) PT INR APTT D-Dimer POC ABG pH ABG pH POC ABG pCO2 POC ABG pO2 ABG pO2 ABG HCO3 ABG O2 Saturation ABG Base Excess ABG Hemoglobin VBG pH Oxyhemoglobin Sodium Potassium Chloride Carbon Dioxide BUN Creatinine Glucose POC Glucose 188 H Lactic Acid Calcium Phosphorus Magnesium Iron TIBC Direct Bilirubin AST ALT Alkaline Phosphatase Total Creatine Kinase CK-MB (CK-2) C-Reactive Protein Total Protein Albumin Vitamin B12 Salicylates 0.8 L Acetaminophen < 5.0 L Miscellaneous Test Crossmatch 03/31/19 03/31/19 03/31/19 01:18 03:07 03:50 WBC RBC Hgb Hct MCV MCH MCHC RDW Plt Count [place] % (Auto) Lymph # Seg Neuts % (Manual) Lymphocytes % (Manual) Nucleated RBC % Seg Neutrophils # Man Lymphocytes # (Manual) Monocytes # (Manual) PT INR APTT D-Dimer POC ABG pH ABG pH 7.525 H POC ABG pCO2 POC ABG pO2 ABG pO2 178.0 H ABG HCO3 19.5 L ABG O2 Saturation 99.2 H ABG Base Excess -3.1 L ABG Hemoglobin 5.8 L VBG pH Oxyhemoglobin Sodium Potassium Chloride Carbon Dioxide BUN Creatinine Glucose POC Glucose 114 H 107 H Lactic Acid Calcium Phosphorus Magnesium Iron TIBC Direct Bilirubin AST ALT Alkaline Phosphatase Total Creatine Kinase CK-MB (CK-2) C-Reactive Protein Total Protein Albumin Vitamin B12 Salicylates Acetaminophen Miscellaneous Test Crossmatch 03/31/19 03/31/19 03/31/19 03:51 03:51 04:05 WBC RBC 1.89 L Hgb 6.1 L Hct 18.2 L* MCV MCH MCHC RDW 17.7 H Plt Count 89 L [place] % (Auto) Lymph # Seg Neuts % (Manual) 86.0 H Lymphocytes % (Manual) 10.0 L Nucleated RBC % 1.0 H Seg Neutrophils # Man Lymphocytes # (Manual) 0.7 L Monocytes # (Manual) PT INR APTT D-Dimer POC ABG pH ABG pH POC ABG pCO2 POC ABG pO2 ABG pO2 ABG HCO3 ABG O2 Saturation ABG Base Excess ABG Hemoglobin VBG pH Oxyhemoglobin Sodium 151 H Potassium 3.2 L Chloride 119.4 H Carbon Dioxide 17 L BUN 35 H Creatinine Glucose 139 H POC Glucose 153 H Lactic Acid Calcium 7.1 L Phosphorus Magnesium Iron TIBC Direct Bilirubin AST ALT Alkaline Phosphatase Total Creatine Kinase CK-MB (CK-2) C-Reactive Protein Total Protein Albumin Vitamin B12 Salicylates Acetaminophen Miscellaneous Test Crossmatch 03/31/19 03/31/19 03/31/19 05:05 05:35 06:23 WBC RBC Hgb Hct MCV MCH MCHC RDW Plt Count [place] % (Auto) Lymph # Seg Neuts % (Manual) Lymphocytes % (Manual) Nucleated RBC % Seg Neutrophils # Man Lymphocytes # (Manual) Monocytes # (Manual) PT INR APTT D-Dimer POC ABG pH ABG pH POC ABG pCO2 POC ABG pO2 ABG pO2 ABG HCO3 ABG O2 Saturation ABG Base Excess ABG Hemoglobin VBG pH Oxyhemoglobin Sodium Potassium Chloride Carbon Dioxide BUN Creatinine Glucose POC Glucose 176 H 133 H Lactic Acid 3.20 H* Calcium Phosphorus Magnesium Iron TIBC Direct Bilirubin AST ALT Alkaline Phosphatase Total Creatine Kinase CK-MB (CK-2) C-Reactive Protein Total Protein Albumin Vitamin B12 Salicylates Acetaminophen Miscellaneous Test Crossmatch 03/31/19 03/31/19 03/31/19 07:50 07:51 08:20 WBC RBC Hgb Hct MCV MCH MCHC RDW Plt Count [place] % (Auto) Lymph # Seg Neuts % (Manual) Lymphocytes % (Manual) Nucleated RBC % Seg Neutrophils # Man Lymphocytes # (Manual) Monocytes # (Manual) PT INR APTT D-Dimer POC ABG pH ABG pH POC ABG pCO2 POC ABG pO2 ABG pO2 ABG HCO3 ABG O2 Saturation ABG Base Excess ABG Hemoglobin VBG pH Oxyhemoglobin Sodium Potassium Chloride Carbon Dioxide BUN Creatinine Glucose POC Glucose 135 H Lactic Acid 3.30 H* Calcium Phosphorus Magnesium Iron 26 L TIBC 193 L Direct Bilirubin AST ALT Alkaline Phosphatase Total Creatine Kinase CK-MB (CK-2) C-Reactive Protein Total Protein Albumin Vitamin B12 Salicylates Acetaminophen Miscellaneous Test Crossmatch 03/31/19 03/31/19 03/31/19 08:20 08:20 09:06 WBC RBC Hgb Hct MCV MCH MCHC RDW Plt Count [place] % (Auto) Lymph # Seg Neuts % (Manual) Lymphocytes % (Manual) Nucleated RBC % Seg Neutrophils # Man Lymphocytes # (Manual) Monocytes # (Manual) PT INR APTT D-Dimer POC ABG pH ABG pH POC ABG pCO2 POC ABG pO2 ABG pO2 ABG HCO3 ABG O2 Saturation ABG Base Excess ABG Hemoglobin VBG pH Oxyhemoglobin Sodium 153 H Potassium 3.0 L Chloride 118.9 H Carbon Dioxide 18 L BUN 37 H Creatinine Glucose 132 H POC Glucose 145 H Lactic Acid Calcium 7.1 L Phosphorus Magnesium Iron TIBC Direct Bilirubin AST ALT Alkaline Phosphatase Total Creatine Kinase CK-MB (CK-2) C-Reactive Protein Total Protein Albumin Vitamin B12 > 2000 H Salicylates Acetaminophen Miscellaneous Test Crossmatch 03/31/19 03/31/19 03/31/19 10:47 11:49 13:04 WBC RBC Hgb Hct MCV MCH MCHC RDW Plt Count [place] % (Auto) Lymph # Seg Neuts % (Manual) Lymphocytes % (Manual) Nucleated RBC % Seg Neutrophils # Man Lymphocytes # (Manual) Monocytes # (Manual) PT INR APTT D-Dimer POC ABG pH ABG pH POC ABG pCO2 POC ABG pO2 ABG pO2 ABG HCO3 ABG O2 Saturation ABG Base Excess ABG Hemoglobin VBG pH Oxyhemoglobin Sodium Potassium Chloride Carbon Dioxide BUN Creatinine Glucose POC Glucose 153 H 174 H 214 H Lactic Acid Calcium Phosphorus Magnesium Iron TIBC Direct Bilirubin AST ALT Alkaline Phosphatase Total Creatine Kinase CK-MB (CK-2) C-Reactive Protein Total Protein Albumin Vitamin B12 Salicylates Acetaminophen Miscellaneous Test Crossmatch 03/31/19 03/31/19 03/31/19 13:42 15:08 16:08 WBC RBC Hgb Hct MCV MCH MCHC RDW Plt Count [place] % (Auto) Lymph # Seg Neuts % (Manual) Lymphocytes % (Manual) Nucleated RBC % Seg Neutrophils # Man Lymphocytes # (Manual) Monocytes # (Manual) PT INR APTT D-Dimer POC ABG pH ABG pH POC ABG pCO2 POC ABG pO2 ABG pO2 ABG HCO3 ABG O2 Saturation ABG Base Excess ABG Hemoglobin VBG pH Oxyhemoglobin Sodium Potassium Chloride Carbon Dioxide BUN Creatinine Glucose POC Glucose 186 H 136 H 150 H Lactic Acid Calcium Phosphorus Magnesium Iron TIBC Direct Bilirubin AST ALT Alkaline Phosphatase Total Creatine Kinase CK-MB (CK-2) C-Reactive Protein Total Protein Albumin Vitamin B12 Salicylates Acetaminophen Miscellaneous Test Crossmatch 03/31/19 03/31/19 03/31/19 17:11 17:30 17:30 WBC RBC Hgb 7.7 L Hct 23.0 L MCV MCH MCHC RDW Plt Count [place] % (Auto) Lymph # Seg Neuts % (Manual) Lymphocytes % (Manual) Nucleated RBC % Seg Neutrophils # Man Lymphocytes # (Manual) Monocytes # (Manual) PT INR APTT D-Dimer POC ABG pH ABG pH POC ABG pCO2 POC ABG pO2 ABG pO2 ABG HCO3 ABG O2 Saturation ABG Base Excess ABG Hemoglobin VBG pH Oxyhemoglobin Sodium 153 H Potassium 3.5 L Chloride 119.3 H Carbon Dioxide 20 L BUN 34 H Creatinine Glucose 162 H POC Glucose 140 H Lactic Acid Calcium 7.6 L Phosphorus Magnesium Iron TIBC Direct Bilirubin AST ALT Alkaline Phosphatase Total Creatine Kinase CK-MB (CK-2) C-Reactive Protein Total Protein Albumin Vitamin B12 Salicylates Acetaminophen Miscellaneous Test Crossmatch 03/31/19 03/31/19 03/31/19 17:59 18:58 20:28 WBC RBC Hgb Hct MCV MCH MCHC RDW Plt Count [place] % (Auto) Lymph # Seg Neuts % (Manual) Lymphocytes % (Manual) Nucleated RBC % Seg Neutrophils # Man Lymphocytes # (Manual) Monocytes # (Manual) PT INR APTT D-Dimer POC ABG pH ABG pH POC ABG pCO2 POC ABG pO2 ABG pO2 ABG HCO3 ABG O2 Saturation ABG Base Excess ABG Hemoglobin VBG pH Oxyhemoglobin Sodium Potassium Chloride Carbon Dioxide BUN Creatinine Glucose POC Glucose 156 H 152 H 138 H Lactic Acid Calcium Phosphorus Magnesium Iron TIBC Direct Bilirubin AST ALT Alkaline Phosphatase Total Creatine Kinase CK-MB (CK-2) C-Reactive Protein Total Protein Albumin Vitamin B12 Salicylates Acetaminophen Miscellaneous Test Crossmatch 03/31/19 03/31/19 03/31/19 21:09 22:15 23:10 WBC RBC Hgb Hct MCV MCH MCHC RDW Plt Count [place] % (Auto) Lymph # Seg Neuts % (Manual) Lymphocytes % (Manual) Nucleated RBC % Seg Neutrophils # Man Lymphocytes # (Manual) Monocytes # (Manual) PT INR APTT D-Dimer POC ABG pH ABG pH POC ABG pCO2 POC ABG pO2 ABG pO2 ABG HCO3 ABG O2 Saturation ABG Base Excess ABG Hemoglobin VBG pH Oxyhemoglobin Sodium Potassium Chloride Carbon Dioxide BUN Creatinine Glucose POC Glucose 136 H 137 H 148 H Lactic Acid Calcium Phosphorus Magnesium Iron TIBC Direct Bilirubin AST ALT Alkaline Phosphatase Total Creatine Kinase CK-MB (CK-2) C-Reactive Protein Total Protein Albumin Vitamin B12 Salicylates Acetaminophen Miscellaneous Test Crossmatch 04/01/19 04/01/19 04/01/19 00:05 01:17 02:11 WBC RBC Hgb Hct MCV MCH MCHC RDW Plt Count [place] % (Auto) Lymph # Seg Neuts % (Manual) Lymphocytes % (Manual) Nucleated RBC % Seg Neutrophils # Man Lymphocytes # (Manual) Monocytes # (Manual) PT INR APTT D-Dimer POC ABG pH ABG pH POC ABG pCO2 POC ABG pO2 ABG pO2 ABG HCO3 ABG O2 Saturation ABG Base Excess ABG Hemoglobin VBG pH Oxyhemoglobin Sodium Potassium Chloride Carbon Dioxide BUN Creatinine Glucose POC Glucose 143 H 151 H 155 H Lactic Acid Calcium Phosphorus Magnesium Iron TIBC Direct Bilirubin AST ALT Alkaline Phosphatase Total Creatine Kinase CK-MB (CK-2) C-Reactive Protein Total Protein Albumin Vitamin B12 Salicylates Acetaminophen Miscellaneous Test Crossmatch 04/01/19 04/01/19 04/01/19 03:12 04:03 04:16 WBC RBC Hgb Hct MCV MCH MCHC RDW Plt Count [place] % (Auto) Lymph # Seg Neuts % (Manual) Lymphocytes % (Manual) Nucleated RBC % Seg Neutrophils # Man Lymphocytes # (Manual) Monocytes # (Manual) PT INR APTT D-Dimer POC ABG pH ABG pH POC ABG pCO2 POC ABG pO2 ABG pO2 ABG HCO3 ABG O2 Saturation ABG Base Excess ABG Hemoglobin VBG pH Oxyhemoglobin Sodium Potassium Chloride Carbon Dioxide BUN Creatinine Glucose POC Glucose 140 H 143 H 142 H Lactic Acid Calcium Phosphorus Magnesium Iron TIBC Direct Bilirubin AST ALT Alkaline Phosphatase Total Creatine Kinase CK-MB (CK-2) C-Reactive Protein Total Protein Albumin Vitamin B12 Salicylates Acetaminophen Miscellaneous Test Crossmatch 04/01/19 04/01/19 04/01/19 05:01 05:01 05:08 WBC RBC 2.05 L Hgb 6.8 L Hct 20.5 L MCV 100 H MCH 33 H MCHC RDW 17.7 H Plt Count 53 L [place] % (Auto) Lymph # Seg Neuts % (Manual) 71.0 H Lymphocytes % (Manual) Nucleated RBC % Seg Neutrophils # Man Lymphocytes # (Manual) Monocytes # (Manual) PT INR APTT D-Dimer POC ABG pH ABG pH POC ABG pCO2 POC ABG pO2 ABG pO2 ABG HCO3 ABG O2 Saturation ABG Base Excess ABG Hemoglobin VBG pH Oxyhemoglobin Sodium Potassium Chloride Carbon Dioxide BUN Creatinine Glucose POC Glucose 119 H Lactic Acid Calcium Phosphorus Magnesium Iron TIBC Direct Bilirubin 0.3 H AST 4601 H ALT 1542 H Alkaline Phosphatase 185 H Total Creatine Kinase CK-MB (CK-2) C-Reactive Protein Total Protein 3.8 L Albumin 1.6 L Vitamin B12 Salicylates Acetaminophen Miscellaneous Test Crossmatch 04/01/19 04/01/19 04/01/19 05:23 06:37 08:15 WBC RBC Hgb Hct MCV MCH MCHC RDW Plt Count [place] % (Auto) Lymph # Seg Neuts % (Manual) Lymphocytes % (Manual) Nucleated RBC % Seg Neutrophils # Man Lymphocytes # (Manual) Monocytes # (Manual) PT INR APTT D-Dimer POC ABG pH ABG pH POC ABG pCO2 POC ABG pO2 ABG pO2 ABG HCO3 ABG O2 Saturation ABG Base Excess ABG Hemoglobin VBG pH Oxyhemoglobin Sodium Potassium Chloride Carbon Dioxide BUN Creatinine Glucose POC Glucose 115 H 124 H 138 H Lactic Acid Calcium Phosphorus Magnesium Iron TIBC Direct Bilirubin AST ALT Alkaline Phosphatase Total Creatine Kinase CK-MB (CK-2) C-Reactive Protein Total Protein Albumin Vitamin B12 Salicylates Acetaminophen Miscellaneous Test Crossmatch 04/01/19 04/01/19 04/01/19 09:50 10:10 10:31 WBC RBC Hgb 6.5 L Hct 19.2 L* MCV MCH MCHC RDW Plt Count [place] % (Auto) Lymph # Seg Neuts % (Manual) Lymphocytes % (Manual) Nucleated RBC % Seg Neutrophils # Man Lymphocytes # (Manual) Monocytes # (Manual) PT INR APTT D-Dimer POC ABG pH ABG pH POC ABG pCO2 POC ABG pO2 ABG pO2 ABG HCO3 ABG O2 Saturation ABG Base Excess ABG Hemoglobin VBG pH Oxyhemoglobin Sodium 149 H Potassium 3.5 L Chloride 119.9 H Carbon Dioxide 21 L BUN 33 H Creatinine 0.5 L Glucose 142 H POC Glucose 185 H Lactic Acid Calcium 7.3 L Phosphorus Magnesium Iron TIBC Direct Bilirubin AST 3686 H ALT 1440 H Alkaline Phosphatase 185 H Total Creatine Kinase CK-MB (CK-2) C-Reactive Protein Total Protein 3.7 L Albumin 1.8 L Vitamin B12 Salicylates Acetaminophen Miscellaneous Test Crossmatch 04/01/19 04/01/19 04/01/19 11:35 13:05 14:35 WBC RBC Hgb Hct MCV MCH MCHC RDW Plt Count [place] % (Auto) Lymph # Seg Neuts % (Manual) Lymphocytes % (Manual) Nucleated RBC % Seg Neutrophils # Man Lymphocytes # (Manual) Monocytes # (Manual) PT INR APTT D-Dimer POC ABG pH ABG pH POC ABG pCO2 POC ABG pO2 ABG pO2 ABG HCO3 ABG O2 Saturation ABG Base Excess ABG Hemoglobin VBG pH Oxyhemoglobin Sodium Potassium Chloride Carbon Dioxide BUN Creatinine Glucose POC Glucose 201 H 169 H 134 H Lactic Acid Calcium Phosphorus Magnesium Iron TIBC Direct Bilirubin AST ALT Alkaline Phosphatase Total Creatine Kinase CK-MB (CK-2) C-Reactive Protein Total Protein Albumin Vitamin B12 Salicylates Acetaminophen Miscellaneous Test Crossmatch 04/01/19 04/01/19 04/01/19 17:13 17:14 18:30 WBC RBC Hgb Hct MCV MCH MCHC RDW Plt Count [place] % (Auto) Lymph # Seg Neuts % (Manual) Lymphocytes % (Manual) Nucleated RBC % Seg Neutrophils # Man Lymphocytes # (Manual) Monocytes # (Manual) PT INR APTT D-Dimer 5203.68 H POC ABG pH ABG pH POC ABG pCO2 POC ABG pO2 ABG pO2 ABG HCO3 ABG O2 Saturation ABG Base Excess ABG Hemoglobin VBG pH Oxyhemoglobin Sodium Potassium Chloride Carbon Dioxide BUN Creatinine Glucose POC Glucose 69 L 128 H Lactic Acid Calcium Phosphorus Magnesium Iron TIBC Direct Bilirubin AST ALT Alkaline Phosphatase Total Creatine Kinase CK-MB (CK-2) C-Reactive Protein Total Protein Albumin Vitamin B12 Salicylates Acetaminophen Miscellaneous Test Crossmatch 04/01/19 04/01/19 04/02/19 22:50 Unknown 03:40 WBC RBC Hgb Hct MCV MCH MCHC RDW Plt Count [place] % (Auto) Lymph # Seg Neuts % (Manual) Lymphocytes % (Manual) Nucleated RBC % Seg Neutrophils # Man Lymphocytes # (Manual) Monocytes # (Manual) PT INR APTT D-Dimer POC ABG pH ABG pH POC ABG pCO2 POC ABG pO2 ABG pO2 78.3 L 142.8 H ABG HCO3 15.5 L ABG O2 Saturation ABG Base Excess -3.5 L -8.2 L ABG Hemoglobin 6.8 L 8.2 L VBG pH Oxyhemoglobin 94.3 L Sodium Potassium Chloride Carbon Dioxide BUN Creatinine Glucose POC Glucose 342 H Lactic Acid Calcium Phosphorus Magnesium Iron TIBC Direct Bilirubin AST ALT Alkaline Phosphatase Total Creatine Kinase CK-MB (CK-2) C-Reactive Protein Total Protein Albumin Vitamin B12 Salicylates Acetaminophen Miscellaneous Test Crossmatch 04/02/19 04/02/19 04/02/19 03:49 06:50 07:48 WBC RBC 2.65 L Hgb 8.6 L Hct 25.1 L MCV MCH MCHC RDW 17.6 H Plt Count 48 L [place] % (Auto) Lymph # Seg Neuts % (Manual) Lymphocytes % (Manual) Nucleated RBC % Seg Neutrophils # Man Lymphocytes # (Manual) Monocytes # (Manual) PT INR APTT D-Dimer POC ABG pH ABG pH POC ABG pCO2 POC ABG pO2 ABG pO2 ABG HCO3 ABG O2 Saturation ABG Base Excess ABG Hemoglobin VBG pH Oxyhemoglobin Sodium Potassium Chloride Carbon Dioxide BUN Creatinine Glucose POC Glucose 247 H 200 H Lactic Acid Calcium Phosphorus Magnesium Iron TIBC Direct Bilirubin AST ALT Alkaline Phosphatase Total Creatine Kinase CK-MB (CK-2) C-Reactive Protein Total Protein Albumin Vitamin B12 Salicylates Acetaminophen Miscellaneous Test Crossmatch 04/02/19 04/02/19 04/02/19 07:48 11:18 14:07 WBC RBC Hgb Hct MCV MCH MCHC RDW Plt Count [place] % (Auto) Lymph # Seg Neuts % (Manual) Lymphocytes % (Manual) Nucleated RBC % Seg Neutrophils # Man Lymphocytes # (Manual) Monocytes # (Manual) PT INR APTT D-Dimer POC ABG pH ABG pH POC ABG pCO2 POC ABG pO2 ABG pO2 ABG HCO3 ABG O2 Saturation ABG Base Excess ABG Hemoglobin VBG pH Oxyhemoglobin Sodium Potassium 3.5 L Chloride 115.7 H Carbon Dioxide 19 L BUN 29 H Creatinine 0.5 L Glucose 159 H POC Glucose 154 H 149 H Lactic Acid Calcium 7.5 L Phosphorus Magnesium Iron TIBC Direct Bilirubin AST 1418 H ALT 1134 H Alkaline Phosphatase 242 H Total Creatine Kinase CK-MB (CK-2) C-Reactive Protein Total Protein 4.2 L Albumin 2.1 L Vitamin B12 Salicylates Acetaminophen Miscellaneous Test Crossmatch 04/02/19 04/02/19 04/02/19 18:09 19:46 23:05 WBC RBC Hgb Hct MCV MCH MCHC RDW Plt Count [place] % (Auto) Lymph # Seg Neuts % (Manual) Lymphocytes % (Manual) Nucleated RBC % Seg Neutrophils # Man Lymphocytes # (Manual) Monocytes # (Manual) PT INR APTT D-Dimer POC ABG pH ABG pH POC ABG pCO2 POC ABG pO2 ABG pO2 ABG HCO3 ABG O2 Saturation ABG Base Excess ABG Hemoglobin VBG pH Oxyhemoglobin Sodium Potassium Chloride Carbon Dioxide BUN Creatinine Glucose POC Glucose 188 H 209 H 247 H Lactic Acid Calcium Phosphorus Magnesium Iron TIBC Direct Bilirubin AST ALT Alkaline Phosphatase Total Creatine Kinase CK-MB (CK-2) C-Reactive Protein Total Protein Albumin Vitamin B12 Salicylates Acetaminophen Miscellaneous Test Crossmatch 04/03/19 04/03/19 04/03/19 02:58 03:40 03:40 WBC RBC 2.87 L Hgb 9.3 L Hct 27.0 L MCV MCH MCHC RDW 17.2 H Plt Count 65 L [place] % (Auto) 9.8 H Lymph # 1.1 L Seg Neuts % (Manual) Lymphocytes % (Manual) Nucleated RBC % Seg Neutrophils # Man Lymphocytes # (Manual) Monocytes # (Manual) PT INR APTT D-Dimer POC ABG pH ABG pH POC ABG pCO2 POC ABG pO2 ABG pO2 ABG HCO3 ABG O2 Saturation ABG Base Excess ABG Hemoglobin VBG pH Oxyhemoglobin Sodium 147 H Potassium 3.5 L Chloride 116.7 H Carbon Dioxide 18 L BUN Creatinine 0.4 L Glucose 150 H POC Glucose 166 H Lactic Acid Calcium 8.1 L Phosphorus 2.20 L Magnesium Iron TIBC Direct Bilirubin AST 594 H ALT 861 H Alkaline Phosphatase 299 H Total Creatine Kinase CK-MB (CK-2) C-Reactive Protein Total Protein 4.4 L Albumin 2.1 L Vitamin B12 Salicylates Acetaminophen Miscellaneous Test Crossmatch 04/03/19 04/03/19 04/03/19 05:35 07:02 08:23 WBC RBC Hgb Hct MCV MCH MCHC RDW Plt Count [place] % (Auto) Lymph # Seg Neuts % (Manual) Lymphocytes % (Manual) Nucleated RBC % Seg Neutrophils # Man Lymphocytes # (Manual) Monocytes # (Manual) PT INR APTT D-Dimer POC ABG pH ABG pH POC ABG pCO2 POC ABG pO2 ABG pO2 97.7 H ABG HCO3 19.3 L ABG O2 Saturation ABG Base Excess -5.0 L ABG Hemoglobin 8.0 L VBG pH Oxyhemoglobin Sodium Potassium Chloride Carbon Dioxide BUN Creatinine Glucose POC Glucose 135 H 132 H Lactic Acid Calcium Phosphorus Magnesium Iron TIBC Direct Bilirubin AST ALT Alkaline Phosphatase Total Creatine Kinase CK-MB (CK-2) C-Reactive Protein Total Protein Albumin Vitamin B12 Salicylates Acetaminophen Miscellaneous Test Crossmatch 04/03/19 04/03/19 04/03/19 11:58 15:11 17:53 WBC RBC Hgb Hct MCV MCH MCHC RDW Plt Count [place] % (Auto) Lymph # Seg Neuts % (Manual) Lymphocytes % (Manual) Nucleated RBC % Seg Neutrophils # Man Lymphocytes # (Manual) Monocytes # (Manual) PT INR APTT D-Dimer POC ABG pH ABG pH POC ABG pCO2 POC ABG pO2 ABG pO2 ABG HCO3 ABG O2 Saturation ABG Base Excess ABG Hemoglobin VBG pH Oxyhemoglobin Sodium Potassium Chloride Carbon Dioxide BUN Creatinine Glucose POC Glucose 179 H 213 H 223 H Lactic Acid Calcium Phosphorus Magnesium Iron TIBC Direct Bilirubin AST ALT Alkaline Phosphatase Total Creatine Kinase CK-MB (CK-2) C-Reactive Protein Total Protein Albumin Vitamin B12 Salicylates Acetaminophen Miscellaneous Test Crossmatch 04/03/19 04/04/19 04/04/19 23:06 02:36 06:41 WBC RBC Hgb Hct MCV MCH MCHC RDW Plt Count [place] % (Auto) Lymph # Seg Neuts % (Manual) Lymphocytes % (Manual) Nucleated RBC % Seg Neutrophils # Man Lymphocytes # (Manual) Monocytes # (Manual) PT INR APTT D-Dimer POC ABG pH ABG pH POC ABG pCO2 POC ABG pO2 ABG pO2 ABG HCO3 ABG O2 Saturation ABG Base Excess ABG Hemoglobin VBG pH Oxyhemoglobin Sodium Potassium Chloride Carbon Dioxide BUN Creatinine Glucose POC Glucose 189 H 157 H 131 H Lactic Acid Calcium Phosphorus Magnesium Iron TIBC Direct Bilirubin AST ALT Alkaline Phosphatase Total Creatine Kinase CK-MB (CK-2) C-Reactive Protein Total Protein Albumin Vitamin B12 Salicylates Acetaminophen Miscellaneous Test Crossmatch 04/04/19 04/04/19 04/04/19 11:42 15:45 18:21 WBC RBC Hgb Hct MCV MCH MCHC RDW Plt Count [place] % (Auto) Lymph # Seg Neuts % (Manual) Lymphocytes % (Manual) Nucleated RBC % Seg Neutrophils # Man Lymphocytes # (Manual) Monocytes # (Manual) PT INR APTT D-Dimer POC ABG pH ABG pH POC ABG pCO2 POC ABG pO2 ABG pO2 ABG HCO3 ABG O2 Saturation ABG Base Excess ABG Hemoglobin VBG pH Oxyhemoglobin Sodium Potassium Chloride Carbon Dioxide BUN Creatinine Glucose POC Glucose 233 H 236 H 255 H Lactic Acid Calcium Phosphorus Magnesium Iron TIBC Direct Bilirubin AST ALT Alkaline Phosphatase Total Creatine Kinase CK-MB (CK-2) C-Reactive Protein Total Protein Albumin Vitamin B12 Salicylates Acetaminophen Miscellaneous Test Crossmatch 04/04/19 04/05/19 04/05/19 21:21 03:06 06:05 WBC RBC 2.68 L Hgb 8.5 L Hct 26.3 L MCV 98 H MCH MCHC RDW 17.4 H Plt Count [place] % (Auto) Lymph # Seg Neuts % (Manual) Lymphocytes % (Manual) Nucleated RBC % Seg Neutrophils # Man Lymphocytes # (Manual) Monocytes # (Manual) PT INR APTT D-Dimer POC ABG pH ABG pH POC ABG pCO2 POC ABG pO2 ABG pO2 ABG HCO3 ABG O2 Saturation ABG Base Excess ABG Hemoglobin VBG pH Oxyhemoglobin Sodium Potassium Chloride Carbon Dioxide BUN Creatinine Glucose POC Glucose 132 H 161 H Lactic Acid Calcium Phosphorus Magnesium Iron TIBC Direct Bilirubin AST ALT Alkaline Phosphatase Total Creatine Kinase CK-MB (CK-2) C-Reactive Protein Total Protein Albumin Vitamin B12 Salicylates Acetaminophen Miscellaneous Test Crossmatch 04/05/19 04/05/19 04/05/19 06:05 06:49 10:23 WBC RBC Hgb Hct MCV MCH MCHC RDW Plt Count [place] % (Auto) Lymph # Seg Neuts % (Manual) Lymphocytes % (Manual) Nucleated RBC % Seg Neutrophils # Man Lymphocytes # (Manual) Monocytes # (Manual) PT INR APTT D-Dimer POC ABG pH ABG pH POC ABG pCO2 POC ABG pO2 ABG pO2 ABG HCO3 ABG O2 Saturation ABG Base Excess ABG Hemoglobin VBG pH Oxyhemoglobin Sodium Potassium Chloride 112.5 H Carbon Dioxide BUN Creatinine 0.2 L Glucose 237 H POC Glucose 283 H 296 H Lactic Acid Calcium 7.9 L Phosphorus Magnesium Iron TIBC Direct Bilirubin AST ALT Alkaline Phosphatase Total Creatine Kinase CK-MB (CK-2) C-Reactive Protein Total Protein Albumin Vitamin B12 Salicylates Acetaminophen Miscellaneous Test Crossmatch 04/05/19 04/05/19 04/05/19 14:46 18:19 20:35 WBC RBC Hgb Hct MCV MCH MCHC RDW Plt Count [place] % (Auto) Lymph # Seg Neuts % (Manual) Lymphocytes % (Manual) Nucleated RBC % Seg Neutrophils # Man Lymphocytes # (Manual) Monocytes # (Manual) PT INR APTT D-Dimer POC ABG pH ABG pH POC ABG pCO2 POC ABG pO2 ABG pO2 ABG HCO3 ABG O2 Saturation ABG Base Excess ABG Hemoglobin VBG pH Oxyhemoglobin Sodium Potassium Chloride Carbon Dioxide BUN Creatinine Glucose POC Glucose 225 H 259 H 236 H Lactic Acid Calcium Phosphorus Magnesium Iron TIBC Direct Bilirubin AST ALT Alkaline Phosphatase Total Creatine Kinase CK-MB (CK-2) C-Reactive Protein Total Protein Albumin Vitamin B12 Salicylates Acetaminophen Miscellaneous Test Crossmatch 04/05/19 04/06/19 04/06/19 23:11 00:06 03:14 WBC RBC Hgb Hct MCV MCH MCHC RDW Plt Count [place] % (Auto) Lymph # Seg Neuts % (Manual) Lymphocytes % (Manual) Nucleated RBC % Seg Neutrophils # Man Lymphocytes # (Manual) Monocytes # (Manual) PT INR APTT D-Dimer 4526.86 H POC ABG pH ABG pH POC ABG pCO2 POC ABG pO2 ABG pO2 ABG HCO3 ABG O2 Saturation ABG Base Excess ABG Hemoglobin VBG pH Oxyhemoglobin Sodium Potassium Chloride Carbon Dioxide BUN Creatinine Glucose POC Glucose 205 H 228 H Lactic Acid Calcium Phosphorus Magnesium Iron TIBC Direct Bilirubin AST ALT Alkaline Phosphatase Total Creatine Kinase CK-MB (CK-2) C-Reactive Protein Total Protein Albumin Vitamin B12 Salicylates Acetaminophen Miscellaneous Test Crossmatch 04/06/19 04/06/19 04/06/19 05:20 05:20 07:57 WBC 15.1 H RBC 2.90 L Hgb 9.1 L Hct 28.0 L MCV MCH MCHC RDW 17.3 H Plt Count [place] % (Auto) Lymph # Seg Neuts % (Manual) Lymphocytes % (Manual) Nucleated RBC % Seg Neutrophils # Man Lymphocytes # (Manual) Monocytes # (Manual) PT INR APTT D-Dimer POC ABG pH ABG pH POC ABG pCO2 POC ABG pO2 ABG pO2 ABG HCO3 ABG O2 Saturation ABG Base Excess ABG Hemoglobin VBG pH Oxyhemoglobin Sodium Potassium Chloride Carbon Dioxide BUN Creatinine 0.2 L Glucose 161 H POC Glucose 191 H Lactic Acid Calcium 8.0 L Phosphorus Magnesium Iron TIBC Direct Bilirubin AST ALT Alkaline Phosphatase Total Creatine Kinase CK-MB (CK-2) C-Reactive Protein Total Protein Albumin Vitamin B12 Salicylates Acetaminophen Miscellaneous Test Crossmatch 04/06/19 04/06/19 04/06/19 12:09 18:24 22:07 WBC RBC Hgb Hct MCV MCH MCHC RDW Plt Count [place] % (Auto) Lymph # Seg Neuts % (Manual) Lymphocytes % (Manual) Nucleated RBC % Seg Neutrophils # Man Lymphocytes # (Manual) Monocytes # (Manual) PT INR APTT D-Dimer POC ABG pH ABG pH POC ABG pCO2 POC ABG pO2 ABG pO2 ABG HCO3 ABG O2 Saturation ABG Base Excess ABG Hemoglobin VBG pH Oxyhemoglobin Sodium Potassium Chloride Carbon Dioxide BUN Creatinine Glucose POC Glucose 143 H 161 H 140 H Lactic Acid Calcium Phosphorus Magnesium Iron TIBC Direct Bilirubin AST ALT Alkaline Phosphatase Total Creatine Kinase CK-MB (CK-2) C-Reactive Protein Total Protein Albumin Vitamin B12 Salicylates Acetaminophen Miscellaneous Test Crossmatch 04/07/19 04/07/19 04/07/19 03:00 04:30 04:30 WBC 13.0 H RBC 2.65 L Hgb 8.3 L Hct 25.5 L MCV MCH MCHC RDW 17.0 H Plt Count [place] % (Auto) Lymph # Seg Neuts % (Manual) Lymphocytes % (Manual) Nucleated RBC % Seg Neutrophils # Man Lymphocytes # (Manual) Monocytes # (Manual) PT INR APTT D-Dimer POC ABG pH ABG pH POC ABG pCO2 POC ABG pO2 ABG pO2 ABG HCO3 ABG O2 Saturation ABG Base Excess ABG Hemoglobin VBG pH Oxyhemoglobin Sodium Potassium Chloride Carbon Dioxide BUN Creatinine 0.2 L Glucose 208 H POC Glucose 224 H Lactic Acid Calcium 7.7 L Phosphorus Magnesium Iron TIBC Direct Bilirubin AST ALT Alkaline Phosphatase Total Creatine Kinase CK-MB (CK-2) C-Reactive Protein Total Protein Albumin Vitamin B12 Salicylates Acetaminophen Miscellaneous Test Crossmatch 04/07/19 04/07/19 04/07/19 05:47 08:27 10:33 WBC RBC Hgb Hct MCV MCH MCHC RDW Plt Count [place] % (Auto) Lymph # Seg Neuts % (Manual) Lymphocytes % (Manual) Nucleated RBC % Seg Neutrophils # Man Lymphocytes # (Manual) Monocytes # (Manual) PT INR APTT D-Dimer POC ABG pH ABG pH POC ABG pCO2 POC ABG pO2 ABG pO2 ABG HCO3 ABG O2 Saturation ABG Base Excess ABG Hemoglobin VBG pH Oxyhemoglobin Sodium Potassium Chloride Carbon Dioxide BUN Creatinine Glucose POC Glucose 225 H 176 H 207 H Lactic Acid Calcium Phosphorus Magnesium Iron TIBC Direct Bilirubin AST ALT Alkaline Phosphatase Total Creatine Kinase CK-MB (CK-2) C-Reactive Protein Total Protein Albumin Vitamin B12 Salicylates Acetaminophen Miscellaneous Test Crossmatch 04/07/19 04/07/19 04/07/19 14:13 18:32 22:42 WBC RBC Hgb Hct MCV MCH MCHC RDW Plt Count [place] % (Auto) Lymph # Seg Neuts % (Manual) Lymphocytes % (Manual) Nucleated RBC % Seg Neutrophils # Man Lymphocytes # (Manual) Monocytes # (Manual) PT INR APTT D-Dimer POC ABG pH ABG pH POC ABG pCO2 POC ABG pO2 ABG pO2 ABG HCO3 ABG O2 Saturation ABG Base Excess ABG Hemoglobin VBG pH Oxyhemoglobin Sodium Potassium Chloride Carbon Dioxide BUN Creatinine Glucose POC Glucose 219 H 227 H 238 H Lactic Acid Calcium Phosphorus Magnesium Iron TIBC Direct Bilirubin AST ALT Alkaline Phosphatase Total Creatine Kinase CK-MB (CK-2) C-Reactive Protein Total Protein Albumin Vitamin B12 Salicylates Acetaminophen Miscellaneous Test Crossmatch 04/08/19 04/08/19 04/08/19 02:31 05:37 14:10 WBC RBC Hgb Hct MCV MCH MCHC RDW Plt Count [place] % (Auto) Lymph # Seg Neuts % (Manual) Lymphocytes % (Manual) Nucleated RBC % Seg Neutrophils # Man Lymphocytes # (Manual) Monocytes # (Manual) PT INR APTT D-Dimer POC ABG pH ABG pH POC ABG pCO2 POC ABG pO2 ABG pO2 ABG HCO3 ABG O2 Saturation ABG Base Excess ABG Hemoglobin VBG pH Oxyhemoglobin Sodium Potassium Chloride Carbon Dioxide BUN Creatinine Glucose POC Glucose 194 H 194 H 139 H Lactic Acid Calcium Phosphorus Magnesium Iron TIBC Direct Bilirubin AST ALT Alkaline Phosphatase Total Creatine Kinase CK-MB (CK-2) C-Reactive Protein Total Protein Albumin Vitamin B12 Salicylates Acetaminophen Miscellaneous Test Crossmatch 04/08/19 04/08/19 04/09/19 17:43 23:20 03:28 WBC RBC Hgb Hct MCV MCH MCHC RDW Plt Count [place] % (Auto) Lymph # Seg Neuts % (Manual) Lymphocytes % (Manual) Nucleated RBC % Seg Neutrophils # Man Lymphocytes # (Manual) Monocytes # (Manual) PT INR APTT D-Dimer POC ABG pH ABG pH POC ABG pCO2 POC ABG pO2 ABG pO2 ABG HCO3 ABG O2 Saturation ABG Base Excess ABG Hemoglobin VBG pH Oxyhemoglobin Sodium Potassium Chloride Carbon Dioxide BUN Creatinine Glucose POC Glucose 261 H 277 H 301 H Lactic Acid Calcium Phosphorus Magnesium Iron TIBC Direct Bilirubin AST ALT Alkaline Phosphatase Total Creatine Kinase CK-MB (CK-2) C-Reactive Protein Total Protein Albumin Vitamin B12 Salicylates Acetaminophen Miscellaneous Test Crossmatch 04/09/19 04/09/19 04/09/19 05:35 05:35 05:35 WBC RBC 2.78 L Hgb 9.0 L Hct 26.7 L MCV MCH MCHC RDW 17.0 H Plt Count [place] % (Auto) Lymph # Seg Neuts % (Manual) Lymphocytes % (Manual) Nucleated RBC % Seg Neutrophils # Man Lymphocytes # (Manual) Monocytes # (Manual) PT INR APTT D-Dimer POC ABG pH ABG pH POC ABG pCO2 POC ABG pO2 ABG pO2 ABG HCO3 ABG O2 Saturation ABG Base Excess ABG Hemoglobin VBG pH Oxyhemoglobin Sodium Potassium Chloride Carbon Dioxide 31 H BUN Creatinine 0.2 L Glucose 218 H POC Glucose 240 H Lactic Acid Calcium Phosphorus Magnesium Iron TIBC Direct Bilirubin AST ALT Alkaline Phosphatase Total Creatine Kinase CK-MB (CK-2) C-Reactive Protein Total Protein Albumin Vitamin B12 Salicylates Acetaminophen Miscellaneous Test Crossmatch 04/09/19 04/09/19 04/09/19 09:01 12:23 17:33 WBC RBC Hgb Hct MCV MCH MCHC RDW Plt Count [place] % (Auto) Lymph # Seg Neuts % (Manual) Lymphocytes % (Manual) Nucleated RBC % Seg Neutrophils # Man Lymphocytes # (Manual) Monocytes # (Manual) PT INR APTT D-Dimer POC ABG pH ABG pH POC ABG pCO2 POC ABG pO2 ABG pO2 ABG HCO3 ABG O2 Saturation ABG Base Excess ABG Hemoglobin VBG pH Oxyhemoglobin Sodium Potassium Chloride Carbon Dioxide BUN Creatinine Glucose POC Glucose 160 H 162 H 149 H Lactic Acid Calcium Phosphorus Magnesium Iron TIBC Direct Bilirubin AST ALT Alkaline Phosphatase Total Creatine Kinase CK-MB (CK-2) C-Reactive Protein Total Protein Albumin Vitamin B12 Salicylates Acetaminophen Miscellaneous Test Crossmatch 04/09/19 04/09/19 04/10/19 21:26 22:28 03:16 WBC RBC Hgb Hct MCV MCH MCHC RDW Plt Count [place] % (Auto) Lymph # Seg Neuts % (Manual) Lymphocytes % (Manual) Nucleated RBC % Seg Neutrophils # Man Lymphocytes # (Manual) Monocytes # (Manual) PT INR APTT D-Dimer POC ABG pH ABG pH POC ABG pCO2 POC ABG pO2 ABG pO2 ABG HCO3 ABG O2 Saturation ABG Base Excess ABG Hemoglobin VBG pH Oxyhemoglobin Sodium Potassium Chloride Carbon Dioxide BUN Creatinine Glucose POC Glucose 196 H 224 H 163 H Lactic Acid Calcium Phosphorus Magnesium Iron TIBC Direct Bilirubin AST ALT Alkaline Phosphatase Total Creatine Kinase CK-MB (CK-2) C-Reactive Protein Total Protein Albumin Vitamin B12 Salicylates Acetaminophen Miscellaneous Test Crossmatch 04/10/19 04/10/19 04/10/19 04:15 04:15 05:30 WBC RBC 2.88 L Hgb 9.2 L Hct 27.9 L MCV MCH MCHC RDW 17.0 H Plt Count 454 H [place] % (Auto) Lymph # Seg Neuts % (Manual) Lymphocytes % (Manual) Nucleated RBC % Seg Neutrophils # Man Lymphocytes # (Manual) Monocytes # (Manual) PT INR APTT D-Dimer POC ABG pH ABG pH POC ABG pCO2 POC ABG pO2 ABG pO2 ABG HCO3 ABG O2 Saturation ABG Base Excess ABG Hemoglobin VBG pH Oxyhemoglobin Sodium Potassium Chloride Carbon Dioxide 32 H BUN Creatinine 0.2 L Glucose 126 H POC Glucose 135 H Lactic Acid Calcium Phosphorus Magnesium Iron TIBC Direct Bilirubin AST ALT Alkaline Phosphatase Total Creatine Kinase CK-MB (CK-2) C-Reactive Protein Total Protein Albumin Vitamin B12 Salicylates Acetaminophen Miscellaneous Test Crossmatch 04/10/19 04/10/19 04/10/19 12:14 15:29 23:38 WBC RBC Hgb Hct MCV MCH MCHC RDW Plt Count [place] % (Auto) Lymph # Seg Neuts % (Manual) Lymphocytes % (Manual) Nucleated RBC % Seg Neutrophils # Man Lymphocytes # (Manual) Monocytes # (Manual) PT INR APTT D-Dimer POC ABG pH ABG pH POC ABG pCO2 POC ABG pO2 ABG pO2 ABG HCO3 ABG O2 Saturation ABG Base Excess ABG Hemoglobin VBG pH Oxyhemoglobin Sodium Potassium Chloride Carbon Dioxide BUN Creatinine Glucose POC Glucose 109 H 149 H 268 H Lactic Acid Calcium Phosphorus Magnesium Iron TIBC Direct Bilirubin AST ALT Alkaline Phosphatase Total Creatine Kinase CK-MB (CK-2) C-Reactive Protein Total Protein Albumin Vitamin B12 Salicylates Acetaminophen Miscellaneous Test Crossmatch 04/11/19 04/11/19 04/11/19 05:27 12:08 18:08 WBC RBC Hgb Hct MCV MCH MCHC RDW Plt Count [place] % (Auto) Lymph # Seg Neuts % (Manual) Lymphocytes % (Manual) Nucleated RBC % Seg Neutrophils # Man Lymphocytes # (Manual) Monocytes # (Manual) PT INR APTT D-Dimer POC ABG pH ABG pH POC ABG pCO2 POC ABG pO2 ABG pO2 ABG HCO3 ABG O2 Saturation ABG Base Excess ABG Hemoglobin VBG pH Oxyhemoglobin Sodium Potassium Chloride Carbon Dioxide BUN Creatinine Glucose POC Glucose 109 H 185 H 190 H Lactic Acid Calcium Phosphorus Magnesium Iron TIBC Direct Bilirubin AST ALT Alkaline Phosphatase Total Creatine Kinase CK-MB (CK-2) C-Reactive Protein Total Protein Albumin Vitamin B12 Salicylates Acetaminophen Miscellaneous Test Crossmatch 04/11/19 04/12/19 04/12/19 23:23 06:00 11:42 WBC RBC Hgb Hct MCV MCH MCHC RDW Plt Count [place] % (Auto) Lymph # Seg Neuts % (Manual) Lymphocytes % (Manual) Nucleated RBC % Seg Neutrophils # Man Lymphocytes # (Manual) Monocytes # (Manual) PT INR APTT D-Dimer POC ABG pH ABG pH POC ABG pCO2 POC ABG pO2 ABG pO2 ABG HCO3 ABG O2 Saturation ABG Base Excess ABG Hemoglobin VBG pH Oxyhemoglobin Sodium Potassium Chloride Carbon Dioxide BUN Creatinine Glucose POC Glucose 127 H 201 H 161 H Lactic Acid Calcium Phosphorus Magnesium Iron TIBC Direct Bilirubin AST ALT Alkaline Phosphatase Total Creatine Kinase CK-MB (CK-2) C-Reactive Protein Total Protein Albumin Vitamin B12 Salicylates Acetaminophen Miscellaneous Test Crossmatch 04/12/19 04/12/19 04/12/19 17:56 20:07 21:59 WBC RBC Hgb Hct MCV MCH MCHC RDW Plt Count [place] % (Auto) Lymph # Seg Neuts % (Manual) Lymphocytes % (Manual) Nucleated RBC % Seg Neutrophils # Man Lymphocytes # (Manual) Monocytes # (Manual) PT INR APTT D-Dimer POC ABG pH ABG pH POC ABG pCO2 POC ABG pO2 ABG pO2 ABG HCO3 ABG O2 Saturation ABG Base Excess ABG Hemoglobin VBG pH Oxyhemoglobin Sodium Potassium Chloride Carbon Dioxide BUN Creatinine Glucose POC Glucose 145 H 158 H 203 H Lactic Acid Calcium Phosphorus Magnesium Iron TIBC Direct Bilirubin AST ALT Alkaline Phosphatase Total Creatine Kinase CK-MB (CK-2) C-Reactive Protein Total Protein Albumin Vitamin B12 Salicylates Acetaminophen Miscellaneous Test Crossmatch 04/12/19 04/13/19 04/13/19 23:37 08:50 08:50 WBC 15.7 H RBC 3.12 L Hgb Hct 30.2 L MCV MCH 33 H MCHC RDW 18.0 H Plt Count 678 H [place] % (Auto) Lymph # Seg Neuts % (Manual) Lymphocytes % (Manual) Nucleated RBC % Seg Neutrophils # Man Lymphocytes # (Manual) Monocytes # (Manual) PT INR APTT D-Dimer POC ABG pH ABG pH POC ABG pCO2 POC ABG pO2 ABG pO2 ABG HCO3 ABG O2 Saturation ABG Base Excess ABG Hemoglobin VBG pH Oxyhemoglobin Sodium Potassium Chloride Carbon Dioxide BUN Creatinine < 0.2 L Glucose 46 L POC Glucose 238 H Lactic Acid Calcium Phosphorus Magnesium Iron TIBC Direct Bilirubin AST ALT Alkaline Phosphatase Total Creatine Kinase CK-MB (CK-2) C-Reactive Protein Total Protein Albumin Vitamin B12 Salicylates Acetaminophen Miscellaneous Test Crossmatch 04/13/19 04/13/19 04/13/19 11:56 17:27 23:57 WBC RBC Hgb Hct MCV MCH MCHC RDW Plt Count [place] % (Auto) Lymph # Seg Neuts % (Manual) Lymphocytes % (Manual) Nucleated RBC % Seg Neutrophils # Man Lymphocytes # (Manual) Monocytes # (Manual) PT INR APTT D-Dimer POC ABG pH ABG pH POC ABG pCO2 POC ABG pO2 ABG pO2 ABG HCO3 ABG O2 Saturation ABG Base Excess ABG Hemoglobin VBG pH Oxyhemoglobin Sodium Potassium Chloride Carbon Dioxide BUN Creatinine Glucose POC Glucose 40 L 66 L 65 L Lactic Acid Calcium Phosphorus Magnesium Iron TIBC Direct Bilirubin AST ALT Alkaline Phosphatase Total Creatine Kinase CK-MB (CK-2) C-Reactive Protein Total Protein Albumin Vitamin B12 Salicylates Acetaminophen Miscellaneous Test Crossmatch 04/14/19 04/14/19 04/14/19 05:28 08:20 08:20 WBC 17.8 H RBC 3.26 L Hgb Hct MCV 98 H MCH MCHC RDW 18.3 H Plt Count 622 H [place] % (Auto) Lymph # Seg Neuts % (Manual) Lymphocytes % (Manual) Nucleated RBC % Seg Neutrophils # Man Lymphocytes # (Manual) Monocytes # (Manual) PT INR APTT D-Dimer POC ABG pH ABG pH POC ABG pCO2 POC ABG pO2 ABG pO2 ABG HCO3 ABG O2 Saturation ABG Base Excess ABG Hemoglobin VBG pH Oxyhemoglobin Sodium Potassium Chloride Carbon Dioxide BUN 6 L Creatinine < 0.2 L Glucose 154 H POC Glucose 149 H Lactic Acid Calcium Phosphorus Magnesium Iron TIBC Direct Bilirubin AST ALT Alkaline Phosphatase Total Creatine Kinase CK-MB (CK-2) C-Reactive Protein Total Protein Albumin Vitamin B12 Salicylates Acetaminophen Miscellaneous Test Crossmatch 04/14/19 04/14/19 04/14/19 12:16 17:54 23:35 WBC RBC Hgb Hct MCV MCH MCHC RDW Plt Count [place] % (Auto) Lymph # Seg Neuts % (Manual) Lymphocytes % (Manual) Nucleated RBC % Seg Neutrophils # Man Lymphocytes # (Manual) Monocytes # (Manual) PT INR APTT D-Dimer POC ABG pH ABG pH POC ABG pCO2 POC ABG pO2 ABG pO2 ABG HCO3 ABG O2 Saturation ABG Base Excess ABG Hemoglobin VBG pH Oxyhemoglobin Sodium Potassium Chloride Carbon Dioxide BUN Creatinine Glucose POC Glucose 176 H 224 H 173 H Lactic Acid Calcium Phosphorus Magnesium Iron TIBC Direct Bilirubin AST ALT Alkaline Phosphatase Total Creatine Kinase CK-MB (CK-2) C-Reactive Protein Total Protein Albumin Vitamin B12 Salicylates Acetaminophen Miscellaneous Test Crossmatch 04/15/19 04/15/19 04/15/19 05:44 12:44 18:06 WBC RBC Hgb Hct MCV MCH MCHC RDW Plt Count [place] % (Auto) Lymph # Seg Neuts % (Manual) Lymphocytes % (Manual) Nucleated RBC % Seg Neutrophils # Man Lymphocytes # (Manual) Monocytes # (Manual) PT INR APTT D-Dimer POC ABG pH 7.461 H ABG pH POC ABG pCO2 45.5 H POC ABG pO2 ABG pO2 ABG HCO3 ABG O2 Saturation ABG Base Excess ABG Hemoglobin VBG pH Oxyhemoglobin Sodium Potassium Chloride Carbon Dioxide BUN Creatinine Glucose POC Glucose 255 H 365 H Lactic Acid Calcium Phosphorus Magnesium Iron TIBC Direct Bilirubin AST ALT Alkaline Phosphatase Total Creatine Kinase CK-MB (CK-2) C-Reactive Protein Total Protein Albumin Vitamin B12 Salicylates Acetaminophen Miscellaneous Test Crossmatch 04/15/19 04/15/19 04/16/19 18:06 23:34 00:40 WBC RBC Hgb Hct MCV MCH MCHC RDW Plt Count [place] % (Auto) Lymph # Seg Neuts % (Manual) Lymphocytes % (Manual) Nucleated RBC % Seg Neutrophils # Man Lymphocytes # (Manual) Monocytes # (Manual) PT INR APTT D-Dimer POC ABG pH ABG pH POC ABG pCO2 POC ABG pO2 ABG pO2 ABG HCO3 ABG O2 Saturation ABG Base Excess ABG Hemoglobin VBG pH Oxyhemoglobin Sodium Potassium Chloride Carbon Dioxide BUN Creatinine Glucose POC Glucose 157 H 56 L 107 H Lactic Acid Calcium Phosphorus Magnesium Iron TIBC Direct Bilirubin AST ALT Alkaline Phosphatase Total Creatine Kinase CK-MB (CK-2) C-Reactive Protein Total Protein Albumin Vitamin B12 Salicylates Acetaminophen Miscellaneous Test Crossmatch 04/16/19 04/16/19 04/16/19 09:06 09:06 11:21 WBC 12.9 H RBC 2.95 L Hgb 9.7 L Hct 28.9 L MCV 98 H MCH 33 H MCHC RDW 17.7 H Plt Count 581 H [place] % (Auto) Lymph # Seg Neuts % (Manual) Lymphocytes % (Manual) Nucleated RBC % Seg Neutrophils # Man Lymphocytes # (Manual) Monocytes # (Manual) PT INR APTT D-Dimer POC ABG pH ABG pH POC ABG pCO2 POC ABG pO2 ABG pO2 ABG HCO3 ABG O2 Saturation ABG Base Excess ABG Hemoglobin VBG pH Oxyhemoglobin Sodium Potassium Chloride Carbon Dioxide 31 H BUN Creatinine 0.2 L Glucose 155 H POC Glucose 184 H Lactic Acid Calcium Phosphorus Magnesium Iron TIBC Direct Bilirubin AST ALT Alkaline Phosphatase Total Creatine Kinase CK-MB (CK-2) C-Reactive Protein Total Protein Albumin Vitamin B12 Salicylates Acetaminophen Miscellaneous Test Crossmatch 04/16/19 04/16/19 04/16/19 17:28 20:17 23:09 WBC RBC Hgb Hct MCV MCH MCHC RDW Plt Count [place] % (Auto) Lymph # Seg Neuts % (Manual) Lymphocytes % (Manual) Nucleated RBC % Seg Neutrophils # Man Lymphocytes # (Manual) Monocytes # (Manual) PT INR APTT D-Dimer POC ABG pH 7.479 H ABG pH POC ABG pCO2 POC ABG pO2 71 L ABG pO2 ABG HCO3 ABG O2 Saturation ABG Base Excess ABG Hemoglobin VBG pH Oxyhemoglobin Sodium Potassium Chloride Carbon Dioxide BUN Creatinine Glucose POC Glucose 173 H 178 H Lactic Acid Calcium Phosphorus Magnesium Iron TIBC Direct Bilirubin AST ALT Alkaline Phosphatase Total Creatine Kinase CK-MB (CK-2) C-Reactive Protein Total Protein Albumin Vitamin B12 Salicylates Acetaminophen Miscellaneous Test Crossmatch 04/17/19 04/17/19 04/17/19 05:02 11:39 12:48 WBC RBC Hgb Hct MCV MCH MCHC RDW Plt Count [place] % (Auto) Lymph # Seg Neuts % (Manual) Lymphocytes % (Manual) Nucleated RBC % Seg Neutrophils # Man Lymphocytes # (Manual) Monocytes # (Manual) PT INR APTT D-Dimer POC ABG pH 7.557 H ABG pH POC ABG pCO2 32.8 L POC ABG pO2 149 H ABG pO2 ABG HCO3 ABG O2 Saturation ABG Base Excess ABG Hemoglobin VBG pH Oxyhemoglobin Sodium Potassium Chloride Carbon Dioxide BUN Creatinine Glucose POC Glucose 252 H 124 H Lactic Acid Calcium Phosphorus Magnesium Iron TIBC Direct Bilirubin AST ALT Alkaline Phosphatase Total Creatine Kinase CK-MB (CK-2) C-Reactive Protein Total Protein Albumin Vitamin B12 Salicylates Acetaminophen Miscellaneous Test Crossmatch 04/17/19 04/18/19 04/18/19 23:31 05:32 11:34 WBC RBC Hgb Hct MCV MCH MCHC RDW Plt Count [place] % (Auto) Lymph # Seg Neuts % (Manual) Lymphocytes % (Manual) Nucleated RBC % Seg Neutrophils # Man Lymphocytes # (Manual) Monocytes # (Manual) PT INR APTT D-Dimer POC ABG pH ABG pH POC ABG pCO2 POC ABG pO2 ABG pO2 ABG HCO3 ABG O2 Saturation ABG Base Excess ABG Hemoglobin VBG pH Oxyhemoglobin Sodium Potassium Chloride Carbon Dioxide BUN Creatinine Glucose POC Glucose 149 H 334 H 344 H Lactic Acid Calcium Phosphorus Magnesium Iron TIBC Direct Bilirubin AST ALT Alkaline Phosphatase Total Creatine Kinase CK-MB (CK-2) C-Reactive Protein Total Protein Albumin Vitamin B12 Salicylates Acetaminophen Miscellaneous Test Crossmatch 04/18/19 04/18/19 04/18/19 17:43 18:14 23:35 WBC RBC Hgb Hct MCV MCH MCHC RDW Plt Count [place] % (Auto) Lymph # Seg Neuts % (Manual) Lymphocytes % (Manual) Nucleated RBC % Seg Neutrophils # Man Lymphocytes # (Manual) Monocytes # (Manual) PT INR APTT D-Dimer POC ABG pH ABG pH POC ABG pCO2 49.2 H POC ABG pO2 ABG pO2 ABG HCO3 ABG O2 Saturation ABG Base Excess ABG Hemoglobin VBG pH Oxyhemoglobin Sodium Potassium Chloride Carbon Dioxide BUN Creatinine Glucose POC Glucose 289 H 312 H Lactic Acid Calcium Phosphorus Magnesium Iron TIBC Direct Bilirubin AST ALT Alkaline Phosphatase Total Creatine Kinase CK-MB (CK-2) C-Reactive Protein Total Protein Albumin Vitamin B12 Salicylates Acetaminophen Miscellaneous Test Crossmatch 04/19/19 04/19/19 04/19/19 04:35 05:55 12:26 WBC RBC Hgb Hct MCV MCH MCHC RDW Plt Count [place] % (Auto) Lymph # Seg Neuts % (Manual) Lymphocytes % (Manual) Nucleated RBC % Seg Neutrophils # Man Lymphocytes # (Manual) Monocytes # (Manual) PT INR APTT D-Dimer POC ABG pH 7.565 H ABG pH POC ABG pCO2 POC ABG pO2 ABG pO2 ABG HCO3 ABG O2 Saturation ABG Base Excess ABG Hemoglobin VBG pH Oxyhemoglobin Sodium Potassium Chloride Carbon Dioxide BUN Creatinine Glucose POC Glucose 172 H 271 H Lactic Acid Calcium Phosphorus Magnesium Iron TIBC Direct Bilirubin AST ALT Alkaline Phosphatase Total Creatine Kinase CK-MB (CK-2) C-Reactive Protein Total Protein Albumin Vitamin B12 Salicylates Acetaminophen Miscellaneous Test Crossmatch 04/19/19 04/19/19 04/19/19 17:54 21:10 23:35 WBC RBC Hgb Hct MCV MCH MCHC RDW Plt Count [place] % (Auto) Lymph # Seg Neuts % (Manual) Lymphocytes % (Manual) Nucleated RBC % Seg Neutrophils # Man Lymphocytes # (Manual) Monocytes # (Manual) PT INR APTT D-Dimer POC ABG pH ABG pH POC ABG pCO2 POC ABG pO2 ABG pO2 ABG HCO3 ABG O2 Saturation ABG Base Excess ABG Hemoglobin VBG pH Oxyhemoglobin Sodium Potassium Chloride Carbon Dioxide BUN Creatinine Glucose POC Glucose 229 H 189 H 131 H Lactic Acid Calcium Phosphorus Magnesium Iron TIBC Direct Bilirubin AST ALT Alkaline Phosphatase Total Creatine Kinase CK-MB (CK-2) C-Reactive Protein Total Protein Albumin Vitamin B12 Salicylates Acetaminophen Miscellaneous Test Crossmatch 04/20/19 04/20/19 04/20/19 05:42 11:58 17:32 WBC RBC Hgb Hct MCV MCH MCHC RDW Plt Count [place] % (Auto) Lymph # Seg Neuts % (Manual) Lymphocytes % (Manual) Nucleated RBC % Seg Neutrophils # Man Lymphocytes # (Manual) Monocytes # (Manual) PT INR APTT D-Dimer POC ABG pH ABG pH POC ABG pCO2 POC ABG pO2 ABG pO2 ABG HCO3 ABG O2 Saturation ABG Base Excess ABG Hemoglobin VBG pH Oxyhemoglobin Sodium Potassium Chloride Carbon Dioxide BUN Creatinine Glucose POC Glucose 289 H 265 H 232 H Lactic Acid Calcium Phosphorus Magnesium Iron TIBC Direct Bilirubin AST ALT Alkaline Phosphatase Total Creatine Kinase CK-MB (CK-2) C-Reactive Protein Total Protein Albumin Vitamin B12 Salicylates Acetaminophen Miscellaneous Test Crossmatch 04/21/19 04/21/19 04/21/19 00:02 05:13 12:41 WBC RBC Hgb Hct MCV MCH MCHC RDW Plt Count [place] % (Auto) Lymph # Seg Neuts % (Manual) Lymphocytes % (Manual) Nucleated RBC % Seg Neutrophils # Man Lymphocytes # (Manual) Monocytes # (Manual) PT INR APTT D-Dimer POC ABG pH ABG pH POC ABG pCO2 POC ABG pO2 ABG pO2 ABG HCO3 ABG O2 Saturation ABG Base Excess ABG Hemoglobin VBG pH Oxyhemoglobin Sodium Potassium Chloride Carbon Dioxide BUN Creatinine Glucose POC Glucose 126 H 233 H 205 H Lactic Acid Calcium Phosphorus Magnesium Iron TIBC Direct Bilirubin AST ALT Alkaline Phosphatase Total Creatine Kinase CK-MB (CK-2) C-Reactive Protein Total Protein Albumin Vitamin B12 Salicylates Acetaminophen Miscellaneous Test Crossmatch 04/21/19 04/22/19 04/22/19 23:42 03:57 03:57 WBC 11.5 H RBC 3.44 L Hgb Hct MCV MCH MCHC RDW 16.3 H Plt Count 510 H [place] % (Auto) Lymph # Seg Neuts % (Manual) Lymphocytes % (Manual) Nucleated RBC % Seg Neutrophils # Man Lymphocytes # (Manual) Monocytes # (Manual) PT INR APTT D-Dimer POC ABG pH ABG pH POC ABG pCO2 POC ABG pO2 ABG pO2 ABG HCO3 ABG O2 Saturation ABG Base Excess ABG Hemoglobin VBG pH Oxyhemoglobin Sodium Potassium Chloride 96.3 L Carbon Dioxide BUN Creatinine 0.2 L Glucose 333 H POC Glucose 149 H Lactic Acid Calcium Phosphorus Magnesium Iron TIBC Direct Bilirubin AST 60 H ALT Alkaline Phosphatase 204 H Total Creatine Kinase CK-MB (CK-2) C-Reactive Protein Total Protein Albumin 3.1 L Vitamin B12 Salicylates Acetaminophen Miscellaneous Test Crossmatch 04/22/19 04/22/19 04/22/19 05:18 12:03 18:17 WBC RBC Hgb Hct MCV MCH MCHC RDW Plt Count [place] % (Auto) Lymph # Seg Neuts % (Manual) Lymphocytes % (Manual) Nucleated RBC % Seg Neutrophils # Man Lymphocytes # (Manual) Monocytes # (Manual) PT INR APTT D-Dimer POC ABG pH ABG pH POC ABG pCO2 POC ABG pO2 ABG pO2 ABG HCO3 ABG O2 Saturation ABG Base Excess ABG Hemoglobin VBG pH Oxyhemoglobin Sodium Potassium Chloride Carbon Dioxide BUN Creatinine Glucose POC Glucose 345 H 308 H 169 H Lactic Acid Calcium Phosphorus Magnesium Iron TIBC Direct Bilirubin AST ALT Alkaline Phosphatase Total Creatine Kinase CK-MB (CK-2) C-Reactive Protein Total Protein Albumin Vitamin B12 Salicylates Acetaminophen Miscellaneous Test Crossmatch 04/23/19 04/23/19 04/23/19 00:14 05:43 11:15 WBC RBC Hgb Hct MCV MCH MCHC RDW Plt Count [place] % (Auto) Lymph # Seg Neuts % (Manual) Lymphocytes % (Manual) Nucleated RBC % Seg Neutrophils # Man Lymphocytes # (Manual) Monocytes # (Manual) PT INR APTT D-Dimer POC ABG pH ABG pH POC ABG pCO2 POC ABG pO2 ABG pO2 ABG HCO3 ABG O2 Saturation ABG Base Excess ABG Hemoglobin VBG pH Oxyhemoglobin Sodium Potassium Chloride Carbon Dioxide BUN Creatinine Glucose POC Glucose 192 H 260 H 186 H Lactic Acid Calcium Phosphorus Magnesium Iron TIBC Direct Bilirubin AST ALT Alkaline Phosphatase Total Creatine Kinase CK-MB (CK-2) C-Reactive Protein Total Protein Albumin Vitamin B12 Salicylates Acetaminophen Miscellaneous Test Crossmatch 04/23/19 04/23/19 04/24/19 15:44 21:30 00:09 WBC RBC Hgb Hct MCV MCH MCHC RDW Plt Count [place] % (Auto) Lymph # Seg Neuts % (Manual) Lymphocytes % (Manual) Nucleated RBC % Seg Neutrophils # Man Lymphocytes # (Manual) Monocytes # (Manual) PT INR APTT D-Dimer POC ABG pH ABG pH POC ABG pCO2 POC ABG pO2 ABG pO2 ABG HCO3 ABG O2 Saturation ABG Base Excess ABG Hemoglobin VBG pH Oxyhemoglobin Sodium Potassium Chloride Carbon Dioxide BUN Creatinine Glucose POC Glucose 164 H 407 H 280 H Lactic Acid Calcium Phosphorus Magnesium Iron TIBC Direct Bilirubin AST ALT Alkaline Phosphatase Total Creatine Kinase CK-MB (CK-2) C-Reactive Protein Total Protein Albumin Vitamin B12 Salicylates Acetaminophen Miscellaneous Test Crossmatch 04/24/19 04/24/19 06:01 06:39 WBC RBC Hgb Hct MCV MCH MCHC RDW Plt Count [place] % (Auto) Lymph # Seg Neuts % (Manual) Lymphocytes % (Manual) Nucleated RBC % Seg Neutrophils # Man Lymphocytes # (Manual) Monocytes # (Manual) PT INR APTT D-Dimer POC ABG pH ABG pH POC ABG pCO2 POC ABG pO2 ABG pO2 ABG HCO3 ABG O2 Saturation ABG Base Excess ABG Hemoglobin VBG pH Oxyhemoglobin Sodium Potassium Chloride Carbon Dioxide BUN Creatinine Glucose POC Glucose 65 L 125 H Lactic Acid Calcium Phosphorus Magnesium Iron TIBC Direct Bilirubin AST ALT Alkaline Phosphatase Total Creatine Kinase CK-MB (CK-2) C-Reactive Protein Total Protein Albumin Vitamin B12 Salicylates Acetaminophen Miscellaneous Test Crossmatch Allied health notes reviewed: nursing
[2019-04-24] MEDS: KEPPRA PO SCH ×2 (10:52→22:51)
[2019-04-24] MEDS: ENOXAPARIN SUB-Q SCH (10:52)
[2019-04-24] MEDS: ROBINUL FEEDTUBE SCH ×3 (10:52→20:44)
[2019-04-24] MEDS: SODIUM CHLORIDE FLUSH SYRINGE 10 ML IV SCH ×2 (10:52→22:51)
[2019-04-24] MEDS: PEPCID PO SCH ×2 (10:52→22:51)
[2019-04-24] MEDS: METOPROLOL PO SCH ×2 (11:05→22:56)
--- NOTE | 2019-04-24 12:57 | Progress Note ---
Subjective Date of service: 04/24/19 Principal diagnosis: Ac Hypoxemic Resp Failure; DKA; Severe sepsis with shock; ANGELICA Interval history: Assessment and plan: Patient is a 29 year old woman with a history of diabetes was brought to the emergency room following a cardiac arrest. Her last well-known time was 10:30 in the morning, she was traveling with a friend, she was unresponsive in the back seat. EMS was called, CPR was started and continued here in the emergency room. Patient was intubated in the ER, noted hypotensive started on dobutamine, epinephrine and Levophed drip, given IV fluids, found to be in DKA with BG ~2200, several metabolic derangements - placed on insulin drip and admitted to ICU. BP improved and she was weaned off pressors. Still intubated on vent, minimal response. patient has been in coma for several days, no improvement. She has a DNR status order. Uncontrolled DM type 1 with hyperglycemia - cont. basal insulin Lantus - increase SSI Acute respiratory failure s/p intubated, off vent - s/p trach and peg - Tracheostomy re-adjusted on 04/17/19 - on vent, cont nebs, - s/p Trach POD 3 - Pulm following - Aspiration precautions - VAP bundle Acute anoxic encephalopathy, POA - from cardiac arrest -MR concerning for anoxic Brain injury Cardiac arrest s/p resuscitation - likely 2/2 severe hyperglycemia - preserved EF on 2D echo Generalized Anasacara -Given a dose of Bumex s/p DKA, severe Shock hypotensive +/- sepsis - resolved Now off pressors. Was on vasopressin, Levophed, Phenylephrine Sepsis with possible aspiration PNA - evident on CXR on admission with left sided infiltrates - Competed abx - Abx discontinued following notation that no evidence of liver lesion not consistent with infection per ID - Leucocytosis and thrombocytosis are likely reactive from hepatic subcapsular hematoma Head lice - multiple dosing of Permethin given Acute renal failure, likely vasomotor nephropathy - resolved Anemia, acute on chronic - no sign of blood loss s/p 2 Units PRBC transfused Hyperkalemia, resolved with fluid and insulin Hypernatremia Resolved hypokalemia, resolved Shock liver with elevated LFT and Coagulopathy - due to cardiac arrest and hypotension - cont to monitor Liver lesion ID Physician following Discontinued abx, not consistent with infection as noted above Hypermagnesemia - monitor levels as needed Hyperphosphatemia -cont to monitor, improved Stage 1 sacral ulcer, poa - upper ext blisters - pressure ulcer prevention strategies - wound care VTE Prophylaxis with Lovenox Poor prognosis DNR status Disposition: continue inpatient care, await placement in [place], [place] 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 Follow-up on current diagnosis respiratory failure. No overnight events reported to me. waiting for senior living facility placement Hospitalist Physical - Physical exam Narrative exam: Gen: On full MVS and tolerating HEENT: facial edema, atraumatic. Trach bed clean with no drainage, opens eyes spontanously Neck: supple, no JVD Heart: S1 and S2 reg, Lungs: Clear to auscultation, no rhonchi Abd: soft, benign Ext: leg edema, no cyanosis Neuro: Eyes open does not follow commands, Skin: see full skin assessment. Stage 1 sacral ulcer Objective - Constitutional Vitals: Vital Signs - 12hr 04/24/19 04/24/19 04/24/19 04:54 08:46 10:56 Temperature 98.3 F Pulse Rate 111 H 119 H Respiratory 24 22 Rate Blood Pressure 129/84 110/80 O2 Sat by Pulse 94 94 94 Oximetry O2 Sat by Pulse 97 Oximetry [ Assessment] 04/24/19 04/24/19 04/24/19 10:58 11:05 11:06 Temperature 97.9 F Pulse Rate 123 H 118 H Respiratory Rate Blood Pressure 110/80 O2 Sat by Pulse 96 Oximetry O2 Sat by Pulse Oximetry [ Assessment] - Labs CBC & Chem 7: 04/22/19 03:57 04/22/19 03:57 Labs: Abnormal lab results 04/23/19 04/23/19 04/24/19 Range/Units 15:44 21:30 00:09 POC Glucose 164 H 407 H 280 H (70-105) 04/24/19 04/24/19 Range/Units 06:01 06:39 POC Glucose 65 L 125 H (70-105)
[2019-04-24] MEDS: LANTUS SUB-Q SCH (22:58)
[2019-04-25] MEDS: HumaLOG SUB-Q SCH ×4 (01:44→18:05)
[2019-04-25] MEDS: ENOXAPARIN SUB-Q SCH (10:03)
[2019-04-25] MEDS: SODIUM CHLORIDE FLUSH SYRINGE 10 ML IV SCH ×2 (10:03→22:57)
[2019-04-25] MEDS: ROBINUL FEEDTUBE SCH ×3 (10:03→22:52)
[2019-04-25] MEDS: KEPPRA PO SCH ×2 (10:03→22:52)
[2019-04-25] MEDS: PEPCID PO SCH ×2 (10:03→22:52)
[2019-04-25] MEDS: METOPROLOL PO SCH ×2 (10:25→22:53)
--- NOTE | 2019-04-25 11:01 | Progress Note ---
Assessment and Plan Assessment and plan: Uncontrolled DM type 1 with hyperglycemia - cont. basal insulin Lantus - increase SSI Acute respiratory failure s/p intubated, off vent - s/p trach and peg - Tracheostomy re-adjusted on 04/17/19 - on vent, cont nebs, - s/p Trach POD 3 - Pulm following - Aspiration precautions - VAP bundle Acute anoxic encephalopathy, POA - from cardiac arrest -MR concerning for anoxic Brain injury Cardiac arrest s/p resuscitation - likely 2/2 severe hyperglycemia - preserved EF on 2D echo Generalized Anasacara -Given a dose of Bumex s/p DKA, severe Shock hypotensive +/- sepsis - resolved Now off pressors. Was on vasopressin, Levophed, Phenylephrine Sepsis with possible aspiration PNA - evident on CXR on admission with left sided infiltrates - Competed abx - Abx discontinued following notation that no evidence of liver lesion not consistent with infection per ID - Leucocytosis and thrombocytosis are likely reactive from hepatic subcapsular hematoma Head lice - multiple dosing of Permethin given Acute renal failure, likely vasomotor nephropathy - resolved Anemia, acute on chronic - no sign of blood loss s/p 2 Units PRBC transfused Hyperkalemia, resolved with fluid and insulin Hypernatremia Resolved hypokalemia, resolved Shock liver with elevated LFT and Coagulopathy - due to cardiac arrest and hypotension - cont to monitor Liver lesion ID Physician following Discontinued abx, not consistent with infection as noted above Hypermagnesemia - monitor levels as needed Hyperphosphatemia -cont to monitor, improved Stage 1 sacral ulcer, poa - upper ext blisters - pressure ulcer prevention strategies - wound care VTE Prophylaxis with Lovenox Poor prognosis DNR status Disposition: continue inpatient care, await placement in [place], [place] manager communication in contact with the family History Interval history: Patient is a 29 year old woman with a history of diabetes was brought to the e mergency room following a cardiac arrest. Her last well-known time was 10:30 in the morning, she was traveling with a friend, she was unresponsive in the back seat. EMS was called, CPR was started and continued here in the emergency room. Patient was intubated in the ER, noted hypotensive started on dobutamine, epinephrine and Levophed drip, given IV fluids, found to be in DKA with BG ~2200, several metabolic derangements - placed on insulin drip and admitted to ICU. BP improved and she was weaned off pressors. Pt off pressors and extubated. Transferred to floor awaiting placement Hospitalist Physical - Constitutional Vitals: Temp Pulse Resp BP Pulse Ox 97.8 F 129 H 17 114/81 95 04/25/19 05:54 04/25/19 10:25 04/25/19 05:54 04/25/19 10:25 04/25/19 09:48 General appearance: Present: other (intubated) Results - Labs CBC & Chem 7: 04/22/19 03:57 04/22/19 03:57 Labs: Laboratory Last Values WBC 11.5 K/mm3 (4.5-11.0) H 04/22/19 03:57 RBC 3.44 M/mm3 (3.65-5.03) L 04/22/19 03:57 Hgb 10.6 gm/dl (10.1-14.3) 04/22/19 03:57 Hct 32.9 % (30.3-42.9) 04/22/19 03:57 MCV 96 fl (79-97) 04/22/19 03:57 MCH 31 pg (28-32) 04/22/19 03:57 MCHC 32 % (30-34) 04/22/19 03:57 RDW 16.3 % (13.2-15.2) H 04/22/19 03:57 Plt Count 510 K/mm3 (140-440) H 04/22/19 03:57 Lymph % (Auto) 16.9 % (13.4-35.0) 04/03/19 03:40 [place] % (Auto) 9.8 % (0.0-7.3) H 04/03/19 03:40 Eos % (Auto) 3.2 % (0.0-4.3) 04/03/19 03:40 Baso % (Auto) 0.4 % (0.0-1.8) 04/03/19 03:40 Lymph # 1.1 K/mm3 (1.2-5.4) L 04/03/19 03:40 [place] # 0.6 K/mm3 (0.0-0.8) 04/03/19 03:40 Eos # 0.2 K/mm3 (0.0-0.4) 04/03/19 03:40 Baso # 0.0 K/mm3 (0.0-0.1) 04/03/19 03:40 Add Manual Diff Complete 04/01/19 05:01 Total Counted 100 04/01/19 05:01 Seg Neutrophils % 69.7 % (40.0-70.0) 04/03/19 03:40 Seg Neuts % (Manual) 71.0 % (40.0-70.0) H 04/01/19 05:01 Band Neutrophils % 0 % 04/01/19 05:01 Lymphocytes % (Manual) 20.0 % (13.4-35.0) 04/01/19 05:01 Reactive Lymphs % (Man) 0 % 04/01/19 05:01 Monocytes % (Manual) 7.0 % (0.0-7.3) 04/01/19 05:01 Eosinophils % (Manual) 2.0 % (0.0-4.3) 04/01/19 05:01 Basophils % (Manual) 0 % (0.0-1.8) 04/01/19 05:01 Metamyelocytes % 0 % 04/01/19 05:01 Myelocytes % 0 % 04/01/19 05:01 Promyelocytes % 0 % 04/01/19 05:01 Blast Cells % 0 % 04/01/19 05:01 Nucleated RBC % Not Reportable 04/01/19 05:01 Seg Neutrophils # 4.4 K/mm3 (1.8-7.7) 04/03/19 03:40 Seg Neutrophils # Man 4.8 K/mm3 (1.8-7.7) 04/01/19 05:01 Band Neutrophils # 0.0 K/mm3 04/01/19 05:01 Lymphocytes # (Manual) 1.4 K/mm3 (1.2-5.4) 04/01/19 05:01 Abs React Lymphs (Man) 0.0 K/mm3 04/01/19 05:01 Monocytes # (Manual) 0.5 K/mm3 (0.0-0.8) 04/01/19 05:01 Eosinophils # (Manual) 0.1 K/mm3 (0.0-0.4) 04/01/19 05:01 Basophils # (Manual) 0.0 K/mm3 (0.0-0.1) 04/01/19 05:01 Metamyelocytes # 0.0 K/mm3 04/01/19 05:01 Myelocytes # 0.0 K/mm3 04/01/19 05:01 Promyelocytes # 0.0 K/mm3 04/01/19 05:01 Blast Cells # 0.0 K/mm3 04/01/19 05:01 WBC Morphology Not Reportable 04/01/19 05:01 Hypersegmented Neuts Not Reportable 04/01/19 05:01 Hyposegmented Neuts Not Reportable 04/01/19 05:01 Hypogranular Neuts Not Reportable 04/01/19 05:01 Smudge Cells Not Reportable 04/01/19 05:01 Toxic Granulation Not Reportable 04/01/19 05:01 Toxic Vacuolation Not Reportable 04/01/19 05:01 Dohle Bodies Not Reportable 04/01/19 05:01 Pelger-Huet Anomaly Not Reportable 04/01/19 05:01 Wong Rods Not Reportable 04/01/19 05:01 Platelet Estimate Not Reportable 04/01/19 05:01 Clumped Platelets Not Reportable 04/01/19 05:01 Plt Clumps, EDTA Not Reportable 04/01/19 05:01 Large Platelets Not Reportable 04/01/19 05:01 Giant Platelets Not Reportable 04/01/19 05:01 Platelet Satelliting Not Reportable 04/01/19 05:01 Plt Morphology Comment Not Reportable 04/01/19 05:01 RBC Morphology Normal 04/01/19 05:01 Dimorphic RBCs Not Reportable 04/01/19 05:01 Polychromasia Not Reportable 04/01/19 05:01 Hypochromasia Not Reportable 04/01/19 05:01 Poikilocytosis Not Reportable 04/01/19 05:01 Anisocytosis Not Reportable 04/01/19 05:01 Microcytosis Not Reportable 04/01/19 05:01 Macrocytosis Not Reportable 04/01/19 05:01 Spherocytes Not Reportable 04/01/19 05:01 Pappenheimer Bodies Not Reportable 04/01/19 05:01 Sickle Cells Not Reportable 04/01/19 05:01 Target Cells Not Reportable 04/01/19 05:01 Tear Drop Cells Not Reportable 04/01/19 05:01 Ovalocytes Not Reportable 04/01/19 05:01 Helmet Cells Not Reportable 04/01/19 05:01 Muñoz-Alfarata Bodies Not Reportable 04/01/19 05:01 [place] Rings Not Reportable 04/01/19 05:01 [place] Cells Not Reportable 04/01/19 05:01 Bite Cells Not Reportable 04/01/19 05:01 Crenated Cell Not Reportable 04/01/19 05:01 Elliptocytes Not Reportable 04/01/19 05:01 Acanthocytes (Spur) Not Reportable 04/01/19 05:01 Rouleaux Not Reportable 04/01/19 05:01 Hemoglobin C Crystals Not Reportable 04/01/19 05:01 Schistocytes Not Reportable 04/01/19 05:01 Malaria parasites Not Reportable 04/01/19 05:01 Benja Bodies Not Reportable 04/01/19 05:01 Hem Pathologist Commnt No 04/01/19 05:01 PT 13.9 Sec. (12.2-14.9) 04/01/19 17:14 INR 1.10 (0.87-1.13) 04/01/19 17:14 APTT 74.5 Sec. (24.2-36.6) H* 03/29/19 19:20 Fibrinogen 313 mg/dl (211-480) 04/01/19 17:14 D-Dimer 4526.86 ng/mlDDU (0-234) H 04/06/19 00:06 Heparin Anti-Xa, Unfract Negative (Negative) 03/31/19 15:00 POC ABG pH 7.565 (7.35-7.45) H 04/19/19 04:35 ABG pH 7.396 pH Units (7.350-7.450) 04/03/19 05:35 POC ABG pCO2 36.2 (35-45) 04/19/19 04:35 ABG pCO2 32.2 mm Hg 04/03/19 05:35 POC ABG pO2 88 (80-105) 04/19/19 04:35 ABG pO2 97.7 mm Hg (80.0-90.0) H 04/03/19 05:35 POC ABG HCO3 32.8 (22-26 mml/L) 04/19/19 04:35 ABG HCO3 19.3 mmol/L (20.0-26.0) L 04/03/19 05:35 POC ABG Total CO2 34 (23-27mmol/L) 04/19/19 04:35 POC ABG O2 Sat 98 04/19/19 04:35 ABG O2 Saturation 97.6 % (95.0-99.0) 04/03/19 05:35 ABG O2 Content 10.9 (0.0-44) 04/03/19 05:35 POC ABG Base Excess 11 ((-2) - (+3)mmol/L) 04/19/19 04:35 ABG Base Excess -5.0 mmol/L (-2.0-3.0) L 04/03/19 05:35 ABG Hemoglobin 8.0 gm/dl (12.0-16.0) L 04/03/19 05:35 ABG Carboxyhemoglobin 2.1 % (0.0-5.0) 04/03/19 05:35 ABG Methemoglobin 0.5 % (0.0-1.5) 04/03/19 05:35 VBG pH 6.800 (7.320-7.420) L* 03/29/19 19:47 Oxyhemoglobin 95.1 % (95.0-99.0) 04/03/19 05:35 FiO2 40 % 04/19/19 04:35 Sodium 138 mmol/L (137-145) 04/22/19 03:57 Potassium 4.6 mmol/L (3.6-5.0) 04/22/19 03:57 Chloride 96.3 mmol/L (98-107) L 04/22/19 03:57 Carbon Dioxide 28 mmol/L (22-30) 04/22/19 03:57 Anion Gap 18 mmol/L 04/22/19 03:57 BUN 14 mg/dL (7-17) 04/22/19 03:57 Creatinine 0.2 mg/dL (0.7-1.2) L 04/22/19 03:57 Estimated GFR > 60 ml/min 04/22/19 03:57 BUN/Creatinine Ratio 70 % 04/22/19 03:57 Glucose 333 mg/dL (65-100) H 04/22/19 03:57 POC Glucose 127 (70-105) H 04/25/19 08:12 Lactic Acid 3.30 mmol/L (0.7-2.0) H* 03/31/19 07:50 Calcium 9.6 mg/dL (8.4-10.2) 04/22/19 03:57 Phosphorus 4.10 mg/dL (2.5-4.5) 04/09/19 16:25 Magnesium 1.70 mg/dL (1.7-2.3) 04/22/19 03:57 Iron 26 ug/dL (37-170) L 03/31/19 08:20 TIBC 193 mcg/dL (250-450) L 03/31/19 08:20 Total Bilirubin 0.20 mg/dL (0.1-1.2) 04/22/19 03:57 Direct Bilirubin 0.2 mg/dL (0-0.2) 04/02/19 07:48 Indirect Bilirubin 0.5 mg/dL 04/02/19 07:48 AST 60 units/L (5-40) H 04/22/19 03:57 ALT 31 units/L (7-56) 04/22/19 03:57 Alkaline Phosphatase 204 units/L (35-129) H 04/22/19 03:57 Total Creatine Kinase 2465 units/L (30-135) H 03/30/19 05:26 CK-MB (CK-2) 52.7 ng/mL (0.0-4.0) H 03/30/19 05:26 CK-MB (CK-2) Rel Index 2.1 (0-4) 03/30/19 05:26 Troponin T < 0.010 ng/mL (0.00-0.029) 04/06/19 05:20 C-Reactive Protein 2.40 mg/dL (0.00-1.30) H 03/30/19 12:57 Total Protein 7.6 g/dL (6.3-8.2) 04/22/19 03:57 Albumin 3.1 g/dL (3.9-5) L 04/22/19 03:57 Albumin/Globulin Ratio 0.7 % 04/22/19 03:57 Serotonin Release Assay See scanned result 03/31/19 15:00 Vitamin B12 > 2000 pg/mL (211-911) H 03/31/19 08:20 Folate > 20 ng/mL (7.3-26.0) 03/31/19 08:20 HCG, Qual Negative (Negative) 03/29/19 19:20 Urine Color Yellow (Yellow) 03/29/19 23:10 Urine Turbidity Slightly-cloudy (Clear) 03/29/19 23:10 Urine pH 6.0 (5.0-7.0) 03/29/19 23:10 Ur Specific [place] 1.021 (1.003-1.030) 03/29/19 23:10 Urine Protein 100 mg/dl mg/dL (Negative) 03/29/19 23:10 Urine Glucose (UA) >=500 mg/dL (Negative) 03/29/19 23:10 Urine Ketones 20 mg/dL (Negative) 03/29/19 23:10 Urine Blood Lg (Negative) 03/29/19 23:10 Urine Nitrite Neg (Negative) 03/29/19 23:10 Urine Bilirubin Neg (Negative) 03/29/19 23:10 Urine Urobilinogen < 2.0 mg/dL (<2.0) 03/29/19 23:10 Ur Leukocyte Esterase Neg (Negative) 03/29/19 23:10 Urine WBC (Auto) 1.0 /HPF (0.0-6.0) 03/29/19 23:10 Urine RBC (Auto) 1.0 /HPF (0.0-6.0) 03/29/19 23:10 Urine Mucus Few /HPF 03/29/19 23:10 Salicylates 0.8 mg/dL (2.8-20.0) L 03/30/19 Unknown Urine Opiates Screen Presumptive negative 03/29/19 23:10 Urine Methadone Screen Presumptive negative 03/29/19 23:10 Acetaminophen < 5.0 ug/mL (10.0-30.0) L 03/30/19 Unknown Ur Barbiturates Screen Presumptive negative 03/29/19 23:10 Ur Phencyclidine Scrn Presumptive negative 03/29/19 23:10 Ur Amphetamines Screen Presumptive negative 03/29/19 23:10 U Benzodiazepines Scrn Presumptive negative 03/29/19 23:10 Urine Cocaine Screen Presumptive negative 03/29/19 23:10 U Marijuana (THC) Screen Presumptive negative 03/29/19 23:10 Drugs of Abuse Note Disclamer 03/29/19 23:10 Heparin-induced Plt Ab Negative (Negative) 03/31/19 15:00 UF Heparin High Dose 0 % Release 03/31/19 15:00 FABIAN UFH Low Dose 0.1 0 % Release 03/31/19 15:00 FABIAN UFH Low Dose 0.5 0 % Release 03/31/19 15:00 Hepatitis A IgM Ab Non-reactive (NonReactive) 03/30/19 Unknown Hep Bs Antigen Non-reactive (Negative) 03/30/19 Unknown Hep B Core IgM Ab Non-reactive (NonReactive) 03/30/19 Unknown Hepatitis C Antibody Non-reactive (NonReactive) 03/30/19 Unknown Miscellaneous Test Flexitest 1 H 03/30/19 14:00 Blood Type O POSITIVE 03/30/19 03:30 Antibody Screen Negative 03/30/19 03:30 Crossmatch See Detail 03/30/19 03:30 Active Medications - Current Medications Current Medications: Generic Name Dose Route Start Last Admin Trade Name Freq PRN Reason Stop Dose Admin Acetaminophen 650 mg 03/29/19 23:34 04/21/19 21:02 Tylenol PO 650 mg Q4H PRN Administration Pain MILD(1-3)/Fever >100.5/WARE Lipase/Protease/Amylase 1 each 04/02/19 11:44 Pancreaze 10,500 Unit FEEDTUBE PRN PRN For Clogged Feeding Tube Dextrose 50 ml 04/21/19 12:03 D50w (25gm) Syringe IV PRN PRN Hypoglycemia Enoxaparin Sodium 40 mg 04/14/19 10:00 04/25/19 10:03 Lovenox SUB-Q 40 mg QDAY@1000 ZAMZAM Administration Famotidine 20 mg 04/02/19 10:00 04/25/19 10:03 Pepcid PO 20 mg BID ZAMZAM Administration Fentanyl 25 mcg 04/14/19 14:00 04/23/19 15:23 Duragesic TD 25 mcg Q3D ZAMZAM Administration Glycopyrrolate 1 mg 04/22/19 20:00 04/25/19 10:03 Robinul FEEDTUBE 1 mg TID ZAMZAM Administration Hydrophilic Ointment 1 applic 03/30/19 11:24 04/22/19 08:37 Vaseline Lip Therapy TP 1 applic Q2HR PRN Administration Dry Lips Insulin Glargine 20 units 04/09/19 22:00 04/24/19 22:58 Lantus SUB-Q 20 units QHS ZAMZAM Administration Insulin Human Lispro 0 unit 04/21/19 13:00 04/25/19 06:01 Humalog SUB-Q 4 unit Q6HR ZAMZAM Administration Protocol Levetiracetam 500 mg 04/03/19 10:00 04/25/19 10:03 Keppra PO 500 mg BID ZAMZAM Administration Metoprolol Tartrate 5 mg 04/14/19 13:06 04/22/19 08:29 Lopressor IV 5 mg Q6HR PRN Administration Tachyarrhythmias Metoprolol Tartrate 25 mg 04/16/19 10:00 04/25/19 10:25 Lopressor PO 25 mg BID ZAMZAM Administration Multi-Ingred Cream/Lotion/Oil/Oint 1 applic 03/30/19 11:24 04/06/19 11:39 Artificial Tears Ophth Oint OU 1 applic Q4HR PRN Administration Dry Eye(s) Ondansetron HCl 4 mg 03/29/19 23:34 Zofran IV Q8H PRN Nausea And Vomiting Scopolamine 1 each 04/17/19 12:00 04/23/19 11:49 Transderm-Scop TD 1 each Q3D ZAMZAM Administration Simple Syrup 15 ml 04/02/19 11:44 04/24/19 06:02 Simple Syrup FEEDTUBE 15 ml PRN PRN Administration Hypoglycemia Simple Syrup 30 ml 04/02/19 11:44 Simple Syrup FEEDTUBE PRN PRN Hypoglycemia Sodium Bicarbonate 325 mg 04/02/19 11:44 Sodium Bicarbonate FEEDTUBE PRN PRN For Clogged Feeding Tube Sodium Chloride 10 ml 03/30/19 10:00 04/25/19 10:03 Sodium Chloride Flush Syringe 10 Ml IV 10 ml BID ZAMZAM Administration Sodium Chloride 10 ml 03/29/19 23:34 04/22/19 08:29 Sodium Chloride Flush Syringe 10 Ml IV 10 ml PRN PRN Administration LINE FLUSH Nutrition/Malnutrition Assess - Dietary Evaluation Nutrition/Malnutrition Findings: Nutrition Notes Start: 03/30/19 13:14 Freq: Status: Active Protocol: Document 04/25/19 09:43 RS (Rec: 04/25/19 10:30 RS [id number]) Co-Sign 04/25/19 09:43 NHALL Nutrition Notes Initial or Follow up Reassessment Current Diagnosis Acute Kidney Injury,Diabetes, Sepsis,Respiratory Failure Other Pertinent Diagnosis s/p trach & PEG, s/p cardiac arrest, DKA, ARF, Shock liver Current Diet Glucerna 1.2 at 50 ml/hr Labs/Tests POC glu 127 Pertinent Medications Reviewed Height 5 ft Weight 40.1 kg [place] Body Weight (kg) 45.45 BMI 17.2 Subjective/Other Information Glucerna running at 50 ml/hr via PEG. Tech reports pt is tolerating TF. Percent of energy/protein needs met: 100%/100% Burn Absent Trauma Absent #1 Nutrition Diagnosis Inadequate oral intake Diagnosis Progress(for reassessment Continues documentation) Is patient on ventilator? Yes Is Patient Ambulatory and/or Out of Bed No REE-([facility]-confined to bed) 1247.496 Kcal/Kg value to use for calculation 35 Approximate Energy Requirements Using 1404 kcal/Kg Calculation Used for Recommendations [facility] Additional Notes Protein: 1.2-1.5g/k-60g/ day Fluids: 1ml/kcal Nutrition Intervention Change Diet Order: Continue TF Nutrition Support: Glucerna 1.2 at 50ml/hr with 80ml water flush q4h. Kcal 1,440 Protein (gm) 72 Fluid (mL) 966 Goal #1 Meet at least 75% of energy and protein needs Follow-Up By: 05/02/19 Additional Comments F/U for stable TF rate and wt
--- NOTE | 2019-04-25 13:44 | Procedure Note ---
Date of procedure: 04/25/19 Pre-op diagnosis: respiratory failure Post-op diagnosis: same Procedure: Trach change Discussed status with Dr. Sanderson. She requested that we change out the trach to a cuffless trach. Patient was in stable condition. She was connected only to a T piece. Breathing was nonlabored. With the assistance of the nurse, patient was positioned for trach change out. Sutures were cut. Ties were released. Balloon was deflated and old trach was easily removed. New, Shiley 6 cuffless trach, was easily inserted. She had good air movement through the trach. She had good breath sounds bilaterally. T piece was reconnected. Trach ties were reconnected. Patient tolerated the procedure well. There were no complications. Patient was left in stable condition on the elizondo. Findings: patent, wide tracheotomy Implants: 6 Shiley cuffless trach Anesthesia: none Surgeon: KAVITA GAFFNEY Estimated blood loss: none Pathology: none Condition: stable Disposition: floor
--- NOTE | 2019-04-25 17:23 | Progress Note ---
Assessment and Plan Patient resting on T tube. Patient sleeping at this time. No acute respiratory distress.. Patient is on T tube, FIO2 35%. O2 saturation 98%.Patient afebrile.; and has mild leukocytosis. - Patient Problems (1) Cardiac arrest Current Visit: Yes Status: Acute Plan to address problem: Patient resucitated. Presently sleeping on T tube. No acute respiratory distress.; (2) Status post tracheostomy Current Visit: Yes Status: Acute Plan to address problem: Respiratory suctioning. Recommend trach care as per respiratory therapy protocol. (3) DKA, type 1 Current Visit: Yes Status: Acute Qualifiers: Diabetes mellitus complication detail: with coma Qualified Code(s): E10.11 - Type 1 diabetes mellitus with ketoacidosis with coma Plan to address problem: Management as per primary care. (4) Hypotension Current Visit: Yes Status: Acute Qualifiers: Hypotension type: unspecified hypotension type Qualified Code(s): I95.9 - Hypotension, unspecified Plan to address problem: Improved. Recent blood pressure 114/81. (5) Renal failure Current Visit: Yes Status: Acute Qualifiers: Renal failure chronicity: acute Acute renal failure type: unspecified Qualified Code(s): N17.9 - Acute kidney failure, unspecified Plan to address problem: Improved. Management as per primary care and nephrology . Subjective Date of service: 04/25/19 Principal diagnosis: Ac Hypoxemic Resp Failure; DKA; Severe sepsis with shock; ANGELICA Interval history: Patient resting on T tube. Patient sleeping at this time. No acute respiratory distress.. Patient is on T tube, FIO2 35%. O2 saturation 98%.Patient afebrile.; and has mild leukocytosis. Objective Vital Signs - 12hr 04/25/19 04/25/19 04/25/19 05:54 09:48 10:25 Temperature 97.8 F Pulse Rate 125 H 129 H Respiratory 17 Rate Blood Pressure 124/87 114/81 O2 Sat by Pulse 97 95 Oximetry O2 Sat by Pulse 95 Oximetry [ Assessment] 04/25/19 04/25/19 04/25/19 10:26 10:40 13:34 Temperature 97.8 F Pulse Rate 128 H 117 H Respiratory 22 Rate Blood Pressure 114/81 O2 Sat by Pulse 91 Oximetry O2 Sat by Pulse 98 Oximetry [ Assessment] Constitutional: no acute distress, asleep, other (young CF normocephalic and atraumatic s/p tracheostomy to ATP, copious secretions) Eyes: non-icteric ENT: oropharynx moist, other Neck: supple, no lymphadenopathy, no JVD Effort: mildly labored Ascultation: Bilateral: diminished breath sounds, rhonchi Percussion: Bilateral: not dull Cardiovascular: regular rate and rhythm Gastrointestinal: normoactive bowel sounds, soft, non-tender, non-distended, other (PEG tube) Integumentary: erythema (noted on upper extremity) Extremities: no cyanosis, no edema, pink and warm, pulses normal, no ischemia or petechiae Neurologic: unable to assess (awake, alert, not obeying commands) Psychiatric: other (unable to assess) CBC and BMP: 04/22/19 03:57 04/22/19 03:57 ABG, PT/INR, D-dimer: ABG POC ABG pH 7.565 (7.35-7.45) H 04/19/19 04:35 ABG pH 7.396 pH Units (7.350-7.450) 04/03/19 05:35 POC ABG pCO2 36.2 (35-45) 04/19/19 04:35 ABG pCO2 32.2 mm Hg 04/03/19 05:35 POC ABG pO2 88 (80-105) 04/19/19 04:35 ABG pO2 97.7 mm Hg (80.0-90.0) H 04/03/19 05:35 POC ABG HCO3 32.8 (22-26 mml/L) 04/19/19 04:35 POC ABG Total CO2 34 (23-27mmol/L) 04/19/19 04:35 POC ABG O2 Sat 98 04/19/19 04:35 ABG O2 Saturation 97.6 % (95.0-99.0) 04/03/19 05:35 PT/INR, D-dimer PT 13.9 Sec. (12.2-14.9) 04/01/19 17:14 INR 1.10 (0.87-1.13) 04/01/19 17:14 D-Dimer 4526.86 ng/mlDDU (0-234) H 04/06/19 00:06 Abnormal lab findings: Abnormal Labs 0903/29/19 03/29/19 19:11 19:20 19:20 WBC 26.7 H RBC 2.52 L Hgb 8.1 L Hct MCV 148 H MCH MCHC 22 L RDW 18.5 H Plt Count [place] % (Auto) Lymph # Seg Neuts % (Manual) 82.0 H Lymphocytes % (Manual) 7.0 L Nucleated RBC % Seg Neutrophils # Man 21.9 H Lymphocytes # (Manual) Monocytes # (Manual) 1.9 H PT 21.8 H INR 1.95 H APTT 74.5 H* D-Dimer POC ABG pH ABG pH POC ABG pCO2 POC ABG pO2 ABG pO2 ABG HCO3 ABG O2 Saturation ABG Base Excess ABG Hemoglobin VBG pH Oxyhemoglobin Sodium Potassium Chloride Carbon Dioxide BUN Creatinine Glucose POC Glucose > 500 H Lactic Acid Calcium Phosphorus Magnesium Iron TIBC Direct Bilirubin AST ALT Alkaline Phosphatase Total Creatine Kinase CK-MB (CK-2) C-Reactive Protein Total Protein Albumin Vitamin B12 Salicylates Acetaminophen Miscellaneous Test Crossmatch 03/29/19 03/29/19 03/29/19 19:20 19:47 20:59 WBC RBC Hgb Hct MCV MCH MCHC RDW Plt Count [place] % (Auto) Lymph # Seg Neuts % (Manual) Lymphocytes % (Manual) Nucleated RBC % Seg Neutrophils # Man Lymphocytes # (Manual) Monocytes # (Manual) PT INR APTT D-Dimer POC ABG pH 6.892 L ABG pH POC ABG pCO2 POC ABG pO2 236 H ABG pO2 ABG HCO3 ABG O2 Saturation ABG Base Excess ABG Hemoglobin VBG pH 6.800 L* Oxyhemoglobin Sodium 118 L* Potassium 9.0 H* Chloride 64.5 L Carbon Dioxide 7 L* BUN 53 H Creatinine 2.1 H Glucose 2196 H* POC Glucose Lactic Acid Calcium 12.4 H* Phosphorus Magnesium Iron TIBC Direct Bilirubin AST 3900 H ALT 1034 H Alkaline Phosphatase 316 H Total Creatine Kinase CK-MB (CK-2) C-Reactive Protein Total Protein 5.1 L Albumin 2.8 L Vitamin B12 Salicylates Acetaminophen Miscellaneous Test Crossmatch 03/29/19 03/29/19 03/29/19 22:45 22:45 22:45 WBC RBC Hgb Hct MCV MCH MCHC RDW Plt Count [place] % (Auto) Lymph # Seg Neuts % (Manual) Lymphocytes % (Manual) Nucleated RBC % Seg Neutrophils # Man Lymphocytes # (Manual) Monocytes # (Manual) PT INR APTT D-Dimer POC ABG pH ABG pH POC ABG pCO2 POC ABG pO2 ABG pO2 ABG HCO3 ABG O2 Saturation ABG Base Excess ABG Hemoglobin VBG pH Oxyhemoglobin Sodium 132 L D Potassium 7.0 H* Chloride 84.3 L Carbon Dioxide 3 L* BUN 48 H Creatinine 1.8 H Glucose 1779 H* POC Glucose Lactic Acid Calcium Phosphorus 21.70 H Magnesium 4.70 H Iron TIBC Direct Bilirubin AST ALT Alkaline Phosphatase Total Creatine Kinase 363 H CK-MB (CK-2) C-Reactive Protein Total Protein Albumin Vitamin B12 Salicylates Acetaminophen Miscellaneous Test Crossmatch 03/29/19 03/29/19 03/30/19 Unknown Unknown 00:11 WBC RBC Hgb Hct MCV MCH MCHC RDW Plt Count [place] % (Auto) Lymph # Seg Neuts % (Manual) Lymphocytes % (Manual) Nucleated RBC % Seg Neutrophils # Man Lymphocytes # (Manual) Monocytes # (Manual) PT INR APTT D-Dimer POC ABG pH ABG pH POC ABG pCO2 POC ABG pO2 ABG pO2 ABG HCO3 ABG O2 Saturation ABG Base Excess ABG Hemoglobin VBG pH Oxyhemoglobin Sodium 122 L Potassium 7.9 H* 6.4 H* Chloride 75.3 L 89.7 L Carbon Dioxide 3 L* 12 L D BUN 52 H 46 H Creatinine 2.0 H 1.7 H Glucose 2043 H* 1591 H* POC Glucose Lactic Acid Calcium 7.8 L Phosphorus 19.30 H Magnesium 3.90 H Iron TIBC Direct Bilirubin AST ALT Alkaline Phosphatase Total Creatine Kinase CK-MB (CK-2) C-Reactive Protein Total Protein Albumin Vitamin B12 Salicylates Acetaminophen Miscellaneous Test Crossmatch 03/30/19 03/30/19 03/30/19 00:11 02:14 02:14 WBC RBC Hgb Hct MCV MCH MCHC RDW Plt Count [place] % (Auto) Lymph # Seg Neuts % (Manual) Lymphocytes % (Manual) Nucleated RBC % Seg Neutrophils # Man Lymphocytes # (Manual) Monocytes # (Manual) PT INR APTT D-Dimer POC ABG pH ABG pH POC ABG pCO2 POC ABG pO2 ABG pO2 ABG HCO3 ABG O2 Saturation ABG Base Excess ABG Hemoglobin VBG pH Oxyhemoglobin Sodium Potassium Chloride Carbon Dioxide 9 L* BUN 45 H Creatinine 1.7 H Glucose 1155 H* POC Glucose Lactic Acid Calcium 7.9 L Phosphorus 10.90 H D 5.30 H D Magnesium 3.10 H 2.90 H Iron TIBC Direct Bilirubin AST ALT Alkaline Phosphatase Total Creatine Kinase CK-MB (CK-2) C-Reactive Protein Total Protein Albumin Vitamin B12 Salicylates Acetaminophen Miscellaneous Test Crossmatch 03/30/19 03/30/19 03/30/19 03:15 03:30 04:23 WBC 18.0 H RBC 2.31 L Hgb 7.3 L Hct 23.8 L D MCV 103 H MCH MCHC RDW 17.1 H Plt Count [place] % (Auto) Lymph # Seg Neuts % (Manual) 79.0 H Lymphocytes % (Manual) Nucleated RBC % Seg Neutrophils # Man 14.2 H Lymphocytes # (Manual) Monocytes # (Manual) PT INR APTT D-Dimer POC ABG pH 7.251 L ABG pH POC ABG pCO2 POC ABG pO2 156 H ABG pO2 ABG HCO3 ABG O2 Saturation ABG Base Excess ABG Hemoglobin VBG pH Oxyhemoglobin Sodium Potassium Chloride Carbon Dioxide BUN Creatinine Glucose POC Glucose Lactic Acid Calcium Phosphorus Magnesium Iron TIBC Direct Bilirubin AST ALT Alkaline Phosphatase Total Creatine Kinase CK-MB (CK-2) C-Reactive Protein Total Protein Albumin Vitamin B12 Salicylates Acetaminophen Miscellaneous Test Crossmatch See Detail 03/30/19 03/30/19 03/30/19 05:26 05:26 10:38 WBC RBC Hgb Hct MCV MCH MCHC RDW Plt Count [place] % (Auto) Lymph # Seg Neuts % (Manual) Lymphocytes % (Manual) Nucleated RBC % Seg Neutrophils # Man Lymphocytes # (Manual) Monocytes # (Manual) PT INR APTT D-Dimer POC ABG pH ABG pH POC ABG pCO2 POC ABG pO2 ABG pO2 ABG HCO3 ABG O2 Saturation ABG Base Excess ABG Hemoglobin VBG pH Oxyhemoglobin Sodium 158 H D Potassium 3.5 L Chloride 109.3 H Carbon Dioxide 19 L D BUN 40 H Creatinine 1.5 H Glucose 760 H* POC Glucose 380 H Lactic Acid Calcium 7.3 L Phosphorus Magnesium 2.60 H Iron TIBC Direct Bilirubin AST 20212 H ALT 2156 H Alkaline Phosphatase 271 H Total Creatine Kinase 2465 H CK-MB (CK-2) 52.7 H C-Reactive Protein Total Protein 4.5 L Albumin 2.4 L Vitamin B12 Salicylates Acetaminophen Miscellaneous Test Crossmatch 03/30/19 03/30/19 03/30/19 11:08 12:25 12:57 WBC RBC Hgb Hct MCV MCH MCHC RDW Plt Count [place] % (Auto) Lymph # Seg Neuts % (Manual) Lymphocytes % (Manual) Nucleated RBC % Seg Neutrophils # Man Lymphocytes # (Manual) Monocytes # (Manual) PT INR APTT D-Dimer POC ABG pH ABG pH POC ABG pCO2 POC ABG pO2 ABG pO2 ABG HCO3 ABG O2 Saturation ABG Base Excess ABG Hemoglobin VBG pH Oxyhemoglobin Sodium 156 H Potassium 3.2 L Chloride 116.4 H Carbon Dioxide 21 L BUN 37 H Creatinine Glucose 162 H POC Glucose 263 H 196 H Lactic Acid Calcium 7.2 L Phosphorus Magnesium Iron TIBC Direct Bilirubin AST ALT Alkaline Phosphatase Total Creatine Kinase CK-MB (CK-2) C-Reactive Protein Total Protein Albumin Vitamin B12 Salicylates Acetaminophen Miscellaneous Test Crossmatch 03/30/19 03/30/19 03/30/19 12:57 12:57 12:57 WBC RBC Hgb Hct MCV MCH MCHC RDW Plt Count [place] % (Auto) Lymph # Seg Neuts % (Manual) Lymphocytes % (Manual) Nucleated RBC % Seg Neutrophils # Man Lymphocytes # (Manual) Monocytes # (Manual) PT 21.0 H INR 1.86 H APTT D-Dimer POC ABG pH ABG pH POC ABG pCO2 POC ABG pO2 ABG pO2 ABG HCO3 ABG O2 Saturation ABG Base Excess ABG Hemoglobin VBG pH Oxyhemoglobin Sodium Potassium Chloride Carbon Dioxide BUN Creatinine Glucose POC Glucose Lactic Acid 9.00 H* Calcium Phosphorus Magnesium Iron TIBC Direct Bilirubin AST ALT Alkaline Phosphatase Total Creatine Kinase CK-MB (CK-2) C-Reactive Protein 2.40 H Total Protein Albumin Vitamin B12 Salicylates Acetaminophen Miscellaneous Test Crossmatch 03/30/19 03/30/19 03/30/19 13:23 14:00 14:47 WBC RBC Hgb Hct MCV MCH MCHC RDW Plt Count [place] % (Auto) Lymph # Seg Neuts % (Manual) Lymphocytes % (Manual) Nucleated RBC % Seg Neutrophils # Man Lymphocytes # (Manual) Monocytes # (Manual) PT INR APTT D-Dimer POC ABG pH ABG pH POC ABG pCO2 POC ABG pO2 ABG pO2 ABG HCO3 ABG O2 Saturation ABG Base Excess ABG Hemoglobin VBG pH Oxyhemoglobin Sodium Potassium Chloride Carbon Dioxide BUN Creatinine Glucose POC Glucose 176 H 245 H Lactic Acid Calcium Phosphorus Magnesium Iron TIBC Direct Bilirubin AST ALT Alkaline Phosphatase Total Creatine Kinase CK-MB (CK-2) C-Reactive Protein Total Protein Albumin Vitamin B12 Salicylates Acetaminophen Miscellaneous Test Flexitest 1 H Crossmatch 03/30/19 03/30/19 03/30/19 16:11 17:11 17:46 WBC RBC Hgb Hct MCV MCH MCHC RDW Plt Count [place] % (Auto) Lymph # Seg Neuts % (Manual) Lymphocytes % (Manual) Nucleated RBC % Seg Neutrophils # Man Lymphocytes # (Manual) Monocytes # (Manual) PT INR APTT D-Dimer POC ABG pH ABG pH POC ABG pCO2 POC ABG pO2 ABG pO2 ABG HCO3 ABG O2 Saturation ABG Base Excess ABG Hemoglobin VBG pH Oxyhemoglobin Sodium Potassium Chloride Carbon Dioxide BUN Creatinine Glucose POC Glucose 181 H 167 H 125 H Lactic Acid Calcium Phosphorus Magnesium Iron TIBC Direct Bilirubin AST ALT Alkaline Phosphatase Total Creatine Kinase CK-MB (CK-2) C-Reactive Protein Total Protein Albumin Vitamin B12 Salicylates Acetaminophen Miscellaneous Test Crossmatch 03/30/19 03/30/19 03/30/19 18:59 21:31 22:19 WBC RBC Hgb Hct MCV MCH MCHC RDW Plt Count [place] % (Auto) Lymph # Seg Neuts % (Manual) Lymphocytes % (Manual) Nucleated RBC % Seg Neutrophils # Man Lymphocytes # (Manual) Monocytes # (Manual) PT INR APTT D-Dimer POC ABG pH ABG pH POC ABG pCO2 POC ABG pO2 ABG pO2 ABG HCO3 ABG O2 Saturation ABG Base Excess ABG Hemoglobin VBG pH Oxyhemoglobin Sodium Potassium Chloride Carbon Dioxide BUN Creatinine Glucose POC Glucose 140 H 166 H 115 H Lactic Acid Calcium Phosphorus Magnesium Iron TIBC Direct Bilirubin AST ALT Alkaline Phosphatase Total Creatine Kinase CK-MB (CK-2) C-Reactive Protein Total Protein Albumin Vitamin B12 Salicylates Acetaminophen Miscellaneous Test Crossmatch 03/30/19 03/30/19 03/30/19 23:13 Unknown Unknown WBC RBC Hgb Hct MCV MCH MCHC RDW Plt Count [place] % (Auto) Lymph # Seg Neuts % (Manual) Lymphocytes % (Manual) Nucleated RBC % Seg Neutrophils # Man Lymphocytes # (Manual) Monocytes # (Manual) PT INR APTT D-Dimer POC ABG pH ABG pH POC ABG pCO2 POC ABG pO2 ABG pO2 47.8 L ABG HCO3 18.8 L ABG O2 Saturation 83.8 L ABG Base Excess -5.4 L ABG Hemoglobin 6.8 L VBG pH Oxyhemoglobin 81.8 L Sodium 157 H Potassium 3.3 L Chloride 117.9 H Carbon Dioxide 20 L BUN 36 H Creatinine Glucose 150 H POC Glucose 112 H Lactic Acid Calcium 7.2 L Phosphorus Magnesium Iron TIBC Direct Bilirubin AST ALT Alkaline Phosphatase Total Creatine Kinase CK-MB (CK-2) C-Reactive Protein Total Protein Albumin Vitamin B12 Salicylates Acetaminophen Miscellaneous Test Crossmatch 03/30/19 03/30/19 03/31/19 Unknown Unknown 00:03 WBC RBC Hgb Hct MCV MCH MCHC RDW Plt Count [place] % (Auto) Lymph # Seg Neuts % (Manual) Lymphocytes % (Manual) Nucleated RBC % Seg Neutrophils # Man Lymphocytes # (Manual) Monocytes # (Manual) PT INR APTT D-Dimer POC ABG pH ABG pH POC ABG pCO2 POC ABG pO2 ABG pO2 ABG HCO3 ABG O2 Saturation ABG Base Excess ABG Hemoglobin VBG pH Oxyhemoglobin Sodium Potassium Chloride Carbon Dioxide BUN Creatinine Glucose POC Glucose 188 H Lactic Acid Calcium Phosphorus Magnesium Iron TIBC Direct Bilirubin AST ALT Alkaline Phosphatase Total Creatine Kinase CK-MB (CK-2) C-Reactive Protein Total Protein Albumin Vitamin B12 Salicylates 0.8 L Acetaminophen < 5.0 L Miscellaneous Test Crossmatch 03/31/19 03/31/19 03/31/19 01:18 03:07 03:50 WBC RBC Hgb Hct MCV MCH MCHC RDW Plt Count [place] % (Auto) Lymph # Seg Neuts % (Manual) Lymphocytes % (Manual) Nucleated RBC % Seg Neutrophils # Man Lymphocytes # (Manual) Monocytes # (Manual) PT INR APTT D-Dimer POC ABG pH ABG pH 7.525 H POC ABG pCO2 POC ABG pO2 ABG pO2 178.0 H ABG HCO3 19.5 L ABG O2 Saturation 99.2 H ABG Base Excess -3.1 L ABG Hemoglobin 5.8 L VBG pH Oxyhemoglobin Sodium Potassium Chloride Carbon Dioxide BUN Creatinine Glucose POC Glucose 114 H 107 H Lactic Acid Calcium Phosphorus Magnesium Iron TIBC Direct Bilirubin AST ALT Alkaline Phosphatase Total Creatine Kinase CK-MB (CK-2) C-Reactive Protein Total Protein Albumin Vitamin B12 Salicylates Acetaminophen Miscellaneous Test Crossmatch 03/31/19 03/31/19 03/31/19 03:51 03:51 04:05 WBC RBC 1.89 L Hgb 6.1 L Hct 18.2 L* MCV MCH MCHC RDW 17.7 H Plt Count 89 L [place] % (Auto) Lymph # Seg Neuts % (Manual) 86.0 H Lymphocytes % (Manual) 10.0 L Nucleated RBC % 1.0 H Seg Neutrophils # Man Lymphocytes # (Manual) 0.7 L Monocytes # (Manual) PT INR APTT D-Dimer POC ABG pH ABG pH POC ABG pCO2 POC ABG pO2 ABG pO2 ABG HCO3 ABG O2 Saturation ABG Base Excess ABG Hemoglobin VBG pH Oxyhemoglobin Sodium 151 H Potassium 3.2 L Chloride 119.4 H Carbon Dioxide 17 L BUN 35 H Creatinine Glucose 139 H POC Glucose 153 H Lactic Acid Calcium 7.1 L Phosphorus Magnesium Iron TIBC Direct Bilirubin AST ALT Alkaline Phosphatase Total Creatine Kinase CK-MB (CK-2) C-Reactive Protein Total Protein Albumin Vitamin B12 Salicylates Acetaminophen Miscellaneous Test Crossmatch 03/31/19 03/31/19 03/31/19 05:05 05:35 06:23 WBC RBC Hgb Hct MCV MCH MCHC RDW Plt Count [place] % (Auto) Lymph # Seg Neuts % (Manual) Lymphocytes % (Manual) Nucleated RBC % Seg Neutrophils # Man Lymphocytes # (Manual) Monocytes # (Manual) PT INR APTT D-Dimer POC ABG pH ABG pH POC ABG pCO2 POC ABG pO2 ABG pO2 ABG HCO3 ABG O2 Saturation ABG Base Excess ABG Hemoglobin VBG pH Oxyhemoglobin Sodium Potassium Chloride Carbon Dioxide BUN Creatinine Glucose POC Glucose 176 H 133 H Lactic Acid 3.20 H* Calcium Phosphorus Magnesium Iron TIBC Direct Bilirubin AST ALT Alkaline Phosphatase Total Creatine Kinase CK-MB (CK-2) C-Reactive Protein Total Protein Albumin Vitamin B12 Salicylates Acetaminophen Miscellaneous Test Crossmatch 03/31/19 03/31/19 03/31/19 07:50 07:51 08:20 WBC RBC Hgb Hct MCV MCH MCHC RDW Plt Count [place] % (Auto) Lymph # Seg Neuts % (Manual) Lymphocytes % (Manual) Nucleated RBC % Seg Neutrophils # Man Lymphocytes # (Manual) Monocytes # (Manual) PT INR APTT D-Dimer POC ABG pH ABG pH POC ABG pCO2 POC ABG pO2 ABG pO2 ABG HCO3 ABG O2 Saturation ABG Base Excess ABG Hemoglobin VBG pH Oxyhemoglobin Sodium Potassium Chloride Carbon Dioxide BUN Creatinine Glucose POC Glucose 135 H Lactic Acid 3.30 H* Calcium Phosphorus Magnesium Iron 26 L TIBC 193 L Direct Bilirubin AST ALT Alkaline Phosphatase Total Creatine Kinase CK-MB (CK-2) C-Reactive Protein Total Protein Albumin Vitamin B12 Salicylates Acetaminophen Miscellaneous Test Crossmatch 03/31/19 03/31/19 03/31/19 08:20 08:20 09:06 WBC RBC Hgb Hct MCV MCH MCHC RDW Plt Count [place] % (Auto) Lymph # Seg Neuts % (Manual) Lymphocytes % (Manual) Nucleated RBC % Seg Neutrophils # Man Lymphocytes # (Manual) Monocytes # (Manual) PT INR APTT D-Dimer POC ABG pH ABG pH POC ABG pCO2 POC ABG pO2 ABG pO2 ABG HCO3 ABG O2 Saturation ABG Base Excess ABG Hemoglobin VBG pH Oxyhemoglobin Sodium 153 H Potassium 3.0 L Chloride 118.9 H Carbon Dioxide 18 L BUN 37 H Creatinine Glucose 132 H POC Glucose 145 H Lactic Acid Calcium 7.1 L Phosphorus Magnesium Iron TIBC Direct Bilirubin AST ALT Alkaline Phosphatase Total Creatine Kinase CK-MB (CK-2) C-Reactive Protein Total Protein Albumin Vitamin B12 > 2000 H Salicylates Acetaminophen Miscellaneous Test Crossmatch 03/31/19 03/31/19 03/31/19 10:47 11:49 13:04 WBC RBC Hgb Hct MCV MCH MCHC RDW Plt Count [place] % (Auto) Lymph # Seg Neuts % (Manual) Lymphocytes % (Manual) Nucleated RBC % Seg Neutrophils # Man Lymphocytes # (Manual) Monocytes # (Manual) PT INR APTT D-Dimer POC ABG pH ABG pH POC ABG pCO2 POC ABG pO2 ABG pO2 ABG HCO3 ABG O2 Saturation ABG Base Excess ABG Hemoglobin VBG pH Oxyhemoglobin Sodium Potassium Chloride Carbon Dioxide BUN Creatinine Glucose POC Glucose 153 H 174 H 214 H Lactic Acid Calcium Phosphorus Magnesium Iron TIBC Direct Bilirubin AST ALT Alkaline Phosphatase Total Creatine Kinase CK-MB (CK-2) C-Reactive Protein Total Protein Albumin Vitamin B12 Salicylates Acetaminophen Miscellaneous Test Crossmatch 03/31/19 03/31/19 03/31/19 13:42 15:08 16:08 WBC RBC Hgb Hct MCV MCH MCHC RDW Plt Count [place] % (Auto) Lymph # Seg Neuts % (Manual) Lymphocytes % (Manual) Nucleated RBC % Seg Neutrophils # Man Lymphocytes # (Manual) Monocytes # (Manual) PT INR APTT D-Dimer POC ABG pH ABG pH POC ABG pCO2 POC ABG pO2 ABG pO2 ABG HCO3 ABG O2 Saturation ABG Base Excess ABG Hemoglobin VBG pH Oxyhemoglobin Sodium Potassium Chloride Carbon Dioxide BUN Creatinine Glucose POC Glucose 186 H 136 H 150 H Lactic Acid Calcium Phosphorus Magnesium Iron TIBC Direct Bilirubin AST ALT Alkaline Phosphatase Total Creatine Kinase CK-MB (CK-2) C-Reactive Protein Total Protein Albumin Vitamin B12 Salicylates Acetaminophen Miscellaneous Test Crossmatch 03/31/19 03/31/19 03/31/19 17:11 17:30 17:30 WBC RBC Hgb 7.7 L Hct 23.0 L MCV MCH MCHC RDW Plt Count [place] % (Auto) Lymph # Seg Neuts % (Manual) Lymphocytes % (Manual) Nucleated RBC % Seg Neutrophils # Man Lymphocytes # (Manual) Monocytes # (Manual) PT INR APTT D-Dimer POC ABG pH ABG pH POC ABG pCO2 POC ABG pO2 ABG pO2 ABG HCO3 ABG O2 Saturation ABG Base Excess ABG Hemoglobin VBG pH Oxyhemoglobin Sodium 153 H Potassium 3.5 L Chloride 119.3 H Carbon Dioxide 20 L BUN 34 H Creatinine Glucose 162 H POC Glucose 140 H Lactic Acid Calcium 7.6 L Phosphorus Magnesium Iron TIBC Direct Bilirubin AST ALT Alkaline Phosphatase Total Creatine Kinase CK-MB (CK-2) C-Reactive Protein Total Protein Albumin Vitamin B12 Salicylates Acetaminophen Miscellaneous Test Crossmatch 03/31/19 03/31/19 03/31/19 17:59 18:58 20:28 WBC RBC Hgb Hct MCV MCH MCHC RDW Plt Count [place] % (Auto) Lymph # Seg Neuts % (Manual) Lymphocytes % (Manual) Nucleated RBC % Seg Neutrophils # Man Lymphocytes # (Manual) Monocytes # (Manual) PT INR APTT D-Dimer POC ABG pH ABG pH POC ABG pCO2 POC ABG pO2 ABG pO2 ABG HCO3 ABG O2 Saturation ABG Base Excess ABG Hemoglobin VBG pH Oxyhemoglobin Sodium Potassium Chloride Carbon Dioxide BUN Creatinine Glucose POC Glucose 156 H 152 H 138 H Lactic Acid Calcium Phosphorus Magnesium Iron TIBC Direct Bilirubin AST ALT Alkaline Phosphatase Total Creatine Kinase CK-MB (CK-2) C-Reactive Protein Total Protein Albumin Vitamin B12 Salicylates Acetaminophen Miscellaneous Test Crossmatch 03/31/19 03/31/19 03/31/19 21:09 22:15 23:10 WBC RBC Hgb Hct MCV MCH MCHC RDW Plt Count [place] % (Auto) Lymph # Seg Neuts % (Manual) Lymphocytes % (Manual) Nucleated RBC % Seg Neutrophils # Man Lymphocytes # (Manual) Monocytes # (Manual) PT INR APTT D-Dimer POC ABG pH ABG pH POC ABG pCO2 POC ABG pO2 ABG pO2 ABG HCO3 ABG O2 Saturation ABG Base Excess ABG Hemoglobin VBG pH Oxyhemoglobin Sodium Potassium Chloride Carbon Dioxide BUN Creatinine Glucose POC Glucose 136 H 137 H 148 H Lactic Acid Calcium Phosphorus Magnesium Iron TIBC Direct Bilirubin AST ALT Alkaline Phosphatase Total Creatine Kinase CK-MB (CK-2) C-Reactive Protein Total Protein Albumin Vitamin B12 Salicylates Acetaminophen Miscellaneous Test Crossmatch 04/01/19 04/01/19 04/01/19 00:05 01:17 02:11 WBC RBC Hgb Hct MCV MCH MCHC RDW Plt Count [place] % (Auto) Lymph # Seg Neuts % (Manual) Lymphocytes % (Manual) Nucleated RBC % Seg Neutrophils # Man Lymphocytes # (Manual) Monocytes # (Manual) PT INR APTT D-Dimer POC ABG pH ABG pH POC ABG pCO2 POC ABG pO2 ABG pO2 ABG HCO3 ABG O2 Saturation ABG Base Excess ABG Hemoglobin VBG pH Oxyhemoglobin Sodium Potassium Chloride Carbon Dioxide BUN Creatinine Glucose POC Glucose 143 H 151 H 155 H Lactic Acid Calcium Phosphorus Magnesium Iron TIBC Direct Bilirubin AST ALT Alkaline Phosphatase Total Creatine Kinase CK-MB (CK-2) C-Reactive Protein Total Protein Albumin Vitamin B12 Salicylates Acetaminophen Miscellaneous Test Crossmatch 04/01/19 04/01/19 04/01/19 03:12 04:03 04:16 WBC RBC Hgb Hct MCV MCH MCHC RDW Plt Count [place] % (Auto) Lymph # Seg Neuts % (Manual) Lymphocytes % (Manual) Nucleated RBC % Seg Neutrophils # Man Lymphocytes # (Manual) Monocytes # (Manual) PT INR APTT D-Dimer POC ABG pH ABG pH POC ABG pCO2 POC ABG pO2 ABG pO2 ABG HCO3 ABG O2 Saturation ABG Base Excess ABG Hemoglobin VBG pH Oxyhemoglobin Sodium Potassium Chloride Carbon Dioxide BUN Creatinine Glucose POC Glucose 140 H 143 H 142 H Lactic Acid Calcium Phosphorus Magnesium Iron TIBC Direct Bilirubin AST ALT Alkaline Phosphatase Total Creatine Kinase CK-MB (CK-2) C-Reactive Protein Total Protein Albumin Vitamin B12 Salicylates Acetaminophen Miscellaneous Test Crossmatch 04/01/19 04/01/19 04/01/19 05:01 05:01 05:08 WBC RBC 2.05 L Hgb 6.8 L Hct 20.5 L MCV 100 H MCH 33 H MCHC RDW 17.7 H Plt Count 53 L [place] % (Auto) Lymph # Seg Neuts % (Manual) 71.0 H Lymphocytes % (Manual) Nucleated RBC % Seg Neutrophils # Man Lymphocytes # (Manual) Monocytes # (Manual) PT INR APTT D-Dimer POC ABG pH ABG pH POC ABG pCO2 POC ABG pO2 ABG pO2 ABG HCO3 ABG O2 Saturation ABG Base Excess ABG Hemoglobin VBG pH Oxyhemoglobin Sodium Potassium Chloride Carbon Dioxide BUN Creatinine Glucose POC Glucose 119 H Lactic Acid Calcium Phosphorus Magnesium Iron TIBC Direct Bilirubin 0.3 H AST 4601 H ALT 1542 H Alkaline Phosphatase 185 H Total Creatine Kinase CK-MB (CK-2) C-Reactive Protein Total Protein 3.8 L Albumin 1.6 L Vitamin B12 Salicylates Acetaminophen Miscellaneous Test Crossmatch 04/01/19 04/01/19 04/01/19 05:23 06:37 08:15 WBC RBC Hgb Hct MCV MCH MCHC RDW Plt Count [place] % (Auto) Lymph # Seg Neuts % (Manual) Lymphocytes % (Manual) Nucleated RBC % Seg Neutrophils # Man Lymphocytes # (Manual) Monocytes # (Manual) PT INR APTT D-Dimer POC ABG pH ABG pH POC ABG pCO2 POC ABG pO2 ABG pO2 ABG HCO3 ABG O2 Saturation ABG Base Excess ABG Hemoglobin VBG pH Oxyhemoglobin Sodium Potassium Chloride Carbon Dioxide BUN Creatinine Glucose POC Glucose 115 H 124 H 138 H Lactic Acid Calcium Phosphorus Magnesium Iron TIBC Direct Bilirubin AST ALT Alkaline Phosphatase Total Creatine Kinase CK-MB (CK-2) C-Reactive Protein Total Protein Albumin Vitamin B12 Salicylates Acetaminophen Miscellaneous Test Crossmatch 04/01/19 04/01/19 04/01/19 09:50 10:10 10:31 WBC RBC Hgb 6.5 L Hct 19.2 L* MCV MCH MCHC RDW Plt Count [place] % (Auto) Lymph # Seg Neuts % (Manual) Lymphocytes % (Manual) Nucleated RBC % Seg Neutrophils # Man Lymphocytes # (Manual) Monocytes # (Manual) PT INR APTT D-Dimer POC ABG pH ABG pH POC ABG pCO2 POC ABG pO2 ABG pO2 ABG HCO3 ABG O2 Saturation ABG Base Excess ABG Hemoglobin VBG pH Oxyhemoglobin Sodium 149 H Potassium 3.5 L Chloride 119.9 H Carbon Dioxide 21 L BUN 33 H Creatinine 0.5 L Glucose 142 H POC Glucose 185 H Lactic Acid Calcium 7.3 L Phosphorus Magnesium Iron TIBC Direct Bilirubin AST 3686 H ALT 1440 H Alkaline Phosphatase 185 H Total Creatine Kinase CK-MB (CK-2) C-Reactive Protein Total Protein 3.7 L Albumin 1.8 L Vitamin B12 Salicylates Acetaminophen Miscellaneous Test Crossmatch 04/01/19 04/01/19 04/01/19 11:35 13:05 14:35 WBC RBC Hgb Hct MCV MCH MCHC RDW Plt Count [place] % (Auto) Lymph # Seg Neuts % (Manual) Lymphocytes % (Manual) Nucleated RBC % Seg Neutrophils # Man Lymphocytes # (Manual) Monocytes # (Manual) PT INR APTT D-Dimer POC ABG pH ABG pH POC ABG pCO2 POC ABG pO2 ABG pO2 ABG HCO3 ABG O2 Saturation ABG Base Excess ABG Hemoglobin VBG pH Oxyhemoglobin Sodium Potassium Chloride Carbon Dioxide BUN Creatinine Glucose POC Glucose 201 H 169 H 134 H Lactic Acid Calcium Phosphorus Magnesium Iron TIBC Direct Bilirubin AST ALT Alkaline Phosphatase Total Creatine Kinase CK-MB (CK-2) C-Reactive Protein Total Protein Albumin Vitamin B12 Salicylates Acetaminophen Miscellaneous Test Crossmatch 04/01/19 04/01/19 04/01/19 17:13 17:14 18:30 WBC RBC Hgb Hct MCV MCH MCHC RDW Plt Count [place] % (Auto) Lymph # Seg Neuts % (Manual) Lymphocytes % (Manual) Nucleated RBC % Seg Neutrophils # Man Lymphocytes # (Manual) Monocytes # (Manual) PT INR APTT D-Dimer 5203.68 H POC ABG pH ABG pH POC ABG pCO2 POC ABG pO2 ABG pO2 ABG HCO3 ABG O2 Saturation ABG Base Excess ABG Hemoglobin VBG pH Oxyhemoglobin Sodium Potassium Chloride Carbon Dioxide BUN Creatinine Glucose POC Glucose 69 L 128 H Lactic Acid Calcium Phosphorus Magnesium Iron TIBC Direct Bilirubin AST ALT Alkaline Phosphatase Total Creatine Kinase CK-MB (CK-2) C-Reactive Protein Total Protein Albumin Vitamin B12 Salicylates Acetaminophen Miscellaneous Test Crossmatch 04/01/19 04/01/19 04/02/19 22:50 Unknown 03:40 WBC RBC Hgb Hct MCV MCH MCHC RDW Plt Count [place] % (Auto) Lymph # Seg Neuts % (Manual) Lymphocytes % (Manual) Nucleated RBC % Seg Neutrophils # Man Lymphocytes # (Manual) Monocytes # (Manual) PT INR APTT D-Dimer POC ABG pH ABG pH POC ABG pCO2 POC ABG pO2 ABG pO2 78.3 L 142.8 H ABG HCO3 15.5 L ABG O2 Saturation ABG Base Excess -3.5 L -8.2 L ABG Hemoglobin 6.8 L 8.2 L VBG pH Oxyhemoglobin 94.3 L Sodium Potassium Chloride Carbon Dioxide BUN Creatinine Glucose POC Glucose 342 H Lactic Acid Calcium Phosphorus Magnesium Iron TIBC Direct Bilirubin AST ALT Alkaline Phosphatase Total Creatine Kinase CK-MB (CK-2) C-Reactive Protein Total Protein Albumin Vitamin B12 Salicylates Acetaminophen Miscellaneous Test Crossmatch 04/02/19 04/02/19 04/02/19 03:49 06:50 07:48 WBC RBC 2.65 L Hgb 8.6 L Hct 25.1 L MCV MCH MCHC RDW 17.6 H Plt Count 48 L [place] % (Auto) Lymph # Seg Neuts % (Manual) Lymphocytes % (Manual) Nucleated RBC % Seg Neutrophils # Man Lymphocytes # (Manual) Monocytes # (Manual) PT INR APTT D-Dimer POC ABG pH ABG pH POC ABG pCO2 POC ABG pO2 ABG pO2 ABG HCO3 ABG O2 Saturation ABG Base Excess ABG Hemoglobin VBG pH Oxyhemoglobin Sodium Potassium Chloride Carbon Dioxide BUN Creatinine Glucose POC Glucose 247 H 200 H Lactic Acid Calcium Phosphorus Magnesium Iron TIBC Direct Bilirubin AST ALT Alkaline Phosphatase Total Creatine Kinase CK-MB (CK-2) C-Reactive Protein Total Protein Albumin Vitamin B12 Salicylates Acetaminophen Miscellaneous Test Crossmatch 04/02/19 04/02/19 04/02/19 07:48 11:18 14:07 WBC RBC Hgb Hct MCV MCH MCHC RDW Plt Count [place] % (Auto) Lymph # Seg Neuts % (Manual) Lymphocytes % (Manual) Nucleated RBC % Seg Neutrophils # Man Lymphocytes # (Manual) Monocytes # (Manual) PT INR APTT D-Dimer POC ABG pH ABG pH POC ABG pCO2 POC ABG pO2 ABG pO2 ABG HCO3 ABG O2 Saturation ABG Base Excess ABG Hemoglobin VBG pH Oxyhemoglobin Sodium Potassium 3.5 L Chloride 115.7 H Carbon Dioxide 19 L BUN 29 H Creatinine 0.5 L Glucose 159 H POC Glucose 154 H 149 H Lactic Acid Calcium 7.5 L Phosphorus Magnesium Iron TIBC Direct Bilirubin AST 1418 H ALT 1134 H Alkaline Phosphatase 242 H Total Creatine Kinase CK-MB (CK-2) C-Reactive Protein Total Protein 4.2 L Albumin 2.1 L Vitamin B12 Salicylates Acetaminophen Miscellaneous Test Crossmatch 04/02/19 04/02/19 04/02/19 18:09 19:46 23:05 WBC RBC Hgb Hct MCV MCH MCHC RDW Plt Count [place] % (Auto) Lymph # Seg Neuts % (Manual) Lymphocytes % (Manual) Nucleated RBC % Seg Neutrophils # Man Lymphocytes # (Manual) Monocytes # (Manual) PT INR APTT D-Dimer POC ABG pH ABG pH POC ABG pCO2 POC ABG pO2 ABG pO2 ABG HCO3 ABG O2 Saturation ABG Base Excess ABG Hemoglobin VBG pH Oxyhemoglobin Sodium Potassium Chloride Carbon Dioxide BUN Creatinine Glucose POC Glucose 188 H 209 H 247 H Lactic Acid Calcium Phosphorus Magnesium Iron TIBC Direct Bilirubin AST ALT Alkaline Phosphatase Total Creatine Kinase CK-MB (CK-2) C-Reactive Protein Total Protein Albumin Vitamin B12 Salicylates Acetaminophen Miscellaneous Test Crossmatch 04/03/19 04/03/19 04/03/19 02:58 03:40 03:40 WBC RBC 2.87 L Hgb 9.3 L Hct 27.0 L MCV MCH MCHC RDW 17.2 H Plt Count 65 L [place] % (Auto) 9.8 H Lymph # 1.1 L Seg Neuts % (Manual) Lymphocytes % (Manual) Nucleated RBC % Seg Neutrophils # Man Lymphocytes # (Manual) Monocytes # (Manual) PT INR APTT D-Dimer POC ABG pH ABG pH POC ABG pCO2 POC ABG pO2 ABG pO2 ABG HCO3 ABG O2 Saturation ABG Base Excess ABG Hemoglobin VBG pH Oxyhemoglobin Sodium 147 H Potassium 3.5 L Chloride 116.7 H Carbon Dioxide 18 L BUN Creatinine 0.4 L Glucose 150 H POC Glucose 166 H Lactic Acid Calcium 8.1 L Phosphorus 2.20 L Magnesium Iron TIBC Direct Bilirubin AST 594 H ALT 861 H Alkaline Phosphatase 299 H Total Creatine Kinase CK-MB (CK-2) C-Reactive Protein Total Protein 4.4 L Albumin 2.1 L Vitamin B12 Salicylates Acetaminophen Miscellaneous Test Crossmatch 04/03/19 04/03/19 04/03/19 05:35 07:02 08:23 WBC RBC Hgb Hct MCV MCH MCHC RDW Plt Count [place] % (Auto) Lymph # Seg Neuts % (Manual) Lymphocytes % (Manual) Nucleated RBC % Seg Neutrophils # Man Lymphocytes # (Manual) Monocytes # (Manual) PT INR APTT D-Dimer POC ABG pH ABG pH POC ABG pCO2 POC ABG pO2 ABG pO2 97.7 H ABG HCO3 19.3 L ABG O2 Saturation ABG Base Excess -5.0 L ABG Hemoglobin 8.0 L VBG pH Oxyhemoglobin Sodium Potassium Chloride Carbon Dioxide BUN Creatinine Glucose POC Glucose 135 H 132 H Lactic Acid Calcium Phosphorus Magnesium Iron TIBC Direct Bilirubin AST ALT Alkaline Phosphatase Total Creatine Kinase CK-MB (CK-2) C-Reactive Protein Total Protein Albumin Vitamin B12 Salicylates Acetaminophen Miscellaneous Test Crossmatch 04/03/19 04/03/19 04/03/19 11:58 15:11 17:53 WBC RBC Hgb Hct MCV MCH MCHC RDW Plt Count [place] % (Auto) Lymph # Seg Neuts % (Manual) Lymphocytes % (Manual) Nucleated RBC % Seg Neutrophils # Man Lymphocytes # (Manual) Monocytes # (Manual) PT INR APTT D-Dimer POC ABG pH ABG pH POC ABG pCO2 POC ABG pO2 ABG pO2 ABG HCO3 ABG O2 Saturation ABG Base Excess ABG Hemoglobin VBG pH Oxyhemoglobin Sodium Potassium Chloride Carbon Dioxide BUN Creatinine Glucose POC Glucose 179 H 213 H 223 H Lactic Acid Calcium Phosphorus Magnesium Iron TIBC Direct Bilirubin AST ALT Alkaline Phosphatase Total Creatine Kinase CK-MB (CK-2) C-Reactive Protein Total Protein Albumin Vitamin B12 Salicylates Acetaminophen Miscellaneous Test Crossmatch 04/03/19 04/04/19 04/04/19 23:06 02:36 06:41 WBC RBC Hgb Hct MCV MCH MCHC RDW Plt Count [place] % (Auto) Lymph # Seg Neuts % (Manual) Lymphocytes % (Manual) Nucleated RBC % Seg Neutrophils # Man Lymphocytes # (Manual) Monocytes # (Manual) PT INR APTT D-Dimer POC ABG pH ABG pH POC ABG pCO2 POC ABG pO2 ABG pO2 ABG HCO3 ABG O2 Saturation ABG Base Excess ABG Hemoglobin VBG pH Oxyhemoglobin Sodium Potassium Chloride Carbon Dioxide BUN Creatinine Glucose POC Glucose 189 H 157 H 131 H Lactic Acid Calcium Phosphorus Magnesium Iron TIBC Direct Bilirubin AST ALT Alkaline Phosphatase Total Creatine Kinase CK-MB (CK-2) C-Reactive Protein Total Protein Albumin Vitamin B12 Salicylates Acetaminophen Miscellaneous Test Crossmatch 04/04/19 04/04/19 04/04/19 11:42 15:45 18:21 WBC RBC Hgb Hct MCV MCH MCHC RDW Plt Count [place] % (Auto) Lymph # Seg Neuts % (Manual) Lymphocytes % (Manual) Nucleated RBC % Seg Neutrophils # Man Lymphocytes # (Manual) Monocytes # (Manual) PT INR APTT D-Dimer POC ABG pH ABG pH POC ABG pCO2 POC ABG pO2 ABG pO2 ABG HCO3 ABG O2 Saturation ABG Base Excess ABG Hemoglobin VBG pH Oxyhemoglobin Sodium Potassium Chloride Carbon Dioxide BUN Creatinine Glucose POC Glucose 233 H 236 H 255 H Lactic Acid Calcium Phosphorus Magnesium Iron TIBC Direct Bilirubin AST ALT Alkaline Phosphatase Total Creatine Kinase CK-MB (CK-2) C-Reactive Protein Total Protein Albumin Vitamin B12 Salicylates Acetaminophen Miscellaneous Test Crossmatch 04/04/19 04/05/19 04/05/19 21:21 03:06 06:05 WBC RBC 2.68 L Hgb 8.5 L Hct 26.3 L MCV 98 H MCH MCHC RDW 17.4 H Plt Count [place] % (Auto) Lymph # Seg Neuts % (Manual) Lymphocytes % (Manual) Nucleated RBC % Seg Neutrophils # Man Lymphocytes # (Manual) Monocytes # (Manual) PT INR APTT D-Dimer POC ABG pH ABG pH POC ABG pCO2 POC ABG pO2 ABG pO2 ABG HCO3 ABG O2 Saturation ABG Base Excess ABG Hemoglobin VBG pH Oxyhemoglobin Sodium Potassium Chloride Carbon Dioxide BUN Creatinine Glucose POC Glucose 132 H 161 H Lactic Acid Calcium Phosphorus Magnesium Iron TIBC Direct Bilirubin AST ALT Alkaline Phosphatase Total Creatine Kinase CK-MB (CK-2) C-Reactive Protein Total Protein Albumin Vitamin B12 Salicylates Acetaminophen Miscellaneous Test Crossmatch 04/05/19 04/05/19 04/05/19 06:05 06:49 10:23 WBC RBC Hgb Hct MCV MCH MCHC RDW Plt Count [place] % (Auto) Lymph # Seg Neuts % (Manual) Lymphocytes % (Manual) Nucleated RBC % Seg Neutrophils # Man Lymphocytes # (Manual) Monocytes # (Manual) PT INR APTT D-Dimer POC ABG pH ABG pH POC ABG pCO2 POC ABG pO2 ABG pO2 ABG HCO3 ABG O2 Saturation ABG Base Excess ABG Hemoglobin VBG pH Oxyhemoglobin Sodium Potassium Chloride 112.5 H Carbon Dioxide BUN Creatinine 0.2 L Glucose 237 H POC Glucose 283 H 296 H Lactic Acid Calcium 7.9 L Phosphorus Magnesium Iron TIBC Direct Bilirubin AST ALT Alkaline Phosphatase Total Creatine Kinase CK-MB (CK-2) C-Reactive Protein Total Protein Albumin Vitamin B12 Salicylates Acetaminophen Miscellaneous Test Crossmatch 04/05/19 04/05/19 04/05/19 14:46 18:19 20:35 WBC RBC Hgb Hct MCV MCH MCHC RDW Plt Count [place] % (Auto) Lymph # Seg Neuts % (Manual) Lymphocytes % (Manual) Nucleated RBC % Seg Neutrophils # Man Lymphocytes # (Manual) Monocytes # (Manual) PT INR APTT D-Dimer POC ABG pH ABG pH POC ABG pCO2 POC ABG pO2 ABG pO2 ABG HCO3 ABG O2 Saturation ABG Base Excess ABG Hemoglobin VBG pH Oxyhemoglobin Sodium Potassium Chloride Carbon Dioxide BUN Creatinine Glucose POC Glucose 225 H 259 H 236 H Lactic Acid Calcium Phosphorus Magnesium Iron TIBC Direct Bilirubin AST ALT Alkaline Phosphatase Total Creatine Kinase CK-MB (CK-2) C-Reactive Protein Total Protein Albumin Vitamin B12 Salicylates Acetaminophen Miscellaneous Test Crossmatch 04/05/19 04/06/19 04/06/19 23:11 00:06 03:14 WBC RBC Hgb Hct MCV MCH MCHC RDW Plt Count [place] % (Auto) Lymph # Seg Neuts % (Manual) Lymphocytes % (Manual) Nucleated RBC % Seg Neutrophils # Man Lymphocytes # (Manual) Monocytes # (Manual) PT INR APTT D-Dimer 4526.86 H POC ABG pH ABG pH POC ABG pCO2 POC ABG pO2 ABG pO2 ABG HCO3 ABG O2 Saturation ABG Base Excess ABG Hemoglobin VBG pH Oxyhemoglobin Sodium Potassium Chloride Carbon Dioxide BUN Creatinine Glucose POC Glucose 205 H 228 H Lactic Acid Calcium Phosphorus Magnesium Iron TIBC Direct Bilirubin AST ALT Alkaline Phosphatase Total Creatine Kinase CK-MB (CK-2) C-Reactive Protein Total Protein Albumin Vitamin B12 Salicylates Acetaminophen Miscellaneous Test Crossmatch 04/06/19 04/06/19 04/06/19 05:20 05:20 07:57 WBC 15.1 H RBC 2.90 L Hgb 9.1 L Hct 28.0 L MCV MCH MCHC RDW 17.3 H Plt Count [place] % (Auto) Lymph # Seg Neuts % (Manual) Lymphocytes % (Manual) Nucleated RBC % Seg Neutrophils # Man Lymphocytes # (Manual) Monocytes # (Manual) PT INR APTT D-Dimer POC ABG pH ABG pH POC ABG pCO2 POC ABG pO2 ABG pO2 ABG HCO3 ABG O2 Saturation ABG Base Excess ABG Hemoglobin VBG pH Oxyhemoglobin Sodium Potassium Chloride Carbon Dioxide BUN Creatinine 0.2 L Glucose 161 H POC Glucose 191 H Lactic Acid Calcium 8.0 L Phosphorus Magnesium Iron TIBC Direct Bilirubin AST ALT Alkaline Phosphatase Total Creatine Kinase CK-MB (CK-2) C-Reactive Protein Total Protein Albumin Vitamin B12 Salicylates Acetaminophen Miscellaneous Test Crossmatch 04/06/19 04/06/19 04/06/19 12:09 18:24 22:07 WBC RBC Hgb Hct MCV MCH MCHC RDW Plt Count [place] % (Auto) Lymph # Seg Neuts % (Manual) Lymphocytes % (Manual) Nucleated RBC % Seg Neutrophils # Man Lymphocytes # (Manual) Monocytes # (Manual) PT INR APTT D-Dimer POC ABG pH ABG pH POC ABG pCO2 POC ABG pO2 ABG pO2 ABG HCO3 ABG O2 Saturation ABG Base Excess ABG Hemoglobin VBG pH Oxyhemoglobin Sodium Potassium Chloride Carbon Dioxide BUN Creatinine Glucose POC Glucose 143 H 161 H 140 H Lactic Acid Calcium Phosphorus Magnesium Iron TIBC Direct Bilirubin AST ALT Alkaline Phosphatase Total Creatine Kinase CK-MB (CK-2) C-Reactive Protein Total Protein Albumin Vitamin B12 Salicylates Acetaminophen Miscellaneous Test Crossmatch 04/07/19 04/07/19 04/07/19 03:00 04:30 04:30 WBC 13.0 H RBC 2.65 L Hgb 8.3 L Hct 25.5 L MCV MCH MCHC RDW 17.0 H Plt Count [place] % (Auto) Lymph # Seg Neuts % (Manual) Lymphocytes % (Manual) Nucleated RBC % Seg Neutrophils # Man Lymphocytes # (Manual) Monocytes # (Manual) PT INR APTT D-Dimer POC ABG pH ABG pH POC ABG pCO2 POC ABG pO2 ABG pO2 ABG HCO3 ABG O2 Saturation ABG Base Excess ABG Hemoglobin VBG pH Oxyhemoglobin Sodium Potassium Chloride Carbon Dioxide BUN Creatinine 0.2 L Glucose 208 H POC Glucose 224 H Lactic Acid Calcium 7.7 L Phosphorus Magnesium Iron TIBC Direct Bilirubin AST ALT Alkaline Phosphatase Total Creatine Kinase CK-MB (CK-2) C-Reactive Protein Total Protein Albumin Vitamin B12 Salicylates Acetaminophen Miscellaneous Test Crossmatch 04/07/19 04/07/19 04/07/19 05:47 08:27 10:33 WBC RBC Hgb Hct MCV MCH MCHC RDW Plt Count [place] % (Auto) Lymph # Seg Neuts % (Manual) Lymphocytes % (Manual) Nucleated RBC % Seg Neutrophils # Man Lymphocytes # (Manual) Monocytes # (Manual) PT INR APTT D-Dimer POC ABG pH ABG pH POC ABG pCO2 POC ABG pO2 ABG pO2 ABG HCO3 ABG O2 Saturation ABG Base Excess ABG Hemoglobin VBG pH Oxyhemoglobin Sodium Potassium Chloride Carbon Dioxide BUN Creatinine Glucose POC Glucose 225 H 176 H 207 H Lactic Acid Calcium Phosphorus Magnesium Iron TIBC Direct Bilirubin AST ALT Alkaline Phosphatase Total Creatine Kinase CK-MB (CK-2) C-Reactive Protein Total Protein Albumin Vitamin B12 Salicylates Acetaminophen Miscellaneous Test Crossmatch 04/07/19 04/07/19 04/07/19 14:13 18:32 22:42 WBC RBC Hgb Hct MCV MCH MCHC RDW Plt Count [place] % (Auto) Lymph # Seg Neuts % (Manual) Lymphocytes % (Manual) Nucleated RBC % Seg Neutrophils # Man Lymphocytes # (Manual) Monocytes # (Manual) PT INR APTT D-Dimer POC ABG pH ABG pH POC ABG pCO2 POC ABG pO2 ABG pO2 ABG HCO3 ABG O2 Saturation ABG Base Excess ABG Hemoglobin VBG pH Oxyhemoglobin Sodium Potassium Chloride Carbon Dioxide BUN Creatinine Glucose POC Glucose 219 H 227 H 238 H Lactic Acid Calcium Phosphorus Magnesium Iron TIBC Direct Bilirubin AST ALT Alkaline Phosphatase Total Creatine Kinase CK-MB (CK-2) C-Reactive Protein Total Protein Albumin Vitamin B12 Salicylates Acetaminophen Miscellaneous Test Crossmatch 04/08/19 04/08/19 04/08/19 02:31 05:37 14:10 WBC RBC Hgb Hct MCV MCH MCHC RDW Plt Count [place] % (Auto) Lymph # Seg Neuts % (Manual) Lymphocytes % (Manual) Nucleated RBC % Seg Neutrophils # Man Lymphocytes # (Manual) Monocytes # (Manual) PT INR APTT D-Dimer POC ABG pH ABG pH POC ABG pCO2 POC ABG pO2 ABG pO2 ABG HCO3 ABG O2 Saturation ABG Base Excess ABG Hemoglobin VBG pH Oxyhemoglobin Sodium Potassium Chloride Carbon Dioxide BUN Creatinine Glucose POC Glucose 194 H 194 H 139 H Lactic Acid Calcium Phosphorus Magnesium Iron TIBC Direct Bilirubin AST ALT Alkaline Phosphatase Total Creatine Kinase CK-MB (CK-2) C-Reactive Protein Total Protein Albumin Vitamin B12 Salicylates Acetaminophen Miscellaneous Test Crossmatch 04/08/19 04/08/19 04/09/19 17:43 23:20 03:28 WBC RBC Hgb Hct MCV MCH MCHC RDW Plt Count [place] % (Auto) Lymph # Seg Neuts % (Manual) Lymphocytes % (Manual) Nucleated RBC % Seg Neutrophils # Man Lymphocytes # (Manual) Monocytes # (Manual) PT INR APTT D-Dimer POC ABG pH ABG pH POC ABG pCO2 POC ABG pO2 ABG pO2 ABG HCO3 ABG O2 Saturation ABG Base Excess ABG Hemoglobin VBG pH Oxyhemoglobin Sodium Potassium Chloride Carbon Dioxide BUN Creatinine Glucose POC Glucose 261 H 277 H 301 H Lactic Acid Calcium Phosphorus Magnesium Iron TIBC Direct Bilirubin AST ALT Alkaline Phosphatase Total Creatine Kinase CK-MB (CK-2) C-Reactive Protein Total Protein Albumin Vitamin B12 Salicylates Acetaminophen Miscellaneous Test Crossmatch 04/09/19 04/09/19 04/09/19 05:35 05:35 05:35 WBC RBC 2.78 L Hgb 9.0 L Hct 26.7 L MCV MCH MCHC RDW 17.0 H Plt Count [place] % (Auto) Lymph # Seg Neuts % (Manual) Lymphocytes % (Manual) Nucleated RBC % Seg Neutrophils # Man Lymphocytes # (Manual) Monocytes # (Manual) PT INR APTT D-Dimer POC ABG pH ABG pH POC ABG pCO2 POC ABG pO2 ABG pO2 ABG HCO3 ABG O2 Saturation ABG Base Excess ABG Hemoglobin VBG pH Oxyhemoglobin Sodium Potassium Chloride Carbon Dioxide 31 H BUN Creatinine 0.2 L Glucose 218 H POC Glucose 240 H Lactic Acid Calcium Phosphorus Magnesium Iron TIBC Direct Bilirubin AST ALT Alkaline Phosphatase Total Creatine Kinase CK-MB (CK-2) C-Reactive Protein Total Protein Albumin Vitamin B12 Salicylates Acetaminophen Miscellaneous Test Crossmatch 04/09/19 04/09/19 04/09/19 09:01 12:23 17:33 WBC RBC Hgb Hct MCV MCH MCHC RDW Plt Count [place] % (Auto) Lymph # Seg Neuts % (Manual) Lymphocytes % (Manual) Nucleated RBC % Seg Neutrophils # Man Lymphocytes # (Manual) Monocytes # (Manual) PT INR APTT D-Dimer POC ABG pH ABG pH POC ABG pCO2 POC ABG pO2 ABG pO2 ABG HCO3 ABG O2 Saturation ABG Base Excess ABG Hemoglobin VBG pH Oxyhemoglobin Sodium Potassium Chloride Carbon Dioxide BUN Creatinine Glucose POC Glucose 160 H 162 H 149 H Lactic Acid Calcium Phosphorus Magnesium Iron TIBC Direct Bilirubin AST ALT Alkaline Phosphatase Total Creatine Kinase CK-MB (CK-2) C-Reactive Protein Total Protein Albumin Vitamin B12 Salicylates Acetaminophen Miscellaneous Test Crossmatch 04/09/19 04/09/19 04/10/19 21:26 22:28 03:16 WBC RBC Hgb Hct MCV MCH MCHC RDW Plt Count [place] % (Auto) Lymph # Seg Neuts % (Manual) Lymphocytes % (Manual) Nucleated RBC % Seg Neutrophils # Man Lymphocytes # (Manual) Monocytes # (Manual) PT INR APTT D-Dimer POC ABG pH ABG pH POC ABG pCO2 POC ABG pO2 ABG pO2 ABG HCO3 ABG O2 Saturation ABG Base Excess ABG Hemoglobin VBG pH Oxyhemoglobin Sodium Potassium Chloride Carbon Dioxide BUN Creatinine Glucose POC Glucose 196 H 224 H 163 H Lactic Acid Calcium Phosphorus Magnesium Iron TIBC Direct Bilirubin AST ALT Alkaline Phosphatase Total Creatine Kinase CK-MB (CK-2) C-Reactive Protein Total Protein Albumin Vitamin B12 Salicylates Acetaminophen Miscellaneous Test Crossmatch 09/04/10/19 04/10/19 04:15 04:15 05:30 WBC RBC 2.88 L Hgb 9.2 L Hct 27.9 L MCV MCH MCHC RDW 17.0 H Plt Count 454 H [place] % (Auto) Lymph # Seg Neuts % (Manual) Lymphocytes % (Manual) Nucleated RBC % Seg Neutrophils # Man Lymphocytes # (Manual) Monocytes # (Manual) PT INR APTT D-Dimer POC ABG pH ABG pH POC ABG pCO2 POC ABG pO2 ABG pO2 ABG HCO3 ABG O2 Saturation ABG Base Excess ABG Hemoglobin VBG pH Oxyhemoglobin Sodium Potassium Chloride Carbon Dioxide 32 H BUN Creatinine 0.2 L Glucose 126 H POC Glucose 135 H Lactic Acid Calcium Phosphorus Magnesium Iron TIBC Direct Bilirubin AST ALT Alkaline Phosphatase Total Creatine Kinase CK-MB (CK-2) C-Reactive Protein Total Protein Albumin Vitamin B12 Salicylates Acetaminophen Miscellaneous Test Crossmatch 04/10/19 04/10/19 04/10/19 12:14 15:29 23:38 WBC RBC Hgb Hct MCV MCH MCHC RDW Plt Count [place] % (Auto) Lymph # Seg Neuts % (Manual) Lymphocytes % (Manual) Nucleated RBC % Seg Neutrophils # Man Lymphocytes # (Manual) Monocytes # (Manual) PT INR APTT D-Dimer POC ABG pH ABG pH POC ABG pCO2 POC ABG pO2 ABG pO2 ABG HCO3 ABG O2 Saturation ABG Base Excess ABG Hemoglobin VBG pH Oxyhemoglobin Sodium Potassium Chloride Carbon Dioxide BUN Creatinine Glucose POC Glucose 109 H 149 H 268 H Lactic Acid Calcium Phosphorus Magnesium Iron TIBC Direct Bilirubin AST ALT Alkaline Phosphatase Total Creatine Kinase CK-MB (CK-2) C-Reactive Protein Total Protein Albumin Vitamin B12 Salicylates Acetaminophen Miscellaneous Test Crossmatch 04/11/19 04/11/19 04/11/19 05:27 12:08 18:08 WBC RBC Hgb Hct MCV MCH MCHC RDW Plt Count [place] % (Auto) Lymph # Seg Neuts % (Manual) Lymphocytes % (Manual) Nucleated RBC % Seg Neutrophils # Man Lymphocytes # (Manual) Monocytes # (Manual) PT INR APTT D-Dimer POC ABG pH ABG pH POC ABG pCO2 POC ABG pO2 ABG pO2 ABG HCO3 ABG O2 Saturation ABG Base Excess ABG Hemoglobin VBG pH Oxyhemoglobin Sodium Potassium Chloride Carbon Dioxide BUN Creatinine Glucose POC Glucose 109 H 185 H 190 H Lactic Acid Calcium Phosphorus Magnesium Iron TIBC Direct Bilirubin AST ALT Alkaline Phosphatase Total Creatine Kinase CK-MB (CK-2) C-Reactive Protein Total Protein Albumin Vitamin B12 Salicylates Acetaminophen Miscellaneous Test Crossmatch 04/11/19 04/12/19 04/12/19 23:23 06:00 11:42 WBC RBC Hgb Hct MCV MCH MCHC RDW Plt Count [place] % (Auto) Lymph # Seg Neuts % (Manual) Lymphocytes % (Manual) Nucleated RBC % Seg Neutrophils # Man Lymphocytes # (Manual) Monocytes # (Manual) PT INR APTT D-Dimer POC ABG pH ABG pH POC ABG pCO2 POC ABG pO2 ABG pO2 ABG HCO3 ABG O2 Saturation ABG Base Excess ABG Hemoglobin VBG pH Oxyhemoglobin Sodium Potassium Chloride Carbon Dioxide BUN Creatinine Glucose POC Glucose 127 H 201 H 161 H Lactic Acid Calcium Phosphorus Magnesium Iron TIBC Direct Bilirubin AST ALT Alkaline Phosphatase Total Creatine Kinase CK-MB (CK-2) C-Reactive Protein Total Protein Albumin Vitamin B12 Salicylates Acetaminophen Miscellaneous Test Crossmatch 04/12/19 04/12/19 04/12/19 17:56 20:07 21:59 WBC RBC Hgb Hct MCV MCH MCHC RDW Plt Count [place] % (Auto) Lymph # Seg Neuts % (Manual) Lymphocytes % (Manual) Nucleated RBC % Seg Neutrophils # Man Lymphocytes # (Manual) Monocytes # (Manual) PT INR APTT D-Dimer POC ABG pH ABG pH POC ABG pCO2 POC ABG pO2 ABG pO2 ABG HCO3 ABG O2 Saturation ABG Base Excess ABG Hemoglobin VBG pH Oxyhemoglobin Sodium Potassium Chloride Carbon Dioxide BUN Creatinine Glucose POC Glucose 145 H 158 H 203 H Lactic Acid Calcium Phosphorus Magnesium Iron TIBC Direct Bilirubin AST ALT Alkaline Phosphatase Total Creatine Kinase CK-MB (CK-2) C-Reactive Protein Total Protein Albumin Vitamin B12 Salicylates Acetaminophen Miscellaneous Test Crossmatch 04/12/19 04/13/19 04/13/19 23:37 08:50 08:50 WBC 15.7 H RBC 3.12 L Hgb Hct 30.2 L MCV MCH 33 H MCHC RDW 18.0 H Plt Count 678 H [place] % (Auto) Lymph # Seg Neuts % (Manual) Lymphocytes % (Manual) Nucleated RBC % Seg Neutrophils # Man Lymphocytes # (Manual) Monocytes # (Manual) PT INR APTT D-Dimer POC ABG pH ABG pH POC ABG pCO2 POC ABG pO2 ABG pO2 ABG HCO3 ABG O2 Saturation ABG Base Excess ABG Hemoglobin VBG pH Oxyhemoglobin Sodium Potassium Chloride Carbon Dioxide BUN Creatinine < 0.2 L Glucose 46 L POC Glucose 238 H Lactic Acid Calcium Phosphorus Magnesium Iron TIBC Direct Bilirubin AST ALT Alkaline Phosphatase Total Creatine Kinase CK-MB (CK-2) C-Reactive Protein Total Protein Albumin Vitamin B12 Salicylates Acetaminophen Miscellaneous Test Crossmatch 04/13/19 04/13/19 04/13/19 11:56 17:27 23:57 WBC RBC Hgb Hct MCV MCH MCHC RDW Plt Count [place] % (Auto) Lymph # Seg Neuts % (Manual) Lymphocytes % (Manual) Nucleated RBC % Seg Neutrophils # Man Lymphocytes # (Manual) Monocytes # (Manual) PT INR APTT D-Dimer POC ABG pH ABG pH POC ABG pCO2 POC ABG pO2 ABG pO2 ABG HCO3 ABG O2 Saturation ABG Base Excess ABG Hemoglobin VBG pH Oxyhemoglobin Sodium Potassium Chloride Carbon Dioxide BUN Creatinine Glucose POC Glucose 40 L 66 L 65 L Lactic Acid Calcium Phosphorus Magnesium Iron TIBC Direct Bilirubin AST ALT Alkaline Phosphatase Total Creatine Kinase CK-MB (CK-2) C-Reactive Protein Total Protein Albumin Vitamin B12 Salicylates Acetaminophen Miscellaneous Test Crossmatch 04/14/19 04/14/19 04/14/19 05:28 08:20 08:20 WBC 17.8 H RBC 3.26 L Hgb Hct MCV 98 H MCH MCHC RDW 18.3 H Plt Count 622 H [place] % (Auto) Lymph # Seg Neuts % (Manual) Lymphocytes % (Manual) Nucleated RBC % Seg Neutrophils # Man Lymphocytes # (Manual) Monocytes # (Manual) PT INR APTT D-Dimer POC ABG pH ABG pH POC ABG pCO2 POC ABG pO2 ABG pO2 ABG HCO3 ABG O2 Saturation ABG Base Excess ABG Hemoglobin VBG pH Oxyhemoglobin Sodium Potassium Chloride Carbon Dioxide BUN 6 L Creatinine < 0.2 L Glucose 154 H POC Glucose 149 H Lactic Acid Calcium Phosphorus Magnesium Iron TIBC Direct Bilirubin AST ALT Alkaline Phosphatase Total Creatine Kinase CK-MB (CK-2) C-Reactive Protein Total Protein Albumin Vitamin B12 Salicylates Acetaminophen Miscellaneous Test Crossmatch 09/04/14/19 04/14/19 12:16 17:54 23:35 WBC RBC Hgb Hct MCV MCH MCHC RDW Plt Count [place] % (Auto) Lymph # Seg Neuts % (Manual) Lymphocytes % (Manual) Nucleated RBC % Seg Neutrophils # Man Lymphocytes # (Manual) Monocytes # (Manual) PT INR APTT D-Dimer POC ABG pH ABG pH POC ABG pCO2 POC ABG pO2 ABG pO2 ABG HCO3 ABG O2 Saturation ABG Base Excess ABG Hemoglobin VBG pH Oxyhemoglobin Sodium Potassium Chloride Carbon Dioxide BUN Creatinine Glucose POC Glucose 176 H 224 H 173 H Lactic Acid Calcium Phosphorus Magnesium Iron TIBC Direct Bilirubin AST ALT Alkaline Phosphatase Total Creatine Kinase CK-MB (CK-2) C-Reactive Protein Total Protein Albumin Vitamin B12 Salicylates Acetaminophen Miscellaneous Test Crossmatch 04/15/19 04/15/19 04/15/19 05:44 12:44 18:06 WBC RBC Hgb Hct MCV MCH MCHC RDW Plt Count [place] % (Auto) Lymph # Seg Neuts % (Manual) Lymphocytes % (Manual) Nucleated RBC % Seg Neutrophils # Man Lymphocytes # (Manual) Monocytes # (Manual) PT INR APTT D-Dimer POC ABG pH 7.461 H ABG pH POC ABG pCO2 45.5 H POC ABG pO2 ABG pO2 ABG HCO3 ABG O2 Saturation ABG Base Excess ABG Hemoglobin VBG pH Oxyhemoglobin Sodium Potassium Chloride Carbon Dioxide BUN Creatinine Glucose POC Glucose 255 H 365 H Lactic Acid Calcium Phosphorus Magnesium Iron TIBC Direct Bilirubin AST ALT Alkaline Phosphatase Total Creatine Kinase CK-MB (CK-2) C-Reactive Protein Total Protein Albumin Vitamin B12 Salicylates Acetaminophen Miscellaneous Test Crossmatch 04/15/19 04/15/19 04/16/19 18:06 23:34 00:40 WBC RBC Hgb Hct MCV MCH MCHC RDW Plt Count [place] % (Auto) Lymph # Seg Neuts % (Manual) Lymphocytes % (Manual) Nucleated RBC % Seg Neutrophils # Man Lymphocytes # (Manual) Monocytes # (Manual) PT INR APTT D-Dimer POC ABG pH ABG pH POC ABG pCO2 POC ABG pO2 ABG pO2 ABG HCO3 ABG O2 Saturation ABG Base Excess ABG Hemoglobin VBG pH Oxyhemoglobin Sodium Potassium Chloride Carbon Dioxide BUN Creatinine Glucose POC Glucose 157 H 56 L 107 H Lactic Acid Calcium Phosphorus Magnesium Iron TIBC Direct Bilirubin AST ALT Alkaline Phosphatase Total Creatine Kinase CK-MB (CK-2) C-Reactive Protein Total Protein Albumin Vitamin B12 Salicylates Acetaminophen Miscellaneous Test Crossmatch 04/16/19 04/16/19 04/16/19 09:06 09:06 11:21 WBC 12.9 H RBC 2.95 L Hgb 9.7 L Hct 28.9 L MCV 98 H MCH 33 H MCHC RDW 17.7 H Plt Count 581 H [place] % (Auto) Lymph # Seg Neuts % (Manual) Lymphocytes % (Manual) Nucleated RBC % Seg Neutrophils # Man Lymphocytes # (Manual) Monocytes # (Manual) PT INR APTT D-Dimer POC ABG pH ABG pH POC ABG pCO2 POC ABG pO2 ABG pO2 ABG HCO3 ABG O2 Saturation ABG Base Excess ABG Hemoglobin VBG pH Oxyhemoglobin Sodium Potassium Chloride Carbon Dioxide 31 H BUN Creatinine 0.2 L Glucose 155 H POC Glucose 184 H Lactic Acid Calcium Phosphorus Magnesium Iron TIBC Direct Bilirubin AST ALT Alkaline Phosphatase Total Creatine Kinase CK-MB (CK-2) C-Reactive Protein Total Protein Albumin Vitamin B12 Salicylates Acetaminophen Miscellaneous Test Crossmatch 04/16/19 04/16/19 04/16/19 17:28 20:17 23:09 WBC RBC Hgb Hct MCV MCH MCHC RDW Plt Count [place] % (Auto) Lymph # Seg Neuts % (Manual) Lymphocytes % (Manual) Nucleated RBC % Seg Neutrophils # Man Lymphocytes # (Manual) Monocytes # (Manual) PT INR APTT D-Dimer POC ABG pH 7.479 H ABG pH POC ABG pCO2 POC ABG pO2 71 L ABG pO2 ABG HCO3 ABG O2 Saturation ABG Base Excess ABG Hemoglobin VBG pH Oxyhemoglobin Sodium Potassium Chloride Carbon Dioxide BUN Creatinine Glucose POC Glucose 173 H 178 H Lactic Acid Calcium Phosphorus Magnesium Iron TIBC Direct Bilirubin AST ALT Alkaline Phosphatase Total Creatine Kinase CK-MB (CK-2) C-Reactive Protein Total Protein Albumin Vitamin B12 Salicylates Acetaminophen Miscellaneous Test Crossmatch 04/17/19 04/17/19 04/17/19 05:02 11:39 12:48 WBC RBC Hgb Hct MCV MCH MCHC RDW Plt Count [place] % (Auto) Lymph # Seg Neuts % (Manual) Lymphocytes % (Manual) Nucleated RBC % Seg Neutrophils # Man Lymphocytes # (Manual) Monocytes # (Manual) PT INR APTT D-Dimer POC ABG pH 7.557 H ABG pH POC ABG pCO2 32.8 L POC ABG pO2 149 H ABG pO2 ABG HCO3 ABG O2 Saturation ABG Base Excess ABG Hemoglobin VBG pH Oxyhemoglobin Sodium Potassium Chloride Carbon Dioxide BUN Creatinine Glucose POC Glucose 252 H 124 H Lactic Acid Calcium Phosphorus Magnesium Iron TIBC Direct Bilirubin AST ALT Alkaline Phosphatase Total Creatine Kinase CK-MB (CK-2) C-Reactive Protein Total Protein Albumin Vitamin B12 Salicylates Acetaminophen Miscellaneous Test Crossmatch 04/17/19 04/18/19 04/18/19 23:31 05:32 11:34 WBC RBC Hgb Hct MCV MCH MCHC RDW Plt Count [place] % (Auto) Lymph # Seg Neuts % (Manual) Lymphocytes % (Manual) Nucleated RBC % Seg Neutrophils # Man Lymphocytes # (Manual) Monocytes # (Manual) PT INR APTT D-Dimer POC ABG pH ABG pH POC ABG pCO2 POC ABG pO2 ABG pO2 ABG HCO3 ABG O2 Saturation ABG Base Excess ABG Hemoglobin VBG pH Oxyhemoglobin Sodium Potassium Chloride Carbon Dioxide BUN Creatinine Glucose POC Glucose 149 H 334 H 344 H Lactic Acid Calcium Phosphorus Magnesium Iron TIBC Direct Bilirubin AST ALT Alkaline Phosphatase Total Creatine Kinase CK-MB (CK-2) C-Reactive Protein Total Protein Albumin Vitamin B12 Salicylates Acetaminophen Miscellaneous Test Crossmatch 04/18/19 04/18/19 04/18/19 17:43 18:14 23:35 WBC RBC Hgb Hct MCV MCH MCHC RDW Plt Count [place] % (Auto) Lymph # Seg Neuts % (Manual) Lymphocytes % (Manual) Nucleated RBC % Seg Neutrophils # Man Lymphocytes # (Manual) Monocytes # (Manual) PT INR APTT D-Dimer POC ABG pH ABG pH POC ABG pCO2 49.2 H POC ABG pO2 ABG pO2 ABG HCO3 ABG O2 Saturation ABG Base Excess ABG Hemoglobin VBG pH Oxyhemoglobin Sodium Potassium Chloride Carbon Dioxide BUN Creatinine Glucose POC Glucose 289 H 312 H Lactic Acid Calcium Phosphorus Magnesium Iron TIBC Direct Bilirubin AST ALT Alkaline Phosphatase Total Creatine Kinase CK-MB (CK-2) C-Reactive Protein Total Protein Albumin Vitamin B12 Salicylates Acetaminophen Miscellaneous Test Crossmatch 04/19/19 04/19/19 04/19/19 04:35 05:55 12:26 WBC RBC Hgb Hct MCV MCH MCHC RDW Plt Count [place] % (Auto) Lymph # Seg Neuts % (Manual) Lymphocytes % (Manual) Nucleated RBC % Seg Neutrophils # Man Lymphocytes # (Manual) Monocytes # (Manual) PT INR APTT D-Dimer POC ABG pH 7.565 H ABG pH POC ABG pCO2 POC ABG pO2 ABG pO2 ABG HCO3 ABG O2 Saturation ABG Base Excess ABG Hemoglobin VBG pH Oxyhemoglobin Sodium Potassium Chloride Carbon Dioxide BUN Creatinine Glucose POC Glucose 172 H 271 H Lactic Acid Calcium Phosphorus Magnesium Iron TIBC Direct Bilirubin AST ALT Alkaline Phosphatase Total Creatine Kinase CK-MB (CK-2) C-Reactive Protein Total Protein Albumin Vitamin B12 Salicylates Acetaminophen Miscellaneous Test Crossmatch 04/19/19 04/19/19 04/19/19 17:54 21:10 23:35 WBC RBC Hgb Hct MCV MCH MCHC RDW Plt Count [place] % (Auto) Lymph # Seg Neuts % (Manual) Lymphocytes % (Manual) Nucleated RBC % Seg Neutrophils # Man Lymphocytes # (Manual) Monocytes # (Manual) PT INR APTT D-Dimer POC ABG pH ABG pH POC ABG pCO2 POC ABG pO2 ABG pO2 ABG HCO3 ABG O2 Saturation ABG Base Excess ABG Hemoglobin VBG pH Oxyhemoglobin Sodium Potassium Chloride Carbon Dioxide BUN Creatinine Glucose POC Glucose 229 H 189 H 131 H Lactic Acid Calcium Phosphorus Magnesium Iron TIBC Direct Bilirubin AST ALT Alkaline Phosphatase Total Creatine Kinase CK-MB (CK-2) C-Reactive Protein Total Protein Albumin Vitamin B12 Salicylates Acetaminophen Miscellaneous Test Crossmatch 04/20/19 04/20/19 04/20/19 05:42 11:58 17:32 WBC RBC Hgb Hct MCV MCH MCHC RDW Plt Count [place] % (Auto) Lymph # Seg Neuts % (Manual) Lymphocytes % (Manual) Nucleated RBC % Seg Neutrophils # Man Lymphocytes # (Manual) Monocytes # (Manual) PT INR APTT D-Dimer POC ABG pH ABG pH POC ABG pCO2 POC ABG pO2 ABG pO2 ABG HCO3 ABG O2 Saturation ABG Base Excess ABG Hemoglobin VBG pH Oxyhemoglobin Sodium Potassium Chloride Carbon Dioxide BUN Creatinine Glucose POC Glucose 289 H 265 H 232 H Lactic Acid Calcium Phosphorus Magnesium Iron TIBC Direct Bilirubin AST ALT Alkaline Phosphatase Total Creatine Kinase CK-MB (CK-2) C-Reactive Protein Total Protein Albumin Vitamin B12 Salicylates Acetaminophen Miscellaneous Test Crossmatch 04/21/19 04/21/19 04/21/19 00:02 05:13 12:41 WBC RBC Hgb Hct MCV MCH MCHC RDW Plt Count [place] % (Auto) Lymph # Seg Neuts % (Manual) Lymphocytes % (Manual) Nucleated RBC % Seg Neutrophils # Man Lymphocytes # (Manual) Monocytes # (Manual) PT INR APTT D-Dimer POC ABG pH ABG pH POC ABG pCO2 POC ABG pO2 ABG pO2 ABG HCO3 ABG O2 Saturation ABG Base Excess ABG Hemoglobin VBG pH Oxyhemoglobin Sodium Potassium Chloride Carbon Dioxide BUN Creatinine Glucose POC Glucose 126 H 233 H 205 H Lactic Acid Calcium Phosphorus Magnesium Iron TIBC Direct Bilirubin AST ALT Alkaline Phosphatase Total Creatine Kinase CK-MB (CK-2) C-Reactive Protein Total Protein Albumin Vitamin B12 Salicylates Acetaminophen Miscellaneous Test Crossmatch 04/21/19 04/22/19 04/22/19 23:42 03:57 03:57 WBC 11.5 H RBC 3.44 L Hgb Hct MCV MCH MCHC RDW 16.3 H Plt Count 510 H [place] % (Auto) Lymph # Seg Neuts % (Manual) Lymphocytes % (Manual) Nucleated RBC % Seg Neutrophils # Man Lymphocytes # (Manual) Monocytes # (Manual) PT INR APTT D-Dimer POC ABG pH ABG pH POC ABG pCO2 POC ABG pO2 ABG pO2 ABG HCO3 ABG O2 Saturation ABG Base Excess ABG Hemoglobin VBG pH Oxyhemoglobin Sodium Potassium Chloride 96.3 L Carbon Dioxide BUN Creatinine 0.2 L Glucose 333 H POC Glucose 149 H Lactic Acid Calcium Phosphorus Magnesium Iron TIBC Direct Bilirubin AST 60 H ALT Alkaline Phosphatase 204 H Total Creatine Kinase CK-MB (CK-2) C-Reactive Protein Total Protein Albumin 3.1 L Vitamin B12 Salicylates Acetaminophen Miscellaneous Test Crossmatch 04/22/19 04/22/19 04/22/19 05:18 12:03 18:17 WBC RBC Hgb Hct MCV MCH MCHC RDW Plt Count [place] % (Auto) Lymph # Seg Neuts % (Manual) Lymphocytes % (Manual) Nucleated RBC % Seg Neutrophils # Man Lymphocytes # (Manual) Monocytes # (Manual) PT INR APTT D-Dimer POC ABG pH ABG pH POC ABG pCO2 POC ABG pO2 ABG pO2 ABG HCO3 ABG O2 Saturation ABG Base Excess ABG Hemoglobin VBG pH Oxyhemoglobin Sodium Potassium Chloride Carbon Dioxide BUN Creatinine Glucose POC Glucose 345 H 308 H 169 H Lactic Acid Calcium Phosphorus Magnesium Iron TIBC Direct Bilirubin AST ALT Alkaline Phosphatase Total Creatine Kinase CK-MB (CK-2) C-Reactive Protein Total Protein Albumin Vitamin B12 Salicylates Acetaminophen Miscellaneous Test Crossmatch 04/23/19 04/23/19 04/23/19 00:14 05:43 11:15 WBC RBC Hgb Hct MCV MCH MCHC RDW Plt Count [place] % (Auto) Lymph # Seg Neuts % (Manual) Lymphocytes % (Manual) Nucleated RBC % Seg Neutrophils # Man Lymphocytes # (Manual) Monocytes # (Manual) PT INR APTT D-Dimer POC ABG pH ABG pH POC ABG pCO2 POC ABG pO2 ABG pO2 ABG HCO3 ABG O2 Saturation ABG Base Excess ABG Hemoglobin VBG pH Oxyhemoglobin Sodium Potassium Chloride Carbon Dioxide BUN Creatinine Glucose POC Glucose 192 H 260 H 186 H Lactic Acid Calcium Phosphorus Magnesium Iron TIBC Direct Bilirubin AST ALT Alkaline Phosphatase Total Creatine Kinase CK-MB (CK-2) C-Reactive Protein Total Protein Albumin Vitamin B12 Salicylates Acetaminophen Miscellaneous Test Crossmatch 04/23/19 04/23/19 04/24/19 15:44 21:30 00:09 WBC RBC Hgb Hct MCV MCH MCHC RDW Plt Count [place] % (Auto) Lymph # Seg Neuts % (Manual) Lymphocytes % (Manual) Nucleated RBC % Seg Neutrophils # Man Lymphocytes # (Manual) Monocytes # (Manual) PT INR APTT D-Dimer POC ABG pH ABG pH POC ABG pCO2 POC ABG pO2 ABG pO2 ABG HCO3 ABG O2 Saturation ABG Base Excess ABG Hemoglobin VBG pH Oxyhemoglobin Sodium Potassium Chloride Carbon Dioxide BUN Creatinine Glucose POC Glucose 164 H 407 H 280 H Lactic Acid Calcium Phosphorus Magnesium Iron TIBC Direct Bilirubin AST ALT Alkaline Phosphatase Total Creatine Kinase CK-MB (CK-2) C-Reactive Protein Total Protein Albumin Vitamin B12 Salicylates Acetaminophen Miscellaneous Test Crossmatch 04/24/19 04/24/19 04/24/19 06:01 06:39 14:51 WBC RBC Hgb Hct MCV MCH MCHC RDW Plt Count [place] % (Auto) Lymph # Seg Neuts % (Manual) Lymphocytes % (Manual) Nucleated RBC % Seg Neutrophils # Man Lymphocytes # (Manual) Monocytes # (Manual) PT INR APTT D-Dimer POC ABG pH ABG pH POC ABG pCO2 POC ABG pO2 ABG pO2 ABG HCO3 ABG O2 Saturation ABG Base Excess ABG Hemoglobin VBG pH Oxyhemoglobin Sodium Potassium Chloride Carbon Dioxide BUN Creatinine Glucose POC Glucose 65 L 125 H 207 H Lactic Acid Calcium Phosphorus Magnesium Iron TIBC Direct Bilirubin AST ALT Alkaline Phosphatase Total Creatine Kinase CK-MB (CK-2) C-Reactive Protein Total Protein Albumin Vitamin B12 Salicylates Acetaminophen Miscellaneous Test Crossmatch 04/24/19 04/25/19 04/25/19 18:03 01:46 05:56 WBC RBC Hgb Hct MCV MCH MCHC RDW Plt Count [place] % (Auto) Lymph # Seg Neuts % (Manual) Lymphocytes % (Manual) Nucleated RBC % Seg Neutrophils # Man Lymphocytes # (Manual) Monocytes # (Manual) PT INR APTT D-Dimer POC ABG pH ABG pH POC ABG pCO2 POC ABG pO2 ABG pO2 ABG HCO3 ABG O2 Saturation ABG Base Excess ABG Hemoglobin VBG pH Oxyhemoglobin Sodium Potassium Chloride Carbon Dioxide BUN Creatinine Glucose POC Glucose 140 H 125 H 208 H Lactic Acid Calcium Phosphorus Magnesium Iron TIBC Direct Bilirubin AST ALT Alkaline Phosphatase Total Creatine Kinase CK-MB (CK-2) C-Reactive Protein Total Protein Albumin Vitamin B12 Salicylates Acetaminophen Miscellaneous Test Crossmatch 04/25/19 04/25/19 08:12 13:06 WBC RBC Hgb Hct MCV MCH MCHC RDW Plt Count [place] % (Auto) Lymph # Seg Neuts % (Manual) Lymphocytes % (Manual) Nucleated RBC % Seg Neutrophils # Man Lymphocytes # (Manual) Monocytes # (Manual) PT INR APTT D-Dimer POC ABG pH ABG pH POC ABG pCO2 POC ABG pO2 ABG pO2 ABG HCO3 ABG O2 Saturation ABG Base Excess ABG Hemoglobin VBG pH Oxyhemoglobin Sodium Potassium Chloride Carbon Dioxide BUN Creatinine Glucose POC Glucose 127 H 147 H Lactic Acid Calcium Phosphorus Magnesium Iron TIBC Direct Bilirubin AST ALT Alkaline Phosphatase Total Creatine Kinase CK-MB (CK-2) C-Reactive Protein Total Protein Albumin Vitamin B12 Salicylates Acetaminophen Miscellaneous Test Crossmatch Allied health notes reviewed: nursing
[2019-04-25] MEDS: LANTUS SUB-Q SCH (22:52)
[2019-04-26] MEDS: HumaLOG SUB-Q SCH ×4 (00:32→18:03)
[2019-04-26] MEDS: KEPPRA PO SCH ×2 (10:03→23:48)
[2019-04-26] MEDS: ROBINUL FEEDTUBE SCH ×3 (10:03→23:49)
[2019-04-26] MEDS: PEPCID PO SCH (10:03)
[2019-04-26] MEDS: METOPROLOL PO SCH (10:03)
[2019-04-26] MEDS: ENOXAPARIN SUB-Q SCH (10:04)
[2019-04-26] MEDS: SODIUM CHLORIDE FLUSH SYRINGE 10 ML IV SCH ×2 (10:04→23:55)
--- NOTE | 2019-04-26 10:21 | Progress Note ---
Assessment and Plan Assessment and plan: Uncontrolled DM type 1 with hyperglycemia - cont. basal insulin Lantus - increase SSI Acute respiratory failure s/p intubated, off vent - s/p trach and peg - Tracheostomy re-adjusted on 04/17/19 - on vent, cont nebs, - s/p Trach POD 3 - Pulm following - Aspiration precautions - VAP bundle Acute anoxic encephalopathy, POA - from cardiac arrest -MR concerning for anoxic Brain injury Cardiac arrest s/p resuscitation - likely 2/2 severe hyperglycemia - preserved EF on 2D echo Generalized Anasacara -Given a dose of Bumex s/p DKA, severe Shock hypotensive +/- sepsis - resolved Now off pressors. Was on vasopressin, Levophed, Phenylephrine Sepsis with possible aspiration PNA - evident on CXR on admission with left sided infiltrates - Competed abx - Abx discontinued following notation that no evidence of liver lesion not consistent with infection per ID - Leucocytosis and thrombocytosis are likely reactive from hepatic subcapsular hematoma Head lice - multiple dosing of Permethin given, resolved Acute renal failure, likely vasomotor nephropathy - resolved Anemia, acute on chronic - no sign of blood loss s/p 2 Units PRBC transfused Hyperkalemia, resolved with fluid and insulin Hypernatremia Resolved hypokalemia, resolved Shock liver with elevated LFT and Coagulopathy - due to cardiac arrest and hypotension - cont to monitor Liver lesion ID Physician following Discontinued abx, not consistent with infection as noted above Hypermagnesemia - monitor levels as needed Hyperphosphatemia -cont to monitor, improved Stage 1 sacral ulcer, poa - upper ext blisters - pressure ulcer prevention strategies - wound care VTE Prophylaxis with Lovenox Poor prognosis DNR status Disposition: continue inpatient care, await placement in [place], [place] natural science 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 Her last well-known time was 10:30 in the morning, she was traveling with a friend, she was unresponsive in the back seat. EMS was called, CPR was started and continued here in the emergency room. Patient was intubated in the ER, noted hypotensive started on dobutamine, epinephrine and Levophed drip, given IV fluids, found to be in DKA with BG ~2200, several metabolic derangements - placed on insulin drip and admitted to ICU. BP improved and she was weaned off pressors. Pt off pressors and extubated. Transferred to floor awaiting placement Hospitalist Physical - Constitutional Vitals: Temp Pulse Resp BP Pulse Ox 97.0 F L 134 H 24 138/100 94 04/26/19 04:53 04/26/19 10:03 04/26/19 04:53 04/26/19 10:03 04/26/19 09:53 General appearance: Present: other (intubated) - EENT Eyes: Present: PERRL, EOM intact ENT: hearing intact, clear oral mucosa, dentition normal - Neck Neck: Present: supple, normal ROM - Respiratory Respiratory effort: normal Respiratory: bilateral: CTA - Cardiovascular Rhythm: regular Heart Sounds: Present: S1 & S2. Absent: gallop, rub - Extremities Extremities: no ischemia, No edema, Full ROM - Abdominal General gastrointestinal: soft, non-tender, non-distended, normal bowel sounds - Integumentary Integumentary: Present: clear, warm, dry - Neurologic Neurologic: CNII-XII intact, moves all extremities Results - Labs CBC & Chem 7: 04/22/19 03:57 04/22/19 03:57 Labs: Laboratory Last Values WBC 11.5 K/mm3 (4.5-11.0) H 04/22/19 03:57 RBC 3.44 M/mm3 (3.65-5.03) L 04/22/19 03:57 Hgb 10.6 gm/dl (10.1-14.3) 04/22/19 03:57 Hct 32.9 % (30.3-42.9) 04/22/19 03:57 MCV 96 fl (79-97) 04/22/19 03:57 MCH 31 pg (28-32) 04/22/19 03:57 MCHC 32 % (30-34) 04/22/19 03:57 RDW 16.3 % (13.2-15.2) H 04/22/19 03:57 Plt Count 510 K/mm3 (140-440) H 04/22/19 03:57 Lymph % (Auto) 16.9 % (13.4-35.0) 04/03/19 03:40 Gage % (Auto) 9.8 % (0.0-7.3) H 04/03/19 03:40 Eos % (Auto) 3.2 % (0.0-4.3) 04/03/19 03:40 Baso % (Auto) 0.4 % (0.0-1.8) 04/03/19 03:40 Lymph # 1.1 K/mm3 (1.2-5.4) L 04/03/19 03:40 Gage # 0.6 K/mm3 (0.0-0.8) 04/03/19 03:40 Eos # 0.2 K/mm3 (0.0-0.4) 04/03/19 03:40 Baso # 0.0 K/mm3 (0.0-0.1) 04/03/19 03:40 Add Manual Diff Complete 04/01/19 05:01 Total Counted 100 04/01/19 05:01 Seg Neutrophils % 69.7 % (40.0-70.0) 04/03/19 03:40 Seg Neuts % (Manual) 71.0 % (40.0-70.0) H 04/01/19 05:01 Band Neutrophils % 0 % 04/01/19 05:01 Lymphocytes % (Manual) 20.0 % (13.4-35.0) 04/01/19 05:01 Reactive Lymphs % (Man) 0 % 04/01/19 05:01 Monocytes % (Manual) 7.0 % (0.0-7.3) 04/01/19 05:01 Eosinophils % (Manual) 2.0 % (0.0-4.3) 04/01/19 05:01 Basophils % (Manual) 0 % (0.0-1.8) 04/01/19 05:01 Metamyelocytes % 0 % 04/01/19 05:01 Myelocytes % 0 % 04/01/19 05:01 Promyelocytes % 0 % 04/01/19 05:01 Blast Cells % 0 % 04/01/19 05:01 Nucleated RBC % Not Reportable 04/01/19 05:01 Seg Neutrophils # 4.4 K/mm3 (1.8-7.7) 04/03/19 03:40 Seg Neutrophils # Man 4.8 K/mm3 (1.8-7.7) 04/01/19 05:01 Band Neutrophils # 0.0 K/mm3 04/01/19 05:01 Lymphocytes # (Manual) 1.4 K/mm3 (1.2-5.4) 04/01/19 05:01 Abs React Lymphs (Man) 0.0 K/mm3 04/01/19 05:01 Monocytes # (Manual) 0.5 K/mm3 (0.0-0.8) 04/01/19 05:01 Eosinophils # (Manual) 0.1 K/mm3 (0.0-0.4) 04/01/19 05:01 Basophils # (Manual) 0.0 K/mm3 (0.0-0.1) 04/01/19 05:01 Metamyelocytes # 0.0 K/mm3 04/01/19 05:01 Myelocytes # 0.0 K/mm3 04/01/19 05:01 Promyelocytes # 0.0 K/mm3 04/01/19 05:01 Blast Cells # 0.0 K/mm3 04/01/19 05:01 WBC Morphology Not Reportable 04/01/19 05:01 Hypersegmented Neuts Not Reportable 04/01/19 05:01 Hyposegmented Neuts Not Reportable 04/01/19 05:01 Hypogranular Neuts Not Reportable 04/01/19 05:01 Smudge Cells Not Reportable 04/01/19 05:01 Toxic Granulation Not Reportable 04/01/19 05:01 Toxic Vacuolation Not Reportable 04/01/19 05:01 Dohle Bodies Not Reportable 04/01/19 05:01 Pelger-Huet Anomaly Not Reportable 04/01/19 05:01 Wong Rods Not Reportable 04/01/19 05:01 Platelet Estimate Not Reportable 04/01/19 05:01 Clumped Platelets Not Reportable 04/01/19 05:01 Plt Clumps, EDTA Not Reportable 04/01/19 05:01 Large Platelets Not Reportable 04/01/19 05:01 Giant Platelets Not Reportable 04/01/19 05:01 Platelet Satelliting Not Reportable 04/01/19 05:01 Plt Morphology Comment Not Reportable 04/01/19 05:01 RBC Morphology Normal 04/01/19 05:01 Dimorphic RBCs Not Reportable 04/01/19 05:01 Polychromasia Not Reportable 04/01/19 05:01 Hypochromasia Not Reportable 04/01/19 05:01 Poikilocytosis Not Reportable 04/01/19 05:01 Anisocytosis Not Reportable 04/01/19 05:01 Microcytosis Not Reportable 04/01/19 05:01 Macrocytosis Not Reportable 04/01/19 05:01 Spherocytes Not Reportable 04/01/19 05:01 Pappenheimer Bodies Not Reportable 04/01/19 05:01 Sickle Cells Not Reportable 04/01/19 05:01 Target Cells Not Reportable 04/01/19 05:01 Tear Drop Cells Not Reportable 04/01/19 05:01 Ovalocytes Not Reportable 04/01/19 05:01 Helmet Cells Not Reportable 04/01/19 05:01 [place] Bodies Not Reportable 04/01/19 05:01 Pavo Rings Not Reportable 04/01/19 05:01 [place] Cells Not Reportable 04/01/19 05:01 Bite Cells Not Reportable 04/01/19 05:01 Crenated Cell Not Reportable 04/01/19 05:01 Elliptocytes Not Reportable 04/01/19 05:01 Acanthocytes (Spur) Not Reportable 04/01/19 05:01 Rouleaux Not Reportable 04/01/19 05:01 Hemoglobin C Crystals Not Reportable 04/01/19 05:01 Schistocytes Not Reportable 04/01/19 05:01 Malaria parasites Not Reportable 04/01/19 05:01 Benja Bodies Not Reportable 04/01/19 05:01 Hem Pathologist Commnt No 04/01/19 05:01 PT 13.9 Sec. (12.2-14.9) 04/01/19 17:14 INR 1.10 (0.87-1.13) 04/01/19 17:14 APTT 74.5 Sec. (24.2-36.6) H* 03/29/19 19:20 Fibrinogen 313 mg/dl (211-480) 04/01/19 17:14 D-Dimer 4526.86 ng/mlDDU (0-234) H 04/06/19 00:06 Heparin Anti-Xa, Unfract Negative (Negative) 03/31/19 15:00 POC ABG pH 7.565 (7.35-7.45) H 04/19/19 04:35 ABG pH 7.396 pH Units (7.350-7.450) 04/03/19 05:35 POC ABG pCO2 36.2 (35-45) 04/19/19 04:35 ABG pCO2 32.2 mm Hg 04/03/19 05:35 POC ABG pO2 88 (80-105) 04/19/19 04:35 ABG pO2 97.7 mm Hg (80.0-90.0) H 04/03/19 05:35 POC ABG HCO3 32.8 (22-26 mml/L) 04/19/19 04:35 ABG HCO3 19.3 mmol/L (20.0-26.0) L 04/03/19 05:35 POC ABG Total CO2 34 (23-27mmol/L) 04/19/19 04:35 POC ABG O2 Sat 98 04/19/19 04:35 ABG O2 Saturation 97.6 % (95.0-99.0) 04/03/19 05:35 ABG O2 Content 10.9 (0.0-44) 04/03/19 05:35 POC ABG Base Excess 11 ((-2) - (+3)mmol/L) 04/19/19 04:35 ABG Base Excess -5.0 mmol/L (-2.0-3.0) L 04/03/19 05:35 ABG Hemoglobin 8.0 gm/dl (12.0-16.0) L 04/03/19 05:35 ABG Carboxyhemoglobin 2.1 % (0.0-5.0) 04/03/19 05:35 ABG Methemoglobin 0.5 % (0.0-1.5) 04/03/19 05:35 VBG pH 6.800 (7.320-7.420) L* 03/29/19 19:47 Oxyhemoglobin 95.1 % (95.0-99.0) 04/03/19 05:35 FiO2 40 % 04/19/19 04:35 Sodium 138 mmol/L (137-145) 04/22/19 03:57 Potassium 4.6 mmol/L (3.6-5.0) 04/22/19 03:57 Chloride 96.3 mmol/L (98-107) L 04/22/19 03:57 Carbon Dioxide 28 mmol/L (22-30) 04/22/19 03:57 Anion Gap 18 mmol/L 04/22/19 03:57 BUN 14 mg/dL (7-17) 04/22/19 03:57 Creatinine 0.2 mg/dL (0.7-1.2) L 04/22/19 03:57 Estimated GFR > 60 ml/min 04/22/19 03:57 BUN/Creatinine Ratio 70 % 04/22/19 03:57 Glucose 333 mg/dL (65-100) H 04/22/19 03:57 POC Glucose 136 (70-105) H 04/26/19 05:15 Lactic Acid 3.30 mmol/L (0.7-2.0) H* 03/31/19 07:50 Calcium 9.6 mg/dL (8.4-10.2) 04/22/19 03:57 Phosphorus 4.10 mg/dL (2.5-4.5) 04/09/19 16:25 Magnesium 1.70 mg/dL (1.7-2.3) 04/22/19 03:57 Iron 26 ug/dL (37-170) L 03/31/19 08:20 TIBC 193 mcg/dL (250-450) L 03/31/19 08:20 Total Bilirubin 0.20 mg/dL (0.1-1.2) 04/22/19 03:57 Direct Bilirubin 0.2 mg/dL (0-0.2) 04/02/19 07:48 Indirect Bilirubin 0.5 mg/dL 04/02/19 07:48 AST 60 units/L (5-40) H 04/22/19 03:57 ALT 31 units/L (7-56) 04/22/19 03:57 Alkaline Phosphatase 204 units/L (35-129) H 04/22/19 03:57 Total Creatine Kinase 2465 units/L (30-135) H 03/30/19 05:26 CK-MB (CK-2) 52.7 ng/mL (0.0-4.0) H 03/30/19 05:26 CK-MB (CK-2) Rel Index 2.1 (0-4) 03/30/19 05:26 Troponin T < 0.010 ng/mL (0.00-0.029) 04/06/19 05:20 C-Reactive Protein 2.40 mg/dL (0.00-1.30) H 03/30/19 12:57 Total Protein 7.6 g/dL (6.3-8.2) 04/22/19 03:57 Albumin 3.1 g/dL (3.9-5) L 04/22/19 03:57 Albumin/Globulin Ratio 0.7 % 04/22/19 03:57 Serotonin Release Assay See scanned result 03/31/19 15:00 Vitamin B12 > 2000 pg/mL (211-911) H 03/31/19 08:20 Folate > 20 ng/mL (7.3-26.0) 03/31/19 08:20 HCG, Qual Negative (Negative) 03/29/19 19:20 Urine Color Yellow (Yellow) 03/29/19 23:10 Urine Turbidity Slightly-cloudy (Clear) 03/29/19 23:10 Urine pH 6.0 (5.0-7.0) 03/29/19 23:10 Ur Specific [place] 1.021 (1.003-1.030) 03/29/19 23:10 Urine Protein 100 mg/dl mg/dL (Negative) 03/29/19 23:10 Urine Glucose (UA) >=500 mg/dL (Negative) 03/29/19 23:10 Urine Ketones 20 mg/dL (Negative) 03/29/19 23:10 Urine Blood Lg (Negative) 03/29/19 23:10 Urine Nitrite Neg (Negative) 03/29/19 23:10 Urine Bilirubin Neg (Negative) 03/29/19 23:10 Urine Urobilinogen < 2.0 mg/dL (<2.0) 03/29/19 23:10 Ur Leukocyte Esterase Neg (Negative) 03/29/19 23:10 Urine WBC (Auto) 1.0 /HPF (0.0-6.0) 03/29/19 23:10 Urine RBC (Auto) 1.0 /HPF (0.0-6.0) 03/29/19 23:10 Urine Mucus Few /HPF 03/29/19 23:10 Salicylates 0.8 mg/dL (2.8-20.0) L 03/30/19 Unknown Urine Opiates Screen Presumptive negative 03/29/19 23:10 Urine Methadone Screen Presumptive negative 03/29/19 23:10 Acetaminophen < 5.0 ug/mL (10.0-30.0) L 03/30/19 Unknown Ur Barbiturates Screen Presumptive negative 03/29/19 23:10 Ur Phencyclidine Scrn Presumptive negative 03/29/19 23:10 Ur Amphetamines Screen Presumptive negative 03/29/19 23:10 U Benzodiazepines Scrn Presumptive negative 03/29/19 23:10 Urine Cocaine Screen Presumptive negative 03/29/19 23:10 U Marijuana (THC) Screen Presumptive negative 03/29/19 23:10 Drugs of Abuse Note Disclamer 03/29/19 23:10 Heparin-induced Plt Ab Negative (Negative) 03/31/19 15:00 UF Heparin High Dose 0 % Release 03/31/19 15:00 FABIAN UFH Low Dose 0.1 0 % Release 03/31/19 15:00 FABIAN UFH Low Dose 0.5 0 % Release 03/31/19 15:00 Hepatitis A IgM Ab Non-reactive (NonReactive) 03/30/19 Unknown Hep Bs Antigen Non-reactive (Negative) 03/30/19 Unknown Hep B Core IgM Ab Non-reactive (NonReactive) 03/30/19 Unknown Hepatitis C Antibody Non-reactive (NonReactive) 03/30/19 Unknown Miscellaneous Test Flexitest 1 H 03/30/19 14:00 Blood Type O POSITIVE 03/30/19 03:30 Antibody Screen Negative 03/30/19 03:30 Crossmatch See Detail 03/30/19 03:30 Active Medications - Current Medications Current Medications: Generic Name Dose Route Start Last Admin Trade Name Freq PRN Reason Stop Dose Admin Acetaminophen 650 mg 03/29/19 23:34 04/21/19 21:02 Tylenol PO 650 mg Q4H PRN Administration Pain MILD(1-3)/Fever >100.5/WARE Lipase/Protease/Amylase 1 each 04/02/19 11:44 Pancreaze 10,500 Unit FEEDTUBE PRN PRN For Clogged Feeding Tube Dextrose 50 ml 04/21/19 12:03 D50w (25gm) Syringe IV PRN PRN Hypoglycemia Enoxaparin Sodium 40 mg 04/14/19 10:00 04/26/19 10:04 Lovenox SUB-Q 40 mg QDAY@1000 ZAMZAM Administration Famotidine 20 mg 04/02/19 10:00 04/26/19 10:03 Pepcid PO 20 mg BID ZAMZAM Administration Fentanyl 25 mcg 04/14/19 14:00 04/23/19 15:23 Duragesic TD 25 mcg Q3D ZAMZAM Administration Glycopyrrolate 1 mg 04/22/19 20:00 04/26/19 10:03 Robinul FEEDTUBE 1 mg TID [facility] Administration Hydrophilic Ointment 1 applic 03/30/19 11:24 04/22/19 08:37 Vaseline Lip Therapy TP 1 applic Q2HR PRN Administration Dry Lips Insulin Glargine 20 units 04/09/19 22:00 04/25/19 22:52 Lantus SUB-Q 20 units QHS [facility] Administration Insulin Human Lispro 0 unit 04/21/19 13:00 04/26/19 05:09 Humalog SUB-Q Not Given Q6HR [facility] Protocol Levetiracetam 500 mg 04/03/19 10:00 04/26/19 10:03 Keppra PO 500 mg BID [facility] Administration Metoprolol Tartrate 5 mg 04/14/19 13:06 04/22/19 08:29 Lopressor IV 5 mg Q6HR PRN Administration Tachyarrhythmias Metoprolol Tartrate 25 mg 04/16/19 10:00 04/26/19 10:03 Lopressor PO 25 mg BID ZAMZAM Administration Multi-Ingred Cream/Lotion/Oil/Oint 1 applic 03/30/19 11:24 04/06/19 11:39 Artificial Tears Ophth Oint OU 1 applic Q4HR PRN Administration Dry Eye(s) Ondansetron HCl 4 mg 03/29/19 23:34 Zofran IV Q8H PRN Nausea And Vomiting Scopolamine 1 each 04/17/19 12:00 04/23/19 11:49 Transderm-Scop TD 1 each Q3D ZAMZAM Administration Simple Syrup 15 ml 04/02/19 11:44 04/24/19 06:02 Simple Syrup FEEDTUBE 15 ml PRN PRN Administration Hypoglycemia Simple Syrup 30 ml 04/02/19 11:44 Simple Syrup FEEDTUBE PRN PRN Hypoglycemia Sodium Bicarbonate 325 mg 04/02/19 11:44 Sodium Bicarbonate FEEDTUBE PRN PRN For Clogged Feeding Tube Sodium Chloride 10 ml 03/30/19 10:00 04/26/19 10:04 Sodium Chloride Flush Syringe 10 Ml IV 10 ml BID ZAMZAM Administration Sodium Chloride 10 ml 03/29/19 23:34 04/22/19 08:29 Sodium Chloride Flush Syringe 10 Ml IV 10 ml PRN PRN Administration LINE FLUSH Nutrition/Malnutrition Assess - Dietary Evaluation Nutrition/Malnutrition Findings: Nutrition Notes Start: 03/30/19 13:14 Freq: Status: Active Protocol: Document 04/25/19 09:43 RS (Rec: 04/25/19 10:30 RS [id number]) Co-Sign 04/25/19 09:43 NHALL Nutrition Notes Initial or Follow up Reassessment Current Diagnosis Acute Kidney Injury,Diabetes, Sepsis,Respiratory Failure Other Pertinent Diagnosis s/p trach & PEG, s/p cardiac arrest, DKA, ARF, Shock liver Current Diet Glucerna 1.2 at 50 ml/hr Labs/Tests POC glu 127 Pertinent Medications Reviewed Height 5 ft Weight 40.1 kg [place] Body Weight (kg) 45.45 BMI 17.2 Subjective/Other Information Glucerna running at 50 ml/hr via PEG. Tech reports pt is tolerating TF. Percent of energy/protein needs met: 100%/100% Burn Absent Trauma Absent #1 Nutrition Diagnosis Inadequate oral intake Diagnosis Progress(for reassessment Continues documentation) Is patient on ventilator? Yes Is Patient Ambulatory and/or Out of Bed No REE-([facility]-confined to bed) 1247.496 Kcal/Kg value to use for calculation 35 Approximate Energy Requirements Using 1404 kcal/Kg Calculation Used for Recommendations [facility] Additional Notes Protein: 1.2-1.5g/k-60g/ day Fluids: 1ml/kcal Nutrition Intervention Change Diet Order: Continue TF Nutrition Support: Glucerna 1.2 at 50ml/hr with 80ml water flush q4h. Kcal 1,440 Protein (gm) 72 Fluid (mL) 966 Goal #1 Meet at least 75% of energy and protein needs Follow-Up By: 05/02/19 Additional Comments F/U for stable TF rate and wt
[2019-04-26] MEDS: TRANSDERM-SCOP TD SCH (12:05)
[2019-04-26] MEDS: DURAGESIC TD SCH (14:07)
[2019-04-26] MEDS: LANTUS SUB-Q SCH (23:48)
[2019-04-27] MEDS: PEPCID PO SCH ×3 (00:14→22:21)
[2019-04-27] MEDS: METOPROLOL PO SCH ×3 (00:15→22:00)
[2019-04-27] MEDS: HumaLOG SUB-Q SCH ×4 (00:19→17:33)
[2019-04-27] MEDS: ROBINUL FEEDTUBE SCH ×3 (08:00→19:47)
--- NOTE | 2019-04-27 10:08 | Progress Note ---
Assessment and Plan Assessment and plan: Uncontrolled DM type 1 with hyperglycemia - cont. basal insulin Lantus - increase SSI Acute respiratory failure s/p intubated, off vent - s/p trach and peg - Tracheostomy re-adjusted on 04/17/19 - on vent, cont nebs, - s/p Trach POD 3 - Pulm following - Aspiration precautions - VAP bundle Acute anoxic encephalopathy, POA - from cardiac arrest -MR concerning for anoxic Brain injury Cardiac arrest s/p resuscitation - likely 2/2 severe hyperglycemia - preserved EF on 2D echo Generalized Anasacara -Given a dose of Bumex s/p DKA, severe Shock hypotensive +/- sepsis - resolved Now off pressors. Was on vasopressin, Levophed, Phenylephrine Sepsis with possible aspiration PNA - evident on CXR on admission with left sided infiltrates - Competed abx - Abx discontinued following notation that no evidence of liver lesion not consistent with infection per ID - Leucocytosis and thrombocytosis are likely reactive from hepatic subcapsular hematoma Head lice - multiple dosing of Permethin given, resolved Acute renal failure, likely vasomotor nephropathy - resolved Anemia, acute on chronic - no sign of blood loss s/p 2 Units PRBC transfused Hyperkalemia, resolved with fluid and insulin Hypernatremia Resolved hypokalemia, resolved Shock liver with elevated LFT and Coagulopathy - due to cardiac arrest and hypotension - cont to monitor Liver lesion ID Physician following Discontinued abx, not consistent with infection as noted above Hypermagnesemia - monitor levels as needed Hyperphosphatemia -cont to monitor, improved Stage 1 sacral ulcer, poa - upper ext blisters - pressure ulcer prevention strategies - wound care VTE Prophylaxis with Lovenox Poor prognosis DNR status Disposition: continue inpatient care, await placement in [place], [place] manager community relations in contact with the family History Interval history: Patient is a 29 year old woman with a history of diabetes was brought to the emergency room following a cardiac arrest. Her last well-known time was 10:30 in the morning, she was traveling with a friend, she was unresponsive in the back seat. EMS was called, CPR was started and continued here in the emergency room. Patient was intubated in the ER, noted hypotensive started on dobutamine, epinephrine and Levophed drip, given IV fluids, found to be in DKA with BG ~2200, several metabolic derangements - placed on insulin drip and admitted to ICU. BP improved and she was weaned off pressors. Pt off pressors and extubated. Transferred to floor awaiting placement Hospitalist Physical - Constitutional Vitals: Temp Pulse Resp BP Pulse Ox 98.0 F 122 H 22 131/95 95 04/27/19 06:08 04/27/19 06:08 04/27/19 06:08 04/27/19 06:08 04/27/19 06:08 General appearance: Present: other (intubated) - EENT Eyes: Present: PERRL, EOM intact ENT: hearing intact, clear oral mucosa, dentition normal - Neck Neck: Present: supple, normal ROM - Respiratory Respiratory effort: normal Respiratory: bilateral: CTA - Cardiovascular Rhythm: regular Heart Sounds: Present: S1 & S2. Absent: gallop, rub - Extremities Extremities: no ischemia, No edema, Full ROM - Abdominal General gastrointestinal: soft, non-tender, non-distended, normal bowel sounds - Integumentary Integumentary: Present: clear, warm, dry - Neurologic Neurologic: CNII-XII intact, moves all extremities Results - Labs CBC & Chem 7: 04/22/19 03:57 04/22/19 03:57 Labs: Laboratory Last Values WBC 11.5 K/mm3 (4.5-11.0) H 04/22/19 03:57 RBC 3.44 M/mm3 (3.65-5.03) L 04/22/19 03:57 Hgb 10.6 gm/dl (10.1-14.3) 04/22/19 03:57 Hct 32.9 % (30.3-42.9) 04/22/19 03:57 MCV 96 fl (79-97) 04/22/19 03:57 MCH 31 pg (28-32) 04/22/19 03:57 MCHC 32 % (30-34) 04/22/19 03:57 RDW 16.3 % (13.2-15.2) H 04/22/19 03:57 Plt Count 510 K/mm3 (140-440) H 04/22/19 03:57 Lymph % (Auto) 16.9 % (13.4-35.0) 04/03/19 03:40 [place] % (Auto) 9.8 % (0.0-7.3) H 04/03/19 03:40 Eos % (Auto) 3.2 % (0.0-4.3) 04/03/19 03:40 Baso % (Auto) 0.4 % (0.0-1.8) 04/03/19 03:40 Lymph # 1.1 K/mm3 (1.2-5.4) L 04/03/19 03:40 [place] # 0.6 K/mm3 (0.0-0.8) 04/03/19 03:40 Eos # 0.2 K/mm3 (0.0-0.4) 04/03/19 03:40 Baso # 0.0 K/mm3 (0.0-0.1) 04/03/19 03:40 Add Manual Diff Complete 04/01/19 05:01 Total Counted 100 04/01/19 05:01 Seg Neutrophils % 69.7 % (40.0-70.0) 04/03/19 03:40 Seg Neuts % (Manual) 71.0 % (40.0-70.0) H 04/01/19 05:01 Band Neutrophils % 0 % 04/01/19 05:01 Lymphocytes % (Manual) 20.0 % (13.4-35.0) 04/01/19 05:01 Reactive Lymphs % (Man) 0 % 04/01/19 05:01 Monocytes % (Manual) 7.0 % (0.0-7.3) 04/01/19 05:01 Eosinophils % (Manual) 2.0 % (0.0-4.3) 04/01/19 05:01 Basophils % (Manual) 0 % (0.0-1.8) 04/01/19 05:01 Metamyelocytes % 0 % 04/01/19 05:01 Myelocytes % 0 % 04/01/19 05:01 Promyelocytes % 0 % 04/01/19 05:01 Blast Cells % 0 % 04/01/19 05:01 Nucleated RBC % Not Reportable 04/01/19 05:01 Seg Neutrophils # 4.4 K/mm3 (1.8-7.7) 04/03/19 03:40 Seg Neutrophils # Man 4.8 K/mm3 (1.8-7.7) 04/01/19 05:01 Band Neutrophils # 0.0 K/mm3 04/01/19 05:01 Lymphocytes # (Manual) 1.4 K/mm3 (1.2-5.4) 04/01/19 05:01 Abs React Lymphs (Man) 0.0 K/mm3 04/01/19 05:01 Monocytes # (Manual) 0.5 K/mm3 (0.0-0.8) 04/01/19 05:01 Eosinophils # (Manual) 0.1 K/mm3 (0.0-0.4) 04/01/19 05:01 Basophils # (Manual) 0.0 K/mm3 (0.0-0.1) 04/01/19 05:01 Metamyelocytes # 0.0 K/mm3 04/01/19 05:01 Myelocytes # 0.0 K/mm3 04/01/19 05:01 Promyelocytes # 0.0 K/mm3 04/01/19 05:01 Blast Cells # 0.0 K/mm3 04/01/19 05:01 WBC Morphology Not Reportable 04/01/19 05:01 Hypersegmented Neuts Not Reportable 04/01/19 05:01 Hyposegmented Neuts Not Reportable 04/01/19 05:01 Hypogranular Neuts Not Reportable 04/01/19 05:01 Smudge Cells Not Reportable 04/01/19 05:01 Toxic Granulation Not Reportable 04/01/19 05:01 Toxic Vacuolation Not Reportable 04/01/19 05:01 Dohle Bodies Not Reportable 04/01/19 05:01 Pelger-Huet Anomaly Not Reportable 04/01/19 05:01 Wong Rods Not Reportable 04/01/19 05:01 Platelet Estimate Not Reportable 04/01/19 05:01 Clumped Platelets Not Reportable 04/01/19 05:01 Plt Clumps, EDTA Not Reportable 04/01/19 05:01 Large Platelets Not Reportable 04/01/19 05:01 Giant Platelets Not Reportable 04/01/19 05:01 Platelet Satelliting Not Reportable 04/01/19 05:01 Plt Morphology Comment Not Reportable 04/01/19 05:01 RBC Morphology Normal 04/01/19 05:01 Dimorphic RBCs Not Reportable 04/01/19 05:01 Polychromasia Not Reportable 04/01/19 05:01 Hypochromasia Not Reportable 04/01/19 05:01 Poikilocytosis Not Reportable 04/01/19 05:01 Anisocytosis Not Reportable 04/01/19 05:01 Microcytosis Not Reportable 04/01/19 05:01 Macrocytosis Not Reportable 04/01/19 05:01 Spherocytes Not Reportable 04/01/19 05:01 Pappenheimer Bodies Not Reportable 04/01/19 05:01 Sickle Cells Not Reportable 04/01/19 05:01 Target Cells Not Reportable 04/01/19 05:01 Tear Drop Cells Not Reportable 04/01/19 05:01 Ovalocytes Not Reportable 04/01/19 05:01 Helmet Cells Not Reportable 04/01/19 05:01 [place] Bodies Not Reportable 04/01/19 05:01 [place] Rings Not Reportable 04/01/19 05:01 [place] Cells Not Reportable 04/01/19 05:01 Bite Cells Not Reportable 04/01/19 05:01 Crenated Cell Not Reportable 04/01/19 05:01 Elliptocytes Not Reportable 04/01/19 05:01 Acanthocytes (Spur) Not Reportable 04/01/19 05:01 Rouleaux Not Reportable 04/01/19 05:01 Hemoglobin C Crystals Not Reportable 04/01/19 05:01 Schistocytes Not Reportable 04/01/19 05:01 Malaria parasites Not Reportable 04/01/19 05:01 [place] Bodies Not Reportable 04/01/19 05:01 Hem Pathologist Commnt No 04/01/19 05:01 PT 13.9 Sec. (12.2-14.9) 04/01/19 17:14 INR 1.10 (0.87-1.13) 04/01/19 17:14 APTT 74.5 Sec. (24.2-36.6) H* 03/29/19 19:20 Fibrinogen 313 mg/dl (211-480) 04/01/19 17:14 D-Dimer 4526.86 ng/mlDDU (0-234) H 04/06/19 00:06 Heparin Anti-Xa, Unfract Negative (Negative) 03/31/19 15:00 POC ABG pH 7.565 (7.35-7.45) H 04/19/19 04:35 ABG pH 7.396 pH Units (7.350-7.450) 04/03/19 05:35 POC ABG pCO2 36.2 (35-45) 04/19/19 04:35 ABG pCO2 32.2 mm Hg 04/03/19 05:35 POC ABG pO2 88 (80-105) 04/19/19 04:35 ABG pO2 97.7 mm Hg (80.0-90.0) H 04/03/19 05:35 POC ABG HCO3 32.8 (22-26 mml/L) 04/19/19 04:35 ABG HCO3 19.3 mmol/L (20.0-26.0) L 04/03/19 05:35 POC ABG Total CO2 34 (23-27mmol/L) 04/19/19 04:35 POC ABG O2 Sat 98 04/19/19 04:35 ABG O2 Saturation 97.6 % (95.0-99.0) 04/03/19 05:35 ABG O2 Content 10.9 (0.0-44) 04/03/19 05:35 POC ABG Base Excess 11 ((-2) - (+3)mmol/L) 04/19/19 04:35 ABG Base Excess -5.0 mmol/L (-2.0-3.0) L 04/03/19 05:35 ABG Hemoglobin 8.0 gm/dl (12.0-16.0) L 04/03/19 05:35 ABG Carboxyhemoglobin 2.1 % (0.0-5.0) 04/03/19 05:35 ABG Methemoglobin 0.5 % (0.0-1.5) 04/03/19 05:35 VBG pH 6.800 (7.320-7.420) L* 03/29/19 19:47 Oxyhemoglobin 95.1 % (95.0-99.0) 04/03/19 05:35 FiO2 40 % 04/19/19 04:35 Sodium 138 mmol/L (137-145) 04/22/19 03:57 Potassium 4.6 mmol/L (3.6-5.0) 04/22/19 03:57 Chloride 96.3 mmol/L (98-107) L 04/22/19 03:57 Carbon Dioxide 28 mmol/L (22-30) 04/22/19 03:57 Anion Gap 18 mmol/L 04/22/19 03:57 BUN 14 mg/dL (7-17) 04/22/19 03:57 Creatinine 0.2 mg/dL (0.7-1.2) L 04/22/19 03:57 Estimated GFR > 60 ml/min 04/22/19 03:57 BUN/Creatinine Ratio 70 % 04/22/19 03:57 Glucose 333 mg/dL (65-100) H 04/22/19 03:57 POC Glucose 199 (70-105) H 04/27/19 06:14 Lactic Acid 3.30 mmol/L (0.7-2.0) H* 03/31/19 07:50 Calcium 9.6 mg/dL (8.4-10.2) 04/22/19 03:57 Phosphorus 4.10 mg/dL (2.5-4.5) 04/09/19 16:25 Magnesium 1.70 mg/dL (1.7-2.3) 04/22/19 03:57 Iron 26 ug/dL (37-170) L 03/31/19 08:20 TIBC 193 mcg/dL (250-450) L 03/31/19 08:20 Total Bilirubin 0.20 mg/dL (0.1-1.2) 04/22/19 03:57 Direct Bilirubin 0.2 mg/dL (0-0.2) 04/02/19 07:48 Indirect Bilirubin 0.5 mg/dL 04/02/19 07:48 AST 60 units/L (5-40) H 04/22/19 03:57 ALT 31 units/L (7-56) 04/22/19 03:57 Alkaline Phosphatase 204 units/L (35-129) H 04/22/19 03:57 Total Creatine Kinase 2465 units/L (30-135) H 03/30/19 05:26 CK-MB (CK-2) 52.7 ng/mL (0.0-4.0) H 03/30/19 05:26 CK-MB (CK-2) Rel Index 2.1 (0-4) 03/30/19 05:26 Troponin T < 0.010 ng/mL (0.00-0.029) 04/06/19 05:20 C-Reactive Protein 2.40 mg/dL (0.00-1.30) H 03/30/19 12:57 Total Protein 7.6 g/dL (6.3-8.2) 04/22/19 03:57 Albumin 3.1 g/dL (3.9-5) L 04/22/19 03:57 Albumin/Globulin Ratio 0.7 % 04/22/19 03:57 Serotonin Release Assay See scanned result 03/31/19 15:00 Vitamin B12 > 2000 pg/mL (211-911) H 03/31/19 08:20 Folate > 20 ng/mL (7.3-26.0) 03/31/19 08:20 HCG, Qual Negative (Negative) 03/29/19 19:20 Urine Color Yellow (Yellow) 03/29/19 23:10 Urine Turbidity Slightly-cloudy (Clear) 03/29/19 23:10 Urine pH 6.0 (5.0-7.0) 03/29/19 23:10 Ur Specific [place] 1.021 (1.003-1.030) 03/29/19 23:10 Urine Protein 100 mg/dl mg/dL (Negative) 03/29/19 23:10 Urine Glucose (UA) >=500 mg/dL (Negative) 03/29/19 23:10 Urine Ketones 20 mg/dL (Negative) 03/29/19 23:10 Urine Blood Lg (Negative) 03/29/19 23:10 Urine Nitrite Neg (Negative) 03/29/19 23:10 Urine Bilirubin Neg (Negative) 03/29/19 23:10 Urine Urobilinogen < 2.0 mg/dL (<2.0) 03/29/19 23:10 Ur Leukocyte Esterase Neg (Negative) 03/29/19 23:10 Urine WBC (Auto) 1.0 /HPF (0.0-6.0) 03/29/19 23:10 Urine RBC (Auto) 1.0 /HPF (0.0-6.0) 03/29/19 23:10 Urine Mucus Few /HPF 03/29/19 23:10 Salicylates 0.8 mg/dL (2.8-20.0) L 03/30/19 Unknown Urine Opiates Screen Presumptive negative 03/29/19 23:10 Urine Methadone Screen Presumptive negative 03/29/19 23:10 Acetaminophen < 5.0 ug/mL (10.0-30.0) L 03/30/19 Unknown Ur Barbiturates Screen Presumptive negative 03/29/19 23:10 Ur Phencyclidine Scrn Presumptive negative 03/29/19 23:10 Ur Amphetamines Screen Presumptive negative 03/29/19 23:10 U Benzodiazepines Scrn Presumptive negative 03/29/19 23:10 Urine Cocaine Screen Presumptive negative 03/29/19 23:10 U Marijuana (THC) Screen Presumptive negative 03/29/19 23:10 Drugs of Abuse Note Disclamer 03/29/19 23:10 Heparin-induced Plt Ab Negative (Negative) 03/31/19 15:00 UF Heparin High Dose 0 % Release 03/31/19 15:00 FABIAN UFH Low Dose 0.1 0 % Release 03/31/19 15:00 FABIAN UFH Low Dose 0.5 0 % Release 03/31/19 15:00 Hepatitis A IgM Ab Non-reactive (NonReactive) 03/30/19 Unknown Hep Bs Antigen Non-reactive (Negative) 03/30/19 Unknown Hep B Core IgM Ab Non-reactive (NonReactive) 03/30/19 Unknown Hepatitis C Antibody Non-reactive (NonReactive) 03/30/19 Unknown Miscellaneous Test Flexitest 1 H 03/30/19 14:00 Blood Type O POSITIVE 03/30/19 03:30 Antibody Screen Negative 03/30/19 03:30 Crossmatch See Detail 03/30/19 03:30 Active Medications - Current Medications Current Medications: Generic Name Dose Route Start Last Admin Trade Name Freq PRN Reason Stop Dose Admin Acetaminophen 650 mg 03/29/19 23:34 04/21/19 21:02 Tylenol PO 650 mg Q4H PRN Administration Pain MILD(1-3)/Fever >100.5/WARE Lipase/Protease/Amylase 1 each 04/02/19 11:44 Pancrefranco Daniels 10,500 Unit FEEDTUBE PRN PRN For Clogged Feeding Tube Dextrose 50 ml 04/21/19 12:03 D50w (25gm) Syringe IV PRN PRN Hypoglycemia Enoxaparin Sodium 40 mg 04/14/19 10:00 04/26/19 10:04 Lovenox SUB-Q 40 mg QDAY@1000 ZAMZAM Administration Famotidine 20 mg 04/02/19 10:00 04/27/19 00:14 Pepcid PO 20 mg BID ZAMZAM Administration Fentanyl 25 mcg 04/14/19 14:00 04/26/19 14:07 Duragesic TD 25 mcg Q3D ZAMZAM Administration Glycopyrrolate 1 mg 04/22/19 20:00 04/26/19 23:49 Robinul FEEDTUBE 1 mg TID ZAMZAM Administration Hydrophilic Ointment 1 applic 03/30/19 11:24 04/22/19 08:37 Vaseline Lip Therapy TP 1 applic Q2HR PRN Administration Dry Lips Insulin Glargine 20 units 04/09/19 22:00 04/26/19 23:48 Lantus SUB-Q 20 units QHS ZAMZAM Administration Insulin Human Lispro 0 unit 04/21/19 13:00 04/27/19 07:12 Humalog SUB-Q 3 unit Q6HR ZAMZAM Administration Protocol Levetiracetam 500 mg 04/03/19 10:00 04/26/19 23:48 Keppra PO 500 mg BID ZAMZAM Administration Metoprolol Tartrate 5 mg 04/14/19 13:06 04/22/19 08:29 Lopressor IV 5 mg Q6HR PRN Administration Tachyarrhythmias Metoprolol Tartrate 25 mg 04/16/19 10:00 04/27/19 00:15 Lopressor PO 25 mg BID ZAMZAM Administration Multi-Ingred Cream/Lotion/Oil/Oint 1 applic 03/30/19 11:24 04/06/19 11:39 Artificial Tears Ophth Oint OU 1 applic Q4HR PRN Administration Dry Eye(s) Ondansetron HCl 4 mg 03/29/19 23:34 Zofran IV Q8H PRN Nausea And Vomiting Scopolamine 1 each 04/17/19 12:00 04/26/19 12:05 Transderm-Scop TD 1 each Q3D ZAMZAM Administration Simple Syrup 15 ml 04/02/19 11:44 04/24/19 06:02 Simple Syrup FEEDTUBE 15 ml PRN PRN Administration Hypoglycemia Simple Syrup 30 ml 04/02/19 11:44 Simple Syrup FEEDTUBE PRN PRN Hypoglycemia Sodium Bicarbonate 325 mg 04/02/19 11:44 Sodium Bicarbonate FEEDTUBE PRN PRN For Clogged Feeding Tube Sodium Chloride 10 ml 03/30/19 10:00 04/26/19 23:55 Sodium Chloride Flush Syringe 10 Ml IV 10 ml BID ZAMZAM Administration Sodium Chloride 10 ml 03/29/19 23:34 04/22/19 08:29 Sodium Chloride Flush Syringe 10 Ml IV 10 ml PRN PRN Administration LINE FLUSH Nutrition/Malnutrition Assess - Dietary Evaluation Nutrition/Malnutrition Findings: Nutrition Notes Start: 03/30/19 13:14 Freq: Status: Active Protocol: Document 04/25/19 09:43 RS (Rec: 04/25/19 10:30 RS [id number]) Co-Sign 04/25/19 09:43 NHALL Nutrition Notes Initial or Follow up Reassessment Current Diagnosis Acute Kidney Injury,Diabetes, Sepsis,Respiratory Failure Other Pertinent Diagnosis s/p trach & PEG, s/p cardiac arrest, DKA, ARF, Shock liver Current Diet Glucerna 1.2 at 50 ml/hr Labs/Tests POC glu 127 Pertinent Medications Reviewed Height 5 ft Weight 40.1 kg [place] Body Weight (kg) 45.45 BMI 17.2 Subjective/Other Information Glucerna running at 50 ml/hr via PEG. Tech reports pt is tolerating TF. Percent of energy/protein needs met: 100%/100% Burn Absent Trauma Absent #1 Nutrition Diagnosis Inadequate oral intake Diagnosis Progress(for reassessment Continues documentation) Is patient on ventilator? Yes Is Patient Ambulatory and/or Out of Bed No REE-([facility]-confined to bed) 1247.496 Kcal/Kg value to use for calculation 35 Approximate Energy Requirements Using 1404 kcal/Kg Calculation Used for Recommendations [facility] Additional Notes Protein: 1.2-1.5g/k-60g/ day Fluids: 1ml/kcal Nutrition Intervention Change Diet Order: Continue TF Nutrition Support: Glucerna 1.2 at 50ml/hr with 80ml water flush q4h. Kcal 1,440 Protein (gm) 72 Fluid (mL) 966 Goal #1 Meet at least 75% of energy and protein needs Follow-Up By: 05/02/19 Additional Comments F/U for stable TF rate and wt
--- NOTE | 2019-04-27 10:56 | Progress Note ---
Assessment and Plan Acute toxic metabolic encephalopathy. Diabetic ketoacidosis. Severe sepsis with shock. Possible aspiration pneumonia. History of polysubstance abuse. Leukocytosis. Elevated serum transaminases, possible shock liver. Hyponatremia related to her severe hyperglycemia. Anemia that is macrocytic. History of seizure disorder. Severe metabolic acidosis. Acute kidney injury, possibly on chronic - continue to wean supplemental O2 to keep O2 sats > 90% - continue bronchodilators with pulmonary hygiene per RT - continue contact isolation - continue to follow mental status closely - follow clinically off AB's - continue enteral nutrition with glucerna and adjust rate per real estate officer - VTE prophylaxis - Stress ulcer prophylaxis - continue accuchecks with glycemic control per SSI for target blood glucose 140-180 mg/dL - continue Keppra for seizures - continue mobility protocols / off loading for pressure ulcer prevention - continue Seizure precautions - fall precautions - neuro-checks per RN - continue other care per attending / other consultants CONDITION: IMPROVED PROGNOSIS: GUARDED CODE STATUS: DNR/DNI Subjective Date of service: 04/27/19 Principal diagnosis: Ac Hypoxemic Resp Failure; DKA; Severe sepsis with shock; ANGELICA Interval history: Patient is seen today for: Acute Hypoxemic Resp Failure; Ac toxic metabolic encephalopathy; DKA; Severe sepsis with shock; Possible aspiration pneumonia; History of polysubstance abuse; History of seizure disorder; Acute kidney i njury, possibly on chronic Seen and examined at bedside; 24hour events reviewed; nursing and respiratory care staff consulted; no adverse overnight events reported to me; resting peacefully in bed; AMS is persistent; remains on supplemental oxygen therapy Objective Vital Signs - 12hr 04/27/19 04/27/19 04/27/19 00:15 00:19 04:44 Temperature 98.0 F Pulse Rate 96 H 116 H Respiratory 20 Rate Blood Pressure 138/86 140/92 O2 Sat by Pulse 98 Oximetry O2 Sat by Pulse 96 Oximetry [ Assessment] 04/27/19 06:08 Temperature 98.0 F Pulse Rate 122 H Respiratory 22 Rate Blood Pressure 131/95 O2 Sat by Pulse 95 Oximetry O2 Sat by Pulse Oximetry [ Assessment] Constitutional: no acute distress, asleep, other (young CF normocephalic and atraumatic s/p tracheostomy to ATP, copious secretions) Eyes: non-icteric ENT: oropharynx moist Neck: supple, no lymphadenopathy, no JVD, other (midline trach tube) Effort: mildly labored Ascultation: Bilateral: rhonchi Percussion: Bilateral: not dull Cardiovascular: regular rate and rhythm Gastrointestinal: normoactive bowel sounds, soft, non-tender, non-distended, other (PEG tube) Integumentary: normal Extremities: no cyanosis, no edema, pink and warm, pulses normal, no ischemia or petechiae Neurologic: unable to assess (awake, alert, not obeying commands) Psychiatric: other (unable to assess) CBC and BMP: 04/22/19 03:57 04/22/19 03:57 ABG, PT/INR, D-dimer: ABG POC ABG pH 7.565 (7.35-7.45) H 04/19/19 04:35 ABG pH 7.396 pH Units (7.350-7.450) 04/03/19 05:35 POC ABG pCO2 36.2 (35-45) 04/19/19 04:35 ABG pCO2 32.2 mm Hg 04/03/19 05:35 POC ABG pO2 88 (80-105) 04/19/19 04:35 ABG pO2 97.7 mm Hg (80.0-90.0) H 04/03/19 05:35 POC ABG HCO3 32.8 (22-26 mml/L) 04/19/19 04:35 POC ABG Total CO2 34 (23-27mmol/L) 04/19/19 04:35 POC ABG O2 Sat 98 04/19/19 04:35 ABG O2 Saturation 97.6 % (95.0-99.0) 04/03/19 05:35 PT/INR, D-dimer PT 13.9 Sec. (12.2-14.9) 04/01/19 17:14 INR 1.10 (0.87-1.13) 04/01/19 17:14 D-Dimer 4526.86 ng/mlDDU (0-234) H 04/06/19 00:06 Abnormal lab findings: Abnormal Labs 03/29/19 03/29/19 03/29/19 19:11 19:20 19:20 WBC 26.7 H RBC 2.52 L Hgb 8.1 L Hct MCV 148 H MCH MCHC 22 L RDW 18.5 H Plt Count [place] % (Auto) Lymph # Seg Neuts % (Manual) 82.0 H Lymphocytes % (Manual) 7.0 L Nucleated RBC % Seg Neutrophils # Man 21.9 H Lymphocytes # (Manual) Monocytes # (Manual) 1.9 H PT 21.8 H INR 1.95 H APTT 74.5 H* D-Dimer POC ABG pH ABG pH POC ABG pCO2 POC ABG pO2 ABG pO2 ABG HCO3 ABG O2 Saturation ABG Base Excess ABG Hemoglobin VBG pH Oxyhemoglobin Sodium Potassium Chloride Carbon Dioxide BUN Creatinine Glucose POC Glucose > 500 H Lactic Acid Calcium Phosphorus Magnesium Iron TIBC Direct Bilirubin AST ALT Alkaline Phosphatase Total Creatine Kinase CK-MB (CK-2) C-Reactive Protein Total Protein Albumin Vitamin B12 Salicylates Acetaminophen Miscellaneous Test Crossmatch 03/29/19 03/29/19 03/29/19 19:20 19:47 20:59 WBC RBC Hgb Hct MCV MCH MCHC RDW Plt Count [place] % (Auto) Lymph # Seg Neuts % (Manual) Lymphocytes % (Manual) Nucleated RBC % Seg Neutrophils # Man Lymphocytes # (Manual) Monocytes # (Manual) PT INR APTT D-Dimer POC ABG pH 6.892 L ABG pH POC ABG pCO2 POC ABG pO2 236 H ABG pO2 ABG HCO3 ABG O2 Saturation ABG Base Excess ABG Hemoglobin VBG pH 6.800 L* Oxyhemoglobin Sodium 118 L* Potassium 9.0 H* Chloride 64.5 L Carbon Dioxide 7 L* BUN 53 H Creatinine 2.1 H Glucose 2196 H* POC Glucose Lactic Acid Calcium 12.4 H* Phosphorus Magnesium Iron TIBC Direct Bilirubin AST 3900 H ALT 1034 H Alkaline Phosphatase 316 H Total Creatine Kinase CK-MB (CK-2) C-Reactive Protein Total Protein 5.1 L Albumin 2.8 L Vitamin B12 Salicylates Acetaminophen Miscellaneous Test Crossmatch 03/29/19 03/29/19 03/29/19 22:45 22:45 22:45 WBC RBC Hgb Hct MCV MCH MCHC RDW Plt Count [place] % (Auto) Lymph # Seg Neuts % (Manual) Lymphocytes % (Manual) Nucleated RBC % Seg Neutrophils # Man Lymphocytes # (Manual) Monocytes # (Manual) PT INR APTT D-Dimer POC ABG pH ABG pH POC ABG pCO2 POC ABG pO2 ABG pO2 ABG HCO3 ABG O2 Saturation ABG Base Excess ABG Hemoglobin VBG pH Oxyhemoglobin Sodium 132 L D Potassium 7.0 H* Chloride 84.3 L Carbon Dioxide 3 L* BUN 48 H Creatinine 1.8 H Glucose 1779 H* POC Glucose Lactic Acid Calcium Phosphorus 21.70 H Magnesium 4.70 H Iron TIBC Direct Bilirubin AST ALT Alkaline Phosphatase Total Creatine Kinase 363 H CK-MB (CK-2) C-Reactive Protein Total Protein Albumin Vitamin B12 Salicylates Acetaminophen Miscellaneous Test Crossmatch 03/29/19 03/29/19 03/30/19 Unknown Unknown 00:11 WBC RBC Hgb Hct MCV MCH MCHC RDW Plt Count [place] % (Auto) Lymph # Seg Neuts % (Manual) Lymphocytes % (Manual) Nucleated RBC % Seg Neutrophils # Man Lymphocytes # (Manual) Monocytes # (Manual) PT INR APTT D-Dimer POC ABG pH ABG pH POC ABG pCO2 POC ABG pO2 ABG pO2 ABG HCO3 ABG O2 Saturation ABG Base Excess ABG Hemoglobin VBG pH Oxyhemoglobin Sodium 122 L Potassium 7.9 H* 6.4 H* Chloride 75.3 L 89.7 L Carbon Dioxide 3 L* 12 L D BUN 52 H 46 H Creatinine 2.0 H 1.7 H Glucose 2043 H* 1591 H* POC Glucose Lactic Acid Calcium 7.8 L Phosphorus 19.30 H Magnesium 3.90 H Iron TIBC Direct Bilirubin AST ALT Alkaline Phosphatase Total Creatine Kinase CK-MB (CK-2) C-Reactive Protein Total Protein Albumin Vitamin B12 Salicylates Acetaminophen Miscellaneous Test Crossmatch 03/30/19 03/30/19 03/30/19 00:11 02:14 02:14 WBC RBC Hgb Hct MCV MCH MCHC RDW Plt Count [place] % (Auto) Lymph # Seg Neuts % (Manual) Lymphocytes % (Manual) Nucleated RBC % Seg Neutrophils # Man Lymphocytes # (Manual) Monocytes # (Manual) PT INR APTT D-Dimer POC ABG pH ABG pH POC ABG pCO2 POC ABG pO2 ABG pO2 ABG HCO3 ABG O2 Saturation ABG Base Excess ABG Hemoglobin VBG pH Oxyhemoglobin Sodium Potassium Chloride Carbon Dioxide 9 L* BUN 45 H Creatinine 1.7 H Glucose 1155 H* POC Glucose Lactic Acid Calcium 7.9 L Phosphorus 10.90 H D 5.30 H D Magnesium 3.10 H 2.90 H Iron TIBC Direct Bilirubin AST ALT Alkaline Phosphatase Total Creatine Kinase CK-MB (CK-2) C-Reactive Protein Total Protein Albumin Vitamin B12 Salicylates Acetaminophen Miscellaneous Test Crossmatch 03/30/19 03/30/19 03/30/19 03:15 03:30 04:23 WBC 18.0 H RBC 2.31 L Hgb 7.3 L Hct 23.8 L D MCV 103 H MCH MCHC RDW 17.1 H Plt Count [place] % (Auto) Lymph # Seg Neuts % (Manual) 79.0 H Lymphocytes % (Manual) Nucleated RBC % Seg Neutrophils # Man 14.2 H Lymphocytes # (Manual) Monocytes # (Manual) PT INR APTT D-Dimer POC ABG pH 7.251 L ABG pH POC ABG pCO2 POC ABG pO2 156 H ABG pO2 ABG HCO3 ABG O2 Saturation ABG Base Excess ABG Hemoglobin VBG pH Oxyhemoglobin Sodium Potassium Chloride Carbon Dioxide BUN Creatinine Glucose POC Glucose Lactic Acid Calcium Phosphorus Magnesium Iron TIBC Direct Bilirubin AST ALT Alkaline Phosphatase Total Creatine Kinase CK-MB (CK-2) C-Reactive Protein Total Protein Albumin Vitamin B12 Salicylates Acetaminophen Miscellaneous Test Crossmatch See Detail 03/30/19 03/30/19 03/30/19 05:26 05:26 10:38 WBC RBC Hgb Hct MCV MCH MCHC RDW Plt Count [place] % (Auto) Lymph # Seg Neuts % (Manual) Lymphocytes % (Manual) Nucleated RBC % Seg Neutrophils # Man Lymphocytes # (Manual) Monocytes # (Manual) PT INR APTT D-Dimer POC ABG pH ABG pH POC ABG pCO2 POC ABG pO2 ABG pO2 ABG HCO3 ABG O2 Saturation ABG Base Excess ABG Hemoglobin VBG pH Oxyhemoglobin Sodium 158 H D Potassium 3.5 L Chloride 109.3 H Carbon Dioxide 19 L D BUN 40 H Creatinine 1.5 H Glucose 760 H* POC Glucose 380 H Lactic Acid Calcium 7.3 L Phosphorus Magnesium 2.60 H Iron TIBC Direct Bilirubin AST 95704 H ALT 2156 H Alkaline Phosphatase 271 H Total Creatine Kinase 2465 H CK-MB (CK-2) 52.7 H C-Reactive Protein Total Protein 4.5 L Albumin 2.4 L Vitamin B12 Salicylates Acetaminophen Miscellaneous Test Crossmatch 03/30/19 03/30/19 03/30/19 11:08 12:25 12:57 WBC RBC Hgb Hct MCV MCH MCHC RDW Plt Count [place] % (Auto) Lymph # Seg Neuts % (Manual) Lymphocytes % (Manual) Nucleated RBC % Seg Neutrophils # Man Lymphocytes # (Manual) Monocytes # (Manual) PT INR APTT D-Dimer POC ABG pH ABG pH POC ABG pCO2 POC ABG pO2 ABG pO2 ABG HCO3 ABG O2 Saturation ABG Base Excess ABG Hemoglobin VBG pH Oxyhemoglobin Sodium 156 H Potassium 3.2 L Chloride 116.4 H Carbon Dioxide 21 L BUN 37 H Creatinine Glucose 162 H POC Glucose 263 H 196 H Lactic Acid Calcium 7.2 L Phosphorus Magnesium Iron TIBC Direct Bilirubin AST ALT Alkaline Phosphatase Total Creatine Kinase CK-MB (CK-2) C-Reactive Protein Total Protein Albumin Vitamin B12 Salicylates Acetaminophen Miscellaneous Test Crossmatch 03/30/19 03/30/19 03/30/19 12:57 12:57 12:57 WBC RBC Hgb Hct MCV MCH MCHC RDW Plt Count [place] % (Auto) Lymph # Seg Neuts % (Manual) Lymphocytes % (Manual) Nucleated RBC % Seg Neutrophils # Man Lymphocytes # (Manual) Monocytes # (Manual) PT 21.0 H INR 1.86 H APTT D-Dimer POC ABG pH ABG pH POC ABG pCO2 POC ABG pO2 ABG pO2 ABG HCO3 ABG O2 Saturation ABG Base Excess ABG Hemoglobin VBG pH Oxyhemoglobin Sodium Potassium Chloride Carbon Dioxide BUN Creatinine Glucose POC Glucose Lactic Acid 9.00 H* Calcium Phosphorus Magnesium Iron TIBC Direct Bilirubin AST ALT Alkaline Phosphatase Total Creatine Kinase CK-MB (CK-2) C-Reactive Protein 2.40 H Total Protein Albumin Vitamin B12 Salicylates Acetaminophen Miscellaneous Test Crossmatch 03/30/19 03/30/19 03/30/19 13:23 14:00 14:47 WBC RBC Hgb Hct MCV MCH MCHC RDW Plt Count [place] % (Auto) Lymph # Seg Neuts % (Manual) Lymphocytes % (Manual) Nucleated RBC % Seg Neutrophils # Man Lymphocytes # (Manual) Monocytes # (Manual) PT INR APTT D-Dimer POC ABG pH ABG pH POC ABG pCO2 POC ABG pO2 ABG pO2 ABG HCO3 ABG O2 Saturation ABG Base Excess ABG Hemoglobin VBG pH Oxyhemoglobin Sodium Potassium Chloride Carbon Dioxide BUN Creatinine Glucose POC Glucose 176 H 245 H Lactic Acid Calcium Phosphorus Magnesium Iron TIBC Direct Bilirubin AST ALT Alkaline Phosphatase Total Creatine Kinase CK-MB (CK-2) C-Reactive Protein Total Protein Albumin Vitamin B12 Salicylates Acetaminophen Miscellaneous Test Flexitest 1 H Crossmatch 03/30/19 03/30/19 03/30/19 16:11 17:11 17:46 WBC RBC Hgb Hct MCV MCH MCHC RDW Plt Count [place] % (Auto) Lymph # Seg Neuts % (Manual) Lymphocytes % (Manual) Nucleated RBC % Seg Neutrophils # Man Lymphocytes # (Manual) Monocytes # (Manual) PT INR APTT D-Dimer POC ABG pH ABG pH POC ABG pCO2 POC ABG pO2 ABG pO2 ABG HCO3 ABG O2 Saturation ABG Base Excess ABG Hemoglobin VBG pH Oxyhemoglobin Sodium Potassium Chloride Carbon Dioxide BUN Creatinine Glucose POC Glucose 181 H 167 H 125 H Lactic Acid Calcium Phosphorus Magnesium Iron TIBC Direct Bilirubin AST ALT Alkaline Phosphatase Total Creatine Kinase CK-MB (CK-2) C-Reactive Protein Total Protein Albumin Vitamin B12 Salicylates Acetaminophen Miscellaneous Test Crossmatch 03/30/19 03/30/19 03/30/19 18:59 21:31 22:19 WBC RBC Hgb Hct MCV MCH MCHC RDW Plt Count [place] % (Auto) Lymph # Seg Neuts % (Manual) Lymphocytes % (Manual) Nucleated RBC % Seg Neutrophils # Man Lymphocytes # (Manual) Monocytes # (Manual) PT INR APTT D-Dimer POC ABG pH ABG pH POC ABG pCO2 POC ABG pO2 ABG pO2 ABG HCO3 ABG O2 Saturation ABG Base Excess ABG Hemoglobin VBG pH Oxyhemoglobin Sodium Potassium Chloride Carbon Dioxide BUN Creatinine Glucose POC Glucose 140 H 166 H 115 H Lactic Acid Calcium Phosphorus Magnesium Iron TIBC Direct Bilirubin AST ALT Alkaline Phosphatase Total Creatine Kinase CK-MB (CK-2) C-Reactive Protein Total Protein Albumin Vitamin B12 Salicylates Acetaminophen Miscellaneous Test Crossmatch 03/30/19 03/30/19 03/30/19 23:13 Unknown Unknown WBC RBC Hgb Hct MCV MCH MCHC RDW Plt Count [place] % (Auto) Lymph # Seg Neuts % (Manual) Lymphocytes % (Manual) Nucleated RBC % Seg Neutrophils # Man Lymphocytes # (Manual) Monocytes # (Manual) PT INR APTT D-Dimer POC ABG pH ABG pH POC ABG pCO2 POC ABG pO2 ABG pO2 47.8 L ABG HCO3 18.8 L ABG O2 Saturation 83.8 L ABG Base Excess -5.4 L ABG Hemoglobin 6.8 L VBG pH Oxyhemoglobin 81.8 L Sodium 157 H Potassium 3.3 L Chloride 117.9 H Carbon Dioxide 20 L BUN 36 H Creatinine Glucose 150 H POC Glucose 112 H Lactic Acid Calcium 7.2 L Phosphorus Magnesium Iron TIBC Direct Bilirubin AST ALT Alkaline Phosphatase Total Creatine Kinase CK-MB (CK-2) C-Reactive Protein Total Protein Albumin Vitamin B12 Salicylates Acetaminophen Miscellaneous Test Crossmatch 03/30/19 03/30/19 03/31/19 Unknown Unknown 00:03 WBC RBC Hgb Hct MCV MCH MCHC RDW Plt Count [place] % (Auto) Lymph # Seg Neuts % (Manual) Lymphocytes % (Manual) Nucleated RBC % Seg Neutrophils # Man Lymphocytes # (Manual) Monocytes # (Manual) PT INR APTT D-Dimer POC ABG pH ABG pH POC ABG pCO2 POC ABG pO2 ABG pO2 ABG HCO3 ABG O2 Saturation ABG Base Excess ABG Hemoglobin VBG pH Oxyhemoglobin Sodium Potassium Chloride Carbon Dioxide BUN Creatinine Glucose POC Glucose 188 H Lactic Acid Calcium Phosphorus Magnesium Iron TIBC Direct Bilirubin AST ALT Alkaline Phosphatase Total Creatine Kinase CK-MB (CK-2) C-Reactive Protein Total Protein Albumin Vitamin B12 Salicylates 0.8 L Acetaminophen < 5.0 L Miscellaneous Test Crossmatch 03/31/19 03/31/19 03/31/19 01:18 03:07 03:50 WBC RBC Hgb Hct MCV MCH MCHC RDW Plt Count [place] % (Auto) Lymph # Seg Neuts % (Manual) Lymphocytes % (Manual) Nucleated RBC % Seg Neutrophils # Man Lymphocytes # (Manual) Monocytes # (Manual) PT INR APTT D-Dimer POC ABG pH ABG pH 7.525 H POC ABG pCO2 POC ABG pO2 ABG pO2 178.0 H ABG HCO3 19.5 L ABG O2 Saturation 99.2 H ABG Base Excess -3.1 L ABG Hemoglobin 5.8 L VBG pH Oxyhemoglobin Sodium Potassium Chloride Carbon Dioxide BUN Creatinine Glucose POC Glucose 114 H 107 H Lactic Acid Calcium Phosphorus Magnesium Iron TIBC Direct Bilirubin AST ALT Alkaline Phosphatase Total Creatine Kinase CK-MB (CK-2) C-Reactive Protein Total Protein Albumin Vitamin B12 Salicylates Acetaminophen Miscellaneous Test Crossmatch 03/31/19 03/31/19 03/31/19 03:51 03:51 04:05 WBC RBC 1.89 L Hgb 6.1 L Hct 18.2 L* MCV MCH MCHC RDW 17.7 H Plt Count 89 L [place] % (Auto) Lymph # Seg Neuts % (Manual) 86.0 H Lymphocytes % (Manual) 10.0 L Nucleated RBC % 1.0 H Seg Neutrophils # Man Lymphocytes # (Manual) 0.7 L Monocytes # (Manual) PT INR APTT D-Dimer POC ABG pH ABG pH POC ABG pCO2 POC ABG pO2 ABG pO2 ABG HCO3 ABG O2 Saturation ABG Base Excess ABG Hemoglobin VBG pH Oxyhemoglobin Sodium 151 H Potassium 3.2 L Chloride 119.4 H Carbon Dioxide 17 L BUN 35 H Creatinine Glucose 139 H POC Glucose 153 H Lactic Acid Calcium 7.1 L Phosphorus Magnesium Iron TIBC Direct Bilirubin AST ALT Alkaline Phosphatase Total Creatine Kinase CK-MB (CK-2) C-Reactive Protein Total Protein Albumin Vitamin B12 Salicylates Acetaminophen Miscellaneous Test Crossmatch 03/31/19 03/31/19 03/31/19 05:05 05:35 06:23 WBC RBC Hgb Hct MCV MCH MCHC RDW Plt Count [place] % (Auto) Lymph # Seg Neuts % (Manual) Lymphocytes % (Manual) Nucleated RBC % Seg Neutrophils # Man Lymphocytes # (Manual) Monocytes # (Manual) PT INR APTT D-Dimer POC ABG pH ABG pH POC ABG pCO2 POC ABG pO2 ABG pO2 ABG HCO3 ABG O2 Saturation ABG Base Excess ABG Hemoglobin VBG pH Oxyhemoglobin Sodium Potassium Chloride Carbon Dioxide BUN Creatinine Glucose POC Glucose 176 H 133 H Lactic Acid 3.20 H* Calcium Phosphorus Magnesium Iron TIBC Direct Bilirubin AST ALT Alkaline Phosphatase Total Creatine Kinase CK-MB (CK-2) C-Reactive Protein Total Protein Albumin Vitamin B12 Salicylates Acetaminophen Miscellaneous Test Crossmatch 03/31/19 03/31/19 03/31/19 07:50 07:51 08:20 WBC RBC Hgb Hct MCV MCH MCHC RDW Plt Count [place] % (Auto) Lymph # Seg Neuts % (Manual) Lymphocytes % (Manual) Nucleated RBC % Seg Neutrophils # Man Lymphocytes # (Manual) Monocytes # (Manual) PT INR APTT D-Dimer POC ABG pH ABG pH POC ABG pCO2 POC ABG pO2 ABG pO2 ABG HCO3 ABG O2 Saturation ABG Base Excess ABG Hemoglobin VBG pH Oxyhemoglobin Sodium Potassium Chloride Carbon Dioxide BUN Creatinine Glucose POC Glucose 135 H Lactic Acid 3.30 H* Calcium Phosphorus Magnesium Iron 26 L TIBC 193 L Direct Bilirubin AST ALT Alkaline Phosphatase Total Creatine Kinase CK-MB (CK-2) C-Reactive Protein Total Protein Albumin Vitamin B12 Salicylates Acetaminophen Miscellaneous Test Crossmatch 03/31/19 03/31/19 03/31/19 08:20 08:20 09:06 WBC RBC Hgb Hct MCV MCH MCHC RDW Plt Count [place] % (Auto) Lymph # Seg Neuts % (Manual) Lymphocytes % (Manual) Nucleated RBC % Seg Neutrophils # Man Lymphocytes # (Manual) Monocytes # (Manual) PT INR APTT D-Dimer POC ABG pH ABG pH POC ABG pCO2 POC ABG pO2 ABG pO2 ABG HCO3 ABG O2 Saturation ABG Base Excess ABG Hemoglobin VBG pH Oxyhemoglobin Sodium 153 H Potassium 3.0 L Chloride 118.9 H Carbon Dioxide 18 L BUN 37 H Creatinine Glucose 132 H POC Glucose 145 H Lactic Acid Calcium 7.1 L Phosphorus Magnesium Iron TIBC Direct Bilirubin AST ALT Alkaline Phosphatase Total Creatine Kinase CK-MB (CK-2) C-Reactive Protein Total Protein Albumin Vitamin B12 > 2000 H Salicylates Acetaminophen Miscellaneous Test Crossmatch 03/31/19 03/31/19 03/31/19 10:47 11:49 13:04 WBC RBC Hgb Hct MCV MCH MCHC RDW Plt Count [place] % (Auto) Lymph # Seg Neuts % (Manual) Lymphocytes % (Manual) Nucleated RBC % Seg Neutrophils # Man Lymphocytes # (Manual) Monocytes # (Manual) PT INR APTT D-Dimer POC ABG pH ABG pH POC ABG pCO2 POC ABG pO2 ABG pO2 ABG HCO3 ABG O2 Saturation ABG Base Excess ABG Hemoglobin VBG pH Oxyhemoglobin Sodium Potassium Chloride Carbon Dioxide BUN Creatinine Glucose POC Glucose 153 H 174 H 214 H Lactic Acid Calcium Phosphorus Magnesium Iron TIBC Direct Bilirubin AST ALT Alkaline Phosphatase Total Creatine Kinase CK-MB (CK-2) C-Reactive Protein Total Protein Albumin Vitamin B12 Salicylates Acetaminophen Miscellaneous Test Crossmatch 03/31/19 03/31/19 03/31/19 13:42 15:08 16:08 WBC RBC Hgb Hct MCV MCH MCHC RDW Plt Count [place] % (Auto) Lymph # Seg Neuts % (Manual) Lymphocytes % (Manual) Nucleated RBC % Seg Neutrophils # Man Lymphocytes # (Manual) Monocytes # (Manual) PT INR APTT D-Dimer POC ABG pH ABG pH POC ABG pCO2 POC ABG pO2 ABG pO2 ABG HCO3 ABG O2 Saturation ABG Base Excess ABG Hemoglobin VBG pH Oxyhemoglobin Sodium Potassium Chloride Carbon Dioxide BUN Creatinine Glucose POC Glucose 186 H 136 H 150 H Lactic Acid Calcium Phosphorus Magnesium Iron TIBC Direct Bilirubin AST ALT Alkaline Phosphatase Total Creatine Kinase CK-MB (CK-2) C-Reactive Protein Total Protein Albumin Vitamin B12 Salicylates Acetaminophen Miscellaneous Test Crossmatch 03/31/19 03/31/19 03/31/19 17:11 17:30 17:30 WBC RBC Hgb 7.7 L Hct 23.0 L MCV MCH MCHC RDW Plt Count [place] % (Auto) Lymph # Seg Neuts % (Manual) Lymphocytes % (Manual) Nucleated RBC % Seg Neutrophils # Man Lymphocytes # (Manual) Monocytes # (Manual) PT INR APTT D-Dimer POC ABG pH ABG pH POC ABG pCO2 POC ABG pO2 ABG pO2 ABG HCO3 ABG O2 Saturation ABG Base Excess ABG Hemoglobin VBG pH Oxyhemoglobin Sodium 153 H Potassium 3.5 L Chloride 119.3 H Carbon Dioxide 20 L BUN 34 H Creatinine Glucose 162 H POC Glucose 140 H Lactic Acid Calcium 7.6 L Phosphorus Magnesium Iron TIBC Direct Bilirubin AST ALT Alkaline Phosphatase Total Creatine Kinase CK-MB (CK-2) C-Reactive Protein Total Protein Albumin Vitamin B12 Salicylates Acetaminophen Miscellaneous Test Crossmatch 03/31/19 03/31/19 03/31/19 17:59 18:58 20:28 WBC RBC Hgb Hct MCV MCH MCHC RDW Plt Count [place] % (Auto) Lymph # Seg Neuts % (Manual) Lymphocytes % (Manual) Nucleated RBC % Seg Neutrophils # Man Lymphocytes # (Manual) Monocytes # (Manual) PT INR APTT D-Dimer POC ABG pH ABG pH POC ABG pCO2 POC ABG pO2 ABG pO2 ABG HCO3 ABG O2 Saturation ABG Base Excess ABG Hemoglobin VBG pH Oxyhemoglobin Sodium Potassium Chloride Carbon Dioxide BUN Creatinine Glucose POC Glucose 156 H 152 H 138 H Lactic Acid Calcium Phosphorus Magnesium Iron TIBC Direct Bilirubin AST ALT Alkaline Phosphatase Total Creatine Kinase CK-MB (CK-2) C-Reactive Protein Total Protein Albumin Vitamin B12 Salicylates Acetaminophen Miscellaneous Test Crossmatch 03/31/19 03/31/19 03/31/19 21:09 22:15 23:10 WBC RBC Hgb Hct MCV MCH MCHC RDW Plt Count [place] % (Auto) Lymph # Seg Neuts % (Manual) Lymphocytes % (Manual) Nucleated RBC % Seg Neutrophils # Man Lymphocytes # (Manual) Monocytes # (Manual) PT INR APTT D-Dimer POC ABG pH ABG pH POC ABG pCO2 POC ABG pO2 ABG pO2 ABG HCO3 ABG O2 Saturation ABG Base Excess ABG Hemoglobin VBG pH Oxyhemoglobin Sodium Potassium Chloride Carbon Dioxide BUN Creatinine Glucose POC Glucose 136 H 137 H 148 H Lactic Acid Calcium Phosphorus Magnesium Iron TIBC Direct Bilirubin AST ALT Alkaline Phosphatase Total Creatine Kinase CK-MB (CK-2) C-Reactive Protein Total Protein Albumin Vitamin B12 Salicylates Acetaminophen Miscellaneous Test Crossmatch 04/01/19 04/01/19 04/01/19 00:05 01:17 02:11 WBC RBC Hgb Hct MCV MCH MCHC RDW Plt Count [place] % (Auto) Lymph # Seg Neuts % (Manual) Lymphocytes % (Manual) Nucleated RBC % Seg Neutrophils # Man Lymphocytes # (Manual) Monocytes # (Manual) PT INR APTT D-Dimer POC ABG pH ABG pH POC ABG pCO2 POC ABG pO2 ABG pO2 ABG HCO3 ABG O2 Saturation ABG Base Excess ABG Hemoglobin VBG pH Oxyhemoglobin Sodium Potassium Chloride Carbon Dioxide BUN Creatinine Glucose POC Glucose 143 H 151 H 155 H Lactic Acid Calcium Phosphorus Magnesium Iron TIBC Direct Bilirubin AST ALT Alkaline Phosphatase Total Creatine Kinase CK-MB (CK-2) C-Reactive Protein Total Protein Albumin Vitamin B12 Salicylates Acetaminophen Miscellaneous Test Crossmatch 04/01/19 04/01/19 04/01/19 03:12 04:03 04:16 WBC RBC Hgb Hct MCV MCH MCHC RDW Plt Count [place] % (Auto) Lymph # Seg Neuts % (Manual) Lymphocytes % (Manual) Nucleated RBC % Seg Neutrophils # Man Lymphocytes # (Manual) Monocytes # (Manual) PT INR APTT D-Dimer POC ABG pH ABG pH POC ABG pCO2 POC ABG pO2 ABG pO2 ABG HCO3 ABG O2 Saturation ABG Base Excess ABG Hemoglobin VBG pH Oxyhemoglobin Sodium Potassium Chloride Carbon Dioxide BUN Creatinine Glucose POC Glucose 140 H 143 H 142 H Lactic Acid Calcium Phosphorus Magnesium Iron TIBC Direct Bilirubin AST ALT Alkaline Phosphatase Total Creatine Kinase CK-MB (CK-2) C-Reactive Protein Total Protein Albumin Vitamin B12 Salicylates Acetaminophen Miscellaneous Test Crossmatch 04/01/19 04/01/19 04/01/19 05:01 05:01 05:08 WBC RBC 2.05 L Hgb 6.8 L Hct 20.5 L MCV 100 H MCH 33 H MCHC RDW 17.7 H Plt Count 53 L [place] % (Auto) Lymph # Seg Neuts % (Manual) 71.0 H Lymphocytes % (Manual) Nucleated RBC % Seg Neutrophils # Man Lymphocytes # (Manual) Monocytes # (Manual) PT INR APTT D-Dimer POC ABG pH ABG pH POC ABG pCO2 POC ABG pO2 ABG pO2 ABG HCO3 ABG O2 Saturation ABG Base Excess ABG Hemoglobin VBG pH Oxyhemoglobin Sodium Potassium Chloride Carbon Dioxide BUN Creatinine Glucose POC Glucose 119 H Lactic Acid Calcium Phosphorus Magnesium Iron TIBC Direct Bilirubin 0.3 H AST 4601 H ALT 1542 H Alkaline Phosphatase 185 H Total Creatine Kinase CK-MB (CK-2) C-Reactive Protein Total Protein 3.8 L Albumin 1.6 L Vitamin B12 Salicylates Acetaminophen Miscellaneous Test Crossmatch 04/01/19 04/01/19 04/01/19 05:23 06:37 08:15 WBC RBC Hgb Hct MCV MCH MCHC RDW Plt Count [place] % (Auto) Lymph # Seg Neuts % (Manual) Lymphocytes % (Manual) Nucleated RBC % Seg Neutrophils # Man Lymphocytes # (Manual) Monocytes # (Manual) PT INR APTT D-Dimer POC ABG pH ABG pH POC ABG pCO2 POC ABG pO2 ABG pO2 ABG HCO3 ABG O2 Saturation ABG Base Excess ABG Hemoglobin VBG pH Oxyhemoglobin Sodium Potassium Chloride Carbon Dioxide BUN Creatinine Glucose POC Glucose 115 H 124 H 138 H Lactic Acid Calcium Phosphorus Magnesium Iron TIBC Direct Bilirubin AST ALT Alkaline Phosphatase Total Creatine Kinase CK-MB (CK-2) C-Reactive Protein Total Protein Albumin Vitamin B12 Salicylates Acetaminophen Miscellaneous Test Crossmatch 04/01/19 04/01/19 04/01/19 09:50 10:10 10:31 WBC RBC Hgb 6.5 L Hct 19.2 L* MCV MCH MCHC RDW Plt Count [place] % (Auto) Lymph # Seg Neuts % (Manual) Lymphocytes % (Manual) Nucleated RBC % Seg Neutrophils # Man Lymphocytes # (Manual) Monocytes # (Manual) PT INR APTT D-Dimer POC ABG pH ABG pH POC ABG pCO2 POC ABG pO2 ABG pO2 ABG HCO3 ABG O2 Saturation ABG Base Excess ABG Hemoglobin VBG pH Oxyhemoglobin Sodium 149 H Potassium 3.5 L Chloride 119.9 H Carbon Dioxide 21 L BUN 33 H Creatinine 0.5 L Glucose 142 H POC Glucose 185 H Lactic Acid Calcium 7.3 L Phosphorus Magnesium Iron TIBC Direct Bilirubin AST 3686 H ALT 1440 H Alkaline Phosphatase 185 H Total Creatine Kinase CK-MB (CK-2) C-Reactive Protein Total Protein 3.7 L Albumin 1.8 L Vitamin B12 Salicylates Acetaminophen Miscellaneous Test Crossmatch 04/01/19 04/01/19 04/01/19 11:35 13:05 14:35 WBC RBC Hgb Hct MCV MCH MCHC RDW Plt Count [place] % (Auto) Lymph # Seg Neuts % (Manual) Lymphocytes % (Manual) Nucleated RBC % Seg Neutrophils # Man Lymphocytes # (Manual) Monocytes # (Manual) PT INR APTT D-Dimer POC ABG pH ABG pH POC ABG pCO2 POC ABG pO2 ABG pO2 ABG HCO3 ABG O2 Saturation ABG Base Excess ABG Hemoglobin VBG pH Oxyhemoglobin Sodium Potassium Chloride Carbon Dioxide BUN Creatinine Glucose POC Glucose 201 H 169 H 134 H Lactic Acid Calcium Phosphorus Magnesium Iron TIBC Direct Bilirubin AST ALT Alkaline Phosphatase Total Creatine Kinase CK-MB (CK-2) C-Reactive Protein Total Protein Albumin Vitamin B12 Salicylates Acetaminophen Miscellaneous Test Crossmatch 04/01/19 04/01/19 04/01/19 17:13 17:14 18:30 WBC RBC Hgb Hct MCV MCH MCHC RDW Plt Count [place] % (Auto) Lymph # Seg Neuts % (Manual) Lymphocytes % (Manual) Nucleated RBC % Seg Neutrophils # Man Lymphocytes # (Manual) Monocytes # (Manual) PT INR APTT D-Dimer 5203.68 H POC ABG pH ABG pH POC ABG pCO2 POC ABG pO2 ABG pO2 ABG HCO3 ABG O2 Saturation ABG Base Excess ABG Hemoglobin VBG pH Oxyhemoglobin Sodium Potassium Chloride Carbon Dioxide BUN Creatinine Glucose POC Glucose 69 L 128 H Lactic Acid Calcium Phosphorus Magnesium Iron TIBC Direct Bilirubin AST ALT Alkaline Phosphatase Total Creatine Kinase CK-MB (CK-2) C-Reactive Protein Total Protein Albumin Vitamin B12 Salicylates Acetaminophen Miscellaneous Test Crossmatch 04/01/19 04/01/19 04/02/19 22:50 Unknown 03:40 WBC RBC Hgb Hct MCV MCH MCHC RDW Plt Count [place] % (Auto) Lymph # Seg Neuts % (Manual) Lymphocytes % (Manual) Nucleated RBC % Seg Neutrophils # Man Lymphocytes # (Manual) Monocytes # (Manual) PT INR APTT D-Dimer POC ABG pH ABG pH POC ABG pCO2 POC ABG pO2 ABG pO2 78.3 L 142.8 H ABG HCO3 15.5 L ABG O2 Saturation ABG Base Excess -3.5 L -8.2 L ABG Hemoglobin 6.8 L 8.2 L VBG pH Oxyhemoglobin 94.3 L Sodium Potassium Chloride Carbon Dioxide BUN Creatinine Glucose POC Glucose 342 H Lactic Acid Calcium Phosphorus Magnesium Iron TIBC Direct Bilirubin AST ALT Alkaline Phosphatase Total Creatine Kinase CK-MB (CK-2) C-Reactive Protein Total Protein Albumin Vitamin B12 Salicylates Acetaminophen Miscellaneous Test Crossmatch 04/02/19 04/02/19 04/02/19 03:49 06:50 07:48 WBC RBC 2.65 L Hgb 8.6 L Hct 25.1 L MCV MCH MCHC RDW 17.6 H Plt Count 48 L [place] % (Auto) Lymph # Seg Neuts % (Manual) Lymphocytes % (Manual) Nucleated RBC % Seg Neutrophils # Man Lymphocytes # (Manual) Monocytes # (Manual) PT INR APTT D-Dimer POC ABG pH ABG pH POC ABG pCO2 POC ABG pO2 ABG pO2 ABG HCO3 ABG O2 Saturation ABG Base Excess ABG Hemoglobin VBG pH Oxyhemoglobin Sodium Potassium Chloride Carbon Dioxide BUN Creatinine Glucose POC Glucose 247 H 200 H Lactic Acid Calcium Phosphorus Magnesium Iron TIBC Direct Bilirubin AST ALT Alkaline Phosphatase Total Creatine Kinase CK-MB (CK-2) C-Reactive Protein Total Protein Albumin Vitamin B12 Salicylates Acetaminophen Miscellaneous Test Crossmatch 04/02/19 04/02/19 04/02/19 07:48 11:18 14:07 WBC RBC Hgb Hct MCV MCH MCHC RDW Plt Count [place] % (Auto) Lymph # Seg Neuts % (Manual) Lymphocytes % (Manual) Nucleated RBC % Seg Neutrophils # Man Lymphocytes # (Manual) Monocytes # (Manual) PT INR APTT D-Dimer POC ABG pH ABG pH POC ABG pCO2 POC ABG pO2 ABG pO2 ABG HCO3 ABG O2 Saturation ABG Base Excess ABG Hemoglobin VBG pH Oxyhemoglobin Sodium Potassium 3.5 L Chloride 115.7 H Carbon Dioxide 19 L BUN 29 H Creatinine 0.5 L Glucose 159 H POC Glucose 154 H 149 H Lactic Acid Calcium 7.5 L Phosphorus Magnesium Iron TIBC Direct Bilirubin AST 1418 H ALT 1134 H Alkaline Phosphatase 242 H Total Creatine Kinase CK-MB (CK-2) C-Reactive Protein Total Protein 4.2 L Albumin 2.1 L Vitamin B12 Salicylates Acetaminophen Miscellaneous Test Crossmatch 04/02/19 04/02/19 04/02/19 18:09 19:46 23:05 WBC RBC Hgb Hct MCV MCH MCHC RDW Plt Count [place] % (Auto) Lymph # Seg Neuts % (Manual) Lymphocytes % (Manual) Nucleated RBC % Seg Neutrophils # Man Lymphocytes # (Manual) Monocytes # (Manual) PT INR APTT D-Dimer POC ABG pH ABG pH POC ABG pCO2 POC ABG pO2 ABG pO2 ABG HCO3 ABG O2 Saturation ABG Base Excess ABG Hemoglobin VBG pH Oxyhemoglobin Sodium Potassium Chloride Carbon Dioxide BUN Creatinine Glucose POC Glucose 188 H 209 H 247 H Lactic Acid Calcium Phosphorus Magnesium Iron TIBC Direct Bilirubin AST ALT Alkaline Phosphatase Total Creatine Kinase CK-MB (CK-2) C-Reactive Protein Total Protein Albumin Vitamin B12 Salicylates Acetaminophen Miscellaneous Test Crossmatch 04/03/19 04/03/19 04/03/19 02:58 03:40 03:40 WBC RBC 2.87 L Hgb 9.3 L Hct 27.0 L MCV MCH MCHC RDW 17.2 H Plt Count 65 L [place] % (Auto) 9.8 H Lymph # 1.1 L Seg Neuts % (Manual) Lymphocytes % (Manual) Nucleated RBC % Seg Neutrophils # Man Lymphocytes # (Manual) Monocytes # (Manual) PT INR APTT D-Dimer POC ABG pH ABG pH POC ABG pCO2 POC ABG pO2 ABG pO2 ABG HCO3 ABG O2 Saturation ABG Base Excess ABG Hemoglobin VBG pH Oxyhemoglobin Sodium 147 H Potassium 3.5 L Chloride 116.7 H Carbon Dioxide 18 L BUN Creatinine 0.4 L Glucose 150 H POC Glucose 166 H Lactic Acid Calcium 8.1 L Phosphorus 2.20 L Magnesium Iron TIBC Direct Bilirubin AST 594 H ALT 861 H Alkaline Phosphatase 299 H Total Creatine Kinase CK-MB (CK-2) C-Reactive Protein Total Protein 4.4 L Albumin 2.1 L Vitamin B12 Salicylates Acetaminophen Miscellaneous Test Crossmatch 04/03/19 04/03/19 04/03/19 05:35 07:02 08:23 WBC RBC Hgb Hct MCV MCH MCHC RDW Plt Count [place] % (Auto) Lymph # Seg Neuts % (Manual) Lymphocytes % (Manual) Nucleated RBC % Seg Neutrophils # Man Lymphocytes # (Manual) Monocytes # (Manual) PT INR APTT D-Dimer POC ABG pH ABG pH POC ABG pCO2 POC ABG pO2 ABG pO2 97.7 H ABG HCO3 19.3 L ABG O2 Saturation ABG Base Excess -5.0 L ABG Hemoglobin 8.0 L VBG pH Oxyhemoglobin Sodium Potassium Chloride Carbon Dioxide BUN Creatinine Glucose POC Glucose 135 H 132 H Lactic Acid Calcium Phosphorus Magnesium Iron TIBC Direct Bilirubin AST ALT Alkaline Phosphatase Total Creatine Kinase CK-MB (CK-2) C-Reactive Protein Total Protein Albumin Vitamin B12 Salicylates Acetaminophen Miscellaneous Test Crossmatch 04/03/19 04/03/19 04/03/19 11:58 15:11 17:53 WBC RBC Hgb Hct MCV MCH MCHC RDW Plt Count [place] % (Auto) Lymph # Seg Neuts % (Manual) Lymphocytes % (Manual) Nucleated RBC % Seg Neutrophils # Man Lymphocytes # (Manual) Monocytes # (Manual) PT INR APTT D-Dimer POC ABG pH ABG pH POC ABG pCO2 POC ABG pO2 ABG pO2 ABG HCO3 ABG O2 Saturation ABG Base Excess ABG Hemoglobin VBG pH Oxyhemoglobin Sodium Potassium Chloride Carbon Dioxide BUN Creatinine Glucose POC Glucose 179 H 213 H 223 H Lactic Acid Calcium Phosphorus Magnesium Iron TIBC Direct Bilirubin AST ALT Alkaline Phosphatase Total Creatine Kinase CK-MB (CK-2) C-Reactive Protein Total Protein Albumin Vitamin B12 Salicylates Acetaminophen Miscellaneous Test Crossmatch 04/03/19 04/04/19 04/04/19 23:06 02:36 06:41 WBC RBC Hgb Hct MCV MCH MCHC RDW Plt Count [place] % (Auto) Lymph # Seg Neuts % (Manual) Lymphocytes % (Manual) Nucleated RBC % Seg Neutrophils # Man Lymphocytes # (Manual) Monocytes # (Manual) PT INR APTT D-Dimer POC ABG pH ABG pH POC ABG pCO2 POC ABG pO2 ABG pO2 ABG HCO3 ABG O2 Saturation ABG Base Excess ABG Hemoglobin VBG pH Oxyhemoglobin Sodium Potassium Chloride Carbon Dioxide BUN Creatinine Glucose POC Glucose 189 H 157 H 131 H Lactic Acid Calcium Phosphorus Magnesium Iron TIBC Direct Bilirubin AST ALT Alkaline Phosphatase Total Creatine Kinase CK-MB (CK-2) C-Reactive Protein Total Protein Albumin Vitamin B12 Salicylates Acetaminophen Miscellaneous Test Crossmatch 04/04/19 04/04/19 04/04/19 11:42 15:45 18:21 WBC RBC Hgb Hct MCV MCH MCHC RDW Plt Count [place] % (Auto) Lymph # Seg Neuts % (Manual) Lymphocytes % (Manual) Nucleated RBC % Seg Neutrophils # Man Lymphocytes # (Manual) Monocytes # (Manual) PT INR APTT D-Dimer POC ABG pH ABG pH POC ABG pCO2 POC ABG pO2 ABG pO2 ABG HCO3 ABG O2 Saturation ABG Base Excess ABG Hemoglobin VBG pH Oxyhemoglobin Sodium Potassium Chloride Carbon Dioxide BUN Creatinine Glucose POC Glucose 233 H 236 H 255 H Lactic Acid Calcium Phosphorus Magnesium Iron TIBC Direct Bilirubin AST ALT Alkaline Phosphatase Total Creatine Kinase CK-MB (CK-2) C-Reactive Protein Total Protein Albumin Vitamin B12 Salicylates Acetaminophen Miscellaneous Test Crossmatch 04/04/19 04/05/19 04/05/19 21:21 03:06 06:05 WBC RBC 2.68 L Hgb 8.5 L Hct 26.3 L MCV 98 H MCH MCHC RDW 17.4 H Plt Count [place] % (Auto) Lymph # Seg Neuts % (Manual) Lymphocytes % (Manual) Nucleated RBC % Seg Neutrophils # Man Lymphocytes # (Manual) Monocytes # (Manual) PT INR APTT D-Dimer POC ABG pH ABG pH POC ABG pCO2 POC ABG pO2 ABG pO2 ABG HCO3 ABG O2 Saturation ABG Base Excess ABG Hemoglobin VBG pH Oxyhemoglobin Sodium Potassium Chloride Carbon Dioxide BUN Creatinine Glucose POC Glucose 132 H 161 H Lactic Acid Calcium Phosphorus Magnesium Iron TIBC Direct Bilirubin AST ALT Alkaline Phosphatase Total Creatine Kinase CK-MB (CK-2) C-Reactive Protein Total Protein Albumin Vitamin B12 Salicylates Acetaminophen Miscellaneous Test Crossmatch 04/05/19 04/05/19 04/05/19 06:05 06:49 10:23 WBC RBC Hgb Hct MCV MCH MCHC RDW Plt Count [place] % (Auto) Lymph # Seg Neuts % (Manual) Lymphocytes % (Manual) Nucleated RBC % Seg Neutrophils # Man Lymphocytes # (Manual) Monocytes # (Manual) PT INR APTT D-Dimer POC ABG pH ABG pH POC ABG pCO2 POC ABG pO2 ABG pO2 ABG HCO3 ABG O2 Saturation ABG Base Excess ABG Hemoglobin VBG pH Oxyhemoglobin Sodium Potassium Chloride 112.5 H Carbon Dioxide BUN Creatinine 0.2 L Glucose 237 H POC Glucose 283 H 296 H Lactic Acid Calcium 7.9 L Phosphorus Magnesium Iron TIBC Direct Bilirubin AST ALT Alkaline Phosphatase Total Creatine Kinase CK-MB (CK-2) C-Reactive Protein Total Protein Albumin Vitamin B12 Salicylates Acetaminophen Miscellaneous Test Crossmatch 04/05/19 04/05/19 04/05/19 14:46 18:19 20:35 WBC RBC Hgb Hct MCV MCH MCHC RDW Plt Count [place] % (Auto) Lymph # Seg Neuts % (Manual) Lymphocytes % (Manual) Nucleated RBC % Seg Neutrophils # Man Lymphocytes # (Manual) Monocytes # (Manual) PT INR APTT D-Dimer POC ABG pH ABG pH POC ABG pCO2 POC ABG pO2 ABG pO2 ABG HCO3 ABG O2 Saturation ABG Base Excess ABG Hemoglobin VBG pH Oxyhemoglobin Sodium Potassium Chloride Carbon Dioxide BUN Creatinine Glucose POC Glucose 225 H 259 H 236 H Lactic Acid Calcium Phosphorus Magnesium Iron TIBC Direct Bilirubin AST ALT Alkaline Phosphatase Total Creatine Kinase CK-MB (CK-2) C-Reactive Protein Total Protein Albumin Vitamin B12 Salicylates Acetaminophen Miscellaneous Test Crossmatch 04/05/19 04/06/19 04/06/19 23:11 00:06 03:14 WBC RBC Hgb Hct MCV MCH MCHC RDW Plt Count [place] % (Auto) Lymph # Seg Neuts % (Manual) Lymphocytes % (Manual) Nucleated RBC % Seg Neutrophils # Man Lymphocytes # (Manual) Monocytes # (Manual) PT INR APTT D-Dimer 4526.86 H POC ABG pH ABG pH POC ABG pCO2 POC ABG pO2 ABG pO2 ABG HCO3 ABG O2 Saturation ABG Base Excess ABG Hemoglobin VBG pH Oxyhemoglobin Sodium Potassium Chloride Carbon Dioxide BUN Creatinine Glucose POC Glucose 205 H 228 H Lactic Acid Calcium Phosphorus Magnesium Iron TIBC Direct Bilirubin AST ALT Alkaline Phosphatase Total Creatine Kinase CK-MB (CK-2) C-Reactive Protein Total Protein Albumin Vitamin B12 Salicylates Acetaminophen Miscellaneous Test Crossmatch 04/06/19 04/06/19 04/06/19 05:20 05:20 07:57 WBC 15.1 H RBC 2.90 L Hgb 9.1 L Hct 28.0 L MCV MCH MCHC RDW 17.3 H Plt Count [place] % (Auto) Lymph # Seg Neuts % (Manual) Lymphocytes % (Manual) Nucleated RBC % Seg Neutrophils # Man Lymphocytes # (Manual) Monocytes # (Manual) PT INR APTT D-Dimer POC ABG pH ABG pH POC ABG pCO2 POC ABG pO2 ABG pO2 ABG HCO3 ABG O2 Saturation ABG Base Excess ABG Hemoglobin VBG pH Oxyhemoglobin Sodium Potassium Chloride Carbon Dioxide BUN Creatinine 0.2 L Glucose 161 H POC Glucose 191 H Lactic Acid Calcium 8.0 L Phosphorus Magnesium Iron TIBC Direct Bilirubin AST ALT Alkaline Phosphatase Total Creatine Kinase CK-MB (CK-2) C-Reactive Protein Total Protein Albumin Vitamin B12 Salicylates Acetaminophen Miscellaneous Test Crossmatch 04/06/19 04/06/19 04/06/19 12:09 18:24 22:07 WBC RBC Hgb Hct MCV MCH MCHC RDW Plt Count [place] % (Auto) Lymph # Seg Neuts % (Manual) Lymphocytes % (Manual) Nucleated RBC % Seg Neutrophils # Man Lymphocytes # (Manual) Monocytes # (Manual) PT INR APTT D-Dimer POC ABG pH ABG pH POC ABG pCO2 POC ABG pO2 ABG pO2 ABG HCO3 ABG O2 Saturation ABG Base Excess ABG Hemoglobin VBG pH Oxyhemoglobin Sodium Potassium Chloride Carbon Dioxide BUN Creatinine Glucose POC Glucose 143 H 161 H 140 H Lactic Acid Calcium Phosphorus Magnesium Iron TIBC Direct Bilirubin AST ALT Alkaline Phosphatase Total Creatine Kinase CK-MB (CK-2) C-Reactive Protein Total Protein Albumin Vitamin B12 Salicylates Acetaminophen Miscellaneous Test Crossmatch 04/07/19 04/07/19 04/07/19 03:00 04:30 04:30 WBC 13.0 H RBC 2.65 L Hgb 8.3 L Hct 25.5 L MCV MCH MCHC RDW 17.0 H Plt Count [place] % (Auto) Lymph # Seg Neuts % (Manual) Lymphocytes % (Manual) Nucleated RBC % Seg Neutrophils # Man Lymphocytes # (Manual) Monocytes # (Manual) PT INR APTT D-Dimer POC ABG pH ABG pH POC ABG pCO2 POC ABG pO2 ABG pO2 ABG HCO3 ABG O2 Saturation ABG Base Excess ABG Hemoglobin VBG pH Oxyhemoglobin Sodium Potassium Chloride Carbon Dioxide BUN Creatinine 0.2 L Glucose 208 H POC Glucose 224 H Lactic Acid Calcium 7.7 L Phosphorus Magnesium Iron TIBC Direct Bilirubin AST ALT Alkaline Phosphatase Total Creatine Kinase CK-MB (CK-2) C-Reactive Protein Total Protein Albumin Vitamin B12 Salicylates Acetaminophen Miscellaneous Test Crossmatch 04/07/19 04/07/19 04/07/19 05:47 08:27 10:33 WBC RBC Hgb Hct MCV MCH MCHC RDW Plt Count [place] % (Auto) Lymph # Seg Neuts % (Manual) Lymphocytes % (Manual) Nucleated RBC % Seg Neutrophils # Man Lymphocytes # (Manual) Monocytes # (Manual) PT INR APTT D-Dimer POC ABG pH ABG pH POC ABG pCO2 POC ABG pO2 ABG pO2 ABG HCO3 ABG O2 Saturation ABG Base Excess ABG Hemoglobin VBG pH Oxyhemoglobin Sodium Potassium Chloride Carbon Dioxide BUN Creatinine Glucose POC Glucose 225 H 176 H 207 H Lactic Acid Calcium Phosphorus Magnesium Iron TIBC Direct Bilirubin AST ALT Alkaline Phosphatase Total Creatine Kinase CK-MB (CK-2) C-Reactive Protein Total Protein Albumin Vitamin B12 Salicylates Acetaminophen Miscellaneous Test Crossmatch 04/07/19 04/07/19 04/07/19 14:13 18:32 22:42 WBC RBC Hgb Hct MCV MCH MCHC RDW Plt Count [place] % (Auto) Lymph # Seg Neuts % (Manual) Lymphocytes % (Manual) Nucleated RBC % Seg Neutrophils # Man Lymphocytes # (Manual) Monocytes # (Manual) PT INR APTT D-Dimer POC ABG pH ABG pH POC ABG pCO2 POC ABG pO2 ABG pO2 ABG HCO3 ABG O2 Saturation ABG Base Excess ABG Hemoglobin VBG pH Oxyhemoglobin Sodium Potassium Chloride Carbon Dioxide BUN Creatinine Glucose POC Glucose 219 H 227 H 238 H Lactic Acid Calcium Phosphorus Magnesium Iron TIBC Direct Bilirubin AST ALT Alkaline Phosphatase Total Creatine Kinase CK-MB (CK-2) C-Reactive Protein Total Protein Albumin Vitamin B12 Salicylates Acetaminophen Miscellaneous Test Crossmatch 04/08/19 04/08/19 04/08/19 02:31 05:37 14:10 WBC RBC Hgb Hct MCV MCH MCHC RDW Plt Count [place] % (Auto) Lymph # Seg Neuts % (Manual) Lymphocytes % (Manual) Nucleated RBC % Seg Neutrophils # Man Lymphocytes # (Manual) Monocytes # (Manual) PT INR APTT D-Dimer POC ABG pH ABG pH POC ABG pCO2 POC ABG pO2 ABG pO2 ABG HCO3 ABG O2 Saturation ABG Base Excess ABG Hemoglobin VBG pH Oxyhemoglobin Sodium Potassium Chloride Carbon Dioxide BUN Creatinine Glucose POC Glucose 194 H 194 H 139 H Lactic Acid Calcium Phosphorus Magnesium Iron TIBC Direct Bilirubin AST ALT Alkaline Phosphatase Total Creatine Kinase CK-MB (CK-2) C-Reactive Protein Total Protein Albumin Vitamin B12 Salicylates Acetaminophen Miscellaneous Test Crossmatch 04/08/19 04/08/19 04/09/19 17:43 23:20 03:28 WBC RBC Hgb Hct MCV MCH MCHC RDW Plt Count [place] % (Auto) Lymph # Seg Neuts % (Manual) Lymphocytes % (Manual) Nucleated RBC % Seg Neutrophils # Man Lymphocytes # (Manual) Monocytes # (Manual) PT INR APTT D-Dimer POC ABG pH ABG pH POC ABG pCO2 POC ABG pO2 ABG pO2 ABG HCO3 ABG O2 Saturation ABG Base Excess ABG Hemoglobin VBG pH Oxyhemoglobin Sodium Potassium Chloride Carbon Dioxide BUN Creatinine Glucose POC Glucose 261 H 277 H 301 H Lactic Acid Calcium Phosphorus Magnesium Iron TIBC Direct Bilirubin AST ALT Alkaline Phosphatase Total Creatine Kinase CK-MB (CK-2) C-Reactive Protein Total Protein Albumin Vitamin B12 Salicylates Acetaminophen Miscellaneous Test Crossmatch 04/09/19 04/09/19 04/09/19 05:35 05:35 05:35 WBC RBC 2.78 L Hgb 9.0 L Hct 26.7 L MCV MCH MCHC RDW 17.0 H Plt Count [place] % (Auto) Lymph # Seg Neuts % (Manual) Lymphocytes % (Manual) Nucleated RBC % Seg Neutrophils # Man Lymphocytes # (Manual) Monocytes # (Manual) PT INR APTT D-Dimer POC ABG pH ABG pH POC ABG pCO2 POC ABG pO2 ABG pO2 ABG HCO3 ABG O2 Saturation ABG Base Excess ABG Hemoglobin VBG pH Oxyhemoglobin Sodium Potassium Chloride Carbon Dioxide 31 H BUN Creatinine 0.2 L Glucose 218 H POC Glucose 240 H Lactic Acid Calcium Phosphorus Magnesium Iron TIBC Direct Bilirubin AST ALT Alkaline Phosphatase Total Creatine Kinase CK-MB (CK-2) C-Reactive Protein Total Protein Albumin Vitamin B12 Salicylates Acetaminophen Miscellaneous Test Crossmatch 04/09/19 04/09/19 04/09/19 09:01 12:23 17:33 WBC RBC Hgb Hct MCV MCH MCHC RDW Plt Count [place] % (Auto) Lymph # Seg Neuts % (Manual) Lymphocytes % (Manual) Nucleated RBC % Seg Neutrophils # Man Lymphocytes # (Manual) Monocytes # (Manual) PT INR APTT D-Dimer POC ABG pH ABG pH POC ABG pCO2 POC ABG pO2 ABG pO2 ABG HCO3 ABG O2 Saturation ABG Base Excess ABG Hemoglobin VBG pH Oxyhemoglobin Sodium Potassium Chloride Carbon Dioxide BUN Creatinine Glucose POC Glucose 160 H 162 H 149 H Lactic Acid Calcium Phosphorus Magnesium Iron TIBC Direct Bilirubin AST ALT Alkaline Phosphatase Total Creatine Kinase CK-MB (CK-2) C-Reactive Protein Total Protein Albumin Vitamin B12 Salicylates Acetaminophen Miscellaneous Test Crossmatch 04/09/19 04/09/19 04/10/19 21:26 22:28 03:16 WBC RBC Hgb Hct MCV MCH MCHC RDW Plt Count [place] % (Auto) Lymph # Seg Neuts % (Manual) Lymphocytes % (Manual) Nucleated RBC % Seg Neutrophils # Man Lymphocytes # (Manual) Monocytes # (Manual) PT INR APTT D-Dimer POC ABG pH ABG pH POC ABG pCO2 POC ABG pO2 ABG pO2 ABG HCO3 ABG O2 Saturation ABG Base Excess ABG Hemoglobin VBG pH Oxyhemoglobin Sodium Potassium Chloride Carbon Dioxide BUN Creatinine Glucose POC Glucose 196 H 224 H 163 H Lactic Acid Calcium Phosphorus Magnesium Iron TIBC Direct Bilirubin AST ALT Alkaline Phosphatase Total Creatine Kinase CK-MB (CK-2) C-Reactive Protein Total Protein Albumin Vitamin B12 Salicylates Acetaminophen Miscellaneous Test Crossmatch 04/10/19 04/10/19 04/10/19 04:15 04:15 05:30 WBC RBC 2.88 L Hgb 9.2 L Hct 27.9 L MCV MCH MCHC RDW 17.0 H Plt Count 454 H [place] % (Auto) Lymph # Seg Neuts % (Manual) Lymphocytes % (Manual) Nucleated RBC % Seg Neutrophils # Man Lymphocytes # (Manual) Monocytes # (Manual) PT INR APTT D-Dimer POC ABG pH ABG pH POC ABG pCO2 POC ABG pO2 ABG pO2 ABG HCO3 ABG O2 Saturation ABG Base Excess ABG Hemoglobin VBG pH Oxyhemoglobin Sodium Potassium Chloride Carbon Dioxide 32 H BUN Creatinine 0.2 L Glucose 126 H POC Glucose 135 H Lactic Acid Calcium Phosphorus Magnesium Iron TIBC Direct Bilirubin AST ALT Alkaline Phosphatase Total Creatine Kinase CK-MB (CK-2) C-Reactive Protein Total Protein Albumin Vitamin B12 Salicylates Acetaminophen Miscellaneous Test Crossmatch 04/10/19 04/10/19 04/10/19 12:14 15:29 23:38 WBC RBC Hgb Hct MCV MCH MCHC RDW Plt Count [place] % (Auto) Lymph # Seg Neuts % (Manual) Lymphocytes % (Manual) Nucleated RBC % Seg Neutrophils # Man Lymphocytes # (Manual) Monocytes # (Manual) PT INR APTT D-Dimer POC ABG pH ABG pH POC ABG pCO2 POC ABG pO2 ABG pO2 ABG HCO3 ABG O2 Saturation ABG Base Excess ABG Hemoglobin VBG pH Oxyhemoglobin Sodium Potassium Chloride Carbon Dioxide BUN Creatinine Glucose POC Glucose 109 H 149 H 268 H Lactic Acid Calcium Phosphorus Magnesium Iron TIBC Direct Bilirubin AST ALT Alkaline Phosphatase Total Creatine Kinase CK-MB (CK-2) C-Reactive Protein Total Protein Albumin Vitamin B12 Salicylates Acetaminophen Miscellaneous Test Crossmatch 04/11/19 04/11/19 04/11/19 05:27 12:08 18:08 WBC RBC Hgb Hct MCV MCH MCHC RDW Plt Count [place] % (Auto) Lymph # Seg Neuts % (Manual) Lymphocytes % (Manual) Nucleated RBC % Seg Neutrophils # Man Lymphocytes # (Manual) Monocytes # (Manual) PT INR APTT D-Dimer POC ABG pH ABG pH POC ABG pCO2 POC ABG pO2 ABG pO2 ABG HCO3 ABG O2 Saturation ABG Base Excess ABG Hemoglobin VBG pH Oxyhemoglobin Sodium Potassium Chloride Carbon Dioxide BUN Creatinine Glucose POC Glucose 109 H 185 H 190 H Lactic Acid Calcium Phosphorus Magnesium Iron TIBC Direct Bilirubin AST ALT Alkaline Phosphatase Total Creatine Kinase CK-MB (CK-2) C-Reactive Protein Total Protein Albumin Vitamin B12 Salicylates Acetaminophen Miscellaneous Test Crossmatch 04/11/19 04/12/19 04/12/19 23:23 06:00 11:42 WBC RBC Hgb Hct MCV MCH MCHC RDW Plt Count [place] % (Auto) Lymph # Seg Neuts % (Manual) Lymphocytes % (Manual) Nucleated RBC % Seg Neutrophils # Man Lymphocytes # (Manual) Monocytes # (Manual) PT INR APTT D-Dimer POC ABG pH ABG pH POC ABG pCO2 POC ABG pO2 ABG pO2 ABG HCO3 ABG O2 Saturation ABG Base Excess ABG Hemoglobin VBG pH Oxyhemoglobin Sodium Potassium Chloride Carbon Dioxide BUN Creatinine Glucose POC Glucose 127 H 201 H 161 H Lactic Acid Calcium Phosphorus Magnesium Iron TIBC Direct Bilirubin AST ALT Alkaline Phosphatase Total Creatine Kinase CK-MB (CK-2) C-Reactive Protein Total Protein Albumin Vitamin B12 Salicylates Acetaminophen Miscellaneous Test Crossmatch 04/12/19 04/12/19 04/12/19 17:56 20:07 21:59 WBC RBC Hgb Hct MCV MCH MCHC RDW Plt Count [place] % (Auto) Lymph # Seg Neuts % (Manual) Lymphocytes % (Manual) Nucleated RBC % Seg Neutrophils # Man Lymphocytes # (Manual) Monocytes # (Manual) PT INR APTT D-Dimer POC ABG pH ABG pH POC ABG pCO2 POC ABG pO2 ABG pO2 ABG HCO3 ABG O2 Saturation ABG Base Excess ABG Hemoglobin VBG pH Oxyhemoglobin Sodium Potassium Chloride Carbon Dioxide BUN Creatinine Glucose POC Glucose 145 H 158 H 203 H Lactic Acid Calcium Phosphorus Magnesium Iron TIBC Direct Bilirubin AST ALT Alkaline Phosphatase Total Creatine Kinase CK-MB (CK-2) C-Reactive Protein Total Protein Albumin Vitamin B12 Salicylates Acetaminophen Miscellaneous Test Crossmatch 04/12/19 04/13/19 04/13/19 23:37 08:50 08:50 WBC 15.7 H RBC 3.12 L Hgb Hct 30.2 L MCV MCH 33 H MCHC RDW 18.0 H Plt Count 678 H [place] % (Auto) Lymph # Seg Neuts % (Manual) Lymphocytes % (Manual) Nucleated RBC % Seg Neutrophils # Man Lymphocytes # (Manual) Monocytes # (Manual) PT INR APTT D-Dimer POC ABG pH ABG pH POC ABG pCO2 POC ABG pO2 ABG pO2 ABG HCO3 ABG O2 Saturation ABG Base Excess ABG Hemoglobin VBG pH Oxyhemoglobin Sodium Potassium Chloride Carbon Dioxide BUN Creatinine < 0.2 L Glucose 46 L POC Glucose 238 H Lactic Acid Calcium Phosphorus Magnesium Iron TIBC Direct Bilirubin AST ALT Alkaline Phosphatase Total Creatine Kinase CK-MB (CK-2) C-Reactive Protein Total Protein Albumin Vitamin B12 Salicylates Acetaminophen Miscellaneous Test Crossmatch 04/13/19 04/13/19 04/13/19 11:56 17:27 23:57 WBC RBC Hgb Hct MCV MCH MCHC RDW Plt Count [place] % (Auto) Lymph # Seg Neuts % (Manual) Lymphocytes % (Manual) Nucleated RBC % Seg Neutrophils # Man Lymphocytes # (Manual) Monocytes # (Manual) PT INR APTT D-Dimer POC ABG pH ABG pH POC ABG pCO2 POC ABG pO2 ABG pO2 ABG HCO3 ABG O2 Saturation ABG Base Excess ABG Hemoglobin VBG pH Oxyhemoglobin Sodium Potassium Chloride Carbon Dioxide BUN Creatinine Glucose POC Glucose 40 L 66 L 65 L Lactic Acid Calcium Phosphorus Magnesium Iron TIBC Direct Bilirubin AST ALT Alkaline Phosphatase Total Creatine Kinase CK-MB (CK-2) C-Reactive Protein Total Protein Albumin Vitamin B12 Salicylates Acetaminophen Miscellaneous Test Crossmatch 04/14/19 04/14/19 04/14/19 05:28 08:20 08:20 WBC 17.8 H RBC 3.26 L Hgb Hct MCV 98 H MCH MCHC RDW 18.3 H Plt Count 622 H [place] % (Auto) Lymph # Seg Neuts % (Manual) Lymphocytes % (Manual) Nucleated RBC % Seg Neutrophils # Man Lymphocytes # (Manual) Monocytes # (Manual) PT INR APTT D-Dimer POC ABG pH ABG pH POC ABG pCO2 POC ABG pO2 ABG pO2 ABG HCO3 ABG O2 Saturation ABG Base Excess ABG Hemoglobin VBG pH Oxyhemoglobin Sodium Potassium Chloride Carbon Dioxide BUN 6 L Creatinine < 0.2 L Glucose 154 H POC Glucose 149 H Lactic Acid Calcium Phosphorus Magnesium Iron TIBC Direct Bilirubin AST ALT Alkaline Phosphatase Total Creatine Kinase CK-MB (CK-2) C-Reactive Protein Total Protein Albumin Vitamin B12 Salicylates Acetaminophen Miscellaneous Test Crossmatch 04/14/19 04/14/19 04/14/19 12:16 17:54 23:35 WBC RBC Hgb Hct MCV MCH MCHC RDW Plt Count [place] % (Auto) Lymph # Seg Neuts % (Manual) Lymphocytes % (Manual) Nucleated RBC % Seg Neutrophils # Man Lymphocytes # (Manual) Monocytes # (Manual) PT INR APTT D-Dimer POC ABG pH ABG pH POC ABG pCO2 POC ABG pO2 ABG pO2 ABG HCO3 ABG O2 Saturation ABG Base Excess ABG Hemoglobin VBG pH Oxyhemoglobin Sodium Potassium Chloride Carbon Dioxide BUN Creatinine Glucose POC Glucose 176 H 224 H 173 H Lactic Acid Calcium Phosphorus Magnesium Iron TIBC Direct Bilirubin AST ALT Alkaline Phosphatase Total Creatine Kinase CK-MB (CK-2) C-Reactive Protein Total Protein Albumin Vitamin B12 Salicylates Acetaminophen Miscellaneous Test Crossmatch 04/15/19 04/15/19 04/15/19 05:44 12:44 18:06 WBC RBC Hgb Hct MCV MCH MCHC RDW Plt Count [place] % (Auto) Lymph # Seg Neuts % (Manual) Lymphocytes % (Manual) Nucleated RBC % Seg Neutrophils # Man Lymphocytes # (Manual) Monocytes # (Manual) PT INR APTT D-Dimer POC ABG pH 7.461 H ABG pH POC ABG pCO2 45.5 H POC ABG pO2 ABG pO2 ABG HCO3 ABG O2 Saturation ABG Base Excess ABG Hemoglobin VBG pH Oxyhemoglobin Sodium Potassium Chloride Carbon Dioxide BUN Creatinine Glucose POC Glucose 255 H 365 H Lactic Acid Calcium Phosphorus Magnesium Iron TIBC Direct Bilirubin AST ALT Alkaline Phosphatase Total Creatine Kinase CK-MB (CK-2) C-Reactive Protein Total Protein Albumin Vitamin B12 Salicylates Acetaminophen Miscellaneous Test Crossmatch 04/15/19 04/15/19 04/16/19 18:06 23:34 00:40 WBC RBC Hgb Hct MCV MCH MCHC RDW Plt Count [place] % (Auto) Lymph # Seg Neuts % (Manual) Lymphocytes % (Manual) Nucleated RBC % Seg Neutrophils # Man Lymphocytes # (Manual) Monocytes # (Manual) PT INR APTT D-Dimer POC ABG pH ABG pH POC ABG pCO2 POC ABG pO2 ABG pO2 ABG HCO3 ABG O2 Saturation ABG Base Excess ABG Hemoglobin VBG pH Oxyhemoglobin Sodium Potassium Chloride Carbon Dioxide BUN Creatinine Glucose POC Glucose 157 H 56 L 107 H Lactic Acid Calcium Phosphorus Magnesium Iron TIBC Direct Bilirubin AST ALT Alkaline Phosphatase Total Creatine Kinase CK-MB (CK-2) C-Reactive Protein Total Protein Albumin Vitamin B12 Salicylates Acetaminophen Miscellaneous Test Crossmatch 04/16/19 04/16/19 04/16/19 09:06 09:06 11:21 WBC 12.9 H RBC 2.95 L Hgb 9.7 L Hct 28.9 L MCV 98 H MCH 33 H MCHC RDW 17.7 H Plt Count 581 H [place] % (Auto) Lymph # Seg Neuts % (Manual) Lymphocytes % (Manual) Nucleated RBC % Seg Neutrophils # Man Lymphocytes # (Manual) Monocytes # (Manual) PT INR APTT D-Dimer POC ABG pH ABG pH POC ABG pCO2 POC ABG pO2 ABG pO2 ABG HCO3 ABG O2 Saturation ABG Base Excess ABG Hemoglobin VBG pH Oxyhemoglobin Sodium Potassium Chloride Carbon Dioxide 31 H BUN Creatinine 0.2 L Glucose 155 H POC Glucose 184 H Lactic Acid Calcium Phosphorus Magnesium Iron TIBC Direct Bilirubin AST ALT Alkaline Phosphatase Total Creatine Kinase CK-MB (CK-2) C-Reactive Protein Total Protein Albumin Vitamin B12 Salicylates Acetaminophen Miscellaneous Test Crossmatch 04/16/19 04/16/19 04/16/19 17:28 20:17 23:09 WBC RBC Hgb Hct MCV MCH MCHC RDW Plt Count [place] % (Auto) Lymph # Seg Neuts % (Manual) Lymphocytes % (Manual) Nucleated RBC % Seg Neutrophils # Man Lymphocytes # (Manual) Monocytes # (Manual) PT INR APTT D-Dimer POC ABG pH 7.479 H ABG pH POC ABG pCO2 POC ABG pO2 71 L ABG pO2 ABG HCO3 ABG O2 Saturation ABG Base Excess ABG Hemoglobin VBG pH Oxyhemoglobin Sodium Potassium Chloride Carbon Dioxide BUN Creatinine Glucose POC Glucose 173 H 178 H Lactic Acid Calcium Phosphorus Magnesium Iron TIBC Direct Bilirubin AST ALT Alkaline Phosphatase Total Creatine Kinase CK-MB (CK-2) C-Reactive Protein Total Protein Albumin Vitamin B12 Salicylates Acetaminophen Miscellaneous Test Crossmatch 04/17/19 04/17/19 04/17/19 05:02 11:39 12:48 WBC RBC Hgb Hct MCV MCH MCHC RDW Plt Count [place] % (Auto) Lymph # Seg Neuts % (Manual) Lymphocytes % (Manual) Nucleated RBC % Seg Neutrophils # Man Lymphocytes # (Manual) Monocytes # (Manual) PT INR APTT D-Dimer POC ABG pH 7.557 H ABG pH POC ABG pCO2 32.8 L POC ABG pO2 149 H ABG pO2 ABG HCO3 ABG O2 Saturation ABG Base Excess ABG Hemoglobin VBG pH Oxyhemoglobin Sodium Potassium Chloride Carbon Dioxide BUN Creatinine Glucose POC Glucose 252 H 124 H Lactic Acid Calcium Phosphorus Magnesium Iron TIBC Direct Bilirubin AST ALT Alkaline Phosphatase Total Creatine Kinase CK-MB (CK-2) C-Reactive Protein Total Protein Albumin Vitamin B12 Salicylates Acetaminophen Miscellaneous Test Crossmatch 04/17/19 04/18/19 04/18/19 23:31 05:32 11:34 WBC RBC Hgb Hct MCV MCH MCHC RDW Plt Count [place] % (Auto) Lymph # Seg Neuts % (Manual) Lymphocytes % (Manual) Nucleated RBC % Seg Neutrophils # Man Lymphocytes # (Manual) Monocytes # (Manual) PT INR APTT D-Dimer POC ABG pH ABG pH POC ABG pCO2 POC ABG pO2 ABG pO2 ABG HCO3 ABG O2 Saturation ABG Base Excess ABG Hemoglobin VBG pH Oxyhemoglobin Sodium Potassium Chloride Carbon Dioxide BUN Creatinine Glucose POC Glucose 149 H 334 H 344 H Lactic Acid Calcium Phosphorus Magnesium Iron TIBC Direct Bilirubin AST ALT Alkaline Phosphatase Total Creatine Kinase CK-MB (CK-2) C-Reactive Protein Total Protein Albumin Vitamin B12 Salicylates Acetaminophen Miscellaneous Test Crossmatch 04/18/19 04/18/19 04/18/19 17:43 18:14 23:35 WBC RBC Hgb Hct MCV MCH MCHC RDW Plt Count [place] % (Auto) Lymph # Seg Neuts % (Manual) Lymphocytes % (Manual) Nucleated RBC % Seg Neutrophils # Man Lymphocytes # (Manual) Monocytes # (Manual) PT INR APTT D-Dimer POC ABG pH ABG pH POC ABG pCO2 49.2 H POC ABG pO2 ABG pO2 ABG HCO3 ABG O2 Saturation ABG Base Excess ABG Hemoglobin VBG pH Oxyhemoglobin Sodium Potassium Chloride Carbon Dioxide BUN Creatinine Glucose POC Glucose 289 H 312 H Lactic Acid Calcium Phosphorus Magnesium Iron TIBC Direct Bilirubin AST ALT Alkaline Phosphatase Total Creatine Kinase CK-MB (CK-2) C-Reactive Protein Total Protein Albumin Vitamin B12 Salicylates Acetaminophen Miscellaneous Test Crossmatch 04/19/19 04/19/19 04/19/19 04:35 05:55 12:26 WBC RBC Hgb Hct MCV MCH MCHC RDW Plt Count [place] % (Auto) Lymph # Seg Neuts % (Manual) Lymphocytes % (Manual) Nucleated RBC % Seg Neutrophils # Man Lymphocytes # (Manual) Monocytes # (Manual) PT INR APTT D-Dimer POC ABG pH 7.565 H ABG pH POC ABG pCO2 POC ABG pO2 ABG pO2 ABG HCO3 ABG O2 Saturation ABG Base Excess ABG Hemoglobin VBG pH Oxyhemoglobin Sodium Potassium Chloride Carbon Dioxide BUN Creatinine Glucose POC Glucose 172 H 271 H Lactic Acid Calcium Phosphorus Magnesium Iron TIBC Direct Bilirubin AST ALT Alkaline Phosphatase Total Creatine Kinase CK-MB (CK-2) C-Reactive Protein Total Protein Albumin Vitamin B12 Salicylates Acetaminophen Miscellaneous Test Crossmatch 04/19/19 04/19/19 04/19/19 17:54 21:10 23:35 WBC RBC Hgb Hct MCV MCH MCHC RDW Plt Count [place] % (Auto) Lymph # Seg Neuts % (Manual) Lymphocytes % (Manual) Nucleated RBC % Seg Neutrophils # Man Lymphocytes # (Manual) Monocytes # (Manual) PT INR APTT D-Dimer POC ABG pH ABG pH POC ABG pCO2 POC ABG pO2 ABG pO2 ABG HCO3 ABG O2 Saturation ABG Base Excess ABG Hemoglobin VBG pH Oxyhemoglobin Sodium Potassium Chloride Carbon Dioxide BUN Creatinine Glucose POC Glucose 229 H 189 H 131 H Lactic Acid Calcium Phosphorus Magnesium Iron TIBC Direct Bilirubin AST ALT Alkaline Phosphatase Total Creatine Kinase CK-MB (CK-2) C-Reactive Protein Total Protein Albumin Vitamin B12 Salicylates Acetaminophen Miscellaneous Test Crossmatch 04/20/19 04/20/19 04/20/19 05:42 11:58 17:32 WBC RBC Hgb Hct MCV MCH MCHC RDW Plt Count [place] % (Auto) Lymph # Seg Neuts % (Manual) Lymphocytes % (Manual) Nucleated RBC % Seg Neutrophils # Man Lymphocytes # (Manual) Monocytes # (Manual) PT INR APTT D-Dimer POC ABG pH ABG pH POC ABG pCO2 POC ABG pO2 ABG pO2 ABG HCO3 ABG O2 Saturation ABG Base Excess ABG Hemoglobin VBG pH Oxyhemoglobin Sodium Potassium Chloride Carbon Dioxide BUN Creatinine Glucose POC Glucose 289 H 265 H 232 H Lactic Acid Calcium Phosphorus Magnesium Iron TIBC Direct Bilirubin AST ALT Alkaline Phosphatase Total Creatine Kinase CK-MB (CK-2) C-Reactive Protein Total Protein Albumin Vitamin B12 Salicylates Acetaminophen Miscellaneous Test Crossmatch 04/21/19 04/21/19 04/21/19 00:02 05:13 12:41 WBC RBC Hgb Hct MCV MCH MCHC RDW Plt Count [place] % (Auto) Lymph # Seg Neuts % (Manual) Lymphocytes % (Manual) Nucleated RBC % Seg Neutrophils # Man Lymphocytes # (Manual) Monocytes # (Manual) PT INR APTT D-Dimer POC ABG pH ABG pH POC ABG pCO2 POC ABG pO2 ABG pO2 ABG HCO3 ABG O2 Saturation ABG Base Excess ABG Hemoglobin VBG pH Oxyhemoglobin Sodium Potassium Chloride Carbon Dioxide BUN Creatinine Glucose POC Glucose 126 H 233 H 205 H Lactic Acid Calcium Phosphorus Magnesium Iron TIBC Direct Bilirubin AST ALT Alkaline Phosphatase Total Creatine Kinase CK-MB (CK-2) C-Reactive Protein Total Protein Albumin Vitamin B12 Salicylates Acetaminophen Miscellaneous Test Crossmatch 04/21/19 04/22/19 04/22/19 23:42 03:57 03:57 WBC 11.5 H RBC 3.44 L Hgb Hct MCV MCH MCHC RDW 16.3 H Plt Count 510 H [place] % (Auto) Lymph # Seg Neuts % (Manual) Lymphocytes % (Manual) Nucleated RBC % Seg Neutrophils # Man Lymphocytes # (Manual) Monocytes # (Manual) PT INR APTT D-Dimer POC ABG pH ABG pH POC ABG pCO2 POC ABG pO2 ABG pO2 ABG HCO3 ABG O2 Saturation ABG Base Excess ABG Hemoglobin VBG pH Oxyhemoglobin Sodium Potassium Chloride 96.3 L Carbon Dioxide BUN Creatinine 0.2 L Glucose 333 H POC Glucose 149 H Lactic Acid Calcium Phosphorus Magnesium Iron TIBC Direct Bilirubin AST 60 H ALT Alkaline Phosphatase 204 H Total Creatine Kinase CK-MB (CK-2) C-Reactive Protein Total Protein Albumin 3.1 L Vitamin B12 Salicylates Acetaminophen Miscellaneous Test Crossmatch 04/22/19 04/22/19 04/22/19 05:18 12:03 18:17 WBC RBC Hgb Hct MCV MCH MCHC RDW Plt Count [place] % (Auto) Lymph # Seg Neuts % (Manual) Lymphocytes % (Manual) Nucleated RBC % Seg Neutrophils # Man Lymphocytes # (Manual) Monocytes # (Manual) PT INR APTT D-Dimer POC ABG pH ABG pH POC ABG pCO2 POC ABG pO2 ABG pO2 ABG HCO3 ABG O2 Saturation ABG Base Excess ABG Hemoglobin VBG pH Oxyhemoglobin Sodium Potassium Chloride Carbon Dioxide BUN Creatinine Glucose POC Glucose 345 H 308 H 169 H Lactic Acid Calcium Phosphorus Magnesium Iron TIBC Direct Bilirubin AST ALT Alkaline Phosphatase Total Creatine Kinase CK-MB (CK-2) C-Reactive Protein Total Protein Albumin Vitamin B12 Salicylates Acetaminophen Miscellaneous Test Crossmatch 04/23/19 04/23/19 04/23/19 00:14 05:43 11:15 WBC RBC Hgb Hct MCV MCH MCHC RDW Plt Count [place] % (Auto) Lymph # Seg Neuts % (Manual) Lymphocytes % (Manual) Nucleated RBC % Seg Neutrophils # Man Lymphocytes # (Manual) Monocytes # (Manual) PT INR APTT D-Dimer POC ABG pH ABG pH POC ABG pCO2 POC ABG pO2 ABG pO2 ABG HCO3 ABG O2 Saturation ABG Base Excess ABG Hemoglobin VBG pH Oxyhemoglobin Sodium Potassium Chloride Carbon Dioxide BUN Creatinine Glucose POC Glucose 192 H 260 H 186 H Lactic Acid Calcium Phosphorus Magnesium Iron TIBC Direct Bilirubin AST ALT Alkaline Phosphatase Total Creatine Kinase CK-MB (CK-2) C-Reactive Protein Total Protein Albumin Vitamin B12 Salicylates Acetaminophen Miscellaneous Test Crossmatch 04/23/19 04/23/19 04/24/19 15:44 21:30 00:09 WBC RBC Hgb Hct MCV MCH MCHC RDW Plt Count [place] % (Auto) Lymph # Seg Neuts % (Manual) Lymphocytes % (Manual) Nucleated RBC % Seg Neutrophils # Man Lymphocytes # (Manual) Monocytes # (Manual) PT INR APTT D-Dimer POC ABG pH ABG pH POC ABG pCO2 POC ABG pO2 ABG pO2 ABG HCO3 ABG O2 Saturation ABG Base Excess ABG Hemoglobin VBG pH Oxyhemoglobin Sodium Potassium Chloride Carbon Dioxide BUN Creatinine Glucose POC Glucose 164 H 407 H 280 H Lactic Acid Calcium Phosphorus Magnesium Iron TIBC Direct Bilirubin AST ALT Alkaline Phosphatase Total Creatine Kinase CK-MB (CK-2) C-Reactive Protein Total Protein Albumin Vitamin B12 Salicylates Acetaminophen Miscellaneous Test Crossmatch 04/24/19 04/24/19 04/24/19 06:01 06:39 14:51 WBC RBC Hgb Hct MCV MCH MCHC RDW Plt Count [place] % (Auto) Lymph # Seg Neuts % (Manual) Lymphocytes % (Manual) Nucleated RBC % Seg Neutrophils # Man Lymphocytes # (Manual) Monocytes # (Manual) PT INR APTT D-Dimer POC ABG pH ABG pH POC ABG pCO2 POC ABG pO2 ABG pO2 ABG HCO3 ABG O2 Saturation ABG Base Excess ABG Hemoglobin VBG pH Oxyhemoglobin Sodium Potassium Chloride Carbon Dioxide BUN Creatinine Glucose POC Glucose 65 L 125 H 207 H Lactic Acid Calcium Phosphorus Magnesium Iron TIBC Direct Bilirubin AST ALT Alkaline Phosphatase Total Creatine Kinase CK-MB (CK-2) C-Reactive Protein Total Protein Albumin Vitamin B12 Salicylates Acetaminophen Miscellaneous Test Crossmatch 04/24/19 04/25/19 04/25/19 18:03 01:46 05:56 WBC RBC Hgb Hct MCV MCH MCHC RDW Plt Count [place] % (Auto) Lymph # Seg Neuts % (Manual) Lymphocytes % (Manual) Nucleated RBC % Seg Neutrophils # Man Lymphocytes # (Manual) Monocytes # (Manual) PT INR APTT D-Dimer POC ABG pH ABG pH POC ABG pCO2 POC ABG pO2 ABG pO2 ABG HCO3 ABG O2 Saturation ABG Base Excess ABG Hemoglobin VBG pH Oxyhemoglobin Sodium Potassium Chloride Carbon Dioxide BUN Creatinine Glucose POC Glucose 140 H 125 H 208 H Lactic Acid Calcium Phosphorus Magnesium Iron TIBC Direct Bilirubin AST ALT Alkaline Phosphatase Total Creatine Kinase CK-MB (CK-2) C-Reactive Protein Total Protein Albumin Vitamin B12 Salicylates Acetaminophen Miscellaneous Test Crossmatch 04/25/19 04/25/19 04/25/19 08:12 13:06 18:04 WBC RBC Hgb Hct MCV MCH MCHC RDW Plt Count [place] % (Auto) Lymph # Seg Neuts % (Manual) Lymphocytes % (Manual) Nucleated RBC % Seg Neutrophils # Man Lymphocytes # (Manual) Monocytes # (Manual) PT INR APTT D-Dimer POC ABG pH ABG pH POC ABG pCO2 POC ABG pO2 ABG pO2 ABG HCO3 ABG O2 Saturation ABG Base Excess ABG Hemoglobin VBG pH Oxyhemoglobin Sodium Potassium Chloride Carbon Dioxide BUN Creatinine Glucose POC Glucose 127 H 147 H 340 H Lactic Acid Calcium Phosphorus Magnesium Iron TIBC Direct Bilirubin AST ALT Alkaline Phosphatase Total Creatine Kinase CK-MB (CK-2) C-Reactive Protein Total Protein Albumin Vitamin B12 Salicylates Acetaminophen Miscellaneous Test Crossmatch 04/26/19 04/26/19 04/26/19 00:16 05:15 11:26 WBC RBC Hgb Hct MCV MCH MCHC RDW Plt Count [place] % (Auto) Lymph # Seg Neuts % (Manual) Lymphocytes % (Manual) Nucleated RBC % Seg Neutrophils # Man Lymphocytes # (Manual) Monocytes # (Manual) PT INR APTT D-Dimer POC ABG pH ABG pH POC ABG pCO2 POC ABG pO2 ABG pO2 ABG HCO3 ABG O2 Saturation ABG Base Excess ABG Hemoglobin VBG pH Oxyhemoglobin Sodium Potassium Chloride Carbon Dioxide BUN Creatinine Glucose POC Glucose 137 H 136 H 365 H Lactic Acid Calcium Phosphorus Magnesium Iron TIBC Direct Bilirubin AST ALT Alkaline Phosphatase Total Creatine Kinase CK-MB (CK-2) C-Reactive Protein Total Protein Albumin Vitamin B12 Salicylates Acetaminophen Miscellaneous Test Crossmatch 04/26/19 04/26/19 04/27/19 18:03 21:30 06:14 WBC RBC Hgb Hct MCV MCH MCHC RDW Plt Count [place] % (Auto) Lymph # Seg Neuts % (Manual) Lymphocytes % (Manual) Nucleated RBC % Seg Neutrophils # Man Lymphocytes # (Manual) Monocytes # (Manual) PT INR APTT D-Dimer POC ABG pH ABG pH POC ABG pCO2 POC ABG pO2 ABG pO2 ABG HCO3 ABG O2 Saturation ABG Base Excess ABG Hemoglobin VBG pH Oxyhemoglobin Sodium Potassium Chloride Carbon Dioxide BUN Creatinine Glucose POC Glucose 124 H 231 H 199 H Lactic Acid Calcium Phosphorus Magnesium Iron TIBC Direct Bilirubin AST ALT Alkaline Phosphatase Total Creatine Kinase CK-MB (CK-2) C-Reactive Protein Total Protein Albumin Vitamin B12 Salicylates Acetaminophen Miscellaneous Test Crossmatch Allied health notes reviewed: nursing
[2019-04-27] MEDS: ENOXAPARIN SUB-Q SCH (10:57)
[2019-04-27] MEDS: SODIUM CHLORIDE FLUSH SYRINGE 10 ML IV SCH ×2 (10:57→22:22)
[2019-04-27] MEDS: KEPPRA PO SCH ×2 (10:57→22:21)
[2019-04-27] MEDS: LANTUS SUB-Q SCH (22:22)
[2019-04-28] MEDS: HumaLOG SUB-Q SCH ×4 (02:09→18:32)
--- NOTE | 2019-04-28 08:38 | Progress Note ---
Assessment and Plan Assessment and plan: Uncontrolled DM type 1 with hyperglycemia - cont. basal insulin Lantus - increase SSI Acute respiratory failure s/p intubated, off vent - s/p trach and peg - Tracheostomy re-adjusted on 04/17/19 - on vent, cont nebs, - s/p Trach POD 3 - Pulm following - Aspiration precautions - VAP bundle Acute anoxic encephalopathy, POA - from cardiac arrest -MR concerning for anoxic Brain injury Cardiac arrest s/p resuscitation - likely 2/2 severe hyperglycemia - preserved EF on 2D echo Generalized Anasacara -Given a dose of Bumex s/p DKA, severe Shock hypotensive +/- sepsis - resolved Now off pressors. Was on vasopressin, Levophed, Phenylephrine Sepsis with possible aspiration PNA - evident on CXR on admission with left sided infiltrates - Competed abx - Abx discontinued following notation that no evidence of liver lesion not consistent with infection per ID - Leucocytosis and thrombocytosis are likely reactive from hepatic subcapsular hematoma Head lice - multiple dosing of Permethin given, resolved Acute renal failure, likely vasomotor nephropathy - resolved Anemia, acute on chronic - no sign of blood loss s/p 2 Units PRBC transfused Hyperkalemia, resolved with fluid and insulin Hypernatremia Resolved hypokalemia, resolved Shock liver with elevated LFT and Coagulopathy - due to cardiac arrest and hypotension - cont to monitor Liver lesion ID Physician following Discontinued abx, not consistent with infection as noted above Hypermagnesemia - monitor levels as needed Hyperphosphatemia -cont to monitor, improved Stage 1 sacral ulcer, poa - upper ext blisters - pressure ulcer prevention strategies - wound care VTE Prophylaxis with Lovenox Poor prognosis DNR status Disposition: continue inpatient care, await placement in [place], [place] 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 Her last well-known time was 10:30 in the morning, she was traveling with a friend, she was unresponsive in the back seat. EMS was called, CPR was started and continued here in the emergency room. Patient was intubated in the ER, noted hypotensive started on dobutamine, epinephrine and Levophed drip, given IV fluids, found to be in DKA with BG ~2200, several metabolic derangements - placed on insulin drip and admitted to ICU. BP improved and she was weaned off pressors. Pt off pressors and extubated. Transferred to floor awaiting placement Hospitalist Physical - Constitutional Vitals: Temp Pulse Resp BP Pulse Ox 98.6 F 122 H 24 122/87 92 04/28/19 05:14 04/28/19 05:14 04/28/19 05:14 04/28/19 05:14 04/28/19 05:14 General appearance: Present: other (intubated) - EENT Eyes: Present: PERRL, EOM intact ENT: hearing intact, clear oral mucosa, dentition normal - Neck Neck: Present: supple, normal ROM - Respiratory Respiratory effort: normal Respiratory: bilateral: CTA - Cardiovascular Rhythm: regular Heart Sounds: Present: S1 & S2. Absent: gallop, rub - Extremities Extremities: no ischemia, No edema, Full ROM - Abdominal General gastrointestinal: soft, non-tender, non-distended, normal bowel sounds - Integumentary Integumentary: Present: clear, warm, dry - Neurologic Neurologic: CNII-XII intact, moves all extremities Results - Labs CBC & Chem 7: 04/22/19 03:57 04/22/19 03:57 Labs: Laboratory Last Values WBC 11.5 K/mm3 (4.5-11.0) H 04/22/19 03:57 RBC 3.44 M/mm3 (3.65-5.03) L 04/22/19 03:57 Hgb 10.6 gm/dl (10.1-14.3) 04/22/19 03:57 Hct 32.9 % (30.3-42.9) 04/22/19 03:57 MCV 96 fl (79-97) 04/22/19 03:57 MCH 31 pg (28-32) 04/22/19 03:57 MCHC 32 % (30-34) 04/22/19 03:57 RDW 16.3 % (13.2-15.2) H 04/22/19 03:57 Plt Count 510 K/mm3 (140-440) H 04/22/19 03:57 Lymph % (Auto) 16.9 % (13.4-35.0) 04/03/19 03:40 [place] % (Auto) 9.8 % (0.0-7.3) H 04/03/19 03:40 Eos % (Auto) 3.2 % (0.0-4.3) 04/03/19 03:40 Baso % (Auto) 0.4 % (0.0-1.8) 04/03/19 03:40 Lymph # 1.1 K/mm3 (1.2-5.4) L 04/03/19 03:40 [place] # 0.6 K/mm3 (0.0-0.8) 04/03/19 03:40 Eos # 0.2 K/mm3 (0.0-0.4) 04/03/19 03:40 Baso # 0.0 K/mm3 (0.0-0.1) 04/03/19 03:40 Add Manual Diff Complete 04/01/19 05:01 Total Counted 100 04/01/19 05:01 Seg Neutrophils % 69.7 % (40.0-70.0) 04/03/19 03:40 Seg Neuts % (Manual) 71.0 % (40.0-70.0) H 04/01/19 05:01 Band Neutrophils % 0 % 04/01/19 05:01 Lymphocytes % (Manual) 20.0 % (13.4-35.0) 04/01/19 05:01 Reactive Lymphs % (Man) 0 % 04/01/19 05:01 Monocytes % (Manual) 7.0 % (0.0-7.3) 04/01/19 05:01 Eosinophils % (Manual) 2.0 % (0.0-4.3) 04/01/19 05:01 Basophils % (Manual) 0 % (0.0-1.8) 04/01/19 05:01 Metamyelocytes % 0 % 04/01/19 05:01 Myelocytes % 0 % 04/01/19 05:01 Promyelocytes % 0 % 04/01/19 05:01 Blast Cells % 0 % 04/01/19 05:01 Nucleated RBC % Not Reportable 04/01/19 05:01 Seg Neutrophils # 4.4 K/mm3 (1.8-7.7) 04/03/19 03:40 Seg Neutrophils # Man 4.8 K/mm3 (1.8-7.7) 04/01/19 05:01 Band Neutrophils # 0.0 K/mm3 04/01/19 05:01 Lymphocytes # (Manual) 1.4 K/mm3 (1.2-5.4) 04/01/19 05:01 Abs React Lymphs (Man) 0.0 K/mm3 04/01/19 05:01 Monocytes # (Manual) 0.5 K/mm3 (0.0-0.8) 04/01/19 05:01 Eosinophils # (Manual) 0.1 K/mm3 (0.0-0.4) 04/01/19 05:01 Basophils # (Manual) 0.0 K/mm3 (0.0-0.1) 04/01/19 05:01 Metamyelocytes # 0.0 K/mm3 04/01/19 05:01 Myelocytes # 0.0 K/mm3 04/01/19 05:01 Promyelocytes # 0.0 K/mm3 04/01/19 05:01 Blast Cells # 0.0 K/mm3 04/01/19 05:01 WBC Morphology Not Reportable 04/01/19 05:01 Hypersegmented Neuts Not Reportable 04/01/19 05:01 Hyposegmented Neuts Not Reportable 04/01/19 05:01 Hypogranular Neuts Not Reportable 04/01/19 05:01 Smudge Cells Not Reportable 04/01/19 05:01 Toxic Granulation Not Reportable 04/01/19 05:01 Toxic Vacuolation Not Reportable 04/01/19 05:01 Dohle Bodies Not Reportable 04/01/19 05:01 Pelger-Huet Anomaly Not Reportable 04/01/19 05:01 Wong Rods Not Reportable 04/01/19 05:01 Platelet Estimate Not Reportable 04/01/19 05:01 Clumped Platelets Not Reportable 04/01/19 05:01 Plt Clumps, EDTA Not Reportable 04/01/19 05:01 Large Platelets Not Reportable 04/01/19 05:01 Giant Platelets Not Reportable 04/01/19 05:01 Platelet Satelliting Not Reportable 04/01/19 05:01 Plt Morphology Comment Not Reportable 04/01/19 05:01 RBC Morphology Normal 04/01/19 05:01 Dimorphic RBCs Not Reportable 04/01/19 05:01 Polychromasia Not Reportable 04/01/19 05:01 Hypochromasia Not Reportable 04/01/19 05:01 Poikilocytosis Not Reportable 04/01/19 05:01 Anisocytosis Not Reportable 04/01/19 05:01 Microcytosis Not Reportable 04/01/19 05:01 Macrocytosis Not Reportable 04/01/19 05:01 Spherocytes Not Reportable 04/01/19 05:01 Pappenheimer Bodies Not Reportable 04/01/19 05:01 Sickle Cells Not Reportable 04/01/19 05:01 Target Cells Not Reportable 04/01/19 05:01 Tear Drop Cells Not Reportable 04/01/19 05:01 Ovalocytes Not Reportable 04/01/19 05:01 Helmet Cells Not Reportable 04/01/19 05:01 [place] Bodies Not Reportable 04/01/19 05:01 [place] Rings Not Reportable 04/01/19 05:01 [place] Cells Not Reportable 04/01/19 05:01 Bite Cells Not Reportable 04/01/19 05:01 Crenated Cell Not Reportable 04/01/19 05:01 Elliptocytes Not Reportable 04/01/19 05:01 Acanthocytes (Spur) Not Reportable 04/01/19 05:01 Rouleaux Not Reportable 04/01/19 05:01 Hemoglobin C Crystals Not Reportable 04/01/19 05:01 Schistocytes Not Reportable 04/01/19 05:01 Malaria parasites Not Reportable 04/01/19 05:01 [place] Bodies Not Reportable 04/01/19 05:01 Hem Pathologist Commnt No 04/01/19 05:01 PT 13.9 Sec. (12.2-14.9) 04/01/19 17:14 INR 1.10 (0.87-1.13) 04/01/19 17:14 APTT 74.5 Sec. (24.2-36.6) H* 03/29/19 19:20 Fibrinogen 313 mg/dl (211-480) 04/01/19 17:14 D-Dimer 4526.86 ng/mlDDU (0-234) H 04/06/19 00:06 Heparin Anti-Xa, Unfract Negative (Negative) 03/31/19 15:00 POC ABG pH 7.565 (7.35-7.45) H 04/19/19 04:35 ABG pH 7.396 pH Units (7.350-7.450) 04/03/19 05:35 POC ABG pCO2 36.2 (35-45) 04/19/19 04:35 ABG pCO2 32.2 mm Hg 04/03/19 05:35 POC ABG pO2 88 (80-105) 04/19/19 04:35 ABG pO2 97.7 mm Hg (80.0-90.0) H 04/03/19 05:35 POC ABG HCO3 32.8 (22-26 mml/L) 04/19/19 04:35 ABG HCO3 19.3 mmol/L (20.0-26.0) L 04/03/19 05:35 POC ABG Total CO2 34 (23-27mmol/L) 04/19/19 04:35 POC ABG O2 Sat 98 04/19/19 04:35 ABG O2 Saturation 97.6 % (95.0-99.0) 04/03/19 05:35 ABG O2 Content 10.9 (0.0-44) 04/03/19 05:35 POC ABG Base Excess 11 ((-2) - (+3)mmol/L) 04/19/19 04:35 ABG Base Excess -5.0 mmol/L (-2.0-3.0) L 04/03/19 05:35 ABG Hemoglobin 8.0 gm/dl (12.0-16.0) L 04/03/19 05:35 ABG Carboxyhemoglobin 2.1 % (0.0-5.0) 04/03/19 05:35 ABG Methemoglobin 0.5 % (0.0-1.5) 04/03/19 05:35 VBG pH 6.800 (7.320-7.420) L* 03/29/19 19:47 Oxyhemoglobin 95.1 % (95.0-99.0) 04/03/19 05:35 FiO2 40 % 04/19/19 04:35 Sodium 138 mmol/L (137-145) 04/22/19 03:57 Potassium 4.6 mmol/L (3.6-5.0) 04/22/19 03:57 Chloride 96.3 mmol/L (98-107) L 04/22/19 03:57 Carbon Dioxide 28 mmol/L (22-30) 04/22/19 03:57 Anion Gap 18 mmol/L 04/22/19 03:57 BUN 14 mg/dL (7-17) 04/22/19 03:57 Creatinine 0.2 mg/dL (0.7-1.2) L 04/22/19 03:57 Estimated GFR > 60 ml/min 04/22/19 03:57 BUN/Creatinine Ratio 70 % 04/22/19 03:57 Glucose 333 mg/dL (65-100) H 04/22/19 03:57 POC Glucose 207 (70-105) H 04/28/19 05:55 Lactic Acid 3.30 mmol/L (0.7-2.0) H* 03/31/19 07:50 Calcium 9.6 mg/dL (8.4-10.2) 04/22/19 03:57 Phosphorus 4.10 mg/dL (2.5-4.5) 04/09/19 16:25 Magnesium 1.70 mg/dL (1.7-2.3) 04/22/19 03:57 Iron 26 ug/dL (37-170) L 03/31/19 08:20 TIBC 193 mcg/dL (250-450) L 03/31/19 08:20 Total Bilirubin 0.20 mg/dL (0.1-1.2) 04/22/19 03:57 Direct Bilirubin 0.2 mg/dL (0-0.2) 04/02/19 07:48 Indirect Bilirubin 0.5 mg/dL 04/02/19 07:48 AST 60 units/L (5-40) H 04/22/19 03:57 ALT 31 units/L (7-56) 04/22/19 03:57 Alkaline Phosphatase 204 units/L (35-129) H 04/22/19 03:57 Total Creatine Kinase 2465 units/L (30-135) H 03/30/19 05:26 CK-MB (CK-2) 52.7 ng/mL (0.0-4.0) H 03/30/19 05:26 CK-MB (CK-2) Rel Index 2.1 (0-4) 03/30/19 05:26 Troponin T < 0.010 ng/mL (0.00-0.029) 04/06/19 05:20 C-Reactive Protein 2.40 mg/dL (0.00-1.30) H 03/30/19 12:57 Total Protein 7.6 g/dL (6.3-8.2) 04/22/19 03:57 Albumin 3.1 g/dL (3.9-5) L 04/22/19 03:57 Albumin/Globulin Ratio 0.7 % 04/22/19 03:57 Serotonin Release Assay See scanned result 03/31/19 15:00 Vitamin B12 > 2000 pg/mL (211-911) H 03/31/19 08:20 Folate > 20 ng/mL (7.3-26.0) 03/31/19 08:20 HCG, Qual Negative (Negative) 03/29/19 19:20 Urine Color Yellow (Yellow) 03/29/19 23:10 Urine Turbidity Slightly-cloudy (Clear) 03/29/19 23:10 Urine pH 6.0 (5.0-7.0) 03/29/19 23:10 Ur Specific [place] 1.021 (1.003-1.030) 03/29/19 23:10 Urine Protein 100 mg/dl mg/dL (Negative) 03/29/19 23:10 Urine Glucose (UA) >=500 mg/dL (Negative) 03/29/19 23:10 Urine Ketones 20 mg/dL (Negative) 03/29/19 23:10 Urine Blood Lg (Negative) 03/29/19 23:10 Urine Nitrite Neg (Negative) 03/29/19 23:10 Urine Bilirubin Neg (Negative) 03/29/19 23:10 Urine Urobilinogen < 2.0 mg/dL (<2.0) 03/29/19 23:10 Ur Leukocyte Esterase Neg (Negative) 03/29/19 23:10 Urine WBC (Auto) 1.0 /HPF (0.0-6.0) 03/29/19 23:10 Urine RBC (Auto) 1.0 /HPF (0.0-6.0) 03/29/19 23:10 Urine Mucus Few /HPF 03/29/19 23:10 Salicylates 0.8 mg/dL (2.8-20.0) L 03/30/19 Unknown Urine Opiates Screen Presumptive negative 03/29/19 23:10 Urine Methadone Screen Presumptive negative 03/29/19 23:10 Acetaminophen < 5.0 ug/mL (10.0-30.0) L 03/30/19 Unknown Ur Barbiturates Screen Presumptive negative 03/29/19 23:10 Ur Phencyclidine Scrn Presumptive negative 03/29/19 23:10 Ur Amphetamines Screen Presumptive negative 03/29/19 23:10 U Benzodiazepines Scrn Presumptive negative 03/29/19 23:10 Urine Cocaine Screen Presumptive negative 03/29/19 23:10 U Marijuana (THC) Screen Presumptive negative 03/29/19 23:10 Drugs of Abuse Note Disclamer 03/29/19 23:10 Heparin-induced Plt Ab Negative (Negative) 03/31/19 15:00 UF Heparin High Dose 0 % Release 03/31/19 15:00 FABIAN UFH Low Dose 0.1 0 % Release 03/31/19 15:00 FABIAN UFH Low Dose 0.5 0 % Release 03/31/19 15:00 Hepatitis A IgM Ab Non-reactive (NonReactive) 03/30/19 Unknown Hep Bs Antigen Non-reactive (Negative) 03/30/19 Unknown Hep B Core IgM Ab Non-reactive (NonReactive) 03/30/19 Unknown Hepatitis C Antibody Non-reactive (NonReactive) 03/30/19 Unknown Miscellaneous Test Flexitest 1 H 03/30/19 14:00 Blood Type O POSITIVE 03/30/19 03:30 Antibody Screen Negative 03/30/19 03:30 Crossmatch See Detail 03/30/19 03:30 Active Medications - Current Medications Current Medications: Generic Name Dose Route Start Last Admin Trade Name Freq PRN Reason Stop Dose Admin Acetaminophen 650 mg 03/29/19 23:34 04/21/19 21:02 Tylenol PO 650 mg Q4H PRN Administration Pain MILD(1-3)/Fever >100.5/WARE Lipase/Protease/Amylase 1 each 04/02/19 11:44 Pancrefranco Daniels 10,500 Unit FEEDTUBE PRN PRN For Clogged Feeding Tube Dextrose 50 ml 04/21/19 12:03 D50w (25gm) Syringe IV PRN PRN Hypoglycemia Enoxaparin Sodium 40 mg 04/14/19 10:00 04/27/19 10:57 Lovenox SUB-Q 40 mg QDAY@1000 ZAMZAM Administration Famotidine 20 mg 04/02/19 10:00 04/27/19 22:21 Pepcid PO 20 mg BID ZAMZAM Administration Fentanyl 25 mcg 04/14/19 14:00 04/26/19 14:07 Duragesic TD 25 mcg Q3D ZAMZAM Administration Glycopyrrolate 1 mg 04/22/19 20:00 04/27/19 19:47 Robinul FEEDTUBE 1 mg TID ZAMZAM Administration Hydrophilic Ointment 1 applic 03/30/19 11:24 04/22/19 08:37 Vaseline Lip Therapy TP 1 applic Q2HR PRN Administration Dry Lips Insulin Glargine 20 units 04/09/19 22:00 04/27/19 22:22 Lantus SUB-Q 20 units QHS ZAMZAM Administration Insulin Human Lispro 0 unit 04/21/19 13:00 04/28/19 06:03 Humalog SUB-Q 4 unit Q6HR ZAMZAM Administration Protocol Levetiracetam 500 mg 04/03/19 10:00 04/27/19 22:21 Keppra PO 500 mg BID ZAMZAM Administration Metoprolol Tartrate 5 mg 04/14/19 13:06 04/22/19 08:29 Lopressor IV 5 mg Q6HR PRN Administration Tachyarrhythmias Metoprolol Tartrate 25 mg 04/16/19 10:00 04/27/19 22:00 Lopressor PO 25 mg BID ZAMZAM Administration Multi-Ingred Cream/Lotion/Oil/Oint 1 applic 03/30/19 11:24 04/06/19 11:39 Artificial Tears Ophth Oint OU 1 applic Q4HR PRN Administration Dry Eye(s) Ondansetron HCl 4 mg 03/29/19 23:34 Zofran IV Q8H PRN Nausea And Vomiting Scopolamine 1 each 04/17/19 12:00 04/26/19 12:05 Transderm-Scop TD 1 each Q3D ZAMZAM Administration Simple Syrup 15 ml 04/02/19 11:44 04/24/19 06:02 Simple Syrup FEEDTUBE 15 ml PRN PRN Administration Hypoglycemia Simple Syrup 30 ml 04/02/19 11:44 Simple Syrup FEEDTUBE PRN PRN Hypoglycemia Sodium Bicarbonate 325 mg 04/02/19 11:44 Sodium Bicarbonate FEEDTUBE PRN PRN For Clogged Feeding Tube Sodium Chloride 10 ml 03/30/19 10:00 04/27/19 22:22 Sodium Chloride Flush Syringe 10 Ml IV 10 ml BID ZAMZAM Administration Sodium Chloride 10 ml 03/29/19 23:34 04/22/19 08:29 Sodium Chloride Flush Syringe 10 Ml IV 10 ml PRN PRN Administration LINE FLUSH Nutrition/Malnutrition Assess - Dietary Evaluation Nutrition/Malnutrition Findings: Nutrition Notes Start: 03/30/19 13:14 Freq: Status: Active Protocol: Document 04/25/19 09:43 RS (Rec: 04/25/19 10:30 RS [id number]) Co-Sign 04/25/19 09:43 NHALL Nutrition Notes Initial or Follow up Reassessment Current Diagnosis Acute Kidney Injury,Diabetes, Sepsis,Respiratory Failure Other Pertinent Diagnosis s/p trach & PEG, s/p cardiac arrest, DKA, ARF, Shock liver Current Diet Glucerna 1.2 at 50 ml/hr Labs/Tests POC glu 127 Pertinent Medications Reviewed Height 5 ft Weight 40.1 kg [place] Body Weight (kg) 45.45 BMI 17.2 Subjective/Other Information Glucerna running at 50 ml/hr via PEG. Tech reports pt is tolerating TF. Percent of energy/protein needs met: 100%/100% Burn Absent Trauma Absent #1 Nutrition Diagnosis Inadequate oral intake Diagnosis Progress(for reassessment Continues documentation) Is patient on ventilator? Yes Is Patient Ambulatory and/or Out of Bed No REE-([facility]-confined to bed) 1247.496 Kcal/Kg value to use for calculation 35 Approximate Energy Requirements Using 1404 kcal/Kg Calculation Used for Recommendations [facility] Additional Notes Protein: 1.2-1.5g/k-60g/ day Fluids: 1ml/kcal Nutrition Intervention Change Diet Order: Continue TF Nutrition Support: Glucerna 1.2 at 50ml/hr with 80ml water flush q4h. Kcal 1,440 Protein (gm) 72 Fluid (mL) 966 Goal #1 Meet at least 75% of energy and protein needs Follow-Up By: 05/02/19 Additional Comments F/U for stable TF rate and wt
[2019-04-28] MEDS: ROBINUL FEEDTUBE SCH ×3 (08:53→21:58)
[2019-04-28] MEDS: KEPPRA PO SCH ×2 (09:02→21:57)
[2019-04-28] MEDS: ENOXAPARIN SUB-Q SCH (09:02)
[2019-04-28] MEDS: METOPROLOL PO SCH ×2 (09:02→21:59)
[2019-04-28] MEDS: PEPCID PO SCH ×2 (09:03→21:58)
[2019-04-28] MEDS: SODIUM CHLORIDE FLUSH SYRINGE 10 ML IV SCH ×2 (09:04→21:59)
--- NOTE | 2019-04-28 11:34 | Progress Note ---
Assessment and Plan Patients condition same.Patient resting on T tube. Patient sleeping at this time. No acute respiratory distress.. Patient is on T tube, FIO2 28%. O2 saturation 96%.Patient afebrile.; and has mild leukocytosis. Patient waiting for placement. - Patient Problems (1) Cardiac arrest Current Visit: Yes Status: Acute Plan to address problem: Patient resucitated. Presently sleeping on T tube. No acute respiratory distress.; (2) Status post tracheostomy Current Visit: Yes Status: Acute Plan to address problem: Respiratory suctioning. Recommend trach care as per respiratory therapy protocol. (3) DKA, type 1 Current Visit: Yes Status: Acute Qualifiers: Diabetes mellitus complication detail: with coma Qualified Code(s): E10.11 - Type 1 diabetes mellitus with ketoacidosis with coma Plan to address problem: Management as per primary care. (4) Hypotension Current Visit: Yes Status: Acute Qualifiers: Hypotension type: unspecified hypotension type Qualified Code(s): I95.9 - Hypotension, unspecified Plan to address problem: Improved. Recent blood pressure 134/91. (5) Renal failure Current Visit: Yes Status: Acute Qualifiers: Renal failure chronicity: acute Acute renal failure type: unspecified Qualified Code(s): N17.9 - Acute kidney failure, unspecified Plan to address problem: Improved. Management as per primary care and nephrology . Subjective Date of service: 04/28/19 Principal diagnosis: Ac Hypoxemic Resp Failure; DKA; Severe sepsis with shock; ANGELICA Interval history: Patients condition same.Patient resting on T tube. Patient sleeping at this time. No acute respiratory distress.. Patient is on T tube, FIO2 28%. O2 saturation 96%.Patient afebrile.; and has mild leukocytosis. Patient waiting for placement. Objective Vital Signs - 12hr 04/27/19 04/28/19 04/28/19 23:42 00:00 05:14 Temperature 98.3 F 98.6 F Pulse Rate 116 H 122 H Respiratory 24 24 Rate Blood Pressure 114/85 122/87 O2 Sat by Pulse 93 92 Oximetry O2 Sat by Pulse 98 Oximetry [ Assessment] 04/28/19 04/28/19 04/28/19 07:00 08:08 09:02 Temperature Pulse Rate 122 H Respiratory Rate Blood Pressure O2 Sat by Pulse 98 96 Oximetry O2 Sat by Pulse 98 Oximetry [ Assessment] Constitutional: no acute distress, asleep, other (young CF normocephalic and atraumatic s/p tracheostomy to ATP, copious secretions) Eyes: non-icteric ENT: oropharynx moist, other Neck: supple, no lymphadenopathy, no JVD Effort: mildly labored Ascultation: Bilateral: diminished breath sounds, rhonchi Percussion: Bilateral: not dull Cardiovascular: regular rate and rhythm Gastrointestinal: normoactive bowel sounds, soft, non-tender, non-distended, other (PEG tube) Integumentary: erythema (noted on upper extremity) Extremities: no cyanosis, no edema, pink and warm, pulses normal, no ischemia or petechiae Neurologic: unable to assess (awake, alert, not obeying commands) Psychiatric: other (unable to assess) CBC and BMP: 04/22/19 03:57 04/22/19 03:57 ABG, PT/INR, D-dimer: ABG POC ABG pH 7.565 (7.35-7.45) H 04/19/19 04:35 ABG pH 7.396 pH Units (7.350-7.450) 04/03/19 05:35 POC ABG pCO2 36.2 (35-45) 04/19/19 04:35 ABG pCO2 32.2 mm Hg 04/03/19 05:35 POC ABG pO2 88 (80-105) 04/19/19 04:35 ABG pO2 97.7 mm Hg (80.0-90.0) H 04/03/19 05:35 POC ABG HCO3 32.8 (22-26 mml/L) 04/19/19 04:35 POC ABG Total CO2 34 (23-27mmol/L) 04/19/19 04:35 POC ABG O2 Sat 98 04/19/19 04:35 ABG O2 Saturation 97.6 % (95.0-99.0) 04/03/19 05:35 PT/INR, D-dimer PT 13.9 Sec. (12.2-14.9) 04/01/19 17:14 INR 1.10 (0.87-1.13) 04/01/19 17:14 D-Dimer 4526.86 ng/mlDDU (0-234) H 04/06/19 00:06 Abnormal lab findings: Abnormal Labs 03/29/19 03/29/19 03/29/19 19:11 19:20 19:20 WBC 26.7 H RBC 2.52 L Hgb 8.1 L Hct MCV 148 H MCH MCHC 22 L RDW 18.5 H Plt Count [place] % (Auto) Lymph # Seg Neuts % (Manual) 82.0 H Lymphocytes % (Manual) 7.0 L Nucleated RBC % Seg Neutrophils # Man 21.9 H Lymphocytes # (Manual) Monocytes # (Manual) 1.9 H PT 21.8 H INR 1.95 H APTT 74.5 H* D-Dimer POC ABG pH ABG pH POC ABG pCO2 POC ABG pO2 ABG pO2 ABG HCO3 ABG O2 Saturation ABG Base Excess ABG Hemoglobin VBG pH Oxyhemoglobin Sodium Potassium Chloride Carbon Dioxide BUN Creatinine Glucose POC Glucose > 500 H Lactic Acid Calcium Phosphorus Magnesium Iron TIBC Direct Bilirubin AST ALT Alkaline Phosphatase Total Creatine Kinase CK-MB (CK-2) C-Reactive Protein Total Protein Albumin Vitamin B12 Salicylates Acetaminophen Miscellaneous Test Crossmatch 03/29/19 03/29/19 03/29/19 19:20 19:47 20:59 WBC RBC Hgb Hct MCV MCH MCHC RDW Plt Count [place] % (Auto) Lymph # Seg Neuts % (Manual) Lymphocytes % (Manual) Nucleated RBC % Seg Neutrophils # Man Lymphocytes # (Manual) Monocytes # (Manual) PT INR APTT D-Dimer POC ABG pH 6.892 L ABG pH POC ABG pCO2 POC ABG pO2 236 H ABG pO2 ABG HCO3 ABG O2 Saturation ABG Base Excess ABG Hemoglobin VBG pH 6.800 L* Oxyhemoglobin Sodium 118 L* Potassium 9.0 H* Chloride 64.5 L Carbon Dioxide 7 L* BUN 53 H Creatinine 2.1 H Glucose 2196 H* POC Glucose Lactic Acid Calcium 12.4 H* Phosphorus Magnesium Iron TIBC Direct Bilirubin AST 3900 H ALT 1034 H Alkaline Phosphatase 316 H Total Creatine Kinase CK-MB (CK-2) C-Reactive Protein Total Protein 5.1 L Albumin 2.8 L Vitamin B12 Salicylates Acetaminophen Miscellaneous Test Crossmatch 03/29/19 03/29/19 03/29/19 22:45 22:45 22:45 WBC RBC Hgb Hct MCV MCH MCHC RDW Plt Count [place] % (Auto) Lymph # Seg Neuts % (Manual) Lymphocytes % (Manual) Nucleated RBC % Seg Neutrophils # Man Lymphocytes # (Manual) Monocytes # (Manual) PT INR APTT D-Dimer POC ABG pH ABG pH POC ABG pCO2 POC ABG pO2 ABG pO2 ABG HCO3 ABG O2 Saturation ABG Base Excess ABG Hemoglobin VBG pH Oxyhemoglobin Sodium 132 L D Potassium 7.0 H* Chloride 84.3 L Carbon Dioxide 3 L* BUN 48 H Creatinine 1.8 H Glucose 1779 H* POC Glucose Lactic Acid Calcium Phosphorus 21.70 H Magnesium 4.70 H Iron TIBC Direct Bilirubin AST ALT Alkaline Phosphatase Total Creatine Kinase 363 H CK-MB (CK-2) C-Reactive Protein Total Protein Albumin Vitamin B12 Salicylates Acetaminophen Miscellaneous Test Crossmatch 03/29/19 03/29/19 03/30/19 Unknown Unknown 00:11 WBC RBC Hgb Hct MCV MCH MCHC RDW Plt Count [place] % (Auto) Lymph # Seg Neuts % (Manual) Lymphocytes % (Manual) Nucleated RBC % Seg Neutrophils # Man Lymphocytes # (Manual) Monocytes # (Manual) PT INR APTT D-Dimer POC ABG pH ABG pH POC ABG pCO2 POC ABG pO2 ABG pO2 ABG HCO3 ABG O2 Saturation ABG Base Excess ABG Hemoglobin VBG pH Oxyhemoglobin Sodium 122 L Potassium 7.9 H* 6.4 H* Chloride 75.3 L 89.7 L Carbon Dioxide 3 L* 12 L D BUN 52 H 46 H Creatinine 2.0 H 1.7 H Glucose 2043 H* 1591 H* POC Glucose Lactic Acid Calcium 7.8 L Phosphorus 19.30 H Magnesium 3.90 H Iron TIBC Direct Bilirubin AST ALT Alkaline Phosphatase Total Creatine Kinase CK-MB (CK-2) C-Reactive Protein Total Protein Albumin Vitamin B12 Salicylates Acetaminophen Miscellaneous Test Crossmatch 03/30/19 03/30/19 03/30/19 00:11 02:14 02:14 WBC RBC Hgb Hct MCV MCH MCHC RDW Plt Count [place] % (Auto) Lymph # Seg Neuts % (Manual) Lymphocytes % (Manual) Nucleated RBC % Seg Neutrophils # Man Lymphocytes # (Manual) Monocytes # (Manual) PT INR APTT D-Dimer POC ABG pH ABG pH POC ABG pCO2 POC ABG pO2 ABG pO2 ABG HCO3 ABG O2 Saturation ABG Base Excess ABG Hemoglobin VBG pH Oxyhemoglobin Sodium Potassium Chloride Carbon Dioxide 9 L* BUN 45 H Creatinine 1.7 H Glucose 1155 H* POC Glucose Lactic Acid Calcium 7.9 L Phosphorus 10.90 H D 5.30 H D Magnesium 3.10 H 2.90 H Iron TIBC Direct Bilirubin AST ALT Alkaline Phosphatase Total Creatine Kinase CK-MB (CK-2) C-Reactive Protein Total Protein Albumin Vitamin B12 Salicylates Acetaminophen Miscellaneous Test Crossmatch 03/30/19 03/30/19 03/30/19 03:15 03:30 04:23 WBC 18.0 H RBC 2.31 L Hgb 7.3 L Hct 23.8 L D MCV 103 H MCH MCHC RDW 17.1 H Plt Count [place] % (Auto) Lymph # Seg Neuts % (Manual) 79.0 H Lymphocytes % (Manual) Nucleated RBC % Seg Neutrophils # Man 14.2 H Lymphocytes # (Manual) Monocytes # (Manual) PT INR APTT D-Dimer POC ABG pH 7.251 L ABG pH POC ABG pCO2 POC ABG pO2 156 H ABG pO2 ABG HCO3 ABG O2 Saturation ABG Base Excess ABG Hemoglobin VBG pH Oxyhemoglobin Sodium Potassium Chloride Carbon Dioxide BUN Creatinine Glucose POC Glucose Lactic Acid Calcium Phosphorus Magnesium Iron TIBC Direct Bilirubin AST ALT Alkaline Phosphatase Total Creatine Kinase CK-MB (CK-2) C-Reactive Protein Total Protein Albumin Vitamin B12 Salicylates Acetaminophen Miscellaneous Test Crossmatch See Detail 03/30/19 03/30/19 03/30/19 05:26 05:26 10:38 WBC RBC Hgb Hct MCV MCH MCHC RDW Plt Count [place] % (Auto) Lymph # Seg Neuts % (Manual) Lymphocytes % (Manual) Nucleated RBC % Seg Neutrophils # Man Lymphocytes # (Manual) Monocytes # (Manual) PT INR APTT D-Dimer POC ABG pH ABG pH POC ABG pCO2 POC ABG pO2 ABG pO2 ABG HCO3 ABG O2 Saturation ABG Base Excess ABG Hemoglobin VBG pH Oxyhemoglobin Sodium 158 H D Potassium 3.5 L Chloride 109.3 H Carbon Dioxide 19 L D BUN 40 H Creatinine 1.5 H Glucose 760 H* POC Glucose 380 H Lactic Acid Calcium 7.3 L Phosphorus Magnesium 2.60 H Iron TIBC Direct [place] 26993 H ALT 2156 H Alkaline Phosphatase 271 H Total Creatine Kinase 2465 H CK-MB (CK-2) 52.7 H C-Reactive Protein Total Protein 4.5 L Albumin 2.4 L Vitamin B12 Salicylates Acetaminophen Miscellaneous Test Crossmatch 03/30/19 03/30/19 03/30/19 11:08 12:25 12:57 WBC RBC Hgb Hct MCV MCH MCHC RDW Plt Count [place] % (Auto) Lymph # Seg Neuts % (Manual) Lymphocytes % (Manual) Nucleated RBC % Seg Neutrophils # Man Lymphocytes # (Manual) Monocytes # (Manual) PT INR APTT D-Dimer POC ABG pH ABG pH POC ABG pCO2 POC ABG pO2 ABG pO2 ABG HCO3 ABG O2 Saturation ABG Base Excess ABG Hemoglobin VBG pH Oxyhemoglobin Sodium 156 H Potassium 3.2 L Chloride 116.4 H Carbon Dioxide 21 L BUN 37 H Creatinine Glucose 162 H POC Glucose 263 H 196 H Lactic Acid Calcium 7.2 L Phosphorus Magnesium Iron TIBC Direct Bilirubin AST ALT Alkaline Phosphatase Total Creatine Kinase CK-MB (CK-2) C-Reactive Protein Total Protein Albumin Vitamin B12 Salicylates Acetaminophen Miscellaneous Test Crossmatch 03/30/19 03/30/19 03/30/19 12:57 12:57 12:57 WBC RBC Hgb Hct MCV MCH MCHC RDW Plt Count [place] % (Auto) Lymph # Seg Neuts % (Manual) Lymphocytes % (Manual) Nucleated RBC % Seg Neutrophils # Man Lymphocytes # (Manual) Monocytes # (Manual) PT 21.0 H INR 1.86 H APTT D-Dimer POC ABG pH ABG pH POC ABG pCO2 POC ABG pO2 ABG pO2 ABG HCO3 ABG O2 Saturation ABG Base Excess ABG Hemoglobin VBG pH Oxyhemoglobin Sodium Potassium Chloride Carbon Dioxide BUN Creatinine Glucose POC Glucose Lactic Acid 9.00 H* Calcium Phosphorus Magnesium Iron TIBC Direct Bilirubin AST ALT Alkaline Phosphatase Total Creatine Kinase CK-MB (CK-2) C-Reactive Protein 2.40 H Total Protein Albumin Vitamin B12 Salicylates Acetaminophen Miscellaneous Test Crossmatch 03/30/19 03/30/19 03/30/19 13:23 14:00 14:47 WBC RBC Hgb Hct MCV MCH MCHC RDW Plt Count [place] % (Auto) Lymph # Seg Neuts % (Manual) Lymphocytes % (Manual) Nucleated RBC % Seg Neutrophils # Man Lymphocytes # (Manual) Monocytes # (Manual) PT INR APTT D-Dimer POC ABG pH ABG pH POC ABG pCO2 POC ABG pO2 ABG pO2 ABG HCO3 ABG O2 Saturation ABG Base Excess ABG Hemoglobin VBG pH Oxyhemoglobin Sodium Potassium Chloride Carbon Dioxide BUN Creatinine Glucose POC Glucose 176 H 245 H Lactic Acid Calcium Phosphorus Magnesium Iron TIBC Direct Bilirubin AST ALT Alkaline Phosphatase Total Creatine Kinase CK-MB (CK-2) C-Reactive Protein Total Protein Albumin Vitamin B12 Salicylates Acetaminophen Miscellaneous Test Flexitest 1 H Crossmatch 03/30/19 03/30/19 03/30/19 16:11 17:11 17:46 WBC RBC Hgb Hct MCV MCH MCHC RDW Plt Count [place] % (Auto) Lymph # Seg Neuts % (Manual) Lymphocytes % (Manual) Nucleated RBC % Seg Neutrophils # Man Lymphocytes # (Manual) Monocytes # (Manual) PT INR APTT D-Dimer POC ABG pH ABG pH POC ABG pCO2 POC ABG pO2 ABG pO2 ABG HCO3 ABG O2 Saturation ABG Base Excess ABG Hemoglobin VBG pH Oxyhemoglobin Sodium Potassium Chloride Carbon Dioxide BUN Creatinine Glucose POC Glucose 181 H 167 H 125 H Lactic Acid Calcium Phosphorus Magnesium Iron TIBC Direct Bilirubin AST ALT Alkaline Phosphatase Total Creatine Kinase CK-MB (CK-2) C-Reactive Protein Total Protein Albumin Vitamin B12 Salicylates Acetaminophen Miscellaneous Test Crossmatch 03/30/19 03/30/19 03/30/19 18:59 21:31 22:19 WBC RBC Hgb Hct MCV MCH MCHC RDW Plt Count [place] % (Auto) Lymph # Seg Neuts % (Manual) Lymphocytes % (Manual) Nucleated RBC % Seg Neutrophils # Man Lymphocytes # (Manual) Monocytes # (Manual) PT INR APTT D-Dimer POC ABG pH ABG pH POC ABG pCO2 POC ABG pO2 ABG pO2 ABG HCO3 ABG O2 Saturation ABG Base Excess ABG Hemoglobin VBG pH Oxyhemoglobin Sodium Potassium Chloride Carbon Dioxide BUN Creatinine Glucose POC Glucose 140 H 166 H 115 H Lactic Acid Calcium Phosphorus Magnesium Iron TIBC Direct Bilirubin AST ALT Alkaline Phosphatase Total Creatine Kinase CK-MB (CK-2) C-Reactive Protein Total Protein Albumin Vitamin B12 Salicylates Acetaminophen Miscellaneous Test Crossmatch 03/30/19 03/30/19 03/30/19 23:13 Unknown Unknown WBC RBC Hgb Hct MCV MCH MCHC RDW Plt Count [place] % (Auto) Lymph # Seg Neuts % (Manual) Lymphocytes % (Manual) Nucleated RBC % Seg Neutrophils # Man Lymphocytes # (Manual) Monocytes # (Manual) PT INR APTT D-Dimer POC ABG pH ABG pH POC ABG pCO2 POC ABG pO2 ABG pO2 47.8 L ABG HCO3 18.8 L ABG O2 Saturation 83.8 L ABG Base Excess -5.4 L ABG Hemoglobin 6.8 L VBG pH Oxyhemoglobin 81.8 L Sodium 157 H Potassium 3.3 L Chloride 117.9 H Carbon Dioxide 20 L BUN 36 H Creatinine Glucose 150 H POC Glucose 112 H Lactic Acid Calcium 7.2 L Phosphorus Magnesium Iron TIBC Direct Bilirubin AST ALT Alkaline Phosphatase Total Creatine Kinase CK-MB (CK-2) C-Reactive Protein Total Protein Albumin Vitamin B12 Salicylates Acetaminophen Miscellaneous Test Crossmatch 03/30/19 03/30/19 03/31/19 Unknown Unknown 00:03 WBC RBC Hgb Hct MCV MCH MCHC RDW Plt Count [place] % (Auto) Lymph # Seg Neuts % (Manual) Lymphocytes % (Manual) Nucleated RBC % Seg Neutrophils # Man Lymphocytes # (Manual) Monocytes # (Manual) PT INR APTT D-Dimer POC ABG pH ABG pH POC ABG pCO2 POC ABG pO2 ABG pO2 ABG HCO3 ABG O2 Saturation ABG Base Excess ABG Hemoglobin VBG pH Oxyhemoglobin Sodium Potassium Chloride Carbon Dioxide BUN Creatinine Glucose POC Glucose 188 H Lactic Acid Calcium Phosphorus Magnesium Iron TIBC Direct Bilirubin AST ALT Alkaline Phosphatase Total Creatine Kinase CK-MB (CK-2) C-Reactive Protein Total Protein Albumin Vitamin B12 Salicylates 0.8 L Acetaminophen < 5.0 L Miscellaneous Test Crossmatch 03/31/19 03/31/19 03/31/19 01:18 03:07 03:50 WBC RBC Hgb Hct MCV MCH MCHC RDW Plt Count [place] % (Auto) Lymph # Seg Neuts % (Manual) Lymphocytes % (Manual) Nucleated RBC % Seg Neutrophils # Man Lymphocytes # (Manual) Monocytes # (Manual) PT INR APTT D-Dimer POC ABG pH ABG pH 7.525 H POC ABG pCO2 POC ABG pO2 ABG pO2 178.0 H ABG HCO3 19.5 L ABG O2 Saturation 99.2 H ABG Base Excess -3.1 L ABG Hemoglobin 5.8 L VBG pH Oxyhemoglobin Sodium Potassium Chloride Carbon Dioxide BUN Creatinine Glucose POC Glucose 114 H 107 H Lactic Acid Calcium Phosphorus Magnesium Iron TIBC Direct Bilirubin AST ALT Alkaline Phosphatase Total Creatine Kinase CK-MB (CK-2) C-Reactive Protein Total Protein Albumin Vitamin B12 Salicylates Acetaminophen Miscellaneous Test Crossmatch 03/31/19 03/31/19 03/31/19 03:51 03:51 04:05 WBC RBC 1.89 L Hgb 6.1 L Hct 18.2 L* MCV MCH MCHC RDW 17.7 H Plt Count 89 L [place] % (Auto) Lymph # Seg Neuts % (Manual) 86.0 H Lymphocytes % (Manual) 10.0 L Nucleated RBC % 1.0 H Seg Neutrophils # Man Lymphocytes # (Manual) 0.7 L Monocytes # (Manual) PT INR APTT D-Dimer POC ABG pH ABG pH POC ABG pCO2 POC ABG pO2 ABG pO2 ABG HCO3 ABG O2 Saturation ABG Base Excess ABG Hemoglobin VBG pH Oxyhemoglobin Sodium 151 H Potassium 3.2 L Chloride 119.4 H Carbon Dioxide 17 L BUN 35 H Creatinine Glucose 139 H POC Glucose 153 H Lactic Acid Calcium 7.1 L Phosphorus Magnesium Iron TIBC Direct Bilirubin AST ALT Alkaline Phosphatase Total Creatine Kinase CK-MB (CK-2) C-Reactive Protein Total Protein Albumin Vitamin B12 Salicylates Acetaminophen Miscellaneous Test Crossmatch 03/31/19 03/31/19 03/31/19 05:05 05:35 06:23 WBC RBC Hgb Hct MCV MCH MCHC RDW Plt Count [place] % (Auto) Lymph # Seg Neuts % (Manual) Lymphocytes % (Manual) Nucleated RBC % Seg Neutrophils # Man Lymphocytes # (Manual) Monocytes # (Manual) PT INR APTT D-Dimer POC ABG pH ABG pH POC ABG pCO2 POC ABG pO2 ABG pO2 ABG HCO3 ABG O2 Saturation ABG Base Excess ABG Hemoglobin VBG pH Oxyhemoglobin Sodium Potassium Chloride Carbon Dioxide BUN Creatinine Glucose POC Glucose 176 H 133 H Lactic Acid 3.20 H* Calcium Phosphorus Magnesium Iron TIBC Direct Bilirubin AST ALT Alkaline Phosphatase Total Creatine Kinase CK-MB (CK-2) C-Reactive Protein Total Protein Albumin Vitamin B12 Salicylates Acetaminophen Miscellaneous Test Crossmatch 03/31/19 03/31/19 03/31/19 07:50 07:51 08:20 WBC RBC Hgb Hct MCV MCH MCHC RDW Plt Count [place] % (Auto) Lymph # Seg Neuts % (Manual) Lymphocytes % (Manual) Nucleated RBC % Seg Neutrophils # Man Lymphocytes # (Manual) Monocytes # (Manual) PT INR APTT D-Dimer POC ABG pH ABG pH POC ABG pCO2 POC ABG pO2 ABG pO2 ABG HCO3 ABG O2 Saturation ABG Base Excess ABG Hemoglobin VBG pH Oxyhemoglobin Sodium Potassium Chloride Carbon Dioxide BUN Creatinine Glucose POC Glucose 135 H Lactic Acid 3.30 H* Calcium Phosphorus Magnesium Iron 26 L TIBC 193 L Direct Bilirubin AST ALT Alkaline Phosphatase Total Creatine Kinase CK-MB (CK-2) C-Reactive Protein Total Protein Albumin Vitamin B12 Salicylates Acetaminophen Miscellaneous Test Crossmatch 03/31/19 03/31/19 03/31/19 08:20 08:20 09:06 WBC RBC Hgb Hct MCV MCH MCHC RDW Plt Count [place] % (Auto) Lymph # Seg Neuts % (Manual) Lymphocytes % (Manual) Nucleated RBC % Seg Neutrophils # Man Lymphocytes # (Manual) Monocytes # (Manual) PT INR APTT D-Dimer POC ABG pH ABG pH POC ABG pCO2 POC ABG pO2 ABG pO2 ABG HCO3 ABG O2 Saturation ABG Base Excess ABG Hemoglobin VBG pH Oxyhemoglobin Sodium 153 H Potassium 3.0 L Chloride 118.9 H Carbon Dioxide 18 L BUN 37 H Creatinine Glucose 132 H POC Glucose 145 H Lactic Acid Calcium 7.1 L Phosphorus Magnesium Iron TIBC Direct Bilirubin AST ALT Alkaline Phosphatase Total Creatine Kinase CK-MB (CK-2) C-Reactive Protein Total Protein Albumin Vitamin B12 > 2000 H Salicylates Acetaminophen Miscellaneous Test Crossmatch 03/31/19 03/31/19 03/31/19 10:47 11:49 13:04 WBC RBC Hgb Hct MCV MCH MCHC RDW Plt Count [place] % (Auto) Lymph # Seg Neuts % (Manual) Lymphocytes % (Manual) Nucleated RBC % Seg Neutrophils # Man Lymphocytes # (Manual) Monocytes # (Manual) PT INR APTT D-Dimer POC ABG pH ABG pH POC ABG pCO2 POC ABG pO2 ABG pO2 ABG HCO3 ABG O2 Saturation ABG Base Excess ABG Hemoglobin VBG pH Oxyhemoglobin Sodium Potassium Chloride Carbon Dioxide BUN Creatinine Glucose POC Glucose 153 H 174 H 214 H Lactic Acid Calcium Phosphorus Magnesium Iron TIBC Direct Bilirubin AST ALT Alkaline Phosphatase Total Creatine Kinase CK-MB (CK-2) C-Reactive Protein Total Protein Albumin Vitamin B12 Salicylates Acetaminophen Miscellaneous Test Crossmatch 03/31/19 03/31/19 03/31/19 13:42 15:08 16:08 WBC RBC Hgb Hct MCV MCH MCHC RDW Plt Count [place] % (Auto) Lymph # Seg Neuts % (Manual) Lymphocytes % (Manual) Nucleated RBC % Seg Neutrophils # Man Lymphocytes # (Manual) Monocytes # (Manual) PT INR APTT D-Dimer POC ABG pH ABG pH POC ABG pCO2 POC ABG pO2 ABG pO2 ABG HCO3 ABG O2 Saturation ABG Base Excess ABG Hemoglobin VBG pH Oxyhemoglobin Sodium Potassium Chloride Carbon Dioxide BUN Creatinine Glucose POC Glucose 186 H 136 H 150 H Lactic Acid Calcium Phosphorus Magnesium Iron TIBC Direct Bilirubin AST ALT Alkaline Phosphatase Total Creatine Kinase CK-MB (CK-2) C-Reactive Protein Total Protein Albumin Vitamin B12 Salicylates Acetaminophen Miscellaneous Test Crossmatch 03/31/19 03/31/19 03/31/19 17:11 17:30 17:30 WBC RBC Hgb 7.7 L Hct 23.0 L MCV MCH MCHC RDW Plt Count [place] % (Auto) Lymph # Seg Neuts % (Manual) Lymphocytes % (Manual) Nucleated RBC % Seg Neutrophils # Man Lymphocytes # (Manual) Monocytes # (Manual) PT INR APTT D-Dimer POC ABG pH ABG pH POC ABG pCO2 POC ABG pO2 ABG pO2 ABG HCO3 ABG O2 Saturation ABG Base Excess ABG Hemoglobin VBG pH Oxyhemoglobin Sodium 153 H Potassium 3.5 L Chloride 119.3 H Carbon Dioxide 20 L BUN 34 H Creatinine Glucose 162 H POC Glucose 140 H Lactic Acid Calcium 7.6 L Phosphorus Magnesium Iron TIBC Direct Bilirubin AST ALT Alkaline Phosphatase Total Creatine Kinase CK-MB (CK-2) C-Reactive Protein Total Protein Albumin Vitamin B12 Salicylates Acetaminophen Miscellaneous Test Crossmatch 03/31/19 03/31/19 03/31/19 17:59 18:58 20:28 WBC RBC Hgb Hct MCV MCH MCHC RDW Plt Count [place] % (Auto) Lymph # Seg Neuts % (Manual) Lymphocytes % (Manual) Nucleated RBC % Seg Neutrophils # Man Lymphocytes # (Manual) Monocytes # (Manual) PT INR APTT D-Dimer POC ABG pH ABG pH POC ABG pCO2 POC ABG pO2 ABG pO2 ABG HCO3 ABG O2 Saturation ABG Base Excess ABG Hemoglobin VBG pH Oxyhemoglobin Sodium Potassium Chloride Carbon Dioxide BUN Creatinine Glucose POC Glucose 156 H 152 H 138 H Lactic Acid Calcium Phosphorus Magnesium Iron TIBC Direct Bilirubin AST ALT Alkaline Phosphatase Total Creatine Kinase CK-MB (CK-2) C-Reactive Protein Total Protein Albumin Vitamin B12 Salicylates Acetaminophen Miscellaneous Test Crossmatch 03/31/19 03/31/19 03/31/19 21:09 22:15 23:10 WBC RBC Hgb Hct MCV MCH MCHC RDW Plt Count [place] % (Auto) Lymph # Seg Neuts % (Manual) Lymphocytes % (Manual) Nucleated RBC % Seg Neutrophils # Man Lymphocytes # (Manual) Monocytes # (Manual) PT INR APTT D-Dimer POC ABG pH ABG pH POC ABG pCO2 POC ABG pO2 ABG pO2 ABG HCO3 ABG O2 Saturation ABG Base Excess ABG Hemoglobin VBG pH Oxyhemoglobin Sodium Potassium Chloride Carbon Dioxide BUN Creatinine Glucose POC Glucose 136 H 137 H 148 H Lactic Acid Calcium Phosphorus Magnesium Iron TIBC Direct Bilirubin AST ALT Alkaline Phosphatase Total Creatine Kinase CK-MB (CK-2) C-Reactive Protein Total Protein Albumin Vitamin B12 Salicylates Acetaminophen Miscellaneous Test Crossmatch 04/01/19 04/01/19 04/01/19 00:05 01:17 02:11 WBC RBC Hgb Hct MCV MCH MCHC RDW Plt Count [place] % (Auto) Lymph # Seg Neuts % (Manual) Lymphocytes % (Manual) Nucleated RBC % Seg Neutrophils # Man Lymphocytes # (Manual) Monocytes # (Manual) PT INR APTT D-Dimer POC ABG pH ABG pH POC ABG pCO2 POC ABG pO2 ABG pO2 ABG HCO3 ABG O2 Saturation ABG Base Excess ABG Hemoglobin VBG pH Oxyhemoglobin Sodium Potassium Chloride Carbon Dioxide BUN Creatinine Glucose POC Glucose 143 H 151 H 155 H Lactic Acid Calcium Phosphorus Magnesium Iron TIBC Direct Bilirubin AST ALT Alkaline Phosphatase Total Creatine Kinase CK-MB (CK-2) C-Reactive Protein Total Protein Albumin Vitamin B12 Salicylates Acetaminophen Miscellaneous Test Crossmatch 04/01/19 04/01/19 04/01/19 03:12 04:03 04:16 WBC RBC Hgb Hct MCV MCH MCHC RDW Plt Count [place] % (Auto) Lymph # Seg Neuts % (Manual) Lymphocytes % (Manual) Nucleated RBC % Seg Neutrophils # Man Lymphocytes # (Manual) Monocytes # (Manual) PT INR APTT D-Dimer POC ABG pH ABG pH POC ABG pCO2 POC ABG pO2 ABG pO2 ABG HCO3 ABG O2 Saturation ABG Base Excess ABG Hemoglobin VBG pH Oxyhemoglobin Sodium Potassium Chloride Carbon Dioxide BUN Creatinine Glucose POC Glucose 140 H 143 H 142 H Lactic Acid Calcium Phosphorus Magnesium Iron TIBC Direct Bilirubin AST ALT Alkaline Phosphatase Total Creatine Kinase CK-MB (CK-2) C-Reactive Protein Total Protein Albumin Vitamin B12 Salicylates Acetaminophen Miscellaneous Test Crossmatch 04/01/19 04/01/19 04/01/19 05:01 05:01 05:08 WBC RBC 2.05 L Hgb 6.8 L Hct 20.5 L MCV 100 H MCH 33 H MCHC RDW 17.7 H Plt Count 53 L [place] % (Auto) Lymph # Seg Neuts % (Manual) 71.0 H Lymphocytes % (Manual) Nucleated RBC % Seg Neutrophils # Man Lymphocytes # (Manual) Monocytes # (Manual) PT INR APTT D-Dimer POC ABG pH ABG pH POC ABG pCO2 POC ABG pO2 ABG pO2 ABG HCO3 ABG O2 Saturation ABG Base Excess ABG Hemoglobin VBG pH Oxyhemoglobin Sodium Potassium Chloride Carbon Dioxide BUN Creatinine Glucose POC Glucose 119 H Lactic Acid Calcium Phosphorus Magnesium Iron TIBC Direct Bilirubin 0.3 H AST 4601 H ALT 1542 H Alkaline Phosphatase 185 H Total Creatine Kinase CK-MB (CK-2) C-Reactive Protein Total Protein 3.8 L Albumin 1.6 L Vitamin B12 Salicylates Acetaminophen Miscellaneous Test Crossmatch 04/01/19 04/01/19 04/01/19 05:23 06:37 08:15 WBC RBC Hgb Hct MCV MCH MCHC RDW Plt Count [place] % (Auto) Lymph # Seg Neuts % (Manual) Lymphocytes % (Manual) Nucleated RBC % Seg Neutrophils # Man Lymphocytes # (Manual) Monocytes # (Manual) PT INR APTT D-Dimer POC ABG pH ABG pH POC ABG pCO2 POC ABG pO2 ABG pO2 ABG HCO3 ABG O2 Saturation ABG Base Excess ABG Hemoglobin VBG pH Oxyhemoglobin Sodium Potassium Chloride Carbon Dioxide BUN Creatinine Glucose POC Glucose 115 H 124 H 138 H Lactic Acid Calcium Phosphorus Magnesium Iron TIBC Direct Bilirubin AST ALT Alkaline Phosphatase Total Creatine Kinase CK-MB (CK-2) C-Reactive Protein Total Protein Albumin Vitamin B12 Salicylates Acetaminophen Miscellaneous Test Crossmatch 04/01/19 04/01/19 04/01/19 09:50 10:10 10:31 WBC RBC Hgb 6.5 L Hct 19.2 L* MCV MCH MCHC RDW Plt Count [place] % (Auto) Lymph # Seg Neuts % (Manual) Lymphocytes % (Manual) Nucleated RBC % Seg Neutrophils # Man Lymphocytes # (Manual) Monocytes # (Manual) PT INR APTT D-Dimer POC ABG pH ABG pH POC ABG pCO2 POC ABG pO2 ABG pO2 ABG HCO3 ABG O2 Saturation ABG Base Excess ABG Hemoglobin VBG pH Oxyhemoglobin Sodium 149 H Potassium 3.5 L Chloride 119.9 H Carbon Dioxide 21 L BUN 33 H Creatinine 0.5 L Glucose 142 H POC Glucose 185 H Lactic Acid Calcium 7.3 L Phosphorus Magnesium Iron TIBC Direct Bilirubin AST 3686 H ALT 1440 H Alkaline Phosphatase 185 H Total Creatine Kinase CK-MB (CK-2) C-Reactive Protein Total Protein 3.7 L Albumin 1.8 L Vitamin B12 Salicylates Acetaminophen Miscellaneous Test Crossmatch 04/01/19 04/01/19 04/01/19 11:35 13:05 14:35 WBC RBC Hgb Hct MCV MCH MCHC RDW Plt Count [place] % (Auto) Lymph # Seg Neuts % (Manual) Lymphocytes % (Manual) Nucleated RBC % Seg Neutrophils # Man Lymphocytes # (Manual) Monocytes # (Manual) PT INR APTT D-Dimer POC ABG pH ABG pH POC ABG pCO2 POC ABG pO2 ABG pO2 ABG HCO3 ABG O2 Saturation ABG Base Excess ABG Hemoglobin VBG pH Oxyhemoglobin Sodium Potassium Chloride Carbon Dioxide BUN Creatinine Glucose POC Glucose 201 H 169 H 134 H Lactic Acid Calcium Phosphorus Magnesium Iron TIBC Direct Bilirubin AST ALT Alkaline Phosphatase Total Creatine Kinase CK-MB (CK-2) C-Reactive Protein Total Protein Albumin Vitamin B12 Salicylates Acetaminophen Miscellaneous Test Crossmatch 04/01/19 04/01/19 04/01/19 17:13 17:14 18:30 WBC RBC Hgb Hct MCV MCH MCHC RDW Plt Count [place] % (Auto) Lymph # Seg Neuts % (Manual) Lymphocytes % (Manual) Nucleated RBC % Seg Neutrophils # Man Lymphocytes # (Manual) Monocytes # (Manual) PT INR APTT D-Dimer 5203.68 H POC ABG pH ABG pH POC ABG pCO2 POC ABG pO2 ABG pO2 ABG HCO3 ABG O2 Saturation ABG Base Excess ABG Hemoglobin VBG pH Oxyhemoglobin Sodium Potassium Chloride Carbon Dioxide BUN Creatinine Glucose POC Glucose 69 L 128 H Lactic Acid Calcium Phosphorus Magnesium Iron TIBC Direct Bilirubin AST ALT Alkaline Phosphatase Total Creatine Kinase CK-MB (CK-2) C-Reactive Protein Total Protein Albumin Vitamin B12 Salicylates Acetaminophen Miscellaneous Test Crossmatch 04/01/19 04/01/19 04/02/19 22:50 Unknown 03:40 WBC RBC Hgb Hct MCV MCH MCHC RDW Plt Count [place] % (Auto) Lymph # Seg Neuts % (Manual) Lymphocytes % (Manual) Nucleated RBC % Seg Neutrophils # Man Lymphocytes # (Manual) Monocytes # (Manual) PT INR APTT D-Dimer POC ABG pH ABG pH POC ABG pCO2 POC ABG pO2 ABG pO2 78.3 L 142.8 H ABG HCO3 15.5 L ABG O2 Saturation ABG Base Excess -3.5 L -8.2 L ABG Hemoglobin 6.8 L 8.2 L VBG pH Oxyhemoglobin 94.3 L Sodium Potassium Chloride Carbon Dioxide BUN Creatinine Glucose POC Glucose 342 H Lactic Acid Calcium Phosphorus Magnesium Iron TIBC Direct Bilirubin AST ALT Alkaline Phosphatase Total Creatine Kinase CK-MB (CK-2) C-Reactive Protein Total Protein Albumin Vitamin B12 Salicylates Acetaminophen Miscellaneous Test Crossmatch 04/02/19 04/02/19 04/02/19 03:49 06:50 07:48 WBC RBC 2.65 L Hgb 8.6 L Hct 25.1 L MCV MCH MCHC RDW 17.6 H Plt Count 48 L [place] % (Auto) Lymph # Seg Neuts % (Manual) Lymphocytes % (Manual) Nucleated RBC % Seg Neutrophils # Man Lymphocytes # (Manual) Monocytes # (Manual) PT INR APTT D-Dimer POC ABG pH ABG pH POC ABG pCO2 POC ABG pO2 ABG pO2 ABG HCO3 ABG O2 Saturation ABG Base Excess ABG Hemoglobin VBG pH Oxyhemoglobin Sodium Potassium Chloride Carbon Dioxide BUN Creatinine Glucose POC Glucose 247 H 200 H Lactic Acid Calcium Phosphorus Magnesium Iron TIBC Direct Bilirubin AST ALT Alkaline Phosphatase Total Creatine Kinase CK-MB (CK-2) C-Reactive Protein Total Protein Albumin Vitamin B12 Salicylates Acetaminophen Miscellaneous Test Crossmatch 04/02/19 04/02/19 04/02/19 07:48 11:18 14:07 WBC RBC Hgb Hct MCV MCH MCHC RDW Plt Count [place] % (Auto) Lymph # Seg Neuts % (Manual) Lymphocytes % (Manual) Nucleated RBC % Seg Neutrophils # Man Lymphocytes # (Manual) Monocytes # (Manual) PT INR APTT D-Dimer POC ABG pH ABG pH POC ABG pCO2 POC ABG pO2 ABG pO2 ABG HCO3 ABG O2 Saturation ABG Base Excess ABG Hemoglobin VBG pH Oxyhemoglobin Sodium Potassium 3.5 L Chloride 115.7 H Carbon Dioxide 19 L BUN 29 H Creatinine 0.5 L Glucose 159 H POC Glucose 154 H 149 H Lactic Acid Calcium 7.5 L Phosphorus Magnesium Iron TIBC Direct Bilirubin AST 1418 H ALT 1134 H Alkaline Phosphatase 242 H Total Creatine Kinase CK-MB (CK-2) C-Reactive Protein Total Protein 4.2 L Albumin 2.1 L Vitamin B12 Salicylates Acetaminophen Miscellaneous Test Crossmatch 04/02/19 04/02/19 04/02/19 18:09 19:46 23:05 WBC RBC Hgb Hct MCV MCH MCHC RDW Plt Count [place] % (Auto) Lymph # Seg Neuts % (Manual) Lymphocytes % (Manual) Nucleated RBC % Seg Neutrophils # Man Lymphocytes # (Manual) Monocytes # (Manual) PT INR APTT D-Dimer POC ABG pH ABG pH POC ABG pCO2 POC ABG pO2 ABG pO2 ABG HCO3 ABG O2 Saturation ABG Base Excess ABG Hemoglobin VBG pH Oxyhemoglobin Sodium Potassium Chloride Carbon Dioxide BUN Creatinine Glucose POC Glucose 188 H 209 H 247 H Lactic Acid Calcium Phosphorus Magnesium Iron TIBC Direct Bilirubin AST ALT Alkaline Phosphatase Total Creatine Kinase CK-MB (CK-2) C-Reactive Protein Total Protein Albumin Vitamin B12 Salicylates Acetaminophen Miscellaneous Test Crossmatch 04/03/19 04/03/19 04/03/19 02:58 03:40 03:40 WBC RBC 2.87 L Hgb 9.3 L Hct 27.0 L MCV MCH MCHC RDW 17.2 H Plt Count 65 L [place] % (Auto) 9.8 H Lymph # 1.1 L Seg Neuts % (Manual) Lymphocytes % (Manual) Nucleated RBC % Seg Neutrophils # Man Lymphocytes # (Manual) Monocytes # (Manual) PT INR APTT D-Dimer POC ABG pH ABG pH POC ABG pCO2 POC ABG pO2 ABG pO2 ABG HCO3 ABG O2 Saturation ABG Base Excess ABG Hemoglobin VBG pH Oxyhemoglobin Sodium 147 H Potassium 3.5 L Chloride 116.7 H Carbon Dioxide 18 L BUN Creatinine 0.4 L Glucose 150 H POC Glucose 166 H Lactic Acid Calcium 8.1 L Phosphorus 2.20 L Magnesium Iron TIBC Direct Bilirubin AST 594 H ALT 861 H Alkaline Phosphatase 299 H Total Creatine Kinase CK-MB (CK-2) C-Reactive Protein Total Protein 4.4 L Albumin 2.1 L Vitamin B12 Salicylates Acetaminophen Miscellaneous Test Crossmatch 04/03/19 04/03/19 04/03/19 05:35 07:02 08:23 WBC RBC Hgb Hct MCV MCH MCHC RDW Plt Count [place] % (Auto) Lymph # Seg Neuts % (Manual) Lymphocytes % (Manual) Nucleated RBC % Seg Neutrophils # Man Lymphocytes # (Manual) Monocytes # (Manual) PT INR APTT D-Dimer POC ABG pH ABG pH POC ABG pCO2 POC ABG pO2 ABG pO2 97.7 H ABG HCO3 19.3 L ABG O2 Saturation ABG Base Excess -5.0 L ABG Hemoglobin 8.0 L VBG pH Oxyhemoglobin Sodium Potassium Chloride Carbon Dioxide BUN Creatinine Glucose POC Glucose 135 H 132 H Lactic Acid Calcium Phosphorus Magnesium Iron TIBC Direct Bilirubin AST ALT Alkaline Phosphatase Total Creatine Kinase CK-MB (CK-2) C-Reactive Protein Total Protein Albumin Vitamin B12 Salicylates Acetaminophen Miscellaneous Test Crossmatch 04/03/19 04/03/19 04/03/19 11:58 15:11 17:53 WBC RBC Hgb Hct MCV MCH MCHC RDW Plt Count [place] % (Auto) Lymph # Seg Neuts % (Manual) Lymphocytes % (Manual) Nucleated RBC % Seg Neutrophils # Man Lymphocytes # (Manual) Monocytes # (Manual) PT INR APTT D-Dimer POC ABG pH ABG pH POC ABG pCO2 POC ABG pO2 ABG pO2 ABG HCO3 ABG O2 Saturation ABG Base Excess ABG Hemoglobin VBG pH Oxyhemoglobin Sodium Potassium Chloride Carbon Dioxide BUN Creatinine Glucose POC Glucose 179 H 213 H 223 H Lactic Acid Calcium Phosphorus Magnesium Iron TIBC Direct Bilirubin AST ALT Alkaline Phosphatase Total Creatine Kinase CK-MB (CK-2) C-Reactive Protein Total Protein Albumin Vitamin B12 Salicylates Acetaminophen Miscellaneous Test Crossmatch 04/03/19 04/04/19 04/04/19 23:06 02:36 06:41 WBC RBC Hgb Hct MCV MCH MCHC RDW Plt Count [place] % (Auto) Lymph # Seg Neuts % (Manual) Lymphocytes % (Manual) Nucleated RBC % Seg Neutrophils # Man Lymphocytes # (Manual) Monocytes # (Manual) PT INR APTT D-Dimer POC ABG pH ABG pH POC ABG pCO2 POC ABG pO2 ABG pO2 ABG HCO3 ABG O2 Saturation ABG Base Excess ABG Hemoglobin VBG pH Oxyhemoglobin Sodium Potassium Chloride Carbon Dioxide BUN Creatinine Glucose POC Glucose 189 H 157 H 131 H Lactic Acid Calcium Phosphorus Magnesium Iron TIBC Direct Bilirubin AST ALT Alkaline Phosphatase Total Creatine Kinase CK-MB (CK-2) C-Reactive Protein Total Protein Albumin Vitamin B12 Salicylates Acetaminophen Miscellaneous Test Crossmatch 04/04/19 04/04/19 04/04/19 11:42 15:45 18:21 WBC RBC Hgb Hct MCV MCH MCHC RDW Plt Count [place] % (Auto) Lymph # Seg Neuts % (Manual) Lymphocytes % (Manual) Nucleated RBC % Seg Neutrophils # Man Lymphocytes # (Manual) Monocytes # (Manual) PT INR APTT D-Dimer POC ABG pH ABG pH POC ABG pCO2 POC ABG pO2 ABG pO2 ABG HCO3 ABG O2 Saturation ABG Base Excess ABG Hemoglobin VBG pH Oxyhemoglobin Sodium Potassium Chloride Carbon Dioxide BUN Creatinine Glucose POC Glucose 233 H 236 H 255 H Lactic Acid Calcium Phosphorus Magnesium Iron TIBC Direct Bilirubin AST ALT Alkaline Phosphatase Total Creatine Kinase CK-MB (CK-2) C-Reactive Protein Total Protein Albumin Vitamin B12 Salicylates Acetaminophen Miscellaneous Test Crossmatch 04/04/19 04/05/19 04/05/19 21:21 03:06 06:05 WBC RBC 2.68 L Hgb 8.5 L Hct 26.3 L MCV 98 H MCH MCHC RDW 17.4 H Plt Count [place] % (Auto) Lymph # Seg Neuts % (Manual) Lymphocytes % (Manual) Nucleated RBC % Seg Neutrophils # Man Lymphocytes # (Manual) Monocytes # (Manual) PT INR APTT D-Dimer POC ABG pH ABG pH POC ABG pCO2 POC ABG pO2 ABG pO2 ABG HCO3 ABG O2 Saturation ABG Base Excess ABG Hemoglobin VBG pH Oxyhemoglobin Sodium Potassium Chloride Carbon Dioxide BUN Creatinine Glucose POC Glucose 132 H 161 H Lactic Acid Calcium Phosphorus Magnesium Iron TIBC Direct Bilirubin AST ALT Alkaline Phosphatase Total Creatine Kinase CK-MB (CK-2) C-Reactive Protein Total Protein Albumin Vitamin B12 Salicylates Acetaminophen Miscellaneous Test Crossmatch 04/05/19 04/05/19 04/05/19 06:05 06:49 10:23 WBC RBC Hgb Hct MCV MCH MCHC RDW Plt Count [place] % (Auto) Lymph # Seg Neuts % (Manual) Lymphocytes % (Manual) Nucleated RBC % Seg Neutrophils # Man Lymphocytes # (Manual) Monocytes # (Manual) PT INR APTT D-Dimer POC ABG pH ABG pH POC ABG pCO2 POC ABG pO2 ABG pO2 ABG HCO3 ABG O2 Saturation ABG Base Excess ABG Hemoglobin VBG pH Oxyhemoglobin Sodium Potassium Chloride 112.5 H Carbon Dioxide BUN Creatinine 0.2 L Glucose 237 H POC Glucose 283 H 296 H Lactic Acid Calcium 7.9 L Phosphorus Magnesium Iron TIBC Direct Bilirubin AST ALT Alkaline Phosphatase Total Creatine Kinase CK-MB (CK-2) C-Reactive Protein Total Protein Albumin Vitamin B12 Salicylates Acetaminophen Miscellaneous Test Crossmatch 04/05/19 04/05/19 04/05/19 14:46 18:19 20:35 WBC RBC Hgb Hct MCV MCH MCHC RDW Plt Count [place] % (Auto) Lymph # Seg Neuts % (Manual) Lymphocytes % (Manual) Nucleated RBC % Seg Neutrophils # Man Lymphocytes # (Manual) Monocytes # (Manual) PT INR APTT D-Dimer POC ABG pH ABG pH POC ABG pCO2 POC ABG pO2 ABG pO2 ABG HCO3 ABG O2 Saturation ABG Base Excess ABG Hemoglobin VBG pH Oxyhemoglobin Sodium Potassium Chloride Carbon Dioxide BUN Creatinine Glucose POC Glucose 225 H 259 H 236 H Lactic Acid Calcium Phosphorus Magnesium Iron TIBC Direct Bilirubin AST ALT Alkaline Phosphatase Total Creatine Kinase CK-MB (CK-2) C-Reactive Protein Total Protein Albumin Vitamin B12 Salicylates Acetaminophen Miscellaneous Test Crossmatch 04/05/19 04/06/19 04/06/19 23:11 00:06 03:14 WBC RBC Hgb Hct MCV MCH MCHC RDW Plt Count [place] % (Auto) Lymph # Seg Neuts % (Manual) Lymphocytes % (Manual) Nucleated RBC % Seg Neutrophils # Man Lymphocytes # (Manual) Monocytes # (Manual) PT INR APTT D-Dimer 4526.86 H POC ABG pH ABG pH POC ABG pCO2 POC ABG pO2 ABG pO2 ABG HCO3 ABG O2 Saturation ABG Base Excess ABG Hemoglobin VBG pH Oxyhemoglobin Sodium Potassium Chloride Carbon Dioxide BUN Creatinine Glucose POC Glucose 205 H 228 H Lactic Acid Calcium Phosphorus Magnesium Iron TIBC Direct Bilirubin AST ALT Alkaline Phosphatase Total Creatine Kinase CK-MB (CK-2) C-Reactive Protein Total Protein Albumin Vitamin B12 Salicylates Acetaminophen Miscellaneous Test Crossmatch 04/06/19 04/06/19 04/06/19 05:20 05:20 07:57 WBC 15.1 H RBC 2.90 L Hgb 9.1 L Hct 28.0 L MCV MCH MCHC RDW 17.3 H Plt Count [place] % (Auto) Lymph # Seg Neuts % (Manual) Lymphocytes % (Manual) Nucleated RBC % Seg Neutrophils # Man Lymphocytes # (Manual) Monocytes # (Manual) PT INR APTT D-Dimer POC ABG pH ABG pH POC ABG pCO2 POC ABG pO2 ABG pO2 ABG HCO3 ABG O2 Saturation ABG Base Excess ABG Hemoglobin VBG pH Oxyhemoglobin Sodium Potassium Chloride Carbon Dioxide BUN Creatinine 0.2 L Glucose 161 H POC Glucose 191 H Lactic Acid Calcium 8.0 L Phosphorus Magnesium Iron TIBC Direct Bilirubin AST ALT Alkaline Phosphatase Total Creatine Kinase CK-MB (CK-2) C-Reactive Protein Total Protein Albumin Vitamin B12 Salicylates Acetaminophen Miscellaneous Test Crossmatch 04/06/19 04/06/19 04/06/19 12:09 18:24 22:07 WBC RBC Hgb Hct MCV MCH MCHC RDW Plt Count [place] % (Auto) Lymph # Seg Neuts % (Manual) Lymphocytes % (Manual) Nucleated RBC % Seg Neutrophils # Man Lymphocytes # (Manual) Monocytes # (Manual) PT INR APTT D-Dimer POC ABG pH ABG pH POC ABG pCO2 POC ABG pO2 ABG pO2 ABG HCO3 ABG O2 Saturation ABG Base Excess ABG Hemoglobin VBG pH Oxyhemoglobin Sodium Potassium Chloride Carbon Dioxide BUN Creatinine Glucose POC Glucose 143 H 161 H 140 H Lactic Acid Calcium Phosphorus Magnesium Iron TIBC Direct Bilirubin AST ALT Alkaline Phosphatase Total Creatine Kinase CK-MB (CK-2) C-Reactive Protein Total Protein Albumin Vitamin B12 Salicylates Acetaminophen Miscellaneous Test Crossmatch 04/07/19 04/07/19 04/07/19 03:00 04:30 04:30 WBC 13.0 H RBC 2.65 L Hgb 8.3 L Hct 25.5 L MCV MCH MCHC RDW 17.0 H Plt Count [place] % (Auto) Lymph # Seg Neuts % (Manual) Lymphocytes % (Manual) Nucleated RBC % Seg Neutrophils # Man Lymphocytes # (Manual) Monocytes # (Manual) PT INR APTT D-Dimer POC ABG pH ABG pH POC ABG pCO2 POC ABG pO2 ABG pO2 ABG HCO3 ABG O2 Saturation ABG Base Excess ABG Hemoglobin VBG pH Oxyhemoglobin Sodium Potassium Chloride Carbon Dioxide BUN Creatinine 0.2 L Glucose 208 H POC Glucose 224 H Lactic Acid Calcium 7.7 L Phosphorus Magnesium Iron TIBC Direct Bilirubin AST ALT Alkaline Phosphatase Total Creatine Kinase CK-MB (CK-2) C-Reactive Protein Total Protein Albumin Vitamin B12 Salicylates Acetaminophen Miscellaneous Test Crossmatch 04/07/19 04/07/19 04/07/19 05:47 08:27 10:33 WBC RBC Hgb Hct MCV MCH MCHC RDW Plt Count [place] % (Auto) Lymph # Seg Neuts % (Manual) Lymphocytes % (Manual) Nucleated RBC % Seg Neutrophils # Man Lymphocytes # (Manual) Monocytes # (Manual) PT INR APTT D-Dimer POC ABG pH ABG pH POC ABG pCO2 POC ABG pO2 ABG pO2 ABG HCO3 ABG O2 Saturation ABG Base Excess ABG Hemoglobin VBG pH Oxyhemoglobin Sodium Potassium Chloride Carbon Dioxide BUN Creatinine Glucose POC Glucose 225 H 176 H 207 H Lactic Acid Calcium Phosphorus Magnesium Iron TIBC Direct Bilirubin AST ALT Alkaline Phosphatase Total Creatine Kinase CK-MB (CK-2) C-Reactive Protein Total Protein Albumin Vitamin B12 Salicylates Acetaminophen Miscellaneous Test Crossmatch 04/07/19 04/07/19 04/07/19 14:13 18:32 22:42 WBC RBC Hgb Hct MCV MCH MCHC RDW Plt Count [place] % (Auto) Lymph # Seg Neuts % (Manual) Lymphocytes % (Manual) Nucleated RBC % Seg Neutrophils # Man Lymphocytes # (Manual) Monocytes # (Manual) PT INR APTT D-Dimer POC ABG pH ABG pH POC ABG pCO2 POC ABG pO2 ABG pO2 ABG HCO3 ABG O2 Saturation ABG Base Excess ABG Hemoglobin VBG pH Oxyhemoglobin Sodium Potassium Chloride Carbon Dioxide BUN Creatinine Glucose POC Glucose 219 H 227 H 238 H Lactic Acid Calcium Phosphorus Magnesium Iron TIBC Direct Bilirubin AST ALT Alkaline Phosphatase Total Creatine Kinase CK-MB (CK-2) C-Reactive Protein Total Protein Albumin Vitamin B12 Salicylates Acetaminophen Miscellaneous Test Crossmatch 04/08/19 04/08/19 04/08/19 02:31 05:37 14:10 WBC RBC Hgb Hct MCV MCH MCHC RDW Plt Count [place] % (Auto) Lymph # Seg Neuts % (Manual) Lymphocytes % (Manual) Nucleated RBC % Seg Neutrophils # Man Lymphocytes # (Manual) Monocytes # (Manual) PT INR APTT D-Dimer POC ABG pH ABG pH POC ABG pCO2 POC ABG pO2 ABG pO2 ABG HCO3 ABG O2 Saturation ABG Base Excess ABG Hemoglobin VBG pH Oxyhemoglobin Sodium Potassium Chloride Carbon Dioxide BUN Creatinine Glucose POC Glucose 194 H 194 H 139 H Lactic Acid Calcium Phosphorus Magnesium Iron TIBC Direct Bilirubin AST ALT Alkaline Phosphatase Total Creatine Kinase CK-MB (CK-2) C-Reactive Protein Total Protein Albumin Vitamin B12 Salicylates Acetaminophen Miscellaneous Test Crossmatch 04/08/19 04/08/19 04/09/19 17:43 23:20 03:28 WBC RBC Hgb Hct MCV MCH MCHC RDW Plt Count [place] % (Auto) Lymph # Seg Neuts % (Manual) Lymphocytes % (Manual) Nucleated RBC % Seg Neutrophils # Man Lymphocytes # (Manual) Monocytes # (Manual) PT INR APTT D-Dimer POC ABG pH ABG pH POC ABG pCO2 POC ABG pO2 ABG pO2 ABG HCO3 ABG O2 Saturation ABG Base Excess ABG Hemoglobin VBG pH Oxyhemoglobin Sodium Potassium Chloride Carbon Dioxide BUN Creatinine Glucose POC Glucose 261 H 277 H 301 H Lactic Acid Calcium Phosphorus Magnesium Iron TIBC Direct Bilirubin AST ALT Alkaline Phosphatase Total Creatine Kinase CK-MB (CK-2) C-Reactive Protein Total Protein Albumin Vitamin B12 Salicylates Acetaminophen Miscellaneous Test Crossmatch 04/09/19 04/09/19 04/09/19 05:35 05:35 05:35 WBC RBC 2.78 L Hgb 9.0 L Hct 26.7 L MCV MCH MCHC RDW 17.0 H Plt Count [place] % (Auto) Lymph # Seg Neuts % (Manual) Lymphocytes % (Manual) Nucleated RBC % Seg Neutrophils # Man Lymphocytes # (Manual) Monocytes # (Manual) PT INR APTT D-Dimer POC ABG pH ABG pH POC ABG pCO2 POC ABG pO2 ABG pO2 ABG HCO3 ABG O2 Saturation ABG Base Excess ABG Hemoglobin VBG pH Oxyhemoglobin Sodium Potassium Chloride Carbon Dioxide 31 H BUN Creatinine 0.2 L Glucose 218 H POC Glucose 240 H Lactic Acid Calcium Phosphorus Magnesium Iron TIBC Direct Bilirubin AST ALT Alkaline Phosphatase Total Creatine Kinase CK-MB (CK-2) C-Reactive Protein Total Protein Albumin Vitamin B12 Salicylates Acetaminophen Miscellaneous Test Crossmatch 04/09/19 04/09/19 04/09/19 09:01 12:23 17:33 WBC RBC Hgb Hct MCV MCH MCHC RDW Plt Count [place] % (Auto) Lymph # Seg Neuts % (Manual) Lymphocytes % (Manual) Nucleated RBC % Seg Neutrophils # Man Lymphocytes # (Manual) Monocytes # (Manual) PT INR APTT D-Dimer POC ABG pH ABG pH POC ABG pCO2 POC ABG pO2 ABG pO2 ABG HCO3 ABG O2 Saturation ABG Base Excess ABG Hemoglobin VBG pH Oxyhemoglobin Sodium Potassium Chloride Carbon Dioxide BUN Creatinine Glucose POC Glucose 160 H 162 H 149 H Lactic Acid Calcium Phosphorus Magnesium Iron TIBC Direct Bilirubin AST ALT Alkaline Phosphatase Total Creatine Kinase CK-MB (CK-2) C-Reactive Protein Total Protein Albumin Vitamin B12 Salicylates Acetaminophen Miscellaneous Test Crossmatch 04/09/19 04/09/19 04/10/19 21:26 22:28 03:16 WBC RBC Hgb Hct MCV MCH MCHC RDW Plt Count [place] % (Auto) Lymph # Seg Neuts % (Manual) Lymphocytes % (Manual) Nucleated RBC % Seg Neutrophils # Man Lymphocytes # (Manual) Monocytes # (Manual) PT INR APTT D-Dimer POC ABG pH ABG pH POC ABG pCO2 POC ABG pO2 ABG pO2 ABG HCO3 ABG O2 Saturation ABG Base Excess ABG Hemoglobin VBG pH Oxyhemoglobin Sodium Potassium Chloride Carbon Dioxide BUN Creatinine Glucose POC Glucose 196 H 224 H 163 H Lactic Acid Calcium Phosphorus Magnesium Iron TIBC Direct Bilirubin AST ALT Alkaline Phosphatase Total Creatine Kinase CK-MB (CK-2) C-Reactive Protein Total Protein Albumin Vitamin B12 Salicylates Acetaminophen Miscellaneous Test Crossmatch 04/10/19 04/10/19 04/10/19 04:15 04:15 05:30 WBC RBC 2.88 L Hgb 9.2 L Hct 27.9 L MCV MCH MCHC RDW 17.0 H Plt Count 454 H [place] % (Auto) Lymph # Seg Neuts % (Manual) Lymphocytes % (Manual) Nucleated RBC % Seg Neutrophils # Man Lymphocytes # (Manual) Monocytes # (Manual) PT INR APTT D-Dimer POC ABG pH ABG pH POC ABG pCO2 POC ABG pO2 ABG pO2 ABG HCO3 ABG O2 Saturation ABG Base Excess ABG Hemoglobin VBG pH Oxyhemoglobin Sodium Potassium Chloride Carbon Dioxide 32 H BUN Creatinine 0.2 L Glucose 126 H POC Glucose 135 H Lactic Acid Calcium Phosphorus Magnesium Iron TIBC Direct Bilirubin AST ALT Alkaline Phosphatase Total Creatine Kinase CK-MB (CK-2) C-Reactive Protein Total Protein Albumin Vitamin B12 Salicylates Acetaminophen Miscellaneous Test Crossmatch 04/10/19 04/10/19 04/10/19 12:14 15:29 23:38 WBC RBC Hgb Hct MCV MCH MCHC RDW Plt Count [place] % (Auto) Lymph # Seg Neuts % (Manual) Lymphocytes % (Manual) Nucleated RBC % Seg Neutrophils # Man Lymphocytes # (Manual) Monocytes # (Manual) PT INR APTT D-Dimer POC ABG pH ABG pH POC ABG pCO2 POC ABG pO2 ABG pO2 ABG HCO3 ABG O2 Saturation ABG Base Excess ABG Hemoglobin VBG pH Oxyhemoglobin Sodium Potassium Chloride Carbon Dioxide BUN Creatinine Glucose POC Glucose 109 H 149 H 268 H Lactic Acid Calcium Phosphorus Magnesium Iron TIBC Direct Bilirubin AST ALT Alkaline Phosphatase Total Creatine Kinase CK-MB (CK-2) C-Reactive Protein Total Protein Albumin Vitamin B12 Salicylates Acetaminophen Miscellaneous Test Crossmatch 04/11/19 04/11/19 04/11/19 05:27 12:08 18:08 WBC RBC Hgb Hct MCV MCH MCHC RDW Plt Count [place] % (Auto) Lymph # Seg Neuts % (Manual) Lymphocytes % (Manual) Nucleated RBC % Seg Neutrophils # Man Lymphocytes # (Manual) Monocytes # (Manual) PT INR APTT D-Dimer POC ABG pH ABG pH POC ABG pCO2 POC ABG pO2 ABG pO2 ABG HCO3 ABG O2 Saturation ABG Base Excess ABG Hemoglobin VBG pH Oxyhemoglobin Sodium Potassium Chloride Carbon Dioxide BUN Creatinine Glucose POC Glucose 109 H 185 H 190 H Lactic Acid Calcium Phosphorus Magnesium Iron TIBC Direct Bilirubin AST ALT Alkaline Phosphatase Total Creatine Kinase CK-MB (CK-2) C-Reactive Protein Total Protein Albumin Vitamin B12 Salicylates Acetaminophen Miscellaneous Test Crossmatch 04/11/19 04/12/19 04/12/19 23:23 06:00 11:42 WBC RBC Hgb Hct MCV MCH MCHC RDW Plt Count [place] % (Auto) Lymph # Seg Neuts % (Manual) Lymphocytes % (Manual) Nucleated RBC % Seg Neutrophils # Man Lymphocytes # (Manual) Monocytes # (Manual) PT INR APTT D-Dimer POC ABG pH ABG pH POC ABG pCO2 POC ABG pO2 ABG pO2 ABG HCO3 ABG O2 Saturation ABG Base Excess ABG Hemoglobin VBG pH Oxyhemoglobin Sodium Potassium Chloride Carbon Dioxide BUN Creatinine Glucose POC Glucose 127 H 201 H 161 H Lactic Acid Calcium Phosphorus Magnesium Iron TIBC Direct Bilirubin AST ALT Alkaline Phosphatase Total Creatine Kinase CK-MB (CK-2) C-Reactive Protein Total Protein Albumin Vitamin B12 Salicylates Acetaminophen Miscellaneous Test Crossmatch 04/12/19 04/12/19 04/12/19 17:56 20:07 21:59 WBC RBC Hgb Hct MCV MCH MCHC RDW Plt Count [place] % (Auto) Lymph # Seg Neuts % (Manual) Lymphocytes % (Manual) Nucleated RBC % Seg Neutrophils # Man Lymphocytes # (Manual) Monocytes # (Manual) PT INR APTT D-Dimer POC ABG pH ABG pH POC ABG pCO2 POC ABG pO2 ABG pO2 ABG HCO3 ABG O2 Saturation ABG Base Excess ABG Hemoglobin VBG pH Oxyhemoglobin Sodium Potassium Chloride Carbon Dioxide BUN Creatinine Glucose POC Glucose 145 H 158 H 203 H Lactic Acid Calcium Phosphorus Magnesium Iron TIBC Direct Bilirubin AST ALT Alkaline Phosphatase Total Creatine Kinase CK-MB (CK-2) C-Reactive Protein Total Protein Albumin Vitamin B12 Salicylates Acetaminophen Miscellaneous Test Crossmatch 04/12/19 04/13/19 04/13/19 23:37 08:50 08:50 WBC 15.7 H RBC 3.12 L Hgb Hct 30.2 L MCV MCH 33 H MCHC RDW 18.0 H Plt Count 678 H [place] % (Auto) Lymph # Seg Neuts % (Manual) Lymphocytes % (Manual) Nucleated RBC % Seg Neutrophils # Man Lymphocytes # (Manual) Monocytes # (Manual) PT INR APTT D-Dimer POC ABG pH ABG pH POC ABG pCO2 POC ABG pO2 ABG pO2 ABG HCO3 ABG O2 Saturation ABG Base Excess ABG Hemoglobin VBG pH Oxyhemoglobin Sodium Potassium Chloride Carbon Dioxide BUN Creatinine < 0.2 L Glucose 46 L POC Glucose 238 H Lactic Acid Calcium Phosphorus Magnesium Iron TIBC Direct Bilirubin AST ALT Alkaline Phosphatase Total Creatine Kinase CK-MB (CK-2) C-Reactive Protein Total Protein Albumin Vitamin B12 Salicylates Acetaminophen Miscellaneous Test Crossmatch 04/13/19 04/13/19 04/13/19 11:56 17:27 23:57 WBC RBC Hgb Hct MCV MCH MCHC RDW Plt Count [place] % (Auto) Lymph # Seg Neuts % (Manual) Lymphocytes % (Manual) Nucleated RBC % Seg Neutrophils # Man Lymphocytes # (Manual) Monocytes # (Manual) PT INR APTT D-Dimer POC ABG pH ABG pH POC ABG pCO2 POC ABG pO2 ABG pO2 ABG HCO3 ABG O2 Saturation ABG Base Excess ABG Hemoglobin VBG pH Oxyhemoglobin Sodium Potassium Chloride Carbon Dioxide BUN Creatinine Glucose POC Glucose 40 L 66 L 65 L Lactic Acid Calcium Phosphorus Magnesium Iron TIBC Direct Bilirubin AST ALT Alkaline Phosphatase Total Creatine Kinase CK-MB (CK-2) C-Reactive Protein Total Protein Albumin Vitamin B12 Salicylates Acetaminophen Miscellaneous Test Crossmatch 04/14/19 04/14/19 04/14/19 05:28 08:20 08:20 WBC 17.8 H RBC 3.26 L Hgb Hct MCV 98 H MCH MCHC RDW 18.3 H Plt Count 622 H [place] % (Auto) Lymph # Seg Neuts % (Manual) Lymphocytes % (Manual) Nucleated RBC % Seg Neutrophils # Man Lymphocytes # (Manual) Monocytes # (Manual) PT INR APTT D-Dimer POC ABG pH ABG pH POC ABG pCO2 POC ABG pO2 ABG pO2 ABG HCO3 ABG O2 Saturation ABG Base Excess ABG Hemoglobin VBG pH Oxyhemoglobin Sodium Potassium Chloride Carbon Dioxide BUN 6 L Creatinine < 0.2 L Glucose 154 H POC Glucose 149 H Lactic Acid Calcium Phosphorus Magnesium Iron TIBC Direct Bilirubin AST ALT Alkaline Phosphatase Total Creatine Kinase CK-MB (CK-2) C-Reactive Protein Total Protein Albumin Vitamin B12 Salicylates Acetaminophen Miscellaneous Test Crossmatch 04/14/19 04/14/19 04/14/19 12:16 17:54 23:35 WBC RBC Hgb Hct MCV MCH MCHC RDW Plt Count [place] % (Auto) Lymph # Seg Neuts % (Manual) Lymphocytes % (Manual) Nucleated RBC % Seg Neutrophils # Man Lymphocytes # (Manual) Monocytes # (Manual) PT INR APTT D-Dimer POC ABG pH ABG pH POC ABG pCO2 POC ABG pO2 ABG pO2 ABG HCO3 ABG O2 Saturation ABG Base Excess ABG Hemoglobin VBG pH Oxyhemoglobin Sodium Potassium Chloride Carbon Dioxide BUN Creatinine Glucose POC Glucose 176 H 224 H 173 H Lactic Acid Calcium Phosphorus Magnesium Iron TIBC Direct Bilirubin AST ALT Alkaline Phosphatase Total Creatine Kinase CK-MB (CK-2) C-Reactive Protein Total Protein Albumin Vitamin B12 Salicylates Acetaminophen Miscellaneous Test Crossmatch 04/15/19 04/15/19 04/15/19 05:44 12:44 18:06 WBC RBC Hgb Hct MCV MCH MCHC RDW Plt Count [place] % (Auto) Lymph # Seg Neuts % (Manual) Lymphocytes % (Manual) Nucleated RBC % Seg Neutrophils # Man Lymphocytes # (Manual) Monocytes # (Manual) PT INR APTT D-Dimer POC ABG pH 7.461 H ABG pH POC ABG pCO2 45.5 H POC ABG pO2 ABG pO2 ABG HCO3 ABG O2 Saturation ABG Base Excess ABG Hemoglobin VBG pH Oxyhemoglobin Sodium Potassium Chloride Carbon Dioxide BUN Creatinine Glucose POC Glucose 255 H 365 H Lactic Acid Calcium Phosphorus Magnesium Iron TIBC Direct Bilirubin AST ALT Alkaline Phosphatase Total Creatine Kinase CK-MB (CK-2) C-Reactive Protein Total Protein Albumin Vitamin B12 Salicylates Acetaminophen Miscellaneous Test Crossmatch 04/15/19 04/15/19 04/16/19 18:06 23:34 00:40 WBC RBC Hgb Hct MCV MCH MCHC RDW Plt Count [place] % (Auto) Lymph # Seg Neuts % (Manual) Lymphocytes % (Manual) Nucleated RBC % Seg Neutrophils # Man Lymphocytes # (Manual) Monocytes # (Manual) PT INR APTT D-Dimer POC ABG pH ABG pH POC ABG pCO2 POC ABG pO2 ABG pO2 ABG HCO3 ABG O2 Saturation ABG Base Excess ABG Hemoglobin VBG pH Oxyhemoglobin Sodium Potassium Chloride Carbon Dioxide BUN Creatinine Glucose POC Glucose 157 H 56 L 107 H Lactic Acid Calcium Phosphorus Magnesium Iron TIBC Direct Bilirubin AST ALT Alkaline Phosphatase Total Creatine Kinase CK-MB (CK-2) C-Reactive Protein Total Protein Albumin Vitamin B12 Salicylates Acetaminophen Miscellaneous Test Crossmatch 04/16/19 04/16/19 04/16/19 09:06 09:06 11:21 WBC 12.9 H RBC 2.95 L Hgb 9.7 L Hct 28.9 L MCV 98 H MCH 33 H MCHC RDW 17.7 H Plt Count 581 H [place] % (Auto) Lymph # Seg Neuts % (Manual) Lymphocytes % (Manual) Nucleated RBC % Seg Neutrophils # Man Lymphocytes # (Manual) Monocytes # (Manual) PT INR APTT D-Dimer POC ABG pH ABG pH POC ABG pCO2 POC ABG pO2 ABG pO2 ABG HCO3 ABG O2 Saturation ABG Base Excess ABG Hemoglobin VBG pH Oxyhemoglobin Sodium Potassium Chloride Carbon Dioxide 31 H BUN Creatinine 0.2 L Glucose 155 H POC Glucose 184 H Lactic Acid Calcium Phosphorus Magnesium Iron TIBC Direct Bilirubin AST ALT Alkaline Phosphatase Total Creatine Kinase CK-MB (CK-2) C-Reactive Protein Total Protein Albumin Vitamin B12 Salicylates Acetaminophen Miscellaneous Test Crossmatch 04/16/19 04/16/19 04/16/19 17:28 20:17 23:09 WBC RBC Hgb Hct MCV MCH MCHC RDW Plt Count [place] % (Auto) Lymph # Seg Neuts % (Manual) Lymphocytes % (Manual) Nucleated RBC % Seg Neutrophils # Man Lymphocytes # (Manual) Monocytes # (Manual) PT INR APTT D-Dimer POC ABG pH 7.479 H ABG pH POC ABG pCO2 POC ABG pO2 71 L ABG pO2 ABG HCO3 ABG O2 Saturation ABG Base Excess ABG Hemoglobin VBG pH Oxyhemoglobin Sodium Potassium Chloride Carbon Dioxide BUN Creatinine Glucose POC Glucose 173 H 178 H Lactic Acid Calcium Phosphorus Magnesium Iron TIBC Direct Bilirubin AST ALT Alkaline Phosphatase Total Creatine Kinase CK-MB (CK-2) C-Reactive Protein Total Protein Albumin Vitamin B12 Salicylates Acetaminophen Miscellaneous Test Crossmatch 04/17/19 04/17/19 04/17/19 05:02 11:39 12:48 WBC RBC Hgb Hct MCV MCH MCHC RDW Plt Count [place] % (Auto) Lymph # Seg Neuts % (Manual) Lymphocytes % (Manual) Nucleated RBC % Seg Neutrophils # Man Lymphocytes # (Manual) Monocytes # (Manual) PT INR APTT D-Dimer POC ABG pH 7.557 H ABG pH POC ABG pCO2 32.8 L POC ABG pO2 149 H ABG pO2 ABG HCO3 ABG O2 Saturation ABG Base Excess ABG Hemoglobin VBG pH Oxyhemoglobin Sodium Potassium Chloride Carbon Dioxide BUN Creatinine Glucose POC Glucose 252 H 124 H Lactic Acid Calcium Phosphorus Magnesium Iron TIBC Direct Bilirubin AST ALT Alkaline Phosphatase Total Creatine Kinase CK-MB (CK-2) C-Reactive Protein Total Protein Albumin Vitamin B12 Salicylates Acetaminophen Miscellaneous Test Crossmatch 04/17/19 04/18/19 04/18/19 23:31 05:32 11:34 WBC RBC Hgb Hct MCV MCH MCHC RDW Plt Count [place] % (Auto) Lymph # Seg Neuts % (Manual) Lymphocytes % (Manual) Nucleated RBC % Seg Neutrophils # Man Lymphocytes # (Manual) Monocytes # (Manual) PT INR APTT D-Dimer POC ABG pH ABG pH POC ABG pCO2 POC ABG pO2 ABG pO2 ABG HCO3 ABG O2 Saturation ABG Base Excess ABG Hemoglobin VBG pH Oxyhemoglobin Sodium Potassium Chloride Carbon Dioxide BUN Creatinine Glucose POC Glucose 149 H 334 H 344 H Lactic Acid Calcium Phosphorus Magnesium Iron TIBC Direct Bilirubin AST ALT Alkaline Phosphatase Total Creatine Kinase CK-MB (CK-2) C-Reactive Protein Total Protein Albumin Vitamin B12 Salicylates Acetaminophen Miscellaneous Test Crossmatch 04/18/19 04/18/19 04/18/19 17:43 18:14 23:35 WBC RBC Hgb Hct MCV MCH MCHC RDW Plt Count [place] % (Auto) Lymph # Seg Neuts % (Manual) Lymphocytes % (Manual) Nucleated RBC % Seg Neutrophils # Man Lymphocytes # (Manual) Monocytes # (Manual) PT INR APTT D-Dimer POC ABG pH ABG pH POC ABG pCO2 49.2 H POC ABG pO2 ABG pO2 ABG HCO3 ABG O2 Saturation ABG Base Excess ABG Hemoglobin VBG pH Oxyhemoglobin Sodium Potassium Chloride Carbon Dioxide BUN Creatinine Glucose POC Glucose 289 H 312 H Lactic Acid Calcium Phosphorus Magnesium Iron TIBC Direct Bilirubin AST ALT Alkaline Phosphatase Total Creatine Kinase CK-MB (CK-2) C-Reactive Protein Total Protein Albumin Vitamin B12 Salicylates Acetaminophen Miscellaneous Test Crossmatch 09/04/19/19 04/19/19 04:35 05:55 12:26 WBC RBC Hgb Hct MCV MCH MCHC RDW Plt Count [place] % (Auto) Lymph # Seg Neuts % (Manual) Lymphocytes % (Manual) Nucleated RBC % Seg Neutrophils # Man Lymphocytes # (Manual) Monocytes # (Manual) PT INR APTT D-Dimer POC ABG pH 7.565 H ABG pH POC ABG pCO2 POC ABG pO2 ABG pO2 ABG HCO3 ABG O2 Saturation ABG Base Excess ABG Hemoglobin VBG pH Oxyhemoglobin Sodium Potassium Chloride Carbon Dioxide BUN Creatinine Glucose POC Glucose 172 H 271 H Lactic Acid Calcium Phosphorus Magnesium Iron TIBC Direct Bilirubin AST ALT Alkaline Phosphatase Total Creatine Kinase CK-MB (CK-2) C-Reactive Protein Total Protein Albumin Vitamin B12 Salicylates Acetaminophen Miscellaneous Test Crossmatch 04/19/19 04/19/19 04/19/19 17:54 21:10 23:35 WBC RBC Hgb Hct MCV MCH MCHC RDW Plt Count [place] % (Auto) Lymph # Seg Neuts % (Manual) Lymphocytes % (Manual) Nucleated RBC % Seg Neutrophils # Man Lymphocytes # (Manual) Monocytes # (Manual) PT INR APTT D-Dimer POC ABG pH ABG pH POC ABG pCO2 POC ABG pO2 ABG pO2 ABG HCO3 ABG O2 Saturation ABG Base Excess ABG Hemoglobin VBG pH Oxyhemoglobin Sodium Potassium Chloride Carbon Dioxide BUN Creatinine Glucose POC Glucose 229 H 189 H 131 H Lactic Acid Calcium Phosphorus Magnesium Iron TIBC Direct Bilirubin AST ALT Alkaline Phosphatase Total Creatine Kinase CK-MB (CK-2) C-Reactive Protein Total Protein Albumin Vitamin B12 Salicylates Acetaminophen Miscellaneous Test Crossmatch 04/20/19 04/20/19 04/20/19 05:42 11:58 17:32 WBC RBC Hgb Hct MCV MCH MCHC RDW Plt Count [place] % (Auto) Lymph # Seg Neuts % (Manual) Lymphocytes % (Manual) Nucleated RBC % Seg Neutrophils # Man Lymphocytes # (Manual) Monocytes # (Manual) PT INR APTT D-Dimer POC ABG pH ABG pH POC ABG pCO2 POC ABG pO2 ABG pO2 ABG HCO3 ABG O2 Saturation ABG Base Excess ABG Hemoglobin VBG pH Oxyhemoglobin Sodium Potassium Chloride Carbon Dioxide BUN Creatinine Glucose POC Glucose 289 H 265 H 232 H Lactic Acid Calcium Phosphorus Magnesium Iron TIBC Direct Bilirubin AST ALT Alkaline Phosphatase Total Creatine Kinase CK-MB (CK-2) C-Reactive Protein Total Protein Albumin Vitamin B12 Salicylates Acetaminophen Miscellaneous Test Crossmatch 04/21/19 04/21/19 04/21/19 00:02 05:13 12:41 WBC RBC Hgb Hct MCV MCH MCHC RDW Plt Count [place] % (Auto) Lymph # Seg Neuts % (Manual) Lymphocytes % (Manual) Nucleated RBC % Seg Neutrophils # Man Lymphocytes # (Manual) Monocytes # (Manual) PT INR APTT D-Dimer POC ABG pH ABG pH POC ABG pCO2 POC ABG pO2 ABG pO2 ABG HCO3 ABG O2 Saturation ABG Base Excess ABG Hemoglobin VBG pH Oxyhemoglobin Sodium Potassium Chloride Carbon Dioxide BUN Creatinine Glucose POC Glucose 126 H 233 H 205 H Lactic Acid Calcium Phosphorus Magnesium Iron TIBC Direct Bilirubin AST ALT Alkaline Phosphatase Total Creatine Kinase CK-MB (CK-2) C-Reactive Protein Total Protein Albumin Vitamin B12 Salicylates Acetaminophen Miscellaneous Test Crossmatch 04/21/19 04/22/19 04/22/19 23:42 03:57 03:57 WBC 11.5 H RBC 3.44 L Hgb Hct MCV MCH MCHC RDW 16.3 H Plt Count 510 H [place] % (Auto) Lymph # Seg Neuts % (Manual) Lymphocytes % (Manual) Nucleated RBC % Seg Neutrophils # Man Lymphocytes # (Manual) Monocytes # (Manual) PT INR APTT D-Dimer POC ABG pH ABG pH POC ABG pCO2 POC ABG pO2 ABG pO2 ABG HCO3 ABG O2 Saturation ABG Base Excess ABG Hemoglobin VBG pH Oxyhemoglobin Sodium Potassium Chloride 96.3 L Carbon Dioxide BUN Creatinine 0.2 L Glucose 333 H POC Glucose 149 H Lactic Acid Calcium Phosphorus Magnesium Iron TIBC Direct Bilirubin AST 60 H ALT Alkaline Phosphatase 204 H Total Creatine Kinase CK-MB (CK-2) C-Reactive Protein Total Protein Albumin 3.1 L Vitamin B12 Salicylates Acetaminophen Miscellaneous Test Crossmatch 04/22/19 04/22/19 04/22/19 05:18 12:03 18:17 WBC RBC Hgb Hct MCV MCH MCHC RDW Plt Count [place] % (Auto) Lymph # Seg Neuts % (Manual) Lymphocytes % (Manual) Nucleated RBC % Seg Neutrophils # Man Lymphocytes # (Manual) Monocytes # (Manual) PT INR APTT D-Dimer POC ABG pH ABG pH POC ABG pCO2 POC ABG pO2 ABG pO2 ABG HCO3 ABG O2 Saturation ABG Base Excess ABG Hemoglobin VBG pH Oxyhemoglobin Sodium Potassium Chloride Carbon Dioxide BUN Creatinine Glucose POC Glucose 345 H 308 H 169 H Lactic Acid Calcium Phosphorus Magnesium Iron TIBC Direct Bilirubin AST ALT Alkaline Phosphatase Total Creatine Kinase CK-MB (CK-2) C-Reactive Protein Total Protein Albumin Vitamin B12 Salicylates Acetaminophen Miscellaneous Test Crossmatch 04/23/19 04/23/19 04/23/19 00:14 05:43 11:15 WBC RBC Hgb Hct MCV MCH MCHC RDW Plt Count [place] % (Auto) Lymph # Seg Neuts % (Manual) Lymphocytes % (Manual) Nucleated RBC % Seg Neutrophils # Man Lymphocytes # (Manual) Monocytes # (Manual) PT INR APTT D-Dimer POC ABG pH ABG pH POC ABG pCO2 POC ABG pO2 ABG pO2 ABG HCO3 ABG O2 Saturation ABG Base Excess ABG Hemoglobin VBG pH Oxyhemoglobin Sodium Potassium Chloride Carbon Dioxide BUN Creatinine Glucose POC Glucose 192 H 260 H 186 H Lactic Acid Calcium Phosphorus Magnesium Iron TIBC Direct Bilirubin AST ALT Alkaline Phosphatase Total Creatine Kinase CK-MB (CK-2) C-Reactive Protein Total Protein Albumin Vitamin B12 Salicylates Acetaminophen Miscellaneous Test Crossmatch 04/23/19 04/23/19 04/24/19 15:44 21:30 00:09 WBC RBC Hgb Hct MCV MCH MCHC RDW Plt Count [place] % (Auto) Lymph # Seg Neuts % (Manual) Lymphocytes % (Manual) Nucleated RBC % Seg Neutrophils # Man Lymphocytes # (Manual) Monocytes # (Manual) PT INR APTT D-Dimer POC ABG pH ABG pH POC ABG pCO2 POC ABG pO2 ABG pO2 ABG HCO3 ABG O2 Saturation ABG Base Excess ABG Hemoglobin VBG pH Oxyhemoglobin Sodium Potassium Chloride Carbon Dioxide BUN Creatinine Glucose POC Glucose 164 H 407 H 280 H Lactic Acid Calcium Phosphorus Magnesium Iron TIBC Direct Bilirubin AST ALT Alkaline Phosphatase Total Creatine Kinase CK-MB (CK-2) C-Reactive Protein Total Protein Albumin Vitamin B12 Salicylates Acetaminophen Miscellaneous Test Crossmatch 04/24/19 04/24/19 04/24/19 06:01 06:39 14:51 WBC RBC Hgb Hct MCV MCH MCHC RDW Plt Count [place] % (Auto) Lymph # Seg Neuts % (Manual) Lymphocytes % (Manual) Nucleated RBC % Seg Neutrophils # Man Lymphocytes # (Manual) Monocytes # (Manual) PT INR APTT D-Dimer POC ABG pH ABG pH POC ABG pCO2 POC ABG pO2 ABG pO2 ABG HCO3 ABG O2 Saturation ABG Base Excess ABG Hemoglobin VBG pH Oxyhemoglobin Sodium Potassium Chloride Carbon Dioxide BUN Creatinine Glucose POC Glucose 65 L 125 H 207 H Lactic Acid Calcium Phosphorus Magnesium Iron TIBC Direct Bilirubin AST ALT Alkaline Phosphatase Total Creatine Kinase CK-MB (CK-2) C-Reactive Protein Total Protein Albumin Vitamin B12 Salicylates Acetaminophen Miscellaneous Test Crossmatch 04/24/19 04/25/19 04/25/19 18:03 01:46 05:56 WBC RBC Hgb Hct MCV MCH MCHC RDW Plt Count [place] % (Auto) Lymph # Seg Neuts % (Manual) Lymphocytes % (Manual) Nucleated RBC % Seg Neutrophils # Man Lymphocytes # (Manual) Monocytes # (Manual) PT INR APTT D-Dimer POC ABG pH ABG pH POC ABG pCO2 POC ABG pO2 ABG pO2 ABG HCO3 ABG O2 Saturation ABG Base Excess ABG Hemoglobin VBG pH Oxyhemoglobin Sodium Potassium Chloride Carbon Dioxide BUN Creatinine Glucose POC Glucose 140 H 125 H 208 H Lactic Acid Calcium Phosphorus Magnesium Iron TIBC Direct Bilirubin AST ALT Alkaline Phosphatase Total Creatine Kinase CK-MB (CK-2) C-Reactive Protein Total Protein Albumin Vitamin B12 Salicylates Acetaminophen Miscellaneous Test Crossmatch 04/25/19 04/25/19 04/25/19 08:12 13:06 18:04 WBC RBC Hgb Hct MCV MCH MCHC RDW Plt Count [place] % (Auto) Lymph # Seg Neuts % (Manual) Lymphocytes % (Manual) Nucleated RBC % Seg Neutrophils # Man Lymphocytes # (Manual) Monocytes # (Manual) PT INR APTT D-Dimer POC ABG pH ABG pH POC ABG pCO2 POC ABG pO2 ABG pO2 ABG HCO3 ABG O2 Saturation ABG Base Excess ABG Hemoglobin VBG pH Oxyhemoglobin Sodium Potassium Chloride Carbon Dioxide BUN Creatinine Glucose POC Glucose 127 H 147 H 340 H Lactic Acid Calcium Phosphorus Magnesium Iron TIBC Direct Bilirubin AST ALT Alkaline Phosphatase Total Creatine Kinase CK-MB (CK-2) C-Reactive Protein Total Protein Albumin Vitamin B12 Salicylates Acetaminophen Miscellaneous Test Crossmatch 10/10/1004/26/19 04/26/19 00:16 05:15 11:26 WBC RBC Hgb Hct MCV MCH MCHC RDW Plt Count [place] % (Auto) Lymph # Seg Neuts % (Manual) Lymphocytes % (Manual) Nucleated RBC % Seg Neutrophils # Man Lymphocytes # (Manual) Monocytes # (Manual) PT INR APTT D-Dimer POC ABG pH ABG pH POC ABG pCO2 POC ABG pO2 ABG pO2 ABG HCO3 ABG O2 Saturation ABG Base Excess ABG Hemoglobin VBG pH Oxyhemoglobin Sodium Potassium Chloride Carbon Dioxide BUN Creatinine Glucose POC Glucose 137 H 136 H 365 H Lactic Acid Calcium Phosphorus Magnesium Iron TIBC Direct Bilirubin AST ALT Alkaline Phosphatase Total Creatine Kinase CK-MB (CK-2) C-Reactive Protein Total Protein Albumin Vitamin B12 Salicylates Acetaminophen Miscellaneous Test Crossmatch 04/26/19 04/26/19 04/27/19 18:03 21:30 06:14 WBC RBC Hgb Hct MCV MCH MCHC RDW Plt Count [place] % (Auto) Lymph # Seg Neuts % (Manual) Lymphocytes % (Manual) Nucleated RBC % Seg Neutrophils # Man Lymphocytes # (Manual) Monocytes # (Manual) PT INR APTT D-Dimer POC ABG pH ABG pH POC ABG pCO2 POC ABG pO2 ABG pO2 ABG HCO3 ABG O2 Saturation ABG Base Excess ABG Hemoglobin VBG pH Oxyhemoglobin Sodium Potassium Chloride Carbon Dioxide BUN Creatinine Glucose POC Glucose 124 H 231 H 199 H Lactic Acid Calcium Phosphorus Magnesium Iron TIBC Direct Bilirubin AST ALT Alkaline Phosphatase Total Creatine Kinase CK-MB (CK-2) C-Reactive Protein Total Protein Albumin Vitamin B12 Salicylates Acetaminophen Miscellaneous Test Crossmatch 04/27/19 04/27/19 04/28/19 16:39 22:22 05:55 WBC RBC Hgb Hct MCV MCH MCHC RDW Plt Count [place] % (Auto) Lymph # Seg Neuts % (Manual) Lymphocytes % (Manual) Nucleated RBC % Seg Neutrophils # Man Lymphocytes # (Manual) Monocytes # (Manual) PT INR APTT D-Dimer POC ABG pH ABG pH POC ABG pCO2 POC ABG pO2 ABG pO2 ABG HCO3 ABG O2 Saturation ABG Base Excess ABG Hemoglobin VBG pH Oxyhemoglobin Sodium Potassium Chloride Carbon Dioxide BUN Creatinine Glucose POC Glucose 171 H 183 H 207 H Lactic Acid Calcium Phosphorus Magnesium Iron TIBC Direct Bilirubin AST ALT Alkaline Phosphatase Total Creatine Kinase CK-MB (CK-2) C-Reactive Protein Total Protein Albumin Vitamin B12 Salicylates Acetaminophen Miscellaneous Test Crossmatch Allied health notes reviewed: nursing
[2019-04-28] MEDS: TYLENOL PO PRN (13:04)
[2019-04-28] MEDS: LANTUS SUB-Q SCH (21:57)
[2019-04-29] MEDS: HumaLOG SUB-Q SCH ×4 (00:47→19:50)
[2019-04-29] MEDS: ROBINUL FEEDTUBE SCH ×3 (08:48→22:13)
[2019-04-29] MEDS: PEPCID PO SCH ×2 (09:14→22:13)
[2019-04-29] MEDS: ENOXAPARIN SUB-Q SCH (09:14)
[2019-04-29] MEDS: KEPPRA PO SCH ×2 (09:14→22:13)
[2019-04-29] MEDS: METOPROLOL PO SCH ×2 (09:14→22:14)
[2019-04-29] MEDS: SODIUM CHLORIDE FLUSH SYRINGE 10 ML IV SCH ×2 (09:15→22:14)
--- NOTE | 2019-04-29 09:31 | Progress Note ---
Assessment and Plan Assessment and plan: Uncontrolled DM type 1 with hyperglycemia - cont. basal insulin Lantus - increase SSI Acute respiratory failure s/p intubated, off vent - s/p trach and peg - Tracheostomy re-adjusted on 04/17/19 - on vent, cont nebs, - s/p Trach POD 3 - Pulm following - Aspiration precautions - VAP bundle Acute anoxic encephalopathy, POA - from cardiac arrest -MR concerning for anoxic Brain injury Cardiac arrest s/p resuscitation - likely 2/2 severe hyperglycemia - preserved EF on 2D echo Generalized Anasacara -Given a dose of Bumex s/p DKA, severe Shock hypotensive +/- sepsis - resolved Now off pressors. Was on vasopressin, Levophed, Phenylephrine Sepsis with possible aspiration PNA - evident on CXR on admission with left sided infiltrates - Competed abx - Abx discontinued following notation that no evidence of liver lesion not consistent with infection per ID - Leucocytosis and thrombocytosis are likely reactive from hepatic subcapsular hematoma Head lice - multiple dosing of Permethin given, resolved Acute renal failure, likely vasomotor nephropathy - resolved Anemia, acute on chronic - no sign of blood loss s/p 2 Units PRBC transfused Hyperkalemia, resolved with fluid and insulin Hypernatremia Resolved hypokalemia, resolved Shock liver with elevated LFT and Coagulopathy - due to cardiac arrest and hypotension - cont to monitor Liver lesion ID Physician following Discontinued abx, not consistent with infection as noted above Hypermagnesemia - monitor levels as needed Hyperphosphatemia -cont to monitor, improved Stage 1 sacral ulcer, poa - upper ext blisters - pressure ulcer prevention strategies - wound care VTE Prophylaxis with Lovenox Poor prognosis DNR status Disposition: continue inpatient care, await placement in [place], [place] automotive center 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 Her last well-known time was 10:30 in the morning, she was traveling with a friend, she was unresponsive in the back seat. EMS was called, CPR was started and continued here in the emergency room. Patient was intubated in the ER, noted hypotensive started on dobutamine, epinephrine and Levophed drip, given IV fluids, found to be in DKA with BG ~2200, several metabolic derangements - placed on insulin drip and admitted to ICU. BP improved and she was weaned off pressors. Pt off pressors and extubated. Transferred to floor awaiting placement Hospitalist Physical - Constitutional Vitals: Temp Pulse Resp BP Pulse Ox 98.3 F 118 H 20 125/90 98 04/29/19 05:41 04/29/19 08:58 04/29/19 05:41 04/29/19 05:41 04/29/19 08:58 General appearance: Present: other (intubated) - EENT Eyes: Present: PERRL, EOM intact ENT: hearing intact, clear oral mucosa, dentition normal - Neck Neck: Present: supple, normal ROM - Respiratory Respiratory effort: normal Respiratory: bilateral: CTA - Cardiovascular Rhythm: regular Heart Sounds: Present: S1 & S2. Absent: gallop, rub - Extremities Extremities: no ischemia, No edema, Full ROM - Abdominal General gastrointestinal: soft, non-tender, non-distended, normal bowel sounds - Integumentary Integumentary: Present: clear, warm, dry - Neurologic Neurologic: CNII-XII intact, moves all extremities Results - Labs CBC & Chem 7: 04/22/19 03:57 04/22/19 03:57 Labs: Laboratory Last Values WBC 11.5 K/mm3 (4.5-11.0) H 04/22/19 03:57 RBC 3.44 M/mm3 (3.65-5.03) L 04/22/19 03:57 Hgb 10.6 gm/dl (10.1-14.3) 04/22/19 03:57 Hct 32.9 % (30.3-42.9) 04/22/19 03:57 MCV 96 fl (79-97) 04/22/19 03:57 MCH 31 pg (28-32) 04/22/19 03:57 MCHC 32 % (30-34) 04/22/19 03:57 RDW 16.3 % (13.2-15.2) H 04/22/19 03:57 Plt Count 510 K/mm3 (140-440) H 04/22/19 03:57 Lymph % (Auto) 16.9 % (13.4-35.0) 04/03/19 03:40 Wharton % (Auto) 9.8 % (0.0-7.3) H 04/03/19 03:40 Eos % (Auto) 3.2 % (0.0-4.3) 04/03/19 03:40 Baso % (Auto) 0.4 % (0.0-1.8) 04/03/19 03:40 Lymph # 1.1 K/mm3 (1.2-5.4) L 04/03/19 03:40 Wharton # 0.6 K/mm3 (0.0-0.8) 04/03/19 03:40 Eos # 0.2 K/mm3 (0.0-0.4) 04/03/19 03:40 Baso # 0.0 K/mm3 (0.0-0.1) 04/03/19 03:40 Add Manual Diff Complete 04/01/19 05:01 Total Counted 100 04/01/19 05:01 Seg Neutrophils % 69.7 % (40.0-70.0) 04/03/19 03:40 Seg Neuts % (Manual) 71.0 % (40.0-70.0) H 04/01/19 05:01 Band Neutrophils % 0 % 04/01/19 05:01 Lymphocytes % (Manual) 20.0 % (13.4-35.0) 04/01/19 05:01 Reactive Lymphs % (Man) 0 % 04/01/19 05:01 Monocytes % (Manual) 7.0 % (0.0-7.3) 04/01/19 05:01 Eosinophils % (Manual) 2.0 % (0.0-4.3) 04/01/19 05:01 Basophils % (Manual) 0 % (0.0-1.8) 04/01/19 05:01 Metamyelocytes % 0 % 04/01/19 05:01 Myelocytes % 0 % 04/01/19 05:01 Promyelocytes % 0 % 04/01/19 05:01 Blast Cells % 0 % 04/01/19 05:01 Nucleated RBC % Not Reportable 04/01/19 05:01 Seg Neutrophils # 4.4 K/mm3 (1.8-7.7) 04/03/19 03:40 Seg Neutrophils # Man 4.8 K/mm3 (1.8-7.7) 04/01/19 05:01 Band Neutrophils # 0.0 K/mm3 04/01/19 05:01 Lymphocytes # (Manual) 1.4 K/mm3 (1.2-5.4) 04/01/19 05:01 Abs React Lymphs (Man) 0.0 K/mm3 04/01/19 05:01 Monocytes # (Manual) 0.5 K/mm3 (0.0-0.8) 04/01/19 05:01 Eosinophils # (Manual) 0.1 K/mm3 (0.0-0.4) 04/01/19 05:01 Basophils # (Manual) 0.0 K/mm3 (0.0-0.1) 04/01/19 05:01 Metamyelocytes # 0.0 K/mm3 04/01/19 05:01 Myelocytes # 0.0 K/mm3 04/01/19 05:01 Promyelocytes # 0.0 K/mm3 04/01/19 05:01 Blast Cells # 0.0 K/mm3 04/01/19 05:01 WBC Morphology Not Reportable 04/01/19 05:01 Hypersegmented Neuts Not Reportable 04/01/19 05:01 Hyposegmented Neuts Not Reportable 04/01/19 05:01 Hypogranular Neuts Not Reportable 04/01/19 05:01 Smudge Cells Not Reportable 04/01/19 05:01 Toxic Granulation Not Reportable 04/01/19 05:01 Toxic Vacuolation Not Reportable 04/01/19 05:01 Dohle Bodies Not Reportable 04/01/19 05:01 Pelger-Huet Anomaly Not Reportable 04/01/19 05:01 Wong Rods Not Reportable 04/01/19 05:01 Platelet Estimate Not Reportable 04/01/19 05:01 Clumped Platelets Not Reportable 04/01/19 05:01 Plt Clumps, EDTA Not Reportable 04/01/19 05:01 Large Platelets Not Reportable 04/01/19 05:01 Giant Platelets Not Reportable 04/01/19 05:01 Platelet Satelliting Not Reportable 04/01/19 05:01 Plt Morphology Comment Not Reportable 04/01/19 05:01 RBC Morphology Normal 04/01/19 05:01 Dimorphic RBCs Not Reportable 04/01/19 05:01 Polychromasia Not Reportable 04/01/19 05:01 Hypochromasia Not Reportable 04/01/19 05:01 Poikilocytosis Not Reportable 04/01/19 05:01 Anisocytosis Not Reportable 04/01/19 05:01 Microcytosis Not Reportable 04/01/19 05:01 Macrocytosis Not Reportable 04/01/19 05:01 Spherocytes Not Reportable 04/01/19 05:01 Pappenheimer Bodies Not Reportable 04/01/19 05:01 Sickle Cells Not Reportable 04/01/19 05:01 Target Cells Not Reportable 04/01/19 05:01 Tear Drop Cells Not Reportable 04/01/19 05:01 Ovalocytes Not Reportable 04/01/19 05:01 Helmet Cells Not Reportable 04/01/19 05:01 Muñoz-Charenton Bodies Not Reportable 04/01/19 05:01 Bandon Rings Not Reportable 04/01/19 05:01 Madison Cells Not Reportable 04/01/19 05:01 Bite Cells Not Reportable 04/01/19 05:01 Crenated Cell Not Reportable 04/01/19 05:01 Elliptocytes Not Reportable 04/01/19 05:01 Acanthocytes (Spur) Not Reportable 04/01/19 05:01 Rouleaux Not Reportable 04/01/19 05:01 Hemoglobin C Crystals Not Reportable 04/01/19 05:01 Schistocytes Not Reportable 04/01/19 05:01 Malaria parasites Not Reportable 04/01/19 05:01 Benja Bodies Not Reportable 04/01/19 05:01 Hem Pathologist Commnt No 04/01/19 05:01 PT 13.9 Sec. (12.2-14.9) 04/01/19 17:14 INR 1.10 (0.87-1.13) 04/01/19 17:14 APTT 74.5 Sec. (24.2-36.6) H* 03/29/19 19:20 Fibrinogen 313 mg/dl (211-480) 04/01/19 17:14 D-Dimer 4526.86 ng/mlDDU (0-234) H 04/06/19 00:06 Heparin Anti-Xa, Unfract Negative (Negative) 03/31/19 15:00 POC ABG pH 7.565 (7.35-7.45) H 04/19/19 04:35 ABG pH 7.396 pH Units (7.350-7.450) 04/03/19 05:35 POC ABG pCO2 36.2 (35-45) 04/19/19 04:35 ABG pCO2 32.2 mm Hg 04/03/19 05:35 POC ABG pO2 88 (80-105) 04/19/19 04:35 ABG pO2 97.7 mm Hg (80.0-90.0) H 04/03/19 05:35 POC ABG HCO3 32.8 (22-26 mml/L) 04/19/19 04:35 ABG HCO3 19.3 mmol/L (20.0-26.0) L 04/03/19 05:35 POC ABG Total CO2 34 (23-27mmol/L) 04/19/19 04:35 POC ABG O2 Sat 98 04/19/19 04:35 ABG O2 Saturation 97.6 % (95.0-99.0) 04/03/19 05:35 ABG O2 Content 10.9 (0.0-44) 04/03/19 05:35 POC ABG Base Excess 11 ((-2) - (+3)mmol/L) 04/19/19 04:35 ABG Base Excess -5.0 mmol/L (-2.0-3.0) L 04/03/19 05:35 ABG Hemoglobin 8.0 gm/dl (12.0-16.0) L 04/03/19 05:35 ABG Carboxyhemoglobin 2.1 % (0.0-5.0) 04/03/19 05:35 ABG Methemoglobin 0.5 % (0.0-1.5) 04/03/19 05:35 VBG pH 6.800 (7.320-7.420) L* 03/29/19 19:47 Oxyhemoglobin 95.1 % (95.0-99.0) 04/03/19 05:35 FiO2 40 % 04/19/19 04:35 Sodium 138 mmol/L (137-145) 04/22/19 03:57 Potassium 4.6 mmol/L (3.6-5.0) 04/22/19 03:57 Chloride 96.3 mmol/L (98-107) L 04/22/19 03:57 Carbon Dioxide 28 mmol/L (22-30) 04/22/19 03:57 Anion Gap 18 mmol/L 04/22/19 03:57 BUN 14 mg/dL (7-17) 04/22/19 03:57 Creatinine 0.2 mg/dL (0.7-1.2) L 04/22/19 03:57 Estimated GFR > 60 ml/min 04/22/19 03:57 BUN/Creatinine Ratio 70 % 04/22/19 03:57 Glucose 333 mg/dL (65-100) H 04/22/19 03:57 POC Glucose 149 (70-105) H 04/29/19 05:51 Lactic Acid 3.30 mmol/L (0.7-2.0) H* 03/31/19 07:50 Calcium 9.6 mg/dL (8.4-10.2) 04/22/19 03:57 Phosphorus 4.10 mg/dL (2.5-4.5) 04/09/19 16:25 Magnesium 1.70 mg/dL (1.7-2.3) 04/22/19 03:57 Iron 26 ug/dL (37-170) L 03/31/19 08:20 TIBC 193 mcg/dL (250-450) L 03/31/19 08:20 Total Bilirubin 0.20 mg/dL (0.1-1.2) 04/22/19 03:57 Direct Bilirubin 0.2 mg/dL (0-0.2) 04/02/19 07:48 Indirect Bilirubin 0.5 mg/dL 04/02/19 07:48 AST 60 units/L (5-40) H 04/22/19 03:57 ALT 31 units/L (7-56) 04/22/19 03:57 Alkaline Phosphatase 204 units/L (35-129) H 04/22/19 03:57 Total Creatine Kinase 2465 units/L (30-135) H 03/30/19 05:26 CK-MB (CK-2) 52.7 ng/mL (0.0-4.0) H 03/30/19 05:26 CK-MB (CK-2) Rel Index 2.1 (0-4) 03/30/19 05:26 Troponin T < 0.010 ng/mL (0.00-0.029) 04/06/19 05:20 C-Reactive Protein 2.40 mg/dL (0.00-1.30) H 03/30/19 12:57 Total Protein 7.6 g/dL (6.3-8.2) 04/22/19 03:57 Albumin 3.1 g/dL (3.9-5) L 04/22/19 03:57 Albumin/Globulin Ratio 0.7 % 04/22/19 03:57 Serotonin Release Assay See scanned result 03/31/19 15:00 Vitamin B12 > 2000 pg/mL (211-911) H 03/31/19 08:20 Folate > 20 ng/mL (7.3-26.0) 03/31/19 08:20 HCG, Qual Negative (Negative) 03/29/19 19:20 Urine Color Yellow (Yellow) 03/29/19 23:10 Urine Turbidity Slightly-cloudy (Clear) 03/29/19 23:10 Urine pH 6.0 (5.0-7.0) 03/29/19 23:10 Ur Specific Schulter 1.021 (1.003-1.030) 03/29/19 23:10 Urine Protein 100 mg/dl mg/dL (Negative) 03/29/19 23:10 Urine Glucose (UA) >=500 mg/dL (Negative) 03/29/19 23:10 Urine Ketones 20 mg/dL (Negative) 03/29/19 23:10 Urine Blood Lg (Negative) 03/29/19 23:10 Urine Nitrite Neg (Negative) 03/29/19 23:10 Urine Bilirubin Neg (Negative) 03/29/19 23:10 Urine Urobilinogen < 2.0 mg/dL (<2.0) 03/29/19 23:10 Ur Leukocyte Esterase Neg (Negative) 03/29/19 23:10 Urine WBC (Auto) 1.0 /HPF (0.0-6.0) 03/29/19 23:10 Urine RBC (Auto) 1.0 /HPF (0.0-6.0) 03/29/19 23:10 Urine Mucus Few /HPF 03/29/19 23:10 Salicylates 0.8 mg/dL (2.8-20.0) L 03/30/19 Unknown Urine Opiates Screen Presumptive negative 03/29/19 23:10 Urine Methadone Screen Presumptive negative 03/29/19 23:10 Acetaminophen < 5.0 ug/mL (10.0-30.0) L 03/30/19 Unknown Ur Barbiturates Screen Presumptive negative 03/29/19 23:10 Ur Phencyclidine Scrn Presumptive negative 03/29/19 23:10 Ur Amphetamines Screen Presumptive negative 03/29/19 23:10 U Benzodiazepines Scrn Presumptive negative 03/29/19 23:10 Urine Cocaine Screen Presumptive negative 03/29/19 23:10 U Marijuana (THC) Screen Presumptive negative 03/29/19 23:10 Drugs of Abuse Note Disclamer 03/29/19 23:10 Heparin-induced Plt Ab Negative (Negative) 03/31/19 15:00 UF Heparin High Dose 0 % Release 03/31/19 15:00 FABIAN UFH Low Dose 0.1 0 % Release 03/31/19 15:00 FABIAN UFH Low Dose 0.5 0 % Release 03/31/19 15:00 Hepatitis A IgM Ab Non-reactive (NonReactive) 03/30/19 Unknown Hep Bs Antigen Non-reactive (Negative) 03/30/19 Unknown Hep B Core IgM Ab Non-reactive (NonReactive) 03/30/19 Unknown Hepatitis C Antibody Non-reactive (NonReactive) 03/30/19 Unknown Miscellaneous Test Flexitest 1 H 03/30/19 14:00 Blood Type O POSITIVE 03/30/19 03:30 Antibody Screen Negative 03/30/19 03:30 Crossmatch See Detail 03/30/19 03:30 Active Medications - Current Medications Current Medications: Generic Name Dose Route Start Last Admin Trade Name Freq PRN Reason Stop Dose Admin Acetaminophen 650 mg 03/29/19 23:34 04/28/19 13:04 Tylenol PO 650 mg Q4H PRN Administration Pain MILD(1-3)/Fever >100.5/WARE Lipase/Protease/Amylase 1 each 04/02/19 11:44 Pancreazaaliyah Daniels 10,500 Unit FEEDTUBE PRN PRN For Clogged Feeding Tube Dextrose 50 ml 04/21/19 12:03 D50w (25gm) Syringe IV PRN PRN Hypoglycemia Enoxaparin Sodium 40 mg 04/14/19 10:00 04/29/19 09:14 Lovenox SUB-Q 40 mg QDAY@1000 ZAMZAM Administration Famotidine 20 mg 04/02/19 10:00 04/29/19 09:14 Pepcid PO 20 mg BID ZAMZAM Administration Fentanyl 25 mcg 04/14/19 14:00 04/26/19 14:07 Duragesic TD 25 mcg Q3D ZAMZAM Administration Glycopyrrolate 1 mg 04/22/19 20:00 04/29/19 08:48 Robinul FEEDTUBE 1 mg TID ZAMZAM Administration Hydrophilic Ointment 1 applic 03/30/19 11:24 04/22/19 08:37 Vaseline Lip Therapy TP 1 applic Q2HR PRN Administration Dry Lips Insulin Glargine 20 units 04/09/19 22:00 04/28/19 21:57 Lantus SUB-Q 20 units QHS ZAMZAM Administration Insulin Human Lispro 0 unit 04/21/19 13:00 04/29/19 06:41 Humalog SUB-Q Not Given Q6HR [facility] Protocol Levetiracetam 500 mg 04/03/19 10:00 04/29/19 09:14 Keppra PO 500 mg BID ZAMZAM Administration Metoprolol Tartrate 5 mg 04/14/19 13:06 04/22/19 08:29 Lopressor IV 5 mg Q6HR PRN Administration Tachyarrhythmias Metoprolol Tartrate 25 mg 04/16/19 10:00 04/29/19 09:14 Lopressor PO 25 mg BID ZAMZAM Administration Multi-Ingred Cream/Lotion/Oil/Oint 1 applic 03/30/19 11:24 04/06/19 11:39 Artificial Tears Ophth Oint OU 1 applic Q4HR PRN Administration Dry Eye(s) Ondansetron HCl 4 mg 03/29/19 23:34 Zofran IV Q8H PRN Nausea And Vomiting Scopolamine 1 each 04/17/19 12:00 04/26/19 12:05 Transderm-Scop TD 1 each Q3D ZAMZAM Administration Simple Syrup 15 ml 04/02/19 11:44 04/24/19 06:02 Simple Syrup FEEDTUBE 15 ml PRN PRN Administration Hypoglycemia Simple Syrup 30 ml 04/02/19 11:44 Simple Syrup FEEDTUBE PRN PRN Hypoglycemia Sodium Bicarbonate 325 mg 04/02/19 11:44 Sodium Bicarbonate FEEDTUBE PRN PRN For Clogged Feeding Tube Sodium Chloride 10 ml 03/30/19 10:00 04/29/19 09:15 Sodium Chloride Flush Syringe 10 Ml IV 10 ml BID ZAMZAM Administration Sodium Chloride 10 ml 03/29/19 23:34 04/22/19 08:29 Sodium Chloride Flush Syringe 10 Ml IV 10 ml PRN PRN Administration LINE FLUSH Nutrition/Malnutrition Assess - Dietary Evaluation Nutrition/Malnutrition Findings: Nutrition Notes Start: 03/30/19 13:14 Freq: Status: Active Protocol: Document 04/25/19 09:43 RS (Rec: 04/25/19 10:30 RS [id number]) Co-Sign 04/25/19 09:43 NHALL Nutrition Notes Initial or Follow up Reassessment Current Diagnosis Acute Kidney Injury,Diabetes, Sepsis,Respiratory Failure Other Pertinent Diagnosis s/p trach & PEG, s/p cardiac arrest, DKA, ARF, Shock liver Current Diet Glucerna 1.2 at 50 ml/hr Labs/Tests POC glu 127 Pertinent Medications Reviewed Height 5 ft Weight 40.1 kg [place] Body Weight (kg) 45.45 BMI 17.2 Subjective/Other Information Glucerna running at 50 ml/hr via PEG. Tech reports pt is tolerating TF. Percent of energy/protein needs met: 100%/100% Burn Absent Trauma Absent #1 Nutrition Diagnosis Inadequate oral intake Diagnosis Progress(for reassessment Continues documentation) Is patient on ventilator? Yes Is Patient Ambulatory and/or Out of Bed No REE-([facility]-confined to bed) 1247.496 Kcal/Kg value to use for calculation 35 Approximate Energy Requirements Using 1404 kcal/Kg Calculation Used for Recommendations [facility] Additional Notes Protein: 1.2-1.5g/k-60g/ day Fluids: 1ml/kcal Nutrition Intervention Change Diet Order: Continue TF Nutrition Support: Glucerna 1.2 at 50ml/hr with 80ml water flush q4h. Kcal 1,440 Protein (gm) 72 Fluid (mL) 966 Goal #1 Meet at least 75% of energy and protein needs Follow-Up By: 05/02/19 Additional Comments F/U for stable TF rate and wt
[2019-04-29 10:16] LABS: Basophils # (Auto) 0.1 K/mm3 (0.0-0.1); Basophils % (Auto) 0.5 % (0.0-1.8); Eosinophils # (Auto) 0.2 K/mm3 (0.0-0.4); Eosinophils % (Auto) 2.1 % (0.0-4.3); Hematocrit 32.3 % (30.3-42.9); Hemoglobin 10.8 gm/dl (10.1-14.3); Lymphocytes # (Auto) 1.2 K/mm3 (1.2-5.4); Lymphocytes % (Auto) 11.1 % (13.4-35.0); Mean Corpuscular HGB Conc 33 % (30-34); Mean Corpuscular Volume 96 fl (79-97); Monocytes # (Auto) 0.5 K/mm3 (0.0-0.8); Monocytes % (Auto) 4.9 % (0.0-7.3); Platelet Count 432 K/mm3 (140-440); Red Blood Count 3.36 M/mm3 (3.65-5.03); Red Cell Distribution Width 16.3 % (13.2-15.2)
[2019-04-29 10:17] LABS: BUN/Creatinine Ratio 70; Blood Urea Nitrogen 21 mg/dL (7-17); Calcium 9.5 mg/dL (8.4-10.2); Hemolysis Index 3
[2019-04-29] MEDS: TRANSDERM-SCOP TD SCH (12:58)
[2019-04-29] MEDS: DURAGESIC TD SCH (13:00)
--- NOTE | 2019-04-29 14:38 | Progress Note ---
Assessment and Plan Patients condition same.Patient resting on T tube. Patient sleeping at this time. No acute respiratory distress.. Patient is on T tube, FIO2 28%. O2 saturation 96%.Patient running low grade temp and has mild leukocytosis. Patient waiting for placement. - Patient Problems (1) Cardiac arrest Current Visit: Yes Status: Acute Plan to address problem: Patient resucitated. Presently sleeping on T tube. No acute respiratory distress.; (2) Status post tracheostomy Current Visit: Yes Status: Acute Plan to address problem: Respiratory suctioning. Recommend trach care as per respiratory therapy protocol. (3) DKA, type 1 Current Visit: Yes Status: Acute Qualifiers: Diabetes mellitus complication detail: with coma Qualified Code(s): E10.11 - Type 1 diabetes mellitus with ketoacidosis with coma Plan to address problem: Management as per primary care. (4) Hypotension Current Visit: Yes Status: Acute Qualifiers: Hypotension type: unspecified hypotension type Qualified Code(s): I95.9 - Hypotension, unspecified Plan to address problem: Improved. Recent blood pressure 112/80. (5) Renal failure Current Visit: Yes Status: Acute Qualifiers: Renal failure chronicity: acute Acute renal failure type: unspecified Qualified Code(s): N17.9 - Acute kidney failure, unspecified Plan to address problem: Improved. Management as per primary care and nephrology . Subjective Date of service: 04/29/19 Principal diagnosis: Ac Hypoxemic Resp Failure; DKA; Severe sepsis with shock; ANGELICA Interval history: Patients condition same.Patient resting on T tube. Patient sleeping at this time. No acute respiratory distress.. Patient is on T tube, FIO2 28%. O2 saturation 96%.Patient running low grade temp and has mild leukocytosis. Patient waiting for placement. Objective Vital Signs - 12hr 04/29/19 04/29/19 04/29/19 05:41 08:58 12:16 Temperature 98.3 F 100.0 F H Pulse Rate 119 H 120 H Pulse Rate [ 118 H From Monitor] Respiratory 20 22 Rate Blood Pressure 125/90 112/80 O2 Sat by Pulse 97 98 96 Oximetry Constitutional: no acute distress, asleep, other (young CF normocephalic and atraumatic s/p tracheostomy to ATP, copious secretions) Eyes: non-icteric ENT: oropharynx moist Neck: supple, no lymphadenopathy, no JVD, other (midline trach tube) Effort: mildly labored Ascultation: Bilateral: diminished breath sounds, rhonchi Percussion: Bilateral: not dull Cardiovascular: regular rate and rhythm Gastrointestinal: normoactive bowel sounds, soft, non-tender, non-distended, other (PEG tube) Integumentary: normal Extremities: no cyanosis, no edema, pink and warm, pulses normal, no ischemia or petechiae Neurologic: unable to assess (awake, alert, not obeying commands) Psychiatric: other (unable to assess) CBC and BMP: 04/29/19 09:43 04/29/19 09:43 ABG, PT/INR, D-dimer: ABG POC ABG pH 7.565 (7.35-7.45) H 04/19/19 04:35 ABG pH 7.396 pH Units (7.350-7.450) 04/03/19 05:35 POC ABG pCO2 36.2 (35-45) 04/19/19 04:35 ABG pCO2 32.2 mm Hg 04/03/19 05:35 POC ABG pO2 88 (80-105) 04/19/19 04:35 ABG pO2 97.7 mm Hg (80.0-90.0) H 04/03/19 05:35 POC ABG HCO3 32.8 (22-26 mml/L) 04/19/19 04:35 POC ABG Total CO2 34 (23-27mmol/L) 04/19/19 04:35 POC ABG O2 Sat 98 04/19/19 04:35 ABG O2 Saturation 97.6 % (95.0-99.0) 04/03/19 05:35 PT/INR, D-dimer PT 13.9 Sec. (12.2-14.9) 04/01/19 17:14 INR 1.10 (0.87-1.13) 04/01/19 17:14 D-Dimer 4526.86 ng/mlDDU (0-234) H 04/06/19 00:06 Abnormal lab findings: Abnormal Labs 03/29/19 03/29/19 03/29/19 19:11 19:20 19:20 WBC 26.7 H RBC 2.52 L Hgb 8.1 L Hct MCV 148 H MCH MCHC 22 L RDW 18.5 H Plt Count Lymph % (Auto) Bland % (Auto) Lymph # Seg Neutrophils % Seg Neuts % (Manual) 82.0 H Lymphocytes % (Manual) 7.0 L Nucleated RBC % Seg Neutrophils # Seg Neutrophils # Man 21.9 H Lymphocytes # (Manual) Monocytes # (Manual) 1.9 H PT 21.8 H INR 1.95 H APTT 74.5 H* D-Dimer POC ABG pH ABG pH POC ABG pCO2 POC ABG pO2 ABG pO2 ABG HCO3 ABG O2 Saturation ABG Base Excess ABG Hemoglobin VBG pH Oxyhemoglobin Sodium Potassium Chloride Carbon Dioxide BUN Creatinine Glucose POC Glucose > 500 H Lactic Acid Calcium Phosphorus Magnesium Iron TIBC Direct Bilirubin AST ALT Alkaline Phosphatase Total Creatine Kinase CK-MB (CK-2) C-Reactive Protein Total Protein Albumin Vitamin B12 Salicylates Acetaminophen Miscellaneous Test Crossmatch 03/29/19 03/29/19 03/29/19 19:20 19:47 20:59 WBC RBC Hgb Hct MCV MCH MCHC RDW Plt Count Lymph % (Auto) Bland % (Auto) Lymph # Seg Neutrophils % Seg Neuts % (Manual) Lymphocytes % (Manual) Nucleated RBC % Seg Neutrophils # Seg Neutrophils # Man Lymphocytes # (Manual) Monocytes # (Manual) PT INR APTT D-Dimer POC ABG pH 6.892 L ABG pH POC ABG pCO2 POC ABG pO2 236 H ABG pO2 ABG HCO3 ABG O2 Saturation ABG Base Excess ABG Hemoglobin VBG pH 6.800 L* Oxyhemoglobin Sodium 118 L* Potassium 9.0 H* Chloride 64.5 L Carbon Dioxide 7 L* BUN 53 H Creatinine 2.1 H Glucose 2196 H* POC Glucose Lactic Acid Calcium 12.4 H* Phosphorus Magnesium Iron TIBC Direct Bilirubin AST 3900 H ALT 1034 H Alkaline Phosphatase 316 H Total Creatine Kinase CK-MB (CK-2) C-Reactive Protein Total Protein 5.1 L Albumin 2.8 L Vitamin B12 Salicylates Acetaminophen Miscellaneous Test Crossmatch 03/29/19 03/29/19 03/29/19 22:45 22:45 22:45 WBC RBC Hgb Hct MCV MCH MCHC RDW Plt Count Lymph % (Auto) Bland % (Auto) Lymph # Seg Neutrophils % Seg Neuts % (Manual) Lymphocytes % (Manual) Nucleated RBC % Seg Neutrophils # Seg Neutrophils # Man Lymphocytes # (Manual) Monocytes # (Manual) PT INR APTT D-Dimer POC ABG pH ABG pH POC ABG pCO2 POC ABG pO2 ABG pO2 ABG HCO3 ABG O2 Saturation ABG Base Excess ABG Hemoglobin VBG pH Oxyhemoglobin Sodium 132 L D Potassium 7.0 H* Chloride 84.3 L Carbon Dioxide 3 L* BUN 48 H Creatinine 1.8 H Glucose 1779 H* POC Glucose Lactic Acid Calcium Phosphorus 21.70 H Magnesium 4.70 H Iron TIBC Direct Bilirubin AST ALT Alkaline Phosphatase Total Creatine Kinase 363 H CK-MB (CK-2) C-Reactive Protein Total Protein Albumin Vitamin B12 Salicylates Acetaminophen Miscellaneous Test Crossmatch 03/29/19 03/29/19 03/30/19 Unknown Unknown 00:11 WBC RBC Hgb Hct MCV MCH MCHC RDW Plt Count Lymph % (Auto) Bland % (Auto) Lymph # Seg Neutrophils % Seg Neuts % (Manual) Lymphocytes % (Manual) Nucleated RBC % Seg Neutrophils # Seg Neutrophils # Man Lymphocytes # (Manual) Monocytes # (Manual) PT INR APTT D-Dimer POC ABG pH ABG pH POC ABG pCO2 POC ABG pO2 ABG pO2 ABG HCO3 ABG O2 Saturation ABG Base Excess ABG Hemoglobin VBG pH Oxyhemoglobin Sodium 122 L Potassium 7.9 H* 6.4 H* Chloride 75.3 L 89.7 L Carbon Dioxide 3 L* 12 L D BUN 52 H 46 H Creatinine 2.0 H 1.7 H Glucose 2043 H* 1591 H* POC Glucose Lactic Acid Calcium 7.8 L Phosphorus 19.30 H Magnesium 3.90 H Iron TIBC Direct Bilirubin AST ALT Alkaline Phosphatase Total Creatine Kinase CK-MB (CK-2) C-Reactive Protein Total Protein Albumin Vitamin B12 Salicylates Acetaminophen Miscellaneous Test Crossmatch 03/30/19 03/30/19 03/30/19 00:11 02:14 02:14 WBC RBC Hgb Hct MCV MCH MCHC RDW Plt Count Lymph % (Auto) Bland % (Auto) Lymph # Seg Neutrophils % Seg Neuts % (Manual) Lymphocytes % (Manual) Nucleated RBC % Seg Neutrophils # Seg Neutrophils # Man Lymphocytes # (Manual) Monocytes # (Manual) PT INR APTT D-Dimer POC ABG pH ABG pH POC ABG pCO2 POC ABG pO2 ABG pO2 ABG HCO3 ABG O2 Saturation ABG Base Excess ABG Hemoglobin VBG pH Oxyhemoglobin Sodium Potassium Chloride Carbon Dioxide 9 L* BUN 45 H Creatinine 1.7 H Glucose 1155 H* POC Glucose Lactic Acid Calcium 7.9 L Phosphorus 10.90 H D 5.30 H D Magnesium 3.10 H 2.90 H Iron TIBC Direct Bilirubin AST ALT Alkaline Phosphatase Total Creatine Kinase CK-MB (CK-2) C-Reactive Protein Total Protein Albumin Vitamin B12 Salicylates Acetaminophen Miscellaneous Test Crossmatch 03/30/19 03/30/19 03/30/19 03:15 03:30 04:23 WBC 18.0 H RBC 2.31 L Hgb 7.3 L Hct 23.8 L D MCV 103 H MCH MCHC RDW 17.1 H Plt Count Lymph % (Auto) Bland % (Auto) Lymph # Seg Neutrophils % Seg Neuts % (Manual) 79.0 H Lymphocytes % (Manual) Nucleated RBC % Seg Neutrophils # Seg Neutrophils # Man 14.2 H Lymphocytes # (Manual) Monocytes # (Manual) PT INR APTT D-Dimer POC ABG pH 7.251 L ABG pH POC ABG pCO2 POC ABG pO2 156 H ABG pO2 ABG HCO3 ABG O2 Saturation ABG Base Excess ABG Hemoglobin VBG pH Oxyhemoglobin Sodium Potassium Chloride Carbon Dioxide BUN Creatinine Glucose POC Glucose Lactic Acid Calcium Phosphorus Magnesium Iron TIBC Direct Bilirubin AST ALT Alkaline Phosphatase Total Creatine Kinase CK-MB (CK-2) C-Reactive Protein Total Protein Albumin Vitamin B12 Salicylates Acetaminophen Miscellaneous Test Crossmatch See Detail 03/30/19 03/30/19 03/30/19 05:26 05:26 10:38 WBC RBC Hgb Hct MCV MCH MCHC RDW Plt Count Lymph % (Auto) Bland % (Auto) Lymph # Seg Neutrophils % Seg Neuts % (Manual) Lymphocytes % (Manual) Nucleated RBC % Seg Neutrophils # Seg Neutrophils # Man Lymphocytes # (Manual) Monocytes # (Manual) PT INR APTT D-Dimer POC ABG pH ABG pH POC ABG pCO2 POC ABG pO2 ABG pO2 ABG HCO3 ABG O2 Saturation ABG Base Excess ABG Hemoglobin VBG pH Oxyhemoglobin Sodium 158 H D Potassium 3.5 L Chloride 109.3 H Carbon Dioxide 19 L D BUN 40 H Creatinine 1.5 H Glucose 760 H* POC Glucose 380 H Lactic Acid Calcium 7.3 L Phosphorus Magnesium 2.60 H Iron TIBC Direct Bilirubin AST 02157 H ALT 2156 H Alkaline Phosphatase 271 H Total Creatine Kinase 2465 H CK-MB (CK-2) 52.7 H C-Reactive Protein Total Protein 4.5 L Albumin 2.4 L Vitamin B12 Salicylates Acetaminophen Miscellaneous Test Crossmatch 03/30/19 03/30/19 03/30/19 11:08 12:25 12:57 WBC RBC Hgb Hct MCV MCH MCHC RDW Plt Count Lymph % (Auto) Bland % (Auto) Lymph # Seg Neutrophils % Seg Neuts % (Manual) Lymphocytes % (Manual) Nucleated RBC % Seg Neutrophils # Seg Neutrophils # Man Lymphocytes # (Manual) Monocytes # (Manual) PT INR APTT D-Dimer POC ABG pH ABG pH POC ABG pCO2 POC ABG pO2 ABG pO2 ABG HCO3 ABG O2 Saturation ABG Base Excess ABG Hemoglobin VBG pH Oxyhemoglobin Sodium 156 H Potassium 3.2 L Chloride 116.4 H Carbon Dioxide 21 L BUN 37 H Creatinine Glucose 162 H POC Glucose 263 H 196 H Lactic Acid Calcium 7.2 L Phosphorus Magnesium Iron TIBC Direct Bilirubin AST ALT Alkaline Phosphatase Total Creatine Kinase CK-MB (CK-2) C-Reactive Protein Total Protein Albumin Vitamin B12 Salicylates Acetaminophen Miscellaneous Test Crossmatch 03/30/19 03/30/19 03/30/19 12:57 12:57 12:57 WBC RBC Hgb Hct MCV MCH MCHC RDW Plt Count Lymph % (Auto) Bland % (Auto) Lymph # Seg Neutrophils % Seg Neuts % (Manual) Lymphocytes % (Manual) Nucleated RBC % Seg Neutrophils # Seg Neutrophils # Man Lymphocytes # (Manual) Monocytes # (Manual) PT 21.0 H INR 1.86 H APTT D-Dimer POC ABG pH ABG pH POC ABG pCO2 POC ABG pO2 ABG pO2 ABG HCO3 ABG O2 Saturation ABG Base Excess ABG Hemoglobin VBG pH Oxyhemoglobin Sodium Potassium Chloride Carbon Dioxide BUN Creatinine Glucose POC Glucose Lactic Acid 9.00 H* Calcium Phosphorus Magnesium Iron TIBC Direct Bilirubin AST ALT Alkaline Phosphatase Total Creatine Kinase CK-MB (CK-2) C-Reactive Protein 2.40 H Total Protein Albumin Vitamin B12 Salicylates Acetaminophen Miscellaneous Test Crossmatch 03/30/19 03/30/19 03/30/19 13:23 14:00 14:47 WBC RBC Hgb Hct MCV MCH MCHC RDW Plt Count Lymph % (Auto) Bland % (Auto) Lymph # Seg Neutrophils % Seg Neuts % (Manual) Lymphocytes % (Manual) Nucleated RBC % Seg Neutrophils # Seg Neutrophils # Man Lymphocytes # (Manual) Monocytes # (Manual) PT INR APTT D-Dimer POC ABG pH ABG pH POC ABG pCO2 POC ABG pO2 ABG pO2 ABG HCO3 ABG O2 Saturation ABG Base Excess ABG Hemoglobin VBG pH Oxyhemoglobin Sodium Potassium Chloride Carbon Dioxide BUN Creatinine Glucose POC Glucose 176 H 245 H Lactic Acid Calcium Phosphorus Magnesium Iron TIBC Direct Bilirubin AST ALT Alkaline Phosphatase Total Creatine Kinase CK-MB (CK-2) C-Reactive Protein Total Protein Albumin Vitamin B12 Salicylates Acetaminophen Miscellaneous Test Flexitest 1 H Crossmatch 03/30/19 03/30/19 03/30/19 16:11 17:11 17:46 WBC RBC Hgb Hct MCV MCH MCHC RDW Plt Count Lymph % (Auto) Bland % (Auto) Lymph # Seg Neutrophils % Seg Neuts % (Manual) Lymphocytes % (Manual) Nucleated RBC % Seg Neutrophils # Seg Neutrophils # Man Lymphocytes # (Manual) Monocytes # (Manual) PT INR APTT D-Dimer POC ABG pH ABG pH POC ABG pCO2 POC ABG pO2 ABG pO2 ABG HCO3 ABG O2 Saturation ABG Base Excess ABG Hemoglobin VBG pH Oxyhemoglobin Sodium Potassium Chloride Carbon Dioxide BUN Creatinine Glucose POC Glucose 181 H 167 H 125 H Lactic Acid Calcium Phosphorus Magnesium Iron TIBC Direct Bilirubin AST ALT Alkaline Phosphatase Total Creatine Kinase CK-MB (CK-2) C-Reactive Protein Total Protein Albumin Vitamin B12 Salicylates Acetaminophen Miscellaneous Test Crossmatch 03/30/19 03/30/19 03/30/19 18:59 21:31 22:19 WBC RBC Hgb Hct MCV MCH MCHC RDW Plt Count Lymph % (Auto) Bland % (Auto) Lymph # Seg Neutrophils % Seg Neuts % (Manual) Lymphocytes % (Manual) Nucleated RBC % Seg Neutrophils # Seg Neutrophils # Man Lymphocytes # (Manual) Monocytes # (Manual) PT INR APTT D-Dimer POC ABG pH ABG pH POC ABG pCO2 POC ABG pO2 ABG pO2 ABG HCO3 ABG O2 Saturation ABG Base Excess ABG Hemoglobin VBG pH Oxyhemoglobin Sodium Potassium Chloride Carbon Dioxide BUN Creatinine Glucose POC Glucose 140 H 166 H 115 H Lactic Acid Calcium Phosphorus Magnesium Iron TIBC Direct Bilirubin AST ALT Alkaline Phosphatase Total Creatine Kinase CK-MB (CK-2) C-Reactive Protein Total Protein Albumin Vitamin B12 Salicylates Acetaminophen Miscellaneous Test Crossmatch 03/30/19 03/30/19 03/30/19 23:13 Unknown Unknown WBC RBC Hgb Hct MCV MCH MCHC RDW Plt Count Lymph % (Auto) Bland % (Auto) Lymph # Seg Neutrophils % Seg Neuts % (Manual) Lymphocytes % (Manual) Nucleated RBC % Seg Neutrophils # Seg Neutrophils # Man Lymphocytes # (Manual) Monocytes # (Manual) PT INR APTT D-Dimer POC ABG pH ABG pH POC ABG pCO2 POC ABG pO2 ABG pO2 47.8 L ABG HCO3 18.8 L ABG O2 Saturation 83.8 L ABG Base Excess -5.4 L ABG Hemoglobin 6.8 L VBG pH Oxyhemoglobin 81.8 L Sodium 157 H Potassium 3.3 L Chloride 117.9 H Carbon Dioxide 20 L BUN 36 H Creatinine Glucose 150 H POC Glucose 112 H Lactic Acid Calcium 7.2 L Phosphorus Magnesium Iron TIBC Direct Bilirubin AST ALT Alkaline Phosphatase Total Creatine Kinase CK-MB (CK-2) C-Reactive Protein Total Protein Albumin Vitamin B12 Salicylates Acetaminophen Miscellaneous Test Crossmatch 03/30/19 03/30/19 03/31/19 Unknown Unknown 00:03 WBC RBC Hgb Hct MCV MCH MCHC RDW Plt Count Lymph % (Auto) Bland % (Auto) Lymph # Seg Neutrophils % Seg Neuts % (Manual) Lymphocytes % (Manual) Nucleated RBC % Seg Neutrophils # Seg Neutrophils # Man Lymphocytes # (Manual) Monocytes # (Manual) PT INR APTT D-Dimer POC ABG pH ABG pH POC ABG pCO2 POC ABG pO2 ABG pO2 ABG HCO3 ABG O2 Saturation ABG Base Excess ABG Hemoglobin VBG pH Oxyhemoglobin Sodium Potassium Chloride Carbon Dioxide BUN Creatinine Glucose POC Glucose 188 H Lactic Acid Calcium Phosphorus Magnesium Iron TIBC Direct Bilirubin AST ALT Alkaline Phosphatase Total Creatine Kinase CK-MB (CK-2) C-Reactive Protein Total Protein Albumin Vitamin B12 Salicylates 0.8 L Acetaminophen < 5.0 L Miscellaneous Test Crossmatch 03/31/19 03/31/19 03/31/19 01:18 03:07 03:50 WBC RBC Hgb Hct MCV MCH MCHC RDW Plt Count Lymph % (Auto) Bland % (Auto) Lymph # Seg Neutrophils % Seg Neuts % (Manual) Lymphocytes % (Manual) Nucleated RBC % Seg Neutrophils # Seg Neutrophils # Man Lymphocytes # (Manual) Monocytes # (Manual) PT INR APTT D-Dimer POC ABG pH ABG pH 7.525 H POC ABG pCO2 POC ABG pO2 ABG pO2 178.0 H ABG HCO3 19.5 L ABG O2 Saturation 99.2 H ABG Base Excess -3.1 L ABG Hemoglobin 5.8 L VBG pH Oxyhemoglobin Sodium Potassium Chloride Carbon Dioxide BUN Creatinine Glucose POC Glucose 114 H 107 H Lactic Acid Calcium Phosphorus Magnesium Iron TIBC Direct Bilirubin AST ALT Alkaline Phosphatase Total Creatine Kinase CK-MB (CK-2) C-Reactive Protein Total Protein Albumin Vitamin B12 Salicylates Acetaminophen Miscellaneous Test Crossmatch 03/31/19 03/31/19 03/31/19 03:51 03:51 04:05 WBC RBC 1.89 L Hgb 6.1 L Hct 18.2 L* MCV MCH MCHC RDW 17.7 H Plt Count 89 L Lymph % (Auto) Bland % (Auto) Lymph # Seg Neutrophils % Seg Neuts % (Manual) 86.0 H Lymphocytes % (Manual) 10.0 L Nucleated RBC % 1.0 H Seg Neutrophils # Seg Neutrophils # Man Lymphocytes # (Manual) 0.7 L Monocytes # (Manual) PT INR APTT D-Dimer POC ABG pH ABG pH POC ABG pCO2 POC ABG pO2 ABG pO2 ABG HCO3 ABG O2 Saturation ABG Base Excess ABG Hemoglobin VBG pH Oxyhemoglobin Sodium 151 H Potassium 3.2 L Chloride 119.4 H Carbon Dioxide 17 L BUN 35 H Creatinine Glucose 139 H POC Glucose 153 H Lactic Acid Calcium 7.1 L Phosphorus Magnesium Iron TIBC Direct Bilirubin AST ALT Alkaline Phosphatase Total Creatine Kinase CK-MB (CK-2) C-Reactive Protein Total Protein Albumin Vitamin B12 Salicylates Acetaminophen Miscellaneous Test Crossmatch 03/31/19 03/31/19 03/31/19 05:05 05:35 06:23 WBC RBC Hgb Hct MCV MCH MCHC RDW Plt Count Lymph % (Auto) Bland % (Auto) Lymph # Seg Neutrophils % Seg Neuts % (Manual) Lymphocytes % (Manual) Nucleated RBC % Seg Neutrophils # Seg Neutrophils # Man Lymphocytes # (Manual) Monocytes # (Manual) PT INR APTT D-Dimer POC ABG pH ABG pH POC ABG pCO2 POC ABG pO2 ABG pO2 ABG HCO3 ABG O2 Saturation ABG Base Excess ABG Hemoglobin VBG pH Oxyhemoglobin Sodium Potassium Chloride Carbon Dioxide BUN Creatinine Glucose POC Glucose 176 H 133 H Lactic Acid 3.20 H* Calcium Phosphorus Magnesium Iron TIBC Direct Bilirubin AST ALT Alkaline Phosphatase Total Creatine Kinase CK-MB (CK-2) C-Reactive Protein Total Protein Albumin Vitamin B12 Salicylates Acetaminophen Miscellaneous Test Crossmatch 03/31/19 03/31/19 03/31/19 07:50 07:51 08:20 WBC RBC Hgb Hct MCV MCH MCHC RDW Plt Count Lymph % (Auto) Bland % (Auto) Lymph # Seg Neutrophils % Seg Neuts % (Manual) Lymphocytes % (Manual) Nucleated RBC % Seg Neutrophils # Seg Neutrophils # Man Lymphocytes # (Manual) Monocytes # (Manual) PT INR APTT D-Dimer POC ABG pH ABG pH POC ABG pCO2 POC ABG pO2 ABG pO2 ABG HCO3 ABG O2 Saturation ABG Base Excess ABG Hemoglobin VBG pH Oxyhemoglobin Sodium Potassium Chloride Carbon Dioxide BUN Creatinine Glucose POC Glucose 135 H Lactic Acid 3.30 H* Calcium Phosphorus Magnesium Iron 26 L TIBC 193 L Direct Bilirubin AST ALT Alkaline Phosphatase Total Creatine Kinase CK-MB (CK-2) C-Reactive Protein Total Protein Albumin Vitamin B12 Salicylates Acetaminophen Miscellaneous Test Crossmatch 03/31/19 03/31/19 03/31/19 08:20 08:20 09:06 WBC RBC Hgb Hct MCV MCH MCHC RDW Plt Count Lymph % (Auto) Bland % (Auto) Lymph # Seg Neutrophils % Seg Neuts % (Manual) Lymphocytes % (Manual) Nucleated RBC % Seg Neutrophils # Seg Neutrophils # Man Lymphocytes # (Manual) Monocytes # (Manual) PT INR APTT D-Dimer POC ABG pH ABG pH POC ABG pCO2 POC ABG pO2 ABG pO2 ABG HCO3 ABG O2 Saturation ABG Base Excess ABG Hemoglobin VBG pH Oxyhemoglobin Sodium 153 H Potassium 3.0 L Chloride 118.9 H Carbon Dioxide 18 L BUN 37 H Creatinine Glucose 132 H POC Glucose 145 H Lactic Acid Calcium 7.1 L Phosphorus Magnesium Iron TIBC Direct Bilirubin AST ALT Alkaline Phosphatase Total Creatine Kinase CK-MB (CK-2) C-Reactive Protein Total Protein Albumin Vitamin B12 > 2000 H Salicylates Acetaminophen Miscellaneous Test Crossmatch 03/31/19 03/31/19 03/31/19 10:47 11:49 13:04 WBC RBC Hgb Hct MCV MCH MCHC RDW Plt Count Lymph % (Auto) Bland % (Auto) Lymph # Seg Neutrophils % Seg Neuts % (Manual) Lymphocytes % (Manual) Nucleated RBC % Seg Neutrophils # Seg Neutrophils # Man Lymphocytes # (Manual) Monocytes # (Manual) PT INR APTT D-Dimer POC ABG pH ABG pH POC ABG pCO2 POC ABG pO2 ABG pO2 ABG HCO3 ABG O2 Saturation ABG Base Excess ABG Hemoglobin VBG pH Oxyhemoglobin Sodium Potassium Chloride Carbon Dioxide BUN Creatinine Glucose POC Glucose 153 H 174 H 214 H Lactic Acid Calcium Phosphorus Magnesium Iron TIBC Direct Bilirubin AST ALT Alkaline Phosphatase Total Creatine Kinase CK-MB (CK-2) C-Reactive Protein Total Protein Albumin Vitamin B12 Salicylates Acetaminophen Miscellaneous Test Crossmatch 03/31/19 03/31/19 03/31/19 13:42 15:08 16:08 WBC RBC Hgb Hct MCV MCH MCHC RDW Plt Count Lymph % (Auto) Bland % (Auto) Lymph # Seg Neutrophils % Seg Neuts % (Manual) Lymphocytes % (Manual) Nucleated RBC % Seg Neutrophils # Seg Neutrophils # Man Lymphocytes # (Manual) Monocytes # (Manual) PT INR APTT D-Dimer POC ABG pH ABG pH POC ABG pCO2 POC ABG pO2 ABG pO2 ABG HCO3 ABG O2 Saturation ABG Base Excess ABG Hemoglobin VBG pH Oxyhemoglobin Sodium Potassium Chloride Carbon Dioxide BUN Creatinine Glucose POC Glucose 186 H 136 H 150 H Lactic Acid Calcium Phosphorus Magnesium Iron TIBC Direct Bilirubin AST ALT Alkaline Phosphatase Total Creatine Kinase CK-MB (CK-2) C-Reactive Protein Total Protein Albumin Vitamin B12 Salicylates Acetaminophen Miscellaneous Test Crossmatch 03/31/19 03/31/19 03/31/19 17:11 17:30 17:30 WBC RBC Hgb 7.7 L Hct 23.0 L MCV MCH MCHC RDW Plt Count Lymph % (Auto) Bland % (Auto) Lymph # Seg Neutrophils % Seg Neuts % (Manual) Lymphocytes % (Manual) Nucleated RBC % Seg Neutrophils # Seg Neutrophils # Man Lymphocytes # (Manual) Monocytes # (Manual) PT INR APTT D-Dimer POC ABG pH ABG pH POC ABG pCO2 POC ABG pO2 ABG pO2 ABG HCO3 ABG O2 Saturation ABG Base Excess ABG Hemoglobin VBG pH Oxyhemoglobin Sodium 153 H Potassium 3.5 L Chloride 119.3 H Carbon Dioxide 20 L BUN 34 H Creatinine Glucose 162 H POC Glucose 140 H Lactic Acid Calcium 7.6 L Phosphorus Magnesium Iron TIBC Direct Bilirubin AST ALT Alkaline Phosphatase Total Creatine Kinase CK-MB (CK-2) C-Reactive Protein Total Protein Albumin Vitamin B12 Salicylates Acetaminophen Miscellaneous Test Crossmatch 03/31/19 03/31/19 03/31/19 17:59 18:58 20:28 WBC RBC Hgb Hct MCV MCH MCHC RDW Plt Count Lymph % (Auto) Bland % (Auto) Lymph # Seg Neutrophils % Seg Neuts % (Manual) Lymphocytes % (Manual) Nucleated RBC % Seg Neutrophils # Seg Neutrophils # Man Lymphocytes # (Manual) Monocytes # (Manual) PT INR APTT D-Dimer POC ABG pH ABG pH POC ABG pCO2 POC ABG pO2 ABG pO2 ABG HCO3 ABG O2 Saturation ABG Base Excess ABG Hemoglobin VBG pH Oxyhemoglobin Sodium Potassium Chloride Carbon Dioxide BUN Creatinine Glucose POC Glucose 156 H 152 H 138 H Lactic Acid Calcium Phosphorus Magnesium Iron TIBC Direct Bilirubin AST ALT Alkaline Phosphatase Total Creatine Kinase CK-MB (CK-2) C-Reactive Protein Total Protein Albumin Vitamin B12 Salicylates Acetaminophen Miscellaneous Test Crossmatch 03/31/19 03/31/19 03/31/19 21:09 22:15 23:10 WBC RBC Hgb Hct MCV MCH MCHC RDW Plt Count Lymph % (Auto) Bland % (Auto) Lymph # Seg Neutrophils % Seg Neuts % (Manual) Lymphocytes % (Manual) Nucleated RBC % Seg Neutrophils # Seg Neutrophils # Man Lymphocytes # (Manual) Monocytes # (Manual) PT INR APTT D-Dimer POC ABG pH ABG pH POC ABG pCO2 POC ABG pO2 ABG pO2 ABG HCO3 ABG O2 Saturation ABG Base Excess ABG Hemoglobin VBG pH Oxyhemoglobin Sodium Potassium Chloride Carbon Dioxide BUN Creatinine Glucose POC Glucose 136 H 137 H 148 H Lactic Acid Calcium Phosphorus Magnesium Iron TIBC Direct Bilirubin AST ALT Alkaline Phosphatase Total Creatine Kinase CK-MB (CK-2) C-Reactive Protein Total Protein Albumin Vitamin B12 Salicylates Acetaminophen Miscellaneous Test Crossmatch 04/01/19 04/01/19 04/01/19 00:05 01:17 02:11 WBC RBC Hgb Hct MCV MCH MCHC RDW Plt Count Lymph % (Auto) Bland % (Auto) Lymph # Seg Neutrophils % Seg Neuts % (Manual) Lymphocytes % (Manual) Nucleated RBC % Seg Neutrophils # Seg Neutrophils # Man Lymphocytes # (Manual) Monocytes # (Manual) PT INR APTT D-Dimer POC ABG pH ABG pH POC ABG pCO2 POC ABG pO2 ABG pO2 ABG HCO3 ABG O2 Saturation ABG Base Excess ABG Hemoglobin VBG pH Oxyhemoglobin Sodium Potassium Chloride Carbon Dioxide BUN Creatinine Glucose POC Glucose 143 H 151 H 155 H Lactic Acid Calcium Phosphorus Magnesium Iron TIBC Direct Bilirubin AST ALT Alkaline Phosphatase Total Creatine Kinase CK-MB (CK-2) C-Reactive Protein Total Protein Albumin Vitamin B12 Salicylates Acetaminophen Miscellaneous Test Crossmatch 04/01/19 04/01/19 04/01/19 03:12 04:03 04:16 WBC RBC Hgb Hct MCV MCH MCHC RDW Plt Count Lymph % (Auto) Bland % (Auto) Lymph # Seg Neutrophils % Seg Neuts % (Manual) Lymphocytes % (Manual) Nucleated RBC % Seg Neutrophils # Seg Neutrophils # Man Lymphocytes # (Manual) Monocytes # (Manual) PT INR APTT D-Dimer POC ABG pH ABG pH POC ABG pCO2 POC ABG pO2 ABG pO2 ABG HCO3 ABG O2 Saturation ABG Base Excess ABG Hemoglobin VBG pH Oxyhemoglobin Sodium Potassium Chloride Carbon Dioxide BUN Creatinine Glucose POC Glucose 140 H 143 H 142 H Lactic Acid Calcium Phosphorus Magnesium Iron TIBC Direct Bilirubin AST ALT Alkaline Phosphatase Total Creatine Kinase CK-MB (CK-2) C-Reactive Protein Total Protein Albumin Vitamin B12 Salicylates Acetaminophen Miscellaneous Test Crossmatch 04/01/19 04/01/19 04/01/19 05:01 05:01 05:08 WBC RBC 2.05 L Hgb 6.8 L Hct 20.5 L MCV 100 H MCH 33 H MCHC RDW 17.7 H Plt Count 53 L Lymph % (Auto) Bland % (Auto) Lymph # Seg Neutrophils % Seg Neuts % (Manual) 71.0 H Lymphocytes % (Manual) Nucleated RBC % Seg Neutrophils # Seg Neutrophils # Man Lymphocytes # (Manual) Monocytes # (Manual) PT INR APTT D-Dimer POC ABG pH ABG pH POC ABG pCO2 POC ABG pO2 ABG pO2 ABG HCO3 ABG O2 Saturation ABG Base Excess ABG Hemoglobin VBG pH Oxyhemoglobin Sodium Potassium Chloride Carbon Dioxide BUN Creatinine Glucose POC Glucose 119 H Lactic Acid Calcium Phosphorus Magnesium Iron TIBC Direct Bilirubin 0.3 H AST 4601 H ALT 1542 H Alkaline Phosphatase 185 H Total Creatine Kinase CK-MB (CK-2) C-Reactive Protein Total Protein 3.8 L Albumin 1.6 L Vitamin B12 Salicylates Acetaminophen Miscellaneous Test Crossmatch 04/01/19 04/01/19 04/01/19 05:23 06:37 08:15 WBC RBC Hgb Hct MCV MCH MCHC RDW Plt Count Lymph % (Auto) Bland % (Auto) Lymph # Seg Neutrophils % Seg Neuts % (Manual) Lymphocytes % (Manual) Nucleated RBC % Seg Neutrophils # Seg Neutrophils # Man Lymphocytes # (Manual) Monocytes # (Manual) PT INR APTT D-Dimer POC ABG pH ABG pH POC ABG pCO2 POC ABG pO2 ABG pO2 ABG HCO3 ABG O2 Saturation ABG Base Excess ABG Hemoglobin VBG pH Oxyhemoglobin Sodium Potassium Chloride Carbon Dioxide BUN Creatinine Glucose POC Glucose 115 H 124 H 138 H Lactic Acid Calcium Phosphorus Magnesium Iron TIBC Direct Bilirubin AST ALT Alkaline Phosphatase Total Creatine Kinase CK-MB (CK-2) C-Reactive Protein Total Protein Albumin Vitamin B12 Salicylates Acetaminophen Miscellaneous Test Crossmatch 04/01/19 04/01/19 04/01/19 09:50 10:10 10:31 WBC RBC Hgb 6.5 L Hct 19.2 L* MCV MCH MCHC RDW Plt Count Lymph % (Auto) Bland % (Auto) Lymph # Seg Neutrophils % Seg Neuts % (Manual) Lymphocytes % (Manual) Nucleated RBC % Seg Neutrophils # Seg Neutrophils # Man Lymphocytes # (Manual) Monocytes # (Manual) PT INR APTT D-Dimer POC ABG pH ABG pH POC ABG pCO2 POC ABG pO2 ABG pO2 ABG HCO3 ABG O2 Saturation ABG Base Excess ABG Hemoglobin VBG pH Oxyhemoglobin Sodium 149 H Potassium 3.5 L Chloride 119.9 H Carbon Dioxide 21 L BUN 33 H Creatinine 0.5 L Glucose 142 H POC Glucose 185 H Lactic Acid Calcium 7.3 L Phosphorus Magnesium Iron TIBC Direct Bilirubin AST 3686 H ALT 1440 H Alkaline Phosphatase 185 H Total Creatine Kinase CK-MB (CK-2) C-Reactive Protein Total Protein 3.7 L Albumin 1.8 L Vitamin B12 Salicylates Acetaminophen Miscellaneous Test Crossmatch 04/01/19 04/01/19 04/01/19 11:35 13:05 14:35 WBC RBC Hgb Hct MCV MCH MCHC RDW Plt Count Lymph % (Auto) Bland % (Auto) Lymph # Seg Neutrophils % Seg Neuts % (Manual) Lymphocytes % (Manual) Nucleated RBC % Seg Neutrophils # Seg Neutrophils # Man Lymphocytes # (Manual) Monocytes # (Manual) PT INR APTT D-Dimer POC ABG pH ABG pH POC ABG pCO2 POC ABG pO2 ABG pO2 ABG HCO3 ABG O2 Saturation ABG Base Excess ABG Hemoglobin VBG pH Oxyhemoglobin Sodium Potassium Chloride Carbon Dioxide BUN Creatinine Glucose POC Glucose 201 H 169 H 134 H Lactic Acid Calcium Phosphorus Magnesium Iron TIBC Direct Bilirubin AST ALT Alkaline Phosphatase Total Creatine Kinase CK-MB (CK-2) C-Reactive Protein Total Protein Albumin Vitamin B12 Salicylates Acetaminophen Miscellaneous Test Crossmatch 04/01/19 04/01/19 04/01/19 17:13 17:14 18:30 WBC RBC Hgb Hct MCV MCH MCHC RDW Plt Count Lymph % (Auto) Bland % (Auto) Lymph # Seg Neutrophils % Seg Neuts % (Manual) Lymphocytes % (Manual) Nucleated RBC % Seg Neutrophils # Seg Neutrophils # Man Lymphocytes # (Manual) Monocytes # (Manual) PT INR APTT D-Dimer 5203.68 H POC ABG pH ABG pH POC ABG pCO2 POC ABG pO2 ABG pO2 ABG HCO3 ABG O2 Saturation ABG Base Excess ABG Hemoglobin VBG pH Oxyhemoglobin Sodium Potassium Chloride Carbon Dioxide BUN Creatinine Glucose POC Glucose 69 L 128 H Lactic Acid Calcium Phosphorus Magnesium Iron TIBC Direct Bilirubin AST ALT Alkaline Phosphatase Total Creatine Kinase CK-MB (CK-2) C-Reactive Protein Total Protein Albumin Vitamin B12 Salicylates Acetaminophen Miscellaneous Test Crossmatch 04/01/19 04/01/19 04/02/19 22:50 Unknown 03:40 WBC RBC Hgb Hct MCV MCH MCHC RDW Plt Count Lymph % (Auto) Bland % (Auto) Lymph # Seg Neutrophils % Seg Neuts % (Manual) Lymphocytes % (Manual) Nucleated RBC % Seg Neutrophils # Seg Neutrophils # Man Lymphocytes # (Manual) Monocytes # (Manual) PT INR APTT D-Dimer POC ABG pH ABG pH POC ABG pCO2 POC ABG pO2 ABG pO2 78.3 L 142.8 H ABG HCO3 15.5 L ABG O2 Saturation ABG Base Excess -3.5 L -8.2 L ABG Hemoglobin 6.8 L 8.2 L VBG pH Oxyhemoglobin 94.3 L Sodium Potassium Chloride Carbon Dioxide BUN Creatinine Glucose POC Glucose 342 H Lactic Acid Calcium Phosphorus Magnesium Iron TIBC Direct Bilirubin AST ALT Alkaline Phosphatase Total Creatine Kinase CK-MB (CK-2) C-Reactive Protein Total Protein Albumin Vitamin B12 Salicylates Acetaminophen Miscellaneous Test Crossmatch 04/02/19 04/02/19 04/02/19 03:49 06:50 07:48 WBC RBC 2.65 L Hgb 8.6 L Hct 25.1 L MCV MCH MCHC RDW 17.6 H Plt Count 48 L Lymph % (Auto) Bland % (Auto) Lymph # Seg Neutrophils % Seg Neuts % (Manual) Lymphocytes % (Manual) Nucleated RBC % Seg Neutrophils # Seg Neutrophils # Man Lymphocytes # (Manual) Monocytes # (Manual) PT INR APTT D-Dimer POC ABG pH ABG pH POC ABG pCO2 POC ABG pO2 ABG pO2 ABG HCO3 ABG O2 Saturation ABG Base Excess ABG Hemoglobin VBG pH Oxyhemoglobin Sodium Potassium Chloride Carbon Dioxide BUN Creatinine Glucose POC Glucose 247 H 200 H Lactic Acid Calcium Phosphorus Magnesium Iron TIBC Direct Bilirubin AST ALT Alkaline Phosphatase Total Creatine Kinase CK-MB (CK-2) C-Reactive Protein Total Protein Albumin Vitamin B12 Salicylates Acetaminophen Miscellaneous Test Crossmatch 04/02/19 04/02/19 04/02/19 07:48 11:18 14:07 WBC RBC Hgb Hct MCV MCH MCHC RDW Plt Count Lymph % (Auto) Bland % (Auto) Lymph # Seg Neutrophils % Seg Neuts % (Manual) Lymphocytes % (Manual) Nucleated RBC % Seg Neutrophils # Seg Neutrophils # Man Lymphocytes # (Manual) Monocytes # (Manual) PT INR APTT D-Dimer POC ABG pH ABG pH POC ABG pCO2 POC ABG pO2 ABG pO2 ABG HCO3 ABG O2 Saturation ABG Base Excess ABG Hemoglobin VBG pH Oxyhemoglobin Sodium Potassium 3.5 L Chloride 115.7 H Carbon Dioxide 19 L BUN 29 H Creatinine 0.5 L Glucose 159 H POC Glucose 154 H 149 H Lactic Acid Calcium 7.5 L Phosphorus Magnesium Iron TIBC Direct Bilirubin AST 1418 H ALT 1134 H Alkaline Phosphatase 242 H Total Creatine Kinase CK-MB (CK-2) C-Reactive Protein Total Protein 4.2 L Albumin 2.1 L Vitamin B12 Salicylates Acetaminophen Miscellaneous Test Crossmatch 04/02/19 04/02/19 04/02/19 18:09 19:46 23:05 WBC RBC Hgb Hct MCV MCH MCHC RDW Plt Count Lymph % (Auto) Bland % (Auto) Lymph # Seg Neutrophils % Seg Neuts % (Manual) Lymphocytes % (Manual) Nucleated RBC % Seg Neutrophils # Seg Neutrophils # Man Lymphocytes # (Manual) Monocytes # (Manual) PT INR APTT D-Dimer POC ABG pH ABG pH POC ABG pCO2 POC ABG pO2 ABG pO2 ABG HCO3 ABG O2 Saturation ABG Base Excess ABG Hemoglobin VBG pH Oxyhemoglobin Sodium Potassium Chloride Carbon Dioxide BUN Creatinine Glucose POC Glucose 188 H 209 H 247 H Lactic Acid Calcium Phosphorus Magnesium Iron TIBC Direct Bilirubin AST ALT Alkaline Phosphatase Total Creatine Kinase CK-MB (CK-2) C-Reactive Protein Total Protein Albumin Vitamin B12 Salicylates Acetaminophen Miscellaneous Test Crossmatch 04/03/19 04/03/19 04/03/19 02:58 03:40 03:40 WBC RBC 2.87 L Hgb 9.3 L Hct 27.0 L MCV MCH MCHC RDW 17.2 H Plt Count 65 L Lymph % (Auto) Bland % (Auto) 9.8 H Lymph # 1.1 L Seg Neutrophils % Seg Neuts % (Manual) Lymphocytes % (Manual) Nucleated RBC % Seg Neutrophils # Seg Neutrophils # Man Lymphocytes # (Manual) Monocytes # (Manual) PT INR APTT D-Dimer POC ABG pH ABG pH POC ABG pCO2 POC ABG pO2 ABG pO2 ABG HCO3 ABG O2 Saturation ABG Base Excess ABG Hemoglobin VBG pH Oxyhemoglobin Sodium 147 H Potassium 3.5 L Chloride 116.7 H Carbon Dioxide 18 L BUN Creatinine 0.4 L Glucose 150 H POC Glucose 166 H Lactic Acid Calcium 8.1 L Phosphorus 2.20 L Magnesium Iron TIBC Direct Bilirubin AST 594 H ALT 861 H Alkaline Phosphatase 299 H Total Creatine Kinase CK-MB (CK-2) C-Reactive Protein Total Protein 4.4 L Albumin 2.1 L Vitamin B12 Salicylates Acetaminophen Miscellaneous Test Crossmatch 04/03/19 04/03/19 04/03/19 05:35 07:02 08:23 WBC RBC Hgb Hct MCV MCH MCHC RDW Plt Count Lymph % (Auto) B[place] % (Auto) Lymph # Seg Neutrophils % Seg Neuts % (Manual) Lymphocytes % (Manual) Nucleated RBC % Seg Neutrophils # Seg Neutrophils # Man Lymphocytes # (Manual) Monocytes # (Manual) PT INR APTT D-Dimer POC ABG pH ABG pH POC ABG pCO2 POC ABG pO2 ABG pO2 97.7 H ABG HCO3 19.3 L ABG O2 Saturation ABG Base Excess -5.0 L ABG Hemoglobin 8.0 L VBG pH Oxyhemoglobin Sodium Potassium Chloride Carbon Dioxide BUN Creatinine Glucose POC Glucose 135 H 132 H Lactic Acid Calcium Phosphorus Magnesium Iron TIBC Direct Bilirubin AST ALT Alkaline Phosphatase Total Creatine Kinase CK-MB (CK-2) C-Reactive Protein Total Protein Albumin Vitamin B12 Salicylates Acetaminophen Miscellaneous Test Crossmatch 04/03/19 04/03/19 04/03/19 11:58 15:11 17:53 WBC RBC Hgb Hct MCV MCH MCHC RDW Plt Count Lymph % (Auto) Bland % (Auto) Lymph # Seg Neutrophils % Seg Neuts % (Manual) Lymphocytes % (Manual) Nucleated RBC % Seg Neutrophils # Seg Neutrophils # Man Lymphocytes # (Manual) Monocytes # (Manual) PT INR APTT D-Dimer POC ABG pH ABG pH POC ABG pCO2 POC ABG pO2 ABG pO2 ABG HCO3 ABG O2 Saturation ABG Base Excess ABG Hemoglobin VBG pH Oxyhemoglobin Sodium Potassium Chloride Carbon Dioxide BUN Creatinine Glucose POC Glucose 179 H 213 H 223 H Lactic Acid Calcium Phosphorus Magnesium Iron TIBC Direct Bilirubin AST ALT Alkaline Phosphatase Total Creatine Kinase CK-MB (CK-2) C-Reactive Protein Total Protein Albumin Vitamin B12 Salicylates Acetaminophen Miscellaneous Test Crossmatch 04/03/19 04/04/19 04/04/19 23:06 02:36 06:41 WBC RBC Hgb Hct MCV MCH MCHC RDW Plt Count Lymph % (Auto) Bland % (Auto) Lymph # Seg Neutrophils % Seg Neuts % (Manual) Lymphocytes % (Manual) Nucleated RBC % Seg Neutrophils # Seg Neutrophils # Man Lymphocytes # (Manual) Monocytes # (Manual) PT INR APTT D-Dimer POC ABG pH ABG pH POC ABG pCO2 POC ABG pO2 ABG pO2 ABG HCO3 ABG O2 Saturation ABG Base Excess ABG Hemoglobin VBG pH Oxyhemoglobin Sodium Potassium Chloride Carbon Dioxide BUN Creatinine Glucose POC Glucose 189 H 157 H 131 H Lactic Acid Calcium Phosphorus Magnesium Iron TIBC Direct Bilirubin AST ALT Alkaline Phosphatase Total Creatine Kinase CK-MB (CK-2) C-Reactive Protein Total Protein Albumin Vitamin B12 Salicylates Acetaminophen Miscellaneous Test Crossmatch 04/04/19 04/04/19 04/04/19 11:42 15:45 18:21 WBC RBC Hgb Hct MCV MCH MCHC RDW Plt Count Lymph % (Auto) [place] % (Auto) Lymph # Seg Neutrophils % Seg Neuts % (Manual) Lymphocytes % (Manual) Nucleated RBC % Seg Neutrophils # Seg Neutrophils # Man Lymphocytes # (Manual) Monocytes # (Manual) PT INR APTT D-Dimer POC ABG pH ABG pH POC ABG pCO2 POC ABG pO2 ABG pO2 ABG HCO3 ABG O2 Saturation ABG Base Excess ABG Hemoglobin VBG pH Oxyhemoglobin Sodium Potassium Chloride Carbon Dioxide BUN Creatinine Glucose POC Glucose 233 H 236 H 255 H Lactic Acid Calcium Phosphorus Magnesium Iron TIBC Direct Bilirubin AST ALT Alkaline Phosphatase Total Creatine Kinase CK-MB (CK-2) C-Reactive Protein Total Protein Albumin Vitamin B12 Salicylates Acetaminophen Miscellaneous Test Crossmatch 04/04/19 04/05/19 04/05/19 21:21 03:06 06:05 WBC RBC 2.68 L Hgb 8.5 L Hct 26.3 L MCV 98 H MCH MCHC RDW 17.4 H Plt Count Lymph % (Auto) Bland % (Auto) Lymph # Seg Neutrophils % Seg Neuts % (Manual) Lymphocytes % (Manual) Nucleated RBC % Seg Neutrophils # Seg Neutrophils # Man Lymphocytes # (Manual) Monocytes # (Manual) PT INR APTT D-Dimer POC ABG pH ABG pH POC ABG pCO2 POC ABG pO2 ABG pO2 ABG HCO3 ABG O2 Saturation ABG Base Excess ABG Hemoglobin VBG pH Oxyhemoglobin Sodium Potassium Chloride Carbon Dioxide BUN Creatinine Glucose POC Glucose 132 H 161 H Lactic Acid Calcium Phosphorus Magnesium Iron TIBC Direct Bilirubin AST ALT Alkaline Phosphatase Total Creatine Kinase CK-MB (CK-2) C-Reactive Protein Total Protein Albumin Vitamin B12 Salicylates Acetaminophen Miscellaneous Test Crossmatch 04/05/19 04/05/19 04/05/19 06:05 06:49 10:23 WBC RBC Hgb Hct MCV MCH MCHC RDW Plt Count Lymph % (Auto) Bland % (Auto) Lymph # Seg Neutrophils % Seg Neuts % (Manual) Lymphocytes % (Manual) Nucleated RBC % Seg Neutrophils # Seg Neutrophils # Man Lymphocytes # (Manual) Monocytes # (Manual) PT INR APTT D-Dimer POC ABG pH ABG pH POC ABG pCO2 POC ABG pO2 ABG pO2 ABG HCO3 ABG O2 Saturation ABG Base Excess ABG Hemoglobin VBG pH Oxyhemoglobin Sodium Potassium Chloride 112.5 H Carbon Dioxide BUN Creatinine 0.2 L Glucose 237 H POC Glucose 283 H 296 H Lactic Acid Calcium 7.9 L Phosphorus Magnesium Iron TIBC Direct Bilirubin AST ALT Alkaline Phosphatase Total Creatine Kinase CK-MB (CK-2) C-Reactive Protein Total Protein Albumin Vitamin B12 Salicylates Acetaminophen Miscellaneous Test Crossmatch 04/05/19 04/05/19 04/05/19 14:46 18:19 20:35 WBC RBC Hgb Hct MCV MCH MCHC RDW Plt Count Lymph % (Auto) Bland % (Auto) Lymph # Seg Neutrophils % Seg Neuts % (Manual) Lymphocytes % (Manual) Nucleated RBC % Seg Neutrophils # Seg Neutrophils # Man Lymphocytes # (Manual) Monocytes # (Manual) PT INR APTT D-Dimer POC ABG pH ABG pH POC ABG pCO2 POC ABG pO2 ABG pO2 ABG HCO3 ABG O2 Saturation ABG Base Excess ABG Hemoglobin VBG pH Oxyhemoglobin Sodium Potassium Chloride Carbon Dioxide BUN Creatinine Glucose POC Glucose 225 H 259 H 236 H Lactic Acid Calcium Phosphorus Magnesium Iron TIBC Direct Bilirubin AST ALT Alkaline Phosphatase Total Creatine Kinase CK-MB (CK-2) C-Reactive Protein Total Protein Albumin Vitamin B12 Salicylates Acetaminophen Miscellaneous Test Crossmatch 04/05/19 04/06/19 04/06/19 23:11 00:06 03:14 WBC RBC Hgb Hct MCV MCH MCHC RDW Plt Count Lymph % (Auto) Bland % (Auto) Lymph # Seg Neutrophils % Seg Neuts % (Manual) Lymphocytes % (Manual) Nucleated RBC % Seg Neutrophils # Seg Neutrophils # Man Lymphocytes # (Manual) Monocytes # (Manual) PT INR APTT D-Dimer 4526.86 H POC ABG pH ABG pH POC ABG pCO2 POC ABG pO2 ABG pO2 ABG HCO3 ABG O2 Saturation ABG Base Excess ABG Hemoglobin VBG pH Oxyhemoglobin Sodium Potassium Chloride Carbon Dioxide BUN Creatinine Glucose POC Glucose 205 H 228 H Lactic Acid Calcium Phosphorus Magnesium Iron TIBC Direct Bilirubin AST ALT Alkaline Phosphatase Total Creatine Kinase CK-MB (CK-2) C-Reactive Protein Total Protein Albumin Vitamin B12 Salicylates Acetaminophen Miscellaneous Test Crossmatch 04/06/19 04/06/19 04/06/19 05:20 05:20 07:57 WBC 15.1 H RBC 2.90 L Hgb 9.1 L Hct 28.0 L MCV MCH MCHC RDW 17.3 H Plt Count Lymph % (Auto) Bland % (Auto) Lymph # Seg Neutrophils % Seg Neuts % (Manual) Lymphocytes % (Manual) Nucleated RBC % Seg Neutrophils # Seg Neutrophils # Man Lymphocytes # (Manual) Monocytes # (Manual) PT INR APTT D-Dimer POC ABG pH ABG pH POC ABG pCO2 POC ABG pO2 ABG pO2 ABG HCO3 ABG O2 Saturation ABG Base Excess ABG Hemoglobin VBG pH Oxyhemoglobin Sodium Potassium Chloride Carbon Dioxide BUN Creatinine 0.2 L Glucose 161 H POC Glucose 191 H Lactic Acid Calcium 8.0 L Phosphorus Magnesium Iron TIBC Direct Bilirubin AST ALT Alkaline Phosphatase Total Creatine Kinase CK-MB (CK-2) C-Reactive Protein Total Protein Albumin Vitamin B12 Salicylates Acetaminophen Miscellaneous Test Crossmatch 04/06/19 04/06/19 04/06/19 12:09 18:24 22:07 WBC RBC Hgb Hct MCV MCH MCHC RDW Plt Count Lymph % (Auto) B[place] % (Auto) Lymph # Seg Neutrophils % Seg Neuts % (Manual) Lymphocytes % (Manual) Nucleated RBC % Seg Neutrophils # Seg Neutrophils # Man Lymphocytes # (Manual) Monocytes # (Manual) PT INR APTT D-Dimer POC ABG pH ABG pH POC ABG pCO2 POC ABG pO2 ABG pO2 ABG HCO3 ABG O2 Saturation ABG Base Excess ABG Hemoglobin VBG pH Oxyhemoglobin Sodium Potassium Chloride Carbon Dioxide BUN Creatinine Glucose POC Glucose 143 H 161 H 140 H Lactic Acid Calcium Phosphorus Magnesium Iron TIBC Direct Bilirubin AST ALT Alkaline Phosphatase Total Creatine Kinase CK-MB (CK-2) C-Reactive Protein Total Protein Albumin Vitamin B12 Salicylates Acetaminophen Miscellaneous Test Crossmatch 09/14/19 09/14/19 09/14/19 03:00 04:30 04:30 WBC 13.0 H RBC 2.65 L Hgb 8.3 L Hct 25.5 L MCV MCH MCHC RDW 17.0 H Plt Count Lymph % (Auto) Bland % (Auto) Lymph # Seg Neutrophils % Seg Neuts % (Manual) Lymphocytes % (Manual) Nucleated RBC % Seg Neutrophils # Seg Neutrophils # Man Lymphocytes # (Manual) Monocytes # (Manual) PT INR APTT D-Dimer POC ABG pH ABG pH POC ABG pCO2 POC ABG pO2 ABG pO2 ABG HCO3 ABG O2 Saturation ABG Base Excess ABG Hemoglobin VBG pH Oxyhemoglobin Sodium Potassium Chloride Carbon Dioxide BUN Creatinine 0.2 L Glucose 208 H POC Glucose 224 H Lactic Acid Calcium 7.7 L Phosphorus Magnesium Iron TIBC Direct Bilirubin AST ALT Alkaline Phosphatase Total Creatine Kinase CK-MB (CK-2) C-Reactive Protein Total Protein Albumin Vitamin B12 Salicylates Acetaminophen Miscellaneous Test Crossmatch 04/07/19 04/07/19 04/07/19 05:47 08:27 10:33 WBC RBC Hgb Hct MCV MCH MCHC RDW Plt Count Lymph % (Auto) Bland % (Auto) Lymph # Seg Neutrophils % Seg Neuts % (Manual) Lymphocytes % (Manual) Nucleated RBC % Seg Neutrophils # Seg Neutrophils # Man Lymphocytes # (Manual) Monocytes # (Manual) PT INR APTT D-Dimer POC ABG pH ABG pH POC ABG pCO2 POC ABG pO2 ABG pO2 ABG HCO3 ABG O2 Saturation ABG Base Excess ABG Hemoglobin VBG pH Oxyhemoglobin Sodium Potassium Chloride Carbon Dioxide BUN Creatinine Glucose POC Glucose 225 H 176 H 207 H Lactic Acid Calcium Phosphorus Magnesium Iron TIBC Direct Bilirubin AST ALT Alkaline Phosphatase Total Creatine Kinase CK-MB (CK-2) C-Reactive Protein Total Protein Albumin Vitamin B12 Salicylates Acetaminophen Miscellaneous Test Crossmatch 04/07/19 04/07/19 04/07/19 14:13 18:32 22:42 WBC RBC Hgb Hct MCV MCH MCHC RDW Plt Count Lymph % (Auto) Bland % (Auto) Lymph # Seg Neutrophils % Seg Neuts % (Manual) Lymphocytes % (Manual) Nucleated RBC % Seg Neutrophils # Seg Neutrophils # Man Lymphocytes # (Manual) Monocytes # (Manual) PT INR APTT D-Dimer POC ABG pH ABG pH POC ABG pCO2 POC ABG pO2 ABG pO2 ABG HCO3 ABG O2 Saturation ABG Base Excess ABG Hemoglobin VBG pH Oxyhemoglobin Sodium Potassium Chloride Carbon Dioxide BUN Creatinine Glucose POC Glucose 219 H 227 H 238 H Lactic Acid Calcium Phosphorus Magnesium Iron TIBC Direct Bilirubin AST ALT Alkaline Phosphatase Total Creatine Kinase CK-MB (CK-2) C-Reactive Protein Total Protein Albumin Vitamin B12 Salicylates Acetaminophen Miscellaneous Test Crossmatch 04/08/19 04/08/19 04/08/19 02:31 05:37 14:10 WBC RBC Hgb Hct MCV MCH MCHC RDW Plt Count Lymph % (Auto) Bland % (Auto) Lymph # Seg Neutrophils % Seg Neuts % (Manual) Lymphocytes % (Manual) Nucleated RBC % Seg Neutrophils # Seg Neutrophils # Man Lymphocytes # (Manual) Monocytes # (Manual) PT INR APTT D-Dimer POC ABG pH ABG pH POC ABG pCO2 POC ABG pO2 ABG pO2 ABG HCO3 ABG O2 Saturation ABG Base Excess ABG Hemoglobin VBG pH Oxyhemoglobin Sodium Potassium Chloride Carbon Dioxide BUN Creatinine Glucose POC Glucose 194 H 194 H 139 H Lactic Acid Calcium Phosphorus Magnesium Iron TIBC Direct Bilirubin AST ALT Alkaline Phosphatase Total Creatine Kinase CK-MB (CK-2) C-Reactive Protein Total Protein Albumin Vitamin B12 Salicylates Acetaminophen Miscellaneous Test Crossmatch 04/08/19 04/08/19 04/09/19 17:43 23:20 03:28 WBC RBC Hgb Hct MCV MCH MCHC RDW Plt Count Lymph % (Auto) Bland % (Auto) Lymph # Seg Neutrophils % Seg Neuts % (Manual) Lymphocytes % (Manual) Nucleated RBC % Seg Neutrophils # Seg Neutrophils # Man Lymphocytes # (Manual) Monocytes # (Manual) PT INR APTT D-Dimer POC ABG pH ABG pH POC ABG pCO2 POC ABG pO2 ABG pO2 ABG HCO3 ABG O2 Saturation ABG Base Excess ABG Hemoglobin VBG pH Oxyhemoglobin Sodium Potassium Chloride Carbon Dioxide BUN Creatinine Glucose POC Glucose 261 H 277 H 301 H Lactic Acid Calcium Phosphorus Magnesium Iron TIBC Direct Bilirubin AST ALT Alkaline Phosphatase Total Creatine Kinase CK-MB (CK-2) C-Reactive Protein Total Protein Albumin Vitamin B12 Salicylates Acetaminophen Miscellaneous Test Crossmatch 04/09/19 04/09/19 04/09/19 05:35 05:35 05:35 WBC RBC 2.78 L Hgb 9.0 L Hct 26.7 L MCV MCH MCHC RDW 17.0 H Plt Count Lymph % (Auto) Bland % (Auto) Lymph # Seg Neutrophils % Seg Neuts % (Manual) Lymphocytes % (Manual) Nucleated RBC % Seg Neutrophils # Seg Neutrophils # Man Lymphocytes # (Manual) Monocytes # (Manual) PT INR APTT D-Dimer POC ABG pH ABG pH POC ABG pCO2 POC ABG pO2 ABG pO2 ABG HCO3 ABG O2 Saturation ABG Base Excess ABG Hemoglobin VBG pH Oxyhemoglobin Sodium Potassium Chloride Carbon Dioxide 31 H BUN Creatinine 0.2 L Glucose 218 H POC Glucose 240 H Lactic Acid Calcium Phosphorus Magnesium Iron TIBC Direct Bilirubin AST ALT Alkaline Phosphatase Total Creatine Kinase CK-MB (CK-2) C-Reactive Protein Total Protein Albumin Vitamin B12 Salicylates Acetaminophen Miscellaneous Test Crossmatch 04/09/19 04/09/19 04/09/19 09:01 12:23 17:33 WBC RBC Hgb Hct MCV MCH MCHC RDW Plt Count Lymph % (Auto) Bland % (Auto) Lymph # Seg Neutrophils % Seg Neuts % (Manual) Lymphocytes % (Manual) Nucleated RBC % Seg Neutrophils # Seg Neutrophils # Man Lymphocytes # (Manual) Monocytes # (Manual) PT INR APTT D-Dimer POC ABG pH ABG pH POC ABG pCO2 POC ABG pO2 ABG pO2 ABG HCO3 ABG O2 Saturation ABG Base Excess ABG Hemoglobin VBG pH Oxyhemoglobin Sodium Potassium Chloride Carbon Dioxide BUN Creatinine Glucose POC Glucose 160 H 162 H 149 H Lactic Acid Calcium Phosphorus Magnesium Iron TIBC Direct Bilirubin AST ALT Alkaline Phosphatase Total Creatine Kinase CK-MB (CK-2) C-Reactive Protein Total Protein Albumin Vitamin B12 Salicylates Acetaminophen Miscellaneous Test Crossmatch 04/09/19 04/09/19 04/10/19 21:26 22:28 03:16 WBC RBC Hgb Hct MCV MCH MCHC RDW Plt Count Lymph % (Auto) Bland % (Auto) Lymph # Seg Neutrophils % Seg Neuts % (Manual) Lymphocytes % (Manual) Nucleated RBC % Seg Neutrophils # Seg Neutrophils # Man Lymphocytes # (Manual) Monocytes # (Manual) PT INR APTT D-Dimer POC ABG pH ABG pH POC ABG pCO2 POC ABG pO2 ABG pO2 ABG HCO3 ABG O2 Saturation ABG Base Excess ABG Hemoglobin VBG pH Oxyhemoglobin Sodium Potassium Chloride Carbon Dioxide BUN Creatinine Glucose POC Glucose 196 H 224 H 163 H Lactic Acid Calcium Phosphorus Magnesium Iron TIBC Direct Bilirubin AST ALT Alkaline Phosphatase Total Creatine Kinase CK-MB (CK-2) C-Reactive Protein Total Protein Albumin Vitamin B12 Salicylates Acetaminophen Miscellaneous Test Crossmatch 04/10/19 04/10/19 04/10/19 04:15 04:15 05:30 WBC RBC 2.88 L Hgb 9.2 L Hct 27.9 L MCV MCH MCHC RDW 17.0 H Plt Count 454 H Lymph % (Auto) Bland % (Auto) Lymph # Seg Neutrophils % Seg Neuts % (Manual) Lymphocytes % (Manual) Nucleated RBC % Seg Neutrophils # Seg Neutrophils # Man Lymphocytes # (Manual) Monocytes # (Manual) PT INR APTT D-Dimer POC ABG pH ABG pH POC ABG pCO2 POC ABG pO2 ABG pO2 ABG HCO3 ABG O2 Saturation ABG Base Excess ABG Hemoglobin VBG pH Oxyhemoglobin Sodium Potassium Chloride Carbon Dioxide 32 H BUN Creatinine 0.2 L Glucose 126 H POC Glucose 135 H Lactic Acid Calcium Phosphorus Magnesium Iron TIBC Direct Bilirubin AST ALT Alkaline Phosphatase Total Creatine Kinase CK-MB (CK-2) C-Reactive Protein Total Protein Albumin Vitamin B12 Salicylates Acetaminophen Miscellaneous Test Crossmatch 04/10/19 04/10/19 04/10/19 12:14 15:29 23:38 WBC RBC Hgb Hct MCV MCH MCHC RDW Plt Count Lymph % (Auto) Bland % (Auto) Lymph # Seg Neutrophils % Seg Neuts % (Manual) Lymphocytes % (Manual) Nucleated RBC % Seg Neutrophils # Seg Neutrophils # Man Lymphocytes # (Manual) Monocytes # (Manual) PT INR APTT D-Dimer POC ABG pH ABG pH POC ABG pCO2 POC ABG pO2 ABG pO2 ABG HCO3 ABG O2 Saturation ABG Base Excess ABG Hemoglobin VBG pH Oxyhemoglobin Sodium Potassium Chloride Carbon Dioxide BUN Creatinine Glucose POC Glucose 109 H 149 H 268 H Lactic Acid Calcium Phosphorus Magnesium Iron TIBC Direct Bilirubin AST ALT Alkaline Phosphatase Total Creatine Kinase CK-MB (CK-2) C-Reactive Protein Total Protein Albumin Vitamin B12 Salicylates Acetaminophen Miscellaneous Test Crossmatch 04/11/19 04/11/19 04/11/19 05:27 12:08 18:08 WBC RBC Hgb Hct MCV MCH MCHC RDW Plt Count Lymph % (Auto) Bland % (Auto) Lymph # Seg Neutrophils % Seg Neuts % (Manual) Lymphocytes % (Manual) Nucleated RBC % Seg Neutrophils # Seg Neutrophils # Man Lymphocytes # (Manual) Monocytes # (Manual) PT INR APTT D-Dimer POC ABG pH ABG pH POC ABG pCO2 POC ABG pO2 ABG pO2 ABG HCO3 ABG O2 Saturation ABG Base Excess ABG Hemoglobin VBG pH Oxyhemoglobin Sodium Potassium Chloride Carbon Dioxide BUN Creatinine Glucose POC Glucose 109 H 185 H 190 H Lactic Acid Calcium Phosphorus Magnesium Iron TIBC Direct Bilirubin AST ALT Alkaline Phosphatase Total Creatine Kinase CK-MB (CK-2) C-Reactive Protein Total Protein Albumin Vitamin B12 Salicylates Acetaminophen Miscellaneous Test Crossmatch 04/11/19 04/12/19 04/12/19 23:23 06:00 11:42 WBC RBC Hgb Hct MCV MCH MCHC RDW Plt Count Lymph % (Auto) Bland % (Auto) Lymph # Seg Neutrophils % Seg Neuts % (Manual) Lymphocytes % (Manual) Nucleated RBC % Seg Neutrophils # Seg Neutrophils # Man Lymphocytes # (Manual) Monocytes # (Manual) PT INR APTT D-Dimer POC ABG pH ABG pH POC ABG pCO2 POC ABG pO2 ABG pO2 ABG HCO3 ABG O2 Saturation ABG Base Excess ABG Hemoglobin VBG pH Oxyhemoglobin Sodium Potassium Chloride Carbon Dioxide BUN Creatinine Glucose POC Glucose 127 H 201 H 161 H Lactic Acid Calcium Phosphorus Magnesium Iron TIBC Direct Bilirubin AST ALT Alkaline Phosphatase Total Creatine Kinase CK-MB (CK-2) C-Reactive Protein Total Protein Albumin Vitamin B12 Salicylates Acetaminophen Miscellaneous Test Crossmatch 04/12/19 04/12/19 04/12/19 17:56 20:07 21:59 WBC RBC Hgb Hct MCV MCH MCHC RDW Plt Count Lymph % (Auto) [place] % (Auto) Lymph # Seg Neutrophils % Seg Neuts % (Manual) Lymphocytes % (Manual) Nucleated RBC % Seg Neutrophils # Seg Neutrophils # Man Lymphocytes # (Manual) Monocytes # (Manual) PT INR APTT D-Dimer POC ABG pH ABG pH POC ABG pCO2 POC ABG pO2 ABG pO2 ABG HCO3 ABG O2 Saturation ABG Base Excess ABG Hemoglobin VBG pH Oxyhemoglobin Sodium Potassium Chloride Carbon Dioxide BUN Creatinine Glucose POC Glucose 145 H 158 H 203 H Lactic Acid Calcium Phosphorus Magnesium Iron TIBC Direct Bilirubin AST ALT Alkaline Phosphatase Total Creatine Kinase CK-MB (CK-2) C-Reactive Protein Total Protein Albumin Vitamin B12 Salicylates Acetaminophen Miscellaneous Test Crossmatch 04/12/19 04/13/19 04/13/19 23:37 08:50 08:50 WBC 15.7 H RBC 3.12 L Hgb Hct 30.2 L MCV MCH 33 H MCHC RDW 18.0 H Plt Count 678 H Lymph % (Auto) Bland % (Auto) Lymph # Seg Neutrophils % Seg Neuts % (Manual) Lymphocytes % (Manual) Nucleated RBC % Seg Neutrophils # Seg Neutrophils # Man Lymphocytes # (Manual) Monocytes # (Manual) PT INR APTT D-Dimer POC ABG pH ABG pH POC ABG pCO2 POC ABG pO2 ABG pO2 ABG HCO3 ABG O2 Saturation ABG Base Excess ABG Hemoglobin VBG pH Oxyhemoglobin Sodium Potassium Chloride Carbon Dioxide BUN Creatinine < 0.2 L Glucose 46 L POC Glucose 238 H Lactic Acid Calcium Phosphorus Magnesium Iron TIBC Direct Bilirubin AST ALT Alkaline Phosphatase Total Creatine Kinase CK-MB (CK-2) C-Reactive Protein Total Protein Albumin Vitamin B12 Salicylates Acetaminophen Miscellaneous Test Crossmatch 04/13/19 04/13/19 04/13/19 11:56 17:27 23:57 WBC RBC Hgb Hct MCV MCH MCHC RDW Plt Count Lymph % (Auto) [place] % (Auto) Lymph # Seg Neutrophils % Seg Neuts % (Manual) Lymphocytes % (Manual) Nucleated RBC % Seg Neutrophils # Seg Neutrophils # Man Lymphocytes # (Manual) Monocytes # (Manual) PT INR APTT D-Dimer POC ABG pH ABG pH POC ABG pCO2 POC ABG pO2 ABG pO2 ABG HCO3 ABG O2 Saturation ABG Base Excess ABG Hemoglobin VBG pH Oxyhemoglobin Sodium Potassium Chloride Carbon Dioxide BUN Creatinine Glucose POC Glucose 40 L 66 L 65 L Lactic Acid Calcium Phosphorus Magnesium Iron TIBC Direct Bilirubin AST ALT Alkaline Phosphatase Total Creatine Kinase CK-MB (CK-2) C-Reactive Protein Total Protein Albumin Vitamin B12 Salicylates Acetaminophen Miscellaneous Test Crossmatch 04/14/19 04/14/19 04/14/19 05:28 08:20 08:20 WBC 17.8 H RBC 3.26 L Hgb Hct MCV 98 H MCH MCHC RDW 18.3 H Plt Count 622 H Lymph % (Auto) [place] % (Auto) Lymph # Seg Neutrophils % Seg Neuts % (Manual) Lymphocytes % (Manual) Nucleated RBC % Seg Neutrophils # Seg Neutrophils # Man Lymphocytes # (Manual) Monocytes # (Manual) PT INR APTT D-Dimer POC ABG pH ABG pH POC ABG pCO2 POC ABG pO2 ABG pO2 ABG HCO3 ABG O2 Saturation ABG Base Excess ABG Hemoglobin VBG pH Oxyhemoglobin Sodium Potassium Chloride Carbon Dioxide BUN 6 L Creatinine < 0.2 L Glucose 154 H POC Glucose 149 H Lactic Acid Calcium Phosphorus Magnesium Iron TIBC Direct Bilirubin AST ALT Alkaline Phosphatase Total Creatine Kinase CK-MB (CK-2) C-Reactive Protein Total Protein Albumin Vitamin B12 Salicylates Acetaminophen Miscellaneous Test Crossmatch 04/14/19 04/14/19 04/14/19 12:16 17:54 23:35 WBC RBC Hgb Hct MCV MCH MCHC RDW Plt Count Lymph % (Auto) [place] % (Auto) Lymph # Seg Neutrophils % Seg Neuts % (Manual) Lymphocytes % (Manual) Nucleated RBC % Seg Neutrophils # Seg Neutrophils # Man Lymphocytes # (Manual) Monocytes # (Manual) PT INR APTT D-Dimer POC ABG pH ABG pH POC ABG pCO2 POC ABG pO2 ABG pO2 ABG HCO3 ABG O2 Saturation ABG Base Excess ABG Hemoglobin VBG pH Oxyhemoglobin Sodium Potassium Chloride Carbon Dioxide BUN Creatinine Glucose POC Glucose 176 H 224 H 173 H Lactic Acid Calcium Phosphorus Magnesium Iron TIBC Direct Bilirubin AST ALT Alkaline Phosphatase Total Creatine Kinase CK-MB (CK-2) C-Reactive Protein Total Protein Albumin Vitamin B12 Salicylates Acetaminophen Miscellaneous Test Crossmatch 04/15/19 04/15/19 04/15/19 05:44 12:44 18:06 WBC RBC Hgb Hct MCV MCH MCHC RDW Plt Count Lymph % (Auto) [place] % (Auto) Lymph # Seg Neutrophils % Seg Neuts % (Manual) Lymphocytes % (Manual) Nucleated RBC % Seg Neutrophils # Seg Neutrophils # Man Lymphocytes # (Manual) Monocytes # (Manual) PT INR APTT D-Dimer POC ABG pH 7.461 H ABG pH POC ABG pCO2 45.5 H POC ABG pO2 ABG pO2 ABG HCO3 ABG O2 Saturation ABG Base Excess ABG Hemoglobin VBG pH Oxyhemoglobin Sodium Potassium Chloride Carbon Dioxide BUN Creatinine Glucose POC Glucose 255 H 365 H Lactic Acid Calcium Phosphorus Magnesium Iron TIBC Direct Bilirubin AST ALT Alkaline Phosphatase Total Creatine Kinase CK-MB (CK-2) C-Reactive Protein Total Protein Albumin Vitamin B12 Salicylates Acetaminophen Miscellaneous Test Crossmatch 04/15/19 04/15/19 04/16/19 18:06 23:34 00:40 WBC RBC Hgb Hct MCV MCH MCHC RDW Plt Count Lymph % (Auto) [place] % (Auto) Lymph # Seg Neutrophils % Seg Neuts % (Manual) Lymphocytes % (Manual) Nucleated RBC % Seg Neutrophils # Seg Neutrophils # Man Lymphocytes # (Manual) Monocytes # (Manual) PT INR APTT D-Dimer POC ABG pH ABG pH POC ABG pCO2 POC ABG pO2 ABG pO2 ABG HCO3 ABG O2 Saturation ABG Base Excess ABG Hemoglobin VBG pH Oxyhemoglobin Sodium Potassium Chloride Carbon Dioxide BUN Creatinine Glucose POC Glucose 157 H 56 L 107 H Lactic Acid Calcium Phosphorus Magnesium Iron TIBC Direct Bilirubin AST ALT Alkaline Phosphatase Total Creatine Kinase CK-MB (CK-2) C-Reactive Protein Total Protein Albumin Vitamin B12 Salicylates Acetaminophen Miscellaneous Test Crossmatch 04/16/19 04/16/19 04/16/19 09:06 09:06 11:21 WBC 12.9 H RBC 2.95 L Hgb 9.7 L Hct 28.9 L MCV 98 H MCH 33 H MCHC RDW 17.7 H Plt Count 581 H Lymph % (Auto) [place] % (Auto) Lymph # Seg Neutrophils % Seg Neuts % (Manual) Lymphocytes % (Manual) Nucleated RBC % Seg Neutrophils # Seg Neutrophils # Man Lymphocytes # (Manual) Monocytes # (Manual) PT INR APTT D-Dimer POC ABG pH ABG pH POC ABG pCO2 POC ABG pO2 ABG pO2 ABG HCO3 ABG O2 Saturation ABG Base Excess ABG Hemoglobin VBG pH Oxyhemoglobin Sodium Potassium Chloride Carbon Dioxide 31 H BUN Creatinine 0.2 L Glucose 155 H POC Glucose 184 H Lactic Acid Calcium Phosphorus Magnesium Iron TIBC Direct Bilirubin AST ALT Alkaline Phosphatase Total Creatine Kinase CK-MB (CK-2) C-Reactive Protein Total Protein Albumin Vitamin B12 Salicylates Acetaminophen Miscellaneous Test Crossmatch 04/16/19 04/16/19 04/16/19 17:28 20:17 23:09 WBC RBC Hgb Hct MCV MCH MCHC RDW Plt Count Lymph % (Auto) [place] % (Auto) Lymph # Seg Neutrophils % Seg Neuts % (Manual) Lymphocytes % (Manual) Nucleated RBC % Seg Neutrophils # Seg Neutrophils # Man Lymphocytes # (Manual) Monocytes # (Manual) PT INR APTT D-Dimer POC ABG pH 7.479 H ABG pH POC ABG pCO2 POC ABG pO2 71 L ABG pO2 ABG HCO3 ABG O2 Saturation ABG Base Excess ABG Hemoglobin VBG pH Oxyhemoglobin Sodium Potassium Chloride Carbon Dioxide BUN Creatinine Glucose POC Glucose 173 H 178 H Lactic Acid Calcium Phosphorus Magnesium Iron TIBC Direct Bilirubin AST ALT Alkaline Phosphatase Total Creatine Kinase CK-MB (CK-2) C-Reactive Protein Total Protein Albumin Vitamin B12 Salicylates Acetaminophen Miscellaneous Test Crossmatch 04/17/19 04/17/19 04/17/19 05:02 11:39 12:48 WBC RBC Hgb Hct MCV MCH MCHC RDW Plt Count Lymph % (Auto) [place] % (Auto) Lymph # Seg Neutrophils % Seg Neuts % (Manual) Lymphocytes % (Manual) Nucleated RBC % Seg Neutrophils # Seg Neutrophils # Man Lymphocytes # (Manual) Monocytes # (Manual) PT INR APTT D-Dimer POC ABG pH 7.557 H ABG pH POC ABG pCO2 32.8 L POC ABG pO2 149 H ABG pO2 ABG HCO3 ABG O2 Saturation ABG Base Excess ABG Hemoglobin VBG pH Oxyhemoglobin Sodium Potassium Chloride Carbon Dioxide BUN Creatinine Glucose POC Glucose 252 H 124 H Lactic Acid Calcium Phosphorus Magnesium Iron TIBC Direct Bilirubin AST ALT Alkaline Phosphatase Total Creatine Kinase CK-MB (CK-2) C-Reactive Protein Total Protein Albumin Vitamin B12 Salicylates Acetaminophen Miscellaneous Test Crossmatch 04/17/19 04/18/19 04/18/19 23:31 05:32 11:34 WBC RBC Hgb Hct MCV MCH MCHC RDW Plt Count Lymph % (Auto) [place] % (Auto) Lymph # Seg Neutrophils % Seg Neuts % (Manual) Lymphocytes % (Manual) Nucleated RBC % Seg Neutrophils # Seg Neutrophils # Man Lymphocytes # (Manual) Monocytes # (Manual) PT INR APTT D-Dimer POC ABG pH ABG pH POC ABG pCO2 POC ABG pO2 ABG pO2 ABG HCO3 ABG O2 Saturation ABG Base Excess ABG Hemoglobin VBG pH Oxyhemoglobin Sodium Potassium Chloride Carbon Dioxide BUN Creatinine Glucose POC Glucose 149 H 334 H 344 H Lactic Acid Calcium Phosphorus Magnesium Iron TIBC Direct Bilirubin AST ALT Alkaline Phosphatase Total Creatine Kinase CK-MB (CK-2) C-Reactive Protein Total Protein Albumin Vitamin B12 Salicylates Acetaminophen Miscellaneous Test Crossmatch 04/18/19 04/18/19 04/18/19 17:43 18:14 23:35 WBC RBC Hgb Hct MCV MCH MCHC RDW Plt Count Lymph % (Auto) [place] % (Auto) Lymph # Seg Neutrophils % Seg Neuts % (Manual) Lymphocytes % (Manual) Nucleated RBC % Seg Neutrophils # Seg Neutrophils # Man Lymphocytes # (Manual) Monocytes # (Manual) PT INR APTT D-Dimer POC ABG pH ABG pH POC ABG pCO2 49.2 H POC ABG pO2 ABG pO2 ABG HCO3 ABG O2 Saturation ABG Base Excess ABG Hemoglobin VBG pH Oxyhemoglobin Sodium Potassium Chloride Carbon Dioxide BUN Creatinine Glucose POC Glucose 289 H 312 H Lactic Acid Calcium Phosphorus Magnesium Iron TIBC Direct Bilirubin AST ALT Alkaline Phosphatase Total Creatine Kinase CK-MB (CK-2) C-Reactive Protein Total Protein Albumin Vitamin B12 Salicylates Acetaminophen Miscellaneous Test Crossmatch 04/19/19 04/19/19 04/19/19 04:35 05:55 12:26 WBC RBC Hgb Hct MCV MCH MCHC RDW Plt Count Lymph % (Auto) [place] % (Auto) Lymph # Seg Neutrophils % Seg Neuts % (Manual) Lymphocytes % (Manual) Nucleated RBC % Seg Neutrophils # Seg Neutrophils # Man Lymphocytes # (Manual) Monocytes # (Manual) PT INR APTT D-Dimer POC ABG pH 7.565 H ABG pH POC ABG pCO2 POC ABG pO2 ABG pO2 ABG HCO3 ABG O2 Saturation ABG Base Excess ABG Hemoglobin VBG pH Oxyhemoglobin Sodium Potassium Chloride Carbon Dioxide BUN Creatinine Glucose POC Glucose 172 H 271 H Lactic Acid Calcium Phosphorus Magnesium Iron TIBC Direct Bilirubin AST ALT Alkaline Phosphatase Total Creatine Kinase CK-MB (CK-2) C-Reactive Protein Total Protein Albumin Vitamin B12 Salicylates Acetaminophen Miscellaneous Test Crossmatch 04/19/19 04/19/19 04/19/19 17:54 21:10 23:35 WBC RBC Hgb Hct MCV MCH MCHC RDW Plt Count Lymph % (Auto) [place] % (Auto) Lymph # Seg Neutrophils % Seg Neuts % (Manual) Lymphocytes % (Manual) Nucleated RBC % Seg Neutrophils # Seg Neutrophils # Man Lymphocytes # (Manual) Monocytes # (Manual) PT INR APTT D-Dimer POC ABG pH ABG pH POC ABG pCO2 POC ABG pO2 ABG pO2 ABG HCO3 ABG O2 Saturation ABG Base Excess ABG Hemoglobin VBG pH Oxyhemoglobin Sodium Potassium Chloride Carbon Dioxide BUN Creatinine Glucose POC Glucose 229 H 189 H 131 H Lactic Acid Calcium Phosphorus Magnesium Iron TIBC Direct Bilirubin AST ALT Alkaline Phosphatase Total Creatine Kinase CK-MB (CK-2) C-Reactive Protein Total Protein Albumin Vitamin B12 Salicylates Acetaminophen Miscellaneous Test Crossmatch 04/20/19 04/20/19 04/20/19 05:42 11:58 17:32 WBC RBC Hgb Hct MCV MCH MCHC RDW Plt Count Lymph % (Auto) [place] % (Auto) Lymph # Seg Neutrophils % Seg Neuts % (Manual) Lymphocytes % (Manual) Nucleated RBC % Seg Neutrophils # Seg Neutrophils # Man Lymphocytes # (Manual) Monocytes # (Manual) PT INR APTT D-Dimer POC ABG pH ABG pH POC ABG pCO2 POC ABG pO2 ABG pO2 ABG HCO3 ABG O2 Saturation ABG Base Excess ABG Hemoglobin VBG pH Oxyhemoglobin Sodium Potassium Chloride Carbon Dioxide BUN Creatinine Glucose POC Glucose 289 H 265 H 232 H Lactic Acid Calcium Phosphorus Magnesium Iron TIBC Direct Bilirubin AST ALT Alkaline Phosphatase Total Creatine Kinase CK-MB (CK-2) C-Reactive Protein Total Protein Albumin Vitamin B12 Salicylates Acetaminophen Miscellaneous Test Crossmatch 04/21/19 04/21/19 04/21/19 00:02 05:13 12:41 WBC RBC Hgb Hct MCV MCH MCHC RDW Plt Count Lymph % (Auto) [place] % (Auto) Lymph # Seg Neutrophils % Seg Neuts % (Manual) Lymphocytes % (Manual) Nucleated RBC % Seg Neutrophils # Seg Neutrophils # Man Lymphocytes # (Manual) Monocytes # (Manual) PT INR APTT D-Dimer POC ABG pH ABG pH POC ABG pCO2 POC ABG pO2 ABG pO2 ABG HCO3 ABG O2 Saturation ABG Base Excess ABG Hemoglobin VBG pH Oxyhemoglobin Sodium Potassium Chloride Carbon Dioxide BUN Creatinine Glucose POC Glucose 126 H 233 H 205 H Lactic Acid Calcium Phosphorus Magnesium Iron TIBC Direct Bilirubin AST ALT Alkaline Phosphatase Total Creatine Kinase CK-MB (CK-2) C-Reactive Protein Total Protein Albumin Vitamin B12 Salicylates Acetaminophen Miscellaneous Test Crossmatch 04/21/19 04/22/19 04/22/19 23:42 03:57 03:57 WBC 11.5 H RBC 3.44 L Hgb Hct MCV MCH MCHC RDW 16.3 H Plt Count 510 H Lymph % (Auto) [place] % (Auto) Lymph # Seg Neutrophils % Seg Neuts % (Manual) Lymphocytes % (Manual) Nucleated RBC % Seg Neutrophils # Seg Neutrophils # Man Lymphocytes # (Manual) Monocytes # (Manual) PT INR APTT D-Dimer POC ABG pH ABG pH POC ABG pCO2 POC ABG pO2 ABG pO2 ABG HCO3 ABG O2 Saturation ABG Base Excess ABG Hemoglobin VBG pH Oxyhemoglobin Sodium Potassium Chloride 96.3 L Carbon Dioxide BUN Creatinine 0.2 L Glucose 333 H POC Glucose 149 H Lactic Acid Calcium Phosphorus Magnesium Iron TIBC Direct Bilirubin AST 60 H ALT Alkaline Phosphatase 204 H Total Creatine Kinase CK-MB (CK-2) C-Reactive Protein Total Protein Albumin 3.1 L Vitamin B12 Salicylates Acetaminophen Miscellaneous Test Crossmatch 04/22/19 04/22/19 04/22/19 05:18 12:03 18:17 WBC RBC Hgb Hct MCV MCH MCHC RDW Plt Count Lymph % (Auto) [place] % (Auto) Lymph # Seg Neutrophils % Seg Neuts % (Manual) Lymphocytes % (Manual) Nucleated RBC % Seg Neutrophils # Seg Neutrophils # Man Lymphocytes # (Manual) Monocytes # (Manual) PT INR APTT D-Dimer POC ABG pH ABG pH POC ABG pCO2 POC ABG pO2 ABG pO2 ABG HCO3 ABG O2 Saturation ABG Base Excess ABG Hemoglobin VBG pH Oxyhemoglobin Sodium Potassium Chloride Carbon Dioxide BUN Creatinine Glucose POC Glucose 345 H 308 H 169 H Lactic Acid Calcium Phosphorus Magnesium Iron TIBC Direct Bilirubin AST ALT Alkaline Phosphatase Total Creatine Kinase CK-MB (CK-2) C-Reactive Protein Total Protein Albumin Vitamin B12 Salicylates Acetaminophen Miscellaneous Test Crossmatch 04/23/19 04/23/19 04/23/19 00:14 05:43 11:15 WBC RBC Hgb Hct MCV MCH MCHC RDW Plt Count Lymph % (Auto) [place] % (Auto) Lymph # Seg Neutrophils % Seg Neuts % (Manual) Lymphocytes % (Manual) Nucleated RBC % Seg Neutrophils # Seg Neutrophils # Man Lymphocytes # (Manual) Monocytes # (Manual) PT INR APTT D-Dimer POC ABG pH ABG pH POC ABG pCO2 POC ABG pO2 ABG pO2 ABG HCO3 ABG O2 Saturation ABG Base Excess ABG Hemoglobin VBG pH Oxyhemoglobin Sodium Potassium Chloride Carbon Dioxide BUN Creatinine Glucose POC Glucose 192 H 260 H 186 H Lactic Acid Calcium Phosphorus Magnesium Iron TIBC Direct Bilirubin AST ALT Alkaline Phosphatase Total Creatine Kinase CK-MB (CK-2) C-Reactive Protein Total Protein Albumin Vitamin B12 Salicylates Acetaminophen Miscellaneous Test Crossmatch 04/23/19 04/23/19 04/24/19 15:44 21:30 00:09 WBC RBC Hgb Hct MCV MCH MCHC RDW Plt Count Lymph % (Auto) [place] % (Auto) Lymph # Seg Neutrophils % Seg Neuts % (Manual) Lymphocytes % (Manual) Nucleated RBC % Seg Neutrophils # Seg Neutrophils # Man Lymphocytes # (Manual) Monocytes # (Manual) PT INR APTT D-Dimer POC ABG pH ABG pH POC ABG pCO2 POC ABG pO2 ABG pO2 ABG HCO3 ABG O2 Saturation ABG Base Excess ABG Hemoglobin VBG pH Oxyhemoglobin Sodium Potassium Chloride Carbon Dioxide BUN Creatinine Glucose POC Glucose 164 H 407 H 280 H Lactic Acid Calcium Phosphorus Magnesium Iron TIBC Direct Bilirubin AST ALT Alkaline Phosphatase Total Creatine Kinase CK-MB (CK-2) C-Reactive Protein Total Protein Albumin Vitamin B12 Salicylates Acetaminophen Miscellaneous Test Crossmatch 04/24/19 04/24/19 04/24/19 06:01 06:39 14:51 WBC RBC Hgb Hct MCV MCH MCHC RDW Plt Count Lymph % (Auto) [place] % (Auto) Lymph # Seg Neutrophils % Seg Neuts % (Manual) Lymphocytes % (Manual) Nucleated RBC % Seg Neutrophils # Seg Neutrophils # Man Lymphocytes # (Manual) Monocytes # (Manual) PT INR APTT D-Dimer POC ABG pH ABG pH POC ABG pCO2 POC ABG pO2 ABG pO2 ABG HCO3 ABG O2 Saturation ABG Base Excess ABG Hemoglobin VBG pH Oxyhemoglobin Sodium Potassium Chloride Carbon Dioxide BUN Creatinine Glucose POC Glucose 65 L 125 H 207 H Lactic Acid Calcium Phosphorus Magnesium Iron TIBC Direct Bilirubin AST ALT Alkaline Phosphatase Total Creatine Kinase CK-MB (CK-2) C-Reactive Protein Total Protein Albumin Vitamin B12 Salicylates Acetaminophen Miscellaneous Test Crossmatch 04/24/19 04/25/19 04/25/19 18:03 01:46 05:56 WBC RBC Hgb Hct MCV MCH MCHC RDW Plt Count Lymph % (Auto) [place] % (Auto) Lymph # Seg Neutrophils % Seg Neuts % (Manual) Lymphocytes % (Manual) Nucleated RBC % Seg Neutrophils # Seg Neutrophils # Man Lymphocytes # (Manual) Monocytes # (Manual) PT INR APTT D-Dimer POC ABG pH ABG pH POC ABG pCO2 POC ABG pO2 ABG pO2 ABG HCO3 ABG O2 Saturation ABG Base Excess ABG Hemoglobin VBG pH Oxyhemoglobin Sodium Potassium Chloride Carbon Dioxide BUN Creatinine Glucose POC Glucose 140 H 125 H 208 H Lactic Acid Calcium Phosphorus Magnesium Iron TIBC Direct Bilirubin AST ALT Alkaline Phosphatase Total Creatine Kinase CK-MB (CK-2) C-Reactive Protein Total Protein Albumin Vitamin B12 Salicylates Acetaminophen Miscellaneous Test Crossmatch 04/25/19 04/25/19 04/25/19 08:12 13:06 18:04 WBC RBC Hgb Hct MCV MCH MCHC RDW Plt Count Lymph % (Auto) [place] % (Auto) Lymph # Seg Neutrophils % Seg Neuts % (Manual) Lymphocytes % (Manual) Nucleated RBC % Seg Neutrophils # Seg Neutrophils # Man Lymphocytes # (Manual) Monocytes # (Manual) PT INR APTT D-Dimer POC ABG pH ABG pH POC ABG pCO2 POC ABG pO2 ABG pO2 ABG HCO3 ABG O2 Saturation ABG Base Excess ABG Hemoglobin VBG pH Oxyhemoglobin Sodium Potassium Chloride Carbon Dioxide BUN Creatinine Glucose POC Glucose 127 H 147 H 340 H Lactic Acid Calcium Phosphorus Magnesium Iron TIBC Direct Bilirubin AST ALT Alkaline Phosphatase Total Creatine Kinase CK-MB (CK-2) C-Reactive Protein Total Protein Albumin Vitamin B12 Salicylates Acetaminophen Miscellaneous Test Crossmatch 04/26/19 04/26/19 04/26/19 00:16 05:15 11:26 WBC RBC Hgb Hct MCV MCH MCHC RDW Plt Count Lymph % (Auto) B[place] % (Auto) Lymph # Seg Neutrophils % Seg Neuts % (Manual) Lymphocytes % (Manual) Nucleated RBC % Seg Neutrophils # Seg Neutrophils # Man Lymphocytes # (Manual) Monocytes # (Manual) PT INR APTT D-Dimer POC ABG pH ABG pH POC ABG pCO2 POC ABG pO2 ABG pO2 ABG HCO3 ABG O2 Saturation ABG Base Excess ABG Hemoglobin VBG pH Oxyhemoglobin Sodium Potassium Chloride Carbon Dioxide BUN Creatinine Glucose POC Glucose 137 H 136 H 365 H Lactic Acid Calcium Phosphorus Magnesium Iron TIBC Direct Bilirubin AST ALT Alkaline Phosphatase Total Creatine Kinase CK-MB (CK-2) C-Reactive Protein Total Protein Albumin Vitamin B12 Salicylates Acetaminophen Miscellaneous Test Crossmatch 04/26/19 04/26/19 04/27/19 18:03 21:30 06:14 WBC RBC Hgb Hct MCV MCH MCHC RDW Plt Count Lymph % (Auto) [place] % (Auto) Lymph # Seg Neutrophils % Seg Neuts % (Manual) Lymphocytes % (Manual) Nucleated RBC % Seg Neutrophils # Seg Neutrophils # Man Lymphocytes # (Manual) Monocytes # (Manual) PT INR APTT D-Dimer POC ABG pH ABG pH POC ABG pCO2 POC ABG pO2 ABG pO2 ABG HCO3 ABG O2 Saturation ABG Base Excess ABG Hemoglobin VBG pH Oxyhemoglobin Sodium Potassium Chloride Carbon Dioxide BUN Creatinine Glucose POC Glucose 124 H 231 H 199 H Lactic Acid Calcium Phosphorus Magnesium Iron TIBC Direct Bilirubin AST ALT Alkaline Phosphatase Total Creatine Kinase CK-MB (CK-2) C-Reactive Protein Total Protein Albumin Vitamin B12 Salicylates Acetaminophen Miscellaneous Test Crossmatch 04/27/19 04/27/19 04/28/19 16:39 22:22 05:55 WBC RBC Hgb Hct MCV MCH MCHC RDW Plt Count Lymph % (Auto) [place] % (Auto) Lymph # Seg Neutrophils % Seg Neuts % (Manual) Lymphocytes % (Manual) Nucleated RBC % Seg Neutrophils # Seg Neutrophils # Man Lymphocytes # (Manual) Monocytes # (Manual) PT INR APTT D-Dimer POC ABG pH ABG pH POC ABG pCO2 POC ABG pO2 ABG pO2 ABG HCO3 ABG O2 Saturation ABG Base Excess ABG Hemoglobin VBG pH Oxyhemoglobin Sodium Potassium Chloride Carbon Dioxide BUN Creatinine Glucose POC Glucose 171 H 183 H 207 H Lactic Acid Calcium Phosphorus Magnesium Iron TIBC Direct Bilirubin AST ALT Alkaline Phosphatase Total Creatine Kinase CK-MB (CK-2) C-Reactive Protein Total Protein Albumin Vitamin B12 Salicylates Acetaminophen Miscellaneous Test Crossmatch 04/28/19 04/28/19 04/29/19 12:30 17:07 00:03 WBC RBC Hgb Hct MCV MCH MCHC RDW Plt Count Lymph % (Auto) [place] % (Auto) Lymph # Seg Neutrophils % Seg Neuts % (Manual) Lymphocytes % (Manual) Nucleated RBC % Seg Neutrophils # Seg Neutrophils # Man Lymphocytes # (Manual) Monocytes # (Manual) PT INR APTT D-Dimer POC ABG pH ABG pH POC ABG pCO2 POC ABG pO2 ABG pO2 ABG HCO3 ABG O2 Saturation ABG Base Excess ABG Hemoglobin VBG pH Oxyhemoglobin Sodium Potassium Chloride Carbon Dioxide BUN Creatinine Glucose POC Glucose 199 H 233 H 217 H Lactic Acid Calcium Phosphorus Magnesium Iron TIBC Direct Bilirubin AST ALT Alkaline Phosphatase Total Creatine Kinase CK-MB (CK-2) C-Reactive Protein Total Protein Albumin Vitamin B12 Salicylates Acetaminophen Miscellaneous Test Crossmatch 04/29/19 04/29/19 04/29/19 05:51 09:43 09:43 WBC RBC 3.36 L Hgb Hct MCV MCH MCHC RDW 16.3 H Plt Count Lymph % (Auto) 11.1 L Bland % (Auto) Lymph # Seg Neutrophils % 81.4 H Seg Neuts % (Manual) Lymphocytes % (Manual) Nucleated RBC % Seg Neutrophils # 9.0 H Seg Neutrophils # Man Lymphocytes # (Manual) Monocytes # (Manual) PT INR APTT D-Dimer POC ABG pH ABG pH POC ABG pCO2 POC ABG pO2 ABG pO2 ABG HCO3 ABG O2 Saturation ABG Base Excess ABG Hemoglobin VBG pH Oxyhemoglobin Sodium Potassium Chloride Carbon Dioxide BUN 21 H Creatinine 0.3 L Glucose 316 H POC Glucose 149 H Lactic Acid Calcium Phosphorus Magnesium Iron TIBC Direct Bilirubin AST ALT Alkaline Phosphatase Total Creatine Kinase CK-MB (CK-2) C-Reactive Protein Total Protein Albumin Vitamin B12 Salicylates Acetaminophen Miscellaneous Test Crossmatch 04/29/19 12:28 WBC RBC Hgb Hct MCV MCH MCHC RDW Plt Count Lymph % (Auto) Bland % (Auto) Lymph # Seg Neutrophils % Seg Neuts % (Manual) Lymphocytes % (Manual) Nucleated RBC % Seg Neutrophils # Seg Neutrophils # Man Lymphocytes # (Manual) Monocytes # (Manual) PT INR APTT D-Dimer POC ABG pH ABG pH POC ABG pCO2 POC ABG pO2 ABG pO2 ABG HCO3 ABG O2 Saturation ABG Base Excess ABG Hemoglobin VBG pH Oxyhemoglobin Sodium Potassium Chloride Carbon Dioxide BUN Creatinine Glucose POC Glucose 368 H Lactic Acid Calcium Phosphorus Magnesium Iron TIBC Direct Bilirubin AST ALT Alkaline Phosphatase Total Creatine Kinase CK-MB (CK-2) C-Reactive Protein Total Protein Albumin Vitamin B12 Salicylates Acetaminophen Miscellaneous Test Crossmatch Allied health notes reviewed: nursing
[2019-04-29] MEDS: LANTUS SUB-Q SCH (22:13)
[2019-04-30] MEDS: HumaLOG SUB-Q SCH ×5 (00:59→23:50)
[2019-04-30] MEDS: TYLENOL PO PRN (06:51)
--- NOTE | 2019-04-30 08:56 | Progress Note ---
Assessment and Plan Assessment and plan: Uncontrolled DM type 1 with hyperglycemia - cont. basal insulin Lantus - cont. SSI Acute respiratory failure s/p intubated, off vent - s/p trach and peg - Tracheostomy re-adjusted on 04/17/19 - on vent, cont nebs, - s/p Trach - Pulm following - Aspiration precautions - VAP bundle Acute anoxic encephalopathy, POA - from cardiac arrest -MR concerning for anoxic Brain injury Cardiac arrest s/p resuscitation - likely 2/2 severe hyperglycemia - preserved EF on 2D echo Generalized Anasacara -Given a dose of Bumex s/p DKA, severe Shock hypotensive +/- sepsis - resolved Now off pressors. Was on vasopressin, Levophed, Phenylephrine Sepsis with possible aspiration PNA - evident on CXR on admission with left sided infiltrates - Competed abx - Abx discontinued following notation that no evidence of liver lesion not consistent with infection per ID - Leucocytosis and thrombocytosis are likely reactive from hepatic subcapsular hematoma Head lice - multiple dosing of Permethin given, resolved Acute renal failure, likely vasomotor nephropathy - resolved Anemia, acute on chronic - no sign of blood loss s/p 2 Units PRBC transfused Hyperkalemia, resolved with fluid and insulin Hypernatremia Resolved hypokalemia, resolved Shock liver with elevated LFT and Coagulopathy - due to cardiac arrest and hypotension - cont to monitor Liver lesion ID Physician following Discontinued abx, not consistent with infection as noted above Hypermagnesemia - monitor levels as needed Hyperphosphatemia -cont to monitor, improved Stage 1 sacral ulcer, poa - upper ext blisters - pressure ulcer prevention strategies - wound care VTE Prophylaxis with Lovenox Poor prognosis DNR status Disposition: continue inpatient care, await placement in [place], [place] clinical trial manager in contact with the family Potential Hospice transfer History Interval history: Patient is a 29 year old woman with a history of diabetes was brought to the emergency room following a cardiac arrest. Her last well-known time was 10:30 in the morning, she was traveling with a friend, she was unresponsive in the back seat. EMS was called, CPR was started and continued here in the emergency room. Patient was intubated in the ER, noted hypotensive started on dobutamine, epinephrine and Levophed drip, given IV fluids, found to be in DKA with BG ~2200, several metabolic derangements - placed on insulin drip and admitted to ICU. BP improved and she was weaned off pressors. Pt off pressors and extubated. Transferred to floor awaiting placement Hospitalist Physical - Constitutional Vitals: Temp Pulse Resp BP Pulse Ox 100.7 F H 111 H 20 108/65 96 04/30/19 05:46 04/30/19 05:46 04/30/19 05:46 04/30/19 05:46 04/30/19 07:30 General appearance: Present: other (intubated) - EENT Eyes: Present: PERRL, EOM intact ENT: hearing intact, clear oral mucosa, dentition normal - Neck Neck: Present: supple, normal ROM - Respiratory Respiratory effort: normal Respiratory: bilateral: CTA - Cardiovascular Rhythm: regular Heart Sounds: Present: S1 & S2. Absent: gallop, rub - Extremities Extremities: no ischemia, No edema, Full ROM - Abdominal General gastrointestinal: soft, non-tender, non-distended, normal bowel sounds - Integumentary Integumentary: Present: clear, warm, dry - Neurologic Neurologic: other (encephalopathic, non verbal) Results - Labs CBC & Chem 7: 04/30/19 09:08 04/29/19 09:43 Labs: Laboratory Last Values WBC 11.0 K/mm3 (4.5-11.0) 04/29/19 09:43 RBC 3.36 M/mm3 (3.65-5.03) L 04/29/19 09:43 Hgb 10.8 gm/dl (10.1-14.3) 04/29/19 09:43 Hct 32.3 % (30.3-42.9) 04/29/19 09:43 MCV 96 fl (79-97) 04/29/19 09:43 MCH 32 pg (28-32) 04/29/19 09:43 MCHC 33 % (30-34) 04/29/19 09:43 RDW 16.3 % (13.2-15.2) H 04/29/19 09:43 Plt Count 432 K/mm3 (140-440) 04/29/19 09:43 Lymph % (Auto) 11.1 % (13.4-35.0) L 04/29/19 09:43 [place] % (Auto) 4.9 % (0.0-7.3) 04/29/19 09:43 Eos % (Auto) 2.1 % (0.0-4.3) 04/29/19 09:43 Baso % (Auto) 0.5 % (0.0-1.8) 04/29/19 09:43 Lymph # 1.2 K/mm3 (1.2-5.4) 04/29/19 09:43 [place] # 0.5 K/mm3 (0.0-0.8) 04/29/19 09:43 Eos # 0.2 K/mm3 (0.0-0.4) 04/29/19 09:43 Baso # 0.1 K/mm3 (0.0-0.1) 04/29/19 09:43 Add Manual Diff Complete 04/01/19 05:01 Total Counted 100 04/01/19 05:01 Seg Neutrophils % 81.4 % (40.0-70.0) H 04/29/19 09:43 Seg Neuts % (Manual) 71.0 % (40.0-70.0) H 04/01/19 05:01 Band Neutrophils % 0 % 04/01/19 05:01 Lymphocytes % (Manual) 20.0 % (13.4-35.0) 04/01/19 05:01 Reactive Lymphs % (Man) 0 % 04/01/19 05:01 Monocytes % (Manual) 7.0 % (0.0-7.3) 04/01/19 05:01 Eosinophils % (Manual) 2.0 % (0.0-4.3) 04/01/19 05:01 Basophils % (Manual) 0 % (0.0-1.8) 04/01/19 05:01 Metamyelocytes % 0 % 04/01/19 05:01 Myelocytes % 0 % 04/01/19 05:01 Promyelocytes % 0 % 04/01/19 05:01 Blast Cells % 0 % 04/01/19 05:01 Nucleated RBC % Not Reportable 04/01/19 05:01 Seg Neutrophils # 9.0 K/mm3 (1.8-7.7) H 04/29/19 09:43 Seg Neutrophils # Man 4.8 K/mm3 (1.8-7.7) 04/01/19 05:01 Band Neutrophils # 0.0 K/mm3 04/01/19 05:01 Lymphocytes # (Manual) 1.4 K/mm3 (1.2-5.4) 04/01/19 05:01 Abs React Lymphs (Man) 0.0 K/mm3 04/01/19 05:01 Monocytes # (Manual) 0.5 K/mm3 (0.0-0.8) 04/01/19 05:01 Eosinophils # (Manual) 0.1 K/mm3 (0.0-0.4) 04/01/19 05:01 Basophils # (Manual) 0.0 K/mm3 (0.0-0.1) 04/01/19 05:01 Metamyelocytes # 0.0 K/mm3 04/01/19 05:01 Myelocytes # 0.0 K/mm3 04/01/19 05:01 Promyelocytes # 0.0 K/mm3 04/01/19 05:01 Blast Cells # 0.0 K/mm3 04/01/19 05:01 WBC Morphology Not Reportable 04/01/19 05:01 Hypersegmented Neuts Not Reportable 04/01/19 05:01 Hyposegmented Neuts Not Reportable 04/01/19 05:01 Hypogranular Neuts Not Reportable 04/01/19 05:01 Smudge Cells Not Reportable 04/01/19 05:01 Toxic Granulation Not Reportable 04/01/19 05:01 Toxic Vacuolation Not Reportable 04/01/19 05:01 Dohle Bodies Not Reportable 04/01/19 05:01 Pelger-Huet Anomaly Not Reportable 04/01/19 05:01 Wong Rods Not Reportable 04/01/19 05:01 Platelet Estimate Not Reportable 04/01/19 05:01 Clumped Platelets Not Reportable 04/01/19 05:01 Plt Clumps, EDTA Not Reportable 04/01/19 05:01 Large Platelets Not Reportable 04/01/19 05:01 Giant Platelets Not Reportable 04/01/19 05:01 Platelet Satelliting Not Reportable 04/01/19 05:01 Plt Morphology Comment Not Reportable 04/01/19 05:01 RBC Morphology Normal 04/01/19 05:01 Dimorphic RBCs Not Reportable 04/01/19 05:01 Polychromasia Not Reportable 04/01/19 05:01 Hypochromasia Not Reportable 04/01/19 05:01 Poikilocytosis Not Reportable 04/01/19 05:01 Anisocytosis Not Reportable 04/01/19 05:01 Microcytosis Not Reportable 04/01/19 05:01 Macrocytosis Not Reportable 04/01/19 05:01 Spherocytes Not Reportable 04/01/19 05:01 Pappenheimer Bodies Not Reportable 04/01/19 05:01 Sickle Cells Not Reportable 04/01/19 05:01 Target Cells Not Reportable 04/01/19 05:01 Tear Drop Cells Not Reportable 04/01/19 05:01 Ovalocytes Not Reportable 04/01/19 05:01 Helmet Cells Not Reportable 04/01/19 05:01 Muñoz-[place] Bodies Not Reportable 04/01/19 05:01 [place] Rings Not Reportable 04/01/19 05:01 Zortman Cells Not Reportable 04/01/19 05:01 Bite Cells Not Reportable 04/01/19 05:01 Crenated Cell Not Reportable 04/01/19 05:01 Elliptocytes Not Reportable 04/01/19 05:01 Acanthocytes (Spur) Not Reportable 04/01/19 05:01 Rouleaux Not Reportable 04/01/19 05:01 Hemoglobin C Crystals Not Reportable 04/01/19 05:01 Schistocytes Not Reportable 04/01/19 05:01 Malaria parasites Not Reportable 04/01/19 05:01 [place]ja Bodies Not Reportable 04/01/19 05:01 Hem Pathologist Commnt No 04/01/19 05:01 PT 13.9 Sec. (12.2-14.9) 04/01/19 17:14 INR 1.10 (0.87-1.13) 04/01/19 17:14 APTT 74.5 Sec. (24.2-36.6) H* 03/29/19 19:20 Fibrinogen 313 mg/dl (211-480) 04/01/19 17:14 D-Dimer 4526.86 ng/mlDDU (0-234) H 04/06/19 00:06 Heparin Anti-Xa, Unfract Negative (Negative) 03/31/19 15:00 POC ABG pH 7.565 (7.35-7.45) H 04/19/19 04:35 ABG pH 7.396 pH Units (7.350-7.450) 04/03/19 05:35 POC ABG pCO2 36.2 (35-45) 04/19/19 04:35 ABG pCO2 32.2 mm Hg 04/03/19 05:35 POC ABG pO2 88 (80-105) 04/19/19 04:35 ABG pO2 97.7 mm Hg (80.0-90.0) H 04/03/19 05:35 POC ABG HCO3 32.8 (22-26 mml/L) 04/19/19 04:35 ABG HCO3 19.3 mmol/L (20.0-26.0) L 04/03/19 05:35 POC ABG Total CO2 34 (23-27mmol/L) 04/19/19 04:35 POC ABG O2 Sat 98 04/19/19 04:35 ABG O2 Saturation 97.6 % (95.0-99.0) 04/03/19 05:35 ABG O2 Content 10.9 (0.0-44) 04/03/19 05:35 POC ABG Base Excess 11 ((-2) - (+3)mmol/L) 04/19/19 04:35 ABG Base Excess -5.0 mmol/L (-2.0-3.0) L 04/03/19 05:35 ABG Hemoglobin 8.0 gm/dl (12.0-16.0) L 04/03/19 05:35 ABG Carboxyhemoglobin 2.1 % (0.0-5.0) 04/03/19 05:35 ABG Methemoglobin 0.5 % (0.0-1.5) 04/03/19 05:35 VBG pH 6.800 (7.320-7.420) L* 03/29/19 19:47 Oxyhemoglobin 95.1 % (95.0-99.0) 04/03/19 05:35 FiO2 40 % 04/19/19 04:35 Sodium 139 mmol/L (137-145) 04/29/19 09:43 Potassium 4.6 mmol/L (3.6-5.0) 04/29/19 09:43 Chloride 99.0 mmol/L (98-107) 04/29/19 09:43 Carbon Dioxide 27 mmol/L (22-30) 04/29/19 09:43 Anion Gap 18 mmol/L 04/29/19 09:43 BUN 21 mg/dL (7-17) H 04/29/19 09:43 Creatinine 0.3 mg/dL (0.7-1.2) L 04/29/19 09:43 Estimated GFR > 60 ml/min 04/29/19 09:43 BUN/Creatinine Ratio 70 % 04/29/19 09:43 Glucose 316 mg/dL (65-100) H 04/29/19 09:43 POC Glucose 318 (70-105) H 04/30/19 05:56 Lactic Acid 3.30 mmol/L (0.7-2.0) H* 03/31/19 07:50 Calcium 9.5 mg/dL (8.4-10.2) 04/29/19 09:43 Phosphorus 4.10 mg/dL (2.5-4.5) 04/09/19 16:25 Magnesium 1.70 mg/dL (1.7-2.3) 04/22/19 03:57 Iron 26 ug/dL (37-170) L 03/31/19 08:20 TIBC 193 mcg/dL (250-450) L 03/31/19 08:20 Total Bilirubin 0.20 mg/dL (0.1-1.2) 04/22/19 03:57 Direct Bilirubin 0.2 mg/dL (0-0.2) 04/02/19 07:48 Indirect Bilirubin 0.5 mg/dL 04/02/19 07:48 AST 60 units/L (5-40) H 04/22/19 03:57 ALT 31 units/L (7-56) 04/22/19 03:57 Alkaline Phosphatase 204 units/L (35-129) H 04/22/19 03:57 Total Creatine Kinase 2465 units/L (30-135) H 03/30/19 05:26 CK-MB (CK-2) 52.7 ng/mL (0.0-4.0) H 03/30/19 05:26 CK-MB (CK-2) Rel Index 2.1 (0-4) 03/30/19 05:26 Troponin T < 0.010 ng/mL (0.00-0.029) 04/06/19 05:20 C-Reactive Protein 2.40 mg/dL (0.00-1.30) H 03/30/19 12:57 Total Protein 7.6 g/dL (6.3-8.2) 04/22/19 03:57 Albumin 3.1 g/dL (3.9-5) L 04/22/19 03:57 Albumin/Globulin Ratio 0.7 % 04/22/19 03:57 Serotonin Release Assay See scanned result 03/31/19 15:00 Vitamin B12 > 2000 pg/mL (211-911) H 03/31/19 08:20 Folate > 20 ng/mL (7.3-26.0) 03/31/19 08:20 HCG, Qual Negative (Negative) 03/29/19 19:20 Urine Color Yellow (Yellow) 03/29/19 23:10 Urine Turbidity Slightly-cloudy (Clear) 03/29/19 23:10 Urine pH 6.0 (5.0-7.0) 03/29/19 23:10 Ur Specific [place] 1.021 (1.003-1.030) 03/29/19 23:10 Urine Protein 100 mg/dl mg/dL (Negative) 03/29/19 23:10 Urine Glucose (UA) >=500 mg/dL (Negative) 03/29/19 23:10 Urine Ketones 20 mg/dL (Negative) 03/29/19 23:10 Urine Blood Lg (Negative) 03/29/19 23:10 Urine Nitrite Neg (Negative) 03/29/19 23:10 Urine Bilirubin Neg (Negative) 03/29/19 23:10 Urine Urobilinogen < 2.0 mg/dL (<2.0) 03/29/19 23:10 Ur Leukocyte Esterase Neg (Negative) 03/29/19 23:10 Urine WBC (Auto) 1.0 /HPF (0.0-6.0) 03/29/19 23:10 Urine RBC (Auto) 1.0 /HPF (0.0-6.0) 03/29/19 23:10 Urine Mucus Few /HPF 03/29/19 23:10 Salicylates 0.8 mg/dL (2.8-20.0) L 03/30/19 Unknown Urine Opiates Screen Presumptive negative 03/29/19 23:10 Urine Methadone Screen Presumptive negative 03/29/19 23:10 Acetaminophen < 5.0 ug/mL (10.0-30.0) L 03/30/19 Unknown Ur Barbiturates Screen Presumptive negative 03/29/19 23:10 Ur Phencyclidine Scrn Presumptive negative 03/29/19 23:10 Ur Amphetamines Screen Presumptive negative 03/29/19 23:10 U Benzodiazepines Scrn Presumptive negative 03/29/19 23:10 Urine Cocaine Screen Presumptive negative 03/29/19 23:10 U Marijuana (THC) Screen Presumptive negative 03/29/19 23:10 Drugs of Abuse Note Disclamer 03/29/19 23:10 Heparin-induced Plt Ab Negative (Negative) 03/31/19 15:00 UF Heparin High Dose 0 % Release 03/31/19 15:00 FABIAN UFH Low Dose 0.1 0 % Release 03/31/19 15:00 FABIAN UFH Low Dose 0.5 0 % Release 03/31/19 15:00 Hepatitis A IgM Ab Non-reactive (NonReactive) 03/30/19 Unknown Hep Bs Antigen Non-reactive (Negative) 03/30/19 Unknown Hep B Core IgM Ab Non-reactive (NonReactive) 03/30/19 Unknown Hepatitis C Antibody Non-reactive (NonReactive) 03/30/19 Unknown Miscellaneous Test Flexitest 1 H 03/30/19 14:00 Blood Type O POSITIVE 03/30/19 03:30 Antibody Screen Negative 03/30/19 03:30 Crossmatch See Detail 03/30/19 03:30 Active Medications - Current Medications Current Medications: Generic Name Dose Route Start Last Admin Trade Name Freq PRN Reason Stop Dose Admin Acetaminophen 650 mg 03/29/19 23:34 04/30/19 06:51 Tylenol PO 650 mg Q4H PRN Administration Pain MILD(1-3)/Fever >100.5/WARE Lipase/Protease/Amylase 1 each 04/02/19 11:44 Pancreazaaliyah Daniels 10,500 Unit FEEDTUBE PRN PRN For Clogged Feeding Tube Dextrose 50 ml 04/21/19 12:03 D50w (25gm) Syringe IV PRN PRN Hypoglycemia Enoxaparin Sodium 40 mg 04/14/19 10:00 04/29/19 09:14 Lovenox SUB-Q 40 mg QDAY@1000 ZAMZAM Administration Famotidine 20 mg 04/02/19 10:00 04/29/19 22:13 Pepcid PO 20 mg BID ZAMZAM Administration Fentanyl 25 mcg 04/14/19 14:00 04/29/19 13:00 Duragesic TD 25 mcg Q3D ZAMZAM Administration Glycopyrrolate 1 mg 04/22/19 20:00 04/29/19 22:13 Robinul FEEDTUBE 1 mg TID ZAMZAM Administration Hydrophilic Ointment 1 applic 03/30/19 11:24 04/22/19 08:37 Vaseline Lip Therapy TP 1 applic Q2HR PRN Administration Dry Lips Insulin Glargine 20 units 04/09/19 22:00 04/29/19 22:13 Lantus SUB-Q 20 units QHS ZAMZAM Administration Insulin Human Lispro 0 unit 04/21/19 13:00 04/30/19 06:53 Humalog SUB-Q 8 unit Q6HR ZAMZAM Administration Protocol Levetiracetam 500 mg 04/03/19 10:00 04/29/19 22:13 Keppra PO 500 mg BID ZAMZAM Administration Metoprolol Tartrate 5 mg 04/14/19 13:06 04/22/19 08:29 Lopressor IV 5 mg Q6HR PRN Administration Tachyarrhythmias Metoprolol Tartrate 25 mg 04/16/19 10:00 04/29/19 22:14 Lopressor PO 25 mg BID ZAMZAM Administration Multi-Ingred Cream/Lotion/Oil/Oint 1 applic 03/30/19 11:24 04/06/19 11:39 Artificial Tears Ophth Oint OU 1 applic Q4HR PRN Administration Dry Eye(s) Ondansetron HCl 4 mg 03/29/19 23:34 Zofran IV Q8H PRN Nausea And Vomiting Scopolamine 1 each 04/17/19 12:00 04/29/19 12:58 Transderm-Scop TD 1 each Q3D ZAMZAM Administration Simple Syrup 15 ml 04/02/19 11:44 04/24/19 06:02 Simple Syrup FEEDTUBE 15 ml PRN PRN Administration Hypoglycemia Simple Syrup 30 ml 04/02/19 11:44 Simple Syrup FEEDTUBE PRN PRN Hypoglycemia Sodium Bicarbonate 325 mg 04/02/19 11:44 Sodium Bicarbonate FEEDTUBE PRN PRN For Clogged Feeding Tube Sodium Chloride 10 ml 03/30/19 10:00 04/29/19 22:14 Sodium Chloride Flush Syringe 10 Ml IV 10 ml BID ZAMZAM Administration Sodium Chloride 10 ml 03/29/19 23:34 04/22/19 08:29 Sodium Chloride Flush Syringe 10 Ml IV 10 ml PRN PRN Administration LINE FLUSH Nutrition/Malnutrition Assess - Dietary Evaluation Nutrition/Malnutrition Findings: Nutrition Notes Start: 03/30/19 13:14 Freq: Status: Active Protocol: Document 04/25/19 09:43 RS (Rec: 04/25/19 10:30 RS [id number]) Co-Sign 04/25/19 09:43 NHALL Nutrition Notes Initial or Follow up Reassessment Current Diagnosis Acute Kidney Injury,Diabetes, Sepsis,Respiratory Failure Other Pertinent Diagnosis s/p trach & PEG, s/p cardiac arrest, DKA, ARF, Shock liver Current Diet Glucerna 1.2 at 50 ml/hr Labs/Tests POC glu 127 Pertinent Medications Reviewed Height 5 ft Weight 40.1 kg [place] Body Weight (kg) 45.45 BMI 17.2 Subjective/Other Information Glucerna running at 50 ml/hr via PEG. Tech reports pt is tolerating TF. Percent of energy/protein needs met: 100%/100% Burn Absent Trauma Absent #1 Nutrition Diagnosis Inadequate oral intake Diagnosis Progress(for reassessment Continues documentation) Is patient on ventilator? Yes Is Patient Ambulatory and/or Out of Bed No REE-([facility]-confined to bed) 1247.496 Kcal/Kg value to use for calculation 35 Approximate Energy Requirements Using 1404 kcal/Kg Calculation Used for Recommendations [facility] Additional Notes Protein: 1.2-1.5g/k-60g/ day Fluids: 1ml/kcal Nutrition Intervention Change Diet Order: Continue TF Nutrition Support: Glucerna 1.2 at 50ml/hr with 80ml water flush q4h. Kcal 1,440 Protein (gm) 72 Fluid (mL) 966 Goal #1 Meet at least 75% of energy and protein needs Follow-Up By: 05/02/19 Additional Comments F/U for stable TF rate and wt
[2019-04-30] MEDS: PEPCID PO SCH ×2 (09:05→22:00)
[2019-04-30] MEDS: ROBINUL FEEDTUBE SCH ×3 (09:06→21:54)
[2019-04-30] MEDS: METOPROLOL PO SCH ×2 (09:07→21:52)
[2019-04-30] MEDS: KEPPRA PO SCH ×2 (09:07→21:15)
[2019-04-30] MEDS: ENOXAPARIN SUB-Q SCH (09:07)
[2019-04-30 09:43] LABS: Basophils % (Auto) 0.6 % (0.0-1.8); Eosinophils # (Auto) 0.1 K/mm3 (0.0-0.4); Hematocrit 33.5 % (30.3-42.9); Hemoglobin 11.2 gm/dl (10.1-14.3); Lymphocytes # (Auto) 1.3 K/mm3 (1.2-5.4); Lymphocytes % (Auto) 18.5 % (13.4-35.0); Mean Corpuscular HGB Conc 34 % (30-34); Mean Corpuscular Volume 96 fl (79-97); Monocytes # (Auto) 0.4 K/mm3 (0.0-0.8); Monocytes % (Auto) 5.2 % (0.0-7.3); Platelet Count 407 K/mm3 (140-440); Red Blood Count 3.48 M/mm3 (3.65-5.03); Red Cell Distribution Width 15.9 % (13.2-15.2)
[2019-04-30 10:17] LABS: BUN/Creatinine Ratio 83; Blood Urea Nitrogen 25 mg/dL (7-17); Calcium 9.8 mg/dL (8.4-10.2); Hemolysis Index 22
[2019-04-30 12:34] LABS: Amorphous Crystals,Urine Few; Bacteria,Urine 1+ /HPF (Negative); Bilirubin,Urine NEG (Negative); Blood,Urine NEG (Negative); Color,Urine Yellow (Yellow); Protein,Urine <15 mg/dL mg/dL (Negative); Urobilinogen,Urine < 2.0 mg/dL (<2.0)
--- NOTE | 2019-04-30 13:38 | Progress Note ---
Assessment and Plan Patients condition same.Patient resting on T tube. Patient sleeping at this time. No acute respiratory distress.. Patient is on T tube, FIO2 28%. O2 saturation 95%.Patient running low grade temp and has no leukocytosis. Patient waiting for placement. - Patient Problems (1) Cardiac arrest Current Visit: Yes Status: Acute Plan to address problem: Patient resucitated. Presently sleeping on T tube. No acute respiratory distress.; (2) Status post tracheostomy Current Visit: Yes Status: Acute Plan to address problem: Respiratory suctioning. Recommend trach care as per respiratory therapy protocol. (3) DKA, type 1 Current Visit: Yes Status: Acute Qualifiers: Diabetes mellitus complication detail: with coma Qualified Code(s): E10.11 - Type 1 diabetes mellitus with ketoacidosis with coma Plan to address problem: Management as per primary care. (4) Hypotension Current Visit: Yes Status: Acute Qualifiers: Hypotension type: unspecified hypotension type Qualified Code(s): I95.9 - Hypotension, unspecified Plan to address problem: Improved. Recent blood pressure 121/83. (5) Renal failure Current Visit: Yes Status: Acute Qualifiers: Renal failure chronicity: acute Acute renal failure type: unspecified Qualified Code(s): N17.9 - Acute kidney failure, unspecified Plan to address problem: Improved. Management as per primary care and nephrology . Subjective Date of service: 04/30/19 Principal diagnosis: Ac Hypoxemic Resp Failure; DKA; Severe sepsis with shock; ANGELICA Interval history: Patients condition same.Patient resting on T tube. Patient sleeping at this time. No acute respiratory distress.. Patient is on T tube, FIO2 28%. O2 saturation 95%.Patient running low grade temp and has no leukocytosis. Patient waiting for placement. Objective Vital Signs - 12hr 04/30/19 04/30/19 04/30/19 05:46 07:29 07:30 Temperature 100.7 F H Pulse Rate 111 H Pulse Rate [ From Monitor] Respiratory 20 Rate Blood Pressure 108/65 O2 Sat by Pulse 95 96 Oximetry O2 Sat by Pulse 96 Oximetry [ Assessment] 04/30/19 04/30/19 04/30/19 09:07 09:25 10:49 Temperature 98.7 F Pulse Rate 111 H 115 H Pulse Rate [ 111 H From Monitor] Respiratory 24 20 Rate Blood Pressure 108/65 129/91 O2 Sat by Pulse 96 97 Oximetry O2 Sat by Pulse Oximetry [ Assessment] Constitutional: no acute distress, asleep, other (young CF normocephalic and atraumatic s/p tracheostomy to ATP, copious secretions) Eyes: non-icteric ENT: oropharynx moist Neck: supple, no lymphadenopathy, no JVD, other (midline trach tube) Effort: mildly labored Ascultation: Bilateral: diminished breath sounds, rhonchi Percussion: Bilateral: not dull Cardiovascular: regular rate and rhythm Gastrointestinal: normoactive bowel sounds, soft, non-tender, non-distended, other (PEG tube) Integumentary: normal Extremities: no cyanosis, no edema, pink and warm, pulses normal, no ischemia or petechiae Neurologic: unable to assess (awake, alert, not obeying commands) Psychiatric: other (unable to assess) CBC and BMP: 04/30/19 09:08 04/30/19 09:08 ABG, PT/INR, D-dimer: ABG POC ABG pH 7.565 (7.35-7.45) H 04/19/19 04:35 ABG pH 7.396 pH Units (7.350-7.450) 04/03/19 05:35 POC ABG pCO2 36.2 (35-45) 04/19/19 04:35 ABG pCO2 32.2 mm Hg 04/03/19 05:35 POC ABG pO2 88 (80-105) 04/19/19 04:35 ABG pO2 97.7 mm Hg (80.0-90.0) H 04/03/19 05:35 POC ABG HCO3 32.8 (22-26 mml/L) 04/19/19 04:35 POC ABG Total CO2 34 (23-27mmol/L) 04/19/19 04:35 POC ABG O2 Sat 98 04/19/19 04:35 ABG O2 Saturation 97.6 % (95.0-99.0) 04/03/19 05:35 PT/INR, D-dimer PT 13.9 Sec. (12.2-14.9) 04/01/19 17:14 INR 1.10 (0.87-1.13) 04/01/19 17:14 D-Dimer 4526.86 ng/mlDDU (0-234) H 04/06/19 00:06 Abnormal lab findings: Abnormal Labs 03/29/19 03/29/19 03/29/19 19:11 19:20 19:20 WBC 26.7 H RBC 2.52 L Hgb 8.1 L Hct MCV 148 H MCH MCHC 22 L RDW 18.5 H Plt Count Lymph % (Auto) [place] % (Auto) Lymph # Seg Neutrophils % Seg Neuts % (Manual) 82.0 H Lymphocytes % (Manual) 7.0 L Nucleated RBC % Seg Neutrophils # Seg Neutrophils # Man 21.9 H Lymphocytes # (Manual) Monocytes # (Manual) 1.9 H PT 21.8 H INR 1.95 H APTT 74.5 H* D-Dimer POC ABG pH ABG pH POC ABG pCO2 POC ABG pO2 ABG pO2 ABG HCO3 ABG O2 Saturation ABG Base Excess ABG Hemoglobin VBG pH Oxyhemoglobin Sodium Potassium Chloride Carbon Dioxide BUN Creatinine Glucose POC Glucose > 500 H Lactic Acid Calcium Phosphorus Magnesium Iron TIBC Direct Bilirubin AST ALT Alkaline Phosphatase Total Creatine Kinase CK-MB (CK-2) C-Reactive Protein Total Protein Albumin Vitamin B12 Urine WBC (Auto) Salicylates Acetaminophen Miscellaneous Test Crossmatch 03/29/19 03/29/19 03/29/19 19:20 19:47 20:59 WBC RBC Hgb Hct MCV MCH MCHC RDW Plt Count Lymph % (Auto) [place] % (Auto) Lymph # Seg Neutrophils % Seg Neuts % (Manual) Lymphocytes % (Manual) Nucleated RBC % Seg Neutrophils # Seg Neutrophils # Man Lymphocytes # (Manual) Monocytes # (Manual) PT INR APTT D-Dimer POC ABG pH 6.892 L ABG pH POC ABG pCO2 POC ABG pO2 236 H ABG pO2 ABG HCO3 ABG O2 Saturation ABG Base Excess ABG Hemoglobin VBG pH 6.800 L* Oxyhemoglobin Sodium 118 L* Potassium 9.0 H* Chloride 64.5 L Carbon Dioxide 7 L* BUN 53 H Creatinine 2.1 H Glucose 2196 H* POC Glucose Lactic Acid Calcium 12.4 H* Phosphorus Magnesium Iron TIBC Direct Bilirubin AST 3900 H ALT 1034 H Alkaline Phosphatase 316 H Total Creatine Kinase CK-MB (CK-2) C-Reactive Protein Total Protein 5.1 L Albumin 2.8 L Vitamin B12 Urine WBC (Auto) Salicylates Acetaminophen Miscellaneous Test Crossmatch 03/29/19 03/29/19 03/29/19 22:45 22:45 22:45 WBC RBC Hgb Hct MCV MCH MCHC RDW Plt Count Lymph % (Auto) [place] % (Auto) Lymph # Seg Neutrophils % Seg Neuts % (Manual) Lymphocytes % (Manual) Nucleated RBC % Seg Neutrophils # Seg Neutrophils # Man Lymphocytes # (Manual) Monocytes # (Manual) PT INR APTT D-Dimer POC ABG pH ABG pH POC ABG pCO2 POC ABG pO2 ABG pO2 ABG HCO3 ABG O2 Saturation ABG Base Excess ABG Hemoglobin VBG pH Oxyhemoglobin Sodium 132 L D Potassium 7.0 H* Chloride 84.3 L Carbon Dioxide 3 L* BUN 48 H Creatinine 1.8 H Glucose 1779 H* POC Glucose Lactic Acid Calcium Phosphorus 21.70 H Magnesium 4.70 H Iron TIBC Direct Bilirubin AST ALT Alkaline Phosphatase Total Creatine Kinase 363 H CK-MB (CK-2) C-Reactive Protein Total Protein Albumin Vitamin B12 Urine WBC (Auto) Salicylates Acetaminophen Miscellaneous Test Crossmatch 03/29/19 03/29/19 03/30/19 Unknown Unknown 00:11 WBC RBC Hgb Hct MCV MCH MCHC RDW Plt Count Lymph % (Auto) [place] % (Auto) Lymph # Seg Neutrophils % Seg Neuts % (Manual) Lymphocytes % (Manual) Nucleated RBC % Seg Neutrophils # Seg Neutrophils # Man Lymphocytes # (Manual) Monocytes # (Manual) PT INR APTT D-Dimer POC ABG pH ABG pH POC ABG pCO2 POC ABG pO2 ABG pO2 ABG HCO3 ABG O2 Saturation ABG Base Excess ABG Hemoglobin VBG pH Oxyhemoglobin Sodium 122 L Potassium 7.9 H* 6.4 H* Chloride 75.3 L 89.7 L Carbon Dioxide 3 L* 12 L D BUN 52 H 46 H Creatinine 2.0 H 1.7 H Glucose 2043 H* 1591 H* POC Glucose Lactic Acid Calcium 7.8 L Phosphorus 19.30 H Magnesium 3.90 H Iron TIBC Direct Bilirubin AST ALT Alkaline Phosphatase Total Creatine Kinase CK-MB (CK-2) C-Reactive Protein Total Protein Albumin Vitamin B12 Urine WBC (Auto) Salicylates Acetaminophen Miscellaneous Test Crossmatch 03/30/19 03/30/19 03/30/19 00:11 02:14 02:14 WBC RBC Hgb Hct MCV MCH MCHC RDW Plt Count Lymph % (Auto) [place] % (Auto) Lymph # Seg Neutrophils % Seg Neuts % (Manual) Lymphocytes % (Manual) Nucleated RBC % Seg Neutrophils # Seg Neutrophils # Man Lymphocytes # (Manual) Monocytes # (Manual) PT INR APTT D-Dimer POC ABG pH ABG pH POC ABG pCO2 POC ABG pO2 ABG pO2 ABG HCO3 ABG O2 Saturation ABG Base Excess ABG Hemoglobin VBG pH Oxyhemoglobin Sodium Potassium Chloride Carbon Dioxide 9 L* BUN 45 H Creatinine 1.7 H Glucose 1155 H* POC Glucose Lactic Acid Calcium 7.9 L Phosphorus 10.90 H D 5.30 H D Magnesium 3.10 H 2.90 H Iron TIBC Direct Bilirubin AST ALT Alkaline Phosphatase Total Creatine Kinase CK-MB (CK-2) C-Reactive Protein Total Protein Albumin Vitamin B12 Urine WBC (Auto) Salicylates Acetaminophen Miscellaneous Test Crossmatch 03/30/19 03/30/19 03/30/19 03:15 03:30 04:23 WBC 18.0 H RBC 2.31 L Hgb 7.3 L Hct 23.8 L D MCV 103 H MCH MCHC RDW 17.1 H Plt Count Lymph % (Auto) [place] % (Auto) Lymph # Seg Neutrophils % Seg Neuts % (Manual) 79.0 H Lymphocytes % (Manual) Nucleated RBC % Seg Neutrophils # Seg Neutrophils # Man 14.2 H Lymphocytes # (Manual) Monocytes # (Manual) PT INR APTT D-Dimer POC ABG pH 7.251 L ABG pH POC ABG pCO2 POC ABG pO2 156 H ABG pO2 ABG HCO3 ABG O2 Saturation ABG Base Excess ABG Hemoglobin VBG pH Oxyhemoglobin Sodium Potassium Chloride Carbon Dioxide BUN Creatinine Glucose POC Glucose Lactic Acid Calcium Phosphorus Magnesium Iron TIBC Direct Bilirubin AST ALT Alkaline Phosphatase Total Creatine Kinase CK-MB (CK-2) C-Reactive Protein Total Protein Albumin Vitamin B12 Urine WBC (Auto) Salicylates Acetaminophen Miscellaneous Test Crossmatch See Detail 03/30/19 03/30/19 03/30/19 05:26 05:26 10:38 WBC RBC Hgb Hct MCV MCH MCHC RDW Plt Count Lymph % (Auto) [place] % (Auto) Lymph # Seg Neutrophils % Seg Neuts % (Manual) Lymphocytes % (Manual) Nucleated RBC % Seg Neutrophils # Seg Neutrophils # Man Lymphocytes # (Manual) Monocytes # (Manual) PT INR APTT D-Dimer POC ABG pH ABG pH POC ABG pCO2 POC ABG pO2 ABG pO2 ABG HCO3 ABG O2 Saturation ABG Base Excess ABG Hemoglobin VBG pH Oxyhemoglobin Sodium 158 H D Potassium 3.5 L Chloride 109.3 H Carbon Dioxide 19 L D BUN 40 H Creatinine 1.5 H Glucose 760 H* POC Glucose 380 H Lactic Acid Calcium 7.3 L Phosphorus Magnesium 2.60 H Iron TIBC Direct Bilirubin AST 19539 H ALT 2156 H Alkaline Phosphatase 271 H Total Creatine Kinase 2465 H CK-MB (CK-2) 52.7 H C-Reactive Protein Total Protein 4.5 L Albumin 2.4 L Vitamin B12 Urine WBC (Auto) Salicylates Acetaminophen Miscellaneous Test Crossmatch 03/30/19 03/30/19 03/30/19 11:08 12:25 12:57 WBC RBC Hgb Hct MCV MCH MCHC RDW Plt Count Lymph % (Auto) [place] % (Auto) Lymph # Seg Neutrophils % Seg Neuts % (Manual) Lymphocytes % (Manual) Nucleated RBC % Seg Neutrophils # Seg Neutrophils # Man Lymphocytes # (Manual) Monocytes # (Manual) PT INR APTT D-Dimer POC ABG pH ABG pH POC ABG pCO2 POC ABG pO2 ABG pO2 ABG HCO3 ABG O2 Saturation ABG Base Excess ABG Hemoglobin VBG pH Oxyhemoglobin Sodium 156 H Potassium 3.2 L Chloride 116.4 H Carbon Dioxide 21 L BUN 37 H Creatinine Glucose 162 H POC Glucose 263 H 196 H Lactic Acid Calcium 7.2 L Phosphorus Magnesium Iron TIBC Direct Bilirubin AST ALT Alkaline Phosphatase Total Creatine Kinase CK-MB (CK-2) C-Reactive Protein Total Protein Albumin Vitamin B12 Urine WBC (Auto) Salicylates Acetaminophen Miscellaneous Test Crossmatch 03/30/19 03/30/19 03/30/19 12:57 12:57 12:57 WBC RBC Hgb Hct MCV MCH MCHC RDW Plt Count Lymph % (Auto) [place] % (Auto) Lymph # Seg Neutrophils % Seg Neuts % (Manual) Lymphocytes % (Manual) Nucleated RBC % Seg Neutrophils # Seg Neutrophils # Man Lymphocytes # (Manual) Monocytes # (Manual) PT 21.0 H INR 1.86 H APTT D-Dimer POC ABG pH ABG pH POC ABG pCO2 POC ABG pO2 ABG pO2 ABG HCO3 ABG O2 Saturation ABG Base Excess ABG Hemoglobin VBG pH Oxyhemoglobin Sodium Potassium Chloride Carbon Dioxide BUN Creatinine Glucose POC Glucose Lactic Acid 9.00 H* Calcium Phosphorus Magnesium Iron TIBC Direct Bilirubin AST ALT Alkaline Phosphatase Total Creatine Kinase CK-MB (CK-2) C-Reactive Protein 2.40 H Total Protein Albumin Vitamin B12 Urine WBC (Auto) Salicylates Acetaminophen Miscellaneous Test Crossmatch 03/30/19 03/30/19 03/30/19 13:23 14:00 14:47 WBC RBC Hgb Hct MCV MCH MCHC RDW Plt Count Lymph % (Auto) [place] % (Auto) Lymph # Seg Neutrophils % Seg Neuts % (Manual) Lymphocytes % (Manual) Nucleated RBC % Seg Neutrophils # Seg Neutrophils # Man Lymphocytes # (Manual) Monocytes # (Manual) PT INR APTT D-Dimer POC ABG pH ABG pH POC ABG pCO2 POC ABG pO2 ABG pO2 ABG HCO3 ABG O2 Saturation ABG Base Excess ABG Hemoglobin VBG pH Oxyhemoglobin Sodium Potassium Chloride Carbon Dioxide BUN Creatinine Glucose POC Glucose 176 H 245 H Lactic Acid Calcium Phosphorus Magnesium Iron TIBC Direct Bilirubin AST ALT Alkaline Phosphatase Total Creatine Kinase CK-MB (CK-2) C-Reactive Protein Total Protein Albumin Vitamin B12 Urine WBC (Auto) Salicylates Acetaminophen Miscellaneous Test Flexitest 1 H Crossmatch 03/30/19 03/30/19 03/30/19 16:11 17:11 17:46 WBC RBC Hgb Hct MCV MCH MCHC RDW Plt Count Lymph % (Auto) [place] % (Auto) Lymph # Seg Neutrophils % Seg Neuts % (Manual) Lymphocytes % (Manual) Nucleated RBC % Seg Neutrophils # Seg Neutrophils # Man Lymphocytes # (Manual) Monocytes # (Manual) PT INR APTT D-Dimer POC ABG pH ABG pH POC ABG pCO2 POC ABG pO2 ABG pO2 ABG HCO3 ABG O2 Saturation ABG Base Excess ABG Hemoglobin VBG pH Oxyhemoglobin Sodium Potassium Chloride Carbon Dioxide BUN Creatinine Glucose POC Glucose 181 H 167 H 125 H Lactic Acid Calcium Phosphorus Magnesium Iron TIBC Direct Bilirubin AST ALT Alkaline Phosphatase Total Creatine Kinase CK-MB (CK-2) C-Reactive Protein Total Protein Albumin Vitamin B12 Urine WBC (Auto) Salicylates Acetaminophen Miscellaneous Test Crossmatch 03/30/19 03/30/19 03/30/19 18:59 21:31 22:19 WBC RBC Hgb Hct MCV MCH MCHC RDW Plt Count Lymph % (Auto) [place] % (Auto) Lymph # Seg Neutrophils % Seg Neuts % (Manual) Lymphocytes % (Manual) Nucleated RBC % Seg Neutrophils # Seg Neutrophils # Man Lymphocytes # (Manual) Monocytes # (Manual) PT INR APTT D-Dimer POC ABG pH ABG pH POC ABG pCO2 POC ABG pO2 ABG pO2 ABG HCO3 ABG O2 Saturation ABG Base Excess ABG Hemoglobin VBG pH Oxyhemoglobin Sodium Potassium Chloride Carbon Dioxide BUN Creatinine Glucose POC Glucose 140 H 166 H 115 H Lactic Acid Calcium Phosphorus Magnesium Iron TIBC Direct Bilirubin AST ALT Alkaline Phosphatase Total Creatine Kinase CK-MB (CK-2) C-Reactive Protein Total Protein Albumin Vitamin B12 Urine WBC (Auto) Salicylates Acetaminophen Miscellaneous Test Crossmatch 03/30/19 03/30/19 03/30/19 23:13 Unknown Unknown WBC RBC Hgb Hct MCV MCH MCHC RDW Plt Count Lymph % (Auto) [place] % (Auto) Lymph # Seg Neutrophils % Seg Neuts % (Manual) Lymphocytes % (Manual) Nucleated RBC % Seg Neutrophils # Seg Neutrophils # Man Lymphocytes # (Manual) Monocytes # (Manual) PT INR APTT D-Dimer POC ABG pH ABG pH POC ABG pCO2 POC ABG pO2 ABG pO2 47.8 L ABG HCO3 18.8 L ABG O2 Saturation 83.8 L ABG Base Excess -5.4 L ABG Hemoglobin 6.8 L VBG pH Oxyhemoglobin 81.8 L Sodium 157 H Potassium 3.3 L Chloride 117.9 H Carbon Dioxide 20 L BUN 36 H Creatinine Glucose 150 H POC Glucose 112 H Lactic Acid Calcium 7.2 L Phosphorus Magnesium Iron TIBC Direct Bilirubin AST ALT Alkaline Phosphatase Total Creatine Kinase CK-MB (CK-2) C-Reactive Protein Total Protein Albumin Vitamin B12 Urine WBC (Auto) Salicylates Acetaminophen Miscellaneous Test Crossmatch 03/30/19 03/30/19 03/31/19 Unknown Unknown 00:03 WBC RBC Hgb Hct MCV MCH MCHC RDW Plt Count Lymph % (Auto) [place] % (Auto) Lymph # Seg Neutrophils % Seg Neuts % (Manual) Lymphocytes % (Manual) Nucleated RBC % Seg Neutrophils # Seg Neutrophils # Man Lymphocytes # (Manual) Monocytes # (Manual) PT INR APTT D-Dimer POC ABG pH ABG pH POC ABG pCO2 POC ABG pO2 ABG pO2 ABG HCO3 ABG O2 Saturation ABG Base Excess ABG Hemoglobin VBG pH Oxyhemoglobin Sodium Potassium Chloride Carbon Dioxide BUN Creatinine Glucose POC Glucose 188 H Lactic Acid Calcium Phosphorus Magnesium Iron TIBC Direct Bilirubin AST ALT Alkaline Phosphatase Total Creatine Kinase CK-MB (CK-2) C-Reactive Protein Total Protein Albumin Vitamin B12 Urine WBC (Auto) Salicylates 0.8 L Acetaminophen < 5.0 L Miscellaneous Test Crossmatch 03/31/19 03/31/19 03/31/19 01:18 03:07 03:50 WBC RBC Hgb Hct MCV MCH MCHC RDW Plt Count Lymph % (Auto) [place] % (Auto) Lymph # Seg Neutrophils % Seg Neuts % (Manual) Lymphocytes % (Manual) Nucleated RBC % Seg Neutrophils # Seg Neutrophils # Man Lymphocytes # (Manual) Monocytes # (Manual) PT INR APTT D-Dimer POC ABG pH ABG pH 7.525 H POC ABG pCO2 POC ABG pO2 ABG pO2 178.0 H ABG HCO3 19.5 L ABG O2 Saturation 99.2 H ABG Base Excess -3.1 L ABG Hemoglobin 5.8 L VBG pH Oxyhemoglobin Sodium Potassium Chloride Carbon Dioxide BUN Creatinine Glucose POC Glucose 114 H 107 H Lactic Acid Calcium Phosphorus Magnesium Iron TIBC Direct Bilirubin AST ALT Alkaline Phosphatase Total Creatine Kinase CK-MB (CK-2) C-Reactive Protein Total Protein Albumin Vitamin B12 Urine WBC (Auto) Salicylates Acetaminophen Miscellaneous Test Crossmatch 03/31/19 03/31/19 03/31/19 03:51 03:51 04:05 WBC RBC 1.89 L Hgb 6.1 L Hct 18.2 L* MCV MCH MCHC RDW 17.7 H Plt Count 89 L Lymph % (Auto) [place] % (Auto) Lymph # Seg Neutrophils % Seg Neuts % (Manual) 86.0 H Lymphocytes % (Manual) 10.0 L Nucleated RBC % 1.0 H Seg Neutrophils # Seg Neutrophils # Man Lymphocytes # (Manual) 0.7 L Monocytes # (Manual) PT INR APTT D-Dimer POC ABG pH ABG pH POC ABG pCO2 POC ABG pO2 ABG pO2 ABG HCO3 ABG O2 Saturation ABG Base Excess ABG Hemoglobin VBG pH Oxyhemoglobin Sodium 151 H Potassium 3.2 L Chloride 119.4 H Carbon Dioxide 17 L BUN 35 H Creatinine Glucose 139 H POC Glucose 153 H Lactic Acid Calcium 7.1 L Phosphorus Magnesium Iron TIBC Direct Bilirubin AST ALT Alkaline Phosphatase Total Creatine Kinase CK-MB (CK-2) C-Reactive Protein Total Protein Albumin Vitamin B12 Urine WBC (Auto) Salicylates Acetaminophen Miscellaneous Test Crossmatch 03/31/19 03/31/19 03/31/19 05:05 05:35 06:23 WBC RBC Hgb Hct MCV MCH MCHC RDW Plt Count Lymph % (Auto) [place] % (Auto) Lymph # Seg Neutrophils % Seg Neuts % (Manual) Lymphocytes % (Manual) Nucleated RBC % Seg Neutrophils # Seg Neutrophils # Man Lymphocytes # (Manual) Monocytes # (Manual) PT INR APTT D-Dimer POC ABG pH ABG pH POC ABG pCO2 POC ABG pO2 ABG pO2 ABG HCO3 ABG O2 Saturation ABG Base Excess ABG Hemoglobin VBG pH Oxyhemoglobin Sodium Potassium Chloride Carbon Dioxide BUN Creatinine Glucose POC Glucose 176 H 133 H Lactic Acid 3.20 H* Calcium Phosphorus Magnesium Iron TIBC Direct Bilirubin AST ALT Alkaline Phosphatase Total Creatine Kinase CK-MB (CK-2) C-Reactive Protein Total Protein Albumin Vitamin B12 Urine WBC (Auto) Salicylates Acetaminophen Miscellaneous Test Crossmatch 03/31/19 03/31/19 03/31/19 07:50 07:51 08:20 WBC RBC Hgb Hct MCV MCH MCHC RDW Plt Count Lymph % (Auto) [place] % (Auto) Lymph # Seg Neutrophils % Seg Neuts % (Manual) Lymphocytes % (Manual) Nucleated RBC % Seg Neutrophils # Seg Neutrophils # Man Lymphocytes # (Manual) Monocytes # (Manual) PT INR APTT D-Dimer POC ABG pH ABG pH POC ABG pCO2 POC ABG pO2 ABG pO2 ABG HCO3 ABG O2 Saturation ABG Base Excess ABG Hemoglobin VBG pH Oxyhemoglobin Sodium Potassium Chloride Carbon Dioxide BUN Creatinine Glucose POC Glucose 135 H Lactic Acid 3.30 H* Calcium Phosphorus Magnesium Iron 26 L TIBC 193 L Direct Bilirubin AST ALT Alkaline Phosphatase Total Creatine Kinase CK-MB (CK-2) C-Reactive Protein Total Protein Albumin Vitamin B12 Urine WBC (Auto) Salicylates Acetaminophen Miscellaneous Test Crossmatch 03/31/19 03/31/19 03/31/19 08:20 08:20 09:06 WBC RBC Hgb Hct MCV MCH MCHC RDW Plt Count Lymph % (Auto) [place] % (Auto) Lymph # Seg Neutrophils % Seg Neuts % (Manual) Lymphocytes % (Manual) Nucleated RBC % Seg Neutrophils # Seg Neutrophils # Man Lymphocytes # (Manual) Monocytes # (Manual) PT INR APTT D-Dimer POC ABG pH ABG pH POC ABG pCO2 POC ABG pO2 ABG pO2 ABG HCO3 ABG O2 Saturation ABG Base Excess ABG Hemoglobin VBG pH Oxyhemoglobin Sodium 153 H Potassium 3.0 L Chloride 118.9 H Carbon Dioxide 18 L BUN 37 H Creatinine Glucose 132 H POC Glucose 145 H Lactic Acid Calcium 7.1 L Phosphorus Magnesium Iron TIBC Direct Bilirubin AST ALT Alkaline Phosphatase Total Creatine Kinase CK-MB (CK-2) C-Reactive Protein Total Protein Albumin Vitamin B12 > 2000 H Urine WBC (Auto) Salicylates Acetaminophen Miscellaneous Test Crossmatch 03/31/19 03/31/19 03/31/19 10:47 11:49 13:04 WBC RBC Hgb Hct MCV MCH MCHC RDW Plt Count Lymph % (Auto) [place] % (Auto) Lymph # Seg Neutrophils % Seg Neuts % (Manual) Lymphocytes % (Manual) Nucleated RBC % Seg Neutrophils # Seg Neutrophils # Man Lymphocytes # (Manual) Monocytes # (Manual) PT INR APTT D-Dimer POC ABG pH ABG pH POC ABG pCO2 POC ABG pO2 ABG pO2 ABG HCO3 ABG O2 Saturation ABG Base Excess ABG Hemoglobin VBG pH Oxyhemoglobin Sodium Potassium Chloride Carbon Dioxide BUN Creatinine Glucose POC Glucose 153 H 174 H 214 H Lactic Acid Calcium Phosphorus Magnesium Iron TIBC Direct Bilirubin AST ALT Alkaline Phosphatase Total Creatine Kinase CK-MB (CK-2) C-Reactive Protein Total Protein Albumin Vitamin B12 Urine WBC (Auto) Salicylates Acetaminophen Miscellaneous Test Crossmatch 03/31/19 03/31/19 03/31/19 13:42 15:08 16:08 WBC RBC Hgb Hct MCV MCH MCHC RDW Plt Count Lymph % (Auto) [place] % (Auto) Lymph # Seg Neutrophils % Seg Neuts % (Manual) Lymphocytes % (Manual) Nucleated RBC % Seg Neutrophils # Seg Neutrophils # Man Lymphocytes # (Manual) Monocytes # (Manual) PT INR APTT D-Dimer POC ABG pH ABG pH POC ABG pCO2 POC ABG pO2 ABG pO2 ABG HCO3 ABG O2 Saturation ABG Base Excess ABG Hemoglobin VBG pH Oxyhemoglobin Sodium Potassium Chloride Carbon Dioxide BUN Creatinine Glucose POC Glucose 186 H 136 H 150 H Lactic Acid Calcium Phosphorus Magnesium Iron TIBC Direct Bilirubin AST ALT Alkaline Phosphatase Total Creatine Kinase CK-MB (CK-2) C-Reactive Protein Total Protein Albumin Vitamin B12 Urine WBC (Auto) Salicylates Acetaminophen Miscellaneous Test Crossmatch 03/31/19 03/31/19 03/31/19 17:11 17:30 17:30 WBC RBC Hgb 7.7 L Hct 23.0 L MCV MCH MCHC RDW Plt Count Lymph % (Auto) [place] % (Auto) Lymph # Seg Neutrophils % Seg Neuts % (Manual) Lymphocytes % (Manual) Nucleated RBC % Seg Neutrophils # Seg Neutrophils # Man Lymphocytes # (Manual) Monocytes # (Manual) PT INR APTT D-Dimer POC ABG pH ABG pH POC ABG pCO2 POC ABG pO2 ABG pO2 ABG HCO3 ABG O2 Saturation ABG Base Excess ABG Hemoglobin VBG pH Oxyhemoglobin Sodium 153 H Potassium 3.5 L Chloride 119.3 H Carbon Dioxide 20 L BUN 34 H Creatinine Glucose 162 H POC Glucose 140 H Lactic Acid Calcium 7.6 L Phosphorus Magnesium Iron TIBC Direct Bilirubin AST ALT Alkaline Phosphatase Total Creatine Kinase CK-MB (CK-2) C-Reactive Protein Total Protein Albumin Vitamin B12 Urine WBC (Auto) Salicylates Acetaminophen Miscellaneous Test Crossmatch 03/31/19 03/31/19 03/31/19 17:59 18:58 20:28 WBC RBC Hgb Hct MCV MCH MCHC RDW Plt Count Lymph % (Auto) [place] % (Auto) Lymph # Seg Neutrophils % Seg Neuts % (Manual) Lymphocytes % (Manual) Nucleated RBC % Seg Neutrophils # Seg Neutrophils # Man Lymphocytes # (Manual) Monocytes # (Manual) PT INR APTT D-Dimer POC ABG pH ABG pH POC ABG pCO2 POC ABG pO2 ABG pO2 ABG HCO3 ABG O2 Saturation ABG Base Excess ABG Hemoglobin VBG pH Oxyhemoglobin Sodium Potassium Chloride Carbon Dioxide BUN Creatinine Glucose POC Glucose 156 H 152 H 138 H Lactic Acid Calcium Phosphorus Magnesium Iron TIBC Direct Bilirubin AST ALT Alkaline Phosphatase Total Creatine Kinase CK-MB (CK-2) C-Reactive Protein Total Protein Albumin Vitamin B12 Urine WBC (Auto) Salicylates Acetaminophen Miscellaneous Test Crossmatch 03/31/19 03/31/19 03/31/19 21:09 22:15 23:10 WBC RBC Hgb Hct MCV MCH MCHC RDW Plt Count Lymph % (Auto) [place] % (Auto) Lymph # Seg Neutrophils % Seg Neuts % (Manual) Lymphocytes % (Manual) Nucleated RBC % Seg Neutrophils # Seg Neutrophils # Man Lymphocytes # (Manual) Monocytes # (Manual) PT INR APTT D-Dimer POC ABG pH ABG pH POC ABG pCO2 POC ABG pO2 ABG pO2 ABG HCO3 ABG O2 Saturation ABG Base Excess ABG Hemoglobin VBG pH Oxyhemoglobin Sodium Potassium Chloride Carbon Dioxide BUN Creatinine Glucose POC Glucose 136 H 137 H 148 H Lactic Acid Calcium Phosphorus Magnesium Iron TIBC Direct Bilirubin AST ALT Alkaline Phosphatase Total Creatine Kinase CK-MB (CK-2) C-Reactive Protein Total Protein Albumin Vitamin B12 Urine WBC (Auto) Salicylates Acetaminophen Miscellaneous Test Crossmatch 04/01/19 04/01/19 04/01/19 00:05 01:17 02:11 WBC RBC Hgb Hct MCV MCH MCHC RDW Plt Count Lymph % (Auto) [place] % (Auto) Lymph # Seg Neutrophils % Seg Neuts % (Manual) Lymphocytes % (Manual) Nucleated RBC % Seg Neutrophils # Seg Neutrophils # Man Lymphocytes # (Manual) Monocytes # (Manual) PT INR APTT D-Dimer POC ABG pH ABG pH POC ABG pCO2 POC ABG pO2 ABG pO2 ABG HCO3 ABG O2 Saturation ABG Base Excess ABG Hemoglobin VBG pH Oxyhemoglobin Sodium Potassium Chloride Carbon Dioxide BUN Creatinine Glucose POC Glucose 143 H 151 H 155 H Lactic Acid Calcium Phosphorus Magnesium Iron TIBC Direct Bilirubin AST ALT Alkaline Phosphatase Total Creatine Kinase CK-MB (CK-2) C-Reactive Protein Total Protein Albumin Vitamin B12 Urine WBC (Auto) Salicylates Acetaminophen Miscellaneous Test Crossmatch 04/01/19 04/01/19 04/01/19 03:12 04:03 04:16 WBC RBC Hgb Hct MCV MCH MCHC RDW Plt Count Lymph % (Auto) [place] % (Auto) Lymph # Seg Neutrophils % Seg Neuts % (Manual) Lymphocytes % (Manual) Nucleated RBC % Seg Neutrophils # Seg Neutrophils # Man Lymphocytes # (Manual) Monocytes # (Manual) PT INR APTT D-Dimer POC ABG pH ABG pH POC ABG pCO2 POC ABG pO2 ABG pO2 ABG HCO3 ABG O2 Saturation ABG Base Excess ABG Hemoglobin VBG pH Oxyhemoglobin Sodium Potassium Chloride Carbon Dioxide BUN Creatinine Glucose POC Glucose 140 H 143 H 142 H Lactic Acid Calcium Phosphorus Magnesium Iron TIBC Direct Bilirubin AST ALT Alkaline Phosphatase Total Creatine Kinase CK-MB (CK-2) C-Reactive Protein Total Protein Albumin Vitamin B12 Urine WBC (Auto) Salicylates Acetaminophen Miscellaneous Test Crossmatch 04/01/19 04/01/19 04/01/19 05:01 05:01 05:08 WBC RBC 2.05 L Hgb 6.8 L Hct 20.5 L MCV 100 H MCH 33 H MCHC RDW 17.7 H Plt Count 53 L Lymph % (Auto) [place] % (Auto) Lymph # Seg Neutrophils % Seg Neuts % (Manual) 71.0 H Lymphocytes % (Manual) Nucleated RBC % Seg Neutrophils # Seg Neutrophils # Man Lymphocytes # (Manual) Monocytes # (Manual) PT INR APTT D-Dimer POC ABG pH ABG pH POC ABG pCO2 POC ABG pO2 ABG pO2 ABG HCO3 ABG O2 Saturation ABG Base Excess ABG Hemoglobin VBG pH Oxyhemoglobin Sodium Potassium Chloride Carbon Dioxide BUN Creatinine Glucose POC Glucose 119 H Lactic Acid Calcium Phosphorus Magnesium Iron TIBC Direct Bilirubin 0.3 H AST 4601 H ALT 1542 H Alkaline Phosphatase 185 H Total Creatine Kinase CK-MB (CK-2) C-Reactive Protein Total Protein 3.8 L Albumin 1.6 L Vitamin B12 Urine WBC (Auto) Salicylates Acetaminophen Miscellaneous Test Crossmatch 04/01/19 04/01/19 04/01/19 05:23 06:37 08:15 WBC RBC Hgb Hct MCV MCH MCHC RDW Plt Count Lymph % (Auto) [place] % (Auto) Lymph # Seg Neutrophils % Seg Neuts % (Manual) Lymphocytes % (Manual) Nucleated RBC % Seg Neutrophils # Seg Neutrophils # Man Lymphocytes # (Manual) Monocytes # (Manual) PT INR APTT D-Dimer POC ABG pH ABG pH POC ABG pCO2 POC ABG pO2 ABG pO2 ABG HCO3 ABG O2 Saturation ABG Base Excess ABG Hemoglobin VBG pH Oxyhemoglobin Sodium Potassium Chloride Carbon Dioxide BUN Creatinine Glucose POC Glucose 115 H 124 H 138 H Lactic Acid Calcium Phosphorus Magnesium Iron TIBC Direct Bilirubin AST ALT Alkaline Phosphatase Total Creatine Kinase CK-MB (CK-2) C-Reactive Protein Total Protein Albumin Vitamin B12 Urine WBC (Auto) Salicylates Acetaminophen Miscellaneous Test Crossmatch 04/01/19 04/01/19 04/01/19 09:50 10:10 10:31 WBC RBC Hgb 6.5 L Hct 19.2 L* MCV MCH MCHC RDW Plt Count Lymph % (Auto) [place] % (Auto) Lymph # Seg Neutrophils % Seg Neuts % (Manual) Lymphocytes % (Manual) Nucleated RBC % Seg Neutrophils # Seg Neutrophils # Man Lymphocytes # (Manual) Monocytes # (Manual) PT INR APTT D-Dimer POC ABG pH ABG pH POC ABG pCO2 POC ABG pO2 ABG pO2 ABG HCO3 ABG O2 Saturation ABG Base Excess ABG Hemoglobin VBG pH Oxyhemoglobin Sodium 149 H Potassium 3.5 L Chloride 119.9 H Carbon Dioxide 21 L BUN 33 H Creatinine 0.5 L Glucose 142 H POC Glucose 185 H Lactic Acid Calcium 7.3 L Phosphorus Magnesium Iron TIBC Direct Bilirubin AST 3686 H ALT 1440 H Alkaline Phosphatase 185 H Total Creatine Kinase CK-MB (CK-2) C-Reactive Protein Total Protein 3.7 L Albumin 1.8 L Vitamin B12 Urine WBC (Auto) Salicylates Acetaminophen Miscellaneous Test Crossmatch 04/01/19 04/01/19 04/01/19 11:35 13:05 14:35 WBC RBC Hgb Hct MCV MCH MCHC RDW Plt Count Lymph % (Auto) [place] % (Auto) Lymph # Seg Neutrophils % Seg Neuts % (Manual) Lymphocytes % (Manual) Nucleated RBC % Seg Neutrophils # Seg Neutrophils # Man Lymphocytes # (Manual) Monocytes # (Manual) PT INR APTT D-Dimer POC ABG pH ABG pH POC ABG pCO2 POC ABG pO2 ABG pO2 ABG HCO3 ABG O2 Saturation ABG Base Excess ABG Hemoglobin VBG pH Oxyhemoglobin Sodium Potassium Chloride Carbon Dioxide BUN Creatinine Glucose POC Glucose 201 H 169 H 134 H Lactic Acid Calcium Phosphorus Magnesium Iron TIBC Direct Bilirubin AST ALT Alkaline Phosphatase Total Creatine Kinase CK-MB (CK-2) C-Reactive Protein Total Protein Albumin Vitamin B12 Urine WBC (Auto) Salicylates Acetaminophen Miscellaneous Test Crossmatch 04/01/19 04/01/19 04/01/19 17:13 17:14 18:30 WBC RBC Hgb Hct MCV MCH MCHC RDW Plt Count Lymph % (Auto) [place] % (Auto) Lymph # Seg Neutrophils % Seg Neuts % (Manual) Lymphocytes % (Manual) Nucleated RBC % Seg Neutrophils # Seg Neutrophils # Man Lymphocytes # (Manual) Monocytes # (Manual) PT INR APTT D-Dimer 5203.68 H POC ABG pH ABG pH POC ABG pCO2 POC ABG pO2 ABG pO2 ABG HCO3 ABG O2 Saturation ABG Base Excess ABG Hemoglobin VBG pH Oxyhemoglobin Sodium Potassium Chloride Carbon Dioxide BUN Creatinine Glucose POC Glucose 69 L 128 H Lactic Acid Calcium Phosphorus Magnesium Iron TIBC Direct Bilirubin AST ALT Alkaline Phosphatase Total Creatine Kinase CK-MB (CK-2) C-Reactive Protein Total Protein Albumin Vitamin B12 Urine WBC (Auto) Salicylates Acetaminophen Miscellaneous Test Crossmatch 04/01/19 04/01/19 04/02/19 22:50 Unknown 03:40 WBC RBC Hgb Hct MCV MCH MCHC RDW Plt Count Lymph % (Auto) [place] % (Auto) Lymph # Seg Neutrophils % Seg Neuts % (Manual) Lymphocytes % (Manual) Nucleated RBC % Seg Neutrophils # Seg Neutrophils # Man Lymphocytes # (Manual) Monocytes # (Manual) PT INR APTT D-Dimer POC ABG pH ABG pH POC ABG pCO2 POC ABG pO2 ABG pO2 78.3 L 142.8 H ABG HCO3 15.5 L ABG O2 Saturation ABG Base Excess -3.5 L -8.2 L ABG Hemoglobin 6.8 L 8.2 L VBG pH Oxyhemoglobin 94.3 L Sodium Potassium Chloride Carbon Dioxide BUN Creatinine Glucose POC Glucose 342 H Lactic Acid Calcium Phosphorus Magnesium Iron TIBC Direct Bilirubin AST ALT Alkaline Phosphatase Total Creatine Kinase CK-MB (CK-2) C-Reactive Protein Total Protein Albumin Vitamin B12 Urine WBC (Auto) Salicylates Acetaminophen Miscellaneous Test Crossmatch 04/02/19 04/02/19 04/02/19 03:49 06:50 07:48 WBC RBC 2.65 L Hgb 8.6 L Hct 25.1 L MCV MCH MCHC RDW 17.6 H Plt Count 48 L Lymph % (Auto) [place] % (Auto) Lymph # Seg Neutrophils % Seg Neuts % (Manual) Lymphocytes % (Manual) Nucleated RBC % Seg Neutrophils # Seg Neutrophils # Man Lymphocytes # (Manual) Monocytes # (Manual) PT INR APTT D-Dimer POC ABG pH ABG pH POC ABG pCO2 POC ABG pO2 ABG pO2 ABG HCO3 ABG O2 Saturation ABG Base Excess ABG Hemoglobin VBG pH Oxyhemoglobin Sodium Potassium Chloride Carbon Dioxide BUN Creatinine Glucose POC Glucose 247 H 200 H Lactic Acid Calcium Phosphorus Magnesium Iron TIBC Direct Bilirubin AST ALT Alkaline Phosphatase Total Creatine Kinase CK-MB (CK-2) C-Reactive Protein Total Protein Albumin Vitamin B12 Urine WBC (Auto) Salicylates Acetaminophen Miscellaneous Test Crossmatch 04/02/19 04/02/19 04/02/19 07:48 11:18 14:07 WBC RBC Hgb Hct MCV MCH MCHC RDW Plt Count Lymph % (Auto) [place] % (Auto) Lymph # Seg Neutrophils % Seg Neuts % (Manual) Lymphocytes % (Manual) Nucleated RBC % Seg Neutrophils # Seg Neutrophils # Man Lymphocytes # (Manual) Monocytes # (Manual) PT INR APTT D-Dimer POC ABG pH ABG pH POC ABG pCO2 POC ABG pO2 ABG pO2 ABG HCO3 ABG O2 Saturation ABG Base Excess ABG Hemoglobin VBG pH Oxyhemoglobin Sodium Potassium 3.5 L Chloride 115.7 H Carbon Dioxide 19 L BUN 29 H Creatinine 0.5 L Glucose 159 H POC Glucose 154 H 149 H Lactic Acid Calcium 7.5 L Phosphorus Magnesium Iron TIBC Direct Bilirubin AST 1418 H ALT 1134 H Alkaline Phosphatase 242 H Total Creatine Kinase CK-MB (CK-2) C-Reactive Protein Total Protein 4.2 L Albumin 2.1 L Vitamin B12 Urine WBC (Auto) Salicylates Acetaminophen Miscellaneous Test Crossmatch 04/02/19 04/02/19 04/02/19 18:09 19:46 23:05 WBC RBC Hgb Hct MCV MCH MCHC RDW Plt Count Lymph % (Auto) [place] % (Auto) Lymph # Seg Neutrophils % Seg Neuts % (Manual) Lymphocytes % (Manual) Nucleated RBC % Seg Neutrophils # Seg Neutrophils # Man Lymphocytes # (Manual) Monocytes # (Manual) PT INR APTT D-Dimer POC ABG pH ABG pH POC ABG pCO2 POC ABG pO2 ABG pO2 ABG HCO3 ABG O2 Saturation ABG Base Excess ABG Hemoglobin VBG pH Oxyhemoglobin Sodium Potassium Chloride Carbon Dioxide BUN Creatinine Glucose POC Glucose 188 H 209 H 247 H Lactic Acid Calcium Phosphorus Magnesium Iron TIBC Direct Bilirubin AST ALT Alkaline Phosphatase Total Creatine Kinase CK-MB (CK-2) C-Reactive Protein Total Protein Albumin Vitamin B12 Urine WBC (Auto) Salicylates Acetaminophen Miscellaneous Test Crossmatch 04/03/19 04/03/19 04/03/19 02:58 03:40 03:40 WBC RBC 2.87 L Hgb 9.3 L Hct 27.0 L MCV MCH MCHC RDW 17.2 H Plt Count 65 L Lymph % (Auto) [place] % (Auto) 9.8 H Lymph # 1.1 L Seg Neutrophils % Seg Neuts % (Manual) Lymphocytes % (Manual) Nucleated RBC % Seg Neutrophils # Seg Neutrophils # Man Lymphocytes # (Manual) Monocytes # (Manual) PT INR APTT D-Dimer POC ABG pH ABG pH POC ABG pCO2 POC ABG pO2 ABG pO2 ABG HCO3 ABG O2 Saturation ABG Base Excess ABG Hemoglobin VBG pH Oxyhemoglobin Sodium 147 H Potassium 3.5 L Chloride 116.7 H Carbon Dioxide 18 L BUN Creatinine 0.4 L Glucose 150 H POC Glucose 166 H Lactic Acid Calcium 8.1 L Phosphorus 2.20 L Magnesium Iron TIBC Direct Bilirubin AST 594 H ALT 861 H Alkaline Phosphatase 299 H Total Creatine Kinase CK-MB (CK-2) C-Reactive Protein Total Protein 4.4 L Albumin 2.1 L Vitamin B12 Urine WBC (Auto) Salicylates Acetaminophen Miscellaneous Test Crossmatch 04/03/19 04/03/19 04/03/19 05:35 07:02 08:23 WBC RBC Hgb Hct MCV MCH MCHC RDW Plt Count Lymph % (Auto) [place] % (Auto) Lymph # Seg Neutrophils % Seg Neuts % (Manual) Lymphocytes % (Manual) Nucleated RBC % Seg Neutrophils # Seg Neutrophils # Man Lymphocytes # (Manual) Monocytes # (Manual) PT INR APTT D-Dimer POC ABG pH ABG pH POC ABG pCO2 POC ABG pO2 ABG pO2 97.7 H ABG HCO3 19.3 L ABG O2 Saturation ABG Base Excess -5.0 L ABG Hemoglobin 8.0 L VBG pH Oxyhemoglobin Sodium Potassium Chloride Carbon Dioxide BUN Creatinine Glucose POC Glucose 135 H 132 H Lactic Acid Calcium Phosphorus Magnesium Iron TIBC Direct Bilirubin AST ALT Alkaline Phosphatase Total Creatine Kinase CK-MB (CK-2) C-Reactive Protein Total Protein Albumin Vitamin B12 Urine WBC (Auto) Salicylates Acetaminophen Miscellaneous Test Crossmatch 04/03/19 04/03/19 04/03/19 11:58 15:11 17:53 WBC RBC Hgb Hct MCV MCH MCHC RDW Plt Count Lymph % (Auto) [place] % (Auto) Lymph # Seg Neutrophils % Seg Neuts % (Manual) Lymphocytes % (Manual) Nucleated RBC % Seg Neutrophils # Seg Neutrophils # Man Lymphocytes # (Manual) Monocytes # (Manual) PT INR APTT D-Dimer POC ABG pH ABG pH POC ABG pCO2 POC ABG pO2 ABG pO2 ABG HCO3 ABG O2 Saturation ABG Base Excess ABG Hemoglobin VBG pH Oxyhemoglobin Sodium Potassium Chloride Carbon Dioxide BUN Creatinine Glucose POC Glucose 179 H 213 H 223 H Lactic Acid Calcium Phosphorus Magnesium Iron TIBC Direct Bilirubin AST ALT Alkaline Phosphatase Total Creatine Kinase CK-MB (CK-2) C-Reactive Protein Total Protein Albumin Vitamin B12 Urine WBC (Auto) Salicylates Acetaminophen Miscellaneous Test Crossmatch 04/03/19 04/04/19 04/04/19 23:06 02:36 06:41 WBC RBC Hgb Hct MCV MCH MCHC RDW Plt Count Lymph % (Auto) [place] % (Auto) Lymph # Seg Neutrophils % Seg Neuts % (Manual) Lymphocytes % (Manual) Nucleated RBC % Seg Neutrophils # Seg Neutrophils # Man Lymphocytes # (Manual) Monocytes # (Manual) PT INR APTT D-Dimer POC ABG pH ABG pH POC ABG pCO2 POC ABG pO2 ABG pO2 ABG HCO3 ABG O2 Saturation ABG Base Excess ABG Hemoglobin VBG pH Oxyhemoglobin Sodium Potassium Chloride Carbon Dioxide BUN Creatinine Glucose POC Glucose 189 H 157 H 131 H Lactic Acid Calcium Phosphorus Magnesium Iron TIBC Direct Bilirubin AST ALT Alkaline Phosphatase Total Creatine Kinase CK-MB (CK-2) C-Reactive Protein Total Protein Albumin Vitamin B12 Urine WBC (Auto) Salicylates Acetaminophen Miscellaneous Test Crossmatch 04/04/19 04/04/19 04/04/19 11:42 15:45 18:21 WBC RBC Hgb Hct MCV MCH MCHC RDW Plt Count Lymph % (Auto) [place] % (Auto) Lymph # Seg Neutrophils % Seg Neuts % (Manual) Lymphocytes % (Manual) Nucleated RBC % Seg Neutrophils # Seg Neutrophils # Man Lymphocytes # (Manual) Monocytes # (Manual) PT INR APTT D-Dimer POC ABG pH ABG pH POC ABG pCO2 POC ABG pO2 ABG pO2 ABG HCO3 ABG O2 Saturation ABG Base Excess ABG Hemoglobin VBG pH Oxyhemoglobin Sodium Potassium Chloride Carbon Dioxide BUN Creatinine Glucose POC Glucose 233 H 236 H 255 H Lactic Acid Calcium Phosphorus Magnesium Iron TIBC Direct Bilirubin AST ALT Alkaline Phosphatase Total Creatine Kinase CK-MB (CK-2) C-Reactive Protein Total Protein Albumin Vitamin B12 Urine WBC (Auto) Salicylates Acetaminophen Miscellaneous Test Crossmatch 04/04/19 04/05/19 04/05/19 21:21 03:06 06:05 WBC RBC 2.68 L Hgb 8.5 L Hct 26.3 L MCV 98 H MCH MCHC RDW 17.4 H Plt Count Lymph % (Auto) [place] % (Auto) Lymph # Seg Neutrophils % Seg Neuts % (Manual) Lymphocytes % (Manual) Nucleated RBC % Seg Neutrophils # Seg Neutrophils # Man Lymphocytes # (Manual) Monocytes # (Manual) PT INR APTT D-Dimer POC ABG pH ABG pH POC ABG pCO2 POC ABG pO2 ABG pO2 ABG HCO3 ABG O2 Saturation ABG Base Excess ABG Hemoglobin VBG pH Oxyhemoglobin Sodium Potassium Chloride Carbon Dioxide BUN Creatinine Glucose POC Glucose 132 H 161 H Lactic Acid Calcium Phosphorus Magnesium Iron TIBC Direct Bilirubin AST ALT Alkaline Phosphatase Total Creatine Kinase CK-MB (CK-2) C-Reactive Protein Total Protein Albumin Vitamin B12 Urine WBC (Auto) Salicylates Acetaminophen Miscellaneous Test Crossmatch 04/05/19 04/05/19 04/05/19 06:05 06:49 10:23 WBC RBC Hgb Hct MCV MCH MCHC RDW Plt Count Lymph % (Auto) [place] % (Auto) Lymph # Seg Neutrophils % Seg Neuts % (Manual) Lymphocytes % (Manual) Nucleated RBC % Seg Neutrophils # Seg Neutrophils # Man Lymphocytes # (Manual) Monocytes # (Manual) PT INR APTT D-Dimer POC ABG pH ABG pH POC ABG pCO2 POC ABG pO2 ABG pO2 ABG HCO3 ABG O2 Saturation ABG Base Excess ABG Hemoglobin VBG pH Oxyhemoglobin Sodium Potassium Chloride 112.5 H Carbon Dioxide BUN Creatinine 0.2 L Glucose 237 H POC Glucose 283 H 296 H Lactic Acid Calcium 7.9 L Phosphorus Magnesium Iron TIBC Direct Bilirubin AST ALT Alkaline Phosphatase Total Creatine Kinase CK-MB (CK-2) C-Reactive Protein Total Protein Albumin Vitamin B12 Urine WBC (Auto) Salicylates Acetaminophen Miscellaneous Test Crossmatch 04/05/19 04/05/19 04/05/19 14:46 18:19 20:35 WBC RBC Hgb Hct MCV MCH MCHC RDW Plt Count Lymph % (Auto) [place] % (Auto) Lymph # Seg Neutrophils % Seg Neuts % (Manual) Lymphocytes % (Manual) Nucleated RBC % Seg Neutrophils # Seg Neutrophils # Man Lymphocytes # (Manual) Monocytes # (Manual) PT INR APTT D-Dimer POC ABG pH ABG pH POC ABG pCO2 POC ABG pO2 ABG pO2 ABG HCO3 ABG O2 Saturation ABG Base Excess ABG Hemoglobin VBG pH Oxyhemoglobin Sodium Potassium Chloride Carbon Dioxide BUN Creatinine Glucose POC Glucose 225 H 259 H 236 H Lactic Acid Calcium Phosphorus Magnesium Iron TIBC Direct Bilirubin AST ALT Alkaline Phosphatase Total Creatine Kinase CK-MB (CK-2) C-Reactive Protein Total Protein Albumin Vitamin B12 Urine WBC (Auto) Salicylates Acetaminophen Miscellaneous Test Crossmatch 04/05/19 04/06/19 04/06/19 23:11 00:06 03:14 WBC RBC Hgb Hct MCV MCH MCHC RDW Plt Count Lymph % (Auto) [place] % (Auto) Lymph # Seg Neutrophils % Seg Neuts % (Manual) Lymphocytes % (Manual) Nucleated RBC % Seg Neutrophils # Seg Neutrophils # Man Lymphocytes # (Manual) Monocytes # (Manual) PT INR APTT D-Dimer 4526.86 H POC ABG pH ABG pH POC ABG pCO2 POC ABG pO2 ABG pO2 ABG HCO3 ABG O2 Saturation ABG Base Excess ABG Hemoglobin VBG pH Oxyhemoglobin Sodium Potassium Chloride Carbon Dioxide BUN Creatinine Glucose POC Glucose 205 H 228 H Lactic Acid Calcium Phosphorus Magnesium Iron TIBC Direct Bilirubin AST ALT Alkaline Phosphatase Total Creatine Kinase CK-MB (CK-2) C-Reactive Protein Total Protein Albumin Vitamin B12 Urine WBC (Auto) Salicylates Acetaminophen Miscellaneous Test Crossmatch 04/06/19 04/06/19 04/06/19 05:20 05:20 07:57 WBC 15.1 H RBC 2.90 L Hgb 9.1 L Hct 28.0 L MCV MCH MCHC RDW 17.3 H Plt Count Lymph % (Auto) [place] % (Auto) Lymph # Seg Neutrophils % Seg Neuts % (Manual) Lymphocytes % (Manual) Nucleated RBC % Seg Neutrophils # Seg Neutrophils # Man Lymphocytes # (Manual) Monocytes # (Manual) PT INR APTT D-Dimer POC ABG pH ABG pH POC ABG pCO2 POC ABG pO2 ABG pO2 ABG HCO3 ABG O2 Saturation ABG Base Excess ABG Hemoglobin VBG pH Oxyhemoglobin Sodium Potassium Chloride Carbon Dioxide BUN Creatinine 0.2 L Glucose 161 H POC Glucose 191 H Lactic Acid Calcium 8.0 L Phosphorus Magnesium Iron TIBC Direct Bilirubin AST ALT Alkaline Phosphatase Total Creatine Kinase CK-MB (CK-2) C-Reactive Protein Total Protein Albumin Vitamin B12 Urine WBC (Auto) Salicylates Acetaminophen Miscellaneous Test Crossmatch 04/06/19 04/06/19 04/06/19 12:09 18:24 22:07 WBC RBC Hgb Hct MCV MCH MCHC RDW Plt Count Lymph % (Auto) [place] % (Auto) Lymph # Seg Neutrophils % Seg Neuts % (Manual) Lymphocytes % (Manual) Nucleated RBC % Seg Neutrophils # Seg Neutrophils # Man Lymphocytes # (Manual) Monocytes # (Manual) PT INR APTT D-Dimer POC ABG pH ABG pH POC ABG pCO2 POC ABG pO2 ABG pO2 ABG HCO3 ABG O2 Saturation ABG Base Excess ABG Hemoglobin VBG pH Oxyhemoglobin Sodium Potassium Chloride Carbon Dioxide BUN Creatinine Glucose POC Glucose 143 H 161 H 140 H Lactic Acid Calcium Phosphorus Magnesium Iron TIBC Direct Bilirubin AST ALT Alkaline Phosphatase Total Creatine Kinase CK-MB (CK-2) C-Reactive Protein Total Protein Albumin Vitamin B12 Urine WBC (Auto) Salicylates Acetaminophen Miscellaneous Test Crossmatch 04/07/19 04/07/19 04/07/19 03:00 04:30 04:30 WBC 13.0 H RBC 2.65 L Hgb 8.3 L Hct 25.5 L MCV MCH MCHC RDW 17.0 H Plt Count Lymph % (Auto) [place] % (Auto) Lymph # Seg Neutrophils % Seg Neuts % (Manual) Lymphocytes % (Manual) Nucleated RBC % Seg Neutrophils # Seg Neutrophils # Man Lymphocytes # (Manual) Monocytes # (Manual) PT INR APTT D-Dimer POC ABG pH ABG pH POC ABG pCO2 POC ABG pO2 ABG pO2 ABG HCO3 ABG O2 Saturation ABG Base Excess ABG Hemoglobin VBG pH Oxyhemoglobin Sodium Potassium Chloride Carbon Dioxide BUN Creatinine 0.2 L Glucose 208 H POC Glucose 224 H Lactic Acid Calcium 7.7 L Phosphorus Magnesium Iron TIBC Direct Bilirubin AST ALT Alkaline Phosphatase Total Creatine Kinase CK-MB (CK-2) C-Reactive Protein Total Protein Albumin Vitamin B12 Urine WBC (Auto) Salicylates Acetaminophen Miscellaneous Test Crossmatch 04/07/19 04/07/19 04/07/19 05:47 08:27 10:33 WBC RBC Hgb Hct MCV MCH MCHC RDW Plt Count Lymph % (Auto) [place] % (Auto) Lymph # Seg Neutrophils % Seg Neuts % (Manual) Lymphocytes % (Manual) Nucleated RBC % Seg Neutrophils # Seg Neutrophils # Man Lymphocytes # (Manual) Monocytes # (Manual) PT INR APTT D-Dimer POC ABG pH ABG pH POC ABG pCO2 POC ABG pO2 ABG pO2 ABG HCO3 ABG O2 Saturation ABG Base Excess ABG Hemoglobin VBG pH Oxyhemoglobin Sodium Potassium Chloride Carbon Dioxide BUN Creatinine Glucose POC Glucose 225 H 176 H 207 H Lactic Acid Calcium Phosphorus Magnesium Iron TIBC Direct Bilirubin AST ALT Alkaline Phosphatase Total Creatine Kinase CK-MB (CK-2) C-Reactive Protein Total Protein Albumin Vitamin B12 Urine WBC (Auto) Salicylates Acetaminophen Miscellaneous Test Crossmatch 04/07/19 04/07/19 04/07/19 14:13 18:32 22:42 WBC RBC Hgb Hct MCV MCH MCHC RDW Plt Count Lymph % (Auto) [place] % (Auto) Lymph # Seg Neutrophils % Seg Neuts % (Manual) Lymphocytes % (Manual) Nucleated RBC % Seg Neutrophils # Seg Neutrophils # Man Lymphocytes # (Manual) Monocytes # (Manual) PT INR APTT D-Dimer POC ABG pH ABG pH POC ABG pCO2 POC ABG pO2 ABG pO2 ABG HCO3 ABG O2 Saturation ABG Base Excess ABG Hemoglobin VBG pH Oxyhemoglobin Sodium Potassium Chloride Carbon Dioxide BUN Creatinine Glucose POC Glucose 219 H 227 H 238 H Lactic Acid Calcium Phosphorus Magnesium Iron TIBC Direct Bilirubin AST ALT Alkaline Phosphatase Total Creatine Kinase CK-MB (CK-2) C-Reactive Protein Total Protein Albumin Vitamin B12 Urine WBC (Auto) Salicylates Acetaminophen Miscellaneous Test Crossmatch 04/08/19 04/08/19 04/08/19 02:31 05:37 14:10 WBC RBC Hgb Hct MCV MCH MCHC RDW Plt Count Lymph % (Auto) [place] % (Auto) Lymph # Seg Neutrophils % Seg Neuts % (Manual) Lymphocytes % (Manual) Nucleated RBC % Seg Neutrophils # Seg Neutrophils # Man Lymphocytes # (Manual) Monocytes # (Manual) PT INR APTT D-Dimer POC ABG pH ABG pH POC ABG pCO2 POC ABG pO2 ABG pO2 ABG HCO3 ABG O2 Saturation ABG Base Excess ABG Hemoglobin VBG pH Oxyhemoglobin Sodium Potassium Chloride Carbon Dioxide BUN Creatinine Glucose POC Glucose 194 H 194 H 139 H Lactic Acid Calcium Phosphorus Magnesium Iron TIBC Direct Bilirubin AST ALT Alkaline Phosphatase Total Creatine Kinase CK-MB (CK-2) C-Reactive Protein Total Protein Albumin Vitamin B12 Urine WBC (Auto) Salicylates Acetaminophen Miscellaneous Test Crossmatch 04/08/19 04/08/19 04/09/19 17:43 23:20 03:28 WBC RBC Hgb Hct MCV MCH MCHC RDW Plt Count Lymph % (Auto) [place] % (Auto) Lymph # Seg Neutrophils % Seg Neuts % (Manual) Lymphocytes % (Manual) Nucleated RBC % Seg Neutrophils # Seg Neutrophils # Man Lymphocytes # (Manual) Monocytes # (Manual) PT INR APTT D-Dimer POC ABG pH ABG pH POC ABG pCO2 POC ABG pO2 ABG pO2 ABG HCO3 ABG O2 Saturation ABG Base Excess ABG Hemoglobin VBG pH Oxyhemoglobin Sodium Potassium Chloride Carbon Dioxide BUN Creatinine Glucose POC Glucose 261 H 277 H 301 H Lactic Acid Calcium Phosphorus Magnesium Iron TIBC Direct Bilirubin AST ALT Alkaline Phosphatase Total Creatine Kinase CK-MB (CK-2) C-Reactive Protein Total Protein Albumin Vitamin B12 Urine WBC (Auto) Salicylates Acetaminophen Miscellaneous Test Crossmatch 04/09/19 04/09/19 04/09/19 05:35 05:35 05:35 WBC RBC 2.78 L Hgb 9.0 L Hct 26.7 L MCV MCH MCHC RDW 17.0 H Plt Count Lymph % (Auto) [place] % (Auto) Lymph # Seg Neutrophils % Seg Neuts % (Manual) Lymphocytes % (Manual) Nucleated RBC % Seg Neutrophils # Seg Neutrophils # Man Lymphocytes # (Manual) Monocytes # (Manual) PT INR APTT D-Dimer POC ABG pH ABG pH POC ABG pCO2 POC ABG pO2 ABG pO2 ABG HCO3 ABG O2 Saturation ABG Base Excess ABG Hemoglobin VBG pH Oxyhemoglobin Sodium Potassium Chloride Carbon Dioxide 31 H BUN Creatinine 0.2 L Glucose 218 H POC Glucose 240 H Lactic Acid Calcium Phosphorus Magnesium Iron TIBC Direct Bilirubin AST ALT Alkaline Phosphatase Total Creatine Kinase CK-MB (CK-2) C-Reactive Protein Total Protein Albumin Vitamin B12 Urine WBC (Auto) Salicylates Acetaminophen Miscellaneous Test Crossmatch 04/09/19 04/09/19 04/09/19 09:01 12:23 17:33 WBC RBC Hgb Hct MCV MCH MCHC RDW Plt Count Lymph % (Auto) [place] % (Auto) Lymph # Seg Neutrophils % Seg Neuts % (Manual) Lymphocytes % (Manual) Nucleated RBC % Seg Neutrophils # Seg Neutrophils # Man Lymphocytes # (Manual) Monocytes # (Manual) PT INR APTT D-Dimer POC ABG pH ABG pH POC ABG pCO2 POC ABG pO2 ABG pO2 ABG HCO3 ABG O2 Saturation ABG Base Excess ABG Hemoglobin VBG pH Oxyhemoglobin Sodium Potassium Chloride Carbon Dioxide BUN Creatinine Glucose POC Glucose 160 H 162 H 149 H Lactic Acid Calcium Phosphorus Magnesium Iron TIBC Direct Bilirubin AST ALT Alkaline Phosphatase Total Creatine Kinase CK-MB (CK-2) C-Reactive Protein Total Protein Albumin Vitamin B12 Urine WBC (Auto) Salicylates Acetaminophen Miscellaneous Test Crossmatch 04/09/19 04/09/19 04/10/19 21:26 22:28 03:16 WBC RBC Hgb Hct MCV MCH MCHC RDW Plt Count Lymph % (Auto) [place] % (Auto) Lymph # Seg Neutrophils % Seg Neuts % (Manual) Lymphocytes % (Manual) Nucleated RBC % Seg Neutrophils # Seg Neutrophils # Man Lymphocytes # (Manual) Monocytes # (Manual) PT INR APTT D-Dimer POC ABG pH ABG pH POC ABG pCO2 POC ABG pO2 ABG pO2 ABG HCO3 ABG O2 Saturation ABG Base Excess ABG Hemoglobin VBG pH Oxyhemoglobin Sodium Potassium Chloride Carbon Dioxide BUN Creatinine Glucose POC Glucose 196 H 224 H 163 H Lactic Acid Calcium Phosphorus Magnesium Iron TIBC Direct Bilirubin AST ALT Alkaline Phosphatase Total Creatine Kinase CK-MB (CK-2) C-Reactive Protein Total Protein Albumin Vitamin B12 Urine WBC (Auto) Salicylates Acetaminophen Miscellaneous Test Crossmatch 04/10/19 04/10/19 04/10/19 04:15 04:15 05:30 WBC RBC 2.88 L Hgb 9.2 L Hct 27.9 L MCV MCH MCHC RDW 17.0 H Plt Count 454 H Lymph % (Auto) [place] % (Auto) Lymph # Seg Neutrophils % Seg Neuts % (Manual) Lymphocytes % (Manual) Nucleated RBC % Seg Neutrophils # Seg Neutrophils # Man Lymphocytes # (Manual) Monocytes # (Manual) PT INR APTT D-Dimer POC ABG pH ABG pH POC ABG pCO2 POC ABG pO2 ABG pO2 ABG HCO3 ABG O2 Saturation ABG Base Excess ABG Hemoglobin VBG pH Oxyhemoglobin Sodium Potassium Chloride Carbon Dioxide 32 H BUN Creatinine 0.2 L Glucose 126 H POC Glucose 135 H Lactic Acid Calcium Phosphorus Magnesium Iron TIBC Direct Bilirubin AST ALT Alkaline Phosphatase Total Creatine Kinase CK-MB (CK-2) C-Reactive Protein Total Protein Albumin Vitamin B12 Urine WBC (Auto) Salicylates Acetaminophen Miscellaneous Test Crossmatch 04/10/19 04/10/19 04/10/19 12:14 15:29 23:38 WBC RBC Hgb Hct MCV MCH MCHC RDW Plt Count Lymph % (Auto) [place] % (Auto) Lymph # Seg Neutrophils % Seg Neuts % (Manual) Lymphocytes % (Manual) Nucleated RBC % Seg Neutrophils # Seg Neutrophils # Man Lymphocytes # (Manual) Monocytes # (Manual) PT INR APTT D-Dimer POC ABG pH ABG pH POC ABG pCO2 POC ABG pO2 ABG pO2 ABG HCO3 ABG O2 Saturation ABG Base Excess ABG Hemoglobin VBG pH Oxyhemoglobin Sodium Potassium Chloride Carbon Dioxide BUN Creatinine Glucose POC Glucose 109 H 149 H 268 H Lactic Acid Calcium Phosphorus Magnesium Iron TIBC Direct Bilirubin AST ALT Alkaline Phosphatase Total Creatine Kinase CK-MB (CK-2) C-Reactive Protein Total Protein Albumin Vitamin B12 Urine WBC (Auto) Salicylates Acetaminophen Miscellaneous Test Crossmatch 04/11/19 04/11/19 04/11/19 05:27 12:08 18:08 WBC RBC Hgb Hct MCV MCH MCHC RDW Plt Count Lymph % (Auto) [place] % (Auto) Lymph # Seg Neutrophils % Seg Neuts % (Manual) Lymphocytes % (Manual) Nucleated RBC % Seg Neutrophils # Seg Neutrophils # Man Lymphocytes # (Manual) Monocytes # (Manual) PT INR APTT D-Dimer POC ABG pH ABG pH POC ABG pCO2 POC ABG pO2 ABG pO2 ABG HCO3 ABG O2 Saturation ABG Base Excess ABG Hemoglobin VBG pH Oxyhemoglobin Sodium Potassium Chloride Carbon Dioxide BUN Creatinine Glucose POC Glucose 109 H 185 H 190 H Lactic Acid Calcium Phosphorus Magnesium Iron TIBC Direct Bilirubin AST ALT Alkaline Phosphatase Total Creatine Kinase CK-MB (CK-2) C-Reactive Protein Total Protein Albumin Vitamin B12 Urine WBC (Auto) Salicylates Acetaminophen Miscellaneous Test Crossmatch 09/04/12/19 04/12/19 23:23 06:00 11:42 WBC RBC Hgb Hct MCV MCH MCHC RDW Plt Count Lymph % (Auto) [place] % (Auto) Lymph # Seg Neutrophils % Seg Neuts % (Manual) Lymphocytes % (Manual) Nucleated RBC % Seg Neutrophils # Seg Neutrophils # Man Lymphocytes # (Manual) Monocytes # (Manual) PT INR APTT D-Dimer POC ABG pH ABG pH POC ABG pCO2 POC ABG pO2 ABG pO2 ABG HCO3 ABG O2 Saturation ABG Base Excess ABG Hemoglobin VBG pH Oxyhemoglobin Sodium Potassium Chloride Carbon Dioxide BUN Creatinine Glucose POC Glucose 127 H 201 H 161 H Lactic Acid Calcium Phosphorus Magnesium Iron TIBC Direct Bilirubin AST ALT Alkaline Phosphatase Total Creatine Kinase CK-MB (CK-2) C-Reactive Protein Total Protein Albumin Vitamin B12 Urine WBC (Auto) Salicylates Acetaminophen Miscellaneous Test Crossmatch 04/12/19 04/12/19 04/12/19 17:56 20:07 21:59 WBC RBC Hgb Hct MCV MCH MCHC RDW Plt Count Lymph % (Auto) [place] % (Auto) Lymph # Seg Neutrophils % Seg Neuts % (Manual) Lymphocytes % (Manual) Nucleated RBC % Seg Neutrophils # Seg Neutrophils # Man Lymphocytes # (Manual) Monocytes # (Manual) PT INR APTT D-Dimer POC ABG pH ABG pH POC ABG pCO2 POC ABG pO2 ABG pO2 ABG HCO3 ABG O2 Saturation ABG Base Excess ABG Hemoglobin VBG pH Oxyhemoglobin Sodium Potassium Chloride Carbon Dioxide BUN Creatinine Glucose POC Glucose 145 H 158 H 203 H Lactic Acid Calcium Phosphorus Magnesium Iron TIBC Direct Bilirubin AST ALT Alkaline Phosphatase Total Creatine Kinase CK-MB (CK-2) C-Reactive Protein Total Protein Albumin Vitamin B12 Urine WBC (Auto) Salicylates Acetaminophen Miscellaneous Test Crossmatch 04/12/19 04/13/19 04/13/19 23:37 08:50 08:50 WBC 15.7 H RBC 3.12 L Hgb Hct 30.2 L MCV MCH 33 H MCHC RDW 18.0 H Plt Count 678 H Lymph % (Auto) [place] % (Auto) Lymph # Seg Neutrophils % Seg Neuts % (Manual) Lymphocytes % (Manual) Nucleated RBC % Seg Neutrophils # Seg Neutrophils # Man Lymphocytes # (Manual) Monocytes # (Manual) PT INR APTT D-Dimer POC ABG pH ABG pH POC ABG pCO2 POC ABG pO2 ABG pO2 ABG HCO3 ABG O2 Saturation ABG Base Excess ABG Hemoglobin VBG pH Oxyhemoglobin Sodium Potassium Chloride Carbon Dioxide BUN Creatinine < 0.2 L Glucose 46 L POC Glucose 238 H Lactic Acid Calcium Phosphorus Magnesium Iron TIBC Direct Bilirubin AST ALT Alkaline Phosphatase Total Creatine Kinase CK-MB (CK-2) C-Reactive Protein Total Protein Albumin Vitamin B12 Urine WBC (Auto) Salicylates Acetaminophen Miscellaneous Test Crossmatch 04/13/19 04/13/19 04/13/19 11:56 17:27 23:57 WBC RBC Hgb Hct MCV MCH MCHC RDW Plt Count Lymph % (Auto) [place] % (Auto) Lymph # Seg Neutrophils % Seg Neuts % (Manual) Lymphocytes % (Manual) Nucleated RBC % Seg Neutrophils # Seg Neutrophils # Man Lymphocytes # (Manual) Monocytes # (Manual) PT INR APTT D-Dimer POC ABG pH ABG pH POC ABG pCO2 POC ABG pO2 ABG pO2 ABG HCO3 ABG O2 Saturation ABG Base Excess ABG Hemoglobin VBG pH Oxyhemoglobin Sodium Potassium Chloride Carbon Dioxide BUN Creatinine Glucose POC Glucose 40 L 66 L 65 L Lactic Acid Calcium Phosphorus Magnesium Iron TIBC Direct Bilirubin AST ALT Alkaline Phosphatase Total Creatine Kinase CK-MB (CK-2) C-Reactive Protein Total Protein Albumin Vitamin B12 Urine WBC (Auto) Salicylates Acetaminophen Miscellaneous Test Crossmatch 04/14/19 04/14/19 04/14/19 05:28 08:20 08:20 WBC 17.8 H RBC 3.26 L Hgb Hct MCV 98 H MCH MCHC RDW 18.3 H Plt Count 622 H Lymph % (Auto) [place] % (Auto) Lymph # Seg Neutrophils % Seg Neuts % (Manual) Lymphocytes % (Manual) Nucleated RBC % Seg Neutrophils # Seg Neutrophils # Man Lymphocytes # (Manual) Monocytes # (Manual) PT INR APTT D-Dimer POC ABG pH ABG pH POC ABG pCO2 POC ABG pO2 ABG pO2 ABG HCO3 ABG O2 Saturation ABG Base Excess ABG Hemoglobin VBG pH Oxyhemoglobin Sodium Potassium Chloride Carbon Dioxide BUN 6 L Creatinine < 0.2 L Glucose 154 H POC Glucose 149 H Lactic Acid Calcium Phosphorus Magnesium Iron TIBC Direct Bilirubin AST ALT Alkaline Phosphatase Total Creatine Kinase CK-MB (CK-2) C-Reactive Protein Total Protein Albumin Vitamin B12 Urine WBC (Auto) Salicylates Acetaminophen Miscellaneous Test Crossmatch 04/14/19 04/14/19 04/14/19 12:16 17:54 23:35 WBC RBC Hgb Hct MCV MCH MCHC RDW Plt Count Lymph % (Auto) [place] % (Auto) Lymph # Seg Neutrophils % Seg Neuts % (Manual) Lymphocytes % (Manual) Nucleated RBC % Seg Neutrophils # Seg Neutrophils # Man Lymphocytes # (Manual) Monocytes # (Manual) PT INR APTT D-Dimer POC ABG pH ABG pH POC ABG pCO2 POC ABG pO2 ABG pO2 ABG HCO3 ABG O2 Saturation ABG Base Excess ABG Hemoglobin VBG pH Oxyhemoglobin Sodium Potassium Chloride Carbon Dioxide BUN Creatinine Glucose POC Glucose 176 H 224 H 173 H Lactic Acid Calcium Phosphorus Magnesium Iron TIBC Direct Bilirubin AST ALT Alkaline Phosphatase Total Creatine Kinase CK-MB (CK-2) C-Reactive Protein Total Protein Albumin Vitamin B12 Urine WBC (Auto) Salicylates Acetaminophen Miscellaneous Test Crossmatch 04/15/19 04/15/19 04/15/19 05:44 12:44 18:06 WBC RBC Hgb Hct MCV MCH MCHC RDW Plt Count Lymph % (Auto) [place] % (Auto) Lymph # Seg Neutrophils % Seg Neuts % (Manual) Lymphocytes % (Manual) Nucleated RBC % Seg Neutrophils # Seg Neutrophils # Man Lymphocytes # (Manual) Monocytes # (Manual) PT INR APTT D-Dimer POC ABG pH 7.461 H ABG pH POC ABG pCO2 45.5 H POC ABG pO2 ABG pO2 ABG HCO3 ABG O2 Saturation ABG Base Excess ABG Hemoglobin VBG pH Oxyhemoglobin Sodium Potassium Chloride Carbon Dioxide BUN Creatinine Glucose POC Glucose 255 H 365 H Lactic Acid Calcium Phosphorus Magnesium Iron TIBC Direct Bilirubin AST ALT Alkaline Phosphatase Total Creatine Kinase CK-MB (CK-2) C-Reactive Protein Total Protein Albumin Vitamin B12 Urine WBC (Auto) Salicylates Acetaminophen Miscellaneous Test Crossmatch 04/15/19 04/15/19 04/16/19 18:06 23:34 00:40 WBC RBC Hgb Hct MCV MCH MCHC RDW Plt Count Lymph % (Auto) [place] % (Auto) Lymph # Seg Neutrophils % Seg Neuts % (Manual) Lymphocytes % (Manual) Nucleated RBC % Seg Neutrophils # Seg Neutrophils # Man Lymphocytes # (Manual) Monocytes # (Manual) PT INR APTT D-Dimer POC ABG pH ABG pH POC ABG pCO2 POC ABG pO2 ABG pO2 ABG HCO3 ABG O2 Saturation ABG Base Excess ABG Hemoglobin VBG pH Oxyhemoglobin Sodium Potassium Chloride Carbon Dioxide BUN Creatinine Glucose POC Glucose 157 H 56 L 107 H Lactic Acid Calcium Phosphorus Magnesium Iron TIBC Direct Bilirubin AST ALT Alkaline Phosphatase Total Creatine Kinase CK-MB (CK-2) C-Reactive Protein Total Protein Albumin Vitamin B12 Urine WBC (Auto) Salicylates Acetaminophen Miscellaneous Test Crossmatch 04/16/19 04/16/19 04/16/19 09:06 09:06 11:21 WBC 12.9 H RBC 2.95 L Hgb 9.7 L Hct 28.9 L MCV 98 H MCH 33 H MCHC RDW 17.7 H Plt Count 581 H Lymph % (Auto) [place] % (Auto) Lymph # Seg Neutrophils % Seg Neuts % (Manual) Lymphocytes % (Manual) Nucleated RBC % Seg Neutrophils # Seg Neutrophils # Man Lymphocytes # (Manual) Monocytes # (Manual) PT INR APTT D-Dimer POC ABG pH ABG pH POC ABG pCO2 POC ABG pO2 ABG pO2 ABG HCO3 ABG O2 Saturation ABG Base Excess ABG Hemoglobin VBG pH Oxyhemoglobin Sodium Potassium Chloride Carbon Dioxide 31 H BUN Creatinine 0.2 L Glucose 155 H POC Glucose 184 H Lactic Acid Calcium Phosphorus Magnesium Iron TIBC Direct Bilirubin AST ALT Alkaline Phosphatase Total Creatine Kinase CK-MB (CK-2) C-Reactive Protein Total Protein Albumin Vitamin B12 Urine WBC (Auto) Salicylates Acetaminophen Miscellaneous Test Crossmatch 04/16/19 04/16/19 04/16/19 17:28 20:17 23:09 WBC RBC Hgb Hct MCV MCH MCHC RDW Plt Count Lymph % (Auto) [place] % (Auto) Lymph # Seg Neutrophils % Seg Neuts % (Manual) Lymphocytes % (Manual) Nucleated RBC % Seg Neutrophils # Seg Neutrophils # Man Lymphocytes # (Manual) Monocytes # (Manual) PT INR APTT D-Dimer POC ABG pH 7.479 H ABG pH POC ABG pCO2 POC ABG pO2 71 L ABG pO2 ABG HCO3 ABG O2 Saturation ABG Base Excess ABG Hemoglobin VBG pH Oxyhemoglobin Sodium Potassium Chloride Carbon Dioxide BUN Creatinine Glucose POC Glucose 173 H 178 H Lactic Acid Calcium Phosphorus Magnesium Iron TIBC Direct Bilirubin AST ALT Alkaline Phosphatase Total Creatine Kinase CK-MB (CK-2) C-Reactive Protein Total Protein Albumin Vitamin B12 Urine WBC (Auto) Salicylates Acetaminophen Miscellaneous Test Crossmatch 04/17/19 04/17/19 04/17/19 05:02 11:39 12:48 WBC RBC Hgb Hct MCV MCH MCHC RDW Plt Count Lymph % (Auto) [place] % (Auto) Lymph # Seg Neutrophils % Seg Neuts % (Manual) Lymphocytes % (Manual) Nucleated RBC % Seg Neutrophils # Seg Neutrophils # Man Lymphocytes # (Manual) Monocytes # (Manual) PT INR APTT D-Dimer POC ABG pH 7.557 H ABG pH POC ABG pCO2 32.8 L POC ABG pO2 149 H ABG pO2 ABG HCO3 ABG O2 Saturation ABG Base Excess ABG Hemoglobin VBG pH Oxyhemoglobin Sodium Potassium Chloride Carbon Dioxide BUN Creatinine Glucose POC Glucose 252 H 124 H Lactic Acid Calcium Phosphorus Magnesium Iron TIBC Direct Bilirubin AST ALT Alkaline Phosphatase Total Creatine Kinase CK-MB (CK-2) C-Reactive Protein Total Protein Albumin Vitamin B12 Urine WBC (Auto) Salicylates Acetaminophen Miscellaneous Test Crossmatch 04/17/19 04/18/19 04/18/19 23:31 05:32 11:34 WBC RBC Hgb Hct MCV MCH MCHC RDW Plt Count Lymph % (Auto) [place] % (Auto) Lymph # Seg Neutrophils % Seg Neuts % (Manual) Lymphocytes % (Manual) Nucleated RBC % Seg Neutrophils # Seg Neutrophils # Man Lymphocytes # (Manual) Monocytes # (Manual) PT INR APTT D-Dimer POC ABG pH ABG pH POC ABG pCO2 POC ABG pO2 ABG pO2 ABG HCO3 ABG O2 Saturation ABG Base Excess ABG Hemoglobin VBG pH Oxyhemoglobin Sodium Potassium Chloride Carbon Dioxide BUN Creatinine Glucose POC Glucose 149 H 334 H 344 H Lactic Acid Calcium Phosphorus Magnesium Iron TIBC Direct Bilirubin AST ALT Alkaline Phosphatase Total Creatine Kinase CK-MB (CK-2) C-Reactive Protein Total Protein Albumin Vitamin B12 Urine WBC (Auto) Salicylates Acetaminophen Miscellaneous Test Crossmatch 04/18/19 04/18/19 04/18/19 17:43 18:14 23:35 WBC RBC Hgb Hct MCV MCH MCHC RDW Plt Count Lymph % (Auto) [place] % (Auto) Lymph # Seg Neutrophils % Seg Neuts % (Manual) Lymphocytes % (Manual) Nucleated RBC % Seg Neutrophils # Seg Neutrophils # Man Lymphocytes # (Manual) Monocytes # (Manual) PT INR APTT D-Dimer POC ABG pH ABG pH POC ABG pCO2 49.2 H POC ABG pO2 ABG pO2 ABG HCO3 ABG O2 Saturation ABG Base Excess ABG Hemoglobin VBG pH Oxyhemoglobin Sodium Potassium Chloride Carbon Dioxide BUN Creatinine Glucose POC Glucose 289 H 312 H Lactic Acid Calcium Phosphorus Magnesium Iron TIBC Direct Bilirubin AST ALT Alkaline Phosphatase Total Creatine Kinase CK-MB (CK-2) C-Reactive Protein Total Protein Albumin Vitamin B12 Urine WBC (Auto) Salicylates Acetaminophen Miscellaneous Test Crossmatch 04/19/19 04/19/19 04/19/19 04:35 05:55 12:26 WBC RBC Hgb Hct MCV MCH MCHC RDW Plt Count Lymph % (Auto) [place] % (Auto) Lymph # Seg Neutrophils % Seg Neuts % (Manual) Lymphocytes % (Manual) Nucleated RBC % Seg Neutrophils # Seg Neutrophils # Man Lymphocytes # (Manual) Monocytes # (Manual) PT INR APTT D-Dimer POC ABG pH 7.565 H ABG pH POC ABG pCO2 POC ABG pO2 ABG pO2 ABG HCO3 ABG O2 Saturation ABG Base Excess ABG Hemoglobin VBG pH Oxyhemoglobin Sodium Potassium Chloride Carbon Dioxide BUN Creatinine Glucose POC Glucose 172 H 271 H Lactic Acid Calcium Phosphorus Magnesium Iron TIBC Direct Bilirubin AST ALT Alkaline Phosphatase Total Creatine Kinase CK-MB (CK-2) C-Reactive Protein Total Protein Albumin Vitamin B12 Urine WBC (Auto) Salicylates Acetaminophen Miscellaneous Test Crossmatch 04/19/19 04/19/19 04/19/19 17:54 21:10 23:35 WBC RBC Hgb Hct MCV MCH MCHC RDW Plt Count Lymph % (Auto) [place] % (Auto) Lymph # Seg Neutrophils % Seg Neuts % (Manual) Lymphocytes % (Manual) Nucleated RBC % Seg Neutrophils # Seg Neutrophils # Man Lymphocytes # (Manual) Monocytes # (Manual) PT INR APTT D-Dimer POC ABG pH ABG pH POC ABG pCO2 POC ABG pO2 ABG pO2 ABG HCO3 ABG O2 Saturation ABG Base Excess ABG Hemoglobin VBG pH Oxyhemoglobin Sodium Potassium Chloride Carbon Dioxide BUN Creatinine Glucose POC Glucose 229 H 189 H 131 H Lactic Acid Calcium Phosphorus Magnesium Iron TIBC Direct Bilirubin AST ALT Alkaline Phosphatase Total Creatine Kinase CK-MB (CK-2) C-Reactive Protein Total Protein Albumin Vitamin B12 Urine WBC (Auto) Salicylates Acetaminophen Miscellaneous Test Crossmatch 04/20/19 04/20/19 04/20/19 05:42 11:58 17:32 WBC RBC Hgb Hct MCV MCH MCHC RDW Plt Count Lymph % (Auto) [place] % (Auto) Lymph # Seg Neutrophils % Seg Neuts % (Manual) Lymphocytes % (Manual) Nucleated RBC % Seg Neutrophils # Seg Neutrophils # Man Lymphocytes # (Manual) Monocytes # (Manual) PT INR APTT D-Dimer POC ABG pH ABG pH POC ABG pCO2 POC ABG pO2 ABG pO2 ABG HCO3 ABG O2 Saturation ABG Base Excess ABG Hemoglobin VBG pH Oxyhemoglobin Sodium Potassium Chloride Carbon Dioxide BUN Creatinine Glucose POC Glucose 289 H 265 H 232 H Lactic Acid Calcium Phosphorus Magnesium Iron TIBC Direct Bilirubin AST ALT Alkaline Phosphatase Total Creatine Kinase CK-MB (CK-2) C-Reactive Protein Total Protein Albumin Vitamin B12 Urine WBC (Auto) Salicylates Acetaminophen Miscellaneous Test Crossmatch 04/21/19 04/21/19 04/21/19 00:02 05:13 12:41 WBC RBC Hgb Hct MCV MCH MCHC RDW Plt Count Lymph % (Auto) [place] % (Auto) Lymph # Seg Neutrophils % Seg Neuts % (Manual) Lymphocytes % (Manual) Nucleated RBC % Seg Neutrophils # Seg Neutrophils # Man Lymphocytes # (Manual) Monocytes # (Manual) PT INR APTT D-Dimer POC ABG pH ABG pH POC ABG pCO2 POC ABG pO2 ABG pO2 ABG HCO3 ABG O2 Saturation ABG Base Excess ABG Hemoglobin VBG pH Oxyhemoglobin Sodium Potassium Chloride Carbon Dioxide BUN Creatinine Glucose POC Glucose 126 H 233 H 205 H Lactic Acid Calcium Phosphorus Magnesium Iron TIBC Direct Bilirubin AST ALT Alkaline Phosphatase Total Creatine Kinase CK-MB (CK-2) C-Reactive Protein Total Protein Albumin Vitamin B12 Urine WBC (Auto) Salicylates Acetaminophen Miscellaneous Test Crossmatch 04/21/19 04/22/19 04/22/19 23:42 03:57 03:57 WBC 11.5 H RBC 3.44 L Hgb Hct MCV MCH MCHC RDW 16.3 H Plt Count 510 H Lymph % (Auto) [place] % (Auto) Lymph # Seg Neutrophils % Seg Neuts % (Manual) Lymphocytes % (Manual) Nucleated RBC % Seg Neutrophils # Seg Neutrophils # Man Lymphocytes # (Manual) Monocytes # (Manual) PT INR APTT D-Dimer POC ABG pH ABG pH POC ABG pCO2 POC ABG pO2 ABG pO2 ABG HCO3 ABG O2 Saturation ABG Base Excess ABG Hemoglobin VBG pH Oxyhemoglobin Sodium Potassium Chloride 96.3 L Carbon Dioxide BUN Creatinine 0.2 L Glucose 333 H POC Glucose 149 H Lactic Acid Calcium Phosphorus Magnesium Iron TIBC Direct Bilirubin AST 60 H ALT Alkaline Phosphatase 204 H Total Creatine Kinase CK-MB (CK-2) C-Reactive Protein Total Protein Albumin 3.1 L Vitamin B12 Urine WBC (Auto) Salicylates Acetaminophen Miscellaneous Test Crossmatch 04/22/19 04/22/19 04/22/19 05:18 12:03 18:17 WBC RBC Hgb Hct MCV MCH MCHC RDW Plt Count Lymph % (Auto) [place] % (Auto) Lymph # Seg Neutrophils % Seg Neuts % (Manual) Lymphocytes % (Manual) Nucleated RBC % Seg Neutrophils # Seg Neutrophils # Man Lymphocytes # (Manual) Monocytes # (Manual) PT INR APTT D-Dimer POC ABG pH ABG pH POC ABG pCO2 POC ABG pO2 ABG pO2 ABG HCO3 ABG O2 Saturation ABG Base Excess ABG Hemoglobin VBG pH Oxyhemoglobin Sodium Potassium Chloride Carbon Dioxide BUN Creatinine Glucose POC Glucose 345 H 308 H 169 H Lactic Acid Calcium Phosphorus Magnesium Iron TIBC Direct Bilirubin AST ALT Alkaline Phosphatase Total Creatine Kinase CK-MB (CK-2) C-Reactive Protein Total Protein Albumin Vitamin B12 Urine WBC (Auto) Salicylates Acetaminophen Miscellaneous Test Crossmatch 04/23/19 04/23/19 04/23/19 00:14 05:43 11:15 WBC RBC Hgb Hct MCV MCH MCHC RDW Plt Count Lymph % (Auto) [place] % (Auto) Lymph # Seg Neutrophils % Seg Neuts % (Manual) Lymphocytes % (Manual) Nucleated RBC % Seg Neutrophils # Seg Neutrophils # Man Lymphocytes # (Manual) Monocytes # (Manual) PT INR APTT D-Dimer POC ABG pH ABG pH POC ABG pCO2 POC ABG pO2 ABG pO2 ABG HCO3 ABG O2 Saturation ABG Base Excess ABG Hemoglobin VBG pH Oxyhemoglobin Sodium Potassium Chloride Carbon Dioxide BUN Creatinine Glucose POC Glucose 192 H 260 H 186 H Lactic Acid Calcium Phosphorus Magnesium Iron TIBC Direct Bilirubin AST ALT Alkaline Phosphatase Total Creatine Kinase CK-MB (CK-2) C-Reactive Protein Total Protein Albumin Vitamin B12 Urine WBC (Auto) Salicylates Acetaminophen Miscellaneous Test Crossmatch 04/23/19 04/23/19 04/24/19 15:44 21:30 00:09 WBC RBC Hgb Hct MCV MCH MCHC RDW Plt Count Lymph % (Auto) [place] % (Auto) Lymph # Seg Neutrophils % Seg Neuts % (Manual) Lymphocytes % (Manual) Nucleated RBC % Seg Neutrophils # Seg Neutrophils # Man Lymphocytes # (Manual) Monocytes # (Manual) PT INR APTT D-Dimer POC ABG pH ABG pH POC ABG pCO2 POC ABG pO2 ABG pO2 ABG HCO3 ABG O2 Saturation ABG Base Excess ABG Hemoglobin VBG pH Oxyhemoglobin Sodium Potassium Chloride Carbon Dioxide BUN Creatinine Glucose POC Glucose 164 H 407 H 280 H Lactic Acid Calcium Phosphorus Magnesium Iron TIBC Direct Bilirubin AST ALT Alkaline Phosphatase Total Creatine Kinase CK-MB (CK-2) C-Reactive Protein Total Protein Albumin Vitamin B12 Urine WBC (Auto) Salicylates Acetaminophen Miscellaneous Test Crossmatch 04/24/19 04/24/19 04/24/19 06:01 06:39 14:51 WBC RBC Hgb Hct MCV MCH MCHC RDW Plt Count Lymph % (Auto) [place] % (Auto) Lymph # Seg Neutrophils % Seg Neuts % (Manual) Lymphocytes % (Manual) Nucleated RBC % Seg Neutrophils # Seg Neutrophils # Man Lymphocytes # (Manual) Monocytes # (Manual) PT INR APTT D-Dimer POC ABG pH ABG pH POC ABG pCO2 POC ABG pO2 ABG pO2 ABG HCO3 ABG O2 Saturation ABG Base Excess ABG Hemoglobin VBG pH Oxyhemoglobin Sodium Potassium Chloride Carbon Dioxide BUN Creatinine Glucose POC Glucose 65 L 125 H 207 H Lactic Acid Calcium Phosphorus Magnesium Iron TIBC Direct Bilirubin AST ALT Alkaline Phosphatase Total Creatine Kinase CK-MB (CK-2) C-Reactive Protein Total Protein Albumin Vitamin B12 Urine WBC (Auto) Salicylates Acetaminophen Miscellaneous Test Crossmatch 04/24/19 04/25/19 04/25/19 18:03 01:46 05:56 WBC RBC Hgb Hct MCV MCH MCHC RDW Plt Count Lymph % (Auto) [place] % (Auto) Lymph # Seg Neutrophils % Seg Neuts % (Manual) Lymphocytes % (Manual) Nucleated RBC % Seg Neutrophils # Seg Neutrophils # Man Lymphocytes # (Manual) Monocytes # (Manual) PT INR APTT D-Dimer POC ABG pH ABG pH POC ABG pCO2 POC ABG pO2 ABG pO2 ABG HCO3 ABG O2 Saturation ABG Base Excess ABG Hemoglobin VBG pH Oxyhemoglobin Sodium Potassium Chloride Carbon Dioxide BUN Creatinine Glucose POC Glucose 140 H 125 H 208 H Lactic Acid Calcium Phosphorus Magnesium Iron TIBC Direct Bilirubin AST ALT Alkaline Phosphatase Total Creatine Kinase CK-MB (CK-2) C-Reactive Protein Total Protein Albumin Vitamin B12 Urine WBC (Auto) Salicylates Acetaminophen Miscellaneous Test Crossmatch 04/25/19 04/25/19 04/25/19 08:12 13:06 18:04 WBC RBC Hgb Hct MCV MCH MCHC RDW Plt Count Lymph % (Auto) [place] % (Auto) Lymph # Seg Neutrophils % Seg Neuts % (Manual) Lymphocytes % (Manual) Nucleated RBC % Seg Neutrophils # Seg Neutrophils # Man Lymphocytes # (Manual) Monocytes # (Manual) PT INR APTT D-Dimer POC ABG pH ABG pH POC ABG pCO2 POC ABG pO2 ABG pO2 ABG HCO3 ABG O2 Saturation ABG Base Excess ABG Hemoglobin VBG pH Oxyhemoglobin Sodium Potassium Chloride Carbon Dioxide BUN Creatinine Glucose POC Glucose 127 H 147 H 340 H Lactic Acid Calcium Phosphorus Magnesium Iron TIBC Direct Bilirubin AST ALT Alkaline Phosphatase Total Creatine Kinase CK-MB (CK-2) C-Reactive Protein Total Protein Albumin Vitamin B12 Urine WBC (Auto) Salicylates Acetaminophen Miscellaneous Test Crossmatch 04/26/19 04/26/19 04/26/19 00:16 05:15 11:26 WBC RBC Hgb Hct MCV MCH MCHC RDW Plt Count Lymph % (Auto) [place] % (Auto) Lymph # Seg Neutrophils % Seg Neuts % (Manual) Lymphocytes % (Manual) Nucleated RBC % Seg Neutrophils # Seg Neutrophils # Man Lymphocytes # (Manual) Monocytes # (Manual) PT INR APTT D-Dimer POC ABG pH ABG pH POC ABG pCO2 POC ABG pO2 ABG pO2 ABG HCO3 ABG O2 Saturation ABG Base Excess ABG Hemoglobin VBG pH Oxyhemoglobin Sodium Potassium Chloride Carbon Dioxide BUN Creatinine Glucose POC Glucose 137 H 136 H 365 H Lactic Acid Calcium Phosphorus Magnesium Iron TIBC Direct Bilirubin AST ALT Alkaline Phosphatase Total Creatine Kinase CK-MB (CK-2) C-Reactive Protein Total Protein Albumin Vitamin B12 Urine WBC (Auto) Salicylates Acetaminophen Miscellaneous Test Crossmatch 04/26/19 04/26/19 04/27/19 18:03 21:30 06:14 WBC RBC Hgb Hct MCV MCH MCHC RDW Plt Count Lymph % (Auto) [place] % (Auto) Lymph # Seg Neutrophils % Seg Neuts % (Manual) Lymphocytes % (Manual) Nucleated RBC % Seg Neutrophils # Seg Neutrophils # Man Lymphocytes # (Manual) Monocytes # (Manual) PT INR APTT D-Dimer POC ABG pH ABG pH POC ABG pCO2 POC ABG pO2 ABG pO2 ABG HCO3 ABG O2 Saturation ABG Base Excess ABG Hemoglobin VBG pH Oxyhemoglobin Sodium Potassium Chloride Carbon Dioxide BUN Creatinine Glucose POC Glucose 124 H 231 H 199 H Lactic Acid Calcium Phosphorus Magnesium Iron TIBC Direct Bilirubin AST ALT Alkaline Phosphatase Total Creatine Kinase CK-MB (CK-2) C-Reactive Protein Total Protein Albumin Vitamin B12 Urine WBC (Auto) Salicylates Acetaminophen Miscellaneous Test Crossmatch 04/27/19 04/27/19 04/28/19 16:39 22:22 05:55 WBC RBC Hgb Hct MCV MCH MCHC RDW Plt Count Lymph % (Auto) [place] % (Auto) Lymph # Seg Neutrophils % Seg Neuts % (Manual) Lymphocytes % (Manual) Nucleated RBC % Seg Neutrophils # Seg Neutrophils # Man Lymphocytes # (Manual) Monocytes # (Manual) PT INR APTT D-Dimer POC ABG pH ABG pH POC ABG pCO2 POC ABG pO2 ABG pO2 ABG HCO3 ABG O2 Saturation ABG Base Excess ABG Hemoglobin VBG pH Oxyhemoglobin Sodium Potassium Chloride Carbon Dioxide BUN Creatinine Glucose POC Glucose 171 H 183 H 207 H Lactic Acid Calcium Phosphorus Magnesium Iron TIBC Direct Bilirubin AST ALT Alkaline Phosphatase Total Creatine Kinase CK-MB (CK-2) C-Reactive Protein Total Protein Albumin Vitamin B12 Urine WBC (Auto) Salicylates Acetaminophen Miscellaneous Test Crossmatch 04/28/19 04/28/19 04/29/19 12:30 17:07 00:03 WBC RBC Hgb Hct MCV MCH MCHC RDW Plt Count Lymph % (Auto) [place] % (Auto) Lymph # Seg Neutrophils % Seg Neuts % (Manual) Lymphocytes % (Manual) Nucleated RBC % Seg Neutrophils # Seg Neutrophils # Man Lymphocytes # (Manual) Monocytes # (Manual) PT INR APTT D-Dimer POC ABG pH ABG pH POC ABG pCO2 POC ABG pO2 ABG pO2 ABG HCO3 ABG O2 Saturation ABG Base Excess ABG Hemoglobin VBG pH Oxyhemoglobin Sodium Potassium Chloride Carbon Dioxide BUN Creatinine Glucose POC Glucose 199 H 233 H 217 H Lactic Acid Calcium Phosphorus Magnesium Iron TIBC Direct Bilirubin AST ALT Alkaline Phosphatase Total Creatine Kinase CK-MB (CK-2) C-Reactive Protein Total Protein Albumin Vitamin B12 Urine WBC (Auto) Salicylates Acetaminophen Miscellaneous Test Crossmatch 04/29/19 04/29/19 04/29/19 05:51 09:43 09:43 WBC RBC 3.36 L Hgb Hct MCV MCH MCHC RDW 16.3 H Plt Count Lymph % (Auto) 11.1 L [place] % (Auto) Lymph # Seg Neutrophils % 81.4 H Seg Neuts % (Manual) Lymphocytes % (Manual) Nucleated RBC % Seg Neutrophils # 9.0 H Seg Neutrophils # Man Lymphocytes # (Manual) Monocytes # (Manual) PT INR APTT D-Dimer POC ABG pH ABG pH POC ABG pCO2 POC ABG pO2 ABG pO2 ABG HCO3 ABG O2 Saturation ABG Base Excess ABG Hemoglobin VBG pH Oxyhemoglobin Sodium Potassium Chloride Carbon Dioxide BUN 21 H Creatinine 0.3 L Glucose 316 H POC Glucose 149 H Lactic Acid Calcium Phosphorus Magnesium Iron TIBC Direct Bilirubin AST ALT Alkaline Phosphatase Total Creatine Kinase CK-MB (CK-2) C-Reactive Protein Total Protein Albumin Vitamin B12 Urine WBC (Auto) Salicylates Acetaminophen Miscellaneous Test Crossmatch 04/29/19 04/29/19 04/29/19 12:28 18:02 23:49 WBC RBC Hgb Hct MCV MCH MCHC RDW Plt Count Lymph % (Auto) [place] % (Auto) Lymph # Seg Neutrophils % Seg Neuts % (Manual) Lymphocytes % (Manual) Nucleated RBC % Seg Neutrophils # Seg Neutrophils # Man Lymphocytes # (Manual) Monocytes # (Manual) PT INR APTT D-Dimer POC ABG pH ABG pH POC ABG pCO2 POC ABG pO2 ABG pO2 ABG HCO3 ABG O2 Saturation ABG Base Excess ABG Hemoglobin VBG pH Oxyhemoglobin Sodium Potassium Chloride Carbon Dioxide BUN Creatinine Glucose POC Glucose 368 H 185 H 137 H Lactic Acid Calcium Phosphorus Magnesium Iron TIBC Direct Bilirubin AST ALT Alkaline Phosphatase Total Creatine Kinase CK-MB (CK-2) C-Reactive Protein Total Protein Albumin Vitamin B12 Urine WBC (Auto) Salicylates Acetaminophen Miscellaneous Test Crossmatch 04/30/19 04/30/19 04/30/19 05:56 09:08 09:08 WBC RBC 3.48 L Hgb Hct MCV MCH MCHC RDW 15.9 H Plt Count Lymph % (Auto) [place] % (Auto) Lymph # Seg Neutrophils % 73.7 H Seg Neuts % (Manual) Lymphocytes % (Manual) Nucleated RBC % Seg Neutrophils # Seg Neutrophils # Man Lymphocytes # (Manual) Monocytes # (Manual) PT INR APTT D-Dimer POC ABG pH ABG pH POC ABG pCO2 POC ABG pO2 ABG pO2 ABG HCO3 ABG O2 Saturation ABG Base Excess ABG Hemoglobin VBG pH Oxyhemoglobin Sodium Potassium Chloride Carbon Dioxide BUN 25 H Creatinine 0.3 L Glucose 290 H POC Glucose 318 H Lactic Acid Calcium Phosphorus Magnesium Iron TIBC Direct Bilirubin AST ALT Alkaline Phosphatase Total Creatine Kinase CK-MB (CK-2) C-Reactive Protein Total Protein Albumin Vitamin B12 Urine WBC (Auto) Salicylates Acetaminophen Miscellaneous Test Crossmatch 04/30/19 04/30/19 11:32 Unknown WBC RBC Hgb Hct MCV MCH MCHC RDW Plt Count Lymph % (Auto) [place] % (Auto) Lymph # Seg Neutrophils % Seg Neuts % (Manual) Lymphocytes % (Manual) Nucleated RBC % Seg Neutrophils # Seg Neutrophils # Man Lymphocytes # (Manual) Monocytes # (Manual) PT INR APTT D-Dimer POC ABG pH ABG pH POC ABG pCO2 POC ABG pO2 ABG pO2 ABG HCO3 ABG O2 Saturation ABG Base Excess ABG Hemoglobin VBG pH Oxyhemoglobin Sodium Potassium Chloride Carbon Dioxide BUN Creatinine Glucose POC Glucose 225 H Lactic Acid Calcium Phosphorus Magnesium Iron TIBC Direct Bilirubin AST ALT Alkaline Phosphatase Total Creatine Kinase CK-MB (CK-2) C-Reactive Protein Total Protein Albumin Vitamin B12 Urine WBC (Auto) 17.0 H Salicylates Acetaminophen Miscellaneous Test Crossmatch Allied health notes reviewed: nursing
[2019-04-30] MEDS: LANTUS SUB-Q SCH (21:50)
[2019-05-01] MEDS: HumaLOG SUB-Q SCH ×5 (05:57→18:10)
[2019-05-01] MEDS: ROBINUL FEEDTUBE SCH ×3 (09:36→21:03)
--- NOTE | 2019-05-01 10:09 | XRay Report ---
CHEST 1 VIEW 05/01/2019 9:45 AM INDICATION / CLINICAL INFORMATION: fever. COMPARISON: 04/18/2019. FINDINGS: SUPPORT DEVICES: Tracheostomy tube appears in appropriate position. HEART / MEDIASTINUM: No significant abnormality. LUNGS / PLEURA: No significant pulmonary or pleural abnormality. No pneumothorax. ADDITIONAL FINDINGS: No significant additional findings. IMPRESSION: 1. No acute findings. Signer Name: Pantera Hernandez MD Signed: 05/01/2019 10:05 AM Workstation Name: [id number]
[2019-05-01] MEDS: METOPROLOL PO SCH ×2 (12:00→21:03)
[2019-05-01] MEDS: ENOXAPARIN SUB-Q SCH (12:01)
[2019-05-01] MEDS: PEPCID PO SCH ×2 (12:01→21:03)
[2019-05-01] MEDS: KEPPRA PO SCH ×2 (12:01→21:03)
--- NOTE | 2019-05-01 13:43 | Progress Note ---
Assessment and Plan Assessment and plan: Patient is a 29 year old woman with a history of diabetes was brought to the emergency room following a cardiac arrest. Her last well-known time was 10:30 in the morning of presentation, she was traveling with a friend, she was unresponsive in the back seat. EMS was called, CPR was started and continued here in the emergency room. Patient was intubated in the ER, noted hypotensive started on dobutamine, epinephrine and Levophed drip, given IV fluids, found to be in DKA with BG ~2200, several metabolic derangements - placed on insulin drip and admitted to ICU. BP improved and she was weaned off pressors. Pt off pressors and extubated. Transferred to floor awaiting placement Uncontrolled DM type 1 with hyperglycemia - cont. basal insulin Lantus - cont. SSI - Blood sugar is uncontrolled and increase Lantus and add 10 units of Humalog before meals Acute respiratory failure s/p intubated, off vent - s/p trach and peg on 5 L of oxygen - Tracheostomy re-adjusted on 04/17/19 - on vent, cont nebs, - s/p Trach - Pulm following - Aspiration precautions - VAP bundle Acute anoxic encephalopathy, POA - from cardiac arrest - MR concerning for anoxic Brain injury Cardiac arrest s/p resuscitation - likely 2/2 severe hyperglycemia - preserved EF on 2D echo Generalized Anasacara -Given a dose of Bumex s/p DKA, severe Shock hypotensive +/- sepsis - resolved Now off pressors. Was on vasopressin, Levophed, Phenylephrine Sepsis with possible aspiration PNA - evident on CXR on admission with left sided infiltrates - Competed abx - Abx discontinued following notation that no evidence of liver lesion not consistent with infection per ID - Leucocytosis and thrombocytosis are likely reactive from hepatic subcapsular hematoma Patient had low-grade temp - I ordered UA, blood culture, chest x-ray and we will follow the results Head lice - multiple dosing of Permethin given, resolved Acute renal failure, likely vasomotor nephropathy - resolved Anemia, acute on chronic - no sign of blood loss s/p 2 Units PRBC transfused Hyperkalemia, resolved with fluid and insulin Hypernatremia Resolved hypokalemia, resolved Shock liver with elevated LFT and Coagulopathy - due to cardiac arrest and hypotension - cont to monitor Liver lesion ID Physician following Discontinued abx, not consistent with infection as noted above Hypermagnesemia - monitor levels as needed Hyperphosphatemia -cont to monitor, improved Stage 1 sacral ulcer, poa - upper ext blisters - pressure ulcer prevention strategies - wound care VTE Prophylaxis with Lovenox Poor prognosis DNR status Disposition: continue inpatient care, await placement in [place], [place] admissions manager rn in contact with the family Hospice transfer History Interval history: Patient was seen and evaluated during morning rounds as a bedside Patient is noncommunicative Patient has low-grade temp Hospitalist Physical - Physical exam Narrative exam: Patient is on 5 L of oxygen through the trach. The patient appeared well nourished and normally developed. Vital signs as documented. Head exam is unremarkable. No scleral icterus . Neck is without jugular venous distension, thyromegaly, or carotid bruits. Lungs are clear to auscultation. Cardiac exam reveals regular rate and Rhythm. Abdominal exam reveals normal bowel sounds. Extremities are nonedematous and both femoral and pedal pulses are normal. DIRECTOR OF OPERATIONS HOME HEALTH: Alert and oriented 3. No focal weakness. - Constitutional Vitals: Temp Pulse Resp BP Pulse Ox 100.4 F H 128 H 16 106/67 95 05/01/19 05:21 05/01/19 12:00 05/01/19 05:21 05/01/19 12:00 05/01/19 11:09 General appearance: Present: other (intubated) Results - Labs CBC & Chem 7: 04/30/19 09:08 04/30/19 09:08 Labs: Laboratory Last Values WBC 7.3 K/mm3 (4.5-11.0) 04/30/19 09:08 RBC 3.48 M/mm3 (3.65-5.03) L 04/30/19 09:08 Hgb 11.2 gm/dl (10.1-14.3) 04/30/19 09:08 Hct 33.5 % (30.3-42.9) 04/30/19 09:08 MCV 96 fl (79-97) 04/30/19 09:08 MCH 32 pg (28-32) 04/30/19 09:08 MCHC 34 % (30-34) 04/30/19 09:08 RDW 15.9 % (13.2-15.2) H 04/30/19 09:08 Plt Count 407 K/mm3 (140-440) 04/30/19 09:08 Lymph % (Auto) 18.5 % (13.4-35.0) 04/30/19 09:08 [place] % (Auto) 5.2 % (0.0-7.3) 04/30/19 09:08 Eos % (Auto) 2.0 % (0.0-4.3) 04/30/19 09:08 Baso % (Auto) 0.6 % (0.0-1.8) 04/30/19 09:08 Lymph # 1.3 K/mm3 (1.2-5.4) 04/30/19 09:08 [place] # 0.4 K/mm3 (0.0-0.8) 04/30/19 09:08 Eos # 0.1 K/mm3 (0.0-0.4) 04/30/19 09:08 Baso # 0.0 K/mm3 (0.0-0.1) 04/30/19 09:08 Add Manual Diff Complete 04/01/19 05:01 Total Counted 100 04/01/19 05:01 Seg Neutrophils % 73.7 % (40.0-70.0) H 04/30/19 09:08 Seg Neuts % (Manual) 71.0 % (40.0-70.0) H 04/01/19 05:01 Band Neutrophils % 0 % 04/01/19 05:01 Lymphocytes % (Manual) 20.0 % (13.4-35.0) 04/01/19 05:01 Reactive Lymphs % (Man) 0 % 04/01/19 05:01 Monocytes % (Manual) 7.0 % (0.0-7.3) 04/01/19 05:01 Eosinophils % (Manual) 2.0 % (0.0-4.3) 04/01/19 05:01 Basophils % (Manual) 0 % (0.0-1.8) 04/01/19 05:01 Metamyelocytes % 0 % 04/01/19 05:01 Myelocytes % 0 % 04/01/19 05:01 Promyelocytes % 0 % 04/01/19 05:01 Blast Cells % 0 % 04/01/19 05:01 Nucleated RBC % Not Reportable 04/01/19 05:01 Seg Neutrophils # 5.4 K/mm3 (1.8-7.7) 04/30/19 09:08 Seg Neutrophils # Man 4.8 K/mm3 (1.8-7.7) 04/01/19 05:01 Band Neutrophils # 0.0 K/mm3 04/01/19 05:01 Lymphocytes # (Manual) 1.4 K/mm3 (1.2-5.4) 04/01/19 05:01 Abs React Lymphs (Man) 0.0 K/mm3 04/01/19 05:01 Monocytes # (Manual) 0.5 K/mm3 (0.0-0.8) 04/01/19 05:01 Eosinophils # (Manual) 0.1 K/mm3 (0.0-0.4) 04/01/19 05:01 Basophils # (Manual) 0.0 K/mm3 (0.0-0.1) 04/01/19 05:01 Metamyelocytes # 0.0 K/mm3 04/01/19 05:01 Myelocytes # 0.0 K/mm3 04/01/19 05:01 Promyelocytes # 0.0 K/mm3 04/01/19 05:01 Blast Cells # 0.0 K/mm3 04/01/19 05:01 WBC Morphology Not Reportable 04/01/19 05:01 Hypersegmented Neuts Not Reportable 04/01/19 05:01 Hyposegmented Neuts Not Reportable 04/01/19 05:01 Hypogranular Neuts Not Reportable 04/01/19 05:01 Smudge Cells Not Reportable 04/01/19 05:01 Toxic Granulation Not Reportable 04/01/19 05:01 Toxic Vacuolation Not Reportable 04/01/19 05:01 Dohle Bodies Not Reportable 04/01/19 05:01 Pelger-Huet Anomaly Not Reportable 04/01/19 05:01 Wong Rods Not Reportable 04/01/19 05:01 Platelet Estimate Not Reportable 04/01/19 05:01 Clumped Platelets Not Reportable 04/01/19 05:01 Plt Clumps, EDTA Not Reportable 04/01/19 05:01 Large Platelets Not Reportable 04/01/19 05:01 Giant Platelets Not Reportable 04/01/19 05:01 Platelet Satelliting Not Reportable 04/01/19 05:01 Plt Morphology Comment Not Reportable 04/01/19 05:01 RBC Morphology Normal 04/01/19 05:01 Dimorphic RBCs Not Reportable 04/01/19 05:01 Polychromasia Not Reportable 04/01/19 05:01 Hypochromasia Not Reportable 04/01/19 05:01 Poikilocytosis Not Reportable 04/01/19 05:01 Anisocytosis Not Reportable 04/01/19 05:01 Microcytosis Not Reportable 04/01/19 05:01 Macrocytosis Not Reportable 04/01/19 05:01 Spherocytes Not Reportable 04/01/19 05:01 Pappenheimer Bodies Not Reportable 04/01/19 05:01 Sickle Cells Not Reportable 04/01/19 05:01 Target Cells Not Reportable 04/01/19 05:01 Tear Drop Cells Not Reportable 04/01/19 05:01 Ovalocytes Not Reportable 04/01/19 05:01 Helmet Cells Not Reportable 04/01/19 05:01 Muñoz-Etta Bodies Not Reportable 04/01/19 05:01 Griffith Rings Not Reportable 04/01/19 05:01 [place] Cells Not Reportable 04/01/19 05:01 Bite Cells Not Reportable 04/01/19 05:01 Crenated Cell Not Reportable 04/01/19 05:01 Elliptocytes Not Reportable 04/01/19 05:01 Acanthocytes (Spur) Not Reportable 04/01/19 05:01 Rouleaux Not Reportable 04/01/19 05:01 Hemoglobin C Crystals Not Reportable 04/01/19 05:01 Schistocytes Not Reportable 04/01/19 05:01 Malaria parasites Not Reportable 04/01/19 05:01 Benja Bodies Not Reportable 04/01/19 05:01 Hem Pathologist Commnt No 04/01/19 05:01 PT 13.9 Sec. (12.2-14.9) 04/01/19 17:14 INR 1.10 (0.87-1.13) 04/01/19 17:14 APTT 74.5 Sec. (24.2-36.6) H* 03/29/19 19:20 Fibrinogen 313 mg/dl (211-480) 04/01/19 17:14 D-Dimer 4526.86 ng/mlDDU (0-234) H 04/06/19 00:06 Heparin Anti-Xa, Unfract Negative (Negative) 03/31/19 15:00 POC ABG pH 7.565 (7.35-7.45) H 04/19/19 04:35 ABG pH 7.396 pH Units (7.350-7.450) 04/03/19 05:35 POC ABG pCO2 36.2 (35-45) 04/19/19 04:35 ABG pCO2 32.2 mm Hg 04/03/19 05:35 POC ABG pO2 88 (80-105) 04/19/19 04:35 ABG pO2 97.7 mm Hg (80.0-90.0) H 04/03/19 05:35 POC ABG HCO3 32.8 (22-26 mml/L) 04/19/19 04:35 ABG HCO3 19.3 mmol/L (20.0-26.0) L 04/03/19 05:35 POC ABG Total CO2 34 (23-27mmol/L) 04/19/19 04:35 POC ABG O2 Sat 98 04/19/19 04:35 ABG O2 Saturation 97.6 % (95.0-99.0) 04/03/19 05:35 ABG O2 Content 10.9 (0.0-44) 04/03/19 05:35 POC ABG Base Excess 11 ((-2) - (+3)mmol/L) 04/19/19 04:35 ABG Base Excess -5.0 mmol/L (-2.0-3.0) L 04/03/19 05:35 ABG Hemoglobin 8.0 gm/dl (12.0-16.0) L 04/03/19 05:35 ABG Carboxyhemoglobin 2.1 % (0.0-5.0) 04/03/19 05:35 ABG Methemoglobin 0.5 % (0.0-1.5) 04/03/19 05:35 VBG pH 6.800 (7.320-7.420) L* 03/29/19 19:47 Oxyhemoglobin 95.1 % (95.0-99.0) 04/03/19 05:35 FiO2 40 % 04/19/19 04:35 Sodium 142 mmol/L (137-145) 04/30/19 09:08 Potassium 4.4 mmol/L (3.6-5.0) 04/30/19 09:08 Chloride 100.6 mmol/L (98-107) 04/30/19 09:08 Carbon Dioxide 29 mmol/L (22-30) 04/30/19 09:08 Anion Gap 17 mmol/L 04/30/19 09:08 BUN 25 mg/dL (7-17) H 04/30/19 09:08 Creatinine 0.3 mg/dL (0.7-1.2) L 04/30/19 09:08 Estimated GFR > 60 ml/min 04/30/19 09:08 BUN/Creatinine Ratio 83 % 04/30/19 09:08 Glucose 290 mg/dL (65-100) H 04/30/19 09:08 POC Glucose 227 (70-105) H 05/01/19 11:44 Lactic Acid 3.30 mmol/L (0.7-2.0) H* 03/31/19 07:50 Calcium 9.8 mg/dL (8.4-10.2) 04/30/19 09:08 Phosphorus 4.10 mg/dL (2.5-4.5) 04/09/19 16:25 Magnesium 1.70 mg/dL (1.7-2.3) 04/22/19 03:57 Iron 26 ug/dL (37-170) L 03/31/19 08:20 TIBC 193 mcg/dL (250-450) L 03/31/19 08:20 Total Bilirubin 0.20 mg/dL (0.1-1.2) 04/22/19 03:57 Direct Bilirubin 0.2 mg/dL (0-0.2) 04/02/19 07:48 Indirect Bilirubin 0.5 mg/dL 04/02/19 07:48 AST 60 units/L (5-40) H 04/22/19 03:57 ALT 31 units/L (7-56) 04/22/19 03:57 Alkaline Phosphatase 204 units/L (35-129) H 04/22/19 03:57 Total Creatine Kinase 2465 units/L (30-135) H 03/30/19 05:26 CK-MB (CK-2) 52.7 ng/mL (0.0-4.0) H 03/30/19 05:26 CK-MB (CK-2) Rel Index 2.1 (0-4) 03/30/19 05:26 Troponin T < 0.010 ng/mL (0.00-0.029) 04/06/19 05:20 C-Reactive Protein 2.40 mg/dL (0.00-1.30) H 03/30/19 12:57 Total Protein 7.6 g/dL (6.3-8.2) 04/22/19 03:57 Albumin 3.1 g/dL (3.9-5) L 04/22/19 03:57 Albumin/Globulin Ratio 0.7 % 04/22/19 03:57 Serotonin Release Assay See scanned result 03/31/19 15:00 Vitamin B12 > 2000 pg/mL (211-911) H 03/31/19 08:20 Folate > 20 ng/mL (7.3-26.0) 03/31/19 08:20 HCG, Qual Negative (Negative) 03/29/19 19:20 Urine Color Yellow (Yellow) 04/30/19 Unknown Urine Turbidity Cloudy (Clear) 04/30/19 Unknown Urine pH 7.0 (5.0-7.0) 04/30/19 Unknown Ur Specific [place] 1.020 (1.003-1.030) 04/30/19 Unknown Urine Protein <15 mg/dl mg/dL (Negative) 04/30/19 Unknown Urine Glucose (UA) 150 mg/dL (Negative) 04/30/19 Unknown Urine Ketones Neg mg/dL (Negative) 04/30/19 Unknown Urine Blood Neg (Negative) 04/30/19 Unknown Urine Nitrite Neg (Negative) 04/30/19 Unknown Urine Bilirubin Neg (Negative) 04/30/19 Unknown Urine Urobilinogen < 2.0 mg/dL (<2.0) 04/30/19 Unknown Ur Leukocyte Esterase Mod (Negative) 04/30/19 Unknown Urine WBC (Auto) 17.0 /HPF (0.0-6.0) H 04/30/19 Unknown Urine RBC (Auto) 2.0 /HPF (0.0-6.0) 04/30/19 Unknown U Epithel Cells (Auto) 4.0 /HPF (0-13.0) 04/30/19 Unknown Urine Bacteria (Auto) 1+ /HPF (Negative) 04/30/19 Unknown Amorphous Crystals Few 04/30/19 Unknown Urine Mucus Few /HPF 03/29/19 23:10 Salicylates 0.8 mg/dL (2.8-20.0) L 03/30/19 Unknown Urine Opiates Screen Presumptive negative 03/29/19 23:10 Urine Methadone Screen Presumptive negative 03/29/19 23:10 Acetaminophen < 5.0 ug/mL (10.0-30.0) L 03/30/19 Unknown Ur Barbiturates Screen Presumptive negative 03/29/19 23:10 Ur Phencyclidine Scrn Presumptive negative 03/29/19 23:10 Ur Amphetamines Screen Presumptive negative 03/29/19 23:10 U Benzodiazepines Scrn Presumptive negative 03/29/19 23:10 Urine Cocaine Screen Presumptive negative 03/29/19 23:10 U Marijuana (THC) Screen Presumptive negative 03/29/19 23:10 Drugs of Abuse Note Disclamer 03/29/19 23:10 Heparin-induced Plt Ab Negative (Negative) 03/31/19 15:00 UF Heparin High Dose 0 % Release 03/31/19 15:00 FABIAN UFH Low Dose 0.1 0 % Release 03/31/19 15:00 FABIAN UFH Low Dose 0.5 0 % Release 03/31/19 15:00 Hepatitis A IgM Ab Non-reactive (NonReactive) 03/30/19 Unknown Hep Bs Antigen Non-reactive (Negative) 03/30/19 Unknown Hep B Core IgM Ab Non-reactive (NonReactive) 03/30/19 Unknown Hepatitis C Antibody Non-reactive (NonReactive) 03/30/19 Unknown Miscellaneous Test Flexitest 1 H 03/30/19 14:00 Blood Type O POSITIVE 03/30/19 03:30 Antibody Screen Negative 03/30/19 03:30 Crossmatch See Detail 03/30/19 03:30 Active Medications - Current Medications Current Medications: Generic Name Dose Route Start Last Admin Trade Name Freq PRN Reason Stop Dose Admin Acetaminophen 650 mg 03/29/19 23:34 04/30/19 06:51 Tylenol PO 650 mg Q4H PRN Administration Pain MILD(1-3)/Fever >100.5/WARE Lipase/Protease/Amylase 1 each 04/02/19 11:44 Pancrefranco Daniels 10,500 Unit FEEDTUBE PRN PRN For Clogged Feeding Tube Dextrose 50 ml 04/21/19 12:03 D50w (25gm) Syringe IV PRN PRN Hypoglycemia Enoxaparin Sodium 40 mg 04/14/19 10:00 05/01/19 12:01 Lovenox SUB-Q 40 mg QDAY@1000 ZAMZAM Administration Famotidine 20 mg 04/02/19 10:00 05/01/19 12:01 Pepcid PO 20 mg BID [facility] Administration Fentanyl 25 mcg 04/14/19 14:00 04/29/19 13:00 Duragesic TD 25 mcg Q3D ZAMZAM Administration Glycopyrrolate 1 mg 04/22/19 20:00 05/01/19 13:27 Robinul FEEDTUBE 1 mg TID [facility] Administration Hydrophilic Ointment 1 applic 03/30/19 11:24 04/22/19 08:37 Vaseline Lip Therapy TP 1 applic Q2HR PRN Administration Dry Lips Insulin Glargine 25 units 05/01/19 22:00 Lantus SUB-Q QHS [facility] Insulin Human Lispro 0 unit 04/21/19 13:00 05/01/19 13:19 Humalog SUB-Q 4 unit Q6HR [facility] Administration Protocol Insulin Human Lispro 10 unit 05/01/19 11:30 05/01/19 13:18 Humalog SUB-Q 10 unit AC ZAMZAM Administration Levetiracetam 500 mg 04/03/19 10:00 05/01/19 12:01 Keppra PO 500 mg BID [facility] Administration Metoprolol Tartrate 5 mg 04/14/19 13:06 04/22/19 08:29 Lopressor IV 5 mg Q6HR PRN Administration Tachyarrhythmias Metoprolol Tartrate 25 mg 04/16/19 10:00 05/01/19 12:00 Lopressor PO 25 mg BID [facility] Administration Multi-Ingred Cream/Lotion/Oil/Oint 1 applic 03/30/19 11:24 04/06/19 11:39 Artificial Tears Ophth Oint OU 1 applic Q4HR PRN Administration Dry Eye(s) Ondansetron HCl 4 mg 03/29/19 23:34 Zofran IV Q8H PRN Nausea And Vomiting Scopolamine 1 each 04/17/19 12:00 04/29/19 12:58 Transderm-Scop TD 1 each Q3D ZAMZAM Administration Simple Syrup 15 ml 04/02/19 11:44 04/24/19 06:02 Simple Syrup FEEDTUBE 15 ml PRN PRN Administration Hypoglycemia Simple Syrup 30 ml 04/02/19 11:44 Simple Syrup FEEDTUBE PRN PRN Hypoglycemia Sodium Bicarbonate 325 mg 04/02/19 11:44 Sodium Bicarbonate FEEDTUBE PRN PRN For Clogged Feeding Tube Sodium Chloride 10 ml 03/29/19 23:34 04/22/19 08:29 Sodium Chloride Flush Syringe 10 Ml IV 10 ml PRN PRN Administration LINE FLUSH Nutrition/Malnutrition Assess - Dietary Evaluation Nutrition/Malnutrition Findings: Nutrition Notes Start: 03/30/19 13:14 Freq: Status: Active Protocol: Document 04/25/19 09:43 RS (Rec: 04/25/19 10:30 RS [id number]) Co-Sign 04/25/19 09:43 NHALL Nutrition Notes Initial or Follow up Reassessment Current Diagnosis Acute Kidney Injury,Diabetes, Sepsis,Respiratory Failure Other Pertinent Diagnosis s/p trach & PEG, s/p cardiac arrest, DKA, ARF, Shock liver Current Diet Glucerna 1.2 at 50 ml/hr Labs/Tests POC glu 127 Pertinent Medications Reviewed Height 5 ft Weight 40.1 kg [place] Body Weight (kg) 45.45 BMI 17.2 Subjective/Other Information Glucerna running at 50 ml/hr via PEG. Tech reports pt is tolerating TF. Percent of energy/protein needs met: 100%/100% Burn Absent Trauma Absent #1 Nutrition Diagnosis Inadequate oral intake Diagnosis Progress(for reassessment Continues documentation) Is patient on ventilator? Yes Is Patient Ambulatory and/or Out of Bed No [facility] [phone] Kcal/Kg value to use for calculation 35 Approximate Energy Requirements Using 1404 kcal/Kg Calculation Used for Recommendations [facility] Additional Notes Protein: 1.2-1.5g/k-60g/ day Fluids: 1ml/kcal Nutrition Intervention Change Diet Order: Continue TF Nutrition Support: Glucerna 1.2 at 50ml/hr with 80ml water flush q4h. Kcal 1,440 Protein (gm) 72 Fluid (mL) 966 Goal #1 Meet at least 75% of energy and protein needs Follow-Up By: 05/02/19 Additional Comments F/U for stable TF rate and wt
[2019-05-01] MEDS: ROCEPHIN/NS 1 GM/50 ML 1 GM/50 ML BAG IV SCH (15:21)
[2019-05-01] MEDS: LANTUS SUB-Q SCH (23:40)
[2019-05-02] MEDS: HumaLOG SUB-Q SCH ×7 (00:05→16:30)
[2019-05-02 07:35] LABS: Amorphous Crystals,Urine Few; Bacteria,Urine 1+ /HPF (Negative); Bilirubin,Urine NEG (Negative); Blood,Urine NEG (Negative); Color,Urine Yellow (Yellow); Mucus,Urine FEW /HPF; Protein,Urine <15 mg/dL mg/dL (Negative); Urobilinogen,Urine < 2.0 mg/dL (<2.0)
--- NOTE | 2019-05-02 10:20 | Progress Note ---
Assessment and Plan Assessment and plan: Patient is a 29 year old woman with a history of diabetes was brought to the emergency room following a cardiac arrest. Her last well-known time was 10:30 in the morning of presentation, she was traveling with a friend, she was unresponsive in the back seat. EMS was called, CPR was started and continued here in the emergency room. Patient was intubated in the ER, noted hypotensive started on dobutamine, epinephrine and Levophed drip, given IV fluids, found to be in DKA with BG ~2200, several metabolic derangements - placed on insulin drip and admitted to ICU. BP improved and she was weaned off pressors. Pt off pressors and extubated. Transferred to floor awaiting placement Uncontrolled DM type 1 with hyperglycemia - cont. basal insulin Lantus - cont. SSI - Blood sugar is uncontrolled and increase Lantus and add 10 units of Humalog before meals Acute respiratory failure s/p intubated, off vent - s/p trach and peg on 5 L of oxygen - Tracheostomy re-adjusted on 04/17/19 - on vent, cont nebs, - s/p Trach - Pulm following - Aspiration precautions - VAP bundle Acute anoxic encephalopathy, POA - from cardiac arrest - MR concerning for anoxic Brain injury Cardiac arrest s/p resuscitation - likely 2/2 severe hyperglycemia - preserved EF on 2D echo Generalized Anasacara -Given a dose of Bumex s/p DKA, severe Shock hypotensive +/- sepsis - resolved Now off pressors. Was on vasopressin, Levophed, Phenylephrine Sepsis with possible aspiration PNA - evident on CXR on admission with left sided infiltrates - Competed abx - Abx discontinued following notation that no evidence of liver lesion not consistent with infection per ID - Leucocytosis and thrombocytosis are likely reactive from hepatic subcapsular hematoma UTI, Patient had low-grade temp - No fever today -UA suggestive of UTI -Urine culture showed enterococcus species -Patient started on Rocephin on 05/01/19 Head lice - multiple dosing of Permethin given, resolved Acute renal failure, likely vasomotor nephropathy - resolved Anemia, acute on chronic - no sign of blood loss - s/p 2 Units PRBC transfused Hyperkalemia, resolved with fluid and insulin Hypernatremia Resolved hypokalemia, resolved Shock liver with elevated LFT and Coagulopathy - due to cardiac arrest and hypotension - cont to monitor Liver lesion ID Physician following Discontinued abx, not consistent with infection as noted above Hypermagnesemia - monitor levels as needed Hyperphosphatemia -cont to monitor, improved Stage 1 sacral ulcer, poa - upper ext blisters - pressure ulcer prevention strategies - wound care VTE Prophylaxis with Lovenox Poor prognosis DNR status Disposition: continue inpatient care, await placement in [place], [place] senior clinical data manager in contact with the family Hospice transfer History Interval history: Patient was seen and evaluated during morning rounds as a bedside Patient open her eyes Patient didn't have any fever overnight Hospitalist Physical - Physical exam Narrative exam: Patient is on 5 L of oxygen through the trach. The patient appeared well nourished and normally developed. Vital signs as documented. Head exam is unremarkable. No scleral icterus . Neck is without jugular venous distension, thyromegaly, or carotid bruits. Lungs are clear to auscultation. Cardiac exam reveals regular rate and Rhythm. Abdominal exam reveals normal bowel sounds. Extremities are nonedematous and both femoral and pedal pulses are normal. OFFICE ENGINEER: Patient open her eyes but doesn't follow commands. - Constitutional Vitals: Temp Pulse Resp BP Pulse Ox 98.7 F 116 H 18 118/78 93 05/02/19 04:25 05/02/19 04:25 05/02/19 04:25 05/02/19 04:25 05/02/19 09:40 General appearance: Present: other (intubated) Results - Labs CBC & Chem 7: 04/30/19 09:08 04/30/19 09:08 Labs: Laboratory Last Values WBC 7.3 K/mm3 (4.5-11.0) 04/30/19 09:08 RBC 3.48 M/mm3 (3.65-5.03) L 04/30/19 09:08 Hgb 11.2 gm/dl (10.1-14.3) 04/30/19 09:08 Hct 33.5 % (30.3-42.9) 04/30/19 09:08 MCV 96 fl (79-97) 04/30/19 09:08 MCH 32 pg (28-32) 04/30/19 09:08 MCHC 34 % (30-34) 04/30/19 09:08 RDW 15.9 % (13.2-15.2) H 04/30/19 09:08 Plt Count 407 K/mm3 (140-440) 04/30/19 09:08 Lymph % (Auto) 18.5 % (13.4-35.0) 04/30/19 09:08 [place] % (Auto) 5.2 % (0.0-7.3) 04/30/19 09:08 Eos % (Auto) 2.0 % (0.0-4.3) 04/30/19 09:08 Baso % (Auto) 0.6 % (0.0-1.8) 04/30/19 09:08 Lymph # 1.3 K/mm3 (1.2-5.4) 04/30/19 09:08 [place] # 0.4 K/mm3 (0.0-0.8) 04/30/19 09:08 Eos # 0.1 K/mm3 (0.0-0.4) 04/30/19 09:08 Baso # 0.0 K/mm3 (0.0-0.1) 04/30/19 09:08 Add Manual Diff Complete 04/01/19 05:01 Total Counted 100 04/01/19 05:01 Seg Neutrophils % 73.7 % (40.0-70.0) H 04/30/19 09:08 Seg Neuts % (Manual) 71.0 % (40.0-70.0) H 04/01/19 05:01 Band Neutrophils % 0 % 04/01/19 05:01 Lymphocytes % (Manual) 20.0 % (13.4-35.0) 04/01/19 05:01 Reactive Lymphs % (Man) 0 % 04/01/19 05:01 Monocytes % (Manual) 7.0 % (0.0-7.3) 04/01/19 05:01 Eosinophils % (Manual) 2.0 % (0.0-4.3) 04/01/19 05:01 Basophils % (Manual) 0 % (0.0-1.8) 04/01/19 05:01 Metamyelocytes % 0 % 04/01/19 05:01 Myelocytes % 0 % 04/01/19 05:01 Promyelocytes % 0 % 04/01/19 05:01 Blast Cells % 0 % 04/01/19 05:01 Nucleated RBC % Not Reportable 04/01/19 05:01 Seg Neutrophils # 5.4 K/mm3 (1.8-7.7) 04/30/19 09:08 Seg Neutrophils # Man 4.8 K/mm3 (1.8-7.7) 04/01/19 05:01 Band Neutrophils # 0.0 K/mm3 04/01/19 05:01 Lymphocytes # (Manual) 1.4 K/mm3 (1.2-5.4) 04/01/19 05:01 Abs React Lymphs (Man) 0.0 K/mm3 04/01/19 05:01 Monocytes # (Manual) 0.5 K/mm3 (0.0-0.8) 04/01/19 05:01 Eosinophils # (Manual) 0.1 K/mm3 (0.0-0.4) 04/01/19 05:01 Basophils # (Manual) 0.0 K/mm3 (0.0-0.1) 04/01/19 05:01 Metamyelocytes # 0.0 K/mm3 04/01/19 05:01 Myelocytes # 0.0 K/mm3 04/01/19 05:01 Promyelocytes # 0.0 K/mm3 04/01/19 05:01 Blast Cells # 0.0 K/mm3 04/01/19 05:01 WBC Morphology Not Reportable 04/01/19 05:01 Hypersegmented Neuts Not Reportable 04/01/19 05:01 Hyposegmented Neuts Not Reportable 04/01/19 05:01 Hypogranular Neuts Not Reportable 04/01/19 05:01 Smudge Cells Not Reportable 04/01/19 05:01 Toxic Granulation Not Reportable 04/01/19 05:01 Toxic Vacuolation Not Reportable 04/01/19 05:01 Dohle Bodies Not Reportable 04/01/19 05:01 Pelger-Huet Anomaly Not Reportable 04/01/19 05:01 Wong Rods Not Reportable 04/01/19 05:01 Platelet Estimate Not Reportable 04/01/19 05:01 Clumped Platelets Not Reportable 04/01/19 05:01 Plt Clumps, EDTA Not Reportable 04/01/19 05:01 Large Platelets Not Reportable 04/01/19 05:01 Giant Platelets Not Reportable 04/01/19 05:01 Platelet Satelliting Not Reportable 04/01/19 05:01 Plt Morphology Comment Not Reportable 04/01/19 05:01 RBC Morphology Normal 04/01/19 05:01 Dimorphic RBCs Not Reportable 04/01/19 05:01 Polychromasia Not Reportable 04/01/19 05:01 Hypochromasia Not Reportable 04/01/19 05:01 Poikilocytosis Not Reportable 04/01/19 05:01 Anisocytosis Not Reportable 04/01/19 05:01 Microcytosis Not Reportable 04/01/19 05:01 Macrocytosis Not Reportable 04/01/19 05:01 Spherocytes Not Reportable 04/01/19 05:01 Pappenheimer Bodies Not Reportable 04/01/19 05:01 Sickle Cells Not Reportable 04/01/19 05:01 Target Cells Not Reportable 04/01/19 05:01 Tear Drop Cells Not Reportable 04/01/19 05:01 Ovalocytes Not Reportable 04/01/19 05:01 Helmet Cells Not Reportable 04/01/19 05:01 Muñoz-Carnation Bodies Not Reportable 04/01/19 05:01 [place] Rings Not Reportable 04/01/19 05:01 Farrell Cells Not Reportable 04/01/19 05:01 Bite Cells Not Reportable 04/01/19 05:01 Crenated Cell Not Reportable 04/01/19 05:01 Elliptocytes Not Reportable 04/01/19 05:01 Acanthocytes (Spur) Not Reportable 04/01/19 05:01 Rouleaux Not Reportable 04/01/19 05:01 Hemoglobin C Crystals Not Reportable 04/01/19 05:01 Schistocytes Not Reportable 04/01/19 05:01 Malaria parasites Not Reportable 04/01/19 05:01 Benja Bodies Not Reportable 04/01/19 05:01 Hem Pathologist Commnt No 04/01/19 05:01 PT 13.9 Sec. (12.2-14.9) 04/01/19 17:14 INR 1.10 (0.87-1.13) 04/01/19 17:14 APTT 74.5 Sec. (24.2-36.6) H* 03/29/19 19:20 Fibrinogen 313 mg/dl (211-480) 04/01/19 17:14 D-Dimer 4526.86 ng/mlDDU (0-234) H 04/06/19 00:06 Heparin Anti-Xa, Unfract Negative (Negative) 03/31/19 15:00 POC ABG pH 7.565 (7.35-7.45) H 04/19/19 04:35 ABG pH 7.396 pH Units (7.350-7.450) 04/03/19 05:35 POC ABG pCO2 36.2 (35-45) 04/19/19 04:35 ABG pCO2 32.2 mm Hg 04/03/19 05:35 POC ABG pO2 88 (80-105) 04/19/19 04:35 ABG pO2 97.7 mm Hg (80.0-90.0) H 04/03/19 05:35 POC ABG HCO3 32.8 (22-26 mml/L) 04/19/19 04:35 ABG HCO3 19.3 mmol/L (20.0-26.0) L 04/03/19 05:35 POC ABG Total CO2 34 (23-27mmol/L) 04/19/19 04:35 POC ABG O2 Sat 98 04/19/19 04:35 ABG O2 Saturation 97.6 % (95.0-99.0) 04/03/19 05:35 ABG O2 Content 10.9 (0.0-44) 04/03/19 05:35 POC ABG Base Excess 11 ((-2) - (+3)mmol/L) 04/19/19 04:35 ABG Base Excess -5.0 mmol/L (-2.0-3.0) L 04/03/19 05:35 ABG Hemoglobin 8.0 gm/dl (12.0-16.0) L 04/03/19 05:35 ABG Carboxyhemoglobin 2.1 % (0.0-5.0) 04/03/19 05:35 ABG Methemoglobin 0.5 % (0.0-1.5) 04/03/19 05:35 VBG pH 6.800 (7.320-7.420) L* 03/29/19 19:47 Oxyhemoglobin 95.1 % (95.0-99.0) 04/03/19 05:35 FiO2 40 % 04/19/19 04:35 Sodium 142 mmol/L (137-145) 04/30/19 09:08 Potassium 4.4 mmol/L (3.6-5.0) 04/30/19 09:08 Chloride 100.6 mmol/L (98-107) 04/30/19 09:08 Carbon Dioxide 29 mmol/L (22-30) 04/30/19 09:08 Anion Gap 17 mmol/L 04/30/19 09:08 BUN 25 mg/dL (7-17) H 04/30/19 09:08 Creatinine 0.3 mg/dL (0.7-1.2) L 04/30/19 09:08 Estimated GFR > 60 ml/min 04/30/19 09:08 BUN/Creatinine Ratio 83 % 04/30/19 09:08 Glucose 290 mg/dL (65-100) H 04/30/19 09:08 POC Glucose 280 (70-105) H 05/02/19 05:51 Lactic Acid 3.30 mmol/L (0.7-2.0) H* 03/31/19 07:50 Calcium 9.8 mg/dL (8.4-10.2) 04/30/19 09:08 Phosphorus 4.10 mg/dL (2.5-4.5) 04/09/19 16:25 Magnesium 1.70 mg/dL (1.7-2.3) 04/22/19 03:57 Iron 26 ug/dL (37-170) L 03/31/19 08:20 TIBC 193 mcg/dL (250-450) L 03/31/19 08:20 Total Bilirubin 0.20 mg/dL (0.1-1.2) 04/22/19 03:57 Direct Bilirubin 0.2 mg/dL (0-0.2) 04/02/19 07:48 Indirect Bilirubin 0.5 mg/dL 04/02/19 07:48 AST 60 units/L (5-40) H 04/22/19 03:57 ALT 31 units/L (7-56) 04/22/19 03:57 Alkaline Phosphatase 204 units/L (35-129) H 04/22/19 03:57 Total Creatine Kinase 2465 units/L (30-135) H 03/30/19 05:26 CK-MB (CK-2) 52.7 ng/mL (0.0-4.0) H 03/30/19 05:26 CK-MB (CK-2) Rel Index 2.1 (0-4) 03/30/19 05:26 Troponin T < 0.010 ng/mL (0.00-0.029) 04/06/19 05:20 C-Reactive Protein 2.40 mg/dL (0.00-1.30) H 03/30/19 12:57 Total Protein 7.6 g/dL (6.3-8.2) 04/22/19 03:57 Albumin 3.1 g/dL (3.9-5) L 04/22/19 03:57 Albumin/Globulin Ratio 0.7 % 04/22/19 03:57 Serotonin Release Assay See scanned result 03/31/19 15:00 Vitamin B12 > 2000 pg/mL (211-911) H 03/31/19 08:20 Folate > 20 ng/mL (7.3-26.0) 03/31/19 08:20 HCG, Qual Negative (Negative) 03/29/19 19:20 Urine Color Yellow (Yellow) 05/02/19 07:08 Urine Turbidity Slightly-cloudy (Clear) 05/02/19 07:08 Urine pH 6.0 (5.0-7.0) 05/02/19 07:08 Ur Specific Ernest 1.020 (1.003-1.030) 05/02/19 07:08 Urine Protein <15 mg/dl mg/dL (Negative) 05/02/19 07:08 Urine Glucose (UA) >=500 mg/dL (Negative) 05/02/19 07:08 Urine Ketones Neg mg/dL (Negative) 05/02/19 07:08 Urine Blood Neg (Negative) 05/02/19 07:08 Urine Nitrite Neg (Negative) 05/02/19 07:08 Urine Bilirubin Neg (Negative) 05/02/19 07:08 Urine Urobilinogen < 2.0 mg/dL (<2.0) 05/02/19 07:08 Ur Leukocyte Esterase Neg (Negative) 05/02/19 07:08 Urine WBC (Auto) 6.0 /HPF (0.0-6.0) 05/02/19 07:08 Urine RBC (Auto) 1.0 /HPF (0.0-6.0) 05/02/19 07:08 U Epithel Cells (Auto) 4.0 /HPF (0-13.0) 04/30/19 Unknown Urine Bacteria (Auto) 1+ /HPF (Negative) 05/02/19 07:08 Amorphous Crystals Few 05/02/19 07:08 Urine Mucus Few /HPF 05/02/19 07:08 Salicylates 0.8 mg/dL (2.8-20.0) L 03/30/19 Unknown Urine Opiates Screen Presumptive negative 03/29/19 23:10 Urine Methadone Screen Presumptive negative 03/29/19 23:10 Acetaminophen < 5.0 ug/mL (10.0-30.0) L 03/30/19 Unknown Ur Barbiturates Screen Presumptive negative 03/29/19 23:10 Ur Phencyclidine Scrn Presumptive negative 03/29/19 23:10 Ur Amphetamines Screen Presumptive negative 03/29/19 23:10 U Benzodiazepines Scrn Presumptive negative 03/29/19 23:10 Urine Cocaine Screen Presumptive negative 03/29/19 23:10 U Marijuana (THC) Screen Presumptive negative 03/29/19 23:10 Drugs of Abuse Note Disclamer 03/29/19 23:10 Heparin-induced Plt Ab Negative (Negative) 03/31/19 15:00 UF Heparin High Dose 0 % Release 03/31/19 15:00 FABIAN UFH Low Dose 0.1 0 % Release 03/31/19 15:00 FABIAN UFH Low Dose 0.5 0 % Release 03/31/19 15:00 Hepatitis A IgM Ab Non-reactive (NonReactive) 03/30/19 Unknown Hep Bs Antigen Non-reactive (Negative) 03/30/19 Unknown Hep B Core IgM Ab Non-reactive (NonReactive) 03/30/19 Unknown Hepatitis C Antibody Non-reactive (NonReactive) 03/30/19 Unknown Miscellaneous Test Flexitest 1 H 03/30/19 14:00 Blood Type O POSITIVE 03/30/19 03:30 Antibody Screen Negative 03/30/19 03:30 Crossmatch See Detail 03/30/19 03:30 Active Medications - Current Medications Current Medications: Generic Name Dose Route Start Last Admin Trade Name Freq PRN Reason Stop Dose Admin Acetaminophen 650 mg 03/29/19 23:34 04/30/19 06:51 Tylenol PO 650 mg Q4H PRN Administration Pain MILD(1-3)/Fever >100.5/WARE Lipase/Protease/Amylase 1 each 04/02/19 11:44 Pancreazaaliyah Daniels 10,500 Unit FEEDTUBE PRN PRN For Clogged Feeding Tube Dextrose 50 ml 04/21/19 12:03 D50w (25gm) Syringe IV PRN PRN Hypoglycemia Enoxaparin Sodium 40 mg 04/14/19 10:00 05/01/19 12:01 Lovenox SUB-Q 40 mg QDAY@1000 ZAMZAM Administration Famotidine 20 mg 04/02/19 10:00 05/01/19 21:03 Pepcid PO 20 mg BID ZAMZAM Administration Fentanyl 25 mcg 04/14/19 14:00 04/29/19 13:00 Duragesic TD 25 mcg Q3D ZAMZAM Administration Glycopyrrolate 1 mg 04/22/19 20:00 05/01/19 21:03 Robinul FEEDTUBE 1 mg TID ZAMZAM Administration Hydrophilic Ointment 1 applic 03/30/19 11:24 04/22/19 08:37 Vaseline Lip Therapy TP 1 applic Q2HR PRN Administration Dry Lips Ceftriaxone Sodium 1 gm in 50 mls @ 100 mls/hr 05/01/19 14:00 05/01/19 15:21 Rocephin/Ns 1 Gm/50 Ml IV 100 mls/hr Q24HR ZAMZAM Administration Protocol Insulin Glargine 25 units 05/01/19 22:00 05/01/19 23:40 Lantus SUB-Q 25 units QHS ZAMZAM Administration Insulin Human Lispro 0 unit 04/21/19 13:00 05/02/19 07:01 Humalog SUB-Q 6 unit Q6HR ZAMZAM Administration Protocol Insulin Human Lispro 10 unit 05/01/19 11:30 05/01/19 18:09 Humalog SUB-Q 10 unit AC ZAMZAM Administration Levetiracetam 500 mg 04/03/19 10:00 05/01/19 21:03 Keppra PO 500 mg BID ZAMZAM Administration Metoprolol Tartrate 5 mg 04/14/19 13:06 04/22/19 08:29 Lopressor IV 5 mg Q6HR PRN Administration Tachyarrhythmias Metoprolol Tartrate 25 mg 04/16/19 10:00 05/01/19 21:03 Lopressor PO 25 mg BID ZAMZAM Administration Multi-Ingred Cream/Lotion/Oil/Oint 1 applic 03/30/19 11:24 04/06/19 11:39 Artificial Tears Ophth Oint OU 1 applic Q4HR PRN Administration Dry Eye(s) Ondansetron HCl 4 mg 03/29/19 23:34 Zofran IV Q8H PRN Nausea And Vomiting Scopolamine 1 each 04/17/19 12:00 04/29/19 12:58 Transderm-Scop TD 1 each Q3D ZAMZAM Administration Simple Syrup 15 ml 04/02/19 11:44 04/24/19 06:02 Simple Syrup FEEDTUBE 15 ml PRN PRN Administration Hypoglycemia Simple Syrup 30 ml 04/02/19 11:44 Simple Syrup FEEDTUBE PRN PRN Hypoglycemia Sodium Bicarbonate 325 mg 04/02/19 11:44 Sodium Bicarbonate FEEDTUBE PRN PRN For Clogged Feeding Tube Sodium Chloride 10 ml 03/29/19 23:34 04/22/19 08:29 Sodium Chloride Flush Syringe 10 Ml IV 10 ml PRN PRN Administration LINE FLUSH Nutrition/Malnutrition Assess - Dietary Evaluation Nutrition/Malnutrition Findings: Nutrition Notes Start: 03/30/19 13:14 Freq: Status: Active Protocol: Document 04/25/19 09:43 RS (Rec: 04/25/19 10:30 RS [id number]) Co-Sign 04/25/19 09:43 NHALL Nutrition Notes Initial or Follow up Reassessment Current Diagnosis Acute Kidney Injury,Diabetes, Sepsis,Respiratory Failure Other Pertinent Diagnosis s/p trach & PEG, s/p cardiac arrest, DKA, ARF, Shock liver Current Diet Glucerna 1.2 at 50 ml/hr Labs/Tests POC glu 127 Pertinent Medications Reviewed Height 5 ft Weight 40.1 kg [place] Body Weight (kg) 45.45 BMI 17.2 Subjective/Other Information Glucerna running at 50 ml/hr via PEG. Tech reports pt is tolerating TF. Percent of energy/protein needs met: 100%/100% Burn Absent Trauma Absent #1 Nutrition Diagnosis Inadequate oral intake Diagnosis Progress(for reassessment Continues documentation) Is patient on ventilator? Yes Is Patient Ambulatory and/or Out of Bed No REE-([place]-St. Jeor-confined to bed) 1247.496 Kcal/Kg value to use for calculation 35 Approximate Energy Requirements Using 1404 kcal/Kg Calculation Used for Recommendations [facility] Additional Notes Protein: 1.2-1.5g/k-60g/ day Fluids: 1ml/kcal Nutrition Intervention Change Diet Order: Continue TF Nutrition Support: Glucerna 1.2 at 50ml/hr with 80ml water flush q4h. Kcal 1,440 Protein (gm) 72 Fluid (mL) 966 Goal #1 Meet at least 75% of energy and protein needs Follow-Up By: 05/02/19 Additional Comments F/U for stable TF rate and wt
[2019-05-02] MEDS: ROCEPHIN/NS 1 GM/50 ML 1 GM/50 ML BAG IV SCH (11:55)
[2019-05-02] MEDS: ENOXAPARIN SUB-Q SCH (11:56)
[2019-05-02] MEDS: ROBINUL FEEDTUBE SCH ×3 (11:56→16:27)
[2019-05-02] MEDS: KEPPRA PO SCH ×2 (11:56→23:04)
[2019-05-02] MEDS: PEPCID PO SCH ×2 (11:56→23:15)
[2019-05-02] MEDS: METOPROLOL PO SCH ×2 (12:38→23:15)
--- NOTE | 2019-05-02 13:08 | Progress Note ---
Assessment and Plan Patients condition same.Patient resting on T tube. Patient more awake. Not following the commands. No acute respiratory distress.. Patient is on T tube, FIO2 35%. O2 saturation 97%.Patient having a low grade temp today and has no leukocytosis. Patient waiting for placement. - Patient Problems (1) Cardiac arrest Current Visit: Yes Status: Acute Plan to address problem: Patient resuscitated. Presently resting on T tube. No acute respiratory distress.; (2) Status post tracheostomy Current Visit: Yes Status: Acute Plan to address problem: Respiratory suctioning. Recommend trach care as per respiratory therapy protocol. (3) DKA, type 1 Current Visit: Yes Status: Acute Qualifiers: Diabetes mellitus complication detail: with coma Qualified Code(s): E10.11 - Type 1 diabetes mellitus with ketoacidosis with coma Plan to address problem: Management as per primary care. (4) Hypotension Current Visit: Yes Status: Acute Qualifiers: Hypotension type: unspecified hypotension type Qualified Code(s): I95.9 - Hypotension, unspecified Plan to address problem: Improved. Recent blood pressure 136/90 (5) Renal failure Current Visit: Yes Status: Acute Qualifiers: Renal failure chronicity: acute Acute renal failure type: unspecified Qualified Code(s): N17.9 - Acute kidney failure, unspecified Plan to address problem: Improved. Management as per primary care and nephrology . Subjective Date of service: 05/02/19 Principal diagnosis: Ac Hypoxemic Resp Failure; DKA; Severe sepsis with shock; ANGELICA Interval history: Patients condition same.Patient resting on T tube. Patient more awake. Not following the commands. No acute respiratory distress.. Patient is on T tube, FIO2 35%. O2 saturation 97%.Patient having a low grade temp today and has no leukocytosis. Patient waiting for placement. Objective Vital Signs - 12hr 05/02/19 05/02/19 05/02/19 04:00 04:25 08:00 Temperature 98.7 F Pulse Rate 116 H Respiratory 18 Rate Blood Pressure 118/78 O2 Sat by Pulse 93 Oximetry O2 Sat by Pulse 99 128 H Oximetry [ Assessment] 05/02/19 05/02/19 09:40 10:49 Temperature Pulse Rate Respiratory Rate Blood Pressure O2 Sat by Pulse 93 94 Oximetry O2 Sat by Pulse Oximetry [ Assessment] Constitutional: no acute distress, other (young CF normocephalic and atraumatic s/p tracheostomy to ATP, copious secretions. Opening eyes. Not following commands.) Eyes: non-icteric ENT: oropharynx moist Neck: supple, no lymphadenopathy, no JVD, other (midline trach tube) Effort: mildly labored Ascultation: Bilateral: diminished breath sounds, rhonchi Percussion: Bilateral: not dull Cardiovascular: regular rate and rhythm Gastrointestinal: normoactive bowel sounds, soft, non-tender, non-distended, other (PEG tube) Integumentary: normal Extremities: no cyanosis, no edema, pink and warm, pulses normal, no ischemia or petechiae Neurologic: unable to assess (awake, alert, not obeying commands) Psychiatric: other (unable to assess) CBC and BMP: 04/30/19 09:08 04/30/19 09:08 ABG, PT/INR, D-dimer: ABG POC ABG pH 7.565 (7.35-7.45) H 04/19/19 04:35 ABG pH 7.396 pH Units (7.350-7.450) 04/03/19 05:35 POC ABG pCO2 36.2 (35-45) 04/19/19 04:35 ABG pCO2 32.2 mm Hg 04/03/19 05:35 POC ABG pO2 88 (80-105) 04/19/19 04:35 ABG pO2 97.7 mm Hg (80.0-90.0) H 04/03/19 05:35 POC ABG HCO3 32.8 (22-26 mml/L) 04/19/19 04:35 POC ABG Total CO2 34 (23-27mmol/L) 04/19/19 04:35 POC ABG O2 Sat 98 04/19/19 04:35 ABG O2 Saturation 97.6 % (95.0-99.0) 04/03/19 05:35 PT/INR, D-dimer PT 13.9 Sec. (12.2-14.9) 04/01/19 17:14 INR 1.10 (0.87-1.13) 04/01/19 17:14 D-Dimer 4526.86 ng/mlDDU (0-234) H 04/06/19 00:06 Abnormal lab findings: Abnormal Labs 03/29/19 03/29/19 03/29/19 19:11 19:20 19:20 WBC 26.7 H RBC 2.52 L Hgb 8.1 L Hct MCV 148 H MCH MCHC 22 L RDW 18.5 H Plt Count Lymph % (Auto) [place] % (Auto) Lymph # Seg Neutrophils % Seg Neuts % (Manual) 82.0 H Lymphocytes % (Manual) 7.0 L Nucleated RBC % Seg Neutrophils # Seg Neutrophils # Man 21.9 H Lymphocytes # (Manual) Monocytes # (Manual) 1.9 H PT 21.8 H INR 1.95 H APTT 74.5 H* D-Dimer POC ABG pH ABG pH POC ABG pCO2 POC ABG pO2 ABG pO2 ABG HCO3 ABG O2 Saturation ABG Base Excess ABG Hemoglobin VBG pH Oxyhemoglobin Sodium Potassium Chloride Carbon Dioxide BUN Creatinine Glucose POC Glucose > 500 H Lactic Acid Calcium Phosphorus Magnesium Iron TIBC Direct Bilirubin AST ALT Alkaline Phosphatase Total Creatine Kinase CK-MB (CK-2) C-Reactive Protein Total Protein Albumin Vitamin B12 Urine WBC (Auto) Salicylates Acetaminophen Miscellaneous Test Crossmatch 03/29/19 03/29/19 03/29/19 19:20 19:47 20:59 WBC RBC Hgb Hct MCV MCH MCHC RDW Plt Count Lymph % (Auto) [place] % (Auto) Lymph # Seg Neutrophils % Seg Neuts % (Manual) Lymphocytes % (Manual) Nucleated RBC % Seg Neutrophils # Seg Neutrophils # Man Lymphocytes # (Manual) Monocytes # (Manual) PT INR APTT D-Dimer POC ABG pH 6.892 L ABG pH POC ABG pCO2 POC ABG pO2 236 H ABG pO2 ABG HCO3 ABG O2 Saturation ABG Base Excess ABG Hemoglobin VBG pH 6.800 L* Oxyhemoglobin Sodium 118 L* Potassium 9.0 H* Chloride 64.5 L Carbon Dioxide 7 L* BUN 53 H Creatinine 2.1 H Glucose 2196 H* POC Glucose Lactic Acid Calcium 12.4 H* Phosphorus Magnesium Iron TIBC Direct Bilirubin AST 3900 H ALT 1034 H Alkaline Phosphatase 316 H Total Creatine Kinase CK-MB (CK-2) C-Reactive Protein Total Protein 5.1 L Albumin 2.8 L Vitamin B12 Urine WBC (Auto) Salicylates Acetaminophen Miscellaneous Test Crossmatch 03/29/19 03/29/19 03/29/19 22:45 22:45 22:45 WBC RBC Hgb Hct MCV MCH MCHC RDW Plt Count Lymph % (Auto) [place] % (Auto) Lymph # Seg Neutrophils % Seg Neuts % (Manual) Lymphocytes % (Manual) Nucleated RBC % Seg Neutrophils # Seg Neutrophils # Man Lymphocytes # (Manual) Monocytes # (Manual) PT INR APTT D-Dimer POC ABG pH ABG pH POC ABG pCO2 POC ABG pO2 ABG pO2 ABG HCO3 ABG O2 Saturation ABG Base Excess ABG Hemoglobin VBG pH Oxyhemoglobin Sodium 132 L D Potassium 7.0 H* Chloride 84.3 L Carbon Dioxide 3 L* BUN 48 H Creatinine 1.8 H Glucose 1779 H* POC Glucose Lactic Acid Calcium Phosphorus 21.70 H Magnesium 4.70 H Iron TIBC Direct Bilirubin AST ALT Alkaline Phosphatase Total Creatine Kinase 363 H CK-MB (CK-2) C-Reactive Protein Total Protein Albumin Vitamin B12 Urine WBC (Auto) Salicylates Acetaminophen Miscellaneous Test Crossmatch 03/29/19 03/29/19 03/30/19 Unknown Unknown 00:11 WBC RBC Hgb Hct MCV MCH MCHC RDW Plt Count Lymph % (Auto) [place] % (Auto) Lymph # Seg Neutrophils % Seg Neuts % (Manual) Lymphocytes % (Manual) Nucleated RBC % Seg Neutrophils # Seg Neutrophils # Man Lymphocytes # (Manual) Monocytes # (Manual) PT INR APTT D-Dimer POC ABG pH ABG pH POC ABG pCO2 POC ABG pO2 ABG pO2 ABG HCO3 ABG O2 Saturation ABG Base Excess ABG Hemoglobin VBG pH Oxyhemoglobin Sodium 122 L Potassium 7.9 H* 6.4 H* Chloride 75.3 L 89.7 L Carbon Dioxide 3 L* 12 L D BUN 52 H 46 H Creatinine 2.0 H 1.7 H Glucose 2043 H* 1591 H* POC Glucose Lactic Acid Calcium 7.8 L Phosphorus 19.30 H Magnesium 3.90 H Iron TIBC Direct Bilirubin AST ALT Alkaline Phosphatase Total Creatine Kinase CK-MB (CK-2) C-Reactive Protein Total Protein Albumin Vitamin B12 Urine WBC (Auto) Salicylates Acetaminophen Miscellaneous Test Crossmatch 03/30/19 03/30/19 03/30/19 00:11 02:14 02:14 WBC RBC Hgb Hct MCV MCH MCHC RDW Plt Count Lymph % (Auto) [place] % (Auto) Lymph # Seg Neutrophils % Seg Neuts % (Manual) Lymphocytes % (Manual) Nucleated RBC % Seg Neutrophils # Seg Neutrophils # Man Lymphocytes # (Manual) Monocytes # (Manual) PT INR APTT D-Dimer POC ABG pH ABG pH POC ABG pCO2 POC ABG pO2 ABG pO2 ABG HCO3 ABG O2 Saturation ABG Base Excess ABG Hemoglobin VBG pH Oxyhemoglobin Sodium Potassium Chloride Carbon Dioxide 9 L* BUN 45 H Creatinine 1.7 H Glucose 1155 H* POC Glucose Lactic Acid Calcium 7.9 L Phosphorus 10.90 H D 5.30 H D Magnesium 3.10 H 2.90 H Iron TIBC Direct Bilirubin AST ALT Alkaline Phosphatase Total Creatine Kinase CK-MB (CK-2) C-Reactive Protein Total Protein Albumin Vitamin B12 Urine WBC (Auto) Salicylates Acetaminophen Miscellaneous Test Crossmatch 03/30/19 03/30/19 03/30/19 03:15 03:30 04:23 WBC 18.0 H RBC 2.31 L Hgb 7.3 L Hct 23.8 L D MCV 103 H MCH MCHC RDW 17.1 H Plt Count Lymph % (Auto) [place] % (Auto) Lymph # Seg Neutrophils % Seg Neuts % (Manual) 79.0 H Lymphocytes % (Manual) Nucleated RBC % Seg Neutrophils # Seg Neutrophils # Man 14.2 H Lymphocytes # (Manual) Monocytes # (Manual) PT INR APTT D-Dimer POC ABG pH 7.251 L ABG pH POC ABG pCO2 POC ABG pO2 156 H ABG pO2 ABG HCO3 ABG O2 Saturation ABG Base Excess ABG Hemoglobin VBG pH Oxyhemoglobin Sodium Potassium Chloride Carbon Dioxide BUN Creatinine Glucose POC Glucose Lactic Acid Calcium Phosphorus Magnesium Iron TIBC Direct Bilirubin AST ALT Alkaline Phosphatase Total Creatine Kinase CK-MB (CK-2) C-Reactive Protein Total Protein Albumin Vitamin B12 Urine WBC (Auto) Salicylates Acetaminophen Miscellaneous Test Crossmatch See Detail 03/30/19 03/30/19 03/30/19 05:26 05:26 10:38 WBC RBC Hgb Hct MCV MCH MCHC RDW Plt Count Lymph % (Auto) [place] % (Auto) Lymph # Seg Neutrophils % Seg Neuts % (Manual) Lymphocytes % (Manual) Nucleated RBC % Seg Neutrophils # Seg Neutrophils # Man Lymphocytes # (Manual) Monocytes # (Manual) PT INR APTT D-Dimer POC ABG pH ABG pH POC ABG pCO2 POC ABG pO2 ABG pO2 ABG HCO3 ABG O2 Saturation ABG Base Excess ABG Hemoglobin VBG pH Oxyhemoglobin Sodium 158 H D Potassium 3.5 L Chloride 109.3 H Carbon Dioxide 19 L D BUN 40 H Creatinine 1.5 H Glucose 760 H* POC Glucose 380 H Lactic Acid Calcium 7.3 L Phosphorus Magnesium 2.60 H Iron TIBC Direct Bilirubin AST 90873 H ALT 2156 H Alkaline Phosphatase 271 H Total Creatine Kinase 2465 H CK-MB (CK-2) 52.7 H C-Reactive Protein Total Protein 4.5 L Albumin 2.4 L Vitamin B12 Urine WBC (Auto) Salicylates Acetaminophen Miscellaneous Test Crossmatch 03/30/19 03/30/19 03/30/19 11:08 12:25 12:57 WBC RBC Hgb Hct MCV MCH MCHC RDW Plt Count Lymph % (Auto) [place] % (Auto) Lymph # Seg Neutrophils % Seg Neuts % (Manual) Lymphocytes % (Manual) Nucleated RBC % Seg Neutrophils # Seg Neutrophils # Man Lymphocytes # (Manual) Monocytes # (Manual) PT INR APTT D-Dimer POC ABG pH ABG pH POC ABG pCO2 POC ABG pO2 ABG pO2 ABG HCO3 ABG O2 Saturation ABG Base Excess ABG Hemoglobin VBG pH Oxyhemoglobin Sodium 156 H Potassium 3.2 L Chloride 116.4 H Carbon Dioxide 21 L BUN 37 H Creatinine Glucose 162 H POC Glucose 263 H 196 H Lactic Acid Calcium 7.2 L Phosphorus Magnesium Iron TIBC Direct Bilirubin AST ALT Alkaline Phosphatase Total Creatine Kinase CK-MB (CK-2) C-Reactive Protein Total Protein Albumin Vitamin B12 Urine WBC (Auto) Salicylates Acetaminophen Miscellaneous Test Crossmatch 03/30/19 03/30/19 03/30/19 12:57 12:57 12:57 WBC RBC Hgb Hct MCV MCH MCHC RDW Plt Count Lymph % (Auto) [place] % (Auto) Lymph # Seg Neutrophils % Seg Neuts % (Manual) Lymphocytes % (Manual) Nucleated RBC % Seg Neutrophils # Seg Neutrophils # Man Lymphocytes # (Manual) Monocytes # (Manual) PT 21.0 H INR 1.86 H APTT D-Dimer POC ABG pH ABG pH POC ABG pCO2 POC ABG pO2 ABG pO2 ABG HCO3 ABG O2 Saturation ABG Base Excess ABG Hemoglobin VBG pH Oxyhemoglobin Sodium Potassium Chloride Carbon Dioxide BUN Creatinine Glucose POC Glucose Lactic Acid 9.00 H* Calcium Phosphorus Magnesium Iron TIBC Direct Bilirubin AST ALT Alkaline Phosphatase Total Creatine Kinase CK-MB (CK-2) C-Reactive Protein 2.40 H Total Protein Albumin Vitamin B12 Urine WBC (Auto) Salicylates Acetaminophen Miscellaneous Test Crossmatch 03/30/19 03/30/19 03/30/19 13:23 14:00 14:47 WBC RBC Hgb Hct MCV MCH MCHC RDW Plt Count Lymph % (Auto) [place] % (Auto) Lymph # Seg Neutrophils % Seg Neuts % (Manual) Lymphocytes % (Manual) Nucleated RBC % Seg Neutrophils # Seg Neutrophils # Man Lymphocytes # (Manual) Monocytes # (Manual) PT INR APTT D-Dimer POC ABG pH ABG pH POC ABG pCO2 POC ABG pO2 ABG pO2 ABG HCO3 ABG O2 Saturation ABG Base Excess ABG Hemoglobin VBG pH Oxyhemoglobin Sodium Potassium Chloride Carbon Dioxide BUN Creatinine Glucose POC Glucose 176 H 245 H Lactic Acid Calcium Phosphorus Magnesium Iron TIBC Direct Bilirubin AST ALT Alkaline Phosphatase Total Creatine Kinase CK-MB (CK-2) C-Reactive Protein Total Protein Albumin Vitamin B12 Urine WBC (Auto) Salicylates Acetaminophen Miscellaneous Test Flexitest 1 H Crossmatch 03/30/19 03/30/19 03/30/19 16:11 17:11 17:46 WBC RBC Hgb Hct MCV MCH MCHC RDW Plt Count Lymph % (Auto) [place] % (Auto) Lymph # Seg Neutrophils % Seg Neuts % (Manual) Lymphocytes % (Manual) Nucleated RBC % Seg Neutrophils # Seg Neutrophils # Man Lymphocytes # (Manual) Monocytes # (Manual) PT INR APTT D-Dimer POC ABG pH ABG pH POC ABG pCO2 POC ABG pO2 ABG pO2 ABG HCO3 ABG O2 Saturation ABG Base Excess ABG Hemoglobin VBG pH Oxyhemoglobin Sodium Potassium Chloride Carbon Dioxide BUN Creatinine Glucose POC Glucose 181 H 167 H 125 H Lactic Acid Calcium Phosphorus Magnesium Iron TIBC Direct Bilirubin AST ALT Alkaline Phosphatase Total Creatine Kinase CK-MB (CK-2) C-Reactive Protein Total Protein Albumin Vitamin B12 Urine WBC (Auto) Salicylates Acetaminophen Miscellaneous Test Crossmatch 03/30/19 03/30/19 03/30/19 18:59 21:31 22:19 WBC RBC Hgb Hct MCV MCH MCHC RDW Plt Count Lymph % (Auto) [place] % (Auto) Lymph # Seg Neutrophils % Seg Neuts % (Manual) Lymphocytes % (Manual) Nucleated RBC % Seg Neutrophils # Seg Neutrophils # Man Lymphocytes # (Manual) Monocytes # (Manual) PT INR APTT D-Dimer POC ABG pH ABG pH POC ABG pCO2 POC ABG pO2 ABG pO2 ABG HCO3 ABG O2 Saturation ABG Base Excess ABG Hemoglobin VBG pH Oxyhemoglobin Sodium Potassium Chloride Carbon Dioxide BUN Creatinine Glucose POC Glucose 140 H 166 H 115 H Lactic Acid Calcium Phosphorus Magnesium Iron TIBC Direct Bilirubin AST ALT Alkaline Phosphatase Total Creatine Kinase CK-MB (CK-2) C-Reactive Protein Total Protein Albumin Vitamin B12 Urine WBC (Auto) Salicylates Acetaminophen Miscellaneous Test Crossmatch 03/30/19 03/30/19 03/30/19 23:13 Unknown Unknown WBC RBC Hgb Hct MCV MCH MCHC RDW Plt Count Lymph % (Auto) [place] % (Auto) Lymph # Seg Neutrophils % Seg Neuts % (Manual) Lymphocytes % (Manual) Nucleated RBC % Seg Neutrophils # Seg Neutrophils # Man Lymphocytes # (Manual) Monocytes # (Manual) PT INR APTT D-Dimer POC ABG pH ABG pH POC ABG pCO2 POC ABG pO2 ABG pO2 47.8 L ABG HCO3 18.8 L ABG O2 Saturation 83.8 L ABG Base Excess -5.4 L ABG Hemoglobin 6.8 L VBG pH Oxyhemoglobin 81.8 L Sodium 157 H Potassium 3.3 L Chloride 117.9 H Carbon Dioxide 20 L BUN 36 H Creatinine Glucose 150 H POC Glucose 112 H Lactic Acid Calcium 7.2 L Phosphorus Magnesium Iron TIBC Direct Bilirubin AST ALT Alkaline Phosphatase Total Creatine Kinase CK-MB (CK-2) C-Reactive Protein Total Protein Albumin Vitamin B12 Urine WBC (Auto) Salicylates Acetaminophen Miscellaneous Test Crossmatch 03/30/19 03/30/19 03/31/19 Unknown Unknown 00:03 WBC RBC Hgb Hct MCV MCH MCHC RDW Plt Count Lymph % (Auto) [place] % (Auto) Lymph # Seg Neutrophils % Seg Neuts % (Manual) Lymphocytes % (Manual) Nucleated RBC % Seg Neutrophils # Seg Neutrophils # Man Lymphocytes # (Manual) Monocytes # (Manual) PT INR APTT D-Dimer POC ABG pH ABG pH POC ABG pCO2 POC ABG pO2 ABG pO2 ABG HCO3 ABG O2 Saturation ABG Base Excess ABG Hemoglobin VBG pH Oxyhemoglobin Sodium Potassium Chloride Carbon Dioxide BUN Creatinine Glucose POC Glucose 188 H Lactic Acid Calcium Phosphorus Magnesium Iron TIBC Direct Bilirubin AST ALT Alkaline Phosphatase Total Creatine Kinase CK-MB (CK-2) C-Reactive Protein Total Protein Albumin Vitamin B12 Urine WBC (Auto) Salicylates 0.8 L Acetaminophen < 5.0 L Miscellaneous Test Crossmatch 03/31/19 03/31/19 03/31/19 01:18 03:07 03:50 WBC RBC Hgb Hct MCV MCH MCHC RDW Plt Count Lymph % (Auto) [place] % (Auto) Lymph # Seg Neutrophils % Seg Neuts % (Manual) Lymphocytes % (Manual) Nucleated RBC % Seg Neutrophils # Seg Neutrophils # Man Lymphocytes # (Manual) Monocytes # (Manual) PT INR APTT D-Dimer POC ABG pH ABG pH 7.525 H POC ABG pCO2 POC ABG pO2 ABG pO2 178.0 H ABG HCO3 19.5 L ABG O2 Saturation 99.2 H ABG Base Excess -3.1 L ABG Hemoglobin 5.8 L VBG pH Oxyhemoglobin Sodium Potassium Chloride Carbon Dioxide BUN Creatinine Glucose POC Glucose 114 H 107 H Lactic Acid Calcium Phosphorus Magnesium Iron TIBC Direct Bilirubin AST ALT Alkaline Phosphatase Total Creatine Kinase CK-MB (CK-2) C-Reactive Protein Total Protein Albumin Vitamin B12 Urine WBC (Auto) Salicylates Acetaminophen Miscellaneous Test Crossmatch 03/31/19 03/31/19 03/31/19 03:51 03:51 04:05 WBC RBC 1.89 L Hgb 6.1 L Hct 18.2 L* MCV MCH MCHC RDW 17.7 H Plt Count 89 L Lymph % (Auto) [place] % (Auto) Lymph # Seg Neutrophils % Seg Neuts % (Manual) 86.0 H Lymphocytes % (Manual) 10.0 L Nucleated RBC % 1.0 H Seg Neutrophils # Seg Neutrophils # Man Lymphocytes # (Manual) 0.7 L Monocytes # (Manual) PT INR APTT D-Dimer POC ABG pH ABG pH POC ABG pCO2 POC ABG pO2 ABG pO2 ABG HCO3 ABG O2 Saturation ABG Base Excess ABG Hemoglobin VBG pH Oxyhemoglobin Sodium 151 H Potassium 3.2 L Chloride 119.4 H Carbon Dioxide 17 L BUN 35 H Creatinine Glucose 139 H POC Glucose 153 H Lactic Acid Calcium 7.1 L Phosphorus Magnesium Iron TIBC Direct Bilirubin AST ALT Alkaline Phosphatase Total Creatine Kinase CK-MB (CK-2) C-Reactive Protein Total Protein Albumin Vitamin B12 Urine WBC (Auto) Salicylates Acetaminophen Miscellaneous Test Crossmatch 03/31/19 03/31/19 03/31/19 05:05 05:35 06:23 WBC RBC Hgb Hct MCV MCH MCHC RDW Plt Count Lymph % (Auto) [place] % (Auto) Lymph # Seg Neutrophils % Seg Neuts % (Manual) Lymphocytes % (Manual) Nucleated RBC % Seg Neutrophils # Seg Neutrophils # Man Lymphocytes # (Manual) Monocytes # (Manual) PT INR APTT D-Dimer POC ABG pH ABG pH POC ABG pCO2 POC ABG pO2 ABG pO2 ABG HCO3 ABG O2 Saturation ABG Base Excess ABG Hemoglobin VBG pH Oxyhemoglobin Sodium Potassium Chloride Carbon Dioxide BUN Creatinine Glucose POC Glucose 176 H 133 H Lactic Acid 3.20 H* Calcium Phosphorus Magnesium Iron TIBC Direct Bilirubin AST ALT Alkaline Phosphatase Total Creatine Kinase CK-MB (CK-2) C-Reactive Protein Total Protein Albumin Vitamin B12 Urine WBC (Auto) Salicylates Acetaminophen Miscellaneous Test Crossmatch 03/31/19 03/31/19 03/31/19 07:50 07:51 08:20 WBC RBC Hgb Hct MCV MCH MCHC RDW Plt Count Lymph % (Auto) [place] % (Auto) Lymph # Seg Neutrophils % Seg Neuts % (Manual) Lymphocytes % (Manual) Nucleated RBC % Seg Neutrophils # Seg Neutrophils # Man Lymphocytes # (Manual) Monocytes # (Manual) PT INR APTT D-Dimer POC ABG pH ABG pH POC ABG pCO2 POC ABG pO2 ABG pO2 ABG HCO3 ABG O2 Saturation ABG Base Excess ABG Hemoglobin VBG pH Oxyhemoglobin Sodium Potassium Chloride Carbon Dioxide BUN Creatinine Glucose POC Glucose 135 H Lactic Acid 3.30 H* Calcium Phosphorus Magnesium Iron 26 L TIBC 193 L Direct Bilirubin AST ALT Alkaline Phosphatase Total Creatine Kinase CK-MB (CK-2) C-Reactive Protein Total Protein Albumin Vitamin B12 Urine WBC (Auto) Salicylates Acetaminophen Miscellaneous Test Crossmatch 03/31/19 03/31/19 03/31/19 08:20 08:20 09:06 WBC RBC Hgb Hct MCV MCH MCHC RDW Plt Count Lymph % (Auto) [place] % (Auto) Lymph # Seg Neutrophils % Seg Neuts % (Manual) Lymphocytes % (Manual) Nucleated RBC % Seg Neutrophils # Seg Neutrophils # Man Lymphocytes # (Manual) Monocytes # (Manual) PT INR APTT D-Dimer POC ABG pH ABG pH POC ABG pCO2 POC ABG pO2 ABG pO2 ABG HCO3 ABG O2 Saturation ABG Base Excess ABG Hemoglobin VBG pH Oxyhemoglobin Sodium 153 H Potassium 3.0 L Chloride 118.9 H Carbon Dioxide 18 L BUN 37 H Creatinine Glucose 132 H POC Glucose 145 H Lactic Acid Calcium 7.1 L Phosphorus Magnesium Iron TIBC Direct Bilirubin AST ALT Alkaline Phosphatase Total Creatine Kinase CK-MB (CK-2) C-Reactive Protein Total Protein Albumin Vitamin B12 > 2000 H Urine WBC (Auto) Salicylates Acetaminophen Miscellaneous Test Crossmatch 03/31/19 03/31/19 03/31/19 10:47 11:49 13:04 WBC RBC Hgb Hct MCV MCH MCHC RDW Plt Count Lymph % (Auto) [place] % (Auto) Lymph # Seg Neutrophils % Seg Neuts % (Manual) Lymphocytes % (Manual) Nucleated RBC % Seg Neutrophils # Seg Neutrophils # Man Lymphocytes # (Manual) Monocytes # (Manual) PT INR APTT D-Dimer POC ABG pH ABG pH POC ABG pCO2 POC ABG pO2 ABG pO2 ABG HCO3 ABG O2 Saturation ABG Base Excess ABG Hemoglobin VBG pH Oxyhemoglobin Sodium Potassium Chloride Carbon Dioxide BUN Creatinine Glucose POC Glucose 153 H 174 H 214 H Lactic Acid Calcium Phosphorus Magnesium Iron TIBC Direct Bilirubin AST ALT Alkaline Phosphatase Total Creatine Kinase CK-MB (CK-2) C-Reactive Protein Total Protein Albumin Vitamin B12 Urine WBC (Auto) Salicylates Acetaminophen Miscellaneous Test Crossmatch 03/31/19 03/31/19 03/31/19 13:42 15:08 16:08 WBC RBC Hgb Hct MCV MCH MCHC RDW Plt Count Lymph % (Auto) [place] % (Auto) Lymph # Seg Neutrophils % Seg Neuts % (Manual) Lymphocytes % (Manual) Nucleated RBC % Seg Neutrophils # Seg Neutrophils # Man Lymphocytes # (Manual) Monocytes # (Manual) PT INR APTT D-Dimer POC ABG pH ABG pH POC ABG pCO2 POC ABG pO2 ABG pO2 ABG HCO3 ABG O2 Saturation ABG Base Excess ABG Hemoglobin VBG pH Oxyhemoglobin Sodium Potassium Chloride Carbon Dioxide BUN Creatinine Glucose POC Glucose 186 H 136 H 150 H Lactic Acid Calcium Phosphorus Magnesium Iron TIBC Direct Bilirubin AST ALT Alkaline Phosphatase Total Creatine Kinase CK-MB (CK-2) C-Reactive Protein Total Protein Albumin Vitamin B12 Urine WBC (Auto) Salicylates Acetaminophen Miscellaneous Test Crossmatch 03/31/19 03/31/19 03/31/19 17:11 17:30 17:30 WBC RBC Hgb 7.7 L Hct 23.0 L MCV MCH MCHC RDW Plt Count Lymph % (Auto) [place] % (Auto) Lymph # Seg Neutrophils % Seg Neuts % (Manual) Lymphocytes % (Manual) Nucleated RBC % Seg Neutrophils # Seg Neutrophils # Man Lymphocytes # (Manual) Monocytes # (Manual) PT INR APTT D-Dimer POC ABG pH ABG pH POC ABG pCO2 POC ABG pO2 ABG pO2 ABG HCO3 ABG O2 Saturation ABG Base Excess ABG Hemoglobin VBG pH Oxyhemoglobin Sodium 153 H Potassium 3.5 L Chloride 119.3 H Carbon Dioxide 20 L BUN 34 H Creatinine Glucose 162 H POC Glucose 140 H Lactic Acid Calcium 7.6 L Phosphorus Magnesium Iron TIBC Direct Bilirubin AST ALT Alkaline Phosphatase Total Creatine Kinase CK-MB (CK-2) C-Reactive Protein Total Protein Albumin Vitamin B12 Urine WBC (Auto) Salicylates Acetaminophen Miscellaneous Test Crossmatch 03/31/19 03/31/19 03/31/19 17:59 18:58 20:28 WBC RBC Hgb Hct MCV MCH MCHC RDW Plt Count Lymph % (Auto) [place] % (Auto) Lymph # Seg Neutrophils % Seg Neuts % (Manual) Lymphocytes % (Manual) Nucleated RBC % Seg Neutrophils # Seg Neutrophils # Man Lymphocytes # (Manual) Monocytes # (Manual) PT INR APTT D-Dimer POC ABG pH ABG pH POC ABG pCO2 POC ABG pO2 ABG pO2 ABG HCO3 ABG O2 Saturation ABG Base Excess ABG Hemoglobin VBG pH Oxyhemoglobin Sodium Potassium Chloride Carbon Dioxide BUN Creatinine Glucose POC Glucose 156 H 152 H 138 H Lactic Acid Calcium Phosphorus Magnesium Iron TIBC Direct Bilirubin AST ALT Alkaline Phosphatase Total Creatine Kinase CK-MB (CK-2) C-Reactive Protein Total Protein Albumin Vitamin B12 Urine WBC (Auto) Salicylates Acetaminophen Miscellaneous Test Crossmatch 03/31/19 03/31/19 03/31/19 21:09 22:15 23:10 WBC RBC Hgb Hct MCV MCH MCHC RDW Plt Count Lymph % (Auto) [place] % (Auto) Lymph # Seg Neutrophils % Seg Neuts % (Manual) Lymphocytes % (Manual) Nucleated RBC % Seg Neutrophils # Seg Neutrophils # Man Lymphocytes # (Manual) Monocytes # (Manual) PT INR APTT D-Dimer POC ABG pH ABG pH POC ABG pCO2 POC ABG pO2 ABG pO2 ABG HCO3 ABG O2 Saturation ABG Base Excess ABG Hemoglobin VBG pH Oxyhemoglobin Sodium Potassium Chloride Carbon Dioxide BUN Creatinine Glucose POC Glucose 136 H 137 H 148 H Lactic Acid Calcium Phosphorus Magnesium Iron TIBC Direct Bilirubin AST ALT Alkaline Phosphatase Total Creatine Kinase CK-MB (CK-2) C-Reactive Protein Total Protein Albumin Vitamin B12 Urine WBC (Auto) Salicylates Acetaminophen Miscellaneous Test Crossmatch 04/01/19 04/01/19 04/01/19 00:05 01:17 02:11 WBC RBC Hgb Hct MCV MCH MCHC RDW Plt Count Lymph % (Auto) [place] % (Auto) Lymph # Seg Neutrophils % Seg Neuts % (Manual) Lymphocytes % (Manual) Nucleated RBC % Seg Neutrophils # Seg Neutrophils # Man Lymphocytes # (Manual) Monocytes # (Manual) PT INR APTT D-Dimer POC ABG pH ABG pH POC ABG pCO2 POC ABG pO2 ABG pO2 ABG HCO3 ABG O2 Saturation ABG Base Excess ABG Hemoglobin VBG pH Oxyhemoglobin Sodium Potassium Chloride Carbon Dioxide BUN Creatinine Glucose POC Glucose 143 H 151 H 155 H Lactic Acid Calcium Phosphorus Magnesium Iron TIBC Direct Bilirubin AST ALT Alkaline Phosphatase Total Creatine Kinase CK-MB (CK-2) C-Reactive Protein Total Protein Albumin Vitamin B12 Urine WBC (Auto) Salicylates Acetaminophen Miscellaneous Test Crossmatch 04/01/19 04/01/19 04/01/19 03:12 04:03 04:16 WBC RBC Hgb Hct MCV MCH MCHC RDW Plt Count Lymph % (Auto) [place] % (Auto) Lymph # Seg Neutrophils % Seg Neuts % (Manual) Lymphocytes % (Manual) Nucleated RBC % Seg Neutrophils # Seg Neutrophils # Man Lymphocytes # (Manual) Monocytes # (Manual) PT INR APTT D-Dimer POC ABG pH ABG pH POC ABG pCO2 POC ABG pO2 ABG pO2 ABG HCO3 ABG O2 Saturation ABG Base Excess ABG Hemoglobin VBG pH Oxyhemoglobin Sodium Potassium Chloride Carbon Dioxide BUN Creatinine Glucose POC Glucose 140 H 143 H 142 H Lactic Acid Calcium Phosphorus Magnesium Iron TIBC Direct Bilirubin AST ALT Alkaline Phosphatase Total Creatine Kinase CK-MB (CK-2) C-Reactive Protein Total Protein Albumin Vitamin B12 Urine WBC (Auto) Salicylates Acetaminophen Miscellaneous Test Crossmatch 04/01/19 04/01/19 04/01/19 05:01 05:01 05:08 WBC RBC 2.05 L Hgb 6.8 L Hct 20.5 L MCV 100 H MCH 33 H MCHC RDW 17.7 H Plt Count 53 L Lymph % (Auto) [place] % (Auto) Lymph # Seg Neutrophils % Seg Neuts % (Manual) 71.0 H Lymphocytes % (Manual) Nucleated RBC % Seg Neutrophils # Seg Neutrophils # Man Lymphocytes # (Manual) Monocytes # (Manual) PT INR APTT D-Dimer POC ABG pH ABG pH POC ABG pCO2 POC ABG pO2 ABG pO2 ABG HCO3 ABG O2 Saturation ABG Base Excess ABG Hemoglobin VBG pH Oxyhemoglobin Sodium Potassium Chloride Carbon Dioxide BUN Creatinine Glucose POC Glucose 119 H Lactic Acid Calcium Phosphorus Magnesium Iron TIBC Direct Bilirubin 0.3 H AST 4601 H ALT 1542 H Alkaline Phosphatase 185 H Total Creatine Kinase CK-MB (CK-2) C-Reactive Protein Total Protein 3.8 L Albumin 1.6 L Vitamin B12 Urine WBC (Auto) Salicylates Acetaminophen Miscellaneous Test Crossmatch 04/01/19 04/01/19 04/01/19 05:23 06:37 08:15 WBC RBC Hgb Hct MCV MCH MCHC RDW Plt Count Lymph % (Auto) [place] % (Auto) Lymph # Seg Neutrophils % Seg Neuts % (Manual) Lymphocytes % (Manual) Nucleated RBC % Seg Neutrophils # Seg Neutrophils # Man Lymphocytes # (Manual) Monocytes # (Manual) PT INR APTT D-Dimer POC ABG pH ABG pH POC ABG pCO2 POC ABG pO2 ABG pO2 ABG HCO3 ABG O2 Saturation ABG Base Excess ABG Hemoglobin VBG pH Oxyhemoglobin Sodium Potassium Chloride Carbon Dioxide BUN Creatinine Glucose POC Glucose 115 H 124 H 138 H Lactic Acid Calcium Phosphorus Magnesium Iron TIBC Direct Bilirubin AST ALT Alkaline Phosphatase Total Creatine Kinase CK-MB (CK-2) C-Reactive Protein Total Protein Albumin Vitamin B12 Urine WBC (Auto) Salicylates Acetaminophen Miscellaneous Test Crossmatch 09/08/19 09/08/19 09/08/19 09:50 10:10 10:31 WBC RBC Hgb 6.5 L Hct 19.2 L* MCV MCH MCHC RDW Plt Count Lymph % (Auto) [place] % (Auto) Lymph # Seg Neutrophils % Seg Neuts % (Manual) Lymphocytes % (Manual) Nucleated RBC % Seg Neutrophils # Seg Neutrophils # Man Lymphocytes # (Manual) Monocytes # (Manual) PT INR APTT D-Dimer POC ABG pH ABG pH POC ABG pCO2 POC ABG pO2 ABG pO2 ABG HCO3 ABG O2 Saturation ABG Base Excess ABG Hemoglobin VBG pH Oxyhemoglobin Sodium 149 H Potassium 3.5 L Chloride 119.9 H Carbon Dioxide 21 L BUN 33 H Creatinine 0.5 L Glucose 142 H POC Glucose 185 H Lactic Acid Calcium 7.3 L Phosphorus Magnesium Iron TIBC Direct Bilirubin AST 3686 H ALT 1440 H Alkaline Phosphatase 185 H Total Creatine Kinase CK-MB (CK-2) C-Reactive Protein Total Protein 3.7 L Albumin 1.8 L Vitamin B12 Urine WBC (Auto) Salicylates Acetaminophen Miscellaneous Test Crossmatch 04/01/19 04/01/19 04/01/19 11:35 13:05 14:35 WBC RBC Hgb Hct MCV MCH MCHC RDW Plt Count Lymph % (Auto) [place] % (Auto) Lymph # Seg Neutrophils % Seg Neuts % (Manual) Lymphocytes % (Manual) Nucleated RBC % Seg Neutrophils # Seg Neutrophils # Man Lymphocytes # (Manual) Monocytes # (Manual) PT INR APTT D-Dimer POC ABG pH ABG pH POC ABG pCO2 POC ABG pO2 ABG pO2 ABG HCO3 ABG O2 Saturation ABG Base Excess ABG Hemoglobin VBG pH Oxyhemoglobin Sodium Potassium Chloride Carbon Dioxide BUN Creatinine Glucose POC Glucose 201 H 169 H 134 H Lactic Acid Calcium Phosphorus Magnesium Iron TIBC Direct Bilirubin AST ALT Alkaline Phosphatase Total Creatine Kinase CK-MB (CK-2) C-Reactive Protein Total Protein Albumin Vitamin B12 Urine WBC (Auto) Salicylates Acetaminophen Miscellaneous Test Crossmatch 04/01/19 04/01/19 04/01/19 17:13 17:14 18:30 WBC RBC Hgb Hct MCV MCH MCHC RDW Plt Count Lymph % (Auto) [place] % (Auto) Lymph # Seg Neutrophils % Seg Neuts % (Manual) Lymphocytes % (Manual) Nucleated RBC % Seg Neutrophils # Seg Neutrophils # Man Lymphocytes # (Manual) Monocytes # (Manual) PT INR APTT D-Dimer 5203.68 H POC ABG pH ABG pH POC ABG pCO2 POC ABG pO2 ABG pO2 ABG HCO3 ABG O2 Saturation ABG Base Excess ABG Hemoglobin VBG pH Oxyhemoglobin Sodium Potassium Chloride Carbon Dioxide BUN Creatinine Glucose POC Glucose 69 L 128 H Lactic Acid Calcium Phosphorus Magnesium Iron TIBC Direct Bilirubin AST ALT Alkaline Phosphatase Total Creatine Kinase CK-MB (CK-2) C-Reactive Protein Total Protein Albumin Vitamin B12 Urine WBC (Auto) Salicylates Acetaminophen Miscellaneous Test Crossmatch 04/01/19 04/01/19 04/02/19 22:50 Unknown 03:40 WBC RBC Hgb Hct MCV MCH MCHC RDW Plt Count Lymph % (Auto) [place] % (Auto) Lymph # Seg Neutrophils % Seg Neuts % (Manual) Lymphocytes % (Manual) Nucleated RBC % Seg Neutrophils # Seg Neutrophils # Man Lymphocytes # (Manual) Monocytes # (Manual) PT INR APTT D-Dimer POC ABG pH ABG pH POC ABG pCO2 POC ABG pO2 ABG pO2 78.3 L 142.8 H ABG HCO3 15.5 L ABG O2 Saturation ABG Base Excess -3.5 L -8.2 L ABG Hemoglobin 6.8 L 8.2 L VBG pH Oxyhemoglobin 94.3 L Sodium Potassium Chloride Carbon Dioxide BUN Creatinine Glucose POC Glucose 342 H Lactic Acid Calcium Phosphorus Magnesium Iron TIBC Direct Bilirubin AST ALT Alkaline Phosphatase Total Creatine Kinase CK-MB (CK-2) C-Reactive Protein Total Protein Albumin Vitamin B12 Urine WBC (Auto) Salicylates Acetaminophen Miscellaneous Test Crossmatch 04/02/19 04/02/19 04/02/19 03:49 06:50 07:48 WBC RBC 2.65 L Hgb 8.6 L Hct 25.1 L MCV MCH MCHC RDW 17.6 H Plt Count 48 L Lymph % (Auto) [place] % (Auto) Lymph # Seg Neutrophils % Seg Neuts % (Manual) Lymphocytes % (Manual) Nucleated RBC % Seg Neutrophils # Seg Neutrophils # Man Lymphocytes # (Manual) Monocytes # (Manual) PT INR APTT D-Dimer POC ABG pH ABG pH POC ABG pCO2 POC ABG pO2 ABG pO2 ABG HCO3 ABG O2 Saturation ABG Base Excess ABG Hemoglobin VBG pH Oxyhemoglobin Sodium Potassium Chloride Carbon Dioxide BUN Creatinine Glucose POC Glucose 247 H 200 H Lactic Acid Calcium Phosphorus Magnesium Iron TIBC Direct Bilirubin AST ALT Alkaline Phosphatase Total Creatine Kinase CK-MB (CK-2) C-Reactive Protein Total Protein Albumin Vitamin B12 Urine WBC (Auto) Salicylates Acetaminophen Miscellaneous Test Crossmatch 04/02/19 04/02/19 04/02/19 07:48 11:18 14:07 WBC RBC Hgb Hct MCV MCH MCHC RDW Plt Count Lymph % (Auto) [place] % (Auto) Lymph # Seg Neutrophils % Seg Neuts % (Manual) Lymphocytes % (Manual) Nucleated RBC % Seg Neutrophils # Seg Neutrophils # Man Lymphocytes # (Manual) Monocytes # (Manual) PT INR APTT D-Dimer POC ABG pH ABG pH POC ABG pCO2 POC ABG pO2 ABG pO2 ABG HCO3 ABG O2 Saturation ABG Base Excess ABG Hemoglobin VBG pH Oxyhemoglobin Sodium Potassium 3.5 L Chloride 115.7 H Carbon Dioxide 19 L BUN 29 H Creatinine 0.5 L Glucose 159 H POC Glucose 154 H 149 H Lactic Acid Calcium 7.5 L Phosphorus Magnesium Iron TIBC Direct Bilirubin AST 1418 H ALT 1134 H Alkaline Phosphatase 242 H Total Creatine Kinase CK-MB (CK-2) C-Reactive Protein Total Protein 4.2 L Albumin 2.1 L Vitamin B12 Urine WBC (Auto) Salicylates Acetaminophen Miscellaneous Test Crossmatch 04/02/19 04/02/19 04/02/19 18:09 19:46 23:05 WBC RBC Hgb Hct MCV MCH MCHC RDW Plt Count Lymph % (Auto) [place] % (Auto) Lymph # Seg Neutrophils % Seg Neuts % (Manual) Lymphocytes % (Manual) Nucleated RBC % Seg Neutrophils # Seg Neutrophils # Man Lymphocytes # (Manual) Monocytes # (Manual) PT INR APTT D-Dimer POC ABG pH ABG pH POC ABG pCO2 POC ABG pO2 ABG pO2 ABG HCO3 ABG O2 Saturation ABG Base Excess ABG Hemoglobin VBG pH Oxyhemoglobin Sodium Potassium Chloride Carbon Dioxide BUN Creatinine Glucose POC Glucose 188 H 209 H 247 H Lactic Acid Calcium Phosphorus Magnesium Iron TIBC Direct Bilirubin AST ALT Alkaline Phosphatase Total Creatine Kinase CK-MB (CK-2) C-Reactive Protein Total Protein Albumin Vitamin B12 Urine WBC (Auto) Salicylates Acetaminophen Miscellaneous Test Crossmatch 04/03/19 04/03/19 04/03/19 02:58 03:40 03:40 WBC RBC 2.87 L Hgb 9.3 L Hct 27.0 L MCV MCH MCHC RDW 17.2 H Plt Count 65 L Lymph % (Auto) [place] % (Auto) 9.8 H Lymph # 1.1 L Seg Neutrophils % Seg Neuts % (Manual) Lymphocytes % (Manual) Nucleated RBC % Seg Neutrophils # Seg Neutrophils # Man Lymphocytes # (Manual) Monocytes # (Manual) PT INR APTT D-Dimer POC ABG pH ABG pH POC ABG pCO2 POC ABG pO2 ABG pO2 ABG HCO3 ABG O2 Saturation ABG Base Excess ABG Hemoglobin VBG pH Oxyhemoglobin Sodium 147 H Potassium 3.5 L Chloride 116.7 H Carbon Dioxide 18 L BUN Creatinine 0.4 L Glucose 150 H POC Glucose 166 H Lactic Acid Calcium 8.1 L Phosphorus 2.20 L Magnesium Iron TIBC Direct Bilirubin AST 594 H ALT 861 H Alkaline Phosphatase 299 H Total Creatine Kinase CK-MB (CK-2) C-Reactive Protein Total Protein 4.4 L Albumin 2.1 L Vitamin B12 Urine WBC (Auto) Salicylates Acetaminophen Miscellaneous Test Crossmatch 04/03/19 04/03/19 04/03/19 05:35 07:02 08:23 WBC RBC Hgb Hct MCV MCH MCHC RDW Plt Count Lymph % (Auto) [place] % (Auto) Lymph # Seg Neutrophils % Seg Neuts % (Manual) Lymphocytes % (Manual) Nucleated RBC % Seg Neutrophils # Seg Neutrophils # Man Lymphocytes # (Manual) Monocytes # (Manual) PT INR APTT D-Dimer POC ABG pH ABG pH POC ABG pCO2 POC ABG pO2 ABG pO2 97.7 H ABG HCO3 19.3 L ABG O2 Saturation ABG Base Excess -5.0 L ABG Hemoglobin 8.0 L VBG pH Oxyhemoglobin Sodium Potassium Chloride Carbon Dioxide BUN Creatinine Glucose POC Glucose 135 H 132 H Lactic Acid Calcium Phosphorus Magnesium Iron TIBC Direct Bilirubin AST ALT Alkaline Phosphatase Total Creatine Kinase CK-MB (CK-2) C-Reactive Protein Total Protein Albumin Vitamin B12 Urine WBC (Auto) Salicylates Acetaminophen Miscellaneous Test Crossmatch 04/03/19 04/03/19 04/03/19 11:58 15:11 17:53 WBC RBC Hgb Hct MCV MCH MCHC RDW Plt Count Lymph % (Auto) [place] % (Auto) Lymph # Seg Neutrophils % Seg Neuts % (Manual) Lymphocytes % (Manual) Nucleated RBC % Seg Neutrophils # Seg Neutrophils # Man Lymphocytes # (Manual) Monocytes # (Manual) PT INR APTT D-Dimer POC ABG pH ABG pH POC ABG pCO2 POC ABG pO2 ABG pO2 ABG HCO3 ABG O2 Saturation ABG Base Excess ABG Hemoglobin VBG pH Oxyhemoglobin Sodium Potassium Chloride Carbon Dioxide BUN Creatinine Glucose POC Glucose 179 H 213 H 223 H Lactic Acid Calcium Phosphorus Magnesium Iron TIBC Direct Bilirubin AST ALT Alkaline Phosphatase Total Creatine Kinase CK-MB (CK-2) C-Reactive Protein Total Protein Albumin Vitamin B12 Urine WBC (Auto) Salicylates Acetaminophen Miscellaneous Test Crossmatch 04/03/19 04/04/19 04/04/19 23:06 02:36 06:41 WBC RBC Hgb Hct MCV MCH MCHC RDW Plt Count Lymph % (Auto) [place] % (Auto) Lymph # Seg Neutrophils % Seg Neuts % (Manual) Lymphocytes % (Manual) Nucleated RBC % Seg Neutrophils # Seg Neutrophils # Man Lymphocytes # (Manual) Monocytes # (Manual) PT INR APTT D-Dimer POC ABG pH ABG pH POC ABG pCO2 POC ABG pO2 ABG pO2 ABG HCO3 ABG O2 Saturation ABG Base Excess ABG Hemoglobin VBG pH Oxyhemoglobin Sodium Potassium Chloride Carbon Dioxide BUN Creatinine Glucose POC Glucose 189 H 157 H 131 H Lactic Acid Calcium Phosphorus Magnesium Iron TIBC Direct Bilirubin AST ALT Alkaline Phosphatase Total Creatine Kinase CK-MB (CK-2) C-Reactive Protein Total Protein Albumin Vitamin B12 Urine WBC (Auto) Salicylates Acetaminophen Miscellaneous Test Crossmatch 04/04/19 04/04/19 04/04/19 11:42 15:45 18:21 WBC RBC Hgb Hct MCV MCH MCHC RDW Plt Count Lymph % (Auto) [place] % (Auto) Lymph # Seg Neutrophils % Seg Neuts % (Manual) Lymphocytes % (Manual) Nucleated RBC % Seg Neutrophils # Seg Neutrophils # Man Lymphocytes # (Manual) Monocytes # (Manual) PT INR APTT D-Dimer POC ABG pH ABG pH POC ABG pCO2 POC ABG pO2 ABG pO2 ABG HCO3 ABG O2 Saturation ABG Base Excess ABG Hemoglobin VBG pH Oxyhemoglobin Sodium Potassium Chloride Carbon Dioxide BUN Creatinine Glucose POC Glucose 233 H 236 H 255 H Lactic Acid Calcium Phosphorus Magnesium Iron TIBC Direct Bilirubin AST ALT Alkaline Phosphatase Total Creatine Kinase CK-MB (CK-2) C-Reactive Protein Total Protein Albumin Vitamin B12 Urine WBC (Auto) Salicylates Acetaminophen Miscellaneous Test Crossmatch 04/04/19 04/05/19 04/05/19 21:21 03:06 06:05 WBC RBC 2.68 L Hgb 8.5 L Hct 26.3 L MCV 98 H MCH MCHC RDW 17.4 H Plt Count Lymph % (Auto) [place] % (Auto) Lymph # Seg Neutrophils % Seg Neuts % (Manual) Lymphocytes % (Manual) Nucleated RBC % Seg Neutrophils # Seg Neutrophils # Man Lymphocytes # (Manual) Monocytes # (Manual) PT INR APTT D-Dimer POC ABG pH ABG pH POC ABG pCO2 POC ABG pO2 ABG pO2 ABG HCO3 ABG O2 Saturation ABG Base Excess ABG Hemoglobin VBG pH Oxyhemoglobin Sodium Potassium Chloride Carbon Dioxide BUN Creatinine Glucose POC Glucose 132 H 161 H Lactic Acid Calcium Phosphorus Magnesium Iron TIBC Direct Bilirubin AST ALT Alkaline Phosphatase Total Creatine Kinase CK-MB (CK-2) C-Reactive Protein Total Protein Albumin Vitamin B12 Urine WBC (Auto) Salicylates Acetaminophen Miscellaneous Test Crossmatch 04/05/19 04/05/19 04/05/19 06:05 06:49 10:23 WBC RBC Hgb Hct MCV MCH MCHC RDW Plt Count Lymph % (Auto) [place] % (Auto) Lymph # Seg Neutrophils % Seg Neuts % (Manual) Lymphocytes % (Manual) Nucleated RBC % Seg Neutrophils # Seg Neutrophils # Man Lymphocytes # (Manual) Monocytes # (Manual) PT INR APTT D-Dimer POC ABG pH ABG pH POC ABG pCO2 POC ABG pO2 ABG pO2 ABG HCO3 ABG O2 Saturation ABG Base Excess ABG Hemoglobin VBG pH Oxyhemoglobin Sodium Potassium Chloride 112.5 H Carbon Dioxide BUN Creatinine 0.2 L Glucose 237 H POC Glucose 283 H 296 H Lactic Acid Calcium 7.9 L Phosphorus Magnesium Iron TIBC Direct Bilirubin AST ALT Alkaline Phosphatase Total Creatine Kinase CK-MB (CK-2) C-Reactive Protein Total Protein Albumin Vitamin B12 Urine WBC (Auto) Salicylates Acetaminophen Miscellaneous Test Crossmatch 04/05/19 04/05/19 04/05/19 14:46 18:19 20:35 WBC RBC Hgb Hct MCV MCH MCHC RDW Plt Count Lymph % (Auto) [place] % (Auto) Lymph # Seg Neutrophils % Seg Neuts % (Manual) Lymphocytes % (Manual) Nucleated RBC % Seg Neutrophils # Seg Neutrophils # Man Lymphocytes # (Manual) Monocytes # (Manual) PT INR APTT D-Dimer POC ABG pH ABG pH POC ABG pCO2 POC ABG pO2 ABG pO2 ABG HCO3 ABG O2 Saturation ABG Base Excess ABG Hemoglobin VBG pH Oxyhemoglobin Sodium Potassium Chloride Carbon Dioxide BUN Creatinine Glucose POC Glucose 225 H 259 H 236 H Lactic Acid Calcium Phosphorus Magnesium Iron TIBC Direct Bilirubin AST ALT Alkaline Phosphatase Total Creatine Kinase CK-MB (CK-2) C-Reactive Protein Total Protein Albumin Vitamin B12 Urine WBC (Auto) Salicylates Acetaminophen Miscellaneous Test Crossmatch 04/05/19 04/06/19 04/06/19 23:11 00:06 03:14 WBC RBC Hgb Hct MCV MCH MCHC RDW Plt Count Lymph % (Auto) [place] % (Auto) Lymph # Seg Neutrophils % Seg Neuts % (Manual) Lymphocytes % (Manual) Nucleated RBC % Seg Neutrophils # Seg Neutrophils # Man Lymphocytes # (Manual) Monocytes # (Manual) PT INR APTT D-Dimer 4526.86 H POC ABG pH ABG pH POC ABG pCO2 POC ABG pO2 ABG pO2 ABG HCO3 ABG O2 Saturation ABG Base Excess ABG Hemoglobin VBG pH Oxyhemoglobin Sodium Potassium Chloride Carbon Dioxide BUN Creatinine Glucose POC Glucose 205 H 228 H Lactic Acid Calcium Phosphorus Magnesium Iron TIBC Direct Bilirubin AST ALT Alkaline Phosphatase Total Creatine Kinase CK-MB (CK-2) C-Reactive Protein Total Protein Albumin Vitamin B12 Urine WBC (Auto) Salicylates Acetaminophen Miscellaneous Test Crossmatch 04/06/19 04/06/19 04/06/19 05:20 05:20 07:57 WBC 15.1 H RBC 2.90 L Hgb 9.1 L Hct 28.0 L MCV MCH MCHC RDW 17.3 H Plt Count Lymph % (Auto) [place] % (Auto) Lymph # Seg Neutrophils % Seg Neuts % (Manual) Lymphocytes % (Manual) Nucleated RBC % Seg Neutrophils # Seg Neutrophils # Man Lymphocytes # (Manual) Monocytes # (Manual) PT INR APTT D-Dimer POC ABG pH ABG pH POC ABG pCO2 POC ABG pO2 ABG pO2 ABG HCO3 ABG O2 Saturation ABG Base Excess ABG Hemoglobin VBG pH Oxyhemoglobin Sodium Potassium Chloride Carbon Dioxide BUN Creatinine 0.2 L Glucose 161 H POC Glucose 191 H Lactic Acid Calcium 8.0 L Phosphorus Magnesium Iron TIBC Direct Bilirubin AST ALT Alkaline Phosphatase Total Creatine Kinase CK-MB (CK-2) C-Reactive Protein Total Protein Albumin Vitamin B12 Urine WBC (Auto) Salicylates Acetaminophen Miscellaneous Test Crossmatch 04/06/19 04/06/19 04/06/19 12:09 18:24 22:07 WBC RBC Hgb Hct MCV MCH MCHC RDW Plt Count Lymph % (Auto) [place] % (Auto) Lymph # Seg Neutrophils % Seg Neuts % (Manual) Lymphocytes % (Manual) Nucleated RBC % Seg Neutrophils # Seg Neutrophils # Man Lymphocytes # (Manual) Monocytes # (Manual) PT INR APTT D-Dimer POC ABG pH ABG pH POC ABG pCO2 POC ABG pO2 ABG pO2 ABG HCO3 ABG O2 Saturation ABG Base Excess ABG Hemoglobin VBG pH Oxyhemoglobin Sodium Potassium Chloride Carbon Dioxide BUN Creatinine Glucose POC Glucose 143 H 161 H 140 H Lactic Acid Calcium Phosphorus Magnesium Iron TIBC Direct Bilirubin AST ALT Alkaline Phosphatase Total Creatine Kinase CK-MB (CK-2) C-Reactive Protein Total Protein Albumin Vitamin B12 Urine WBC (Auto) Salicylates Acetaminophen Miscellaneous Test Crossmatch 04/07/19 04/07/19 04/07/19 03:00 04:30 04:30 WBC 13.0 H RBC 2.65 L Hgb 8.3 L Hct 25.5 L MCV MCH MCHC RDW 17.0 H Plt Count Lymph % (Auto) [place] % (Auto) Lymph # Seg Neutrophils % Seg Neuts % (Manual) Lymphocytes % (Manual) Nucleated RBC % Seg Neutrophils # Seg Neutrophils # Man Lymphocytes # (Manual) Monocytes # (Manual) PT INR APTT D-Dimer POC ABG pH ABG pH POC ABG pCO2 POC ABG pO2 ABG pO2 ABG HCO3 ABG O2 Saturation ABG Base Excess ABG Hemoglobin VBG pH Oxyhemoglobin Sodium Potassium Chloride Carbon Dioxide BUN Creatinine 0.2 L Glucose 208 H POC Glucose 224 H Lactic Acid Calcium 7.7 L Phosphorus Magnesium Iron TIBC Direct Bilirubin AST ALT Alkaline Phosphatase Total Creatine Kinase CK-MB (CK-2) C-Reactive Protein Total Protein Albumin Vitamin B12 Urine WBC (Auto) Salicylates Acetaminophen Miscellaneous Test Crossmatch 04/07/19 04/07/19 04/07/19 05:47 08:27 10:33 WBC RBC Hgb Hct MCV MCH MCHC RDW Plt Count Lymph % (Auto) [place] % (Auto) Lymph # Seg Neutrophils % Seg Neuts % (Manual) Lymphocytes % (Manual) Nucleated RBC % Seg Neutrophils # Seg Neutrophils # Man Lymphocytes # (Manual) Monocytes # (Manual) PT INR APTT D-Dimer POC ABG pH ABG pH POC ABG pCO2 POC ABG pO2 ABG pO2 ABG HCO3 ABG O2 Saturation ABG Base Excess ABG Hemoglobin VBG pH Oxyhemoglobin Sodium Potassium Chloride Carbon Dioxide BUN Creatinine Glucose POC Glucose 225 H 176 H 207 H Lactic Acid Calcium Phosphorus Magnesium Iron TIBC Direct Bilirubin AST ALT Alkaline Phosphatase Total Creatine Kinase CK-MB (CK-2) C-Reactive Protein Total Protein Albumin Vitamin B12 Urine WBC (Auto) Salicylates Acetaminophen Miscellaneous Test Crossmatch 04/07/19 04/07/19 04/07/19 14:13 18:32 22:42 WBC RBC Hgb Hct MCV MCH MCHC RDW Plt Count Lymph % (Auto) [place] % (Auto) Lymph # Seg Neutrophils % Seg Neuts % (Manual) Lymphocytes % (Manual) Nucleated RBC % Seg Neutrophils # Seg Neutrophils # Man Lymphocytes # (Manual) Monocytes # (Manual) PT INR APTT D-Dimer POC ABG pH ABG pH POC ABG pCO2 POC ABG pO2 ABG pO2 ABG HCO3 ABG O2 Saturation ABG Base Excess ABG Hemoglobin VBG pH Oxyhemoglobin Sodium Potassium Chloride Carbon Dioxide BUN Creatinine Glucose POC Glucose 219 H 227 H 238 H Lactic Acid Calcium Phosphorus Magnesium Iron TIBC Direct Bilirubin AST ALT Alkaline Phosphatase Total Creatine Kinase CK-MB (CK-2) C-Reactive Protein Total Protein Albumin Vitamin B12 Urine WBC (Auto) Salicylates Acetaminophen Miscellaneous Test Crossmatch 04/08/19 04/08/19 04/08/19 02:31 05:37 14:10 WBC RBC Hgb Hct MCV MCH MCHC RDW Plt Count Lymph % (Auto) [place] % (Auto) Lymph # Seg Neutrophils % Seg Neuts % (Manual) Lymphocytes % (Manual) Nucleated RBC % Seg Neutrophils # Seg Neutrophils # Man Lymphocytes # (Manual) Monocytes # (Manual) PT INR APTT D-Dimer POC ABG pH ABG pH POC ABG pCO2 POC ABG pO2 ABG pO2 ABG HCO3 ABG O2 Saturation ABG Base Excess ABG Hemoglobin VBG pH Oxyhemoglobin Sodium Potassium Chloride Carbon Dioxide BUN Creatinine Glucose POC Glucose 194 H 194 H 139 H Lactic Acid Calcium Phosphorus Magnesium Iron TIBC Direct Bilirubin AST ALT Alkaline Phosphatase Total Creatine Kinase CK-MB (CK-2) C-Reactive Protein Total Protein Albumin Vitamin B12 Urine WBC (Auto) Salicylates Acetaminophen Miscellaneous Test Crossmatch 04/08/19 04/08/19 04/09/19 17:43 23:20 03:28 WBC RBC Hgb Hct MCV MCH MCHC RDW Plt Count Lymph % (Auto) [place] % (Auto) Lymph # Seg Neutrophils % Seg Neuts % (Manual) Lymphocytes % (Manual) Nucleated RBC % Seg Neutrophils # Seg Neutrophils # Man Lymphocytes # (Manual) Monocytes # (Manual) PT INR APTT D-Dimer POC ABG pH ABG pH POC ABG pCO2 POC ABG pO2 ABG pO2 ABG HCO3 ABG O2 Saturation ABG Base Excess ABG Hemoglobin VBG pH Oxyhemoglobin Sodium Potassium Chloride Carbon Dioxide BUN Creatinine Glucose POC Glucose 261 H 277 H 301 H Lactic Acid Calcium Phosphorus Magnesium Iron TIBC Direct Bilirubin AST ALT Alkaline Phosphatase Total Creatine Kinase CK-MB (CK-2) C-Reactive Protein Total Protein Albumin Vitamin B12 Urine WBC (Auto) Salicylates Acetaminophen Miscellaneous Test Crossmatch 04/09/19 04/09/19 04/09/19 05:35 05:35 05:35 WBC RBC 2.78 L Hgb 9.0 L Hct 26.7 L MCV MCH MCHC RDW 17.0 H Plt Count Lymph % (Auto) [place] % (Auto) Lymph # Seg Neutrophils % Seg Neuts % (Manual) Lymphocytes % (Manual) Nucleated RBC % Seg Neutrophils # Seg Neutrophils # Man Lymphocytes # (Manual) Monocytes # (Manual) PT INR APTT D-Dimer POC ABG pH ABG pH POC ABG pCO2 POC ABG pO2 ABG pO2 ABG HCO3 ABG O2 Saturation ABG Base Excess ABG Hemoglobin VBG pH Oxyhemoglobin Sodium Potassium Chloride Carbon Dioxide 31 H BUN Creatinine 0.2 L Glucose 218 H POC Glucose 240 H Lactic Acid Calcium Phosphorus Magnesium Iron TIBC Direct Bilirubin AST ALT Alkaline Phosphatase Total Creatine Kinase CK-MB (CK-2) C-Reactive Protein Total Protein Albumin Vitamin B12 Urine WBC (Auto) Salicylates Acetaminophen Miscellaneous Test Crossmatch 04/09/19 04/09/19 04/09/19 09:01 12:23 17:33 WBC RBC Hgb Hct MCV MCH MCHC RDW Plt Count Lymph % (Auto) [place] % (Auto) Lymph # Seg Neutrophils % Seg Neuts % (Manual) Lymphocytes % (Manual) Nucleated RBC % Seg Neutrophils # Seg Neutrophils # Man Lymphocytes # (Manual) Monocytes # (Manual) PT INR APTT D-Dimer POC ABG pH ABG pH POC ABG pCO2 POC ABG pO2 ABG pO2 ABG HCO3 ABG O2 Saturation ABG Base Excess ABG Hemoglobin VBG pH Oxyhemoglobin Sodium Potassium Chloride Carbon Dioxide BUN Creatinine Glucose POC Glucose 160 H 162 H 149 H Lactic Acid Calcium Phosphorus Magnesium Iron TIBC Direct Bilirubin AST ALT Alkaline Phosphatase Total Creatine Kinase CK-MB (CK-2) C-Reactive Protein Total Protein Albumin Vitamin B12 Urine WBC (Auto) Salicylates Acetaminophen Miscellaneous Test Crossmatch 04/09/19 04/09/19 04/10/19 21:26 22:28 03:16 WBC RBC Hgb Hct MCV MCH MCHC RDW Plt Count Lymph % (Auto) [place] % (Auto) Lymph # Seg Neutrophils % Seg Neuts % (Manual) Lymphocytes % (Manual) Nucleated RBC % Seg Neutrophils # Seg Neutrophils # Man Lymphocytes # (Manual) Monocytes # (Manual) PT INR APTT D-Dimer POC ABG pH ABG pH POC ABG pCO2 POC ABG pO2 ABG pO2 ABG HCO3 ABG O2 Saturation ABG Base Excess ABG Hemoglobin VBG pH Oxyhemoglobin Sodium Potassium Chloride Carbon Dioxide BUN Creatinine Glucose POC Glucose 196 H 224 H 163 H Lactic Acid Calcium Phosphorus Magnesium Iron TIBC Direct Bilirubin AST ALT Alkaline Phosphatase Total Creatine Kinase CK-MB (CK-2) C-Reactive Protein Total Protein Albumin Vitamin B12 Urine WBC (Auto) Salicylates Acetaminophen Miscellaneous Test Crossmatch 04/10/19 04/10/19 04/10/19 04:15 04:15 05:30 WBC RBC 2.88 L Hgb 9.2 L Hct 27.9 L MCV MCH MCHC RDW 17.0 H Plt Count 454 H Lymph % (Auto) [place] % (Auto) Lymph # Seg Neutrophils % Seg Neuts % (Manual) Lymphocytes % (Manual) Nucleated RBC % Seg Neutrophils # Seg Neutrophils # Man Lymphocytes # (Manual) Monocytes # (Manual) PT INR APTT D-Dimer POC ABG pH ABG pH POC ABG pCO2 POC ABG pO2 ABG pO2 ABG HCO3 ABG O2 Saturation ABG Base Excess ABG Hemoglobin VBG pH Oxyhemoglobin Sodium Potassium Chloride Carbon Dioxide 32 H BUN Creatinine 0.2 L Glucose 126 H POC Glucose 135 H Lactic Acid Calcium Phosphorus Magnesium Iron TIBC Direct Bilirubin AST ALT Alkaline Phosphatase Total Creatine Kinase CK-MB (CK-2) C-Reactive Protein Total Protein Albumin Vitamin B12 Urine WBC (Auto) Salicylates Acetaminophen Miscellaneous Test Crossmatch 04/10/19 04/10/19 04/10/19 12:14 15:29 23:38 WBC RBC Hgb Hct MCV MCH MCHC RDW Plt Count Lymph % (Auto) [place] % (Auto) Lymph # Seg Neutrophils % Seg Neuts % (Manual) Lymphocytes % (Manual) Nucleated RBC % Seg Neutrophils # Seg Neutrophils # Man Lymphocytes # (Manual) Monocytes # (Manual) PT INR APTT D-Dimer POC ABG pH ABG pH POC ABG pCO2 POC ABG pO2 ABG pO2 ABG HCO3 ABG O2 Saturation ABG Base Excess ABG Hemoglobin VBG pH Oxyhemoglobin Sodium Potassium Chloride Carbon Dioxide BUN Creatinine Glucose POC Glucose 109 H 149 H 268 H Lactic Acid Calcium Phosphorus Magnesium Iron TIBC Direct Bilirubin AST ALT Alkaline Phosphatase Total Creatine Kinase CK-MB (CK-2) C-Reactive Protein Total Protein Albumin Vitamin B12 Urine WBC (Auto) Salicylates Acetaminophen Miscellaneous Test Crossmatch 04/11/19 04/11/19 04/11/19 05:27 12:08 18:08 WBC RBC Hgb Hct MCV MCH MCHC RDW Plt Count Lymph % (Auto) [place] % (Auto) Lymph # Seg Neutrophils % Seg Neuts % (Manual) Lymphocytes % (Manual) Nucleated RBC % Seg Neutrophils # Seg Neutrophils # Man Lymphocytes # (Manual) Monocytes # (Manual) PT INR APTT D-Dimer POC ABG pH ABG pH POC ABG pCO2 POC ABG pO2 ABG pO2 ABG HCO3 ABG O2 Saturation ABG Base Excess ABG Hemoglobin VBG pH Oxyhemoglobin Sodium Potassium Chloride Carbon Dioxide BUN Creatinine Glucose POC Glucose 109 H 185 H 190 H Lactic Acid Calcium Phosphorus Magnesium Iron TIBC Direct Bilirubin AST ALT Alkaline Phosphatase Total Creatine Kinase CK-MB (CK-2) C-Reactive Protein Total Protein Albumin Vitamin B12 Urine WBC (Auto) Salicylates Acetaminophen Miscellaneous Test Crossmatch 04/11/19 04/12/19 04/12/19 23:23 06:00 11:42 WBC RBC Hgb Hct MCV MCH MCHC RDW Plt Count Lymph % (Auto) [place] % (Auto) Lymph # Seg Neutrophils % Seg Neuts % (Manual) Lymphocytes % (Manual) Nucleated RBC % Seg Neutrophils # Seg Neutrophils # Man Lymphocytes # (Manual) Monocytes # (Manual) PT INR APTT D-Dimer POC ABG pH ABG pH POC ABG pCO2 POC ABG pO2 ABG pO2 ABG HCO3 ABG O2 Saturation ABG Base Excess ABG Hemoglobin VBG pH Oxyhemoglobin Sodium Potassium Chloride Carbon Dioxide BUN Creatinine Glucose POC Glucose 127 H 201 H 161 H Lactic Acid Calcium Phosphorus Magnesium Iron TIBC Direct Bilirubin AST ALT Alkaline Phosphatase Total Creatine Kinase CK-MB (CK-2) C-Reactive Protein Total Protein Albumin Vitamin B12 Urine WBC (Auto) Salicylates Acetaminophen Miscellaneous Test Crossmatch 04/12/19 04/12/19 04/12/19 17:56 20:07 21:59 WBC RBC Hgb Hct MCV MCH MCHC RDW Plt Count Lymph % (Auto) [place] % (Auto) Lymph # Seg Neutrophils % Seg Neuts % (Manual) Lymphocytes % (Manual) Nucleated RBC % Seg Neutrophils # Seg Neutrophils # Man Lymphocytes # (Manual) Monocytes # (Manual) PT INR APTT D-Dimer POC ABG pH ABG pH POC ABG pCO2 POC ABG pO2 ABG pO2 ABG HCO3 ABG O2 Saturation ABG Base Excess ABG Hemoglobin VBG pH Oxyhemoglobin Sodium Potassium Chloride Carbon Dioxide BUN Creatinine Glucose POC Glucose 145 H 158 H 203 H Lactic Acid Calcium Phosphorus Magnesium Iron TIBC Direct Bilirubin AST ALT Alkaline Phosphatase Total Creatine Kinase CK-MB (CK-2) C-Reactive Protein Total Protein Albumin Vitamin B12 Urine WBC (Auto) Salicylates Acetaminophen Miscellaneous Test Crossmatch 04/12/19 04/13/19 04/13/19 23:37 08:50 08:50 WBC 15.7 H RBC 3.12 L Hgb Hct 30.2 L MCV MCH 33 H MCHC RDW 18.0 H Plt Count 678 H Lymph % (Auto) [place] % (Auto) Lymph # Seg Neutrophils % Seg Neuts % (Manual) Lymphocytes % (Manual) Nucleated RBC % Seg Neutrophils # Seg Neutrophils # Man Lymphocytes # (Manual) Monocytes # (Manual) PT INR APTT D-Dimer POC ABG pH ABG pH POC ABG pCO2 POC ABG pO2 ABG pO2 ABG HCO3 ABG O2 Saturation ABG Base Excess ABG Hemoglobin VBG pH Oxyhemoglobin Sodium Potassium Chloride Carbon Dioxide BUN Creatinine < 0.2 L Glucose 46 L POC Glucose 238 H Lactic Acid Calcium Phosphorus Magnesium Iron TIBC Direct Bilirubin AST ALT Alkaline Phosphatase Total Creatine Kinase CK-MB (CK-2) C-Reactive Protein Total Protein Albumin Vitamin B12 Urine WBC (Auto) Salicylates Acetaminophen Miscellaneous Test Crossmatch 04/13/19 04/13/19 04/13/19 11:56 17:27 23:57 WBC RBC Hgb Hct MCV MCH MCHC RDW Plt Count Lymph % (Auto) [place] % (Auto) Lymph # Seg Neutrophils % Seg Neuts % (Manual) Lymphocytes % (Manual) Nucleated RBC % Seg Neutrophils # Seg Neutrophils # Man Lymphocytes # (Manual) Monocytes # (Manual) PT INR APTT D-Dimer POC ABG pH ABG pH POC ABG pCO2 POC ABG pO2 ABG pO2 ABG HCO3 ABG O2 Saturation ABG Base Excess ABG Hemoglobin VBG pH Oxyhemoglobin Sodium Potassium Chloride Carbon Dioxide BUN Creatinine Glucose POC Glucose 40 L 66 L 65 L Lactic Acid Calcium Phosphorus Magnesium Iron TIBC Direct Bilirubin AST ALT Alkaline Phosphatase Total Creatine Kinase CK-MB (CK-2) C-Reactive Protein Total Protein Albumin Vitamin B12 Urine WBC (Auto) Salicylates Acetaminophen Miscellaneous Test Crossmatch 04/14/19 04/14/19 04/14/19 05:28 08:20 08:20 WBC 17.8 H RBC 3.26 L Hgb Hct MCV 98 H MCH MCHC RDW 18.3 H Plt Count 622 H Lymph % (Auto) [place] % (Auto) Lymph # Seg Neutrophils % Seg Neuts % (Manual) Lymphocytes % (Manual) Nucleated RBC % Seg Neutrophils # Seg Neutrophils # Man Lymphocytes # (Manual) Monocytes # (Manual) PT INR APTT D-Dimer POC ABG pH ABG pH POC ABG pCO2 POC ABG pO2 ABG pO2 ABG HCO3 ABG O2 Saturation ABG Base Excess ABG Hemoglobin VBG pH Oxyhemoglobin Sodium Potassium Chloride Carbon Dioxide BUN 6 L Creatinine < 0.2 L Glucose 154 H POC Glucose 149 H Lactic Acid Calcium Phosphorus Magnesium Iron TIBC Direct Bilirubin AST ALT Alkaline Phosphatase Total Creatine Kinase CK-MB (CK-2) C-Reactive Protein Total Protein Albumin Vitamin B12 Urine WBC (Auto) Salicylates Acetaminophen Miscellaneous Test Crossmatch 04/14/19 04/14/19 04/14/19 12:16 17:54 23:35 WBC RBC Hgb Hct MCV MCH MCHC RDW Plt Count Lymph % (Auto) [place] % (Auto) Lymph # Seg Neutrophils % Seg Neuts % (Manual) Lymphocytes % (Manual) Nucleated RBC % Seg Neutrophils # Seg Neutrophils # Man Lymphocytes # (Manual) Monocytes # (Manual) PT INR APTT D-Dimer POC ABG pH ABG pH POC ABG pCO2 POC ABG pO2 ABG pO2 ABG HCO3 ABG O2 Saturation ABG Base Excess ABG Hemoglobin VBG pH Oxyhemoglobin Sodium Potassium Chloride Carbon Dioxide BUN Creatinine Glucose POC Glucose 176 H 224 H 173 H Lactic Acid Calcium Phosphorus Magnesium Iron TIBC Direct Bilirubin AST ALT Alkaline Phosphatase Total Creatine Kinase CK-MB (CK-2) C-Reactive Protein Total Protein Albumin Vitamin B12 Urine WBC (Auto) Salicylates Acetaminophen Miscellaneous Test Crossmatch 04/15/19 04/15/19 04/15/19 05:44 12:44 18:06 WBC RBC Hgb Hct MCV MCH MCHC RDW Plt Count Lymph % (Auto) [place] % (Auto) Lymph # Seg Neutrophils % Seg Neuts % (Manual) Lymphocytes % (Manual) Nucleated RBC % Seg Neutrophils # Seg Neutrophils # Man Lymphocytes # (Manual) Monocytes # (Manual) PT INR APTT D-Dimer POC ABG pH 7.461 H ABG pH POC ABG pCO2 45.5 H POC ABG pO2 ABG pO2 ABG HCO3 ABG O2 Saturation ABG Base Excess ABG Hemoglobin VBG pH Oxyhemoglobin Sodium Potassium Chloride Carbon Dioxide BUN Creatinine Glucose POC Glucose 255 H 365 H Lactic Acid Calcium Phosphorus Magnesium Iron TIBC Direct Bilirubin AST ALT Alkaline Phosphatase Total Creatine Kinase CK-MB (CK-2) C-Reactive Protein Total Protein Albumin Vitamin B12 Urine WBC (Auto) Salicylates Acetaminophen Miscellaneous Test Crossmatch 04/15/19 04/15/19 04/16/19 18:06 23:34 00:40 WBC RBC Hgb Hct MCV MCH MCHC RDW Plt Count Lymph % (Auto) [place] % (Auto) Lymph # Seg Neutrophils % Seg Neuts % (Manual) Lymphocytes % (Manual) Nucleated RBC % Seg Neutrophils # Seg Neutrophils # Man Lymphocytes # (Manual) Monocytes # (Manual) PT INR APTT D-Dimer POC ABG pH ABG pH POC ABG pCO2 POC ABG pO2 ABG pO2 ABG HCO3 ABG O2 Saturation ABG Base Excess ABG Hemoglobin VBG pH Oxyhemoglobin Sodium Potassium Chloride Carbon Dioxide BUN Creatinine Glucose POC Glucose 157 H 56 L 107 H Lactic Acid Calcium Phosphorus Magnesium Iron TIBC Direct Bilirubin AST ALT Alkaline Phosphatase Total Creatine Kinase CK-MB (CK-2) C-Reactive Protein Total Protein Albumin Vitamin B12 Urine WBC (Auto) Salicylates Acetaminophen Miscellaneous Test Crossmatch 04/16/19 04/16/19 04/16/19 09:06 09:06 11:21 WBC 12.9 H RBC 2.95 L Hgb 9.7 L Hct 28.9 L MCV 98 H MCH 33 H MCHC RDW 17.7 H Plt Count 581 H Lymph % (Auto) [place] % (Auto) Lymph # Seg Neutrophils % Seg Neuts % (Manual) Lymphocytes % (Manual) Nucleated RBC % Seg Neutrophils # Seg Neutrophils # Man Lymphocytes # (Manual) Monocytes # (Manual) PT INR APTT D-Dimer POC ABG pH ABG pH POC ABG pCO2 POC ABG pO2 ABG pO2 ABG HCO3 ABG O2 Saturation ABG Base Excess ABG Hemoglobin VBG pH Oxyhemoglobin Sodium Potassium Chloride Carbon Dioxide 31 H BUN Creatinine 0.2 L Glucose 155 H POC Glucose 184 H Lactic Acid Calcium Phosphorus Magnesium Iron TIBC Direct Bilirubin AST ALT Alkaline Phosphatase Total Creatine Kinase CK-MB (CK-2) C-Reactive Protein Total Protein Albumin Vitamin B12 Urine WBC (Auto) Salicylates Acetaminophen Miscellaneous Test Crossmatch 04/16/19 04/16/19 04/16/19 17:28 20:17 23:09 WBC RBC Hgb Hct MCV MCH MCHC RDW Plt Count Lymph % (Auto) [place] % (Auto) Lymph # Seg Neutrophils % Seg Neuts % (Manual) Lymphocytes % (Manual) Nucleated RBC % Seg Neutrophils # Seg Neutrophils # Man Lymphocytes # (Manual) Monocytes # (Manual) PT INR APTT D-Dimer POC ABG pH 7.479 H ABG pH POC ABG pCO2 POC ABG pO2 71 L ABG pO2 ABG HCO3 ABG O2 Saturation ABG Base Excess ABG Hemoglobin VBG pH Oxyhemoglobin Sodium Potassium Chloride Carbon Dioxide BUN Creatinine Glucose POC Glucose 173 H 178 H Lactic Acid Calcium Phosphorus Magnesium Iron TIBC Direct Bilirubin AST ALT Alkaline Phosphatase Total Creatine Kinase CK-MB (CK-2) C-Reactive Protein Total Protein Albumin Vitamin B12 Urine WBC (Auto) Salicylates Acetaminophen Miscellaneous Test Crossmatch 04/17/19 04/17/19 04/17/19 05:02 11:39 12:48 WBC RBC Hgb Hct MCV MCH MCHC RDW Plt Count Lymph % (Auto) [place] % (Auto) Lymph # Seg Neutrophils % Seg Neuts % (Manual) Lymphocytes % (Manual) Nucleated RBC % Seg Neutrophils # Seg Neutrophils # Man Lymphocytes # (Manual) Monocytes # (Manual) PT INR APTT D-Dimer POC ABG pH 7.557 H ABG pH POC ABG pCO2 32.8 L POC ABG pO2 149 H ABG pO2 ABG HCO3 ABG O2 Saturation ABG Base Excess ABG Hemoglobin VBG pH Oxyhemoglobin Sodium Potassium Chloride Carbon Dioxide BUN Creatinine Glucose POC Glucose 252 H 124 H Lactic Acid Calcium Phosphorus Magnesium Iron TIBC Direct Bilirubin AST ALT Alkaline Phosphatase Total Creatine Kinase CK-MB (CK-2) C-Reactive Protein Total Protein Albumin Vitamin B12 Urine WBC (Auto) Salicylates Acetaminophen Miscellaneous Test Crossmatch 04/17/19 04/18/19 04/18/19 23:31 05:32 11:34 WBC RBC Hgb Hct MCV MCH MCHC RDW Plt Count Lymph % (Auto) [place] % (Auto) Lymph # Seg Neutrophils % Seg Neuts % (Manual) Lymphocytes % (Manual) Nucleated RBC % Seg Neutrophils # Seg Neutrophils # Man Lymphocytes # (Manual) Monocytes # (Manual) PT INR APTT D-Dimer POC ABG pH ABG pH POC ABG pCO2 POC ABG pO2 ABG pO2 ABG HCO3 ABG O2 Saturation ABG Base Excess ABG Hemoglobin VBG pH Oxyhemoglobin Sodium Potassium Chloride Carbon Dioxide BUN Creatinine Glucose POC Glucose 149 H 334 H 344 H Lactic Acid Calcium Phosphorus Magnesium Iron TIBC Direct Bilirubin AST ALT Alkaline Phosphatase Total Creatine Kinase CK-MB (CK-2) C-Reactive Protein Total Protein Albumin Vitamin B12 Urine WBC (Auto) Salicylates Acetaminophen Miscellaneous Test Crossmatch 04/18/19 04/18/19 04/18/19 17:43 18:14 23:35 WBC RBC Hgb Hct MCV MCH MCHC RDW Plt Count Lymph % (Auto) [place] % (Auto) Lymph # Seg Neutrophils % Seg Neuts % (Manual) Lymphocytes % (Manual) Nucleated RBC % Seg Neutrophils # Seg Neutrophils # Man Lymphocytes # (Manual) Monocytes # (Manual) PT INR APTT D-Dimer POC ABG pH ABG pH POC ABG pCO2 49.2 H POC ABG pO2 ABG pO2 ABG HCO3 ABG O2 Saturation ABG Base Excess ABG Hemoglobin VBG pH Oxyhemoglobin Sodium Potassium Chloride Carbon Dioxide BUN Creatinine Glucose POC Glucose 289 H 312 H Lactic Acid Calcium Phosphorus Magnesium Iron TIBC Direct Bilirubin AST ALT Alkaline Phosphatase Total Creatine Kinase CK-MB (CK-2) C-Reactive Protein Total Protein Albumin Vitamin B12 Urine WBC (Auto) Salicylates Acetaminophen Miscellaneous Test Crossmatch 04/19/19 04/19/19 04/19/19 04:35 05:55 12:26 WBC RBC Hgb Hct MCV MCH MCHC RDW Plt Count Lymph % (Auto) [place] % (Auto) Lymph # Seg Neutrophils % Seg Neuts % (Manual) Lymphocytes % (Manual) Nucleated RBC % Seg Neutrophils # Seg Neutrophils # Man Lymphocytes # (Manual) Monocytes # (Manual) PT INR APTT D-Dimer POC ABG pH 7.565 H ABG pH POC ABG pCO2 POC ABG pO2 ABG pO2 ABG HCO3 ABG O2 Saturation ABG Base Excess ABG Hemoglobin VBG pH Oxyhemoglobin Sodium Potassium Chloride Carbon Dioxide BUN Creatinine Glucose POC Glucose 172 H 271 H Lactic Acid Calcium Phosphorus Magnesium Iron TIBC Direct Bilirubin AST ALT Alkaline Phosphatase Total Creatine Kinase CK-MB (CK-2) C-Reactive Protein Total Protein Albumin Vitamin B12 Urine WBC (Auto) Salicylates Acetaminophen Miscellaneous Test Crossmatch 04/19/19 04/19/19 04/19/19 17:54 21:10 23:35 WBC RBC Hgb Hct MCV MCH MCHC RDW Plt Count Lymph % (Auto) [place] % (Auto) Lymph # Seg Neutrophils % Seg Neuts % (Manual) Lymphocytes % (Manual) Nucleated RBC % Seg Neutrophils # Seg Neutrophils # Man Lymphocytes # (Manual) Monocytes # (Manual) PT INR APTT D-Dimer POC ABG pH ABG pH POC ABG pCO2 POC ABG pO2 ABG pO2 ABG HCO3 ABG O2 Saturation ABG Base Excess ABG Hemoglobin VBG pH Oxyhemoglobin Sodium Potassium Chloride Carbon Dioxide BUN Creatinine Glucose POC Glucose 229 H 189 H 131 H Lactic Acid Calcium Phosphorus Magnesium Iron TIBC Direct Bilirubin AST ALT Alkaline Phosphatase Total Creatine Kinase CK-MB (CK-2) C-Reactive Protein Total Protein Albumin Vitamin B12 Urine WBC (Auto) Salicylates Acetaminophen Miscellaneous Test Crossmatch 04/20/19 04/20/19 04/20/19 05:42 11:58 17:32 WBC RBC Hgb Hct MCV MCH MCHC RDW Plt Count Lymph % (Auto) [place] % (Auto) Lymph # Seg Neutrophils % Seg Neuts % (Manual) Lymphocytes % (Manual) Nucleated RBC % Seg Neutrophils # Seg Neutrophils # Man Lymphocytes # (Manual) Monocytes # (Manual) PT INR APTT D-Dimer POC ABG pH ABG pH POC ABG pCO2 POC ABG pO2 ABG pO2 ABG HCO3 ABG O2 Saturation ABG Base Excess ABG Hemoglobin VBG pH Oxyhemoglobin Sodium Potassium Chloride Carbon Dioxide BUN Creatinine Glucose POC Glucose 289 H 265 H 232 H Lactic Acid Calcium Phosphorus Magnesium Iron TIBC Direct Bilirubin AST ALT Alkaline Phosphatase Total Creatine Kinase CK-MB (CK-2) C-Reactive Protein Total Protein Albumin Vitamin B12 Urine WBC (Auto) Salicylates Acetaminophen Miscellaneous Test Crossmatch 04/21/19 04/21/19 04/21/19 00:02 05:13 12:41 WBC RBC Hgb Hct MCV MCH MCHC RDW Plt Count Lymph % (Auto) [place] % (Auto) Lymph # Seg Neutrophils % Seg Neuts % (Manual) Lymphocytes % (Manual) Nucleated RBC % Seg Neutrophils # Seg Neutrophils # Man Lymphocytes # (Manual) Monocytes # (Manual) PT INR APTT D-Dimer POC ABG pH ABG pH POC ABG pCO2 POC ABG pO2 ABG pO2 ABG HCO3 ABG O2 Saturation ABG Base Excess ABG Hemoglobin VBG pH Oxyhemoglobin Sodium Potassium Chloride Carbon Dioxide BUN Creatinine Glucose POC Glucose 126 H 233 H 205 H Lactic Acid Calcium Phosphorus Magnesium Iron TIBC Direct Bilirubin AST ALT Alkaline Phosphatase Total Creatine Kinase CK-MB (CK-2) C-Reactive Protein Total Protein Albumin Vitamin B12 Urine WBC (Auto) Salicylates Acetaminophen Miscellaneous Test Crossmatch 04/21/19 04/22/19 04/22/19 23:42 03:57 03:57 WBC 11.5 H RBC 3.44 L Hgb Hct MCV MCH MCHC RDW 16.3 H Plt Count 510 H Lymph % (Auto) [place] % (Auto) Lymph # Seg Neutrophils % Seg Neuts % (Manual) Lymphocytes % (Manual) Nucleated RBC % Seg Neutrophils # Seg Neutrophils # Man Lymphocytes # (Manual) Monocytes # (Manual) PT INR APTT D-Dimer POC ABG pH ABG pH POC ABG pCO2 POC ABG pO2 ABG pO2 ABG HCO3 ABG O2 Saturation ABG Base Excess ABG Hemoglobin VBG pH Oxyhemoglobin Sodium Potassium Chloride 96.3 L Carbon Dioxide BUN Creatinine 0.2 L Glucose 333 H POC Glucose 149 H Lactic Acid Calcium Phosphorus Magnesium Iron TIBC Direct Bilirubin AST 60 H ALT Alkaline Phosphatase 204 H Total Creatine Kinase CK-MB (CK-2) C-Reactive Protein Total Protein Albumin 3.1 L Vitamin B12 Urine WBC (Auto) Salicylates Acetaminophen Miscellaneous Test Crossmatch 04/22/19 04/22/19 04/22/19 05:18 12:03 18:17 WBC RBC Hgb Hct MCV MCH MCHC RDW Plt Count Lymph % (Auto) [place] % (Auto) Lymph # Seg Neutrophils % Seg Neuts % (Manual) Lymphocytes % (Manual) Nucleated RBC % Seg Neutrophils # Seg Neutrophils # Man Lymphocytes # (Manual) Monocytes # (Manual) PT INR APTT D-Dimer POC ABG pH ABG pH POC ABG pCO2 POC ABG pO2 ABG pO2 ABG HCO3 ABG O2 Saturation ABG Base Excess ABG Hemoglobin VBG pH Oxyhemoglobin Sodium Potassium Chloride Carbon Dioxide BUN Creatinine Glucose POC Glucose 345 H 308 H 169 H Lactic Acid Calcium Phosphorus Magnesium Iron TIBC Direct Bilirubin AST ALT Alkaline Phosphatase Total Creatine Kinase CK-MB (CK-2) C-Reactive Protein Total Protein Albumin Vitamin B12 Urine WBC (Auto) Salicylates Acetaminophen Miscellaneous Test Crossmatch 04/23/19 04/23/19 04/23/19 00:14 05:43 11:15 WBC RBC Hgb Hct MCV MCH MCHC RDW Plt Count Lymph % (Auto) [place] % (Auto) Lymph # Seg Neutrophils % Seg Neuts % (Manual) Lymphocytes % (Manual) Nucleated RBC % Seg Neutrophils # Seg Neutrophils # Man Lymphocytes # (Manual) Monocytes # (Manual) PT INR APTT D-Dimer POC ABG pH ABG pH POC ABG pCO2 POC ABG pO2 ABG pO2 ABG HCO3 ABG O2 Saturation ABG Base Excess ABG Hemoglobin VBG pH Oxyhemoglobin Sodium Potassium Chloride Carbon Dioxide BUN Creatinine Glucose POC Glucose 192 H 260 H 186 H Lactic Acid Calcium Phosphorus Magnesium Iron TIBC Direct Bilirubin AST ALT Alkaline Phosphatase Total Creatine Kinase CK-MB (CK-2) C-Reactive Protein Total Protein Albumin Vitamin B12 Urine WBC (Auto) Salicylates Acetaminophen Miscellaneous Test Crossmatch 04/23/19 04/23/19 04/24/19 15:44 21:30 00:09 WBC RBC Hgb Hct MCV MCH MCHC RDW Plt Count Lymph % (Auto) [place] % (Auto) Lymph # Seg Neutrophils % Seg Neuts % (Manual) Lymphocytes % (Manual) Nucleated RBC % Seg Neutrophils # Seg Neutrophils # Man Lymphocytes # (Manual) Monocytes # (Manual) PT INR APTT D-Dimer POC ABG pH ABG pH POC ABG pCO2 POC ABG pO2 ABG pO2 ABG HCO3 ABG O2 Saturation ABG Base Excess ABG Hemoglobin VBG pH Oxyhemoglobin Sodium Potassium Chloride Carbon Dioxide BUN Creatinine Glucose POC Glucose 164 H 407 H 280 H Lactic Acid Calcium Phosphorus Magnesium Iron TIBC Direct Bilirubin AST ALT Alkaline Phosphatase Total Creatine Kinase CK-MB (CK-2) C-Reactive Protein Total Protein Albumin Vitamin B12 Urine WBC (Auto) Salicylates Acetaminophen Miscellaneous Test Crossmatch 04/24/19 04/24/19 04/24/19 06:01 06:39 14:51 WBC RBC Hgb Hct MCV MCH MCHC RDW Plt Count Lymph % (Auto) [place] % (Auto) Lymph # Seg Neutrophils % Seg Neuts % (Manual) Lymphocytes % (Manual) Nucleated RBC % Seg Neutrophils # Seg Neutrophils # Man Lymphocytes # (Manual) Monocytes # (Manual) PT INR APTT D-Dimer POC ABG pH ABG pH POC ABG pCO2 POC ABG pO2 ABG pO2 ABG HCO3 ABG O2 Saturation ABG Base Excess ABG Hemoglobin VBG pH Oxyhemoglobin Sodium Potassium Chloride Carbon Dioxide BUN Creatinine Glucose POC Glucose 65 L 125 H 207 H Lactic Acid Calcium Phosphorus Magnesium Iron TIBC Direct Bilirubin AST ALT Alkaline Phosphatase Total Creatine Kinase CK-MB (CK-2) C-Reactive Protein Total Protein Albumin Vitamin B12 Urine WBC (Auto) Salicylates Acetaminophen Miscellaneous Test Crossmatch 04/24/19 04/25/19 04/25/19 18:03 01:46 05:56 WBC RBC Hgb Hct MCV MCH MCHC RDW Plt Count Lymph % (Auto) [place] % (Auto) Lymph # Seg Neutrophils % Seg Neuts % (Manual) Lymphocytes % (Manual) Nucleated RBC % Seg Neutrophils # Seg Neutrophils # Man Lymphocytes # (Manual) Monocytes # (Manual) PT INR APTT D-Dimer POC ABG pH ABG pH POC ABG pCO2 POC ABG pO2 ABG pO2 ABG HCO3 ABG O2 Saturation ABG Base Excess ABG Hemoglobin VBG pH Oxyhemoglobin Sodium Potassium Chloride Carbon Dioxide BUN Creatinine Glucose POC Glucose 140 H 125 H 208 H Lactic Acid Calcium Phosphorus Magnesium Iron TIBC Direct Bilirubin AST ALT Alkaline Phosphatase Total Creatine Kinase CK-MB (CK-2) C-Reactive Protein Total Protein Albumin Vitamin B12 Urine WBC (Auto) Salicylates Acetaminophen Miscellaneous Test Crossmatch 04/25/19 04/25/19 04/25/19 08:12 13:06 18:04 WBC RBC Hgb Hct MCV MCH MCHC RDW Plt Count Lymph % (Auto) [place] % (Auto) Lymph # Seg Neutrophils % Seg Neuts % (Manual) Lymphocytes % (Manual) Nucleated RBC % Seg Neutrophils # Seg Neutrophils # Man Lymphocytes # (Manual) Monocytes # (Manual) PT INR APTT D-Dimer POC ABG pH ABG pH POC ABG pCO2 POC ABG pO2 ABG pO2 ABG HCO3 ABG O2 Saturation ABG Base Excess ABG Hemoglobin VBG pH Oxyhemoglobin Sodium Potassium Chloride Carbon Dioxide BUN Creatinine Glucose POC Glucose 127 H 147 H 340 H Lactic Acid Calcium Phosphorus Magnesium Iron TIBC Direct Bilirubin AST ALT Alkaline Phosphatase Total Creatine Kinase CK-MB (CK-2) C-Reactive Protein Total Protein Albumin Vitamin B12 Urine WBC (Auto) Salicylates Acetaminophen Miscellaneous Test Crossmatch 04/26/19 04/26/19 04/26/19 00:16 05:15 11:26 WBC RBC Hgb Hct MCV MCH MCHC RDW Plt Count Lymph % (Auto) [place] % (Auto) Lymph # Seg Neutrophils % Seg Neuts % (Manual) Lymphocytes % (Manual) Nucleated RBC % Seg Neutrophils # Seg Neutrophils # Man Lymphocytes # (Manual) Monocytes # (Manual) PT INR APTT D-Dimer POC ABG pH ABG pH POC ABG pCO2 POC ABG pO2 ABG pO2 ABG HCO3 ABG O2 Saturation ABG Base Excess ABG Hemoglobin VBG pH Oxyhemoglobin Sodium Potassium Chloride Carbon Dioxide BUN Creatinine Glucose POC Glucose 137 H 136 H 365 H Lactic Acid Calcium Phosphorus Magnesium Iron TIBC Direct Bilirubin AST ALT Alkaline Phosphatase Total Creatine Kinase CK-MB (CK-2) C-Reactive Protein Total Protein Albumin Vitamin B12 Urine WBC (Auto) Salicylates Acetaminophen Miscellaneous Test Crossmatch 04/26/19 04/26/19 04/27/19 18:03 21:30 06:14 WBC RBC Hgb Hct MCV MCH MCHC RDW Plt Count Lymph % (Auto) [place] % (Auto) Lymph # Seg Neutrophils % Seg Neuts % (Manual) Lymphocytes % (Manual) Nucleated RBC % Seg Neutrophils # Seg Neutrophils # Man Lymphocytes # (Manual) Monocytes # (Manual) PT INR APTT D-Dimer POC ABG pH ABG pH POC ABG pCO2 POC ABG pO2 ABG pO2 ABG HCO3 ABG O2 Saturation ABG Base Excess ABG Hemoglobin VBG pH Oxyhemoglobin Sodium Potassium Chloride Carbon Dioxide BUN Creatinine Glucose POC Glucose 124 H 231 H 199 H Lactic Acid Calcium Phosphorus Magnesium Iron TIBC Direct Bilirubin AST ALT Alkaline Phosphatase Total Creatine Kinase CK-MB (CK-2) C-Reactive Protein Total Protein Albumin Vitamin B12 Urine WBC (Auto) Salicylates Acetaminophen Miscellaneous Test Crossmatch 04/27/19 04/27/19 04/28/19 16:39 22:22 05:55 WBC RBC Hgb Hct MCV MCH MCHC RDW Plt Count Lymph % (Auto) [place] % (Auto) Lymph # Seg Neutrophils % Seg Neuts % (Manual) Lymphocytes % (Manual) Nucleated RBC % Seg Neutrophils # Seg Neutrophils # Man Lymphocytes # (Manual) Monocytes # (Manual) PT INR APTT D-Dimer POC ABG pH ABG pH POC ABG pCO2 POC ABG pO2 ABG pO2 ABG HCO3 ABG O2 Saturation ABG Base Excess ABG Hemoglobin VBG pH Oxyhemoglobin Sodium Potassium Chloride Carbon Dioxide BUN Creatinine Glucose POC Glucose 171 H 183 H 207 H Lactic Acid Calcium Phosphorus Magnesium Iron TIBC Direct Bilirubin AST ALT Alkaline Phosphatase Total Creatine Kinase CK-MB (CK-2) C-Reactive Protein Total Protein Albumin Vitamin B12 Urine WBC (Auto) Salicylates Acetaminophen Miscellaneous Test Crossmatch 04/28/19 04/28/19 04/29/19 12:30 17:07 00:03 WBC RBC Hgb Hct MCV MCH MCHC RDW Plt Count Lymph % (Auto) [place] % (Auto) Lymph # Seg Neutrophils % Seg Neuts % (Manual) Lymphocytes % (Manual) Nucleated RBC % Seg Neutrophils # Seg Neutrophils # Man Lymphocytes # (Manual) Monocytes # (Manual) PT INR APTT D-Dimer POC ABG pH ABG pH POC ABG pCO2 POC ABG pO2 ABG pO2 ABG HCO3 ABG O2 Saturation ABG Base Excess ABG Hemoglobin VBG pH Oxyhemoglobin Sodium Potassium Chloride Carbon Dioxide BUN Creatinine Glucose POC Glucose 199 H 233 H 217 H Lactic Acid Calcium Phosphorus Magnesium Iron TIBC Direct Bilirubin AST ALT Alkaline Phosphatase Total Creatine Kinase CK-MB (CK-2) C-Reactive Protein Total Protein Albumin Vitamin B12 Urine WBC (Auto) Salicylates Acetaminophen Miscellaneous Test Crossmatch 04/29/19 04/29/19 04/29/19 05:51 09:43 09:43 WBC RBC 3.36 L Hgb Hct MCV MCH MCHC RDW 16.3 H Plt Count Lymph % (Auto) 11.1 L [place] % (Auto) Lymph # Seg Neutrophils % 81.4 H Seg Neuts % (Manual) Lymphocytes % (Manual) Nucleated RBC % Seg Neutrophils # 9.0 H Seg Neutrophils # Man Lymphocytes # (Manual) Monocytes # (Manual) PT INR APTT D-Dimer POC ABG pH ABG pH POC ABG pCO2 POC ABG pO2 ABG pO2 ABG HCO3 ABG O2 Saturation ABG Base Excess ABG Hemoglobin VBG pH Oxyhemoglobin Sodium Potassium Chloride Carbon Dioxide BUN 21 H Creatinine 0.3 L Glucose 316 H POC Glucose 149 H Lactic Acid Calcium Phosphorus Magnesium Iron TIBC Direct Bilirubin AST ALT Alkaline Phosphatase Total Creatine Kinase CK-MB (CK-2) C-Reactive Protein Total Protein Albumin Vitamin B12 Urine WBC (Auto) Salicylates Acetaminophen Miscellaneous Test Crossmatch 04/29/19 04/29/19 04/29/19 12:28 18:02 23:49 WBC RBC Hgb Hct MCV MCH MCHC RDW Plt Count Lymph % (Auto) [place] % (Auto) Lymph # Seg Neutrophils % Seg Neuts % (Manual) Lymphocytes % (Manual) Nucleated RBC % Seg Neutrophils # Seg Neutrophils # Man Lymphocytes # (Manual) Monocytes # (Manual) PT INR APTT D-Dimer POC ABG pH ABG pH POC ABG pCO2 POC ABG pO2 ABG pO2 ABG HCO3 ABG O2 Saturation ABG Base Excess ABG Hemoglobin VBG pH Oxyhemoglobin Sodium Potassium Chloride Carbon Dioxide BUN Creatinine Glucose POC Glucose 368 H 185 H 137 H Lactic Acid Calcium Phosphorus Magnesium Iron TIBC Direct Bilirubin AST ALT Alkaline Phosphatase Total Creatine Kinase CK-MB (CK-2) C-Reactive Protein Total Protein Albumin Vitamin B12 Urine WBC (Auto) Salicylates Acetaminophen Miscellaneous Test Crossmatch 04/30/19 04/30/19 04/30/19 05:56 09:08 09:08 WBC RBC 3.48 L Hgb Hct MCV MCH MCHC RDW 15.9 H Plt Count Lymph % (Auto) [place] % (Auto) Lymph # Seg Neutrophils % 73.7 H Seg Neuts % (Manual) Lymphocytes % (Manual) Nucleated RBC % Seg Neutrophils # Seg Neutrophils # Man Lymphocytes # (Manual) Monocytes # (Manual) PT INR APTT D-Dimer POC ABG pH ABG pH POC ABG pCO2 POC ABG pO2 ABG pO2 ABG HCO3 ABG O2 Saturation ABG Base Excess ABG Hemoglobin VBG pH Oxyhemoglobin Sodium Potassium Chloride Carbon Dioxide BUN 25 H Creatinine 0.3 L Glucose 290 H POC Glucose 318 H Lactic Acid Calcium Phosphorus Magnesium Iron TIBC Direct Bilirubin AST ALT Alkaline Phosphatase Total Creatine Kinase CK-MB (CK-2) C-Reactive Protein Total Protein Albumin Vitamin B12 Urine WBC (Auto) Salicylates Acetaminophen Miscellaneous Test Crossmatch 04/30/19 04/30/19 04/30/19 11:32 17:19 21:36 WBC RBC Hgb Hct MCV MCH MCHC RDW Plt Count Lymph % (Auto) [place] % (Auto) Lymph # Seg Neutrophils % Seg Neuts % (Manual) Lymphocytes % (Manual) Nucleated RBC % Seg Neutrophils # Seg Neutrophils # Man Lymphocytes # (Manual) Monocytes # (Manual) PT INR APTT D-Dimer POC ABG pH ABG pH POC ABG pCO2 POC ABG pO2 ABG pO2 ABG HCO3 ABG O2 Saturation ABG Base Excess ABG Hemoglobin VBG pH Oxyhemoglobin Sodium Potassium Chloride Carbon Dioxide BUN Creatinine Glucose POC Glucose 225 H 110 H 371 H Lactic Acid Calcium Phosphorus Magnesium Iron TIBC Direct Bilirubin AST ALT Alkaline Phosphatase Total Creatine Kinase CK-MB (CK-2) C-Reactive Protein Total Protein Albumin Vitamin B12 Urine WBC (Auto) Salicylates Acetaminophen Miscellaneous Test Crossmatch 04/30/19 05/01/19 05/01/19 Unknown 05:29 11:44 WBC RBC Hgb Hct MCV MCH MCHC RDW Plt Count Lymph % (Auto) [place] % (Auto) Lymph # Seg Neutrophils % Seg Neuts % (Manual) Lymphocytes % (Manual) Nucleated RBC % Seg Neutrophils # Seg Neutrophils # Man Lymphocytes # (Manual) Monocytes # (Manual) PT INR APTT D-Dimer POC ABG pH ABG pH POC ABG pCO2 POC ABG pO2 ABG pO2 ABG HCO3 ABG O2 Saturation ABG Base Excess ABG Hemoglobin VBG pH Oxyhemoglobin Sodium Potassium Chloride Carbon Dioxide BUN Creatinine Glucose POC Glucose 386 H 227 H Lactic Acid Calcium Phosphorus Magnesium Iron TIBC Direct Bilirubin AST ALT Alkaline Phosphatase Total Creatine Kinase CK-MB (CK-2) C-Reactive Protein Total Protein Albumin Vitamin B12 Urine WBC (Auto) 17.0 H Salicylates Acetaminophen Miscellaneous Test Crossmatch 05/02/19 05/02/19 05:51 11:21 WBC RBC Hgb Hct MCV MCH MCHC RDW Plt Count Lymph % (Auto) [place] % (Auto) Lymph # Seg Neutrophils % Seg Neuts % (Manual) Lymphocytes % (Manual) Nucleated RBC % Seg Neutrophils # Seg Neutrophils # Man Lymphocytes # (Manual) Monocytes # (Manual) PT INR APTT D-Dimer POC ABG pH ABG pH POC ABG pCO2 POC ABG pO2 ABG pO2 ABG HCO3 ABG O2 Saturation ABG Base Excess ABG Hemoglobin VBG pH Oxyhemoglobin Sodium Potassium Chloride Carbon Dioxide BUN Creatinine Glucose POC Glucose 280 H 191 H Lactic Acid Calcium Phosphorus Magnesium Iron TIBC Direct Bilirubin AST ALT Alkaline Phosphatase Total Creatine Kinase CK-MB (CK-2) C-Reactive Protein Total Protein Albumin Vitamin B12 Urine WBC (Auto) Salicylates Acetaminophen Miscellaneous Test Crossmatch Chest x-ray: report reviewed (No acute findings), image reviewed Allied health notes reviewed: nursing
[2019-05-02] MEDS: DURAGESIC TD SCH ×2 (14:20→16:20)
[2019-05-02] MEDS: TRANSDERM-SCOP TD SCH (16:25)
[2019-05-03] MEDS: LANTUS SUB-Q SCH ×2 (00:23→21:08)
[2019-05-03] MEDS: ROBINUL FEEDTUBE SCH ×4 (00:24→21:06)
[2019-05-03 05:28] LABS: Basophils % (Auto) 0.6 % (0.0-1.8); Eosinophils # (Auto) 0.2 K/mm3 (0.0-0.4); Eosinophils % (Auto) 2.6 % (0.0-4.3); Hemoglobin 11.1 gm/dl (10.1-14.3); Lymphocytes # (Auto) 1.7 K/mm3 (1.2-5.4); Lymphocytes % (Auto) 27.8 % (13.4-35.0); Mean Corpuscular HGB Conc 34 % (30-34); Mean Corpuscular Volume 96 fl (79-97); Monocytes # (Auto) 0.5 K/mm3 (0.0-0.8); Monocytes % (Auto) 7.6 % (0.0-7.3); Platelet Count 373 K/mm3 (140-440); Red Blood Count 3.45 M/mm3 (3.65-5.03); Red Cell Distribution Width 15.5 % (13.2-15.2)
[2019-05-03 05:51] LABS: BUN/Creatinine Ratio 115; Blood Urea Nitrogen 23 mg/dL (7-17); Calcium 9.5 mg/dL (8.4-10.2); Hemolysis Index 0
[2019-05-03] MEDS: HumaLOG SUB-Q SCH ×8 (06:19→23:56)
[2019-05-03] MEDS: ROCEPHIN/NS 1 GM/50 ML 1 GM/50 ML BAG IV SCH (09:44)
[2019-05-03] MEDS: ENOXAPARIN SUB-Q SCH (09:44)
[2019-05-03] MEDS: PEPCID PO SCH ×2 (09:45→21:06)
[2019-05-03] MEDS: METOPROLOL PO SCH ×2 (09:45→21:06)
[2019-05-03] MEDS: KEPPRA PO SCH ×2 (09:45→21:06)
--- NOTE | 2019-05-03 12:17 | Progress Note ---
Assessment and Plan Assessment and plan: Patient is a 29 year old woman with a history of diabetes was brought to the emergency room following a cardiac arrest. Her last well-known time was 10:30 in the morning of presentation, she was traveling with a friend, she was unresponsive in the back seat. EMS was called, CPR was started and continued here in the emergency room. Patient was intubated in the ER, noted hypotensive started on dobutamine, epinephrine and Levophed drip, given IV fluids, found to be in DKA with BG ~2200, several metabolic derangements - placed on insulin drip and admitted to ICU. BP improved and she was weaned off pressors. Pt off pressors and extubated. Transferred to floor awaiting placement Uncontrolled DM type 1 with hyperglycemia - cont. basal insulin Lantus - cont. SSI - Blood sugar is uncontrolled and increase Lantus and add 10 units of Humalog before meals Acute respiratory failure s/p intubated, off vent - s/p trach and peg on 5 L of oxygen - Tracheostomy re-adjusted on 04/17/19 - on vent, cont nebs, - s/p Trach - Pulm following - Aspiration precautions - VAP bundle Acute anoxic encephalopathy, POA - from cardiac arrest - MR concerning for anoxic Brain injury Cardiac arrest s/p resuscitation - likely 2/2 severe hyperglycemia - preserved EF on 2D echo Generalized Anasacara -Given a dose of Bumex s/p DKA, severe Shock hypotensive +/- sepsis - resolved Now off pressors. Was on vasopressin, Levophed, Phenylephrine Sepsis with possible aspiration PNA - evident on CXR on admission with left sided infiltrates - Competed abx - Abx discontinued following notation that no evidence of liver lesion not consistent with infection per ID - Leucocytosis and thrombocytosis are likely reactive from hepatic subcapsular hematoma UTI, Patient had low-grade temp 04/30/19 - No fever today -UA suggestive of UTI -Urine culture showed enterococcus faecalis, pending sensitivity -Patient started on Rocephin on 05/01/19 Head lice - multiple dosing of Permethin given, resolved Acute renal failure, likely vasomotor nephropathy - resolved Anemia, acute on chronic - no sign of blood loss - s/p 2 Units PRBC transfused Hyperkalemia, resolved with fluid and insulin Hypernatremia Resolved hypokalemia, resolved Shock liver with elevated LFT and Coagulopathy - due to cardiac arrest and hypotension - cont to monitor Liver lesion ID Physician following Discontinued abx, not consistent with infection as noted above Hypermagnesemia - monitor levels as needed Hyperphosphatemia -cont to monitor, improved Stage 1 sacral ulcer, poa - upper ext blisters - pressure ulcer prevention strategies - wound care VTE Prophylaxis with Lovenox Poor prognosis DNR status Disposition: continue inpatient care, await placement in [place], [place] manager photography in contact with the family Hospice transfer History Interval history: Patient was seen and evaluated during morning rounds as a bedside Patient open her eyes Patient didn't have any fever overnight Hospitalist Physical - Physical exam Narrative exam: Patient is on 5 L of oxygen through the trach. The patient appeared well nourished and normally developed. Vital signs as documented. Head exam is unremarkable. No scleral icterus . Neck is without jugular venous distension, thyromegaly, or carotid bruits. Lungs are clear to auscultation. Cardiac exam reveals regular rate and Rhythm. Abdominal exam reveals normal bowel sounds. Extremities are nonedematous and both femoral and pedal pulses are normal. TEST CAR DRIVER: Patient open her eyes but doesn't follow commands. - Constitutional Vitals: Temp Pulse Resp BP Pulse Ox 99.3 F 120 H 16 127/91 99 05/03/19 05:09 05/03/19 05:09 05/03/19 05:09 05/03/19 05:09 05/03/19 08:20 General appearance: Present: other (intubated) Results - Labs CBC & Chem 7: 05/03/19 04:57 05/03/19 04:57 Labs: Laboratory Last Values WBC 6.1 K/mm3 (4.5-11.0) 05/03/19 04:57 RBC 3.45 M/mm3 (3.65-5.03) L 05/03/19 04:57 Hgb 11.1 gm/dl (10.1-14.3) 05/03/19 04:57 Hct 33.0 % (30.3-42.9) 05/03/19 04:57 MCV 96 fl (79-97) 05/03/19 04:57 MCH 32 pg (28-32) 05/03/19 04:57 MCHC 34 % (30-34) 05/03/19 04:57 RDW 15.5 % (13.2-15.2) H 05/03/19 04:57 Plt Count 373 K/mm3 (140-440) 05/03/19 04:57 Lymph % (Auto) 27.8 % (13.4-35.0) 05/03/19 04:57 Hand % (Auto) 7.6 % (0.0-7.3) H 05/03/19 04:57 Eos % (Auto) 2.6 % (0.0-4.3) 05/03/19 04:57 Baso % (Auto) 0.6 % (0.0-1.8) 05/03/19 04:57 Lymph # 1.7 K/mm3 (1.2-5.4) 05/03/19 04:57 Hand # 0.5 K/mm3 (0.0-0.8) 05/03/19 04:57 Eos # 0.2 K/mm3 (0.0-0.4) 05/03/19 04:57 Baso # 0.0 K/mm3 (0.0-0.1) 05/03/19 04:57 Add Manual Diff Complete 04/01/19 05:01 Total Counted 100 04/01/19 05:01 Seg Neutrophils % 61.4 % (40.0-70.0) 05/03/19 04:57 Seg Neuts % (Manual) 71.0 % (40.0-70.0) H 04/01/19 05:01 Band Neutrophils % 0 % 04/01/19 05:01 Lymphocytes % (Manual) 20.0 % (13.4-35.0) 04/01/19 05:01 Reactive Lymphs % (Man) 0 % 04/01/19 05:01 Monocytes % (Manual) 7.0 % (0.0-7.3) 04/01/19 05:01 Eosinophils % (Manual) 2.0 % (0.0-4.3) 04/01/19 05:01 Basophils % (Manual) 0 % (0.0-1.8) 04/01/19 05:01 Metamyelocytes % 0 % 04/01/19 05:01 Myelocytes % 0 % 04/01/19 05:01 Promyelocytes % 0 % 04/01/19 05:01 Blast Cells % 0 % 04/01/19 05:01 Nucleated RBC % Not Reportable 04/01/19 05:01 Seg Neutrophils # 3.7 K/mm3 (1.8-7.7) 05/03/19 04:57 Seg Neutrophils # Man 4.8 K/mm3 (1.8-7.7) 04/01/19 05:01 Band Neutrophils # 0.0 K/mm3 04/01/19 05:01 Lymphocytes # (Manual) 1.4 K/mm3 (1.2-5.4) 04/01/19 05:01 Abs React Lymphs (Man) 0.0 K/mm3 04/01/19 05:01 Monocytes # (Manual) 0.5 K/mm3 (0.0-0.8) 04/01/19 05:01 Eosinophils # (Manual) 0.1 K/mm3 (0.0-0.4) 04/01/19 05:01 Basophils # (Manual) 0.0 K/mm3 (0.0-0.1) 04/01/19 05:01 Metamyelocytes # 0.0 K/mm3 04/01/19 05:01 Myelocytes # 0.0 K/mm3 04/01/19 05:01 Promyelocytes # 0.0 K/mm3 04/01/19 05:01 Blast Cells # 0.0 K/mm3 04/01/19 05:01 WBC Morphology Not Reportable 04/01/19 05:01 Hypersegmented Neuts Not Reportable 04/01/19 05:01 Hyposegmented Neuts Not Reportable 04/01/19 05:01 Hypogranular Neuts Not Reportable 04/01/19 05:01 Smudge Cells Not Reportable 04/01/19 05:01 Toxic Granulation Not Reportable 04/01/19 05:01 Toxic Vacuolation Not Reportable 04/01/19 05:01 Dohle Bodies Not Reportable 04/01/19 05:01 Pelger-Huet Anomaly Not Reportable 04/01/19 05:01 Wong Rods Not Reportable 04/01/19 05:01 Platelet Estimate Not Reportable 04/01/19 05:01 Clumped Platelets Not Reportable 04/01/19 05:01 Plt Clumps, EDTA Not Reportable 04/01/19 05:01 Large Platelets Not Reportable 04/01/19 05:01 Giant Platelets Not Reportable 04/01/19 05:01 Platelet Satelliting Not Reportable 04/01/19 05:01 Plt Morphology Comment Not Reportable 04/01/19 05:01 RBC Morphology Normal 04/01/19 05:01 Dimorphic RBCs Not Reportable 04/01/19 05:01 Polychromasia Not Reportable 04/01/19 05:01 Hypochromasia Not Reportable 04/01/19 05:01 Poikilocytosis Not Reportable 04/01/19 05:01 Anisocytosis Not Reportable 04/01/19 05:01 Microcytosis Not Reportable 04/01/19 05:01 Macrocytosis Not Reportable 04/01/19 05:01 Spherocytes Not Reportable 04/01/19 05:01 Pappenheimer Bodies Not Reportable 04/01/19 05:01 Sickle Cells Not Reportable 04/01/19 05:01 Target Cells Not Reportable 04/01/19 05:01 Tear Drop Cells Not Reportable 04/01/19 05:01 Ovalocytes Not Reportable 04/01/19 05:01 Helmet Cells Not Reportable 04/01/19 05:01 [place] Bodies Not Reportable 04/01/19 05:01 Mcdougal Rings Not Reportable 04/01/19 05:01 [place] Cells Not Reportable 04/01/19 05:01 Bite Cells Not Reportable 04/01/19 05:01 Crenated Cell Not Reportable 04/01/19 05:01 Elliptocytes Not Reportable 04/01/19 05:01 Acanthocytes (Spur) Not Reportable 04/01/19 05:01 Rouleaux Not Reportable 04/01/19 05:01 Hemoglobin C Crystals Not Reportable 04/01/19 05:01 Schistocytes Not Reportable 04/01/19 05:01 Malaria parasites Not Reportable 04/01/19 05:01 Benja Bodies Not Reportable 04/01/19 05:01 Hem Pathologist Commnt No 04/01/19 05:01 PT 13.9 Sec. (12.2-14.9) 04/01/19 17:14 INR 1.10 (0.87-1.13) 04/01/19 17:14 APTT 74.5 Sec. (24.2-36.6) H* 03/29/19 19:20 Fibrinogen 313 mg/dl (211-480) 04/01/19 17:14 D-Dimer 4526.86 ng/mlDDU (0-234) H 04/06/19 00:06 Heparin Anti-Xa, Unfract Negative (Negative) 03/31/19 15:00 POC ABG pH 7.565 (7.35-7.45) H 04/19/19 04:35 ABG pH 7.396 pH Units (7.350-7.450) 04/03/19 05:35 POC ABG pCO2 36.2 (35-45) 04/19/19 04:35 ABG pCO2 32.2 mm Hg 04/03/19 05:35 POC ABG pO2 88 (80-105) 04/19/19 04:35 ABG pO2 97.7 mm Hg (80.0-90.0) H 04/03/19 05:35 POC ABG HCO3 32.8 (22-26 mml/L) 04/19/19 04:35 ABG HCO3 19.3 mmol/L (20.0-26.0) L 04/03/19 05:35 POC ABG Total CO2 34 (23-27mmol/L) 04/19/19 04:35 POC ABG O2 Sat 98 04/19/19 04:35 ABG O2 Saturation 97.6 % (95.0-99.0) 04/03/19 05:35 ABG O2 Content 10.9 (0.0-44) 04/03/19 05:35 POC ABG Base Excess 11 ((-2) - (+3)mmol/L) 04/19/19 04:35 ABG Base Excess -5.0 mmol/L (-2.0-3.0) L 04/03/19 05:35 ABG Hemoglobin 8.0 gm/dl (12.0-16.0) L 04/03/19 05:35 ABG Carboxyhemoglobin 2.1 % (0.0-5.0) 04/03/19 05:35 ABG Methemoglobin 0.5 % (0.0-1.5) 04/03/19 05:35 VBG pH 6.800 (7.320-7.420) L* 03/29/19 19:47 Oxyhemoglobin 95.1 % (95.0-99.0) 04/03/19 05:35 FiO2 40 % 04/19/19 04:35 Sodium 144 mmol/L (137-145) 05/03/19 04:57 Potassium 4.1 mmol/L (3.6-5.0) 05/03/19 04:57 Chloride 103.8 mmol/L (98-107) 05/03/19 04:57 Carbon Dioxide 29 mmol/L (22-30) 05/03/19 04:57 Anion Gap 15 mmol/L 05/03/19 04:57 BUN 23 mg/dL (7-17) H 05/03/19 04:57 Creatinine 0.2 mg/dL (0.7-1.2) L 05/03/19 04:57 Estimated GFR > 60 ml/min 05/03/19 04:57 BUN/Creatinine Ratio 115 % 05/03/19 04:57 Glucose 101 mg/dL (65-100) H 05/03/19 04:57 POC Glucose 131 (70-105) H 05/03/19 06:20 Lactic Acid 3.30 mmol/L (0.7-2.0) H* 03/31/19 07:50 Calcium 9.5 mg/dL (8.4-10.2) 05/03/19 04:57 Phosphorus 4.10 mg/dL (2.5-4.5) 04/09/19 16:25 Magnesium 1.70 mg/dL (1.7-2.3) 04/22/19 03:57 Iron 26 ug/dL (37-170) L 03/31/19 08:20 TIBC 193 mcg/dL (250-450) L 03/31/19 08:20 Total Bilirubin 0.20 mg/dL (0.1-1.2) 04/22/19 03:57 Direct Bilirubin 0.2 mg/dL (0-0.2) 04/02/19 07:48 Indirect Bilirubin 0.5 mg/dL 04/02/19 07:48 AST 60 units/L (5-40) H 04/22/19 03:57 ALT 31 units/L (7-56) 04/22/19 03:57 Alkaline Phosphatase 204 units/L (35-129) H 04/22/19 03:57 Total Creatine Kinase 2465 units/L (30-135) H 03/30/19 05:26 CK-MB (CK-2) 52.7 ng/mL (0.0-4.0) H 03/30/19 05:26 CK-MB (CK-2) Rel Index 2.1 (0-4) 03/30/19 05:26 Troponin T < 0.010 ng/mL (0.00-0.029) 04/06/19 05:20 C-Reactive Protein 2.40 mg/dL (0.00-1.30) H 03/30/19 12:57 Total Protein 7.6 g/dL (6.3-8.2) 04/22/19 03:57 Albumin 3.1 g/dL (3.9-5) L 04/22/19 03:57 Albumin/Globulin Ratio 0.7 % 04/22/19 03:57 Serotonin Release Assay See scanned result 03/31/19 15:00 Vitamin B12 > 2000 pg/mL (211-911) H 03/31/19 08:20 Folate > 20 ng/mL (7.3-26.0) 03/31/19 08:20 HCG, Qual Negative (Negative) 03/29/19 19:20 Urine Color Yellow (Yellow) 05/02/19 07:08 Urine Turbidity Slightly-cloudy (Clear) 05/02/19 07:08 Urine pH 6.0 (5.0-7.0) 05/02/19 07:08 Ur Specific [place] 1.020 (1.003-1.030) 05/02/19 07:08 Urine Protein <15 mg/dl mg/dL (Negative) 05/02/19 07:08 Urine Glucose (UA) >=500 mg/dL (Negative) 05/02/19 07:08 Urine Ketones Neg mg/dL (Negative) 05/02/19 07:08 Urine Blood Neg (Negative) 05/02/19 07:08 Urine Nitrite Neg (Negative) 05/02/19 07:08 Urine Bilirubin Neg (Negative) 05/02/19 07:08 Urine Urobilinogen < 2.0 mg/dL (<2.0) 05/02/19 07:08 Ur Leukocyte Esterase Neg (Negative) 05/02/19 07:08 Urine WBC (Auto) 6.0 /HPF (0.0-6.0) 05/02/19 07:08 Urine RBC (Auto) 1.0 /HPF (0.0-6.0) 05/02/19 07:08 U Epithel Cells (Auto) 4.0 /HPF (0-13.0) 04/30/19 Unknown Urine Bacteria (Auto) 1+ /HPF (Negative) 05/02/19 07:08 Amorphous Crystals Few 05/02/19 07:08 Urine Mucus Few /HPF 05/02/19 07:08 Salicylates 0.8 mg/dL (2.8-20.0) L 03/30/19 Unknown Urine Opiates Screen Presumptive negative 03/29/19 23:10 Urine Methadone Screen Presumptive negative 03/29/19 23:10 Acetaminophen < 5.0 ug/mL (10.0-30.0) L 03/30/19 Unknown Ur Barbiturates Screen Presumptive negative 03/29/19 23:10 Ur Phencyclidine Scrn Presumptive negative 03/29/19 23:10 Ur Amphetamines Screen Presumptive negative 03/29/19 23:10 U Benzodiazepines Scrn Presumptive negative 03/29/19 23:10 Urine Cocaine Screen Presumptive negative 03/29/19 23:10 U Marijuana (THC) Screen Presumptive negative 03/29/19 23:10 Drugs of Abuse Note Disclamer 03/29/19 23:10 Heparin-induced Plt Ab Negative (Negative) 03/31/19 15:00 UF Heparin High Dose 0 % Release 03/31/19 15:00 FABIAN UFH Low Dose 0.1 0 % Release 03/31/19 15:00 FABIAN UFH Low Dose 0.5 0 % Release 03/31/19 15:00 Hepatitis A IgM Ab Non-reactive (NonReactive) 03/30/19 Unknown Hep Bs Antigen Non-reactive (Negative) 03/30/19 Unknown Hep B Core IgM Ab Non-reactive (NonReactive) 03/30/19 Unknown Hepatitis C Antibody Non-reactive (NonReactive) 03/30/19 Unknown Miscellaneous Test Flexitest 1 H 03/30/19 14:00 Blood Type O POSITIVE 03/30/19 03:30 Antibody Screen Negative 03/30/19 03:30 Crossmatch See Detail 03/30/19 03:30 Active Medications - Current Medications Current Medications: Generic Name Dose Route Start Last Admin Trade Name Freq PRN Reason Stop Dose Admin Acetaminophen 650 mg 03/29/19 23:34 04/30/19 06:51 Tylenol PO 650 mg Q4H PRN Administration Pain MILD(1-3)/Fever >100.5/WARE Lipase/Protease/Amylase 1 each 04/02/19 11:44 Pancreaze 10,500 Unit FEEDTUBE PRN PRN For Clogged Feeding Tube Dextrose 50 ml 04/21/19 12:03 D50w (25gm) Syringe IV PRN PRN Hypoglycemia Enoxaparin Sodium 40 mg 04/14/19 10:00 05/03/19 09:44 Lovenox SUB-Q 40 mg QDAY@1000 ZAMZAM Administration Famotidine 20 mg 04/02/19 10:00 05/03/19 09:45 Pepcid PO 20 mg BID ZAMZAM Administration Fentanyl 25 mcg 04/14/19 14:00 05/02/19 16:20 Duragesic TD 25 mcg Q3D ZAMZAM Administration Glycopyrrolate 1 mg 04/22/19 20:00 05/03/19 09:45 Robinul FEEDTUBE 1 mg TID ZAMZAM Administration Hydrophilic Ointment 1 applic 03/30/19 11:24 04/22/19 08:37 Vaseline Lip Therapy TP 1 applic Q2HR PRN Administration Dry Lips Ceftriaxone Sodium 1 gm in 50 mls @ 100 mls/hr 05/01/19 14:00 05/03/19 09:44 Rocephin/Ns 1 Gm/50 Ml IV 100 mls/hr Q24HR ZAMZAM Administration Protocol Insulin Glargine 25 units 05/01/19 22:00 05/03/19 00:23 Lantus SUB-Q 25 units QHS ZAMZAM Administration Insulin Human Lispro 0 unit 04/21/19 13:00 05/03/19 06:25 Humalog SUB-Q 6 unit Q6HR [facility] Administration Protocol Insulin Human Lispro 10 unit 05/01/19 11:30 05/03/19 07:30 Humalog SUB-Q Not Given AC [facility] Levetiracetam 500 mg 04/03/19 10:00 05/03/19 09:45 Keppra PO 500 mg BID ZAMZAM Administration Metoprolol Tartrate 5 mg 04/14/19 13:06 04/22/19 08:29 Lopressor IV 5 mg Q6HR PRN Administration Tachyarrhythmias Metoprolol Tartrate 25 mg 04/16/19 10:00 05/03/19 09:45 Lopressor PO 25 mg BID ZAMZAM Administration Multi-Ingred Cream/Lotion/Oil/Oint 1 applic 03/30/19 11:24 04/06/19 11:39 Artificial Tears Ophth Oint OU 1 applic Q4HR PRN Administration Dry Eye(s) Ondansetron HCl 4 mg 03/29/19 23:34 Zofran IV Q8H PRN Nausea And Vomiting Scopolamine 1 each 04/17/19 12:00 05/02/19 16:25 Transderm-Scop TD 1 each Q3D ZAMZAM Administration Simple Syrup 15 ml 04/02/19 11:44 04/24/19 06:02 Simple Syrup FEEDTUBE 15 ml PRN PRN Administration Hypoglycemia Simple Syrup 30 ml 04/02/19 11:44 Simple Syrup FEEDTUBE PRN PRN Hypoglycemia Sodium Bicarbonate 325 mg 04/02/19 11:44 Sodium Bicarbonate FEEDTUBE PRN PRN For Clogged Feeding Tube Sodium Chloride 10 ml 03/29/19 23:34 04/22/19 08:29 Sodium Chloride Flush Syringe 10 Ml IV 10 ml PRN PRN Administration LINE FLUSH Nutrition/Malnutrition Assess - Dietary Evaluation Nutrition/Malnutrition Findings: Nutrition Notes Start: 03/30/19 13:14 Freq: Status: Active Protocol: Document 05/02/19 09:58 LM (Rec: 05/02/19 10:46 LM [id number]) Nutrition Notes Initial or Follow up Reassessment Current Diagnosis Acute Kidney Injury,Diabetes, Sepsis,Respiratory Failure Other Pertinent Diagnosis s/p trach & PEG, s/p cardiac arrest, DKA, ARF, Shock liver Current Diet Glucerna 1.2 at 50 ml/hr Labs/Tests POC glu 280 Pertinent Medications Reviewed Height 5 ft Weight 38.5 kg [place] Body Weight (kg) 45.45 BMI 16.5 Weight change and time frame Wt change noted Subjective/Other Information Glucerna 1.2 running at 50 ml/ hr via PEG. Percent of energy/protein needs met: 100%/100% Burn Absent Trauma Absent #1 Nutrition Diagnosis Inadequate oral intake Diagnosis Progress(for reassessment Continues documentation) Is patient on ventilator? No Is Patient Ambulatory and/or Out of Bed No REE-([place] Jeor-confined to bed) 1228.320 Kcal/Kg value to use for calculation 38 Approximate Energy Requirements Using 1463 kcal/Kg Calculation Used for Recommendations Kcal/kg Additional Notes Protein: 1.2-1.5g/k-60g/ day Fluids: 1ml/kcal Nutrition Intervention Change Diet Order: Continue TF Nutrition Support: Glucerna 1.2 at 50ml/hr with 80ml water flush q4h. Kcal 1,440 Protein (gm) 72 Fluid (mL) 966 Goal #1 Meet at least 75% of energy and protein needs Follow-Up By: 05/07/19 Additional Comments F/U for stable TF rate and wt change
[2019-05-03] MEDS: TYLENOL PO PRN (18:09)
[2019-05-04] MEDS: HumaLOG SUB-Q SCH ×6 (07:25→19:04)
[2019-05-04] MEDS: ROBINUL FEEDTUBE SCH ×3 (08:00→20:50)
--- NOTE | 2019-05-04 09:34 | Progress Note ---
Assessment and Plan Assessment and plan: Patient is a 29 year old woman with a history of diabetes was brought to the emergency room following a cardiac arrest. Her last well-known time was 10:30 in the morning of presentation, she was traveling with a friend, she was unresponsive in the back seat. EMS was called, CPR was started and continued here in the emergency room. Patient was intubated in the ER, noted hypotensive started on dobutamine, epinephrine and Levophed drip, given IV fluids, found to be in DKA with BG ~2200, several metabolic derangements - placed on insulin drip and admitted to ICU. BP improved and she was weaned off pressors. Pt off pressors and extubated. Transferred to floor awaiting placement Uncontrolled DM type 1 with hyperglycemia - cont. basal insulin Lantus - cont. SSI - Blood sugar is uncontrolled and increase Lantus and add 10 units of Humalog before meals Acute respiratory failure s/p intubated, off vent - s/p trach and peg on 5 L of oxygen - Tracheostomy re-adjusted on 04/17/19 - on vent, cont nebs, - s/p Trach - Pulm following - Aspiration precautions - VAP bundle Acute anoxic encephalopathy, POA - from cardiac arrest - MR concerning for anoxic Brain injury Cardiac arrest s/p resuscitation - likely 2/2 severe hyperglycemia - preserved EF on 2D echo Generalized Anasacara -Given a dose of Bumex s/p DKA, severe Shock hypotensive +/- sepsis - resolved Now off pressors. Was on vasopressin, Levophed, Phenylephrine Sepsis with possible aspiration PNA - evident on CXR on admission with left sided infiltrates - Competed abx - Abx discontinued following notation that no evidence of liver lesion not consistent with infection per ID - Leucocytosis and thrombocytosis are likely reactive from hepatic subcapsular hematoma UTI, Patient had low-grade temp 04/30/19 - No fever today -UA suggestive of UTI -Urine culture showed enterococcus faecalis, and hanks sensitive. -Patient started on Rocephin on 05/01/19 Head lice - multiple dosing of Permethin given, resolved Acute renal failure, likely vasomotor nephropathy - resolved Anemia, acute on chronic - no sign of blood loss - s/p 2 Units PRBC transfused Hyperkalemia, resolved with fluid and insulin Hypernatremia Resolved hypokalemia, resolved Shock liver with elevated LFT and Coagulopathy - due to cardiac arrest and hypotension - cont to monitor Liver lesion ID Physician following Discontinued abx, not consistent with infection as noted above Hypermagnesemia - monitor levels as needed Hyperphosphatemia -cont to monitor, improved Stage 1 sacral ulcer, poa - upper ext blisters - pressure ulcer prevention strategies - wound care VTE Prophylaxis with Lovenox Poor prognosis DNR status Disposition: continue inpatient care, await placement in [place], [place] 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 The patient appeared well nourished and normally developed. Vital signs as documented. Head exam is unremarkable. No scleral icterus . Neck is without jugular venous distension, thyromegaly, or carotid bruits. Lungs are clear to auscultation. Cardiac exam reveals regular rate and Rhythm. Abdominal exam reveals normal bowel sounds. Extremities are nonedematous and both femoral and pedal pulses are normal. 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 - Constitutional Vitals: Temp Pulse Resp BP Pulse Ox 98.2 F 111 H 18 107/77 98 05/04/19 05:59 05/04/19 05:59 05/04/19 05:59 05/04/19 05:59 05/04/19 09:10 General appearance: Present: other (intubated) Results - Labs CBC & Chem 7: 05/03/19 04:57 05/03/19 04:57 Labs: Laboratory Last Values WBC 6.1 K/mm3 (4.5-11.0) 05/03/19 04:57 RBC 3.45 M/mm3 (3.65-5.03) L 05/03/19 04:57 Hgb 11.1 gm/dl (10.1-14.3) 05/03/19 04:57 Hct 33.0 % (30.3-42.9) 05/03/19 04:57 MCV 96 fl (79-97) 05/03/19 04:57 MCH 32 pg (28-32) 05/03/19 04:57 MCHC 34 % (30-34) 05/03/19 04:57 RDW 15.5 % (13.2-15.2) H 05/03/19 04:57 Plt Count 373 K/mm3 (140-440) 05/03/19 04:57 Lymph % (Auto) 27.8 % (13.4-35.0) 05/03/19 04:57 Mckean % (Auto) 7.6 % (0.0-7.3) H 05/03/19 04:57 Eos % (Auto) 2.6 % (0.0-4.3) 05/03/19 04:57 Baso % (Auto) 0.6 % (0.0-1.8) 05/03/19 04:57 Lymph # 1.7 K/mm3 (1.2-5.4) 05/03/19 04:57 Mckean # 0.5 K/mm3 (0.0-0.8) 05/03/19 04:57 Eos # 0.2 K/mm3 (0.0-0.4) 05/03/19 04:57 Baso # 0.0 K/mm3 (0.0-0.1) 05/03/19 04:57 Add Manual Diff Complete 04/01/19 05:01 Total Counted 100 04/01/19 05:01 Seg Neutrophils % 61.4 % (40.0-70.0) 05/03/19 04:57 Seg Neuts % (Manual) 71.0 % (40.0-70.0) H 04/01/19 05:01 Band Neutrophils % 0 % 04/01/19 05:01 Lymphocytes % (Manual) 20.0 % (13.4-35.0) 04/01/19 05:01 Reactive Lymphs % (Man) 0 % 04/01/19 05:01 Monocytes % (Manual) 7.0 % (0.0-7.3) 04/01/19 05:01 Eosinophils % (Manual) 2.0 % (0.0-4.3) 04/01/19 05:01 Basophils % (Manual) 0 % (0.0-1.8) 04/01/19 05:01 Metamyelocytes % 0 % 04/01/19 05:01 Myelocytes % 0 % 04/01/19 05:01 Promyelocytes % 0 % 04/01/19 05:01 Blast Cells % 0 % 04/01/19 05:01 Nucleated RBC % Not Reportable 04/01/19 05:01 Seg Neutrophils # 3.7 K/mm3 (1.8-7.7) 05/03/19 04:57 Seg Neutrophils # Man 4.8 K/mm3 (1.8-7.7) 04/01/19 05:01 Band Neutrophils # 0.0 K/mm3 04/01/19 05:01 Lymphocytes # (Manual) 1.4 K/mm3 (1.2-5.4) 04/01/19 05:01 Abs React Lymphs (Man) 0.0 K/mm3 04/01/19 05:01 Monocytes # (Manual) 0.5 K/mm3 (0.0-0.8) 04/01/19 05:01 Eosinophils # (Manual) 0.1 K/mm3 (0.0-0.4) 04/01/19 05:01 Basophils # (Manual) 0.0 K/mm3 (0.0-0.1) 04/01/19 05:01 Metamyelocytes # 0.0 K/mm3 04/01/19 05:01 Myelocytes # 0.0 K/mm3 04/01/19 05:01 Promyelocytes # 0.0 K/mm3 04/01/19 05:01 Blast Cells # 0.0 K/mm3 04/01/19 05:01 WBC Morphology Not Reportable 04/01/19 05:01 Hypersegmented Neuts Not Reportable 04/01/19 05:01 Hyposegmented Neuts Not Reportable 04/01/19 05:01 Hypogranular Neuts Not Reportable 04/01/19 05:01 Smudge Cells Not Reportable 04/01/19 05:01 Toxic Granulation Not Reportable 04/01/19 05:01 Toxic Vacuolation Not Reportable 04/01/19 05:01 Dohle Bodies Not Reportable 04/01/19 05:01 Pelger-Huet Anomaly Not Reportable 04/01/19 05:01 Wong Rods Not Reportable 04/01/19 05:01 Platelet Estimate Not Reportable 04/01/19 05:01 Clumped Platelets Not Reportable 04/01/19 05:01 Plt Clumps, EDTA Not Reportable 04/01/19 05:01 Large Platelets Not Reportable 04/01/19 05:01 Giant Platelets Not Reportable 04/01/19 05:01 Platelet Satelliting Not Reportable 04/01/19 05:01 Plt Morphology Comment Not Reportable 04/01/19 05:01 RBC Morphology Normal 04/01/19 05:01 Dimorphic RBCs Not Reportable 04/01/19 05:01 Polychromasia Not Reportable 04/01/19 05:01 Hypochromasia Not Reportable 04/01/19 05:01 Poikilocytosis Not Reportable 04/01/19 05:01 Anisocytosis Not Reportable 04/01/19 05:01 Microcytosis Not Reportable 04/01/19 05:01 Macrocytosis Not Reportable 04/01/19 05:01 Spherocytes Not Reportable 04/01/19 05:01 Pappenheimer Bodies Not Reportable 04/01/19 05:01 Sickle Cells Not Reportable 04/01/19 05:01 Target Cells Not Reportable 04/01/19 05:01 Tear Drop Cells Not Reportable 04/01/19 05:01 Ovalocytes Not Reportable 04/01/19 05:01 Helmet Cells Not Reportable 04/01/19 05:01 [place] Bodies Not Reportable 04/01/19 05:01 Post Rings Not Reportable 04/01/19 05:01 [place] Cells Not Reportable 04/01/19 05:01 Bite Cells Not Reportable 04/01/19 05:01 Crenated Cell Not Reportable 04/01/19 05:01 Elliptocytes Not Reportable 04/01/19 05:01 Acanthocytes (Spur) Not Reportable 04/01/19 05:01 Rouleaux Not Reportable 04/01/19 05:01 Hemoglobin C Crystals Not Reportable 04/01/19 05:01 Schistocytes Not Reportable 04/01/19 05:01 Malaria parasites Not Reportable 04/01/19 05:01 Benja Bodies Not Reportable 04/01/19 05:01 Hem Pathologist Commnt No 04/01/19 05:01 PT 13.9 Sec. (12.2-14.9) 04/01/19 17:14 INR 1.10 (0.87-1.13) 04/01/19 17:14 APTT 74.5 Sec. (24.2-36.6) H* 03/29/19 19:20 Fibrinogen 313 mg/dl (211-480) 04/01/19 17:14 D-Dimer 4526.86 ng/mlDDU (0-234) H 04/06/19 00:06 Heparin Anti-Xa, Unfract Negative (Negative) 03/31/19 15:00 POC ABG pH 7.565 (7.35-7.45) H 04/19/19 04:35 ABG pH 7.396 pH Units (7.350-7.450) 04/03/19 05:35 POC ABG pCO2 36.2 (35-45) 04/19/19 04:35 ABG pCO2 32.2 mm Hg 04/03/19 05:35 POC ABG pO2 88 (80-105) 04/19/19 04:35 ABG pO2 97.7 mm Hg (80.0-90.0) H 04/03/19 05:35 POC ABG HCO3 32.8 (22-26 mml/L) 04/19/19 04:35 ABG HCO3 19.3 mmol/L (20.0-26.0) L 04/03/19 05:35 POC ABG Total CO2 34 (23-27mmol/L) 04/19/19 04:35 POC ABG O2 Sat 98 04/19/19 04:35 ABG O2 Saturation 97.6 % (95.0-99.0) 04/03/19 05:35 ABG O2 Content 10.9 (0.0-44) 04/03/19 05:35 POC ABG Base Excess 11 ((-2) - (+3)mmol/L) 04/19/19 04:35 ABG Base Excess -5.0 mmol/L (-2.0-3.0) L 04/03/19 05:35 ABG Hemoglobin 8.0 gm/dl (12.0-16.0) L 04/03/19 05:35 ABG Carboxyhemoglobin 2.1 % (0.0-5.0) 04/03/19 05:35 ABG Methemoglobin 0.5 % (0.0-1.5) 04/03/19 05:35 VBG pH 6.800 (7.320-7.420) L* 03/29/19 19:47 Oxyhemoglobin 95.1 % (95.0-99.0) 04/03/19 05:35 FiO2 40 % 04/19/19 04:35 Sodium 144 mmol/L (137-145) 05/03/19 04:57 Potassium 4.1 mmol/L (3.6-5.0) 05/03/19 04:57 Chloride 103.8 mmol/L (98-107) 05/03/19 04:57 Carbon Dioxide 29 mmol/L (22-30) 05/03/19 04:57 Anion Gap 15 mmol/L 05/03/19 04:57 BUN 23 mg/dL (7-17) H 05/03/19 04:57 Creatinine 0.2 mg/dL (0.7-1.2) L 05/03/19 04:57 Estimated GFR > 60 ml/min 05/03/19 04:57 BUN/Creatinine Ratio 115 % 05/03/19 04:57 Glucose 101 mg/dL (65-100) H 05/03/19 04:57 POC Glucose 83 (70-105) 05/04/19 06:10 Lactic Acid 3.30 mmol/L (0.7-2.0) H* 03/31/19 07:50 Calcium 9.5 mg/dL (8.4-10.2) 05/03/19 04:57 Phosphorus 4.10 mg/dL (2.5-4.5) 04/09/19 16:25 Magnesium 1.70 mg/dL (1.7-2.3) 04/22/19 03:57 Iron 26 ug/dL (37-170) L 03/31/19 08:20 TIBC 193 mcg/dL (250-450) L 03/31/19 08:20 Total Bilirubin 0.20 mg/dL (0.1-1.2) 04/22/19 03:57 Direct Bilirubin 0.2 mg/dL (0-0.2) 04/02/19 07:48 Indirect Bilirubin 0.5 mg/dL 04/02/19 07:48 AST 60 units/L (5-40) H 04/22/19 03:57 ALT 31 units/L (7-56) 04/22/19 03:57 Alkaline Phosphatase 204 units/L (35-129) H 04/22/19 03:57 Total Creatine Kinase 2465 units/L (30-135) H 03/30/19 05:26 CK-MB (CK-2) 52.7 ng/mL (0.0-4.0) H 03/30/19 05:26 CK-MB (CK-2) Rel Index 2.1 (0-4) 03/30/19 05:26 Troponin T < 0.010 ng/mL (0.00-0.029) 04/06/19 05:20 C-Reactive Protein 2.40 mg/dL (0.00-1.30) H 03/30/19 12:57 Total Protein 7.6 g/dL (6.3-8.2) 04/22/19 03:57 Albumin 3.1 g/dL (3.9-5) L 04/22/19 03:57 Albumin/Globulin Ratio 0.7 % 04/22/19 03:57 Serotonin Release Assay See scanned result 03/31/19 15:00 Vitamin B12 > 2000 pg/mL (211-911) H 03/31/19 08:20 Folate > 20 ng/mL (7.3-26.0) 03/31/19 08:20 HCG, Qual Negative (Negative) 03/29/19 19:20 Urine Color Yellow (Yellow) 05/02/19 07:08 Urine Turbidity Slightly-cloudy (Clear) 05/02/19 07:08 Urine pH 6.0 (5.0-7.0) 05/02/19 07:08 Ur Specific Mcgrath 1.020 (1.003-1.030) 05/02/19 07:08 Urine Protein <15 mg/dl mg/dL (Negative) 05/02/19 07:08 Urine Glucose (UA) >=500 mg/dL (Negative) 05/02/19 07:08 Urine Ketones Neg mg/dL (Negative) 05/02/19 07:08 Urine Blood Neg (Negative) 05/02/19 07:08 Urine Nitrite Neg (Negative) 05/02/19 07:08 Urine Bilirubin Neg (Negative) 05/02/19 07:08 Urine Urobilinogen < 2.0 mg/dL (<2.0) 05/02/19 07:08 Ur Leukocyte Esterase Neg (Negative) 05/02/19 07:08 Urine WBC (Auto) 6.0 /HPF (0.0-6.0) 05/02/19 07:08 Urine RBC (Auto) 1.0 /HPF (0.0-6.0) 05/02/19 07:08 U Epithel Cells (Auto) 4.0 /HPF (0-13.0) 04/30/19 Unknown Urine Bacteria (Auto) 1+ /HPF (Negative) 05/02/19 07:08 Amorphous Crystals Few 05/02/19 07:08 Urine Mucus Few /HPF 05/02/19 07:08 Salicylates 0.8 mg/dL (2.8-20.0) L 03/30/19 Unknown Urine Opiates Screen Presumptive negative 03/29/19 23:10 Urine Methadone Screen Presumptive negative 03/29/19 23:10 Acetaminophen < 5.0 ug/mL (10.0-30.0) L 03/30/19 Unknown Ur Barbiturates Screen Presumptive negative 03/29/19 23:10 Ur Phencyclidine Scrn Presumptive negative 03/29/19 23:10 Ur Amphetamines Screen Presumptive negative 03/29/19 23:10 U Benzodiazepines Scrn Presumptive negative 03/29/19 23:10 Urine Cocaine Screen Presumptive negative 03/29/19 23:10 U Marijuana (THC) Screen Presumptive negative 03/29/19 23:10 Drugs of Abuse Note Disclamer 03/29/19 23:10 Heparin-induced Plt Ab Negative (Negative) 03/31/19 15:00 UF Heparin High Dose 0 % Release 03/31/19 15:00 FABIAN UFH Low Dose 0.1 0 % Release 03/31/19 15:00 FABIAN UFH Low Dose 0.5 0 % Release 03/31/19 15:00 Hepatitis A IgM Ab Non-reactive (NonReactive) 03/30/19 Unknown Hep Bs Antigen Non-reactive (Negative) 03/30/19 Unknown Hep B Core IgM Ab Non-reactive (NonReactive) 03/30/19 Unknown Hepatitis C Antibody Non-reactive (NonReactive) 03/30/19 Unknown Miscellaneous Test Flexitest 1 H 03/30/19 14:00 Blood Type O POSITIVE 03/30/19 03:30 Antibody Screen Negative 03/30/19 03:30 Crossmatch See Detail 03/30/19 03:30 Active Medications - Current Medications Current Medications: Generic Name Dose Route Start Last Admin Trade Name Freq PRN Reason Stop Dose Admin Acetaminophen 650 mg 03/29/19 23:34 05/03/19 18:09 Tylenol PO 650 mg Q4H PRN Administration Pain MILD(1-3)/Fever >100.5/WARE Lipase/Protease/Amylase 1 each 04/02/19 11:44 Pancreaze 10,500 Unit FEEDTUBE PRN PRN For Clogged Feeding Tube Dextrose 50 ml 04/21/19 12:03 D50w (25gm) Syringe IV PRN PRN Hypoglycemia Enoxaparin Sodium 40 mg 04/14/19 10:00 05/03/19 09:44 Lovenox SUB-Q 40 mg QDAY@1000 ZAMZAM Administration Famotidine 20 mg 04/02/19 10:00 05/03/19 21:06 Pepcid PO 20 mg BID ZAMZAM Administration Fentanyl 25 mcg 04/14/19 14:00 05/02/19 16:20 Duragesic TD 25 mcg Q3D ZAMZAM Administration Glycopyrrolate 1 mg 04/22/19 20:00 05/03/19 21:06 Robinul FEEDTUBE 1 mg TID ZAMZAM Administration Hydrophilic Ointment 1 applic 03/30/19 11:24 04/22/19 08:37 Vaseline Lip Therapy TP 1 applic Q2HR PRN Administration Dry Lips Ceftriaxone Sodium 1 gm in 50 mls @ 100 mls/hr 05/01/19 14:00 05/03/19 09:44 Rocephin/Ns 1 Gm/50 Ml IV 100 mls/hr Q24HR ZAMZAM Administration Protocol Insulin Glargine 25 units 05/01/19 22:00 05/03/19 21:08 Lantus SUB-Q 25 units QHS ZAMZAM Administration Insulin Human Lispro 0 unit 04/21/19 13:00 05/04/19 07:25 Humalog SUB-Q Not Given Q6HR COUNT INCLUDES THE [facility] Protocol Insulin Human Lispro 10 unit 05/01/19 11:30 05/03/19 18:13 Humalog SUB-Q Not Given [facility] Levetiracetam 500 mg 04/03/19 10:00 05/03/19 21:06 Keppra PO 500 mg BID ZAMZAM Administration Metoprolol Tartrate 5 mg 04/14/19 13:06 04/22/19 08:29 Lopressor IV 5 mg Q6HR PRN Administration Tachyarrhythmias Metoprolol Tartrate 25 mg 04/16/19 10:00 05/03/19 21:06 Lopressor PO 25 mg BID ZAMZAM Administration Multi-Ingred Cream/Lotion/Oil/Oint 1 applic 03/30/19 11:24 04/06/19 11:39 Artificial Tears Ophth Oint OU 1 applic Q4HR PRN Administration Dry Eye(s) Ondansetron HCl 4 mg 03/29/19 23:34 Zofran IV Q8H PRN Nausea And Vomiting Scopolamine 1 each 04/17/19 12:00 05/02/19 16:25 Transderm-Scop TD 1 each Q3D ZAMZAM Administration Simple Syrup 15 ml 04/02/19 11:44 04/24/19 06:02 Simple Syrup FEEDTUBE 15 ml PRN PRN Administration Hypoglycemia Simple Syrup 30 ml 04/02/19 11:44 Simple Syrup FEEDTUBE PRN PRN Hypoglycemia Sodium Bicarbonate 325 mg 04/02/19 11:44 Sodium Bicarbonate FEEDTUBE PRN PRN For Clogged Feeding Tube Sodium Chloride 10 ml 03/29/19 23:34 04/22/19 08:29 Sodium Chloride Flush Syringe 10 Ml IV 10 ml PRN PRN Administration LINE FLUSH Nutrition/Malnutrition Assess - Dietary Evaluation Nutrition/Malnutrition Findings: Nutrition Notes Start: 03/30/19 13:14 Freq: Status: Active Protocol: Document 05/02/19 09:58 LM (Rec: 05/02/19 10:46 LM [id number]) Nutrition Notes Initial or Follow up Reassessment Current Diagnosis Acute Kidney Injury,Diabetes, Sepsis,Respiratory Failure Other Pertinent Diagnosis s/p trach & PEG, s/p cardiac arrest, DKA, ARF, Shock liver Current Diet Glucerna 1.2 at 50 ml/hr Labs/Tests POC glu 280 Pertinent Medications Reviewed Height 5 ft Weight 38.5 kg [place] Body Weight (kg) 45.45 BMI 16.5 Weight change and time frame Wt change noted Subjective/Other Information Glucerna 1.2 running at 50 ml/ hr via PEG. Percent of energy/protein needs met: 100%/100% Burn Absent Trauma Absent #1 Nutrition Diagnosis Inadequate oral intake Diagnosis Progress(for reassessment Continues documentation) Is patient on ventilator? No Is Patient Ambulatory and/or Out of Bed No REE-([place]-confined to bed) 1228.320 Kcal/Kg value to use for calculation 38 Approximate Energy Requirements Using 1463 kcal/Kg Calculation Used for Recommendations Kcal/kg Additional Notes Protein: 1.2-1.5g/k-60g/ day Fluids: 1ml/kcal Nutrition Intervention Change Diet Order: Continue TF Nutrition Support: Glucerna 1.2 at 50ml/hr with 80ml water flush q4h. Kcal 1,440 Protein (gm) 72 Fluid (mL) 966 Goal #1 Meet at least 75% of energy and protein needs Follow-Up By: 05/07/19 Additional Comments F/U for stable TF rate and wt change
--- NOTE | 2019-05-04 10:45 | Progress Note ---
Subjective Date of service: 05/04/19 Principal diagnosis: Ac Hypoxemic Resp Failure; DKA; Severe sepsis with shock; ANGELICA Interval history: Patient is seen today for: Acute Hypoxemic Resp Failure; Ac toxic metabolic encephalopathy; DKA; Severe sepsis with shock; Possible aspiration pneumonia; History of polysubstance abuse; History of seizure disorder; Acute kidney injury, possibly on chronic Seen and examined at bedside; 24hour events reviewed; nursing and respiratory care staff consulted; no adverse overnight events reported to me; resting peacefully in bed; AMS is persistent; s/p tracheostomy to ATP no emesis or overt aspiration and no high grade fevers. Copious white secretions,on going strong cough, no acute changes reported per RN and RT Vitals, labs,medications, chart reviewed. Objective Vital Signs - 12hr 05/03/19 05/04/19 05/04/19 23:54 00:00 05:59 Temperature 99.2 F 98.2 F Pulse Rate 101 H 111 H Respiratory 20 18 Rate Blood Pressure 121/81 107/77 O2 Sat by Pulse 97 96 Oximetry O2 Sat by Pulse 100 Oximetry [ Assessment] 05/04/19 05/04/19 09:10 09:15 Temperature Pulse Rate Respiratory Rate Blood Pressure O2 Sat by Pulse 98 Oximetry O2 Sat by Pulse 98 Oximetry [ Assessment] Constitutional: no acute distress, other (young CF normocephalic and atraumatic s/p tracheostomy to ATP, copious secretions. Opening eyes. Not following commands.) Eyes: non-icteric ENT: oropharynx moist Neck: supple, no lymphadenopathy, no JVD, other (midline trach tube) Effort: mildly labored Ascultation: Bilateral: clear, diminished breath sounds, rhonchi Percussion: Bilateral: not dull Cardiovascular: regular rate and rhythm Gastrointestinal: normoactive bowel sounds, soft, non-tender, non-distended, other (PEG tube) Integumentary: normal Extremities: no cyanosis, no edema, pink and warm, pulses normal, no ischemia or petechiae Neurologic: unable to assess (awake, alert, not obeying commands) Psychiatric: other (unable to assess) CBC and BMP: 05/03/19 04:57 05/03/19 04:57 ABG, PT/INR, D-dimer: ABG POC ABG pH 7.565 (7.35-7.45) H 04/19/19 04:35 ABG pH 7.396 pH Units (7.350-7.450) 04/03/19 05:35 POC ABG pCO2 36.2 (35-45) 04/19/19 04:35 ABG pCO2 32.2 mm Hg 04/03/19 05:35 POC ABG pO2 88 (80-105) 04/19/19 04:35 ABG pO2 97.7 mm Hg (80.0-90.0) H 04/03/19 05:35 POC ABG HCO3 32.8 (22-26 mml/L) 04/19/19 04:35 POC ABG Total CO2 34 (23-27mmol/L) 04/19/19 04:35 POC ABG O2 Sat 98 04/19/19 04:35 ABG O2 Saturation 97.6 % (95.0-99.0) 04/03/19 05:35 PT/INR, D-dimer PT 13.9 Sec. (12.2-14.9) 04/01/19 17:14 INR 1.10 (0.87-1.13) 04/01/19 17:14 D-Dimer 4526.86 ng/mlDDU (0-234) H 04/06/19 00:06 Abnormal lab findings: Abnormal Labs 03/29/19 03/29/19 03/29/19 19:11 19:20 19:20 WBC 26.7 H RBC 2.52 L Hgb 8.1 L Hct MCV 148 H MCH MCHC 22 L RDW 18.5 H Plt Count Lymph % (Auto) Nicholas % (Auto) Lymph # Seg Neutrophils % Seg Neuts % (Manual) 82.0 H Lymphocytes % (Manual) 7.0 L Nucleated RBC % Seg Neutrophils # Seg Neutrophils # Man 21.9 H Lymphocytes # (Manual) Monocytes # (Manual) 1.9 H PT 21.8 H INR 1.95 H APTT 74.5 H* D-Dimer POC ABG pH ABG pH POC ABG pCO2 POC ABG pO2 ABG pO2 ABG HCO3 ABG O2 Saturation ABG Base Excess ABG Hemoglobin VBG pH Oxyhemoglobin Sodium Potassium Chloride Carbon Dioxide BUN Creatinine Glucose POC Glucose > 500 H Lactic Acid Calcium Phosphorus Magnesium Iron TIBC Direct Bilirubin AST ALT Alkaline Phosphatase Total Creatine Kinase CK-MB (CK-2) C-Reactive Protein Total Protein Albumin Vitamin B12 Urine WBC (Auto) Salicylates Acetaminophen Miscellaneous Test Crossmatch 03/29/19 03/29/19 03/29/19 19:20 19:47 20:59 WBC RBC Hgb Hct MCV MCH MCHC RDW Plt Count Lymph % (Auto) Nicholas % (Auto) Lymph # Seg Neutrophils % Seg Neuts % (Manual) Lymphocytes % (Manual) Nucleated RBC % Seg Neutrophils # Seg Neutrophils # Man Lymphocytes # (Manual) Monocytes # (Manual) PT INR APTT D-Dimer POC ABG pH 6.892 L ABG pH POC ABG pCO2 POC ABG pO2 236 H ABG pO2 ABG HCO3 ABG O2 Saturation ABG Base Excess ABG Hemoglobin VBG pH 6.800 L* Oxyhemoglobin Sodium 118 L* Potassium 9.0 H* Chloride 64.5 L Carbon Dioxide 7 L* BUN 53 H Creatinine 2.1 H Glucose 2196 H* POC Glucose Lactic Acid Calcium 12.4 H* Phosphorus Magnesium Iron TIBC Direct Bilirubin AST 3900 H ALT 1034 H Alkaline Phosphatase 316 H Total Creatine Kinase CK-MB (CK-2) C-Reactive Protein Total Protein 5.1 L Albumin 2.8 L Vitamin B12 Urine WBC (Auto) Salicylates Acetaminophen Miscellaneous Test Crossmatch 03/29/19 03/29/19 03/29/19 22:45 22:45 22:45 WBC RBC Hgb Hct MCV MCH MCHC RDW Plt Count Lymph % (Auto) Nicholas % (Auto) Lymph # Seg Neutrophils % Seg Neuts % (Manual) Lymphocytes % (Manual) Nucleated RBC % Seg Neutrophils # Seg Neutrophils # Man Lymphocytes # (Manual) Monocytes # (Manual) PT INR APTT D-Dimer POC ABG pH ABG pH POC ABG pCO2 POC ABG pO2 ABG pO2 ABG HCO3 ABG O2 Saturation ABG Base Excess ABG Hemoglobin VBG pH Oxyhemoglobin Sodium 132 L D Potassium 7.0 H* Chloride 84.3 L Carbon Dioxide 3 L* BUN 48 H Creatinine 1.8 H Glucose 1779 H* POC Glucose Lactic Acid Calcium Phosphorus 21.70 H Magnesium 4.70 H Iron TIBC Direct Bilirubin AST ALT Alkaline Phosphatase Total Creatine Kinase 363 H CK-MB (CK-2) C-Reactive Protein Total Protein Albumin Vitamin B12 Urine WBC (Auto) Salicylates Acetaminophen Miscellaneous Test Crossmatch 03/29/19 03/29/19 03/30/19 Unknown Unknown 00:11 WBC RBC Hgb Hct MCV MCH MCHC RDW Plt Count Lymph % (Auto) Nicholas % (Auto) Lymph # Seg Neutrophils % Seg Neuts % (Manual) Lymphocytes % (Manual) Nucleated RBC % Seg Neutrophils # Seg Neutrophils # Man Lymphocytes # (Manual) Monocytes # (Manual) PT INR APTT D-Dimer POC ABG pH ABG pH POC ABG pCO2 POC ABG pO2 ABG pO2 ABG HCO3 ABG O2 Saturation ABG Base Excess ABG Hemoglobin VBG pH Oxyhemoglobin Sodium 122 L Potassium 7.9 H* 6.4 H* Chloride 75.3 L 89.7 L Carbon Dioxide 3 L* 12 L D BUN 52 H 46 H Creatinine 2.0 H 1.7 H Glucose 2043 H* 1591 H* POC Glucose Lactic Acid Calcium 7.8 L Phosphorus 19.30 H Magnesium 3.90 H Iron TIBC Direct Bilirubin AST ALT Alkaline Phosphatase Total Creatine Kinase CK-MB (CK-2) C-Reactive Protein Total Protein Albumin Vitamin B12 Urine WBC (Auto) Salicylates Acetaminophen Miscellaneous Test Crossmatch 03/30/19 03/30/19 03/30/19 00:11 02:14 02:14 WBC RBC Hgb Hct MCV MCH MCHC RDW Plt Count Lymph % (Auto) Nicholas % (Auto) Lymph # Seg Neutrophils % Seg Neuts % (Manual) Lymphocytes % (Manual) Nucleated RBC % Seg Neutrophils # Seg Neutrophils # Man Lymphocytes # (Manual) Monocytes # (Manual) PT INR APTT D-Dimer POC ABG pH ABG pH POC ABG pCO2 POC ABG pO2 ABG pO2 ABG HCO3 ABG O2 Saturation ABG Base Excess ABG Hemoglobin VBG pH Oxyhemoglobin Sodium Potassium Chloride Carbon Dioxide 9 L* BUN 45 H Creatinine 1.7 H Glucose 1155 H* POC Glucose Lactic Acid Calcium 7.9 L Phosphorus 10.90 H D 5.30 H D Magnesium 3.10 H 2.90 H Iron TIBC Direct Bilirubin AST ALT Alkaline Phosphatase Total Creatine Kinase CK-MB (CK-2) C-Reactive Protein Total Protein Albumin Vitamin B12 Urine WBC (Auto) Salicylates Acetaminophen Miscellaneous Test Crossmatch 03/30/19 03/30/19 03/30/19 03:15 03:30 04:23 WBC 18.0 H RBC 2.31 L Hgb 7.3 L Hct 23.8 L D MCV 103 H MCH MCHC RDW 17.1 H Plt Count Lymph % (Auto) Nicholas % (Auto) Lymph # Seg Neutrophils % Seg Neuts % (Manual) 79.0 H Lymphocytes % (Manual) Nucleated RBC % Seg Neutrophils # Seg Neutrophils # Man 14.2 H Lymphocytes # (Manual) Monocytes # (Manual) PT INR APTT D-Dimer POC ABG pH 7.251 L ABG pH POC ABG pCO2 POC ABG pO2 156 H ABG pO2 ABG HCO3 ABG O2 Saturation ABG Base Excess ABG Hemoglobin VBG pH Oxyhemoglobin Sodium Potassium Chloride Carbon Dioxide BUN Creatinine Glucose POC Glucose Lactic Acid Calcium Phosphorus Magnesium Iron TIBC Direct Bilirubin AST ALT Alkaline Phosphatase Total Creatine Kinase CK-MB (CK-2) C-Reactive Protein Total Protein Albumin Vitamin B12 Urine WBC (Auto) Salicylates Acetaminophen Miscellaneous Test Crossmatch See Detail 03/30/19 03/30/19 03/30/19 05:26 05:26 10:38 WBC RBC Hgb Hct MCV MCH MCHC RDW Plt Count Lymph % (Auto) Nicholas % (Auto) Lymph # Seg Neutrophils % Seg Neuts % (Manual) Lymphocytes % (Manual) Nucleated RBC % Seg Neutrophils # Seg Neutrophils # Man Lymphocytes # (Manual) Monocytes # (Manual) PT INR APTT D-Dimer POC ABG pH ABG pH POC ABG pCO2 POC ABG pO2 ABG pO2 ABG HCO3 ABG O2 Saturation ABG Base Excess ABG Hemoglobin VBG pH Oxyhemoglobin Sodium 158 H D Potassium 3.5 L Chloride 109.3 H Carbon Dioxide 19 L D BUN 40 H Creatinine 1.5 H Glucose 760 H* POC Glucose 380 H Lactic Acid Calcium 7.3 L Phosphorus Magnesium 2.60 H Iron TIBC Direct Bilirubin AST 95821 H ALT 2156 H Alkaline Phosphatase 271 H Total Creatine Kinase 2465 H CK-MB (CK-2) 52.7 H C-Reactive Protein Total Protein 4.5 L Albumin 2.4 L Vitamin B12 Urine WBC (Auto) Salicylates Acetaminophen Miscellaneous Test Crossmatch 03/30/19 03/30/19 03/30/19 11:08 12:25 12:57 WBC RBC Hgb Hct MCV MCH MCHC RDW Plt Count Lymph % (Auto) Nicholas % (Auto) Lymph # Seg Neutrophils % Seg Neuts % (Manual) Lymphocytes % (Manual) Nucleated RBC % Seg Neutrophils # Seg Neutrophils # Man Lymphocytes # (Manual) Monocytes # (Manual) PT INR APTT D-Dimer POC ABG pH ABG pH POC ABG pCO2 POC ABG pO2 ABG pO2 ABG HCO3 ABG O2 Saturation ABG Base Excess ABG Hemoglobin VBG pH Oxyhemoglobin Sodium 156 H Potassium 3.2 L Chloride 116.4 H Carbon Dioxide 21 L BUN 37 H Creatinine Glucose 162 H POC Glucose 263 H 196 H Lactic Acid Calcium 7.2 L Phosphorus Magnesium Iron TIBC Direct Bilirubin AST ALT Alkaline Phosphatase Total Creatine Kinase CK-MB (CK-2) C-Reactive Protein Total Protein Albumin Vitamin B12 Urine WBC (Auto) Salicylates Acetaminophen Miscellaneous Test Crossmatch 03/30/19 03/30/19 03/30/19 12:57 12:57 12:57 WBC RBC Hgb Hct MCV MCH MCHC RDW Plt Count Lymph % (Auto) Nicholas % (Auto) Lymph # Seg Neutrophils % Seg Neuts % (Manual) Lymphocytes % (Manual) Nucleated RBC % Seg Neutrophils # Seg Neutrophils # Man Lymphocytes # (Manual) Monocytes # (Manual) PT 21.0 H INR 1.86 H APTT D-Dimer POC ABG pH ABG pH POC ABG pCO2 POC ABG pO2 ABG pO2 ABG HCO3 ABG O2 Saturation ABG Base Excess ABG Hemoglobin VBG pH Oxyhemoglobin Sodium Potassium Chloride Carbon Dioxide BUN Creatinine Glucose POC Glucose Lactic Acid 9.00 H* Calcium Phosphorus Magnesium Iron TIBC Direct Bilirubin AST ALT Alkaline Phosphatase Total Creatine Kinase CK-MB (CK-2) C-Reactive Protein 2.40 H Total Protein Albumin Vitamin B12 Urine WBC (Auto) Salicylates Acetaminophen Miscellaneous Test Crossmatch 03/30/19 03/30/19 03/30/19 13:23 14:00 14:47 WBC RBC Hgb Hct MCV MCH MCHC RDW Plt Count Lymph % (Auto) Nicholas % (Auto) Lymph # Seg Neutrophils % Seg Neuts % (Manual) Lymphocytes % (Manual) Nucleated RBC % Seg Neutrophils # Seg Neutrophils # Man Lymphocytes # (Manual) Monocytes # (Manual) PT INR APTT D-Dimer POC ABG pH ABG pH POC ABG pCO2 POC ABG pO2 ABG pO2 ABG HCO3 ABG O2 Saturation ABG Base Excess ABG Hemoglobin VBG pH Oxyhemoglobin Sodium Potassium Chloride Carbon Dioxide BUN Creatinine Glucose POC Glucose 176 H 245 H Lactic Acid Calcium Phosphorus Magnesium Iron TIBC Direct Bilirubin AST ALT Alkaline Phosphatase Total Creatine Kinase CK-MB (CK-2) C-Reactive Protein Total Protein Albumin Vitamin B12 Urine WBC (Auto) Salicylates Acetaminophen Miscellaneous Test Flexitest 1 H Crossmatch 03/30/19 03/30/19 03/30/19 16:11 17:11 17:46 WBC RBC Hgb Hct MCV MCH MCHC RDW Plt Count Lymph % (Auto) Nicholas % (Auto) Lymph # Seg Neutrophils % Seg Neuts % (Manual) Lymphocytes % (Manual) Nucleated RBC % Seg Neutrophils # Seg Neutrophils # Man Lymphocytes # (Manual) Monocytes # (Manual) PT INR APTT D-Dimer POC ABG pH ABG pH POC ABG pCO2 POC ABG pO2 ABG pO2 ABG HCO3 ABG O2 Saturation ABG Base Excess ABG Hemoglobin VBG pH Oxyhemoglobin Sodium Potassium Chloride Carbon Dioxide BUN Creatinine Glucose POC Glucose 181 H 167 H 125 H Lactic Acid Calcium Phosphorus Magnesium Iron TIBC Direct Bilirubin AST ALT Alkaline Phosphatase Total Creatine Kinase CK-MB (CK-2) C-Reactive Protein Total Protein Albumin Vitamin B12 Urine WBC (Auto) Salicylates Acetaminophen Miscellaneous Test Crossmatch 03/30/19 03/30/19 03/30/19 18:59 21:31 22:19 WBC RBC Hgb Hct MCV MCH MCHC RDW Plt Count Lymph % (Auto) Nicholas % (Auto) Lymph # Seg Neutrophils % Seg Neuts % (Manual) Lymphocytes % (Manual) Nucleated RBC % Seg Neutrophils # Seg Neutrophils # Man Lymphocytes # (Manual) Monocytes # (Manual) PT INR APTT D-Dimer POC ABG pH ABG pH POC ABG pCO2 POC ABG pO2 ABG pO2 ABG HCO3 ABG O2 Saturation ABG Base Excess ABG Hemoglobin VBG pH Oxyhemoglobin Sodium Potassium Chloride Carbon Dioxide BUN Creatinine Glucose POC Glucose 140 H 166 H 115 H Lactic Acid Calcium Phosphorus Magnesium Iron TIBC Direct Bilirubin AST ALT Alkaline Phosphatase Total Creatine Kinase CK-MB (CK-2) C-Reactive Protein Total Protein Albumin Vitamin B12 Urine WBC (Auto) Salicylates Acetaminophen Miscellaneous Test Crossmatch 03/30/19 03/30/19 03/30/19 23:13 Unknown Unknown WBC RBC Hgb Hct MCV MCH MCHC RDW Plt Count Lymph % (Auto) Nicholas % (Auto) Lymph # Seg Neutrophils % Seg Neuts % (Manual) Lymphocytes % (Manual) Nucleated RBC % Seg Neutrophils # Seg Neutrophils # Man Lymphocytes # (Manual) Monocytes # (Manual) PT INR APTT D-Dimer POC ABG pH ABG pH POC ABG pCO2 POC ABG pO2 ABG pO2 47.8 L ABG HCO3 18.8 L ABG O2 Saturation 83.8 L ABG Base Excess -5.4 L ABG Hemoglobin 6.8 L VBG pH Oxyhemoglobin 81.8 L Sodium 157 H Potassium 3.3 L Chloride 117.9 H Carbon Dioxide 20 L BUN 36 H Creatinine Glucose 150 H POC Glucose 112 H Lactic Acid Calcium 7.2 L Phosphorus Magnesium Iron TIBC Direct Bilirubin AST ALT Alkaline Phosphatase Total Creatine Kinase CK-MB (CK-2) C-Reactive Protein Total Protein Albumin Vitamin B12 Urine WBC (Auto) Salicylates Acetaminophen Miscellaneous Test Crossmatch 03/30/19 03/30/19 03/31/19 Unknown Unknown 00:03 WBC RBC Hgb Hct MCV MCH MCHC RDW Plt Count Lymph % (Auto) Nicholas % (Auto) Lymph # Seg Neutrophils % Seg Neuts % (Manual) Lymphocytes % (Manual) Nucleated RBC % Seg Neutrophils # Seg Neutrophils # Man Lymphocytes # (Manual) Monocytes # (Manual) PT INR APTT D-Dimer POC ABG pH ABG pH POC ABG pCO2 POC ABG pO2 ABG pO2 ABG HCO3 ABG O2 Saturation ABG Base Excess ABG Hemoglobin VBG pH Oxyhemoglobin Sodium Potassium Chloride Carbon Dioxide BUN Creatinine Glucose POC Glucose 188 H Lactic Acid Calcium Phosphorus Magnesium Iron TIBC Direct Bilirubin AST ALT Alkaline Phosphatase Total Creatine Kinase CK-MB (CK-2) C-Reactive Protein Total Protein Albumin Vitamin B12 Urine WBC (Auto) Salicylates 0.8 L Acetaminophen < 5.0 L Miscellaneous Test Crossmatch 03/31/19 03/31/19 03/31/19 01:18 03:07 03:50 WBC RBC Hgb Hct MCV MCH MCHC RDW Plt Count Lymph % (Auto) Nicholas % (Auto) Lymph # Seg Neutrophils % Seg Neuts % (Manual) Lymphocytes % (Manual) Nucleated RBC % Seg Neutrophils # Seg Neutrophils # Man Lymphocytes # (Manual) Monocytes # (Manual) PT INR APTT D-Dimer POC ABG pH ABG pH 7.525 H POC ABG pCO2 POC ABG pO2 ABG pO2 178.0 H ABG HCO3 19.5 L ABG O2 Saturation 99.2 H ABG Base Excess -3.1 L ABG Hemoglobin 5.8 L VBG pH Oxyhemoglobin Sodium Potassium Chloride Carbon Dioxide BUN Creatinine Glucose POC Glucose 114 H 107 H Lactic Acid Calcium Phosphorus Magnesium Iron TIBC Direct Bilirubin AST ALT Alkaline Phosphatase Total Creatine Kinase CK-MB (CK-2) C-Reactive Protein Total Protein Albumin Vitamin B12 Urine WBC (Auto) Salicylates Acetaminophen Miscellaneous Test Crossmatch 03/31/19 03/31/19 03/31/19 03:51 03:51 04:05 WBC RBC 1.89 L Hgb 6.1 L Hct 18.2 L* MCV MCH MCHC RDW 17.7 H Plt Count 89 L Lymph % (Auto) Nicholas % (Auto) Lymph # Seg Neutrophils % Seg Neuts % (Manual) 86.0 H Lymphocytes % (Manual) 10.0 L Nucleated RBC % 1.0 H Seg Neutrophils # Seg Neutrophils # Man Lymphocytes # (Manual) 0.7 L Monocytes # (Manual) PT INR APTT D-Dimer POC ABG pH ABG pH POC ABG pCO2 POC ABG pO2 ABG pO2 ABG HCO3 ABG O2 Saturation ABG Base Excess ABG Hemoglobin VBG pH Oxyhemoglobin Sodium 151 H Potassium 3.2 L Chloride 119.4 H Carbon Dioxide 17 L BUN 35 H Creatinine Glucose 139 H POC Glucose 153 H Lactic Acid Calcium 7.1 L Phosphorus Magnesium Iron TIBC Direct Bilirubin AST ALT Alkaline Phosphatase Total Creatine Kinase CK-MB (CK-2) C-Reactive Protein Total Protein Albumin Vitamin B12 Urine WBC (Auto) Salicylates Acetaminophen Miscellaneous Test Crossmatch 03/31/19 03/31/19 03/31/19 05:05 05:35 06:23 WBC RBC Hgb Hct MCV MCH MCHC RDW Plt Count Lymph % (Auto) Nicholas % (Auto) Lymph # Seg Neutrophils % Seg Neuts % (Manual) Lymphocytes % (Manual) Nucleated RBC % Seg Neutrophils # Seg Neutrophils # Man Lymphocytes # (Manual) Monocytes # (Manual) PT INR APTT D-Dimer POC ABG pH ABG pH POC ABG pCO2 POC ABG pO2 ABG pO2 ABG HCO3 ABG O2 Saturation ABG Base Excess ABG Hemoglobin VBG pH Oxyhemoglobin Sodium Potassium Chloride Carbon Dioxide BUN Creatinine Glucose POC Glucose 176 H 133 H Lactic Acid 3.20 H* Calcium Phosphorus Magnesium Iron TIBC Direct Bilirubin AST ALT Alkaline Phosphatase Total Creatine Kinase CK-MB (CK-2) C-Reactive Protein Total Protein Albumin Vitamin B12 Urine WBC (Auto) Salicylates Acetaminophen Miscellaneous Test Crossmatch 03/31/19 03/31/19 03/31/19 07:50 07:51 08:20 WBC RBC Hgb Hct MCV MCH MCHC RDW Plt Count Lymph % (Auto) Nicholas % (Auto) Lymph # Seg Neutrophils % Seg Neuts % (Manual) Lymphocytes % (Manual) Nucleated RBC % Seg Neutrophils # Seg Neutrophils # Man Lymphocytes # (Manual) Monocytes # (Manual) PT INR APTT D-Dimer POC ABG pH ABG pH POC ABG pCO2 POC ABG pO2 ABG pO2 ABG HCO3 ABG O2 Saturation ABG Base Excess ABG Hemoglobin VBG pH Oxyhemoglobin Sodium Potassium Chloride Carbon Dioxide BUN Creatinine Glucose POC Glucose 135 H Lactic Acid 3.30 H* Calcium Phosphorus Magnesium Iron 26 L TIBC 193 L Direct Bilirubin AST ALT Alkaline Phosphatase Total Creatine Kinase CK-MB (CK-2) C-Reactive Protein Total Protein Albumin Vitamin B12 Urine WBC (Auto) Salicylates Acetaminophen Miscellaneous Test Crossmatch 03/31/19 03/31/19 03/31/19 08:20 08:20 09:06 WBC RBC Hgb Hct MCV MCH MCHC RDW Plt Count Lymph % (Auto) Nicholas % (Auto) Lymph # Seg Neutrophils % Seg Neuts % (Manual) Lymphocytes % (Manual) Nucleated RBC % Seg Neutrophils # Seg Neutrophils # Man Lymphocytes # (Manual) Monocytes # (Manual) PT INR APTT D-Dimer POC ABG pH ABG pH POC ABG pCO2 POC ABG pO2 ABG pO2 ABG HCO3 ABG O2 Saturation ABG Base Excess ABG Hemoglobin VBG pH Oxyhemoglobin Sodium 153 H Potassium 3.0 L Chloride 118.9 H Carbon Dioxide 18 L BUN 37 H Creatinine Glucose 132 H POC Glucose 145 H Lactic Acid Calcium 7.1 L Phosphorus Magnesium Iron TIBC Direct Bilirubin AST ALT Alkaline Phosphatase Total Creatine Kinase CK-MB (CK-2) C-Reactive Protein Total Protein Albumin Vitamin B12 > 2000 H Urine WBC (Auto) Salicylates Acetaminophen Miscellaneous Test Crossmatch 03/31/19 03/31/19 03/31/19 10:47 11:49 13:04 WBC RBC Hgb Hct MCV MCH MCHC RDW Plt Count Lymph % (Auto) Nicholas % (Auto) Lymph # Seg Neutrophils % Seg Neuts % (Manual) Lymphocytes % (Manual) Nucleated RBC % Seg Neutrophils # Seg Neutrophils # Man Lymphocytes # (Manual) Monocytes # (Manual) PT INR APTT D-Dimer POC ABG pH ABG pH POC ABG pCO2 POC ABG pO2 ABG pO2 ABG HCO3 ABG O2 Saturation ABG Base Excess ABG Hemoglobin VBG pH Oxyhemoglobin Sodium Potassium Chloride Carbon Dioxide BUN Creatinine Glucose POC Glucose 153 H 174 H 214 H Lactic Acid Calcium Phosphorus Magnesium Iron TIBC Direct Bilirubin AST ALT Alkaline Phosphatase Total Creatine Kinase CK-MB (CK-2) C-Reactive Protein Total Protein Albumin Vitamin B12 Urine WBC (Auto) Salicylates Acetaminophen Miscellaneous Test Crossmatch 03/31/19 03/31/19 03/31/19 13:42 15:08 16:08 WBC RBC Hgb Hct MCV MCH MCHC RDW Plt Count Lymph % (Auto) Nicholas % (Auto) Lymph # Seg Neutrophils % Seg Neuts % (Manual) Lymphocytes % (Manual) Nucleated RBC % Seg Neutrophils # Seg Neutrophils # Man Lymphocytes # (Manual) Monocytes # (Manual) PT INR APTT D-Dimer POC ABG pH ABG pH POC ABG pCO2 POC ABG pO2 ABG pO2 ABG HCO3 ABG O2 Saturation ABG Base Excess ABG Hemoglobin VBG pH Oxyhemoglobin Sodium Potassium Chloride Carbon Dioxide BUN Creatinine Glucose POC Glucose 186 H 136 H 150 H Lactic Acid Calcium Phosphorus Magnesium Iron TIBC Direct Bilirubin AST ALT Alkaline Phosphatase Total Creatine Kinase CK-MB (CK-2) C-Reactive Protein Total Protein Albumin Vitamin B12 Urine WBC (Auto) Salicylates Acetaminophen Miscellaneous Test Crossmatch 03/31/19 03/31/19 03/31/19 17:11 17:30 17:30 WBC RBC Hgb 7.7 L Hct 23.0 L MCV MCH MCHC RDW Plt Count Lymph % (Auto) Nicholas % (Auto) Lymph # Seg Neutrophils % Seg Neuts % (Manual) Lymphocytes % (Manual) Nucleated RBC % Seg Neutrophils # Seg Neutrophils # Man Lymphocytes # (Manual) Monocytes # (Manual) PT INR APTT D-Dimer POC ABG pH ABG pH POC ABG pCO2 POC ABG pO2 ABG pO2 ABG HCO3 ABG O2 Saturation ABG Base Excess ABG Hemoglobin VBG pH Oxyhemoglobin Sodium 153 H Potassium 3.5 L Chloride 119.3 H Carbon Dioxide 20 L BUN 34 H Creatinine Glucose 162 H POC Glucose 140 H Lactic Acid Calcium 7.6 L Phosphorus Magnesium Iron TIBC Direct Bilirubin AST ALT Alkaline Phosphatase Total Creatine Kinase CK-MB (CK-2) C-Reactive Protein Total Protein Albumin Vitamin B12 Urine WBC (Auto) Salicylates Acetaminophen Miscellaneous Test Crossmatch 03/31/19 03/31/19 03/31/19 17:59 18:58 20:28 WBC RBC Hgb Hct MCV MCH MCHC RDW Plt Count Lymph % (Auto) Nicholas % (Auto) Lymph # Seg Neutrophils % Seg Neuts % (Manual) Lymphocytes % (Manual) Nucleated RBC % Seg Neutrophils # Seg Neutrophils # Man Lymphocytes # (Manual) Monocytes # (Manual) PT INR APTT D-Dimer POC ABG pH ABG pH POC ABG pCO2 POC ABG pO2 ABG pO2 ABG HCO3 ABG O2 Saturation ABG Base Excess ABG Hemoglobin VBG pH Oxyhemoglobin Sodium Potassium Chloride Carbon Dioxide BUN Creatinine Glucose POC Glucose 156 H 152 H 138 H Lactic Acid Calcium Phosphorus Magnesium Iron TIBC Direct Bilirubin AST ALT Alkaline Phosphatase Total Creatine Kinase CK-MB (CK-2) C-Reactive Protein Total Protein Albumin Vitamin B12 Urine WBC (Auto) Salicylates Acetaminophen Miscellaneous Test Crossmatch 03/31/19 03/31/19 03/31/19 21:09 22:15 23:10 WBC RBC Hgb Hct MCV MCH MCHC RDW Plt Count Lymph % (Auto) Nicholas % (Auto) Lymph # Seg Neutrophils % Seg Neuts % (Manual) Lymphocytes % (Manual) Nucleated RBC % Seg Neutrophils # Seg Neutrophils # Man Lymphocytes # (Manual) Monocytes # (Manual) PT INR APTT D-Dimer POC ABG pH ABG pH POC ABG pCO2 POC ABG pO2 ABG pO2 ABG HCO3 ABG O2 Saturation ABG Base Excess ABG Hemoglobin VBG pH Oxyhemoglobin Sodium Potassium Chloride Carbon Dioxide BUN Creatinine Glucose POC Glucose 136 H 137 H 148 H Lactic Acid Calcium Phosphorus Magnesium Iron TIBC Direct Bilirubin AST ALT Alkaline Phosphatase Total Creatine Kinase CK-MB (CK-2) C-Reactive Protein Total Protein Albumin Vitamin B12 Urine WBC (Auto) Salicylates Acetaminophen Miscellaneous Test Crossmatch 04/01/19 04/01/19 04/01/19 00:05 01:17 02:11 WBC RBC Hgb Hct MCV MCH MCHC RDW Plt Count Lymph % (Auto) Nicholas % (Auto) Lymph # Seg Neutrophils % Seg Neuts % (Manual) Lymphocytes % (Manual) Nucleated RBC % Seg Neutrophils # Seg Neutrophils # Man Lymphocytes # (Manual) Monocytes # (Manual) PT INR APTT D-Dimer POC ABG pH ABG pH POC ABG pCO2 POC ABG pO2 ABG pO2 ABG HCO3 ABG O2 Saturation ABG Base Excess ABG Hemoglobin VBG pH Oxyhemoglobin Sodium Potassium Chloride Carbon Dioxide BUN Creatinine Glucose POC Glucose 143 H 151 H 155 H Lactic Acid Calcium Phosphorus Magnesium Iron TIBC Direct Bilirubin AST ALT Alkaline Phosphatase Total Creatine Kinase CK-MB (CK-2) C-Reactive Protein Total Protein Albumin Vitamin B12 Urine WBC (Auto) Salicylates Acetaminophen Miscellaneous Test Crossmatch 04/01/19 04/01/19 04/01/19 03:12 04:03 04:16 WBC RBC Hgb Hct MCV MCH MCHC RDW Plt Count Lymph % (Auto) Nicholas % (Auto) Lymph # Seg Neutrophils % Seg Neuts % (Manual) Lymphocytes % (Manual) Nucleated RBC % Seg Neutrophils # Seg Neutrophils # Man Lymphocytes # (Manual) Monocytes # (Manual) PT INR APTT D-Dimer POC ABG pH ABG pH POC ABG pCO2 POC ABG pO2 ABG pO2 ABG HCO3 ABG O2 Saturation ABG Base Excess ABG Hemoglobin VBG pH Oxyhemoglobin Sodium Potassium Chloride Carbon Dioxide BUN Creatinine Glucose POC Glucose 140 H 143 H 142 H Lactic Acid Calcium Phosphorus Magnesium Iron TIBC Direct Bilirubin AST ALT Alkaline Phosphatase Total Creatine Kinase CK-MB (CK-2) C-Reactive Protein Total Protein Albumin Vitamin B12 Urine WBC (Auto) Salicylates Acetaminophen Miscellaneous Test Crossmatch 04/01/19 04/01/19 04/01/19 05:01 05:01 05:08 WBC RBC 2.05 L Hgb 6.8 L Hct 20.5 L MCV 100 H MCH 33 H MCHC RDW 17.7 H Plt Count 53 L Lymph % (Auto) Nicholas % (Auto) Lymph # Seg Neutrophils % Seg Neuts % (Manual) 71.0 H Lymphocytes % (Manual) Nucleated RBC % Seg Neutrophils # Seg Neutrophils # Man Lymphocytes # (Manual) Monocytes # (Manual) PT INR APTT D-Dimer POC ABG pH ABG pH POC ABG pCO2 POC ABG pO2 ABG pO2 ABG HCO3 ABG O2 Saturation ABG Base Excess ABG Hemoglobin VBG pH Oxyhemoglobin Sodium Potassium Chloride Carbon Dioxide BUN Creatinine Glucose POC Glucose 119 H Lactic Acid Calcium Phosphorus Magnesium Iron TIBC Direct Bilirubin 0.3 H AST 4601 H ALT 1542 H Alkaline Phosphatase 185 H Total Creatine Kinase CK-MB (CK-2) C-Reactive Protein Total Protein 3.8 L Albumin 1.6 L Vitamin B12 Urine WBC (Auto) Salicylates Acetaminophen Miscellaneous Test Crossmatch 04/01/19 04/01/19 04/01/19 05:23 06:37 08:15 WBC RBC Hgb Hct MCV MCH MCHC RDW Plt Count Lymph % (Auto) Nicholas % (Auto) Lymph # Seg Neutrophils % Seg Neuts % (Manual) Lymphocytes % (Manual) Nucleated RBC % Seg Neutrophils # Seg Neutrophils # Man Lymphocytes # (Manual) Monocytes # (Manual) PT INR APTT D-Dimer POC ABG pH ABG pH POC ABG pCO2 POC ABG pO2 ABG pO2 ABG HCO3 ABG O2 Saturation ABG Base Excess ABG Hemoglobin VBG pH Oxyhemoglobin Sodium Potassium Chloride Carbon Dioxide BUN Creatinine Glucose POC Glucose 115 H 124 H 138 H Lactic Acid Calcium Phosphorus Magnesium Iron TIBC Direct Bilirubin AST ALT Alkaline Phosphatase Total Creatine Kinase CK-MB (CK-2) C-Reactive Protein Total Protein Albumin Vitamin B12 Urine WBC (Auto) Salicylates Acetaminophen Miscellaneous Test Crossmatch 04/01/19 04/01/19 04/01/19 09:50 10:10 10:31 WBC RBC Hgb 6.5 L Hct 19.2 L* MCV MCH MCHC RDW Plt Count Lymph % (Auto) Nicholas % (Auto) Lymph # Seg Neutrophils % Seg Neuts % (Manual) Lymphocytes % (Manual) Nucleated RBC % Seg Neutrophils # Seg Neutrophils # Man Lymphocytes # (Manual) Monocytes # (Manual) PT INR APTT D-Dimer POC ABG pH ABG pH POC ABG pCO2 POC ABG pO2 ABG pO2 ABG HCO3 ABG O2 Saturation ABG Base Excess ABG Hemoglobin VBG pH Oxyhemoglobin Sodium 149 H Potassium 3.5 L Chloride 119.9 H Carbon Dioxide 21 L BUN 33 H Creatinine 0.5 L Glucose 142 H POC Glucose 185 H Lactic Acid Calcium 7.3 L Phosphorus Magnesium Iron TIBC Direct Bilirubin AST 3686 H ALT 1440 H Alkaline Phosphatase 185 H Total Creatine Kinase CK-MB (CK-2) C-Reactive Protein Total Protein 3.7 L Albumin 1.8 L Vitamin B12 Urine WBC (Auto) Salicylates Acetaminophen Miscellaneous Test Crossmatch 04/01/19 04/01/19 04/01/19 11:35 13:05 14:35 WBC RBC Hgb Hct MCV MCH MCHC RDW Plt Count Lymph % (Auto) Nicholas % (Auto) Lymph # Seg Neutrophils % Seg Neuts % (Manual) Lymphocytes % (Manual) Nucleated RBC % Seg Neutrophils # Seg Neutrophils # Man Lymphocytes # (Manual) Monocytes # (Manual) PT INR APTT D-Dimer POC ABG pH ABG pH POC ABG pCO2 POC ABG pO2 ABG pO2 ABG HCO3 ABG O2 Saturation ABG Base Excess ABG Hemoglobin VBG pH Oxyhemoglobin Sodium Potassium Chloride Carbon Dioxide BUN Creatinine Glucose POC Glucose 201 H 169 H 134 H Lactic Acid Calcium Phosphorus Magnesium Iron TIBC Direct Bilirubin AST ALT Alkaline Phosphatase Total Creatine Kinase CK-MB (CK-2) C-Reactive Protein Total Protein Albumin Vitamin B12 Urine WBC (Auto) Salicylates Acetaminophen Miscellaneous Test Crossmatch 04/01/19 04/01/19 04/01/19 17:13 17:14 18:30 WBC RBC Hgb Hct MCV MCH MCHC RDW Plt Count Lymph % (Auto) Nicholas % (Auto) Lymph # Seg Neutrophils % Seg Neuts % (Manual) Lymphocytes % (Manual) Nucleated RBC % Seg Neutrophils # Seg Neutrophils # Man Lymphocytes # (Manual) Monocytes # (Manual) PT INR APTT D-Dimer 5203.68 H POC ABG pH ABG pH POC ABG pCO2 POC ABG pO2 ABG pO2 ABG HCO3 ABG O2 Saturation ABG Base Excess ABG Hemoglobin VBG pH Oxyhemoglobin Sodium Potassium Chloride Carbon Dioxide BUN Creatinine Glucose POC Glucose 69 L 128 H Lactic Acid Calcium Phosphorus Magnesium Iron TIBC Direct Bilirubin AST ALT Alkaline Phosphatase Total Creatine Kinase CK-MB (CK-2) C-Reactive Protein Total Protein Albumin Vitamin B12 Urine WBC (Auto) Salicylates Acetaminophen Miscellaneous Test Crossmatch 04/01/19 04/01/19 04/02/19 22:50 Unknown 03:40 WBC RBC Hgb Hct MCV MCH MCHC RDW Plt Count Lymph % (Auto) Nicholas % (Auto) Lymph # Seg Neutrophils % Seg Neuts % (Manual) Lymphocytes % (Manual) Nucleated RBC % Seg Neutrophils # Seg Neutrophils # Man Lymphocytes # (Manual) Monocytes # (Manual) PT INR APTT D-Dimer POC ABG pH ABG pH POC ABG pCO2 POC ABG pO2 ABG pO2 78.3 L 142.8 H ABG HCO3 15.5 L ABG O2 Saturation ABG Base Excess -3.5 L -8.2 L ABG Hemoglobin 6.8 L 8.2 L VBG pH Oxyhemoglobin 94.3 L Sodium Potassium Chloride Carbon Dioxide BUN Creatinine Glucose POC Glucose 342 H Lactic Acid Calcium Phosphorus Magnesium Iron TIBC Direct Bilirubin AST ALT Alkaline Phosphatase Total Creatine Kinase CK-MB (CK-2) C-Reactive Protein Total Protein Albumin Vitamin B12 Urine WBC (Auto) Salicylates Acetaminophen Miscellaneous Test Crossmatch 04/02/19 04/02/19 04/02/19 03:49 06:50 07:48 WBC RBC 2.65 L Hgb 8.6 L Hct 25.1 L MCV MCH MCHC RDW 17.6 H Plt Count 48 L Lymph % (Auto) Nicholas % (Auto) Lymph # Seg Neutrophils % Seg Neuts % (Manual) Lymphocytes % (Manual) Nucleated RBC % Seg Neutrophils # Seg Neutrophils # Man Lymphocytes # (Manual) Monocytes # (Manual) PT INR APTT D-Dimer POC ABG pH ABG pH POC ABG pCO2 POC ABG pO2 ABG pO2 ABG HCO3 ABG O2 Saturation ABG Base Excess ABG Hemoglobin VBG pH Oxyhemoglobin Sodium Potassium Chloride Carbon Dioxide BUN Creatinine Glucose POC Glucose 247 H 200 H Lactic Acid Calcium Phosphorus Magnesium Iron TIBC Direct Bilirubin AST ALT Alkaline Phosphatase Total Creatine Kinase CK-MB (CK-2) C-Reactive Protein Total Protein Albumin Vitamin B12 Urine WBC (Auto) Salicylates Acetaminophen Miscellaneous Test Crossmatch 04/02/19 04/02/19 04/02/19 07:48 11:18 14:07 WBC RBC Hgb Hct MCV MCH MCHC RDW Plt Count Lymph % (Auto) Nicholas % (Auto) Lymph # Seg Neutrophils % Seg Neuts % (Manual) Lymphocytes % (Manual) Nucleated RBC % Seg Neutrophils # Seg Neutrophils # Man Lymphocytes # (Manual) Monocytes # (Manual) PT INR APTT D-Dimer POC ABG pH ABG pH POC ABG pCO2 POC ABG pO2 ABG pO2 ABG HCO3 ABG O2 Saturation ABG Base Excess ABG Hemoglobin VBG pH Oxyhemoglobin Sodium Potassium 3.5 L Chloride 115.7 H Carbon Dioxide 19 L BUN 29 H Creatinine 0.5 L Glucose 159 H POC Glucose 154 H 149 H Lactic Acid Calcium 7.5 L Phosphorus Magnesium Iron TIBC Direct Bilirubin AST 1418 H ALT 1134 H Alkaline Phosphatase 242 H Total Creatine Kinase CK-MB (CK-2) C-Reactive Protein Total Protein 4.2 L Albumin 2.1 L Vitamin B12 Urine WBC (Auto) Salicylates Acetaminophen Miscellaneous Test Crossmatch 04/02/19 04/02/19 04/02/19 18:09 19:46 23:05 WBC RBC Hgb Hct MCV MCH MCHC RDW Plt Count Lymph % (Auto) Nicholas % (Auto) Lymph # Seg Neutrophils % Seg Neuts % (Manual) Lymphocytes % (Manual) Nucleated RBC % Seg Neutrophils # Seg Neutrophils # Man Lymphocytes # (Manual) Monocytes # (Manual) PT INR APTT D-Dimer POC ABG pH ABG pH POC ABG pCO2 POC ABG pO2 ABG pO2 ABG HCO3 ABG O2 Saturation ABG Base Excess ABG Hemoglobin VBG pH Oxyhemoglobin Sodium Potassium Chloride Carbon Dioxide BUN Creatinine Glucose POC Glucose 188 H 209 H 247 H Lactic Acid Calcium Phosphorus Magnesium Iron TIBC Direct Bilirubin AST ALT Alkaline Phosphatase Total Creatine Kinase CK-MB (CK-2) C-Reactive Protein Total Protein Albumin Vitamin B12 Urine WBC (Auto) Salicylates Acetaminophen Miscellaneous Test Crossmatch 04/03/19 04/03/19 04/03/19 02:58 03:40 03:40 WBC RBC 2.87 L Hgb 9.3 L Hct 27.0 L MCV MCH MCHC RDW 17.2 H Plt Count 65 L Lymph % (Auto) Nicholas % (Auto) 9.8 H Lymph # 1.1 L Seg Neutrophils % Seg Neuts % (Manual) Lymphocytes % (Manual) Nucleated RBC % Seg Neutrophils # Seg Neutrophils # Man Lymphocytes # (Manual) Monocytes # (Manual) PT INR APTT D-Dimer POC ABG pH ABG pH POC ABG pCO2 POC ABG pO2 ABG pO2 ABG HCO3 ABG O2 Saturation ABG Base Excess ABG Hemoglobin VBG pH Oxyhemoglobin Sodium 147 H Potassium 3.5 L Chloride 116.7 H Carbon Dioxide 18 L BUN Creatinine 0.4 L Glucose 150 H POC Glucose 166 H Lactic Acid Calcium 8.1 L Phosphorus 2.20 L Magnesium Iron TIBC Direct Bilirubin AST 594 H ALT 861 H Alkaline Phosphatase 299 H Total Creatine Kinase CK-MB (CK-2) C-Reactive Protein Total Protein 4.4 L Albumin 2.1 L Vitamin B12 Urine WBC (Auto) Salicylates Acetaminophen Miscellaneous Test Crossmatch 04/03/19 04/03/19 04/03/19 05:35 07:02 08:23 WBC RBC Hgb Hct MCV MCH MCHC RDW Plt Count Lymph % (Auto) Nicholas % (Auto) Lymph # Seg Neutrophils % Seg Neuts % (Manual) Lymphocytes % (Manual) Nucleated RBC % Seg Neutrophils # Seg Neutrophils # Man Lymphocytes # (Manual) Monocytes # (Manual) PT INR APTT D-Dimer POC ABG pH ABG pH POC ABG pCO2 POC ABG pO2 ABG pO2 97.7 H ABG HCO3 19.3 L ABG O2 Saturation ABG Base Excess -5.0 L ABG Hemoglobin 8.0 L VBG pH Oxyhemoglobin Sodium Potassium Chloride Carbon Dioxide BUN Creatinine Glucose POC Glucose 135 H 132 H Lactic Acid Calcium Phosphorus Magnesium Iron TIBC Direct Bilirubin AST ALT Alkaline Phosphatase Total Creatine Kinase CK-MB (CK-2) C-Reactive Protein Total Protein Albumin Vitamin B12 Urine WBC (Auto) Salicylates Acetaminophen Miscellaneous Test Crossmatch 04/03/19 04/03/19 04/03/19 11:58 15:11 17:53 WBC RBC Hgb Hct MCV MCH MCHC RDW Plt Count Lymph % (Auto) Nicholas % (Auto) Lymph # Seg Neutrophils % Seg Neuts % (Manual) Lymphocytes % (Manual) Nucleated RBC % Seg Neutrophils # Seg Neutrophils # Man Lymphocytes # (Manual) Monocytes # (Manual) PT INR APTT D-Dimer POC ABG pH ABG pH POC ABG pCO2 POC ABG pO2 ABG pO2 ABG HCO3 ABG O2 Saturation ABG Base Excess ABG Hemoglobin VBG pH Oxyhemoglobin Sodium Potassium Chloride Carbon Dioxide BUN Creatinine Glucose POC Glucose 179 H 213 H 223 H Lactic Acid Calcium Phosphorus Magnesium Iron TIBC Direct Bilirubin AST ALT Alkaline Phosphatase Total Creatine Kinase CK-MB (CK-2) C-Reactive Protein Total Protein Albumin Vitamin B12 Urine WBC (Auto) Salicylates Acetaminophen Miscellaneous Test Crossmatch 04/03/19 04/04/19 04/04/19 23:06 02:36 06:41 WBC RBC Hgb Hct MCV MCH MCHC RDW Plt Count Lymph % (Auto) Nicholas % (Auto) Lymph # Seg Neutrophils % Seg Neuts % (Manual) Lymphocytes % (Manual) Nucleated RBC % Seg Neutrophils # Seg Neutrophils # Man Lymphocytes # (Manual) Monocytes # (Manual) PT INR APTT D-Dimer POC ABG pH ABG pH POC ABG pCO2 POC ABG pO2 ABG pO2 ABG HCO3 ABG O2 Saturation ABG Base Excess ABG Hemoglobin VBG pH Oxyhemoglobin Sodium Potassium Chloride Carbon Dioxide BUN Creatinine Glucose POC Glucose 189 H 157 H 131 H Lactic Acid Calcium Phosphorus Magnesium Iron TIBC Direct Bilirubin AST ALT Alkaline Phosphatase Total Creatine Kinase CK-MB (CK-2) C-Reactive Protein Total Protein Albumin Vitamin B12 Urine WBC (Auto) Salicylates Acetaminophen Miscellaneous Test Crossmatch 04/04/19 04/04/19 04/04/19 11:42 15:45 18:21 WBC RBC Hgb Hct MCV MCH MCHC RDW Plt Count Lymph % (Auto) Nicholas % (Auto) Lymph # Seg Neutrophils % Seg Neuts % (Manual) Lymphocytes % (Manual) Nucleated RBC % Seg Neutrophils # Seg Neutrophils # Man Lymphocytes # (Manual) Monocytes # (Manual) PT INR APTT D-Dimer POC ABG pH ABG pH POC ABG pCO2 POC ABG pO2 ABG pO2 ABG HCO3 ABG O2 Saturation ABG Base Excess ABG Hemoglobin VBG pH Oxyhemoglobin Sodium Potassium Chloride Carbon Dioxide BUN Creatinine Glucose POC Glucose 233 H 236 H 255 H Lactic Acid Calcium Phosphorus Magnesium Iron TIBC Direct Bilirubin AST ALT Alkaline Phosphatase Total Creatine Kinase CK-MB (CK-2) C-Reactive Protein Total Protein Albumin Vitamin B12 Urine WBC (Auto) Salicylates Acetaminophen Miscellaneous Test Crossmatch 04/04/19 04/05/19 04/05/19 21:21 03:06 06:05 WBC RBC 2.68 L Hgb 8.5 L Hct 26.3 L MCV 98 H MCH MCHC RDW 17.4 H Plt Count Lymph % (Auto) Nicholas % (Auto) Lymph # Seg Neutrophils % Seg Neuts % (Manual) Lymphocytes % (Manual) Nucleated RBC % Seg Neutrophils # Seg Neutrophils # Man Lymphocytes # (Manual) Monocytes # (Manual) PT INR APTT D-Dimer POC ABG pH ABG pH POC ABG pCO2 POC ABG pO2 ABG pO2 ABG HCO3 ABG O2 Saturation ABG Base Excess ABG Hemoglobin VBG pH Oxyhemoglobin Sodium Potassium Chloride Carbon Dioxide BUN Creatinine Glucose POC Glucose 132 H 161 H Lactic Acid Calcium Phosphorus Magnesium Iron TIBC Direct Bilirubin AST ALT Alkaline Phosphatase Total Creatine Kinase CK-MB (CK-2) C-Reactive Protein Total Protein Albumin Vitamin B12 Urine WBC (Auto) Salicylates Acetaminophen Miscellaneous Test Crossmatch 04/05/19 04/05/19 04/05/19 06:05 06:49 10:23 WBC RBC Hgb Hct MCV MCH MCHC RDW Plt Count Lymph % (Auto) Nicholas % (Auto) Lymph # Seg Neutrophils % Seg Neuts % (Manual) Lymphocytes % (Manual) Nucleated RBC % Seg Neutrophils # Seg Neutrophils # Man Lymphocytes # (Manual) Monocytes # (Manual) PT INR APTT D-Dimer POC ABG pH ABG pH POC ABG pCO2 POC ABG pO2 ABG pO2 ABG HCO3 ABG O2 Saturation ABG Base Excess ABG Hemoglobin VBG pH Oxyhemoglobin Sodium Potassium Chloride 112.5 H Carbon Dioxide BUN Creatinine 0.2 L Glucose 237 H POC Glucose 283 H 296 H Lactic Acid Calcium 7.9 L Phosphorus Magnesium Iron TIBC Direct Bilirubin AST ALT Alkaline Phosphatase Total Creatine Kinase CK-MB (CK-2) C-Reactive Protein Total Protein Albumin Vitamin B12 Urine WBC (Auto) Salicylates Acetaminophen Miscellaneous Test Crossmatch 04/05/19 04/05/19 04/05/19 14:46 18:19 20:35 WBC RBC Hgb Hct MCV MCH MCHC RDW Plt Count Lymph % (Auto) Nicholas % (Auto) Lymph # Seg Neutrophils % Seg Neuts % (Manual) Lymphocytes % (Manual) Nucleated RBC % Seg Neutrophils # Seg Neutrophils # Man Lymphocytes # (Manual) Monocytes # (Manual) PT INR APTT D-Dimer POC ABG pH ABG pH POC ABG pCO2 POC ABG pO2 ABG pO2 ABG HCO3 ABG O2 Saturation ABG Base Excess ABG Hemoglobin VBG pH Oxyhemoglobin Sodium Potassium Chloride Carbon Dioxide BUN Creatinine Glucose POC Glucose 225 H 259 H 236 H Lactic Acid Calcium Phosphorus Magnesium Iron TIBC Direct Bilirubin AST ALT Alkaline Phosphatase Total Creatine Kinase CK-MB (CK-2) C-Reactive Protein Total Protein Albumin Vitamin B12 Urine WBC (Auto) Salicylates Acetaminophen Miscellaneous Test Crossmatch 04/05/19 04/06/19 04/06/19 23:11 00:06 03:14 WBC RBC Hgb Hct MCV MCH MCHC RDW Plt Count Lymph % (Auto) Nicholas % (Auto) Lymph # Seg Neutrophils % Seg Neuts % (Manual) Lymphocytes % (Manual) Nucleated RBC % Seg Neutrophils # Seg Neutrophils # Man Lymphocytes # (Manual) Monocytes # (Manual) PT INR APTT D-Dimer 4526.86 H POC ABG pH ABG pH POC ABG pCO2 POC ABG pO2 ABG pO2 ABG HCO3 ABG O2 Saturation ABG Base Excess ABG Hemoglobin VBG pH Oxyhemoglobin Sodium Potassium Chloride Carbon Dioxide BUN Creatinine Glucose POC Glucose 205 H 228 H Lactic Acid Calcium Phosphorus Magnesium Iron TIBC Direct Bilirubin AST ALT Alkaline Phosphatase Total Creatine Kinase CK-MB (CK-2) C-Reactive Protein Total Protein Albumin Vitamin B12 Urine WBC (Auto) Salicylates Acetaminophen Miscellaneous Test Crossmatch 04/06/19 04/06/19 04/06/19 05:20 05:20 07:57 WBC 15.1 H RBC 2.90 L Hgb 9.1 L Hct 28.0 L MCV MCH MCHC RDW 17.3 H Plt Count Lymph % (Auto) Nicholas % (Auto) Lymph # Seg Neutrophils % Seg Neuts % (Manual) Lymphocytes % (Manual) Nucleated RBC % Seg Neutrophils # Seg Neutrophils # Man Lymphocytes # (Manual) Monocytes # (Manual) PT INR APTT D-Dimer POC ABG pH ABG pH POC ABG pCO2 POC ABG pO2 ABG pO2 ABG HCO3 ABG O2 Saturation ABG Base Excess ABG Hemoglobin VBG pH Oxyhemoglobin Sodium Potassium Chloride Carbon Dioxide BUN Creatinine 0.2 L Glucose 161 H POC Glucose 191 H Lactic Acid Calcium 8.0 L Phosphorus Magnesium Iron TIBC Direct Bilirubin AST ALT Alkaline Phosphatase Total Creatine Kinase CK-MB (CK-2) C-Reactive Protein Total Protein Albumin Vitamin B12 Urine WBC (Auto) Salicylates Acetaminophen Miscellaneous Test Crossmatch 04/06/19 04/06/19 04/06/19 12:09 18:24 22:07 WBC RBC Hgb Hct MCV MCH MCHC RDW Plt Count Lymph % (Auto) Nicholas % (Auto) Lymph # Seg Neutrophils % Seg Neuts % (Manual) Lymphocytes % (Manual) Nucleated RBC % Seg Neutrophils # Seg Neutrophils # Man Lymphocytes # (Manual) Monocytes # (Manual) PT INR APTT D-Dimer POC ABG pH ABG pH POC ABG pCO2 POC ABG pO2 ABG pO2 ABG HCO3 ABG O2 Saturation ABG Base Excess ABG Hemoglobin VBG pH Oxyhemoglobin Sodium Potassium Chloride Carbon Dioxide BUN Creatinine Glucose POC Glucose 143 H 161 H 140 H Lactic Acid Calcium Phosphorus Magnesium Iron TIBC Direct Bilirubin AST ALT Alkaline Phosphatase Total Creatine Kinase CK-MB (CK-2) C-Reactive Protein Total Protein Albumin Vitamin B12 Urine WBC (Auto) Salicylates Acetaminophen Miscellaneous Test Crossmatch 04/07/19 04/07/19 04/07/19 03:00 04:30 04:30 WBC 13.0 H RBC 2.65 L Hgb 8.3 L Hct 25.5 L MCV MCH MCHC RDW 17.0 H Plt Count Lymph % (Auto) Nicholas % (Auto) Lymph # Seg Neutrophils % Seg Neuts % (Manual) Lymphocytes % (Manual) Nucleated RBC % Seg Neutrophils # Seg Neutrophils # Man Lymphocytes # (Manual) Monocytes # (Manual) PT INR APTT D-Dimer POC ABG pH ABG pH POC ABG pCO2 POC ABG pO2 ABG pO2 ABG HCO3 ABG O2 Saturation ABG Base Excess ABG Hemoglobin VBG pH Oxyhemoglobin Sodium Potassium Chloride Carbon Dioxide BUN Creatinine 0.2 L Glucose 208 H POC Glucose 224 H Lactic Acid Calcium 7.7 L Phosphorus Magnesium Iron TIBC Direct Bilirubin AST ALT Alkaline Phosphatase Total Creatine Kinase CK-MB (CK-2) C-Reactive Protein Total Protein Albumin Vitamin B12 Urine WBC (Auto) Salicylates Acetaminophen Miscellaneous Test Crossmatch 04/07/19 04/07/19 04/07/19 05:47 08:27 10:33 WBC RBC Hgb Hct MCV MCH MCHC RDW Plt Count Lymph % (Auto) Nicholas % (Auto) Lymph # Seg Neutrophils % Seg Neuts % (Manual) Lymphocytes % (Manual) Nucleated RBC % Seg Neutrophils # Seg Neutrophils # Man Lymphocytes # (Manual) Monocytes # (Manual) PT INR APTT D-Dimer POC ABG pH ABG pH POC ABG pCO2 POC ABG pO2 ABG pO2 ABG HCO3 ABG O2 Saturation ABG Base Excess ABG Hemoglobin VBG pH Oxyhemoglobin Sodium Potassium Chloride Carbon Dioxide BUN Creatinine Glucose POC Glucose 225 H 176 H 207 H Lactic Acid Calcium Phosphorus Magnesium Iron TIBC Direct Bilirubin AST ALT Alkaline Phosphatase Total Creatine Kinase CK-MB (CK-2) C-Reactive Protein Total Protein Albumin Vitamin B12 Urine WBC (Auto) Salicylates Acetaminophen Miscellaneous Test Crossmatch 04/07/19 04/07/19 04/07/19 14:13 18:32 22:42 WBC RBC Hgb Hct MCV MCH MCHC RDW Plt Count Lymph % (Auto) Nicholas % (Auto) Lymph # Seg Neutrophils % Seg Neuts % (Manual) Lymphocytes % (Manual) Nucleated RBC % Seg Neutrophils # Seg Neutrophils # Man Lymphocytes # (Manual) Monocytes # (Manual) PT INR APTT D-Dimer POC ABG pH ABG pH POC ABG pCO2 POC ABG pO2 ABG pO2 ABG HCO3 ABG O2 Saturation ABG Base Excess ABG Hemoglobin VBG pH Oxyhemoglobin Sodium Potassium Chloride Carbon Dioxide BUN Creatinine Glucose POC Glucose 219 H 227 H 238 H Lactic Acid Calcium Phosphorus Magnesium Iron TIBC Direct Bilirubin AST ALT Alkaline Phosphatase Total Creatine Kinase CK-MB (CK-2) C-Reactive Protein Total Protein Albumin Vitamin B12 Urine WBC (Auto) Salicylates Acetaminophen Miscellaneous Test Crossmatch 04/08/19 04/08/19 04/08/19 02:31 05:37 14:10 WBC RBC Hgb Hct MCV MCH MCHC RDW Plt Count Lymph % (Auto) Nicholas % (Auto) Lymph # Seg Neutrophils % Seg Neuts % (Manual) Lymphocytes % (Manual) Nucleated RBC % Seg Neutrophils # Seg Neutrophils # Man Lymphocytes # (Manual) Monocytes # (Manual) PT INR APTT D-Dimer POC ABG pH ABG pH POC ABG pCO2 POC ABG pO2 ABG pO2 ABG HCO3 ABG O2 Saturation ABG Base Excess ABG Hemoglobin VBG pH Oxyhemoglobin Sodium Potassium Chloride Carbon Dioxide BUN Creatinine Glucose POC Glucose 194 H 194 H 139 H Lactic Acid Calcium Phosphorus Magnesium Iron TIBC Direct Bilirubin AST ALT Alkaline Phosphatase Total Creatine Kinase CK-MB (CK-2) C-Reactive Protein Total Protein Albumin Vitamin B12 Urine WBC (Auto) Salicylates Acetaminophen Miscellaneous Test Crossmatch 04/08/19 04/08/19 04/09/19 17:43 23:20 03:28 WBC RBC Hgb Hct MCV MCH MCHC RDW Plt Count Lymph % (Auto) Nicholas % (Auto) Lymph # Seg Neutrophils % Seg Neuts % (Manual) Lymphocytes % (Manual) Nucleated RBC % Seg Neutrophils # Seg Neutrophils # Man Lymphocytes # (Manual) Monocytes # (Manual) PT INR APTT D-Dimer POC ABG pH ABG pH POC ABG pCO2 POC ABG pO2 ABG pO2 ABG HCO3 ABG O2 Saturation ABG Base Excess ABG Hemoglobin VBG pH Oxyhemoglobin Sodium Potassium Chloride Carbon Dioxide BUN Creatinine Glucose POC Glucose 261 H 277 H 301 H Lactic Acid Calcium Phosphorus Magnesium Iron TIBC Direct Bilirubin AST ALT Alkaline Phosphatase Total Creatine Kinase CK-MB (CK-2) C-Reactive Protein Total Protein Albumin Vitamin B12 Urine WBC (Auto) Salicylates Acetaminophen Miscellaneous Test Crossmatch 04/09/19 04/09/19 04/09/19 05:35 05:35 05:35 WBC RBC 2.78 L Hgb 9.0 L Hct 26.7 L MCV MCH MCHC RDW 17.0 H Plt Count Lymph % (Auto) Nicholas % (Auto) Lymph # Seg Neutrophils % Seg Neuts % (Manual) Lymphocytes % (Manual) Nucleated RBC % Seg Neutrophils # Seg Neutrophils # Man Lymphocytes # (Manual) Monocytes # (Manual) PT INR APTT D-Dimer POC ABG pH ABG pH POC ABG pCO2 POC ABG pO2 ABG pO2 ABG HCO3 ABG O2 Saturation ABG Base Excess ABG Hemoglobin VBG pH Oxyhemoglobin Sodium Potassium Chloride Carbon Dioxide 31 H BUN Creatinine 0.2 L Glucose 218 H POC Glucose 240 H Lactic Acid Calcium Phosphorus Magnesium Iron TIBC Direct Bilirubin AST ALT Alkaline Phosphatase Total Creatine Kinase CK-MB (CK-2) C-Reactive Protein Total Protein Albumin Vitamin B12 Urine WBC (Auto) Salicylates Acetaminophen Miscellaneous Test Crossmatch 04/09/19 04/09/19 04/09/19 09:01 12:23 17:33 WBC RBC Hgb Hct MCV MCH MCHC RDW Plt Count Lymph % (Auto) [place] % (Auto) Lymph # Seg Neutrophils % Seg Neuts % (Manual) Lymphocytes % (Manual) Nucleated RBC % Seg Neutrophils # Seg Neutrophils # Man Lymphocytes # (Manual) Monocytes # (Manual) PT INR APTT D-Dimer POC ABG pH ABG pH POC ABG pCO2 POC ABG pO2 ABG pO2 ABG HCO3 ABG O2 Saturation ABG Base Excess ABG Hemoglobin VBG pH Oxyhemoglobin Sodium Potassium Chloride Carbon Dioxide BUN Creatinine Glucose POC Glucose 160 H 162 H 149 H Lactic Acid Calcium Phosphorus Magnesium Iron TIBC Direct Bilirubin AST ALT Alkaline Phosphatase Total Creatine Kinase CK-MB (CK-2) C-Reactive Protein Total Protein Albumin Vitamin B12 Urine WBC (Auto) Salicylates Acetaminophen Miscellaneous Test Crossmatch 04/09/19 04/09/19 04/10/19 21:26 22:28 03:16 WBC RBC Hgb Hct MCV MCH MCHC RDW Plt Count Lymph % (Auto) [place] % (Auto) Lymph # Seg Neutrophils % Seg Neuts % (Manual) Lymphocytes % (Manual) Nucleated RBC % Seg Neutrophils # Seg Neutrophils # Man Lymphocytes # (Manual) Monocytes # (Manual) PT INR APTT D-Dimer POC ABG pH ABG pH POC ABG pCO2 POC ABG pO2 ABG pO2 ABG HCO3 ABG O2 Saturation ABG Base Excess ABG Hemoglobin VBG pH Oxyhemoglobin Sodium Potassium Chloride Carbon Dioxide BUN Creatinine Glucose POC Glucose 196 H 224 H 163 H Lactic Acid Calcium Phosphorus Magnesium Iron TIBC Direct Bilirubin AST ALT Alkaline Phosphatase Total Creatine Kinase CK-MB (CK-2) C-Reactive Protein Total Protein Albumin Vitamin B12 Urine WBC (Auto) Salicylates Acetaminophen Miscellaneous Test Crossmatch 04/10/19 04/10/19 04/10/19 04:15 04:15 05:30 WBC RBC 2.88 L Hgb 9.2 L Hct 27.9 L MCV MCH MCHC RDW 17.0 H Plt Count 454 H Lymph % (Auto) Nicholas % (Auto) Lymph # Seg Neutrophils % Seg Neuts % (Manual) Lymphocytes % (Manual) Nucleated RBC % Seg Neutrophils # Seg Neutrophils # Man Lymphocytes # (Manual) Monocytes # (Manual) PT INR APTT D-Dimer POC ABG pH ABG pH POC ABG pCO2 POC ABG pO2 ABG pO2 ABG HCO3 ABG O2 Saturation ABG Base Excess ABG Hemoglobin VBG pH Oxyhemoglobin Sodium Potassium Chloride Carbon Dioxide 32 H BUN Creatinine 0.2 L Glucose 126 H POC Glucose 135 H Lactic Acid Calcium Phosphorus Magnesium Iron TIBC Direct Bilirubin AST ALT Alkaline Phosphatase Total Creatine Kinase CK-MB (CK-2) C-Reactive Protein Total Protein Albumin Vitamin B12 Urine WBC (Auto) Salicylates Acetaminophen Miscellaneous Test Crossmatch 04/10/19 04/10/19 04/10/19 12:14 15:29 23:38 WBC RBC Hgb Hct MCV MCH MCHC RDW Plt Count Lymph % (Auto) [place] % (Auto) Lymph # Seg Neutrophils % Seg Neuts % (Manual) Lymphocytes % (Manual) Nucleated RBC % Seg Neutrophils # Seg Neutrophils # Man Lymphocytes # (Manual) Monocytes # (Manual) PT INR APTT D-Dimer POC ABG pH ABG pH POC ABG pCO2 POC ABG pO2 ABG pO2 ABG HCO3 ABG O2 Saturation ABG Base Excess ABG Hemoglobin VBG pH Oxyhemoglobin Sodium Potassium Chloride Carbon Dioxide BUN Creatinine Glucose POC Glucose 109 H 149 H 268 H Lactic Acid Calcium Phosphorus Magnesium Iron TIBC Direct Bilirubin AST ALT Alkaline Phosphatase Total Creatine Kinase CK-MB (CK-2) C-Reactive Protein Total Protein Albumin Vitamin B12 Urine WBC (Auto) Salicylates Acetaminophen Miscellaneous Test Crossmatch 04/11/19 04/11/19 04/11/19 05:27 12:08 18:08 WBC RBC Hgb Hct MCV MCH MCHC RDW Plt Count Lymph % (Auto) [place] % (Auto) Lymph # Seg Neutrophils % Seg Neuts % (Manual) Lymphocytes % (Manual) Nucleated RBC % Seg Neutrophils # Seg Neutrophils # Man Lymphocytes # (Manual) Monocytes # (Manual) PT INR APTT D-Dimer POC ABG pH ABG pH POC ABG pCO2 POC ABG pO2 ABG pO2 ABG HCO3 ABG O2 Saturation ABG Base Excess ABG Hemoglobin VBG pH Oxyhemoglobin Sodium Potassium Chloride Carbon Dioxide BUN Creatinine Glucose POC Glucose 109 H 185 H 190 H Lactic Acid Calcium Phosphorus Magnesium Iron TIBC Direct Bilirubin AST ALT Alkaline Phosphatase Total Creatine Kinase CK-MB (CK-2) C-Reactive Protein Total Protein Albumin Vitamin B12 Urine WBC (Auto) Salicylates Acetaminophen Miscellaneous Test Crossmatch 04/11/19 04/12/19 04/12/19 23:23 06:00 11:42 WBC RBC Hgb Hct MCV MCH MCHC RDW Plt Count Lymph % (Auto) [place] % (Auto) Lymph # Seg Neutrophils % Seg Neuts % (Manual) Lymphocytes % (Manual) Nucleated RBC % Seg Neutrophils # Seg Neutrophils # Man Lymphocytes # (Manual) Monocytes # (Manual) PT INR APTT D-Dimer POC ABG pH ABG pH POC ABG pCO2 POC ABG pO2 ABG pO2 ABG HCO3 ABG O2 Saturation ABG Base Excess ABG Hemoglobin VBG pH Oxyhemoglobin Sodium Potassium Chloride Carbon Dioxide BUN Creatinine Glucose POC Glucose 127 H 201 H 161 H Lactic Acid Calcium Phosphorus Magnesium Iron TIBC Direct Bilirubin AST ALT Alkaline Phosphatase Total Creatine Kinase CK-MB (CK-2) C-Reactive Protein Total Protein Albumin Vitamin B12 Urine WBC (Auto) Salicylates Acetaminophen Miscellaneous Test Crossmatch 04/12/19 04/12/19 04/12/19 17:56 20:07 21:59 WBC RBC Hgb Hct MCV MCH MCHC RDW Plt Count Lymph % (Auto) [place] % (Auto) Lymph # Seg Neutrophils % Seg Neuts % (Manual) Lymphocytes % (Manual) Nucleated RBC % Seg Neutrophils # Seg Neutrophils # Man Lymphocytes # (Manual) Monocytes # (Manual) PT INR APTT D-Dimer POC ABG pH ABG pH POC ABG pCO2 POC ABG pO2 ABG pO2 ABG HCO3 ABG O2 Saturation ABG Base Excess ABG Hemoglobin VBG pH Oxyhemoglobin Sodium Potassium Chloride Carbon Dioxide BUN Creatinine Glucose POC Glucose 145 H 158 H 203 H Lactic Acid Calcium Phosphorus Magnesium Iron TIBC Direct Bilirubin AST ALT Alkaline Phosphatase Total Creatine Kinase CK-MB (CK-2) C-Reactive Protein Total Protein Albumin Vitamin B12 Urine WBC (Auto) Salicylates Acetaminophen Miscellaneous Test Crossmatch 04/12/19 04/13/19 04/13/19 23:37 08:50 08:50 WBC 15.7 H RBC 3.12 L Hgb Hct 30.2 L MCV MCH 33 H MCHC RDW 18.0 H Plt Count 678 H Lymph % (Auto) Nicholas % (Auto) Lymph # Seg Neutrophils % Seg Neuts % (Manual) Lymphocytes % (Manual) Nucleated RBC % Seg Neutrophils # Seg Neutrophils # Man Lymphocytes # (Manual) Monocytes # (Manual) PT INR APTT D-Dimer POC ABG pH ABG pH POC ABG pCO2 POC ABG pO2 ABG pO2 ABG HCO3 ABG O2 Saturation ABG Base Excess ABG Hemoglobin VBG pH Oxyhemoglobin Sodium Potassium Chloride Carbon Dioxide BUN Creatinine < 0.2 L Glucose 46 L POC Glucose 238 H Lactic Acid Calcium Phosphorus Magnesium Iron TIBC Direct Bilirubin AST ALT Alkaline Phosphatase Total Creatine Kinase CK-MB (CK-2) C-Reactive Protein Total Protein Albumin Vitamin B12 Urine WBC (Auto) Salicylates Acetaminophen Miscellaneous Test Crossmatch 04/13/19 04/13/19 04/13/19 11:56 17:27 23:57 WBC RBC Hgb Hct MCV MCH MCHC RDW Plt Count Lymph % (Auto) [place] % (Auto) Lymph # Seg Neutrophils % Seg Neuts % (Manual) Lymphocytes % (Manual) Nucleated RBC % Seg Neutrophils # Seg Neutrophils # Man Lymphocytes # (Manual) Monocytes # (Manual) PT INR APTT D-Dimer POC ABG pH ABG pH POC ABG pCO2 POC ABG pO2 ABG pO2 ABG HCO3 ABG O2 Saturation ABG Base Excess ABG Hemoglobin VBG pH Oxyhemoglobin Sodium Potassium Chloride Carbon Dioxide BUN Creatinine Glucose POC Glucose 40 L 66 L 65 L Lactic Acid Calcium Phosphorus Magnesium Iron TIBC Direct Bilirubin AST ALT Alkaline Phosphatase Total Creatine Kinase CK-MB (CK-2) C-Reactive Protein Total Protein Albumin Vitamin B12 Urine WBC (Auto) Salicylates Acetaminophen Miscellaneous Test Crossmatch 04/14/19 04/14/19 04/14/19 05:28 08:20 08:20 WBC 17.8 H RBC 3.26 L Hgb Hct MCV 98 H MCH MCHC RDW 18.3 H Plt Count 622 H Lymph % (Auto) [place] % (Auto) Lymph # Seg Neutrophils % Seg Neuts % (Manual) Lymphocytes % (Manual) Nucleated RBC % Seg Neutrophils # Seg Neutrophils # Man Lymphocytes # (Manual) Monocytes # (Manual) PT INR APTT D-Dimer POC ABG pH ABG pH POC ABG pCO2 POC ABG pO2 ABG pO2 ABG HCO3 ABG O2 Saturation ABG Base Excess ABG Hemoglobin VBG pH Oxyhemoglobin Sodium Potassium Chloride Carbon Dioxide BUN 6 L Creatinine < 0.2 L Glucose 154 H POC Glucose 149 H Lactic Acid Calcium Phosphorus Magnesium Iron TIBC Direct Bilirubin AST ALT Alkaline Phosphatase Total Creatine Kinase CK-MB (CK-2) C-Reactive Protein Total Protein Albumin Vitamin B12 Urine WBC (Auto) Salicylates Acetaminophen Miscellaneous Test Crossmatch 04/14/19 04/14/19 04/14/19 12:16 17:54 23:35 WBC RBC Hgb Hct MCV MCH MCHC RDW Plt Count Lymph % (Auto) [place] % (Auto) Lymph # Seg Neutrophils % Seg Neuts % (Manual) Lymphocytes % (Manual) Nucleated RBC % Seg Neutrophils # Seg Neutrophils # Man Lymphocytes # (Manual) Monocytes # (Manual) PT INR APTT D-Dimer POC ABG pH ABG pH POC ABG pCO2 POC ABG pO2 ABG pO2 ABG HCO3 ABG O2 Saturation ABG Base Excess ABG Hemoglobin VBG pH Oxyhemoglobin Sodium Potassium Chloride Carbon Dioxide BUN Creatinine Glucose POC Glucose 176 H 224 H 173 H Lactic Acid Calcium Phosphorus Magnesium Iron TIBC Direct Bilirubin AST ALT Alkaline Phosphatase Total Creatine Kinase CK-MB (CK-2) C-Reactive Protein Total Protein Albumin Vitamin B12 Urine WBC (Auto) Salicylates Acetaminophen Miscellaneous Test Crossmatch 04/15/19 04/15/19 04/15/19 05:44 12:44 18:06 WBC RBC Hgb Hct MCV MCH MCHC RDW Plt Count Lymph % (Auto) [place] % (Auto) Lymph # Seg Neutrophils % Seg Neuts % (Manual) Lymphocytes % (Manual) Nucleated RBC % Seg Neutrophils # Seg Neutrophils # Man Lymphocytes # (Manual) Monocytes # (Manual) PT INR APTT D-Dimer POC ABG pH 7.461 H ABG pH POC ABG pCO2 45.5 H POC ABG pO2 ABG pO2 ABG HCO3 ABG O2 Saturation ABG Base Excess ABG Hemoglobin VBG pH Oxyhemoglobin Sodium Potassium Chloride Carbon Dioxide BUN Creatinine Glucose POC Glucose 255 H 365 H Lactic Acid Calcium Phosphorus Magnesium Iron TIBC Direct Bilirubin AST ALT Alkaline Phosphatase Total Creatine Kinase CK-MB (CK-2) C-Reactive Protein Total Protein Albumin Vitamin B12 Urine WBC (Auto) Salicylates Acetaminophen Miscellaneous Test Crossmatch 04/15/19 04/15/19 04/16/19 18:06 23:34 00:40 WBC RBC Hgb Hct MCV MCH MCHC RDW Plt Count Lymph % (Auto) [place] % (Auto) Lymph # Seg Neutrophils % Seg Neuts % (Manual) Lymphocytes % (Manual) Nucleated RBC % Seg Neutrophils # Seg Neutrophils # Man Lymphocytes # (Manual) Monocytes # (Manual) PT INR APTT D-Dimer POC ABG pH ABG pH POC ABG pCO2 POC ABG pO2 ABG pO2 ABG HCO3 ABG O2 Saturation ABG Base Excess ABG Hemoglobin VBG pH Oxyhemoglobin Sodium Potassium Chloride Carbon Dioxide BUN Creatinine Glucose POC Glucose 157 H 56 L 107 H Lactic Acid Calcium Phosphorus Magnesium Iron TIBC Direct Bilirubin AST ALT Alkaline Phosphatase Total Creatine Kinase CK-MB (CK-2) C-Reactive Protein Total Protein Albumin Vitamin B12 Urine WBC (Auto) Salicylates Acetaminophen Miscellaneous Test Crossmatch 04/16/19 04/16/19 04/16/19 09:06 09:06 11:21 WBC 12.9 H RBC 2.95 L Hgb 9.7 L Hct 28.9 L MCV 98 H MCH 33 H MCHC RDW 17.7 H Plt Count 581 H Lymph % (Auto) [place] % (Auto) Lymph # Seg Neutrophils % Seg Neuts % (Manual) Lymphocytes % (Manual) Nucleated RBC % Seg Neutrophils # Seg Neutrophils # Man Lymphocytes # (Manual) Monocytes # (Manual) PT INR APTT D-Dimer POC ABG pH ABG pH POC ABG pCO2 POC ABG pO2 ABG pO2 ABG HCO3 ABG O2 Saturation ABG Base Excess ABG Hemoglobin VBG pH Oxyhemoglobin Sodium Potassium Chloride Carbon Dioxide 31 H BUN Creatinine 0.2 L Glucose 155 H POC Glucose 184 H Lactic Acid Calcium Phosphorus Magnesium Iron TIBC Direct Bilirubin AST ALT Alkaline Phosphatase Total Creatine Kinase CK-MB (CK-2) C-Reactive Protein Total Protein Albumin Vitamin B12 Urine WBC (Auto) Salicylates Acetaminophen Miscellaneous Test Crossmatch 04/16/19 04/16/19 04/16/19 17:28 20:17 23:09 WBC RBC Hgb Hct MCV MCH MCHC RDW Plt Count Lymph % (Auto) [place] % (Auto) Lymph # Seg Neutrophils % Seg Neuts % (Manual) Lymphocytes % (Manual) Nucleated RBC % Seg Neutrophils # Seg Neutrophils # Man Lymphocytes # (Manual) Monocytes # (Manual) PT INR APTT D-Dimer POC ABG pH 7.479 H ABG pH POC ABG pCO2 POC ABG pO2 71 L ABG pO2 ABG HCO3 ABG O2 Saturation ABG Base Excess ABG Hemoglobin VBG pH Oxyhemoglobin Sodium Potassium Chloride Carbon Dioxide BUN Creatinine Glucose POC Glucose 173 H 178 H Lactic Acid Calcium Phosphorus Magnesium Iron TIBC Direct Bilirubin AST ALT Alkaline Phosphatase Total Creatine Kinase CK-MB (CK-2) C-Reactive Protein Total Protein Albumin Vitamin B12 Urine WBC (Auto) Salicylates Acetaminophen Miscellaneous Test Crossmatch 04/17/19 04/17/19 04/17/19 05:02 11:39 12:48 WBC RBC Hgb Hct MCV MCH MCHC RDW Plt Count Lymph % (Auto) [place] % (Auto) Lymph # Seg Neutrophils % Seg Neuts % (Manual) Lymphocytes % (Manual) Nucleated RBC % Seg Neutrophils # Seg Neutrophils # Man Lymphocytes # (Manual) Monocytes # (Manual) PT INR APTT D-Dimer POC ABG pH 7.557 H ABG pH POC ABG pCO2 32.8 L POC ABG pO2 149 H ABG pO2 ABG HCO3 ABG O2 Saturation ABG Base Excess ABG Hemoglobin VBG pH Oxyhemoglobin Sodium Potassium Chloride Carbon Dioxide BUN Creatinine Glucose POC Glucose 252 H 124 H Lactic Acid Calcium Phosphorus Magnesium Iron TIBC Direct Bilirubin AST ALT Alkaline Phosphatase Total Creatine Kinase CK-MB (CK-2) C-Reactive Protein Total Protein Albumin Vitamin B12 Urine WBC (Auto) Salicylates Acetaminophen Miscellaneous Test Crossmatch 04/17/19 04/18/19 04/18/19 23:31 05:32 11:34 WBC RBC Hgb Hct MCV MCH MCHC RDW Plt Count Lymph % (Auto) [place] % (Auto) Lymph # Seg Neutrophils % Seg Neuts % (Manual) Lymphocytes % (Manual) Nucleated RBC % Seg Neutrophils # Seg Neutrophils # Man Lymphocytes # (Manual) Monocytes # (Manual) PT INR APTT D-Dimer POC ABG pH ABG pH POC ABG pCO2 POC ABG pO2 ABG pO2 ABG HCO3 ABG O2 Saturation ABG Base Excess ABG Hemoglobin VBG pH Oxyhemoglobin Sodium Potassium Chloride Carbon Dioxide BUN Creatinine Glucose POC Glucose 149 H 334 H 344 H Lactic Acid Calcium Phosphorus Magnesium Iron TIBC Direct Bilirubin AST ALT Alkaline Phosphatase Total Creatine Kinase CK-MB (CK-2) C-Reactive Protein Total Protein Albumin Vitamin B12 Urine WBC (Auto) Salicylates Acetaminophen Miscellaneous Test Crossmatch 04/18/19 04/18/19 04/18/19 17:43 18:14 23:35 WBC RBC Hgb Hct MCV MCH MCHC RDW Plt Count Lymph % (Auto) [place] % (Auto) Lymph # Seg Neutrophils % Seg Neuts % (Manual) Lymphocytes % (Manual) Nucleated RBC % Seg Neutrophils # Seg Neutrophils # Man Lymphocytes # (Manual) Monocytes # (Manual) PT INR APTT D-Dimer POC ABG pH ABG pH POC ABG pCO2 49.2 H POC ABG pO2 ABG pO2 ABG HCO3 ABG O2 Saturation ABG Base Excess ABG Hemoglobin VBG pH Oxyhemoglobin Sodium Potassium Chloride Carbon Dioxide BUN Creatinine Glucose POC Glucose 289 H 312 H Lactic Acid Calcium Phosphorus Magnesium Iron TIBC Direct Bilirubin AST ALT Alkaline Phosphatase Total Creatine Kinase CK-MB (CK-2) C-Reactive Protein Total Protein Albumin Vitamin B12 Urine WBC (Auto) Salicylates Acetaminophen Miscellaneous Test Crossmatch 04/19/19 04/19/19 04/19/19 04:35 05:55 12:26 WBC RBC Hgb Hct MCV MCH MCHC RDW Plt Count Lymph % (Auto) [place] % (Auto) Lymph # Seg Neutrophils % Seg Neuts % (Manual) Lymphocytes % (Manual) Nucleated RBC % Seg Neutrophils # Seg Neutrophils # Man Lymphocytes # (Manual) Monocytes # (Manual) PT INR APTT D-Dimer POC ABG pH 7.565 H ABG pH POC ABG pCO2 POC ABG pO2 ABG pO2 ABG HCO3 ABG O2 Saturation ABG Base Excess ABG Hemoglobin VBG pH Oxyhemoglobin Sodium Potassium Chloride Carbon Dioxide BUN Creatinine Glucose POC Glucose 172 H 271 H Lactic Acid Calcium Phosphorus Magnesium Iron TIBC Direct Bilirubin AST ALT Alkaline Phosphatase Total Creatine Kinase CK-MB (CK-2) C-Reactive Protein Total Protein Albumin Vitamin B12 Urine WBC (Auto) Salicylates Acetaminophen Miscellaneous Test Crossmatch 04/19/19 04/19/19 04/19/19 17:54 21:10 23:35 WBC RBC Hgb Hct MCV MCH MCHC RDW Plt Count Lymph % (Auto) [place] % (Auto) Lymph # Seg Neutrophils % Seg Neuts % (Manual) Lymphocytes % (Manual) Nucleated RBC % Seg Neutrophils # Seg Neutrophils # Man Lymphocytes # (Manual) Monocytes # (Manual) PT INR APTT D-Dimer POC ABG pH ABG pH POC ABG pCO2 POC ABG pO2 ABG pO2 ABG HCO3 ABG O2 Saturation ABG Base Excess ABG Hemoglobin VBG pH Oxyhemoglobin Sodium Potassium Chloride Carbon Dioxide BUN Creatinine Glucose POC Glucose 229 H 189 H 131 H Lactic Acid Calcium Phosphorus Magnesium Iron TIBC Direct Bilirubin AST ALT Alkaline Phosphatase Total Creatine Kinase CK-MB (CK-2) C-Reactive Protein Total Protein Albumin Vitamin B12 Urine WBC (Auto) Salicylates Acetaminophen Miscellaneous Test Crossmatch 04/20/19 04/20/19 04/20/19 05:42 11:58 17:32 WBC RBC Hgb Hct MCV MCH MCHC RDW Plt Count Lymph % (Auto) [place] % (Auto) Lymph # Seg Neutrophils % Seg Neuts % (Manual) Lymphocytes % (Manual) Nucleated RBC % Seg Neutrophils # Seg Neutrophils # Man Lymphocytes # (Manual) Monocytes # (Manual) PT INR APTT D-Dimer POC ABG pH ABG pH POC ABG pCO2 POC ABG pO2 ABG pO2 ABG HCO3 ABG O2 Saturation ABG Base Excess ABG Hemoglobin VBG pH Oxyhemoglobin Sodium Potassium Chloride Carbon Dioxide BUN Creatinine Glucose POC Glucose 289 H 265 H 232 H Lactic Acid Calcium Phosphorus Magnesium Iron TIBC Direct Bilirubin AST ALT Alkaline Phosphatase Total Creatine Kinase CK-MB (CK-2) C-Reactive Protein Total Protein Albumin Vitamin B12 Urine WBC (Auto) Salicylates Acetaminophen Miscellaneous Test Crossmatch 04/21/19 04/21/19 04/21/19 00:02 05:13 12:41 WBC RBC Hgb Hct MCV MCH MCHC RDW Plt Count Lymph % (Auto) [place] % (Auto) Lymph # Seg Neutrophils % Seg Neuts % (Manual) Lymphocytes % (Manual) Nucleated RBC % Seg Neutrophils # Seg Neutrophils # Man Lymphocytes # (Manual) Monocytes # (Manual) PT INR APTT D-Dimer POC ABG pH ABG pH POC ABG pCO2 POC ABG pO2 ABG pO2 ABG HCO3 ABG O2 Saturation ABG Base Excess ABG Hemoglobin VBG pH Oxyhemoglobin Sodium Potassium Chloride Carbon Dioxide BUN Creatinine Glucose POC Glucose 126 H 233 H 205 H Lactic Acid Calcium Phosphorus Magnesium Iron TIBC Direct Bilirubin AST ALT Alkaline Phosphatase Total Creatine Kinase CK-MB (CK-2) C-Reactive Protein Total Protein Albumin Vitamin B12 Urine WBC (Auto) Salicylates Acetaminophen Miscellaneous Test Crossmatch 04/21/19 04/22/19 04/22/19 23:42 03:57 03:57 WBC 11.5 H RBC 3.44 L Hgb Hct MCV MCH MCHC RDW 16.3 H Plt Count 510 H Lymph % (Auto) [place] % (Auto) Lymph # Seg Neutrophils % Seg Neuts % (Manual) Lymphocytes % (Manual) Nucleated RBC % Seg Neutrophils # Seg Neutrophils # Man Lymphocytes # (Manual) Monocytes # (Manual) PT INR APTT D-Dimer POC ABG pH ABG pH POC ABG pCO2 POC ABG pO2 ABG pO2 ABG HCO3 ABG O2 Saturation ABG Base Excess ABG Hemoglobin VBG pH Oxyhemoglobin Sodium Potassium Chloride 96.3 L Carbon Dioxide BUN Creatinine 0.2 L Glucose 333 H POC Glucose 149 H Lactic Acid Calcium Phosphorus Magnesium Iron TIBC Direct Bilirubin AST 60 H ALT Alkaline Phosphatase 204 H Total Creatine Kinase CK-MB (CK-2) C-Reactive Protein Total Protein Albumin 3.1 L Vitamin B12 Urine WBC (Auto) Salicylates Acetaminophen Miscellaneous Test Crossmatch 04/22/19 04/22/19 04/22/19 05:18 12:03 18:17 WBC RBC Hgb Hct MCV MCH MCHC RDW Plt Count Lymph % (Auto) [place] % (Auto) Lymph # Seg Neutrophils % Seg Neuts % (Manual) Lymphocytes % (Manual) Nucleated RBC % Seg Neutrophils # Seg Neutrophils # Man Lymphocytes # (Manual) Monocytes # (Manual) PT INR APTT D-Dimer POC ABG pH ABG pH POC ABG pCO2 POC ABG pO2 ABG pO2 ABG HCO3 ABG O2 Saturation ABG Base Excess ABG Hemoglobin VBG pH Oxyhemoglobin Sodium Potassium Chloride Carbon Dioxide BUN Creatinine Glucose POC Glucose 345 H 308 H 169 H Lactic Acid Calcium Phosphorus Magnesium Iron TIBC Direct Bilirubin AST ALT Alkaline Phosphatase Total Creatine Kinase CK-MB (CK-2) C-Reactive Protein Total Protein Albumin Vitamin B12 Urine WBC (Auto) Salicylates Acetaminophen Miscellaneous Test Crossmatch 04/23/19 04/23/19 04/23/19 00:14 05:43 11:15 WBC RBC Hgb Hct MCV MCH MCHC RDW Plt Count Lymph % (Auto) [place] % (Auto) Lymph # Seg Neutrophils % Seg Neuts % (Manual) Lymphocytes % (Manual) Nucleated RBC % Seg Neutrophils # Seg Neutrophils # Man Lymphocytes # (Manual) Monocytes # (Manual) PT INR APTT D-Dimer POC ABG pH ABG pH POC ABG pCO2 POC ABG pO2 ABG pO2 ABG HCO3 ABG O2 Saturation ABG Base Excess ABG Hemoglobin VBG pH Oxyhemoglobin Sodium Potassium Chloride Carbon Dioxide BUN Creatinine Glucose POC Glucose 192 H 260 H 186 H Lactic Acid Calcium Phosphorus Magnesium Iron TIBC Direct Bilirubin AST ALT Alkaline Phosphatase Total Creatine Kinase CK-MB (CK-2) C-Reactive Protein Total Protein Albumin Vitamin B12 Urine WBC (Auto) Salicylates Acetaminophen Miscellaneous Test Crossmatch 04/23/19 04/23/19 04/24/19 15:44 21:30 00:09 WBC RBC Hgb Hct MCV MCH MCHC RDW Plt Count Lymph % (Auto) [place] % (Auto) Lymph # Seg Neutrophils % Seg Neuts % (Manual) Lymphocytes % (Manual) Nucleated RBC % Seg Neutrophils # Seg Neutrophils # Man Lymphocytes # (Manual) Monocytes # (Manual) PT INR APTT D-Dimer POC ABG pH ABG pH POC ABG pCO2 POC ABG pO2 ABG pO2 ABG HCO3 ABG O2 Saturation ABG Base Excess ABG Hemoglobin VBG pH Oxyhemoglobin Sodium Potassium Chloride Carbon Dioxide BUN Creatinine Glucose POC Glucose 164 H 407 H 280 H Lactic Acid Calcium Phosphorus Magnesium Iron TIBC Direct Bilirubin AST ALT Alkaline Phosphatase Total Creatine Kinase CK-MB (CK-2) C-Reactive Protein Total Protein Albumin Vitamin B12 Urine WBC (Auto) Salicylates Acetaminophen Miscellaneous Test Crossmatch 04/24/19 04/24/19 04/24/19 06:01 06:39 14:51 WBC RBC Hgb Hct MCV MCH MCHC RDW Plt Count Lymph % (Auto) [place] % (Auto) Lymph # Seg Neutrophils % Seg Neuts % (Manual) Lymphocytes % (Manual) Nucleated RBC % Seg Neutrophils # Seg Neutrophils # Man Lymphocytes # (Manual) Monocytes # (Manual) PT INR APTT D-Dimer POC ABG pH ABG pH POC ABG pCO2 POC ABG pO2 ABG pO2 ABG HCO3 ABG O2 Saturation ABG Base Excess ABG Hemoglobin VBG pH Oxyhemoglobin Sodium Potassium Chloride Carbon Dioxide BUN Creatinine Glucose POC Glucose 65 L 125 H 207 H Lactic Acid Calcium Phosphorus Magnesium Iron TIBC Direct Bilirubin AST ALT Alkaline Phosphatase Total Creatine Kinase CK-MB (CK-2) C-Reactive Protein Total Protein Albumin Vitamin B12 Urine WBC (Auto) Salicylates Acetaminophen Miscellaneous Test Crossmatch 04/24/19 04/25/19 04/25/19 18:03 01:46 05:56 WBC RBC Hgb Hct MCV MCH MCHC RDW Plt Count Lymph % (Auto) [place] % (Auto) Lymph # Seg Neutrophils % Seg Neuts % (Manual) Lymphocytes % (Manual) Nucleated RBC % Seg Neutrophils # Seg Neutrophils # Man Lymphocytes # (Manual) Monocytes # (Manual) PT INR APTT D-Dimer POC ABG pH ABG pH POC ABG pCO2 POC ABG pO2 ABG pO2 ABG HCO3 ABG O2 Saturation ABG Base Excess ABG Hemoglobin VBG pH Oxyhemoglobin Sodium Potassium Chloride Carbon Dioxide BUN Creatinine Glucose POC Glucose 140 H 125 H 208 H Lactic Acid Calcium Phosphorus Magnesium Iron TIBC Direct Bilirubin AST ALT Alkaline Phosphatase Total Creatine Kinase CK-MB (CK-2) C-Reactive Protein Total Protein Albumin Vitamin B12 Urine WBC (Auto) Salicylates Acetaminophen Miscellaneous Test Crossmatch 04/25/19 04/25/19 04/25/19 08:12 13:06 18:04 WBC RBC Hgb Hct MCV MCH MCHC RDW Plt Count Lymph % (Auto) [place] % (Auto) Lymph # Seg Neutrophils % Seg Neuts % (Manual) Lymphocytes % (Manual) Nucleated RBC % Seg Neutrophils # Seg Neutrophils # Man Lymphocytes # (Manual) Monocytes # (Manual) PT INR APTT D-Dimer POC ABG pH ABG pH POC ABG pCO2 POC ABG pO2 ABG pO2 ABG HCO3 ABG O2 Saturation ABG Base Excess ABG Hemoglobin VBG pH Oxyhemoglobin Sodium Potassium Chloride Carbon Dioxide BUN Creatinine Glucose POC Glucose 127 H 147 H 340 H Lactic Acid Calcium Phosphorus Magnesium Iron TIBC Direct Bilirubin AST ALT Alkaline Phosphatase Total Creatine Kinase CK-MB (CK-2) C-Reactive Protein Total Protein Albumin Vitamin B12 Urine WBC (Auto) Salicylates Acetaminophen Miscellaneous Test Crossmatch 04/26/19 04/26/19 04/26/19 00:16 05:15 11:26 WBC RBC Hgb Hct MCV MCH MCHC RDW Plt Count Lymph % (Auto) [place] % (Auto) Lymph # Seg Neutrophils % Seg Neuts % (Manual) Lymphocytes % (Manual) Nucleated RBC % Seg Neutrophils # Seg Neutrophils # Man Lymphocytes # (Manual) Monocytes # (Manual) PT INR APTT D-Dimer POC ABG pH ABG pH POC ABG pCO2 POC ABG pO2 ABG pO2 ABG HCO3 ABG O2 Saturation ABG Base Excess ABG Hemoglobin VBG pH Oxyhemoglobin Sodium Potassium Chloride Carbon Dioxide BUN Creatinine Glucose POC Glucose 137 H 136 H 365 H Lactic Acid Calcium Phosphorus Magnesium Iron TIBC Direct Bilirubin AST ALT Alkaline Phosphatase Total Creatine Kinase CK-MB (CK-2) C-Reactive Protein Total Protein Albumin Vitamin B12 Urine WBC (Auto) Salicylates Acetaminophen Miscellaneous Test Crossmatch 04/26/19 04/26/19 04/27/19 18:03 21:30 06:14 WBC RBC Hgb Hct MCV MCH MCHC RDW Plt Count Lymph % (Auto) [place] % (Auto) Lymph # Seg Neutrophils % Seg Neuts % (Manual) Lymphocytes % (Manual) Nucleated RBC % Seg Neutrophils # Seg Neutrophils # Man Lymphocytes # (Manual) Monocytes # (Manual) PT INR APTT D-Dimer POC ABG pH ABG pH POC ABG pCO2 POC ABG pO2 ABG pO2 ABG HCO3 ABG O2 Saturation ABG Base Excess ABG Hemoglobin VBG pH Oxyhemoglobin Sodium Potassium Chloride Carbon Dioxide BUN Creatinine Glucose POC Glucose 124 H 231 H 199 H Lactic Acid Calcium Phosphorus Magnesium Iron TIBC Direct Bilirubin AST ALT Alkaline Phosphatase Total Creatine Kinase CK-MB (CK-2) C-Reactive Protein Total Protein Albumin Vitamin B12 Urine WBC (Auto) Salicylates Acetaminophen Miscellaneous Test Crossmatch 04/27/19 04/27/19 04/28/19 16:39 22:22 05:55 WBC RBC Hgb Hct MCV MCH MCHC RDW Plt Count Lymph % (Auto) [place] % (Auto) Lymph # Seg Neutrophils % Seg Neuts % (Manual) Lymphocytes % (Manual) Nucleated RBC % Seg Neutrophils # Seg Neutrophils # Man Lymphocytes # (Manual) Monocytes # (Manual) PT INR APTT D-Dimer POC ABG pH ABG pH POC ABG pCO2 POC ABG pO2 ABG pO2 ABG HCO3 ABG O2 Saturation ABG Base Excess ABG Hemoglobin VBG pH Oxyhemoglobin Sodium Potassium Chloride Carbon Dioxide BUN Creatinine Glucose POC Glucose 171 H 183 H 207 H Lactic Acid Calcium Phosphorus Magnesium Iron TIBC Direct Bilirubin AST ALT Alkaline Phosphatase Total Creatine Kinase CK-MB (CK-2) C-Reactive Protein Total Protein Albumin Vitamin B12 Urine WBC (Auto) Salicylates Acetaminophen Miscellaneous Test Crossmatch 04/28/19 04/28/19 04/29/19 12:30 17:07 00:03 WBC RBC Hgb Hct MCV MCH MCHC RDW Plt Count Lymph % (Auto) [place] % (Auto) Lymph # Seg Neutrophils % Seg Neuts % (Manual) Lymphocytes % (Manual) Nucleated RBC % Seg Neutrophils # Seg Neutrophils # Man Lymphocytes # (Manual) Monocytes # (Manual) PT INR APTT D-Dimer POC ABG pH ABG pH POC ABG pCO2 POC ABG pO2 ABG pO2 ABG HCO3 ABG O2 Saturation ABG Base Excess ABG Hemoglobin VBG pH Oxyhemoglobin Sodium Potassium Chloride Carbon Dioxide BUN Creatinine Glucose POC Glucose 199 H 233 H 217 H Lactic Acid Calcium Phosphorus Magnesium Iron TIBC Direct Bilirubin AST ALT Alkaline Phosphatase Total Creatine Kinase CK-MB (CK-2) C-Reactive Protein Total Protein Albumin Vitamin B12 Urine WBC (Auto) Salicylates Acetaminophen Miscellaneous Test Crossmatch 04/29/19 04/29/19 04/29/19 05:51 09:43 09:43 WBC RBC 3.36 L Hgb Hct MCV MCH MCHC RDW 16.3 H Plt Count Lymph % (Auto) 11.1 L [place] % (Auto) Lymph # Seg Neutrophils % 81.4 H Seg Neuts % (Manual) Lymphocytes % (Manual) Nucleated RBC % Seg Neutrophils # 9.0 H Seg Neutrophils # Man Lymphocytes # (Manual) Monocytes # (Manual) PT INR APTT D-Dimer POC ABG pH ABG pH POC ABG pCO2 POC ABG pO2 ABG pO2 ABG HCO3 ABG O2 Saturation ABG Base Excess ABG Hemoglobin VBG pH Oxyhemoglobin Sodium Potassium Chloride Carbon Dioxide BUN 21 H Creatinine 0.3 L Glucose 316 H POC Glucose 149 H Lactic Acid Calcium Phosphorus Magnesium Iron TIBC Direct Bilirubin AST ALT Alkaline Phosphatase Total Creatine Kinase CK-MB (CK-2) C-Reactive Protein Total Protein Albumin Vitamin B12 Urine WBC (Auto) Salicylates Acetaminophen Miscellaneous Test Crossmatch 04/29/19 04/29/19 04/29/19 12:28 18:02 23:49 WBC RBC Hgb Hct MCV MCH MCHC RDW Plt Count Lymph % (Auto) Nicholas % (Auto) Lymph # Seg Neutrophils % Seg Neuts % (Manual) Lymphocytes % (Manual) Nucleated RBC % Seg Neutrophils # Seg Neutrophils # Man Lymphocytes # (Manual) Monocytes # (Manual) PT INR APTT D-Dimer POC ABG pH ABG pH POC ABG pCO2 POC ABG pO2 ABG pO2 ABG HCO3 ABG O2 Saturation ABG Base Excess ABG Hemoglobin VBG pH Oxyhemoglobin Sodium Potassium Chloride Carbon Dioxide BUN Creatinine Glucose POC Glucose 368 H 185 H 137 H Lactic Acid Calcium Phosphorus Magnesium Iron TIBC Direct Bilirubin AST ALT Alkaline Phosphatase Total Creatine Kinase CK-MB (CK-2) C-Reactive Protein Total Protein Albumin Vitamin B12 Urine WBC (Auto) Salicylates Acetaminophen Miscellaneous Test Crossmatch 04/30/19 04/30/19 04/30/19 05:56 09:08 09:08 WBC RBC 3.48 L Hgb Hct MCV MCH MCHC RDW 15.9 H Plt Count Lymph % (Auto) Nicholas % (Auto) Lymph # Seg Neutrophils % 73.7 H Seg Neuts % (Manual) Lymphocytes % (Manual) Nucleated RBC % Seg Neutrophils # Seg Neutrophils # Man Lymphocytes # (Manual) Monocytes # (Manual) PT INR APTT D-Dimer POC ABG pH ABG pH POC ABG pCO2 POC ABG pO2 ABG pO2 ABG HCO3 ABG O2 Saturation ABG Base Excess ABG Hemoglobin VBG pH Oxyhemoglobin Sodium Potassium Chloride Carbon Dioxide BUN 25 H Creatinine 0.3 L Glucose 290 H POC Glucose 318 H Lactic Acid Calcium Phosphorus Magnesium Iron TIBC Direct Bilirubin AST ALT Alkaline Phosphatase Total Creatine Kinase CK-MB (CK-2) C-Reactive Protein Total Protein Albumin Vitamin B12 Urine WBC (Auto) Salicylates Acetaminophen Miscellaneous Test Crossmatch 04/30/19 04/30/19 04/30/19 11:32 17:19 21:36 WBC RBC Hgb Hct MCV MCH MCHC RDW Plt Count Lymph % (Auto) Nicholas % (Auto) Lymph # Seg Neutrophils % Seg Neuts % (Manual) Lymphocytes % (Manual) Nucleated RBC % Seg Neutrophils # Seg Neutrophils # Man Lymphocytes # (Manual) Monocytes # (Manual) PT INR APTT D-Dimer POC ABG pH ABG pH POC ABG pCO2 POC ABG pO2 ABG pO2 ABG HCO3 ABG O2 Saturation ABG Base Excess ABG Hemoglobin VBG pH Oxyhemoglobin Sodium Potassium Chloride Carbon Dioxide BUN Creatinine Glucose POC Glucose 225 H 110 H 371 H Lactic Acid Calcium Phosphorus Magnesium Iron TIBC Direct Bilirubin AST ALT Alkaline Phosphatase Total Creatine Kinase CK-MB (CK-2) C-Reactive Protein Total Protein Albumin Vitamin B12 Urine WBC (Auto) Salicylates Acetaminophen Miscellaneous Test Crossmatch 04/30/19 05/01/19 05/01/19 Unknown 05:29 11:44 WBC RBC Hgb Hct MCV MCH MCHC RDW Plt Count Lymph % (Auto) Nicholas % (Auto) Lymph # Seg Neutrophils % Seg Neuts % (Manual) Lymphocytes % (Manual) Nucleated RBC % Seg Neutrophils # Seg Neutrophils # Man Lymphocytes # (Manual) Monocytes # (Manual) PT INR APTT D-Dimer POC ABG pH ABG pH POC ABG pCO2 POC ABG pO2 ABG pO2 ABG HCO3 ABG O2 Saturation ABG Base Excess ABG Hemoglobin VBG pH Oxyhemoglobin Sodium Potassium Chloride Carbon Dioxide BUN Creatinine Glucose POC Glucose 386 H 227 H Lactic Acid Calcium Phosphorus Magnesium Iron TIBC Direct Bilirubin AST ALT Alkaline Phosphatase Total Creatine Kinase CK-MB (CK-2) C-Reactive Protein Total Protein Albumin Vitamin B12 Urine WBC (Auto) 17.0 H Salicylates Acetaminophen Miscellaneous Test Crossmatch 05/02/19 05/02/19 05/03/19 05:51 11:21 00:25 WBC RBC Hgb Hct MCV MCH MCHC RDW Plt Count Lymph % (Auto) Nicholas % (Auto) Lymph # Seg Neutrophils % Seg Neuts % (Manual) Lymphocytes % (Manual) Nucleated RBC % Seg Neutrophils # Seg Neutrophils # Man Lymphocytes # (Manual) Monocytes # (Manual) PT INR APTT D-Dimer POC ABG pH ABG pH POC ABG pCO2 POC ABG pO2 ABG pO2 ABG HCO3 ABG O2 Saturation ABG Base Excess ABG Hemoglobin VBG pH Oxyhemoglobin Sodium Potassium Chloride Carbon Dioxide BUN Creatinine Glucose POC Glucose 280 H 191 H 262 H Lactic Acid Calcium Phosphorus Magnesium Iron TIBC Direct Bilirubin AST ALT Alkaline Phosphatase Total Creatine Kinase CK-MB (CK-2) C-Reactive Protein Total Protein Albumin Vitamin B12 Urine WBC (Auto) Salicylates Acetaminophen Miscellaneous Test Crossmatch 05/03/19 05/03/19 05/03/19 04:57 04:57 06:20 WBC RBC 3.45 L Hgb Hct MCV MCH MCHC RDW 15.5 H Plt Count Lymph % (Auto) Nicholas % (Auto) 7.6 H Lymph # Seg Neutrophils % Seg Neuts % (Manual) Lymphocytes % (Manual) Nucleated RBC % Seg Neutrophils # Seg Neutrophils # Man Lymphocytes # (Manual) Monocytes # (Manual) PT INR APTT D-Dimer POC ABG pH ABG pH POC ABG pCO2 POC ABG pO2 ABG pO2 ABG HCO3 ABG O2 Saturation ABG Base Excess ABG Hemoglobin VBG pH Oxyhemoglobin Sodium Potassium Chloride Carbon Dioxide BUN 23 H Creatinine 0.2 L Glucose 101 H POC Glucose 131 H Lactic Acid Calcium Phosphorus Magnesium Iron TIBC Direct Bilirubin AST ALT Alkaline Phosphatase Total Creatine Kinase CK-MB (CK-2) C-Reactive Protein Total Protein Albumin Vitamin B12 Urine WBC (Auto) Salicylates Acetaminophen Miscellaneous Test Crossmatch 05/03/19 23:58 WBC RBC Hgb Hct MCV MCH MCHC RDW Plt Count Lymph % (Auto) Nicholas % (Auto) Lymph # Seg Neutrophils % Seg Neuts % (Manual) Lymphocytes % (Manual) Nucleated RBC % Seg Neutrophils # Seg Neutrophils # Man Lymphocytes # (Manual) Monocytes # (Manual) PT INR APTT D-Dimer POC ABG pH ABG pH POC ABG pCO2 POC ABG pO2 ABG pO2 ABG HCO3 ABG O2 Saturation ABG Base Excess ABG Hemoglobin VBG pH Oxyhemoglobin Sodium Potassium Chloride Carbon Dioxide BUN Creatinine Glucose POC Glucose 160 H Lactic Acid Calcium Phosphorus Magnesium Iron TIBC Direct Bilirubin AST ALT Alkaline Phosphatase Total Creatine Kinase CK-MB (CK-2) C-Reactive Protein Total Protein Albumin Vitamin B12 Urine WBC (Auto) Salicylates Acetaminophen Miscellaneous Test Crossmatch Allied health notes reviewed: nursing
[2019-05-04] MEDS: ROCEPHIN/NS 1 GM/50 ML 1 GM/50 ML BAG IV SCH (12:58)
[2019-05-04] MEDS: PEPCID PO SCH ×2 (12:59→21:13)
[2019-05-04] MEDS: METOPROLOL PO SCH ×2 (12:59→22:26)
[2019-05-04] MEDS: ENOXAPARIN SUB-Q SCH (13:00)
[2019-05-04] MEDS: KEPPRA PO SCH ×2 (13:01→21:11)
[2019-05-04] MEDS: LANTUS SUB-Q SCH (22:30)
[2019-05-05] MEDS: HumaLOG SUB-Q SCH ×7 (00:41→17:25)
[2019-05-05] MEDS: PEPCID PO SCH ×2 (09:08→22:17)
[2019-05-05] MEDS: KEPPRA PO SCH ×2 (09:09→22:18)
[2019-05-05] MEDS: ENOXAPARIN SUB-Q SCH (09:09)
[2019-05-05] MEDS: ROBINUL FEEDTUBE SCH ×3 (09:09→22:18)
[2019-05-05] MEDS: ROCEPHIN/NS 1 GM/50 ML 1 GM/50 ML BAG IV SCH (09:10)
[2019-05-05] MEDS: METOPROLOL PO SCH ×2 (09:29→22:17)
--- NOTE | 2019-05-05 09:55 | Progress Note ---
Assessment and Plan Assessment and plan: Patient is a 29 year old woman with a history of diabetes was brought to the emergency room following a cardiac arrest. Her last well-known time was 10:30 in the morning of presentation, she was traveling with a friend, she was unresponsive in the back seat. EMS was called, CPR was started and continued here in the emergency room. Patient was intubated in the ER, noted hypotensive started on dobutamine, epinephrine and Levophed drip, given IV fluids, found to be in DKA with BG ~2200, several metabolic derangements - placed on insulin drip and admitted to ICU. BP improved and she was weaned off pressors. Pt off pressors and extubated. Transferred to floor awaiting placement Uncontrolled DM type 1 with hyperglycemia - cont. basal insulin Lantus - cont. SSI - Blood sugar is uncontrolled and increase Lantus and add 10 units of Humalog before meals Acute respiratory failure s/p intubated, off vent - s/p trach and peg on 5 L of oxygen - Tracheostomy re-adjusted on 04/17/19 - on vent, cont nebs, - s/p Trach - Pulm following - Aspiration precautions - VAP bundle Acute anoxic encephalopathy, POA - from cardiac arrest - MR concerning for anoxic Brain injury Cardiac arrest s/p resuscitation - likely 2/2 severe hyperglycemia - preserved EF on 2D echo Generalized Anasacara -Given a dose of Bumex s/p DKA, severe Shock hypotensive +/- sepsis - resolved Now off pressors. Was on vasopressin, Levophed, Phenylephrine Sepsis with possible aspiration PNA - evident on CXR on admission with left sided infiltrates - Competed abx - Abx discontinued following notation that no evidence of liver lesion not consistent with infection per ID - Leucocytosis and thrombocytosis are likely reactive from hepatic subcapsular hematoma UTI, Patient had low-grade temp 04/30/19 - No fever today -UA suggestive of UTI -Urine culture showed enterococcus faecalis, and hanks sensitive. -Patient started on Rocephin on 05/01/19 Head lice - multiple dosing of Permethin given, resolved Acute renal failure, likely vasomotor nephropathy - resolved Anemia, acute on chronic - no sign of blood loss - s/p 2 Units PRBC transfused Hyperkalemia, resolved with fluid and insulin Hypernatremia Resolved hypokalemia, resolved Shock liver with elevated LFT and Coagulopathy - due to cardiac arrest and hypotension - cont to monitor Liver lesion ID Physician following Discontinued abx, not consistent with infection as noted above Hypermagnesemia - monitor levels as needed Hyperphosphatemia -cont to monitor, improved Stage 1 sacral ulcer, poa - upper ext blisters - pressure ulcer prevention strategies - wound care VTE Prophylaxis with Lovenox Poor prognosis DNR status Disposition: continue inpatient care, await placement in [place], [place] assistant case manager in contact with the family Hospice transfer History Interval history: Patient was seen and evaluated during morning rounds as a bedside Patient open her eyes Hospitalist Physical - Physical exam Narrative exam: Patient is on 5 L of oxygen through the trach. The patient appeared well nourished and normally developed. Vital signs as documented. Head exam is unremarkable. No scleral icterus . Neck is without jugular venous distension, thyromegaly, or carotid bruits. Lungs are clear to auscultation. Cardiac exam reveals regular rate and Rhythm. Abdominal exam reveals normal bowel sounds. Extremities are nonedematous and both femoral and pedal pulses are normal. BUSINESS MANAGEMENT INTERN: Patient open her eyes but doesn't follow commands. - Constitutional Vitals: Temp Pulse Resp BP Pulse Ox 98.5 F 115 H 18 107/76 95 05/05/19 05:33 05/05/19 09:29 05/05/19 05:33 05/05/19 05:33 05/05/19 08:50 General appearance: Present: other (intubated) Results - Labs CBC & Chem 7: 05/03/19 04:57 05/03/19 04:57 Labs: Laboratory Last Values WBC 6.1 K/mm3 (4.5-11.0) 05/03/19 04:57 RBC 3.45 M/mm3 (3.65-5.03) L 05/03/19 04:57 Hgb 11.1 gm/dl (10.1-14.3) 05/03/19 04:57 Hct 33.0 % (30.3-42.9) 05/03/19 04:57 MCV 96 fl (79-97) 05/03/19 04:57 MCH 32 pg (28-32) 05/03/19 04:57 MCHC 34 % (30-34) 05/03/19 04:57 RDW 15.5 % (13.2-15.2) H 05/03/19 04:57 Plt Count 373 K/mm3 (140-440) 05/03/19 04:57 Lymph % (Auto) 27.8 % (13.4-35.0) 05/03/19 04:57 [place] % (Auto) 7.6 % (0.0-7.3) H 05/03/19 04:57 Eos % (Auto) 2.6 % (0.0-4.3) 05/03/19 04:57 Baso % (Auto) 0.6 % (0.0-1.8) 05/03/19 04:57 Lymph # 1.7 K/mm3 (1.2-5.4) 05/03/19 04:57 [place] # 0.5 K/mm3 (0.0-0.8) 05/03/19 04:57 Eos # 0.2 K/mm3 (0.0-0.4) 05/03/19 04:57 Baso # 0.0 K/mm3 (0.0-0.1) 05/03/19 04:57 Add Manual Diff Complete 04/01/19 05:01 Total Counted 100 04/01/19 05:01 Seg Neutrophils % 61.4 % (40.0-70.0) 05/03/19 04:57 Seg Neuts % (Manual) 71.0 % (40.0-70.0) H 04/01/19 05:01 Band Neutrophils % 0 % 04/01/19 05:01 Lymphocytes % (Manual) 20.0 % (13.4-35.0) 04/01/19 05:01 Reactive Lymphs % (Man) 0 % 04/01/19 05:01 Monocytes % (Manual) 7.0 % (0.0-7.3) 04/01/19 05:01 Eosinophils % (Manual) 2.0 % (0.0-4.3) 04/01/19 05:01 Basophils % (Manual) 0 % (0.0-1.8) 04/01/19 05:01 Metamyelocytes % 0 % 04/01/19 05:01 Myelocytes % 0 % 04/01/19 05:01 Promyelocytes % 0 % 04/01/19 05:01 Blast Cells % 0 % 04/01/19 05:01 Nucleated RBC % Not Reportable 04/01/19 05:01 Seg Neutrophils # 3.7 K/mm3 (1.8-7.7) 05/03/19 04:57 Seg Neutrophils # Man 4.8 K/mm3 (1.8-7.7) 04/01/19 05:01 Band Neutrophils # 0.0 K/mm3 04/01/19 05:01 Lymphocytes # (Manual) 1.4 K/mm3 (1.2-5.4) 04/01/19 05:01 Abs React Lymphs (Man) 0.0 K/mm3 04/01/19 05:01 Monocytes # (Manual) 0.5 K/mm3 (0.0-0.8) 04/01/19 05:01 Eosinophils # (Manual) 0.1 K/mm3 (0.0-0.4) 04/01/19 05:01 Basophils # (Manual) 0.0 K/mm3 (0.0-0.1) 04/01/19 05:01 Metamyelocytes # 0.0 K/mm3 04/01/19 05:01 Myelocytes # 0.0 K/mm3 04/01/19 05:01 Promyelocytes # 0.0 K/mm3 04/01/19 05:01 Blast Cells # 0.0 K/mm3 04/01/19 05:01 WBC Morphology Not Reportable 04/01/19 05:01 Hypersegmented Neuts Not Reportable 04/01/19 05:01 Hyposegmented Neuts Not Reportable 04/01/19 05:01 Hypogranular Neuts Not Reportable 04/01/19 05:01 Smudge Cells Not Reportable 04/01/19 05:01 Toxic Granulation Not Reportable 04/01/19 05:01 Toxic Vacuolation Not Reportable 04/01/19 05:01 Dohle Bodies Not Reportable 04/01/19 05:01 Pelger-Huet Anomaly Not Reportable 04/01/19 05:01 Wong Rods Not Reportable 04/01/19 05:01 Platelet Estimate Not Reportable 04/01/19 05:01 Clumped Platelets Not Reportable 04/01/19 05:01 Plt Clumps, EDTA Not Reportable 04/01/19 05:01 Large Platelets Not Reportable 04/01/19 05:01 Giant Platelets Not Reportable 04/01/19 05:01 Platelet Satelliting Not Reportable 04/01/19 05:01 Plt Morphology Comment Not Reportable 04/01/19 05:01 RBC Morphology Normal 04/01/19 05:01 Dimorphic RBCs Not Reportable 04/01/19 05:01 Polychromasia Not Reportable 04/01/19 05:01 Hypochromasia Not Reportable 04/01/19 05:01 Poikilocytosis Not Reportable 04/01/19 05:01 Anisocytosis Not Reportable 04/01/19 05:01 Microcytosis Not Reportable 04/01/19 05:01 Macrocytosis Not Reportable 04/01/19 05:01 Spherocytes Not Reportable 04/01/19 05:01 Pappenheimer Bodies Not Reportable 04/01/19 05:01 Sickle Cells Not Reportable 04/01/19 05:01 Target Cells Not Reportable 04/01/19 05:01 Tear Drop Cells Not Reportable 04/01/19 05:01 Ovalocytes Not Reportable 04/01/19 05:01 Helmet Cells Not Reportable 04/01/19 05:01 [place] Bodies Not Reportable 04/01/19 05:01 [place] Rings Not Reportable 04/01/19 05:01 Cardale Cells Not Reportable 04/01/19 05:01 Bite Cells Not Reportable 04/01/19 05:01 Crenated Cell Not Reportable 04/01/19 05:01 Elliptocytes Not Reportable 04/01/19 05:01 Acanthocytes (Spur) Not Reportable 04/01/19 05:01 Rouleaux Not Reportable 04/01/19 05:01 Hemoglobin C Crystals Not Reportable 04/01/19 05:01 Schistocytes Not Reportable 04/01/19 05:01 Malaria parasites Not Reportable 04/01/19 05:01 [place] Bodies Not Reportable 04/01/19 05:01 Hem Pathologist Commnt No 04/01/19 05:01 PT 13.9 Sec. (12.2-14.9) 04/01/19 17:14 INR 1.10 (0.87-1.13) 04/01/19 17:14 APTT 74.5 Sec. (24.2-36.6) H* 03/29/19 19:20 Fibrinogen 313 mg/dl (211-480) 04/01/19 17:14 D-Dimer 4526.86 ng/mlDDU (0-234) H 04/06/19 00:06 Heparin Anti-Xa, Unfract Negative (Negative) 03/31/19 15:00 POC ABG pH 7.565 (7.35-7.45) H 04/19/19 04:35 ABG pH 7.396 pH Units (7.350-7.450) 04/03/19 05:35 POC ABG pCO2 36.2 (35-45) 04/19/19 04:35 ABG pCO2 32.2 mm Hg 04/03/19 05:35 POC ABG pO2 88 (80-105) 04/19/19 04:35 ABG pO2 97.7 mm Hg (80.0-90.0) H 04/03/19 05:35 POC ABG HCO3 32.8 (22-26 mml/L) 04/19/19 04:35 ABG HCO3 19.3 mmol/L (20.0-26.0) L 04/03/19 05:35 POC ABG Total CO2 34 (23-27mmol/L) 04/19/19 04:35 POC ABG O2 Sat 98 04/19/19 04:35 ABG O2 Saturation 97.6 % (95.0-99.0) 04/03/19 05:35 ABG O2 Content 10.9 (0.0-44) 04/03/19 05:35 POC ABG Base Excess 11 ((-2) - (+3)mmol/L) 04/19/19 04:35 ABG Base Excess -5.0 mmol/L (-2.0-3.0) L 04/03/19 05:35 ABG Hemoglobin 8.0 gm/dl (12.0-16.0) L 04/03/19 05:35 ABG Carboxyhemoglobin 2.1 % (0.0-5.0) 04/03/19 05:35 ABG Methemoglobin 0.5 % (0.0-1.5) 04/03/19 05:35 VBG pH 6.800 (7.320-7.420) L* 03/29/19 19:47 Oxyhemoglobin 95.1 % (95.0-99.0) 04/03/19 05:35 FiO2 40 % 04/19/19 04:35 Sodium 144 mmol/L (137-145) 05/03/19 04:57 Potassium 4.1 mmol/L (3.6-5.0) 05/03/19 04:57 Chloride 103.8 mmol/L (98-107) 05/03/19 04:57 Carbon Dioxide 29 mmol/L (22-30) 05/03/19 04:57 Anion Gap 15 mmol/L 05/03/19 04:57 BUN 23 mg/dL (7-17) H 05/03/19 04:57 Creatinine 0.2 mg/dL (0.7-1.2) L 05/03/19 04:57 Estimated GFR > 60 ml/min 05/03/19 04:57 BUN/Creatinine Ratio 115 % 05/03/19 04:57 Glucose 101 mg/dL (65-100) H 05/03/19 04:57 POC Glucose 89 (70-105) 05/05/19 05:42 Lactic Acid 3.30 mmol/L (0.7-2.0) H* 03/31/19 07:50 Calcium 9.5 mg/dL (8.4-10.2) 05/03/19 04:57 Phosphorus 4.10 mg/dL (2.5-4.5) 04/09/19 16:25 Magnesium 1.70 mg/dL (1.7-2.3) 04/22/19 03:57 Iron 26 ug/dL (37-170) L 03/31/19 08:20 TIBC 193 mcg/dL (250-450) L 03/31/19 08:20 Total Bilirubin 0.20 mg/dL (0.1-1.2) 04/22/19 03:57 Direct Bilirubin 0.2 mg/dL (0-0.2) 04/02/19 07:48 Indirect Bilirubin 0.5 mg/dL 04/02/19 07:48 AST 60 units/L (5-40) H 04/22/19 03:57 ALT 31 units/L (7-56) 04/22/19 03:57 Alkaline Phosphatase 204 units/L (35-129) H 04/22/19 03:57 Total Creatine Kinase 2465 units/L (30-135) H 03/30/19 05:26 CK-MB (CK-2) 52.7 ng/mL (0.0-4.0) H 03/30/19 05:26 CK-MB (CK-2) Rel Index 2.1 (0-4) 03/30/19 05:26 Troponin T < 0.010 ng/mL (0.00-0.029) 04/06/19 05:20 C-Reactive Protein 2.40 mg/dL (0.00-1.30) H 03/30/19 12:57 Total Protein 7.6 g/dL (6.3-8.2) 04/22/19 03:57 Albumin 3.1 g/dL (3.9-5) L 04/22/19 03:57 Albumin/Globulin Ratio 0.7 % 04/22/19 03:57 Serotonin Release Assay See scanned result 03/31/19 15:00 Vitamin B12 > 2000 pg/mL (211-911) H 03/31/19 08:20 Folate > 20 ng/mL (7.3-26.0) 03/31/19 08:20 HCG, Qual Negative (Negative) 03/29/19 19:20 Urine Color Yellow (Yellow) 05/02/19 07:08 Urine Turbidity Slightly-cloudy (Clear) 05/02/19 07:08 Urine pH 6.0 (5.0-7.0) 05/02/19 07:08 Ur Specific [place] 1.020 (1.003-1.030) 05/02/19 07:08 Urine Protein <15 mg/dl mg/dL (Negative) 05/02/19 07:08 Urine Glucose (UA) >=500 mg/dL (Negative) 05/02/19 07:08 Urine Ketones Neg mg/dL (Negative) 05/02/19 07:08 Urine Blood Neg (Negative) 05/02/19 07:08 Urine Nitrite Neg (Negative) 05/02/19 07:08 Urine Bilirubin Neg (Negative) 05/02/19 07:08 Urine Urobilinogen < 2.0 mg/dL (<2.0) 05/02/19 07:08 Ur Leukocyte Esterase Neg (Negative) 05/02/19 07:08 Urine WBC (Auto) 6.0 /HPF (0.0-6.0) 05/02/19 07:08 Urine RBC (Auto) 1.0 /HPF (0.0-6.0) 05/02/19 07:08 U Epithel Cells (Auto) 4.0 /HPF (0-13.0) 04/30/19 Unknown Urine Bacteria (Auto) 1+ /HPF (Negative) 05/02/19 07:08 Amorphous Crystals Few 05/02/19 07:08 Urine Mucus Few /HPF 05/02/19 07:08 Salicylates 0.8 mg/dL (2.8-20.0) L 03/30/19 Unknown Urine Opiates Screen Presumptive negative 03/29/19 23:10 Urine Methadone Screen Presumptive negative 03/29/19 23:10 Acetaminophen < 5.0 ug/mL (10.0-30.0) L 03/30/19 Unknown Ur Barbiturates Screen Presumptive negative 03/29/19 23:10 Ur Phencyclidine Scrn Presumptive negative 03/29/19 23:10 Ur Amphetamines Screen Presumptive negative 03/29/19 23:10 U Benzodiazepines Scrn Presumptive negative 03/29/19 23:10 Urine Cocaine Screen Presumptive negative 03/29/19 23:10 U Marijuana (THC) Screen Presumptive negative 03/29/19 23:10 Drugs of Abuse Note Disclamer 03/29/19 23:10 Heparin-induced Plt Ab Negative (Negative) 03/31/19 15:00 UF Heparin High Dose 0 % Release 03/31/19 15:00 FABIAN UFH Low Dose 0.1 0 % Release 03/31/19 15:00 FABIAN UFH Low Dose 0.5 0 % Release 03/31/19 15:00 Hepatitis A IgM Ab Non-reactive (NonReactive) 03/30/19 Unknown Hep Bs Antigen Non-reactive (Negative) 03/30/19 Unknown Hep B Core IgM Ab Non-reactive (NonReactive) 03/30/19 Unknown Hepatitis C Antibody Non-reactive (NonReactive) 03/30/19 Unknown Miscellaneous Test Flexitest 1 H 03/30/19 14:00 Blood Type O POSITIVE 03/30/19 03:30 Antibody Screen Negative 03/30/19 03:30 Crossmatch See Detail 03/30/19 03:30 Active Medications - Current Medications Current Medications: Generic Name Dose Route Start Last Admin Trade Name Freq PRN Reason Stop Dose Admin Acetaminophen 650 mg 03/29/19 23:34 05/03/19 18:09 Tylenol PO 650 mg Q4H PRN Administration Pain MILD(1-3)/Fever >100.5/WARE Lipase/Protease/Amylase 1 each 04/02/19 11:44 Pancreaze 10,500 Unit FEEDTUBE PRN PRN For Clogged Feeding Tube Dextrose 50 ml 04/21/19 12:03 D50w (25gm) Syringe IV PRN PRN Hypoglycemia Enoxaparin Sodium 40 mg 04/14/19 10:00 05/05/19 09:09 Lovenox SUB-Q 40 mg QDAY@1000 ZAMZAM Administration Famotidine 20 mg 04/02/19 10:00 05/05/19 09:08 Pepcid PO 20 mg BID ZAMZAM Administration Fentanyl 25 mcg 04/14/19 14:00 05/02/19 16:20 Duragesic TD 25 mcg Q3D ZAMZAM Administration Glycopyrrolate 1 mg 04/22/19 20:00 05/05/19 09:09 Robinul FEEDTUBE 1 mg TID ZAMZAM Administration Hydrophilic Ointment 1 applic 03/30/19 11:24 04/22/19 08:37 Vaseline Lip Therapy TP 1 applic Q2HR PRN Administration Dry Lips Ceftriaxone Sodium 1 gm in 50 mls @ 100 mls/hr 05/01/19 14:00 05/05/19 09:10 Rocephin/Ns 1 Gm/50 Ml IV 05/05/19 10:29 100 mls/hr Q24HR ZAMZAM Administration Protocol Insulin Glargine 25 units 05/01/19 22:00 05/04/19 22:30 Lantus SUB-Q 25 units QHS ZAMZAM Administration Insulin Human Lispro 0 unit 04/21/19 13:00 05/05/19 05:46 Humalog SUB-Q Not Given Q6HR [facility] Protocol Insulin Human Lispro 10 unit 05/01/19 11:30 05/05/19 08:25 Humalog SUB-Q Not Given [facility] Levetiracetam 500 mg 04/03/19 10:00 05/05/19 09:09 Keppra PO 500 mg BID ZAMZAM Administration Metoprolol Tartrate 5 mg 04/14/19 13:06 04/22/19 08:29 Lopressor IV 5 mg Q6HR PRN Administration Tachyarrhythmias Metoprolol Tartrate 25 mg 04/16/19 10:00 05/05/19 09:29 Lopressor PO 25 mg BID ZAMZAM Administration Multi-Ingred Cream/Lotion/Oil/Oint 1 applic 03/30/19 11:24 04/06/19 11:39 Artificial Tears Ophth Oint OU 1 applic Q4HR PRN Administration Dry Eye(s) Ondansetron HCl 4 mg 03/29/19 23:34 Zofran IV Q8H PRN Nausea And Vomiting Scopolamine 1 each 04/17/19 12:00 05/02/19 16:25 Transderm-Scop TD 1 each Q3D ZAMZAM Administration Simple Syrup 15 ml 04/02/19 11:44 04/24/19 06:02 Simple Syrup FEEDTUBE 15 ml PRN PRN Administration Hypoglycemia Simple Syrup 30 ml 04/02/19 11:44 Simple Syrup FEEDTUBE PRN PRN Hypoglycemia Sodium Bicarbonate 325 mg 04/02/19 11:44 Sodium Bicarbonate FEEDTUBE PRN PRN For Clogged Feeding Tube Sodium Chloride 10 ml 03/29/19 23:34 04/22/19 08:29 Sodium Chloride Flush Syringe 10 Ml IV 10 ml PRN PRN Administration LINE FLUSH Nutrition/Malnutrition Assess - Dietary Evaluation Nutrition/Malnutrition Findings: Nutrition Notes Start: 03/30/19 13:14 Freq: Status: Active Protocol: Document 05/02/19 09:58 LM (Rec: 05/02/19 10:46 LM [id number]) Nutrition Notes Initial or Follow up Reassessment Current Diagnosis Acute Kidney Injury,Diabetes, Sepsis,Respiratory Failure Other Pertinent Diagnosis s/p trach & PEG, s/p cardiac arrest, DKA, ARF, Shock liver Current Diet Glucerna 1.2 at 50 ml/hr Labs/Tests POC glu 280 Pertinent Medications Reviewed Height 5 ft Weight 38.5 kg [place] Body Weight (kg) 45.45 BMI 16.5 Weight change and time frame Wt change noted Subjective/Other Information Glucerna 1.2 running at 50 ml/ hr via PEG. Percent of energy/protein needs met: 100%/100% Burn Absent Trauma Absent #1 Nutrition Diagnosis Inadequate oral intake Diagnosis Progress(for reassessment Continues documentation) Is patient on ventilator? No Is Patient Ambulatory and/or Out of Bed No REE-([place]-confined to bed) 1228.320 Kcal/Kg value to use for calculation 38 Approximate Energy Requirements Using 1463 kcal/Kg Calculation Used for Recommendations Kcal/kg Additional Notes Protein: 1.2-1.5g/k-60g/ day Fluids: 1ml/kcal Nutrition Intervention Change Diet Order: Continue TF Nutrition Support: Glucerna 1.2 at 50ml/hr with 80ml water flush q4h. Kcal 1,440 Protein (gm) 72 Fluid (mL) 966 Goal #1 Meet at least 75% of energy and protein needs Follow-Up By: 05/07/19 Additional Comments F/U for stable TF rate and wt change
[2019-05-05] MEDS: TRANSDERM-SCOP TD SCH (12:59)
[2019-05-05] MEDS: DURAGESIC TD SCH (13:00)
[2019-05-05] MEDS: LANTUS SUB-Q SCH (22:18)
[2019-05-05] MEDS: SODIUM CHLORIDE FLUSH SYRINGE 10 ML IV PRN (22:19)
[2019-05-06] MEDS: HumaLOG SUB-Q SCH ×7 (01:28→17:21)
[2019-05-06] MEDS: KEPPRA PO SCH ×2 (10:14→23:34)
[2019-05-06] MEDS: ENOXAPARIN SUB-Q SCH (10:14)
[2019-05-06] MEDS: PEPCID PO SCH ×2 (10:15→23:34)
[2019-05-06] MEDS: ROBINUL FEEDTUBE SCH ×3 (10:21→23:34)
[2019-05-06] MEDS: METOPROLOL PO SCH ×2 (10:30→23:34)
--- NOTE | 2019-05-06 14:48 | Progress Note ---
Assessment and Plan Uncontrolled DM type 1 with hyperglycemia - cont. basal insulin Lantus - cont. SSI - adjust insulin dose as needed Acute respiratory failure s/p intubated, off vent - s/p trach and peg, on 5 L of oxygen - Tracheostomy re-adjusted on 04/17/19 - Pulm following, on nebs - Aspiration precautions Acute anoxic encephalopathy, POA - from cardiac arrest - MR concerning for anoxic Brain injury Cardiac arrest s/p resuscitation - likely 2/2 severe hyperglycemia - preserved EF on 2D echo Generalized Anasacara, stable now -Given a dose of Bumex s/p severe DKA, resolved - BG was 2200 on admission Shock hypotensive +/- sepsis - resolved Now off pressors. Was on vasopressin, Levophed, Phenylephrine Sepsis with possible aspiration PNA - evident on CXR on admission with left sided infiltrates - Competed abx - Leucocytosis and thrombocytosis are likely reactive from hepatic subcapsular hematoma -liver lesion not consistent with infection per ID UTI, Patient had low-grade temp 04/30/19 -UA suggestive of UTI -Urine culture showed enterococcus faecalis, and hanks sensitive. -Patient started on Rocephin on 05/01/19 Head lice - multiple dosing of Permethin given, resolved Acute renal failure, likely vasomotor nephropathy - resolved Anemia, acute on chronic - no sign of blood loss - s/p 2 Units PRBC transfused Hyperkalemia, resolved with fluid and insulin Hypernatremia Resolved hypokalemia, resolved Shock liver with elevated LFT and Coagulopathy - due to cardiac arrest and hypotension - cont to monitor Liver lesion - ID Physician following - Discontinued abx, not consistent with infection as noted above Hypermagnesemia - monitor levels as needed Hyperphosphatemia -cont to monitor, improved Stage 1 sacral ulcer, poa - upper ext blisters - pressure ulcer prevention strategies - wound care VTE Prophylaxis with Lovenox Poor prognosis DNR status Disposition: continue inpatient care, await placement in [place], [place] manager urology in contact with the family for 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 Her last well-known time was 10:30 in the morning of presentation, she was traveling with a friend, she was unresponsive in the back seat. EMS was called, CPR was started and continued here in the emergency room. Patient was intubated in the ER, noted hypotensive started on dobutamine, epinephrine and Levophed drip, given IV fluids, found to be in DKA with BG ~2200, several metabolic derangements - placed on insulin drip and admitted to ICU. BP improved and she was weaned off pressors. Pt off pressors and extubated. Transferred to floor awaiting placement Subjective Date of service: 05/06/19 Principal diagnosis: Ac Hypoxemic Resp Failure; DKA; Severe sepsis with shock; ANGELICA Interval history: Patient seen and examined Patient remained on trach with t-piece no family members around, nonverbal and doesnot follow commend discussed with RN at bedside with plan of care Objective - Exam Narrative Exam: General appearance: Present: nonverbal, on trach - EENT Eyes: no congestion ENT: clear oral mucosa Ears: bilateral: normal - Neck Neck: no masses or JVD, no carotid bruits - Respiratory Respiratory effort: on trach w/o vent Respiratory: bilateral: CTA - Cardiovascular Rhythm: other (tachycardic) Heart Sounds: Present: S1 & S2. Absent: gallop, rub Extremities: pulses intact, No edema, normal color - Gastrointestinal General gastrointestinal: Present: soft, non-distended, normal bowel sounds - Integumentary Integumentary: clear, warm, dry - Musculoskeletal Musculoskeletal: other (no joint swelling) - Neurologic Neurologic: other (unable to assess), does not follow commend - Psychiatric Psychiatric: other (unable to assess) - Constitutional Vitals: Vital Signs - 12hr 05/06/19 05/06/19 05/06/19 03:57 04:42 08:31 Temperature 99.4 F Pulse Rate 124 H Respiratory 24 Rate Blood Pressure 131/97 O2 Sat by Pulse 96 100 Oximetry O2 Sat by Pulse 96 100 Oximetry [ Assessment] 05/06/19 10:30 Temperature Pulse Rate 117 H Respiratory Rate Blood Pressure 116/77 O2 Sat by Pulse Oximetry O2 Sat by Pulse Oximetry [ Assessment] - Labs CBC & Chem 7: 05/03/19 04:57 05/03/19 04:57 Labs: Abnormal lab results 05/05/19 05/06/19 Range/Units 21:07 05:16 POC Glucose 128 H 239 H (70-105)
--- NOTE | 2019-05-06 15:09 | Progress Note ---
Assessment and Plan Acute hypoxemic respiratory failure, s/p trach to ATP Acute toxic metabolic encephalopathy; MRI consistent with diffuse anoxic injury Diabetic ketoacidosis, resolved. Severe sepsis with shock, resolved Possible aspiration pneumonia. History of polysubstance abuse. Leukocytosis. Elevated serum transaminases,resolved Hyponatremia resolved Anemia that is macrocytic. History of seizure disorder. Severe metabolic acidosis-resolved Acute kidney injury, possibly on chronic -continue trach care, airway clearance techniques, secretion management -continue bronchodilators with pulmonary hygiene per RT - continue to wean supplemental O2 to keep O2 sats > 90% - VTE prophylaxis-enoxaparin - Stress ulcer prophylaxis - continue accuchecks with glycemic control per SSI for target blood glucose 140-180 mg/dL - continue Keppra for seizures - continue mobility protocols / off loading for pressure ulcer prevention - continue other care per attending / other consultants -discharge planning CONDITION: FAIR PROGNOSIS: POOR CODE STATUS:DNAR Subjective Date of service: 05/06/19 Principal diagnosis: Ac Hypoxemic Resp Failure; DKA; Severe sepsis with shock; ANGELICA Interval history: Patient is seen today for: Acute Hypoxemic Resp Failure; Ac toxic metabolic encephalopathy; DKA; Severe sepsis with shock; Possible aspiration pneumonia; History of polysubstance abuse; History of seizure disorder; Acute kidney injury, possibly on chronic Seen and examined at bedside; 24hour events reviewed; nursing and respiratory care staff consulted; no adverse overnight events reported to me; resting peacefully in bed; AMS is persistent; s/p tracheostomy to ATP no emesis or overt aspiration and no high grade fevers. Copious white secretions,on going strong cough, no acute changes reported per RN and RT Vitals, labs,medications, chart reviewed. Objective Vital Signs - 12hr 05/06/19 05/06/19 05/06/19 03:57 04:42 08:31 Temperature 99.4 F Pulse Rate 124 H Respiratory 24 Rate Blood Pressure 131/97 O2 Sat by Pulse 96 100 Oximetry O2 Sat by Pulse 96 100 Oximetry [ Assessment] 05/06/19 05/06/19 10:30 14:54 Temperature Pulse Rate 117 H Respiratory Rate Blood Pressure 116/77 O2 Sat by Pulse Oximetry O2 Sat by Pulse 99 Oximetry [ Assessment] Constitutional: no acute distress, other (young CF normocephalic and atraumatic s/p tracheostomy to ATP, copious secretions. Opening eyes. Not following commands.) Eyes: non-icteric ENT: oropharynx moist Neck: supple, no lymphadenopathy, no JVD, other (midline trach tube) Effort: normal Ascultation: Bilateral: clear, diminished breath sounds, rhonchi Percussion: Bilateral: not dull Cardiovascular: regular rate and rhythm, other (S1,S2) Gastrointestinal: normoactive bowel sounds, soft, non-tender, non-distended, other (PEG tube) Integumentary: normal Extremities: no cyanosis, no edema, pink and warm, pulses normal, no ischemia or petechiae Neurologic: unable to assess (awake, alert, not obeying commands) Psychiatric: other (unable to assess) CBC and BMP: 05/03/19 04:57 05/03/19 04:57 ABG, PT/INR, D-dimer: ABG POC ABG pH 7.565 (7.35-7.45) H 04/19/19 04:35 ABG pH 7.396 pH Units (7.350-7.450) 04/03/19 05:35 POC ABG pCO2 36.2 (35-45) 04/19/19 04:35 ABG pCO2 32.2 mm Hg 04/03/19 05:35 POC ABG pO2 88 (80-105) 04/19/19 04:35 ABG pO2 97.7 mm Hg (80.0-90.0) H 04/03/19 05:35 POC ABG HCO3 32.8 (22-26 mml/L) 04/19/19 04:35 POC ABG Total CO2 34 (23-27mmol/L) 04/19/19 04:35 POC ABG O2 Sat 98 04/19/19 04:35 ABG O2 Saturation 97.6 % (95.0-99.0) 04/03/19 05:35 PT/INR, D-dimer PT 13.9 Sec. (12.2-14.9) 04/01/19 17:14 INR 1.10 (0.87-1.13) 04/01/19 17:14 D-Dimer 4526.86 ng/mlDDU (0-234) H 04/06/19 00:06 Abnormal lab findings: Abnormal Labs 03/29/19 03/29/19 03/29/19 19:11 19:20 19:20 WBC 26.7 H RBC 2.52 L Hgb 8.1 L Hct MCV 148 H MCH MCHC 22 L RDW 18.5 H Plt Count Lymph % (Auto) [place] % (Auto) Lymph # Seg Neutrophils % Seg Neuts % (Manual) 82.0 H Lymphocytes % (Manual) 7.0 L Nucleated RBC % Seg Neutrophils # Seg Neutrophils # Man 21.9 H Lymphocytes # (Manual) Monocytes # (Manual) 1.9 H PT 21.8 H INR 1.95 H APTT 74.5 H* D-Dimer POC ABG pH ABG pH POC ABG pCO2 POC ABG pO2 ABG pO2 ABG HCO3 ABG O2 Saturation ABG Base Excess ABG Hemoglobin VBG pH Oxyhemoglobin Sodium Potassium Chloride Carbon Dioxide BUN Creatinine Glucose POC Glucose > 500 H Lactic Acid Calcium Phosphorus Magnesium Iron TIBC Direct Bilirubin AST ALT Alkaline Phosphatase Total Creatine Kinase CK-MB (CK-2) C-Reactive Protein Total Protein Albumin Vitamin B12 Urine WBC (Auto) Salicylates Acetaminophen Miscellaneous Test Crossmatch 03/29/19 03/29/19 03/29/19 19:20 19:47 20:59 WBC RBC Hgb Hct MCV MCH MCHC RDW Plt Count Lymph % (Auto) [place] % (Auto) Lymph # Seg Neutrophils % Seg Neuts % (Manual) Lymphocytes % (Manual) Nucleated RBC % Seg Neutrophils # Seg Neutrophils # Man Lymphocytes # (Manual) Monocytes # (Manual) PT INR APTT D-Dimer POC ABG pH 6.892 L ABG pH POC ABG pCO2 POC ABG pO2 236 H ABG pO2 ABG HCO3 ABG O2 Saturation ABG Base Excess ABG Hemoglobin VBG pH 6.800 L* Oxyhemoglobin Sodium 118 L* Potassium 9.0 H* Chloride 64.5 L Carbon Dioxide 7 L* BUN 53 H Creatinine 2.1 H Glucose 2196 H* POC Glucose Lactic Acid Calcium 12.4 H* Phosphorus Magnesium Iron TIBC Direct Bilirubin AST 3900 H ALT 1034 H Alkaline Phosphatase 316 H Total Creatine Kinase CK-MB (CK-2) C-Reactive Protein Total Protein 5.1 L Albumin 2.8 L Vitamin B12 Urine WBC (Auto) Salicylates Acetaminophen Miscellaneous Test Crossmatch 03/29/19 03/29/19 03/29/19 22:45 22:45 22:45 WBC RBC Hgb Hct MCV MCH MCHC RDW Plt Count Lymph % (Auto) [place] % (Auto) Lymph # Seg Neutrophils % Seg Neuts % (Manual) Lymphocytes % (Manual) Nucleated RBC % Seg Neutrophils # Seg Neutrophils # Man Lymphocytes # (Manual) Monocytes # (Manual) PT INR APTT D-Dimer POC ABG pH ABG pH POC ABG pCO2 POC ABG pO2 ABG pO2 ABG HCO3 ABG O2 Saturation ABG Base Excess ABG Hemoglobin VBG pH Oxyhemoglobin Sodium 132 L D Potassium 7.0 H* Chloride 84.3 L Carbon Dioxide 3 L* BUN 48 H Creatinine 1.8 H Glucose 1779 H* POC Glucose Lactic Acid Calcium Phosphorus 21.70 H Magnesium 4.70 H Iron TIBC Direct Bilirubin AST ALT Alkaline Phosphatase Total Creatine Kinase 363 H CK-MB (CK-2) C-Reactive Protein Total Protein Albumin Vitamin B12 Urine WBC (Auto) Salicylates Acetaminophen Miscellaneous Test Crossmatch 03/29/19 03/29/19 03/30/19 Unknown Unknown 00:11 WBC RBC Hgb Hct MCV MCH MCHC RDW Plt Count Lymph % (Auto) [place] % (Auto) Lymph # Seg Neutrophils % Seg Neuts % (Manual) Lymphocytes % (Manual) Nucleated RBC % Seg Neutrophils # Seg Neutrophils # Man Lymphocytes # (Manual) Monocytes # (Manual) PT INR APTT D-Dimer POC ABG pH ABG pH POC ABG pCO2 POC ABG pO2 ABG pO2 ABG HCO3 ABG O2 Saturation ABG Base Excess ABG Hemoglobin VBG pH Oxyhemoglobin Sodium 122 L Potassium 7.9 H* 6.4 H* Chloride 75.3 L 89.7 L Carbon Dioxide 3 L* 12 L D BUN 52 H 46 H Creatinine 2.0 H 1.7 H Glucose 2043 H* 1591 H* POC Glucose Lactic Acid Calcium 7.8 L Phosphorus 19.30 H Magnesium 3.90 H Iron TIBC Direct Bilirubin AST ALT Alkaline Phosphatase Total Creatine Kinase CK-MB (CK-2) C-Reactive Protein Total Protein Albumin Vitamin B12 Urine WBC (Auto) Salicylates Acetaminophen Miscellaneous Test Crossmatch 03/30/19 03/30/19 03/30/19 00:11 02:14 02:14 WBC RBC Hgb Hct MCV MCH MCHC RDW Plt Count Lymph % (Auto) [place] % (Auto) Lymph # Seg Neutrophils % Seg Neuts % (Manual) Lymphocytes % (Manual) Nucleated RBC % Seg Neutrophils # Seg Neutrophils # Man Lymphocytes # (Manual) Monocytes # (Manual) PT INR APTT D-Dimer POC ABG pH ABG pH POC ABG pCO2 POC ABG pO2 ABG pO2 ABG HCO3 ABG O2 Saturation ABG Base Excess ABG Hemoglobin VBG pH Oxyhemoglobin Sodium Potassium Chloride Carbon Dioxide 9 L* BUN 45 H Creatinine 1.7 H Glucose 1155 H* POC Glucose Lactic Acid Calcium 7.9 L Phosphorus 10.90 H D 5.30 H D Magnesium 3.10 H 2.90 H Iron TIBC Direct Bilirubin AST ALT Alkaline Phosphatase Total Creatine Kinase CK-MB (CK-2) C-Reactive Protein Total Protein Albumin Vitamin B12 Urine WBC (Auto) Salicylates Acetaminophen Miscellaneous Test Crossmatch 03/30/19 03/30/19 03/30/19 03:15 03:30 04:23 WBC 18.0 H RBC 2.31 L Hgb 7.3 L Hct 23.8 L D MCV 103 H MCH MCHC RDW 17.1 H Plt Count Lymph % (Auto) [place] % (Auto) Lymph # Seg Neutrophils % Seg Neuts % (Manual) 79.0 H Lymphocytes % (Manual) Nucleated RBC % Seg Neutrophils # Seg Neutrophils # Man 14.2 H Lymphocytes # (Manual) Monocytes # (Manual) PT INR APTT D-Dimer POC ABG pH 7.251 L ABG pH POC ABG pCO2 POC ABG pO2 156 H ABG pO2 ABG HCO3 ABG O2 Saturation ABG Base Excess ABG Hemoglobin VBG pH Oxyhemoglobin Sodium Potassium Chloride Carbon Dioxide BUN Creatinine Glucose POC Glucose Lactic Acid Calcium Phosphorus Magnesium Iron TIBC Direct Bilirubin AST ALT Alkaline Phosphatase Total Creatine Kinase CK-MB (CK-2) C-Reactive Protein Total Protein Albumin Vitamin B12 Urine WBC (Auto) Salicylates Acetaminophen Miscellaneous Test Crossmatch See Detail 03/30/19 03/30/19 03/30/19 05:26 05:26 10:38 WBC RBC Hgb Hct MCV MCH MCHC RDW Plt Count Lymph % (Auto) [place] % (Auto) Lymph # Seg Neutrophils % Seg Neuts % (Manual) Lymphocytes % (Manual) Nucleated RBC % Seg Neutrophils # Seg Neutrophils # Man Lymphocytes # (Manual) Monocytes # (Manual) PT INR APTT D-Dimer POC ABG pH ABG pH POC ABG pCO2 POC ABG pO2 ABG pO2 ABG HCO3 ABG O2 Saturation ABG Base Excess ABG Hemoglobin VBG pH Oxyhemoglobin Sodium 158 H D Potassium 3.5 L Chloride 109.3 H Carbon Dioxide 19 L D BUN 40 H Creatinine 1.5 H Glucose 760 H* POC Glucose 380 H Lactic Acid Calcium 7.3 L Phosphorus Magnesium 2.60 H Iron TIBC Direct Bilirubin AST 81299 H ALT 2156 H Alkaline Phosphatase 271 H Total Creatine Kinase 2465 H CK-MB (CK-2) 52.7 H C-Reactive Protein Total Protein 4.5 L Albumin 2.4 L Vitamin B12 Urine WBC (Auto) Salicylates Acetaminophen Miscellaneous Test Crossmatch 03/30/19 03/30/19 03/30/19 11:08 12:25 12:57 WBC RBC Hgb Hct MCV MCH MCHC RDW Plt Count Lymph % (Auto) [place] % (Auto) Lymph # Seg Neutrophils % Seg Neuts % (Manual) Lymphocytes % (Manual) Nucleated RBC % Seg Neutrophils # Seg Neutrophils # Man Lymphocytes # (Manual) Monocytes # (Manual) PT INR APTT D-Dimer POC ABG pH ABG pH POC ABG pCO2 POC ABG pO2 ABG pO2 ABG HCO3 ABG O2 Saturation ABG Base Excess ABG Hemoglobin VBG pH Oxyhemoglobin Sodium 156 H Potassium 3.2 L Chloride 116.4 H Carbon Dioxide 21 L BUN 37 H Creatinine Glucose 162 H POC Glucose 263 H 196 H Lactic Acid Calcium 7.2 L Phosphorus Magnesium Iron TIBC Direct Bilirubin AST ALT Alkaline Phosphatase Total Creatine Kinase CK-MB (CK-2) C-Reactive Protein Total Protein Albumin Vitamin B12 Urine WBC (Auto) Salicylates Acetaminophen Miscellaneous Test Crossmatch 03/30/19 03/30/19 03/30/19 12:57 12:57 12:57 WBC RBC Hgb Hct MCV MCH MCHC RDW Plt Count Lymph % (Auto) [place] % (Auto) Lymph # Seg Neutrophils % Seg Neuts % (Manual) Lymphocytes % (Manual) Nucleated RBC % Seg Neutrophils # Seg Neutrophils # Man Lymphocytes # (Manual) Monocytes # (Manual) PT 21.0 H INR 1.86 H APTT D-Dimer POC ABG pH ABG pH POC ABG pCO2 POC ABG pO2 ABG pO2 ABG HCO3 ABG O2 Saturation ABG Base Excess ABG Hemoglobin VBG pH Oxyhemoglobin Sodium Potassium Chloride Carbon Dioxide BUN Creatinine Glucose POC Glucose Lactic Acid 9.00 H* Calcium Phosphorus Magnesium Iron TIBC Direct Bilirubin AST ALT Alkaline Phosphatase Total Creatine Kinase CK-MB (CK-2) C-Reactive Protein 2.40 H Total Protein Albumin Vitamin B12 Urine WBC (Auto) Salicylates Acetaminophen Miscellaneous Test Crossmatch 03/30/19 03/30/19 03/30/19 13:23 14:00 14:47 WBC RBC Hgb Hct MCV MCH MCHC RDW Plt Count Lymph % (Auto) [place] % (Auto) Lymph # Seg Neutrophils % Seg Neuts % (Manual) Lymphocytes % (Manual) Nucleated RBC % Seg Neutrophils # Seg Neutrophils # Man Lymphocytes # (Manual) Monocytes # (Manual) PT INR APTT D-Dimer POC ABG pH ABG pH POC ABG pCO2 POC ABG pO2 ABG pO2 ABG HCO3 ABG O2 Saturation ABG Base Excess ABG Hemoglobin VBG pH Oxyhemoglobin Sodium Potassium Chloride Carbon Dioxide BUN Creatinine Glucose POC Glucose 176 H 245 H Lactic Acid Calcium Phosphorus Magnesium Iron TIBC Direct Bilirubin AST ALT Alkaline Phosphatase Total Creatine Kinase CK-MB (CK-2) C-Reactive Protein Total Protein Albumin Vitamin B12 Urine WBC (Auto) Salicylates Acetaminophen Miscellaneous Test Flexitest 1 H Crossmatch 03/30/19 03/30/19 03/30/19 16:11 17:11 17:46 WBC RBC Hgb Hct MCV MCH MCHC RDW Plt Count Lymph % (Auto) [place] % (Auto) Lymph # Seg Neutrophils % Seg Neuts % (Manual) Lymphocytes % (Manual) Nucleated RBC % Seg Neutrophils # Seg Neutrophils # Man Lymphocytes # (Manual) Monocytes # (Manual) PT INR APTT D-Dimer POC ABG pH ABG pH POC ABG pCO2 POC ABG pO2 ABG pO2 ABG HCO3 ABG O2 Saturation ABG Base Excess ABG Hemoglobin VBG pH Oxyhemoglobin Sodium Potassium Chloride Carbon Dioxide BUN Creatinine Glucose POC Glucose 181 H 167 H 125 H Lactic Acid Calcium Phosphorus Magnesium Iron TIBC Direct Bilirubin AST ALT Alkaline Phosphatase Total Creatine Kinase CK-MB (CK-2) C-Reactive Protein Total Protein Albumin Vitamin B12 Urine WBC (Auto) Salicylates Acetaminophen Miscellaneous Test Crossmatch 03/30/19 03/30/19 03/30/19 18:59 21:31 22:19 WBC RBC Hgb Hct MCV MCH MCHC RDW Plt Count Lymph % (Auto) [place] % (Auto) Lymph # Seg Neutrophils % Seg Neuts % (Manual) Lymphocytes % (Manual) Nucleated RBC % Seg Neutrophils # Seg Neutrophils # Man Lymphocytes # (Manual) Monocytes # (Manual) PT INR APTT D-Dimer POC ABG pH ABG pH POC ABG pCO2 POC ABG pO2 ABG pO2 ABG HCO3 ABG O2 Saturation ABG Base Excess ABG Hemoglobin VBG pH Oxyhemoglobin Sodium Potassium Chloride Carbon Dioxide BUN Creatinine Glucose POC Glucose 140 H 166 H 115 H Lactic Acid Calcium Phosphorus Magnesium Iron TIBC Direct Bilirubin AST ALT Alkaline Phosphatase Total Creatine Kinase CK-MB (CK-2) C-Reactive Protein Total Protein Albumin Vitamin B12 Urine WBC (Auto) Salicylates Acetaminophen Miscellaneous Test Crossmatch 03/30/19 03/30/19 03/30/19 23:13 Unknown Unknown WBC RBC Hgb Hct MCV MCH MCHC RDW Plt Count Lymph % (Auto) [place] % (Auto) Lymph # Seg Neutrophils % Seg Neuts % (Manual) Lymphocytes % (Manual) Nucleated RBC % Seg Neutrophils # Seg Neutrophils # Man Lymphocytes # (Manual) Monocytes # (Manual) PT INR APTT D-Dimer POC ABG pH ABG pH POC ABG pCO2 POC ABG pO2 ABG pO2 47.8 L ABG HCO3 18.8 L ABG O2 Saturation 83.8 L ABG Base Excess -5.4 L ABG Hemoglobin 6.8 L VBG pH Oxyhemoglobin 81.8 L Sodium 157 H Potassium 3.3 L Chloride 117.9 H Carbon Dioxide 20 L BUN 36 H Creatinine Glucose 150 H POC Glucose 112 H Lactic Acid Calcium 7.2 L Phosphorus Magnesium Iron TIBC Direct Bilirubin AST ALT Alkaline Phosphatase Total Creatine Kinase CK-MB (CK-2) C-Reactive Protein Total Protein Albumin Vitamin B12 Urine WBC (Auto) Salicylates Acetaminophen Miscellaneous Test Crossmatch 03/30/19 03/30/19 03/31/19 Unknown Unknown 00:03 WBC RBC Hgb Hct MCV MCH MCHC RDW Plt Count Lymph % (Auto) [place] % (Auto) Lymph # Seg Neutrophils % Seg Neuts % (Manual) Lymphocytes % (Manual) Nucleated RBC % Seg Neutrophils # Seg Neutrophils # Man Lymphocytes # (Manual) Monocytes # (Manual) PT INR APTT D-Dimer POC ABG pH ABG pH POC ABG pCO2 POC ABG pO2 ABG pO2 ABG HCO3 ABG O2 Saturation ABG Base Excess ABG Hemoglobin VBG pH Oxyhemoglobin Sodium Potassium Chloride Carbon Dioxide BUN Creatinine Glucose POC Glucose 188 H Lactic Acid Calcium Phosphorus Magnesium Iron TIBC Direct Bilirubin AST ALT Alkaline Phosphatase Total Creatine Kinase CK-MB (CK-2) C-Reactive Protein Total Protein Albumin Vitamin B12 Urine WBC (Auto) Salicylates 0.8 L Acetaminophen < 5.0 L Miscellaneous Test Crossmatch 03/31/19 03/31/19 03/31/19 01:18 03:07 03:50 WBC RBC Hgb Hct MCV MCH MCHC RDW Plt Count Lymph % (Auto) [place] % (Auto) Lymph # Seg Neutrophils % Seg Neuts % (Manual) Lymphocytes % (Manual) Nucleated RBC % Seg Neutrophils # Seg Neutrophils # Man Lymphocytes # (Manual) Monocytes # (Manual) PT INR APTT D-Dimer POC ABG pH ABG pH 7.525 H POC ABG pCO2 POC ABG pO2 ABG pO2 178.0 H ABG HCO3 19.5 L ABG O2 Saturation 99.2 H ABG Base Excess -3.1 L ABG Hemoglobin 5.8 L VBG pH Oxyhemoglobin Sodium Potassium Chloride Carbon Dioxide BUN Creatinine Glucose POC Glucose 114 H 107 H Lactic Acid Calcium Phosphorus Magnesium Iron TIBC Direct Bilirubin AST ALT Alkaline Phosphatase Total Creatine Kinase CK-MB (CK-2) C-Reactive Protein Total Protein Albumin Vitamin B12 Urine WBC (Auto) Salicylates Acetaminophen Miscellaneous Test Crossmatch 03/31/19 03/31/19 03/31/19 03:51 03:51 04:05 WBC RBC 1.89 L Hgb 6.1 L Hct 18.2 L* MCV MCH MCHC RDW 17.7 H Plt Count 89 L Lymph % (Auto) [place] % (Auto) Lymph # Seg Neutrophils % Seg Neuts % (Manual) 86.0 H Lymphocytes % (Manual) 10.0 L Nucleated RBC % 1.0 H Seg Neutrophils # Seg Neutrophils # Man Lymphocytes # (Manual) 0.7 L Monocytes # (Manual) PT INR APTT D-Dimer POC ABG pH ABG pH POC ABG pCO2 POC ABG pO2 ABG pO2 ABG HCO3 ABG O2 Saturation ABG Base Excess ABG Hemoglobin VBG pH Oxyhemoglobin Sodium 151 H Potassium 3.2 L Chloride 119.4 H Carbon Dioxide 17 L BUN 35 H Creatinine Glucose 139 H POC Glucose 153 H Lactic Acid Calcium 7.1 L Phosphorus Magnesium Iron TIBC Direct Bilirubin AST ALT Alkaline Phosphatase Total Creatine Kinase CK-MB (CK-2) C-Reactive Protein Total Protein Albumin Vitamin B12 Urine WBC (Auto) Salicylates Acetaminophen Miscellaneous Test Crossmatch 03/31/19 03/31/19 03/31/19 05:05 05:35 06:23 WBC RBC Hgb Hct MCV MCH MCHC RDW Plt Count Lymph % (Auto) [place] % (Auto) Lymph # Seg Neutrophils % Seg Neuts % (Manual) Lymphocytes % (Manual) Nucleated RBC % Seg Neutrophils # Seg Neutrophils # Man Lymphocytes # (Manual) Monocytes # (Manual) PT INR APTT D-Dimer POC ABG pH ABG pH POC ABG pCO2 POC ABG pO2 ABG pO2 ABG HCO3 ABG O2 Saturation ABG Base Excess ABG Hemoglobin VBG pH Oxyhemoglobin Sodium Potassium Chloride Carbon Dioxide BUN Creatinine Glucose POC Glucose 176 H 133 H Lactic Acid 3.20 H* Calcium Phosphorus Magnesium Iron TIBC Direct Bilirubin AST ALT Alkaline Phosphatase Total Creatine Kinase CK-MB (CK-2) C-Reactive Protein Total Protein Albumin Vitamin B12 Urine WBC (Auto) Salicylates Acetaminophen Miscellaneous Test Crossmatch 03/31/19 03/31/19 03/31/19 07:50 07:51 08:20 WBC RBC Hgb Hct MCV MCH MCHC RDW Plt Count Lymph % (Auto) [place] % (Auto) Lymph # Seg Neutrophils % Seg Neuts % (Manual) Lymphocytes % (Manual) Nucleated RBC % Seg Neutrophils # Seg Neutrophils # Man Lymphocytes # (Manual) Monocytes # (Manual) PT INR APTT D-Dimer POC ABG pH ABG pH POC ABG pCO2 POC ABG pO2 ABG pO2 ABG HCO3 ABG O2 Saturation ABG Base Excess ABG Hemoglobin VBG pH Oxyhemoglobin Sodium Potassium Chloride Carbon Dioxide BUN Creatinine Glucose POC Glucose 135 H Lactic Acid 3.30 H* Calcium Phosphorus Magnesium Iron 26 L TIBC 193 L Direct Bilirubin AST ALT Alkaline Phosphatase Total Creatine Kinase CK-MB (CK-2) C-Reactive Protein Total Protein Albumin Vitamin B12 Urine WBC (Auto) Salicylates Acetaminophen Miscellaneous Test Crossmatch 03/31/19 03/31/19 03/31/19 08:20 08:20 09:06 WBC RBC Hgb Hct MCV MCH MCHC RDW Plt Count Lymph % (Auto) [place] % (Auto) Lymph # Seg Neutrophils % Seg Neuts % (Manual) Lymphocytes % (Manual) Nucleated RBC % Seg Neutrophils # Seg Neutrophils # Man Lymphocytes # (Manual) Monocytes # (Manual) PT INR APTT D-Dimer POC ABG pH ABG pH POC ABG pCO2 POC ABG pO2 ABG pO2 ABG HCO3 ABG O2 Saturation ABG Base Excess ABG Hemoglobin VBG pH Oxyhemoglobin Sodium 153 H Potassium 3.0 L Chloride 118.9 H Carbon Dioxide 18 L BUN 37 H Creatinine Glucose 132 H POC Glucose 145 H Lactic Acid Calcium 7.1 L Phosphorus Magnesium Iron TIBC Direct Bilirubin AST ALT Alkaline Phosphatase Total Creatine Kinase CK-MB (CK-2) C-Reactive Protein Total Protein Albumin Vitamin B12 > 2000 H Urine WBC (Auto) Salicylates Acetaminophen Miscellaneous Test Crossmatch 03/31/19 03/31/19 03/31/19 10:47 11:49 13:04 WBC RBC Hgb Hct MCV MCH MCHC RDW Plt Count Lymph % (Auto) [place] % (Auto) Lymph # Seg Neutrophils % Seg Neuts % (Manual) Lymphocytes % (Manual) Nucleated RBC % Seg Neutrophils # Seg Neutrophils # Man Lymphocytes # (Manual) Monocytes # (Manual) PT INR APTT D-Dimer POC ABG pH ABG pH POC ABG pCO2 POC ABG pO2 ABG pO2 ABG HCO3 ABG O2 Saturation ABG Base Excess ABG Hemoglobin VBG pH Oxyhemoglobin Sodium Potassium Chloride Carbon Dioxide BUN Creatinine Glucose POC Glucose 153 H 174 H 214 H Lactic Acid Calcium Phosphorus Magnesium Iron TIBC Direct Bilirubin AST ALT Alkaline Phosphatase Total Creatine Kinase CK-MB (CK-2) C-Reactive Protein Total Protein Albumin Vitamin B12 Urine WBC (Auto) Salicylates Acetaminophen Miscellaneous Test Crossmatch 03/31/19 03/31/19 03/31/19 13:42 15:08 16:08 WBC RBC Hgb Hct MCV MCH MCHC RDW Plt Count Lymph % (Auto) [place] % (Auto) Lymph # Seg Neutrophils % Seg Neuts % (Manual) Lymphocytes % (Manual) Nucleated RBC % Seg Neutrophils # Seg Neutrophils # Man Lymphocytes # (Manual) Monocytes # (Manual) PT INR APTT D-Dimer POC ABG pH ABG pH POC ABG pCO2 POC ABG pO2 ABG pO2 ABG HCO3 ABG O2 Saturation ABG Base Excess ABG Hemoglobin VBG pH Oxyhemoglobin Sodium Potassium Chloride Carbon Dioxide BUN Creatinine Glucose POC Glucose 186 H 136 H 150 H Lactic Acid Calcium Phosphorus Magnesium Iron TIBC Direct Bilirubin AST ALT Alkaline Phosphatase Total Creatine Kinase CK-MB (CK-2) C-Reactive Protein Total Protein Albumin Vitamin B12 Urine WBC (Auto) Salicylates Acetaminophen Miscellaneous Test Crossmatch 03/31/19 03/31/19 03/31/19 17:11 17:30 17:30 WBC RBC Hgb 7.7 L Hct 23.0 L MCV MCH MCHC RDW Plt Count Lymph % (Auto) [place] % (Auto) Lymph # Seg Neutrophils % Seg Neuts % (Manual) Lymphocytes % (Manual) Nucleated RBC % Seg Neutrophils # Seg Neutrophils # Man Lymphocytes # (Manual) Monocytes # (Manual) PT INR APTT D-Dimer POC ABG pH ABG pH POC ABG pCO2 POC ABG pO2 ABG pO2 ABG HCO3 ABG O2 Saturation ABG Base Excess ABG Hemoglobin VBG pH Oxyhemoglobin Sodium 153 H Potassium 3.5 L Chloride 119.3 H Carbon Dioxide 20 L BUN 34 H Creatinine Glucose 162 H POC Glucose 140 H Lactic Acid Calcium 7.6 L Phosphorus Magnesium Iron TIBC Direct Bilirubin AST ALT Alkaline Phosphatase Total Creatine Kinase CK-MB (CK-2) C-Reactive Protein Total Protein Albumin Vitamin B12 Urine WBC (Auto) Salicylates Acetaminophen Miscellaneous Test Crossmatch 03/31/19 03/31/19 03/31/19 17:59 18:58 20:28 WBC RBC Hgb Hct MCV MCH MCHC RDW Plt Count Lymph % (Auto) [place] % (Auto) Lymph # Seg Neutrophils % Seg Neuts % (Manual) Lymphocytes % (Manual) Nucleated RBC % Seg Neutrophils # Seg Neutrophils # Man Lymphocytes # (Manual) Monocytes # (Manual) PT INR APTT D-Dimer POC ABG pH ABG pH POC ABG pCO2 POC ABG pO2 ABG pO2 ABG HCO3 ABG O2 Saturation ABG Base Excess ABG Hemoglobin VBG pH Oxyhemoglobin Sodium Potassium Chloride Carbon Dioxide BUN Creatinine Glucose POC Glucose 156 H 152 H 138 H Lactic Acid Calcium Phosphorus Magnesium Iron TIBC Direct Bilirubin AST ALT Alkaline Phosphatase Total Creatine Kinase CK-MB (CK-2) C-Reactive Protein Total Protein Albumin Vitamin B12 Urine WBC (Auto) Salicylates Acetaminophen Miscellaneous Test Crossmatch 03/31/19 03/31/19 03/31/19 21:09 22:15 23:10 WBC RBC Hgb Hct MCV MCH MCHC RDW Plt Count Lymph % (Auto) [place] % (Auto) Lymph # Seg Neutrophils % Seg Neuts % (Manual) Lymphocytes % (Manual) Nucleated RBC % Seg Neutrophils # Seg Neutrophils # Man Lymphocytes # (Manual) Monocytes # (Manual) PT INR APTT D-Dimer POC ABG pH ABG pH POC ABG pCO2 POC ABG pO2 ABG pO2 ABG HCO3 ABG O2 Saturation ABG Base Excess ABG Hemoglobin VBG pH Oxyhemoglobin Sodium Potassium Chloride Carbon Dioxide BUN Creatinine Glucose POC Glucose 136 H 137 H 148 H Lactic Acid Calcium Phosphorus Magnesium Iron TIBC Direct Bilirubin AST ALT Alkaline Phosphatase Total Creatine Kinase CK-MB (CK-2) C-Reactive Protein Total Protein Albumin Vitamin B12 Urine WBC (Auto) Salicylates Acetaminophen Miscellaneous Test Crossmatch 04/01/19 04/01/19 04/01/19 00:05 01:17 02:11 WBC RBC Hgb Hct MCV MCH MCHC RDW Plt Count Lymph % (Auto) [place] % (Auto) Lymph # Seg Neutrophils % Seg Neuts % (Manual) Lymphocytes % (Manual) Nucleated RBC % Seg Neutrophils # Seg Neutrophils # Man Lymphocytes # (Manual) Monocytes # (Manual) PT INR APTT D-Dimer POC ABG pH ABG pH POC ABG pCO2 POC ABG pO2 ABG pO2 ABG HCO3 ABG O2 Saturation ABG Base Excess ABG Hemoglobin VBG pH Oxyhemoglobin Sodium Potassium Chloride Carbon Dioxide BUN Creatinine Glucose POC Glucose 143 H 151 H 155 H Lactic Acid Calcium Phosphorus Magnesium Iron TIBC Direct Bilirubin AST ALT Alkaline Phosphatase Total Creatine Kinase CK-MB (CK-2) C-Reactive Protein Total Protein Albumin Vitamin B12 Urine WBC (Auto) Salicylates Acetaminophen Miscellaneous Test Crossmatch 04/01/19 04/01/19 04/01/19 03:12 04:03 04:16 WBC RBC Hgb Hct MCV MCH MCHC RDW Plt Count Lymph % (Auto) [place] % (Auto) Lymph # Seg Neutrophils % Seg Neuts % (Manual) Lymphocytes % (Manual) Nucleated RBC % Seg Neutrophils # Seg Neutrophils # Man Lymphocytes # (Manual) Monocytes # (Manual) PT INR APTT D-Dimer POC ABG pH ABG pH POC ABG pCO2 POC ABG pO2 ABG pO2 ABG HCO3 ABG O2 Saturation ABG Base Excess ABG Hemoglobin VBG pH Oxyhemoglobin Sodium Potassium Chloride Carbon Dioxide BUN Creatinine Glucose POC Glucose 140 H 143 H 142 H Lactic Acid Calcium Phosphorus Magnesium Iron TIBC Direct Bilirubin AST ALT Alkaline Phosphatase Total Creatine Kinase CK-MB (CK-2) C-Reactive Protein Total Protein Albumin Vitamin B12 Urine WBC (Auto) Salicylates Acetaminophen Miscellaneous Test Crossmatch 04/01/19 04/01/19 04/01/19 05:01 05:01 05:08 WBC RBC 2.05 L Hgb 6.8 L Hct 20.5 L MCV 100 H MCH 33 H MCHC RDW 17.7 H Plt Count 53 L Lymph % (Auto) [place] % (Auto) Lymph # Seg Neutrophils % Seg Neuts % (Manual) 71.0 H Lymphocytes % (Manual) Nucleated RBC % Seg Neutrophils # Seg Neutrophils # Man Lymphocytes # (Manual) Monocytes # (Manual) PT INR APTT D-Dimer POC ABG pH ABG pH POC ABG pCO2 POC ABG pO2 ABG pO2 ABG HCO3 ABG O2 Saturation ABG Base Excess ABG Hemoglobin VBG pH Oxyhemoglobin Sodium Potassium Chloride Carbon Dioxide BUN Creatinine Glucose POC Glucose 119 H Lactic Acid Calcium Phosphorus Magnesium Iron TIBC Direct Bilirubin 0.3 H AST 4601 H ALT 1542 H Alkaline Phosphatase 185 H Total Creatine Kinase CK-MB (CK-2) C-Reactive Protein Total Protein 3.8 L Albumin 1.6 L Vitamin B12 Urine WBC (Auto) Salicylates Acetaminophen Miscellaneous Test Crossmatch 04/01/19 04/01/19 04/01/19 05:23 06:37 08:15 WBC RBC Hgb Hct MCV MCH MCHC RDW Plt Count Lymph % (Auto) [place] % (Auto) Lymph # Seg Neutrophils % Seg Neuts % (Manual) Lymphocytes % (Manual) Nucleated RBC % Seg Neutrophils # Seg Neutrophils # Man Lymphocytes # (Manual) Monocytes # (Manual) PT INR APTT D-Dimer POC ABG pH ABG pH POC ABG pCO2 POC ABG pO2 ABG pO2 ABG HCO3 ABG O2 Saturation ABG Base Excess ABG Hemoglobin VBG pH Oxyhemoglobin Sodium Potassium Chloride Carbon Dioxide BUN Creatinine Glucose POC Glucose 115 H 124 H 138 H Lactic Acid Calcium Phosphorus Magnesium Iron TIBC Direct Bilirubin AST ALT Alkaline Phosphatase Total Creatine Kinase CK-MB (CK-2) C-Reactive Protein Total Protein Albumin Vitamin B12 Urine WBC (Auto) Salicylates Acetaminophen Miscellaneous Test Crossmatch 04/01/19 04/01/19 04/01/19 09:50 10:10 10:31 WBC RBC Hgb 6.5 L Hct 19.2 L* MCV MCH MCHC RDW Plt Count Lymph % (Auto) [place] % (Auto) Lymph # Seg Neutrophils % Seg Neuts % (Manual) Lymphocytes % (Manual) Nucleated RBC % Seg Neutrophils # Seg Neutrophils # Man Lymphocytes # (Manual) Monocytes # (Manual) PT INR APTT D-Dimer POC ABG pH ABG pH POC ABG pCO2 POC ABG pO2 ABG pO2 ABG HCO3 ABG O2 Saturation ABG Base Excess ABG Hemoglobin VBG pH Oxyhemoglobin Sodium 149 H Potassium 3.5 L Chloride 119.9 H Carbon Dioxide 21 L BUN 33 H Creatinine 0.5 L Glucose 142 H POC Glucose 185 H Lactic Acid Calcium 7.3 L Phosphorus Magnesium Iron TIBC Direct Bilirubin AST 3686 H ALT 1440 H Alkaline Phosphatase 185 H Total Creatine Kinase CK-MB (CK-2) C-Reactive Protein Total Protein 3.7 L Albumin 1.8 L Vitamin B12 Urine WBC (Auto) Salicylates Acetaminophen Miscellaneous Test Crossmatch 04/01/19 04/01/19 04/01/19 11:35 13:05 14:35 WBC RBC Hgb Hct MCV MCH MCHC RDW Plt Count Lymph % (Auto) [place] % (Auto) Lymph # Seg Neutrophils % Seg Neuts % (Manual) Lymphocytes % (Manual) Nucleated RBC % Seg Neutrophils # Seg Neutrophils # Man Lymphocytes # (Manual) Monocytes # (Manual) PT INR APTT D-Dimer POC ABG pH ABG pH POC ABG pCO2 POC ABG pO2 ABG pO2 ABG HCO3 ABG O2 Saturation ABG Base Excess ABG Hemoglobin VBG pH Oxyhemoglobin Sodium Potassium Chloride Carbon Dioxide BUN Creatinine Glucose POC Glucose 201 H 169 H 134 H Lactic Acid Calcium Phosphorus Magnesium Iron TIBC Direct Bilirubin AST ALT Alkaline Phosphatase Total Creatine Kinase CK-MB (CK-2) C-Reactive Protein Total Protein Albumin Vitamin B12 Urine WBC (Auto) Salicylates Acetaminophen Miscellaneous Test Crossmatch 04/01/19 04/01/19 04/01/19 17:13 17:14 18:30 WBC RBC Hgb Hct MCV MCH MCHC RDW Plt Count Lymph % (Auto) [place] % (Auto) Lymph # Seg Neutrophils % Seg Neuts % (Manual) Lymphocytes % (Manual) Nucleated RBC % Seg Neutrophils # Seg Neutrophils # Man Lymphocytes # (Manual) Monocytes # (Manual) PT INR APTT D-Dimer 5203.68 H POC ABG pH ABG pH POC ABG pCO2 POC ABG pO2 ABG pO2 ABG HCO3 ABG O2 Saturation ABG Base Excess ABG Hemoglobin VBG pH Oxyhemoglobin Sodium Potassium Chloride Carbon Dioxide BUN Creatinine Glucose POC Glucose 69 L 128 H Lactic Acid Calcium Phosphorus Magnesium Iron TIBC Direct Bilirubin AST ALT Alkaline Phosphatase Total Creatine Kinase CK-MB (CK-2) C-Reactive Protein Total Protein Albumin Vitamin B12 Urine WBC (Auto) Salicylates Acetaminophen Miscellaneous Test Crossmatch 04/01/19 04/01/19 04/02/19 22:50 Unknown 03:40 WBC RBC Hgb Hct MCV MCH MCHC RDW Plt Count Lymph % (Auto) [place] % (Auto) Lymph # Seg Neutrophils % Seg Neuts % (Manual) Lymphocytes % (Manual) Nucleated RBC % Seg Neutrophils # Seg Neutrophils # Man Lymphocytes # (Manual) Monocytes # (Manual) PT INR APTT D-Dimer POC ABG pH ABG pH POC ABG pCO2 POC ABG pO2 ABG pO2 78.3 L 142.8 H ABG HCO3 15.5 L ABG O2 Saturation ABG Base Excess -3.5 L -8.2 L ABG Hemoglobin 6.8 L 8.2 L VBG pH Oxyhemoglobin 94.3 L Sodium Potassium Chloride Carbon Dioxide BUN Creatinine Glucose POC Glucose 342 H Lactic Acid Calcium Phosphorus Magnesium Iron TIBC Direct Bilirubin AST ALT Alkaline Phosphatase Total Creatine Kinase CK-MB (CK-2) C-Reactive Protein Total Protein Albumin Vitamin B12 Urine WBC (Auto) Salicylates Acetaminophen Miscellaneous Test Crossmatch 04/02/19 04/02/19 04/02/19 03:49 06:50 07:48 WBC RBC 2.65 L Hgb 8.6 L Hct 25.1 L MCV MCH MCHC RDW 17.6 H Plt Count 48 L Lymph % (Auto) [place] % (Auto) Lymph # Seg Neutrophils % Seg Neuts % (Manual) Lymphocytes % (Manual) Nucleated RBC % Seg Neutrophils # Seg Neutrophils # Man Lymphocytes # (Manual) Monocytes # (Manual) PT INR APTT D-Dimer POC ABG pH ABG pH POC ABG pCO2 POC ABG pO2 ABG pO2 ABG HCO3 ABG O2 Saturation ABG Base Excess ABG Hemoglobin VBG pH Oxyhemoglobin Sodium Potassium Chloride Carbon Dioxide BUN Creatinine Glucose POC Glucose 247 H 200 H Lactic Acid Calcium Phosphorus Magnesium Iron TIBC Direct Bilirubin AST ALT Alkaline Phosphatase Total Creatine Kinase CK-MB (CK-2) C-Reactive Protein Total Protein Albumin Vitamin B12 Urine WBC (Auto) Salicylates Acetaminophen Miscellaneous Test Crossmatch 04/02/19 04/02/19 04/02/19 07:48 11:18 14:07 WBC RBC Hgb Hct MCV MCH MCHC RDW Plt Count Lymph % (Auto) [place] % (Auto) Lymph # Seg Neutrophils % Seg Neuts % (Manual) Lymphocytes % (Manual) Nucleated RBC % Seg Neutrophils # Seg Neutrophils # Man Lymphocytes # (Manual) Monocytes # (Manual) PT INR APTT D-Dimer POC ABG pH ABG pH POC ABG pCO2 POC ABG pO2 ABG pO2 ABG HCO3 ABG O2 Saturation ABG Base Excess ABG Hemoglobin VBG pH Oxyhemoglobin Sodium Potassium 3.5 L Chloride 115.7 H Carbon Dioxide 19 L BUN 29 H Creatinine 0.5 L Glucose 159 H POC Glucose 154 H 149 H Lactic Acid Calcium 7.5 L Phosphorus Magnesium Iron TIBC Direct Bilirubin AST 1418 H ALT 1134 H Alkaline Phosphatase 242 H Total Creatine Kinase CK-MB (CK-2) C-Reactive Protein Total Protein 4.2 L Albumin 2.1 L Vitamin B12 Urine WBC (Auto) Salicylates Acetaminophen Miscellaneous Test Crossmatch 04/02/19 04/02/19 04/02/19 18:09 19:46 23:05 WBC RBC Hgb Hct MCV MCH MCHC RDW Plt Count Lymph % (Auto) [place] % (Auto) Lymph # Seg Neutrophils % Seg Neuts % (Manual) Lymphocytes % (Manual) Nucleated RBC % Seg Neutrophils # Seg Neutrophils # Man Lymphocytes # (Manual) Monocytes # (Manual) PT INR APTT D-Dimer POC ABG pH ABG pH POC ABG pCO2 POC ABG pO2 ABG pO2 ABG HCO3 ABG O2 Saturation ABG Base Excess ABG Hemoglobin VBG pH Oxyhemoglobin Sodium Potassium Chloride Carbon Dioxide BUN Creatinine Glucose POC Glucose 188 H 209 H 247 H Lactic Acid Calcium Phosphorus Magnesium Iron TIBC Direct Bilirubin AST ALT Alkaline Phosphatase Total Creatine Kinase CK-MB (CK-2) C-Reactive Protein Total Protein Albumin Vitamin B12 Urine WBC (Auto) Salicylates Acetaminophen Miscellaneous Test Crossmatch 04/03/19 04/03/19 04/03/19 02:58 03:40 03:40 WBC RBC 2.87 L Hgb 9.3 L Hct 27.0 L MCV MCH MCHC RDW 17.2 H Plt Count 65 L Lymph % (Auto) [place] % (Auto) 9.8 H Lymph # 1.1 L Seg Neutrophils % Seg Neuts % (Manual) Lymphocytes % (Manual) Nucleated RBC % Seg Neutrophils # Seg Neutrophils # Man Lymphocytes # (Manual) Monocytes # (Manual) PT INR APTT D-Dimer POC ABG pH ABG pH POC ABG pCO2 POC ABG pO2 ABG pO2 ABG HCO3 ABG O2 Saturation ABG Base Excess ABG Hemoglobin VBG pH Oxyhemoglobin Sodium 147 H Potassium 3.5 L Chloride 116.7 H Carbon Dioxide 18 L BUN Creatinine 0.4 L Glucose 150 H POC Glucose 166 H Lactic Acid Calcium 8.1 L Phosphorus 2.20 L Magnesium Iron TIBC Direct Bilirubin AST 594 H ALT 861 H Alkaline Phosphatase 299 H Total Creatine Kinase CK-MB (CK-2) C-Reactive Protein Total Protein 4.4 L Albumin 2.1 L Vitamin B12 Urine WBC (Auto) Salicylates Acetaminophen Miscellaneous Test Crossmatch 04/03/19 04/03/19 04/03/19 05:35 07:02 08:23 WBC RBC Hgb Hct MCV MCH MCHC RDW Plt Count Lymph % (Auto) [place] % (Auto) Lymph # Seg Neutrophils % Seg Neuts % (Manual) Lymphocytes % (Manual) Nucleated RBC % Seg Neutrophils # Seg Neutrophils # Man Lymphocytes # (Manual) Monocytes # (Manual) PT INR APTT D-Dimer POC ABG pH ABG pH POC ABG pCO2 POC ABG pO2 ABG pO2 97.7 H ABG HCO3 19.3 L ABG O2 Saturation ABG Base Excess -5.0 L ABG Hemoglobin 8.0 L VBG pH Oxyhemoglobin Sodium Potassium Chloride Carbon Dioxide BUN Creatinine Glucose POC Glucose 135 H 132 H Lactic Acid Calcium Phosphorus Magnesium Iron TIBC Direct Bilirubin AST ALT Alkaline Phosphatase Total Creatine Kinase CK-MB (CK-2) C-Reactive Protein Total Protein Albumin Vitamin B12 Urine WBC (Auto) Salicylates Acetaminophen Miscellaneous Test Crossmatch 04/03/19 04/03/19 04/03/19 11:58 15:11 17:53 WBC RBC Hgb Hct MCV MCH MCHC RDW Plt Count Lymph % (Auto) [place] % (Auto) Lymph # Seg Neutrophils % Seg Neuts % (Manual) Lymphocytes % (Manual) Nucleated RBC % Seg Neutrophils # Seg Neutrophils # Man Lymphocytes # (Manual) Monocytes # (Manual) PT INR APTT D-Dimer POC ABG pH ABG pH POC ABG pCO2 POC ABG pO2 ABG pO2 ABG HCO3 ABG O2 Saturation ABG Base Excess ABG Hemoglobin VBG pH Oxyhemoglobin Sodium Potassium Chloride Carbon Dioxide BUN Creatinine Glucose POC Glucose 179 H 213 H 223 H Lactic Acid Calcium Phosphorus Magnesium Iron TIBC Direct Bilirubin AST ALT Alkaline Phosphatase Total Creatine Kinase CK-MB (CK-2) C-Reactive Protein Total Protein Albumin Vitamin B12 Urine WBC (Auto) Salicylates Acetaminophen Miscellaneous Test Crossmatch 04/03/19 04/04/19 04/04/19 23:06 02:36 06:41 WBC RBC Hgb Hct MCV MCH MCHC RDW Plt Count Lymph % (Auto) [place] % (Auto) Lymph # Seg Neutrophils % Seg Neuts % (Manual) Lymphocytes % (Manual) Nucleated RBC % Seg Neutrophils # Seg Neutrophils # Man Lymphocytes # (Manual) Monocytes # (Manual) PT INR APTT D-Dimer POC ABG pH ABG pH POC ABG pCO2 POC ABG pO2 ABG pO2 ABG HCO3 ABG O2 Saturation ABG Base Excess ABG Hemoglobin VBG pH Oxyhemoglobin Sodium Potassium Chloride Carbon Dioxide BUN Creatinine Glucose POC Glucose 189 H 157 H 131 H Lactic Acid Calcium Phosphorus Magnesium Iron TIBC Direct Bilirubin AST ALT Alkaline Phosphatase Total Creatine Kinase CK-MB (CK-2) C-Reactive Protein Total Protein Albumin Vitamin B12 Urine WBC (Auto) Salicylates Acetaminophen Miscellaneous Test Crossmatch 04/04/19 04/04/19 04/04/19 11:42 15:45 18:21 WBC RBC Hgb Hct MCV MCH MCHC RDW Plt Count Lymph % (Auto) [place] % (Auto) Lymph # Seg Neutrophils % Seg Neuts % (Manual) Lymphocytes % (Manual) Nucleated RBC % Seg Neutrophils # Seg Neutrophils # Man Lymphocytes # (Manual) Monocytes # (Manual) PT INR APTT D-Dimer POC ABG pH ABG pH POC ABG pCO2 POC ABG pO2 ABG pO2 ABG HCO3 ABG O2 Saturation ABG Base Excess ABG Hemoglobin VBG pH Oxyhemoglobin Sodium Potassium Chloride Carbon Dioxide BUN Creatinine Glucose POC Glucose 233 H 236 H 255 H Lactic Acid Calcium Phosphorus Magnesium Iron TIBC Direct Bilirubin AST ALT Alkaline Phosphatase Total Creatine Kinase CK-MB (CK-2) C-Reactive Protein Total Protein Albumin Vitamin B12 Urine WBC (Auto) Salicylates Acetaminophen Miscellaneous Test Crossmatch 04/04/19 04/05/19 04/05/19 21:21 03:06 06:05 WBC RBC 2.68 L Hgb 8.5 L Hct 26.3 L MCV 98 H MCH MCHC RDW 17.4 H Plt Count Lymph % (Auto) [place] % (Auto) Lymph # Seg Neutrophils % Seg Neuts % (Manual) Lymphocytes % (Manual) Nucleated RBC % Seg Neutrophils # Seg Neutrophils # Man Lymphocytes # (Manual) Monocytes # (Manual) PT INR APTT D-Dimer POC ABG pH ABG pH POC ABG pCO2 POC ABG pO2 ABG pO2 ABG HCO3 ABG O2 Saturation ABG Base Excess ABG Hemoglobin VBG pH Oxyhemoglobin Sodium Potassium Chloride Carbon Dioxide BUN Creatinine Glucose POC Glucose 132 H 161 H Lactic Acid Calcium Phosphorus Magnesium Iron TIBC Direct Bilirubin AST ALT Alkaline Phosphatase Total Creatine Kinase CK-MB (CK-2) C-Reactive Protein Total Protein Albumin Vitamin B12 Urine WBC (Auto) Salicylates Acetaminophen Miscellaneous Test Crossmatch 04/05/19 04/05/19 04/05/19 06:05 06:49 10:23 WBC RBC Hgb Hct MCV MCH MCHC RDW Plt Count Lymph % (Auto) [place] % (Auto) Lymph # Seg Neutrophils % Seg Neuts % (Manual) Lymphocytes % (Manual) Nucleated RBC % Seg Neutrophils # Seg Neutrophils # Man Lymphocytes # (Manual) Monocytes # (Manual) PT INR APTT D-Dimer POC ABG pH ABG pH POC ABG pCO2 POC ABG pO2 ABG pO2 ABG HCO3 ABG O2 Saturation ABG Base Excess ABG Hemoglobin VBG pH Oxyhemoglobin Sodium Potassium Chloride 112.5 H Carbon Dioxide BUN Creatinine 0.2 L Glucose 237 H POC Glucose 283 H 296 H Lactic Acid Calcium 7.9 L Phosphorus Magnesium Iron TIBC Direct Bilirubin AST ALT Alkaline Phosphatase Total Creatine Kinase CK-MB (CK-2) C-Reactive Protein Total Protein Albumin Vitamin B12 Urine WBC (Auto) Salicylates Acetaminophen Miscellaneous Test Crossmatch 04/05/19 04/05/19 04/05/19 14:46 18:19 20:35 WBC RBC Hgb Hct MCV MCH MCHC RDW Plt Count Lymph % (Auto) [place] % (Auto) Lymph # Seg Neutrophils % Seg Neuts % (Manual) Lymphocytes % (Manual) Nucleated RBC % Seg Neutrophils # Seg Neutrophils # Man Lymphocytes # (Manual) Monocytes # (Manual) PT INR APTT D-Dimer POC ABG pH ABG pH POC ABG pCO2 POC ABG pO2 ABG pO2 ABG HCO3 ABG O2 Saturation ABG Base Excess ABG Hemoglobin VBG pH Oxyhemoglobin Sodium Potassium Chloride Carbon Dioxide BUN Creatinine Glucose POC Glucose 225 H 259 H 236 H Lactic Acid Calcium Phosphorus Magnesium Iron TIBC Direct Bilirubin AST ALT Alkaline Phosphatase Total Creatine Kinase CK-MB (CK-2) C-Reactive Protein Total Protein Albumin Vitamin B12 Urine WBC (Auto) Salicylates Acetaminophen Miscellaneous Test Crossmatch 04/05/19 04/06/19 04/06/19 23:11 00:06 03:14 WBC RBC Hgb Hct MCV MCH MCHC RDW Plt Count Lymph % (Auto) [place] % (Auto) Lymph # Seg Neutrophils % Seg Neuts % (Manual) Lymphocytes % (Manual) Nucleated RBC % Seg Neutrophils # Seg Neutrophils # Man Lymphocytes # (Manual) Monocytes # (Manual) PT INR APTT D-Dimer 4526.86 H POC ABG pH ABG pH POC ABG pCO2 POC ABG pO2 ABG pO2 ABG HCO3 ABG O2 Saturation ABG Base Excess ABG Hemoglobin VBG pH Oxyhemoglobin Sodium Potassium Chloride Carbon Dioxide BUN Creatinine Glucose POC Glucose 205 H 228 H Lactic Acid Calcium Phosphorus Magnesium Iron TIBC Direct Bilirubin AST ALT Alkaline Phosphatase Total Creatine Kinase CK-MB (CK-2) C-Reactive Protein Total Protein Albumin Vitamin B12 Urine WBC (Auto) Salicylates Acetaminophen Miscellaneous Test Crossmatch 04/06/19 04/06/19 04/06/19 05:20 05:20 07:57 WBC 15.1 H RBC 2.90 L Hgb 9.1 L Hct 28.0 L MCV MCH MCHC RDW 17.3 H Plt Count Lymph % (Auto) [place] % (Auto) Lymph # Seg Neutrophils % Seg Neuts % (Manual) Lymphocytes % (Manual) Nucleated RBC % Seg Neutrophils # Seg Neutrophils # Man Lymphocytes # (Manual) Monocytes # (Manual) PT INR APTT D-Dimer POC ABG pH ABG pH POC ABG pCO2 POC ABG pO2 ABG pO2 ABG HCO3 ABG O2 Saturation ABG Base Excess ABG Hemoglobin VBG pH Oxyhemoglobin Sodium Potassium Chloride Carbon Dioxide BUN Creatinine 0.2 L Glucose 161 H POC Glucose 191 H Lactic Acid Calcium 8.0 L Phosphorus Magnesium Iron TIBC Direct Bilirubin AST ALT Alkaline Phosphatase Total Creatine Kinase CK-MB (CK-2) C-Reactive Protein Total Protein Albumin Vitamin B12 Urine WBC (Auto) Salicylates Acetaminophen Miscellaneous Test Crossmatch 04/06/19 04/06/19 04/06/19 12:09 18:24 22:07 WBC RBC Hgb Hct MCV MCH MCHC RDW Plt Count Lymph % (Auto) [place] % (Auto) Lymph # Seg Neutrophils % Seg Neuts % (Manual) Lymphocytes % (Manual) Nucleated RBC % Seg Neutrophils # Seg Neutrophils # Man Lymphocytes # (Manual) Monocytes # (Manual) PT INR APTT D-Dimer POC ABG pH ABG pH POC ABG pCO2 POC ABG pO2 ABG pO2 ABG HCO3 ABG O2 Saturation ABG Base Excess ABG Hemoglobin VBG pH Oxyhemoglobin Sodium Potassium Chloride Carbon Dioxide BUN Creatinine Glucose POC Glucose 143 H 161 H 140 H Lactic Acid Calcium Phosphorus Magnesium Iron TIBC Direct Bilirubin AST ALT Alkaline Phosphatase Total Creatine Kinase CK-MB (CK-2) C-Reactive Protein Total Protein Albumin Vitamin B12 Urine WBC (Auto) Salicylates Acetaminophen Miscellaneous Test Crossmatch 04/07/19 04/07/19 04/07/19 03:00 04:30 04:30 WBC 13.0 H RBC 2.65 L Hgb 8.3 L Hct 25.5 L MCV MCH MCHC RDW 17.0 H Plt Count Lymph % (Auto) [place] % (Auto) Lymph # Seg Neutrophils % Seg Neuts % (Manual) Lymphocytes % (Manual) Nucleated RBC % Seg Neutrophils # Seg Neutrophils # Man Lymphocytes # (Manual) Monocytes # (Manual) PT INR APTT D-Dimer POC ABG pH ABG pH POC ABG pCO2 POC ABG pO2 ABG pO2 ABG HCO3 ABG O2 Saturation ABG Base Excess ABG Hemoglobin VBG pH Oxyhemoglobin Sodium Potassium Chloride Carbon Dioxide BUN Creatinine 0.2 L Glucose 208 H POC Glucose 224 H Lactic Acid Calcium 7.7 L Phosphorus Magnesium Iron TIBC Direct Bilirubin AST ALT Alkaline Phosphatase Total Creatine Kinase CK-MB (CK-2) C-Reactive Protein Total Protein Albumin Vitamin B12 Urine WBC (Auto) Salicylates Acetaminophen Miscellaneous Test Crossmatch 04/07/19 04/07/19 04/07/19 05:47 08:27 10:33 WBC RBC Hgb Hct MCV MCH MCHC RDW Plt Count Lymph % (Auto) [place] % (Auto) Lymph # Seg Neutrophils % Seg Neuts % (Manual) Lymphocytes % (Manual) Nucleated RBC % Seg Neutrophils # Seg Neutrophils # Man Lymphocytes # (Manual) Monocytes # (Manual) PT INR APTT D-Dimer POC ABG pH ABG pH POC ABG pCO2 POC ABG pO2 ABG pO2 ABG HCO3 ABG O2 Saturation ABG Base Excess ABG Hemoglobin VBG pH Oxyhemoglobin Sodium Potassium Chloride Carbon Dioxide BUN Creatinine Glucose POC Glucose 225 H 176 H 207 H Lactic Acid Calcium Phosphorus Magnesium Iron TIBC Direct Bilirubin AST ALT Alkaline Phosphatase Total Creatine Kinase CK-MB (CK-2) C-Reactive Protein Total Protein Albumin Vitamin B12 Urine WBC (Auto) Salicylates Acetaminophen Miscellaneous Test Crossmatch 04/07/19 04/07/19 04/07/19 14:13 18:32 22:42 WBC RBC Hgb Hct MCV MCH MCHC RDW Plt Count Lymph % (Auto) [place] % (Auto) Lymph # Seg Neutrophils % Seg Neuts % (Manual) Lymphocytes % (Manual) Nucleated RBC % Seg Neutrophils # Seg Neutrophils # Man Lymphocytes # (Manual) Monocytes # (Manual) PT INR APTT D-Dimer POC ABG pH ABG pH POC ABG pCO2 POC ABG pO2 ABG pO2 ABG HCO3 ABG O2 Saturation ABG Base Excess ABG Hemoglobin VBG pH Oxyhemoglobin Sodium Potassium Chloride Carbon Dioxide BUN Creatinine Glucose POC Glucose 219 H 227 H 238 H Lactic Acid Calcium Phosphorus Magnesium Iron TIBC Direct Bilirubin AST ALT Alkaline Phosphatase Total Creatine Kinase CK-MB (CK-2) C-Reactive Protein Total Protein Albumin Vitamin B12 Urine WBC (Auto) Salicylates Acetaminophen Miscellaneous Test Crossmatch 04/08/19 04/08/19 04/08/19 02:31 05:37 14:10 WBC RBC Hgb Hct MCV MCH MCHC RDW Plt Count Lymph % (Auto) [place] % (Auto) Lymph # Seg Neutrophils % Seg Neuts % (Manual) Lymphocytes % (Manual) Nucleated RBC % Seg Neutrophils # Seg Neutrophils # Man Lymphocytes # (Manual) Monocytes # (Manual) PT INR APTT D-Dimer POC ABG pH ABG pH POC ABG pCO2 POC ABG pO2 ABG pO2 ABG HCO3 ABG O2 Saturation ABG Base Excess ABG Hemoglobin VBG pH Oxyhemoglobin Sodium Potassium Chloride Carbon Dioxide BUN Creatinine Glucose POC Glucose 194 H 194 H 139 H Lactic Acid Calcium Phosphorus Magnesium Iron TIBC Direct Bilirubin AST ALT Alkaline Phosphatase Total Creatine Kinase CK-MB (CK-2) C-Reactive Protein Total Protein Albumin Vitamin B12 Urine WBC (Auto) Salicylates Acetaminophen Miscellaneous Test Crossmatch 04/08/19 04/08/19 04/09/19 17:43 23:20 03:28 WBC RBC Hgb Hct MCV MCH MCHC RDW Plt Count Lymph % (Auto) [place] % (Auto) Lymph # Seg Neutrophils % Seg Neuts % (Manual) Lymphocytes % (Manual) Nucleated RBC % Seg Neutrophils # Seg Neutrophils # Man Lymphocytes # (Manual) Monocytes # (Manual) PT INR APTT D-Dimer POC ABG pH ABG pH POC ABG pCO2 POC ABG pO2 ABG pO2 ABG HCO3 ABG O2 Saturation ABG Base Excess ABG Hemoglobin VBG pH Oxyhemoglobin Sodium Potassium Chloride Carbon Dioxide BUN Creatinine Glucose POC Glucose 261 H 277 H 301 H Lactic Acid Calcium Phosphorus Magnesium Iron TIBC Direct Bilirubin AST ALT Alkaline Phosphatase Total Creatine Kinase CK-MB (CK-2) C-Reactive Protein Total Protein Albumin Vitamin B12 Urine WBC (Auto) Salicylates Acetaminophen Miscellaneous Test Crossmatch 04/09/19 04/09/19 04/09/19 05:35 05:35 05:35 WBC RBC 2.78 L Hgb 9.0 L Hct 26.7 L MCV MCH MCHC RDW 17.0 H Plt Count Lymph % (Auto) [place] % (Auto) Lymph # Seg Neutrophils % Seg Neuts % (Manual) Lymphocytes % (Manual) Nucleated RBC % Seg Neutrophils # Seg Neutrophils # Man Lymphocytes # (Manual) Monocytes # (Manual) PT INR APTT D-Dimer POC ABG pH ABG pH POC ABG pCO2 POC ABG pO2 ABG pO2 ABG HCO3 ABG O2 Saturation ABG Base Excess ABG Hemoglobin VBG pH Oxyhemoglobin Sodium Potassium Chloride Carbon Dioxide 31 H BUN Creatinine 0.2 L Glucose 218 H POC Glucose 240 H Lactic Acid Calcium Phosphorus Magnesium Iron TIBC Direct Bilirubin AST ALT Alkaline Phosphatase Total Creatine Kinase CK-MB (CK-2) C-Reactive Protein Total Protein Albumin Vitamin B12 Urine WBC (Auto) Salicylates Acetaminophen Miscellaneous Test Crossmatch 04/09/19 04/09/19 04/09/19 09:01 12:23 17:33 WBC RBC Hgb Hct MCV MCH MCHC RDW Plt Count Lymph % (Auto) [place] % (Auto) Lymph # Seg Neutrophils % Seg Neuts % (Manual) Lymphocytes % (Manual) Nucleated RBC % Seg Neutrophils # Seg Neutrophils # Man Lymphocytes # (Manual) Monocytes # (Manual) PT INR APTT D-Dimer POC ABG pH ABG pH POC ABG pCO2 POC ABG pO2 ABG pO2 ABG HCO3 ABG O2 Saturation ABG Base Excess ABG Hemoglobin VBG pH Oxyhemoglobin Sodium Potassium Chloride Carbon Dioxide BUN Creatinine Glucose POC Glucose 160 H 162 H 149 H Lactic Acid Calcium Phosphorus Magnesium Iron TIBC Direct Bilirubin AST ALT Alkaline Phosphatase Total Creatine Kinase CK-MB (CK-2) C-Reactive Protein Total Protein Albumin Vitamin B12 Urine WBC (Auto) Salicylates Acetaminophen Miscellaneous Test Crossmatch 04/09/19 04/09/19 04/10/19 21:26 22:28 03:16 WBC RBC Hgb Hct MCV MCH MCHC RDW Plt Count Lymph % (Auto) [place] % (Auto) Lymph # Seg Neutrophils % Seg Neuts % (Manual) Lymphocytes % (Manual) Nucleated RBC % Seg Neutrophils # Seg Neutrophils # Man Lymphocytes # (Manual) Monocytes # (Manual) PT INR APTT D-Dimer POC ABG pH ABG pH POC ABG pCO2 POC ABG pO2 ABG pO2 ABG HCO3 ABG O2 Saturation ABG Base Excess ABG Hemoglobin VBG pH Oxyhemoglobin Sodium Potassium Chloride Carbon Dioxide BUN Creatinine Glucose POC Glucose 196 H 224 H 163 H Lactic Acid Calcium Phosphorus Magnesium Iron TIBC Direct Bilirubin AST ALT Alkaline Phosphatase Total Creatine Kinase CK-MB (CK-2) C-Reactive Protein Total Protein Albumin Vitamin B12 Urine WBC (Auto) Salicylates Acetaminophen Miscellaneous Test Crossmatch 04/10/19 04/10/19 04/10/19 04:15 04:15 05:30 WBC RBC 2.88 L Hgb 9.2 L Hct 27.9 L MCV MCH MCHC RDW 17.0 H Plt Count 454 H Lymph % (Auto) [place] % (Auto) Lymph # Seg Neutrophils % Seg Neuts % (Manual) Lymphocytes % (Manual) Nucleated RBC % Seg Neutrophils # Seg Neutrophils # Man Lymphocytes # (Manual) Monocytes # (Manual) PT INR APTT D-Dimer POC ABG pH ABG pH POC ABG pCO2 POC ABG pO2 ABG pO2 ABG HCO3 ABG O2 Saturation ABG Base Excess ABG Hemoglobin VBG pH Oxyhemoglobin Sodium Potassium Chloride Carbon Dioxide 32 H BUN Creatinine 0.2 L Glucose 126 H POC Glucose 135 H Lactic Acid Calcium Phosphorus Magnesium Iron TIBC Direct Bilirubin AST ALT Alkaline Phosphatase Total Creatine Kinase CK-MB (CK-2) C-Reactive Protein Total Protein Albumin Vitamin B12 Urine WBC (Auto) Salicylates Acetaminophen Miscellaneous Test Crossmatch 04/10/19 04/10/19 04/10/19 12:14 15:29 23:38 WBC RBC Hgb Hct MCV MCH MCHC RDW Plt Count Lymph % (Auto) [place] % (Auto) Lymph # Seg Neutrophils % Seg Neuts % (Manual) Lymphocytes % (Manual) Nucleated RBC % Seg Neutrophils # Seg Neutrophils # Man Lymphocytes # (Manual) Monocytes # (Manual) PT INR APTT D-Dimer POC ABG pH ABG pH POC ABG pCO2 POC ABG pO2 ABG pO2 ABG HCO3 ABG O2 Saturation ABG Base Excess ABG Hemoglobin VBG pH Oxyhemoglobin Sodium Potassium Chloride Carbon Dioxide BUN Creatinine Glucose POC Glucose 109 H 149 H 268 H Lactic Acid Calcium Phosphorus Magnesium Iron TIBC Direct Bilirubin AST ALT Alkaline Phosphatase Total Creatine Kinase CK-MB (CK-2) C-Reactive Protein Total Protein Albumin Vitamin B12 Urine WBC (Auto) Salicylates Acetaminophen Miscellaneous Test Crossmatch 04/11/19 04/11/19 04/11/19 05:27 12:08 18:08 WBC RBC Hgb Hct MCV MCH MCHC RDW Plt Count Lymph % (Auto) [place] % (Auto) Lymph # Seg Neutrophils % Seg Neuts % (Manual) Lymphocytes % (Manual) Nucleated RBC % Seg Neutrophils # Seg Neutrophils # Man Lymphocytes # (Manual) Monocytes # (Manual) PT INR APTT D-Dimer POC ABG pH ABG pH POC ABG pCO2 POC ABG pO2 ABG pO2 ABG HCO3 ABG O2 Saturation ABG Base Excess ABG Hemoglobin VBG pH Oxyhemoglobin Sodium Potassium Chloride Carbon Dioxide BUN Creatinine Glucose POC Glucose 109 H 185 H 190 H Lactic Acid Calcium Phosphorus Magnesium Iron TIBC Direct Bilirubin AST ALT Alkaline Phosphatase Total Creatine Kinase CK-MB (CK-2) C-Reactive Protein Total Protein Albumin Vitamin B12 Urine WBC (Auto) Salicylates Acetaminophen Miscellaneous Test Crossmatch 04/11/19 04/12/19 04/12/19 23:23 06:00 11:42 WBC RBC Hgb Hct MCV MCH MCHC RDW Plt Count Lymph % (Auto) [place] % (Auto) Lymph # Seg Neutrophils % Seg Neuts % (Manual) Lymphocytes % (Manual) Nucleated RBC % Seg Neutrophils # Seg Neutrophils # Man Lymphocytes # (Manual) Monocytes # (Manual) PT INR APTT D-Dimer POC ABG pH ABG pH POC ABG pCO2 POC ABG pO2 ABG pO2 ABG HCO3 ABG O2 Saturation ABG Base Excess ABG Hemoglobin VBG pH Oxyhemoglobin Sodium Potassium Chloride Carbon Dioxide BUN Creatinine Glucose POC Glucose 127 H 201 H 161 H Lactic Acid Calcium Phosphorus Magnesium Iron TIBC Direct Bilirubin AST ALT Alkaline Phosphatase Total Creatine Kinase CK-MB (CK-2) C-Reactive Protein Total Protein Albumin Vitamin B12 Urine WBC (Auto) Salicylates Acetaminophen Miscellaneous Test Crossmatch 04/12/19 04/12/19 04/12/19 17:56 20:07 21:59 WBC RBC Hgb Hct MCV MCH MCHC RDW Plt Count Lymph % (Auto) [place] % (Auto) Lymph # Seg Neutrophils % Seg Neuts % (Manual) Lymphocytes % (Manual) Nucleated RBC % Seg Neutrophils # Seg Neutrophils # Man Lymphocytes # (Manual) Monocytes # (Manual) PT INR APTT D-Dimer POC ABG pH ABG pH POC ABG pCO2 POC ABG pO2 ABG pO2 ABG HCO3 ABG O2 Saturation ABG Base Excess ABG Hemoglobin VBG pH Oxyhemoglobin Sodium Potassium Chloride Carbon Dioxide BUN Creatinine Glucose POC Glucose 145 H 158 H 203 H Lactic Acid Calcium Phosphorus Magnesium Iron TIBC Direct Bilirubin AST ALT Alkaline Phosphatase Total Creatine Kinase CK-MB (CK-2) C-Reactive Protein Total Protein Albumin Vitamin B12 Urine WBC (Auto) Salicylates Acetaminophen Miscellaneous Test Crossmatch 04/12/19 04/13/19 04/13/19 23:37 08:50 08:50 WBC 15.7 H RBC 3.12 L Hgb Hct 30.2 L MCV MCH 33 H MCHC RDW 18.0 H Plt Count 678 H Lymph % (Auto) [place] % (Auto) Lymph # Seg Neutrophils % Seg Neuts % (Manual) Lymphocytes % (Manual) Nucleated RBC % Seg Neutrophils # Seg Neutrophils # Man Lymphocytes # (Manual) Monocytes # (Manual) PT INR APTT D-Dimer POC ABG pH ABG pH POC ABG pCO2 POC ABG pO2 ABG pO2 ABG HCO3 ABG O2 Saturation ABG Base Excess ABG Hemoglobin VBG pH Oxyhemoglobin Sodium Potassium Chloride Carbon Dioxide BUN Creatinine < 0.2 L Glucose 46 L POC Glucose 238 H Lactic Acid Calcium Phosphorus Magnesium Iron TIBC Direct Bilirubin AST ALT Alkaline Phosphatase Total Creatine Kinase CK-MB (CK-2) C-Reactive Protein Total Protein Albumin Vitamin B12 Urine WBC (Auto) Salicylates Acetaminophen Miscellaneous Test Crossmatch 04/13/19 04/13/19 04/13/19 11:56 17:27 23:57 WBC RBC Hgb Hct MCV MCH MCHC RDW Plt Count Lymph % (Auto) [place] % (Auto) Lymph # Seg Neutrophils % Seg Neuts % (Manual) Lymphocytes % (Manual) Nucleated RBC % Seg Neutrophils # Seg Neutrophils # Man Lymphocytes # (Manual) Monocytes # (Manual) PT INR APTT D-Dimer POC ABG pH ABG pH POC ABG pCO2 POC ABG pO2 ABG pO2 ABG HCO3 ABG O2 Saturation ABG Base Excess ABG Hemoglobin VBG pH Oxyhemoglobin Sodium Potassium Chloride Carbon Dioxide BUN Creatinine Glucose POC Glucose 40 L 66 L 65 L Lactic Acid Calcium Phosphorus Magnesium Iron TIBC Direct Bilirubin AST ALT Alkaline Phosphatase Total Creatine Kinase CK-MB (CK-2) C-Reactive Protein Total Protein Albumin Vitamin B12 Urine WBC (Auto) Salicylates Acetaminophen Miscellaneous Test Crossmatch 04/14/19 04/14/19 04/14/19 05:28 08:20 08:20 WBC 17.8 H RBC 3.26 L Hgb Hct MCV 98 H MCH MCHC RDW 18.3 H Plt Count 622 H Lymph % (Auto) [place] % (Auto) Lymph # Seg Neutrophils % Seg Neuts % (Manual) Lymphocytes % (Manual) Nucleated RBC % Seg Neutrophils # Seg Neutrophils # Man Lymphocytes # (Manual) Monocytes # (Manual) PT INR APTT D-Dimer POC ABG pH ABG pH POC ABG pCO2 POC ABG pO2 ABG pO2 ABG HCO3 ABG O2 Saturation ABG Base Excess ABG Hemoglobin VBG pH Oxyhemoglobin Sodium Potassium Chloride Carbon Dioxide BUN 6 L Creatinine < 0.2 L Glucose 154 H POC Glucose 149 H Lactic Acid Calcium Phosphorus Magnesium Iron TIBC Direct Bilirubin AST ALT Alkaline Phosphatase Total Creatine Kinase CK-MB (CK-2) C-Reactive Protein Total Protein Albumin Vitamin B12 Urine WBC (Auto) Salicylates Acetaminophen Miscellaneous Test Crossmatch 04/14/19 04/14/19 04/14/19 12:16 17:54 23:35 WBC RBC Hgb Hct MCV MCH MCHC RDW Plt Count Lymph % (Auto) [place] % (Auto) Lymph # Seg Neutrophils % Seg Neuts % (Manual) Lymphocytes % (Manual) Nucleated RBC % Seg Neutrophils # Seg Neutrophils # Man Lymphocytes # (Manual) Monocytes # (Manual) PT INR APTT D-Dimer POC ABG pH ABG pH POC ABG pCO2 POC ABG pO2 ABG pO2 ABG HCO3 ABG O2 Saturation ABG Base Excess ABG Hemoglobin VBG pH Oxyhemoglobin Sodium Potassium Chloride Carbon Dioxide BUN Creatinine Glucose POC Glucose 176 H 224 H 173 H Lactic Acid Calcium Phosphorus Magnesium Iron TIBC Direct Bilirubin AST ALT Alkaline Phosphatase Total Creatine Kinase CK-MB (CK-2) C-Reactive Protein Total Protein Albumin Vitamin B12 Urine WBC (Auto) Salicylates Acetaminophen Miscellaneous Test Crossmatch 04/15/19 04/15/19 04/15/19 05:44 12:44 18:06 WBC RBC Hgb Hct MCV MCH MCHC RDW Plt Count Lymph % (Auto) [place] % (Auto) Lymph # Seg Neutrophils % Seg Neuts % (Manual) Lymphocytes % (Manual) Nucleated RBC % Seg Neutrophils # Seg Neutrophils # Man Lymphocytes # (Manual) Monocytes # (Manual) PT INR APTT D-Dimer POC ABG pH 7.461 H ABG pH POC ABG pCO2 45.5 H POC ABG pO2 ABG pO2 ABG HCO3 ABG O2 Saturation ABG Base Excess ABG Hemoglobin VBG pH Oxyhemoglobin Sodium Potassium Chloride Carbon Dioxide BUN Creatinine Glucose POC Glucose 255 H 365 H Lactic Acid Calcium Phosphorus Magnesium Iron TIBC Direct Bilirubin AST ALT Alkaline Phosphatase Total Creatine Kinase CK-MB (CK-2) C-Reactive Protein Total Protein Albumin Vitamin B12 Urine WBC (Auto) Salicylates Acetaminophen Miscellaneous Test Crossmatch 04/15/19 04/15/19 04/16/19 18:06 23:34 00:40 WBC RBC Hgb Hct MCV MCH MCHC RDW Plt Count Lymph % (Auto) [place] % (Auto) Lymph # Seg Neutrophils % Seg Neuts % (Manual) Lymphocytes % (Manual) Nucleated RBC % Seg Neutrophils # Seg Neutrophils # Man Lymphocytes # (Manual) Monocytes # (Manual) PT INR APTT D-Dimer POC ABG pH ABG pH POC ABG pCO2 POC ABG pO2 ABG pO2 ABG HCO3 ABG O2 Saturation ABG Base Excess ABG Hemoglobin VBG pH Oxyhemoglobin Sodium Potassium Chloride Carbon Dioxide BUN Creatinine Glucose POC Glucose 157 H 56 L 107 H Lactic Acid Calcium Phosphorus Magnesium Iron TIBC Direct Bilirubin AST ALT Alkaline Phosphatase Total Creatine Kinase CK-MB (CK-2) C-Reactive Protein Total Protein Albumin Vitamin B12 Urine WBC (Auto) Salicylates Acetaminophen Miscellaneous Test Crossmatch 04/16/19 04/16/19 04/16/19 09:06 09:06 11:21 WBC 12.9 H RBC 2.95 L Hgb 9.7 L Hct 28.9 L MCV 98 H MCH 33 H MCHC RDW 17.7 H Plt Count 581 H Lymph % (Auto) [place] % (Auto) Lymph # Seg Neutrophils % Seg Neuts % (Manual) Lymphocytes % (Manual) Nucleated RBC % Seg Neutrophils # Seg Neutrophils # Man Lymphocytes # (Manual) Monocytes # (Manual) PT INR APTT D-Dimer POC ABG pH ABG pH POC ABG pCO2 POC ABG pO2 ABG pO2 ABG HCO3 ABG O2 Saturation ABG Base Excess ABG Hemoglobin VBG pH Oxyhemoglobin Sodium Potassium Chloride Carbon Dioxide 31 H BUN Creatinine 0.2 L Glucose 155 H POC Glucose 184 H Lactic Acid Calcium Phosphorus Magnesium Iron TIBC Direct Bilirubin AST ALT Alkaline Phosphatase Total Creatine Kinase CK-MB (CK-2) C-Reactive Protein Total Protein Albumin Vitamin B12 Urine WBC (Auto) Salicylates Acetaminophen Miscellaneous Test Crossmatch 04/16/19 04/16/19 04/16/19 17:28 20:17 23:09 WBC RBC Hgb Hct MCV MCH MCHC RDW Plt Count Lymph % (Auto) [place] % (Auto) Lymph # Seg Neutrophils % Seg Neuts % (Manual) Lymphocytes % (Manual) Nucleated RBC % Seg Neutrophils # Seg Neutrophils # Man Lymphocytes # (Manual) Monocytes # (Manual) PT INR APTT D-Dimer POC ABG pH 7.479 H ABG pH POC ABG pCO2 POC ABG pO2 71 L ABG pO2 ABG HCO3 ABG O2 Saturation ABG Base Excess ABG Hemoglobin VBG pH Oxyhemoglobin Sodium Potassium Chloride Carbon Dioxide BUN Creatinine Glucose POC Glucose 173 H 178 H Lactic Acid Calcium Phosphorus Magnesium Iron TIBC Direct Bilirubin AST ALT Alkaline Phosphatase Total Creatine Kinase CK-MB (CK-2) C-Reactive Protein Total Protein Albumin Vitamin B12 Urine WBC (Auto) Salicylates Acetaminophen Miscellaneous Test Crossmatch 04/17/19 04/17/1919 05:02 11:39 12:48 WBC RBC Hgb Hct MCV MCH MCHC RDW Plt Count Lymph % (Auto) [place] % (Auto) Lymph # Seg Neutrophils % Seg Neuts % (Manual) Lymphocytes % (Manual) Nucleated RBC % Seg Neutrophils # Seg Neutrophils # Man Lymphocytes # (Manual) Monocytes # (Manual) PT INR APTT D-Dimer POC ABG pH 7.557 H ABG pH POC ABG pCO2 32.8 L POC ABG pO2 149 H ABG pO2 ABG HCO3 ABG O2 Saturation ABG Base Excess ABG Hemoglobin VBG pH Oxyhemoglobin Sodium Potassium Chloride Carbon Dioxide BUN Creatinine Glucose POC Glucose 252 H 124 H Lactic Acid Calcium Phosphorus Magnesium Iron TIBC Direct Bilirubin AST ALT Alkaline Phosphatase Total Creatine Kinase CK-MB (CK-2) C-Reactive Protein Total Protein Albumin Vitamin B12 Urine WBC (Auto) Salicylates Acetaminophen Miscellaneous Test Crossmatch 04/17/19 04/18/19 04/18/19 23:31 05:32 11:34 WBC RBC Hgb Hct MCV MCH MCHC RDW Plt Count Lymph % (Auto) [place] % (Auto) Lymph # Seg Neutrophils % Seg Neuts % (Manual) Lymphocytes % (Manual) Nucleated RBC % Seg Neutrophils # Seg Neutrophils # Man Lymphocytes # (Manual) Monocytes # (Manual) PT INR APTT D-Dimer POC ABG pH ABG pH POC ABG pCO2 POC ABG pO2 ABG pO2 ABG HCO3 ABG O2 Saturation ABG Base Excess ABG Hemoglobin VBG pH Oxyhemoglobin Sodium Potassium Chloride Carbon Dioxide BUN Creatinine Glucose POC Glucose 149 H 334 H 344 H Lactic Acid Calcium Phosphorus Magnesium Iron TIBC Direct Bilirubin AST ALT Alkaline Phosphatase Total Creatine Kinase CK-MB (CK-2) C-Reactive Protein Total Protein Albumin Vitamin B12 Urine WBC (Auto) Salicylates Acetaminophen Miscellaneous Test Crossmatch 04/18/19 04/18/19 04/18/19 17:43 18:14 23:35 WBC RBC Hgb Hct MCV MCH MCHC RDW Plt Count Lymph % (Auto) [place] % (Auto) Lymph # Seg Neutrophils % Seg Neuts % (Manual) Lymphocytes % (Manual) Nucleated RBC % Seg Neutrophils # Seg Neutrophils # Man Lymphocytes # (Manual) Monocytes # (Manual) PT INR APTT D-Dimer POC ABG pH ABG pH POC ABG pCO2 49.2 H POC ABG pO2 ABG pO2 ABG HCO3 ABG O2 Saturation ABG Base Excess ABG Hemoglobin VBG pH Oxyhemoglobin Sodium Potassium Chloride Carbon Dioxide BUN Creatinine Glucose POC Glucose 289 H 312 H Lactic Acid Calcium Phosphorus Magnesium Iron TIBC Direct Bilirubin AST ALT Alkaline Phosphatase Total Creatine Kinase CK-MB (CK-2) C-Reactive Protein Total Protein Albumin Vitamin B12 Urine WBC (Auto) Salicylates Acetaminophen Miscellaneous Test Crossmatch 04/19/19 04/19/19 04/19/19 04:35 05:55 12:26 WBC RBC Hgb Hct MCV MCH MCHC RDW Plt Count Lymph % (Auto) [place] % (Auto) Lymph # Seg Neutrophils % Seg Neuts % (Manual) Lymphocytes % (Manual) Nucleated RBC % Seg Neutrophils # Seg Neutrophils # Man Lymphocytes # (Manual) Monocytes # (Manual) PT INR APTT D-Dimer POC ABG pH 7.565 H ABG pH POC ABG pCO2 POC ABG pO2 ABG pO2 ABG HCO3 ABG O2 Saturation ABG Base Excess ABG Hemoglobin VBG pH Oxyhemoglobin Sodium Potassium Chloride Carbon Dioxide BUN Creatinine Glucose POC Glucose 172 H 271 H Lactic Acid Calcium Phosphorus Magnesium Iron TIBC Direct Bilirubin AST ALT Alkaline Phosphatase Total Creatine Kinase CK-MB (CK-2) C-Reactive Protein Total Protein Albumin Vitamin B12 Urine WBC (Auto) Salicylates Acetaminophen Miscellaneous Test Crossmatch 04/19/19 04/19/19 04/19/19 17:54 21:10 23:35 WBC RBC Hgb Hct MCV MCH MCHC RDW Plt Count Lymph % (Auto) [place] % (Auto) Lymph # Seg Neutrophils % Seg Neuts % (Manual) Lymphocytes % (Manual) Nucleated RBC % Seg Neutrophils # Seg Neutrophils # Man Lymphocytes # (Manual) Monocytes # (Manual) PT INR APTT D-Dimer POC ABG pH ABG pH POC ABG pCO2 POC ABG pO2 ABG pO2 ABG HCO3 ABG O2 Saturation ABG Base Excess ABG Hemoglobin VBG pH Oxyhemoglobin Sodium Potassium Chloride Carbon Dioxide BUN Creatinine Glucose POC Glucose 229 H 189 H 131 H Lactic Acid Calcium Phosphorus Magnesium Iron TIBC Direct Bilirubin AST ALT Alkaline Phosphatase Total Creatine Kinase CK-MB (CK-2) C-Reactive Protein Total Protein Albumin Vitamin B12 Urine WBC (Auto) Salicylates Acetaminophen Miscellaneous Test Crossmatch 04/20/19 04/20/19 04/20/19 05:42 11:58 17:32 WBC RBC Hgb Hct MCV MCH MCHC RDW Plt Count Lymph % (Auto) [place] % (Auto) Lymph # Seg Neutrophils % Seg Neuts % (Manual) Lymphocytes % (Manual) Nucleated RBC % Seg Neutrophils # Seg Neutrophils # Man Lymphocytes # (Manual) Monocytes # (Manual) PT INR APTT D-Dimer POC ABG pH ABG pH POC ABG pCO2 POC ABG pO2 ABG pO2 ABG HCO3 ABG O2 Saturation ABG Base Excess ABG Hemoglobin VBG pH Oxyhemoglobin Sodium Potassium Chloride Carbon Dioxide BUN Creatinine Glucose POC Glucose 289 H 265 H 232 H Lactic Acid Calcium Phosphorus Magnesium Iron TIBC Direct Bilirubin AST ALT Alkaline Phosphatase Total Creatine Kinase CK-MB (CK-2) C-Reactive Protein Total Protein Albumin Vitamin B12 Urine WBC (Auto) Salicylates Acetaminophen Miscellaneous Test Crossmatch 04/21/19 04/21/19 04/21/19 00:02 05:13 12:41 WBC RBC Hgb Hct MCV MCH MCHC RDW Plt Count Lymph % (Auto) [place] % (Auto) Lymph # Seg Neutrophils % Seg Neuts % (Manual) Lymphocytes % (Manual) Nucleated RBC % Seg Neutrophils # Seg Neutrophils # Man Lymphocytes # (Manual) Monocytes # (Manual) PT INR APTT D-Dimer POC ABG pH ABG pH POC ABG pCO2 POC ABG pO2 ABG pO2 ABG HCO3 ABG O2 Saturation ABG Base Excess ABG Hemoglobin VBG pH Oxyhemoglobin Sodium Potassium Chloride Carbon Dioxide BUN Creatinine Glucose POC Glucose 126 H 233 H 205 H Lactic Acid Calcium Phosphorus Magnesium Iron TIBC Direct Bilirubin AST ALT Alkaline Phosphatase Total Creatine Kinase CK-MB (CK-2) C-Reactive Protein Total Protein Albumin Vitamin B12 Urine WBC (Auto) Salicylates Acetaminophen Miscellaneous Test Crossmatch 04/21/19 04/22/19 04/22/19 23:42 03:57 03:57 WBC 11.5 H RBC 3.44 L Hgb Hct MCV MCH MCHC RDW 16.3 H Plt Count 510 H Lymph % (Auto) [place] % (Auto) Lymph # Seg Neutrophils % Seg Neuts % (Manual) Lymphocytes % (Manual) Nucleated RBC % Seg Neutrophils # Seg Neutrophils # Man Lymphocytes # (Manual) Monocytes # (Manual) PT INR APTT D-Dimer POC ABG pH ABG pH POC ABG pCO2 POC ABG pO2 ABG pO2 ABG HCO3 ABG O2 Saturation ABG Base Excess ABG Hemoglobin VBG pH Oxyhemoglobin Sodium Potassium Chloride 96.3 L Carbon Dioxide BUN Creatinine 0.2 L Glucose 333 H POC Glucose 149 H Lactic Acid Calcium Phosphorus Magnesium Iron TIBC Direct Bilirubin AST 60 H ALT Alkaline Phosphatase 204 H Total Creatine Kinase CK-MB (CK-2) C-Reactive Protein Total Protein Albumin 3.1 L Vitamin B12 Urine WBC (Auto) Salicylates Acetaminophen Miscellaneous Test Crossmatch 04/22/19 04/22/19 04/22/19 05:18 12:03 18:17 WBC RBC Hgb Hct MCV MCH MCHC RDW Plt Count Lymph % (Auto) [place] % (Auto) Lymph # Seg Neutrophils % Seg Neuts % (Manual) Lymphocytes % (Manual) Nucleated RBC % Seg Neutrophils # Seg Neutrophils # Man Lymphocytes # (Manual) Monocytes # (Manual) PT INR APTT D-Dimer POC ABG pH ABG pH POC ABG pCO2 POC ABG pO2 ABG pO2 ABG HCO3 ABG O2 Saturation ABG Base Excess ABG Hemoglobin VBG pH Oxyhemoglobin Sodium Potassium Chloride Carbon Dioxide BUN Creatinine Glucose POC Glucose 345 H 308 H 169 H Lactic Acid Calcium Phosphorus Magnesium Iron TIBC Direct Bilirubin AST ALT Alkaline Phosphatase Total Creatine Kinase CK-MB (CK-2) C-Reactive Protein Total Protein Albumin Vitamin B12 Urine WBC (Auto) Salicylates Acetaminophen Miscellaneous Test Crossmatch 04/23/19 04/23/19 04/23/19 00:14 05:43 11:15 WBC RBC Hgb Hct MCV MCH MCHC RDW Plt Count Lymph % (Auto) [place] % (Auto) Lymph # Seg Neutrophils % Seg Neuts % (Manual) Lymphocytes % (Manual) Nucleated RBC % Seg Neutrophils # Seg Neutrophils # Man Lymphocytes # (Manual) Monocytes # (Manual) PT INR APTT D-Dimer POC ABG pH ABG pH POC ABG pCO2 POC ABG pO2 ABG pO2 ABG HCO3 ABG O2 Saturation ABG Base Excess ABG Hemoglobin VBG pH Oxyhemoglobin Sodium Potassium Chloride Carbon Dioxide BUN Creatinine Glucose POC Glucose 192 H 260 H 186 H Lactic Acid Calcium Phosphorus Magnesium Iron TIBC Direct Bilirubin AST ALT Alkaline Phosphatase Total Creatine Kinase CK-MB (CK-2) C-Reactive Protein Total Protein Albumin Vitamin B12 Urine WBC (Auto) Salicylates Acetaminophen Miscellaneous Test Crossmatch 04/23/19 04/23/19 04/24/19 15:44 21:30 00:09 WBC RBC Hgb Hct MCV MCH MCHC RDW Plt Count Lymph % (Auto) [place] % (Auto) Lymph # Seg Neutrophils % Seg Neuts % (Manual) Lymphocytes % (Manual) Nucleated RBC % Seg Neutrophils # Seg Neutrophils # Man Lymphocytes # (Manual) Monocytes # (Manual) PT INR APTT D-Dimer POC ABG pH ABG pH POC ABG pCO2 POC ABG pO2 ABG pO2 ABG HCO3 ABG O2 Saturation ABG Base Excess ABG Hemoglobin VBG pH Oxyhemoglobin Sodium Potassium Chloride Carbon Dioxide BUN Creatinine Glucose POC Glucose 164 H 407 H 280 H Lactic Acid Calcium Phosphorus Magnesium Iron TIBC Direct Bilirubin AST ALT Alkaline Phosphatase Total Creatine Kinase CK-MB (CK-2) C-Reactive Protein Total Protein Albumin Vitamin B12 Urine WBC (Auto) Salicylates Acetaminophen Miscellaneous Test Crossmatch 04/24/19 04/24/19 04/24/19 06:01 06:39 14:51 WBC RBC Hgb Hct MCV MCH MCHC RDW Plt Count Lymph % (Auto) [place] % (Auto) Lymph # Seg Neutrophils % Seg Neuts % (Manual) Lymphocytes % (Manual) Nucleated RBC % Seg Neutrophils # Seg Neutrophils # Man Lymphocytes # (Manual) Monocytes # (Manual) PT INR APTT D-Dimer POC ABG pH ABG pH POC ABG pCO2 POC ABG pO2 ABG pO2 ABG HCO3 ABG O2 Saturation ABG Base Excess ABG Hemoglobin VBG pH Oxyhemoglobin Sodium Potassium Chloride Carbon Dioxide BUN Creatinine Glucose POC Glucose 65 L 125 H 207 H Lactic Acid Calcium Phosphorus Magnesium Iron TIBC Direct Bilirubin AST ALT Alkaline Phosphatase Total Creatine Kinase CK-MB (CK-2) C-Reactive Protein Total Protein Albumin Vitamin B12 Urine WBC (Auto) Salicylates Acetaminophen Miscellaneous Test Crossmatch 04/24/19 04/25/19 04/25/19 18:03 01:46 05:56 WBC RBC Hgb Hct MCV MCH MCHC RDW Plt Count Lymph % (Auto) [place] % (Auto) Lymph # Seg Neutrophils % Seg Neuts % (Manual) Lymphocytes % (Manual) Nucleated RBC % Seg Neutrophils # Seg Neutrophils # Man Lymphocytes # (Manual) Monocytes # (Manual) PT INR APTT D-Dimer POC ABG pH ABG pH POC ABG pCO2 POC ABG pO2 ABG pO2 ABG HCO3 ABG O2 Saturation ABG Base Excess ABG Hemoglobin VBG pH Oxyhemoglobin Sodium Potassium Chloride Carbon Dioxide BUN Creatinine Glucose POC Glucose 140 H 125 H 208 H Lactic Acid Calcium Phosphorus Magnesium Iron TIBC Direct Bilirubin AST ALT Alkaline Phosphatase Total Creatine Kinase CK-MB (CK-2) C-Reactive Protein Total Protein Albumin Vitamin B12 Urine WBC (Auto) Salicylates Acetaminophen Miscellaneous Test Crossmatch 04/25/19 04/25/19 04/25/19 08:12 13:06 18:04 WBC RBC Hgb Hct MCV MCH MCHC RDW Plt Count Lymph % (Auto) [place] % (Auto) Lymph # Seg Neutrophils % Seg Neuts % (Manual) Lymphocytes % (Manual) Nucleated RBC % Seg Neutrophils # Seg Neutrophils # Man Lymphocytes # (Manual) Monocytes # (Manual) PT INR APTT D-Dimer POC ABG pH ABG pH POC ABG pCO2 POC ABG pO2 ABG pO2 ABG HCO3 ABG O2 Saturation ABG Base Excess ABG Hemoglobin VBG pH Oxyhemoglobin Sodium Potassium Chloride Carbon Dioxide BUN Creatinine Glucose POC Glucose 127 H 147 H 340 H Lactic Acid Calcium Phosphorus Magnesium Iron TIBC Direct Bilirubin AST ALT Alkaline Phosphatase Total Creatine Kinase CK-MB (CK-2) C-Reactive Protein Total Protein Albumin Vitamin B12 Urine WBC (Auto) Salicylates Acetaminophen Miscellaneous Test Crossmatch 04/26/19 04/26/19 04/26/19 00:16 05:15 11:26 WBC RBC Hgb Hct MCV MCH MCHC RDW Plt Count Lymph % (Auto) [place] % (Auto) Lymph # Seg Neutrophils % Seg Neuts % (Manual) Lymphocytes % (Manual) Nucleated RBC % Seg Neutrophils # Seg Neutrophils # Man Lymphocytes # (Manual) Monocytes # (Manual) PT INR APTT D-Dimer POC ABG pH ABG pH POC ABG pCO2 POC ABG pO2 ABG pO2 ABG HCO3 ABG O2 Saturation ABG Base Excess ABG Hemoglobin VBG pH Oxyhemoglobin Sodium Potassium Chloride Carbon Dioxide BUN Creatinine Glucose POC Glucose 137 H 136 H 365 H Lactic Acid Calcium Phosphorus Magnesium Iron TIBC Direct Bilirubin AST ALT Alkaline Phosphatase Total Creatine Kinase CK-MB (CK-2) C-Reactive Protein Total Protein Albumin Vitamin B12 Urine WBC (Auto) Salicylates Acetaminophen Miscellaneous Test Crossmatch 04/26/19 04/26/19 04/27/19 18:03 21:30 06:14 WBC RBC Hgb Hct MCV MCH MCHC RDW Plt Count Lymph % (Auto) [place] % (Auto) Lymph # Seg Neutrophils % Seg Neuts % (Manual) Lymphocytes % (Manual) Nucleated RBC % Seg Neutrophils # Seg Neutrophils # Man Lymphocytes # (Manual) Monocytes # (Manual) PT INR APTT D-Dimer POC ABG pH ABG pH POC ABG pCO2 POC ABG pO2 ABG pO2 ABG HCO3 ABG O2 Saturation ABG Base Excess ABG Hemoglobin VBG pH Oxyhemoglobin Sodium Potassium Chloride Carbon Dioxide BUN Creatinine Glucose POC Glucose 124 H 231 H 199 H Lactic Acid Calcium Phosphorus Magnesium Iron TIBC Direct Bilirubin AST ALT Alkaline Phosphatase Total Creatine Kinase CK-MB (CK-2) C-Reactive Protein Total Protein Albumin Vitamin B12 Urine WBC (Auto) Salicylates Acetaminophen Miscellaneous Test Crossmatch 04/27/19 04/27/19 04/28/19 16:39 22:22 05:55 WBC RBC Hgb Hct MCV MCH MCHC RDW Plt Count Lymph % (Auto) [place] % (Auto) Lymph # Seg Neutrophils % Seg Neuts % (Manual) Lymphocytes % (Manual) Nucleated RBC % Seg Neutrophils # Seg Neutrophils # Man Lymphocytes # (Manual) Monocytes # (Manual) PT INR APTT D-Dimer POC ABG pH ABG pH POC ABG pCO2 POC ABG pO2 ABG pO2 ABG HCO3 ABG O2 Saturation ABG Base Excess ABG Hemoglobin VBG pH Oxyhemoglobin Sodium Potassium Chloride Carbon Dioxide BUN Creatinine Glucose POC Glucose 171 H 183 H 207 H Lactic Acid Calcium Phosphorus Magnesium Iron TIBC Direct Bilirubin AST ALT Alkaline Phosphatase Total Creatine Kinase CK-MB (CK-2) C-Reactive Protein Total Protein Albumin Vitamin B12 Urine WBC (Auto) Salicylates Acetaminophen Miscellaneous Test Crossmatch 04/28/19 04/28/19 04/29/19 12:30 17:07 00:03 WBC RBC Hgb Hct MCV MCH MCHC RDW Plt Count Lymph % (Auto) [place] % (Auto) Lymph # Seg Neutrophils % Seg Neuts % (Manual) Lymphocytes % (Manual) Nucleated RBC % Seg Neutrophils # Seg Neutrophils # Man Lymphocytes # (Manual) Monocytes # (Manual) PT INR APTT D-Dimer POC ABG pH ABG pH POC ABG pCO2 POC ABG pO2 ABG pO2 ABG HCO3 ABG O2 Saturation ABG Base Excess ABG Hemoglobin VBG pH Oxyhemoglobin Sodium Potassium Chloride Carbon Dioxide BUN Creatinine Glucose POC Glucose 199 H 233 H 217 H Lactic Acid Calcium Phosphorus Magnesium Iron TIBC Direct Bilirubin AST ALT Alkaline Phosphatase Total Creatine Kinase CK-MB (CK-2) C-Reactive Protein Total Protein Albumin Vitamin B12 Urine WBC (Auto) Salicylates Acetaminophen Miscellaneous Test Crossmatch 04/29/19 04/29/19 04/29/19 05:51 09:43 09:43 WBC RBC 3.36 L Hgb Hct MCV MCH MCHC RDW 16.3 H Plt Count Lymph % (Auto) 11.1 L [place] % (Auto) Lymph # Seg Neutrophils % 81.4 H Seg Neuts % (Manual) Lymphocytes % (Manual) Nucleated RBC % Seg Neutrophils # 9.0 H Seg Neutrophils # Man Lymphocytes # (Manual) Monocytes # (Manual) PT INR APTT D-Dimer POC ABG pH ABG pH POC ABG pCO2 POC ABG pO2 ABG pO2 ABG HCO3 ABG O2 Saturation ABG Base Excess ABG Hemoglobin VBG pH Oxyhemoglobin Sodium Potassium Chloride Carbon Dioxide BUN 21 H Creatinine 0.3 L Glucose 316 H POC Glucose 149 H Lactic Acid Calcium Phosphorus Magnesium Iron TIBC Direct Bilirubin AST ALT Alkaline Phosphatase Total Creatine Kinase CK-MB (CK-2) C-Reactive Protein Total Protein Albumin Vitamin B12 Urine WBC (Auto) Salicylates Acetaminophen Miscellaneous Test Crossmatch 04/29/19 04/29/19 04/29/19 12:28 18:02 23:49 WBC RBC Hgb Hct MCV MCH MCHC RDW Plt Count Lymph % (Auto) [place] % (Auto) Lymph # Seg Neutrophils % Seg Neuts % (Manual) Lymphocytes % (Manual) Nucleated RBC % Seg Neutrophils # Seg Neutrophils # Man Lymphocytes # (Manual) Monocytes # (Manual) PT INR APTT D-Dimer POC ABG pH ABG pH POC ABG pCO2 POC ABG pO2 ABG pO2 ABG HCO3 ABG O2 Saturation ABG Base Excess ABG Hemoglobin VBG pH Oxyhemoglobin Sodium Potassium Chloride Carbon Dioxide BUN Creatinine Glucose POC Glucose 368 H 185 H 137 H Lactic Acid Calcium Phosphorus Magnesium Iron TIBC Direct Bilirubin AST ALT Alkaline Phosphatase Total Creatine Kinase CK-MB (CK-2) C-Reactive Protein Total Protein Albumin Vitamin B12 Urine WBC (Auto) Salicylates Acetaminophen Miscellaneous Test Crossmatch 04/30/19 04/30/19 04/30/19 05:56 09:08 09:08 WBC RBC 3.48 L Hgb Hct MCV MCH MCHC RDW 15.9 H Plt Count Lymph % (Auto) [place] % (Auto) Lymph # Seg Neutrophils % 73.7 H Seg Neuts % (Manual) Lymphocytes % (Manual) Nucleated RBC % Seg Neutrophils # Seg Neutrophils # Man Lymphocytes # (Manual) Monocytes # (Manual) PT INR APTT D-Dimer POC ABG pH ABG pH POC ABG pCO2 POC ABG pO2 ABG pO2 ABG HCO3 ABG O2 Saturation ABG Base Excess ABG Hemoglobin VBG pH Oxyhemoglobin Sodium Potassium Chloride Carbon Dioxide BUN 25 H Creatinine 0.3 L Glucose 290 H POC Glucose 318 H Lactic Acid Calcium Phosphorus Magnesium Iron TIBC Direct Bilirubin AST ALT Alkaline Phosphatase Total Creatine Kinase CK-MB (CK-2) C-Reactive Protein Total Protein Albumin Vitamin B12 Urine WBC (Auto) Salicylates Acetaminophen Miscellaneous Test Crossmatch 04/30/19 04/30/19 04/30/19 11:32 17:19 21:36 WBC RBC Hgb Hct MCV MCH MCHC RDW Plt Count Lymph % (Auto) [place] % (Auto) Lymph # Seg Neutrophils % Seg Neuts % (Manual) Lymphocytes % (Manual) Nucleated RBC % Seg Neutrophils # Seg Neutrophils # Man Lymphocytes # (Manual) Monocytes # (Manual) PT INR APTT D-Dimer POC ABG pH ABG pH POC ABG pCO2 POC ABG pO2 ABG pO2 ABG HCO3 ABG O2 Saturation ABG Base Excess ABG Hemoglobin VBG pH Oxyhemoglobin Sodium Potassium Chloride Carbon Dioxide BUN Creatinine Glucose POC Glucose 225 H 110 H 371 H Lactic Acid Calcium Phosphorus Magnesium Iron TIBC Direct Bilirubin AST ALT Alkaline Phosphatase Total Creatine Kinase CK-MB (CK-2) C-Reactive Protein Total Protein Albumin Vitamin B12 Urine WBC (Auto) Salicylates Acetaminophen Miscellaneous Test Crossmatch 04/30/19 05/01/19 05/01/19 Unknown 05:29 11:44 WBC RBC Hgb Hct MCV MCH MCHC RDW Plt Count Lymph % (Auto) [place] % (Auto) Lymph # Seg Neutrophils % Seg Neuts % (Manual) Lymphocytes % (Manual) Nucleated RBC % Seg Neutrophils # Seg Neutrophils # Man Lymphocytes # (Manual) Monocytes # (Manual) PT INR APTT D-Dimer POC ABG pH ABG pH POC ABG pCO2 POC ABG pO2 ABG pO2 ABG HCO3 ABG O2 Saturation ABG Base Excess ABG Hemoglobin VBG pH Oxyhemoglobin Sodium Potassium Chloride Carbon Dioxide BUN Creatinine Glucose POC Glucose 386 H 227 H Lactic Acid Calcium Phosphorus Magnesium Iron TIBC Direct Bilirubin AST ALT Alkaline Phosphatase Total Creatine Kinase CK-MB (CK-2) C-Reactive Protein Total Protein Albumin Vitamin B12 Urine WBC (Auto) 17.0 H Salicylates Acetaminophen Miscellaneous Test Crossmatch 05/02/19 05/02/19 05/03/19 05:51 11:21 00:25 WBC RBC Hgb Hct MCV MCH MCHC RDW Plt Count Lymph % (Auto) [place] % (Auto) Lymph # Seg Neutrophils % Seg Neuts % (Manual) Lymphocytes % (Manual) Nucleated RBC % Seg Neutrophils # Seg Neutrophils # Man Lymphocytes # (Manual) Monocytes # (Manual) PT INR APTT D-Dimer POC ABG pH ABG pH POC ABG pCO2 POC ABG pO2 ABG pO2 ABG HCO3 ABG O2 Saturation ABG Base Excess ABG Hemoglobin VBG pH Oxyhemoglobin Sodium Potassium Chloride Carbon Dioxide BUN Creatinine Glucose POC Glucose 280 H 191 H 262 H Lactic Acid Calcium Phosphorus Magnesium Iron TIBC Direct Bilirubin AST ALT Alkaline Phosphatase Total Creatine Kinase CK-MB (CK-2) C-Reactive Protein Total Protein Albumin Vitamin B12 Urine WBC (Auto) Salicylates Acetaminophen Miscellaneous Test Crossmatch 05/03/19 05/03/19 05/03/19 04:57 04:57 06:20 WBC RBC 3.45 L Hgb Hct MCV MCH MCHC RDW 15.5 H Plt Count Lymph % (Auto) [place] % (Auto) 7.6 H Lymph # Seg Neutrophils % Seg Neuts % (Manual) Lymphocytes % (Manual) Nucleated RBC % Seg Neutrophils # Seg Neutrophils # Man Lymphocytes # (Manual) Monocytes # (Manual) PT INR APTT D-Dimer POC ABG pH ABG pH POC ABG pCO2 POC ABG pO2 ABG pO2 ABG HCO3 ABG O2 Saturation ABG Base Excess ABG Hemoglobin VBG pH Oxyhemoglobin Sodium Potassium Chloride Carbon Dioxide BUN 23 H Creatinine 0.2 L Glucose 101 H POC Glucose 131 H Lactic Acid Calcium Phosphorus Magnesium Iron TIBC Direct Bilirubin AST ALT Alkaline Phosphatase Total Creatine Kinase CK-MB (CK-2) C-Reactive Protein Total Protein Albumin Vitamin B12 Urine WBC (Auto) Salicylates Acetaminophen Miscellaneous Test Crossmatch 05/03/19 05/04/19 05/04/19 23:58 12:05 16:56 WBC RBC Hgb Hct MCV MCH MCHC RDW Plt Count Lymph % (Auto) [place] % (Auto) Lymph # Seg Neutrophils % Seg Neuts % (Manual) Lymphocytes % (Manual) Nucleated RBC % Seg Neutrophils # Seg Neutrophils # Man Lymphocytes # (Manual) Monocytes # (Manual) PT INR APTT D-Dimer POC ABG pH ABG pH POC ABG pCO2 POC ABG pO2 ABG pO2 ABG HCO3 ABG O2 Saturation ABG Base Excess ABG Hemoglobin VBG pH Oxyhemoglobin Sodium Potassium Chloride Carbon Dioxide BUN Creatinine Glucose POC Glucose 160 H 128 H 116 H Lactic Acid Calcium Phosphorus Magnesium Iron TIBC Direct Bilirubin AST ALT Alkaline Phosphatase Total Creatine Kinase CK-MB (CK-2) C-Reactive Protein Total Protein Albumin Vitamin B12 Urine WBC (Auto) Salicylates Acetaminophen Miscellaneous Test Crossmatch 05/04/19 05/05/19 05/05/19 23:31 03:24 11:43 WBC RBC Hgb Hct MCV MCH MCHC RDW Plt Count Lymph % (Auto) [place] % (Auto) Lymph # Seg Neutrophils % Seg Neuts % (Manual) Lymphocytes % (Manual) Nucleated RBC % Seg Neutrophils # Seg Neutrophils # Man Lymphocytes # (Manual) Monocytes # (Manual) PT INR APTT D-Dimer POC ABG pH ABG pH POC ABG pCO2 POC ABG pO2 ABG pO2 ABG HCO3 ABG O2 Saturation ABG Base Excess ABG Hemoglobin VBG pH Oxyhemoglobin Sodium Potassium Chloride Carbon Dioxide BUN Creatinine Glucose POC Glucose 204 H 194 H 202 H Lactic Acid Calcium Phosphorus Magnesium Iron TIBC Direct Bilirubin AST ALT Alkaline Phosphatase Total Creatine Kinase CK-MB (CK-2) C-Reactive Protein Total Protein Albumin Vitamin B12 Urine WBC (Auto) Salicylates Acetaminophen Miscellaneous Test Crossmatch 05/05/19 05/06/19 21:07 05:16 WBC RBC Hgb Hct MCV MCH MCHC RDW Plt Count Lymph % (Auto) [place] % (Auto) Lymph # Seg Neutrophils % Seg Neuts % (Manual) Lymphocytes % (Manual) Nucleated RBC % Seg Neutrophils # Seg Neutrophils # Man Lymphocytes # (Manual) Monocytes # (Manual) PT INR APTT D-Dimer POC ABG pH ABG pH POC ABG pCO2 POC ABG pO2 ABG pO2 ABG HCO3 ABG O2 Saturation ABG Base Excess ABG Hemoglobin VBG pH Oxyhemoglobin Sodium Potassium Chloride Carbon Dioxide BUN Creatinine Glucose POC Glucose 128 H 239 H Lactic Acid Calcium Phosphorus Magnesium Iron TIBC Direct Bilirubin AST ALT Alkaline Phosphatase Total Creatine Kinase CK-MB (CK-2) C-Reactive Protein Total Protein Albumin Vitamin B12 Urine WBC (Auto) Salicylates Acetaminophen Miscellaneous Test Crossmatch Allied health notes reviewed: nursing
[2019-05-06] MEDS ORDERED: LANTUS SUB-Q ONE (22:43)
[2019-05-06] MEDS: LANTUS SUB-Q SCH (22:47)
[2019-05-06] MEDS: SODIUM CHLORIDE FLUSH SYRINGE 10 ML IV PRN (23:34)
[2019-05-07] MEDS: HumaLOG SUB-Q SCH ×4 (05:53→19:18)
[2019-05-07] MEDS: ROBINUL FEEDTUBE SCH ×3 (09:10→22:45)
[2019-05-07] MEDS: KEPPRA PO SCH ×2 (09:47→22:44)
[2019-05-07] MEDS: PEPCID PO SCH ×2 (09:47→22:46)
[2019-05-07] MEDS: ENOXAPARIN SUB-Q SCH (09:47)
[2019-05-07] MEDS: METOPROLOL PO SCH ×2 (09:55→22:50)
[2019-05-07] MEDS ORDERED: LANTUS SUB-Q SCH (13:34)
--- NOTE | 2019-05-07 14:56 | Progress Note ---
Assessment and Plan Uncontrolled DM type 1 with hyperglycemia - cont. basal insulin Lantus - cont. SSI - adjust insulin dose as needed Acute respiratory failure s/p intubated, off vent - s/p trach and peg, on 5 L of oxygen - Tracheostomy re-adjusted on 04/17/19 - Pulm following, on nebs - Aspiration precautions Acute anoxic encephalopathy, POA - from cardiac arrest - MR concerning for anoxic Brain injury Cardiac arrest s/p resuscitation - likely 2/2 severe hyperglycemia - preserved EF on 2D echo Generalized Anasacara, stable now -Given a dose of Bumex s/p severe DKA, resolved - BG was 2200 on admission Shock hypotensive +/- sepsis - resolved Now off pressors. Was on vasopressin, Levophed, Phenylephrine Sepsis with possible aspiration PNA - evident on CXR on admission with left sided infiltrates - Competed abx - Leucocytosis and thrombocytosis are likely reactive from hepatic subcapsular hematoma -liver lesion not consistent with infection per ID UTI, Patient had low-grade temp 04/30/19 -UA suggestive of UTI -Urine culture showed enterococcus faecalis, and hanks sensitive. -Patient started on Rocephin on 05/01/19 - completed Head lice - multiple dosing of Permethin given, resolved Acute renal failure, likely vasomotor nephropathy - resolved Anemia, acute on chronic - no sign of blood loss - s/p 2 Units PRBC transfused Hyperkalemia, resolved with fluid and insulin Hypernatremia Resolved hypokalemia, resolved Shock liver with elevated LFT and Coagulopathy - due to cardiac arrest and hypotension - cont to monitor Liver lesion - ID Physician following - Discontinued abx, not consistent with infection as noted above Hypermagnesemia - monitor levels as needed Hyperphosphatemia -cont to monitor, improved Stage 1 sacral ulcer, poa - upper ext blisters - pressure ulcer prevention strategies - wound care VTE Prophylaxis with Lovenox Poor prognosis DNR status Disposition: continue inpatient care, await placement in [place], [place] [facility] [employer] facilities [employer] manager in contact with the family for Hospice transfer Brief History: Patient is a 29 year old woman with a history of diabetes [place] [facility] [place] cardiac [place]. Her last well-known time was 10:30 in the morning of presentation, she was traveling with a friend, she was unresponsive in the back seat. EMS was called, CPR was started and continued here in the emergency room. Patient was intubated in the ER, noted hypotensive started on dobutamine, epinephrine and Levophed drip, given IV fluids, found to be in DKA with BG ~2200, several metabolic derangements - placed on insulin drip and admitted to ICU. BP improved and she was weaned off pressors. Pt off pressors and extubated. Transferred to floor awaiting placement Subjective Date of service: 05/07/19 Principal diagnosis: Ac Hypoxemic Resp Failure; DKA; Severe sepsis with shock; ANGELICA Interval history: Patient seen and examined Patient remained on trach with t-piece no family members around, nonverbal and doesnot follow commend discussed with RN at bedside with plan of care Objective - Exam Narrative Exam: General appearance: Present: nonverbal, on trach - EENT Eyes: no congestion ENT: clear oral mucosa Ears: bilateral: normal - Neck Neck: no masses or JVD, no carotid bruits - Respiratory Respiratory effort: on trach w/o vent Respiratory: bilateral: CTA - Cardiovascular Rhythm: other (tachycardic) Heart Sounds: Present: S1 & S2. Absent: gallop, rub Extremities: pulses intact, No edema, normal color - Gastrointestinal General gastrointestinal: Present: soft, non-distended, normal bowel sounds - Integumentary Integumentary: clear, warm, dry - Musculoskeletal Musculoskeletal: other (no joint swelling) - Neurologic Neurologic: other (unable to assess), does not follow commend - Psychiatric Psychiatric: other (unable to assess) - Constitutional Vitals: Vital Signs - 12hr 05/07/19 05/07/19 05/07/19 03:55 05:04 09:53 Temperature 97.6 F Pulse Rate 127 H Respiratory 16 22 Rate Blood Pressure 102/67 134/96 O2 Sat by Pulse 96 Oximetry O2 Sat by Pulse 98 Oximetry [ Assessment] 05/07/19 05/07/19 05/07/19 09:55 10:35 12:07 Temperature 99.3 F Pulse Rate 127 H 120 H Respiratory 20 Rate Blood Pressure 134/96 132/98 O2 Sat by Pulse 98 96 Oximetry O2 Sat by Pulse 98 Oximetry [ Assessment] - Labs CBC & Chem 7: 05/03/19 04:57 05/03/19 04:57 Labs: Abnormal lab results 05/06/19 05/07/19 05/07/19 Range/Units 17:08 05:12 08:00 POC Glucose 64 L 315 H 193 H (70-105) 05/07/19 Range/Units 12:13 POC Glucose 129 H (70-105)
[2019-05-08] MEDS: HumaLOG SUB-Q SCH ×4 (01:11→18:57)
[2019-05-08] MEDS: ROBINUL FEEDTUBE SCH ×3 (08:34→21:55)
[2019-05-08] MEDS: ENOXAPARIN SUB-Q SCH (11:13)
[2019-05-08] MEDS: PEPCID PO SCH ×2 (11:13→21:55)
[2019-05-08] MEDS: METOPROLOL PO SCH ×2 (11:16→21:55)
[2019-05-08] MEDS: KEPPRA PO SCH ×2 (11:17→21:55)
--- NOTE | 2019-05-08 13:04 | Progress Note ---
Assessment and Plan Patients condition same.Patient resting on T tube. Patient more awake. Not following the commands. No acute respiratory distress.. Patient is on T tube, FIO2 28%. O2 saturation 94%.Patient having a low grade temp today and has no leukocytosis. Patient waiting for placement. - Patient Problems (1) Cardiac arrest Current Visit: Yes Status: Acute Plan to address problem: Patient resuscitated. Presently resting on T tube. No acute respiratory distress.; (2) Status post tracheostomy Current Visit: Yes Status: Acute Plan to address problem: Respiratory suctioning. Recommend trach care as per respiratory therapy protocol. (3) DKA, type 1 Current Visit: Yes Status: Acute Qualifiers: Diabetes mellitus complication detail: with coma Qualified Code(s): E10.11 - Type 1 diabetes mellitus with ketoacidosis with coma Plan to address problem: Management as per primary care. (4) Hypotension Current Visit: Yes Status: Acute Qualifiers: Hypotension type: unspecified hypotension type Qualified Code(s): I95.9 - Hypotension, unspecified Plan to address problem: Improved. Recent blood pressure 123/91 (5) Renal failure Current Visit: Yes Status: Acute Qualifiers: Renal failure chronicity: acute Acute renal failure type: unspecified Qualified Code(s): N17.9 - Acute kidney failure, unspecified Plan to address problem: Improved. Management as per primary care and nephrology . Subjective Date of service: 05/08/19 Principal diagnosis: Ac Hypoxemic Resp Failure; DKA; Severe sepsis with shock; ANGELICA Interval history: Patients condition same.Patient resting on T tube. Patient more awake. Not following the commands. No acute respiratory distress.. Patient is on T tube, FIO2 28%. O2 saturation 94%.Patient having a low grade temp today and has no leukocytosis. Patient waiting for placement. Objective Vital Signs - 12hr 05/08/19 05/08/19 05/08/19 05:34 08:00 09:05 Temperature 99.6 F Pulse Rate 126 H Blood Pressure 141/98 O2 Sat by Pulse 95 94 Oximetry O2 Sat by Pulse 94 Oximetry [ Assessment] 05/08/19 11:16 Temperature Pulse Rate 127 H Blood Pressure 123/91 O2 Sat by Pulse Oximetry O2 Sat by Pulse Oximetry [ Assessment] Constitutional: no acute distress, other (Patient awake. Not following commands.) Eyes: non-icteric ENT: oropharynx moist Neck: supple, no lymphadenopathy, no JVD, other (midline trach tube) Effort: normal Ascultation: Bilateral: diminished breath sounds, rhonchi Percussion: Bilateral: not dull Cardiovascular: regular rate and rhythm, other (S1,S2) Gastrointestinal: normoactive bowel sounds, soft, non-tender, non-distended, other (PEG tube) Integumentary: normal Extremities: no cyanosis, no edema, pink and warm, pulses normal, no ischemia or petechiae Neurologic: unable to assess (awake, alert, not obeying commands) Psychiatric: other (unable to assess) CBC and BMP: 05/03/19 04:57 05/03/19 04:57 ABG, PT/INR, D-dimer: ABG POC ABG pH 7.565 (7.35-7.45) H 04/19/19 04:35 ABG pH 7.396 pH Units (7.350-7.450) 04/03/19 05:35 POC ABG pCO2 36.2 (35-45) 04/19/19 04:35 ABG pCO2 32.2 mm Hg 04/03/19 05:35 POC ABG pO2 88 (80-105) 04/19/19 04:35 ABG pO2 97.7 mm Hg (80.0-90.0) H 04/03/19 05:35 POC ABG HCO3 32.8 (22-26 mml/L) 04/19/19 04:35 POC ABG Total CO2 34 (23-27mmol/L) 04/19/19 04:35 POC ABG O2 Sat 98 04/19/19 04:35 ABG O2 Saturation 97.6 % (95.0-99.0) 04/03/19 05:35 PT/INR, D-dimer PT 13.9 Sec. (12.2-14.9) 04/01/19 17:14 INR 1.10 (0.87-1.13) 04/01/19 17:14 D-Dimer 4526.86 ng/mlDDU (0-234) H 04/06/19 00:06 Abnormal lab findings: Abnormal Labs 03/29/19 03/29/19 03/29/19 19:11 19:20 19:20 WBC 26.7 H RBC 2.52 L Hgb 8.1 L Hct MCV 148 H MCH MCHC 22 L RDW 18.5 H Plt Count Lymph % (Auto) [place] % (Auto) Lymph # Seg Neutrophils % Seg Neuts % (Manual) 82.0 H Lymphocytes % (Manual) 7.0 L Nucleated RBC % Seg Neutrophils # Seg Neutrophils # Man 21.9 H Lymphocytes # (Manual) Monocytes # (Manual) 1.9 H PT 21.8 H INR 1.95 H APTT 74.5 H* D-Dimer POC ABG pH ABG pH POC ABG pCO2 POC ABG pO2 ABG pO2 ABG HCO3 ABG O2 Saturation ABG Base Excess ABG Hemoglobin VBG pH Oxyhemoglobin Sodium Potassium Chloride Carbon Dioxide BUN Creatinine Glucose POC Glucose > 500 H Lactic Acid Calcium Phosphorus Magnesium Iron TIBC Direct Bilirubin AST ALT Alkaline Phosphatase Total Creatine Kinase CK-MB (CK-2) C-Reactive Protein Total Protein Albumin Vitamin B12 Urine WBC (Auto) Salicylates Acetaminophen Miscellaneous Test Crossmatch 03/29/19 03/29/19 03/29/19 19:20 19:47 20:59 WBC RBC Hgb Hct MCV MCH MCHC RDW Plt Count Lymph % (Auto) [place] % (Auto) Lymph # Seg Neutrophils % Seg Neuts % (Manual) Lymphocytes % (Manual) Nucleated RBC % Seg Neutrophils # Seg Neutrophils # Man Lymphocytes # (Manual) Monocytes # (Manual) PT INR APTT D-Dimer POC ABG pH 6.892 L ABG pH POC ABG pCO2 POC ABG pO2 236 H ABG pO2 ABG HCO3 ABG O2 Saturation ABG Base Excess ABG Hemoglobin VBG pH 6.800 L* Oxyhemoglobin Sodium 118 L* Potassium 9.0 H* Chloride 64.5 L Carbon Dioxide 7 L* BUN 53 H Creatinine 2.1 H Glucose 2196 H* POC Glucose Lactic Acid Calcium 12.4 H* Phosphorus Magnesium Iron TIBC Direct Bilirubin AST 3900 H ALT 1034 H Alkaline Phosphatase 316 H Total Creatine Kinase CK-MB (CK-2) C-Reactive Protein Total Protein 5.1 L Albumin 2.8 L Vitamin B12 Urine WBC (Auto) Salicylates Acetaminophen Miscellaneous Test Crossmatch 03/29/19 03/29/19 03/29/19 22:45 22:45 22:45 WBC RBC Hgb Hct MCV MCH MCHC RDW Plt Count Lymph % (Auto) [place] % (Auto) Lymph # Seg Neutrophils % Seg Neuts % (Manual) Lymphocytes % (Manual) Nucleated RBC % Seg Neutrophils # Seg Neutrophils # Man Lymphocytes # (Manual) Monocytes # (Manual) PT INR APTT D-Dimer POC ABG pH ABG pH POC ABG pCO2 POC ABG pO2 ABG pO2 ABG HCO3 ABG O2 Saturation ABG Base Excess ABG Hemoglobin VBG pH Oxyhemoglobin Sodium 132 L D Potassium 7.0 H* Chloride 84.3 L Carbon Dioxide 3 L* BUN 48 H Creatinine 1.8 H Glucose 1779 H* POC Glucose Lactic Acid Calcium Phosphorus 21.70 H Magnesium 4.70 H Iron TIBC Direct Bilirubin AST ALT Alkaline Phosphatase Total Creatine Kinase 363 H CK-MB (CK-2) C-Reactive Protein Total Protein Albumin Vitamin B12 Urine WBC (Auto) Salicylates Acetaminophen Miscellaneous Test Crossmatch 03/29/19 03/29/19 03/30/19 Unknown Unknown 00:11 WBC RBC Hgb Hct MCV MCH MCHC RDW Plt Count Lymph % (Auto) [place] % (Auto) Lymph # Seg Neutrophils % Seg Neuts % (Manual) Lymphocytes % (Manual) Nucleated RBC % Seg Neutrophils # Seg Neutrophils # Man Lymphocytes # (Manual) Monocytes # (Manual) PT INR APTT D-Dimer POC ABG pH ABG pH POC ABG pCO2 POC ABG pO2 ABG pO2 ABG HCO3 ABG O2 Saturation ABG Base Excess ABG Hemoglobin VBG pH Oxyhemoglobin Sodium 122 L Potassium 7.9 H* 6.4 H* Chloride 75.3 L 89.7 L Carbon Dioxide 3 L* 12 L D BUN 52 H 46 H Creatinine 2.0 H 1.7 H Glucose 2043 H* 1591 H* POC Glucose Lactic Acid Calcium 7.8 L Phosphorus 19.30 H Magnesium 3.90 H Iron TIBC Direct Bilirubin AST ALT Alkaline Phosphatase Total Creatine Kinase CK-MB (CK-2) C-Reactive Protein Total Protein Albumin Vitamin B12 Urine WBC (Auto) Salicylates Acetaminophen Miscellaneous Test Crossmatch 03/30/19 03/30/19 03/30/19 00:11 02:14 02:14 WBC RBC Hgb Hct MCV MCH MCHC RDW Plt Count Lymph % (Auto) [place] % (Auto) Lymph # Seg Neutrophils % Seg Neuts % (Manual) Lymphocytes % (Manual) Nucleated RBC % Seg Neutrophils # Seg Neutrophils # Man Lymphocytes # (Manual) Monocytes # (Manual) PT INR APTT D-Dimer POC ABG pH ABG pH POC ABG pCO2 POC ABG pO2 ABG pO2 ABG HCO3 ABG O2 Saturation ABG Base Excess ABG Hemoglobin VBG pH Oxyhemoglobin Sodium Potassium Chloride Carbon Dioxide 9 L* BUN 45 H Creatinine 1.7 H Glucose 1155 H* POC Glucose Lactic Acid Calcium 7.9 L Phosphorus 10.90 H D 5.30 H D Magnesium 3.10 H 2.90 H Iron TIBC Direct Bilirubin AST ALT Alkaline Phosphatase Total Creatine Kinase CK-MB (CK-2) C-Reactive Protein Total Protein Albumin Vitamin B12 Urine WBC (Auto) Salicylates Acetaminophen Miscellaneous Test Crossmatch 03/30/19 03/30/19 03/30/19 03:15 03:30 04:23 WBC 18.0 H RBC 2.31 L Hgb 7.3 L Hct 23.8 L D MCV 103 H MCH MCHC RDW 17.1 H Plt Count Lymph % (Auto) [place] % (Auto) Lymph # Seg Neutrophils % Seg Neuts % (Manual) 79.0 H Lymphocytes % (Manual) Nucleated RBC % Seg Neutrophils # Seg Neutrophils # Man 14.2 H Lymphocytes # (Manual) Monocytes # (Manual) PT INR APTT D-Dimer POC ABG pH 7.251 L ABG pH POC ABG pCO2 POC ABG pO2 156 H ABG pO2 ABG HCO3 ABG O2 Saturation ABG Base Excess ABG Hemoglobin VBG pH Oxyhemoglobin Sodium Potassium Chloride Carbon Dioxide BUN Creatinine Glucose POC Glucose Lactic Acid Calcium Phosphorus Magnesium Iron TIBC Direct Bilirubin AST ALT Alkaline Phosphatase Total Creatine Kinase CK-MB (CK-2) C-Reactive Protein Total Protein Albumin Vitamin B12 Urine WBC (Auto) Salicylates Acetaminophen Miscellaneous Test Crossmatch See Detail 03/30/19 03/30/19 03/30/19 05:26 05:26 10:38 WBC RBC Hgb Hct MCV MCH MCHC RDW Plt Count Lymph % (Auto) [place] % (Auto) Lymph # Seg Neutrophils % Seg Neuts % (Manual) Lymphocytes % (Manual) Nucleated RBC % Seg Neutrophils # Seg Neutrophils # Man Lymphocytes # (Manual) Monocytes # (Manual) PT INR APTT D-Dimer POC ABG pH ABG pH POC ABG pCO2 POC ABG pO2 ABG pO2 ABG HCO3 ABG O2 Saturation ABG Base Excess ABG Hemoglobin VBG pH Oxyhemoglobin Sodium 158 H D Potassium 3.5 L Chloride 109.3 H Carbon Dioxide 19 L D BUN 40 H Creatinine 1.5 H Glucose 760 H* POC Glucose 380 H Lactic Acid Calcium 7.3 L Phosphorus Magnesium 2.60 H Iron TIBC Direct Bilirubin AST 72178 H ALT 2156 H Alkaline Phosphatase 271 H Total Creatine Kinase 2465 H CK-MB (CK-2) 52.7 H C-Reactive Protein Total Protein 4.5 L Albumin 2.4 L Vitamin B12 Urine WBC (Auto) Salicylates Acetaminophen Miscellaneous Test Crossmatch 03/30/19 03/30/19 03/30/19 11:08 12:25 12:57 WBC RBC Hgb Hct MCV MCH MCHC RDW Plt Count Lymph % (Auto) [place] % (Auto) Lymph # Seg Neutrophils % Seg Neuts % (Manual) Lymphocytes % (Manual) Nucleated RBC % Seg Neutrophils # Seg Neutrophils # Man Lymphocytes # (Manual) Monocytes # (Manual) PT INR APTT D-Dimer POC ABG pH ABG pH POC ABG pCO2 POC ABG pO2 ABG pO2 ABG HCO3 ABG O2 Saturation ABG Base Excess ABG Hemoglobin VBG pH Oxyhemoglobin Sodium 156 H Potassium 3.2 L Chloride 116.4 H Carbon Dioxide 21 L BUN 37 H Creatinine Glucose 162 H POC Glucose 263 H 196 H Lactic Acid Calcium 7.2 L Phosphorus Magnesium Iron TIBC Direct Bilirubin AST ALT Alkaline Phosphatase Total Creatine Kinase CK-MB (CK-2) C-Reactive Protein Total Protein Albumin Vitamin B12 Urine WBC (Auto) Salicylates Acetaminophen Miscellaneous Test Crossmatch 03/30/19 03/30/19 03/30/19 12:57 12:57 12:57 WBC RBC Hgb Hct MCV MCH MCHC RDW Plt Count Lymph % (Auto) [place] % (Auto) Lymph # Seg Neutrophils % Seg Neuts % (Manual) Lymphocytes % (Manual) Nucleated RBC % Seg Neutrophils # Seg Neutrophils # Man Lymphocytes # (Manual) Monocytes # (Manual) PT 21.0 H INR 1.86 H APTT D-Dimer POC ABG pH ABG pH POC ABG pCO2 POC ABG pO2 ABG pO2 ABG HCO3 ABG O2 Saturation ABG Base Excess ABG Hemoglobin VBG pH Oxyhemoglobin Sodium Potassium Chloride Carbon Dioxide BUN Creatinine Glucose POC Glucose Lactic Acid 9.00 H* Calcium Phosphorus Magnesium Iron TIBC Direct Bilirubin AST ALT Alkaline Phosphatase Total Creatine Kinase CK-MB (CK-2) C-Reactive Protein 2.40 H Total Protein Albumin Vitamin B12 Urine WBC (Auto) Salicylates Acetaminophen Miscellaneous Test Crossmatch 03/30/19 03/30/19 03/30/19 13:23 14:00 14:47 WBC RBC Hgb Hct MCV MCH MCHC RDW Plt Count Lymph % (Auto) [place] % (Auto) Lymph # Seg Neutrophils % Seg Neuts % (Manual) Lymphocytes % (Manual) Nucleated RBC % Seg Neutrophils # Seg Neutrophils # Man Lymphocytes # (Manual) Monocytes # (Manual) PT INR APTT D-Dimer POC ABG pH ABG pH POC ABG pCO2 POC ABG pO2 ABG pO2 ABG HCO3 ABG O2 Saturation ABG Base Excess ABG Hemoglobin VBG pH Oxyhemoglobin Sodium Potassium Chloride Carbon Dioxide BUN Creatinine Glucose POC Glucose 176 H 245 H Lactic Acid Calcium Phosphorus Magnesium Iron TIBC Direct Bilirubin AST ALT Alkaline Phosphatase Total Creatine Kinase CK-MB (CK-2) C-Reactive Protein Total Protein Albumin Vitamin B12 Urine WBC (Auto) Salicylates Acetaminophen Miscellaneous Test Flexitest 1 H Crossmatch 03/30/19 03/30/19 03/30/19 16:11 17:11 17:46 WBC RBC Hgb Hct MCV MCH MCHC RDW Plt Count Lymph % (Auto) [place] % (Auto) Lymph # Seg Neutrophils % Seg Neuts % (Manual) Lymphocytes % (Manual) Nucleated RBC % Seg Neutrophils # Seg Neutrophils # Man Lymphocytes # (Manual) Monocytes # (Manual) PT INR APTT D-Dimer POC ABG pH ABG pH POC ABG pCO2 POC ABG pO2 ABG pO2 ABG HCO3 ABG O2 Saturation ABG Base Excess ABG Hemoglobin VBG pH Oxyhemoglobin Sodium Potassium Chloride Carbon Dioxide BUN Creatinine Glucose POC Glucose 181 H 167 H 125 H Lactic Acid Calcium Phosphorus Magnesium Iron TIBC Direct Bilirubin AST ALT Alkaline Phosphatase Total Creatine Kinase CK-MB (CK-2) C-Reactive Protein Total Protein Albumin Vitamin B12 Urine WBC (Auto) Salicylates Acetaminophen Miscellaneous Test Crossmatch 03/30/19 03/30/19 03/30/19 18:59 21:31 22:19 WBC RBC Hgb Hct MCV MCH MCHC RDW Plt Count Lymph % (Auto) [place] % (Auto) Lymph # Seg Neutrophils % Seg Neuts % (Manual) Lymphocytes % (Manual) Nucleated RBC % Seg Neutrophils # Seg Neutrophils # Man Lymphocytes # (Manual) Monocytes # (Manual) PT INR APTT D-Dimer POC ABG pH ABG pH POC ABG pCO2 POC ABG pO2 ABG pO2 ABG HCO3 ABG O2 Saturation ABG Base Excess ABG Hemoglobin VBG pH Oxyhemoglobin Sodium Potassium Chloride Carbon Dioxide BUN Creatinine Glucose POC Glucose 140 H 166 H 115 H Lactic Acid Calcium Phosphorus Magnesium Iron TIBC Direct Bilirubin AST ALT Alkaline Phosphatase Total Creatine Kinase CK-MB (CK-2) C-Reactive Protein Total Protein Albumin Vitamin B12 Urine WBC (Auto) Salicylates Acetaminophen Miscellaneous Test Crossmatch 03/30/19 03/30/19 03/30/19 23:13 Unknown Unknown WBC RBC Hgb Hct MCV MCH MCHC RDW Plt Count Lymph % (Auto) [place] % (Auto) Lymph # Seg Neutrophils % Seg Neuts % (Manual) Lymphocytes % (Manual) Nucleated RBC % Seg Neutrophils # Seg Neutrophils # Man Lymphocytes # (Manual) Monocytes # (Manual) PT INR APTT D-Dimer POC ABG pH ABG pH POC ABG pCO2 POC ABG pO2 ABG pO2 47.8 L ABG HCO3 18.8 L ABG O2 Saturation 83.8 L ABG Base Excess -5.4 L ABG Hemoglobin 6.8 L VBG pH Oxyhemoglobin 81.8 L Sodium 157 H Potassium 3.3 L Chloride 117.9 H Carbon Dioxide 20 L BUN 36 H Creatinine Glucose 150 H POC Glucose 112 H Lactic Acid Calcium 7.2 L Phosphorus Magnesium Iron TIBC Direct Bilirubin AST ALT Alkaline Phosphatase Total Creatine Kinase CK-MB (CK-2) C-Reactive Protein Total Protein Albumin Vitamin B12 Urine WBC (Auto) Salicylates Acetaminophen Miscellaneous Test Crossmatch 03/30/19 03/30/19 03/31/19 Unknown Unknown 00:03 WBC RBC Hgb Hct MCV MCH MCHC RDW Plt Count Lymph % (Auto) [place] % (Auto) Lymph # Seg Neutrophils % Seg Neuts % (Manual) Lymphocytes % (Manual) Nucleated RBC % Seg Neutrophils # Seg Neutrophils # Man Lymphocytes # (Manual) Monocytes # (Manual) PT INR APTT D-Dimer POC ABG pH ABG pH POC ABG pCO2 POC ABG pO2 ABG pO2 ABG HCO3 ABG O2 Saturation ABG Base Excess ABG Hemoglobin VBG pH Oxyhemoglobin Sodium Potassium Chloride Carbon Dioxide BUN Creatinine Glucose POC Glucose 188 H Lactic Acid Calcium Phosphorus Magnesium Iron TIBC Direct Bilirubin AST ALT Alkaline Phosphatase Total Creatine Kinase CK-MB (CK-2) C-Reactive Protein Total Protein Albumin Vitamin B12 Urine WBC (Auto) Salicylates 0.8 L Acetaminophen < 5.0 L Miscellaneous Test Crossmatch 03/31/19 03/31/19 03/31/19 01:18 03:07 03:50 WBC RBC Hgb Hct MCV MCH MCHC RDW Plt Count Lymph % (Auto) [place] % (Auto) Lymph # Seg Neutrophils % Seg Neuts % (Manual) Lymphocytes % (Manual) Nucleated RBC % Seg Neutrophils # Seg Neutrophils # Man Lymphocytes # (Manual) Monocytes # (Manual) PT INR APTT D-Dimer POC ABG pH ABG pH 7.525 H POC ABG pCO2 POC ABG pO2 ABG pO2 178.0 H ABG HCO3 19.5 L ABG O2 Saturation 99.2 H ABG Base Excess -3.1 L ABG Hemoglobin 5.8 L VBG pH Oxyhemoglobin Sodium Potassium Chloride Carbon Dioxide BUN Creatinine Glucose POC Glucose 114 H 107 H Lactic Acid Calcium Phosphorus Magnesium Iron TIBC Direct Bilirubin AST ALT Alkaline Phosphatase Total Creatine Kinase CK-MB (CK-2) C-Reactive Protein Total Protein Albumin Vitamin B12 Urine WBC (Auto) Salicylates Acetaminophen Miscellaneous Test Crossmatch 03/31/19 03/31/19 03/31/19 03:51 03:51 04:05 WBC RBC 1.89 L Hgb 6.1 L Hct 18.2 L* MCV MCH MCHC RDW 17.7 H Plt Count 89 L Lymph % (Auto) [place] % (Auto) Lymph # Seg Neutrophils % Seg Neuts % (Manual) 86.0 H Lymphocytes % (Manual) 10.0 L Nucleated RBC % 1.0 H Seg Neutrophils # Seg Neutrophils # Man Lymphocytes # (Manual) 0.7 L Monocytes # (Manual) PT INR APTT D-Dimer POC ABG pH ABG pH POC ABG pCO2 POC ABG pO2 ABG pO2 ABG HCO3 ABG O2 Saturation ABG Base Excess ABG Hemoglobin VBG pH Oxyhemoglobin Sodium 151 H Potassium 3.2 L Chloride 119.4 H Carbon Dioxide 17 L BUN 35 H Creatinine Glucose 139 H POC Glucose 153 H Lactic Acid Calcium 7.1 L Phosphorus Magnesium Iron TIBC Direct Bilirubin AST ALT Alkaline Phosphatase Total Creatine Kinase CK-MB (CK-2) C-Reactive Protein Total Protein Albumin Vitamin B12 Urine WBC (Auto) Salicylates Acetaminophen Miscellaneous Test Crossmatch 03/31/19 03/31/19 03/31/19 05:05 05:35 06:23 WBC RBC Hgb Hct MCV MCH MCHC RDW Plt Count Lymph % (Auto) [place] % (Auto) Lymph # Seg Neutrophils % Seg Neuts % (Manual) Lymphocytes % (Manual) Nucleated RBC % Seg Neutrophils # Seg Neutrophils # Man Lymphocytes # (Manual) Monocytes # (Manual) PT INR APTT D-Dimer POC ABG pH ABG pH POC ABG pCO2 POC ABG pO2 ABG pO2 ABG HCO3 ABG O2 Saturation ABG Base Excess ABG Hemoglobin VBG pH Oxyhemoglobin Sodium Potassium Chloride Carbon Dioxide BUN Creatinine Glucose POC Glucose 176 H 133 H Lactic Acid 3.20 H* Calcium Phosphorus Magnesium Iron TIBC Direct Bilirubin AST ALT Alkaline Phosphatase Total Creatine Kinase CK-MB (CK-2) C-Reactive Protein Total Protein Albumin Vitamin B12 Urine WBC (Auto) Salicylates Acetaminophen Miscellaneous Test Crossmatch 03/31/19 03/31/19 03/31/19 07:50 07:51 08:20 WBC RBC Hgb Hct MCV MCH MCHC RDW Plt Count Lymph % (Auto) [place] % (Auto) Lymph # Seg Neutrophils % Seg Neuts % (Manual) Lymphocytes % (Manual) Nucleated RBC % Seg Neutrophils # Seg Neutrophils # Man Lymphocytes # (Manual) Monocytes # (Manual) PT INR APTT D-Dimer POC ABG pH ABG pH POC ABG pCO2 POC ABG pO2 ABG pO2 ABG HCO3 ABG O2 Saturation ABG Base Excess ABG Hemoglobin VBG pH Oxyhemoglobin Sodium Potassium Chloride Carbon Dioxide BUN Creatinine Glucose POC Glucose 135 H Lactic Acid 3.30 H* Calcium Phosphorus Magnesium Iron 26 L TIBC 193 L Direct Bilirubin AST ALT Alkaline Phosphatase Total Creatine Kinase CK-MB (CK-2) C-Reactive Protein Total Protein Albumin Vitamin B12 Urine WBC (Auto) Salicylates Acetaminophen Miscellaneous Test Crossmatch 03/31/19 03/31/19 03/31/19 08:20 08:20 09:06 WBC RBC Hgb Hct MCV MCH MCHC RDW Plt Count Lymph % (Auto) [place] % (Auto) Lymph # Seg Neutrophils % Seg Neuts % (Manual) Lymphocytes % (Manual) Nucleated RBC % Seg Neutrophils # Seg Neutrophils # Man Lymphocytes # (Manual) Monocytes # (Manual) PT INR APTT D-Dimer POC ABG pH ABG pH POC ABG pCO2 POC ABG pO2 ABG pO2 ABG HCO3 ABG O2 Saturation ABG Base Excess ABG Hemoglobin VBG pH Oxyhemoglobin Sodium 153 H Potassium 3.0 L Chloride 118.9 H Carbon Dioxide 18 L BUN 37 H Creatinine Glucose 132 H POC Glucose 145 H Lactic Acid Calcium 7.1 L Phosphorus Magnesium Iron TIBC Direct Bilirubin AST ALT Alkaline Phosphatase Total Creatine Kinase CK-MB (CK-2) C-Reactive Protein Total Protein Albumin Vitamin B12 > 2000 H Urine WBC (Auto) Salicylates Acetaminophen Miscellaneous Test Crossmatch 03/31/19 03/31/19 03/31/19 10:47 11:49 13:04 WBC RBC Hgb Hct MCV MCH MCHC RDW Plt Count Lymph % (Auto) [place] % (Auto) Lymph # Seg Neutrophils % Seg Neuts % (Manual) Lymphocytes % (Manual) Nucleated RBC % Seg Neutrophils # Seg Neutrophils # Man Lymphocytes # (Manual) Monocytes # (Manual) PT INR APTT D-Dimer POC ABG pH ABG pH POC ABG pCO2 POC ABG pO2 ABG pO2 ABG HCO3 ABG O2 Saturation ABG Base Excess ABG Hemoglobin VBG pH Oxyhemoglobin Sodium Potassium Chloride Carbon Dioxide BUN Creatinine Glucose POC Glucose 153 H 174 H 214 H Lactic Acid Calcium Phosphorus Magnesium Iron TIBC Direct Bilirubin AST ALT Alkaline Phosphatase Total Creatine Kinase CK-MB (CK-2) C-Reactive Protein Total Protein Albumin Vitamin B12 Urine WBC (Auto) Salicylates Acetaminophen Miscellaneous Test Crossmatch 03/31/19 03/31/19 03/31/19 13:42 15:08 16:08 WBC RBC Hgb Hct MCV MCH MCHC RDW Plt Count Lymph % (Auto) [place] % (Auto) Lymph # Seg Neutrophils % Seg Neuts % (Manual) Lymphocytes % (Manual) Nucleated RBC % Seg Neutrophils # Seg Neutrophils # Man Lymphocytes # (Manual) Monocytes # (Manual) PT INR APTT D-Dimer POC ABG pH ABG pH POC ABG pCO2 POC ABG pO2 ABG pO2 ABG HCO3 ABG O2 Saturation ABG Base Excess ABG Hemoglobin VBG pH Oxyhemoglobin Sodium Potassium Chloride Carbon Dioxide BUN Creatinine Glucose POC Glucose 186 H 136 H 150 H Lactic Acid Calcium Phosphorus Magnesium Iron TIBC Direct Bilirubin AST ALT Alkaline Phosphatase Total Creatine Kinase CK-MB (CK-2) C-Reactive Protein Total Protein Albumin Vitamin B12 Urine WBC (Auto) Salicylates Acetaminophen Miscellaneous Test Crossmatch 03/31/19 03/31/19 03/31/19 17:11 17:30 17:30 WBC RBC Hgb 7.7 L Hct 23.0 L MCV MCH MCHC RDW Plt Count Lymph % (Auto) [place] % (Auto) Lymph # Seg Neutrophils % Seg Neuts % (Manual) Lymphocytes % (Manual) Nucleated RBC % Seg Neutrophils # Seg Neutrophils # Man Lymphocytes # (Manual) Monocytes # (Manual) PT INR APTT D-Dimer POC ABG pH ABG pH POC ABG pCO2 POC ABG pO2 ABG pO2 ABG HCO3 ABG O2 Saturation ABG Base Excess ABG Hemoglobin VBG pH Oxyhemoglobin Sodium 153 H Potassium 3.5 L Chloride 119.3 H Carbon Dioxide 20 L BUN 34 H Creatinine Glucose 162 H POC Glucose 140 H Lactic Acid Calcium 7.6 L Phosphorus Magnesium Iron TIBC Direct Bilirubin AST ALT Alkaline Phosphatase Total Creatine Kinase CK-MB (CK-2) C-Reactive Protein Total Protein Albumin Vitamin B12 Urine WBC (Auto) Salicylates Acetaminophen Miscellaneous Test Crossmatch 03/31/19 03/31/19 03/31/19 17:59 18:58 20:28 WBC RBC Hgb Hct MCV MCH MCHC RDW Plt Count Lymph % (Auto) [place] % (Auto) Lymph # Seg Neutrophils % Seg Neuts % (Manual) Lymphocytes % (Manual) Nucleated RBC % Seg Neutrophils # Seg Neutrophils # Man Lymphocytes # (Manual) Monocytes # (Manual) PT INR APTT D-Dimer POC ABG pH ABG pH POC ABG pCO2 POC ABG pO2 ABG pO2 ABG HCO3 ABG O2 Saturation ABG Base Excess ABG Hemoglobin VBG pH Oxyhemoglobin Sodium Potassium Chloride Carbon Dioxide BUN Creatinine Glucose POC Glucose 156 H 152 H 138 H Lactic Acid Calcium Phosphorus Magnesium Iron TIBC Direct Bilirubin AST ALT Alkaline Phosphatase Total Creatine Kinase CK-MB (CK-2) C-Reactive Protein Total Protein Albumin Vitamin B12 Urine WBC (Auto) Salicylates Acetaminophen Miscellaneous Test Crossmatch 03/31/19 03/31/19 03/31/19 21:09 22:15 23:10 WBC RBC Hgb Hct MCV MCH MCHC RDW Plt Count Lymph % (Auto) [place] % (Auto) Lymph # Seg Neutrophils % Seg Neuts % (Manual) Lymphocytes % (Manual) Nucleated RBC % Seg Neutrophils # Seg Neutrophils # Man Lymphocytes # (Manual) Monocytes # (Manual) PT INR APTT D-Dimer POC ABG pH ABG pH POC ABG pCO2 POC ABG pO2 ABG pO2 ABG HCO3 ABG O2 Saturation ABG Base Excess ABG Hemoglobin VBG pH Oxyhemoglobin Sodium Potassium Chloride Carbon Dioxide BUN Creatinine Glucose POC Glucose 136 H 137 H 148 H Lactic Acid Calcium Phosphorus Magnesium Iron TIBC Direct Bilirubin AST ALT Alkaline Phosphatase Total Creatine Kinase CK-MB (CK-2) C-Reactive Protein Total Protein Albumin Vitamin B12 Urine WBC (Auto) Salicylates Acetaminophen Miscellaneous Test Crossmatch 04/01/19 04/01/19 04/01/19 00:05 01:17 02:11 WBC RBC Hgb Hct MCV MCH MCHC RDW Plt Count Lymph % (Auto) [place] % (Auto) Lymph # Seg Neutrophils % Seg Neuts % (Manual) Lymphocytes % (Manual) Nucleated RBC % Seg Neutrophils # Seg Neutrophils # Man Lymphocytes # (Manual) Monocytes # (Manual) PT INR APTT D-Dimer POC ABG pH ABG pH POC ABG pCO2 POC ABG pO2 ABG pO2 ABG HCO3 ABG O2 Saturation ABG Base Excess ABG Hemoglobin VBG pH Oxyhemoglobin Sodium Potassium Chloride Carbon Dioxide BUN Creatinine Glucose POC Glucose 143 H 151 H 155 H Lactic Acid Calcium Phosphorus Magnesium Iron TIBC Direct Bilirubin AST ALT Alkaline Phosphatase Total Creatine Kinase CK-MB (CK-2) C-Reactive Protein Total Protein Albumin Vitamin B12 Urine WBC (Auto) Salicylates Acetaminophen Miscellaneous Test Crossmatch 04/01/19 04/01/19 04/01/19 03:12 04:03 04:16 WBC RBC Hgb Hct MCV MCH MCHC RDW Plt Count Lymph % (Auto) [place] % (Auto) Lymph # Seg Neutrophils % Seg Neuts % (Manual) Lymphocytes % (Manual) Nucleated RBC % Seg Neutrophils # Seg Neutrophils # Man Lymphocytes # (Manual) Monocytes # (Manual) PT INR APTT D-Dimer POC ABG pH ABG pH POC ABG pCO2 POC ABG pO2 ABG pO2 ABG HCO3 ABG O2 Saturation ABG Base Excess ABG Hemoglobin VBG pH Oxyhemoglobin Sodium Potassium Chloride Carbon Dioxide BUN Creatinine Glucose POC Glucose 140 H 143 H 142 H Lactic Acid Calcium Phosphorus Magnesium Iron TIBC Direct Bilirubin AST ALT Alkaline Phosphatase Total Creatine Kinase CK-MB (CK-2) C-Reactive Protein Total Protein Albumin Vitamin B12 Urine WBC (Auto) Salicylates Acetaminophen Miscellaneous Test Crossmatch 04/01/19 04/01/19 04/01/19 05:01 05:01 05:08 WBC RBC 2.05 L Hgb 6.8 L Hct 20.5 L MCV 100 H MCH 33 H MCHC RDW 17.7 H Plt Count 53 L Lymph % (Auto) [place] % (Auto) Lymph # Seg Neutrophils % Seg Neuts % (Manual) 71.0 H Lymphocytes % (Manual) Nucleated RBC % Seg Neutrophils # Seg Neutrophils # Man Lymphocytes # (Manual) Monocytes # (Manual) PT INR APTT D-Dimer POC ABG pH ABG pH POC ABG pCO2 POC ABG pO2 ABG pO2 ABG HCO3 ABG O2 Saturation ABG Base Excess ABG Hemoglobin VBG pH Oxyhemoglobin Sodium Potassium Chloride Carbon Dioxide BUN Creatinine Glucose POC Glucose 119 H Lactic Acid Calcium Phosphorus Magnesium Iron TIBC Direct Bilirubin 0.3 H AST 4601 H ALT 1542 H Alkaline Phosphatase 185 H Total Creatine Kinase CK-MB (CK-2) C-Reactive Protein Total Protein 3.8 L Albumin 1.6 L Vitamin B12 Urine WBC (Auto) Salicylates Acetaminophen Miscellaneous Test Crossmatch 04/01/19 04/01/19 04/01/19 05:23 06:37 08:15 WBC RBC Hgb Hct MCV MCH MCHC RDW Plt Count Lymph % (Auto) [place] % (Auto) Lymph # Seg Neutrophils % Seg Neuts % (Manual) Lymphocytes % (Manual) Nucleated RBC % Seg Neutrophils # Seg Neutrophils # Man Lymphocytes # (Manual) Monocytes # (Manual) PT INR APTT D-Dimer POC ABG pH ABG pH POC ABG pCO2 POC ABG pO2 ABG pO2 ABG HCO3 ABG O2 Saturation ABG Base Excess ABG Hemoglobin VBG pH Oxyhemoglobin Sodium Potassium Chloride Carbon Dioxide BUN Creatinine Glucose POC Glucose 115 H 124 H 138 H Lactic Acid Calcium Phosphorus Magnesium Iron TIBC Direct Bilirubin AST ALT Alkaline Phosphatase Total Creatine Kinase CK-MB (CK-2) C-Reactive Protein Total Protein Albumin Vitamin B12 Urine WBC (Auto) Salicylates Acetaminophen Miscellaneous Test Crossmatch 04/01/19 04/01/19 04/01/19 09:50 10:10 10:31 WBC RBC Hgb 6.5 L Hct 19.2 L* MCV MCH MCHC RDW Plt Count Lymph % (Auto) [place] % (Auto) Lymph # Seg Neutrophils % Seg Neuts % (Manual) Lymphocytes % (Manual) Nucleated RBC % Seg Neutrophils # Seg Neutrophils # Man Lymphocytes # (Manual) Monocytes # (Manual) PT INR APTT D-Dimer POC ABG pH ABG pH POC ABG pCO2 POC ABG pO2 ABG pO2 ABG HCO3 ABG O2 Saturation ABG Base Excess ABG Hemoglobin VBG pH Oxyhemoglobin Sodium 149 H Potassium 3.5 L Chloride 119.9 H Carbon Dioxide 21 L BUN 33 H Creatinine 0.5 L Glucose 142 H POC Glucose 185 H Lactic Acid Calcium 7.3 L Phosphorus Magnesium Iron TIBC Direct Bilirubin AST 3686 H ALT 1440 H Alkaline Phosphatase 185 H Total Creatine Kinase CK-MB (CK-2) C-Reactive Protein Total Protein 3.7 L Albumin 1.8 L Vitamin B12 Urine WBC (Auto) Salicylates Acetaminophen Miscellaneous Test Crossmatch 04/01/19 04/01/19 04/01/19 11:35 13:05 14:35 WBC RBC Hgb Hct MCV MCH MCHC RDW Plt Count Lymph % (Auto) [place] % (Auto) Lymph # Seg Neutrophils % Seg Neuts % (Manual) Lymphocytes % (Manual) Nucleated RBC % Seg Neutrophils # Seg Neutrophils # Man Lymphocytes # (Manual) Monocytes # (Manual) PT INR APTT D-Dimer POC ABG pH ABG pH POC ABG pCO2 POC ABG pO2 ABG pO2 ABG HCO3 ABG O2 Saturation ABG Base Excess ABG Hemoglobin VBG pH Oxyhemoglobin Sodium Potassium Chloride Carbon Dioxide BUN Creatinine Glucose POC Glucose 201 H 169 H 134 H Lactic Acid Calcium Phosphorus Magnesium Iron TIBC Direct Bilirubin AST ALT Alkaline Phosphatase Total Creatine Kinase CK-MB (CK-2) C-Reactive Protein Total Protein Albumin Vitamin B12 Urine WBC (Auto) Salicylates Acetaminophen Miscellaneous Test Crossmatch 04/01/19 04/01/19 04/01/19 17:13 17:14 18:30 WBC RBC Hgb Hct MCV MCH MCHC RDW Plt Count Lymph % (Auto) [place] % (Auto) Lymph # Seg Neutrophils % Seg Neuts % (Manual) Lymphocytes % (Manual) Nucleated RBC % Seg Neutrophils # Seg Neutrophils # Man Lymphocytes # (Manual) Monocytes # (Manual) PT INR APTT D-Dimer 5203.68 H POC ABG pH ABG pH POC ABG pCO2 POC ABG pO2 ABG pO2 ABG HCO3 ABG O2 Saturation ABG Base Excess ABG Hemoglobin VBG pH Oxyhemoglobin Sodium Potassium Chloride Carbon Dioxide BUN Creatinine Glucose POC Glucose 69 L 128 H Lactic Acid Calcium Phosphorus Magnesium Iron TIBC Direct Bilirubin AST ALT Alkaline Phosphatase Total Creatine Kinase CK-MB (CK-2) C-Reactive Protein Total Protein Albumin Vitamin B12 Urine WBC (Auto) Salicylates Acetaminophen Miscellaneous Test Crossmatch 04/01/19 04/01/19 04/02/19 22:50 Unknown 03:40 WBC RBC Hgb Hct MCV MCH MCHC RDW Plt Count Lymph % (Auto) [place] % (Auto) Lymph # Seg Neutrophils % Seg Neuts % (Manual) Lymphocytes % (Manual) Nucleated RBC % Seg Neutrophils # Seg Neutrophils # Man Lymphocytes # (Manual) Monocytes # (Manual) PT INR APTT D-Dimer POC ABG pH ABG pH POC ABG pCO2 POC ABG pO2 ABG pO2 78.3 L 142.8 H ABG HCO3 15.5 L ABG O2 Saturation ABG Base Excess -3.5 L -8.2 L ABG Hemoglobin 6.8 L 8.2 L VBG pH Oxyhemoglobin 94.3 L Sodium Potassium Chloride Carbon Dioxide BUN Creatinine Glucose POC Glucose 342 H Lactic Acid Calcium Phosphorus Magnesium Iron TIBC Direct Bilirubin AST ALT Alkaline Phosphatase Total Creatine Kinase CK-MB (CK-2) C-Reactive Protein Total Protein Albumin Vitamin B12 Urine WBC (Auto) Salicylates Acetaminophen Miscellaneous Test Crossmatch 04/02/19 04/02/19 04/02/19 03:49 06:50 07:48 WBC RBC 2.65 L Hgb 8.6 L Hct 25.1 L MCV MCH MCHC RDW 17.6 H Plt Count 48 L Lymph % (Auto) [place] % (Auto) Lymph # Seg Neutrophils % Seg Neuts % (Manual) Lymphocytes % (Manual) Nucleated RBC % Seg Neutrophils # Seg Neutrophils # Man Lymphocytes # (Manual) Monocytes # (Manual) PT INR APTT D-Dimer POC ABG pH ABG pH POC ABG pCO2 POC ABG pO2 ABG pO2 ABG HCO3 ABG O2 Saturation ABG Base Excess ABG Hemoglobin VBG pH Oxyhemoglobin Sodium Potassium Chloride Carbon Dioxide BUN Creatinine Glucose POC Glucose 247 H 200 H Lactic Acid Calcium Phosphorus Magnesium Iron TIBC Direct Bilirubin AST ALT Alkaline Phosphatase Total Creatine Kinase CK-MB (CK-2) C-Reactive Protein Total Protein Albumin Vitamin B12 Urine WBC (Auto) Salicylates Acetaminophen Miscellaneous Test Crossmatch 04/02/19 04/02/19 04/02/19 07:48 11:18 14:07 WBC RBC Hgb Hct MCV MCH MCHC RDW Plt Count Lymph % (Auto) [place] % (Auto) Lymph # Seg Neutrophils % Seg Neuts % (Manual) Lymphocytes % (Manual) Nucleated RBC % Seg Neutrophils # Seg Neutrophils # Man Lymphocytes # (Manual) Monocytes # (Manual) PT INR APTT D-Dimer POC ABG pH ABG pH POC ABG pCO2 POC ABG pO2 ABG pO2 ABG HCO3 ABG O2 Saturation ABG Base Excess ABG Hemoglobin VBG pH Oxyhemoglobin Sodium Potassium 3.5 L Chloride 115.7 H Carbon Dioxide 19 L BUN 29 H Creatinine 0.5 L Glucose 159 H POC Glucose 154 H 149 H Lactic Acid Calcium 7.5 L Phosphorus Magnesium Iron TIBC Direct Bilirubin AST 1418 H ALT 1134 H Alkaline Phosphatase 242 H Total Creatine Kinase CK-MB (CK-2) C-Reactive Protein Total Protein 4.2 L Albumin 2.1 L Vitamin B12 Urine WBC (Auto) Salicylates Acetaminophen Miscellaneous Test Crossmatch 04/02/19 04/02/19 04/02/19 18:09 19:46 23:05 WBC RBC Hgb Hct MCV MCH MCHC RDW Plt Count Lymph % (Auto) [place] % (Auto) Lymph # Seg Neutrophils % Seg Neuts % (Manual) Lymphocytes % (Manual) Nucleated RBC % Seg Neutrophils # Seg Neutrophils # Man Lymphocytes # (Manual) Monocytes # (Manual) PT INR APTT D-Dimer POC ABG pH ABG pH POC ABG pCO2 POC ABG pO2 ABG pO2 ABG HCO3 ABG O2 Saturation ABG Base Excess ABG Hemoglobin VBG pH Oxyhemoglobin Sodium Potassium Chloride Carbon Dioxide BUN Creatinine Glucose POC Glucose 188 H 209 H 247 H Lactic Acid Calcium Phosphorus Magnesium Iron TIBC Direct Bilirubin AST ALT Alkaline Phosphatase Total Creatine Kinase CK-MB (CK-2) C-Reactive Protein Total Protein Albumin Vitamin B12 Urine WBC (Auto) Salicylates Acetaminophen Miscellaneous Test Crossmatch 04/03/19 04/03/19 04/03/19 02:58 03:40 03:40 WBC RBC 2.87 L Hgb 9.3 L Hct 27.0 L MCV MCH MCHC RDW 17.2 H Plt Count 65 L Lymph % (Auto) [place] % (Auto) 9.8 H Lymph # 1.1 L Seg Neutrophils % Seg Neuts % (Manual) Lymphocytes % (Manual) Nucleated RBC % Seg Neutrophils # Seg Neutrophils # Man Lymphocytes # (Manual) Monocytes # (Manual) PT INR APTT D-Dimer POC ABG pH ABG pH POC ABG pCO2 POC ABG pO2 ABG pO2 ABG HCO3 ABG O2 Saturation ABG Base Excess ABG Hemoglobin VBG pH Oxyhemoglobin Sodium 147 H Potassium 3.5 L Chloride 116.7 H Carbon Dioxide 18 L BUN Creatinine 0.4 L Glucose 150 H POC Glucose 166 H Lactic Acid Calcium 8.1 L Phosphorus 2.20 L Magnesium Iron TIBC Direct Bilirubin AST 594 H ALT 861 H Alkaline Phosphatase 299 H Total Creatine Kinase CK-MB (CK-2) C-Reactive Protein Total Protein 4.4 L Albumin 2.1 L Vitamin B12 Urine WBC (Auto) Salicylates Acetaminophen Miscellaneous Test Crossmatch 04/03/19 04/03/19 04/03/19 05:35 07:02 08:23 WBC RBC Hgb Hct MCV MCH MCHC RDW Plt Count Lymph % (Auto) [place] % (Auto) Lymph # Seg Neutrophils % Seg Neuts % (Manual) Lymphocytes % (Manual) Nucleated RBC % Seg Neutrophils # Seg Neutrophils # Man Lymphocytes # (Manual) Monocytes # (Manual) PT INR APTT D-Dimer POC ABG pH ABG pH POC ABG pCO2 POC ABG pO2 ABG pO2 97.7 H ABG HCO3 19.3 L ABG O2 Saturation ABG Base Excess -5.0 L ABG Hemoglobin 8.0 L VBG pH Oxyhemoglobin Sodium Potassium Chloride Carbon Dioxide BUN Creatinine Glucose POC Glucose 135 H 132 H Lactic Acid Calcium Phosphorus Magnesium Iron TIBC Direct Bilirubin AST ALT Alkaline Phosphatase Total Creatine Kinase CK-MB (CK-2) C-Reactive Protein Total Protein Albumin Vitamin B12 Urine WBC (Auto) Salicylates Acetaminophen Miscellaneous Test Crossmatch 04/03/19 04/03/19 04/03/19 11:58 15:11 17:53 WBC RBC Hgb Hct MCV MCH MCHC RDW Plt Count Lymph % (Auto) [place] % (Auto) Lymph # Seg Neutrophils % Seg Neuts % (Manual) Lymphocytes % (Manual) Nucleated RBC % Seg Neutrophils # Seg Neutrophils # Man Lymphocytes # (Manual) Monocytes # (Manual) PT INR APTT D-Dimer POC ABG pH ABG pH POC ABG pCO2 POC ABG pO2 ABG pO2 ABG HCO3 ABG O2 Saturation ABG Base Excess ABG Hemoglobin VBG pH Oxyhemoglobin Sodium Potassium Chloride Carbon Dioxide BUN Creatinine Glucose POC Glucose 179 H 213 H 223 H Lactic Acid Calcium Phosphorus Magnesium Iron TIBC Direct Bilirubin AST ALT Alkaline Phosphatase Total Creatine Kinase CK-MB (CK-2) C-Reactive Protein Total Protein Albumin Vitamin B12 Urine WBC (Auto) Salicylates Acetaminophen Miscellaneous Test Crossmatch 04/03/19 04/04/19 04/04/19 23:06 02:36 06:41 WBC RBC Hgb Hct MCV MCH MCHC RDW Plt Count Lymph % (Auto) [place] % (Auto) Lymph # Seg Neutrophils % Seg Neuts % (Manual) Lymphocytes % (Manual) Nucleated RBC % Seg Neutrophils # Seg Neutrophils # Man Lymphocytes # (Manual) Monocytes # (Manual) PT INR APTT D-Dimer POC ABG pH ABG pH POC ABG pCO2 POC ABG pO2 ABG pO2 ABG HCO3 ABG O2 Saturation ABG Base Excess ABG Hemoglobin VBG pH Oxyhemoglobin Sodium Potassium Chloride Carbon Dioxide BUN Creatinine Glucose POC Glucose 189 H 157 H 131 H Lactic Acid Calcium Phosphorus Magnesium Iron TIBC Direct Bilirubin AST ALT Alkaline Phosphatase Total Creatine Kinase CK-MB (CK-2) C-Reactive Protein Total Protein Albumin Vitamin B12 Urine WBC (Auto) Salicylates Acetaminophen Miscellaneous Test Crossmatch 04/04/19 04/04/19 04/04/19 11:42 15:45 18:21 WBC RBC Hgb Hct MCV MCH MCHC RDW Plt Count Lymph % (Auto) [place] % (Auto) Lymph # Seg Neutrophils % Seg Neuts % (Manual) Lymphocytes % (Manual) Nucleated RBC % Seg Neutrophils # Seg Neutrophils # Man Lymphocytes # (Manual) Monocytes # (Manual) PT INR APTT D-Dimer POC ABG pH ABG pH POC ABG pCO2 POC ABG pO2 ABG pO2 ABG HCO3 ABG O2 Saturation ABG Base Excess ABG Hemoglobin VBG pH Oxyhemoglobin Sodium Potassium Chloride Carbon Dioxide BUN Creatinine Glucose POC Glucose 233 H 236 H 255 H Lactic Acid Calcium Phosphorus Magnesium Iron TIBC Direct Bilirubin AST ALT Alkaline Phosphatase Total Creatine Kinase CK-MB (CK-2) C-Reactive Protein Total Protein Albumin Vitamin B12 Urine WBC (Auto) Salicylates Acetaminophen Miscellaneous Test Crossmatch 04/04/19 04/05/19 04/05/19 21:21 03:06 06:05 WBC RBC 2.68 L Hgb 8.5 L Hct 26.3 L MCV 98 H MCH MCHC RDW 17.4 H Plt Count Lymph % (Auto) [place] % (Auto) Lymph # Seg Neutrophils % Seg Neuts % (Manual) Lymphocytes % (Manual) Nucleated RBC % Seg Neutrophils # Seg Neutrophils # Man Lymphocytes # (Manual) Monocytes # (Manual) PT INR APTT D-Dimer POC ABG pH ABG pH POC ABG pCO2 POC ABG pO2 ABG pO2 ABG HCO3 ABG O2 Saturation ABG Base Excess ABG Hemoglobin VBG pH Oxyhemoglobin Sodium Potassium Chloride Carbon Dioxide BUN Creatinine Glucose POC Glucose 132 H 161 H Lactic Acid Calcium Phosphorus Magnesium Iron TIBC Direct Bilirubin AST ALT Alkaline Phosphatase Total Creatine Kinase CK-MB (CK-2) C-Reactive Protein Total Protein Albumin Vitamin B12 Urine WBC (Auto) Salicylates Acetaminophen Miscellaneous Test Crossmatch 04/05/19 04/05/19 04/05/19 06:05 06:49 10:23 WBC RBC Hgb Hct MCV MCH MCHC RDW Plt Count Lymph % (Auto) [place] % (Auto) Lymph # Seg Neutrophils % Seg Neuts % (Manual) Lymphocytes % (Manual) Nucleated RBC % Seg Neutrophils # Seg Neutrophils # Man Lymphocytes # (Manual) Monocytes # (Manual) PT INR APTT D-Dimer POC ABG pH ABG pH POC ABG pCO2 POC ABG pO2 ABG pO2 ABG HCO3 ABG O2 Saturation ABG Base Excess ABG Hemoglobin VBG pH Oxyhemoglobin Sodium Potassium Chloride 112.5 H Carbon Dioxide BUN Creatinine 0.2 L Glucose 237 H POC Glucose 283 H 296 H Lactic Acid Calcium 7.9 L Phosphorus Magnesium Iron TIBC Direct Bilirubin AST ALT Alkaline Phosphatase Total Creatine Kinase CK-MB (CK-2) C-Reactive Protein Total Protein Albumin Vitamin B12 Urine WBC (Auto) Salicylates Acetaminophen Miscellaneous Test Crossmatch 04/05/19 04/05/19 04/05/19 14:46 18:19 20:35 WBC RBC Hgb Hct MCV MCH MCHC RDW Plt Count Lymph % (Auto) [place] % (Auto) Lymph # Seg Neutrophils % Seg Neuts % (Manual) Lymphocytes % (Manual) Nucleated RBC % Seg Neutrophils # Seg Neutrophils # Man Lymphocytes # (Manual) Monocytes # (Manual) PT INR APTT D-Dimer POC ABG pH ABG pH POC ABG pCO2 POC ABG pO2 ABG pO2 ABG HCO3 ABG O2 Saturation ABG Base Excess ABG Hemoglobin VBG pH Oxyhemoglobin Sodium Potassium Chloride Carbon Dioxide BUN Creatinine Glucose POC Glucose 225 H 259 H 236 H Lactic Acid Calcium Phosphorus Magnesium Iron TIBC Direct Bilirubin AST ALT Alkaline Phosphatase Total Creatine Kinase CK-MB (CK-2) C-Reactive Protein Total Protein Albumin Vitamin B12 Urine WBC (Auto) Salicylates Acetaminophen Miscellaneous Test Crossmatch 04/05/19 04/06/19 04/06/19 23:11 00:06 03:14 WBC RBC Hgb Hct MCV MCH MCHC RDW Plt Count Lymph % (Auto) [place] % (Auto) Lymph # Seg Neutrophils % Seg Neuts % (Manual) Lymphocytes % (Manual) Nucleated RBC % Seg Neutrophils # Seg Neutrophils # Man Lymphocytes # (Manual) Monocytes # (Manual) PT INR APTT D-Dimer 4526.86 H POC ABG pH ABG pH POC ABG pCO2 POC ABG pO2 ABG pO2 ABG HCO3 ABG O2 Saturation ABG Base Excess ABG Hemoglobin VBG pH Oxyhemoglobin Sodium Potassium Chloride Carbon Dioxide BUN Creatinine Glucose POC Glucose 205 H 228 H Lactic Acid Calcium Phosphorus Magnesium Iron TIBC Direct Bilirubin AST ALT Alkaline Phosphatase Total Creatine Kinase CK-MB (CK-2) C-Reactive Protein Total Protein Albumin Vitamin B12 Urine WBC (Auto) Salicylates Acetaminophen Miscellaneous Test Crossmatch 04/06/19 04/06/19 04/06/19 05:20 05:20 07:57 WBC 15.1 H RBC 2.90 L Hgb 9.1 L Hct 28.0 L MCV MCH MCHC RDW 17.3 H Plt Count Lymph % (Auto) [place] % (Auto) Lymph # Seg Neutrophils % Seg Neuts % (Manual) Lymphocytes % (Manual) Nucleated RBC % Seg Neutrophils # Seg Neutrophils # Man Lymphocytes # (Manual) Monocytes # (Manual) PT INR APTT D-Dimer POC ABG pH ABG pH POC ABG pCO2 POC ABG pO2 ABG pO2 ABG HCO3 ABG O2 Saturation ABG Base Excess ABG Hemoglobin VBG pH Oxyhemoglobin Sodium Potassium Chloride Carbon Dioxide BUN Creatinine 0.2 L Glucose 161 H POC Glucose 191 H Lactic Acid Calcium 8.0 L Phosphorus Magnesium Iron TIBC Direct Bilirubin AST ALT Alkaline Phosphatase Total Creatine Kinase CK-MB (CK-2) C-Reactive Protein Total Protein Albumin Vitamin B12 Urine WBC (Auto) Salicylates Acetaminophen Miscellaneous Test Crossmatch 04/06/19 04/06/19 04/06/19 12:09 18:24 22:07 WBC RBC Hgb Hct MCV MCH MCHC RDW Plt Count Lymph % (Auto) [place] % (Auto) Lymph # Seg Neutrophils % Seg Neuts % (Manual) Lymphocytes % (Manual) Nucleated RBC % Seg Neutrophils # Seg Neutrophils # Man Lymphocytes # (Manual) Monocytes # (Manual) PT INR APTT D-Dimer POC ABG pH ABG pH POC ABG pCO2 POC ABG pO2 ABG pO2 ABG HCO3 ABG O2 Saturation ABG Base Excess ABG Hemoglobin VBG pH Oxyhemoglobin Sodium Potassium Chloride Carbon Dioxide BUN Creatinine Glucose POC Glucose 143 H 161 H 140 H Lactic Acid Calcium Phosphorus Magnesium Iron TIBC Direct Bilirubin AST ALT Alkaline Phosphatase Total Creatine Kinase CK-MB (CK-2) C-Reactive Protein Total Protein Albumin Vitamin B12 Urine WBC (Auto) Salicylates Acetaminophen Miscellaneous Test Crossmatch 04/07/19 04/07/19 04/07/19 03:00 04:30 04:30 WBC 13.0 H RBC 2.65 L Hgb 8.3 L Hct 25.5 L MCV MCH MCHC RDW 17.0 H Plt Count Lymph % (Auto) [place] % (Auto) Lymph # Seg Neutrophils % Seg Neuts % (Manual) Lymphocytes % (Manual) Nucleated RBC % Seg Neutrophils # Seg Neutrophils # Man Lymphocytes # (Manual) Monocytes # (Manual) PT INR APTT D-Dimer POC ABG pH ABG pH POC ABG pCO2 POC ABG pO2 ABG pO2 ABG HCO3 ABG O2 Saturation ABG Base Excess ABG Hemoglobin VBG pH Oxyhemoglobin Sodium Potassium Chloride Carbon Dioxide BUN Creatinine 0.2 L Glucose 208 H POC Glucose 224 H Lactic Acid Calcium 7.7 L Phosphorus Magnesium Iron TIBC Direct Bilirubin AST ALT Alkaline Phosphatase Total Creatine Kinase CK-MB (CK-2) C-Reactive Protein Total Protein Albumin Vitamin B12 Urine WBC (Auto) Salicylates Acetaminophen Miscellaneous Test Crossmatch 04/07/19 04/07/19 04/07/19 05:47 08:27 10:33 WBC RBC Hgb Hct MCV MCH MCHC RDW Plt Count Lymph % (Auto) [place] % (Auto) Lymph # Seg Neutrophils % Seg Neuts % (Manual) Lymphocytes % (Manual) Nucleated RBC % Seg Neutrophils # Seg Neutrophils # Man Lymphocytes # (Manual) Monocytes # (Manual) PT INR APTT D-Dimer POC ABG pH ABG pH POC ABG pCO2 POC ABG pO2 ABG pO2 ABG HCO3 ABG O2 Saturation ABG Base Excess ABG Hemoglobin VBG pH Oxyhemoglobin Sodium Potassium Chloride Carbon Dioxide BUN Creatinine Glucose POC Glucose 225 H 176 H 207 H Lactic Acid Calcium Phosphorus Magnesium Iron TIBC Direct Bilirubin AST ALT Alkaline Phosphatase Total Creatine Kinase CK-MB (CK-2) C-Reactive Protein Total Protein Albumin Vitamin B12 Urine WBC (Auto) Salicylates Acetaminophen Miscellaneous Test Crossmatch 04/07/19 04/07/19 04/07/19 14:13 18:32 22:42 WBC RBC Hgb Hct MCV MCH MCHC RDW Plt Count Lymph % (Auto) [place] % (Auto) Lymph # Seg Neutrophils % Seg Neuts % (Manual) Lymphocytes % (Manual) Nucleated RBC % Seg Neutrophils # Seg Neutrophils # Man Lymphocytes # (Manual) Monocytes # (Manual) PT INR APTT D-Dimer POC ABG pH ABG pH POC ABG pCO2 POC ABG pO2 ABG pO2 ABG HCO3 ABG O2 Saturation ABG Base Excess ABG Hemoglobin VBG pH Oxyhemoglobin Sodium Potassium Chloride Carbon Dioxide BUN Creatinine Glucose POC Glucose 219 H 227 H 238 H Lactic Acid Calcium Phosphorus Magnesium Iron TIBC Direct Bilirubin AST ALT Alkaline Phosphatase Total Creatine Kinase CK-MB (CK-2) C-Reactive Protein Total Protein Albumin Vitamin B12 Urine WBC (Auto) Salicylates Acetaminophen Miscellaneous Test Crossmatch 04/08/19 04/08/19 04/08/19 02:31 05:37 14:10 WBC RBC Hgb Hct MCV MCH MCHC RDW Plt Count Lymph % (Auto) [place] % (Auto) Lymph # Seg Neutrophils % Seg Neuts % (Manual) Lymphocytes % (Manual) Nucleated RBC % Seg Neutrophils # Seg Neutrophils # Man Lymphocytes # (Manual) Monocytes # (Manual) PT INR APTT D-Dimer POC ABG pH ABG pH POC ABG pCO2 POC ABG pO2 ABG pO2 ABG HCO3 ABG O2 Saturation ABG Base Excess ABG Hemoglobin VBG pH Oxyhemoglobin Sodium Potassium Chloride Carbon Dioxide BUN Creatinine Glucose POC Glucose 194 H 194 H 139 H Lactic Acid Calcium Phosphorus Magnesium Iron TIBC Direct Bilirubin AST ALT Alkaline Phosphatase Total Creatine Kinase CK-MB (CK-2) C-Reactive Protein Total Protein Albumin Vitamin B12 Urine WBC (Auto) Salicylates Acetaminophen Miscellaneous Test Crossmatch 04/08/19 04/08/19 04/09/19 17:43 23:20 03:28 WBC RBC Hgb Hct MCV MCH MCHC RDW Plt Count Lymph % (Auto) [place] % (Auto) Lymph # Seg Neutrophils % Seg Neuts % (Manual) Lymphocytes % (Manual) Nucleated RBC % Seg Neutrophils # Seg Neutrophils # Man Lymphocytes # (Manual) Monocytes # (Manual) PT INR APTT D-Dimer POC ABG pH ABG pH POC ABG pCO2 POC ABG pO2 ABG pO2 ABG HCO3 ABG O2 Saturation ABG Base Excess ABG Hemoglobin VBG pH Oxyhemoglobin Sodium Potassium Chloride Carbon Dioxide BUN Creatinine Glucose POC Glucose 261 H 277 H 301 H Lactic Acid Calcium Phosphorus Magnesium Iron TIBC Direct Bilirubin AST ALT Alkaline Phosphatase Total Creatine Kinase CK-MB (CK-2) C-Reactive Protein Total Protein Albumin Vitamin B12 Urine WBC (Auto) Salicylates Acetaminophen Miscellaneous Test Crossmatch 04/09/19 04/09/19 04/09/19 05:35 05:35 05:35 WBC RBC 2.78 L Hgb 9.0 L Hct 26.7 L MCV MCH MCHC RDW 17.0 H Plt Count Lymph % (Auto) [place] % (Auto) Lymph # Seg Neutrophils % Seg Neuts % (Manual) Lymphocytes % (Manual) Nucleated RBC % Seg Neutrophils # Seg Neutrophils # Man Lymphocytes # (Manual) Monocytes # (Manual) PT INR APTT D-Dimer POC ABG pH ABG pH POC ABG pCO2 POC ABG pO2 ABG pO2 ABG HCO3 ABG O2 Saturation ABG Base Excess ABG Hemoglobin VBG pH Oxyhemoglobin Sodium Potassium Chloride Carbon Dioxide 31 H BUN Creatinine 0.2 L Glucose 218 H POC Glucose 240 H Lactic Acid Calcium Phosphorus Magnesium Iron TIBC Direct Bilirubin AST ALT Alkaline Phosphatase Total Creatine Kinase CK-MB (CK-2) C-Reactive Protein Total Protein Albumin Vitamin B12 Urine WBC (Auto) Salicylates Acetaminophen Miscellaneous Test Crossmatch 04/09/19 04/09/19 04/09/19 09:01 12:23 17:33 WBC RBC Hgb Hct MCV MCH MCHC RDW Plt Count Lymph % (Auto) [place] % (Auto) Lymph # Seg Neutrophils % Seg Neuts % (Manual) Lymphocytes % (Manual) Nucleated RBC % Seg Neutrophils # Seg Neutrophils # Man Lymphocytes # (Manual) Monocytes # (Manual) PT INR APTT D-Dimer POC ABG pH ABG pH POC ABG pCO2 POC ABG pO2 ABG pO2 ABG HCO3 ABG O2 Saturation ABG Base Excess ABG Hemoglobin VBG pH Oxyhemoglobin Sodium Potassium Chloride Carbon Dioxide BUN Creatinine Glucose POC Glucose 160 H 162 H 149 H Lactic Acid Calcium Phosphorus Magnesium Iron TIBC Direct Bilirubin AST ALT Alkaline Phosphatase Total Creatine Kinase CK-MB (CK-2) C-Reactive Protein Total Protein Albumin Vitamin B12 Urine WBC (Auto) Salicylates Acetaminophen Miscellaneous Test Crossmatch 04/09/19 04/09/19 04/10/19 21:26 22:28 03:16 WBC RBC Hgb Hct MCV MCH MCHC RDW Plt Count Lymph % (Auto) [place] % (Auto) Lymph # Seg Neutrophils % Seg Neuts % (Manual) Lymphocytes % (Manual) Nucleated RBC % Seg Neutrophils # Seg Neutrophils # Man Lymphocytes # (Manual) Monocytes # (Manual) PT INR APTT D-Dimer POC ABG pH ABG pH POC ABG pCO2 POC ABG pO2 ABG pO2 ABG HCO3 ABG O2 Saturation ABG Base Excess ABG Hemoglobin VBG pH Oxyhemoglobin Sodium Potassium Chloride Carbon Dioxide BUN Creatinine Glucose POC Glucose 196 H 224 H 163 H Lactic Acid Calcium Phosphorus Magnesium Iron TIBC Direct Bilirubin AST ALT Alkaline Phosphatase Total Creatine Kinase CK-MB (CK-2) C-Reactive Protein Total Protein Albumin Vitamin B12 Urine WBC (Auto) Salicylates Acetaminophen Miscellaneous Test Crossmatch 04/10/19 04/10/19 04/10/19 04:15 04:15 05:30 WBC RBC 2.88 L Hgb 9.2 L Hct 27.9 L MCV MCH MCHC RDW 17.0 H Plt Count 454 H Lymph % (Auto) [place] % (Auto) Lymph # Seg Neutrophils % Seg Neuts % (Manual) Lymphocytes % (Manual) Nucleated RBC % Seg Neutrophils # Seg Neutrophils # Man Lymphocytes # (Manual) Monocytes # (Manual) PT INR APTT D-Dimer POC ABG pH ABG pH POC ABG pCO2 POC ABG pO2 ABG pO2 ABG HCO3 ABG O2 Saturation ABG Base Excess ABG Hemoglobin VBG pH Oxyhemoglobin Sodium Potassium Chloride Carbon Dioxide 32 H BUN Creatinine 0.2 L Glucose 126 H POC Glucose 135 H Lactic Acid Calcium Phosphorus Magnesium Iron TIBC Direct Bilirubin AST ALT Alkaline Phosphatase Total Creatine Kinase CK-MB (CK-2) C-Reactive Protein Total Protein Albumin Vitamin B12 Urine WBC (Auto) Salicylates Acetaminophen Miscellaneous Test Crossmatch 04/10/19 04/10/19 04/10/19 12:14 15:29 23:38 WBC RBC Hgb Hct MCV MCH MCHC RDW Plt Count Lymph % (Auto) [place] % (Auto) Lymph # Seg Neutrophils % Seg Neuts % (Manual) Lymphocytes % (Manual) Nucleated RBC % Seg Neutrophils # Seg Neutrophils # Man Lymphocytes # (Manual) Monocytes # (Manual) PT INR APTT D-Dimer POC ABG pH ABG pH POC ABG pCO2 POC ABG pO2 ABG pO2 ABG HCO3 ABG O2 Saturation ABG Base Excess ABG Hemoglobin VBG pH Oxyhemoglobin Sodium Potassium Chloride Carbon Dioxide BUN Creatinine Glucose POC Glucose 109 H 149 H 268 H Lactic Acid Calcium Phosphorus Magnesium Iron TIBC Direct Bilirubin AST ALT Alkaline Phosphatase Total Creatine Kinase CK-MB (CK-2) C-Reactive Protein Total Protein Albumin Vitamin B12 Urine WBC (Auto) Salicylates Acetaminophen Miscellaneous Test Crossmatch 04/11/19 04/11/19 04/11/19 05:27 12:08 18:08 WBC RBC Hgb Hct MCV MCH MCHC RDW Plt Count Lymph % (Auto) [place] % (Auto) Lymph # Seg Neutrophils % Seg Neuts % (Manual) Lymphocytes % (Manual) Nucleated RBC % Seg Neutrophils # Seg Neutrophils # Man Lymphocytes # (Manual) Monocytes # (Manual) PT INR APTT D-Dimer POC ABG pH ABG pH POC ABG pCO2 POC ABG pO2 ABG pO2 ABG HCO3 ABG O2 Saturation ABG Base Excess ABG Hemoglobin VBG pH Oxyhemoglobin Sodium Potassium Chloride Carbon Dioxide BUN Creatinine Glucose POC Glucose 109 H 185 H 190 H Lactic Acid Calcium Phosphorus Magnesium Iron TIBC Direct Bilirubin AST ALT Alkaline Phosphatase Total Creatine Kinase CK-MB (CK-2) C-Reactive Protein Total Protein Albumin Vitamin B12 Urine WBC (Auto) Salicylates Acetaminophen Miscellaneous Test Crossmatch 04/11/19 04/12/19 04/12/19 23:23 06:00 11:42 WBC RBC Hgb Hct MCV MCH MCHC RDW Plt Count Lymph % (Auto) [place] % (Auto) Lymph # Seg Neutrophils % Seg Neuts % (Manual) Lymphocytes % (Manual) Nucleated RBC % Seg Neutrophils # Seg Neutrophils # Man Lymphocytes # (Manual) Monocytes # (Manual) PT INR APTT D-Dimer POC ABG pH ABG pH POC ABG pCO2 POC ABG pO2 ABG pO2 ABG HCO3 ABG O2 Saturation ABG Base Excess ABG Hemoglobin VBG pH Oxyhemoglobin Sodium Potassium Chloride Carbon Dioxide BUN Creatinine Glucose POC Glucose 127 H 201 H 161 H Lactic Acid Calcium Phosphorus Magnesium Iron TIBC Direct Bilirubin AST ALT Alkaline Phosphatase Total Creatine Kinase CK-MB (CK-2) C-Reactive Protein Total Protein Albumin Vitamin B12 Urine WBC (Auto) Salicylates Acetaminophen Miscellaneous Test Crossmatch 04/12/19 04/12/19 04/12/19 17:56 20:07 21:59 WBC RBC Hgb Hct MCV MCH MCHC RDW Plt Count Lymph % (Auto) [place] % (Auto) Lymph # Seg Neutrophils % Seg Neuts % (Manual) Lymphocytes % (Manual) Nucleated RBC % Seg Neutrophils # Seg Neutrophils # Man Lymphocytes # (Manual) Monocytes # (Manual) PT INR APTT D-Dimer POC ABG pH ABG pH POC ABG pCO2 POC ABG pO2 ABG pO2 ABG HCO3 ABG O2 Saturation ABG Base Excess ABG Hemoglobin VBG pH Oxyhemoglobin Sodium Potassium Chloride Carbon Dioxide BUN Creatinine Glucose POC Glucose 145 H 158 H 203 H Lactic Acid Calcium Phosphorus Magnesium Iron TIBC Direct Bilirubin AST ALT Alkaline Phosphatase Total Creatine Kinase CK-MB (CK-2) C-Reactive Protein Total Protein Albumin Vitamin B12 Urine WBC (Auto) Salicylates Acetaminophen Miscellaneous Test Crossmatch 04/12/19 04/13/19 04/13/19 23:37 08:50 08:50 WBC 15.7 H RBC 3.12 L Hgb Hct 30.2 L MCV MCH 33 H MCHC RDW 18.0 H Plt Count 678 H Lymph % (Auto) [place] % (Auto) Lymph # Seg Neutrophils % Seg Neuts % (Manual) Lymphocytes % (Manual) Nucleated RBC % Seg Neutrophils # Seg Neutrophils # Man Lymphocytes # (Manual) Monocytes # (Manual) PT INR APTT D-Dimer POC ABG pH ABG pH POC ABG pCO2 POC ABG pO2 ABG pO2 ABG HCO3 ABG O2 Saturation ABG Base Excess ABG Hemoglobin VBG pH Oxyhemoglobin Sodium Potassium Chloride Carbon Dioxide BUN Creatinine < 0.2 L Glucose 46 L POC Glucose 238 H Lactic Acid Calcium Phosphorus Magnesium Iron TIBC Direct Bilirubin AST ALT Alkaline Phosphatase Total Creatine Kinase CK-MB (CK-2) C-Reactive Protein Total Protein Albumin Vitamin B12 Urine WBC (Auto) Salicylates Acetaminophen Miscellaneous Test Crossmatch 04/13/19 04/13/19 04/13/19 11:56 17:27 23:57 WBC RBC Hgb Hct MCV MCH MCHC RDW Plt Count Lymph % (Auto) [place] % (Auto) Lymph # Seg Neutrophils % Seg Neuts % (Manual) Lymphocytes % (Manual) Nucleated RBC % Seg Neutrophils # Seg Neutrophils # Man Lymphocytes # (Manual) Monocytes # (Manual) PT INR APTT D-Dimer POC ABG pH ABG pH POC ABG pCO2 POC ABG pO2 ABG pO2 ABG HCO3 ABG O2 Saturation ABG Base Excess ABG Hemoglobin VBG pH Oxyhemoglobin Sodium Potassium Chloride Carbon Dioxide BUN Creatinine Glucose POC Glucose 40 L 66 L 65 L Lactic Acid Calcium Phosphorus Magnesium Iron TIBC Direct Bilirubin AST ALT Alkaline Phosphatase Total Creatine Kinase CK-MB (CK-2) C-Reactive Protein Total Protein Albumin Vitamin B12 Urine WBC (Auto) Salicylates Acetaminophen Miscellaneous Test Crossmatch 04/14/19 04/14/19 04/14/19 05:28 08:20 08:20 WBC 17.8 H RBC 3.26 L Hgb Hct MCV 98 H MCH MCHC RDW 18.3 H Plt Count 622 H Lymph % (Auto) [place] % (Auto) Lymph # Seg Neutrophils % Seg Neuts % (Manual) Lymphocytes % (Manual) Nucleated RBC % Seg Neutrophils # Seg Neutrophils # Man Lymphocytes # (Manual) Monocytes # (Manual) PT INR APTT D-Dimer POC ABG pH ABG pH POC ABG pCO2 POC ABG pO2 ABG pO2 ABG HCO3 ABG O2 Saturation ABG Base Excess ABG Hemoglobin VBG pH Oxyhemoglobin Sodium Potassium Chloride Carbon Dioxide BUN 6 L Creatinine < 0.2 L Glucose 154 H POC Glucose 149 H Lactic Acid Calcium Phosphorus Magnesium Iron TIBC Direct Bilirubin AST ALT Alkaline Phosphatase Total Creatine Kinase CK-MB (CK-2) C-Reactive Protein Total Protein Albumin Vitamin B12 Urine WBC (Auto) Salicylates Acetaminophen Miscellaneous Test Crossmatch 04/14/19 04/14/19 04/14/19 12:16 17:54 23:35 WBC RBC Hgb Hct MCV MCH MCHC RDW Plt Count Lymph % (Auto) [place] % (Auto) Lymph # Seg Neutrophils % Seg Neuts % (Manual) Lymphocytes % (Manual) Nucleated RBC % Seg Neutrophils # Seg Neutrophils # Man Lymphocytes # (Manual) Monocytes # (Manual) PT INR APTT D-Dimer POC ABG pH ABG pH POC ABG pCO2 POC ABG pO2 ABG pO2 ABG HCO3 ABG O2 Saturation ABG Base Excess ABG Hemoglobin VBG pH Oxyhemoglobin Sodium Potassium Chloride Carbon Dioxide BUN Creatinine Glucose POC Glucose 176 H 224 H 173 H Lactic Acid Calcium Phosphorus Magnesium Iron TIBC Direct Bilirubin AST ALT Alkaline Phosphatase Total Creatine Kinase CK-MB (CK-2) C-Reactive Protein Total Protein Albumin Vitamin B12 Urine WBC (Auto) Salicylates Acetaminophen Miscellaneous Test Crossmatch 04/15/19 04/15/19 04/15/19 05:44 12:44 18:06 WBC RBC Hgb Hct MCV MCH MCHC RDW Plt Count Lymph % (Auto) [place] % (Auto) Lymph # Seg Neutrophils % Seg Neuts % (Manual) Lymphocytes % (Manual) Nucleated RBC % Seg Neutrophils # Seg Neutrophils # Man Lymphocytes # (Manual) Monocytes # (Manual) PT INR APTT D-Dimer POC ABG pH 7.461 H ABG pH POC ABG pCO2 45.5 H POC ABG pO2 ABG pO2 ABG HCO3 ABG O2 Saturation ABG Base Excess ABG Hemoglobin VBG pH Oxyhemoglobin Sodium Potassium Chloride Carbon Dioxide BUN Creatinine Glucose POC Glucose 255 H 365 H Lactic Acid Calcium Phosphorus Magnesium Iron TIBC Direct Bilirubin AST ALT Alkaline Phosphatase Total Creatine Kinase CK-MB (CK-2) C-Reactive Protein Total Protein Albumin Vitamin B12 Urine WBC (Auto) Salicylates Acetaminophen Miscellaneous Test Crossmatch 04/15/19 04/15/19 04/16/19 18:06 23:34 00:40 WBC RBC Hgb Hct MCV MCH MCHC RDW Plt Count Lymph % (Auto) [place] % (Auto) Lymph # Seg Neutrophils % Seg Neuts % (Manual) Lymphocytes % (Manual) Nucleated RBC % Seg Neutrophils # Seg Neutrophils # Man Lymphocytes # (Manual) Monocytes # (Manual) PT INR APTT D-Dimer POC ABG pH ABG pH POC ABG pCO2 POC ABG pO2 ABG pO2 ABG HCO3 ABG O2 Saturation ABG Base Excess ABG Hemoglobin VBG pH Oxyhemoglobin Sodium Potassium Chloride Carbon Dioxide BUN Creatinine Glucose POC Glucose 157 H 56 L 107 H Lactic Acid Calcium Phosphorus Magnesium Iron TIBC Direct Bilirubin AST ALT Alkaline Phosphatase Total Creatine Kinase CK-MB (CK-2) C-Reactive Protein Total Protein Albumin Vitamin B12 Urine WBC (Auto) Salicylates Acetaminophen Miscellaneous Test Crossmatch 04/16/19 04/16/19 04/16/19 09:06 09:06 11:21 WBC 12.9 H RBC 2.95 L Hgb 9.7 L Hct 28.9 L MCV 98 H MCH 33 H MCHC RDW 17.7 H Plt Count 581 H Lymph % (Auto) [place] % (Auto) Lymph # Seg Neutrophils % Seg Neuts % (Manual) Lymphocytes % (Manual) Nucleated RBC % Seg Neutrophils # Seg Neutrophils # Man Lymphocytes # (Manual) Monocytes # (Manual) PT INR APTT D-Dimer POC ABG pH ABG pH POC ABG pCO2 POC ABG pO2 ABG pO2 ABG HCO3 ABG O2 Saturation ABG Base Excess ABG Hemoglobin VBG pH Oxyhemoglobin Sodium Potassium Chloride Carbon Dioxide 31 H BUN Creatinine 0.2 L Glucose 155 H POC Glucose 184 H Lactic Acid Calcium Phosphorus Magnesium Iron TIBC Direct Bilirubin AST ALT Alkaline Phosphatase Total Creatine Kinase CK-MB (CK-2) C-Reactive Protein Total Protein Albumin Vitamin B12 Urine WBC (Auto) Salicylates Acetaminophen Miscellaneous Test Crossmatch 04/16/19 04/16/19 04/16/19 17:28 20:17 23:09 WBC RBC Hgb Hct MCV MCH MCHC RDW Plt Count Lymph % (Auto) [place] % (Auto) Lymph # Seg Neutrophils % Seg Neuts % (Manual) Lymphocytes % (Manual) Nucleated RBC % Seg Neutrophils # Seg Neutrophils # Man Lymphocytes # (Manual) Monocytes # (Manual) PT INR APTT D-Dimer POC ABG pH 7.479 H ABG pH POC ABG pCO2 POC ABG pO2 71 L ABG pO2 ABG HCO3 ABG O2 Saturation ABG Base Excess ABG Hemoglobin VBG pH Oxyhemoglobin Sodium Potassium Chloride Carbon Dioxide BUN Creatinine Glucose POC Glucose 173 H 178 H Lactic Acid Calcium Phosphorus Magnesium Iron TIBC Direct Bilirubin AST ALT Alkaline Phosphatase Total Creatine Kinase CK-MB (CK-2) C-Reactive Protein Total Protein Albumin Vitamin B12 Urine WBC (Auto) Salicylates Acetaminophen Miscellaneous Test Crossmatch 04/17/19 04/17/19 04/17/19 05:02 11:39 12:48 WBC RBC Hgb Hct MCV MCH MCHC RDW Plt Count Lymph % (Auto) [place] % (Auto) Lymph # Seg Neutrophils % Seg Neuts % (Manual) Lymphocytes % (Manual) Nucleated RBC % Seg Neutrophils # Seg Neutrophils # Man Lymphocytes # (Manual) Monocytes # (Manual) PT INR APTT D-Dimer POC ABG pH 7.557 H ABG pH POC ABG pCO2 32.8 L POC ABG pO2 149 H ABG pO2 ABG HCO3 ABG O2 Saturation ABG Base Excess ABG Hemoglobin VBG pH Oxyhemoglobin Sodium Potassium Chloride Carbon Dioxide BUN Creatinine Glucose POC Glucose 252 H 124 H Lactic Acid Calcium Phosphorus Magnesium Iron TIBC Direct Bilirubin AST ALT Alkaline Phosphatase Total Creatine Kinase CK-MB (CK-2) C-Reactive Protein Total Protein Albumin Vitamin B12 Urine WBC (Auto) Salicylates Acetaminophen Miscellaneous Test Crossmatch 04/17/19 04/18/19 04/18/19 23:31 05:32 11:34 WBC RBC Hgb Hct MCV MCH MCHC RDW Plt Count Lymph % (Auto) [place] % (Auto) Lymph # Seg Neutrophils % Seg Neuts % (Manual) Lymphocytes % (Manual) Nucleated RBC % Seg Neutrophils # Seg Neutrophils # Man Lymphocytes # (Manual) Monocytes # (Manual) PT INR APTT D-Dimer POC ABG pH ABG pH POC ABG pCO2 POC ABG pO2 ABG pO2 ABG HCO3 ABG O2 Saturation ABG Base Excess ABG Hemoglobin VBG pH Oxyhemoglobin Sodium Potassium Chloride Carbon Dioxide BUN Creatinine Glucose POC Glucose 149 H 334 H 344 H Lactic Acid Calcium Phosphorus Magnesium Iron TIBC Direct Bilirubin AST ALT Alkaline Phosphatase Total Creatine Kinase CK-MB (CK-2) C-Reactive Protein Total Protein Albumin Vitamin B12 Urine WBC (Auto) Salicylates Acetaminophen Miscellaneous Test Crossmatch 04/18/19 04/18/19 04/18/19 17:43 18:14 23:35 WBC RBC Hgb Hct MCV MCH MCHC RDW Plt Count Lymph % (Auto) [place] % (Auto) Lymph # Seg Neutrophils % Seg Neuts % (Manual) Lymphocytes % (Manual) Nucleated RBC % Seg Neutrophils # Seg Neutrophils # Man Lymphocytes # (Manual) Monocytes # (Manual) PT INR APTT D-Dimer POC ABG pH ABG pH POC ABG pCO2 49.2 H POC ABG pO2 ABG pO2 ABG HCO3 ABG O2 Saturation ABG Base Excess ABG Hemoglobin VBG pH Oxyhemoglobin Sodium Potassium Chloride Carbon Dioxide BUN Creatinine Glucose POC Glucose 289 H 312 H Lactic Acid Calcium Phosphorus Magnesium Iron TIBC Direct Bilirubin AST ALT Alkaline Phosphatase Total Creatine Kinase CK-MB (CK-2) C-Reactive Protein Total Protein Albumin Vitamin B12 Urine WBC (Auto) Salicylates Acetaminophen Miscellaneous Test Crossmatch 04/19/19 04/19/19 04/19/19 04:35 05:55 12:26 WBC RBC Hgb Hct MCV MCH MCHC RDW Plt Count Lymph % (Auto) [place] % (Auto) Lymph # Seg Neutrophils % Seg Neuts % (Manual) Lymphocytes % (Manual) Nucleated RBC % Seg Neutrophils # Seg Neutrophils # Man Lymphocytes # (Manual) Monocytes # (Manual) PT INR APTT D-Dimer POC ABG pH 7.565 H ABG pH POC ABG pCO2 POC ABG pO2 ABG pO2 ABG HCO3 ABG O2 Saturation ABG Base Excess ABG Hemoglobin VBG pH Oxyhemoglobin Sodium Potassium Chloride Carbon Dioxide BUN Creatinine Glucose POC Glucose 172 H 271 H Lactic Acid Calcium Phosphorus Magnesium Iron TIBC Direct Bilirubin AST ALT Alkaline Phosphatase Total Creatine Kinase CK-MB (CK-2) C-Reactive Protein Total Protein Albumin Vitamin B12 Urine WBC (Auto) Salicylates Acetaminophen Miscellaneous Test Crossmatch 04/19/19 04/19/19 04/19/19 17:54 21:10 23:35 WBC RBC Hgb Hct MCV MCH MCHC RDW Plt Count Lymph % (Auto) [place] % (Auto) Lymph # Seg Neutrophils % Seg Neuts % (Manual) Lymphocytes % (Manual) Nucleated RBC % Seg Neutrophils # Seg Neutrophils # Man Lymphocytes # (Manual) Monocytes # (Manual) PT INR APTT D-Dimer POC ABG pH ABG pH POC ABG pCO2 POC ABG pO2 ABG pO2 ABG HCO3 ABG O2 Saturation ABG Base Excess ABG Hemoglobin VBG pH Oxyhemoglobin Sodium Potassium Chloride Carbon Dioxide BUN Creatinine Glucose POC Glucose 229 H 189 H 131 H Lactic Acid Calcium Phosphorus Magnesium Iron TIBC Direct Bilirubin AST ALT Alkaline Phosphatase Total Creatine Kinase CK-MB (CK-2) C-Reactive Protein Total Protein Albumin Vitamin B12 Urine WBC (Auto) Salicylates Acetaminophen Miscellaneous Test Crossmatch 04/20/19 04/20/19 04/20/19 05:42 11:58 17:32 WBC RBC Hgb Hct MCV MCH MCHC RDW Plt Count Lymph % (Auto) [place] % (Auto) Lymph # Seg Neutrophils % Seg Neuts % (Manual) Lymphocytes % (Manual) Nucleated RBC % Seg Neutrophils # Seg Neutrophils # Man Lymphocytes # (Manual) Monocytes # (Manual) PT INR APTT D-Dimer POC ABG pH ABG pH POC ABG pCO2 POC ABG pO2 ABG pO2 ABG HCO3 ABG O2 Saturation ABG Base Excess ABG Hemoglobin VBG pH Oxyhemoglobin Sodium Potassium Chloride Carbon Dioxide BUN Creatinine Glucose POC Glucose 289 H 265 H 232 H Lactic Acid Calcium Phosphorus Magnesium Iron TIBC Direct Bilirubin AST ALT Alkaline Phosphatase Total Creatine Kinase CK-MB (CK-2) C-Reactive Protein Total Protein Albumin Vitamin B12 Urine WBC (Auto) Salicylates Acetaminophen Miscellaneous Test Crossmatch 04/21/19 04/21/19 04/21/19 00:02 05:13 12:41 WBC RBC Hgb Hct MCV MCH MCHC RDW Plt Count Lymph % (Auto) [place] % (Auto) Lymph # Seg Neutrophils % Seg Neuts % (Manual) Lymphocytes % (Manual) Nucleated RBC % Seg Neutrophils # Seg Neutrophils # Man Lymphocytes # (Manual) Monocytes # (Manual) PT INR APTT D-Dimer POC ABG pH ABG pH POC ABG pCO2 POC ABG pO2 ABG pO2 ABG HCO3 ABG O2 Saturation ABG Base Excess ABG Hemoglobin VBG pH Oxyhemoglobin Sodium Potassium Chloride Carbon Dioxide BUN Creatinine Glucose POC Glucose 126 H 233 H 205 H Lactic Acid Calcium Phosphorus Magnesium Iron TIBC Direct Bilirubin AST ALT Alkaline Phosphatase Total Creatine Kinase CK-MB (CK-2) C-Reactive Protein Total Protein Albumin Vitamin B12 Urine WBC (Auto) Salicylates Acetaminophen Miscellaneous Test Crossmatch 04/21/19 04/22/19 04/22/19 23:42 03:57 03:57 WBC 11.5 H RBC 3.44 L Hgb Hct MCV MCH MCHC RDW 16.3 H Plt Count 510 H Lymph % (Auto) [place] % (Auto) Lymph # Seg Neutrophils % Seg Neuts % (Manual) Lymphocytes % (Manual) Nucleated RBC % Seg Neutrophils # Seg Neutrophils # Man Lymphocytes # (Manual) Monocytes # (Manual) PT INR APTT D-Dimer POC ABG pH ABG pH POC ABG pCO2 POC ABG pO2 ABG pO2 ABG HCO3 ABG O2 Saturation ABG Base Excess ABG Hemoglobin VBG pH Oxyhemoglobin Sodium Potassium Chloride 96.3 L Carbon Dioxide BUN Creatinine 0.2 L Glucose 333 H POC Glucose 149 H Lactic Acid Calcium Phosphorus Magnesium Iron TIBC Direct Bilirubin AST 60 H ALT Alkaline Phosphatase 204 H Total Creatine Kinase CK-MB (CK-2) C-Reactive Protein Total Protein Albumin 3.1 L Vitamin B12 Urine WBC (Auto) Salicylates Acetaminophen Miscellaneous Test Crossmatch 04/22/19 04/22/19 04/22/19 05:18 12:03 18:17 WBC RBC Hgb Hct MCV MCH MCHC RDW Plt Count Lymph % (Auto) [place] % (Auto) Lymph # Seg Neutrophils % Seg Neuts % (Manual) Lymphocytes % (Manual) Nucleated RBC % Seg Neutrophils # Seg Neutrophils # Man Lymphocytes # (Manual) Monocytes # (Manual) PT INR APTT D-Dimer POC ABG pH ABG pH POC ABG pCO2 POC ABG pO2 ABG pO2 ABG HCO3 ABG O2 Saturation ABG Base Excess ABG Hemoglobin VBG pH Oxyhemoglobin Sodium Potassium Chloride Carbon Dioxide BUN Creatinine Glucose POC Glucose 345 H 308 H 169 H Lactic Acid Calcium Phosphorus Magnesium Iron TIBC Direct Bilirubin AST ALT Alkaline Phosphatase Total Creatine Kinase CK-MB (CK-2) C-Reactive Protein Total Protein Albumin Vitamin B12 Urine WBC (Auto) Salicylates Acetaminophen Miscellaneous Test Crossmatch 04/23/19 04/23/19 04/23/19 00:14 05:43 11:15 WBC RBC Hgb Hct MCV MCH MCHC RDW Plt Count Lymph % (Auto) [place] % (Auto) Lymph # Seg Neutrophils % Seg Neuts % (Manual) Lymphocytes % (Manual) Nucleated RBC % Seg Neutrophils # Seg Neutrophils # Man Lymphocytes # (Manual) Monocytes # (Manual) PT INR APTT D-Dimer POC ABG pH ABG pH POC ABG pCO2 POC ABG pO2 ABG pO2 ABG HCO3 ABG O2 Saturation ABG Base Excess ABG Hemoglobin VBG pH Oxyhemoglobin Sodium Potassium Chloride Carbon Dioxide BUN Creatinine Glucose POC Glucose 192 H 260 H 186 H Lactic Acid Calcium Phosphorus Magnesium Iron TIBC Direct Bilirubin AST ALT Alkaline Phosphatase Total Creatine Kinase CK-MB (CK-2) C-Reactive Protein Total Protein Albumin Vitamin B12 Urine WBC (Auto) Salicylates Acetaminophen Miscellaneous Test Crossmatch 04/23/19 04/23/19 04/24/19 15:44 21:30 00:09 WBC RBC Hgb Hct MCV MCH MCHC RDW Plt Count Lymph % (Auto) [place] % (Auto) Lymph # Seg Neutrophils % Seg Neuts % (Manual) Lymphocytes % (Manual) Nucleated RBC % Seg Neutrophils # Seg Neutrophils # Man Lymphocytes # (Manual) Monocytes # (Manual) PT INR APTT D-Dimer POC ABG pH ABG pH POC ABG pCO2 POC ABG pO2 ABG pO2 ABG HCO3 ABG O2 Saturation ABG Base Excess ABG Hemoglobin VBG pH Oxyhemoglobin Sodium Potassium Chloride Carbon Dioxide BUN Creatinine Glucose POC Glucose 164 H 407 H 280 H Lactic Acid Calcium Phosphorus Magnesium Iron TIBC Direct Bilirubin AST ALT Alkaline Phosphatase Total Creatine Kinase CK-MB (CK-2) C-Reactive Protein Total Protein Albumin Vitamin B12 Urine WBC (Auto) Salicylates Acetaminophen Miscellaneous Test Crossmatch 04/24/19 04/24/19 04/24/19 06:01 06:39 14:51 WBC RBC Hgb Hct MCV MCH MCHC RDW Plt Count Lymph % (Auto) [place] % (Auto) Lymph # Seg Neutrophils % Seg Neuts % (Manual) Lymphocytes % (Manual) Nucleated RBC % Seg Neutrophils # Seg Neutrophils # Man Lymphocytes # (Manual) Monocytes # (Manual) PT INR APTT D-Dimer POC ABG pH ABG pH POC ABG pCO2 POC ABG pO2 ABG pO2 ABG HCO3 ABG O2 Saturation ABG Base Excess ABG Hemoglobin VBG pH Oxyhemoglobin Sodium Potassium Chloride Carbon Dioxide BUN Creatinine Glucose POC Glucose 65 L 125 H 207 H Lactic Acid Calcium Phosphorus Magnesium Iron TIBC Direct Bilirubin AST ALT Alkaline Phosphatase Total Creatine Kinase CK-MB (CK-2) C-Reactive Protein Total Protein Albumin Vitamin B12 Urine WBC (Auto) Salicylates Acetaminophen Miscellaneous Test Crossmatch 04/24/19 04/25/19 04/25/19 18:03 01:46 05:56 WBC RBC Hgb Hct MCV MCH MCHC RDW Plt Count Lymph % (Auto) [place] % (Auto) Lymph # Seg Neutrophils % Seg Neuts % (Manual) Lymphocytes % (Manual) Nucleated RBC % Seg Neutrophils # Seg Neutrophils # Man Lymphocytes # (Manual) Monocytes # (Manual) PT INR APTT D-Dimer POC ABG pH ABG pH POC ABG pCO2 POC ABG pO2 ABG pO2 ABG HCO3 ABG O2 Saturation ABG Base Excess ABG Hemoglobin VBG pH Oxyhemoglobin Sodium Potassium Chloride Carbon Dioxide BUN Creatinine Glucose POC Glucose 140 H 125 H 208 H Lactic Acid Calcium Phosphorus Magnesium Iron TIBC Direct Bilirubin AST ALT Alkaline Phosphatase Total Creatine Kinase CK-MB (CK-2) C-Reactive Protein Total Protein Albumin Vitamin B12 Urine WBC (Auto) Salicylates Acetaminophen Miscellaneous Test Crossmatch 04/25/19 04/25/19 04/25/19 08:12 13:06 18:04 WBC RBC Hgb Hct MCV MCH MCHC RDW Plt Count Lymph % (Auto) [place] % (Auto) Lymph # Seg Neutrophils % Seg Neuts % (Manual) Lymphocytes % (Manual) Nucleated RBC % Seg Neutrophils # Seg Neutrophils # Man Lymphocytes # (Manual) Monocytes # (Manual) PT INR APTT D-Dimer POC ABG pH ABG pH POC ABG pCO2 POC ABG pO2 ABG pO2 ABG HCO3 ABG O2 Saturation ABG Base Excess ABG Hemoglobin VBG pH Oxyhemoglobin Sodium Potassium Chloride Carbon Dioxide BUN Creatinine Glucose POC Glucose 127 H 147 H 340 H Lactic Acid Calcium Phosphorus Magnesium Iron TIBC Direct Bilirubin AST ALT Alkaline Phosphatase Total Creatine Kinase CK-MB (CK-2) C-Reactive Protein Total Protein Albumin Vitamin B12 Urine WBC (Auto) Salicylates Acetaminophen Miscellaneous Test Crossmatch 04/26/19 04/26/19 04/26/19 00:16 05:15 11:26 WBC RBC Hgb Hct MCV MCH MCHC RDW Plt Count Lymph % (Auto) [place] % (Auto) Lymph # Seg Neutrophils % Seg Neuts % (Manual) Lymphocytes % (Manual) Nucleated RBC % Seg Neutrophils # Seg Neutrophils # Man Lymphocytes # (Manual) Monocytes # (Manual) PT INR APTT D-Dimer POC ABG pH ABG pH POC ABG pCO2 POC ABG pO2 ABG pO2 ABG HCO3 ABG O2 Saturation ABG Base Excess ABG Hemoglobin VBG pH Oxyhemoglobin Sodium Potassium Chloride Carbon Dioxide BUN Creatinine Glucose POC Glucose 137 H 136 H 365 H Lactic Acid Calcium Phosphorus Magnesium Iron TIBC Direct Bilirubin AST ALT Alkaline Phosphatase Total Creatine Kinase CK-MB (CK-2) C-Reactive Protein Total Protein Albumin Vitamin B12 Urine WBC (Auto) Salicylates Acetaminophen Miscellaneous Test Crossmatch 04/26/19 04/26/19 04/27/19 18:03 21:30 06:14 WBC RBC Hgb Hct MCV MCH MCHC RDW Plt Count Lymph % (Auto) [place] % (Auto) Lymph # Seg Neutrophils % Seg Neuts % (Manual) Lymphocytes % (Manual) Nucleated RBC % Seg Neutrophils # Seg Neutrophils # Man Lymphocytes # (Manual) Monocytes # (Manual) PT INR APTT D-Dimer POC ABG pH ABG pH POC ABG pCO2 POC ABG pO2 ABG pO2 ABG HCO3 ABG O2 Saturation ABG Base Excess ABG Hemoglobin VBG pH Oxyhemoglobin Sodium Potassium Chloride Carbon Dioxide BUN Creatinine Glucose POC Glucose 124 H 231 H 199 H Lactic Acid Calcium Phosphorus Magnesium Iron TIBC Direct Bilirubin AST ALT Alkaline Phosphatase Total Creatine Kinase CK-MB (CK-2) C-Reactive Protein Total Protein Albumin Vitamin B12 Urine WBC (Auto) Salicylates Acetaminophen Miscellaneous Test Crossmatch 04/27/19 04/27/19 04/28/19 16:39 22:22 05:55 WBC RBC Hgb Hct MCV MCH MCHC RDW Plt Count Lymph % (Auto) [place] % (Auto) Lymph # Seg Neutrophils % Seg Neuts % (Manual) Lymphocytes % (Manual) Nucleated RBC % Seg Neutrophils # Seg Neutrophils # Man Lymphocytes # (Manual) Monocytes # (Manual) PT INR APTT D-Dimer POC ABG pH ABG pH POC ABG pCO2 POC ABG pO2 ABG pO2 ABG HCO3 ABG O2 Saturation ABG Base Excess ABG Hemoglobin VBG pH Oxyhemoglobin Sodium Potassium Chloride Carbon Dioxide BUN Creatinine Glucose POC Glucose 171 H 183 H 207 H Lactic Acid Calcium Phosphorus Magnesium Iron TIBC Direct Bilirubin AST ALT Alkaline Phosphatase Total Creatine Kinase CK-MB (CK-2) C-Reactive Protein Total Protein Albumin Vitamin B12 Urine WBC (Auto) Salicylates Acetaminophen Miscellaneous Test Crossmatch 04/28/19 04/28/19 04/29/19 12:30 17:07 00:03 WBC RBC Hgb Hct MCV MCH MCHC RDW Plt Count Lymph % (Auto) [place] % (Auto) Lymph # Seg Neutrophils % Seg Neuts % (Manual) Lymphocytes % (Manual) Nucleated RBC % Seg Neutrophils # Seg Neutrophils # Man Lymphocytes # (Manual) Monocytes # (Manual) PT INR APTT D-Dimer POC ABG pH ABG pH POC ABG pCO2 POC ABG pO2 ABG pO2 ABG HCO3 ABG O2 Saturation ABG Base Excess ABG Hemoglobin VBG pH Oxyhemoglobin Sodium Potassium Chloride Carbon Dioxide BUN Creatinine Glucose POC Glucose 199 H 233 H 217 H Lactic Acid Calcium Phosphorus Magnesium Iron TIBC Direct Bilirubin AST ALT Alkaline Phosphatase Total Creatine Kinase CK-MB (CK-2) C-Reactive Protein Total Protein Albumin Vitamin B12 Urine WBC (Auto) Salicylates Acetaminophen Miscellaneous Test Crossmatch 04/29/19 04/29/19 04/29/19 05:51 09:43 09:43 WBC RBC 3.36 L Hgb Hct MCV MCH MCHC RDW 16.3 H Plt Count Lymph % (Auto) 11.1 L [place] % (Auto) Lymph # Seg Neutrophils % 81.4 H Seg Neuts % (Manual) Lymphocytes % (Manual) Nucleated RBC % Seg Neutrophils # 9.0 H Seg Neutrophils # Man Lymphocytes # (Manual) Monocytes # (Manual) PT INR APTT D-Dimer POC ABG pH ABG pH POC ABG pCO2 POC ABG pO2 ABG pO2 ABG HCO3 ABG O2 Saturation ABG Base Excess ABG Hemoglobin VBG pH Oxyhemoglobin Sodium Potassium Chloride Carbon Dioxide BUN 21 H Creatinine 0.3 L Glucose 316 H POC Glucose 149 H Lactic Acid Calcium Phosphorus Magnesium Iron TIBC Direct Bilirubin AST ALT Alkaline Phosphatase Total Creatine Kinase CK-MB (CK-2) C-Reactive Protein Total Protein Albumin Vitamin B12 Urine WBC (Auto) Salicylates Acetaminophen Miscellaneous Test Crossmatch 04/29/19 04/29/19 04/29/19 12:28 18:02 23:49 WBC RBC Hgb Hct MCV MCH MCHC RDW Plt Count Lymph % (Auto) [place] % (Auto) Lymph # Seg Neutrophils % Seg Neuts % (Manual) Lymphocytes % (Manual) Nucleated RBC % Seg Neutrophils # Seg Neutrophils # Man Lymphocytes # (Manual) Monocytes # (Manual) PT INR APTT D-Dimer POC ABG pH ABG pH POC ABG pCO2 POC ABG pO2 ABG pO2 ABG HCO3 ABG O2 Saturation ABG Base Excess ABG Hemoglobin VBG pH Oxyhemoglobin Sodium Potassium Chloride Carbon Dioxide BUN Creatinine Glucose POC Glucose 368 H 185 H 137 H Lactic Acid Calcium Phosphorus Magnesium Iron TIBC Direct Bilirubin AST ALT Alkaline Phosphatase Total Creatine Kinase CK-MB (CK-2) C-Reactive Protein Total Protein Albumin Vitamin B12 Urine WBC (Auto) Salicylates Acetaminophen Miscellaneous Test Crossmatch 04/30/19 04/30/19 04/30/19 05:56 09:08 09:08 WBC RBC 3.48 L Hgb Hct MCV MCH MCHC RDW 15.9 H Plt Count Lymph % (Auto) [place] % (Auto) Lymph # Seg Neutrophils % 73.7 H Seg Neuts % (Manual) Lymphocytes % (Manual) Nucleated RBC % Seg Neutrophils # Seg Neutrophils # Man Lymphocytes # (Manual) Monocytes # (Manual) PT INR APTT D-Dimer POC ABG pH ABG pH POC ABG pCO2 POC ABG pO2 ABG pO2 ABG HCO3 ABG O2 Saturation ABG Base Excess ABG Hemoglobin VBG pH Oxyhemoglobin Sodium Potassium Chloride Carbon Dioxide BUN 25 H Creatinine 0.3 L Glucose 290 H POC Glucose 318 H Lactic Acid Calcium Phosphorus Magnesium Iron TIBC Direct Bilirubin AST ALT Alkaline Phosphatase Total Creatine Kinase CK-MB (CK-2) C-Reactive Protein Total Protein Albumin Vitamin B12 Urine WBC (Auto) Salicylates Acetaminophen Miscellaneous Test Crossmatch 04/30/19 04/30/19 04/30/19 11:32 17:19 21:36 WBC RBC Hgb Hct MCV MCH MCHC RDW Plt Count Lymph % (Auto) [place] % (Auto) Lymph # Seg Neutrophils % Seg Neuts % (Manual) Lymphocytes % (Manual) Nucleated RBC % Seg Neutrophils # Seg Neutrophils # Man Lymphocytes # (Manual) Monocytes # (Manual) PT INR APTT D-Dimer POC ABG pH ABG pH POC ABG pCO2 POC ABG pO2 ABG pO2 ABG HCO3 ABG O2 Saturation ABG Base Excess ABG Hemoglobin VBG pH Oxyhemoglobin Sodium Potassium Chloride Carbon Dioxide BUN Creatinine Glucose POC Glucose 225 H 110 H 371 H Lactic Acid Calcium Phosphorus Magnesium Iron TIBC Direct Bilirubin AST ALT Alkaline Phosphatase Total Creatine Kinase CK-MB (CK-2) C-Reactive Protein Total Protein Albumin Vitamin B12 Urine WBC (Auto) Salicylates Acetaminophen Miscellaneous Test Crossmatch 04/30/19 05/01/19 05/01/19 Unknown 05:29 11:44 WBC RBC Hgb Hct MCV MCH MCHC RDW Plt Count Lymph % (Auto) [place] % (Auto) Lymph # Seg Neutrophils % Seg Neuts % (Manual) Lymphocytes % (Manual) Nucleated RBC % Seg Neutrophils # Seg Neutrophils # Man Lymphocytes # (Manual) Monocytes # (Manual) PT INR APTT D-Dimer POC ABG pH ABG pH POC ABG pCO2 POC ABG pO2 ABG pO2 ABG HCO3 ABG O2 Saturation ABG Base Excess ABG Hemoglobin VBG pH Oxyhemoglobin Sodium Potassium Chloride Carbon Dioxide BUN Creatinine Glucose POC Glucose 386 H 227 H Lactic Acid Calcium Phosphorus Magnesium Iron TIBC Direct Bilirubin AST ALT Alkaline Phosphatase Total Creatine Kinase CK-MB (CK-2) C-Reactive Protein Total Protein Albumin Vitamin B12 Urine WBC (Auto) 17.0 H Salicylates Acetaminophen Miscellaneous Test Crossmatch 05/02/19 05/02/19 05/03/19 05:51 11:21 00:25 WBC RBC Hgb Hct MCV MCH MCHC RDW Plt Count Lymph % (Auto) [place] % (Auto) Lymph # Seg Neutrophils % Seg Neuts % (Manual) Lymphocytes % (Manual) Nucleated RBC % Seg Neutrophils # Seg Neutrophils # Man Lymphocytes # (Manual) Monocytes # (Manual) PT INR APTT D-Dimer POC ABG pH ABG pH POC ABG pCO2 POC ABG pO2 ABG pO2 ABG HCO3 ABG O2 Saturation ABG Base Excess ABG Hemoglobin VBG pH Oxyhemoglobin Sodium Potassium Chloride Carbon Dioxide BUN Creatinine Glucose POC Glucose 280 H 191 H 262 H Lactic Acid Calcium Phosphorus Magnesium Iron TIBC Direct Bilirubin AST ALT Alkaline Phosphatase Total Creatine Kinase CK-MB (CK-2) C-Reactive Protein Total Protein Albumin Vitamin B12 Urine WBC (Auto) Salicylates Acetaminophen Miscellaneous Test Crossmatch 05/03/19 05/03/19 05/03/19 04:57 04:57 06:20 WBC RBC 3.45 L Hgb Hct MCV MCH MCHC RDW 15.5 H Plt Count Lymph % (Auto) [place] % (Auto) 7.6 H Lymph # Seg Neutrophils % Seg Neuts % (Manual) Lymphocytes % (Manual) Nucleated RBC % Seg Neutrophils # Seg Neutrophils # Man Lymphocytes # (Manual) Monocytes # (Manual) PT INR APTT D-Dimer POC ABG pH ABG pH POC ABG pCO2 POC ABG pO2 ABG pO2 ABG HCO3 ABG O2 Saturation ABG Base Excess ABG Hemoglobin VBG pH Oxyhemoglobin Sodium Potassium Chloride Carbon Dioxide BUN 23 H Creatinine 0.2 L Glucose 101 H POC Glucose 131 H Lactic Acid Calcium Phosphorus Magnesium Iron TIBC Direct Bilirubin AST ALT Alkaline Phosphatase Total Creatine Kinase CK-MB (CK-2) C-Reactive Protein Total Protein Albumin Vitamin B12 Urine WBC (Auto) Salicylates Acetaminophen Miscellaneous Test Crossmatch 05/03/19 05/04/19 05/04/19 23:58 12:05 16:56 WBC RBC Hgb Hct MCV MCH MCHC RDW Plt Count Lymph % (Auto) [place] % (Auto) Lymph # Seg Neutrophils % Seg Neuts % (Manual) Lymphocytes % (Manual) Nucleated RBC % Seg Neutrophils # Seg Neutrophils # Man Lymphocytes # (Manual) Monocytes # (Manual) PT INR APTT D-Dimer POC ABG pH ABG pH POC ABG pCO2 POC ABG pO2 ABG pO2 ABG HCO3 ABG O2 Saturation ABG Base Excess ABG Hemoglobin VBG pH Oxyhemoglobin Sodium Potassium Chloride Carbon Dioxide BUN Creatinine Glucose POC Glucose 160 H 128 H 116 H Lactic Acid Calcium Phosphorus Magnesium Iron TIBC Direct Bilirubin AST ALT Alkaline Phosphatase Total Creatine Kinase CK-MB (CK-2) C-Reactive Protein Total Protein Albumin Vitamin B12 Urine WBC (Auto) Salicylates Acetaminophen Miscellaneous Test Crossmatch 05/04/19 05/05/19 05/05/19 23:31 03:24 11:43 WBC RBC Hgb Hct MCV MCH MCHC RDW Plt Count Lymph % (Auto) [place] % (Auto) Lymph # Seg Neutrophils % Seg Neuts % (Manual) Lymphocytes % (Manual) Nucleated RBC % Seg Neutrophils # Seg Neutrophils # Man Lymphocytes # (Manual) Monocytes # (Manual) PT INR APTT D-Dimer POC ABG pH ABG pH POC ABG pCO2 POC ABG pO2 ABG pO2 ABG HCO3 ABG O2 Saturation ABG Base Excess ABG Hemoglobin VBG pH Oxyhemoglobin Sodium Potassium Chloride Carbon Dioxide BUN Creatinine Glucose POC Glucose 204 H 194 H 202 H Lactic Acid Calcium Phosphorus Magnesium Iron TIBC Direct Bilirubin AST ALT Alkaline Phosphatase Total Creatine Kinase CK-MB (CK-2) C-Reactive Protein Total Protein Albumin Vitamin B12 Urine WBC (Auto) Salicylates Acetaminophen Miscellaneous Test Crossmatch 05/05/19 05/06/19 05/06/19 21:07 05:16 17:08 WBC RBC Hgb Hct MCV MCH MCHC RDW Plt Count Lymph % (Auto) [place] % (Auto) Lymph # Seg Neutrophils % Seg Neuts % (Manual) Lymphocytes % (Manual) Nucleated RBC % Seg Neutrophils # Seg Neutrophils # Man Lymphocytes # (Manual) Monocytes # (Manual) PT INR APTT D-Dimer POC ABG pH ABG pH POC ABG pCO2 POC ABG pO2 ABG pO2 ABG HCO3 ABG O2 Saturation ABG Base Excess ABG Hemoglobin VBG pH Oxyhemoglobin Sodium Potassium Chloride Carbon Dioxide BUN Creatinine Glucose POC Glucose 128 H 239 H 64 L Lactic Acid Calcium Phosphorus Magnesium Iron TIBC Direct Bilirubin AST ALT Alkaline Phosphatase Total Creatine Kinase CK-MB (CK-2) C-Reactive Protein Total Protein Albumin Vitamin B12 Urine WBC (Auto) Salicylates Acetaminophen Miscellaneous Test Crossmatch 05/07/19 05/07/19 05/07/19 05:12 08:00 12:13 WBC RBC Hgb Hct MCV MCH MCHC RDW Plt Count Lymph % (Auto) [place] % (Auto) Lymph # Seg Neutrophils % Seg Neuts % (Manual) Lymphocytes % (Manual) Nucleated RBC % Seg Neutrophils # Seg Neutrophils # Man Lymphocytes # (Manual) Monocytes # (Manual) PT INR APTT D-Dimer POC ABG pH ABG pH POC ABG pCO2 POC ABG pO2 ABG pO2 ABG HCO3 ABG O2 Saturation ABG Base Excess ABG Hemoglobin VBG pH Oxyhemoglobin Sodium Potassium Chloride Carbon Dioxide BUN Creatinine Glucose POC Glucose 315 H 193 H 129 H Lactic Acid Calcium Phosphorus Magnesium Iron TIBC Direct Bilirubin AST ALT Alkaline Phosphatase Total Creatine Kinase CK-MB (CK-2) C-Reactive Protein Total Protein Albumin Vitamin B12 Urine WBC (Auto) Salicylates Acetaminophen Miscellaneous Test Crossmatch 05/07/19 05/07/19 05/08/19 17:00 22:58 00:38 WBC RBC Hgb Hct MCV MCH MCHC RDW Plt Count Lymph % (Auto) [place] % (Auto) Lymph # Seg Neutrophils % Seg Neuts % (Manual) Lymphocytes % (Manual) Nucleated RBC % Seg Neutrophils # Seg Neutrophils # Man Lymphocytes # (Manual) Monocytes # (Manual) PT INR APTT D-Dimer POC ABG pH ABG pH POC ABG pCO2 POC ABG pO2 ABG pO2 ABG HCO3 ABG O2 Saturation ABG Base Excess ABG Hemoglobin VBG pH Oxyhemoglobin Sodium Potassium Chloride Carbon Dioxide BUN Creatinine Glucose POC Glucose 331 H 341 H 369 H Lactic Acid Calcium Phosphorus Magnesium Iron TIBC Direct Bilirubin AST ALT Alkaline Phosphatase Total Creatine Kinase CK-MB (CK-2) C-Reactive Protein Total Protein Albumin Vitamin B12 Urine WBC (Auto) Salicylates Acetaminophen Miscellaneous Test Crossmatch 05/08/19 05/08/19 05/08/19 06:06 07:58 12:38 WBC RBC Hgb Hct MCV MCH MCHC RDW Plt Count Lymph % (Auto) [place] % (Auto) Lymph # Seg Neutrophils % Seg Neuts % (Manual) Lymphocytes % (Manual) Nucleated RBC % Seg Neutrophils # Seg Neutrophils # Man Lymphocytes # (Manual) Monocytes # (Manual) PT INR APTT D-Dimer POC ABG pH ABG pH POC ABG pCO2 POC ABG pO2 ABG pO2 ABG HCO3 ABG O2 Saturation ABG Base Excess ABG Hemoglobin VBG pH Oxyhemoglobin Sodium Potassium Chloride Carbon Dioxide BUN Creatinine Glucose POC Glucose 191 H 165 H 296 H Lactic Acid Calcium Phosphorus Magnesium Iron TIBC Direct Bilirubin AST ALT Alkaline Phosphatase Total Creatine Kinase CK-MB (CK-2) C-Reactive Protein Total Protein Albumin Vitamin B12 Urine WBC (Auto) Salicylates Acetaminophen Miscellaneous Test Crossmatch Allied health notes reviewed: nursing
[2019-05-08] MEDS: TRANSDERM-SCOP TD SCH (13:25)
[2019-05-08] MEDS: DURAGESIC TD SCH (15:58)
--- NOTE | 2019-05-08 17:30 | Progress Note ---
Assessment and Plan Uncontrolled DM type 1 with hyperglycemia - cont. basal insulin Lantus - cont. SSI - adjust insulin dose as needed to prevent hypo/hyperglycemia Acute respiratory failure s/p intubated, off vent - s/p trach and peg, on 5 L of oxygen - Tracheostomy re-adjusted on 04/17/19 - Pulm following, on nebs - Aspiration precautions Acute anoxic encephalopathy, POA - from cardiac arrest - MR concerning for anoxic Brain injury Cardiac arrest s/p resuscitation - likely 2/2 severe hyperglycemia - preserved EF on 2D echo Generalized Anasacara, stable now -Given a dose of Bumex s/p severe DKA, resolved - BG was 2200 on admission Shock hypotensive +/- sepsis - resolved Now off pressors. Was on vasopressin, Levophed, Phenylephrine Sepsis with possible aspiration PNA - evident on CXR on admission with left sided infiltrates - Competed abx - Leucocytosis and thrombocytosis are likely reactive from hepatic subcapsular hematoma -liver lesion not consistent with infection per ID UTI, Patient had low-grade temp 04/30/19 -UA suggestive of UTI -Urine culture showed enterococcus faecalis, and hanks sensitive. -Patient started on Rocephin on 05/01/19 - completed Head lice - multiple dosing of Permethin given, resolved Acute renal failure, likely vasomotor nephropathy - resolved Anemia, acute on chronic - no sign of blood loss - s/p 2 Units PRBC transfused Hyperkalemia, resolved with fluid and insulin Hypernatremia Resolved hypokalemia, resolved Shock liver with elevated LFT and Coagulopathy - due to cardiac arrest and hypotension - cont to monitor Liver lesion - ID Physician following - Discontinued abx, not consistent with infection as noted above Hypermagnesemia - monitor levels as needed Hyperphosphatemia -cont to monitor, improved Stage 1 sacral ulcer, poa - upper ext blisters - pressure ulcer prevention strategies - wound care VTE Prophylaxis with Lovenox Poor prognosis DNR status Disposition: continue inpatient care, await placement in [place], [place] property disposal manager in contact with the family for 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 Her last well-known time was 10:30 in the morning of presentation, she was traveling with a friend, she was unresponsive in the back seat. EMS was called, CPR was started and continued here in the emergency room. Patient was intubated in the ER, noted hypotensive started on dobutamine, epinephrine and Levophed drip, given IV fluids, found to be in DKA with BG ~2200, several metabolic derangements - placed on insulin drip and admitted to ICU. BP improved and she was weaned off pressors. Pt off pressors and extubated. Transferred to floor awaiting placement Subjective Date of service: 05/08/19 Principal diagnosis: Ac Hypoxemic Resp Failure; DKA; Severe sepsis with shock; ANGELICA Interval history: Patient seen and examined Patient remained on trach with t-piece no family members around, nonverbal and doesnot follow commend discussed with RN at bedside with plan of care Objective - Exam Narrative Exam: General appearance: Present: nonverbal, on trach - EENT Eyes: no congestion ENT: clear oral mucosa Ears: bilateral: normal - Neck Neck: no masses or JVD, no carotid bruits - Respiratory Respiratory effort: on trach w/o vent Respiratory: bilateral: CTA - Cardiovascular Rhythm: other (tachycardic) Heart Sounds: Present: S1 & S2. Absent: gallop, rub Extremities: pulses intact, No edema, normal color - Gastrointestinal General gastrointestinal: Present: soft, non-distended, normal bowel sounds - Integumentary Integumentary: clear, warm, dry - Musculoskeletal Musculoskeletal: other (no joint swelling) - Neurologic Neurologic: other (unable to assess), does not follow commend - Psychiatric Psychiatric: other (unable to assess) - Constitutional Vitals: Vital Signs - 12hr 05/08/19 05/08/19 05/08/19 05:34 08:00 09:05 Temperature 99.6 F Pulse Rate 126 H Blood Pressure 141/98 O2 Sat by Pulse 95 94 Oximetry O2 Sat by Pulse 94 Oximetry [ Assessment] 05/08/19 11:16 Temperature Pulse Rate 127 H Blood Pressure 123/91 O2 Sat by Pulse Oximetry O2 Sat by Pulse Oximetry [ Assessment] - Labs CBC & Chem 7: 05/09/19 04:30 05/09/19 04:30 Labs: Abnormal lab results 05/07/19 05/07/19 05/08/19 Range/Units 17:00 22:58 00:38 POC Glucose 331 H 341 H 369 H (70-105) 05/08/19 05/08/19 05/08/19 Range/Units 06:06 07:58 12:38 POC Glucose 191 H 165 H 296 H (70-105)
[2019-05-08] MEDS: LANTUS SUB-Q SCH (21:56)
[2019-05-09] MEDS: HumaLOG SUB-Q SCH ×4 (00:43→18:04)
[2019-05-09 05:29] LABS: Basophils % (Auto) 0.8 % (0.0-1.8); Eosinophils # (Auto) 0.1 K/mm3 (0.0-0.4); Eosinophils % (Auto) 1.9 % (0.0-4.3); Hemoglobin 11.6 gm/dl (10.1-14.3); Lymphocytes # (Auto) 1.6 K/mm3 (1.2-5.4); Lymphocytes % (Auto) 27.3 % (13.4-35.0); Mean Corpuscular HGB Conc 33 % (30-34); Mean Corpuscular Volume 95 fl (79-97); Monocytes # (Auto) 0.6 K/mm3 (0.0-0.8); Monocytes % (Auto) 10.1 % (0.0-7.3); Platelet Count 380 K/mm3 (140-440); Red Cell Distribution Width 15.1 % (13.2-15.2)
[2019-05-09 05:48] LABS: BUN/Creatinine Ratio 95; Blood Urea Nitrogen 19 mg/dL (7-17); Calcium 9.8 mg/dL (8.4-10.2); Hemolysis Index 0
[2019-05-09] MEDS: ROBINUL FEEDTUBE SCH ×3 (08:46→20:54)
[2019-05-09] MEDS: METOPROLOL PO SCH ×2 (09:03→22:18)
[2019-05-09] MEDS: ENOXAPARIN SUB-Q SCH (09:03)
[2019-05-09] MEDS: KEPPRA PO SCH ×2 (09:04→22:17)
[2019-05-09] MEDS: PEPCID PO SCH ×2 (09:04→22:17)
--- NOTE | 2019-05-09 13:20 | Progress Note ---
Assessment and Plan Uncontrolled DM type 1 with hyperglycemia - cont. basal insulin Lantus - cont. SSI - adjust insulin dose as needed to prevent hypo/hyperglycemia Acute respiratory failure s/p intubated, off vent - s/p trach and peg, on 5 L of oxygen - Tracheostomy re-adjusted on 04/17/19 - Pulm following, on nebs - Aspiration precautions Acute anoxic encephalopathy, POA - from cardiac arrest - MR concerning for anoxic Brain injury Cardiac arrest s/p resuscitation - likely 2/2 severe hyperglycemia - preserved EF on 2D echo Generalized Anasacara, stable now -Given a dose of Bumex s/p severe DKA, resolved - BG was 2200 on admission Shock hypotensive +/- sepsis - resolved Now off pressors. Was on vasopressin, Levophed, Phenylephrine Sepsis with possible aspiration PNA - evident on CXR on admission with left sided infiltrates - Competed abx - Leucocytosis and thrombocytosis are likely reactive from hepatic subcapsular hematoma -liver lesion not consistent with infection per ID UTI, Patient had low-grade temp 04/30/19 -UA suggestive of UTI -Urine culture showed enterococcus faecalis, and hanks sensitive. -Patient started on Rocephin on 05/01/19 - completed Head lice - multiple dosing of Permethin given, resolved Acute renal failure, likely vasomotor nephropathy - resolved Anemia, acute on chronic - no sign of blood loss - s/p 2 Units PRBC transfused Hyperkalemia, resolved with fluid and insulin Hypernatremia Resolved hypokalemia, resolved Shock liver with elevated LFT and Coagulopathy - due to cardiac arrest and hypotension - cont to monitor Liver lesion - ID Physician following - Discontinued abx, not consistent with infection as noted above Hypermagnesemia - monitor levels as needed Hyperphosphatemia -cont to monitor, improved Stage 1 sacral ulcer, poa - upper ext blisters - pressure ulcer prevention strategies - wound care VTE Prophylaxis with Lovenox Poor prognosis DNR status Disposition: continue inpatient care, await placement in [place], [place] community services manager in contact with the family for 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 Her last well-known time was 10:30 in the morning of presentation, she was traveling with a friend, she was unresponsive in the back seat. EMS was called, CPR was started and continued here in the emergency room. Patient was intubated in the ER, noted hypotensive started on dobutamine, epinephrine and Levophed drip, given IV fluids, found to be in DKA with BG ~2200, several metabolic derangements - placed on insulin drip and admitted to ICU. BP improved and she was weaned off pressors. Pt off pressors and extubated. Transferred to floor awaiting placement Subjective Date of service: 05/09/19 Principal diagnosis: Ac Hypoxemic Resp Failure; DKA; Severe sepsis with shock; ANGELICA Interval history: Patient seen and examined Patient remained on trach with t-piece no family members around, nonverbal and doesnot follow commend discussed with RN at bedside with plan of care Objective - Exam Narrative Exam: General appearance: Present: nonverbal, on trach - EENT Eyes: no congestion ENT: clear oral mucosa Ears: bilateral: normal - Neck Neck: no masses or JVD, no carotid bruits - Respiratory Respiratory effort: on trach w/o vent Respiratory: bilateral: CTA - Cardiovascular Rhythm: other (tachycardic) Heart Sounds: Present: S1 & S2. Absent: gallop, rub Extremities: pulses intact, No edema, normal color - Gastrointestinal General gastrointestinal: Present: soft, non-distended, normal bowel sounds - Integumentary Integumentary: clear, warm, dry - Musculoskeletal Musculoskeletal: other (no joint swelling) - Neurologic Neurologic: other (unable to assess), does not follow commend - Psychiatric Psychiatric: other (unable to assess) - Constitutional Vitals: Vital Signs - 12hr 05/09/19 05/09/19 05/09/19 07:27 08:00 08:18 Temperature 98.0 F Pulse Rate 119 H Respiratory 22 Rate Blood Pressure 118/81 O2 Sat by Pulse 91 96 Oximetry O2 Sat by Pulse 96 Oximetry [ Assessment] 05/09/19 11:46 Temperature 97.9 F Pulse Rate 105 H Respiratory 16 Rate Blood Pressure 100/74 O2 Sat by Pulse 93 Oximetry O2 Sat by Pulse Oximetry [ Assessment] - Labs CBC & Chem 7: 05/09/19 04:30 05/09/19 04:30 Labs: Abnormal lab results 05/08/19 05/08/19 05/09/19 Range/Units 18:02 21:56 00:18 [place] % (Auto) (0.0-7.3) % BUN (7-17) mg/dL Creatinine (0.7-1.2) mg/dL Glucose (65-100) mg/dL POC Glucose 247 H 212 H 182 H (70-105) 05/09/19 05/09/19 05/09/19 Range/Units 04:30 04:30 05:27 [place] % (Auto) 10.1 H (0.0-7.3) % BUN 19 H (7-17) mg/dL Creatinine 0.2 L (0.7-1.2) mg/dL Glucose 108 H (65-100) mg/dL POC Glucose 115 H (70-105) 05/09/19 Range/Units 11:52 [place] % (Auto) (0.0-7.3) % BUN (7-17) mg/dL Creatinine (0.7-1.2) mg/dL Glucose (65-100) mg/dL POC Glucose 171 H (70-105)
--- NOTE | 2019-05-09 17:43 | Progress Note ---
Assessment and Plan Patients condition same.Patient resting on T tube. Patient sleeping at this time. No acute respiratory distress.. Patient is on T tube, FIO2 28%. O2 saturation 95%.Patient afebrile today and has no leukocytosis. Patient waiting for placement. - Patient Problems (1) Cardiac arrest Current Visit: Yes Status: Acute Plan to address problem: Patient resuscitated. Presently resting on T tube. No acute respiratory distress.; (2) Status post tracheostomy Current Visit: Yes Status: Acute Plan to address problem: Respiratory suctioning. Recommend trach care as per respiratory therapy protocol. (3) DKA, type 1 Current Visit: Yes Status: Acute Qualifiers: Diabetes mellitus complication detail: with coma Qualified Code(s): E10.11 - Type 1 diabetes mellitus with ketoacidosis with coma Plan to address problem: Management as per primary care. (4) Hypotension Current Visit: Yes Status: Acute Qualifiers: Hypotension type: unspecified hypotension type Qualified Code(s): I95.9 - Hypotension, unspecified Plan to address problem: Improved. Recent blood pressure 95/72 (5) Renal failure Current Visit: Yes Status: Acute Qualifiers: Renal failure chronicity: acute Acute renal failure type: unspecified Qualified Code(s): N17.9 - Acute kidney failure, unspecified Plan to address problem: Improved. Management as per primary care and nephrology . Subjective Date of service: 05/09/19 Principal diagnosis: Ac Hypoxemic Resp Failure; DKA; Severe sepsis with shock; ANGELICA Interval history: Patients condition same.Patient resting on T tube. Patient sleeping at this time. No acute respiratory distress.. Patient is on T tube, FIO2 28%. O2 saturation 95%.Patient afebrile today and has no leukocytosis. Patient waiting for placement. Objective Vital Signs - 12hr 05/09/19 05/09/19 05/09/19 07:27 08:00 08:18 Temperature 98.0 F Pulse Rate 119 H Pulse Rate [ Apical] Respiratory 22 Rate Blood Pressure 118/81 O2 Sat by Pulse 91 96 Oximetry O2 Sat by Pulse 96 Oximetry [ Assessment] 05/09/19 05/09/19 05/09/19 11:46 12:00 16:10 Temperature 97.9 F 97.7 F Pulse Rate 105 H 121 H Pulse Rate [ 112 H Apical] Respiratory 16 20 Rate Blood Pressure 100/74 95/72 O2 Sat by Pulse 93 96 95 Oximetry O2 Sat by Pulse Oximetry [ Assessment] Constitutional: no acute distress, other (Patient awake. Not following commands.) Eyes: non-icteric ENT: oropharynx moist Neck: supple, no lymphadenopathy, no JVD, other (midline trach tube) Effort: normal Ascultation: Bilateral: diminished breath sounds, rhonchi Percussion: Bilateral: not dull Cardiovascular: regular rate and rhythm, other (S1,S2) Gastrointestinal: normoactive bowel sounds, soft, non-tender, non-distended, other (PEG tube) Integumentary: normal Extremities: no cyanosis, no edema, pink and warm, pulses normal, no ischemia or petechiae Neurologic: unable to assess (awake, alert, not obeying commands) Psychiatric: other (unable to assess) CBC and BMP: 05/09/19 04:30 05/09/19 04:30 ABG, PT/INR, D-dimer: ABG POC ABG pH 7.565 (7.35-7.45) H 04/19/19 04:35 ABG pH 7.396 pH Units (7.350-7.450) 04/03/19 05:35 POC ABG pCO2 36.2 (35-45) 04/19/19 04:35 ABG pCO2 32.2 mm Hg 04/03/19 05:35 POC ABG pO2 88 (80-105) 04/19/19 04:35 ABG pO2 97.7 mm Hg (80.0-90.0) H 04/03/19 05:35 POC ABG HCO3 32.8 (22-26 mml/L) 04/19/19 04:35 POC ABG Total CO2 34 (23-27mmol/L) 04/19/19 04:35 POC ABG O2 Sat 98 04/19/19 04:35 ABG O2 Saturation 97.6 % (95.0-99.0) 04/03/19 05:35 PT/INR, D-dimer PT 13.9 Sec. (12.2-14.9) 04/01/19 17:14 INR 1.10 (0.87-1.13) 04/01/19 17:14 D-Dimer 4526.86 ng/mlDDU (0-234) H 04/06/19 00:06 Abnormal lab findings: Abnormal Labs 03/29/19 03/29/19 03/29/19 19:11 19:20 19:20 WBC 26.7 H RBC 2.52 L Hgb 8.1 L Hct MCV 148 H MCH MCHC 22 L RDW 18.5 H Plt Count Lymph % (Auto) Eddy % (Auto) Lymph # Seg Neutrophils % Seg Neuts % (Manual) 82.0 H Lymphocytes % (Manual) 7.0 L Nucleated RBC % Seg Neutrophils # Seg Neutrophils # Man 21.9 H Lymphocytes # (Manual) Monocytes # (Manual) 1.9 H PT 21.8 H INR 1.95 H APTT 74.5 H* D-Dimer POC ABG pH ABG pH POC ABG pCO2 POC ABG pO2 ABG pO2 ABG HCO3 ABG O2 Saturation ABG Base Excess ABG Hemoglobin VBG pH Oxyhemoglobin Sodium Potassium Chloride Carbon Dioxide BUN Creatinine Glucose POC Glucose > 500 H Lactic Acid Calcium Phosphorus Magnesium Iron TIBC Direct Bilirubin AST ALT Alkaline Phosphatase Total Creatine Kinase CK-MB (CK-2) C-Reactive Protein Total Protein Albumin Vitamin B12 Urine WBC (Auto) Salicylates Acetaminophen Miscellaneous Test Crossmatch 03/29/19 03/29/19 03/29/19 19:20 19:47 20:59 WBC RBC Hgb Hct MCV MCH MCHC RDW Plt Count Lymph % (Auto) Eddy % (Auto) Lymph # Seg Neutrophils % Seg Neuts % (Manual) Lymphocytes % (Manual) Nucleated RBC % Seg Neutrophils # Seg Neutrophils # Man Lymphocytes # (Manual) Monocytes # (Manual) PT INR APTT D-Dimer POC ABG pH 6.892 L ABG pH POC ABG pCO2 POC ABG pO2 236 H ABG pO2 ABG HCO3 ABG O2 Saturation ABG Base Excess ABG Hemoglobin VBG pH 6.800 L* Oxyhemoglobin Sodium 118 L* Potassium 9.0 H* Chloride 64.5 L Carbon Dioxide 7 L* BUN 53 H Creatinine 2.1 H Glucose 2196 H* POC Glucose Lactic Acid Calcium 12.4 H* Phosphorus Magnesium Iron TIBC Direct Bilirubin AST 3900 H ALT 1034 H Alkaline Phosphatase 316 H Total Creatine Kinase CK-MB (CK-2) C-Reactive Protein Total Protein 5.1 L Albumin 2.8 L Vitamin B12 Urine WBC (Auto) Salicylates Acetaminophen Miscellaneous Test Crossmatch 03/29/19 03/29/19 03/29/19 22:45 22:45 22:45 WBC RBC Hgb Hct MCV MCH MCHC RDW Plt Count Lymph % (Auto) Eddy % (Auto) Lymph # Seg Neutrophils % Seg Neuts % (Manual) Lymphocytes % (Manual) Nucleated RBC % Seg Neutrophils # Seg Neutrophils # Man Lymphocytes # (Manual) Monocytes # (Manual) PT INR APTT D-Dimer POC ABG pH ABG pH POC ABG pCO2 POC ABG pO2 ABG pO2 ABG HCO3 ABG O2 Saturation ABG Base Excess ABG Hemoglobin VBG pH Oxyhemoglobin Sodium 132 L D Potassium 7.0 H* Chloride 84.3 L Carbon Dioxide 3 L* BUN 48 H Creatinine 1.8 H Glucose 1779 H* POC Glucose Lactic Acid Calcium Phosphorus 21.70 H Magnesium 4.70 H Iron TIBC Direct Bilirubin AST ALT Alkaline Phosphatase Total Creatine Kinase 363 H CK-MB (CK-2) C-Reactive Protein Total Protein Albumin Vitamin B12 Urine WBC (Auto) Salicylates Acetaminophen Miscellaneous Test Crossmatch 03/29/19 03/29/19 03/30/19 Unknown Unknown 00:11 WBC RBC Hgb Hct MCV MCH MCHC RDW Plt Count Lymph % (Auto) Eddy % (Auto) Lymph # Seg Neutrophils % Seg Neuts % (Manual) Lymphocytes % (Manual) Nucleated RBC % Seg Neutrophils # Seg Neutrophils # Man Lymphocytes # (Manual) Monocytes # (Manual) PT INR APTT D-Dimer POC ABG pH ABG pH POC ABG pCO2 POC ABG pO2 ABG pO2 ABG HCO3 ABG O2 Saturation ABG Base Excess ABG Hemoglobin VBG pH Oxyhemoglobin Sodium 122 L Potassium 7.9 H* 6.4 H* Chloride 75.3 L 89.7 L Carbon Dioxide 3 L* 12 L D BUN 52 H 46 H Creatinine 2.0 H 1.7 H Glucose 2043 H* 1591 H* POC Glucose Lactic Acid Calcium 7.8 L Phosphorus 19.30 H Magnesium 3.90 H Iron TIBC Direct Bilirubin AST ALT Alkaline Phosphatase Total Creatine Kinase CK-MB (CK-2) C-Reactive Protein Total Protein Albumin Vitamin B12 Urine WBC (Auto) Salicylates Acetaminophen Miscellaneous Test Crossmatch 03/30/19 03/30/19 03/30/19 00:11 02:14 02:14 WBC RBC Hgb Hct MCV MCH MCHC RDW Plt Count Lymph % (Auto) Eddy % (Auto) Lymph # Seg Neutrophils % Seg Neuts % (Manual) Lymphocytes % (Manual) Nucleated RBC % Seg Neutrophils # Seg Neutrophils # Man Lymphocytes # (Manual) Monocytes # (Manual) PT INR APTT D-Dimer POC ABG pH ABG pH POC ABG pCO2 POC ABG pO2 ABG pO2 ABG HCO3 ABG O2 Saturation ABG Base Excess ABG Hemoglobin VBG pH Oxyhemoglobin Sodium Potassium Chloride Carbon Dioxide 9 L* BUN 45 H Creatinine 1.7 H Glucose 1155 H* POC Glucose Lactic Acid Calcium 7.9 L Phosphorus 10.90 H D 5.30 H D Magnesium 3.10 H 2.90 H Iron TIBC Direct Bilirubin AST ALT Alkaline Phosphatase Total Creatine Kinase CK-MB (CK-2) C-Reactive Protein Total Protein Albumin Vitamin B12 Urine WBC (Auto) Salicylates Acetaminophen Miscellaneous Test Crossmatch 03/30/19 03/30/19 03/30/19 03:15 03:30 04:23 WBC 18.0 H RBC 2.31 L Hgb 7.3 L Hct 23.8 L D MCV 103 H MCH MCHC RDW 17.1 H Plt Count Lymph % (Auto) Eddy % (Auto) Lymph # Seg Neutrophils % Seg Neuts % (Manual) 79.0 H Lymphocytes % (Manual) Nucleated RBC % Seg Neutrophils # Seg Neutrophils # Man 14.2 H Lymphocytes # (Manual) Monocytes # (Manual) PT INR APTT D-Dimer POC ABG pH 7.251 L ABG pH POC ABG pCO2 POC ABG pO2 156 H ABG pO2 ABG HCO3 ABG O2 Saturation ABG Base Excess ABG Hemoglobin VBG pH Oxyhemoglobin Sodium Potassium Chloride Carbon Dioxide BUN Creatinine Glucose POC Glucose Lactic Acid Calcium Phosphorus Magnesium Iron TIBC Direct Bilirubin AST ALT Alkaline Phosphatase Total Creatine Kinase CK-MB (CK-2) C-Reactive Protein Total Protein Albumin Vitamin B12 Urine WBC (Auto) Salicylates Acetaminophen Miscellaneous Test Crossmatch See Detail 03/30/19 03/30/19 03/30/19 05:26 05:26 10:38 WBC RBC Hgb Hct MCV MCH MCHC RDW Plt Count Lymph % (Auto) Eddy % (Auto) Lymph # Seg Neutrophils % Seg Neuts % (Manual) Lymphocytes % (Manual) Nucleated RBC % Seg Neutrophils # Seg Neutrophils # Man Lymphocytes # (Manual) Monocytes # (Manual) PT INR APTT D-Dimer POC ABG pH ABG pH POC ABG pCO2 POC ABG pO2 ABG pO2 ABG HCO3 ABG O2 Saturation ABG Base Excess ABG Hemoglobin VBG pH Oxyhemoglobin Sodium 158 H D Potassium 3.5 L Chloride 109.3 H Carbon Dioxide 19 L D BUN 40 H Creatinine 1.5 H Glucose 760 H* POC Glucose 380 H Lactic Acid Calcium 7.3 L Phosphorus Magnesium 2.60 H Iron TIBC Direct Bilirubin AST 59661 H ALT 2156 H Alkaline Phosphatase 271 H Total Creatine Kinase 2465 H CK-MB (CK-2) 52.7 H C-Reactive Protein Total Protein 4.5 L Albumin 2.4 L Vitamin B12 Urine WBC (Auto) Salicylates Acetaminophen Miscellaneous Test Crossmatch 03/30/19 03/30/19 03/30/19 11:08 12:25 12:57 WBC RBC Hgb Hct MCV MCH MCHC RDW Plt Count Lymph % (Auto) Eddy % (Auto) Lymph # Seg Neutrophils % Seg Neuts % (Manual) Lymphocytes % (Manual) Nucleated RBC % Seg Neutrophils # Seg Neutrophils # Man Lymphocytes # (Manual) Monocytes # (Manual) PT INR APTT D-Dimer POC ABG pH ABG pH POC ABG pCO2 POC ABG pO2 ABG pO2 ABG HCO3 ABG O2 Saturation ABG Base Excess ABG Hemoglobin VBG pH Oxyhemoglobin Sodium 156 H Potassium 3.2 L Chloride 116.4 H Carbon Dioxide 21 L BUN 37 H Creatinine Glucose 162 H POC Glucose 263 H 196 H Lactic Acid Calcium 7.2 L Phosphorus Magnesium Iron TIBC Direct Bilirubin AST ALT Alkaline Phosphatase Total Creatine Kinase CK-MB (CK-2) C-Reactive Protein Total Protein Albumin Vitamin B12 Urine WBC (Auto) Salicylates Acetaminophen Miscellaneous Test Crossmatch 03/30/19 03/30/19 03/30/19 12:57 12:57 12:57 WBC RBC Hgb Hct MCV MCH MCHC RDW Plt Count Lymph % (Auto) Eddy % (Auto) Lymph # Seg Neutrophils % Seg Neuts % (Manual) Lymphocytes % (Manual) Nucleated RBC % Seg Neutrophils # Seg Neutrophils # Man Lymphocytes # (Manual) Monocytes # (Manual) PT 21.0 H INR 1.86 H APTT D-Dimer POC ABG pH ABG pH POC ABG pCO2 POC ABG pO2 ABG pO2 ABG HCO3 ABG O2 Saturation ABG Base Excess ABG Hemoglobin VBG pH Oxyhemoglobin Sodium Potassium Chloride Carbon Dioxide BUN Creatinine Glucose POC Glucose Lactic Acid 9.00 H* Calcium Phosphorus Magnesium Iron TIBC Direct Bilirubin AST ALT Alkaline Phosphatase Total Creatine Kinase CK-MB (CK-2) C-Reactive Protein 2.40 H Total Protein Albumin Vitamin B12 Urine WBC (Auto) Salicylates Acetaminophen Miscellaneous Test Crossmatch 03/30/19 03/30/19 03/30/19 13:23 14:00 14:47 WBC RBC Hgb Hct MCV MCH MCHC RDW Plt Count Lymph % (Auto) Eddy % (Auto) Lymph # Seg Neutrophils % Seg Neuts % (Manual) Lymphocytes % (Manual) Nucleated RBC % Seg Neutrophils # Seg Neutrophils # Man Lymphocytes # (Manual) Monocytes # (Manual) PT INR APTT D-Dimer POC ABG pH ABG pH POC ABG pCO2 POC ABG pO2 ABG pO2 ABG HCO3 ABG O2 Saturation ABG Base Excess ABG Hemoglobin VBG pH Oxyhemoglobin Sodium Potassium Chloride Carbon Dioxide BUN Creatinine Glucose POC Glucose 176 H 245 H Lactic Acid Calcium Phosphorus Magnesium Iron TIBC Direct Bilirubin AST ALT Alkaline Phosphatase Total Creatine Kinase CK-MB (CK-2) C-Reactive Protein Total Protein Albumin Vitamin B12 Urine WBC (Auto) Salicylates Acetaminophen Miscellaneous Test Flexitest 1 H Crossmatch 03/30/19 03/30/19 03/30/19 16:11 17:11 17:46 WBC RBC Hgb Hct MCV MCH MCHC RDW Plt Count Lymph % (Auto) Eddy % (Auto) Lymph # Seg Neutrophils % Seg Neuts % (Manual) Lymphocytes % (Manual) Nucleated RBC % Seg Neutrophils # Seg Neutrophils # Man Lymphocytes # (Manual) Monocytes # (Manual) PT INR APTT D-Dimer POC ABG pH ABG pH POC ABG pCO2 POC ABG pO2 ABG pO2 ABG HCO3 ABG O2 Saturation ABG Base Excess ABG Hemoglobin VBG pH Oxyhemoglobin Sodium Potassium Chloride Carbon Dioxide BUN Creatinine Glucose POC Glucose 181 H 167 H 125 H Lactic Acid Calcium Phosphorus Magnesium Iron TIBC Direct Bilirubin AST ALT Alkaline Phosphatase Total Creatine Kinase CK-MB (CK-2) C-Reactive Protein Total Protein Albumin Vitamin B12 Urine WBC (Auto) Salicylates Acetaminophen Miscellaneous Test Crossmatch 03/30/19 03/30/19 03/30/19 18:59 21:31 22:19 WBC RBC Hgb Hct MCV MCH MCHC RDW Plt Count Lymph % (Auto) Eddy % (Auto) Lymph # Seg Neutrophils % Seg Neuts % (Manual) Lymphocytes % (Manual) Nucleated RBC % Seg Neutrophils # Seg Neutrophils # Man Lymphocytes # (Manual) Monocytes # (Manual) PT INR APTT D-Dimer POC ABG pH ABG pH POC ABG pCO2 POC ABG pO2 ABG pO2 ABG HCO3 ABG O2 Saturation ABG Base Excess ABG Hemoglobin VBG pH Oxyhemoglobin Sodium Potassium Chloride Carbon Dioxide BUN Creatinine Glucose POC Glucose 140 H 166 H 115 H Lactic Acid Calcium Phosphorus Magnesium Iron TIBC Direct Bilirubin AST ALT Alkaline Phosphatase Total Creatine Kinase CK-MB (CK-2) C-Reactive Protein Total Protein Albumin Vitamin B12 Urine WBC (Auto) Salicylates Acetaminophen Miscellaneous Test Crossmatch 03/30/19 03/30/19 03/30/19 23:13 Unknown Unknown WBC RBC Hgb Hct MCV MCH MCHC RDW Plt Count Lymph % (Auto) Eddy % (Auto) Lymph # Seg Neutrophils % Seg Neuts % (Manual) Lymphocytes % (Manual) Nucleated RBC % Seg Neutrophils # Seg Neutrophils # Man Lymphocytes # (Manual) Monocytes # (Manual) PT INR APTT D-Dimer POC ABG pH ABG pH POC ABG pCO2 POC ABG pO2 ABG pO2 47.8 L ABG HCO3 18.8 L ABG O2 Saturation 83.8 L ABG Base Excess -5.4 L ABG Hemoglobin 6.8 L VBG pH Oxyhemoglobin 81.8 L Sodium 157 H Potassium 3.3 L Chloride 117.9 H Carbon Dioxide 20 L BUN 36 H Creatinine Glucose 150 H POC Glucose 112 H Lactic Acid Calcium 7.2 L Phosphorus Magnesium Iron TIBC Direct Bilirubin AST ALT Alkaline Phosphatase Total Creatine Kinase CK-MB (CK-2) C-Reactive Protein Total Protein Albumin Vitamin B12 Urine WBC (Auto) Salicylates Acetaminophen Miscellaneous Test Crossmatch 03/30/19 03/30/19 03/31/19 Unknown Unknown 00:03 WBC RBC Hgb Hct MCV MCH MCHC RDW Plt Count Lymph % (Auto) Eddy % (Auto) Lymph # Seg Neutrophils % Seg Neuts % (Manual) Lymphocytes % (Manual) Nucleated RBC % Seg Neutrophils # Seg Neutrophils # Man Lymphocytes # (Manual) Monocytes # (Manual) PT INR APTT D-Dimer POC ABG pH ABG pH POC ABG pCO2 POC ABG pO2 ABG pO2 ABG HCO3 ABG O2 Saturation ABG Base Excess ABG Hemoglobin VBG pH Oxyhemoglobin Sodium Potassium Chloride Carbon Dioxide BUN Creatinine Glucose POC Glucose 188 H Lactic Acid Calcium Phosphorus Magnesium Iron TIBC Direct Bilirubin AST ALT Alkaline Phosphatase Total Creatine Kinase CK-MB (CK-2) C-Reactive Protein Total Protein Albumin Vitamin B12 Urine WBC (Auto) Salicylates 0.8 L Acetaminophen < 5.0 L Miscellaneous Test Crossmatch 03/31/19 03/31/19 03/31/19 01:18 03:07 03:50 WBC RBC Hgb Hct MCV MCH MCHC RDW Plt Count Lymph % (Auto) Eddy % (Auto) Lymph # Seg Neutrophils % Seg Neuts % (Manual) Lymphocytes % (Manual) Nucleated RBC % Seg Neutrophils # Seg Neutrophils # Man Lymphocytes # (Manual) Monocytes # (Manual) PT INR APTT D-Dimer POC ABG pH ABG pH 7.525 H POC ABG pCO2 POC ABG pO2 ABG pO2 178.0 H ABG HCO3 19.5 L ABG O2 Saturation 99.2 H ABG Base Excess -3.1 L ABG Hemoglobin 5.8 L VBG pH Oxyhemoglobin Sodium Potassium Chloride Carbon Dioxide BUN Creatinine Glucose POC Glucose 114 H 107 H Lactic Acid Calcium Phosphorus Magnesium Iron TIBC Direct Bilirubin AST ALT Alkaline Phosphatase Total Creatine Kinase CK-MB (CK-2) C-Reactive Protein Total Protein Albumin Vitamin B12 Urine WBC (Auto) Salicylates Acetaminophen Miscellaneous Test Crossmatch 03/31/19 03/31/19 03/31/19 03:51 03:51 04:05 WBC RBC 1.89 L Hgb 6.1 L Hct 18.2 L* MCV MCH MCHC RDW 17.7 H Plt Count 89 L Lymph % (Auto) Eddy % (Auto) Lymph # Seg Neutrophils % Seg Neuts % (Manual) 86.0 H Lymphocytes % (Manual) 10.0 L Nucleated RBC % 1.0 H Seg Neutrophils # Seg Neutrophils # Man Lymphocytes # (Manual) 0.7 L Monocytes # (Manual) PT INR APTT D-Dimer POC ABG pH ABG pH POC ABG pCO2 POC ABG pO2 ABG pO2 ABG HCO3 ABG O2 Saturation ABG Base Excess ABG Hemoglobin VBG pH Oxyhemoglobin Sodium 151 H Potassium 3.2 L Chloride 119.4 H Carbon Dioxide 17 L BUN 35 H Creatinine Glucose 139 H POC Glucose 153 H Lactic Acid Calcium 7.1 L Phosphorus Magnesium Iron TIBC Direct Bilirubin AST ALT Alkaline Phosphatase Total Creatine Kinase CK-MB (CK-2) C-Reactive Protein Total Protein Albumin Vitamin B12 Urine WBC (Auto) Salicylates Acetaminophen Miscellaneous Test Crossmatch 03/31/19 03/31/19 03/31/19 05:05 05:35 06:23 WBC RBC Hgb Hct MCV MCH MCHC RDW Plt Count Lymph % (Auto) Eddy % (Auto) Lymph # Seg Neutrophils % Seg Neuts % (Manual) Lymphocytes % (Manual) Nucleated RBC % Seg Neutrophils # Seg Neutrophils # Man Lymphocytes # (Manual) Monocytes # (Manual) PT INR APTT D-Dimer POC ABG pH ABG pH POC ABG pCO2 POC ABG pO2 ABG pO2 ABG HCO3 ABG O2 Saturation ABG Base Excess ABG Hemoglobin VBG pH Oxyhemoglobin Sodium Potassium Chloride Carbon Dioxide BUN Creatinine Glucose POC Glucose 176 H 133 H Lactic Acid 3.20 H* Calcium Phosphorus Magnesium Iron TIBC Direct Bilirubin AST ALT Alkaline Phosphatase Total Creatine Kinase CK-MB (CK-2) C-Reactive Protein Total Protein Albumin Vitamin B12 Urine WBC (Auto) Salicylates Acetaminophen Miscellaneous Test Crossmatch 03/31/19 03/31/19 03/31/19 07:50 07:51 08:20 WBC RBC Hgb Hct MCV MCH MCHC RDW Plt Count Lymph % (Auto) Eddy % (Auto) Lymph # Seg Neutrophils % Seg Neuts % (Manual) Lymphocytes % (Manual) Nucleated RBC % Seg Neutrophils # Seg Neutrophils # Man Lymphocytes # (Manual) Monocytes # (Manual) PT INR APTT D-Dimer POC ABG pH ABG pH POC ABG pCO2 POC ABG pO2 ABG pO2 ABG HCO3 ABG O2 Saturation ABG Base Excess ABG Hemoglobin VBG pH Oxyhemoglobin Sodium Potassium Chloride Carbon Dioxide BUN Creatinine Glucose POC Glucose 135 H Lactic Acid 3.30 H* Calcium Phosphorus Magnesium Iron 26 L TIBC 193 L Direct Bilirubin AST ALT Alkaline Phosphatase Total Creatine Kinase CK-MB (CK-2) C-Reactive Protein Total Protein Albumin Vitamin B12 Urine WBC (Auto) Salicylates Acetaminophen Miscellaneous Test Crossmatch 03/31/19 03/31/19 03/31/19 08:20 08:20 09:06 WBC RBC Hgb Hct MCV MCH MCHC RDW Plt Count Lymph % (Auto) Eddy % (Auto) Lymph # Seg Neutrophils % Seg Neuts % (Manual) Lymphocytes % (Manual) Nucleated RBC % Seg Neutrophils # Seg Neutrophils # Man Lymphocytes # (Manual) Monocytes # (Manual) PT INR APTT D-Dimer POC ABG pH ABG pH POC ABG pCO2 POC ABG pO2 ABG pO2 ABG HCO3 ABG O2 Saturation ABG Base Excess ABG Hemoglobin VBG pH Oxyhemoglobin Sodium 153 H Potassium 3.0 L Chloride 118.9 H Carbon Dioxide 18 L BUN 37 H Creatinine Glucose 132 H POC Glucose 145 H Lactic Acid Calcium 7.1 L Phosphorus Magnesium Iron TIBC Direct Bilirubin AST ALT Alkaline Phosphatase Total Creatine Kinase CK-MB (CK-2) C-Reactive Protein Total Protein Albumin Vitamin B12 > 2000 H Urine WBC (Auto) Salicylates Acetaminophen Miscellaneous Test Crossmatch 03/31/19 03/31/19 03/31/19 10:47 11:49 13:04 WBC RBC Hgb Hct MCV MCH MCHC RDW Plt Count Lymph % (Auto) Eddy % (Auto) Lymph # Seg Neutrophils % Seg Neuts % (Manual) Lymphocytes % (Manual) Nucleated RBC % Seg Neutrophils # Seg Neutrophils # Man Lymphocytes # (Manual) Monocytes # (Manual) PT INR APTT D-Dimer POC ABG pH ABG pH POC ABG pCO2 POC ABG pO2 ABG pO2 ABG HCO3 ABG O2 Saturation ABG Base Excess ABG Hemoglobin VBG pH Oxyhemoglobin Sodium Potassium Chloride Carbon Dioxide BUN Creatinine Glucose POC Glucose 153 H 174 H 214 H Lactic Acid Calcium Phosphorus Magnesium Iron TIBC Direct Bilirubin AST ALT Alkaline Phosphatase Total Creatine Kinase CK-MB (CK-2) C-Reactive Protein Total Protein Albumin Vitamin B12 Urine WBC (Auto) Salicylates Acetaminophen Miscellaneous Test Crossmatch 03/31/19 03/31/19 03/31/19 13:42 15:08 16:08 WBC RBC Hgb Hct MCV MCH MCHC RDW Plt Count Lymph % (Auto) Eddy % (Auto) Lymph # Seg Neutrophils % Seg Neuts % (Manual) Lymphocytes % (Manual) Nucleated RBC % Seg Neutrophils # Seg Neutrophils # Man Lymphocytes # (Manual) Monocytes # (Manual) PT INR APTT D-Dimer POC ABG pH ABG pH POC ABG pCO2 POC ABG pO2 ABG pO2 ABG HCO3 ABG O2 Saturation ABG Base Excess ABG Hemoglobin VBG pH Oxyhemoglobin Sodium Potassium Chloride Carbon Dioxide BUN Creatinine Glucose POC Glucose 186 H 136 H 150 H Lactic Acid Calcium Phosphorus Magnesium Iron TIBC Direct Bilirubin AST ALT Alkaline Phosphatase Total Creatine Kinase CK-MB (CK-2) C-Reactive Protein Total Protein Albumin Vitamin B12 Urine WBC (Auto) Salicylates Acetaminophen Miscellaneous Test Crossmatch 03/31/19 03/31/19 03/31/19 17:11 17:30 17:30 WBC RBC Hgb 7.7 L Hct 23.0 L MCV MCH MCHC RDW Plt Count Lymph % (Auto) Eddy % (Auto) Lymph # Seg Neutrophils % Seg Neuts % (Manual) Lymphocytes % (Manual) Nucleated RBC % Seg Neutrophils # Seg Neutrophils # Man Lymphocytes # (Manual) Monocytes # (Manual) PT INR APTT D-Dimer POC ABG pH ABG pH POC ABG pCO2 POC ABG pO2 ABG pO2 ABG HCO3 ABG O2 Saturation ABG Base Excess ABG Hemoglobin VBG pH Oxyhemoglobin Sodium 153 H Potassium 3.5 L Chloride 119.3 H Carbon Dioxide 20 L BUN 34 H Creatinine Glucose 162 H POC Glucose 140 H Lactic Acid Calcium 7.6 L Phosphorus Magnesium Iron TIBC Direct Bilirubin AST ALT Alkaline Phosphatase Total Creatine Kinase CK-MB (CK-2) C-Reactive Protein Total Protein Albumin Vitamin B12 Urine WBC (Auto) Salicylates Acetaminophen Miscellaneous Test Crossmatch 03/31/19 03/31/19 03/31/19 17:59 18:58 20:28 WBC RBC Hgb Hct MCV MCH MCHC RDW Plt Count Lymph % (Auto) Eddy % (Auto) Lymph # Seg Neutrophils % Seg Neuts % (Manual) Lymphocytes % (Manual) Nucleated RBC % Seg Neutrophils # Seg Neutrophils # Man Lymphocytes # (Manual) Monocytes # (Manual) PT INR APTT D-Dimer POC ABG pH ABG pH POC ABG pCO2 POC ABG pO2 ABG pO2 ABG HCO3 ABG O2 Saturation ABG Base Excess ABG Hemoglobin VBG pH Oxyhemoglobin Sodium Potassium Chloride Carbon Dioxide BUN Creatinine Glucose POC Glucose 156 H 152 H 138 H Lactic Acid Calcium Phosphorus Magnesium Iron TIBC Direct Bilirubin AST ALT Alkaline Phosphatase Total Creatine Kinase CK-MB (CK-2) C-Reactive Protein Total Protein Albumin Vitamin B12 Urine WBC (Auto) Salicylates Acetaminophen Miscellaneous Test Crossmatch 03/31/19 03/31/19 03/31/19 21:09 22:15 23:10 WBC RBC Hgb Hct MCV MCH MCHC RDW Plt Count Lymph % (Auto) Eddy % (Auto) Lymph # Seg Neutrophils % Seg Neuts % (Manual) Lymphocytes % (Manual) Nucleated RBC % Seg Neutrophils # Seg Neutrophils # Man Lymphocytes # (Manual) Monocytes # (Manual) PT INR APTT D-Dimer POC ABG pH ABG pH POC ABG pCO2 POC ABG pO2 ABG pO2 ABG HCO3 ABG O2 Saturation ABG Base Excess ABG Hemoglobin VBG pH Oxyhemoglobin Sodium Potassium Chloride Carbon Dioxide BUN Creatinine Glucose POC Glucose 136 H 137 H 148 H Lactic Acid Calcium Phosphorus Magnesium Iron TIBC Direct Bilirubin AST ALT Alkaline Phosphatase Total Creatine Kinase CK-MB (CK-2) C-Reactive Protein Total Protein Albumin Vitamin B12 Urine WBC (Auto) Salicylates Acetaminophen Miscellaneous Test Crossmatch 04/01/19 04/01/19 04/01/19 00:05 01:17 02:11 WBC RBC Hgb Hct MCV MCH MCHC RDW Plt Count Lymph % (Auto) Eddy % (Auto) Lymph # Seg Neutrophils % Seg Neuts % (Manual) Lymphocytes % (Manual) Nucleated RBC % Seg Neutrophils # Seg Neutrophils # Man Lymphocytes # (Manual) Monocytes # (Manual) PT INR APTT D-Dimer POC ABG pH ABG pH POC ABG pCO2 POC ABG pO2 ABG pO2 ABG HCO3 ABG O2 Saturation ABG Base Excess ABG Hemoglobin VBG pH Oxyhemoglobin Sodium Potassium Chloride Carbon Dioxide BUN Creatinine Glucose POC Glucose 143 H 151 H 155 H Lactic Acid Calcium Phosphorus Magnesium Iron TIBC Direct Bilirubin AST ALT Alkaline Phosphatase Total Creatine Kinase CK-MB (CK-2) C-Reactive Protein Total Protein Albumin Vitamin B12 Urine WBC (Auto) Salicylates Acetaminophen Miscellaneous Test Crossmatch 04/01/19 04/01/19 04/01/19 03:12 04:03 04:16 WBC RBC Hgb Hct MCV MCH MCHC RDW Plt Count Lymph % (Auto) Eddy % (Auto) Lymph # Seg Neutrophils % Seg Neuts % (Manual) Lymphocytes % (Manual) Nucleated RBC % Seg Neutrophils # Seg Neutrophils # Man Lymphocytes # (Manual) Monocytes # (Manual) PT INR APTT D-Dimer POC ABG pH ABG pH POC ABG pCO2 POC ABG pO2 ABG pO2 ABG HCO3 ABG O2 Saturation ABG Base Excess ABG Hemoglobin VBG pH Oxyhemoglobin Sodium Potassium Chloride Carbon Dioxide BUN Creatinine Glucose POC Glucose 140 H 143 H 142 H Lactic Acid Calcium Phosphorus Magnesium Iron TIBC Direct Bilirubin AST ALT Alkaline Phosphatase Total Creatine Kinase CK-MB (CK-2) C-Reactive Protein Total Protein Albumin Vitamin B12 Urine WBC (Auto) Salicylates Acetaminophen Miscellaneous Test Crossmatch 04/01/19 04/01/19 04/01/19 05:01 05:01 05:08 WBC RBC 2.05 L Hgb 6.8 L Hct 20.5 L MCV 100 H MCH 33 H MCHC RDW 17.7 H Plt Count 53 L Lymph % (Auto) Eddy % (Auto) Lymph # Seg Neutrophils % Seg Neuts % (Manual) 71.0 H Lymphocytes % (Manual) Nucleated RBC % Seg Neutrophils # Seg Neutrophils # Man Lymphocytes # (Manual) Monocytes # (Manual) PT INR APTT D-Dimer POC ABG pH ABG pH POC ABG pCO2 POC ABG pO2 ABG pO2 ABG HCO3 ABG O2 Saturation ABG Base Excess ABG Hemoglobin VBG pH Oxyhemoglobin Sodium Potassium Chloride Carbon Dioxide BUN Creatinine Glucose POC Glucose 119 H Lactic Acid Calcium Phosphorus Magnesium Iron TIBC Direct Bilirubin 0.3 H AST 4601 H ALT 1542 H Alkaline Phosphatase 185 H Total Creatine Kinase CK-MB (CK-2) C-Reactive Protein Total Protein 3.8 L Albumin 1.6 L Vitamin B12 Urine WBC (Auto) Salicylates Acetaminophen Miscellaneous Test Crossmatch 04/01/19 04/01/19 04/01/19 05:23 06:37 08:15 WBC RBC Hgb Hct MCV MCH MCHC RDW Plt Count Lymph % (Auto) Eddy % (Auto) Lymph # Seg Neutrophils % Seg Neuts % (Manual) Lymphocytes % (Manual) Nucleated RBC % Seg Neutrophils # Seg Neutrophils # Man Lymphocytes # (Manual) Monocytes # (Manual) PT INR APTT D-Dimer POC ABG pH ABG pH POC ABG pCO2 POC ABG pO2 ABG pO2 ABG HCO3 ABG O2 Saturation ABG Base Excess ABG Hemoglobin VBG pH Oxyhemoglobin Sodium Potassium Chloride Carbon Dioxide BUN Creatinine Glucose POC Glucose 115 H 124 H 138 H Lactic Acid Calcium Phosphorus Magnesium Iron TIBC Direct Bilirubin AST ALT Alkaline Phosphatase Total Creatine Kinase CK-MB (CK-2) C-Reactive Protein Total Protein Albumin Vitamin B12 Urine WBC (Auto) Salicylates Acetaminophen Miscellaneous Test Crossmatch 09/03/1204/01/19 04/01/19 09:50 10:10 10:31 WBC RBC Hgb 6.5 L Hct 19.2 L* MCV MCH MCHC RDW Plt Count Lymph % (Auto) Eddy % (Auto) Lymph # Seg Neutrophils % Seg Neuts % (Manual) Lymphocytes % (Manual) Nucleated RBC % Seg Neutrophils # Seg Neutrophils # Man Lymphocytes # (Manual) Monocytes # (Manual) PT INR APTT D-Dimer POC ABG pH ABG pH POC ABG pCO2 POC ABG pO2 ABG pO2 ABG HCO3 ABG O2 Saturation ABG Base Excess ABG Hemoglobin VBG pH Oxyhemoglobin Sodium 149 H Potassium 3.5 L Chloride 119.9 H Carbon Dioxide 21 L BUN 33 H Creatinine 0.5 L Glucose 142 H POC Glucose 185 H Lactic Acid Calcium 7.3 L Phosphorus Magnesium Iron TIBC Direct Bilirubin AST 3686 H ALT 1440 H Alkaline Phosphatase 185 H Total Creatine Kinase CK-MB (CK-2) C-Reactive Protein Total Protein 3.7 L Albumin 1.8 L Vitamin B12 Urine WBC (Auto) Salicylates Acetaminophen Miscellaneous Test Crossmatch 04/01/19 04/01/19 04/01/19 11:35 13:05 14:35 WBC RBC Hgb Hct MCV MCH MCHC RDW Plt Count Lymph % (Auto) Eddy % (Auto) Lymph # Seg Neutrophils % Seg Neuts % (Manual) Lymphocytes % (Manual) Nucleated RBC % Seg Neutrophils # Seg Neutrophils # Man Lymphocytes # (Manual) Monocytes # (Manual) PT INR APTT D-Dimer POC ABG pH ABG pH POC ABG pCO2 POC ABG pO2 ABG pO2 ABG HCO3 ABG O2 Saturation ABG Base Excess ABG Hemoglobin VBG pH Oxyhemoglobin Sodium Potassium Chloride Carbon Dioxide BUN Creatinine Glucose POC Glucose 201 H 169 H 134 H Lactic Acid Calcium Phosphorus Magnesium Iron TIBC Direct Bilirubin AST ALT Alkaline Phosphatase Total Creatine Kinase CK-MB (CK-2) C-Reactive Protein Total Protein Albumin Vitamin B12 Urine WBC (Auto) Salicylates Acetaminophen Miscellaneous Test Crossmatch 04/01/19 04/01/19 04/01/19 17:13 17:14 18:30 WBC RBC Hgb Hct MCV MCH MCHC RDW Plt Count Lymph % (Auto) Eddy % (Auto) Lymph # Seg Neutrophils % Seg Neuts % (Manual) Lymphocytes % (Manual) Nucleated RBC % Seg Neutrophils # Seg Neutrophils # Man Lymphocytes # (Manual) Monocytes # (Manual) PT INR APTT D-Dimer 5203.68 H POC ABG pH ABG pH POC ABG pCO2 POC ABG pO2 ABG pO2 ABG HCO3 ABG O2 Saturation ABG Base Excess ABG Hemoglobin VBG pH Oxyhemoglobin Sodium Potassium Chloride Carbon Dioxide BUN Creatinine Glucose POC Glucose 69 L 128 H Lactic Acid Calcium Phosphorus Magnesium Iron TIBC Direct Bilirubin AST ALT Alkaline Phosphatase Total Creatine Kinase CK-MB (CK-2) C-Reactive Protein Total Protein Albumin Vitamin B12 Urine WBC (Auto) Salicylates Acetaminophen Miscellaneous Test Crossmatch 04/01/19 04/01/19 04/02/19 22:50 Unknown 03:40 WBC RBC Hgb Hct MCV MCH MCHC RDW Plt Count Lymph % (Auto) Eddy % (Auto) Lymph # Seg Neutrophils % Seg Neuts % (Manual) Lymphocytes % (Manual) Nucleated RBC % Seg Neutrophils # Seg Neutrophils # Man Lymphocytes # (Manual) Monocytes # (Manual) PT INR APTT D-Dimer POC ABG pH ABG pH POC ABG pCO2 POC ABG pO2 ABG pO2 78.3 L 142.8 H ABG HCO3 15.5 L ABG O2 Saturation ABG Base Excess -3.5 L -8.2 L ABG Hemoglobin 6.8 L 8.2 L VBG pH Oxyhemoglobin 94.3 L Sodium Potassium Chloride Carbon Dioxide BUN Creatinine Glucose POC Glucose 342 H Lactic Acid Calcium Phosphorus Magnesium Iron TIBC Direct Bilirubin AST ALT Alkaline Phosphatase Total Creatine Kinase CK-MB (CK-2) C-Reactive Protein Total Protein Albumin Vitamin B12 Urine WBC (Auto) Salicylates Acetaminophen Miscellaneous Test Crossmatch 04/02/19 04/02/19 04/02/19 03:49 06:50 07:48 WBC RBC 2.65 L Hgb 8.6 L Hct 25.1 L MCV MCH MCHC RDW 17.6 H Plt Count 48 L Lymph % (Auto) Eddy % (Auto) Lymph # Seg Neutrophils % Seg Neuts % (Manual) Lymphocytes % (Manual) Nucleated RBC % Seg Neutrophils # Seg Neutrophils # Man Lymphocytes # (Manual) Monocytes # (Manual) PT INR APTT D-Dimer POC ABG pH ABG pH POC ABG pCO2 POC ABG pO2 ABG pO2 ABG HCO3 ABG O2 Saturation ABG Base Excess ABG Hemoglobin VBG pH Oxyhemoglobin Sodium Potassium Chloride Carbon Dioxide BUN Creatinine Glucose POC Glucose 247 H 200 H Lactic Acid Calcium Phosphorus Magnesium Iron TIBC Direct Bilirubin AST ALT Alkaline Phosphatase Total Creatine Kinase CK-MB (CK-2) C-Reactive Protein Total Protein Albumin Vitamin B12 Urine WBC (Auto) Salicylates Acetaminophen Miscellaneous Test Crossmatch 04/02/19 04/02/19 04/02/19 07:48 11:18 14:07 WBC RBC Hgb Hct MCV MCH MCHC RDW Plt Count Lymph % (Auto) Eddy % (Auto) Lymph # Seg Neutrophils % Seg Neuts % (Manual) Lymphocytes % (Manual) Nucleated RBC % Seg Neutrophils # Seg Neutrophils # Man Lymphocytes # (Manual) Monocytes # (Manual) PT INR APTT D-Dimer POC ABG pH ABG pH POC ABG pCO2 POC ABG pO2 ABG pO2 ABG HCO3 ABG O2 Saturation ABG Base Excess ABG Hemoglobin VBG pH Oxyhemoglobin Sodium Potassium 3.5 L Chloride 115.7 H Carbon Dioxide 19 L BUN 29 H Creatinine 0.5 L Glucose 159 H POC Glucose 154 H 149 H Lactic Acid Calcium 7.5 L Phosphorus Magnesium Iron TIBC Direct Bilirubin AST 1418 H ALT 1134 H Alkaline Phosphatase 242 H Total Creatine Kinase CK-MB (CK-2) C-Reactive Protein Total Protein 4.2 L Albumin 2.1 L Vitamin B12 Urine WBC (Auto) Salicylates Acetaminophen Miscellaneous Test Crossmatch 04/02/19 04/02/19 04/02/19 18:09 19:46 23:05 WBC RBC Hgb Hct MCV MCH MCHC RDW Plt Count Lymph % (Auto) Eddy % (Auto) Lymph # Seg Neutrophils % Seg Neuts % (Manual) Lymphocytes % (Manual) Nucleated RBC % Seg Neutrophils # Seg Neutrophils # Man Lymphocytes # (Manual) Monocytes # (Manual) PT INR APTT D-Dimer POC ABG pH ABG pH POC ABG pCO2 POC ABG pO2 ABG pO2 ABG HCO3 ABG O2 Saturation ABG Base Excess ABG Hemoglobin VBG pH Oxyhemoglobin Sodium Potassium Chloride Carbon Dioxide BUN Creatinine Glucose POC Glucose 188 H 209 H 247 H Lactic Acid Calcium Phosphorus Magnesium Iron TIBC Direct Bilirubin AST ALT Alkaline Phosphatase Total Creatine Kinase CK-MB (CK-2) C-Reactive Protein Total Protein Albumin Vitamin B12 Urine WBC (Auto) Salicylates Acetaminophen Miscellaneous Test Crossmatch 04/03/19 04/03/19 04/03/19 02:58 03:40 03:40 WBC RBC 2.87 L Hgb 9.3 L Hct 27.0 L MCV MCH MCHC RDW 17.2 H Plt Count 65 L Lymph % (Auto) Eddy % (Auto) 9.8 H Lymph # 1.1 L Seg Neutrophils % Seg Neuts % (Manual) Lymphocytes % (Manual) Nucleated RBC % Seg Neutrophils # Seg Neutrophils # Man Lymphocytes # (Manual) Monocytes # (Manual) PT INR APTT D-Dimer POC ABG pH ABG pH POC ABG pCO2 POC ABG pO2 ABG pO2 ABG HCO3 ABG O2 Saturation ABG Base Excess ABG Hemoglobin VBG pH Oxyhemoglobin Sodium 147 H Potassium 3.5 L Chloride 116.7 H Carbon Dioxide 18 L BUN Creatinine 0.4 L Glucose 150 H POC Glucose 166 H Lactic Acid Calcium 8.1 L Phosphorus 2.20 L Magnesium Iron TIBC Direct Bilirubin AST 594 H ALT 861 H Alkaline Phosphatase 299 H Total Creatine Kinase CK-MB (CK-2) C-Reactive Protein Total Protein 4.4 L Albumin 2.1 L Vitamin B12 Urine WBC (Auto) Salicylates Acetaminophen Miscellaneous Test Crossmatch 04/03/19 04/03/19 04/03/19 05:35 07:02 08:23 WBC RBC Hgb Hct MCV MCH MCHC RDW Plt Count Lymph % (Auto) Eddy % (Auto) Lymph # Seg Neutrophils % Seg Neuts % (Manual) Lymphocytes % (Manual) Nucleated RBC % Seg Neutrophils # Seg Neutrophils # Man Lymphocytes # (Manual) Monocytes # (Manual) PT INR APTT D-Dimer POC ABG pH ABG pH POC ABG pCO2 POC ABG pO2 ABG pO2 97.7 H ABG HCO3 19.3 L ABG O2 Saturation ABG Base Excess -5.0 L ABG Hemoglobin 8.0 L VBG pH Oxyhemoglobin Sodium Potassium Chloride Carbon Dioxide BUN Creatinine Glucose POC Glucose 135 H 132 H Lactic Acid Calcium Phosphorus Magnesium Iron TIBC Direct Bilirubin AST ALT Alkaline Phosphatase Total Creatine Kinase CK-MB (CK-2) C-Reactive Protein Total Protein Albumin Vitamin B12 Urine WBC (Auto) Salicylates Acetaminophen Miscellaneous Test Crossmatch 04/03/19 04/03/19 04/03/19 11:58 15:11 17:53 WBC RBC Hgb Hct MCV MCH MCHC RDW Plt Count Lymph % (Auto) Eddy % (Auto) Lymph # Seg Neutrophils % Seg Neuts % (Manual) Lymphocytes % (Manual) Nucleated RBC % Seg Neutrophils # Seg Neutrophils # Man Lymphocytes # (Manual) Monocytes # (Manual) PT INR APTT D-Dimer POC ABG pH ABG pH POC ABG pCO2 POC ABG pO2 ABG pO2 ABG HCO3 ABG O2 Saturation ABG Base Excess ABG Hemoglobin VBG pH Oxyhemoglobin Sodium Potassium Chloride Carbon Dioxide BUN Creatinine Glucose POC Glucose 179 H 213 H 223 H Lactic Acid Calcium Phosphorus Magnesium Iron TIBC Direct Bilirubin AST ALT Alkaline Phosphatase Total Creatine Kinase CK-MB (CK-2) C-Reactive Protein Total Protein Albumin Vitamin B12 Urine WBC (Auto) Salicylates Acetaminophen Miscellaneous Test Crossmatch 04/03/19 04/04/19 04/04/19 23:06 02:36 06:41 WBC RBC Hgb Hct MCV MCH MCHC RDW Plt Count Lymph % (Auto) Eddy % (Auto) Lymph # Seg Neutrophils % Seg Neuts % (Manual) Lymphocytes % (Manual) Nucleated RBC % Seg Neutrophils # Seg Neutrophils # Man Lymphocytes # (Manual) Monocytes # (Manual) PT INR APTT D-Dimer POC ABG pH ABG pH POC ABG pCO2 POC ABG pO2 ABG pO2 ABG HCO3 ABG O2 Saturation ABG Base Excess ABG Hemoglobin VBG pH Oxyhemoglobin Sodium Potassium Chloride Carbon Dioxide BUN Creatinine Glucose POC Glucose 189 H 157 H 131 H Lactic Acid Calcium Phosphorus Magnesium Iron TIBC Direct Bilirubin AST ALT Alkaline Phosphatase Total Creatine Kinase CK-MB (CK-2) C-Reactive Protein Total Protein Albumin Vitamin B12 Urine WBC (Auto) Salicylates Acetaminophen Miscellaneous Test Crossmatch 04/04/19 04/04/19 04/04/19 11:42 15:45 18:21 WBC RBC Hgb Hct MCV MCH MCHC RDW Plt Count Lymph % (Auto) Eddy % (Auto) Lymph # Seg Neutrophils % Seg Neuts % (Manual) Lymphocytes % (Manual) Nucleated RBC % Seg Neutrophils # Seg Neutrophils # Man Lymphocytes # (Manual) Monocytes # (Manual) PT INR APTT D-Dimer POC ABG pH ABG pH POC ABG pCO2 POC ABG pO2 ABG pO2 ABG HCO3 ABG O2 Saturation ABG Base Excess ABG Hemoglobin VBG pH Oxyhemoglobin Sodium Potassium Chloride Carbon Dioxide BUN Creatinine Glucose POC Glucose 233 H 236 H 255 H Lactic Acid Calcium Phosphorus Magnesium Iron TIBC Direct Bilirubin AST ALT Alkaline Phosphatase Total Creatine Kinase CK-MB (CK-2) C-Reactive Protein Total Protein Albumin Vitamin B12 Urine WBC (Auto) Salicylates Acetaminophen Miscellaneous Test Crossmatch 04/04/19 04/05/19 04/05/19 21:21 03:06 06:05 WBC RBC 2.68 L Hgb 8.5 L Hct 26.3 L MCV 98 H MCH MCHC RDW 17.4 H Plt Count Lymph % (Auto) Eddy % (Auto) Lymph # Seg Neutrophils % Seg Neuts % (Manual) Lymphocytes % (Manual) Nucleated RBC % Seg Neutrophils # Seg Neutrophils # Man Lymphocytes # (Manual) Monocytes # (Manual) PT INR APTT D-Dimer POC ABG pH ABG pH POC ABG pCO2 POC ABG pO2 ABG pO2 ABG HCO3 ABG O2 Saturation ABG Base Excess ABG Hemoglobin VBG pH Oxyhemoglobin Sodium Potassium Chloride Carbon Dioxide BUN Creatinine Glucose POC Glucose 132 H 161 H Lactic Acid Calcium Phosphorus Magnesium Iron TIBC Direct Bilirubin AST ALT Alkaline Phosphatase Total Creatine Kinase CK-MB (CK-2) C-Reactive Protein Total Protein Albumin Vitamin B12 Urine WBC (Auto) Salicylates Acetaminophen Miscellaneous Test Crossmatch 04/05/19 04/05/19 04/05/19 06:05 06:49 10:23 WBC RBC Hgb Hct MCV MCH MCHC RDW Plt Count Lymph % (Auto) Eddy % (Auto) Lymph # Seg Neutrophils % Seg Neuts % (Manual) Lymphocytes % (Manual) Nucleated RBC % Seg Neutrophils # Seg Neutrophils # Man Lymphocytes # (Manual) Monocytes # (Manual) PT INR APTT D-Dimer POC ABG pH ABG pH POC ABG pCO2 POC ABG pO2 ABG pO2 ABG HCO3 ABG O2 Saturation ABG Base Excess ABG Hemoglobin VBG pH Oxyhemoglobin Sodium Potassium Chloride 112.5 H Carbon Dioxide BUN Creatinine 0.2 L Glucose 237 H POC Glucose 283 H 296 H Lactic Acid Calcium 7.9 L Phosphorus Magnesium Iron TIBC Direct Bilirubin AST ALT Alkaline Phosphatase Total Creatine Kinase CK-MB (CK-2) C-Reactive Protein Total Protein Albumin Vitamin B12 Urine WBC (Auto) Salicylates Acetaminophen Miscellaneous Test Crossmatch 04/05/19 04/05/19 04/05/19 14:46 18:19 20:35 WBC RBC Hgb Hct MCV MCH MCHC RDW Plt Count Lymph % (Auto) Eddy % (Auto) Lymph # Seg Neutrophils % Seg Neuts % (Manual) Lymphocytes % (Manual) Nucleated RBC % Seg Neutrophils # Seg Neutrophils # Man Lymphocytes # (Manual) Monocytes # (Manual) PT INR APTT D-Dimer POC ABG pH ABG pH POC ABG pCO2 POC ABG pO2 ABG pO2 ABG HCO3 ABG O2 Saturation ABG Base Excess ABG Hemoglobin VBG pH Oxyhemoglobin Sodium Potassium Chloride Carbon Dioxide BUN Creatinine Glucose POC Glucose 225 H 259 H 236 H Lactic Acid Calcium Phosphorus Magnesium Iron TIBC Direct Bilirubin AST ALT Alkaline Phosphatase Total Creatine Kinase CK-MB (CK-2) C-Reactive Protein Total Protein Albumin Vitamin B12 Urine WBC (Auto) Salicylates Acetaminophen Miscellaneous Test Crossmatch 04/05/19 04/06/19 04/06/19 23:11 00:06 03:14 WBC RBC Hgb Hct MCV MCH MCHC RDW Plt Count Lymph % (Auto) Eddy % (Auto) Lymph # Seg Neutrophils % Seg Neuts % (Manual) Lymphocytes % (Manual) Nucleated RBC % Seg Neutrophils # Seg Neutrophils # Man Lymphocytes # (Manual) Monocytes # (Manual) PT INR APTT D-Dimer 4526.86 H POC ABG pH ABG pH POC ABG pCO2 POC ABG pO2 ABG pO2 ABG HCO3 ABG O2 Saturation ABG Base Excess ABG Hemoglobin VBG pH Oxyhemoglobin Sodium Potassium Chloride Carbon Dioxide BUN Creatinine Glucose POC Glucose 205 H 228 H Lactic Acid Calcium Phosphorus Magnesium Iron TIBC Direct Bilirubin AST ALT Alkaline Phosphatase Total Creatine Kinase CK-MB (CK-2) C-Reactive Protein Total Protein Albumin Vitamin B12 Urine WBC (Auto) Salicylates Acetaminophen Miscellaneous Test Crossmatch 04/06/19 04/06/19 04/06/19 05:20 05:20 07:57 WBC 15.1 H RBC 2.90 L Hgb 9.1 L Hct 28.0 L MCV MCH MCHC RDW 17.3 H Plt Count Lymph % (Auto) Eddy % (Auto) Lymph # Seg Neutrophils % Seg Neuts % (Manual) Lymphocytes % (Manual) Nucleated RBC % Seg Neutrophils # Seg Neutrophils # Man Lymphocytes # (Manual) Monocytes # (Manual) PT INR APTT D-Dimer POC ABG pH ABG pH POC ABG pCO2 POC ABG pO2 ABG pO2 ABG HCO3 ABG O2 Saturation ABG Base Excess ABG Hemoglobin VBG pH Oxyhemoglobin Sodium Potassium Chloride Carbon Dioxide BUN Creatinine 0.2 L Glucose 161 H POC Glucose 191 H Lactic Acid Calcium 8.0 L Phosphorus Magnesium Iron TIBC Direct Bilirubin AST ALT Alkaline Phosphatase Total Creatine Kinase CK-MB (CK-2) C-Reactive Protein Total Protein Albumin Vitamin B12 Urine WBC (Auto) Salicylates Acetaminophen Miscellaneous Test Crossmatch 04/06/19 04/06/19 04/06/19 12:09 18:24 22:07 WBC RBC Hgb Hct MCV MCH MCHC RDW Plt Count Lymph % (Auto) Eddy % (Auto) Lymph # Seg Neutrophils % Seg Neuts % (Manual) Lymphocytes % (Manual) Nucleated RBC % Seg Neutrophils # Seg Neutrophils # Man Lymphocytes # (Manual) Monocytes # (Manual) PT INR APTT D-Dimer POC ABG pH ABG pH POC ABG pCO2 POC ABG pO2 ABG pO2 ABG HCO3 ABG O2 Saturation ABG Base Excess ABG Hemoglobin VBG pH Oxyhemoglobin Sodium Potassium Chloride Carbon Dioxide BUN Creatinine Glucose POC Glucose 143 H 161 H 140 H Lactic Acid Calcium Phosphorus Magnesium Iron TIBC Direct Bilirubin AST ALT Alkaline Phosphatase Total Creatine Kinase CK-MB (CK-2) C-Reactive Protein Total Protein Albumin Vitamin B12 Urine WBC (Auto) Salicylates Acetaminophen Miscellaneous Test Crossmatch 04/07/19 04/07/19 04/07/19 03:00 04:30 04:30 WBC 13.0 H RBC 2.65 L Hgb 8.3 L Hct 25.5 L MCV MCH MCHC RDW 17.0 H Plt Count Lymph % (Auto) Eddy % (Auto) Lymph # Seg Neutrophils % Seg Neuts % (Manual) Lymphocytes % (Manual) Nucleated RBC % Seg Neutrophils # Seg Neutrophils # Man Lymphocytes # (Manual) Monocytes # (Manual) PT INR APTT D-Dimer POC ABG pH ABG pH POC ABG pCO2 POC ABG pO2 ABG pO2 ABG HCO3 ABG O2 Saturation ABG Base Excess ABG Hemoglobin VBG pH Oxyhemoglobin Sodium Potassium Chloride Carbon Dioxide BUN Creatinine 0.2 L Glucose 208 H POC Glucose 224 H Lactic Acid Calcium 7.7 L Phosphorus Magnesium Iron TIBC Direct Bilirubin AST ALT Alkaline Phosphatase Total Creatine Kinase CK-MB (CK-2) C-Reactive Protein Total Protein Albumin Vitamin B12 Urine WBC (Auto) Salicylates Acetaminophen Miscellaneous Test Crossmatch 04/07/19 04/07/19 04/07/19 05:47 08:27 10:33 WBC RBC Hgb Hct MCV MCH MCHC RDW Plt Count Lymph % (Auto) Eddy % (Auto) Lymph # Seg Neutrophils % Seg Neuts % (Manual) Lymphocytes % (Manual) Nucleated RBC % Seg Neutrophils # Seg Neutrophils # Man Lymphocytes # (Manual) Monocytes # (Manual) PT INR APTT D-Dimer POC ABG pH ABG pH POC ABG pCO2 POC ABG pO2 ABG pO2 ABG HCO3 ABG O2 Saturation ABG Base Excess ABG Hemoglobin VBG pH Oxyhemoglobin Sodium Potassium Chloride Carbon Dioxide BUN Creatinine Glucose POC Glucose 225 H 176 H 207 H Lactic Acid Calcium Phosphorus Magnesium Iron TIBC Direct Bilirubin AST ALT Alkaline Phosphatase Total Creatine Kinase CK-MB (CK-2) C-Reactive Protein Total Protein Albumin Vitamin B12 Urine WBC (Auto) Salicylates Acetaminophen Miscellaneous Test Crossmatch 04/07/19 04/07/19 04/07/19 14:13 18:32 22:42 WBC RBC Hgb Hct MCV MCH MCHC RDW Plt Count Lymph % (Auto) Eddy % (Auto) Lymph # Seg Neutrophils % Seg Neuts % (Manual) Lymphocytes % (Manual) Nucleated RBC % Seg Neutrophils # Seg Neutrophils # Man Lymphocytes # (Manual) Monocytes # (Manual) PT INR APTT D-Dimer POC ABG pH ABG pH POC ABG pCO2 POC ABG pO2 ABG pO2 ABG HCO3 ABG O2 Saturation ABG Base Excess ABG Hemoglobin VBG pH Oxyhemoglobin Sodium Potassium Chloride Carbon Dioxide BUN Creatinine Glucose POC Glucose 219 H 227 H 238 H Lactic Acid Calcium Phosphorus Magnesium Iron TIBC Direct Bilirubin AST ALT Alkaline Phosphatase Total Creatine Kinase CK-MB (CK-2) C-Reactive Protein Total Protein Albumin Vitamin B12 Urine WBC (Auto) Salicylates Acetaminophen Miscellaneous Test Crossmatch 04/08/19 04/08/19 04/08/19 02:31 05:37 14:10 WBC RBC Hgb Hct MCV MCH MCHC RDW Plt Count Lymph % (Auto) Eddy % (Auto) Lymph # Seg Neutrophils % Seg Neuts % (Manual) Lymphocytes % (Manual) Nucleated RBC % Seg Neutrophils # Seg Neutrophils # Man Lymphocytes # (Manual) Monocytes # (Manual) PT INR APTT D-Dimer POC ABG pH ABG pH POC ABG pCO2 POC ABG pO2 ABG pO2 ABG HCO3 ABG O2 Saturation ABG Base Excess ABG Hemoglobin VBG pH Oxyhemoglobin Sodium Potassium Chloride Carbon Dioxide BUN Creatinine Glucose POC Glucose 194 H 194 H 139 H Lactic Acid Calcium Phosphorus Magnesium Iron TIBC Direct Bilirubin AST ALT Alkaline Phosphatase Total Creatine Kinase CK-MB (CK-2) C-Reactive Protein Total Protein Albumin Vitamin B12 Urine WBC (Auto) Salicylates Acetaminophen Miscellaneous Test Crossmatch 04/08/19 04/08/19 04/09/19 17:43 23:20 03:28 WBC RBC Hgb Hct MCV MCH MCHC RDW Plt Count Lymph % (Auto) Eddy % (Auto) Lymph # Seg Neutrophils % Seg Neuts % (Manual) Lymphocytes % (Manual) Nucleated RBC % Seg Neutrophils # Seg Neutrophils # Man Lymphocytes # (Manual) Monocytes # (Manual) PT INR APTT D-Dimer POC ABG pH ABG pH POC ABG pCO2 POC ABG pO2 ABG pO2 ABG HCO3 ABG O2 Saturation ABG Base Excess ABG Hemoglobin VBG pH Oxyhemoglobin Sodium Potassium Chloride Carbon Dioxide BUN Creatinine Glucose POC Glucose 261 H 277 H 301 H Lactic Acid Calcium Phosphorus Magnesium Iron TIBC Direct Bilirubin AST ALT Alkaline Phosphatase Total Creatine Kinase CK-MB (CK-2) C-Reactive Protein Total Protein Albumin Vitamin B12 Urine WBC (Auto) Salicylates Acetaminophen Miscellaneous Test Crossmatch 04/09/19 04/09/19 04/09/19 05:35 05:35 05:35 WBC RBC 2.78 L Hgb 9.0 L Hct 26.7 L MCV MCH MCHC RDW 17.0 H Plt Count Lymph % (Auto) Eddy % (Auto) Lymph # Seg Neutrophils % Seg Neuts % (Manual) Lymphocytes % (Manual) Nucleated RBC % Seg Neutrophils # Seg Neutrophils # Man Lymphocytes # (Manual) Monocytes # (Manual) PT INR APTT D-Dimer POC ABG pH ABG pH POC ABG pCO2 POC ABG pO2 ABG pO2 ABG HCO3 ABG O2 Saturation ABG Base Excess ABG Hemoglobin VBG pH Oxyhemoglobin Sodium Potassium Chloride Carbon Dioxide 31 H BUN Creatinine 0.2 L Glucose 218 H POC Glucose 240 H Lactic Acid Calcium Phosphorus Magnesium Iron TIBC Direct Bilirubin AST ALT Alkaline Phosphatase Total Creatine Kinase CK-MB (CK-2) C-Reactive Protein Total Protein Albumin Vitamin B12 Urine WBC (Auto) Salicylates Acetaminophen Miscellaneous Test Crossmatch 04/09/19 04/09/19 04/09/19 09:01 12:23 17:33 WBC RBC Hgb Hct MCV MCH MCHC RDW Plt Count Lymph % (Auto) Eddy % (Auto) Lymph # Seg Neutrophils % Seg Neuts % (Manual) Lymphocytes % (Manual) Nucleated RBC % Seg Neutrophils # Seg Neutrophils # Man Lymphocytes # (Manual) Monocytes # (Manual) PT INR APTT D-Dimer POC ABG pH ABG pH POC ABG pCO2 POC ABG pO2 ABG pO2 ABG HCO3 ABG O2 Saturation ABG Base Excess ABG Hemoglobin VBG pH Oxyhemoglobin Sodium Potassium Chloride Carbon Dioxide BUN Creatinine Glucose POC Glucose 160 H 162 H 149 H Lactic Acid Calcium Phosphorus Magnesium Iron TIBC Direct Bilirubin AST ALT Alkaline Phosphatase Total Creatine Kinase CK-MB (CK-2) C-Reactive Protein Total Protein Albumin Vitamin B12 Urine WBC (Auto) Salicylates Acetaminophen Miscellaneous Test Crossmatch 04/09/19 04/09/19 04/10/19 21:26 22:28 03:16 WBC RBC Hgb Hct MCV MCH MCHC RDW Plt Count Lymph % (Auto) Eddy % (Auto) Lymph # Seg Neutrophils % Seg Neuts % (Manual) Lymphocytes % (Manual) Nucleated RBC % Seg Neutrophils # Seg Neutrophils # Man Lymphocytes # (Manual) Monocytes # (Manual) PT INR APTT D-Dimer POC ABG pH ABG pH POC ABG pCO2 POC ABG pO2 ABG pO2 ABG HCO3 ABG O2 Saturation ABG Base Excess ABG Hemoglobin VBG pH Oxyhemoglobin Sodium Potassium Chloride Carbon Dioxide BUN Creatinine Glucose POC Glucose 196 H 224 H 163 H Lactic Acid Calcium Phosphorus Magnesium Iron TIBC Direct Bilirubin AST ALT Alkaline Phosphatase Total Creatine Kinase CK-MB (CK-2) C-Reactive Protein Total Protein Albumin Vitamin B12 Urine WBC (Auto) Salicylates Acetaminophen Miscellaneous Test Crossmatch 04/10/19 04/10/19 04/10/19 04:15 04:15 05:30 WBC RBC 2.88 L Hgb 9.2 L Hct 27.9 L MCV MCH MCHC RDW 17.0 H Plt Count 454 H Lymph % (Auto) Eddy % (Auto) Lymph # Seg Neutrophils % Seg Neuts % (Manual) Lymphocytes % (Manual) Nucleated RBC % Seg Neutrophils # Seg Neutrophils # Man Lymphocytes # (Manual) Monocytes # (Manual) PT INR APTT D-Dimer POC ABG pH ABG pH POC ABG pCO2 POC ABG pO2 ABG pO2 ABG HCO3 ABG O2 Saturation ABG Base Excess ABG Hemoglobin VBG pH Oxyhemoglobin Sodium Potassium Chloride Carbon Dioxide 32 H BUN Creatinine 0.2 L Glucose 126 H POC Glucose 135 H Lactic Acid Calcium Phosphorus Magnesium Iron TIBC Direct Bilirubin AST ALT Alkaline Phosphatase Total Creatine Kinase CK-MB (CK-2) C-Reactive Protein Total Protein Albumin Vitamin B12 Urine WBC (Auto) Salicylates Acetaminophen Miscellaneous Test Crossmatch 04/10/19 04/10/19 04/10/19 12:14 15:29 23:38 WBC RBC Hgb Hct MCV MCH MCHC RDW Plt Count Lymph % (Auto) Eddy % (Auto) Lymph # Seg Neutrophils % Seg Neuts % (Manual) Lymphocytes % (Manual) Nucleated RBC % Seg Neutrophils # Seg Neutrophils # Man Lymphocytes # (Manual) Monocytes # (Manual) PT INR APTT D-Dimer POC ABG pH ABG pH POC ABG pCO2 POC ABG pO2 ABG pO2 ABG HCO3 ABG O2 Saturation ABG Base Excess ABG Hemoglobin VBG pH Oxyhemoglobin Sodium Potassium Chloride Carbon Dioxide BUN Creatinine Glucose POC Glucose 109 H 149 H 268 H Lactic Acid Calcium Phosphorus Magnesium Iron TIBC Direct Bilirubin AST ALT Alkaline Phosphatase Total Creatine Kinase CK-MB (CK-2) C-Reactive Protein Total Protein Albumin Vitamin B12 Urine WBC (Auto) Salicylates Acetaminophen Miscellaneous Test Crossmatch 04/11/19 04/11/19 04/11/19 05:27 12:08 18:08 WBC RBC Hgb Hct MCV MCH MCHC RDW Plt Count Lymph % (Auto) Eddy % (Auto) Lymph # Seg Neutrophils % Seg Neuts % (Manual) Lymphocytes % (Manual) Nucleated RBC % Seg Neutrophils # Seg Neutrophils # Man Lymphocytes # (Manual) Monocytes # (Manual) PT INR APTT D-Dimer POC ABG pH ABG pH POC ABG pCO2 POC ABG pO2 ABG pO2 ABG HCO3 ABG O2 Saturation ABG Base Excess ABG Hemoglobin VBG pH Oxyhemoglobin Sodium Potassium Chloride Carbon Dioxide BUN Creatinine Glucose POC Glucose 109 H 185 H 190 H Lactic Acid Calcium Phosphorus Magnesium Iron TIBC Direct Bilirubin AST ALT Alkaline Phosphatase Total Creatine Kinase CK-MB (CK-2) C-Reactive Protein Total Protein Albumin Vitamin B12 Urine WBC (Auto) Salicylates Acetaminophen Miscellaneous Test Crossmatch 04/11/19 04/12/19 04/12/19 23:23 06:00 11:42 WBC RBC Hgb Hct MCV MCH MCHC RDW Plt Count Lymph % (Auto) Eddy % (Auto) Lymph # Seg Neutrophils % Seg Neuts % (Manual) Lymphocytes % (Manual) Nucleated RBC % Seg Neutrophils # Seg Neutrophils # Man Lymphocytes # (Manual) Monocytes # (Manual) PT INR APTT D-Dimer POC ABG pH ABG pH POC ABG pCO2 POC ABG pO2 ABG pO2 ABG HCO3 ABG O2 Saturation ABG Base Excess ABG Hemoglobin VBG pH Oxyhemoglobin Sodium Potassium Chloride Carbon Dioxide BUN Creatinine Glucose POC Glucose 127 H 201 H 161 H Lactic Acid Calcium Phosphorus Magnesium Iron TIBC Direct Bilirubin AST ALT Alkaline Phosphatase Total Creatine Kinase CK-MB (CK-2) C-Reactive Protein Total Protein Albumin Vitamin B12 Urine WBC (Auto) Salicylates Acetaminophen Miscellaneous Test Crossmatch 04/12/19 04/12/19 04/12/19 17:56 20:07 21:59 WBC RBC Hgb Hct MCV MCH MCHC RDW Plt Count Lymph % (Auto) Eddy % (Auto) Lymph # Seg Neutrophils % Seg Neuts % (Manual) Lymphocytes % (Manual) Nucleated RBC % Seg Neutrophils # Seg Neutrophils # Man Lymphocytes # (Manual) Monocytes # (Manual) PT INR APTT D-Dimer POC ABG pH ABG pH POC ABG pCO2 POC ABG pO2 ABG pO2 ABG HCO3 ABG O2 Saturation ABG Base Excess ABG Hemoglobin VBG pH Oxyhemoglobin Sodium Potassium Chloride Carbon Dioxide BUN Creatinine Glucose POC Glucose 145 H 158 H 203 H Lactic Acid Calcium Phosphorus Magnesium Iron TIBC Direct Bilirubin AST ALT Alkaline Phosphatase Total Creatine Kinase CK-MB (CK-2) C-Reactive Protein Total Protein Albumin Vitamin B12 Urine WBC (Auto) Salicylates Acetaminophen Miscellaneous Test Crossmatch 04/12/19 04/13/19 04/13/19 23:37 08:50 08:50 WBC 15.7 H RBC 3.12 L Hgb Hct 30.2 L MCV MCH 33 H MCHC RDW 18.0 H Plt Count 678 H Lymph % (Auto) Eddy % (Auto) Lymph # Seg Neutrophils % Seg Neuts % (Manual) Lymphocytes % (Manual) Nucleated RBC % Seg Neutrophils # Seg Neutrophils # Man Lymphocytes # (Manual) Monocytes # (Manual) PT INR APTT D-Dimer POC ABG pH ABG pH POC ABG pCO2 POC ABG pO2 ABG pO2 ABG HCO3 ABG O2 Saturation ABG Base Excess ABG Hemoglobin VBG pH Oxyhemoglobin Sodium Potassium Chloride Carbon Dioxide BUN Creatinine < 0.2 L Glucose 46 L POC Glucose 238 H Lactic Acid Calcium Phosphorus Magnesium Iron TIBC Direct Bilirubin AST ALT Alkaline Phosphatase Total Creatine Kinase CK-MB (CK-2) C-Reactive Protein Total Protein Albumin Vitamin B12 Urine WBC (Auto) Salicylates Acetaminophen Miscellaneous Test Crossmatch 04/13/19 04/13/19 04/13/19 11:56 17:27 23:57 WBC RBC Hgb Hct MCV MCH MCHC RDW Plt Count Lymph % (Auto) Eddy % (Auto) Lymph # Seg Neutrophils % Seg Neuts % (Manual) Lymphocytes % (Manual) Nucleated RBC % Seg Neutrophils # Seg Neutrophils # Man Lymphocytes # (Manual) Monocytes # (Manual) PT INR APTT D-Dimer POC ABG pH ABG pH POC ABG pCO2 POC ABG pO2 ABG pO2 ABG HCO3 ABG O2 Saturation ABG Base Excess ABG Hemoglobin VBG pH Oxyhemoglobin Sodium Potassium Chloride Carbon Dioxide BUN Creatinine Glucose POC Glucose 40 L 66 L 65 L Lactic Acid Calcium Phosphorus Magnesium Iron TIBC Direct Bilirubin AST ALT Alkaline Phosphatase Total Creatine Kinase CK-MB (CK-2) C-Reactive Protein Total Protein Albumin Vitamin B12 Urine WBC (Auto) Salicylates Acetaminophen Miscellaneous Test Crossmatch 04/14/19 04/14/19 04/14/19 05:28 08:20 08:20 WBC 17.8 H RBC 3.26 L Hgb Hct MCV 98 H MCH MCHC RDW 18.3 H Plt Count 622 H Lymph % (Auto) Eddy % (Auto) Lymph # Seg Neutrophils % Seg Neuts % (Manual) Lymphocytes % (Manual) Nucleated RBC % Seg Neutrophils # Seg Neutrophils # Man Lymphocytes # (Manual) Monocytes # (Manual) PT INR APTT D-Dimer POC ABG pH ABG pH POC ABG pCO2 POC ABG pO2 ABG pO2 ABG HCO3 ABG O2 Saturation ABG Base Excess ABG Hemoglobin VBG pH Oxyhemoglobin Sodium Potassium Chloride Carbon Dioxide BUN 6 L Creatinine < 0.2 L Glucose 154 H POC Glucose 149 H Lactic Acid Calcium Phosphorus Magnesium Iron TIBC Direct Bilirubin AST ALT Alkaline Phosphatase Total Creatine Kinase CK-MB (CK-2) C-Reactive Protein Total Protein Albumin Vitamin B12 Urine WBC (Auto) Salicylates Acetaminophen Miscellaneous Test Crossmatch 04/14/19 04/14/19 04/14/19 12:16 17:54 23:35 WBC RBC Hgb Hct MCV MCH MCHC RDW Plt Count Lymph % (Auto) Eddy % (Auto) Lymph # Seg Neutrophils % Seg Neuts % (Manual) Lymphocytes % (Manual) Nucleated RBC % Seg Neutrophils # Seg Neutrophils # Man Lymphocytes # (Manual) Monocytes # (Manual) PT INR APTT D-Dimer POC ABG pH ABG pH POC ABG pCO2 POC ABG pO2 ABG pO2 ABG HCO3 ABG O2 Saturation ABG Base Excess ABG Hemoglobin VBG pH Oxyhemoglobin Sodium Potassium Chloride Carbon Dioxide BUN Creatinine Glucose POC Glucose 176 H 224 H 173 H Lactic Acid Calcium Phosphorus Magnesium Iron TIBC Direct Bilirubin AST ALT Alkaline Phosphatase Total Creatine Kinase CK-MB (CK-2) C-Reactive Protein Total Protein Albumin Vitamin B12 Urine WBC (Auto) Salicylates Acetaminophen Miscellaneous Test Crossmatch 04/15/19 04/15/19 04/15/19 05:44 12:44 18:06 WBC RBC Hgb Hct MCV MCH MCHC RDW Plt Count Lymph % (Auto) Eddy % (Auto) Lymph # Seg Neutrophils % Seg Neuts % (Manual) Lymphocytes % (Manual) Nucleated RBC % Seg Neutrophils # Seg Neutrophils # Man Lymphocytes # (Manual) Monocytes # (Manual) PT INR APTT D-Dimer POC ABG pH 7.461 H ABG pH POC ABG pCO2 45.5 H POC ABG pO2 ABG pO2 ABG HCO3 ABG O2 Saturation ABG Base Excess ABG Hemoglobin VBG pH Oxyhemoglobin Sodium Potassium Chloride Carbon Dioxide BUN Creatinine Glucose POC Glucose 255 H 365 H Lactic Acid Calcium Phosphorus Magnesium Iron TIBC Direct Bilirubin AST ALT Alkaline Phosphatase Total Creatine Kinase CK-MB (CK-2) C-Reactive Protein Total Protein Albumin Vitamin B12 Urine WBC (Auto) Salicylates Acetaminophen Miscellaneous Test Crossmatch 04/15/19 04/15/19 04/16/19 18:06 23:34 00:40 WBC RBC Hgb Hct MCV MCH MCHC RDW Plt Count Lymph % (Auto) Eddy % (Auto) Lymph # Seg Neutrophils % Seg Neuts % (Manual) Lymphocytes % (Manual) Nucleated RBC % Seg Neutrophils # Seg Neutrophils # Man Lymphocytes # (Manual) Monocytes # (Manual) PT INR APTT D-Dimer POC ABG pH ABG pH POC ABG pCO2 POC ABG pO2 ABG pO2 ABG HCO3 ABG O2 Saturation ABG Base Excess ABG Hemoglobin VBG pH Oxyhemoglobin Sodium Potassium Chloride Carbon Dioxide BUN Creatinine Glucose POC Glucose 157 H 56 L 107 H Lactic Acid Calcium Phosphorus Magnesium Iron TIBC Direct Bilirubin AST ALT Alkaline Phosphatase Total Creatine Kinase CK-MB (CK-2) C-Reactive Protein Total Protein Albumin Vitamin B12 Urine WBC (Auto) Salicylates Acetaminophen Miscellaneous Test Crossmatch 04/16/19 04/16/19 04/16/19 09:06 09:06 11:21 WBC 12.9 H RBC 2.95 L Hgb 9.7 L Hct 28.9 L MCV 98 H MCH 33 H MCHC RDW 17.7 H Plt Count 581 H Lymph % (Auto) Eddy % (Auto) Lymph # Seg Neutrophils % Seg Neuts % (Manual) Lymphocytes % (Manual) Nucleated RBC % Seg Neutrophils # Seg Neutrophils # Man Lymphocytes # (Manual) Monocytes # (Manual) PT INR APTT D-Dimer POC ABG pH ABG pH POC ABG pCO2 POC ABG pO2 ABG pO2 ABG HCO3 ABG O2 Saturation ABG Base Excess ABG Hemoglobin VBG pH Oxyhemoglobin Sodium Potassium Chloride Carbon Dioxide 31 H BUN Creatinine 0.2 L Glucose 155 H POC Glucose 184 H Lactic Acid Calcium Phosphorus Magnesium Iron TIBC Direct Bilirubin AST ALT Alkaline Phosphatase Total Creatine Kinase CK-MB (CK-2) C-Reactive Protein Total Protein Albumin Vitamin B12 Urine WBC (Auto) Salicylates Acetaminophen Miscellaneous Test Crossmatch 04/16/19 04/16/19 04/16/19 17:28 20:17 23:09 WBC RBC Hgb Hct MCV MCH MCHC RDW Plt Count Lymph % (Auto) Edd[place] % (Auto) Lymph # Seg Neutrophils % Seg Neuts % (Manual) Lymphocytes % (Manual) Nucleated RBC % Seg Neutrophils # Seg Neutrophils # Man Lymphocytes # (Manual) Monocytes # (Manual) PT INR APTT D-Dimer POC ABG pH 7.479 H ABG pH POC ABG pCO2 POC ABG pO2 71 L ABG pO2 ABG HCO3 ABG O2 Saturation ABG Base Excess ABG Hemoglobin VBG pH Oxyhemoglobin Sodium Potassium Chloride Carbon Dioxide BUN Creatinine Glucose POC Glucose 173 H 178 H Lactic Acid Calcium Phosphorus Magnesium Iron TIBC Direct Bilirubin AST ALT Alkaline Phosphatase Total Creatine Kinase CK-MB (CK-2) C-Reactive Protein Total Protein Albumin Vitamin B12 Urine WBC (Auto) Salicylates Acetaminophen Miscellaneous Test Crossmatch 04/17/19 04/17/19 04/17/19 05:02 11:39 12:48 WBC RBC Hgb Hct MCV MCH MCHC RDW Plt Count Lymph % (Auto) Edd[place] % (Auto) Lymph # Seg Neutrophils % Seg Neuts % (Manual) Lymphocytes % (Manual) Nucleated RBC % Seg Neutrophils # Seg Neutrophils # Man Lymphocytes # (Manual) Monocytes # (Manual) PT INR APTT D-Dimer POC ABG pH 7.557 H ABG pH POC ABG pCO2 32.8 L POC ABG pO2 149 H ABG pO2 ABG HCO3 ABG O2 Saturation ABG Base Excess ABG Hemoglobin VBG pH Oxyhemoglobin Sodium Potassium Chloride Carbon Dioxide BUN Creatinine Glucose POC Glucose 252 H 124 H Lactic Acid Calcium Phosphorus Magnesium Iron TIBC Direct Bilirubin AST ALT Alkaline Phosphatase Total Creatine Kinase CK-MB (CK-2) C-Reactive Protein Total Protein Albumin Vitamin B12 Urine WBC (Auto) Salicylates Acetaminophen Miscellaneous Test Crossmatch 04/17/19 04/18/19 04/18/19 23:31 05:32 11:34 WBC RBC Hgb Hct MCV MCH MCHC RDW Plt Count Lymph % (Auto) Edd[place] % (Auto) Lymph # Seg Neutrophils % Seg Neuts % (Manual) Lymphocytes % (Manual) Nucleated RBC % Seg Neutrophils # Seg Neutrophils # Man Lymphocytes # (Manual) Monocytes # (Manual) PT INR APTT D-Dimer POC ABG pH ABG pH POC ABG pCO2 POC ABG pO2 ABG pO2 ABG HCO3 ABG O2 Saturation ABG Base Excess ABG Hemoglobin VBG pH Oxyhemoglobin Sodium Potassium Chloride Carbon Dioxide BUN Creatinine Glucose POC Glucose 149 H 334 H 344 H Lactic Acid Calcium Phosphorus Magnesium Iron TIBC Direct Bilirubin AST ALT Alkaline Phosphatase Total Creatine Kinase CK-MB (CK-2) C-Reactive Protein Total Protein Albumin Vitamin B12 Urine WBC (Auto) Salicylates Acetaminophen Miscellaneous Test Crossmatch 04/18/19 04/18/19 04/18/19 17:43 18:14 23:35 WBC RBC Hgb Hct MCV MCH MCHC RDW Plt Count Lymph % (Auto) Edd[place] % (Auto) Lymph # Seg Neutrophils % Seg Neuts % (Manual) Lymphocytes % (Manual) Nucleated RBC % Seg Neutrophils # Seg Neutrophils # Man Lymphocytes # (Manual) Monocytes # (Manual) PT INR APTT D-Dimer POC ABG pH ABG pH POC ABG pCO2 49.2 H POC ABG pO2 ABG pO2 ABG HCO3 ABG O2 Saturation ABG Base Excess ABG Hemoglobin VBG pH Oxyhemoglobin Sodium Potassium Chloride Carbon Dioxide BUN Creatinine Glucose POC Glucose 289 H 312 H Lactic Acid Calcium Phosphorus Magnesium Iron TIBC Direct Bilirubin AST ALT Alkaline Phosphatase Total Creatine Kinase CK-MB (CK-2) C-Reactive Protein Total Protein Albumin Vitamin B12 Urine WBC (Auto) Salicylates Acetaminophen Miscellaneous Test Crossmatch 04/19/19 04/19/19 04/19/19 04:35 05:55 12:26 WBC RBC Hgb Hct MCV MCH MCHC RDW Plt Count Lymph % (Auto) Eddy % (Auto) Lymph # Seg Neutrophils % Seg Neuts % (Manual) Lymphocytes % (Manual) Nucleated RBC % Seg Neutrophils # Seg Neutrophils # Man Lymphocytes # (Manual) Monocytes # (Manual) PT INR APTT D-Dimer POC ABG pH 7.565 H ABG pH POC ABG pCO2 POC ABG pO2 ABG pO2 ABG HCO3 ABG O2 Saturation ABG Base Excess ABG Hemoglobin VBG pH Oxyhemoglobin Sodium Potassium Chloride Carbon Dioxide BUN Creatinine Glucose POC Glucose 172 H 271 H Lactic Acid Calcium Phosphorus Magnesium Iron TIBC Direct Bilirubin AST ALT Alkaline Phosphatase Total Creatine Kinase CK-MB (CK-2) C-Reactive Protein Total Protein Albumin Vitamin B12 Urine WBC (Auto) Salicylates Acetaminophen Miscellaneous Test Crossmatch 04/19/19 04/19/19 04/19/19 17:54 21:10 23:35 WBC RBC Hgb Hct MCV MCH MCHC RDW Plt Count Lymph % (Auto) Edd[place] % (Auto) Lymph # Seg Neutrophils % Seg Neuts % (Manual) Lymphocytes % (Manual) Nucleated RBC % Seg Neutrophils # Seg Neutrophils # Man Lymphocytes # (Manual) Monocytes # (Manual) PT INR APTT D-Dimer POC ABG pH ABG pH POC ABG pCO2 POC ABG pO2 ABG pO2 ABG HCO3 ABG O2 Saturation ABG Base Excess ABG Hemoglobin VBG pH Oxyhemoglobin Sodium Potassium Chloride Carbon Dioxide BUN Creatinine Glucose POC Glucose 229 H 189 H 131 H Lactic Acid Calcium Phosphorus Magnesium Iron TIBC Direct Bilirubin AST ALT Alkaline Phosphatase Total Creatine Kinase CK-MB (CK-2) C-Reactive Protein Total Protein Albumin Vitamin B12 Urine WBC (Auto) Salicylates Acetaminophen Miscellaneous Test Crossmatch 04/20/19 04/20/19 04/20/19 05:42 11:58 17:32 WBC RBC Hgb Hct MCV MCH MCHC RDW Plt Count Lymph % (Auto) Eddy % (Auto) Lymph # Seg Neutrophils % Seg Neuts % (Manual) Lymphocytes % (Manual) Nucleated RBC % Seg Neutrophils # Seg Neutrophils # Man Lymphocytes # (Manual) Monocytes # (Manual) PT INR APTT D-Dimer POC ABG pH ABG pH POC ABG pCO2 POC ABG pO2 ABG pO2 ABG HCO3 ABG O2 Saturation ABG Base Excess ABG Hemoglobin VBG pH Oxyhemoglobin Sodium Potassium Chloride Carbon Dioxide BUN Creatinine Glucose POC Glucose 289 H 265 H 232 H Lactic Acid Calcium Phosphorus Magnesium Iron TIBC Direct Bilirubin AST ALT Alkaline Phosphatase Total Creatine Kinase CK-MB (CK-2) C-Reactive Protein Total Protein Albumin Vitamin B12 Urine WBC (Auto) Salicylates Acetaminophen Miscellaneous Test Crossmatch 04/21/19 04/21/19 04/21/19 00:02 05:13 12:41 WBC RBC Hgb Hct MCV MCH MCHC RDW Plt Count Lymph % (Auto) Eddy % (Auto) Lymph # Seg Neutrophils % Seg Neuts % (Manual) Lymphocytes % (Manual) Nucleated RBC % Seg Neutrophils # Seg Neutrophils # Man Lymphocytes # (Manual) Monocytes # (Manual) PT INR APTT D-Dimer POC ABG pH ABG pH POC ABG pCO2 POC ABG pO2 ABG pO2 ABG HCO3 ABG O2 Saturation ABG Base Excess ABG Hemoglobin VBG pH Oxyhemoglobin Sodium Potassium Chloride Carbon Dioxide BUN Creatinine Glucose POC Glucose 126 H 233 H 205 H Lactic Acid Calcium Phosphorus Magnesium Iron TIBC Direct Bilirubin AST ALT Alkaline Phosphatase Total Creatine Kinase CK-MB (CK-2) C-Reactive Protein Total Protein Albumin Vitamin B12 Urine WBC (Auto) Salicylates Acetaminophen Miscellaneous Test Crossmatch 04/21/19 04/22/19 04/22/19 23:42 03:57 03:57 WBC 11.5 H RBC 3.44 L Hgb Hct MCV MCH MCHC RDW 16.3 H Plt Count 510 H Lymph % (Auto) Eddy % (Auto) Lymph # Seg Neutrophils % Seg Neuts % (Manual) Lymphocytes % (Manual) Nucleated RBC % Seg Neutrophils # Seg Neutrophils # Man Lymphocytes # (Manual) Monocytes # (Manual) PT INR APTT D-Dimer POC ABG pH ABG pH POC ABG pCO2 POC ABG pO2 ABG pO2 ABG HCO3 ABG O2 Saturation ABG Base Excess ABG Hemoglobin VBG pH Oxyhemoglobin Sodium Potassium Chloride 96.3 L Carbon Dioxide BUN Creatinine 0.2 L Glucose 333 H POC Glucose 149 H Lactic Acid Calcium Phosphorus Magnesium Iron TIBC Direct Bilirubin AST 60 H ALT Alkaline Phosphatase 204 H Total Creatine Kinase CK-MB (CK-2) C-Reactive Protein Total Protein Albumin 3.1 L Vitamin B12 Urine WBC (Auto) Salicylates Acetaminophen Miscellaneous Test Crossmatch 04/22/19 04/22/19 04/22/19 05:18 12:03 18:17 WBC RBC Hgb Hct MCV MCH MCHC RDW Plt Count Lymph % (Auto) Eddy % (Auto) Lymph # Seg Neutrophils % Seg Neuts % (Manual) Lymphocytes % (Manual) Nucleated RBC % Seg Neutrophils # Seg Neutrophils # Man Lymphocytes # (Manual) Monocytes # (Manual) PT INR APTT D-Dimer POC ABG pH ABG pH POC ABG pCO2 POC ABG pO2 ABG pO2 ABG HCO3 ABG O2 Saturation ABG Base Excess ABG Hemoglobin VBG pH Oxyhemoglobin Sodium Potassium Chloride Carbon Dioxide BUN Creatinine Glucose POC Glucose 345 H 308 H 169 H Lactic Acid Calcium Phosphorus Magnesium Iron TIBC Direct Bilirubin AST ALT Alkaline Phosphatase Total Creatine Kinase CK-MB (CK-2) C-Reactive Protein Total Protein Albumin Vitamin B12 Urine WBC (Auto) Salicylates Acetaminophen Miscellaneous Test Crossmatch 04/23/19 04/23/19 04/23/19 00:14 05:43 11:15 WBC RBC Hgb Hct MCV MCH MCHC RDW Plt Count Lymph % (Auto) Eddy % (Auto) Lymph # Seg Neutrophils % Seg Neuts % (Manual) Lymphocytes % (Manual) Nucleated RBC % Seg Neutrophils # Seg Neutrophils # Man Lymphocytes # (Manual) Monocytes # (Manual) PT INR APTT D-Dimer POC ABG pH ABG pH POC ABG pCO2 POC ABG pO2 ABG pO2 ABG HCO3 ABG O2 Saturation ABG Base Excess ABG Hemoglobin VBG pH Oxyhemoglobin Sodium Potassium Chloride Carbon Dioxide BUN Creatinine Glucose POC Glucose 192 H 260 H 186 H Lactic Acid Calcium Phosphorus Magnesium Iron TIBC Direct Bilirubin AST ALT Alkaline Phosphatase Total Creatine Kinase CK-MB (CK-2) C-Reactive Protein Total Protein Albumin Vitamin B12 Urine WBC (Auto) Salicylates Acetaminophen Miscellaneous Test Crossmatch 04/23/19 04/23/19 04/24/19 15:44 21:30 00:09 WBC RBC Hgb Hct MCV MCH MCHC RDW Plt Count Lymph % (Auto) Eddy % (Auto) Lymph # Seg Neutrophils % Seg Neuts % (Manual) Lymphocytes % (Manual) Nucleated RBC % Seg Neutrophils # Seg Neutrophils # Man Lymphocytes # (Manual) Monocytes # (Manual) PT INR APTT D-Dimer POC ABG pH ABG pH POC ABG pCO2 POC ABG pO2 ABG pO2 ABG HCO3 ABG O2 Saturation ABG Base Excess ABG Hemoglobin VBG pH Oxyhemoglobin Sodium Potassium Chloride Carbon Dioxide BUN Creatinine Glucose POC Glucose 164 H 407 H 280 H Lactic Acid Calcium Phosphorus Magnesium Iron TIBC Direct Bilirubin AST ALT Alkaline Phosphatase Total Creatine Kinase CK-MB (CK-2) C-Reactive Protein Total Protein Albumin Vitamin B12 Urine WBC (Auto) Salicylates Acetaminophen Miscellaneous Test Crossmatch 04/24/19 04/24/19 04/24/19 06:01 06:39 14:51 WBC RBC Hgb Hct MCV MCH MCHC RDW Plt Count Lymph % (Auto) Eddy % (Auto) Lymph # Seg Neutrophils % Seg Neuts % (Manual) Lymphocytes % (Manual) Nucleated RBC % Seg Neutrophils # Seg Neutrophils # Man Lymphocytes # (Manual) Monocytes # (Manual) PT INR APTT D-Dimer POC ABG pH ABG pH POC ABG pCO2 POC ABG pO2 ABG pO2 ABG HCO3 ABG O2 Saturation ABG Base Excess ABG Hemoglobin VBG pH Oxyhemoglobin Sodium Potassium Chloride Carbon Dioxide BUN Creatinine Glucose POC Glucose 65 L 125 H 207 H Lactic Acid Calcium Phosphorus Magnesium Iron TIBC Direct Bilirubin AST ALT Alkaline Phosphatase Total Creatine Kinase CK-MB (CK-2) C-Reactive Protein Total Protein Albumin Vitamin B12 Urine WBC (Auto) Salicylates Acetaminophen Miscellaneous Test Crossmatch 04/24/19 04/25/19 04/25/19 18:03 01:46 05:56 WBC RBC Hgb Hct MCV MCH MCHC RDW Plt Count Lymph % (Auto) Eddy % (Auto) Lymph # Seg Neutrophils % Seg Neuts % (Manual) Lymphocytes % (Manual) Nucleated RBC % Seg Neutrophils # Seg Neutrophils # Man Lymphocytes # (Manual) Monocytes # (Manual) PT INR APTT D-Dimer POC ABG pH ABG pH POC ABG pCO2 POC ABG pO2 ABG pO2 ABG HCO3 ABG O2 Saturation ABG Base Excess ABG Hemoglobin VBG pH Oxyhemoglobin Sodium Potassium Chloride Carbon Dioxide BUN Creatinine Glucose POC Glucose 140 H 125 H 208 H Lactic Acid Calcium Phosphorus Magnesium Iron TIBC Direct Bilirubin AST ALT Alkaline Phosphatase Total Creatine Kinase CK-MB (CK-2) C-Reactive Protein Total Protein Albumin Vitamin B12 Urine WBC (Auto) Salicylates Acetaminophen Miscellaneous Test Crossmatch 04/25/19 04/25/19 04/25/19 08:12 13:06 18:04 WBC RBC Hgb Hct MCV MCH MCHC RDW Plt Count Lymph % (Auto) Eddy % (Auto) Lymph # Seg Neutrophils % Seg Neuts % (Manual) Lymphocytes % (Manual) Nucleated RBC % Seg Neutrophils # Seg Neutrophils # Man Lymphocytes # (Manual) Monocytes # (Manual) PT INR APTT D-Dimer POC ABG pH ABG pH POC ABG pCO2 POC ABG pO2 ABG pO2 ABG HCO3 ABG O2 Saturation ABG Base Excess ABG Hemoglobin VBG pH Oxyhemoglobin Sodium Potassium Chloride Carbon Dioxide BUN Creatinine Glucose POC Glucose 127 H 147 H 340 H Lactic Acid Calcium Phosphorus Magnesium Iron TIBC Direct Bilirubin AST ALT Alkaline Phosphatase Total Creatine Kinase CK-MB (CK-2) C-Reactive Protein Total Protein Albumin Vitamin B12 Urine WBC (Auto) Salicylates Acetaminophen Miscellaneous Test Crossmatch 04/26/19 04/26/19 04/26/19 00:16 05:15 11:26 WBC RBC Hgb Hct MCV MCH MCHC RDW Plt Count Lymph % (Auto) Eddy % (Auto) Lymph # Seg Neutrophils % Seg Neuts % (Manual) Lymphocytes % (Manual) Nucleated RBC % Seg Neutrophils # Seg Neutrophils # Man Lymphocytes # (Manual) Monocytes # (Manual) PT INR APTT D-Dimer POC ABG pH ABG pH POC ABG pCO2 POC ABG pO2 ABG pO2 ABG HCO3 ABG O2 Saturation ABG Base Excess ABG Hemoglobin VBG pH Oxyhemoglobin Sodium Potassium Chloride Carbon Dioxide BUN Creatinine Glucose POC Glucose 137 H 136 H 365 H Lactic Acid Calcium Phosphorus Magnesium Iron TIBC Direct Bilirubin AST ALT Alkaline Phosphatase Total Creatine Kinase CK-MB (CK-2) C-Reactive Protein Total Protein Albumin Vitamin B12 Urine WBC (Auto) Salicylates Acetaminophen Miscellaneous Test Crossmatch 04/26/19 04/26/19 04/27/19 18:03 21:30 06:14 WBC RBC Hgb Hct MCV MCH MCHC RDW Plt Count Lymph % (Auto) Edd[place] % (Auto) Lymph # Seg Neutrophils % Seg Neuts % (Manual) Lymphocytes % (Manual) Nucleated RBC % Seg Neutrophils # Seg Neutrophils # Man Lymphocytes # (Manual) Monocytes # (Manual) PT INR APTT D-Dimer POC ABG pH ABG pH POC ABG pCO2 POC ABG pO2 ABG pO2 ABG HCO3 ABG O2 Saturation ABG Base Excess ABG Hemoglobin VBG pH Oxyhemoglobin Sodium Potassium Chloride Carbon Dioxide BUN Creatinine Glucose POC Glucose 124 H 231 H 199 H Lactic Acid Calcium Phosphorus Magnesium Iron TIBC Direct Bilirubin AST ALT Alkaline Phosphatase Total Creatine Kinase CK-MB (CK-2) C-Reactive Protein Total Protein Albumin Vitamin B12 Urine WBC (Auto) Salicylates Acetaminophen Miscellaneous Test Crossmatch 04/27/19 04/27/19 04/28/19 16:39 22:22 05:55 WBC RBC Hgb Hct MCV MCH MCHC RDW Plt Count Lymph % (Auto) [place] % (Auto) Lymph # Seg Neutrophils % Seg Neuts % (Manual) Lymphocytes % (Manual) Nucleated RBC % Seg Neutrophils # Seg Neutrophils # Man Lymphocytes # (Manual) Monocytes # (Manual) PT INR APTT D-Dimer POC ABG pH ABG pH POC ABG pCO2 POC ABG pO2 ABG pO2 ABG HCO3 ABG O2 Saturation ABG Base Excess ABG Hemoglobin VBG pH Oxyhemoglobin Sodium Potassium Chloride Carbon Dioxide BUN Creatinine Glucose POC Glucose 171 H 183 H 207 H Lactic Acid Calcium Phosphorus Magnesium Iron TIBC Direct Bilirubin AST ALT Alkaline Phosphatase Total Creatine Kinase CK-MB (CK-2) C-Reactive Protein Total Protein Albumin Vitamin B12 Urine WBC (Auto) Salicylates Acetaminophen Miscellaneous Test Crossmatch 04/28/19 04/28/19 04/29/19 12:30 17:07 00:03 WBC RBC Hgb Hct MCV MCH MCHC RDW Plt Count Lymph % (Auto) [place] % (Auto) Lymph # Seg Neutrophils % Seg Neuts % (Manual) Lymphocytes % (Manual) Nucleated RBC % Seg Neutrophils # Seg Neutrophils # Man Lymphocytes # (Manual) Monocytes # (Manual) PT INR APTT D-Dimer POC ABG pH ABG pH POC ABG pCO2 POC ABG pO2 ABG pO2 ABG HCO3 ABG O2 Saturation ABG Base Excess ABG Hemoglobin VBG pH Oxyhemoglobin Sodium Potassium Chloride Carbon Dioxide BUN Creatinine Glucose POC Glucose 199 H 233 H 217 H Lactic Acid Calcium Phosphorus Magnesium Iron TIBC Direct Bilirubin AST ALT Alkaline Phosphatase Total Creatine Kinase CK-MB (CK-2) C-Reactive Protein Total Protein Albumin Vitamin B12 Urine WBC (Auto) Salicylates Acetaminophen Miscellaneous Test Crossmatch 04/29/19 04/29/19 04/29/19 05:51 09:43 09:43 WBC RBC 3.36 L Hgb Hct MCV MCH MCHC RDW 16.3 H Plt Count Lymph % (Auto) 11.1 L Eddy % (Auto) Lymph # Seg Neutrophils % 81.4 H Seg Neuts % (Manual) Lymphocytes % (Manual) Nucleated RBC % Seg Neutrophils # 9.0 H Seg Neutrophils # Man Lymphocytes # (Manual) Monocytes # (Manual) PT INR APTT D-Dimer POC ABG pH ABG pH POC ABG pCO2 POC ABG pO2 ABG pO2 ABG HCO3 ABG O2 Saturation ABG Base Excess ABG Hemoglobin VBG pH Oxyhemoglobin Sodium Potassium Chloride Carbon Dioxide BUN 21 H Creatinine 0.3 L Glucose 316 H POC Glucose 149 H Lactic Acid Calcium Phosphorus Magnesium Iron TIBC Direct Bilirubin AST ALT Alkaline Phosphatase Total Creatine Kinase CK-MB (CK-2) C-Reactive Protein Total Protein Albumin Vitamin B12 Urine WBC (Auto) Salicylates Acetaminophen Miscellaneous Test Crossmatch 04/29/19 04/29/19 04/29/19 12:28 18:02 23:49 WBC RBC Hgb Hct MCV MCH MCHC RDW Plt Count Lymph % (Auto) Eddy % (Auto) Lymph # Seg Neutrophils % Seg Neuts % (Manual) Lymphocytes % (Manual) Nucleated RBC % Seg Neutrophils # Seg Neutrophils # Man Lymphocytes # (Manual) Monocytes # (Manual) PT INR APTT D-Dimer POC ABG pH ABG pH POC ABG pCO2 POC ABG pO2 ABG pO2 ABG HCO3 ABG O2 Saturation ABG Base Excess ABG Hemoglobin VBG pH Oxyhemoglobin Sodium Potassium Chloride Carbon Dioxide BUN Creatinine Glucose POC Glucose 368 H 185 H 137 H Lactic Acid Calcium Phosphorus Magnesium Iron TIBC Direct Bilirubin AST ALT Alkaline Phosphatase Total Creatine Kinase CK-MB (CK-2) C-Reactive Protein Total Protein Albumin Vitamin B12 Urine WBC (Auto) Salicylates Acetaminophen Miscellaneous Test Crossmatch 04/30/19 04/30/19 04/30/19 05:56 09:08 09:08 WBC RBC 3.48 L Hgb Hct MCV MCH MCHC RDW 15.9 H Plt Count Lymph % (Auto) Eddy % (Auto) Lymph # Seg Neutrophils % 73.7 H Seg Neuts % (Manual) Lymphocytes % (Manual) Nucleated RBC % Seg Neutrophils # Seg Neutrophils # Man Lymphocytes # (Manual) Monocytes # (Manual) PT INR APTT D-Dimer POC ABG pH ABG pH POC ABG pCO2 POC ABG pO2 ABG pO2 ABG HCO3 ABG O2 Saturation ABG Base Excess ABG Hemoglobin VBG pH Oxyhemoglobin Sodium Potassium Chloride Carbon Dioxide BUN 25 H Creatinine 0.3 L Glucose 290 H POC Glucose 318 H Lactic Acid Calcium Phosphorus Magnesium Iron TIBC Direct Bilirubin AST ALT Alkaline Phosphatase Total Creatine Kinase CK-MB (CK-2) C-Reactive Protein Total Protein Albumin Vitamin B12 Urine WBC (Auto) Salicylates Acetaminophen Miscellaneous Test Crossmatch 04/30/19 04/30/19 04/30/19 11:32 17:19 21:36 WBC RBC Hgb Hct MCV MCH MCHC RDW Plt Count Lymph % (Auto) Eddy % (Auto) Lymph # Seg Neutrophils % Seg Neuts % (Manual) Lymphocytes % (Manual) Nucleated RBC % Seg Neutrophils # Seg Neutrophils # Man Lymphocytes # (Manual) Monocytes # (Manual) PT INR APTT D-Dimer POC ABG pH ABG pH POC ABG pCO2 POC ABG pO2 ABG pO2 ABG HCO3 ABG O2 Saturation ABG Base Excess ABG Hemoglobin VBG pH Oxyhemoglobin Sodium Potassium Chloride Carbon Dioxide BUN Creatinine Glucose POC Glucose 225 H 110 H 371 H Lactic Acid Calcium Phosphorus Magnesium Iron TIBC Direct Bilirubin AST ALT Alkaline Phosphatase Total Creatine Kinase CK-MB (CK-2) C-Reactive Protein Total Protein Albumin Vitamin B12 Urine WBC (Auto) Salicylates Acetaminophen Miscellaneous Test Crossmatch 04/30/19 05/01/19 05/01/19 Unknown 05:29 11:44 WBC RBC Hgb Hct MCV MCH MCHC RDW Plt Count Lymph % (Auto) Eddy % (Auto) Lymph # Seg Neutrophils % Seg Neuts % (Manual) Lymphocytes % (Manual) Nucleated RBC % Seg Neutrophils # Seg Neutrophils # Man Lymphocytes # (Manual) Monocytes # (Manual) PT INR APTT D-Dimer POC ABG pH ABG pH POC ABG pCO2 POC ABG pO2 ABG pO2 ABG HCO3 ABG O2 Saturation ABG Base Excess ABG Hemoglobin VBG pH Oxyhemoglobin Sodium Potassium Chloride Carbon Dioxide BUN Creatinine Glucose POC Glucose 386 H 227 H Lactic Acid Calcium Phosphorus Magnesium Iron TIBC Direct Bilirubin AST ALT Alkaline Phosphatase Total Creatine Kinase CK-MB (CK-2) C-Reactive Protein Total Protein Albumin Vitamin B12 Urine WBC (Auto) 17.0 H Salicylates Acetaminophen Miscellaneous Test Crossmatch 05/02/19 05/02/19 05/03/19 05:51 11:21 00:25 WBC RBC Hgb Hct MCV MCH MCHC RDW Plt Count Lymph % (Auto) Eddy % (Auto) Lymph # Seg Neutrophils % Seg Neuts % (Manual) Lymphocytes % (Manual) Nucleated RBC % Seg Neutrophils # Seg Neutrophils # Man Lymphocytes # (Manual) Monocytes # (Manual) PT INR APTT D-Dimer POC ABG pH ABG pH POC ABG pCO2 POC ABG pO2 ABG pO2 ABG HCO3 ABG O2 Saturation ABG Base Excess ABG Hemoglobin VBG pH Oxyhemoglobin Sodium Potassium Chloride Carbon Dioxide BUN Creatinine Glucose POC Glucose 280 H 191 H 262 H Lactic Acid Calcium Phosphorus Magnesium Iron TIBC Direct Bilirubin AST ALT Alkaline Phosphatase Total Creatine Kinase CK-MB (CK-2) C-Reactive Protein Total Protein Albumin Vitamin B12 Urine WBC (Auto) Salicylates Acetaminophen Miscellaneous Test Crossmatch 05/03/19 05/03/19 05/03/19 04:57 04:57 06:20 WBC RBC 3.45 L Hgb Hct MCV MCH MCHC RDW 15.5 H Plt Count Lymph % (Auto) Eddy % (Auto) 7.6 H Lymph # Seg Neutrophils % Seg Neuts % (Manual) Lymphocytes % (Manual) Nucleated RBC % Seg Neutrophils # Seg Neutrophils # Man Lymphocytes # (Manual) Monocytes # (Manual) PT INR APTT D-Dimer POC ABG pH ABG pH POC ABG pCO2 POC ABG pO2 ABG pO2 ABG HCO3 ABG O2 Saturation ABG Base Excess ABG Hemoglobin VBG pH Oxyhemoglobin Sodium Potassium Chloride Carbon Dioxide BUN 23 H Creatinine 0.2 L Glucose 101 H POC Glucose 131 H Lactic Acid Calcium Phosphorus Magnesium Iron TIBC Direct Bilirubin AST ALT Alkaline Phosphatase Total Creatine Kinase CK-MB (CK-2) C-Reactive Protein Total Protein Albumin Vitamin B12 Urine WBC (Auto) Salicylates Acetaminophen Miscellaneous Test Crossmatch 05/03/19 05/04/1919 23:58 12:05 16:56 WBC RBC Hgb Hct MCV MCH MCHC RDW Plt Count Lymph % (Auto) Eddy % (Auto) Lymph # Seg Neutrophils % Seg Neuts % (Manual) Lymphocytes % (Manual) Nucleated RBC % Seg Neutrophils # Seg Neutrophils # Man Lymphocytes # (Manual) Monocytes # (Manual) PT INR APTT D-Dimer POC ABG pH ABG pH POC ABG pCO2 POC ABG pO2 ABG pO2 ABG HCO3 ABG O2 Saturation ABG Base Excess ABG Hemoglobin VBG pH Oxyhemoglobin Sodium Potassium Chloride Carbon Dioxide BUN Creatinine Glucose POC Glucose 160 H 128 H 116 H Lactic Acid Calcium Phosphorus Magnesium Iron TIBC Direct Bilirubin AST ALT Alkaline Phosphatase Total Creatine Kinase CK-MB (CK-2) C-Reactive Protein Total Protein Albumin Vitamin B12 Urine WBC (Auto) Salicylates Acetaminophen Miscellaneous Test Crossmatch 05/04/19 05/05/19 05/05/19 23:31 03:24 11:43 WBC RBC Hgb Hct MCV MCH MCHC RDW Plt Count Lymph % (Auto) Eddy % (Auto) Lymph # Seg Neutrophils % Seg Neuts % (Manual) Lymphocytes % (Manual) Nucleated RBC % Seg Neutrophils # Seg Neutrophils # Man Lymphocytes # (Manual) Monocytes # (Manual) PT INR APTT D-Dimer POC ABG pH ABG pH POC ABG pCO2 POC ABG pO2 ABG pO2 ABG HCO3 ABG O2 Saturation ABG Base Excess ABG Hemoglobin VBG pH Oxyhemoglobin Sodium Potassium Chloride Carbon Dioxide BUN Creatinine Glucose POC Glucose 204 H 194 H 202 H Lactic Acid Calcium Phosphorus Magnesium Iron TIBC Direct Bilirubin AST ALT Alkaline Phosphatase Total Creatine Kinase CK-MB (CK-2) C-Reactive Protein Total Protein Albumin Vitamin B12 Urine WBC (Auto) Salicylates Acetaminophen Miscellaneous Test Crossmatch 05/05/19 05/06/19 05/06/19 21:07 05:16 17:08 WBC RBC Hgb Hct MCV MCH MCHC RDW Plt Count Lymph % (Auto) Eddy % (Auto) Lymph # Seg Neutrophils % Seg Neuts % (Manual) Lymphocytes % (Manual) Nucleated RBC % Seg Neutrophils # Seg Neutrophils # Man Lymphocytes # (Manual) Monocytes # (Manual) PT INR APTT D-Dimer POC ABG pH ABG pH POC ABG pCO2 POC ABG pO2 ABG pO2 ABG HCO3 ABG O2 Saturation ABG Base Excess ABG Hemoglobin VBG pH Oxyhemoglobin Sodium Potassium Chloride Carbon Dioxide BUN Creatinine Glucose POC Glucose 128 H 239 H 64 L Lactic Acid Calcium Phosphorus Magnesium Iron TIBC Direct Bilirubin AST ALT Alkaline Phosphatase Total Creatine Kinase CK-MB (CK-2) C-Reactive Protein Total Protein Albumin Vitamin B12 Urine WBC (Auto) Salicylates Acetaminophen Miscellaneous Test Crossmatch 05/07/19 05/07/19 05/07/19 05:12 08:00 12:13 WBC RBC Hgb Hct MCV MCH MCHC RDW Plt Count Lymph % (Auto) Eddy % (Auto) Lymph # Seg Neutrophils % Seg Neuts % (Manual) Lymphocytes % (Manual) Nucleated RBC % Seg Neutrophils # Seg Neutrophils # Man Lymphocytes # (Manual) Monocytes # (Manual) PT INR APTT D-Dimer POC ABG pH ABG pH POC ABG pCO2 POC ABG pO2 ABG pO2 ABG HCO3 ABG O2 Saturation ABG Base Excess ABG Hemoglobin VBG pH Oxyhemoglobin Sodium Potassium Chloride Carbon Dioxide BUN Creatinine Glucose POC Glucose 315 H 193 H 129 H Lactic Acid Calcium Phosphorus Magnesium Iron TIBC Direct Bilirubin AST ALT Alkaline Phosphatase Total Creatine Kinase CK-MB (CK-2) C-Reactive Protein Total Protein Albumin Vitamin B12 Urine WBC (Auto) Salicylates Acetaminophen Miscellaneous Test Crossmatch 05/07/19 05/07/19 05/08/19 17:00 22:58 00:38 WBC RBC Hgb Hct MCV MCH MCHC RDW Plt Count Lymph % (Auto) Eddy % (Auto) Lymph # Seg Neutrophils % Seg Neuts % (Manual) Lymphocytes % (Manual) Nucleated RBC % Seg Neutrophils # Seg Neutrophils # Man Lymphocytes # (Manual) Monocytes # (Manual) PT INR APTT D-Dimer POC ABG pH ABG pH POC ABG pCO2 POC ABG pO2 ABG pO2 ABG HCO3 ABG O2 Saturation ABG Base Excess ABG Hemoglobin VBG pH Oxyhemoglobin Sodium Potassium Chloride Carbon Dioxide BUN Creatinine Glucose POC Glucose 331 H 341 H 369 H Lactic Acid Calcium Phosphorus Magnesium Iron TIBC Direct Bilirubin AST ALT Alkaline Phosphatase Total Creatine Kinase CK-MB (CK-2) C-Reactive Protein Total Protein Albumin Vitamin B12 Urine WBC (Auto) Salicylates Acetaminophen Miscellaneous Test Crossmatch 05/08/19 05/08/19 05/08/19 06:06 07:58 12:38 WBC RBC Hgb Hct MCV MCH MCHC RDW Plt Count Lymph % (Auto) Eddy % (Auto) Lymph # Seg Neutrophils % Seg Neuts % (Manual) Lymphocytes % (Manual) Nucleated RBC % Seg Neutrophils # Seg Neutrophils # Man Lymphocytes # (Manual) Monocytes # (Manual) PT INR APTT D-Dimer POC ABG pH ABG pH POC ABG pCO2 POC ABG pO2 ABG pO2 ABG HCO3 ABG O2 Saturation ABG Base Excess ABG Hemoglobin VBG pH Oxyhemoglobin Sodium Potassium Chloride Carbon Dioxide BUN Creatinine Glucose POC Glucose 191 H 165 H 296 H Lactic Acid Calcium Phosphorus Magnesium Iron TIBC Direct Bilirubin AST ALT Alkaline Phosphatase Total Creatine Kinase CK-MB (CK-2) C-Reactive Protein Total Protein Albumin Vitamin B12 Urine WBC (Auto) Salicylates Acetaminophen Miscellaneous Test Crossmatch 05/08/19 05/08/19 05/09/19 18:02 21:56 00:18 WBC RBC Hgb Hct MCV MCH MCHC RDW Plt Count Lymph % (Auto) Eddy % (Auto) Lymph # Seg Neutrophils % Seg Neuts % (Manual) Lymphocytes % (Manual) Nucleated RBC % Seg Neutrophils # Seg Neutrophils # Man Lymphocytes # (Manual) Monocytes # (Manual) PT INR APTT D-Dimer POC ABG pH ABG pH POC ABG pCO2 POC ABG pO2 ABG pO2 ABG HCO3 ABG O2 Saturation ABG Base Excess ABG Hemoglobin VBG pH Oxyhemoglobin Sodium Potassium Chloride Carbon Dioxide BUN Creatinine Glucose POC Glucose 247 H 212 H 182 H Lactic Acid Calcium Phosphorus Magnesium Iron TIBC Direct Bilirubin AST ALT Alkaline Phosphatase Total Creatine Kinase CK-MB (CK-2) C-Reactive Protein Total Protein Albumin Vitamin B12 Urine WBC (Auto) Salicylates Acetaminophen Miscellaneous Test Crossmatch 05/09/19 05/09/19 05/09/19 04:30 04:30 05:27 WBC RBC Hgb Hct MCV MCH MCHC RDW Plt Count Lymph % (Auto) Eddy % (Auto) 10.1 H Lymph # Seg Neutrophils % Seg Neuts % (Manual) Lymphocytes % (Manual) Nucleated RBC % Seg Neutrophils # Seg Neutrophils # Man Lymphocytes # (Manual) Monocytes # (Manual) PT INR APTT D-Dimer POC ABG pH ABG pH POC ABG pCO2 POC ABG pO2 ABG pO2 ABG HCO3 ABG O2 Saturation ABG Base Excess ABG Hemoglobin VBG pH Oxyhemoglobin Sodium Potassium Chloride Carbon Dioxide BUN 19 H Creatinine 0.2 L Glucose 108 H POC Glucose 115 H Lactic Acid Calcium Phosphorus Magnesium Iron TIBC Direct Bilirubin AST ALT Alkaline Phosphatase Total Creatine Kinase CK-MB (CK-2) C-Reactive Protein Total Protein Albumin Vitamin B12 Urine WBC (Auto) Salicylates Acetaminophen Miscellaneous Test Crossmatch 05/09/19 11:52 WBC RBC Hgb Hct MCV MCH MCHC RDW Plt Count Lymph % (Auto) Eddy % (Auto) Lymph # Seg Neutrophils % Seg Neuts % (Manual) Lymphocytes % (Manual) Nucleated RBC % Seg Neutrophils # Seg Neutrophils # Man Lymphocytes # (Manual) Monocytes # (Manual) PT INR APTT D-Dimer POC ABG pH ABG pH POC ABG pCO2 POC ABG pO2 ABG pO2 ABG HCO3 ABG O2 Saturation ABG Base Excess ABG Hemoglobin VBG pH Oxyhemoglobin Sodium Potassium Chloride Carbon Dioxide BUN Creatinine Glucose POC Glucose 171 H Lactic Acid Calcium Phosphorus Magnesium Iron TIBC Direct Bilirubin AST ALT Alkaline Phosphatase Total Creatine Kinase CK-MB (CK-2) C-Reactive Protein Total Protein Albumin Vitamin B12 Urine WBC (Auto) Salicylates Acetaminophen Miscellaneous Test Crossmatch Allied health notes reviewed: nursing
[2019-05-09] MEDS: LANTUS SUB-Q SCH (22:20)
[2019-05-10] MEDS: HumaLOG SUB-Q SCH ×4 (01:27→17:07)
[2019-05-10] MEDS: METOPROLOL PO SCH ×2 (11:37→21:04)
[2019-05-10] MEDS: PEPCID PO SCH ×2 (11:37→21:03)
[2019-05-10] MEDS: KEPPRA PO SCH ×2 (11:37→21:03)
[2019-05-10] MEDS: ENOXAPARIN SUB-Q SCH (11:39)
[2019-05-10] MEDS: ROBINUL FEEDTUBE SCH ×3 (11:39→21:04)
[2019-05-10] MEDS: TYLENOL PO PRN ×2 (13:46→21:03)
--- NOTE | 2019-05-10 16:08 | Progress Note ---
Assessment and Plan Uncontrolled DM type 1 with hyperglycemia - cont. basal insulin Lantus - cont. SSI - adjust insulin dose as needed to prevent hypo/hyperglycemia Acute respiratory failure s/p intubated, off vent - s/p trach and peg, on 5 L of oxygen - Tracheostomy re-adjusted on 04/17/19 - Pulm following, on nebs - Aspiration precautions Acute anoxic encephalopathy, POA - from cardiac arrest - MR concerning for anoxic Brain injury Cardiac arrest s/p resuscitation - likely 2/2 severe hyperglycemia - preserved EF on 2D echo Generalized Anasacara, stable now -Given a dose of Bumex s/p severe DKA, resolved - BG was 2200 on admission Shock hypotensive +/- sepsis - resolved Now off pressors. Was on vasopressin, Levophed, Phenylephrine Sepsis with possible aspiration PNA - evident on CXR on admission with left sided infiltrates - Competed abx - Leucocytosis and thrombocytosis are likely reactive from hepatic subcapsular hematoma -liver lesion not consistent with infection per ID UTI, Patient had low-grade temp 04/30/19 -UA suggestive of UTI -Urine culture showed enterococcus faecalis, and hanks sensitive. -Patient started on Rocephin on 05/01/19 - completed Head lice - multiple dosing of Permethin given, resolved Acute renal failure, likely vasomotor nephropathy - resolved Anemia, acute on chronic - no sign of blood loss - s/p 2 Units PRBC transfused Hyperkalemia, resolved with fluid and insulin Hypernatremia Resolved hypokalemia, resolved Shock liver with elevated LFT and Coagulopathy - due to cardiac arrest and hypotension - cont to monitor Liver lesion - ID Physician following - Discontinued abx, not consistent with infection as noted above Hypermagnesemia - monitor levels as needed Hyperphosphatemia -cont to monitor, improved Stage 1 sacral ulcer, poa - upper ext blisters - pressure ulcer prevention strategies - wound care VTE Prophylaxis with Lovenox Poor prognosis DNR status Disposition: continue inpatient care, await placement in [place], [place] 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 Her last well-known time was 10:30 in the morning of presentation, she was traveling with a friend, she was unresponsive in the back seat. EMS was called, CPR was started and continued here in the emergency room. Patient was intubated in the ER, noted hypotensive started on dobutamine, epinephrine and Levophed drip, given IV fluids, found to be in DKA with BG ~2200, several metabolic derangements - placed on insulin drip and admitted to ICU. BP improved and she was weaned off pressors. Pt off pressors and extubated. Transferred to floor awaiting placement Subjective Date of service: 05/10/19 Principal diagnosis: Ac Hypoxemic Resp Failure; DKA; Severe sepsis with shock; ANGELICA Interval history: Patient seen and examined Patient remained on trach with t-piece no family members around, nonverbal and doesnot follow commend discussed with RN at bedside with plan of care Objective - Constitutional Vitals: Vital Signs - 12hr 05/10/19 05/10/19 05/10/19 05:47 08:22 08:30 Temperature 98.7 F Pulse Rate 127 H Respiratory 16 18 Rate Blood Pressure 134/89 O2 Sat by Pulse 93 Oximetry O2 Sat by Pulse 99 Oximetry [ Assessment] 05/10/19 05/10/19 05/10/19 10:00 11:37 12:10 Temperature 97.6 F Pulse Rate 92 H 114 H Respiratory 20 Rate Blood Pressure 125/83 133/93 O2 Sat by Pulse 98 93 Oximetry O2 Sat by Pulse Oximetry [ Assessment] - Labs CBC & Chem 7: 05/09/19 04:30 05/09/19 04:30 Labs: Abnormal lab results 05/09/19 05/09/19 05/09/19 Range/Units 04:30 17:43 23:53 POC Glucose 113 H 274 H (70-105) Hemoglobin A1c 6.3 H (4-6) % 05/10/19 05/10/19 Range/Units 06:30 11:39 POC Glucose 160 H 150 H (70-105) Hemoglobin A1c (4-6) %
[2019-05-10] MEDS: LANTUS SUB-Q SCH (21:05)
[2019-05-11] MEDS: HumaLOG SUB-Q SCH ×4 (00:23→17:17)
[2019-05-11] MEDS: SIMPLE SYRUP FEEDTUBE PRN (06:37)
[2019-05-11] MEDS: ENOXAPARIN SUB-Q SCH (09:14)
[2019-05-11] MEDS: ROBINUL FEEDTUBE SCH ×3 (09:15→20:54)
[2019-05-11] MEDS: METOPROLOL PO SCH ×2 (09:15→23:23)
[2019-05-11] MEDS: PEPCID PO SCH ×2 (09:15→23:23)
[2019-05-11] MEDS: KEPPRA PO SCH ×2 (09:15→23:23)
[2019-05-11] MEDS: TRANSDERM-SCOP TD SCH (11:31)
--- NOTE | 2019-05-11 11:44 | Progress Note ---
Assessment and Plan Uncontrolled DM type 1 with hyperglycemia - cont. basal insulin Lantus - cont. SSI - adjust insulin dose as needed to prevent hypo/hyperglycemia Acute respiratory failure s/p intubated, off vent - s/p trach and peg, on 5 L of oxygen - Tracheostomy re-adjusted on 04/17/19 - Pulm following, on nebs - Aspiration precautions Acute anoxic encephalopathy, POA - from cardiac arrest - MR concerning for anoxic Brain injury Cardiac arrest s/p resuscitation - likely 2/2 severe hyperglycemia - preserved EF on 2D echo Generalized Anasacara, stable now -Given a dose of Bumex s/p severe DKA, resolved - BG was 2200 on admission Shock hypotensive +/- sepsis - resolved Now off pressors. Was on vasopressin, Levophed, Phenylephrine Sepsis with possible aspiration PNA - evident on CXR on admission with left sided infiltrates - Competed abx - Leucocytosis and thrombocytosis are likely reactive from hepatic subcapsular hematoma -liver lesion not consistent with infection per ID UTI, Patient had low-grade temp 04/30/19 -UA suggestive of UTI -Urine culture showed enterococcus faecalis, and hanks sensitive. -Patient started on Rocephin on 05/01/19 - completed Head lice - multiple dosing of Permethin given, resolved Acute renal failure, likely vasomotor nephropathy - resolved Anemia, acute on chronic - no sign of blood loss - s/p 2 Units PRBC transfused Hyperkalemia, resolved with fluid and insulin Hypernatremia Resolved hypokalemia, resolved Shock liver with elevated LFT and Coagulopathy - due to cardiac arrest and hypotension - cont to monitor Liver lesion - ID Physician following - Discontinued abx, not consistent with infection as noted above Hypermagnesemia - monitor levels as needed Hyperphosphatemia -cont to monitor, improved Stage 1 sacral ulcer, poa - upper ext blisters - pressure ulcer prevention strategies - wound care VTE Prophylaxis with Lovenox Poor prognosis DNR status Disposition: continue inpatient care, 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 Her last well-known time was 10:30 in the morning of presentation, she was traveling with a friend, she was unresponsive in the back seat. EMS was called, CPR was started and continued here in the emergency room. Patient was intubated in the ER, noted hypotensive started on dobutamine, epinephrine and Levophed drip, given IV fluids, found to be in DKA with BG ~2200, several metabolic derangements - placed on insulin drip and admitted to ICU. BP improved and she was weaned off pressors. Pt off pressors and extubated. Transferred to floor awaiting placement Subjective Date of service: 05/11/19 Principal diagnosis: Ac Hypoxemic Resp Failure; DKA; Severe sepsis with shock; ANGELICA Interval history: Patient seen and examined Patient remained on trach with t-piece no family members around, nonverbal and doesnot follow commend discussed with RN at bedside with plan of care Objective - Exam Narrative Exam: General appearance: Present: nonverbal, on trach - EENT Eyes: no congestion ENT: clear oral mucosa Ears: bilateral: normal - Neck Neck: no masses or JVD, no carotid bruits - Respiratory Respiratory effort: on trach w/o vent Respiratory: bilateral: CTA - Cardiovascular Rhythm: other (tachycardic) Heart Sounds: Present: S1 & S2. Absent: gallop, rub Extremities: pulses intact, No edema, normal color - Gastrointestinal General gastrointestinal: Present: soft, non-distended, normal bowel sounds - Integumentary Integumentary: clear, warm, dry - Musculoskeletal Musculoskeletal: other (no joint swelling) - Neurologic Neurologic: other (unable to assess), does not follow commend - Psychiatric Psychiatric: other (unable to assess) - Constitutional Vitals: Vital Signs - 12hr 05/11/19 05/11/19 05/11/19 04:26 08:31 08:32 Temperature 99.1 F Pulse Rate 126 H Respiratory 24 Rate Blood Pressure 133/94 O2 Sat by Pulse 97 98 Oximetry O2 Sat by Pulse 98 Oximetry [ Assessment] 05/11/19 09:15 Temperature Pulse Rate 135 H Respiratory Rate Blood Pressure 134/94 O2 Sat by Pulse Oximetry O2 Sat by Pulse Oximetry [ Assessment] - Labs CBC & Chem 7: 05/09/19 04:30 05/09/19 04:30 Labs: Abnormal lab results 05/10/19 05/11/19 05/11/19 Range/Units 16:45 00:25 06:40 POC Glucose 176 H 114 H 63 L (70-105)
[2019-05-11] MEDS: DURAGESIC TD SCH (13:02)
[2019-05-11] MEDS: LANTUS SUB-Q SCH (23:25)
[2019-05-12] MEDS: HumaLOG SUB-Q SCH ×4 (00:28→17:25)
[2019-05-12] MEDS: ENOXAPARIN SUB-Q SCH (09:25)
[2019-05-12] MEDS: PEPCID PO SCH ×2 (09:25→22:28)
[2019-05-12] MEDS: KEPPRA PO SCH ×2 (09:25→22:28)
[2019-05-12] MEDS: ROBINUL FEEDTUBE SCH ×3 (09:30→22:28)
[2019-05-12] MEDS: METOPROLOL PO SCH ×2 (09:32→22:29)
--- NOTE | 2019-05-12 09:54 | Progress Note ---
Assessment and Plan Acute toxic metabolic encephalopathy. Diabetic ketoacidosis. Severe sepsis with shock. Possible aspiration pneumonia. History of polysubstance abuse. Leukocytosis. Elevated serum transaminases, possible shock liver. Hyponatremia related to her severe hyperglycemia. Anemia that is macrocytic. History of seizure disorder. Severe metabolic acidosis. Acute kidney injury, possibly on chronic - resume modafinil - continues awaiting placement - continue to wean supplemental O2 to keep O2 sats > 90% (FiO2 remains at 28% now) - continue scopolamine patch for secretion control - prn CXR's and ABG's at this point - continue bronchodilators with pulmonary hygiene per RT - continue to follow mental status closely - follow clinically off AB's - continue enteral nutrition with glucerna and adjust rate per wage and hour investigator - VTE prophylaxis - Stress ulcer prophylaxis - continue accuchecks with glycemic control per SSI for target blood glucose 140-180 mg/dL - continue Keppra for seizures - continue mobility protocols / off loading for pressure ulcer prevention - continue Seizure precautions - fall precautions - neuro-checks per RN - continue other care per attending / other consultants CONDITION: IMPROVED PROGNOSIS: GUARDED CODE STATUS: DNR/DNI Subjective Date of service: 05/12/19 Principal diagnosis: Ac Hypoxemic Resp Failure; DKA; Severe sepsis with shock; ANGELICA Interval history: Patient is seen today for: Acute Hypoxemic Resp Failure; Ac toxic metabolic encephalopathy; DKA; Severe sepsis with shock; Possible aspiration pneumonia; History of polysubstance abuse; History of seizure disorder; Acute kidney injury, possibly on chronic Seen and examined at bedside; 24hour events reviewed; nursing and respiratory care staff consulted; no adverse overnight events reported to me; resting peacefully in bed; a little more alert; opening eyes spontaneously but not tracking well; no emesis or overt aspiration; no seizures; remains on t-piece. Objective Vital Signs - 12hr 05/11/19 05/11/19 05/12/19 23:23 23:27 04:44 Temperature Pulse Rate 125 H Respiratory Rate Blood Pressure 127/98 O2 Sat by Pulse Oximetry O2 Sat by Pulse 98 97 Oximetry [ Assessment] 05/12/19 05/12/19 05/12/19 04:45 05:00 09:05 Temperature 97.5 F L Pulse Rate 113 H Respiratory 16 Rate Blood Pressure 124/91 O2 Sat by Pulse 98 97 Oximetry O2 Sat by Pulse 96 Oximetry [ Assessment] 05/12/19 09:32 Temperature Pulse Rate 122 H Respiratory Rate Blood Pressure 123/86 O2 Sat by Pulse Oximetry O2 Sat by Pulse Oximetry [ Assessment] Constitutional: no acute distress, other (Patient awake. Not following commands.) Eyes: non-icteric ENT: oropharynx moist Neck: supple, no lymphadenopathy, no JVD, other (midline trach tube) Effort: normal Ascultation: Bilateral: clear Percussion: Bilateral: not dull Cardiovascular: regular rate and rhythm, other (S1,S2) Gastrointestinal: normoactive bowel sounds, soft, non-tender, non-distended, other (PEG tube) Integumentary: normal Extremities: no cyanosis, no edema, pink and warm, pulses normal, no ischemia or petechiae Neurologic: unable to assess (awake, alert, not obeying commands) Psychiatric: other (unable to assess) CBC and BMP: 05/09/19 04:30 05/09/19 04:30 ABG, PT/INR, D-dimer: ABG POC ABG pH 7.565 (7.35-7.45) H 04/19/19 04:35 ABG pH 7.396 pH Units (7.350-7.450) 04/03/19 05:35 POC ABG pCO2 36.2 (35-45) 04/19/19 04:35 ABG pCO2 32.2 mm Hg 04/03/19 05:35 POC ABG pO2 88 (80-105) 04/19/19 04:35 ABG pO2 97.7 mm Hg (80.0-90.0) H 04/03/19 05:35 POC ABG HCO3 32.8 (22-26 mml/L) 04/19/19 04:35 POC ABG Total CO2 34 (23-27mmol/L) 04/19/19 04:35 POC ABG O2 Sat 98 04/19/19 04:35 ABG O2 Saturation 97.6 % (95.0-99.0) 04/03/19 05:35 PT/INR, D-dimer PT 13.9 Sec. (12.2-14.9) 04/01/19 17:14 INR 1.10 (0.87-1.13) 04/01/19 17:14 D-Dimer 4526.86 ng/mlDDU (0-234) H 04/06/19 00:06 Abnormal lab findings: Abnormal Labs 03/29/19 03/29/19 03/29/19 19:11 19:20 19:20 WBC 26.7 H RBC 2.52 L Hgb 8.1 L Hct MCV 148 H MCH MCHC 22 L RDW 18.5 H Plt Count Lymph % (Auto) [place] % (Auto) Lymph # Seg Neutrophils % Seg Neuts % (Manual) 82.0 H Lymphocytes % (Manual) 7.0 L Nucleated RBC % Seg Neutrophils # Seg Neutrophils # Man 21.9 H Lymphocytes # (Manual) Monocytes # (Manual) 1.9 H PT 21.8 H INR 1.95 H APTT 74.5 H* D-Dimer POC ABG pH ABG pH POC ABG pCO2 POC ABG pO2 ABG pO2 ABG HCO3 ABG O2 Saturation ABG Base Excess ABG Hemoglobin VBG pH Oxyhemoglobin Sodium Potassium Chloride Carbon Dioxide BUN Creatinine Glucose POC Glucose > 500 H Hemoglobin A1c Lactic Acid Calcium Phosphorus Magnesium Iron TIBC Direct Bilirubin AST ALT Alkaline Phosphatase Total Creatine Kinase CK-MB (CK-2) C-Reactive Protein Total Protein Albumin Vitamin B12 Urine WBC (Auto) Salicylates Acetaminophen Miscellaneous Test Crossmatch 03/29/19 03/29/19 03/29/19 19:20 19:47 20:59 WBC RBC Hgb Hct MCV MCH MCHC RDW Plt Count Lymph % (Auto) [place] % (Auto) Lymph # Seg Neutrophils % Seg Neuts % (Manual) Lymphocytes % (Manual) Nucleated RBC % Seg Neutrophils # Seg Neutrophils # Man Lymphocytes # (Manual) Monocytes # (Manual) PT INR APTT D-Dimer POC ABG pH 6.892 L ABG pH POC ABG pCO2 POC ABG pO2 236 H ABG pO2 ABG HCO3 ABG O2 Saturation ABG Base Excess ABG Hemoglobin VBG pH 6.800 L* Oxyhemoglobin Sodium 118 L* Potassium 9.0 H* Chloride 64.5 L Carbon Dioxide 7 L* BUN 53 H Creatinine 2.1 H Glucose 2196 H* POC Glucose Hemoglobin A1c Lactic Acid Calcium 12.4 H* Phosphorus Magnesium Iron TIBC Direct Bilirubin AST 3900 H ALT 1034 H Alkaline Phosphatase 316 H Total Creatine Kinase CK-MB (CK-2) C-Reactive Protein Total Protein 5.1 L Albumin 2.8 L Vitamin B12 Urine WBC (Auto) Salicylates Acetaminophen Miscellaneous Test Crossmatch 03/29/19 03/29/19 03/29/19 22:45 22:45 22:45 WBC RBC Hgb Hct MCV MCH MCHC RDW Plt Count Lymph % (Auto) [place] % (Auto) Lymph # Seg Neutrophils % Seg Neuts % (Manual) Lymphocytes % (Manual) Nucleated RBC % Seg Neutrophils # Seg Neutrophils # Man Lymphocytes # (Manual) Monocytes # (Manual) PT INR APTT D-Dimer POC ABG pH ABG pH POC ABG pCO2 POC ABG pO2 ABG pO2 ABG HCO3 ABG O2 Saturation ABG Base Excess ABG Hemoglobin VBG pH Oxyhemoglobin Sodium 132 L D Potassium 7.0 H* Chloride 84.3 L Carbon Dioxide 3 L* BUN 48 H Creatinine 1.8 H Glucose 1779 H* POC Glucose Hemoglobin A1c Lactic Acid Calcium Phosphorus 21.70 H Magnesium 4.70 H Iron TIBC Direct Bilirubin AST ALT Alkaline Phosphatase Total Creatine Kinase 363 H CK-MB (CK-2) C-Reactive Protein Total Protein Albumin Vitamin B12 Urine WBC (Auto) Salicylates Acetaminophen Miscellaneous Test Crossmatch 03/29/19 03/29/19 03/30/19 Unknown Unknown 00:11 WBC RBC Hgb Hct MCV MCH MCHC RDW Plt Count Lymph % (Auto) [place] % (Auto) Lymph # Seg Neutrophils % Seg Neuts % (Manual) Lymphocytes % (Manual) Nucleated RBC % Seg Neutrophils # Seg Neutrophils # Man Lymphocytes # (Manual) Monocytes # (Manual) PT INR APTT D-Dimer POC ABG pH ABG pH POC ABG pCO2 POC ABG pO2 ABG pO2 ABG HCO3 ABG O2 Saturation ABG Base Excess ABG Hemoglobin VBG pH Oxyhemoglobin Sodium 122 L Potassium 7.9 H* 6.4 H* Chloride 75.3 L 89.7 L Carbon Dioxide 3 L* 12 L D BUN 52 H 46 H Creatinine 2.0 H 1.7 H Glucose 2043 H* 1591 H* POC Glucose Hemoglobin A1c Lactic Acid Calcium 7.8 L Phosphorus 19.30 H Magnesium 3.90 H Iron TIBC Direct Bilirubin AST ALT Alkaline Phosphatase Total Creatine Kinase CK-MB (CK-2) C-Reactive Protein Total Protein Albumin Vitamin B12 Urine WBC (Auto) Salicylates Acetaminophen Miscellaneous Test Crossmatch 03/30/19 03/30/1919 00:11 02:14 02:14 WBC RBC Hgb Hct MCV MCH MCHC RDW Plt Count Lymph % (Auto) [place] % (Auto) Lymph # Seg Neutrophils % Seg Neuts % (Manual) Lymphocytes % (Manual) Nucleated RBC % Seg Neutrophils # Seg Neutrophils # Man Lymphocytes # (Manual) Monocytes # (Manual) PT INR APTT D-Dimer POC ABG pH ABG pH POC ABG pCO2 POC ABG pO2 ABG pO2 ABG HCO3 ABG O2 Saturation ABG Base Excess ABG Hemoglobin VBG pH Oxyhemoglobin Sodium Potassium Chloride Carbon Dioxide 9 L* BUN 45 H Creatinine 1.7 H Glucose 1155 H* POC Glucose Hemoglobin A1c Lactic Acid Calcium 7.9 L Phosphorus 10.90 H D 5.30 H D Magnesium 3.10 H 2.90 H Iron TIBC Direct Bilirubin AST ALT Alkaline Phosphatase Total Creatine Kinase CK-MB (CK-2) C-Reactive Protein Total Protein Albumin Vitamin B12 Urine WBC (Auto) Salicylates Acetaminophen Miscellaneous Test Crossmatch 03/30/19 03/30/19 03/30/19 03:15 03:30 04:23 WBC 18.0 H RBC 2.31 L Hgb 7.3 L Hct 23.8 L D MCV 103 H MCH MCHC RDW 17.1 H Plt Count Lymph % (Auto) [place] % (Auto) Lymph # Seg Neutrophils % Seg Neuts % (Manual) 79.0 H Lymphocytes % (Manual) Nucleated RBC % Seg Neutrophils # Seg Neutrophils # Man 14.2 H Lymphocytes # (Manual) Monocytes # (Manual) PT INR APTT D-Dimer POC ABG pH 7.251 L ABG pH POC ABG pCO2 POC ABG pO2 156 H ABG pO2 ABG HCO3 ABG O2 Saturation ABG Base Excess ABG Hemoglobin VBG pH Oxyhemoglobin Sodium Potassium Chloride Carbon Dioxide BUN Creatinine Glucose POC Glucose Hemoglobin A1c Lactic Acid Calcium Phosphorus Magnesium Iron TIBC Direct Bilirubin AST ALT Alkaline Phosphatase Total Creatine Kinase CK-MB (CK-2) C-Reactive Protein Total Protein Albumin Vitamin B12 Urine WBC (Auto) Salicylates Acetaminophen Miscellaneous Test Crossmatch See Detail 03/30/19 03/30/19 03/30/19 05:26 05:26 10:38 WBC RBC Hgb Hct MCV MCH MCHC RDW Plt Count Lymph % (Auto) [place] % (Auto) Lymph # Seg Neutrophils % Seg Neuts % (Manual) Lymphocytes % (Manual) Nucleated RBC % Seg Neutrophils # Seg Neutrophils # Man Lymphocytes # (Manual) Monocytes # (Manual) PT INR APTT D-Dimer POC ABG pH ABG pH POC ABG pCO2 POC ABG pO2 ABG pO2 ABG HCO3 ABG O2 Saturation ABG Base Excess ABG Hemoglobin VBG pH Oxyhemoglobin Sodium 158 H D Potassium 3.5 L Chloride 109.3 H Carbon Dioxide 19 L D BUN 40 H Creatinine 1.5 H Glucose 760 H* POC Glucose 380 H Hemoglobin A1c Lactic Acid Calcium 7.3 L Phosphorus Magnesium 2.60 H Iron TIBC Direct Bilirubin AST 56595 H ALT 2156 H Alkaline Phosphatase 271 H Total Creatine Kinase 2465 H CK-MB (CK-2) 52.7 H C-Reactive Protein Total Protein 4.5 L Albumin 2.4 L Vitamin B12 Urine WBC (Auto) Salicylates Acetaminophen Miscellaneous Test Crossmatch 03/30/19 03/30/19 03/30/19 11:08 12:25 12:57 WBC RBC Hgb Hct MCV MCH MCHC RDW Plt Count Lymph % (Auto) [place] % (Auto) Lymph # Seg Neutrophils % Seg Neuts % (Manual) Lymphocytes % (Manual) Nucleated RBC % Seg Neutrophils # Seg Neutrophils # Man Lymphocytes # (Manual) Monocytes # (Manual) PT INR APTT D-Dimer POC ABG pH ABG pH POC ABG pCO2 POC ABG pO2 ABG pO2 ABG HCO3 ABG O2 Saturation ABG Base Excess ABG Hemoglobin VBG pH Oxyhemoglobin Sodium 156 H Potassium 3.2 L Chloride 116.4 H Carbon Dioxide 21 L BUN 37 H Creatinine Glucose 162 H POC Glucose 263 H 196 H Hemoglobin A1c Lactic Acid Calcium 7.2 L Phosphorus Magnesium Iron TIBC Direct Bilirubin AST ALT Alkaline Phosphatase Total Creatine Kinase CK-MB (CK-2) C-Reactive Protein Total Protein Albumin Vitamin B12 Urine WBC (Auto) Salicylates Acetaminophen Miscellaneous Test Crossmatch 03/30/19 03/30/19 03/30/19 12:57 12:57 12:57 WBC RBC Hgb Hct MCV MCH MCHC RDW Plt Count Lymph % (Auto) [place] % (Auto) Lymph # Seg Neutrophils % Seg Neuts % (Manual) Lymphocytes % (Manual) Nucleated RBC % Seg Neutrophils # Seg Neutrophils # Man Lymphocytes # (Manual) Monocytes # (Manual) PT 21.0 H INR 1.86 H APTT D-Dimer POC ABG pH ABG pH POC ABG pCO2 POC ABG pO2 ABG pO2 ABG HCO3 ABG O2 Saturation ABG Base Excess ABG Hemoglobin VBG pH Oxyhemoglobin Sodium Potassium Chloride Carbon Dioxide BUN Creatinine Glucose POC Glucose Hemoglobin A1c Lactic Acid 9.00 H* Calcium Phosphorus Magnesium Iron TIBC Direct Bilirubin AST ALT Alkaline Phosphatase Total Creatine Kinase CK-MB (CK-2) C-Reactive Protein 2.40 H Total Protein Albumin Vitamin B12 Urine WBC (Auto) Salicylates Acetaminophen Miscellaneous Test Crossmatch 03/30/19 03/30/19 03/30/19 13:23 14:00 14:47 WBC RBC Hgb Hct MCV MCH MCHC RDW Plt Count Lymph % (Auto) [place] % (Auto) Lymph # Seg Neutrophils % Seg Neuts % (Manual) Lymphocytes % (Manual) Nucleated RBC % Seg Neutrophils # Seg Neutrophils # Man Lymphocytes # (Manual) Monocytes # (Manual) PT INR APTT D-Dimer POC ABG pH ABG pH POC ABG pCO2 POC ABG pO2 ABG pO2 ABG HCO3 ABG O2 Saturation ABG Base Excess ABG Hemoglobin VBG pH Oxyhemoglobin Sodium Potassium Chloride Carbon Dioxide BUN Creatinine Glucose POC Glucose 176 H 245 H Hemoglobin A1c Lactic Acid Calcium Phosphorus Magnesium Iron TIBC Direct Bilirubin AST ALT Alkaline Phosphatase Total Creatine Kinase CK-MB (CK-2) C-Reactive Protein Total Protein Albumin Vitamin B12 Urine WBC (Auto) Salicylates Acetaminophen Miscellaneous Test Flexitest 1 H Crossmatch 03/30/19 03/30/19 03/30/19 16:11 17:11 17:46 WBC RBC Hgb Hct MCV MCH MCHC RDW Plt Count Lymph % (Auto) [place] % (Auto) Lymph # Seg Neutrophils % Seg Neuts % (Manual) Lymphocytes % (Manual) Nucleated RBC % Seg Neutrophils # Seg Neutrophils # Man Lymphocytes # (Manual) Monocytes # (Manual) PT INR APTT D-Dimer POC ABG pH ABG pH POC ABG pCO2 POC ABG pO2 ABG pO2 ABG HCO3 ABG O2 Saturation ABG Base Excess ABG Hemoglobin VBG pH Oxyhemoglobin Sodium Potassium Chloride Carbon Dioxide BUN Creatinine Glucose POC Glucose 181 H 167 H 125 H Hemoglobin A1c Lactic Acid Calcium Phosphorus Magnesium Iron TIBC Direct Bilirubin AST ALT Alkaline Phosphatase Total Creatine Kinase CK-MB (CK-2) C-Reactive Protein Total Protein Albumin Vitamin B12 Urine WBC (Auto) Salicylates Acetaminophen Miscellaneous Test Crossmatch 03/30/19 03/30/19 03/30/19 18:59 21:31 22:19 WBC RBC Hgb Hct MCV MCH MCHC RDW Plt Count Lymph % (Auto) [place] % (Auto) Lymph # Seg Neutrophils % Seg Neuts % (Manual) Lymphocytes % (Manual) Nucleated RBC % Seg Neutrophils # Seg Neutrophils # Man Lymphocytes # (Manual) Monocytes # (Manual) PT INR APTT D-Dimer POC ABG pH ABG pH POC ABG pCO2 POC ABG pO2 ABG pO2 ABG HCO3 ABG O2 Saturation ABG Base Excess ABG Hemoglobin VBG pH Oxyhemoglobin Sodium Potassium Chloride Carbon Dioxide BUN Creatinine Glucose POC Glucose 140 H 166 H 115 H Hemoglobin A1c Lactic Acid Calcium Phosphorus Magnesium Iron TIBC Direct Bilirubin AST ALT Alkaline Phosphatase Total Creatine Kinase CK-MB (CK-2) C-Reactive Protein Total Protein Albumin Vitamin B12 Urine WBC (Auto) Salicylates Acetaminophen Miscellaneous Test Crossmatch 03/30/19 03/30/19 03/30/19 23:13 Unknown Unknown WBC RBC Hgb Hct MCV MCH MCHC RDW Plt Count Lymph % (Auto) [place] % (Auto) Lymph # Seg Neutrophils % Seg Neuts % (Manual) Lymphocytes % (Manual) Nucleated RBC % Seg Neutrophils # Seg Neutrophils # Man Lymphocytes # (Manual) Monocytes # (Manual) PT INR APTT D-Dimer POC ABG pH ABG pH POC ABG pCO2 POC ABG pO2 ABG pO2 47.8 L ABG HCO3 18.8 L ABG O2 Saturation 83.8 L ABG Base Excess -5.4 L ABG Hemoglobin 6.8 L VBG pH Oxyhemoglobin 81.8 L Sodium 157 H Potassium 3.3 L Chloride 117.9 H Carbon Dioxide 20 L BUN 36 H Creatinine Glucose 150 H POC Glucose 112 H Hemoglobin A1c Lactic Acid Calcium 7.2 L Phosphorus Magnesium Iron TIBC Direct Bilirubin AST ALT Alkaline Phosphatase Total Creatine Kinase CK-MB (CK-2) C-Reactive Protein Total Protein Albumin Vitamin B12 Urine WBC (Auto) Salicylates Acetaminophen Miscellaneous Test Crossmatch 03/30/19 03/30/19 03/31/19 Unknown Unknown 00:03 WBC RBC Hgb Hct MCV MCH MCHC RDW Plt Count Lymph % (Auto) [place] % (Auto) Lymph # Seg Neutrophils % Seg Neuts % (Manual) Lymphocytes % (Manual) Nucleated RBC % Seg Neutrophils # Seg Neutrophils # Man Lymphocytes # (Manual) Monocytes # (Manual) PT INR APTT D-Dimer POC ABG pH ABG pH POC ABG pCO2 POC ABG pO2 ABG pO2 ABG HCO3 ABG O2 Saturation ABG Base Excess ABG Hemoglobin VBG pH Oxyhemoglobin Sodium Potassium Chloride Carbon Dioxide BUN Creatinine Glucose POC Glucose 188 H Hemoglobin A1c Lactic Acid Calcium Phosphorus Magnesium Iron TIBC Direct Bilirubin AST ALT Alkaline Phosphatase Total Creatine Kinase CK-MB (CK-2) C-Reactive Protein Total Protein Albumin Vitamin B12 Urine WBC (Auto) Salicylates 0.8 L Acetaminophen < 5.0 L Miscellaneous Test Crossmatch 03/31/19 03/31/19 03/31/19 01:18 03:07 03:50 WBC RBC Hgb Hct MCV MCH MCHC RDW Plt Count Lymph % (Auto) [place] % (Auto) Lymph # Seg Neutrophils % Seg Neuts % (Manual) Lymphocytes % (Manual) Nucleated RBC % Seg Neutrophils # Seg Neutrophils # Man Lymphocytes # (Manual) Monocytes # (Manual) PT INR APTT D-Dimer POC ABG pH ABG pH 7.525 H POC ABG pCO2 POC ABG pO2 ABG pO2 178.0 H ABG HCO3 19.5 L ABG O2 Saturation 99.2 H ABG Base Excess -3.1 L ABG Hemoglobin 5.8 L VBG pH Oxyhemoglobin Sodium Potassium Chloride Carbon Dioxide BUN Creatinine Glucose POC Glucose 114 H 107 H Hemoglobin A1c Lactic Acid Calcium Phosphorus Magnesium Iron TIBC Direct Bilirubin AST ALT Alkaline Phosphatase Total Creatine Kinase CK-MB (CK-2) C-Reactive Protein Total Protein Albumin Vitamin B12 Urine WBC (Auto) Salicylates Acetaminophen Miscellaneous Test Crossmatch 03/31/19 03/31/19 03/31/19 03:51 03:51 04:05 WBC RBC 1.89 L Hgb 6.1 L Hct 18.2 L* MCV MCH MCHC RDW 17.7 H Plt Count 89 L Lymph % (Auto) [place] % (Auto) Lymph # Seg Neutrophils % Seg Neuts % (Manual) 86.0 H Lymphocytes % (Manual) 10.0 L Nucleated RBC % 1.0 H Seg Neutrophils # Seg Neutrophils # Man Lymphocytes # (Manual) 0.7 L Monocytes # (Manual) PT INR APTT D-Dimer POC ABG pH ABG pH POC ABG pCO2 POC ABG pO2 ABG pO2 ABG HCO3 ABG O2 Saturation ABG Base Excess ABG Hemoglobin VBG pH Oxyhemoglobin Sodium 151 H Potassium 3.2 L Chloride 119.4 H Carbon Dioxide 17 L BUN 35 H Creatinine Glucose 139 H POC Glucose 153 H Hemoglobin A1c Lactic Acid Calcium 7.1 L Phosphorus Magnesium Iron TIBC Direct Bilirubin AST ALT Alkaline Phosphatase Total Creatine Kinase CK-MB (CK-2) C-Reactive Protein Total Protein Albumin Vitamin B12 Urine WBC (Auto) Salicylates Acetaminophen Miscellaneous Test Crossmatch 03/31/19 03/31/19 03/31/19 05:05 05:35 06:23 WBC RBC Hgb Hct MCV MCH MCHC RDW Plt Count Lymph % (Auto) [place] % (Auto) Lymph # Seg Neutrophils % Seg Neuts % (Manual) Lymphocytes % (Manual) Nucleated RBC % Seg Neutrophils # Seg Neutrophils # Man Lymphocytes # (Manual) Monocytes # (Manual) PT INR APTT D-Dimer POC ABG pH ABG pH POC ABG pCO2 POC ABG pO2 ABG pO2 ABG HCO3 ABG O2 Saturation ABG Base Excess ABG Hemoglobin VBG pH Oxyhemoglobin Sodium Potassium Chloride Carbon Dioxide BUN Creatinine Glucose POC Glucose 176 H 133 H Hemoglobin A1c Lactic Acid 3.20 H* Calcium Phosphorus Magnesium Iron TIBC Direct Bilirubin AST ALT Alkaline Phosphatase Total Creatine Kinase CK-MB (CK-2) C-Reactive Protein Total Protein Albumin Vitamin B12 Urine WBC (Auto) Salicylates Acetaminophen Miscellaneous Test Crossmatch 03/31/19 03/31/19 03/31/19 07:50 07:51 08:20 WBC RBC Hgb Hct MCV MCH MCHC RDW Plt Count Lymph % (Auto) [place] % (Auto) Lymph # Seg Neutrophils % Seg Neuts % (Manual) Lymphocytes % (Manual) Nucleated RBC % Seg Neutrophils # Seg Neutrophils # Man Lymphocytes # (Manual) Monocytes # (Manual) PT INR APTT D-Dimer POC ABG pH ABG pH POC ABG pCO2 POC ABG pO2 ABG pO2 ABG HCO3 ABG O2 Saturation ABG Base Excess ABG Hemoglobin VBG pH Oxyhemoglobin Sodium Potassium Chloride Carbon Dioxide BUN Creatinine Glucose POC Glucose 135 H Hemoglobin A1c Lactic Acid 3.30 H* Calcium Phosphorus Magnesium Iron 26 L TIBC 193 L Direct Bilirubin AST ALT Alkaline Phosphatase Total Creatine Kinase CK-MB (CK-2) C-Reactive Protein Total Protein Albumin Vitamin B12 Urine WBC (Auto) Salicylates Acetaminophen Miscellaneous Test Crossmatch 03/31/19 03/31/19 03/31/19 08:20 08:20 09:06 WBC RBC Hgb Hct MCV MCH MCHC RDW Plt Count Lymph % (Auto) [place] % (Auto) Lymph # Seg Neutrophils % Seg Neuts % (Manual) Lymphocytes % (Manual) Nucleated RBC % Seg Neutrophils # Seg Neutrophils # Man Lymphocytes # (Manual) Monocytes # (Manual) PT INR APTT D-Dimer POC ABG pH ABG pH POC ABG pCO2 POC ABG pO2 ABG pO2 ABG HCO3 ABG O2 Saturation ABG Base Excess ABG Hemoglobin VBG pH Oxyhemoglobin Sodium 153 H Potassium 3.0 L Chloride 118.9 H Carbon Dioxide 18 L BUN 37 H Creatinine Glucose 132 H POC Glucose 145 H Hemoglobin A1c Lactic Acid Calcium 7.1 L Phosphorus Magnesium Iron TIBC Direct Bilirubin AST ALT Alkaline Phosphatase Total Creatine Kinase CK-MB (CK-2) C-Reactive Protein Total Protein Albumin Vitamin B12 > 2000 H Urine WBC (Auto) Salicylates Acetaminophen Miscellaneous Test Crossmatch 03/31/19 03/31/19 03/31/19 10:47 11:49 13:04 WBC RBC Hgb Hct MCV MCH MCHC RDW Plt Count Lymph % (Auto) [place] % (Auto) Lymph # Seg Neutrophils % Seg Neuts % (Manual) Lymphocytes % (Manual) Nucleated RBC % Seg Neutrophils # Seg Neutrophils # Man Lymphocytes # (Manual) Monocytes # (Manual) PT INR APTT D-Dimer POC ABG pH ABG pH POC ABG pCO2 POC ABG pO2 ABG pO2 ABG HCO3 ABG O2 Saturation ABG Base Excess ABG Hemoglobin VBG pH Oxyhemoglobin Sodium Potassium Chloride Carbon Dioxide BUN Creatinine Glucose POC Glucose 153 H 174 H 214 H Hemoglobin A1c Lactic Acid Calcium Phosphorus Magnesium Iron TIBC Direct Bilirubin AST ALT Alkaline Phosphatase Total Creatine Kinase CK-MB (CK-2) C-Reactive Protein Total Protein Albumin Vitamin B12 Urine WBC (Auto) Salicylates Acetaminophen Miscellaneous Test Crossmatch 03/31/19 03/31/19 03/31/19 13:42 15:08 16:08 WBC RBC Hgb Hct MCV MCH MCHC RDW Plt Count Lymph % (Auto) [place] % (Auto) Lymph # Seg Neutrophils % Seg Neuts % (Manual) Lymphocytes % (Manual) Nucleated RBC % Seg Neutrophils # Seg Neutrophils # Man Lymphocytes # (Manual) Monocytes # (Manual) PT INR APTT D-Dimer POC ABG pH ABG pH POC ABG pCO2 POC ABG pO2 ABG pO2 ABG HCO3 ABG O2 Saturation ABG Base Excess ABG Hemoglobin VBG pH Oxyhemoglobin Sodium Potassium Chloride Carbon Dioxide BUN Creatinine Glucose POC Glucose 186 H 136 H 150 H Hemoglobin A1c Lactic Acid Calcium Phosphorus Magnesium Iron TIBC Direct Bilirubin AST ALT Alkaline Phosphatase Total Creatine Kinase CK-MB (CK-2) C-Reactive Protein Total Protein Albumin Vitamin B12 Urine WBC (Auto) Salicylates Acetaminophen Miscellaneous Test Crossmatch 03/31/19 03/31/19 03/31/19 17:11 17:30 17:30 WBC RBC Hgb 7.7 L Hct 23.0 L MCV MCH MCHC RDW Plt Count Lymph % (Auto) [place] % (Auto) Lymph # Seg Neutrophils % Seg Neuts % (Manual) Lymphocytes % (Manual) Nucleated RBC % Seg Neutrophils # Seg Neutrophils # Man Lymphocytes # (Manual) Monocytes # (Manual) PT INR APTT D-Dimer POC ABG pH ABG pH POC ABG pCO2 POC ABG pO2 ABG pO2 ABG HCO3 ABG O2 Saturation ABG Base Excess ABG Hemoglobin VBG pH Oxyhemoglobin Sodium 153 H Potassium 3.5 L Chloride 119.3 H Carbon Dioxide 20 L BUN 34 H Creatinine Glucose 162 H POC Glucose 140 H Hemoglobin A1c Lactic Acid Calcium 7.6 L Phosphorus Magnesium Iron TIBC Direct Bilirubin AST ALT Alkaline Phosphatase Total Creatine Kinase CK-MB (CK-2) C-Reactive Protein Total Protein Albumin Vitamin B12 Urine WBC (Auto) Salicylates Acetaminophen Miscellaneous Test Crossmatch 03/31/19 03/31/19 03/31/19 17:59 18:58 20:28 WBC RBC Hgb Hct MCV MCH MCHC RDW Plt Count Lymph % (Auto) [place] % (Auto) Lymph # Seg Neutrophils % Seg Neuts % (Manual) Lymphocytes % (Manual) Nucleated RBC % Seg Neutrophils # Seg Neutrophils # Man Lymphocytes # (Manual) Monocytes # (Manual) PT INR APTT D-Dimer POC ABG pH ABG pH POC ABG pCO2 POC ABG pO2 ABG pO2 ABG HCO3 ABG O2 Saturation ABG Base Excess ABG Hemoglobin VBG pH Oxyhemoglobin Sodium Potassium Chloride Carbon Dioxide BUN Creatinine Glucose POC Glucose 156 H 152 H 138 H Hemoglobin A1c Lactic Acid Calcium Phosphorus Magnesium Iron TIBC Direct Bilirubin AST ALT Alkaline Phosphatase Total Creatine Kinase CK-MB (CK-2) C-Reactive Protein Total Protein Albumin Vitamin B12 Urine WBC (Auto) Salicylates Acetaminophen Miscellaneous Test Crossmatch 03/31/19 03/31/19 03/31/19 21:09 22:15 23:10 WBC RBC Hgb Hct MCV MCH MCHC RDW Plt Count Lymph % (Auto) [place] % (Auto) Lymph # Seg Neutrophils % Seg Neuts % (Manual) Lymphocytes % (Manual) Nucleated RBC % Seg Neutrophils # Seg Neutrophils # Man Lymphocytes # (Manual) Monocytes # (Manual) PT INR APTT D-Dimer POC ABG pH ABG pH POC ABG pCO2 POC ABG pO2 ABG pO2 ABG HCO3 ABG O2 Saturation ABG Base Excess ABG Hemoglobin VBG pH Oxyhemoglobin Sodium Potassium Chloride Carbon Dioxide BUN Creatinine Glucose POC Glucose 136 H 137 H 148 H Hemoglobin A1c Lactic Acid Calcium Phosphorus Magnesium Iron TIBC Direct Bilirubin AST ALT Alkaline Phosphatase Total Creatine Kinase CK-MB (CK-2) C-Reactive Protein Total Protein Albumin Vitamin B12 Urine WBC (Auto) Salicylates Acetaminophen Miscellaneous Test Crossmatch 04/01/19 04/01/19 04/01/19 00:05 01:17 02:11 WBC RBC Hgb Hct MCV MCH MCHC RDW Plt Count Lymph % (Auto) [place] % (Auto) Lymph # Seg Neutrophils % Seg Neuts % (Manual) Lymphocytes % (Manual) Nucleated RBC % Seg Neutrophils # Seg Neutrophils # Man Lymphocytes # (Manual) Monocytes # (Manual) PT INR APTT D-Dimer POC ABG pH ABG pH POC ABG pCO2 POC ABG pO2 ABG pO2 ABG HCO3 ABG O2 Saturation ABG Base Excess ABG Hemoglobin VBG pH Oxyhemoglobin Sodium Potassium Chloride Carbon Dioxide BUN Creatinine Glucose POC Glucose 143 H 151 H 155 H Hemoglobin A1c Lactic Acid Calcium Phosphorus Magnesium Iron TIBC Direct Bilirubin AST ALT Alkaline Phosphatase Total Creatine Kinase CK-MB (CK-2) C-Reactive Protein Total Protein Albumin Vitamin B12 Urine WBC (Auto) Salicylates Acetaminophen Miscellaneous Test Crossmatch 04/01/19 04/01/19 04/01/19 03:12 04:03 04:16 WBC RBC Hgb Hct MCV MCH MCHC RDW Plt Count Lymph % (Auto) [place] % (Auto) Lymph # Seg Neutrophils % Seg Neuts % (Manual) Lymphocytes % (Manual) Nucleated RBC % Seg Neutrophils # Seg Neutrophils # Man Lymphocytes # (Manual) Monocytes # (Manual) PT INR APTT D-Dimer POC ABG pH ABG pH POC ABG pCO2 POC ABG pO2 ABG pO2 ABG HCO3 ABG O2 Saturation ABG Base Excess ABG Hemoglobin VBG pH Oxyhemoglobin Sodium Potassium Chloride Carbon Dioxide BUN Creatinine Glucose POC Glucose 140 H 143 H 142 H Hemoglobin A1c Lactic Acid Calcium Phosphorus Magnesium Iron TIBC Direct Bilirubin AST ALT Alkaline Phosphatase Total Creatine Kinase CK-MB (CK-2) C-Reactive Protein Total Protein Albumin Vitamin B12 Urine WBC (Auto) Salicylates Acetaminophen Miscellaneous Test Crossmatch 04/01/19 04/01/19 04/01/19 05:01 05:01 05:08 WBC RBC 2.05 L Hgb 6.8 L Hct 20.5 L MCV 100 H MCH 33 H MCHC RDW 17.7 H Plt Count 53 L Lymph % (Auto) [place] % (Auto) Lymph # Seg Neutrophils % Seg Neuts % (Manual) 71.0 H Lymphocytes % (Manual) Nucleated RBC % Seg Neutrophils # Seg Neutrophils # Man Lymphocytes # (Manual) Monocytes # (Manual) PT INR APTT D-Dimer POC ABG pH ABG pH POC ABG pCO2 POC ABG pO2 ABG pO2 ABG HCO3 ABG O2 Saturation ABG Base Excess ABG Hemoglobin VBG pH Oxyhemoglobin Sodium Potassium Chloride Carbon Dioxide BUN Creatinine Glucose POC Glucose 119 H Hemoglobin A1c Lactic Acid Calcium Phosphorus Magnesium Iron TIBC Direct Bilirubin 0.3 H AST 4601 H ALT 1542 H Alkaline Phosphatase 185 H Total Creatine Kinase CK-MB (CK-2) C-Reactive Protein Total Protein 3.8 L Albumin 1.6 L Vitamin B12 Urine WBC (Auto) Salicylates Acetaminophen Miscellaneous Test Crossmatch 04/01/19 04/01/19 04/01/19 05:23 06:37 08:15 WBC RBC Hgb Hct MCV MCH MCHC RDW Plt Count Lymph % (Auto) [place] % (Auto) Lymph # Seg Neutrophils % Seg Neuts % (Manual) Lymphocytes % (Manual) Nucleated RBC % Seg Neutrophils # Seg Neutrophils # Man Lymphocytes # (Manual) Monocytes # (Manual) PT INR APTT D-Dimer POC ABG pH ABG pH POC ABG pCO2 POC ABG pO2 ABG pO2 ABG HCO3 ABG O2 Saturation ABG Base Excess ABG Hemoglobin VBG pH Oxyhemoglobin Sodium Potassium Chloride Carbon Dioxide BUN Creatinine Glucose POC Glucose 115 H 124 H 138 H Hemoglobin A1c Lactic Acid Calcium Phosphorus Magnesium Iron TIBC Direct Bilirubin AST ALT Alkaline Phosphatase Total Creatine Kinase CK-MB (CK-2) C-Reactive Protein Total Protein Albumin Vitamin B12 Urine WBC (Auto) Salicylates Acetaminophen Miscellaneous Test Crossmatch 04/01/19 04/01/19 04/01/19 09:50 10:10 10:31 WBC RBC Hgb 6.5 L Hct 19.2 L* MCV MCH MCHC RDW Plt Count Lymph % (Auto) [place] % (Auto) Lymph # Seg Neutrophils % Seg Neuts % (Manual) Lymphocytes % (Manual) Nucleated RBC % Seg Neutrophils # Seg Neutrophils # Man Lymphocytes # (Manual) Monocytes # (Manual) PT INR APTT D-Dimer POC ABG pH ABG pH POC ABG pCO2 POC ABG pO2 ABG pO2 ABG HCO3 ABG O2 Saturation ABG Base Excess ABG Hemoglobin VBG pH Oxyhemoglobin Sodium 149 H Potassium 3.5 L Chloride 119.9 H Carbon Dioxide 21 L BUN 33 H Creatinine 0.5 L Glucose 142 H POC Glucose 185 H Hemoglobin A1c Lactic Acid Calcium 7.3 L Phosphorus Magnesium Iron TIBC Direct Bilirubin AST 3686 H ALT 1440 H Alkaline Phosphatase 185 H Total Creatine Kinase CK-MB (CK-2) C-Reactive Protein Total Protein 3.7 L Albumin 1.8 L Vitamin B12 Urine WBC (Auto) Salicylates Acetaminophen Miscellaneous Test Crossmatch 04/01/19 04/01/19 04/01/19 11:35 13:05 14:35 WBC RBC Hgb Hct MCV MCH MCHC RDW Plt Count Lymph % (Auto) [place] % (Auto) Lymph # Seg Neutrophils % Seg Neuts % (Manual) Lymphocytes % (Manual) Nucleated RBC % Seg Neutrophils # Seg Neutrophils # Man Lymphocytes # (Manual) Monocytes # (Manual) PT INR APTT D-Dimer POC ABG pH ABG pH POC ABG pCO2 POC ABG pO2 ABG pO2 ABG HCO3 ABG O2 Saturation ABG Base Excess ABG Hemoglobin VBG pH Oxyhemoglobin Sodium Potassium Chloride Carbon Dioxide BUN Creatinine Glucose POC Glucose 201 H 169 H 134 H Hemoglobin A1c Lactic Acid Calcium Phosphorus Magnesium Iron TIBC Direct Bilirubin AST ALT Alkaline Phosphatase Total Creatine Kinase CK-MB (CK-2) C-Reactive Protein Total Protein Albumin Vitamin B12 Urine WBC (Auto) Salicylates Acetaminophen Miscellaneous Test Crossmatch 04/01/19 04/01/19 04/01/19 17:13 17:14 18:30 WBC RBC Hgb Hct MCV MCH MCHC RDW Plt Count Lymph % (Auto) [place] % (Auto) Lymph # Seg Neutrophils % Seg Neuts % (Manual) Lymphocytes % (Manual) Nucleated RBC % Seg Neutrophils # Seg Neutrophils # Man Lymphocytes # (Manual) Monocytes # (Manual) PT INR APTT D-Dimer 5203.68 H POC ABG pH ABG pH POC ABG pCO2 POC ABG pO2 ABG pO2 ABG HCO3 ABG O2 Saturation ABG Base Excess ABG Hemoglobin VBG pH Oxyhemoglobin Sodium Potassium Chloride Carbon Dioxide BUN Creatinine Glucose POC Glucose 69 L 128 H Hemoglobin A1c Lactic Acid Calcium Phosphorus Magnesium Iron TIBC Direct Bilirubin AST ALT Alkaline Phosphatase Total Creatine Kinase CK-MB (CK-2) C-Reactive Protein Total Protein Albumin Vitamin B12 Urine WBC (Auto) Salicylates Acetaminophen Miscellaneous Test Crossmatch 04/01/19 04/01/19 04/02/19 22:50 Unknown 03:40 WBC RBC Hgb Hct MCV MCH MCHC RDW Plt Count Lymph % (Auto) [place] % (Auto) Lymph # Seg Neutrophils % Seg Neuts % (Manual) Lymphocytes % (Manual) Nucleated RBC % Seg Neutrophils # Seg Neutrophils # Man Lymphocytes # (Manual) Monocytes # (Manual) PT INR APTT D-Dimer POC ABG pH ABG pH POC ABG pCO2 POC ABG pO2 ABG pO2 78.3 L 142.8 H ABG HCO3 15.5 L ABG O2 Saturation ABG Base Excess -3.5 L -8.2 L ABG Hemoglobin 6.8 L 8.2 L VBG pH Oxyhemoglobin 94.3 L Sodium Potassium Chloride Carbon Dioxide BUN Creatinine Glucose POC Glucose 342 H Hemoglobin A1c Lactic Acid Calcium Phosphorus Magnesium Iron TIBC Direct Bilirubin AST ALT Alkaline Phosphatase Total Creatine Kinase CK-MB (CK-2) C-Reactive Protein Total Protein Albumin Vitamin B12 Urine WBC (Auto) Salicylates Acetaminophen Miscellaneous Test Crossmatch 04/02/19 04/02/19 04/02/19 03:49 06:50 07:48 WBC RBC 2.65 L Hgb 8.6 L Hct 25.1 L MCV MCH MCHC RDW 17.6 H Plt Count 48 L Lymph % (Auto) [place] % (Auto) Lymph # Seg Neutrophils % Seg Neuts % (Manual) Lymphocytes % (Manual) Nucleated RBC % Seg Neutrophils # Seg Neutrophils # Man Lymphocytes # (Manual) Monocytes # (Manual) PT INR APTT D-Dimer POC ABG pH ABG pH POC ABG pCO2 POC ABG pO2 ABG pO2 ABG HCO3 ABG O2 Saturation ABG Base Excess ABG Hemoglobin VBG pH Oxyhemoglobin Sodium Potassium Chloride Carbon Dioxide BUN Creatinine Glucose POC Glucose 247 H 200 H Hemoglobin A1c Lactic Acid Calcium Phosphorus Magnesium Iron TIBC Direct Bilirubin AST ALT Alkaline Phosphatase Total Creatine Kinase CK-MB (CK-2) C-Reactive Protein Total Protein Albumin Vitamin B12 Urine WBC (Auto) Salicylates Acetaminophen Miscellaneous Test Crossmatch 04/02/19 04/02/19 04/02/19 07:48 11:18 14:07 WBC RBC Hgb Hct MCV MCH MCHC RDW Plt Count Lymph % (Auto) [place] % (Auto) Lymph # Seg Neutrophils % Seg Neuts % (Manual) Lymphocytes % (Manual) Nucleated RBC % Seg Neutrophils # Seg Neutrophils # Man Lymphocytes # (Manual) Monocytes # (Manual) PT INR APTT D-Dimer POC ABG pH ABG pH POC ABG pCO2 POC ABG pO2 ABG pO2 ABG HCO3 ABG O2 Saturation ABG Base Excess ABG Hemoglobin VBG pH Oxyhemoglobin Sodium Potassium 3.5 L Chloride 115.7 H Carbon Dioxide 19 L BUN 29 H Creatinine 0.5 L Glucose 159 H POC Glucose 154 H 149 H Hemoglobin A1c Lactic Acid Calcium 7.5 L Phosphorus Magnesium Iron TIBC Direct Bilirubin AST 1418 H ALT 1134 H Alkaline Phosphatase 242 H Total Creatine Kinase CK-MB (CK-2) C-Reactive Protein Total Protein 4.2 L Albumin 2.1 L Vitamin B12 Urine WBC (Auto) Salicylates Acetaminophen Miscellaneous Test Crossmatch 04/02/19 04/02/19 04/02/19 18:09 19:46 23:05 WBC RBC Hgb Hct MCV MCH MCHC RDW Plt Count Lymph % (Auto) [place] % (Auto) Lymph # Seg Neutrophils % Seg Neuts % (Manual) Lymphocytes % (Manual) Nucleated RBC % Seg Neutrophils # Seg Neutrophils # Man Lymphocytes # (Manual) Monocytes # (Manual) PT INR APTT D-Dimer POC ABG pH ABG pH POC ABG pCO2 POC ABG pO2 ABG pO2 ABG HCO3 ABG O2 Saturation ABG Base Excess ABG Hemoglobin VBG pH Oxyhemoglobin Sodium Potassium Chloride Carbon Dioxide BUN Creatinine Glucose POC Glucose 188 H 209 H 247 H Hemoglobin A1c Lactic Acid Calcium Phosphorus Magnesium Iron TIBC Direct Bilirubin AST ALT Alkaline Phosphatase Total Creatine Kinase CK-MB (CK-2) C-Reactive Protein Total Protein Albumin Vitamin B12 Urine WBC (Auto) Salicylates Acetaminophen Miscellaneous Test Crossmatch 04/03/19 04/03/19 04/03/19 02:58 03:40 03:40 WBC RBC 2.87 L Hgb 9.3 L Hct 27.0 L MCV MCH MCHC RDW 17.2 H Plt Count 65 L Lymph % (Auto) [place] % (Auto) 9.8 H Lymph # 1.1 L Seg Neutrophils % Seg Neuts % (Manual) Lymphocytes % (Manual) Nucleated RBC % Seg Neutrophils # Seg Neutrophils # Man Lymphocytes # (Manual) Monocytes # (Manual) PT INR APTT D-Dimer POC ABG pH ABG pH POC ABG pCO2 POC ABG pO2 ABG pO2 ABG HCO3 ABG O2 Saturation ABG Base Excess ABG Hemoglobin VBG pH Oxyhemoglobin Sodium 147 H Potassium 3.5 L Chloride 116.7 H Carbon Dioxide 18 L BUN Creatinine 0.4 L Glucose 150 H POC Glucose 166 H Hemoglobin A1c Lactic Acid Calcium 8.1 L Phosphorus 2.20 L Magnesium Iron TIBC Direct Bilirubin AST 594 H ALT 861 H Alkaline Phosphatase 299 H Total Creatine Kinase CK-MB (CK-2) C-Reactive Protein Total Protein 4.4 L Albumin 2.1 L Vitamin B12 Urine WBC (Auto) Salicylates Acetaminophen Miscellaneous Test Crossmatch 04/03/19 04/03/19 04/03/19 05:35 07:02 08:23 WBC RBC Hgb Hct MCV MCH MCHC RDW Plt Count Lymph % (Auto) [place] % (Auto) Lymph # Seg Neutrophils % Seg Neuts % (Manual) Lymphocytes % (Manual) Nucleated RBC % Seg Neutrophils # Seg Neutrophils # Man Lymphocytes # (Manual) Monocytes # (Manual) PT INR APTT D-Dimer POC ABG pH ABG pH POC ABG pCO2 POC ABG pO2 ABG pO2 97.7 H ABG HCO3 19.3 L ABG O2 Saturation ABG Base Excess -5.0 L ABG Hemoglobin 8.0 L VBG pH Oxyhemoglobin Sodium Potassium Chloride Carbon Dioxide BUN Creatinine Glucose POC Glucose 135 H 132 H Hemoglobin A1c Lactic Acid Calcium Phosphorus Magnesium Iron TIBC Direct Bilirubin AST ALT Alkaline Phosphatase Total Creatine Kinase CK-MB (CK-2) C-Reactive Protein Total Protein Albumin Vitamin B12 Urine WBC (Auto) Salicylates Acetaminophen Miscellaneous Test Crossmatch 04/03/19 04/03/19 04/03/19 11:58 15:11 17:53 WBC RBC Hgb Hct MCV MCH MCHC RDW Plt Count Lymph % (Auto) [place] % (Auto) Lymph # Seg Neutrophils % Seg Neuts % (Manual) Lymphocytes % (Manual) Nucleated RBC % Seg Neutrophils # Seg Neutrophils # Man Lymphocytes # (Manual) Monocytes # (Manual) PT INR APTT D-Dimer POC ABG pH ABG pH POC ABG pCO2 POC ABG pO2 ABG pO2 ABG HCO3 ABG O2 Saturation ABG Base Excess ABG Hemoglobin VBG pH Oxyhemoglobin Sodium Potassium Chloride Carbon Dioxide BUN Creatinine Glucose POC Glucose 179 H 213 H 223 H Hemoglobin A1c Lactic Acid Calcium Phosphorus Magnesium Iron TIBC Direct Bilirubin AST ALT Alkaline Phosphatase Total Creatine Kinase CK-MB (CK-2) C-Reactive Protein Total Protein Albumin Vitamin B12 Urine WBC (Auto) Salicylates Acetaminophen Miscellaneous Test Crossmatch 04/03/19 04/04/19 04/04/19 23:06 02:36 06:41 WBC RBC Hgb Hct MCV MCH MCHC RDW Plt Count Lymph % (Auto) [place] % (Auto) Lymph # Seg Neutrophils % Seg Neuts % (Manual) Lymphocytes % (Manual) Nucleated RBC % Seg Neutrophils # Seg Neutrophils # Man Lymphocytes # (Manual) Monocytes # (Manual) PT INR APTT D-Dimer POC ABG pH ABG pH POC ABG pCO2 POC ABG pO2 ABG pO2 ABG HCO3 ABG O2 Saturation ABG Base Excess ABG Hemoglobin VBG pH Oxyhemoglobin Sodium Potassium Chloride Carbon Dioxide BUN Creatinine Glucose POC Glucose 189 H 157 H 131 H Hemoglobin A1c Lactic Acid Calcium Phosphorus Magnesium Iron TIBC Direct Bilirubin AST ALT Alkaline Phosphatase Total Creatine Kinase CK-MB (CK-2) C-Reactive Protein Total Protein Albumin Vitamin B12 Urine WBC (Auto) Salicylates Acetaminophen Miscellaneous Test Crossmatch 04/04/19 04/04/19 04/04/19 11:42 15:45 18:21 WBC RBC Hgb Hct MCV MCH MCHC RDW Plt Count Lymph % (Auto) [place] % (Auto) Lymph # Seg Neutrophils % Seg Neuts % (Manual) Lymphocytes % (Manual) Nucleated RBC % Seg Neutrophils # Seg Neutrophils # Man Lymphocytes # (Manual) Monocytes # (Manual) PT INR APTT D-Dimer POC ABG pH ABG pH POC ABG pCO2 POC ABG pO2 ABG pO2 ABG HCO3 ABG O2 Saturation ABG Base Excess ABG Hemoglobin VBG pH Oxyhemoglobin Sodium Potassium Chloride Carbon Dioxide BUN Creatinine Glucose POC Glucose 233 H 236 H 255 H Hemoglobin A1c Lactic Acid Calcium Phosphorus Magnesium Iron TIBC Direct Bilirubin AST ALT Alkaline Phosphatase Total Creatine Kinase CK-MB (CK-2) C-Reactive Protein Total Protein Albumin Vitamin B12 Urine WBC (Auto) Salicylates Acetaminophen Miscellaneous Test Crossmatch 04/04/19 04/05/19 04/05/19 21:21 03:06 06:05 WBC RBC 2.68 L Hgb 8.5 L Hct 26.3 L MCV 98 H MCH MCHC RDW 17.4 H Plt Count Lymph % (Auto) [place] % (Auto) Lymph # Seg Neutrophils % Seg Neuts % (Manual) Lymphocytes % (Manual) Nucleated RBC % Seg Neutrophils # Seg Neutrophils # Man Lymphocytes # (Manual) Monocytes # (Manual) PT INR APTT D-Dimer POC ABG pH ABG pH POC ABG pCO2 POC ABG pO2 ABG pO2 ABG HCO3 ABG O2 Saturation ABG Base Excess ABG Hemoglobin VBG pH Oxyhemoglobin Sodium Potassium Chloride Carbon Dioxide BUN Creatinine Glucose POC Glucose 132 H 161 H Hemoglobin A1c Lactic Acid Calcium Phosphorus Magnesium Iron TIBC Direct Bilirubin AST ALT Alkaline Phosphatase Total Creatine Kinase CK-MB (CK-2) C-Reactive Protein Total Protein Albumin Vitamin B12 Urine WBC (Auto) Salicylates Acetaminophen Miscellaneous Test Crossmatch 04/05/19 04/05/19 04/05/19 06:05 06:49 10:23 WBC RBC Hgb Hct MCV MCH MCHC RDW Plt Count Lymph % (Auto) [place] % (Auto) Lymph # Seg Neutrophils % Seg Neuts % (Manual) Lymphocytes % (Manual) Nucleated RBC % Seg Neutrophils # Seg Neutrophils # Man Lymphocytes # (Manual) Monocytes # (Manual) PT INR APTT D-Dimer POC ABG pH ABG pH POC ABG pCO2 POC ABG pO2 ABG pO2 ABG HCO3 ABG O2 Saturation ABG Base Excess ABG Hemoglobin VBG pH Oxyhemoglobin Sodium Potassium Chloride 112.5 H Carbon Dioxide BUN Creatinine 0.2 L Glucose 237 H POC Glucose 283 H 296 H Hemoglobin A1c Lactic Acid Calcium 7.9 L Phosphorus Magnesium Iron TIBC Direct Bilirubin AST ALT Alkaline Phosphatase Total Creatine Kinase CK-MB (CK-2) C-Reactive Protein Total Protein Albumin Vitamin B12 Urine WBC (Auto) Salicylates Acetaminophen Miscellaneous Test Crossmatch 04/05/19 04/05/19 04/05/19 14:46 18:19 20:35 WBC RBC Hgb Hct MCV MCH MCHC RDW Plt Count Lymph % (Auto) [place] % (Auto) Lymph # Seg Neutrophils % Seg Neuts % (Manual) Lymphocytes % (Manual) Nucleated RBC % Seg Neutrophils # Seg Neutrophils # Man Lymphocytes # (Manual) Monocytes # (Manual) PT INR APTT D-Dimer POC ABG pH ABG pH POC ABG pCO2 POC ABG pO2 ABG pO2 ABG HCO3 ABG O2 Saturation ABG Base Excess ABG Hemoglobin VBG pH Oxyhemoglobin Sodium Potassium Chloride Carbon Dioxide BUN Creatinine Glucose POC Glucose 225 H 259 H 236 H Hemoglobin A1c Lactic Acid Calcium Phosphorus Magnesium Iron TIBC Direct Bilirubin AST ALT Alkaline Phosphatase Total Creatine Kinase CK-MB (CK-2) C-Reactive Protein Total Protein Albumin Vitamin B12 Urine WBC (Auto) Salicylates Acetaminophen Miscellaneous Test Crossmatch 04/05/19 04/06/19 04/06/19 23:11 00:06 03:14 WBC RBC Hgb Hct MCV MCH MCHC RDW Plt Count Lymph % (Auto) [place] % (Auto) Lymph # Seg Neutrophils % Seg Neuts % (Manual) Lymphocytes % (Manual) Nucleated RBC % Seg Neutrophils # Seg Neutrophils # Man Lymphocytes # (Manual) Monocytes # (Manual) PT INR APTT D-Dimer 4526.86 H POC ABG pH ABG pH POC ABG pCO2 POC ABG pO2 ABG pO2 ABG HCO3 ABG O2 Saturation ABG Base Excess ABG Hemoglobin VBG pH Oxyhemoglobin Sodium Potassium Chloride Carbon Dioxide BUN Creatinine Glucose POC Glucose 205 H 228 H Hemoglobin A1c Lactic Acid Calcium Phosphorus Magnesium Iron TIBC Direct Bilirubin AST ALT Alkaline Phosphatase Total Creatine Kinase CK-MB (CK-2) C-Reactive Protein Total Protein Albumin Vitamin B12 Urine WBC (Auto) Salicylates Acetaminophen Miscellaneous Test Crossmatch 04/06/19 04/06/19 04/06/19 05:20 05:20 07:57 WBC 15.1 H RBC 2.90 L Hgb 9.1 L Hct 28.0 L MCV MCH MCHC RDW 17.3 H Plt Count Lymph % (Auto) [place] % (Auto) Lymph # Seg Neutrophils % Seg Neuts % (Manual) Lymphocytes % (Manual) Nucleated RBC % Seg Neutrophils # Seg Neutrophils # Man Lymphocytes # (Manual) Monocytes # (Manual) PT INR APTT D-Dimer POC ABG pH ABG pH POC ABG pCO2 POC ABG pO2 ABG pO2 ABG HCO3 ABG O2 Saturation ABG Base Excess ABG Hemoglobin VBG pH Oxyhemoglobin Sodium Potassium Chloride Carbon Dioxide BUN Creatinine 0.2 L Glucose 161 H POC Glucose 191 H Hemoglobin A1c Lactic Acid Calcium 8.0 L Phosphorus Magnesium Iron TIBC Direct Bilirubin AST ALT Alkaline Phosphatase Total Creatine Kinase CK-MB (CK-2) C-Reactive Protein Total Protein Albumin Vitamin B12 Urine WBC (Auto) Salicylates Acetaminophen Miscellaneous Test Crossmatch 04/06/19 04/06/19 04/06/19 12:09 18:24 22:07 WBC RBC Hgb Hct MCV MCH MCHC RDW Plt Count Lymph % (Auto) [place] % (Auto) Lymph # Seg Neutrophils % Seg Neuts % (Manual) Lymphocytes % (Manual) Nucleated RBC % Seg Neutrophils # Seg Neutrophils # Man Lymphocytes # (Manual) Monocytes # (Manual) PT INR APTT D-Dimer POC ABG pH ABG pH POC ABG pCO2 POC ABG pO2 ABG pO2 ABG HCO3 ABG O2 Saturation ABG Base Excess ABG Hemoglobin VBG pH Oxyhemoglobin Sodium Potassium Chloride Carbon Dioxide BUN Creatinine Glucose POC Glucose 143 H 161 H 140 H Hemoglobin A1c Lactic Acid Calcium Phosphorus Magnesium Iron TIBC Direct Bilirubin AST ALT Alkaline Phosphatase Total Creatine Kinase CK-MB (CK-2) C-Reactive Protein Total Protein Albumin Vitamin B12 Urine WBC (Auto) Salicylates Acetaminophen Miscellaneous Test Crossmatch 04/07/19 04/07/19 04/07/19 03:00 04:30 04:30 WBC 13.0 H RBC 2.65 L Hgb 8.3 L Hct 25.5 L MCV MCH MCHC RDW 17.0 H Plt Count Lymph % (Auto) [place] % (Auto) Lymph # Seg Neutrophils % Seg Neuts % (Manual) Lymphocytes % (Manual) Nucleated RBC % Seg Neutrophils # Seg Neutrophils # Man Lymphocytes # (Manual) Monocytes # (Manual) PT INR APTT D-Dimer POC ABG pH ABG pH POC ABG pCO2 POC ABG pO2 ABG pO2 ABG HCO3 ABG O2 Saturation ABG Base Excess ABG Hemoglobin VBG pH Oxyhemoglobin Sodium Potassium Chloride Carbon Dioxide BUN Creatinine 0.2 L Glucose 208 H POC Glucose 224 H Hemoglobin A1c Lactic Acid Calcium 7.7 L Phosphorus Magnesium Iron TIBC Direct Bilirubin AST ALT Alkaline Phosphatase Total Creatine Kinase CK-MB (CK-2) C-Reactive Protein Total Protein Albumin Vitamin B12 Urine WBC (Auto) Salicylates Acetaminophen Miscellaneous Test Crossmatch 04/07/19 04/07/19 04/07/19 05:47 08:27 10:33 WBC RBC Hgb Hct MCV MCH MCHC RDW Plt Count Lymph % (Auto) [place] % (Auto) Lymph # Seg Neutrophils % Seg Neuts % (Manual) Lymphocytes % (Manual) Nucleated RBC % Seg Neutrophils # Seg Neutrophils # Man Lymphocytes # (Manual) Monocytes # (Manual) PT INR APTT D-Dimer POC ABG pH ABG pH POC ABG pCO2 POC ABG pO2 ABG pO2 ABG HCO3 ABG O2 Saturation ABG Base Excess ABG Hemoglobin VBG pH Oxyhemoglobin Sodium Potassium Chloride Carbon Dioxide BUN Creatinine Glucose POC Glucose 225 H 176 H 207 H Hemoglobin A1c Lactic Acid Calcium Phosphorus Magnesium Iron TIBC Direct Bilirubin AST ALT Alkaline Phosphatase Total Creatine Kinase CK-MB (CK-2) C-Reactive Protein Total Protein Albumin Vitamin B12 Urine WBC (Auto) Salicylates Acetaminophen Miscellaneous Test Crossmatch 04/07/19 04/07/19 04/07/19 14:13 18:32 22:42 WBC RBC Hgb Hct MCV MCH MCHC RDW Plt Count Lymph % (Auto) [place] % (Auto) Lymph # Seg Neutrophils % Seg Neuts % (Manual) Lymphocytes % (Manual) Nucleated RBC % Seg Neutrophils # Seg Neutrophils # Man Lymphocytes # (Manual) Monocytes # (Manual) PT INR APTT D-Dimer POC ABG pH ABG pH POC ABG pCO2 POC ABG pO2 ABG pO2 ABG HCO3 ABG O2 Saturation ABG Base Excess ABG Hemoglobin VBG pH Oxyhemoglobin Sodium Potassium Chloride Carbon Dioxide BUN Creatinine Glucose POC Glucose 219 H 227 H 238 H Hemoglobin A1c Lactic Acid Calcium Phosphorus Magnesium Iron TIBC Direct Bilirubin AST ALT Alkaline Phosphatase Total Creatine Kinase CK-MB (CK-2) C-Reactive Protein Total Protein Albumin Vitamin B12 Urine WBC (Auto) Salicylates Acetaminophen Miscellaneous Test Crossmatch 0904/08/19 04/08/19 02:31 05:37 14:10 WBC RBC Hgb Hct MCV MCH MCHC RDW Plt Count Lymph % (Auto) [place] % (Auto) Lymph # Seg Neutrophils % Seg Neuts % (Manual) Lymphocytes % (Manual) Nucleated RBC % Seg Neutrophils # Seg Neutrophils # Man Lymphocytes # (Manual) Monocytes # (Manual) PT INR APTT D-Dimer POC ABG pH ABG pH POC ABG pCO2 POC ABG pO2 ABG pO2 ABG HCO3 ABG O2 Saturation ABG Base Excess ABG Hemoglobin VBG pH Oxyhemoglobin Sodium Potassium Chloride Carbon Dioxide BUN Creatinine Glucose POC Glucose 194 H 194 H 139 H Hemoglobin A1c Lactic Acid Calcium Phosphorus Magnesium Iron TIBC Direct Bilirubin AST ALT Alkaline Phosphatase Total Creatine Kinase CK-MB (CK-2) C-Reactive Protein Total Protein Albumin Vitamin B12 Urine WBC (Auto) Salicylates Acetaminophen Miscellaneous Test Crossmatch 04/08/19 04/08/19 04/09/19 17:43 23:20 03:28 WBC RBC Hgb Hct MCV MCH MCHC RDW Plt Count Lymph % (Auto) [place] % (Auto) Lymph # Seg Neutrophils % Seg Neuts % (Manual) Lymphocytes % (Manual) Nucleated RBC % Seg Neutrophils # Seg Neutrophils # Man Lymphocytes # (Manual) Monocytes # (Manual) PT INR APTT D-Dimer POC ABG pH ABG pH POC ABG pCO2 POC ABG pO2 ABG pO2 ABG HCO3 ABG O2 Saturation ABG Base Excess ABG Hemoglobin VBG pH Oxyhemoglobin Sodium Potassium Chloride Carbon Dioxide BUN Creatinine Glucose POC Glucose 261 H 277 H 301 H Hemoglobin A1c Lactic Acid Calcium Phosphorus Magnesium Iron TIBC Direct Bilirubin AST ALT Alkaline Phosphatase Total Creatine Kinase CK-MB (CK-2) C-Reactive Protein Total Protein Albumin Vitamin B12 Urine WBC (Auto) Salicylates Acetaminophen Miscellaneous Test Crossmatch 04/09/19 04/09/19 04/09/19 05:35 05:35 05:35 WBC RBC 2.78 L Hgb 9.0 L Hct 26.7 L MCV MCH MCHC RDW 17.0 H Plt Count Lymph % (Auto) [place] % (Auto) Lymph # Seg Neutrophils % Seg Neuts % (Manual) Lymphocytes % (Manual) Nucleated RBC % Seg Neutrophils # Seg Neutrophils # Man Lymphocytes # (Manual) Monocytes # (Manual) PT INR APTT D-Dimer POC ABG pH ABG pH POC ABG pCO2 POC ABG pO2 ABG pO2 ABG HCO3 ABG O2 Saturation ABG Base Excess ABG Hemoglobin VBG pH Oxyhemoglobin Sodium Potassium Chloride Carbon Dioxide 31 H BUN Creatinine 0.2 L Glucose 218 H POC Glucose 240 H Hemoglobin A1c Lactic Acid Calcium Phosphorus Magnesium Iron TIBC Direct Bilirubin AST ALT Alkaline Phosphatase Total Creatine Kinase CK-MB (CK-2) C-Reactive Protein Total Protein Albumin Vitamin B12 Urine WBC (Auto) Salicylates Acetaminophen Miscellaneous Test Crossmatch 04/09/19 04/09/19 04/09/19 09:01 12:23 17:33 WBC RBC Hgb Hct MCV MCH MCHC RDW Plt Count Lymph % (Auto) [place] % (Auto) Lymph # Seg Neutrophils % Seg Neuts % (Manual) Lymphocytes % (Manual) Nucleated RBC % Seg Neutrophils # Seg Neutrophils # Man Lymphocytes # (Manual) Monocytes # (Manual) PT INR APTT D-Dimer POC ABG pH ABG pH POC ABG pCO2 POC ABG pO2 ABG pO2 ABG HCO3 ABG O2 Saturation ABG Base Excess ABG Hemoglobin VBG pH Oxyhemoglobin Sodium Potassium Chloride Carbon Dioxide BUN Creatinine Glucose POC Glucose 160 H 162 H 149 H Hemoglobin A1c Lactic Acid Calcium Phosphorus Magnesium Iron TIBC Direct Bilirubin AST ALT Alkaline Phosphatase Total Creatine Kinase CK-MB (CK-2) C-Reactive Protein Total Protein Albumin Vitamin B12 Urine WBC (Auto) Salicylates Acetaminophen Miscellaneous Test Crossmatch 04/09/19 04/09/19 04/10/19 21:26 22:28 03:16 WBC RBC Hgb Hct MCV MCH MCHC RDW Plt Count Lymph % (Auto) [place] % (Auto) Lymph # Seg Neutrophils % Seg Neuts % (Manual) Lymphocytes % (Manual) Nucleated RBC % Seg Neutrophils # Seg Neutrophils # Man Lymphocytes # (Manual) Monocytes # (Manual) PT INR APTT D-Dimer POC ABG pH ABG pH POC ABG pCO2 POC ABG pO2 ABG pO2 ABG HCO3 ABG O2 Saturation ABG Base Excess ABG Hemoglobin VBG pH Oxyhemoglobin Sodium Potassium Chloride Carbon Dioxide BUN Creatinine Glucose POC Glucose 196 H 224 H 163 H Hemoglobin A1c Lactic Acid Calcium Phosphorus Magnesium Iron TIBC Direct Bilirubin AST ALT Alkaline Phosphatase Total Creatine Kinase CK-MB (CK-2) C-Reactive Protein Total Protein Albumin Vitamin B12 Urine WBC (Auto) Salicylates Acetaminophen Miscellaneous Test Crossmatch 04/10/19 04/10/19 04/10/19 04:15 04:15 05:30 WBC RBC 2.88 L Hgb 9.2 L Hct 27.9 L MCV MCH MCHC RDW 17.0 H Plt Count 454 H Lymph % (Auto) [place] % (Auto) Lymph # Seg Neutrophils % Seg Neuts % (Manual) Lymphocytes % (Manual) Nucleated RBC % Seg Neutrophils # Seg Neutrophils # Man Lymphocytes # (Manual) Monocytes # (Manual) PT INR APTT D-Dimer POC ABG pH ABG pH POC ABG pCO2 POC ABG pO2 ABG pO2 ABG HCO3 ABG O2 Saturation ABG Base Excess ABG Hemoglobin VBG pH Oxyhemoglobin Sodium Potassium Chloride Carbon Dioxide 32 H BUN Creatinine 0.2 L Glucose 126 H POC Glucose 135 H Hemoglobin A1c Lactic Acid Calcium Phosphorus Magnesium Iron TIBC Direct Bilirubin AST ALT Alkaline Phosphatase Total Creatine Kinase CK-MB (CK-2) C-Reactive Protein Total Protein Albumin Vitamin B12 Urine WBC (Auto) Salicylates Acetaminophen Miscellaneous Test Crossmatch 04/10/19 04/10/19 04/10/19 12:14 15:29 23:38 WBC RBC Hgb Hct MCV MCH MCHC RDW Plt Count Lymph % (Auto) [place] % (Auto) Lymph # Seg Neutrophils % Seg Neuts % (Manual) Lymphocytes % (Manual) Nucleated RBC % Seg Neutrophils # Seg Neutrophils # Man Lymphocytes # (Manual) Monocytes # (Manual) PT INR APTT D-Dimer POC ABG pH ABG pH POC ABG pCO2 POC ABG pO2 ABG pO2 ABG HCO3 ABG O2 Saturation ABG Base Excess ABG Hemoglobin VBG pH Oxyhemoglobin Sodium Potassium Chloride Carbon Dioxide BUN Creatinine Glucose POC Glucose 109 H 149 H 268 H Hemoglobin A1c Lactic Acid Calcium Phosphorus Magnesium Iron TIBC Direct Bilirubin AST ALT Alkaline Phosphatase Total Creatine Kinase CK-MB (CK-2) C-Reactive Protein Total Protein Albumin Vitamin B12 Urine WBC (Auto) Salicylates Acetaminophen Miscellaneous Test Crossmatch 04/11/19 04/11/19 04/11/19 05:27 12:08 18:08 WBC RBC Hgb Hct MCV MCH MCHC RDW Plt Count Lymph % (Auto) [place] % (Auto) Lymph # Seg Neutrophils % Seg Neuts % (Manual) Lymphocytes % (Manual) Nucleated RBC % Seg Neutrophils # Seg Neutrophils # Man Lymphocytes # (Manual) Monocytes # (Manual) PT INR APTT D-Dimer POC ABG pH ABG pH POC ABG pCO2 POC ABG pO2 ABG pO2 ABG HCO3 ABG O2 Saturation ABG Base Excess ABG Hemoglobin VBG pH Oxyhemoglobin Sodium Potassium Chloride Carbon Dioxide BUN Creatinine Glucose POC Glucose 109 H 185 H 190 H Hemoglobin A1c Lactic Acid Calcium Phosphorus Magnesium Iron TIBC Direct Bilirubin AST ALT Alkaline Phosphatase Total Creatine Kinase CK-MB (CK-2) C-Reactive Protein Total Protein Albumin Vitamin B12 Urine WBC (Auto) Salicylates Acetaminophen Miscellaneous Test Crossmatch 04/11/19 04/12/19 04/12/19 23:23 06:00 11:42 WBC RBC Hgb Hct MCV MCH MCHC RDW Plt Count Lymph % (Auto) [place] % (Auto) Lymph # Seg Neutrophils % Seg Neuts % (Manual) Lymphocytes % (Manual) Nucleated RBC % Seg Neutrophils # Seg Neutrophils # Man Lymphocytes # (Manual) Monocytes # (Manual) PT INR APTT D-Dimer POC ABG pH ABG pH POC ABG pCO2 POC ABG pO2 ABG pO2 ABG HCO3 ABG O2 Saturation ABG Base Excess ABG Hemoglobin VBG pH Oxyhemoglobin Sodium Potassium Chloride Carbon Dioxide BUN Creatinine Glucose POC Glucose 127 H 201 H 161 H Hemoglobin A1c Lactic Acid Calcium Phosphorus Magnesium Iron TIBC Direct Bilirubin AST ALT Alkaline Phosphatase Total Creatine Kinase CK-MB (CK-2) C-Reactive Protein Total Protein Albumin Vitamin B12 Urine WBC (Auto) Salicylates Acetaminophen Miscellaneous Test Crossmatch 04/12/19 04/12/19 04/12/19 17:56 20:07 21:59 WBC RBC Hgb Hct MCV MCH MCHC RDW Plt Count Lymph % (Auto) [place] % (Auto) Lymph # Seg Neutrophils % Seg Neuts % (Manual) Lymphocytes % (Manual) Nucleated RBC % Seg Neutrophils # Seg Neutrophils # Man Lymphocytes # (Manual) Monocytes # (Manual) PT INR APTT D-Dimer POC ABG pH ABG pH POC ABG pCO2 POC ABG pO2 ABG pO2 ABG HCO3 ABG O2 Saturation ABG Base Excess ABG Hemoglobin VBG pH Oxyhemoglobin Sodium Potassium Chloride Carbon Dioxide BUN Creatinine Glucose POC Glucose 145 H 158 H 203 H Hemoglobin A1c Lactic Acid Calcium Phosphorus Magnesium Iron TIBC Direct Bilirubin AST ALT Alkaline Phosphatase Total Creatine Kinase CK-MB (CK-2) C-Reactive Protein Total Protein Albumin Vitamin B12 Urine WBC (Auto) Salicylates Acetaminophen Miscellaneous Test Crossmatch 04/12/19 04/13/19 04/13/19 23:37 08:50 08:50 WBC 15.7 H RBC 3.12 L Hgb Hct 30.2 L MCV MCH 33 H MCHC RDW 18.0 H Plt Count 678 H Lymph % (Auto) [place] % (Auto) Lymph # Seg Neutrophils % Seg Neuts % (Manual) Lymphocytes % (Manual) Nucleated RBC % Seg Neutrophils # Seg Neutrophils # Man Lymphocytes # (Manual) Monocytes # (Manual) PT INR APTT D-Dimer POC ABG pH ABG pH POC ABG pCO2 POC ABG pO2 ABG pO2 ABG HCO3 ABG O2 Saturation ABG Base Excess ABG Hemoglobin VBG pH Oxyhemoglobin Sodium Potassium Chloride Carbon Dioxide BUN Creatinine < 0.2 L Glucose 46 L POC Glucose 238 H Hemoglobin A1c Lactic Acid Calcium Phosphorus Magnesium Iron TIBC Direct Bilirubin AST ALT Alkaline Phosphatase Total Creatine Kinase CK-MB (CK-2) C-Reactive Protein Total Protein Albumin Vitamin B12 Urine WBC (Auto) Salicylates Acetaminophen Miscellaneous Test Crossmatch 04/13/19 04/13/19 04/13/19 11:56 17:27 23:57 WBC RBC Hgb Hct MCV MCH MCHC RDW Plt Count Lymph % (Auto) [place] % (Auto) Lymph # Seg Neutrophils % Seg Neuts % (Manual) Lymphocytes % (Manual) Nucleated RBC % Seg Neutrophils # Seg Neutrophils # Man Lymphocytes # (Manual) Monocytes # (Manual) PT INR APTT D-Dimer POC ABG pH ABG pH POC ABG pCO2 POC ABG pO2 ABG pO2 ABG HCO3 ABG O2 Saturation ABG Base Excess ABG Hemoglobin VBG pH Oxyhemoglobin Sodium Potassium Chloride Carbon Dioxide BUN Creatinine Glucose POC Glucose 40 L 66 L 65 L Hemoglobin A1c Lactic Acid Calcium Phosphorus Magnesium Iron TIBC Direct Bilirubin AST ALT Alkaline Phosphatase Total Creatine Kinase CK-MB (CK-2) C-Reactive Protein Total Protein Albumin Vitamin B12 Urine WBC (Auto) Salicylates Acetaminophen Miscellaneous Test Crossmatch 04/14/19 04/14/19 04/14/19 05:28 08:20 08:20 WBC 17.8 H RBC 3.26 L Hgb Hct MCV 98 H MCH MCHC RDW 18.3 H Plt Count 622 H Lymph % (Auto) [place] % (Auto) Lymph # Seg Neutrophils % Seg Neuts % (Manual) Lymphocytes % (Manual) Nucleated RBC % Seg Neutrophils # Seg Neutrophils # Man Lymphocytes # (Manual) Monocytes # (Manual) PT INR APTT D-Dimer POC ABG pH ABG pH POC ABG pCO2 POC ABG pO2 ABG pO2 ABG HCO3 ABG O2 Saturation ABG Base Excess ABG Hemoglobin VBG pH Oxyhemoglobin Sodium Potassium Chloride Carbon Dioxide BUN 6 L Creatinine < 0.2 L Glucose 154 H POC Glucose 149 H Hemoglobin A1c Lactic Acid Calcium Phosphorus Magnesium Iron TIBC Direct Bilirubin AST ALT Alkaline Phosphatase Total Creatine Kinase CK-MB (CK-2) C-Reactive Protein Total Protein Albumin Vitamin B12 Urine WBC (Auto) Salicylates Acetaminophen Miscellaneous Test Crossmatch 04/14/19 04/14/19 04/14/19 12:16 17:54 23:35 WBC RBC Hgb Hct MCV MCH MCHC RDW Plt Count Lymph % (Auto) [place] % (Auto) Lymph # Seg Neutrophils % Seg Neuts % (Manual) Lymphocytes % (Manual) Nucleated RBC % Seg Neutrophils # Seg Neutrophils # Man Lymphocytes # (Manual) Monocytes # (Manual) PT INR APTT D-Dimer POC ABG pH ABG pH POC ABG pCO2 POC ABG pO2 ABG pO2 ABG HCO3 ABG O2 Saturation ABG Base Excess ABG Hemoglobin VBG pH Oxyhemoglobin Sodium Potassium Chloride Carbon Dioxide BUN Creatinine Glucose POC Glucose 176 H 224 H 173 H Hemoglobin A1c Lactic Acid Calcium Phosphorus Magnesium Iron TIBC Direct Bilirubin AST ALT Alkaline Phosphatase Total Creatine Kinase CK-MB (CK-2) C-Reactive Protein Total Protein Albumin Vitamin B12 Urine WBC (Auto) Salicylates Acetaminophen Miscellaneous Test Crossmatch 04/15/19 04/15/19 04/15/19 05:44 12:44 18:06 WBC RBC Hgb Hct MCV MCH MCHC RDW Plt Count Lymph % (Auto) [place] % (Auto) Lymph # Seg Neutrophils % Seg Neuts % (Manual) Lymphocytes % (Manual) Nucleated RBC % Seg Neutrophils # Seg Neutrophils # Man Lymphocytes # (Manual) Monocytes # (Manual) PT INR APTT D-Dimer POC ABG pH 7.461 H ABG pH POC ABG pCO2 45.5 H POC ABG pO2 ABG pO2 ABG HCO3 ABG O2 Saturation ABG Base Excess ABG Hemoglobin VBG pH Oxyhemoglobin Sodium Potassium Chloride Carbon Dioxide BUN Creatinine Glucose POC Glucose 255 H 365 H Hemoglobin A1c Lactic Acid Calcium Phosphorus Magnesium Iron TIBC Direct Bilirubin AST ALT Alkaline Phosphatase Total Creatine Kinase CK-MB (CK-2) C-Reactive Protein Total Protein Albumin Vitamin B12 Urine WBC (Auto) Salicylates Acetaminophen Miscellaneous Test Crossmatch 04/15/19 04/15/19 04/16/19 18:06 23:34 00:40 WBC RBC Hgb Hct MCV MCH MCHC RDW Plt Count Lymph % (Auto) [place] % (Auto) Lymph # Seg Neutrophils % Seg Neuts % (Manual) Lymphocytes % (Manual) Nucleated RBC % Seg Neutrophils # Seg Neutrophils # Man Lymphocytes # (Manual) Monocytes # (Manual) PT INR APTT D-Dimer POC ABG pH ABG pH POC ABG pCO2 POC ABG pO2 ABG pO2 ABG HCO3 ABG O2 Saturation ABG Base Excess ABG Hemoglobin VBG pH Oxyhemoglobin Sodium Potassium Chloride Carbon Dioxide BUN Creatinine Glucose POC Glucose 157 H 56 L 107 H Hemoglobin A1c Lactic Acid Calcium Phosphorus Magnesium Iron TIBC Direct Bilirubin AST ALT Alkaline Phosphatase Total Creatine Kinase CK-MB (CK-2) C-Reactive Protein Total Protein Albumin Vitamin B12 Urine WBC (Auto) Salicylates Acetaminophen Miscellaneous Test Crossmatch 04/16/19 04/16/19 04/16/19 09:06 09:06 11:21 WBC 12.9 H RBC 2.95 L Hgb 9.7 L Hct 28.9 L MCV 98 H MCH 33 H MCHC RDW 17.7 H Plt Count 581 H Lymph % (Auto) [place] % (Auto) Lymph # Seg Neutrophils % Seg Neuts % (Manual) Lymphocytes % (Manual) Nucleated RBC % Seg Neutrophils # Seg Neutrophils # Man Lymphocytes # (Manual) Monocytes # (Manual) PT INR APTT D-Dimer POC ABG pH ABG pH POC ABG pCO2 POC ABG pO2 ABG pO2 ABG HCO3 ABG O2 Saturation ABG Base Excess ABG Hemoglobin VBG pH Oxyhemoglobin Sodium Potassium Chloride Carbon Dioxide 31 H BUN Creatinine 0.2 L Glucose 155 H POC Glucose 184 H Hemoglobin A1c Lactic Acid Calcium Phosphorus Magnesium Iron TIBC Direct Bilirubin AST ALT Alkaline Phosphatase Total Creatine Kinase CK-MB (CK-2) C-Reactive Protein Total Protein Albumin Vitamin B12 Urine WBC (Auto) Salicylates Acetaminophen Miscellaneous Test Crossmatch 04/16/19 04/16/19 04/16/19 17:28 20:17 23:09 WBC RBC Hgb Hct MCV MCH MCHC RDW Plt Count Lymph % (Auto) [place] % (Auto) Lymph # Seg Neutrophils % Seg Neuts % (Manual) Lymphocytes % (Manual) Nucleated RBC % Seg Neutrophils # Seg Neutrophils # Man Lymphocytes # (Manual) Monocytes # (Manual) PT INR APTT D-Dimer POC ABG pH 7.479 H ABG pH POC ABG pCO2 POC ABG pO2 71 L ABG pO2 ABG HCO3 ABG O2 Saturation ABG Base Excess ABG Hemoglobin VBG pH Oxyhemoglobin Sodium Potassium Chloride Carbon Dioxide BUN Creatinine Glucose POC Glucose 173 H 178 H Hemoglobin A1c Lactic Acid Calcium Phosphorus Magnesium Iron TIBC Direct Bilirubin AST ALT Alkaline Phosphatase Total Creatine Kinase CK-MB (CK-2) C-Reactive Protein Total Protein Albumin Vitamin B12 Urine WBC (Auto) Salicylates Acetaminophen Miscellaneous Test Crossmatch 04/17/19 04/17/19 04/17/19 05:02 11:39 12:48 WBC RBC Hgb Hct MCV MCH MCHC RDW Plt Count Lymph % (Auto) [place] % (Auto) Lymph # Seg Neutrophils % Seg Neuts % (Manual) Lymphocytes % (Manual) Nucleated RBC % Seg Neutrophils # Seg Neutrophils # Man Lymphocytes # (Manual) Monocytes # (Manual) PT INR APTT D-Dimer POC ABG pH 7.557 H ABG pH POC ABG pCO2 32.8 L POC ABG pO2 149 H ABG pO2 ABG HCO3 ABG O2 Saturation ABG Base Excess ABG Hemoglobin VBG pH Oxyhemoglobin Sodium Potassium Chloride Carbon Dioxide BUN Creatinine Glucose POC Glucose 252 H 124 H Hemoglobin A1c Lactic Acid Calcium Phosphorus Magnesium Iron TIBC Direct Bilirubin AST ALT Alkaline Phosphatase Total Creatine Kinase CK-MB (CK-2) C-Reactive Protein Total Protein Albumin Vitamin B12 Urine WBC (Auto) Salicylates Acetaminophen Miscellaneous Test Crossmatch 04/17/19 04/18/19 04/18/19 23:31 05:32 11:34 WBC RBC Hgb Hct MCV MCH MCHC RDW Plt Count Lymph % (Auto) [place] % (Auto) Lymph # Seg Neutrophils % Seg Neuts % (Manual) Lymphocytes % (Manual) Nucleated RBC % Seg Neutrophils # Seg Neutrophils # Man Lymphocytes # (Manual) Monocytes # (Manual) PT INR APTT D-Dimer POC ABG pH ABG pH POC ABG pCO2 POC ABG pO2 ABG pO2 ABG HCO3 ABG O2 Saturation ABG Base Excess ABG Hemoglobin VBG pH Oxyhemoglobin Sodium Potassium Chloride Carbon Dioxide BUN Creatinine Glucose POC Glucose 149 H 334 H 344 H Hemoglobin A1c Lactic Acid Calcium Phosphorus Magnesium Iron TIBC Direct Bilirubin AST ALT Alkaline Phosphatase Total Creatine Kinase CK-MB (CK-2) C-Reactive Protein Total Protein Albumin Vitamin B12 Urine WBC (Auto) Salicylates Acetaminophen Miscellaneous Test Crossmatch 04/18/19 04/18/19 04/18/19 17:43 18:14 23:35 WBC RBC Hgb Hct MCV MCH MCHC RDW Plt Count Lymph % (Auto) [place] % (Auto) Lymph # Seg Neutrophils % Seg Neuts % (Manual) Lymphocytes % (Manual) Nucleated RBC % Seg Neutrophils # Seg Neutrophils # Man Lymphocytes # (Manual) Monocytes # (Manual) PT INR APTT D-Dimer POC ABG pH ABG pH POC ABG pCO2 49.2 H POC ABG pO2 ABG pO2 ABG HCO3 ABG O2 Saturation ABG Base Excess ABG Hemoglobin VBG pH Oxyhemoglobin Sodium Potassium Chloride Carbon Dioxide BUN Creatinine Glucose POC Glucose 289 H 312 H Hemoglobin A1c Lactic Acid Calcium Phosphorus Magnesium Iron TIBC Direct Bilirubin AST ALT Alkaline Phosphatase Total Creatine Kinase CK-MB (CK-2) C-Reactive Protein Total Protein Albumin Vitamin B12 Urine WBC (Auto) Salicylates Acetaminophen Miscellaneous Test Crossmatch 04/19/19 04/19/19 04/19/19 04:35 05:55 12:26 WBC RBC Hgb Hct MCV MCH MCHC RDW Plt Count Lymph % (Auto) [place] % (Auto) Lymph # Seg Neutrophils % Seg Neuts % (Manual) Lymphocytes % (Manual) Nucleated RBC % Seg Neutrophils # Seg Neutrophils # Man Lymphocytes # (Manual) Monocytes # (Manual) PT INR APTT D-Dimer POC ABG pH 7.565 H ABG pH POC ABG pCO2 POC ABG pO2 ABG pO2 ABG HCO3 ABG O2 Saturation ABG Base Excess ABG Hemoglobin VBG pH Oxyhemoglobin Sodium Potassium Chloride Carbon Dioxide BUN Creatinine Glucose POC Glucose 172 H 271 H Hemoglobin A1c Lactic Acid Calcium Phosphorus Magnesium Iron TIBC Direct Bilirubin AST ALT Alkaline Phosphatase Total Creatine Kinase CK-MB (CK-2) C-Reactive Protein Total Protein Albumin Vitamin B12 Urine WBC (Auto) Salicylates Acetaminophen Miscellaneous Test Crossmatch 04/19/19 04/19/19 04/19/19 17:54 21:10 23:35 WBC RBC Hgb Hct MCV MCH MCHC RDW Plt Count Lymph % (Auto) [place] % (Auto) Lymph # Seg Neutrophils % Seg Neuts % (Manual) Lymphocytes % (Manual) Nucleated RBC % Seg Neutrophils # Seg Neutrophils # Man Lymphocytes # (Manual) Monocytes # (Manual) PT INR APTT D-Dimer POC ABG pH ABG pH POC ABG pCO2 POC ABG pO2 ABG pO2 ABG HCO3 ABG O2 Saturation ABG Base Excess ABG Hemoglobin VBG pH Oxyhemoglobin Sodium Potassium Chloride Carbon Dioxide BUN Creatinine Glucose POC Glucose 229 H 189 H 131 H Hemoglobin A1c Lactic Acid Calcium Phosphorus Magnesium Iron TIBC Direct Bilirubin AST ALT Alkaline Phosphatase Total Creatine Kinase CK-MB (CK-2) C-Reactive Protein Total Protein Albumin Vitamin B12 Urine WBC (Auto) Salicylates Acetaminophen Miscellaneous Test Crossmatch 04/20/19 04/20/19 04/20/19 05:42 11:58 17:32 WBC RBC Hgb Hct MCV MCH MCHC RDW Plt Count Lymph % (Auto) [place] % (Auto) Lymph # Seg Neutrophils % Seg Neuts % (Manual) Lymphocytes % (Manual) Nucleated RBC % Seg Neutrophils # Seg Neutrophils # Man Lymphocytes # (Manual) Monocytes # (Manual) PT INR APTT D-Dimer POC ABG pH ABG pH POC ABG pCO2 POC ABG pO2 ABG pO2 ABG HCO3 ABG O2 Saturation ABG Base Excess ABG Hemoglobin VBG pH Oxyhemoglobin Sodium Potassium Chloride Carbon Dioxide BUN Creatinine Glucose POC Glucose 289 H 265 H 232 H Hemoglobin A1c Lactic Acid Calcium Phosphorus Magnesium Iron TIBC Direct Bilirubin AST ALT Alkaline Phosphatase Total Creatine Kinase CK-MB (CK-2) C-Reactive Protein Total Protein Albumin Vitamin B12 Urine WBC (Auto) Salicylates Acetaminophen Miscellaneous Test Crossmatch 04/21/19 04/21/19 04/21/19 00:02 05:13 12:41 WBC RBC Hgb Hct MCV MCH MCHC RDW Plt Count Lymph % (Auto) [place] % (Auto) Lymph # Seg Neutrophils % Seg Neuts % (Manual) Lymphocytes % (Manual) Nucleated RBC % Seg Neutrophils # Seg Neutrophils # Man Lymphocytes # (Manual) Monocytes # (Manual) PT INR APTT D-Dimer POC ABG pH ABG pH POC ABG pCO2 POC ABG pO2 ABG pO2 ABG HCO3 ABG O2 Saturation ABG Base Excess ABG Hemoglobin VBG pH Oxyhemoglobin Sodium Potassium Chloride Carbon Dioxide BUN Creatinine Glucose POC Glucose 126 H 233 H 205 H Hemoglobin A1c Lactic Acid Calcium Phosphorus Magnesium Iron TIBC Direct Bilirubin AST ALT Alkaline Phosphatase Total Creatine Kinase CK-MB (CK-2) C-Reactive Protein Total Protein Albumin Vitamin B12 Urine WBC (Auto) Salicylates Acetaminophen Miscellaneous Test Crossmatch 04/21/19 04/22/19 04/22/19 23:42 03:57 03:57 WBC 11.5 H RBC 3.44 L Hgb Hct MCV MCH MCHC RDW 16.3 H Plt Count 510 H Lymph % (Auto) [place] % (Auto) Lymph # Seg Neutrophils % Seg Neuts % (Manual) Lymphocytes % (Manual) Nucleated RBC % Seg Neutrophils # Seg Neutrophils # Man Lymphocytes # (Manual) Monocytes # (Manual) PT INR APTT D-Dimer POC ABG pH ABG pH POC ABG pCO2 POC ABG pO2 ABG pO2 ABG HCO3 ABG O2 Saturation ABG Base Excess ABG Hemoglobin VBG pH Oxyhemoglobin Sodium Potassium Chloride 96.3 L Carbon Dioxide BUN Creatinine 0.2 L Glucose 333 H POC Glucose 149 H Hemoglobin A1c Lactic Acid Calcium Phosphorus Magnesium Iron TIBC Direct Bilirubin AST 60 H ALT Alkaline Phosphatase 204 H Total Creatine Kinase CK-MB (CK-2) C-Reactive Protein Total Protein Albumin 3.1 L Vitamin B12 Urine WBC (Auto) Salicylates Acetaminophen Miscellaneous Test Crossmatch 04/22/19 04/22/19 04/22/19 05:18 12:03 18:17 WBC RBC Hgb Hct MCV MCH MCHC RDW Plt Count Lymph % (Auto) [place] % (Auto) Lymph # Seg Neutrophils % Seg Neuts % (Manual) Lymphocytes % (Manual) Nucleated RBC % Seg Neutrophils # Seg Neutrophils # Man Lymphocytes # (Manual) Monocytes # (Manual) PT INR APTT D-Dimer POC ABG pH ABG pH POC ABG pCO2 POC ABG pO2 ABG pO2 ABG HCO3 ABG O2 Saturation ABG Base Excess ABG Hemoglobin VBG pH Oxyhemoglobin Sodium Potassium Chloride Carbon Dioxide BUN Creatinine Glucose POC Glucose 345 H 308 H 169 H Hemoglobin A1c Lactic Acid Calcium Phosphorus Magnesium Iron TIBC Direct Bilirubin AST ALT Alkaline Phosphatase Total Creatine Kinase CK-MB (CK-2) C-Reactive Protein Total Protein Albumin Vitamin B12 Urine WBC (Auto) Salicylates Acetaminophen Miscellaneous Test Crossmatch 04/23/19 04/23/19 04/23/19 00:14 05:43 11:15 WBC RBC Hgb Hct MCV MCH MCHC RDW Plt Count Lymph % (Auto) [place] % (Auto) Lymph # Seg Neutrophils % Seg Neuts % (Manual) Lymphocytes % (Manual) Nucleated RBC % Seg Neutrophils # Seg Neutrophils # Man Lymphocytes # (Manual) Monocytes # (Manual) PT INR APTT D-Dimer POC ABG pH ABG pH POC ABG pCO2 POC ABG pO2 ABG pO2 ABG HCO3 ABG O2 Saturation ABG Base Excess ABG Hemoglobin VBG pH Oxyhemoglobin Sodium Potassium Chloride Carbon Dioxide BUN Creatinine Glucose POC Glucose 192 H 260 H 186 H Hemoglobin A1c Lactic Acid Calcium Phosphorus Magnesium Iron TIBC Direct Bilirubin AST ALT Alkaline Phosphatase Total Creatine Kinase CK-MB (CK-2) C-Reactive Protein Total Protein Albumin Vitamin B12 Urine WBC (Auto) Salicylates Acetaminophen Miscellaneous Test Crossmatch 04/23/19 04/23/19 04/24/19 15:44 21:30 00:09 WBC RBC Hgb Hct MCV MCH MCHC RDW Plt Count Lymph % (Auto) [place] % (Auto) Lymph # Seg Neutrophils % Seg Neuts % (Manual) Lymphocytes % (Manual) Nucleated RBC % Seg Neutrophils # Seg Neutrophils # Man Lymphocytes # (Manual) Monocytes # (Manual) PT INR APTT D-Dimer POC ABG pH ABG pH POC ABG pCO2 POC ABG pO2 ABG pO2 ABG HCO3 ABG O2 Saturation ABG Base Excess ABG Hemoglobin VBG pH Oxyhemoglobin Sodium Potassium Chloride Carbon Dioxide BUN Creatinine Glucose POC Glucose 164 H 407 H 280 H Hemoglobin A1c Lactic Acid Calcium Phosphorus Magnesium Iron TIBC Direct Bilirubin AST ALT Alkaline Phosphatase Total Creatine Kinase CK-MB (CK-2) C-Reactive Protein Total Protein Albumin Vitamin B12 Urine WBC (Auto) Salicylates Acetaminophen Miscellaneous Test Crossmatch 04/24/19 04/24/19 04/24/19 06:01 06:39 14:51 WBC RBC Hgb Hct MCV MCH MCHC RDW Plt Count Lymph % (Auto) [place] % (Auto) Lymph # Seg Neutrophils % Seg Neuts % (Manual) Lymphocytes % (Manual) Nucleated RBC % Seg Neutrophils # Seg Neutrophils # Man Lymphocytes # (Manual) Monocytes # (Manual) PT INR APTT D-Dimer POC ABG pH ABG pH POC ABG pCO2 POC ABG pO2 ABG pO2 ABG HCO3 ABG O2 Saturation ABG Base Excess ABG Hemoglobin VBG pH Oxyhemoglobin Sodium Potassium Chloride Carbon Dioxide BUN Creatinine Glucose POC Glucose 65 L 125 H 207 H Hemoglobin A1c Lactic Acid Calcium Phosphorus Magnesium Iron TIBC Direct Bilirubin AST ALT Alkaline Phosphatase Total Creatine Kinase CK-MB (CK-2) C-Reactive Protein Total Protein Albumin Vitamin B12 Urine WBC (Auto) Salicylates Acetaminophen Miscellaneous Test Crossmatch 04/24/19 04/25/19 04/25/19 18:03 01:46 05:56 WBC RBC Hgb Hct MCV MCH MCHC RDW Plt Count Lymph % (Auto) [place] % (Auto) Lymph # Seg Neutrophils % Seg Neuts % (Manual) Lymphocytes % (Manual) Nucleated RBC % Seg Neutrophils # Seg Neutrophils # Man Lymphocytes # (Manual) Monocytes # (Manual) PT INR APTT D-Dimer POC ABG pH ABG pH POC ABG pCO2 POC ABG pO2 ABG pO2 ABG HCO3 ABG O2 Saturation ABG Base Excess ABG Hemoglobin VBG pH Oxyhemoglobin Sodium Potassium Chloride Carbon Dioxide BUN Creatinine Glucose POC Glucose 140 H 125 H 208 H Hemoglobin A1c Lactic Acid Calcium Phosphorus Magnesium Iron TIBC Direct Bilirubin AST ALT Alkaline Phosphatase Total Creatine Kinase CK-MB (CK-2) C-Reactive Protein Total Protein Albumin Vitamin B12 Urine WBC (Auto) Salicylates Acetaminophen Miscellaneous Test Crossmatch 04/25/19 04/25/19 04/25/19 08:12 13:06 18:04 WBC RBC Hgb Hct MCV MCH MCHC RDW Plt Count Lymph % (Auto) [place] % (Auto) Lymph # Seg Neutrophils % Seg Neuts % (Manual) Lymphocytes % (Manual) Nucleated RBC % Seg Neutrophils # Seg Neutrophils # Man Lymphocytes # (Manual) Monocytes # (Manual) PT INR APTT D-Dimer POC ABG pH ABG pH POC ABG pCO2 POC ABG pO2 ABG pO2 ABG HCO3 ABG O2 Saturation ABG Base Excess ABG Hemoglobin VBG pH Oxyhemoglobin Sodium Potassium Chloride Carbon Dioxide BUN Creatinine Glucose POC Glucose 127 H 147 H 340 H Hemoglobin A1c Lactic Acid Calcium Phosphorus Magnesium Iron TIBC Direct Bilirubin AST ALT Alkaline Phosphatase Total Creatine Kinase CK-MB (CK-2) C-Reactive Protein Total Protein Albumin Vitamin B12 Urine WBC (Auto) Salicylates Acetaminophen Miscellaneous Test Crossmatch 04/26/19 04/26/19 04/26/19 00:16 05:15 11:26 WBC RBC Hgb Hct MCV MCH MCHC RDW Plt Count Lymph % (Auto) [place] % (Auto) Lymph # Seg Neutrophils % Seg Neuts % (Manual) Lymphocytes % (Manual) Nucleated RBC % Seg Neutrophils # Seg Neutrophils # Man Lymphocytes # (Manual) Monocytes # (Manual) PT INR APTT D-Dimer POC ABG pH ABG pH POC ABG pCO2 POC ABG pO2 ABG pO2 ABG HCO3 ABG O2 Saturation ABG Base Excess ABG Hemoglobin VBG pH Oxyhemoglobin Sodium Potassium Chloride Carbon Dioxide BUN Creatinine Glucose POC Glucose 137 H 136 H 365 H Hemoglobin A1c Lactic Acid Calcium Phosphorus Magnesium Iron TIBC Direct Bilirubin AST ALT Alkaline Phosphatase Total Creatine Kinase CK-MB (CK-2) C-Reactive Protein Total Protein Albumin Vitamin B12 Urine WBC (Auto) Salicylates Acetaminophen Miscellaneous Test Crossmatch 04/26/19 04/26/19 04/27/19 18:03 21:30 06:14 WBC RBC Hgb Hct MCV MCH MCHC RDW Plt Count Lymph % (Auto) [place] % (Auto) Lymph # Seg Neutrophils % Seg Neuts % (Manual) Lymphocytes % (Manual) Nucleated RBC % Seg Neutrophils # Seg Neutrophils # Man Lymphocytes # (Manual) Monocytes # (Manual) PT INR APTT D-Dimer POC ABG pH ABG pH POC ABG pCO2 POC ABG pO2 ABG pO2 ABG HCO3 ABG O2 Saturation ABG Base Excess ABG Hemoglobin VBG pH Oxyhemoglobin Sodium Potassium Chloride Carbon Dioxide BUN Creatinine Glucose POC Glucose 124 H 231 H 199 H Hemoglobin A1c Lactic Acid Calcium Phosphorus Magnesium Iron TIBC Direct Bilirubin AST ALT Alkaline Phosphatase Total Creatine Kinase CK-MB (CK-2) C-Reactive Protein Total Protein Albumin Vitamin B12 Urine WBC (Auto) Salicylates Acetaminophen Miscellaneous Test Crossmatch 04/27/19 04/27/19 04/28/19 16:39 22:22 05:55 WBC RBC Hgb Hct MCV MCH MCHC RDW Plt Count Lymph % (Auto) [place] % (Auto) Lymph # Seg Neutrophils % Seg Neuts % (Manual) Lymphocytes % (Manual) Nucleated RBC % Seg Neutrophils # Seg Neutrophils # Man Lymphocytes # (Manual) Monocytes # (Manual) PT INR APTT D-Dimer POC ABG pH ABG pH POC ABG pCO2 POC ABG pO2 ABG pO2 ABG HCO3 ABG O2 Saturation ABG Base Excess ABG Hemoglobin VBG pH Oxyhemoglobin Sodium Potassium Chloride Carbon Dioxide BUN Creatinine Glucose POC Glucose 171 H 183 H 207 H Hemoglobin A1c Lactic Acid Calcium Phosphorus Magnesium Iron TIBC Direct Bilirubin AST ALT Alkaline Phosphatase Total Creatine Kinase CK-MB (CK-2) C-Reactive Protein Total Protein Albumin Vitamin B12 Urine WBC (Auto) Salicylates Acetaminophen Miscellaneous Test Crossmatch 04/28/19 04/28/19 04/29/19 12:30 17:07 00:03 WBC RBC Hgb Hct MCV MCH MCHC RDW Plt Count Lymph % (Auto) [place] % (Auto) Lymph # Seg Neutrophils % Seg Neuts % (Manual) Lymphocytes % (Manual) Nucleated RBC % Seg Neutrophils # Seg Neutrophils # Man Lymphocytes # (Manual) Monocytes # (Manual) PT INR APTT D-Dimer POC ABG pH ABG pH POC ABG pCO2 POC ABG pO2 ABG pO2 ABG HCO3 ABG O2 Saturation ABG Base Excess ABG Hemoglobin VBG pH Oxyhemoglobin Sodium Potassium Chloride Carbon Dioxide BUN Creatinine Glucose POC Glucose 199 H 233 H 217 H Hemoglobin A1c Lactic Acid Calcium Phosphorus Magnesium Iron TIBC Direct Bilirubin AST ALT Alkaline Phosphatase Total Creatine Kinase CK-MB (CK-2) C-Reactive Protein Total Protein Albumin Vitamin B12 Urine WBC (Auto) Salicylates Acetaminophen Miscellaneous Test Crossmatch 04/29/19 04/29/19 04/29/19 05:51 09:43 09:43 WBC RBC 3.36 L Hgb Hct MCV MCH MCHC RDW 16.3 H Plt Count Lymph % (Auto) 11.1 L [place] % (Auto) Lymph # Seg Neutrophils % 81.4 H Seg Neuts % (Manual) Lymphocytes % (Manual) Nucleated RBC % Seg Neutrophils # 9.0 H Seg Neutrophils # Man Lymphocytes # (Manual) Monocytes # (Manual) PT INR APTT D-Dimer POC ABG pH ABG pH POC ABG pCO2 POC ABG pO2 ABG pO2 ABG HCO3 ABG O2 Saturation ABG Base Excess ABG Hemoglobin VBG pH Oxyhemoglobin Sodium Potassium Chloride Carbon Dioxide BUN 21 H Creatinine 0.3 L Glucose 316 H POC Glucose 149 H Hemoglobin A1c Lactic Acid Calcium Phosphorus Magnesium Iron TIBC Direct Bilirubin AST ALT Alkaline Phosphatase Total Creatine Kinase CK-MB (CK-2) C-Reactive Protein Total Protein Albumin Vitamin B12 Urine WBC (Auto) Salicylates Acetaminophen Miscellaneous Test Crossmatch 04/29/19 04/29/19 04/29/19 12:28 18:02 23:49 WBC RBC Hgb Hct MCV MCH MCHC RDW Plt Count Lymph % (Auto) [place] % (Auto) Lymph # Seg Neutrophils % Seg Neuts % (Manual) Lymphocytes % (Manual) Nucleated RBC % Seg Neutrophils # Seg Neutrophils # Man Lymphocytes # (Manual) Monocytes # (Manual) PT INR APTT D-Dimer POC ABG pH ABG pH POC ABG pCO2 POC ABG pO2 ABG pO2 ABG HCO3 ABG O2 Saturation ABG Base Excess ABG Hemoglobin VBG pH Oxyhemoglobin Sodium Potassium Chloride Carbon Dioxide BUN Creatinine Glucose POC Glucose 368 H 185 H 137 H Hemoglobin A1c Lactic Acid Calcium Phosphorus Magnesium Iron TIBC Direct Bilirubin AST ALT Alkaline Phosphatase Total Creatine Kinase CK-MB (CK-2) C-Reactive Protein Total Protein Albumin Vitamin B12 Urine WBC (Auto) Salicylates Acetaminophen Miscellaneous Test Crossmatch 04/30/19 04/30/19 04/30/19 05:56 09:08 09:08 WBC RBC 3.48 L Hgb Hct MCV MCH MCHC RDW 15.9 H Plt Count Lymph % (Auto) [place] % (Auto) Lymph # Seg Neutrophils % 73.7 H Seg Neuts % (Manual) Lymphocytes % (Manual) Nucleated RBC % Seg Neutrophils # Seg Neutrophils # Man Lymphocytes # (Manual) Monocytes # (Manual) PT INR APTT D-Dimer POC ABG pH ABG pH POC ABG pCO2 POC ABG pO2 ABG pO2 ABG HCO3 ABG O2 Saturation ABG Base Excess ABG Hemoglobin VBG pH Oxyhemoglobin Sodium Potassium Chloride Carbon Dioxide BUN 25 H Creatinine 0.3 L Glucose 290 H POC Glucose 318 H Hemoglobin A1c Lactic Acid Calcium Phosphorus Magnesium Iron TIBC Direct Bilirubin AST ALT Alkaline Phosphatase Total Creatine Kinase CK-MB (CK-2) C-Reactive Protein Total Protein Albumin Vitamin B12 Urine WBC (Auto) Salicylates Acetaminophen Miscellaneous Test Crossmatch 04/30/19 04/30/19 04/30/19 11:32 17:19 21:36 WBC RBC Hgb Hct MCV MCH MCHC RDW Plt Count Lymph % (Auto) [place] % (Auto) Lymph # Seg Neutrophils % Seg Neuts % (Manual) Lymphocytes % (Manual) Nucleated RBC % Seg Neutrophils # Seg Neutrophils # Man Lymphocytes # (Manual) Monocytes # (Manual) PT INR APTT D-Dimer POC ABG pH ABG pH POC ABG pCO2 POC ABG pO2 ABG pO2 ABG HCO3 ABG O2 Saturation ABG Base Excess ABG Hemoglobin VBG pH Oxyhemoglobin Sodium Potassium Chloride Carbon Dioxide BUN Creatinine Glucose POC Glucose 225 H 110 H 371 H Hemoglobin A1c Lactic Acid Calcium Phosphorus Magnesium Iron TIBC Direct Bilirubin AST ALT Alkaline Phosphatase Total Creatine Kinase CK-MB (CK-2) C-Reactive Protein Total Protein Albumin Vitamin B12 Urine WBC (Auto) Salicylates Acetaminophen Miscellaneous Test Crossmatch 04/30/19 05/01/19 05/01/19 Unknown 05:29 11:44 WBC RBC Hgb Hct MCV MCH MCHC RDW Plt Count Lymph % (Auto) [place] % (Auto) Lymph # Seg Neutrophils % Seg Neuts % (Manual) Lymphocytes % (Manual) Nucleated RBC % Seg Neutrophils # Seg Neutrophils # Man Lymphocytes # (Manual) Monocytes # (Manual) PT INR APTT D-Dimer POC ABG pH ABG pH POC ABG pCO2 POC ABG pO2 ABG pO2 ABG HCO3 ABG O2 Saturation ABG Base Excess ABG Hemoglobin VBG pH Oxyhemoglobin Sodium Potassium Chloride Carbon Dioxide BUN Creatinine Glucose POC Glucose 386 H 227 H Hemoglobin A1c Lactic Acid Calcium Phosphorus Magnesium Iron TIBC Direct Bilirubin AST ALT Alkaline Phosphatase Total Creatine Kinase CK-MB (CK-2) C-Reactive Protein Total Protein Albumin Vitamin B12 Urine WBC (Auto) 17.0 H Salicylates Acetaminophen Miscellaneous Test Crossmatch 05/02/19 05/02/19 05/03/19 05:51 11:21 00:25 WBC RBC Hgb Hct MCV MCH MCHC RDW Plt Count Lymph % (Auto) [place] % (Auto) Lymph # Seg Neutrophils % Seg Neuts % (Manual) Lymphocytes % (Manual) Nucleated RBC % Seg Neutrophils # Seg Neutrophils # Man Lymphocytes # (Manual) Monocytes # (Manual) PT INR APTT D-Dimer POC ABG pH ABG pH POC ABG pCO2 POC ABG pO2 ABG pO2 ABG HCO3 ABG O2 Saturation ABG Base Excess ABG Hemoglobin VBG pH Oxyhemoglobin Sodium Potassium Chloride Carbon Dioxide BUN Creatinine Glucose POC Glucose 280 H 191 H 262 H Hemoglobin A1c Lactic Acid Calcium Phosphorus Magnesium Iron TIBC Direct Bilirubin AST ALT Alkaline Phosphatase Total Creatine Kinase CK-MB (CK-2) C-Reactive Protein Total Protein Albumin Vitamin B12 Urine WBC (Auto) Salicylates Acetaminophen Miscellaneous Test Crossmatch 05/03/19 05/03/19 05/03/19 04:57 04:57 06:20 WBC RBC 3.45 L Hgb Hct MCV MCH MCHC RDW 15.5 H Plt Count Lymph % (Auto) [place] % (Auto) 7.6 H Lymph # Seg Neutrophils % Seg Neuts % (Manual) Lymphocytes % (Manual) Nucleated RBC % Seg Neutrophils # Seg Neutrophils # Man Lymphocytes # (Manual) Monocytes # (Manual) PT INR APTT D-Dimer POC ABG pH ABG pH POC ABG pCO2 POC ABG pO2 ABG pO2 ABG HCO3 ABG O2 Saturation ABG Base Excess ABG Hemoglobin VBG pH Oxyhemoglobin Sodium Potassium Chloride Carbon Dioxide BUN 23 H Creatinine 0.2 L Glucose 101 H POC Glucose 131 H Hemoglobin A1c Lactic Acid Calcium Phosphorus Magnesium Iron TIBC Direct Bilirubin AST ALT Alkaline Phosphatase Total Creatine Kinase CK-MB (CK-2) C-Reactive Protein Total Protein Albumin Vitamin B12 Urine WBC (Auto) Salicylates Acetaminophen Miscellaneous Test Crossmatch 05/03/19 05/04/19 05/04/19 23:58 12:05 16:56 WBC RBC Hgb Hct MCV MCH MCHC RDW Plt Count Lymph % (Auto) [place] % (Auto) Lymph # Seg Neutrophils % Seg Neuts % (Manual) Lymphocytes % (Manual) Nucleated RBC % Seg Neutrophils # Seg Neutrophils # Man Lymphocytes # (Manual) Monocytes # (Manual) PT INR APTT D-Dimer POC ABG pH ABG pH POC ABG pCO2 POC ABG pO2 ABG pO2 ABG HCO3 ABG O2 Saturation ABG Base Excess ABG Hemoglobin VBG pH Oxyhemoglobin Sodium Potassium Chloride Carbon Dioxide BUN Creatinine Glucose POC Glucose 160 H 128 H 116 H Hemoglobin A1c Lactic Acid Calcium Phosphorus Magnesium Iron TIBC Direct Bilirubin AST ALT Alkaline Phosphatase Total Creatine Kinase CK-MB (CK-2) C-Reactive Protein Total Protein Albumin Vitamin B12 Urine WBC (Auto) Salicylates Acetaminophen Miscellaneous Test Crossmatch 05/04/19 05/05/19 05/05/19 23:31 03:24 11:43 WBC RBC Hgb Hct MCV MCH MCHC RDW Plt Count Lymph % (Auto) [place] % (Auto) Lymph # Seg Neutrophils % Seg Neuts % (Manual) Lymphocytes % (Manual) Nucleated RBC % Seg Neutrophils # Seg Neutrophils # Man Lymphocytes # (Manual) Monocytes # (Manual) PT INR APTT D-Dimer POC ABG pH ABG pH POC ABG pCO2 POC ABG pO2 ABG pO2 ABG HCO3 ABG O2 Saturation ABG Base Excess ABG Hemoglobin VBG pH Oxyhemoglobin Sodium Potassium Chloride Carbon Dioxide BUN Creatinine Glucose POC Glucose 204 H 194 H 202 H Hemoglobin A1c Lactic Acid Calcium Phosphorus Magnesium Iron TIBC Direct Bilirubin AST ALT Alkaline Phosphatase Total Creatine Kinase CK-MB (CK-2) C-Reactive Protein Total Protein Albumin Vitamin B12 Urine WBC (Auto) Salicylates Acetaminophen Miscellaneous Test Crossmatch 05/05/19 05/06/19 05/06/19 21:07 05:16 17:08 WBC RBC Hgb Hct MCV MCH MCHC RDW Plt Count Lymph % (Auto) [place] % (Auto) Lymph # Seg Neutrophils % Seg Neuts % (Manual) Lymphocytes % (Manual) Nucleated RBC % Seg Neutrophils # Seg Neutrophils # Man Lymphocytes # (Manual) Monocytes # (Manual) PT INR APTT D-Dimer POC ABG pH ABG pH POC ABG pCO2 POC ABG pO2 ABG pO2 ABG HCO3 ABG O2 Saturation ABG Base Excess ABG Hemoglobin VBG pH Oxyhemoglobin Sodium Potassium Chloride Carbon Dioxide BUN Creatinine Glucose POC Glucose 128 H 239 H 64 L Hemoglobin A1c Lactic Acid Calcium Phosphorus Magnesium Iron TIBC Direct Bilirubin AST ALT Alkaline Phosphatase Total Creatine Kinase CK-MB (CK-2) C-Reactive Protein Total Protein Albumin Vitamin B12 Urine WBC (Auto) Salicylates Acetaminophen Miscellaneous Test Crossmatch 05/07/19 05/07/19 05/07/19 05:12 08:00 12:13 WBC RBC Hgb Hct MCV MCH MCHC RDW Plt Count Lymph % (Auto) [place] % (Auto) Lymph # Seg Neutrophils % Seg Neuts % (Manual) Lymphocytes % (Manual) Nucleated RBC % Seg Neutrophils # Seg Neutrophils # Man Lymphocytes # (Manual) Monocytes # (Manual) PT INR APTT D-Dimer POC ABG pH ABG pH POC ABG pCO2 POC ABG pO2 ABG pO2 ABG HCO3 ABG O2 Saturation ABG Base Excess ABG Hemoglobin VBG pH Oxyhemoglobin Sodium Potassium Chloride Carbon Dioxide BUN Creatinine Glucose POC Glucose 315 H 193 H 129 H Hemoglobin A1c Lactic Acid Calcium Phosphorus Magnesium Iron TIBC Direct Bilirubin AST ALT Alkaline Phosphatase Total Creatine Kinase CK-MB (CK-2) C-Reactive Protein Total Protein Albumin Vitamin B12 Urine WBC (Auto) Salicylates Acetaminophen Miscellaneous Test Crossmatch 05/07/19 05/07/19 05/08/19 17:00 22:58 00:38 WBC RBC Hgb Hct MCV MCH MCHC RDW Plt Count Lymph % (Auto) [place] % (Auto) Lymph # Seg Neutrophils % Seg Neuts % (Manual) Lymphocytes % (Manual) Nucleated RBC % Seg Neutrophils # Seg Neutrophils # Man Lymphocytes # (Manual) Monocytes # (Manual) PT INR APTT D-Dimer POC ABG pH ABG pH POC ABG pCO2 POC ABG pO2 ABG pO2 ABG HCO3 ABG O2 Saturation ABG Base Excess ABG Hemoglobin VBG pH Oxyhemoglobin Sodium Potassium Chloride Carbon Dioxide BUN Creatinine Glucose POC Glucose 331 H 341 H 369 H Hemoglobin A1c Lactic Acid Calcium Phosphorus Magnesium Iron TIBC Direct Bilirubin AST ALT Alkaline Phosphatase Total Creatine Kinase CK-MB (CK-2) C-Reactive Protein Total Protein Albumin Vitamin B12 Urine WBC (Auto) Salicylates Acetaminophen Miscellaneous Test Crossmatch 05/08/19 05/08/19 05/08/19 06:06 07:58 12:38 WBC RBC Hgb Hct MCV MCH MCHC RDW Plt Count Lymph % (Auto) [place] % (Auto) Lymph # Seg Neutrophils % Seg Neuts % (Manual) Lymphocytes % (Manual) Nucleated RBC % Seg Neutrophils # Seg Neutrophils # Man Lymphocytes # (Manual) Monocytes # (Manual) PT INR APTT D-Dimer POC ABG pH ABG pH POC ABG pCO2 POC ABG pO2 ABG pO2 ABG HCO3 ABG O2 Saturation ABG Base Excess ABG Hemoglobin VBG pH Oxyhemoglobin Sodium Potassium Chloride Carbon Dioxide BUN Creatinine Glucose POC Glucose 191 H 165 H 296 H Hemoglobin A1c Lactic Acid Calcium Phosphorus Magnesium Iron TIBC Direct Bilirubin AST ALT Alkaline Phosphatase Total Creatine Kinase CK-MB (CK-2) C-Reactive Protein Total Protein Albumin Vitamin B12 Urine WBC (Auto) Salicylates Acetaminophen Miscellaneous Test Crossmatch 05/08/19 05/08/19 05/09/19 18:02 21:56 00:18 WBC RBC Hgb Hct MCV MCH MCHC RDW Plt Count Lymph % (Auto) [place] % (Auto) Lymph # Seg Neutrophils % Seg Neuts % (Manual) Lymphocytes % (Manual) Nucleated RBC % Seg Neutrophils # Seg Neutrophils # Man Lymphocytes # (Manual) Monocytes # (Manual) PT INR APTT D-Dimer POC ABG pH ABG pH POC ABG pCO2 POC ABG pO2 ABG pO2 ABG HCO3 ABG O2 Saturation ABG Base Excess ABG Hemoglobin VBG pH Oxyhemoglobin Sodium Potassium Chloride Carbon Dioxide BUN Creatinine Glucose POC Glucose 247 H 212 H 182 H Hemoglobin A1c Lactic Acid Calcium Phosphorus Magnesium Iron TIBC Direct Bilirubin AST ALT Alkaline Phosphatase Total Creatine Kinase CK-MB (CK-2) C-Reactive Protein Total Protein Albumin Vitamin B12 Urine WBC (Auto) Salicylates Acetaminophen Miscellaneous Test Crossmatch 05/09/19 05/09/19 05/09/19 04:30 04:30 04:30 WBC RBC Hgb Hct MCV MCH MCHC RDW Plt Count Lymph % (Auto) [place] % (Auto) 10.1 H Lymph # Seg Neutrophils % Seg Neuts % (Manual) Lymphocytes % (Manual) Nucleated RBC % Seg Neutrophils # Seg Neutrophils # Man Lymphocytes # (Manual) Monocytes # (Manual) PT INR APTT D-Dimer POC ABG pH ABG pH POC ABG pCO2 POC ABG pO2 ABG pO2 ABG HCO3 ABG O2 Saturation ABG Base Excess ABG Hemoglobin VBG pH Oxyhemoglobin Sodium Potassium Chloride Carbon Dioxide BUN 19 H Creatinine 0.2 L Glucose 108 H POC Glucose Hemoglobin A1c 6.3 H Lactic Acid Calcium Phosphorus Magnesium Iron TIBC Direct Bilirubin AST ALT Alkaline Phosphatase Total Creatine Kinase CK-MB (CK-2) C-Reactive Protein Total Protein Albumin Vitamin B12 Urine WBC (Auto) Salicylates Acetaminophen Miscellaneous Test Crossmatch 05/09/19 05/09/19 05/09/19 05:27 11:52 17:43 WBC RBC Hgb Hct MCV MCH MCHC RDW Plt Count Lymph % (Auto) [place] % (Auto) Lymph # Seg Neutrophils % Seg Neuts % (Manual) Lymphocytes % (Manual) Nucleated RBC % Seg Neutrophils # Seg Neutrophils # Man Lymphocytes # (Manual) Monocytes # (Manual) PT INR APTT D-Dimer POC ABG pH ABG pH POC ABG pCO2 POC ABG pO2 ABG pO2 ABG HCO3 ABG O2 Saturation ABG Base Excess ABG Hemoglobin VBG pH Oxyhemoglobin Sodium Potassium Chloride Carbon Dioxide BUN Creatinine Glucose POC Glucose 115 H 171 H 113 H Hemoglobin A1c Lactic Acid Calcium Phosphorus Magnesium Iron TIBC Direct Bilirubin AST ALT Alkaline Phosphatase Total Creatine Kinase CK-MB (CK-2) C-Reactive Protein Total Protein Albumin Vitamin B12 Urine WBC (Auto) Salicylates Acetaminophen Miscellaneous Test Crossmatch 05/09/19 05/10/19 05/10/19 23:53 06:30 11:39 WBC RBC Hgb Hct MCV MCH MCHC RDW Plt Count Lymph % (Auto) [place] % (Auto) Lymph # Seg Neutrophils % Seg Neuts % (Manual) Lymphocytes % (Manual) Nucleated RBC % Seg Neutrophils # Seg Neutrophils # Man Lymphocytes # (Manual) Monocytes # (Manual) PT INR APTT D-Dimer POC ABG pH ABG pH POC ABG pCO2 POC ABG pO2 ABG pO2 ABG HCO3 ABG O2 Saturation ABG Base Excess ABG Hemoglobin VBG pH Oxyhemoglobin Sodium Potassium Chloride Carbon Dioxide BUN Creatinine Glucose POC Glucose 274 H 160 H 150 H Hemoglobin A1c Lactic Acid Calcium Phosphorus Magnesium Iron TIBC Direct Bilirubin AST ALT Alkaline Phosphatase Total Creatine Kinase CK-MB (CK-2) C-Reactive Protein Total Protein Albumin Vitamin B12 Urine WBC (Auto) Salicylates Acetaminophen Miscellaneous Test Crossmatch 05/10/19 05/11/19 05/11/19 16:45 00:25 06:40 WBC RBC Hgb Hct MCV MCH MCHC RDW Plt Count Lymph % (Auto) [place] % (Auto) Lymph # Seg Neutrophils % Seg Neuts % (Manual) Lymphocytes % (Manual) Nucleated RBC % Seg Neutrophils # Seg Neutrophils # Man Lymphocytes # (Manual) Monocytes # (Manual) PT INR APTT D-Dimer POC ABG pH ABG pH POC ABG pCO2 POC ABG pO2 ABG pO2 ABG HCO3 ABG O2 Saturation ABG Base Excess ABG Hemoglobin VBG pH Oxyhemoglobin Sodium Potassium Chloride Carbon Dioxide BUN Creatinine Glucose POC Glucose 176 H 114 H 63 L Hemoglobin A1c Lactic Acid Calcium Phosphorus Magnesium Iron TIBC Direct Bilirubin AST ALT Alkaline Phosphatase Total Creatine Kinase CK-MB (CK-2) C-Reactive Protein Total Protein Albumin Vitamin B12 Urine WBC (Auto) Salicylates Acetaminophen Miscellaneous Test Crossmatch 05/11/19 05/11/19 05/11/19 12:18 17:00 23:46 WBC RBC Hgb Hct MCV MCH MCHC RDW Plt Count Lymph % (Auto) [place] % (Auto) Lymph # Seg Neutrophils % Seg Neuts % (Manual) Lymphocytes % (Manual) Nucleated RBC % Seg Neutrophils # Seg Neutrophils # Man Lymphocytes # (Manual) Monocytes # (Manual) PT INR APTT D-Dimer POC ABG pH ABG pH POC ABG pCO2 POC ABG pO2 ABG pO2 ABG HCO3 ABG O2 Saturation ABG Base Excess ABG Hemoglobin VBG pH Oxyhemoglobin Sodium Potassium Chloride Carbon Dioxide BUN Creatinine Glucose POC Glucose 142 H 192 H 286 H Hemoglobin A1c Lactic Acid Calcium Phosphorus Magnesium Iron TIBC Direct Bilirubin AST ALT Alkaline Phosphatase Total Creatine Kinase CK-MB (CK-2) C-Reactive Protein Total Protein Albumin Vitamin B12 Urine WBC (Auto) Salicylates Acetaminophen Miscellaneous Test Crossmatch 05/12/19 05:05 WBC RBC Hgb Hct MCV MCH MCHC RDW Plt Count Lymph % (Auto) [place] % (Auto) Lymph # Seg Neutrophils % Seg Neuts % (Manual) Lymphocytes % (Manual) Nucleated RBC % Seg Neutrophils # Seg Neutrophils # Man Lymphocytes # (Manual) Monocytes # (Manual) PT INR APTT D-Dimer POC ABG pH ABG pH POC ABG pCO2 POC ABG pO2 ABG pO2 ABG HCO3 ABG O2 Saturation ABG Base Excess ABG Hemoglobin VBG pH Oxyhemoglobin Sodium Potassium Chloride Carbon Dioxide BUN Creatinine Glucose POC Glucose 174 H Hemoglobin A1c Lactic Acid Calcium Phosphorus Magnesium Iron TIBC Direct Bilirubin AST ALT Alkaline Phosphatase Total Creatine Kinase CK-MB (CK-2) C-Reactive Protein Total Protein Albumin Vitamin B12 Urine WBC (Auto) Salicylates Acetaminophen Miscellaneous Test Crossmatch Allied health notes reviewed: nursing
--- NOTE | 2019-05-12 11:47 | Progress Note ---
Subjective Date of service: 05/12/19 Principal diagnosis: Ac Hypoxemic Resp Failure; DKA; Severe sepsis with shock; ANGELICA Interval history: do not see any basic improvement in the patient's condition she is in alterd state semi-coma will not follow commands to my stimulation prognosis is not goo d Objective - Vital Sign Vital Signs - 12hr 05/12/19 05/12/19 05/12/19 04:44 04:45 05:00 Temperature 97.5 F L Pulse Rate 113 H Respiratory 16 Rate Blood Pressure 124/91 O2 Sat by Pulse 98 97 Oximetry O2 Sat by Pulse 97 Oximetry [ Assessment] 05/12/19 05/12/19 09:05 09:32 Temperature Pulse Rate 122 H Respiratory Rate Blood Pressure 123/86 O2 Sat by Pulse Oximetry O2 Sat by Pulse 96 Oximetry [ Assessment] - Laboratory Findings CBC and BMP: 05/09/19 04:30 05/09/19 04:30 Abnormal Lab Findings: Abnormal Labs 03/29/19 03/29/19 03/29/19 19:11 19:20 19:20 WBC 26.7 H RBC 2.52 L Hgb 8.1 L Hct MCV 148 H MCH MCHC 22 L RDW 18.5 H Plt Count Lymph % (Auto) [place] % (Auto) Lymph # Seg Neutrophils % Seg Neuts % (Manual) 82.0 H Lymphocytes % (Manual) 7.0 L Nucleated RBC % Seg Neutrophils # Seg Neutrophils # Man 21.9 H Lymphocytes # (Manual) Monocytes # (Manual) 1.9 H PT 21.8 H INR 1.95 H APTT 74.5 H* D-Dimer POC ABG pH ABG pH POC ABG pCO2 POC ABG pO2 ABG pO2 ABG HCO3 ABG O2 Saturation ABG Base Excess ABG Hemoglobin VBG pH Oxyhemoglobin Sodium Potassium Chloride Carbon Dioxide BUN Creatinine Glucose POC Glucose > 500 H Hemoglobin A1c Lactic Acid Calcium Phosphorus Magnesium Iron TIBC Direct Bilirubin AST ALT Alkaline Phosphatase Total Creatine Kinase CK-MB (CK-2) C-Reactive Protein Total Protein Albumin Vitamin B12 Urine WBC (Auto) Salicylates Acetaminophen Miscellaneous Test Crossmatch 03/29/19 03/29/19 03/29/19 19:20 19:47 20:59 WBC RBC Hgb Hct MCV MCH MCHC RDW Plt Count Lymph % (Auto) [place] % (Auto) Lymph # Seg Neutrophils % Seg Neuts % (Manual) Lymphocytes % (Manual) Nucleated RBC % Seg Neutrophils # Seg Neutrophils # Man Lymphocytes # (Manual) Monocytes # (Manual) PT INR APTT D-Dimer POC ABG pH 6.892 L ABG pH POC ABG pCO2 POC ABG pO2 236 H ABG pO2 ABG HCO3 ABG O2 Saturation ABG Base Excess ABG Hemoglobin VBG pH 6.800 L* Oxyhemoglobin Sodium 118 L* Potassium 9.0 H* Chloride 64.5 L Carbon Dioxide 7 L* BUN 53 H Creatinine 2.1 H Glucose 2196 H* POC Glucose Hemoglobin A1c Lactic Acid Calcium 12.4 H* Phosphorus Magnesium Iron TIBC Direct Bilirubin AST 3900 H ALT 1034 H Alkaline Phosphatase 316 H Total Creatine Kinase CK-MB (CK-2) C-Reactive Protein Total Protein 5.1 L Albumin 2.8 L Vitamin B12 Urine WBC (Auto) Salicylates Acetaminophen Miscellaneous Test Crossmatch 03/29/19 03/29/19 03/29/19 22:45 22:45 22:45 WBC RBC Hgb Hct MCV MCH MCHC RDW Plt Count Lymph % (Auto) [place] % (Auto) Lymph # Seg Neutrophils % Seg Neuts % (Manual) Lymphocytes % (Manual) Nucleated RBC % Seg Neutrophils # Seg Neutrophils # Man Lymphocytes # (Manual) Monocytes # (Manual) PT INR APTT D-Dimer POC ABG pH ABG pH POC ABG pCO2 POC ABG pO2 ABG pO2 ABG HCO3 ABG O2 Saturation ABG Base Excess ABG Hemoglobin VBG pH Oxyhemoglobin Sodium 132 L D Potassium 7.0 H* Chloride 84.3 L Carbon Dioxide 3 L* BUN 48 H Creatinine 1.8 H Glucose 1779 H* POC Glucose Hemoglobin A1c Lactic Acid Calcium Phosphorus 21.70 H Magnesium 4.70 H Iron TIBC Direct Bilirubin AST ALT Alkaline Phosphatase Total Creatine Kinase 363 H CK-MB (CK-2) C-Reactive Protein Total Protein Albumin Vitamin B12 Urine WBC (Auto) Salicylates Acetaminophen Miscellaneous Test Crossmatch 03/29/19 03/29/19 03/30/19 Unknown Unknown 00:11 WBC RBC Hgb Hct MCV MCH MCHC RDW Plt Count Lymph % (Auto) [place] % (Auto) Lymph # Seg Neutrophils % Seg Neuts % (Manual) Lymphocytes % (Manual) Nucleated RBC % Seg Neutrophils # Seg Neutrophils # Man Lymphocytes # (Manual) Monocytes # (Manual) PT INR APTT D-Dimer POC ABG pH ABG pH POC ABG pCO2 POC ABG pO2 ABG pO2 ABG HCO3 ABG O2 Saturation ABG Base Excess ABG Hemoglobin VBG pH Oxyhemoglobin Sodium 122 L Potassium 7.9 H* 6.4 H* Chloride 75.3 L 89.7 L Carbon Dioxide 3 L* 12 L D BUN 52 H 46 H Creatinine 2.0 H 1.7 H Glucose 2043 H* 1591 H* POC Glucose Hemoglobin A1c Lactic Acid Calcium 7.8 L Phosphorus 19.30 H Magnesium 3.90 H Iron TIBC Direct Bilirubin AST ALT Alkaline Phosphatase Total Creatine Kinase CK-MB (CK-2) C-Reactive Protein Total Protein Albumin Vitamin B12 Urine WBC (Auto) Salicylates Acetaminophen Miscellaneous Test Crossmatch 03/30/19 03/30/19 03/30/19 00:11 02:14 02:14 WBC RBC Hgb Hct MCV MCH MCHC RDW Plt Count Lymph % (Auto) [place] % (Auto) Lymph # Seg Neutrophils % Seg Neuts % (Manual) Lymphocytes % (Manual) Nucleated RBC % Seg Neutrophils # Seg Neutrophils # Man Lymphocytes # (Manual) Monocytes # (Manual) PT INR APTT D-Dimer POC ABG pH ABG pH POC ABG pCO2 POC ABG pO2 ABG pO2 ABG HCO3 ABG O2 Saturation ABG Base Excess ABG Hemoglobin VBG pH Oxyhemoglobin Sodium Potassium Chloride Carbon Dioxide 9 L* BUN 45 H Creatinine 1.7 H Glucose 1155 H* POC Glucose Hemoglobin A1c Lactic Acid Calcium 7.9 L Phosphorus 10.90 H D 5.30 H D Magnesium 3.10 H 2.90 H Iron TIBC Direct Bilirubin AST ALT Alkaline Phosphatase Total Creatine Kinase CK-MB (CK-2) C-Reactive Protein Total Protein Albumin Vitamin B12 Urine WBC (Auto) Salicylates Acetaminophen Miscellaneous Test Crossmatch 03/30/19 03/30/19 03/30/19 03:15 03:30 04:23 WBC 18.0 H RBC 2.31 L Hgb 7.3 L Hct 23.8 L D MCV 103 H MCH MCHC RDW 17.1 H Plt Count Lymph % (Auto) [place] % (Auto) Lymph # Seg Neutrophils % Seg Neuts % (Manual) 79.0 H Lymphocytes % (Manual) Nucleated RBC % Seg Neutrophils # Seg Neutrophils # Man 14.2 H Lymphocytes # (Manual) Monocytes # (Manual) PT INR APTT D-Dimer POC ABG pH 7.251 L ABG pH POC ABG pCO2 POC ABG pO2 156 H ABG pO2 ABG HCO3 ABG O2 Saturation ABG Base Excess ABG Hemoglobin VBG pH Oxyhemoglobin Sodium Potassium Chloride Carbon Dioxide BUN Creatinine Glucose POC Glucose Hemoglobin A1c Lactic Acid Calcium Phosphorus Magnesium Iron TIBC Direct Bilirubin AST ALT Alkaline Phosphatase Total Creatine Kinase CK-MB (CK-2) C-Reactive Protein Total Protein Albumin Vitamin B12 Urine WBC (Auto) Salicylates Acetaminophen Miscellaneous Test Crossmatch See Detail 03/30/19 03/30/19 03/30/19 05:26 05:26 10:38 WBC RBC Hgb Hct MCV MCH MCHC RDW Plt Count Lymph % (Auto) [place] % (Auto) Lymph # Seg Neutrophils % Seg Neuts % (Manual) Lymphocytes % (Manual) Nucleated RBC % Seg Neutrophils # Seg Neutrophils # Man Lymphocytes # (Manual) Monocytes # (Manual) PT INR APTT D-Dimer POC ABG pH ABG pH POC ABG pCO2 POC ABG pO2 ABG pO2 ABG HCO3 ABG O2 Saturation ABG Base Excess ABG Hemoglobin VBG pH Oxyhemoglobin Sodium 158 H D Potassium 3.5 L Chloride 109.3 H Carbon Dioxide 19 L D BUN 40 H Creatinine 1.5 H Glucose 760 H* POC Glucose 380 H Hemoglobin A1c Lactic Acid Calcium 7.3 L Phosphorus Magnesium 2.60 H Iron TIBC Direct Bilirubin AST 35849 H ALT 2156 H Alkaline Phosphatase 271 H Total Creatine Kinase 2465 H CK-MB (CK-2) 52.7 H C-Reactive Protein Total Protein 4.5 L Albumin 2.4 L Vitamin B12 Urine WBC (Auto) Salicylates Acetaminophen Miscellaneous Test Crossmatch 03/30/19 03/30/19 03/30/19 11:08 12:25 12:57 WBC RBC Hgb Hct MCV MCH MCHC RDW Plt Count Lymph % (Auto) [place] % (Auto) Lymph # Seg Neutrophils % Seg Neuts % (Manual) Lymphocytes % (Manual) Nucleated RBC % Seg Neutrophils # Seg Neutrophils # Man Lymphocytes # (Manual) Monocytes # (Manual) PT INR APTT D-Dimer POC ABG pH ABG pH POC ABG pCO2 POC ABG pO2 ABG pO2 ABG HCO3 ABG O2 Saturation ABG Base Excess ABG Hemoglobin VBG pH Oxyhemoglobin Sodium 156 H Potassium 3.2 L Chloride 116.4 H Carbon Dioxide 21 L BUN 37 H Creatinine Glucose 162 H POC Glucose 263 H 196 H Hemoglobin A1c Lactic Acid Calcium 7.2 L Phosphorus Magnesium Iron TIBC Direct Bilirubin AST ALT Alkaline Phosphatase Total Creatine Kinase CK-MB (CK-2) C-Reactive Protein Total Protein Albumin Vitamin B12 Urine WBC (Auto) Salicylates Acetaminophen Miscellaneous Test Crossmatch 03/30/19 03/30/19 03/30/19 12:57 12:57 12:57 WBC RBC Hgb Hct MCV MCH MCHC RDW Plt Count Lymph % (Auto) [place] % (Auto) Lymph # Seg Neutrophils % Seg Neuts % (Manual) Lymphocytes % (Manual) Nucleated RBC % Seg Neutrophils # Seg Neutrophils # Man Lymphocytes # (Manual) Monocytes # (Manual) PT 21.0 H INR 1.86 H APTT D-Dimer POC ABG pH ABG pH POC ABG pCO2 POC ABG pO2 ABG pO2 ABG HCO3 ABG O2 Saturation ABG Base Excess ABG Hemoglobin VBG pH Oxyhemoglobin Sodium Potassium Chloride Carbon Dioxide BUN Creatinine Glucose POC Glucose Hemoglobin A1c Lactic Acid 9.00 H* Calcium Phosphorus Magnesium Iron TIBC Direct Bilirubin AST ALT Alkaline Phosphatase Total Creatine Kinase CK-MB (CK-2) C-Reactive Protein 2.40 H Total Protein Albumin Vitamin B12 Urine WBC (Auto) Salicylates Acetaminophen Miscellaneous Test Crossmatch 03/30/19 03/30/19 03/30/19 13:23 14:00 14:47 WBC RBC Hgb Hct MCV MCH MCHC RDW Plt Count Lymph % (Auto) [place] % (Auto) Lymph # Seg Neutrophils % Seg Neuts % (Manual) Lymphocytes % (Manual) Nucleated RBC % Seg Neutrophils # Seg Neutrophils # Man Lymphocytes # (Manual) Monocytes # (Manual) PT INR APTT D-Dimer POC ABG pH ABG pH POC ABG pCO2 POC ABG pO2 ABG pO2 ABG HCO3 ABG O2 Saturation ABG Base Excess ABG Hemoglobin VBG pH Oxyhemoglobin Sodium Potassium Chloride Carbon Dioxide BUN Creatinine Glucose POC Glucose 176 H 245 H Hemoglobin A1c Lactic Acid Calcium Phosphorus Magnesium Iron TIBC Direct Bilirubin AST ALT Alkaline Phosphatase Total Creatine Kinase CK-MB (CK-2) C-Reactive Protein Total Protein Albumin Vitamin B12 Urine WBC (Auto) Salicylates Acetaminophen Miscellaneous Test Flexitest 1 H Crossmatch 03/30/19 03/30/1919 16:11 17:11 17:46 WBC RBC Hgb Hct MCV MCH MCHC RDW Plt Count Lymph % (Auto) [place] % (Auto) Lymph # Seg Neutrophils % Seg Neuts % (Manual) Lymphocytes % (Manual) Nucleated RBC % Seg Neutrophils # Seg Neutrophils # Man Lymphocytes # (Manual) Monocytes # (Manual) PT INR APTT D-Dimer POC ABG pH ABG pH POC ABG pCO2 POC ABG pO2 ABG pO2 ABG HCO3 ABG O2 Saturation ABG Base Excess ABG Hemoglobin VBG pH Oxyhemoglobin Sodium Potassium Chloride Carbon Dioxide BUN Creatinine Glucose POC Glucose 181 H 167 H 125 H Hemoglobin A1c Lactic Acid Calcium Phosphorus Magnesium Iron TIBC Direct Bilirubin AST ALT Alkaline Phosphatase Total Creatine Kinase CK-MB (CK-2) C-Reactive Protein Total Protein Albumin Vitamin B12 Urine WBC (Auto) Salicylates Acetaminophen Miscellaneous Test Crossmatch 03/30/19 03/30/19 03/30/19 18:59 21:31 22:19 WBC RBC Hgb Hct MCV MCH MCHC RDW Plt Count Lymph % (Auto) [place] % (Auto) Lymph # Seg Neutrophils % Seg Neuts % (Manual) Lymphocytes % (Manual) Nucleated RBC % Seg Neutrophils # Seg Neutrophils # Man Lymphocytes # (Manual) Monocytes # (Manual) PT INR APTT D-Dimer POC ABG pH ABG pH POC ABG pCO2 POC ABG pO2 ABG pO2 ABG HCO3 ABG O2 Saturation ABG Base Excess ABG Hemoglobin VBG pH Oxyhemoglobin Sodium Potassium Chloride Carbon Dioxide BUN Creatinine Glucose POC Glucose 140 H 166 H 115 H Hemoglobin A1c Lactic Acid Calcium Phosphorus Magnesium Iron TIBC Direct Bilirubin AST ALT Alkaline Phosphatase Total Creatine Kinase CK-MB (CK-2) C-Reactive Protein Total Protein Albumin Vitamin B12 Urine WBC (Auto) Salicylates Acetaminophen Miscellaneous Test Crossmatch 03/30/19 03/30/19 03/30/19 23:13 Unknown Unknown WBC RBC Hgb Hct MCV MCH MCHC RDW Plt Count Lymph % (Auto) [place] % (Auto) Lymph # Seg Neutrophils % Seg Neuts % (Manual) Lymphocytes % (Manual) Nucleated RBC % Seg Neutrophils # Seg Neutrophils # Man Lymphocytes # (Manual) Monocytes # (Manual) PT INR APTT D-Dimer POC ABG pH ABG pH POC ABG pCO2 POC ABG pO2 ABG pO2 47.8 L ABG HCO3 18.8 L ABG O2 Saturation 83.8 L ABG Base Excess -5.4 L ABG Hemoglobin 6.8 L VBG pH Oxyhemoglobin 81.8 L Sodium 157 H Potassium 3.3 L Chloride 117.9 H Carbon Dioxide 20 L BUN 36 H Creatinine Glucose 150 H POC Glucose 112 H Hemoglobin A1c Lactic Acid Calcium 7.2 L Phosphorus Magnesium Iron TIBC Direct Bilirubin AST ALT Alkaline Phosphatase Total Creatine Kinase CK-MB (CK-2) C-Reactive Protein Total Protein Albumin Vitamin B12 Urine WBC (Auto) Salicylates Acetaminophen Miscellaneous Test Crossmatch 03/30/19 03/30/19 03/31/19 Unknown Unknown 00:03 WBC RBC Hgb Hct MCV MCH MCHC RDW Plt Count Lymph % (Auto) [place] % (Auto) Lymph # Seg Neutrophils % Seg Neuts % (Manual) Lymphocytes % (Manual) Nucleated RBC % Seg Neutrophils # Seg Neutrophils # Man Lymphocytes # (Manual) Monocytes # (Manual) PT INR APTT D-Dimer POC ABG pH ABG pH POC ABG pCO2 POC ABG pO2 ABG pO2 ABG HCO3 ABG O2 Saturation ABG Base Excess ABG Hemoglobin VBG pH Oxyhemoglobin Sodium Potassium Chloride Carbon Dioxide BUN Creatinine Glucose POC Glucose 188 H Hemoglobin A1c Lactic Acid Calcium Phosphorus Magnesium Iron TIBC Direct Bilirubin AST ALT Alkaline Phosphatase Total Creatine Kinase CK-MB (CK-2) C-Reactive Protein Total Protein Albumin Vitamin B12 Urine WBC (Auto) Salicylates 0.8 L Acetaminophen < 5.0 L Miscellaneous Test Crossmatch 03/31/19 03/31/19 03/31/19 01:18 03:07 03:50 WBC RBC Hgb Hct MCV MCH MCHC RDW Plt Count Lymph % (Auto) [place] % (Auto) Lymph # Seg Neutrophils % Seg Neuts % (Manual) Lymphocytes % (Manual) Nucleated RBC % Seg Neutrophils # Seg Neutrophils # Man Lymphocytes # (Manual) Monocytes # (Manual) PT INR APTT D-Dimer POC ABG pH ABG pH 7.525 H POC ABG pCO2 POC ABG pO2 ABG pO2 178.0 H ABG HCO3 19.5 L ABG O2 Saturation 99.2 H ABG Base Excess -3.1 L ABG Hemoglobin 5.8 L VBG pH Oxyhemoglobin Sodium Potassium Chloride Carbon Dioxide BUN Creatinine Glucose POC Glucose 114 H 107 H Hemoglobin A1c Lactic Acid Calcium Phosphorus Magnesium Iron TIBC Direct Bilirubin AST ALT Alkaline Phosphatase Total Creatine Kinase CK-MB (CK-2) C-Reactive Protein Total Protein Albumin Vitamin B12 Urine WBC (Auto) Salicylates Acetaminophen Miscellaneous Test Crossmatch 03/31/19 03/31/19 03/31/19 03:51 03:51 04:05 WBC RBC 1.89 L Hgb 6.1 L Hct 18.2 L* MCV MCH MCHC RDW 17.7 H Plt Count 89 L Lymph % (Auto) [place] % (Auto) Lymph # Seg Neutrophils % Seg Neuts % (Manual) 86.0 H Lymphocytes % (Manual) 10.0 L Nucleated RBC % 1.0 H Seg Neutrophils # Seg Neutrophils # Man Lymphocytes # (Manual) 0.7 L Monocytes # (Manual) PT INR APTT D-Dimer POC ABG pH ABG pH POC ABG pCO2 POC ABG pO2 ABG pO2 ABG HCO3 ABG O2 Saturation ABG Base Excess ABG Hemoglobin VBG pH Oxyhemoglobin Sodium 151 H Potassium 3.2 L Chloride 119.4 H Carbon Dioxide 17 L BUN 35 H Creatinine Glucose 139 H POC Glucose 153 H Hemoglobin A1c Lactic Acid Calcium 7.1 L Phosphorus Magnesium Iron TIBC Direct Bilirubin AST ALT Alkaline Phosphatase Total Creatine Kinase CK-MB (CK-2) C-Reactive Protein Total Protein Albumin Vitamin B12 Urine WBC (Auto) Salicylates Acetaminophen Miscellaneous Test Crossmatch 03/31/19 03/31/19 03/31/19 05:05 05:35 06:23 WBC RBC Hgb Hct MCV MCH MCHC RDW Plt Count Lymph % (Auto) [place] % (Auto) Lymph # Seg Neutrophils % Seg Neuts % (Manual) Lymphocytes % (Manual) Nucleated RBC % Seg Neutrophils # Seg Neutrophils # Man Lymphocytes # (Manual) Monocytes # (Manual) PT INR APTT D-Dimer POC ABG pH ABG pH POC ABG pCO2 POC ABG pO2 ABG pO2 ABG HCO3 ABG O2 Saturation ABG Base Excess ABG Hemoglobin VBG pH Oxyhemoglobin Sodium Potassium Chloride Carbon Dioxide BUN Creatinine Glucose POC Glucose 176 H 133 H Hemoglobin A1c Lactic Acid 3.20 H* Calcium Phosphorus Magnesium Iron TIBC Direct Bilirubin AST ALT Alkaline Phosphatase Total Creatine Kinase CK-MB (CK-2) C-Reactive Protein Total Protein Albumin Vitamin B12 Urine WBC (Auto) Salicylates Acetaminophen Miscellaneous Test Crossmatch 03/31/19 03/31/19 03/31/19 07:50 07:51 08:20 WBC RBC Hgb Hct MCV MCH MCHC RDW Plt Count Lymph % (Auto) [place] % (Auto) Lymph # Seg Neutrophils % Seg Neuts % (Manual) Lymphocytes % (Manual) Nucleated RBC % Seg Neutrophils # Seg Neutrophils # Man Lymphocytes # (Manual) Monocytes # (Manual) PT INR APTT D-Dimer POC ABG pH ABG pH POC ABG pCO2 POC ABG pO2 ABG pO2 ABG HCO3 ABG O2 Saturation ABG Base Excess ABG Hemoglobin VBG pH Oxyhemoglobin Sodium Potassium Chloride Carbon Dioxide BUN Creatinine Glucose POC Glucose 135 H Hemoglobin A1c Lactic Acid 3.30 H* Calcium Phosphorus Magnesium Iron 26 L TIBC 193 L Direct Bilirubin AST ALT Alkaline Phosphatase Total Creatine Kinase CK-MB (CK-2) C-Reactive Protein Total Protein Albumin Vitamin B12 Urine WBC (Auto) Salicylates Acetaminophen Miscellaneous Test Crossmatch 03/31/19 03/31/19 03/31/19 08:20 08:20 09:06 WBC RBC Hgb Hct MCV MCH MCHC RDW Plt Count Lymph % (Auto) [place] % (Auto) Lymph # Seg Neutrophils % Seg Neuts % (Manual) Lymphocytes % (Manual) Nucleated RBC % Seg Neutrophils # Seg Neutrophils # Man Lymphocytes # (Manual) Monocytes # (Manual) PT INR APTT D-Dimer POC ABG pH ABG pH POC ABG pCO2 POC ABG pO2 ABG pO2 ABG HCO3 ABG O2 Saturation ABG Base Excess ABG Hemoglobin VBG pH Oxyhemoglobin Sodium 153 H Potassium 3.0 L Chloride 118.9 H Carbon Dioxide 18 L BUN 37 H Creatinine Glucose 132 H POC Glucose 145 H Hemoglobin A1c Lactic Acid Calcium 7.1 L Phosphorus Magnesium Iron TIBC Direct Bilirubin AST ALT Alkaline Phosphatase Total Creatine Kinase CK-MB (CK-2) C-Reactive Protein Total Protein Albumin Vitamin B12 > 2000 H Urine WBC (Auto) Salicylates Acetaminophen Miscellaneous Test Crossmatch 03/31/19 03/31/19 03/31/19 10:47 11:49 13:04 WBC RBC Hgb Hct MCV MCH MCHC RDW Plt Count Lymph % (Auto) [place] % (Auto) Lymph # Seg Neutrophils % Seg Neuts % (Manual) Lymphocytes % (Manual) Nucleated RBC % Seg Neutrophils # Seg Neutrophils # Man Lymphocytes # (Manual) Monocytes # (Manual) PT INR APTT D-Dimer POC ABG pH ABG pH POC ABG pCO2 POC ABG pO2 ABG pO2 ABG HCO3 ABG O2 Saturation ABG Base Excess ABG Hemoglobin VBG pH Oxyhemoglobin Sodium Potassium Chloride Carbon Dioxide BUN Creatinine Glucose POC Glucose 153 H 174 H 214 H Hemoglobin A1c Lactic Acid Calcium Phosphorus Magnesium Iron TIBC Direct Bilirubin AST ALT Alkaline Phosphatase Total Creatine Kinase CK-MB (CK-2) C-Reactive Protein Total Protein Albumin Vitamin B12 Urine WBC (Auto) Salicylates Acetaminophen Miscellaneous Test Crossmatch 03/31/19 03/31/19 03/31/19 13:42 15:08 16:08 WBC RBC Hgb Hct MCV MCH MCHC RDW Plt Count Lymph % (Auto) [place] % (Auto) Lymph # Seg Neutrophils % Seg Neuts % (Manual) Lymphocytes % (Manual) Nucleated RBC % Seg Neutrophils # Seg Neutrophils # Man Lymphocytes # (Manual) Monocytes # (Manual) PT INR APTT D-Dimer POC ABG pH ABG pH POC ABG pCO2 POC ABG pO2 ABG pO2 ABG HCO3 ABG O2 Saturation ABG Base Excess ABG Hemoglobin VBG pH Oxyhemoglobin Sodium Potassium Chloride Carbon Dioxide BUN Creatinine Glucose POC Glucose 186 H 136 H 150 H Hemoglobin A1c Lactic Acid Calcium Phosphorus Magnesium Iron TIBC Direct Bilirubin AST ALT Alkaline Phosphatase Total Creatine Kinase CK-MB (CK-2) C-Reactive Protein Total Protein Albumin Vitamin B12 Urine WBC (Auto) Salicylates Acetaminophen Miscellaneous Test Crossmatch 03/31/19 03/31/19 03/31/19 17:11 17:30 17:30 WBC RBC Hgb 7.7 L Hct 23.0 L MCV MCH MCHC RDW Plt Count Lymph % (Auto) [place] % (Auto) Lymph # Seg Neutrophils % Seg Neuts % (Manual) Lymphocytes % (Manual) Nucleated RBC % Seg Neutrophils # Seg Neutrophils # Man Lymphocytes # (Manual) Monocytes # (Manual) PT INR APTT D-Dimer POC ABG pH ABG pH POC ABG pCO2 POC ABG pO2 ABG pO2 ABG HCO3 ABG O2 Saturation ABG Base Excess ABG Hemoglobin VBG pH Oxyhemoglobin Sodium 153 H Potassium 3.5 L Chloride 119.3 H Carbon Dioxide 20 L BUN 34 H Creatinine Glucose 162 H POC Glucose 140 H Hemoglobin A1c Lactic Acid Calcium 7.6 L Phosphorus Magnesium Iron TIBC Direct Bilirubin AST ALT Alkaline Phosphatase Total Creatine Kinase CK-MB (CK-2) C-Reactive Protein Total Protein Albumin Vitamin B12 Urine WBC (Auto) Salicylates Acetaminophen Miscellaneous Test Crossmatch 03/31/19 03/31/19 03/31/19 17:59 18:58 20:28 WBC RBC Hgb Hct MCV MCH MCHC RDW Plt Count Lymph % (Auto) [place] % (Auto) Lymph # Seg Neutrophils % Seg Neuts % (Manual) Lymphocytes % (Manual) Nucleated RBC % Seg Neutrophils # Seg Neutrophils # Man Lymphocytes # (Manual) Monocytes # (Manual) PT INR APTT D-Dimer POC ABG pH ABG pH POC ABG pCO2 POC ABG pO2 ABG pO2 ABG HCO3 ABG O2 Saturation ABG Base Excess ABG Hemoglobin VBG pH Oxyhemoglobin Sodium Potassium Chloride Carbon Dioxide BUN Creatinine Glucose POC Glucose 156 H 152 H 138 H Hemoglobin A1c Lactic Acid Calcium Phosphorus Magnesium Iron TIBC Direct Bilirubin AST ALT Alkaline Phosphatase Total Creatine Kinase CK-MB (CK-2) C-Reactive Protein Total Protein Albumin Vitamin B12 Urine WBC (Auto) Salicylates Acetaminophen Miscellaneous Test Crossmatch 03/31/19 03/31/19 03/31/19 21:09 22:15 23:10 WBC RBC Hgb Hct MCV MCH MCHC RDW Plt Count Lymph % (Auto) [place] % (Auto) Lymph # Seg Neutrophils % Seg Neuts % (Manual) Lymphocytes % (Manual) Nucleated RBC % Seg Neutrophils # Seg Neutrophils # Man Lymphocytes # (Manual) Monocytes # (Manual) PT INR APTT D-Dimer POC ABG pH ABG pH POC ABG pCO2 POC ABG pO2 ABG pO2 ABG HCO3 ABG O2 Saturation ABG Base Excess ABG Hemoglobin VBG pH Oxyhemoglobin Sodium Potassium Chloride Carbon Dioxide BUN Creatinine Glucose POC Glucose 136 H 137 H 148 H Hemoglobin A1c Lactic Acid Calcium Phosphorus Magnesium Iron TIBC Direct Bilirubin AST ALT Alkaline Phosphatase Total Creatine Kinase CK-MB (CK-2) C-Reactive Protein Total Protein Albumin Vitamin B12 Urine WBC (Auto) Salicylates Acetaminophen Miscellaneous Test Crossmatch 04/01/19 04/01/19 04/01/19 00:05 01:17 02:11 WBC RBC Hgb Hct MCV MCH MCHC RDW Plt Count Lymph % (Auto) [place] % (Auto) Lymph # Seg Neutrophils % Seg Neuts % (Manual) Lymphocytes % (Manual) Nucleated RBC % Seg Neutrophils # Seg Neutrophils # Man Lymphocytes # (Manual) Monocytes # (Manual) PT INR APTT D-Dimer POC ABG pH ABG pH POC ABG pCO2 POC ABG pO2 ABG pO2 ABG HCO3 ABG O2 Saturation ABG Base Excess ABG Hemoglobin VBG pH Oxyhemoglobin Sodium Potassium Chloride Carbon Dioxide BUN Creatinine Glucose POC Glucose 143 H 151 H 155 H Hemoglobin A1c Lactic Acid Calcium Phosphorus Magnesium Iron TIBC Direct Bilirubin AST ALT Alkaline Phosphatase Total Creatine Kinase CK-MB (CK-2) C-Reactive Protein Total Protein Albumin Vitamin B12 Urine WBC (Auto) Salicylates Acetaminophen Miscellaneous Test Crossmatch 04/01/19 04/01/19 04/01/19 03:12 04:03 04:16 WBC RBC Hgb Hct MCV MCH MCHC RDW Plt Count Lymph % (Auto) [place] % (Auto) Lymph # Seg Neutrophils % Seg Neuts % (Manual) Lymphocytes % (Manual) Nucleated RBC % Seg Neutrophils # Seg Neutrophils # Man Lymphocytes # (Manual) Monocytes # (Manual) PT INR APTT D-Dimer POC ABG pH ABG pH POC ABG pCO2 POC ABG pO2 ABG pO2 ABG HCO3 ABG O2 Saturation ABG Base Excess ABG Hemoglobin VBG pH Oxyhemoglobin Sodium Potassium Chloride Carbon Dioxide BUN Creatinine Glucose POC Glucose 140 H 143 H 142 H Hemoglobin A1c Lactic Acid Calcium Phosphorus Magnesium Iron TIBC Direct Bilirubin AST ALT Alkaline Phosphatase Total Creatine Kinase CK-MB (CK-2) C-Reactive Protein Total Protein Albumin Vitamin B12 Urine WBC (Auto) Salicylates Acetaminophen Miscellaneous Test Crossmatch 04/01/19 04/01/19 04/01/19 05:01 05:01 05:08 WBC RBC 2.05 L Hgb 6.8 L Hct 20.5 L MCV 100 H MCH 33 H MCHC RDW 17.7 H Plt Count 53 L Lymph % (Auto) [place] % (Auto) Lymph # Seg Neutrophils % Seg Neuts % (Manual) 71.0 H Lymphocytes % (Manual) Nucleated RBC % Seg Neutrophils # Seg Neutrophils # Man Lymphocytes # (Manual) Monocytes # (Manual) PT INR APTT D-Dimer POC ABG pH ABG pH POC ABG pCO2 POC ABG pO2 ABG pO2 ABG HCO3 ABG O2 Saturation ABG Base Excess ABG Hemoglobin VBG pH Oxyhemoglobin Sodium Potassium Chloride Carbon Dioxide BUN Creatinine Glucose POC Glucose 119 H Hemoglobin A1c Lactic Acid Calcium Phosphorus Magnesium Iron TIBC Direct Bilirubin 0.3 H AST 4601 H ALT 1542 H Alkaline Phosphatase 185 H Total Creatine Kinase CK-MB (CK-2) C-Reactive Protein Total Protein 3.8 L Albumin 1.6 L Vitamin B12 Urine WBC (Auto) Salicylates Acetaminophen Miscellaneous Test Crossmatch 04/01/19 04/01/19 04/01/19 05:23 06:37 08:15 WBC RBC Hgb Hct MCV MCH MCHC RDW Plt Count Lymph % (Auto) [place] % (Auto) Lymph # Seg Neutrophils % Seg Neuts % (Manual) Lymphocytes % (Manual) Nucleated RBC % Seg Neutrophils # Seg Neutrophils # Man Lymphocytes # (Manual) Monocytes # (Manual) PT INR APTT D-Dimer POC ABG pH ABG pH POC ABG pCO2 POC ABG pO2 ABG pO2 ABG HCO3 ABG O2 Saturation ABG Base Excess ABG Hemoglobin VBG pH Oxyhemoglobin Sodium Potassium Chloride Carbon Dioxide BUN Creatinine Glucose POC Glucose 115 H 124 H 138 H Hemoglobin A1c Lactic Acid Calcium Phosphorus Magnesium Iron TIBC Direct Bilirubin AST ALT Alkaline Phosphatase Total Creatine Kinase CK-MB (CK-2) C-Reactive Protein Total Protein Albumin Vitamin B12 Urine WBC (Auto) Salicylates Acetaminophen Miscellaneous Test Crossmatch 04/01/19 04/01/19 04/01/19 09:50 10:10 10:31 WBC RBC Hgb 6.5 L Hct 19.2 L* MCV MCH MCHC RDW Plt Count Lymph % (Auto) [place] % (Auto) Lymph # Seg Neutrophils % Seg Neuts % (Manual) Lymphocytes % (Manual) Nucleated RBC % Seg Neutrophils # Seg Neutrophils # Man Lymphocytes # (Manual) Monocytes # (Manual) PT INR APTT D-Dimer POC ABG pH ABG pH POC ABG pCO2 POC ABG pO2 ABG pO2 ABG HCO3 ABG O2 Saturation ABG Base Excess ABG Hemoglobin VBG pH Oxyhemoglobin Sodium 149 H Potassium 3.5 L Chloride 119.9 H Carbon Dioxide 21 L BUN 33 H Creatinine 0.5 L Glucose 142 H POC Glucose 185 H Hemoglobin A1c Lactic Acid Calcium 7.3 L Phosphorus Magnesium Iron TIBC Direct Bilirubin AST 3686 H ALT 1440 H Alkaline Phosphatase 185 H Total Creatine Kinase CK-MB (CK-2) C-Reactive Protein Total Protein 3.7 L Albumin 1.8 L Vitamin B12 Urine WBC (Auto) Salicylates Acetaminophen Miscellaneous Test Crossmatch 04/01/19 04/01/19 04/01/19 11:35 13:05 14:35 WBC RBC Hgb Hct MCV MCH MCHC RDW Plt Count Lymph % (Auto) [place] % (Auto) Lymph # Seg Neutrophils % Seg Neuts % (Manual) Lymphocytes % (Manual) Nucleated RBC % Seg Neutrophils # Seg Neutrophils # Man Lymphocytes # (Manual) Monocytes # (Manual) PT INR APTT D-Dimer POC ABG pH ABG pH POC ABG pCO2 POC ABG pO2 ABG pO2 ABG HCO3 ABG O2 Saturation ABG Base Excess ABG Hemoglobin VBG pH Oxyhemoglobin Sodium Potassium Chloride Carbon Dioxide BUN Creatinine Glucose POC Glucose 201 H 169 H 134 H Hemoglobin A1c Lactic Acid Calcium Phosphorus Magnesium Iron TIBC Direct Bilirubin AST ALT Alkaline Phosphatase Total Creatine Kinase CK-MB (CK-2) C-Reactive Protein Total Protein Albumin Vitamin B12 Urine WBC (Auto) Salicylates Acetaminophen Miscellaneous Test Crossmatch 04/01/19 04/01/19 04/01/19 17:13 17:14 18:30 WBC RBC Hgb Hct MCV MCH MCHC RDW Plt Count Lymph % (Auto) [place] % (Auto) Lymph # Seg Neutrophils % Seg Neuts % (Manual) Lymphocytes % (Manual) Nucleated RBC % Seg Neutrophils # Seg Neutrophils # Man Lymphocytes # (Manual) Monocytes # (Manual) PT INR APTT D-Dimer 5203.68 H POC ABG pH ABG pH POC ABG pCO2 POC ABG pO2 ABG pO2 ABG HCO3 ABG O2 Saturation ABG Base Excess ABG Hemoglobin VBG pH Oxyhemoglobin Sodium Potassium Chloride Carbon Dioxide BUN Creatinine Glucose POC Glucose 69 L 128 H Hemoglobin A1c Lactic Acid Calcium Phosphorus Magnesium Iron TIBC Direct Bilirubin AST ALT Alkaline Phosphatase Total Creatine Kinase CK-MB (CK-2) C-Reactive Protein Total Protein Albumin Vitamin B12 Urine WBC (Auto) Salicylates Acetaminophen Miscellaneous Test Crossmatch 04/01/19 04/01/19 04/02/19 22:50 Unknown 03:40 WBC RBC Hgb Hct MCV MCH MCHC RDW Plt Count Lymph % (Auto) [place] % (Auto) Lymph # Seg Neutrophils % Seg Neuts % (Manual) Lymphocytes % (Manual) Nucleated RBC % Seg Neutrophils # Seg Neutrophils # Man Lymphocytes # (Manual) Monocytes # (Manual) PT INR APTT D-Dimer POC ABG pH ABG pH POC ABG pCO2 POC ABG pO2 ABG pO2 78.3 L 142.8 H ABG HCO3 15.5 L ABG O2 Saturation ABG Base Excess -3.5 L -8.2 L ABG Hemoglobin 6.8 L 8.2 L VBG pH Oxyhemoglobin 94.3 L Sodium Potassium Chloride Carbon Dioxide BUN Creatinine Glucose POC Glucose 342 H Hemoglobin A1c Lactic Acid Calcium Phosphorus Magnesium Iron TIBC Direct Bilirubin AST ALT Alkaline Phosphatase Total Creatine Kinase CK-MB (CK-2) C-Reactive Protein Total Protein Albumin Vitamin B12 Urine WBC (Auto) Salicylates Acetaminophen Miscellaneous Test Crossmatch 04/02/19 04/02/19 04/02/19 03:49 06:50 07:48 WBC RBC 2.65 L Hgb 8.6 L Hct 25.1 L MCV MCH MCHC RDW 17.6 H Plt Count 48 L Lymph % (Auto) [place] % (Auto) Lymph # Seg Neutrophils % Seg Neuts % (Manual) Lymphocytes % (Manual) Nucleated RBC % Seg Neutrophils # Seg Neutrophils # Man Lymphocytes # (Manual) Monocytes # (Manual) PT INR APTT D-Dimer POC ABG pH ABG pH POC ABG pCO2 POC ABG pO2 ABG pO2 ABG HCO3 ABG O2 Saturation ABG Base Excess ABG Hemoglobin VBG pH Oxyhemoglobin Sodium Potassium Chloride Carbon Dioxide BUN Creatinine Glucose POC Glucose 247 H 200 H Hemoglobin A1c Lactic Acid Calcium Phosphorus Magnesium Iron TIBC Direct Bilirubin AST ALT Alkaline Phosphatase Total Creatine Kinase CK-MB (CK-2) C-Reactive Protein Total Protein Albumin Vitamin B12 Urine WBC (Auto) Salicylates Acetaminophen Miscellaneous Test Crossmatch 04/02/19 04/02/19 04/02/19 07:48 11:18 14:07 WBC RBC Hgb Hct MCV MCH MCHC RDW Plt Count Lymph % (Auto) [place] % (Auto) Lymph # Seg Neutrophils % Seg Neuts % (Manual) Lymphocytes % (Manual) Nucleated RBC % Seg Neutrophils # Seg Neutrophils # Man Lymphocytes # (Manual) Monocytes # (Manual) PT INR APTT D-Dimer POC ABG pH ABG pH POC ABG pCO2 POC ABG pO2 ABG pO2 ABG HCO3 ABG O2 Saturation ABG Base Excess ABG Hemoglobin VBG pH Oxyhemoglobin Sodium Potassium 3.5 L Chloride 115.7 H Carbon Dioxide 19 L BUN 29 H Creatinine 0.5 L Glucose 159 H POC Glucose 154 H 149 H Hemoglobin A1c Lactic Acid Calcium 7.5 L Phosphorus Magnesium Iron TIBC Direct Bilirubin AST 1418 H ALT 1134 H Alkaline Phosphatase 242 H Total Creatine Kinase CK-MB (CK-2) C-Reactive Protein Total Protein 4.2 L Albumin 2.1 L Vitamin B12 Urine WBC (Auto) Salicylates Acetaminophen Miscellaneous Test Crossmatch 04/02/19 04/02/19 04/02/19 18:09 19:46 23:05 WBC RBC Hgb Hct MCV MCH MCHC RDW Plt Count Lymph % (Auto) [place] % (Auto) Lymph # Seg Neutrophils % Seg Neuts % (Manual) Lymphocytes % (Manual) Nucleated RBC % Seg Neutrophils # Seg Neutrophils # Man Lymphocytes # (Manual) Monocytes # (Manual) PT INR APTT D-Dimer POC ABG pH ABG pH POC ABG pCO2 POC ABG pO2 ABG pO2 ABG HCO3 ABG O2 Saturation ABG Base Excess ABG Hemoglobin VBG pH Oxyhemoglobin Sodium Potassium Chloride Carbon Dioxide BUN Creatinine Glucose POC Glucose 188 H 209 H 247 H Hemoglobin A1c Lactic Acid Calcium Phosphorus Magnesium Iron TIBC Direct Bilirubin AST ALT Alkaline Phosphatase Total Creatine Kinase CK-MB (CK-2) C-Reactive Protein Total Protein Albumin Vitamin B12 Urine WBC (Auto) Salicylates Acetaminophen Miscellaneous Test Crossmatch 04/03/19 04/03/19 04/03/19 02:58 03:40 03:40 WBC RBC 2.87 L Hgb 9.3 L Hct 27.0 L MCV MCH MCHC RDW 17.2 H Plt Count 65 L Lymph % (Auto) [place] % (Auto) 9.8 H Lymph # 1.1 L Seg Neutrophils % Seg Neuts % (Manual) Lymphocytes % (Manual) Nucleated RBC % Seg Neutrophils # Seg Neutrophils # Man Lymphocytes # (Manual) Monocytes # (Manual) PT INR APTT D-Dimer POC ABG pH ABG pH POC ABG pCO2 POC ABG pO2 ABG pO2 ABG HCO3 ABG O2 Saturation ABG Base Excess ABG Hemoglobin VBG pH Oxyhemoglobin Sodium 147 H Potassium 3.5 L Chloride 116.7 H Carbon Dioxide 18 L BUN Creatinine 0.4 L Glucose 150 H POC Glucose 166 H Hemoglobin A1c Lactic Acid Calcium 8.1 L Phosphorus 2.20 L Magnesium Iron TIBC Direct Bilirubin AST 594 H ALT 861 H Alkaline Phosphatase 299 H Total Creatine Kinase CK-MB (CK-2) C-Reactive Protein Total Protein 4.4 L Albumin 2.1 L Vitamin B12 Urine WBC (Auto) Salicylates Acetaminophen Miscellaneous Test Crossmatch 04/03/19 04/03/19 04/03/19 05:35 07:02 08:23 WBC RBC Hgb Hct MCV MCH MCHC RDW Plt Count Lymph % (Auto) [place] % (Auto) Lymph # Seg Neutrophils % Seg Neuts % (Manual) Lymphocytes % (Manual) Nucleated RBC % Seg Neutrophils # Seg Neutrophils # Man Lymphocytes # (Manual) Monocytes # (Manual) PT INR APTT D-Dimer POC ABG pH ABG pH POC ABG pCO2 POC ABG pO2 ABG pO2 97.7 H ABG HCO3 19.3 L ABG O2 Saturation ABG Base Excess -5.0 L ABG Hemoglobin 8.0 L VBG pH Oxyhemoglobin Sodium Potassium Chloride Carbon Dioxide BUN Creatinine Glucose POC Glucose 135 H 132 H Hemoglobin A1c Lactic Acid Calcium Phosphorus Magnesium Iron TIBC Direct Bilirubin AST ALT Alkaline Phosphatase Total Creatine Kinase CK-MB (CK-2) C-Reactive Protein Total Protein Albumin Vitamin B12 Urine WBC (Auto) Salicylates Acetaminophen Miscellaneous Test Crossmatch 04/03/19 04/03/19 04/03/19 11:58 15:11 17:53 WBC RBC Hgb Hct MCV MCH MCHC RDW Plt Count Lymph % (Auto) [place] % (Auto) Lymph # Seg Neutrophils % Seg Neuts % (Manual) Lymphocytes % (Manual) Nucleated RBC % Seg Neutrophils # Seg Neutrophils # Man Lymphocytes # (Manual) Monocytes # (Manual) PT INR APTT D-Dimer POC ABG pH ABG pH POC ABG pCO2 POC ABG pO2 ABG pO2 ABG HCO3 ABG O2 Saturation ABG Base Excess ABG Hemoglobin VBG pH Oxyhemoglobin Sodium Potassium Chloride Carbon Dioxide BUN Creatinine Glucose POC Glucose 179 H 213 H 223 H Hemoglobin A1c Lactic Acid Calcium Phosphorus Magnesium Iron TIBC Direct Bilirubin AST ALT Alkaline Phosphatase Total Creatine Kinase CK-MB (CK-2) C-Reactive Protein Total Protein Albumin Vitamin B12 Urine WBC (Auto) Salicylates Acetaminophen Miscellaneous Test Crossmatch 04/03/19 04/04/19 04/04/19 23:06 02:36 06:41 WBC RBC Hgb Hct MCV MCH MCHC RDW Plt Count Lymph % (Auto) [place] % (Auto) Lymph # Seg Neutrophils % Seg Neuts % (Manual) Lymphocytes % (Manual) Nucleated RBC % Seg Neutrophils # Seg Neutrophils # Man Lymphocytes # (Manual) Monocytes # (Manual) PT INR APTT D-Dimer POC ABG pH ABG pH POC ABG pCO2 POC ABG pO2 ABG pO2 ABG HCO3 ABG O2 Saturation ABG Base Excess ABG Hemoglobin VBG pH Oxyhemoglobin Sodium Potassium Chloride Carbon Dioxide BUN Creatinine Glucose POC Glucose 189 H 157 H 131 H Hemoglobin A1c Lactic Acid Calcium Phosphorus Magnesium Iron TIBC Direct Bilirubin AST ALT Alkaline Phosphatase Total Creatine Kinase CK-MB (CK-2) C-Reactive Protein Total Protein Albumin Vitamin B12 Urine WBC (Auto) Salicylates Acetaminophen Miscellaneous Test Crossmatch 04/04/19 04/04/19 04/04/19 11:42 15:45 18:21 WBC RBC Hgb Hct MCV MCH MCHC RDW Plt Count Lymph % (Auto) [place] % (Auto) Lymph # Seg Neutrophils % Seg Neuts % (Manual) Lymphocytes % (Manual) Nucleated RBC % Seg Neutrophils # Seg Neutrophils # Man Lymphocytes # (Manual) Monocytes # (Manual) PT INR APTT D-Dimer POC ABG pH ABG pH POC ABG pCO2 POC ABG pO2 ABG pO2 ABG HCO3 ABG O2 Saturation ABG Base Excess ABG Hemoglobin VBG pH Oxyhemoglobin Sodium Potassium Chloride Carbon Dioxide BUN Creatinine Glucose POC Glucose 233 H 236 H 255 H Hemoglobin A1c Lactic Acid Calcium Phosphorus Magnesium Iron TIBC Direct Bilirubin AST ALT Alkaline Phosphatase Total Creatine Kinase CK-MB (CK-2) C-Reactive Protein Total Protein Albumin Vitamin B12 Urine WBC (Auto) Salicylates Acetaminophen Miscellaneous Test Crossmatch 04/04/19 04/05/19 04/05/19 21:21 03:06 06:05 WBC RBC 2.68 L Hgb 8.5 L Hct 26.3 L MCV 98 H MCH MCHC RDW 17.4 H Plt Count Lymph % (Auto) [place] % (Auto) Lymph # Seg Neutrophils % Seg Neuts % (Manual) Lymphocytes % (Manual) Nucleated RBC % Seg Neutrophils # Seg Neutrophils # Man Lymphocytes # (Manual) Monocytes # (Manual) PT INR APTT D-Dimer POC ABG pH ABG pH POC ABG pCO2 POC ABG pO2 ABG pO2 ABG HCO3 ABG O2 Saturation ABG Base Excess ABG Hemoglobin VBG pH Oxyhemoglobin Sodium Potassium Chloride Carbon Dioxide BUN Creatinine Glucose POC Glucose 132 H 161 H Hemoglobin A1c Lactic Acid Calcium Phosphorus Magnesium Iron TIBC Direct Bilirubin AST ALT Alkaline Phosphatase Total Creatine Kinase CK-MB (CK-2) C-Reactive Protein Total Protein Albumin Vitamin B12 Urine WBC (Auto) Salicylates Acetaminophen Miscellaneous Test Crossmatch 04/05/19 04/05/19 04/05/19 06:05 06:49 10:23 WBC RBC Hgb Hct MCV MCH MCHC RDW Plt Count Lymph % (Auto) [place] % (Auto) Lymph # Seg Neutrophils % Seg Neuts % (Manual) Lymphocytes % (Manual) Nucleated RBC % Seg Neutrophils # Seg Neutrophils # Man Lymphocytes # (Manual) Monocytes # (Manual) PT INR APTT D-Dimer POC ABG pH ABG pH POC ABG pCO2 POC ABG pO2 ABG pO2 ABG HCO3 ABG O2 Saturation ABG Base Excess ABG Hemoglobin VBG pH Oxyhemoglobin Sodium Potassium Chloride 112.5 H Carbon Dioxide BUN Creatinine 0.2 L Glucose 237 H POC Glucose 283 H 296 H Hemoglobin A1c Lactic Acid Calcium 7.9 L Phosphorus Magnesium Iron TIBC Direct Bilirubin AST ALT Alkaline Phosphatase Total Creatine Kinase CK-MB (CK-2) C-Reactive Protein Total Protein Albumin Vitamin B12 Urine WBC (Auto) Salicylates Acetaminophen Miscellaneous Test Crossmatch 04/05/19 04/05/19 04/05/19 14:46 18:19 20:35 WBC RBC Hgb Hct MCV MCH MCHC RDW Plt Count Lymph % (Auto) [place] % (Auto) Lymph # Seg Neutrophils % Seg Neuts % (Manual) Lymphocytes % (Manual) Nucleated RBC % Seg Neutrophils # Seg Neutrophils # Man Lymphocytes # (Manual) Monocytes # (Manual) PT INR APTT D-Dimer POC ABG pH ABG pH POC ABG pCO2 POC ABG pO2 ABG pO2 ABG HCO3 ABG O2 Saturation ABG Base Excess ABG Hemoglobin VBG pH Oxyhemoglobin Sodium Potassium Chloride Carbon Dioxide BUN Creatinine Glucose POC Glucose 225 H 259 H 236 H Hemoglobin A1c Lactic Acid Calcium Phosphorus Magnesium Iron TIBC Direct Bilirubin AST ALT Alkaline Phosphatase Total Creatine Kinase CK-MB (CK-2) C-Reactive Protein Total Protein Albumin Vitamin B12 Urine WBC (Auto) Salicylates Acetaminophen Miscellaneous Test Crossmatch 04/05/19 04/06/19 04/06/19 23:11 00:06 03:14 WBC RBC Hgb Hct MCV MCH MCHC RDW Plt Count Lymph % (Auto) [place] % (Auto) Lymph # Seg Neutrophils % Seg Neuts % (Manual) Lymphocytes % (Manual) Nucleated RBC % Seg Neutrophils # Seg Neutrophils # Man Lymphocytes # (Manual) Monocytes # (Manual) PT INR APTT D-Dimer 4526.86 H POC ABG pH ABG pH POC ABG pCO2 POC ABG pO2 ABG pO2 ABG HCO3 ABG O2 Saturation ABG Base Excess ABG Hemoglobin VBG pH Oxyhemoglobin Sodium Potassium Chloride Carbon Dioxide BUN Creatinine Glucose POC Glucose 205 H 228 H Hemoglobin A1c Lactic Acid Calcium Phosphorus Magnesium Iron TIBC Direct Bilirubin AST ALT Alkaline Phosphatase Total Creatine Kinase CK-MB (CK-2) C-Reactive Protein Total Protein Albumin Vitamin B12 Urine WBC (Auto) Salicylates Acetaminophen Miscellaneous Test Crossmatch 04/06/19 04/06/19 04/06/19 05:20 05:20 07:57 WBC 15.1 H RBC 2.90 L Hgb 9.1 L Hct 28.0 L MCV MCH MCHC RDW 17.3 H Plt Count Lymph % (Auto) [place] % (Auto) Lymph # Seg Neutrophils % Seg Neuts % (Manual) Lymphocytes % (Manual) Nucleated RBC % Seg Neutrophils # Seg Neutrophils # Man Lymphocytes # (Manual) Monocytes # (Manual) PT INR APTT D-Dimer POC ABG pH ABG pH POC ABG pCO2 POC ABG pO2 ABG pO2 ABG HCO3 ABG O2 Saturation ABG Base Excess ABG Hemoglobin VBG pH Oxyhemoglobin Sodium Potassium Chloride Carbon Dioxide BUN Creatinine 0.2 L Glucose 161 H POC Glucose 191 H Hemoglobin A1c Lactic Acid Calcium 8.0 L Phosphorus Magnesium Iron TIBC Direct Bilirubin AST ALT Alkaline Phosphatase Total Creatine Kinase CK-MB (CK-2) C-Reactive Protein Total Protein Albumin Vitamin B12 Urine WBC (Auto) Salicylates Acetaminophen Miscellaneous Test Crossmatch 04/06/19 04/06/19 04/06/19 12:09 18:24 22:07 WBC RBC Hgb Hct MCV MCH MCHC RDW Plt Count Lymph % (Auto) [place] % (Auto) Lymph # Seg Neutrophils % Seg Neuts % (Manual) Lymphocytes % (Manual) Nucleated RBC % Seg Neutrophils # Seg Neutrophils # Man Lymphocytes # (Manual) Monocytes # (Manual) PT INR APTT D-Dimer POC ABG pH ABG pH POC ABG pCO2 POC ABG pO2 ABG pO2 ABG HCO3 ABG O2 Saturation ABG Base Excess ABG Hemoglobin VBG pH Oxyhemoglobin Sodium Potassium Chloride Carbon Dioxide BUN Creatinine Glucose POC Glucose 143 H 161 H 140 H Hemoglobin A1c Lactic Acid Calcium Phosphorus Magnesium Iron TIBC Direct Bilirubin AST ALT Alkaline Phosphatase Total Creatine Kinase CK-MB (CK-2) C-Reactive Protein Total Protein Albumin Vitamin B12 Urine WBC (Auto) Salicylates Acetaminophen Miscellaneous Test Crossmatch 04/07/19 04/07/19 04/07/19 03:00 04:30 04:30 WBC 13.0 H RBC 2.65 L Hgb 8.3 L Hct 25.5 L MCV MCH MCHC RDW 17.0 H Plt Count Lymph % (Auto) [place] % (Auto) Lymph # Seg Neutrophils % Seg Neuts % (Manual) Lymphocytes % (Manual) Nucleated RBC % Seg Neutrophils # Seg Neutrophils # Man Lymphocytes # (Manual) Monocytes # (Manual) PT INR APTT D-Dimer POC ABG pH ABG pH POC ABG pCO2 POC ABG pO2 ABG pO2 ABG HCO3 ABG O2 Saturation ABG Base Excess ABG Hemoglobin VBG pH Oxyhemoglobin Sodium Potassium Chloride Carbon Dioxide BUN Creatinine 0.2 L Glucose 208 H POC Glucose 224 H Hemoglobin A1c Lactic Acid Calcium 7.7 L Phosphorus Magnesium Iron TIBC Direct Bilirubin AST ALT Alkaline Phosphatase Total Creatine Kinase CK-MB (CK-2) C-Reactive Protein Total Protein Albumin Vitamin B12 Urine WBC (Auto) Salicylates Acetaminophen Miscellaneous Test Crossmatch 04/07/19 04/07/19 04/07/19 05:47 08:27 10:33 WBC RBC Hgb Hct MCV MCH MCHC RDW Plt Count Lymph % (Auto) [place] % (Auto) Lymph # Seg Neutrophils % Seg Neuts % (Manual) Lymphocytes % (Manual) Nucleated RBC % Seg Neutrophils # Seg Neutrophils # Man Lymphocytes # (Manual) Monocytes # (Manual) PT INR APTT D-Dimer POC ABG pH ABG pH POC ABG pCO2 POC ABG pO2 ABG pO2 ABG HCO3 ABG O2 Saturation ABG Base Excess ABG Hemoglobin VBG pH Oxyhemoglobin Sodium Potassium Chloride Carbon Dioxide BUN Creatinine Glucose POC Glucose 225 H 176 H 207 H Hemoglobin A1c Lactic Acid Calcium Phosphorus Magnesium Iron TIBC Direct Bilirubin AST ALT Alkaline Phosphatase Total Creatine Kinase CK-MB (CK-2) C-Reactive Protein Total Protein Albumin Vitamin B12 Urine WBC (Auto) Salicylates Acetaminophen Miscellaneous Test Crossmatch 04/07/19 04/07/19 04/07/19 14:13 18:32 22:42 WBC RBC Hgb Hct MCV MCH MCHC RDW Plt Count Lymph % (Auto) [place] % (Auto) Lymph # Seg Neutrophils % Seg Neuts % (Manual) Lymphocytes % (Manual) Nucleated RBC % Seg Neutrophils # Seg Neutrophils # Man Lymphocytes # (Manual) Monocytes # (Manual) PT INR APTT D-Dimer POC ABG pH ABG pH POC ABG pCO2 POC ABG pO2 ABG pO2 ABG HCO3 ABG O2 Saturation ABG Base Excess ABG Hemoglobin VBG pH Oxyhemoglobin Sodium Potassium Chloride Carbon Dioxide BUN Creatinine Glucose POC Glucose 219 H 227 H 238 H Hemoglobin A1c Lactic Acid Calcium Phosphorus Magnesium Iron TIBC Direct Bilirubin AST ALT Alkaline Phosphatase Total Creatine Kinase CK-MB (CK-2) C-Reactive Protein Total Protein Albumin Vitamin B12 Urine WBC (Auto) Salicylates Acetaminophen Miscellaneous Test Crossmatch 04/08/19 04/08/19 04/08/19 02:31 05:37 14:10 WBC RBC Hgb Hct MCV MCH MCHC RDW Plt Count Lymph % (Auto) [place] % (Auto) Lymph # Seg Neutrophils % Seg Neuts % (Manual) Lymphocytes % (Manual) Nucleated RBC % Seg Neutrophils # Seg Neutrophils # Man Lymphocytes # (Manual) Monocytes # (Manual) PT INR APTT D-Dimer POC ABG pH ABG pH POC ABG pCO2 POC ABG pO2 ABG pO2 ABG HCO3 ABG O2 Saturation ABG Base Excess ABG Hemoglobin VBG pH Oxyhemoglobin Sodium Potassium Chloride Carbon Dioxide BUN Creatinine Glucose POC Glucose 194 H 194 H 139 H Hemoglobin A1c Lactic Acid Calcium Phosphorus Magnesium Iron TIBC Direct Bilirubin AST ALT Alkaline Phosphatase Total Creatine Kinase CK-MB (CK-2) C-Reactive Protein Total Protein Albumin Vitamin B12 Urine WBC (Auto) Salicylates Acetaminophen Miscellaneous Test Crossmatch 04/08/19 04/08/19 04/09/19 17:43 23:20 03:28 WBC RBC Hgb Hct MCV MCH MCHC RDW Plt Count Lymph % (Auto) [place] % (Auto) Lymph # Seg Neutrophils % Seg Neuts % (Manual) Lymphocytes % (Manual) Nucleated RBC % Seg Neutrophils # Seg Neutrophils # Man Lymphocytes # (Manual) Monocytes # (Manual) PT INR APTT D-Dimer POC ABG pH ABG pH POC ABG pCO2 POC ABG pO2 ABG pO2 ABG HCO3 ABG O2 Saturation ABG Base Excess ABG Hemoglobin VBG pH Oxyhemoglobin Sodium Potassium Chloride Carbon Dioxide BUN Creatinine Glucose POC Glucose 261 H 277 H 301 H Hemoglobin A1c Lactic Acid Calcium Phosphorus Magnesium Iron TIBC Direct Bilirubin AST ALT Alkaline Phosphatase Total Creatine Kinase CK-MB (CK-2) C-Reactive Protein Total Protein Albumin Vitamin B12 Urine WBC (Auto) Salicylates Acetaminophen Miscellaneous Test Crossmatch 04/09/19 04/09/19 04/09/19 05:35 05:35 05:35 WBC RBC 2.78 L Hgb 9.0 L Hct 26.7 L MCV MCH MCHC RDW 17.0 H Plt Count Lymph % (Auto) [place] % (Auto) Lymph # Seg Neutrophils % Seg Neuts % (Manual) Lymphocytes % (Manual) Nucleated RBC % Seg Neutrophils # Seg Neutrophils # Man Lymphocytes # (Manual) Monocytes # (Manual) PT INR APTT D-Dimer POC ABG pH ABG pH POC ABG pCO2 POC ABG pO2 ABG pO2 ABG HCO3 ABG O2 Saturation ABG Base Excess ABG Hemoglobin VBG pH Oxyhemoglobin Sodium Potassium Chloride Carbon Dioxide 31 H BUN Creatinine 0.2 L Glucose 218 H POC Glucose 240 H Hemoglobin A1c Lactic Acid Calcium Phosphorus Magnesium Iron TIBC Direct Bilirubin AST ALT Alkaline Phosphatase Total Creatine Kinase CK-MB (CK-2) C-Reactive Protein Total Protein Albumin Vitamin B12 Urine WBC (Auto) Salicylates Acetaminophen Miscellaneous Test Crossmatch 04/09/19 04/09/19 04/09/19 09:01 12:23 17:33 WBC RBC Hgb Hct MCV MCH MCHC RDW Plt Count Lymph % (Auto) [place] % (Auto) Lymph # Seg Neutrophils % Seg Neuts % (Manual) Lymphocytes % (Manual) Nucleated RBC % Seg Neutrophils # Seg Neutrophils # Man Lymphocytes # (Manual) Monocytes # (Manual) PT INR APTT D-Dimer POC ABG pH ABG pH POC ABG pCO2 POC ABG pO2 ABG pO2 ABG HCO3 ABG O2 Saturation ABG Base Excess ABG Hemoglobin VBG pH Oxyhemoglobin Sodium Potassium Chloride Carbon Dioxide BUN Creatinine Glucose POC Glucose 160 H 162 H 149 H Hemoglobin A1c Lactic Acid Calcium Phosphorus Magnesium Iron TIBC Direct Bilirubin AST ALT Alkaline Phosphatase Total Creatine Kinase CK-MB (CK-2) C-Reactive Protein Total Protein Albumin Vitamin B12 Urine WBC (Auto) Salicylates Acetaminophen Miscellaneous Test Crossmatch 04/09/19 04/09/19 04/10/19 21:26 22:28 03:16 WBC RBC Hgb Hct MCV MCH MCHC RDW Plt Count Lymph % (Auto) [place] % (Auto) Lymph # Seg Neutrophils % Seg Neuts % (Manual) Lymphocytes % (Manual) Nucleated RBC % Seg Neutrophils # Seg Neutrophils # Man Lymphocytes # (Manual) Monocytes # (Manual) PT INR APTT D-Dimer POC ABG pH ABG pH POC ABG pCO2 POC ABG pO2 ABG pO2 ABG HCO3 ABG O2 Saturation ABG Base Excess ABG Hemoglobin VBG pH Oxyhemoglobin Sodium Potassium Chloride Carbon Dioxide BUN Creatinine Glucose POC Glucose 196 H 224 H 163 H Hemoglobin A1c Lactic Acid Calcium Phosphorus Magnesium Iron TIBC Direct Bilirubin AST ALT Alkaline Phosphatase Total Creatine Kinase CK-MB (CK-2) C-Reactive Protein Total Protein Albumin Vitamin B12 Urine WBC (Auto) Salicylates Acetaminophen Miscellaneous Test Crossmatch 04/10/19 04/10/19 04/10/19 04:15 04:15 05:30 WBC RBC 2.88 L Hgb 9.2 L Hct 27.9 L MCV MCH MCHC RDW 17.0 H Plt Count 454 H Lymph % (Auto) [place] % (Auto) Lymph # Seg Neutrophils % Seg Neuts % (Manual) Lymphocytes % (Manual) Nucleated RBC % Seg Neutrophils # Seg Neutrophils # Man Lymphocytes # (Manual) Monocytes # (Manual) PT INR APTT D-Dimer POC ABG pH ABG pH POC ABG pCO2 POC ABG pO2 ABG pO2 ABG HCO3 ABG O2 Saturation ABG Base Excess ABG Hemoglobin VBG pH Oxyhemoglobin Sodium Potassium Chloride Carbon Dioxide 32 H BUN Creatinine 0.2 L Glucose 126 H POC Glucose 135 H Hemoglobin A1c Lactic Acid Calcium Phosphorus Magnesium Iron TIBC Direct Bilirubin AST ALT Alkaline Phosphatase Total Creatine Kinase CK-MB (CK-2) C-Reactive Protein Total Protein Albumin Vitamin B12 Urine WBC (Auto) Salicylates Acetaminophen Miscellaneous Test Crossmatch 04/10/19 04/10/19 04/10/19 12:14 15:29 23:38 WBC RBC Hgb Hct MCV MCH MCHC RDW Plt Count Lymph % (Auto) [place] % (Auto) Lymph # Seg Neutrophils % Seg Neuts % (Manual) Lymphocytes % (Manual) Nucleated RBC % Seg Neutrophils # Seg Neutrophils # Man Lymphocytes # (Manual) Monocytes # (Manual) PT INR APTT D-Dimer POC ABG pH ABG pH POC ABG pCO2 POC ABG pO2 ABG pO2 ABG HCO3 ABG O2 Saturation ABG Base Excess ABG Hemoglobin VBG pH Oxyhemoglobin Sodium Potassium Chloride Carbon Dioxide BUN Creatinine Glucose POC Glucose 109 H 149 H 268 H Hemoglobin A1c Lactic Acid Calcium Phosphorus Magnesium Iron TIBC Direct Bilirubin AST ALT Alkaline Phosphatase Total Creatine Kinase CK-MB (CK-2) C-Reactive Protein Total Protein Albumin Vitamin B12 Urine WBC (Auto) Salicylates Acetaminophen Miscellaneous Test Crossmatch 04/11/19 04/11/19 04/11/19 05:27 12:08 18:08 WBC RBC Hgb Hct MCV MCH MCHC RDW Plt Count Lymph % (Auto) [place] % (Auto) Lymph # Seg Neutrophils % Seg Neuts % (Manual) Lymphocytes % (Manual) Nucleated RBC % Seg Neutrophils # Seg Neutrophils # Man Lymphocytes # (Manual) Monocytes # (Manual) PT INR APTT D-Dimer POC ABG pH ABG pH POC ABG pCO2 POC ABG pO2 ABG pO2 ABG HCO3 ABG O2 Saturation ABG Base Excess ABG Hemoglobin VBG pH Oxyhemoglobin Sodium Potassium Chloride Carbon Dioxide BUN Creatinine Glucose POC Glucose 109 H 185 H 190 H Hemoglobin A1c Lactic Acid Calcium Phosphorus Magnesium Iron TIBC Direct Bilirubin AST ALT Alkaline Phosphatase Total Creatine Kinase CK-MB (CK-2) C-Reactive Protein Total Protein Albumin Vitamin B12 Urine WBC (Auto) Salicylates Acetaminophen Miscellaneous Test Crossmatch 04/11/19 04/12/19 04/12/19 23:23 06:00 11:42 WBC RBC Hgb Hct MCV MCH MCHC RDW Plt Count Lymph % (Auto) [place] % (Auto) Lymph # Seg Neutrophils % Seg Neuts % (Manual) Lymphocytes % (Manual) Nucleated RBC % Seg Neutrophils # Seg Neutrophils # Man Lymphocytes # (Manual) Monocytes # (Manual) PT INR APTT D-Dimer POC ABG pH ABG pH POC ABG pCO2 POC ABG pO2 ABG pO2 ABG HCO3 ABG O2 Saturation ABG Base Excess ABG Hemoglobin VBG pH Oxyhemoglobin Sodium Potassium Chloride Carbon Dioxide BUN Creatinine Glucose POC Glucose 127 H 201 H 161 H Hemoglobin A1c Lactic Acid Calcium Phosphorus Magnesium Iron TIBC Direct Bilirubin AST ALT Alkaline Phosphatase Total Creatine Kinase CK-MB (CK-2) C-Reactive Protein Total Protein Albumin Vitamin B12 Urine WBC (Auto) Salicylates Acetaminophen Miscellaneous Test Crossmatch 04/12/19 04/12/19 04/12/19 17:56 20:07 21:59 WBC RBC Hgb Hct MCV MCH MCHC RDW Plt Count Lymph % (Auto) [place] % (Auto) Lymph # Seg Neutrophils % Seg Neuts % (Manual) Lymphocytes % (Manual) Nucleated RBC % Seg Neutrophils # Seg Neutrophils # Man Lymphocytes # (Manual) Monocytes # (Manual) PT INR APTT D-Dimer POC ABG pH ABG pH POC ABG pCO2 POC ABG pO2 ABG pO2 ABG HCO3 ABG O2 Saturation ABG Base Excess ABG Hemoglobin VBG pH Oxyhemoglobin Sodium Potassium Chloride Carbon Dioxide BUN Creatinine Glucose POC Glucose 145 H 158 H 203 H Hemoglobin A1c Lactic Acid Calcium Phosphorus Magnesium Iron TIBC Direct Bilirubin AST ALT Alkaline Phosphatase Total Creatine Kinase CK-MB (CK-2) C-Reactive Protein Total Protein Albumin Vitamin B12 Urine WBC (Auto) Salicylates Acetaminophen Miscellaneous Test Crossmatch 04/12/19 04/13/19 04/13/19 23:37 08:50 08:50 WBC 15.7 H RBC 3.12 L Hgb Hct 30.2 L MCV MCH 33 H MCHC RDW 18.0 H Plt Count 678 H Lymph % (Auto) [place] % (Auto) Lymph # Seg Neutrophils % Seg Neuts % (Manual) Lymphocytes % (Manual) Nucleated RBC % Seg Neutrophils # Seg Neutrophils # Man Lymphocytes # (Manual) Monocytes # (Manual) PT INR APTT D-Dimer POC ABG pH ABG pH POC ABG pCO2 POC ABG pO2 ABG pO2 ABG HCO3 ABG O2 Saturation ABG Base Excess ABG Hemoglobin VBG pH Oxyhemoglobin Sodium Potassium Chloride Carbon Dioxide BUN Creatinine < 0.2 L Glucose 46 L POC Glucose 238 H Hemoglobin A1c Lactic Acid Calcium Phosphorus Magnesium Iron TIBC Direct Bilirubin AST ALT Alkaline Phosphatase Total Creatine Kinase CK-MB (CK-2) C-Reactive Protein Total Protein Albumin Vitamin B12 Urine WBC (Auto) Salicylates Acetaminophen Miscellaneous Test Crossmatch 04/13/19 04/13/19 04/13/19 11:56 17:27 23:57 WBC RBC Hgb Hct MCV MCH MCHC RDW Plt Count Lymph % (Auto) [place] % (Auto) Lymph # Seg Neutrophils % Seg Neuts % (Manual) Lymphocytes % (Manual) Nucleated RBC % Seg Neutrophils # Seg Neutrophils # Man Lymphocytes # (Manual) Monocytes # (Manual) PT INR APTT D-Dimer POC ABG pH ABG pH POC ABG pCO2 POC ABG pO2 ABG pO2 ABG HCO3 ABG O2 Saturation ABG Base Excess ABG Hemoglobin VBG pH Oxyhemoglobin Sodium Potassium Chloride Carbon Dioxide BUN Creatinine Glucose POC Glucose 40 L 66 L 65 L Hemoglobin A1c Lactic Acid Calcium Phosphorus Magnesium Iron TIBC Direct Bilirubin AST ALT Alkaline Phosphatase Total Creatine Kinase CK-MB (CK-2) C-Reactive Protein Total Protein Albumin Vitamin B12 Urine WBC (Auto) Salicylates Acetaminophen Miscellaneous Test Crossmatch 04/14/19 04/14/19 04/14/19 05:28 08:20 08:20 WBC 17.8 H RBC 3.26 L Hgb Hct MCV 98 H MCH MCHC RDW 18.3 H Plt Count 622 H Lymph % (Auto) [place] % (Auto) Lymph # Seg Neutrophils % Seg Neuts % (Manual) Lymphocytes % (Manual) Nucleated RBC % Seg Neutrophils # Seg Neutrophils # Man Lymphocytes # (Manual) Monocytes # (Manual) PT INR APTT D-Dimer POC ABG pH ABG pH POC ABG pCO2 POC ABG pO2 ABG pO2 ABG HCO3 ABG O2 Saturation ABG Base Excess ABG Hemoglobin VBG pH Oxyhemoglobin Sodium Potassium Chloride Carbon Dioxide BUN 6 L Creatinine < 0.2 L Glucose 154 H POC Glucose 149 H Hemoglobin A1c Lactic Acid Calcium Phosphorus Magnesium Iron TIBC Direct Bilirubin AST ALT Alkaline Phosphatase Total Creatine Kinase CK-MB (CK-2) C-Reactive Protein Total Protein Albumin Vitamin B12 Urine WBC (Auto) Salicylates Acetaminophen Miscellaneous Test Crossmatch 04/14/19 04/14/19 04/14/19 12:16 17:54 23:35 WBC RBC Hgb Hct MCV MCH MCHC RDW Plt Count Lymph % (Auto) [place] % (Auto) Lymph # Seg Neutrophils % Seg Neuts % (Manual) Lymphocytes % (Manual) Nucleated RBC % Seg Neutrophils # Seg Neutrophils # Man Lymphocytes # (Manual) Monocytes # (Manual) PT INR APTT D-Dimer POC ABG pH ABG pH POC ABG pCO2 POC ABG pO2 ABG pO2 ABG HCO3 ABG O2 Saturation ABG Base Excess ABG Hemoglobin VBG pH Oxyhemoglobin Sodium Potassium Chloride Carbon Dioxide BUN Creatinine Glucose POC Glucose 176 H 224 H 173 H Hemoglobin A1c Lactic Acid Calcium Phosphorus Magnesium Iron TIBC Direct Bilirubin AST ALT Alkaline Phosphatase Total Creatine Kinase CK-MB (CK-2) C-Reactive Protein Total Protein Albumin Vitamin B12 Urine WBC (Auto) Salicylates Acetaminophen Miscellaneous Test Crossmatch 04/15/19 04/15/19 04/15/19 05:44 12:44 18:06 WBC RBC Hgb Hct MCV MCH MCHC RDW Plt Count Lymph % (Auto) [place] % (Auto) Lymph # Seg Neutrophils % Seg Neuts % (Manual) Lymphocytes % (Manual) Nucleated RBC % Seg Neutrophils # Seg Neutrophils # Man Lymphocytes # (Manual) Monocytes # (Manual) PT INR APTT D-Dimer POC ABG pH 7.461 H ABG pH POC ABG pCO2 45.5 H POC ABG pO2 ABG pO2 ABG HCO3 ABG O2 Saturation ABG Base Excess ABG Hemoglobin VBG pH Oxyhemoglobin Sodium Potassium Chloride Carbon Dioxide BUN Creatinine Glucose POC Glucose 255 H 365 H Hemoglobin A1c Lactic Acid Calcium Phosphorus Magnesium Iron TIBC Direct Bilirubin AST ALT Alkaline Phosphatase Total Creatine Kinase CK-MB (CK-2) C-Reactive Protein Total Protein Albumin Vitamin B12 Urine WBC (Auto) Salicylates Acetaminophen Miscellaneous Test Crossmatch 04/15/19 04/15/19 04/16/19 18:06 23:34 00:40 WBC RBC Hgb Hct MCV MCH MCHC RDW Plt Count Lymph % (Auto) [place] % (Auto) Lymph # Seg Neutrophils % Seg Neuts % (Manual) Lymphocytes % (Manual) Nucleated RBC % Seg Neutrophils # Seg Neutrophils # Man Lymphocytes # (Manual) Monocytes # (Manual) PT INR APTT D-Dimer POC ABG pH ABG pH POC ABG pCO2 POC ABG pO2 ABG pO2 ABG HCO3 ABG O2 Saturation ABG Base Excess ABG Hemoglobin VBG pH Oxyhemoglobin Sodium Potassium Chloride Carbon Dioxide BUN Creatinine Glucose POC Glucose 157 H 56 L 107 H Hemoglobin A1c Lactic Acid Calcium Phosphorus Magnesium Iron TIBC Direct Bilirubin AST ALT Alkaline Phosphatase Total Creatine Kinase CK-MB (CK-2) C-Reactive Protein Total Protein Albumin Vitamin B12 Urine WBC (Auto) Salicylates Acetaminophen Miscellaneous Test Crossmatch 04/16/19 04/16/19 04/16/19 09:06 09:06 11:21 WBC 12.9 H RBC 2.95 L Hgb 9.7 L Hct 28.9 L MCV 98 H MCH 33 H MCHC RDW 17.7 H Plt Count 581 H Lymph % (Auto) [place] % (Auto) Lymph # Seg Neutrophils % Seg Neuts % (Manual) Lymphocytes % (Manual) Nucleated RBC % Seg Neutrophils # Seg Neutrophils # Man Lymphocytes # (Manual) Monocytes # (Manual) PT INR APTT D-Dimer POC ABG pH ABG pH POC ABG pCO2 POC ABG pO2 ABG pO2 ABG HCO3 ABG O2 Saturation ABG Base Excess ABG Hemoglobin VBG pH Oxyhemoglobin Sodium Potassium Chloride Carbon Dioxide 31 H BUN Creatinine 0.2 L Glucose 155 H POC Glucose 184 H Hemoglobin A1c Lactic Acid Calcium Phosphorus Magnesium Iron TIBC Direct Bilirubin AST ALT Alkaline Phosphatase Total Creatine Kinase CK-MB (CK-2) C-Reactive Protein Total Protein Albumin Vitamin B12 Urine WBC (Auto) Salicylates Acetaminophen Miscellaneous Test Crossmatch 04/16/19 04/16/19 04/16/19 17:28 20:17 23:09 WBC RBC Hgb Hct MCV MCH MCHC RDW Plt Count Lymph % (Auto) [place] % (Auto) Lymph # Seg Neutrophils % Seg Neuts % (Manual) Lymphocytes % (Manual) Nucleated RBC % Seg Neutrophils # Seg Neutrophils # Man Lymphocytes # (Manual) Monocytes # (Manual) PT INR APTT D-Dimer POC ABG pH 7.479 H ABG pH POC ABG pCO2 POC ABG pO2 71 L ABG pO2 ABG HCO3 ABG O2 Saturation ABG Base Excess ABG Hemoglobin VBG pH Oxyhemoglobin Sodium Potassium Chloride Carbon Dioxide BUN Creatinine Glucose POC Glucose 173 H 178 H Hemoglobin A1c Lactic Acid Calcium Phosphorus Magnesium Iron TIBC Direct Bilirubin AST ALT Alkaline Phosphatase Total Creatine Kinase CK-MB (CK-2) C-Reactive Protein Total Protein Albumin Vitamin B12 Urine WBC (Auto) Salicylates Acetaminophen Miscellaneous Test Crossmatch 04/17/19 04/17/19 04/17/19 05:02 11:39 12:48 WBC RBC Hgb Hct MCV MCH MCHC RDW Plt Count Lymph % (Auto) [place] % (Auto) Lymph # Seg Neutrophils % Seg Neuts % (Manual) Lymphocytes % (Manual) Nucleated RBC % Seg Neutrophils # Seg Neutrophils # Man Lymphocytes # (Manual) Monocytes # (Manual) PT INR APTT D-Dimer POC ABG pH 7.557 H ABG pH POC ABG pCO2 32.8 L POC ABG pO2 149 H ABG pO2 ABG HCO3 ABG O2 Saturation ABG Base Excess ABG Hemoglobin VBG pH Oxyhemoglobin Sodium Potassium Chloride Carbon Dioxide BUN Creatinine Glucose POC Glucose 252 H 124 H Hemoglobin A1c Lactic Acid Calcium Phosphorus Magnesium Iron TIBC Direct Bilirubin AST ALT Alkaline Phosphatase Total Creatine Kinase CK-MB (CK-2) C-Reactive Protein Total Protein Albumin Vitamin B12 Urine WBC (Auto) Salicylates Acetaminophen Miscellaneous Test Crossmatch 04/17/19 04/18/19 04/18/19 23:31 05:32 11:34 WBC RBC Hgb Hct MCV MCH MCHC RDW Plt Count Lymph % (Auto) [place] % (Auto) Lymph # Seg Neutrophils % Seg Neuts % (Manual) Lymphocytes % (Manual) Nucleated RBC % Seg Neutrophils # Seg Neutrophils # Man Lymphocytes # (Manual) Monocytes # (Manual) PT INR APTT D-Dimer POC ABG pH ABG pH POC ABG pCO2 POC ABG pO2 ABG pO2 ABG HCO3 ABG O2 Saturation ABG Base Excess ABG Hemoglobin VBG pH Oxyhemoglobin Sodium Potassium Chloride Carbon Dioxide BUN Creatinine Glucose POC Glucose 149 H 334 H 344 H Hemoglobin A1c Lactic Acid Calcium Phosphorus Magnesium Iron TIBC Direct Bilirubin AST ALT Alkaline Phosphatase Total Creatine Kinase CK-MB (CK-2) C-Reactive Protein Total Protein Albumin Vitamin B12 Urine WBC (Auto) Salicylates Acetaminophen Miscellaneous Test Crossmatch 04/18/19 04/18/19 04/18/19 17:43 18:14 23:35 WBC RBC Hgb Hct MCV MCH MCHC RDW Plt Count Lymph % (Auto) [place] % (Auto) Lymph # Seg Neutrophils % Seg Neuts % (Manual) Lymphocytes % (Manual) Nucleated RBC % Seg Neutrophils # Seg Neutrophils # Man Lymphocytes # (Manual) Monocytes # (Manual) PT INR APTT D-Dimer POC ABG pH ABG pH POC ABG pCO2 49.2 H POC ABG pO2 ABG pO2 ABG HCO3 ABG O2 Saturation ABG Base Excess ABG Hemoglobin VBG pH Oxyhemoglobin Sodium Potassium Chloride Carbon Dioxide BUN Creatinine Glucose POC Glucose 289 H 312 H Hemoglobin A1c Lactic Acid Calcium Phosphorus Magnesium Iron TIBC Direct Bilirubin AST ALT Alkaline Phosphatase Total Creatine Kinase CK-MB (CK-2) C-Reactive Protein Total Protein Albumin Vitamin B12 Urine WBC (Auto) Salicylates Acetaminophen Miscellaneous Test Crossmatch 04/19/19 04/19/19 04/19/19 04:35 05:55 12:26 WBC RBC Hgb Hct MCV MCH MCHC RDW Plt Count Lymph % (Auto) [place] % (Auto) Lymph # Seg Neutrophils % Seg Neuts % (Manual) Lymphocytes % (Manual) Nucleated RBC % Seg Neutrophils # Seg Neutrophils # Man Lymphocytes # (Manual) Monocytes # (Manual) PT INR APTT D-Dimer POC ABG pH 7.565 H ABG pH POC ABG pCO2 POC ABG pO2 ABG pO2 ABG HCO3 ABG O2 Saturation ABG Base Excess ABG Hemoglobin VBG pH Oxyhemoglobin Sodium Potassium Chloride Carbon Dioxide BUN Creatinine Glucose POC Glucose 172 H 271 H Hemoglobin A1c Lactic Acid Calcium Phosphorus Magnesium Iron TIBC Direct Bilirubin AST ALT Alkaline Phosphatase Total Creatine Kinase CK-MB (CK-2) C-Reactive Protein Total Protein Albumin Vitamin B12 Urine WBC (Auto) Salicylates Acetaminophen Miscellaneous Test Crossmatch 04/19/19 04/19/19 04/19/19 17:54 21:10 23:35 WBC RBC Hgb Hct MCV MCH MCHC RDW Plt Count Lymph % (Auto) [place] % (Auto) Lymph # Seg Neutrophils % Seg Neuts % (Manual) Lymphocytes % (Manual) Nucleated RBC % Seg Neutrophils # Seg Neutrophils # Man Lymphocytes # (Manual) Monocytes # (Manual) PT INR APTT D-Dimer POC ABG pH ABG pH POC ABG pCO2 POC ABG pO2 ABG pO2 ABG HCO3 ABG O2 Saturation ABG Base Excess ABG Hemoglobin VBG pH Oxyhemoglobin Sodium Potassium Chloride Carbon Dioxide BUN Creatinine Glucose POC Glucose 229 H 189 H 131 H Hemoglobin A1c Lactic Acid Calcium Phosphorus Magnesium Iron TIBC Direct Bilirubin AST ALT Alkaline Phosphatase Total Creatine Kinase CK-MB (CK-2) C-Reactive Protein Total Protein Albumin Vitamin B12 Urine WBC (Auto) Salicylates Acetaminophen Miscellaneous Test Crossmatch 04/20/19 04/20/19 04/20/19 05:42 11:58 17:32 WBC RBC Hgb Hct MCV MCH MCHC RDW Plt Count Lymph % (Auto) [place] % (Auto) Lymph # Seg Neutrophils % Seg Neuts % (Manual) Lymphocytes % (Manual) Nucleated RBC % Seg Neutrophils # Seg Neutrophils # Man Lymphocytes # (Manual) Monocytes # (Manual) PT INR APTT D-Dimer POC ABG pH ABG pH POC ABG pCO2 POC ABG pO2 ABG pO2 ABG HCO3 ABG O2 Saturation ABG Base Excess ABG Hemoglobin VBG pH Oxyhemoglobin Sodium Potassium Chloride Carbon Dioxide BUN Creatinine Glucose POC Glucose 289 H 265 H 232 H Hemoglobin A1c Lactic Acid Calcium Phosphorus Magnesium Iron TIBC Direct Bilirubin AST ALT Alkaline Phosphatase Total Creatine Kinase CK-MB (CK-2) C-Reactive Protein Total Protein Albumin Vitamin B12 Urine WBC (Auto) Salicylates Acetaminophen Miscellaneous Test Crossmatch 04/21/19 04/21/19 04/21/19 00:02 05:13 12:41 WBC RBC Hgb Hct MCV MCH MCHC RDW Plt Count Lymph % (Auto) [place] % (Auto) Lymph # Seg Neutrophils % Seg Neuts % (Manual) Lymphocytes % (Manual) Nucleated RBC % Seg Neutrophils # Seg Neutrophils # Man Lymphocytes # (Manual) Monocytes # (Manual) PT INR APTT D-Dimer POC ABG pH ABG pH POC ABG pCO2 POC ABG pO2 ABG pO2 ABG HCO3 ABG O2 Saturation ABG Base Excess ABG Hemoglobin VBG pH Oxyhemoglobin Sodium Potassium Chloride Carbon Dioxide BUN Creatinine Glucose POC Glucose 126 H 233 H 205 H Hemoglobin A1c Lactic Acid Calcium Phosphorus Magnesium Iron TIBC Direct Bilirubin AST ALT Alkaline Phosphatase Total Creatine Kinase CK-MB (CK-2) C-Reactive Protein Total Protein Albumin Vitamin B12 Urine WBC (Auto) Salicylates Acetaminophen Miscellaneous Test Crossmatch 04/21/19 04/22/19 04/22/19 23:42 03:57 03:57 WBC 11.5 H RBC 3.44 L Hgb Hct MCV MCH MCHC RDW 16.3 H Plt Count 510 H Lymph % (Auto) [place] % (Auto) Lymph # Seg Neutrophils % Seg Neuts % (Manual) Lymphocytes % (Manual) Nucleated RBC % Seg Neutrophils # Seg Neutrophils # Man Lymphocytes # (Manual) Monocytes # (Manual) PT INR APTT D-Dimer POC ABG pH ABG pH POC ABG pCO2 POC ABG pO2 ABG pO2 ABG HCO3 ABG O2 Saturation ABG Base Excess ABG Hemoglobin VBG pH Oxyhemoglobin Sodium Potassium Chloride 96.3 L Carbon Dioxide BUN Creatinine 0.2 L Glucose 333 H POC Glucose 149 H Hemoglobin A1c Lactic Acid Calcium Phosphorus Magnesium Iron TIBC Direct Bilirubin AST 60 H ALT Alkaline Phosphatase 204 H Total Creatine Kinase CK-MB (CK-2) C-Reactive Protein Total Protein Albumin 3.1 L Vitamin B12 Urine WBC (Auto) Salicylates Acetaminophen Miscellaneous Test Crossmatch 04/22/19 04/22/19 04/22/19 05:18 12:03 18:17 WBC RBC Hgb Hct MCV MCH MCHC RDW Plt Count Lymph % (Auto) [place] % (Auto) Lymph # Seg Neutrophils % Seg Neuts % (Manual) Lymphocytes % (Manual) Nucleated RBC % Seg Neutrophils # Seg Neutrophils # Man Lymphocytes # (Manual) Monocytes # (Manual) PT INR APTT D-Dimer POC ABG pH ABG pH POC ABG pCO2 POC ABG pO2 ABG pO2 ABG HCO3 ABG O2 Saturation ABG Base Excess ABG Hemoglobin VBG pH Oxyhemoglobin Sodium Potassium Chloride Carbon Dioxide BUN Creatinine Glucose POC Glucose 345 H 308 H 169 H Hemoglobin A1c Lactic Acid Calcium Phosphorus Magnesium Iron TIBC Direct Bilirubin AST ALT Alkaline Phosphatase Total Creatine Kinase CK-MB (CK-2) C-Reactive Protein Total Protein Albumin Vitamin B12 Urine WBC (Auto) Salicylates Acetaminophen Miscellaneous Test Crossmatch 04/23/19 04/23/19 04/23/19 00:14 05:43 11:15 WBC RBC Hgb Hct MCV MCH MCHC RDW Plt Count Lymph % (Auto) [place] % (Auto) Lymph # Seg Neutrophils % Seg Neuts % (Manual) Lymphocytes % (Manual) Nucleated RBC % Seg Neutrophils # Seg Neutrophils # Man Lymphocytes # (Manual) Monocytes # (Manual) PT INR APTT D-Dimer POC ABG pH ABG pH POC ABG pCO2 POC ABG pO2 ABG pO2 ABG HCO3 ABG O2 Saturation ABG Base Excess ABG Hemoglobin VBG pH Oxyhemoglobin Sodium Potassium Chloride Carbon Dioxide BUN Creatinine Glucose POC Glucose 192 H 260 H 186 H Hemoglobin A1c Lactic Acid Calcium Phosphorus Magnesium Iron TIBC Direct Bilirubin AST ALT Alkaline Phosphatase Total Creatine Kinase CK-MB (CK-2) C-Reactive Protein Total Protein Albumin Vitamin B12 Urine WBC (Auto) Salicylates Acetaminophen Miscellaneous Test Crossmatch 04/23/19 04/23/19 04/24/19 15:44 21:30 00:09 WBC RBC Hgb Hct MCV MCH MCHC RDW Plt Count Lymph % (Auto) [place] % (Auto) Lymph # Seg Neutrophils % Seg Neuts % (Manual) Lymphocytes % (Manual) Nucleated RBC % Seg Neutrophils # Seg Neutrophils # Man Lymphocytes # (Manual) Monocytes # (Manual) PT INR APTT D-Dimer POC ABG pH ABG pH POC ABG pCO2 POC ABG pO2 ABG pO2 ABG HCO3 ABG O2 Saturation ABG Base Excess ABG Hemoglobin VBG pH Oxyhemoglobin Sodium Potassium Chloride Carbon Dioxide BUN Creatinine Glucose POC Glucose 164 H 407 H 280 H Hemoglobin A1c Lactic Acid Calcium Phosphorus Magnesium Iron TIBC Direct Bilirubin AST ALT Alkaline Phosphatase Total Creatine Kinase CK-MB (CK-2) C-Reactive Protein Total Protein Albumin Vitamin B12 Urine WBC (Auto) Salicylates Acetaminophen Miscellaneous Test Crossmatch 04/24/19 04/24/19 04/24/19 06:01 06:39 14:51 WBC RBC Hgb Hct MCV MCH MCHC RDW Plt Count Lymph % (Auto) [place] % (Auto) Lymph # Seg Neutrophils % Seg Neuts % (Manual) Lymphocytes % (Manual) Nucleated RBC % Seg Neutrophils # Seg Neutrophils # Man Lymphocytes # (Manual) Monocytes # (Manual) PT INR APTT D-Dimer POC ABG pH ABG pH POC ABG pCO2 POC ABG pO2 ABG pO2 ABG HCO3 ABG O2 Saturation ABG Base Excess ABG Hemoglobin VBG pH Oxyhemoglobin Sodium Potassium Chloride Carbon Dioxide BUN Creatinine Glucose POC Glucose 65 L 125 H 207 H Hemoglobin A1c Lactic Acid Calcium Phosphorus Magnesium Iron TIBC Direct Bilirubin AST ALT Alkaline Phosphatase Total Creatine Kinase CK-MB (CK-2) C-Reactive Protein Total Protein Albumin Vitamin B12 Urine WBC (Auto) Salicylates Acetaminophen Miscellaneous Test Crossmatch 04/24/19 04/25/19 04/25/19 18:03 01:46 05:56 WBC RBC Hgb Hct MCV MCH MCHC RDW Plt Count Lymph % (Auto) [place] % (Auto) Lymph # Seg Neutrophils % Seg Neuts % (Manual) Lymphocytes % (Manual) Nucleated RBC % Seg Neutrophils # Seg Neutrophils # Man Lymphocytes # (Manual) Monocytes # (Manual) PT INR APTT D-Dimer POC ABG pH ABG pH POC ABG pCO2 POC ABG pO2 ABG pO2 ABG HCO3 ABG O2 Saturation ABG Base Excess ABG Hemoglobin VBG pH Oxyhemoglobin Sodium Potassium Chloride Carbon Dioxide BUN Creatinine Glucose POC Glucose 140 H 125 H 208 H Hemoglobin A1c Lactic Acid Calcium Phosphorus Magnesium Iron TIBC Direct Bilirubin AST ALT Alkaline Phosphatase Total Creatine Kinase CK-MB (CK-2) C-Reactive Protein Total Protein Albumin Vitamin B12 Urine WBC (Auto) Salicylates Acetaminophen Miscellaneous Test Crossmatch 04/25/19 04/25/19 04/25/19 08:12 13:06 18:04 WBC RBC Hgb Hct MCV MCH MCHC RDW Plt Count Lymph % (Auto) [place] % (Auto) Lymph # Seg Neutrophils % Seg Neuts % (Manual) Lymphocytes % (Manual) Nucleated RBC % Seg Neutrophils # Seg Neutrophils # Man Lymphocytes # (Manual) Monocytes # (Manual) PT INR APTT D-Dimer POC ABG pH ABG pH POC ABG pCO2 POC ABG pO2 ABG pO2 ABG HCO3 ABG O2 Saturation ABG Base Excess ABG Hemoglobin VBG pH Oxyhemoglobin Sodium Potassium Chloride Carbon Dioxide BUN Creatinine Glucose POC Glucose 127 H 147 H 340 H Hemoglobin A1c Lactic Acid Calcium Phosphorus Magnesium Iron TIBC Direct Bilirubin AST ALT Alkaline Phosphatase Total Creatine Kinase CK-MB (CK-2) C-Reactive Protein Total Protein Albumin Vitamin B12 Urine WBC (Auto) Salicylates Acetaminophen Miscellaneous Test Crossmatch 04/26/19 04/26/19 04/26/19 00:16 05:15 11:26 WBC RBC Hgb Hct MCV MCH MCHC RDW Plt Count Lymph % (Auto) [place] % (Auto) Lymph # Seg Neutrophils % Seg Neuts % (Manual) Lymphocytes % (Manual) Nucleated RBC % Seg Neutrophils # Seg Neutrophils # Man Lymphocytes # (Manual) Monocytes # (Manual) PT INR APTT D-Dimer POC ABG pH ABG pH POC ABG pCO2 POC ABG pO2 ABG pO2 ABG HCO3 ABG O2 Saturation ABG Base Excess ABG Hemoglobin VBG pH Oxyhemoglobin Sodium Potassium Chloride Carbon Dioxide BUN Creatinine Glucose POC Glucose 137 H 136 H 365 H Hemoglobin A1c Lactic Acid Calcium Phosphorus Magnesium Iron TIBC Direct Bilirubin AST ALT Alkaline Phosphatase Total Creatine Kinase CK-MB (CK-2) C-Reactive Protein Total Protein Albumin Vitamin B12 Urine WBC (Auto) Salicylates Acetaminophen Miscellaneous Test Crossmatch 04/26/19 04/26/19 04/27/19 18:03 21:30 06:14 WBC RBC Hgb Hct MCV MCH MCHC RDW Plt Count Lymph % (Auto) [place] % (Auto) Lymph # Seg Neutrophils % Seg Neuts % (Manual) Lymphocytes % (Manual) Nucleated RBC % Seg Neutrophils # Seg Neutrophils # Man Lymphocytes # (Manual) Monocytes # (Manual) PT INR APTT D-Dimer POC ABG pH ABG pH POC ABG pCO2 POC ABG pO2 ABG pO2 ABG HCO3 ABG O2 Saturation ABG Base Excess ABG Hemoglobin VBG pH Oxyhemoglobin Sodium Potassium Chloride Carbon Dioxide BUN Creatinine Glucose POC Glucose 124 H 231 H 199 H Hemoglobin A1c Lactic Acid Calcium Phosphorus Magnesium Iron TIBC Direct Bilirubin AST ALT Alkaline Phosphatase Total Creatine Kinase CK-MB (CK-2) C-Reactive Protein Total Protein Albumin Vitamin B12 Urine WBC (Auto) Salicylates Acetaminophen Miscellaneous Test Crossmatch 04/27/19 04/27/19 04/28/19 16:39 22:22 05:55 WBC RBC Hgb Hct MCV MCH MCHC RDW Plt Count Lymph % (Auto) [place] % (Auto) Lymph # Seg Neutrophils % Seg Neuts % (Manual) Lymphocytes % (Manual) Nucleated RBC % Seg Neutrophils # Seg Neutrophils # Man Lymphocytes # (Manual) Monocytes # (Manual) PT INR APTT D-Dimer POC ABG pH ABG pH POC ABG pCO2 POC ABG pO2 ABG pO2 ABG HCO3 ABG O2 Saturation ABG Base Excess ABG Hemoglobin VBG pH Oxyhemoglobin Sodium Potassium Chloride Carbon Dioxide BUN Creatinine Glucose POC Glucose 171 H 183 H 207 H Hemoglobin A1c Lactic Acid Calcium Phosphorus Magnesium Iron TIBC Direct Bilirubin AST ALT Alkaline Phosphatase Total Creatine Kinase CK-MB (CK-2) C-Reactive Protein Total Protein Albumin Vitamin B12 Urine WBC (Auto) Salicylates Acetaminophen Miscellaneous Test Crossmatch 04/28/19 04/28/19 04/29/19 12:30 17:07 00:03 WBC RBC Hgb Hct MCV MCH MCHC RDW Plt Count Lymph % (Auto) [place] % (Auto) Lymph # Seg Neutrophils % Seg Neuts % (Manual) Lymphocytes % (Manual) Nucleated RBC % Seg Neutrophils # Seg Neutrophils # Man Lymphocytes # (Manual) Monocytes # (Manual) PT INR APTT D-Dimer POC ABG pH ABG pH POC ABG pCO2 POC ABG pO2 ABG pO2 ABG HCO3 ABG O2 Saturation ABG Base Excess ABG Hemoglobin VBG pH Oxyhemoglobin Sodium Potassium Chloride Carbon Dioxide BUN Creatinine Glucose POC Glucose 199 H 233 H 217 H Hemoglobin A1c Lactic Acid Calcium Phosphorus Magnesium Iron TIBC Direct Bilirubin AST ALT Alkaline Phosphatase Total Creatine Kinase CK-MB (CK-2) C-Reactive Protein Total Protein Albumin Vitamin B12 Urine WBC (Auto) Salicylates Acetaminophen Miscellaneous Test Crossmatch 04/29/19 04/29/19 04/29/19 05:51 09:43 09:43 WBC RBC 3.36 L Hgb Hct MCV MCH MCHC RDW 16.3 H Plt Count Lymph % (Auto) 11.1 L [place] % (Auto) Lymph # Seg Neutrophils % 81.4 H Seg Neuts % (Manual) Lymphocytes % (Manual) Nucleated RBC % Seg Neutrophils # 9.0 H Seg Neutrophils # Man Lymphocytes # (Manual) Monocytes # (Manual) PT INR APTT D-Dimer POC ABG pH ABG pH POC ABG pCO2 POC ABG pO2 ABG pO2 ABG HCO3 ABG O2 Saturation ABG Base Excess ABG Hemoglobin VBG pH Oxyhemoglobin Sodium Potassium Chloride Carbon Dioxide BUN 21 H Creatinine 0.3 L Glucose 316 H POC Glucose 149 H Hemoglobin A1c Lactic Acid Calcium Phosphorus Magnesium Iron TIBC Direct Bilirubin AST ALT Alkaline Phosphatase Total Creatine Kinase CK-MB (CK-2) C-Reactive Protein Total Protein Albumin Vitamin B12 Urine WBC (Auto) Salicylates Acetaminophen Miscellaneous Test Crossmatch 04/29/19 04/29/19 04/29/19 12:28 18:02 23:49 WBC RBC Hgb Hct MCV MCH MCHC RDW Plt Count Lymph % (Auto) [place] % (Auto) Lymph # Seg Neutrophils % Seg Neuts % (Manual) Lymphocytes % (Manual) Nucleated RBC % Seg Neutrophils # Seg Neutrophils # Man Lymphocytes # (Manual) Monocytes # (Manual) PT INR APTT D-Dimer POC ABG pH ABG pH POC ABG pCO2 POC ABG pO2 ABG pO2 ABG HCO3 ABG O2 Saturation ABG Base Excess ABG Hemoglobin VBG pH Oxyhemoglobin Sodium Potassium Chloride Carbon Dioxide BUN Creatinine Glucose POC Glucose 368 H 185 H 137 H Hemoglobin A1c Lactic Acid Calcium Phosphorus Magnesium Iron TIBC Direct Bilirubin AST ALT Alkaline Phosphatase Total Creatine Kinase CK-MB (CK-2) C-Reactive Protein Total Protein Albumin Vitamin B12 Urine WBC (Auto) Salicylates Acetaminophen Miscellaneous Test Crossmatch 04/30/19 04/30/19 04/30/19 05:56 09:08 09:08 WBC RBC 3.48 L Hgb Hct MCV MCH MCHC RDW 15.9 H Plt Count Lymph % (Auto) [place] % (Auto) Lymph # Seg Neutrophils % 73.7 H Seg Neuts % (Manual) Lymphocytes % (Manual) Nucleated RBC % Seg Neutrophils # Seg Neutrophils # Man Lymphocytes # (Manual) Monocytes # (Manual) PT INR APTT D-Dimer POC ABG pH ABG pH POC ABG pCO2 POC ABG pO2 ABG pO2 ABG HCO3 ABG O2 Saturation ABG Base Excess ABG Hemoglobin VBG pH Oxyhemoglobin Sodium Potassium Chloride Carbon Dioxide BUN 25 H Creatinine 0.3 L Glucose 290 H POC Glucose 318 H Hemoglobin A1c Lactic Acid Calcium Phosphorus Magnesium Iron TIBC Direct Bilirubin AST ALT Alkaline Phosphatase Total Creatine Kinase CK-MB (CK-2) C-Reactive Protein Total Protein Albumin Vitamin B12 Urine WBC (Auto) Salicylates Acetaminophen Miscellaneous Test Crossmatch 04/30/19 04/30/19 04/30/19 11:32 17:19 21:36 WBC RBC Hgb Hct MCV MCH MCHC RDW Plt Count Lymph % (Auto) [place] % (Auto) Lymph # Seg Neutrophils % Seg Neuts % (Manual) Lymphocytes % (Manual) Nucleated RBC % Seg Neutrophils # Seg Neutrophils # Man Lymphocytes # (Manual) Monocytes # (Manual) PT INR APTT D-Dimer POC ABG pH ABG pH POC ABG pCO2 POC ABG pO2 ABG pO2 ABG HCO3 ABG O2 Saturation ABG Base Excess ABG Hemoglobin VBG pH Oxyhemoglobin Sodium Potassium Chloride Carbon Dioxide BUN Creatinine Glucose POC Glucose 225 H 110 H 371 H Hemoglobin A1c Lactic Acid Calcium Phosphorus Magnesium Iron TIBC Direct Bilirubin AST ALT Alkaline Phosphatase Total Creatine Kinase CK-MB (CK-2) C-Reactive Protein Total Protein Albumin Vitamin B12 Urine WBC (Auto) Salicylates Acetaminophen Miscellaneous Test Crossmatch 04/30/19 05/01/19 05/01/19 Unknown 05:29 11:44 WBC RBC Hgb Hct MCV MCH MCHC RDW Plt Count Lymph % (Auto) [place] % (Auto) Lymph # Seg Neutrophils % Seg Neuts % (Manual) Lymphocytes % (Manual) Nucleated RBC % Seg Neutrophils # Seg Neutrophils # Man Lymphocytes # (Manual) Monocytes # (Manual) PT INR APTT D-Dimer POC ABG pH ABG pH POC ABG pCO2 POC ABG pO2 ABG pO2 ABG HCO3 ABG O2 Saturation ABG Base Excess ABG Hemoglobin VBG pH Oxyhemoglobin Sodium Potassium Chloride Carbon Dioxide BUN Creatinine Glucose POC Glucose 386 H 227 H Hemoglobin A1c Lactic Acid Calcium Phosphorus Magnesium Iron TIBC Direct Bilirubin AST ALT Alkaline Phosphatase Total Creatine Kinase CK-MB (CK-2) C-Reactive Protein Total Protein Albumin Vitamin B12 Urine WBC (Auto) 17.0 H Salicylates Acetaminophen Miscellaneous Test Crossmatch 05/02/19 05/02/19 05/03/19 05:51 11:21 00:25 WBC RBC Hgb Hct MCV MCH MCHC RDW Plt Count Lymph % (Auto) [place] % (Auto) Lymph # Seg Neutrophils % Seg Neuts % (Manual) Lymphocytes % (Manual) Nucleated RBC % Seg Neutrophils # Seg Neutrophils # Man Lymphocytes # (Manual) Monocytes # (Manual) PT INR APTT D-Dimer POC ABG pH ABG pH POC ABG pCO2 POC ABG pO2 ABG pO2 ABG HCO3 ABG O2 Saturation ABG Base Excess ABG Hemoglobin VBG pH Oxyhemoglobin Sodium Potassium Chloride Carbon Dioxide BUN Creatinine Glucose POC Glucose 280 H 191 H 262 H Hemoglobin A1c Lactic Acid Calcium Phosphorus Magnesium Iron TIBC Direct Bilirubin AST ALT Alkaline Phosphatase Total Creatine Kinase CK-MB (CK-2) C-Reactive Protein Total Protein Albumin Vitamin B12 Urine WBC (Auto) Salicylates Acetaminophen Miscellaneous Test Crossmatch 05/03/19 05/03/19 05/03/19 04:57 04:57 06:20 WBC RBC 3.45 L Hgb Hct MCV MCH MCHC RDW 15.5 H Plt Count Lymph % (Auto) [place] % (Auto) 7.6 H Lymph # Seg Neutrophils % Seg Neuts % (Manual) Lymphocytes % (Manual) Nucleated RBC % Seg Neutrophils # Seg Neutrophils # Man Lymphocytes # (Manual) Monocytes # (Manual) PT INR APTT D-Dimer POC ABG pH ABG pH POC ABG pCO2 POC ABG pO2 ABG pO2 ABG HCO3 ABG O2 Saturation ABG Base Excess ABG Hemoglobin VBG pH Oxyhemoglobin Sodium Potassium Chloride Carbon Dioxide BUN 23 H Creatinine 0.2 L Glucose 101 H POC Glucose 131 H Hemoglobin A1c Lactic Acid Calcium Phosphorus Magnesium Iron TIBC Direct Bilirubin AST ALT Alkaline Phosphatase Total Creatine Kinase CK-MB (CK-2) C-Reactive Protein Total Protein Albumin Vitamin B12 Urine WBC (Auto) Salicylates Acetaminophen Miscellaneous Test Crossmatch 05/03/19 05/04/19 05/04/19 23:58 12:05 16:56 WBC RBC Hgb Hct MCV MCH MCHC RDW Plt Count Lymph % (Auto) [place] % (Auto) Lymph # Seg Neutrophils % Seg Neuts % (Manual) Lymphocytes % (Manual) Nucleated RBC % Seg Neutrophils # Seg Neutrophils # Man Lymphocytes # (Manual) Monocytes # (Manual) PT INR APTT D-Dimer POC ABG pH ABG pH POC ABG pCO2 POC ABG pO2 ABG pO2 ABG HCO3 ABG O2 Saturation ABG Base Excess ABG Hemoglobin VBG pH Oxyhemoglobin Sodium Potassium Chloride Carbon Dioxide BUN Creatinine Glucose POC Glucose 160 H 128 H 116 H Hemoglobin A1c Lactic Acid Calcium Phosphorus Magnesium Iron TIBC Direct Bilirubin AST ALT Alkaline Phosphatase Total Creatine Kinase CK-MB (CK-2) C-Reactive Protein Total Protein Albumin Vitamin B12 Urine WBC (Auto) Salicylates Acetaminophen Miscellaneous Test Crossmatch 05/04/19 05/05/19 05/05/19 23:31 03:24 11:43 WBC RBC Hgb Hct MCV MCH MCHC RDW Plt Count Lymph % (Auto) [place] % (Auto) Lymph # Seg Neutrophils % Seg Neuts % (Manual) Lymphocytes % (Manual) Nucleated RBC % Seg Neutrophils # Seg Neutrophils # Man Lymphocytes # (Manual) Monocytes # (Manual) PT INR APTT D-Dimer POC ABG pH ABG pH POC ABG pCO2 POC ABG pO2 ABG pO2 ABG HCO3 ABG O2 Saturation ABG Base Excess ABG Hemoglobin VBG pH Oxyhemoglobin Sodium Potassium Chloride Carbon Dioxide BUN Creatinine Glucose POC Glucose 204 H 194 H 202 H Hemoglobin A1c Lactic Acid Calcium Phosphorus Magnesium Iron TIBC Direct Bilirubin AST ALT Alkaline Phosphatase Total Creatine Kinase CK-MB (CK-2) C-Reactive Protein Total Protein Albumin Vitamin B12 Urine WBC (Auto) Salicylates Acetaminophen Miscellaneous Test Crossmatch 05/05/19 05/06/19 05/06/19 21:07 05:16 17:08 WBC RBC Hgb Hct MCV MCH MCHC RDW Plt Count Lymph % (Auto) [place] % (Auto) Lymph # Seg Neutrophils % Seg Neuts % (Manual) Lymphocytes % (Manual) Nucleated RBC % Seg Neutrophils # Seg Neutrophils # Man Lymphocytes # (Manual) Monocytes # (Manual) PT INR APTT D-Dimer POC ABG pH ABG pH POC ABG pCO2 POC ABG pO2 ABG pO2 ABG HCO3 ABG O2 Saturation ABG Base Excess ABG Hemoglobin VBG pH Oxyhemoglobin Sodium Potassium Chloride Carbon Dioxide BUN Creatinine Glucose POC Glucose 128 H 239 H 64 L Hemoglobin A1c Lactic Acid Calcium Phosphorus Magnesium Iron TIBC Direct Bilirubin AST ALT Alkaline Phosphatase Total Creatine Kinase CK-MB (CK-2) C-Reactive Protein Total Protein Albumin Vitamin B12 Urine WBC (Auto) Salicylates Acetaminophen Miscellaneous Test Crossmatch 05/07/19 05/07/19 05/07/19 05:12 08:00 12:13 WBC RBC Hgb Hct MCV MCH MCHC RDW Plt Count Lymph % (Auto) [place] % (Auto) Lymph # Seg Neutrophils % Seg Neuts % (Manual) Lymphocytes % (Manual) Nucleated RBC % Seg Neutrophils # Seg Neutrophils # Man Lymphocytes # (Manual) Monocytes # (Manual) PT INR APTT D-Dimer POC ABG pH ABG pH POC ABG pCO2 POC ABG pO2 ABG pO2 ABG HCO3 ABG O2 Saturation ABG Base Excess ABG Hemoglobin VBG pH Oxyhemoglobin Sodium Potassium Chloride Carbon Dioxide BUN Creatinine Glucose POC Glucose 315 H 193 H 129 H Hemoglobin A1c Lactic Acid Calcium Phosphorus Magnesium Iron TIBC Direct Bilirubin AST ALT Alkaline Phosphatase Total Creatine Kinase CK-MB (CK-2) C-Reactive Protein Total Protein Albumin Vitamin B12 Urine WBC (Auto) Salicylates Acetaminophen Miscellaneous Test Crossmatch 05/07/19 05/07/19 05/08/19 17:00 22:58 00:38 WBC RBC Hgb Hct MCV MCH MCHC RDW Plt Count Lymph % (Auto) [place] % (Auto) Lymph # Seg Neutrophils % Seg Neuts % (Manual) Lymphocytes % (Manual) Nucleated RBC % Seg Neutrophils # Seg Neutrophils # Man Lymphocytes # (Manual) Monocytes # (Manual) PT INR APTT D-Dimer POC ABG pH ABG pH POC ABG pCO2 POC ABG pO2 ABG pO2 ABG HCO3 ABG O2 Saturation ABG Base Excess ABG Hemoglobin VBG pH Oxyhemoglobin Sodium Potassium Chloride Carbon Dioxide BUN Creatinine Glucose POC Glucose 331 H 341 H 369 H Hemoglobin A1c Lactic Acid Calcium Phosphorus Magnesium Iron TIBC Direct Bilirubin AST ALT Alkaline Phosphatase Total Creatine Kinase CK-MB (CK-2) C-Reactive Protein Total Protein Albumin Vitamin B12 Urine WBC (Auto) Salicylates Acetaminophen Miscellaneous Test Crossmatch 05/08/19 05/08/19 05/08/19 06:06 07:58 12:38 WBC RBC Hgb Hct MCV MCH MCHC RDW Plt Count Lymph % (Auto) [place] % (Auto) Lymph # Seg Neutrophils % Seg Neuts % (Manual) Lymphocytes % (Manual) Nucleated RBC % Seg Neutrophils # Seg Neutrophils # Man Lymphocytes # (Manual) Monocytes # (Manual) PT INR APTT D-Dimer POC ABG pH ABG pH POC ABG pCO2 POC ABG pO2 ABG pO2 ABG HCO3 ABG O2 Saturation ABG Base Excess ABG Hemoglobin VBG pH Oxyhemoglobin Sodium Potassium Chloride Carbon Dioxide BUN Creatinine Glucose POC Glucose 191 H 165 H 296 H Hemoglobin A1c Lactic Acid Calcium Phosphorus Magnesium Iron TIBC Direct Bilirubin AST ALT Alkaline Phosphatase Total Creatine Kinase CK-MB (CK-2) C-Reactive Protein Total Protein Albumin Vitamin B12 Urine WBC (Auto) Salicylates Acetaminophen Miscellaneous Test Crossmatch 05/08/19 05/08/19 05/09/19 18:02 21:56 00:18 WBC RBC Hgb Hct MCV MCH MCHC RDW Plt Count Lymph % (Auto) [place] % (Auto) Lymph # Seg Neutrophils % Seg Neuts % (Manual) Lymphocytes % (Manual) Nucleated RBC % Seg Neutrophils # Seg Neutrophils # Man Lymphocytes # (Manual) Monocytes # (Manual) PT INR APTT D-Dimer POC ABG pH ABG pH POC ABG pCO2 POC ABG pO2 ABG pO2 ABG HCO3 ABG O2 Saturation ABG Base Excess ABG Hemoglobin VBG pH Oxyhemoglobin Sodium Potassium Chloride Carbon Dioxide BUN Creatinine Glucose POC Glucose 247 H 212 H 182 H Hemoglobin A1c Lactic Acid Calcium Phosphorus Magnesium Iron TIBC Direct Bilirubin AST ALT Alkaline Phosphatase Total Creatine Kinase CK-MB (CK-2) C-Reactive Protein Total Protein Albumin Vitamin B12 Urine WBC (Auto) Salicylates Acetaminophen Miscellaneous Test Crossmatch 05/09/19 05/09/19 05/09/19 04:30 04:30 04:30 WBC RBC Hgb Hct MCV MCH MCHC RDW Plt Count Lymph % (Auto) [place] % (Auto) 10.1 H Lymph # Seg Neutrophils % Seg Neuts % (Manual) Lymphocytes % (Manual) Nucleated RBC % Seg Neutrophils # Seg Neutrophils # Man Lymphocytes # (Manual) Monocytes # (Manual) PT INR APTT D-Dimer POC ABG pH ABG pH POC ABG pCO2 POC ABG pO2 ABG pO2 ABG HCO3 ABG O2 Saturation ABG Base Excess ABG Hemoglobin VBG pH Oxyhemoglobin Sodium Potassium Chloride Carbon Dioxide BUN 19 H Creatinine 0.2 L Glucose 108 H POC Glucose Hemoglobin A1c 6.3 H Lactic Acid Calcium Phosphorus Magnesium Iron TIBC Direct Bilirubin AST ALT Alkaline Phosphatase Total Creatine Kinase CK-MB (CK-2) C-Reactive Protein Total Protein Albumin Vitamin B12 Urine WBC (Auto) Salicylates Acetaminophen Miscellaneous Test Crossmatch 05/09/19 05/09/19 05/09/19 05:27 11:52 17:43 WBC RBC Hgb Hct MCV MCH MCHC RDW Plt Count Lymph % (Auto) [place] % (Auto) Lymph # Seg Neutrophils % Seg Neuts % (Manual) Lymphocytes % (Manual) Nucleated RBC % Seg Neutrophils # Seg Neutrophils # Man Lymphocytes # (Manual) Monocytes # (Manual) PT INR APTT D-Dimer POC ABG pH ABG pH POC ABG pCO2 POC ABG pO2 ABG pO2 ABG HCO3 ABG O2 Saturation ABG Base Excess ABG Hemoglobin VBG pH Oxyhemoglobin Sodium Potassium Chloride Carbon Dioxide BUN Creatinine Glucose POC Glucose 115 H 171 H 113 H Hemoglobin A1c Lactic Acid Calcium Phosphorus Magnesium Iron TIBC Direct Bilirubin AST ALT Alkaline Phosphatase Total Creatine Kinase CK-MB (CK-2) C-Reactive Protein Total Protein Albumin Vitamin B12 Urine WBC (Auto) Salicylates Acetaminophen Miscellaneous Test Crossmatch 05/09/19 05/10/19 05/10/19 23:53 06:30 11:39 WBC RBC Hgb Hct MCV MCH MCHC RDW Plt Count Lymph % (Auto) [place] % (Auto) Lymph # Seg Neutrophils % Seg Neuts % (Manual) Lymphocytes % (Manual) Nucleated RBC % Seg Neutrophils # Seg Neutrophils # Man Lymphocytes # (Manual) Monocytes # (Manual) PT INR APTT D-Dimer POC ABG pH ABG pH POC ABG pCO2 POC ABG pO2 ABG pO2 ABG HCO3 ABG O2 Saturation ABG Base Excess ABG Hemoglobin VBG pH Oxyhemoglobin Sodium Potassium Chloride Carbon Dioxide BUN Creatinine Glucose POC Glucose 274 H 160 H 150 H Hemoglobin A1c Lactic Acid Calcium Phosphorus Magnesium Iron TIBC Direct Bilirubin AST ALT Alkaline Phosphatase Total Creatine Kinase CK-MB (CK-2) C-Reactive Protein Total Protein Albumin Vitamin B12 Urine WBC (Auto) Salicylates Acetaminophen Miscellaneous Test Crossmatch 05/10/19 05/11/19 05/11/19 16:45 00:25 06:40 WBC RBC Hgb Hct MCV MCH MCHC RDW Plt Count Lymph % (Auto) [place] % (Auto) Lymph # Seg Neutrophils % Seg Neuts % (Manual) Lymphocytes % (Manual) Nucleated RBC % Seg Neutrophils # Seg Neutrophils # Man Lymphocytes # (Manual) Monocytes # (Manual) PT INR APTT D-Dimer POC ABG pH ABG pH POC ABG pCO2 POC ABG pO2 ABG pO2 ABG HCO3 ABG O2 Saturation ABG Base Excess ABG Hemoglobin VBG pH Oxyhemoglobin Sodium Potassium Chloride Carbon Dioxide BUN Creatinine Glucose POC Glucose 176 H 114 H 63 L Hemoglobin A1c Lactic Acid Calcium Phosphorus Magnesium Iron TIBC Direct Bilirubin AST ALT Alkaline Phosphatase Total Creatine Kinase CK-MB (CK-2) C-Reactive Protein Total Protein Albumin Vitamin B12 Urine WBC (Auto) Salicylates Acetaminophen Miscellaneous Test Crossmatch 05/11/19 05/11/19 05/11/19 12:18 17:00 23:46 WBC RBC Hgb Hct MCV MCH MCHC RDW Plt Count Lymph % (Auto) [place] % (Auto) Lymph # Seg Neutrophils % Seg Neuts % (Manual) Lymphocytes % (Manual) Nucleated RBC % Seg Neutrophils # Seg Neutrophils # Man Lymphocytes # (Manual) Monocytes # (Manual) PT INR APTT D-Dimer POC ABG pH ABG pH POC ABG pCO2 POC ABG pO2 ABG pO2 ABG HCO3 ABG O2 Saturation ABG Base Excess ABG Hemoglobin VBG pH Oxyhemoglobin Sodium Potassium Chloride Carbon Dioxide BUN Creatinine Glucose POC Glucose 142 H 192 H 286 H Hemoglobin A1c Lactic Acid Calcium Phosphorus Magnesium Iron TIBC Direct Bilirubin AST ALT Alkaline Phosphatase Total Creatine Kinase CK-MB (CK-2) C-Reactive Protein Total Protein Albumin Vitamin B12 Urine WBC (Auto) Salicylates Acetaminophen Miscellaneous Test Crossmatch 05/12/19 05:05 WBC RBC Hgb Hct MCV MCH MCHC RDW Plt Count Lymph % (Auto) [place] % (Auto) Lymph # Seg Neutrophils % Seg Neuts % (Manual) Lymphocytes % (Manual) Nucleated RBC % Seg Neutrophils # Seg Neutrophils # Man Lymphocytes # (Manual) Monocytes # (Manual) PT INR APTT D-Dimer POC ABG pH ABG pH POC ABG pCO2 POC ABG pO2 ABG pO2 ABG HCO3 ABG O2 Saturation ABG Base Excess ABG Hemoglobin VBG pH Oxyhemoglobin Sodium Potassium Chloride Carbon Dioxide BUN Creatinine Glucose POC Glucose 174 H Hemoglobin A1c Lactic Acid Calcium Phosphorus Magnesium Iron TIBC Direct Bilirubin AST ALT Alkaline Phosphatase Total Creatine Kinase CK-MB (CK-2) C-Reactive Protein Total Protein Albumin Vitamin B12 Urine WBC (Auto) Salicylates Acetaminophen Miscellaneous Test Crossmatch
--- NOTE | 2019-05-12 14:27 | Progress Note ---
Assessment and Plan Uncontrolled DM type 1 with hyperglycemia - cont. basal insulin Lantus - cont. SSI - adjust insulin dose as needed to prevent hypo/hyperglycemia Acute respiratory failure s/p intubated, off vent - s/p trach and peg, on 5 L of oxygen - Tracheostomy re-adjusted on 04/17/19 - Pulm following, on nebs - Aspiration precautions Acute anoxic encephalopathy, POA - from cardiac arrest - MR concerning for anoxic Brain injury Cardiac arrest s/p resuscitation - likely 2/2 severe hyperglycemia - preserved EF on 2D echo Generalized Anasacara, stable now -Given a dose of Bumex s/p severe DKA, resolved - BG was 2200 on admission Shock hypotensive +/- sepsis - resolved Now off pressors. Was on vasopressin, Levophed, Phenylephrine Sepsis with possible aspiration PNA - evident on CXR on admission with left sided infiltrates - Competed abx - Leucocytosis and thrombocytosis are likely reactive from hepatic subcapsular hematoma -liver lesion not consistent with infection per ID UTI, Patient had low-grade temp 04/30/19 -UA suggestive of UTI -Urine culture showed enterococcus faecalis, and hanks sensitive. -Patient started on Rocephin on 05/01/19 - completed Head lice - multiple dosing of Permethin given, resolved Acute renal failure, likely vasomotor nephropathy - resolved Anemia, acute on chronic - no sign of blood loss - s/p 2 Units PRBC transfused Hyperkalemia, resolved with fluid and insulin Hypernatremia Resolved hypokalemia, resolved Shock liver with elevated LFT and Coagulopathy - due to cardiac arrest and hypotension - cont to monitor Liver lesion - ID Physician following - Discontinued abx, not consistent with infection as noted above Hypermagnesemia - monitor levels as needed Hyperphosphatemia -cont to monitor, improved Stage 1 sacral ulcer, poa - upper ext blisters - pressure ulcer prevention strategies - wound care VTE Prophylaxis with Lovenox Poor prognosis DNR status Disposition: continue inpatient care, await placement in [place], [place] service desk manager in contact with the family for 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 Her last well-known time was 10:30 in the morning of presentation, she was traveling with a friend, she was unresponsive in the back seat. EMS was called, CPR was started and continued here in the emergency room. Patient was intubated in the ER, noted hypotensive started on dobutamine, epinephrine and Levophed drip, given IV fluids, found to be in DKA with BG ~2200, several metabolic derangements - placed on insulin drip and admitted to ICU. BP improved and she was weaned off pressors. Pt off pressors and extubated. Transferred to floor awaiting placement Subjective Date of service: 05/12/19 Principal diagnosis: Ac Hypoxemic Resp Failure; DKA; Severe sepsis with shock; ANGELICA Interval history: Patient seen and examined Patient remained on trach with t-piece no family members around, nonverbal and doesnot follow commend discussed with RN at bedside with plan of care Objective - Constitutional Vitals: Vital Signs - 12hr 05/12/19 05/12/19 05/12/19 04:44 04:45 05:00 Temperature 97.5 F L Pulse Rate 113 H Respiratory 16 Rate Blood Pressure 124/91 O2 Sat by Pulse 98 97 Oximetry O2 Sat by Pulse 97 Oximetry [ Assessment] 05/12/19 05/12/19 09:05 09:32 Temperature Pulse Rate 122 H Respiratory Rate Blood Pressure 123/86 O2 Sat by Pulse Oximetry O2 Sat by Pulse 96 Oximetry [ Assessment] - Labs CBC & Chem 7: 05/09/19 04:30 05/09/19 04:30 Labs: Abnormal lab results 05/11/19 05/11/19 05/12/19 Range/Units 17:00 23:46 05:05 POC Glucose 192 H 286 H 174 H (70-105)
[2019-05-12] MEDS: LANTUS SUB-Q SCH (22:30)
[2019-05-13] MEDS: HumaLOG SUB-Q SCH ×4 (00:07→17:51)
[2019-05-13] MEDS: KEPPRA PO SCH ×2 (09:53→22:39)
[2019-05-13] MEDS: ENOXAPARIN SUB-Q SCH (09:53)
[2019-05-13] MEDS: ROBINUL FEEDTUBE SCH ×3 (09:53→22:39)
[2019-05-13] MEDS: PEPCID PO SCH ×2 (09:54→22:39)
[2019-05-13] MEDS: METOPROLOL PO SCH ×2 (09:54→22:40)
--- NOTE | 2019-05-13 10:42 | Progress Note ---
Assessment and Plan Uncontrolled DM type 1 with hyperglycemia - cont. basal insulin Lantus - cont. SSI - adjust insulin dose as needed to prevent hypo/hyperglycemia Acute respiratory failure s/p intubated, off vent - s/p trach and peg, on 5 L of oxygen - Tracheostomy re-adjusted on 04/17/19 - Pulm following, on nebs - Aspiration precautions Acute anoxic encephalopathy, POA - from cardiac arrest - MR concerning for anoxic Brain injury Cardiac arrest s/p resuscitation - likely 2/2 severe hyperglycemia - preserved EF on 2D echo Generalized Anasacara, stable now -Given a dose of Bumex s/p severe DKA, resolved - BG was 2200 on admission Shock hypotensive +/- sepsis - resolved Now off pressors. Was on vasopressin, Levophed, Phenylephrine Sepsis with possible aspiration PNA - evident on CXR on admission with left sided infiltrates - Competed abx - Leucocytosis and thrombocytosis are likely reactive from hepatic subcapsular hematoma -liver lesion not consistent with infection per ID UTI, Patient had low-grade temp 04/30/19 -UA suggestive of UTI -Urine culture showed enterococcus faecalis, and hanks sensitive. -Patient started on Rocephin on 05/01/19 - completed Head lice - multiple dosing of Permethin given, resolved Acute renal failure, likely vasomotor nephropathy - resolved Anemia, acute on chronic - no sign of blood loss - s/p 2 Units PRBC transfused Hyperkalemia, resolved with fluid and insulin Hypernatremia Resolved hypokalemia, resolved Shock liver with elevated LFT and Coagulopathy - due to cardiac arrest and hypotension - cont to monitor Liver lesion - ID Physician following - Discontinued abx, not consistent with infection as noted above Hypermagnesemia - monitor levels as needed Hyperphosphatemia -cont to monitor, improved Stage 1 sacral ulcer, poa - upper ext blisters - pressure ulcer prevention strategies - wound care VTE Prophylaxis with Lovenox Poor prognosis DNR status Disposition: continue inpatient care, await placement in [place], [place] procedure manager in contact with the family for 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 Her last well-known time was 10:30 in the morning of presentation, she was traveling with a friend, she was unresponsive in the back seat. EMS was called, CPR was started and continued here in the emergency room. Patient was intubated in the ER, noted hypotensive started on dobutamine, epinephrine and Levophed drip, given IV fluids, found to be in DKA with BG ~2200, several metabolic derangements - placed on insulin drip and admitted to ICU. BP improved and she was weaned off pressors. Pt off pressors and extubated. Transferred to floor awaiting placement Subjective Date of service: 05/13/19 Principal diagnosis: Ac Hypoxemic Resp Failure; DKA; Severe sepsis with shock; ANGELICA Interval history: Patient seen and examined Patient remained on trach with t-piece no family members around, nonverbal and doesnot follow commend discussed with RN at bedside with plan of care Objective - Constitutional Vitals: Vital Signs - 12hr 05/12/19 05/13/19 05/13/19 23:28 05:08 08:17 Temperature 99.0 F 97.9 F Pulse Rate 111 H 119 H Respiratory 18 20 Rate Blood Pressure 121/79 117/82 O2 Sat by Pulse 100 93 97 Oximetry O2 Sat by Pulse 97 Oximetry [ Assessment] 05/13/19 09:54 Temperature Pulse Rate 119 H Respiratory Rate Blood Pressure 120/80 O2 Sat by Pulse Oximetry O2 Sat by Pulse Oximetry [ Assessment] - Labs CBC & Chem 7: 05/09/19 04:30 05/09/19 04:30 Labs: Abnormal lab results 05/12/19 05/12/19 05/12/19 Range/Units 11:48 17:28 23:41 POC Glucose 235 H 410 H 176 H (70-105) 05/13/19 Range/Units 05:15 POC Glucose 148 H (70-105)
--- NOTE | 2019-05-13 12:57 | Progress Note ---
Assessment and Plan Acute toxic metabolic encephalopathy. Diabetic ketoacidosis. Severe sepsis with shock. Possible aspiration pneumonia. History of polysubstance abuse. Leukocytosis. Elevated serum transaminases, possible shock liver. Hyponatremia related to her severe hyperglycemia. Anemia that is macrocytic. History of seizure disorder. Severe metabolic acidosis. Acute kidney injury, possibly on chronic - resume modafinil - continues awaiting placement - continue to wean supplemental O2 to keep O2 sats > 90% (FiO2 remains at 28% now) - continue scopolamine patch for secretion control - prn CXR's and ABG's at this point - continue bronchodilators with pulmonary hygiene per RT - continue to follow mental status closely - follow clinically off AB's - continue enteral nutrition with glucerna and adjust rate per costume shop manager - VTE prophylaxis - Stress ulcer prophylaxis - continue accuchecks with glycemic control per SSI for target blood glucose 140-180 mg/dL - continue Keppra for seizures - continue mobility protocols / off loading for pressure ulcer prevention - continue Seizure precautions - fall precautions - neuro-checks per RN - continue other care per attending / other consultants CONDITION: IMPROVED PROGNOSIS: GUARDED CODE STATUS: DNR/DNI Subjective Date of service: 05/13/19 Principal diagnosis: Ac Hypoxemic Resp Failure; DKA; Severe sepsis with shock; ANGELICA Interval history: Patient is seen today for: Acute Hypoxemic Resp Failure; Ac toxic metabolic encephalopathy; DKA; Severe sepsis with shock; Possible aspiration pneumonia; History of polysubstance abuse; History of seizure disorder; Acute kidney injury, possibly on chronic Seen and examined at bedside; 24hour events reviewed; nursing and respiratory care staff consulted; no adverse overnight events reported to me; resting peacefully in bed; Objective Vital Signs - 12hr 05/13/19 05/13/19 05/13/19 05:08 08:17 09:54 Temperature 97.9 F Pulse Rate 119 H 119 H Respiratory 20 Rate Blood Pressure 117/82 120/80 O2 Sat by Pulse 93 97 Oximetry O2 Sat by Pulse 97 Oximetry [ Assessment] Constitutional: no acute distress, other (Patient awake. Not following comman ds.) Eyes: non-icteric ENT: oropharynx moist Neck: supple, no lymphadenopathy, no JVD, other (midline trach tube) Effort: normal Ascultation: Bilateral: clear, diminished breath sounds, rhonchi (scant) Percussion: Bilateral: not dull Cardiovascular: regular rate and rhythm, other (S1,S2) Gastrointestinal: normoactive bowel sounds, soft, non-tender, non-distended, other (PEG tube) Integumentary: normal Extremities: no cyanosis, no edema, pink and warm, pulses normal, no ischemia or petechiae Neurologic: unable to assess (awake, alert, not obeying commands) Psychiatric: other (unable to assess) CBC and BMP: 05/09/19 04:30 05/09/19 04:30 ABG, PT/INR, D-dimer: ABG POC ABG pH 7.565 (7.35-7.45) H 04/19/19 04:35 ABG pH 7.396 pH Units (7.350-7.450) 04/03/19 05:35 POC ABG pCO2 36.2 (35-45) 04/19/19 04:35 ABG pCO2 32.2 mm Hg 04/03/19 05:35 POC ABG pO2 88 (80-105) 04/19/19 04:35 ABG pO2 97.7 mm Hg (80.0-90.0) H 04/03/19 05:35 POC ABG HCO3 32.8 (22-26 mml/L) 04/19/19 04:35 POC ABG Total CO2 34 (23-27mmol/L) 04/19/19 04:35 POC ABG O2 Sat 98 04/19/19 04:35 ABG O2 Saturation 97.6 % (95.0-99.0) 04/03/19 05:35 PT/INR, D-dimer PT 13.9 Sec. (12.2-14.9) 04/01/19 17:14 INR 1.10 (0.87-1.13) 04/01/19 17:14 D-Dimer 4526.86 ng/mlDDU (0-234) H 04/06/19 00:06 Abnormal lab findings: Abnormal Labs 03/29/19 03/29/19 03/29/19 19:11 19:20 19:20 WBC 26.7 H RBC 2.52 L Hgb 8.1 L Hct MCV 148 H MCH MCHC 22 L RDW 18.5 H Plt Count Lymph % (Auto) [place] % (Auto) Lymph # Seg Neutrophils % Seg Neuts % (Manual) 82.0 H Lymphocytes % (Manual) 7.0 L Nucleated RBC % Seg Neutrophils # Seg Neutrophils # Man 21.9 H Lymphocytes # (Manual) Monocytes # (Manual) 1.9 H PT 21.8 H INR 1.95 H APTT 74.5 H* D-Dimer POC ABG pH ABG pH POC ABG pCO2 POC ABG pO2 ABG pO2 ABG HCO3 ABG O2 Saturation ABG Base Excess ABG Hemoglobin VBG pH Oxyhemoglobin Sodium Potassium Chloride Carbon Dioxide BUN Creatinine Glucose POC Glucose > 500 H Hemoglobin A1c Lactic Acid Calcium Phosphorus Magnesium Iron TIBC Direct Bilirubin AST ALT Alkaline Phosphatase Total Creatine Kinase CK-MB (CK-2) C-Reactive Protein Total Protein Albumin Vitamin B12 Urine WBC (Auto) Salicylates Acetaminophen Miscellaneous Test Crossmatch 03/29/19 03/29/19 03/29/19 19:20 19:47 20:59 WBC RBC Hgb Hct MCV MCH MCHC RDW Plt Count Lymph % (Auto) [place] % (Auto) Lymph # Seg Neutrophils % Seg Neuts % (Manual) Lymphocytes % (Manual) Nucleated RBC % Seg Neutrophils # Seg Neutrophils # Man Lymphocytes # (Manual) Monocytes # (Manual) PT INR APTT D-Dimer POC ABG pH 6.892 L ABG pH POC ABG pCO2 POC ABG pO2 236 H ABG pO2 ABG HCO3 ABG O2 Saturation ABG Base Excess ABG Hemoglobin VBG pH 6.800 L* Oxyhemoglobin Sodium 118 L* Potassium 9.0 H* Chloride 64.5 L Carbon Dioxide 7 L* BUN 53 H Creatinine 2.1 H Glucose 2196 H* POC Glucose Hemoglobin A1c Lactic Acid Calcium 12.4 H* Phosphorus Magnesium Iron TIBC Direct Bilirubin AST 3900 H ALT 1034 H Alkaline Phosphatase 316 H Total Creatine Kinase CK-MB (CK-2) C-Reactive Protein Total Protein 5.1 L Albumin 2.8 L Vitamin B12 Urine WBC (Auto) Salicylates Acetaminophen Miscellaneous Test Crossmatch 03/29/19 03/29/19 03/29/19 22:45 22:45 22:45 WBC RBC Hgb Hct MCV MCH MCHC RDW Plt Count Lymph % (Auto) [place] % (Auto) Lymph # Seg Neutrophils % Seg Neuts % (Manual) Lymphocytes % (Manual) Nucleated RBC % Seg Neutrophils # Seg Neutrophils # Man Lymphocytes # (Manual) Monocytes # (Manual) PT INR APTT D-Dimer POC ABG pH ABG pH POC ABG pCO2 POC ABG pO2 ABG pO2 ABG HCO3 ABG O2 Saturation ABG Base Excess ABG Hemoglobin VBG pH Oxyhemoglobin Sodium 132 L D Potassium 7.0 H* Chloride 84.3 L Carbon Dioxide 3 L* BUN 48 H Creatinine 1.8 H Glucose 1779 H* POC Glucose Hemoglobin A1c Lactic Acid Calcium Phosphorus 21.70 H Magnesium 4.70 H Iron TIBC Direct Bilirubin AST ALT Alkaline Phosphatase Total Creatine Kinase 363 H CK-MB (CK-2) C-Reactive Protein Total Protein Albumin Vitamin B12 Urine WBC (Auto) Salicylates Acetaminophen Miscellaneous Test Crossmatch 03/29/19 03/29/19 03/30/19 Unknown Unknown 00:11 WBC RBC Hgb Hct MCV MCH MCHC RDW Plt Count Lymph % (Auto) [place] % (Auto) Lymph # Seg Neutrophils % Seg Neuts % (Manual) Lymphocytes % (Manual) Nucleated RBC % Seg Neutrophils # Seg Neutrophils # Man Lymphocytes # (Manual) Monocytes # (Manual) PT INR APTT D-Dimer POC ABG pH ABG pH POC ABG pCO2 POC ABG pO2 ABG pO2 ABG HCO3 ABG O2 Saturation ABG Base Excess ABG Hemoglobin VBG pH Oxyhemoglobin Sodium 122 L Potassium 7.9 H* 6.4 H* Chloride 75.3 L 89.7 L Carbon Dioxide 3 L* 12 L D BUN 52 H 46 H Creatinine 2.0 H 1.7 H Glucose 2043 H* 1591 H* POC Glucose Hemoglobin A1c Lactic Acid Calcium 7.8 L Phosphorus 19.30 H Magnesium 3.90 H Iron TIBC Direct Bilirubin AST ALT Alkaline Phosphatase Total Creatine Kinase CK-MB (CK-2) C-Reactive Protein Total Protein Albumin Vitamin B12 Urine WBC (Auto) Salicylates Acetaminophen Miscellaneous Test Crossmatch 03/30/19 03/30/19 03/30/19 00:11 02:14 02:14 WBC RBC Hgb Hct MCV MCH MCHC RDW Plt Count Lymph % (Auto) [place] % (Auto) Lymph # Seg Neutrophils % Seg Neuts % (Manual) Lymphocytes % (Manual) Nucleated RBC % Seg Neutrophils # Seg Neutrophils # Man Lymphocytes # (Manual) Monocytes # (Manual) PT INR APTT D-Dimer POC ABG pH ABG pH POC ABG pCO2 POC ABG pO2 ABG pO2 ABG HCO3 ABG O2 Saturation ABG Base Excess ABG Hemoglobin VBG pH Oxyhemoglobin Sodium Potassium Chloride Carbon Dioxide 9 L* BUN 45 H Creatinine 1.7 H Glucose 1155 H* POC Glucose Hemoglobin A1c Lactic Acid Calcium 7.9 L Phosphorus 10.90 H D 5.30 H D Magnesium 3.10 H 2.90 H Iron TIBC Direct Bilirubin AST ALT Alkaline Phosphatase Total Creatine Kinase CK-MB (CK-2) C-Reactive Protein Total Protein Albumin Vitamin B12 Urine WBC (Auto) Salicylates Acetaminophen Miscellaneous Test Crossmatch 03/30/19 03/30/19 03/30/19 03:15 03:30 04:23 WBC 18.0 H RBC 2.31 L Hgb 7.3 L Hct 23.8 L D MCV 103 H MCH MCHC RDW 17.1 H Plt Count Lymph % (Auto) [place] % (Auto) Lymph # Seg Neutrophils % Seg Neuts % (Manual) 79.0 H Lymphocytes % (Manual) Nucleated RBC % Seg Neutrophils # Seg Neutrophils # Man 14.2 H Lymphocytes # (Manual) Monocytes # (Manual) PT INR APTT D-Dimer POC ABG pH 7.251 L ABG pH POC ABG pCO2 POC ABG pO2 156 H ABG pO2 ABG HCO3 ABG O2 Saturation ABG Base Excess ABG Hemoglobin VBG pH Oxyhemoglobin Sodium Potassium Chloride Carbon Dioxide BUN Creatinine Glucose POC Glucose Hemoglobin A1c Lactic Acid Calcium Phosphorus Magnesium Iron TIBC Direct Bilirubin AST ALT Alkaline Phosphatase Total Creatine Kinase CK-MB (CK-2) C-Reactive Protein Total Protein Albumin Vitamin B12 Urine WBC (Auto) Salicylates Acetaminophen Miscellaneous Test Crossmatch See Detail 03/30/19 03/30/19 03/30/19 05:26 05:26 10:38 WBC RBC Hgb Hct MCV MCH MCHC RDW Plt Count Lymph % (Auto) [place] % (Auto) Lymph # Seg Neutrophils % Seg Neuts % (Manual) Lymphocytes % (Manual) Nucleated RBC % Seg Neutrophils # Seg Neutrophils # Man Lymphocytes # (Manual) Monocytes # (Manual) PT INR APTT D-Dimer POC ABG pH ABG pH POC ABG pCO2 POC ABG pO2 ABG pO2 ABG HCO3 ABG O2 Saturation ABG Base Excess ABG Hemoglobin VBG pH Oxyhemoglobin Sodium 158 H D Potassium 3.5 L Chloride 109.3 H Carbon Dioxide 19 L D BUN 40 H Creatinine 1.5 H Glucose 760 H* POC Glucose 380 H Hemoglobin A1c Lactic Acid Calcium 7.3 L Phosphorus Magnesium 2.60 H Iron TIBC Direct Bilirubin AST 76343 H ALT 2156 H Alkaline Phosphatase 271 H Total Creatine Kinase 2465 H CK-MB (CK-2) 52.7 H C-Reactive Protein Total Protein 4.5 L Albumin 2.4 L Vitamin B12 Urine WBC (Auto) Salicylates Acetaminophen Miscellaneous Test Crossmatch 03/30/19 03/30/19 03/30/19 11:08 12:25 12:57 WBC RBC Hgb Hct MCV MCH MCHC RDW Plt Count Lymph % (Auto) [place] % (Auto) Lymph # Seg Neutrophils % Seg Neuts % (Manual) Lymphocytes % (Manual) Nucleated RBC % Seg Neutrophils # Seg Neutrophils # Man Lymphocytes # (Manual) Monocytes # (Manual) PT INR APTT D-Dimer POC ABG pH ABG pH POC ABG pCO2 POC ABG pO2 ABG pO2 ABG HCO3 ABG O2 Saturation ABG Base Excess ABG Hemoglobin VBG pH Oxyhemoglobin Sodium 156 H Potassium 3.2 L Chloride 116.4 H Carbon Dioxide 21 L BUN 37 H Creatinine Glucose 162 H POC Glucose 263 H 196 H Hemoglobin A1c Lactic Acid Calcium 7.2 L Phosphorus Magnesium Iron TIBC Direct Bilirubin AST ALT Alkaline Phosphatase Total Creatine Kinase CK-MB (CK-2) C-Reactive Protein Total Protein Albumin Vitamin B12 Urine WBC (Auto) Salicylates Acetaminophen Miscellaneous Test Crossmatch 03/30/19 03/30/19 03/30/19 12:57 12:57 12:57 WBC RBC Hgb Hct MCV MCH MCHC RDW Plt Count Lymph % (Auto) [place] % (Auto) Lymph # Seg Neutrophils % Seg Neuts % (Manual) Lymphocytes % (Manual) Nucleated RBC % Seg Neutrophils # Seg Neutrophils # Man Lymphocytes # (Manual) Monocytes # (Manual) PT 21.0 H INR 1.86 H APTT D-Dimer POC ABG pH ABG pH POC ABG pCO2 POC ABG pO2 ABG pO2 ABG HCO3 ABG O2 Saturation ABG Base Excess ABG Hemoglobin VBG pH Oxyhemoglobin Sodium Potassium Chloride Carbon Dioxide BUN Creatinine Glucose POC Glucose Hemoglobin A1c Lactic Acid 9.00 H* Calcium Phosphorus Magnesium Iron TIBC Direct Bilirubin AST ALT Alkaline Phosphatase Total Creatine Kinase CK-MB (CK-2) C-Reactive Protein 2.40 H Total Protein Albumin Vitamin B12 Urine WBC (Auto) Salicylates Acetaminophen Miscellaneous Test Crossmatch 03/30/19 03/30/19 03/30/19 13:23 14:00 14:47 WBC RBC Hgb Hct MCV MCH MCHC RDW Plt Count Lymph % (Auto) [place] % (Auto) Lymph # Seg Neutrophils % Seg Neuts % (Manual) Lymphocytes % (Manual) Nucleated RBC % Seg Neutrophils # Seg Neutrophils # Man Lymphocytes # (Manual) Monocytes # (Manual) PT INR APTT D-Dimer POC ABG pH ABG pH POC ABG pCO2 POC ABG pO2 ABG pO2 ABG HCO3 ABG O2 Saturation ABG Base Excess ABG Hemoglobin VBG pH Oxyhemoglobin Sodium Potassium Chloride Carbon Dioxide BUN Creatinine Glucose POC Glucose 176 H 245 H Hemoglobin A1c Lactic Acid Calcium Phosphorus Magnesium Iron TIBC Direct Bilirubin AST ALT Alkaline Phosphatase Total Creatine Kinase CK-MB (CK-2) C-Reactive Protein Total Protein Albumin Vitamin B12 Urine WBC (Auto) Salicylates Acetaminophen Miscellaneous Test Flexitest 1 H Crossmatch 03/30/19 03/30/19 03/30/19 16:11 17:11 17:46 WBC RBC Hgb Hct MCV MCH MCHC RDW Plt Count Lymph % (Auto) [place] % (Auto) Lymph # Seg Neutrophils % Seg Neuts % (Manual) Lymphocytes % (Manual) Nucleated RBC % Seg Neutrophils # Seg Neutrophils # Man Lymphocytes # (Manual) Monocytes # (Manual) PT INR APTT D-Dimer POC ABG pH ABG pH POC ABG pCO2 POC ABG pO2 ABG pO2 ABG HCO3 ABG O2 Saturation ABG Base Excess ABG Hemoglobin VBG pH Oxyhemoglobin Sodium Potassium Chloride Carbon Dioxide BUN Creatinine Glucose POC Glucose 181 H 167 H 125 H Hemoglobin A1c Lactic Acid Calcium Phosphorus Magnesium Iron TIBC Direct Bilirubin AST ALT Alkaline Phosphatase Total Creatine Kinase CK-MB (CK-2) C-Reactive Protein Total Protein Albumin Vitamin B12 Urine WBC (Auto) Salicylates Acetaminophen Miscellaneous Test Crossmatch 03/30/19 03/30/19 03/30/19 18:59 21:31 22:19 WBC RBC Hgb Hct MCV MCH MCHC RDW Plt Count Lymph % (Auto) [place] % (Auto) Lymph # Seg Neutrophils % Seg Neuts % (Manual) Lymphocytes % (Manual) Nucleated RBC % Seg Neutrophils # Seg Neutrophils # Man Lymphocytes # (Manual) Monocytes # (Manual) PT INR APTT D-Dimer POC ABG pH ABG pH POC ABG pCO2 POC ABG pO2 ABG pO2 ABG HCO3 ABG O2 Saturation ABG Base Excess ABG Hemoglobin VBG pH Oxyhemoglobin Sodium Potassium Chloride Carbon Dioxide BUN Creatinine Glucose POC Glucose 140 H 166 H 115 H Hemoglobin A1c Lactic Acid Calcium Phosphorus Magnesium Iron TIBC Direct Bilirubin AST ALT Alkaline Phosphatase Total Creatine Kinase CK-MB (CK-2) C-Reactive Protein Total Protein Albumin Vitamin B12 Urine WBC (Auto) Salicylates Acetaminophen Miscellaneous Test Crossmatch 03/30/19 03/30/19 03/30/19 23:13 Unknown Unknown WBC RBC Hgb Hct MCV MCH MCHC RDW Plt Count Lymph % (Auto) [place] % (Auto) Lymph # Seg Neutrophils % Seg Neuts % (Manual) Lymphocytes % (Manual) Nucleated RBC % Seg Neutrophils # Seg Neutrophils # Man Lymphocytes # (Manual) Monocytes # (Manual) PT INR APTT D-Dimer POC ABG pH ABG pH POC ABG pCO2 POC ABG pO2 ABG pO2 47.8 L ABG HCO3 18.8 L ABG O2 Saturation 83.8 L ABG Base Excess -5.4 L ABG Hemoglobin 6.8 L VBG pH Oxyhemoglobin 81.8 L Sodium 157 H Potassium 3.3 L Chloride 117.9 H Carbon Dioxide 20 L BUN 36 H Creatinine Glucose 150 H POC Glucose 112 H Hemoglobin A1c Lactic Acid Calcium 7.2 L Phosphorus Magnesium Iron TIBC Direct Bilirubin AST ALT Alkaline Phosphatase Total Creatine Kinase CK-MB (CK-2) C-Reactive Protein Total Protein Albumin Vitamin B12 Urine WBC (Auto) Salicylates Acetaminophen Miscellaneous Test Crossmatch 03/30/19 03/30/19 03/31/19 Unknown Unknown 00:03 WBC RBC Hgb Hct MCV MCH MCHC RDW Plt Count Lymph % (Auto) [place] % (Auto) Lymph # Seg Neutrophils % Seg Neuts % (Manual) Lymphocytes % (Manual) Nucleated RBC % Seg Neutrophils # Seg Neutrophils # Man Lymphocytes # (Manual) Monocytes # (Manual) PT INR APTT D-Dimer POC ABG pH ABG pH POC ABG pCO2 POC ABG pO2 ABG pO2 ABG HCO3 ABG O2 Saturation ABG Base Excess ABG Hemoglobin VBG pH Oxyhemoglobin Sodium Potassium Chloride Carbon Dioxide BUN Creatinine Glucose POC Glucose 188 H Hemoglobin A1c Lactic Acid Calcium Phosphorus Magnesium Iron TIBC Direct Bilirubin AST ALT Alkaline Phosphatase Total Creatine Kinase CK-MB (CK-2) C-Reactive Protein Total Protein Albumin Vitamin B12 Urine WBC (Auto) Salicylates 0.8 L Acetaminophen < 5.0 L Miscellaneous Test Crossmatch 03/31/19 03/31/19 03/31/19 01:18 03:07 03:50 WBC RBC Hgb Hct MCV MCH MCHC RDW Plt Count Lymph % (Auto) [place] % (Auto) Lymph # Seg Neutrophils % Seg Neuts % (Manual) Lymphocytes % (Manual) Nucleated RBC % Seg Neutrophils # Seg Neutrophils # Man Lymphocytes # (Manual) Monocytes # (Manual) PT INR APTT D-Dimer POC ABG pH ABG pH 7.525 H POC ABG pCO2 POC ABG pO2 ABG pO2 178.0 H ABG HCO3 19.5 L ABG O2 Saturation 99.2 H ABG Base Excess -3.1 L ABG Hemoglobin 5.8 L VBG pH Oxyhemoglobin Sodium Potassium Chloride Carbon Dioxide BUN Creatinine Glucose POC Glucose 114 H 107 H Hemoglobin A1c Lactic Acid Calcium Phosphorus Magnesium Iron TIBC Direct Bilirubin AST ALT Alkaline Phosphatase Total Creatine Kinase CK-MB (CK-2) C-Reactive Protein Total Protein Albumin Vitamin B12 Urine WBC (Auto) Salicylates Acetaminophen Miscellaneous Test Crossmatch 03/31/19 03/31/19 03/31/19 03:51 03:51 04:05 WBC RBC 1.89 L Hgb 6.1 L Hct 18.2 L* MCV MCH MCHC RDW 17.7 H Plt Count 89 L Lymph % (Auto) [place] % (Auto) Lymph # Seg Neutrophils % Seg Neuts % (Manual) 86.0 H Lymphocytes % (Manual) 10.0 L Nucleated RBC % 1.0 H Seg Neutrophils # Seg Neutrophils # Man Lymphocytes # (Manual) 0.7 L Monocytes # (Manual) PT INR APTT D-Dimer POC ABG pH ABG pH POC ABG pCO2 POC ABG pO2 ABG pO2 ABG HCO3 ABG O2 Saturation ABG Base Excess ABG Hemoglobin VBG pH Oxyhemoglobin Sodium 151 H Potassium 3.2 L Chloride 119.4 H Carbon Dioxide 17 L BUN 35 H Creatinine Glucose 139 H POC Glucose 153 H Hemoglobin A1c Lactic Acid Calcium 7.1 L Phosphorus Magnesium Iron TIBC Direct Bilirubin AST ALT Alkaline Phosphatase Total Creatine Kinase CK-MB (CK-2) C-Reactive Protein Total Protein Albumin Vitamin B12 Urine WBC (Auto) Salicylates Acetaminophen Miscellaneous Test Crossmatch 03/31/19 03/31/19 03/31/19 05:05 05:35 06:23 WBC RBC Hgb Hct MCV MCH MCHC RDW Plt Count Lymph % (Auto) [place] % (Auto) Lymph # Seg Neutrophils % Seg Neuts % (Manual) Lymphocytes % (Manual) Nucleated RBC % Seg Neutrophils # Seg Neutrophils # Man Lymphocytes # (Manual) Monocytes # (Manual) PT INR APTT D-Dimer POC ABG pH ABG pH POC ABG pCO2 POC ABG pO2 ABG pO2 ABG HCO3 ABG O2 Saturation ABG Base Excess ABG Hemoglobin VBG pH Oxyhemoglobin Sodium Potassium Chloride Carbon Dioxide BUN Creatinine Glucose POC Glucose 176 H 133 H Hemoglobin A1c Lactic Acid 3.20 H* Calcium Phosphorus Magnesium Iron TIBC Direct Bilirubin AST ALT Alkaline Phosphatase Total Creatine Kinase CK-MB (CK-2) C-Reactive Protein Total Protein Albumin Vitamin B12 Urine WBC (Auto) Salicylates Acetaminophen Miscellaneous Test Crossmatch 03/31/19 03/31/19 03/31/19 07:50 07:51 08:20 WBC RBC Hgb Hct MCV MCH MCHC RDW Plt Count Lymph % (Auto) [place] % (Auto) Lymph # Seg Neutrophils % Seg Neuts % (Manual) Lymphocytes % (Manual) Nucleated RBC % Seg Neutrophils # Seg Neutrophils # Man Lymphocytes # (Manual) Monocytes # (Manual) PT INR APTT D-Dimer POC ABG pH ABG pH POC ABG pCO2 POC ABG pO2 ABG pO2 ABG HCO3 ABG O2 Saturation ABG Base Excess ABG Hemoglobin VBG pH Oxyhemoglobin Sodium Potassium Chloride Carbon Dioxide BUN Creatinine Glucose POC Glucose 135 H Hemoglobin A1c Lactic Acid 3.30 H* Calcium Phosphorus Magnesium Iron 26 L TIBC 193 L Direct Bilirubin AST ALT Alkaline Phosphatase Total Creatine Kinase CK-MB (CK-2) C-Reactive Protein Total Protein Albumin Vitamin B12 Urine WBC (Auto) Salicylates Acetaminophen Miscellaneous Test Crossmatch 03/31/19 03/31/19 03/31/19 08:20 08:20 09:06 WBC RBC Hgb Hct MCV MCH MCHC RDW Plt Count Lymph % (Auto) [place] % (Auto) Lymph # Seg Neutrophils % Seg Neuts % (Manual) Lymphocytes % (Manual) Nucleated RBC % Seg Neutrophils # Seg Neutrophils # Man Lymphocytes # (Manual) Monocytes # (Manual) PT INR APTT D-Dimer POC ABG pH ABG pH POC ABG pCO2 POC ABG pO2 ABG pO2 ABG HCO3 ABG O2 Saturation ABG Base Excess ABG Hemoglobin VBG pH Oxyhemoglobin Sodium 153 H Potassium 3.0 L Chloride 118.9 H Carbon Dioxide 18 L BUN 37 H Creatinine Glucose 132 H POC Glucose 145 H Hemoglobin A1c Lactic Acid Calcium 7.1 L Phosphorus Magnesium Iron TIBC Direct Bilirubin AST ALT Alkaline Phosphatase Total Creatine Kinase CK-MB (CK-2) C-Reactive Protein Total Protein Albumin Vitamin B12 > 2000 H Urine WBC (Auto) Salicylates Acetaminophen Miscellaneous Test Crossmatch 03/31/19 03/31/19 03/31/19 10:47 11:49 13:04 WBC RBC Hgb Hct MCV MCH MCHC RDW Plt Count Lymph % (Auto) [place] % (Auto) Lymph # Seg Neutrophils % Seg Neuts % (Manual) Lymphocytes % (Manual) Nucleated RBC % Seg Neutrophils # Seg Neutrophils # Man Lymphocytes # (Manual) Monocytes # (Manual) PT INR APTT D-Dimer POC ABG pH ABG pH POC ABG pCO2 POC ABG pO2 ABG pO2 ABG HCO3 ABG O2 Saturation ABG Base Excess ABG Hemoglobin VBG pH Oxyhemoglobin Sodium Potassium Chloride Carbon Dioxide BUN Creatinine Glucose POC Glucose 153 H 174 H 214 H Hemoglobin A1c Lactic Acid Calcium Phosphorus Magnesium Iron TIBC Direct Bilirubin AST ALT Alkaline Phosphatase Total Creatine Kinase CK-MB (CK-2) C-Reactive Protein Total Protein Albumin Vitamin B12 Urine WBC (Auto) Salicylates Acetaminophen Miscellaneous Test Crossmatch 03/31/19 03/31/19 03/31/19 13:42 15:08 16:08 WBC RBC Hgb Hct MCV MCH MCHC RDW Plt Count Lymph % (Auto) [place] % (Auto) Lymph # Seg Neutrophils % Seg Neuts % (Manual) Lymphocytes % (Manual) Nucleated RBC % Seg Neutrophils # Seg Neutrophils # Man Lymphocytes # (Manual) Monocytes # (Manual) PT INR APTT D-Dimer POC ABG pH ABG pH POC ABG pCO2 POC ABG pO2 ABG pO2 ABG HCO3 ABG O2 Saturation ABG Base Excess ABG Hemoglobin VBG pH Oxyhemoglobin Sodium Potassium Chloride Carbon Dioxide BUN Creatinine Glucose POC Glucose 186 H 136 H 150 H Hemoglobin A1c Lactic Acid Calcium Phosphorus Magnesium Iron TIBC Direct Bilirubin AST ALT Alkaline Phosphatase Total Creatine Kinase CK-MB (CK-2) C-Reactive Protein Total Protein Albumin Vitamin B12 Urine WBC (Auto) Salicylates Acetaminophen Miscellaneous Test Crossmatch 03/31/19 03/31/19 03/31/19 17:11 17:30 17:30 WBC RBC Hgb 7.7 L Hct 23.0 L MCV MCH MCHC RDW Plt Count Lymph % (Auto) [place] % (Auto) Lymph # Seg Neutrophils % Seg Neuts % (Manual) Lymphocytes % (Manual) Nucleated RBC % Seg Neutrophils # Seg Neutrophils # Man Lymphocytes # (Manual) Monocytes # (Manual) PT INR APTT D-Dimer POC ABG pH ABG pH POC ABG pCO2 POC ABG pO2 ABG pO2 ABG HCO3 ABG O2 Saturation ABG Base Excess ABG Hemoglobin VBG pH Oxyhemoglobin Sodium 153 H Potassium 3.5 L Chloride 119.3 H Carbon Dioxide 20 L BUN 34 H Creatinine Glucose 162 H POC Glucose 140 H Hemoglobin A1c Lactic Acid Calcium 7.6 L Phosphorus Magnesium Iron TIBC Direct Bilirubin AST ALT Alkaline Phosphatase Total Creatine Kinase CK-MB (CK-2) C-Reactive Protein Total Protein Albumin Vitamin B12 Urine WBC (Auto) Salicylates Acetaminophen Miscellaneous Test Crossmatch 03/31/19 03/31/19 03/31/19 17:59 18:58 20:28 WBC RBC Hgb Hct MCV MCH MCHC RDW Plt Count Lymph % (Auto) [place] % (Auto) Lymph # Seg Neutrophils % Seg Neuts % (Manual) Lymphocytes % (Manual) Nucleated RBC % Seg Neutrophils # Seg Neutrophils # Man Lymphocytes # (Manual) Monocytes # (Manual) PT INR APTT D-Dimer POC ABG pH ABG pH POC ABG pCO2 POC ABG pO2 ABG pO2 ABG HCO3 ABG O2 Saturation ABG Base Excess ABG Hemoglobin VBG pH Oxyhemoglobin Sodium Potassium Chloride Carbon Dioxide BUN Creatinine Glucose POC Glucose 156 H 152 H 138 H Hemoglobin A1c Lactic Acid Calcium Phosphorus Magnesium Iron TIBC Direct Bilirubin AST ALT Alkaline Phosphatase Total Creatine Kinase CK-MB (CK-2) C-Reactive Protein Total Protein Albumin Vitamin B12 Urine WBC (Auto) Salicylates Acetaminophen Miscellaneous Test Crossmatch 03/31/19 03/31/19 03/31/19 21:09 22:15 23:10 WBC RBC Hgb Hct MCV MCH MCHC RDW Plt Count Lymph % (Auto) [place] % (Auto) Lymph # Seg Neutrophils % Seg Neuts % (Manual) Lymphocytes % (Manual) Nucleated RBC % Seg Neutrophils # Seg Neutrophils # Man Lymphocytes # (Manual) Monocytes # (Manual) PT INR APTT D-Dimer POC ABG pH ABG pH POC ABG pCO2 POC ABG pO2 ABG pO2 ABG HCO3 ABG O2 Saturation ABG Base Excess ABG Hemoglobin VBG pH Oxyhemoglobin Sodium Potassium Chloride Carbon Dioxide BUN Creatinine Glucose POC Glucose 136 H 137 H 148 H Hemoglobin A1c Lactic Acid Calcium Phosphorus Magnesium Iron TIBC Direct Bilirubin AST ALT Alkaline Phosphatase Total Creatine Kinase CK-MB (CK-2) C-Reactive Protein Total Protein Albumin Vitamin B12 Urine WBC (Auto) Salicylates Acetaminophen Miscellaneous Test Crossmatch 04/01/19 04/01/19 04/01/19 00:05 01:17 02:11 WBC RBC Hgb Hct MCV MCH MCHC RDW Plt Count Lymph % (Auto) [place] % (Auto) Lymph # Seg Neutrophils % Seg Neuts % (Manual) Lymphocytes % (Manual) Nucleated RBC % Seg Neutrophils # Seg Neutrophils # Man Lymphocytes # (Manual) Monocytes # (Manual) PT INR APTT D-Dimer POC ABG pH ABG pH POC ABG pCO2 POC ABG pO2 ABG pO2 ABG HCO3 ABG O2 Saturation ABG Base Excess ABG Hemoglobin VBG pH Oxyhemoglobin Sodium Potassium Chloride Carbon Dioxide BUN Creatinine Glucose POC Glucose 143 H 151 H 155 H Hemoglobin A1c Lactic Acid Calcium Phosphorus Magnesium Iron TIBC Direct Bilirubin AST ALT Alkaline Phosphatase Total Creatine Kinase CK-MB (CK-2) C-Reactive Protein Total Protein Albumin Vitamin B12 Urine WBC (Auto) Salicylates Acetaminophen Miscellaneous Test Crossmatch 04/01/19 04/01/19 04/01/19 03:12 04:03 04:16 WBC RBC Hgb Hct MCV MCH MCHC RDW Plt Count Lymph % (Auto) [place] % (Auto) Lymph # Seg Neutrophils % Seg Neuts % (Manual) Lymphocytes % (Manual) Nucleated RBC % Seg Neutrophils # Seg Neutrophils # Man Lymphocytes # (Manual) Monocytes # (Manual) PT INR APTT D-Dimer POC ABG pH ABG pH POC ABG pCO2 POC ABG pO2 ABG pO2 ABG HCO3 ABG O2 Saturation ABG Base Excess ABG Hemoglobin VBG pH Oxyhemoglobin Sodium Potassium Chloride Carbon Dioxide BUN Creatinine Glucose POC Glucose 140 H 143 H 142 H Hemoglobin A1c Lactic Acid Calcium Phosphorus Magnesium Iron TIBC Direct Bilirubin AST ALT Alkaline Phosphatase Total Creatine Kinase CK-MB (CK-2) C-Reactive Protein Total Protein Albumin Vitamin B12 Urine WBC (Auto) Salicylates Acetaminophen Miscellaneous Test Crossmatch 04/01/19 04/01/19 04/01/19 05:01 05:01 05:08 WBC RBC 2.05 L Hgb 6.8 L Hct 20.5 L MCV 100 H MCH 33 H MCHC RDW 17.7 H Plt Count 53 L Lymph % (Auto) [place] % (Auto) Lymph # Seg Neutrophils % Seg Neuts % (Manual) 71.0 H Lymphocytes % (Manual) Nucleated RBC % Seg Neutrophils # Seg Neutrophils # Man Lymphocytes # (Manual) Monocytes # (Manual) PT INR APTT D-Dimer POC ABG pH ABG pH POC ABG pCO2 POC ABG pO2 ABG pO2 ABG HCO3 ABG O2 Saturation ABG Base Excess ABG Hemoglobin VBG pH Oxyhemoglobin Sodium Potassium Chloride Carbon Dioxide BUN Creatinine Glucose POC Glucose 119 H Hemoglobin A1c Lactic Acid Calcium Phosphorus Magnesium Iron TIBC Direct Bilirubin 0.3 H AST 4601 H ALT 1542 H Alkaline Phosphatase 185 H Total Creatine Kinase CK-MB (CK-2) C-Reactive Protein Total Protein 3.8 L Albumin 1.6 L Vitamin B12 Urine WBC (Auto) Salicylates Acetaminophen Miscellaneous Test Crossmatch 04/01/19 04/01/19 04/01/19 05:23 06:37 08:15 WBC RBC Hgb Hct MCV MCH MCHC RDW Plt Count Lymph % (Auto) [place] % (Auto) Lymph # Seg Neutrophils % Seg Neuts % (Manual) Lymphocytes % (Manual) Nucleated RBC % Seg Neutrophils # Seg Neutrophils # Man Lymphocytes # (Manual) Monocytes # (Manual) PT INR APTT D-Dimer POC ABG pH ABG pH POC ABG pCO2 POC ABG pO2 ABG pO2 ABG HCO3 ABG O2 Saturation ABG Base Excess ABG Hemoglobin VBG pH Oxyhemoglobin Sodium Potassium Chloride Carbon Dioxide BUN Creatinine Glucose POC Glucose 115 H 124 H 138 H Hemoglobin A1c Lactic Acid Calcium Phosphorus Magnesium Iron TIBC Direct Bilirubin AST ALT Alkaline Phosphatase Total Creatine Kinase CK-MB (CK-2) C-Reactive Protein Total Protein Albumin Vitamin B12 Urine WBC (Auto) Salicylates Acetaminophen Miscellaneous Test Crossmatch 04/01/19 04/01/19 04/01/19 09:50 10:10 10:31 WBC RBC Hgb 6.5 L Hct 19.2 L* MCV MCH MCHC RDW Plt Count Lymph % (Auto) [place] % (Auto) Lymph # Seg Neutrophils % Seg Neuts % (Manual) Lymphocytes % (Manual) Nucleated RBC % Seg Neutrophils # Seg Neutrophils # Man Lymphocytes # (Manual) Monocytes # (Manual) PT INR APTT D-Dimer POC ABG pH ABG pH POC ABG pCO2 POC ABG pO2 ABG pO2 ABG HCO3 ABG O2 Saturation ABG Base Excess ABG Hemoglobin VBG pH Oxyhemoglobin Sodium 149 H Potassium 3.5 L Chloride 119.9 H Carbon Dioxide 21 L BUN 33 H Creatinine 0.5 L Glucose 142 H POC Glucose 185 H Hemoglobin A1c Lactic Acid Calcium 7.3 L Phosphorus Magnesium Iron TIBC Direct Bilirubin AST 3686 H ALT 1440 H Alkaline Phosphatase 185 H Total Creatine Kinase CK-MB (CK-2) C-Reactive Protein Total Protein 3.7 L Albumin 1.8 L Vitamin B12 Urine WBC (Auto) Salicylates Acetaminophen Miscellaneous Test Crossmatch 04/01/19 04/01/19 04/01/19 11:35 13:05 14:35 WBC RBC Hgb Hct MCV MCH MCHC RDW Plt Count Lymph % (Auto) [place] % (Auto) Lymph # Seg Neutrophils % Seg Neuts % (Manual) Lymphocytes % (Manual) Nucleated RBC % Seg Neutrophils # Seg Neutrophils # Man Lymphocytes # (Manual) Monocytes # (Manual) PT INR APTT D-Dimer POC ABG pH ABG pH POC ABG pCO2 POC ABG pO2 ABG pO2 ABG HCO3 ABG O2 Saturation ABG Base Excess ABG Hemoglobin VBG pH Oxyhemoglobin Sodium Potassium Chloride Carbon Dioxide BUN Creatinine Glucose POC Glucose 201 H 169 H 134 H Hemoglobin A1c Lactic Acid Calcium Phosphorus Magnesium Iron TIBC Direct Bilirubin AST ALT Alkaline Phosphatase Total Creatine Kinase CK-MB (CK-2) C-Reactive Protein Total Protein Albumin Vitamin B12 Urine WBC (Auto) Salicylates Acetaminophen Miscellaneous Test Crossmatch 04/01/19 04/01/19 04/01/19 17:13 17:14 18:30 WBC RBC Hgb Hct MCV MCH MCHC RDW Plt Count Lymph % (Auto) [place] % (Auto) Lymph # Seg Neutrophils % Seg Neuts % (Manual) Lymphocytes % (Manual) Nucleated RBC % Seg Neutrophils # Seg Neutrophils # Man Lymphocytes # (Manual) Monocytes # (Manual) PT INR APTT D-Dimer 5203.68 H POC ABG pH ABG pH POC ABG pCO2 POC ABG pO2 ABG pO2 ABG HCO3 ABG O2 Saturation ABG Base Excess ABG Hemoglobin VBG pH Oxyhemoglobin Sodium Potassium Chloride Carbon Dioxide BUN Creatinine Glucose POC Glucose 69 L 128 H Hemoglobin A1c Lactic Acid Calcium Phosphorus Magnesium Iron TIBC Direct Bilirubin AST ALT Alkaline Phosphatase Total Creatine Kinase CK-MB (CK-2) C-Reactive Protein Total Protein Albumin Vitamin B12 Urine WBC (Auto) Salicylates Acetaminophen Miscellaneous Test Crossmatch 04/01/19 04/01/19 04/02/19 22:50 Unknown 03:40 WBC RBC Hgb Hct MCV MCH MCHC RDW Plt Count Lymph % (Auto) [place] % (Auto) Lymph # Seg Neutrophils % Seg Neuts % (Manual) Lymphocytes % (Manual) Nucleated RBC % Seg Neutrophils # Seg Neutrophils # Man Lymphocytes # (Manual) Monocytes # (Manual) PT INR APTT D-Dimer POC ABG pH ABG pH POC ABG pCO2 POC ABG pO2 ABG pO2 78.3 L 142.8 H ABG HCO3 15.5 L ABG O2 Saturation ABG Base Excess -3.5 L -8.2 L ABG Hemoglobin 6.8 L 8.2 L VBG pH Oxyhemoglobin 94.3 L Sodium Potassium Chloride Carbon Dioxide BUN Creatinine Glucose POC Glucose 342 H Hemoglobin A1c Lactic Acid Calcium Phosphorus Magnesium Iron TIBC Direct Bilirubin AST ALT Alkaline Phosphatase Total Creatine Kinase CK-MB (CK-2) C-Reactive Protein Total Protein Albumin Vitamin B12 Urine WBC (Auto) Salicylates Acetaminophen Miscellaneous Test Crossmatch 04/02/19 04/02/19 04/02/19 03:49 06:50 07:48 WBC RBC 2.65 L Hgb 8.6 L Hct 25.1 L MCV MCH MCHC RDW 17.6 H Plt Count 48 L Lymph % (Auto) [place] % (Auto) Lymph # Seg Neutrophils % Seg Neuts % (Manual) Lymphocytes % (Manual) Nucleated RBC % Seg Neutrophils # Seg Neutrophils # Man Lymphocytes # (Manual) Monocytes # (Manual) PT INR APTT D-Dimer POC ABG pH ABG pH POC ABG pCO2 POC ABG pO2 ABG pO2 ABG HCO3 ABG O2 Saturation ABG Base Excess ABG Hemoglobin VBG pH Oxyhemoglobin Sodium Potassium Chloride Carbon Dioxide BUN Creatinine Glucose POC Glucose 247 H 200 H Hemoglobin A1c Lactic Acid Calcium Phosphorus Magnesium Iron TIBC Direct Bilirubin AST ALT Alkaline Phosphatase Total Creatine Kinase CK-MB (CK-2) C-Reactive Protein Total Protein Albumin Vitamin B12 Urine WBC (Auto) Salicylates Acetaminophen Miscellaneous Test Crossmatch 04/02/19 04/02/19 04/02/19 07:48 11:18 14:07 WBC RBC Hgb Hct MCV MCH MCHC RDW Plt Count Lymph % (Auto) [place] % (Auto) Lymph # Seg Neutrophils % Seg Neuts % (Manual) Lymphocytes % (Manual) Nucleated RBC % Seg Neutrophils # Seg Neutrophils # Man Lymphocytes # (Manual) Monocytes # (Manual) PT INR APTT D-Dimer POC ABG pH ABG pH POC ABG pCO2 POC ABG pO2 ABG pO2 ABG HCO3 ABG O2 Saturation ABG Base Excess ABG Hemoglobin VBG pH Oxyhemoglobin Sodium Potassium 3.5 L Chloride 115.7 H Carbon Dioxide 19 L BUN 29 H Creatinine 0.5 L Glucose 159 H POC Glucose 154 H 149 H Hemoglobin A1c Lactic Acid Calcium 7.5 L Phosphorus Magnesium Iron TIBC Direct Bilirubin AST 1418 H ALT 1134 H Alkaline Phosphatase 242 H Total Creatine Kinase CK-MB (CK-2) C-Reactive Protein Total Protein 4.2 L Albumin 2.1 L Vitamin B12 Urine WBC (Auto) Salicylates Acetaminophen Miscellaneous Test Crossmatch 04/02/19 04/02/19 04/02/19 18:09 19:46 23:05 WBC RBC Hgb Hct MCV MCH MCHC RDW Plt Count Lymph % (Auto) [place] % (Auto) Lymph # Seg Neutrophils % Seg Neuts % (Manual) Lymphocytes % (Manual) Nucleated RBC % Seg Neutrophils # Seg Neutrophils # Man Lymphocytes # (Manual) Monocytes # (Manual) PT INR APTT D-Dimer POC ABG pH ABG pH POC ABG pCO2 POC ABG pO2 ABG pO2 ABG HCO3 ABG O2 Saturation ABG Base Excess ABG Hemoglobin VBG pH Oxyhemoglobin Sodium Potassium Chloride Carbon Dioxide BUN Creatinine Glucose POC Glucose 188 H 209 H 247 H Hemoglobin A1c Lactic Acid Calcium Phosphorus Magnesium Iron TIBC Direct Bilirubin AST ALT Alkaline Phosphatase Total Creatine Kinase CK-MB (CK-2) C-Reactive Protein Total Protein Albumin Vitamin B12 Urine WBC (Auto) Salicylates Acetaminophen Miscellaneous Test Crossmatch 04/03/19 04/03/19 04/03/19 02:58 03:40 03:40 WBC RBC 2.87 L Hgb 9.3 L Hct 27.0 L MCV MCH MCHC RDW 17.2 H Plt Count 65 L Lymph % (Auto) [place] % (Auto) 9.8 H Lymph # 1.1 L Seg Neutrophils % Seg Neuts % (Manual) Lymphocytes % (Manual) Nucleated RBC % Seg Neutrophils # Seg Neutrophils # Man Lymphocytes # (Manual) Monocytes # (Manual) PT INR APTT D-Dimer POC ABG pH ABG pH POC ABG pCO2 POC ABG pO2 ABG pO2 ABG HCO3 ABG O2 Saturation ABG Base Excess ABG Hemoglobin VBG pH Oxyhemoglobin Sodium 147 H Potassium 3.5 L Chloride 116.7 H Carbon Dioxide 18 L BUN Creatinine 0.4 L Glucose 150 H POC Glucose 166 H Hemoglobin A1c Lactic Acid Calcium 8.1 L Phosphorus 2.20 L Magnesium Iron TIBC Direct Bilirubin AST 594 H ALT 861 H Alkaline Phosphatase 299 H Total Creatine Kinase CK-MB (CK-2) C-Reactive Protein Total Protein 4.4 L Albumin 2.1 L Vitamin B12 Urine WBC (Auto) Salicylates Acetaminophen Miscellaneous Test Crossmatch 04/03/19 04/03/19 04/03/19 05:35 07:02 08:23 WBC RBC Hgb Hct MCV MCH MCHC RDW Plt Count Lymph % (Auto) [place] % (Auto) Lymph # Seg Neutrophils % Seg Neuts % (Manual) Lymphocytes % (Manual) Nucleated RBC % Seg Neutrophils # Seg Neutrophils # Man Lymphocytes # (Manual) Monocytes # (Manual) PT INR APTT D-Dimer POC ABG pH ABG pH POC ABG pCO2 POC ABG pO2 ABG pO2 97.7 H ABG HCO3 19.3 L ABG O2 Saturation ABG Base Excess -5.0 L ABG Hemoglobin 8.0 L VBG pH Oxyhemoglobin Sodium Potassium Chloride Carbon Dioxide BUN Creatinine Glucose POC Glucose 135 H 132 H Hemoglobin A1c Lactic Acid Calcium Phosphorus Magnesium Iron TIBC Direct Bilirubin AST ALT Alkaline Phosphatase Total Creatine Kinase CK-MB (CK-2) C-Reactive Protein Total Protein Albumin Vitamin B12 Urine WBC (Auto) Salicylates Acetaminophen Miscellaneous Test Crossmatch 04/03/19 04/03/19 04/03/19 11:58 15:11 17:53 WBC RBC Hgb Hct MCV MCH MCHC RDW Plt Count Lymph % (Auto) [place] % (Auto) Lymph # Seg Neutrophils % Seg Neuts % (Manual) Lymphocytes % (Manual) Nucleated RBC % Seg Neutrophils # Seg Neutrophils # Man Lymphocytes # (Manual) Monocytes # (Manual) PT INR APTT D-Dimer POC ABG pH ABG pH POC ABG pCO2 POC ABG pO2 ABG pO2 ABG HCO3 ABG O2 Saturation ABG Base Excess ABG Hemoglobin VBG pH Oxyhemoglobin Sodium Potassium Chloride Carbon Dioxide BUN Creatinine Glucose POC Glucose 179 H 213 H 223 H Hemoglobin A1c Lactic Acid Calcium Phosphorus Magnesium Iron TIBC Direct Bilirubin AST ALT Alkaline Phosphatase Total Creatine Kinase CK-MB (CK-2) C-Reactive Protein Total Protein Albumin Vitamin B12 Urine WBC (Auto) Salicylates Acetaminophen Miscellaneous Test Crossmatch 04/03/19 04/04/19 04/04/19 23:06 02:36 06:41 WBC RBC Hgb Hct MCV MCH MCHC RDW Plt Count Lymph % (Auto) [place] % (Auto) Lymph # Seg Neutrophils % Seg Neuts % (Manual) Lymphocytes % (Manual) Nucleated RBC % Seg Neutrophils # Seg Neutrophils # Man Lymphocytes # (Manual) Monocytes # (Manual) PT INR APTT D-Dimer POC ABG pH ABG pH POC ABG pCO2 POC ABG pO2 ABG pO2 ABG HCO3 ABG O2 Saturation ABG Base Excess ABG Hemoglobin VBG pH Oxyhemoglobin Sodium Potassium Chloride Carbon Dioxide BUN Creatinine Glucose POC Glucose 189 H 157 H 131 H Hemoglobin A1c Lactic Acid Calcium Phosphorus Magnesium Iron TIBC Direct Bilirubin AST ALT Alkaline Phosphatase Total Creatine Kinase CK-MB (CK-2) C-Reactive Protein Total Protein Albumin Vitamin B12 Urine WBC (Auto) Salicylates Acetaminophen Miscellaneous Test Crossmatch 04/04/19 04/04/19 04/04/19 11:42 15:45 18:21 WBC RBC Hgb Hct MCV MCH MCHC RDW Plt Count Lymph % (Auto) [place] % (Auto) Lymph # Seg Neutrophils % Seg Neuts % (Manual) Lymphocytes % (Manual) Nucleated RBC % Seg Neutrophils # Seg Neutrophils # Man Lymphocytes # (Manual) Monocytes # (Manual) PT INR APTT D-Dimer POC ABG pH ABG pH POC ABG pCO2 POC ABG pO2 ABG pO2 ABG HCO3 ABG O2 Saturation ABG Base Excess ABG Hemoglobin VBG pH Oxyhemoglobin Sodium Potassium Chloride Carbon Dioxide BUN Creatinine Glucose POC Glucose 233 H 236 H 255 H Hemoglobin A1c Lactic Acid Calcium Phosphorus Magnesium Iron TIBC Direct Bilirubin AST ALT Alkaline Phosphatase Total Creatine Kinase CK-MB (CK-2) C-Reactive Protein Total Protein Albumin Vitamin B12 Urine WBC (Auto) Salicylates Acetaminophen Miscellaneous Test Crossmatch 04/04/19 04/05/19 04/05/19 21:21 03:06 06:05 WBC RBC 2.68 L Hgb 8.5 L Hct 26.3 L MCV 98 H MCH MCHC RDW 17.4 H Plt Count Lymph % (Auto) [place] % (Auto) Lymph # Seg Neutrophils % Seg Neuts % (Manual) Lymphocytes % (Manual) Nucleated RBC % Seg Neutrophils # Seg Neutrophils # Man Lymphocytes # (Manual) Monocytes # (Manual) PT INR APTT D-Dimer POC ABG pH ABG pH POC ABG pCO2 POC ABG pO2 ABG pO2 ABG HCO3 ABG O2 Saturation ABG Base Excess ABG Hemoglobin VBG pH Oxyhemoglobin Sodium Potassium Chloride Carbon Dioxide BUN Creatinine Glucose POC Glucose 132 H 161 H Hemoglobin A1c Lactic Acid Calcium Phosphorus Magnesium Iron TIBC Direct Bilirubin AST ALT Alkaline Phosphatase Total Creatine Kinase CK-MB (CK-2) C-Reactive Protein Total Protein Albumin Vitamin B12 Urine WBC (Auto) Salicylates Acetaminophen Miscellaneous Test Crossmatch 04/05/19 04/05/19 04/05/19 06:05 06:49 10:23 WBC RBC Hgb Hct MCV MCH MCHC RDW Plt Count Lymph % (Auto) [place] % (Auto) Lymph # Seg Neutrophils % Seg Neuts % (Manual) Lymphocytes % (Manual) Nucleated RBC % Seg Neutrophils # Seg Neutrophils # Man Lymphocytes # (Manual) Monocytes # (Manual) PT INR APTT D-Dimer POC ABG pH ABG pH POC ABG pCO2 POC ABG pO2 ABG pO2 ABG HCO3 ABG O2 Saturation ABG Base Excess ABG Hemoglobin VBG pH Oxyhemoglobin Sodium Potassium Chloride 112.5 H Carbon Dioxide BUN Creatinine 0.2 L Glucose 237 H POC Glucose 283 H 296 H Hemoglobin A1c Lactic Acid Calcium 7.9 L Phosphorus Magnesium Iron TIBC Direct Bilirubin AST ALT Alkaline Phosphatase Total Creatine Kinase CK-MB (CK-2) C-Reactive Protein Total Protein Albumin Vitamin B12 Urine WBC (Auto) Salicylates Acetaminophen Miscellaneous Test Crossmatch 04/05/19 04/05/19 04/05/19 14:46 18:19 20:35 WBC RBC Hgb Hct MCV MCH MCHC RDW Plt Count Lymph % (Auto) [place] % (Auto) Lymph # Seg Neutrophils % Seg Neuts % (Manual) Lymphocytes % (Manual) Nucleated RBC % Seg Neutrophils # Seg Neutrophils # Man Lymphocytes # (Manual) Monocytes # (Manual) PT INR APTT D-Dimer POC ABG pH ABG pH POC ABG pCO2 POC ABG pO2 ABG pO2 ABG HCO3 ABG O2 Saturation ABG Base Excess ABG Hemoglobin VBG pH Oxyhemoglobin Sodium Potassium Chloride Carbon Dioxide BUN Creatinine Glucose POC Glucose 225 H 259 H 236 H Hemoglobin A1c Lactic Acid Calcium Phosphorus Magnesium Iron TIBC Direct Bilirubin AST ALT Alkaline Phosphatase Total Creatine Kinase CK-MB (CK-2) C-Reactive Protein Total Protein Albumin Vitamin B12 Urine WBC (Auto) Salicylates Acetaminophen Miscellaneous Test Crossmatch 04/05/19 04/06/19 04/06/19 23:11 00:06 03:14 WBC RBC Hgb Hct MCV MCH MCHC RDW Plt Count Lymph % (Auto) [place] % (Auto) Lymph # Seg Neutrophils % Seg Neuts % (Manual) Lymphocytes % (Manual) Nucleated RBC % Seg Neutrophils # Seg Neutrophils # Man Lymphocytes # (Manual) Monocytes # (Manual) PT INR APTT D-Dimer 4526.86 H POC ABG pH ABG pH POC ABG pCO2 POC ABG pO2 ABG pO2 ABG HCO3 ABG O2 Saturation ABG Base Excess ABG Hemoglobin VBG pH Oxyhemoglobin Sodium Potassium Chloride Carbon Dioxide BUN Creatinine Glucose POC Glucose 205 H 228 H Hemoglobin A1c Lactic Acid Calcium Phosphorus Magnesium Iron TIBC Direct Bilirubin AST ALT Alkaline Phosphatase Total Creatine Kinase CK-MB (CK-2) C-Reactive Protein Total Protein Albumin Vitamin B12 Urine WBC (Auto) Salicylates Acetaminophen Miscellaneous Test Crossmatch 04/06/19 04/06/19 04/06/19 05:20 05:20 07:57 WBC 15.1 H RBC 2.90 L Hgb 9.1 L Hct 28.0 L MCV MCH MCHC RDW 17.3 H Plt Count Lymph % (Auto) [place] % (Auto) Lymph # Seg Neutrophils % Seg Neuts % (Manual) Lymphocytes % (Manual) Nucleated RBC % Seg Neutrophils # Seg Neutrophils # Man Lymphocytes # (Manual) Monocytes # (Manual) PT INR APTT D-Dimer POC ABG pH ABG pH POC ABG pCO2 POC ABG pO2 ABG pO2 ABG HCO3 ABG O2 Saturation ABG Base Excess ABG Hemoglobin VBG pH Oxyhemoglobin Sodium Potassium Chloride Carbon Dioxide BUN Creatinine 0.2 L Glucose 161 H POC Glucose 191 H Hemoglobin A1c Lactic Acid Calcium 8.0 L Phosphorus Magnesium Iron TIBC Direct Bilirubin AST ALT Alkaline Phosphatase Total Creatine Kinase CK-MB (CK-2) C-Reactive Protein Total Protein Albumin Vitamin B12 Urine WBC (Auto) Salicylates Acetaminophen Miscellaneous Test Crossmatch 04/06/19 04/06/19 04/06/19 12:09 18:24 22:07 WBC RBC Hgb Hct MCV MCH MCHC RDW Plt Count Lymph % (Auto) [place] % (Auto) Lymph # Seg Neutrophils % Seg Neuts % (Manual) Lymphocytes % (Manual) Nucleated RBC % Seg Neutrophils # Seg Neutrophils # Man Lymphocytes # (Manual) Monocytes # (Manual) PT INR APTT D-Dimer POC ABG pH ABG pH POC ABG pCO2 POC ABG pO2 ABG pO2 ABG HCO3 ABG O2 Saturation ABG Base Excess ABG Hemoglobin VBG pH Oxyhemoglobin Sodium Potassium Chloride Carbon Dioxide BUN Creatinine Glucose POC Glucose 143 H 161 H 140 H Hemoglobin A1c Lactic Acid Calcium Phosphorus Magnesium Iron TIBC Direct Bilirubin AST ALT Alkaline Phosphatase Total Creatine Kinase CK-MB (CK-2) C-Reactive Protein Total Protein Albumin Vitamin B12 Urine WBC (Auto) Salicylates Acetaminophen Miscellaneous Test Crossmatch 04/07/19 04/07/19 04/07/19 03:00 04:30 04:30 WBC 13.0 H RBC 2.65 L Hgb 8.3 L Hct 25.5 L MCV MCH MCHC RDW 17.0 H Plt Count Lymph % (Auto) [place] % (Auto) Lymph # Seg Neutrophils % Seg Neuts % (Manual) Lymphocytes % (Manual) Nucleated RBC % Seg Neutrophils # Seg Neutrophils # Man Lymphocytes # (Manual) Monocytes # (Manual) PT INR APTT D-Dimer POC ABG pH ABG pH POC ABG pCO2 POC ABG pO2 ABG pO2 ABG HCO3 ABG O2 Saturation ABG Base Excess ABG Hemoglobin VBG pH Oxyhemoglobin Sodium Potassium Chloride Carbon Dioxide BUN Creatinine 0.2 L Glucose 208 H POC Glucose 224 H Hemoglobin A1c Lactic Acid Calcium 7.7 L Phosphorus Magnesium Iron TIBC Direct Bilirubin AST ALT Alkaline Phosphatase Total Creatine Kinase CK-MB (CK-2) C-Reactive Protein Total Protein Albumin Vitamin B12 Urine WBC (Auto) Salicylates Acetaminophen Miscellaneous Test Crossmatch 04/07/19 04/07/19 04/07/19 05:47 08:27 10:33 WBC RBC Hgb Hct MCV MCH MCHC RDW Plt Count Lymph % (Auto) [place] % (Auto) Lymph # Seg Neutrophils % Seg Neuts % (Manual) Lymphocytes % (Manual) Nucleated RBC % Seg Neutrophils # Seg Neutrophils # Man Lymphocytes # (Manual) Monocytes # (Manual) PT INR APTT D-Dimer POC ABG pH ABG pH POC ABG pCO2 POC ABG pO2 ABG pO2 ABG HCO3 ABG O2 Saturation ABG Base Excess ABG Hemoglobin VBG pH Oxyhemoglobin Sodium Potassium Chloride Carbon Dioxide BUN Creatinine Glucose POC Glucose 225 H 176 H 207 H Hemoglobin A1c Lactic Acid Calcium Phosphorus Magnesium Iron TIBC Direct Bilirubin AST ALT Alkaline Phosphatase Total Creatine Kinase CK-MB (CK-2) C-Reactive Protein Total Protein Albumin Vitamin B12 Urine WBC (Auto) Salicylates Acetaminophen Miscellaneous Test Crossmatch 04/07/19 04/07/19 04/07/19 14:13 18:32 22:42 WBC RBC Hgb Hct MCV MCH MCHC RDW Plt Count Lymph % (Auto) [place] % (Auto) Lymph # Seg Neutrophils % Seg Neuts % (Manual) Lymphocytes % (Manual) Nucleated RBC % Seg Neutrophils # Seg Neutrophils # Man Lymphocytes # (Manual) Monocytes # (Manual) PT INR APTT D-Dimer POC ABG pH ABG pH POC ABG pCO2 POC ABG pO2 ABG pO2 ABG HCO3 ABG O2 Saturation ABG Base Excess ABG Hemoglobin VBG pH Oxyhemoglobin Sodium Potassium Chloride Carbon Dioxide BUN Creatinine Glucose POC Glucose 219 H 227 H 238 H Hemoglobin A1c Lactic Acid Calcium Phosphorus Magnesium Iron TIBC Direct Bilirubin AST ALT Alkaline Phosphatase Total Creatine Kinase CK-MB (CK-2) C-Reactive Protein Total Protein Albumin Vitamin B12 Urine WBC (Auto) Salicylates Acetaminophen Miscellaneous Test Crossmatch 04/08/19 04/08/19 04/08/19 02:31 05:37 14:10 WBC RBC Hgb Hct MCV MCH MCHC RDW Plt Count Lymph % (Auto) [place] % (Auto) Lymph # Seg Neutrophils % Seg Neuts % (Manual) Lymphocytes % (Manual) Nucleated RBC % Seg Neutrophils # Seg Neutrophils # Man Lymphocytes # (Manual) Monocytes # (Manual) PT INR APTT D-Dimer POC ABG pH ABG pH POC ABG pCO2 POC ABG pO2 ABG pO2 ABG HCO3 ABG O2 Saturation ABG Base Excess ABG Hemoglobin VBG pH Oxyhemoglobin Sodium Potassium Chloride Carbon Dioxide BUN Creatinine Glucose POC Glucose 194 H 194 H 139 H Hemoglobin A1c Lactic Acid Calcium Phosphorus Magnesium Iron TIBC Direct Bilirubin AST ALT Alkaline Phosphatase Total Creatine Kinase CK-MB (CK-2) C-Reactive Protein Total Protein Albumin Vitamin B12 Urine WBC (Auto) Salicylates Acetaminophen Miscellaneous Test Crossmatch 04/08/19 04/08/19 04/09/19 17:43 23:20 03:28 WBC RBC Hgb Hct MCV MCH MCHC RDW Plt Count Lymph % (Auto) [place] % (Auto) Lymph # Seg Neutrophils % Seg Neuts % (Manual) Lymphocytes % (Manual) Nucleated RBC % Seg Neutrophils # Seg Neutrophils # Man Lymphocytes # (Manual) Monocytes # (Manual) PT INR APTT D-Dimer POC ABG pH ABG pH POC ABG pCO2 POC ABG pO2 ABG pO2 ABG HCO3 ABG O2 Saturation ABG Base Excess ABG Hemoglobin VBG pH Oxyhemoglobin Sodium Potassium Chloride Carbon Dioxide BUN Creatinine Glucose POC Glucose 261 H 277 H 301 H Hemoglobin A1c Lactic Acid Calcium Phosphorus Magnesium Iron TIBC Direct Bilirubin AST ALT Alkaline Phosphatase Total Creatine Kinase CK-MB (CK-2) C-Reactive Protein Total Protein Albumin Vitamin B12 Urine WBC (Auto) Salicylates Acetaminophen Miscellaneous Test Crossmatch 04/09/19 04/09/19 04/09/19 05:35 05:35 05:35 WBC RBC 2.78 L Hgb 9.0 L Hct 26.7 L MCV MCH MCHC RDW 17.0 H Plt Count Lymph % (Auto) [place] % (Auto) Lymph # Seg Neutrophils % Seg Neuts % (Manual) Lymphocytes % (Manual) Nucleated RBC % Seg Neutrophils # Seg Neutrophils # Man Lymphocytes # (Manual) Monocytes # (Manual) PT INR APTT D-Dimer POC ABG pH ABG pH POC ABG pCO2 POC ABG pO2 ABG pO2 ABG HCO3 ABG O2 Saturation ABG Base Excess ABG Hemoglobin VBG pH Oxyhemoglobin Sodium Potassium Chloride Carbon Dioxide 31 H BUN Creatinine 0.2 L Glucose 218 H POC Glucose 240 H Hemoglobin A1c Lactic Acid Calcium Phosphorus Magnesium Iron TIBC Direct Bilirubin AST ALT Alkaline Phosphatase Total Creatine Kinase CK-MB (CK-2) C-Reactive Protein Total Protein Albumin Vitamin B12 Urine WBC (Auto) Salicylates Acetaminophen Miscellaneous Test Crossmatch 04/09/19 04/09/19 04/09/19 09:01 12:23 17:33 WBC RBC Hgb Hct MCV MCH MCHC RDW Plt Count Lymph % (Auto) [place] % (Auto) Lymph # Seg Neutrophils % Seg Neuts % (Manual) Lymphocytes % (Manual) Nucleated RBC % Seg Neutrophils # Seg Neutrophils # Man Lymphocytes # (Manual) Monocytes # (Manual) PT INR APTT D-Dimer POC ABG pH ABG pH POC ABG pCO2 POC ABG pO2 ABG pO2 ABG HCO3 ABG O2 Saturation ABG Base Excess ABG Hemoglobin VBG pH Oxyhemoglobin Sodium Potassium Chloride Carbon Dioxide BUN Creatinine Glucose POC Glucose 160 H 162 H 149 H Hemoglobin A1c Lactic Acid Calcium Phosphorus Magnesium Iron TIBC Direct Bilirubin AST ALT Alkaline Phosphatase Total Creatine Kinase CK-MB (CK-2) C-Reactive Protein Total Protein Albumin Vitamin B12 Urine WBC (Auto) Salicylates Acetaminophen Miscellaneous Test Crossmatch 04/09/19 04/09/19 04/10/19 21:26 22:28 03:16 WBC RBC Hgb Hct MCV MCH MCHC RDW Plt Count Lymph % (Auto) [place] % (Auto) Lymph # Seg Neutrophils % Seg Neuts % (Manual) Lymphocytes % (Manual) Nucleated RBC % Seg Neutrophils # Seg Neutrophils # Man Lymphocytes # (Manual) Monocytes # (Manual) PT INR APTT D-Dimer POC ABG pH ABG pH POC ABG pCO2 POC ABG pO2 ABG pO2 ABG HCO3 ABG O2 Saturation ABG Base Excess ABG Hemoglobin VBG pH Oxyhemoglobin Sodium Potassium Chloride Carbon Dioxide BUN Creatinine Glucose POC Glucose 196 H 224 H 163 H Hemoglobin A1c Lactic Acid Calcium Phosphorus Magnesium Iron TIBC Direct Bilirubin AST ALT Alkaline Phosphatase Total Creatine Kinase CK-MB (CK-2) C-Reactive Protein Total Protein Albumin Vitamin B12 Urine WBC (Auto) Salicylates Acetaminophen Miscellaneous Test Crossmatch 04/10/19 04/10/19 04/10/19 04:15 04:15 05:30 WBC RBC 2.88 L Hgb 9.2 L Hct 27.9 L MCV MCH MCHC RDW 17.0 H Plt Count 454 H Lymph % (Auto) [place] % (Auto) Lymph # Seg Neutrophils % Seg Neuts % (Manual) Lymphocytes % (Manual) Nucleated RBC % Seg Neutrophils # Seg Neutrophils # Man Lymphocytes # (Manual) Monocytes # (Manual) PT INR APTT D-Dimer POC ABG pH ABG pH POC ABG pCO2 POC ABG pO2 ABG pO2 ABG HCO3 ABG O2 Saturation ABG Base Excess ABG Hemoglobin VBG pH Oxyhemoglobin Sodium Potassium Chloride Carbon Dioxide 32 H BUN Creatinine 0.2 L Glucose 126 H POC Glucose 135 H Hemoglobin A1c Lactic Acid Calcium Phosphorus Magnesium Iron TIBC Direct Bilirubin AST ALT Alkaline Phosphatase Total Creatine Kinase CK-MB (CK-2) C-Reactive Protein Total Protein Albumin Vitamin B12 Urine WBC (Auto) Salicylates Acetaminophen Miscellaneous Test Crossmatch 04/10/19 04/10/19 04/10/19 12:14 15:29 23:38 WBC RBC Hgb Hct MCV MCH MCHC RDW Plt Count Lymph % (Auto) [place] % (Auto) Lymph # Seg Neutrophils % Seg Neuts % (Manual) Lymphocytes % (Manual) Nucleated RBC % Seg Neutrophils # Seg Neutrophils # Man Lymphocytes # (Manual) Monocytes # (Manual) PT INR APTT D-Dimer POC ABG pH ABG pH POC ABG pCO2 POC ABG pO2 ABG pO2 ABG HCO3 ABG O2 Saturation ABG Base Excess ABG Hemoglobin VBG pH Oxyhemoglobin Sodium Potassium Chloride Carbon Dioxide BUN Creatinine Glucose POC Glucose 109 H 149 H 268 H Hemoglobin A1c Lactic Acid Calcium Phosphorus Magnesium Iron TIBC Direct Bilirubin AST ALT Alkaline Phosphatase Total Creatine Kinase CK-MB (CK-2) C-Reactive Protein Total Protein Albumin Vitamin B12 Urine WBC (Auto) Salicylates Acetaminophen Miscellaneous Test Crossmatch 04/11/19 04/11/19 04/11/19 05:27 12:08 18:08 WBC RBC Hgb Hct MCV MCH MCHC RDW Plt Count Lymph % (Auto) [place] % (Auto) Lymph # Seg Neutrophils % Seg Neuts % (Manual) Lymphocytes % (Manual) Nucleated RBC % Seg Neutrophils # Seg Neutrophils # Man Lymphocytes # (Manual) Monocytes # (Manual) PT INR APTT D-Dimer POC ABG pH ABG pH POC ABG pCO2 POC ABG pO2 ABG pO2 ABG HCO3 ABG O2 Saturation ABG Base Excess ABG Hemoglobin VBG pH Oxyhemoglobin Sodium Potassium Chloride Carbon Dioxide BUN Creatinine Glucose POC Glucose 109 H 185 H 190 H Hemoglobin A1c Lactic Acid Calcium Phosphorus Magnesium Iron TIBC Direct Bilirubin AST ALT Alkaline Phosphatase Total Creatine Kinase CK-MB (CK-2) C-Reactive Protein Total Protein Albumin Vitamin B12 Urine WBC (Auto) Salicylates Acetaminophen Miscellaneous Test Crossmatch 04/11/19 04/12/19 04/12/19 23:23 06:00 11:42 WBC RBC Hgb Hct MCV MCH MCHC RDW Plt Count Lymph % (Auto) [place] % (Auto) Lymph # Seg Neutrophils % Seg Neuts % (Manual) Lymphocytes % (Manual) Nucleated RBC % Seg Neutrophils # Seg Neutrophils # Man Lymphocytes # (Manual) Monocytes # (Manual) PT INR APTT D-Dimer POC ABG pH ABG pH POC ABG pCO2 POC ABG pO2 ABG pO2 ABG HCO3 ABG O2 Saturation ABG Base Excess ABG Hemoglobin VBG pH Oxyhemoglobin Sodium Potassium Chloride Carbon Dioxide BUN Creatinine Glucose POC Glucose 127 H 201 H 161 H Hemoglobin A1c Lactic Acid Calcium Phosphorus Magnesium Iron TIBC Direct Bilirubin AST ALT Alkaline Phosphatase Total Creatine Kinase CK-MB (CK-2) C-Reactive Protein Total Protein Albumin Vitamin B12 Urine WBC (Auto) Salicylates Acetaminophen Miscellaneous Test Crossmatch 04/12/19 04/12/19 04/12/19 17:56 20:07 21:59 WBC RBC Hgb Hct MCV MCH MCHC RDW Plt Count Lymph % (Auto) [place] % (Auto) Lymph # Seg Neutrophils % Seg Neuts % (Manual) Lymphocytes % (Manual) Nucleated RBC % Seg Neutrophils # Seg Neutrophils # Man Lymphocytes # (Manual) Monocytes # (Manual) PT INR APTT D-Dimer POC ABG pH ABG pH POC ABG pCO2 POC ABG pO2 ABG pO2 ABG HCO3 ABG O2 Saturation ABG Base Excess ABG Hemoglobin VBG pH Oxyhemoglobin Sodium Potassium Chloride Carbon Dioxide BUN Creatinine Glucose POC Glucose 145 H 158 H 203 H Hemoglobin A1c Lactic Acid Calcium Phosphorus Magnesium Iron TIBC Direct Bilirubin AST ALT Alkaline Phosphatase Total Creatine Kinase CK-MB (CK-2) C-Reactive Protein Total Protein Albumin Vitamin B12 Urine WBC (Auto) Salicylates Acetaminophen Miscellaneous Test Crossmatch 04/12/19 04/13/19 04/13/19 23:37 08:50 08:50 WBC 15.7 H RBC 3.12 L Hgb Hct 30.2 L MCV MCH 33 H MCHC RDW 18.0 H Plt Count 678 H Lymph % (Auto) [place] % (Auto) Lymph # Seg Neutrophils % Seg Neuts % (Manual) Lymphocytes % (Manual) Nucleated RBC % Seg Neutrophils # Seg Neutrophils # Man Lymphocytes # (Manual) Monocytes # (Manual) PT INR APTT D-Dimer POC ABG pH ABG pH POC ABG pCO2 POC ABG pO2 ABG pO2 ABG HCO3 ABG O2 Saturation ABG Base Excess ABG Hemoglobin VBG pH Oxyhemoglobin Sodium Potassium Chloride Carbon Dioxide BUN Creatinine < 0.2 L Glucose 46 L POC Glucose 238 H Hemoglobin A1c Lactic Acid Calcium Phosphorus Magnesium Iron TIBC Direct Bilirubin AST ALT Alkaline Phosphatase Total Creatine Kinase CK-MB (CK-2) C-Reactive Protein Total Protein Albumin Vitamin B12 Urine WBC (Auto) Salicylates Acetaminophen Miscellaneous Test Crossmatch 04/13/19 04/13/19 04/13/19 11:56 17:27 23:57 WBC RBC Hgb Hct MCV MCH MCHC RDW Plt Count Lymph % (Auto) [place] % (Auto) Lymph # Seg Neutrophils % Seg Neuts % (Manual) Lymphocytes % (Manual) Nucleated RBC % Seg Neutrophils # Seg Neutrophils # Man Lymphocytes # (Manual) Monocytes # (Manual) PT INR APTT D-Dimer POC ABG pH ABG pH POC ABG pCO2 POC ABG pO2 ABG pO2 ABG HCO3 ABG O2 Saturation ABG Base Excess ABG Hemoglobin VBG pH Oxyhemoglobin Sodium Potassium Chloride Carbon Dioxide BUN Creatinine Glucose POC Glucose 40 L 66 L 65 L Hemoglobin A1c Lactic Acid Calcium Phosphorus Magnesium Iron TIBC Direct Bilirubin AST ALT Alkaline Phosphatase Total Creatine Kinase CK-MB (CK-2) C-Reactive Protein Total Protein Albumin Vitamin B12 Urine WBC (Auto) Salicylates Acetaminophen Miscellaneous Test Crossmatch 04/14/19 04/14/19 04/14/19 05:28 08:20 08:20 WBC 17.8 H RBC 3.26 L Hgb Hct MCV 98 H MCH MCHC RDW 18.3 H Plt Count 622 H Lymph % (Auto) [place] % (Auto) Lymph # Seg Neutrophils % Seg Neuts % (Manual) Lymphocytes % (Manual) Nucleated RBC % Seg Neutrophils # Seg Neutrophils # Man Lymphocytes # (Manual) Monocytes # (Manual) PT INR APTT D-Dimer POC ABG pH ABG pH POC ABG pCO2 POC ABG pO2 ABG pO2 ABG HCO3 ABG O2 Saturation ABG Base Excess ABG Hemoglobin VBG pH Oxyhemoglobin Sodium Potassium Chloride Carbon Dioxide BUN 6 L Creatinine < 0.2 L Glucose 154 H POC Glucose 149 H Hemoglobin A1c Lactic Acid Calcium Phosphorus Magnesium Iron TIBC Direct Bilirubin AST ALT Alkaline Phosphatase Total Creatine Kinase CK-MB (CK-2) C-Reactive Protein Total Protein Albumin Vitamin B12 Urine WBC (Auto) Salicylates Acetaminophen Miscellaneous Test Crossmatch 04/14/19 04/14/19 04/14/19 12:16 17:54 23:35 WBC RBC Hgb Hct MCV MCH MCHC RDW Plt Count Lymph % (Auto) [place] % (Auto) Lymph # Seg Neutrophils % Seg Neuts % (Manual) Lymphocytes % (Manual) Nucleated RBC % Seg Neutrophils # Seg Neutrophils # Man Lymphocytes # (Manual) Monocytes # (Manual) PT INR APTT D-Dimer POC ABG pH ABG pH POC ABG pCO2 POC ABG pO2 ABG pO2 ABG HCO3 ABG O2 Saturation ABG Base Excess ABG Hemoglobin VBG pH Oxyhemoglobin Sodium Potassium Chloride Carbon Dioxide BUN Creatinine Glucose POC Glucose 176 H 224 H 173 H Hemoglobin A1c Lactic Acid Calcium Phosphorus Magnesium Iron TIBC Direct Bilirubin AST ALT Alkaline Phosphatase Total Creatine Kinase CK-MB (CK-2) C-Reactive Protein Total Protein Albumin Vitamin B12 Urine WBC (Auto) Salicylates Acetaminophen Miscellaneous Test Crossmatch 04/15/19 04/15/19 04/15/19 05:44 12:44 18:06 WBC RBC Hgb Hct MCV MCH MCHC RDW Plt Count Lymph % (Auto) [place] % (Auto) Lymph # Seg Neutrophils % Seg Neuts % (Manual) Lymphocytes % (Manual) Nucleated RBC % Seg Neutrophils # Seg Neutrophils # Man Lymphocytes # (Manual) Monocytes # (Manual) PT INR APTT D-Dimer POC ABG pH 7.461 H ABG pH POC ABG pCO2 45.5 H POC ABG pO2 ABG pO2 ABG HCO3 ABG O2 Saturation ABG Base Excess ABG Hemoglobin VBG pH Oxyhemoglobin Sodium Potassium Chloride Carbon Dioxide BUN Creatinine Glucose POC Glucose 255 H 365 H Hemoglobin A1c Lactic Acid Calcium Phosphorus Magnesium Iron TIBC Direct Bilirubin AST ALT Alkaline Phosphatase Total Creatine Kinase CK-MB (CK-2) C-Reactive Protein Total Protein Albumin Vitamin B12 Urine WBC (Auto) Salicylates Acetaminophen Miscellaneous Test Crossmatch 04/15/19 04/15/19 04/16/19 18:06 23:34 00:40 WBC RBC Hgb Hct MCV MCH MCHC RDW Plt Count Lymph % (Auto) [place] % (Auto) Lymph # Seg Neutrophils % Seg Neuts % (Manual) Lymphocytes % (Manual) Nucleated RBC % Seg Neutrophils # Seg Neutrophils # Man Lymphocytes # (Manual) Monocytes # (Manual) PT INR APTT D-Dimer POC ABG pH ABG pH POC ABG pCO2 POC ABG pO2 ABG pO2 ABG HCO3 ABG O2 Saturation ABG Base Excess ABG Hemoglobin VBG pH Oxyhemoglobin Sodium Potassium Chloride Carbon Dioxide BUN Creatinine Glucose POC Glucose 157 H 56 L 107 H Hemoglobin A1c Lactic Acid Calcium Phosphorus Magnesium Iron TIBC Direct Bilirubin AST ALT Alkaline Phosphatase Total Creatine Kinase CK-MB (CK-2) C-Reactive Protein Total Protein Albumin Vitamin B12 Urine WBC (Auto) Salicylates Acetaminophen Miscellaneous Test Crossmatch 04/16/19 04/16/19 04/16/19 09:06 09:06 11:21 WBC 12.9 H RBC 2.95 L Hgb 9.7 L Hct 28.9 L MCV 98 H MCH 33 H MCHC RDW 17.7 H Plt Count 581 H Lymph % (Auto) [place] % (Auto) Lymph # Seg Neutrophils % Seg Neuts % (Manual) Lymphocytes % (Manual) Nucleated RBC % Seg Neutrophils # Seg Neutrophils # Man Lymphocytes # (Manual) Monocytes # (Manual) PT INR APTT D-Dimer POC ABG pH ABG pH POC ABG pCO2 POC ABG pO2 ABG pO2 ABG HCO3 ABG O2 Saturation ABG Base Excess ABG Hemoglobin VBG pH Oxyhemoglobin Sodium Potassium Chloride Carbon Dioxide 31 H BUN Creatinine 0.2 L Glucose 155 H POC Glucose 184 H Hemoglobin A1c Lactic Acid Calcium Phosphorus Magnesium Iron TIBC Direct Bilirubin AST ALT Alkaline Phosphatase Total Creatine Kinase CK-MB (CK-2) C-Reactive Protein Total Protein Albumin Vitamin B12 Urine WBC (Auto) Salicylates Acetaminophen Miscellaneous Test Crossmatch 04/16/19 04/16/19 04/16/19 17:28 20:17 23:09 WBC RBC Hgb Hct MCV MCH MCHC RDW Plt Count Lymph % (Auto) [place] % (Auto) Lymph # Seg Neutrophils % Seg Neuts % (Manual) Lymphocytes % (Manual) Nucleated RBC % Seg Neutrophils # Seg Neutrophils # Man Lymphocytes # (Manual) Monocytes # (Manual) PT INR APTT D-Dimer POC ABG pH 7.479 H ABG pH POC ABG pCO2 POC ABG pO2 71 L ABG pO2 ABG HCO3 ABG O2 Saturation ABG Base Excess ABG Hemoglobin VBG pH Oxyhemoglobin Sodium Potassium Chloride Carbon Dioxide BUN Creatinine Glucose POC Glucose 173 H 178 H Hemoglobin A1c Lactic Acid Calcium Phosphorus Magnesium Iron TIBC Direct Bilirubin AST ALT Alkaline Phosphatase Total Creatine Kinase CK-MB (CK-2) C-Reactive Protein Total Protein Albumin Vitamin B12 Urine WBC (Auto) Salicylates Acetaminophen Miscellaneous Test Crossmatch 04/17/19 04/17/19 04/17/19 05:02 11:39 12:48 WBC RBC Hgb Hct MCV MCH MCHC RDW Plt Count Lymph % (Auto) [place] % (Auto) Lymph # Seg Neutrophils % Seg Neuts % (Manual) Lymphocytes % (Manual) Nucleated RBC % Seg Neutrophils # Seg Neutrophils # Man Lymphocytes # (Manual) Monocytes # (Manual) PT INR APTT D-Dimer POC ABG pH 7.557 H ABG pH POC ABG pCO2 32.8 L POC ABG pO2 149 H ABG pO2 ABG HCO3 ABG O2 Saturation ABG Base Excess ABG Hemoglobin VBG pH Oxyhemoglobin Sodium Potassium Chloride Carbon Dioxide BUN Creatinine Glucose POC Glucose 252 H 124 H Hemoglobin A1c Lactic Acid Calcium Phosphorus Magnesium Iron TIBC Direct Bilirubin AST ALT Alkaline Phosphatase Total Creatine Kinase CK-MB (CK-2) C-Reactive Protein Total Protein Albumin Vitamin B12 Urine WBC (Auto) Salicylates Acetaminophen Miscellaneous Test Crossmatch 04/17/19 04/18/19 04/18/19 23:31 05:32 11:34 WBC RBC Hgb Hct MCV MCH MCHC RDW Plt Count Lymph % (Auto) [place] % (Auto) Lymph # Seg Neutrophils % Seg Neuts % (Manual) Lymphocytes % (Manual) Nucleated RBC % Seg Neutrophils # Seg Neutrophils # Man Lymphocytes # (Manual) Monocytes # (Manual) PT INR APTT D-Dimer POC ABG pH ABG pH POC ABG pCO2 POC ABG pO2 ABG pO2 ABG HCO3 ABG O2 Saturation ABG Base Excess ABG Hemoglobin VBG pH Oxyhemoglobin Sodium Potassium Chloride Carbon Dioxide BUN Creatinine Glucose POC Glucose 149 H 334 H 344 H Hemoglobin A1c Lactic Acid Calcium Phosphorus Magnesium Iron TIBC Direct Bilirubin AST ALT Alkaline Phosphatase Total Creatine Kinase CK-MB (CK-2) C-Reactive Protein Total Protein Albumin Vitamin B12 Urine WBC (Auto) Salicylates Acetaminophen Miscellaneous Test Crossmatch 04/18/19 04/18/19 04/18/19 17:43 18:14 23:35 WBC RBC Hgb Hct MCV MCH MCHC RDW Plt Count Lymph % (Auto) [place] % (Auto) Lymph # Seg Neutrophils % Seg Neuts % (Manual) Lymphocytes % (Manual) Nucleated RBC % Seg Neutrophils # Seg Neutrophils # Man Lymphocytes # (Manual) Monocytes # (Manual) PT INR APTT D-Dimer POC ABG pH ABG pH POC ABG pCO2 49.2 H POC ABG pO2 ABG pO2 ABG HCO3 ABG O2 Saturation ABG Base Excess ABG Hemoglobin VBG pH Oxyhemoglobin Sodium Potassium Chloride Carbon Dioxide BUN Creatinine Glucose POC Glucose 289 H 312 H Hemoglobin A1c Lactic Acid Calcium Phosphorus Magnesium Iron TIBC Direct Bilirubin AST ALT Alkaline Phosphatase Total Creatine Kinase CK-MB (CK-2) C-Reactive Protein Total Protein Albumin Vitamin B12 Urine WBC (Auto) Salicylates Acetaminophen Miscellaneous Test Crossmatch 04/19/19 04/19/19 04/19/19 04:35 05:55 12:26 WBC RBC Hgb Hct MCV MCH MCHC RDW Plt Count Lymph % (Auto) [place] % (Auto) Lymph # Seg Neutrophils % Seg Neuts % (Manual) Lymphocytes % (Manual) Nucleated RBC % Seg Neutrophils # Seg Neutrophils # Man Lymphocytes # (Manual) Monocytes # (Manual) PT INR APTT D-Dimer POC ABG pH 7.565 H ABG pH POC ABG pCO2 POC ABG pO2 ABG pO2 ABG HCO3 ABG O2 Saturation ABG Base Excess ABG Hemoglobin VBG pH Oxyhemoglobin Sodium Potassium Chloride Carbon Dioxide BUN Creatinine Glucose POC Glucose 172 H 271 H Hemoglobin A1c Lactic Acid Calcium Phosphorus Magnesium Iron TIBC Direct Bilirubin AST ALT Alkaline Phosphatase Total Creatine Kinase CK-MB (CK-2) C-Reactive Protein Total Protein Albumin Vitamin B12 Urine WBC (Auto) Salicylates Acetaminophen Miscellaneous Test Crossmatch 04/19/19 04/19/19 04/19/19 17:54 21:10 23:35 WBC RBC Hgb Hct MCV MCH MCHC RDW Plt Count Lymph % (Auto) [place] % (Auto) Lymph # Seg Neutrophils % Seg Neuts % (Manual) Lymphocytes % (Manual) Nucleated RBC % Seg Neutrophils # Seg Neutrophils # Man Lymphocytes # (Manual) Monocytes # (Manual) PT INR APTT D-Dimer POC ABG pH ABG pH POC ABG pCO2 POC ABG pO2 ABG pO2 ABG HCO3 ABG O2 Saturation ABG Base Excess ABG Hemoglobin VBG pH Oxyhemoglobin Sodium Potassium Chloride Carbon Dioxide BUN Creatinine Glucose POC Glucose 229 H 189 H 131 H Hemoglobin A1c Lactic Acid Calcium Phosphorus Magnesium Iron TIBC Direct Bilirubin AST ALT Alkaline Phosphatase Total Creatine Kinase CK-MB (CK-2) C-Reactive Protein Total Protein Albumin Vitamin B12 Urine WBC (Auto) Salicylates Acetaminophen Miscellaneous Test Crossmatch 04/20/19 04/20/19 04/20/19 05:42 11:58 17:32 WBC RBC Hgb Hct MCV MCH MCHC RDW Plt Count Lymph % (Auto) [place] % (Auto) Lymph # Seg Neutrophils % Seg Neuts % (Manual) Lymphocytes % (Manual) Nucleated RBC % Seg Neutrophils # Seg Neutrophils # Man Lymphocytes # (Manual) Monocytes # (Manual) PT INR APTT D-Dimer POC ABG pH ABG pH POC ABG pCO2 POC ABG pO2 ABG pO2 ABG HCO3 ABG O2 Saturation ABG Base Excess ABG Hemoglobin VBG pH Oxyhemoglobin Sodium Potassium Chloride Carbon Dioxide BUN Creatinine Glucose POC Glucose 289 H 265 H 232 H Hemoglobin A1c Lactic Acid Calcium Phosphorus Magnesium Iron TIBC Direct Bilirubin AST ALT Alkaline Phosphatase Total Creatine Kinase CK-MB (CK-2) C-Reactive Protein Total Protein Albumin Vitamin B12 Urine WBC (Auto) Salicylates Acetaminophen Miscellaneous Test Crossmatch 04/21/19 04/21/19 04/21/19 00:02 05:13 12:41 WBC RBC Hgb Hct MCV MCH MCHC RDW Plt Count Lymph % (Auto) [place] % (Auto) Lymph # Seg Neutrophils % Seg Neuts % (Manual) Lymphocytes % (Manual) Nucleated RBC % Seg Neutrophils # Seg Neutrophils # Man Lymphocytes # (Manual) Monocytes # (Manual) PT INR APTT D-Dimer POC ABG pH ABG pH POC ABG pCO2 POC ABG pO2 ABG pO2 ABG HCO3 ABG O2 Saturation ABG Base Excess ABG Hemoglobin VBG pH Oxyhemoglobin Sodium Potassium Chloride Carbon Dioxide BUN Creatinine Glucose POC Glucose 126 H 233 H 205 H Hemoglobin A1c Lactic Acid Calcium Phosphorus Magnesium Iron TIBC Direct Bilirubin AST ALT Alkaline Phosphatase Total Creatine Kinase CK-MB (CK-2) C-Reactive Protein Total Protein Albumin Vitamin B12 Urine WBC (Auto) Salicylates Acetaminophen Miscellaneous Test Crossmatch 04/21/19 04/22/19 04/22/19 23:42 03:57 03:57 WBC 11.5 H RBC 3.44 L Hgb Hct MCV MCH MCHC RDW 16.3 H Plt Count 510 H Lymph % (Auto) [place] % (Auto) Lymph # Seg Neutrophils % Seg Neuts % (Manual) Lymphocytes % (Manual) Nucleated RBC % Seg Neutrophils # Seg Neutrophils # Man Lymphocytes # (Manual) Monocytes # (Manual) PT INR APTT D-Dimer POC ABG pH ABG pH POC ABG pCO2 POC ABG pO2 ABG pO2 ABG HCO3 ABG O2 Saturation ABG Base Excess ABG Hemoglobin VBG pH Oxyhemoglobin Sodium Potassium Chloride 96.3 L Carbon Dioxide BUN Creatinine 0.2 L Glucose 333 H POC Glucose 149 H Hemoglobin A1c Lactic Acid Calcium Phosphorus Magnesium Iron TIBC Direct Bilirubin AST 60 H ALT Alkaline Phosphatase 204 H Total Creatine Kinase CK-MB (CK-2) C-Reactive Protein Total Protein Albumin 3.1 L Vitamin B12 Urine WBC (Auto) Salicylates Acetaminophen Miscellaneous Test Crossmatch 04/22/19 04/22/19 04/22/19 05:18 12:03 18:17 WBC RBC Hgb Hct MCV MCH MCHC RDW Plt Count Lymph % (Auto) [place] % (Auto) Lymph # Seg Neutrophils % Seg Neuts % (Manual) Lymphocytes % (Manual) Nucleated RBC % Seg Neutrophils # Seg Neutrophils # Man Lymphocytes # (Manual) Monocytes # (Manual) PT INR APTT D-Dimer POC ABG pH ABG pH POC ABG pCO2 POC ABG pO2 ABG pO2 ABG HCO3 ABG O2 Saturation ABG Base Excess ABG Hemoglobin VBG pH Oxyhemoglobin Sodium Potassium Chloride Carbon Dioxide BUN Creatinine Glucose POC Glucose 345 H 308 H 169 H Hemoglobin A1c Lactic Acid Calcium Phosphorus Magnesium Iron TIBC Direct Bilirubin AST ALT Alkaline Phosphatase Total Creatine Kinase CK-MB (CK-2) C-Reactive Protein Total Protein Albumin Vitamin B12 Urine WBC (Auto) Salicylates Acetaminophen Miscellaneous Test Crossmatch 04/23/19 04/23/19 04/23/19 00:14 05:43 11:15 WBC RBC Hgb Hct MCV MCH MCHC RDW Plt Count Lymph % (Auto) [place] % (Auto) Lymph # Seg Neutrophils % Seg Neuts % (Manual) Lymphocytes % (Manual) Nucleated RBC % Seg Neutrophils # Seg Neutrophils # Man Lymphocytes # (Manual) Monocytes # (Manual) PT INR APTT D-Dimer POC ABG pH ABG pH POC ABG pCO2 POC ABG pO2 ABG pO2 ABG HCO3 ABG O2 Saturation ABG Base Excess ABG Hemoglobin VBG pH Oxyhemoglobin Sodium Potassium Chloride Carbon Dioxide BUN Creatinine Glucose POC Glucose 192 H 260 H 186 H Hemoglobin A1c Lactic Acid Calcium Phosphorus Magnesium Iron TIBC Direct Bilirubin AST ALT Alkaline Phosphatase Total Creatine Kinase CK-MB (CK-2) C-Reactive Protein Total Protein Albumin Vitamin B12 Urine WBC (Auto) Salicylates Acetaminophen Miscellaneous Test Crossmatch 04/23/19 04/23/19 04/24/19 15:44 21:30 00:09 WBC RBC Hgb Hct MCV MCH MCHC RDW Plt Count Lymph % (Auto) [place] % (Auto) Lymph # Seg Neutrophils % Seg Neuts % (Manual) Lymphocytes % (Manual) Nucleated RBC % Seg Neutrophils # Seg Neutrophils # Man Lymphocytes # (Manual) Monocytes # (Manual) PT INR APTT D-Dimer POC ABG pH ABG pH POC ABG pCO2 POC ABG pO2 ABG pO2 ABG HCO3 ABG O2 Saturation ABG Base Excess ABG Hemoglobin VBG pH Oxyhemoglobin Sodium Potassium Chloride Carbon Dioxide BUN Creatinine Glucose POC Glucose 164 H 407 H 280 H Hemoglobin A1c Lactic Acid Calcium Phosphorus Magnesium Iron TIBC Direct Bilirubin AST ALT Alkaline Phosphatase Total Creatine Kinase CK-MB (CK-2) C-Reactive Protein Total Protein Albumin Vitamin B12 Urine WBC (Auto) Salicylates Acetaminophen Miscellaneous Test Crossmatch 04/24/19 04/24/19 04/24/19 06:01 06:39 14:51 WBC RBC Hgb Hct MCV MCH MCHC RDW Plt Count Lymph % (Auto) [place] % (Auto) Lymph # Seg Neutrophils % Seg Neuts % (Manual) Lymphocytes % (Manual) Nucleated RBC % Seg Neutrophils # Seg Neutrophils # Man Lymphocytes # (Manual) Monocytes # (Manual) PT INR APTT D-Dimer POC ABG pH ABG pH POC ABG pCO2 POC ABG pO2 ABG pO2 ABG HCO3 ABG O2 Saturation ABG Base Excess ABG Hemoglobin VBG pH Oxyhemoglobin Sodium Potassium Chloride Carbon Dioxide BUN Creatinine Glucose POC Glucose 65 L 125 H 207 H Hemoglobin A1c Lactic Acid Calcium Phosphorus Magnesium Iron TIBC Direct Bilirubin AST ALT Alkaline Phosphatase Total Creatine Kinase CK-MB (CK-2) C-Reactive Protein Total Protein Albumin Vitamin B12 Urine WBC (Auto) Salicylates Acetaminophen Miscellaneous Test Crossmatch 04/24/19 04/25/19 04/25/19 18:03 01:46 05:56 WBC RBC Hgb Hct MCV MCH MCHC RDW Plt Count Lymph % (Auto) [place] % (Auto) Lymph # Seg Neutrophils % Seg Neuts % (Manual) Lymphocytes % (Manual) Nucleated RBC % Seg Neutrophils # Seg Neutrophils # Man Lymphocytes # (Manual) Monocytes # (Manual) PT INR APTT D-Dimer POC ABG pH ABG pH POC ABG pCO2 POC ABG pO2 ABG pO2 ABG HCO3 ABG O2 Saturation ABG Base Excess ABG Hemoglobin VBG pH Oxyhemoglobin Sodium Potassium Chloride Carbon Dioxide BUN Creatinine Glucose POC Glucose 140 H 125 H 208 H Hemoglobin A1c Lactic Acid Calcium Phosphorus Magnesium Iron TIBC Direct Bilirubin AST ALT Alkaline Phosphatase Total Creatine Kinase CK-MB (CK-2) C-Reactive Protein Total Protein Albumin Vitamin B12 Urine WBC (Auto) Salicylates Acetaminophen Miscellaneous Test Crossmatch 04/25/19 04/25/19 04/25/19 08:12 13:06 18:04 WBC RBC Hgb Hct MCV MCH MCHC RDW Plt Count Lymph % (Auto) [place] % (Auto) Lymph # Seg Neutrophils % Seg Neuts % (Manual) Lymphocytes % (Manual) Nucleated RBC % Seg Neutrophils # Seg Neutrophils # Man Lymphocytes # (Manual) Monocytes # (Manual) PT INR APTT D-Dimer POC ABG pH ABG pH POC ABG pCO2 POC ABG pO2 ABG pO2 ABG HCO3 ABG O2 Saturation ABG Base Excess ABG Hemoglobin VBG pH Oxyhemoglobin Sodium Potassium Chloride Carbon Dioxide BUN Creatinine Glucose POC Glucose 127 H 147 H 340 H Hemoglobin A1c Lactic Acid Calcium Phosphorus Magnesium Iron TIBC Direct Bilirubin AST ALT Alkaline Phosphatase Total Creatine Kinase CK-MB (CK-2) C-Reactive Protein Total Protein Albumin Vitamin B12 Urine WBC (Auto) Salicylates Acetaminophen Miscellaneous Test Crossmatch 04/26/19 04/26/19 04/26/19 00:16 05:15 11:26 WBC RBC Hgb Hct MCV MCH MCHC RDW Plt Count Lymph % (Auto) [place] % (Auto) Lymph # Seg Neutrophils % Seg Neuts % (Manual) Lymphocytes % (Manual) Nucleated RBC % Seg Neutrophils # Seg Neutrophils # Man Lymphocytes # (Manual) Monocytes # (Manual) PT INR APTT D-Dimer POC ABG pH ABG pH POC ABG pCO2 POC ABG pO2 ABG pO2 ABG HCO3 ABG O2 Saturation ABG Base Excess ABG Hemoglobin VBG pH Oxyhemoglobin Sodium Potassium Chloride Carbon Dioxide BUN Creatinine Glucose POC Glucose 137 H 136 H 365 H Hemoglobin A1c Lactic Acid Calcium Phosphorus Magnesium Iron TIBC Direct Bilirubin AST ALT Alkaline Phosphatase Total Creatine Kinase CK-MB (CK-2) C-Reactive Protein Total Protein Albumin Vitamin B12 Urine WBC (Auto) Salicylates Acetaminophen Miscellaneous Test Crossmatch 04/26/19 04/26/19 04/27/19 18:03 21:30 06:14 WBC RBC Hgb Hct MCV MCH MCHC RDW Plt Count Lymph % (Auto) [place] % (Auto) Lymph # Seg Neutrophils % Seg Neuts % (Manual) Lymphocytes % (Manual) Nucleated RBC % Seg Neutrophils # Seg Neutrophils # Man Lymphocytes # (Manual) Monocytes # (Manual) PT INR APTT D-Dimer POC ABG pH ABG pH POC ABG pCO2 POC ABG pO2 ABG pO2 ABG HCO3 ABG O2 Saturation ABG Base Excess ABG Hemoglobin VBG pH Oxyhemoglobin Sodium Potassium Chloride Carbon Dioxide BUN Creatinine Glucose POC Glucose 124 H 231 H 199 H Hemoglobin A1c Lactic Acid Calcium Phosphorus Magnesium Iron TIBC Direct Bilirubin AST ALT Alkaline Phosphatase Total Creatine Kinase CK-MB (CK-2) C-Reactive Protein Total Protein Albumin Vitamin B12 Urine WBC (Auto) Salicylates Acetaminophen Miscellaneous Test Crossmatch 04/27/19 04/27/19 04/28/19 16:39 22:22 05:55 WBC RBC Hgb Hct MCV MCH MCHC RDW Plt Count Lymph % (Auto) [place] % (Auto) Lymph # Seg Neutrophils % Seg Neuts % (Manual) Lymphocytes % (Manual) Nucleated RBC % Seg Neutrophils # Seg Neutrophils # Man Lymphocytes # (Manual) Monocytes # (Manual) PT INR APTT D-Dimer POC ABG pH ABG pH POC ABG pCO2 POC ABG pO2 ABG pO2 ABG HCO3 ABG O2 Saturation ABG Base Excess ABG Hemoglobin VBG pH Oxyhemoglobin Sodium Potassium Chloride Carbon Dioxide BUN Creatinine Glucose POC Glucose 171 H 183 H 207 H Hemoglobin A1c Lactic Acid Calcium Phosphorus Magnesium Iron TIBC Direct Bilirubin AST ALT Alkaline Phosphatase Total Creatine Kinase CK-MB (CK-2) C-Reactive Protein Total Protein Albumin Vitamin B12 Urine WBC (Auto) Salicylates Acetaminophen Miscellaneous Test Crossmatch 04/28/19 04/28/19 04/29/19 12:30 17:07 00:03 WBC RBC Hgb Hct MCV MCH MCHC RDW Plt Count Lymph % (Auto) [place] % (Auto) Lymph # Seg Neutrophils % Seg Neuts % (Manual) Lymphocytes % (Manual) Nucleated RBC % Seg Neutrophils # Seg Neutrophils # Man Lymphocytes # (Manual) Monocytes # (Manual) PT INR APTT D-Dimer POC ABG pH ABG pH POC ABG pCO2 POC ABG pO2 ABG pO2 ABG HCO3 ABG O2 Saturation ABG Base Excess ABG Hemoglobin VBG pH Oxyhemoglobin Sodium Potassium Chloride Carbon Dioxide BUN Creatinine Glucose POC Glucose 199 H 233 H 217 H Hemoglobin A1c Lactic Acid Calcium Phosphorus Magnesium Iron TIBC Direct Bilirubin AST ALT Alkaline Phosphatase Total Creatine Kinase CK-MB (CK-2) C-Reactive Protein Total Protein Albumin Vitamin B12 Urine WBC (Auto) Salicylates Acetaminophen Miscellaneous Test Crossmatch 04/29/19 04/29/19 04/29/19 05:51 09:43 09:43 WBC RBC 3.36 L Hgb Hct MCV MCH MCHC RDW 16.3 H Plt Count Lymph % (Auto) 11.1 L [place] % (Auto) Lymph # Seg Neutrophils % 81.4 H Seg Neuts % (Manual) Lymphocytes % (Manual) Nucleated RBC % Seg Neutrophils # 9.0 H Seg Neutrophils # Man Lymphocytes # (Manual) Monocytes # (Manual) PT INR APTT D-Dimer POC ABG pH ABG pH POC ABG pCO2 POC ABG pO2 ABG pO2 ABG HCO3 ABG O2 Saturation ABG Base Excess ABG Hemoglobin VBG pH Oxyhemoglobin Sodium Potassium Chloride Carbon Dioxide BUN 21 H Creatinine 0.3 L Glucose 316 H POC Glucose 149 H Hemoglobin A1c Lactic Acid Calcium Phosphorus Magnesium Iron TIBC Direct Bilirubin AST ALT Alkaline Phosphatase Total Creatine Kinase CK-MB (CK-2) C-Reactive Protein Total Protein Albumin Vitamin B12 Urine WBC (Auto) Salicylates Acetaminophen Miscellaneous Test Crossmatch 04/29/19 04/29/19 04/29/19 12:28 18:02 23:49 WBC RBC Hgb Hct MCV MCH MCHC RDW Plt Count Lymph % (Auto) [place] % (Auto) Lymph # Seg Neutrophils % Seg Neuts % (Manual) Lymphocytes % (Manual) Nucleated RBC % Seg Neutrophils # Seg Neutrophils # Man Lymphocytes # (Manual) Monocytes # (Manual) PT INR APTT D-Dimer POC ABG pH ABG pH POC ABG pCO2 POC ABG pO2 ABG pO2 ABG HCO3 ABG O2 Saturation ABG Base Excess ABG Hemoglobin VBG pH Oxyhemoglobin Sodium Potassium Chloride Carbon Dioxide BUN Creatinine Glucose POC Glucose 368 H 185 H 137 H Hemoglobin A1c Lactic Acid Calcium Phosphorus Magnesium Iron TIBC Direct Bilirubin AST ALT Alkaline Phosphatase Total Creatine Kinase CK-MB (CK-2) C-Reactive Protein Total Protein Albumin Vitamin B12 Urine WBC (Auto) Salicylates Acetaminophen Miscellaneous Test Crossmatch 04/30/19 04/30/19 04/30/19 05:56 09:08 09:08 WBC RBC 3.48 L Hgb Hct MCV MCH MCHC RDW 15.9 H Plt Count Lymph % (Auto) [place] % (Auto) Lymph # Seg Neutrophils % 73.7 H Seg Neuts % (Manual) Lymphocytes % (Manual) Nucleated RBC % Seg Neutrophils # Seg Neutrophils # Man Lymphocytes # (Manual) Monocytes # (Manual) PT INR APTT D-Dimer POC ABG pH ABG pH POC ABG pCO2 POC ABG pO2 ABG pO2 ABG HCO3 ABG O2 Saturation ABG Base Excess ABG Hemoglobin VBG pH Oxyhemoglobin Sodium Potassium Chloride Carbon Dioxide BUN 25 H Creatinine 0.3 L Glucose 290 H POC Glucose 318 H Hemoglobin A1c Lactic Acid Calcium Phosphorus Magnesium Iron TIBC Direct Bilirubin AST ALT Alkaline Phosphatase Total Creatine Kinase CK-MB (CK-2) C-Reactive Protein Total Protein Albumin Vitamin B12 Urine WBC (Auto) Salicylates Acetaminophen Miscellaneous Test Crossmatch 04/30/19 04/30/19 04/30/19 11:32 17:19 21:36 WBC RBC Hgb Hct MCV MCH MCHC RDW Plt Count Lymph % (Auto) [place] % (Auto) Lymph # Seg Neutrophils % Seg Neuts % (Manual) Lymphocytes % (Manual) Nucleated RBC % Seg Neutrophils # Seg Neutrophils # Man Lymphocytes # (Manual) Monocytes # (Manual) PT INR APTT D-Dimer POC ABG pH ABG pH POC ABG pCO2 POC ABG pO2 ABG pO2 ABG HCO3 ABG O2 Saturation ABG Base Excess ABG Hemoglobin VBG pH Oxyhemoglobin Sodium Potassium Chloride Carbon Dioxide BUN Creatinine Glucose POC Glucose 225 H 110 H 371 H Hemoglobin A1c Lactic Acid Calcium Phosphorus Magnesium Iron TIBC Direct Bilirubin AST ALT Alkaline Phosphatase Total Creatine Kinase CK-MB (CK-2) C-Reactive Protein Total Protein Albumin Vitamin B12 Urine WBC (Auto) Salicylates Acetaminophen Miscellaneous Test Crossmatch 04/30/19 05/01/19 05/01/19 Unknown 05:29 11:44 WBC RBC Hgb Hct MCV MCH MCHC RDW Plt Count Lymph % (Auto) [place] % (Auto) Lymph # Seg Neutrophils % Seg Neuts % (Manual) Lymphocytes % (Manual) Nucleated RBC % Seg Neutrophils # Seg Neutrophils # Man Lymphocytes # (Manual) Monocytes # (Manual) PT INR APTT D-Dimer POC ABG pH ABG pH POC ABG pCO2 POC ABG pO2 ABG pO2 ABG HCO3 ABG O2 Saturation ABG Base Excess ABG Hemoglobin VBG pH Oxyhemoglobin Sodium Potassium Chloride Carbon Dioxide BUN Creatinine Glucose POC Glucose 386 H 227 H Hemoglobin A1c Lactic Acid Calcium Phosphorus Magnesium Iron TIBC Direct Bilirubin AST ALT Alkaline Phosphatase Total Creatine Kinase CK-MB (CK-2) C-Reactive Protein Total Protein Albumin Vitamin B12 Urine WBC (Auto) 17.0 H Salicylates Acetaminophen Miscellaneous Test Crossmatch 05/02/19 05/02/19 05/03/19 05:51 11:21 00:25 WBC RBC Hgb Hct MCV MCH MCHC RDW Plt Count Lymph % (Auto) [place] % (Auto) Lymph # Seg Neutrophils % Seg Neuts % (Manual) Lymphocytes % (Manual) Nucleated RBC % Seg Neutrophils # Seg Neutrophils # Man Lymphocytes # (Manual) Monocytes # (Manual) PT INR APTT D-Dimer POC ABG pH ABG pH POC ABG pCO2 POC ABG pO2 ABG pO2 ABG HCO3 ABG O2 Saturation ABG Base Excess ABG Hemoglobin VBG pH Oxyhemoglobin Sodium Potassium Chloride Carbon Dioxide BUN Creatinine Glucose POC Glucose 280 H 191 H 262 H Hemoglobin A1c Lactic Acid Calcium Phosphorus Magnesium Iron TIBC Direct Bilirubin AST ALT Alkaline Phosphatase Total Creatine Kinase CK-MB (CK-2) C-Reactive Protein Total Protein Albumin Vitamin B12 Urine WBC (Auto) Salicylates Acetaminophen Miscellaneous Test Crossmatch 05/03/19 05/03/19 05/03/19 04:57 04:57 06:20 WBC RBC 3.45 L Hgb Hct MCV MCH MCHC RDW 15.5 H Plt Count Lymph % (Auto) [place] % (Auto) 7.6 H Lymph # Seg Neutrophils % Seg Neuts % (Manual) Lymphocytes % (Manual) Nucleated RBC % Seg Neutrophils # Seg Neutrophils # Man Lymphocytes # (Manual) Monocytes # (Manual) PT INR APTT D-Dimer POC ABG pH ABG pH POC ABG pCO2 POC ABG pO2 ABG pO2 ABG HCO3 ABG O2 Saturation ABG Base Excess ABG Hemoglobin VBG pH Oxyhemoglobin Sodium Potassium Chloride Carbon Dioxide BUN 23 H Creatinine 0.2 L Glucose 101 H POC Glucose 131 H Hemoglobin A1c Lactic Acid Calcium Phosphorus Magnesium Iron TIBC Direct Bilirubin AST ALT Alkaline Phosphatase Total Creatine Kinase CK-MB (CK-2) C-Reactive Protein Total Protein Albumin Vitamin B12 Urine WBC (Auto) Salicylates Acetaminophen Miscellaneous Test Crossmatch 05/03/19 05/04/19 05/04/19 23:58 12:05 16:56 WBC RBC Hgb Hct MCV MCH MCHC RDW Plt Count Lymph % (Auto) [place] % (Auto) Lymph # Seg Neutrophils % Seg Neuts % (Manual) Lymphocytes % (Manual) Nucleated RBC % Seg Neutrophils # Seg Neutrophils # Man Lymphocytes # (Manual) Monocytes # (Manual) PT INR APTT D-Dimer POC ABG pH ABG pH POC ABG pCO2 POC ABG pO2 ABG pO2 ABG HCO3 ABG O2 Saturation ABG Base Excess ABG Hemoglobin VBG pH Oxyhemoglobin Sodium Potassium Chloride Carbon Dioxide BUN Creatinine Glucose POC Glucose 160 H 128 H 116 H Hemoglobin A1c Lactic Acid Calcium Phosphorus Magnesium Iron TIBC Direct Bilirubin AST ALT Alkaline Phosphatase Total Creatine Kinase CK-MB (CK-2) C-Reactive Protein Total Protein Albumin Vitamin B12 Urine WBC (Auto) Salicylates Acetaminophen Miscellaneous Test Crossmatch 05/04/19 05/05/19 05/05/19 23:31 03:24 11:43 WBC RBC Hgb Hct MCV MCH MCHC RDW Plt Count Lymph % (Auto) [place] % (Auto) Lymph # Seg Neutrophils % Seg Neuts % (Manual) Lymphocytes % (Manual) Nucleated RBC % Seg Neutrophils # Seg Neutrophils # Man Lymphocytes # (Manual) Monocytes # (Manual) PT INR APTT D-Dimer POC ABG pH ABG pH POC ABG pCO2 POC ABG pO2 ABG pO2 ABG HCO3 ABG O2 Saturation ABG Base Excess ABG Hemoglobin VBG pH Oxyhemoglobin Sodium Potassium Chloride Carbon Dioxide BUN Creatinine Glucose POC Glucose 204 H 194 H 202 H Hemoglobin A1c Lactic Acid Calcium Phosphorus Magnesium Iron TIBC Direct Bilirubin AST ALT Alkaline Phosphatase Total Creatine Kinase CK-MB (CK-2) C-Reactive Protein Total Protein Albumin Vitamin B12 Urine WBC (Auto) Salicylates Acetaminophen Miscellaneous Test Crossmatch 05/05/19 05/06/19 05/06/19 21:07 05:16 17:08 WBC RBC Hgb Hct MCV MCH MCHC RDW Plt Count Lymph % (Auto) [place] % (Auto) Lymph # Seg Neutrophils % Seg Neuts % (Manual) Lymphocytes % (Manual) Nucleated RBC % Seg Neutrophils # Seg Neutrophils # Man Lymphocytes # (Manual) Monocytes # (Manual) PT INR APTT D-Dimer POC ABG pH ABG pH POC ABG pCO2 POC ABG pO2 ABG pO2 ABG HCO3 ABG O2 Saturation ABG Base Excess ABG Hemoglobin VBG pH Oxyhemoglobin Sodium Potassium Chloride Carbon Dioxide BUN Creatinine Glucose POC Glucose 128 H 239 H 64 L Hemoglobin A1c Lactic Acid Calcium Phosphorus Magnesium Iron TIBC Direct Bilirubin AST ALT Alkaline Phosphatase Total Creatine Kinase CK-MB (CK-2) C-Reactive Protein Total Protein Albumin Vitamin B12 Urine WBC (Auto) Salicylates Acetaminophen Miscellaneous Test Crossmatch 05/07/19 05/07/19 05/07/19 05:12 08:00 12:13 WBC RBC Hgb Hct MCV MCH MCHC RDW Plt Count Lymph % (Auto) [place] % (Auto) Lymph # Seg Neutrophils % Seg Neuts % (Manual) Lymphocytes % (Manual) Nucleated RBC % Seg Neutrophils # Seg Neutrophils # Man Lymphocytes # (Manual) Monocytes # (Manual) PT INR APTT D-Dimer POC ABG pH ABG pH POC ABG pCO2 POC ABG pO2 ABG pO2 ABG HCO3 ABG O2 Saturation ABG Base Excess ABG Hemoglobin VBG pH Oxyhemoglobin Sodium Potassium Chloride Carbon Dioxide BUN Creatinine Glucose POC Glucose 315 H 193 H 129 H Hemoglobin A1c Lactic Acid Calcium Phosphorus Magnesium Iron TIBC Direct Bilirubin AST ALT Alkaline Phosphatase Total Creatine Kinase CK-MB (CK-2) C-Reactive Protein Total Protein Albumin Vitamin B12 Urine WBC (Auto) Salicylates Acetaminophen Miscellaneous Test Crossmatch 05/07/19 05/07/19 05/08/19 17:00 22:58 00:38 WBC RBC Hgb Hct MCV MCH MCHC RDW Plt Count Lymph % (Auto) [place] % (Auto) Lymph # Seg Neutrophils % Seg Neuts % (Manual) Lymphocytes % (Manual) Nucleated RBC % Seg Neutrophils # Seg Neutrophils # Man Lymphocytes # (Manual) Monocytes # (Manual) PT INR APTT D-Dimer POC ABG pH ABG pH POC ABG pCO2 POC ABG pO2 ABG pO2 ABG HCO3 ABG O2 Saturation ABG Base Excess ABG Hemoglobin VBG pH Oxyhemoglobin Sodium Potassium Chloride Carbon Dioxide BUN Creatinine Glucose POC Glucose 331 H 341 H 369 H Hemoglobin A1c Lactic Acid Calcium Phosphorus Magnesium Iron TIBC Direct Bilirubin AST ALT Alkaline Phosphatase Total Creatine Kinase CK-MB (CK-2) C-Reactive Protein Total Protein Albumin Vitamin B12 Urine WBC (Auto) Salicylates Acetaminophen Miscellaneous Test Crossmatch 05/08/19 05/08/19 05/08/19 06:06 07:58 12:38 WBC RBC Hgb Hct MCV MCH MCHC RDW Plt Count Lymph % (Auto) [place] % (Auto) Lymph # Seg Neutrophils % Seg Neuts % (Manual) Lymphocytes % (Manual) Nucleated RBC % Seg Neutrophils # Seg Neutrophils # Man Lymphocytes # (Manual) Monocytes # (Manual) PT INR APTT D-Dimer POC ABG pH ABG pH POC ABG pCO2 POC ABG pO2 ABG pO2 ABG HCO3 ABG O2 Saturation ABG Base Excess ABG Hemoglobin VBG pH Oxyhemoglobin Sodium Potassium Chloride Carbon Dioxide BUN Creatinine Glucose POC Glucose 191 H 165 H 296 H Hemoglobin A1c Lactic Acid Calcium Phosphorus Magnesium Iron TIBC Direct Bilirubin AST ALT Alkaline Phosphatase Total Creatine Kinase CK-MB (CK-2) C-Reactive Protein Total Protein Albumin Vitamin B12 Urine WBC (Auto) Salicylates Acetaminophen Miscellaneous Test Crossmatch 05/08/19 05/08/19 05/09/19 18:02 21:56 00:18 WBC RBC Hgb Hct MCV MCH MCHC RDW Plt Count Lymph % (Auto) [place] % (Auto) Lymph # Seg Neutrophils % Seg Neuts % (Manual) Lymphocytes % (Manual) Nucleated RBC % Seg Neutrophils # Seg Neutrophils # Man Lymphocytes # (Manual) Monocytes # (Manual) PT INR APTT D-Dimer POC ABG pH ABG pH POC ABG pCO2 POC ABG pO2 ABG pO2 ABG HCO3 ABG O2 Saturation ABG Base Excess ABG Hemoglobin VBG pH Oxyhemoglobin Sodium Potassium Chloride Carbon Dioxide BUN Creatinine Glucose POC Glucose 247 H 212 H 182 H Hemoglobin A1c Lactic Acid Calcium Phosphorus Magnesium Iron TIBC Direct Bilirubin AST ALT Alkaline Phosphatase Total Creatine Kinase CK-MB (CK-2) C-Reactive Protein Total Protein Albumin Vitamin B12 Urine WBC (Auto) Salicylates Acetaminophen Miscellaneous Test Crossmatch 05/09/19 05/09/19 05/09/19 04:30 04:30 04:30 WBC RBC Hgb Hct MCV MCH MCHC RDW Plt Count Lymph % (Auto) [place] % (Auto) 10.1 H Lymph # Seg Neutrophils % Seg Neuts % (Manual) Lymphocytes % (Manual) Nucleated RBC % Seg Neutrophils # Seg Neutrophils # Man Lymphocytes # (Manual) Monocytes # (Manual) PT INR APTT D-Dimer POC ABG pH ABG pH POC ABG pCO2 POC ABG pO2 ABG pO2 ABG HCO3 ABG O2 Saturation ABG Base Excess ABG Hemoglobin VBG pH Oxyhemoglobin Sodium Potassium Chloride Carbon Dioxide BUN 19 H Creatinine 0.2 L Glucose 108 H POC Glucose Hemoglobin A1c 6.3 H Lactic Acid Calcium Phosphorus Magnesium Iron TIBC Direct Bilirubin AST ALT Alkaline Phosphatase Total Creatine Kinase CK-MB (CK-2) C-Reactive Protein Total Protein Albumin Vitamin B12 Urine WBC (Auto) Salicylates Acetaminophen Miscellaneous Test Crossmatch 05/09/19 05/09/19 05/09/19 05:27 11:52 17:43 WBC RBC Hgb Hct MCV MCH MCHC RDW Plt Count Lymph % (Auto) [place] % (Auto) Lymph # Seg Neutrophils % Seg Neuts % (Manual) Lymphocytes % (Manual) Nucleated RBC % Seg Neutrophils # Seg Neutrophils # Man Lymphocytes # (Manual) Monocytes # (Manual) PT INR APTT D-Dimer POC ABG pH ABG pH POC ABG pCO2 POC ABG pO2 ABG pO2 ABG HCO3 ABG O2 Saturation ABG Base Excess ABG Hemoglobin VBG pH Oxyhemoglobin Sodium Potassium Chloride Carbon Dioxide BUN Creatinine Glucose POC Glucose 115 H 171 H 113 H Hemoglobin A1c Lactic Acid Calcium Phosphorus Magnesium Iron TIBC Direct Bilirubin AST ALT Alkaline Phosphatase Total Creatine Kinase CK-MB (CK-2) C-Reactive Protein Total Protein Albumin Vitamin B12 Urine WBC (Auto) Salicylates Acetaminophen Miscellaneous Test Crossmatch 05/09/19 05/10/19 05/10/19 23:53 06:30 11:39 WBC RBC Hgb Hct MCV MCH MCHC RDW Plt Count Lymph % (Auto) [place] % (Auto) Lymph # Seg Neutrophils % Seg Neuts % (Manual) Lymphocytes % (Manual) Nucleated RBC % Seg Neutrophils # Seg Neutrophils # Man Lymphocytes # (Manual) Monocytes # (Manual) PT INR APTT D-Dimer POC ABG pH ABG pH POC ABG pCO2 POC ABG pO2 ABG pO2 ABG HCO3 ABG O2 Saturation ABG Base Excess ABG Hemoglobin VBG pH Oxyhemoglobin Sodium Potassium Chloride Carbon Dioxide BUN Creatinine Glucose POC Glucose 274 H 160 H 150 H Hemoglobin A1c Lactic Acid Calcium Phosphorus Magnesium Iron TIBC Direct Bilirubin AST ALT Alkaline Phosphatase Total Creatine Kinase CK-MB (CK-2) C-Reactive Protein Total Protein Albumin Vitamin B12 Urine WBC (Auto) Salicylates Acetaminophen Miscellaneous Test Crossmatch 05/10/19 05/11/19 05/11/19 16:45 00:25 06:40 WBC RBC Hgb Hct MCV MCH MCHC RDW Plt Count Lymph % (Auto) [place] % (Auto) Lymph # Seg Neutrophils % Seg Neuts % (Manual) Lymphocytes % (Manual) Nucleated RBC % Seg Neutrophils # Seg Neutrophils # Man Lymphocytes # (Manual) Monocytes # (Manual) PT INR APTT D-Dimer POC ABG pH ABG pH POC ABG pCO2 POC ABG pO2 ABG pO2 ABG HCO3 ABG O2 Saturation ABG Base Excess ABG Hemoglobin VBG pH Oxyhemoglobin Sodium Potassium Chloride Carbon Dioxide BUN Creatinine Glucose POC Glucose 176 H 114 H 63 L Hemoglobin A1c Lactic Acid Calcium Phosphorus Magnesium Iron TIBC Direct Bilirubin AST ALT Alkaline Phosphatase Total Creatine Kinase CK-MB (CK-2) C-Reactive Protein Total Protein Albumin Vitamin B12 Urine WBC (Auto) Salicylates Acetaminophen Miscellaneous Test Crossmatch 05/11/19 05/11/19 05/11/19 12:18 17:00 23:46 WBC RBC Hgb Hct MCV MCH MCHC RDW Plt Count Lymph % (Auto) [place] % (Auto) Lymph # Seg Neutrophils % Seg Neuts % (Manual) Lymphocytes % (Manual) Nucleated RBC % Seg Neutrophils # Seg Neutrophils # Man Lymphocytes # (Manual) Monocytes # (Manual) PT INR APTT D-Dimer POC ABG pH ABG pH POC ABG pCO2 POC ABG pO2 ABG pO2 ABG HCO3 ABG O2 Saturation ABG Base Excess ABG Hemoglobin VBG pH Oxyhemoglobin Sodium Potassium Chloride Carbon Dioxide BUN Creatinine Glucose POC Glucose 142 H 192 H 286 H Hemoglobin A1c Lactic Acid Calcium Phosphorus Magnesium Iron TIBC Direct Bilirubin AST ALT Alkaline Phosphatase Total Creatine Kinase CK-MB (CK-2) C-Reactive Protein Total Protein Albumin Vitamin B12 Urine WBC (Auto) Salicylates Acetaminophen Miscellaneous Test Crossmatch 05/12/19 05/12/19 05/12/19 05:05 11:48 17:28 WBC RBC Hgb Hct MCV MCH MCHC RDW Plt Count Lymph % (Auto) [place] % (Auto) Lymph # Seg Neutrophils % Seg Neuts % (Manual) Lymphocytes % (Manual) Nucleated RBC % Seg Neutrophils # Seg Neutrophils # Man Lymphocytes # (Manual) Monocytes # (Manual) PT INR APTT D-Dimer POC ABG pH ABG pH POC ABG pCO2 POC ABG pO2 ABG pO2 ABG HCO3 ABG O2 Saturation ABG Base Excess ABG Hemoglobin VBG pH Oxyhemoglobin Sodium Potassium Chloride Carbon Dioxide BUN Creatinine Glucose POC Glucose 174 H 235 H 410 H Hemoglobin A1c Lactic Acid Calcium Phosphorus Magnesium Iron TIBC Direct Bilirubin AST ALT Alkaline Phosphatase Total Creatine Kinase CK-MB (CK-2) C-Reactive Protein Total Protein Albumin Vitamin B12 Urine WBC (Auto) Salicylates Acetaminophen Miscellaneous Test Crossmatch 05/12/19 05/13/19 05/13/19 23:41 05:15 11:16 WBC RBC Hgb Hct MCV MCH MCHC RDW Plt Count Lymph % (Auto) [place] % (Auto) Lymph # Seg Neutrophils % Seg Neuts % (Manual) Lymphocytes % (Manual) Nucleated RBC % Seg Neutrophils # Seg Neutrophils # Man Lymphocytes # (Manual) Monocytes # (Manual) PT INR APTT D-Dimer POC ABG pH ABG pH POC ABG pCO2 POC ABG pO2 ABG pO2 ABG HCO3 ABG O2 Saturation ABG Base Excess ABG Hemoglobin VBG pH Oxyhemoglobin Sodium Potassium Chloride Carbon Dioxide BUN Creatinine Glucose POC Glucose 176 H 148 H 229 H Hemoglobin A1c Lactic Acid Calcium Phosphorus Magnesium Iron TIBC Direct Bilirubin AST ALT Alkaline Phosphatase Total Creatine Kinase CK-MB (CK-2) C-Reactive Protein Total Protein Albumin Vitamin B12 Urine WBC (Auto) Salicylates Acetaminophen Miscellaneous Test Crossmatch Allied health notes reviewed: nursing
[2019-05-13] MEDS: LANTUS SUB-Q SCH (22:41)
[2019-05-13] MEDS: TYLENOL PO PRN (22:45)
[2019-05-14] MEDS: HumaLOG SUB-Q SCH ×6 (00:47→23:16)
[2019-05-14] MEDS: ROBINUL FEEDTUBE SCH ×3 (08:00→23:11)
[2019-05-14] MEDS: PEPCID PO SCH ×2 (10:44→23:12)
[2019-05-14] MEDS: KEPPRA PO SCH ×2 (10:45→23:12)
[2019-05-14] MEDS: PROVIGIL PO SCH (10:45)
[2019-05-14] MEDS: ENOXAPARIN SUB-Q SCH (10:45)
[2019-05-14] MEDS: METOPROLOL PO SCH ×2 (10:45→23:11)
[2019-05-14] MEDS: SODIUM CHLORIDE FLUSH SYRINGE 10 ML IV PRN (10:46)
[2019-05-14] MEDS: TRANSDERM-SCOP TD SCH (12:00)
--- NOTE | 2019-05-14 12:06 | Progress Note ---
Assessment and Plan Uncontrolled DM type 1 with hyperglycemia - cont. basal insulin Lantus - cont. SSI - adjust insulin dose as needed to prevent hypo/hyperglycemia Acute respiratory failure s/p intubated, off vent - s/p trach and peg, on 5 L of oxygen - Tracheostomy re-adjusted on 04/17/19 - Pulm following, on nebs - Aspiration precautions Acute anoxic encephalopathy, POA - from cardiac arrest - MR concerning for anoxic Brain injury Cardiac arrest s/p resuscitation - likely 2/2 severe hyperglycemia - preserved EF on 2D echo Generalized An[place]ara, stable now -Given a dose of Bumex s/p severe DKA, resolved - BG was 2200 on admission Shock hypotensive +/- sepsis - resolved Now off pressors. Was on vasopressin, Levophed, Phenylephrine Sepsis with possible aspiration PNA - evident on CXR on admission with left sided infiltrates - Competed abx - Leucocytosis and thrombocytosis are likely reactive from hepatic subcapsular hematoma -liver lesion not consistent with infection per ID UTI, Patient had low-grade temp 04/30/19 -UA suggestive of UTI -Urine culture showed enterococcus faecalis, and hanks sensitive. -Patient started on Rocephin on 05/01/19 - completed Head lice - multiple dosing of Permethin given, resolved Acute renal failure, likely vasomotor nephropathy - resolved Anemia, acute on chronic - no sign of blood loss - s/p 2 Units PRBC transfused Hyperkalemia, resolved with fluid and insulin Hypernatremia Resolved hypokalemia, resolved Shock liver with elevated LFT and Coagulopathy - due to cardiac arrest and hypotension - cont to monitor Liver lesion - ID Physician following - Discontinued abx, not consistent with infection as noted above Hypermagnesemia - monitor levels as needed Hyperphosphatemia -cont to monitor, improved Stage 1 sacral ulcer, poa - upper ext blisters - pressure ulcer prevention strategies - wound care VTE Prophylaxis with Lovenox Poor prognosis DNR status Disposition: continue inpatient care, await placement in [place], [place] [employer] plant [employer] in contact with the family for 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 Her last well-known time was 10:30 in the morning of presentation, she was traveling with a friend, she was unresponsive in the back seat. EMS was called, CPR was started and continued here in the emergency room. Patient was intubated in the ER, noted hypotensive started on dobutamine, epinephrine and Levophed drip, given IV fluids, found to be in DKA with BG ~2200, several metabolic derangements - placed on insulin drip and admitted to ICU. BP improved and she was weaned off pressors. Pt off pressors and extubated. Transferred to floor awaiting placement Subjective Date of service: 05/14/19 Principal diagnosis: Ac Hypoxemic Resp Failure; DKA; Severe sepsis with shock; ANGELICA Interval history: Patient seen and examined Patient remained on trach with t-piece no family members around, nonverbal and doesnot follow commend discussed with RN at bedside with plan of care Objective - Constitutional Vitals: Vital Signs - 12hr 05/14/19 05/14/19 05/14/19 00:15 05:31 08:31 Temperature 98.0 F Pulse Rate 100 H Respiratory 18 Rate Blood Pressure 117/80 O2 Sat by Pulse 98 100 99 Oximetry O2 Sat by Pulse Oximetry [ Assessment] 05/14/19 08:33 Temperature Pulse Rate Respiratory Rate Blood Pressure O2 Sat by Pulse Oximetry O2 Sat by Pulse 99 Oximetry [ Assessment] - Labs CBC & Chem 7: 05/09/19 04:30 05/09/19 04:30 Labs: Abnormal lab results 05/13/19 05/14/19 05/14/19 Range/Units 17:33 00:04 05:42 POC Glucose 108 H 246 H 144 H (70-105)
[2019-05-14] MEDS: DURAGESIC TD SCH (15:56)
[2019-05-14] MEDS: LANTUS SUB-Q SCH (23:10)
[2019-05-14] MEDS: TYLENOL PO PRN (23:10)
[2019-05-15] MEDS: HumaLOG SUB-Q SCH ×3 (05:50→17:36)
[2019-05-15] MEDS: ROBINUL FEEDTUBE SCH ×3 (08:00→20:48)
--- NOTE | 2019-05-15 09:34 | Progress Note ---
Assessment and Plan Patients condition same.Patient resting on T tube. Patient sleeping at this time. No acute respiratory distress.. Patient is on T tube, FIO2 28%. O2 saturation 98%.Patient afebrile and has no leukocytosis. Patient waiting for placement. - Patient Problems (1) Cardiac arrest Current Visit: Yes Status: Acute Plan to address problem: Patient resuscitated. Presently resting on T tube. No acute respiratory distress.; (2) Status post tracheostomy Current Visit: Yes Status: Acute Plan to address problem: Respiratory suctioning. Recommend trach care as per respiratory therapy protocol. (3) DKA, type 1 Current Visit: Yes Status: Acute Qualifiers: Diabetes mellitus complication detail: with coma Qualified Code(s): E10.11 - Type 1 diabetes mellitus with ketoacidosis with coma Plan to address problem: Management as per primary care. (4) Hypotension Current Visit: Yes Status: Acute Qualifiers: Hypotension type: unspecified hypotension type Qualified Code(s): I95.9 - Hypotension, unspecified Plan to address problem: Improved. Recent blood pressure 112/77 (5) Renal failure Current Visit: Yes Status: Acute Qualifiers: Renal failure chronicity: acute Acute renal failure type: unspecified Qualified Code(s): N17.9 - Acute kidney failure, unspecified Plan to address problem: Improved. Management as per primary care and nephrology . Subjective Date of service: 05/15/19 Principal diagnosis: Ac Hypoxemic Resp Failure; DKA; Severe sepsis with shock; ANGELICA Interval history: Patients condition same.Patient resting on T tube. Patient sleeping at this time. No acute respiratory distress.. Patient is on T tube, FIO2 28%. O2 saturation 98%.Patient afebrile and has no leukocytosis. Patient waiting for placement. Objective Vital Signs - 12hr 05/14/19 05/14/19 05/14/19 22:00 22:10 23:10 Temperature Pulse Rate Pulse Rate [ 108 H Apical] Respiratory 20 220 H Rate Blood Pressure O2 Sat by Pulse 99 Oximetry O2 Sat by Pulse Oximetry [ Assessment] 05/15/19 05/15/19 05/15/19 00:10 05:03 08:00 Temperature 99.3 F Pulse Rate 112 H Pulse Rate [ Apical] Respiratory 18 20 Rate Blood Pressure 118/83 O2 Sat by Pulse 96 Oximetry O2 Sat by Pulse 98 Oximetry [ Assessment] 05/15/19 09:04 Temperature Pulse Rate Pulse Rate [ Apical] Respiratory Rate Blood Pressure O2 Sat by Pulse 98 Oximetry O2 Sat by Pulse Oximetry [ Assessment] Constitutional: no acute distress, other (Patient awake. Not following commands.) Eyes: non-icteric ENT: oropharynx moist Neck: supple, no lymphadenopathy, no JVD, other (midline trach tube) Effort: normal Ascultation: Bilateral: diminished breath sounds, rhonchi (scant) Percussion: Bilateral: not dull Cardiovascular: regular rate and rhythm, other (S1,S2) Gastrointestinal: normoactive bowel sounds, soft, non-tender, non-distended, other (PEG tube) Integumentary: normal Extremities: no cyanosis, no edema, pink and warm, pulses normal, no ischemia or petechiae Neurologic: unable to assess (awake, alert, not obeying commands) Psychiatric: other (unable to assess) CBC and BMP: 05/09/19 04:30 05/09/19 04:30 ABG, PT/INR, D-dimer: ABG POC ABG pH 7.565 (7.35-7.45) H 04/19/19 04:35 ABG pH 7.396 pH Units (7.350-7.450) 04/03/19 05:35 POC ABG pCO2 36.2 (35-45) 04/19/19 04:35 ABG pCO2 32.2 mm Hg 04/03/19 05:35 POC ABG pO2 88 (80-105) 04/19/19 04:35 ABG pO2 97.7 mm Hg (80.0-90.0) H 04/03/19 05:35 POC ABG HCO3 32.8 (22-26 mml/L) 04/19/19 04:35 POC ABG Total CO2 34 (23-27mmol/L) 04/19/19 04:35 POC ABG O2 Sat 98 04/19/19 04:35 ABG O2 Saturation 97.6 % (95.0-99.0) 04/03/19 05:35 PT/INR, D-dimer PT 13.9 Sec. (12.2-14.9) 04/01/19 17:14 INR 1.10 (0.87-1.13) 04/01/19 17:14 D-Dimer 4526.86 ng/mlDDU (0-234) H 04/06/19 00:06 Abnormal lab findings: Abnormal Labs 03/29/19 03/29/19 03/29/19 19:11 19:20 19:20 WBC 26.7 H RBC 2.52 L Hgb 8.1 L Hct MCV 148 H MCH MCHC 22 L RDW 18.5 H Plt Count Lymph % (Auto) [place] % (Auto) Lymph # Seg Neutrophils % Seg Neuts % (Manual) 82.0 H Lymphocytes % (Manual) 7.0 L Nucleated RBC % Seg Neutrophils # Seg Neutrophils # Man 21.9 H Lymphocytes # (Manual) Monocytes # (Manual) 1.9 H PT 21.8 H INR 1.95 H APTT 74.5 H* D-Dimer POC ABG pH ABG pH POC ABG pCO2 POC ABG pO2 ABG pO2 ABG HCO3 ABG O2 Saturation ABG Base Excess ABG Hemoglobin VBG pH Oxyhemoglobin Sodium Potassium Chloride Carbon Dioxide BUN Creatinine Glucose POC Glucose > 500 H Hemoglobin A1c Lactic Acid Calcium Phosphorus Magnesium Iron TIBC Direct Bilirubin AST ALT Alkaline Phosphatase Total Creatine Kinase CK-MB (CK-2) C-Reactive Protein Total Protein Albumin Vitamin B12 Urine WBC (Auto) Salicylates Acetaminophen Miscellaneous Test Crossmatch 03/29/19 03/29/19 03/29/19 19:20 19:47 20:59 WBC RBC Hgb Hct MCV MCH MCHC RDW Plt Count Lymph % (Auto) [place] % (Auto) Lymph # Seg Neutrophils % Seg Neuts % (Manual) Lymphocytes % (Manual) Nucleated RBC % Seg Neutrophils # Seg Neutrophils # Man Lymphocytes # (Manual) Monocytes # (Manual) PT INR APTT D-Dimer POC ABG pH 6.892 L ABG pH POC ABG pCO2 POC ABG pO2 236 H ABG pO2 ABG HCO3 ABG O2 Saturation ABG Base Excess ABG Hemoglobin VBG pH 6.800 L* Oxyhemoglobin Sodium 118 L* Potassium 9.0 H* Chloride 64.5 L Carbon Dioxide 7 L* BUN 53 H Creatinine 2.1 H Glucose 2196 H* POC Glucose Hemoglobin A1c Lactic Acid Calcium 12.4 H* Phosphorus Magnesium Iron TIBC Direct Bilirubin AST 3900 H ALT 1034 H Alkaline Phosphatase 316 H Total Creatine Kinase CK-MB (CK-2) C-Reactive Protein Total Protein 5.1 L Albumin 2.8 L Vitamin B12 Urine WBC (Auto) Salicylates Acetaminophen Miscellaneous Test Crossmatch 03/29/19 03/29/19 03/29/19 22:45 22:45 22:45 WBC RBC Hgb Hct MCV MCH MCHC RDW Plt Count Lymph % (Auto) [place] % (Auto) Lymph # Seg Neutrophils % Seg Neuts % (Manual) Lymphocytes % (Manual) Nucleated RBC % Seg Neutrophils # Seg Neutrophils # Man Lymphocytes # (Manual) Monocytes # (Manual) PT INR APTT D-Dimer POC ABG pH ABG pH POC ABG pCO2 POC ABG pO2 ABG pO2 ABG HCO3 ABG O2 Saturation ABG Base Excess ABG Hemoglobin VBG pH Oxyhemoglobin Sodium 132 L D Potassium 7.0 H* Chloride 84.3 L Carbon Dioxide 3 L* BUN 48 H Creatinine 1.8 H Glucose 1779 H* POC Glucose Hemoglobin A1c Lactic Acid Calcium Phosphorus 21.70 H Magnesium 4.70 H Iron TIBC Direct Bilirubin AST ALT Alkaline Phosphatase Total Creatine Kinase 363 H CK-MB (CK-2) C-Reactive Protein Total Protein Albumin Vitamin B12 Urine WBC (Auto) Salicylates Acetaminophen Miscellaneous Test Crossmatch 03/29/19 03/29/19 03/30/19 Unknown Unknown 00:11 WBC RBC Hgb Hct MCV MCH MCHC RDW Plt Count Lymph % (Auto) [place] % (Auto) Lymph # Seg Neutrophils % Seg Neuts % (Manual) Lymphocytes % (Manual) Nucleated RBC % Seg Neutrophils # Seg Neutrophils # Man Lymphocytes # (Manual) Monocytes # (Manual) PT INR APTT D-Dimer POC ABG pH ABG pH POC ABG pCO2 POC ABG pO2 ABG pO2 ABG HCO3 ABG O2 Saturation ABG Base Excess ABG Hemoglobin VBG pH Oxyhemoglobin Sodium 122 L Potassium 7.9 H* 6.4 H* Chloride 75.3 L 89.7 L Carbon Dioxide 3 L* 12 L D BUN 52 H 46 H Creatinine 2.0 H 1.7 H Glucose 2043 H* 1591 H* POC Glucose Hemoglobin A1c Lactic Acid Calcium 7.8 L Phosphorus 19.30 H Magnesium 3.90 H Iron TIBC Direct Bilirubin AST ALT Alkaline Phosphatase Total Creatine Kinase CK-MB (CK-2) C-Reactive Protein Total Protein Albumin Vitamin B12 Urine WBC (Auto) Salicylates Acetaminophen Miscellaneous Test Crossmatch 03/30/19 03/30/19 03/30/19 00:11 02:14 02:14 WBC RBC Hgb Hct MCV MCH MCHC RDW Plt Count Lymph % (Auto) [place] % (Auto) Lymph # Seg Neutrophils % Seg Neuts % (Manual) Lymphocytes % (Manual) Nucleated RBC % Seg Neutrophils # Seg Neutrophils # Man Lymphocytes # (Manual) Monocytes # (Manual) PT INR APTT D-Dimer POC ABG pH ABG pH POC ABG pCO2 POC ABG pO2 ABG pO2 ABG HCO3 ABG O2 Saturation ABG Base Excess ABG Hemoglobin VBG pH Oxyhemoglobin Sodium Potassium Chloride Carbon Dioxide 9 L* BUN 45 H Creatinine 1.7 H Glucose 1155 H* POC Glucose Hemoglobin A1c Lactic Acid Calcium 7.9 L Phosphorus 10.90 H D 5.30 H D Magnesium 3.10 H 2.90 H Iron TIBC Direct Bilirubin AST ALT Alkaline Phosphatase Total Creatine Kinase CK-MB (CK-2) C-Reactive Protein Total Protein Albumin Vitamin B12 Urine WBC (Auto) Salicylates Acetaminophen Miscellaneous Test Crossmatch 03/30/19 03/30/19 03/30/19 03:15 03:30 04:23 WBC 18.0 H RBC 2.31 L Hgb 7.3 L Hct 23.8 L D MCV 103 H MCH MCHC RDW 17.1 H Plt Count Lymph % (Auto) [place] % (Auto) Lymph # Seg Neutrophils % Seg Neuts % (Manual) 79.0 H Lymphocytes % (Manual) Nucleated RBC % Seg Neutrophils # Seg Neutrophils # Man 14.2 H Lymphocytes # (Manual) Monocytes # (Manual) PT INR APTT D-Dimer POC ABG pH 7.251 L ABG pH POC ABG pCO2 POC ABG pO2 156 H ABG pO2 ABG HCO3 ABG O2 Saturation ABG Base Excess ABG Hemoglobin VBG pH Oxyhemoglobin Sodium Potassium Chloride Carbon Dioxide BUN Creatinine Glucose POC Glucose Hemoglobin A1c Lactic Acid Calcium Phosphorus Magnesium Iron TIBC Direct Bilirubin AST ALT Alkaline Phosphatase Total Creatine Kinase CK-MB (CK-2) C-Reactive Protein Total Protein Albumin Vitamin B12 Urine WBC (Auto) Salicylates Acetaminophen Miscellaneous Test Crossmatch See Detail 03/30/19 03/30/19 03/30/19 05:26 05:26 10:38 WBC RBC Hgb Hct MCV MCH MCHC RDW Plt Count Lymph % (Auto) [place] % (Auto) Lymph # Seg Neutrophils % Seg Neuts % (Manual) Lymphocytes % (Manual) Nucleated RBC % Seg Neutrophils # Seg Neutrophils # Man Lymphocytes # (Manual) Monocytes # (Manual) PT INR APTT D-Dimer POC ABG pH ABG pH POC ABG pCO2 POC ABG pO2 ABG pO2 ABG HCO3 ABG O2 Saturation ABG Base Excess ABG Hemoglobin VBG pH Oxyhemoglobin Sodium 158 H D Potassium 3.5 L Chloride 109.3 H Carbon Dioxide 19 L D BUN 40 H Creatinine 1.5 H Glucose 760 H* POC Glucose 380 H Hemoglobin A1c Lactic Acid Calcium 7.3 L Phosphorus Magnesium 2.60 H Iron TIBC Direct Bilirubin AST 28150 H ALT 2156 H Alkaline Phosphatase 271 H Total Creatine Kinase 2465 H CK-MB (CK-2) 52.7 H C-Reactive Protein Total Protein 4.5 L Albumin 2.4 L Vitamin B12 Urine WBC (Auto) Salicylates Acetaminophen Miscellaneous Test Crossmatch 03/30/19 03/30/19 03/30/19 11:08 12:25 12:57 WBC RBC Hgb Hct MCV MCH MCHC RDW Plt Count Lymph % (Auto) [place] % (Auto) Lymph # Seg Neutrophils % Seg Neuts % (Manual) Lymphocytes % (Manual) Nucleated RBC % Seg Neutrophils # Seg Neutrophils # Man Lymphocytes # (Manual) Monocytes # (Manual) PT INR APTT D-Dimer POC ABG pH ABG pH POC ABG pCO2 POC ABG pO2 ABG pO2 ABG HCO3 ABG O2 Saturation ABG Base Excess ABG Hemoglobin VBG pH Oxyhemoglobin Sodium 156 H Potassium 3.2 L Chloride 116.4 H Carbon Dioxide 21 L BUN 37 H Creatinine Glucose 162 H POC Glucose 263 H 196 H Hemoglobin A1c Lactic Acid Calcium 7.2 L Phosphorus Magnesium Iron TIBC Direct Bilirubin AST ALT Alkaline Phosphatase Total Creatine Kinase CK-MB (CK-2) C-Reactive Protein Total Protein Albumin Vitamin B12 Urine WBC (Auto) Salicylates Acetaminophen Miscellaneous Test Crossmatch 03/30/19 03/30/19 03/30/19 12:57 12:57 12:57 WBC RBC Hgb Hct MCV MCH MCHC RDW Plt Count Lymph % (Auto) [place] % (Auto) Lymph # Seg Neutrophils % Seg Neuts % (Manual) Lymphocytes % (Manual) Nucleated RBC % Seg Neutrophils # Seg Neutrophils # Man Lymphocytes # (Manual) Monocytes # (Manual) PT 21.0 H INR 1.86 H APTT D-Dimer POC ABG pH ABG pH POC ABG pCO2 POC ABG pO2 ABG pO2 ABG HCO3 ABG O2 Saturation ABG Base Excess ABG Hemoglobin VBG pH Oxyhemoglobin Sodium Potassium Chloride Carbon Dioxide BUN Creatinine Glucose POC Glucose Hemoglobin A1c Lactic Acid 9.00 H* Calcium Phosphorus Magnesium Iron TIBC Direct Bilirubin AST ALT Alkaline Phosphatase Total Creatine Kinase CK-MB (CK-2) C-Reactive Protein 2.40 H Total Protein Albumin Vitamin B12 Urine WBC (Auto) Salicylates Acetaminophen Miscellaneous Test Crossmatch 03/30/19 03/30/19 03/30/19 13:23 14:00 14:47 WBC RBC Hgb Hct MCV MCH MCHC RDW Plt Count Lymph % (Auto) [place] % (Auto) Lymph # Seg Neutrophils % Seg Neuts % (Manual) Lymphocytes % (Manual) Nucleated RBC % Seg Neutrophils # Seg Neutrophils # Man Lymphocytes # (Manual) Monocytes # (Manual) PT INR APTT D-Dimer POC ABG pH ABG pH POC ABG pCO2 POC ABG pO2 ABG pO2 ABG HCO3 ABG O2 Saturation ABG Base Excess ABG Hemoglobin VBG pH Oxyhemoglobin Sodium Potassium Chloride Carbon Dioxide BUN Creatinine Glucose POC Glucose 176 H 245 H Hemoglobin A1c Lactic Acid Calcium Phosphorus Magnesium Iron TIBC Direct Bilirubin AST ALT Alkaline Phosphatase Total Creatine Kinase CK-MB (CK-2) C-Reactive Protein Total Protein Albumin Vitamin B12 Urine WBC (Auto) Salicylates Acetaminophen Miscellaneous Test Flexitest 1 H Crossmatch 03/30/19 03/30/19 03/30/19 16:11 17:11 17:46 WBC RBC Hgb Hct MCV MCH MCHC RDW Plt Count Lymph % (Auto) [place] % (Auto) Lymph # Seg Neutrophils % Seg Neuts % (Manual) Lymphocytes % (Manual) Nucleated RBC % Seg Neutrophils # Seg Neutrophils # Man Lymphocytes # (Manual) Monocytes # (Manual) PT INR APTT D-Dimer POC ABG pH ABG pH POC ABG pCO2 POC ABG pO2 ABG pO2 ABG HCO3 ABG O2 Saturation ABG Base Excess ABG Hemoglobin VBG pH Oxyhemoglobin Sodium Potassium Chloride Carbon Dioxide BUN Creatinine Glucose POC Glucose 181 H 167 H 125 H Hemoglobin A1c Lactic Acid Calcium Phosphorus Magnesium Iron TIBC Direct Bilirubin AST ALT Alkaline Phosphatase Total Creatine Kinase CK-MB (CK-2) C-Reactive Protein Total Protein Albumin Vitamin B12 Urine WBC (Auto) Salicylates Acetaminophen Miscellaneous Test Crossmatch 03/30/19 03/30/19 03/30/19 18:59 21:31 22:19 WBC RBC Hgb Hct MCV MCH MCHC RDW Plt Count Lymph % (Auto) [place] % (Auto) Lymph # Seg Neutrophils % Seg Neuts % (Manual) Lymphocytes % (Manual) Nucleated RBC % Seg Neutrophils # Seg Neutrophils # Man Lymphocytes # (Manual) Monocytes # (Manual) PT INR APTT D-Dimer POC ABG pH ABG pH POC ABG pCO2 POC ABG pO2 ABG pO2 ABG HCO3 ABG O2 Saturation ABG Base Excess ABG Hemoglobin VBG pH Oxyhemoglobin Sodium Potassium Chloride Carbon Dioxide BUN Creatinine Glucose POC Glucose 140 H 166 H 115 H Hemoglobin A1c Lactic Acid Calcium Phosphorus Magnesium Iron TIBC Direct Bilirubin AST ALT Alkaline Phosphatase Total Creatine Kinase CK-MB (CK-2) C-Reactive Protein Total Protein Albumin Vitamin B12 Urine WBC (Auto) Salicylates Acetaminophen Miscellaneous Test Crossmatch 03/30/19 03/30/19 03/30/19 23:13 Unknown Unknown WBC RBC Hgb Hct MCV MCH MCHC RDW Plt Count Lymph % (Auto) [place] % (Auto) Lymph # Seg Neutrophils % Seg Neuts % (Manual) Lymphocytes % (Manual) Nucleated RBC % Seg Neutrophils # Seg Neutrophils # Man Lymphocytes # (Manual) Monocytes # (Manual) PT INR APTT D-Dimer POC ABG pH ABG pH POC ABG pCO2 POC ABG pO2 ABG pO2 47.8 L ABG HCO3 18.8 L ABG O2 Saturation 83.8 L ABG Base Excess -5.4 L ABG Hemoglobin 6.8 L VBG pH Oxyhemoglobin 81.8 L Sodium 157 H Potassium 3.3 L Chloride 117.9 H Carbon Dioxide 20 L BUN 36 H Creatinine Glucose 150 H POC Glucose 112 H Hemoglobin A1c Lactic Acid Calcium 7.2 L Phosphorus Magnesium Iron TIBC Direct Bilirubin AST ALT Alkaline Phosphatase Total Creatine Kinase CK-MB (CK-2) C-Reactive Protein Total Protein Albumin Vitamin B12 Urine WBC (Auto) Salicylates Acetaminophen Miscellaneous Test Crossmatch 03/30/19 03/30/19 03/31/19 Unknown Unknown 00:03 WBC RBC Hgb Hct MCV MCH MCHC RDW Plt Count Lymph % (Auto) [place] % (Auto) Lymph # Seg Neutrophils % Seg Neuts % (Manual) Lymphocytes % (Manual) Nucleated RBC % Seg Neutrophils # Seg Neutrophils # Man Lymphocytes # (Manual) Monocytes # (Manual) PT INR APTT D-Dimer POC ABG pH ABG pH POC ABG pCO2 POC ABG pO2 ABG pO2 ABG HCO3 ABG O2 Saturation ABG Base Excess ABG Hemoglobin VBG pH Oxyhemoglobin Sodium Potassium Chloride Carbon Dioxide BUN Creatinine Glucose POC Glucose 188 H Hemoglobin A1c Lactic Acid Calcium Phosphorus Magnesium Iron TIBC Direct Bilirubin AST ALT Alkaline Phosphatase Total Creatine Kinase CK-MB (CK-2) C-Reactive Protein Total Protein Albumin Vitamin B12 Urine WBC (Auto) Salicylates 0.8 L Acetaminophen < 5.0 L Miscellaneous Test Crossmatch 03/31/19 03/31/19 03/31/19 01:18 03:07 03:50 WBC RBC Hgb Hct MCV MCH MCHC RDW Plt Count Lymph % (Auto) [place] % (Auto) Lymph # Seg Neutrophils % Seg Neuts % (Manual) Lymphocytes % (Manual) Nucleated RBC % Seg Neutrophils # Seg Neutrophils # Man Lymphocytes # (Manual) Monocytes # (Manual) PT INR APTT D-Dimer POC ABG pH ABG pH 7.525 H POC ABG pCO2 POC ABG pO2 ABG pO2 178.0 H ABG HCO3 19.5 L ABG O2 Saturation 99.2 H ABG Base Excess -3.1 L ABG Hemoglobin 5.8 L VBG pH Oxyhemoglobin Sodium Potassium Chloride Carbon Dioxide BUN Creatinine Glucose POC Glucose 114 H 107 H Hemoglobin A1c Lactic Acid Calcium Phosphorus Magnesium Iron TIBC Direct Bilirubin AST ALT Alkaline Phosphatase Total Creatine Kinase CK-MB (CK-2) C-Reactive Protein Total Protein Albumin Vitamin B12 Urine WBC (Auto) Salicylates Acetaminophen Miscellaneous Test Crossmatch 03/31/19 03/31/19 03/31/19 03:51 03:51 04:05 WBC RBC 1.89 L Hgb 6.1 L Hct 18.2 L* MCV MCH MCHC RDW 17.7 H Plt Count 89 L Lymph % (Auto) [place] % (Auto) Lymph # Seg Neutrophils % Seg Neuts % (Manual) 86.0 H Lymphocytes % (Manual) 10.0 L Nucleated RBC % 1.0 H Seg Neutrophils # Seg Neutrophils # Man Lymphocytes # (Manual) 0.7 L Monocytes # (Manual) PT INR APTT D-Dimer POC ABG pH ABG pH POC ABG pCO2 POC ABG pO2 ABG pO2 ABG HCO3 ABG O2 Saturation ABG Base Excess ABG Hemoglobin VBG pH Oxyhemoglobin Sodium 151 H Potassium 3.2 L Chloride 119.4 H Carbon Dioxide 17 L BUN 35 H Creatinine Glucose 139 H POC Glucose 153 H Hemoglobin A1c Lactic Acid Calcium 7.1 L Phosphorus Magnesium Iron TIBC Direct Bilirubin AST ALT Alkaline Phosphatase Total Creatine Kinase CK-MB (CK-2) C-Reactive Protein Total Protein Albumin Vitamin B12 Urine WBC (Auto) Salicylates Acetaminophen Miscellaneous Test Crossmatch 03/31/19 03/31/19 03/31/19 05:05 05:35 06:23 WBC RBC Hgb Hct MCV MCH MCHC RDW Plt Count Lymph % (Auto) [place] % (Auto) Lymph # Seg Neutrophils % Seg Neuts % (Manual) Lymphocytes % (Manual) Nucleated RBC % Seg Neutrophils # Seg Neutrophils # Man Lymphocytes # (Manual) Monocytes # (Manual) PT INR APTT D-Dimer POC ABG pH ABG pH POC ABG pCO2 POC ABG pO2 ABG pO2 ABG HCO3 ABG O2 Saturation ABG Base Excess ABG Hemoglobin VBG pH Oxyhemoglobin Sodium Potassium Chloride Carbon Dioxide BUN Creatinine Glucose POC Glucose 176 H 133 H Hemoglobin A1c Lactic Acid 3.20 H* Calcium Phosphorus Magnesium Iron TIBC Direct Bilirubin AST ALT Alkaline Phosphatase Total Creatine Kinase CK-MB (CK-2) C-Reactive Protein Total Protein Albumin Vitamin B12 Urine WBC (Auto) Salicylates Acetaminophen Miscellaneous Test Crossmatch 03/31/19 03/31/19 03/31/19 07:50 07:51 08:20 WBC RBC Hgb Hct MCV MCH MCHC RDW Plt Count Lymph % (Auto) [place] % (Auto) Lymph # Seg Neutrophils % Seg Neuts % (Manual) Lymphocytes % (Manual) Nucleated RBC % Seg Neutrophils # Seg Neutrophils # Man Lymphocytes # (Manual) Monocytes # (Manual) PT INR APTT D-Dimer POC ABG pH ABG pH POC ABG pCO2 POC ABG pO2 ABG pO2 ABG HCO3 ABG O2 Saturation ABG Base Excess ABG Hemoglobin VBG pH Oxyhemoglobin Sodium Potassium Chloride Carbon Dioxide BUN Creatinine Glucose POC Glucose 135 H Hemoglobin A1c Lactic Acid 3.30 H* Calcium Phosphorus Magnesium Iron 26 L TIBC 193 L Direct Bilirubin AST ALT Alkaline Phosphatase Total Creatine Kinase CK-MB (CK-2) C-Reactive Protein Total Protein Albumin Vitamin B12 Urine WBC (Auto) Salicylates Acetaminophen Miscellaneous Test Crossmatch 03/31/19 03/31/19 03/31/19 08:20 08:20 09:06 WBC RBC Hgb Hct MCV MCH MCHC RDW Plt Count Lymph % (Auto) [place] % (Auto) Lymph # Seg Neutrophils % Seg Neuts % (Manual) Lymphocytes % (Manual) Nucleated RBC % Seg Neutrophils # Seg Neutrophils # Man Lymphocytes # (Manual) Monocytes # (Manual) PT INR APTT D-Dimer POC ABG pH ABG pH POC ABG pCO2 POC ABG pO2 ABG pO2 ABG HCO3 ABG O2 Saturation ABG Base Excess ABG Hemoglobin VBG pH Oxyhemoglobin Sodium 153 H Potassium 3.0 L Chloride 118.9 H Carbon Dioxide 18 L BUN 37 H Creatinine Glucose 132 H POC Glucose 145 H Hemoglobin A1c Lactic Acid Calcium 7.1 L Phosphorus Magnesium Iron TIBC Direct Bilirubin AST ALT Alkaline Phosphatase Total Creatine Kinase CK-MB (CK-2) C-Reactive Protein Total Protein Albumin Vitamin B12 > 2000 H Urine WBC (Auto) Salicylates Acetaminophen Miscellaneous Test Crossmatch 03/31/19 03/31/19 03/31/19 10:47 11:49 13:04 WBC RBC Hgb Hct MCV MCH MCHC RDW Plt Count Lymph % (Auto) [place] % (Auto) Lymph # Seg Neutrophils % Seg Neuts % (Manual) Lymphocytes % (Manual) Nucleated RBC % Seg Neutrophils # Seg Neutrophils # Man Lymphocytes # (Manual) Monocytes # (Manual) PT INR APTT D-Dimer POC ABG pH ABG pH POC ABG pCO2 POC ABG pO2 ABG pO2 ABG HCO3 ABG O2 Saturation ABG Base Excess ABG Hemoglobin VBG pH Oxyhemoglobin Sodium Potassium Chloride Carbon Dioxide BUN Creatinine Glucose POC Glucose 153 H 174 H 214 H Hemoglobin A1c Lactic Acid Calcium Phosphorus Magnesium Iron TIBC Direct Bilirubin AST ALT Alkaline Phosphatase Total Creatine Kinase CK-MB (CK-2) C-Reactive Protein Total Protein Albumin Vitamin B12 Urine WBC (Auto) Salicylates Acetaminophen Miscellaneous Test Crossmatch 03/31/19 03/31/19 03/31/19 13:42 15:08 16:08 WBC RBC Hgb Hct MCV MCH MCHC RDW Plt Count Lymph % (Auto) [place] % (Auto) Lymph # Seg Neutrophils % Seg Neuts % (Manual) Lymphocytes % (Manual) Nucleated RBC % Seg Neutrophils # Seg Neutrophils # Man Lymphocytes # (Manual) Monocytes # (Manual) PT INR APTT D-Dimer POC ABG pH ABG pH POC ABG pCO2 POC ABG pO2 ABG pO2 ABG HCO3 ABG O2 Saturation ABG Base Excess ABG Hemoglobin VBG pH Oxyhemoglobin Sodium Potassium Chloride Carbon Dioxide BUN Creatinine Glucose POC Glucose 186 H 136 H 150 H Hemoglobin A1c Lactic Acid Calcium Phosphorus Magnesium Iron TIBC Direct Bilirubin AST ALT Alkaline Phosphatase Total Creatine Kinase CK-MB (CK-2) C-Reactive Protein Total Protein Albumin Vitamin B12 Urine WBC (Auto) Salicylates Acetaminophen Miscellaneous Test Crossmatch 03/31/19 03/31/19 03/31/19 17:11 17:30 17:30 WBC RBC Hgb 7.7 L Hct 23.0 L MCV MCH MCHC RDW Plt Count Lymph % (Auto) [place] % (Auto) Lymph # Seg Neutrophils % Seg Neuts % (Manual) Lymphocytes % (Manual) Nucleated RBC % Seg Neutrophils # Seg Neutrophils # Man Lymphocytes # (Manual) Monocytes # (Manual) PT INR APTT D-Dimer POC ABG pH ABG pH POC ABG pCO2 POC ABG pO2 ABG pO2 ABG HCO3 ABG O2 Saturation ABG Base Excess ABG Hemoglobin VBG pH Oxyhemoglobin Sodium 153 H Potassium 3.5 L Chloride 119.3 H Carbon Dioxide 20 L BUN 34 H Creatinine Glucose 162 H POC Glucose 140 H Hemoglobin A1c Lactic Acid Calcium 7.6 L Phosphorus Magnesium Iron TIBC Direct Bilirubin AST ALT Alkaline Phosphatase Total Creatine Kinase CK-MB (CK-2) C-Reactive Protein Total Protein Albumin Vitamin B12 Urine WBC (Auto) Salicylates Acetaminophen Miscellaneous Test Crossmatch 03/31/19 03/31/19 03/31/19 17:59 18:58 20:28 WBC RBC Hgb Hct MCV MCH MCHC RDW Plt Count Lymph % (Auto) [place] % (Auto) Lymph # Seg Neutrophils % Seg Neuts % (Manual) Lymphocytes % (Manual) Nucleated RBC % Seg Neutrophils # Seg Neutrophils # Man Lymphocytes # (Manual) Monocytes # (Manual) PT INR APTT D-Dimer POC ABG pH ABG pH POC ABG pCO2 POC ABG pO2 ABG pO2 ABG HCO3 ABG O2 Saturation ABG Base Excess ABG Hemoglobin VBG pH Oxyhemoglobin Sodium Potassium Chloride Carbon Dioxide BUN Creatinine Glucose POC Glucose 156 H 152 H 138 H Hemoglobin A1c Lactic Acid Calcium Phosphorus Magnesium Iron TIBC Direct Bilirubin AST ALT Alkaline Phosphatase Total Creatine Kinase CK-MB (CK-2) C-Reactive Protein Total Protein Albumin Vitamin B12 Urine WBC (Auto) Salicylates Acetaminophen Miscellaneous Test Crossmatch 03/31/19 03/31/19 03/31/19 21:09 22:15 23:10 WBC RBC Hgb Hct MCV MCH MCHC RDW Plt Count Lymph % (Auto) [place] % (Auto) Lymph # Seg Neutrophils % Seg Neuts % (Manual) Lymphocytes % (Manual) Nucleated RBC % Seg Neutrophils # Seg Neutrophils # Man Lymphocytes # (Manual) Monocytes # (Manual) PT INR APTT D-Dimer POC ABG pH ABG pH POC ABG pCO2 POC ABG pO2 ABG pO2 ABG HCO3 ABG O2 Saturation ABG Base Excess ABG Hemoglobin VBG pH Oxyhemoglobin Sodium Potassium Chloride Carbon Dioxide BUN Creatinine Glucose POC Glucose 136 H 137 H 148 H Hemoglobin A1c Lactic Acid Calcium Phosphorus Magnesium Iron TIBC Direct Bilirubin AST ALT Alkaline Phosphatase Total Creatine Kinase CK-MB (CK-2) C-Reactive Protein Total Protein Albumin Vitamin B12 Urine WBC (Auto) Salicylates Acetaminophen Miscellaneous Test Crossmatch 04/01/19 04/01/19 04/01/19 00:05 01:17 02:11 WBC RBC Hgb Hct MCV MCH MCHC RDW Plt Count Lymph % (Auto) [place] % (Auto) Lymph # Seg Neutrophils % Seg Neuts % (Manual) Lymphocytes % (Manual) Nucleated RBC % Seg Neutrophils # Seg Neutrophils # Man Lymphocytes # (Manual) Monocytes # (Manual) PT INR APTT D-Dimer POC ABG pH ABG pH POC ABG pCO2 POC ABG pO2 ABG pO2 ABG HCO3 ABG O2 Saturation ABG Base Excess ABG Hemoglobin VBG pH Oxyhemoglobin Sodium Potassium Chloride Carbon Dioxide BUN Creatinine Glucose POC Glucose 143 H 151 H 155 H Hemoglobin A1c Lactic Acid Calcium Phosphorus Magnesium Iron TIBC Direct Bilirubin AST ALT Alkaline Phosphatase Total Creatine Kinase CK-MB (CK-2) C-Reactive Protein Total Protein Albumin Vitamin B12 Urine WBC (Auto) Salicylates Acetaminophen Miscellaneous Test Crossmatch 04/01/19 04/01/19 04/01/19 03:12 04:03 04:16 WBC RBC Hgb Hct MCV MCH MCHC RDW Plt Count Lymph % (Auto) [place] % (Auto) Lymph # Seg Neutrophils % Seg Neuts % (Manual) Lymphocytes % (Manual) Nucleated RBC % Seg Neutrophils # Seg Neutrophils # Man Lymphocytes # (Manual) Monocytes # (Manual) PT INR APTT D-Dimer POC ABG pH ABG pH POC ABG pCO2 POC ABG pO2 ABG pO2 ABG HCO3 ABG O2 Saturation ABG Base Excess ABG Hemoglobin VBG pH Oxyhemoglobin Sodium Potassium Chloride Carbon Dioxide BUN Creatinine Glucose POC Glucose 140 H 143 H 142 H Hemoglobin A1c Lactic Acid Calcium Phosphorus Magnesium Iron TIBC Direct Bilirubin AST ALT Alkaline Phosphatase Total Creatine Kinase CK-MB (CK-2) C-Reactive Protein Total Protein Albumin Vitamin B12 Urine WBC (Auto) Salicylates Acetaminophen Miscellaneous Test Crossmatch 04/01/19 04/01/19 04/01/19 05:01 05:01 05:08 WBC RBC 2.05 L Hgb 6.8 L Hct 20.5 L MCV 100 H MCH 33 H MCHC RDW 17.7 H Plt Count 53 L Lymph % (Auto) [place] % (Auto) Lymph # Seg Neutrophils % Seg Neuts % (Manual) 71.0 H Lymphocytes % (Manual) Nucleated RBC % Seg Neutrophils # Seg Neutrophils # Man Lymphocytes # (Manual) Monocytes # (Manual) PT INR APTT D-Dimer POC ABG pH ABG pH POC ABG pCO2 POC ABG pO2 ABG pO2 ABG HCO3 ABG O2 Saturation ABG Base Excess ABG Hemoglobin VBG pH Oxyhemoglobin Sodium Potassium Chloride Carbon Dioxide BUN Creatinine Glucose POC Glucose 119 H Hemoglobin A1c Lactic Acid Calcium Phosphorus Magnesium Iron TIBC Direct Bilirubin 0.3 H AST 4601 H ALT 1542 H Alkaline Phosphatase 185 H Total Creatine Kinase CK-MB (CK-2) C-Reactive Protein Total Protein 3.8 L Albumin 1.6 L Vitamin B12 Urine WBC (Auto) Salicylates Acetaminophen Miscellaneous Test Crossmatch 04/01/19 04/01/19 04/01/19 05:23 06:37 08:15 WBC RBC Hgb Hct MCV MCH MCHC RDW Plt Count Lymph % (Auto) [place] % (Auto) Lymph # Seg Neutrophils % Seg Neuts % (Manual) Lymphocytes % (Manual) Nucleated RBC % Seg Neutrophils # Seg Neutrophils # Man Lymphocytes # (Manual) Monocytes # (Manual) PT INR APTT D-Dimer POC ABG pH ABG pH POC ABG pCO2 POC ABG pO2 ABG pO2 ABG HCO3 ABG O2 Saturation ABG Base Excess ABG Hemoglobin VBG pH Oxyhemoglobin Sodium Potassium Chloride Carbon Dioxide BUN Creatinine Glucose POC Glucose 115 H 124 H 138 H Hemoglobin A1c Lactic Acid Calcium Phosphorus Magnesium Iron TIBC Direct Bilirubin AST ALT Alkaline Phosphatase Total Creatine Kinase CK-MB (CK-2) C-Reactive Protein Total Protein Albumin Vitamin B12 Urine WBC (Auto) Salicylates Acetaminophen Miscellaneous Test Crossmatch 04/01/19 04/01/19 04/01/19 09:50 10:10 10:31 WBC RBC Hgb 6.5 L Hct 19.2 L* MCV MCH MCHC RDW Plt Count Lymph % (Auto) [place] % (Auto) Lymph # Seg Neutrophils % Seg Neuts % (Manual) Lymphocytes % (Manual) Nucleated RBC % Seg Neutrophils # Seg Neutrophils # Man Lymphocytes # (Manual) Monocytes # (Manual) PT INR APTT D-Dimer POC ABG pH ABG pH POC ABG pCO2 POC ABG pO2 ABG pO2 ABG HCO3 ABG O2 Saturation ABG Base Excess ABG Hemoglobin VBG pH Oxyhemoglobin Sodium 149 H Potassium 3.5 L Chloride 119.9 H Carbon Dioxide 21 L BUN 33 H Creatinine 0.5 L Glucose 142 H POC Glucose 185 H Hemoglobin A1c Lactic Acid Calcium 7.3 L Phosphorus Magnesium Iron TIBC Direct Bilirubin AST 3686 H ALT 1440 H Alkaline Phosphatase 185 H Total Creatine Kinase CK-MB (CK-2) C-Reactive Protein Total Protein 3.7 L Albumin 1.8 L Vitamin B12 Urine WBC (Auto) Salicylates Acetaminophen Miscellaneous Test Crossmatch 04/01/19 04/01/19 04/01/19 11:35 13:05 14:35 WBC RBC Hgb Hct MCV MCH MCHC RDW Plt Count Lymph % (Auto) [place] % (Auto) Lymph # Seg Neutrophils % Seg Neuts % (Manual) Lymphocytes % (Manual) Nucleated RBC % Seg Neutrophils # Seg Neutrophils # Man Lymphocytes # (Manual) Monocytes # (Manual) PT INR APTT D-Dimer POC ABG pH ABG pH POC ABG pCO2 POC ABG pO2 ABG pO2 ABG HCO3 ABG O2 Saturation ABG Base Excess ABG Hemoglobin VBG pH Oxyhemoglobin Sodium Potassium Chloride Carbon Dioxide BUN Creatinine Glucose POC Glucose 201 H 169 H 134 H Hemoglobin A1c Lactic Acid Calcium Phosphorus Magnesium Iron TIBC Direct Bilirubin AST ALT Alkaline Phosphatase Total Creatine Kinase CK-MB (CK-2) C-Reactive Protein Total Protein Albumin Vitamin B12 Urine WBC (Auto) Salicylates Acetaminophen Miscellaneous Test Crossmatch 04/01/19 04/01/19 04/01/19 17:13 17:14 18:30 WBC RBC Hgb Hct MCV MCH MCHC RDW Plt Count Lymph % (Auto) [place] % (Auto) Lymph # Seg Neutrophils % Seg Neuts % (Manual) Lymphocytes % (Manual) Nucleated RBC % Seg Neutrophils # Seg Neutrophils # Man Lymphocytes # (Manual) Monocytes # (Manual) PT INR APTT D-Dimer 5203.68 H POC ABG pH ABG pH POC ABG pCO2 POC ABG pO2 ABG pO2 ABG HCO3 ABG O2 Saturation ABG Base Excess ABG Hemoglobin VBG pH Oxyhemoglobin Sodium Potassium Chloride Carbon Dioxide BUN Creatinine Glucose POC Glucose 69 L 128 H Hemoglobin A1c Lactic Acid Calcium Phosphorus Magnesium Iron TIBC Direct Bilirubin AST ALT Alkaline Phosphatase Total Creatine Kinase CK-MB (CK-2) C-Reactive Protein Total Protein Albumin Vitamin B12 Urine WBC (Auto) Salicylates Acetaminophen Miscellaneous Test Crossmatch 04/01/19 04/01/19 04/02/19 22:50 Unknown 03:40 WBC RBC Hgb Hct MCV MCH MCHC RDW Plt Count Lymph % (Auto) [place] % (Auto) Lymph # Seg Neutrophils % Seg Neuts % (Manual) Lymphocytes % (Manual) Nucleated RBC % Seg Neutrophils # Seg Neutrophils # Man Lymphocytes # (Manual) Monocytes # (Manual) PT INR APTT D-Dimer POC ABG pH ABG pH POC ABG pCO2 POC ABG pO2 ABG pO2 78.3 L 142.8 H ABG HCO3 15.5 L ABG O2 Saturation ABG Base Excess -3.5 L -8.2 L ABG Hemoglobin 6.8 L 8.2 L VBG pH Oxyhemoglobin 94.3 L Sodium Potassium Chloride Carbon Dioxide BUN Creatinine Glucose POC Glucose 342 H Hemoglobin A1c Lactic Acid Calcium Phosphorus Magnesium Iron TIBC Direct Bilirubin AST ALT Alkaline Phosphatase Total Creatine Kinase CK-MB (CK-2) C-Reactive Protein Total Protein Albumin Vitamin B12 Urine WBC (Auto) Salicylates Acetaminophen Miscellaneous Test Crossmatch 04/02/19 04/02/19 04/02/19 03:49 06:50 07:48 WBC RBC 2.65 L Hgb 8.6 L Hct 25.1 L MCV MCH MCHC RDW 17.6 H Plt Count 48 L Lymph % (Auto) [place] % (Auto) Lymph # Seg Neutrophils % Seg Neuts % (Manual) Lymphocytes % (Manual) Nucleated RBC % Seg Neutrophils # Seg Neutrophils # Man Lymphocytes # (Manual) Monocytes # (Manual) PT INR APTT D-Dimer POC ABG pH ABG pH POC ABG pCO2 POC ABG pO2 ABG pO2 ABG HCO3 ABG O2 Saturation ABG Base Excess ABG Hemoglobin VBG pH Oxyhemoglobin Sodium Potassium Chloride Carbon Dioxide BUN Creatinine Glucose POC Glucose 247 H 200 H Hemoglobin A1c Lactic Acid Calcium Phosphorus Magnesium Iron TIBC Direct Bilirubin AST ALT Alkaline Phosphatase Total Creatine Kinase CK-MB (CK-2) C-Reactive Protein Total Protein Albumin Vitamin B12 Urine WBC (Auto) Salicylates Acetaminophen Miscellaneous Test Crossmatch 04/02/19 04/02/19 04/02/19 07:48 11:18 14:07 WBC RBC Hgb Hct MCV MCH MCHC RDW Plt Count Lymph % (Auto) [place] % (Auto) Lymph # Seg Neutrophils % Seg Neuts % (Manual) Lymphocytes % (Manual) Nucleated RBC % Seg Neutrophils # Seg Neutrophils # Man Lymphocytes # (Manual) Monocytes # (Manual) PT INR APTT D-Dimer POC ABG pH ABG pH POC ABG pCO2 POC ABG pO2 ABG pO2 ABG HCO3 ABG O2 Saturation ABG Base Excess ABG Hemoglobin VBG pH Oxyhemoglobin Sodium Potassium 3.5 L Chloride 115.7 H Carbon Dioxide 19 L BUN 29 H Creatinine 0.5 L Glucose 159 H POC Glucose 154 H 149 H Hemoglobin A1c Lactic Acid Calcium 7.5 L Phosphorus Magnesium Iron TIBC Direct Bilirubin AST 1418 H ALT 1134 H Alkaline Phosphatase 242 H Total Creatine Kinase CK-MB (CK-2) C-Reactive Protein Total Protein 4.2 L Albumin 2.1 L Vitamin B12 Urine WBC (Auto) Salicylates Acetaminophen Miscellaneous Test Crossmatch 04/02/19 04/02/19 04/02/19 18:09 19:46 23:05 WBC RBC Hgb Hct MCV MCH MCHC RDW Plt Count Lymph % (Auto) [place] % (Auto) Lymph # Seg Neutrophils % Seg Neuts % (Manual) Lymphocytes % (Manual) Nucleated RBC % Seg Neutrophils # Seg Neutrophils # Man Lymphocytes # (Manual) Monocytes # (Manual) PT INR APTT D-Dimer POC ABG pH ABG pH POC ABG pCO2 POC ABG pO2 ABG pO2 ABG HCO3 ABG O2 Saturation ABG Base Excess ABG Hemoglobin VBG pH Oxyhemoglobin Sodium Potassium Chloride Carbon Dioxide BUN Creatinine Glucose POC Glucose 188 H 209 H 247 H Hemoglobin A1c Lactic Acid Calcium Phosphorus Magnesium Iron TIBC Direct Bilirubin AST ALT Alkaline Phosphatase Total Creatine Kinase CK-MB (CK-2) C-Reactive Protein Total Protein Albumin Vitamin B12 Urine WBC (Auto) Salicylates Acetaminophen Miscellaneous Test Crossmatch 04/03/19 04/03/19 04/03/19 02:58 03:40 03:40 WBC RBC 2.87 L Hgb 9.3 L Hct 27.0 L MCV MCH MCHC RDW 17.2 H Plt Count 65 L Lymph % (Auto) [place] % (Auto) 9.8 H Lymph # 1.1 L Seg Neutrophils % Seg Neuts % (Manual) Lymphocytes % (Manual) Nucleated RBC % Seg Neutrophils # Seg Neutrophils # Man Lymphocytes # (Manual) Monocytes # (Manual) PT INR APTT D-Dimer POC ABG pH ABG pH POC ABG pCO2 POC ABG pO2 ABG pO2 ABG HCO3 ABG O2 Saturation ABG Base Excess ABG Hemoglobin VBG pH Oxyhemoglobin Sodium 147 H Potassium 3.5 L Chloride 116.7 H Carbon Dioxide 18 L BUN Creatinine 0.4 L Glucose 150 H POC Glucose 166 H Hemoglobin A1c Lactic Acid Calcium 8.1 L Phosphorus 2.20 L Magnesium Iron TIBC Direct Bilirubin AST 594 H ALT 861 H Alkaline Phosphatase 299 H Total Creatine Kinase CK-MB (CK-2) C-Reactive Protein Total Protein 4.4 L Albumin 2.1 L Vitamin B12 Urine WBC (Auto) Salicylates Acetaminophen Miscellaneous Test Crossmatch 04/03/19 04/03/19 04/03/19 05:35 07:02 08:23 WBC RBC Hgb Hct MCV MCH MCHC RDW Plt Count Lymph % (Auto) [place] % (Auto) Lymph # Seg Neutrophils % Seg Neuts % (Manual) Lymphocytes % (Manual) Nucleated RBC % Seg Neutrophils # Seg Neutrophils # Man Lymphocytes # (Manual) Monocytes # (Manual) PT INR APTT D-Dimer POC ABG pH ABG pH POC ABG pCO2 POC ABG pO2 ABG pO2 97.7 H ABG HCO3 19.3 L ABG O2 Saturation ABG Base Excess -5.0 L ABG Hemoglobin 8.0 L VBG pH Oxyhemoglobin Sodium Potassium Chloride Carbon Dioxide BUN Creatinine Glucose POC Glucose 135 H 132 H Hemoglobin A1c Lactic Acid Calcium Phosphorus Magnesium Iron TIBC Direct Bilirubin AST ALT Alkaline Phosphatase Total Creatine Kinase CK-MB (CK-2) C-Reactive Protein Total Protein Albumin Vitamin B12 Urine WBC (Auto) Salicylates Acetaminophen Miscellaneous Test Crossmatch 04/03/19 04/03/19 04/03/19 11:58 15:11 17:53 WBC RBC Hgb Hct MCV MCH MCHC RDW Plt Count Lymph % (Auto) [place] % (Auto) Lymph # Seg Neutrophils % Seg Neuts % (Manual) Lymphocytes % (Manual) Nucleated RBC % Seg Neutrophils # Seg Neutrophils # Man Lymphocytes # (Manual) Monocytes # (Manual) PT INR APTT D-Dimer POC ABG pH ABG pH POC ABG pCO2 POC ABG pO2 ABG pO2 ABG HCO3 ABG O2 Saturation ABG Base Excess ABG Hemoglobin VBG pH Oxyhemoglobin Sodium Potassium Chloride Carbon Dioxide BUN Creatinine Glucose POC Glucose 179 H 213 H 223 H Hemoglobin A1c Lactic Acid Calcium Phosphorus Magnesium Iron TIBC Direct Bilirubin AST ALT Alkaline Phosphatase Total Creatine Kinase CK-MB (CK-2) C-Reactive Protein Total Protein Albumin Vitamin B12 Urine WBC (Auto) Salicylates Acetaminophen Miscellaneous Test Crossmatch 04/03/19 04/04/19 04/04/19 23:06 02:36 06:41 WBC RBC Hgb Hct MCV MCH MCHC RDW Plt Count Lymph % (Auto) [place] % (Auto) Lymph # Seg Neutrophils % Seg Neuts % (Manual) Lymphocytes % (Manual) Nucleated RBC % Seg Neutrophils # Seg Neutrophils # Man Lymphocytes # (Manual) Monocytes # (Manual) PT INR APTT D-Dimer POC ABG pH ABG pH POC ABG pCO2 POC ABG pO2 ABG pO2 ABG HCO3 ABG O2 Saturation ABG Base Excess ABG Hemoglobin VBG pH Oxyhemoglobin Sodium Potassium Chloride Carbon Dioxide BUN Creatinine Glucose POC Glucose 189 H 157 H 131 H Hemoglobin A1c Lactic Acid Calcium Phosphorus Magnesium Iron TIBC Direct Bilirubin AST ALT Alkaline Phosphatase Total Creatine Kinase CK-MB (CK-2) C-Reactive Protein Total Protein Albumin Vitamin B12 Urine WBC (Auto) Salicylates Acetaminophen Miscellaneous Test Crossmatch 04/04/19 04/04/19 04/04/19 11:42 15:45 18:21 WBC RBC Hgb Hct MCV MCH MCHC RDW Plt Count Lymph % (Auto) [place] % (Auto) Lymph # Seg Neutrophils % Seg Neuts % (Manual) Lymphocytes % (Manual) Nucleated RBC % Seg Neutrophils # Seg Neutrophils # Man Lymphocytes # (Manual) Monocytes # (Manual) PT INR APTT D-Dimer POC ABG pH ABG pH POC ABG pCO2 POC ABG pO2 ABG pO2 ABG HCO3 ABG O2 Saturation ABG Base Excess ABG Hemoglobin VBG pH Oxyhemoglobin Sodium Potassium Chloride Carbon Dioxide BUN Creatinine Glucose POC Glucose 233 H 236 H 255 H Hemoglobin A1c Lactic Acid Calcium Phosphorus Magnesium Iron TIBC Direct Bilirubin AST ALT Alkaline Phosphatase Total Creatine Kinase CK-MB (CK-2) C-Reactive Protein Total Protein Albumin Vitamin B12 Urine WBC (Auto) Salicylates Acetaminophen Miscellaneous Test Crossmatch 04/04/19 04/05/19 04/05/19 21:21 03:06 06:05 WBC RBC 2.68 L Hgb 8.5 L Hct 26.3 L MCV 98 H MCH MCHC RDW 17.4 H Plt Count Lymph % (Auto) [place] % (Auto) Lymph # Seg Neutrophils % Seg Neuts % (Manual) Lymphocytes % (Manual) Nucleated RBC % Seg Neutrophils # Seg Neutrophils # Man Lymphocytes # (Manual) Monocytes # (Manual) PT INR APTT D-Dimer POC ABG pH ABG pH POC ABG pCO2 POC ABG pO2 ABG pO2 ABG HCO3 ABG O2 Saturation ABG Base Excess ABG Hemoglobin VBG pH Oxyhemoglobin Sodium Potassium Chloride Carbon Dioxide BUN Creatinine Glucose POC Glucose 132 H 161 H Hemoglobin A1c Lactic Acid Calcium Phosphorus Magnesium Iron TIBC Direct Bilirubin AST ALT Alkaline Phosphatase Total Creatine Kinase CK-MB (CK-2) C-Reactive Protein Total Protein Albumin Vitamin B12 Urine WBC (Auto) Salicylates Acetaminophen Miscellaneous Test Crossmatch 04/05/19 04/05/19 04/05/19 06:05 06:49 10:23 WBC RBC Hgb Hct MCV MCH MCHC RDW Plt Count Lymph % (Auto) [place] % (Auto) Lymph # Seg Neutrophils % Seg Neuts % (Manual) Lymphocytes % (Manual) Nucleated RBC % Seg Neutrophils # Seg Neutrophils # Man Lymphocytes # (Manual) Monocytes # (Manual) PT INR APTT D-Dimer POC ABG pH ABG pH POC ABG pCO2 POC ABG pO2 ABG pO2 ABG HCO3 ABG O2 Saturation ABG Base Excess ABG Hemoglobin VBG pH Oxyhemoglobin Sodium Potassium Chloride 112.5 H Carbon Dioxide BUN Creatinine 0.2 L Glucose 237 H POC Glucose 283 H 296 H Hemoglobin A1c Lactic Acid Calcium 7.9 L Phosphorus Magnesium Iron TIBC Direct Bilirubin AST ALT Alkaline Phosphatase Total Creatine Kinase CK-MB (CK-2) C-Reactive Protein Total Protein Albumin Vitamin B12 Urine WBC (Auto) Salicylates Acetaminophen Miscellaneous Test Crossmatch 04/05/19 04/05/19 04/05/19 14:46 18:19 20:35 WBC RBC Hgb Hct MCV MCH MCHC RDW Plt Count Lymph % (Auto) [place] % (Auto) Lymph # Seg Neutrophils % Seg Neuts % (Manual) Lymphocytes % (Manual) Nucleated RBC % Seg Neutrophils # Seg Neutrophils # Man Lymphocytes # (Manual) Monocytes # (Manual) PT INR APTT D-Dimer POC ABG pH ABG pH POC ABG pCO2 POC ABG pO2 ABG pO2 ABG HCO3 ABG O2 Saturation ABG Base Excess ABG Hemoglobin VBG pH Oxyhemoglobin Sodium Potassium Chloride Carbon Dioxide BUN Creatinine Glucose POC Glucose 225 H 259 H 236 H Hemoglobin A1c Lactic Acid Calcium Phosphorus Magnesium Iron TIBC Direct Bilirubin AST ALT Alkaline Phosphatase Total Creatine Kinase CK-MB (CK-2) C-Reactive Protein Total Protein Albumin Vitamin B12 Urine WBC (Auto) Salicylates Acetaminophen Miscellaneous Test Crossmatch 04/05/19 04/06/19 04/06/19 23:11 00:06 03:14 WBC RBC Hgb Hct MCV MCH MCHC RDW Plt Count Lymph % (Auto) [place] % (Auto) Lymph # Seg Neutrophils % Seg Neuts % (Manual) Lymphocytes % (Manual) Nucleated RBC % Seg Neutrophils # Seg Neutrophils # Man Lymphocytes # (Manual) Monocytes # (Manual) PT INR APTT D-Dimer 4526.86 H POC ABG pH ABG pH POC ABG pCO2 POC ABG pO2 ABG pO2 ABG HCO3 ABG O2 Saturation ABG Base Excess ABG Hemoglobin VBG pH Oxyhemoglobin Sodium Potassium Chloride Carbon Dioxide BUN Creatinine Glucose POC Glucose 205 H 228 H Hemoglobin A1c Lactic Acid Calcium Phosphorus Magnesium Iron TIBC Direct Bilirubin AST ALT Alkaline Phosphatase Total Creatine Kinase CK-MB (CK-2) C-Reactive Protein Total Protein Albumin Vitamin B12 Urine WBC (Auto) Salicylates Acetaminophen Miscellaneous Test Crossmatch 04/06/19 04/06/19 04/06/19 05:20 05:20 07:57 WBC 15.1 H RBC 2.90 L Hgb 9.1 L Hct 28.0 L MCV MCH MCHC RDW 17.3 H Plt Count Lymph % (Auto) [place] % (Auto) Lymph # Seg Neutrophils % Seg Neuts % (Manual) Lymphocytes % (Manual) Nucleated RBC % Seg Neutrophils # Seg Neutrophils # Man Lymphocytes # (Manual) Monocytes # (Manual) PT INR APTT D-Dimer POC ABG pH ABG pH POC ABG pCO2 POC ABG pO2 ABG pO2 ABG HCO3 ABG O2 Saturation ABG Base Excess ABG Hemoglobin VBG pH Oxyhemoglobin Sodium Potassium Chloride Carbon Dioxide BUN Creatinine 0.2 L Glucose 161 H POC Glucose 191 H Hemoglobin A1c Lactic Acid Calcium 8.0 L Phosphorus Magnesium Iron TIBC Direct Bilirubin AST ALT Alkaline Phosphatase Total Creatine Kinase CK-MB (CK-2) C-Reactive Protein Total Protein Albumin Vitamin B12 Urine WBC (Auto) Salicylates Acetaminophen Miscellaneous Test Crossmatch 04/06/19 04/06/19 04/06/19 12:09 18:24 22:07 WBC RBC Hgb Hct MCV MCH MCHC RDW Plt Count Lymph % (Auto) [place] % (Auto) Lymph # Seg Neutrophils % Seg Neuts % (Manual) Lymphocytes % (Manual) Nucleated RBC % Seg Neutrophils # Seg Neutrophils # Man Lymphocytes # (Manual) Monocytes # (Manual) PT INR APTT D-Dimer POC ABG pH ABG pH POC ABG pCO2 POC ABG pO2 ABG pO2 ABG HCO3 ABG O2 Saturation ABG Base Excess ABG Hemoglobin VBG pH Oxyhemoglobin Sodium Potassium Chloride Carbon Dioxide BUN Creatinine Glucose POC Glucose 143 H 161 H 140 H Hemoglobin A1c Lactic Acid Calcium Phosphorus Magnesium Iron TIBC Direct Bilirubin AST ALT Alkaline Phosphatase Total Creatine Kinase CK-MB (CK-2) C-Reactive Protein Total Protein Albumin Vitamin B12 Urine WBC (Auto) Salicylates Acetaminophen Miscellaneous Test Crossmatch 04/07/19 04/07/19 04/07/19 03:00 04:30 04:30 WBC 13.0 H RBC 2.65 L Hgb 8.3 L Hct 25.5 L MCV MCH MCHC RDW 17.0 H Plt Count Lymph % (Auto) [place] % (Auto) Lymph # Seg Neutrophils % Seg Neuts % (Manual) Lymphocytes % (Manual) Nucleated RBC % Seg Neutrophils # Seg Neutrophils # Man Lymphocytes # (Manual) Monocytes # (Manual) PT INR APTT D-Dimer POC ABG pH ABG pH POC ABG pCO2 POC ABG pO2 ABG pO2 ABG HCO3 ABG O2 Saturation ABG Base Excess ABG Hemoglobin VBG pH Oxyhemoglobin Sodium Potassium Chloride Carbon Dioxide BUN Creatinine 0.2 L Glucose 208 H POC Glucose 224 H Hemoglobin A1c Lactic Acid Calcium 7.7 L Phosphorus Magnesium Iron TIBC Direct Bilirubin AST ALT Alkaline Phosphatase Total Creatine Kinase CK-MB (CK-2) C-Reactive Protein Total Protein Albumin Vitamin B12 Urine WBC (Auto) Salicylates Acetaminophen Miscellaneous Test Crossmatch 04/07/19 04/07/19 04/07/19 05:47 08:27 10:33 WBC RBC Hgb Hct MCV MCH MCHC RDW Plt Count Lymph % (Auto) [place] % (Auto) Lymph # Seg Neutrophils % Seg Neuts % (Manual) Lymphocytes % (Manual) Nucleated RBC % Seg Neutrophils # Seg Neutrophils # Man Lymphocytes # (Manual) Monocytes # (Manual) PT INR APTT D-Dimer POC ABG pH ABG pH POC ABG pCO2 POC ABG pO2 ABG pO2 ABG HCO3 ABG O2 Saturation ABG Base Excess ABG Hemoglobin VBG pH Oxyhemoglobin Sodium Potassium Chloride Carbon Dioxide BUN Creatinine Glucose POC Glucose 225 H 176 H 207 H Hemoglobin A1c Lactic Acid Calcium Phosphorus Magnesium Iron TIBC Direct Bilirubin AST ALT Alkaline Phosphatase Total Creatine Kinase CK-MB (CK-2) C-Reactive Protein Total Protein Albumin Vitamin B12 Urine WBC (Auto) Salicylates Acetaminophen Miscellaneous Test Crossmatch 04/07/19 04/07/19 04/07/19 14:13 18:32 22:42 WBC RBC Hgb Hct MCV MCH MCHC RDW Plt Count Lymph % (Auto) [place] % (Auto) Lymph # Seg Neutrophils % Seg Neuts % (Manual) Lymphocytes % (Manual) Nucleated RBC % Seg Neutrophils # Seg Neutrophils # Man Lymphocytes # (Manual) Monocytes # (Manual) PT INR APTT D-Dimer POC ABG pH ABG pH POC ABG pCO2 POC ABG pO2 ABG pO2 ABG HCO3 ABG O2 Saturation ABG Base Excess ABG Hemoglobin VBG pH Oxyhemoglobin Sodium Potassium Chloride Carbon Dioxide BUN Creatinine Glucose POC Glucose 219 H 227 H 238 H Hemoglobin A1c Lactic Acid Calcium Phosphorus Magnesium Iron TIBC Direct Bilirubin AST ALT Alkaline Phosphatase Total Creatine Kinase CK-MB (CK-2) C-Reactive Protein Total Protein Albumin Vitamin B12 Urine WBC (Auto) Salicylates Acetaminophen Miscellaneous Test Crossmatch 09/04/08/19 04/08/19 02:31 05:37 14:10 WBC RBC Hgb Hct MCV MCH MCHC RDW Plt Count Lymph % (Auto) [place] % (Auto) Lymph # Seg Neutrophils % Seg Neuts % (Manual) Lymphocytes % (Manual) Nucleated RBC % Seg Neutrophils # Seg Neutrophils # Man Lymphocytes # (Manual) Monocytes # (Manual) PT INR APTT D-Dimer POC ABG pH ABG pH POC ABG pCO2 POC ABG pO2 ABG pO2 ABG HCO3 ABG O2 Saturation ABG Base Excess ABG Hemoglobin VBG pH Oxyhemoglobin Sodium Potassium Chloride Carbon Dioxide BUN Creatinine Glucose POC Glucose 194 H 194 H 139 H Hemoglobin A1c Lactic Acid Calcium Phosphorus Magnesium Iron TIBC Direct Bilirubin AST ALT Alkaline Phosphatase Total Creatine Kinase CK-MB (CK-2) C-Reactive Protein Total Protein Albumin Vitamin B12 Urine WBC (Auto) Salicylates Acetaminophen Miscellaneous Test Crossmatch 04/08/19 04/08/19 04/09/19 17:43 23:20 03:28 WBC RBC Hgb Hct MCV MCH MCHC RDW Plt Count Lymph % (Auto) [place] % (Auto) Lymph # Seg Neutrophils % Seg Neuts % (Manual) Lymphocytes % (Manual) Nucleated RBC % Seg Neutrophils # Seg Neutrophils # Man Lymphocytes # (Manual) Monocytes # (Manual) PT INR APTT D-Dimer POC ABG pH ABG pH POC ABG pCO2 POC ABG pO2 ABG pO2 ABG HCO3 ABG O2 Saturation ABG Base Excess ABG Hemoglobin VBG pH Oxyhemoglobin Sodium Potassium Chloride Carbon Dioxide BUN Creatinine Glucose POC Glucose 261 H 277 H 301 H Hemoglobin A1c Lactic Acid Calcium Phosphorus Magnesium Iron TIBC Direct Bilirubin AST ALT Alkaline Phosphatase Total Creatine Kinase CK-MB (CK-2) C-Reactive Protein Total Protein Albumin Vitamin B12 Urine WBC (Auto) Salicylates Acetaminophen Miscellaneous Test Crossmatch 04/09/19 04/09/19 04/09/19 05:35 05:35 05:35 WBC RBC 2.78 L Hgb 9.0 L Hct 26.7 L MCV MCH MCHC RDW 17.0 H Plt Count Lymph % (Auto) [place] % (Auto) Lymph # Seg Neutrophils % Seg Neuts % (Manual) Lymphocytes % (Manual) Nucleated RBC % Seg Neutrophils # Seg Neutrophils # Man Lymphocytes # (Manual) Monocytes # (Manual) PT INR APTT D-Dimer POC ABG pH ABG pH POC ABG pCO2 POC ABG pO2 ABG pO2 ABG HCO3 ABG O2 Saturation ABG Base Excess ABG Hemoglobin VBG pH Oxyhemoglobin Sodium Potassium Chloride Carbon Dioxide 31 H BUN Creatinine 0.2 L Glucose 218 H POC Glucose 240 H Hemoglobin A1c Lactic Acid Calcium Phosphorus Magnesium Iron TIBC Direct Bilirubin AST ALT Alkaline Phosphatase Total Creatine Kinase CK-MB (CK-2) C-Reactive Protein Total Protein Albumin Vitamin B12 Urine WBC (Auto) Salicylates Acetaminophen Miscellaneous Test Crossmatch 04/09/19 04/09/19 04/09/19 09:01 12:23 17:33 WBC RBC Hgb Hct MCV MCH MCHC RDW Plt Count Lymph % (Auto) [place] % (Auto) Lymph # Seg Neutrophils % Seg Neuts % (Manual) Lymphocytes % (Manual) Nucleated RBC % Seg Neutrophils # Seg Neutrophils # Man Lymphocytes # (Manual) Monocytes # (Manual) PT INR APTT D-Dimer POC ABG pH ABG pH POC ABG pCO2 POC ABG pO2 ABG pO2 ABG HCO3 ABG O2 Saturation ABG Base Excess ABG Hemoglobin VBG pH Oxyhemoglobin Sodium Potassium Chloride Carbon Dioxide BUN Creatinine Glucose POC Glucose 160 H 162 H 149 H Hemoglobin A1c Lactic Acid Calcium Phosphorus Magnesium Iron TIBC Direct Bilirubin AST ALT Alkaline Phosphatase Total Creatine Kinase CK-MB (CK-2) C-Reactive Protein Total Protein Albumin Vitamin B12 Urine WBC (Auto) Salicylates Acetaminophen Miscellaneous Test Crossmatch 04/09/19 04/09/19 04/10/19 21:26 22:28 03:16 WBC RBC Hgb Hct MCV MCH MCHC RDW Plt Count Lymph % (Auto) [place] % (Auto) Lymph # Seg Neutrophils % Seg Neuts % (Manual) Lymphocytes % (Manual) Nucleated RBC % Seg Neutrophils # Seg Neutrophils # Man Lymphocytes # (Manual) Monocytes # (Manual) PT INR APTT D-Dimer POC ABG pH ABG pH POC ABG pCO2 POC ABG pO2 ABG pO2 ABG HCO3 ABG O2 Saturation ABG Base Excess ABG Hemoglobin VBG pH Oxyhemoglobin Sodium Potassium Chloride Carbon Dioxide BUN Creatinine Glucose POC Glucose 196 H 224 H 163 H Hemoglobin A1c Lactic Acid Calcium Phosphorus Magnesium Iron TIBC Direct Bilirubin AST ALT Alkaline Phosphatase Total Creatine Kinase CK-MB (CK-2) C-Reactive Protein Total Protein Albumin Vitamin B12 Urine WBC (Auto) Salicylates Acetaminophen Miscellaneous Test Crossmatch 04/10/19 04/10/19 04/10/19 04:15 04:15 05:30 WBC RBC 2.88 L Hgb 9.2 L Hct 27.9 L MCV MCH MCHC RDW 17.0 H Plt Count 454 H Lymph % (Auto) [place] % (Auto) Lymph # Seg Neutrophils % Seg Neuts % (Manual) Lymphocytes % (Manual) Nucleated RBC % Seg Neutrophils # Seg Neutrophils # Man Lymphocytes # (Manual) Monocytes # (Manual) PT INR APTT D-Dimer POC ABG pH ABG pH POC ABG pCO2 POC ABG pO2 ABG pO2 ABG HCO3 ABG O2 Saturation ABG Base Excess ABG Hemoglobin VBG pH Oxyhemoglobin Sodium Potassium Chloride Carbon Dioxide 32 H BUN Creatinine 0.2 L Glucose 126 H POC Glucose 135 H Hemoglobin A1c Lactic Acid Calcium Phosphorus Magnesium Iron TIBC Direct Bilirubin AST ALT Alkaline Phosphatase Total Creatine Kinase CK-MB (CK-2) C-Reactive Protein Total Protein Albumin Vitamin B12 Urine WBC (Auto) Salicylates Acetaminophen Miscellaneous Test Crossmatch 04/10/19 04/10/19 04/10/19 12:14 15:29 23:38 WBC RBC Hgb Hct MCV MCH MCHC RDW Plt Count Lymph % (Auto) [place] % (Auto) Lymph # Seg Neutrophils % Seg Neuts % (Manual) Lymphocytes % (Manual) Nucleated RBC % Seg Neutrophils # Seg Neutrophils # Man Lymphocytes # (Manual) Monocytes # (Manual) PT INR APTT D-Dimer POC ABG pH ABG pH POC ABG pCO2 POC ABG pO2 ABG pO2 ABG HCO3 ABG O2 Saturation ABG Base Excess ABG Hemoglobin VBG pH Oxyhemoglobin Sodium Potassium Chloride Carbon Dioxide BUN Creatinine Glucose POC Glucose 109 H 149 H 268 H Hemoglobin A1c Lactic Acid Calcium Phosphorus Magnesium Iron TIBC Direct Bilirubin AST ALT Alkaline Phosphatase Total Creatine Kinase CK-MB (CK-2) C-Reactive Protein Total Protein Albumin Vitamin B12 Urine WBC (Auto) Salicylates Acetaminophen Miscellaneous Test Crossmatch 04/11/19 04/11/19 04/11/19 05:27 12:08 18:08 WBC RBC Hgb Hct MCV MCH MCHC RDW Plt Count Lymph % (Auto) [place] % (Auto) Lymph # Seg Neutrophils % Seg Neuts % (Manual) Lymphocytes % (Manual) Nucleated RBC % Seg Neutrophils # Seg Neutrophils # Man Lymphocytes # (Manual) Monocytes # (Manual) PT INR APTT D-Dimer POC ABG pH ABG pH POC ABG pCO2 POC ABG pO2 ABG pO2 ABG HCO3 ABG O2 Saturation ABG Base Excess ABG Hemoglobin VBG pH Oxyhemoglobin Sodium Potassium Chloride Carbon Dioxide BUN Creatinine Glucose POC Glucose 109 H 185 H 190 H Hemoglobin A1c Lactic Acid Calcium Phosphorus Magnesium Iron TIBC Direct Bilirubin AST ALT Alkaline Phosphatase Total Creatine Kinase CK-MB (CK-2) C-Reactive Protein Total Protein Albumin Vitamin B12 Urine WBC (Auto) Salicylates Acetaminophen Miscellaneous Test Crossmatch 04/11/19 04/12/19 04/12/19 23:23 06:00 11:42 WBC RBC Hgb Hct MCV MCH MCHC RDW Plt Count Lymph % (Auto) [place] % (Auto) Lymph # Seg Neutrophils % Seg Neuts % (Manual) Lymphocytes % (Manual) Nucleated RBC % Seg Neutrophils # Seg Neutrophils # Man Lymphocytes # (Manual) Monocytes # (Manual) PT INR APTT D-Dimer POC ABG pH ABG pH POC ABG pCO2 POC ABG pO2 ABG pO2 ABG HCO3 ABG O2 Saturation ABG Base Excess ABG Hemoglobin VBG pH Oxyhemoglobin Sodium Potassium Chloride Carbon Dioxide BUN Creatinine Glucose POC Glucose 127 H 201 H 161 H Hemoglobin A1c Lactic Acid Calcium Phosphorus Magnesium Iron TIBC Direct Bilirubin AST ALT Alkaline Phosphatase Total Creatine Kinase CK-MB (CK-2) C-Reactive Protein Total Protein Albumin Vitamin B12 Urine WBC (Auto) Salicylates Acetaminophen Miscellaneous Test Crossmatch 04/12/19 04/12/19 04/12/19 17:56 20:07 21:59 WBC RBC Hgb Hct MCV MCH MCHC RDW Plt Count Lymph % (Auto) [place] % (Auto) Lymph # Seg Neutrophils % Seg Neuts % (Manual) Lymphocytes % (Manual) Nucleated RBC % Seg Neutrophils # Seg Neutrophils # Man Lymphocytes # (Manual) Monocytes # (Manual) PT INR APTT D-Dimer POC ABG pH ABG pH POC ABG pCO2 POC ABG pO2 ABG pO2 ABG HCO3 ABG O2 Saturation ABG Base Excess ABG Hemoglobin VBG pH Oxyhemoglobin Sodium Potassium Chloride Carbon Dioxide BUN Creatinine Glucose POC Glucose 145 H 158 H 203 H Hemoglobin A1c Lactic Acid Calcium Phosphorus Magnesium Iron TIBC Direct Bilirubin AST ALT Alkaline Phosphatase Total Creatine Kinase CK-MB (CK-2) C-Reactive Protein Total Protein Albumin Vitamin B12 Urine WBC (Auto) Salicylates Acetaminophen Miscellaneous Test Crossmatch 04/12/19 04/13/19 04/13/19 23:37 08:50 08:50 WBC 15.7 H RBC 3.12 L Hgb Hct 30.2 L MCV MCH 33 H MCHC RDW 18.0 H Plt Count 678 H Lymph % (Auto) [place] % (Auto) Lymph # Seg Neutrophils % Seg Neuts % (Manual) Lymphocytes % (Manual) Nucleated RBC % Seg Neutrophils # Seg Neutrophils # Man Lymphocytes # (Manual) Monocytes # (Manual) PT INR APTT D-Dimer POC ABG pH ABG pH POC ABG pCO2 POC ABG pO2 ABG pO2 ABG HCO3 ABG O2 Saturation ABG Base Excess ABG Hemoglobin VBG pH Oxyhemoglobin Sodium Potassium Chloride Carbon Dioxide BUN Creatinine < 0.2 L Glucose 46 L POC Glucose 238 H Hemoglobin A1c Lactic Acid Calcium Phosphorus Magnesium Iron TIBC Direct Bilirubin AST ALT Alkaline Phosphatase Total Creatine Kinase CK-MB (CK-2) C-Reactive Protein Total Protein Albumin Vitamin B12 Urine WBC (Auto) Salicylates Acetaminophen Miscellaneous Test Crossmatch 04/13/19 04/13/19 04/13/19 11:56 17:27 23:57 WBC RBC Hgb Hct MCV MCH MCHC RDW Plt Count Lymph % (Auto) [place] % (Auto) Lymph # Seg Neutrophils % Seg Neuts % (Manual) Lymphocytes % (Manual) Nucleated RBC % Seg Neutrophils # Seg Neutrophils # Man Lymphocytes # (Manual) Monocytes # (Manual) PT INR APTT D-Dimer POC ABG pH ABG pH POC ABG pCO2 POC ABG pO2 ABG pO2 ABG HCO3 ABG O2 Saturation ABG Base Excess ABG Hemoglobin VBG pH Oxyhemoglobin Sodium Potassium Chloride Carbon Dioxide BUN Creatinine Glucose POC Glucose 40 L 66 L 65 L Hemoglobin A1c Lactic Acid Calcium Phosphorus Magnesium Iron TIBC Direct Bilirubin AST ALT Alkaline Phosphatase Total Creatine Kinase CK-MB (CK-2) C-Reactive Protein Total Protein Albumin Vitamin B12 Urine WBC (Auto) Salicylates Acetaminophen Miscellaneous Test Crossmatch 04/14/19 04/14/19 04/14/19 05:28 08:20 08:20 WBC 17.8 H RBC 3.26 L Hgb Hct MCV 98 H MCH MCHC RDW 18.3 H Plt Count 622 H Lymph % (Auto) [place] % (Auto) Lymph # Seg Neutrophils % Seg Neuts % (Manual) Lymphocytes % (Manual) Nucleated RBC % Seg Neutrophils # Seg Neutrophils # Man Lymphocytes # (Manual) Monocytes # (Manual) PT INR APTT D-Dimer POC ABG pH ABG pH POC ABG pCO2 POC ABG pO2 ABG pO2 ABG HCO3 ABG O2 Saturation ABG Base Excess ABG Hemoglobin VBG pH Oxyhemoglobin Sodium Potassium Chloride Carbon Dioxide BUN 6 L Creatinine < 0.2 L Glucose 154 H POC Glucose 149 H Hemoglobin A1c Lactic Acid Calcium Phosphorus Magnesium Iron TIBC Direct Bilirubin AST ALT Alkaline Phosphatase Total Creatine Kinase CK-MB (CK-2) C-Reactive Protein Total Protein Albumin Vitamin B12 Urine WBC (Auto) Salicylates Acetaminophen Miscellaneous Test Crossmatch 04/14/19 04/14/19 04/14/19 12:16 17:54 23:35 WBC RBC Hgb Hct MCV MCH MCHC RDW Plt Count Lymph % (Auto) [place] % (Auto) Lymph # Seg Neutrophils % Seg Neuts % (Manual) Lymphocytes % (Manual) Nucleated RBC % Seg Neutrophils # Seg Neutrophils # Man Lymphocytes # (Manual) Monocytes # (Manual) PT INR APTT D-Dimer POC ABG pH ABG pH POC ABG pCO2 POC ABG pO2 ABG pO2 ABG HCO3 ABG O2 Saturation ABG Base Excess ABG Hemoglobin VBG pH Oxyhemoglobin Sodium Potassium Chloride Carbon Dioxide BUN Creatinine Glucose POC Glucose 176 H 224 H 173 H Hemoglobin A1c Lactic Acid Calcium Phosphorus Magnesium Iron TIBC Direct Bilirubin AST ALT Alkaline Phosphatase Total Creatine Kinase CK-MB (CK-2) C-Reactive Protein Total Protein Albumin Vitamin B12 Urine WBC (Auto) Salicylates Acetaminophen Miscellaneous Test Crossmatch 04/15/19 04/15/19 04/15/19 05:44 12:44 18:06 WBC RBC Hgb Hct MCV MCH MCHC RDW Plt Count Lymph % (Auto) [place] % (Auto) Lymph # Seg Neutrophils % Seg Neuts % (Manual) Lymphocytes % (Manual) Nucleated RBC % Seg Neutrophils # Seg Neutrophils # Man Lymphocytes # (Manual) Monocytes # (Manual) PT INR APTT D-Dimer POC ABG pH 7.461 H ABG pH POC ABG pCO2 45.5 H POC ABG pO2 ABG pO2 ABG HCO3 ABG O2 Saturation ABG Base Excess ABG Hemoglobin VBG pH Oxyhemoglobin Sodium Potassium Chloride Carbon Dioxide BUN Creatinine Glucose POC Glucose 255 H 365 H Hemoglobin A1c Lactic Acid Calcium Phosphorus Magnesium Iron TIBC Direct Bilirubin AST ALT Alkaline Phosphatase Total Creatine Kinase CK-MB (CK-2) C-Reactive Protein Total Protein Albumin Vitamin B12 Urine WBC (Auto) Salicylates Acetaminophen Miscellaneous Test Crossmatch 04/15/19 04/15/19 04/16/19 18:06 23:34 00:40 WBC RBC Hgb Hct MCV MCH MCHC RDW Plt Count Lymph % (Auto) [place] % (Auto) Lymph # Seg Neutrophils % Seg Neuts % (Manual) Lymphocytes % (Manual) Nucleated RBC % Seg Neutrophils # Seg Neutrophils # Man Lymphocytes # (Manual) Monocytes # (Manual) PT INR APTT D-Dimer POC ABG pH ABG pH POC ABG pCO2 POC ABG pO2 ABG pO2 ABG HCO3 ABG O2 Saturation ABG Base Excess ABG Hemoglobin VBG pH Oxyhemoglobin Sodium Potassium Chloride Carbon Dioxide BUN Creatinine Glucose POC Glucose 157 H 56 L 107 H Hemoglobin A1c Lactic Acid Calcium Phosphorus Magnesium Iron TIBC Direct Bilirubin AST ALT Alkaline Phosphatase Total Creatine Kinase CK-MB (CK-2) C-Reactive Protein Total Protein Albumin Vitamin B12 Urine WBC (Auto) Salicylates Acetaminophen Miscellaneous Test Crossmatch 04/16/19 04/16/19 04/16/19 09:06 09:06 11:21 WBC 12.9 H RBC 2.95 L Hgb 9.7 L Hct 28.9 L MCV 98 H MCH 33 H MCHC RDW 17.7 H Plt Count 581 H Lymph % (Auto) [place] % (Auto) Lymph # Seg Neutrophils % Seg Neuts % (Manual) Lymphocytes % (Manual) Nucleated RBC % Seg Neutrophils # Seg Neutrophils # Man Lymphocytes # (Manual) Monocytes # (Manual) PT INR APTT D-Dimer POC ABG pH ABG pH POC ABG pCO2 POC ABG pO2 ABG pO2 ABG HCO3 ABG O2 Saturation ABG Base Excess ABG Hemoglobin VBG pH Oxyhemoglobin Sodium Potassium Chloride Carbon Dioxide 31 H BUN Creatinine 0.2 L Glucose 155 H POC Glucose 184 H Hemoglobin A1c Lactic Acid Calcium Phosphorus Magnesium Iron TIBC Direct Bilirubin AST ALT Alkaline Phosphatase Total Creatine Kinase CK-MB (CK-2) C-Reactive Protein Total Protein Albumin Vitamin B12 Urine WBC (Auto) Salicylates Acetaminophen Miscellaneous Test Crossmatch 04/16/19 04/16/19 04/16/19 17:28 20:17 23:09 WBC RBC Hgb Hct MCV MCH MCHC RDW Plt Count Lymph % (Auto) [place] % (Auto) Lymph # Seg Neutrophils % Seg Neuts % (Manual) Lymphocytes % (Manual) Nucleated RBC % Seg Neutrophils # Seg Neutrophils # Man Lymphocytes # (Manual) Monocytes # (Manual) PT INR APTT D-Dimer POC ABG pH 7.479 H ABG pH POC ABG pCO2 POC ABG pO2 71 L ABG pO2 ABG HCO3 ABG O2 Saturation ABG Base Excess ABG Hemoglobin VBG pH Oxyhemoglobin Sodium Potassium Chloride Carbon Dioxide BUN Creatinine Glucose POC Glucose 173 H 178 H Hemoglobin A1c Lactic Acid Calcium Phosphorus Magnesium Iron TIBC Direct Bilirubin AST ALT Alkaline Phosphatase Total Creatine Kinase CK-MB (CK-2) C-Reactive Protein Total Protein Albumin Vitamin B12 Urine WBC (Auto) Salicylates Acetaminophen Miscellaneous Test Crossmatch 04/17/19 04/17/19 04/17/19 05:02 11:39 12:48 WBC RBC Hgb Hct MCV MCH MCHC RDW Plt Count Lymph % (Auto) [place] % (Auto) Lymph # Seg Neutrophils % Seg Neuts % (Manual) Lymphocytes % (Manual) Nucleated RBC % Seg Neutrophils # Seg Neutrophils # Man Lymphocytes # (Manual) Monocytes # (Manual) PT INR APTT D-Dimer POC ABG pH 7.557 H ABG pH POC ABG pCO2 32.8 L POC ABG pO2 149 H ABG pO2 ABG HCO3 ABG O2 Saturation ABG Base Excess ABG Hemoglobin VBG pH Oxyhemoglobin Sodium Potassium Chloride Carbon Dioxide BUN Creatinine Glucose POC Glucose 252 H 124 H Hemoglobin A1c Lactic Acid Calcium Phosphorus Magnesium Iron TIBC Direct Bilirubin AST ALT Alkaline Phosphatase Total Creatine Kinase CK-MB (CK-2) C-Reactive Protein Total Protein Albumin Vitamin B12 Urine WBC (Auto) Salicylates Acetaminophen Miscellaneous Test Crossmatch 04/17/19 04/18/19 04/18/19 23:31 05:32 11:34 WBC RBC Hgb Hct MCV MCH MCHC RDW Plt Count Lymph % (Auto) [place] % (Auto) Lymph # Seg Neutrophils % Seg Neuts % (Manual) Lymphocytes % (Manual) Nucleated RBC % Seg Neutrophils # Seg Neutrophils # Man Lymphocytes # (Manual) Monocytes # (Manual) PT INR APTT D-Dimer POC ABG pH ABG pH POC ABG pCO2 POC ABG pO2 ABG pO2 ABG HCO3 ABG O2 Saturation ABG Base Excess ABG Hemoglobin VBG pH Oxyhemoglobin Sodium Potassium Chloride Carbon Dioxide BUN Creatinine Glucose POC Glucose 149 H 334 H 344 H Hemoglobin A1c Lactic Acid Calcium Phosphorus Magnesium Iron TIBC Direct Bilirubin AST ALT Alkaline Phosphatase Total Creatine Kinase CK-MB (CK-2) C-Reactive Protein Total Protein Albumin Vitamin B12 Urine WBC (Auto) Salicylates Acetaminophen Miscellaneous Test Crossmatch 04/18/19 04/18/19 04/18/19 17:43 18:14 23:35 WBC RBC Hgb Hct MCV MCH MCHC RDW Plt Count Lymph % (Auto) [place] % (Auto) Lymph # Seg Neutrophils % Seg Neuts % (Manual) Lymphocytes % (Manual) Nucleated RBC % Seg Neutrophils # Seg Neutrophils # Man Lymphocytes # (Manual) Monocytes # (Manual) PT INR APTT D-Dimer POC ABG pH ABG pH POC ABG pCO2 49.2 H POC ABG pO2 ABG pO2 ABG HCO3 ABG O2 Saturation ABG Base Excess ABG Hemoglobin VBG pH Oxyhemoglobin Sodium Potassium Chloride Carbon Dioxide BUN Creatinine Glucose POC Glucose 289 H 312 H Hemoglobin A1c Lactic Acid Calcium Phosphorus Magnesium Iron TIBC Direct Bilirubin AST ALT Alkaline Phosphatase Total Creatine Kinase CK-MB (CK-2) C-Reactive Protein Total Protein Albumin Vitamin B12 Urine WBC (Auto) Salicylates Acetaminophen Miscellaneous Test Crossmatch 04/19/19 04/19/19 04/19/19 04:35 05:55 12:26 WBC RBC Hgb Hct MCV MCH MCHC RDW Plt Count Lymph % (Auto) [place] % (Auto) Lymph # Seg Neutrophils % Seg Neuts % (Manual) Lymphocytes % (Manual) Nucleated RBC % Seg Neutrophils # Seg Neutrophils # Man Lymphocytes # (Manual) Monocytes # (Manual) PT INR APTT D-Dimer POC ABG pH 7.565 H ABG pH POC ABG pCO2 POC ABG pO2 ABG pO2 ABG HCO3 ABG O2 Saturation ABG Base Excess ABG Hemoglobin VBG pH Oxyhemoglobin Sodium Potassium Chloride Carbon Dioxide BUN Creatinine Glucose POC Glucose 172 H 271 H Hemoglobin A1c Lactic Acid Calcium Phosphorus Magnesium Iron TIBC Direct Bilirubin AST ALT Alkaline Phosphatase Total Creatine Kinase CK-MB (CK-2) C-Reactive Protein Total Protein Albumin Vitamin B12 Urine WBC (Auto) Salicylates Acetaminophen Miscellaneous Test Crossmatch 04/19/19 04/19/19 04/19/19 17:54 21:10 23:35 WBC RBC Hgb Hct MCV MCH MCHC RDW Plt Count Lymph % (Auto) [place] % (Auto) Lymph # Seg Neutrophils % Seg Neuts % (Manual) Lymphocytes % (Manual) Nucleated RBC % Seg Neutrophils # Seg Neutrophils # Man Lymphocytes # (Manual) Monocytes # (Manual) PT INR APTT D-Dimer POC ABG pH ABG pH POC ABG pCO2 POC ABG pO2 ABG pO2 ABG HCO3 ABG O2 Saturation ABG Base Excess ABG Hemoglobin VBG pH Oxyhemoglobin Sodium Potassium Chloride Carbon Dioxide BUN Creatinine Glucose POC Glucose 229 H 189 H 131 H Hemoglobin A1c Lactic Acid Calcium Phosphorus Magnesium Iron TIBC Direct Bilirubin AST ALT Alkaline Phosphatase Total Creatine Kinase CK-MB (CK-2) C-Reactive Protein Total Protein Albumin Vitamin B12 Urine WBC (Auto) Salicylates Acetaminophen Miscellaneous Test Crossmatch 04/20/19 04/20/19 04/20/19 05:42 11:58 17:32 WBC RBC Hgb Hct MCV MCH MCHC RDW Plt Count Lymph % (Auto) [place] % (Auto) Lymph # Seg Neutrophils % Seg Neuts % (Manual) Lymphocytes % (Manual) Nucleated RBC % Seg Neutrophils # Seg Neutrophils # Man Lymphocytes # (Manual) Monocytes # (Manual) PT INR APTT D-Dimer POC ABG pH ABG pH POC ABG pCO2 POC ABG pO2 ABG pO2 ABG HCO3 ABG O2 Saturation ABG Base Excess ABG Hemoglobin VBG pH Oxyhemoglobin Sodium Potassium Chloride Carbon Dioxide BUN Creatinine Glucose POC Glucose 289 H 265 H 232 H Hemoglobin A1c Lactic Acid Calcium Phosphorus Magnesium Iron TIBC Direct Bilirubin AST ALT Alkaline Phosphatase Total Creatine Kinase CK-MB (CK-2) C-Reactive Protein Total Protein Albumin Vitamin B12 Urine WBC (Auto) Salicylates Acetaminophen Miscellaneous Test Crossmatch 04/21/19 04/21/19 04/21/19 00:02 05:13 12:41 WBC RBC Hgb Hct MCV MCH MCHC RDW Plt Count Lymph % (Auto) [place] % (Auto) Lymph # Seg Neutrophils % Seg Neuts % (Manual) Lymphocytes % (Manual) Nucleated RBC % Seg Neutrophils # Seg Neutrophils # Man Lymphocytes # (Manual) Monocytes # (Manual) PT INR APTT D-Dimer POC ABG pH ABG pH POC ABG pCO2 POC ABG pO2 ABG pO2 ABG HCO3 ABG O2 Saturation ABG Base Excess ABG Hemoglobin VBG pH Oxyhemoglobin Sodium Potassium Chloride Carbon Dioxide BUN Creatinine Glucose POC Glucose 126 H 233 H 205 H Hemoglobin A1c Lactic Acid Calcium Phosphorus Magnesium Iron TIBC Direct Bilirubin AST ALT Alkaline Phosphatase Total Creatine Kinase CK-MB (CK-2) C-Reactive Protein Total Protein Albumin Vitamin B12 Urine WBC (Auto) Salicylates Acetaminophen Miscellaneous Test Crossmatch 04/21/19 04/22/19 04/22/19 23:42 03:57 03:57 WBC 11.5 H RBC 3.44 L Hgb Hct MCV MCH MCHC RDW 16.3 H Plt Count 510 H Lymph % (Auto) [place] % (Auto) Lymph # Seg Neutrophils % Seg Neuts % (Manual) Lymphocytes % (Manual) Nucleated RBC % Seg Neutrophils # Seg Neutrophils # Man Lymphocytes # (Manual) Monocytes # (Manual) PT INR APTT D-Dimer POC ABG pH ABG pH POC ABG pCO2 POC ABG pO2 ABG pO2 ABG HCO3 ABG O2 Saturation ABG Base Excess ABG Hemoglobin VBG pH Oxyhemoglobin Sodium Potassium Chloride 96.3 L Carbon Dioxide BUN Creatinine 0.2 L Glucose 333 H POC Glucose 149 H Hemoglobin A1c Lactic Acid Calcium Phosphorus Magnesium Iron TIBC Direct Bilirubin AST 60 H ALT Alkaline Phosphatase 204 H Total Creatine Kinase CK-MB (CK-2) C-Reactive Protein Total Protein Albumin 3.1 L Vitamin B12 Urine WBC (Auto) Salicylates Acetaminophen Miscellaneous Test Crossmatch 04/22/19 04/22/19 04/22/19 05:18 12:03 18:17 WBC RBC Hgb Hct MCV MCH MCHC RDW Plt Count Lymph % (Auto) [place] % (Auto) Lymph # Seg Neutrophils % Seg Neuts % (Manual) Lymphocytes % (Manual) Nucleated RBC % Seg Neutrophils # Seg Neutrophils # Man Lymphocytes # (Manual) Monocytes # (Manual) PT INR APTT D-Dimer POC ABG pH ABG pH POC ABG pCO2 POC ABG pO2 ABG pO2 ABG HCO3 ABG O2 Saturation ABG Base Excess ABG Hemoglobin VBG pH Oxyhemoglobin Sodium Potassium Chloride Carbon Dioxide BUN Creatinine Glucose POC Glucose 345 H 308 H 169 H Hemoglobin A1c Lactic Acid Calcium Phosphorus Magnesium Iron TIBC Direct Bilirubin AST ALT Alkaline Phosphatase Total Creatine Kinase CK-MB (CK-2) C-Reactive Protein Total Protein Albumin Vitamin B12 Urine WBC (Auto) Salicylates Acetaminophen Miscellaneous Test Crossmatch 04/23/19 04/23/19 04/23/19 00:14 05:43 11:15 WBC RBC Hgb Hct MCV MCH MCHC RDW Plt Count Lymph % (Auto) [place] % (Auto) Lymph # Seg Neutrophils % Seg Neuts % (Manual) Lymphocytes % (Manual) Nucleated RBC % Seg Neutrophils # Seg Neutrophils # Man Lymphocytes # (Manual) Monocytes # (Manual) PT INR APTT D-Dimer POC ABG pH ABG pH POC ABG pCO2 POC ABG pO2 ABG pO2 ABG HCO3 ABG O2 Saturation ABG Base Excess ABG Hemoglobin VBG pH Oxyhemoglobin Sodium Potassium Chloride Carbon Dioxide BUN Creatinine Glucose POC Glucose 192 H 260 H 186 H Hemoglobin A1c Lactic Acid Calcium Phosphorus Magnesium Iron TIBC Direct Bilirubin AST ALT Alkaline Phosphatase Total Creatine Kinase CK-MB (CK-2) C-Reactive Protein Total Protein Albumin Vitamin B12 Urine WBC (Auto) Salicylates Acetaminophen Miscellaneous Test Crossmatch 04/23/19 04/23/19 04/24/19 15:44 21:30 00:09 WBC RBC Hgb Hct MCV MCH MCHC RDW Plt Count Lymph % (Auto) [place] % (Auto) Lymph # Seg Neutrophils % Seg Neuts % (Manual) Lymphocytes % (Manual) Nucleated RBC % Seg Neutrophils # Seg Neutrophils # Man Lymphocytes # (Manual) Monocytes # (Manual) PT INR APTT D-Dimer POC ABG pH ABG pH POC ABG pCO2 POC ABG pO2 ABG pO2 ABG HCO3 ABG O2 Saturation ABG Base Excess ABG Hemoglobin VBG pH Oxyhemoglobin Sodium Potassium Chloride Carbon Dioxide BUN Creatinine Glucose POC Glucose 164 H 407 H 280 H Hemoglobin A1c Lactic Acid Calcium Phosphorus Magnesium Iron TIBC Direct Bilirubin AST ALT Alkaline Phosphatase Total Creatine Kinase CK-MB (CK-2) C-Reactive Protein Total Protein Albumin Vitamin B12 Urine WBC (Auto) Salicylates Acetaminophen Miscellaneous Test Crossmatch 04/24/19 04/24/19 04/24/19 06:01 06:39 14:51 WBC RBC Hgb Hct MCV MCH MCHC RDW Plt Count Lymph % (Auto) [place] % (Auto) Lymph # Seg Neutrophils % Seg Neuts % (Manual) Lymphocytes % (Manual) Nucleated RBC % Seg Neutrophils # Seg Neutrophils # Man Lymphocytes # (Manual) Monocytes # (Manual) PT INR APTT D-Dimer POC ABG pH ABG pH POC ABG pCO2 POC ABG pO2 ABG pO2 ABG HCO3 ABG O2 Saturation ABG Base Excess ABG Hemoglobin VBG pH Oxyhemoglobin Sodium Potassium Chloride Carbon Dioxide BUN Creatinine Glucose POC Glucose 65 L 125 H 207 H Hemoglobin A1c Lactic Acid Calcium Phosphorus Magnesium Iron TIBC Direct Bilirubin AST ALT Alkaline Phosphatase Total Creatine Kinase CK-MB (CK-2) C-Reactive Protein Total Protein Albumin Vitamin B12 Urine WBC (Auto) Salicylates Acetaminophen Miscellaneous Test Crossmatch 04/24/19 04/25/19 04/25/19 18:03 01:46 05:56 WBC RBC Hgb Hct MCV MCH MCHC RDW Plt Count Lymph % (Auto) [place] % (Auto) Lymph # Seg Neutrophils % Seg Neuts % (Manual) Lymphocytes % (Manual) Nucleated RBC % Seg Neutrophils # Seg Neutrophils # Man Lymphocytes # (Manual) Monocytes # (Manual) PT INR APTT D-Dimer POC ABG pH ABG pH POC ABG pCO2 POC ABG pO2 ABG pO2 ABG HCO3 ABG O2 Saturation ABG Base Excess ABG Hemoglobin VBG pH Oxyhemoglobin Sodium Potassium Chloride Carbon Dioxide BUN Creatinine Glucose POC Glucose 140 H 125 H 208 H Hemoglobin A1c Lactic Acid Calcium Phosphorus Magnesium Iron TIBC Direct Bilirubin AST ALT Alkaline Phosphatase Total Creatine Kinase CK-MB (CK-2) C-Reactive Protein Total Protein Albumin Vitamin B12 Urine WBC (Auto) Salicylates Acetaminophen Miscellaneous Test Crossmatch 04/25/19 04/25/19 04/25/19 08:12 13:06 18:04 WBC RBC Hgb Hct MCV MCH MCHC RDW Plt Count Lymph % (Auto) [place] % (Auto) Lymph # Seg Neutrophils % Seg Neuts % (Manual) Lymphocytes % (Manual) Nucleated RBC % Seg Neutrophils # Seg Neutrophils # Man Lymphocytes # (Manual) Monocytes # (Manual) PT INR APTT D-Dimer POC ABG pH ABG pH POC ABG pCO2 POC ABG pO2 ABG pO2 ABG HCO3 ABG O2 Saturation ABG Base Excess ABG Hemoglobin VBG pH Oxyhemoglobin Sodium Potassium Chloride Carbon Dioxide BUN Creatinine Glucose POC Glucose 127 H 147 H 340 H Hemoglobin A1c Lactic Acid Calcium Phosphorus Magnesium Iron TIBC Direct Bilirubin AST ALT Alkaline Phosphatase Total Creatine Kinase CK-MB (CK-2) C-Reactive Protein Total Protein Albumin Vitamin B12 Urine WBC (Auto) Salicylates Acetaminophen Miscellaneous Test Crossmatch 04/26/19 04/26/19 04/26/19 00:16 05:15 11:26 WBC RBC Hgb Hct MCV MCH MCHC RDW Plt Count Lymph % (Auto) [place] % (Auto) Lymph # Seg Neutrophils % Seg Neuts % (Manual) Lymphocytes % (Manual) Nucleated RBC % Seg Neutrophils # Seg Neutrophils # Man Lymphocytes # (Manual) Monocytes # (Manual) PT INR APTT D-Dimer POC ABG pH ABG pH POC ABG pCO2 POC ABG pO2 ABG pO2 ABG HCO3 ABG O2 Saturation ABG Base Excess ABG Hemoglobin VBG pH Oxyhemoglobin Sodium Potassium Chloride Carbon Dioxide BUN Creatinine Glucose POC Glucose 137 H 136 H 365 H Hemoglobin A1c Lactic Acid Calcium Phosphorus Magnesium Iron TIBC Direct Bilirubin AST ALT Alkaline Phosphatase Total Creatine Kinase CK-MB (CK-2) C-Reactive Protein Total Protein Albumin Vitamin B12 Urine WBC (Auto) Salicylates Acetaminophen Miscellaneous Test Crossmatch 04/26/19 04/26/19 04/27/19 18:03 21:30 06:14 WBC RBC Hgb Hct MCV MCH MCHC RDW Plt Count Lymph % (Auto) [place] % (Auto) Lymph # Seg Neutrophils % Seg Neuts % (Manual) Lymphocytes % (Manual) Nucleated RBC % Seg Neutrophils # Seg Neutrophils # Man Lymphocytes # (Manual) Monocytes # (Manual) PT INR APTT D-Dimer POC ABG pH ABG pH POC ABG pCO2 POC ABG pO2 ABG pO2 ABG HCO3 ABG O2 Saturation ABG Base Excess ABG Hemoglobin VBG pH Oxyhemoglobin Sodium Potassium Chloride Carbon Dioxide BUN Creatinine Glucose POC Glucose 124 H 231 H 199 H Hemoglobin A1c Lactic Acid Calcium Phosphorus Magnesium Iron TIBC Direct Bilirubin AST ALT Alkaline Phosphatase Total Creatine Kinase CK-MB (CK-2) C-Reactive Protein Total Protein Albumin Vitamin B12 Urine WBC (Auto) Salicylates Acetaminophen Miscellaneous Test Crossmatch 04/27/19 04/27/19 04/28/19 16:39 22:22 05:55 WBC RBC Hgb Hct MCV MCH MCHC RDW Plt Count Lymph % (Auto) [place] % (Auto) Lymph # Seg Neutrophils % Seg Neuts % (Manual) Lymphocytes % (Manual) Nucleated RBC % Seg Neutrophils # Seg Neutrophils # Man Lymphocytes # (Manual) Monocytes # (Manual) PT INR APTT D-Dimer POC ABG pH ABG pH POC ABG pCO2 POC ABG pO2 ABG pO2 ABG HCO3 ABG O2 Saturation ABG Base Excess ABG Hemoglobin VBG pH Oxyhemoglobin Sodium Potassium Chloride Carbon Dioxide BUN Creatinine Glucose POC Glucose 171 H 183 H 207 H Hemoglobin A1c Lactic Acid Calcium Phosphorus Magnesium Iron TIBC Direct Bilirubin AST ALT Alkaline Phosphatase Total Creatine Kinase CK-MB (CK-2) C-Reactive Protein Total Protein Albumin Vitamin B12 Urine WBC (Auto) Salicylates Acetaminophen Miscellaneous Test Crossmatch 04/28/19 04/28/19 04/29/19 12:30 17:07 00:03 WBC RBC Hgb Hct MCV MCH MCHC RDW Plt Count Lymph % (Auto) [place] % (Auto) Lymph # Seg Neutrophils % Seg Neuts % (Manual) Lymphocytes % (Manual) Nucleated RBC % Seg Neutrophils # Seg Neutrophils # Man Lymphocytes # (Manual) Monocytes # (Manual) PT INR APTT D-Dimer POC ABG pH ABG pH POC ABG pCO2 POC ABG pO2 ABG pO2 ABG HCO3 ABG O2 Saturation ABG Base Excess ABG Hemoglobin VBG pH Oxyhemoglobin Sodium Potassium Chloride Carbon Dioxide BUN Creatinine Glucose POC Glucose 199 H 233 H 217 H Hemoglobin A1c Lactic Acid Calcium Phosphorus Magnesium Iron TIBC Direct Bilirubin AST ALT Alkaline Phosphatase Total Creatine Kinase CK-MB (CK-2) C-Reactive Protein Total Protein Albumin Vitamin B12 Urine WBC (Auto) Salicylates Acetaminophen Miscellaneous Test Crossmatch 04/29/19 04/29/19 04/29/19 05:51 09:43 09:43 WBC RBC 3.36 L Hgb Hct MCV MCH MCHC RDW 16.3 H Plt Count Lymph % (Auto) 11.1 L [place] % (Auto) Lymph # Seg Neutrophils % 81.4 H Seg Neuts % (Manual) Lymphocytes % (Manual) Nucleated RBC % Seg Neutrophils # 9.0 H Seg Neutrophils # Man Lymphocytes # (Manual) Monocytes # (Manual) PT INR APTT D-Dimer POC ABG pH ABG pH POC ABG pCO2 POC ABG pO2 ABG pO2 ABG HCO3 ABG O2 Saturation ABG Base Excess ABG Hemoglobin VBG pH Oxyhemoglobin Sodium Potassium Chloride Carbon Dioxide BUN 21 H Creatinine 0.3 L Glucose 316 H POC Glucose 149 H Hemoglobin A1c Lactic Acid Calcium Phosphorus Magnesium Iron TIBC Direct Bilirubin AST ALT Alkaline Phosphatase Total Creatine Kinase CK-MB (CK-2) C-Reactive Protein Total Protein Albumin Vitamin B12 Urine WBC (Auto) Salicylates Acetaminophen Miscellaneous Test Crossmatch 04/29/19 04/29/19 04/29/19 12:28 18:02 23:49 WBC RBC Hgb Hct MCV MCH MCHC RDW Plt Count Lymph % (Auto) [place] % (Auto) Lymph # Seg Neutrophils % Seg Neuts % (Manual) Lymphocytes % (Manual) Nucleated RBC % Seg Neutrophils # Seg Neutrophils # Man Lymphocytes # (Manual) Monocytes # (Manual) PT INR APTT D-Dimer POC ABG pH ABG pH POC ABG pCO2 POC ABG pO2 ABG pO2 ABG HCO3 ABG O2 Saturation ABG Base Excess ABG Hemoglobin VBG pH Oxyhemoglobin Sodium Potassium Chloride Carbon Dioxide BUN Creatinine Glucose POC Glucose 368 H 185 H 137 H Hemoglobin A1c Lactic Acid Calcium Phosphorus Magnesium Iron TIBC Direct Bilirubin AST ALT Alkaline Phosphatase Total Creatine Kinase CK-MB (CK-2) C-Reactive Protein Total Protein Albumin Vitamin B12 Urine WBC (Auto) Salicylates Acetaminophen Miscellaneous Test Crossmatch 04/30/19 04/30/19 04/30/19 05:56 09:08 09:08 WBC RBC 3.48 L Hgb Hct MCV MCH MCHC RDW 15.9 H Plt Count Lymph % (Auto) [place] % (Auto) Lymph # Seg Neutrophils % 73.7 H Seg Neuts % (Manual) Lymphocytes % (Manual) Nucleated RBC % Seg Neutrophils # Seg Neutrophils # Man Lymphocytes # (Manual) Monocytes # (Manual) PT INR APTT D-Dimer POC ABG pH ABG pH POC ABG pCO2 POC ABG pO2 ABG pO2 ABG HCO3 ABG O2 Saturation ABG Base Excess ABG Hemoglobin VBG pH Oxyhemoglobin Sodium Potassium Chloride Carbon Dioxide BUN 25 H Creatinine 0.3 L Glucose 290 H POC Glucose 318 H Hemoglobin A1c Lactic Acid Calcium Phosphorus Magnesium Iron TIBC Direct Bilirubin AST ALT Alkaline Phosphatase Total Creatine Kinase CK-MB (CK-2) C-Reactive Protein Total Protein Albumin Vitamin B12 Urine WBC (Auto) Salicylates Acetaminophen Miscellaneous Test Crossmatch 04/30/19 04/30/19 04/30/19 11:32 17:19 21:36 WBC RBC Hgb Hct MCV MCH MCHC RDW Plt Count Lymph % (Auto) [place] % (Auto) Lymph # Seg Neutrophils % Seg Neuts % (Manual) Lymphocytes % (Manual) Nucleated RBC % Seg Neutrophils # Seg Neutrophils # Man Lymphocytes # (Manual) Monocytes # (Manual) PT INR APTT D-Dimer POC ABG pH ABG pH POC ABG pCO2 POC ABG pO2 ABG pO2 ABG HCO3 ABG O2 Saturation ABG Base Excess ABG Hemoglobin VBG pH Oxyhemoglobin Sodium Potassium Chloride Carbon Dioxide BUN Creatinine Glucose POC Glucose 225 H 110 H 371 H Hemoglobin A1c Lactic Acid Calcium Phosphorus Magnesium Iron TIBC Direct Bilirubin AST ALT Alkaline Phosphatase Total Creatine Kinase CK-MB (CK-2) C-Reactive Protein Total Protein Albumin Vitamin B12 Urine WBC (Auto) Salicylates Acetaminophen Miscellaneous Test Crossmatch 04/30/19 05/01/19 05/01/19 Unknown 05:29 11:44 WBC RBC Hgb Hct MCV MCH MCHC RDW Plt Count Lymph % (Auto) [place] % (Auto) Lymph # Seg Neutrophils % Seg Neuts % (Manual) Lymphocytes % (Manual) Nucleated RBC % Seg Neutrophils # Seg Neutrophils # Man Lymphocytes # (Manual) Monocytes # (Manual) PT INR APTT D-Dimer POC ABG pH ABG pH POC ABG pCO2 POC ABG pO2 ABG pO2 ABG HCO3 ABG O2 Saturation ABG Base Excess ABG Hemoglobin VBG pH Oxyhemoglobin Sodium Potassium Chloride Carbon Dioxide BUN Creatinine Glucose POC Glucose 386 H 227 H Hemoglobin A1c Lactic Acid Calcium Phosphorus Magnesium Iron TIBC Direct Bilirubin AST ALT Alkaline Phosphatase Total Creatine Kinase CK-MB (CK-2) C-Reactive Protein Total Protein Albumin Vitamin B12 Urine WBC (Auto) 17.0 H Salicylates Acetaminophen Miscellaneous Test Crossmatch 05/02/19 05/02/19 05/03/19 05:51 11:21 00:25 WBC RBC Hgb Hct MCV MCH MCHC RDW Plt Count Lymph % (Auto) [place] % (Auto) Lymph # Seg Neutrophils % Seg Neuts % (Manual) Lymphocytes % (Manual) Nucleated RBC % Seg Neutrophils # Seg Neutrophils # Man Lymphocytes # (Manual) Monocytes # (Manual) PT INR APTT D-Dimer POC ABG pH ABG pH POC ABG pCO2 POC ABG pO2 ABG pO2 ABG HCO3 ABG O2 Saturation ABG Base Excess ABG Hemoglobin VBG pH Oxyhemoglobin Sodium Potassium Chloride Carbon Dioxide BUN Creatinine Glucose POC Glucose 280 H 191 H 262 H Hemoglobin A1c Lactic Acid Calcium Phosphorus Magnesium Iron TIBC Direct Bilirubin AST ALT Alkaline Phosphatase Total Creatine Kinase CK-MB (CK-2) C-Reactive Protein Total Protein Albumin Vitamin B12 Urine WBC (Auto) Salicylates Acetaminophen Miscellaneous Test Crossmatch 05/03/19 05/03/19 05/03/19 04:57 04:57 06:20 WBC RBC 3.45 L Hgb Hct MCV MCH MCHC RDW 15.5 H Plt Count Lymph % (Auto) [place] % (Auto) 7.6 H Lymph # Seg Neutrophils % Seg Neuts % (Manual) Lymphocytes % (Manual) Nucleated RBC % Seg Neutrophils # Seg Neutrophils # Man Lymphocytes # (Manual) Monocytes # (Manual) PT INR APTT D-Dimer POC ABG pH ABG pH POC ABG pCO2 POC ABG pO2 ABG pO2 ABG HCO3 ABG O2 Saturation ABG Base Excess ABG Hemoglobin VBG pH Oxyhemoglobin Sodium Potassium Chloride Carbon Dioxide BUN 23 H Creatinine 0.2 L Glucose 101 H POC Glucose 131 H Hemoglobin A1c Lactic Acid Calcium Phosphorus Magnesium Iron TIBC Direct Bilirubin AST ALT Alkaline Phosphatase Total Creatine Kinase CK-MB (CK-2) C-Reactive Protein Total Protein Albumin Vitamin B12 Urine WBC (Auto) Salicylates Acetaminophen Miscellaneous Test Crossmatch 05/03/19 05/04/19 05/04/19 23:58 12:05 16:56 WBC RBC Hgb Hct MCV MCH MCHC RDW Plt Count Lymph % (Auto) [place] % (Auto) Lymph # Seg Neutrophils % Seg Neuts % (Manual) Lymphocytes % (Manual) Nucleated RBC % Seg Neutrophils # Seg Neutrophils # Man Lymphocytes # (Manual) Monocytes # (Manual) PT INR APTT D-Dimer POC ABG pH ABG pH POC ABG pCO2 POC ABG pO2 ABG pO2 ABG HCO3 ABG O2 Saturation ABG Base Excess ABG Hemoglobin VBG pH Oxyhemoglobin Sodium Potassium Chloride Carbon Dioxide BUN Creatinine Glucose POC Glucose 160 H 128 H 116 H Hemoglobin A1c Lactic Acid Calcium Phosphorus Magnesium Iron TIBC Direct Bilirubin AST ALT Alkaline Phosphatase Total Creatine Kinase CK-MB (CK-2) C-Reactive Protein Total Protein Albumin Vitamin B12 Urine WBC (Auto) Salicylates Acetaminophen Miscellaneous Test Crossmatch 05/04/19 05/05/19 05/05/19 23:31 03:24 11:43 WBC RBC Hgb Hct MCV MCH MCHC RDW Plt Count Lymph % (Auto) [place] % (Auto) Lymph # Seg Neutrophils % Seg Neuts % (Manual) Lymphocytes % (Manual) Nucleated RBC % Seg Neutrophils # Seg Neutrophils # Man Lymphocytes # (Manual) Monocytes # (Manual) PT INR APTT D-Dimer POC ABG pH ABG pH POC ABG pCO2 POC ABG pO2 ABG pO2 ABG HCO3 ABG O2 Saturation ABG Base Excess ABG Hemoglobin VBG pH Oxyhemoglobin Sodium Potassium Chloride Carbon Dioxide BUN Creatinine Glucose POC Glucose 204 H 194 H 202 H Hemoglobin A1c Lactic Acid Calcium Phosphorus Magnesium Iron TIBC Direct Bilirubin AST ALT Alkaline Phosphatase Total Creatine Kinase CK-MB (CK-2) C-Reactive Protein Total Protein Albumin Vitamin B12 Urine WBC (Auto) Salicylates Acetaminophen Miscellaneous Test Crossmatch 05/05/19 05/06/19 05/06/19 21:07 05:16 17:08 WBC RBC Hgb Hct MCV MCH MCHC RDW Plt Count Lymph % (Auto) [place] % (Auto) Lymph # Seg Neutrophils % Seg Neuts % (Manual) Lymphocytes % (Manual) Nucleated RBC % Seg Neutrophils # Seg Neutrophils # Man Lymphocytes # (Manual) Monocytes # (Manual) PT INR APTT D-Dimer POC ABG pH ABG pH POC ABG pCO2 POC ABG pO2 ABG pO2 ABG HCO3 ABG O2 Saturation ABG Base Excess ABG Hemoglobin VBG pH Oxyhemoglobin Sodium Potassium Chloride Carbon Dioxide BUN Creatinine Glucose POC Glucose 128 H 239 H 64 L Hemoglobin A1c Lactic Acid Calcium Phosphorus Magnesium Iron TIBC Direct Bilirubin AST ALT Alkaline Phosphatase Total Creatine Kinase CK-MB (CK-2) C-Reactive Protein Total Protein Albumin Vitamin B12 Urine WBC (Auto) Salicylates Acetaminophen Miscellaneous Test Crossmatch 05/07/19 05/07/19 05/07/19 05:12 08:00 12:13 WBC RBC Hgb Hct MCV MCH MCHC RDW Plt Count Lymph % (Auto) [place] % (Auto) Lymph # Seg Neutrophils % Seg Neuts % (Manual) Lymphocytes % (Manual) Nucleated RBC % Seg Neutrophils # Seg Neutrophils # Man Lymphocytes # (Manual) Monocytes # (Manual) PT INR APTT D-Dimer POC ABG pH ABG pH POC ABG pCO2 POC ABG pO2 ABG pO2 ABG HCO3 ABG O2 Saturation ABG Base Excess ABG Hemoglobin VBG pH Oxyhemoglobin Sodium Potassium Chloride Carbon Dioxide BUN Creatinine Glucose POC Glucose 315 H 193 H 129 H Hemoglobin A1c Lactic Acid Calcium Phosphorus Magnesium Iron TIBC Direct Bilirubin AST ALT Alkaline Phosphatase Total Creatine Kinase CK-MB (CK-2) C-Reactive Protein Total Protein Albumin Vitamin B12 Urine WBC (Auto) Salicylates Acetaminophen Miscellaneous Test Crossmatch 05/07/19 05/07/19 05/08/19 17:00 22:58 00:38 WBC RBC Hgb Hct MCV MCH MCHC RDW Plt Count Lymph % (Auto) [place] % (Auto) Lymph # Seg Neutrophils % Seg Neuts % (Manual) Lymphocytes % (Manual) Nucleated RBC % Seg Neutrophils # Seg Neutrophils # Man Lymphocytes # (Manual) Monocytes # (Manual) PT INR APTT D-Dimer POC ABG pH ABG pH POC ABG pCO2 POC ABG pO2 ABG pO2 ABG HCO3 ABG O2 Saturation ABG Base Excess ABG Hemoglobin VBG pH Oxyhemoglobin Sodium Potassium Chloride Carbon Dioxide BUN Creatinine Glucose POC Glucose 331 H 341 H 369 H Hemoglobin A1c Lactic Acid Calcium Phosphorus Magnesium Iron TIBC Direct Bilirubin AST ALT Alkaline Phosphatase Total Creatine Kinase CK-MB (CK-2) C-Reactive Protein Total Protein Albumin Vitamin B12 Urine WBC (Auto) Salicylates Acetaminophen Miscellaneous Test Crossmatch 05/08/19 05/08/19 05/08/19 06:06 07:58 12:38 WBC RBC Hgb Hct MCV MCH MCHC RDW Plt Count Lymph % (Auto) [place] % (Auto) Lymph # Seg Neutrophils % Seg Neuts % (Manual) Lymphocytes % (Manual) Nucleated RBC % Seg Neutrophils # Seg Neutrophils # Man Lymphocytes # (Manual) Monocytes # (Manual) PT INR APTT D-Dimer POC ABG pH ABG pH POC ABG pCO2 POC ABG pO2 ABG pO2 ABG HCO3 ABG O2 Saturation ABG Base Excess ABG Hemoglobin VBG pH Oxyhemoglobin Sodium Potassium Chloride Carbon Dioxide BUN Creatinine Glucose POC Glucose 191 H 165 H 296 H Hemoglobin A1c Lactic Acid Calcium Phosphorus Magnesium Iron TIBC Direct Bilirubin AST ALT Alkaline Phosphatase Total Creatine Kinase CK-MB (CK-2) C-Reactive Protein Total Protein Albumin Vitamin B12 Urine WBC (Auto) Salicylates Acetaminophen Miscellaneous Test Crossmatch 05/08/19 05/08/19 05/09/19 18:02 21:56 00:18 WBC RBC Hgb Hct MCV MCH MCHC RDW Plt Count Lymph % (Auto) [place] % (Auto) Lymph # Seg Neutrophils % Seg Neuts % (Manual) Lymphocytes % (Manual) Nucleated RBC % Seg Neutrophils # Seg Neutrophils # Man Lymphocytes # (Manual) Monocytes # (Manual) PT INR APTT D-Dimer POC ABG pH ABG pH POC ABG pCO2 POC ABG pO2 ABG pO2 ABG HCO3 ABG O2 Saturation ABG Base Excess ABG Hemoglobin VBG pH Oxyhemoglobin Sodium Potassium Chloride Carbon Dioxide BUN Creatinine Glucose POC Glucose 247 H 212 H 182 H Hemoglobin A1c Lactic Acid Calcium Phosphorus Magnesium Iron TIBC Direct Bilirubin AST ALT Alkaline Phosphatase Total Creatine Kinase CK-MB (CK-2) C-Reactive Protein Total Protein Albumin Vitamin B12 Urine WBC (Auto) Salicylates Acetaminophen Miscellaneous Test Crossmatch 05/09/19 05/09/19 05/09/19 04:30 04:30 04:30 WBC RBC Hgb Hct MCV MCH MCHC RDW Plt Count Lymph % (Auto) [place] % (Auto) 10.1 H Lymph # Seg Neutrophils % Seg Neuts % (Manual) Lymphocytes % (Manual) Nucleated RBC % Seg Neutrophils # Seg Neutrophils # Man Lymphocytes # (Manual) Monocytes # (Manual) PT INR APTT D-Dimer POC ABG pH ABG pH POC ABG pCO2 POC ABG pO2 ABG pO2 ABG HCO3 ABG O2 Saturation ABG Base Excess ABG Hemoglobin VBG pH Oxyhemoglobin Sodium Potassium Chloride Carbon Dioxide BUN 19 H Creatinine 0.2 L Glucose 108 H POC Glucose Hemoglobin A1c 6.3 H Lactic Acid Calcium Phosphorus Magnesium Iron TIBC Direct Bilirubin AST ALT Alkaline Phosphatase Total Creatine Kinase CK-MB (CK-2) C-Reactive Protein Total Protein Albumin Vitamin B12 Urine WBC (Auto) Salicylates Acetaminophen Miscellaneous Test Crossmatch 05/09/19 05/09/19 05/09/19 05:27 11:52 17:43 WBC RBC Hgb Hct MCV MCH MCHC RDW Plt Count Lymph % (Auto) [place] % (Auto) Lymph # Seg Neutrophils % Seg Neuts % (Manual) Lymphocytes % (Manual) Nucleated RBC % Seg Neutrophils # Seg Neutrophils # Man Lymphocytes # (Manual) Monocytes # (Manual) PT INR APTT D-Dimer POC ABG pH ABG pH POC ABG pCO2 POC ABG pO2 ABG pO2 ABG HCO3 ABG O2 Saturation ABG Base Excess ABG Hemoglobin VBG pH Oxyhemoglobin Sodium Potassium Chloride Carbon Dioxide BUN Creatinine Glucose POC Glucose 115 H 171 H 113 H Hemoglobin A1c Lactic Acid Calcium Phosphorus Magnesium Iron TIBC Direct Bilirubin AST ALT Alkaline Phosphatase Total Creatine Kinase CK-MB (CK-2) C-Reactive Protein Total Protein Albumin Vitamin B12 Urine WBC (Auto) Salicylates Acetaminophen Miscellaneous Test Crossmatch 05/09/19 05/10/19 05/10/19 23:53 06:30 11:39 WBC RBC Hgb Hct MCV MCH MCHC RDW Plt Count Lymph % (Auto) [place] % (Auto) Lymph # Seg Neutrophils % Seg Neuts % (Manual) Lymphocytes % (Manual) Nucleated RBC % Seg Neutrophils # Seg Neutrophils # Man Lymphocytes # (Manual) Monocytes # (Manual) PT INR APTT D-Dimer POC ABG pH ABG pH POC ABG pCO2 POC ABG pO2 ABG pO2 ABG HCO3 ABG O2 Saturation ABG Base Excess ABG Hemoglobin VBG pH Oxyhemoglobin Sodium Potassium Chloride Carbon Dioxide BUN Creatinine Glucose POC Glucose 274 H 160 H 150 H Hemoglobin A1c Lactic Acid Calcium Phosphorus Magnesium Iron TIBC Direct Bilirubin AST ALT Alkaline Phosphatase Total Creatine Kinase CK-MB (CK-2) C-Reactive Protein Total Protein Albumin Vitamin B12 Urine WBC (Auto) Salicylates Acetaminophen Miscellaneous Test Crossmatch 05/10/19 05/11/19 05/11/19 16:45 00:25 06:40 WBC RBC Hgb Hct MCV MCH MCHC RDW Plt Count Lymph % (Auto) [place] % (Auto) Lymph # Seg Neutrophils % Seg Neuts % (Manual) Lymphocytes % (Manual) Nucleated RBC % Seg Neutrophils # Seg Neutrophils # Man Lymphocytes # (Manual) Monocytes # (Manual) PT INR APTT D-Dimer POC ABG pH ABG pH POC ABG pCO2 POC ABG pO2 ABG pO2 ABG HCO3 ABG O2 Saturation ABG Base Excess ABG Hemoglobin VBG pH Oxyhemoglobin Sodium Potassium Chloride Carbon Dioxide BUN Creatinine Glucose POC Glucose 176 H 114 H 63 L Hemoglobin A1c Lactic Acid Calcium Phosphorus Magnesium Iron TIBC Direct Bilirubin AST ALT Alkaline Phosphatase Total Creatine Kinase CK-MB (CK-2) C-Reactive Protein Total Protein Albumin Vitamin B12 Urine WBC (Auto) Salicylates Acetaminophen Miscellaneous Test Crossmatch 05/11/19 05/11/19 05/11/19 12:18 17:00 23:46 WBC RBC Hgb Hct MCV MCH MCHC RDW Plt Count Lymph % (Auto) [place] % (Auto) Lymph # Seg Neutrophils % Seg Neuts % (Manual) Lymphocytes % (Manual) Nucleated RBC % Seg Neutrophils # Seg Neutrophils # Man Lymphocytes # (Manual) Monocytes # (Manual) PT INR APTT D-Dimer POC ABG pH ABG pH POC ABG pCO2 POC ABG pO2 ABG pO2 ABG HCO3 ABG O2 Saturation ABG Base Excess ABG Hemoglobin VBG pH Oxyhemoglobin Sodium Potassium Chloride Carbon Dioxide BUN Creatinine Glucose POC Glucose 142 H 192 H 286 H Hemoglobin A1c Lactic Acid Calcium Phosphorus Magnesium Iron TIBC Direct Bilirubin AST ALT Alkaline Phosphatase Total Creatine Kinase CK-MB (CK-2) C-Reactive Protein Total Protein Albumin Vitamin B12 Urine WBC (Auto) Salicylates Acetaminophen Miscellaneous Test Crossmatch 05/12/19 05/12/19 05/12/19 05:05 11:48 17:28 WBC RBC Hgb Hct MCV MCH MCHC RDW Plt Count Lymph % (Auto) [place] % (Auto) Lymph # Seg Neutrophils % Seg Neuts % (Manual) Lymphocytes % (Manual) Nucleated RBC % Seg Neutrophils # Seg Neutrophils # Man Lymphocytes # (Manual) Monocytes # (Manual) PT INR APTT D-Dimer POC ABG pH ABG pH POC ABG pCO2 POC ABG pO2 ABG pO2 ABG HCO3 ABG O2 Saturation ABG Base Excess ABG Hemoglobin VBG pH Oxyhemoglobin Sodium Potassium Chloride Carbon Dioxide BUN Creatinine Glucose POC Glucose 174 H 235 H 410 H Hemoglobin A1c Lactic Acid Calcium Phosphorus Magnesium Iron TIBC Direct Bilirubin AST ALT Alkaline Phosphatase Total Creatine Kinase CK-MB (CK-2) C-Reactive Protein Total Protein Albumin Vitamin B12 Urine WBC (Auto) Salicylates Acetaminophen Miscellaneous Test Crossmatch 05/12/19 05/13/19 05/13/19 23:41 05:15 11:16 WBC RBC Hgb Hct MCV MCH MCHC RDW Plt Count Lymph % (Auto) [place] % (Auto) Lymph # Seg Neutrophils % Seg Neuts % (Manual) Lymphocytes % (Manual) Nucleated RBC % Seg Neutrophils # Seg Neutrophils # Man Lymphocytes # (Manual) Monocytes # (Manual) PT INR APTT D-Dimer POC ABG pH ABG pH POC ABG pCO2 POC ABG pO2 ABG pO2 ABG HCO3 ABG O2 Saturation ABG Base Excess ABG Hemoglobin VBG pH Oxyhemoglobin Sodium Potassium Chloride Carbon Dioxide BUN Creatinine Glucose POC Glucose 176 H 148 H 229 H Hemoglobin A1c Lactic Acid Calcium Phosphorus Magnesium Iron TIBC Direct Bilirubin AST ALT Alkaline Phosphatase Total Creatine Kinase CK-MB (CK-2) C-Reactive Protein Total Protein Albumin Vitamin B12 Urine WBC (Auto) Salicylates Acetaminophen Miscellaneous Test Crossmatch 05/13/19 05/14/19 05/14/19 17:33 00:04 05:42 WBC RBC Hgb Hct MCV MCH MCHC RDW Plt Count Lymph % (Auto) [place] % (Auto) Lymph # Seg Neutrophils % Seg Neuts % (Manual) Lymphocytes % (Manual) Nucleated RBC % Seg Neutrophils # Seg Neutrophils # Man Lymphocytes # (Manual) Monocytes # (Manual) PT INR APTT D-Dimer POC ABG pH ABG pH POC ABG pCO2 POC ABG pO2 ABG pO2 ABG HCO3 ABG O2 Saturation ABG Base Excess ABG Hemoglobin VBG pH Oxyhemoglobin Sodium Potassium Chloride Carbon Dioxide BUN Creatinine Glucose POC Glucose 108 H 246 H 144 H Hemoglobin A1c Lactic Acid Calcium Phosphorus Magnesium Iron TIBC Direct Bilirubin AST ALT Alkaline Phosphatase Total Creatine Kinase CK-MB (CK-2) C-Reactive Protein Total Protein Albumin Vitamin B12 Urine WBC (Auto) Salicylates Acetaminophen Miscellaneous Test Crossmatch 05/14/19 05/14/19 19:35 23:19 WBC RBC Hgb Hct MCV MCH MCHC RDW Plt Count Lymph % (Auto) [place] % (Auto) Lymph # Seg Neutrophils % Seg Neuts % (Manual) Lymphocytes % (Manual) Nucleated RBC % Seg Neutrophils # Seg Neutrophils # Man Lymphocytes # (Manual) Monocytes # (Manual) PT INR APTT D-Dimer POC ABG pH ABG pH POC ABG pCO2 POC ABG pO2 ABG pO2 ABG HCO3 ABG O2 Saturation ABG Base Excess ABG Hemoglobin VBG pH Oxyhemoglobin Sodium Potassium Chloride Carbon Dioxide BUN Creatinine Glucose POC Glucose 345 H 236 H Hemoglobin A1c Lactic Acid Calcium Phosphorus Magnesium Iron TIBC Direct Bilirubin AST ALT Alkaline Phosphatase Total Creatine Kinase CK-MB (CK-2) C-Reactive Protein Total Protein Albumin Vitamin B12 Urine WBC (Auto) Salicylates Acetaminophen Miscellaneous Test Crossmatch Allied health notes reviewed: nursing
[2019-05-15] MEDS: ENOXAPARIN SUB-Q SCH (10:10)
[2019-05-15] MEDS: PEPCID PO SCH ×2 (10:11→23:21)
[2019-05-15] MEDS: METOPROLOL PO SCH ×2 (10:11→23:22)
[2019-05-15] MEDS: KEPPRA PO SCH ×2 (10:11→23:21)
[2019-05-15] MEDS: PROVIGIL PO SCH (10:12)
[2019-05-15] MEDS: SODIUM CHLORIDE FLUSH SYRINGE 10 ML IV PRN (10:12)
--- NOTE | 2019-05-15 16:50 | Discharge Summary ---
Providers - Providers Date of Admission: 03/29/19 23:34 Date of discharge: 05/16/19 Attending physician: RAY MARTINEZ 03/29/19 23:34 Consult to Physician [CONS] Routine Comment: Consulting Provider: AYAAN PEREZ Physician Instructions: Reason For Exam: cc 03/30/19 11:24 Consult to Dietitian/Nutrition [CONS] Routine Physician Instructions: Reason For Exam: Reason for Consult: Evaluate nutritional intake 03/30/19 12:02 Consult to Dietitian/Nutrition [CONS] Routine Physician Instructions: Reason For Exam: after NPO status removed Reason for Consult: Write/Manage Tube Feeding 03/30/19 14:04 Consult to Physician [CONS] Routine Comment: Consulting Provider: YRN NUNEZ Physician Instructions: Reason For Exam: sepsis 03/30/19 15:56 PICC Line Placement [Consult to PICC Line RN] [CONS] Routine Reason For Exam: VASOPRESSORS Type Line:: PICC 04/01/19 18:09 Consult to Dietitian/Nutrition [CONS] Routine Physician Instructions: Assess nutrtn needs, initiate, modify, manage TF Reason For Exam: Reason for Consult: Write/Manage Tube Feeding Reason for Consult: Write/Manage Tube Feeding 04/02/19 11:31 Consult to Physician [CONS] Routine Comment: Consulting Provider: YRN NUNEZ Physician Instructions: Reason For Exam: fever with yolanda in stool 04/02/19 14:29 Consult to Physician [CONS] Routine Comment: Consulting Provider: MELLISA CATALAN Physician Instructions: Reason For Exam: AMS 04/06/19 06:45 Consult to Physician [CONS] Routine Comment: Consulting Provider: KAVITA GAFFNEY Physician Instructions: Reason For Exam: capsular abscess seen on CT angiogram chest 04/07/19 08:22 Consult to Physician [CONS] Routine Comment: Consulting Provider: SASHA MARTINEZ Physician Instructions: Reason For Exam: Anoxic brain Injury, continuation of care 04/09/19 18:54 Consult to Wound/ET Nurse [CONS] Stat Reason For Exam: wound eval left arm,right arm and left foot 05/03/19 17:38 Consult to Wound/ET Nurse [CONS] Routine Reason For Exam: wound re-eval. Primary care physician: [employer] Hospitalization Condition: Fair Hospital course: Patient is a 29 year old woman from [place] with a history of IDDM who presented to [facility] ED on 03/29/2019 following a cardiac arrest. She was traveling with friend when she became unresponsive in the back seat. EMS was called, CPR was started and continued in the emergency room. Patient was intubated in the ER, noted to be hypotensiveand she was started on dobutamine, epinephrine and Levophed drip. She was found to be in DKA with BG ~2200 with several metabolic derangements. She was treated with IV insulin drip and admitted to the ICU. BP improved and she was weaned off pressors. Still intubated on vent, minimal response. It appears she suffered ANOXIC brain injury prior to arrival as time down (without O2) unknown. Patient remained in comatose state. She underwent tracheostomy and PEG placement. Tracheostomy was re-adjusted on 04/17/19. She has a DNR status order. Discharge Diagnoses: DKA Metabolic acidosis Cardiac arrest due to Acidosis from DKA Anoxic encephalopathy/brain injury Uncontrolled DM type 1 with hyperglycemia Acute respiratory failure s/p intubated, off vent Generalized Anasacara Shock hypotensive +/- sepsis Sepsis with possible aspiration PNA Head lice, multiple dosing of Permethin given Acute renal failure, most likely due to ATN with vasomotor nephropathy - resolved Anemia, acute on chronic s/p 2 Units PRBC transfused Hyperkalemia, Hypernatremia Hypokalemia, Shock liver with elevated LFT and Coagulopathy Liver lesion Hypermagnesemia Hyperphosphatemia Stage 1 sacral ulcer, poa Poor prognosis DNR Disposition: discharge to Inpatient Hospice at [facility] [place], [place] I called mother Amberly [phone] at 4:55pm, no details left Disposition: [facility] ([facility]) Time spent for discharge: 36 minutes Core Measure Documentation - Palliative Care Palliative Care/ Comfort Measures: Not Applicable - Core Measures Any of the following diagnoses?: none - VTE Discharge Requirements Deep Vein Thrombosis/Pulmonary Embolism Present on Admission: No Has pt received <5 days of overlap therapy or INR<2.0: No Anticoagulant overlap therapy prescribed at discharge: No Contraindication No Overlap Therapy order at DC: Not Indicated Exam - Physical Exam Narrative exam: Gen: On full MVS and tolerating HEENT: facial edema, atraumatic. Trach bed clean with no drainage, opens eyes spontanously Neck: supple, no JVD Heart: S1 and S2 reg, Tachycardia, no murmurs, rubs or gallop Lungs: Clear to auscultation, no rhonchi, no wheeze Abd: soft, non tender, non distended, normal BS, Ext: anasarca, leg edema, no cyanosis Neuro: Minimal responsive, does not follow commands, Skin: see full skin assessment. Stage 1 sacral ulcer - Constitutional Vitals: Temp Pulse Resp BP Pulse Ox 98.2 F 119 H 18 105/77 99 05/15/19 12:26 05/15/19 12:26 05/15/19 12:26 05/15/19 12:26 05/15/19 15:47 Plan Activity: fall precautions Diet: per dietitian instruction (Glucerna 1.2 calorie, 50 ml/hr, flush 80 ml of free water q4hrs) Follow up with: PRIMARY CARE, [Primary Care Provider] - 7 Days Prescriptions: fentaNYL [Duragesic] 25 mcg TD Q3D #15 patch Metoprolol [Lopressor TAB] 37.5 mg FEEDTUBE BID #60 tablet Scopolamine [Transderm-Scop] 1 each TD Q3D #30 patch
--- NOTE | 2019-05-15 17:08 | Progress Note ---
Assessment and Plan Assessment and plan: Patient is a 29 year old woman with a history of diabetes was brought to the emergency room following a cardiac arrest. Her last well-known time was 10:30 in the morning, she was traveling with a friend, she was unresponsive in the back seat. EMS was called, CPR was started and continued here in the emergency room. Patient was intubated in the ER, noted hypotensive started on dobutamine, epinephrine and Levophed drip, given IV fluids, found to be in DKA with BG ~2200, several metabolic derangements - placed on insulin drip and admitted to ICU. BP improved and she was weaned off pressors. Still intubated on vent, minimal response. patient has been in coma for several days, no improvement. She has a DNR status order. Uncontrolled DM type 1 with hyperglycemia - increase Lantus dose, give extra 10 units - increase SSI Acute respiratory failure s/p intubated, off vent - s/p trach and peg - Tracheostomy re-adjusted on 04/17/19 - on vent, cont nebs, - s/p Trach POD 3 - Pulm following - Aspiration precautions - VAP bundle Acute anoxic encephalopathy, POA - from cardiac arrest for DM - Neurology following -MR concerning for anoxic Brain injury Cardiac arrest s/p resuscitation - likely 2/2 severe hyperglycemia - preserved EF on 2D echo Generalized Anasacara -Given a dose of Bumex DKA, severe - BG was >2200 on admission - s/p insulin drip. cont iv fluid - monitor BG q4h, on TF and on subqu insulin - adjust dose as needed Shock hypotensive +/- sepsis - resolved Now off pressors. Was on vasopressin, Levophed, Phenylephrine Sepsis with possible aspiration PNA - evident on CXR on admission with left sided infiltrates - cont abx per ID - Competed abx - Abx discontinued following notation that no evidence of liver lesion not consistent with infection per ID - Leucocytosis and thrombocytosis are likely reactive from hepatic subcapsular hematoma Head lice - multiple dosing of Permethin given - continue isolation Acute renal failure, likely vasomotor nephropathy - resolved - cont iv fluid, monitor BMP Anemia, acute on chronic - no sign of blood loss s/p 2 Units PRBC transfused Hyperkalemia, resolved with fluid and insulin Hypernatremia Resolved hypokalemia, resolved Shock liver with elevated LFT and Coagulopathy - due to cardiac arrest and hypotension - cont to monitor Liver lesion ID Physician following Discontinued abx, not consistent with infection as noted above Hypermagnesemia - monitor levels as needed Hyperphosphatemia -cont to monitor, improved Stage 1 sacral ulcer, poa - upper ext blisters - pressure ulcer prevention strategies - wound care VTE Prophylaxis with Lovenox Poor prognosis DNR status Disposition: continue inpatient care, await placement in [place], [place] I called mother Amberly [phone], left nonspecific message History Interval history: Patient was seen and examined. Follow-up on current diagnosis respiratory failure. No overnight events reported to me.. Imaging, nursing note, chart, labs and old chart reviewed. Hospitalist Physical - Physical exam Narrative exam: Gen: On full MVS and tolerating HEENT: facial edema, atraumatic. Trach bed clean with no drainage, opens eyes spontanously Neck: supple, no JVD Heart: S1 and S2 reg, Tachycardia, no murmurs, rubs or gallop Lungs: Clear to auscultation, no rhonchi, no wheeze Abd: soft, non tender, non distended, normal BS, Ext: anasarca, leg edema, no cyanosis Neuro: Minimal responsive, does not follow commands, Skin: see full skin assessment. Stage 1 sacral ulcer - Constitutional Vitals: Temp Pulse Resp BP Pulse Ox 98.2 F 119 H 18 105/77 99 05/15/19 12:26 05/15/19 12:26 05/15/19 12:26 05/15/19 12:26 05/15/19 15:47 General appearance: Present: other (intubated) Results - Labs CBC & Chem 7: 05/09/19 04:30 05/09/19 04:30 Labs: Laboratory Last Values WBC 5.9 K/mm3 (4.5-11.0) 05/09/19 04:30 RBC 3.70 M/mm3 (3.65-5.03) 05/09/19 04:30 Hgb 11.6 gm/dl (10.1-14.3) 05/09/19 04:30 Hct 35.0 % (30.3-42.9) 05/09/19 04:30 MCV 95 fl (79-97) 05/09/19 04:30 MCH 31 pg (28-32) 05/09/19 04:30 MCHC 33 % (30-34) 05/09/19 04:30 RDW 15.1 % (13.2-15.2) 05/09/19 04:30 Plt Count 380 K/mm3 (140-440) 05/09/19 04:30 Lymph % (Auto) 27.3 % (13.4-35.0) 05/09/19 04:30 [facility] % (Auto) 10.1 % (0.0-7.3) H 05/09/19 04:30 Eos % (Auto) 1.9 % (0.0-4.3) 05/09/19 04:30 Baso % (Auto) 0.8 % (0.0-1.8) 05/09/19 04:30 Lymph # 1.6 K/mm3 (1.2-5.4) 05/09/19 04:30 [facility] # 0.6 K/mm3 (0.0-0.8) 05/09/19 04:30 Eos # 0.1 K/mm3 (0.0-0.4) 05/09/19 04:30 Baso # 0.0 K/mm3 (0.0-0.1) 05/09/19 04:30 Add Manual Diff Complete 04/01/19 05:01 Total Counted 100 04/01/19 05:01 Seg Neutrophils % 59.9 % (40.0-70.0) 05/09/19 04:30 Seg Neuts % (Manual) 71.0 % (40.0-70.0) H 04/01/19 05:01 Band Neutrophils % 0 % 04/01/19 05:01 Lymphocytes % (Manual) 20.0 % (13.4-35.0) 04/01/19 05:01 Reactive Lymphs % (Man) 0 % 04/01/19 05:01 Monocytes % (Manual) 7.0 % (0.0-7.3) 04/01/19 05:01 Eosinophils % (Manual) 2.0 % (0.0-4.3) 04/01/19 05:01 Basophils % (Manual) 0 % (0.0-1.8) 04/01/19 05:01 Metamyelocytes % 0 % 04/01/19 05:01 Myelocytes % 0 % 04/01/19 05:01 Promyelocytes % 0 % 04/01/19 05:01 Blast Cells % 0 % 04/01/19 05:01 Nucleated RBC % Not Reportable 04/01/19 05:01 Seg Neutrophils # 3.6 K/mm3 (1.8-7.7) 05/09/19 04:30 Seg Neutrophils # Man 4.8 K/mm3 (1.8-7.7) 04/01/19 05:01 Band Neutrophils # 0.0 K/mm3 04/01/19 05:01 Lymphocytes # (Manual) 1.4 K/mm3 (1.2-5.4) 04/01/19 05:01 Abs React Lymphs (Man) 0.0 K/mm3 04/01/19 05:01 Monocytes # (Manual) 0.5 K/mm3 (0.0-0.8) 04/01/19 05:01 Eosinophils # (Manual) 0.1 K/mm3 (0.0-0.4) 04/01/19 05:01 Basophils # (Manual) 0.0 K/mm3 (0.0-0.1) 04/01/19 05:01 Metamyelocytes # 0.0 K/mm3 04/01/19 05:01 Myelocytes # 0.0 K/mm3 04/01/19 05:01 Promyelocytes # 0.0 K/mm3 04/01/19 05:01 Blast Cells # 0.0 K/mm3 04/01/19 05:01 WBC Morphology Not Reportable 04/01/19 05:01 Hypersegmented Neuts Not Reportable 04/01/19 05:01 Hyposegmented Neuts Not Reportable 04/01/19 05:01 Hypogranular Neuts Not Reportable 04/01/19 05:01 Smudge Cells Not Reportable 04/01/19 05:01 Toxic Granulation Not Reportable 04/01/19 05:01 Toxic Vacuolation Not Reportable 04/01/19 05:01 Dohle Bodies Not Reportable 04/01/19 05:01 Pelger-Huet Anomaly Not Reportable 04/01/19 05:01 Wong Rods Not Reportable 04/01/19 05:01 Platelet Estimate Not Reportable 04/01/19 05:01 Clumped Platelets Not Reportable 04/01/19 05:01 Plt Clumps, EDTA Not Reportable 04/01/19 05:01 Large Platelets Not Reportable 04/01/19 05:01 Giant Platelets Not Reportable 04/01/19 05:01 Platelet Satelliting Not Reportable 04/01/19 05:01 Plt Morphology Comment Not Reportable 04/01/19 05:01 RBC Morphology Normal 04/01/19 05:01 Dimorphic RBCs Not Reportable 04/01/19 05:01 Polychromasia Not Reportable 04/01/19 05:01 Hypochromasia Not Reportable 04/01/19 05:01 Poikilocytosis Not Reportable 04/01/19 05:01 Anisocytosis Not Reportable 04/01/19 05:01 Microcytosis Not Reportable 04/01/19 05:01 Macrocytosis Not Reportable 04/01/19 05:01 Spherocytes Not Reportable 04/01/19 05:01 Pappenheimer Bodies Not Reportable 04/01/19 05:01 Sickle Cells Not Reportable 04/01/19 05:01 Target Cells Not Reportable 04/01/19 05:01 Tear Drop Cells Not Reportable 04/01/19 05:01 Ovalocytes Not Reportable 04/01/19 05:01 Helmet Cells Not Reportable 04/01/19 05:01 [place] Bodies Not Reportable 04/01/19 05:01 [place] Rings Not Reportable 04/01/19 05:01 [place] Cells Not Reportable 04/01/19 05:01 Bite Cells Not Reportable 04/01/19 05:01 Crenated Cell Not Reportable 04/01/19 05:01 Elliptocytes Not Reportable 04/01/19 05:01 Acanthocytes (Spur) Not Reportable 04/01/19 05:01 Rouleaux Not Reportable 04/01/19 05:01 Hemoglobin C Crystals Not Reportable 04/01/19 05:01 Schistocytes Not Reportable 04/01/19 05:01 Malaria parasites Not Reportable 04/01/19 05:01 Benja Bodies Not Reportable 04/01/19 05:01 Hem Pathologist Commnt No 04/01/19 05:01 PT 13.9 Sec. (12.2-14.9) 04/01/19 17:14 INR 1.10 (0.87-1.13) 04/01/19 17:14 APTT 74.5 Sec. (24.2-36.6) H* 03/29/19 19:20 Fibrinogen 313 mg/dl (211-480) 04/01/19 17:14 D-Dimer 4526.86 ng/mlDDU (0-234) H 04/06/19 00:06 Heparin Anti-Xa, Unfract Negative (Negative) 03/31/19 15:00 POC ABG pH 7.565 (7.35-7.45) H 04/19/19 04:35 ABG pH 7.396 pH Units (7.350-7.450) 04/03/19 05:35 POC ABG pCO2 36.2 (35-45) 04/19/19 04:35 ABG pCO2 32.2 mm Hg 04/03/19 05:35 POC ABG pO2 88 (80-105) 04/19/19 04:35 ABG pO2 97.7 mm Hg (80.0-90.0) H 04/03/19 05:35 POC ABG HCO3 32.8 (22-26 mml/L) 04/19/19 04:35 ABG HCO3 19.3 mmol/L (20.0-26.0) L 04/03/19 05:35 POC ABG Total CO2 34 (23-27mmol/L) 04/19/19 04:35 POC ABG O2 Sat 98 04/19/19 04:35 ABG O2 Saturation 97.6 % (95.0-99.0) 04/03/19 05:35 ABG O2 Content 10.9 (0.0-44) 04/03/19 05:35 POC ABG Base Excess 11 ((-2) - (+3)mmol/L) 04/19/19 04:35 ABG Base Excess -5.0 mmol/L (-2.0-3.0) L 04/03/19 05:35 ABG Hemoglobin 8.0 gm/dl (12.0-16.0) L 04/03/19 05:35 ABG Carboxyhemoglobin 2.1 % (0.0-5.0) 04/03/19 05:35 ABG Methemoglobin 0.5 % (0.0-1.5) 04/03/19 05:35 VBG pH 6.800 (7.320-7.420) L* 03/29/19 19:47 Oxyhemoglobin 95.1 % (95.0-99.0) 04/03/19 05:35 FiO2 40 % 04/19/19 04:35 Sodium 142 mmol/L (137-145) 05/09/19 04:30 Potassium 4.1 mmol/L (3.6-5.0) 05/09/19 04:30 Chloride 102.3 mmol/L (98-107) 05/09/19 04:30 Carbon Dioxide 26 mmol/L (22-30) 05/09/19 04:30 Anion Gap 18 mmol/L 05/09/19 04:30 BUN 19 mg/dL (7-17) H 05/09/19 04:30 Creatinine 0.2 mg/dL (0.7-1.2) L 05/09/19 04:30 Estimated GFR > 60 ml/min 05/09/19 04:30 BUN/Creatinine Ratio 95 % 05/09/19 04:30 Glucose 108 mg/dL (65-100) H 05/09/19 04:30 POC Glucose 103 (70-105) 05/15/19 12:36 Hemoglobin A1c 6.3 % (4-6) H 05/09/19 04:30 Lactic Acid 3.30 mmol/L (0.7-2.0) H* 03/31/19 07:50 Calcium 9.8 mg/dL (8.4-10.2) 05/09/19 04:30 Phosphorus 4.10 mg/dL (2.5-4.5) 04/09/19 16:25 Magnesium 1.70 mg/dL (1.7-2.3) 04/22/19 03:57 Iron 26 ug/dL (37-170) L 03/31/19 08:20 TIBC 193 mcg/dL (250-450) L 03/31/19 08:20 Total Bilirubin 0.20 mg/dL (0.1-1.2) 04/22/19 03:57 Direct Bilirubin 0.2 mg/dL (0-0.2) 04/02/19 07:48 Indirect Bilirubin 0.5 mg/dL 04/02/19 07:48 AST 60 units/L (5-40) H 04/22/19 03:57 ALT 31 units/L (7-56) 04/22/19 03:57 Alkaline Phosphatase 204 units/L (35-129) H 04/22/19 03:57 Total Creatine Kinase 2465 units/L (30-135) H 03/30/19 05:26 CK-MB (CK-2) 52.7 ng/mL (0.0-4.0) H 03/30/19 05:26 CK-MB (CK-2) Rel Index 2.1 (0-4) 03/30/19 05:26 Troponin T < 0.010 ng/mL (0.00-0.029) 04/06/19 05:20 C-Reactive Protein 2.40 mg/dL (0.00-1.30) H 03/30/19 12:57 Total Protein 7.6 g/dL (6.3-8.2) 04/22/19 03:57 Albumin 3.1 g/dL (3.9-5) L 04/22/19 03:57 Albumin/Globulin Ratio 0.7 % 04/22/19 03:57 Serotonin Release Assay See scanned result 03/31/19 15:00 Vitamin B12 > 2000 pg/mL (211-911) H 03/31/19 08:20 Folate > 20 ng/mL (7.3-26.0) 03/31/19 08:20 HCG, Qual Negative (Negative) 03/29/19 19:20 Urine Color Yellow (Yellow) 05/02/19 07:08 Urine Turbidity Slightly-cloudy (Clear) 05/02/19 07:08 Urine pH 6.0 (5.0-7.0) 05/02/19 07:08 Ur Specific [place] 1.020 (1.003-1.030) 05/02/19 07:08 Urine Protein <15 mg/dl mg/dL (Negative) 05/02/19 07:08 Urine Glucose (UA) >=500 mg/dL (Negative) 05/02/19 07:08 Urine Ketones Neg mg/dL (Negative) 05/02/19 07:08 Urine Blood Neg (Negative) 05/02/19 07:08 Urine Nitrite Neg (Negative) 05/02/19 07:08 Urine Bilirubin Neg (Negative) 05/02/19 07:08 Urine Urobilinogen < 2.0 mg/dL (<2.0) 05/02/19 07:08 Ur Leukocyte Esterase Neg (Negative) 05/02/19 07:08 Urine WBC (Auto) 6.0 /HPF (0.0-6.0) 05/02/19 07:08 Urine RBC (Auto) 1.0 /HPF (0.0-6.0) 05/02/19 07:08 U Epithel Cells (Auto) 4.0 /HPF (0-13.0) 04/30/19 Unknown Urine Bacteria (Auto) 1+ /HPF (Negative) 05/02/19 07:08 Amorphous Crystals Few 05/02/19 07:08 Urine Mucus Few /HPF 05/02/19 07:08 Salicylates 0.8 mg/dL (2.8-20.0) L 03/30/19 Unknown Urine Opiates Screen Presumptive negative 03/29/19 23:10 Urine Methadone Screen Presumptive negative 03/29/19 23:10 Acetaminophen < 5.0 ug/mL (10.0-30.0) L 03/30/19 Unknown Ur Barbiturates Screen Presumptive negative 03/29/19 23:10 Ur Phencyclidine Scrn Presumptive negative 03/29/19 23:10 Ur Amphetamines Screen Presumptive negative 03/29/19 23:10 U Benzodiazepines Scrn Presumptive negative 03/29/19 23:10 Urine Cocaine Screen Presumptive negative 03/29/19 23:10 U Marijuana (THC) Screen Presumptive negative 03/29/19 23:10 Drugs of Abuse Note Disclamer 03/29/19 23:10 Heparin-induced Plt Ab Negative (Negative) 03/31/19 15:00 UF Heparin High Dose 0 % Release 03/31/19 15:00 FABIAN UFH Low Dose 0.1 0 % Release 03/31/19 15:00 FABIAN UFH Low Dose 0.5 0 % Release 03/31/19 15:00 Hepatitis A IgM Ab Non-reactive (NonReactive) 03/30/19 Unknown Hep Bs Antigen Non-reactive (Negative) 03/30/19 Unknown Hep B Core IgM Ab Non-reactive (NonReactive) 03/30/19 Unknown Hepatitis C Antibody Non-reactive (NonReactive) 03/30/19 Unknown Miscellaneous Test Flexitest 1 H 03/30/19 14:00 Blood Type O POSITIVE 03/30/19 03:30 Antibody Screen Negative 03/30/19 03:30 Crossmatch See Detail 03/30/19 03:30 Active Medications - Current Medications Current Medications: Generic Name Dose Route Start Last Admin Trade Name Freq PRN Reason Stop Dose Admin Acetaminophen 650 mg 03/29/19 23:34 05/14/19 23:10 Tylenol PO 650 mg Q4H PRN Administration Pain MILD(1-3)/Fever >100.5/WARE Lipase/Protease/Amylase 1 each 04/02/19 11:44 Pancreaze 10,500 Unit FEEDTUBE PRN PRN For Clogged Feeding Tube Dextrose 50 ml 04/21/19 12:03 D50w (25gm) Syringe IV PRN PRN Hypoglycemia Enoxaparin Sodium 40 mg 04/14/19 10:00 05/15/19 10:10 Lovenox SUB-Q 40 mg QDAY@1000 ZAMZAM Administration Famotidine 20 mg 04/02/19 10:00 05/15/19 10:11 Pepcid PO 20 mg BID ZAMZAM Administration Fentanyl 25 mcg 04/14/19 14:00 05/14/19 15:56 Duragesic TD 25 mcg Q3D ZAMZAM Administration Glycopyrrolate 1 mg 04/22/19 20:00 05/15/19 14:00 Robinul FEEDTUBE 1 mg TID ZAMZAM Administration Hydrophilic Ointment 1 applic 03/30/19 11:24 04/22/19 08:37 Vaseline Lip Therapy TP 1 applic Q2HR PRN Administration Dry Lips Insulin Glargine 25 units 05/08/19 15:26 05/14/19 23:10 Lantus SUB-Q 25 units QHS ZAMZAM Administration Insulin Human Lispro 0 unit 05/07/19 18:00 05/15/19 12:42 Humalog SUB-Q Not Given Q6HR [facility] Protocol Levetiracetam 500 mg 04/03/19 10:00 05/15/19 10:11 Keppra PO 500 mg BID ZAMZAM Administration Metoprolol Tartrate 5 mg 04/14/19 13:06 04/22/19 08:29 Lopressor IV 5 mg Q6HR PRN Administration Tachyarrhythmias Metoprolol Tartrate 37.5 mg 05/09/19 22:00 05/15/19 10:11 Lopressor PO 37.5 mg BID ZAMZAM Administration Modafinil 200 mg 05/14/19 10:00 05/15/19 10:12 Provigil PO 200 mg QAM ZAMZAM Administration Multi-Ingred Cream/Lotion/Oil/Oint 1 applic 03/30/19 11:24 04/06/19 11:39 Artificial Tears Ophth Oint OU 1 applic Q4HR PRN Administration Dry Eye(s) Ondansetron HCl 4 mg 03/29/19 23:34 Zofran IV Q8H PRN Nausea And Vomiting Scopolamine 1 each 04/17/19 12:00 05/14/19 12:00 Transderm-Scop TD 1 each Q3D ZAMZAM Administration Simple Syrup 15 ml 04/02/19 11:44 05/11/19 06:37 Simple Syrup FEEDTUBE 15 ml PRN PRN Administration Hypoglycemia Simple Syrup 30 ml 04/02/19 11:44 Simple Syrup FEEDTUBE PRN PRN Hypoglycemia Sodium Bicarbonate 325 mg 04/02/19 11:44 Sodium Bicarbonate FEEDTUBE PRN PRN For Clogged Feeding Tube Sodium Chloride 10 ml 03/29/19 23:34 05/15/19 10:12 Sodium Chloride Flush Syringe 10 Ml IV 10 ml PRN PRN Administration LINE FLUSH Nutrition/Malnutrition Assess - Dietary Evaluation Nutrition/Malnutrition Findings: Nutrition Notes Start: 03/30/19 13:14 Freq: Status: Active Protocol: Document 05/14/19 14:38 OH (Rec: 05/14/19 14:43 OH [id number]) Nutrition Notes Initial or Follow up Reassessment Current Diagnosis Decubitus(Pressure Ulcer), Diabetes,Respiratory Failure Other Pertinent Diagnosis s/p cardiac arrest, anoxic encephalopathy Current Diet TF - Glucerna 1.2 at 50 ml/hr Labs/Tests Reviewed Pertinent Medications Reviewed Height 5 ft Weight 46.5 kg [place] Body Weight (kg) 45.45 BMI 20.0 Weight change and time frame Wt noted to be upward trending . Nursing staff to monitor trend and monitor for accuracy in weighing. Subjective/Other Information F/U: TF running at gola rate of 50 ml/hr. Mother at patient 's bedside. Pt. awaiting placement closer to home in [place] . Percent of energy/protein needs met: 100/100% Burn Absent Trauma Absent Minimum of two criteria Yes Body Fat Depletion Moderate depletion (severe) Muscle Mass Moderate Depletion (severe) Protein-Calorie Malnutrition Non-Severe Is patient on ventilator? No Is Patient Ambulatory and/or Out of Bed No REE-([facility]-confined to bed) 1324.224 Kcal/Kg value to use for calculation 40 Approximate Energy Requirements Using 1860 kcal/Kg Calculation Used for Recommendations Kcal/kg Additional Notes Pro needs 1.2-1.5g/k-62g/ day Fluid needs 1ml/kcal Nutrition Intervention Change Diet Order: Cont TF Nutrition Support: Glucerna 1.2 at 50ml/hr with 80ml water flush q4h. Kcal 1,440 Protein (gm) 72 Fluid (mL) 966 Goal #1 TF tolerance Goal #2 TF to meet >75% energy and pro needs Goal #3 Wt maintenance and/or gain Follow-Up By: 05/18/19 Additional Comments F/U: stable TF, wt
[2019-05-15] MEDS: LANTUS SUB-Q SCH (23:15)
[2019-05-16] MEDS: HumaLOG SUB-Q SCH ×2 (00:45→06:24)
[2019-05-16] MEDS: PEPCID PO SCH (09:20)
[2019-05-16] MEDS: ROBINUL FEEDTUBE SCH (09:20)
[2019-05-16] MEDS: PROVIGIL PO SCH (09:21)
[2019-05-16] MEDS: KEPPRA PO SCH (09:22)
[2019-05-16] MEDS: METOPROLOL PO SCH (09:22)
[2019-05-16 09:23] VITALS: BP 126/90
== END 2019-05-16 09:49 | disposition hospice, inpatient (51) | DRG 4 ==
LOC: ED 19:03 → CC1 23:34 → IMCU 04-19 17:02 → 3A 04-23 13:50
PROVIDERS: ADMIT Internal Medicine; ATTEND Internal Medicine
PROC: 5A1955Z Respiratory Ventilation, Greater than 96 Consecutive Hours (ICD-10-PCS; principal; 2019-03-29)
PROC: 0BH17EZ Insertion of Endotracheal Airway into Trachea, Via Natural or Artificial Opening (ICD-10-PCS; 2019-03-29)
PROC: 4A033R1 Measurement of Arterial Saturation, Peripheral, Percutaneous Approach (ICD-10-PCS; 2019-03-29)
PROC: 06HY33Z Insertion of Infusion Device into Lower Vein, Percutaneous Approach (ICD-10-PCS; 2019-03-29)
PROC: B54BZZA Ultrasonography of Right Lower Extremity Veins, Guidance (ICD-10-PCS; 2019-03-29)
PROC: 5A12012 Performance of Cardiac Output, Single, Manual (ICD-10-PCS; 2019-03-29)
PROC: 30233N1 Transfusion of Nonautologous Red Blood Cells into Peripheral Vein, Percutaneous Approach (ICD-10-PCS; 2019-03-31)
PROC: 0B113F4 Bypass Trachea to Cutaneous with Tracheostomy Device, Percutaneous Approach (ICD-10-PCS; 2019-04-13)
PROC: 0BJ08ZZ Inspection of Tracheobronchial Tree, Via Natural or Artificial Opening Endoscopic (ICD-10-PCS; 2019-04-13)
PROC: 0DH63UZ Insertion of Feeding Device into Stomach, Percutaneous Approach (ICD-10-PCS; 2019-04-17)
PROC: 0BW1XFZ Revision of Tracheostomy Device in Trachea, External Approach (ICD-10-PCS; 2019-04-17)
PROC: 0B21XFZ Change Tracheostomy Device in Trachea, External Approach (ICD-10-PCS; 2019-04-25)
DX: A41.9 Sepsis, unspecified organism (principal); I46.9 Cardiac arrest, cause unspecified; E10.10 Type 1 diabetes mellitus with ketoacidosis without coma; N17.0 Acute kidney failure with tubular necrosis; E87.5 Hyperkalemia; E83.39 Other disorders of phosphorus metabolism; K72.00 Acute and subacute hepatic failure without coma; E83.41 Hypermagnesemia; D68.9 Coagulation defect, unspecified; G92 Toxic encephalopathy; E87.1 Hypo-osmolality and hyponatremia; B85.0 Pediculosis due to Pediculus humanus capitis; R65.21 Severe sepsis with septic shock; J69.0 Pneumonitis due to inhalation of food and vomit; G93.1 Anoxic brain damage, not elsewhere classified; L89.151 Pressure ulcer of sacral region, stage 1; Z88.8 Allergy status to other drugs, medicaments and biological substances; Z79.01 Long term (current) use of anticoagulants; Z79.899 Other long term (current) drug therapy; Z79.4 Long term (current) use of insulin; Z66 Do not resuscitate; Z51.5 Encounter for palliative care; E87.0 Hyperosmolality and hypernatremia; K76.9 Liver disease, unspecified; J96.01 Acute respiratory failure with hypoxia; N39.0 Urinary tract infection, site not specified; B95.2 Enterococcus as the cause of diseases classified elsewhere; E87.6 Hypokalemia
CPT/HCPCS: 31720; 36415; 36600; 70450; 70551; 71045; 71275; 74018; 74178; 76700; 80048; 80053; 80074; 80076; 80307; 80320; 81001; 82140; 82550; 82553; 82607; 82747; 82803; 82805; 82962; 83036; 83550; 83735; 84100; 84484; 84703; 85007; 85014; 85018; 85025; 85027; 85379; 85384; 85610; 85730; 86022; 86140; 86850; 86900; 86901; 86920; 87040; 87070; 87076; 87086; 87116; 87186; 87205; 93005; 93010; 93306; 94002; 94003; 94640; 94760; 95819; 96361; 96365; 99292; G0378; G0480; J0171; J0456; J0692; J0696; J1250; J1644; J1650; J1815; J1940; J1953; J2060; J2250; J2310; J2370; J2543; J2704; J3010; J3370; J3480; J7030; J7040; J7050; J7070; P9016; Q9967